=== PATIENT | male | born 1955 | race American Indian/Alaskan Native ===

== ENCOUNTER 2018-12-04 09:31 | Outpatient (CLI) | payer OTHER ==
--- NOTE | 2018-12-04 14:18 | Mammography Report ---
BILATERAL DIGITAL DIAGNOSTIC MAMMOGRAM with CAD and BILATERAL BREAST ULTRASOUND: 12/04/18 CLINICAL: 63-year-old male with a breast lump or mass identified on recent CT at [facility]. COMPARISON:08/29/15 FINDINGS: The breasts are mostly fatty.Moderate bilateral subareolar fibroglandular densities, left greater than right with a pattern that is stable since the previous exam. No mass, architectural distortion or suspicious calcifications. Ultrasound of both breasts (including all four quadrants and the retroareolar area) was performed and demonstrated moderate bilateral subareolar fibroglandular structures, greater on the left than the right. No mass or suspicious shadowing. Ultrasound of bilateral axillae demonstrated several bilateral axillary lymph nodes with central fat and benign morphology. No suspicious lymph nodes. IMPRESSION: No mammographic evidence of malignancy.Bilateral benign gynecomastia, worse on the left than the right. Bilateral benign axillary lymph nodes. No mass. BI-RADS CATEGORY: 2 -- Benign RECOMMENDATION: Clinical follow-up. COMMENT: Patient follow-up letters are generated by our [employer] application.
== END 2018-12-04 09:32 | disposition home or self-care (01) ==
LOC: MAMMO 09:31
DX: D36.0 Benign neoplasm of lymph nodes (principal); N62 Hypertrophy of breast
CPT/HCPCS: 77066

== ENCOUNTER 2020-09-07 12:46 | Inpatient (IN) | payer OTHER ==
[2020-09-07] MEDS ORDERED: MINERAL OIL/PETROLATUM, WHITE OPHTH OINT 3.5 GM OU PRN (13:08)
[2020-09-07] MEDS ORDERED: LIP THERAPY VASELINE TP PRN (13:08)
--- NOTE | 2020-09-07 13:11 | Emergency Department Report ---
<KARIN MEADE - Last Filed: 09/07/20 17:06> ED General Adult HPI - General Chief complaint: Cardiac Arrest/CPR Stated complaint: PASSED OUT Time Seen by Provider: 09/07/20 13:03 - Related Data Allergies Allergy/AdvReac Type Severity Reaction Status Date / Time Unable to Assess Allergy Verified 09/07/20 13:43 ED Medical Decision Making - Lab Data Result diagrams: 09/07/20 14:00 09/07/20 14:00 - Radiology Data Ordering Physician: JAZMÍN GASTELUM MD Date of Service: 09/07/20 Procedure(s): CT head/brain wo con Accession Number(s): [id number] cc: JAZMÍN GASTELUM MD CT head/brain wo con INDICATION: Altered Mental Status. TECHNIQUE: Routine CT head without contrast. All CT scans at this location are performed using CT dose reduction for ALARA by means of automated exposure control. COMPARISON: None. FINDINGS: BRAIN / INTRACRANIAL CONTENTS: No acute hemorrhage, mass effect, midline shift, or hydrocephalus. No appreciable acute large territorial or lacunar infarct. No chronic infarct or focal atrophy. Normal brain volume and ventricular/sulcal size for age. ORBITS: No significant abnormality of visualized orbits. SINUSES / MASTOIDS: No significant abnormality of visualized sinuses and mastoid air cells. ADDITIONAL FINDINGS: None. IMPRESSION: 1. No acute intracranial abnormality. Signer Name: Federico Valderrama MD Signed: 09/07/2020 4:40 PM Workstation Name: [id number] Patient was too large to fit in the CT scanner for CTA of the chest therefore a VQ scan was ordered. ED Disposition Clinical Impression: Cardiac arrest, Respiratory acidosis, Suspected 2019 novel coronavirus infection, Morbid obesity, Transaminitis Disposition: DC-09 OP ADMIT IP TO THIS HOSP Is pt being admited?: Yes Does the pt Need Aspirin: No Condition: Critical Time of Disposition: 17:07 <JAZMÍN GASTELUM - Last Filed: 09/08/20 11:16> ED General Adult HPI - General PUI?: Yes Source: EMS (Verbal report received from emergency medical services. EMS documentation not available at time of chart dictation ), RN notes reviewed Mode of arrival: Stretcher Limitations: Altered Mental Status, Physical Limitation - History of Present Illness Initial comments: The patient was evaluated in the emergency department for symptoms described in the history of present illness. He/she was evaluated in the context of the global COVID-19 pandemic, which necessitated consideration that the patient might be at risk for infection with the virus that causes COVID-19. Institutional protocols and algorithms that pertain to the evaluation of patients at risk for COVID-19 are in a state of rapid change based on information released by regulatory bodies including the CDC and federal and state organizations. These policies and algorithms were followed during the patient's care in the emergency department. Please note that these policies, procedures and recommendations changed on a rapid basis. During the entire history and physical examination, I had on complete personal protective equipment. The patient is a 65-year-old gentleman. He is not known to myself previously. He is brought to the hospital by emergency medical services as an out of hospital cardiac arrest. EMS reports that the patient was waiting to get Covid testing, and appeared to pass out. Apparently, CPR was started, uncertain if by fire department, BLS, or from family members. EMS also reports the patient was defibrillated at least x1, for uncertain rhythm. EMS reports to myself that the patient initially was in PEA. EMS unable to intubate patient, and thus placed a Dayron airway. They initiated high-quality CPR in the field, standard ACLS interventions, and were able to obtain return of spontaneous circulation. Upon arrival to this ER, patient receiving [id number] ventilation through a Dayron airway. He has sinus tachycardia and equal pulses. He has a GCS of 3. Emergently intubated by myself using maximum barrier precautions, using a glide scope, please see procedure note. At this time, patient still in a coma with a GCS of 3. He had nonspecific myoclonic jerking activity. He is not accompanied by friends or family at this time for additional information or collateral information. At this point time, no additional history is available. EMS verbally reports to myself that there was concern for possible Covid -: This afternoon Radiation: other Quality: other Consistency: other Improves with: other Worsens with: other Associated Symptoms: other Treatments Prior to Arrival: other ED Review of Systems ROS: Stated complaint: PASSED OUT Other details as noted in HPI Comment: Unobtainable due to pts medical conditions ED Physical Exam - General Limitations: Altered Mental Status General appearance: obtunded, obese - Head Head exam: Present: atraumatic, normocephalic - Eye Eye exam: Present: normal appearance, other (Pupils dilated and do not react to light) - ENT ENT exam: Present: normal exam, normal orophraynx, mucous membranes moist, normal external ear exam, other (Secretions noted in oropharynx) - Neck Neck exam: Present: normal inspection. Absent: tenderness, meningismus - Respiratory Respiratory exam: Present: respiratory distress, rhonchi - Cardiovascular Cardiovascular Exam: Present: regular rate, normal rhythm, normal heart sounds. Absent: bradycardia, tachycardia, irregular rhythm, systolic murmur, diastolic murmur, rubs, gallop - GI/Abdominal GI/Abdominal exam: Present: soft. Absent: distended, tenderness, guarding, rebound, rigid, pulsatile mass - Rectal Rectal exam: Present: normal inspection - exam: Present: normal inspection External exam: Present: normal external exam - Extremities Exam Extremities exam: Present: normal inspection, pedal edema, other (Puncture melton noted in the left lower extremity, consistent with EMS attempt at IO line placement) - Back Exam Back exam: Present: normal inspection. Absent: tenderness, CVA tenderness (R), CVA tenderness (L), paraspinal tenderness, vertebral tenderness - Neurological Exam Neurological exam: Present: altered, other (Nonverbal, intubated, GCS of 3) - Skin Skin exam: Present: warm, dry, intact, normal color. Absent: rash ED Course Vital Signs 09/07/20 09/07/20 09/07/20 13:00 13:10 13:30 Temperature Pulse Rate 82 94 H 88 Respiratory Rate Blood Pressure 132/68 Blood Pressure 197/91 199/87 [Left] O2 Sat by Pulse 92 99 95 Oximetry 09/07/20 09/07/20 09/07/20 14:00 14:30 14:37 Temperature Pulse Rate 75 76 74 Respiratory 28 H Rate Blood Pressure Blood Pressure 210/91 190/87 [Left] O2 Sat by Pulse 97 94 97 Oximetry 09/07/20 09/07/20 09/07/20 14:45 15:00 15:15 Temperature Pulse Rate 69 69 66 Respiratory 28 H 28 H 28 H Rate Blood Pressure 187/79 Blood Pressure 187/79 [Left] O2 Sat by Pulse 97 97 96 Oximetry 09/07/20 09/07/20 09/07/20 15:30 15:45 16:00 Temperature Pulse Rate 64 62 61 Respiratory 28 H 28 H 28 H Rate Blood Pressure 184/77 184/77 188/79 Blood Pressure 184/78 186/73 [Left] O2 Sat by Pulse 96 97 96 Oximetry 09/07/20 09/07/20 09/07/20 16:37 16:45 17:01 Temperature Pulse Rate 75 72 65 Respiratory 30 H 28 H 28 H Rate Blood Pressure 188/79 188/79 207/87 Blood Pressure [Left] O2 Sat by Pulse 99 99 99 Oximetry 09/07/20 09/07/20 09/07/20 17:15 17:31 17:45 Temperature Pulse Rate 60 70 89 Respiratory 28 H 28 H 32 H Rate Blood Pressure 188/79 194/46 194/46 Blood Pressure [Left] O2 Sat by Pulse 99 94 86 Oximetry 09/07/20 09/07/20 09/07/20 18:01 18:15 18:31 Temperature Pulse Rate 96 H 108 H 82 Respiratory 33 H 33 H 31 H Rate Blood Pressure 220/88 225/78 226/80 Blood Pressure [Left] O2 Sat by Pulse 90 88 96 Oximetry 09/07/20 09/07/20 09/07/20 18:32 18:45 19:00 Temperature Pulse Rate 92 H 110 H Respiratory 35 H 35 H Rate Blood Pressure 226/80 157/73 Blood Pressure [Left] O2 Sat by Pulse 92 Oximetry 09/07/20 09/07/20 09/07/20 19:30 19:31 20:00 Temperature Pulse Rate 120 H 114 H 117 H Respiratory 27 H 25 H Rate Blood Pressure 162/52 130/51 Blood Pressure [Left] O2 Sat by Pulse 94 94 Oximetry 09/07/20 09/07/20 09/07/20 20:31 21:01 21:30 Temperature Pulse Rate 120 H 119 H 119 H Respiratory 29 H 28 H 30 H Rate Blood Pressure 141/48 134/47 156/56 Blood Pressure [Left] O2 Sat by Pulse 93 97 97 Oximetry 09/07/20 09/07/20 09/07/20 22:01 22:30 23:01 Temperature Pulse Rate 116 H 111 H 109 H Respiratory 20 31 H 28 H Rate Blood Pressure 130/41 118/37 133/51 Blood Pressure [Left] O2 Sat by Pulse 93 91 94 Oximetry 09/07/20 09/07/20 09/07/20 23:30 23:41 23:57 Temperature Pulse Rate 102 H 113 H 71 Respiratory 27 H 23 Rate Blood Pressure 138/45 140/123 140/123 Blood Pressure [Left] O2 Sat by Pulse 99 93 92 Oximetry 09/08/20 09/08/20 09/08/20 00:30 00:45 01:00 Temperature 103.8 F H Pulse Rate 63 58 L Respiratory 15 27 H Rate Blood Pressure 80/34 84/36 Blood Pressure [Left] O2 Sat by Pulse 99 95 Oximetry 09/08/20 09/08/20 09/08/20 01:15 01:31 01:45 Temperature Pulse Rate 54 L 54 L 54 L Respiratory 11 L 12 12 Rate Blood Pressure 75/33 82/38 84/37 Blood Pressure [Left] O2 Sat by Pulse 97 99 100 Oximetry 09/08/20 09/08/20 09/08/20 02:01 02:15 02:31 Temperature 101.3 F H Pulse Rate 53 L 56 L 56 L Respiratory 12 16 16 Rate Blood Pressure 80/35 95/38 Blood Pressure 92/38 [Left] O2 Sat by Pulse 100 99 100 Oximetry 09/08/20 09/08/20 09/08/20 02:45 03:00 03:31 Temperature Pulse Rate 66 62 58 L Respiratory 15 12 11 L Rate Blood Pressure 95/38 85/34 100/46 Blood Pressure [Left] O2 Sat by Pulse 100 100 100 Oximetry 09/08/20 09/08/20 09/08/20 03:45 04:00 04:15 Temperature Pulse Rate 59 L 73 70 Respiratory 15 24 16 Rate Blood Pressure 100/46 104/43 104/43 Blood Pressure [Left] O2 Sat by Pulse 99 96 98 Oximetry 09/08/20 09/08/20 09/08/20 04:25 04:30 04:45 Temperature Pulse Rate 73 69 61 Respiratory 19 25 H Rate Blood Pressure 104/44 117/46 117/46 Blood Pressure [Left] O2 Sat by Pulse 98 100 100 Oximetry 09/08/20 09/08/20 09/08/20 05:00 05:15 05:30 Temperature 104.8 F H Pulse Rate 60 62 68 Respiratory 14 13 30 H Rate Blood Pressure 98/41 120/51 Blood Pressure 106/42 [Left] O2 Sat by Pulse 100 100 100 Oximetry 09/08/20 09/08/20 05:45 06:00 Temperature Pulse Rate 68 67 Respiratory 30 H 30 H Rate Blood Pressure 121/52 129/59 Blood Pressure [Left] O2 Sat by Pulse 100 100 Oximetry - Reevaluation(s) Reevaluation #1: 09/07/20 14:58 Differential diagnosis, including but not limited to: Acute coronary syndrome, pulmonary embolism, intracranial hemorrhage, hypercarbic arrest, hypoxemic arres t, multifactorial cardiac arrest Assessment and plan: 65-year-old gentleman, morbidly obese, status post out of hospital cardiac arrest, nontraumatic, with return of spontaneous circulation, GCS of 3 at this time. This hospital does not have a postarrest hypothermia protocol at this time. We will obtain appropriate laboratory studies, and obtain emergent CT scan of the brain, CT angiogram chest to exclude bleed, dissection, pulmonary embolism. Patient will ventilated on lung protective strategy, initial arterial blood gas demonstrated uncompensated respiratory acidosis. Initial lactic acid reviewed and appreciated, likely secondary to cardiac arrest. Patient does not require vasopressor support at this time, in fact he is rather hypertensive. Contacted critical care physician on-call, Dr. Carrillo, discussed current patient history and physical, he agrees with placement into the intensive care unit. He requests that patient not be maintained on sedative drips. Unfortunately, one of our respiratory therapists sustained an accidental needlestick injury, while caring for this patient. Therefore, we contacted the patient's , who provided verbal consent over the phone for emergent testing for HIV, and hepatitis. We are waiting for remainder of laboratory studies, CT scan of the brain, and CT scan of the chest at this time. He will likely require admission to our ICU, i f no condition is identified that would require transfer. Elevated troponin is likely a type II troponin leak, likely secondary to cardiac arrest, and CPR. Given concern for Covid, patient will be given Decadron empirically. He will be maintained on isolation precautions, and a courtesy consultation will be placed to infectious disease. Reassess after initial data points. 09/07/20 15:03 171 lbs [place] Body Weight Equivalent to 78 kg Actual body weight is 103% (1.0x) ideal body weight We will therefore use 78 kg to guide fluid resuscitative therapy 09/07/20 15:06 Transaminitis reviewed and appreciated. Uncertain if shock liver, secondary to Covid pathology, or both. Mild renal insufficiency appreciated, however, GFR greater than 40. Should be okay for CT angiogram. Reevaluation #2: 09/07/20 15:35 Inflammatory markers elevated, suggestive of Covid. CT scan brain, chest pending. Discussed patient's case with hospital physician, Dr. Khai Wilkins, We discussed the patient's history, physical, pertinent laboratory studies. He requests call back once CT scans have resulted. Care will be transferred to the oncoming physician, Dr. Nicci Meade, to follow-up on the aforementioned CT scans, and if no pathology identified that would require transfer for higher level of care, patient to be admitted to our intensive care unit. - Intubation Time Out Performed: No (Emergency situation) Laryngoscope: fiberoptic video scope Size: 3 Assist Device Used: fiberoptic device ET Tube Size: 7.5 Tube Secured Depth (cm): 23 Tube Secured Location: teeth Tube Placement Confirmation: visualized tube passing t, equal breath sounds bilat, no breath sounds over epi, confirmation by capnometr Patient Tolerated Procedure: well Intubation Complications: none ED Medical Decision Making - Lab Data Result diagrams: 09/07/20 14:00 09/07/20 14:00 Vital Signs 09/07/20 09/07/20 09/07/20 13:00 13:10 13:30 Pulse Rate 82 94 H 88 Blood Pressure 132/68 Blood Pressure 197/91 199/87 [Left] O2 Sat by Pulse 92 99 95 Oximetry 09/07/20 09/07/20 14:00 14:30 Pulse Rate 75 76 Blood Pressure Blood Pressure 210/91 190/87 [Left] O2 Sat by Pulse 97 94 Oximetry Lab Results 09/07/20 09/07/20 09/07/20 Range/Units 13:08 14:00 14:00 WBC 15.7 H (4.5-11.0) K/mm3 RBC 3.71 (3.65-5.03) M/mm3 Hgb 10.2 L (11.8-15.2) gm/dl Hct 32.5 L (35.5-45.6) % MCV 88 (84-94) fl MCH 28 (28-32) pg MCHC 31 L (32-34) % RDW 17.5 H (13.2-15.2) % Plt Count 301 (140-440) K/mm3 Add Manual Diff Complete Total Counted 100 Seg Neuts % (Manual) 72.0 H (40.0-70.0) % Lymphocytes % (Manual) 17.0 (13.4-35.0) % Monocytes % (Manual) 8.0 H (0.0-7.3) % Eosinophils % (Manual) 2.0 (0.0-4.3) % Metamyelocytes % 1.0 % Nucleated RBC % Not Reportable Seg Neutrophils # Man 11.3 H (1.8-7.7) K/mm3 Band Neutrophils # 0.0 K/mm3 Lymphocytes # (Manual) 2.7 (1.2-5.4) K/mm3 Abs React Lymphs (Man) 0.0 K/mm3 Monocytes # (Manual) 1.3 H (0.0-0.8) K/mm3 Eosinophils # (Manual) 0.3 (0.0-0.4) K/mm3 Basophils # (Manual) 0.0 (0.0-0.1) K/mm3 Metamyelocytes # 0.2 K/mm3 Myelocytes # 0.0 K/mm3 Promyelocytes # 0.0 K/mm3 Blast Cells # 0.0 K/mm3 WBC Morphology Not Reportable Hypersegmented Neuts Not Reportable Hyposegmented Neuts Not Reportable Hypogranular Neuts Not Reportable Smudge Cells Not Reportable Toxic Granulation Not Reportable Toxic Vacuolation Not Reportable Dohle Bodies Not Reportable Pelger-Huet Anomaly Not Reportable Justus Rods Not Reportable Platelet Estimate Consistent w auto Clumped Platelets Not Reportable Plt Clumps, EDTA Not Reportable Large Platelets Few Giant Platelets Rare Platelet Satelliting Not Reportable Plt Morphology Comment Not Reportable RBC Morphology Not Reportable Dimorphic RBCs Not Reportable Polychromasia Not Reportable Hypochromasia Not Reportable Poikilocytosis Not Reportable Anisocytosis 1+ Microcytosis Not Reportable Macrocytosis Not Reportable Spherocytes Not Reportable Pappenheimer Bodies Not Reportable Sickle Cells Not Reportable Target Cells Not Reportable Tear Drop Cells Not Reportable Ovalocytes Not Reportable Helmet Cells Not Reportable Batres-Ryegate Bodies Not Reportable [place] Rings Not Reportable [place] Cells Not Reportable Bite Cells Not Reportable Crenated Cell Not Reportable Elliptocytes Not Reportable Acanthocytes (Spur) Not Reportable Rouleaux Not Reportable Hemoglobin C Crystals Not Reportable Schistocytes Not Reportable Malaria parasites Not Reportable [place] Bodies Not Reportable Hem Pathologist Commnt No PT 13.7 (12.2-14.9) Sec. INR 1.06 (0.87-1.13) APTT 33.8 (24.2-36.6) Sec. D-Dimer 8315.85 H (0-234) ng/mlDDU ABG pH (7.320-7.450) POC ABG pCO2 (32.0-48.0) mmHg POC ABG pO2 (83-108) mmHg POC ABG HCO3 POC ABG Base Excess ABG Hemoglobin (12.0-17.5) ABG Oxyhemoglobin (94-98) ABG Methemoglobin (0.0-1.5) ABG Sodium (136.0-145.0) mmol/L ABG Potassium (3.40-4.50) mmol/L ABG Chloride (98-107) mmol/L ABG Glucose (65-95) mg/dL Carboxyhemoglobin (0.5-1.5) FiO2 Estimated GFR ml/min BUN/Creatinine Ratio % Glucose (75-100) mg/dL Lactic Acid (0.7-2.0) mmol/L Lactate Dehydrogenase (91-180) units/L Total Creatine Kinase (55-170) units/L Troponin T (0.00-0.029) ng/mL C-Reactive Protein (0.00-1.30) mg/dL Albumin/Globulin Ratio % TSH (0.270-4.200) mlU/mL Arterial Blood Glucose (65-95) mg/dL Arterial Blood Ionized Calcium (4.6-5.3) mg/dL Urine Color Straw (Yellow) Urine Turbidity Slightly-cloudy (Clear) Urine pH 8.0 H (5.0-7.0) Ur Specific Boaz 1.006 (1.003-1.030) Urine Protein 100 mg/dl (Negative) mg/dL Urine Glucose (UA) Neg (Negative) mg/dL Urine Ketones Neg (Negative) mg/dL Urine Blood Neg (Negative) Urine Nitrite Neg (Negative) Urine Bilirubin Neg (Negative) Urine Urobilinogen < 2.0 (<2.0) mg/dL Ur Leukocyte Esterase Neg (Negative) Urine WBC (Auto) 4.0 (0.0-6.0) /HPF Urine RBC (Auto) 18.0 (0.0-6.0) /HPF U Epithel Cells (Auto) 1.0 (0-13.0) /HPF Urine Mucus Few /HPF Urine Sperm 3+ (REGISTER CLERK) /HPF Salicylates (2.8-20.0) mg/dL Acetaminophen (10.0-30.0) ug/mL Plasma/Serum Alcohol (0-0.07) % Blood Type 09/07/20 09/07/20 09/07/20 Range/Units 14:00 14:00 14:00 WBC (4.5-11.0) K/mm3 RBC (3.65-5.03) M/mm3 Hgb (11.8-15.2) gm/dl Hct (35.5-45.6) % MCV (84-94) fl MCH (28-32) pg MCHC (32-34) % RDW (13.2-15.2) % Plt Count (140-440) K/mm3 Add Manual Diff Total Counted Seg Neuts % (Manual) (40.0-70.0) % Lymphocytes % (Manual) (13.4-35.0) % Monocytes % (Manual) (0.0-7.3) % Eosinophils % (Manual) (0.0-4.3) % Metamyelocytes % % Nucleated RBC % Seg Neutrophils # Man (1.8-7.7) K/mm3 Band Neutrophils # K/mm3 Lymphocytes # (Manual) (1.2-5.4) K/mm3 Abs React Lymphs (Man) K/mm3 Monocytes # (Manual) (0.0-0.8) K/mm3 Eosinophils # (Manual) (0.0-0.4) K/mm3 Basophils # (Manual) (0.0-0.1) K/mm3 Metamyelocytes # K/mm3 Myelocytes # K/mm3 Promyelocytes # K/mm3 Blast Cells # K/mm3 WBC Morphology Hypersegmented Neuts Hyposegmented Neuts Hypogranular Neuts Smudge Cells Toxic Granulation Toxic Vacuolation Dohle Bodies Pelger-Huet Anomaly Justus Rods Platelet Estimate Clumped Platelets Plt Clumps, EDTA Large Platelets Giant Platelets Platelet Satelliting Plt Morphology Comment RBC Morphology Dimorphic RBCs Polychromasia Hypochromasia Poikilocytosis Anisocytosis Microcytosis Macrocytosis Spherocytes Pappenheimer Bodies Sickle Cells Target Cells Tear Drop Cells Ovalocytes Helmet Cells Batres-Ryegate Bodies [place] Rings Manjit Cells Bite Cells Crenated Cell Elliptocytes Acanthocytes (Spur) Rouleaux Hemoglobin C Crystals Schistocytes Malaria parasites Tommie Bodies Hem Pathologist Commnt PT (12.2-14.9) Sec. INR (0.87-1.13) APTT (24.2-36.6) Sec. D-Dimer (0-234) ng/mlDDU ABG pH (7.320-7.450) POC ABG pCO2 (32.0-48.0) mmHg POC ABG pO2 (83-108) mmHg POC ABG HCO3 POC ABG Base Excess ABG Hemoglobin (12.0-17.5) ABG Oxyhemoglobin (94-98) ABG Methemoglobin (0.0-1.5) ABG Sodium (136.0-145.0) mmol/L ABG Potassium (3.40-4.50) mmol/L ABG Chloride (98-107) mmol/L ABG Glucose (65-95) mg/dL Carboxyhemoglobin (0.5-1.5) FiO2 Estimated GFR ml/min BUN/Creatinine Ratio % Glucose 98 (75-100) mg/dL Lactic Acid 4.30 H* (0.7-2.0) mmol/L Lactate Dehydrogenase 882 H (91-180) units/L Total Creatine Kinase 477 H (55-170) units/L Troponin T 0.076 H (0.00-0.029) ng/mL C-Reactive Protein 1.10 (0.00-1.30) mg/dL Albumin/Globulin Ratio % TSH 2.290 (0.270-4.200) mlU/mL Arterial Blood Glucose (65-95) mg/dL Arterial Blood Ionized Calcium (4.6-5.3) mg/dL Urine Color (Yellow) Urine Turbidity (Clear) Urine pH (5.0-7.0) Ur Specific Boaz (1.003-1.030) Urine Protein (Negative) mg/dL Urine Glucose (UA) (Negative) mg/dL Urine Ketones (Negative) mg/dL Urine Blood (Negative) Urine Nitrite (Negative) Urine Bilirubin (Negative) Urine Urobilinogen (<2.0) mg/dL Ur Leukocyte Esterase (Negative) Urine WBC (Auto) (0.0-6.0) /HPF Urine RBC (Auto) (0.0-6.0) /HPF U Epithel Cells (Auto) (0-13.0) /HPF Urine Mucus /HPF Urine Sperm (REGISTER CLERK) /HPF Salicylates (2.8-20.0) mg/dL Acetaminophen (10.0-30.0) ug/mL Plasma/Serum Alcohol (0-0.07) % Blood Type 09/07/20 09/07/20 09/07/20 Range/Units 14:00 14:00 14:00 WBC (4.5-11.0) K/mm3 RBC (3.65-5.03) M/mm3 Hgb (11.8-15.2) gm/dl Hct (35.5-45.6) % MCV (84-94) fl MCH (28-32) pg MCHC (32-34) % RDW (13.2-15.2) % Plt Count (140-440) K/mm3 Add Manual Diff Total Counted Seg Neuts % (Manual) (40.0-70.0) % Lymphocytes % (Manual) (13.4-35.0) % Monocytes % (Manual) (0.0-7.3) % Eosinophils % (Manual) (0.0-4.3) % Metamyelocytes % % Nucleated RBC % Seg Neutrophils # Man (1.8-7.7) K/mm3 Band Neutrophils # K/mm3 Lymphocytes # (Manual) (1.2-5.4) K/mm3 Abs React Lymphs (Man) K/mm3 Monocytes # (Manual) (0.0-0.8) K/mm3 Eosinophils # (Manual) (0.0-0.4) K/mm3 Basophils # (Manual) (0.0-0.1) K/mm3 Metamyelocytes # K/mm3 Myelocytes # K/mm3 Promyelocytes # K/mm3 Blast Cells # K/mm3 WBC Morphology Hypersegmented Neuts Hyposegmented Neuts Hypogranular Neuts Smudge Cells Toxic Granulation Toxic Vacuolation Dohle Bodies Pelger-Huet Anomaly Justus Rods Platelet Estimate Clumped Platelets Plt Clumps, EDTA Large Platelets Giant Platelets Platelet Satelliting Plt Morphology Comment RBC Morphology Dimorphic RBCs Polychromasia Hypochromasia Poikilocytosis Anisocytosis Microcytosis Macrocytosis Spherocytes Pappenheimer Bodies Sickle Cells Target Cells Tear Drop Cells Ovalocytes Helmet Cells Batres-Ryegate Bodies [place] Rings [place] Cells Bite Cells Crenated Cell Elliptocytes Acanthocytes (Spur) Rouleaux Hemoglobin C Crystals Schistocytes Malaria parasites Tommie Bodies Hem Pathologist Commnt PT (12.2-14.9) Sec. INR (0.87-1.13) APTT (24.2-36.6) Sec. D-Dimer (0-234) ng/mlDDU ABG pH (7.320-7.450) POC ABG pCO2 (32.0-48.0) mmHg POC ABG pO2 (83-108) mmHg POC ABG HCO3 POC ABG Base Excess ABG Hemoglobin (12.0-17.5) ABG Oxyhemoglobin (94-98) ABG Methemoglobin (0.0-1.5) ABG Sodium (136.0-145.0) mmol/L ABG Potassium (3.40-4.50) mmol/L ABG Chloride (98-107) mmol/L ABG Glucose (65-95) mg/dL Carboxyhemoglobin (0.5-1.5) FiO2 Estimated GFR ml/min BUN/Creatinine Ratio % Glucose (75-100) mg/dL Lactic Acid (0.7-2.0) mmol/L Lactate Dehydrogenase (91-180) units/L Total Creatine Kinase (55-170) units/L Troponin T (0.00-0.029) ng/mL C-Reactive Protein (0.00-1.30) mg/dL Albumin/Globulin Ratio % TSH (0.270-4.200) mlU/mL Arterial Blood Glucose (65-95) mg/dL Arterial Blood Ionized Calcium (4.6-5.3) mg/dL Urine Color (Yellow) Urine Turbidity (Clear) Urine pH (5.0-7.0) Ur Specific [place] (1.003-1.030) Urine Protein (Negative) mg/dL Urine Glucose (UA) (Negative) mg/dL Urine Ketones (Negative) mg/dL Urine Blood (Negative) Urine Nitrite (Negative) Urine Bilirubin (Negative) Urine Urobilinogen (<2.0) mg/dL Ur Leukocyte Esterase (Negative) Urine WBC (Auto) (0.0-6.0) /HPF Urine RBC (Auto) (0.0-6.0) /HPF U Epithel Cells (Auto) (0-13.0) /HPF Urine Mucus /HPF Urine Sperm (REGISTER CLERK) /HPF Salicylates < 0.3 L (2.8-20.0) mg/dL Acetaminophen 5.0 L (10.0-30.0) ug/mL Plasma/Serum Alcohol < 0.01 (0-0.07) % Blood Type 09/07/20 09/07/20 09/07/20 Range/Units 14:00 14:00 14:26 WBC (4.5-11.0) K/mm3 RBC (3.65-5.03) M/mm3 Hgb (11.8-15.2) gm/dl Hct (35.5-45.6) % MCV (84-94) fl MCH (28-32) pg MCHC (32-34) % RDW (13.2-15.2) % Plt Count (140-440) K/mm3 Add Manual Diff Total Counted Seg Neuts % (Manual) (40.0-70.0) % Lymphocytes % (Manual) (13.4-35.0) % Monocytes % (Manual) (0.0-7.3) % Eosinophils % (Manual) (0.0-4.3) % Metamyelocytes % % Nucleated RBC % Seg Neutrophils # Man (1.8-7.7) K/mm3 Band Neutrophils # K/mm3 Lymphocytes # (Manual) (1.2-5.4) K/mm3 Abs React Lymphs (Man) K/mm3 Monocytes # (Manual) (0.0-0.8) K/mm3 Eosinophils # (Manual) (0.0-0.4) K/mm3 Basophils # (Manual) (0.0-0.1) K/mm3 Metamyelocytes # K/mm3 Myelocytes # K/mm3 Promyelocytes # K/mm3 Blast Cells # K/mm3 WBC Morphology Hypersegmented Neuts Hyposegmented Neuts Hypogranular Neuts Smudge Cells Toxic Granulation Toxic Vacuolation Dohle Bodies Pelger-Huet Anomaly Justus Rods Platelet Estimate Clumped Platelets Plt Clumps, EDTA Large Platelets Giant Platelets Platelet Satelliting Plt Morphology Comment RBC Morphology Dimorphic RBCs Polychromasia Hypochromasia Poikilocytosis Anisocytosis Microcytosis Macrocytosis Spherocytes Pappenheimer Bodies Sickle Cells Target Cells Tear Drop Cells Ovalocytes Helmet Cells Batres-Ryegate Bodies [place] Rings [place] Cells Bite Cells Crenated Cell Elliptocytes Acanthocytes (Spur) Rouleaux Hemoglobin C Crystals Schistocytes Malaria parasites Tommie Bodies Hem Pathologist Commnt PT (12.2-14.9) Sec. INR (0.87-1.13) APTT (24.2-36.6) Sec. D-Dimer (0-234) ng/mlDDU ABG pH 7.037 L (7.320-7.450) POC ABG pCO2 92.4 H (32.0-48.0) mmHg POC ABG pO2 130.8 H (83-108) mmHg POC ABG HCO3 24.3 POC ABG Base Excess -7.7 ABG Hemoglobin 11.3 L (12.0-17.5) ABG Oxyhemoglobin 96.6 (94-98) ABG Methemoglobin 0.1 (0.0-1.5) ABG Sodium 141.6 (136.0-145.0) mmol/L ABG Potassium 4.3 (3.40-4.50) mmol/L ABG Chloride 107.0 (98-107) mmol/L ABG Glucose 95 (65-95) mg/dL Carboxyhemoglobin 0.7 (0.5-1.5) FiO2 100 Estimated GFR 46 ml/min BUN/Creatinine Ratio 11 % Glucose (75-100) mg/dL Lactic Acid (0.7-2.0) mmol/L Lactate Dehydrogenase (91-180) units/L Total Creatine Kinase (55-170) units/L Troponin T (0.00-0.029) ng/mL C-Reactive Protein (0.00-1.30) mg/dL Albumin/Globulin Ratio 1.0 % TSH (0.270-4.200) mlU/mL Arterial Blood Glucose 95 (65-95) mg/dL Arterial Blood Ionized Calcium 5.1 (4.6-5.3) mg/dL Urine Color (Yellow) Urine Turbidity (Clear) Urine pH (5.0-7.0) Ur Specific Boaz (1.003-1.030) Urine Protein (Negative) mg/dL Urine Glucose (UA) (Negative) mg/dL Urine Ketones (Negative) mg/dL Urine Blood (Negative) Urine Nitrite (Negative) Urine Bilirubin (Negative) Urine Urobilinogen (<2.0) mg/dL Ur Leukocyte Esterase (Negative) Urine WBC (Auto) (0.0-6.0) /HPF Urine RBC (Auto) (0.0-6.0) /HPF U Epithel Cells (Auto) (0-13.0) /HPF Urine Mucus /HPF Urine Sperm (REGISTER CLERK) /HPF Salicylates (2.8-20.0) mg/dL Acetaminophen (10.0-30.0) ug/mL Plasma/Serum Alcohol (0-0.07) % Blood Type O POSITIVE Lab Results 09/07/20 09/07/20 09/07/20 Range/Units 13:08 14:00 14:00 WBC 15.7 H (4.5-11.0) K/mm3 RBC 3.71 (3.65-5.03) M/mm3 Hgb 10.2 L (11.8-15.2) gm/dl Hct 32.5 L (35.5-45.6) % MCV 88 (84-94) fl MCH 28 (28-32) pg MCHC 31 L (32-34) % RDW 17.5 H (13.2-15.2) % Plt Count 301 (140-440) K/mm3 Add Manual Diff Complete Total Counted 100 Seg Neuts % (Manual) 72.0 H (40.0-70.0) % Lymphocytes % (Manual) 17.0 (13.4-35.0) % Monocytes % (Manual) 8.0 H (0.0-7.3) % Eosinophils % (Manual) 2.0 (0.0-4.3) % Metamyelocytes % 1.0 % Nucleated RBC % Not Reportable Seg Neutrophils # Man 11.3 H (1.8-7.7) K/mm3 Band Neutrophils # 0.0 K/mm3 Lymphocytes # (Manual) 2.7 (1.2-5.4) K/mm3 Abs React Lymphs (Man) 0.0 K/mm3 Monocytes # (Manual) 1.3 H (0.0-0.8) K/mm3 Eosinophils # (Manual) 0.3 (0.0-0.4) K/mm3 Basophils # (Manual) 0.0 (0.0-0.1) K/mm3 Metamyelocytes # 0.2 K/mm3 Myelocytes # 0.0 K/mm3 Promyelocytes # 0.0 K/mm3 Blast Cells # 0.0 K/mm3 WBC Morphology Not Reportable Hypersegmented Neuts Not Reportable Hyposegmented Neuts Not Reportable Hypogranular Neuts Not Reportable Smudge Cells Not Reportable Toxic Granulation Not Reportable Toxic Vacuolation Not Reportable Dohle Bodies Not Reportable Pelger-Huet Anomaly Not Reportable Justus Rods Not Reportable Platelet Estimate Consistent w auto Clumped Platelets Not Reportable Plt Clumps, EDTA Not Reportable Large Platelets Few Giant Platelets Rare Platelet Satelliting Not Reportable Plt Morphology Comment Not Reportable RBC Morphology Not Reportable Dimorphic RBCs Not Reportable Polychromasia Not Reportable Hypochromasia Not Reportable Poikilocytosis Not Reportable Anisocytosis 1+ Microcytosis Not Reportable Macrocytosis Not Reportable Spherocytes Not Reportable Pappenheimer Bodies Not Reportable Sickle Cells Not Reportable Target Cells Not Reportable Tear Drop Cells Not Reportable Ovalocytes Not Reportable Helmet Cells Not Reportable Batres-Ryegate Bodies Not Reportable [place] Rings Not Reportable Manjit Cells Not Reportable Bite Cells Not Reportable Crenated Cell Not Reportable Elliptocytes Not Reportable Acanthocytes (Spur) Not Reportable Rouleaux Not Reportable Hemoglobin C Crystals Not Reportable Schistocytes Not Reportable Malaria parasites Not Reportable [place]mie Bodies Not Reportable Hem Pathologist Commnt No PT 13.7 (12.2-14.9) Sec. INR 1.06 (0.87-1.13) APTT 33.8 (24.2-36.6) Sec. D-Dimer 8315.85 H (0-234) ng/mlDDU ABG pH (7.320-7.450) POC ABG pCO2 (32.0-48.0) mmHg POC ABG pO2 (83-108) mmHg POC ABG HCO3 POC ABG Base Excess ABG Hemoglobin (12.0-17.5) ABG Oxyhemoglobin (94-98) ABG Methemoglobin (0.0-1.5) ABG Sodium (136.0-145.0) mmol/L ABG Potassium (3.40-4.50) mmol/L ABG Chloride (98-107) mmol/L ABG Glucose (65-95) mg/dL Carboxyhemoglobin (0.5-1.5) FiO2 Sodium (137-145) mmol/L Potassium (3.6-5.0) mmol/L Chloride (98-107) mmol/L Carbon Dioxide (22-30) mmol/L Anion Gap mmol/L BUN (9-20) mg/dL Creatinine (0.8-1.3) mg/dL Estimated GFR ml/min BUN/Creatinine Ratio % Glucose (75-100) mg/dL Lactic Acid (0.7-2.0) mmol/L Calcium (8.4-10.2) mg/dL Total Bilirubin (0.1-1.2) mg/dL AST (5-40) units/L ALT (7-56) units/L Alkaline Phosphatase (35-129) units/L Lactate Dehydrogenase (91-180) units/L Total Creatine Kinase (55-170) units/L Troponin T (0.00-0.029) ng/mL C-Reactive Protein (0.00-1.30) mg/dL Total Protein (6.3-8.2) g/dL Albumin (3.9-5) g/dL Albumin/Globulin Ratio % TSH (0.270-4.200) mlU/mL Arterial Blood Glucose (65-95) mg/dL Arterial Blood Ionized Calcium (4.6-5.3) mg/dL Urine Color Straw (Yellow) Urine Turbidity Slightly-cloudy (Clear) Urine pH 8.0 H (5.0-7.0) Ur Specific Boaz 1.006 (1.003-1.030) Urine Protein 100 mg/dl (Negative) mg/dL Urine Glucose (UA) Neg (Negative) mg/dL Urine Ketones Neg (Negative) mg/dL Urine Blood Neg (Negative) Urine Nitrite Neg (Negative) Urine Bilirubin Neg (Negative) Urine Urobilinogen < 2.0 (<2.0) mg/dL Ur Leukocyte Esterase Neg (Negative) Urine WBC (Auto) 4.0 (0.0-6.0) /HPF Urine RBC (Auto) 18.0 (0.0-6.0) /HPF U Epithel Cells (Auto) 1.0 (0-13.0) /HPF Urine Mucus Few /HPF Urine Sperm 3+ (REGISTER CLERK) /HPF Salicylates (2.8-20.0) mg/dL Acetaminophen (10.0-30.0) ug/mL Plasma/Serum Alcohol (0-0.07) % Blood Type Antibody Screen 09/07/20 09/07/20 09/07/20 Range/Units 14:00 14:00 14:00 WBC (4.5-11.0) K/mm3 RBC (3.65-5.03) M/mm3 Hgb (11.8-15.2) gm/dl Hct (35.5-45.6) % MCV (84-94) fl MCH (28-32) pg MCHC (32-34) % RDW (13.2-15.2) % Plt Count (140-440) K/mm3 Add Manual Diff Total Counted Seg Neuts % (Manual) (40.0-70.0) % Lymphocytes % (Manual) (13.4-35.0) % Monocytes % (Manual) (0.0-7.3) % Eosinophils % (Manual) (0.0-4.3) % Metamyelocytes % % Nucleated RBC % Seg Neutrophils # Man (1.8-7.7) K/mm3 Band Neutrophils # K/mm3 Lymphocytes # (Manual) (1.2-5.4) K/mm3 Abs React Lymphs (Man) K/mm3 Monocytes # (Manual) (0.0-0.8) K/mm3 Eosinophils # (Manual) (0.0-0.4) K/mm3 Basophils # (Manual) (0.0-0.1) K/mm3 Metamyelocytes # K/mm3 Myelocytes # K/mm3 Promyelocytes # K/mm3 Blast Cells # K/mm3 WBC Morphology Hypersegmented Neuts Hyposegmented Neuts Hypogranular Neuts Smudge Cells Toxic Granulation Toxic Vacuolation Dohle Bodies Pelger-Huet Anomaly Justus Rods Platelet Estimate Clumped Platelets Plt Clumps, EDTA Large Platelets Giant Platelets Platelet Satelliting Plt Morphology Comment RBC Morphology Dimorphic RBCs Polychromasia Hypochromasia Poikilocytosis Anisocytosis Microcytosis Macrocytosis Spherocytes Pappenheimer Bodies Sickle Cells Target Cells Tear Drop Cells Ovalocytes Helmet Cells Batres-Ryegate Bodies [place] Rings Manjit Cells Bite Cells Crenated Cell Elliptocytes Acanthocytes (Spur) Rouleaux Hemoglobin C Crystals Schistocytes Malaria parasites Tommie Bodies Hem Pathologist Commnt PT (12.2-14.9) Sec. INR (0.87-1.13) APTT (24.2-36.6) Sec. D-Dimer (0-234) ng/mlDDU ABG pH (7.320-7.450) POC ABG pCO2 (32.0-48.0) mmHg POC ABG pO2 (83-108) mmHg POC ABG HCO3 POC ABG Base Excess ABG Hemoglobin (12.0-17.5) ABG Oxyhemoglobin (94-98) ABG Methemoglobin (0.0-1.5) ABG Sodium (136.0-145.0) mmol/L ABG Potassium (3.40-4.50) mmol/L ABG Chloride (98-107) mmol/L ABG Glucose (65-95) mg/dL Carboxyhemoglobin (0.5-1.5) FiO2 Sodium (137-145) mmol/L Potassium (3.6-5.0) mmol/L Chloride (98-107) mmol/L Carbon Dioxide (22-30) mmol/L Anion Gap mmol/L BUN (9-20) mg/dL Creatinine (0.8-1.3) mg/dL Estimated GFR ml/min BUN/Creatinine Ratio % Glucose 98 (75-100) mg/dL Lactic Acid 4.30 H* (0.7-2.0) mmol/L Calcium (8.4-10.2) mg/dL Total Bilirubin (0.1-1.2) mg/dL AST (5-40) units/L ALT (7-56) units/L Alkaline Phosphatase (35-129) units/L Lactate Dehydrogenase 882 H (91-180) units/L Total Creatine Kinase 477 H (55-170) units/L Troponin T 0.076 H (0.00-0.029) ng/mL C-Reactive Protein 1.10 (0.00-1.30) mg/dL Total Protein (6.3-8.2) g/dL Albumin (3.9-5) g/dL Albumin/Globulin Ratio % TSH 2.290 (0.270-4.200) mlU/mL Arterial Blood Glucose (65-95) mg/dL Arterial Blood Ionized Calcium (4.6-5.3) mg/dL Urine Color (Yellow) Urine Turbidity (Clear) Urine pH (5.0-7.0) Ur Specific Boaz (1.003-1.030) Urine Protein (Negative) mg/dL Urine Glucose (UA) (Negative) mg/dL Urine Ketones (Negative) mg/dL Urine Blood (Negative) Urine Nitrite (Negative) Urine Bilirubin (Negative) Urine Urobilinogen (<2.0) mg/dL Ur Leukocyte Esterase (Negative) Urine WBC (Auto) (0.0-6.0) /HPF Urine RBC (Auto) (0.0-6.0) /HPF U Epithel Cells (Auto) (0-13.0) /HPF Urine Mucus /HPF Urine Sperm (REGISTER CLERK) /HPF Salicylates (2.8-20.0) mg/dL Acetaminophen (10.0-30.0) ug/mL Plasma/Serum Alcohol (0-0.07) % Blood Type Antibody Screen 09/07/20 09/07/20 09/07/20 Range/Units 14:00 14:00 14:00 WBC (4.5-11.0) K/mm3 RBC (3.65-5.03) M/mm3 Hgb (11.8-15.2) gm/dl Hct (35.5-45.6) % MCV (84-94) fl MCH (28-32) pg MCHC (32-34) % RDW (13.2-15.2) % Plt Count (140-440) K/mm3 Add Manual Diff Total Counted Seg Neuts % (Manual) (40.0-70.0) % Lymphocytes % (Manual) (13.4-35.0) % Monocytes % (Manual) (0.0-7.3) % Eosinophils % (Manual) (0.0-4.3) % Metamyelocytes % % Nucleated RBC % Seg Neutrophils # Man (1.8-7.7) K/mm3 Band Neutrophils # K/mm3 Lymphocytes # (Manual) (1.2-5.4) K/mm3 Abs React Lymphs (Man) K/mm3 Monocytes # (Manual) (0.0-0.8) K/mm3 Eosinophils # (Manual) (0.0-0.4) K/mm3 Basophils # (Manual) (0.0-0.1) K/mm3 Metamyelocytes # K/mm3 Myelocytes # K/mm3 Promyelocytes # K/mm3 Blast Cells # K/mm3 WBC Morphology Hypersegmented Neuts Hyposegmented Neuts Hypogranular Neuts Smudge Cells Toxic Granulation Toxic Vacuolation Dohle Bodies Pelger-Huet Anomaly Justus Rods Platelet Estimate Clumped Platelets Plt Clumps, EDTA Large Platelets Giant Platelets Platelet Satelliting Plt Morphology Comment RBC Morphology Dimorphic RBCs Polychromasia Hypochromasia Poikilocytosis Anisocytosis Microcytosis Macrocytosis Spherocytes Pappenheimer Bodies Sickle Cells Target Cells Tear Drop Cells Ovalocytes Helmet Cells Batres-Ryegate Bodies [place] Rings [place] Cells Bite Cells Crenated Cell Elliptocytes Acanthocytes (Spur) Rouleaux Hemoglobin C Crystals Schistocytes Malaria parasites Tommie Bodies Hem Pathologist Commnt PT (12.2-14.9) Sec. INR (0.87-1.13) APTT (24.2-36.6) Sec. D-Dimer (0-234) ng/mlDDU ABG pH (7.320-7.450) POC ABG pCO2 (32.0-48.0) mmHg POC ABG pO2 (83-108) mmHg POC ABG HCO3 POC ABG Base Excess ABG Hemoglobin (12.0-17.5) ABG Oxyhemoglobin (94-98) ABG Methemoglobin (0.0-1.5) ABG Sodium (136.0-145.0) mmol/L ABG Potassium (3.40-4.50) mmol/L ABG Chloride (98-107) mmol/L ABG Glucose (65-95) mg/dL Carboxyhemoglobin (0.5-1.5) FiO2 Sodium (137-145) mmol/L Potassium (3.6-5.0) mmol/L Chloride (98-107) mmol/L Carbon Dioxide (22-30) mmol/L Anion Gap mmol/L BUN (9-20) mg/dL Creatinine (0.8-1.3) mg/dL Estimated GFR ml/min BUN/Creatinine Ratio % Glucose (75-100) mg/dL Lactic Acid (0.7-2.0) mmol/L Calcium (8.4-10.2) mg/dL Total Bilirubin (0.1-1.2) mg/dL AST (5-40) units/L ALT (7-56) units/L Alkaline Phosphatase (35-129) units/L Lactate Dehydrogenase (91-180) units/L Total Creatine Kinase (55-170) units/L Troponin T (0.00-0.029) ng/mL C-Reactive Protein (0.00-1.30) mg/dL Total Protein (6.3-8.2) g/dL Albumin (3.9-5) g/dL Albumin/Globulin Ratio % TSH (0.270-4.200) mlU/mL Arterial Blood Glucose (65-95) mg/dL Arterial Blood Ionized Calcium (4.6-5.3) mg/dL Urine Color (Yellow) Urine Turbidity (Clear) Urine pH (5.0-7.0) Ur Specific Boaz (1.003-1.030) Urine Protein (Negative) mg/dL Urine Glucose (UA) (Negative) mg/dL Urine Ketones (Negative) mg/dL Urine Blood (Negative) Urine Nitrite (Negative) Urine Bilirubin (Negative) Urine Urobilinogen (<2.0) mg/dL Ur Leukocyte Esterase (Negative) Urine WBC (Auto) (0.0-6.0) /HPF Urine RBC (Auto) (0.0-6.0) /HPF U Epithel Cells (Auto) (0-13.0) /HPF Urine Mucus /HPF Urine Sperm (REGISTER CLERK) /HPF Salicylates < 0.3 L (2.8-20.0) mg/dL Acetaminophen 5.0 L (10.0-30.0) ug/mL Plasma/Serum Alcohol < 0.01 (0-0.07) % Blood Type Antibody Screen 09/07/20 09/07/20 09/07/20 Range/Units 14:00 14:00 14:26 WBC (4.5-11.0) K/mm3 RBC (3.65-5.03) M/mm3 Hgb (11.8-15.2) gm/dl Hct (35.5-45.6) % MCV (84-94) fl MCH (28-32) pg MCHC (32-34) % RDW (13.2-15.2) % Plt Count (140-440) K/mm3 Add Manual Diff Total Counted Seg Neuts % (Manual) (40.0-70.0) % Lymphocytes % (Manual) (13.4-35.0) % Monocytes % (Manual) (0.0-7.3) % Eosinophils % (Manual) (0.0-4.3) % Metamyelocytes % % Nucleated RBC % Seg Neutrophils # Man (1.8-7.7) K/mm3 Band Neutrophils # K/mm3 Lymphocytes # (Manual) (1.2-5.4) K/mm3 Abs React Lymphs (Man) K/mm3 Monocytes # (Manual) (0.0-0.8) K/mm3 Eosinophils # (Manual) (0.0-0.4) K/mm3 Basophils # (Manual) (0.0-0.1) K/mm3 Metamyelocytes # K/mm3 Myelocytes # K/mm3 Promyelocytes # K/mm3 Blast Cells # K/mm3 WBC Morphology Hypersegmented Neuts Hyposegmented Neuts Hypogranular Neuts Smudge Cells Toxic Granulation Toxic Vacuolation Dohle Bodies Pelger-Huet Anomaly Justus Rods Platelet Estimate Clumped Platelets Plt Clumps, EDTA Large Platelets Giant Platelets Platelet Satelliting Plt Morphology Comment RBC Morphology Dimorphic RBCs Polychromasia Hypochromasia Poikilocytosis Anisocytosis Microcytosis Macrocytosis Spherocytes Pappenheimer Bodies Sickle Cells Target Cells Tear Drop Cells Ovalocytes Helmet Cells Batres-Ryegate Bodies [place] Rings Manjit Cells Bite Cells Crenated Cell Elliptocytes Acanthocytes (Spur) Rouleaux Hemoglobin C Crystals Schistocytes Malaria parasites Tommie Bodies Hem Pathologist Commnt PT (12.2-14.9) Sec. INR (0.87-1.13) APTT (24.2-36.6) Sec. D-Dimer (0-234) ng/mlDDU ABG pH 7.037 L (7.320-7.450) POC ABG pCO2 92.4 H (32.0-48.0) mmHg POC ABG pO2 130.8 H (83-108) mmHg POC ABG HCO3 24.3 POC ABG Base Excess -7.7 ABG Hemoglobin 11.3 L (12.0-17.5) ABG Oxyhemoglobin 96.6 (94-98) ABG Methemoglobin 0.1 (0.0-1.5) ABG Sodium 141.6 (136.0-145.0) mmol/L ABG Potassium 4.3 (3.40-4.50) mmol/L ABG Chloride 107.0 (98-107) mmol/L ABG Glucose 95 (65-95) mg/dL Carboxyhemoglobin 0.7 (0.5-1.5) FiO2 100 Sodium 142 (137-145) mmol/L Potassium 4.5 (3.6-5.0) mmol/L Chloride 105.7 (98-107) mmol/L Carbon Dioxide 24 (22-30) mmol/L Anion Gap 17 mmol/L BUN 20 (9-20) mg/dL Creatinine 1.8 H (0.8-1.3) mg/dL Estimated GFR 46 ml/min BUN/Creatinine Ratio 11 % Glucose 98 (75-100) mg/dL Lactic Acid (0.7-2.0) mmol/L Calcium 9.1 (8.4-10.2) mg/dL Total Bilirubin 0.50 (0.1-1.2) mg/dL AST 310 H (5-40) units/L ALT 339 H (7-56) units/L Alkaline Phosphatase 93 (35-129) units/L Lactate Dehydrogenase (91-180) units/L Total Creatine Kinase (55-170) units/L Troponin T (0.00-0.029) ng/mL C-Reactive Protein (0.00-1.30) mg/dL Total Protein 7.3 (6.3-8.2) g/dL Albumin 3.6 L (3.9-5) g/dL Albumin/Globulin Ratio 1.0 % TSH (0.270-4.200) mlU/mL Arterial Blood Glucose 95 (65-95) mg/dL Arterial Blood Ionized Calcium 5.1 (4.6-5.3) mg/dL Urine Color (Yellow) Urine Turbidity (Clear) Urine pH (5.0-7.0) Ur Specific Boaz (1.003-1.030) Urine Protein (Negative) mg/dL Urine Glucose (UA) (Negative) mg/dL Urine Ketones (Negative) mg/dL Urine Blood (Negative) Urine Nitrite (Negative) Urine Bilirubin (Negative) Urine Urobilinogen (<2.0) mg/dL Ur Leukocyte Esterase (Negative) Urine WBC (Auto) (0.0-6.0) /HPF Urine RBC (Auto) (0.0-6.0) /HPF U Epithel Cells (Auto) (0-13.0) /HPF Urine Mucus /HPF Urine Sperm (REGISTER CLERK) /HPF Salicylates (2.8-20.0) mg/dL Acetaminophen (10.0-30.0) ug/mL Plasma/Serum Alcohol (0-0.07) % Blood Type O POSITIVE Antibody Screen Negative - EKG Data -: EKG Interpreted by [facility] EKG shows normal: sinus rhythm Rate: normal - EKG Data When compared to previous EKG there are: previous EKG unavailable 09/07/20 15:01 Sinus rhythm, 90 bpm, left axis deviation, left anterior fascicular block, QTC prolonged. Abnormal EKG. Not a STEMI. - Radiology Data Radiology results: pending, report reviewed, image reviewed XR chest 1V ap INDICATION / CLINICAL INFORMATION: Altered Mental Status. COMPARISON: None available. FINDINGS: SUPPORT DEVICES: Endotracheal tube terminates appropriately at the level of the clavicular heads. Enteric tube courses beneath the diaphragm. Side-port is beneath the GE junction.. HEART / MEDIASTINUM: Mild cardiomegaly. LUNGS / PLEURA: Bilateral airspace disease. No pneumothorax. ADDITIONAL FINDINGS: No significant additional findings. IMPRESSION: 1. Bilateral airspace disease which could be related to alveolar edema or infection. Signer Name: Johnny Malone MD Signed: 09/07/2020 1:21 PM Workstation Name: [id number] Critical Care Time: Yes Critical care time in (mins) excluding proc time.: 45 Critical care attestation.: If time is entered above; I have spent that time in minutes in the direct care of this critically ill patient, excluding procedure time. ED Disposition Is pt being admited?: Yes Does the pt Need Aspirin: No
[2020-09-07] MEDS ORDERED: dexAMETHasone 4 MG/ML VIAL IV ONE (13:22)
[2020-09-07] MEDS ORDERED: levETIRAcetam 1000 MG/NS 0.75% 1,000 MG/100 ML BAG IV ONE ×2 (13:33→13:49)
[2020-09-07 13:46] LABS: Bilirubin,Urine NEG (Negative); Blood,Urine NEG (Negative); Color,Urine Straw (Yellow); Mucus,Urine FEW /HPF; Sperm,Urine 3+ /HPF (NP); Urobilinogen,Urine < 2.0 mg/dL (<2.0)
[2020-09-07] MEDS: fentaNYL DRIP Premix 2,000 MCG/100 ML BAG IV SCH ×2 (13:55→20:47)
[2020-09-07 14:25] LABS: Hematocrit 32.5 % (35.5-45.6); Hemoglobin 10.2 gm/dl (11.8-15.2); Mean Corpuscular HGB Conc 31 % (32-34); Mean Corpuscular Volume 88 fl (84-94); Platelet Count 301 K/mm3 (140-440); Red Blood Count 3.71 M/mm3 (3.65-5.03); Red Cell Distribution Width 17.5 % (13.2-15.2)
[2020-09-07 14:35] LABS: INR 1.06 (0.87-1.13)
[2020-09-07 14:36] LABS: Partial Thromboplastin Time 33.8 Sec. (24.2-36.6)
[2020-09-07 14:48] LABS: C-Reactive Protein 1.1 mg/dL (0.00-1.30)
[2020-09-07 14:55] LABS: Total Cells Counted 100
[2020-09-07 14:56] LABS: Anisocytosis 1+; Giant Platelets Rare; Large Platelets Few; Platelet Estimate Consistent w Auto
[2020-09-07 15:01] LABS: Albumin 3.6 g/dL (3.9-5); Calcium 9.1 mg/dL (8.4-10.2)
[2020-09-07] MEDS ORDERED: cefTRIAXone/NS 2 GM/100 ML 2 GM/100 ML BAG IV ONE (15:04)
[2020-09-07] MEDS ORDERED: SODIUM CHLORIDE 0.9% 100 ML IVPB IV STA (15:04)
[2020-09-07] MEDS ORDERED: SODIUM CHLORIDE 0.9% 1000 ML 1,000 ML ONE (15:10)
[2020-09-07] MEDS ORDERED: AZITHROMYCIN/NS 500 MG/250 ML 500 MG/250 ML BAG IV ONE (15:34)
[2020-09-07] MEDS: fentaNYL 100 MCG/2 ML INJ IV PRN ×2 (16:20→19:26)
--- NOTE | 2020-09-07 16:44 | Cat Scan Report ---
CT head/brain wo con INDICATION: Altered Mental Status. TECHNIQUE: Routine CT head without contrast. All CT scans at this location are performed using CT dos e reduction for ALARA by means of automated exposure control. COMPARISON: None. FINDINGS: BRAIN / INTRACRANIAL CONTENTS: No acute hemorrhage, mass effect, midline shift, or hydrocephalus. No appreciable acute large territorial or lacunar infarct. No chronic infarct or focal atrophy. Normal b rain volume and ventricular/sulcal size for age. ORBITS: No significant abnormality of visualized orbits. SINUSES / MASTOIDS: No significant abnormality of visualized sinuses and mastoid air cells. ADDITIONAL FINDINGS: None. IMPRESSION: 1. No acute intracranial abnormality. Signer Name: Federico Valderrama MD Signed: 09/07/2020 4:40 PM Workstation Name: [id number]
[2020-09-07] MEDS ORDERED: MORPHINE 2 MG/1 ML INJ IV PRN (17:55)
[2020-09-07] MEDS ORDERED: SODIUM CHLORIDE 0.9% 1000 ML 1,000 ML IV SCH (18:00)
[2020-09-07] MEDS ORDERED: LORazepam 2 MG/ML VIAL IV ONE ×2 (18:06→19:09)
--- NOTE | 2020-09-07 18:07 | History and Physical Report ---
History of Present Illness Date of examination: 09/07/20 Date of admission: 09/07/20 17:07 Chief complaint: Cardio-pulmonary Arrest History of present illness: 65-year-old male brought into the emergency room today by EMS for cardiopulmonary arrest. Patient was said to be awaiting a Covid test when he was said to have passed out. CPR was started and also patient was defibrillated once. CPR was continued on the field by EMS and patient had a spontaneous return of circulation. Upon arrival in the emergency room patient had been receiving bag valve mask ventilation through a Dayron airway. He was tachycardic and was subsequently intubated in the emergency room. Most of the history was obtained from the ER staff as patient is already intubated. Work-up in the emergency room today chest x-ray reveals:Bilateral airspace disease which could be related to alveolar edema or infection. CT scan of the head was unremarkable. Patient could not had a CT angiogram because of his size. Patient is being admitted for cardiopulmonary arrest and also possible Covid pneumonia. Past History Past Medical History: other (Unobtainable) Past Surgical History: Other (Unobtainable) Social history: other (Unobtainable) Family history: other (Unobtainable) Medications and Allergies Allergies Allergy/AdvReac Type Severity Reaction Status Date / Time Unable to Assess Allergy Verified 09/07/20 13:43 Active Meds: Active Medications Dexamethasone (Dexamethasone 4 Mg/Ml Vial) 6 mg IV Q24HR [facility] Fentanyl (Fentanyl 100 Mcg/2 Ml Inj) 50 mcg IV Q10MIN PRN PRN Reason: ANALGESIA Hydrophilic Ointment (Lip Therapy Vaseline) 1 applic TP Q2HR PRN PRN Reason: Dry Lips Fentanyl Citrate (Fentanyl Drip Premix) 2,000 mcg in 100 mls @ 8.825 mls/hr IV TITR [facility]; Protocol Last Admin: 09/07/20 13:55 Dose: 1 mcg/kg/hr, 8.825 mls/hr Documented by: Sodium Chloride (Nacl 0.9% 1000 Ml) 1,000 mls @ 75 mls/hr IV DIRECT [facility] Ceftriaxone Sodium (Rocephin/Ns 2 Gm/100 Ml) 2 gm in 100 mls @ 200 mls/hr IV Q24H [facility]; Protocol Azithromycin (Zithromax/Ns) 500 mg in 250 mls @ 250 mls/hr IV Q24H [facility]; Protocol Morphine Sulfate (Morphine 2 Mg/1 Ml Inj) 2 mg IV Q4H PRN PRN Reason: Pain, Moderate (4-6) Multi-Ingred Cream/Lotion/Oil/Oint (Mineral Oil/Petrolatum, White Ophth Oint 3.5 Gm) 1 applic OU Q4HR PRN PRN Reason: Dry Eye(s) Ondansetron HCl (Ondansetron 4 Mg/2 Ml Inj) 4 mg IV Q8H PRN PRN Reason: Nausea And Vomiting Sodium Chloride (Sodium Chloride 0.9% 10 Ml Flush Syringe) 10 ml IV BID [facility] Sodium Chloride (Sodium Chloride 0.9% 10 Ml Flush Syringe) 10 ml IV PRN PRN PRN Reason: LINE FLUSH Review of Systems ROS unobtainable: due to endotracheal tube Exam - Constitutional Vitals: Temp Pulse Resp BP Pulse Ox 65 186/73 97 09/07/20 16:00 09/07/20 16:00 09/07/20 16:00 General appearance: Present: obese, other (Intubated and Sedated) - EENT Eyes: Present: PERRL, EOM intact. Absent: scleral icterus ENT: hearing intact, clear oral mucosa, dentition normal - Neck Neck: Present: supple, normal ROM - Respiratory Respiratory effort: normal Respiratory: bilateral: diminished - Cardiovascular Rhythm: regular Heart Sounds: Present: S1 & S2. Absent: gallop, systolic murmur, diastolic murmur, rub, click - Extremities Extremities: no ischemia, pulses intact, pulses symmetrical, No edema, normal temperature, normal color, Full ROM Peripheral Pulses: within normal limits - Abdominal General gastrointestinal: Present: soft, non-tender, non-distended, normal bowel sounds. Absent: mass - Integumentary Integumentary: Present: clear, warm, dry. Absent: rash - Musculoskeletal Musculoskeletal: strength equal bilaterally - Psychiatric Psychiatric: cooperative - Neurologic Neurologic: no focal deficits, other (Intubated and Sedated.) HEART Score - HEART Score Troponin: Troponin T 0.076 ng/mL (0.00-0.029) H 09/07/20 14:00 Results - Labs CBC & Chem 7: 09/07/20 14:00 09/07/20 14:00 Labs: Abnormal lab results 09/07/20 09/07/2009/07/21 Range/Units 13:08 14:00 14:00 WBC 15.7 H (4.5-11.0) K/mm3 Hgb 10.2 L (11.8-15.2) gm/dl Hct 32.5 L (35.5-45.6) % MCHC 31 L (32-34) % RDW 17.5 H (13.2-15.2) % Seg Neuts % (Manual) 72.0 H (40.0-70.0) % Monocytes % (Manual) 8.0 H (0.0-7.3) % Seg Neutrophils # Man 11.3 H (1.8-7.7) K/mm3 Monocytes # (Manual) 1.3 H (0.0-0.8) K/mm3 D-Dimer 8315.85 H (0-234) ng/mlDDU ABG pH (7.320-7.450) POC ABG pCO2 (32.0-48.0) mmHg POC ABG pO2 (83-108) mmHg ABG Hemoglobin (12.0-17.5) Creatinine (0.8-1.3) mg/dL Lactic Acid (0.7-2.0) mmol/L Ferritin (30.0-300.0) ng/mL AST (5-40) units/L ALT (7-56) units/L Lactate Dehydrogenase (91-180) units/L Total Creatine Kinase (55-170) units/L Troponin T (0.00-0.029) ng/mL Albumin (3.9-5) g/dL Urine pH 8.0 H (5.0-7.0) Salicylates (2.8-20.0) mg/dL Acetaminophen (10.0-30.0) ug/mL 09/07/20 09/07/20 09/07/20 Range/Units 14:00 14:00 14:00 WBC (4.5-11.0) K/mm3 Hgb (11.8-15.2) gm/dl Hct (35.5-45.6) % MCHC (32-34) % RDW (13.2-15.2) % Seg Neuts % (Manual) (40.0-70.0) % Monocytes % (Manual) (0.0-7.3) % Seg Neutrophils # Man (1.8-7.7) K/mm3 Monocytes # (Manual) (0.0-0.8) K/mm3 D-Dimer (0-234) ng/mlDDU ABG pH (7.320-7.450) POC ABG pCO2 (32.0-48.0) mmHg POC ABG pO2 (83-108) mmHg ABG Hemoglobin (12.0-17.5) Creatinine (0.8-1.3) mg/dL Lactic Acid 4.30 H* (0.7-2.0) mmol/L Ferritin > 2000.0 H (30.0-300.0) ng/mL AST (5-40) units/L ALT (7-56) units/L Lactate Dehydrogenase 882 H (91-180) units/L Total Creatine Kinase 477 H (55-170) units/L Troponin T 0.076 H (0.00-0.029) ng/mL Albumin (3.9-5) g/dL Urine pH (5.0-7.0) Salicylates (2.8-20.0) mg/dL Acetaminophen (10.0-30.0) ug/mL 09/07/20 09/07/20 09/07/20 Range/Units 14:00 14:00 14:00 WBC (4.5-11.0) K/mm3 Hgb (11.8-15.2) gm/dl Hct (35.5-45.6) % MCHC (32-34) % RDW (13.2-15.2) % Seg Neuts % (Manual) (40.0-70.0) % Monocytes % (Manual) (0.0-7.3) % Seg Neutrophils # Man (1.8-7.7) K/mm3 Monocytes # (Manual) (0.0-0.8) K/mm3 D-Dimer (0-234) ng/mlDDU ABG pH (7.320-7.450) POC ABG pCO2 (32.0-48.0) mmHg POC ABG pO2 (83-108) mmHg ABG Hemoglobin (12.0-17.5) Creatinine 1.8 H (0.8-1.3) mg/dL Lactic Acid (0.7-2.0) mmol/L Ferritin (30.0-300.0) ng/mL AST 310 H (5-40) units/L ALT 339 H (7-56) units/L Lactate Dehydrogenase (91-180) units/L Total Creatine Kinase (55-170) units/L Troponin T (0.00-0.029) ng/mL Albumin 3.6 L (3.9-5) g/dL Urine pH (5.0-7.0) Salicylates < 0.3 L (2.8-20.0) mg/dL Acetaminophen 5.0 L (10.0-30.0) ug/mL 09/07/20 Range/Units 14:26 WBC (4.5-11.0) K/mm3 Hgb (11.8-15.2) gm/dl Hct (35.5-45.6) % MCHC (32-34) % RDW (13.2-15.2) % Seg Neuts % (Manual) (40.0-70.0) % Monocytes % (Manual) (0.0-7.3) % Seg Neutrophils # Man (1.8-7.7) K/mm3 Monocytes # (Manual) (0.0-0.8) K/mm3 D-Dimer (0-234) ng/mlDDU ABG pH 7.037 L (7.320-7.450) POC ABG pCO2 92.4 H (32.0-48.0) mmHg POC ABG pO2 130.8 H (83-108) mmHg ABG Hemoglobin 11.3 L (12.0-17.5) Creatinine (0.8-1.3) mg/dL Lactic Acid (0.7-2.0) mmol/L Ferritin (30.0-300.0) ng/mL AST (5-40) units/L ALT (7-56) units/L Lactate Dehydrogenase (91-180) units/L Total Creatine Kinase (55-170) units/L Troponin T (0.00-0.029) ng/mL Albumin (3.9-5) g/dL Urine pH (5.0-7.0) Salicylates (2.8-20.0) mg/dL Acetaminophen (10.0-30.0) ug/mL Assessment and Plan - Patient Problems (1) Cardiac arrest Current Visit: Yes Status: Acute Plan to address problem: Patient currently intubated and sedated. Admitted into the intensive care unit. [employer] has been consulted for evaluation. (2) Respiratory acidosis Current Visit: Yes Status: Acute Plan to address problem: Secondary to the underlying pneumonia. Will monitor ABG. (3) Suspected 2019 novel coronavirus infection Current Visit: Yes Status: Acute Plan to address problem: Patient placed on isolation precautions. He has been started on empiric IV antibiotics. Consult placed to infectious disease for evaluation. We will await COVID-19 testing. (4) Transaminitis Current Visit: Yes Status: Acute Plan to address problem: Possibly secondary to COVID-19 pneumonia. We will monitor LFTs. We will also check hepatitis profile. We also place consult to gastroenterology for evaluation. (5) Morbid obesity Current Visit: Yes Status: Acute Plan to address problem: We will get dietary consult. (6) DVT prophylaxis Current Visit: Yes Status: Acute Plan to address problem: Patient placed on subcutaneous Lovenox. (7) Full code status Current Visit: Yes Status: Acute Plan to address problem: Patient is a full code. We will attempt to get further information from family. Critical care time spent is greater than 60 minutes.
[2020-09-07] MEDS ORDERED: hydrALAZINE 20 MG/1 ML INJ IV ONE (18:23)
[2020-09-07 19:43] LABS: Hepatitis B Surface Antigen Non-Reactive (Negative); Hepatitis C Virus Antibody Non-Reactive (NonReactive)
[2020-09-08] MEDS ORDERED: LORazepam 2 MG/ML VIAL ONE (00:09)
[2020-09-08] MEDS: LORazepam 2 MG/ML VIAL IV PRN ×3 (00:17→18:05)
[2020-09-08] MEDS ORDERED: SODIUM CHLORIDE 0.9% 1000 ML 1,000 ML IV ONE (00:33)
[2020-09-08] MEDS: fentaNYL DRIP Premix 2,000 MCG/100 ML BAG IV SCH (00:36)
[2020-09-08] MEDS ORDERED: SODIUM CHLORIDE 0.9% 1000 ML 1,000 ML IV SCH (00:45)
[2020-09-08] MEDS ORDERED: ACETAMINOPHEN 650 MG RECT SUPP PR PRN (01:03)
[2020-09-08] MEDS: NORepinephrine/NS 4 MG-250 ML 4 MG/250 ML BAG IV SCH ×4 (01:28→11:45)
--- NOTE | 2020-09-08 01:56 | XRay Report ---
CHEST 1 VIEW 09/08/2020 1:05 AM INDICATION / CLINICAL INFORMATION: follow up respiratory failure. COMPARISON: 09/07/2020 FINDINGS: SUPPORT DEVICES: Unchanged. HEART / MEDIASTINUM: Unchanged LUNGS / PLEURA: There are low lung volumes bilaterally. There is elevation of the right hemidiaphragm . Pulmonary opacities persist. No pneumothorax. ADDITIONAL FINDINGS: No significant additional findings. IMPRESSION: 1. There are low lung volumes bilaterally. Bilateral pulmonary opacities appear unchanged. Signer Name: Yunior Watkins MD Signed: 09/08/2020 1:52 AM Workstation Name: [id number]
[2020-09-08] MEDS ORDERED: NORepinephrine/NS 4 MG-250 ML 4 MG/250 ML BAG IV SCH (02:00)
--- NOTE | 2020-09-08 04:02 | Procedure Note ---
Date of procedure: 09/08/20 Pre-op diagnosis: Hypotension, cardiac arrest Post-op diagnosis: same Procedure: Patient is a 65-year-old male that is admitted to the hospitalist service and in the ICU. Patient is hypotensive and on Levophed and will need a central line. The hospitalist service is asked that I place a central line. Procedure note: Central Venous Line Placement: Indication: Hemodynamic monitoring/Intravenous access A time-out was completed verifying correct patient, procedure, site, positioning. The patient was placed in a dependent position appropriate for central line placement based on the vein to be cannulated. The patients right groin was prepped and draped in sterile fashion. An ultrasound was used in a sterile fashion to identify vasculature. A triple lumen catheter was introduced into the the rt common femoral vein using the Seldinger technique and under ultrasound guidance. The catheter was threaded smoothly over the guide wire and appropriate blood return was obtained. Each lumen of the catheter was evacuated of air and flushed with sterile saline. The catheter was then sutured in place to the skin and a sterile dressing applied. Perfusion to the extremity distal to the point of catheter insertion was checked and found to be adequate. Estimated Blood Loss: minimal The patient tolerated the procedure well and there were no complications. Care will be transferred back to the primary team. Estimated blood loss: minimal Pathology: none Condition: critical Disposition: ICU
[2020-09-08] MEDS: LORazepam 100 MG in SODIUM CHLORIDE 0.9% 50 ML, EMPTY BAG 0 ML IV SCH (04:38)
[2020-09-08] MEDS ORDERED: IBUPROFEN 400 MG TAB PO PRN (05:10)
[2020-09-08] MEDS ORDERED: VASOPRESSIN 20 UNIT in SODIUM CHLORIDE 0.9% 100 ML IV SCH (06:00)
--- NOTE | 2020-09-08 06:15 | XRay Report ---
ABDOMEN 1 VIEW 09/08/2020 5:07 AM INDICATION / CLINICAL INFORMATION: OG tube placement. COMPARISON: None available. FINDINGS: TUBES / LINES: Nasogastric tube tip is in the stomach. BOWEL GAS PATTERN: No significant abnormality. FREE AIR / EXTRALUMINAL GAS: None. ADDITIONAL FINDINGS: No significant additional findings. IMPRESSION: 1. Esophagogastric tube in expected position. Signer Name: Yunior Watkins MD Signed: 09/08/2020 6:11 AM Workstation Name: [email or web address]
[2020-09-08] MEDS ORDERED: HEPARIN 10,000 UNIT/1 ML VIAL ONE (10:00)
[2020-09-08] MEDS ORDERED: SODIUM CHLORIDE 0.9% P/F 10 ML VIAL ONE (10:00)
[2020-09-08] MEDS: dexAMETHasone 4 MG/ML VIAL IV SCH (10:28)
[2020-09-08 11:23] LABS: Hemoglobin 10.1 gm/dl (11.8-15.2); Mean Corpuscular HGB Conc 32 % (32-34); Mean Corpuscular Volume 87 fl (84-94); Platelet Count 178 K/mm3 (140-440); Red Blood Count 3.67 M/mm3 (3.65-5.03); Red Cell Distribution Width 18.2 % (13.2-15.2)
[2020-09-08 11:40] LABS: Calcium 7.7 mg/dL (8.4-10.2)
--- NOTE | 2020-09-08 11:43 | Consultation ---
History of Present Illness Consult date: 09/08/20 Requesting physician: DEE DELGADO Reason for consult: other (Acute respiratory failure, Cardiac Arrest) History of present illness: 65 y/o male brought in yesterday by EMS with Belly. Intubated in the ED secondary to GCS of 3. At somepoint last night was started on ativan drip for what was thought to be seizures but likely myoclonic jerking. Patient is sedated on ativan and on isolation for possible COVID 19. Unable to obtain any further history. He is also on levophed at 16. Past History Past Medical History: other (Unobtainable) Past Surgical History: Other (Unobtainable) Social history: other (Unobtainable) Family history: other (Unobtainable) Medications and Allergies Allergies Allergy/AdvReac Type Severity Reaction Status Date / Time Unable to Assess Allergy Verified 09/07/20 13:43 Active Meds: Active Medications Acetaminophen (Acetaminophen 650 Mg Rect Supp) 650 mg KS Q6H PRN PRN Reason: Pain, Mild (1-3) Last Admin: 09/08/20 01:07 Dose: 650 mg Documented by: Dexamethasone (Dexamethasone 4 Mg/Ml Vial) 6 mg IV Q24HR T[facility]OR Last Admin: 09/08/20 10:28 Dose: 6 mg Documented by: Fentanyl (Fentanyl 100 Mcg/2 Ml Inj) 50 mcg IV Q10MIN PRN PRN Reason: ANALGESIA Last Admin: 09/07/20 19:26 Dose: 50 mcg Documented by: Hydrophilic Ointment (Lip Therapy Vaseline) 1 applic TP Q2HR PRN PRN Reason: Dry Lips Ceftriaxone Sodium (Rocephin/Ns 2 Gm/100 Ml) 2 gm in 100 mls @ 200 mls/hr IV Q24H [facility]; Protocol Azithromycin (Zithromax/Ns) 500 mg in 250 mls @ 250 mls/hr IV Q24H [facility]; Protocol Sodium Chloride (Nacl 0.9% 1000 Ml) 1,000 mls @ 110 mls/hr IV DIRECT T[facility]OR Last Admin: 09/08/20 06:25 Dose: 110 mls/hr Documented by: Norepinephrine (Levophed Drip 4 Mg/Ns 250 Ml) 4 mg in 250 mls @ 7.5 mls/hr IV TITR T[facility]OR; Protocol Last Titration: 09/08/20 08:30 Dose: 28 mcg/min, 105 mls/hr Documented by: Lorazepam 100 mg/ Sodium Chloride/ Miscellaneous Information 100 mls @ 1 mls/hr IV TITR TAYLOR; Protocol Last Titration: 09/08/20 10:29 Dose: 1 mg/hr, 1 mls/hr Documented by: Vasopressin 20 unit/ Sodium (Chloride) 101 mls @ 9.09 mls/hr IV TITR TAYLOR; Protocol Last Titration: 09/08/20 08:43 Dose: 0 units/min, 0 mls/hr Documented by: Ibuprofen (Ibuprofen 400 Mg Tab) 400 mg PO Q6H PRN PRN Reason: Pain, Mild (1-3) Lorazepam (Lorazepam 2 Mg/Ml Vial) 2 mg IV Q4H PRN PRN Reason: Seizures Last Admin: 09/08/20 05:21 Dose: 2 mg Documented by: Lorazepam (Lorazepam 2 Mg/Ml Vial) 2 mg IV Q10MIN PRN PRN Reason: Agitation Morphine Sulfate (Morphine 2 Mg/1 Ml Inj) 2 mg IV Q4H PRN PRN Reason: Pain, Moderate (4-6) Multi-Ingred Cream/Lotion/Oil/Oint (Mineral Oil/Petrolatum, White Ophth Oint 3.5 Gm) 1 applic OU Q4HR PRN PRN Reason: Dry Eye(s) Ondansetron HCl (Ondansetron 4 Mg/2 Ml Inj) 4 mg IV Q8H PRN PRN Reason: Nausea And Vomiting Sodium Chloride (Sodium Chloride 0.9% 10 Ml Flush Syringe) 10 ml IV BID [facility] Last Admin: 09/08/20 10:30 Dose: 10 ml Documented by: Sodium Chloride (Sodium Chloride 0.9% 10 Ml Flush Syringe) 10 ml IV PRN PRN PRN Reason: LINE FLUSH Review of Systems ROS unobtainable: due to endotracheal tube, due to mental status Physical Examination Vital signs: Vital Signs Pulse BP Pulse Ox 82 197/91 92 09/07/20 13:00 09/07/20 13:00 09/07/20 13:00 General appearance: comatose, other (morbidly obese) Eyes: non-icteric ENT: other (orally intubated and sedated) Neck: supple Effort: normal Ascultation: Bilateral: diminished breath sounds Percussion: Bilateral: not dull Cardiovascular: other (bradycardic) Gastrointestinal: soft Results - Laboratory Findings CBC and BMP: 09/08/20 Unknown 09/08/20 04:00 ABG ABG pH 7.088 (7.320-7.450) L 09/08/20 05:25 POC ABG pCO2 69.1 mmHg (32.0-48.0) H 09/08/20 05:25 POC ABG pO2 35.2 mmHg (83-108) L 09/08/20 05:25 POC ABG HCO3 20.4 09/08/20 05:25 PT/INR, D-dimer PT 13.7 Sec. (12.2-14.9) 09/07/20 14:00 INR 1.06 (0.87-1.13) 09/07/20 14:00 D-Dimer 8315.85 ng/mlDDU (0-234) H 09/07/20 14:00 Abnormal lab findings: Abnormal Labs 09/07/20 09/07/20 09/07/20 13:08 14:00 14:00 WBC 15.7 H Hgb 10.2 L Hct 32.5 L MCHC 31 L RDW 17.5 H Seg Neuts % (Manual) 72.0 H Monocytes % (Manual) 8.0 H Seg Neutrophils # Man 11.3 H Monocytes # (Manual) 1.3 H D-Dimer 8315.85 H ABG pH POC ABG pCO2 POC ABG pO2 ABG Hemoglobin ABG Oxyhemoglobin ABG Potassium ABG Chloride Carboxyhemoglobin Creatinine Lactic Acid Ferritin AST ALT Lactate Dehydrogenase Total Creatine Kinase Troponin T Albumin Arterial Blood Ionized Calcium Urine pH 8.0 H Salicylates Acetaminophen 09/07/20 09/07/20 09/07/20 14:00 14:00 14:00 WBC Hgb Hct MCHC RDW Seg Neuts % (Manual) Monocytes % (Manual) Seg Neutrophils # Man Monocytes # (Manual) D-Dimer ABG pH POC ABG pCO2 POC ABG pO2 ABG Hemoglobin ABG Oxyhemoglobin ABG Potassium ABG Chloride Carboxyhemoglobin Creatinine Lactic Acid 4.30 H* Ferritin > 2000.0 H AST ALT Lactate Dehydrogenase 882 H Total Creatine Kinase 477 H Troponin T 0.076 H Albumin Arterial Blood Ionized Calcium Urine pH Salicylates Acetaminophen 09/07/20 09/07/20 09/07/20 14:00 14:00 14:00 WBC Hgb Hct MCHC RDW Seg Neuts % (Manual) Monocytes % (Manual) Seg Neutrophils # Man Monocytes # (Manual) D-Dimer ABG pH POC ABG pCO2 POC ABG pO2 ABG Hemoglobin ABG Oxyhemoglobin ABG Potassium ABG Chloride Carboxyhemoglobin Creatinine 1.8 H Lactic Acid Ferritin AST 310 H ALT 339 H Lactate Dehydrogenase Total Creatine Kinase Troponin T Albumin 3.6 L Arterial Blood Ionized Calcium Urine pH Salicylates < 0.3 L Acetaminophen 5.0 L 09/07/20 09/08/20 09/08/20 14:26 04:17 05:25 WBC Hgb Hct MCHC RDW Seg Neuts % (Manual) Monocytes % (Manual) Seg Neutrophils # Man Monocytes # (Manual) D-Dimer ABG pH 7.037 L 7.095 L 7.088 L POC ABG pCO2 92.4 H 68.0 H 69.1 H POC ABG pO2 130.8 H 43.5 L 35.2 L ABG Hemoglobin 11.3 L 10.6 L 10.9 L ABG Oxyhemoglobin 70.8 L 57.1 L ABG Potassium 7.0 H 7.0 H ABG Chloride 108.0 H 108.0 H Carboxyhemoglobin 0.3 L 0.4 L Creatinine Lactic Acid Ferritin AST ALT Lactate Dehydrogenase Total Creatine Kinase Troponin T Albumin Arterial Blood Ionized Calcium 4.5 L 4.4 L Urine pH Salicylates Acetaminophen 09/08/20 Unknown WBC 18.4 H Hgb 10.1 L Hct 32.0 L MCHC RDW 18.2 H Seg Neuts % (Manual) Monocytes % (Manual) Seg Neutrophils # Man Monocytes # (Manual) D-Dimer ABG pH POC ABG pCO2 POC ABG pO2 ABG Hemoglobin ABG Oxyhemoglobin ABG Potassium ABG Chloride Carboxyhemoglobin Creatinine Lactic Acid Ferritin AST ALT Lactate Dehydrogenase Total Creatine Kinase Troponin T Albumin Arterial Blood Ionized Calcium Urine pH Salicylates Acetaminophen - Diagnostic Findings Chest x-ray: image reviewed Assessment and Plan 65 y/o male with out of hospital cardiac arrest now sedated on ativan for possible seizures. 1. Stop sedation 2. EEG 3. Needs neuro consult. 4. Art line placement 5. Stat repeat of labs, if renal function is truly that bad, will need renal consult. 6. Follow up COVID testing 7. Likely needs echo 8. Will place on bicarb drip. CCT 31 minutes.
[2020-09-08 11:44] LABS: Albumin 3.5 g/dL (3.9-5); Bilirubin,Direct 0.5 mg/dL (0-0.2)
[2020-09-08 11:45] LABS: INR 1.83 (0.87-1.13)
[2020-09-08] MEDS ORDERED: SODIUM BICARB 8.4% 50 MEQ/50 ML SYRINGE IV ONE (11:56)
[2020-09-08 12:16] LABS: Anisocytosis 1+; Band Neutrophils # (Manual) 1.7 K/mm3; Platelet Estimate Consistent w Auto; Total Cells Counted 100
[2020-09-08] MEDS: SODIUM BICARBONATE 150 MEQ in DEXTROSE 5% IN WATER 1,000 ML IV SCH (12:33)
--- NOTE | 2020-09-08 13:06 | Consultation ---
History of Present Illness - Reason for Consult Consult date: 09/08/20 arrest, resp failure, r/o COVID Requesting physician: JAZMÍN GASTELUM - History of Present Illness 65 years old male with unknown medical history, morbidly obese, brought to the ED by EMS on 09/07/2020 secondary to passing out. It seems like patient was waiting for his COVID-19 test result. There are no details about his recent medical history. Patient is currently intubated unable to provide any history. Apparently, patient received CPR and then defibrillated by EMS. Patient was unable to be intubated in the field, placed in a [place] airway. On arrival to the ED, temperature 103.8, HR 94, O2 92, BP 187/91. Initial WBC 15.7. Hemoglobin 10.2. Platelets 301. Lactate 4.3. Creatinine 1. 8. D-dimer 8315. Ferritin> 2000. LDH 882. AST 310, ALT 339. Urinalysis negative. Rapid HIV test negative. Viral hepatitis panel negative. At the ED patient was comatose with GCS of 3, noted myoclonic jerking. Patient was intubated in the ED. Chest x- ray shows bilateral airspace disease. CT of the head was unremarkable. Review of Systems: Unable to obtain, patient intubated Past History Past Medical History: other (Unobtainable) Past Surgical History: Other (Unobtainable) Social history: other (Unobtainable) Family history: other (Unobtainable) Medications and Allergies Allergies Allergy/AdvReac Type Severity Reaction Status Date / Time Unable to Assess Allergy Verified 09/07/20 13:43 Active Meds: Active Medications Acetaminophen (Acetaminophen 650 Mg Rect Supp) 650 mg [place] Q6H PRN PRN Reason: Pain, Mild (1-3) Last Admin: 09/08/20 01:07 Dose: 650 mg Documented by: Dexamethasone (Dexamethasone 4 Mg/Ml Vial) 6 mg IV Q24HR TAYLOR Last Admin: 09/08/20 10:28 Dose: 6 mg Documented by: Fentanyl (Fentanyl 100 Mcg/2 Ml Inj) 50 mcg IV Q10MIN PRN PRN Reason: ANALGESIA Last Admin: 09/07/20 19:26 Dose: 50 mcg Documented by: Hydrophilic Ointment (Lip Therapy Vaseline) 1 applic TP Q2HR PRN PRN Reason: Dry Lips Ceftriaxone Sodium (Rocephin/Ns 2 Gm/100 Ml) 2 gm in 100 mls @ 200 mls/hr IV Q24H TAYLOR; Protocol Azithromycin (Zithromax/Ns) 500 mg in 250 mls @ 250 mls/hr IV Q24H TAYLOR; Protocol Sodium Chloride (Nacl 0.9% 1000 Ml) 1,000 mls @ 110 mls/hr IV DIRECT TAYLOR Last Admin: 09/08/20 06:25 Dose: 110 mls/hr Documented by: Norepinephrine (Levophed Drip 4 Mg/Ns 250 Ml) 4 mg in 250 mls @ 7.5 mls/hr IV TITR TAYLOR; Protocol Last Titration: 09/08/20 08:30 Dose: 28 mcg/min, 105 mls/hr Documented by: Lorazepam 100 mg/ Sodium Chloride/ Miscellaneous Information 100 mls @ 1 mls/hr IV TITR TAYLOR; Protocol Last Titration: 09/08/20 12:10 Dose: 0 mg/hr, 0 mls/hr Documented by: Vasopressin 20 unit/ Sodium (Chloride) 101 mls @ 9.09 mls/hr IV TITR TAYLOR; Prot ocol Last Titration: 09/08/20 08:43 Dose: 0 units/min, 0 mls/hr Documented by: Sodium Bicarbonate 150 meq/ (Dextrose) 1,150 mls @ 75 mls/hr IV DIRECT TAYLOR Last Admin: 09/08/20 12:33 Dose: 75 mls/hr Documented by: Ibuprofen (Ibuprofen 400 Mg Tab) 400 mg PO Q6H PRN PRN Reason: Pain, Mild (1-3) Lorazepam (Lorazepam 2 Mg/Ml Vial) 2 mg IV Q4H PRN PRN Reason: Seizures Last Admin: 09/08/20 05:21 Dose: 2 mg Documented by: Lorazepam (Lorazepam 2 Mg/Ml Vial) 2 mg IV Q10MIN PRN PRN Reason: Agitation Morphine Sulfate (Morphine 2 Mg/1 Ml Inj) 2 mg IV Q4H PRN PRN Reason: Pain, Moderate (4-6) Multi-Ingred Cream/Lotion/Oil/Oint (Mineral Oil/Petrolatum, White Ophth Oint 3.5 Gm) 1 applic OU Q4HR PRN PRN Reason: Dry Eye(s) Ondansetron HCl (Ondansetron 4 Mg/2 Ml Inj) 4 mg IV Q8H PRN PRN Reason: Nausea And Vomiting Sodium Chloride (Sodium Chloride 0.9% 10 Ml Flush Syringe) 10 ml IV BID TAYLOR Last Admin: 09/08/20 10:30 Dose: 10 ml Documented by: Sodium Chloride (Sodium Chloride 0.9% 10 Ml Flush Syringe) 10 ml IV PRN PRN PRN Reason: LINE FLUSH Physical Examination - Physical Exam Narrative exam: General appearance: Unresponsive, intubated Eyes: anicteric sclerae, moist conjunctivae; no lid-lag; pupils with poor response HENT: Normocephalic, Atraumatic; normal external ears, nares open, oropharynx limited endotracheal tube in place Neck: supple, tracheal midline, no JVD Lungs: Diminished breath sound bilaterally CV: Tachycardic Abdomen: Soft obese Extremities: no edema, no cyanosis Skin: No rash. Psych: Unresponsive Neuro: Unresponsive Mae in place Right femoral TLC in place - Constitutional Vitals: Vital Signs Temp Pulse Resp BP Pulse Ox 99.2 F 56 L 30 H 137/51 100 09/08/20 12:00 09/08/20 13:00 09/08/20 13:00 09/08/20 13:00 09/08/20 13:00 Temperature -Last 24 Hours Temperature 99.2 F Temperature 99.8 F Temperature 104.8 F Temperature 101.3 F Temperature 103.8 F Results - Labs CBC & Chem 7: 09/08/20 Unknown 09/08/20 12:02 Labs: Abnormal lab results 09/07/20 09/07/20 09/07/20 Range/Units 13:08 14:00 14:00 WBC 15.7 H (4.5-11.0) K/mm3 Hgb 10.2 L (11.8-15.2) gm/dl Hct 32.5 L (35.5-45.6) % MCHC 31 L (32-34) % RDW 17.5 H (13.2-15.2) % Seg Neuts % (Manual) 72.0 H (40.0-70.0) % Lymphocytes % (Manual) (13.4-35.0) % Monocytes % (Manual) 8.0 H (0.0-7.3) % Nucleated RBC % (0.0-0.9) % Seg Neutrophils # Man 11.3 H (1.8-7.7) K/mm3 Lymphocytes # (Manual) (1.2-5.4) K/mm3 Monocytes # (Manual) 1.3 H (0.0-0.8) K/mm3 PT (12.2-14.9) Sec. INR (0.87-1.13) D-Dimer 8315.85 H (0-234) ng/mlDDU ABG pH (7.320-7.450) POC ABG pCO2 (32.0-48.0) mmHg POC ABG pO2 (83-108) mmHg ABG Hemoglobin (12.0-17.5) ABG Oxyhemoglobin (94-98) ABG Potassium (3.40-4.50) mmol/L ABG Chloride (98-107) mmol/L Carboxyhemoglobin (0.5-1.5) Potassium (3.6-5.0) mmol/L Carbon Dioxide (22-30) mmol/L BUN (9-20) mg/dL Creatinine (0.8-1.3) mg/dL Lactic Acid (0.7-2.0) mmol/L Calcium (8.4-10.2) mg/dL Phosphorus (2.5-4.5) mg/dL Ferritin (30.0-300.0) ng/mL Direct Bilirubin (0-0.2) mg/dL AST (5-40) units/L ALT (7-56) units/L Lactate Dehydrogenase (91-180) units/L Total Creatine Kinase (55-170) units/L Troponin T (0.00-0.029) ng/mL Albumin (3.9-5) g/dL Arterial Blood Ionized Calcium (4.6-5.3) mg/dL Urine pH 8.0 H (5.0-7.0) Salicylates (2.8-20.0) mg/dL Acetaminophen (10.0-30.0) ug/mL 09/07/20 09/07/20 09/07/20 Range/Units 14:00 14:00 14:00 WBC (4.5-11.0) K/mm3 Hgb (11.8-15.2) gm/dl Hct (35.5-45.6) % MCHC (32-34) % RDW (13.2-15.2) % Seg Neuts % (Manual) (40.0-70.0) % Lymphocytes % (Manual) (13.4-35.0) % Monocytes % (Manual) (0.0-7.3) % Nucleated RBC % (0.0-0.9) % Seg Neutrophils # Man (1.8-7.7) K/mm3 Lymphocytes # (Manual) (1.2-5.4) K/mm3 Monocytes # (Manual) (0.0-0.8) K/mm3 PT (12.2-14.9) Sec. INR (0.87-1.13) D-Dimer (0-234) ng/mlDDU ABG pH (7.320-7.450) POC ABG pCO2 (32.0-48.0) mmHg POC ABG pO2 (83-108) mmHg ABG Hemoglobin (12.0-17.5) ABG Oxyhemoglobin (94-98) ABG Potassium (3.40-4.50) mmol/L ABG Chloride (98-107) mmol/L Carboxyhemoglobin (0.5-1.5) Potassium (3.6-5.0) mmol/L Carbon Dioxide (22-30) mmol/L BUN (9-20) mg/dL Creatinine (0.8-1.3) mg/dL Lactic Acid 4.30 H* (0.7-2.0) mmol/L Calcium (8.4-10.2) mg/dL Phosphorus (2.5-4.5) mg/dL Ferritin > 2000.0 H (30.0-300.0) ng/mL Direct Bilirubin (0-0.2) mg/dL AST (5-40) units/L ALT (7-56) units/L Lactate Dehydrogenase 882 H (91-180) units/L Total Creatine Kinase 477 H (55-170) units/L Troponin T 0.076 H (0.00-0.029) ng/mL Albumin (3.9-5) g/dL Arterial Blood Ionized Calcium (4.6-5.3) mg/dL Urine pH (5.0-7.0) Salicylates (2.8-20.0) mg/dL Acetaminophen (10.0-30.0) ug/mL 09/07/20 09/07/20 09/07/20 Range/Units 14:00 14:00 14:00 WBC (4.5-11.0) K/mm3 Hgb (11.8-15.2) gm/dl Hct (35.5-45.6) % MCHC (32-34) % RDW (13.2-15.2) % Seg Neuts % (Manual) (40.0-70.0) % Lymphocytes % (Manual) (13.4-35.0) % Monocytes % (Manual) (0.0-7.3) % Nucleated RBC % (0.0-0.9) % Seg Neutrophils # Man (1.8-7.7) K/mm3 Lymphocytes # (Manual) (1.2-5.4) K/mm3 Monocytes # (Manual) (0.0-0.8) K/mm3 PT (12.2-14.9) Sec. INR (0.87-1.13) D-Dimer (0-234) ng/mlDDU ABG pH (7.320-7.450) POC ABG pCO2 (32.0-48.0) mmHg POC ABG pO2 (83-108) mmHg ABG Hemoglobin (12.0-17.5) ABG Oxyhemoglobin (94-98) ABG Potassium (3.40-4.50) mmol/L ABG Chloride (98-107) mmol/L Carboxyhemoglobin (0.5-1.5) Potassium (3.6-5.0) mmol/L Carbon Dioxide (22-30) mmol/L BUN (9-20) mg/dL Creatinine 1.8 H (0.8-1.3) mg/dL Lactic Acid (0.7-2.0) mmol/L Calcium (8.4-10.2) mg/dL Phosphorus (2.5-4.5) mg/dL Ferritin (30.0-300.0) ng/mL Direct Bilirubin (0-0.2) mg/dL AST 310 H (5-40) units/L ALT 339 H (7-56) units/L Lactate Dehydrogenase (91-180) units/L Total Creatine Kinase (55-170) units/L Troponin T (0.00-0.029) ng/mL Albumin 3.6 L (3.9-5) g/dL Arterial Blood Ionized Calcium (4.6-5.3) mg/dL Urine pH (5.0-7.0) Salicylates < 0.3 L (2.8-20.0) mg/dL Acetaminophen 5.0 L (10.0-30.0) ug/mL 09/07/20 09/08/20 09/08/20 Range/Units 14:26 04:00 04:17 WBC (4.5-11.0) K/mm3 Hgb (11.8-15.2) gm/dl Hct (35.5-45.6) % MCHC (32-34) % RDW (13.2-15.2) % Seg Neuts % (Manual) (40.0-70.0) % Lymphocytes % (Manual) (13.4-35.0) % Monocytes % (Manual) (0.0-7.3) % Nucleated RBC % (0.0-0.9) % Seg Neutrophils # Man (1.8-7.7) K/mm3 Lymphocytes # (Manual) (1.2-5.4) K/mm3 Monocytes # (Manual) (0.0-0.8) K/mm3 PT (12.2-14.9) Sec. INR (0.87-1.13) D-Dimer (0-234) ng/mlDDU ABG pH 7.037 L 7.095 L (7.320-7.450) POC ABG pCO2 92.4 H 68.0 H (32.0-48.0) mmHg POC ABG pO2 130.8 H 43.5 L (83-108) mmHg ABG Hemoglobin 11.3 L 10.6 L (12.0-17.5) ABG Oxyhemoglobin 70.8 L (94-98) ABG Potassium 7.0 H (3.40-4.50) mmol/L ABG Chloride 108.0 H (98-107) mmol/L Carboxyhemoglobin 0.3 L (0.5-1.5) Potassium 8.4 H* D (3.6-5.0) mmol/L Carbon Dioxide 17 L D (22-30) mmol/L BUN 38 H (9-20) mg/dL Creatinine 3.9 H D (0.8-1.3) mg/dL Lactic Acid (0.7-2.0) mmol/L Calcium 7.7 L D (8.4-10.2) mg/dL Phosphorus (2.5-4.5) mg/dL Ferritin (30.0-300.0) ng/mL Direct Bilirubin (0-0.2) mg/dL AST (5-40) units/L ALT (7-56) units/L Lactate Dehydrogenase (91-180) units/L Total Creatine Kinase (55-170) units/L Troponin T (0.00-0.029) ng/mL Albumin (3.9-5) g/dL Arterial Blood Ionized Calcium 4.5 L (4.6-5.3) mg/dL Urine pH (5.0-7.0) Salicylates (2.8-20.0) mg/dL Acetaminophen (10.0-30.0) ug/mL 09/08/20 09/08/20 09/08/20 Range/Units 05:00 05:25 12:02 WBC (4.5-11.0) K/mm3 Hgb (11.8-15.2) gm/dl Hct (35.5-45.6) % MCHC (32-34) % RDW (13.2-15.2) % Seg Neuts % (Manual) (40.0-70.0) % Lymphocytes % (Manual) (13.4-35.0) % Monocytes % (Manual) (0.0-7.3) % Nucleated RBC % (0.0-0.9) % Seg Neutrophils # Man (1.8-7.7) K/mm3 Lymphocytes # (Manual) (1.2-5.4) K/mm3 Monocytes # (Manual) (0.0-0.8) K/mm3 PT (12.2-14.9) Sec. INR (0.87-1.13) D-Dimer (0-234) ng/mlDDU ABG pH 7.088 L (7.320-7.450) POC ABG pCO2 69.1 H (32.0-48.0) mmHg POC ABG pO2 35.2 L (83-108) mmHg ABG Hemoglobin 10.9 L (12.0-17.5) ABG Oxyhemoglobin 57.1 L (94-98) ABG Potassium 7.0 H (3.40-4.50) mmol/L ABG Chloride 108.0 H (98-107) mmol/L Carboxyhemoglobin 0.4 L (0.5-1.5) Potassium 8.1 H* (3.6-5.0) mmol/L Carbon Dioxide 17 L (22-30) mmol/L BUN 38 H (9-20) mg/dL Creatinine 3.7 H (0.8-1.3) mg/dL Lactic Acid (0.7-2.0) mmol/L Calcium 8.0 L (8.4-10.2) mg/dL Phosphorus 8.00 H (2.5-4.5) mg/dL Ferritin (30.0-300.0) ng/mL Direct Bilirubin 0.5 H (0-0.2) mg/dL AST 3696 H (5-40) units/L ALT 3331 H (7-56) units/L Lactate Dehydrogenase (91-180) units/L Total Creatine Kinase (55-170) units/L Troponin T (0.00-0.029) ng/mL Albumin 3.5 L (3.9-5) g/dL Arterial Blood Ionized Calcium 4.4 L (4.6-5.3) mg/dL Urine pH (5.0-7.0) Salicylates (2.8-20.0) mg/dL Acetaminophen (10.0-30.0) ug/mL 09/08/20 09/08/20 Range/Units Unknown Unknown WBC 18.4 H (4.5-11.0) K/mm3 Hgb 10.1 L (11.8-15.2) gm/dl Hct 32.0 L (35.5-45.6) % MCHC (32-34) % RDW 18.2 H (13.2-15.2) % Seg Neuts % (Manual) 81.0 H (40.0-70.0) % Lymphocytes % (Manual) 2.0 L (13.4-35.0) % Monocytes % (Manual) (0.0-7.3) % Nucleated RBC % 1.0 H (0.0-0.9) % Seg Neutrophils # Man 14.9 H (1.8-7.7) K/mm3 Lymphocytes # (Manual) 0.4 L (1.2-5.4) K/mm3 Monocytes # (Manual) 1.1 H (0.0-0.8) K/mm3 PT 21.2 H (12.2-14.9) Sec. INR 1.83 H (0.87-1.13) D-Dimer (0-234) ng/mlDDU ABG pH (7.320-7.450) POC ABG pCO2 (32.0-48.0) mmHg POC ABG pO2 (83-108) mmHg ABG Hemoglobin (12.0-17.5) ABG Oxyhemoglobin (94-98) ABG Potassium (3.40-4.50) mmol/L ABG Chloride (98-107) mmol/L Carboxyhemoglobin (0.5-1.5) Potassium (3.6-5.0) mmol/L Carbon Dioxide (22-30) mmol/L BUN (9-20) mg/dL Creatinine (0.8-1.3) mg/dL Lactic Acid (0.7-2.0) mmol/L Calcium (8.4-10.2) mg/dL Phosphorus (2.5-4.5) mg/dL Ferritin (30.0-300.0) ng/mL Direct Bilirubin (0-0.2) mg/dL AST (5-40) units/L ALT (7-56) units/L Lactate Dehydrogenase (91-180) units/L Total Creatine Kinase (55-170) units/L Troponin T (0.00-0.029) ng/mL Albumin (3.9-5) g/dL Arterial Blood Ionized Calcium (4.6-5.3) mg/dL Urine pH (5.0-7.0) Salicylates (2.8-20.0) mg/dL Acetaminophen (10.0-30.0) ug/mL Assessment and Plan Cultures: Blood culture 09/07/2020 pending SARS CoV2 PCR pending Assessment: 65 years old male with unknown medical history, morbidly obese, brought to the ED by EMS on 09/07/2020 secondary to passing out, found in out of hospital cardiac arrest status post resuscitation unable intubated on the field: #[id number] cardiac arrest/shock: Septic? Initial temperature 100.8, WBC 15.7, noted elevated lactate of 4.3, RYAN and transaminitis; etiology unclear, suspect COVID-19 infection. Urinalysis negative. Blood cultures pending. HIV rapid test negative. #Bilateral pneumonia: Suspect critical COVID-19 infection. Inflammatory markers elevated. D-dimer 8315. #Acute kidney failure: Creatinine worsening. Likely secondary to cardiac arrest/COVID-19 infection #Transaminitis: Likely secondary to COVID-19 infection/cardiac arrest. Viral hepatitis panel negative. #Encephalopathy: Initial GCS 3, noted myoclonic jerking.? Anoxic brain injury. CT of the head unremarkable. Recommendations: -Evaluation for PE and DVT -Continue dexamethasone 6 mg IV/PO daily for 10 days -Follow-up SARS-CoV-2 PCR -No indication for remdesivir at this time given renal failure, may consider if positive for SARS-CoV-2 PCR and CrCl>30 -Monitor inflammatory markers - ferritin, Ddimer, CRP, LDH -Monitor liver function test on Remdesivir -Continue anticoagulation per System Protocol -Prone positioning as possible -Obtain SARS CoV-2 IgG to determine length of infection -Continue ceftriaxone and azithromycin for now, procalcitonin is low however patient with septic shock -Follow-up blood cultures -Neuro consult Guarded prognosis Dr Stock rounding this weekend All laboratory, cultures and imaging were reviewed. Will follow Alison Briceno MD Infectious Diseases Clinical Transplant Coordinator [facility] ([facility]) M [phone] O [phone]
[2020-09-08] MEDS ORDERED: INSULIN REGULAR, HUMAN 100 UNITS/1 ML IV ONE (13:07)
[2020-09-08] MEDS ORDERED: SODIUM POLYSTYRENE 15 GM/60 ML ORAL LIQD PO ONE (13:08)
[2020-09-08] MEDS ORDERED: DEXTROSE 50% IN WATER (25GM) 50 ML SYRINGE IV ONE (13:08)
[2020-09-08] MEDS ORDERED: SODIUM CHLORIDE 0.9% 100 ML IV PRN (13:36)
--- NOTE | 2020-09-08 13:43 | Event Note ---
Date: 09/08/[address] Carrillo re: RYAN and severe hyperkalemia following cardiac arrest. Patient currently intubated - FiO1 100, PEEP 8, Rate 30, TV 475. Levophed infusing. Contacted at [phone]. Clinical update provided. She was advised of life threatening hyperkalemia and need for hemodialysis. Also advised patient that given cardiac arrest w/ seizure activity, overall prognosis is poor. voiced understanding and wishes to proceed with dialysis. Medical mgmt of hyperK ordered by critical care. Discussed case with Dr. Camara. HD orders entered and discussed with HD RN.
--- NOTE | 2020-09-08 13:52 | XRay Report ---
XR chest 1V ap INDICATION / CLINICAL INFORMATION: Altered Mental Status. COMPARISON: None available. FINDINGS: SUPPORT DEVICES: Endotracheal tube terminates appropriately at the level of the clavicular heads. En teric tube courses beneath the diaphragm. Side-port is beneath the GE junction.. HEART / MEDIASTINUM: Mild cardiomegaly. LUNGS / PLEURA: Bilateral airspace disease. No pneumothorax. ADDITIONAL FINDINGS: No significant additional findings. IMPRESSION: 1. Bilateral airspace disease which could be related to alveolar edema or infection. Signer Name: Johnny Malone MD Signed: 09/07/2020 2:21 PM Workstation Name: [employer]
--- NOTE | 2020-09-08 14:53 | Progress Note ---
Assessment and Plan Critical care statement The high probability OF a clinically significant sudden or life-threatening deterioration of the cardiorespiratory system and endocrine system required my full and direct attention, intervention and postoperative management. The aggregate critical care time was 40 minutes. The time is in addition to time spent performing reported procedures but includes the followin: Data review and interpretation 2: Patient assessment and monitoring of vital signs 3: Documentation 4:: Medication orders and management Assessment and Plan - Patient Problems --Cardiac arrest Current Visit: Yes Status: Acute Plan to address problem: Patient currently intubated and sedated. Admitted into the intensive care unit. 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 Will monitor ABG. --Hyperkalemia Treat High K Emergent HD per Nephrology --Suspected 2019 novel coronavirus infection Current Visit: Yes Status: Acute Plan to address problem: Patient is positive for coronavirus PCR We will defer to ID --Transaminitis Current Visit: Yes Status: Acute Plan to address problem: Possibly secondary to COVID-19 pneumonia. We will monitor LFTs. Also possible ischemic injury Transaminases are very high Patient not a candidate for liver transplantation --Morbid obesity Current Visit: Yes Status: Acute Plan to address problem: We will get dietary consult. --DVT prophylaxis Current Visit: Yes Status: Acute Plan to address problem: Patient placed on subcutaneous Lovenox. --Full code status Current Visit: Yes Status: Acute Plan to address problem: Patient is a full code. We will attempt to get further information from family. Critical care time spent is40 minutes Subjective Date of service: 09/08/20 Principal diagnosis: S/p cardiac arrest, Covid pneumonia, respiratory failure Interval history: 65-year-old male brought into the emergency room today by EMS for cardiopulmonary arrest. Patient was said to be awaiting a Covid test when he was said to have passed out. CPR was started and also patient was defibrillated once. CPR was continued on the field by EMS and patient had a spontaneous return of circulation. Upon arrival in the emergency room patient had been receiving bag valve mask ventilation through a Dayron airway. He was tachycardic and was subsequently intubated in the emergency room. Most of the history was obtained from the ER staff as patient is already intubated. Work-up in the emergency room today chest x-ray reveals:Bilateral airspace disease which could be related to alveolar edema or infection. CT scan of the head was unremarkable. Patient could not had a CT angiogram because of his size. Patient is being admitted for cardiopulmonary arrest and also possible Covid pneumonia. Day #2 Patient intubated Patient has high transaminitis status. S/p cardiac arrest ACLS and return of spontaneous circulation Hypoxic brain injury in the differential Covid pneumonia Objective - Exam Narrative Exam: Patient is intubated - Constitutional Vitals: Vital Signs - 12hr 09/08/20 09/08/20 09/08/20 03:00 03:31 03:45 Temperature Pulse Rate 62 58 L 59 L Respiratory 12 11 L 15 Rate Blood Pressure 85/34 100/46 100/46 Blood Pressure [Left] O2 Sat by Pulse 100 100 99 Oximetry 09/08/20 09/08/20 09/08/20 04:00 04:15 04:25 Temperature Pulse Rate 73 70 73 Respiratory 24 16 Rate Blood Pressure 104/43 104/43 104/44 Blood Pressure [Left] O2 Sat by Pulse 96 98 98 Oximetry 09/08/20 09/08/20 09/08/20 04:30 04:45 05:00 Temperature 104.8 F H Pulse Rate 69 61 60 Respiratory 19 25 H 14 Rate Blood Pressure 117/46 117/46 98/41 Blood Pressure [Left] O2 Sat by Pulse 100 100 100 Oximetry 09/08/20 09/08/20 09/08/20 05:15 05:30 05:45 Temperature Pulse Rate 62 68 68 Respiratory 13 30 H 30 H Rate Blood Pressure 120/51 121/52 Blood Pressure 106/42 [Left] O2 Sat by Pulse 100 100 100 Oximetry 09/08/20 09/08/20 09/08/20 06:00 06:38 06:41 Temperature Pulse Rate 67 66 66 Respiratory 30 H 30 H 30 H Rate Blood Pressure 129/59 123/47 Blood Pressure [Left] O2 Sat by Pulse 100 100 100 Oximetry 09/08/20 09/08/20 09/08/20 06:51 07:00 07:11 Temperature Pulse Rate 51 L 54 L 53 L Respiratory 30 H 30 H 30 H Rate Blood Pressure 81/33 109/45 109/45 Blood Pressure [Left] O2 Sat by Pulse 100 100 100 Oximetry 09/08/20 09/08/20 09/08/20 07:21 07:30 07:41 Temperature Pulse Rate 54 L 49 L 61 Respiratory 30 H 30 H 30 H Rate Blood Pressure 115/49 81/37 81/37 Blood Pressure [Left] O2 Sat by Pulse 100 100 100 Oximetry 09/08/20 09/08/20 09/08/20 07:51 08:00 08:11 Temperature 99.8 F H Pulse Rate 55 L 57 L 58 L Respiratory 30 H 30 H 30 H Rate Blood Pressure 125/48 126/51 126/51 Blood Pressure [Left] O2 Sat by Pulse 100 100 100 Oximetry 09/08/20 09/08/20 09/08/20 08:20 08:30 08:41 Temperature Pulse Rate 59 L 60 60 Respiratory 30 H 30 H 30 H Rate Blood Pressure 133/50 135/50 133/50 Blood Pressure [Left] O2 Sat by Pulse 100 100 100 Oximetry 09/08/20 09/08/20 09/08/20 08:51 09:00 09:11 Temperature Pulse Rate 60 59 L 59 L Respiratory 30 H 30 H 30 H Rate Blood Pressure 135/52 133/47 133/47 Blood Pressure [Left] O2 Sat by Pulse 100 100 100 Oximetry 09/08/20 09/08/20 09/08/20 09:21 09:30 09:41 Temperature Pulse Rate 59 L 59 L 60 Respiratory 30 H 30 H 30 H Rate Blood Pressure 136/51 140/52 140/52 Blood Pressure [Left] O2 Sat by Pulse 100 100 100 Oximetry 09/08/20 09/08/20 09/08/20 09:51 10:01 10:11 Temperature Pulse Rate 55 L 51 L 59 L Respiratory 30 H 30 H 30 H Rate Blood Pressure 145/51 92/34 92/34 Blood Pressure [Left] O2 Sat by Pulse 100 100 100 Oximetry 09/08/20 09/08/20 09/08/20 10:21 10:30 10:41 Temperature Pulse Rate 61 59 L 60 Respiratory 30 H 30 H 30 H Rate Blood Pressure 155/52 146/56 146/56 Blood Pressure [Left] O2 Sat by Pulse 100 100 100 Oximetry 09/08/20 09/08/20 09/08/20 10:51 11:00 11:11 Temperature Pulse Rate 61 59 L 59 L Respiratory 30 H 30 H 30 H Rate Blood Pressure 156/69 145/53 145/53 Blood Pressure [Left] O2 Sat by Pulse 100 100 100 Oximetry 09/08/20 09/08/20 09/08/20 11:21 11:31 11:41 Temperature Pulse Rate 59 L 59 L 59 L Respiratory 30 H 30 H 30 H Rate Blood Pressure 148/54 150/52 150/52 Blood Pressure [Left] O2 Sat by Pulse 100 100 100 Oximetry 09/08/20 09/08/20 09/08/20 11:51 12:00 12:11 Temperature 99.2 F Pulse Rate 60 58 L 60 Respiratory 30 H 30 H 30 H Rate Blood Pressure 159/59 150/55 150/55 Blood Pressure [Left] O2 Sat by Pulse 100 100 100 Oximetry 09/08/20 09/08/20 09/08/20 12:18 12:21 12:30 Temperature Pulse Rate 58 L 58 L 57 L Respiratory 30 H 30 H Rate Blood Pressure 143/52 143/52 144/53 Blood Pressure [Left] O2 Sat by Pulse 100 100 100 Oximetry 09/08/20 09/08/20 09/08/20 12:41 12:51 13:00 Temperature Pulse Rate 56 L 55 L 56 L Respiratory 30 H 30 H 30 H Rate Blood Pressure 144/53 129/48 137/51 Blood Pressure [Left] O2 Sat by Pulse 100 100 100 Oximetry General appearance: Present: mild distress, well-nourished - EENT Eyes: PERRL, EOM intact ENT: hearing intact, clear oral mucosa Ears: bilateral: normal - Neck Neck: supple, normal ROM - Respiratory Respiratory effort: normal Respiratory: bilateral: CTA - Breasts Breasts: normal - Cardiovascular Heart rate: 78 Rhythm: regular Heart Sounds: Present: S1 & S2. Absent: gallop, rub Extremities: pulses intact, No edema, normal color, Full ROM - Gastrointestinal General gastrointestinal: Present: soft, non-tender, non-distended, normal bowel sounds - Genitourinary Male genitourinary: normal - Integumentary Integumentary: clear, warm, dry - Musculoskeletal Musculoskeletal: generalized weakness - Neurologic Neurologic: other (Patient is intubated and sedated) - Psychiatric Psychiatric: other (Patient intubated and sedated) - Allied health notes Allied health notes reviewed: nursing, case management - Labs CBC & Chem 7: 09/10/20 04:05 09/10/20 04:00 Labs: Abnormal lab results 01/09/07/20 09/07/20 Range/Units 14:00 14:00 14:00 WBC (4.5-11.0) K/mm3 Hgb (11.8-15.2) gm/dl Hct (35.5-45.6) % RDW (13.2-15.2) % Seg Neuts % (Manual) 72.0 H (40.0-70.0) % Lymphocytes % (Manual) (13.4-35.0) % Monocytes % (Manual) 8.0 H (0.0-7.3) % Nucleated RBC % (0.0-0.9) % Seg Neutrophils # Man 11.3 H (1.8-7.7) K/mm3 Lymphocytes # (Manual) (1.2-5.4) K/mm3 Monocytes # (Manual) 1.3 H (0.0-0.8) K/mm3 PT (12.2-14.9) Sec. INR (0.87-1.13) D-Dimer 8315.85 H (0-234) ng/mlDDU ABG pH (7.320-7.450) POC ABG pCO2 (32.0-48.0) mmHg POC ABG pO2 (83-108) mmHg ABG Hemoglobin (12.0-17.5) ABG Oxyhemoglobin (94-98) ABG Potassium (3.40-4.50) mmol/L ABG Chloride (98-107) mmol/L Carboxyhemoglobin (0.5-1.5) Potassium (3.6-5.0) mmol/L Carbon Dioxide (22-30) mmol/L BUN (9-20) mg/dL Creatinine (0.8-1.3) mg/dL Calcium (8.4-10.2) mg/dL Phosphorus (2.5-4.5) mg/dL Ferritin (30.0-300.0) ng/mL Direct Bilirubin (0-0.2) mg/dL AST (5-40) units/L ALT (7-56) units/L Lactate Dehydrogenase 882 H (91-180) units/L Total Creatine Kinase 477 H (55-170) units/L Albumin (3.9-5) g/dL Arterial Blood Ionized Calcium (4.6-5.3) mg/dL Coronavirus (PCR) (Negative) 09/07/20 09/07/20 09/08/20 Range/Units 14:00 14:00 04:00 WBC (4.5-11.0) K/mm3 Hgb (11.8-15.2) gm/dl Hct (35.5-45.6) % RDW (13.2-15.2) % Seg Neuts % (Manual) (40.0-70.0) % Lymphocytes % (Manual) (13.4-35.0) % Monocytes % (Manual) (0.0-7.3) % Nucleated RBC % (0.0-0.9) % Seg Neutrophils # Man (1.8-7.7) K/mm3 Lymphocytes # (Manual) (1.2-5.4) K/mm3 Monocytes # (Manual) (0.0-0.8) K/mm3 PT (12.2-14.9) Sec. INR (0.87-1.13) D-Dimer (0-234) ng/mlDDU ABG pH (7.320-7.450) POC ABG pCO2 (32.0-48.0) mmHg POC ABG pO2 (83-108) mmHg ABG Hemoglobin (12.0-17.5) ABG Oxyhemoglobin (94-98) ABG Potassium (3.40-4.50) mmol/L ABG Chloride (98-107) mmol/L Carboxyhemoglobin (0.5-1.5) Potassium 8.4 H* D (3.6-5.0) mmol/L Carbon Dioxide 17 L D (22-30) mmol/L BUN 38 H (9-20) mg/dL Creatinine 1.8 H 3.9 H D (0.8-1.3) mg/dL Calcium 7.7 L D (8.4-10.2) mg/dL Phosphorus (2.5-4.5) mg/dL Ferritin > 2000.0 H (30.0-300.0) ng/mL Direct Bilirubin (0-0.2) mg/dL AST 310 H (5-40) units/L ALT 339 H (7-56) units/L Lactate Dehydrogenase (91-180) units/L Total Creatine Kinase (55-170) units/L Albumin 3.6 L (3.9-5) g/dL Arterial Blood Ionized Calcium (4.6-5.3) mg/dL Coronavirus (PCR) (Negative) 09/08/20 09/08/20 09/08/20 Range/Units 04:17 05:00 05:25 WBC (4.5-11.0) K/mm3 Hgb (11.8-15.2) gm/dl Hct (35.5-45.6) % RDW (13.2-15.2) % Seg Neuts % (Manual) (40.0-70.0) % Lymphocytes % (Manual) (13.4-35.0) % Monocytes % (Manual) (0.0-7.3) % Nucleated RBC % (0.0-0.9) % Seg Neutrophils # Man (1.8-7.7) K/mm3 Lymphocytes # (Manual) (1.2-5.4) K/mm3 Monocytes # (Manual) (0.0-0.8) K/mm3 PT (12.2-14.9) Sec. INR (0.87-1.13) D-Dimer (0-234) ng/mlDDU ABG pH 7.095 L 7.088 L (7.320-7.450) POC ABG pCO2 68.0 H 69.1 H (32.0-48.0) mmHg POC ABG pO2 43.5 L 35.2 L (83-108) mmHg ABG Hemoglobin 10.6 L 10.9 L (12.0-17.5) ABG Oxyhemoglobin 70.8 L 57.1 L (94-98) ABG Potassium 7.0 H 7.0 H (3.40-4.50) mmol/L ABG Chloride 108.0 H 108.0 H (98-107) mmol/L Carboxyhemoglobin 0.3 L 0.4 L (0.5-1.5) Potassium (3.6-5.0) mmol/L Carbon Dioxide (22-30) mmol/L BUN (9-20) mg/dL Creatinine (0.8-1.3) mg/dL Calcium (8.4-10.2) mg/dL Phosphorus (2.5-4.5) mg/dL Ferritin (30.0-300.0) ng/mL Direct Bilirubin 0.5 H (0-0.2) mg/dL AST 3696 H (5-40) units/L ALT 3331 H (7-56) units/L Lactate Dehydrogenase (91-180) units/L Total Creatine Kinase (55-170) units/L Albumin 3.5 L (3.9-5) g/dL Arterial Blood Ionized Calcium 4.5 L 4.4 L (4.6-5.3) mg/dL Coronavirus (PCR) (Negative) 09/08/20 09/08/20 09/08/20 Range/Units 12:02 Unknown Unknown WBC 18.4 H (4.5-11.0) K/mm3 Hgb 10.1 L (11.8-15.2) gm/dl Hct 32.0 L (35.5-45.6) % RDW 18.2 H (13.2-15.2) % Seg Neuts % (Manual) 81.0 H (40.0-70.0) % Lymphocytes % (Manual) 2.0 L (13.4-35.0) % Monocytes % (Manual) (0.0-7.3) % Nucleated RBC % 1.0 H (0.0-0.9) % Seg Neutrophils # Man 14.9 H (1.8-7.7) K/mm3 Lymphocytes # (Manual) 0.4 L (1.2-5.4) K/mm3 Monocytes # (Manual) 1.1 H (0.0-0.8) K/mm3 PT (12.2-14.9) Sec. INR (0.87-1.13) D-Dimer (0-234) ng/mlDDU ABG pH (7.320-7.450) POC ABG pCO2 (32.0-48.0) mmHg POC ABG pO2 (83-108) mmHg ABG Hemoglobin (12.0-17.5) ABG Oxyhemoglobin (94-98) ABG Potassium (3.40-4.50) mmol/L ABG Chloride (98-107) mmol/L Carboxyhemoglobin (0.5-1.5) Potassium 8.1 H* (3.6-5.0) mmol/L Carbon Dioxide 17 L (22-30) mmol/L BUN 38 H (9-20) mg/dL Creatinine 3.7 H (0.8-1.3) mg/dL Calcium 8.0 L (8.4-10.2) mg/dL Phosphorus 8.00 H (2.5-4.5) mg/dL Ferritin (30.0-300.0) ng/mL Direct Bilirubin (0-0.2) mg/dL AST (5-40) units/L ALT (7-56) units/L Lactate Dehydrogenase (91-180) units/L Total Creatine Kinase (55-170) units/L Albumin (3.9-5) g/dL Arterial Blood Ionized Calcium (4.6-5.3) mg/dL Coronavirus (PCR) Positive A (Negative) 09/08/20 Range/Units Unknown WBC (4.5-11.0) K/mm3 Hgb (11.8-15.2) gm/dl Hct (35.5-45.6) % RDW (13.2-15.2) % Seg Neuts % (Manual) (40.0-70.0) % Lymphocytes % (Manual) (13.4-35.0) % Monocytes % (Manual) (0.0-7.3) % Nucleated RBC % (0.0-0.9) % Seg Neutrophils # Man (1.8-7.7) K/mm3 Lymphocytes # (Manual) (1.2-5.4) K/mm3 Monocytes # (Manual) (0.0-0.8) K/mm3 PT 21.2 H (12.2-14.9) Sec. INR 1.83 H (0.87-1.13) D-Dimer (0-234) ng/mlDDU ABG pH (7.320-7.450) POC ABG pCO2 (32.0-48.0) mmHg POC ABG pO2 (83-108) mmHg ABG Hemoglobin (12.0-17.5) ABG Oxyhemoglobin (94-98) ABG Potassium (3.40-4.50) mmol/L ABG Chloride (98-107) mmol/L Carboxyhemoglobin (0.5-1.5) Potassium (3.6-5.0) mmol/L Carbon Dioxide (22-30) mmol/L BUN (9-20) mg/dL Creatinine (0.8-1.3) mg/dL Calcium (8.4-10.2) mg/dL Phosphorus (2.5-4.5) mg/dL Ferritin (30.0-300.0) ng/mL Direct Bilirubin (0-0.2) mg/dL AST (5-40) units/L ALT (7-56) units/L Lactate Dehydrogenase (91-180) units/L Total Creatine Kinase (55-170) units/L Albumin (3.9-5) g/dL Arterial Blood Ionized Calcium (4.6-5.3) mg/dL Coronavirus (PCR) (Negative) HEART Score - HEART Score Troponin: Troponin T 0.076 ng/mL (0.00-0.029) H 09/07/20 14:00
--- NOTE | 2020-09-08 16:02 | Consultation ---
History of Present Illness - Reason for Consult Consult date: 09/08/20 Vas-Cath Insertion Requesting physician: FEI MURRAY - History of Present Illness The patient is a 65-year-old male with presumed COVID-19 infection who was brought into the emergency department after a PEA arrest while awaiting testing for coronavirus at an outside facility. He was admitted to the intensive care unit and since his admission he has required pressure support and has developed multisystem organ failure including renal failure with hyperkalemia and a potassium of 8.4. He is in need of Vas-Cath insertion for emergent dialysis to treat his hyperkalemia. We were consulted for Vas-Cath placement. Past History Past Medical History: other (Unobtainable) Past Surgical History: Other (Unobtainable) Social history: other (Unobtainable) Family history: other (Unobtainable) Medications and Allergies Allergies Allergy/AdvReac Type Severity Reaction Status Date / Time Unable to Assess Allergy Verified 09/07/20 13:43 Active Meds: Active Medications Acetaminophen (Acetaminophen 650 Mg Rect Supp) 650 mg ID Q6H PRN PRN Reason: Pain, Mild (1-3) Last Admin: 09/08/20 01:07 Dose: 650 mg Documented by: Dexamethasone (Dexamethasone 4 Mg/Ml Vial) 6 mg IV Q24HR TAYLOR Last Admin: 09/08/20 10:28 Dose: 6 mg Documented by: Fentanyl (Fentanyl 100 Mcg/2 Ml Inj) 50 mcg IV Q10MIN PRN PRN Reason: ANALGESIA Last Admin: 09/07/20 19:26 Dose: 50 mcg Documented by: Hydrophilic Ointment (Lip Therapy Vaseline) 1 applic TP Q2HR PRN PRN Reason: Dry Lips Ceftriaxone Sodium (Rocephin/Ns 2 Gm/100 Ml) 2 gm in 100 mls @ 200 mls/hr IV Q24H TAYLOR; Protocol Azithromycin (Zithromax/Ns) 500 mg in 250 mls @ 250 mls/hr IV Q24H TAYLOR; Protocol Sodium Chloride (Nacl 0.9% 1000 Ml) 1,000 mls @ 110 mls/hr IV DIRECT TAYLOR Last Admin: 09/08/20 06:25 Dose: 110 mls/hr Documented by: Norepinephrine (Levophed Drip 4 Mg/Ns 250 Ml) 4 mg in 250 mls @ 7.5 mls/hr IV TITR TAYLOR; Protocol Last Admin: 09/08/20 11:45 Dose: 2 mcg/min, 7.5 mls/hr Documented by: Lorazepam 100 mg/ Sodium Chloride/ Miscellaneous Information 100 mls @ 1 mls/hr IV TITR TAYLOR; Protocol Last Titration: 09/08/20 12:10 Dose: 0 mg/hr, 0 mls/hr Documented by: Vasopressin 20 unit/ Sodium (Chloride) 101 mls @ 9.09 mls/hr IV TITR TAYLOR; Protocol Last Titration: 09/08/20 08:43 Dose: 0 units/min, 0 mls/hr Documented by: Sodium Bicarbonate 150 meq/ (Dextrose) 1,150 mls @ 75 mls/hr IV DIRECT TAYLOR Last Admin: 09/08/20 12:33 Dose: 75 mls/hr Documented by: Sodium Chloride (Nacl 0.9%) 100 mls @ 999 mls/hr IV JAYJAY PRN PRN Reason: Hypotension Ibuprofen (Ibuprofen 400 Mg Tab) 400 mg PO Q6H PRN PRN Reason: Pain, Mild (1-3) Lorazepam (Lorazepam 2 Mg/Ml Vial) 2 mg IV Q4H PRN PRN Reason: Seizures Last Admin: 09/08/20 05:21 Dose: 2 mg Documented by: Lorazepam (Lorazepam 2 Mg/Ml Vial) 2 mg IV Q10MIN PRN PRN Reason: Agitation Morphine Sulfate (Morphine 2 Mg/1 Ml Inj) 2 mg IV Q4H PRN PRN Reason: Pain, Moderate (4-6) Multi-Ingred Cream/Lotion/Oil/Oint (Mineral Oil/Petrolatum, White Ophth Oint 3.5 Gm) 1 applic OU Q4HR PRN PRN Reason: Dry Eye(s) Ondansetron HCl (Ondansetron 4 Mg/2 Ml Inj) 4 mg IV Q8H PRN PRN Reason: Nausea And Vomiting Sodium Chloride (Sodium Chloride 0.9% 10 Ml Flush Syringe) 10 ml IV BID TAYLOR Last Admin: 09/08/20 10:30 Dose: 10 ml Documented by: Sodium Chloride (Sodium Chloride 0.9% 10 Ml Flush Syringe) 10 ml IV PRN PRN PRN Reason: LINE FLUSH Review of Systems ROS unobtainable: due to endotracheal tube Exam - Constitutional Vitals: Temp Pulse Resp BP Pulse Ox 99.2 F 57 L 30 H 166/73 100 09/08/20 12:00 09/08/20 15:51 09/08/20 15:51 09/08/20 15:51 09/08/20 15:51 General appearance: Present: other (Intubated and sedated) - Respiratory Respiratory effort: other (Respirator dependent) - Cardiovascular Rhythm: regular - Extremities Extremities: abnormal (Dermatosclerosis of bilateral lower extremities) Extremity abnormal: edema (Bilateral lower extremity) - Abdominal General gastrointestinal: Present: soft, other (Protuberant) Male genitourinary: Present: normal - Rectal Rectal Exam: deferred Results - Labs CBC & Chem 7: 09/08/20 Unknown 09/08/20 12:02 Labs: Abnormal lab results 09/08/20 09/08/20 09/08/20 Range/Units 04:00 04:17 05:00 WBC (4.5-11.0) K/mm3 Hgb (11.8-15.2) gm/dl Hct (35.5-45.6) % RDW (13.2-15.2) % Seg Neuts % (Manual) (40.0-70.0) % Lymphocytes % (Manual) (13.4-35.0) % Nucleated RBC % (0.0-0.9) % Seg Neutrophils # Man (1.8-7.7) K/mm3 Lymphocytes # (Manual) (1.2-5.4) K/mm3 Monocytes # (Manual) (0.0-0.8) K/mm3 PT (12.2-14.9) Sec. INR (0.87-1.13) ABG pH 7.095 L (7.320-7.450) POC ABG pCO2 68.0 H (32.0-48.0) mmHg POC ABG pO2 43.5 L (83-108) mmHg ABG Hemoglobin 10.6 L (12.0-17.5) ABG Oxyhemoglobin 70.8 L (94-98) ABG Potassium 7.0 H (3.40-4.50) mmol/L ABG Chloride 108.0 H (98-107) mmol/L Carboxyhemoglobin 0.3 L (0.5-1.5) Potassium 8.4 H* D (3.6-5.0) mmol/L Carbon Dioxide 17 L D (22-30) mmol/L BUN 38 H (9-20) mg/dL Creatinine 3.9 H D (0.8-1.3) mg/dL Calcium 7.7 L D (8.4-10.2) mg/dL Phosphorus (2.5-4.5) mg/dL Direct Bilirubin 0.5 H (0-0.2) mg/dL AST 3696 H (5-40) units/L ALT 3331 H (7-56) units/L Albumin 3.5 L (3.9-5) g/dL Arterial Blood Ionized Calcium 4.5 L (4.6-5.3) mg/dL Coronavirus (PCR) (Negative) 09/08/20 09/08/20 09/08/20 Range/Units 05:25 12:02 Unknown WBC (4.5-11.0) K/mm3 Hgb (11.8-15.2) gm/dl Hct (35.5-45.6) % RDW (13.2-15.2) % Seg Neuts % (Manual) (40.0-70.0) % Lymphocytes % (Manual) (13.4-35.0) % Nucleated RBC % (0.0-0.9) % Seg Neutrophils # Man (1.8-7.7) K/mm3 Lymphocytes # (Manual) (1.2-5.4) K/mm3 Monocytes # (Manual) (0.0-0.8) K/mm3 PT (12.2-14.9) Sec. INR (0.87-1.13) ABG pH 7.088 L (7.320-7.450) POC ABG pCO2 69.1 H (32.0-48.0) mmHg POC ABG pO2 35.2 L (83-108) mmHg ABG Hemoglobin 10.9 L (12.0-17.5) ABG Oxyhemoglobin 57.1 L (94-98) ABG Potassium 7.0 H (3.40-4.50) mmol/L ABG Chloride 108.0 H (98-107) mmol/L Carboxyhemoglobin 0.4 L (0.5-1.5) Potassium 8.1 H* (3.6-5.0) mmol/L Carbon Dioxide 17 L (22-30) mmol/L BUN 38 H (9-20) mg/dL Creatinine 3.7 H (0.8-1.3) mg/dL Calcium 8.0 L (8.4-10.2) mg/dL Phosphorus 8.00 H (2.5-4.5) mg/dL Direct Bilirubin (0-0.2) mg/dL AST (5-40) units/L ALT (7-56) units/L Albumin (3.9-5) g/dL Arterial Blood Ionized Calcium 4.4 L (4.6-5.3) mg/dL Coronavirus (PCR) Positive A (Negative) 09/08/20 09/08/20 Range/Units Unknown Unknown WBC 18.4 H (4.5-11.0) K/mm3 Hgb 10.1 L (11.8-15.2) gm/dl Hct 32.0 L (35.5-45.6) % RDW 18.2 H (13.2-15.2) % Seg Neuts % (Manual) 81.0 H (40.0-70.0) % Lymphocytes % (Manual) 2.0 L (13.4-35.0) % Nucleated RBC % 1.0 H (0.0-0.9) % Seg Neutrophils # Man 14.9 H (1.8-7.7) K/mm3 Lymphocytes # (Manual) 0.4 L (1.2-5.4) K/mm3 Monocytes # (Manual) 1.1 H (0.0-0.8) K/mm3 PT 21.2 H (12.2-14.9) Sec. INR 1.83 H (0.87-1.13) ABG pH (7.320-7.450) POC ABG pCO2 (32.0-48.0) mmHg POC ABG pO2 (83-108) mmHg ABG Hemoglobin (12.0-17.5) ABG Oxyhemoglobin (94-98) ABG Potassium (3.40-4.50) mmol/L ABG Chloride (98-107) mmol/L Carboxyhemoglobin (0.5-1.5) Potassium (3.6-5.0) mmol/L Carbon Dioxide (22-30) mmol/L BUN (9-20) mg/dL Creatinine (0.8-1.3) mg/dL Calcium (8.4-10.2) mg/dL Phosphorus (2.5-4.5) mg/dL Direct Bilirubin (0-0.2) mg/dL AST (5-40) units/L ALT (7-56) units/L Albumin (3.9-5) g/dL Arterial Blood Ionized Calcium (4.6-5.3) mg/dL Coronavirus (PCR) (Negative) Assessment and Plan The patient is a 65-year-old male with multisystem organ failure including renal insufficiency with hyperkalemia and need of emergent hemodialysis. He requires a Vas-Cath for dialysis access. His was given the risk, benefits, and alternative procedures and consented to the procedure.
[2020-09-08] MEDS: cefTRIAXone/NS 2 GM/100 ML 2 GM/100 ML BAG IV SCH (16:03)
--- NOTE | 2020-09-08 16:13 | Operative Report ---
Operative Report Operative Report: Date of Procedure: 09/08/2020 Pre-operative Diagnosis: Acute Renal Insufficiency with Hyperkalemia Post-operative Diagnosis: Same Procedure(s): 1. Ultrasound-Guided Access Left Common Femoral Vein 2. Placement of 30 Cm Tri-Alysis Vas-Cath Surgeon: Robert Camara M.D. Front End Software Developer: Marcos Anesthesia: 2% Lidocaine EBL: Minimal Counts: Correct Complications: None Condition: Critical Findings: All ports aspirated and flushed easily. Specimen: None Indication: The patient is a 65-year-old male with COVID-19 infection and multisystem organ failure who has acute renal failure with hyperkalemia and a potassium of 8.4. He is in need of emergent hemodialysis and requires a Vas-Cath for dialysis access. The patient is currently intubated so his was given the risk, benefits, and alternative procedures and consented to the procedure. Description of Procedure: The procedure was performed at the patient's bedside in the intensive care unit. Ultrasound was used to identify the patient's left femoral vein and confirm patency. Once patency was confirmed the overlying skin and soft tissue was anesthetized with lidocaine. An 11 blade was used to make a small stab incision and then an 18-gauge access needle was used with ultrasound guidance into the left common femoral vein. A 0.035 J-wire was advanced to the vein and after removing the needle the tract was serially dilated. A 30 cm Tri-Alysis Vas-Cath was then inserted by Seldinger technique. The wire was removed and all ports were then aspirated and flushed with saline. The ports were then primed with the appropriate amount heparin. The catheter was secured in position with 3-0 silk suture in interrupted fashion and then dressed with a sterile dressing. The patient tolerated the procedure well. All sponge, needle, and instrument counts were correct. The patient remained in the intensive care unit in critical but stable condition.
[2020-09-08 16:28] LABS: Creatinine,Urine 182.4 mg/dL (0.1-20.0)
[2020-09-08] MEDS: AZITHROMYCIN/NS 500 MG/250 ML 500 MG/250 ML BAG IV SCH (18:03)
--- NOTE | 2020-09-08 19:13 | Consultation ---
History of Present Illness - Reason for Consult Consult date: 09/08/20 Abnormal LFTs Requesting physician: AGNES WILLIS - History of Present Illness 65 yo BM, on whom I am consulted for evaluation of abnormal LFTs. Pt was awaiting COVID testing and had a Cardiopulmonary arrest requiring resuscitation. He in currently intubated, and is COVID positive. History obtained from chart. Pt had transaminases in the 300s on initial check, and now upto ~ 3000. He is in acute renal failure as well. Meds reviewed. Past History Past Medical History: other (Unobtainable) Past Surgical History: Other (Unobtainable) Social history: other (Unobtainable) Family history: other (Unobtainable) Medications and Allergies Allergies Allergy/AdvReac Type Severity Reaction Status Date / Time Unable to Assess Allergy Verified 09/07/20 13:43 Active Meds: Active Medications Acetaminophen (Acetaminophen 650 Mg Rect Supp) 650 mg UT Q6H PRN PRN Reason: Pain, Mild (1-3) Last Admin: 09/08/20 01:07 Dose: 650 mg Documented by: Dexamethasone (Dexamethasone 4 Mg/Ml Vial) 6 mg IV Q24HR TAYLOR Last Admin: 09/08/20 10:28 Dose: 6 mg Documented by: Fentanyl (Fentanyl 100 Mcg/2 Ml Inj) 50 mcg IV Q10MIN PRN PRN Reason: ANALGESIA Last Admin: 09/07/20 19:26 Dose: 50 mcg Documented by: Hydrophilic Ointment (Lip Therapy Vaseline) 1 applic TP Q2HR PRN PRN Reason: Dry Lips Ceftriaxone Sodium (Rocephin/Ns 2 Gm/100 Ml) 2 gm in 100 mls @ 200 mls/hr IV Q24H TAYLOR; Protocol Last Admin: 09/08/20 16:03 Dose: 200 mls/hr Documented by: Azithromycin (Zithromax/Ns) 500 mg in 250 mls @ 250 mls/hr IV Q24H TAYLOR; Protocol Last Admin: 09/08/20 18:03 Dose: 250 mls/hr Documented by: Sodium Chloride (Nacl 0.9% 1000 Ml) 1,000 mls @ 110 mls/hr IV DIRECT TAYLOR Last Admin: 09/08/20 06:25 Dose: 110 mls/hr Documented by: Norepinephrine (Levophed Drip 4 Mg/Ns 250 Ml) 4 mg in 250 mls @ 7.5 mls/hr IV TITR TAYLOR; Protocol Last Titration: 09/08/20 12:00 Dose: 0 mcg/min, 0 mls/hr Documented by: Lorazepam 100 mg/ Sodium Chloride/ Miscellaneous Information 100 mls @ 1 mls/hr IV TITR TAYLOR; Protocol Last Titration: 09/08/20 18:04 Dose: 1 mg/hr, 1 mls/hr Documented by: Vasopressin 20 unit/ Sodium (Chloride) 101 mls @ 9.09 mls/hr IV TITR TAYLOR; Protocol Last Titration: 09/08/20 08:43 Dose: 0 units/min, 0 mls/hr Documented by: Sodium Bicarbonate 150 meq/ (Dextrose) 1,150 mls @ 75 mls/hr IV DIRECT TAYLOR Last Admin: 09/08/20 12:33 Dose: 75 mls/hr Documented by: Sodium Chloride (Nacl 0.9%) 100 mls @ 999 mls/hr IV JAYJAY PRN PRN Reason: Hypotension Ibuprofen (Ibuprofen 400 Mg Tab) 400 mg PO Q6H PRN PRN Reason: Pain, Mild (1-3) Lorazepam (Lorazepam 2 Mg/Ml Vial) 2 mg IV Q4H PRN PRN Reason: Seizures Last Admin: 09/08/20 18:05 Dose: 2 mg Documented by: Lorazepam (Lorazepam 2 Mg/Ml Vial) 2 mg IV Q10MIN PRN PRN Reason: Agitation Morphine Sulfate (Morphine 2 Mg/1 Ml Inj) 2 mg IV Q4H PRN PRN Reason: Pain, Moderate (4-6) Multi-Ingred Cream/Lotion/Oil/Oint (Mineral Oil/Petrolatum, White Ophth Oint 3.5 Gm) 1 applic OU Q4HR PRN PRN Reason: Dry Eye(s) Ondansetron HCl (Ondansetron 4 Mg/2 Ml Inj) 4 mg IV Q8H PRN PRN Reason: Nausea And Vomiting Sodium Chloride (Sodium Chloride 0.9% 10 Ml Flush Syringe) 10 ml IV BID TAYLOR Last Admin: 09/08/20 10:30 Dose: 10 ml Documented by: Sodium Chloride (Sodium Chloride 0.9% 10 Ml Flush Syringe) 10 ml IV PRN PRN PRN Reason: LINE FLUSH Exam - Physical Exam Narrative exam: Pt not seen due to pt being COVID positive, and evaluation adequate with chart review and seeing pt through window. - Constitutional Vitals: Temp Pulse Resp BP Pulse Ox 98.8 F 71 20 177/78 100 09/08/20 17:20 09/08/20 18:45 09/08/20 18:30 09/08/20 18:45 09/08/20 18:30 General appearance: Present: other (Intubated) Results - Labs CBC & Chem 7: 09/08/20 Unknown 09/08/20 12:02 Labs: Abnormal lab results 09/08/20 09/08/20 09/08/20 Range/Units 04:00 04:17 05:00 WBC (4.5-11.0) K/mm3 Hgb (11.8-15.2) gm/dl Hct (35.5-45.6) % RDW (13.2-15.2) % Seg Neuts % (Manual) (40.0-70.0) % Lymphocytes % (Manual) (13.4-35.0) % Nucleated RBC % (0.0-0.9) % Seg Neutrophils # Man (1.8-7.7) K/mm3 Lymphocytes # (Manual) (1.2-5.4) K/mm3 Monocytes # (Manual) (0.0-0.8) K/mm3 PT (12.2-14.9) Sec. INR (0.87-1.13) ABG pH 7.095 L (7.320-7.450) POC ABG pCO2 68.0 H (32.0-48.0) mmHg POC ABG pO2 43.5 L (83-108) mmHg ABG Hemoglobin 10.6 L (12.0-17.5) ABG Oxyhemoglobin 70.8 L (94-98) ABG Potassium 7.0 H (3.40-4.50) mmol/L ABG Chloride 108.0 H (98-107) mmol/L Carboxyhemoglobin 0.3 L (0.5-1.5) Potassium 8.4 H* D (3.6-5.0) mmol/L Carbon Dioxide 17 L D (22-30) mmol/L BUN 38 H (9-20) mg/dL Creatinine 3.9 H D (0.8-1.3) mg/dL POC Glucose (70-105) mg/dL Calcium 7.7 L D (8.4-10.2) mg/dL Phosphorus (2.5-4.5) mg/dL Direct Bilirubin 0.5 H (0-0.2) mg/dL AST 3696 H (5-40) units/L ALT 3331 H (7-56) units/L Albumin 3.5 L (3.9-5) g/dL Arterial Blood Ionized Calcium 4.5 L (4.6-5.3) mg/dL Urine Creatinine (0.1-20.0) mg/dL Coronavirus (PCR) (Negative) 09/08/20 09/08/20 09/08/20 Range/Units 05:25 12:02 16:31 WBC (4.5-11.0) K/mm3 Hgb (11.8-15.2) gm/dl Hct (35.5-45.6) % RDW (13.2-15.2) % Seg Neuts % (Manual) (40.0-70.0) % Lymphocytes % (Manual) (13.4-35.0) % Nucleated RBC % (0.0-0.9) % Seg Neutrophils # Man (1.8-7.7) K/mm3 Lymphocytes # (Manual) (1.2-5.4) K/mm3 Monocytes # (Manual) (0.0-0.8) K/mm3 PT (12.2-14.9) Sec. INR (0.87-1.13) ABG pH 7.088 L (7.320-7.450) POC ABG pCO2 69.1 H (32.0-48.0) mmHg POC ABG pO2 35.2 L (83-108) mmHg ABG Hemoglobin 10.9 L (12.0-17.5) ABG Oxyhemoglobin 57.1 L (94-98) ABG Potassium 7.0 H (3.40-4.50) mmol/L ABG Chloride 108.0 H (98-107) mmol/L Carboxyhemoglobin 0.4 L (0.5-1.5) Potassium 8.1 H* (3.6-5.0) mmol/L Carbon Dioxide 17 L (22-30) mmol/L BUN 38 H (9-20) mg/dL Creatinine 3.7 H (0.8-1.3) mg/dL POC Glucose 158 H (70-105) mg/dL Calcium 8.0 L (8.4-10.2) mg/dL Phosphorus 8.00 H (2.5-4.5) mg/dL Direct Bilirubin (0-0.2) mg/dL AST (5-40) units/L ALT (7-56) units/L Albumin (3.9-5) g/dL Arterial Blood Ionized Calcium 4.4 L (4.6-5.3) mg/dL Urine Creatinine (0.1-20.0) mg/dL Coronavirus (PCR) (Negative) 09/08/20 09/08/20 09/08/20 Range/Units Unknown Unknown Unknown WBC 18.4 H (4.5-11.0) K/mm3 Hgb 10.1 L (11.8-15.2) gm/dl Hct 32.0 L (35.5-45.6) % RDW 18.2 H (13.2-15.2) % Seg Neuts % (Manual) 81.0 H (40.0-70.0) % Lymphocytes % (Manual) 2.0 L (13.4-35.0) % Nucleated RBC % 1.0 H (0.0-0.9) % Seg Neutrophils # Man 14.9 H (1.8-7.7) K/mm3 Lymphocytes # (Manual) 0.4 L (1.2-5.4) K/mm3 Monocytes # (Manual) 1.1 H (0.0-0.8) K/mm3 PT 21.2 H (12.2-14.9) Sec. INR 1.83 H (0.87-1.13) ABG pH (7.320-7.450) POC ABG pCO2 (32.0-48.0) mmHg POC ABG pO2 (83-108) mmHg ABG Hemoglobin (12.0-17.5) ABG Oxyhemoglobin (94-98) ABG Potassium (3.40-4.50) mmol/L ABG Chloride (98-107) mmol/L Carboxyhemoglobin (0.5-1.5) Potassium (3.6-5.0) mmol/L Carbon Dioxide (22-30) mmol/L BUN (9-20) mg/dL Creatinine (0.8-1.3) mg/dL POC Glucose (70-105) mg/dL Calcium (8.4-10.2) mg/dL Phosphorus (2.5-4.5) mg/dL Direct Bilirubin (0-0.2) mg/dL AST (5-40) units/L ALT (7-56) units/L Albumin (3.9-5) g/dL Arterial Blood Ionized Calcium (4.6-5.3) mg/dL Urine Creatinine (0.1-20.0) mg/dL Coronavirus (PCR) Positive A (Negative) 09/08/20 Range/Units Unknown WBC (4.5-11.0) K/mm3 Hgb (11.8-15.2) gm/dl Hct (35.5-45.6) % RDW (13.2-15.2) % Seg Neuts % (Manual) (40.0-70.0) % Lymphocytes % (Manual) (13.4-35.0) % Nucleated RBC % (0.0-0.9) % Seg Neutrophils # Man (1.8-7.7) K/mm3 Lymphocytes # (Manual) (1.2-5.4) K/mm3 Monocytes # (Manual) (0.0-0.8) K/mm3 PT (12.2-14.9) Sec. INR (0.87-1.13) ABG pH (7.320-7.450) POC ABG pCO2 (32.0-48.0) mmHg POC ABG pO2 (83-108) mmHg ABG Hemoglobin (12.0-17.5) ABG Oxyhemoglobin (94-98) ABG Potassium (3.40-4.50) mmol/L ABG Chloride (98-107) mmol/L Carboxyhemoglobin (0.5-1.5) Potassium (3.6-5.0) mmol/L Carbon Dioxide (22-30) mmol/L BUN (9-20) mg/dL Creatinine (0.8-1.3) mg/dL POC Glucose (70-105) mg/dL Calcium (8.4-10.2) mg/dL Phosphorus (2.5-4.5) mg/dL Direct Bilirubin (0-0.2) mg/dL AST (5-40) units/L ALT (7-56) units/L Albumin (3.9-5) g/dL Arterial Blood Ionized Calcium (4.6-5.3) mg/dL Urine Creatinine 182.4 H (0.1-20.0) mg/dL Coronavirus (PCR) (Negative) Assessment and Plan 1. Abnormal transaminases - most c/w shock liver or ischemic hepatopathy. Hepatitis serologies negative. INR up at 1.8, and can check for synthetic function by giving vit K, but will hold off unless keeps going up, since COVID positive, to help with relative anticoagulation. - monitor LFTs - if INR keeps going up, give vit K and check for response - when medically stable, can get further history, and check liver U/S 2. COVID positive - per Hospitalist
--- NOTE | 2020-09-09 02:29 | XRay Report ---
CHEST 1 VIEW 2:05 AM INDICATION / CLINICAL INFORMATION: Follow-up respiratory failure. COMPARISON: Yesterday. FINDINGS: SUPPORT DEVICES: The positions of the endotracheal and nasogastric tubes have not changed. HEART / MEDIASTINUM: Unchanged. LUNGS / PLEURA: Parenchymal opacity in the left retrocardiac region is stable. There is new parenchym al opacity in the right lower lung. No pneumothorax. ADDITIONAL FINDINGS: Surgical clips in the lower neck bilaterally. IMPRESSION: Increasing parenchymal disease in the right lower lung. Signer Name: Florentin Iqbal MD Signed: 09/09/2020 2:25 AM Workstation Name: [id number]
[2020-09-09] MEDS: SODIUM BICARBONATE 150 MEQ in DEXTROSE 5% IN WATER 1,000 ML IV SCH ×2 (03:56→20:18)
[2020-09-09 05:37] LABS: Basophils % (Auto) 0.2 % (0.0-1.8); Eosinophils % (Auto) 0.2 % (0.0-4.3); Hematocrit 26.8 % (35.5-45.6); Hemoglobin 8.6 gm/dl (11.8-15.2); Lymphocytes % (Auto) 6.3 % (13.4-35.0); Mean Corpuscular HGB Conc 32 % (32-34); Mean Corpuscular Volume 86 fl (84-94); Monocytes # (Auto) 1.4 K/mm3 (0.0-0.8); Monocytes % (Auto) 8.8 % (0.0-7.3); Platelet Count 140 K/mm3 (140-440); Red Blood Count 3.12 M/mm3 (3.65-5.03); Red Cell Distribution Width 18.2 % (13.2-15.2)
[2020-09-09 05:53] LABS: Calcium 7.4 mg/dL (8.4-10.2)
[2020-09-09] MEDS ORDERED: SODIUM CHLORIDE 0.9% 500 ML 500 ML IV ONE (09:21)
[2020-09-09] MEDS ORDERED: PHYTONADIONE(ADULT ONLY) 10 MG in SODIUM CHLORIDE 0.9% 50 ML IV ONE (09:21)
--- NOTE | 2020-09-09 09:27 | Progress Note ---
Assessment and Plan 65 y/o male with out of hospital cardiac arrest now sedated on ativan for possible seizures. 09/09/20: EEG ordered on yesterday but not done. If done not read. Continue diprovan for now until EEG can be done or interpreted. State Coags but given his oozing from his vascath, will give Vitamin K and FFP. Patient is covid positive so agree with steroids. Not a candidate for remdesivir. Need to check for antibodies, may be a candidate for convalescent plasma. HD per renal. Given improvement in pH will stop bicarb drip. Feed patient. 1. Stop sedation 2. EEG 3. Needs neuro consult. 4. Art line placement 5. Stat repeat of labs, if renal function is truly that bad, will need renal consult. 6. Follow up COVID testing 7. Likely needs echo 8. Will place on bicarb drip. CCT 31 minutes. Subjective Date of service: 09/09/20 Interval history: HD on yesterday. Acidosis is better. LFT's worse, but still feel from ischemia. Ordered stat coags for this am. Down to 70% FiO2. Per dayshift nursing, off ativan patient was having intermittent seizure activity and not myoclonic jerking. Started diprovan and now at 20 which i am told is the amount needed to abort these episodes. Patient is also COVID positive. Objective Vital Signs - 12hr 09/08/20 09/08/20 09/08/20 21:30 21:40 21:50 Temperature Pulse Rate 65 64 64 Pulse Rate [ From Monitor] Respiratory 30 H 30 H 30 H Rate Blood Pressure 111/48 110/49 112/50 O2 Sat by Pulse 99 99 99 Oximetry 09/08/20 09/08/20 09/08/20 22:00 22:10 22:20 Temperature Pulse Rate 63 63 63 Pulse Rate [ From Monitor] Respiratory 30 H 30 H 30 H Rate Blood Pressure 114/49 116/50 116/49 O2 Sat by Pulse 99 99 99 Oximetry 09/08/20 09/08/20 09/08/20 22:30 22:41 22:51 Temperature Pulse Rate 63 62 63 Pulse Rate [ From Monitor] Respiratory 30 H 30 H 30 H Rate Blood Pressure 120/53 117/53 118/53 O2 Sat by Pulse 99 100 100 Oximetry 09/08/20 09/08/2021 23:00 23:11 23:21 Temperature Pulse Rate 63 63 64 Pulse Rate [ From Monitor] Respiratory 30 H 30 H 30 H Rate Blood Pressure 117/52 117/52 120/51 O2 Sat by Pulse 100 100 100 Oximetry 09/08/20 09/08/20 09/08/20 23:30 23:38 23:41 Temperature 98.8 F Pulse Rate 64 64 Pulse Rate [ From Monitor] Respiratory 30 H 30 H Rate Blood Pressure 120/53 120/53 O2 Sat by Pulse 100 100 Oximetry 09/08/20 09/09/20 09/09/20 23:51 00:00 00:05 Temperature Pulse Rate 64 64 64 Pulse Rate [ 62 From Monitor] Respiratory 30 H 30 H 30 H Rate Blood Pressure 121/52 118/52 118/52 O2 Sat by Pulse 100 99 100 Oximetry 09/09/20 09/09/20 09/09/20 00:11 00:16 00:21 Temperature Pulse Rate 62 63 64 Pulse Rate [ From Monitor] Respiratory 30 H 30 H Rate Blood Pressure 118/52 116/49 116/49 O2 Sat by Pulse 100 100 100 Oximetry 09/09/20 09/09/20 09/09/20 00:30 00:41 00:51 Temperature Pulse Rate 64 64 63 Pulse Rate [ From Monitor] Respiratory 30 H 30 H 30 H Rate Blood Pressure 119/50 119/50 119/50 O2 Sat by Pulse 99 100 100 Oximetry 09/09/20 09/09/20 09/09/20 01:00 01:11 01:21 Temperature Pulse Rate 64 64 64 Pulse Rate [ From Monitor] Respiratory 30 H 30 H 30 H Rate Blood Pressure 118/50 118/50 118/52 O2 Sat by Pulse 99 100 100 Oximetry 09/09/20 09/09/20 09/09/20 01:30 01:41 01:51 Temperature Pulse Rate 64 62 64 Pulse Rate [ From Monitor] Respiratory 30 H 30 H 30 H Rate Blood Pressure 119/50 119/50 126/56 O2 Sat by Pulse 99 100 100 Oximetry 09/09/20 09/09/20 09/09/20 02:00 02:11 02:20 Temperature Pulse Rate 65 71 74 Pulse Rate [ From Monitor] Respiratory 26 H 26 H 20 Rate Blood Pressure 126/59 126/58 136/44 O2 Sat by Pulse 99 98 97 Oximetry 09/09/20 09/09/20 09/09/20 02:30 02:41 02:50 Temperature Pulse Rate 72 66 64 Pulse Rate [ From Monitor] Respiratory 21 19 30 H Rate Blood Pressure 138/40 131/51 107/46 O2 Sat by Pulse 97 100 100 Oximetry 09/09/20 09/09/20 09/09/20 03:00 03:10 03:20 Temperature Pulse Rate 63 62 62 Pulse Rate [ From Monitor] Respiratory 30 H 30 H 29 H Rate Blood Pressure 109/47 111/47 109/49 O2 Sat by Pulse 100 100 100 Oximetry 09/09/20 09/09/20 09/09/20 03:30 03:34 03:40 Temperature 98.9 F Pulse Rate 62 61 Pulse Rate [ From Monitor] Respiratory 30 H 30 H Rate Blood Pressure 111/48 111/50 O2 Sat by Pulse 100 100 Oximetry 09/09/20 09/09/20 09/09/20 03:50 04:00 04:10 Temperature Pulse Rate 62 62 62 Pulse Rate [ 62 From Monitor] Respiratory 30 H 27 H 30 H Rate Blood Pressure 112/50 109/50 108/51 O2 Sat by Pulse 99 98 98 Oximetry 09/09/20 09/09/20 09/09/20 04:20 04:30 04:40 Temperature Pulse Rate 61 61 61 Pulse Rate [ From Monitor] Respiratory 23 20 22 Rate Blood Pressure 110/50 108/50 112/50 O2 Sat by Pulse 99 98 99 Oximetry 09/09/20 09/09/20 09/09/20 04:41 04:50 05:00 Temperature Pulse Rate 61 61 60 Pulse Rate [ From Monitor] Respiratory 20 19 Rate Blood Pressure 112/50 111/50 111/50 O2 Sat by Pulse 100 98 99 Oximetry 09/09/20 09/09/20 09/09/20 05:10 05:20 05:30 Temperature Pulse Rate 60 61 60 Pulse Rate [ From Monitor] Respiratory 21 30 H 27 H Rate Blood Pressure 111/51 111/51 111/51 O2 Sat by Pulse 100 99 100 Oximetry 09/09/20 09/09/20 09/09/20 05:40 05:50 06:00 Temperature Pulse Rate 60 60 61 Pulse Rate [ From Monitor] Respiratory 22 17 26 H Rate Blood Pressure 111/51 118/53 115/55 O2 Sat by Pulse 100 100 100 Oximetry 09/09/20 09/09/20 09/09/20 06:10 06:20 06:30 Temperature Pulse Rate 60 60 61 Pulse Rate [ From Monitor] Respiratory 29 H 23 26 H Rate Blood Pressure 112/50 113/49 115/48 O2 Sat by Pulse 100 99 99 Oximetry 09/09/20 09/09/20 09/09/20 06:40 06:50 07:00 Temperature Pulse Rate 61 60 60 Pulse Rate [ From Monitor] Respiratory 30 H 20 24 Rate Blood Pressure 116/53 113/52 114/53 O2 Sat by Pulse 99 99 100 Oximetry 09/09/20 09/09/20 09/09/20 07:10 07:20 07:30 Temperature Pulse Rate 60 60 60 Pulse Rate [ From Monitor] Respiratory 30 H 26 H 30 H Rate Blood Pressure 114/52 115/52 114/53 O2 Sat by Pulse 99 99 99 Oximetry 09/09/20 09/09/20 09/09/20 07:40 07:50 08:00 Temperature 98.9 F Pulse Rate 60 60 Pulse Rate [ From Monitor] Respiratory 30 H 27 H Rate Blood Pressure 114/51 115/51 O2 Sat by Pulse 99 99 Oximetry 09/09/20 09/09/20 09/09/20 08:08 08:10 08:25 Temperature Pulse Rate 60 60 60 Pulse Rate [ From Monitor] Respiratory 22 30 H Rate Blood Pressure 115/52 114/52 O2 Sat by Pulse 100 99 99 Oximetry Constitutional: comatose, other (morbidly obese) Eyes: non-icteric ENT: other (orally intubated and sedated) Neck: supple Effort: normal Ascultation: Bilateral: diminished breath sounds Percussion: Bilateral: not dull Cardiovascular: other (bradycardic) Gastrointestinal: soft CBC and BMP: 09/09/20 04:20 09/09/20 04:20 ABG, PT/INR, D-dimer: ABG ABG pH 7.449 (7.320-7.450) 09/09/20 03:14 POC ABG pCO2 39.1 mmHg (32.0-48.0) 09/09/20 03:14 POC ABG pO2 148.5 mmHg (83-108) H 09/09/20 03:14 POC ABG HCO3 26.5 09/09/20 03:14 PT/INR, D-dimer PT 21.2 Sec. (12.2-14.9) H 09/08/20 Unknown INR 1.83 (0.87-1.13) H 09/08/20 Unknown D-Dimer 8315.85 ng/mlDDU (0-234) H 09/07/20 14:00 Abnormal lab findings: Abnormal Labs 09/07/20 09/07/20 09/07/20 13:08 14:00 14:00 WBC 15.7 H RBC Hgb 10.2 L Hct 32.5 L MCHC 31 L RDW 17.5 H Lymph % (Auto) [place] % (Auto) Lymph # (Auto) [place] # (Auto) Seg Neutrophils % Seg Neuts % (Manual) 72.0 H Lymphocytes % (Manual) Monocytes % (Manual) 8.0 H Nucleated RBC % Seg Neutrophils # Seg Neutrophils # Man 11.3 H Lymphocytes # (Manual) Monocytes # (Manual) 1.3 H PT INR D-Dimer 8315.85 H ABG pH POC ABG pCO2 POC ABG pO2 ABG Hemoglobin ABG Oxyhemoglobin ABG Sodium ABG Potassium ABG Chloride ABG Glucose Carboxyhemoglobin Potassium Carbon Dioxide BUN Creatinine Glucose POC Glucose Lactic Acid Calcium Phosphorus Ferritin Direct Bilirubin AST ALT Lactate Dehydrogenase Total Creatine Kinase Troponin T Total Protein Albumin Arterial Blood Glucose Arterial Blood Ionized Calcium Urine pH 8.0 H Urine Creatinine Salicylates Acetaminophen Coronavirus (PCR) 09/07/20 09/07/20 09/07/20 14:00 14:00 14:00 WBC RBC Hgb Hct MCHC RDW Lymph % (Auto) [place] % (Auto) Lymph # (Auto) [place] # (Auto) Seg Neutrophils % Seg Neuts % (Manual) Lymphocytes % (Manual) Monocytes % (Manual) Nucleated RBC % Seg Neutrophils # Seg Neutrophils # Man Lymphocytes # (Manual) Monocytes # (Manual) PT INR D-Dimer ABG pH POC ABG pCO2 POC ABG pO2 ABG Hemoglobin ABG Oxyhemoglobin ABG Sodium ABG Potassium ABG Chloride ABG Glucose Carboxyhemoglobin Potassium Carbon Dioxide BUN Creatinine Glucose POC Glucose Lactic Acid 4.30 H* Calcium Phosphorus Ferritin > 2000.0 H Direct Bilirubin AST ALT Lactate Dehydrogenase 882 H Total Creatine Kinase 477 H Troponin T 0.076 H Total Protein Albumin Arterial Blood Glucose Arterial Blood Ionized Calcium Urine pH Urine Creatinine Salicylates Acetaminophen Coronavirus (PCR) 09/07/20 09/07/2009/07/21 14:00 14:00 14:00 WBC RBC Hgb Hct MCHC RDW Lymph % (Auto) [place] % (Auto) Lymph # (Auto) [place] # (Auto) Seg Neutrophils % Seg Neuts % (Manual) Lymphocytes % (Manual) Monocytes % (Manual) Nucleated RBC % Seg Neutrophils # Seg Neutrophils # Man Lymphocytes # (Manual) Monocytes # (Manual) PT INR D-Dimer ABG pH POC ABG pCO2 POC ABG pO2 ABG Hemoglobin ABG Oxyhemoglobin ABG Sodium ABG Potassium ABG Chloride ABG Glucose Carboxyhemoglobin Potassium Carbon Dioxide BUN Creatinine 1.8 H Glucose POC Glucose Lactic Acid Calcium Phosphorus Ferritin Direct Bilirubin AST 310 H ALT 339 H Lactate Dehydrogenase Total Creatine Kinase Troponin T Total Protein Albumin 3.6 L Arterial Blood Glucose Arterial Blood Ionized Calcium Urine pH Urine Creatinine Salicylates < 0.3 L Acetaminophen 5.0 L Coronavirus (PCR) 09/07/20 09/08/20 09/08/20 14:26 04:00 04:17 WBC RBC Hgb Hct MCHC RDW Lymph % (Auto) [place] % (Auto) Lymph # (Auto) [place] # (Auto) Seg Neutrophils % Seg Neuts % (Manual) Lymphocytes % (Manual) Monocytes % (Manual) Nucleated RBC % Seg Neutrophils # Seg Neutrophils # Man Lymphocytes # (Manual) Monocytes # (Manual) PT INR D-Dimer ABG pH 7.037 L 7.095 L POC ABG pCO2 92.4 H 68.0 H POC ABG pO2 130.8 H 43.5 L ABG Hemoglobin 11.3 L 10.6 L ABG Oxyhemoglobin 70.8 L ABG Sodium ABG Potassium 7.0 H ABG Chloride 108.0 H ABG Glucose Carboxyhemoglobin 0.3 L Potassium 8.4 H* D Carbon Dioxide 17 L D BUN 38 H Creatinine 3.9 H D Glucose POC Glucose Lactic Acid Calcium 7.7 L D Phosphorus Ferritin Direct Bilirubin AST ALT Lactate Dehydrogenase Total Creatine Kinase Troponin T Total Protein Albumin Arterial Blood Glucose Arterial Blood Ionized Calcium 4.5 L Urine pH Urine Creatinine Salicylates Acetaminophen Coronavirus (PCR) 09/08/20 09/08/20 09/08/20 05:00 05:25 12:02 WBC RBC Hgb Hct MCHC RDW Lymph % (Auto) [place] % (Auto) Lymph # (Auto) [place] # (Auto) Seg Neutrophils % Seg Neuts % (Manual) Lymphocytes % (Manual) Monocytes % (Manual) Nucleated RBC % Seg Neutrophils # Seg Neutrophils # Man Lymphocytes # (Manual) Monocytes # (Manual) PT INR D-Dimer ABG pH 7.088 L POC ABG pCO2 69.1 H POC ABG pO2 35.2 L ABG Hemoglobin 10.9 L ABG Oxyhemoglobin 57.1 L ABG Sodium ABG Potassium 7.0 H ABG Chloride 108.0 H ABG Glucose Carboxyhemoglobin 0.4 L Potassium 8.1 H* Carbon Dioxide 17 L BUN 38 H Creatinine 3.7 H Glucose POC Glucose Lactic Acid Calcium 8.0 L Phosphorus 8.00 H Ferritin Direct Bilirubin 0.5 H AST 3696 H ALT 3331 H Lactate Dehydrogenase Total Creatine Kinase Troponin T Total Protein Albumin 3.5 L Arterial Blood Glucose Arterial Blood Ionized Calcium 4.4 L Urine pH Urine Creatinine Salicylates Acetaminophen Coronavirus (PCR) 09/08/20 09/08/20 09/08/20 16:31 22:36 Unknown WBC RBC Hgb Hct MCHC RDW Lymph % (Auto) [place] % (Auto) Lymph # (Auto) [place] # (Auto) Seg Neutrophils % Seg Neuts % (Manual) Lymphocytes % (Manual) Monocytes % (Manual) Nucleated RBC % Seg Neutrophils # Seg Neutrophils # Man Lymphocytes # (Manual) Monocytes # (Manual) PT INR D-Dimer ABG pH POC ABG pCO2 POC ABG pO2 ABG Hemoglobin ABG Oxyhemoglobin ABG Sodium ABG Potassium ABG Chloride ABG Glucose Carboxyhemoglobin Potassium 5.3 H D Carbon Dioxide BUN Creatinine Glucose POC Glucose 158 H Lactic Acid Calcium Phosphorus Ferritin Direct Bilirubin AST ALT Lactate Dehydrogenase Total Creatine Kinase Troponin T Total Protein Albumin Arterial Blood Glucose Arterial Blood Ionized Calcium Urine pH Urine Creatinine Salicylates Acetaminophen Coronavirus (PCR) Positive A 09/08/20 09/08/20 09/08/20 Unknown Unknown Unknown WBC 18.4 H RBC Hgb 10.1 L Hct 32.0 L MCHC RDW 18.2 H Lymph % (Auto) [place] % (Auto) Lymph # (Auto) [place] # (Auto) Seg Neutrophils % Seg Neuts % (Manual) 81.0 H Lymphocytes % (Manual) 2.0 L Monocytes % (Manual) Nucleated RBC % 1.0 H Seg Neutrophils # Seg Neutrophils # Man 14.9 H Lymphocytes # (Manual) 0.4 L Monocytes # (Manual) 1.1 H PT 21.2 H INR 1.83 H D-Dimer ABG pH POC ABG pCO2 POC ABG pO2 ABG Hemoglobin ABG Oxyhemoglobin ABG Sodium ABG Potassium ABG Chloride ABG Glucose Carboxyhemoglobin Potassium Carbon Dioxide BUN Creatinine Glucose POC Glucose Lactic Acid Calcium Phosphorus Ferritin Direct Bilirubin AST ALT Lactate Dehydrogenase Total Creatine Kinase Troponin T Total Protein Albumin Arterial Blood Glucose Arterial Blood Ionized Calcium Urine pH Urine Creatinine 182.4 H Salicylates Acetaminophen Coronavirus (PCR) 09/09/20 09/09/20 09/09/20 03:14 04:20 04:20 WBC 16.3 H RBC 3.12 L Hgb 8.6 L Hct 26.8 L MCHC RDW 18.2 H Lymph % (Auto) 6.3 L [place] % (Auto) 8.8 H Lymph # (Auto) 1.0 L [place] # (Auto) 1.4 H Seg Neutrophils % 84.5 H Seg Neuts % (Manual) Lymphocytes % (Manual) Monocytes % (Manual) Nucleated RBC % Seg Neutrophils # 13.7 H Seg Neutrophils # Man Lymphocytes # (Manual) Monocytes # (Manual) PT INR D-Dimer ABG pH POC ABG pCO2 POC ABG pO2 148.5 H ABG Hemoglobin 9.4 L ABG Oxyhemoglobin 98.8 H ABG Sodium 134.8 L ABG Potassium 5.0 H ABG Chloride ABG Glucose 222 H Carboxyhemoglobin 0.1 L Potassium 5.2 H Carbon Dioxide BUN 47 H Creatinine 4.3 H Glucose 211 H POC Glucose Lactic Acid Calcium 7.4 L Phosphorus Ferritin Direct Bilirubin AST 04496 H ALT 6206 H Lactate Dehydrogenase Total Creatine Kinase Troponin T Total Protein 5.6 L Albumin 3.0 L Arterial Blood Glucose 222 H Arterial Blood Ionized Calcium 3.8 L Urine pH Urine Creatinine Salicylates Acetaminophen Coronavirus (PCR)
[2020-09-09] MEDS ORDERED: SIMPLE SYRUP 15 ML FEEDTUBE PRN (09:40)
[2020-09-09] MEDS ORDERED: FAMOTIDINE 20 MG/2 ML INJ IV SCH (10:00)
[2020-09-09] MEDS: dexAMETHasone 4 MG/ML VIAL IV SCH (10:09)
[2020-09-09] MEDS: LORazepam 2 MG/ML VIAL IV PRN ×3 (10:43→22:46)
--- NOTE | 2020-09-09 11:11 | Gastroenterology Progress Note ---
Assessment and Plan - Patient Problems (1) COVID-19 Current Visit: Yes Status: Acute (2) Transaminitis Current Visit: Yes Status: Acute Plan to address problem: - Serologies negative so far, and likely acute ischemic injury; he is COVID positive, and unclear if he was taking excess tylenol at home, but outside the window for Acetadote at present. - Will get RUQ US, and agree with monitoring INR serially to assess hepatic function. - OK to begin OG feeds, as nutrition may aid in liver recovery; will add MVI as well. - Will d/c tylenol PRN order; if needed for fevers, low-dose ibuprofen is acceptable. - With active COVID, not a candidate for liver transplant evaluation even if severe decompensation, eliezer with severe pulmonary compromise. Subjective Date of service: 09/09/20 Principal diagnosis: Abnormal LFTs Interval history: The patient remains on the Vent, on pressors, s/p HD. Oozing from catheter sites noted. Objective - Constitutional Vitals: Temp Pulse Resp BP Pulse Ox 98.9 F 60 30 H 114/52 99 09/09/20 08:00 09/09/20 08:25 09/09/20 08:10 09/09/20 08:25 09/09/20 08:25 General appearance: no acute distress - EENT ENT: other (ET/OG tubes) - Neck Neck: supple, normal ROM - Respiratory Respiratory effort: normal Respiratory: bilateral: CTA (Vent) - Cardiovascular Heart Rate: 110 Rhythm: regular Heart Sounds: Present: S1 & S2 - Gastrointestinal General gastrointestinal: Present: soft, non-tender, non-distended - Labs CBC & Chem 7: 09/09/20 04:20 09/09/20 04:20 Labs: Laboratory Results - last 24 hr 09/08/20 09/08/20 09/08/20 04:00 05:00 12:02 WBC RBC Hgb Hct MCV MCH MCHC RDW Plt Count Lymph % (Auto) Maries % (Auto) Eos % (Auto) Baso % (Auto) Lymph # (Auto) Maries # (Auto) Eos # (Auto) Baso # (Auto) Add Manual Diff Total Counted Seg Neutrophils % Seg Neuts % (Manual) Band Neutrophils % Lymphocytes % (Manual) Monocytes % (Manual) Metamyelocytes % Nucleated RBC % Seg Neutrophils # Seg Neutrophils # Man Band Neutrophils # Lymphocytes # (Manual) Abs React Lymphs (Man) Monocytes # (Manual) Eosinophils # (Manual) Basophils # (Manual) Metamyelocytes # Myelocytes # Promyelocytes # Blast Cells # WBC Morphology Hypersegmented Neuts Hyposegmented Neuts Hypogranular Neuts Smudge Cells Toxic Granulation Toxic Vacuolation Dohle Bodies Pelger-Huet Anomaly Justus Rods Platelet Estimate Clumped Platelets Plt Clumps, EDTA Large Platelets Giant Platelets Platelet Satelliting Plt Morphology Comment RBC Morphology Dimorphic RBCs Polychromasia Hypochromasia Poikilocytosis Anisocytosis Microcytosis Macrocytosis Spherocytes Pappenheimer Bodies Sickle Cells Target Cells Tear Drop Cells Ovalocytes Helmet Cells Batres[place] Bodies [place] Rings [place] Cells Bite Cells Crenated Cell Elliptocytes Acanthocytes (Spur) Rouleaux Hemoglobin C Crystals Schistocytes Malaria parasites Tommie Bodies Hem Pathologist Commnt PT INR ABG pH POC ABG pCO2 POC ABG pO2 POC ABG HCO3 POC ABG Base Excess ABG Hemoglobin ABG Oxyhemoglobin ABG Methemoglobin ABG Sodium ABG Potassium ABG Chloride ABG Glucose Carboxyhemoglobin FiO2 Sodium 141 142 Potassium 8.4 H* D 8.1 H* Chloride 105.0 106.3 Carbon Dioxide 17 L D 17 L Anion Gap 27 27 BUN 38 H 38 H Creatinine 3.9 H D 3.7 H Estimated GFR 19 20 BUN/Creatinine Ratio 10 10 Glucose 86 92 POC Glucose Calcium 7.7 L D 8.0 L Phosphorus 8.00 H Magnesium 1.80 Total Bilirubin 1.00 Direct Bilirubin 0.5 H Indirect Bilirubin 0.5 AST 3696 H ALT 3331 H Alkaline Phosphatase 91 Total Protein 6.5 Albumin 3.5 L Albumin/Globulin Ratio 1.2 Arterial Blood Glucose Arterial Blood Ionized Calcium Urine Creatinine Urine Sodium Coronavirus (PCR) 09/08/20 09/08/20 09/08/20 12:18 16:31 22:36 WBC RBC Hgb Hct MCV MCH MCHC RDW Plt Count Lymph % (Auto) [place] % (Auto) Eos % (Auto) Baso % (Auto) Lymph # (Auto) [place]ies # (Auto) Eos # (Auto) Baso # (Auto) Add Manual Diff Total Counted Seg Neutrophils % Seg Neuts % (Manual) Band Neutrophils % Lymphocytes % (Manual) Monocytes % (Manual) Metamyelocytes % Nucleated RBC % Seg Neutrophils # Seg Neutrophils # Man Band Neutrophils # Lymphocytes # (Manual) Abs React Lymphs (Man) Monocytes # (Manual) Eosinophils # (Manual) Basophils # (Manual) Metamyelocytes # Myelocytes # Promyelocytes # Blast Cells # WBC Morphology Hypersegmented Neuts Hyposegmented Neuts Hypogranular Neuts Smudge Cells Toxic Granulation Toxic Vacuolation Dohle Bodies Pelger-Huet Anomaly Justus Rods Platelet Estimate Clumped Platelets Plt Clumps, EDTA Large Platelets Giant Platelets Platelet Satelliting Plt Morphology Comment RBC Morphology Dimorphic RBCs Polychromasia Hypochromasia Poikilocytosis Anisocytosis Microcytosis Macrocytosis Spherocytes Pappenheimer Bodies Sickle Cells Target Cells Tear Drop Cells Ovalocytes Helmet Cells Batres-[place] Bodies [place] Rings Manjit Cells Bite Cells Crenated Cell Elliptocytes Acanthocytes (Spur) Rouleaux Hemoglobin C Crystals Schistocytes Malaria parasites [place] Bodies Hem Pathologist Commnt PT INR ABG pH POC ABG pCO2 POC ABG pO2 POC ABG HCO3 POC ABG Base Excess ABG Hemoglobin ABG Oxyhemoglobin ABG Methemoglobin ABG Sodium ABG Potassium ABG Chloride ABG Glucose Carboxyhemoglobin FiO2 Sodium Potassium 5.3 H D Chloride Carbon Dioxide Anion Gap BUN Creatinine Estimated GFR BUN/Creatinine Ratio Glucose POC Glucose 92 158 H Calcium Phosphorus Magnesium Total Bilirubin Direct Bilirubin Indirect Bilirubin AST ALT Alkaline Phosphatase Total Protein Albumin Albumin/Globulin Ratio Arterial Blood Glucose Arterial Blood Ionized Calcium Urine Creatinine Urine Sodium Coronavirus (PCR) 09/08/20 09/08/20 09/08/20 Unknown Unknown Unknown WBC 18.4 H RBC 3.67 Hgb 10.1 L Hct 32.0 L MCV 87 MCH 28 MCHC 32 RDW 18.2 H Plt Count 178 Lymph % (Auto) Maries % (Auto) Eos % (Auto) Baso % (Auto) Lymph # (Auto) Maries # (Auto) Eos # (Auto) Baso # (Auto) Add Manual Diff Complete Total Counted 100 Seg Neutrophils % Seg Neuts % (Manual) 81.0 H Band Neutrophils % 9.0 Lymphocytes % (Manual) 2.0 L Monocytes % (Manual) 6.0 Metamyelocytes % 2.0 Nucleated RBC % 1.0 H Seg Neutrophils # Seg Neutrophils # Man 14.9 H Band Neutrophils # 1.7 Lymphocytes # (Manual) 0.4 L Abs React Lymphs (Man) 0.0 Monocytes # (Manual) 1.1 H Eosinophils # (Manual) 0.0 Basophils # (Manual) 0.0 Metamyelocytes # 0.4 Myelocytes # 0.0 Promyelocytes # 0.0 Blast Cells # 0.0 WBC Morphology Not Reportable Hypersegmented Neuts Not Reportable Hyposegmented Neuts Not Reportable Hypogranular Neuts Not Reportable Smudge Cells Not Reportable Toxic Granulation Not Reportable Toxic Vacuolation Not Reportable Dohle Bodies Not Reportable Pelger-Huet Anomaly Not Reportable Justus Rods Not Reportable Platelet Estimate Consistent w auto Clumped Platelets Not Reportable Plt Clumps, EDTA Not Reportable Large Platelets Not Reportable Giant Platelets Not Reportable Platelet Satelliting Not Reportable Plt Morphology Comment Not Reportable RBC Morphology Not Reportable Dimorphic RBCs Not Reportable Polychromasia Not Reportable Hypochromasia Not Reportable Poikilocytosis Not Reportable Anisocytosis 1+ Microcytosis Not Reportable Macrocytosis Not Reportable Spherocytes Not Reportable Pappenheimer Bodies Not Reportable Sickle Cells Not Reportable Target Cells Not Reportable Tear Drop Cells Not Reportable Ovalocytes Not Reportable Helmet Cells Not Reportable Batres-[place] Bodies Not Reportable [place] Rings Not Reportable Manjit Cells Not Reportable Bite Cells Not Reportable Crenated Cell Not Reportable Elliptocytes Not Reportable Acanthocytes (Spur) Not Reportable Rouleaux Not Reportable Hemoglobin C Crystals Not Reportable Schistocytes Not Reportable Malaria parasites Not Reportable [place] Bodies Not Reportable Hem Pathologist Commnt No PT 21.2 H INR 1.83 H ABG pH POC ABG pCO2 POC ABG pO2 POC ABG HCO3 POC ABG Base Excess ABG Hemoglobin ABG Oxyhemoglobin ABG Methemoglobin ABG Sodium ABG Potassium ABG Chloride ABG Glucose Carboxyhemoglobin FiO2 Sodium Potassium Chloride Carbon Dioxide Anion Gap BUN Creatinine Estimated GFR BUN/Creatinine Ratio Glucose POC Glucose Calcium Phosphorus Magnesium Total Bilirubin Direct Bilirubin Indirect Bilirubin AST ALT Alkaline Phosphatase Total Protein Albumin Albumin/Globulin Ratio Arterial Blood Glucose Arterial Blood Ionized Calcium Urine Creatinine Urine Sodium Coronavirus (PCR) Positive A 09/08/20 09/09/20 09/09/20 Unknown 03:14 04:20 WBC 16.3 H RBC 3.12 L Hgb 8.6 L Hct 26.8 L MCV 86 MCH 28 MCHC 32 RDW 18.2 H Plt Count 140 Lymph % (Auto) 6.3 L Maries % (Auto) 8.8 H Eos % (Auto) 0.2 Baso % (Auto) 0.2 Lymph # (Auto) 1.0 L Maries # (Auto) 1.4 H Eos # (Auto) 0.0 Baso # (Auto) 0.0 Add Manual Diff Total Counted Seg Neutrophils % 84.5 H Seg Neuts % (Manual) Band Neutrophils % Lymphocytes % (Manual) Monocytes % (Manual) Metamyelocytes % Nucleated RBC % Seg Neutrophils # 13.7 H Seg Neutrophils # Man Band Neutrophils # Lymphocytes # (Manual) Abs React Lymphs (Man) Monocytes # (Manual) Eosinophils # (Manual) Basophils # (Manual) Metamyelocytes # Myelocytes # Promyelocytes # Blast Cells # WBC Morphology Hypersegmented Neuts Hyposegmented Neuts Hypogranular Neuts Smudge Cells Toxic Granulation Toxic Vacuolation Dohle Bodies Pelger-Huet Anomaly Justus Rods Platelet Estimate Clumped Platelets Plt Clumps, EDTA Large Platelets Giant Platelets Platelet Satelliting Plt Morphology Comment RBC Morphology Dimorphic RBCs Polychromasia Hypochromasia Poikilocytosis Anisocytosis Microcytosis Macrocytosis Spherocytes Pappenheimer Bodies Sickle Cells Target Cells Tear Drop Cells Ovalocytes Helmet Cells Batres[place] Bodies [place] Rings Manjit Cells Bite Cells Crenated Cell Elliptocytes Acanthocytes (Spur) Rouleaux Hemoglobin C Crystals Schistocytes Malaria parasites [place]mie Bodies Hem Pathologist Commnt PT INR ABG pH 7.449 POC ABG pCO2 39.1 POC ABG pO2 148.5 H POC ABG HCO3 26.5 POC ABG Base Excess 2.4 ABG Hemoglobin 9.4 L ABG Oxyhemoglobin 98.8 H ABG Methemoglobin 0.3 ABG Sodium 134.8 L ABG Potassium 5.0 H ABG Chloride 102.0 ABG Glucose 222 H Carboxyhemoglobin 0.1 L FiO2 100 Sodium Potassium Chloride Carbon Dioxide Anion Gap BUN Creatinine Estimated GFR BUN/Creatinine Ratio Glucose POC Glucose Calcium Phosphorus Magnesium Total Bilirubin Direct Bilirubin Indirect Bilirubin AST ALT Alkaline Phosphatase Total Protein Albumin Albumin/Globulin Ratio Arterial Blood Glucose 222 H Arterial Blood Ionized Calcium 3.8 L Urine Creatinine 182.4 H Urine Sodium 40 Coronavirus (PCR) 09/09/20 04:20 WBC RBC Hgb Hct MCV MCH MCHC RDW Plt Count Lymph % (Auto) Maries % (Auto) Eos % (Auto) Baso % (Auto) Lymph # (Auto) Maries # (Auto) Eos # (Auto) Baso # (Auto) Add Manual Diff Total Counted Seg Neutrophils % Seg Neuts % (Manual) Band Neutrophils % Lymphocytes % (Manual) Monocytes % (Manual) Metamyelocytes % Nucleated RBC % Seg Neutrophils # Seg Neutrophils # Man Band Neutrophils # Lymphocytes # (Manual) Abs React Lymphs (Man) Monocytes # (Manual) Eosinophils # (Manual) Basophils # (Manual) Metamyelocytes # Myelocytes # Promyelocytes # Blast Cells # WBC Morphology Hypersegmented Neuts Hyposegmented Neuts Hypogranular Neuts Smudge Cells Toxic Granulation Toxic Vacuolation Dohle Bodies Pelger-Huet Anomaly Justus Rods Platelet Estimate Clumped Platelets Plt Clumps, EDTA Large Platelets Giant Platelets Platelet Satelliting Plt Morphology Comment RBC Morphology Dimorphic RBCs Polychromasia Hypochromasia Poikilocytosis Anisocytosis Microcytosis Macrocytosis Spherocytes Pappenheimer Bodies Sickle Cells Target Cells Tear Drop Cells Ovalocytes Helmet Cells Batres-[place] Bodies [place] Rings Manjit Cells Bite Cells Crenated Cell Elliptocytes Acanthocytes (Spur) Rouleaux Hemoglobin C Crystals Schistocytes Malaria parasites [place] Bodies Hem Pathologist Commnt PT INR ABG pH POC ABG pCO2 POC ABG pO2 POC ABG HCO3 POC ABG Base Excess ABG Hemoglobin ABG Oxyhemoglobin ABG Methemoglobin ABG Sodium ABG Potassium ABG Chloride ABG Glucose Carboxyhemoglobin FiO2 Sodium 138 Potassium 5.2 H Chloride 99.3 Carbon Dioxide 24 D Anion Gap 20 BUN 47 H Creatinine 4.3 H Estimated GFR 17 BUN/Creatinine Ratio 11 Glucose 211 H POC Glucose Calcium 7.4 L Phosphorus Magnesium Total Bilirubin 0.90 Direct Bilirubin Indirect Bilirubin AST 30836 H ALT 6206 H Alkaline Phosphatase 86 Total Protein 5.6 L Albumin 3.0 L Albumin/Globulin Ratio 1.2 Arterial Blood Glucose Arterial Blood Ionized Calcium Urine Creatinine Urine Sodium Coronavirus (PCR)
[2020-09-09 11:29] LABS: INR 1.9 (0.87-1.13); Partial Thromboplastin Time 32.4 Sec. (24.2-36.6)
[2020-09-09] MEDS ORDERED: DESMOPRESSIN ACETATE 20 MCG in SODIUM CHLORIDE 0.9% 50 ML IV ONE (11:38)
[2020-09-09] MEDS: MULTIVITAMINS 5 ML ORAL LIQUID PO SCH (12:15)
--- NOTE | 2020-09-09 12:34 | Progress Note ---
Assessment and Plan Cultures: Blood culture 09/07/2020 no growth SARS CoV2 PCR positive 09/07/2020 urine culture: No growth HIV, hepatitis panel: Negative Assessment: 65 years old male with unknown medical history, morbidly obese, brought to the ED by EMS on 09/07/2020 secondary to passing out, found in out of hospital cardiac arrest status post resuscitation, intubated in the field: #[id number] cardiac arrest/shock #Bilateral pneumonia secondary to COVID-19 infection. Inflammatory markers elevated. D-dimer was 8315. #Acute hypoxic respiratory failure: on the vent. #Acute renal failure: Creatinine worsening. Likely secondary to cardiac arrest/COVID-19 infection #Shock liver, transaminitis: Viral hepatitis panel negative. #Acute Encephalopathy: Initial GCS 3, noted myoclonic jerking.? Anoxic brain injury. CT of the head unremarkable. Recs: -Not a candidate for remdesivir due to hepatic and renal failure -Continue steroids for COVID-19 -Continue empiric azithromycin, ceftriaxone -Guarded prognosis Marisol Stock MD, FACP [facility], [place], [facility] O: [phone] F: [phone] Subjective Date of service: 09/09/20 Principal diagnosis: Abnormal LFTs Interval history: No fever. Remains on the vent. COVID-19 PCR: Positive Objective - Exam Narrative Exam: Physical Exam (reviewed in chart to minimize risk of transmission) Constitutional: deferred Head, Ears, Nose: deferred Eyes: deferred Neck: deferred Oral: deferred Cardiovascular: deferred Respiratory: deferred GI: deferred Musculoskeletal: deferred Skin: deferred Hem/Lymphatic: deferred Psych: deferred Neurological: deferred - Constitutional Vitals: Vital Signs Temp Pulse Resp BP Pulse Ox 98.9 F 57 L 14 129/60 100 09/09/20 08:00 09/09/20 11:50 09/09/20 11:50 09/09/20 11:50 09/09/20 11:50 Temperature -Last 24 Hours Temperature 98.9 F Temperature 98.9 F Temperature 98.8 F Temperature 99.8 F Temperature 99 F Temperature 98.8 F Temperature 99 F - Labs CBC & Chem 7: 09/09/20 04:20 09/09/20 04:20 Labs: Abnormal lab results 09/08/20 09/08/20 09/08/20 Range/Units 12:02 16:31 22:36 WBC (4.5-11.0) K/mm3 RBC (3.65-5.03) M/mm3 Hgb (11.8-15.2) gm/dl Hct (35.5-45.6) % RDW (13.2-15.2) % Lymph % (Auto) (13.4-35.0) % [place] % (Auto) (0.0-7.3) % Lymph # (Auto) (1.2-5.4) K/mm3 [place] # (Auto) (0.0-0.8) K/mm3 Seg Neutrophils % (40.0-70.0) % Seg Neutrophils # (1.8-7.7) K/mm3 PT (12.2-14.9) Sec. INR (0.87-1.13) POC ABG pO2 (83-108) mmHg ABG Hemoglobin (12.0-17.5) ABG Oxyhemoglobin (94-98) ABG Sodium (136.0-145.0) mmol/L ABG Potassium (3.40-4.50) mmol/L ABG Glucose (65-95) mg/dL Carboxyhemoglobin (0.5-1.5) Potassium 8.1 H* 5.3 H D (3.6-5.0) mmol/L Carbon Dioxide 17 L (22-30) mmol/L BUN 38 H (9-20) mg/dL Creatinine 3.7 H (0.8-1.3) mg/dL Glucose (75-100) mg/dL POC Glucose 158 H (70-105) mg/dL Calcium 8.0 L (8.4-10.2) mg/dL Phosphorus 8.00 H (2.5-4.5) mg/dL AST (5-40) units/L ALT (7-56) units/L Total Protein (6.3-8.2) g/dL Albumin (3.9-5) g/dL Arterial Blood Glucose (65-95) mg/dL Arterial Blood Ionized Calcium (4.6-5.3) mg/dL Urine Creatinine (0.1-20.0) mg/dL Coronavirus (PCR) (Negative) 09/08/20 09/08/20 09/09/20 Range/Units Unknown Unknown 03:14 WBC (4.5-11.0) K/mm3 RBC (3.65-5.03) M/mm3 Hgb (11.8-15.2) gm/dl Hct (35.5-45.6) % RDW (13.2-15.2) % Lymph % (Auto) (13.4-35.0) % [place] % (Auto) (0.0-7.3) % Lymph # (Auto) (1.2-5.4) K/mm3 [place] # (Auto) (0.0-0.8) K/mm3 Seg Neutrophils % (40.0-70.0) % Seg Neutrophils # (1.8-7.7) K/mm3 PT (12.2-14.9) Sec. INR (0.87-1.13) POC ABG pO2 148.5 H (83-108) mmHg ABG Hemoglobin 9.4 L (12.0-17.5) ABG Oxyhemoglobin 98.8 H (94-98) ABG Sodium 134.8 L (136.0-145.0) mmol/L ABG Potassium 5.0 H (3.40-4.50) mmol/L ABG Glucose 222 H (65-95) mg/dL Carboxyhemoglobin 0.1 L (0.5-1.5) Potassium (3.6-5.0) mmol/L Carbon Dioxide (22-30) mmol/L BUN (9-20) mg/dL Creatinine (0.8-1.3) mg/dL Glucose (75-100) mg/dL POC Glucose (70-105) mg/dL Calcium (8.4-10.2) mg/dL Phosphorus (2.5-4.5) mg/dL AST (5-40) units/L ALT (7-56) units/L Total Protein (6.3-8.2) g/dL Albumin (3.9-5) g/dL Arterial Blood Glucose 222 H (65-95) mg/dL Arterial Blood Ionized Calcium 3.8 L (4.6-5.3) mg/dL Urine Creatinine 182.4 H (0.1-20.0) mg/dL Coronavirus (PCR) Positive A (Negative) 09/09/20 09/09/20 09/09/20 Range/Units 04:20 04:20 10:00 WBC 16.3 H (4.5-11.0) K/mm3 RBC 3.12 L (3.65-5.03) M/mm3 Hgb 8.6 L (11.8-15.2) gm/dl Hct 26.8 L (35.5-45.6) % RDW 18.2 H (13.2-15.2) % Lymph % (Auto) 6.3 L (13.4-35.0) % [place] % (Auto) 8.8 H (0.0-7.3) % Lymph # (Auto) 1.0 L (1.2-5.4) K/mm3 [place] # (Auto) 1.4 H (0.0-0.8) K/mm3 Seg Neutrophils % 84.5 H (40.0-70.0) % Seg Neutrophils # 13.7 H (1.8-7.7) K/mm3 PT 21.7 H (12.2-14.9) Sec. INR 1.90 H (0.87-1.13) POC ABG pO2 (83-108) mmHg ABG Hemoglobin (12.0-17.5) ABG Oxyhemoglobin (94-98) ABG Sodium (136.0-145.0) mmol/L ABG Potassium (3.40-4.50) mmol/L ABG Glucose (65-95) mg/dL Carboxyhemoglobin (0.5-1.5) Potassium 5.2 H (3.6-5.0) mmol/L Carbon Dioxide (22-30) mmol/L BUN 47 H (9-20) mg/dL Creatinine 4.3 H (0.8-1.3) mg/dL Glucose 211 H (75-100) mg/dL POC Glucose (70-105) mg/dL Calcium 7.4 L (8.4-10.2) mg/dL Phosphorus (2.5-4.5) mg/dL AST 91534 H (5-40) units/L ALT 6206 H (7-56) units/L Total Protein 5.6 L (6.3-8.2) g/dL Albumin 3.0 L (3.9-5) g/dL Arterial Blood Glucose (65-95) mg/dL Arterial Blood Ionized Calcium (4.6-5.3) mg/dL Urine Creatinine (0.1-20.0) mg/dL Coronavirus (PCR) (Negative) - Imaging and cardiology Chest x-ray: report reviewed, image reviewed (b/l infiltrates. ET tube +)
--- NOTE | 2020-09-09 12:52 | Consultation ---
History of Present Illness - Reason for Consult Consult date: 09/09/20 acute renal failure, hyperkalemia - History of Present Illness History obtained from records 65-year-old male brought into the emergency room today by EMS for cardiopulmonary arrest. Patient was said to be awaiting a Covid test when he passed out. CPR was started and also patient was defibrillated once. CPR was continued on the field by EMS and patient had a spontaneous return of circulation. Upon arrival in the emergency room patient had been receiving bag valve mask ventilation through a Dayron airway. He was tachycardic and was subsequently intubated in the emergency room. Most of the history was obtained from the ER staff as patient is already intubated. Work-up in the emergency room today chest x-ray reveals:Bilateral airspace disease which could be related to alveolar edema or infection. CT scan of the head was unremarkable. Patient could not had a CT angiogram because of his size. Patient is being admitted for cardiopulmonary arrest and also possible Covid pneumonia. Past History Past Medical History: other (Unobtainable) Past Surgical History: Other (Unobtainable) Social history: other (Unobtainable) Family history: other (Unobtainable) Medications and Allergies Allergies Allergy/AdvReac Type Severity Reaction Status Date / Time Unable to Assess Allergy Verified 09/07/20 13:43 Active Meds: Active Medications Lipase/Protease/Amylase (Lipase 10,500/Protease 25,000/Amylase 43,750 (Units) Dr Geovany) 1 each FEEDTUBE PRN PRN PRN Reason: For Clogged Feeding Tube Dexamethasone (Dexamethasone 4 Mg/Ml Vial) 6 mg IV Q24HR [facility] Stop: 09/16/20 10:01 Last Admin: 09/09/20 10:09 Dose: 6 mg Documented by: Fentanyl (Fentanyl 100 Mcg/2 Ml Inj) 50 mcg IV Q10MIN PRN PRN Reason: ANALGESIA Last Admin: 09/07/20 19:26 Dose: 50 mcg Documented by: Hydrophilic Ointment (Lip Therapy Vaseline) 1 applic TP Q2HR PRN PRN Reason: Dry Lips Ceftriaxone Sodium (Rocephin/Ns 2 Gm/100 Ml) 2 gm in 100 mls @ 200 mls/hr IV Q24H [facility]AYL[facility]; Protocol Last Infusion: 09/08/20 19:47 Dose: Infused Documented by: Azithromycin (Zithromax/Ns) 500 mg in 250 mls @ 250 mls/hr IV Q24H [facility]; Protocol Last Infusion: 09/08/20 19:47 Dose: Infused Documented by: Sodium Chloride (Nacl 0.9% 1000 Ml) 1,000 mls @ 110 mls/hr IV DIRECT TAYLOR Last Infusion: 09/08/20 19:46 Dose: Infused Documented by: Norepinephrine (Levophed Drip 4 Mg/Ns 250 Ml) 4 mg in 250 mls @ 7.5 mls/hr IV TITR TAYLOR; Protocol Last Titration: 09/08/20 12:00 Dose: 0 mcg/min, 0 mls/hr Documented by: Lorazepam 100 mg/ Sodium Chloride/ Miscellaneous Information 100 mls @ 1 mls/hr IV TITR TAYLOR; Protocol Last Titration: 09/09/20 04:19 Dose: 1 mg/hr, 1 mls/hr Documented by: Vasopressin 20 unit/ Sodium (Chloride) 101 mls @ 9.09 mls/hr IV TITR TAYLOR; Protocol Last Titration: 09/08/20 08:43 Dose: 0 units/min, 0 mls/hr Documented by: Sodium Bicarbonate 150 meq/ (Dextrose) 1,150 mls @ 75 mls/hr IV DIRECT T[facility]LOR Last Admin: 09/09/20 03:56 Dose: 75 mls/hr Documented by: Sodium Chloride (Nacl 0.9%) 100 mls @ 999 mls/hr IV JAYJAY PRN PRN Reason: Hypotension Propofol (Diprivan 10 Mg/Ml) 1,000 mg in 100 mls @ 4.995 mls/hr IV TITR TAYLOR; Pr otocol Last Admin: 09/09/20 10:39 Dose: 20 mcg/kg/min, 19.98 mls/hr Documented by: Ibuprofen (Ibuprofen 400 Mg Tab) 400 mg PO Q6H PRN PRN Reason: Pain, Mild (1-3) Lorazepam (Lorazepam 2 Mg/Ml Vial) 2 mg IV Q4H PRN PRN Reason: Seizures Last Admin: 09/09/20 10:43 Dose: 2 mg Documented by: Lorazepam (Lorazepam 2 Mg/Ml Vial) 2 mg IV Q10MIN PRN PRN Reason: Agitation Morphine Sulfate (Morphine 2 Mg/1 Ml Inj) 2 mg IV Q4H PRN PRN Reason: Pain, Moderate (4-6) Multi-Ingred Cream/Lotion/Oil/Oint (Mineral Oil/Petrolatum, White Ophth Oint 3.5 Gm) 1 applic OU Q4HR PRN PRN Reason: Dry Eye(s) Multivitamins (Multivitamins 5 Ml Oral Liquid) 5 ml PO QDAY [facility] Ondansetron HCl (Ondansetron 4 Mg/2 Ml Inj) 4 mg IV Q8H PRN PRN Reason: Nausea And Vomiting Pantoprazole Sodium (Pantoprazole 40 Mg Inj) 40 mg IV BID [facility]OR Simple Syrup (Simple Syrup 15 Ml) 15 ml FEEDTUBE PRN PRN PRN Reason: Hypoglycemia Simple Syrup (Simple Syrup 15 Ml) 30 ml FEEDTUBE PRN PRN PRN Reason: Hypoglycemia Sodium Bicarbonate (Sodium Bicarbonate 325 Mg Tab) 325 mg FEEDTUBE PRN PRN PRN Reason: For Clogged Feeding Tube Sodium Chloride (Sodium Chloride 0.9% 10 Ml Flush Syringe) 10 ml IV BID [facility] Last Admin: 09/09/20 10:09 Dose: 10 ml Documented by: Sodium Chloride (Sodium Chloride 0.9% 10 Ml Flush Syringe) 10 ml IV PRN PRN PRN Reason: LINE FLUSH Review of Systems ROS unobtainable: due to endotracheal tube Exam - Vital Signs Vital signs: Vital Signs Pulse BP Pulse Ox 82 197/91 92 09/07/20 13:00 09/07/20 13:00 09/07/20 13:00 - General Appearance General appearance: well-developed, well-nourished, intubated EENT: ATNC, other (ETT in place) Respiratory: Other (Bilateral rhonchi) Heart: regular, S1S2 Gastrointestinal: Present: normal, obese. Absent: tenderness, distended Integumentary: warm and dry Musculoskeletal: Present: other (no edema) Psychiatric: cooperative Results - Lab Results 09/10/20 04:05 09/10/20 04:00 Most recent lab results ABG pH 7.449 (7.320-7.450) 09/09/20 03:14 Calcium 7.4 mg/dL (8.4-10.2) L 09/09/20 04:20 Phosphorus 8.00 mg/dL (2.5-4.5) H 09/08/20 12:02 Magnesium 1.80 mg/dL (1.7-2.3) 09/08/20 12:02 Urine Creatinine 182.4 mg/dL (0.1-20.0) H 09/08/20 Unknown Urine Sodium 40 mmol/L 09/08/20 Unknown Assessment and Plan Impression: * Nonoliguric RYAN secondary to ATN * Severe hyperkalemia * COVID 19 PNA * s/p OOH cardiac arrest * Acute hypoxic respiratory failure * Seizure activity * Anemia Plan: * Patient is s/p emergent HD yesterday for hyperkalemia. K has improved but is mildly elevated today. Will plan for hemomdialysis today - no fluid removal as UOP has increased * Vent management per CCM * Steroids per primary team/ID * Dose medications for renal function * Avoid potential nephrotoxins
[2020-09-09] MEDS ORDERED: SODIUM CHLORIDE 0.9% 100 ML IV PRN (13:36)
--- NOTE | 2020-09-09 14:25 | Event Note ---
Date: 09/09/20 Late entry: 65 year old male with multi organ system failure with acute renal failure with left CFV trialysis placement. Contacted due to bleeding from left CFV trialysis line. Asked to have sandbag placed at the site, but no sandbag was available per nursing/data warehouse specialist. Patient is coagulopathic, likely cause of bleeding. Ordered DDAVP. Despite pressure being held by nursing staff for prolonged period and subsequent dressing application with some compression applied, bleeding persisted. Came to bedside and evaluated the area. After removing the bandages and cleaning the area, I used ultrasound and confirmed catheter was venous and evaluated central PICC lumen and venous bleeding was verified. The venotomy was slightly enlarged and there was bleeding directly from the tissue along the skin edge at the venotomy site. After cleaning the area with chlorprep, I used a 3-0 silk to apply two simple interrupted sutures and closed the skin edge. After this was performed, there was no further bleeding. I waited 5 minutes, and there was no further bleeding. The area was prepped and cleaned in a sterile fashion and new sterile dressing was applied. I then applied a sandbag and asked the nurse to remove in 10 minutes to ensure hemostasis, as much as possible.
[2020-09-09] MEDS: cefTRIAXone/NS 2 GM/100 ML 2 GM/100 ML BAG IV SCH (15:59)
[2020-09-09] MEDS: AZITHROMYCIN/NS 500 MG/250 ML 500 MG/250 ML BAG IV SCH (18:03)
[2020-09-09] MEDS: PANTOPRAZOLE 40 MG INJ IV SCH (21:01)
--- NOTE | 2020-09-09 21:46 | Progress Note ---
Assessment and Plan Critical care statement The high probability OF a clinically significant sudden or life-threatening deterioration of the cardiorespiratory system and endocrine system required my full and direct attention, intervention and postoperative management. The aggregate critical care time was 35 minutes. The time is in addition to time spent performing reported procedures but includes the followin: Data review and interpretation 2: Patient assessment and monitoring of vital signs 3: Documentation 4:: Medication orders and management Assessment and Plan - Patient Problems --Cardiac arrest Current Visit: Yes Status: Acute Plan to address problem: Patient currently intubated and sedated. Admitted into the intensive care unit. Brushing Operator has been consulted for evaluation. --Respiratory acidosis Current Visit: Yes Status: Acute Plan to address problem: Secondary to the underlying pneumonia. Will monitor ABG. --Hyperkalemia Improved Emergent hemodialysis was done --Suspected 2019 novel coronavirus infection Current Visit: Yes Status: Acute Plan to address problem: Patient placed on isolation precautions. He has been started on empiric IV antibiotics. Consult placed to infectious disease for evaluation. We will await COVID-19 testing. --Transaminitis Current Visit: Yes Status: Acute Plan to address problem: Possibly secondary to COVID-19 pneumonia. We will monitor LFTs. We will also check hepatitis profile. We also place consult to gastroenterology for evaluation. --Morbid obesity Current Visit: Yes Status: Acute Plan to address problem: We will get dietary consult. --DVT prophylaxis Current Visit: Yes Status: Acute Plan to address problem: Patient placed on subcutaneous Lovenox. --Full code status Current Visit: Yes Status: Acute Plan to address problem: Patient is a full code. We will attempt to get further information from family. Critical care time spent is40 minutes Subjective Date of service: 09/09/20 Principal diagnosis: S/p cardiac arrest, ischemic liver injury, transaminitis, Covid pneumonia Interval history: 65-year-old male brought into the emergency room today by EMS for cardiopulmonary arrest. Patient was said to be awaiting a Covid test when he was said to have passed out. CPR was started and also patient was defibrillated once. CPR was continued on the field by EMS and patient had a spontaneous return of circulation. Upon arrival in the emergency room patient had been receiving bag valve mask ventilation through a Dayron airway. He was tachycardic and was subsequently intubated in the emergency room. Most of the history was obtained from the ER staff as patient is already intubated. Work-up in the emergency room today chest x-ray reveals:Bilateral airspace disease which could be related to alveolar edema or infection. CT scan of the head was unremarkable. Patient could not had a CT angiogram because of his size. Patient is being admitted for cardiopulmonary arrest and also possible Covid pneumonia. Day #2 Patient intubated Patient has high transaminitis status. S/p cardiac arrest ACLS and return of spontaneous circulation Hypoxic brain injury in the differential Covid pneumonia Day #3 Patient intubated Unresponsive S/p cardiac arrest Transaminitis-severe Covid pneumonia Objective - Exam Narrative Exam: Patient is intubated - Constitutional Vitals: Vital Signs - 12hr 09/09/20 09/09/20 09/09/20 09:50 10:00 10:10 Temperature Pulse Rate 59 L 58 L 58 L Pulse Rate [ From Monitor] Respiratory 24 30 H 29 H Rate Blood Pressure 116/54 119/51 115/51 O2 Sat by Pulse 99 99 99 Oximetry O2 Sat by Pulse Oximetry [ Bilateral Throughout] 09/09/20 09/09/20 09/09/20 10:20 10:30 10:41 Temperature Pulse Rate 58 L 59 L 62 Pulse Rate [ From Monitor] Respiratory 30 H 30 H 20 Rate Blood Pressure 119/55 119/56 123/54 O2 Sat by Pulse 100 100 99 Oximetry O2 Sat by Pulse Oximetry [ Bilateral Throughout] 09/09/20 09/09/20 09/09/20 10:50 11:00 11:10 Temperature Pulse Rate 59 L 60 61 Pulse Rate [ From Monitor] Respiratory 26 H 27 H 29 H Rate Blood Pressure 123/56 121/54 117/54 O2 Sat by Pulse 99 97 95 Oximetry O2 Sat by Pulse Oximetry [ Bilateral Throughout] 09/09/20 09/09/20 09/09/20 11:20 11:30 11:40 Temperature Pulse Rate 60 58 L 57 L Pulse Rate [ From Monitor] Respiratory 13 26 H 25 H Rate Blood Pressure 130/60 129/62 127/60 O2 Sat by Pulse 99 100 100 Oximetry O2 Sat by Pulse Oximetry [ Bilateral Throughout] 09/09/20 09/09/20 09/09/20 11:50 12:00 12:10 Temperature 98.8 F Pulse Rate 57 L 57 L 58 L Pulse Rate [ 59 L From Monitor] Respiratory 14 19 13 Rate Blood Pressure 129/60 127/60 130/61 O2 Sat by Pulse 100 100 100 Oximetry O2 Sat by Pulse Oximetry [ Bilateral Throughout] 09/09/20 09/09/20 09/09/20 12:20 12:30 12:40 Temperature Pulse Rate 57 L 56 L 56 L Pulse Rate [ From Monitor] Respiratory 8 L 11 L 10 L Rate Blood Pressure 131/63 130/62 126/63 O2 Sat by Pulse 99 100 100 Oximetry O2 Sat by Pulse Oximetry [ Bilateral Throughout] 09/09/20 09/09/20 09/09/20 12:50 12:52 13:00 Temperature Pulse Rate 56 L 56 L 56 L Pulse Rate [ From Monitor] Respiratory 7 L 8 L Rate Blood Pressure 130/63 130/64 130/64 O2 Sat by Pulse 100 100 100 Oximetry O2 Sat by Pulse Oximetry [ Bilateral Throughout] 09/09/20 09/09/20 09/09/20 13:10 13:20 13:30 Temperature Pulse Rate 58 L 57 L 58 L Pulse Rate [ From Monitor] Respiratory 14 19 26 H Rate Blood Pressure 134/65 123/59 122/56 O2 Sat by Pulse 100 100 100 Oximetry O2 Sat by Pulse Oximetry [ Bilateral Throughout] 09/09/20 09/09/20 09/09/20 13:40 13:50 14:00 Temperature Pulse Rate 58 L 58 L 57 L Pulse Rate [ From Monitor] Respiratory 30 H 30 H 30 H Rate Blood Pressure 122/55 122/56 126/57 O2 Sat by Pulse 100 100 100 Oximetry O2 Sat by Pulse Oximetry [ Bilateral Throughout] 09/09/20 09/09/20 09/09/20 14:10 14:13 14:20 Temperature 98.5 F Pulse Rate 57 L 57 L Pulse Rate [ From Monitor] Respiratory 30 H 30 H Rate Blood Pressure 128/57 128/58 O2 Sat by Pulse 100 100 Oximetry O2 Sat by Pulse Oximetry [ Bilateral Throughout] 09/09/20 09/09/20 09/09/20 14:30 14:40 14:50 Temperature Pulse Rate 58 L 58 L 58 L Pulse Rate [ From Monitor] Respiratory 30 H 30 H 30 H Rate Blood Pressure 123/61 132/63 136/63 O2 Sat by Pulse 100 100 100 Oximetry O2 Sat by Pulse Oximetry [ Bilateral Throughout] 09/09/20 09/09/20 09/09/20 15:00 15:10 15:17 Temperature 98.1 F Pulse Rate 58 L 58 L Pulse Rate [ From Monitor] Respiratory 30 H 30 H Rate Blood Pressure 136/61 136/61 O2 Sat by Pulse 100 100 Oximetry O2 Sat by Pulse Oximetry [ Bilateral Throughout] 09/09/20 09/09/20 09/09/20 15:20 15:30 15:40 Temperature 98.8 F Pulse Rate 58 L 57 L 58 L Pulse Rate [ From Monitor] Respiratory 30 H 30 H 26 H Rate Blood Pressure 138/63 137/63 146/69 O2 Sat by Pulse 100 100 100 Oximetry O2 Sat by Pulse 100 Oximetry [ Bilateral Throughout] 09/09/20 09/09/20 09/09/20 15:45 15:50 16:00 Temperature 98.6 F Pulse Rate 61 66 59 L Pulse Rate [ 60 From Monitor] Respiratory 18 28 H Rate Blood Pressure 137/63 133/64 146/66 O2 Sat by Pulse 100 100 Oximetry O2 Sat by Pulse Oximetry [ Bilateral Throughout] 09/09/20 09/09/20 09/09/20 16:01 16:11 16:15 Temperature Pulse Rate 61 67 59 L Pulse Rate [ From Monitor] Respiratory 30 H 30 H Rate Blood Pressure 146/66 146/66 146/66 O2 Sat by Pulse 100 100 Oximetry O2 Sat by Pulse Oximetry [ Bilateral Throughout] 09/09/20 09/09/20 09/09/20 16:18 16:21 16:30 Temperature Pulse Rate 81 59 L 60 Pulse Rate [ From Monitor] Respiratory 30 H 30 H Rate Blood Pressure 149/66 149/66 146/70 O2 Sat by Pulse 100 100 100 Oximetry O2 Sat by Pulse Oximetry [ Bilateral Throughout] 09/09/20 09/09/20 09/09/20 16:41 16:45 16:51 Temperature Pulse Rate 59 L 59 L 60 Pulse Rate [ From Monitor] Respiratory 30 H 30 H Rate Blood Pressure 133/64 144/67 144/67 O2 Sat by Pulse 100 100 Oximetry O2 Sat by Pulse Oximetry [ Bilateral Throughout] 09/09/20 09/09/20 09/09/20 17:00 17:11 17:15 Temperature Pulse Rate 59 L 61 60 Pulse Rate [ From Monitor] Respiratory 30 H 30 H Rate Blood Pressure 141/64 141/64 143/69 O2 Sat by Pulse 100 100 Oximetry O2 Sat by Pulse Oximetry [ Bilateral Throughout] 09/09/20 09/09/20 09/09/20 17:21 17:30 17:41 Temperature Pulse Rate 60 60 60 Pulse Rate [ From Monitor] Respiratory 30 H 30 H 30 H Rate Blood Pressure 143/69 142/68 142/68 O2 Sat by Pulse 100 100 100 Oximetry O2 Sat by Pulse Oximetry [ Bilateral Throughout] 09/09/20 09/09/20 09/09/20 17:45 17:51 18:00 Temperature Pulse Rate 61 63 59 L Pulse Rate [ From Monitor] Respiratory 30 H 30 H Rate Blood Pressure 140/71 140/71 147/67 O2 Sat by Pulse 100 100 Oximetry O2 Sat by Pulse Oximetry [ Bilateral Throughout] 09/09/20 09/09/20 09/09/20 18:11 18:15 18:21 Temperature Pulse Rate 60 60 61 Pulse Rate [ From Monitor] Respiratory 30 H 15 Rate Blood Pressure 147/67 144/70 144/70 O2 Sat by Pulse 100 100 Oximetry O2 Sat by Pulse Oximetry [ Bilateral Throughout] 09/09/20 09/09/20 09/09/20 18:30 18:41 18:51 Temperature 98.9 F Pulse Rate 63 62 65 Pulse Rate [ From Monitor] Respiratory 18 16 19 Rate Blood Pressure 148/68 148/68 145/66 O2 Sat by Pulse 100 100 100 Oximetry O2 Sat by Pulse 100 Oximetry [ Bilateral Throughout] 09/09/20 09/09/20 09/09/20 19:00 19:11 19:21 Temperature Pulse Rate 63 62 63 Pulse Rate [ From Monitor] Respiratory 15 17 14 Rate Blood Pressure 150/71 150/71 146/67 O2 Sat by Pulse 100 100 100 Oximetry O2 Sat by Pulse Oximetry [ Bilateral Throughout] 09/09/20 09/09/20 09/09/20 19:26 19:30 19:41 Temperature Pulse Rate 61 62 62 Pulse Rate [ From Monitor] Respiratory 13 20 Rate Blood Pressure 146/67 152/67 146/67 O2 Sat by Pulse 100 100 100 Oximetry O2 Sat by Pulse Oximetry [ Bilateral Throughout] 09/09/20 09/09/20 09/09/20 19:51 20:00 20:11 Temperature 98.8 F Pulse Rate 62 67 64 Pulse Rate [ 60 From Monitor] Respiratory 13 13 30 H Rate Blood Pressure 148/69 134/65 152/67 O2 Sat by Pulse 100 100 100 Oximetry O2 Sat by Pulse Oximetry [ Bilateral Throughout] 09/09/20 09/09/20 09/09/20 20:21 20:30 20:41 Temperature Pulse Rate 63 63 63 Pulse Rate [ From Monitor] Respiratory 21 26 H 26 H Rate Blood Pressure 146/67 152/69 152/69 O2 Sat by Pulse 100 100 100 Oximetry O2 Sat by Pulse Oximetry [ Bilateral Throughout] 09/09/20 09/09/20 20:51 21:00 Temperature Pulse Rate 62 63 Pulse Rate [ From Monitor] Respiratory 24 30 H Rate Blood Pressure 153/68 149/69 O2 Sat by Pulse 100 100 Oximetry O2 Sat by Pulse Oximetry [ Bilateral Throughout] General appearance: Present: no acute distress, well-nourished - EENT Eyes: PERRL, EOM intact ENT: hearing intact, clear oral mucosa Ears: bilateral: normal - Neck Neck: supple, normal ROM - Respiratory Respiratory effort: normal Respiratory: bilateral: CTA - Breasts Breasts: normal - Cardiovascular Heart rate: 88 Rhythm: regular Heart Sounds: Present: S1 & S2. Absent: gallop, rub Extremities: pulses intact, No edema, normal color, Full ROM - Gastrointestinal General gastrointestinal: Present: soft, non-tender, non-distended, normal bowel sounds - Genitourinary Male genitourinary: normal - Integumentary Integumentary: clear, warm, dry - Neurologic Neurologic: moves all extremities, other (Patient intubated and sedated) - Psychiatric Psychiatric: other (Patient intubated and sedated) - Labs CBC & Chem 7: 09/10/20 04:05 09/10/20 04:00 Labs: Abnormal lab results 09/08/20 09/09/20 09/09/20 Range/Units 22:36 03:14 04:20 WBC 16.3 H (4.5-11.0) K/mm3 RBC 3.12 L (3.65-5.03) M/mm3 Hgb 8.6 L (11.8-15.2) gm/dl Hct 26.8 L (35.5-45.6) % RDW 18.2 H (13.2-15.2) % Lymph % (Auto) 6.3 L (13.4-35.0) % Ponce % (Auto) 8.8 H (0.0-7.3) % Lymph # (Auto) 1.0 L (1.2-5.4) K/mm3 Ponce # (Auto) 1.4 H (0.0-0.8) K/mm3 Seg Neutrophils % 84.5 H (40.0-70.0) % Seg Neutrophils # 13.7 H (1.8-7.7) K/mm3 PT (12.2-14.9) Sec. INR (0.87-1.13) POC ABG pO2 148.5 H (83-108) mmHg ABG Hemoglobin 9.4 L (12.0-17.5) ABG Oxyhemoglobin 98.8 H (94-98) ABG Sodium 134.8 L (136.0-145.0) mmol/L ABG Potassium 5.0 H (3.40-4.50) mmol/L ABG Glucose 222 H (65-95) mg/dL Carboxyhemoglobin 0.1 L (0.5-1.5) Potassium 5.3 H D (3.6-5.0) mmol/L BUN (9-20) mg/dL Creatinine (0.8-1.3) mg/dL Glucose (75-100) mg/dL POC Glucose (70-105) mg/dL Calcium (8.4-10.2) mg/dL AST (5-40) units/L ALT (7-56) units/L Total Protein (6.3-8.2) g/dL Albumin (3.9-5) g/dL Arterial Blood Glucose 222 H (65-95) mg/dL Arterial Blood Ionized Calcium 3.8 L (4.6-5.3) mg/dL 09/09/20 09/09/20 09/09/20 Range/Units 04:20 10:00 12:23 WBC (4.5-11.0) K/mm3 RBC (3.65-5.03) M/mm3 Hgb (11.8-15.2) gm/dl Hct (35.5-45.6) % RDW (13.2-15.2) % Lymph % (Auto) (13.4-35.0) % Ponce % (Auto) (0.0-7.3) % Lymph # (Auto) (1.2-5.4) K/mm3 Ponce # (Auto) (0.0-0.8) K/mm3 Seg Neutrophils % (40.0-70.0) % Seg Neutrophils # (1.8-7.7) K/mm3 PT 21.7 H (12.2-14.9) Sec. INR 1.90 H (0.87-1.13) POC ABG pO2 (83-108) mmHg ABG Hemoglobin (12.0-17.5) ABG Oxyhemoglobin (94-98) ABG Sodium (136.0-145.0) mmol/L ABG Potassium (3.40-4.50) mmol/L ABG Glucose (65-95) mg/dL Carboxyhemoglobin (0.5-1.5) Potassium 5.2 H (3.6-5.0) mmol/L BUN 47 H (9-20) mg/dL Creatinine 4.3 H (0.8-1.3) mg/dL Glucose 211 H (75-100) mg/dL POC Glucose 216 H (70-105) mg/dL Calcium 7.4 L (8.4-10.2) mg/dL AST 24788 H (5-40) units/L ALT 6206 H (7-56) units/L Total Protein 5.6 L (6.3-8.2) g/dL Albumin 3.0 L (3.9-5) g/dL Arterial Blood Glucose (65-95) mg/dL Arterial Blood Ionized Calcium (4.6-5.3) mg/dL HEART Score - HEART Score Troponin: Troponin T 0.076 ng/mL (0.00-0.029) H 09/07/20 14:00
[2020-09-10] MEDS: LORazepam 100 MG in SODIUM CHLORIDE 0.9% 50 ML, EMPTY BAG 0 ML IV SCH ×2 (00:51→19:52)
--- NOTE | 2020-09-10 03:02 | XRay Report ---
CHEST 1 VIEW 2:34 AM INDICATION / CLINICAL INFORMATION: Follow-up respiratory failure. COMPARISON: Yesterday. FINDINGS: SUPPORT DEVICES: The positions of the endotracheal and nasogastric tubes have not changed. HEART / MEDIASTINUM: Unchanged. LUNGS / PLEURA: Parenchymal disease in both lower lung zones is unchanged to mildly improved. No pneu mothorax. ADDITIONAL FINDINGS: Surgical changes involving the neck. IMPRESSION: Parenchymal opacities in both lower lung zones are unchanged to mildly improved. Signer Name: Florentin Iqbal MD Signed: 09/10/2020 2:58 AM Workstation Name: [id number]
[2020-09-10] MEDS: LORazepam 2 MG/ML VIAL IV PRN ×4 (03:06→16:04)
[2020-09-10 04:27] LABS: Hematocrit 25.8 % (35.5-45.6); Hemoglobin 8.6 gm/dl (11.8-15.2); Mean Corpuscular HGB Conc 33 % (32-34); Mean Corpuscular Volume 84 fl (84-94); Platelet Count 142 K/mm3 (140-440); Red Blood Count 3.06 M/mm3 (3.65-5.03)
[2020-09-10 04:37] LABS: INR 1.54 (0.87-1.13)
[2020-09-10 04:51] LABS: Albumin 3.3 g/dL (3.9-5); Calcium 7.7 mg/dL (8.4-10.2)
[2020-09-10 07:02] LABS: Total Cells Counted 100
[2020-09-10 07:03] LABS: Anisocytosis 1+; Hypochromasia Few; Ovalocytes Few; Platelet Estimate Consistent w Auto; Schistocytes Few
[2020-09-10] MEDS: MULTIVITAMINS 5 ML ORAL LIQUID PO SCH (09:02)
[2020-09-10] MEDS: dexAMETHasone 4 MG/ML VIAL IV SCH (09:02)
[2020-09-10] MEDS: PANTOPRAZOLE 40 MG INJ IV SCH ×2 (09:02→21:42)
[2020-09-10] MEDS ORDERED: levETIRAcetam 1,000 MG in DEXTROSE 5% IN WATER 100 ML IV ONE (10:00)
--- NOTE | 2020-09-10 10:15 | Progress Note ---
Assessment and Plan 65 y/o male with out of hospital cardiac arrest now sedated on ativan for possible seizures. 09/10/20: Loaded with keppra and will start on Keppra BID. Needs EEG on therapy as well as OFF. If patient is in status, needs transfer to a location with continuous EEG capabilities. FiO2 has been weaned back down and is now at 60%, sats in the high 90's. HD per renal. Coags improving. Overall prognosis is guarded to poor. Spoke with on phone yesterday. Consult neurology tomorrow as not available on the weekend. Suggest checking for antibodies as he may be a candidate for convalsescent plasma. Per the , he was diagnosed with COVID on and spent 6 days inpatient at the [facility]. Remains positive now with multisystem organ failure. Explained to that outcome may not be good but need more time to assess. 09/09/20: EEG ordered on yesterday but not done. If done not read. Continue diprovan for now until EEG can be done or interpreted. State Coags but given his oozing from his vascath, will give Vitamin K and FFP. Patient is covid positive so agree with steroids. Not a candidate for remdesivir. Need to check for antibodies, may be a candidate for convalescent plasma. HD per renal. Given improvement in pH will stop bicarb drip. Feed patient. 1. Stop sedation 2. EEG 3. Needs neuro consult. 4. Art line placement 5. Stat repeat of labs, if renal function is truly that bad, will need renal consult. 6. Follow up COVID testing 7. Likely needs echo 8. Will place on bicarb drip. CCT 31 minutes. Subjective Date of service: 09/10/20 Principal diagnosis: Abnormal LFTs Interval history: In an attempt to wean ativan, patient started having seizure like activity last night. This am while on Diprovan and ativan, had further seizure like activity, see nurses notes for description. Loaded with Keppra and started BID keppra therapy. EEG has not been done yet. AST improving, ALT has not peaked yet. ABG on 70% was good but had some desats with seizures so bumped up to 100%. No neurology coverage on weekend available. Objective Vital Signs - 12hr 09/09/20 09/09/20 09/09/20 22:11 22:21 22:30 Temperature Pulse Rate 64 64 63 Pulse Rate [ From Monitor] Respiratory 29 H 22 26 H Rate Blood Pressure 187/86 187/86 190/89 O2 Sat by Pulse 100 100 100 Oximetry 09/09/20 09/09/20 09/09/20 22:40 22:51 23:01 Temperature Pulse Rate 64 63 63 Pulse Rate [ From Monitor] Respiratory 30 H 29 H 30 H Rate Blood Pressure 167/71 167/71 163/72 O2 Sat by Pulse 100 100 100 Oximetry 09/09/20 09/09/20 09/09/20 23:03 23:11 23:21 Temperature Pulse Rate 63 63 64 Pulse Rate [ From Monitor] Respiratory 29 H 23 26 H Rate Blood Pressure 163/72 163/72 163/72 O2 Sat by Pulse 100 100 100 Oximetry 09/09/20 09/09/20 09/09/20 23:31 23:35 23:41 Temperature 98.9 F Pulse Rate 64 63 Pulse Rate [ From Monitor] Respiratory 22 19 Rate Blood Pressure 163/72 163/72 O2 Sat by Pulse 100 100 Oximetry 09/09/20 09/10/20 09/10/20 23:51 00:00 00:11 Temperature Pulse Rate 62 64 64 Pulse Rate [ 60 From Monitor] Respiratory 15 23 21 Rate Blood Pressure 163/72 166/72 171/75 O2 Sat by Pulse 100 100 100 Oximetry 09/10/20 09/10/20 09/10/20 00:21 00:31 00:41 Temperature Pulse Rate 65 62 62 Pulse Rate [ From Monitor] Respiratory 27 H 30 H 21 Rate Blood Pressure 171/75 171/68 171/68 O2 Sat by Pulse 100 100 100 Oximetry 09/10/20 09/10/20 09/10/20 00:51 01:01 01:11 Temperature Pulse Rate 66 63 59 L Pulse Rate [ From Monitor] Respiratory 30 H 23 30 H Rate Blood Pressure 173/72 172/73 172/73 O2 Sat by Pulse 100 100 100 Oximetry 09/10/20 09/10/20 09/10/20 01:21 01:31 01:41 Temperature Pulse Rate 62 59 L 59 L Pulse Rate [ From Monitor] Respiratory 26 H 29 H 30 H Rate Blood Pressure 175/73 167/71 167/71 O2 Sat by Pulse 100 100 100 Oximetry 09/10/20 09/10/20 09/10/20 01:51 02:01 02:11 Temperature Pulse Rate 64 64 63 Pulse Rate [ From Monitor] Respiratory 26 H 14 17 Rate Blood Pressure 166/69 158/69 158/69 O2 Sat by Pulse 100 100 100 Oximetry 09/10/20 09/10/20 09/10/20 02:21 02:31 02:41 Temperature Pulse Rate 64 64 76 Pulse Rate [ From Monitor] Respiratory 12 25 H 24 Rate Blood Pressure 166/69 155/68 155/68 O2 Sat by Pulse 100 100 100 Oximetry 09/10/20 09/10/20 09/10/20 02:51 03:00 03:01 Temperature Pulse Rate 74 74 73 Pulse Rate [ From Monitor] Respiratory 17 17 Rate Blood Pressure 157/68 157/68 172/75 O2 Sat by Pulse 97 99 100 Oximetry 09/10/20 09/10/20 09/10/20 03:11 03:21 03:29 Temperature 99 F Pulse Rate 69 67 Pulse Rate [ From Monitor] Respiratory 16 30 H Rate Blood Pressure 172/75 161/69 O2 Sat by Pulse 100 100 Oximetry 09/10/20 09/10/20 09/10/20 03:31 03:41 03:51 Temperature Pulse Rate 66 64 63 Pulse Rate [ From Monitor] Respiratory 22 30 H 30 H Rate Blood Pressure 160/71 163/74 166/75 O2 Sat by Pulse 100 100 100 Oximetry 09/10/20 09/10/20 09/10/20 04:00 04:01 04:11 Temperature Pulse Rate 64 63 63 Pulse Rate [ 60 From Monitor] Respiratory 28 H 30 H 30 H Rate Blood Pressure 165/72 158/71 O2 Sat by Pulse 100 100 100 Oximetry 09/10/20 09/10/20 09/10/20 04:21 04:31 04:41 Temperature Pulse Rate 63 60 62 Pulse Rate [ From Monitor] Respiratory 30 H 30 H 30 H Rate Blood Pressure 162/71 163/70 153/68 O2 Sat by Pulse 100 100 100 Oximetry 09/10/20 09/10/20 09/10/20 04:51 05:01 05:10 Temperature Pulse Rate 63 63 64 Pulse Rate [ From Monitor] Respiratory 30 H 26 H 20 Rate Blood Pressure 157/68 153/66 157/67 O2 Sat by Pulse 100 100 100 Oximetry 09/10/20 09/10/20 09/10/20 05:21 05:31 05:40 Temperature Pulse Rate 64 64 64 Pulse Rate [ From Monitor] Respiratory 26 H 18 30 H Rate Blood Pressure 155/69 161/69 167/74 O2 Sat by Pulse 100 100 100 Oximetry 09/10/20 09/10/20 09/10/20 05:51 06:00 07:55 Temperature Pulse Rate 63 62 67 Pulse Rate [ From Monitor] Respiratory 30 H 30 H Rate Blood Pressure 172/74 176/78 168/75 O2 Sat by Pulse 100 100 100 Oximetry Constitutional: comatose, other (morbidly obese) Eyes: non-icteric ENT: other (orally intubated and sedated) Neck: supple Effort: normal Ascultation: Bilateral: diminished breath sounds Percussion: Bilateral: not dull Cardiovascular: other (bradycardic) Gastrointestinal: soft CBC and BMP: 09/10/20 04:05 09/10/20 04:00 ABG, PT/INR, D-dimer: ABG ABG pH 7.464 (7.320-7.450) H 09/10/20 04:35 POC ABG pCO2 38.3 mmHg (32.0-48.0) 09/10/20 04:35 POC ABG pO2 104.6 mmHg (83-108) 09/10/20 04:35 POC ABG HCO3 26.9 09/10/20 04:35 PT/INR, D-dimer PT 18.4 Sec. (12.2-14.9) H 09/10/20 04:05 INR 1.54 (0.87-1.13) H 09/10/20 04:05 D-Dimer 8315.85 ng/mlDDU (0-234) H 09/07/20 14:00 Abnormal lab findings: Abnormal Labs 09/07/20 09/07/20 09/07/20 13:08 14:00 14:00 WBC 15.7 H RBC Hgb 10.2 L Hct 32.5 L MCHC 31 L RDW 17.5 H Lymph % (Auto) [place] % (Auto) Lymph # (Auto) [place] # (Auto) Seg Neutrophils % Seg Neuts % (Manual) 72.0 H Lymphocytes % (Manual) Monocytes % (Manual) 8.0 H Nucleated RBC % Seg Neutrophils # Seg Neutrophils # Man 11.3 H Lymphocytes # (Manual) Monocytes # (Manual) 1.3 H PT INR D-Dimer 8315.85 H ABG pH POC ABG pCO2 POC ABG pO2 ABG Hemoglobin ABG Oxyhemoglobin ABG Sodium ABG Potassium ABG Chloride ABG Glucose Carboxyhemoglobin Sodium Potassium Chloride Carbon Dioxide BUN Creatinine Glucose POC Glucose Lactic Acid Calcium Phosphorus Ferritin Total Bilirubin Direct Bilirubin AST ALT Lactate Dehydrogenase Total Creatine Kinase Troponin T Total Protein Albumin Arterial Blood Glucose Arterial Blood Ionized Calcium Urine pH 8.0 H Urine Creatinine Salicylates Acetaminophen Coronavirus (PCR) 09/07/20 09/07/20 09/07/20 14:00 14:00 14:00 WBC RBC Hgb Hct MCHC RDW Lymph % (Auto) [place] % (Auto) Lymph # (Auto) [place] # (Auto) Seg Neutrophils % Seg Neuts % (Manual) Lymphocytes % (Manual) Monocytes % (Manual) Nucleated RBC % Seg Neutrophils # Seg Neutrophils # Man Lymphocytes # (Manual) Monocytes # (Manual) PT INR D-Dimer ABG pH POC ABG pCO2 POC ABG pO2 ABG Hemoglobin ABG Oxyhemoglobin ABG Sodium ABG Potassium ABG Chloride ABG Glucose Carboxyhemoglobin Sodium Potassium Chloride Carbon Dioxide BUN Creatinine Glucose POC Glucose Lactic Acid 4.30 H* Calcium Phosphorus Ferritin > 2000.0 H Total Bilirubin Direct Bilirubin AST ALT Lactate Dehydrogenase 882 H Total Creatine Kinase 477 H Troponin T 0.076 H Total Protein Albumin Arterial Blood Glucose Arterial Blood Ionized Calcium Urine pH Urine Creatinine Salicylates Acetaminophen Coronavirus (PCR) 09/07/20 09/07/20 09/07/20 14:00 14:00 14:00 WBC RBC Hgb Hct MCHC RDW Lymph % (Auto) [place] % (Auto) Lymph # (Auto) [place] # (Auto) Seg Neutrophils % Seg Neuts % (Manual) Lymphocytes % (Manual) Monocytes % (Manual) Nucleated RBC % Seg Neutrophils # Seg Neutrophils # Man Lymphocytes # (Manual) Monocytes # (Manual) PT INR D-Dimer ABG pH POC ABG pCO2 POC ABG pO2 ABG Hemoglobin ABG Oxyhemoglobin ABG Sodium ABG Potassium ABG Chloride ABG Glucose Carboxyhemoglobin Sodium Potassium Chloride Carbon Dioxide BUN Creatinine 1.8 H Glucose POC Glucose Lactic Acid Calcium Phosphorus Ferritin Total Bilirubin Direct Bilirubin AST 310 H ALT 339 H Lactate Dehydrogenase Total Creatine Kinase Troponin T Total Protein Albumin 3.6 L Arterial Blood Glucose Arterial Blood Ionized Calcium Urine pH Urine Creatinine Salicylates < 0.3 L Acetaminophen 5.0 L Coronavirus (PCR) 09/07/20 09/08/20 09/08/20 14:26 04:00 04:17 WBC RBC Hgb Hct MCHC RDW Lymph % (Auto) [place] % (Auto) Lymph # (Auto) [place] # (Auto) Seg Neutrophils % Seg Neuts % (Manual) Lymphocytes % (Manual) Monocytes % (Manual) Nucleated RBC % Seg Neutrophils # Seg Neutrophils # Man Lymphocytes # (Manual) Monocytes # (Manual) PT INR D-Dimer ABG pH 7.037 L 7.095 L POC ABG pCO2 92.4 H 68.0 H POC ABG pO2 130.8 H 43.5 L ABG Hemoglobin 11.3 L 10.6 L ABG Oxyhemoglobin 70.8 L ABG Sodium ABG Potassium 7.0 H ABG Chloride 108.0 H ABG Glucose Carboxyhemoglobin 0.3 L Sodium Potassium 8.4 H* D Chloride Carbon Dioxide 17 L D BUN 38 H Creatinine 3.9 H D Glucose POC Glucose Lactic Acid Calcium 7.7 L D Phosphorus Ferritin Total Bilirubin Direct Bilirubin AST ALT Lactate Dehydrogenase Total Creatine Kinase Troponin T Total Protein Albumin Arterial Blood Glucose Arterial Blood Ionized Calcium 4.5 L Urine pH Urine Creatinine Salicylates Acetaminophen Coronavirus (PCR) 09/08/20 09/08/20 09/08/20 05:00 05:25 12:02 WBC RBC Hgb Hct MCHC RDW Lymph % (Auto) [place] % (Auto) Lymph # (Auto) [place] # (Auto) Seg Neutrophils % Seg Neuts % (Manual) Lymphocytes % (Manual) Monocytes % (Manual) Nucleated RBC % Seg Neutrophils # Seg Neutrophils # Man Lymphocytes # (Manual) Monocytes # (Manual) PT INR D-Dimer ABG pH 7.088 L POC ABG pCO2 69.1 H POC ABG pO2 35.2 L ABG Hemoglobin 10.9 L ABG Oxyhemoglobin 57.1 L ABG Sodium ABG Potassium 7.0 H ABG Chloride 108.0 H ABG Glucose Carboxyhemoglobin 0.4 L Sodium Potassium 8.1 H* Chloride Carbon Dioxide 17 L BUN 38 H Creatinine 3.7 H Glucose POC Glucose Lactic Acid Calcium 8.0 L Phosphorus 8.00 H Ferritin Total Bilirubin Direct Bilirubin 0.5 H AST 3696 H ALT 3331 H Lactate Dehydrogenase Total Creatine Kinase Troponin T Total Protein Albumin 3.5 L Arterial Blood Glucose Arterial Blood Ionized Calcium 4.4 L Urine pH Urine Creatinine Salicylates Acetaminophen Coronavirus (PCR) 09/08/20 09/08/20 09/08/20 16:31 22:36 Unknown WBC RBC Hgb Hct MCHC RDW Lymph % (Auto) [place] % (Auto) Lymph # (Auto) [place] # (Auto) Seg Neutrophils % Seg Neuts % (Manual) Lymphocytes % (Manual) Monocytes % (Manual) Nucleated RBC % Seg Neutrophils # Seg Neutrophils # Man Lymphocytes # (Manual) Monocytes # (Manual) PT INR D-Dimer ABG pH POC ABG pCO2 POC ABG pO2 ABG Hemoglobin ABG Oxyhemoglobin ABG Sodium ABG Potassium ABG Chloride ABG Glucose Carboxyhemoglobin Sodium Potassium 5.3 H D Chloride Carbon Dioxide BUN Creatinine Glucose POC Glucose 158 H Lactic Acid Calcium Phosphorus Ferritin Total Bilirubin Direct Bilirubin AST ALT Lactate Dehydrogenase Total Creatine Kinase Troponin T Total Protein Albumin Arterial Blood Glucose Arterial Blood Ionized Calcium Urine pH Urine Creatinine Salicylates Acetaminophen Coronavirus (PCR) Positive A 09/08/20 09/08/20 09/08/20 Unknown Unknown Unknown WBC 18.4 H RBC Hgb 10.1 L Hct 32.0 L MCHC RDW 18.2 H Lymph % (Auto) [place] % (Auto) Lymph # (Auto) [place] # (Auto) Seg Neutrophils % Seg Neuts % (Manual) 81.0 H Lymphocytes % (Manual) 2.0 L Monocytes % (Manual) Nucleated RBC % 1.0 H Seg Neutrophils # Seg Neutrophils # Man 14.9 H Lymphocytes # (Manual) 0.4 L Monocytes # (Manual) 1.1 H PT 21.2 H INR 1.83 H D-Dimer ABG pH POC ABG pCO2 POC ABG pO2 ABG Hemoglobin ABG Oxyhemoglobin ABG Sodium ABG Potassium ABG Chloride ABG Glucose Carboxyhemoglobin Sodium Potassium Chloride Carbon Dioxide BUN Creatinine Glucose POC Glucose Lactic Acid Calcium Phosphorus Ferritin Total Bilirubin Direct Bilirubin AST ALT Lactate Dehydrogenase Total Creatine Kinase Troponin T Total Protein Albumin Arterial Blood Glucose Arterial Blood Ionized Calcium Urine pH Urine Creatinine 182.4 H Salicylates Acetaminophen Coronavirus (PCR) 09/09/20 09/09/20 09/09/20 03:14 04:20 04:20 WBC 16.3 H RBC 3.12 L Hgb 8.6 L Hct 26.8 L MCHC RDW 18.2 H Lymph % (Auto) 6.3 L [place] % (Auto) 8.8 H Lymph # (Auto) 1.0 L [place] # (Auto) 1.4 H Seg Neutrophils % 84.5 H Seg Neuts % (Manual) Lymphocytes % (Manual) Monocytes % (Manual) Nucleated RBC % Seg Neutrophils # 13.7 H Seg Neutrophils # Man Lymphocytes # (Manual) Monocytes # (Manual) PT INR D-Dimer ABG pH POC ABG pCO2 POC ABG pO2 148.5 H ABG Hemoglobin 9.4 L ABG Oxyhemoglobin 98.8 H ABG Sodium 134.8 L ABG Potassium 5.0 H ABG Chloride ABG Glucose 222 H Carboxyhemoglobin 0.1 L Sodium Potassium 5.2 H Chloride Carbon Dioxide BUN 47 H Creatinine 4.3 H Glucose 211 H POC Glucose Lactic Acid Calcium 7.4 L Phosphorus Ferritin Total Bilirubin [place] 53461 H ALT 6206 H Lactate Dehydrogenase Total Creatine Kinase Troponin T Total Protein 5.6 L Albumin 3.0 L Arterial Blood Glucose 222 H Arterial Blood Ionized Calcium 3.8 L Urine pH Urine Creatinine Salicylates Acetaminophen Coronavirus (PCR) 09/09/20 09/09/20 09/09/20 10:00 12:23 18:22 WBC RBC Hgb Hct MCHC RDW Lymph % (Auto) [place] % (Auto) Lymph # (Auto) [place] # (Auto) Seg Neutrophils % Seg Neuts % (Manual) Lymphocytes % (Manual) Monocytes % (Manual) Nucleated RBC % Seg Neutrophils # Seg Neutrophils # Man Lymphocytes # (Manual) Monocytes # (Manual) PT 21.7 H INR 1.90 H D-Dimer ABG pH POC ABG pCO2 POC ABG pO2 ABG Hemoglobin ABG Oxyhemoglobin ABG Sodium ABG Potassium ABG Chloride ABG Glucose Carboxyhemoglobin Sodium Potassium Chloride Carbon Dioxide BUN Creatinine Glucose POC Glucose 216 H 211 H Lactic Acid Calcium Phosphorus Ferritin Total Bilirubin Direct Bilirubin AST ALT Lactate Dehydrogenase Total Creatine Kinase Troponin T Total Protein Albumin Arterial Blood Glucose Arterial Blood Ionized Calcium Urine pH Urine Creatinine Salicylates Acetaminophen Coronavirus (PCR) 09/10/20 09/10/20 09/10/20 04:00 04:05 04:05 WBC 15.0 H RBC 3.06 L Hgb 8.6 L Hct 25.8 L MCHC RDW 18.0 H Lymph % (Auto) [place] % (Auto) Lymph # (Auto) [place] # (Auto) Seg Neutrophils % Seg Neuts % (Manual) 86.0 H Lymphocytes % (Manual) 6.0 L Monocytes % (Manual) 8.0 H Nucleated RBC % Seg Neutrophils # Seg Neutrophils # Man 12.9 H Lymphocytes # (Manual) 0.9 L Monocytes # (Manual) 1.2 H PT 18.4 H INR 1.54 H D-Dimer ABG pH POC ABG pCO2 POC ABG pO2 ABG Hemoglobin ABG Oxyhemoglobin ABG Sodium ABG Potassium ABG Chloride ABG Glucose Carboxyhemoglobin Sodium 134 L Potassium Chloride 93.7 L Carbon Dioxide BUN 46 H Creatinine 3.6 H Glucose 275 H POC Glucose Lactic Acid Calcium 7.7 L Phosphorus Ferritin Total Bilirubin 1.30 H Direct Bilirubin AST 5899 H ALT 6440 H Lactate Dehydrogenase Total Creatine Kinase Troponin T Total Protein 5.9 L Albumin 3.3 L Arterial Blood Glucose Arterial Blood Ionized Calcium Urine pH Urine Creatinine Salicylates Acetaminophen Coronavirus (PCR) 09/10/20 04:35 WBC RBC Hgb Hct MCHC RDW Lymph % (Auto) [place] % (Auto) Lymph # (Auto) [place] # (Auto) Seg Neutrophils % Seg Neuts % (Manual) Lymphocytes % (Manual) Monocytes % (Manual) Nucleated RBC % Seg Neutrophils # Seg Neutrophils # Man Lymphocytes # (Manual) Monocytes # (Manual) PT INR D-Dimer ABG pH 7.464 H POC ABG pCO2 POC ABG pO2 ABG Hemoglobin 9.9 L ABG Oxyhemoglobin ABG Sodium 131.6 L ABG Potassium ABG Chloride 97.0 L ABG Glucose 281 H Carboxyhemoglobin 0.1 L Sodium Potassium Chloride Carbon Dioxide BUN Creatinine Glucose POC Glucose Lactic Acid Calcium Phosphorus Ferritin Total Bilirubin Direct Bilirubin AST ALT Lactate Dehydrogenase Total Creatine Kinase Troponin T Total Protein Albumin Arterial Blood Glucose 281 H Arterial Blood Ionized Calcium 3.9 L Urine pH Urine Creatinine Salicylates Acetaminophen Coronavirus (PCR)
[2020-09-10] MEDS: levETIRAcetam 500 MG in DEXTROSE 5% IN WATER 100 ML IV SCH ×2 (11:34→22:11)
--- NOTE | 2020-09-10 12:49 | Event Note ---
Date: 09/10/20 Called to update her on persistent seizures, repeat CT planned and loaded with Keppra in addition to continuation of Ativan and Diprovan.
--- NOTE | 2020-09-10 14:08 | Progress Note ---
Assessment and Plan Impression: * Nonoliguric RYAN secondary to ATN * Severe hyperkalemia - resolved * COVID 19 PNA * s/p OOH cardiac arrest * Acute hypoxic respiratory failure * Seizure activity * Anemia Plan: * Patient is s/p emergent HD on Friday (hyperK) and Friday * No acute indication for hemodialysis at this time - UOP good and lytes are stable * Will reassess need for hemodialysis tomorrrow * Note plan for repeat CT. EEG pending * Vent management per CCM * Steroids per primary team/ID * Dose medications for renal function * Avoid potential nephrotoxins * Prognosis is poor * Contacted via phone and provided update Subjective Date of service: 09/10/20 Principal diagnosis: Abnormal LFTs Interval history: Patient w/ seizure activity Objective - Vital Signs Vital signs: Vital Signs - 12hr 09/10/20 09/10/20 09/10/20 02:11 02:21 02:31 Temperature Pulse Rate 63 64 64 Pulse Rate [ From Monitor] Respiratory 17 12 25 H Rate Blood Pressure 158/69 166/69 155/68 O2 Sat by Pulse 100 100 100 Oximetry 09/10/20 09/10/20 09/10/20 02:41 02:51 03:00 Temperature Pulse Rate 76 74 74 Pulse Rate [ From Monitor] Respiratory 24 17 Rate Blood Pressure 155/68 157/68 157/68 O2 Sat by Pulse 100 97 99 Oximetry 09/10/20 09/10/20 09/10/20 03:01 03:11 03:21 Temperature Pulse Rate 73 69 67 Pulse Rate [ From Monitor] Respiratory 17 16 30 H Rate Blood Pressure 172/75 172/75 161/69 O2 Sat by Pulse 100 100 100 Oximetry 09/10/20 09/10/20 09/10/20 03:29 03:31 03:41 Temperature 99 F Pulse Rate 66 64 Pulse Rate [ From Monitor] Respiratory 22 30 H Rate Blood Pressure 160/71 163/74 O2 Sat by Pulse 100 100 Oximetry 09/10/20 09/10/20 09/10/20 03:51 04:00 04:01 Temperature Pulse Rate 63 64 63 Pulse Rate [ 60 From Monitor] Respiratory 30 H 28 H 30 H Rate Blood Pressure 166/75 165/72 O2 Sat by Pulse 100 100 100 Oximetry 09/10/20 09/10/20 09/10/20 04:11 04:21 04:31 Temperature Pulse Rate 63 63 60 Pulse Rate [ From Monitor] Respiratory 30 H 30 H 30 H Rate Blood Pressure 158/71 162/71 163/70 O2 Sat by Pulse 100 100 100 Oximetry 09/10/20 09/10/20 09/10/20 04:41 04:51 05:01 Temperature Pulse Rate 62 63 63 Pulse Rate [ From Monitor] Respiratory 30 H 30 H 26 H Rate Blood Pressure 153/68 157/68 153/66 O2 Sat by Pulse 100 100 100 Oximetry 09/10/20 09/10/20 09/10/20 05:10 05:21 05:31 Temperature Pulse Rate 64 64 64 Pulse Rate [ From Monitor] Respiratory 20 26 H 18 Rate Blood Pressure 157/67 155/69 161/69 O2 Sat by Pulse 100 100 100 Oximetry 09/10/20 09/10/20 09/10/20 05:40 05:51 06:00 Temperature Pulse Rate 64 63 62 Pulse Rate [ From Monitor] Respiratory 30 H 30 H 30 H Rate Blood Pressure 167/74 172/74 176/78 O2 Sat by Pulse 100 100 100 Oximetry 09/10/20 09/10/20 09/10/20 06:11 06:21 06:31 Temperature Pulse Rate 63 61 62 Pulse Rate [ From Monitor] Respiratory 30 H 30 H 30 H Rate Blood Pressure 176/78 179/75 167/74 O2 Sat by Pulse 100 100 100 Oximetry 09/10/20 09/10/20 09/10/20 06:41 06:51 07:01 Temperature Pulse Rate 64 65 64 Pulse Rate [ From Monitor] Respiratory 30 H 28 H 30 H Rate Blood Pressure 167/74 169/74 164/68 O2 Sat by Pulse 100 100 100 Oximetry 09/10/20 09/10/20 09/10/20 07:11 07:21 07:30 Temperature Pulse Rate 66 66 67 Pulse Rate [ From Monitor] Respiratory 30 H 29 H 30 H Rate Blood Pressure 164/68 156/73 172/77 O2 Sat by Pulse 100 100 100 Oximetry 09/10/20 09/10/20 09/10/20 07:41 07:51 07:55 Temperature Pulse Rate 68 67 67 Pulse Rate [ From Monitor] Respiratory 22 17 Rate Blood Pressure 172/77 165/73 168/75 O2 Sat by Pulse 100 100 100 Oximetry 09/10/20 09/10/20 09/10/20 08:00 08:11 08:21 Temperature Pulse Rate 66 69 88 Pulse Rate [ 60 From Monitor] Respiratory 29 H 23 29 H Rate Blood Pressure 168/75 168/75 145/56 O2 Sat by Pulse 100 100 90 Oximetry 09/10/20 09/10/20 09/10/20 08:31 08:41 08:51 Temperature Pulse Rate 87 80 79 Pulse Rate [ From Monitor] Respiratory 16 28 H 23 Rate Blood Pressure 189/80 189/80 159/69 O2 Sat by Pulse 99 95 96 Oximetry 09/10/20 09/10/20 09/10/20 09:00 09:11 09:21 Temperature Pulse Rate 78 77 76 Pulse Rate [ From Monitor] Respiratory 18 20 17 Rate Blood Pressure 159/64 159/64 158/66 O2 Sat by Pulse 96 96 97 Oximetry 09/10/20 09/10/20 09/10/20 09:30 09:41 09:51 Temperature Pulse Rate 77 76 77 Pulse Rate [ From Monitor] Respiratory 30 H 17 20 Rate Blood Pressure 155/67 155/67 153/63 O2 Sat by Pulse 97 97 98 Oximetry 09/10/20 09/10/20 09/10/20 10:00 10:11 10:21 Temperature Pulse Rate 76 74 73 Pulse Rate [ From Monitor] Respiratory 30 H 18 22 Rate Blood Pressure 160/70 160/70 163/66 O2 Sat by Pulse 98 97 97 Oximetry 09/10/20 09/10/20 09/10/20 10:30 10:41 10:51 Temperature Pulse Rate 72 72 72 Pulse Rate [ From Monitor] Respiratory 29 H 30 H 31 H Rate Blood Pressure 163/71 163/71 165/71 O2 Sat by Pulse 97 97 98 Oximetry 09/10/20 09/10/20 09/10/20 11:01 11:11 11:21 Temperature Pulse Rate 74 74 73 Pulse Rate [ From Monitor] Respiratory 26 H 30 H 30 H Rate Blood Pressure 163/78 163/78 171/73 O2 Sat by Pulse 97 100 99 Oximetry 09/10/20 09/10/20 09/10/20 11:31 11:41 11:51 Temperature Pulse Rate 72 73 73 Pulse Rate [ From Monitor] Respiratory 29 H 30 H 30 H Rate Blood Pressure 156/66 156/66 159/66 O2 Sat by Pulse 97 97 97 Oximetry 09/10/20 09/10/20 09/10/20 12:00 12:11 12:21 Temperature Pulse Rate 72 71 72 Pulse Rate [ 71 From Monitor] Respiratory 30 H 30 H 30 H Rate Blood Pressure 155/65 155/65 155/65 O2 Sat by Pulse 95 96 96 Oximetry 09/10/20 09/10/20 09/10/20 12:30 12:41 12:51 Temperature Pulse Rate 71 71 70 Pulse Rate [ From Monitor] Respiratory 30 H 30 H 30 H Rate Blood Pressure 151/64 151/64 158/65 O2 Sat by Pulse 92 95 95 Oximetry 09/10/20 13:01 Temperature Pulse Rate 71 Pulse Rate [ From Monitor] Respiratory 30 H Rate Blood Pressure 154/63 O2 Sat by Pulse 92 Oximetry - General Appearance General appearance: intubated EENT: ATNC, other (ETT in place) Respiratory: Present: Other (DEFERRED) Cardiology: other (DEFERRED) Gastrointestinal: other (DEFERRED) Neurologic: other (patient w/ active seizure at time of visit) Musculoskeletal: other (DEFERRED) - Lab 09/10/20 04:05 09/10/20 04:00 Most recent lab results ABG pH 7.464 (7.320-7.450) H 09/10/20 04:35 Calcium 7.7 mg/dL (8.4-10.2) L 09/10/20 04:00 Phosphorus 8.00 mg/dL (2.5-4.5) H 09/08/20 12:02 Magnesium 1.80 mg/dL (1.7-2.3) 09/08/20 12:02 Urine Creatinine 182.4 mg/dL (0.1-20.0) H 09/08/20 Unknown Urine Sodium 40 mmol/L 09/08/20 Unknown Medications & Allergies - Medications Allergies/Adverse Reactions: Allergies Unable to Assess Allergy (Verified 09/07/20 13:43) intubated Active Medications: Generic Name Dose Route Start Last Admin Trade Name Freq PRN Reason Stop Dose Admin Lipase/Protease/Amylase 1 each 09/09/20 09:40 Lipase 10,500/Protease 25,000/Amylase 43,750 (Units) Dr Armenta FEEDTUBE PRN PRN For Clogged Feeding Tube Dexamethasone 6 mg 09/08/20 10:00 09/10/20 09:02 Dexamethasone 4 Mg/Ml Vial IV 09/16/20 10:01 6 mg Q24HR TAYLOR Administration Fentanyl 50 mcg 09/07/20 13:08 09/07/20 19:26 Fentanyl 100 Mcg/2 Ml Inj IV 50 mcg Q10MIN PRN Administration ANALGESIA Hydrophilic Ointment 1 applic 09/07/20 13:08 Lip Therapy Vaseline TP Q2HR PRN Dry Lips Ceftriaxone Sodium 2 gm in 100 mls @ 200 mls/hr 09/08/20 16:00 09/09/20 20:15 Rocephin/Ns 2 Gm/100 Ml IV Infused Q24H TAYLOR Infusion Protocol Azithromycin 500 mg in 250 mls @ 250 mls/hr 09/08/20 18:00 09/09/20 20:16 Zithromax/Ns IV Infused Q24H TAYLOR Infusion Protocol Sodium Chloride 1,000 mls @ 110 mls/hr 09/08/20 00:45 09/08/20 19:46 Nacl 0.9% 1000 Ml IV Infused DIRECT TAYLOR Infusion Norepinephrine 4 mg in 250 mls @ 7.5 mls/hr 09/08/20 01:30 09/08/20 12:00 Levophed Drip 4 Mg/Ns 250 Ml IV 0 mcg/min TITR TAYLOR 0 mls/hr Titration Protocol 2 MCG/MIN Lorazepam 100 mg/ Sodium 100 mls @ 1 mls/hr 09/08/20 04:00 09/10/20 08:32 Chloride/ Miscellaneous IV 4 mg/hr Information TITR TAYLOR 4 mls/hr Titration Protocol 1 MG/HR Vasopressin 20 unit/ Sodium 101 mls @ 9.09 mls/hr 09/08/20 06:00 09/08/20 08:43 Chloride IV 0 units/min TITR TAYLOR 0 mls/hr Titration Protocol 0.03 UNITS/MIN Sodium Bicarbonate 150 meq/ 1,150 mls @ 75 mls/hr 09/08/20 12:00 09/09/20 20:18 Dextrose IV 75 mls/hr DIRECT TAYLOR Administration Sodium Chloride 100 mls @ 999 mls/hr 09/08/20 13:36 Nacl 0.9% IV JAYJAY PRN Hypotension Propofol 1,000 mg in 100 mls @ 4.995 mls/hr 09/08/20 20:00 09/10/20 13:32 Diprivan 10 Mg/Ml IV 45 mcg/kg/min TITR TAYLOR 44.955 mls/hr Administration Protocol 5 MCG/KG/MIN Sodium Chloride 100 mls @ 999 mls/hr 09/09/20 13:36 Nacl 0.9% IV JAYJAY PRN Hypotension Levetiracetam 500 mg/ Dextrose 105 mls @ 400 mls/hr 09/10/20 10:00 09/10/20 11:34 IV 400 mls/hr BID TAYLOR Administration Ibuprofen 400 mg 09/08/20 05:10 Ibuprofen 400 Mg Tab PO Q6H PRN Pain, Mild (1-3) Lorazepam 2 mg 09/08/20 00:14 09/10/20 11:10 Lorazepam 2 Mg/Ml Vial IV 2 mg Q4H PRN Administration Seizures Lorazepam 2 mg 09/08/20 03:55 09/10/20 03:06 Lorazepam 2 Mg/Ml Vial IV 2 mg Q10MIN PRN Administration Agitation Morphine Sulfate 2 mg 09/07/20 17:55 Morphine 2 Mg/1 Ml Inj IV Q4H PRN Pain, Moderate (4-6) Multi-Ingred Cream/Lotion/Oil/Oint 1 applic 09/07/20 13:08 Mineral Oil/Petrolatum, White Ophth Oint 3.5 Gm OU Q4HR PRN Dry Eye(s) Multivitamins 5 ml 09/09/20 12:00 09/10/20 09:02 Multivitamins 5 Ml Oral Liquid PO 5 ml QDAY TAYLOR Administration Ondansetron HCl 4 mg 09/07/20 17:55 Ondansetron 4 Mg/2 Ml Inj IV Q8H PRN Nausea And Vomiting Pantoprazole Sodium 40 mg 09/09/20 22:00 09/10/20 09:02 Pantoprazole 40 Mg Inj IV 40 mg BID TAYLOR Administration Simple Syrup 15 ml 09/09/20 09:40 Simple Syrup 15 Ml FEEDTUBE PRN PRN Hypoglycemia Simple Syrup 30 ml 09/09/20 09:40 Simple Syrup 15 Ml FEEDTUBE PRN PRN Hypoglycemia Sodium Bicarbonate 325 mg 09/09/20 09:40 Sodium Bicarbonate 325 Mg Tab FEEDTUBE PRN PRN For Clogged Feeding Tube Sodium Chloride 10 ml 09/07/20 22:00 09/10/20 10:08 Sodium Chloride 0.9% 10 Ml Flush Syringe IV 10 ml BID TAYLOR Administration Sodium Chloride 10 ml 09/07/20 17:55 Sodium Chloride 0.9% 10 Ml Flush Syringe IV PRN PRN LINE FLUSH
[2020-09-10] MEDS: SODIUM BICARBONATE 150 MEQ in DEXTROSE 5% IN WATER 1,000 ML IV SCH (14:22)
[2020-09-10] MEDS: cefTRIAXone/NS 2 GM/100 ML 2 GM/100 ML BAG IV SCH (15:19)
--- NOTE | 2020-09-10 16:01 | Gastroenterology Progress Note ---
Assessment and Plan - Patient Problems (1) COVID-19 Current Visit: Yes Status: Acute (2) Transaminitis Current Visit: Yes Status: Acute Plan to address problem: - Serologies negative so far, and likely acute ischemic injury; he is COVID positive, and unclear if he was taking excess tylenol at home, but outside the window for Acetadote at present. - Will get RUQ US, and agree with monitoring INR serially to assess hepatic function (stable at present). - OK to continue OG feeds, as nutrition may aid in liver recovery; will add MVI as well. - Will d/c tylenol PRN order; if needed for fevers, low-dose ibuprofen is acceptable. - With active COVID, not a candidate for liver transplant evaluation even if severe decompensation, eliezer with severe pulmonary compromise, as well as unclear mental status/possible seizures. Subjective Date of service: 09/10/20 Principal diagnosis: Abnormal LFTs Interval history: The patient has had seizure activity, and remains intubated. He did have bleedi ng from the VasCath, but corrected after suture, and no gross bleeding from coagulopathy noted. Tolerating tube feeds without melena. Objective - Constitutional Vitals: Temp Pulse Resp BP Pulse Ox 99 F 131 H 30 H 157/65 96 09/10/20 03:29 09/10/20 15:55 09/10/20 13:01 09/10/20 15:55 09/10/20 15:55 General appearance: no acute distress - Respiratory Respiratory effort: normal Respiratory: bilateral: CTA (Vent) - Cardiovascular Rhythm: regular Heart Sounds: Present: S1 & S2 - Gastrointestinal General gastrointestinal: Present: soft, non-tender, non-distended - Labs CBC & Chem 7: 09/10/20 04:05 09/10/20 04:00 Labs: Laboratory Results - last 24 hr 09/09/20 09/09/20 09/10/20 12:23 18:22 04:00 WBC RBC Hgb Hct MCV MCH MCHC RDW Plt Count Add Manual Diff Total Counted Seg Neuts % (Manual) Lymphocytes % (Manual) Monocytes % (Manual) Nucleated RBC % Seg Neutrophils # Man Band Neutrophils # Lymphocytes # (Manual) Abs React Lymphs (Man) Monocytes # (Manual) Eosinophils # (Manual) Basophils # (Manual) Metamyelocytes # Myelocytes # Promyelocytes # Blast Cells # WBC Morphology Hypersegmented Neuts Hyposegmented Neuts Hypogranular Neuts Smudge Cells Toxic Granulation Toxic Vacuolation Dohle Bodies Pelger-Huet Anomaly Justus Rods Platelet Estimate Clumped Platelets Plt Clumps, EDTA Large Platelets Giant Platelets Platelet Satelliting Plt Morphology Comment RBC Morphology Dimorphic RBCs Polychromasia Hypochromasia Poikilocytosis Anisocytosis Microcytosis Macrocytosis Spherocytes Pappenheimer Bodies Sickle Cells Target Cells Tear Drop Cells Ovalocytes Helmet Cells [place] Bodies [place] Rings [place] Cells Bite Cells Crenated Cell Elliptocytes Acanthocytes (Spur) Rouleaux Hemoglobin C Crystals Schistocytes Malaria parasites [place]mie Bodies Hem Pathologist Commnt PT INR ABG pH POC ABG pCO2 POC ABG pO2 POC ABG HCO3 POC ABG Base Excess ABG Hemoglobin ABG Oxyhemoglobin ABG Methemoglobin ABG Sodium ABG Potassium ABG Chloride ABG Glucose Carboxyhemoglobin FiO2 Sodium 134 L Potassium 4.3 Chloride 93.7 L Carbon Dioxide 27 Anion Gap 18 BUN 46 H Creatinine 3.6 H Estimated GFR 21 BUN/Creatinine Ratio 13 Glucose 275 H POC Glucose 216 H 211 H Calcium 7.7 L Total Bilirubin 1.30 H AST 5899 H ALT 6440 H Alkaline Phosphatase 104 Total Protein 5.9 L Albumin 3.3 L Albumin/Globulin Ratio 1.3 Arterial Blood Glucose Arterial Blood Ionized Calcium 09/10/20 09/10/20 09/10/20 04:05 04:05 04:35 WBC 15.0 H RBC 3.06 L Hgb 8.6 L Hct 25.8 L MCV 84 MCH 28 MCHC 33 RDW 18.0 H Plt Count 142 Add Manual Diff Complete Total Counted 100 Seg Neuts % (Manual) 86.0 H Lymphocytes % (Manual) 6.0 L Monocytes % (Manual) 8.0 H Nucleated RBC % Not Reportable Seg Neutrophils # Man 12.9 H Band Neutrophils # 0.0 Lymphocytes # (Manual) 0.9 L Abs React Lymphs (Man) 0.0 Monocytes # (Manual) 1.2 H Eosinophils # (Manual) 0.0 Basophils # (Manual) 0.0 Metamyelocytes # 0.0 Myelocytes # 0.0 Promyelocytes # 0.0 Blast Cells # 0.0 WBC Morphology Not Reportable Hypersegmented Neuts Not Reportable Hyposegmented Neuts Not Reportable Hypogranular Neuts Not Reportable Smudge Cells Not Reportable Toxic Granulation Not Reportable Toxic Vacuolation Not Reportable Dohle Bodies Not Reportable Pelger-Huet Anomaly Not Reportable Justus Rods Not Reportable Platelet Estimate Consistent w auto Clumped Platelets Not Reportable Plt Clumps, EDTA Not Reportable Large Platelets Not Reportable Giant Platelets Not Reportable Platelet Satelliting Not Reportable Plt Morphology Comment Not Reportable RBC Morphology Not Reportable Dimorphic RBCs Not Reportable Polychromasia Not Reportable Hypochromasia Few Poikilocytosis Not Reportable Anisocytosis 1+ Microcytosis Not Reportable Macrocytosis Not Reportable Spherocytes Not Reportable Pappenheimer Bodies Not Reportable Sickle Cells Not Reportable Target Cells Not Reportable Tear Drop Cells Not Reportable Ovalocytes Few Helmet Cells Not Reportable Batres[place] Bodies Not Reportable [place] Rings Not Reportable Manjit Cells Not Reportable Bite Cells Not Reportable Crenated Cell Not Reportable Elliptocytes Not Reportable Acanthocytes (Spur) Not Reportable Rouleaux Not Reportable Hemoglobin C Crystals Not Reportable Schistocytes Few Malaria parasites Not Reportable [place] Bodies Not Reportable Hem Pathologist Commnt No PT 18.4 H INR 1.54 H ABG pH 7.464 H POC ABG pCO2 38.3 POC ABG pO2 104.6 POC ABG HCO3 26.9 POC ABG Base Excess 3.0 ABG Hemoglobin 9.9 L ABG Oxyhemoglobin 97.4 ABG Methemoglobin 0.3 ABG Sodium 131.6 L ABG Potassium 4.1 ABG Chloride 97.0 L ABG Glucose 281 H Carboxyhemoglobin 0.1 L FiO2 70.0 Sodium Potassium Chloride Carbon Dioxide Anion Gap BUN Creatinine Estimated GFR BUN/Creatinine Ratio Glucose POC Glucose Calcium Total Bilirubin AST ALT Alkaline Phosphatase Total Protein Albumin Albumin/Globulin Ratio Arterial Blood Glucose 281 H Arterial Blood Ionized Calcium 3.9 L 09/10/20 12:06 WBC RBC Hgb Hct MCV MCH MCHC RDW Plt Count Add Manual Diff Total Counted Seg Neuts % (Manual) Lymphocytes % (Manual) Monocytes % (Manual) Nucleated RBC % Seg Neutrophils # Man Band Neutrophils # Lymphocytes # (Manual) Abs React Lymphs (Man) Monocytes # (Manual) Eosinophils # (Manual) Basophils # (Manual) Metamyelocytes # Myelocytes # Promyelocytes # Blast Cells # WBC Morphology Hypersegmented Neuts Hyposegmented Neuts Hypogranular Neuts Smudge Cells Toxic Granulation Toxic Vacuolation Dohle Bodies Pelger-Huet Anomaly Justus Rods Platelet Estimate Clumped Platelets Plt Clumps, EDTA Large Platelets Giant Platelets Platelet Satelliting Plt Morphology Comment RBC Morphology Dimorphic RBCs Polychromasia Hypochromasia Poikilocytosis Anisocytosis Microcytosis Macrocytosis Spherocytes Pappenheimer Bodies Sickle Cells Target Cells Tear Drop Cells Ovalocytes Helmet Cells [place] Bodies [place] Rings [place] Cells Bite Cells Crenated Cell Elliptocytes Acanthocytes (Spur) Rouleaux Hemoglobin C Crystals Schistocytes Malaria parasites [place] Bodies Hem Pathologist Commnt PT INR ABG pH POC ABG pCO2 POC ABG pO2 POC ABG HCO3 POC ABG Base Excess ABG Hemoglobin ABG Oxyhemoglobin ABG Methemoglobin ABG Sodium ABG Potassium ABG Chloride ABG Glucose Carboxyhemoglobin FiO2 Sodium Potassium Chloride Carbon Dioxide Anion Gap BUN Creatinine Estimated GFR BUN/Creatinine Ratio Glucose POC Glucose 298 H Calcium Total Bilirubin AST ALT Alkaline Phosphatase Total Protein Albumin Albumin/Globulin Ratio Arterial Blood Glucose Arterial Blood Ionized Calcium
[2020-09-10] MEDS: AZITHROMYCIN/NS 500 MG/250 ML 500 MG/250 ML BAG IV SCH (17:49)
--- NOTE | 2020-09-10 19:59 | Progress Note ---
Assessment and Plan Critical care statement The high probability OF a clinically significant sudden or life-threatening deterioration of the cardiorespiratory system and endocrine system required my full and direct attention, intervention and postoperative management. The aggregate critical care time was 40 minutes. The time is in addition to time spent performing reported procedures but includes the followin: Data review and interpretation 2: Patient assessment and monitoring of vital signs 3: Documentation 4:: Medication orders and management Assessment and Plan - Patient Problems --Cardiac arrest Current Visit: Yes Status: Acute Plan to address problem: Patient currently intubated and sedated. Admitted into the intensive care unit. Senior Fire Protection Engineer has been consulted for evaluation. Acute kidney injury Secondary to ATN-patient getting emergent hemodialysis because of the creatinine and high potassium --Respiratory acidosis Current Visit: Yes Status: Acute Plan to address problem: Secondary to the underlying pneumonia. Will monitor ABG. Patient intubated and weaning in progress --Hyperkalemia Treat High K Emergent HD per Nephrology Hyperkalemia resolved --Coronavirus infection Current Visit: Yes Status: Acute Plan to address problem: Patient placed on isolation precautions. He has been started on empiric IV antibiotics. Patient on IV Decadron No remdesivir because of the kidney injury and the liver injury --Transaminitis Current Visit: Yes Status: Acute Plan to address problem: Possibly secondary to ischemic liver injury Also possible the Covid infection is caused the transaminitis No Tylenol as needed Low-dose ibuprofen if necessary for temperature more than 100 --Morbid obesity Current Visit: Yes Status: Acute Plan to address problem: Patient has poor prognosis --DVT prophylaxis Current Visit: Yes Status: Acute Plan to address problem: Patient placed on subcutaneous Lovenox. --Full code status Current Visit: Yes Status: Acute Plan to address problem: Patient is a full code. We will attempt to get further information from family. Critical care time spent is40 minutes Subjective Date of service: 09/10/20 Principal diagnosis: Abnormal LFTs Interval history: 65-year-old male brought into the emergency room today by EMS for car diopulmonary arrest. Patient was said to be awaiting a Covid test when he was said to have passed out. CPR was started and also patient was defibrillated once. CPR was continued on the field by EMS and patient had a spontaneous return of circulation. Upon arrival in the emergency room patient had been receiving bag valve mask ventilation through a Dayron airway. He was tachycardic and was subsequently intubated in the emergency room. Most of the history was obtained from the ER staff as patient is already intubated. Work-up in the emergency room today chest x-ray reveals:Bilateral airspace disease which could be related to alveolar edema or infection. CT scan of the head was unremarkable. Patient could not had a CT angiogram because of his size. Patient is being admitted for cardiopulmonary arrest and also possible Covid pneumonia. Day #2 Patient intubated Patient has high transaminitis status. S/p cardiac arrest ACLS and return of spontaneous circulation Hypoxic brain injury in the differential Covid pneumonia Day #3 Patient intubated Unresponsive S/p cardiac arrest Transaminitis-severe Covid pneumonia Day #4 Patient having seizures Patient is intubated Severe transaminitis Covid pneumonia Possible hypoxic brain injury ATN Objective - Exam Narrative Exam: Patient is intubated - Constitutional Vitals: Vital Signs - 12hr 09/10/20 09/10/20 09/10/20 08:00 08:11 08:21 Temperature Pulse Rate 74 69 88 Pulse Rate [ 60 From Monitor] Respiratory 29 H 23 29 H Rate Blood Pressure 168/75 168/75 145/56 O2 Sat by Pulse 100 100 90 Oximetry 09/10/20 09/10/20 09/10/20 08:31 08:41 08:51 Temperature Pulse Rate 87 80 79 Pulse Rate [ From Monitor] Respiratory 16 28 H 23 Rate Blood Pressure 189/80 189/80 159/69 O2 Sat by Pulse 99 95 96 Oximetry 09/10/20 09/10/20 09/10/20 09:00 09:11 09:21 Temperature Pulse Rate 78 77 76 Pulse Rate [ From Monitor] Respiratory 18 20 17 Rate Blood Pressure 159/64 159/64 158/66 O2 Sat by Pulse 96 96 97 Oximetry 09/10/20 09/10/20 09/10/20 09:30 09:41 09:51 Temperature Pulse Rate 77 76 77 Pulse Rate [ From Monitor] Respiratory 30 H 17 20 Rate Blood Pressure 155/67 155/67 153/63 O2 Sat by Pulse 97 97 98 Oximetry 09/10/20 09/10/20 09/10/20 10:00 10:11 10:21 Temperature Pulse Rate 76 74 73 Pulse Rate [ From Monitor] Respiratory 30 H 18 22 Rate Blood Pressure 160/70 160/70 163/66 O2 Sat by Pulse 98 97 97 Oximetry 09/10/20 09/10/20 09/10/20 10:30 10:41 10:51 Temperature Pulse Rate 72 72 72 Pulse Rate [ From Monitor] Respiratory 29 H 30 H 31 H Rate Blood Pressure 163/71 163/71 165/71 O2 Sat by Pulse 97 97 98 Oximetry 09/10/20 09/10/20 09/10/20 11:01 11:11 11:21 Temperature Pulse Rate 74 74 73 Pulse Rate [ From Monitor] Respiratory 26 H 30 H 30 H Rate Blood Pressure 163/78 163/78 171/73 O2 Sat by Pulse 97 100 99 Oximetry 09/10/20 09/10/20 09/10/20 11:31 11:41 11:51 Temperature Pulse Rate 72 73 73 Pulse Rate [ From Monitor] Respiratory 29 H 30 H 30 H Rate Blood Pressure 156/66 156/66 159/66 O2 Sat by Pulse 97 97 97 Oximetry 09/10/20 09/10/20 09/10/20 12:00 12:11 12:21 Temperature 99.1 F Pulse Rate 72 71 72 Pulse Rate [ 71 From Monitor] Respiratory 30 H 30 H 30 H Rate Blood Pressure 155/65 155/65 155/65 O2 Sat by Pulse 95 96 96 Oximetry 09/10/20 09/10/20 09/10/20 12:30 12:41 12:51 Temperature Pulse Rate 71 71 70 Pulse Rate [ From Monitor] Respiratory 30 H 30 H 30 H Rate Blood Pressure 151/64 151/64 158/65 O2 Sat by Pulse 92 95 95 Oximetry 09/10/20 09/10/20 09/10/20 13:01 13:11 13:20 Temperature Pulse Rate 71 71 73 Pulse Rate [ From Monitor] Respiratory 30 H 30 H 30 H Rate Blood Pressure 154/63 154/63 154/65 O2 Sat by Pulse 92 95 95 Oximetry 09/10/20 09/10/20 09/10/20 13:30 13:40 13:51 Temperature Pulse Rate 73 71 71 Pulse Rate [ From Monitor] Respiratory 30 H 30 H 30 H Rate Blood Pressure 154/65 167/69 O2 Sat by Pulse 99 96 97 Oximetry 09/10/20 09/10/20 09/10/20 14:00 14:11 14:21 Temperature Pulse Rate 71 70 69 Pulse Rate [ From Monitor] Respiratory 30 H 30 H 30 H Rate Blood Pressure 159/65 159/65 153/64 O2 Sat by Pulse 95 96 97 Oximetry 09/10/20 09/10/20 09/10/20 14:30 14:41 14:51 Temperature Pulse Rate 69 69 69 Pulse Rate [ From Monitor] Respiratory 30 H 30 H 30 H Rate Blood Pressure 159/66 159/66 153/65 O2 Sat by Pulse 96 96 97 Oximetry 09/10/20 09/10/20 09/10/20 15:01 15:11 15:21 Temperature Pulse Rate 67 71 69 Pulse Rate [ From Monitor] Respiratory 30 H 30 H 30 H Rate Blood Pressure 155/63 155/63 153/62 O2 Sat by Pulse 96 97 98 Oximetry 09/10/20 09/10/20 09/10/20 15:31 15:41 15:51 Temperature Pulse Rate 70 73 103 H Pulse Rate [ From Monitor] Respiratory 30 H 30 H 21 Rate Blood Pressure 153/62 153/62 157/65 O2 Sat by Pulse 93 96 97 Oximetry 09/10/20 09/10/20 09/10/20 15:55 16:00 16:01 Temperature 99.0 F Pulse Rate 131 H 66 129 H Pulse Rate [ 66 From Monitor] Respiratory 28 H 25 H Rate Blood Pressure 157/65 168/64 O2 Sat by Pulse 96 98 100 Oximetry 09/10/20 09/10/20 09/10/20 16:11 16:21 16:30 Temperature Pulse Rate 77 78 75 Pulse Rate [ From Monitor] Respiratory 30 H 30 H 30 H Rate Blood Pressure 168/64 145/58 144/61 O2 Sat by Pulse 97 97 94 Oximetry 09/10/20 09/10/20 09/10/20 16:41 16:51 17:01 Temperature Pulse Rate 71 69 71 Pulse Rate [ From Monitor] Respiratory 30 H 30 H 30 H Rate Blood Pressure 144/61 145/57 141/55 O2 Sat by Pulse 98 98 95 Oximetry 09/10/20 09/10/20 09/10/20 17:11 17:21 17:30 Temperature Pulse Rate 70 70 68 Pulse Rate [ From Monitor] Respiratory 30 H 30 H 30 H Rate Blood Pressure 141/55 140/56 141/54 O2 Sat by Pulse 98 98 96 Oximetry 09/10/20 09/10/20 09/10/20 17:41 17:51 18:01 Temperature Pulse Rate 70 70 72 Pulse Rate [ From Monitor] Respiratory 30 H 30 H 30 H Rate Blood Pressure 141/54 140/54 148/60 O2 Sat by Pulse 98 98 96 Oximetry 09/10/20 09/10/20 09/10/20 18:11 18:21 18:31 Temperature Pulse Rate 70 71 69 Pulse Rate [ From Monitor] Respiratory Rate Blood Pressure 148/60 138/59 135/57 O2 Sat by Pulse 96 97 96 Oximetry 09/10/20 09/10/20 09/10/20 18:41 18:51 19:00 Temperature Pulse Rate 69 67 66 Pulse Rate [ From Monitor] Respiratory Rate Blood Pressure 135/57 130/59 129/56 O2 Sat by Pulse 98 98 98 Oximetry 09/10/20 09/10/20 19:11 19:31 Temperature 101.9 F H Pulse Rate 66 Pulse Rate [ From Monitor] Respiratory Rate Blood Pressure 129/56 O2 Sat by Pulse 98 Oximetry General appearance: Present: no acute distress, well-nourished - EENT Eyes: PERRL, EOM intact ENT: hearing intact, clear oral mucosa Ears: bilateral: normal - Neck Neck: supple, normal ROM - Respiratory Respiratory effort: normal Respiratory: bilateral: CTA - Breasts Breasts: normal - Cardiovascular Heart rate: 78 Rhythm: regular Heart Sounds: Present: S1 & S2. Absent: gallop, rub Extremities: pulses intact, No edema, normal color, Full ROM - Gastrointestinal General gastrointestinal: Present: soft, non-tender, non-distended, normal bowel sounds - Genitourinary Male genitourinary: normal - Integumentary Integumentary: clear, warm, dry - Musculoskeletal Musculoskeletal: 1, strength equal bilaterally - Neurologic Neurologic: moves all extremities, other (Patient sedated and intubated) - Psychiatric Psychiatric: other (Patient sedated and intubated) - Allied health notes Allied health notes reviewed: nursing, case management - Labs CBC & Chem 7: 09/10/20 04:05 09/10/20 04:00 Labs: Abnormal lab results 09/09/20 09/10/20 09/10/20 Range/Units 18:22 04:00 04:05 WBC (4.5-11.0) K/mm3 RBC (3.65-5.03) M/mm3 Hgb (11.8-15.2) gm/dl Hct (35.5-45.6) % RDW (13.2-15.2) % Seg Neuts % (Manual) (40.0-70.0) % Lymphocytes % (Manual) (13.4-35.0) % Monocytes % (Manual) (0.0-7.3) % Seg Neutrophils # Man (1.8-7.7) K/mm3 Lymphocytes # (Manual) (1.2-5.4) K/mm3 Monocytes # (Manual) (0.0-0.8) K/mm3 PT 18.4 H (12.2-14.9) Sec. INR 1.54 H (0.87-1.13) ABG pH (7.320-7.450) ABG Hemoglobin (12.0-17.5) ABG Sodium (136.0-145.0) mmol/L ABG Chloride (98-107) mmol/L ABG Glucose (65-95) mg/dL Carboxyhemoglobin (0.5-1.5) Sodium 134 L (137-145) mmol/L Chloride 93.7 L (98-107) mmol/L BUN 46 H (9-20) mg/dL Creatinine 3.6 H (0.8-1.3) mg/dL Glucose 275 H (75-100) mg/dL POC Glucose 211 H (70-105) mg/dL Calcium 7.7 L (8.4-10.2) mg/dL Total Bilirubin 1.30 H (0.1-1.2) mg/dL AST 5899 H (5-40) units/L ALT 6440 H (7-56) units/L Total Protein 5.9 L (6.3-8.2) g/dL Albumin 3.3 L (3.9-5) g/dL Arterial Blood Glucose (65-95) mg/dL Arterial Blood Ionized Calcium (4.6-5.3) mg/dL 09/10/20 09/10/20 09/10/20 Range/Units 04:05 04:35 12:06 WBC 15.0 H (4.5-11.0) K/mm3 RBC 3.06 L (3.65-5.03) M/mm3 Hgb 8.6 L (11.8-15.2) gm/dl Hct 25.8 L (35.5-45.6) % RDW 18.0 H (13.2-15.2) % Seg Neuts % (Manual) 86.0 H (40.0-70.0) % Lymphocytes % (Manual) 6.0 L (13.4-35.0) % Monocytes % (Manual) 8.0 H (0.0-7.3) % Seg Neutrophils # Man 12.9 H (1.8-7.7) K/mm3 Lymphocytes # (Manual) 0.9 L (1.2-5.4) K/mm3 Monocytes # (Manual) 1.2 H (0.0-0.8) K/mm3 PT (12.2-14.9) Sec. INR (0.87-1.13) ABG pH 7.464 H (7.320-7.450) ABG Hemoglobin 9.9 L (12.0-17.5) ABG Sodium 131.6 L (136.0-145.0) mmol/L ABG Chloride 97.0 L (98-107) mmol/L ABG Glucose 281 H (65-95) mg/dL Carboxyhemoglobin 0.1 L (0.5-1.5) Sodium (137-145) mmol/L Chloride (98-107) mmol/L BUN (9-20) mg/dL Creatinine (0.8-1.3) mg/dL Glucose (75-100) mg/dL POC Glucose 298 H (70-105) mg/dL Calcium (8.4-10.2) mg/dL Total Bilirubin (0.1-1.2) mg/dL AST (5-40) units/L ALT (7-56) units/L Total Protein (6.3-8.2) g/dL Albumin (3.9-5) g/dL Arterial Blood Glucose 281 H (65-95) mg/dL Arterial Blood Ionized Calcium 3.9 L (4.6-5.3) mg/dL 09/10/20 Range/Units 17:42 WBC (4.5-11.0) K/mm3 RBC (3.65-5.03) M/mm3 Hgb (11.8-15.2) gm/dl Hct (35.5-45.6) % RDW (13.2-15.2) % Seg Neuts % (Manual) (40.0-70.0) % Lymphocytes % (Manual) (13.4-35.0) % Monocytes % (Manual) (0.0-7.3) % Seg Neutrophils # Man (1.8-7.7) K/mm3 Lymphocytes # (Manual) (1.2-5.4) K/mm3 Monocytes # (Manual) (0.0-0.8) K/mm3 PT (12.2-14.9) Sec. INR (0.87-1.13) ABG pH (7.320-7.450) ABG Hemoglobin (12.0-17.5) ABG Sodium (136.0-145.0) mmol/L ABG Chloride (98-107) mmol/L ABG Glucose (65-95) mg/dL Carboxyhemoglobin (0.5-1.5) Sodium (137-145) mmol/L Chloride (98-107) mmol/L BUN (9-20) mg/dL Creatinine (0.8-1.3) mg/dL Glucose (75-100) mg/dL POC Glucose 340 H (70-105) mg/dL Calcium (8.4-10.2) mg/dL Total Bilirubin (0.1-1.2) mg/dL AST (5-40) units/L ALT (7-56) units/L Total Protein (6.3-8.2) g/dL Albumin (3.9-5) g/dL Arterial Blood Glucose (65-95) mg/dL Arterial Blood Ionized Calcium (4.6-5.3) mg/dL HEART Score - HEART Score Troponin: Troponin T 0.076 ng/mL (0.00-0.029) H 09/07/20 14:00
[2020-09-10] MEDS: ACETAMINOPHEN 325 MG/10.15 ML ORAL LIQD UNIT DOSE PO PRN (21:42)
--- NOTE | 2020-09-11 03:11 | XRay Report ---
CHEST 1 VIEW 2:41 AM INDICATION / CLINICAL INFORMATION: Follow-up respiratory failure. COMPARISON: Yesterday. FINDINGS: SUPPORT DEVICES: The positions of the endotracheal and nasogastric tubes have not changed. HEART / MEDIASTINUM: Unchanged. LUNGS / PLEURA: Parenchymal disease in the left retrocardiac region has improved. Pleuroparenchymal d isease in the right mid to lower hemithorax appears mildly increased. No pneumothorax. ADDITIONAL FINDINGS: No significant additional findings. IMPRESSION: 1. Improving left retrocardiac parenchymal disease. 2. Pleuroparenchymal opacity in the right mid to lower hemithorax appears mildly increased. Signer Name: Florentin Iqbal MD Signed: 09/11/2020 3:06 AM Workstation Name: [id number]
[2020-09-11] MEDS: LORazepam 2 MG/ML VIAL IV PRN (04:13)
[2020-09-11] MEDS ORDERED: INSULIN LISPRO 100 UNIT/ML SUB-Q ONE (05:31)
[2020-09-11 05:52] LABS: INR 1.39 (0.87-1.13)
[2020-09-11 06:23] LABS: ABG Base Excess 5.4 mmol/L (-2.0-3.0); ABG HCO3 28.1 mmol/L (20.0-26.0); ABG Methemoglobin 0.4 % (0.0-1.5); ABG Oxygen Saturation 98.4 % (95.0-99.0); ABG PCO2 33.4 mm Hg; ABG PH 7.543 pH Units (7.350-7.450); ABG PO2 112.1 mm Hg (80.0-90.0)
--- NOTE | 2020-09-11 09:46 | Progress Note ---
Assessment and Plan 65 y/o male with out of hospital cardiac arrest now sedated on ativan for possible seizures. 09/11/20: Will increase Keppra to 1500 BID given patient size. Continue Diprovan drip. Getting EEG today. HD per renal. Needs neurology consult however if patient is in status, needs to be transferred to an institution that can provide continuous EEG monitoring. Overll prognosis is very guarded to poor. Have not spoken to yet today. 09/10/20: Loaded with keppra and will start on Keppra BID. Needs EEG on therapy as well as OFF. If patient is in status, needs transfer to a location with continuous EEG capabilities. FiO2 has been weaned back down and is now at 60%, sats in the high 90's. HD per renal. Coags improving. Overall prognosis is guarded to poor. Spoke with on phone yesterday. Consult neurology tomorrow as not available on the weekend. Suggest checking for antibodies as he may be a candidate for convalsescent plasma. Per the , he was diagnosed with COVID on and spent 6 days inpatient at the [facility]. Remains positive now with multisystem organ failure. Explained to that outcome may not be good but need more time to assess. 09/09/20: EEG ordered on yesterday but not done. If done not read. Continue diprovan for now until EEG can be done or interpreted. State Coags but given his oozing from his vascath, will give Vitamin K and FFP. Patient is covid positive so agree with steroids. Not a candidate for remdesivir. Need to check for antibodies, may be a candidate for convalescent plasma. HD per renal. Given improvement in pH will stop bicarb drip. Feed patient. 1. Stop sedation 2. EEG 3. Needs neuro consult. 4. Art line placement 5. Stat repeat of labs, if renal function is truly that bad, will need renal consult. 6. Follow up COVID testing 7. Likely needs echo 8. Will place on bicarb drip. CCT 31 minutes. Subjective Date of service: 09/11/20 Principal diagnosis: Abnormal LFTs Interval history: Patient continues to seize off propofol. Pulm status stable to improving. Objective Vital Signs - 12hr 09/10/20 09/10/20 09/10/20 21:51 22:01 22:11 Temperature Pulse Rate 67 67 64 Pulse Rate [ From Monitor] Respiratory Rate Blood Pressure 141/59 138/56 138/56 O2 Sat by Pulse 97 96 97 Oximetry 09/10/20 09/10/20 09/10/20 22:21 22:31 22:41 Temperature Pulse Rate 64 65 61 Pulse Rate [ From Monitor] Respiratory Rate Blood Pressure 139/55 136/55 139/55 O2 Sat by Pulse 97 97 97 Oximetry 09/10/20 09/10/20 09/10/20 22:51 23:01 23:05 Temperature Pulse Rate 62 60 65 Pulse Rate [ From Monitor] Respiratory Rate Blood Pressure 138/54 137/57 136/55 O2 Sat by Pulse 97 97 97 Oximetry 09/10/20 09/10/20 09/10/20 23:11 23:21 23:25 Temperature 101.2 F H Pulse Rate 60 66 Pulse Rate [ From Monitor] Respiratory Rate Blood Pressure 136/55 137/57 O2 Sat by Pulse 97 97 Oximetry 09/10/20 09/10/20 09/10/20 23:31 23:41 23:51 Temperature Pulse Rate 61 62 60 Pulse Rate [ From Monitor] Respiratory Rate Blood Pressure 123/58 123/58 141/59 O2 Sat by Pulse 96 97 97 Oximetry 09/11/20 09/11/20 09/11/20 00:00 00:01 00:05 Temperature Pulse Rate 62 62 65 Pulse Rate [ 62 From Monitor] Respiratory 32 H Rate Blood Pressure 136/52 136/52 O2 Sat by Pulse 98 96 97 Oximetry 09/11/20 09/11/20 09/11/20 00:11 00:21 00:30 Temperature Pulse Rate 63 63 61 Pulse Rate [ From Monitor] Respiratory Rate Blood Pressure 136/52 132/54 135/59 O2 Sat by Pulse 97 97 97 Oximetry 09/11/20 09/11/20 09/11/20 00:41 00:51 01:01 Temperature Pulse Rate 60 60 63 Pulse Rate [ From Monitor] Respiratory Rate Blood Pressure 135/59 135/55 135/54 O2 Sat by Pulse 97 97 96 Oximetry 09/11/20 09/11/20 09/11/20 01:11 01:21 01:31 Temperature Pulse Rate 58 L 60 61 Pulse Rate [ From Monitor] Respiratory Rate Blood Pressure 135/54 134/54 134/54 O2 Sat by Pulse 97 97 95 Oximetry 09/11/20 09/11/20 09/11/20 01:41 01:51 02:01 Temperature Pulse Rate 62 58 L 58 L Pulse Rate [ From Monitor] Respiratory Rate Blood Pressure 134/54 136/52 131/58 O2 Sat by Pulse 96 96 96 Oximetry 09/11/20 09/11/20 09/11/20 02:11 02:21 02:31 Temperature Pulse Rate 60 60 60 Pulse Rate [ From Monitor] Respiratory Rate Blood Pressure 131/58 137/55 135/58 O2 Sat by Pulse 97 97 95 Oximetry 09/11/20 09/11/20 09/11/20 02:41 02:51 03:01 Temperature Pulse Rate 64 64 61 Pulse Rate [ From Monitor] Respiratory Rate Blood Pressure 135/58 138/52 137/56 O2 Sat by Pulse 97 97 96 Oximetry 09/11/20 09/11/20 09/11/20 03:07 03:11 03:21 Temperature 99.8 F H Pulse Rate 59 L 61 Pulse Rate [ From Monitor] Respiratory Rate Blood Pressure 137/56 133/58 O2 Sat by Pulse 97 97 Oximetry 09/11/20 09/11/20 09/11/20 03:31 03:32 03:41 Temperature Pulse Rate 59 L 58 L 60 Pulse Rate [ From Monitor] Respiratory Rate Blood Pressure 138/56 133/58 138/56 O2 Sat by Pulse 95 97 97 Oximetry 09/11/20 09/11/20 09/11/20 03:51 04:00 04:01 Temperature Pulse Rate 61 60 60 Pulse Rate [ 60 From Monitor] Respiratory 345 H Rate Blood Pressure 135/54 138/57 O2 Sat by Pulse 96 98 96 Oximetry 09/11/20 09/11/20 09/11/20 04:11 04:21 04:31 Temperature Pulse Rate 62 59 L 57 L Pulse Rate [ From Monitor] Respiratory Rate Blood Pressure 138/57 137/54 136/50 O2 Sat by Pulse 97 97 96 Oximetry 09/11/20 09/11/20 09/11/20 04:41 04:51 05:01 Temperature Pulse Rate 58 L 61 Pulse Rate [ From Monitor] Respiratory Rate Blood Pressure 136/50 135/55 116/46 O2 Sat by Pulse 97 96 97 Oximetry 09/11/20 09/11/20 09/11/20 05:11 05:21 05:31 Temperature Pulse Rate 61 65 65 Pulse Rate [ From Monitor] Respiratory 29 H 30 H 30 H Rate Blood Pressure 116/46 109/52 108/57 O2 Sat by Pulse 97 97 97 Oximetry 09/11/20 09/11/20 09/11/20 05:41 05:51 06:01 Temperature Pulse Rate 59 L 63 61 Pulse Rate [ From Monitor] Respiratory 30 H 30 H 30 H Rate Blood Pressure 108/57 111/63 111/63 O2 Sat by Pulse 97 97 97 Oximetry 09/11/20 09/11/20 09/11/20 06:11 06:21 06:31 Temperature Pulse Rate 60 66 71 Pulse Rate [ From Monitor] Respiratory 30 H 30 H 30 H Rate Blood Pressure 145/57 142/51 123/53 O2 Sat by Pulse 97 97 96 Oximetry 09/11/20 09/11/20 09/11/20 06:41 06:51 07:01 Temperature Pulse Rate 62 62 99 H Pulse Rate [ From Monitor] Respiratory 30 H 30 H 23 Rate Blood Pressure 123/53 133/62 133/62 O2 Sat by Pulse 97 97 97 Oximetry 09/11/20 09/11/20 09/11/20 07:11 07:21 07:30 Temperature Pulse Rate 63 61 60 Pulse Rate [ From Monitor] Respiratory 30 H 30 H 30 H Rate Blood Pressure 117/47 130/55 130/55 O2 Sat by Pulse 98 98 98 Oximetry 09/11/20 09/11/20 09/11/20 07:41 07:51 08:00 Temperature 98.9 F Pulse Rate 59 L 63 63 Pulse Rate [ From Monitor] Respiratory 30 H 30 H Rate Blood Pressure 128/49 128/49 O2 Sat by Pulse 98 98 Oximetry 09/11/20 09/11/20 09/11/20 08:01 08:02 08:11 Temperature Pulse Rate 63 58 L 61 Pulse Rate [ From Monitor] Respiratory 30 H 30 H Rate Blood Pressure 133/50 133/50 133/50 O2 Sat by Pulse 97 98 98 Oximetry 09/11/20 09/11/20 09/11/20 08:21 08:31 08:41 Temperature Pulse Rate 59 L 58 L 61 Pulse Rate [ From Monitor] Respiratory 30 H 30 H 30 H Rate Blood Pressure 122/45 123/48 123/48 O2 Sat by Pulse 98 98 98 Oximetry Constitutional: comatose, other (morbidly obese) Eyes: non-icteric ENT: other (orally intubated and sedated) Neck: supple Effort: normal Ascultation: Bilateral: diminished breath sounds Percussion: Bilateral: not dull Cardiovascular: other (bradycardic) Gastrointestinal: soft CBC and BMP: 09/10/20 04:05 09/10/20 04:00 ABG, PT/INR, D-dimer: ABG ABG pH 7.543 pH Units (7.350-7.450) H 09/11/20 05:40 POC ABG pCO2 38.3 mmHg (32.0-48.0) 09/10/20 04:35 ABG pCO2 33.4 mm Hg 09/11/20 05:40 POC ABG pO2 104.6 mmHg (83-108) 09/10/20 04:35 ABG pO2 112.1 mm Hg (80.0-90.0) H 09/11/20 05:40 POC ABG HCO3 26.9 09/10/20 04:35 ABG O2 Saturation 98.4 % (95.0-99.0) 09/11/20 05:40 PT/INR, D-dimer PT 16.9 Sec. (12.2-14.9) H 09/11/20 04:44 INR 1.39 (0.87-1.13) H 09/11/20 04:44 D-Dimer 8315.85 ng/mlDDU (0-234) H 09/07/20 14:00 Abnormal lab findings: Abnormal Labs 09/07/20 09/07/20 09/07/20 13:08 14:00 14:00 WBC 15.7 H RBC Hgb 10.2 L Hct 32.5 L MCHC 31 L RDW 17.5 H Lymph % (Auto) [place] % (Auto) Lymph # (Auto) [place] # (Auto) Seg Neutrophils % Seg Neuts % (Manual) 72.0 H Lymphocytes % (Manual) Monocytes % (Manual) 8.0 H Nucleated RBC % Seg Neutrophils # Seg Neutrophils # Man 11.3 H Lymphocytes # (Manual) Monocytes # (Manual) 1.3 H PT INR D-Dimer 8315.85 H ABG pH POC ABG pCO2 POC ABG pO2 ABG pO2 ABG HCO3 ABG Base Excess ABG Hemoglobin ABG Oxyhemoglobin ABG Sodium ABG Potassium ABG Chloride ABG Glucose Carboxyhemoglobin Sodium Potassium Chloride Carbon Dioxide BUN Creatinine Glucose POC Glucose Lactic Acid Calcium Phosphorus Ferritin Total Bilirubin Direct Bilirubin AST ALT Lactate Dehydrogenase Total Creatine Kinase Troponin T Total Protein Albumin Arterial Blood Glucose Arterial Blood Ionized Calcium Urine pH 8.0 H Urine Creatinine Salicylates Acetaminophen Coronavirus (PCR) 09/07/20 09/07/20 09/07/20 14:00 14:00 14:00 WBC RBC Hgb Hct MCHC RDW Lymph % (Auto) [place] % (Auto) Lymph # (Auto) [place] # (Auto) Seg Neutrophils % Seg Neuts % (Manual) Lymphocytes % (Manual) Monocytes % (Manual) Nucleated RBC % Seg Neutrophils # Seg Neutrophils # Man Lymphocytes # (Manual) Monocytes # (Manual) PT INR D-Dimer ABG pH POC ABG pCO2 POC ABG pO2 ABG pO2 ABG HCO3 ABG Base Excess ABG Hemoglobin ABG Oxyhemoglobin ABG Sodium ABG Potassium ABG Chloride ABG Glucose Carboxyhemoglobin Sodium Potassium Chloride Carbon Dioxide BUN Creatinine Glucose POC Glucose Lactic Acid 4.30 H* Calcium Phosphorus Ferritin > 2000.0 H Total Bilirubin Direct Bilirubin AST ALT Lactate Dehydrogenase 882 H Total Creatine Kinase 477 H Troponin T 0.076 H Total Protein Albumin Arterial Blood Glucose Arterial Blood Ionized Calcium Urine pH Urine Creatinine Salicylates Acetaminophen Coronavirus (PCR) 09/07/20 09/07/20 09/07/20 14:00 14:00 14:00 WBC RBC Hgb Hct MCHC RDW Lymph % (Auto) [place] % (Auto) Lymph # (Auto) [place] # (Auto) Seg Neutrophils % Seg Neuts % (Manual) Lymphocytes % (Manual) Monocytes % (Manual) Nucleated RBC % Seg Neutrophils # Seg Neutrophils # Man Lymphocytes # (Manual) Monocytes # (Manual) PT INR D-Dimer ABG pH POC ABG pCO2 POC ABG pO2 ABG pO2 ABG HCO3 ABG Base Excess ABG Hemoglobin ABG Oxyhemoglobin ABG Sodium ABG Potassium ABG Chloride ABG Glucose Carboxyhemoglobin Sodium Potassium Chloride Carbon Dioxide BUN Creatinine 1.8 H Glucose POC Glucose Lactic Acid Calcium Phosphorus Ferritin Total Bilirubin Direct Bilirubin AST 310 H ALT 339 H Lactate Dehydrogenase Total Creatine Kinase Troponin T Total Protein Albumin 3.6 L Arterial Blood Glucose Arterial Blood Ionized Calcium Urine pH Urine Creatinine Salicylates < 0.3 L Acetaminophen 5.0 L Coronavirus (PCR) 09/07/20 09/08/20 09/08/20 14:26 04:00 04:17 WBC RBC Hgb Hct MCHC RDW Lymph % (Auto) [place] % (Auto) Lymph # (Auto) [place] # (Auto) Seg Neutrophils % Seg Neuts % (Manual) Lymphocytes % (Manual) Monocytes % (Manual) Nucleated RBC % Seg Neutrophils # Seg Neutrophils # Man Lymphocytes # (Manual) Monocytes # (Manual) PT INR D-Dimer ABG pH 7.037 L 7.095 L POC ABG pCO2 92.4 H 68.0 H POC ABG pO2 130.8 H 43.5 L ABG pO2 ABG HCO3 ABG Base Excess ABG Hemoglobin 11.3 L 10.6 L ABG Oxyhemoglobin 70.8 L ABG Sodium ABG Potassium 7.0 H ABG Chloride 108.0 H ABG Glucose Carboxyhemoglobin 0.3 L Sodium Potassium 8.4 H* D Chloride Carbon Dioxide 17 L D BUN 38 H Creatinine 3.9 H D Glucose POC Glucose Lactic Acid Calcium 7.7 L D Phosphorus Ferritin Total Bilirubin Direct Bilirubin AST ALT Lactate Dehydrogenase Total Creatine Kinase Troponin T Total Protein Albumin Arterial Blood Glucose Arterial Blood Ionized Calcium 4.5 L Urine pH Urine Creatinine Salicylates Acetaminophen Coronavirus (PCR) 09/08/20 09/08/20 09/08/20 05:00 05:25 12:02 WBC RBC Hgb Hct MCHC RDW Lymph % (Auto) [place] % (Auto) Lymph # (Auto) [place] # (Auto) Seg Neutrophils % Seg Neuts % (Manual) Lymphocytes % (Manual) Monocytes % (Manual) Nucleated RBC % Seg Neutrophils # Seg Neutrophils # Man Lymphocytes # (Manual) Monocytes # (Manual) PT INR D-Dimer ABG pH 7.088 L POC ABG pCO2 69.1 H POC ABG pO2 35.2 L ABG pO2 ABG HCO3 ABG Base Excess ABG Hemoglobin 10.9 L ABG Oxyhemoglobin 57.1 L ABG Sodium ABG Potassium 7.0 H ABG Chloride 108.0 H ABG Glucose Carboxyhemoglobin 0.4 L Sodium Potassium 8.1 H* Chloride Carbon Dioxide 17 L BUN 38 H Creatinine 3.7 H Glucose POC Glucose Lactic Acid Calcium 8.0 L Phosphorus 8.00 H Ferritin Total Bilirubin Direct Bilirubin 0.5 H AST 3696 H ALT 3331 H Lactate Dehydrogenase Total Creatine Kinase Troponin T Total Protein Albumin 3.5 L Arterial Blood Glucose Arterial Blood Ionized Calcium 4.4 L Urine pH Urine Creatinine Salicylates Acetaminophen Coronavirus (PCR) 09/08/20 09/08/20 09/08/20 16:31 22:36 Unknown WBC RBC Hgb Hct MCHC RDW Lymph % (Auto) [place] % (Auto) Lymph # (Auto) [place] # (Auto) Seg Neutrophils % Seg Neuts % (Manual) Lymphocytes % (Manual) Monocytes % (Manual) Nucleated RBC % Seg Neutrophils # Seg Neutrophils # Man Lymphocytes # (Manual) Monocytes # (Manual) PT INR D-Dimer ABG pH POC ABG pCO2 POC ABG pO2 ABG pO2 ABG HCO3 ABG Base Excess ABG Hemoglobin ABG Oxyhemoglobin ABG Sodium ABG Potassium ABG Chloride ABG Glucose Carboxyhemoglobin Sodium Potassium 5.3 H D Chloride Carbon Dioxide BUN Creatinine Glucose POC Glucose 158 H Lactic Acid Calcium Phosphorus Ferritin Total Bilirubin Direct Bilirubin AST ALT Lactate Dehydrogenase Total Creatine Kinase Troponin T Total Protein Albumin Arterial Blood Glucose Arterial Blood Ionized Calcium Urine pH Urine Creatinine Salicylates Acetaminophen Coronavirus (PCR) Positive A 09/08/20 09/08/20 09/08/20 Unknown Unknown Unknown WBC 18.4 H RBC Hgb 10.1 L Hct 32.0 L MCHC RDW 18.2 H Lymph % (Auto) [place] % (Auto) Lymph # (Auto) [place] # (Auto) Seg Neutrophils % Seg Neuts % (Manual) 81.0 H Lymphocytes % (Manual) 2.0 L Monocytes % (Manual) Nucleated RBC % 1.0 H Seg Neutrophils # Seg Neutrophils # Man 14.9 H Lymphocytes # (Manual) 0.4 L Monocytes # (Manual) 1.1 H PT 21.2 H INR 1.83 H D-Dimer ABG pH POC ABG pCO2 POC ABG pO2 ABG pO2 ABG HCO3 ABG Base Excess ABG Hemoglobin ABG Oxyhemoglobin ABG Sodium ABG Potassium ABG Chloride ABG Glucose Carboxyhemoglobin Sodium Potassium Chloride Carbon Dioxide BUN Creatinine Glucose POC Glucose Lactic Acid Calcium Phosphorus Ferritin Total Bilirubin Direct Bilirubin AST ALT Lactate Dehydrogenase Total Creatine Kinase Troponin T Total Protein Albumin Arterial Blood Glucose Arterial Blood Ionized Calcium Urine pH Urine Creatinine 182.4 H Salicylates Acetaminophen Coronavirus (PCR) 09/09/20 09/09/20 09/09/20 03:14 04:20 04:20 WBC 16.3 H RBC 3.12 L Hgb 8.6 L Hct 26.8 L MCHC RDW 18.2 H Lymph % (Auto) 6.3 L [place] % (Auto) 8.8 H Lymph # (Auto) 1.0 L [place] # (Auto) 1.4 H Seg Neutrophils % 84.5 H Seg Neuts % (Manual) Lymphocytes % (Manual) Monocytes % (Manual) Nucleated RBC % Seg Neutrophils # 13.7 H Seg Neutrophils # Man Lymphocytes # (Manual) Monocytes # (Manual) PT INR D-Dimer ABG pH POC ABG pCO2 POC ABG pO2 148.5 H ABG pO2 ABG HCO3 ABG Base Excess ABG Hemoglobin 9.4 L ABG Oxyhemoglobin 98.8 H ABG Sodium 134.8 L ABG Potassium 5.0 H ABG Chloride ABG Glucose 222 H Carboxyhemoglobin 0.1 L Sodium Potassium 5.2 H Chloride Carbon Dioxide BUN 47 H Creatinine 4.3 H Glucose 211 H POC Glucose Lactic Acid Calcium 7.4 L Phosphorus Ferritin Total Bilirubin Direct Bilirubin AST 16277 H ALT 6206 H Lactate Dehydrogenase Total Creatine Kinase Troponin T Total Protein 5.6 L Albumin 3.0 L Arterial Blood Glucose 222 H Arterial Blood Ionized Calcium 3.8 L Urine pH Urine Creatinine Salicylates Acetaminophen Coronavirus (PCR) 09/09/20 09/09/20 09/09/20 10:00 12:23 18:22 WBC RBC Hgb Hct MCHC RDW Lymph % (Auto) [place] % (Auto) Lymph # (Auto) [place] # (Auto) Seg Neutrophils % Seg Neuts % (Manual) Lymphocytes % (Manual) Monocytes % (Manual) Nucleated RBC % Seg Neutrophils # Seg Neutrophils # Man Lymphocytes # (Manual) Monocytes # (Manual) PT 21.7 H INR 1.90 H D-Dimer ABG pH POC ABG pCO2 POC ABG pO2 ABG pO2 ABG HCO3 ABG Base Excess ABG Hemoglobin ABG Oxyhemoglobin ABG Sodium ABG Potassium ABG Chloride ABG Glucose Carboxyhemoglobin Sodium Potassium Chloride Carbon Dioxide BUN Creatinine Glucose POC Glucose 216 H 211 H Lactic Acid Calcium Phosphorus Ferritin Total Bilirubin Direct Bilirubin AST ALT Lactate Dehydrogenase Total Creatine Kinase Troponin T Total Protein Albumin Arterial Blood Glucose Arterial Blood Ionized Calcium Urine pH Urine Creatinine Salicylates Acetaminophen Coronavirus (PCR) 09/10/20 09/10/20 09/10/20 04:00 04:05 04:05 WBC 15.0 H RBC 3.06 L Hgb 8.6 L Hct 25.8 L MCHC RDW 18.0 H Lymph % (Auto) [place] % (Auto) Lymph # (Auto) [place] # (Auto) Seg Neutrophils % Seg Neuts % (Manual) 86.0 H Lymphocytes % (Manual) 6.0 L Monocytes % (Manual) 8.0 H Nucleated RBC % Seg Neutrophils # Seg Neutrophils # Man 12.9 H Lymphocytes # (Manual) 0.9 L Monocytes # (Manual) 1.2 H PT 18.4 H INR 1.54 H D-Dimer ABG pH POC ABG pCO2 POC ABG pO2 ABG pO2 ABG HCO3 ABG Base Excess ABG Hemoglobin ABG Oxyhemoglobin ABG Sodium ABG Potassium ABG Chloride ABG Glucose Carboxyhemoglobin Sodium 134 L Potassium Chloride 93.7 L Carbon Dioxide BUN 46 H Creatinine 3.6 H Glucose 275 H POC Glucose Lactic Acid Calcium 7.7 L Phosphorus Ferritin Total Bilirubin 1.30 H Direct Bilirubin AST 5899 H ALT 6440 H Lactate Dehydrogenase Total Creatine Kinase Troponin T Total Protein 5.9 L Albumin 3.3 L Arterial Blood Glucose Arterial Blood Ionized Calcium Urine pH Urine Creatinine Salicylates Acetaminophen Coronavirus (PCR) 09/10/20 09/10/20 09/10/20 04:35 12:06 17:42 WBC RBC Hgb Hct MCHC RDW Lymph % (Auto) [place] % (Auto) Lymph # (Auto) [place] # (Auto) Seg Neutrophils % Seg Neuts % (Manual) Lymphocytes % (Manual) Monocytes % (Manual) Nucleated RBC % Seg Neutrophils # Seg Neutrophils # Man Lymphocytes # (Manual) Monocytes # (Manual) PT INR D-Dimer ABG pH 7.464 H POC ABG pCO2 POC ABG pO2 ABG pO2 ABG HCO3 ABG Base Excess ABG Hemoglobin 9.9 L ABG Oxyhemoglobin ABG Sodium 131.6 L ABG Potassium ABG Chloride 97.0 L ABG Glucose 281 H Carboxyhemoglobin 0.1 L Sodium Potassium Chloride Carbon Dioxide BUN Creatinine Glucose POC Glucose 298 H 340 H Lactic Acid Calcium Phosphorus Ferritin Total Bilirubin Direct Bilirubin AST ALT Lactate Dehydrogenase Total Creatine Kinase Troponin T Total Protein Albumin Arterial Blood Glucose 281 H Arterial Blood Ionized Calcium 3.9 L Urine pH Urine Creatinine Salicylates Acetaminophen Coronavirus (PCR) 09/10/20 09/11/20 09/11/20 23:07 04:44 05:40 WBC RBC Hgb Hct MCHC RDW Lymph % (Auto) [place] % (Auto) Lymph # (Auto) [place] # (Auto) Seg Neutrophils % Seg Neuts % (Manual) Lymphocytes % (Manual) Monocytes % (Manual) Nucleated RBC % Seg Neutrophils # Seg Neutrophils # Man Lymphocytes # (Manual) Monocytes # (Manual) PT 16.9 H INR 1.39 H D-Dimer ABG pH 7.543 H POC ABG pCO2 POC ABG pO2 ABG pO2 112.1 H ABG HCO3 28.1 H ABG Base Excess 5.4 H ABG Hemoglobin 8.4 L ABG Oxyhemoglobin ABG Sodium ABG Potassium ABG Chloride ABG Glucose Carboxyhemoglobin Sodium Potassium Chloride Carbon Dioxide BUN Creatinine Glucose POC Glucose 367 H Lactic Acid Calcium Phosphorus Ferritin Total Bilirubin Direct Bilirubin AST ALT Lactate Dehydrogenase Total Creatine Kinase Troponin T Total Protein Albumin Arterial Blood Glucose Arterial Blood Ionized Calcium Urine pH Urine Creatinine Salicylates Acetaminophen Coronavirus (PCR)
[2020-09-11] MEDS: dexAMETHasone 4 MG/ML VIAL IV SCH (09:54)
[2020-09-11] MEDS: MULTIVITAMINS 5 ML ORAL LIQUID PO SCH (09:54)
[2020-09-11] MEDS: INSULIN LISPRO 100 UNIT/ML SUB-Q SCH ×3 (09:55→18:04)
[2020-09-11] MEDS ORDERED: INSULIN GLARGINE 100 UNITS/ML SUB-Q SCH (10:00)
[2020-09-11] MEDS: levETIRAcetam 1,500 MG in DEXTROSE 5% IN WATER 100 ML IV SCH ×2 (11:10→21:30)
--- NOTE | 2020-09-11 11:19 | Progress Note ---
Assessment and Plan Cultures: Blood culture 09/07/2020 no growth SARS CoV2 PCR positive 09/07/2020 urine culture: No growth HIV, hepatitis panel: Negative Assessment: 65 years old male with unknown medical history, morbidly obese, brought to the ED by EMS on 09/07/2020 secondary to passing out, found in out of hospital cardiac arrest status post resuscitation, intubated in the field: #[id number] cardiac arrest/shock #Bilateral pneumonia secondary to COVID-19 infection. Inflammatory markers elevated. D-dimer was 8315. apparently, patient was recently hospitalized at the [facility] for COVID-19 prior to admission here. Not a candidate for remdesivir due to hepatic and renal failure #Acute hypoxic respiratory failure: on the vent. #Acute renal failure: Creatinine elevated. Likely secondary to cardiac arrest/COVID-19 infection #Shock liver, transaminitis: Viral hepatitis panel negative. #Acute Encephalopathy: Initial GCS 3, noted myoclonic jerking.? Anoxic brain injury. CT of the head unremarkable. Recs: -complete course of empiric azithromycin, ceftriaxone. Although fevers are probably due to seizures. Cultures are negative thus far -Guarded prognosis Marisol Stock MD, FACP [facility] ([facility] O: [phone] F: [phone] Subjective Date of service: 09/11/20 Principal diagnosis: Abnormal LFTs Interval history: Having fevers. Also having seizures. Remains on the vent. Objective - Exam Narrative Exam: Physical Exam (reviewed in chart to minimize risk of transmission) Constitutional: deferred Head, Ears, Nose: deferred Eyes: deferred Neck: deferred Oral: deferred Cardiovascular: deferred Respiratory: deferred GI: deferred Musculoskeletal: deferred Skin: deferred Hem/Lymphatic: deferred Psych: deferred Neurological: deferred - Constitutional Vitals: Vital Signs Temp Pulse Resp BP Pulse Ox 98.9 F 61 30 H 123/48 98 09/11/20 08:00 09/11/20 08:41 09/11/20 08:41 09/11/20 08:41 09/11/20 08:41 Temperature -Last 24 Hours Temperature 98.9 F Temperature 99.8 F Temperature 101.2 F Temperature 101.9 F Temperature 101.9 F Temperature 99.0 F Temperature 99.1 F - Labs CBC & Chem 7: 01/31/21 04:05 09/10/20 04:00 Labs: Abnormal lab results 09/10/20 09/10/20 09/10/20 Range/Units 12:06 17:42 23:07 PT (12.2-14.9) Sec. INR (0.87-1.13) ABG pH (7.350-7.450) pH Units ABG pO2 (80.0-90.0) mm Hg ABG HCO3 (20.0-26.0) mmol/L ABG Base Excess (-2.0-3.0) mmol/L ABG Hemoglobin (14.0-18.0) gm/dl POC Glucose 298 H 340 H 367 H (70-105) mg/dL 09/11/20 09/11/20 Range/Units 04:44 05:40 PT 16.9 H (12.2-14.9) Sec. INR 1.39 H (0.87-1.13) ABG pH 7.543 H (7.350-7.450) pH Units ABG pO2 112.1 H (80.0-90.0) mm Hg ABG HCO3 28.1 H (20.0-26.0) mmol/L ABG Base Excess 5.4 H (-2.0-3.0) mmol/L ABG Hemoglobin 8.4 L (14.0-18.0) gm/dl POC Glucose (70-105) mg/dL
--- NOTE | 2020-09-11 11:27 | Gastroenterology Progress Note ---
Assessment and Plan - Patient Problems (1) COVID-19 Current Visit: Yes Status: Acute (2) Transaminitis Current Visit: Yes Status: Acute Plan to address problem: - Serologies negative, and likely acute ischemic injury; he is COVID positive, and unclear if he was taking excess tylenol at home, but outside the window for Acetadote at present. - Will get RUQ US (pending), but improvement in INR indicates past crisis point. - OK to continue OG feeds, as nutrition may aid in liver recovery; will add MVI as well. - Will d/c tylenol PRN order; if needed for fevers, low-dose ibuprofen is acceptable. - With active COVID, not a candidate for liver transplant evaluation even if severe decompensation, eliezer with severe pulmonary compromise, as well as unclear mental status/possible seizures. - Will sign off for now; please call if needed. Subjective Date of service: 09/11/20 Principal diagnosis: Abnormal LFTs Interval history: The patient remains stable on the ventilator; no acute decompensation overnight. Objective - Constitutional Vitals: Temp Pulse Resp BP Pulse Ox 98.9 F 61 30 H 123/48 98 09/11/20 08:00 09/11/20 08:41 09/11/20 08:41 09/11/20 08:41 09/11/20 08:41 General appearance: no acute distress - Respiratory Respiratory effort: normal Respiratory: bilateral: CTA (Vent) - Cardiovascular Rhythm: regular Heart Sounds: Present: S1 & S2 - Gastrointestinal General gastrointestinal: Present: soft, non-tender, non-distended - Labs CBC & Chem 7: 09/10/20 04:05 09/10/20 04:00 Labs: Laboratory Results - last 24 hr 09/10/20 09/10/20 09/10/20 12:06 17:42 23:07 PT INR ABG pH ABG pCO2 ABG pO2 ABG HCO3 ABG O2 Saturation ABG O2 Content ABG Base Excess ABG Hemoglobin ABG Carboxyhemoglobin ABG Methemoglobin Oxyhemoglobin FiO2 POC Glucose 298 H 340 H 367 H 09/11/20 09/11/20 09/11/20 04:44 05:17 05:40 PT 16.9 H INR 1.39 H ABG pH 7.543 H ABG pCO2 33.4 ABG pO2 112.1 H ABG HCO3 28.1 H ABG O2 Saturation 98.4 ABG O2 Content 11.6 ABG Base Excess 5.4 H ABG Hemoglobin 8.4 L ABG Carboxyhemoglobin 1.2 ABG Methemoglobin 0.4 Oxyhemoglobin 96.8 FiO2 50 POC Glucose 416 H
[2020-09-11] MEDS: LANSOPRAZOLE 30 MG SOLUTAB FEEDTUBE SCH ×2 (11:55→21:29)
--- NOTE | 2020-09-11 14:41 | Cat Scan Report ---
CT head/brain wo con INDICATION: Continued seizures, altered mental state. TECHNIQUE: Routine CT head without contrast. All CT scans at this location are performed using CT dos e reduction for ALARA by means of automated exposure control. COMPARISON: [id number] FINDINGS: BRAIN / INTRACRANIAL CONTENTS: There is global loss of marte-white differentiation with decreased sulc ation suggesting cerebral edema. There is no hydrocephalus or adverse mass effect. There is no hemorr irina. ORBITS: No significant abnormality of visualized orbits. SINUSES / MASTOIDS: Mild mucosal thickening in the paranasal sinuses likely due to intubation. ADDITIONAL FINDINGS: None. IMPRESSION: 1. Findings suggesting diffuse cerebral edema without hemorrhage or adverse mass effect. Signer Name: Federico Valderrama MD Signed: 09/11/2020 2:37 PM Workstation Name: [id number]
[2020-09-11] MEDS: cefTRIAXone/NS 2 GM/100 ML 2 GM/100 ML BAG IV SCH (17:00)
[2020-09-11] MEDS: AZITHROMYCIN/NS 500 MG/250 ML 500 MG/250 ML BAG IV SCH (17:55)
--- NOTE | 2020-09-11 19:11 | Progress Note ---
Assessment and Plan Impression: * Nonoliguric RYAN secondary to ATN * Severe hyperkalemia - resolved * COVID 19 PNA * s/p OOH cardiac arrest * Acute hypoxic respiratory failure * Seizure activity * Anemia Plan: * Patient is s/p emergent HD on Friday (hyperK) and Friday * Large urine output noted * Labs ordered today, not yet collected * Please check labs daily * Strict I/O * No acute indication for hemodialysis at this time - UOP good * Will reassess need for hemodialysis tomorrrow * Vent management per CCM * Steroids per primary team/ID * Dose medications for renal function * Avoid potential nephrotoxins * Prognosis is guarded Subjective Date of service: 09/11/20 Principal diagnosis: Abnormal LFTs Interval history: Remains intubated Patient was seen for his renal issues Nursing, interdisciplinary and consult notes were reviewed Vitals, input and output, medications and labs were reviewed Objective - Exam Narrative Exam: Deferred for PPE conservation and to prevent spread of infection - Vital Signs Vital signs: Vital Signs - 12hr 09/11/20 09/11/20 09/11/20 07:11 07:21 07:30 Temperature Pulse Rate 63 61 60 Respiratory 30 H 30 H 30 H Rate Blood Pressure 117/47 130/55 130/55 O2 Sat by Pulse 98 98 98 Oximetry 09/11/20 09/11/20 09/11/20 07:41 07:51 08:00 Temperature 98.9 F Pulse Rate 59 L 63 63 Respiratory 30 H 30 H Rate Blood Pressure 128/49 128/49 O2 Sat by Pulse 98 98 Oximetry 09/11/20 09/11/20 09/11/20 08:01 08:02 08:11 Temperature Pulse Rate 63 58 L 61 Respiratory 30 H 30 H Rate Blood Pressure 133/50 133/50 133/50 O2 Sat by Pulse 97 98 98 Oximetry 09/11/20 09/11/20 09/11/20 08:21 08:31 08:41 Temperature Pulse Rate 59 L 58 L 61 Respiratory 30 H 30 H 30 H Rate Blood Pressure 122/45 123/48 123/48 O2 Sat by Pulse 98 98 98 Oximetry 09/11/20 09/11/20 09/11/20 08:51 09:01 09:11 Temperature Pulse Rate 57 L 63 60 Respiratory 30 H 30 H 30 H Rate Blood Pressure 123/52 132/47 132/47 O2 Sat by Pulse 98 97 98 Oximetry 09/11/20 09/11/20 09/11/20 09:21 09:31 09:41 Temperature Pulse Rate 57 L 59 L 75 Respiratory 30 H 27 H 22 Rate Blood Pressure 127/48 109/43 109/43 O2 Sat by Pulse 97 95 98 Oximetry 09/11/20 09/11/20 09/11/20 09:51 10:01 10:11 Temperature Pulse Rate 64 60 59 L Respiratory 30 H 30 H 30 H Rate Blood Pressure 102/57 101/50 101/50 O2 Sat by Pulse 99 98 98 Oximetry 09/11/20 09/11/20 09/11/20 10:21 10:31 10:41 Temperature Pulse Rate 58 L 58 L 59 L Respiratory 30 H 30 H 30 H Rate Blood Pressure 111/48 123/54 123/54 O2 Sat by Pulse 98 97 98 Oximetry 09/11/20 09/11/20 09/11/20 10:51 11:01 11:11 Temperature Pulse Rate 56 L 58 L 55 L Respiratory 30 H 30 H 30 H Rate Blood Pressure 133/52 131/55 131/55 O2 Sat by Pulse 98 96 97 Oximetry 09/11/20 09/11/20 09/11/20 11:21 11:26 11:31 Temperature Pulse Rate 58 L 56 L 56 L Respiratory 30 H 30 H Rate Blood Pressure 134/53 134/53 135/55 O2 Sat by Pulse 97 97 95 Oximetry 09/11/20 09/11/20 09/11/20 11:41 11:51 12:00 Temperature 98.6 F Pulse Rate 55 L 57 L 56 L Respiratory 30 H 30 H Rate Blood Pressure 135/55 144/57 O2 Sat by Pulse 96 96 Oximetry 09/11/20 09/11/20 09/11/20 12:01 12:11 12:21 Temperature Pulse Rate 55 L 55 L 55 L Respiratory 30 H 30 H 23 Rate Blood Pressure 137/58 137/58 135/59 O2 Sat by Pulse 96 97 97 Oximetry 09/11/20 09/11/20 09/11/20 12:31 12:41 12:51 Temperature Pulse Rate 54 L 54 L 55 L Respiratory 18 20 23 Rate Blood Pressure 135/57 135/57 134/50 O2 Sat by Pulse 96 96 96 Oximetry 09/11/20 09/11/20 09/11/20 13:01 13:11 13:21 Temperature Pulse Rate 54 L 54 L 53 L Respiratory 20 30 H 30 H Rate Blood Pressure 133/57 133/57 131/56 O2 Sat by Pulse 95 96 95 Oximetry 09/11/20 09/11/20 09/11/20 13:31 13:41 13:51 Temperature Pulse Rate 55 L 54 L 54 L Respiratory 23 20 27 H Rate Blood Pressure 133/57 133/57 133/55 O2 Sat by Pulse 95 95 96 Oximetry 09/11/20 09/11/20 09/11/20 14:01 14:41 14:51 Temperature Pulse Rate 54 L 61 57 L Respiratory 30 H 30 H 30 H Rate Blood Pressure 134/57 107/65 O2 Sat by Pulse 96 99 98 Oximetry 09/11/20 09/11/20 09/11/20 15:01 15:11 15:21 Temperature Pulse Rate 57 L 57 L 53 L Respiratory 30 H 30 H 30 H Rate Blood Pressure 134/57 121/50 109/48 O2 Sat by Pulse 98 99 99 Oximetry 09/11/20 09/11/20 09/11/20 15:30 15:41 15:51 Temperature Pulse Rate 54 L 56 L 66 Respiratory 30 H 15 18 Rate Blood Pressure 131/53 131/53 117/48 O2 Sat by Pulse 98 97 99 Oximetry 09/11/20 09/11/20 09/11/20 15:53 16:00 16:01 Temperature 98.9 F Pulse Rate 62 62 62 Respiratory 19 Rate Blood Pressure 117/48 122/48 O2 Sat by Pulse 99 100 98 Oximetry 09/11/20 09/11/20 09/11/20 16:11 16:21 16:31 Temperature Pulse Rate 56 L 60 56 L Respiratory 30 H 30 H 30 H Rate Blood Pressure 122/48 129/51 113/47 O2 Sat by Pulse 100 99 98 Oximetry 09/11/20 09/11/20 09/11/20 16:41 16:51 17:01 Temperature Pulse Rate 57 L 55 L 52 L Respiratory 30 H 30 H 30 H Rate Blood Pressure 129/51 123/46 117/43 O2 Sat by Pulse 99 99 98 Oximetry 09/11/20 09/11/20 09/11/20 17:11 17:21 17:30 Temperature Pulse Rate 54 L 53 L 54 L Respiratory 30 H 30 H 30 H Rate Blood Pressure 113/47 122/49 123/53 O2 Sat by Pulse 98 98 97 Oximetry 09/11/20 09/11/20 09/11/20 17:41 17:51 18:01 Temperature Pulse Rate 57 L 70 52 L Respiratory 30 H 30 H 30 H Rate Blood Pressure 123/53 123/50 128/48 O2 Sat by Pulse 98 98 98 Oximetry - Lab 09/10/20 04:05 09/10/20 04:00 Most recent lab results ABG pH 7.543 pH Units (7.350-7.450) H 09/11/20 05:40 ABG pCO2 33.4 mm Hg 09/11/20 05:40 ABG pO2 112.1 mm Hg (80.0-90.0) H 09/11/20 05:40 ABG HCO3 28.1 mmol/L (20.0-26.0) H 09/11/20 05:40 ABG O2 Saturation 98.4 % (95.0-99.0) 09/11/20 05:40 Calcium 7.7 mg/dL (8.4-10.2) L 09/10/20 04:00 Phosphorus 8.00 mg/dL (2.5-4.5) H 09/08/20 12:02 Magnesium 1.80 mg/dL (1.7-2.3) 09/08/20 12:02 Urine Creatinine 182.4 mg/dL (0.1-20.0) H 09/08/20 Unknown Urine Sodium 40 mmol/L 09/08/20 Unknown Medications & Allergies - Medications Allergies/Adverse Reactions: Allergies Unable to Assess Allergy (Verified 09/07/20 13:43) intubated Home Medications: Home Medications Medication Instructions Recorded Confirmed Last Taken Type Lantus VIAL 54 units SQ HS 09/11/20 09/11/20 Unknown History Active Medications: Generic Name Dose Route Start Last Admin Trade Name Freq PRN Reason Stop Dose Admin Acetaminophen 400 mg 09/10/20 20:50 09/10/20 21:42 Acetaminophen 325 Mg/10.15 Ml Oral Liqd Unit Dose PO 400 mg Q4HR PRN Administration Non Cardiac Pain or Temp>100.5 Lipase/Protease/Amylase 1 each 09/09/20 09:40 Lipase 10,500/Protease 25,000/Amylase 43,750 (Units) Dr Armenta FEEDTUBE PRN PRN For Clogged Feeding Tube Fentanyl 50 mcg 09/07/20 13:08 09/07/20 19:26 Fentanyl 100 Mcg/2 Ml Inj IV 50 mcg Q10MIN PRN Administration ANALGESIA Hydrophilic Ointment 1 applic 09/07/20 13:08 Lip Therapy Vaseline TP Q2HR PRN Dry Lips Ceftriaxone Sodium 2 gm in 100 mls @ 200 mls/hr 09/08/20 16:00 09/11/20 17:00 Rocephin/Ns 2 Gm/100 Ml IV 09/12/20 16:29 200 mls/hr Q24H TAYLOR Administration Protocol Azithromycin 500 mg in 250 mls @ 250 mls/hr 09/08/20 18:00 09/11/20 17:55 Zithromax/Ns IV 09/12/20 18:59 250 mls/hr Q24H TAYLOR Administration Protocol Norepinephrine 4 mg in 250 mls @ 7.5 mls/hr 09/08/20 01:30 09/08/20 12:00 Levophed Drip 4 Mg/Ns 250 Ml IV 0 mcg/min TITR TAYLOR 0 mls/hr Titration Protocol 2 MCG/MIN Lorazepam 100 mg/ Sodium 100 mls @ 1 mls/hr 09/08/20 04:00 09/11/20 01:17 Chloride/ Miscellaneous IV 3 mg/hr Information TITR TAYLOR 3 mls/hr Titration Protocol 1 MG/HR Vasopressin 20 unit/ Sodium 101 mls @ 9.09 mls/hr 09/08/20 06:00 09/08/20 08:43 Chloride IV 0 units/min TITR TAYLOR 0 mls/hr Titration Protocol 0.03 UNITS/MIN Propofol 1,000 mg in 100 mls @ 4.995 mls/hr 09/08/20 20:00 09/11/20 16:05 Diprivan 10 Mg/Ml IV 30 mcg/kg/min TITR TAYLOR 29.97 mls/hr Administration Protocol 5 MCG/KG/MIN Sodium Chloride 100 mls @ 999 mls/hr 09/09/20 13:36 Nacl 0.9% IV JAYJAY PRN Hypotension Levetiracetam 1,500 mg/ 115 mls @ 400 mls/hr 09/11/20 10:00 09/11/20 11:10 Dextrose IV 400 mls/hr BID TAYLOR Administration Insulin Glargine 10 units 09/11/20 10:00 09/11/20 10:30 Insulin Glargine 100 Units/Ml SUB-Q 10 units DAILY TAYLOR Administration Insulin Human Lispro 0 unit 09/11/20 06:00 09/11/20 18:04 Insulin Lispro 100 Unit/Ml SUB-Q 10 unit Q6HR TAYLOR Administration Protocol Lansoprazole 30 mg 09/11/20 11:00 09/11/20 11:55 Lansoprazole 30 Mg Solutab FEEDTUBE 30 mg BID TAYLOR Administration Lorazepam 2 mg 09/08/20 00:14 09/10/20 16:04 Lorazepam 2 Mg/Ml Vial IV 2 mg Q4H PRN Administration Seizures Lorazepam 2 mg 09/08/20 03:55 09/11/20 04:13 Lorazepam 2 Mg/Ml Vial IV 2 mg Q10MIN PRN Administration Agitation Multi-Ingred Cream/Lotion/Oil/Oint 1 applic 09/07/20 13:08 Mineral Oil/Petrolatum, White Ophth Oint 3.5 Gm OU Q4HR PRN Dry Eye(s) Multivitamins 5 ml 09/09/20 12:00 09/11/20 09:54 Multivitamins 5 Ml Oral Liquid PO 5 ml QDAY TAYLOR Administration Ondansetron HCl 4 mg 09/07/20 17:55 Ondansetron 4 Mg/2 Ml Inj IV Q8H PRN Nausea And Vomiting Simple Syrup 15 ml 09/09/20 09:40 Simple Syrup 15 Ml FEEDTUBE PRN PRN Hypoglycemia Simple Syrup 30 ml 09/09/20 09:40 Simple Syrup 15 Ml FEEDTUBE PRN PRN Hypoglycemia Sodium Bicarbonate 325 mg 09/09/20 09:40 Sodium Bicarbonate 325 Mg Tab FEEDTUBE PRN PRN For Clogged Feeding Tube Sodium Chloride 10 ml 09/07/20 22:00 09/11/20 09:55 Sodium Chloride 0.9% 10 Ml Flush Syringe IV 10 ml BID TAYLOR Administration Sodium Chloride 10 ml 09/07/20 17:55 Sodium Chloride 0.9% 10 Ml Flush Syringe IV PRN PRN LINE FLUSH
--- NOTE | 2020-09-11 22:39 | Progress Note ---
Assessment and Plan Critical care statement The high probability OF a clinically significant sudden or life-threatening deterioration of the cardiorespiratory system and endocrine system required my full and direct attention, intervention and postoperative management. The aggregate critical care time was 35 minutes. The time is in addition to time spent performing reported procedures but includes the followin: Data review and interpretation 2: Patient assessment and monitoring of vital signs 3: Documentation 4:: Medication orders and management Assessment and Plan - Patient Problems --Cardiac arrest Current Visit: Yes Status: Acute Plan to address problem: Patient currently intubated and sedated. Admitted into the intensive care unit. Utility Assembler has been consulted for evaluation. Acute kidney injury Secondary to ATN-patient getting emergent hemodialysis because of the creatinine and high potassium Hemodialysis as per nephrology Seizure disorder EEG requested Keppra increased to 1500 mg twice daily --Respiratory acidosis Current Visit: Yes Status: Acute Plan to address problem: Secondary to the underlying pneumonia. Will monitor ABG. Patient intubated and weaning in progress --Hyperkalemia Treat High K Emergent HD per Nephrology Hyperkalemia resolved --Coronavirus infection Current Visit: Yes Status: Acute Plan to address problem: Patient placed on isolation precautions. He has been started on empiric IV antibiotics. Patient on IV Decadron No remdesivir because of the kidney injury and the liver injury --Transaminitis Current Visit: Yes Status: Acute Plan to address problem: Possibly secondary to ischemic liver injury Also possible the Covid infection is caused the transaminitis No Tylenol as needed Low-dose ibuprofen if necessary for temperature more than 100 Today CMP is pending. --Morbid obesity Current Visit: Yes Status: Acute Plan to address problem: Patient has poor prognosis --DVT prophylaxis Current Visit: Yes Status: Acute Plan to address problem: Patient placed on subcutaneous Lovenox. --Full code status Current Visit: Yes Status: Acute Plan to address problem: Patient is a full code. We will attempt to get further information from family. Critical care time spent is 35 minutes Subjective Date of service: 09/11/20 Principal diagnosis: Abnormal LFTs, s/p cardiac arrest, acute kidney injury with ATN Interval history: 65-year-old male brought into the emergency room today by EMS for ca rdiopulmonary arrest. Patient was said to be awaiting a Covid test when he was said to have passed out. CPR was started and also patient was defibrillated once. CPR was continued on the field by EMS and patient had a spontaneous return of circulation. Upon arrival in the emergency room patient had been receiving bag valve mask ventilation through a Dayron airway. He was tachycardic and was subsequently intubated in the emergency room. Most of the history was obtained from the ER staff as patient is already intubated. Work-up in the emergency room today chest x-ray reveals:Bilateral airspace disease which could be related to alveolar edema or infection. CT scan of the head was unremarkable. Patient could not had a CT angiogram because of his size. Patient is being admitted for cardiopulmonary arrest and also possible Covid pneumonia. Day #2 Patient intubated Patient has high transaminitis status. S/p cardiac arrest ACLS and return of spontaneous circulation Hypoxic brain injury in the differential Covid pneumonia Day #3 Patient intubated Unresponsive S/p cardiac arrest Transaminitis-severe Covid pneumonia Day #4 Patient having seizures Patient is intubated Severe transaminitis Covid pneumonia Possible hypoxic brain injury ATN Day #5-09/11/2020 Patient intubated Seizure activity is better EEG requested Weaning in progress Objective - Exam Narrative Exam: Patient is intubated - Constitutional Vitals: Vital Signs - 12hr 09/11/20 09/11/20 09/11/20 10:41 10:51 11:01 Temperature Pulse Rate 59 L 56 L 58 L Pulse Rate [ From Monitor] Respiratory 30 H 30 H 30 H Rate Blood Pressure 123/54 133/52 131/55 O2 Sat by Pulse 98 98 96 Oximetry 09/11/20 09/11/20 09/11/20 11:11 11:21 11:26 Temperature Pulse Rate 55 L 58 L 56 L Pulse Rate [ From Monitor] Respiratory 30 H 30 H Rate Blood Pressure 131/55 134/53 134/53 O2 Sat by Pulse 97 97 97 Oximetry 09/11/20 09/11/20 09/11/20 11:31 11:41 11:51 Temperature Pulse Rate 56 L 55 L 57 L Pulse Rate [ From Monitor] Respiratory 30 H 30 H 30 H Rate Blood Pressure 135/55 135/55 144/57 O2 Sat by Pulse 95 96 96 Oximetry 09/11/20 09/11/20 09/11/20 12:00 12:01 12:11 Temperature 98.6 F Pulse Rate 56 L 55 L 55 L Pulse Rate [ From Monitor] Respiratory 30 H 30 H Rate Blood Pressure 137/58 137/58 O2 Sat by Pulse 96 97 Oximetry 09/11/20 09/11/20 09/11/20 12:21 12:31 12:41 Temperature Pulse Rate 55 L 54 L 54 L Pulse Rate [ From Monitor] Respiratory 23 18 20 Rate Blood Pressure 135/59 135/57 135/57 O2 Sat by Pulse 97 96 96 Oximetry 09/11/20 09/11/20 09/11/20 12:51 13:01 13:11 Temperature Pulse Rate 55 L 54 L 54 L Pulse Rate [ From Monitor] Respiratory 23 20 30 H Rate Blood Pressure 134/50 133/57 133/57 O2 Sat by Pulse 96 95 96 Oximetry 09/11/20 09/11/20 09/11/20 13:21 13:31 13:41 Temperature Pulse Rate 53 L 55 L 54 L Pulse Rate [ From Monitor] Respiratory 30 H 23 20 Rate Blood Pressure 131/56 133/57 133/57 O2 Sat by Pulse 95 95 95 Oximetry 09/11/20 09/11/20 09/11/20 13:51 14:01 14:41 Temperature Pulse Rate 54 L 54 L 61 Pulse Rate [ From Monitor] Respiratory 27 H 30 H 30 H Rate Blood Pressure 133/55 134/57 O2 Sat by Pulse 96 96 99 Oximetry 09/11/20 09/11/20 09/11/20 14:51 15:01 15:11 Temperature Pulse Rate 57 L 57 L 57 L Pulse Rate [ From Monitor] Respiratory 30 H 30 H 30 H Rate Blood Pressure 107/65 134/57 121/50 O2 Sat by Pulse 98 98 99 Oximetry 09/11/20 09/11/20 09/11/20 15:21 15:30 15:41 Temperature Pulse Rate 53 L 54 L 56 L Pulse Rate [ From Monitor] Respiratory 30 H 30 H 15 Rate Blood Pressure 109/48 131/53 131/53 O2 Sat by Pulse 99 98 97 Oximetry 09/11/20 09/11/20 09/11/20 15:51 15:53 16:00 Temperature 98.9 F Pulse Rate 66 62 62 Pulse Rate [ From Monitor] Respiratory 18 Rate Blood Pressure 117/48 117/48 O2 Sat by Pulse 99 99 100 Oximetry 09/11/20 09/11/20 09/11/20 16:01 16:11 16:21 Temperature Pulse Rate 62 56 L 60 Pulse Rate [ From Monitor] Respiratory 19 30 H 30 H Rate Blood Pressure 122/48 122/48 129/51 O2 Sat by Pulse 98 100 99 Oximetry 09/11/20 09/11/20 09/11/20 16:31 16:41 16:51 Temperature Pulse Rate 56 L 57 L 55 L Pulse Rate [ From Monitor] Respiratory 30 H 30 H 30 H Rate Blood Pressure 113/47 129/51 123/46 O2 Sat by Pulse 98 99 99 Oximetry 09/11/20 09/11/20 09/11/20 17:01 17:11 17:21 Temperature Pulse Rate 52 L 54 L 53 L Pulse Rate [ From Monitor] Respiratory 30 H 30 H 30 H Rate Blood Pressure 117/43 113/47 122/49 O2 Sat by Pulse 98 98 98 Oximetry 09/11/20 09/11/20 09/11/20 17:30 17:41 17:51 Temperature Pulse Rate 54 L 57 L 70 Pulse Rate [ From Monitor] Respiratory 30 H 30 H 30 H Rate Blood Pressure 123/53 123/53 123/50 O2 Sat by Pulse 97 98 98 Oximetry 09/11/20 09/11/20 09/11/20 18:01 19:00 19:11 Temperature Pulse Rate 52 L 52 L 50 L Pulse Rate [ From Monitor] Respiratory 30 H 30 H 26 H Rate Blood Pressure 128/48 125/52 125/52 O2 Sat by Pulse 98 98 98 Oximetry 09/11/20 09/11/20 09/11/20 19:21 19:31 19:41 Temperature Pulse Rate 54 L 52 L 52 L Pulse Rate [ From Monitor] Respiratory 30 H 30 H 30 H Rate Blood Pressure 120/47 123/50 123/50 O2 Sat by Pulse 98 98 98 Oximetry 09/11/20 09/11/20 09/11/20 19:51 19:55 20:00 Temperature 97.7 F Pulse Rate 54 L 55 L 54 L Pulse Rate [ 51 L From Monitor] Respiratory 30 H 30 H Rate Blood Pressure 119/46 119/46 O2 Sat by Pulse 98 98 100 Oximetry 09/11/20 09/11/20 20:01 20:11 Temperature Pulse Rate 53 L 51 L Pulse Rate [ From Monitor] Respiratory 30 H 30 H Rate Blood Pressure 118/48 118/48 O2 Sat by Pulse 99 99 Oximetry General appearance: Present: mild distress, well-nourished - EENT Eyes: PERRL, EOM intact ENT: hearing intact, clear oral mucosa Ears: bilateral: normal - Neck Neck: supple, normal ROM - Respiratory Respiratory effort: normal Respiratory: bilateral: CTA - Breasts Breasts: normal - Cardiovascular Heart rate: 98 Rhythm: regular Heart Sounds: Present: S1 & S2. Absent: gallop, rub Extremities: pulses intact, No edema, normal color, Full ROM - Gastrointestinal General gastrointestinal: Present: soft, non-tender, non-distended, normal bowel sounds - Genitourinary Male genitourinary: normal - Integumentary Integumentary: clear, warm, dry - Musculoskeletal Musculoskeletal: strength equal bilaterally, generalized weakness - Neurologic Neurologic: moves all extremities - Psychiatric Psychiatric: memory intact, appropriate mood/affect, intact judgment & insight - Allied health notes Allied health notes reviewed: nursing, case management - Labs CBC & Chem 7: 09/10/20 04:05 09/10/20 04:00 Labs: Abnormal lab results 09/10/20 09/11/20 09/11/20 Range/Units 23:07 04:44 05:17 PT 16.9 H (12.2-14.9) Sec. INR 1.39 H (0.87-1.13) ABG pH (7.350-7.450) pH Units ABG pO2 (80.0-90.0) mm Hg ABG HCO3 (20.0-26.0) mmol/L ABG Base Excess (-2.0-3.0) mmol/L ABG Hemoglobin (14.0-18.0) gm/dl POC Glucose 367 H 416 H (70-105) mg/dL 09/11/20 09/11/20 09/11/20 Range/Units 05:40 12:01 17:50 PT (12.2-14.9) Sec. INR (0.87-1.13) ABG pH 7.543 H (7.350-7.450) pH Units ABG pO2 112.1 H (80.0-90.0) mm Hg ABG HCO3 28.1 H (20.0-26.0) mmol/L ABG Base Excess 5.4 H (-2.0-3.0) mmol/L ABG Hemoglobin 8.4 L (14.0-18.0) gm/dl POC Glucose 418 H 404 H (70-105) mg/dL HEART Score - HEART Score Troponin: Troponin T 0.076 ng/mL (0.00-0.029) H 09/07/20 14:00
[2020-09-11 23:39] LABS: Albumin 3.1 g/dL (3.9-5); Calcium 8.4 mg/dL (8.4-10.2)
[2020-09-12] MEDS ORDERED: INSULIN LISPRO 100 UNIT/ML SUB-Q ONE (00:44)
[2020-09-12] MEDS: INSULIN LISPRO 100 UNIT/ML SUB-Q SCH ×6 (00:58→18:08)
[2020-09-12] MEDS: LORazepam 100 MG in SODIUM CHLORIDE 0.9% 50 ML, EMPTY BAG 0 ML IV SCH (00:59)
[2020-09-12] MEDS ORDERED: INSULIN LISPRO 100 UNIT/ML SUB-Q SCH (02:00)
--- NOTE | 2020-09-12 03:09 | XRay Report ---
CHEST 1 VIEW 2:26 AM INDICATION / CLINICAL INFORMATION: Follow-up respiratory failure. COMPARISON: Yesterday. FINDINGS: SUPPORT DEVICES: The positions of the endotracheal and nasogastric tubes have not changed. HEART / MEDIASTINUM: Unchanged. LUNGS / PLEURA: Pleuroparenchymal opacity in the right mid to lower hemithorax may be slightly improv ed. Mild left retrocardiac opacity is stable. No pneumothorax. ADDITIONAL FINDINGS: No significant additional findings. IMPRESSION: Improving pleuroparenchymal disease in the right lower hemithorax. Signer Name: Florentin Iqbal MD Signed: 09/12/2020 3:04 AM Workstation Name: [id number]
[2020-09-12 05:20] LABS: Hematocrit 27.6 % (35.5-45.6); Hemoglobin 9.3 gm/dl (11.8-15.2); Mean Corpuscular HGB Conc 34 % (32-34); Mean Corpuscular Volume 84 fl (84-94); Platelet Count 180 K/mm3 (140-440); Red Cell Distribution Width 17.5 % (13.2-15.2)
[2020-09-12 05:31] LABS: INR 1.31 (0.87-1.13)
[2020-09-12 05:37] LABS: Calcium 8.7 mg/dL (8.4-10.2)
[2020-09-12 06:26] LABS: Total Cells Counted 100
[2020-09-12 06:27] LABS: Anisocytosis Few; Hypochromasia Few
[2020-09-12 06:28] LABS: Platelet Estimate Consistent w Auto; Schistocytes Few; Tear Drop Cells Few
--- NOTE | 2020-09-12 09:37 | Progress Note ---
Assessment and Plan 65 y/o male with out of hospital cardiac arrest now sedated on ativan for possible seizures. 09/12/20: Long discussion with this am. Given recent head CT results, prognosis for full functional recovery is very POOR and neurology agrees. They will see in consult today. I have spoken to about AND and she is going to discuss with the family. The neurologist has stated they will reach out to the today. I am going to attempt to wean the ativan off and then start to wean the diprovan as long as no seizure activity is seen. Patient is now bradycardic, likely secondary to neuro state. I hope that he is not about to he rniate. Patient is also like in Neurogenic DI given large urine out put volume. Very very poor prognosis. Continue supportive measures. 09/11/20: Will increase Keppra to 1500 BID given patient size. Continue Diprovan drip. Getting EEG today. HD per renal. Needs neurology consult however if patient is in status, needs to be transferred to an institution that can provide continuous EEG monitoring. Overll prognosis is very guarded to poor. Have not spoken to yet today. 09/10/20: Loaded with keppra and will start on Keppra BID. Needs EEG on therapy as well as OFF. If patient is in status, needs transfer to a location with continuous EEG capabilities. FiO2 has been weaned back down and is now at 60%, sats in the high 90's. HD per renal. Coags improving. Overall prognosis is guarded to poor. Spoke with on phone yesterday. Consult neurology tomorrow as not available on the weekend. Suggest checking for antibodies as he may be a candidate for convalsescent plasma. Per the , he was diagnosed with COVID on and spent 6 days inpatient at the [facility]. Remains positive now with multisystem organ failure. Explained to that outcome may not be good but need more time to assess. 09/09/20: EEG ordered on yesterday but not done. If done not read. Continue diprovan for now until EEG can be done or interpreted. State Coags but given his oozing from his vascath, will give Vitamin K and FFP. Patient is covid positive so agree with steroids. Not a candidate for remdesivir. Need to check for antibodies, may be a candidate for convalescent plasma. HD per renal. Given improvement in pH will stop bicarb drip. Feed patient. 1. Stop sedation 2. EEG 3. Needs neuro consult. 4. Art line placement 5. Stat repeat of labs, if renal function is truly that bad, will need renal consult. 6. Follow up COVID testing 7. Likely needs echo 8. Will place on bicarb drip. CCT 31 minutes. Subjective Date of service: 09/12/20 Principal diagnosis: Abnormal LFTs, s/p cardiac arrest, acute kidney injury with ATN Interval history: Head CT back showing diffuse cerebral edema. Although not mentioned by Radiology this is likely consistent with anoxic brain injury. Having large outputs of urine now. Sedated on Diprovan and Ativan for seizure therapy along with Keppra 1500 BID. Objective Vital Signs - 12hr 09/11/20 09/11/20 09/11/20 21:41 21:51 22:01 Temperature Pulse Rate 51 L 51 L 50 L Pulse Rate [ From Monitor] Respiratory 30 H 30 H 30 H Rate Blood Pressure 118/46 116/46 119/46 O2 Sat by Pulse 99 99 99 Oximetry 09/11/20 09/11/20 09/11/20 22:11 22:21 22:30 Temperature Pulse Rate 51 L 50 L 51 L Pulse Rate [ From Monitor] Respiratory 30 H 30 H 29 H Rate Blood Pressure 119/46 120/50 119/54 O2 Sat by Pulse 98 98 98 Oximetry 09/11/20 09/11/20 09/11/20 22:41 22:51 23:01 Temperature Pulse Rate 50 L 50 L 50 L Pulse Rate [ From Monitor] Respiratory 30 H 30 H 30 H Rate Blood Pressure 119/54 121/55 121/48 O2 Sat by Pulse 98 98 99 Oximetry 09/11/20 09/11/20 09/11/20 23:11 23:13 23:21 Temperature Pulse Rate 50 L 50 L 50 L Pulse Rate [ From Monitor] Respiratory 30 H 30 H 30 H Rate Blood Pressure 121/48 121/48 117/52 O2 Sat by Pulse 99 98 99 Oximetry 09/11/20 09/11/20 09/11/20 23:31 23:41 23:51 Temperature Pulse Rate 51 L 49 L 52 L Pulse Rate [ From Monitor] Respiratory 30 H 30 H 30 H Rate Blood Pressure 119/49 119/49 119/50 O2 Sat by Pulse 99 98 98 Oximetry 09/11/20 09/12/20 09/12/20 23:58 00:00 00:01 Temperature 97.8 F Pulse Rate 53 L 48 L Pulse Rate [ 51 L From Monitor] Respiratory 30 H 30 H Rate Blood Pressure 124/45 O2 Sat by Pulse 100 99 Oximetry 09/12/20 09/12/20 09/12/20 00:11 00:21 00:30 Temperature Pulse Rate 49 L 49 L 49 L Pulse Rate [ From Monitor] Respiratory 30 H 30 H 30 H Rate Blood Pressure 124/45 117/52 119/53 O2 Sat by Pulse 98 98 99 Oximetry 09/12/20 09/12/20 09/12/20 00:41 00:51 01:00 Temperature Pulse Rate 49 L 48 L 50 L Pulse Rate [ From Monitor] Respiratory 30 H 30 H 30 H Rate Blood Pressure 119/53 120/53 118/53 O2 Sat by Pulse 98 98 99 Oximetry 09/12/20 09/12/20 09/12/20 01:11 01:21 01:30 Temperature Pulse Rate 49 L 50 L 49 L Pulse Rate [ From Monitor] Respiratory 30 H 30 H 30 H Rate Blood Pressure 118/53 121/50 122/54 O2 Sat by Pulse 98 98 99 Oximetry 09/12/20 09/12/20 09/12/20 01:41 01:51 02:01 Temperature Pulse Rate 48 L 49 L 49 L Pulse Rate [ From Monitor] Respiratory 30 H 30 H 30 H Rate Blood Pressure 122/54 122/54 122/51 O2 Sat by Pulse 98 98 99 Oximetry 09/12/20 09/12/20 09/12/20 02:11 02:21 02:30 Temperature Pulse Rate 49 L 49 L 52 L Pulse Rate [ From Monitor] Respiratory 30 H 30 H 23 Rate Blood Pressure 122/51 122/49 122/48 O2 Sat by Pulse 98 98 97 Oximetry 09/12/20 09/12/20 09/12/20 02:40 02:51 03:01 Temperature Pulse Rate 49 L 48 L 49 L Pulse Rate [ From Monitor] Respiratory 30 H 30 H 30 H Rate Blood Pressure 120/43 121/49 O2 Sat by Pulse 98 98 99 Oximetry 09/12/20 09/12/20 09/12/20 03:11 03:21 03:31 Temperature Pulse Rate 48 L 48 L 48 L Pulse Rate [ From Monitor] Respiratory 30 H 30 H 30 H Rate Blood Pressure 121/49 117/49 117/51 O2 Sat by Pulse 98 98 99 Oximetry 09/12/20 09/12/20 09/12/20 03:36 03:39 03:41 Temperature 98.4 F Pulse Rate 51 L 49 L Pulse Rate [ From Monitor] Respiratory 30 H Rate Blood Pressure 117/51 117/51 O2 Sat by Pulse 98 98 Oximetry 09/12/20 09/12/20 09/12/20 03:51 04:00 04:01 Temperature Pulse Rate 50 L 48 L 47 L Pulse Rate [ 51 L From Monitor] Respiratory 30 H 30 H 30 H Rate Blood Pressure 124/54 121/51 O2 Sat by Pulse 98 100 99 Oximetry 09/12/20 09/12/20 09/12/20 04:11 04:21 04:31 Temperature Pulse Rate 49 L 49 L 51 L Pulse Rate [ From Monitor] Respiratory 30 H 29 H 30 H Rate Blood Pressure 121/51 120/50 112/51 O2 Sat by Pulse 98 99 99 Oximetry 09/12/20 09/12/20 09/12/20 04:41 04:51 05:01 Temperature Pulse Rate 50 L 49 L 49 L Pulse Rate [ From Monitor] Respiratory 30 H 30 H 30 H Rate Blood Pressure 112/51 122/52 118/51 O2 Sat by Pulse 99 99 100 Oximetry 09/12/20 09/12/20 09/12/20 05:11 05:21 05:31 Temperature Pulse Rate 49 L 49 L 48 L Pulse Rate [ From Monitor] Respiratory 30 H 30 H 30 H Rate Blood Pressure 118/51 117/54 120/55 O2 Sat by Pulse 99 99 99 Oximetry 09/12/20 09/12/20 09/12/20 05:41 05:51 06:01 Temperature Pulse Rate 48 L 47 L 48 L Pulse Rate [ From Monitor] Respiratory 30 H 30 H 30 H Rate Blood Pressure 120/55 120/55 111/50 O2 Sat by Pulse 99 100 100 Oximetry 09/12/20 09/12/20 09/12/20 06:11 06:21 06:31 Temperature Pulse Rate 48 L 48 L 49 L Pulse Rate [ From Monitor] Respiratory 30 H 30 H 30 H Rate Blood Pressure 111/50 111/50 107/48 O2 Sat by Pulse 99 99 99 Oximetry 09/12/20 09/12/20 09/12/20 06:41 06:51 07:01 Temperature Pulse Rate 51 L 50 L 53 L Pulse Rate [ From Monitor] Respiratory 30 H 19 26 H Rate Blood Pressure 107/48 107/48 109/42 O2 Sat by Pulse 98 99 99 Oximetry 09/12/20 09/12/20 09/12/20 07:11 07:21 07:31 Temperature Pulse Rate 54 L 53 L 61 Pulse Rate [ From Monitor] Respiratory 25 H 18 27 H Rate Blood Pressure 109/42 109/42 118/49 O2 Sat by Pulse 99 99 100 Oximetry 09/12/20 09/12/20 09/12/20 07:41 07:51 08:00 Temperature Pulse Rate 53 L 51 L 62 Pulse Rate [ From Monitor] Respiratory 30 H 22 26 H Rate Blood Pressure 118/49 118/49 115/46 O2 Sat by Pulse 100 99 99 Oximetry 09/12/20 09/12/20 09/12/20 08:11 08:21 08:31 Temperature Pulse Rate 53 L 52 L 51 L Pulse Rate [ From Monitor] Respiratory 30 H 30 H 30 H Rate Blood Pressure 115/46 115/46 115/46 O2 Sat by Pulse 100 99 100 Oximetry 09/12/20 09/12/20 09/12/20 08:39 08:41 08:51 Temperature Pulse Rate 54 L 50 L 47 L Pulse Rate [ From Monitor] Respiratory 30 H 29 H Rate Blood Pressure 115/46 115/46 O2 Sat by Pulse 100 99 99 Oximetry 09/12/20 09/12/20 09:01 09:11 Temperature Pulse Rate 46 L 49 L Pulse Rate [ From Monitor] Respiratory 30 H 30 H Rate Blood Pressure 115/46 115/46 O2 Sat by Pulse 99 99 Oximetry Constitutional: comatose, other (morbidly obese) Eyes: non-icteric ENT: other (orally intubated and sedated) Neck: supple Effort: normal Ascultation: Bilateral: diminished breath sounds Percussion: Bilateral: not dull Cardiovascular: other (bradycardic) Gastrointestinal: soft CBC and BMP: 09/12/20 04:00 09/12/20 Unknown ABG, PT/INR, D-dimer: ABG ABG pH 7.558 (7.320-7.450) H 09/12/20 03:18 POC ABG pCO2 35.7 mmHg (32.0-48.0) 09/12/20 03:18 ABG pCO2 33.4 mm Hg 09/11/20 05:40 POC ABG pO2 74.7 mmHg (83-108) L 09/12/20 03:18 ABG pO2 112.1 mm Hg (80.0-90.0) H 09/11/20 05:40 POC ABG HCO3 31.1 09/12/20 03:18 ABG O2 Saturation 98.4 % (95.0-99.0) 09/11/20 05:40 PT/INR, D-dimer PT 16.1 Sec. (12.2-14.9) H 09/12/20 04:00 INR 1.31 (0.87-1.13) H 09/12/20 04:00 D-Dimer 8315.85 ng/mlDDU (0-234) H 09/07/20 14:00 Abnormal lab findings: Abnormal Labs 09/07/20 09/07/20 09/07/20 13:08 14:00 14:00 WBC 15.7 H RBC Hgb 10.2 L Hct 32.5 L MCHC 31 L RDW 17.5 H Lymph % (Auto) Stanley % (Auto) Lymph # (Auto) Stanley # (Auto) Seg Neutrophils % Seg Neuts % (Manual) 72.0 H Lymphocytes % (Manual) Monocytes % (Manual) 8.0 H Nucleated RBC % Seg Neutrophils # Seg Neutrophils # Man 11.3 H Lymphocytes # (Manual) Monocytes # (Manual) 1.3 H PT INR D-Dimer 8315.85 H ABG pH POC ABG pCO2 POC ABG pO2 ABG pO2 ABG HCO3 ABG Base Excess ABG Hemoglobin ABG Oxyhemoglobin ABG Sodium ABG Potassium ABG Chloride ABG Glucose Carboxyhemoglobin Sodium Potassium Chloride Carbon Dioxide BUN Creatinine Glucose POC Glucose Lactic Acid Calcium Phosphorus Ferritin Total Bilirubin Direct Bilirubin AST ALT Lactate Dehydrogenase Total Creatine Kinase Troponin T Total Protein Albumin Triglycerides Arterial Blood Glucose Arterial Blood Ionized Calcium Urine pH 8.0 H Urine Creatinine Salicylates Acetaminophen Coronavirus (PCR) 09/07/20 09/07/20 09/07/20 14:00 14:00 14:00 WBC RBC Hgb Hct MCHC RDW Lymph % (Auto) Stanley % (Auto) Lymph # (Auto) Stanley # (Auto) Seg Neutrophils % Seg Neuts % (Manual) Lymphocytes % (Manual) Monocytes % (Manual) Nucleated RBC % Seg Neutrophils # Seg Neutrophils # Man Lymphocytes # (Manual) Monocytes # (Manual) PT INR D-Dimer ABG pH POC ABG pCO2 POC ABG pO2 ABG pO2 ABG HCO3 ABG Base Excess ABG Hemoglobin ABG Oxyhemoglobin ABG Sodium ABG Potassium ABG Chloride ABG Glucose Carboxyhemoglobin Sodium Potassium Chloride Carbon Dioxide BUN Creatinine Glucose POC Glucose Lactic Acid 4.30 H* Calcium Phosphorus Ferritin > 2000.0 H Total Bilirubin Direct Bilirubin AST ALT Lactate Dehydrogenase 882 H Total Creatine Kinase 477 H Troponin T 0.076 H Total Protein Albumin Triglycerides Arterial Blood Glucose Arterial Blood Ionized Calcium Urine pH Urine Creatinine Salicylates Acetaminophen Coronavirus (PCR) 09/07/20 09/07/20 09/07/20 14:00 14:00 14:00 WBC RBC Hgb Hct MCHC RDW Lymph % (Auto) Stanley % (Auto) Lymph # (Auto) Stanley # (Auto) Seg Neutrophils % Seg Neuts % (Manual) Lymphocytes % (Manual) Monocytes % (Manual) Nucleated RBC % Seg Neutrophils # Seg Neutrophils # Man Lymphocytes # (Manual) Monocytes # (Manual) PT INR D-Dimer ABG pH POC ABG pCO2 POC ABG pO2 ABG pO2 ABG HCO3 ABG Base Excess ABG Hemoglobin ABG Oxyhemoglobin ABG Sodium ABG Potassium ABG Chloride ABG Glucose Carboxyhemoglobin Sodium Potassium Chloride Carbon Dioxide BUN Creatinine 1.8 H Glucose POC Glucose Lactic Acid Calcium Phosphorus Ferritin Total Bilirubin Direct Bilirubin AST 310 H ALT 339 H Lactate Dehydrogenase Total Creatine Kinase Troponin T Total Protein Albumin 3.6 L Triglycerides Arterial Blood Glucose Arterial Blood Ionized Calcium Urine pH Urine Creatinine Salicylates < 0.3 L Acetaminophen 5.0 L Coronavirus (PCR) 09/07/20 09/08/20 09/08/20 14:26 04:00 04:17 WBC RBC Hgb Hct MCHC RDW Lymph % (Auto) Stanley % (Auto) Lymph # (Auto) Stanley # (Auto) Seg Neutrophils % Seg Neuts % (Manual) Lymphocytes % (Manual) Monocytes % (Manual) Nucleated RBC % Seg Neutrophils # Seg Neutrophils # Man Lymphocytes # (Manual) Monocytes # (Manual) PT INR D-Dimer ABG pH 7.037 L 7.095 L POC ABG pCO2 92.4 H 68.0 H POC ABG pO2 130.8 H 43.5 L ABG pO2 ABG HCO3 ABG Base Excess ABG Hemoglobin 11.3 L 10.6 L ABG Oxyhemoglobin 70.8 L ABG Sodium ABG Potassium 7.0 H ABG Chloride 108.0 H ABG Glucose Carboxyhemoglobin 0.3 L Sodium Potassium 8.4 H* D Chloride Carbon Dioxide 17 L D BUN 38 H Creatinine 3.9 H D Glucose POC Glucose Lactic Acid Calcium 7.7 L D Phosphorus Ferritin Total Bilirubin Direct Bilirubin AST ALT Lactate Dehydrogenase Total Creatine Kinase Troponin T Total Protein Albumin Triglycerides Arterial Blood Glucose Arterial Blood Ionized Calcium 4.5 L Urine pH Urine Creatinine Salicylates Acetaminophen Coronavirus (PCR) 09/08/20 09/08/20 09/08/20 05:00 05:25 12:02 WBC RBC Hgb Hct MCHC RDW Lymph % (Auto) Stanley % (Auto) Lymph # (Auto) Stanley # (Auto) Seg Neutrophils % Seg Neuts % (Manual) Lymphocytes % (Manual) Monocytes % (Manual) Nucleated RBC % Seg Neutrophils # Seg Neutrophils # Man Lymphocytes # (Manual) Monocytes # (Manual) PT INR D-Dimer ABG pH 7.088 L POC ABG pCO2 69.1 H POC ABG pO2 35.2 L ABG pO2 ABG HCO3 ABG Base Excess ABG Hemoglobin 10.9 L ABG Oxyhemoglobin 57.1 L ABG Sodium ABG Potassium 7.0 H ABG Chloride 108.0 H ABG Glucose Carboxyhemoglobin 0.4 L Sodium Potassium 8.1 H* Chloride Carbon Dioxide 17 L BUN 38 H Creatinine 3.7 H Glucose POC Glucose Lactic Acid Calcium 8.0 L Phosphorus 8.00 H Ferritin Total Bilirubin Direct Bilirubin 0.5 H AST 3696 H ALT 3331 H Lactate Dehydrogenase Total Creatine Kinase Troponin T Total Protein Albumin 3.5 L Triglycerides Arterial Blood Glucose Arterial Blood Ionized Calcium 4.4 L Urine pH Urine Creatinine Salicylates Acetaminophen Coronavirus (PCR) 09/08/20 09/08/20 09/08/20 16:31 22:36 Unknown WBC RBC Hgb Hct MCHC RDW Lymph % (Auto) Stanley % (Auto) Lymph # (Auto) Stanley # (Auto) Seg Neutrophils % Seg Neuts % (Manual) Lymphocytes % (Manual) Monocytes % (Manual) Nucleated RBC % Seg Neutrophils # Seg Neutrophils # Man Lymphocytes # (Manual) Monocytes # (Manual) PT INR D-Dimer ABG pH POC ABG pCO2 POC ABG pO2 ABG pO2 ABG HCO3 ABG Base Excess ABG Hemoglobin ABG Oxyhemoglobin ABG Sodium ABG Potassium ABG Chloride ABG Glucose Carboxyhemoglobin Sodium Potassium 5.3 H D Chloride Carbon Dioxide BUN Creatinine Glucose POC Glucose 158 H Lactic Acid Calcium Phosphorus Ferritin Total Bilirubin Direct Bilirubin AST ALT Lactate Dehydrogenase Total Creatine Kinase Troponin T Total Protein Albumin Triglycerides Arterial Blood Glucose Arterial Blood Ionized Calcium Urine pH Urine Creatinine Salicylates Acetaminophen Coronavirus (PCR) Positive A 09/08/20 09/08/20 09/08/20 Unknown Unknown Unknown WBC 18.4 H RBC Hgb 10.1 L Hct 32.0 L MCHC RDW 18.2 H Lymph % (Auto) Stanley % (Auto) Lymph # (Auto) Stanley # (Auto) Seg Neutrophils % Seg Neuts % (Manual) 81.0 H Lymphocytes % (Manual) 2.0 L Monocytes % (Manual) Nucleated RBC % 1.0 H Seg Neutrophils # Seg Neutrophils # Man 14.9 H Lymphocytes # (Manual) 0.4 L Monocytes # (Manual) 1.1 H PT 21.2 H INR 1.83 H D-Dimer ABG pH POC ABG pCO2 POC ABG pO2 ABG pO2 ABG HCO3 ABG Base Excess ABG Hemoglobin ABG Oxyhemoglobin ABG Sodium ABG Potassium ABG Chloride ABG Glucose Carboxyhemoglobin Sodium Potassium Chloride Carbon Dioxide BUN Creatinine Glucose POC Glucose Lactic Acid Calcium Phosphorus Ferritin Total Bilirubin Direct Bilirubin AST ALT Lactate Dehydrogenase Total Creatine Kinase Troponin T Total Protein Albumin Triglycerides Arterial Blood Glucose Arterial Blood Ionized Calcium Urine pH Urine Creatinine 182.4 H Salicylates Acetaminophen Coronavirus (PCR) 09/09/20 09/09/20 09/09/20 03:14 04:20 04:20 WBC 16.3 H RBC 3.12 L Hgb 8.6 L Hct 26.8 L MCHC RDW 18.2 H Lymph % (Auto) 6.3 L Stanley % (Auto) 8.8 H Lymph # (Auto) 1.0 L Stanley # (Auto) 1.4 H Seg Neutrophils % 84.5 H Seg Neuts % (Manual) Lymphocytes % (Manual) Monocytes % (Manual) Nucleated RBC % Seg Neutrophils # 13.7 H Seg Neutrophils # Man Lymphocytes # (Manual) Monocytes # (Manual) PT INR D-Dimer ABG pH POC ABG pCO2 POC ABG pO2 148.5 H ABG pO2 ABG HCO3 ABG Base Excess ABG Hemoglobin 9.4 L ABG Oxyhemoglobin 98.8 H ABG Sodium 134.8 L ABG Potassium 5.0 H ABG Chloride ABG Glucose 222 H Carboxyhemoglobin 0.1 L Sodium Potassium 5.2 H Chloride Carbon Dioxide BUN 47 H Creatinine 4.3 H Glucose 211 H POC Glucose Lactic Acid Calcium 7.4 L Phosphorus Ferritin Total Bilirubin Direct Bilirubin AST 13333 H ALT 6206 H Lactate Dehydrogenase Total Creatine Kinase Troponin T Total Protein 5.6 L Albumin 3.0 L Triglycerides Arterial Blood Glucose 222 H Arterial Blood Ionized Calcium 3.8 L Urine pH Urine Creatinine Salicylates Acetaminophen Coronavirus (PCR) 09/09/20 09/09/20 09/09/20 10:00 12:23 18:22 WBC RBC Hgb Hct MCHC RDW Lymph % (Auto) Stanley % (Auto) Lymph # (Auto) Stanley # (Auto) Seg Neutrophils % Seg Neuts % (Manual) Lymphocytes % (Manual) Monocytes % (Manual) Nucleated RBC % Seg Neutrophils # Seg Neutrophils # Man Lymphocytes # (Manual) Monocytes # (Manual) PT 21.7 H INR 1.90 H D-Dimer ABG pH POC ABG pCO2 POC ABG pO2 ABG pO2 ABG HCO3 ABG Base Excess ABG Hemoglobin ABG Oxyhemoglobin ABG Sodium ABG Potassium ABG Chloride ABG Glucose Carboxyhemoglobin Sodium Potassium Chloride Carbon Dioxide BUN Creatinine Glucose POC Glucose 216 H 211 H Lactic Acid Calcium Phosphorus Ferritin Total Bilirubin Direct Bilirubin AST ALT Lactate Dehydrogenase Total Creatine Kinase Troponin T Total Protein Albumin Triglycerides Arterial Blood Glucose Arterial Blood Ionized Calcium Urine pH Urine Creatinine Salicylates Acetaminophen Coronavirus (PCR) 09/10/20 09/10/20 09/10/20 04:00 04:05 04:05 WBC 15.0 H RBC 3.06 L Hgb 8.6 L Hct 25.8 L MCHC RDW 18.0 H Lymph % (Auto) Stanley % (Auto) Lymph # (Auto) Stanley # (Auto) Seg Neutrophils % Seg Neuts % (Manual) 86.0 H Lymphocytes % (Manual) 6.0 L Monocytes % (Manual) 8.0 H Nucleated RBC % Seg Neutrophils # Seg Neutrophils # Man 12.9 H Lymphocytes # (Manual) 0.9 L Monocytes # (Manual) 1.2 H PT 18.4 H INR 1.54 H D-Dimer ABG pH POC ABG pCO2 POC ABG pO2 ABG pO2 ABG HCO3 ABG Base Excess ABG Hemoglobin ABG Oxyhemoglobin ABG Sodium ABG Potassium ABG Chloride ABG Glucose Carboxyhemoglobin Sodium 134 L Potassium Chloride 93.7 L Carbon Dioxide BUN 46 H Creatinine 3.6 H Glucose 275 H POC Glucose Lactic Acid Calcium 7.7 L Phosphorus Ferritin Total Bilirubin 1.30 H Direct Bilirubin AST 5899 H ALT 6440 H Lactate Dehydrogenase Total Creatine Kinase Troponin T Total Protein 5.9 L Albumin 3.3 L Triglycerides Arterial Blood Glucose Arterial Blood Ionized Calcium Urine pH Urine Creatinine Salicylates Acetaminophen Coronavirus (PCR) 09/10/20 09/10/20 09/10/20 04:35 12:06 17:42 WBC RBC Hgb Hct MCHC RDW Lymph % (Auto) Stanley % (Auto) Lymph # (Auto) Stanley # (Auto) Seg Neutrophils % Seg Neuts % (Manual) Lymphocytes % (Manual) Monocytes % (Manual) Nucleated RBC % Seg Neutrophils # Seg Neutrophils # Man Lymphocytes # (Manual) Monocytes # (Manual) PT INR D-Dimer ABG pH 7.464 H POC ABG pCO2 POC ABG pO2 ABG pO2 ABG HCO3 ABG Base Excess ABG Hemoglobin 9.9 L ABG Oxyhemoglobin ABG Sodium 131.6 L ABG Potassium ABG Chloride 97.0 L ABG Glucose 281 H Carboxyhemoglobin 0.1 L Sodium Potassium Chloride Carbon Dioxide BUN Creatinine Glucose POC Glucose 298 H 340 H Lactic Acid Calcium Phosphorus Ferritin Total Bilirubin Direct Bilirubin AST ALT Lactate Dehydrogenase Total Creatine Kinase Troponin T Total Protein Albumin Triglycerides Arterial Blood Glucose 281 H Arterial Blood Ionized Calcium 3.9 L Urine pH Urine Creatinine Salicylates Acetaminophen Coronavirus (PCR) 09/10/20 09/11/20 09/11/20 23:07 04:44 05:17 WBC RBC Hgb Hct MCHC RDW Lymph % (Auto) Stanley % (Auto) Lymph # (Auto) Stanley # (Auto) Seg Neutrophils % Seg Neuts % (Manual) Lymphocytes % (Manual) Monocytes % (Manual) Nucleated RBC % Seg Neutrophils # Seg Neutrophils # Man Lymphocytes # (Manual) Monocytes # (Manual) PT 16.9 H INR 1.39 H D-Dimer ABG pH POC ABG pCO2 POC ABG pO2 ABG pO2 ABG HCO3 ABG Base Excess ABG Hemoglobin ABG Oxyhemoglobin ABG Sodium ABG Potassium ABG Chloride ABG Glucose Carboxyhemoglobin Sodium Potassium Chloride Carbon Dioxide BUN Creatinine Glucose POC Glucose 367 H 416 H Lactic Acid Calcium Phosphorus Ferritin Total Bilirubin Direct Bilirubin AST ALT Lactate Dehydrogenase Total Creatine Kinase Troponin T Total Protein Albumin Triglycerides Arterial Blood Glucose Arterial Blood Ionized Calcium Urine pH Urine Creatinine Salicylates Acetaminophen Coronavirus (PCR) 09/11/20 09/11/20 09/11/20 05:40 12:01 17:50 WBC RBC Hgb Hct MCHC RDW Lymph % (Auto) Stanley % (Auto) Lymph # (Auto) Stanley # (Auto) Seg Neutrophils % Seg Neuts % (Manual) Lymphocytes % (Manual) Monocytes % (Manual) Nucleated RBC % Seg Neutrophils # Seg Neutrophils # Man Lymphocytes # (Manual) Monocytes # (Manual) PT INR D-Dimer ABG pH 7.543 H POC ABG pCO2 POC ABG pO2 ABG pO2 112.1 H ABG HCO3 28.1 H ABG Base Excess 5.4 H ABG Hemoglobin 8.4 L ABG Oxyhemoglobin ABG Sodium ABG Potassium ABG Chloride ABG Glucose Carboxyhemoglobin Sodium Potassium Chloride Carbon Dioxide BUN Creatinine Glucose POC Glucose 418 H 404 H Lactic Acid Calcium Phosphorus Ferritin Total Bilirubin Direct Bilirubin AST ALT Lactate Dehydrogenase Total Creatine Kinase Troponin T Total Protein Albumin Triglycerides Arterial Blood Glucose Arterial Blood Ionized Calcium Urine pH Urine Creatinine Salicylates Acetaminophen Coronavirus (PCR) 09/11/20 09/12/20 09/12/20 23:10 03:18 04:00 WBC RBC Hgb Hct MCHC RDW Lymph % (Auto) Stanley % (Auto) Lymph # (Auto) Stanley # (Auto) Seg Neutrophils % Seg Neuts % (Manual) Lymphocytes % (Manual) Monocytes % (Manual) Nucleated RBC % Seg Neutrophils # Seg Neutrophils # Man Lymphocytes # (Manual) Monocytes # (Manual) PT 16.1 H INR 1.31 H D-Dimer ABG pH 7.558 H POC ABG pCO2 POC ABG pO2 74.7 L ABG pO2 ABG HCO3 ABG Base Excess ABG Hemoglobin 9.7 L ABG Oxyhemoglobin ABG Sodium 132.4 L ABG Potassium ABG Chloride 95.0 L ABG Glucose 437 H Carboxyhemoglobin Sodium 135 L Potassium Chloride 92.3 L Carbon Dioxide BUN 62 H Creatinine 3.7 H Glucose 406 H POC Glucose Lactic Acid Calcium Phosphorus Ferritin Total Bilirubin Direct Bilirubin AST 687 H ALT 3701 H Lactate Dehydrogenase Total Creatine Kinase Troponin T Total Protein 5.8 L Albumin 3.1 L Triglycerides Arterial Blood Glucose 437 H Arterial Blood Ionized Calcium 4.3 L Urine pH Urine Creatinine Salicylates Acetaminophen Coronavirus (PCR) 09/12/20 09/12/20 09/12/20 04:00 Unknown Unknown WBC 13.7 H RBC 3.30 L Hgb 9.3 L Hct 27.6 L MCHC RDW 17.5 H Lymph % (Auto) Stanley % (Auto) Lymph # (Auto) Stanley # (Auto) Seg Neutrophils % Seg Neuts % (Manual) 76.0 H Lymphocytes % (Manual) 11.0 L Monocytes % (Manual) 13.0 H Nucleated RBC % Seg Neutrophils # Seg Neutrophils # Man 10.4 H Lymphocytes # (Manual) Monocytes # (Manual) 1.8 H PT INR D-Dimer ABG pH POC ABG pCO2 POC ABG pO2 ABG pO2 ABG HCO3 ABG Base Excess ABG Hemoglobin ABG Oxyhemoglobin ABG Sodium ABG Potassium ABG Chloride ABG Glucose Carboxyhemoglobin Sodium 135 L Potassium Chloride 92.2 L Carbon Dioxide BUN 65 H Creatinine 3.5 H Glucose 418 H POC Glucose Lactic Acid Calcium Phosphorus Ferritin Total Bilirubin Direct Bilirubin AST 553 H ALT 3453 H Lactate Dehydrogenase Total Creatine Kinase Troponin T Total Protein 5.9 L Albumin 3.0 L Triglycerides 220 H Arterial Blood Glucose Arterial Blood Ionized Calcium Urine pH Urine Creatinine Salicylates Acetaminophen Coronavirus (PCR)
[2020-09-12] MEDS: levETIRAcetam 1,500 MG in DEXTROSE 5% IN WATER 100 ML IV SCH ×2 (09:46→22:15)
[2020-09-12] MEDS: MULTIVITAMINS 5 ML ORAL LIQUID PO SCH (09:47)
[2020-09-12] MEDS: LANSOPRAZOLE 30 MG SOLUTAB FEEDTUBE SCH ×2 (09:47→22:12)
[2020-09-12] MEDS ORDERED: INSULIN GLARGINE 100 UNITS/ML SUB-Q SCH (10:00)
[2020-09-12] MEDS: PANTOPRAZOLE 40 MG INJ IV SCH (11:51)
--- NOTE | 2020-09-12 15:11 | Progress Note ---
Assessment and Plan Cultures: Blood culture 09/07/2020 no growth SARS CoV2 PCR positive 09/07/2020 urine culture: No growth HIV, hepatitis panel: Negative Assessment: 65 years old male with unknown medical history, morbidly obese, brought to the ED by EMS on 09/07/2020 secondary to passing out, found in out of hospital cardiac arrest status post resuscitation, intubated in the field: #[id number] cardiac arrest/shock #Bilateral pneumonia secondary to COVID-19 infection. Inflammatory markers elevated. D-dimer was 8315. apparently, patient was recently hospitalized at the [place] for COVID-19 prior to admission here. Not a candidate for remdesivir due to hepatic and renal failure #Acute hypoxic respiratory failure: on the vent. #Acute renal failure: Creatinine elevated. Likely secondary to cardiac arrest/COVID-19 infection #Shock liver, transaminitis: Viral hepatitis panel negative. #Acute Encephalopathy: Initial GCS 3, noted myoclonic jerking.? Anoxic brain injury. CT of the head unremarkable. Recs: -continue off abx. Fevers are probably due to seizures/central fever. Cultures are negative thus far -Guarded prognosis Marisol Stock MD, FACP [facility] O: [phone] F: [phone] Subjective Date of service: 09/12/20 Principal diagnosis: Abnormal LFTs, s/p cardiac arrest, acute kidney injury with ATN Interval history: Afebrile. Remains on the vent. LFTs are downtrending. Objective - Exam Narrative Exam: Physical Exam (reviewed in chart to minimize risk of transmission) Constitutional: deferred Head, Ears, Nose: deferred Eyes: deferred Neck: deferred Oral: deferred Cardiovascular: deferred Respiratory: deferred GI: deferred Musculoskeletal: deferred Skin: deferred Hem/Lymphatic: deferred Psych: deferred Neurological: deferred - Constitutional Vitals: Vital Signs Temp Pulse Resp BP Pulse Ox 97.5 F L 55 L 30 H 122/46 100 09/12/20 08:00 09/12/20 15:01 09/12/20 15:01 09/12/20 15:01 09/12/20 15:01 Temperature -Last 24 Hours Temperature 97.5 F Temperature 98.4 F Temperature 97.8 F Temperature 97.7 F Temperature 98.9 F - Labs CBC & Chem 7: 09/12/20 04:00 09/12/20 Unknown Labs: Abnormal lab results 09/11/20 09/11/20 09/11/20 Range/Units 17:50 23:10 23:43 WBC (4.5-11.0) K/mm3 RBC (3.65-5.03) M/mm3 Hgb (11.8-15.2) gm/dl Hct (35.5-45.6) % RDW (13.2-15.2) % Seg Neuts % (Manual) (40.0-70.0) % Lymphocytes % (Manual) (13.4-35.0) % Monocytes % (Manual) (0.0-7.3) % Seg Neutrophils # Man (1.8-7.7) K/mm3 Monocytes # (Manual) (0.0-0.8) K/mm3 PT (12.2-14.9) Sec. INR (0.87-1.13) ABG pH (7.320-7.450) POC ABG pO2 (83-108) mmHg ABG Hemoglobin (12.0-17.5) ABG Sodium (136.0-145.0) mmol/L ABG Chloride (98-107) mmol/L ABG Glucose (65-95) mg/dL Sodium 135 L (137-145) mmol/L Chloride 92.3 L (98-107) mmol/L BUN 62 H (9-20) mg/dL Creatinine 3.7 H (0.8-1.3) mg/dL Glucose 406 H (75-100) mg/dL POC Glucose 404 H 372 H (70-105) mg/dL AST 687 H (5-40) units/L ALT 3701 H (7-56) units/L Total Protein 5.8 L (6.3-8.2) g/dL Albumin 3.1 L (3.9-5) g/dL Triglycerides (2-149) mg/dL Arterial Blood Glucose (65-95) mg/dL Arterial Blood Ionized Calcium (4.6-5.3) mg/dL 09/12/20 09/12/20 09/12/20 Range/Units 03:15 03:18 04:00 WBC (4.5-11.0) K/mm3 RBC (3.65-5.03) M/mm3 Hgb (11.8-15.2) gm/dl Hct (35.5-45.6) % RDW (13.2-15.2) % Seg Neuts % (Manual) (40.0-70.0) % Lymphocytes % (Manual) (13.4-35.0) % Monocytes % (Manual) (0.0-7.3) % Seg Neutrophils # Man (1.8-7.7) K/mm3 Monocytes # (Manual) (0.0-0.8) K/mm3 PT 16.1 H (12.2-14.9) Sec. INR 1.31 H (0.87-1.13) ABG pH 7.558 H (7.320-7.450) POC ABG pO2 74.7 L (83-108) mmHg ABG Hemoglobin 9.7 L (12.0-17.5) ABG Sodium 132.4 L (136.0-145.0) mmol/L ABG Chloride 95.0 L (98-107) mmol/L ABG Glucose 437 H (65-95) mg/dL Sodium (137-145) mmol/L Chloride (98-107) mmol/L BUN (9-20) mg/dL Creatinine (0.8-1.3) mg/dL Glucose (75-100) mg/dL POC Glucose 359 H (70-105) mg/dL AST (5-40) units/L ALT (7-56) units/L Total Protein (6.3-8.2) g/dL Albumin (3.9-5) g/dL Triglycerides (2-149) mg/dL Arterial Blood Glucose 437 H (65-95) mg/dL Arterial Blood Ionized Calcium 4.3 L (4.6-5.3) mg/dL 09/12/20 09/12/20 09/12/20 Range/Units 04:00 04:21 05:20 WBC 13.7 H (4.5-11.0) K/mm3 RBC 3.30 L (3.65-5.03) M/mm3 Hgb 9.3 L (11.8-15.2) gm/dl Hct 27.6 L (35.5-45.6) % RDW 17.5 H (13.2-15.2) % Seg Neuts % (Manual) 76.0 H (40.0-70.0) % Lymphocytes % (Manual) 11.0 L (13.4-35.0) % Monocytes % (Manual) 13.0 H (0.0-7.3) % Seg Neutrophils # Man 10.4 H (1.8-7.7) K/mm3 Monocytes # (Manual) 1.8 H (0.0-0.8) K/mm3 PT (12.2-14.9) Sec. INR (0.87-1.13) ABG pH (7.320-7.450) POC ABG pO2 (83-108) mmHg ABG Hemoglobin (12.0-17.5) ABG Sodium (136.0-145.0) mmol/L ABG Chloride (98-107) mmol/L ABG Glucose (65-95) mg/dL Sodium (137-145) mmol/L Chloride (98-107) mmol/L BUN (9-20) mg/dL Creatinine (0.8-1.3) mg/dL Glucose (75-100) mg/dL POC Glucose 417 H 397 H (70-105) mg/dL AST (5-40) units/L ALT (7-56) units/L Total Protein (6.3-8.2) g/dL Albumin (3.9-5) g/dL Triglycerides (2-149) mg/dL Arterial Blood Glucose (65-95) mg/dL Arterial Blood Ionized Calcium (4.6-5.3) mg/dL 09/12/20 09/12/20 09/12/20 Range/Units 06:37 11:56 Unknown WBC (4.5-11.0) K/mm3 RBC (3.65-5.03) M/mm3 Hgb (11.8-15.2) gm/dl Hct (35.5-45.6) % RDW (13.2-15.2) % Seg Neuts % (Manual) (40.0-70.0) % Lymphocytes % (Manual) (13.4-35.0) % Monocytes % (Manual) (0.0-7.3) % Seg Neutrophils # Man (1.8-7.7) K/mm3 Monocytes # (Manual) (0.0-0.8) K/mm3 PT (12.2-14.9) Sec. INR (0.87-1.13) ABG pH (7.320-7.450) POC ABG pO2 (83-108) mmHg ABG Hemoglobin (12.0-17.5) ABG Sodium (136.0-145.0) mmol/L ABG Chloride (98-107) mmol/L ABG Glucose (65-95) mg/dL Sodium (137-145) mmol/L Chloride (98-107) mmol/L BUN (9-20) mg/dL Creatinine (0.8-1.3) mg/dL Glucose (75-100) mg/dL POC Glucose 370 H 341 H (70-105) mg/dL AST (5-40) units/L ALT (7-56) units/L Total Protein (6.3-8.2) g/dL Albumin (3.9-5) g/dL Triglycerides 220 H (2-149) mg/dL Arterial Blood Glucose (65-95) mg/dL Arterial Blood Ionized Calcium (4.6-5.3) mg/dL 09/12/20 Range/Units Unknown WBC (4.5-11.0) K/mm3 RBC (3.65-5.03) M/mm3 Hgb (11.8-15.2) gm/dl Hct (35.5-45.6) % RDW (13.2-15.2) % Seg Neuts % (Manual) (40.0-70.0) % Lymphocytes % (Manual) (13.4-35.0) % Monocytes % (Manual) (0.0-7.3) % Seg Neutrophils # Man (1.8-7.7) K/mm3 Monocytes # (Manual) (0.0-0.8) K/mm3 PT (12.2-14.9) Sec. INR (0.87-1.13) ABG pH (7.320-7.450) POC ABG pO2 (83-108) mmHg ABG Hemoglobin (12.0-17.5) ABG Sodium (136.0-145.0) mmol/L ABG Chloride (98-107) mmol/L ABG Glucose (65-95) mg/dL Sodium 135 L (137-145) mmol/L Chloride 92.2 L (98-107) mmol/L BUN 65 H (9-20) mg/dL Creatinine 3.5 H (0.8-1.3) mg/dL Glucose 418 H (75-100) mg/dL POC Glucose (70-105) mg/dL AST 553 H (5-40) units/L ALT 3453 H (7-56) units/L Total Protein 5.9 L (6.3-8.2) g/dL Albumin 3.0 L (3.9-5) g/dL Triglycerides (2-149) mg/dL Arterial Blood Glucose (65-95) mg/dL Arterial Blood Ionized Calcium (4.6-5.3) mg/dL
--- NOTE | 2020-09-12 17:52 | Consultation ---
History of Present Illness Consult date: 09/12/20 Chief complaint: Evaluation of Coma Consult was for evaluation of neurological evaluation following cardiac arrest. History of present illness: I have reviewed the History From Existing HPI and Nurse . Past History Past Medical History: other (Unobtainable) Past Surgical History: Other (Unobtainable) Social history: other (Unobtainable) Family history: other (Unobtainable) Medications and Allergies Allergies Allergy/AdvReac Type Severity Reaction Status Date / Time Unable to Assess Allergy Verified 09/07/20 13:43 Home Medications Medication Instructions Recorded Confirmed Last Taken Type Albuterol Sulfate 60 mcg IH PRN 09/11/20 09/11/20 Unknown History Cholecalciferol (Vitamin D3) 25 tab PO DAILY 09/11/20 09/11/20 Unknown History Cozaar 25 tab PO DAILY 09/11/20 09/11/20 Unknown History HumaLOG 14 unit SQ AC 09/11/20 09/11/20 Unknown History Hydralazine HCl 50 tab PO TID 09/11/20 09/11/20 Unknown History Isosorbide Dinitrate 30 mg PO DAILY 09/11/20 09/11/20 Unknown History Lantus VIAL 54 units SQ HS 09/11/20 09/11/20 Unknown History Lasix 20 tab PO DAILY 09/11/20 09/11/20 Unknown History Nifedipine 30 tab PO DAILY 09/11/20 09/11/20 Unknown History Active Meds: Active Medications Acetaminophen (Acetaminophen 325 Mg/10.15 Ml Oral Liqd Unit Dose) 400 mg PO Q4HR PRN PRN Reason: Non Cardiac Pain or Temp>100.5 Last Admin: 09/10/20 21:42 Dose: 400 mg Documented by: Lipase/Protease/Amylase (Lipase 10,500/Protease 25,000/Amylase 43,750 (Units) Dr Armenta) 1 each FEEDTUBE PRN PRN PRN Reason: For Clogged Feeding Tube Fentanyl (Fentanyl 100 Mcg/2 Ml Inj) 50 mcg IV Q10MIN PRN PRN Reason: ANALGESIA Last Admin: 09/07/20 19:26 Dose: 50 mcg Documented by: Hydrophilic Ointment (Lip Therapy Vaseline) 1 applic TP Q2HR PRN PRN Reason: Dry Lips Azithromycin (Zithromax/Ns) 500 mg in 250 mls @ 250 mls/hr IV Q24H TAYLOR; Protocol Stop: 09/12/20 18:59 Last Admin: 09/11/20 17:55 Dose: 250 mls/hr Documented by: Norepinephrine (Levophed Drip 4 Mg/Ns 250 Ml) 4 mg in 250 mls @ 7.5 mls/hr IV TITR TAYLOR; Protocol Last Titration: 09/08/20 12:00 Dose: 0 mcg/min, 0 mls/hr Documented by: Lorazepam 100 mg/ Sodium Chloride/ Miscellaneous Information 100 mls @ 1 mls/hr IV TITR TAYLOR; Protocol Last Titration: 09/12/20 17:22 Dose: 0 mg/hr, 0 mls/hr Documented by: Vasopressin 20 unit/ Sodium (Chloride) 101 mls @ 9.09 mls/hr IV TITR TAYLOR; Protocol Last Titration: 09/08/20 08:43 Dose: 0 units/min, 0 mls/hr Documented by: Propofol (Diprivan 10 Mg/Ml) 1,000 mg in 100 mls @ 4.995 mls/hr IV TITR TAYLOR; Protocol Last Admin: 09/12/20 13:50 Dose: 20 mcg/kg/min, 19.98 mls/hr Documented by: Sodium Chloride (Nacl 0.9%) 100 mls @ 999 mls/hr IV JAYJAY PRN PRN Reason: Hypotension Levetiracetam 1,500 mg/ (Dextrose) 115 mls @ 400 mls/hr IV BID TAYLOR Last Admin: 09/12/20 09:46 Dose: 400 mls/hr Documented by: Ceftriaxone Sodium (Rocephin/Ns 2 Gm/100 Ml) 2 gm in 100 mls @ 200 mls/hr IV ONCE TAYLOR; Protocol Stop: 09/12/20 19:30 Insulin Glargine (Insulin Glargine 100 Units/Ml) 20 units SUB-Q DAILY TAY[facility]OR Last Admin: 09/12/20 09:47 Dose: 20 units Documented by: Insulin Human Lispro (Insulin Lispro 100 Unit/Ml) 0 unit SUB-Q Q6HR TAYLOR; Protocol Last Admin: 09/12/20 13:05 Dose: 8 unit Documented by: Lansoprazole (Lansoprazole 30 Mg Solutab) 30 mg FEEDTUBE BID TAYLOR Last Admin: 09/12/20 09:47 Dose: 30 mg Documented by: Lorazepam (Lorazepam 2 Mg/Ml Vial) 2 mg IV Q4H PRN PRN Reason: Seizures Last Admin: 09/10/20 16:04 Dose: 2 mg Documented by: Lorazepam (Lorazepam 2 Mg/Ml Vial) 2 mg IV Q10MIN PRN PRN Reason: Agitation Last Admin: 09/11/20 04:13 Dose: 2 mg Documented by: Multi-Ingred Cream/Lotion/Oil/Oint (Mineral Oil/Petrolatum, White Ophth Oint 3.5 Gm) 1 applic OU Q4HR PRN PRN Reason: Dry Eye(s) Multivitamins (Multivitamins 5 Ml Oral Liquid) 5 ml PO QDAY [facility] Last Admin: 09/12/20 09:47 Dose: 5 ml Documented by: Ondansetron HCl (Ondansetron 4 Mg/2 Ml Inj) 4 mg IV Q8H PRN PRN Reason: Nausea And Vomiting Simple Syrup (Simple Syrup 15 Ml) 15 ml FEEDTUBE PRN PRN PRN Reason: Hypoglycemia Simple Syrup (Simple Syrup 15 Ml) 30 ml FEEDTUBE PRN PRN PRN Reason: Hypoglycemia Sodium Bicarbonate (Sodium Bicarbonate 325 Mg Tab) 325 mg FEEDTUBE PRN PRN PRN Reason: For Clogged Feeding Tube Sodium Chloride (Sodium Chloride 0.9% 10 Ml Flush Syringe) 10 ml IV BID [facility] Last Admin: 09/12/20 09:47 Dose: 10 ml Documented by: Sodium Chloride (Sodium Chloride 0.9% 10 Ml Flush Syringe) 10 ml IV PRN PRN PRN Reason: LINE FLUSH Physical Examination - Vital Signs Vital Signs: Vital Signs Pulse BP Pulse Ox 82 197/91 92 09/07/20 13:00 09/07/20 13:00 09/07/20 13:00 - Physical Exam Narrative exam: The patient was not examined due to COVID issues, there is no Gag present , no movements per nursing staff . Results - Laboratory Findings CBC and BMP: 09/12/20 04:00 09/12/20 Unknown Abnormal Lab Findings: Abnormal Labs 09/07/20 09/07/20 09/07/20 13:08 14:00 14:00 WBC 15.7 H RBC Hgb 10.2 L Hct 32.5 L MCHC 31 L RDW 17.5 H Lymph % (Auto) [place] % (Auto) Lymph # (Auto) [place] # (Auto) Seg Neutrophils % Seg Neuts % (Manual) 72.0 H Lymphocytes % (Manual) Monocytes % (Manual) 8.0 H Nucleated RBC % Seg Neutrophils # Seg Neutrophils # Man 11.3 H Lymphocytes # (Manual) Monocytes # (Manual) 1.3 H PT INR D-Dimer 8315.85 H ABG pH POC ABG pCO2 POC ABG pO2 ABG pO2 ABG HCO3 ABG Base Excess ABG Hemoglobin ABG Oxyhemoglobin ABG Sodium ABG Potassium ABG Chloride ABG Glucose Carboxyhemoglobin Sodium Potassium Chloride Carbon Dioxide BUN Creatinine Glucose POC Glucose Lactic Acid Calcium Phosphorus Ferritin Total Bilirubin Direct Bilirubin AST ALT Lactate Dehydrogenase Total Creatine Kinase Troponin T Total Protein Albumin Triglycerides Arterial Blood Glucose Arterial Blood Ionized Calcium Urine pH 8.0 H Urine Creatinine Salicylates Acetaminophen Coronavirus (PCR) 09/07/20 09/07/20 09/07/20 14:00 14:00 14:00 WBC RBC Hgb Hct MCHC RDW Lymph % (Auto) [place] % (Auto) Lymph # (Auto) [place] # (Auto) Seg Neutrophils % Seg Neuts % (Manual) Lymphocytes % (Manual) Monocytes % (Manual) Nucleated RBC % Seg Neutrophils # Seg Neutrophils # Man Lymphocytes # (Manual) Monocytes # (Manual) PT INR D-Dimer ABG pH POC ABG pCO2 POC ABG pO2 ABG pO2 ABG HCO3 ABG Base Excess ABG Hemoglobin ABG Oxyhemoglobin ABG Sodium ABG Potassium ABG Chloride ABG Glucose Carboxyhemoglobin Sodium Potassium Chloride Carbon Dioxide BUN Creatinine Glucose POC Glucose Lactic Acid 4.30 H* Calcium Phosphorus Ferritin > 2000.0 H Total Bilirubin Direct Bilirubin AST ALT Lactate Dehydrogenase 882 H Total Creatine Kinase 477 H Troponin T 0.076 H Total Protein Albumin Triglycerides Arterial Blood Glucose Arterial Blood Ionized Calcium Urine pH Urine Creatinine Salicylates Acetaminophen Coronavirus (PCR) 09/07/20 09/07/20 09/07/20 14:00 14:00 14:00 WBC RBC Hgb Hct MCHC RDW Lymph % (Auto) [place] % (Auto) Lymph # (Auto) [place] # (Auto) Seg Neutrophils % Seg Neuts % (Manual) Lymphocytes % (Manual) Monocytes % (Manual) Nucleated RBC % Seg Neutrophils # Seg Neutrophils # Man Lymphocytes # (Manual) Monocytes # (Manual) PT INR D-Dimer ABG pH POC ABG pCO2 POC ABG pO2 ABG pO2 ABG HCO3 ABG Base Excess ABG Hemoglobin ABG Oxyhemoglobin ABG Sodium ABG Potassium ABG Chloride ABG Glucose Carboxyhemoglobin Sodium Potassium Chloride Carbon Dioxide BUN Creatinine 1.8 H Glucose POC Glucose Lactic Acid Calcium Phosphorus Ferritin Total Bilirubin Direct Bilirubin AST 310 H ALT 339 H Lactate Dehydrogenase Total Creatine Kinase Troponin T Total Protein Albumin 3.6 L Triglycerides Arterial Blood Glucose Arterial Blood Ionized Calcium Urine pH Urine Creatinine Salicylates < 0.3 L Acetaminophen 5.0 L Coronavirus (PCR) 09/07/20 09/08/20 09/08/20 14:26 04:00 04:17 WBC RBC Hgb Hct MCHC RDW Lymph % (Auto) [place] % (Auto) Lymph # (Auto) [place] # (Auto) Seg Neutrophils % Seg Neuts % (Manual) Lymphocytes % (Manual) Monocytes % (Manual) Nucleated RBC % Seg Neutrophils # Seg Neutrophils # Man Lymphocytes # (Manual) Monocytes # (Manual) PT INR D-Dimer ABG pH 7.037 L 7.095 L POC ABG pCO2 92.4 H 68.0 H POC ABG pO2 130.8 H 43.5 L ABG pO2 ABG HCO3 ABG Base Excess ABG Hemoglobin 11.3 L 10.6 L ABG Oxyhemoglobin 70.8 L ABG Sodium ABG Potassium 7.0 H ABG Chloride 108.0 H ABG Glucose Carboxyhemoglobin 0.3 L Sodium Potassium 8.4 H* D Chloride Carbon Dioxide 17 L D BUN 38 H Creatinine 3.9 H D Glucose POC Glucose Lactic Acid Calcium 7.7 L D Phosphorus Ferritin Total Bilirubin Direct Bilirubin AST ALT Lactate Dehydrogenase Total Creatine Kinase Troponin T Total Protein Albumin Triglycerides Arterial Blood Glucose Arterial Blood Ionized Calcium 4.5 L Urine pH Urine Creatinine Salicylates Acetaminophen Coronavirus (PCR) 09/08/20 09/08/20 09/08/20 05:00 05:25 12:02 WBC RBC Hgb Hct MCHC RDW Lymph % (Auto) [place] % (Auto) Lymph # (Auto) [place] # (Auto) Seg Neutrophils % Seg Neuts % (Manual) Lymphocytes % (Manual) Monocytes % (Manual) Nucleated RBC % Seg Neutrophils # Seg Neutrophils # Man Lymphocytes # (Manual) Monocytes # (Manual) PT INR D-Dimer ABG pH 7.088 L POC ABG pCO2 69.1 H POC ABG pO2 35.2 L ABG pO2 ABG HCO3 ABG Base Excess ABG Hemoglobin 10.9 L ABG Oxyhemoglobin 57.1 L ABG Sodium ABG Potassium 7.0 H ABG Chloride 108.0 H ABG Glucose Carboxyhemoglobin 0.4 L Sodium Potassium 8.1 H* Chloride Carbon Dioxide 17 L BUN 38 H Creatinine 3.7 H Glucose POC Glucose Lactic Acid Calcium 8.0 L Phosphorus 8.00 H Ferritin Total Bilirubin Direct Bilirubin 0.5 H AST 3696 H ALT 3331 H Lactate Dehydrogenase Total Creatine Kinase Troponin T Total Protein Albumin 3.5 L Triglycerides Arterial Blood Glucose Arterial Blood Ionized Calcium 4.4 L Urine pH Urine Creatinine Salicylates Acetaminophen Coronavirus (PCR) 09/08/20 09/08/20 09/08/20 16:31 22:36 Unknown WBC RBC Hgb Hct MCHC RDW Lymph % (Auto) [place] % (Auto) Lymph # (Auto) [place] # (Auto) Seg Neutrophils % Seg Neuts % (Manual) Lymphocytes % (Manual) Monocytes % (Manual) Nucleated RBC % Seg Neutrophils # Seg Neutrophils # Man Lymphocytes # (Manual) Monocytes # (Manual) PT INR D-Dimer ABG pH POC ABG pCO2 POC ABG pO2 ABG pO2 ABG HCO3 ABG Base Excess ABG Hemoglobin ABG Oxyhemoglobin ABG Sodium ABG Potassium ABG Chloride ABG Glucose Carboxyhemoglobin Sodium Potassium 5.3 H D Chloride Carbon Dioxide BUN Creatinine Glucose POC Glucose 158 H Lactic Acid Calcium Phosphorus Ferritin Total Bilirubin Direct Bilirubin AST ALT Lactate Dehydrogenase Total Creatine Kinase Troponin T Total Protein Albumin Triglycerides Arterial Blood Glucose Arterial Blood Ionized Calcium Urine pH Urine Creatinine Salicylates Acetaminophen Coronavirus (PCR) Positive A 09/08/20 09/08/20 09/08/20 Unknown Unknown Unknown WBC 18.4 H RBC Hgb 10.1 L Hct 32.0 L MCHC RDW 18.2 H Lymph % (Auto) [place] % (Auto) Lymph # (Auto) [place] # (Auto) Seg Neutrophils % Seg Neuts % (Manual) 81.0 H Lymphocytes % (Manual) 2.0 L Monocytes % (Manual) Nucleated RBC % 1.0 H Seg Neutrophils # Seg Neutrophils # Man 14.9 H Lymphocytes # (Manual) 0.4 L Monocytes # (Manual) 1.1 H PT 21.2 H INR 1.83 H D-Dimer ABG pH POC ABG pCO2 POC ABG pO2 ABG pO2 ABG HCO3 ABG Base Excess ABG Hemoglobin ABG Oxyhemoglobin ABG Sodium ABG Potassium ABG Chloride ABG Glucose Carboxyhemoglobin Sodium Potassium Chloride Carbon Dioxide BUN Creatinine Glucose POC Glucose Lactic Acid Calcium Phosphorus Ferritin Total Bilirubin Direct Bilirubin AST ALT Lactate Dehydrogenase Total Creatine Kinase Troponin T Total Protein Albumin Triglycerides Arterial Blood Glucose Arterial Blood Ionized Calcium Urine pH Urine Creatinine 182.4 H Salicylates Acetaminophen Coronavirus (PCR) 09/09/20 09/09/20 09/09/20 03:14 04:20 04:20 WBC 16.3 H RBC 3.12 L Hgb 8.6 L Hct 26.8 L MCHC RDW 18.2 H Lymph % (Auto) 6.3 L [place] % (Auto) 8.8 H Lymph # (Auto) 1.0 L [place] # (Auto) 1.4 H Seg Neutrophils % 84.5 H Seg Neuts % (Manual) Lymphocytes % (Manual) Monocytes % (Manual) Nucleated RBC % Seg Neutrophils # 13.7 H Seg Neutrophils # Man Lymphocytes # (Manual) Monocytes # (Manual) PT INR D-Dimer ABG pH POC ABG pCO2 POC ABG pO2 148.5 H ABG pO2 ABG HCO3 ABG Base Excess ABG Hemoglobin 9.4 L ABG Oxyhemoglobin 98.8 H ABG Sodium 134.8 L ABG Potassium 5.0 H ABG Chloride ABG Glucose 222 H Carboxyhemoglobin 0.1 L Sodium Potassium 5.2 H Chloride Carbon Dioxide BUN 47 H Creatinine 4.3 H Glucose 211 H POC Glucose Lactic Acid Calcium 7.4 L Phosphorus Ferritin Total Bilirubin [place] AST 78889 H ALT 6206 H Lactate Dehydrogenase Total Creatine Kinase Troponin T Total Protein 5.6 L Albumin 3.0 L Triglycerides Arterial Blood Glucose 222 H Arterial Blood Ionized Calcium 3.8 L Urine pH Urine Creatinine Salicylates Acetaminophen Coronavirus (PCR) 09/09/20 09/09/20 09/09/20 10:00 12:23 18:22 WBC RBC Hgb Hct MCHC RDW Lymph % (Auto) [place] % (Auto) Lymph # (Auto) [place] # (Auto) Seg Neutrophils % Seg Neuts % (Manual) Lymphocytes % (Manual) Monocytes % (Manual) Nucleated RBC % Seg Neutrophils # Seg Neutrophils # Man Lymphocytes # (Manual) Monocytes # (Manual) PT 21.7 H INR 1.90 H D-Dimer ABG pH POC ABG pCO2 POC ABG pO2 ABG pO2 ABG HCO3 ABG Base Excess ABG Hemoglobin ABG Oxyhemoglobin ABG Sodium ABG Potassium ABG Chloride ABG Glucose Carboxyhemoglobin Sodium Potassium Chloride Carbon Dioxide BUN Creatinine Glucose POC Glucose 216 H 211 H Lactic Acid Calcium Phosphorus Ferritin Total Bilirubin Direct Bilirubin AST ALT Lactate Dehydrogenase Total Creatine Kinase Troponin T Total Protein Albumin Triglycerides Arterial Blood Glucose Arterial Blood Ionized Calcium Urine pH Urine Creatinine Salicylates Acetaminophen Coronavirus (PCR) 09/10/20 09/10/20 09/10/20 04:00 04:05 04:05 WBC 15.0 H RBC 3.06 L Hgb 8.6 L Hct 25.8 L MCHC RDW 18.0 H Lymph % (Auto) [place] % (Auto) Lymph # (Auto) [place] # (Auto) Seg Neutrophils % Seg Neuts % (Manual) 86.0 H Lymphocytes % (Manual) 6.0 L Monocytes % (Manual) 8.0 H Nucleated RBC % Seg Neutrophils # Seg Neutrophils # Man 12.9 H Lymphocytes # (Manual) 0.9 L Monocytes # (Manual) 1.2 H PT 18.4 H INR 1.54 H D-Dimer ABG pH POC ABG pCO2 POC ABG pO2 ABG pO2 ABG HCO3 ABG Base Excess ABG Hemoglobin ABG Oxyhemoglobin ABG Sodium ABG Potassium ABG Chloride ABG Glucose Carboxyhemoglobin Sodium 134 L Potassium Chloride 93.7 L Carbon Dioxide BUN 46 H Creatinine 3.6 H Glucose 275 H POC Glucose Lactic Acid Calcium 7.7 L Phosphorus Ferritin Total Bilirubin 1.30 H Direct Bilirubin AST 5899 H ALT 6440 H Lactate Dehydrogenase Total Creatine Kinase Troponin T Total Protein 5.9 L Albumin 3.3 L Triglycerides Arterial Blood Glucose Arterial Blood Ionized Calcium Urine pH Urine Creatinine Salicylates Acetaminophen Coronavirus (PCR) 09/10/20 09/10/20 09/10/20 04:35 12:06 17:42 WBC RBC Hgb Hct MCHC RDW Lymph % (Auto) [place] % (Auto) Lymph # (Auto) [place] # (Auto) Seg Neutrophils % Seg Neuts % (Manual) Lymphocytes % (Manual) Monocytes % (Manual) Nucleated RBC % Seg Neutrophils # Seg Neutrophils # Man Lymphocytes # (Manual) Monocytes # (Manual) PT INR D-Dimer ABG pH 7.464 H POC ABG pCO2 POC ABG pO2 ABG pO2 ABG HCO3 ABG Base Excess ABG Hemoglobin 9.9 L ABG Oxyhemoglobin ABG Sodium 131.6 L ABG Potassium ABG Chloride 97.0 L ABG Glucose 281 H Carboxyhemoglobin 0.1 L Sodium Potassium Chloride Carbon Dioxide BUN Creatinine Glucose POC Glucose 298 H 340 H Lactic Acid Calcium Phosphorus Ferritin Total Bilirubin Direct Bilirubin AST ALT Lactate Dehydrogenase Total Creatine Kinase Troponin T Total Protein Albumin Triglycerides Arterial Blood Glucose 281 H Arterial Blood Ionized Calcium 3.9 L Urine pH Urine Creatinine Salicylates Acetaminophen Coronavirus (PCR) 09/10/20 09/11/20 09/11/20 23:07 04:44 05:17 WBC RBC Hgb Hct MCHC RDW Lymph % (Auto) [place] % (Auto) Lymph # (Auto) [place] # (Auto) Seg Neutrophils % Seg Neuts % (Manual) Lymphocytes % (Manual) Monocytes % (Manual) Nucleated RBC % Seg Neutrophils # Seg Neutrophils # Man Lymphocytes # (Manual) Monocytes # (Manual) PT 16.9 H INR 1.39 H D-Dimer ABG pH POC ABG pCO2 POC ABG pO2 ABG pO2 ABG HCO3 ABG Base Excess ABG Hemoglobin ABG Oxyhemoglobin ABG Sodium ABG Potassium ABG Chloride ABG Glucose Carboxyhemoglobin Sodium Potassium Chloride Carbon Dioxide BUN Creatinine Glucose POC Glucose 367 H 416 H Lactic Acid Calcium Phosphorus Ferritin Total Bilirubin Direct Bilirubin AST ALT Lactate Dehydrogenase Total Creatine Kinase Troponin T Total Protein Albumin Triglycerides Arterial Blood Glucose Arterial Blood Ionized Calcium Urine pH Urine Creatinine Salicylates Acetaminophen Coronavirus (PCR) 09/11/20 09/11/20 09/11/20 05:40 12:01 17:50 WBC RBC Hgb Hct MCHC RDW Lymph % (Auto) [place] % (Auto) Lymph # (Auto) [place] # (Auto) Seg Neutrophils % Seg Neuts % (Manual) Lymphocytes % (Manual) Monocytes % (Manual) Nucleated RBC % Seg Neutrophils # Seg Neutrophils # Man Lymphocytes # (Manual) Monocytes # (Manual) PT INR D-Dimer ABG pH 7.543 H POC ABG pCO2 POC ABG pO2 ABG pO2 112.1 H ABG HCO3 28.1 H ABG Base Excess 5.4 H ABG Hemoglobin 8.4 L ABG Oxyhemoglobin ABG Sodium ABG Potassium ABG Chloride ABG Glucose Carboxyhemoglobin Sodium Potassium Chloride Carbon Dioxide BUN Creatinine Glucose POC Glucose 418 H 404 H Lactic Acid Calcium Phosphorus Ferritin Total Bilirubin Direct Bilirubin AST ALT Lactate Dehydrogenase Total Creatine Kinase Troponin T Total Protein Albumin Triglycerides Arterial Blood Glucose Arterial Blood Ionized Calcium Urine pH Urine Creatinine Salicylates Acetaminophen Coronavirus (PCR) 09/11/20 09/11/20 09/12/20 23:10 23:43 03:15 WBC RBC Hgb Hct MCHC RDW Lymph % (Auto) [place] % (Auto) Lymph # (Auto) [place] # (Auto) Seg Neutrophils % Seg Neuts % (Manual) Lymphocytes % (Manual) Monocytes % (Manual) Nucleated RBC % Seg Neutrophils # Seg Neutrophils # Man Lymphocytes # (Manual) Monocytes # (Manual) PT INR D-Dimer ABG pH POC ABG pCO2 POC ABG pO2 ABG pO2 ABG HCO3 ABG Base Excess ABG Hemoglobin ABG Oxyhemoglobin ABG Sodium ABG Potassium ABG Chloride ABG Glucose Carboxyhemoglobin Sodium 135 L Potassium Chloride 92.3 L Carbon Dioxide BUN 62 H Creatinine 3.7 H Glucose 406 H POC Glucose 372 H 359 H Lactic Acid Calcium Phosphorus Ferritin Total Bilirubin Direct Bilirubin AST 687 H ALT 3701 H Lactate Dehydrogenase Total Creatine Kinase Troponin T Total Protein 5.8 L Albumin 3.1 L Triglycerides Arterial Blood Glucose Arterial Blood Ionized Calcium Urine pH Urine Creatinine Salicylates Acetaminophen Coronavirus (PCR) 09/12/20 09/12/20 09/12/20 03:18 04:00 04:00 WBC 13.7 H RBC 3.30 L Hgb 9.3 L Hct 27.6 L MCHC RDW 17.5 H Lymph % (Auto) [place] % (Auto) Lymph # (Auto) [place] # (Auto) Seg Neutrophils % Seg Neuts % (Manual) 76.0 H Lymphocytes % (Manual) 11.0 L Monocytes % (Manual) 13.0 H Nucleated RBC % Seg Neutrophils # Seg Neutrophils # Man 10.4 H Lymphocytes # (Manual) Monocytes # (Manual) 1.8 H PT 16.1 H INR 1.31 H D-Dimer ABG pH 7.558 H POC ABG pCO2 POC ABG pO2 74.7 L ABG pO2 ABG HCO3 ABG Base Excess ABG Hemoglobin 9.7 L ABG Oxyhemoglobin ABG Sodium 132.4 L ABG Potassium ABG Chloride 95.0 L ABG Glucose 437 H Carboxyhemoglobin Sodium Potassium Chloride Carbon Dioxide BUN Creatinine Glucose POC Glucose Lactic Acid Calcium Phosphorus Ferritin Total Bilirubin Direct Bilirubin AST ALT Lactate Dehydrogenase Total Creatine Kinase Troponin T Total Protein Albumin Triglycerides Arterial Blood Glucose 437 H Arterial Blood Ionized Calcium 4.3 L Urine pH Urine Creatinine Salicylates Acetaminophen Coronavirus (PCR) 09/12/20 09/12/20 09/12/20 04:21 05:20 06:37 WBC RBC Hgb Hct MCHC RDW Lymph % (Auto) [place] % (Auto) Lymph # (Auto) [place] # (Auto) Seg Neutrophils % Seg Neuts % (Manual) Lymphocytes % (Manual) Monocytes % (Manual) Nucleated RBC % Seg Neutrophils # Seg Neutrophils # Man Lymphocytes # (Manual) Monocytes # (Manual) PT INR D-Dimer ABG pH POC ABG pCO2 POC ABG pO2 ABG pO2 ABG HCO3 ABG Base Excess ABG Hemoglobin ABG Oxyhemoglobin ABG Sodium ABG Potassium ABG Chloride ABG Glucose Carboxyhemoglobin Sodium Potassium Chloride Carbon Dioxide BUN Creatinine Glucose POC Glucose 417 H 397 H 370 H Lactic Acid Calcium Phosphorus Ferritin Total Bilirubin Direct Bilirubin AST ALT Lactate Dehydrogenase Total Creatine Kinase Troponin T Total Protein Albumin Triglycerides Arterial Blood Glucose Arterial Blood Ionized Calcium Urine pH Urine Creatinine Salicylates Acetaminophen Coronavirus (PCR) 09/12/20 09/12/20 09/12/20 11:56 17:14 Unknown WBC RBC Hgb Hct MCHC RDW Lymph % (Auto) [place] % (Auto) Lymph # (Auto) [place] # (Auto) Seg Neutrophils % Seg Neuts % (Manual) Lymphocytes % (Manual) Monocytes % (Manual) Nucleated RBC % Seg Neutrophils # Seg Neutrophils # Man Lymphocytes # (Manual) Monocytes # (Manual) PT INR D-Dimer ABG pH POC ABG pCO2 POC ABG pO2 ABG pO2 ABG HCO3 ABG Base Excess ABG Hemoglobin ABG Oxyhemoglobin ABG Sodium ABG Potassium ABG Chloride ABG Glucose Carboxyhemoglobin Sodium Potassium Chloride Carbon Dioxide BUN Creatinine Glucose POC Glucose 341 H 325 H Lactic Acid Calcium Phosphorus Ferritin Total Bilirubin Direct Bilirubin AST ALT Lactate Dehydrogenase Total Creatine Kinase Troponin T Total Protein Albumin Triglycerides 220 H Arterial Blood Glucose Arterial Blood Ionized Calcium Urine pH Urine Creatinine Salicylates Acetaminophen Coronavirus (PCR) 09/12/20 Unknown WBC RBC Hgb Hct MCHC RDW Lymph % (Auto) [place] % (Auto) Lymph # (Auto) [place] # (Auto) Seg Neutrophils % Seg Neuts % (Manual) Lymphocytes % (Manual) Monocytes % (Manual) Nucleated RBC % Seg Neutrophils # Seg Neutrophils # Man Lymphocytes # (Manual) Monocytes # (Manual) PT INR D-Dimer ABG pH POC ABG pCO2 POC ABG pO2 ABG pO2 ABG HCO3 ABG Base Excess ABG Hemoglobin ABG Oxyhemoglobin ABG Sodium ABG Potassium ABG Chloride ABG Glucose Carboxyhemoglobin Sodium 135 L Potassium Chloride 92.2 L Carbon Dioxide BUN 65 H Creatinine 3.5 H Glucose 418 H POC Glucose Lactic Acid Calcium Phosphorus Ferritin Total Bilirubin Direct Bilirubin AST 553 H ALT 3453 H Lactate Dehydrogenase Total Creatine Kinase Troponin T Total Protein 5.9 L Albumin 3.0 L Triglycerides Arterial Blood Glucose Arterial Blood Ionized Calcium Urine pH Urine Creatinine Salicylates Acetaminophen Coronavirus (PCR) Assessment and Plan 1. The patient is currently comatose - Day 5. 2. CT Brain - abnormal ( ? Swelling ) . 3. EEG reviewed - low voltage delta activity . With no significant improvement in the last 5 days Neurologically , CT Brain abnormal and EEG abnormal , the neurological prognosis is very guarded . Chances of Meaning ful [id number] recovery less likely . I will discuss the issue and findings with family . Dr. Manrique
[2020-09-12] MEDS ORDERED: cefTRIAXone/NS 2 GM/100 ML 2 GM/100 ML BAG IV SCH (18:00)
[2020-09-12] MEDS: cefTRIAXone/NS 2 GM/100 ML 2 GM/100 ML BAG IV SCH (18:08)
[2020-09-12] MEDS: AZITHROMYCIN/NS 500 MG/250 ML 500 MG/250 ML BAG IV SCH (18:09)
--- NOTE | 2020-09-12 19:02 | Progress Note ---
Assessment and Plan Impression: * Nonoliguric RYAN secondary to ATN * Severe hyperkalemia - resolved * COVID 19 PNA * s/p OOH cardiac arrest * Acute hypoxic respiratory failure * Seizure activity * Anemia Plan: * Patient is s/p emergent HD on Friday (hyperK) and Friday * UOP 3.2L * Labs ordered yesterday, not yet collected * Please check labs daily * Strict I/O * No acute indication for hemodialysis at this time - UOP good * Will reassess need for hemodialysis daily * Keep MAP > 65 * Vent management per CCM * Steroids per primary team/ID * Dose medications for renal function * Avoid potential nephrotoxins * Prognosis is guarded Subjective Date of service: 09/12/20 Principal diagnosis: Abnormal LFTs, s/p cardiac arrest, acute kidney injury with ATN Interval history: UOP 3.2 L Patient followed for his renal issues Nursing, interdisciplinary and consult notes were reviewed Vitals, input and output, medications and labs were reviewed Objective - Exam Narrative Exam: Deferred for PPE conservation and to prevent spread of infection - Vital Signs Vital signs: Vital Signs - 12hr 09/12/20 09/12/20 09/12/20 07:11 07:21 07:31 Temperature Pulse Rate 54 L 53 L 61 Respiratory 25 H 18 27 H Rate Blood Pressure 109/42 109/42 118/49 O2 Sat by Pulse 99 99 100 Oximetry 09/12/20 09/12/20 09/12/20 07:41 07:51 08:00 Temperature 97.5 F L Pulse Rate 53 L 51 L 52 L Respiratory 30 H 22 26 H Rate Blood Pressure 118/49 118/49 115/46 O2 Sat by Pulse 100 99 99 Oximetry 09/12/20 09/12/20 09/12/20 08:11 08:21 08:31 Temperature Pulse Rate 53 L 52 L 51 L Respiratory 30 H 30 H 30 H Rate Blood Pressure 115/46 115/46 115/46 O2 Sat by Pulse 100 99 100 Oximetry 09/12/20 09/12/20 09/12/20 08:39 08:41 08:51 Temperature Pulse Rate 54 L 50 L 47 L Respiratory 30 H 29 H Rate Blood Pressure 115/46 115/46 O2 Sat by Pulse 100 99 99 Oximetry 09/12/20 09/12/20 09/12/20 09:01 09:11 09:21 Temperature Pulse Rate 46 L 49 L 50 L Respiratory 30 H 30 H 30 H Rate Blood Pressure 115/46 115/46 115/46 O2 Sat by Pulse 99 99 98 Oximetry 09/12/20 09/12/20 09/12/20 09:31 09:41 09:51 Temperature Pulse Rate 50 L 50 L 50 L Respiratory 30 H 30 H 29 H Rate Blood Pressure 115/46 115/46 115/46 O2 Sat by Pulse 99 98 99 Oximetry 09/12/20 09/12/20 09/12/20 10:00 10:11 10:21 Temperature Pulse Rate 50 L 53 L 49 L Respiratory 30 H 30 H 30 H Rate Blood Pressure 175/74 135/56 135/56 O2 Sat by Pulse 99 99 100 Oximetry 09/12/20 09/12/20 09/12/20 10:31 10:41 10:51 Temperature Pulse Rate 50 L 50 L 49 L Respiratory 30 H 30 H 30 H Rate Blood Pressure 139/57 139/57 139/57 O2 Sat by Pulse 99 99 99 Oximetry 09/12/20 09/12/20 09/12/20 11:01 11:11 11:21 Temperature Pulse Rate 50 L 49 L 49 L Respiratory 30 H 30 H 30 H Rate Blood Pressure 136/57 136/57 136/57 O2 Sat by Pulse 99 99 99 Oximetry 09/12/20 09/12/20 09/12/20 11:31 11:41 11:51 Temperature Pulse Rate 49 L 52 L 51 L Respiratory 30 H 30 H 30 H Rate Blood Pressure 135/59 135/59 135/59 O2 Sat by Pulse 99 99 100 Oximetry 09/12/20 09/12/20 09/12/20 12:00 12:01 12:11 Temperature 98.3 F Pulse Rate 53 L 53 L 50 L Respiratory 30 H 26 H Rate Blood Pressure 137/55 137/55 O2 Sat by Pulse 100 99 Oximetry 09/12/20 09/12/20 09/12/20 12:13 12:21 12:31 Temperature Pulse Rate 50 L 51 L 50 L Respiratory 29 H 22 Rate Blood Pressure 137/55 137/55 127/53 O2 Sat by Pulse 98 98 99 Oximetry 09/12/20 09/12/20 09/12/20 12:41 12:51 13:01 Temperature Pulse Rate 50 L 52 L 51 L Respiratory 30 H 30 H 30 H Rate Blood Pressure 127/53 127/53 130/51 O2 Sat by Pulse 98 98 99 Oximetry 09/12/20 09/12/20 09/12/20 13:11 13:21 13:30 Temperature Pulse Rate 49 L 55 L 56 L Respiratory 30 H 30 H 30 H Rate Blood Pressure 130/51 130/51 130/51 O2 Sat by Pulse 98 98 97 Oximetry 09/12/20 09/12/20 09/12/20 13:41 13:51 14:01 Temperature Pulse Rate 58 L 59 L 58 L Respiratory 23 19 30 H Rate Blood Pressure 124/52 124/52 127/59 O2 Sat by Pulse 97 98 99 Oximetry 09/12/20 09/12/20 09/12/20 14:11 14:21 14:30 Temperature Pulse Rate 60 54 L 55 L Respiratory 30 H 30 H 30 H Rate Blood Pressure 130/51 130/51 130/51 O2 Sat by Pulse 99 99 99 Oximetry 09/12/20 09/12/20 09/12/20 14:41 14:51 15:01 Temperature Pulse Rate 54 L 53 L 55 L Respiratory 27 H 23 30 H Rate Blood Pressure 127/59 127/59 122/46 O2 Sat by Pulse 99 99 100 Oximetry 09/12/20 09/12/20 09/12/20 15:11 15:21 15:31 Temperature Pulse Rate 50 L 55 L 52 L Respiratory 30 H 30 H 30 H Rate Blood Pressure 121/52 121/52 120/50 O2 Sat by Pulse 99 99 100 Oximetry 09/12/20 09/12/20 09/12/20 15:41 15:51 16:00 Temperature 97.4 F L Pulse Rate 52 L 55 L 51 L Respiratory 28 H 30 H Rate Blood Pressure 120/50 120/50 O2 Sat by Pulse 99 99 Oximetry 09/12/20 09/12/20 09/12/20 16:01 16:11 16:21 Temperature Pulse Rate 52 L 52 L 57 L Respiratory 30 H 30 H 30 H Rate Blood Pressure 118/51 118/51 118/51 O2 Sat by Pulse 100 99 99 Oximetry 09/12/20 09/12/20 09/12/20 16:31 16:41 16:51 Temperature Pulse Rate 53 L 55 L 54 L Respiratory 30 H 30 H 30 H Rate Blood Pressure 126/53 126/53 126/53 O2 Sat by Pulse 100 99 99 Oximetry 09/12/20 09/12/20 09/12/20 17:01 17:03 17:11 Temperature Pulse Rate 55 L 55 L 57 L Respiratory 30 H 23 Rate Blood Pressure 135/67 135/67 135/67 O2 Sat by Pulse 100 98 98 Oximetry 09/12/20 09/12/20 09/12/20 17:21 17:31 17:41 Temperature Pulse Rate 55 L 59 L 67 Respiratory 30 H 20 22 Rate Blood Pressure 135/67 121/54 121/54 O2 Sat by Pulse 98 99 96 Oximetry 09/12/20 09/12/20 09/12/20 17:51 18:01 18:11 Temperature Pulse Rate 66 78 69 Respiratory 16 24 28 H Rate Blood Pressure 121/54 121/54 126/71 O2 Sat by Pulse 97 96 98 Oximetry 09/12/20 09/12/20 18:21 18:31 Temperature Pulse Rate 64 62 Respiratory 30 H 30 H Rate Blood Pressure 121/54 121/55 O2 Sat by Pulse 97 100 Oximetry - Lab 09/12/20 04:00 09/12/20 Unknown Most recent lab results ABG pH 7.558 (7.320-7.450) H 09/12/20 03:18 ABG pCO2 33.4 mm Hg 09/11/20 05:40 ABG pO2 112.1 mm Hg (80.0-90.0) H 09/11/20 05:40 ABG HCO3 28.1 mmol/L (20.0-26.0) H 09/11/20 05:40 ABG O2 Saturation 98.4 % (95.0-99.0) 09/11/20 05:40 Calcium 8.7 mg/dL (8.4-10.2) 09/12/20 Unknown Phosphorus 8.00 mg/dL (2.5-4.5) H 09/08/20 12:02 Magnesium 1.80 mg/dL (1.7-2.3) 09/08/20 12:02 Urine Creatinine 182.4 mg/dL (0.1-20.0) H 09/08/20 Unknown Urine Sodium 40 mmol/L 09/08/20 Unknown Medications & Allergies - Medications Allergies/Adverse Reactions: Allergies Unable to Assess Allergy (Verified 09/07/20 13:43) intubated Home Medications: Home Medications Medication Instructions Recorded Confirmed Last Taken Type Albuterol Sulfate 60 mcg IH PRN 09/11/20 09/11/20 Unknown History Cholecalciferol (Vitamin D3) 25 tab PO DAILY 09/11/20 09/11/20 Unknown History Cozaar 25 tab PO DAILY 09/11/20 09/11/20 Unknown History HumaLOG 14 unit SQ AC 09/11/20 09/11/20 Unknown History Hydralazine HCl 50 tab PO TID 09/11/20 09/11/20 Unknown History Isosorbide Dinitrate 30 mg PO DAILY 09/11/20 09/11/20 Unknown History Lantus VIAL 54 units SQ HS 09/11/20 09/11/20 Unknown History Lasix 20 tab PO DAILY 09/11/20 09/11/20 Unknown History Nifedipine 30 tab PO DAILY 09/11/20 09/11/20 Unknown History Active Medications: Generic Name Dose Route Start Last Admin Trade Name Freq PRN Reason Stop Dose Admin Acetaminophen 400 mg 09/10/20 20:50 09/10/20 21:42 Acetaminophen 325 Mg/10.15 Ml Oral Liqd Unit Dose PO 400 mg Q4HR PRN Administration Non Cardiac Pain or Temp>100.5 Lipase/Protease/Amylase 1 each 09/09/20 09:40 Lipase 10,500/Protease 25,000/Amylase 43,750 (Units) Dr Cap FEEDTUBE PRN PRN For Clogged Feeding Tube Fentanyl 50 mcg 09/07/20 13:08 09/07/20 19:26 Fentanyl 100 Mcg/2 Ml Inj IV 50 mcg Q10MIN PRN Administration ANALGESIA Hydrophilic Ointment 1 applic 09/07/20 13:08 Lip Therapy Vaseline TP Q2HR PRN Dry Lips Norepinephrine 4 mg in 250 mls @ 7.5 mls/hr 09/08/20 01:30 09/08/20 12:00 Levophed Drip 4 Mg/Ns 250 Ml IV 0 mcg/min TITR TAYLOR 0 mls/hr Titration Protocol 2 MCG/MIN Lorazepam 100 mg/ Sodium 100 mls @ 1 mls/hr 09/08/20 04:00 09/12/20 17:22 Chloride/ Miscellaneous IV 0 mg/hr Information TITR TAYLOR 0 mls/hr Titration Protocol 1 MG/HR Vasopressin 20 unit/ Sodium 101 mls @ 9.09 mls/hr 09/08/20 06:00 09/08/20 08:43 Chloride IV 0 units/min TITR TAYLOR 0 mls/hr Titration Protocol 0.03 UNITS/MIN Propofol 1,000 mg in 100 mls @ 4.995 mls/hr 09/08/20 20:00 09/12/20 18:09 Diprivan 10 Mg/Ml IV 20 mcg/kg/min TITR TAYLOR 19.98 mls/hr Administration Protocol 5 MCG/KG/MIN Sodium Chloride 100 mls @ 999 mls/hr 09/09/20 13:36 Nacl 0.9% IV JAYJAY PRN Hypotension Levetiracetam 1,500 mg/ 115 mls @ 400 mls/hr 09/11/20 10:00 09/12/20 09:46 Dextrose IV 400 mls/hr BID TAYLOR Administration Ceftriaxone Sodium 2 gm in 100 mls @ 200 mls/hr 09/12/20 18:00 Rocephin/Ns 2 Gm/100 Ml IV 09/12/20 19:30 ONCE TAYLOR Protocol Insulin Glargine 20 units 09/12/20 22:00 Insulin Glargine 100 Units/Ml SUB-Q BID TAYLOR Insulin Human Lispro 0 unit 09/12/20 12:00 09/12/20 18:08 Insulin Lispro 100 Unit/Ml SUB-Q 8 unit Q6HR TAYLOR Administration Protocol Lansoprazole 30 mg 09/11/20 11:00 09/12/20 09:47 Lansoprazole 30 Mg Solutab FEEDTUBE 30 mg BID TAYLOR Administration Lorazepam 2 mg 09/08/20 00:14 09/10/20 16:04 Lorazepam 2 Mg/Ml Vial IV 2 mg Q4H PRN Administration Seizures Lorazepam 2 mg 09/08/20 03:55 09/11/20 04:13 Lorazepam 2 Mg/Ml Vial IV 2 mg Q10MIN PRN Administration Agitation Multi-Ingred Cream/Lotion/Oil/Oint 1 applic 09/07/20 13:08 Mineral Oil/Petrolatum, White Ophth Oint 3.5 Gm OU Q4HR PRN Dry Eye(s) Multivitamins 5 ml 09/09/20 12:00 09/12/20 09:47 Multivitamins 5 Ml Oral Liquid PO 5 ml QDAY TAYLOR Administration Ondansetron HCl 4 mg 09/07/20 17:55 Ondansetron 4 Mg/2 Ml Inj IV Q8H PRN Nausea And Vomiting Simple Syrup 15 ml 09/09/20 09:40 Simple Syrup 15 Ml FEEDTUBE PRN PRN Hypoglycemia Simple Syrup 30 ml 09/09/20 09:40 Simple Syrup 15 Ml FEEDTUBE PRN PRN Hypoglycemia Sodium Bicarbonate 325 mg 09/09/20 09:40 Sodium Bicarbonate 325 Mg Tab FEEDTUBE PRN PRN For Clogged Feeding Tube Sodium Chloride 10 ml 09/07/20 22:00 09/12/20 09:47 Sodium Chloride 0.9% 10 Ml Flush Syringe IV 10 ml BID TAYLOR Administration Sodium Chloride 10 ml 09/07/20 17:55 Sodium Chloride 0.9% 10 Ml Flush Syringe IV PRN PRN LINE FLUSH
[2020-09-12] MEDS: INSULIN GLARGINE 100 UNITS/ML SUB-Q SCH (22:14)
[2020-09-13] MEDS: INSULIN LISPRO 100 UNIT/ML SUB-Q SCH ×5 (00:15→23:45)
--- NOTE | 2020-09-13 02:55 | XRay Report ---
CHEST 1 VIEW 2:15 AM INDICATION / CLINICAL INFORMATION: Follow-up respiratory failure. COMPARISON: Yesterday. FINDINGS: SUPPORT DEVICES: The positions of the endotracheal and nasogastric tubes have not changed. HEART / MEDIASTINUM: Unchanged. LUNGS / PLEURA: Pleuroparenchymal opacity in the right mid to lower hemithorax and left retrocardiac opacity are similar to the prior study. No new abnormality is seen. No pneumothorax. ADDITIONAL FINDINGS: No significant additional findings. IMPRESSION: No significant change since yesterday. Signer Name: Florentin Iqbal MD Signed: 09/13/2020 2:51 AM Workstation Name: [id number]
--- NOTE | 2020-09-13 08:42 | Progress Note ---
Assessment and Plan Critical care statement The high probability OF a clinically significant sudden or life-threatening deterioration of the cardiorespiratory system and endocrine system required my full and direct attention, intervention and postoperative management. The aggregate critical care time was 35 minutes. The time is in addition to time spent performing reported procedures but includes the followin: Data review and interpretation 2: Patient assessment and monitoring of vital signs 3: Documentation 4:: Medication orders and management Assessment and Plan - Patient Problems --Cardiac arrest Current Visit: Yes Status: Acute Plan to address problem: Patient currently intubated and sedated. Admitted into the intensive care unit. Co Founder has been consulted for evaluation. Acute kidney injury Secondary to ATN-patient getting emergent hemodialysis because of the creatinine and high potassium Hemodialysis as per nephrology Seizure disorder EEG requested Keppra increased to 1500 mg twice daily --Respiratory acidosis Current Visit: Yes Status: Acute Plan to address problem: Secondary to the underlying pneumonia. Will monitor ABG. Patient intubated and weaning in progress --Hyperkalemia Treat High K Emergent HD per Nephrology Hyperkalemia resolved --Coronavirus infection Current Visit: Yes Status: Acute Plan to address problem: Patient placed on isolation precautions. He has been started on empiric IV antibiotics. Patient on IV Decadron No remdesivir because of the kidney injury and the liver injury --Transaminitis Current Visit: Yes Status: Acute Plan to address problem: Possibly secondary to ischemic liver injury Also possible the Covid infection is caused the transaminitis No Tylenol as needed Low-dose ibuprofen if necessary for temperature more than 100 Today CMP is pending. --Morbid obesity Current Visit: Yes Status: Acute Plan to address problem: Patient has poor prognosis --DVT prophylaxis Current Visit: Yes Status: Acute Plan to address problem: Patient placed on subcutaneous Lovenox. --Full code status Current Visit: Yes Status: Acute Plan to address problem: Patient is a full code. Critical care time spent is 35 minutes Subjective Date of service: 09/12/20 Principal diagnosis: Abnormal LFTs, s/p cardiac arrest, acute kidney injury with ATN Interval history: 65-year-old male brought into the emergency room today by EMS for cardiopulmonary arrest. Patient was said to be awaiting a Covid test when he was said to have passed out. CPR was started and also patient was defibrillated once. CPR was continued on the field by EMS and patient had a spontaneous return of circulation. Upon arrival in the emergency room patient had been receiving bag valve mask ventilation through a Dayron airway. He was tachycardic and was subsequently intubated in the emergency room. Most of the history was obtained from the ER staff as patient is already intubated. Work-up in the emergency room today chest x-ray reveals:Bilateral airspace disease which could be related to alveolar edema or infection. CT scan of the head was unremarkable. Patient could not had a CT angiogram because of his size. Patient is being admitted for cardiopulmonary arrest and also possible Covid pneumonia. Day #2 Patient intubated Patient has high transaminitis status. S/p cardiac arrest ACLS and return of spontaneous circulation Hypoxic brain injury in the differential Covid pneumonia Day #3 Patient intubated Unresponsive S/p cardiac arrest Transaminitis-severe Covid pneumonia Day #4 Patient having seizures Patient is intubated Severe transaminitis Covid pneumonia Possible hypoxic brain injury ATN Day #5-09/11/2020 Patient intubated Seizure activity is better EEG requested Weaning in progress Day #6 09/12/2020 Neurology consult requested Less seizures Objective - Exam Narrative Exam: Patient is intubated - Constitutional Vitals: Vital Signs - 12hr 09/12/20 09/12/20 09/12/20 20:51 21:01 21:11 Temperature Pulse Rate 55 L 59 L 57 L Respiratory 30 H 30 H 30 H Rate Blood Pressure 116/50 119/54 119/54 O2 Sat by Pulse 98 Oximetry 09/12/20 09/12/20 09/12/20 21:21 21:31 21:41 Temperature Pulse Rate 59 L 59 L 56 L Respiratory 30 H 30 H 30 H Rate Blood Pressure 119/54 119/53 119/53 O2 Sat by Pulse Oximetry 09/12/20 09/12/20 09/12/20 21:51 22:01 22:11 Temperature Pulse Rate 60 57 L 55 L Respiratory 30 H 30 H 30 H Rate Blood Pressure 119/53 119/51 119/51 O2 Sat by Pulse Oximetry 09/12/20 09/12/20 09/12/20 22:15 22:21 22:31 Temperature Pulse Rate 54 L 59 L 60 Respiratory 31 H 30 H Rate Blood Pressure 119/51 122/58 O2 Sat by Pulse Oximetry 09/12/20 09/12/20 09/12/20 22:41 22:51 23:01 Temperature Pulse Rate 57 L 56 L 56 L Respiratory 30 H 30 H 30 H Rate Blood Pressure 122/58 122/58 128/54 O2 Sat by Pulse 91 Oximetry 09/12/20 09/12/20 09/12/20 23:11 23:12 23:21 Temperature Pulse Rate 61 54 L 55 L Respiratory 30 H 30 H Rate Blood Pressure 128/54 128/54 128/54 O2 Sat by Pulse 85 99 97 Oximetry 09/12/20 09/12/20 09/12/20 23:31 23:41 23:51 Temperature Pulse Rate 57 L 57 L 58 L Respiratory 30 H 30 H 30 H Rate Blood Pressure 126/55 126/55 126/55 O2 Sat by Pulse 96 98 98 Oximetry 09/13/20 09/13/20 09/13/20 00:00 00:01 00:11 Temperature 98.6 F Pulse Rate 57 L 59 L Respiratory 30 H 30 H Rate Blood Pressure 121/58 121/58 O2 Sat by Pulse 96 98 Oximetry 09/13/20 09/13/20 09/13/20 00:15 00:21 00:31 Temperature 98.9 F Pulse Rate 57 L 58 L 59 L Respiratory 30 H 30 H 30 H Rate Blood Pressure 121/58 121/58 125/59 O2 Sat by Pulse 96 98 96 Oximetry 09/13/20 09/13/20 09/13/20 00:41 00:51 01:01 Temperature Pulse Rate 58 L 58 L 58 L Respiratory 30 H 30 H 30 H Rate Blood Pressure 125/59 125/59 116/56 O2 Sat by Pulse 98 98 95 Oximetry 09/13/20 09/13/20 09/13/20 01:11 01:21 01:31 Temperature Pulse Rate 58 L 56 L 61 Respiratory 30 H 30 H 30 H Rate Blood Pressure 116/56 116/56 126/53 O2 Sat by Pulse 98 98 96 Oximetry 09/13/20 09/13/20 09/13/20 01:41 01:51 02:01 Temperature Pulse Rate 58 L 64 66 Respiratory 30 H 30 H 30 H Rate Blood Pressure 126/53 126/53 119/48 O2 Sat by Pulse 98 98 96 Oximetry 09/13/20 09/13/20 09/13/20 02:11 02:15 02:21 Temperature Pulse Rate 60 60 Respiratory 30 H 30 H 30 H Rate Blood Pressure 119/48 119/48 O2 Sat by Pulse 98 96 98 Oximetry 09/13/20 09/13/20 09/13/20 02:31 02:41 02:51 Temperature Pulse Rate 60 59 L 58 L Respiratory 30 H 30 H 30 H Rate Blood Pressure 124/47 124/47 124/47 O2 Sat by Pulse 96 98 98 Oximetry 09/13/20 09/13/20 09/13/20 03:01 03:11 03:21 Temperature Pulse Rate 58 L 57 L 57 L Respiratory 30 H 30 H 30 H Rate Blood Pressure 110/49 110/49 110/49 O2 Sat by Pulse 97 98 98 Oximetry 09/13/20 09/13/20 09/13/20 03:30 03:41 03:51 Temperature Pulse Rate 59 L 56 L 56 L Respiratory 30 H 30 H 30 H Rate Blood Pressure 117/55 117/55 117/55 O2 Sat by Pulse 96 98 98 Oximetry 09/13/20 09/13/20 09/13/20 04:00 04:01 04:11 Temperature 98.8 F Pulse Rate 55 L 55 L Respiratory 30 H 30 H Rate Blood Pressure 116/53 116/53 O2 Sat by Pulse 96 98 Oximetry 09/13/20 09/13/20 09/13/20 04:21 04:30 04:40 Temperature Pulse Rate 55 L 64 58 L Respiratory 30 H 14 30 H Rate Blood Pressure 116/53 116/53 120/50 O2 Sat by Pulse 97 95 96 Oximetry 09/13/20 09/13/20 09/13/20 04:44 04:50 05:01 Temperature Pulse Rate 59 L 59 L 58 L Respiratory 30 H 30 H Rate Blood Pressure 120/50 120/50 115/49 O2 Sat by Pulse 96 96 95 Oximetry 09/13/20 09/13/20 09/13/20 05:11 05:15 05:21 Temperature Pulse Rate 58 L 59 L 65 Respiratory 30 H 30 H 30 H Rate Blood Pressure 120/50 120/50 O2 Sat by Pulse 97 96 96 Oximetry 09/13/20 09/13/20 09/13/20 05:31 05:41 05:51 Temperature Pulse Rate 60 57 L 59 L Respiratory 30 H 30 H 30 H Rate Blood Pressure 126/55 126/55 126/55 O2 Sat by Pulse 94 97 97 Oximetry 02/10/2909/13/20 09/13/20 06:01 06:11 06:21 Temperature Pulse Rate 58 L 58 L 57 L Respiratory 30 H 30 H 30 H Rate Blood Pressure 127/52 127/52 127/52 O2 Sat by Pulse 95 97 97 Oximetry 09/13/20 09/13/20 09/13/20 06:31 06:41 06:51 Temperature Pulse Rate 59 L 57 L 57 L Respiratory 30 H 30 H 30 H Rate Blood Pressure 121/53 121/53 121/53 O2 Sat by Pulse 95 98 97 Oximetry 09/13/20 09/13/20 09/13/20 07:00 07:11 07:21 Temperature Pulse Rate 57 L 57 L 56 L Respiratory 30 H 30 H 30 H Rate Blood Pressure 123/60 123/60 123/60 O2 Sat by Pulse 95 98 98 Oximetry 09/13/20 09/13/20 09/13/20 07:31 07:41 07:51 Temperature Pulse Rate 58 L 56 L 56 L Respiratory 30 H 30 H 30 H Rate Blood Pressure 125/57 125/57 125/57 O2 Sat by Pulse 95 98 98 Oximetry 09/13/20 09/13/20 09/13/20 08:00 08:01 08:11 Temperature Pulse Rate 58 L 56 L 56 L Respiratory 30 H 30 H Rate Blood Pressure 125/57 117/55 117/55 O2 Sat by Pulse 95 96 98 Oximetry General appearance: Present: no acute distress, well-nourished - EENT Eyes: PERRL, EOM intact ENT: hearing intact, clear oral mucosa Ears: bilateral: normal - Neck Neck: supple, normal ROM - Respiratory Respiratory effort: normal Respiratory: bilateral: CTA - Breasts Breasts: normal - Cardiovascular Heart rate: 88 Rhythm: regular Heart Sounds: Present: S1 & S2. Absent: gallop, rub Extremities: pulses intact, No edema, normal color, Full ROM - Gastrointestinal General gastrointestinal: Present: soft, non-tender, non-distended, normal bowel sounds - Genitourinary Male genitourinary: normal - Integumentary Integumentary: clear, warm, dry - Musculoskeletal Musculoskeletal: strength equal bilaterally, generalized weakness - Psychiatric Psychiatric: other - Labs CBC & Chem 7: 09/12/20 04:00 09/13/20 10:50 Labs: Abnormal lab results 09/11/20 09/12/20 09/12/20 Range/Units 23:43 03:15 04:21 ABG pH (7.320-7.450) POC ABG pO2 (83-108) mmHg ABG Hemoglobin (12.0-17.5) ABG Oxyhemoglobin (94-98) ABG Sodium (136.0-145.0) mmol/L ABG Glucose (65-95) mg/dL Carboxyhemoglobin (0.5-1.5) POC Glucose 372 H 359 H 417 H (70-105) mg/dL Arterial Blood Glucose (65-95) mg/dL 09/12/20 09/12/20 09/12/20 Range/Units 05:20 06:37 11:56 ABG pH (7.320-7.450) POC ABG pO2 (83-108) mmHg ABG Hemoglobin (12.0-17.5) ABG Oxyhemoglobin (94-98) ABG Sodium (136.0-145.0) mmol/L ABG Glucose (65-95) mg/dL Carboxyhemoglobin (0.5-1.5) POC Glucose 397 H 370 H 341 H (70-105) mg/dL Arterial Blood Glucose (65-95) mg/dL 09/12/20 09/12/20 09/12/20 Range/Units 17:14 21:52 23:39 ABG pH (7.320-7.450) POC ABG pO2 (83-108) mmHg ABG Hemoglobin (12.0-17.5) ABG Oxyhemoglobin (94-98) ABG Sodium (136.0-145.0) mmol/L ABG Glucose (65-95) mg/dL Carboxyhemoglobin (0.5-1.5) POC Glucose 325 H 285 H 338 H (70-105) mg/dL Arterial Blood Glucose (65-95) mg/dL 09/13/20 09/13/20 Range/Units 04:47 05:24 ABG pH 7.571 H (7.320-7.450) POC ABG pO2 69.0 L (83-108) mmHg ABG Hemoglobin 10.1 L (12.0-17.5) ABG Oxyhemoglobin 93.2 L (94-98) ABG Sodium 134.0 L (136.0-145.0) mmol/L ABG Glucose 365 H (65-95) mg/dL Carboxyhemoglobin 0.4 L (0.5-1.5) POC Glucose 329 H (70-105) mg/dL Arterial Blood Glucose 365 H (65-95) mg/dL HEART Score - HEART Score Troponin: Troponin T 0.076 ng/mL (0.00-0.029) H 09/07/20 14:00
[2020-09-13] MEDS: INSULIN GLARGINE 100 UNITS/ML SUB-Q SCH ×2 (09:16→22:00)
[2020-09-13] MEDS: LANSOPRAZOLE 30 MG SOLUTAB FEEDTUBE SCH ×2 (09:18→22:00)
[2020-09-13] MEDS: MULTIVITAMINS 5 ML ORAL LIQUID PO SCH (09:18)
[2020-09-13] MEDS: levETIRAcetam 1,500 MG in DEXTROSE 5% IN WATER 100 ML IV SCH ×2 (09:18→22:13)
[2020-09-13 11:33] LABS: Calcium 8.7 mg/dL (8.4-10.2)
--- NOTE | 2020-09-13 11:48 | Progress Note ---
Assessment and Plan 65 y/o male with out of hospital cardiac arrest now sedated on ativan for possible seizures. 09/13/20: Per current neuro available, the neurologist from yesterday will call today. EEG is nonspecific but given CT of head findings consistent with anoxic encephalopathy, brain injury. As stated in neuro note, overall prognosis is very poor. Will continue to wean down diprovan to see if patient's seizures have been controlled with current Keppra dosing. Will call once she has spoken to neuro to get her thoughts on the next steps. (trach and peg, vs hospice as well as code status). Very very poor prognosis. 09/12/20: Long discussion with this am. Given recent head CT results, prognosis for full functional recovery is very POOR and neurology agrees. They will see in consult today. I have spoken to about AND and she is going to discuss with the family. The neurologist has stated they will reach out to the today. I am going to attempt to wean the ativan off and then start to wean the diprovan as long as no seizure activity is seen. Patient is now bradycardic, likely secondary to neuro state. I hope that he is not about to herniate. Patient is also like in Neurogenic DI given large urine out put volume. Very very poor prognosis. Continue supportive measures. 09/11/20: Will increase Keppra to 1500 BID given patient size. Continue Diprovan drip. Getting EEG today. HD per renal. Needs neurology consult however if patient is in status, needs to be transferred to an institution that can provide continuous EEG monitoring. Overll prognosis is very guarded to poor. Have not spoken to yet today. 09/10/20: Loaded with keppra and will start on Keppra BID. Needs EEG on therapy as well as OFF. If patient is in status, needs transfer to a location with continuous EEG capabilities. FiO2 has been weaned back down and is now at 60%, sats in the high 90's. HD per renal. Coags improving. Overall prognosis is guarded to poor. Spoke with on phone yesterday. Consult neurology tomorrow as not available on the weekend. Suggest checking for antibodies as he may be a candidate for convalsescent plasma. Per the , he was diagnosed with COVID on and spent 6 days inpatient at the [facility]. Remains positive now with multisystem organ failure. Explained to that outcome may not be good but need more time to assess. 09/09/20: EEG ordered on yesterday but not done. If done not read. Continue diprovan for now until EEG can be done or interpreted. State Coags but given his oozing from his vascath, will give Vitamin K and FFP. Patient is covid positive so agree with steroids. Not a candidate for remdesivir. Need to check for antibodies, may be a candidate for convalescent plasma. HD per renal. Given improvement in pH will stop bicarb drip. Feed patient. 1. Stop sedation 2. EEG 3. Needs neuro consult. 4. Art line placement 5. Stat repeat of labs, if renal function is truly that bad, will need renal consult. 6. Follow up COVID testing 7. Likely needs echo 8. Will place on bicarb drip. CCT 31 minutes. Subjective Date of service: 09/13/20 Principal diagnosis: Abnormal LFTs, s/p cardiac arrest, acute kidney injury with ATN Interval history: No acute events. Reviewed neurology note. Mentally unchanged. Still on sedation for seizure prophylaxis. Ativan has been weaned off and diprovan at 20. No visible seizure activity seen on exam. Objective Vital Signs - 12hr 09/12/20 09/13/20 09/13/20 23:51 00:00 00:01 Temperature 98.6 F Pulse Rate 58 L 57 L Respiratory 30 H 30 H Rate Blood Pressure 126/55 121/58 O2 Sat by Pulse 98 96 Oximetry 09/13/20 09/13/20 09/13/20 00:11 00:15 00:21 Temperature 98.9 F Pulse Rate 59 L 57 L 58 L Respiratory 30 H 30 H 30 H Rate Blood Pressure 121/58 121/58 121/58 O2 Sat by Pulse 98 96 98 Oximetry 09/13/20 09/13/20 09/13/20 00:31 00:41 00:51 Temperature Pulse Rate 59 L 58 L 58 L Respiratory 30 H 30 H 30 H Rate Blood Pressure 125/59 125/59 125/59 O2 Sat by Pulse 96 98 98 Oximetry 09/13/20 09/13/20 09/13/20 01:01 01:11 01:21 Temperature Pulse Rate 58 L 58 L 56 L Respiratory 30 H 30 H 30 H Rate Blood Pressure 116/56 116/56 116/56 O2 Sat by Pulse 95 98 98 Oximetry 09/13/20 09/13/20 09/13/20 01:31 01:41 01:51 Temperature Pulse Rate 61 58 L 64 Respiratory 30 H 30 H 30 H Rate Blood Pressure 126/53 126/53 126/53 O2 Sat by Pulse 96 98 98 Oximetry 09/13/20 09/13/20 09/13/20 02:01 02:11 02:15 Temperature Pulse Rate 66 60 Respiratory 30 H 30 H 30 H Rate Blood Pressure 119/48 119/48 O2 Sat by Pulse 96 98 96 Oximetry 09/13/20 09/13/20 09/13/20 02:21 02:31 02:41 Temperature Pulse Rate 60 60 59 L Respiratory 30 H 30 H 30 H Rate Blood Pressure 119/48 124/47 124/47 O2 Sat by Pulse 98 96 98 Oximetry 09/13/20 09/13/20 09/13/20 02:51 03:01 03:11 Temperature Pulse Rate 58 L 58 L 57 L Respiratory 30 H 30 H 30 H Rate Blood Pressure 124/47 110/49 110/49 O2 Sat by Pulse 98 97 98 Oximetry 09/13/20 09/13/20 09/13/20 03:21 03:30 03:41 Temperature Pulse Rate 57 L 59 L 56 L Respiratory 30 H 30 H 30 H Rate Blood Pressure 110/49 117/55 117/55 O2 Sat by Pulse 98 96 98 Oximetry 09/13/20 09/13/20 09/13/20 03:51 04:00 04:01 Temperature 98.8 F Pulse Rate 56 L 55 L Respiratory 30 H 30 H Rate Blood Pressure 117/55 116/53 O2 Sat by Pulse 98 96 Oximetry 09/13/20 09/13/20 09/13/20 04:11 04:21 04:30 Temperature Pulse Rate 55 L 55 L 64 Respiratory 30 H 30 H 14 Rate Blood Pressure 116/53 116/53 116/53 O2 Sat by Pulse 98 97 95 Oximetry 09/13/20 09/13/20 09/13/20 04:40 04:44 04:50 Temperature Pulse Rate 58 L 59 L 59 L Respiratory 30 H 30 H Rate Blood Pressure 120/50 120/50 120/50 O2 Sat by Pulse 96 96 96 Oximetry 09/13/20 09/13/20 09/13/20 05:01 05:11 05:15 Temperature Pulse Rate 58 L 58 L 59 L Respiratory 30 H 30 H 30 H Rate Blood Pressure 115/49 120/50 O2 Sat by Pulse 95 97 96 Oximetry 09/13/20 09/13/20 09/13/20 05:21 05:31 05:41 Temperature Pulse Rate 65 60 57 L Respiratory 30 H 30 H 30 H Rate Blood Pressure 120/50 126/55 126/55 O2 Sat by Pulse 96 94 97 Oximetry 09/13/20 09/13/20 09/13/20 05:51 06:01 06:11 Temperature Pulse Rate 59 L 58 L 58 L Respiratory 30 H 30 H 30 H Rate Blood Pressure 126/55 127/52 127/52 O2 Sat by Pulse 97 95 97 Oximetry 09/13/20 09/13/20 09/13/20 06:21 06:31 06:41 Temperature Pulse Rate 57 L 59 L 57 L Respiratory 30 H 30 H 30 H Rate Blood Pressure 127/52 121/53 121/53 O2 Sat by Pulse 97 95 98 Oximetry 09/13/20 09/13/20 09/13/20 06:51 07:00 07:11 Temperature Pulse Rate 57 L 57 L 57 L Respiratory 30 H 30 H 30 H Rate Blood Pressure 121/53 123/60 123/60 O2 Sat by Pulse 97 95 98 Oximetry 09/13/20 09/13/20 09/13/20 07:21 07:31 07:41 Temperature Pulse Rate 56 L 58 L 56 L Respiratory 30 H 30 H 30 H Rate Blood Pressure 123/60 125/57 125/57 O2 Sat by Pulse 98 95 98 Oximetry 09/13/20 09/13/20 09/13/20 07:51 08:00 08:01 Temperature 98.9 F Pulse Rate 56 L 58 L 56 L Respiratory 30 H 30 H Rate Blood Pressure 125/57 125/57 117/55 O2 Sat by Pulse 98 95 96 Oximetry 09/13/20 09/13/20 09/13/20 08:11 08:21 08:30 Temperature Pulse Rate 56 L 58 L 62 Respiratory 30 H 27 H 30 H Rate Blood Pressure 117/55 117/55 128/59 O2 Sat by Pulse 98 97 93 Oximetry 09/13/20 09/13/20 09/13/20 08:41 08:51 09:00 Temperature Pulse Rate 62 73 70 Respiratory 30 H 21 27 H Rate Blood Pressure 128/59 128/59 128/59 O2 Sat by Pulse 96 92 92 Oximetry 09/13/20 09/13/20 09/13/20 09:11 09:21 09:31 Temperature Pulse Rate 75 71 68 Respiratory 29 H 30 H 30 H Rate Blood Pressure 138/57 113/59 O2 Sat by Pulse 96 97 96 Oximetry 09/13/20 09/13/20 09:41 11:07 Temperature Pulse Rate 63 63 Respiratory 30 H Rate Blood Pressure 113/59 113/59 O2 Sat by Pulse 98 98 Oximetry Constitutional: comatose, other (morbidly obese) Eyes: non-icteric ENT: other (orally intubated and sedated) Neck: supple Effort: normal Ascultation: Bilateral: diminished breath sounds Percussion: Bilateral: not dull Cardiovascular: other (bradycardic) Gastrointestinal: soft CBC and BMP: 09/12/20 04:00 09/13/20 10:50 ABG, PT/INR, D-dimer: ABG ABG pH 7.571 (7.320-7.450) H 09/13/20 04:47 POC ABG pCO2 34.4 mmHg (32.0-48.0) 09/13/20 04:47 ABG pCO2 33.4 mm Hg 09/11/20 05:40 POC ABG pO2 69.0 mmHg (83-108) L 09/13/20 04:47 ABG pO2 112.1 mm Hg (80.0-90.0) H 09/11/20 05:40 POC ABG HCO3 30.9 09/13/20 04:47 ABG O2 Saturation 98.4 % (95.0-99.0) 09/11/20 05:40 PT/INR, D-dimer PT 16.1 Sec. (12.2-14.9) H 09/12/20 04:00 INR 1.31 (0.87-1.13) H 09/12/20 04:00 D-Dimer 8315.85 ng/mlDDU (0-234) H 09/07/20 14:00 Abnormal lab findings: Abnormal Labs 09/07/20 09/07/20 09/07/20 13:08 14:00 14:00 WBC 15.7 H RBC Hgb 10.2 L Hct 32.5 L MCHC 31 L RDW 17.5 H Lymph % (Auto) [place] % (Auto) Lymph # (Auto) [place] # (Auto) Seg Neutrophils % Seg Neuts % (Manual) 72.0 H Lymphocytes % (Manual) Monocytes % (Manual) 8.0 H Nucleated RBC % Seg Neutrophils # Seg Neutrophils # Man 11.3 H Lymphocytes # (Manual) Monocytes # (Manual) 1.3 H PT INR D-Dimer 8315.85 H ABG pH POC ABG pCO2 POC ABG pO2 ABG pO2 ABG HCO3 ABG Base Excess ABG Hemoglobin ABG Oxyhemoglobin ABG Sodium ABG Potassium ABG Chloride ABG Glucose Carboxyhemoglobin Sodium Potassium Chloride Carbon Dioxide BUN Creatinine Glucose POC Glucose Lactic Acid Calcium Phosphorus Ferritin Total Bilirubin Direct Bilirubin AST ALT Lactate Dehydrogenase Total Creatine Kinase Troponin T Total Protein Albumin Triglycerides Arterial Blood Glucose Arterial Blood Ionized Calcium Urine pH 8.0 H Urine Creatinine Salicylates Acetaminophen Coronavirus (PCR) 09/07/20 09/07/20 09/07/20 14:00 14:00 14:00 WBC RBC Hgb Hct MCHC RDW Lymph % (Auto) [place] % (Auto) Lymph # (Auto) [place] # (Auto) Seg Neutrophils % Seg Neuts % (Manual) Lymphocytes % (Manual) Monocytes % (Manual) Nucleated RBC % Seg Neutrophils # Seg Neutrophils # Man Lymphocytes # (Manual) Monocytes # (Manual) PT INR D-Dimer ABG pH POC ABG pCO2 POC ABG pO2 ABG pO2 ABG HCO3 ABG Base Excess ABG Hemoglobin ABG Oxyhemoglobin ABG Sodium ABG Potassium ABG Chloride ABG Glucose Carboxyhemoglobin Sodium Potassium Chloride Carbon Dioxide BUN Creatinine Glucose POC Glucose Lactic Acid 4.30 H* Calcium Phosphorus Ferritin > 2000.0 H Total Bilirubin Direct Bilirubin AST ALT Lactate Dehydrogenase 882 H Total Creatine Kinase 477 H Troponin T 0.076 H Total Protein Albumin Triglycerides Arterial Blood Glucose Arterial Blood Ionized Calcium Urine pH Urine Creatinine Salicylates Acetaminophen Coronavirus (PCR) 09/07/20 09/07/20 09/07/20 14:00 14:00 14:00 WBC RBC Hgb Hct MCHC RDW Lymph % (Auto) [place] % (Auto) Lymph # (Auto) [place] # (Auto) Seg Neutrophils % Seg Neuts % (Manual) Lymphocytes % (Manual) Monocytes % (Manual) Nucleated RBC % Seg Neutrophils # Seg Neutrophils # Man Lymphocytes # (Manual) Monocytes # (Manual) PT INR D-Dimer ABG pH POC ABG pCO2 POC ABG pO2 ABG pO2 ABG HCO3 ABG Base Excess ABG Hemoglobin ABG Oxyhemoglobin ABG Sodium ABG Potassium ABG Chloride ABG Glucose Carboxyhemoglobin Sodium Potassium Chloride Carbon Dioxide BUN Creatinine 1.8 H Glucose POC Glucose Lactic Acid Calcium Phosphorus Ferritin Total Bilirubin Direct Bilirubin AST 310 H ALT 339 H Lactate Dehydrogenase Total Creatine Kinase Troponin T Total Protein Albumin 3.6 L Triglycerides Arterial Blood Glucose Arterial Blood Ionized Calcium Urine pH Urine Creatinine Salicylates < 0.3 L Acetaminophen 5.0 L Coronavirus (PCR) 09/07/20 09/08/20 09/08/20 14:26 04:00 04:17 WBC RBC Hgb Hct MCHC RDW Lymph % (Auto) [place] % (Auto) Lymph # (Auto) [place] # (Auto) Seg Neutrophils % Seg Neuts % (Manual) Lymphocytes % (Manual) Monocytes % (Manual) Nucleated RBC % Seg Neutrophils # Seg Neutrophils # Man Lymphocytes # (Manual) Monocytes # (Manual) PT INR D-Dimer ABG pH 7.037 L 7.095 L POC ABG pCO2 92.4 H 68.0 H POC ABG pO2 130.8 H 43.5 L ABG pO2 ABG HCO3 ABG Base Excess ABG Hemoglobin 11.3 L 10.6 L ABG Oxyhemoglobin 70.8 L ABG Sodium ABG Potassium 7.0 H ABG Chloride 108.0 H ABG Glucose Carboxyhemoglobin 0.3 L Sodium Potassium 8.4 H* D Chloride Carbon Dioxide 17 L D BUN 38 H Creatinine 3.9 H D Glucose POC Glucose Lactic Acid Calcium 7.7 L D Phosphorus Ferritin Total Bilirubin Direct Bilirubin AST ALT Lactate Dehydrogenase Total Creatine Kinase Troponin T Total Protein Albumin Triglycerides Arterial Blood Glucose Arterial Blood Ionized Calcium 4.5 L Urine pH Urine Creatinine Salicylates Acetaminophen Coronavirus (PCR) 09/08/20 09/08/20 09/08/20 05:00 05:25 12:02 WBC RBC Hgb Hct MCHC RDW Lymph % (Auto) [place] % (Auto) Lymph # (Auto) [place] # (Auto) Seg Neutrophils % Seg Neuts % (Manual) Lymphocytes % (Manual) Monocytes % (Manual) Nucleated RBC % Seg Neutrophils # Seg Neutrophils # Man Lymphocytes # (Manual) Monocytes # (Manual) PT INR D-Dimer ABG pH 7.088 L POC ABG pCO2 69.1 H POC ABG pO2 35.2 L ABG pO2 ABG HCO3 ABG Base Excess ABG Hemoglobin 10.9 L ABG Oxyhemoglobin 57.1 L ABG Sodium ABG Potassium 7.0 H ABG Chloride 108.0 H ABG Glucose Carboxyhemoglobin 0.4 L Sodium Potassium 8.1 H* Chloride Carbon Dioxide 17 L BUN 38 H Creatinine 3.7 H Glucose POC Glucose Lactic Acid Calcium 8.0 L Phosphorus 8.00 H Ferritin Total Bilirubin Direct Bilirubin 0.5 H AST 3696 H ALT 3331 H Lactate Dehydrogenase Total Creatine Kinase Troponin T Total Protein Albumin 3.5 L Triglycerides Arterial Blood Glucose Arterial Blood Ionized Calcium 4.4 L Urine pH Urine Creatinine Salicylates Acetaminophen Coronavirus (PCR) 09/08/20 09/08/20 09/08/20 16:31 22:36 Unknown WBC RBC Hgb Hct MCHC RDW Lymph % (Auto) [place] % (Auto) Lymph # (Auto) [place] # (Auto) Seg Neutrophils % Seg Neuts % (Manual) Lymphocytes % (Manual) Monocytes % (Manual) Nucleated RBC % Seg Neutrophils # Seg Neutrophils # Man Lymphocytes # (Manual) Monocytes # (Manual) PT INR D-Dimer ABG pH POC ABG pCO2 POC ABG pO2 ABG pO2 ABG HCO3 ABG Base Excess ABG Hemoglobin ABG Oxyhemoglobin ABG Sodium ABG Potassium ABG Chloride ABG Glucose Carboxyhemoglobin Sodium Potassium 5.3 H D Chloride Carbon Dioxide BUN Creatinine Glucose POC Glucose 158 H Lactic Acid Calcium Phosphorus Ferritin Total Bilirubin Direct Bilirubin AST ALT Lactate Dehydrogenase Total Creatine Kinase Troponin T Total Protein Albumin Triglycerides Arterial Blood Glucose Arterial Blood Ionized Calcium Urine pH Urine Creatinine Salicylates Acetaminophen Coronavirus (PCR) Positive A 09/08/20 09/08/20 09/08/20 Unknown Unknown Unknown WBC 18.4 H RBC Hgb 10.1 L Hct 32.0 L MCHC RDW 18.2 H Lymph % (Auto) [place] % (Auto) Lymph # (Auto) [place] # (Auto) Seg Neutrophils % Seg Neuts % (Manual) 81.0 H Lymphocytes % (Manual) 2.0 L Monocytes % (Manual) Nucleated RBC % 1.0 H Seg Neutrophils # Seg Neutrophils # Man 14.9 H Lymphocytes # (Manual) 0.4 L Monocytes # (Manual) 1.1 H PT 21.2 H INR 1.83 H D-Dimer ABG pH POC ABG pCO2 POC ABG pO2 ABG pO2 ABG HCO3 ABG Base Excess ABG Hemoglobin ABG Oxyhemoglobin ABG Sodium ABG Potassium ABG Chloride ABG Glucose Carboxyhemoglobin Sodium Potassium Chloride Carbon Dioxide BUN Creatinine Glucose POC Glucose Lactic Acid Calcium Phosphorus Ferritin Total Bilirubin Direct Bilirubin AST ALT Lactate Dehydrogenase Total Creatine Kinase Troponin T Total Protein Albumin Triglycerides Arterial Blood Glucose Arterial Blood Ionized Calcium Urine pH Urine Creatinine 182.4 H Salicylates Acetaminophen Coronavirus (PCR) 09/09/20 09/09/20 09/09/20 03:14 04:20 04:20 WBC 16.3 H RBC 3.12 L Hgb 8.6 L Hct 26.8 L MCHC RDW 18.2 H Lymph % (Auto) 6.3 L [place] % (Auto) 8.8 H Lymph # (Auto) 1.0 L [place] # (Auto) 1.4 H Seg Neutrophils % 84.5 H Seg Neuts % (Manual) Lymphocytes % (Manual) Monocytes % (Manual) Nucleated RBC % Seg Neutrophils # 13.7 H Seg Neutrophils # Man Lymphocytes # (Manual) Monocytes # (Manual) PT INR D-Dimer ABG pH POC ABG pCO2 POC ABG pO2 148.5 H ABG pO2 ABG HCO3 ABG Base Excess ABG Hemoglobin 9.4 L ABG Oxyhemoglobin 98.8 H ABG Sodium 134.8 L ABG Potassium 5.0 H ABG Chloride ABG Glucose 222 H Carboxyhemoglobin 0.1 L Sodium Potassium 5.2 H Chloride Carbon Dioxide BUN 47 H Creatinine 4.3 H Glucose 211 H POC Glucose Lactic Acid Calcium 7.4 L Phosphorus Ferritin Total Bilirubin [place] 26439 H ALT 6206 H Lactate Dehydrogenase Total Creatine Kinase Troponin T Total Protein 5.6 L Albumin 3.0 L Triglycerides Arterial Blood Glucose 222 H Arterial Blood Ionized Calcium 3.8 L Urine pH Urine Creatinine Salicylates Acetaminophen Coronavirus (PCR) 09/09/20 09/09/20 09/09/20 10:00 12:23 18:22 WBC RBC Hgb Hct MCHC RDW Lymph % (Auto) [place] % (Auto) Lymph # (Auto) [place] # (Auto) Seg Neutrophils % Seg Neuts % (Manual) Lymphocytes % (Manual) Monocytes % (Manual) Nucleated RBC % Seg Neutrophils # Seg Neutrophils # Man Lymphocytes # (Manual) Monocytes # (Manual) PT 21.7 H INR 1.90 H D-Dimer ABG pH POC ABG pCO2 POC ABG pO2 ABG pO2 ABG HCO3 ABG Base Excess ABG Hemoglobin ABG Oxyhemoglobin ABG Sodium ABG Potassium ABG Chloride ABG Glucose Carboxyhemoglobin Sodium Potassium Chloride Carbon Dioxide BUN Creatinine Glucose POC Glucose 216 H 211 H Lactic Acid Calcium Phosphorus Ferritin Total Bilirubin Direct Bilirubin AST ALT Lactate Dehydrogenase Total Creatine Kinase Troponin T Total Protein Albumin Triglycerides Arterial Blood Glucose Arterial Blood Ionized Calcium Urine pH Urine Creatinine Salicylates Acetaminophen Coronavirus (PCR) 09/10/20 09/10/20 09/10/20 04:00 04:05 04:05 WBC 15.0 H RBC 3.06 L Hgb 8.6 L Hct 25.8 L MCHC RDW 18.0 H Lymph % (Auto) [place] % (Auto) Lymph # (Auto) [place] # (Auto) Seg Neutrophils % Seg Neuts % (Manual) 86.0 H Lymphocytes % (Manual) 6.0 L Monocytes % (Manual) 8.0 H Nucleated RBC % Seg Neutrophils # Seg Neutrophils # Man 12.9 H Lymphocytes # (Manual) 0.9 L Monocytes # (Manual) 1.2 H PT 18.4 H INR 1.54 H D-Dimer ABG pH POC ABG pCO2 POC ABG pO2 ABG pO2 ABG HCO3 ABG Base Excess ABG Hemoglobin ABG Oxyhemoglobin ABG Sodium ABG Potassium ABG Chloride ABG Glucose Carboxyhemoglobin Sodium 134 L Potassium Chloride 93.7 L Carbon Dioxide BUN 46 H Creatinine 3.6 H Glucose 275 H POC Glucose Lactic Acid Calcium 7.7 L Phosphorus Ferritin Total Bilirubin 1.30 H Direct Bilirubin AST 5899 H ALT 6440 H Lactate Dehydrogenase Total Creatine Kinase Troponin T Total Protein 5.9 L Albumin 3.3 L Triglycerides Arterial Blood Glucose Arterial Blood Ionized Calcium Urine pH Urine Creatinine Salicylates Acetaminophen Coronavirus (PCR) 09/10/20 09/10/20 09/10/20 04:35 12:06 17:42 WBC RBC Hgb Hct MCHC RDW Lymph % (Auto) [place] % (Auto) Lymph # (Auto) [place] # (Auto) Seg Neutrophils % Seg Neuts % (Manual) Lymphocytes % (Manual) Monocytes % (Manual) Nucleated RBC % Seg Neutrophils # Seg Neutrophils # Man Lymphocytes # (Manual) Monocytes # (Manual) PT INR D-Dimer ABG pH 7.464 H POC ABG pCO2 POC ABG pO2 ABG pO2 ABG HCO3 ABG Base Excess ABG Hemoglobin 9.9 L ABG Oxyhemoglobin ABG Sodium 131.6 L ABG Potassium ABG Chloride 97.0 L ABG Glucose 281 H Carboxyhemoglobin 0.1 L Sodium Potassium Chloride Carbon Dioxide BUN Creatinine Glucose POC Glucose 298 H 340 H Lactic Acid Calcium Phosphorus Ferritin Total Bilirubin Direct Bilirubin AST ALT Lactate Dehydrogenase Total Creatine Kinase Troponin T Total Protein Albumin Triglycerides Arterial Blood Glucose 281 H Arterial Blood Ionized Calcium 3.9 L Urine pH Urine Creatinine Salicylates Acetaminophen Coronavirus (PCR) 09/10/20 09/11/20 09/11/20 23:07 04:44 05:17 WBC RBC Hgb Hct MCHC RDW Lymph % (Auto) [place] % (Auto) Lymph # (Auto) [place] # (Auto) Seg Neutrophils % Seg Neuts % (Manual) Lymphocytes % (Manual) Monocytes % (Manual) Nucleated RBC % Seg Neutrophils # Seg Neutrophils # Man Lymphocytes # (Manual) Monocytes # (Manual) PT 16.9 H INR 1.39 H D-Dimer ABG pH POC ABG pCO2 POC ABG pO2 ABG pO2 ABG HCO3 ABG Base Excess ABG Hemoglobin ABG Oxyhemoglobin ABG Sodium ABG Potassium ABG Chloride ABG Glucose Carboxyhemoglobin Sodium Potassium Chloride Carbon Dioxide BUN Creatinine Glucose POC Glucose 367 H 416 H Lactic Acid Calcium Phosphorus Ferritin Total Bilirubin Direct Bilirubin AST ALT Lactate Dehydrogenase Total Creatine Kinase Troponin T Total Protein Albumin Triglycerides Arterial Blood Glucose Arterial Blood Ionized Calcium Urine pH Urine Creatinine Salicylates Acetaminophen Coronavirus (PCR) 09/11/20 09/11/20 09/11/20 05:40 12:01 17:50 WBC RBC Hgb Hct MCHC RDW Lymph % (Auto) [place] % (Auto) Lymph # (Auto) [place] # (Auto) Seg Neutrophils % Seg Neuts % (Manual) Lymphocytes % (Manual) Monocytes % (Manual) Nucleated RBC % Seg Neutrophils # Seg Neutrophils # Man Lymphocytes # (Manual) Monocytes # (Manual) PT INR D-Dimer ABG pH 7.543 H POC ABG pCO2 POC ABG pO2 ABG pO2 112.1 H ABG HCO3 28.1 H ABG Base Excess 5.4 H ABG Hemoglobin 8.4 L ABG Oxyhemoglobin ABG Sodium ABG Potassium ABG Chloride ABG Glucose Carboxyhemoglobin Sodium Potassium Chloride Carbon Dioxide BUN Creatinine Glucose POC Glucose 418 H 404 H Lactic Acid Calcium Phosphorus Ferritin Total Bilirubin Direct Bilirubin AST ALT Lactate Dehydrogenase Total Creatine Kinase Troponin T Total Protein Albumin Triglycerides Arterial Blood Glucose Arterial Blood Ionized Calcium Urine pH Urine Creatinine Salicylates Acetaminophen Coronavirus (PCR) 09/11/20 09/11/20 09/12/20 23:10 23:43 03:15 WBC RBC Hgb Hct MCHC RDW Lymph % (Auto) [place] % (Auto) Lymph # (Auto) [place] # (Auto) Seg Neutrophils % Seg Neuts % (Manual) Lymphocytes % (Manual) Monocytes % (Manual) Nucleated RBC % Seg Neutrophils # Seg Neutrophils # Man Lymphocytes # (Manual) Monocytes # (Manual) PT INR D-Dimer ABG pH POC ABG pCO2 POC ABG pO2 ABG pO2 ABG HCO3 ABG Base Excess ABG Hemoglobin ABG Oxyhemoglobin ABG Sodium ABG Potassium ABG Chloride ABG Glucose Carboxyhemoglobin Sodium 135 L Potassium Chloride 92.3 L Carbon Dioxide BUN 62 H Creatinine 3.7 H Glucose 406 H POC Glucose 372 H 359 H Lactic Acid Calcium Phosphorus Ferritin Total Bilirubin Direct Bilirubin AST 687 H ALT 3701 H Lactate Dehydrogenase Total Creatine Kinase Troponin T Total Protein 5.8 L Albumin 3.1 L Triglycerides Arterial Blood Glucose Arterial Blood Ionized Calcium Urine pH Urine Creatinine Salicylates Acetaminophen Coronavirus (PCR) 09/12/20 09/12/20 09/12/20 03:18 04:00 04:00 WBC 13.7 H RBC 3.30 L Hgb 9.3 L Hct 27.6 L MCHC RDW 17.5 H Lymph % (Auto) [place] % (Auto) Lymph # (Auto) [place] # (Auto) Seg Neutrophils % Seg Neuts % (Manual) 76.0 H Lymphocytes % (Manual) 11.0 L Monocytes % (Manual) 13.0 H Nucleated RBC % Seg Neutrophils # Seg Neutrophils # Man 10.4 H Lymphocytes # (Manual) Monocytes # (Manual) 1.8 H PT 16.1 H INR 1.31 H D-Dimer ABG pH 7.558 H POC ABG pCO2 POC ABG pO2 74.7 L ABG pO2 ABG HCO3 ABG Base Excess ABG Hemoglobin 9.7 L ABG Oxyhemoglobin ABG Sodium 132.4 L ABG Potassium ABG Chloride 95.0 L ABG Glucose 437 H Carboxyhemoglobin Sodium Potassium Chloride Carbon Dioxide BUN Creatinine Glucose POC Glucose Lactic Acid Calcium Phosphorus Ferritin Total Bilirubin Direct Bilirubin AST ALT Lactate Dehydrogenase Total Creatine Kinase Troponin T Total Protein Albumin Triglycerides Arterial Blood Glucose 437 H Arterial Blood Ionized Calcium 4.3 L Urine pH Urine Creatinine Salicylates Acetaminophen Coronavirus (PCR) 09/12/20 09/12/20 09/12/20 04:21 05:20 06:37 WBC RBC Hgb Hct MCHC RDW Lymph % (Auto) [place] % (Auto) Lymph # (Auto) [place] # (Auto) Seg Neutrophils % Seg Neuts % (Manual) Lymphocytes % (Manual) Monocytes % (Manual) Nucleated RBC % Seg Neutrophils # Seg Neutrophils # Man Lymphocytes # (Manual) Monocytes # (Manual) PT INR D-Dimer ABG pH POC ABG pCO2 POC ABG pO2 ABG pO2 ABG HCO3 ABG Base Excess ABG Hemoglobin ABG Oxyhemoglobin ABG Sodium ABG Potassium ABG Chloride ABG Glucose Carboxyhemoglobin Sodium Potassium Chloride Carbon Dioxide BUN Creatinine Glucose POC Glucose 417 H 397 H 370 H Lactic Acid Calcium Phosphorus Ferritin Total Bilirubin Direct Bilirubin AST ALT Lactate Dehydrogenase Total Creatine Kinase Troponin T Total Protein Albumin Triglycerides Arterial Blood Glucose Arterial Blood Ionized Calcium Urine pH Urine Creatinine Salicylates Acetaminophen Coronavirus (PCR) 09/12/20 09/12/20 09/12/20 11:56 17:14 21:52 WBC RBC Hgb Hct MCHC RDW Lymph % (Auto) [place] % (Auto) Lymph # (Auto) [place] # (Auto) Seg Neutrophils % Seg Neuts % (Manual) Lymphocytes % (Manual) Monocytes % (Manual) Nucleated RBC % Seg Neutrophils # Seg Neutrophils # Man Lymphocytes # (Manual) Monocytes # (Manual) PT INR D-Dimer ABG pH POC ABG pCO2 POC ABG pO2 ABG pO2 ABG HCO3 ABG Base Excess ABG Hemoglobin ABG Oxyhemoglobin ABG Sodium ABG Potassium ABG Chloride ABG Glucose Carboxyhemoglobin Sodium Potassium Chloride Carbon Dioxide BUN Creatinine Glucose POC Glucose 341 H 325 H 285 H Lactic Acid Calcium Phosphorus Ferritin Total Bilirubin Direct Bilirubin AST ALT Lactate Dehydrogenase Total Creatine Kinase Troponin T Total Protein Albumin Triglycerides Arterial Blood Glucose Arterial Blood Ionized Calcium Urine pH Urine Creatinine Salicylates Acetaminophen Coronavirus (PCR) 09/12/20 09/12/20 09/12/20 23:39 Unknown Unknown WBC RBC Hgb Hct MCHC RDW Lymph % (Auto) [place] % (Auto) Lymph # (Auto) [place] # (Auto) Seg Neutrophils % Seg Neuts % (Manual) Lymphocytes % (Manual) Monocytes % (Manual) Nucleated RBC % Seg Neutrophils # Seg Neutrophils # Man Lymphocytes # (Manual) Monocytes # (Manual) PT INR D-Dimer ABG pH POC ABG pCO2 POC ABG pO2 ABG pO2 ABG HCO3 ABG Base Excess ABG Hemoglobin ABG Oxyhemoglobin ABG Sodium ABG Potassium ABG Chloride ABG Glucose Carboxyhemoglobin Sodium 135 L Potassium Chloride 92.2 L Carbon Dioxide BUN 65 H Creatinine 3.5 H Glucose 418 H POC Glucose 338 H Lactic Acid Calcium Phosphorus Ferritin Total Bilirubin Direct Bilirubin AST 553 H ALT 3453 H Lactate Dehydrogenase Total Creatine Kinase Troponin T Total Protein 5.9 L Albumin 3.0 L Triglycerides 220 H Arterial Blood Glucose Arterial Blood Ionized Calcium Urine pH Urine Creatinine Salicylates Acetaminophen Coronavirus (PCR) 09/13/20 09/13/20 09/13/20 04:47 05:24 10:50 WBC RBC Hgb Hct MCHC RDW Lymph % (Auto) [place] % (Auto) Lymph # (Auto) [place] # (Auto) Seg Neutrophils % Seg Neuts % (Manual) Lymphocytes % (Manual) Monocytes % (Manual) Nucleated RBC % Seg Neutrophils # Seg Neutrophils # Man Lymphocytes # (Manual) Monocytes # (Manual) PT INR D-Dimer ABG pH 7.571 H POC ABG pCO2 POC ABG pO2 69.0 L ABG pO2 ABG HCO3 ABG Base Excess ABG Hemoglobin 10.1 L ABG Oxyhemoglobin 93.2 L ABG Sodium 134.0 L ABG Potassium ABG Chloride ABG Glucose 365 H Carboxyhemoglobin 0.4 L Sodium Potassium Chloride 96.6 L Carbon Dioxide 32 H BUN 76 H Creatinine 3.1 H Glucose 395 H POC Glucose 329 H Lactic Acid Calcium Phosphorus Ferritin Total Bilirubin Direct Bilirubin AST ALT Lactate Dehydrogenase Total Creatine Kinase Troponin T Total Protein Albumin Triglycerides Arterial Blood Glucose 365 H Arterial Blood Ionized Calcium Urine pH Urine Creatinine Salicylates Acetaminophen Coronavirus (PCR)
--- NOTE | 2020-09-13 11:53 | Progress Note ---
Subjective Principal diagnosis: Abnormal LFTs, s/p cardiac arrest, acute kidney injury with ATN Interval history: Spoke with about the Progress of Neurological Issues, have explained based upon the data the chances of Meaninful Neurological Recovery is Guarded. She Understands the same . Dr. Manrique Objective - Vital Sign Vital Signs - 12hr 09/12/20 09/13/20 09/13/20 23:51 00:00 00:01 Temperature 98.6 F Pulse Rate 58 L 57 L Respiratory 30 H 30 H Rate Blood Pressure 126/55 121/58 O2 Sat by Pulse 98 96 Oximetry 09/13/20 09/13/20 09/13/20 00:11 00:15 00:21 Temperature 98.9 F Pulse Rate 59 L 57 L 58 L Respiratory 30 H 30 H 30 H Rate Blood Pressure 121/58 121/58 121/58 O2 Sat by Pulse 98 96 98 Oximetry 09/13/20 09/13/20 09/13/20 00:31 00:41 00:51 Temperature Pulse Rate 59 L 58 L 58 L Respiratory 30 H 30 H 30 H Rate Blood Pressure 125/59 125/59 125/59 O2 Sat by Pulse 96 98 98 Oximetry 09/13/20 09/13/20 09/13/20 01:01 01:11 01:21 Temperature Pulse Rate 58 L 58 L 56 L Respiratory 30 H 30 H 30 H Rate Blood Pressure 116/56 116/56 116/56 O2 Sat by Pulse 95 98 98 Oximetry 09/13/20 09/13/20 09/13/20 01:31 01:41 01:51 Temperature Pulse Rate 61 58 L 64 Respiratory 30 H 30 H 30 H Rate Blood Pressure 126/53 126/53 126/53 O2 Sat by Pulse 96 98 98 Oximetry 09/13/20 09/13/20 09/13/20 02:01 02:11 02:15 Temperature Pulse Rate 66 60 Respiratory 30 H 30 H 30 H Rate Blood Pressure 119/48 119/48 O2 Sat by Pulse 96 98 96 Oximetry 09/13/20 09/13/20 09/13/20 02:21 02:31 02:41 Temperature Pulse Rate 60 60 59 L Respiratory 30 H 30 H 30 H Rate Blood Pressure 119/48 124/47 124/47 O2 Sat by Pulse 98 96 98 Oximetry 09/13/20 09/13/20 09/13/20 02:51 03:01 03:11 Temperature Pulse Rate 58 L 58 L 57 L Respiratory 30 H 30 H 30 H Rate Blood Pressure 124/47 110/49 110/49 O2 Sat by Pulse 98 97 98 Oximetry 09/13/20 09/13/20 09/13/20 03:21 03:30 03:41 Temperature Pulse Rate 57 L 59 L 56 L Respiratory 30 H 30 H 30 H Rate Blood Pressure 110/49 117/55 117/55 O2 Sat by Pulse 98 96 98 Oximetry 09/13/20 09/13/20 09/13/20 03:51 04:00 04:01 Temperature 98.8 F Pulse Rate 56 L 55 L Respiratory 30 H 30 H Rate Blood Pressure 117/55 116/53 O2 Sat by Pulse 98 96 Oximetry 09/13/20 09/13/20 09/13/20 04:11 04:21 04:30 Temperature Pulse Rate 55 L 55 L 64 Respiratory 30 H 30 H 14 Rate Blood Pressure 116/53 116/53 116/53 O2 Sat by Pulse 98 97 95 Oximetry 09/13/20 09/13/20 09/13/20 04:40 04:44 04:50 Temperature Pulse Rate 58 L 59 L 59 L Respiratory 30 H 30 H Rate Blood Pressure 120/50 120/50 120/50 O2 Sat by Pulse 96 96 96 Oximetry 09/13/20 09/13/20 09/13/20 05:01 05:11 05:15 Temperature Pulse Rate 58 L 58 L 59 L Respiratory 30 H 30 H 30 H Rate Blood Pressure 115/49 120/50 O2 Sat by Pulse 95 97 96 Oximetry 09/13/20 09/13/20 09/13/20 05:21 05:31 05:41 Temperature Pulse Rate 65 60 57 L Respiratory 30 H 30 H 30 H Rate Blood Pressure 120/50 126/55 126/55 O2 Sat by Pulse 96 94 97 Oximetry 09/13/20 09/13/20 09/13/20 05:51 06:01 06:11 Temperature Pulse Rate 59 L 58 L 58 L Respiratory 30 H 30 H 30 H Rate Blood Pressure 126/55 127/52 127/52 O2 Sat by Pulse 97 95 97 Oximetry 09/13/20 09/13/20 09/13/20 06:21 06:31 06:41 Temperature Pulse Rate 57 L 59 L 57 L Respiratory 30 H 30 H 30 H Rate Blood Pressure 127/52 121/53 121/53 O2 Sat by Pulse 97 95 98 Oximetry 09/13/20 09/13/20 09/13/20 06:51 07:00 07:11 Temperature Pulse Rate 57 L 57 L 57 L Respiratory 30 H 30 H 30 H Rate Blood Pressure 121/53 123/60 123/60 O2 Sat by Pulse 97 95 98 Oximetry 09/13/20 09/13/20 09/13/20 07:21 07:31 07:41 Temperature Pulse Rate 56 L 58 L 56 L Respiratory 30 H 30 H 30 H Rate Blood Pressure 123/60 125/57 125/57 O2 Sat by Pulse 98 95 98 Oximetry 09/13/20 09/13/20 09/13/20 07:51 08:00 08:01 Temperature 98.9 F Pulse Rate 56 L 58 L 56 L Respiratory 30 H 30 H Rate Blood Pressure 125/57 125/57 117/55 O2 Sat by Pulse 98 95 96 Oximetry 09/13/20 09/13/20 09/13/20 08:11 08:21 08:30 Temperature Pulse Rate 56 L 58 L 62 Respiratory 30 H 27 H 30 H Rate Blood Pressure 117/55 117/55 128/59 O2 Sat by Pulse 98 97 93 Oximetry 09/13/20 09/13/20 09/13/20 08:41 08:51 09:00 Temperature Pulse Rate 62 73 70 Respiratory 30 H 21 27 H Rate Blood Pressure 128/59 128/59 128/59 O2 Sat by Pulse 96 92 92 Oximetry 09/13/20 09/13/20 09/13/20 09:11 09:21 09:31 Temperature Pulse Rate 75 71 68 Respiratory 29 H 30 H 30 H Rate Blood Pressure 138/57 113/59 O2 Sat by Pulse 96 97 96 Oximetry 09/13/20 09/13/20 09:41 11:07 Temperature Pulse Rate 63 63 Respiratory 30 H Rate Blood Pressure 113/59 113/59 O2 Sat by Pulse 98 98 Oximetry - Laboratory Findings CBC and BMP: 09/12/20 04:00 09/13/20 10:50 Abnormal Lab Findings: Abnormal Labs 09/07/20 09/07/20 09/07/20 13:08 14:00 14:00 WBC 15.7 H RBC Hgb 10.2 L Hct 32.5 L MCHC 31 L RDW 17.5 H Lymph % (Auto) [place] % (Auto) Lymph # (Auto) [place] # (Auto) Seg Neutrophils % Seg Neuts % (Manual) 72.0 H Lymphocytes % (Manual) Monocytes % (Manual) 8.0 H Nucleated RBC % Seg Neutrophils # Seg Neutrophils # Man 11.3 H Lymphocytes # (Manual) Monocytes # (Manual) 1.3 H PT INR D-Dimer 8315.85 H ABG pH POC ABG pCO2 POC ABG pO2 ABG pO2 ABG HCO3 ABG Base Excess ABG Hemoglobin ABG Oxyhemoglobin ABG Sodium ABG Potassium ABG Chloride ABG Glucose Carboxyhemoglobin Sodium Potassium Chloride Carbon Dioxide BUN Creatinine Glucose POC Glucose Lactic Acid Calcium Phosphorus Ferritin Total Bilirubin Direct Bilirubin AST ALT Lactate Dehydrogenase Total Creatine Kinase Troponin T Total Protein Albumin Triglycerides Arterial Blood Glucose Arterial Blood Ionized Calcium Urine pH 8.0 H Urine Creatinine Salicylates Acetaminophen Coronavirus (PCR) 09/07/20 09/07/20 09/07/20 14:00 14:00 14:00 WBC RBC Hgb Hct MCHC RDW Lymph % (Auto) [place] % (Auto) Lymph # (Auto) [place] # (Auto) Seg Neutrophils % Seg Neuts % (Manual) Lymphocytes % (Manual) Monocytes % (Manual) Nucleated RBC % Seg Neutrophils # Seg Neutrophils # Man Lymphocytes # (Manual) Monocytes # (Manual) PT INR D-Dimer ABG pH POC ABG pCO2 POC ABG pO2 ABG pO2 ABG HCO3 ABG Base Excess ABG Hemoglobin ABG Oxyhemoglobin ABG Sodium ABG Potassium ABG Chloride ABG Glucose Carboxyhemoglobin Sodium Potassium Chloride Carbon Dioxide BUN Creatinine Glucose POC Glucose Lactic Acid 4.30 H* Calcium Phosphorus Ferritin > 2000.0 H Total Bilirubin Direct Bilirubin AST ALT Lactate Dehydrogenase 882 H Total Creatine Kinase 477 H Troponin T 0.076 H Total Protein Albumin Triglycerides Arterial Blood Glucose Arterial Blood Ionized Calcium Urine pH Urine Creatinine Salicylates Acetaminophen Coronavirus (PCR) 09/07/20 09/07/20 09/07/20 14:00 14:00 14:00 WBC RBC Hgb Hct MCHC RDW Lymph % (Auto) [place] % (Auto) Lymph # (Auto) [place] # (Auto) Seg Neutrophils % Seg Neuts % (Manual) Lymphocytes % (Manual) Monocytes % (Manual) Nucleated RBC % Seg Neutrophils # Seg Neutrophils # Man Lymphocytes # (Manual) Monocytes # (Manual) PT INR D-Dimer ABG pH POC ABG pCO2 POC ABG pO2 ABG pO2 ABG HCO3 ABG Base Excess ABG Hemoglobin ABG Oxyhemoglobin ABG Sodium ABG Potassium ABG Chloride ABG Glucose Carboxyhemoglobin Sodium Potassium Chloride Carbon Dioxide BUN Creatinine 1.8 H Glucose POC Glucose Lactic Acid Calcium Phosphorus Ferritin Total Bilirubin Direct Bilirubin AST 310 H ALT 339 H Lactate Dehydrogenase Total Creatine Kinase Troponin T Total Protein Albumin 3.6 L Triglycerides Arterial Blood Glucose Arterial Blood Ionized Calcium Urine pH Urine Creatinine Salicylates < 0.3 L Acetaminophen 5.0 L Coronavirus (PCR) 09/07/20 09/08/20 09/08/20 14:26 04:00 04:17 WBC RBC Hgb Hct MCHC RDW Lymph % (Auto) [place] % (Auto) Lymph # (Auto) [place] # (Auto) Seg Neutrophils % Seg Neuts % (Manual) Lymphocytes % (Manual) Monocytes % (Manual) Nucleated RBC % Seg Neutrophils # Seg Neutrophils # Man Lymphocytes # (Manual) Monocytes # (Manual) PT INR D-Dimer ABG pH 7.037 L 7.095 L POC ABG pCO2 92.4 H 68.0 H POC ABG pO2 130.8 H 43.5 L ABG pO2 ABG HCO3 ABG Base Excess ABG Hemoglobin 11.3 L 10.6 L ABG Oxyhemoglobin 70.8 L ABG Sodium ABG Potassium 7.0 H ABG Chloride 108.0 H ABG Glucose Carboxyhemoglobin 0.3 L Sodium Potassium 8.4 H* D Chloride Carbon Dioxide 17 L D BUN 38 H Creatinine 3.9 H D Glucose POC Glucose Lactic Acid Calcium 7.7 L D Phosphorus Ferritin Total Bilirubin Direct Bilirubin AST ALT Lactate Dehydrogenase Total Creatine Kinase Troponin T Total Protein Albumin Triglycerides Arterial Blood Glucose Arterial Blood Ionized Calcium 4.5 L Urine pH Urine Creatinine Salicylates Acetaminophen Coronavirus (PCR) 09/08/20 09/08/20 09/08/20 05:00 05:25 12:02 WBC RBC Hgb Hct MCHC RDW Lymph % (Auto) [place] % (Auto) Lymph # (Auto) [place] # (Auto) Seg Neutrophils % Seg Neuts % (Manual) Lymphocytes % (Manual) Monocytes % (Manual) Nucleated RBC % Seg Neutrophils # Seg Neutrophils # Man Lymphocytes # (Manual) Monocytes # (Manual) PT INR D-Dimer ABG pH 7.088 L POC ABG pCO2 69.1 H POC ABG pO2 35.2 L ABG pO2 ABG HCO3 ABG Base Excess ABG Hemoglobin 10.9 L ABG Oxyhemoglobin 57.1 L ABG Sodium ABG Potassium 7.0 H ABG Chloride 108.0 H ABG Glucose Carboxyhemoglobin 0.4 L Sodium Potassium 8.1 H* Chloride Carbon Dioxide 17 L BUN 38 H Creatinine 3.7 H Glucose POC Glucose Lactic Acid Calcium 8.0 L Phosphorus 8.00 H Ferritin Total Bilirubin Direct Bilirubin 0.5 H AST 3696 H ALT 3331 H Lactate Dehydrogenase Total Creatine Kinase Troponin T Total Protein Albumin 3.5 L Triglycerides Arterial Blood Glucose Arterial Blood Ionized Calcium 4.4 L Urine pH Urine Creatinine Salicylates Acetaminophen Coronavirus (PCR) 09/08/20 09/08/20 09/08/20 16:31 22:36 Unknown WBC RBC Hgb Hct MCHC RDW Lymph % (Auto) [place] % (Auto) Lymph # (Auto) [place] # (Auto) Seg Neutrophils % Seg Neuts % (Manual) Lymphocytes % (Manual) Monocytes % (Manual) Nucleated RBC % Seg Neutrophils # Seg Neutrophils # Man Lymphocytes # (Manual) Monocytes # (Manual) PT INR D-Dimer ABG pH POC ABG pCO2 POC ABG pO2 ABG pO2 ABG HCO3 ABG Base Excess ABG Hemoglobin ABG Oxyhemoglobin ABG Sodium ABG Potassium ABG Chloride ABG Glucose Carboxyhemoglobin Sodium Potassium 5.3 H D Chloride Carbon Dioxide BUN Creatinine Glucose POC Glucose 158 H Lactic Acid Calcium Phosphorus Ferritin Total Bilirubin Direct Bilirubin AST ALT Lactate Dehydrogenase Total Creatine Kinase Troponin T Total Protein Albumin Triglycerides Arterial Blood Glucose Arterial Blood Ionized Calcium Urine pH Urine Creatinine Salicylates Acetaminophen Coronavirus (PCR) Positive A 09/08/20 09/08/20 09/08/20 Unknown Unknown Unknown WBC 18.4 H RBC Hgb 10.1 L Hct 32.0 L MCHC RDW 18.2 H Lymph % (Auto) [place] % (Auto) Lymph # (Auto) [place] # (Auto) Seg Neutrophils % Seg Neuts % (Manual) 81.0 H Lymphocytes % (Manual) 2.0 L Monocytes % (Manual) Nucleated RBC % 1.0 H Seg Neutrophils # Seg Neutrophils # Man 14.9 H Lymphocytes # (Manual) 0.4 L Monocytes # (Manual) 1.1 H PT 21.2 H INR 1.83 H D-Dimer ABG pH POC ABG pCO2 POC ABG pO2 ABG pO2 ABG HCO3 ABG Base Excess ABG Hemoglobin ABG Oxyhemoglobin ABG Sodium ABG Potassium ABG Chloride ABG Glucose Carboxyhemoglobin Sodium Potassium Chloride Carbon Dioxide BUN Creatinine Glucose POC Glucose Lactic Acid Calcium Phosphorus Ferritin Total Bilirubin Direct Bilirubin AST ALT Lactate Dehydrogenase Total Creatine Kinase Troponin T Total Protein Albumin Triglycerides Arterial Blood Glucose Arterial Blood Ionized Calcium Urine pH Urine Creatinine 182.4 H Salicylates Acetaminophen Coronavirus (PCR) 09/09/20 09/09/20 09/09/20 03:14 04:20 04:20 WBC 16.3 H RBC 3.12 L Hgb 8.6 L Hct 26.8 L MCHC RDW 18.2 H Lymph % (Auto) 6.3 L [place] % (Auto) 8.8 H Lymph # (Auto) 1.0 L [place] # (Auto) 1.4 H Seg Neutrophils % 84.5 H Seg Neuts % (Manual) Lymphocytes % (Manual) Monocytes % (Manual) Nucleated RBC % Seg Neutrophils # 13.7 H Seg Neutrophils # Man Lymphocytes # (Manual) Monocytes # (Manual) PT INR D-Dimer ABG pH POC ABG pCO2 POC ABG pO2 148.5 H ABG pO2 ABG HCO3 ABG Base Excess ABG Hemoglobin 9.4 L ABG Oxyhemoglobin 98.8 H ABG Sodium 134.8 L ABG Potassium 5.0 H ABG Chloride ABG Glucose 222 H Carboxyhemoglobin 0.1 L Sodium Potassium 5.2 H Chloride Carbon Dioxide BUN 47 H Creatinine 4.3 H Glucose 211 H POC Glucose Lactic Acid Calcium 7.4 L Phosphorus Ferritin Total Bilirubin Direct Bilirubin AST 01268 H ALT 6206 H Lactate Dehydrogenase Total Creatine Kinase Troponin T Total Protein 5.6 L Albumin 3.0 L Triglycerides Arterial Blood Glucose 222 H Arterial Blood Ionized Calcium 3.8 L Urine pH Urine Creatinine Salicylates Acetaminophen Coronavirus (PCR) 09/09/20 09/09/20 09/09/20 10:00 12:23 18:22 WBC RBC Hgb Hct MCHC RDW Lymph % (Auto) [place] % (Auto) Lymph # (Auto) [place] # (Auto) Seg Neutrophils % Seg Neuts % (Manual) Lymphocytes % (Manual) Monocytes % (Manual) Nucleated RBC % Seg Neutrophils # Seg Neutrophils # Man Lymphocytes # (Manual) Monocytes # (Manual) PT 21.7 H INR 1.90 H D-Dimer ABG pH POC ABG pCO2 POC ABG pO2 ABG pO2 ABG HCO3 ABG Base Excess ABG Hemoglobin ABG Oxyhemoglobin ABG Sodium ABG Potassium ABG Chloride ABG Glucose Carboxyhemoglobin Sodium Potassium Chloride Carbon Dioxide BUN Creatinine Glucose POC Glucose 216 H 211 H Lactic Acid Calcium Phosphorus Ferritin Total Bilirubin Direct Bilirubin AST ALT Lactate Dehydrogenase Total Creatine Kinase Troponin T Total Protein Albumin Triglycerides Arterial Blood Glucose Arterial Blood Ionized Calcium Urine pH Urine Creatinine Salicylates Acetaminophen Coronavirus (PCR) 09/10/20 09/10/20 09/10/20 04:00 04:05 04:05 WBC 15.0 H RBC 3.06 L Hgb 8.6 L Hct 25.8 L MCHC RDW 18.0 H Lymph % (Auto) [place] % (Auto) Lymph # (Auto) [place] # (Auto) Seg Neutrophils % Seg Neuts % (Manual) 86.0 H Lymphocytes % (Manual) 6.0 L Monocytes % (Manual) 8.0 H Nucleated RBC % Seg Neutrophils # Seg Neutrophils # Man 12.9 H Lymphocytes # (Manual) 0.9 L Monocytes # (Manual) 1.2 H PT 18.4 H INR 1.54 H D-Dimer ABG pH POC ABG pCO2 POC ABG pO2 ABG pO2 ABG HCO3 ABG Base Excess ABG Hemoglobin ABG Oxyhemoglobin ABG Sodium ABG Potassium ABG Chloride ABG Glucose Carboxyhemoglobin Sodium 134 L Potassium Chloride 93.7 L Carbon Dioxide BUN 46 H Creatinine 3.6 H Glucose 275 H POC Glucose Lactic Acid Calcium 7.7 L Phosphorus Ferritin Total Bilirubin 1.30 H Direct Bilirubin AST 5899 H ALT 6440 H Lactate Dehydrogenase Total Creatine Kinase Troponin T Total Protein 5.9 L Albumin 3.3 L Triglycerides Arterial Blood Glucose Arterial Blood Ionized Calcium Urine pH Urine Creatinine Salicylates Acetaminophen Coronavirus (PCR) 09/10/20 09/10/20 09/10/20 04:35 12:06 17:42 WBC RBC Hgb Hct MCHC RDW Lymph % (Auto) [place] % (Auto) Lymph # (Auto) [place] # (Auto) Seg Neutrophils % Seg Neuts % (Manual) Lymphocytes % (Manual) Monocytes % (Manual) Nucleated RBC % Seg Neutrophils # Seg Neutrophils # Man Lymphocytes # (Manual) Monocytes # (Manual) PT INR D-Dimer ABG pH 7.464 H POC ABG pCO2 POC ABG pO2 ABG pO2 ABG HCO3 ABG Base Excess ABG Hemoglobin 9.9 L ABG Oxyhemoglobin ABG Sodium 131.6 L ABG Potassium ABG Chloride 97.0 L ABG Glucose 281 H Carboxyhemoglobin 0.1 L Sodium Potassium Chloride Carbon Dioxide BUN Creatinine Glucose POC Glucose 298 H 340 H Lactic Acid Calcium Phosphorus Ferritin Total Bilirubin Direct Bilirubin AST ALT Lactate Dehydrogenase Total Creatine Kinase Troponin T Total Protein Albumin Triglycerides Arterial Blood Glucose 281 H Arterial Blood Ionized Calcium 3.9 L Urine pH Urine Creatinine Salicylates Acetaminophen Coronavirus (PCR) 09/10/20 09/11/20 09/11/20 23:07 04:44 05:17 WBC RBC Hgb Hct MCHC RDW Lymph % (Auto) [place] % (Auto) Lymph # (Auto) [place] # (Auto) Seg Neutrophils % Seg Neuts % (Manual) Lymphocytes % (Manual) Monocytes % (Manual) Nucleated RBC % Seg Neutrophils # Seg Neutrophils # Man Lymphocytes # (Manual) Monocytes # (Manual) PT 16.9 H INR 1.39 H D-Dimer ABG pH POC ABG pCO2 POC ABG pO2 ABG pO2 ABG HCO3 ABG Base Excess ABG Hemoglobin ABG Oxyhemoglobin ABG Sodium ABG Potassium ABG Chloride ABG Glucose Carboxyhemoglobin Sodium Potassium Chloride Carbon Dioxide BUN Creatinine Glucose POC Glucose 367 H 416 H Lactic Acid Calcium Phosphorus Ferritin Total Bilirubin Direct Bilirubin AST ALT Lactate Dehydrogenase Total Creatine Kinase Troponin T Total Protein Albumin Triglycerides Arterial Blood Glucose Arterial Blood Ionized Calcium Urine pH Urine Creatinine Salicylates Acetaminophen Coronavirus (PCR) 09/11/20 09/11/20 09/11/20 05:40 12:01 17:50 WBC RBC Hgb Hct MCHC RDW Lymph % (Auto) [place] % (Auto) Lymph # (Auto) [place] # (Auto) Seg Neutrophils % Seg Neuts % (Manual) Lymphocytes % (Manual) Monocytes % (Manual) Nucleated RBC % Seg Neutrophils # Seg Neutrophils # Man Lymphocytes # (Manual) Monocytes # (Manual) PT INR D-Dimer ABG pH 7.543 H POC ABG pCO2 POC ABG pO2 ABG pO2 112.1 H ABG HCO3 28.1 H ABG Base Excess 5.4 H ABG Hemoglobin 8.4 L ABG Oxyhemoglobin ABG Sodium ABG Potassium ABG Chloride ABG Glucose Carboxyhemoglobin Sodium Potassium Chloride Carbon Dioxide BUN Creatinine Glucose POC Glucose 418 H 404 H Lactic Acid Calcium Phosphorus Ferritin Total Bilirubin Direct Bilirubin AST ALT Lactate Dehydrogenase Total Creatine Kinase Troponin T Total Protein Albumin Triglycerides Arterial Blood Glucose Arterial Blood Ionized Calcium Urine pH Urine Creatinine Salicylates Acetaminophen Coronavirus (PCR) 09/11/20 09/11/20 09/12/20 23:10 23:43 03:15 WBC RBC Hgb Hct MCHC RDW Lymph % (Auto) [place] % (Auto) Lymph # (Auto) [place] # (Auto) Seg Neutrophils % Seg Neuts % (Manual) Lymphocytes % (Manual) Monocytes % (Manual) Nucleated RBC % Seg Neutrophils # Seg Neutrophils # Man Lymphocytes # (Manual) Monocytes # (Manual) PT INR D-Dimer ABG pH POC ABG pCO2 POC ABG pO2 ABG pO2 ABG HCO3 ABG Base Excess ABG Hemoglobin ABG Oxyhemoglobin ABG Sodium ABG Potassium ABG Chloride ABG Glucose Carboxyhemoglobin Sodium 135 L Potassium Chloride 92.3 L Carbon Dioxide BUN 62 H Creatinine 3.7 H Glucose 406 H POC Glucose 372 H 359 H Lactic Acid Calcium Phosphorus Ferritin Total Bilirubin Direct Bilirubin AST 687 H ALT 3701 H Lactate Dehydrogenase Total Creatine Kinase Troponin T Total Protein 5.8 L Albumin 3.1 L Triglycerides Arterial Blood Glucose Arterial Blood Ionized Calcium Urine pH Urine Creatinine Salicylates Acetaminophen Coronavirus (PCR) 09/12/20 09/12/20 09/12/20 03:18 04:00 04:00 WBC 13.7 H RBC 3.30 L Hgb 9.3 L Hct 27.6 L MCHC RDW 17.5 H Lymph % (Auto) [place] % (Auto) Lymph # (Auto) [place] # (Auto) Seg Neutrophils % Seg Neuts % (Manual) 76.0 H Lymphocytes % (Manual) 11.0 L Monocytes % (Manual) 13.0 H Nucleated RBC % Seg Neutrophils # Seg Neutrophils # Man 10.4 H Lymphocytes # (Manual) Monocytes # (Manual) 1.8 H PT 16.1 H INR 1.31 H D-Dimer ABG pH 7.558 H POC ABG pCO2 POC ABG pO2 74.7 L ABG pO2 ABG HCO3 ABG Base Excess ABG Hemoglobin 9.7 L ABG Oxyhemoglobin ABG Sodium 132.4 L ABG Potassium ABG Chloride 95.0 L ABG Glucose 437 H Carboxyhemoglobin Sodium Potassium Chloride Carbon Dioxide BUN Creatinine Glucose POC Glucose Lactic Acid Calcium Phosphorus Ferritin Total Bilirubin Direct Bilirubin AST ALT Lactate Dehydrogenase Total Creatine Kinase Troponin T Total Protein Albumin Triglycerides Arterial Blood Glucose 437 H Arterial Blood Ionized Calcium 4.3 L Urine pH Urine Creatinine Salicylates Acetaminophen Coronavirus (PCR) 09/12/20 09/12/20 09/12/20 04:21 05:20 06:37 WBC RBC Hgb Hct MCHC RDW Lymph % (Auto) [place] % (Auto) Lymph # (Auto) [place] # (Auto) Seg Neutrophils % Seg Neuts % (Manual) Lymphocytes % (Manual) Monocytes % (Manual) Nucleated RBC % Seg Neutrophils # Seg Neutrophils # Man Lymphocytes # (Manual) Monocytes # (Manual) PT INR D-Dimer ABG pH POC ABG pCO2 POC ABG pO2 ABG pO2 ABG HCO3 ABG Base Excess ABG Hemoglobin ABG Oxyhemoglobin ABG Sodium ABG Potassium ABG Chloride ABG Glucose Carboxyhemoglobin Sodium Potassium Chloride Carbon Dioxide BUN Creatinine Glucose POC Glucose 417 H 397 H 370 H Lactic Acid Calcium Phosphorus Ferritin Total Bilirubin Direct Bilirubin AST ALT Lactate Dehydrogenase Total Creatine Kinase Troponin T Total Protein Albumin Triglycerides Arterial Blood Glucose Arterial Blood Ionized Calcium Urine pH Urine Creatinine Salicylates Acetaminophen Coronavirus (PCR) 09/12/20 09/12/20 09/12/20 11:56 17:14 21:52 WBC RBC Hgb Hct MCHC RDW Lymph % (Auto) [place] % (Auto) Lymph # (Auto) [place] # (Auto) Seg Neutrophils % Seg Neuts % (Manual) Lymphocytes % (Manual) Monocytes % (Manual) Nucleated RBC % Seg Neutrophils # Seg Neutrophils # Man Lymphocytes # (Manual) Monocytes # (Manual) PT INR D-Dimer ABG pH POC ABG pCO2 POC ABG pO2 ABG pO2 ABG HCO3 ABG Base Excess ABG Hemoglobin ABG Oxyhemoglobin ABG Sodium ABG Potassium ABG Chloride ABG Glucose Carboxyhemoglobin Sodium Potassium Chloride Carbon Dioxide BUN Creatinine Glucose POC Glucose 341 H 325 H 285 H Lactic Acid Calcium Phosphorus Ferritin Total Bilirubin Direct Bilirubin AST ALT Lactate Dehydrogenase Total Creatine Kinase Troponin T Total Protein Albumin Triglycerides Arterial Blood Glucose Arterial Blood Ionized Calcium Urine pH Urine Creatinine Salicylates Acetaminophen Coronavirus (PCR) 09/12/20 09/12/20 09/12/20 23:39 Unknown Unknown WBC RBC Hgb Hct MCHC RDW Lymph % (Auto) [place] % (Auto) Lymph # (Auto) [place] # (Auto) Seg Neutrophils % Seg Neuts % (Manual) Lymphocytes % (Manual) Monocytes % (Manual) Nucleated RBC % Seg Neutrophils # Seg Neutrophils # Man Lymphocytes # (Manual) Monocytes # (Manual) PT INR D-Dimer ABG pH POC ABG pCO2 POC ABG pO2 ABG pO2 ABG HCO3 ABG Base Excess ABG Hemoglobin ABG Oxyhemoglobin ABG Sodium ABG Potassium ABG Chloride ABG Glucose Carboxyhemoglobin Sodium 135 L Potassium Chloride 92.2 L Carbon Dioxide BUN 65 H Creatinine 3.5 H Glucose 418 H POC Glucose 338 H Lactic Acid Calcium Phosphorus Ferritin Total Bilirubin Direct Bilirubin AST 553 H ALT 3453 H Lactate Dehydrogenase Total Creatine Kinase Troponin T Total Protein 5.9 L Albumin 3.0 L Triglycerides 220 H Arterial Blood Glucose Arterial Blood Ionized Calcium Urine pH Urine Creatinine Salicylates Acetaminophen Coronavirus (PCR) 09/13/20 09/13/20 09/13/20 04:47 05:24 10:50 WBC RBC Hgb Hct MCHC RDW Lymph % (Auto) [place] % (Auto) Lymph # (Auto) [place] # (Auto) Seg Neutrophils % Seg Neuts % (Manual) Lymphocytes % (Manual) Monocytes % (Manual) Nucleated RBC % Seg Neutrophils # Seg Neutrophils # Man Lymphocytes # (Manual) Monocytes # (Manual) PT INR D-Dimer ABG pH 7.571 H POC ABG pCO2 POC ABG pO2 69.0 L ABG pO2 ABG HCO3 ABG Base Excess ABG Hemoglobin 10.1 L ABG Oxyhemoglobin 93.2 L ABG Sodium 134.0 L ABG Potassium ABG Chloride ABG Glucose 365 H Carboxyhemoglobin 0.4 L Sodium Potassium Chloride 96.6 L Carbon Dioxide 32 H BUN 76 H Creatinine 3.1 H Glucose 395 H POC Glucose 329 H Lactic Acid Calcium Phosphorus Ferritin Total Bilirubin Direct Bilirubin AST ALT Lactate Dehydrogenase Total Creatine Kinase Troponin T Total Protein Albumin Triglycerides Arterial Blood Glucose 365 H Arterial Blood Ionized Calcium Urine pH Urine Creatinine Salicylates Acetaminophen Coronavirus (PCR) 09/13/20 11:39 WBC RBC Hgb Hct MCHC RDW Lymph % (Auto) [place] % (Auto) Lymph # (Auto) [place] # (Auto) Seg Neutrophils % Seg Neuts % (Manual) Lymphocytes % (Manual) Monocytes % (Manual) Nucleated RBC % Seg Neutrophils # Seg Neutrophils # Man Lymphocytes # (Manual) Monocytes # (Manual) PT INR D-Dimer ABG pH POC ABG pCO2 POC ABG pO2 ABG pO2 ABG HCO3 ABG Base Excess ABG Hemoglobin ABG Oxyhemoglobin ABG Sodium ABG Potassium ABG Chloride ABG Glucose Carboxyhemoglobin Sodium Potassium Chloride Carbon Dioxide BUN Creatinine Glucose POC Glucose 344 H Lactic Acid Calcium Phosphorus Ferritin Total Bilirubin Direct Bilirubin AST ALT Lactate Dehydrogenase Total Creatine Kinase Troponin T Total Protein Albumin Triglycerides Arterial Blood Glucose Arterial Blood Ionized Calcium Urine pH Urine Creatinine Salicylates Acetaminophen Coronavirus (PCR)
[2020-09-13] MEDS: SENNOSIDES/DOCUSATE SODIUM 8.6/50 MG TAB PO SCH ×2 (13:19→22:00)
--- NOTE | 2020-09-13 14:48 | Progress Note ---
Assessment and Plan Cultures: Blood culture 09/07/2020 no growth SARS CoV2 PCR positive 09/07/2020 urine culture: No growth HIV, hepatitis panel: Negative Assessment: 65 years old male with unknown medical history, morbidly obese, brought to the ED by EMS on 09/07/2020 secondary to passing out, found in out of hospital cardiac arrest status post resuscitation, intubated in the field: #[id number] cardiac arrest/shock #Bilateral pneumonia secondary to COVID-19 infection. Inflammatory markers elevated. D-dimer was 8315. apparently, patient was recently hospitalized at the [place] for COVID-19 prior to admission here. Not a candidate for remdesivir due to hepatic and renal failure #Acute hypoxic respiratory failure: on the vent. #Acute renal failure: Creatinine elevated. Likely secondary to cardiac arrest/COVID-19 infection #Shock liver, transaminitis: Viral hepatitis panel negative. #Acute Encephalopathy: Initial GCS 3, noted myoclonic jerking.? Anoxic brain injury. Appreciate neurology evaluation. Recs: -continue off abx -Poor prognosis Marisol Stock MD, FACP [facility] ([facility] O: [phone] F: [phone] Subjective Date of service: 09/13/20 Principal diagnosis: Abnormal LFTs, s/p cardiac arrest, acute kidney injury with ATN Interval history: Afebrile. Remains on the vent. Unresponsive. Objective - Exam Narrative Exam: Physical Exam (reviewed in chart to minimize risk of transmission) Constitutional: deferred Head, Ears, Nose: deferred Eyes: deferred Neck: deferred Oral: deferred Cardiovascular: deferred Respiratory: deferred GI: deferred Musculoskeletal: deferred Skin: deferred Hem/Lymphatic: deferred Psych: deferred Neurological: deferred - Constitutional Vitals: Vital Signs Temp Pulse Resp BP Pulse Ox 97.8 F 64 30 H 112/47 96 09/13/20 10:00 09/13/20 13:01 09/13/20 13:01 09/13/20 13:01 09/13/20 13:01 Temperature -Last 24 Hours Temperature 97.8 F Temperature 98.9 F Temperature 98.8 F Temperature 98.9 F Temperature 98.6 F Temperature 98.9 F Temperature 97.4 F - Labs CBC & Chem 7: 09/12/20 04:00 09/13/20 10:50 Labs: Abnormal lab results 09/12/20 09/12/20 09/12/20 Range/Units 17:14 21:52 23:39 ABG pH (7.320-7.450) POC ABG pO2 (83-108) mmHg ABG Hemoglobin (12.0-17.5) ABG Oxyhemoglobin (94-98) ABG Sodium (136.0-145.0) mmol/L ABG Glucose (65-95) mg/dL Carboxyhemoglobin (0.5-1.5) Chloride (98-107) mmol/L Carbon Dioxide (22-30) mmol/L BUN (9-20) mg/dL Creatinine (0.8-1.3) mg/dL Glucose (75-100) mg/dL POC Glucose 325 H 285 H 338 H (70-105) mg/dL Arterial Blood Glucose (65-95) mg/dL 09/13/20 09/13/20 09/13/20 Range/Units 04:47 05:24 10:50 ABG pH 7.571 H (7.320-7.450) POC ABG pO2 69.0 L (83-108) mmHg ABG Hemoglobin 10.1 L (12.0-17.5) ABG Oxyhemoglobin 93.2 L (94-98) ABG Sodium 134.0 L (136.0-145.0) mmol/L ABG Glucose 365 H (65-95) mg/dL Carboxyhemoglobin 0.4 L (0.5-1.5) Chloride 96.6 L (98-107) mmol/L Carbon Dioxide 32 H (22-30) mmol/L BUN 76 H (9-20) mg/dL Creatinine 3.1 H (0.8-1.3) mg/dL Glucose 395 H (75-100) mg/dL POC Glucose 329 H (70-105) mg/dL Arterial Blood Glucose 365 H (65-95) mg/dL 09/13/20 Range/Units 11:39 ABG pH (7.320-7.450) POC ABG pO2 (83-108) mmHg ABG Hemoglobin (12.0-17.5) ABG Oxyhemoglobin (94-98) ABG Sodium (136.0-145.0) mmol/L ABG Glucose (65-95) mg/dL Carboxyhemoglobin (0.5-1.5) Chloride (98-107) mmol/L Carbon Dioxide (22-30) mmol/L BUN (9-20) mg/dL Creatinine (0.8-1.3) mg/dL Glucose (75-100) mg/dL POC Glucose 344 H (70-105) mg/dL Arterial Blood Glucose (65-95) mg/dL
--- NOTE | 2020-09-13 18:52 | Progress Note ---
Assessment and Plan Impression: * Nonoliguric RYAN secondary to ATN * Severe hyperkalemia - resolved * COVID 19 PNA * s/p OOH cardiac arrest * Acute hypoxic respiratory failure * Seizure activity * Anemia Plan: * Patient is s/p emergent HD on Friday (hyperK) and Friday * UOP 3.2L * Please check labs daily * Strict I/O * No acute indication for hemodialysis at this time - reasonable UOP with down trending Cr * Will reassess need for hemodialysis daily * Keep MAP > 65 * Vent management per CCM * Steroids per primary team/ID * Dose medications for renal function * Avoid potential nephrotoxins * Prognosis is guarded Subjective Date of service: 09/13/20 Principal diagnosis: Abnormal LFTs, s/p cardiac arrest, acute kidney injury with ATN Interval history: UOP 1.6 L Remains intubated Patient followed for his renal issues Nursing, interdisciplinary and consult notes were reviewed Vitals, input and output, medications and labs were reviewed Objective - Exam Narrative Exam: Deferred for PPE conservation and to prevent spread of infection - Vital Signs Vital signs: Vital Signs - 12hr 09/13/20 09/13/20 09/13/20 07:00 07:11 07:21 Temperature Pulse Rate 57 L 57 L 56 L Respiratory 30 H 30 H 30 H Rate Blood Pressure 123/60 123/60 123/60 O2 Sat by Pulse 95 98 98 Oximetry 09/13/20 09/13/20 09/13/20 07:31 07:41 07:51 Temperature Pulse Rate 58 L 56 L 56 L Respiratory 30 H 30 H 30 H Rate Blood Pressure 125/57 125/57 125/57 O2 Sat by Pulse 95 98 98 Oximetry 09/13/20 09/13/20 09/13/20 08:00 08:01 08:11 Temperature 98.9 F Pulse Rate 58 L 56 L 56 L Respiratory 30 H 30 H Rate Blood Pressure 125/57 117/55 117/55 O2 Sat by Pulse 95 96 98 Oximetry 09/13/20 09/13/20 09/13/20 08:21 08:30 08:41 Temperature Pulse Rate 58 L 62 62 Respiratory 27 H 30 H 30 H Rate Blood Pressure 117/55 128/59 128/59 O2 Sat by Pulse 97 93 96 Oximetry 09/13/20 09/13/20 09/13/20 08:51 09:00 09:11 Temperature Pulse Rate 73 70 75 Respiratory 21 27 H 29 H Rate Blood Pressure 128/59 128/59 O2 Sat by Pulse 92 92 96 Oximetry 09/13/20 09/13/20 09/13/20 09:21 09:31 09:41 Temperature Pulse Rate 71 68 63 Respiratory 30 H 30 H 30 H Rate Blood Pressure 138/57 113/59 113/59 O2 Sat by Pulse 97 96 98 Oximetry 09/13/20 09/13/20 09/13/20 09:51 10:00 10:01 Temperature 97.8 F Pulse Rate 62 63 Respiratory 30 H 30 H Rate Blood Pressure 113/59 104/49 O2 Sat by Pulse 99 98 Oximetry 09/13/20 09/13/20 09/13/20 10:11 10:21 10:31 Temperature Pulse Rate 59 L 58 L 57 L Respiratory 30 H 30 H 30 H Rate Blood Pressure 104/49 104/49 108/52 O2 Sat by Pulse 99 98 96 Oximetry 09/13/20 09/13/20 09/13/20 10:41 10:51 11:01 Temperature Pulse Rate 56 L 56 L 58 L Respiratory 30 H 30 H 30 H Rate Blood Pressure 108/52 108/52 107/52 O2 Sat by Pulse 98 98 96 Oximetry 09/13/20 09/13/20 09/13/20 11:07 11:11 11:21 Temperature Pulse Rate 63 57 L 57 L Respiratory 30 H 30 H Rate Blood Pressure 113/59 107/52 107/52 O2 Sat by Pulse 98 98 98 Oximetry 09/13/20 09/13/20 09/13/20 11:30 11:41 11:51 Temperature Pulse Rate 60 56 L 56 L Respiratory 30 H 30 H 30 H Rate Blood Pressure 110/53 110/53 110/53 O2 Sat by Pulse 95 98 98 Oximetry 09/13/20 09/13/20 09/13/20 12:00 12:01 12:11 Temperature Pulse Rate 55 L 55 L 54 L Respiratory 30 H 30 H Rate Blood Pressure 115/52 115/52 O2 Sat by Pulse 95 98 Oximetry 09/13/20 09/13/20 09/13/20 12:21 12:31 12:41 Temperature Pulse Rate 56 L 55 L 56 L Respiratory 30 H 30 H 30 H Rate Blood Pressure 115/52 114/55 114/55 O2 Sat by Pulse 97 94 97 Oximetry 09/13/20 09/13/20 09/13/20 12:51 13:01 13:11 Temperature Pulse Rate 60 64 64 Respiratory 30 H 30 H 19 Rate Blood Pressure 114/55 112/47 112/47 O2 Sat by Pulse 97 96 95 Oximetry 09/13/20 09/13/20 09/13/20 13:21 13:30 13:41 Temperature Pulse Rate 67 66 64 Respiratory 31 H 29 H 29 H Rate Blood Pressure 112/47 106/54 106/54 O2 Sat by Pulse 96 91 98 Oximetry 09/13/20 09/13/20 09/13/20 13:51 14:01 14:11 Temperature Pulse Rate 63 63 62 Respiratory 30 H 30 H 30 H Rate Blood Pressure 106/54 110/52 110/52 O2 Sat by Pulse 97 96 98 Oximetry 09/13/20 09/13/20 09/13/20 14:21 14:30 14:41 Temperature Pulse Rate 63 60 61 Respiratory 30 H 30 H 30 H Rate Blood Pressure 110/52 112/56 112/56 O2 Sat by Pulse 98 95 98 Oximetry 09/13/20 09/13/20 09/13/20 14:51 15:00 15:11 Temperature Pulse Rate 61 60 61 Respiratory 30 H 30 H 30 H Rate Blood Pressure 112/56 114/57 114/57 O2 Sat by Pulse 98 95 98 Oximetry 09/13/20 09/13/20 09/13/20 15:21 15:30 15:41 Temperature Pulse Rate 61 66 63 Respiratory 30 H 30 H 30 H Rate Blood Pressure 114/57 106/51 106/51 O2 Sat by Pulse 98 95 98 Oximetry 09/13/20 09/13/20 09/13/20 15:51 16:00 16:10 Temperature 98.4 F Pulse Rate 64 63 64 Respiratory 30 H 30 H Rate Blood Pressure 106/51 113/54 112/47 O2 Sat by Pulse 97 95 96 Oximetry 09/13/20 09/13/20 09/13/20 16:11 16:21 16:30 Temperature Pulse Rate 65 66 64 Respiratory 30 H 28 H 30 H Rate Blood Pressure 113/54 113/54 111/53 O2 Sat by Pulse 97 98 95 Oximetry 09/13/20 09/13/20 09/13/20 16:41 16:51 17:00 Temperature Pulse Rate 65 66 66 Respiratory 30 H 18 29 H Rate Blood Pressure 111/53 111/53 102/49 O2 Sat by Pulse 98 96 94 Oximetry 09/13/20 09/13/20 09/13/20 17:11 17:21 17:31 Temperature Pulse Rate 65 65 67 Respiratory 30 H 30 H 30 H Rate Blood Pressure 102/49 102/49 92/44 O2 Sat by Pulse 98 99 95 Oximetry 09/13/20 09/13/20 09/13/20 17:41 17:51 18:01 Temperature Pulse Rate 68 65 65 Respiratory 15 27 H 30 H Rate Blood Pressure 92/44 92/44 116/55 O2 Sat by Pulse 98 98 94 Oximetry 09/13/20 18:11 Temperature Pulse Rate 67 Respiratory 0 L Rate Blood Pressure 116/55 O2 Sat by Pulse 97 Oximetry - Lab 09/12/20 04:00 09/13/20 10:50 Most recent lab results ABG pH 7.571 (7.320-7.450) H 09/13/20 04:47 ABG pCO2 33.4 mm Hg 09/11/20 05:40 ABG pO2 112.1 mm Hg (80.0-90.0) H 09/11/20 05:40 ABG HCO3 28.1 mmol/L (20.0-26.0) H 09/11/20 05:40 ABG O2 Saturation 98.4 % (95.0-99.0) 09/11/20 05:40 Calcium 8.7 mg/dL (8.4-10.2) 09/13/20 10:50 Phosphorus 8.00 mg/dL (2.5-4.5) H 09/08/20 12:02 Magnesium 1.80 mg/dL (1.7-2.3) 09/08/20 12:02 Urine Creatinine 182.4 mg/dL (0.1-20.0) H 09/08/20 Unknown Urine Sodium 40 mmol/L 09/08/20 Unknown Medications & Allergies - Medications Allergies/Adverse Reactions: Allergies Unable to Assess Allergy (Verified 09/07/20 13:43) intubated Home Medications: Home Medications Medication Instructions Recorded Confirmed Last Taken Type Albuterol Sulfate 60 mcg IH PRN 09/11/20 09/11/20 Unknown History Cholecalciferol (Vitamin D3) 25 tab PO DAILY 09/11/20 09/11/20 Unknown History Cozaar 25 tab PO DAILY 09/11/20 09/11/20 Unknown History HumaLOG 14 unit SQ AC 09/11/20 09/11/20 Unknown History Hydralazine HCl 50 tab PO TID 09/11/20 09/11/20 Unknown History Isosorbide Dinitrate 30 mg PO DAILY 09/11/20 09/11/20 Unknown History Lantus VIAL 54 units SQ HS 09/11/20 09/11/20 Unknown History Lasix 20 tab PO DAILY 09/11/20 09/11/20 Unknown History Nifedipine 30 tab PO DAILY 09/11/20 09/11/20 Unknown History Active Medications: Generic Name Dose Route Start Last Admin Trade Name Freq PRN Reason Stop Dose Admin Acetaminophen 400 mg 09/10/20 20:50 09/10/20 21:42 Acetaminophen 325 Mg/10.15 Ml Oral Liqd Unit Dose PO 400 mg Q4HR PRN Administration Non Cardiac Pain or Temp>100.5 Lipase/Protease/Amylase 1 each 09/09/20 09:40 Lipase 10,500/Protease 25,000/Amylase 43,750 (Units) Dr Cap FEEDTUBE PRN PRN For Clogged Feeding Tube Fentanyl 50 mcg 09/07/20 13:08 09/07/20 19:26 Fentanyl 100 Mcg/2 Ml Inj IV 50 mcg Q10MIN PRN Administration ANALGESIA Hydrophilic Ointment 1 applic 09/07/20 13:08 Lip Therapy Vaseline TP Q2HR PRN Dry Lips Norepinephrine 4 mg in 250 mls @ 7.5 mls/hr 09/08/20 01:30 09/08/20 12:00 Levophed Drip 4 Mg/Ns 250 Ml IV 0 mcg/min TITR TAYLOR 0 mls/hr Titration Protocol 2 MCG/MIN Lorazepam 100 mg/ Sodium 100 mls @ 1 mls/hr 09/08/20 04:00 09/12/20 17:22 Chloride/ Miscellaneous IV 0 mg/hr Information TITR TAYLOR 0 mls/hr Titration Protocol 1 MG/HR Propofol 1,000 mg in 100 mls @ 4.995 mls/hr 09/08/20 20:00 09/13/20 18:00 Diprivan 10 Mg/Ml IV 20 mcg/kg/min TITR TAYLOR 19.98 mls/hr Titration Protocol 5 MCG/KG/MIN Sodium Chloride 100 mls @ 999 mls/hr 09/09/20 13:36 Nacl 0.9% IV JAYJAY PRN Hypotension Levetiracetam 1,500 mg/ 115 mls @ 400 mls/hr 09/11/20 10:00 09/13/20 09:18 Dextrose IV 400 mls/hr BID TAYLOR Administration Insulin Glargine 20 units 09/12/20 22:00 09/13/20 09:16 Insulin Glargine 100 Units/Ml SUB-Q 20 units BID TAYLOR Administration Insulin Human Lispro 0 unit 09/12/20 12:00 09/13/20 18:11 Insulin Lispro 100 Unit/Ml SUB-Q 6 unit Q6HR TAYLOR Administration Protocol Lansoprazole 30 mg 09/11/20 11:00 09/13/20 09:18 Lansoprazole 30 Mg Solutab FEEDTUBE 30 mg BID TAYLOR Administration Lorazepam 2 mg 09/08/20 00:14 09/10/20 16:04 Lorazepam 2 Mg/Ml Vial IV 2 mg Q4H PRN Administration Seizures Lorazepam 2 mg 09/08/20 03:55 09/11/20 04:13 Lorazepam 2 Mg/Ml Vial IV 2 mg Q10MIN PRN Administration Agitation Multi-Ingred Cream/Lotion/Oil/Oint 1 applic 09/07/20 13:08 Mineral Oil/Petrolatum, White Ophth Oint 3.5 Gm OU Q4HR PRN Dry Eye(s) Multivitamins 5 ml 09/09/20 12:00 09/13/20 09:18 Multivitamins 5 Ml Oral Liquid PO 5 ml QDAY TAYLOR Administration Ondansetron HCl 4 mg 09/07/20 17:55 Ondansetron 4 Mg/2 Ml Inj IV Q8H PRN Nausea And Vomiting Senna/Docusate Sodium 2 tab 09/13/20 11:00 09/13/20 13:19 Sennosides/Docusate Sodium 8.6/50 Mg Tab PO 2 tab BID TAYLOR Administration Simple Syrup 15 ml 09/09/20 09:40 Simple Syrup 15 Ml FEEDTUBE PRN PRN Hypoglycemia Simple Syrup 30 ml 09/09/20 09:40 Simple Syrup 15 Ml FEEDTUBE PRN PRN Hypoglycemia Sodium Bicarbonate 325 mg 09/09/20 09:40 Sodium Bicarbonate 325 Mg Tab FEEDTUBE PRN PRN For Clogged Feeding Tube Sodium Chloride 10 ml 09/07/20 22:00 09/13/20 09:19 Sodium Chloride 0.9% 10 Ml Flush Syringe IV 10 ml BID TAYLOR Administration Sodium Chloride 10 ml 09/07/20 17:55 Sodium Chloride 0.9% 10 Ml Flush Syringe IV PRN PRN LINE FLUSH
[2020-09-13] MEDS: LORazepam 2 MG/ML VIAL IV PRN (23:09)
[2020-09-14] MEDS: LORazepam 2 MG/ML VIAL IV PRN ×4 (03:04→13:36)
[2020-09-14] MEDS: INSULIN LISPRO 100 UNIT/ML SUB-Q SCH ×5 (05:53→23:34)
--- NOTE | 2020-09-14 07:26 | Progress Note ---
Assessment and Plan Critical care statement The high probability OF a clinically significant sudden or life-threatening deterioration of the cardiorespiratory system and endocrine system required my full and direct attention, intervention and postoperative management. The aggregate critical care time was 35 minutes. The time is in addition to time spent performing reported procedures but includes the followin: Data review and interpretation 2: Patient assessment and monitoring of vital signs 3: Documentation 4:: Medication orders and management Assessment and Plan - Patient Problems --Cardiac arrest Current Visit: Yes Status: Acute Plan to address problem: Patient currently intubated and sedated. Admitted into the intensive care unit. Uke Driver has been consulted for evaluation. Acute kidney injury Secondary to ATN-patient getting emergent hemodialysis because of the creatinine and high potassium Hemodialysis as per nephrology Seizure disorder EEG requested Keppra increased to 1500 mg twice daily --Respiratory acidosis Current Visit: Yes Status: Acute Plan to address problem: Secondary to the underlying pneumonia. Will monitor ABG. Patient intubated and weaning in progress --Hyperkalemia Treat High K Emergent HD per Nephrology Hyperkalemia resolved --Coronavirus infection Current Visit: Yes Status: Acute Plan to address problem: Patient placed on isolation precautions. He has been started on empiric IV antibiotics. Patient on IV Decadron No remdesivir because of the kidney injury and the liver injury --Transaminitis Current Visit: Yes Status: Acute Plan to address problem: Possibly secondary to ischemic liver injury Also possible the Covid infection is caused the transaminitis No Tylenol as needed Low-dose ibuprofen if necessary for temperature more than 100 Today CMP is pending. --Morbid obesity Current Visit: Yes Status: Acute Plan to address problem: Patient has poor prognosis --DVT prophylaxis Current Visit: Yes Status: Acute Plan to address problem: Patient placed on subcutaneous Lovenox. --Full code status Current Visit: Yes Status: Acute Plan to address problem: Patient is a full code. Critical care time spent is 35 minutes Subjective Date of service: 09/13/20 Principal diagnosis: Abnormal LFTs, s/p cardiac arrest, acute kidney injury with ATN Interval history: 65-year-old male brought into the emergency room today by EMS for cardiopulmonary arrest. Patient was said to be awaiting a Covid test when he was said to have passed out. CPR was started and also patient was defibrillated once. CPR was continued on the field by EMS and patient had a spontaneous return of circulation. Upon arrival in the emergency room patient had been receiving bag valve mask ventilation through a Dayron airway. He was tachycardic and was subsequently intubated in the emergency room. Most of the history was obtained from the ER staff as patient is already intubated. Work-up in the emergency room today chest x-ray reveals:Bilateral airspace disease which could be related to alveolar edema or infection. CT scan of the head was unremarkable. Patient could not had a CT angiogram because of his size. Patient is being admitted for cardiopulmonary arrest and also possible Covid pneumonia. Day #2 Patient intubated Patient has high transaminitis status. S/p cardiac arrest ACLS and return of spontaneous circulation Hypoxic brain injury in the differential Covid pneumonia Day #3 Patient intubated Unresponsive S/p cardiac arrest Transaminitis-severe Covid pneumonia Day #4 Patient having seizures Patient is intubated Severe transaminitis Covid pneumonia Possible hypoxic brain injury ATN Day #5-09/11/2020 Patient intubated Seizure activity is better EEG requested Weaning in progress Day #6 09/12/2020 Neurology consult requested Less seizures Day #7 09/13/2020 Same condition Weaning in progress Possible anoxic brain injury Objective - Exam Narrative Exam: Patient is intubated - Constitutional Vitals: Vital Signs - 12hr 09/13/20 09/13/20 09/13/20 19:30 19:41 19:51 Temperature Pulse Rate 62 62 63 Pulse Rate [ Apical] Respiratory 22 6 L 30 H Rate Blood Pressure 112/49 112/49 112/49 O2 Sat by Pulse 94 98 98 Oximetry 09/13/20 09/13/20 09/13/20 20:00 20:01 20:11 Temperature 98.9 F Pulse Rate 64 66 63 Pulse Rate [ 64 Apical] Respiratory 20 17 30 H Rate Blood Pressure 101/48 101/48 O2 Sat by Pulse 91 97 Oximetry 09/13/20 09/13/20 09/13/20 20:21 20:30 20:41 Temperature Pulse Rate 64 65 67 Pulse Rate [ Apical] Respiratory 11 L 14 30 H Rate Blood Pressure 101/48 105/47 101/48 O2 Sat by Pulse 97 95 96 Oximetry 09/13/20 09/13/20 09/13/20 20:50 20:51 21:00 Temperature Pulse Rate 65 66 65 Pulse Rate [ Apical] Respiratory 16 27 H Rate Blood Pressure 105/47 101/48 99/46 O2 Sat by Pulse 96 96 94 Oximetry 09/13/20 09/13/20 09/13/20 21:11 21:21 21:30 Temperature Pulse Rate 65 67 68 Pulse Rate [ Apical] Respiratory 14 17 23 Rate Blood Pressure 99/46 99/46 96/44 O2 Sat by Pulse 96 95 94 Oximetry 09/13/20 09/13/20 09/13/20 21:41 21:51 22:00 Temperature Pulse Rate 68 67 68 Pulse Rate [ Apical] Respiratory 11 L 20 21 Rate Blood Pressure 96/44 96/44 96/45 O2 Sat by Pulse 94 95 93 Oximetry 09/13/20 09/13/20 09/13/20 22:11 22:21 22:30 Temperature Pulse Rate 68 66 70 Pulse Rate [ Apical] Respiratory 29 H 20 19 Rate Blood Pressure 96/45 96/45 102/46 O2 Sat by Pulse 95 96 94 Oximetry 09/13/20 09/13/20 09/13/20 22:41 22:51 23:00 Temperature Pulse Rate 70 70 71 Pulse Rate [ Apical] Respiratory 22 26 H 19 Rate Blood Pressure 102/46 102/46 104/48 O2 Sat by Pulse 96 96 93 Oximetry 09/13/20 09/13/20 09/13/20 23:03 23:11 23:18 Temperature Pulse Rate 70 71 71 Pulse Rate [ Apical] Respiratory 22 10 L Rate Blood Pressure 104/48 104/48 104/48 O2 Sat by Pulse 97 95 95 Oximetry 09/13/20 09/13/20 09/13/20 23:21 23:30 23:41 Temperature Pulse Rate 71 70 70 Pulse Rate [ Apical] Respiratory 20 24 27 H Rate Blood Pressure 104/48 97/44 97/44 O2 Sat by Pulse 96 95 97 Oximetry 09/13/20 09/14/20 09/14/20 23:51 00:00 00:11 Temperature 99.4 F Pulse Rate 70 71 70 Pulse Rate [ 73 Apical] Respiratory 25 H 23 23 Rate Blood Pressure 97/44 90/48 90/48 O2 Sat by Pulse 97 96 97 Oximetry 09/14/20 09/14/20 09/14/20 00:21 00:30 00:41 Temperature Pulse Rate 70 72 72 Pulse Rate [ Apical] Respiratory 27 H 31 H 30 H Rate Blood Pressure 90/48 88/52 98/44 O2 Sat by Pulse 97 95 97 Oximetry 09/14/20 09/14/20 09/14/20 00:51 01:00 01:11 Temperature Pulse Rate 71 72 74 Pulse Rate [ Apical] Respiratory 31 H 26 H 30 H Rate Blood Pressure 98/44 104/54 104/54 O2 Sat by Pulse 97 95 97 Oximetry 09/14/20 09/14/20 09/14/20 01:21 01:30 01:41 Temperature Pulse Rate 73 74 74 Pulse Rate [ Apical] Respiratory 28 H 29 H 28 H Rate Blood Pressure 104/54 107/52 107/52 O2 Sat by Pulse 97 95 97 Oximetry 09/14/20 09/14/20 09/14/20 01:51 02:00 02:11 Temperature Pulse Rate 74 73 74 Pulse Rate [ Apical] Respiratory 20 30 H 24 Rate Blood Pressure 107/52 111/48 111/48 O2 Sat by Pulse 97 95 97 Oximetry 09/14/20 09/14/20 09/14/20 02:21 02:31 02:41 Temperature Pulse Rate 74 75 75 Pulse Rate [ Apical] Respiratory 23 31 H 25 H Rate Blood Pressure 111/48 96/45 96/45 O2 Sat by Pulse 97 95 97 Oximetry 09/14/20 09/14/20 09/14/20 02:51 03:01 03:11 Temperature Pulse Rate 76 77 78 Pulse Rate [ Apical] Respiratory 30 H 27 H 23 Rate Blood Pressure 96/45 96/45 108/46 O2 Sat by Pulse 97 95 96 Oximetry 09/14/20 09/14/20 09/14/20 03:21 03:30 03:41 Temperature Pulse Rate 77 78 80 Pulse Rate [ Apical] Respiratory 30 H 31 H 20 Rate Blood Pressure 108/46 100/48 100/48 O2 Sat by Pulse 96 95 95 Oximetry 09/14/20 09/14/20 09/14/20 03:51 04:00 04:01 Temperature 100.6 F H Pulse Rate 93 H 80 97 H Pulse Rate [ 79 Apical] Respiratory 31 H 30 H 32 H Rate Blood Pressure 100/48 129/63 O2 Sat by Pulse 94 94 Oximetry 09/14/20 09/14/20 09/14/20 04:11 04:21 04:31 Temperature Pulse Rate 87 87 86 Pulse Rate [ Apical] Respiratory 30 H 30 H 30 H Rate Blood Pressure 129/63 129/63 116/49 O2 Sat by Pulse 95 95 95 Oximetry 09/14/20 09/14/20 09/14/20 04:41 04:51 05:00 Temperature Pulse Rate 84 84 84 Pulse Rate [ Apical] Respiratory 30 H 30 H 30 H Rate Blood Pressure 116/49 116/49 103/50 O2 Sat by Pulse 96 96 97 Oximetry 09/14/20 09/14/20 09/14/20 05:11 05:21 05:30 Temperature Pulse Rate 83 84 81 Pulse Rate [ Apical] Respiratory 30 H 30 H 30 H Rate Blood Pressure 103/50 103/50 111/54 O2 Sat by Pulse 96 96 95 Oximetry 09/14/20 09/14/20 09/14/20 05:41 05:51 06:00 Temperature Pulse Rate 79 80 Pulse Rate [ Apical] Respiratory 31 H 30 H Rate Blood Pressure 111/54 111/54 111/54 O2 Sat by Pulse 96 95 93 Oximetry 09/14/20 06:11 Temperature Pulse Rate 81 Pulse Rate [ Apical] Respiratory 26 H Rate Blood Pressure 105/54 O2 Sat by Pulse 94 Oximetry General appearance: Present: no acute distress, well-nourished - EENT Ears: bilateral: normal - Neck Neck: supple - Respiratory Respiratory effort: other (On ventilator) Respiratory: bilateral: rales (Scattered rhonchi) - Cardiovascular Heart rate: 88 Rhythm: regular - Gastrointestinal General gastrointestinal: Present: deferred - Genitourinary Male genitourinary: normal - Integumentary Integumentary: clear, warm, dry - Musculoskeletal Musculoskeletal: generalized weakness - Neurologic Neurologic: other (Patient intubated and sedated) - Psychiatric Psychiatric: other - Allied health notes Allied health notes reviewed: nursing (Patient intubated and sedated), case management - Labs CBC & Chem 7: 09/12/20 04:00 09/13/20 10:50 Labs: Abnormal lab results 09/13/20 09/13/20 09/13/20 Range/Units 10:50 11:39 17:48 POC ABG pO2 (83-108) mmHg ABG Hemoglobin (12.0-17.5) ABG Sodium (136.0-145.0) mmol/L ABG Glucose (65-95) mg/dL Chloride 96.6 L (98-107) mmol/L Carbon Dioxide 32 H (22-30) mmol/L BUN 76 H (9-20) mg/dL Creatinine 3.1 H (0.8-1.3) mg/dL Glucose 395 H (75-100) mg/dL POC Glucose 344 H 286 H (70-105) mg/dL Arterial Blood Glucose (65-95) mg/dL 09/13/20 09/14/20 09/14/20 Range/Units 23:35 03:54 05:34 POC ABG pO2 71.1 L (83-108) mmHg ABG Hemoglobin 10.3 L (12.0-17.5) ABG Sodium 135.2 L (136.0-145.0) mmol/L ABG Glucose 281 H (65-95) mg/dL Chloride (98-107) mmol/L Carbon Dioxide (22-30) mmol/L BUN (9-20) mg/dL Creatinine (0.8-1.3) mg/dL Glucose (75-100) mg/dL POC Glucose 223 H 252 H (70-105) mg/dL Arterial Blood Glucose 281 H (65-95) mg/dL HEART Score - HEART Score Troponin: Troponin T 0.076 ng/mL (0.00-0.029) H 09/07/20 14:00
[2020-09-14] MEDS: ACETAMINOPHEN 325 MG/10.15 ML ORAL LIQD UNIT DOSE PO PRN ×2 (08:12→23:38)
[2020-09-14] MEDS: NORepinephrine/NS 4 MG-250 ML 4 MG/250 ML BAG IV SCH (08:13)
--- NOTE | 2020-09-14 08:29 | Progress Note ---
Assessment and Plan - Patient Problems --Cardiac arrest Current Visit: Yes Status: Acute Plan to address problem: Patient currently intubated and sedated. Admitted into the intensive care unit. Eeo Officer has been consulted for evaluation. Acute kidney injury Secondary to ATN-patient getting emergent hemodialysis because of the creatinine and high potassium Hemodialysis as per nephrology Lower extremity edema ascites. Seizure disorder EEG requested Keppra increased to 1500 mg twice daily Patient loaded with valproic acid today Diprovan weaning off and attempts for possible extubation However prognosis remains extremely poor. --Respiratory acidosis Current Visit: Yes Status: Acute Plan to address problem: Secondary to the underlying pneumonia. Will monitor ABG. Patient intubated and weaning in progress Prognosis remains extremely poor secondary to COVID-19 pneumonia and severe sepsis. --Hyperkalemia Treat High K Emergent HD per Nephrology Hyperkalemia resolved --Coronavirus infection Current Visit: Yes Status: Acute Plan to address problem: Patient placed on isolation precautions. He has been started on empiric IV antibiotics. Patient on IV Decadron No remdesivir because of the kidney injury and the liver injury Family aware of diagnosis aware of poor prognosis. --Transaminitis Current Visit: Yes Status: Acute Plan to address problem: Possibly secondary to ischemic liver injury Also possible the Covid infection is caused the transaminitis No Tylenol as needed Low-dose ibuprofen if necessary for temperature more than 100 Today CMP is pending. --Morbid obesity Current Visit: Yes Status: Acute Plan to address problem: Patient has poor prognosis --DVT prophylaxis Current Visit: Yes Status: Acute Plan to address problem: Patient placed on subcutaneous Lovenox. Diabetes remains suboptimally controlled. Will increase long-acting insulin. --Full code status Current Visit: Yes Status: Acute Plan to address problem: Patient is a full code. The high probability of a clinically significant, sudden or life threatening deterioration of the [x] system(s) required my full and direct attention, intervention and personal management. The aggregate critical care time was [33] minutes. This time is in addition to time spent performing reported procedures but includes the following: [x] Data Review and interpretation [x Patient assessment and monitoring of vital signs []x Documentation [x] Medication orders and management Subjective Date of service: 09/14/20 Principal diagnosis: Abnormal LFTs, s/p cardiac arrest, acute kidney injury with ATN Interval history: 65-year-old male brought into the emergency room today by EMS for cardiopulmonary arrest. Patient was said to be awaiting a Covid test when he was said to have passed out. CPR was started and also patient was defibrillated once. CPR was continued on the field by EMS and patient had a spontaneous return of circulation. Upon arrival in the emergency room patient had been receiving bag valve mask ventilation through a Dayron airway. He was tachycardic and was subsequently intubated in the emergency room. Most of the history was obtained from the ER staff as patient is already intubated. Work-up in the emergency room today chest x-ray reveals:Bilateral airspace disease which could be related to alveolar edema or infection. CT scan of the head was unremarkable. Patient could not had a CT angiogram because of his size. Patient is being admitted for cardiopulmonary arrest and also possible Covid pneumonia. Day #2 Patient intubated Patient has high transaminitis status. S/p cardiac arrest ACLS and return of spontaneous circulation Hypoxic brain injury in the differential Covid pneumonia Day #3 Patient intubated Unresponsive S/p cardiac arrest Transaminitis-severe Covid pneumonia Day #4 Patient having seizures Patient is intubated Severe transaminitis Covid pneumonia Possible hypoxic brain injury ATN Day #5-09/11/2020 Patient intubated Seizure activity is better EEG requested Weaning in progress Day #6 09/12/2020 Neurology consult requested Less seizures Day #7 09/13/2020 Same condition Weaning in progress Possible anoxic brain injury Day #8 Patient remains intubated sedated no seizure activity Suspect hypoxic brain injury Objective - Constitutional Vitals: Vital Signs - 12hr 09/13/20 09/13/20 09/13/20 20:30 20:41 20:50 Temperature Pulse Rate 65 67 65 Pulse Rate [ Apical] Respiratory 14 30 H Rate Blood Pressure 105/47 101/48 105/47 O2 Sat by Pulse 95 96 96 Oximetry 09/13/20 09/13/20 09/13/20 20:51 21:00 21:11 Temperature Pulse Rate 66 65 65 Pulse Rate [ Apical] Respiratory 16 27 H 14 Rate Blood Pressure 101/48 99/46 99/46 O2 Sat by Pulse 96 94 96 Oximetry 09/13/20 09/13/20 09/13/20 21:21 21:30 21:41 Temperature Pulse Rate 67 68 68 Pulse Rate [ Apical] Respiratory 17 23 11 L Rate Blood Pressure 99/46 96/44 96/44 O2 Sat by Pulse 95 94 94 Oximetry 09/13/20 09/13/20 09/13/20 21:51 22:00 22:11 Temperature Pulse Rate 67 68 68 Pulse Rate [ Apical] Respiratory 20 21 29 H Rate Blood Pressure 96/44 96/45 96/45 O2 Sat by Pulse 95 93 95 Oximetry 09/13/20 09/13/20 09/13/20 22:21 22:30 22:41 Temperature Pulse Rate 66 70 70 Pulse Rate [ Apical] Respiratory 20 19 22 Rate Blood Pressure 96/45 102/46 102/46 O2 Sat by Pulse 96 94 96 Oximetry 09/13/20 09/13/20 09/13/20 22:51 23:00 23:03 Temperature Pulse Rate 70 71 70 Pulse Rate [ Apical] Respiratory 26 H 19 22 Rate Blood Pressure 102/46 104/48 104/48 O2 Sat by Pulse 96 93 97 Oximetry 09/13/20 09/13/20 09/13/20 23:11 23:18 23:21 Temperature Pulse Rate 71 71 71 Pulse Rate [ Apical] Respiratory 10 L 20 Rate Blood Pressure 104/48 104/48 104/48 O2 Sat by Pulse 95 95 96 Oximetry 09/13/20 09/13/20 09/13/20 23:30 23:41 23:51 Temperature Pulse Rate 70 70 70 Pulse Rate [ Apical] Respiratory 24 27 H 25 H Rate Blood Pressure 97/44 97/44 97/44 O2 Sat by Pulse 95 97 97 Oximetry 09/14/20 09/14/20 09/14/20 00:00 00:11 00:21 Temperature 99.4 F Pulse Rate 71 70 70 Pulse Rate [ 73 Apical] Respiratory 23 23 27 H Rate Blood Pressure 90/48 90/48 90/48 O2 Sat by Pulse 96 97 97 Oximetry 09/14/20 09/14/20 09/14/20 00:30 00:41 00:51 Temperature Pulse Rate 72 72 71 Pulse Rate [ Apical] Respiratory 31 H 30 H 31 H Rate Blood Pressure 88/52 98/44 98/44 O2 Sat by Pulse 95 97 97 Oximetry 09/14/20 09/14/20 09/14/20 01:00 01:11 01:21 Temperature Pulse Rate 72 74 73 Pulse Rate [ Apical] Respiratory 26 H 30 H 28 H Rate Blood Pressure 104/54 104/54 104/54 O2 Sat by Pulse 95 97 97 Oximetry 09/14/20 09/14/20 09/14/20 01:30 01:41 01:51 Temperature Pulse Rate 74 74 74 Pulse Rate [ Apical] Respiratory 29 H 28 H 20 Rate Blood Pressure 107/52 107/52 107/52 O2 Sat by Pulse 95 97 97 Oximetry 09/14/20 09/14/20 09/14/20 02:00 02:11 02:21 Temperature Pulse Rate 73 74 74 Pulse Rate [ Apical] Respiratory 30 H 24 23 Rate Blood Pressure 111/48 111/48 111/48 O2 Sat by Pulse 95 97 97 Oximetry 09/14/20 09/14/20 09/14/20 02:31 02:41 02:51 Temperature Pulse Rate 75 75 76 Pulse Rate [ Apical] Respiratory 31 H 25 H 30 H Rate Blood Pressure 96/45 96/45 96/45 O2 Sat by Pulse 95 97 97 Oximetry 09/14/20 09/14/20 09/14/20 03:01 03:11 03:21 Temperature Pulse Rate 77 78 77 Pulse Rate [ Apical] Respiratory 27 H 23 30 H Rate Blood Pressure 96/45 108/46 108/46 O2 Sat by Pulse 95 96 96 Oximetry 09/14/20 09/14/20 09/14/20 03:30 03:41 03:51 Temperature Pulse Rate 78 80 93 H Pulse Rate [ Apical] Respiratory 31 H 20 31 H Rate Blood Pressure 100/48 100/48 100/48 O2 Sat by Pulse 95 95 94 Oximetry 09/14/20 09/14/20 09/14/20 04:00 04:01 04:11 Temperature 100.6 F H Pulse Rate 80 97 H 87 Pulse Rate [ 79 Apical] Respiratory 30 H 32 H 30 H Rate Blood Pressure 129/63 129/63 O2 Sat by Pulse 94 95 Oximetry 09/14/20 09/14/20 09/14/20 04:21 04:31 04:41 Temperature Pulse Rate 87 86 84 Pulse Rate [ Apical] Respiratory 30 H 30 H 30 H Rate Blood Pressure 129/63 116/49 116/49 O2 Sat by Pulse 95 95 96 Oximetry 09/14/20 09/14/20 09/14/20 04:51 05:00 05:11 Temperature Pulse Rate 84 84 83 Pulse Rate [ Apical] Respiratory 30 H 30 H 30 H Rate Blood Pressure 116/49 103/50 103/50 O2 Sat by Pulse 96 97 96 Oximetry 09/14/20 09/14/20 09/14/20 05:21 05:30 05:41 Temperature Pulse Rate 84 81 79 Pulse Rate [ Apical] Respiratory 30 H 30 H 31 H Rate Blood Pressure 103/50 111/54 111/54 O2 Sat by Pulse 96 95 96 Oximetry 09/14/20 09/14/20 09/14/20 05:51 06:00 06:11 Temperature Pulse Rate 80 81 Pulse Rate [ Apical] Respiratory 30 H 26 H Rate Blood Pressure 111/54 111/54 105/54 O2 Sat by Pulse 95 93 94 Oximetry General appearance: Present: other (Intubated sedated) - Respiratory Respiratory: bilateral: diminished Extremity abnormal: edema, other (Lymphedema) - Labs CBC & Chem 7: 09/12/20 04:00 09/14/20 10:27 Labs: Abnormal lab results 09/13/20 09/13/20 09/13/20 Range/Units 10:50 11:39 17:48 POC ABG pO2 (83-108) mmHg ABG Hemoglobin (12.0-17.5) ABG Sodium (136.0-145.0) mmol/L ABG Glucose (65-95) mg/dL Chloride 96.6 L (98-107) mmol/L Carbon Dioxide 32 H (22-30) mmol/L BUN 76 H (9-20) mg/dL Creatinine 3.1 H (0.8-1.3) mg/dL Glucose 395 H (75-100) mg/dL POC Glucose 344 H 286 H (70-105) mg/dL Arterial Blood Glucose (65-95) mg/dL 09/13/20 09/14/20 09/14/20 Range/Units 23:35 03:54 05:34 POC ABG pO2 71.1 L (83-108) mmHg ABG Hemoglobin 10.3 L (12.0-17.5) ABG Sodium 135.2 L (136.0-145.0) mmol/L ABG Glucose 281 H (65-95) mg/dL Chloride (98-107) mmol/L Carbon Dioxide (22-30) mmol/L BUN (9-20) mg/dL Creatinine (0.8-1.3) mg/dL Glucose (75-100) mg/dL POC Glucose 223 H 252 H (70-105) mg/dL Arterial Blood Glucose 281 H (65-95) mg/dL - Imaging and cardiology Chest x-ray: report reviewed, image reviewed CT Scan - head: report reviewed US - abdomen: report reviewed HEART Score - HEART Score Troponin: Troponin T 0.076 ng/mL (0.00-0.029) H 09/07/20 14:00
[2020-09-14] MEDS: levETIRAcetam 1,500 MG in DEXTROSE 5% IN WATER 100 ML IV SCH ×2 (09:16→21:49)
[2020-09-14] MEDS: SENNOSIDES/DOCUSATE SODIUM 8.6/50 MG TAB PO SCH ×2 (09:17→21:50)
[2020-09-14] MEDS: MULTIVITAMINS 5 ML ORAL LIQUID PO SCH (09:17)
[2020-09-14] MEDS: LANSOPRAZOLE 30 MG SOLUTAB FEEDTUBE SCH ×2 (09:17→21:50)
[2020-09-14] MEDS ORDERED: VALPROATE SODIUM 1,500 MG in SODIUM CHLORIDE 0.9% 100 ML IV ONE (10:00)
[2020-09-14] MEDS ORDERED: INSULIN GLARGINE 100 UNITS/ML SUB-Q SCH (10:00)
[2020-09-14 11:05] LABS: Albumin 2.9 g/dL (3.9-5); Calcium 8.5 mg/dL (8.4-10.2)
--- NOTE | 2020-09-14 11:07 | Progress Note ---
Assessment and Plan 65 y/o male with out of hospital cardiac arrest now sedated on ativan for possible seizures. 09/14/20: Will load with valproic acid and then start to wean Diprovan. Spoke with today, very tearful on the phone. Explained to that Neurosurgery would come and gustabo walker but not a candidate for the other therapies she asked about since his edema is related to anoxic injury. Very very poor prognosis. 09/13/20: Per current neuro available, the neurologist from yesterday will call today. EEG is nonspecific but given CT of head findings consistent with anoxic encephalopathy, brain injury. As stated in neuro note, overall prognosis is very poor. Will continue to wean down diprovan to see if patient's seizures have been controlled with current Keppra dosing. Will call once she has spoken to neuro to get her thoughts on the next steps. (trach and peg, vs hospice as well as code status). Very very poor prognosis. 09/12/20: Long discussion with this am. Given recent head CT results, prognosis for full functional recovery is very POOR and neurology agrees. They will see in consult today. I have spoken to about AND and she is going to discuss with the family. The neurologist has stated they will reach out to the today. I am going to attempt to wean the ativan off and then start to wean the diprovan as long as no seizure activity is seen. Patient is now bradycardic, likely secondary to neuro state. I hope that he is not about to herniate. Patient is also like in Neurogenic DI given large urine out put volume. Very very poor prognosis. Continue supportive measures. 09/11/20: Will increase Keppra to 1500 BID given patient size. Continue Diprovan drip. Getting EEG today. HD per renal. Needs neurology consult however if patient is in status, needs to be transferred to an institution that can provide continuous EEG monitoring. Overll prognosis is very guarded to poor. Have not spoken to yet today. 09/10/20: Loaded with keppra and will start on Keppra BID. Needs EEG on therapy as well as OFF. If patient is in status, needs transfer to a location with continuous EEG capabilities. FiO2 has been weaned back down and is now at 60%, sats in the high 90's. HD per renal. Coags improving. Overall prognosis is guarded to poor. Spoke with on phone yesterday. Consult neurology tomorrow as not available on the weekend. Suggest checking for antibodies as he may be a candidate for convalsescent plasma. Per the , he was diagnosed with COVID on and spent 6 days inpatient at the [facility]. Remains positive now with multisystem organ failure. Explained to that outcome may not be good but need more time to assess. 09/09/20: EEG ordered on yesterday but not done. If done not read. Continue diprovan for now until EEG can be done or interpreted. State Coags but given his oozing from his vascath, will give Vitamin K and FFP. Patient is covid positive so agree with steroids. Not a candidate for remdesivir. Need to check for antibodies, may be a candidate for convalescent plasma. HD per renal. Given improvement in pH will stop bicarb drip. Feed patient. 1. Stop sedation 2. EEG 3. Needs neuro consult. 4. Art line placement 5. Stat repeat of labs, if renal function is truly that bad, will need renal consult. 6. Follow up COVID testing 7. Likely needs echo 8. Will place on bicarb drip. CCT 31 minutes. Subjective Date of service: 09/14/20 Principal diagnosis: Abnormal LFTs, s/p cardiac arrest, acute kidney injury with ATN Interval history: Neurology spoke with family giving poor prognosis. Family now is asking about mannitol therapy and hypertonic saline and possible hao holes. I have reached out to our pharmacy innovation assistant neurosurgeon who has agreed to come and evaluate the patient. Objective Vital Signs - 12hr 09/13/20 09/13/20 09/13/20 23:00 23:03 23:11 Temperature Pulse Rate 71 70 71 Pulse Rate [ Apical] Respiratory 19 22 10 L Rate Blood Pressure 104/48 104/48 104/48 O2 Sat by Pulse 93 97 95 Oximetry 09/13/20 09/13/20 09/13/20 23:18 23:21 23:30 Temperature Pulse Rate 71 71 70 Pulse Rate [ Apical] Respiratory 20 24 Rate Blood Pressure 104/48 104/48 97/44 O2 Sat by Pulse 95 96 95 Oximetry 09/13/20 09/13/20 09/14/20 23:41 23:51 00:00 Temperature 99.4 F Pulse Rate 70 70 71 Pulse Rate [ 73 Apical] Respiratory 27 H 25 H 23 Rate Blood Pressure 97/44 97/44 90/48 O2 Sat by Pulse 97 97 96 Oximetry 09/14/20 09/14/20 09/14/20 00:11 00:21 00:30 Temperature Pulse Rate 70 70 72 Pulse Rate [ Apical] Respiratory 23 27 H 31 H Rate Blood Pressure 90/48 90/48 88/52 O2 Sat by Pulse 97 97 95 Oximetry 09/14/20 09/14/20 09/14/20 00:41 00:51 01:00 Temperature Pulse Rate 72 71 72 Pulse Rate [ Apical] Respiratory 30 H 31 H 26 H Rate Blood Pressure 98/44 98/44 104/54 O2 Sat by Pulse 97 97 95 Oximetry 09/14/20 09/14/20 09/14/20 01:11 01:21 01:30 Temperature Pulse Rate 74 73 74 Pulse Rate [ Apical] Respiratory 30 H 28 H 29 H Rate Blood Pressure 104/54 104/54 107/52 O2 Sat by Pulse 97 97 95 Oximetry 09/14/20 09/14/20 09/14/20 01:41 01:51 02:00 Temperature Pulse Rate 74 74 73 Pulse Rate [ Apical] Respiratory 28 H 20 30 H Rate Blood Pressure 107/52 107/52 111/48 O2 Sat by Pulse 97 97 95 Oximetry 09/14/20 09/14/20 09/14/20 02:11 02:21 02:31 Temperature Pulse Rate 74 74 75 Pulse Rate [ Apical] Respiratory 24 23 31 H Rate Blood Pressure 111/48 111/48 96/45 O2 Sat by Pulse 97 97 95 Oximetry 09/14/20 09/14/20 09/14/20 02:41 02:51 03:01 Temperature Pulse Rate 75 76 77 Pulse Rate [ Apical] Respiratory 25 H 30 H 27 H Rate Blood Pressure 96/45 96/45 96/45 O2 Sat by Pulse 97 97 95 Oximetry 09/14/20 09/14/20 09/14/20 03:11 03:21 03:30 Temperature Pulse Rate 78 77 78 Pulse Rate [ Apical] Respiratory 23 30 H 31 H Rate Blood Pressure 108/46 108/46 100/48 O2 Sat by Pulse 96 96 95 Oximetry 09/14/20 09/14/20 09/14/20 03:41 03:51 04:00 Temperature 100.6 F H Pulse Rate 80 93 H 80 Pulse Rate [ 79 Apical] Respiratory 20 31 H 30 H Rate Blood Pressure 100/48 100/48 O2 Sat by Pulse 95 94 Oximetry 09/14/20 09/14/20 09/14/20 04:01 04:11 04:21 Temperature Pulse Rate 97 H 87 87 Pulse Rate [ Apical] Respiratory 32 H 30 H 30 H Rate Blood Pressure 129/63 129/63 129/63 O2 Sat by Pulse 94 95 95 Oximetry 09/14/20 09/14/20 09/14/20 04:31 04:41 04:51 Temperature Pulse Rate 86 84 84 Pulse Rate [ Apical] Respiratory 30 H 30 H 30 H Rate Blood Pressure 116/49 116/49 116/49 O2 Sat by Pulse 95 96 96 Oximetry 09/14/20 09/14/20 09/14/20 05:00 05:11 05:21 Temperature Pulse Rate 84 83 84 Pulse Rate [ Apical] Respiratory 30 H 30 H 30 H Rate Blood Pressure 103/50 103/50 103/50 O2 Sat by Pulse 97 96 96 Oximetry 09/14/20 09/14/20 09/14/20 05:30 05:41 05:51 Temperature Pulse Rate 81 79 80 Pulse Rate [ Apical] Respiratory 30 H 31 H 30 H Rate Blood Pressure 111/54 111/54 111/54 O2 Sat by Pulse 95 96 95 Oximetry 09/14/20 09/14/20 09/14/20 06:00 06:11 06:21 Temperature Pulse Rate 81 81 Pulse Rate [ Apical] Respiratory 26 H 33 H Rate Blood Pressure 111/54 105/54 105/54 O2 Sat by Pulse 93 94 93 Oximetry 09/14/20 09/14/20 09/14/20 06:30 06:41 06:51 Temperature Pulse Rate 81 79 81 Pulse Rate [ Apical] Respiratory 27 H 29 H 27 H Rate Blood Pressure 97/48 97/48 97/48 O2 Sat by Pulse 94 96 95 Oximetry 09/14/20 09/14/20 09/14/20 07:00 07:11 07:21 Temperature Pulse Rate 80 78 77 Pulse Rate [ Apical] Respiratory 14 13 8 L Rate Blood Pressure 107/46 107/46 107/46 O2 Sat by Pulse 94 96 96 Oximetry 09/14/20 09/14/20 09/14/20 07:30 07:41 07:51 Temperature Pulse Rate 77 78 79 Pulse Rate [ Apical] Respiratory 26 H 16 24 Rate Blood Pressure 105/50 105/50 105/50 O2 Sat by Pulse 94 96 96 Oximetry 09/14/20 09/14/20 09/14/20 08:00 08:11 08:15 Temperature 102.9 F H Pulse Rate 77 80 73 Pulse Rate [ 77 Apical] Respiratory 31 H 27 H Rate Blood Pressure 107/45 107/45 123/54 O2 Sat by Pulse 97 96 97 Oximetry 09/14/20 09/14/20 09/14/20 08:21 08:30 08:41 Temperature Pulse Rate 77 74 73 Pulse Rate [ Apical] Respiratory 20 30 H 25 H Rate Blood Pressure 107/45 101/50 101/50 O2 Sat by Pulse 96 96 97 Oximetry 09/14/20 09/14/20 09/14/20 08:51 09:00 09:11 Temperature Pulse Rate 72 72 72 Pulse Rate [ Apical] Respiratory 29 H 30 H 19 Rate Blood Pressure 123/54 130/52 130/52 O2 Sat by Pulse 97 95 96 Oximetry 09/14/20 09/14/20 09/14/20 09:21 09:30 09:41 Temperature Pulse Rate 71 75 Pulse Rate [ Apical] Respiratory 30 H 29 H Rate Blood Pressure 112/51 124/54 124/54 O2 Sat by Pulse 97 94 97 Oximetry 09/14/20 09/14/20 09/14/20 09:51 10:00 10:11 Temperature Pulse Rate 73 72 71 Pulse Rate [ Apical] Respiratory 31 H 30 H 30 H Rate Blood Pressure 124/53 121/54 121/54 O2 Sat by Pulse 97 96 97 Oximetry Constitutional: comatose, other (morbidly obese) Eyes: non-icteric ENT: other (orally intubated and sedated) Neck: supple Effort: normal Ascultation: Bilateral: diminished breath sounds Percussion: Bilateral: not dull Cardiovascular: other (bradycardic) Gastrointestinal: soft CBC and BMP: 09/12/20 04:00 09/14/20 10:27 ABG, PT/INR, D-dimer: ABG ABG pH 7.442 (7.320-7.450) 09/14/20 03:54 POC ABG pCO2 42.3 mmHg (32.0-48.0) 09/14/20 03:54 ABG pCO2 33.4 mm Hg 09/11/20 05:40 POC ABG pO2 71.1 mmHg (83-108) L 09/14/20 03:54 ABG pO2 112.1 mm Hg (80.0-90.0) H 09/11/20 05:40 POC ABG HCO3 28.2 09/14/20 03:54 ABG O2 Saturation 98.4 % (95.0-99.0) 09/11/20 05:40 PT/INR, D-dimer PT 16.1 Sec. (12.2-14.9) H 09/12/20 04:00 INR 1.31 (0.87-1.13) H 09/12/20 04:00 D-Dimer 8315.85 ng/mlDDU (0-234) H 09/07/20 14:00 Abnormal lab findings: Abnormal Labs 09/07/20 09/07/20 09/07/20 13:08 14:00 14:00 WBC 15.7 H RBC Hgb 10.2 L Hct 32.5 L MCHC 31 L RDW 17.5 H Lymph % (Auto) [place] % (Auto) Lymph # (Auto) [place] # (Auto) Seg Neutrophils % Seg Neuts % (Manual) 72.0 H Lymphocytes % (Manual) Monocytes % (Manual) 8.0 H Nucleated RBC % Seg Neutrophils # Seg Neutrophils # Man 11.3 H Lymphocytes # (Manual) Monocytes # (Manual) 1.3 H PT INR D-Dimer 8315.85 H ABG pH POC ABG pCO2 POC ABG pO2 ABG pO2 ABG HCO3 ABG Base Excess ABG Hemoglobin ABG Oxyhemoglobin ABG Sodium ABG Potassium ABG Chloride ABG Glucose Carboxyhemoglobin Sodium Potassium Chloride Carbon Dioxide BUN Creatinine Glucose POC Glucose Lactic Acid Calcium Phosphorus Ferritin Total Bilirubin Direct Bilirubin AST ALT Lactate Dehydrogenase Total Creatine Kinase Troponin T Total Protein Albumin Triglycerides Arterial Blood Glucose Arterial Blood Ionized Calcium Urine pH 8.0 H Urine Creatinine Salicylates Acetaminophen Coronavirus (PCR) 09/07/20 09/07/20 09/07/20 14:00 14:00 14:00 WBC RBC Hgb Hct MCHC RDW Lymph % (Auto) [place] % (Auto) Lymph # (Auto) [place] # (Auto) Seg Neutrophils % Seg Neuts % (Manual) Lymphocytes % (Manual) Monocytes % (Manual) Nucleated RBC % Seg Neutrophils # Seg Neutrophils # Man Lymphocytes # (Manual) Monocytes # (Manual) PT INR D-Dimer ABG pH POC ABG pCO2 POC ABG pO2 ABG pO2 ABG HCO3 ABG Base Excess ABG Hemoglobin ABG Oxyhemoglobin ABG Sodium ABG Potassium ABG Chloride ABG Glucose Carboxyhemoglobin Sodium Potassium Chloride Carbon Dioxide BUN Creatinine Glucose POC Glucose Lactic Acid 4.30 H* Calcium Phosphorus Ferritin > 2000.0 H Total Bilirubin Direct Bilirubin AST ALT Lactate Dehydrogenase 882 H Total Creatine Kinase 477 H Troponin T 0.076 H Total Protein Albumin Triglycerides Arterial Blood Glucose Arterial Blood Ionized Calcium Urine pH Urine Creatinine Salicylates Acetaminophen Coronavirus (PCR) 09/07/20 09/07/20 09/07/20 14:00 14:00 14:00 WBC RBC Hgb Hct MCHC RDW Lymph % (Auto) [place] % (Auto) Lymph # (Auto) [place] # (Auto) Seg Neutrophils % Seg Neuts % (Manual) Lymphocytes % (Manual) Monocytes % (Manual) Nucleated RBC % Seg Neutrophils # Seg Neutrophils # Man Lymphocytes # (Manual) Monocytes # (Manual) PT INR D-Dimer ABG pH POC ABG pCO2 POC ABG pO2 ABG pO2 ABG HCO3 ABG Base Excess ABG Hemoglobin ABG Oxyhemoglobin ABG Sodium ABG Potassium ABG Chloride ABG Glucose Carboxyhemoglobin Sodium Potassium Chloride Carbon Dioxide BUN Creatinine 1.8 H Glucose POC Glucose Lactic Acid Calcium Phosphorus Ferritin Total Bilirubin Direct Bilirubin AST 310 H ALT 339 H Lactate Dehydrogenase Total Creatine Kinase Troponin T Total Protein Albumin 3.6 L Triglycerides Arterial Blood Glucose Arterial Blood Ionized Calcium Urine pH Urine Creatinine Salicylates < 0.3 L Acetaminophen 5.0 L Coronavirus (PCR) 09/07/20 09/08/20 09/08/20 14:26 04:00 04:17 WBC RBC Hgb Hct MCHC RDW Lymph % (Auto) [place] % (Auto) Lymph # (Auto) [place] # (Auto) Seg Neutrophils % Seg Neuts % (Manual) Lymphocytes % (Manual) Monocytes % (Manual) Nucleated RBC % Seg Neutrophils # Seg Neutrophils # Man Lymphocytes # (Manual) Monocytes # (Manual) PT INR D-Dimer ABG pH 7.037 L 7.095 L POC ABG pCO2 92.4 H 68.0 H POC ABG pO2 130.8 H 43.5 L ABG pO2 ABG HCO3 ABG Base Excess ABG Hemoglobin 11.3 L 10.6 L ABG Oxyhemoglobin 70.8 L ABG Sodium ABG Potassium 7.0 H ABG Chloride 108.0 H ABG Glucose Carboxyhemoglobin 0.3 L Sodium Potassium 8.4 H* D Chloride Carbon Dioxide 17 L D BUN 38 H Creatinine 3.9 H D Glucose POC Glucose Lactic Acid Calcium 7.7 L D Phosphorus Ferritin Total Bilirubin Direct Bilirubin AST ALT Lactate Dehydrogenase Total Creatine Kinase Troponin T Total Protein Albumin Triglycerides Arterial Blood Glucose Arterial Blood Ionized Calcium 4.5 L Urine pH Urine Creatinine Salicylates Acetaminophen Coronavirus (PCR) 09/08/20 09/08/20 09/08/20 05:00 05:25 12:02 WBC RBC Hgb Hct MCHC RDW Lymph % (Auto) [place] % (Auto) Lymph # (Auto) [place] # (Auto) Seg Neutrophils % Seg Neuts % (Manual) Lymphocytes % (Manual) Monocytes % (Manual) Nucleated RBC % Seg Neutrophils # Seg Neutrophils # Man Lymphocytes # (Manual) Monocytes # (Manual) PT INR D-Dimer ABG pH 7.088 L POC ABG pCO2 69.1 H POC ABG pO2 35.2 L ABG pO2 ABG HCO3 ABG Base Excess ABG Hemoglobin 10.9 L ABG Oxyhemoglobin 57.1 L ABG Sodium ABG Potassium 7.0 H ABG Chloride 108.0 H ABG Glucose Carboxyhemoglobin 0.4 L Sodium Potassium 8.1 H* Chloride Carbon Dioxide 17 L BUN 38 H Creatinine 3.7 H Glucose POC Glucose Lactic Acid Calcium 8.0 L Phosphorus 8.00 H Ferritin Total Bilirubin Direct Bilirubin 0.5 H AST 3696 H ALT 3331 H Lactate Dehydrogenase Total Creatine Kinase Troponin T Total Protein Albumin 3.5 L Triglycerides Arterial Blood Glucose Arterial Blood Ionized Calcium 4.4 L Urine pH Urine Creatinine Salicylates Acetaminophen Coronavirus (PCR) 09/08/20 09/08/20 09/08/20 16:31 22:36 Unknown WBC RBC Hgb Hct MCHC RDW Lymph % (Auto) [place] % (Auto) Lymph # (Auto) [place] # (Auto) Seg Neutrophils % Seg Neuts % (Manual) Lymphocytes % (Manual) Monocytes % (Manual) Nucleated RBC % Seg Neutrophils # Seg Neutrophils # Man Lymphocytes # (Manual) Monocytes # (Manual) PT INR D-Dimer ABG pH POC ABG pCO2 POC ABG pO2 ABG pO2 ABG HCO3 ABG Base Excess ABG Hemoglobin ABG Oxyhemoglobin ABG Sodium ABG Potassium ABG Chloride ABG Glucose Carboxyhemoglobin Sodium Potassium 5.3 H D Chloride Carbon Dioxide BUN Creatinine Glucose POC Glucose 158 H Lactic Acid Calcium Phosphorus Ferritin Total Bilirubin Direct Bilirubin AST ALT Lactate Dehydrogenase Total Creatine Kinase Troponin T Total Protein Albumin Triglycerides Arterial Blood Glucose Arterial Blood Ionized Calcium Urine pH Urine Creatinine Salicylates Acetaminophen Coronavirus (PCR) Positive A 09/08/20 09/08/20 09/08/20 Unknown Unknown Unknown WBC 18.4 H RBC Hgb 10.1 L Hct 32.0 L MCHC RDW 18.2 H Lymph % (Auto) [place] % (Auto) Lymph # (Auto) [place] # (Auto) Seg Neutrophils % Seg Neuts % (Manual) 81.0 H Lymphocytes % (Manual) 2.0 L Monocytes % (Manual) Nucleated RBC % 1.0 H Seg Neutrophils # Seg Neutrophils # Man 14.9 H Lymphocytes # (Manual) 0.4 L Monocytes # (Manual) 1.1 H PT 21.2 H INR 1.83 H D-Dimer ABG pH POC ABG pCO2 POC ABG pO2 ABG pO2 ABG HCO3 ABG Base Excess ABG Hemoglobin ABG Oxyhemoglobin ABG Sodium ABG Potassium ABG Chloride ABG Glucose Carboxyhemoglobin Sodium Potassium Chloride Carbon Dioxide BUN Creatinine Glucose POC Glucose Lactic Acid Calcium Phosphorus Ferritin Total Bilirubin Direct Bilirubin AST ALT Lactate Dehydrogenase Total Creatine Kinase Troponin T Total Protein Albumin Triglycerides Arterial Blood Glucose Arterial Blood Ionized Calcium Urine pH Urine Creatinine 182.4 H Salicylates Acetaminophen Coronavirus (PCR) 09/09/20 09/09/20 09/09/20 03:14 04:20 04:20 WBC 16.3 H RBC 3.12 L Hgb 8.6 L Hct 26.8 L MCHC RDW 18.2 H Lymph % (Auto) 6.3 L [place] % (Auto) 8.8 H Lymph # (Auto) 1.0 L [place] # (Auto) 1.4 H Seg Neutrophils % 84.5 H Seg Neuts % (Manual) Lymphocytes % (Manual) Monocytes % (Manual) Nucleated RBC % Seg Neutrophils # 13.7 H Seg Neutrophils # Man Lymphocytes # (Manual) Monocytes # (Manual) PT INR D-Dimer ABG pH POC ABG pCO2 POC ABG pO2 148.5 H ABG pO2 ABG HCO3 ABG Base Excess ABG Hemoglobin 9.4 L ABG Oxyhemoglobin 98.8 H ABG Sodium 134.8 L ABG Potassium 5.0 H ABG Chloride ABG Glucose 222 H Carboxyhemoglobin 0.1 L Sodium Potassium 5.2 H Chloride Carbon Dioxide BUN 47 H Creatinine 4.3 H Glucose 211 H POC Glucose Lactic Acid Calcium 7.4 L Phosphorus Ferritin Total Bilirubin [place] 81330 H ALT 6206 H Lactate Dehydrogenase Total Creatine Kinase Troponin T Total Protein 5.6 L Albumin 3.0 L Triglycerides Arterial Blood Glucose 222 H Arterial Blood Ionized Calcium 3.8 L Urine pH Urine Creatinine Salicylates Acetaminophen Coronavirus (PCR) 09/09/20 09/09/20 09/09/20 10:00 12:23 18:22 WBC RBC Hgb Hct MCHC RDW Lymph % (Auto) [place] % (Auto) Lymph # (Auto) [place] # (Auto) Seg Neutrophils % Seg Neuts % (Manual) Lymphocytes % (Manual) Monocytes % (Manual) Nucleated RBC % Seg Neutrophils # Seg Neutrophils # Man Lymphocytes # (Manual) Monocytes # (Manual) PT 21.7 H INR 1.90 H D-Dimer ABG pH POC ABG pCO2 POC ABG pO2 ABG pO2 ABG HCO3 ABG Base Excess ABG Hemoglobin ABG Oxyhemoglobin ABG Sodium ABG Potassium ABG Chloride ABG Glucose Carboxyhemoglobin Sodium Potassium Chloride Carbon Dioxide BUN Creatinine Glucose POC Glucose 216 H 211 H Lactic Acid Calcium Phosphorus Ferritin Total Bilirubin Direct Bilirubin AST ALT Lactate Dehydrogenase Total Creatine Kinase Troponin T Total Protein Albumin Triglycerides Arterial Blood Glucose Arterial Blood Ionized Calcium Urine pH Urine Creatinine Salicylates Acetaminophen Coronavirus (PCR) 09/10/20 09/10/20 09/10/20 04:00 04:05 04:05 WBC 15.0 H RBC 3.06 L Hgb 8.6 L Hct 25.8 L MCHC RDW 18.0 H Lymph % (Auto) [place] % (Auto) Lymph # (Auto) [place] # (Auto) Seg Neutrophils % Seg Neuts % (Manual) 86.0 H Lymphocytes % (Manual) 6.0 L Monocytes % (Manual) 8.0 H Nucleated RBC % Seg Neutrophils # Seg Neutrophils # Man 12.9 H Lymphocytes # (Manual) 0.9 L Monocytes # (Manual) 1.2 H PT 18.4 H INR 1.54 H D-Dimer ABG pH POC ABG pCO2 POC ABG pO2 ABG pO2 ABG HCO3 ABG Base Excess ABG Hemoglobin ABG Oxyhemoglobin ABG Sodium ABG Potassium ABG Chloride ABG Glucose Carboxyhemoglobin Sodium 134 L Potassium Chloride 93.7 L Carbon Dioxide BUN 46 H Creatinine 3.6 H Glucose 275 H POC Glucose Lactic Acid Calcium 7.7 L Phosphorus Ferritin Total Bilirubin 1.30 H Direct Bilirubin AST 5899 H ALT 6440 H Lactate Dehydrogenase Total Creatine Kinase Troponin T Total Protein 5.9 L Albumin 3.3 L Triglycerides Arterial Blood Glucose Arterial Blood Ionized Calcium Urine pH Urine Creatinine Salicylates Acetaminophen Coronavirus (PCR) 09/10/20 09/10/20 09/10/20 04:35 12:06 17:42 WBC RBC Hgb Hct MCHC RDW Lymph % (Auto) [place] % (Auto) Lymph # (Auto) [place] # (Auto) Seg Neutrophils % Seg Neuts % (Manual) Lymphocytes % (Manual) Monocytes % (Manual) Nucleated RBC % Seg Neutrophils # Seg Neutrophils # Man Lymphocytes # (Manual) Monocytes # (Manual) PT INR D-Dimer ABG pH 7.464 H POC ABG pCO2 POC ABG pO2 ABG pO2 ABG HCO3 ABG Base Excess ABG Hemoglobin 9.9 L ABG Oxyhemoglobin ABG Sodium 131.6 L ABG Potassium ABG Chloride 97.0 L ABG Glucose 281 H Carboxyhemoglobin 0.1 L Sodium Potassium Chloride Carbon Dioxide BUN Creatinine Glucose POC Glucose 298 H 340 H Lactic Acid Calcium Phosphorus Ferritin Total Bilirubin Direct Bilirubin AST ALT Lactate Dehydrogenase Total Creatine Kinase Troponin T Total Protein Albumin Triglycerides Arterial Blood Glucose 281 H Arterial Blood Ionized Calcium 3.9 L Urine pH Urine Creatinine Salicylates Acetaminophen Coronavirus (PCR) 09/10/20 09/11/20 09/11/20 23:07 04:44 05:17 WBC RBC Hgb Hct MCHC RDW Lymph % (Auto) [place] % (Auto) Lymph # (Auto) [place] # (Auto) Seg Neutrophils % Seg Neuts % (Manual) Lymphocytes % (Manual) Monocytes % (Manual) Nucleated RBC % Seg Neutrophils # Seg Neutrophils # Man Lymphocytes # (Manual) Monocytes # (Manual) PT 16.9 H INR 1.39 H D-Dimer ABG pH POC ABG pCO2 POC ABG pO2 ABG pO2 ABG HCO3 ABG Base Excess ABG Hemoglobin ABG Oxyhemoglobin ABG Sodium ABG Potassium ABG Chloride ABG Glucose Carboxyhemoglobin Sodium Potassium Chloride Carbon Dioxide BUN Creatinine Glucose POC Glucose 367 H 416 H Lactic Acid Calcium Phosphorus Ferritin Total Bilirubin Direct Bilirubin AST ALT Lactate Dehydrogenase Total Creatine Kinase Troponin T Total Protein Albumin Triglycerides Arterial Blood Glucose Arterial Blood Ionized Calcium Urine pH Urine Creatinine Salicylates Acetaminophen Coronavirus (PCR) 09/11/20 09/11/20 09/11/20 05:40 12:01 17:50 WBC RBC Hgb Hct MCHC RDW Lymph % (Auto) [place] % (Auto) Lymph # (Auto) [place] # (Auto) Seg Neutrophils % Seg Neuts % (Manual) Lymphocytes % (Manual) Monocytes % (Manual) Nucleated RBC % Seg Neutrophils # Seg Neutrophils # Man Lymphocytes # (Manual) Monocytes # (Manual) PT INR D-Dimer ABG pH 7.543 H POC ABG pCO2 POC ABG pO2 ABG pO2 112.1 H ABG HCO3 28.1 H ABG Base Excess 5.4 H ABG Hemoglobin 8.4 L ABG Oxyhemoglobin ABG Sodium ABG Potassium ABG Chloride ABG Glucose Carboxyhemoglobin Sodium Potassium Chloride Carbon Dioxide BUN Creatinine Glucose POC Glucose 418 H 404 H Lactic Acid Calcium Phosphorus Ferritin Total Bilirubin Direct Bilirubin AST ALT Lactate Dehydrogenase Total Creatine Kinase Troponin T Total Protein Albumin Triglycerides Arterial Blood Glucose Arterial Blood Ionized Calcium Urine pH Urine Creatinine Salicylates Acetaminophen Coronavirus (PCR) 09/11/20 09/11/20 09/12/20 23:10 23:43 03:15 WBC RBC Hgb Hct MCHC RDW Lymph % (Auto) [place] % (Auto) Lymph # (Auto) [place] # (Auto) Seg Neutrophils % Seg Neuts % (Manual) Lymphocytes % (Manual) Monocytes % (Manual) Nucleated RBC % Seg Neutrophils # Seg Neutrophils # Man Lymphocytes # (Manual) Monocytes # (Manual) PT INR D-Dimer ABG pH POC ABG pCO2 POC ABG pO2 ABG pO2 ABG HCO3 ABG Base Excess ABG Hemoglobin ABG Oxyhemoglobin ABG Sodium ABG Potassium ABG Chloride ABG Glucose Carboxyhemoglobin Sodium 135 L Potassium Chloride 92.3 L Carbon Dioxide BUN 62 H Creatinine 3.7 H Glucose 406 H POC Glucose 372 H 359 H Lactic Acid Calcium Phosphorus Ferritin Total Bilirubin Direct Bilirubin AST 687 H ALT 3701 H Lactate Dehydrogenase Total Creatine Kinase Troponin T Total Protein 5.8 L Albumin 3.1 L Triglycerides Arterial Blood Glucose Arterial Blood Ionized Calcium Urine pH Urine Creatinine Salicylates Acetaminophen Coronavirus (PCR) 09/12/20 09/12/20 09/12/20 03:18 04:00 04:00 WBC 13.7 H RBC 3.30 L Hgb 9.3 L Hct 27.6 L MCHC RDW 17.5 H Lymph % (Auto) [place] % (Auto) Lymph # (Auto) [place] # (Auto) Seg Neutrophils % Seg Neuts % (Manual) 76.0 H Lymphocytes % (Manual) 11.0 L Monocytes % (Manual) 13.0 H Nucleated RBC % Seg Neutrophils # Seg Neutrophils # Man 10.4 H Lymphocytes # (Manual) Monocytes # (Manual) 1.8 H PT 16.1 H INR 1.31 H D-Dimer ABG pH 7.558 H POC ABG pCO2 POC ABG pO2 74.7 L ABG pO2 ABG HCO3 ABG Base Excess ABG Hemoglobin 9.7 L ABG Oxyhemoglobin ABG Sodium 132.4 L ABG Potassium ABG Chloride 95.0 L ABG Glucose 437 H Carboxyhemoglobin Sodium Potassium Chloride Carbon Dioxide BUN Creatinine Glucose POC Glucose Lactic Acid Calcium Phosphorus Ferritin Total Bilirubin Direct Bilirubin AST ALT Lactate Dehydrogenase Total Creatine Kinase Troponin T Total Protein Albumin Triglycerides Arterial Blood Glucose 437 H Arterial Blood Ionized Calcium 4.3 L Urine pH Urine Creatinine Salicylates Acetaminophen Coronavirus (PCR) 09/12/20 09/12/20 09/12/20 04:21 05:20 06:37 WBC RBC Hgb Hct MCHC RDW Lymph % (Auto) [place] % (Auto) Lymph # (Auto) [place] # (Auto) Seg Neutrophils % Seg Neuts % (Manual) Lymphocytes % (Manual) Monocytes % (Manual) Nucleated RBC % Seg Neutrophils # Seg Neutrophils # Man Lymphocytes # (Manual) Monocytes # (Manual) PT INR D-Dimer ABG pH POC ABG pCO2 POC ABG pO2 ABG pO2 ABG HCO3 ABG Base Excess ABG Hemoglobin ABG Oxyhemoglobin ABG Sodium ABG Potassium ABG Chloride ABG Glucose Carboxyhemoglobin Sodium Potassium Chloride Carbon Dioxide BUN Creatinine Glucose POC Glucose 417 H 397 H 370 H Lactic Acid Calcium Phosphorus Ferritin Total Bilirubin Direct Bilirubin AST ALT Lactate Dehydrogenase Total Creatine Kinase Troponin T Total Protein Albumin Triglycerides Arterial Blood Glucose Arterial Blood Ionized Calcium Urine pH Urine Creatinine Salicylates Acetaminophen Coronavirus (PCR) 09/12/20 09/12/20 09/12/20 11:56 17:14 21:52 WBC RBC Hgb Hct MCHC RDW Lymph % (Auto) [place] % (Auto) Lymph # (Auto) [place] # (Auto) Seg Neutrophils % Seg Neuts % (Manual) Lymphocytes % (Manual) Monocytes % (Manual) Nucleated RBC % Seg Neutrophils # Seg Neutrophils # Man Lymphocytes # (Manual) Monocytes # (Manual) PT INR D-Dimer ABG pH POC ABG pCO2 POC ABG pO2 ABG pO2 ABG HCO3 ABG Base Excess ABG Hemoglobin ABG Oxyhemoglobin ABG Sodium ABG Potassium ABG Chloride ABG Glucose Carboxyhemoglobin Sodium Potassium Chloride Carbon Dioxide BUN Creatinine Glucose POC Glucose 341 H 325 H 285 H Lactic Acid Calcium Phosphorus Ferritin Total Bilirubin Direct Bilirubin AST ALT Lactate Dehydrogenase Total Creatine Kinase Troponin T Total Protein Albumin Triglycerides Arterial Blood Glucose Arterial Blood Ionized Calcium Urine pH Urine Creatinine Salicylates Acetaminophen Coronavirus (PCR) 09/12/20 09/12/20 09/12/20 23:39 Unknown Unknown WBC RBC Hgb Hct MCHC RDW Lymph % (Auto) [place] % (Auto) Lymph # (Auto) [place] # (Auto) Seg Neutrophils % Seg Neuts % (Manual) Lymphocytes % (Manual) Monocytes % (Manual) Nucleated RBC % Seg Neutrophils # Seg Neutrophils # Man Lymphocytes # (Manual) Monocytes # (Manual) PT INR D-Dimer ABG pH POC ABG pCO2 POC ABG pO2 ABG pO2 ABG HCO3 ABG Base Excess ABG Hemoglobin ABG Oxyhemoglobin ABG Sodium ABG Potassium ABG Chloride ABG Glucose Carboxyhemoglobin Sodium 135 L Potassium Chloride 92.2 L Carbon Dioxide BUN 65 H Creatinine 3.5 H Glucose 418 H POC Glucose 338 H Lactic Acid Calcium Phosphorus Ferritin Total Bilirubin Direct Bilirubin AST 553 H ALT 3453 H Lactate Dehydrogenase Total Creatine Kinase Troponin T Total Protein 5.9 L Albumin 3.0 L Triglycerides 220 H Arterial Blood Glucose Arterial Blood Ionized Calcium Urine pH Urine Creatinine Salicylates Acetaminophen Coronavirus (PCR) 09/13/20 09/13/20 09/13/20 04:47 05:24 10:50 WBC RBC Hgb Hct MCHC RDW Lymph % (Auto) [place] % (Auto) Lymph # (Auto) [place] # (Auto) Seg Neutrophils % Seg Neuts % (Manual) Lymphocytes % (Manual) Monocytes % (Manual) Nucleated RBC % Seg Neutrophils # Seg Neutrophils # Man Lymphocytes # (Manual) Monocytes # (Manual) PT INR D-Dimer ABG pH 7.571 H POC ABG pCO2 POC ABG pO2 69.0 L ABG pO2 ABG HCO3 ABG Base Excess ABG Hemoglobin 10.1 L ABG Oxyhemoglobin 93.2 L ABG Sodium 134.0 L ABG Potassium ABG Chloride ABG Glucose 365 H Carboxyhemoglobin 0.4 L Sodium Potassium Chloride 96.6 L Carbon Dioxide 32 H BUN 76 H Creatinine 3.1 H Glucose 395 H POC Glucose 329 H Lactic Acid Calcium Phosphorus Ferritin Total Bilirubin Direct Bilirubin AST ALT Lactate Dehydrogenase Total Creatine Kinase Troponin T Total Protein Albumin Triglycerides Arterial Blood Glucose 365 H Arterial Blood Ionized Calcium Urine pH Urine Creatinine Salicylates Acetaminophen Coronavirus (PCR) 09/13/20 09/13/20 09/13/20 11:39 17:48 23:35 WBC RBC Hgb Hct MCHC RDW Lymph % (Auto) [place] % (Auto) Lymph # (Auto) [place] # (Auto) Seg Neutrophils % Seg Neuts % (Manual) Lymphocytes % (Manual) Monocytes % (Manual) Nucleated RBC % Seg Neutrophils # Seg Neutrophils # Man Lymphocytes # (Manual) Monocytes # (Manual) PT INR D-Dimer ABG pH POC ABG pCO2 POC ABG pO2 ABG pO2 ABG HCO3 ABG Base Excess ABG Hemoglobin ABG Oxyhemoglobin ABG Sodium ABG Potassium ABG Chloride ABG Glucose Carboxyhemoglobin Sodium Potassium Chloride Carbon Dioxide BUN Creatinine Glucose POC Glucose 344 H 286 H 223 H Lactic Acid Calcium Phosphorus Ferritin Total Bilirubin Direct Bilirubin AST ALT Lactate Dehydrogenase Total Creatine Kinase Troponin T Total Protein Albumin Triglycerides Arterial Blood Glucose Arterial Blood Ionized Calcium Urine pH Urine Creatinine Salicylates Acetaminophen Coronavirus (PCR) 09/14/20 09/14/20 03:54 05:34 WBC RBC Hgb Hct MCHC RDW Lymph % (Auto) [place] % (Auto) Lymph # (Auto) [place] # (Auto) Seg Neutrophils % Seg Neuts % (Manual) Lymphocytes % (Manual) Monocytes % (Manual) Nucleated RBC % Seg Neutrophils # Seg Neutrophils # Man Lymphocytes # (Manual) Monocytes # (Manual) PT INR D-Dimer ABG pH POC ABG pCO2 POC ABG pO2 71.1 L ABG pO2 ABG HCO3 ABG Base Excess ABG Hemoglobin 10.3 L ABG Oxyhemoglobin ABG Sodium 135.2 L ABG Potassium ABG Chloride ABG Glucose 281 H Carboxyhemoglobin Sodium Potassium Chloride Carbon Dioxide BUN Creatinine Glucose POC Glucose 252 H Lactic Acid Calcium Phosphorus Ferritin Total Bilirubin Direct Bilirubin AST ALT Lactate Dehydrogenase Total Creatine Kinase Troponin T Total Protein Albumin Triglycerides Arterial Blood Glucose 281 H Arterial Blood Ionized Calcium Urine pH Urine Creatinine Salicylates Acetaminophen Coronavirus (PCR)
--- NOTE | 2020-09-14 12:32 | Progress Note ---
Assessment and Plan Cultures: Blood culture 09/07/2020 no growth SARS CoV2 PCR positive 09/07/2020 urine culture: No growth HIV, hepatitis panel: Negative Assessment: 65 years old male with unknown medical history, morbidly obese, brought to the ED by EMS on 09/07/2020 secondary to passing out, found in out of hospital cardiac arrest status post resuscitation, intubated in the field: #[id number] cardiac arrest/shock #Bilateral pneumonia secondary to COVID-19 infection. Inflammatory markers elevated. D-dimer was 8315. apparently, patient was recently hospitalized at the [facility] for COVID-19 prior to admission here. Not a candidate for remdesivir due to hepatic and renal failure #Acute hypoxic respiratory failure: on the vent. #Acute renal failure: Creatinine elevated. Likely secondary to cardiac arrest/COVID-19 infection #Shock liver, transaminitis: Viral hepatitis panel negative. #Acute Encephalopathy: Initial GCS 3, noted myoclonic jerking.? Anoxic brain injury. Appreciate neurology evaluation. Recs: -continue off abx. Fevers likely central in etiology -Poor prognosis Marisol Stock MD, FACP [facility] O: [phone] F: [phone] Subjective Date of service: 09/14/20 Principal diagnosis: Abnormal LFTs, s/p cardiac arrest, acute kidney injury with ATN Interval history: Fever again. Remains on the vent. Unresponsive. Objective - Exam Narrative Exam: Physical Exam (reviewed in chart to minimize risk of transmission) Constitutional: deferred Head, Ears, Nose: deferred Eyes: deferred Neck: deferred Oral: deferred Cardiovascular: deferred Respiratory: deferred GI: deferred Musculoskeletal: deferred Skin: deferred Hem/Lymphatic: deferred Psych: deferred Neurological: deferred - Constitutional Vitals: Vital Signs Temp Pulse Resp BP Pulse Ox 102.9 F H 71 30 H 121/54 97 09/14/20 08:00 09/14/20 10:11 09/14/20 10:11 09/14/20 10:11 09/14/20 10:11 Temperature -Last 24 Hours Temperature 102.9 F Temperature 100.6 F Temperature 99.4 F Temperature 98.9 F Temperature 98.4 F - Labs CBC & Chem 7: 09/12/20 04:00 09/14/20 10:27 Labs: Abnormal lab results 09/13/20 09/13/20 09/14/20 Range/Units 17:48 23:35 03:54 POC ABG pO2 71.1 L (83-108) mmHg ABG Hemoglobin 10.3 L (12.0-17.5) ABG Sodium 135.2 L (136.0-145.0) mmol/L ABG Glucose 281 H (65-95) mg/dL Chloride (98-107) mmol/L BUN (9-20) mg/dL Creatinine (0.8-1.3) mg/dL Glucose (75-100) mg/dL POC Glucose 286 H 223 H (70-105) mg/dL AST (5-40) units/L ALT (7-56) units/L Total Protein (6.3-8.2) g/dL Albumin (3.9-5) g/dL Arterial Blood Glucose 281 H (65-95) mg/dL 09/14/20 09/14/20 Range/Units 05:34 10:27 POC ABG pO2 (83-108) mmHg ABG Hemoglobin (12.0-17.5) ABG Sodium (136.0-145.0) mmol/L ABG Glucose (65-95) mg/dL Chloride 96.6 L (98-107) mmol/L BUN 100 H (9-20) mg/dL Creatinine 3.9 H (0.8-1.3) mg/dL Glucose 286 H (75-100) mg/dL POC Glucose 252 H (70-105) mg/dL AST 145 H (5-40) units/L ALT 1400 H (7-56) units/L Total Protein 5.6 L (6.3-8.2) g/dL Albumin 2.9 L (3.9-5) g/dL Arterial Blood Glucose (65-95) mg/dL
[2020-09-14] MEDS ORDERED: SODIUM CHLORIDE 0.9% 100 ML IV PRN (19:16)
--- NOTE | 2020-09-14 19:20 | Progress Note ---
Assessment and Plan Impression: * Nonoliguric RYAN secondary to ATN * Severe hyperkalemia - resolved * COVID 19 PNA * s/p OOH cardiac arrest * Acute hypoxic respiratory failure * Seizure activity * Anemia Plan: * Patient is s/p emergent HD on Friday (hyperK) and Friday * Plan for HD tomorrow * Please check labs daily * Strict I/O * Keep MAP > 65 * Vent management per CCM * Steroids per primary team/ID * Dose medications for renal function * Avoid potential nephrotoxins * Prognosis is guarded Subjective Date of service: 09/14/20 Principal diagnosis: Abnormal LFTs, s/p cardiac arrest, acute kidney injury with ATN Interval history: Mental status unchanged Remains intubated Patient followed for his renal issues Nursing, interdisciplinary and consult notes were reviewed Vitals, input and output, medications and labs were reviewed Objective - Exam Narrative Exam: Deferred for PPE conservation and to prevent spread of infection - Vital Signs Vital signs: Vital Signs - 12hr 09/14/20 09/14/20 09/14/20 07:21 07:30 07:41 Temperature Pulse Rate 77 77 78 Pulse Rate [ Apical] Respiratory 8 L 26 H 16 Rate Blood Pressure 107/46 105/50 105/50 O2 Sat by Pulse 96 94 96 Oximetry 09/14/20 09/14/20 09/14/20 07:51 08:00 08:11 Temperature 102.9 F H Pulse Rate 79 77 80 Pulse Rate [ 77 Apical] Respiratory 24 31 H 27 H Rate Blood Pressure 105/50 107/45 107/45 O2 Sat by Pulse 96 97 96 Oximetry 09/14/20 09/14/20 09/14/20 08:15 08:21 08:30 Temperature Pulse Rate 73 77 74 Pulse Rate [ Apical] Respiratory 20 30 H Rate Blood Pressure 123/54 107/45 101/50 O2 Sat by Pulse 97 96 96 Oximetry 09/14/20 09/14/20 09/14/20 08:41 08:51 09:00 Temperature Pulse Rate 73 72 72 Pulse Rate [ Apical] Respiratory 25 H 29 H 30 H Rate Blood Pressure 101/50 123/54 130/52 O2 Sat by Pulse 97 97 95 Oximetry 09/14/20 09/14/20 09/14/20 09:11 09:21 09:30 Temperature Pulse Rate 72 71 Pulse Rate [ Apical] Respiratory 19 30 H Rate Blood Pressure 130/52 112/51 124/54 O2 Sat by Pulse 96 97 94 Oximetry 09/14/20 09/14/20 09/14/20 09:41 09:51 10:00 Temperature Pulse Rate 75 73 72 Pulse Rate [ Apical] Respiratory 29 H 31 H 30 H Rate Blood Pressure 124/54 124/53 121/54 O2 Sat by Pulse 97 97 96 Oximetry 09/14/20 09/14/20 09/14/20 10:11 10:21 10:30 Temperature Pulse Rate 71 70 69 Pulse Rate [ Apical] Respiratory 30 H 30 H 21 Rate Blood Pressure 121/54 120/51 118/50 O2 Sat by Pulse 97 98 96 Oximetry 09/14/20 09/14/20 09/14/20 10:41 10:51 11:00 Temperature Pulse Rate 69 69 69 Pulse Rate [ Apical] Respiratory 21 21 27 H Rate Blood Pressure 118/50 121/53 126/52 O2 Sat by Pulse 98 98 97 Oximetry 09/14/20 09/14/20 09/14/20 11:11 11:21 11:30 Temperature Pulse Rate 69 69 70 Pulse Rate [ Apical] Respiratory 19 18 27 H Rate Blood Pressure 126/52 124/54 125/54 O2 Sat by Pulse 99 98 97 Oximetry 09/14/20 09/14/20 09/14/20 11:41 11:51 12:00 Temperature 102 F H Pulse Rate 70 70 72 Pulse Rate [ 75 Apical] Respiratory 18 22 31 H Rate Blood Pressure 125/54 125/56 127/48 O2 Sat by Pulse 99 100 98 Oximetry 09/14/20 09/14/20 09/14/20 12:01 12:10 12:20 Temperature Pulse Rate 71 79 81 Pulse Rate [ Apical] Respiratory 31 H 29 H 25 H Rate Blood Pressure 125/56 116/80 O2 Sat by Pulse 98 95 95 Oximetry 09/14/20 09/14/20 09/14/20 12:31 12:41 12:51 Temperature Pulse Rate 85 83 84 Pulse Rate [ Apical] Respiratory 29 H 25 H 23 Rate Blood Pressure 116/80 142/54 O2 Sat by Pulse 95 96 96 Oximetry 09/14/20 09/14/20 09/14/20 13:01 13:11 13:21 Temperature Pulse Rate 83 81 75 Pulse Rate [ Apical] Respiratory 30 H 30 H 10 L Rate Blood Pressure 149/55 149/55 123/52 O2 Sat by Pulse 96 97 98 Oximetry 09/14/20 09/14/20 09/14/20 13:30 13:41 13:51 Temperature Pulse Rate 74 72 72 Pulse Rate [ Apical] Respiratory 7 L 30 H 32 H Rate Blood Pressure 112/51 112/51 110/44 O2 Sat by Pulse 98 97 97 Oximetry 09/14/20 09/14/20 09/14/20 14:00 14:11 14:21 Temperature Pulse Rate 71 72 72 Pulse Rate [ Apical] Respiratory 30 H 30 H 30 H Rate Blood Pressure 122/46 122/46 119/47 O2 Sat by Pulse 95 97 97 Oximetry 09/14/20 09/14/20 09/14/20 14:30 14:41 14:51 Temperature Pulse Rate 71 72 71 Pulse Rate [ Apical] Respiratory 31 H 29 H 31 H Rate Blood Pressure 123/48 123/48 124/49 O2 Sat by Pulse 95 97 98 Oximetry 09/14/20 09/14/20 09/14/20 15:00 15:11 15:21 Temperature Pulse Rate 70 71 71 Pulse Rate [ Apical] Respiratory 30 H 32 H 31 H Rate Blood Pressure 131/49 131/49 129/52 O2 Sat by Pulse 95 98 98 Oximetry 09/14/20 09/14/20 09/14/20 15:31 15:41 15:51 Temperature Pulse Rate 72 72 72 Pulse Rate [ Apical] Respiratory 31 H 30 H 31 H Rate Blood Pressure 127/48 127/48 134/51 O2 Sat by Pulse 96 98 98 Oximetry 09/14/20 09/14/20 09/14/20 16:00 16:01 16:11 Temperature 101.5 F H Pulse Rate 71 73 Pulse Rate [ Apical] Respiratory 30 H 32 H Rate Blood Pressure 134/51 134/51 O2 Sat by Pulse 95 97 Oximetry 09/14/20 09/14/20 09/14/20 16:21 16:30 16:41 Temperature Pulse Rate 71 71 73 Pulse Rate [ Apical] Respiratory 31 H 30 H 27 H Rate Blood Pressure 131/55 132/52 132/52 O2 Sat by Pulse 98 95 98 Oximetry 09/14/20 09/14/20 09/14/20 16:51 17:01 17:05 Temperature Pulse Rate 70 71 73 Pulse Rate [ Apical] Respiratory 30 H 31 H Rate Blood Pressure 143/53 136/53 135/56 O2 Sat by Pulse 98 95 97 Oximetry 09/14/20 09/14/20 09/14/20 17:11 17:21 17:31 Temperature Pulse Rate 71 72 71 Pulse Rate [ Apical] Respiratory 32 H 28 H 31 H Rate Blood Pressure 136/53 135/56 135/52 O2 Sat by Pulse 98 98 95 Oximetry 09/14/20 09/14/20 09/14/20 17:41 17:51 18:01 Temperature Pulse Rate 71 70 71 Pulse Rate [ Apical] Respiratory 31 H 31 H 30 H Rate Blood Pressure 135/52 136/51 139/58 O2 Sat by Pulse 98 98 95 Oximetry 09/14/20 09/14/20 09/14/20 18:11 18:21 18:31 Temperature Pulse Rate 70 70 71 Pulse Rate [ Apical] Respiratory 30 H 30 H 31 H Rate Blood Pressure 139/58 138/61 139/57 O2 Sat by Pulse 99 99 95 Oximetry - Lab 09/12/20 04:00 09/14/20 10:27 Most recent lab results ABG pH 7.442 (7.320-7.450) 09/14/20 03:54 ABG pCO2 33.4 mm Hg 09/11/20 05:40 ABG pO2 112.1 mm Hg (80.0-90.0) H 09/11/20 05:40 ABG HCO3 28.1 mmol/L (20.0-26.0) H 09/11/20 05:40 ABG O2 Saturation 98.4 % (95.0-99.0) 09/11/20 05:40 Calcium 8.5 mg/dL (8.4-10.2) 09/14/20 10:27 Phosphorus 8.00 mg/dL (2.5-4.5) H 09/08/20 12:02 Magnesium 1.80 mg/dL (1.7-2.3) 09/08/20 12:02 Urine Creatinine 182.4 mg/dL (0.1-20.0) H 09/08/20 Unknown Urine Sodium 40 mmol/L 09/08/20 Unknown Medications & Allergies - Medications Allergies/Adverse Reactions: Allergies Unable to Assess Allergy (Verified 09/07/20 13:43) intubated Home Medications: Home Medications Medication Instructions Recorded Confirmed Last Taken Type Albuterol Sulfate 60 mcg IH PRN 09/11/20 09/11/20 Unknown History Cholecalciferol (Vitamin D3) 25 tab PO DAILY 09/11/20 09/11/20 Unknown History Cozaar 25 tab PO DAILY 09/11/20 09/11/20 Unknown History HumaLOG 14 unit SQ AC 09/11/20 09/11/20 Unknown History Hydralazine HCl 50 tab PO TID 09/11/20 09/11/20 Unknown History Isosorbide Dinitrate 30 mg PO DAILY 09/11/20 09/11/20 Unknown History Lantus VIAL 54 units SQ HS 09/11/20 09/11/20 Unknown History Lasix 20 tab PO DAILY 09/11/20 09/11/20 Unknown History Nifedipine 30 tab PO DAILY 09/11/20 09/11/20 Unknown History Active Medications: Generic Name Dose Route Start Last Admin Trade Name Freq PRN Reason Stop Dose Admin Acetaminophen 400 mg 09/10/20 20:50 09/14/20 08:12 Acetaminophen 325 Mg/10.15 Ml Oral Liqd Unit Dose PO 400 mg Q4HR PRN Administration Non Cardiac Pain or Temp>100.5 Lipase/Protease/Amylase 1 each 09/09/20 09:40 Lipase 10,500/Protease 25,000/Amylase 43,750 (Units) Dr Cap FEEDTUBE PRN PRN For Clogged Feeding Tube Hydrophilic Ointment 1 applic 09/07/20 13:08 Lip Therapy Vaseline TP Q2HR PRN Dry Lips Norepinephrine 4 mg in 250 mls @ 7.5 mls/hr 09/08/20 01:30 09/14/20 08:13 Levophed Drip 4 Mg/Ns 250 Ml IV 2 mcg/min TITR TAYLOR 7.5 mls/hr Administration Protocol 2 MCG/MIN Lorazepam 100 mg/ Sodium 100 mls @ 1 mls/hr 09/08/20 04:00 09/12/20 17:22 Chloride/ Miscellaneous IV 0 mg/hr Information TITR TAYLOR 0 mls/hr Titration Protocol 1 MG/HR Propofol 1,000 mg in 100 mls @ 4.995 mls/hr 09/08/20 20:00 09/14/20 17:01 Diprivan 10 Mg/Ml IV 25 mcg/kg/min TITR TAYLOR 24.975 mls/hr Administration Protocol 5 MCG/KG/MIN Sodium Chloride 100 mls @ 999 mls/hr 09/09/20 13:36 Nacl 0.9% IV JAYJAY PRN Hypotension Levetiracetam 1,500 mg/ 115 mls @ 400 mls/hr 09/11/20 10:00 09/14/20 09:16 Dextrose IV 400 mls/hr BID TAYLOR Administration Valproate Sodium 1,000 mg/ 110 mls @ 100 mls/hr 09/14/20 22:00 Sodium Chloride IV Q12HR TAYLOR Sodium Chloride 100 mls @ 999 mls/hr 09/14/20 19:16 Nacl 0.9% IV JAYJAY PRN Hypotension Insulin Glargine 30 units 09/14/20 22:00 Insulin Glargine 100 Units/Ml SUB-Q BID TAYLOR Insulin Human Lispro 0 unit 09/12/20 12:00 09/14/20 17:57 Insulin Lispro 100 Unit/Ml SUB-Q 4 unit Q6HR TAYLOR Administration Protocol Lansoprazole 30 mg 09/11/20 11:00 09/14/20 09:17 Lansoprazole 30 Mg Solutab FEEDTUBE 30 mg BID TAYLOR Administration Lorazepam 2 mg 09/08/20 00:14 09/14/20 13:36 Lorazepam 2 Mg/Ml Vial IV 2 mg Q4H PRN Administration Seizures Multi-Ingred Cream/Lotion/Oil/Oint 1 applic 09/07/20 13:08 Mineral Oil/Petrolatum, White Ophth Oint 3.5 Gm OU Q4HR PRN Dry Eye(s) Multivitamins 5 ml 09/09/20 12:00 09/14/20 09:17 Multivitamins 5 Ml Oral Liquid PO 5 ml QDAY TAYLOR Administration Ondansetron HCl 4 mg 09/07/20 17:55 Ondansetron 4 Mg/2 Ml Inj IV Q8H PRN Nausea And Vomiting Senna/Docusate Sodium 2 tab 09/13/20 11:00 09/14/20 09:17 Sennosides/Docusate Sodium 8.6/50 Mg Tab PO 2 tab BID TAYLOR Administration Simple Syrup 15 ml 09/09/20 09:40 Simple Syrup 15 Ml FEEDTUBE PRN PRN Hypoglycemia Simple Syrup 30 ml 09/09/20 09:40 Simple Syrup 15 Ml FEEDTUBE PRN PRN Hypoglycemia Sodium Bicarbonate 325 mg 09/09/20 09:40 Sodium Bicarbonate 325 Mg Tab FEEDTUBE PRN PRN For Clogged Feeding Tube Sodium Chloride 10 ml 09/07/20 22:00 09/14/20 09:18 Sodium Chloride 0.9% 10 Ml Flush Syringe IV 10 ml BID TAYLOR Administration Sodium Chloride 10 ml 09/07/20 17:55 Sodium Chloride 0.9% 10 Ml Flush Syringe IV PRN PRN LINE FLUSH
--- NOTE | 2020-09-14 21:23 | Consultation ---
History of Present Illness Consult date: 09/14/20 Requesting physician: ANDRES SWIFT Reason for Consult: Anoxic brain injury Chief complaint: altered mental status History of present illness: Dajuan Navarrete is a 65 y/o Male that was brought to [facility] ER after a cardiopulmonary arrest. He reportedly became unresponsive while awaiting the results of a COVID test. He was immediately intubated upon arrival to the ER. He was found to have acute renal failure. He was transferred the ICU for further evaluation. Since his admission, he has remained in critical condition and unconscious. CT 2/3 revealed diffuse cerebral edema consistent with anoxic injury. He was seen and evaluated by the Neurology service. EEG was notable for low voltage delta activity. NSGY was consulted for further evaluation. Past History Past Medical History: other (Unobtainable) Past Surgical History: Other (Unobtainable) Social history: other (Unobtainable) Family history: other (Unobtainable) Medications and Allergies Allergies Allergy/AdvReac Type Severity Reaction Status Date / Time Unable to Assess Allergy Verified 09/07/20 13:43 Home Medications Medication Instructions Recorded Confirmed Last Taken Type Albuterol Sulfate 60 mcg IH PRN 09/11/20 09/11/20 Unknown History Cholecalciferol (Vitamin D3) 25 tab PO DAILY 09/11/20 09/11/20 Unknown History Cozaar 25 tab PO DAILY 09/11/20 09/11/20 Unknown History HumaLOG 14 unit SQ AC 09/11/20 09/11/20 Unknown History Hydralazine HCl 50 tab PO TID 09/11/20 09/11/20 Unknown History Isosorbide Dinitrate 30 mg PO DAILY 09/11/20 09/11/20 Unknown History Lantus VIAL 54 units SQ HS 09/11/20 09/11/20 Unknown History Lasix 20 tab PO DAILY 09/11/20 09/11/20 Unknown History Nifedipine 30 tab PO DAILY 09/11/20 09/11/20 Unknown History Active Meds: Active Medications Acetaminophen (Acetaminophen 325 Mg/10.15 Ml Oral Liqd Unit Dose) 400 mg PO Q4HR PRN PRN Reason: Non Cardiac Pain or Temp>100.5 Last Admin: 09/14/20 08:12 Dose: 400 mg Documented by: Lipase/Protease/Amylase (Lipase 10,500/Protease 25,000/Amylase 43,750 (Units) Dr Cap) 1 each FEEDTUBE PRN PRN PRN Reason: For Clogged Feeding Tube Hydrophilic Ointment (Lip Therapy Vaseline) 1 applic TP Q2HR PRN PRN Reason: Dry Lips Norepinephrine (Levophed Drip 4 Mg/Ns 250 Ml) 4 mg in 250 mls @ 7.5 mls/hr IV TITR TAYLOR; Protocol Last Admin: 09/14/20 08:13 Dose: 2 mcg/min, 7.5 mls/hr Documented by: Lorazepam 100 mg/ Sodium Chloride/ Miscellaneous Information 100 mls @ 1 mls/hr IV TITR TAYLOR; Protocol Last Titration: 09/12/20 17:22 Dose: 0 mg/hr, 0 mls/hr Documented by: Propofol (Diprivan 10 Mg/Ml) 1,000 mg in 100 mls @ 4.995 mls/hr IV TITR TAYLOR; Protocol Last Titration: 09/14/20 20:08 Dose: 10 mcg/kg/min, 9.99 mls/hr Documented by: Sodium Chloride (Nacl 0.9%) 100 mls @ 999 mls/hr IV JAYJAY PRN PRN Reason: Hypotension Levetiracetam 1,500 mg/ (Dextrose) 115 mls @ 400 mls/hr IV BID TAYLOR Last Admin: 09/14/20 09:16 Dose: 400 mls/hr Documented by: Valproate Sodium 1,000 mg/ (Sodium Chloride) 110 mls @ 100 mls/hr IV Q12HR T[facility] Insulin Glargine (Insulin Glargine 100 Units/Ml) 30 units SUB-Q BID TAYLOR Insulin Human Lispro (Insulin Lispro 100 Unit/Ml) 0 unit SUB-Q Q6HR TAYLOR; Pro tocol Last Admin: 09/14/20 17:57 Dose: 4 unit Documented by: Lansoprazole (Lansoprazole 30 Mg Solutab) 30 mg FEEDTUBE BID TAYLOR Last Admin: 09/14/20 09:17 Dose: 30 mg Documented by: Lorazepam (Lorazepam 2 Mg/Ml Vial) 2 mg IV Q4H PRN PRN Reason: Seizures Last Admin: 09/14/20 13:36 Dose: 2 mg Documented by: Multi-Ingred Cream/Lotion/Oil/Oint (Mineral Oil/Petrolatum, White Ophth Oint 3.5 Gm) 1 applic OU Q4HR PRN PRN Reason: Dry Eye(s) Multivitamins (Multivitamins 5 Ml Oral Liquid) 5 ml PO QDAY [facility] Last Admin: 09/14/20 09:17 Dose: 5 ml Documented by: Ondansetron HCl (Ondansetron 4 Mg/2 Ml Inj) 4 mg IV Q8H PRN PRN Reason: Nausea And Vomiting Senna/Docusate Sodium (Sennosides/Docusate Sodium 8.6/50 Mg Tab) 2 tab PO BID [facility] Last Admin: 09/14/20 09:17 Dose: 2 tab Documented by: Simple Syrup (Simple Syrup 15 Ml) 15 ml FEEDTUBE PRN PRN PRN Reason: Hypoglycemia Simple Syrup (Simple Syrup 15 Ml) 30 ml FEEDTUBE PRN PRN PRN Reason: Hypoglycemia Sodium Bicarbonate (Sodium Bicarbonate 325 Mg Tab) 325 mg FEEDTUBE PRN PRN PRN Reason: For Clogged Feeding Tube Sodium Chloride (Sodium Chloride 0.9% 10 Ml Flush Syringe) 10 ml IV BID [facility] Last Admin: 09/14/20 09:18 Dose: 10 ml Documented by: Sodium Chloride (Sodium Chloride 0.9% 10 Ml Flush Syringe) 10 ml IV PRN PRN PRN Reason: LINE FLUSH Review of Systems All systems: negative (What is indicated in HPI) Physical Examination - Vital Signs Vital Signs: Vital Signs Pulse BP Pulse Ox 82 197/91 92 09/07/20 13:00 09/07/20 13:00 09/07/20 13:00 - Physical Exam Narrative exam: seen and examined at the bedside intubated sedated on propofol 25 mcg no eye opening pupils 4 mm, non-reactive corneals (-) b/l sluggish cough no extremity response to deep central or peripheral stimuli Results - Laboratory Findings CBC and BMP: 09/12/20 04:00 09/14/20 10:27 Abnormal Lab Findings: Abnormal Labs 09/07/20 09/07/20 09/07/20 13:08 14:00 14:00 WBC 15.7 H RBC Hgb 10.2 L Hct 32.5 L MCHC 31 L RDW 17.5 H Lymph % (Auto) [place] % (Auto) Lymph # (Auto) [place] # (Auto) Seg Neutrophils % Seg Neuts % (Manual) 72.0 H Lymphocytes % (Manual) Monocytes % (Manual) 8.0 H Nucleated RBC % Seg Neutrophils # Seg Neutrophils # Man 11.3 H Lymphocytes # (Manual) Monocytes # (Manual) 1.3 H PT INR D-Dimer 8315.85 H ABG pH POC ABG pCO2 POC ABG pO2 ABG pO2 ABG HCO3 ABG Base Excess ABG Hemoglobin ABG Oxyhemoglobin ABG Sodium ABG Potassium ABG Chloride ABG Glucose Carboxyhemoglobin Sodium Potassium Chloride Carbon Dioxide BUN Creatinine Glucose POC Glucose Lactic Acid Calcium Phosphorus Ferritin Total Bilirubin Direct Bilirubin AST ALT Lactate Dehydrogenase Total Creatine Kinase Troponin T Total Protein Albumin Triglycerides Arterial Blood Glucose Arterial Blood Ionized Calcium Urine pH 8.0 H Urine Creatinine Salicylates Acetaminophen Coronavirus (PCR) 09/07/20 09/07/20 09/07/20 14:00 14:00 14:00 WBC RBC Hgb Hct MCHC RDW Lymph % (Auto) [place] % (Auto) Lymph # (Auto) [place] # (Auto) Seg Neutrophils % Seg Neuts % (Manual) Lymphocytes % (Manual) Monocytes % (Manual) Nucleated RBC % Seg Neutrophils # Seg Neutrophils # Man Lymphocytes # (Manual) Monocytes # (Manual) PT INR D-Dimer ABG pH POC ABG pCO2 POC ABG pO2 ABG pO2 ABG HCO3 ABG Base Excess ABG Hemoglobin ABG Oxyhemoglobin ABG Sodium ABG Potassium ABG Chloride ABG Glucose Carboxyhemoglobin Sodium Potassium Chloride Carbon Dioxide BUN Creatinine Glucose POC Glucose Lactic Acid 4.30 H* Calcium Phosphorus Ferritin > 2000.0 H Total Bilirubin Direct Bilirubin AST ALT Lactate Dehydrogenase 882 H Total Creatine Kinase 477 H Troponin T 0.076 H Total Protein Albumin Triglycerides Arterial Blood Glucose Arterial Blood Ionized Calcium Urine pH Urine Creatinine Salicylates Acetaminophen Coronavirus (PCR) 09/07/20 09/07/20 09/07/20 14:00 14:00 14:00 WBC RBC Hgb Hct MCHC RDW Lymph % (Auto) [place] % (Auto) Lymph # (Auto) [place] # (Auto) Seg Neutrophils % Seg Neuts % (Manual) Lymphocytes % (Manual) Monocytes % (Manual) Nucleated RBC % Seg Neutrophils # Seg Neutrophils # Man Lymphocytes # (Manual) Monocytes # (Manual) PT INR D-Dimer ABG pH POC ABG pCO2 POC ABG pO2 ABG pO2 ABG HCO3 ABG Base Excess ABG Hemoglobin ABG Oxyhemoglobin ABG Sodium ABG Potassium ABG Chloride ABG Glucose Carboxyhemoglobin Sodium Potassium Chloride Carbon Dioxide BUN Creatinine 1.8 H Glucose POC Glucose Lactic Acid Calcium Phosphorus Ferritin Total Bilirubin Direct Bilirubin AST 310 H ALT 339 H Lactate Dehydrogenase Total Creatine Kinase Troponin T Total Protein Albumin 3.6 L Triglycerides Arterial Blood Glucose Arterial Blood Ionized Calcium Urine pH Urine Creatinine Salicylates < 0.3 L Acetaminophen 5.0 L Coronavirus (PCR) 09/07/20 09/08/20 09/08/20 14:26 04:00 04:17 WBC RBC Hgb Hct MCHC RDW Lymph % (Auto) [place] % (Auto) Lymph # (Auto) [place] # (Auto) Seg Neutrophils % Seg Neuts % (Manual) Lymphocytes % (Manual) Monocytes % (Manual) Nucleated RBC % Seg Neutrophils # Seg Neutrophils # Man Lymphocytes # (Manual) Monocytes # (Manual) PT INR D-Dimer ABG pH 7.037 L 7.095 L POC ABG pCO2 92.4 H 68.0 H POC ABG pO2 130.8 H 43.5 L ABG pO2 ABG HCO3 ABG Base Excess ABG Hemoglobin 11.3 L 10.6 L ABG Oxyhemoglobin 70.8 L ABG Sodium ABG Potassium 7.0 H ABG Chloride 108.0 H ABG Glucose Carboxyhemoglobin 0.3 L Sodium Potassium 8.4 H* D Chloride Carbon Dioxide 17 L D BUN 38 H Creatinine 3.9 H D Glucose POC Glucose Lactic Acid Calcium 7.7 L D Phosphorus Ferritin Total Bilirubin Direct Bilirubin AST ALT Lactate Dehydrogenase Total Creatine Kinase Troponin T Total Protein Albumin Triglycerides Arterial Blood Glucose Arterial Blood Ionized Calcium 4.5 L Urine pH Urine Creatinine Salicylates Acetaminophen Coronavirus (PCR) 09/08/20 09/08/20 09/08/20 05:00 05:25 12:02 WBC RBC Hgb Hct MCHC RDW Lymph % (Auto) [place] % (Auto) Lymph # (Auto) [place] # (Auto) Seg Neutrophils % Seg Neuts % (Manual) Lymphocytes % (Manual) Monocytes % (Manual) Nucleated RBC % Seg Neutrophils # Seg Neutrophils # Man Lymphocytes # (Manual) Monocytes # (Manual) PT INR D-Dimer ABG pH 7.088 L POC ABG pCO2 69.1 H POC ABG pO2 35.2 L ABG pO2 ABG HCO3 ABG Base Excess ABG Hemoglobin 10.9 L ABG Oxyhemoglobin 57.1 L ABG Sodium ABG Potassium 7.0 H ABG Chloride 108.0 H ABG Glucose Carboxyhemoglobin 0.4 L Sodium Potassium 8.1 H* Chloride Carbon Dioxide 17 L BUN 38 H Creatinine 3.7 H Glucose POC Glucose Lactic Acid Calcium 8.0 L Phosphorus 8.00 H Ferritin Total Bilirubin Direct Bilirubin 0.5 H AST 3696 H ALT 3331 H Lactate Dehydrogenase Total Creatine Kinase Troponin T Total Protein Albumin 3.5 L Triglycerides Arterial Blood Glucose Arterial Blood Ionized Calcium 4.4 L Urine pH Urine Creatinine Salicylates Acetaminophen Coronavirus (PCR) 09/08/20 09/08/20 09/08/20 16:31 22:36 Unknown WBC RBC Hgb Hct MCHC RDW Lymph % (Auto) [place] % (Auto) Lymph # (Auto) [place] # (Auto) Seg Neutrophils % Seg Neuts % (Manual) Lymphocytes % (Manual) Monocytes % (Manual) Nucleated RBC % Seg Neutrophils # Seg Neutrophils # Man Lymphocytes # (Manual) Monocytes # (Manual) PT INR D-Dimer ABG pH POC ABG pCO2 POC ABG pO2 ABG pO2 ABG HCO3 ABG Base Excess ABG Hemoglobin ABG Oxyhemoglobin ABG Sodium ABG Potassium ABG Chloride ABG Glucose Carboxyhemoglobin Sodium Potassium 5.3 H D Chloride Carbon Dioxide BUN Creatinine Glucose POC Glucose 158 H Lactic Acid Calcium Phosphorus Ferritin Total Bilirubin Direct Bilirubin AST ALT Lactate Dehydrogenase Total Creatine Kinase Troponin T Total Protein Albumin Triglycerides Arterial Blood Glucose Arterial Blood Ionized Calcium Urine pH Urine Creatinine Salicylates Acetaminophen Coronavirus (PCR) Positive A 09/08/20 09/08/20 09/08/20 Unknown Unknown Unknown WBC 18.4 H RBC Hgb 10.1 L Hct 32.0 L MCHC RDW 18.2 H Lymph % (Auto) [place] % (Auto) Lymph # (Auto) [place] # (Auto) Seg Neutrophils % Seg Neuts % (Manual) 81.0 H Lymphocytes % (Manual) 2.0 L Monocytes % (Manual) Nucleated RBC % 1.0 H Seg Neutrophils # Seg Neutrophils # Man 14.9 H Lymphocytes # (Manual) 0.4 L Monocytes # (Manual) 1.1 H PT 21.2 H INR 1.83 H D-Dimer ABG pH POC ABG pCO2 POC ABG pO2 ABG pO2 ABG HCO3 ABG Base Excess ABG Hemoglobin ABG Oxyhemoglobin ABG Sodium ABG Potassium ABG Chloride ABG Glucose Carboxyhemoglobin Sodium Potassium Chloride Carbon Dioxide BUN Creatinine Glucose POC Glucose Lactic Acid Calcium Phosphorus Ferritin Total Bilirubin Direct Bilirubin AST ALT Lactate Dehydrogenase Total Creatine Kinase Troponin T Total Protein Albumin Triglycerides Arterial Blood Glucose Arterial Blood Ionized Calcium Urine pH Urine Creatinine 182.4 H Salicylates Acetaminophen Coronavirus (PCR) 09/09/20 09/09/20 09/09/20 03:14 04:20 04:20 WBC 16.3 H RBC 3.12 L Hgb 8.6 L Hct 26.8 L MCHC RDW 18.2 H Lymph % (Auto) 6.[address] [place] % (Auto) 8.8 H Lymph # (Auto) 1.[address] [place] # (Auto) 1.4 H Seg Neutrophils % 84.5 H Seg Neuts % (Manual) Lymphocytes % (Manual) Monocytes % (Manual) Nucleated RBC % Seg Neutrophils # 13.7 H Seg Neutrophils # Man Lymphocytes # (Manual) Monocytes # (Manual) PT INR D-Dimer ABG pH POC ABG pCO2 POC ABG pO2 148.5 H ABG pO2 ABG HCO3 ABG Base Excess ABG Hemoglobin 9.4 L ABG Oxyhemoglobin 98.8 H ABG Sodium 134.8 L ABG Potassium 5.0 H ABG Chloride ABG Glucose 222 H Carboxyhemoglobin 0.1 L Sodium Potassium 5.2 H Chloride Carbon Dioxide BUN 47 H Creatinine 4.3 H Glucose 211 H POC Glucose Lactic Acid Calcium 7.4 L Phosphorus Ferritin Total Bilirubin [place] 86804 H ALT 6206 H Lactate Dehydrogenase Total Creatine Kinase Troponin T Total Protein 5.6 L Albumin 3.0 L Triglycerides Arterial Blood Glucose 222 H Arterial Blood Ionized Calcium 3.8 L Urine pH Urine Creatinine Salicylates Acetaminophen Coronavirus (PCR) 09/09/20 09/09/20 09/09/20 10:00 12:23 18:22 WBC RBC Hgb Hct MCHC RDW Lymph % (Auto) [place] % (Auto) Lymph # (Auto) [place] # (Auto) Seg Neutrophils % Seg Neuts % (Manual) Lymphocytes % (Manual) Monocytes % (Manual) Nucleated RBC % Seg Neutrophils # Seg Neutrophils # Man Lymphocytes # (Manual) Monocytes # (Manual) PT 21.7 H INR 1.90 H D-Dimer ABG pH POC ABG pCO2 POC ABG pO2 ABG pO2 ABG HCO3 ABG Base Excess ABG Hemoglobin ABG Oxyhemoglobin ABG Sodium ABG Potassium ABG Chloride ABG Glucose Carboxyhemoglobin Sodium Potassium Chloride Carbon Dioxide BUN Creatinine Glucose POC Glucose 216 H 211 H Lactic Acid Calcium Phosphorus Ferritin Total Bilirubin Direct Bilirubin AST ALT Lactate Dehydrogenase Total Creatine Kinase Troponin T Total Protein Albumin Triglycerides Arterial Blood Glucose Arterial Blood Ionized Calcium Urine pH Urine Creatinine Salicylates Acetaminophen Coronavirus (PCR) 09/10/20 09/10/20 09/10/20 04:00 04:05 04:05 WBC 15.0 H RBC 3.06 L Hgb 8.6 L Hct 25.8 L MCHC RDW 18.0 H Lymph % (Auto) [place] % (Auto) Lymph # (Auto) [place] # (Auto) Seg Neutrophils % Seg Neuts % (Manual) 86.0 H Lymphocytes % (Manual) 6.0 L Monocytes % (Manual) 8.0 H Nucleated RBC % Seg Neutrophils # Seg Neutrophils # Man 12.9 H Lymphocytes # (Manual) 0.9 L Monocytes # (Manual) 1.2 H PT 18.4 H INR 1.54 H D-Dimer ABG pH POC ABG pCO2 POC ABG pO2 ABG pO2 ABG HCO3 ABG Base Excess ABG Hemoglobin ABG Oxyhemoglobin ABG Sodium ABG Potassium ABG Chloride ABG Glucose Carboxyhemoglobin Sodium 134 L Potassium Chloride 93.7 L Carbon Dioxide BUN 46 H Creatinine 3.6 H Glucose 275 H POC Glucose Lactic Acid Calcium 7.7 L Phosphorus Ferritin Total Bilirubin 1.30 H Direct Bilirubin AST 5899 H ALT 6440 H Lactate Dehydrogenase Total Creatine Kinase Troponin T Total Protein 5.9 L Albumin 3.3 L Triglycerides Arterial Blood Glucose Arterial Blood Ionized Calcium Urine pH Urine Creatinine Salicylates Acetaminophen Coronavirus (PCR) 09/10/20 09/10/20 09/10/20 04:35 12:06 17:42 WBC RBC Hgb Hct MCHC RDW Lymph % (Auto) [place] % (Auto) Lymph # (Auto) [place] # (Auto) Seg Neutrophils % Seg Neuts % (Manual) Lymphocytes % (Manual) Monocytes % (Manual) Nucleated RBC % Seg Neutrophils # Seg Neutrophils # Man Lymphocytes # (Manual) Monocytes # (Manual) PT INR D-Dimer ABG pH 7.464 H POC ABG pCO2 POC ABG pO2 ABG pO2 ABG HCO3 ABG Base Excess ABG Hemoglobin 9.9 L ABG Oxyhemoglobin ABG Sodium 131.6 L ABG Potassium ABG Chloride 97.0 L ABG Glucose 281 H Carboxyhemoglobin 0.1 L Sodium Potassium Chloride Carbon Dioxide BUN Creatinine Glucose POC Glucose 298 H 340 H Lactic Acid Calcium Phosphorus Ferritin Total Bilirubin Direct Bilirubin AST ALT Lactate Dehydrogenase Total Creatine Kinase Troponin T Total Protein Albumin Triglycerides Arterial Blood Glucose 281 H Arterial Blood Ionized Calcium 3.9 L Urine pH Urine Creatinine Salicylates Acetaminophen Coronavirus (PCR) 09/10/20 09/11/20 09/11/20 23:07 04:44 05:17 WBC RBC Hgb Hct MCHC RDW Lymph % (Auto) [place] % (Auto) Lymph # (Auto) [place] # (Auto) Seg Neutrophils % Seg Neuts % (Manual) Lymphocytes % (Manual) Monocytes % (Manual) Nucleated RBC % Seg Neutrophils # Seg Neutrophils # Man Lymphocytes # (Manual) Monocytes # (Manual) PT 16.9 H INR 1.39 H D-Dimer ABG pH POC ABG pCO2 POC ABG pO2 ABG pO2 ABG HCO3 ABG Base Excess ABG Hemoglobin ABG Oxyhemoglobin ABG Sodium ABG Potassium ABG Chloride ABG Glucose Carboxyhemoglobin Sodium Potassium Chloride Carbon Dioxide BUN Creatinine Glucose POC Glucose 367 H 416 H Lactic Acid Calcium Phosphorus Ferritin Total Bilirubin Direct Bilirubin AST ALT Lactate Dehydrogenase Total Creatine Kinase Troponin T Total Protein Albumin Triglycerides Arterial Blood Glucose Arterial Blood Ionized Calcium Urine pH Urine Creatinine Salicylates Acetaminophen Coronavirus (PCR) 09/11/20 09/11/20 09/11/20 05:40 12:01 17:50 WBC RBC Hgb Hct MCHC RDW Lymph % (Auto) [place] % (Auto) Lymph # (Auto) [place] # (Auto) Seg Neutrophils % Seg Neuts % (Manual) Lymphocytes % (Manual) Monocytes % (Manual) Nucleated RBC % Seg Neutrophils # Seg Neutrophils # Man Lymphocytes # (Manual) Monocytes # (Manual) PT INR D-Dimer ABG pH 7.543 H POC ABG pCO2 POC ABG pO2 ABG pO2 112.1 H ABG HCO3 28.1 H ABG Base Excess 5.4 H ABG Hemoglobin 8.4 L ABG Oxyhemoglobin ABG Sodium ABG Potassium ABG Chloride ABG Glucose Carboxyhemoglobin Sodium Potassium Chloride Carbon Dioxide BUN Creatinine Glucose POC Glucose 418 H 404 H Lactic Acid Calcium Phosphorus Ferritin Total Bilirubin Direct Bilirubin AST ALT Lactate Dehydrogenase Total Creatine Kinase Troponin T Total Protein Albumin Triglycerides Arterial Blood Glucose Arterial Blood Ionized Calcium Urine pH Urine Creatinine Salicylates Acetaminophen Coronavirus (PCR) 09/11/20 09/11/20 09/12/20 23:10 23:43 03:15 WBC RBC Hgb Hct MCHC RDW Lymph % (Auto) [place] % (Auto) Lymph # (Auto) [place] # (Auto) Seg Neutrophils % Seg Neuts % (Manual) Lymphocytes % (Manual) Monocytes % (Manual) Nucleated RBC % Seg Neutrophils # Seg Neutrophils # Man Lymphocytes # (Manual) Monocytes # (Manual) PT INR D-Dimer ABG pH POC ABG pCO2 POC ABG pO2 ABG pO2 ABG HCO3 ABG Base Excess ABG Hemoglobin ABG Oxyhemoglobin ABG Sodium ABG Potassium ABG Chloride ABG Glucose Carboxyhemoglobin Sodium 135 L Potassium Chloride 92.3 L Carbon Dioxide BUN 62 H Creatinine 3.7 H Glucose 406 H POC Glucose 372 H 359 H Lactic Acid Calcium Phosphorus Ferritin Total Bilirubin Direct Bilirubin AST 687 H ALT 3701 H Lactate Dehydrogenase Total Creatine Kinase Troponin T Total Protein 5.8 L Albumin 3.1 L Triglycerides Arterial Blood Glucose Arterial Blood Ionized Calcium Urine pH Urine Creatinine Salicylates Acetaminophen Coronavirus (PCR) 09/12/20 09/12/20 09/12/20 03:18 04:00 04:00 WBC 13.7 H RBC 3.30 L Hgb 9.3 L Hct 27.6 L MCHC RDW 17.5 H Lymph % (Auto) [place] % (Auto) Lymph # (Auto) [place] # (Auto) Seg Neutrophils % Seg Neuts % (Manual) 76.0 H Lymphocytes % (Manual) 11.0 L Monocytes % (Manual) 13.0 H Nucleated RBC % Seg Neutrophils # Seg Neutrophils # Man 10.4 H Lymphocytes # (Manual) Monocytes # (Manual) 1.8 H PT 16.1 H INR 1.31 H D-Dimer ABG pH 7.558 H POC ABG pCO2 POC ABG pO2 74.7 L ABG pO2 ABG HCO3 ABG Base Excess ABG Hemoglobin 9.7 L ABG Oxyhemoglobin ABG Sodium 132.4 L ABG Potassium ABG Chloride 95.0 L ABG Glucose 437 H Carboxyhemoglobin Sodium Potassium Chloride Carbon Dioxide BUN Creatinine Glucose POC Glucose Lactic Acid Calcium Phosphorus Ferritin Total Bilirubin Direct Bilirubin AST ALT Lactate Dehydrogenase Total Creatine Kinase Troponin T Total Protein Albumin Triglycerides Arterial Blood Glucose 437 H Arterial Blood Ionized Calcium 4.3 L Urine pH Urine Creatinine Salicylates Acetaminophen Coronavirus (PCR) 0209/12/20 09/12/20 04:21 05:20 06:37 WBC RBC Hgb Hct MCHC RDW Lymph % (Auto) [place] % (Auto) Lymph # (Auto) [place] # (Auto) Seg Neutrophils % Seg Neuts % (Manual) Lymphocytes % (Manual) Monocytes % (Manual) Nucleated RBC % Seg Neutrophils # Seg Neutrophils # Man Lymphocytes # (Manual) Monocytes # (Manual) PT INR D-Dimer ABG pH POC ABG pCO2 POC ABG pO2 ABG pO2 ABG HCO3 ABG Base Excess ABG Hemoglobin ABG Oxyhemoglobin ABG Sodium ABG Potassium ABG Chloride ABG Glucose Carboxyhemoglobin Sodium Potassium Chloride Carbon Dioxide BUN Creatinine Glucose POC Glucose 417 H 397 H 370 H Lactic Acid Calcium Phosphorus Ferritin Total Bilirubin Direct Bilirubin AST ALT Lactate Dehydrogenase Total Creatine Kinase Troponin T Total Protein Albumin Triglycerides Arterial Blood Glucose Arterial Blood Ionized Calcium Urine pH Urine Creatinine Salicylates Acetaminophen Coronavirus (PCR) 09/12/20 09/12/20 09/12/20 11:56 17:14 21:52 WBC RBC Hgb Hct MCHC RDW Lymph % (Auto) [place] % (Auto) Lymph # (Auto) [place] # (Auto) Seg Neutrophils % Seg Neuts % (Manual) Lymphocytes % (Manual) Monocytes % (Manual) Nucleated RBC % Seg Neutrophils # Seg Neutrophils # Man Lymphocytes # (Manual) Monocytes # (Manual) PT INR D-Dimer ABG pH POC ABG pCO2 POC ABG pO2 ABG pO2 ABG HCO3 ABG Base Excess ABG Hemoglobin ABG Oxyhemoglobin ABG Sodium ABG Potassium ABG Chloride ABG Glucose Carboxyhemoglobin Sodium Potassium Chloride Carbon Dioxide BUN Creatinine Glucose POC Glucose 341 H 325 H 285 H Lactic Acid Calcium Phosphorus Ferritin Total Bilirubin Direct Bilirubin AST ALT Lactate Dehydrogenase Total Creatine Kinase Troponin T Total Protein Albumin Triglycerides Arterial Blood Glucose Arterial Blood Ionized Calcium Urine pH Urine Creatinine Salicylates Acetaminophen Coronavirus (PCR) 09/12/20 09/12/20 09/12/20 23:39 Unknown Unknown WBC RBC Hgb Hct MCHC RDW Lymph % (Auto) [place] % (Auto) Lymph # (Auto) [place] # (Auto) Seg Neutrophils % Seg Neuts % (Manual) Lymphocytes % (Manual) Monocytes % (Manual) Nucleated RBC % Seg Neutrophils # Seg Neutrophils # Man Lymphocytes # (Manual) Monocytes # (Manual) PT INR D-Dimer ABG pH POC ABG pCO2 POC ABG pO2 ABG pO2 ABG HCO3 ABG Base Excess ABG Hemoglobin ABG Oxyhemoglobin ABG Sodium ABG Potassium ABG Chloride ABG Glucose Carboxyhemoglobin Sodium 135 L Potassium Chloride 92.2 L Carbon Dioxide BUN 65 H Creatinine 3.5 H Glucose 418 H POC Glucose 338 H Lactic Acid Calcium Phosphorus Ferritin Total Bilirubin Direct Bilirubin AST 553 H ALT 3453 H Lactate Dehydrogenase Total Creatine Kinase Troponin T Total Protein 5.9 L Albumin 3.0 L Triglycerides 220 H Arterial Blood Glucose Arterial Blood Ionized Calcium Urine pH Urine Creatinine Salicylates Acetaminophen Coronavirus (PCR) 09/13/20 09/13/20 09/13/20 04:47 05:24 10:50 WBC RBC Hgb Hct MCHC RDW Lymph % (Auto) [place] % (Auto) Lymph # (Auto) [place] # (Auto) Seg Neutrophils % Seg Neuts % (Manual) Lymphocytes % (Manual) Monocytes % (Manual) Nucleated RBC % Seg Neutrophils # Seg Neutrophils # Man Lymphocytes # (Manual) Monocytes # (Manual) PT INR D-Dimer ABG pH 7.571 H POC ABG pCO2 POC ABG pO2 69.0 L ABG pO2 ABG HCO3 ABG Base Excess ABG Hemoglobin 10.1 L ABG Oxyhemoglobin 93.2 L ABG Sodium 134.0 L ABG Potassium ABG Chloride ABG Glucose 365 H Carboxyhemoglobin 0.4 L Sodium Potassium Chloride 96.6 L Carbon Dioxide 32 H BUN 76 H Creatinine 3.1 H Glucose 395 H POC Glucose 329 H Lactic Acid Calcium Phosphorus Ferritin Total Bilirubin Direct Bilirubin AST ALT Lactate Dehydrogenase Total Creatine Kinase Troponin T Total Protein Albumin Triglycerides Arterial Blood Glucose 365 H Arterial Blood Ionized Calcium Urine pH Urine Creatinine Salicylates Acetaminophen Coronavirus (PCR) 09/13/20 09/13/20 09/13/20 11:39 17:48 23:35 WBC RBC Hgb Hct MCHC RDW Lymph % (Auto) [place] % (Auto) Lymph # (Auto) [place] # (Auto) Seg Neutrophils % Seg Neuts % (Manual) Lymphocytes % (Manual) Monocytes % (Manual) Nucleated RBC % Seg Neutrophils # Seg Neutrophils # Man Lymphocytes # (Manual) Monocytes # (Manual) PT INR D-Dimer ABG pH POC ABG pCO2 POC ABG pO2 ABG pO2 ABG HCO3 ABG Base Excess ABG Hemoglobin ABG Oxyhemoglobin ABG Sodium ABG Potassium ABG Chloride ABG Glucose Carboxyhemoglobin Sodium Potassium Chloride Carbon Dioxide BUN Creatinine Glucose POC Glucose 344 H 286 H 223 H Lactic Acid Calcium Phosphorus Ferritin Total Bilirubin Direct Bilirubin AST ALT Lactate Dehydrogenase Total Creatine Kinase Troponin T Total Protein Albumin Triglycerides Arterial Blood Glucose Arterial Blood Ionized Calcium Urine pH Urine Creatinine Salicylates Acetaminophen Coronavirus (PCR) 09/14/20 09/14/20 09/14/20 03:54 05:34 10:27 WBC RBC Hgb Hct MCHC RDW Lymph % (Auto) [place] % (Auto) Lymph # (Auto) [place] # (Auto) Seg Neutrophils % Seg Neuts % (Manual) Lymphocytes % (Manual) Monocytes % (Manual) Nucleated RBC % Seg Neutrophils # Seg Neutrophils # Man Lymphocytes # (Manual) Monocytes # (Manual) PT INR D-Dimer ABG pH POC ABG pCO2 POC ABG pO2 71.1 L ABG pO2 ABG HCO3 ABG Base Excess ABG Hemoglobin 10.3 L ABG Oxyhemoglobin ABG Sodium 135.2 L ABG Potassium ABG Chloride ABG Glucose 281 H Carboxyhemoglobin Sodium Potassium Chloride 96.6 L Carbon Dioxide BUN 100 H Creatinine 3.9 H Glucose 286 H POC Glucose 252 H Lactic Acid Calcium Phosphorus Ferritin Total Bilirubin Direct Bilirubin AST 145 H ALT 1400 H Lactate Dehydrogenase Total Creatine Kinase Troponin T Total Protein 5.6 L Albumin 2.9 L Triglycerides Arterial Blood Glucose 281 H Arterial Blood Ionized Calcium Urine pH Urine Creatinine Salicylates Acetaminophen Coronavirus (PCR) 09/14/20 09/14/20 11:38 17:52 WBC RBC Hgb Hct MCHC RDW Lymph % (Auto) [place] % (Auto) Lymph # (Auto) [place] # (Auto) Seg Neutrophils % Seg Neuts % (Manual) Lymphocytes % (Manual) Monocytes % (Manual) Nucleated RBC % Seg Neutrophils # Seg Neutrophils # Man Lymphocytes # (Manual) Monocytes # (Manual) PT INR D-Dimer ABG pH POC ABG pCO2 POC ABG pO2 ABG pO2 ABG HCO3 ABG Base Excess ABG Hemoglobin ABG Oxyhemoglobin ABG Sodium ABG Potassium ABG Chloride ABG Glucose Carboxyhemoglobin Sodium Potassium Chloride Carbon Dioxide BUN Creatinine Glucose POC Glucose 247 H 247 H Lactic Acid Calcium Phosphorus Ferritin Total Bilirubin Direct Bilirubin AST ALT Lactate Dehydrogenase Total Creatine Kinase Troponin T Total Protein Albumin Triglycerides Arterial Blood Glucose Arterial Blood Ionized Calcium Urine pH Urine Creatinine Salicylates Acetaminophen Coronavirus (PCR) Assessment and Plan Landon Graff is a 65 y/o Male w/ anoxic brain injury -please obtain MRI brain without contrast for formal prognostic evaluation -patient's prognosis is poor with consideration of his neurologic exam and lack of improvement over the past week -will cont to follow -please notify if questions
[2020-09-14] MEDS: VALPROATE SODIUM 1,000 MG in SODIUM CHLORIDE 0.9% 100 ML IV SCH (21:49)
[2020-09-14] MEDS: INSULIN GLARGINE 100 UNITS/ML SUB-Q SCH (22:02)
[2020-09-15] MEDS: INSULIN LISPRO 100 UNIT/ML SUB-Q SCH ×3 (05:48→18:05)
[2020-09-15] MEDS: MULTIVITAMINS 5 ML ORAL LIQUID PO SCH (10:10)
[2020-09-15] MEDS: VALPROATE SODIUM 1,000 MG in SODIUM CHLORIDE 0.9% 100 ML IV SCH ×2 (10:10→21:22)
[2020-09-15] MEDS: levETIRAcetam 1,500 MG in DEXTROSE 5% IN WATER 100 ML IV SCH ×2 (10:10→21:22)
[2020-09-15] MEDS: SENNOSIDES/DOCUSATE SODIUM 8.6/50 MG TAB PO SCH ×2 (10:10→21:22)
[2020-09-15] MEDS: LANSOPRAZOLE 30 MG SOLUTAB FEEDTUBE SCH ×2 (10:10→21:22)
[2020-09-15] MEDS: INSULIN GLARGINE 100 UNITS/ML SUB-Q SCH ×2 (10:11→21:45)
--- NOTE | 2020-09-15 10:18 | Progress Note ---
Assessment and Plan 65 y/o male with out of hospital cardiac arrest now sedated on ativan for possible seizures. 09/15/20: Order MRI brain without contrast. Per surgery this will help to add more in regards to prognosis. Continue Valproic Acid and Keppra for seizure therapy. HD going now per renal. Overall prognosis remains guarded to poor. Please reach out to over the weekend to update her as I am not rounding this weekend, ,my partner will be covering. 09/14/20: Will load with valproic acid and then start to wean Diprovan. Spoke with today, very tearful on the phone. Explained to that Neurosurgery would come and gustabo walker but not a candidate for the other therapies she asked about since his edema is related to anoxic injury. Very very poor prognosis. 09/13/20: Per current neuro available, the neurologist from yesterday will call today. EEG is nonspecific but given CT of head findings consistent with anoxic encephalopathy, brain injury. As stated in neuro note, overall prognosis is very poor. Will continue to wean down diprovan to see if patient's seizures have been controlled with current Keppra dosing. Will call once she has spoken to neuro to get her thoughts on the next steps. (trach and peg, vs hospice as well as code status). Very very poor prognosis. 09/12/20: Long discussion with this am. Given recent head CT results, prognosis for full functional recovery is very POOR and neurology agrees. They will see in consult today. I have spoken to about AND and she is going to discuss with the family. The neurologist has stated they will reach out to the today. I am going to attempt to wean the ativan off and then start to wean the diprovan as long as no seizure activity is seen. Patient is now bradycardic, likely secondary to neuro state. I hope that he is not about to herniate. Patient is also like in Neurogenic DI given large urine out put volume. Very very poor prognosis. Continue supportive measures. 09/11/20: Will increase Keppra to 1500 BID given patient size. Continue Diprovan drip. Getting EEG today. HD per renal. Needs neurology consult however if patient is in status, needs to be transferred to an institution that can provide continuous EEG monitoring. Overll prognosis is very guarded to poor. Have not spoken to yet today. 09/10/20: Loaded with keppra and will start on Keppra BID. Needs EEG on therapy as well as OFF. If patient is in status, needs transfer to a location with continuous EEG capabilities. FiO2 has been weaned back down and is now at 60%, sats in the high 90's. HD per renal. Coags improving. Overall prognosis is guarded to poor. Spoke with on phone yesterday. Consult neurology tomorrow as not available on the weekend. Suggest checking for antibodies as he may be a candidate for convalsescent plasma. Per the , he was diagnosed with COVID on and spent 6 days inpatient at the [facility]. Remains positive now with multisystem organ failure. Explained to that outcome may not be good but need more time to assess. 09/09/20: EEG ordered on yesterday but not done. If done not read. Continue diprovan for now until EEG can be done or interpreted. State Coags but given his oozing from his vascath, will give Vitamin K and FFP. Patient is covid positive so agree with steroids. Not a candidate for remdesivir. Need to check for antibodies, may be a candidate for convalescent plasma. HD per renal. Given improvement in pH will stop bicarb drip. Feed patient. 1. Stop sedation 2. EEG 3. Needs neuro consult. 4. Art line placement 5. Stat repeat of labs, if renal function is truly that bad, will need renal consult. 6. Follow up COVID testing 7. Likely needs echo 8. Will place on bicarb drip. CCT 31 minutes. Subjective Date of service: 09/15/20 Principal diagnosis: Abnormal LFTs, s/p cardiac arrest, acute kidney injury with ATN Interval history: Neurosurgery saw last night. Appreciate input. Not a candidate for bur holes or mannitol presumptively based on their evaluation. Off all sedation now, and remains unresponsive, but no seizure activity. Objective Vital Signs - 12hr 09/14/20 09/14/20 09/14/20 22:21 22:31 22:41 Temperature Pulse Rate 75 74 73 Pulse Rate [ Apical] Pulse Rate [ From Monitor] Respiratory 30 H 30 H 30 H Rate Blood Pressure 150/61 151/64 151/64 O2 Sat by Pulse 97 95 98 Oximetry O2 Sat by Pulse Oximetry [ Bilateral Throughout] 09/14/20 09/14/20 09/14/20 22:51 23:01 23:10 Temperature Pulse Rate 74 74 73 Pulse Rate [ Apical] Pulse Rate [ From Monitor] Respiratory 28 H 27 H Rate Blood Pressure 144/60 151/60 151/60 O2 Sat by Pulse 98 96 97 Oximetry O2 Sat by Pulse Oximetry [ Bilateral Throughout] 09/14/20 09/14/20 09/14/20 23:11 23:21 23:31 Temperature Pulse Rate 73 71 71 Pulse Rate [ Apical] Pulse Rate [ From Monitor] Respiratory 28 H 31 H 30 H Rate Blood Pressure 151/60 138/59 141/58 O2 Sat by Pulse 97 97 95 Oximetry O2 Sat by Pulse Oximetry [ Bilateral Throughout] 09/14/20 09/14/20 09/14/20 23:33 23:41 23:51 Temperature 101.3 F H Pulse Rate 70 70 Pulse Rate [ Apical] Pulse Rate [ From Monitor] Respiratory 30 H 31 H Rate Blood Pressure 141/58 139/59 O2 Sat by Pulse 98 98 Oximetry O2 Sat by Pulse Oximetry [ Bilateral Throughout] 09/15/20 09/15/20 09/15/20 00:00 00:01 00:11 Temperature Pulse Rate 71 70 69 Pulse Rate [ 71 Apical] Pulse Rate [ From Monitor] Respiratory 31 H 28 H 31 H Rate Blood Pressure 149/56 149/56 O2 Sat by Pulse 98 95 97 Oximetry O2 Sat by Pulse Oximetry [ Bilateral Throughout] 09/15/20 09/15/20 09/15/20 00:21 00:31 00:41 Temperature Pulse Rate 74 71 69 Pulse Rate [ Apical] Pulse Rate [ From Monitor] Respiratory 30 H 30 H 31 H Rate Blood Pressure 153/59 146/58 146/58 O2 Sat by Pulse 97 95 98 Oximetry O2 Sat by Pulse Oximetry [ Bilateral Throughout] 09/15/20 09/15/20 09/15/20 00:51 01:01 01:11 Temperature Pulse Rate 71 73 70 Pulse Rate [ Apical] Pulse Rate [ From Monitor] Respiratory 30 H 28 H 28 H Rate Blood Pressure 149/58 143/55 143/55 O2 Sat by Pulse 98 96 97 Oximetry O2 Sat by Pulse Oximetry [ Bilateral Throughout] 09/15/20 09/15/20 09/15/20 01:21 01:31 01:41 Temperature Pulse Rate 70 69 69 Pulse Rate [ Apical] Pulse Rate [ From Monitor] Respiratory 30 H 31 H 32 H Rate Blood Pressure 141/55 141/59 141/59 O2 Sat by Pulse 98 96 98 Oximetry O2 Sat by Pulse Oximetry [ Bilateral Throughout] 09/15/20 09/15/20 09/15/20 01:51 02:01 02:11 Temperature Pulse Rate 71 70 68 Pulse Rate [ Apical] Pulse Rate [ From Monitor] Respiratory 31 H 28 H 28 H Rate Blood Pressure 139/56 146/59 146/59 O2 Sat by Pulse 98 95 97 Oximetry O2 Sat by Pulse Oximetry [ Bilateral Throughout] 09/15/20 09/15/20 09/15/20 02:21 02:31 02:41 Temperature Pulse Rate 69 70 69 Pulse Rate [ Apical] Pulse Rate [ From Monitor] Respiratory 28 H 28 H 30 H Rate Blood Pressure 146/58 142/57 142/57 O2 Sat by Pulse 98 95 98 Oximetry O2 Sat by Pulse Oximetry [ Bilateral Throughout] 09/15/20 09/15/20 09/15/20 02:51 03:01 03:11 Temperature Pulse Rate 70 70 70 Pulse Rate [ Apical] Pulse Rate [ From Monitor] Respiratory 28 H 30 H 28 H Rate Blood Pressure 158/58 136/60 136/60 O2 Sat by Pulse 98 95 98 Oximetry O2 Sat by Pulse Oximetry [ Bilateral Throughout] 09/15/20 09/15/20 09/15/20 03:13 03:21 03:31 Temperature 100 F H Pulse Rate 70 70 Pulse Rate [ Apical] Pulse Rate [ From Monitor] Respiratory 30 H 28 H Rate Blood Pressure 147/58 149/58 O2 Sat by Pulse 98 95 Oximetry O2 Sat by Pulse Oximetry [ Bilateral Throughout] 09/15/20 09/15/20 09/15/20 03:35 03:41 03:51 Temperature Pulse Rate 70 69 72 Pulse Rate [ Apical] Pulse Rate [ From Monitor] Respiratory 30 H 33 H Rate Blood Pressure 149/58 149/58 155/60 O2 Sat by Pulse 98 98 97 Oximetry O2 Sat by Pulse Oximetry [ Bilateral Throughout] 09/15/20 09/15/20 09/15/20 04:00 04:11 04:21 Temperature Pulse Rate 71 71 71 Pulse Rate [ 70 Apical] Pulse Rate [ From Monitor] Respiratory 28 H 28 H 30 H Rate Blood Pressure 155/60 148/60 150/59 O2 Sat by Pulse 96 98 98 Oximetry O2 Sat by Pulse Oximetry [ Bilateral Throughout] 09/15/20 09/15/20 09/15/20 04:31 04:41 04:51 Temperature Pulse Rate 69 70 69 Pulse Rate [ Apical] Pulse Rate [ From Monitor] Respiratory 28 H 30 H 31 H Rate Blood Pressure 136/56 136/56 150/62 O2 Sat by Pulse 96 98 98 Oximetry O2 Sat by Pulse Oximetry [ Bilateral Throughout] 09/15/20 09/15/20 09/15/20 05:01 05:11 05:21 Temperature Pulse Rate 69 72 75 Pulse Rate [ Apical] Pulse Rate [ From Monitor] Respiratory 28 H 30 H 21 Rate Blood Pressure 139/55 139/55 171/79 O2 Sat by Pulse 96 98 97 Oximetry O2 Sat by Pulse Oximetry [ Bilateral Throughout] 09/15/20 09/15/20 09/15/20 05:31 05:41 05:51 Temperature Pulse Rate 87 73 70 Pulse Rate [ Apical] Pulse Rate [ From Monitor] Respiratory 20 15 Rate Blood Pressure 152/66 152/66 146/67 O2 Sat by Pulse 96 99 99 Oximetry O2 Sat by Pulse Oximetry [ Bilateral Throughout] 09/15/20 09/15/20 09/15/20 06:00 06:11 06:21 Temperature Pulse Rate 71 72 69 Pulse Rate [ Apical] Pulse Rate [ From Monitor] Respiratory 20 15 15 Rate Blood Pressure 141/61 141/61 138/61 O2 Sat by Pulse 97 100 99 Oximetry O2 Sat by Pulse Oximetry [ Bilateral Throughout] 09/15/20 09/15/20 09/15/20 06:31 06:41 06:51 Temperature Pulse Rate 67 67 66 Pulse Rate [ Apical] Pulse Rate [ From Monitor] Respiratory 14 20 26 H Rate Blood Pressure 140/58 140/58 139/62 O2 Sat by Pulse 97 100 99 Oximetry O2 Sat by Pulse Oximetry [ Bilateral Throughout] 09/15/20 09/15/20 09/15/20 07:00 07:11 07:21 Temperature Pulse Rate 66 65 66 Pulse Rate [ Apical] Pulse Rate [ From Monitor] Respiratory 14 24 17 Rate Blood Pressure 141/62 141/62 140/61 O2 Sat by Pulse 99 99 99 Oximetry O2 Sat by Pulse Oximetry [ Bilateral Throughout] 09/15/20 09/15/20 09/15/20 07:30 07:31 07:41 Temperature Pulse Rate 67 67 67 Pulse Rate [ Apical] Pulse Rate [ From Monitor] Respiratory 16 24 Rate Blood Pressure 150/67 150/67 O2 Sat by Pulse 98 100 Oximetry O2 Sat by Pulse Oximetry [ Bilateral Throughout] 09/15/20 09/15/20 09/15/20 07:51 08:00 08:01 Temperature 99.8 F H Pulse Rate 67 66 Pulse Rate [ Apical] Pulse Rate [ 66 From Monitor] Respiratory 20 21 18 Rate Blood Pressure 147/61 141/61 O2 Sat by Pulse 99 100 98 Oximetry O2 Sat by Pulse Oximetry [ Bilateral Throughout] 09/15/20 09/15/20 09/15/20 08:11 08:15 08:19 Temperature Pulse Rate 67 65 66 Pulse Rate [ Apical] Pulse Rate [ From Monitor] Respiratory 22 Rate Blood Pressure 141/61 141/81 143/60 O2 Sat by Pulse 99 99 Oximetry O2 Sat by Pulse Oximetry [ Bilateral Throughout] 09/15/20 09/15/20 09/15/20 08:21 08:30 08:31 Temperature Pulse Rate 66 64 67 Pulse Rate [ Apical] Pulse Rate [ From Monitor] Respiratory 19 19 Rate Blood Pressure 143/60 151/68 151/65 O2 Sat by Pulse 99 98 Oximetry O2 Sat by Pulse Oximetry [ Bilateral Throughout] 09/15/20 09/15/20 09/15/20 08:41 08:43 08:45 Temperature 99.8 F H Pulse Rate 64 65 65 Pulse Rate [ Apical] Pulse Rate [ From Monitor] Respiratory 20 24 Rate Blood Pressure 151/65 141/61 145/65 O2 Sat by Pulse 100 Oximetry O2 Sat by Pulse 100 Oximetry [ Bilateral Throughout] 09/15/20 09/15/20 09/15/20 08:51 09:00 09:01 Temperature Pulse Rate 65 65 65 Pulse Rate [ Apical] Pulse Rate [ From Monitor] Respiratory 17 13 Rate Blood Pressure 143/65 149/65 149/65 O2 Sat by Pulse 100 99 Oximetry O2 Sat by Pulse Oximetry [ Bilateral Throughout] 09/15/20 09/15/20 09/15/20 09:11 09:15 09:21 Temperature Pulse Rate 65 66 65 Pulse Rate [ Apical] Pulse Rate [ From Monitor] Respiratory 21 21 Rate Blood Pressure 149/65 148/66 145/66 O2 Sat by Pulse 100 100 Oximetry O2 Sat by Pulse Oximetry [ Bilateral Throughout] 09/15/20 09/15/20 09/15/20 09:30 09:31 09:41 Temperature Pulse Rate 66 66 65 Pulse Rate [ Apical] Pulse Rate [ From Monitor] Respiratory 15 16 Rate Blood Pressure 140/66 141/66 141/66 O2 Sat by Pulse 98 100 Oximetry O2 Sat by Pulse Oximetry [ Bilateral Throughout] 09/15/20 09/15/20 09/15/20 09:45 09:51 10:00 Temperature Pulse Rate 65 65 66 Pulse Rate [ Apical] Pulse Rate [ From Monitor] Respiratory 16 18 Rate Blood Pressure 138/62 138/63 139/64 O2 Sat by Pulse 100 98 Oximetry O2 Sat by Pulse Oximetry [ Bilateral Throughout] Constitutional: comatose, other (morbidly obese) Eyes: non-icteric ENT: other (orally intubated and sedated) Neck: supple Effort: normal Ascultation: Bilateral: diminished breath sounds Percussion: Bilateral: not dull Cardiovascular: other (bradycardic) Gastrointestinal: soft CBC and BMP: 09/12/20 04:00 09/14/20 10:27 ABG, PT/INR, D-dimer: ABG ABG pH 7.442 (7.320-7.450) 09/14/20 03:54 POC ABG pCO2 42.3 mmHg (32.0-48.0) 09/14/20 03:54 ABG pCO2 33.4 mm Hg 09/11/20 05:40 POC ABG pO2 71.1 mmHg (83-108) L 09/14/20 03:54 ABG pO2 112.1 mm Hg (80.0-90.0) H 09/11/20 05:40 POC ABG HCO3 28.2 09/14/20 03:54 ABG O2 Saturation 98.4 % (95.0-99.0) 09/11/20 05:40 PT/INR, D-dimer PT 16.1 Sec. (12.2-14.9) H 09/12/20 04:00 INR 1.31 (0.87-1.13) H 09/12/20 04:00 D-Dimer 8315.85 ng/mlDDU (0-234) H 09/07/20 14:00 Abnormal lab findings: Abnormal Labs 09/07/20 09/07/20 09/07/20 13:08 14:00 14:00 WBC 15.7 H RBC Hgb 10.2 L Hct 32.5 L MCHC 31 L RDW 17.5 H Lymph % (Auto) [place] % (Auto) Lymph # (Auto) [place] # (Auto) Seg Neutrophils % Seg Neuts % (Manual) 72.0 H Lymphocytes % (Manual) Monocytes % (Manual) 8.0 H Nucleated RBC % Seg Neutrophils # Seg Neutrophils # Man 11.3 H Lymphocytes # (Manual) Monocytes # (Manual) 1.3 H PT INR D-Dimer 8315.85 H ABG pH POC ABG pCO2 POC ABG pO2 ABG pO2 ABG HCO3 ABG Base Excess ABG Hemoglobin ABG Oxyhemoglobin ABG Sodium ABG Potassium ABG Chloride ABG Glucose Carboxyhemoglobin Sodium Potassium Chloride Carbon Dioxide BUN Creatinine Glucose POC Glucose Lactic Acid Calcium Phosphorus Ferritin Total Bilirubin Direct Bilirubin AST ALT Lactate Dehydrogenase Total Creatine Kinase Troponin T Total Protein Albumin Triglycerides Arterial Blood Glucose Arterial Blood Ionized Calcium Urine pH 8.0 H Urine Creatinine Salicylates Acetaminophen Coronavirus (PCR) 09/07/20 09/07/20 09/07/20 14:00 14:00 14:00 WBC RBC Hgb Hct MCHC RDW Lymph % (Auto) [place] % (Auto) Lymph # (Auto) [place] # (Auto) Seg Neutrophils % Seg Neuts % (Manual) Lymphocytes % (Manual) Monocytes % (Manual) Nucleated RBC % Seg Neutrophils # Seg Neutrophils # Man Lymphocytes # (Manual) Monocytes # (Manual) PT INR D-Dimer ABG pH POC ABG pCO2 POC ABG pO2 ABG pO2 ABG HCO3 ABG Base Excess ABG Hemoglobin ABG Oxyhemoglobin ABG Sodium ABG Potassium ABG Chloride ABG Glucose Carboxyhemoglobin Sodium Potassium Chloride Carbon Dioxide BUN Creatinine Glucose POC Glucose Lactic Acid 4.30 H* Calcium Phosphorus Ferritin > 2000.0 H Total Bilirubin Direct Bilirubin AST ALT Lactate Dehydrogenase 882 H Total Creatine Kinase 477 H Troponin T 0.076 H Total Protein Albumin Triglycerides Arterial Blood Glucose Arterial Blood Ionized Calcium Urine pH Urine Creatinine Salicylates Acetaminophen Coronavirus (PCR) 09/07/20 09/07/20 09/07/20 14:00 14:00 14:00 WBC RBC Hgb Hct MCHC RDW Lymph % (Auto) [place] % (Auto) Lymph # (Auto) [place] # (Auto) Seg Neutrophils % Seg Neuts % (Manual) Lymphocytes % (Manual) Monocytes % (Manual) Nucleated RBC % Seg Neutrophils # Seg Neutrophils # Man Lymphocytes # (Manual) Monocytes # (Manual) PT INR D-Dimer ABG pH POC ABG pCO2 POC ABG pO2 ABG pO2 ABG HCO3 ABG Base Excess ABG Hemoglobin ABG Oxyhemoglobin ABG Sodium ABG Potassium ABG Chloride ABG Glucose Carboxyhemoglobin Sodium Potassium Chloride Carbon Dioxide BUN Creatinine 1.8 H Glucose POC Glucose Lactic Acid Calcium Phosphorus Ferritin Total Bilirubin Direct Bilirubin AST 310 H ALT 339 H Lactate Dehydrogenase Total Creatine Kinase Troponin T Total Protein Albumin 3.6 L Triglycerides Arterial Blood Glucose Arterial Blood Ionized Calcium Urine pH Urine Creatinine Salicylates < 0.3 L Acetaminophen 5.0 L Coronavirus (PCR) 09/07/20 09/08/20 09/08/20 14:26 04:00 04:17 WBC RBC Hgb Hct MCHC RDW Lymph % (Auto) [place] % (Auto) Lymph # (Auto) [place] # (Auto) Seg Neutrophils % Seg Neuts % (Manual) Lymphocytes % (Manual) Monocytes % (Manual) Nucleated RBC % Seg Neutrophils # Seg Neutrophils # Man Lymphocytes # (Manual) Monocytes # (Manual) PT INR D-Dimer ABG pH 7.037 L 7.095 L POC ABG pCO2 92.4 H 68.0 H POC ABG pO2 130.8 H 43.5 L ABG pO2 ABG HCO3 ABG Base Excess ABG Hemoglobin 11.3 L 10.6 L ABG Oxyhemoglobin 70.8 L ABG Sodium ABG Potassium 7.0 H ABG Chloride 108.0 H ABG Glucose Carboxyhemoglobin 0.3 L Sodium Potassium 8.4 H* D Chloride Carbon Dioxide 17 L D BUN 38 H Creatinine 3.9 H D Glucose POC Glucose Lactic Acid Calcium 7.7 L D Phosphorus Ferritin Total Bilirubin Direct Bilirubin AST ALT Lactate Dehydrogenase Total Creatine Kinase Troponin T Total Protein Albumin Triglycerides Arterial Blood Glucose Arterial Blood Ionized Calcium 4.5 L Urine pH Urine Creatinine Salicylates Acetaminophen Coronavirus (PCR) 09/08/20 09/08/20 09/08/20 05:00 05:25 12:02 WBC RBC Hgb Hct MCHC RDW Lymph % (Auto) [place] % (Auto) Lymph # (Auto) [place] # (Auto) Seg Neutrophils % Seg Neuts % (Manual) Lymphocytes % (Manual) Monocytes % (Manual) Nucleated RBC % Seg Neutrophils # Seg Neutrophils # Man Lymphocytes # (Manual) Monocytes # (Manual) PT INR D-Dimer ABG pH 7.088 L POC ABG pCO2 69.1 H POC ABG pO2 35.2 L ABG pO2 ABG HCO3 ABG Base Excess ABG Hemoglobin 10.9 L ABG Oxyhemoglobin 57.1 L ABG Sodium ABG Potassium 7.0 H ABG Chloride 108.0 H ABG Glucose Carboxyhemoglobin 0.4 L Sodium Potassium 8.1 H* Chloride Carbon Dioxide 17 L BUN 38 H Creatinine 3.7 H Glucose POC Glucose Lactic Acid Calcium 8.0 L Phosphorus 8.00 H Ferritin Total Bilirubin Direct Bilirubin 0.5 H AST 3696 H ALT 3331 H Lactate Dehydrogenase Total Creatine Kinase Troponin T Total Protein Albumin 3.5 L Triglycerides Arterial Blood Glucose Arterial Blood Ionized Calcium 4.4 L Urine pH Urine Creatinine Salicylates Acetaminophen Coronavirus (PCR) 09/08/20 09/08/20 09/08/20 16:31 22:36 Unknown WBC RBC Hgb Hct MCHC RDW Lymph % (Auto) [place] % (Auto) Lymph # (Auto) [place] # (Auto) Seg Neutrophils % Seg Neuts % (Manual) Lymphocytes % (Manual) Monocytes % (Manual) Nucleated RBC % Seg Neutrophils # Seg Neutrophils # Man Lymphocytes # (Manual) Monocytes # (Manual) PT INR D-Dimer ABG pH POC ABG pCO2 POC ABG pO2 ABG pO2 ABG HCO3 ABG Base Excess ABG Hemoglobin ABG Oxyhemoglobin ABG Sodium ABG Potassium ABG Chloride ABG Glucose Carboxyhemoglobin Sodium Potassium 5.3 H D Chloride Carbon Dioxide BUN Creatinine Glucose POC Glucose 158 H Lactic Acid Calcium Phosphorus Ferritin Total Bilirubin Direct Bilirubin AST ALT Lactate Dehydrogenase Total Creatine Kinase Troponin T Total Protein Albumin Triglycerides Arterial Blood Glucose Arterial Blood Ionized Calcium Urine pH Urine Creatinine Salicylates Acetaminophen Coronavirus (PCR) Positive A 09/08/20 09/08/20 09/08/20 Unknown Unknown Unknown WBC 18.4 H RBC Hgb 10.1 L Hct 32.0 L MCHC RDW 18.2 H Lymph % (Auto) [place] % (Auto) Lymph # (Auto) [place] # (Auto) Seg Neutrophils % Seg Neuts % (Manual) 81.0 H Lymphocytes % (Manual) 2.0 L Monocytes % (Manual) Nucleated RBC % 1.0 H Seg Neutrophils # Seg Neutrophils # Man 14.9 H Lymphocytes # (Manual) 0.4 L Monocytes # (Manual) 1.1 H PT 21.2 H INR 1.83 H D-Dimer ABG pH POC ABG pCO2 POC ABG pO2 ABG pO2 ABG HCO3 ABG Base Excess ABG Hemoglobin ABG Oxyhemoglobin ABG Sodium ABG Potassium ABG Chloride ABG Glucose Carboxyhemoglobin Sodium Potassium Chloride Carbon Dioxide BUN Creatinine Glucose POC Glucose Lactic Acid Calcium Phosphorus Ferritin Total Bilirubin Direct Bilirubin AST ALT Lactate Dehydrogenase Total Creatine Kinase Troponin T Total Protein Albumin Triglycerides Arterial Blood Glucose Arterial Blood Ionized Calcium Urine pH Urine Creatinine 182.4 H Salicylates Acetaminophen Coronavirus (PCR) 09/09/20 09/09/20 09/09/20 03:14 04:20 04:20 WBC 16.3 H RBC 3.12 L Hgb 8.6 L Hct 26.8 L MCHC RDW 18.2 H Lymph % (Auto) 6.3 L [place] % (Auto) 8.8 H Lymph # (Auto) 1.0 L [place] # (Auto) 1.4 H Seg Neutrophils % 84.5 H Seg Neuts % (Manual) Lymphocytes % (Manual) Monocytes % (Manual) Nucleated RBC % Seg Neutrophils # 13.7 H Seg Neutrophils # Man Lymphocytes # (Manual) Monocytes # (Manual) PT INR D-Dimer ABG pH POC ABG pCO2 POC ABG pO2 148.5 H ABG pO2 ABG HCO3 ABG Base Excess ABG Hemoglobin 9.4 L ABG Oxyhemoglobin 98.8 H ABG Sodium 134.8 L ABG Potassium 5.0 H ABG Chloride ABG Glucose 222 H Carboxyhemoglobin 0.1 L Sodium Potassium 5.2 H Chloride Carbon Dioxide BUN 47 H Creatinine 4.3 H Glucose 211 H POC Glucose Lactic Acid Calcium 7.4 L Phosphorus Ferritin Total Bilirubin [place] 51246 H ALT 6206 H Lactate Dehydrogenase Total Creatine Kinase Troponin T Total Protein 5.6 L Albumin 3.0 L Triglycerides Arterial Blood Glucose 222 H Arterial Blood Ionized Calcium 3.8 L Urine pH Urine Creatinine Salicylates Acetaminophen Coronavirus (PCR) 09/09/20 09/09/20 09/09/20 10:00 12:23 18:22 WBC RBC Hgb Hct MCHC RDW Lymph % (Auto) [place] % (Auto) Lymph # (Auto) [place] # (Auto) Seg Neutrophils % Seg Neuts % (Manual) Lymphocytes % (Manual) Monocytes % (Manual) Nucleated RBC % Seg Neutrophils # Seg Neutrophils # Man Lymphocytes # (Manual) Monocytes # (Manual) PT 21.7 H INR 1.90 H D-Dimer ABG pH POC ABG pCO2 POC ABG pO2 ABG pO2 ABG HCO3 ABG Base Excess ABG Hemoglobin ABG Oxyhemoglobin ABG Sodium ABG Potassium ABG Chloride ABG Glucose Carboxyhemoglobin Sodium Potassium Chloride Carbon Dioxide BUN Creatinine Glucose POC Glucose 216 H 211 H Lactic Acid Calcium Phosphorus Ferritin Total Bilirubin Direct Bilirubin AST ALT Lactate Dehydrogenase Total Creatine Kinase Troponin T Total Protein Albumin Triglycerides Arterial Blood Glucose Arterial Blood Ionized Calcium Urine pH Urine Creatinine Salicylates Acetaminophen Coronavirus (PCR) 09/10/20 09/10/20 09/10/20 04:00 04:05 04:05 WBC 15.0 H RBC 3.06 L Hgb 8.6 L Hct 25.8 L MCHC RDW 18.0 H Lymph % (Auto) [place] % (Auto) Lymph # (Auto) [place] # (Auto) Seg Neutrophils % Seg Neuts % (Manual) 86.0 H Lymphocytes % (Manual) 6.0 L Monocytes % (Manual) 8.0 H Nucleated RBC % Seg Neutrophils # Seg Neutrophils # Man 12.9 H Lymphocytes # (Manual) 0.9 L Monocytes # (Manual) 1.2 H PT 18.4 H INR 1.54 H D-Dimer ABG pH POC ABG pCO2 POC ABG pO2 ABG pO2 ABG HCO3 ABG Base Excess ABG Hemoglobin ABG Oxyhemoglobin ABG Sodium ABG Potassium ABG Chloride ABG Glucose Carboxyhemoglobin Sodium 134 L Potassium Chloride 93.7 L Carbon Dioxide BUN 46 H Creatinine 3.6 H Glucose 275 H POC Glucose Lactic Acid Calcium 7.7 L Phosphorus Ferritin Total Bilirubin 1.30 H Direct Bilirubin AST 5899 H ALT 6440 H Lactate Dehydrogenase Total Creatine Kinase Troponin T Total Protein 5.9 L Albumin 3.3 L Triglycerides Arterial Blood Glucose Arterial Blood Ionized Calcium Urine pH Urine Creatinine Salicylates Acetaminophen Coronavirus (PCR) 09/10/20 09/10/20 09/10/20 04:35 12:06 17:42 WBC RBC Hgb Hct MCHC RDW Lymph % (Auto) [place] % (Auto) Lymph # (Auto) [place] # (Auto) Seg Neutrophils % Seg Neuts % (Manual) Lymphocytes % (Manual) Monocytes % (Manual) Nucleated RBC % Seg Neutrophils # Seg Neutrophils # Man Lymphocytes # (Manual) Monocytes # (Manual) PT INR D-Dimer ABG pH 7.464 H POC ABG pCO2 POC ABG pO2 ABG pO2 ABG HCO3 ABG Base Excess ABG Hemoglobin 9.9 L ABG Oxyhemoglobin ABG Sodium 131.6 L ABG Potassium ABG Chloride 97.0 L ABG Glucose 281 H Carboxyhemoglobin 0.1 L Sodium Potassium Chloride Carbon Dioxide BUN Creatinine Glucose POC Glucose 298 H 340 H Lactic Acid Calcium Phosphorus Ferritin Total Bilirubin Direct Bilirubin AST ALT Lactate Dehydrogenase Total Creatine Kinase Troponin T Total Protein Albumin Triglycerides Arterial Blood Glucose 281 H Arterial Blood Ionized Calcium 3.9 L Urine pH Urine Creatinine Salicylates Acetaminophen Coronavirus (PCR) 09/10/20 09/11/20 09/11/20 23:07 04:44 05:17 WBC RBC Hgb Hct MCHC RDW Lymph % (Auto) [place] % (Auto) Lymph # (Auto) [place] # (Auto) Seg Neutrophils % Seg Neuts % (Manual) Lymphocytes % (Manual) Monocytes % (Manual) Nucleated RBC % Seg Neutrophils # Seg Neutrophils # Man Lymphocytes # (Manual) Monocytes # (Manual) PT 16.9 H INR 1.39 H D-Dimer ABG pH POC ABG pCO2 POC ABG pO2 ABG pO2 ABG HCO3 ABG Base Excess ABG Hemoglobin ABG Oxyhemoglobin ABG Sodium ABG Potassium ABG Chloride ABG Glucose Carboxyhemoglobin Sodium Potassium Chloride Carbon Dioxide BUN Creatinine Glucose POC Glucose 367 H 416 H Lactic Acid Calcium Phosphorus Ferritin Total Bilirubin Direct Bilirubin AST ALT Lactate Dehydrogenase Total Creatine Kinase Troponin T Total Protein Albumin Triglycerides Arterial Blood Glucose Arterial Blood Ionized Calcium Urine pH Urine Creatinine Salicylates Acetaminophen Coronavirus (PCR) 09/11/20 09/11/20 09/11/20 05:40 12:01 17:50 WBC RBC Hgb Hct MCHC RDW Lymph % (Auto) [place] % (Auto) Lymph # (Auto) [place] # (Auto) Seg Neutrophils % Seg Neuts % (Manual) Lymphocytes % (Manual) Monocytes % (Manual) Nucleated RBC % Seg Neutrophils # Seg Neutrophils # Man Lymphocytes # (Manual) Monocytes # (Manual) PT INR D-Dimer ABG pH 7.543 H POC ABG pCO2 POC ABG pO2 ABG pO2 112.1 H ABG HCO3 28.1 H ABG Base Excess 5.4 H ABG Hemoglobin 8.4 L ABG Oxyhemoglobin ABG Sodium ABG Potassium ABG Chloride ABG Glucose Carboxyhemoglobin Sodium Potassium Chloride Carbon Dioxide BUN Creatinine Glucose POC Glucose 418 H 404 H Lactic Acid Calcium Phosphorus Ferritin Total Bilirubin Direct Bilirubin AST ALT Lactate Dehydrogenase Total Creatine Kinase Troponin T Total Protein Albumin Triglycerides Arterial Blood Glucose Arterial Blood Ionized Calcium Urine pH Urine Creatinine Salicylates Acetaminophen Coronavirus (PCR) 09/11/20 09/11/20 09/12/20 23:10 23:43 03:15 WBC RBC Hgb Hct MCHC RDW Lymph % (Auto) [place] % (Auto) Lymph # (Auto) [place] # (Auto) Seg Neutrophils % Seg Neuts % (Manual) Lymphocytes % (Manual) Monocytes % (Manual) Nucleated RBC % Seg Neutrophils # Seg Neutrophils # Man Lymphocytes # (Manual) Monocytes # (Manual) PT INR D-Dimer ABG pH POC ABG pCO2 POC ABG pO2 ABG pO2 ABG HCO3 ABG Base Excess ABG Hemoglobin ABG Oxyhemoglobin ABG Sodium ABG Potassium ABG Chloride ABG Glucose Carboxyhemoglobin Sodium 135 L Potassium Chloride 92.3 L Carbon Dioxide BUN 62 H Creatinine 3.7 H Glucose 406 H POC Glucose 372 H 359 H Lactic Acid Calcium Phosphorus Ferritin Total Bilirubin Direct Bilirubin AST 687 H ALT 3701 H Lactate Dehydrogenase Total Creatine Kinase Troponin T Total Protein 5.8 L Albumin 3.1 L Triglycerides Arterial Blood Glucose Arterial Blood Ionized Calcium Urine pH Urine Creatinine Salicylates Acetaminophen Coronavirus (PCR) 09/12/20 09/12/20 09/12/20 03:18 04:00 04:00 WBC 13.7 H RBC 3.30 L Hgb 9.3 L Hct 27.6 L MCHC RDW 17.5 H Lymph % (Auto) [place] % (Auto) Lymph # (Auto) [place] # (Auto) Seg Neutrophils % Seg Neuts % (Manual) 76.0 H Lymphocytes % (Manual) 11.0 L Monocytes % (Manual) 13.0 H Nucleated RBC % Seg Neutrophils # Seg Neutrophils # Man 10.4 H Lymphocytes # (Manual) Monocytes # (Manual) 1.8 H PT 16.1 H INR 1.31 H D-Dimer ABG pH 7.558 H POC ABG pCO2 POC ABG pO2 74.7 L ABG pO2 ABG HCO3 ABG Base Excess ABG Hemoglobin 9.7 L ABG Oxyhemoglobin ABG Sodium 132.4 L ABG Potassium ABG Chloride 95.0 L ABG Glucose 437 H Carboxyhemoglobin Sodium Potassium Chloride Carbon Dioxide BUN Creatinine Glucose POC Glucose Lactic Acid Calcium Phosphorus Ferritin Total Bilirubin Direct Bilirubin AST ALT Lactate Dehydrogenase Total Creatine Kinase Troponin T Total Protein Albumin Triglycerides Arterial Blood Glucose 437 H Arterial Blood Ionized Calcium 4.3 L Urine pH Urine Creatinine Salicylates Acetaminophen Coronavirus (PCR) 09/12/20 09/12/20 09/12/20 04:21 05:20 06:37 WBC RBC Hgb Hct MCHC RDW Lymph % (Auto) [place] % (Auto) Lymph # (Auto) [place] # (Auto) Seg Neutrophils % Seg Neuts % (Manual) Lymphocytes % (Manual) Monocytes % (Manual) Nucleated RBC % Seg Neutrophils # Seg Neutrophils # Man Lymphocytes # (Manual) Monocytes # (Manual) PT INR D-Dimer ABG pH POC ABG pCO2 POC ABG pO2 ABG pO2 ABG HCO3 ABG Base Excess ABG Hemoglobin ABG Oxyhemoglobin ABG Sodium ABG Potassium ABG Chloride ABG Glucose Carboxyhemoglobin Sodium Potassium Chloride Carbon Dioxide BUN Creatinine Glucose POC Glucose 417 H 397 H 370 H Lactic Acid Calcium Phosphorus Ferritin Total Bilirubin Direct Bilirubin AST ALT Lactate Dehydrogenase Total Creatine Kinase Troponin T Total Protein Albumin Triglycerides Arterial Blood Glucose Arterial Blood Ionized Calcium Urine pH Urine Creatinine Salicylates Acetaminophen Coronavirus (PCR) 09/12/20 09/12/20 09/12/20 11:56 17:14 21:52 WBC RBC Hgb Hct MCHC RDW Lymph % (Auto) [place] % (Auto) Lymph # (Auto) [place] # (Auto) Seg Neutrophils % Seg Neuts % (Manual) Lymphocytes % (Manual) Monocytes % (Manual) Nucleated RBC % Seg Neutrophils # Seg Neutrophils # Man Lymphocytes # (Manual) Monocytes # (Manual) PT INR D-Dimer ABG pH POC ABG pCO2 POC ABG pO2 ABG pO2 ABG HCO3 ABG Base Excess ABG Hemoglobin ABG Oxyhemoglobin ABG Sodium ABG Potassium ABG Chloride ABG Glucose Carboxyhemoglobin Sodium Potassium Chloride Carbon Dioxide BUN Creatinine Glucose POC Glucose 341 H 325 H 285 H Lactic Acid Calcium Phosphorus Ferritin Total Bilirubin Direct Bilirubin AST ALT Lactate Dehydrogenase Total Creatine Kinase Troponin T Total Protein Albumin Triglycerides Arterial Blood Glucose Arterial Blood Ionized Calcium Urine pH Urine Creatinine Salicylates Acetaminophen Coronavirus (PCR) 09/12/20 09/12/20 09/12/20 23:39 Unknown Unknown WBC RBC Hgb Hct MCHC RDW Lymph % (Auto) [place] % (Auto) Lymph # (Auto) [place] # (Auto) Seg Neutrophils % Seg Neuts % (Manual) Lymphocytes % (Manual) Monocytes % (Manual) Nucleated RBC % Seg Neutrophils # Seg Neutrophils # Man Lymphocytes # (Manual) Monocytes # (Manual) PT INR D-Dimer ABG pH POC ABG pCO2 POC ABG pO2 ABG pO2 ABG HCO3 ABG Base Excess ABG Hemoglobin ABG Oxyhemoglobin ABG Sodium ABG Potassium ABG Chloride ABG Glucose Carboxyhemoglobin Sodium 135 L Potassium Chloride 92.2 L Carbon Dioxide BUN 65 H Creatinine 3.5 H Glucose 418 H POC Glucose 338 H Lactic Acid Calcium Phosphorus Ferritin Total Bilirubin Direct Bilirubin AST 553 H ALT 3453 H Lactate Dehydrogenase Total Creatine Kinase Troponin T Total Protein 5.9 L Albumin 3.0 L Triglycerides 220 H Arterial Blood Glucose Arterial Blood Ionized Calcium Urine pH Urine Creatinine Salicylates Acetaminophen Coronavirus (PCR) 09/13/20 09/13/20 09/13/20 04:47 05:24 10:50 WBC RBC Hgb Hct MCHC RDW Lymph % (Auto) [place] % (Auto) Lymph # (Auto) [place] # (Auto) Seg Neutrophils % Seg Neuts % (Manual) Lymphocytes % (Manual) Monocytes % (Manual) Nucleated RBC % Seg Neutrophils # Seg Neutrophils # Man Lymphocytes # (Manual) Monocytes # (Manual) PT INR D-Dimer ABG pH 7.571 H POC ABG pCO2 POC ABG pO2 69.0 L ABG pO2 ABG HCO3 ABG Base Excess ABG Hemoglobin 10.1 L ABG Oxyhemoglobin 93.2 L ABG Sodium 134.0 L ABG Potassium ABG Chloride ABG Glucose 365 H Carboxyhemoglobin 0.4 L Sodium Potassium Chloride 96.6 L Carbon Dioxide 32 H BUN 76 H Creatinine 3.1 H Glucose 395 H POC Glucose 329 H Lactic Acid Calcium Phosphorus Ferritin Total Bilirubin Direct Bilirubin AST ALT Lactate Dehydrogenase Total Creatine Kinase Troponin T Total Protein Albumin Triglycerides Arterial Blood Glucose 365 H Arterial Blood Ionized Calcium Urine pH Urine Creatinine Salicylates Acetaminophen Coronavirus (PCR) 09/13/20 09/13/20 09/13/20 11:39 17:48 23:35 WBC RBC Hgb Hct MCHC RDW Lymph % (Auto) [place] % (Auto) Lymph # (Auto) [place] # (Auto) Seg Neutrophils % Seg Neuts % (Manual) Lymphocytes % (Manual) Monocytes % (Manual) Nucleated RBC % Seg Neutrophils # Seg Neutrophils # Man Lymphocytes # (Manual) Monocytes # (Manual) PT INR D-Dimer ABG pH POC ABG pCO2 POC ABG pO2 ABG pO2 ABG HCO3 ABG Base Excess ABG Hemoglobin ABG Oxyhemoglobin ABG Sodium ABG Potassium ABG Chloride ABG Glucose Carboxyhemoglobin Sodium Potassium Chloride Carbon Dioxide BUN Creatinine Glucose POC Glucose 344 H 286 H 223 H Lactic Acid Calcium Phosphorus Ferritin Total Bilirubin Direct Bilirubin AST ALT Lactate Dehydrogenase Total Creatine Kinase Troponin T Total Protein Albumin Triglycerides Arterial Blood Glucose Arterial Blood Ionized Calcium Urine pH Urine Creatinine Salicylates Acetaminophen Coronavirus (PCR) 09/14/20 09/14/20 09/14/20 03:54 05:34 10:27 WBC RBC Hgb Hct MCHC RDW Lymph % (Auto) [place] % (Auto) Lymph # (Auto) [place] # (Auto) Seg Neutrophils % Seg Neuts % (Manual) Lymphocytes % (Manual) Monocytes % (Manual) Nucleated RBC % Seg Neutrophils # Seg Neutrophils # Man Lymphocytes # (Manual) Monocytes # (Manual) PT INR D-Dimer ABG pH POC ABG pCO2 POC ABG pO2 71.1 L ABG pO2 ABG HCO3 ABG Base Excess ABG Hemoglobin 10.3 L ABG Oxyhemoglobin ABG Sodium 135.2 L ABG Potassium ABG Chloride ABG Glucose 281 H Carboxyhemoglobin Sodium Potassium Chloride 96.6 L Carbon Dioxide BUN 100 H Creatinine 3.9 H Glucose 286 H POC Glucose 252 H Lactic Acid Calcium Phosphorus Ferritin Total Bilirubin Direct Bilirubin AST 145 H ALT 1400 H Lactate Dehydrogenase Total Creatine Kinase Troponin T Total Protein 5.6 L Albumin 2.9 L Triglycerides Arterial Blood Glucose 281 H Arterial Blood Ionized Calcium Urine pH Urine Creatinine Salicylates Acetaminophen Coronavirus (PCR) 09/14/20 09/14/20 09/14/20 11:38 17:52 23:07 WBC RBC Hgb Hct MCHC RDW Lymph % (Auto) [place] % (Auto) Lymph # (Auto) [place] # (Auto) Seg Neutrophils % Seg Neuts % (Manual) Lymphocytes % (Manual) Monocytes % (Manual) Nucleated RBC % Seg Neutrophils # Seg Neutrophils # Man Lymphocytes # (Manual) Monocytes # (Manual) PT INR D-Dimer ABG pH POC ABG pCO2 POC ABG pO2 ABG pO2 ABG HCO3 ABG Base Excess ABG Hemoglobin ABG Oxyhemoglobin ABG Sodium ABG Potassium ABG Chloride ABG Glucose Carboxyhemoglobin Sodium Potassium Chloride Carbon Dioxide BUN Creatinine Glucose POC Glucose 247 H 247 H 256 H Lactic Acid Calcium Phosphorus Ferritin Total Bilirubin Direct Bilirubin AST ALT Lactate Dehydrogenase Total Creatine Kinase Troponin T Total Protein Albumin Triglycerides Arterial Blood Glucose Arterial Blood Ionized Calcium Urine pH Urine Creatinine Salicylates Acetaminophen Coronavirus (PCR) 09/15/20 04:54 WBC RBC Hgb Hct MCHC RDW Lymph % (Auto) [place] % (Auto) Lymph # (Auto) [place] # (Auto) Seg Neutrophils % Seg Neuts % (Manual) Lymphocytes % (Manual) Monocytes % (Manual) Nucleated RBC % Seg Neutrophils # Seg Neutrophils # Man Lymphocytes # (Manual) Monocytes # (Manual) PT INR D-Dimer ABG pH POC ABG pCO2 POC ABG pO2 ABG pO2 ABG HCO3 ABG Base Excess ABG Hemoglobin ABG Oxyhemoglobin ABG Sodium ABG Potassium ABG Chloride ABG Glucose Carboxyhemoglobin Sodium Potassium Chloride Carbon Dioxide BUN Creatinine Glucose POC Glucose 271 H Lactic Acid Calcium Phosphorus Ferritin Total Bilirubin Direct Bilirubin AST ALT Lactate Dehydrogenase Total Creatine Kinase Troponin T Total Protein Albumin Triglycerides Arterial Blood Glucose Arterial Blood Ionized Calcium Urine pH Urine Creatinine Salicylates Acetaminophen Coronavirus (PCR)
--- NOTE | 2020-09-15 11:02 | Progress Note ---
Assessment and Plan Assessment and plan: S/p cardiopulmonary arrest Acute hypoxic respiratory failure Acute kidney injury Seizure disorder Hyperkalemia COVID-19 pneumonia Sepsis Transaminitis Morbid obesity. 09/15/2020. MRI brain for further evaluation. Continue AEDs of valproic acid and Keppra. Continue hemodialysis per nephrology recommendations. Overall prognosis remains guarded and poor. History Interval history: 65 y/o male with out of hospital cardiac arrest now sedated on ativan for possible seizures. Hospitalist Physical - Constitutional Vitals: Temp Pulse Resp BP Pulse Ox 99.8 F H 64 18 131/66 98 09/15/20 08:43 09/15/20 10:30 09/15/20 10:00 09/15/20 10:30 09/15/20 10:00 General appearance: Present: other (Intubated sedated) - EENT Eyes: Present: PERRL, EOM intact ENT: hearing intact, clear oral mucosa, dentition normal - Neck Neck: Present: supple, normal ROM - Respiratory Respiratory effort: normal Respiratory: bilateral: CTA - Cardiovascular Rhythm: regular Heart Sounds: Present: S1 & S2. Absent: gallop, rub - Extremities Extremities: no ischemia, No edema, Full ROM - Abdominal General gastrointestinal: soft, non-tender, non-distended, normal bowel sounds - Integumentary Integumentary: Present: clear, warm, dry - Neurologic Neurologic: CNII-XII intact, moves all extremities HEART Score - HEART Score Troponin: Troponin T 0.076 ng/mL (0.00-0.029) H 09/07/20 14:00 Results - Labs CBC & Chem 7: 09/12/20 04:00 09/14/20 10:27 Labs: Laboratory Last Values WBC 13.7 K/mm3 (4.5-11.0) H 09/12/20 04:00 RBC 3.30 M/mm3 (3.65-5.03) L 09/12/20 04:00 Hgb 9.3 gm/dl (11.8-15.2) L 09/12/20 04:00 Hct 27.6 % (35.5-45.6) L 09/12/20 04:00 MCV 84 fl (84-94) 09/12/20 04:00 MCH 28 pg (28-32) 09/12/20 04:00 MCHC 34 % (32-34) 09/12/20 04:00 RDW 17.5 % (13.2-15.2) H 09/12/20 04:00 Plt Count 180 K/mm3 (140-440) 09/12/20 04:00 Lymph % (Auto) 6.3 % (13.4-35.0) L 09/09/20 04:20 [place] % (Auto) 8.8 % (0.0-7.3) H 09/09/20 04:20 Eos % (Auto) 0.2 % (0.0-4.3) 09/09/20 04:20 Baso % (Auto) 0.2 % (0.0-1.8) 09/09/20 04:20 Lymph # (Auto) 1.0 K/mm3 (1.2-5.4) L 09/09/20 04:20 [place] # (Auto) 1.4 K/mm3 (0.0-0.8) H 09/09/20 04:20 Eos # (Auto) 0.0 K/mm3 (0.0-0.4) 09/09/20 04:20 Baso # (Auto) 0.0 K/mm3 (0.0-0.1) 09/09/20 04:20 Add Manual Diff Complete 09/12/20 04:00 Total Counted 100 09/12/20 04:00 Seg Neutrophils % 84.5 % (40.0-70.0) H 09/09/20 04:20 Seg Neuts % (Manual) 76.0 % (40.0-70.0) H 09/12/20 04:00 Band Neutrophils % 9.0 % 09/08/20 Unknown Lymphocytes % (Manual) 11.0 % (13.4-35.0) L 09/12/20 04:00 Monocytes % (Manual) 13.0 % (0.0-7.3) H 09/12/20 04:00 Eosinophils % (Manual) 2.0 % (0.0-4.3) 09/07/20 14:00 Metamyelocytes % 2.0 % 09/08/20 Unknown Nucleated RBC % Not Reportable 09/12/20 04:00 Seg Neutrophils # 13.7 K/mm3 (1.8-7.7) H 09/09/20 04:20 Seg Neutrophils # Man 10.4 K/mm3 (1.8-7.7) H 09/12/20 04:00 Band Neutrophils # 0.0 K/mm3 09/12/20 04:00 Lymphocytes # (Manual) 1.5 K/mm3 (1.2-5.4) 09/12/20 04:00 Abs React Lymphs (Man) 0.0 K/mm3 09/12/20 04:00 Monocytes # (Manual) 1.8 K/mm3 (0.0-0.8) H 09/12/20 04:00 Eosinophils # (Manual) 0.0 K/mm3 (0.0-0.4) 09/12/20 04:00 Basophils # (Manual) 0.0 K/mm3 (0.0-0.1) 09/12/20 04:00 Metamyelocytes # 0.0 K/mm3 09/12/20 04:00 Myelocytes # 0.0 K/mm3 09/12/20 04:00 Promyelocytes # 0.0 K/mm3 09/12/20 04:00 Blast Cells # 0.0 K/mm3 09/12/20 04:00 WBC Morphology Not Reportable 09/12/20 04:00 Hypersegmented Neuts Not Reportable 09/12/20 04:00 Hyposegmented Neuts Not Reportable 09/12/20 04:00 Hypogranular Neuts Not Reportable 09/12/20 04:00 Smudge Cells Not Reportable 09/12/20 04:00 Toxic Granulation Not Reportable 09/12/20 04:00 Toxic Vacuolation Not Reportable 09/12/20 04:00 Dohle Bodies Not Reportable 09/12/20 04:00 Pelger-Huet Anomaly Not Reportable 09/12/20 04:00 Justus Rods Not Reportable 09/12/20 04:00 Platelet Estimate Consistent w auto 09/12/20 04:00 Clumped Platelets Not Reportable 09/12/20 04:00 Plt Clumps, EDTA Not Reportable 09/12/20 04:00 Large Platelets Not Reportable 09/12/20 04:00 Giant Platelets Not Reportable 09/12/20 04:00 Platelet Satelliting Not Reportable 09/12/20 04:00 Plt Morphology Comment Not Reportable 09/12/20 04:00 RBC Morphology Not Reportable 09/12/20 04:00 Dimorphic RBCs Not Reportable 09/12/20 04:00 Polychromasia Not Reportable 09/12/20 04:00 Hypochromasia Few 09/12/20 04:00 Poikilocytosis Not Reportable 09/12/20 04:00 Anisocytosis Few 09/12/20 04:00 Microcytosis Few 09/12/20 04:00 Macrocytosis Not Reportable 09/12/20 04:00 Spherocytes Not Reportable 09/12/20 04:00 Pappenheimer Bodies Not Reportable 09/12/20 04:00 Sickle Cells Not Reportable 09/12/20 04:00 Target Cells Not Reportable 09/12/20 04:00 Tear Drop Cells Few 09/12/20 04:00 Ovalocytes Not Reportable 09/12/20 04:00 Helmet Cells Not Reportable 09/12/20 04:00 Batres-Dilley Bodies Not Reportable 09/12/20 04:00 [place] Rings Not Reportable 09/12/20 04:00 Manjit Cells Not Reportable 09/12/20 04:00 Bite Cells Not Reportable 09/12/20 04:00 Crenated Cell Not Reportable 09/12/20 04:00 Elliptocytes Not Reportable 09/12/20 04:00 Acanthocytes (Spur) Not Reportable 09/12/20 04:00 Rouleaux Not Reportable 09/12/20 04:00 Hemoglobin C Crystals Not Reportable 09/12/20 04:00 Schistocytes Few 09/12/20 04:00 Malaria parasites Not Reportable 09/12/20 04:00 Tommie Bodies Not Reportable 09/12/20 04:00 Hem Pathologist Commnt No 09/12/20 04:00 PT 16.1 Sec. (12.2-14.9) H 09/12/20 04:00 INR 1.31 (0.87-1.13) H 09/12/20 04:00 APTT 32.4 Sec. (24.2-36.6) 09/09/20 10:00 D-Dimer 8315.85 ng/mlDDU (0-234) H 09/07/20 14:00 ABG pH 7.442 (7.320-7.450) 09/14/20 03:54 POC ABG pCO2 42.3 mmHg (32.0-48.0) 09/14/20 03:54 ABG pCO2 33.4 mm Hg 09/11/20 05:40 POC ABG pO2 71.1 mmHg (83-108) L 09/14/20 03:54 ABG pO2 112.1 mm Hg (80.0-90.0) H 09/11/20 05:40 POC ABG HCO3 28.2 09/14/20 03:54 ABG HCO3 28.1 mmol/L (20.0-26.0) H 09/11/20 05:40 ABG O2 Saturation 98.4 % (95.0-99.0) 09/11/20 05:40 ABG O2 Content 11.6 (0.0-44) 09/11/20 05:40 POC ABG Base Excess 3.7 09/14/20 03:54 ABG Base Excess 5.4 mmol/L (-2.0-3.0) H 09/11/20 05:40 ABG Hemoglobin 10.3 (12.0-17.5) L 09/14/20 03:54 ABG Oxyhemoglobin 93.2 (94-98) L 09/13/20 04:47 ABG Carboxyhemoglobin 1.2 % (0.0-5.0) 09/11/20 05:40 ABG Methemoglobin 0.3 (0.0-1.5) 09/13/20 04:47 ABG Sodium 135.2 mmol/L (136.0-145.0) L 09/14/20 03:54 ABG Potassium 3.8 mmol/L (3.40-4.50) 09/14/20 03:54 ABG Chloride 98.0 mmol/L (98-107) 09/14/20 03:54 ABG Glucose 281 mg/dL (65-95) H 09/14/20 03:54 Oxyhemoglobin 96.8 % (95.0-99.0) 09/11/20 05:40 Carboxyhemoglobin 0.4 (0.5-1.5) L 09/13/20 04:47 FiO2 30 09/14/20 03:54 Sodium 137 mmol/L (137-145) 09/14/20 10:27 Potassium 3.9 mmol/L (3.6-5.0) 09/14/20 10:27 Chloride 96.6 mmol/L (98-107) L 09/14/20 10:27 Carbon Dioxide 30 mmol/L (22-30) 09/14/20 10:27 Anion Gap 14 mmol/L 09/14/20 10:27 BUN 100 mg/dL (9-20) H 09/14/20 10:27 Creatinine 3.9 mg/dL (0.8-1.3) H 09/14/20 10:27 Estimated GFR 19 ml/min 09/14/20 10:27 BUN/Creatinine Ratio 26 % 09/14/20 10:27 Glucose 286 mg/dL (75-100) H 09/14/20 10:27 POC Glucose 271 mg/dL (70-105) H 09/15/20 04:54 Lactic Acid 4.30 mmol/L (0.7-2.0) H* 09/07/20 14:00 Calcium 8.5 mg/dL (8.4-10.2) 09/14/20 10:27 Phosphorus 8.00 mg/dL (2.5-4.5) H 09/08/20 12:02 Magnesium 1.80 mg/dL (1.7-2.3) 09/08/20 12:02 Ferritin > 2000.0 ng/mL (30.0-300.0) H 09/07/20 14:00 Total Bilirubin 0.80 mg/dL (0.1-1.2) 09/14/20 10:27 Direct Bilirubin 0.5 mg/dL (0-0.2) H 09/08/20 05:00 Indirect Bilirubin 0.5 mg/dL 09/08/20 05:00 AST 145 units/L (5-40) H 09/14/20 10:27 ALT 1400 units/L (7-56) H 09/14/20 10:27 Alkaline Phosphatase 101 units/L (35-129) 09/14/20 10:27 Ammonia 50.0 umol/L (25-60) 09/07/20 14:00 Lactate Dehydrogenase 882 units/L (91-180) H 09/07/20 14:00 Total Creatine Kinase 477 units/L (55-170) H 09/07/20 14:00 Troponin T 0.076 ng/mL (0.00-0.029) H 09/07/20 14:00 C-Reactive Protein 1.10 mg/dL (0.00-1.30) 09/07/20 14:00 Total Protein 5.6 g/dL (6.3-8.2) L 09/14/20 10:27 Albumin 2.9 g/dL (3.9-5) L 09/14/20 10:27 Albumin/Globulin Ratio 1.1 % 09/14/20 10:27 Triglycerides 220 mg/dL (2-149) H 09/12/20 Unknown Procalcitonin 0.09 ng/mL (<0.15) 09/07/20 14:00 TSH 2.290 mlU/mL (0.270-4.200) 09/07/20 14:00 Arterial Blood Glucose 281 mg/dL (65-95) H 09/14/20 03:54 Arterial Blood Ionized Calcium 4.6 mg/dL (4.6-5.3) 09/14/20 03:54 Urine Color Straw (Yellow) 09/07/20 13:08 Urine Turbidity Slightly-cloudy (Clear) 09/07/20 13:08 Urine pH 8.0 (5.0-7.0) H 09/07/20 13:08 Ur Specific [place] 1.006 (1.003-1.030) 09/07/20 13:08 Urine Protein 100 mg/dl mg/dL (Negative) 09/07/20 13:08 Urine Glucose (UA) Neg mg/dL (Negative) 09/07/20 13:08 Urine Ketones Neg mg/dL (Negative) 09/07/20 13:08 Urine Blood Neg (Negative) 09/07/20 13:08 Urine Nitrite Neg (Negative) 09/07/20 13:08 Urine Bilirubin Neg (Negative) 09/07/20 13:08 Urine Urobilinogen < 2.0 mg/dL (<2.0) 09/07/20 13:08 Ur Leukocyte Esterase Neg (Negative) 09/07/20 13:08 Urine WBC (Auto) 4.0 /HPF (0.0-6.0) 09/07/20 13:08 Urine RBC (Auto) 18.0 /HPF (0.0-6.0) 09/07/20 13:08 U Epithel Cells (Auto) 1.0 /HPF (0-13.0) 09/07/20 13:08 Urine Mucus Few /HPF 09/07/20 13:08 Urine Sperm 3+ /HPF ([employer]) 09/07/20 13:08 Urine Creatinine 182.4 mg/dL (0.1-20.0) H 09/08/20 Unknown Urine Sodium 40 mmol/L 09/08/20 Unknown Salicylates < 0.3 mg/dL (2.8-20.0) L 09/07/20 14:00 Acetaminophen 5.0 ug/mL (10.0-30.0) L 09/07/20 14:00 Plasma/Serum Alcohol < 0.01 % (0-0.07) 09/07/20 14:00 Coronavirus (PCR) Positive (Negative) A 09/08/20 Unknown Hepatitis A IgM Ab Non-reactive (NonReactive) 09/07/20 14:00 Hep Bs Antigen Non-reactive (Negative) 09/07/20 14:00 Hep B Core IgM Ab Non-reactive (NonReactive) 09/07/20 14:00 Hepatitis C Antibody Non-reactive (NonReactive) 09/07/20 14:00 HIV 1&2 Antibody Rapid Non react (Non React) 09/07/20 14:34 HIV P24 Antigen Non react (Non React) 09/07/20 14:34 Blood Type O POSITIVE 09/09/20 10:00 Antibody Screen Negative 09/07/20 14:00 Mae/IV: Voiding Method Indwelling Catheter IV Catheter Type [Right Triple Lumen Cath Femoral] IV Catheter Type [Left Peripheral IV Antecubital] IV Catheter Type [Left Hand] Peripheral IV IV Catheter Type [Right Peripheral IV Antecubital] Active Medications - Current Medications Current Medications: Generic Name Dose Route Start Last Admin Trade Name Freq PRN Reason Stop Dose Admin Acetaminophen 400 mg 09/10/20 20:50 09/14/20 23:38 Acetaminophen 325 Mg/10.15 Ml Oral Liqd Unit Dose PO 400 mg Q4HR PRN Administration Non Cardiac Pain or Temp>100.5 Lipase/Protease/Amylase 1 each 09/09/20 09:40 Lipase 10,500/Protease 25,000/Amylase 43,750 (Units) Dr Armenta FEEDTUBE PRN PRN For Clogged Feeding Tube Hydrophilic Ointment 1 applic 09/07/20 13:08 Lip Therapy Vaseline TP Q2HR PRN Dry Lips Norepinephrine 4 mg in 250 mls @ 7.5 mls/hr 09/08/20 01:30 09/14/20 23:38 Levophed Drip 4 Mg/Ns 250 Ml IV 0 mcg/min TITR TAYLOR 0 mls/hr Titration Protocol 2 MCG/MIN Lorazepam 100 mg/ Sodium 100 mls @ 1 mls/hr 09/08/20 04:00 09/12/20 17:22 Chloride/ Miscellaneous IV 0 mg/hr Information TITR TAYLOR 0 mls/hr Titration Protocol 1 MG/HR Propofol 1,000 mg in 100 mls @ 4.995 mls/hr 09/08/20 20:00 09/14/20 21:51 Diprivan 10 Mg/Ml IV 5 mcg/kg/min TITR TAYLOR 4.995 mls/hr Administration Protocol 5 MCG/KG/MIN Sodium Chloride 100 mls @ 999 mls/hr 09/09/20 13:36 Nacl 0.9% IV JAYJAY PRN Hypotension Levetiracetam 1,500 mg/ 115 mls @ 400 mls/hr 09/11/20 10:00 09/15/20 10:10 Dextrose IV 400 mls/hr BID TAYLOR Administration Valproate Sodium 1,000 mg/ 110 mls @ 100 mls/hr 09/14/20 22:00 09/15/20 10:10 Sodium Chloride IV 100 mls/hr Q12HR TAYLOR Administration Insulin Glargine 30 units 09/14/20 22:00 09/15/20 10:11 Insulin Glargine 100 Units/Ml SUB-Q 30 units BID TAYLOR Administration Insulin Human Lispro 0 unit 09/12/20 12:00 09/15/20 05:48 Insulin Lispro 100 Unit/Ml SUB-Q 6 unit Q6HR TAYLOR Administration Protocol Lansoprazole 30 mg 09/11/20 11:00 09/15/20 10:10 Lansoprazole 30 Mg Solutab FEEDTUBE 30 mg BID TAYLOR Administration Lorazepam 2 mg 09/08/20 00:14 09/14/20 13:36 Lorazepam 2 Mg/Ml Vial IV 2 mg Q4H PRN Administration Seizures Multi-Ingred Cream/Lotion/Oil/Oint 1 applic 09/07/20 13:08 Mineral Oil/Petrolatum, White Ophth Oint 3.5 Gm OU Q4HR PRN Dry Eye(s) Multivitamins 5 ml 09/09/20 12:00 09/15/20 10:10 Multivitamins 5 Ml Oral Liquid PO 5 ml QDAY TAYLOR Administration Ondansetron HCl 4 mg 09/07/20 17:55 Ondansetron 4 Mg/2 Ml Inj IV Q8H PRN Nausea And Vomiting Senna/Docusate Sodium 2 tab 09/13/20 11:00 09/15/20 10:10 Sennosides/Docusate Sodium 8.6/50 Mg Tab PO 2 tab BID TAYLOR Administration Simple Syrup 15 ml 09/09/20 09:40 Simple Syrup 15 Ml FEEDTUBE PRN PRN Hypoglycemia Simple Syrup 30 ml 09/09/20 09:40 Simple Syrup 15 Ml FEEDTUBE PRN PRN Hypoglycemia Sodium Bicarbonate 325 mg 09/09/20 09:40 Sodium Bicarbonate 325 Mg Tab FEEDTUBE PRN PRN For Clogged Feeding Tube Sodium Chloride 10 ml 09/07/20 22:00 09/15/20 10:10 Sodium Chloride 0.9% 10 Ml Flush Syringe IV 10 ml BID TAYLOR Administration Sodium Chloride 10 ml 09/07/20 17:55 Sodium Chloride 0.9% 10 Ml Flush Syringe IV PRN PRN LINE FLUSH Nutrition/Malnutrition Assess - Dietary Evaluation Nutrition/Malnutrition Findings: Nutrition Notes Start: 09/08/20 12:01 Freq: Status: Active Protocol: Document 09/15/20 10:36 EN (Rec: 09/15/20 10:43 EN [id number]) Co-Sign 09/15/20 10:36 Nutrition Notes Initial or Follow up Reassessment Current Diagnosis Acute Kidney Injury Other Pertinent Diagnosis acute renal failure, cardiac arrest, possible seizures, COVID(+), AMS Current Diet Nepro 1.8 at 45 ml/hr Labs/Tests POC BG 271 Pertinent Medications Lantus Humalog Height 6 ft Weight 166.5 kg Lorida Body Weight (kg) 80.90 BMI 49.8 Weight Status Morbidly Obese Subjective/Other Information F/u for TF tolerance and BM. Pt has not yet had a BM. Per RN, TF infusing at goal and tolerated well Percent of energy/protein needs met: 100%/43% Burn Absent Trauma Absent GI Symptoms Constipation Current % PO Negligible Minimum of two criteria No physical signs of malnutrition #1 Nutrition Diagnosis Inadequate oral intake Diagnosis Progress(for reassessment Continues documentation) Is patient on ventilator? Yes Is Patient Ambulatory and/or Out of Bed No [facility] 2995.752 Kcal/Kg value to use for calculation 12 Approximate Energy Requirements Using 1998 kcal/Kg Calculation Used for Recommendations Kcal/kg Additional Notes PRO needs: >202g (> 2.5g/kg IBW 80.9kg) Fluid needs: 1 mL/kcal or per MD Nutrition Intervention Change Diet Order: TF Nutrition Support: Nepro 1.8 at 45 mL/hr Flush 200 mL q4h Kcal 1,944 Protein (gm) 87 Fluid (mL) 785 Goal #1 Meet at least 100% of energy needs and meet protein needs as best as possible Anticipated Discharge Needs: Unable to determine Follow-Up By: 09/19/20 Additional Comments F/u for TF tolerance and BM
--- NOTE | 2020-09-15 11:52 | Event Note ---
Date: 09/15/20 Patient unable to get MRI secondary to morbid obesity and being over table limit. Will defer to neurosurgery if they feel CT is warranted.
--- NOTE | 2020-09-15 13:27 | Progress Note ---
Assessment and Plan Cultures: Blood culture 09/07/2020 no growth SARS CoV2 PCR positive 09/07/2020 urine culture: No growth HIV, hepatitis panel: Negative Assessment: 65 years old male with unknown medical history, morbidly obese, brought to the ED by EMS on 09/07/2020 secondary to passing out, found in out of hospital cardiac arrest status post resuscitation, intubated in the field: #[id number] cardiac arrest/shock #Bilateral pneumonia secondary to COVID-19 infection. Inflammatory markers elevated. D-dimer was 8315. apparently, patient was recently hospitalized at the [facility] for COVID-19 prior to admission here. Was not a candidate for remdesivir due to hepatic and renal failure #Acute hypoxic respiratory failure: on the vent, minimal settings. #Acute renal failure: Creatinine elevated. Likely secondary to cardiac arrest/COVID-19 infection #Shock liver, transaminitis: Viral hepatitis panel negative. #Acute Encephalopathy: Initial GCS 3, noted myoclonic jerking.? Anoxic brain injury. Appreciate neurology evaluation. Recs: -continue off abx. Fevers likely central in etiology / ?due to seizures -Poor prognosis Marisol Stock MD, FACP [facility] ([facility] O: [phone] F: [phone] Subjective Date of service: 09/15/20 Principal diagnosis: Abnormal LFTs, s/p cardiac arrest, acute kidney injury with ATN Interval history: Persistent fever. Remains on the vent but minimal vent settings. Unresponsive. Objective - Exam Narrative Exam: Physical Exam (reviewed in chart to minimize risk of transmission) Constitutional: deferred Head, Ears, Nose: deferred Eyes: deferred Neck: deferred Oral: deferred Cardiovascular: deferred Respiratory: deferred GI: deferred Musculoskeletal: deferred Skin: deferred Hem/Lymphatic: deferred Psych: deferred Neurological: deferred - Constitutional Vitals: Vital Signs Temp Pulse Resp BP Pulse Ox 99.2 F 68 30 H 123/57 99 09/15/20 12:09 09/15/20 13:00 09/15/20 13:00 09/15/20 13:00 09/15/20 13:00 Temperature -Last 24 Hours Temperature 99.2 F Temperature 98.2 F Temperature 99.8 F Temperature 99.8 F Temperature 100 F Temperature 101.3 F Temperature 101.1 F Temperature 101.5 F - Labs CBC & Chem 7: 09/12/20 04:00 09/14/20 10:27 Labs: Abnormal lab results 09/14/20 09/14/20 09/14/20 Range/Units 11:38 17:52 23:07 POC Glucose 247 H 247 H 256 H (70-105) mg/dL 09/15/20 09/15/20 Range/Units 04:54 11:24 POC Glucose 271 H 228 H (70-105) mg/dL
--- NOTE | 2020-09-15 14:01 | XRay Report ---
ABDOMEN 1 VIEW(S) INDICATION / CLINICAL INFORMATION: NGT placement verification. COMPARISON: None available. FINDINGS: TUBES / LINES: The nasogastric tube terminates in the mid to distal stomach. BOWEL GAS PATTERN: No significant abnormality. FREE AIR / EXTRALUMINAL GAS: None seen. ADDITIONAL FINDINGS: No significant additional findings. IMPRESSION: No significant abnormality. Adequate nasogastric tube placement. Signer Name: Korey Arnett Jr, MD Signed: 09/15/2020 1:56 PM Workstation Name: [id number]
[2020-09-15 19:47] LABS: Calcium 8.4 mg/dL (8.4-10.2)
[2020-09-15 20:01] LABS: Hemoglobin 8.8 gm/dl (11.8-15.2); Mean Corpuscular Volume 85 fl (84-94); Red Blood Count 3.16 M/mm3 (3.65-5.03)
[2020-09-15 20:02] LABS: Mean Corpuscular HGB Conc 33 % (32-34); Platelet Count 159 K/mm3 (140-440); Red Cell Distribution Width 19.7 % (13.2-15.2)
[2020-09-15 20:47] LABS: Total Cells Counted 100
[2020-09-15 20:48] LABS: Anisocytosis Few; Hypochromasia Few; Schistocytes Few; Tear Drop Cells Few
--- NOTE | 2020-09-15 20:59 | Progress Note ---
Assessment and Plan Impression: * Nonoliguric RYAN secondary to ATN * Severe hyperkalemia - resolved * COVID 19 PNA * s/p OOH cardiac arrest * Acute hypoxic respiratory failure * Seizure activity * Anemia Plan: * Patient is s/p emergent HD on Friday (hyperK) and Friday * Plan for HD today * Please check labs daily * Strict I/O * Keep MAP > 65 * Vent management per CCM * Steroids per primary team/ID * Dose medications for renal function * Avoid potential nephrotoxins * Prognosis is guarded Subjective Date of service: 09/15/20 Principal diagnosis: Abnormal LFTs, s/p cardiac arrest, acute kidney injury with ATN Interval history: Remains intubated Good UOP Patient followed for his renal issues Nursing, interdisciplinary and consult notes were reviewed Vitals, input and output, medications and labs were reviewed Objective - Exam Narrative Exam: Deferred for PPE conservation and to prevent spread of infection - Vital Signs Vital signs: Vital Signs - 12hr 09/15/20 09/15/20 09/15/20 09:00 09:01 09:11 Temperature Pulse Rate 65 65 65 Pulse Rate [ From Monitor] Respiratory 13 21 Rate Blood Pressure 149/65 149/65 149/65 O2 Sat by Pulse 99 100 Oximetry 09/15/20 09/15/20 09/15/20 09:15 09:21 09:30 Temperature Pulse Rate 66 65 66 Pulse Rate [ From Monitor] Respiratory 21 Rate Blood Pressure 148/66 145/66 140/66 O2 Sat by Pulse 100 Oximetry 09/15/20 09/15/20 09/15/20 09:31 09:41 09:45 Temperature Pulse Rate 66 65 65 Pulse Rate [ From Monitor] Respiratory 15 16 Rate Blood Pressure 141/66 141/66 138/62 O2 Sat by Pulse 98 100 Oximetry 09/15/20 09/15/20 09/15/20 09:51 10:00 10:11 Temperature Pulse Rate 65 66 65 Pulse Rate [ From Monitor] Respiratory 16 18 17 Rate Blood Pressure 138/63 139/64 139/64 O2 Sat by Pulse 100 98 100 Oximetry 09/15/20 09/15/20 09/15/20 10:15 10:21 10:30 Temperature Pulse Rate 65 65 64 Pulse Rate [ From Monitor] Respiratory 16 Rate Blood Pressure 140/63 140/63 131/66 O2 Sat by Pulse 100 Oximetry 09/15/20 09/15/20 09/15/20 10:31 10:41 10:45 Temperature Pulse Rate 64 64 64 Pulse Rate [ From Monitor] Respiratory 16 27 H Rate Blood Pressure 131/66 131/66 142/66 O2 Sat by Pulse 98 100 Oximetry 09/15/20 09/15/20 09/15/20 10:51 11:00 11:11 Temperature Pulse Rate 64 63 64 Pulse Rate [ From Monitor] Respiratory 25 H 31 H 28 H Rate Blood Pressure 142/66 131/61 131/61 O2 Sat by Pulse 100 99 100 Oximetry 09/15/20 09/15/20 09/15/20 11:15 11:21 11:30 Temperature Pulse Rate 64 64 63 Pulse Rate [ From Monitor] Respiratory 31 H 30 H Rate Blood Pressure 130/63 130/63 128/63 O2 Sat by Pulse 100 98 Oximetry 09/15/20 09/15/20 09/15/20 11:32 11:35 11:41 Temperature Pulse Rate 63 63 64 Pulse Rate [ From Monitor] Respiratory 30 H Rate Blood Pressure 128/63 128/63 O2 Sat by Pulse 100 100 Oximetry 09/15/20 09/15/20 09/15/20 11:45 11:51 12:00 Temperature 98.2 F Pulse Rate 66 65 Pulse Rate [ 64 From Monitor] Respiratory 27 H 30 H Rate Blood Pressure 142/52 142/62 O2 Sat by Pulse 100 98 Oximetry 09/15/20 09/15/20 09/15/20 12:01 12:09 12:11 Temperature 99.2 F Pulse Rate 64 65 66 Pulse Rate [ From Monitor] Respiratory 32 H 30 H 25 H Rate Blood Pressure 135/59 135/59 135/59 O2 Sat by Pulse 97 100 Oximetry 09/15/20 09/15/20 09/15/20 12:21 12:31 12:41 Temperature Pulse Rate 72 69 69 Pulse Rate [ From Monitor] Respiratory 22 30 H 14 Rate Blood Pressure 148/66 137/59 137/59 O2 Sat by Pulse 98 98 98 Oximetry 09/15/20 09/15/20 09/15/20 12:50 13:00 13:11 Temperature Pulse Rate 70 68 67 Pulse Rate [ From Monitor] Respiratory 30 H 30 H 30 H Rate Blood Pressure 143/60 123/57 143/60 O2 Sat by Pulse 100 99 99 Oximetry 09/15/20 09/15/2021 13:21 13:31 13:41 Temperature Pulse Rate 66 71 67 Pulse Rate [ From Monitor] Respiratory 30 H 30 H 6 L Rate Blood Pressure 116/59 146/76 146/76 O2 Sat by Pulse 99 99 98 Oximetry 09/15/20 09/15/20 09/15/20 13:51 14:00 14:11 Temperature Pulse Rate 66 66 65 Pulse Rate [ From Monitor] Respiratory 0 L 0 L 0 L Rate Blood Pressure 124/60 129/59 129/59 O2 Sat by Pulse 98 97 99 Oximetry 09/15/20 09/15/20 09/15/20 14:21 14:31 14:41 Temperature Pulse Rate 65 66 70 Pulse Rate [ From Monitor] Respiratory 0 L 30 H 29 H Rate Blood Pressure 150/65 129/61 129/61 O2 Sat by Pulse 99 98 96 Oximetry 09/15/20 09/15/20 09/15/20 14:51 15:01 15:11 Temperature Pulse Rate 66 65 65 Pulse Rate [ From Monitor] Respiratory 31 H 30 H 30 H Rate Blood Pressure 137/66 133/61 133/61 O2 Sat by Pulse 99 97 98 Oximetry 09/15/20 09/15/20 09/15/20 15:21 15:30 15:41 Temperature Pulse Rate 65 64 64 Pulse Rate [ From Monitor] Respiratory 30 H 30 H 30 H Rate Blood Pressure 127/58 127/60 127/60 O2 Sat by Pulse 98 97 97 Oximetry 09/15/20 09/15/20 09/15/20 15:51 16:00 16:11 Temperature 99 F Pulse Rate 63 63 67 Pulse Rate [ From Monitor] Respiratory 30 H 30 H 25 H Rate Blood Pressure 123/57 122/60 122/60 O2 Sat by Pulse 97 97 97 Oximetry 09/15/20 09/15/20 09/15/20 16:21 16:23 16:30 Temperature Pulse Rate 64 64 64 Pulse Rate [ 64 From Monitor] Respiratory 31 H 30 H 31 H Rate Blood Pressure 123/63 136/63 O2 Sat by Pulse 98 98 97 Oximetry 09/15/20 09/15/20 09/15/20 16:38 16:41 16:51 Temperature Pulse Rate 66 64 64 Pulse Rate [ From Monitor] Respiratory 30 H 30 H Rate Blood Pressure 136/63 136/63 145/65 O2 Sat by Pulse 98 99 99 Oximetry 09/15/20 09/15/20 09/15/20 17:01 17:11 17:21 Temperature Pulse Rate 65 65 66 Pulse Rate [ From Monitor] Respiratory 30 H 30 H 30 H Rate Blood Pressure 131/63 131/63 140/64 O2 Sat by Pulse 98 98 99 Oximetry 09/15/20 09/15/20 09/15/20 17:31 17:41 17:51 Temperature Pulse Rate 65 65 65 Pulse Rate [ From Monitor] Respiratory 30 H 30 H 30 H Rate Blood Pressure 129/58 140/64 122/58 O2 Sat by Pulse 98 99 100 Oximetry 09/15/20 09/15/20 09/15/20 18:00 18:11 18:21 Temperature Pulse Rate 64 64 63 Pulse Rate [ From Monitor] Respiratory 30 H 24 30 H Rate Blood Pressure 124/58 124/58 122/57 O2 Sat by Pulse 99 99 99 Oximetry 09/15/20 09/15/20 09/15/20 18:30 18:41 18:51 Temperature Pulse Rate 62 64 63 Pulse Rate [ From Monitor] Respiratory 30 H 30 H 32 H Rate Blood Pressure 123/60 123/60 128/63 O2 Sat by Pulse 98 99 99 Oximetry 09/15/20 09/15/20 09/15/20 19:00 19:11 19:21 Temperature Pulse Rate 62 63 64 Pulse Rate [ From Monitor] Respiratory 30 H 30 H 30 H Rate Blood Pressure 128/61 128/61 129/59 O2 Sat by Pulse 97 98 98 Oximetry 09/15/20 09/15/20 09/15/20 19:30 19:35 19:49 Temperature 99 F Pulse Rate 63 64 Pulse Rate [ From Monitor] Respiratory 30 H Rate Blood Pressure 130/59 130/59 O2 Sat by Pulse 97 98 Oximetry - Lab 09/15/20 19:20 09/15/20 19:20 Most recent lab results ABG pH 7.442 (7.320-7.450) 09/14/20 03:54 ABG pCO2 33.4 mm Hg 09/11/20 05:40 ABG pO2 112.1 mm Hg (80.0-90.0) H 09/11/20 05:40 ABG HCO3 28.1 mmol/L (20.0-26.0) H 09/11/20 05:40 ABG O2 Saturation 98.4 % (95.0-99.0) 09/11/20 05:40 Calcium 8.4 mg/dL (8.4-10.2) 09/15/20 19:20 Phosphorus 8.00 mg/dL (2.5-4.5) H 09/08/20 12:02 Magnesium 1.80 mg/dL (1.7-2.3) 09/08/20 12:02 Urine Creatinine 182.4 mg/dL (0.1-20.0) H 09/08/20 Unknown Urine Sodium 40 mmol/L 09/08/20 Unknown Medications & Allergies - Medications Allergies/Adverse Reactions: Allergies Unable to Assess Allergy (Verified 09/07/20 13:43) intubated Home Medications: Home Medications Medication Instructions Recorded Confirmed Last Taken Type Albuterol Sulfate 60 mcg IH PRN 09/11/20 09/11/20 Unknown History Cholecalciferol (Vitamin D3) 25 tab PO DAILY 09/11/20 09/11/20 Unknown History Cozaar 25 tab PO DAILY 09/11/20 09/11/20 Unknown History HumaLOG 14 unit SQ AC 09/11/20 09/11/20 Unknown History Hydralazine HCl 50 tab PO TID 09/11/20 09/11/20 Unknown History Isosorbide Dinitrate 30 mg PO DAILY 09/11/20 09/11/20 Unknown History Lantus VIAL 54 units SQ HS 09/11/20 09/11/20 Unknown History Lasix 20 tab PO DAILY 09/11/20 09/11/20 Unknown History Nifedipine 30 tab PO DAILY 09/11/20 09/11/20 Unknown History Active Medications: Generic Name Dose Route Start Last Admin Trade Name Freq PRN Reason Stop Dose Admin Acetaminophen 400 mg 09/10/20 20:50 09/14/20 23:38 Acetaminophen 325 Mg/10.15 Ml Oral Liqd Unit Dose PO 400 mg Q4HR PRN Administration Non Cardiac Pain or Temp>100.5 Lipase/Protease/Amylase 1 each 09/09/20 09:40 Lipase 10,500/Protease 25,000/Amylase 43,750 (Units) Dr Armenta FEEDTUBE PRN PRN For Clogged Feeding Tube Hydrophilic Ointment 1 applic 09/07/20 13:08 Lip Therapy Vaseline TP Q2HR PRN Dry Lips Norepinephrine 4 mg in 250 mls @ 7.5 mls/hr 09/08/20 01:30 09/14/20 23:38 Levophed Drip 4 Mg/Ns 250 Ml IV 0 mcg/min TITR TAYLOR 0 mls/hr Titration Protocol 2 MCG/MIN Lorazepam 100 mg/ Sodium 100 mls @ 1 mls/hr 09/08/20 04:00 09/12/20 17:22 Chloride/ Miscellaneous IV 0 mg/hr Information TITR TAYLOR 0 mls/hr Titration Protocol 1 MG/HR Propofol 1,000 mg in 100 mls @ 4.995 mls/hr 09/08/20 20:00 09/15/20 07:00 Diprivan 10 Mg/Ml IV 0 mcg/kg/min TITR TAYLOR 0 mls/hr Titration Protocol 5 MCG/KG/MIN Sodium Chloride 100 mls @ 999 mls/hr 09/09/20 13:36 Nacl 0.9% IV JAYJAY PRN Hypotension Levetiracetam 1,500 mg/ 115 mls @ 400 mls/hr 09/11/20 10:00 09/15/20 10:10 Dextrose IV 400 mls/hr BID TAYLOR Administration Valproate Sodium 1,000 mg/ 110 mls @ 100 mls/hr 09/14/20 22:00 09/15/20 10:10 Sodium Chloride IV 100 mls/hr Q12HR TAYLOR Administration Insulin Glargine 30 units 09/14/20 22:00 09/15/20 10:11 Insulin Glargine 100 Units/Ml SUB-Q 30 units BID TAYLOR Administration Insulin Human Lispro 0 unit 09/12/20 12:00 09/15/20 18:05 Insulin Lispro 100 Unit/Ml SUB-Q 6 unit Q6HR TAYLOR Administration Protocol Lansoprazole 30 mg 09/11/20 11:00 09/15/20 10:10 Lansoprazole 30 Mg Solutab FEEDTUBE 30 mg BID TAYLOR Administration Lorazepam 2 mg 09/08/20 00:14 09/14/20 13:36 Lorazepam 2 Mg/Ml Vial IV 2 mg Q4H PRN Administration Seizures Multi-Ingred Cream/Lotion/Oil/Oint 1 applic 09/07/20 13:08 Mineral Oil/Petrolatum, White Ophth Oint 3.5 Gm OU Q4HR PRN Dry Eye(s) Multivitamins 5 ml 09/09/20 12:00 09/15/20 10:10 Multivitamins 5 Ml Oral Liquid PO 5 ml QDAY TAYLOR Administration Ondansetron HCl 4 mg 09/07/20 17:55 Ondansetron 4 Mg/2 Ml Inj IV Q8H PRN Nausea And Vomiting Senna/Docusate Sodium 2 tab 09/13/20 11:00 09/15/20 10:10 Sennosides/Docusate Sodium 8.6/50 Mg Tab PO 2 tab BID TAYLOR Administration Simple Syrup 15 ml 09/09/20 09:40 Simple Syrup 15 Ml FEEDTUBE PRN PRN Hypoglycemia Simple Syrup 30 ml 09/09/20 09:40 Simple Syrup 15 Ml FEEDTUBE PRN PRN Hypoglycemia Sodium Bicarbonate 325 mg 09/09/20 09:40 Sodium Bicarbonate 325 Mg Tab FEEDTUBE PRN PRN For Clogged Feeding Tube Sodium Chloride 10 ml 09/07/20 22:00 09/15/20 10:10 Sodium Chloride 0.9% 10 Ml Flush Syringe IV 10 ml BID TAYLOR Administration Sodium Chloride 10 ml 09/07/20 17:55 Sodium Chloride 0.9% 10 Ml Flush Syringe IV PRN PRN LINE FLUSH
[2020-09-16] MEDS: INSULIN LISPRO 100 UNIT/ML SUB-Q SCH ×4 (00:55→17:47)
--- NOTE | 2020-09-16 09:21 | XRay Report ---
CHEST 1 VIEW INDICATION / CLINICAL INFORMATION: Post ET Tube Replacement. Respiratory distress. FINDINGS: SUPPORT DEVICES: The endotracheal tube projects about 4 cm above the katiana. HEART / MEDIASTINUM: No significant abnormality. LUNGS / PLEURA: Faint ill-defined bibasilar airspace opacities persist. No pneumothorax. Signer Name: Jelani Beltran MD Signed: 09/16/2020 9:16 AM Workstation Name: [id number]
[2020-09-16] MEDS: VALPROATE SODIUM 1,000 MG in SODIUM CHLORIDE 0.9% 100 ML IV SCH ×2 (09:55→21:49)
[2020-09-16] MEDS: INSULIN GLARGINE 100 UNITS/ML SUB-Q SCH ×2 (09:55→21:42)
[2020-09-16] MEDS: levETIRAcetam 1,500 MG in DEXTROSE 5% IN WATER 100 ML IV SCH ×2 (09:55→21:49)
[2020-09-16] MEDS: SENNOSIDES/DOCUSATE SODIUM 8.6/50 MG TAB PO SCH ×2 (09:56→21:51)
[2020-09-16] MEDS: LANSOPRAZOLE 30 MG SOLUTAB FEEDTUBE SCH ×2 (09:56→21:43)
[2020-09-16] MEDS: MULTIVITAMINS 5 ML ORAL LIQUID PO SCH (09:56)
--- NOTE | 2020-09-16 10:54 | Progress Note ---
Assessment and Plan Assessment and plan: S/p cardiopulmonary arrest Toxic metabolic encephalopathy +/-anoxic injury Acute hypoxic respiratory failure Acute kidney injury Seizure disorder Hyperkalemia COVID-19 pneumonia Sepsis Transaminitis Morbid obesity. 09/15/2020. MRI brain for further evaluation. Continue AEDs of valproic acid and Keppra. Continue hemodialysis per nephrology recommendations. Overall prognosis remains guarded and poor. 09/16/2020. ID recommends continue to monitor patient off of antibiotics. Fever most likely of central etiology. Patient with questionable seizures versus myoclonus from anoxic brain injury. Patient unable to undergo MRI due to body habitus. Continue AEDs per neurology recommendations. Inflammatory markers elevated. Patient was recently hospitalized for COVID-19 pneumonia at the [place] prior to being hospitalized here. Patient not a candidate for remdesivir due to hepatic and renal failure. Viral hepatitis panel negative. Overall prognosis extremely poor. The high probability of a clinically significant, sudden or life threatening deterioration of the [cardiac, respiratory and neurological] system(s) required my full and direct attention, intervention and personal management. The aggregate critical care time was [32] minutes. This time is in addition to time spent performing reported procedures but includes the following: [x] Data Review and interpretation [x] Patient assessment and monitoring of vital signs [x] Documentation [x] Medication orders and management History Interval history: 65 y/o male with out of hospital cardiac arrest now sedated on ativan for possible seizures. Hospitalist Physical - Constitutional Vitals: Temp Pulse Resp BP Pulse Ox 98.1 F 65 14 147/70 99 09/16/20 07:00 09/16/20 09:51 09/16/20 09:51 09/16/20 09:51 09/16/20 09:51 General appearance: Present: other (Intubated sedated) - EENT Eyes: Present: PERRL, EOM intact ENT: hearing intact, clear oral mucosa, dentition normal - Neck Neck: Present: supple, normal ROM - Respiratory Respiratory effort: normal Respiratory: bilateral: CTA - Cardiovascular Rhythm: regular Heart Sounds: Present: S1 & S2. Absent: gallop, rub - Extremities Extremities: no ischemia, No edema, Full ROM - Abdominal General gastrointestinal: soft, non-tender, non-distended, normal bowel sounds - Integumentary Integumentary: Present: clear, warm, dry - Neurologic Neurologic: CNII-XII intact, moves all extremities HEART Score - HEART Score Troponin: Troponin T 0.076 ng/mL (0.00-0.029) H 09/07/20 14:00 Results - Labs CBC & Chem 7: 09/15/20 19:20 09/15/20 19:20 Labs: Laboratory Last Values WBC 27.3 K/mm3 (4.5-11.0) H 09/15/20 19:20 RBC 3.16 M/mm3 (3.65-5.03) L 09/15/20 19:20 Hgb 8.8 gm/dl (11.8-15.2) L 09/15/20 19:20 Hct 27.0 % (35.5-45.6) L 09/15/20 19:20 MCV 85 fl (84-94) 09/15/20 19:20 MCH 28 pg (28-32) 09/15/20 19:20 MCHC 33 % (32-34) 09/15/20 19:20 RDW 19.7 % (13.2-15.2) H 09/15/20 19:20 Plt Count 159 K/mm3 (140-440) 09/15/20 19:20 Lymph % (Auto) 6.3 % (13.4-35.0) L 09/09/20 04:20 [place] % (Auto) 8.8 % (0.0-7.3) H 09/09/20 04:20 Eos % (Auto) 0.2 % (0.0-4.3) 09/09/20 04:20 Baso % (Auto) 0.2 % (0.0-1.8) 09/09/20 04:20 Lymph # (Auto) 1.0 K/mm3 (1.2-5.4) L 09/09/20 04:20 [place] # (Auto) 1.4 K/mm3 (0.0-0.8) H 09/09/20 04:20 Eos # (Auto) 0.0 K/mm3 (0.0-0.4) 09/09/20 04:20 Baso # (Auto) 0.0 K/mm3 (0.0-0.1) 09/09/20 04:20 Add Manual Diff Complete 09/15/20 19:20 Total Counted 100 09/15/20 19:20 Seg Neutrophils % 84.5 % (40.0-70.0) H 09/09/20 04:20 Seg Neuts % (Manual) 81.0 % (40.0-70.0) H 09/15/20 19:20 Band Neutrophils % 9.0 % 09/08/20 Unknown Lymphocytes % (Manual) 9.0 % (13.4-35.0) L 09/15/20 19:20 Monocytes % (Manual) 10.0 % (0.0-7.3) H 09/15/20 19:20 Eosinophils % (Manual) 2.0 % (0.0-4.3) 09/07/20 14:00 Metamyelocytes % 2.0 % 09/08/20 Unknown Nucleated RBC % Not Reportable 09/15/20 19:20 Seg Neutrophils # 13.7 K/mm3 (1.8-7.7) H 09/09/20 04:20 Seg Neutrophils # Man 22.1 K/mm3 (1.8-7.7) H 09/15/20 19:20 Band Neutrophils # 0.0 K/mm3 09/15/20 19:20 Lymphocytes # (Manual) 2.5 K/mm3 (1.2-5.4) 09/15/20 19:20 Abs React Lymphs (Man) 0.0 K/mm3 09/15/20 19:20 Monocytes # (Manual) 2.7 K/mm3 (0.0-0.8) H 09/15/20 19:20 Eosinophils # (Manual) 0.0 K/mm3 (0.0-0.4) 09/15/20 19:20 Basophils # (Manual) 0.0 K/mm3 (0.0-0.1) 09/15/20 19:20 Metamyelocytes # 0.0 K/mm3 09/15/20 19:20 Myelocytes # 0.0 K/mm3 09/15/20 19:20 Promyelocytes # 0.0 K/mm3 09/15/20 19:20 Blast Cells # 0.0 K/mm3 09/15/20 19:20 WBC Morphology Not Reportable 09/15/20 19:20 Hypersegmented Neuts Not Reportable 09/15/20 19:20 Hyposegmented Neuts Not Reportable 09/15/20 19:20 Hypogranular Neuts Not Reportable 09/15/20 19:20 Smudge Cells Not Reportable 09/15/20 19:20 Toxic Granulation Not Reportable 09/15/20 19:20 Toxic Vacuolation Not Reportable 09/15/20 19:20 Dohle Bodies Not Reportable 09/15/20 19:20 Pelger-Huet Anomaly Not Reportable 09/15/20 19:20 Justus Rods Not Reportable 09/15/20 19:20 Platelet Estimate Not Reportable 09/15/20 19:20 Clumped Platelets Not Reportable 09/15/20 19:20 Plt Clumps, EDTA Not Reportable 09/15/20 19:20 Large Platelets Not Reportable 09/15/20 19:20 Giant Platelets Not Reportable 09/15/20 19:20 Platelet Satelliting Not Reportable 09/15/20 19:20 Plt Morphology Comment Not Reportable 09/15/20 19:20 RBC Morphology Not Reportable 09/15/20 19:20 Dimorphic RBCs Not Reportable 09/15/20 19:20 Polychromasia Not Reportable 09/15/20 19:20 Hypochromasia Few 09/15/20 19:20 Poikilocytosis Not Reportable 09/15/20 19:20 Anisocytosis Few 09/15/20 19:20 Microcytosis Few 09/15/20 19:20 Macrocytosis Not Reportable 09/15/20 19:20 Spherocytes Not Reportable 09/15/20 19:20 Pappenheimer Bodies Not Reportable 09/15/20 19:20 Sickle Cells Not Reportable 09/15/20 19:20 Target Cells Not Reportable 09/15/20 19:20 Tear Drop Cells Few 09/15/20 19:20 Ovalocytes Not Reportable 09/15/20 19:20 Helmet Cells Not Reportable 09/15/20 19:20 Batres-Kersey Bodies Not Reportable 09/15/20 19:20 [place] Rings Not Reportable 09/15/20 19:20 Manjit Cells Not Reportable 09/15/20 19:20 Bite Cells Not Reportable 09/15/20 19:20 Crenated Cell Not Reportable 09/15/20 19:20 Elliptocytes Not Reportable 09/15/20 19:20 Acanthocytes (Spur) Not Reportable 09/15/20 19:20 Rouleaux Not Reportable 09/15/20 19:20 Hemoglobin C Crystals Not Reportable 09/15/20 19:20 Schistocytes Few 09/15/20 19:20 Malaria parasites Not Reportable 09/15/20 19:20 [place] Bodies Not Reportable 09/15/20 19:20 Hem Pathologist Commnt No 09/15/20 19:20 PT 16.1 Sec. (12.2-14.9) H 09/12/20 04:00 INR 1.31 (0.87-1.13) H 09/12/20 04:00 APTT 32.4 Sec. (24.2-36.6) 09/09/20 10:00 D-Dimer 8315.85 ng/mlDDU (0-234) H 09/07/20 14:00 ABG pH 7.442 (7.320-7.450) 09/14/20 03:54 POC ABG pCO2 42.3 mmHg (32.0-48.0) 09/14/20 03:54 ABG pCO2 33.4 mm Hg 09/11/20 05:40 POC ABG pO2 71.1 mmHg (83-108) L 09/14/20 03:54 ABG pO2 112.1 mm Hg (80.0-90.0) H 09/11/20 05:40 POC ABG HCO3 28.2 09/14/20 03:54 ABG HCO3 28.1 mmol/L (20.0-26.0) H 09/11/20 05:40 ABG O2 Saturation 98.4 % (95.0-99.0) 09/11/20 05:40 ABG O2 Content 11.6 (0.0-44) 09/11/20 05:40 POC ABG Base Excess 3.7 09/14/20 03:54 ABG Base Excess 5.4 mmol/L (-2.0-3.0) H 09/11/20 05:40 ABG Hemoglobin 10.3 (12.0-17.5) L 09/14/20 03:54 ABG Oxyhemoglobin 93.2 (94-98) L 09/13/20 04:47 ABG Carboxyhemoglobin 1.2 % (0.0-5.0) 09/11/20 05:40 ABG Methemoglobin 0.3 (0.0-1.5) 09/13/20 04:47 ABG Sodium 135.2 mmol/L (136.0-145.0) L 09/14/20 03:54 ABG Potassium 3.8 mmol/L (3.40-4.50) 09/14/20 03:54 ABG Chloride 98.0 mmol/L (98-107) 09/14/20 03:54 ABG Glucose 281 mg/dL (65-95) H 09/14/20 03:54 Oxyhemoglobin 96.8 % (95.0-99.0) 09/11/20 05:40 Carboxyhemoglobin 0.4 (0.5-1.5) L 09/13/20 04:47 FiO2 30 09/14/20 03:54 Sodium 139 mmol/L (137-145) 09/15/20 19:20 Potassium 4.0 mmol/L (3.6-5.0) 09/15/20 19:20 Chloride 100.3 mmol/L (98-107) 09/15/20 19:20 Carbon Dioxide 28 mmol/L (22-30) 09/15/20 19:20 Anion Gap 15 mmol/L 09/15/20 19:20 BUN 68 mg/dL (9-20) H 09/15/20 19:20 Creatinine 2.8 mg/dL (0.8-1.3) H 09/15/20 19:20 Estimated GFR 28 ml/min 09/15/20 19:20 BUN/Creatinine Ratio 24 % 09/15/20 19:20 Glucose 288 mg/dL (75-100) H 09/15/20 19:20 POC Glucose 275 mg/dL (70-105) H 09/16/20 05:27 Lactic Acid 4.30 mmol/L (0.7-2.0) H* 09/07/20 14:00 Calcium 8.4 mg/dL (8.4-10.2) 09/15/20 19:20 Phosphorus 8.00 mg/dL (2.5-4.5) H 09/08/20 12:02 Magnesium 1.80 mg/dL (1.7-2.3) 09/08/20 12:02 Ferritin > 2000.0 ng/mL (30.0-300.0) H 09/07/20 14:00 Total Bilirubin 0.80 mg/dL (0.1-1.2) 09/14/20 10:27 Direct Bilirubin 0.5 mg/dL (0-0.2) H 09/08/20 05:00 Indirect Bilirubin 0.5 mg/dL 09/08/20 05:00 AST 145 units/L (5-40) H 09/14/20 10:27 ALT 1400 units/L (7-56) H 09/14/20 10:27 Alkaline Phosphatase 101 units/L (35-129) 09/14/20 10:27 Ammonia 50.0 umol/L (25-60) 09/07/20 14:00 Lactate Dehydrogenase 882 units/L (91-180) H 09/07/20 14:00 Total Creatine Kinase 477 units/L (55-170) H 09/07/20 14:00 Troponin T 0.076 ng/mL (0.00-0.029) H 09/07/20 14:00 C-Reactive Protein 1.10 mg/dL (0.00-1.30) 09/07/20 14:00 Total Protein 5.6 g/dL (6.3-8.2) L 09/14/20 10:27 Albumin 2.9 g/dL (3.9-5) L 09/14/20 10:27 Albumin/Globulin Ratio 1.1 % 09/14/20 10:27 Triglycerides 220 mg/dL (2-149) H 09/12/20 Unknown Procalcitonin 0.09 ng/mL (<0.15) 09/07/20 14:00 TSH 2.290 mlU/mL (0.270-4.200) 09/07/20 14:00 Arterial Blood Glucose 281 mg/dL (65-95) H 09/14/20 03:54 Arterial Blood Ionized Calcium 4.6 mg/dL (4.6-5.3) 09/14/20 03:54 Urine Color Straw (Yellow) 09/07/20 13:08 Urine Turbidity Slightly-cloudy (Clear) 09/07/20 13:08 Urine pH 8.0 (5.0-7.0) H 09/07/20 13:08 Ur Specific [place] 1.006 (1.003-1.030) 09/07/20 13:08 Urine Protein 100 mg/dl mg/dL (Negative) 09/07/20 13:08 Urine Glucose (UA) Neg mg/dL (Negative) 09/07/20 13:08 Urine Ketones Neg mg/dL (Negative) 09/07/20 13:08 Urine Blood Neg (Negative) 09/07/20 13:08 Urine Nitrite Neg (Negative) 09/07/20 13:08 Urine Bilirubin Neg (Negative) 09/07/20 13:08 Urine Urobilinogen < 2.0 mg/dL (<2.0) 09/07/20 13:08 Ur Leukocyte Esterase Neg (Negative) 09/07/20 13:08 Urine WBC (Auto) 4.0 /HPF (0.0-6.0) 09/07/20 13:08 Urine RBC (Auto) 18.0 /HPF (0.0-6.0) 09/07/20 13:08 U Epithel Cells (Auto) 1.0 /HPF (0-13.0) 09/07/20 13:08 Urine Mucus Few /HPF 09/07/20 13:08 Urine Sperm 3+ /HPF (VIDEO SYSTEM REPAIRER) 09/07/20 13:08 Urine Creatinine 182.4 mg/dL (0.1-20.0) H 09/08/20 Unknown Urine Sodium 40 mmol/L 09/08/20 Unknown Salicylates < 0.3 mg/dL (2.8-20.0) L 09/07/20 14:00 Acetaminophen 5.0 ug/mL (10.0-30.0) L 09/07/20 14:00 Plasma/Serum Alcohol < 0.01 % (0-0.07) 09/07/20 14:00 Coronavirus (PCR) Positive (Negative) A 09/08/20 Unknown Hepatitis A IgM Ab Non-reactive (NonReactive) 09/07/20 14:00 Hep Bs Antigen Non-reactive (Negative) 09/07/20 14:00 Hep B Core IgM Ab Non-reactive (NonReactive) 09/07/20 14:00 Hepatitis C Antibody Non-reactive (NonReactive) 09/07/20 14:00 HIV 1&2 Antibody Rapid Non react (Non React) 09/07/20 14:34 HIV P24 Antigen Non react (Non React) 09/07/20 14:34 Blood Type O POSITIVE 09/09/20 10:00 Antibody Screen Negative 09/07/20 14:00 Mae/IV: Voiding Method Indwelling Catheter IV Catheter Type [Right Triple Lumen Cath Femoral] IV Catheter Type [Left Peripheral IV Antecubital] IV Catheter Type [Left Hand] Peripheral IV IV Catheter Type [Right Peripheral IV Antecubital] Active Medications - Current Medications Current Medications: Generic Name Dose Route Start Last Admin Trade Name Freq PRN Reason Stop Dose Admin Acetaminophen 400 mg 09/10/20 20:50 09/14/20 23:38 Acetaminophen 325 Mg/10.15 Ml Oral Liqd Unit Dose PO 400 mg Q4HR PRN Administration Non Cardiac Pain or Temp>100.5 Lipase/Protease/Amylase 1 each 09/09/20 09:40 Lipase 10,500/Protease 25,000/Amylase 43,750 (Units) Dr Cap FEEDTUBE PRN PRN For Clogged Feeding Tube Hydrophilic Ointment 1 applic 09/07/20 13:08 Lip Therapy Vaseline TP Q2HR PRN Dry Lips Norepinephrine 4 mg in 250 mls @ 7.5 mls/hr 09/08/20 01:30 09/14/20 23:38 Levophed Drip 4 Mg/Ns 250 Ml IV 0 mcg/min TITR TAYLOR 0 mls/hr Titration Protocol 2 MCG/MIN Lorazepam 100 mg/ Sodium 100 mls @ 1 mls/hr 09/08/20 04:00 09/12/20 17:22 Chloride/ Miscellaneous IV 0 mg/hr Information TITR TAYLOR 0 mls/hr Titration Protocol 1 MG/HR Propofol 1,000 mg in 100 mls @ 4.995 mls/hr 09/08/20 20:00 09/15/20 07:00 Diprivan 10 Mg/Ml IV 0 mcg/kg/min TITR TAYLOR 0 mls/hr Titration Protocol 5 MCG/KG/MIN Sodium Chloride 100 mls @ 999 mls/hr 09/09/20 13:36 Nacl 0.9% IV JAYJAY PRN Hypotension Levetiracetam 1,500 mg/ 115 mls @ 400 mls/hr 09/11/20 10:00 09/16/20 09:55 Dextrose IV 400 mls/hr BID TAYLOR Administration Valproate Sodium 1,000 mg/ 110 mls @ 100 mls/hr 09/14/20 22:00 09/16/20 09:55 Sodium Chloride IV 100 mls/hr Q12HR TAYLOR Administration Insulin Glargine 30 units 09/14/20 22:00 09/16/20 09:55 Insulin Glargine 100 Units/Ml SUB-Q 30 units BID TAYLOR Administration Insulin Human Lispro 0 unit 09/12/20 12:00 09/16/20 06:24 Insulin Lispro 100 Unit/Ml SUB-Q 6 unit Q6HR TAYLOR Administration Protocol Lansoprazole 30 mg 09/11/20 11:00 09/16/20 09:56 Lansoprazole 30 Mg Solutab FEEDTUBE 30 mg BID TAYLOR Administration Lorazepam 2 mg 09/08/20 00:14 09/14/20 13:36 Lorazepam 2 Mg/Ml Vial IV 2 mg Q4H PRN Administration Seizures Multi-Ingred Cream/Lotion/Oil/Oint 1 applic 09/07/20 13:08 Mineral Oil/Petrolatum, White Ophth Oint 3.5 Gm OU Q4HR PRN Dry Eye(s) Multivitamins 5 ml 09/09/20 12:00 09/16/20 09:56 Multivitamins 5 Ml Oral Liquid PO 5 ml QDAY TAYLOR Administration Ondansetron HCl 4 mg 09/07/20 17:55 Ondansetron 4 Mg/2 Ml Inj IV Q8H PRN Nausea And Vomiting Senna/Docusate Sodium 2 tab 09/13/20 11:00 09/16/20 09:56 Sennosides/Docusate Sodium 8.6/50 Mg Tab PO 2 tab BID TAYLOR Administration Simple Syrup 15 ml 09/09/20 09:40 Simple Syrup 15 Ml FEEDTUBE PRN PRN Hypoglycemia Simple Syrup 30 ml 09/09/20 09:40 Simple Syrup 15 Ml FEEDTUBE PRN PRN Hypoglycemia Sodium Bicarbonate 325 mg 09/09/20 09:40 Sodium Bicarbonate 325 Mg Tab FEEDTUBE PRN PRN For Clogged Feeding Tube Sodium Chloride 10 ml 09/07/20 22:00 09/16/20 09:56 Sodium Chloride 0.9% 10 Ml Flush Syringe IV 10 ml BID TAYLOR Administration Sodium Chloride 10 ml 09/07/20 17:55 Sodium Chloride 0.9% 10 Ml Flush Syringe IV PRN PRN LINE FLUSH Nutrition/Malnutrition Assess - Dietary Evaluation Nutrition/Malnutrition Findings: Nutrition Notes Start: 09/08/20 12:01 Freq: Status: Active Protocol: Document 09/15/20 10:36 EN (Rec: 09/15/20 10:43 EN [email or web address]) Co-Sign 09/15/20 10:36 MK Nutrition Notes Initial or Follow up Reassessment Current Diagnosis Acute Kidney Injury Other Pertinent Diagnosis acute renal failure, cardiac arrest, possible seizures, COVID(+), AMS Current Diet Nepro 1.8 at 45 ml/hr Labs/Tests POC BG 271 Pertinent Medications Lantus Humalog Height 6 ft Weight 166.5 kg [place] Body Weight (kg) 80.90 BMI 49.8 Weight Status Morbidly Obese Subjective/Other Information F/u for TF tolerance and BM. Pt has not yet had a BM. Per RN, TF infusing at goal and tolerated well Percent of energy/protein needs met: 100%/43% Burn Absent Trauma Absent GI Symptoms Constipation Current % PO Negligible Minimum of two criteria No physical signs of malnutrition #1 Nutrition Diagnosis Inadequate oral intake Diagnosis Progress(for reassessment Continues documentation) Is patient on ventilator? Yes Is Patient Ambulatory and/or Out of Bed No REE-([place]-St. Jeor-confined to bed) 2995.752 Kcal/Kg value to use for calculation 12 Approximate Energy Requirements Using 1998 kcal/Kg Calculation Used for Recommendations Kcal/kg Additional Notes PRO needs: >202g (> 2.5g/kg IBW 80.9kg) Fluid needs: 1 mL/kcal or per MD Nutrition Intervention Change Diet Order: TF Nutrition Support: Nepro 1.8 at 45 mL/hr Flush 200 mL q4h Kcal 1,944 Protein (gm) 87 Fluid (mL) 785 Goal #1 Meet at least 100% of energy needs and meet protein needs as best as possible Anticipated Discharge Needs: Unable to determine Follow-Up By: 09/19/20 Additional Comments F/u for TF tolerance and BM
[2020-09-16 11:21] LABS: Calcium 8.8 mg/dL (8.4-10.2)
--- NOTE | 2020-09-16 12:03 | Cat Scan Report ---
CT head/brain wo con INDICATION: Eval of edema seen previously. TECHNIQUE: Head CT without contrast. All CT scans at this location are performed using CT dose reduction for ALA RA by means of automated exposure control. COMPARISON: Head CT on 09/11/2020 FINDINGS: There has been mild improvement in the findings of diffuse cerebral edema since prior study. There is slightly increased sulcation and some return of marte-white differentiation in both the cerebral martine ex and basal ganglia. The ventricular size is also mildly improved. There is no hemorrhage, midline s hift, or herniation. Fluid layering in the paranasal sinuses and nasopharynx is likely due to intubation. IMPRESSION: 1. Mildly improved cerebral edema compared with 09/11/2020. Signer Name: Federico Valderrama MD Signed: 09/16/2020 11:58 AM Workstation Name: [id number]
--- NOTE | 2020-09-16 14:00 | Progress Note ---
Assessment and Plan 65 y/o male with out of hospital cardiac arrest now sedated on ativan for possible seizures. 09/16/2020: Patient remains unresponsive. Unable to have MRI because of his size. Remain on mechanical ventilator current FiO2 30%. Currently on Keppra for seizures. Increasing WBC count was noted. Etiology not clear. No evidence of fever. Worry about sepsis. Will repeat CBC and lactic acid level tomorrow. Also will check chest x-ray. Total critical care time 31-minute 09/15/20: Order MRI brain without contrast. Per surgery this will help to add more in regards to prognosis. Continue Valproic Acid and Keppra for seizure therapy. HD going now per renal. Overall prognosis remains guarded to poor. Please reach out to over the weekend to update her as I am not rounding this weekend, ,my partner will be covering. 09/14/20: Will load with valproic acid and then start to wean Diprovan. Spoke with today, very tearful on the phone. Explained to that Neurosurgery would come and gustabo walker but not a candidate for the other therapies she asked about since his edema is related to anoxic injury. Very very poor prognosis. 09/13/20: Per current neuro available, the neurologist from yesterday will call today. 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 As stated in neuro note, overall prognosis is very poor. Will continue to wean down diprovan to see if patient's seizures have been controlled with current Keppra dosing. Will call once she has spoken to neuro to get her thoughts on the next steps. (trach and peg, vs hospice as well as code status). Very very poor prognosis. 09/12/20: Long discussion with this am. Given recent head CT results, prognosis for full functional recovery is very POOR and neurology agrees. They will see in consult today. I have spoken to about AND and she is going to discuss with the family. The neurologist has stated they will reach out to the today. I am going to attempt to wean the ativan off and then start to wean the diprovan as long as no seizure activity is seen. Patient is now bradycardic, likely secondary to neuro state. I hope that he is not about to herniate. Patient is also like in Neurogenic DI given large urine out put volume. Very very poor prognosis. Continue supportive measures. 09/11/20: Will increase Keppra to 1500 BID given patient size. Continue Diprovan drip. Getting EEG today. HD per renal. Needs neurology consult however if patient is in status, needs to be transferred to an institution that can provide continuous EEG monitoring. Overll prognosis is very guarded to poor. Have not spoken to yet today. 09/10/20: Loaded with keppra and will start on Keppra BID. Needs EEG on therapy as well as OFF. If patient is in status, needs transfer to a location with continuous EEG capabilities. FiO2 has been weaned back down and is now at 60%, sats in the high 90's. HD per renal. Coags improving. Overall prognosis is guarded to poor. Spoke with on phone yesterday. Consult neurology bernardo rrow as not available on the weekend. Suggest checking for antibodies as he may be a candidate for convalsescent plasma. Per the , he was diagnosed with COVID on and spent 6 days inpatient at the [place]. Remains positive now with multisystem organ failure. Explained to that outcome may not be good but need more time to assess. 09/09/20: EEG ordered on yesterday but not done. If done not read. Continue diprovan for now until EEG can be done or interpreted. State Coags but given his oozing from his vascath, will give Vitamin K and FFP. Patient is covid positive so agree with steroids. Not a candidate for remdesivir. Need to check for antibodies, may be a candidate for convalescent plasma. HD per renal. Given improvement in pH will stop bicarb drip. Feed patient. CCT 31 minutes. Subjective Date of service: 09/15/20 Subjective Date of service: 09/16/20 Principal diagnosis: Abnormal LFTs, s/p cardiac arrest, acute kidney injury with ATN Interval history: No change. Patient remains unresponsive on mechanical ventilator. With FiO2 at 30%. Objective Vital Signs - 12hr 09/16/20 09/16/20 09/16/20 02:00 02:11 02:21 Temperature Pulse Rate 66 66 65 Pulse Rate [ From Monitor] Respiratory 30 H 30 H 30 H Rate Blood Pressure 135/65 135/65 133/64 O2 Sat by Pulse 99 100 100 Oximetry 09/16/20 09/16/20 09/16/20 02:30 02:41 02:51 Temperature Pulse Rate 64 65 64 Pulse Rate [ From Monitor] Respiratory 30 H 30 H 30 H Rate Blood Pressure 128/66 128/66 140/66 O2 Sat by Pulse 99 100 100 Oximetry 09/16/20 09/16/20 09/16/20 03:00 03:11 03:20 Temperature 98.7 F Pulse Rate 64 64 Pulse Rate [ From Monitor] Respiratory 30 H 30 H Rate Blood Pressure 142/65 142/65 O2 Sat by Pulse 99 100 Oximetry 09/16/20 09/16/20 09/16/20 03:21 03:31 03:41 Temperature Pulse Rate 63 64 63 Pulse Rate [ From Monitor] Respiratory 30 H 30 H 30 H Rate Blood Pressure 138/68 139/68 139/68 O2 Sat by Pulse 99 99 100 Oximetry 09/16/20 09/16/20 09/16/20 03:51 04:00 04:11 Temperature Pulse Rate 64 63 64 Pulse Rate [ 63 From Monitor] Respiratory 31 H 30 H 30 H Rate Blood Pressure 138/67 148/67 148/67 O2 Sat by Pulse 99 99 100 Oximetry 09/16/20 09/16/20 09/16/20 04:21 04:31 04:36 Temperature Pulse Rate 66 67 66 Pulse Rate [ From Monitor] Respiratory 30 H 27 H Rate Blood Pressure 149/63 165/70 165/75 O2 Sat by Pulse 100 99 100 Oximetry 09/16/20 09/16/20 09/16/20 04:41 04:51 05:01 Temperature Pulse Rate 67 68 Pulse Rate [ From Monitor] Respiratory 27 H 30 H Rate Blood Pressure 165/70 156/74 155/65 O2 Sat by Pulse 100 100 98 Oximetry 09/16/20 09/16/20 09/16/20 05:11 05:21 05:31 Temperature Pulse Rate 75 69 68 Pulse Rate [ From Monitor] Respiratory 30 H 8 L 0 L Rate Blood Pressure 155/65 161/67 143/66 O2 Sat by Pulse 100 99 99 Oximetry 09/16/20 09/16/20 09/16/20 05:41 05:51 06:00 Temperature Pulse Rate 67 66 66 Pulse Rate [ From Monitor] Respiratory 0 L 0 L 7 L Rate Blood Pressure 143/66 135/65 132/66 O2 Sat by Pulse 100 100 100 Oximetry 09/16/20 09/16/20 09/16/20 06:11 06:21 06:31 Temperature Pulse Rate 65 64 65 Pulse Rate [ From Monitor] Respiratory 0 L 0 L 7 L Rate Blood Pressure 132/66 134/64 129/62 O2 Sat by Pulse 100 100 100 Oximetry 09/16/20 09/16/20 09/16/20 06:41 06:51 07:00 Temperature 98.1 F Pulse Rate 64 64 Pulse Rate [ From Monitor] Respiratory 14 7 L Rate Blood Pressure 129/62 136/62 O2 Sat by Pulse 100 100 Oximetry 09/16/20 09/16/20 09/16/20 07:01 07:11 07:21 Temperature Pulse Rate 64 64 64 Pulse Rate [ From Monitor] Respiratory 11 L 0 L 9 L Rate Blood Pressure 135/60 135/60 133/63 O2 Sat by Pulse 99 100 99 Oximetry 09/16/20 09/16/20 09/16/20 07:31 07:41 07:51 Temperature Pulse Rate 65 67 69 Pulse Rate [ From Monitor] Respiratory 30 H 30 H 30 H Rate Blood Pressure 133/59 133/59 135/60 O2 Sat by Pulse 100 99 100 Oximetry 09/16/20 09/16/20 09/16/20 07:56 08:01 08:06 Temperature Pulse Rate 67 67 72 Pulse Rate [ 72 From Monitor] Respiratory 30 H 26 H Rate Blood Pressure 135/60 133/60 O2 Sat by Pulse 100 100 100 Oximetry 09/16/20 09/16/20 09/16/20 08:11 08:21 08:31 Temperature Pulse Rate 88 74 76 Pulse Rate [ From Monitor] Respiratory 25 H 16 20 Rate Blood Pressure 133/60 158/62 171/72 O2 Sat by Pulse 100 100 100 Oximetry 09/16/20 09/16/20 09/16/20 08:41 08:51 09:01 Temperature Pulse Rate 70 69 68 Pulse Rate [ From Monitor] Respiratory 25 H 23 21 Rate Blood Pressure 133/60 137/68 140/64 O2 Sat by Pulse 98 98 98 Oximetry 09/16/20 09/16/20 09/16/20 09:11 09:21 09:30 Temperature Pulse Rate 66 68 65 Pulse Rate [ From Monitor] Respiratory 20 16 16 Rate Blood Pressure 140/64 137/70 140/68 O2 Sat by Pulse 98 99 99 Oximetry 09/16/20 09/16/20 09/16/20 09:41 09:51 10:01 Temperature Pulse Rate 65 65 63 Pulse Rate [ From Monitor] Respiratory 16 14 15 Rate Blood Pressure 140/68 147/70 152/70 O2 Sat by Pulse 99 99 100 Oximetry 09/16/20 09/16/20 09/16/20 10:11 10:21 10:53 Temperature Pulse Rate 66 65 Pulse Rate [ From Monitor] Respiratory 16 14 Rate Blood Pressure 152/70 162/70 169/79 O2 Sat by Pulse 98 99 98 Oximetry 09/16/20 09/16/20 09/16/20 11:01 11:11 11:18 Temperature Pulse Rate 66 66 66 Pulse Rate [ From Monitor] Respiratory 16 20 Rate Blood Pressure 149/73 149/73 157/72 O2 Sat by Pulse 98 98 98 Oximetry 09/16/20 09/16/20 09/16/20 11:21 11:31 11:41 Temperature Pulse Rate 72 68 66 Pulse Rate [ From Monitor] Respiratory 14 13 15 Rate Blood Pressure 157/72 167/69 167/69 O2 Sat by Pulse 99 99 99 Oximetry 09/16/20 09/16/20 09/16/20 11:51 12:00 12:01 Temperature 98.2 F Pulse Rate 66 66 Pulse Rate [ 66 From Monitor] Respiratory 14 30 H 25 H Rate Blood Pressure 158/73 161/70 O2 Sat by Pulse 98 98 98 Oximetry 09/16/20 09/16/20 09/16/20 12:11 12:19 12:21 Temperature 98.2 F Pulse Rate 64 65 Pulse Rate [ From Monitor] Respiratory 17 18 Rate Blood Pressure 158/73 155/74 O2 Sat by Pulse 98 98 Oximetry 09/16/20 09/16/20 09/16/20 12:31 12:41 12:51 Temperature Pulse Rate 65 65 65 Pulse Rate [ From Monitor] Respiratory 30 H 30 H 28 H Rate Blood Pressure 160/69 160/69 160/69 O2 Sat by Pulse 98 98 98 Oximetry 09/16/20 09/16/20 13:01 13:11 Temperature Pulse Rate 66 65 Pulse Rate [ From Monitor] Respiratory 21 30 H Rate Blood Pressure 162/68 162/68 O2 Sat by Pulse 98 98 Oximetry Constitutional: comatose, other (morbidly obese) Eyes: non-icteric ENT: other (orally intubated and sedated) Neck: supple Effort: normal Ascultation: Bilateral: diminished breath sounds Percussion: Bilateral: not dull Cardiovascular: other (bradycardic) Gastrointestinal: soft CBC and BMP: 09/15/20 19:20 09/16/20 09:40 ABG, PT/INR, D-dimer: ABG ABG pH 7.442 (7.320-7.450) 09/14/20 03:54 POC ABG pCO2 42.3 mmHg (32.0-48.0) 09/14/20 03:54 ABG pCO2 33.4 mm Hg 09/11/20 05:40 POC ABG pO2 71.1 mmHg (83-108) L 09/14/20 03:54 ABG pO2 112.1 mm Hg (80.0-90.0) H 09/11/20 05:40 POC ABG HCO3 28.2 09/14/20 03:54 ABG O2 Saturation 98.4 % (95.0-99.0) 09/11/20 05:40 PT/INR, D-dimer PT 16.1 Sec. (12.2-14.9) H 09/12/20 04:00 INR 1.31 (0.87-1.13) H 09/12/20 04:00 D-Dimer 8315.85 ng/mlDDU (0-234) H 09/07/20 14:00 Abnormal lab findings: Abnormal Labs 09/07/20 09/07/20 09/07/20 13:08 14:00 14:00 WBC 15.7 H RBC Hgb 10.2 L Hct 32.5 L MCHC 31 L RDW 17.5 H Lymph % (Auto) Mcdowell % (Auto) Lymph # (Auto) Mcdowell # (Auto) Seg Neutrophils % Seg Neuts % (Manual) 72.0 H Lymphocytes % (Manual) Monocytes % (Manual) 8.0 H Nucleated RBC % Seg Neutrophils # Seg Neutrophils # Man 11.3 H Lymphocytes # (Manual) Monocytes # (Manual) 1.3 H PT INR D-Dimer 8315.85 H ABG pH POC ABG pCO2 POC ABG pO2 ABG pO2 ABG HCO3 ABG Base Excess ABG Hemoglobin ABG Oxyhemoglobin ABG Sodium ABG Potassium ABG Chloride ABG Glucose Carboxyhemoglobin Sodium Potassium Chloride Carbon Dioxide BUN Creatinine Glucose POC Glucose Lactic Acid Calcium Phosphorus Ferritin Total Bilirubin Direct Bilirubin AST ALT Lactate Dehydrogenase Total Creatine Kinase Troponin T Total Protein Albumin Triglycerides Arterial Blood Glucose Arterial Blood Ionized Calcium Urine pH 8.0 H Urine Creatinine Salicylates Acetaminophen Coronavirus (PCR) 09/07/20 09/07/20 09/07/20 14:00 14:00 14:00 WBC RBC Hgb Hct MCHC RDW Lymph % (Auto) Mcdowell % (Auto) Lymph # (Auto) Mcdowell # (Auto) Seg Neutrophils % Seg Neuts % (Manual) Lymphocytes % (Manual) Monocytes % (Manual) Nucleated RBC % Seg Neutrophils # Seg Neutrophils # Man Lymphocytes # (Manual) Monocytes # (Manual) PT INR D-Dimer ABG pH POC ABG pCO2 POC ABG pO2 ABG pO2 ABG HCO3 ABG Base Excess ABG Hemoglobin ABG Oxyhemoglobin ABG Sodium ABG Potassium ABG Chloride ABG Glucose Carboxyhemoglobin Sodium Potassium Chloride Carbon Dioxide BUN Creatinine Glucose POC Glucose Lactic Acid 4.30 H* Calcium Phosphorus Ferritin > 2000.0 H Total Bilirubin Direct Bilirubin AST ALT Lactate Dehydrogenase 882 H Total Creatine Kinase 477 H Troponin T 0.076 H Total Protein Albumin Triglycerides Arterial Blood Glucose Arterial Blood Ionized Calcium Urine pH Urine Creatinine Salicylates Acetaminophen Coronavirus (PCR) 09/07/20 09/07/20 09/07/20 14:00 14:00 14:00 WBC RBC Hgb Hct MCHC RDW Lymph % (Auto) Mcd[place] % (Auto) Lymph # (Auto) Mcd[place] # (Auto) Seg Neutrophils % Seg Neuts % (Manual) Lymphocytes % (Manual) Monocytes % (Manual) Nucleated RBC % Seg Neutrophils # Seg Neutrophils # Man Lymphocytes # (Manual) Monocytes # (Manual) PT INR D-Dimer ABG pH POC ABG pCO2 POC ABG pO2 ABG pO2 ABG HCO3 ABG Base Excess ABG Hemoglobin ABG Oxyhemoglobin ABG Sodium ABG Potassium ABG Chloride ABG Glucose Carboxyhemoglobin Sodium Potassium Chloride Carbon Dioxide BUN Creatinine 1.8 H Glucose POC Glucose Lactic Acid Calcium Phosphorus Ferritin Total Bilirubin Direct Bilirubin AST 310 H ALT 339 H Lactate Dehydrogenase Total Creatine Kinase Troponin T Total Protein Albumin 3.6 L Triglycerides Arterial Blood Glucose Arterial Blood Ionized Calcium Urine pH Urine Creatinine Salicylates < 0.3 L Acetaminophen 5.0 L Coronavirus (PCR) 01/28/21 01/29/21 01/29/21 14:26 04:00 04:17 WBC RBC Hgb Hct MCHC RDW Lymph % (Auto) Mcdowell % (Auto) Lymph # (Auto) Mcdowell # (Auto) Seg Neutrophils % Seg Neuts % (Manual) Lymphocytes % (Manual) Monocytes % (Manual) Nucleated RBC % Seg Neutrophils # Seg Neutrophils # Man Lymphocytes # (Manual) Monocytes # (Manual) PT INR D-Dimer ABG pH 7.037 L 7.095 L POC ABG pCO2 92.4 H 68.0 H POC ABG pO2 130.8 H 43.5 L ABG pO2 ABG HCO3 ABG Base Excess ABG Hemoglobin 11.3 L 10.6 L ABG Oxyhemoglobin 70.8 L ABG Sodium ABG Potassium 7.0 H ABG Chloride 108.0 H ABG Glucose Carboxyhemoglobin 0.3 L Sodium Potassium 8.4 H* D Chloride Carbon Dioxide 17 L D BUN 38 H Creatinine 3.9 H D Glucose POC Glucose Lactic Acid Calcium 7.7 L D Phosphorus Ferritin Total Bilirubin Direct Bilirubin AST ALT Lactate Dehydrogenase Total Creatine Kinase Troponin T Total Protein Albumin Triglycerides Arterial Blood Glucose Arterial Blood Ionized Calcium 4.5 L Urine pH Urine Creatinine Salicylates Acetaminophen Coronavirus (PCR) 09/08/20 09/08/20 09/08/20 05:00 05:25 12:02 WBC RBC Hgb Hct MCHC RDW Lymph % (Auto) Mcdowell % (Auto) Lymph # (Auto) Mcdowell # (Auto) Seg Neutrophils % Seg Neuts % (Manual) Lymphocytes % (Manual) Monocytes % (Manual) Nucleated RBC % Seg Neutrophils # Seg Neutrophils # Man Lymphocytes # (Manual) Monocytes # (Manual) PT INR D-Dimer ABG pH 7.088 L POC ABG pCO2 69.1 H POC ABG pO2 35.2 L ABG pO2 ABG HCO3 ABG Base Excess ABG Hemoglobin 10.9 L ABG Oxyhemoglobin 57.1 L ABG Sodium ABG Potassium 7.0 H ABG Chloride 108.0 H ABG Glucose Carboxyhemoglobin 0.4 L Sodium Potassium 8.1 H* Chloride Carbon Dioxide 17 L BUN 38 H Creatinine 3.7 H Glucose POC Glucose Lactic Acid Calcium 8.0 L Phosphorus 8.00 H Ferritin Total Bilirubin Direct Bilirubin 0.5 H AST 3696 H ALT 3331 H Lactate Dehydrogenase Total Creatine Kinase Troponin T Total Protein Albumin 3.5 L Triglycerides Arterial Blood Glucose Arterial Blood Ionized Calcium 4.4 L Urine pH Urine Creatinine Salicylates Acetaminophen Coronavirus (PCR) 09/08/20 09/08/20 09/08/20 16:31 22:36 Unknown WBC RBC Hgb Hct MCHC RDW Lymph % (Auto) Mcdowell % (Auto) Lymph # (Auto) Mcd[place] # (Auto) Seg Neutrophils % Seg Neuts % (Manual) Lymphocytes % (Manual) Monocytes % (Manual) Nucleated RBC % Seg Neutrophils # Seg Neutrophils # Man Lymphocytes # (Manual) Monocytes # (Manual) PT INR D-Dimer ABG pH POC ABG pCO2 POC ABG pO2 ABG pO2 ABG HCO3 ABG Base Excess ABG Hemoglobin ABG Oxyhemoglobin ABG Sodium ABG Potassium ABG Chloride ABG Glucose Carboxyhemoglobin Sodium Potassium 5.3 H D Chloride Carbon Dioxide BUN Creatinine Glucose POC Glucose 158 H Lactic Acid Calcium Phosphorus Ferritin Total Bilirubin Direct Bilirubin AST ALT Lactate Dehydrogenase Total Creatine Kinase Troponin T Total Protein Albumin Triglycerides Arterial Blood Glucose Arterial Blood Ionized Calcium Urine pH Urine Creatinine Salicylates Acetaminophen Coronavirus (PCR) Positive A 09/08/20 09/08/20 09/08/20 Unknown Unknown Unknown WBC 18.4 H RBC Hgb 10.1 L Hct 32.0 L MCHC RDW 18.2 H Lymph % (Auto) Mcd[place] % (Auto) Lymph # (Auto) [place]cd[place] # (Auto) Seg Neutrophils % Seg Neuts % (Manual) 81.0 H Lymphocytes % (Manual) 2.0 L Monocytes % (Manual) Nucleated RBC % 1.0 H Seg Neutrophils # Seg Neutrophils # Man 14.9 H Lymphocytes # (Manual) 0.4 L Monocytes # (Manual) 1.1 H PT 21.2 H INR 1.83 H D-Dimer ABG pH POC ABG pCO2 POC ABG pO2 ABG pO2 ABG HCO3 ABG Base Excess ABG Hemoglobin ABG Oxyhemoglobin ABG Sodium ABG Potassium ABG Chloride ABG Glucose Carboxyhemoglobin Sodium Potassium Chloride Carbon Dioxide BUN Creatinine Glucose POC Glucose Lactic Acid Calcium Phosphorus Ferritin Total Bilirubin Direct Bilirubin AST ALT Lactate Dehydrogenase Total Creatine Kinase Troponin T Total Protein Albumin Triglycerides Arterial Blood Glucose Arterial Blood Ionized Calcium Urine pH Urine Creatinine 182.4 H Salicylates Acetaminophen Coronavirus (PCR) 09/09/20 09/09/20 09/09/20 03:14 04:20 04:20 WBC 16.3 H RBC 3.12 L Hgb 8.6 L Hct 26.8 L MCHC RDW 18.2 H Lymph % (Auto) 6.3 L Mcdowell % (Auto) 8.8 H Lymph # (Auto) 1.0 L Mcdowell # (Auto) 1.4 H Seg Neutrophils % 84.5 H Seg Neuts % (Manual) Lymphocytes % (Manual) Monocytes % (Manual) Nucleated RBC % Seg Neutrophils # 13.7 H Seg Neutrophils # Man Lymphocytes # (Manual) Monocytes # (Manual) PT INR D-Dimer ABG pH POC ABG pCO2 POC ABG pO2 148.5 H ABG pO2 ABG HCO3 ABG Base Excess ABG Hemoglobin 9.4 L ABG Oxyhemoglobin 98.8 H ABG Sodium 134.8 L ABG Potassium 5.0 H ABG Chloride ABG Glucose 222 H Carboxyhemoglobin 0.1 L Sodium Potassium 5.2 H Chloride Carbon Dioxide BUN 47 H Creatinine 4.3 H Glucose 211 H POC Glucose Lactic Acid Calcium 7.4 L Phosphorus Ferritin Total Bilirubin [place] 44066 H ALT 6206 H Lactate Dehydrogenase Total Creatine Kinase Troponin T Total Protein 5.6 L Albumin 3.0 L Triglycerides Arterial Blood Glucose 222 H Arterial Blood Ionized Calcium 3.8 L Urine pH Urine Creatinine Salicylates Acetaminophen Coronavirus (PCR) 09/09/20 09/09/20 09/09/20 10:00 12:23 18:22 WBC RBC Hgb Hct MCHC RDW Lymph % (Auto) Mcdowell % (Auto) Lymph # (Auto) Mcdowell # (Auto) Seg Neutrophils % Seg Neuts % (Manual) Lymphocytes % (Manual) Monocytes % (Manual) Nucleated RBC % Seg Neutrophils # Seg Neutrophils # Man Lymphocytes # (Manual) Monocytes # (Manual) PT 21.7 H INR 1.90 H D-Dimer ABG pH POC ABG pCO2 POC ABG pO2 ABG pO2 ABG HCO3 ABG Base Excess ABG Hemoglobin ABG Oxyhemoglobin ABG Sodium ABG Potassium ABG Chloride ABG Glucose Carboxyhemoglobin Sodium Potassium Chloride Carbon Dioxide BUN Creatinine Glucose POC Glucose 216 H 211 H Lactic Acid Calcium Phosphorus Ferritin Total Bilirubin Direct Bilirubin AST ALT Lactate Dehydrogenase Total Creatine Kinase Troponin T Total Protein Albumin Triglycerides Arterial Blood Glucose Arterial Blood Ionized Calcium Urine pH Urine Creatinine Salicylates Acetaminophen Coronavirus (PCR) 09/10/20 09/10/20 09/10/20 04:00 04:05 04:05 WBC 15.0 H RBC 3.06 L Hgb 8.6 L Hct 25.8 L MCHC RDW 18.0 H Lymph % (Auto) Mcd[place] % (Auto) Lymph # (Auto) [place]cd[place] # (Auto) Seg Neutrophils % Seg Neuts % (Manual) 86.0 H Lymphocytes % (Manual) 6.0 L Monocytes % (Manual) 8.0 H Nucleated RBC % Seg Neutrophils # Seg Neutrophils # Man 12.9 H Lymphocytes # (Manual) 0.9 L Monocytes # (Manual) 1.2 H PT 18.4 H INR 1.54 H D-Dimer ABG pH POC ABG pCO2 POC ABG pO2 ABG pO2 ABG HCO3 ABG Base Excess ABG Hemoglobin ABG Oxyhemoglobin ABG Sodium ABG Potassium ABG Chloride ABG Glucose Carboxyhemoglobin Sodium 134 L Potassium Chloride 93.7 L Carbon Dioxide BUN 46 H Creatinine 3.6 H Glucose 275 H POC Glucose Lactic Acid Calcium 7.7 L Phosphorus Ferritin Total Bilirubin 1.30 H Direct Bilirubin AST 5899 H ALT 6440 H Lactate Dehydrogenase Total Creatine Kinase Troponin T Total Protein 5.9 L Albumin 3.3 L Triglycerides Arterial Blood Glucose Arterial Blood Ionized Calcium Urine pH Urine Creatinine Salicylates Acetaminophen Coronavirus (PCR) 09/10/20 09/10/20 09/10/20 04:35 12:06 17:42 WBC RBC Hgb Hct MCHC RDW Lymph % (Auto) Mcd[place] % (Auto) Lymph # (Auto) [place]cd[place] # (Auto) Seg Neutrophils % Seg Neuts % (Manual) Lymphocytes % (Manual) Monocytes % (Manual) Nucleated RBC % Seg Neutrophils # Seg Neutrophils # Man Lymphocytes # (Manual) Monocytes # (Manual) PT INR D-Dimer ABG pH 7.464 H POC ABG pCO2 POC ABG pO2 ABG pO2 ABG HCO3 ABG Base Excess ABG Hemoglobin 9.9 L ABG Oxyhemoglobin ABG Sodium 131.6 L ABG Potassium ABG Chloride 97.0 L ABG Glucose 281 H Carboxyhemoglobin 0.1 L Sodium Potassium Chloride Carbon Dioxide BUN Creatinine Glucose POC Glucose 298 H 340 H Lactic Acid Calcium Phosphorus Ferritin Total Bilirubin Direct Bilirubin AST ALT Lactate Dehydrogenase Total Creatine Kinase Troponin T Total Protein Albumin Triglycerides Arterial Blood Glucose 281 H Arterial Blood Ionized Calcium 3.9 L Urine pH Urine Creatinine Salicylates Acetaminophen Coronavirus (PCR) 09/10/20 09/11/20 09/11/20 23:07 04:44 05:17 WBC RBC Hgb Hct MCHC RDW Lymph % (Auto) [place]cd[place] % (Auto) Lymph # (Auto) [place]cd[place] # (Auto) Seg Neutrophils % Seg Neuts % (Manual) Lymphocytes % (Manual) Monocytes % (Manual) Nucleated RBC % Seg Neutrophils # Seg Neutrophils # Man Lymphocytes # (Manual) Monocytes # (Manual) PT 16.9 H INR 1.39 H D-Dimer ABG pH POC ABG pCO2 POC ABG pO2 ABG pO2 ABG HCO3 ABG Base Excess ABG Hemoglobin ABG Oxyhemoglobin ABG Sodium ABG Potassium ABG Chloride ABG Glucose Carboxyhemoglobin Sodium Potassium Chloride Carbon Dioxide BUN Creatinine Glucose POC Glucose 367 H 416 H Lactic Acid Calcium Phosphorus Ferritin Total Bilirubin Direct Bilirubin AST ALT Lactate Dehydrogenase Total Creatine Kinase Troponin T Total Protein Albumin Triglycerides Arterial Blood Glucose Arterial Blood Ionized Calcium Urine pH Urine Creatinine Salicylates Acetaminophen Coronavirus (PCR) 09/11/20 09/11/20 09/11/20 05:40 12:01 17:50 WBC RBC Hgb Hct MCHC RDW Lymph % (Auto) [place]cd[place] % (Auto) Lymph # (Auto) [place]cd[place] # (Auto) Seg Neutrophils % Seg Neuts % (Manual) Lymphocytes % (Manual) Monocytes % (Manual) Nucleated RBC % Seg Neutrophils # Seg Neutrophils # Man Lymphocytes # (Manual) Monocytes # (Manual) PT INR D-Dimer ABG pH 7.543 H POC ABG pCO2 POC ABG pO2 ABG pO2 112.1 H ABG HCO3 28.1 H ABG Base Excess 5.4 H ABG Hemoglobin 8.4 L ABG Oxyhemoglobin ABG Sodium ABG Potassium ABG Chloride ABG Glucose Carboxyhemoglobin Sodium Potassium Chloride Carbon Dioxide BUN Creatinine Glucose POC Glucose 418 H 404 H Lactic Acid Calcium Phosphorus Ferritin Total Bilirubin Direct Bilirubin AST ALT Lactate Dehydrogenase Total Creatine Kinase Troponin T Total Protein Albumin Triglycerides Arterial Blood Glucose Arterial Blood Ionized Calcium Urine pH Urine Creatinine Salicylates Acetaminophen Coronavirus (PCR) 09/11/20 09/11/20 09/12/20 23:10 23:43 03:15 WBC RBC Hgb Hct MCHC RDW Lymph % (Auto) Mcd[place] % (Auto) Lymph # (Auto) [place]cd[place] # (Auto) Seg Neutrophils % Seg Neuts % (Manual) Lymphocytes % (Manual) Monocytes % (Manual) Nucleated RBC % Seg Neutrophils # Seg Neutrophils # Man Lymphocytes # (Manual) Monocytes # (Manual) PT INR D-Dimer ABG pH POC ABG pCO2 POC ABG pO2 ABG pO2 ABG HCO3 ABG Base Excess ABG Hemoglobin ABG Oxyhemoglobin ABG Sodium ABG Potassium ABG Chloride ABG Glucose Carboxyhemoglobin Sodium 135 L Potassium Chloride 92.3 L Carbon Dioxide BUN 62 H Creatinine 3.7 H Glucose 406 H POC Glucose 372 H 359 H Lactic Acid Calcium Phosphorus Ferritin Total Bilirubin Direct Bilirubin AST 687 H ALT 3701 H Lactate Dehydrogenase Total Creatine Kinase Troponin T Total Protein 5.8 L Albumin 3.1 L Triglycerides Arterial Blood Glucose Arterial Blood Ionized Calcium Urine pH Urine Creatinine Salicylates Acetaminophen Coronavirus (PCR) 09/12/20 09/12/20 09/12/20 03:18 04:00 04:00 WBC 13.7 H RBC 3.30 L Hgb 9.3 L Hct 27.6 L MCHC RDW 17.5 H Lymph % (Auto) [place]cd[place] % (Auto) Lymph # (Auto) [place]cd[place] # (Auto) Seg Neutrophils % Seg Neuts % (Manual) 76.0 H Lymphocytes % (Manual) 11.0 L Monocytes % (Manual) 13.0 H Nucleated RBC % Seg Neutrophils # Seg Neutrophils # Man 10.4 H Lymphocytes # (Manual) Monocytes # (Manual) 1.8 H PT 16.1 H INR 1.31 H D-Dimer ABG pH 7.558 H POC ABG pCO2 POC ABG pO2 74.7 L ABG pO2 ABG HCO3 ABG Base Excess ABG Hemoglobin 9.7 L ABG Oxyhemoglobin ABG Sodium 132.4 L ABG Potassium ABG Chloride 95.0 L ABG Glucose 437 H Carboxyhemoglobin Sodium Potassium Chloride Carbon Dioxide BUN Creatinine Glucose POC Glucose Lactic Acid Calcium Phosphorus Ferritin Total Bilirubin Direct Bilirubin AST ALT Lactate Dehydrogenase Total Creatine Kinase Troponin T Total Protein Albumin Triglycerides Arterial Blood Glucose 437 H Arterial Blood Ionized Calcium 4.3 L Urine pH Urine Creatinine Salicylates Acetaminophen Coronavirus (PCR) 09/12/20 09/12/20 09/12/20 04:21 05:20 06:37 WBC RBC Hgb Hct MCHC RDW Lymph % (Auto) Mcdowell % (Auto) Lymph # (Auto) Mcdowell # (Auto) Seg Neutrophils % Seg Neuts % (Manual) Lymphocytes % (Manual) Monocytes % (Manual) Nucleated RBC % Seg Neutrophils # Seg Neutrophils # Man Lymphocytes # (Manual) Monocytes # (Manual) PT INR D-Dimer ABG pH POC ABG pCO2 POC ABG pO2 ABG pO2 ABG HCO3 ABG Base Excess ABG Hemoglobin ABG Oxyhemoglobin ABG Sodium ABG Potassium ABG Chloride ABG Glucose Carboxyhemoglobin Sodium Potassium Chloride Carbon Dioxide BUN Creatinine Glucose POC Glucose 417 H 397 H 370 H Lactic Acid Calcium Phosphorus Ferritin Total Bilirubin Direct Bilirubin AST ALT Lactate Dehydrogenase Total Creatine Kinase Troponin T Total Protein Albumin Triglycerides Arterial Blood Glucose Arterial Blood Ionized Calcium Urine pH Urine Creatinine Salicylates Acetaminophen Coronavirus (PCR) 09/12/20 09/12/20 09/12/20 11:56 17:14 21:52 WBC RBC Hgb Hct MCHC RDW Lymph % (Auto) Mcdowell % (Auto) Lymph # (Auto) Mcdowell # (Auto) Seg Neutrophils % Seg Neuts % (Manual) Lymphocytes % (Manual) Monocytes % (Manual) Nucleated RBC % Seg Neutrophils # Seg Neutrophils # Man Lymphocytes # (Manual) Monocytes # (Manual) PT INR D-Dimer ABG pH POC ABG pCO2 POC ABG pO2 ABG pO2 ABG HCO3 ABG Base Excess ABG Hemoglobin ABG Oxyhemoglobin ABG Sodium ABG Potassium ABG Chloride ABG Glucose Carboxyhemoglobin Sodium Potassium Chloride Carbon Dioxide BUN Creatinine Glucose POC Glucose 341 H 325 H 285 H Lactic Acid Calcium Phosphorus Ferritin Total Bilirubin Direct Bilirubin AST ALT Lactate Dehydrogenase Total Creatine Kinase Troponin T Total Protein Albumin Triglycerides Arterial Blood Glucose Arterial Blood Ionized Calcium Urine pH Urine Creatinine Salicylates Acetaminophen Coronavirus (PCR) 09/12/20 09/12/20 09/12/20 23:39 Unknown Unknown WBC RBC Hgb Hct MCHC RDW Lymph % (Auto) Mcdowell % (Auto) Lymph # (Auto) Mcdowell # (Auto) Seg Neutrophils % Seg Neuts % (Manual) Lymphocytes % (Manual) Monocytes % (Manual) Nucleated RBC % Seg Neutrophils # Seg Neutrophils # Man Lymphocytes # (Manual) Monocytes # (Manual) PT INR D-Dimer ABG pH POC ABG pCO2 POC ABG pO2 ABG pO2 ABG HCO3 ABG Base Excess ABG Hemoglobin ABG Oxyhemoglobin ABG Sodium ABG Potassium ABG Chloride ABG Glucose Carboxyhemoglobin Sodium 135 L Potassium Chloride 92.2 L Carbon Dioxide BUN 65 H Creatinine 3.5 H Glucose 418 H POC Glucose 338 H Lactic Acid Calcium Phosphorus Ferritin Total Bilirubin Direct Bilirubin AST 553 H ALT 3453 H Lactate Dehydrogenase Total Creatine Kinase Troponin T Total Protein 5.9 L Albumin 3.0 L Triglycerides 220 H Arterial Blood Glucose Arterial Blood Ionized Calcium Urine pH Urine Creatinine Salicylates Acetaminophen Coronavirus (PCR) 09/13/20 09/13/20 09/13/20 04:47 05:24 10:50 WBC RBC Hgb Hct MCHC RDW Lymph % (Auto) Mcdowell % (Auto) Lymph # (Auto) Mcdowell # (Auto) Seg Neutrophils % Seg Neuts % (Manual) Lymphocytes % (Manual) Monocytes % (Manual) Nucleated RBC % Seg Neutrophils # Seg Neutrophils # Man Lymphocytes # (Manual) Monocytes # (Manual) PT INR D-Dimer ABG pH 7.571 H POC ABG pCO2 POC ABG pO2 69.0 L ABG pO2 ABG HCO3 ABG Base Excess ABG Hemoglobin 10.1 L ABG Oxyhemoglobin 93.2 L ABG Sodium 134.0 L ABG Potassium ABG Chloride ABG Glucose 365 H Carboxyhemoglobin 0.4 L Sodium Potassium Chloride 96.6 L Carbon Dioxide 32 H BUN 76 H Creatinine 3.1 H Glucose 395 H POC Glucose 329 H Lactic Acid Calcium Phosphorus Ferritin Total Bilirubin Direct Bilirubin AST ALT Lactate Dehydrogenase Total Creatine Kinase Troponin T Total Protein Albumin Triglycerides Arterial Blood Glucose 365 H Arterial Blood Ionized Calcium Urine pH Urine Creatinine Salicylates Acetaminophen Coronavirus (PCR) 09/13/20 09/13/20 09/13/20 11:39 17:48 23:35 WBC RBC Hgb Hct MCHC RDW Lymph % (Auto) Mcdowell % (Auto) Lymph # (Auto) Mcdowell # (Auto) Seg Neutrophils % Seg Neuts % (Manual) Lymphocytes % (Manual) Monocytes % (Manual) Nucleated RBC % Seg Neutrophils # Seg Neutrophils # Man Lymphocytes # (Manual) Monocytes # (Manual) PT INR D-Dimer ABG pH POC ABG pCO2 POC ABG pO2 ABG pO2 ABG HCO3 ABG Base Excess ABG Hemoglobin ABG Oxyhemoglobin ABG Sodium ABG Potassium ABG Chloride ABG Glucose Carboxyhemoglobin Sodium Potassium Chloride Carbon Dioxide BUN Creatinine Glucose POC Glucose 344 H 286 H 223 H Lactic Acid Calcium Phosphorus Ferritin Total Bilirubin Direct Bilirubin AST ALT Lactate Dehydrogenase Total Creatine Kinase Troponin T Total Protein Albumin Triglycerides Arterial Blood Glucose Arterial Blood Ionized Calcium Urine pH Urine Creatinine Salicylates Acetaminophen Coronavirus (PCR) 09/14/20 09/14/20 09/14/20 03:54 05:34 10:27 WBC RBC Hgb Hct MCHC RDW Lymph % (Auto) Mcdowell % (Auto) Lymph # (Auto) Mcdowell # (Auto) Seg Neutrophils % Seg Neuts % (Manual) Lymphocytes % (Manual) Monocytes % (Manual) Nucleated RBC % Seg Neutrophils # Seg Neutrophils # Man Lymphocytes # (Manual) Monocytes # (Manual) PT INR D-Dimer ABG pH POC ABG pCO2 POC ABG pO2 71.1 L ABG pO2 ABG HCO3 ABG Base Excess ABG Hemoglobin 10.3 L ABG Oxyhemoglobin ABG Sodium 135.2 L ABG Potassium ABG Chloride ABG Glucose 281 H Carboxyhemoglobin Sodium Potassium Chloride 96.6 L Carbon Dioxide BUN 100 H Creatinine 3.9 H Glucose 286 H POC Glucose 252 H Lactic Acid Calcium Phosphorus Ferritin Total Bilirubin Direct Bilirubin AST 145 H ALT 1400 H Lactate Dehydrogenase Total Creatine Kinase Troponin T Total Protein 5.6 L Albumin 2.9 L Triglycerides Arterial Blood Glucose 281 H Arterial Blood Ionized Calcium Urine pH Urine Creatinine Salicylates Acetaminophen Coronavirus (PCR) 09/14/20 09/14/20 09/14/20 11:38 17:52 23:07 WBC RBC Hgb Hct MCHC RDW Lymph % (Auto) Mcdowell % (Auto) Lymph # (Auto) Mcdowell # (Auto) Seg Neutrophils % Seg Neuts % (Manual) Lymphocytes % (Manual) Monocytes % (Manual) Nucleated RBC % Seg Neutrophils # Seg Neutrophils # Man Lymphocytes # (Manual) Monocytes # (Manual) PT INR D-Dimer ABG pH POC ABG pCO2 POC ABG pO2 ABG pO2 ABG HCO3 ABG Base Excess ABG Hemoglobin ABG Oxyhemoglobin ABG Sodium ABG Potassium ABG Chloride ABG Glucose Carboxyhemoglobin Sodium Potassium Chloride Carbon Dioxide BUN Creatinine Glucose POC Glucose 247 H 247 H 256 H Lactic Acid Calcium Phosphorus Ferritin Total Bilirubin Direct Bilirubin AST ALT Lactate Dehydrogenase Total Creatine Kinase Troponin T Total Protein Albumin Triglycerides Arterial Blood Glucose Arterial Blood Ionized Calcium Urine pH Urine Creatinine Salicylates Acetaminophen Coronavirus (PCR) 09/15/20 09/15/20 09/15/20 04:54 11:24 17:48 WBC RBC Hgb Hct MCHC RDW Lymph % (Auto) Mcdowell % (Auto) Lymph # (Auto) Mcdowell # (Auto) Seg Neutrophils % Seg Neuts % (Manual) Lymphocytes % (Manual) Monocytes % (Manual) Nucleated RBC % Seg Neutrophils # Seg Neutrophils # Man Lymphocytes # (Manual) Monocytes # (Manual) PT INR D-Dimer ABG pH POC ABG pCO2 POC ABG pO2 ABG pO2 ABG HCO3 ABG Base Excess ABG Hemoglobin ABG Oxyhemoglobin ABG Sodium ABG Potassium ABG Chloride ABG Glucose Carboxyhemoglobin Sodium Potassium Chloride Carbon Dioxide BUN Creatinine Glucose POC Glucose 271 H 228 H 254 H Lactic Acid Calcium Phosphorus Ferritin Total Bilirubin Direct Bilirubin AST ALT Lactate Dehydrogenase Total Creatine Kinase Troponin T Total Protein Albumin Triglycerides Arterial Blood Glucose Arterial Blood Ionized Calcium Urine pH Urine Creatinine Salicylates Acetaminophen Coronavirus (PCR) 09/15/20 09/15/20 09/15/20 19:20 19:20 23:13 WBC 27.3 H RBC 3.16 L Hgb 8.8 L Hct 27.0 L MCHC RDW 19.7 H Lymph % (Auto) Mcdowell % (Auto) Lymph # (Auto) Mcdowell # (Auto) Seg Neutrophils % Seg Neuts % (Manual) 81.0 H Lymphocytes % (Manual) 9.0 L Monocytes % (Manual) 10.0 H Nucleated RBC % Seg Neutrophils # Seg Neutrophils # Man 22.1 H Lymphocytes # (Manual) Monocytes # (Manual) 2.7 H PT INR D-Dimer ABG pH POC ABG pCO2 POC ABG pO2 ABG pO2 ABG HCO3 ABG Base Excess ABG Hemoglobin ABG Oxyhemoglobin ABG Sodium ABG Potassium ABG Chloride ABG Glucose Carboxyhemoglobin Sodium Potassium Chloride Carbon Dioxide BUN 68 H Creatinine 2.8 H Glucose 288 H POC Glucose 259 H Lactic Acid Calcium Phosphorus Ferritin Total Bilirubin Direct Bilirubin AST ALT Lactate Dehydrogenase Total Creatine Kinase Troponin T Total Protein Albumin Triglycerides Arterial Blood Glucose Arterial Blood Ionized Calcium Urine pH Urine Creatinine Salicylates Acetaminophen Coronavirus (PCR) 09/16/20 09/16/20 05:27 09:40 WBC RBC Hgb Hct MCHC RDW Lymph % (Auto) Mcdowell % (Auto) Lymph # (Auto) Mcdowell # (Auto) Seg Neutrophils % Seg Neuts % (Manual) Lymphocytes % (Manual) Monocytes % (Manual) Nucleated RBC % Seg Neutrophils # Seg Neutrophils # Man Lymphocytes # (Manual) Monocytes # (Manual) PT INR D-Dimer ABG pH POC ABG pCO2 POC ABG pO2 ABG pO2 ABG HCO3 ABG Base Excess ABG Hemoglobin ABG Oxyhemoglobin ABG Sodium ABG Potassium ABG Chloride ABG Glucose Carboxyhemoglobin Sodium Potassium Chloride Carbon Dioxide 31 H BUN 77 H Creatinine 2.9 H Glucose 250 H POC Glucose 275 H Lactic Acid Calcium Phosphorus Ferritin Total Bilirubin Direct Bilirubin AST ALT Lactate Dehydrogenase Total Creatine Kinase Troponin T Total Protein Albumin Triglycerides Arterial Blood Glucose Arterial Blood Ionized Calcium Urine pH Urine Creatinine Salicylates Acetaminophen Coronavirus (PCR)
--- NOTE | 2020-09-16 20:11 | Progress Note ---
Assessment and Plan Impression: * Nonoliguric RYAN secondary to ATN * Severe hyperkalemia - resolved * COVID 19 PNA * s/p OOH cardiac arrest * Acute hypoxic respiratory failure * Seizure activity * Anemia Plan: * Patient is s/p emergent HD on Friday (hyperK) and Friday - 09/08 * S/p HD yesterday, hold today * Please check labs daily * Strict I/O * Keep MAP > 65 * Vent management per CCM * Steroids per primary team/ID * Dose medications for renal function * Avoid potential nephrotoxins * Prognosis is guarded Subjective Date of service: 09/16/20 Principal diagnosis: Abnormal LFTs, s/p cardiac arrest, acute kidney injury with ATN Interval history: Remains intubated Tolerated dialysis without complications yesterday Patient followed for his renal issues Nursing, interdisciplinary and consult notes were reviewed Vitals, input and output, medications and labs were reviewed Objective - Exam Narrative Exam: Deferred for PPE conservation and to prevent spread of infection - Vital Signs Vital signs: Vital Signs - 12hr 09/16/20 09/16/20 09/16/20 08:11 08:21 08:31 Temperature Pulse Rate 88 74 76 Pulse Rate [ From Monitor] Respiratory 25 H 16 20 Rate Blood Pressure 133/60 158/62 171/72 O2 Sat by Pulse 100 100 100 Oximetry 09/16/20 09/16/20 09/16/20 08:41 08:51 09:01 Temperature Pulse Rate 70 69 68 Pulse Rate [ From Monitor] Respiratory 25 H 23 21 Rate Blood Pressure 133/60 137/68 140/64 O2 Sat by Pulse 98 98 98 Oximetry 09/16/20 09/16/20 09/16/20 09:11 09:21 09:30 Temperature Pulse Rate 66 68 65 Pulse Rate [ From Monitor] Respiratory 20 16 16 Rate Blood Pressure 140/64 137/70 140/68 O2 Sat by Pulse 98 99 99 Oximetry 09/16/20 09/16/20 09/16/20 09:41 09:51 10:01 Temperature Pulse Rate 65 65 63 Pulse Rate [ From Monitor] Respiratory 16 14 15 Rate Blood Pressure 140/68 147/70 152/70 O2 Sat by Pulse 99 99 100 Oximetry 09/16/20 09/16/20 09/16/20 10:11 10:21 10:53 Temperature Pulse Rate 66 65 Pulse Rate [ From Monitor] Respiratory 16 14 Rate Blood Pressure 152/70 162/70 169/79 O2 Sat by Pulse 98 99 98 Oximetry 09/16/20 09/16/20 09/16/20 11:01 11:11 11:18 Temperature Pulse Rate 66 66 66 Pulse Rate [ From Monitor] Respiratory 16 20 Rate Blood Pressure 149/73 149/73 157/72 O2 Sat by Pulse 98 98 98 Oximetry 09/16/20 09/16/20 09/16/20 11:21 11:31 11:41 Temperature Pulse Rate 72 68 66 Pulse Rate [ From Monitor] Respiratory 14 13 15 Rate Blood Pressure 157/72 167/69 167/69 O2 Sat by Pulse 99 99 99 Oximetry 09/16/20 09/16/20 09/16/20 11:51 12:00 12:01 Temperature 98.2 F Pulse Rate 66 66 66 Pulse Rate [ 66 From Monitor] Respiratory 14 30 H 25 H Rate Blood Pressure 158/73 161/70 O2 Sat by Pulse 98 98 98 Oximetry 09/16/20 09/16/20 09/16/20 12:11 12:19 12:21 Temperature 98.2 F Pulse Rate 64 65 Pulse Rate [ From Monitor] Respiratory 17 18 Rate Blood Pressure 158/73 155/74 O2 Sat by Pulse 98 98 Oximetry 09/16/20 09/16/20 09/16/20 12:31 12:41 12:51 Temperature Pulse Rate 65 65 65 Pulse Rate [ From Monitor] Respiratory 30 H 30 H 28 H Rate Blood Pressure 160/69 160/69 160/69 O2 Sat by Pulse 98 98 98 Oximetry 09/16/20 09/16/20 09/16/20 13:01 13:11 13:21 Temperature Pulse Rate 66 65 66 Pulse Rate [ From Monitor] Respiratory 21 30 H 30 H Rate Blood Pressure 162/68 162/68 147/74 O2 Sat by Pulse 98 98 99 Oximetry 09/16/20 09/16/20 09/16/20 13:31 13:41 13:51 Temperature Pulse Rate 65 64 65 Pulse Rate [ From Monitor] Respiratory 22 16 22 Rate Blood Pressure 153/71 162/68 148/70 O2 Sat by Pulse 99 99 99 Oximetry 09/16/20 09/16/20 09/16/20 14:01 14:11 14:21 Temperature Pulse Rate 64 63 64 Pulse Rate [ From Monitor] Respiratory 21 22 24 Rate Blood Pressure 151/70 151/70 140/65 O2 Sat by Pulse 98 98 97 Oximetry 09/16/20 09/16/20 09/16/20 14:31 14:41 14:50 Temperature Pulse Rate 64 63 63 Pulse Rate [ From Monitor] Respiratory 21 22 26 H Rate Blood Pressure 150/68 150/68 147/67 O2 Sat by Pulse 99 98 99 Oximetry 09/16/20 09/16/20 09/16/20 15:00 15:10 15:20 Temperature Pulse Rate 64 63 64 Pulse Rate [ From Monitor] Respiratory 21 27 H 19 Rate Blood Pressure 147/67 147/66 O2 Sat by Pulse 98 98 98 Oximetry 09/16/20 09/16/20 09/16/20 15:30 15:40 15:50 Temperature Pulse Rate 64 63 66 Pulse Rate [ From Monitor] Respiratory 16 19 19 Rate Blood Pressure 147/66 151/67 143/68 O2 Sat by Pulse 99 99 99 Oximetry 09/16/20 09/16/20 09/16/20 16:00 16:01 16:10 Temperature 98.5 F Pulse Rate 66 62 62 Pulse Rate [ 66 From Monitor] Respiratory 25 H 16 Rate Blood Pressure 143/68 147/66 147/66 O2 Sat by Pulse 99 99 100 Oximetry 09/16/20 09/16/20 09/16/20 16:20 16:30 16:40 Temperature Pulse Rate 68 67 66 Pulse Rate [ From Monitor] Respiratory 27 H 27 H 30 H Rate Blood Pressure 169/78 169/78 142/68 O2 Sat by Pulse 99 99 99 Oximetry 09/16/20 09/16/20 09/16/20 16:50 17:00 17:10 Temperature Pulse Rate 65 65 71 Pulse Rate [ From Monitor] Respiratory 30 H 30 H 16 Rate Blood Pressure 139/61 139/61 138/66 O2 Sat by Pulse 99 99 100 Oximetry 09/16/20 09/16/20 09/16/20 17:20 17:30 17:40 Temperature Pulse Rate 73 70 67 Pulse Rate [ From Monitor] Respiratory 31 H 23 26 H Rate Blood Pressure 149/111 149/111 138/61 O2 Sat by Pulse 97 98 99 Oximetry 09/16/20 09/16/20 09/16/20 17:50 18:00 18:10 Temperature Pulse Rate 66 65 81 Pulse Rate [ From Monitor] Respiratory 24 19 20 Rate Blood Pressure 137/66 137/66 137/68 O2 Sat by Pulse 99 99 100 Oximetry 09/16/20 09/16/20 09/16/20 18:20 18:30 18:40 Temperature Pulse Rate 66 65 65 Pulse Rate [ From Monitor] Respiratory 19 16 13 Rate Blood Pressure 151/70 151/70 132/66 O2 Sat by Pulse 99 99 99 Oximetry 09/16/20 09/16/20 09/16/20 18:50 19:00 19:10 Temperature Pulse Rate 65 64 64 Pulse Rate [ From Monitor] Respiratory 14 13 14 Rate Blood Pressure 127/63 127/63 130/62 O2 Sat by Pulse 99 100 100 Oximetry 09/16/20 09/16/20 09/16/20 19:20 19:30 19:40 Temperature Pulse Rate 64 64 63 Pulse Rate [ From Monitor] Respiratory 15 14 14 Rate Blood Pressure 127/51 127/51 124/53 O2 Sat by Pulse 100 100 100 Oximetry 09/16/20 09/16/20 19:50 20:00 Temperature 98.3 F Pulse Rate 63 63 Pulse Rate [ From Monitor] Respiratory 14 14 Rate Blood Pressure 138/61 138/61 O2 Sat by Pulse 100 100 Oximetry - Lab 09/15/20 19:20 09/16/20 09:40 Most recent lab results ABG pH 7.442 (7.320-7.450) 09/14/20 03:54 ABG pCO2 33.4 mm Hg 09/11/20 05:40 ABG pO2 112.1 mm Hg (80.0-90.0) H 09/11/20 05:40 ABG HCO3 28.1 mmol/L (20.0-26.0) H 09/11/20 05:40 ABG O2 Saturation 98.4 % (95.0-99.0) 09/11/20 05:40 Calcium 8.8 mg/dL (8.4-10.2) 09/16/20 09:40 Phosphorus 8.00 mg/dL (2.5-4.5) H 09/08/20 12:02 Magnesium 1.80 mg/dL (1.7-2.3) 09/08/20 12:02 Urine Creatinine 182.4 mg/dL (0.1-20.0) H 09/08/20 Unknown Urine Sodium 40 mmol/L 09/08/20 Unknown Medications & Allergies - Medications Allergies/Adverse Reactions: Allergies Unable to Assess Allergy (Verified 09/07/20 13:43) intubated Home Medications: Home Medications Medication Instructions Recorded Confirmed Last Taken Type Albuterol Sulfate 60 mcg IH PRN 09/11/20 09/11/20 Unknown History Cholecalciferol (Vitamin D3) 25 tab PO DAILY 09/11/20 09/11/20 Unknown History Cozaar 25 tab PO DAILY 09/11/20 09/11/20 Unknown History HumaLOG 14 unit SQ AC 09/11/20 09/11/20 Unknown History Hydralazine HCl 50 tab PO TID 09/11/20 09/11/20 Unknown History Isosorbide Dinitrate 30 mg PO DAILY 09/11/20 09/11/20 Unknown History Lantus VIAL 54 units SQ HS 09/11/20 09/11/20 Unknown History Lasix 20 tab PO DAILY 09/11/20 09/11/20 Unknown History Nifedipine 30 tab PO DAILY 09/11/20 09/11/20 Unknown History Active Medications: Generic Name Dose Route Start Last Admin Trade Name Freq PRN Reason Stop Dose Admin Acetaminophen 400 mg 09/10/20 20:50 09/14/20 23:38 Acetaminophen 325 Mg/10.15 Ml Oral Liqd Unit Dose PO 400 mg Q4HR PRN Administration Non Cardiac Pain or Temp>100.5 Lipase/Protease/Amylase 1 each 09/09/20 09:40 Lipase 10,500/Protease 25,000/Amylase 43,750 (Units) Dr Cap FEEDTUBE PRN PRN For Clogged Feeding Tube Hydrophilic Ointment 1 applic 09/07/20 13:08 Lip Therapy Vaseline TP Q2HR PRN Dry Lips Norepinephrine 4 mg in 250 mls @ 7.5 mls/hr 09/08/20 01:30 09/14/20 23:38 Levophed Drip 4 Mg/Ns 250 Ml IV 0 mcg/min TITR TAYLOR 0 mls/hr Titration Protocol 2 MCG/MIN Lorazepam 100 mg/ Sodium 100 mls @ 1 mls/hr 09/08/20 04:00 09/12/20 17:22 Chloride/ Miscellaneous IV 0 mg/hr Information TITR TAYLOR 0 mls/hr Titration Protocol 1 MG/HR Propofol 1,000 mg in 100 mls @ 4.995 mls/hr 09/08/20 20:00 02/05/21 07:00 Diprivan 10 Mg/Ml IV 0 mcg/kg/min TITR TAYLOR 0 mls/hr Titration Protocol 5 MCG/KG/MIN Sodium Chloride 100 mls @ 999 mls/hr 09/09/20 13:36 Nacl 0.9% IV JAYJAY PRN Hypotension Levetiracetam 1,500 mg/ 115 mls @ 400 mls/hr 09/11/20 10:00 09/16/20 09:55 Dextrose IV 400 mls/hr BID TAYLOR Administration Valproate Sodium 1,000 mg/ 110 mls @ 100 mls/hr 09/14/20 22:00 09/16/20 09:55 Sodium Chloride IV 100 mls/hr Q12HR TAYOLR Administration Insulin Glargine 30 units 09/14/20 22:00 09/16/20 09:55 Insulin Glargine 100 Units/Ml SUB-Q 30 units BID TAYLOR Administration Insulin Human Lispro 0 unit 09/12/20 12:00 09/16/20 17:47 Insulin Lispro 100 Unit/Ml SUB-Q 3 unit Q6HR TAYLOR Administration Protocol Lansoprazole 30 mg 09/11/20 11:00 09/16/20 09:56 Lansoprazole 30 Mg Solutab FEEDTUBE 30 mg BID TAYLOR Administration Lorazepam 2 mg 09/08/20 00:14 09/14/20 13:36 Lorazepam 2 Mg/Ml Vial IV 2 mg Q4H PRN Administration Seizures Multi-Ingred Cream/Lotion/Oil/Oint 1 applic 09/07/20 13:08 Mineral Oil/Petrolatum, White Ophth Oint 3.5 Gm OU Q4HR PRN Dry Eye(s) Multivitamins 5 ml 09/09/20 12:00 09/16/20 09:56 Multivitamins 5 Ml Oral Liquid PO 5 ml QDAY TAYLOR Administration Ondansetron HCl 4 mg 09/07/20 17:55 Ondansetron 4 Mg/2 Ml Inj IV Q8H PRN Nausea And Vomiting Senna/Docusate Sodium 2 tab 09/13/20 11:00 09/16/20 09:56 Sennosides/Docusate Sodium 8.6/50 Mg Tab PO 2 tab BID TAYLOR Administration Simple Syrup 15 ml 09/09/20 09:40 Simple Syrup 15 Ml FEEDTUBE PRN PRN Hypoglycemia Simple Syrup 30 ml 09/09/20 09:40 Simple Syrup 15 Ml FEEDTUBE PRN PRN Hypoglycemia Sodium Bicarbonate 325 mg 09/09/20 09:40 Sodium Bicarbonate 325 Mg Tab FEEDTUBE PRN PRN For Clogged Feeding Tube Sodium Chloride 10 ml 09/07/20 22:00 09/16/20 09:56 Sodium Chloride 0.9% 10 Ml Flush Syringe IV 10 ml BID TAYLOR Administration Sodium Chloride 10 ml 09/07/20 17:55 Sodium Chloride 0.9% 10 Ml Flush Syringe IV PRN PRN LINE FLUSH
[2020-09-17] MEDS: INSULIN LISPRO 100 UNIT/ML SUB-Q SCH ×4 (00:05→18:16)
--- NOTE | 2020-09-17 03:22 | XRay Report ---
CHEST 1 VIEW 09/17/2020 2:14 AM INDICATION / CLINICAL INFORMATION: Resp failure. COMPARISON: 09/16/20 FINDINGS: SUPPORT DEVICES: Stable, satisfactory device positioning. HEART / MEDIASTINUM: Stable. LUNGS / PLEURA: Mild bibasilar densities are unchanged. No pneumothorax. ADDITIONAL FINDINGS: No significant additional findings. IMPRESSION: 1. No significant change. Signer Name: Marcella Parnell MD Signed: 09/17/2020 3:18 AM Workstation Name: [id number]
[2020-09-17 05:23] LABS: Basophils # (Auto) 0.1 K/mm3 (0.0-0.1); Basophils % (Auto) 0.3 % (0.0-1.8); Eosinophils # (Auto) 0.1 K/mm3 (0.0-0.4); Eosinophils % (Auto) 0.4 % (0.0-4.3); Hematocrit 26.3 % (35.5-45.6); Hemoglobin 8.6 gm/dl (11.8-15.2); Lymphocytes # (Auto) 1.7 K/mm3 (1.2-5.4); Lymphocytes % (Auto) 8.7 % (13.4-35.0); Mean Corpuscular HGB Conc 33 % (32-34); Mean Corpuscular Volume 87 fl (84-94); Monocytes # (Auto) 2.7 K/mm3 (0.0-0.8); Monocytes % (Auto) 13.7 % (0.0-7.3); Platelet Count 169 K/mm3 (140-440); Red Blood Count 3.03 M/mm3 (3.65-5.03); Red Cell Distribution Width 19.4 % (13.2-15.2)
[2020-09-17 05:43] LABS: Albumin 2.8 g/dL (3.9-5); Calcium 9.2 mg/dL (8.4-10.2)
--- NOTE | 2020-09-17 10:07 | Progress Note ---
Assessment and Plan Assessment and plan: S/p cardiopulmonary arrest Toxic metabolic encephalopathy +/-anoxic injury Acute hypoxic respiratory failure Acute kidney injury Seizure disorder Hyperkalemia COVID-19 pneumonia Sepsis Transaminitis Morbid obesity. 09/15/2020. MRI brain for further evaluation. Continue AEDs of valproic acid and Keppra. Continue hemodialysis per nephrology recommendations. Overall prognosis remains guarded and poor. 09/16/2020. ID recommends continue to monitor patient off of antibiotics. Fever most likely of central etiology. Patient with questionable seizures versus myoclonus from anoxic brain injury. Patient unable to undergo MRI due to body habitus. Continue AEDs per neurology recommendations. Inflammatory markers elevated. Patient was recently hospitalized for COVID-19 pneumonia at the [facility] prior to being hospitalized here. Patient not a candidate for remdesivir due to hepatic and renal failure. Viral hepatitis panel negative. Overall prognosis extremely poor. 09/17/2020. Fevers have resolved over the past 48 hours. Continue to monitor off antibiotics per ID recommendations. Patient with questionable seizures versus myoclonus from anoxic brain injury. Patient unable to undergo MRI due to body habitus. EEG is nonspecific but given CT of head findings consistent with anoxic encephalopathy, brain injury. Continue AEDs per neurology recommendations. Inflammatory markers elevated. Patient was recently hospitalized for COVID-19 pneumonia at the [facility] to being hospitalized here. Patient not a candidate for remdesivir due to hepatic and renal failure. Viral hepatitis panel negative. Patient is s/p emergent HD on Friday (hyperK) and Friday - 09/08. Patient also S/p HD 09/15. Continue hemodialysis per nephrology recommendations. Patient currently on AC/PRVC mode ventilation with rate of 30, tidal volume 475, FiO2 30% and PEEP of 6. As stated in neuro note, overall prognosis is very poor. The high probability of a clinically significant, sudden or life threatening deterioration of the [cardiac, respiratory and neurological] system(s) required my full and direct attention, intervention and personal management. The aggregate critical care time was [34] minutes. This time is in addition to time spent performing reported procedures but includes the following: [x] Data Review and interpretation [x] Patient assessment and monitoring of vital signs [x] Documentation [x] Medication orders and management History Interval history: 65 y/o male with out of hospital cardiac arrest now sedated on ativan for p ossible seizures. Hospitalist Physical - Constitutional Vitals: Temp Pulse Resp BP Pulse Ox 98.4 F 64 18 131/62 99 09/17/20 08:00 09/17/20 09:00 09/17/20 09:00 09/17/20 09:00 09/17/20 09:00 General appearance: Present: other (Intubated sedated) - EENT Eyes: Present: PERRL, EOM intact ENT: hearing intact, clear oral mucosa, dentition normal - Neck Neck: Present: supple, normal ROM - Respiratory Respiratory effort: normal Respiratory: bilateral: CTA - Cardiovascular Rhythm: regular Heart Sounds: Present: S1 & S2. Absent: gallop, rub - Extremities Extremities: no ischemia, No edema, Full ROM - Abdominal General gastrointestinal: soft, non-tender, non-distended, normal bowel sounds - Integumentary Integumentary: Present: clear, warm, dry - Neurologic Neurologic: CNII-XII intact, moves all extremities HEART Score - HEART Score Troponin: Troponin T 0.076 ng/mL (0.00-0.029) H 09/07/20 14:00 Results - Labs CBC & Chem 7: 09/17/20 04:00 09/17/20 04:00 Labs: Laboratory Last Values WBC 19.5 K/mm3 (4.5-11.0) H 09/17/20 04:00 RBC 3.03 M/mm3 (3.65-5.03) L 09/17/20 04:00 Hgb 8.6 gm/dl (11.8-15.2) L 09/17/20 04:00 Hct 26.3 % (35.5-45.6) L 09/17/20 04:00 MCV 87 fl (84-94) 09/17/20 04:00 MCH 28 pg (28-32) 09/17/20 04:00 MCHC 33 % (32-34) 09/17/20 04:00 RDW 19.4 % (13.2-15.2) H 09/17/20 04:00 Plt Count 169 K/mm3 (140-440) 09/17/20 04:00 Lymph % (Auto) 8.7 % (13.4-35.0) L 09/17/20 04:00 Power % (Auto) 13.7 % (0.0-7.3) H 09/17/20 04:00 Eos % (Auto) 0.4 % (0.0-4.3) 09/17/20 04:00 Baso % (Auto) 0.3 % (0.0-1.8) 09/17/20 04:00 Lymph # (Auto) 1.7 K/mm3 (1.2-5.4) 09/17/20 04:00 Power # (Auto) 2.7 K/mm3 (0.0-0.8) H 09/17/20 04:00 Eos # (Auto) 0.1 K/mm3 (0.0-0.4) 09/17/20 04:00 Baso # (Auto) 0.1 K/mm3 (0.0-0.1) 09/17/20 04:00 Add Manual Diff Complete 09/15/20 19:20 Total Counted 100 09/15/20 19:20 Seg Neutrophils % 76.9 % (40.0-70.0) H 09/17/20 04:00 Seg Neuts % (Manual) 81.0 % (40.0-70.0) H 09/15/20 19:20 Band Neutrophils % 9.0 % 09/08/20 Unknown Lymphocytes % (Manual) 9.0 % (13.4-35.0) L 09/15/20 19:20 Monocytes % (Manual) 10.0 % (0.0-7.3) H 09/15/20 19:20 Eosinophils % (Manual) 2.0 % (0.0-4.3) 09/07/20 14:00 Metamyelocytes % 2.0 % 09/08/20 Unknown Nucleated RBC % Not Reportable 09/15/20 19:20 Seg Neutrophils # 15.0 K/mm3 (1.8-7.7) H 09/17/20 04:00 Seg Neutrophils # Man 22.1 K/mm3 (1.8-7.7) H 09/15/20 19:20 Band Neutrophils # 0.0 K/mm3 09/15/20 19:20 Lymphocytes # (Manual) 2.5 K/mm3 (1.2-5.4) 09/15/20 19:20 Abs React Lymphs (Man) 0.0 K/mm3 09/15/20 19:20 Monocytes # (Manual) 2.7 K/mm3 (0.0-0.8) H 09/15/20 19:20 Eosinophils # (Manual) 0.0 K/mm3 (0.0-0.4) 09/15/20 19:20 Basophils # (Manual) 0.0 K/mm3 (0.0-0.1) 09/15/20 19:20 Metamyelocytes # 0.0 K/mm3 09/15/20 19:20 Myelocytes # 0.0 K/mm3 09/15/20 19:20 Promyelocytes # 0.0 K/mm3 09/15/20 19:20 Blast Cells # 0.0 K/mm3 09/15/20 19:20 WBC Morphology Not Reportable 09/15/20 19:20 Hypersegmented Neuts Not Reportable 09/15/20 19:20 Hyposegmented Neuts Not Reportable 09/15/20 19:20 Hypogranular Neuts Not Reportable 09/15/20 19:20 Smudge Cells Not Reportable 09/15/20 19:20 Toxic Granulation Not Reportable 09/15/20 19:20 Toxic Vacuolation Not Reportable 09/15/20 19:20 Dohle Bodies Not Reportable 09/15/20 19:20 Pelger-Huet Anomaly Not Reportable 09/15/20 19:20 Justus Rods Not Reportable 09/15/20 19:20 Platelet Estimate Not Reportable 09/15/20 19:20 Clumped Platelets Not Reportable 09/15/20 19:20 Plt Clumps, EDTA Not Reportable 09/15/20 19:20 Large Platelets Not Reportable 09/15/20 19:20 Giant Platelets Not Reportable 09/15/20 19:20 Platelet Satelliting Not Reportable 09/15/20 19:20 Plt Morphology Comment Not Reportable 09/15/20 19:20 RBC Morphology Not Reportable 09/15/20 19:20 Dimorphic RBCs Not Reportable 09/15/20 19:20 Polychromasia Not Reportable 09/15/20 19:20 Hypochromasia Few 09/15/20 19:20 Poikilocytosis Not Reportable 09/15/20 19:20 Anisocytosis Few 09/15/20 19:20 Microcytosis Few 09/15/20 19:20 Macrocytosis Not Reportable 09/15/20 19:20 Spherocytes Not Reportable 09/15/20 19:20 Pappenheimer Bodies Not Reportable 09/15/20 19:20 Sickle Cells Not Reportable 09/15/20 19:20 Target Cells Not Reportable 09/15/20 19:20 Tear Drop Cells Few 09/15/20 19:20 Ovalocytes Not Reportable 09/15/20 19:20 Helmet Cells Not Reportable 09/15/20 19:20 [place] Bodies Not Reportable 09/15/20 19:20 [place] Rings Not Reportable 09/15/20 19:20 [place] Cells Not Reportable 09/15/20 19:20 Bite Cells Not Reportable 09/15/20 19:20 Crenated Cell Not Reportable 09/15/20 19:20 Elliptocytes Not Reportable 09/15/20 19:20 Acanthocytes (Spur) Not Reportable 09/15/20 19:20 Rouleaux Not Reportable 09/15/20 19:20 Hemoglobin C Crystals Not Reportable 09/15/20 19:20 Schistocytes Few 09/15/20 19:20 Malaria parasites Not Reportable 09/15/20 19:20 [place] Bodies Not Reportable 09/15/20 19:20 Hem Pathologist Commnt No 09/15/20 19:20 PT 16.1 Sec. (12.2-14.9) H 09/12/20 04:00 INR 1.31 (0.87-1.13) H 09/12/20 04:00 APTT 32.4 Sec. (24.2-36.6) 09/09/20 10:00 D-Dimer 8315.85 ng/mlDDU (0-234) H 09/07/20 14:00 ABG pH 7.442 (7.320-7.450) 09/14/20 03:54 POC ABG pCO2 42.3 mmHg (32.0-48.0) 09/14/20 03:54 ABG pCO2 33.4 mm Hg 09/11/20 05:40 POC ABG pO2 71.1 mmHg (83-108) L 09/14/20 03:54 ABG pO2 112.1 mm Hg (80.0-90.0) H 09/11/20 05:40 POC ABG HCO3 28.2 09/14/20 03:54 ABG HCO3 28.1 mmol/L (20.0-26.0) H 09/11/20 05:40 ABG O2 Saturation 98.4 % (95.0-99.0) 09/11/20 05:40 ABG O2 Content 11.6 (0.0-44) 09/11/20 05:40 POC ABG Base Excess 3.7 09/14/20 03:54 ABG Base Excess 5.4 mmol/L (-2.0-3.0) H 09/11/20 05:40 ABG Hemoglobin 10.3 (12.0-17.5) L 09/14/20 03:54 ABG Oxyhemoglobin 93.2 (94-98) L 09/13/20 04:47 ABG Carboxyhemoglobin 1.2 % (0.0-5.0) 09/11/20 05:40 ABG Methemoglobin 0.3 (0.0-1.5) 09/13/20 04:47 ABG Sodium 135.2 mmol/L (136.0-145.0) L 09/14/20 03:54 ABG Potassium 3.8 mmol/L (3.40-4.50) 09/14/20 03:54 ABG Chloride 98.0 mmol/L (98-107) 09/14/20 03:54 ABG Glucose 281 mg/dL (65-95) H 09/14/20 03:54 Oxyhemoglobin 96.8 % (95.0-99.0) 09/11/20 05:40 Carboxyhemoglobin 0.4 (0.5-1.5) L 09/13/20 04:47 FiO2 30 09/14/20 03:54 Sodium 146 mmol/L (137-145) H 09/17/20 04:00 Potassium 3.1 mmol/L (3.6-5.0) L 09/17/20 04:00 Chloride 103.4 mmol/L (98-107) 09/17/20 04:00 Carbon Dioxide 28 mmol/L (22-30) 09/17/20 04:00 Anion Gap 18 mmol/L 09/17/20 04:00 BUN 79 mg/dL (9-20) H 09/17/20 04:00 Creatinine 2.6 mg/dL (0.8-1.3) H 09/17/20 04:00 Estimated GFR 30 ml/min 09/17/20 04:00 BUN/Creatinine Ratio 30 % 09/17/20 04:00 Glucose 122 mg/dL (75-100) H 09/17/20 04:00 POC Glucose 116 mg/dL (70-105) H 09/17/20 05:09 Lactic Acid 2.10 mmol/L (0.7-2.0) H* 09/17/20 00:01 Calcium 9.2 mg/dL (8.4-10.2) 09/17/20 04:00 Phosphorus 8.00 mg/dL (2.5-4.5) H 09/08/20 12:02 Magnesium 1.80 mg/dL (1.7-2.3) 09/08/20 12:02 Ferritin > 2000.0 ng/mL (30.0-300.0) H 09/07/20 14:00 Total Bilirubin 0.90 mg/dL (0.1-1.2) 09/17/20 04:00 Direct Bilirubin 0.5 mg/dL (0-0.2) H 09/08/20 05:00 Indirect Bilirubin 0.5 mg/dL 09/08/20 05:00 AST 64 units/L (5-40) H 09/17/20 04:00 ALT 516 units/L (7-56) H 09/17/20 04:00 Alkaline Phosphatase 87 units/L (35-129) 09/17/20 04:00 Ammonia 50.0 umol/L (25-60) 09/07/20 14:00 Lactate Dehydrogenase 882 units/L (91-180) H 09/07/20 14:00 Total Creatine Kinase 477 units/L (55-170) H 09/07/20 14:00 Troponin T 0.076 ng/mL (0.00-0.029) H 09/07/20 14:00 C-Reactive Protein 1.10 mg/dL (0.00-1.30) 09/07/20 14:00 Total Protein 5.7 g/dL (6.3-8.2) L 09/17/20 04:00 Albumin 2.8 g/dL (3.9-5) L 09/17/20 04:00 Albumin/Globulin Ratio 1.0 % 09/17/20 04:00 Triglycerides 220 mg/dL (2-149) H 09/12/20 Unknown Procalcitonin 0.09 ng/mL (<0.15) 09/07/20 14:00 TSH 2.290 mlU/mL (0.270-4.200) 09/07/20 14:00 Arterial Blood Glucose 281 mg/dL (65-95) H 09/14/20 03:54 Arterial Blood Ionized Calcium 4.6 mg/dL (4.6-5.3) 09/14/20 03:54 Urine Color Straw (Yellow) 09/07/20 13:08 Urine Turbidity Slightly-cloudy (Clear) 09/07/20 13:08 Urine pH 8.0 (5.0-7.0) H 09/07/20 13:08 Ur Specific [place] 1.006 (1.003-1.030) 09/07/20 13:08 Urine Protein 100 mg/dl mg/dL (Negative) 09/07/20 13:08 Urine Glucose (UA) Neg mg/dL (Negative) 09/07/20 13:08 Urine Ketones Neg mg/dL (Negative) 09/07/20 13:08 Urine Blood Neg (Negative) 09/07/20 13:08 Urine Nitrite Neg (Negative) 09/07/20 13:08 Urine Bilirubin Neg (Negative) 09/07/20 13:08 Urine Urobilinogen < 2.0 mg/dL (<2.0) 09/07/20 13:08 Ur Leukocyte Esterase Neg (Negative) 09/07/20 13:08 Urine WBC (Auto) 4.0 /HPF (0.0-6.0) 09/07/20 13:08 Urine RBC (Auto) 18.0 /HPF (0.0-6.0) 09/07/20 13:08 U Epithel Cells (Auto) 1.0 /HPF (0-13.0) 09/07/20 13:08 Urine Mucus Few /HPF 09/07/20 13:08 Urine Sperm 3+ /HPF (INSULATION ESTIMATOR) 09/07/20 13:08 Urine Creatinine 182.4 mg/dL (0.1-20.0) H 09/08/20 Unknown Urine Sodium 40 mmol/L 09/08/20 Unknown Salicylates < 0.3 mg/dL (2.8-20.0) L 09/07/20 14:00 Acetaminophen 5.0 ug/mL (10.0-30.0) L 09/07/20 14:00 Plasma/Serum Alcohol < 0.01 % (0-0.07) 09/07/20 14:00 Coronavirus (PCR) Positive (Negative) A 09/08/20 Unknown Hepatitis A IgM Ab Non-reactive (NonReactive) 09/07/20 14:00 Hep Bs Antigen Non-reactive (Negative) 09/07/20 14:00 Hep B Core IgM Ab Non-reactive (NonReactive) 09/07/20 14:00 Hepatitis C Antibody Non-reactive (NonReactive) 09/07/20 14:00 HIV 1&2 Antibody Rapid Non react (Non React) 09/07/20 14:34 HIV P24 Antigen Non react (Non React) 09/07/20 14:34 Blood Type O POSITIVE 09/09/20 10:00 Antibody Screen Negative 09/07/20 14:00 Mae/IV: Voiding Method Indwelling Catheter IV Catheter Type [Right Triple Lumen Cath Femoral] IV Catheter Type [Left Peripheral IV Antecubital] IV Catheter Type [Left Hand] Peripheral IV IV Catheter Type [Right Peripheral IV Antecubital] Active Medications - Current Medications Current Medications: Generic Name Dose Route Start Last Admin Trade Name Freq PRN Reason Stop Dose Admin Acetaminophen 400 mg 09/10/20 20:50 09/14/20 23:38 Acetaminophen 325 Mg/10.15 Ml Oral Liqd Unit Dose PO 400 mg Q4HR PRN Administration Non Cardiac Pain or Temp>100.5 Lipase/Protease/Amylase 1 each 09/09/20 09:40 Lipase 10,500/Protease 25,000/Amylase 43,750 (Units) Dr Cap FEEDTUBE PRN PRN For Clogged Feeding Tube Hydrophilic Ointment 1 applic 09/07/20 13:08 Lip Therapy Vaseline TP Q2HR PRN Dry Lips Norepinephrine 4 mg in 250 mls @ 7.5 mls/hr 09/08/20 01:30 09/14/20 23:38 Levophed Drip 4 Mg/Ns 250 Ml IV 0 mcg/min TITR TAYLOR 0 mls/hr Titration Protocol 2 MCG/MIN Lorazepam 100 mg/ Sodium 100 mls @ 1 mls/hr 09/08/20 04:00 09/12/20 17:22 Chloride/ Miscellaneous IV 0 mg/hr Information TITR TAYLOR 0 mls/hr Titration Protocol 1 MG/HR Propofol 1,000 mg in 100 mls @ 4.995 mls/hr 09/08/20 20:00 09/15/20 07:00 Diprivan 10 Mg/Ml IV 0 mcg/kg/min TITR TAYLOR 0 mls/hr Titration Protocol 5 MCG/KG/MIN Sodium Chloride 100 mls @ 999 mls/hr 09/09/20 13:36 Nacl 0.9% IV JAYJAY PRN Hypotension Levetiracetam 1,500 mg/ 115 mls @ 400 mls/hr 09/11/20 10:00 09/16/20 21:49 Dextrose IV 400 mls/hr BID TAYLOR Administration Valproate Sodium 1,000 mg/ 110 mls @ 100 mls/hr 09/14/20 22:00 09/16/20 21:49 Sodium Chloride IV 100 mls/hr Q12HR TAYLOR Administration Insulin Glargine 30 units 09/14/20 22:00 09/16/20 21:42 Insulin Glargine 100 Units/Ml SUB-Q 30 units BID TAYLOR Administration Insulin Human Lispro 0 unit 09/12/20 12:00 09/17/20 05:50 Insulin Lispro 100 Unit/Ml SUB-Q Not Given Q6HR [facility] Protocol Lansoprazole 30 mg 09/11/20 11:00 09/16/20 21:43 Lansoprazole 30 Mg Solutab FEEDTUBE 30 mg BID TAYLOR Administration Lorazepam 2 mg 09/08/20 00:14 09/14/20 13:36 Lorazepam 2 Mg/Ml Vial IV 2 mg Q4H PRN Administration Seizures Multi-Ingred Cream/Lotion/Oil/Oint 1 applic 09/07/20 13:08 Mineral Oil/Petrolatum, White Ophth Oint 3.5 Gm OU Q4HR PRN Dry Eye(s) Multivitamins 5 ml 09/09/20 12:00 09/16/20 09:56 Multivitamins 5 Ml Oral Liquid PO 5 ml QDAY TAYLOR Administration Ondansetron HCl 4 mg 09/07/20 17:55 Ondansetron 4 Mg/2 Ml Inj IV Q8H PRN Nausea And Vomiting Senna/Docusate Sodium 2 tab 09/13/20 11:00 09/16/20 21:51 Sennosides/Docusate Sodium 8.6/50 Mg Tab PO Not Given BID TAYLOR Simple Syrup 15 ml 09/09/20 09:40 Simple Syrup 15 Ml FEEDTUBE PRN PRN Hypoglycemia Simple Syrup 30 ml 09/09/20 09:40 Simple Syrup 15 Ml FEEDTUBE PRN PRN Hypoglycemia Sodium Bicarbonate 325 mg 09/09/20 09:40 Sodium Bicarbonate 325 Mg Tab FEEDTUBE PRN PRN For Clogged Feeding Tube Sodium Chloride 10 ml 09/07/20 22:00 09/17/20 00:21 Sodium Chloride 0.9% 10 Ml Flush Syringe IV Not Given BID TAYLOR Sodium Chloride 10 ml 09/07/20 17:55 Sodium Chloride 0.9% 10 Ml Flush Syringe IV PRN PRN LINE FLUSH Nutrition/Malnutrition Assess - Dietary Evaluation Nutrition/Malnutrition Findings: Nutrition Notes Start: 09/08/20 12:01 Freq: Status: Active Protocol: Document 09/15/20 10:36 EN (Rec: 09/15/20 10:43 EN [id number]) Co-Sign 09/15/20 10:36 Nutrition Notes Initial or Follow up Reassessment Current Diagnosis Acute Kidney Injury Other Pertinent Diagnosis acute renal failure, cardiac arrest, possible seizures, COVID(+), AMS Current Diet Nepro 1.8 at 45 ml/hr Labs/Tests POC BG 271 Pertinent Medications Lantus Humalog Height 6 ft Weight 166.5 kg [place] Body Weight (kg) 80.90 BMI 49.8 Weight Status Morbidly Obese Subjective/Other Information F/u for TF tolerance and BM. Pt has not yet had a BM. Per RN, TF infusing at goal and tolerated well Percent of energy/protein needs met: 100%/43% Burn Absent Trauma Absent GI Symptoms Constipation Current % PO Negligible Minimum of two criteria No physical signs of malnutrition #1 Nutrition Diagnosis Inadequate oral intake Diagnosis Progress(for reassessment Continues documentation) Is patient on ventilator? Yes Is Patient Ambulatory and/or Out of Bed No REE-([facility]-confined to bed) 2995.752 Kcal/Kg value to use for calculation 12 Approximate Energy Requirements Using 1998 kcal/Kg Calculation Used for Recommendations Kcal/kg Additional Notes PRO needs: >202g (> 2.5g/kg IBW 80.9kg) Fluid needs: 1 mL/kcal or per MD Nutrition Intervention Change Diet Order: TF Nutrition Support: Nepro 1.8 at 45 mL/hr Flush 200 mL q4h Kcal 1,944 Protein (gm) 87 Fluid (mL) 785 Goal #1 Meet at least 100% of energy needs and meet protein needs as best as possible Anticipated Discharge Needs: Unable to determine Follow-Up By: 09/19/20 Additional Comments F/u for TF tolerance and BM
--- NOTE | 2020-09-17 10:14 | Progress Note ---
Assessment and Plan Cultures: Blood culture 09/07/2020 no growth SARS CoV2 PCR positive 09/07/2020 urine culture: No growth HIV, hepatitis panel: Negative Assessment: 65 years old male with unknown medical history, morbidly obese, brought to the ED by EMS on 09/07/2020 secondary to passing out, found in out of hospital cardiac arrest status post resuscitation, intubated in the field: #[id number] cardiac arrest/shock #Bilateral pneumonia secondary to COVID-19 infection. Inflammatory markers elevated. D-dimer was 8315. apparently, patient was recently hospitalized [facility] for COVID-19 prior to admission here. Was not a candidate for remdesivir due to hepatic and renal failure #Acute hypoxic respiratory failure: on the vent, minimal settings. #Acute renal failure: Creatinine elevated. Likely secondary to cardiac arrest/COVID-19 infection #Shock liver, transaminitis: Viral hepatitis panel negative. #Acute Encephalopathy: Initial GCS 3, noted myoclonic jerking.? Anoxic brain injury. Appreciate neurology evaluation. Recs: -Monitor off antibiotics Poor prognosis Alison Briceno MD Infectious Diseases [employer] [facility] M [phone] O [phone] Subjective Date of service: 09/17/20 Principal diagnosis: Abnormal LFTs, s/p cardiac arrest, acute kidney injury with ATN Interval history: Patient remains intubated, FiO2 30, PEEP of 6, no fever for 3 days. No acute events overnight per nursing staff. Objective - Exam Narrative Exam: Physical exam deferred to minimize COVID-19 transmission during pandemic. - Constitutional Vitals: Vital Signs Temp Pulse Resp BP Pulse Ox 98.4 F 61 30 H 134/63 100 09/17/20 08:00 09/17/20 10:00 09/17/20 10:00 09/17/20 10:00 09/17/20 10:00 Temperature -Last 24 Hours Temperature 98.4 F Temperature 98.4 F Temperature 98.9 F Temperature 98.8 F Temperature 98.3 F Temperature 98.5 F Temperature 98.2 F Temperature 98.2 F - Labs CBC & Chem 7: 09/17/20 04:00 09/17/20 04:00 Labs: Abnormal lab results 09/16/20 09/16/20 09/16/20 Range/Units 09:40 11:48 17:40 WBC (4.5-11.0) K/mm3 RBC (3.65-5.03) M/mm3 Hgb (11.8-15.2) gm/dl Hct (35.5-45.6) % RDW (13.2-15.2) % Lymph % (Auto) (13.4-35.0) % [place] % (Auto) (0.0-7.3) % [place] # (Auto) (0.0-0.8) K/mm3 Seg Neutrophils % (40.0-70.0) % Seg Neutrophils # (1.8-7.7) K/mm3 Sodium (137-145) mmol/L Potassium (3.6-5.0) mmol/L Carbon Dioxide 31 H (22-30) mmol/L BUN 77 H (9-20) mg/dL Creatinine 2.9 H (0.8-1.3) mg/dL Glucose 250 H (75-100) mg/dL POC Glucose 234 H 172 H (70-105) mg/dL Lactic Acid (0.7-2.0) mmol/L AST (5-40) units/L ALT (7-56) units/L Total Protein (6.3-8.2) g/dL Albumin (3.9-5) g/dL 09/16/20 09/17/20 09/17/20 Range/Units 23:23 00:01 04:00 WBC (4.5-11.0) K/mm3 RBC (3.65-5.03) M/mm3 Hgb (11.8-15.2) gm/dl Hct (35.5-45.6) % RDW (13.2-15.2) % Lymph % (Auto) (13.4-35.0) % [place] % (Auto) (0.0-7.3) % [place] # (Auto) (0.0-0.8) K/mm3 Seg Neutrophils % (40.0-70.0) % Seg Neutrophils # (1.8-7.7) K/mm3 Sodium 146 H (137-145) mmol/L Potassium 3.1 L (3.6-5.0) mmol/L Carbon Dioxide (22-30) mmol/L BUN 79 H (9-20) mg/dL Creatinine 2.6 H (0.8-1.3) mg/dL Glucose 122 H (75-100) mg/dL POC Glucose 161 H (70-105) mg/dL Lactic Acid 2.10 H* (0.7-2.0) mmol/L AST 64 H (5-40) units/L ALT 516 H (7-56) units/L Total Protein 5.7 L (6.3-8.2) g/dL Albumin 2.8 L (3.9-5) g/dL 09/17/20 09/17/20 Range/Units 04:00 05:09 WBC 19.5 H (4.5-11.0) K/mm3 RBC 3.03 L (3.65-5.03) M/mm3 Hgb 8.6 L (11.8-15.2) gm/dl Hct 26.3 L (35.5-45.6) % RDW 19.4 H (13.2-15.2) % Lymph % (Auto) 8.7 L (13.4-35.0) % [place] % (Auto) 13.7 H (0.0-7.3) % [place] # (Auto) 2.7 H (0.0-0.8) K/mm3 Seg Neutrophils % 76.9 H (40.0-70.0) % Seg Neutrophils # 15.0 H (1.8-7.7) K/mm3 Sodium (137-145) mmol/L Potassium (3.6-5.0) mmol/L Carbon Dioxide (22-30) mmol/L BUN (9-20) mg/dL Creatinine (0.8-1.3) mg/dL Glucose (75-100) mg/dL POC Glucose 116 H (70-105) mg/dL Lactic Acid (0.7-2.0) mmol/L AST (5-40) units/L ALT (7-56) units/L Total Protein (6.3-8.2) g/dL Albumin (3.9-5) g/dL
[2020-09-17] MEDS: VALPROATE SODIUM 1,000 MG in SODIUM CHLORIDE 0.9% 100 ML IV SCH ×2 (10:25→21:51)
[2020-09-17] MEDS: SENNOSIDES/DOCUSATE SODIUM 8.6/50 MG TAB PO SCH ×2 (10:25→21:51)
[2020-09-17] MEDS: LANSOPRAZOLE 30 MG SOLUTAB FEEDTUBE SCH ×2 (10:25→21:51)
[2020-09-17] MEDS: levETIRAcetam 1,500 MG in DEXTROSE 5% IN WATER 100 ML IV SCH ×2 (10:25→21:51)
[2020-09-17] MEDS: INSULIN GLARGINE 100 UNITS/ML SUB-Q SCH ×3 (10:25→21:52)
[2020-09-17] MEDS: MULTIVITAMINS 5 ML ORAL LIQUID PO SCH (10:28)
--- NOTE | 2020-09-17 11:58 | Progress Note ---
Assessment and Plan 65 y/o male with out of hospital cardiac arrest now sedated on ativan for possible seizures. 09/17/2020: Patient remains unresponsive on mechanical ventilator currently on FiO2 of 30%. Afebrile no change in his condition. WBC count has declined. Lactic acid levels are slightly elevated. Patient chest x-ray is unremarkable. Will check procalcitonin to see if patient has infection. Currently off antibiotics. Total critical care time 31-minute 09/16/2020: Patient remains unresponsive. Unable to have MRI because of his size. Remain on mechanical ventilator current FiO2 30%. Currently on Keppra for rebel valentin. Increasing WBC count was noted. Etiology not clear. No evidence of fever. Worry about sepsis. Will repeat CBC and lactic acid level tomorrow. Also will check chest x-ray. Total critical care time 31-minute 09/15/20: Order MRI brain without contrast. Per surgery this will help to add m ore in regards to prognosis. Continue Valproic Acid and Keppra for seizure therapy. HD going now per renal. Overall prognosis remains guarded to poor. Please reach out to over the weekend to update her as I am not rounding this weekend, ,my partner will be covering. 09/14/20: Will load with valproic acid and then start to wean Diprovan. Spoke with today, very tearful on the phone. Explained to that Neurosurgery would come and gustabo walker but not a candidate for the other therapies she asked about since his edema is related to anoxic injury. Very very poor prognosis. 09/13/20: Per current neuro available, the neurologist from yesterday will call today. EEG is nonspecific but given CT of head findings consistent with anoxic encephalopathy, brain injury. As stated in neuro note, overall prognosis is very poor. Will continue to wean down diprovan to see if patient's seizures have been controlled with current Keppra dosing. Will call once she has spoken to neuro to get her thoughts on the next steps. (trach and peg, vs hospice as well as code status). Very very poor prognosis. 09/12/20: Long discussion with this am. Given recent head CT results, prognosis for full functional recovery is very POOR and neurology agrees. They will see in consult today. I have spoken to about AND and she is going to discuss with the family. The neurologist has stated they will reach out to the today. I am going to attempt to wean the ativan off and then start to wean the diprovan as long as no seizure activity is seen. Patient is now turner ycardic, likely secondary to neuro state. I hope that he is not about to herniate. Patient is also like in Neurogenic DI given large urine out put volume. Very very poor prognosis. Continue supportive measures. 09/11/20: Will increase Keppra to 1500 BID given patient size. Continue Diprovan drip. Getting EEG today. HD per renal. Needs neurology consult however if patient is in status, needs to be transferred to an institution that can provide continuous EEG monitoring. Overll prognosis is very guarded to poor. Have not spoken to yet today. 09/10/20: Loaded with keppra and will start on Keppra BID. Needs EEG on therapy as well as OFF. If patient is in status, needs transfer to a location with continuous EEG capabilities. FiO2 has been weaned back down and is now at 60%, sats in the high 90's. HD per renal. Coags improving. Overall prognosis is guarded to poor. Spoke with on phone yesterday. Consult neurology tomorrow as not available on the weekend. Suggest checking for antibodies as he may be a candidate for convalsescent plasma. Per the , he was diagnosed with COVID on and spent 6 days inpatient at the [facility]. Remains positive now with multisystem organ failure. Explained to that outcome may not be good but need more time to assess. 09/09/20: EEG ordered on yesterday but not done. If done not read. Continue diprovan for now until EEG can be done or interpreted. State Coags but given his oozing from his vascath, will give Vitamin K and FFP. Patient is covid positive so agree with steroids. Not a candidate for remdesivir. Need to check for antibodies, may be a candidate for convalescent plasma. HD per renal. Given improvement in pH will stop bicarb drip. Feed patient. CCT 31 minutes. Subjective Date of service: 09/15/20 Subjective Date of service: 09/17/20 Principal diagnosis: Abnormal LFTs, s/p cardiac arrest, acute kidney injury with ATN Interval history: No change. Patient remains unresponsive on mechanical ventilator. With FiO2 at 30%. WBC count has declined. Patient afebrile lactic acid levels are elevated. Objective Vital Signs - 12hr 09/17/20 09/17/20 09/17/20 00:00 01:00 02:00 Temperature 98.8 F Pulse Rate 62 62 62 Respiratory 16 23 25 H Rate Blood Pressure 129/65 120/63 122/64 O2 Sat by Pulse 100 100 100 Oximetry 09/17/20 09/17/20 09/17/20 03:00 04:00 04:06 Temperature 98.9 F Pulse Rate 63 61 61 Respiratory 24 31 H Rate Blood Pressure 107/68 126/64 131/65 O2 Sat by Pulse 100 100 100 Oximetry 09/17/20 09/17/20 09/17/20 05:00 06:00 07:00 Temperature 98.4 F Pulse Rate 62 66 64 Respiratory 31 H 26 H 11 L Rate Blood Pressure 133/65 137/67 130/63 O2 Sat by Pulse 100 100 100 Oximetry 09/17/20 09/17/20 09/17/20 07:45 08:00 09:00 Temperature 98.4 F Pulse Rate 64 65 64 Respiratory 28 H 18 Rate Blood Pressure 135/64 135/64 131/62 O2 Sat by Pulse 100 100 99 Oximetry 09/17/20 09/17/20 09/17/20 10:00 11:00 11:34 Temperature Pulse Rate 61 65 59 L Respiratory 30 H 6 L Rate Blood Pressure 134/63 162/71 126/61 O2 Sat by Pulse 100 100 100 Oximetry 09/17/20 11:43 Temperature 98.2 F Pulse Rate Respiratory Rate Blood Pressure O2 Sat by Pulse Oximetry Constitutional: comatose, other (morbidly obese) Eyes: non-icteric ENT: other (orally intubated and sedated) Neck: supple Effort: normal Ascultation: Bilateral: diminished breath sounds Percussion: Bilateral: not dull Cardiovascular: other (bradycardic) Gastrointestinal: soft CBC and BMP: 09/17/20 04:00 09/17/20 04:00 ABG, PT/INR, D-dimer: ABG ABG pH 7.442 (7.320-7.450) 09/14/20 03:54 POC ABG pCO2 42.3 mmHg (32.0-48.0) 09/14/20 03:54 ABG pCO2 33.4 mm Hg 09/11/20 05:40 POC ABG pO2 71.1 mmHg (83-108) L 09/14/20 03:54 ABG pO2 112.1 mm Hg (80.0-90.0) H 09/11/20 05:40 POC ABG HCO3 28.2 09/14/20 03:54 ABG O2 Saturation 98.4 % (95.0-99.0) 09/11/20 05:40 PT/INR, D-dimer PT 16.1 Sec. (12.2-14.9) H 09/12/20 04:00 INR 1.31 (0.87-1.13) H 09/12/20 04:00 D-Dimer 8315.85 ng/mlDDU (0-234) H 09/07/20 14:00 Abnormal lab findings: Abnormal Labs 09/07/20 09/07/20 09/07/20 13:08 14:00 14:00 WBC 15.7 H RBC Hgb 10.2 L Hct 32.5 L MCHC 31 L RDW 17.5 H Lymph % (Auto) Sanders % (Auto) Lymph # (Auto) Sanders # (Auto) Seg Neutrophils % Seg Neuts % (Manual) 72.0 H Lymphocytes % (Manual) Monocytes % (Manual) 8.0 H Nucleated RBC % Seg Neutrophils # Seg Neutrophils # Man 11.3 H Lymphocytes # (Manual) Monocytes # (Manual) 1.3 H PT INR D-Dimer 8315.85 H ABG pH POC ABG pCO2 POC ABG pO2 ABG pO2 ABG HCO3 ABG Base Excess ABG Hemoglobin ABG Oxyhemoglobin ABG Sodium ABG Potassium ABG Chloride ABG Glucose Carboxyhemoglobin Sodium Potassium Chloride Carbon Dioxide BUN Creatinine Glucose POC Glucose Lactic Acid Calcium Phosphorus Ferritin Total Bilirubin Direct Bilirubin AST ALT Lactate Dehydrogenase Total Creatine Kinase Troponin T Total Protein Albumin Triglycerides Arterial Blood Glucose Arterial Blood Ionized Calcium Urine pH 8.0 H Urine Creatinine Salicylates Acetaminophen Coronavirus (PCR) 09/07/20 09/07/20 09/07/20 14:00 14:00 14:00 WBC RBC Hgb Hct MCHC RDW Lymph % (Auto) Sanders % (Auto) Lymph # (Auto) Sanders # (Auto) Seg Neutrophils % Seg Neuts % (Manual) Lymphocytes % (Manual) Monocytes % (Manual) Nucleated RBC % Seg Neutrophils # Seg Neutrophils # Man Lymphocytes # (Manual) Monocytes # (Manual) PT INR D-Dimer ABG pH POC ABG pCO2 POC ABG pO2 ABG pO2 ABG HCO3 ABG Base Excess ABG Hemoglobin ABG Oxyhemoglobin ABG Sodium ABG Potassium ABG Chloride ABG Glucose Carboxyhemoglobin Sodium Potassium Chloride Carbon Dioxide BUN Creatinine Glucose POC Glucose Lactic Acid 4.30 H* Calcium Phosphorus Ferritin > 2000.0 H Total Bilirubin Direct Bilirubin AST ALT Lactate Dehydrogenase 882 H Total Creatine Kinase 477 H Troponin T 0.076 H Total Protein Albumin Triglycerides Arterial Blood Glucose Arterial Blood Ionized Calcium Urine pH Urine Creatinine Salicylates Acetaminophen Coronavirus (PCR) 09/07/20 09/07/20 09/07/20 14:00 14:00 14:00 WBC RBC Hgb Hct MCHC RDW Lymph % (Auto) Sanders % (Auto) Lymph # (Auto) Sanders # (Auto) Seg Neutrophils % Seg Neuts % (Manual) Lymphocytes % (Manual) Monocytes % (Manual) Nucleated RBC % Seg Neutrophils # Seg Neutrophils # Man Lymphocytes # (Manual) Monocytes # (Manual) PT INR D-Dimer ABG pH POC ABG pCO2 POC ABG pO2 ABG pO2 ABG HCO3 ABG Base Excess ABG Hemoglobin ABG Oxyhemoglobin ABG Sodium ABG Potassium ABG Chloride ABG Glucose Carboxyhemoglobin Sodium Potassium Chloride Carbon Dioxide BUN Creatinine 1.8 H Glucose POC Glucose Lactic Acid Calcium Phosphorus Ferritin Total Bilirubin Direct Bilirubin AST 310 H ALT 339 H Lactate Dehydrogenase Total Creatine Kinase Troponin T Total Protein Albumin 3.6 L Triglycerides Arterial Blood Glucose Arterial Blood Ionized Calcium Urine pH Urine Creatinine Salicylates < 0.3 L Acetaminophen 5.0 L Coronavirus (PCR) 09/07/20 09/08/20 09/08/20 14:26 04:00 04:17 WBC RBC Hgb Hct MCHC RDW Lymph % (Auto) Sanders % (Auto) Lymph # (Auto) Sanders # (Auto) Seg Neutrophils % Seg Neuts % (Manual) Lymphocytes % (Manual) Monocytes % (Manual) Nucleated RBC % Seg Neutrophils # Seg Neutrophils # Man Lymphocytes # (Manual) Monocytes # (Manual) PT INR D-Dimer ABG pH 7.037 L 7.095 L POC ABG pCO2 92.4 H 68.0 H POC ABG pO2 130.8 H 43.5 L ABG pO2 ABG HCO3 ABG Base Excess ABG Hemoglobin 11.3 L 10.6 L ABG Oxyhemoglobin 70.8 L ABG Sodium ABG Potassium 7.0 H ABG Chloride 108.0 H ABG Glucose Carboxyhemoglobin 0.3 L Sodium Potassium 8.4 H* D Chloride Carbon Dioxide 17 L D BUN 38 H Creatinine 3.9 H D Glucose POC Glucose Lactic Acid Calcium 7.7 L D Phosphorus Ferritin Total Bilirubin Direct Bilirubin AST ALT Lactate Dehydrogenase Total Creatine Kinase Troponin T Total Protein Albumin Triglycerides Arterial Blood Glucose Arterial Blood Ionized Calcium 4.5 L Urine pH Urine Creatinine Salicylates Acetaminophen Coronavirus (PCR) 09/08/20 09/08/20 09/08/20 05:00 05:25 12:02 WBC RBC Hgb Hct MCHC RDW Lymph % (Auto) Sanders % (Auto) Lymph # (Auto) Sanders # (Auto) Seg Neutrophils % Seg Neuts % (Manual) Lymphocytes % (Manual) Monocytes % (Manual) Nucleated RBC % Seg Neutrophils # Seg Neutrophils # Man Lymphocytes # (Manual) Monocytes # (Manual) PT INR D-Dimer ABG pH 7.088 L POC ABG pCO2 69.1 H POC ABG pO2 35.2 L ABG pO2 ABG HCO3 ABG Base Excess ABG Hemoglobin 10.9 L ABG Oxyhemoglobin 57.1 L ABG Sodium ABG Potassium 7.0 H ABG Chloride 108.0 H ABG Glucose Carboxyhemoglobin 0.4 L Sodium Potassium 8.1 H* Chloride Carbon Dioxide 17 L BUN 38 H Creatinine 3.7 H Glucose POC Glucose Lactic Acid Calcium 8.0 L Phosphorus 8.00 H Ferritin Total Bilirubin Direct Bilirubin 0.5 H AST 3696 H ALT 3331 H Lactate Dehydrogenase Total Creatine Kinase Troponin T Total Protein Albumin 3.5 L Triglycerides Arterial Blood Glucose Arterial Blood Ionized Calcium 4.4 L Urine pH Urine Creatinine Salicylates Acetaminophen Coronavirus (PCR) 09/08/20 09/08/20 09/08/20 16:31 22:36 Unknown WBC RBC Hgb Hct MCHC RDW Lymph % (Auto) Sanders % (Auto) Lymph # (Auto) Sanders # (Auto) Seg Neutrophils % Seg Neuts % (Manual) Lymphocytes % (Manual) Monocytes % (Manual) Nucleated RBC % Seg Neutrophils # Seg Neutrophils # Man Lymphocytes # (Manual) Monocytes # (Manual) PT INR D-Dimer ABG pH POC ABG pCO2 POC ABG pO2 ABG pO2 ABG HCO3 ABG Base Excess ABG Hemoglobin ABG Oxyhemoglobin ABG Sodium ABG Potassium ABG Chloride ABG Glucose Carboxyhemoglobin Sodium Potassium 5.3 H D Chloride Carbon Dioxide BUN Creatinine Glucose POC Glucose 158 H Lactic Acid Calcium Phosphorus Ferritin Total Bilirubin Direct Bilirubin AST ALT Lactate Dehydrogenase Total Creatine Kinase Troponin T Total Protein Albumin Triglycerides Arterial Blood Glucose Arterial Blood Ionized Calcium Urine pH Urine Creatinine Salicylates Acetaminophen Coronavirus (PCR) Positive A 09/08/20 09/08/20 09/08/20 Unknown Unknown Unknown WBC 18.4 H RBC Hgb 10.1 L Hct 32.0 L MCHC RDW 18.2 H Lymph % (Auto) Sanders % (Auto) Lymph # (Auto) Sanders # (Auto) Seg Neutrophils % Seg Neuts % (Manual) 81.0 H Lymphocytes % (Manual) 2.0 L Monocytes % (Manual) Nucleated RBC % 1.0 H Seg Neutrophils # Seg Neutrophils # Man 14.9 H Lymphocytes # (Manual) 0.4 L Monocytes # (Manual) 1.1 H PT 21.2 H INR 1.83 H D-Dimer ABG pH POC ABG pCO2 POC ABG pO2 ABG pO2 ABG HCO3 ABG Base Excess ABG Hemoglobin ABG Oxyhemoglobin ABG Sodium ABG Potassium ABG Chloride ABG Glucose Carboxyhemoglobin Sodium Potassium Chloride Carbon Dioxide BUN Creatinine Glucose POC Glucose Lactic Acid Calcium Phosphorus Ferritin Total Bilirubin Direct Bilirubin AST ALT Lactate Dehydrogenase Total Creatine Kinase Troponin T Total Protein Albumin Triglycerides Arterial Blood Glucose Arterial Blood Ionized Calcium Urine pH Urine Creatinine 182.4 H Salicylates Acetaminophen Coronavirus (PCR) 09/09/20 09/09/20 09/09/20 03:14 04:20 04:20 WBC 16.3 H RBC 3.12 L Hgb 8.6 L Hct 26.8 L MCHC RDW 18.2 H Lymph % (Auto) 6.3 L Sanders % (Auto) 8.8 H Lymph # (Auto) 1.0 L Sanders # (Auto) 1.4 H Seg Neutrophils % 84.5 H Seg Neuts % (Manual) Lymphocytes % (Manual) Monocytes % (Manual) Nucleated RBC % Seg Neutrophils # 13.7 H Seg Neutrophils # Man Lymphocytes # (Manual) Monocytes # (Manual) PT INR D-Dimer ABG pH POC ABG pCO2 POC ABG pO2 148.5 H ABG pO2 ABG HCO3 ABG Base Excess ABG Hemoglobin 9.4 L ABG Oxyhemoglobin 98.8 H ABG Sodium 134.8 L ABG Potassium 5.0 H ABG Chloride ABG Glucose 222 H Carboxyhemoglobin 0.1 L Sodium Potassium 5.2 H Chloride Carbon Dioxide BUN 47 H Creatinine 4.3 H Glucose 211 H POC Glucose Lactic Acid Calcium 7.4 L Phosphorus Ferritin Total Bilirubin Direct Bil[place] AST 94299 H ALT 6206 H Lactate Dehydrogenase Total Creatine Kinase Troponin T Total Protein 5.6 L Albumin 3.0 L Triglycerides Arterial Blood Glucose 222 H Arterial Blood Ionized Calcium 3.8 L Urine pH Urine Creatinine Salicylates Acetaminophen Coronavirus (PCR) 09/09/20 09/09/20 09/09/20 10:00 12:23 18:22 WBC RBC Hgb Hct MCHC RDW Lymph % (Auto) Sanders % (Auto) Lymph # (Auto) Sanders # (Auto) Seg Neutrophils % Seg Neuts % (Manual) Lymphocytes % (Manual) Monocytes % (Manual) Nucleated RBC % Seg Neutrophils # Seg Neutrophils # Man Lymphocytes # (Manual) Monocytes # (Manual) PT 21.7 H INR 1.90 H D-Dimer ABG pH POC ABG pCO2 POC ABG pO2 ABG pO2 ABG HCO3 ABG Base Excess ABG Hemoglobin ABG Oxyhemoglobin ABG Sodium ABG Potassium ABG Chloride ABG Glucose Carboxyhemoglobin Sodium Potassium Chloride Carbon Dioxide BUN Creatinine Glucose POC Glucose 216 H 211 H Lactic Acid Calcium Phosphorus Ferritin Total Bilirubin Direct Bilirubin AST ALT Lactate Dehydrogenase Total Creatine Kinase Troponin T Total Protein Albumin Triglycerides Arterial Blood Glucose Arterial Blood Ionized Calcium Urine pH Urine Creatinine Salicylates Acetaminophen Coronavirus (PCR) 09/10/20 09/10/20 09/10/20 04:00 04:05 04:05 WBC 15.0 H RBC 3.06 L Hgb 8.6 L Hct 25.8 L MCHC RDW 18.0 H Lymph % (Auto) Sanders % (Auto) Lymph # (Auto) Sanders # (Auto) Seg Neutrophils % Seg Neuts % (Manual) 86.0 H Lymphocytes % (Manual) 6.0 L Monocytes % (Manual) 8.0 H Nucleated RBC % Seg Neutrophils # Seg Neutrophils # Man 12.9 H Lymphocytes # (Manual) 0.9 L Monocytes # (Manual) 1.2 H PT 18.4 H INR 1.54 H D-Dimer ABG pH POC ABG pCO2 POC ABG pO2 ABG pO2 ABG HCO3 ABG Base Excess ABG Hemoglobin ABG Oxyhemoglobin ABG Sodium ABG Potassium ABG Chloride ABG Glucose Carboxyhemoglobin Sodium 134 L Potassium Chloride 93.7 L Carbon Dioxide BUN 46 H Creatinine 3.6 H Glucose 275 H POC Glucose Lactic Acid Calcium 7.7 L Phosphorus Ferritin Total Bilirubin 1.30 H Direct Bilirubin AST 5899 H ALT 6440 H Lactate Dehydrogenase Total Creatine Kinase Troponin T Total Protein 5.9 L Albumin 3.3 L Triglycerides Arterial Blood Glucose Arterial Blood Ionized Calcium Urine pH Urine Creatinine Salicylates Acetaminophen Coronavirus (PCR) 09/10/20 09/10/20 09/10/20 04:35 12:06 17:42 WBC RBC Hgb Hct MCHC RDW Lymph % (Auto) Sanders % (Auto) Lymph # (Auto) Sanders # (Auto) Seg Neutrophils % Seg Neuts % (Manual) Lymphocytes % (Manual) Monocytes % (Manual) Nucleated RBC % Seg Neutrophils # Seg Neutrophils # Man Lymphocytes # (Manual) Monocytes # (Manual) PT INR D-Dimer ABG pH 7.464 H POC ABG pCO2 POC ABG pO2 ABG pO2 ABG HCO3 ABG Base Excess ABG Hemoglobin 9.9 L ABG Oxyhemoglobin ABG Sodium 131.6 L ABG Potassium ABG Chloride 97.0 L ABG Glucose 281 H Carboxyhemoglobin 0.1 L Sodium Potassium Chloride Carbon Dioxide BUN Creatinine Glucose POC Glucose 298 H 340 H Lactic Acid Calcium Phosphorus Ferritin Total Bilirubin Direct Bilirubin AST ALT Lactate Dehydrogenase Total Creatine Kinase Troponin T Total Protein Albumin Triglycerides Arterial Blood Glucose 281 H Arterial Blood Ionized Calcium 3.9 L Urine pH Urine Creatinine Salicylates Acetaminophen Coronavirus (PCR) 09/10/20 09/11/20 09/11/20 23:07 04:44 05:17 WBC RBC Hgb Hct MCHC RDW Lymph % (Auto) Sanders % (Auto) Lymph # (Auto) Sanders # (Auto) Seg Neutrophils % Seg Neuts % (Manual) Lymphocytes % (Manual) Monocytes % (Manual) Nucleated RBC % Seg Neutrophils # Seg Neutrophils # Man Lymphocytes # (Manual) Monocytes # (Manual) PT 16.9 H INR 1.39 H D-Dimer ABG pH POC ABG pCO2 POC ABG pO2 ABG pO2 ABG HCO3 ABG Base Excess ABG Hemoglobin ABG Oxyhemoglobin ABG Sodium ABG Potassium ABG Chloride ABG Glucose Carboxyhemoglobin Sodium Potassium Chloride Carbon Dioxide BUN Creatinine Glucose POC Glucose 367 H 416 H Lactic Acid Calcium Phosphorus Ferritin Total Bilirubin Direct Bilirubin AST ALT Lactate Dehydrogenase Total Creatine Kinase Troponin T Total Protein Albumin Triglycerides Arterial Blood Glucose Arterial Blood Ionized Calcium Urine pH Urine Creatinine Salicylates Acetaminophen Coronavirus (PCR) 09/11/20 09/11/20 09/11/20 05:40 12:01 17:50 WBC RBC Hgb Hct MCHC RDW Lymph % (Auto) Sanders % (Auto) Lymph # (Auto) Sanders # (Auto) Seg Neutrophils % Seg Neuts % (Manual) Lymphocytes % (Manual) Monocytes % (Manual) Nucleated RBC % Seg Neutrophils # Seg Neutrophils # Man Lymphocytes # (Manual) Monocytes # (Manual) PT INR D-Dimer ABG pH 7.543 H POC ABG pCO2 POC ABG pO2 ABG pO2 112.1 H ABG HCO3 28.1 H ABG Base Excess 5.4 H ABG Hemoglobin 8.4 L ABG Oxyhemoglobin ABG Sodium ABG Potassium ABG Chloride ABG Glucose Carboxyhemoglobin Sodium Potassium Chloride Carbon Dioxide BUN Creatinine Glucose POC Glucose 418 H 404 H Lactic Acid Calcium Phosphorus Ferritin Total Bilirubin Direct Bilirubin AST ALT Lactate Dehydrogenase Total Creatine Kinase Troponin T Total Protein Albumin Triglycerides Arterial Blood Glucose Arterial Blood Ionized Calcium Urine pH Urine Creatinine Salicylates Acetaminophen Coronavirus (PCR) 09/11/20 09/11/20 09/12/20 23:10 23:43 03:15 WBC RBC Hgb Hct MCHC RDW Lymph % (Auto) Sanders % (Auto) Lymph # (Auto) Sanders # (Auto) Seg Neutrophils % Seg Neuts % (Manual) Lymphocytes % (Manual) Monocytes % (Manual) Nucleated RBC % Seg Neutrophils # Seg Neutrophils # Man Lymphocytes # (Manual) Monocytes # (Manual) PT INR D-Dimer ABG pH POC ABG pCO2 POC ABG pO2 ABG pO2 ABG HCO3 ABG Base Excess ABG Hemoglobin ABG Oxyhemoglobin ABG Sodium ABG Potassium ABG Chloride ABG Glucose Carboxyhemoglobin Sodium 135 L Potassium Chloride 92.3 L Carbon Dioxide BUN 62 H Creatinine 3.7 H Glucose 406 H POC Glucose 372 H 359 H Lactic Acid Calcium Phosphorus Ferritin Total Bilirubin Direct Bilirubin AST 687 H ALT 3701 H Lactate Dehydrogenase Total Creatine Kinase Troponin T Total Protein 5.8 L Albumin 3.1 L Triglycerides Arterial Blood Glucose Arterial Blood Ionized Calcium Urine pH Urine Creatinine Salicylates Acetaminophen Coronavirus (PCR) 09/12/20 09/12/2009/12/21 03:18 04:00 04:00 WBC 13.7 H RBC 3.30 L Hgb 9.3 L Hct 27.6 L MCHC RDW 17.5 H Lymph % (Auto) Sanders % (Auto) Lymph # (Auto) Sanders # (Auto) Seg Neutrophils % Seg Neuts % (Manual) 76.0 H Lymphocytes % (Manual) 11.0 L Monocytes % (Manual) 13.0 H Nucleated RBC % Seg Neutrophils # Seg Neutrophils # Man 10.4 H Lymphocytes # (Manual) Monocytes # (Manual) 1.8 H PT 16.1 H INR 1.31 H D-Dimer ABG pH 7.558 H POC ABG pCO2 POC ABG pO2 74.7 L ABG pO2 ABG HCO3 ABG Base Excess ABG Hemoglobin 9.7 L ABG Oxyhemoglobin ABG Sodium 132.4 L ABG Potassium ABG Chloride 95.0 L ABG Glucose 437 H Carboxyhemoglobin Sodium Potassium Chloride Carbon Dioxide BUN Creatinine Glucose POC Glucose Lactic Acid Calcium Phosphorus Ferritin Total Bilirubin Direct Bilirubin AST ALT Lactate Dehydrogenase Total Creatine Kinase Troponin T Total Protein Albumin Triglycerides Arterial Blood Glucose 437 H Arterial Blood Ionized Calcium 4.3 L Urine pH Urine Creatinine Salicylates Acetaminophen Coronavirus (PCR) 09/12/20 09/12/20 09/12/20 04:21 05:20 06:37 WBC RBC Hgb Hct MCHC RDW Lymph % (Auto) Sanders % (Auto) Lymph # (Auto) Sanders # (Auto) Seg Neutrophils % Seg Neuts % (Manual) Lymphocytes % (Manual) Monocytes % (Manual) Nucleated RBC % Seg Neutrophils # Seg Neutrophils # Man Lymphocytes # (Manual) Monocytes # (Manual) PT INR D-Dimer ABG pH POC ABG pCO2 POC ABG pO2 ABG pO2 ABG HCO3 ABG Base Excess ABG Hemoglobin ABG Oxyhemoglobin ABG Sodium ABG Potassium ABG Chloride ABG Glucose Carboxyhemoglobin Sodium Potassium Chloride Carbon Dioxide BUN Creatinine Glucose POC Glucose 417 H 397 H 370 H Lactic Acid Calcium Phosphorus Ferritin Total Bilirubin Direct Bilirubin AST ALT Lactate Dehydrogenase Total Creatine Kinase Troponin T Total Protein Albumin Triglycerides Arterial Blood Glucose Arterial Blood Ionized Calcium Urine pH Urine Creatinine Salicylates Acetaminophen Coronavirus (PCR) 09/12/20 09/12/20 09/12/20 11:56 17:14 21:52 WBC RBC Hgb Hct MCHC RDW Lymph % (Auto) Sanders % (Auto) Lymph # (Auto) Sanders # (Auto) Seg Neutrophils % Seg Neuts % (Manual) Lymphocytes % (Manual) Monocytes % (Manual) Nucleated RBC % Seg Neutrophils # Seg Neutrophils # Man Lymphocytes # (Manual) Monocytes # (Manual) PT INR D-Dimer ABG pH POC ABG pCO2 POC ABG pO2 ABG pO2 ABG HCO3 ABG Base Excess ABG Hemoglobin ABG Oxyhemoglobin ABG Sodium ABG Potassium ABG Chloride ABG Glucose Carboxyhemoglobin Sodium Potassium Chloride Carbon Dioxide BUN Creatinine Glucose POC Glucose 341 H 325 H 285 H Lactic Acid Calcium Phosphorus Ferritin Total Bilirubin Direct Bilirubin AST ALT Lactate Dehydrogenase Total Creatine Kinase Troponin T Total Protein Albumin Triglycerides Arterial Blood Glucose Arterial Blood Ionized Calcium Urine pH Urine Creatinine Salicylates Acetaminophen Coronavirus (PCR) 09/12/20 09/12/20 09/12/20 23:39 Unknown Unknown WBC RBC Hgb Hct MCHC RDW Lymph % (Auto) Sanders % (Auto) Lymph # (Auto) Sanders # (Auto) Seg Neutrophils % Seg Neuts % (Manual) Lymphocytes % (Manual) Monocytes % (Manual) Nucleated RBC % Seg Neutrophils # Seg Neutrophils # Man Lymphocytes # (Manual) Monocytes # (Manual) PT INR D-Dimer ABG pH POC ABG pCO2 POC ABG pO2 ABG pO2 ABG HCO3 ABG Base Excess ABG Hemoglobin ABG Oxyhemoglobin ABG Sodium ABG Potassium ABG Chloride ABG Glucose Carboxyhemoglobin Sodium 135 L Potassium Chloride 92.2 L Carbon Dioxide BUN 65 H Creatinine 3.5 H Glucose 418 H POC Glucose 338 H Lactic Acid Calcium Phosphorus Ferritin Total Bilirubin Direct Bilirubin AST 553 H ALT 3453 H Lactate Dehydrogenase Total Creatine Kinase Troponin T Total Protein 5.9 L Albumin 3.0 L Triglycerides 220 H Arterial Blood Glucose Arterial Blood Ionized Calcium Urine pH Urine Creatinine Salicylates Acetaminophen Coronavirus (PCR) 09/13/20 09/13/20 09/13/20 04:47 05:24 10:50 WBC RBC Hgb Hct MCHC RDW Lymph % (Auto) Sanders % (Auto) Lymph # (Auto) Sanders # (Auto) Seg Neutrophils % Seg Neuts % (Manual) Lymphocytes % (Manual) Monocytes % (Manual) Nucleated RBC % Seg Neutrophils # Seg Neutrophils # Man Lymphocytes # (Manual) Monocytes # (Manual) PT INR D-Dimer ABG pH 7.571 H POC ABG pCO2 POC ABG pO2 69.0 L ABG pO2 ABG HCO3 ABG Base Excess ABG Hemoglobin 10.1 L ABG Oxyhemoglobin 93.2 L ABG Sodium 134.0 L ABG Potassium ABG Chloride ABG Glucose 365 H Carboxyhemoglobin 0.4 L Sodium Potassium Chloride 96.6 L Carbon Dioxide 32 H BUN 76 H Creatinine 3.1 H Glucose 395 H POC Glucose 329 H Lactic Acid Calcium Phosphorus Ferritin Total Bilirubin Direct Bilirubin AST ALT Lactate Dehydrogenase Total Creatine Kinase Troponin T Total Protein Albumin Triglycerides Arterial Blood Glucose 365 H Arterial Blood Ionized Calcium Urine pH Urine Creatinine Salicylates Acetaminophen Coronavirus (PCR) 09/13/20 09/13/20 09/13/20 11:39 17:48 23:35 WBC RBC Hgb Hct MCHC RDW Lymph % (Auto) Sanders % (Auto) Lymph # (Auto) Sanders # (Auto) Seg Neutrophils % Seg Neuts % (Manual) Lymphocytes % (Manual) Monocytes % (Manual) Nucleated RBC % Seg Neutrophils # Seg Neutrophils # Man Lymphocytes # (Manual) Monocytes # (Manual) PT INR D-Dimer ABG pH POC ABG pCO2 POC ABG pO2 ABG pO2 ABG HCO3 ABG Base Excess ABG Hemoglobin ABG Oxyhemoglobin ABG Sodium ABG Potassium ABG Chloride ABG Glucose Carboxyhemoglobin Sodium Potassium Chloride Carbon Dioxide BUN Creatinine Glucose POC Glucose 344 H 286 H 223 H Lactic Acid Calcium Phosphorus Ferritin Total Bilirubin Direct Bilirubin AST ALT Lactate Dehydrogenase Total Creatine Kinase Troponin T Total Protein Albumin Triglycerides Arterial Blood Glucose Arterial Blood Ionized Calcium Urine pH Urine Creatinine Salicylates Acetaminophen Coronavirus (PCR) 09/14/20 09/14/20 09/14/20 03:54 05:34 10:27 WBC RBC Hgb Hct MCHC RDW Lymph % (Auto) Sanders % (Auto) Lymph # (Auto) Sanders # (Auto) Seg Neutrophils % Seg Neuts % (Manual) Lymphocytes % (Manual) Monocytes % (Manual) Nucleated RBC % Seg Neutrophils # Seg Neutrophils # Man Lymphocytes # (Manual) Monocytes # (Manual) PT INR D-Dimer ABG pH POC ABG pCO2 POC ABG pO2 71.1 L ABG pO2 ABG HCO3 ABG Base Excess ABG Hemoglobin 10.3 L ABG Oxyhemoglobin ABG Sodium 135.2 L ABG Potassium ABG Chloride ABG Glucose 281 H Carboxyhemoglobin Sodium Potassium Chloride 96.6 L Carbon Dioxide BUN 100 H Creatinine 3.9 H Glucose 286 H POC Glucose 252 H Lactic Acid Calcium Phosphorus Ferritin Total Bilirubin Direct Bilirubin AST 145 H ALT 1400 H Lactate Dehydrogenase Total Creatine Kinase Troponin T Total Protein 5.6 L Albumin 2.9 L Triglycerides Arterial Blood Glucose 281 H Arterial Blood Ionized Calcium Urine pH Urine Creatinine Salicylates Acetaminophen Coronavirus (PCR) 09/14/20 09/14/20 09/14/20 11:38 17:52 23:07 WBC RBC Hgb Hct MCHC RDW Lymph % (Auto) Sanders % (Auto) Lymph # (Auto) Sanders # (Auto) Seg Neutrophils % Seg Neuts % (Manual) Lymphocytes % (Manual) Monocytes % (Manual) Nucleated RBC % Seg Neutrophils # Seg Neutrophils # Man Lymphocytes # (Manual) Monocytes # (Manual) PT INR D-Dimer ABG pH POC ABG pCO2 POC ABG pO2 ABG pO2 ABG HCO3 ABG Base Excess ABG Hemoglobin ABG Oxyhemoglobin ABG Sodium ABG Potassium ABG Chloride ABG Glucose Carboxyhemoglobin Sodium Potassium Chloride Carbon Dioxide BUN Creatinine Glucose POC Glucose 247 H 247 H 256 H Lactic Acid Calcium Phosphorus Ferritin Total Bilirubin Direct Bilirubin AST ALT Lactate Dehydrogenase Total Creatine Kinase Troponin T Total Protein Albumin Triglycerides Arterial Blood Glucose Arterial Blood Ionized Calcium Urine pH Urine Creatinine Salicylates Acetaminophen Coronavirus (PCR) 09/15/20 09/15/20 09/15/20 04:54 11:24 17:48 WBC RBC Hgb Hct MCHC RDW Lymph % (Auto) Sanders % (Auto) Lymph # (Auto) Sanders # (Auto) Seg Neutrophils % Seg Neuts % (Manual) Lymphocytes % (Manual) Monocytes % (Manual) Nucleated RBC % Seg Neutrophils # Seg Neutrophils # Man Lymphocytes # (Manual) Monocytes # (Manual) PT INR D-Dimer ABG pH POC ABG pCO2 POC ABG pO2 ABG pO2 ABG HCO3 ABG Base Excess ABG Hemoglobin ABG Oxyhemoglobin ABG Sodium ABG Potassium ABG Chloride ABG Glucose Carboxyhemoglobin Sodium Potassium Chloride Carbon Dioxide BUN Creatinine Glucose POC Glucose 271 H 228 H 254 H Lactic Acid Calcium Phosphorus Ferritin Total Bilirubin Direct Bilirubin AST ALT Lactate Dehydrogenase Total Creatine Kinase Troponin T Total Protein Albumin Triglycerides Arterial Blood Glucose Arterial Blood Ionized Calcium Urine pH Urine Creatinine Salicylates Acetaminophen Coronavirus (PCR) 09/15/20 09/15/20 09/15/20 19:20 19:20 23:13 WBC 27.3 H RBC 3.16 L Hgb 8.8 L Hct 27.0 L MCHC RDW 19.7 H Lymph % (Auto) Sanders % (Auto) Lymph # (Auto) Sanders # (Auto) Seg Neutrophils % Seg Neuts % (Manual) 81.0 H Lymphocytes % (Manual) 9.0 L Monocytes % (Manual) 10.0 H Nucleated RBC % Seg Neutrophils # Seg Neutrophils # Man 22.1 H Lymphocytes # (Manual) Monocytes # (Manual) 2.7 H PT INR D-Dimer ABG pH POC ABG pCO2 POC ABG pO2 ABG pO2 ABG HCO3 ABG Base Excess ABG Hemoglobin ABG Oxyhemoglobin ABG Sodium ABG Potassium ABG Chloride ABG Glucose Carboxyhemoglobin Sodium Potassium Chloride Carbon Dioxide BUN 68 H Creatinine 2.8 H Glucose 288 H POC Glucose 259 H Lactic Acid Calcium Phosphorus Ferritin Total Bilirubin Direct Bilirubin AST ALT Lactate Dehydrogenase Total Creatine Kinase Troponin T Total Protein Albumin Triglycerides Arterial Blood Glucose Arterial Blood Ionized Calcium Urine pH Urine Creatinine Salicylates Acetaminophen Coronavirus (PCR) 09/16/20 09/16/20 09/16/20 05:27 09:40 11:48 WBC RBC Hgb Hct MCHC RDW Lymph % (Auto) Sanders % (Auto) Lymph # (Auto) Sanders # (Auto) Seg Neutrophils % Seg Neuts % (Manual) Lymphocytes % (Manual) Monocytes % (Manual) Nucleated RBC % Seg Neutrophils # Seg Neutrophils # Man Lymphocytes # (Manual) Monocytes # (Manual) PT INR D-Dimer ABG pH POC ABG pCO2 POC ABG pO2 ABG pO2 ABG HCO3 ABG Base Excess ABG Hemoglobin ABG Oxyhemoglobin ABG Sodium ABG Potassium ABG Chloride ABG Glucose Carboxyhemoglobin Sodium Potassium Chloride Carbon Dioxide 31 H BUN 77 H Creatinine 2.9 H Glucose 250 H POC Glucose 275 H 234 H Lactic Acid Calcium Phosphorus Ferritin Total Bilirubin Direct Bilirubin AST ALT Lactate Dehydrogenase Total Creatine Kinase Troponin T Total Protein Albumin Triglycerides Arterial Blood Glucose Arterial Blood Ionized Calcium Urine pH Urine Creatinine Salicylates Acetaminophen Coronavirus (PCR) 09/16/20 09/16/20 09/17/20 17:40 23:23 00:01 WBC RBC Hgb Hct MCHC RDW Lymph % (Auto) Sanders % (Auto) Lymph # (Auto) Sanders # (Auto) Seg Neutrophils % Seg Neuts % (Manual) Lymphocytes % (Manual) Monocytes % (Manual) Nucleated RBC % Seg Neutrophils # Seg Neutrophils # Man Lymphocytes # (Manual) Monocytes # (Manual) PT INR D-Dimer ABG pH POC ABG pCO2 POC ABG pO2 ABG pO2 ABG HCO3 ABG Base Excess ABG Hemoglobin ABG Oxyhemoglobin ABG Sodium ABG Potassium ABG Chloride ABG Glucose Carboxyhemoglobin Sodium Potassium Chloride Carbon Dioxide BUN Creatinine Glucose POC Glucose 172 H 161 H Lactic Acid 2.10 H* Calcium Phosphorus Ferritin Total Bilirubin Direct Bilirubin AST ALT Lactate Dehydrogenase Total Creatine Kinase Troponin T Total Protein Albumin Triglycerides Arterial Blood Glucose Arterial Blood Ionized Calcium Urine pH Urine Creatinine Salicylates Acetaminophen Coronavirus (PCR) 09/17/20 09/17/20 09/17/20 04:00 04:00 05:09 WBC 19.5 H RBC 3.03 L Hgb 8.6 L Hct 26.3 L MCHC RDW 19.4 H Lymph % (Auto) 8.7 L Sanders % (Auto) 13.7 H Lymph # (Auto) Sanders # (Auto) 2.7 H Seg Neutrophils % 76.9 H Seg Neuts % (Manual) Lymphocytes % (Manual) Monocytes % (Manual) Nucleated RBC % Seg Neutrophils # 15.0 H Seg Neutrophils # Man Lymphocytes # (Manual) Monocytes # (Manual) PT INR D-Dimer ABG pH POC ABG pCO2 POC ABG pO2 ABG pO2 ABG HCO3 ABG Base Excess ABG Hemoglobin ABG Oxyhemoglobin ABG Sodium ABG Potassium ABG Chloride ABG Glucose Carboxyhemoglobin Sodium 146 H Potassium 3.1 L Chloride Carbon Dioxide BUN 79 H Creatinine 2.6 H Glucose 122 H POC Glucose 116 H Lactic Acid Calcium Phosphorus Ferritin Total Bilirubin Direct Bilirubin AST 64 H ALT 516 H Lactate Dehydrogenase Total Creatine Kinase Troponin T Total Protein 5.7 L Albumin 2.8 L Triglycerides Arterial Blood Glucose Arterial Blood Ionized Calcium Urine pH Urine Creatinine Salicylates Acetaminophen Coronavirus (PCR)
[2020-09-17] MEDS ORDERED: POTASSIUM CHLORIDE 20 MEQ PACKET FEEDTUBE ONE (15:30)
[2020-09-17] MEDS: SIMPLE SYRUP 15 ML FEEDTUBE PRN (17:43)
--- NOTE | 2020-09-17 22:17 | Progress Note ---
Assessment and Plan Impression: * Nonoliguric RYAN secondary to ATN * Severe hyperkalemia - resolved * COVID 19 PNA * s/p OOH cardiac arrest * Acute hypoxic respiratory failure * Seizure activity * Anemia Plan: * Patient is s/p emergent HD - 09/08 * Continue MWF * Check labs daily * Strict I/O * Monitor for renal recovery * Keep MAP > 65 * Vent management per CCM * Steroids per primary team/ID * Dose medications for renal function * Avoid potential nephrotoxins * Prognosis is guarded Subjective Date of service: 09/17/20 Principal diagnosis: Abnormal LFTs, s/p cardiac arrest, acute kidney injury with ATN Interval history: Remains intubated Tolerated dialysis without complications yesterday Patient followed for his renal issues Nursing, interdisciplinary and consult notes were reviewed Vitals, input and output, medications and labs were reviewed Objective - Exam Narrative Exam: Deferred for PPE conservation and to prevent spread of infection - Vital Signs Vital signs: Vital Signs - 12hr 09/17/20 09/17/20 09/17/20 11:00 11:34 11:43 Temperature 98.2 F Pulse Rate 65 59 L Respiratory 6 L Rate Blood Pressure 162/71 126/61 O2 Sat by Pulse 100 100 Oximetry 09/17/20 09/17/20 09/17/20 12:00 13:00 14:00 Temperature Pulse Rate 67 63 62 Respiratory 11 L 16 13 Rate Blood Pressure 129/61 127/64 124/65 O2 Sat by Pulse 100 99 100 Oximetry 09/17/20 09/17/20 09/17/20 15:00 15:06 16:00 Temperature 98.5 F Pulse Rate 62 61 64 Respiratory 16 7 L Rate Blood Pressure 122/60 124/61 109/56 O2 Sat by Pulse 100 100 100 Oximetry 09/17/20 09/17/20 09/17/20 17:00 18:00 19:00 Temperature Pulse Rate 59 L 61 68 Respiratory 11 L 30 H 25 H Rate Blood Pressure 126/64 131/66 133/63 O2 Sat by Pulse 100 99 100 Oximetry 09/17/20 09/17/20 19:53 20:00 Temperature 98.8 F Pulse Rate 62 62 Respiratory 13 Rate Blood Pressure 118/64 118/64 O2 Sat by Pulse 100 100 Oximetry - Lab 09/17/20 04:00 09/17/20 04:00 Most recent lab results ABG pH 7.442 (7.320-7.450) 09/14/20 03:54 ABG pCO2 33.4 mm Hg 09/11/20 05:40 ABG pO2 112.1 mm Hg (80.0-90.0) H 09/11/20 05:40 ABG HCO3 28.1 mmol/L (20.0-26.0) H 09/11/20 05:40 ABG O2 Saturation 98.4 % (95.0-99.0) 09/11/20 05:40 Calcium 9.2 mg/dL (8.4-10.2) 09/17/20 04:00 Phosphorus 8.00 mg/dL (2.5-4.5) H 09/08/20 12:02 Magnesium 1.80 mg/dL (1.7-2.3) 09/08/20 12:02 Urine Creatinine 182.4 mg/dL (0.1-20.0) H 09/08/20 Unknown Urine Sodium 40 mmol/L 09/08/20 Unknown Medications & Allergies - Medications Allergies/Adverse Reactions: Allergies Unable to Assess Allergy (Verified 09/07/20 13:43) intubated Home Medications: Home Medications Medication Instructions Recorded Confirmed Last Taken Type Albuterol Sulfate 60 mcg IH PRN 09/11/20 09/11/20 Unknown History Cholecalciferol (Vitamin D3) 25 tab PO DAILY 09/11/20 09/11/20 Unknown History Cozaar 25 tab PO DAILY 09/11/20 09/11/20 Unknown History HumaLOG 14 unit SQ AC 09/11/20 09/11/20 Unknown History Hydralazine HCl 50 tab PO TID 09/11/20 09/11/20 Unknown History Isosorbide Dinitrate 30 mg PO DAILY 09/11/20 09/11/20 Unknown History Lantus VIAL 54 units SQ HS 09/11/20 09/11/20 Unknown History Lasix 20 tab PO DAILY 09/11/20 09/11/20 Unknown History Nifedipine 30 tab PO DAILY 09/11/20 09/11/20 Unknown History Active Medications: Generic Name Dose Route Start Last Admin Trade Name Freq PRN Reason Stop Dose Admin Acetaminophen 400 mg 09/10/20 20:50 09/14/20 23:38 Acetaminophen 325 Mg/10.15 Ml Oral Liqd Unit Dose PO 400 mg Q4HR PRN Administration Non Cardiac Pain or Temp>100.5 Lipase/Protease/Amylase 1 each 09/09/20 09:40 Lipase 10,500/Protease 25,000/Amylase 43,750 (Units) Dr Cap FEEDTUBE PRN PRN For Clogged Feeding Tube Hydrophilic Ointment 1 applic 09/07/20 13:08 Lip Therapy Vaseline TP Q2HR PRN Dry Lips Norepinephrine 4 mg in 250 mls @ 7.5 mls/hr 09/08/20 01:30 09/14/20 23:38 Levophed Drip 4 Mg/Ns 250 Ml IV 0 mcg/min TITR TAYLOR 0 mls/hr Titration Protocol 2 MCG/MIN Lorazepam 100 mg/ Sodium 100 mls @ 1 mls/hr 09/08/20 04:00 09/12/20 17:22 Chloride/ Miscellaneous IV 0 mg/hr Information TITR TAYLOR 0 mls/hr Titration Protocol 1 MG/HR Propofol 1,000 mg in 100 mls @ 4.995 mls/hr 09/08/20 20:00 09/15/20 07:00 Diprivan 10 Mg/Ml IV 0 mcg/kg/min TITR TAYLOR 0 mls/hr Titration Protocol 5 MCG/KG/MIN Sodium Chloride 100 mls @ 999 mls/hr 09/09/20 13:36 Nacl 0.9% IV JAYJAY PRN Hypotension Levetiracetam 1,500 mg/ 115 mls @ 400 mls/hr 09/11/20 10:00 09/17/20 21:51 Dextrose IV 400 mls/hr BID TAYLOR Administration Valproate Sodium 1,000 mg/ 110 mls @ 100 mls/hr 09/14/20 22:00 09/17/20 21:51 Sodium Chloride IV 100 mls/hr Q12HR TAYLOR Administration Insulin Glargine 30 units 09/14/20 22:00 09/17/20 21:52 Insulin Glargine 100 Units/Ml SUB-Q Not Given BID TAYLOR Insulin Human Lispro 0 unit 09/12/20 12:00 09/17/20 18:16 Insulin Lispro 100 Unit/Ml SUB-Q Not Given Q6HR TAYLOR Protocol Lansoprazole 30 mg 09/11/20 11:00 09/17/20 21:51 Lansoprazole 30 Mg Solutab FEEDTUBE 30 mg BID TAYLOR Administration Lorazepam 2 mg 09/08/20 00:14 09/14/20 13:36 Lorazepam 2 Mg/Ml Vial IV 2 mg Q4H PRN Administration Seizures Multi-Ingred Cream/Lotion/Oil/Oint 1 applic 09/07/20 13:08 Mineral Oil/Petrolatum, White Ophth Oint 3.5 Gm OU Q4HR PRN Dry Eye(s) Multivitamins 5 ml 09/09/20 12:00 09/17/20 10:28 Multivitamins 5 Ml Oral Liquid PO 5 ml QDAY TAYLOR Administration Ondansetron HCl 4 mg 09/07/20 17:55 Ondansetron 4 Mg/2 Ml Inj IV Q8H PRN Nausea And Vomiting Senna/Docusate Sodium 2 tab 09/13/20 11:00 09/17/20 21:51 Sennosides/Docusate Sodium 8.6/50 Mg Tab PO 2 tab BID TAYLOR Administration Simple Syrup 15 ml 09/09/20 09:40 09/17/20 17:43 Simple Syrup 15 Ml FEEDTUBE 15 ml PRN PRN Administration Hypoglycemia Simple Syrup 30 ml 09/09/20 09:40 Simple Syrup 15 Ml FEEDTUBE PRN PRN Hypoglycemia Sodium Bicarbonate 325 mg 09/09/20 09:40 Sodium Bicarbonate 325 Mg Tab FEEDTUBE PRN PRN For Clogged Feeding Tube Sodium Chloride 10 ml 09/07/20 22:00 09/17/20 21:55 Sodium Chloride 0.9% 10 Ml Flush Syringe IV 10 ml BID TAYLOR Administration Sodium Chloride 10 ml 09/07/20 17:55 Sodium Chloride 0.9% 10 Ml Flush Syringe IV PRN PRN LINE FLUSH
[2020-09-18 05:48] LABS: Hematocrit 27.2 % (35.5-45.6); Mean Corpuscular HGB Conc 33 % (32-34); Mean Corpuscular Volume 86 fl (84-94); Platelet Count 188 K/mm3 (140-440); Red Blood Count 3.18 M/mm3 (3.65-5.03); Red Cell Distribution Width 18.8 % (13.2-15.2)
[2020-09-18 06:08] LABS: Calcium 9.2 mg/dL (8.4-10.2)
[2020-09-18] MEDS: INSULIN LISPRO 100 UNIT/ML SUB-Q SCH ×4 (06:16→18:00)
[2020-09-18] MEDS: ONDANSETRON 4 MG/2 ML INJ IV PRN (06:17)
--- NOTE | 2020-09-18 09:47 | Progress Note ---
Assessment and Plan Assessment and plan: S/p cardiopulmonary arrest Toxic metabolic encephalopathy +/-anoxic injury Acute hypoxic respiratory failure Acute kidney injury Seizure disorder Hyperkalemia COVID-19 pneumonia Sepsis Transaminitis Morbid obesity. 09/15/2020. MRI brain for further evaluation. Continue AEDs of valproic acid and Keppra. Continue hemodialysis per nephrology recommendations. Overall prognosis remains guarded and poor. 09/16/2020. ID recommends continue to monitor patient off of antibiotics. Fever most likely of central etiology. Patient with questionable seizures versus myoclonus from anoxic brain injury. Patient unable to undergo MRI due to body habitus. Continue AEDs per neurology recommendations. Inflammatory markers elevated. Patient was recently hospitalized for COVID[place] pneumonia [place]. Patient not a candidate for remdesivir due to hepatic and renal failure. Viral hepatitis panel negative. Overall prognosis extremely poor. 09/17/2020. Fevers have resolved over the past 48 hours. Continue to monitor off antibiotics per ID recommendations. Patient with questionable seizures versus myoclonus from anoxic brain injury. Patient unable to undergo MRI due to body habitus. EEG is nonspecific but given CT of head findings consistent with anoxic encephalopathy, brain injury. Continue AEDs per neurology recommendations. Inflammatory markers elevated. Patient was recently hospitalized for COVID-19 pneumonia [place] the [place] to being [place]. Patient not a candidate for remdesivir due to hepatic and renal failure. Viral hepatitis panel negative. Patient is s/p emergent HD on Friday (hyperK) and Friday - 09/08. Patient also S/p HD 09/15. Continue hemodialysis per nephrology recommendations. Patient currently on AC/PRVC mode ventilation with rate of 30, tidal volume 475, FiO2 30% and PEEP of 6. As stated in neuro note, overall prognosis is very poor. 09/18/2020. Fevers have resolved over the past 72 hours. Continue to monitor off antibiotics per ID recommendations. Leukocytosis persistent for the past 4 days. Patient with questionable seizures/myoclonus from anoxic brain injury. Patient unable to undergo MRI due to body habitus. EEG is nonspecific but given CT of head findings consistent with anoxic encephalopathy, brain injury. Continue AEDs per neurology recommendations. Inflammatory markers elevated. Patient was recently hospitalized for COVID-19 pneumonia [place]. Patient not a candidate for remdesivir due to hepatic and renal failure. Viral hepatitis panel negative. Patient currently on AC/PRVC mode ventilation with rate of 30, tidal volume 475, FiO2 30% and PEEP of 6. Overall prognosis remains guarded/poor. The high probability of a clinically significant, sudden or life threatening deterioration of the [cardiac, respiratory and neurological] system(s) required my full and direct attention, intervention and personal management. The aggregate critical care time was [32] minutes. This time is in addition to time spent performing reported procedures but includes the following: [x] Data Review and interpretation [x] Patient assessment and monitoring of vital signs [x] Documentation [x] Medication orders and management History Interval history: 65 y/o male with out of hospital cardiac arrest, acute hypoxic respiratory failure and COVID-19 infection. Hospitalist Physical - Constitutional Vitals: Temp Pulse Resp BP Pulse Ox 98.5 F 63 31 H 140/78 100 09/18/20 08:00 09/18/20 09:00 09/18/20 09:00 09/18/20 09:00 09/18/20 09:00 General appearance: Present: other (Intubated sedated) - EENT Eyes: Present: PERRL, EOM intact ENT: hearing intact, clear oral mucosa, dentition normal - Neck Neck: Present: supple, normal ROM - Respiratory Respiratory effort: normal Respiratory: bilateral: diminished, rhonchi - Cardiovascular Rhythm: regular Heart Sounds: Present: S1 & S2. Absent: gallop, rub - Extremities Extremities: no ischemia, No edema, Full ROM - Abdominal General gastrointestinal: soft, non-tender, non-distended, normal bowel sounds - Integumentary Integumentary: Present: clear, warm, dry - Neurologic Neurologic: CNII-XII intact, moves all extremities HEART Score - HEART Score Troponin: Troponin T 0.076 ng/mL (0.00-0.029) H 09/07/20 14:00 Results - Labs CBC & Chem 7: 09/18/20 05:30 09/18/20 05:30 Labs: Laboratory Last Values WBC 18.2 K/mm3 (4.5-11.0) H 09/18/20 05:30 RBC 3.18 M/mm3 (3.65-5.03) L 09/18/20 05:30 Hgb 9.0 gm/dl (11.8-15.2) L 09/18/20 05:30 Hct 27.2 % (35.5-45.6) L 09/18/20 05:30 MCV 86 fl (84-94) 09/18/20 05:30 MCH 28 pg (28-32) 09/18/20 05:30 MCHC 33 % (32-34) 09/18/20 05:30 RDW 18.8 % (13.2-15.2) H 09/18/20 05:30 Plt Count 188 K/mm3 (140-440) 09/18/20 05:30 Lymph % (Auto) 8.7 % (13.4-35.0) L 09/17/20 04:00 [place] % (Auto) 13.7 % (0.0-7.3) H 09/17/20 04:00 Eos % (Auto) 0.4 % (0.0-4.3) 09/17/20 04:00 Baso % (Auto) 0.3 % (0.0-1.8) 09/17/20 04:00 Lymph # (Auto) 1.7 K/mm3 (1.2-5.4) 09/17/20 04:00 [place] # (Auto) 2.7 K/mm3 (0.0-0.8) H 09/17/20 04:00 Eos # (Auto) 0.1 K/mm3 (0.0-0.4) 09/17/20 04:00 Baso # (Auto) 0.1 K/mm3 (0.0-0.1) 09/17/20 04:00 Add Manual Diff Complete 09/15/20 19:20 Total Counted 100 09/15/20 19:20 Seg Neutrophils % 76.9 % (40.0-70.0) H 09/17/20 04:00 Seg Neuts % (Manual) 81.0 % (40.0-70.0) H 09/15/20 19:20 Band Neutrophils % 9.0 % 09/08/20 Unknown Lymphocytes % (Manual) 9.0 % (13.4-35.0) L 09/15/20 19:20 Monocytes % (Manual) 10.0 % (0.0-7.3) H 09/15/20 19:20 Eosinophils % (Manual) 2.0 % (0.0-4.3) 09/07/20 14:00 Metamyelocytes % 2.0 % 09/08/20 Unknown Nucleated RBC % Not Reportable 09/15/20 19:20 Seg Neutrophils # 15.0 K/mm3 (1.8-7.7) H 09/17/20 04:00 Seg Neutrophils # Man 22.1 K/mm3 (1.8-7.7) H 09/15/20 19:20 Band Neutrophils # 0.0 K/mm3 09/15/20 19:20 Lymphocytes # (Manual) 2.5 K/mm3 (1.2-5.4) 09/15/20 19:20 Abs React Lymphs (Man) 0.0 K/mm3 09/15/20 19:20 Monocytes # (Manual) 2.7 K/mm3 (0.0-0.8) H 09/15/20 19:20 Eosinophils # (Manual) 0.0 K/mm3 (0.0-0.4) 09/15/20 19:20 Basophils # (Manual) 0.0 K/mm3 (0.0-0.1) 09/15/20 19:20 Metamyelocytes # 0.0 K/mm3 09/15/20 19:20 Myelocytes # 0.0 K/mm3 09/15/20 19:20 Promyelocytes # 0.0 K/mm3 09/15/20 19:20 Blast Cells # 0.0 K/mm3 09/15/20 19:20 WBC Morphology Not Reportable 09/15/20 19:20 Hypersegmented Neuts Not Reportable 09/15/20 19:20 Hyposegmented Neuts Not Reportable 09/15/20 19:20 Hypogranular Neuts Not Reportable 09/15/20 19:20 Smudge Cells Not Reportable 09/15/20 19:20 Toxic Granulation Not Reportable 09/15/20 19:20 Toxic Vacuolation Not Reportable 09/15/20 19:20 Dohle Bodies Not Reportable 09/15/20 19:20 Pelger-Huet Anomaly Not Reportable 09/15/20 19:20 Justus Rods Not Reportable 09/15/20 19:20 Platelet Estimate Not Reportable 09/15/20 19:20 Clumped Platelets Not Reportable 09/15/20 19:20 Plt Clumps, EDTA Not Reportable 09/15/20 19:20 Large Platelets Not Reportable 09/15/20 19:20 Giant Platelets Not Reportable 09/15/20 19:20 Platelet Satelliting Not Reportable 09/15/20 19:20 Plt Morphology Comment Not Reportable 09/15/20 19:20 RBC Morphology Not Reportable 09/15/20 19:20 Dimorphic RBCs Not Reportable 09/15/20 19:20 Polychromasia Not Reportable 09/15/20 19:20 Hypochromasia Few 09/15/20 19:20 Poikilocytosis Not Reportable 09/15/20 19:20 Anisocytosis Few 09/15/20 19:20 Microcytosis Few 09/15/20 19:20 Macrocytosis Not Reportable 09/15/20 19:20 Spherocytes Not Reportable 09/15/20 19:20 Pappenheimer Bodies Not Reportable 09/15/20 19:20 Sickle Cells Not Reportable 09/15/20 19:20 Target Cells Not Reportable 09/15/20 19:20 Tear Drop Cells Few 09/15/20 19:20 Ovalocytes Not Reportable 09/15/20 19:20 Helmet Cells Not Reportable 09/15/20 19:20 [place] Bodies Not Reportable 09/15/20 19:20 [place] Rings Not Reportable 09/15/20 19:20 Manjit Cells Not Reportable 09/15/20 19:20 Bite Cells Not Reportable 09/15/20 19:20 Crenated Cell Not Reportable 09/15/20 19:20 Elliptocytes Not Reportable 09/15/20 19:20 Acanthocytes (Spur) Not Reportable 09/15/20 19:20 Rouleaux Not Reportable 09/15/20 19:20 Hemoglobin C Crystals Not Reportable 09/15/20 19:20 Schistocytes Few 09/15/20 19:20 Malaria parasites Not Reportable 09/15/20 19:20 [place] Bodies Not Reportable 09/15/20 19:20 Hem Pathologist Commnt No 09/15/20 19:20 PT 16.1 Sec. (12.2-14.9) H 09/12/20 04:00 INR 1.31 (0.87-1.13) H 09/12/20 04:00 APTT 32.4 Sec. (24.2-36.6) 09/09/20 10:00 D-Dimer 8315.85 ng/mlDDU (0-234) H 09/07/20 14:00 ABG pH 7.442 (7.320-7.450) 09/14/20 03:54 POC ABG pCO2 42.3 mmHg (32.0-48.0) 09/14/20 03:54 ABG pCO2 33.4 mm Hg 09/11/20 05:40 POC ABG pO2 71.1 mmHg (83-108) L 09/14/20 03:54 ABG pO2 112.1 mm Hg (80.0-90.0) H 09/11/20 05:40 POC ABG HCO3 28.2 09/14/20 03:54 ABG HCO3 28.1 mmol/L (20.0-26.0) H 09/11/20 05:40 ABG O2 Saturation 98.4 % (95.0-99.0) 09/11/20 05:40 ABG O2 Content 11.6 (0.0-44) 09/11/20 05:40 POC ABG Base Excess 3.7 09/14/20 03:54 ABG Base Excess 5.4 mmol/L (-2.0-3.0) H 09/11/20 05:40 ABG Hemoglobin 10.3 (12.0-17.5) L 09/14/20 03:54 ABG Oxyhemoglobin 93.2 (94-98) L 09/13/20 04:47 ABG Carboxyhemoglobin 1.2 % (0.0-5.0) 09/11/20 05:40 ABG Methemoglobin 0.3 (0.0-1.5) 09/13/20 04:47 ABG Sodium 135.2 mmol/L (136.0-145.0) L 09/14/20 03:54 ABG Potassium 3.8 mmol/L (3.40-4.50) 09/14/20 03:54 ABG Chloride 98.0 mmol/L (98-107) 09/14/20 03:54 ABG Glucose 281 mg/dL (65-95) H 09/14/20 03:54 Oxyhemoglobin 96.8 % (95.0-99.0) 09/11/20 05:40 Carboxyhemoglobin 0.4 (0.5-1.5) L 09/13/20 04:47 FiO2 30 09/14/20 03:54 Sodium 143 mmol/L (137-145) 09/18/20 05:30 Potassium 3.1 mmol/L (3.6-5.0) L 09/18/20 05:30 Chloride 105.7 mmol/L (98-107) 09/18/20 05:30 Carbon Dioxide 29 mmol/L (22-30) 09/18/20 05:30 Anion Gap 11 mmol/L 09/18/20 05:30 BUN 73 mg/dL (9-20) H 09/18/20 05:30 Creatinine 2.6 mg/dL (0.8-1.3) H 09/18/20 05:30 Estimated GFR 30 ml/min 09/18/20 05:30 BUN/Creatinine Ratio 28 % 09/18/20 05:30 Glucose 154 mg/dL (75-100) H 09/18/20 05:30 POC Glucose 126 mg/dL (70-105) H 09/18/20 05:16 Lactic Acid 2.90 mmol/L (0.7-2.0) H* 09/17/20 13:52 Calcium 9.2 mg/dL (8.4-10.2) 09/18/20 05:30 Phosphorus 8.00 mg/dL (2.5-4.5) H 09/08/20 12:02 Magnesium 1.80 mg/dL (1.7-2.3) 09/08/20 12:02 Ferritin > 2000.0 ng/mL (30.0-300.0) H 09/07/20 14:00 Total Bilirubin 0.90 mg/dL (0.1-1.2) 09/17/20 04:00 Direct Bilirubin 0.5 mg/dL (0-0.2) H 09/08/20 05:00 Indirect Bilirubin 0.5 mg/dL 09/08/20 05:00 AST 64 units/L (5-40) H 09/17/20 04:00 ALT 516 units/L (7-56) H 09/17/20 04:00 Alkaline Phosphatase 87 units/L (35-129) 09/17/20 04:00 Ammonia 50.0 umol/L (25-60) 09/07/20 14:00 Lactate Dehydrogenase 882 units/L (91-180) H 09/07/20 14:00 Total Creatine Kinase 477 units/L (55-170) H 09/07/20 14:00 Troponin T 0.076 ng/mL (0.00-0.029) H 09/07/20 14:00 C-Reactive Protein 1.10 mg/dL (0.00-1.30) 09/07/20 14:00 Total Protein 5.7 g/dL (6.3-8.2) L 09/17/20 04:00 Albumin 2.8 g/dL (3.9-5) L 09/17/20 04:00 Albumin/Globulin Ratio 1.0 % 09/17/20 04:00 Triglycerides 220 mg/dL (2-149) H 09/12/20 Unknown Procalcitonin 1.52 ng/mL (<0.15) 09/17/20 13:02 TSH 2.290 mlU/mL (0.270-4.200) 09/07/20 14:00 Arterial Blood Glucose 281 mg/dL (65-95) H 09/14/20 03:54 Arterial Blood Ionized Calcium 4.6 mg/dL (4.6-5.3) 09/14/20 03:54 Urine Color Straw (Yellow) 09/07/20 13:08 Urine Turbidity Slightly-cloudy (Clear) 09/07/20 13:08 Urine pH 8.0 (5.0-7.0) H 09/07/20 13:08 Ur Specific [place] 1.006 (1.003-1.030) 09/07/20 13:08 Urine Protein 100 mg/dl mg/dL (Negative) 09/07/20 13:08 Urine Glucose (UA) Neg mg/dL (Negative) 09/07/20 13:08 Urine Ketones Neg mg/dL (Negative) 09/07/20 13:08 Urine Blood Neg (Negative) 09/07/20 13:08 Urine Nitrite Neg (Negative) 09/07/20 13:08 Urine Bilirubin Neg (Negative) 09/07/20 13:08 Urine Urobilinogen < 2.0 mg/dL (<2.0) 09/07/20 13:08 Ur Leukocyte Esterase Neg (Negative) 09/07/20 13:08 Urine WBC (Auto) 4.0 /HPF (0.0-6.0) 09/07/20 13:08 Urine RBC (Auto) 18.0 /HPF (0.0-6.0) 09/07/20 13:08 U Epithel Cells (Auto) 1.0 /HPF (0-13.0) 09/07/20 13:08 Urine Mucus Few /HPF 09/07/20 13:08 Urine Sperm 3+ /HPF (MAP MOUNTER) 09/07/20 13:08 Urine Creatinine 182.4 mg/dL (0.1-20.0) H 09/08/20 Unknown Urine Sodium 40 mmol/L 09/08/20 Unknown Salicylates < 0.3 mg/dL (2.8-20.0) L 09/07/20 14:00 Acetaminophen 5.0 ug/mL (10.0-30.0) L 09/07/20 14:00 Plasma/Serum Alcohol < 0.01 % (0-0.07) 09/07/20 14:00 Coronavirus (PCR) Positive (Negative) A 09/08/20 Unknown Hepatitis A IgM Ab Non-reactive (NonReactive) 09/07/20 14:00 Hep Bs Antigen Non-reactive (Negative) 09/07/20 14:00 Hep B Core IgM Ab Non-reactive (NonReactive) 09/07/20 14:00 Hepatitis C Antibody Non-reactive (NonReactive) 09/07/20 14:00 HIV 1&2 Antibody Rapid Non react (Non React) 09/07/20 14:34 HIV P24 Antigen Non react (Non React) 09/07/20 14:34 Blood Type O POSITIVE 09/09/20 10:00 Antibody Screen Negative 09/07/20 14:00 Mae/IV: Voiding Method Indwelling Catheter IV Catheter Type [Right Triple Lumen Cath Femoral] IV Catheter Type [Left Peripheral IV Antecubital] IV Catheter Type [Left Hand] Peripheral IV IV Catheter Type [Right Peripheral IV Antecubital] Active Medications - Current Medications Current Medications: Generic Name Dose Route Start Last Admin Trade Name Freq PRN Reason Stop Dose Admin Acetaminophen 400 mg 09/10/20 20:50 09/14/20 23:38 Acetaminophen 325 Mg/10.15 Ml Oral Liqd Unit Dose PO 400 mg Q4HR PRN Administration Non Cardiac Pain or Temp>100.5 Lipase/Protease/Amylase 1 each 09/09/20 09:40 Lipase 10,500/Protease 25,000/Amylase 43,750 (Units) Dr Armenta FEEDTUBE PRN PRN For Clogged Feeding Tube Hydrophilic Ointment 1 applic 09/07/20 13:08 Lip Therapy Vaseline TP Q2HR PRN Dry Lips Propofol 1,000 mg in 100 mls @ 4.995 mls/hr 09/08/20 20:00 09/15/20 07:00 Diprivan 10 Mg/Ml IV 0 mcg/kg/min TITR TAYLOR 0 mls/hr Titration Protocol 5 MCG/KG/MIN Sodium Chloride 100 mls @ 999 mls/hr 09/09/20 13:36 Nacl 0.9% IV JAYJAY PRN Hypotension Levetiracetam 1,500 mg/ 115 mls @ 400 mls/hr 09/11/20 10:00 09/17/20 22:10 Dextrose IV Infused BID TAYLOR Infusion Valproate Sodium 1,000 mg/ 110 mls @ 100 mls/hr 09/14/20 22:00 09/17/20 23:00 Sodium Chloride IV Infused Q12HR TAYLOR Infusion Insulin Glargine 30 units 09/14/20 22:00 09/17/20 21:52 Insulin Glargine 100 Units/Ml SUB-Q Not Given BID TAYLOR Insulin Human Lispro 0 unit 09/12/20 12:00 09/18/20 06:16 Insulin Lispro 100 Unit/Ml SUB-Q Not Given Q6HR [facility] Protocol Lansoprazole 30 mg 09/11/20 11:00 09/17/20 21:51 Lansoprazole 30 Mg Solutab FEEDTUBE 30 mg BID TAYLOR Administration Lorazepam 2 mg 09/08/20 00:14 09/14/20 13:36 Lorazepam 2 Mg/Ml Vial IV 2 mg Q4H PRN Administration Seizures Multi-Ingred Cream/Lotion/Oil/Oint 1 applic 09/07/20 13:08 Mineral Oil/Petrolatum, White Ophth Oint 3.5 Gm OU Q4HR PRN Dry Eye(s) Multivitamins 5 ml 09/09/20 12:00 09/17/20 10:28 Multivitamins 5 Ml Oral Liquid PO 5 ml QDAY TAYLOR Administration Ondansetron HCl 4 mg 09/07/20 17:55 09/18/20 06:17 Ondansetron 4 Mg/2 Ml Inj IV 4 mg Q8H PRN Administration Nausea And Vomiting Senna/Docusate Sodium 2 tab 09/13/20 11:00 09/17/20 21:51 Sennosides/Docusate Sodium 8.6/50 Mg Tab PO 2 tab BID TAYLOR Administration Simple Syrup 15 ml 09/09/20 09:40 09/17/20 17:43 Simple Syrup 15 Ml FEEDTUBE 15 ml PRN PRN Administration Hypoglycemia Simple Syrup 30 ml 09/09/20 09:40 Simple Syrup 15 Ml FEEDTUBE PRN PRN Hypoglycemia Sodium Bicarbonate 325 mg 09/09/20 09:40 Sodium Bicarbonate 325 Mg Tab FEEDTUBE PRN PRN For Clogged Feeding Tube Sodium Chloride 10 ml 09/07/20 22:00 09/17/20 21:55 Sodium Chloride 0.9% 10 Ml Flush Syringe IV 10 ml BID TAYLOR Administration Sodium Chloride 10 ml 09/07/20 17:55 Sodium Chloride 0.9% 10 Ml Flush Syringe IV PRN PRN LINE FLUSH Nutrition/Malnutrition Assess - Dietary Evaluation Nutrition/Malnutrition Findings: Nutrition Notes Start: 09/08/20 12:01 Freq: Status: Active Protocol: Document 09/15/20 10:36 EN (Rec: 09/15/20 10:43 EN [id number]) Co-Sign 09/15/20 10:36 Nutrition Notes Initial or Follow up Reassessment Current Diagnosis Acute Kidney Injury Other Pertinent Diagnosis acute renal failure, cardiac arrest, possible seizures, COVID(+), AMS Current Diet Nepro 1.8 at 45 ml/hr Labs/Tests POC BG 271 Pertinent Medications Lantus Humalog Height 6 ft Weight 166.5 kg [place] Body Weight (kg) 80.90 BMI 49.8 Weight Status Morbidly Obese Subjective/Other Information F/u for TF tolerance and BM. Pt has not yet had a BM. Per RN, TF infusing at goal and tolerated well Percent of energy/protein needs met: 100%/43% Burn Absent Trauma Absent GI Symptoms Constipation Current % PO Negligible Minimum of two criteria No physical signs of malnutrition #1 Nutrition Diagnosis Inadequate oral intake Diagnosis Progress(for reassessment Continues documentation) Is patient on ventilator? Yes Is Patient Ambulatory and/or Out of Bed No REE-([place]-St. Jeor-confined to bed) 2995.752 Kcal/Kg value to use for calculation 12 Approximate Energy Requirements Using 1998 kcal/Kg Calculation Used for Recommendations Kcal/kg Additional Notes PRO needs: >202g (> 2.5g/kg IBW 80.9kg) Fluid needs: 1 mL/kcal or per MD Nutrition Intervention Change Diet Order: TF Nutrition Support: Nepro 1.8 at 45 mL/hr Flush 200 mL q4h Kcal 1,944 Protein (gm) 87 Fluid (mL) 785 Goal #1 Meet at least 100% of energy needs and meet protein needs as best as possible Anticipated Discharge Needs: Unable to determine Follow-Up By: 09/19/20 Additional Comments F/u for TF tolerance and BM
[2020-09-18] MEDS: levETIRAcetam 1,500 MG in DEXTROSE 5% IN WATER 100 ML IV SCH ×2 (10:10→21:20)
[2020-09-18] MEDS: VALPROATE SODIUM 1,000 MG in SODIUM CHLORIDE 0.9% 100 ML IV SCH ×2 (10:10→21:20)
[2020-09-18] MEDS: SENNOSIDES/DOCUSATE SODIUM 8.6/50 MG TAB PO SCH ×2 (10:11→21:21)
[2020-09-18] MEDS: MULTIVITAMINS 5 ML ORAL LIQUID PO SCH (10:11)
[2020-09-18] MEDS: LANSOPRAZOLE 30 MG SOLUTAB FEEDTUBE SCH ×2 (10:11→21:20)
--- NOTE | 2020-09-18 10:11 | Progress Note ---
Assessment and Plan Impression: * Nonoliguric RYAN secondary to ATN * Severe hyperkalemia - resolved * COVID 19 PNA * s/p OOH cardiac arrest * Acute hypoxic respiratory failure * Seizure activity * Anemia Plan: * Patient is s/p emergent HD - 09/08 * Continue MWF * Check labs daily * Strict I/O * Monitor for renal recovery * Keep MAP > 65 * Vent management per CCM * Steroids per primary team/ID * Dose medications for renal function * Avoid potential nephrotoxins * Prognosis is guarded Subjective Date of service: 09/18/20 Principal diagnosis: Abnormal LFTs, s/p cardiac arrest, acute kidney injury with ATN Interval history: resting in bed today Objective - Exam Narrative Exam: Deferred for PPE conservation and to prevent spread of infection - Vital Signs Vital signs: Vital Signs - 12hr 09/17/20 09/17/20 09/18/20 22:44 23:00 00:00 Temperature 98.7 F Pulse Rate 61 60 61 Respiratory 15 20 23 Rate Blood Pressure 97/64 97/64 143/82 O2 Sat by Pulse 100 100 100 Oximetry 09/18/20 09/18/20 09/18/20 01:00 02:00 03:00 Temperature Pulse Rate 60 62 63 Respiratory 24 19 17 Rate Blood Pressure 136/82 100/64 114/75 O2 Sat by Pulse 100 100 100 Oximetry 09/18/20 09/18/20 09/18/20 04:00 05:00 06:00 Temperature 98.1 F Pulse Rate 64 65 69 Respiratory 30 H 30 H 30 H Rate Blood Pressure 125/82 140/82 134/86 O2 Sat by Pulse 100 100 100 Oximetry 09/18/20 09/18/20 09/18/20 07:00 08:00 09:00 Temperature 98.5 F Pulse Rate 65 60 63 Respiratory 30 H 30 H 31 H Rate Blood Pressure 133/73 142/68 140/78 O2 Sat by Pulse 100 100 100 Oximetry - Lab 09/18/20 05:30 09/18/20 05:30 Most recent lab results ABG pH 7.442 (7.320-7.450) 09/14/20 03:54 ABG pCO2 33.4 mm Hg 09/11/20 05:40 ABG pO2 112.1 mm Hg (80.0-90.0) H 09/11/20 05:40 ABG HCO3 28.1 mmol/L (20.0-26.0) H 09/11/20 05:40 ABG O2 Saturation 98.4 % (95.0-99.0) 09/11/20 05:40 Calcium 9.2 mg/dL (8.4-10.2) 09/18/20 05:30 Phosphorus 8.00 mg/dL (2.5-4.5) H 09/08/20 12:02 Magnesium 1.80 mg/dL (1.7-2.3) 09/08/20 12:02 Urine Creatinine 182.4 mg/dL (0.1-20.0) H 09/08/20 Unknown Urine Sodium 40 mmol/L 09/08/20 Unknown Medications & Allergies - Medications Allergies/Adverse Reactions: Allergies Unable to Assess Allergy (Verified 09/07/20 13:43) intubated Home Medications: Home Medications Medication Instructions Recorded Confirmed Last Taken Type Albuterol Sulfate 60 mcg IH PRN 09/11/20 09/11/20 Unknown History Cholecalciferol (Vitamin D3) 25 tab PO DAILY 09/11/20 09/11/20 Unknown History Cozaar 25 tab PO DAILY 09/11/20 09/11/20 Unknown History HumaLOG 14 unit SQ AC 09/11/20 09/11/20 Unknown History Hydralazine HCl 50 tab PO TID 09/11/20 09/11/20 Unknown History Isosorbide Dinitrate 30 mg PO DAILY 09/11/20 09/11/20 Unknown History Lantus VIAL 54 units SQ HS 09/11/20 09/11/20 Unknown History Lasix 20 tab PO DAILY 09/11/20 09/11/20 Unknown History Nifedipine 30 tab PO DAILY 09/11/20 09/11/20 Unknown History Active Medications: Generic Name Dose Route Start Last Admin Trade Name Freq PRN Reason Stop Dose Admin Acetaminophen 400 mg 09/10/20 20:50 09/14/20 23:38 Acetaminophen 325 Mg/10.15 Ml Oral Liqd Unit Dose PO 400 mg Q4HR PRN Administration Non Cardiac Pain or Temp>100.5 Lipase/Protease/Amylase 1 each 09/09/20 09:40 Lipase 10,500/Protease 25,000/Amylase 43,750 (Units) Dr Armenta FEEDTUBE PRN PRN For Clogged Feeding Tube Hydrophilic Ointment 1 applic 09/07/20 13:08 Lip Therapy Vaseline TP Q2HR PRN Dry Lips Propofol 1,000 mg in 100 mls @ 4.995 mls/hr 09/08/20 20:00 09/15/20 07:00 Diprivan 10 Mg/Ml IV 0 mcg/kg/min TITR TAYLOR 0 mls/hr Titration Protocol 5 MCG/KG/MIN Sodium Chloride 100 mls @ 999 mls/hr 09/09/20 13:36 Nacl 0.9% IV JAYJAY PRN Hypotension Levetiracetam 1,500 mg/ 115 mls @ 400 mls/hr 09/11/20 10:00 09/17/20 22:10 Dextrose IV Infused BID TAYLOR Infusion Valproate Sodium 1,000 mg/ 110 mls @ 100 mls/hr 09/14/20 22:00 09/17/20 23:00 Sodium Chloride IV Infused Q12HR TAYLOR Infusion Insulin Glargine 30 units 09/14/20 22:00 09/17/20 21:52 Insulin Glargine 100 Units/Ml SUB-Q Not Given BID [facility] Insulin Human Lispro 0 unit 09/12/20 12:00 09/18/20 06:16 Insulin Lispro 100 Unit/Ml SUB-Q Not Given Q6HR [facility] Protocol Lansoprazole 30 mg 09/11/20 11:00 09/17/20 21:51 Lansoprazole 30 Mg Solutab FEEDTUBE 30 mg BID TAYLOR Administration Lorazepam 2 mg 09/08/20 00:14 09/14/20 13:36 Lorazepam 2 Mg/Ml Vial IV 2 mg Q4H PRN Administration Seizures Multi-Ingred Cream/Lotion/Oil/Oint 1 applic 09/07/20 13:08 Mineral Oil/Petrolatum, White Ophth Oint 3.5 Gm OU Q4HR PRN Dry Eye(s) Multivitamins 5 ml 09/09/20 12:00 09/17/20 10:28 Multivitamins 5 Ml Oral Liquid PO 5 ml QDAY TAYLOR Administration Ondansetron HCl 4 mg 09/07/20 17:55 09/18/20 06:17 Ondansetron 4 Mg/2 Ml Inj IV 4 mg Q8H PRN Administration Nausea And Vomiting Senna/Docusate Sodium 2 tab 09/13/20 11:00 09/17/20 21:51 Sennosides/Docusate Sodium 8.6/50 Mg Tab PO 2 tab BID TAYLOR Administration Simple Syrup 15 ml 09/09/20 09:40 09/17/20 17:43 Simple Syrup 15 Ml FEEDTUBE 15 ml PRN PRN Administration Hypoglycemia Simple Syrup 30 ml 09/09/20 09:40 Simple Syrup 15 Ml FEEDTUBE PRN PRN Hypoglycemia Sodium Bicarbonate 325 mg 09/09/20 09:40 Sodium Bicarbonate 325 Mg Tab FEEDTUBE PRN PRN For Clogged Feeding Tube Sodium Chloride 10 ml 09/07/20 22:00 09/17/20 21:55 Sodium Chloride 0.9% 10 Ml Flush Syringe IV 10 ml BID TAYLOR Administration Sodium Chloride 10 ml 09/07/20 17:55 Sodium Chloride 0.9% 10 Ml Flush Syringe IV PRN PRN LINE FLUSH
[2020-09-18] MEDS: INSULIN GLARGINE 100 UNITS/ML SUB-Q SCH (10:12)
--- NOTE | 2020-09-18 11:35 | Progress Note ---
Assessment and Plan 65 y/o male with out of hospital cardiac arrest now sedated on ativan for possible seizures. 09/18/20: Unable to fit in MRI. Repeat CT showed improvement in edema but no clinical response is seen with this. Will continue Antiepileptic therapy. If wishes to proceed, will need trach and peg. Not sure if he would be candidate for PEG given his size but will ask surgery. Will need repeat COVID test prior to surgery. 09/15/20: Order MRI brain without contrast. Per surgery this will help to add more in regards to prognosis. Continue Valproic Acid and Keppra for seizure therapy. HD going now per renal. Overall prognosis remains guarded to poor. Please reach out to over the weekend to update her as I am not rounding t his weekend, ,my partner will be covering. 09/14/20: Will load with valproic acid and then start to wean Diprovan. Spoke with today, very tearful on the phone. Explained to that Neurosurgery would come and eval tonight but not a candidate for the other therapies she asked about since his edema is related to anoxic injury. Very very poor prognosis. 09/13/20: Per current neuro available, the neurologist from yesterday will call today. EEG is nonspecific but given CT of head findings consistent with anoxic encephalopathy, brain injury. As stated in neuro note, overall prognosis is very poor. Will continue to wean down diprovan to see if patient's seizures have been controlled with current Keppra dosing. Will call once she has spoken to neuro to get her thoughts on the next steps. (trach and peg, vs hospice as well as code status). Very very poor prognosis. 09/12/20: Long discussion with this am. Given recent head CT results, prognosis for full functional recovery is very POOR and neurology agrees. They will see in consult today. I have spoken to about AND and she is going to discuss with the family. The neurologist has stated they will reach out to the today. I am going to attempt to wean the ativan off and then start to wean the diprovan as long as no seizure activity is seen. Patient is now bradycardic, likely secondary to neuro state. I hope that he is not about to herniate. Patient is also like in Neurogenic DI given large urine out put volume. Very very poor prognosis. Continue supportive measures. 09/11/20: Will increase Keppra to 1500 BID given patient size. Continue Diprovan drip. Getting EEG today. HD per renal. Needs neurology consult however if patient is in status, needs to be transferred to an institution that can provide continuous EEG monitoring. Overll prognosis is very guarded to poor. Have not spoken to yet today. 09/10/20: Loaded with keppra and will start on Keppra BID. Needs EEG on therapy as well as OFF. If patient is in status, needs transfer to a location with continuous EEG capabilities. FiO2 has been weaned back down and is now at 60%, sats in the high 90's. HD per renal. Coags improving. Overall prognosis is guarded to poor. Spoke with on phone yesterday. Consult neurology tomorrow as not available on the weekend. Suggest checking for antibodies as he may be a candidate for convalsescent plasma. Per the , he was diagnosed with COVID on and spent 6 days inpatient at the [place]. Remains positive now with multisystem organ failure. Explained to that outcome may not be good but need more time to assess. 09/09/20: EEG ordered on yesterday but not done. If done not read. Continue diprovan for now until EEG can be done or interpreted. State Coags but given his oozing from his vascath, will give Vitamin K and FFP. Patient is covid positive so agree with steroids. Not a candidate for remdesivir. Need to check for antibodies, may be a candidate for convalescent plasma. HD per renal. Given improvement in pH will stop bicarb drip. Feed patient. 1. Stop sedation 2. EEG 3. Needs neuro consult. 4. Art line placement 5. Stat repeat of labs, if renal function is truly that bad, will need renal consult. 6. Follow up COVID testing 7. Likely needs echo 8. Will place on bicarb drip. CCT 31 minutes. Subjective Date of service: 09/18/20 Principal diagnosis: Abnormal LFTs, s/p cardiac arrest, acute kidney injury with ATN Interval history: No acute events. Neurosurgery saw the patient on . Head CT showed improved edema. Still not responsive. Seizures have stopped. Off diprovan. Not sure if has been updated this weekend. Objective Vital Signs - 12hr 09/18/20 09/18/20 09/18/20 00:00 01:00 02:00 Temperature 98.7 F Pulse Rate 61 60 62 Respiratory 23 24 19 Rate Blood Pressure 143/82 136/82 100/64 O2 Sat by Pulse 100 100 100 Oximetry 09/18/20 09/18/20 09/18/20 03:00 04:00 05:00 Temperature 98.1 F Pulse Rate 63 64 65 Respiratory 17 30 H 30 H Rate Blood Pressure 114/75 125/82 140/82 O2 Sat by Pulse 100 100 100 Oximetry 09/18/20 09/18/20 09/18/20 06:00 07:00 08:00 Temperature 98.5 F Pulse Rate 69 65 60 Respiratory 30 H 30 H 30 H Rate Blood Pressure 134/86 133/73 142/68 O2 Sat by Pulse 100 100 100 Oximetry 09/18/20 09:00 Temperature Pulse Rate 63 Respiratory 31 H Rate Blood Pressure 140/78 O2 Sat by Pulse 100 Oximetry Constitutional: comatose, other (morbidly obese) Eyes: non-icteric ENT: other (orally intubated and sedated) Neck: supple Effort: normal Ascultation: Bilateral: diminished breath sounds Percussion: Bilateral: not dull Cardiovascular: other (bradycardic) Gastrointestinal: soft CBC and BMP: 09/18/20 05:30 09/18/20 05:30 ABG, PT/INR, D-dimer: ABG ABG pH 7.442 (7.320-7.450) 09/14/20 03:54 POC ABG pCO2 42.3 mmHg (32.0-48.0) 09/14/20 03:54 ABG pCO2 33.4 mm Hg 09/11/20 05:40 POC ABG pO2 71.1 mmHg (83-108) L 09/14/20 03:54 ABG pO2 112.1 mm Hg (80.0-90.0) H 09/11/20 05:40 POC ABG HCO3 28.2 09/14/20 03:54 ABG O2 Saturation 98.4 % (95.0-99.0) 09/11/20 05:40 PT/INR, D-dimer PT 16.1 Sec. (12.2-14.9) H 09/12/20 04:00 INR 1.31 (0.87-1.13) H 09/12/20 04:00 D-Dimer 8315.85 ng/mlDDU (0-234) H 09/07/20 14:00 Abnormal lab findings: Abnormal Labs 09/07/20 09/07/20 09/07/20 13:08 14:00 14:00 WBC 15.7 H RBC Hgb 10.2 L Hct 32.5 L MCHC 31 L RDW 17.5 H Lymph % (Auto) [place] % (Auto) Lymph # (Auto) [place] # (Auto) Seg Neutrophils % Seg Neuts % (Manual) 72.0 H Lymphocytes % (Manual) Monocytes % (Manual) 8.0 H Nucleated RBC % Seg Neutrophils # Seg Neutrophils # Man 11.3 H Lymphocytes # (Manual) Monocytes # (Manual) 1.3 H PT INR D-Dimer 8315.85 H ABG pH POC ABG pCO2 POC ABG pO2 ABG pO2 ABG HCO3 ABG Base Excess ABG Hemoglobin ABG Oxyhemoglobin ABG Sodium ABG Potassium ABG Chloride ABG Glucose Carboxyhemoglobin Sodium Potassium Chloride Carbon Dioxide BUN Creatinine Glucose POC Glucose Lactic Acid Calcium Phosphorus Ferritin Total Bilirubin Direct Bilirubin AST ALT Lactate Dehydrogenase Total Creatine Kinase Troponin T Total Protein Albumin Triglycerides Arterial Blood Glucose Arterial Blood Ionized Calcium Urine pH 8.0 H Urine Creatinine Salicylates Acetaminophen Coronavirus (PCR) 09/07/20 09/07/20 09/07/20 14:00 14:00 14:00 WBC RBC Hgb Hct MCHC RDW Lymph % (Auto) [place] % (Auto) Lymph # (Auto) [place] # (Auto) Seg Neutrophils % Seg Neuts % (Manual) Lymphocytes % (Manual) Monocytes % (Manual) Nucleated RBC % Seg Neutrophils # Seg Neutrophils # Man Lymphocytes # (Manual) Monocytes # (Manual) PT INR D-Dimer ABG pH POC ABG pCO2 POC ABG pO2 ABG pO2 ABG HCO3 ABG Base Excess ABG Hemoglobin ABG Oxyhemoglobin ABG Sodium ABG Potassium ABG Chloride ABG Glucose Carboxyhemoglobin Sodium Potassium Chloride Carbon Dioxide BUN Creatinine Glucose POC Glucose Lactic Acid 4.30 H* Calcium Phosphorus Ferritin > 2000.0 H Total Bilirubin Direct Bilirubin AST ALT Lactate Dehydrogenase 882 H Total Creatine Kinase 477 H Troponin T 0.076 H Total Protein Albumin Triglycerides Arterial Blood Glucose Arterial Blood Ionized Calcium Urine pH Urine Creatinine Salicylates Acetaminophen Coronavirus (PCR) 09/07/20 09/07/20 09/07/20 14:00 14:00 14:00 WBC RBC Hgb Hct MCHC RDW Lymph % (Auto) [place] % (Auto) Lymph # (Auto) [place] # (Auto) Seg Neutrophils % Seg Neuts % (Manual) Lymphocytes % (Manual) Monocytes % (Manual) Nucleated RBC % Seg Neutrophils # Seg Neutrophils # Man Lymphocytes # (Manual) Monocytes # (Manual) PT INR D-Dimer ABG pH POC ABG pCO2 POC ABG pO2 ABG pO2 ABG HCO3 ABG Base Excess ABG Hemoglobin ABG Oxyhemoglobin ABG Sodium ABG Potassium ABG Chloride ABG Glucose Carboxyhemoglobin Sodium Potassium Chloride Carbon Dioxide BUN Creatinine 1.8 H Glucose POC Glucose Lactic Acid Calcium Phosphorus Ferritin Total Bilirubin Direct Bilirubin AST 310 H ALT 339 H Lactate Dehydrogenase Total Creatine Kinase Troponin T Total Protein Albumin 3.6 L Triglycerides Arterial Blood Glucose Arterial Blood Ionized Calcium Urine pH Urine Creatinine Salicylates < 0.3 L Acetaminophen 5.0 L Coronavirus (PCR) 09/07/20 09/08/20 09/08/20 14:26 04:00 04:17 WBC RBC Hgb Hct MCHC RDW Lymph % (Auto) [place] % (Auto) Lymph # (Auto) [place] # (Auto) Seg Neutrophils % Seg Neuts % (Manual) Lymphocytes % (Manual) Monocytes % (Manual) Nucleated RBC % Seg Neutrophils # Seg Neutrophils # Man Lymphocytes # (Manual) Monocytes # (Manual) PT INR D-Dimer ABG pH 7.037 L 7.095 L POC ABG pCO2 92.4 H 68.0 H POC ABG pO2 130.8 H 43.5 L ABG pO2 ABG HCO3 ABG Base Excess ABG Hemoglobin 11.3 L 10.6 L ABG Oxyhemoglobin 70.8 L ABG Sodium ABG Potassium 7.0 H ABG Chloride 108.0 H ABG Glucose Carboxyhemoglobin 0.3 L Sodium Potassium 8.4 H* D Chloride Carbon Dioxide 17 L D BUN 38 H Creatinine 3.9 H D Glucose POC Glucose Lactic Acid Calcium 7.7 L D Phosphorus Ferritin Total Bilirubin Direct Bilirubin AST ALT Lactate Dehydrogenase Total Creatine Kinase Troponin T Total Protein Albumin Triglycerides Arterial Blood Glucose Arterial Blood Ionized Calcium 4.5 L Urine pH Urine Creatinine Salicylates Acetaminophen Coronavirus (PCR) 01/29/21 01/29/21 01/29/21 05:00 05:25 12:02 WBC RBC Hgb Hct MCHC RDW Lymph % (Auto) [place] % (Auto) Lymph # (Auto) [place] # (Auto) Seg Neutrophils % Seg Neuts % (Manual) Lymphocytes % (Manual) Monocytes % (Manual) Nucleated RBC % Seg Neutrophils # Seg Neutrophils # Man Lymphocytes # (Manual) Monocytes # (Manual) PT INR D-Dimer ABG pH 7.088 L POC ABG pCO2 69.1 H POC ABG pO2 35.2 L ABG pO2 ABG HCO3 ABG Base Excess ABG Hemoglobin 10.9 L ABG Oxyhemoglobin 57.1 L ABG Sodium ABG Potassium 7.0 H ABG Chloride 108.0 H ABG Glucose Carboxyhemoglobin 0.4 L Sodium Potassium 8.1 H* Chloride Carbon Dioxide 17 L BUN 38 H Creatinine 3.7 H Glucose POC Glucose Lactic Acid Calcium 8.0 L Phosphorus 8.00 H Ferritin Total Bilirubin Direct Bilirubin 0.5 H AST 3696 H ALT 3331 H Lactate Dehydrogenase Total Creatine Kinase Troponin T Total Protein Albumin 3.5 L Triglycerides Arterial Blood Glucose Arterial Blood Ionized Calcium 4.4 L Urine pH Urine Creatinine Salicylates Acetaminophen Coronavirus (PCR) 09/08/20 09/08/20 09/08/20 16:31 22:36 Unknown WBC RBC Hgb Hct MCHC RDW Lymph % (Auto) [place] % (Auto) Lymph # (Auto) [place] # (Auto) Seg Neutrophils % Seg Neuts % (Manual) Lymphocytes % (Manual) Monocytes % (Manual) Nucleated RBC % Seg Neutrophils # Seg Neutrophils # Man Lymphocytes # (Manual) Monocytes # (Manual) PT INR D-Dimer ABG pH POC ABG pCO2 POC ABG pO2 ABG pO2 ABG HCO3 ABG Base Excess ABG Hemoglobin ABG Oxyhemoglobin ABG Sodium ABG Potassium ABG Chloride ABG Glucose Carboxyhemoglobin Sodium Potassium 5.3 H D Chloride Carbon Dioxide BUN Creatinine Glucose POC Glucose 158 H Lactic Acid Calcium Phosphorus Ferritin Total Bilirubin Direct Bilirubin AST ALT Lactate Dehydrogenase Total Creatine Kinase Troponin T Total Protein Albumin Triglycerides Arterial Blood Glucose Arterial Blood Ionized Calcium Urine pH Urine Creatinine Salicylates Acetaminophen Coronavirus (PCR) Positive A 09/08/20 09/08/20 09/08/20 Unknown Unknown Unknown WBC 18.4 H RBC Hgb 10.1 L Hct 32.0 L MCHC RDW 18.2 H Lymph % (Auto) [place] % (Auto) Lymph # (Auto) [place] # (Auto) Seg Neutrophils % Seg Neuts % (Manual) 81.0 H Lymphocytes % (Manual) 2.0 L Monocytes % (Manual) Nucleated RBC % 1.0 H Seg Neutrophils # Seg Neutrophils # Man 14.9 H Lymphocytes # (Manual) 0.4 L Monocytes # (Manual) 1.1 H PT 21.2 H INR 1.83 H D-Dimer ABG pH POC ABG pCO2 POC ABG pO2 ABG pO2 ABG HCO3 ABG Base Excess ABG Hemoglobin ABG Oxyhemoglobin ABG Sodium ABG Potassium ABG Chloride ABG Glucose Carboxyhemoglobin Sodium Potassium Chloride Carbon Dioxide BUN Creatinine Glucose POC Glucose Lactic Acid Calcium Phosphorus Ferritin Total Bilirubin Direct Bilirubin AST ALT Lactate Dehydrogenase Total Creatine Kinase Troponin T Total Protein Albumin Triglycerides Arterial Blood Glucose Arterial Blood Ionized Calcium Urine pH Urine Creatinine 182.4 H Salicylates Acetaminophen Coronavirus (PCR) 09/09/20 09/09/20 09/09/20 03:14 04:20 04:20 WBC 16.3 H RBC 3.12 L Hgb 8.6 L Hct 26.8 L MCHC RDW 18.2 H Lymph % (Auto) 6.3 L [place] % (Auto) 8.8 H Lymph # (Auto) 1.0 L [place] # (Auto) 1.4 H Seg Neutrophils % 84.5 H Seg Neuts % (Manual) Lymphocytes % (Manual) Monocytes % (Manual) Nucleated RBC % Seg Neutrophils # 13.7 H Seg Neutrophils # Man Lymphocytes # (Manual) Monocytes # (Manual) PT INR D-Dimer ABG pH POC ABG pCO2 POC ABG pO2 148.5 H ABG pO2 ABG HCO3 ABG Base Excess ABG Hemoglobin 9.4 L ABG Oxyhemoglobin 98.8 H ABG Sodium 134.8 L ABG Potassium 5.0 H ABG Chloride ABG Glucose 222 H Carboxyhemoglobin 0.1 L Sodium Potassium 5.2 H Chloride Carbon Dioxide BUN 47 H Creatinine 4.3 H Glucose 211 H POC Glucose Lactic Acid Calcium 7.4 L Phosphorus Ferritin Total Bilirubin Direct Bilirubin AST 03749 H ALT 6206 H Lactate Dehydrogenase Total Creatine Kinase Troponin T Total Protein 5.6 L Albumin 3.0 L Triglycerides Arterial Blood Glucose 222 H Arterial Blood Ionized Calcium 3.8 L Urine pH Urine Creatinine Salicylates Acetaminophen Coronavirus (PCR) 09/09/20 09/09/20 09/09/20 10:00 12:23 18:22 WBC RBC Hgb Hct MCHC RDW Lymph % (Auto) [place] % (Auto) Lymph # (Auto) [place] # (Auto) Seg Neutrophils % Seg Neuts % (Manual) Lymphocytes % (Manual) Monocytes % (Manual) Nucleated RBC % Seg Neutrophils # Seg Neutrophils # Man Lymphocytes # (Manual) Monocytes # (Manual) PT 21.7 H INR 1.90 H D-Dimer ABG pH POC ABG pCO2 POC ABG pO2 ABG pO2 ABG HCO3 ABG Base Excess ABG Hemoglobin ABG Oxyhemoglobin ABG Sodium ABG Potassium ABG Chloride ABG Glucose Carboxyhemoglobin Sodium Potassium Chloride Carbon Dioxide BUN Creatinine Glucose POC Glucose 216 H 211 H Lactic Acid Calcium Phosphorus Ferritin Total Bilirubin Direct Bilirubin AST ALT Lactate Dehydrogenase Total Creatine Kinase Troponin T Total Protein Albumin Triglycerides Arterial Blood Glucose Arterial Blood Ionized Calcium Urine pH Urine Creatinine Salicylates Acetaminophen Coronavirus (PCR) 09/10/20 09/10/20 09/10/20 04:00 04:05 04:05 WBC 15.0 H RBC 3.06 L Hgb 8.6 L Hct 25.8 L MCHC RDW 18.0 H Lymph % (Auto) [place] % (Auto) Lymph # (Auto) [place] # (Auto) Seg Neutrophils % Seg Neuts % (Manual) 86.0 H Lymphocytes % (Manual) 6.0 L Monocytes % (Manual) 8.0 H Nucleated RBC % Seg Neutrophils # Seg Neutrophils # Man 12.9 H Lymphocytes # (Manual) 0.9 L Monocytes # (Manual) 1.2 H PT 18.4 H INR 1.54 H D-Dimer ABG pH POC ABG pCO2 POC ABG pO2 ABG pO2 ABG HCO3 ABG Base Excess ABG Hemoglobin ABG Oxyhemoglobin ABG Sodium ABG Potassium ABG Chloride ABG Glucose Carboxyhemoglobin Sodium 134 L Potassium Chloride 93.7 L Carbon Dioxide BUN 46 H Creatinine 3.6 H Glucose 275 H POC Glucose Lactic Acid Calcium 7.7 L Phosphorus Ferritin Total Bilirubin 1.30 H Direct Bilirubin AST 5899 H ALT 6440 H Lactate Dehydrogenase Total Creatine Kinase Troponin T Total Protein 5.9 L Albumin 3.3 L Triglycerides Arterial Blood Glucose Arterial Blood Ionized Calcium Urine pH Urine Creatinine Salicylates Acetaminophen Coronavirus (PCR) 09/10/20 09/10/20 09/10/20 04:35 12:06 17:42 WBC RBC Hgb Hct MCHC RDW Lymph % (Auto) [place] % (Auto) Lymph # (Auto) [place] # (Auto) Seg Neutrophils % Seg Neuts % (Manual) Lymphocytes % (Manual) Monocytes % (Manual) Nucleated RBC % Seg Neutrophils # Seg Neutrophils # Man Lymphocytes # (Manual) Monocytes # (Manual) PT INR D-Dimer ABG pH 7.464 H POC ABG pCO2 POC ABG pO2 ABG pO2 ABG HCO3 ABG Base Excess ABG Hemoglobin 9.9 L ABG Oxyhemoglobin ABG Sodium 131.6 L ABG Potassium ABG Chloride 97.0 L ABG Glucose 281 H Carboxyhemoglobin 0.1 L Sodium Potassium Chloride Carbon Dioxide BUN Creatinine Glucose POC Glucose 298 H 340 H Lactic Acid Calcium Phosphorus Ferritin Total Bilirubin Direct Bilirubin AST ALT Lactate Dehydrogenase Total Creatine Kinase Troponin T Total Protein Albumin Triglycerides Arterial Blood Glucose 281 H Arterial Blood Ionized Calcium 3.9 L Urine pH Urine Creatinine Salicylates Acetaminophen Coronavirus (PCR) 09/10/20 09/11/20 09/11/20 23:07 04:44 05:17 WBC RBC Hgb Hct MCHC RDW Lymph % (Auto) [place] % (Auto) Lymph # (Auto) [place] # (Auto) Seg Neutrophils % Seg Neuts % (Manual) Lymphocytes % (Manual) Monocytes % (Manual) Nucleated RBC % Seg Neutrophils # Seg Neutrophils # Man Lymphocytes # (Manual) Monocytes # (Manual) PT 16.9 H INR 1.39 H D-Dimer ABG pH POC ABG pCO2 POC ABG pO2 ABG pO2 ABG HCO3 ABG Base Excess ABG Hemoglobin ABG Oxyhemoglobin ABG Sodium ABG Potassium ABG Chloride ABG Glucose Carboxyhemoglobin Sodium Potassium Chloride Carbon Dioxide BUN Creatinine Glucose POC Glucose 367 H 416 H Lactic Acid Calcium Phosphorus Ferritin Total Bilirubin Direct Bilirubin AST ALT Lactate Dehydrogenase Total Creatine Kinase Troponin T Total Protein Albumin Triglycerides Arterial Blood Glucose Arterial Blood Ionized Calcium Urine pH Urine Creatinine Salicylates Acetaminophen Coronavirus (PCR) 09/11/20 09/11/20 09/11/20 05:40 12:01 17:50 WBC RBC Hgb Hct MCHC RDW Lymph % (Auto) [place] % (Auto) Lymph # (Auto) [place] # (Auto) Seg Neutrophils % Seg Neuts % (Manual) Lymphocytes % (Manual) Monocytes % (Manual) Nucleated RBC % Seg Neutrophils # Seg Neutrophils # Man Lymphocytes # (Manual) Monocytes # (Manual) PT INR D-Dimer ABG pH 7.543 H POC ABG pCO2 POC ABG pO2 ABG pO2 112.1 H ABG HCO3 28.1 H ABG Base Excess 5.4 H ABG Hemoglobin 8.4 L ABG Oxyhemoglobin ABG Sodium ABG Potassium ABG Chloride ABG Glucose Carboxyhemoglobin Sodium Potassium Chloride Carbon Dioxide BUN Creatinine Glucose POC Glucose 418 H 404 H Lactic Acid Calcium Phosphorus Ferritin Total Bilirubin Direct Bilirubin AST ALT Lactate Dehydrogenase Total Creatine Kinase Troponin T Total Protein Albumin Triglycerides Arterial Blood Glucose Arterial Blood Ionized Calcium Urine pH Urine Creatinine Salicylates Acetaminophen Coronavirus (PCR) 09/11/20 09/11/20 09/12/20 23:10 23:43 03:15 WBC RBC Hgb Hct MCHC RDW Lymph % (Auto) [place] % (Auto) Lymph # (Auto) [place] # (Auto) Seg Neutrophils % Seg Neuts % (Manual) Lymphocytes % (Manual) Monocytes % (Manual) Nucleated RBC % Seg Neutrophils # Seg Neutrophils # Man Lymphocytes # (Manual) Monocytes # (Manual) PT INR D-Dimer ABG pH POC ABG pCO2 POC ABG pO2 ABG pO2 ABG HCO3 ABG Base Excess ABG Hemoglobin ABG Oxyhemoglobin ABG Sodium ABG Potassium ABG Chloride ABG Glucose Carboxyhemoglobin Sodium 135 L Potassium Chloride 92.3 L Carbon Dioxide BUN 62 H Creatinine 3.7 H Glucose 406 H POC Glucose 372 H 359 H Lactic Acid Calcium Phosphorus Ferritin Total Bilirubin Direct Bilirubin AST 687 H ALT 3701 H Lactate Dehydrogenase Total Creatine Kinase Troponin T Total Protein 5.8 L Albumin 3.1 L Triglycerides Arterial Blood Glucose Arterial Blood Ionized Calcium Urine pH Urine Creatinine Salicylates Acetaminophen Coronavirus (PCR) 09/12/20 09/12/20 09/12/20 03:18 04:00 04:00 WBC 13.7 H RBC 3.30 L Hgb 9.3 L Hct 27.6 L MCHC RDW 17.5 H Lymph % (Auto) [place] % (Auto) Lymph # (Auto) [place] # (Auto) Seg Neutrophils % Seg Neuts % (Manual) 76.0 H Lymphocytes % (Manual) 11.0 L Monocytes % (Manual) 13.0 H Nucleated RBC % Seg Neutrophils # Seg Neutrophils # Man 10.4 H Lymphocytes # (Manual) Monocytes # (Manual) 1.8 H PT 16.1 H INR 1.31 H D-Dimer ABG pH 7.558 H POC ABG pCO2 POC ABG pO2 74.7 L ABG pO2 ABG HCO3 ABG Base Excess ABG Hemoglobin 9.7 L ABG Oxyhemoglobin ABG Sodium 132.4 L ABG Potassium ABG Chloride 95.0 L ABG Glucose 437 H Carboxyhemoglobin Sodium Potassium Chloride Carbon Dioxide BUN Creatinine Glucose POC Glucose Lactic Acid Calcium Phosphorus Ferritin Total Bilirubin Direct Bilirubin AST ALT Lactate Dehydrogenase Total Creatine Kinase Troponin T Total Protein Albumin Triglycerides Arterial Blood Glucose 437 H Arterial Blood Ionized Calcium 4.3 L Urine pH Urine Creatinine Salicylates Acetaminophen Coronavirus (PCR) 09/12/20 09/12/20 09/12/20 04:21 05:20 06:37 WBC RBC Hgb Hct MCHC RDW Lymph % (Auto) [place] % (Auto) Lymph # (Auto) [place] # (Auto) Seg Neutrophils % Seg Neuts % (Manual) Lymphocytes % (Manual) Monocytes % (Manual) Nucleated RBC % Seg Neutrophils # Seg Neutrophils # Man Lymphocytes # (Manual) Monocytes # (Manual) PT INR D-Dimer ABG pH POC ABG pCO2 POC ABG pO2 ABG pO2 ABG HCO3 ABG Base Excess ABG Hemoglobin ABG Oxyhemoglobin ABG Sodium ABG Potassium ABG Chloride ABG Glucose Carboxyhemoglobin Sodium Potassium Chloride Carbon Dioxide BUN Creatinine Glucose POC Glucose 417 H 397 H 370 H Lactic Acid Calcium Phosphorus Ferritin Total Bilirubin Direct Bilirubin AST ALT Lactate Dehydrogenase Total Creatine Kinase Troponin T Total Protein Albumin Triglycerides Arterial Blood Glucose Arterial Blood Ionized Calcium Urine pH Urine Creatinine Salicylates Acetaminophen Coronavirus (PCR) 09/12/20 09/12/20 09/12/20 11:56 17:14 21:52 WBC RBC Hgb Hct MCHC RDW Lymph % (Auto) [place] % (Auto) Lymph # (Auto) [place] # (Auto) Seg Neutrophils % Seg Neuts % (Manual) Lymphocytes % (Manual) Monocytes % (Manual) Nucleated RBC % Seg Neutrophils # Seg Neutrophils # Man Lymphocytes # (Manual) Monocytes # (Manual) PT INR D-Dimer ABG pH POC ABG pCO2 POC ABG pO2 ABG pO2 ABG HCO3 ABG Base Excess ABG Hemoglobin ABG Oxyhemoglobin ABG Sodium ABG Potassium ABG Chloride ABG Glucose Carboxyhemoglobin Sodium Potassium Chloride Carbon Dioxide BUN Creatinine Glucose POC Glucose 341 H 325 H 285 H Lactic Acid Calcium Phosphorus Ferritin Total Bilirubin Direct Bilirubin AST ALT Lactate Dehydrogenase Total Creatine Kinase Troponin T Total Protein Albumin Triglycerides Arterial Blood Glucose Arterial Blood Ionized Calcium Urine pH Urine Creatinine Salicylates Acetaminophen Coronavirus (PCR) 09/12/20 09/12/20 09/12/20 23:39 Unknown Unknown WBC RBC Hgb Hct MCHC RDW Lymph % (Auto) [place] % (Auto) Lymph # (Auto) [place] # (Auto) Seg Neutrophils % Seg Neuts % (Manual) Lymphocytes % (Manual) Monocytes % (Manual) Nucleated RBC % Seg Neutrophils # Seg Neutrophils # Man Lymphocytes # (Manual) Monocytes # (Manual) PT INR D-Dimer ABG pH POC ABG pCO2 POC ABG pO2 ABG pO2 ABG HCO3 ABG Base Excess ABG Hemoglobin ABG Oxyhemoglobin ABG Sodium ABG Potassium ABG Chloride ABG Glucose Carboxyhemoglobin Sodium 135 L Potassium Chloride 92.2 L Carbon Dioxide BUN 65 H Creatinine 3.5 H Glucose 418 H POC Glucose 338 H Lactic Acid Calcium Phosphorus Ferritin Total Bilirubin Direct Bilirubin AST 553 H ALT 3453 H Lactate Dehydrogenase Total Creatine Kinase Troponin T Total Protein 5.9 L Albumin 3.0 L Triglycerides 220 H Arterial Blood Glucose Arterial Blood Ionized Calcium Urine pH Urine Creatinine Salicylates Acetaminophen Coronavirus (PCR) 09/13/20 09/13/20 09/13/20 04:47 05:24 10:50 WBC RBC Hgb Hct MCHC RDW Lymph % (Auto) [place] % (Auto) Lymph # (Auto) [place] # (Auto) Seg Neutrophils % Seg Neuts % (Manual) Lymphocytes % (Manual) Monocytes % (Manual) Nucleated RBC % Seg Neutrophils # Seg Neutrophils # Man Lymphocytes # (Manual) Monocytes # (Manual) PT INR D-Dimer ABG pH 7.571 H POC ABG pCO2 POC ABG pO2 69.0 L ABG pO2 ABG HCO3 ABG Base Excess ABG Hemoglobin 10.1 L ABG Oxyhemoglobin 93.2 L ABG Sodium 134.0 L ABG Potassium ABG Chloride ABG Glucose 365 H Carboxyhemoglobin 0.4 L Sodium Potassium Chloride 96.6 L Carbon Dioxide 32 H BUN 76 H Creatinine 3.1 H Glucose 395 H POC Glucose 329 H Lactic Acid Calcium Phosphorus Ferritin Total Bilirubin Direct Bilirubin AST ALT Lactate Dehydrogenase Total Creatine Kinase Troponin T Total Protein Albumin Triglycerides Arterial Blood Glucose 365 H Arterial Blood Ionized Calcium Urine pH Urine Creatinine Salicylates Acetaminophen Coronavirus (PCR) 09/13/20 09/13/20 09/13/20 11:39 17:48 23:35 WBC RBC Hgb Hct MCHC RDW Lymph % (Auto) [place] % (Auto) Lymph # (Auto) [place] # (Auto) Seg Neutrophils % Seg Neuts % (Manual) Lymphocytes % (Manual) Monocytes % (Manual) Nucleated RBC % Seg Neutrophils # Seg Neutrophils # Man Lymphocytes # (Manual) Monocytes # (Manual) PT INR D-Dimer ABG pH POC ABG pCO2 POC ABG pO2 ABG pO2 ABG HCO3 ABG Base Excess ABG Hemoglobin ABG Oxyhemoglobin ABG Sodium ABG Potassium ABG Chloride ABG Glucose Carboxyhemoglobin Sodium Potassium Chloride Carbon Dioxide BUN Creatinine Glucose POC Glucose 344 H 286 H 223 H Lactic Acid Calcium Phosphorus Ferritin Total Bilirubin Direct Bilirubin AST ALT Lactate Dehydrogenase Total Creatine Kinase Troponin T Total Protein Albumin Triglycerides Arterial Blood Glucose Arterial Blood Ionized Calcium Urine pH Urine Creatinine Salicylates Acetaminophen Coronavirus (PCR) 09/14/20 09/14/20 09/14/20 03:54 05:34 10:27 WBC RBC Hgb Hct MCHC RDW Lymph % (Auto) [place] % (Auto) Lymph # (Auto) [place] # (Auto) Seg Neutrophils % Seg Neuts % (Manual) Lymphocytes % (Manual) Monocytes % (Manual) Nucleated RBC % Seg Neutrophils # Seg Neutrophils # Man Lymphocytes # (Manual) Monocytes # (Manual) PT INR D-Dimer ABG pH POC ABG pCO2 POC ABG pO2 71.1 L ABG pO2 ABG HCO3 ABG Base Excess ABG Hemoglobin 10.3 L ABG Oxyhemoglobin ABG Sodium 135.2 L ABG Potassium ABG Chloride ABG Glucose 281 H Carboxyhemoglobin Sodium Potassium Chloride 96.6 L Carbon Dioxide BUN 100 H Creatinine 3.9 H Glucose 286 H POC Glucose 252 H Lactic Acid Calcium Phosphorus Ferritin Total Bilirubin Direct Bilirubin AST 145 H ALT 1400 H Lactate Dehydrogenase Total Creatine Kinase Troponin T Total Protein 5.6 L Albumin 2.9 L Triglycerides Arterial Blood Glucose 281 H Arterial Blood Ionized Calcium Urine pH Urine Creatinine Salicylates Acetaminophen Coronavirus (PCR) 09/14/20 09/14/20 09/14/20 11:38 17:52 23:07 WBC RBC Hgb Hct MCHC RDW Lymph % (Auto) [place] % (Auto) Lymph # (Auto) [place] # (Auto) Seg Neutrophils % Seg Neuts % (Manual) Lymphocytes % (Manual) Monocytes % (Manual) Nucleated RBC % Seg Neutrophils # Seg Neutrophils # Man Lymphocytes # (Manual) Monocytes # (Manual) PT INR D-Dimer ABG pH POC ABG pCO2 POC ABG pO2 ABG pO2 ABG HCO3 ABG Base Excess ABG Hemoglobin ABG Oxyhemoglobin ABG Sodium ABG Potassium ABG Chloride ABG Glucose Carboxyhemoglobin Sodium Potassium Chloride Carbon Dioxide BUN Creatinine Glucose POC Glucose 247 H 247 H 256 H Lactic Acid Calcium Phosphorus Ferritin Total Bilirubin Direct Bilirubin AST ALT Lactate Dehydrogenase Total Creatine Kinase Troponin T Total Protein Albumin Triglycerides Arterial Blood Glucose Arterial Blood Ionized Calcium Urine pH Urine Creatinine Salicylates Acetaminophen Coronavirus (PCR) 09/15/20 09/15/20 09/15/20 04:54 11:24 17:48 WBC RBC Hgb Hct MCHC RDW Lymph % (Auto) [place] % (Auto) Lymph # (Auto) [place] # (Auto) Seg Neutrophils % Seg Neuts % (Manual) Lymphocytes % (Manual) Monocytes % (Manual) Nucleated RBC % Seg Neutrophils # Seg Neutrophils # Man Lymphocytes # (Manual) Monocytes # (Manual) PT INR D-Dimer ABG pH POC ABG pCO2 POC ABG pO2 ABG pO2 ABG HCO3 ABG Base Excess ABG Hemoglobin ABG Oxyhemoglobin ABG Sodium ABG Potassium ABG Chloride ABG Glucose Carboxyhemoglobin Sodium Potassium Chloride Carbon Dioxide BUN Creatinine Glucose POC Glucose 271 H 228 H 254 H Lactic Acid Calcium Phosphorus Ferritin Total Bilirubin Direct Bilirubin AST ALT Lactate Dehydrogenase Total Creatine Kinase Troponin T Total Protein Albumin Triglycerides Arterial Blood Glucose Arterial Blood Ionized Calcium Urine pH Urine Creatinine Salicylates Acetaminophen Coronavirus (PCR) 09/15/20 09/15/20 09/15/20 19:20 19:20 23:13 WBC 27.3 H RBC 3.16 L Hgb 8.8 L Hct 27.0 L MCHC RDW 19.7 H Lymph % (Auto) [place] % (Auto) Lymph # (Auto) [place] # (Auto) Seg Neutrophils % Seg Neuts % (Manual) 81.0 H Lymphocytes % (Manual) 9.0 L Monocytes % (Manual) 10.0 H Nucleated RBC % Seg Neutrophils # Seg Neutrophils # Man 22.1 H Lymphocytes # (Manual) Monocytes # (Manual) 2.7 H PT INR D-Dimer ABG pH POC ABG pCO2 POC ABG pO2 ABG pO2 ABG HCO3 ABG Base Excess ABG Hemoglobin ABG Oxyhemoglobin ABG Sodium ABG Potassium ABG Chloride ABG Glucose Carboxyhemoglobin Sodium Potassium Chloride Carbon Dioxide BUN 68 H Creatinine 2.8 H Glucose 288 H POC Glucose 259 H Lactic Acid Calcium Phosphorus Ferritin Total Bilirubin Direct Bilirubin AST ALT Lactate Dehydrogenase Total Creatine Kinase Troponin T Total Protein Albumin Triglycerides Arterial Blood Glucose Arterial Blood Ionized Calcium Urine pH Urine Creatinine Salicylates Acetaminophen Coronavirus (PCR) 09/16/20 09/16/20 09/16/20 05:27 09:40 11:48 WBC RBC Hgb Hct MCHC RDW Lymph % (Auto) [place] % (Auto) Lymph # (Auto) [place] # (Auto) Seg Neutrophils % Seg Neuts % (Manual) Lymphocytes % (Manual) Monocytes % (Manual) Nucleated RBC % Seg Neutrophils # Seg Neutrophils # Man Lymphocytes # (Manual) Monocytes # (Manual) PT INR D-Dimer ABG pH POC ABG pCO2 POC ABG pO2 ABG pO2 ABG HCO3 ABG Base Excess ABG Hemoglobin ABG Oxyhemoglobin ABG Sodium ABG Potassium ABG Chloride ABG Glucose Carboxyhemoglobin Sodium Potassium Chloride Carbon Dioxide 31 H BUN 77 H Creatinine 2.9 H Glucose 250 H POC Glucose 275 H 234 H Lactic Acid Calcium Phosphorus Ferritin Total Bilirubin Direct Bilirubin AST ALT Lactate Dehydrogenase Total Creatine Kinase Troponin T Total Protein Albumin Triglycerides Arterial Blood Glucose Arterial Blood Ionized Calcium Urine pH Urine Creatinine Salicylates Acetaminophen Coronavirus (PCR) 09/16/20 09/16/20 09/17/20 17:40 23:23 00:01 WBC RBC Hgb Hct MCHC RDW Lymph % (Auto) [place] % (Auto) Lymph # (Auto) [place] # (Auto) Seg Neutrophils % Seg Neuts % (Manual) Lymphocytes % (Manual) Monocytes % (Manual) Nucleated RBC % Seg Neutrophils # Seg Neutrophils # Man Lymphocytes # (Manual) Monocytes # (Manual) PT INR D-Dimer ABG pH POC ABG pCO2 POC ABG pO2 ABG pO2 ABG HCO3 ABG Base Excess ABG Hemoglobin ABG Oxyhemoglobin ABG Sodium ABG Potassium ABG Chloride ABG Glucose Carboxyhemoglobin Sodium Potassium Chloride Carbon Dioxide BUN Creatinine Glucose POC Glucose 172 H 161 H Lactic Acid 2.10 H* Calcium Phosphorus Ferritin Total Bilirubin Direct Bilirubin AST ALT Lactate Dehydrogenase Total Creatine Kinase Troponin T Total Protein Albumin Triglycerides Arterial Blood Glucose Arterial Blood Ionized Calcium Urine pH Urine Creatinine Salicylates Acetaminophen Coronavirus (PCR) 09/17/20 09/17/20 09/17/20 04:00 04:00 05:09 WBC 19.5 H RBC 3.03 L Hgb 8.6 L Hct 26.3 L MCHC RDW 19.4 H Lymph % (Auto) 8.7 L [place] % (Auto) 13.7 H Lymph # (Auto) [place] # (Auto) 2.7 H Seg Neutrophils % 76.9 H Seg Neuts % (Manual) Lymphocytes % (Manual) Monocytes % (Manual) Nucleated RBC % Seg Neutrophils # 15.0 H Seg Neutrophils # Man Lymphocytes # (Manual) Monocytes # (Manual) PT INR D-Dimer ABG pH POC ABG pCO2 POC ABG pO2 ABG pO2 ABG HCO3 ABG Base Excess ABG Hemoglobin ABG Oxyhemoglobin ABG Sodium ABG Potassium ABG Chloride ABG Glucose Carboxyhemoglobin Sodium 146 H Potassium 3.1 L Chloride Carbon Dioxide BUN 79 H Creatinine 2.6 H Glucose 122 H POC Glucose 116 H Lactic Acid Calcium Phosphorus Ferritin Total Bilirubin Direct Bilirubin AST 64 H ALT 516 H Lactate Dehydrogenase Total Creatine Kinase Troponin T Total Protein 5.7 L Albumin 2.8 L Triglycerides Arterial Blood Glucose Arterial Blood Ionized Calcium Urine pH Urine Creatinine Salicylates Acetaminophen Coronavirus (PCR) 09/17/20 09/17/20 09/18/20 13:52 17:38 05:16 WBC RBC Hgb Hct MCHC RDW Lymph % (Auto) [place] % (Auto) Lymph # (Auto) [place] # (Auto) Seg Neutrophils % Seg Neuts % (Manual) Lymphocytes % (Manual) Monocytes % (Manual) Nucleated RBC % Seg Neutrophils # Seg Neutrophils # Man Lymphocytes # (Manual) Monocytes # (Manual) PT INR D-Dimer ABG pH POC ABG pCO2 POC ABG pO2 ABG pO2 ABG HCO3 ABG Base Excess ABG Hemoglobin ABG Oxyhemoglobin ABG Sodium ABG Potassium ABG Chloride ABG Glucose Carboxyhemoglobin Sodium Potassium Chloride Carbon Dioxide BUN Creatinine Glucose POC Glucose 68 L 126 H Lactic Acid 2.90 H* Calcium Phosphorus Ferritin Total Bilirubin Direct Bilirubin AST ALT Lactate Dehydrogenase Total Creatine Kinase Troponin T Total Protein Albumin Triglycerides Arterial Blood Glucose Arterial Blood Ionized Calcium Urine pH Urine Creatinine Salicylates Acetaminophen Coronavirus (PCR) 09/18/20 09/18/20 05:30 05:30 WBC 18.2 H RBC 3.18 L Hgb 9.0 L Hct 27.2 L MCHC RDW 18.8 H Lymph % (Auto) [place] % (Auto) Lymph # (Auto) [place] # (Auto) Seg Neutrophils % Seg Neuts % (Manual) Lymphocytes % (Manual) Monocytes % (Manual) Nucleated RBC % Seg Neutrophils # Seg Neutrophils # Man Lymphocytes # (Manual) Monocytes # (Manual) PT INR D-Dimer ABG pH POC ABG pCO2 POC ABG pO2 ABG pO2 ABG HCO3 ABG Base Excess ABG Hemoglobin ABG Oxyhemoglobin ABG Sodium ABG Potassium ABG Chloride ABG Glucose Carboxyhemoglobin Sodium Potassium 3.1 L Chloride Carbon Dioxide BUN 73 H Creatinine 2.6 H Glucose 154 H POC Glucose Lactic Acid Calcium Phosphorus Ferritin Total Bilirubin Direct Bilirubin AST ALT Lactate Dehydrogenase Total Creatine Kinase Troponin T Total Protein Albumin Triglycerides Arterial Blood Glucose Arterial Blood Ionized Calcium Urine pH Urine Creatinine Salicylates Acetaminophen Coronavirus (PCR)
--- NOTE | 2020-09-18 12:17 | Progress Note ---
Assessment and Plan Cultures: Blood culture 09/07/2020 no growth SARS CoV2 PCR positive 09/07/2020 urine culture: No growth HIV, hepatitis panel: Negative Assessment: 65 years old male with unknown medical history, morbidly obese, brought to the ED by EMS on 09/07/2020 secondary to passing out, found in out of hospital cardiac arrest status post resuscitation, intubated in the field: #[id number] cardiac arrest/shock #Bilateral pneumonia secondary to COVID-19 infection. Inflammatory markers elevated. D-dimer was 8315. apparently, patient was recently hospitalized at the [facility] for COVID-19 prior to admission here. Was not a candidate for remdesivir due to hepatic and renal failure. #Acute hypoxic respiratory failure: on the vent, minimal settings. #Acute renal failure: Creatinine elevated. Likely secondary to cardiac arrest/COVID-19 infection #Shock liver, transaminitis: Viral hepatitis panel negative. #Acute Encephalopathy: Initial GCS 3, noted myoclonic jerking.? Anoxic brain injury. Appreciate neurology evaluation. Recs: -continue off abx -Poor prognosis Marisol Stock MD, FACP [facility], [place], [facility] O: [phone] F: [phone] Subjective Date of service: 09/18/20 Principal diagnosis: Abnormal LFTs, s/p cardiac arrest, acute kidney injury with ATN Interval history: No fever. Remains on the vent. Unresponsive. Objective - Exam Narrative Exam: Physical Exam (reviewed in chart to minimize risk of transmission) Constitutional: deferred Head, Ears, Nose: deferred Eyes: deferred Neck: deferred Oral: deferred Cardiovascular: deferred Respiratory: deferred GI: deferred Musculoskeletal: deferred Skin: deferred Hem/Lymphatic: deferred Psych: deferred Neurological: deferred - Constitutional Vitals: Vital Signs Temp Pulse Resp BP Pulse Ox 98.5 F 63 30 H 140/78 100 09/18/20 08:00 09/18/20 11:31 09/18/20 11:31 09/18/20 09:00 09/18/20 11:31 Temperature -Last 24 Hours Temperature 98.5 F Temperature 98.1 F Temperature 98.7 F Temperature 98.8 F Temperature 98.5 F - Labs CBC & Chem 7: 09/18/20 05:30 09/18/20 05:30 Labs: Abnormal lab results 09/17/20 09/17/20 09/18/20 Range/Units 13:52 17:38 05:16 WBC (4.5-11.0) K/mm3 RBC (3.65-5.03) M/mm3 Hgb (11.8-15.2) gm/dl Hct (35.5-45.6) % RDW (13.2-15.2) % Potassium (3.6-5.0) mmol/L BUN (9-20) mg/dL Creatinine (0.8-1.3) mg/dL Glucose (75-100) mg/dL POC Glucose 68 L 126 H (70-105) mg/dL Lactic Acid 2.90 H* (0.7-2.0) mmol/L 09/18/20 09/18/20 Range/Units 05:30 05:30 WBC 18.2 H (4.5-11.0) K/mm3 RBC 3.18 L (3.65-5.03) M/mm3 Hgb 9.0 L (11.8-15.2) gm/dl Hct 27.2 L (35.5-45.6) % RDW 18.8 H (13.2-15.2) % Potassium 3.1 L (3.6-5.0) mmol/L BUN 73 H (9-20) mg/dL Creatinine 2.6 H (0.8-1.3) mg/dL Glucose 154 H (75-100) mg/dL POC Glucose (70-105) mg/dL Lactic Acid (0.7-2.0) mmol/L
--- NOTE | 2020-09-18 13:47 | XRay Report ---
ABDOMEN 1 VIEW(S) INDICATION / CLINICAL INFORMATION: vomiting, /obstruction. COMPARISON: 09/15/2020 FINDINGS: TUBES / LINES: Nasogastric tube is unchanged terminating in the distal stomach. A left femoral dual-l umen catheter terminates in the IVC at the level of L3. BOWEL GAS PATTERN: No significant abnormality. FREE AIR / EXTRALUMINAL GAS: None seen. ADDITIONAL FINDINGS: No significant additional findings. IMPRESSION: No significant abnormality. Signer Name: Korey Arnett Jr, MD Signed: 09/18/2020 1:42 PM Workstation Name: [id number]
[2020-09-19] MEDS: INSULIN LISPRO 100 UNIT/ML SUB-Q SCH ×2 (00:28→05:26)
[2020-09-19] MEDS: ONDANSETRON 4 MG/2 ML INJ IV PRN (04:00)
[2020-09-19 05:59] LABS: Hematocrit 28.1 % (35.5-45.6); Hemoglobin 9.2 gm/dl (11.8-15.2); Mean Corpuscular HGB Conc 33 % (32-34); Mean Corpuscular Volume 85 fl (84-94); Platelet Count 211 K/mm3 (140-440); Red Cell Distribution Width 18.2 % (13.2-15.2)
[2020-09-19 06:15] LABS: Calcium 8.9 mg/dL (8.4-10.2)
[2020-09-19 07:57] LABS: Anisocytosis 1+; Band Neutrophils # (Manual) 0.2 K/mm3; Platelet Estimate Consistent w Auto; Total Cells Counted 100
--- NOTE | 2020-09-19 09:12 | Progress Note ---
Assessment and Plan Assessment and plan: S/p cardiopulmonary arrest Toxic metabolic encephalopathy +/-anoxic injury Acute hypoxic respiratory failure Acute kidney injury Seizure disorder Hyperkalemia COVID-19 pneumonia Sepsis Transaminitis Morbid obesity. 09/15/2020. MRI brain for further evaluation. Continue AEDs of valproic acid and Keppra. Continue hemodialysis per nephrology recommendations. Overall prognosis remains guarded and poor. 09/16/2020. ID recommends continue to monitor patient off of antibiotics. Fever most likely of central etiology. Patient with questionable seizures versus myoclonus from anoxic brain injury. Patient unable to undergo MRI due to body habitus. Continue AEDs per neurology recommendations. Inflammatory markers elevated. Patient was recently hospitalized for COVID-19 pneumonia at the [place] prior to being hospitalized here. Patient not a candidate for remdesivir due to hepatic and renal failure. Viral hepatitis panel negative. Overall prognosis extremely poor. 09/17/2020. Fevers have resolved over the past 48 hours. Continue to monitor off antibiotics per ID recommendations. Patient with questionable seizures versus myoclonus from anoxic brain injury. Patient unable to undergo MRI due to body habitus. EEG is nonspecific but given CT of head findings consistent with anoxic encephalopathy, brain injury. Continue AEDs per neurology recommendations. Inflammatory markers elevated. Patient was recently hospitalized for COVID-19 pneumonia at the [place] prior to being hospitalized here. Patient not a candidate for remdesivir due to hepatic and renal failure. Viral hepatitis panel negative. Patient is s/p emergent HD on Friday (hyperK) and Friday - 09/08. Patient also S/p HD 09/15. Continue hemodialysis per nephrology recommendations. Patient currently on AC/PRVC mode ventilation with rate of 30, tidal volume 475, FiO2 30% and PEEP of 6. As stated in neuro note, overall prognosis is very poor. 09/18/2020. Fevers have resolved over the past 72 hours. Continue to monitor off antibiotics per ID recommendations. Leukocytosis persistent for the past 4 days. Patient with questionable seizures/myoclonus from anoxic brain injury. Patient unable to undergo MRI due to body habitus. EEG is nonspecific but given CT of head findings consistent with anoxic encephalopathy, brain injury. Continue AEDs per neurology recommendations. Inflammatory markers elevated. Patient was recently hospitalized for COVID-19 pneumonia at the [place] prior to being hospitalized here. Patient not a candidate for remdesivir due to hepatic and renal failure. Viral hepatitis panel negative. Patient currently on AC/PRVC mode ventilation with rate of 30, tidal volume 475, FiO2 30% and PEEP of 6. Overall prognosis remains guarded/poor. 07/19/2021 Fevers have resolved over the past 4 days. Continue to monitor off antibiotics per ID recommendations. Leukocytosis persistent for the past 4 days. Patient with questionable seizures/myoclonus from anoxic brain injury. Patient unable to undergo MRI due to body habitus. EEG is nonspecific but given CT of head findings consistent with anoxic encephalopathy, brain injury. Continue AEDs per neurology recommendations. Inflammatory markers elevated. Patient was recently hospitalized for COVID-19 pneumonia at the [place] prior to being hospitalized here. Patient not a candidate for remdesivir due to hepatic and renal failure. Viral hepatitis panel negative. Patient currently on AC/PRVC mode ventilation with rate of 30, tidal volume 475, FiO2 30% and PEEP of 6. Overall prognosis remains guarded/poor. The high probability of a clinically significant, sudden or life threatening deterioration of the [cardiac, respiratory and neurological] system(s) required my full and direct attention, intervention and personal management. The aggregate critical care time was [32] minutes. This time is in addition to time spent performing reported procedures but includes the following: [x] Data Review and interpretation [x] Patient assessment and monitoring of vital signs [x] Documentation [x] Medication orders and management History Interval history: Patient was intubated and sedated Hospitalist Physical - Physical exam Narrative exam: On mechanical ventilation. The patient appeared well nourished and normally developed. Vital signs as documented. Head exam is unremarkable. No scleral icterus . Neck is without jugular venous distension, thyromegaly, or carotid bruits. Lungs are clear to auscultation. Cardiac exam reveals regular rate and Rhythm. Abdominal exam reveals normal bowel sounds, nontender, no organomegaly. Extremities are nonedematous and both femoral and pedal pulses are normal. REHAB THERAPIST: Patient is intubated. - Constitutional Vitals: Temp Pulse Resp BP Pulse Ox 97.9 F 64 30 H 153/72 100 09/19/20 07:00 09/19/20 08:40 09/19/20 08:00 09/19/20 08:40 09/19/20 08:40 General appearance: Present: other (Intubated sedated) HEART Score - HEART Score Troponin: Troponin T 0.076 ng/mL (0.00-0.029) H 09/07/20 14:00 Results - Labs CBC & Chem 7: 09/19/20 05:13 09/19/20 05:13 Labs: Laboratory Last Values WBC 22.8 K/mm3 (4.5-11.0) H 09/19/20 05:13 RBC 3.30 M/mm3 (3.65-5.03) L 09/19/20 05:13 Hgb 9.2 gm/dl (11.8-15.2) L 09/19/20 05:13 Hct 28.1 % (35.5-45.6) L 09/19/20 05:13 MCV 85 fl (84-94) 09/19/20 05:13 MCH 28 pg (28-32) 09/19/20 05:13 MCHC 33 % (32-34) 09/19/20 05:13 RDW 18.2 % (13.2-15.2) H 09/19/20 05:13 Plt Count 211 K/mm3 (140-440) 09/19/20 05:13 Lymph % (Auto) 8.7 % (13.4-35.0) L 09/17/20 04:00 [place] % (Auto) 13.7 % (0.0-7.3) H 09/17/20 04:00 Eos % (Auto) 0.4 % (0.0-4.3) 09/17/20 04:00 Baso % (Auto) 0.3 % (0.0-1.8) 09/17/20 04:00 Lymph # (Auto) 1.7 K/mm3 (1.2-5.4) 09/17/20 04:00 [place] # (Auto) 2.7 K/mm3 (0.0-0.8) H 09/17/20 04:00 Eos # (Auto) 0.1 K/mm3 (0.0-0.4) 09/17/20 04:00 Baso # (Auto) 0.1 K/mm3 (0.0-0.1) 09/17/20 04:00 Add Manual Diff Complete 09/19/20 05:13 Total Counted 100 09/19/20 05:13 Seg Neutrophils % 76.9 % (40.0-70.0) H 09/17/20 04:00 Seg Neuts % (Manual) 87.0 % (40.0-70.0) H 09/19/20 05:13 Band Neutrophils % 1.0 % 09/19/20 05:13 Lymphocytes % (Manual) 5.0 % (13.4-35.0) L 09/19/20 05:13 Monocytes % (Manual) 7.0 % (0.0-7.3) 09/19/20 05:13 Eosinophils % (Manual) 2.0 % (0.0-4.3) 09/07/20 14:00 Metamyelocytes % 2.0 % 09/08/20 Unknown Nucleated RBC % Not Reportable 09/19/20 05:13 Seg Neutrophils # 15.0 K/mm3 (1.8-7.7) H 09/17/20 04:00 Seg Neutrophils # Man 19.8 K/mm3 (1.8-7.7) H 09/19/20 05:13 Band Neutrophils # 0.2 K/mm3 09/19/20 05:13 Lymphocytes # (Manual) 1.1 K/mm3 (1.2-5.4) L 09/19/20 05:13 Abs React Lymphs (Man) 0.0 K/mm3 09/19/20 05:13 Monocytes # (Manual) 1.6 K/mm3 (0.0-0.8) H 09/19/20 05:13 Eosinophils # (Manual) 0.0 K/mm3 (0.0-0.4) 09/19/20 05:13 Basophils # (Manual) 0.0 K/mm3 (0.0-0.1) 09/19/20 05:13 Metamyelocytes # 0.0 K/mm3 09/19/20 05:13 Myelocytes # 0.0 K/mm3 09/19/20 05:13 Promyelocytes # 0.0 K/mm3 09/19/20 05:13 Blast Cells # 0.0 K/mm3 09/19/20 05:13 WBC Morphology Not Reportable 09/19/20 05:13 Hypersegmented Neuts Not Reportable 09/19/20 05:13 Hyposegmented Neuts Not Reportable 09/19/20 05:13 Hypogranular Neuts Not Reportable 09/19/20 05:13 Smudge Cells Not Reportable 09/19/20 05:13 Toxic Granulation Not Reportable 09/19/20 05:13 Toxic Vacuolation Not Reportable 09/19/20 05:13 Dohle Bodies Not Reportable 09/19/20 05:13 Pelger-Huet Anomaly Not Reportable 09/19/20 05:13 Justus Rods Not Reportable 09/19/20 05:13 Platelet Estimate Consistent w auto 09/19/20 05:13 Clumped Platelets Not Reportable 09/19/20 05:13 Plt Clumps, EDTA Not Reportable 09/19/20 05:13 Large Platelets Not Reportable 09/19/20 05:13 Giant Platelets Not Reportable 09/19/20 05:13 Platelet Satelliting Not Reportable 09/19/20 05:13 Plt Morphology Comment Not Reportable 09/19/20 05:13 RBC Morphology Not Reportable 09/19/20 05:13 Dimorphic RBCs Not Reportable 09/19/20 05:13 Polychromasia Not Reportable 09/19/20 05:13 Hypochromasia Not Reportable 09/19/20 05:13 Poikilocytosis Not Reportable 09/19/20 05:13 Anisocytosis 1+ 09/19/20 05:13 Microcytosis Not Reportable 09/19/20 05:13 Macrocytosis Not Reportable 09/19/20 05:13 Spherocytes Not Reportable 09/19/20 05:13 Pappenheimer Bodies Not Reportable 09/19/20 05:13 Sickle Cells Not Reportable 09/19/20 05:13 Target Cells Not Reportable 09/19/20 05:13 Tear Drop Cells Not Reportable 09/19/20 05:13 Ovalocytes Not Reportable 09/19/20 05:13 Helmet Cells Not Reportable 09/19/20 05:13 [place] Bodies Not Reportable 09/19/20 05:13 Saline Rings Not Reportable 09/19/20 05:13 Manjit Cells Not Reportable 09/19/20 05:13 Bite Cells Not Reportable 09/19/20 05:13 Crenated Cell Not Reportable 09/19/20 05:13 Elliptocytes Not Reportable 09/19/20 05:13 Acanthocytes (Spur) Not Reportable 09/19/20 05:13 Rouleaux Not Reportable 09/19/20 05:13 Hemoglobin C Crystals Not Reportable 09/19/20 05:13 Schistocytes Not Reportable 09/19/20 05:13 Malaria parasites Not Reportable 09/19/20 05:13 [place] Bodies Not Reportable 09/19/20 05:13 Hem Pathologist Commnt No 09/19/20 05:13 PT 16.1 Sec. (12.2-14.9) H 09/12/20 04:00 INR 1.31 (0.87-1.13) H 09/12/20 04:00 APTT 32.4 Sec. (24.2-36.6) 09/09/20 10:00 D-Dimer 8315.85 ng/mlDDU (0-234) H 09/07/20 14:00 ABG pH 7.442 (7.320-7.450) 09/14/20 03:54 POC ABG pCO2 42.3 mmHg (32.0-48.0) 09/14/20 03:54 ABG pCO2 33.4 mm Hg 09/11/20 05:40 POC ABG pO2 71.1 mmHg (83-108) L 09/14/20 03:54 ABG pO2 112.1 mm Hg (80.0-90.0) H 09/11/20 05:40 POC ABG HCO3 28.2 09/14/20 03:54 ABG HCO3 28.1 mmol/L (20.0-26.0) H 09/11/20 05:40 ABG O2 Saturation 98.4 % (95.0-99.0) 09/11/20 05:40 ABG O2 Content 11.6 (0.0-44) 09/11/20 05:40 POC ABG Base Excess 3.7 09/14/20 03:54 ABG Base Excess 5.4 mmol/L (-2.0-3.0) H 09/11/20 05:40 ABG Hemoglobin 10.3 (12.0-17.5) L 09/14/20 03:54 ABG Oxyhemoglobin 93.2 (94-98) L 09/13/20 04:47 ABG Carboxyhemoglobin 1.2 % (0.0-5.0) 09/11/20 05:40 ABG Methemoglobin 0.3 (0.0-1.5) 09/13/20 04:47 ABG Sodium 135.2 mmol/L (136.0-145.0) L 09/14/20 03:54 ABG Potassium 3.8 mmol/L (3.40-4.50) 09/14/20 03:54 ABG Chloride 98.0 mmol/L (98-107) 09/14/20 03:54 ABG Glucose 281 mg/dL (65-95) H 09/14/20 03:54 Oxyhemoglobin 96.8 % (95.0-99.0) 09/11/20 05:40 Carboxyhemoglobin 0.4 (0.5-1.5) L 09/13/20 04:47 FiO2 30 09/14/20 03:54 Sodium 144 mmol/L (137-145) 09/19/20 05:13 Potassium 3.8 mmol/L (3.6-5.0) D 09/19/20 05:13 Chloride 105.6 mmol/L (98-107) 09/19/20 05:13 Carbon Dioxide 27 mmol/L (22-30) 09/19/20 05:13 Anion Gap 15 mmol/L 09/19/20 05:13 BUN 55 mg/dL (9-20) H 09/19/20 05:13 Creatinine 2.3 mg/dL (0.8-1.3) H 09/19/20 05:13 Estimated GFR 35 ml/min 09/19/20 05:13 BUN/Creatinine Ratio 24 % 09/19/20 05:13 Glucose 196 mg/dL (75-100) H 09/19/20 05:13 POC Glucose 168 mg/dL (70-105) H 09/19/20 05:25 Lactic Acid 2.90 mmol/L (0.7-2.0) H* 09/17/20 13:52 Calcium 8.9 mg/dL (8.4-10.2) 09/19/20 05:13 Phosphorus 8.00 mg/dL (2.5-4.5) H 09/08/20 12:02 Magnesium 1.80 mg/dL (1.7-2.3) 09/08/20 12:02 Ferritin > 2000.0 ng/mL (30.0-300.0) H 09/07/20 14:00 Total Bilirubin 0.90 mg/dL (0.1-1.2) 09/17/20 04:00 Direct Bilirubin 0.5 mg/dL (0-0.2) H 09/08/20 05:00 Indirect Bilirubin 0.5 mg/dL 09/08/20 05:00 AST 64 units/L (5-40) H 09/17/20 04:00 ALT 516 units/L (7-56) H 09/17/20 04:00 Alkaline Phosphatase 87 units/L (35-129) 09/17/20 04:00 Ammonia 50.0 umol/L (25-60) 09/07/20 14:00 Lactate Dehydrogenase 882 units/L (91-180) H 09/07/20 14:00 Total Creatine Kinase 477 units/L (55-170) H 09/07/20 14:00 Troponin T 0.076 ng/mL (0.00-0.029) H 09/07/20 14:00 C-Reactive Protein 1.10 mg/dL (0.00-1.30) 09/07/20 14:00 Total Protein 5.7 g/dL (6.3-8.2) L 09/17/20 04:00 Albumin 2.8 g/dL (3.9-5) L 09/17/20 04:00 Albumin/Globulin Ratio 1.0 % 09/17/20 04:00 Triglycerides 220 mg/dL (2-149) H 09/12/20 Unknown Procalcitonin 1.52 ng/mL (<0.15) 09/17/20 13:02 TSH 2.290 mlU/mL (0.270-4.200) 09/07/20 14:00 Arterial Blood Glucose 281 mg/dL (65-95) H 09/14/20 03:54 Arterial Blood Ionized Calcium 4.6 mg/dL (4.6-5.3) 09/14/20 03:54 Urine Color Straw (Yellow) 09/07/20 13:08 Urine Turbidity Slightly-cloudy (Clear) 09/07/20 13:08 Urine pH 8.0 (5.0-7.0) H 09/07/20 13:08 Ur Specific [place] 1.006 (1.003-1.030) 09/07/20 13:08 Urine Protein 100 mg/dl mg/dL (Negative) 09/07/20 13:08 Urine Glucose (UA) Neg mg/dL (Negative) 09/07/20 13:08 Urine Ketones Neg mg/dL (Negative) 09/07/20 13:08 Urine Blood Neg (Negative) 09/07/20 13:08 Urine Nitrite Neg (Negative) 09/07/20 13:08 Urine Bilirubin Neg (Negative) 09/07/20 13:08 Urine Urobilinogen < 2.0 mg/dL (<2.0) 09/07/20 13:08 Ur Leukocyte Esterase Neg (Negative) 09/07/20 13:08 Urine WBC (Auto) 4.0 /HPF (0.0-6.0) 09/07/20 13:08 Urine RBC (Auto) 18.0 /HPF (0.0-6.0) 09/07/20 13:08 U Epithel Cells (Auto) 1.0 /HPF (0-13.0) 09/07/20 13:08 Urine Mucus Few /HPF 09/07/20 13:08 Urine Sperm 3+ /HPF ([employer] INST[employer]ER) 09/07/20 13:08 Urine Creatinine 182.4 mg/dL (0.1-20.0) H 09/08/20 Unknown Urine Sodium 40 mmol/L 09/08/20 Unknown Salicylates < 0.3 mg/dL (2.8-20.0) L 09/07/20 14:00 Acetaminophen 5.0 ug/mL (10.0-30.0) L 09/07/20 14:00 Plasma/Serum Alcohol < 0.01 % (0-0.07) 09/07/20 14:00 Coronavirus (PCR) Positive (Negative) A 09/08/20 Unknown Hepatitis A IgM Ab Non-reactive (NonReactive) 09/07/20 14:00 Hep Bs Antigen Non-reactive (Negative) 09/07/20 14:00 Hep B Core IgM Ab Non-reactive (NonReactive) 09/07/20 14:00 Hepatitis C Antibody Non-reactive (NonReactive) 09/07/20 14:00 HIV 1&2 Antibody Rapid Non react (Non React) 09/07/20 14:34 HIV P24 Antigen Non react (Non React) 09/07/20 14:34 Blood Type O POSITIVE 09/09/20 10:00 Antibody Screen Negative 09/07/20 14:00 Mae/IV: Voiding Method Indwelling Catheter IV Catheter Type [Right Triple Lumen Cath Femoral] IV Catheter Type [Left Peripheral IV Antecubital] IV Catheter Type [Left Hand] Peripheral IV IV Catheter Type [Right Peripheral IV Antecubital] Active Medications - Current Medications Current Medications: Generic Name Dose Route Start Last Admin Trade Name Freq PRN Reason Stop Dose Admin Acetaminophen 400 mg 09/10/20 20:50 09/14/20 23:38 Acetaminophen 325 Mg/10.15 Ml Oral Liqd Unit Dose PO 400 mg Q4HR PRN Administration Non Cardiac Pain or Temp>100.5 Lipase/Protease/Amylase 1 each 09/09/20 09:40 Lipase 10,500/Protease 25,000/Amylase 43,750 (Units) Dr Armenta FEEDTUBE PRN PRN For Clogged Feeding Tube Hydrophilic Ointment 1 applic 09/07/20 13:08 Lip Therapy Vaseline TP Q2HR PRN Dry Lips Propofol 1,000 mg in 100 mls @ 4.995 mls/hr 09/08/20 20:00 09/15/20 07:00 Diprivan 10 Mg/Ml IV 0 mcg/kg/min TITR TAYLOR 0 mls/hr Titration Protocol 5 MCG/KG/MIN Sodium Chloride 100 mls @ 999 mls/hr 09/09/20 13:36 Nacl 0.9% IV JAYJAY PRN Hypotension Levetiracetam 1,500 mg/ 115 mls @ 400 mls/hr 09/11/20 10:00 09/18/20 21:40 Dextrose IV Infused BID TAYLOR Infusion Valproate Sodium 1,000 mg/ 110 mls @ 100 mls/hr 09/14/20 22:00 09/18/20 22:30 Sodium Chloride IV Infused Q12HR TAYLOR Infusion Insulin Human Lispro 0 unit 09/12/20 12:00 09/19/20 05:26 Insulin Lispro 100 Unit/Ml SUB-Q 3 unit Q6HR TAYLOR Administration Protocol Lansoprazole 30 mg 09/11/20 11:00 09/18/20 21:20 Lansoprazole 30 Mg Solutab FEEDTUBE 30 mg BID TAYLOR Administration Lorazepam 2 mg 09/08/20 00:14 09/14/20 13:36 Lorazepam 2 Mg/Ml Vial IV 2 mg Q4H PRN Administration Seizures Multi-Ingred Cream/Lotion/Oil/Oint 1 applic 09/07/20 13:08 Mineral Oil/Petrolatum, White Ophth Oint 3.5 Gm OU Q4HR PRN Dry Eye(s) Multivitamins 5 ml 09/09/20 12:00 09/18/20 10:11 Multivitamins 5 Ml Oral Liquid PO 5 ml QDAY TAYLOR Administration Ondansetron HCl 4 mg 09/07/20 17:55 09/19/20 04:00 Ondansetron 4 Mg/2 Ml Inj IV 4 mg Q8H PRN Administration Nausea And Vomiting Senna/Docusate Sodium 2 tab 09/13/20 11:00 09/18/20 21:21 Sennosides/Docusate Sodium 8.6/50 Mg Tab PO 2 tab BID TAYLOR Administration Simple Syrup 15 ml 09/09/20 09:40 09/17/20 17:43 Simple Syrup 15 Ml FEEDTUBE 15 ml PRN PRN Administration Hypoglycemia Simple Syrup 30 ml 09/09/20 09:40 Simple Syrup 15 Ml FEEDTUBE PRN PRN Hypoglycemia Sodium Bicarbonate 325 mg 09/09/20 09:40 Sodium Bicarbonate 325 Mg Tab FEEDTUBE PRN PRN For Clogged Feeding Tube Sodium Chloride 10 ml 09/07/20 22:00 09/18/20 21:21 Sodium Chloride 0.9% 10 Ml Flush Syringe IV 10 ml BID TAYLOR Administration Sodium Chloride 10 ml 09/07/20 17:55 Sodium Chloride 0.9% 10 Ml Flush Syringe IV PRN PRN LINE FLUSH Nutrition/Malnutrition Assess - Dietary Evaluation Nutrition/Malnutrition Findings: Nutrition Notes Start: 09/08/20 12:01 Freq: Status: Active Protocol: Document 09/15/20 10:36 EN (Rec: 09/15/20 10:43 EN [id number]) Co-Sign 09/15/20 10:36 MK Nutrition Notes Initial or Follow up Reassessment Current Diagnosis Acute Kidney Injury Other Pertinent Diagnosis acute renal failure, cardiac arrest, possible seizures, COVID(+), AMS Current Diet Nepro 1.8 at 45 ml/hr Labs/Tests POC BG 271 Pertinent Medications Lantus Humalog Height 6 ft Weight 166.5 kg [place] Body Weight (kg) 80.90 BMI 49.8 Weight Status Morbidly Obese Subjective/Other Information F/u for TF tolerance and BM. Pt has not yet had a BM. Per RN, TF infusing at goal and tolerated well Percent of energy/protein needs met: 100%/43% Burn Absent Trauma Absent GI Symptoms Constipation Current % PO Negligible Minimum of two criteria No physical signs of malnutrition #1 Nutrition Diagnosis Inadequate oral intake Diagnosis Progress(for reassessment Continues documentation) Is patient on ventilator? Yes Is Patient Ambulatory and/or Out of Bed No REE-(Schleicher-St. Jeor-confined to bed) 2995.752 Kcal/Kg value to use for calculation 12 Approximate Energy Requirements Using 1998 kcal/Kg Calculation Used for Recommendations Kcal/kg Additional Notes PRO needs: >202g (> 2.5g/kg IBW 80.9kg) Fluid needs: 1 mL/kcal or per MD Nutrition Intervention Change Diet Order: TF Nutrition Support: Nepro 1.8 at 45 mL/hr Flush 200 mL q4h Kcal 1,944 Protein (gm) 87 Fluid (mL) 785 Goal #1 Meet at least 100% of energy needs and meet protein needs as best as possible Anticipated Discharge Needs: Unable to determine Follow-Up By: 09/19/20 Additional Comments F/u for TF tolerance and BM
--- NOTE | 2020-09-19 09:27 | Progress Note ---
Assessment and Plan Impression: * Nonoliguric RYAN secondary to ATN * Severe hyperkalemia - resolved * COVID 19 PNA * s/p OOH cardiac arrest * Acute hypoxic respiratory failure * Seizure activity * Anemia Plan: * Patient is s/p emergent HD - 09/08 * Continue MWF * Check labs daily * Strict I/O * Monitor for renal recovery * Keep MAP > 65 * Vent management per CCM * Steroids per primary team/ID * Dose medications for renal function * Avoid potential nephrotoxins * Prognosis is guarded Subjective Date of service: 09/19/20 Principal diagnosis: Abnormal LFTs, s/p cardiac arrest, acute kidney injury with ATN Interval history: resting in bed today Objective - Exam Narrative Exam: Deferred for PPE conservation and to prevent spread of infection - Vital Signs Vital signs: Vital Signs - 12hr 09/18/20 09/18/20 09/18/20 22:00 23:00 23:30 Temperature 98.0 F Pulse Rate 57 L 57 L 63 Pulse Rate [ From Monitor] Respiratory 30 H 30 H 31 H Rate Blood Pressure 158/73 166/80 180/96 O2 Sat by Pulse 100 100 Oximetry O2 Sat by Pulse 100 Oximetry [ Bilateral Throughout] 09/18/20 09/18/20 09/19/20 23:40 23:50 00:00 Temperature 98 F Pulse Rate 64 64 Pulse Rate [ 66 From Monitor] Respiratory 30 H Rate Blood Pressure 182/93 157/88 O2 Sat by Pulse 100 Oximetry O2 Sat by Pulse Oximetry [ Bilateral Throughout] 09/19/20 09/19/20 09/19/20 00:15 00:30 00:45 Temperature Pulse Rate 66 68 71 Pulse Rate [ From Monitor] Respiratory Rate Blood Pressure 149/90 154/85 143/82 O2 Sat by Pulse Oximetry O2 Sat by Pulse Oximetry [ Bilateral Throughout] 09/19/20 09/19/20 09/19/20 01:00 01:12 01:15 Temperature Pulse Rate 72 74 75 Pulse Rate [ From Monitor] Respiratory 30 H Rate Blood Pressure 145/77 145/79 131/76 O2 Sat by Pulse 100 100 Oximetry O2 Sat by Pulse Oximetry [ Bilateral Throughout] 09/19/20 09/19/20 09/19/20 01:30 01:45 02:00 Temperature 98.0 F Pulse Rate 75 75 76 Pulse Rate [ From Monitor] Respiratory 30 H Rate Blood Pressure 129/83 122/83 142/82 O2 Sat by Pulse 100 Oximetry O2 Sat by Pulse 100 Oximetry [ Bilateral Throughout] 09/19/20 09/19/20 09/19/20 03:00 03:12 04:00 Temperature 98.3 F Pulse Rate 72 70 Pulse Rate [ 70 From Monitor] Respiratory 30 H 28 H Rate Blood Pressure 140/67 158/93 O2 Sat by Pulse 100 100 Oximetry O2 Sat by Pulse Oximetry [ Bilateral Throughout] 09/19/20 09/19/20 09/19/20 04:52 05:00 06:00 Temperature Pulse Rate 67 67 70 Pulse Rate [ From Monitor] Respiratory 30 H 14 Rate Blood Pressure 144/73 158/83 157/79 O2 Sat by Pulse 100 100 100 Oximetry O2 Sat by Pulse Oximetry [ Bilateral Throughout] 09/19/20 09/19/20 09/19/20 07:00 08:00 08:40 Temperature 97.9 F Pulse Rate 67 65 64 Pulse Rate [ 66 From Monitor] Respiratory 8 L 31 H Rate Blood Pressure 153/68 155/86 153/72 O2 Sat by Pulse 100 97 100 Oximetry O2 Sat by Pulse Oximetry [ Bilateral Throughout] - Lab 09/19/20 05:13 09/19/20 05:13 Most recent lab results ABG pH 7.442 (7.320-7.450) 09/14/20 03:54 ABG pCO2 33.4 mm Hg 09/11/20 05:40 ABG pO2 112.1 mm Hg (80.0-90.0) H 09/11/20 05:40 ABG HCO3 28.1 mmol/L (20.0-26.0) H 09/11/20 05:40 ABG O2 Saturation 98.4 % (95.0-99.0) 09/11/20 05:40 Calcium 8.9 mg/dL (8.4-10.2) 09/19/20 05:13 Phosphorus 8.00 mg/dL (2.5-4.5) H 09/08/20 12:02 Magnesium 1.80 mg/dL (1.7-2.3) 09/08/20 12:02 Urine Creatinine 182.4 mg/dL (0.1-20.0) H 09/08/20 Unknown Urine Sodium 40 mmol/L 09/08/20 Unknown Medications & Allergies - Medications Allergies/Adverse Reactions: Allergies Unable to Assess Allergy (Verified 09/07/20 13:43) intubated Home Medications: Home Medications Medication Instructions Recorded Confirmed Last Taken Type Albuterol Sulfate 60 mcg IH PRN 09/11/20 09/11/20 Unknown History Cholecalciferol (Vitamin D3) 25 tab PO DAILY 09/11/20 09/11/20 Unknown History Cozaar 25 tab PO DAILY 09/11/20 09/11/20 Unknown History HumaLOG 14 unit SQ AC 09/11/20 09/11/20 Unknown History Hydralazine HCl 50 tab PO TID 09/11/20 09/11/20 Unknown History Isosorbide Dinitrate 30 mg PO DAILY 09/11/20 09/11/20 Unknown History Lantus VIAL 54 units SQ HS 09/11/20 09/11/20 Unknown History Lasix 20 tab PO DAILY 09/11/20 09/11/20 Unknown History Nifedipine 30 tab PO DAILY 09/11/20 09/11/20 Unknown History Active Medications: Generic Name Dose Route Start Last Admin Trade Name Freq PRN Reason Stop Dose Admin Acetaminophen 400 mg 09/10/20 20:50 09/14/20 23:38 Acetaminophen 325 Mg/10.15 Ml Oral Liqd Unit Dose PO 400 mg Q4HR PRN Administration Non Cardiac Pain or Temp>100.5 Lipase/Protease/Amylase 1 each 09/09/20 09:40 Lipase 10,500/Protease 25,000/Amylase 43,750 (Units) Dr Armenta FEEDTUBE PRN PRN For Clogged Feeding Tube Hydrophilic Ointment 1 applic 09/07/20 13:08 Lip Therapy Vaseline TP Q2HR PRN Dry Lips Propofol 1,000 mg in 100 mls @ 4.995 mls/hr 09/08/20 20:00 09/15/20 07:00 Diprivan 10 Mg/Ml IV 0 mcg/kg/min TITR TAYLOR 0 mls/hr Titration Protocol 5 MCG/KG/MIN Sodium Chloride 100 mls @ 999 mls/hr 09/09/20 13:36 Nacl 0.9% IV JAYJAY PRN Hypotension Levetiracetam 1,500 mg/ 115 mls @ 400 mls/hr 09/11/20 10:00 09/18/20 21:40 Dextrose IV Infused BID TAYLOR Infusion Valproate Sodium 1,000 mg/ 110 mls @ 100 mls/hr 09/14/20 22:00 09/18/20 22:30 Sodium Chloride IV Infused Q12HR TAYLOR Infusion Insulin Human Lispro 0 unit 09/12/20 12:00 09/19/20 05:26 Insulin Lispro 100 Unit/Ml SUB-Q 3 unit Q6HR TAYLOR Administration Protocol Lansoprazole 30 mg 09/11/20 11:00 09/18/20 21:20 Lansoprazole 30 Mg Solutab FEEDTUBE 30 mg BID TAYLOR Administration Lorazepam 2 mg 09/08/20 00:14 09/14/20 13:36 Lorazepam 2 Mg/Ml Vial IV 2 mg Q4H PRN Administration Seizures Multi-Ingred Cream/Lotion/Oil/Oint 1 applic 09/07/20 13:08 Mineral Oil/Petrolatum, White Ophth Oint 3.5 Gm OU Q4HR PRN Dry Eye(s) Multivitamins 5 ml 09/09/20 12:00 09/18/20 10:11 Multivitamins 5 Ml Oral Liquid PO 5 ml QDAY TAYOLR Administration Ondansetron HCl 4 mg 09/07/20 17:55 09/19/20 04:00 Ondansetron 4 Mg/2 Ml Inj IV 4 mg Q8H PRN Administration Nausea And Vomiting Senna/Docusate Sodium 2 tab 09/13/20 11:00 09/18/20 21:21 Sennosides/Docusate Sodium 8.6/50 Mg Tab PO 2 tab BID TAYLOR Administration Simple Syrup 15 ml 09/09/20 09:40 09/17/20 17:43 Simple Syrup 15 Ml FEEDTUBE 15 ml PRN PRN Administration Hypoglycemia Simple Syrup 30 ml 09/09/20 09:40 Simple Syrup 15 Ml FEEDTUBE PRN PRN Hypoglycemia Sodium Bicarbonate 325 mg 09/09/20 09:40 Sodium Bicarbonate 325 Mg Tab FEEDTUBE PRN PRN For Clogged Feeding Tube Sodium Chloride 10 ml 09/07/20 22:00 09/18/20 21:21 Sodium Chloride 0.9% 10 Ml Flush Syringe IV 10 ml BID TAYLOR Administration Sodium Chloride 10 ml 09/07/20 17:55 Sodium Chloride 0.9% 10 Ml Flush Syringe IV PRN PRN LINE FLUSH
--- NOTE | 2020-09-19 10:05 | Progress Note ---
Assessment and Plan 65 y/o male with out of hospital cardiac arrest now sedated on ativan for possible seizures. 09/19/20: Ordered repeat COVID as surgery will not do trach and peg until negative status. Continue supportive measures. Prognosis is very very poor but family wishes to proceed with fdc care. 09/18/20: Unable to fit in MRI. Repeat CT showed improvement in edema but no clinical response is seen with this. Will continue Antiepileptic therapy. If wishes to proceed, will need trach and peg. Not sure if he would be candidate for PEG given his size but will ask surgery. Will need repeat COVID test prior to surgery. 09/15/20: Order MRI brain without contrast. Per surgery this will help to add more in regards to prognosis. Continue Valproic Acid and Keppra for seizure therapy. HD going now per renal. Overall prognosis remains guarded to poor. Please reach out to over the weekend to update her as I am not rounding this weekend, ,my partner will be covering. 09/14/20: Will load with valproic acid and then start to wean Diprovan. Spoke with today, very tearful on the phone. Explained to that Neurosurgery would come and eval denise but not a candidate for the other therapies she asked about since his edema is related to anoxic injury. Very very poor prognosis. 09/13/20: Per current neuro available, the neurologist from yesterday will call today. EEG is nonspecific but given CT of head findings consistent with anoxic encephalopathy, brain injury. As stated in neuro note, overall prognosis is very poor. Will continue to wean down diprovan to see if patient's seizures have been controlled with current Keppra dosing. Will call once she has spoken to neuro to get her thoughts on the next steps. (trach and peg, vs hospice as well as code status). Very very poor prognosis. 09/12/20: Long discussion with this am. Given recent head CT results, prognosis for full functional recovery is very POOR and neurology agrees. They will see in consult today. I have spoken to about AND and she is going to discuss with the family. The neurologist has stated they will reach out to the today. I am going to attempt to wean the ativan off and then start to wean the diprovan as long as no seizure activity is seen. Patient is now bradycardic, likely secondary to neuro state. I hope that he is not about to herniate. Patient is also like in Neurogenic DI given large urine out put volume. Very very poor prognosis. Continue supportive measures. 09/11/20: Will increase Keppra to 1500 BID given patient size. Continue Diprovan drip. Getting EEG today. HD per renal. Needs neurology consult however if patient is in status, needs to be transferred to an institution that can provide continuous EEG monitoring. Overll prognosis is very guarded to poor. Have not spoken to yet today. 09/10/20: Loaded with keppra and will start on Keppra BID. Needs EEG on therapy as well as OFF. If patient is in status, needs transfer to a location with continuous EEG capabilities. FiO2 has been weaned back down and is now at 60%, sats in the high 90's. HD per renal. Coags improving. Overall prognosis is guarded to poor. Spoke with on phone yesterday. Consult neurology tomorrow as not available on the weekend. Suggest checking for antibodies as he may be a candidate for convalsescent plasma. Per the , he was diagnosed with COVID on and spent 6 days inpatient at the [facility]. Remains positive now with multisystem organ failure. Explained to that outcome may not be good but need more time to assess. 09/09/20: EEG ordered on yesterday but not done. If done not read. Continue diprovan for now until EEG can be done or interpreted. State Coags but given his oozing from his vascath, will give Vitamin K and FFP. Patient is covid positive so agree with steroids. Not a candidate for remdesivir. Need to check for antibodies, may be a candidate for convalescent plasma. HD per renal. Given improvement in pH will stop bicarb drip. Feed patient. 1. Stop sedation 2. EEG 3. Needs neuro consult. 4. Art line placement 5. Stat repeat of labs, if renal function is truly that bad, will need renal consult. 6. Follow up COVID testing 7. Likely needs echo 8. Will place on bicarb drip. CCT 31 minutes. Subjective Date of service: 09/19/20 Principal diagnosis: Abnormal LFTs, s/p cardiac arrest, acute kidney injury with ATN Interval history: Currently on PSV, stable pulm status and tolerating. Unresponsive. Off all sedation. Neurosurgery told me they spoke with on yesterday but no note done. Clinically unchanged. Objective Vital Signs - 12hr 09/18/20 09/18/20 09/18/20 23:00 23:30 23:40 Temperature 98.0 F Pulse Rate 57 L 63 64 Pulse Rate [ From Monitor] Respiratory 30 H 31 H Rate Blood Pressure 166/80 180/96 182/93 O2 Sat by Pulse 100 Oximetry O2 Sat by Pulse 100 Oximetry [ Bilateral Throughout] 09/18/20 09/19/20 09/19/20 23:50 00:00 00:15 Temperature 98 F Pulse Rate 64 66 Pulse Rate [ 66 From Monitor] Respiratory 30 H Rate Blood Pressure 157/88 149/90 O2 Sat by Pulse 100 Oximetry O2 Sat by Pulse Oximetry [ Bilateral Throughout] 09/19/20 09/19/20 09/19/20 00:30 00:45 01:00 Temperature Pulse Rate 68 71 72 Pulse Rate [ From Monitor] Respiratory 30 H Rate Blood Pressure 154/85 143/82 145/77 O2 Sat by Pulse 100 Oximetry O2 Sat by Pulse Oximetry [ Bilateral Throughout] 09/19/20 09/19/20 09/19/20 01:12 01:15 01:30 Temperature Pulse Rate 74 75 75 Pulse Rate [ From Monitor] Respiratory Rate Blood Pressure 145/79 131/76 129/83 O2 Sat by Pulse 100 Oximetry O2 Sat by Pulse Oximetry [ Bilateral Throughout] 09/19/20 09/19/20 09/19/20 01:45 02:00 03:00 Temperature 98.0 F Pulse Rate 75 76 72 Pulse Rate [ From Monitor] Respiratory 30 H 30 H Rate Blood Pressure 122/83 142/82 140/67 O2 Sat by Pulse 100 100 Oximetry O2 Sat by Pulse 100 Oximetry [ Bilateral Throughout] 09/19/20 09/19/20 09/19/20 03:12 04:00 04:52 Temperature 98.3 F Pulse Rate 70 67 Pulse Rate [ 70 From Monitor] Respiratory 28 H Rate Blood Pressure 158/93 144/73 O2 Sat by Pulse 100 100 Oximetry O2 Sat by Pulse Oximetry [ Bilateral Throughout] 09/19/20 09/19/20 09/19/20 05:00 06:00 07:00 Temperature 97.9 F Pulse Rate 67 70 67 Pulse Rate [ From Monitor] Respiratory 30 H 14 8 L Rate Blood Pressure 158/83 157/79 153/68 O2 Sat by Pulse 100 100 100 Oximetry O2 Sat by Pulse Oximetry [ Bilateral Throughout] 09/19/20 09/19/20 08:00 08:40 Temperature Pulse Rate 65 64 Pulse Rate [ 66 From Monitor] Respiratory 31 H Rate Blood Pressure 155/86 153/72 O2 Sat by Pulse 97 100 Oximetry O2 Sat by Pulse Oximetry [ Bilateral Throughout] Constitutional: comatose, other (morbidly obese) Eyes: non-icteric ENT: other (orally intubated and sedated) Neck: supple Effort: normal Ascultation: Bilateral: diminished breath sounds Percussion: Bilateral: not dull Cardiovascular: other (bradycardic) Gastrointestinal: soft CBC and BMP: 09/19/20 05:13 09/19/20 05:13 ABG, PT/INR, D-dimer: ABG ABG pH 7.442 (7.320-7.450) 09/14/20 03:54 POC ABG pCO2 42.3 mmHg (32.0-48.0) 09/14/20 03:54 ABG pCO2 33.4 mm Hg 09/11/20 05:40 POC ABG pO2 71.1 mmHg (83-108) L 09/14/20 03:54 ABG pO2 112.1 mm Hg (80.0-90.0) H 09/11/20 05:40 POC ABG HCO3 28.2 09/14/20 03:54 ABG O2 Saturation 98.4 % (95.0-99.0) 09/11/20 05:40 PT/INR, D-dimer PT 16.1 Sec. (12.2-14.9) H 09/12/20 04:00 INR 1.31 (0.87-1.13) H 09/12/20 04:00 D-Dimer 8315.85 ng/mlDDU (0-234) H 09/07/20 14:00 Abnormal lab findings: Abnormal Labs 09/07/20 09/07/20 09/07/20 13:08 14:00 14:00 WBC 15.7 H RBC Hgb 10.2 L Hct 32.5 L MCHC 31 L RDW 17.5 H Lymph % (Auto) Mora % (Auto) Lymph # (Auto) Mora # (Auto) Seg Neutrophils % Seg Neuts % (Manual) 72.0 H Lymphocytes % (Manual) Monocytes % (Manual) 8.0 H Nucleated RBC % Seg Neutrophils # Seg Neutrophils # Man 11.3 H Lymphocytes # (Manual) Monocytes # (Manual) 1.3 H PT INR D-Dimer 8315.85 H ABG pH POC ABG pCO2 POC ABG pO2 ABG pO2 ABG HCO3 ABG Base Excess ABG Hemoglobin ABG Oxyhemoglobin ABG Sodium ABG Potassium ABG Chloride ABG Glucose Carboxyhemoglobin Sodium Potassium Chloride Carbon Dioxide BUN Creatinine Glucose POC Glucose Lactic Acid Calcium Phosphorus Ferritin Total Bilirubin Direct Bilirubin AST ALT Lactate Dehydrogenase Total Creatine Kinase Troponin T Total Protein Albumin Triglycerides Arterial Blood Glucose Arterial Blood Ionized Calcium Urine pH 8.0 H Urine Creatinine Salicylates Acetaminophen Coronavirus (PCR) 09/07/20 09/07/20 09/07/20 14:00 14:00 14:00 WBC RBC Hgb Hct MCHC RDW Lymph % (Auto) Mora % (Auto) Lymph # (Auto) Mora # (Auto) Seg Neutrophils % Seg Neuts % (Manual) Lymphocytes % (Manual) Monocytes % (Manual) Nucleated RBC % Seg Neutrophils # Seg Neutrophils # Man Lymphocytes # (Manual) Monocytes # (Manual) PT INR D-Dimer ABG pH POC ABG pCO2 POC ABG pO2 ABG pO2 ABG HCO3 ABG Base Excess ABG Hemoglobin ABG Oxyhemoglobin ABG Sodium ABG Potassium ABG Chloride ABG Glucose Carboxyhemoglobin Sodium Potassium Chloride Carbon Dioxide BUN Creatinine Glucose POC Glucose Lactic Acid 4.30 H* Calcium Phosphorus Ferritin > 2000.0 H Total Bilirubin Direct Bilirubin AST ALT Lactate Dehydrogenase 882 H Total Creatine Kinase 477 H Troponin T 0.076 H Total Protein Albumin Triglycerides Arterial Blood Glucose Arterial Blood Ionized Calcium Urine pH Urine Creatinine Salicylates Acetaminophen Coronavirus (PCR) 09/07/20 09/07/20 09/07/20 14:00 14:00 14:00 WBC RBC Hgb Hct MCHC RDW Lymph % (Auto) Mora % (Auto) Lymph # (Auto) Mora # (Auto) Seg Neutrophils % Seg Neuts % (Manual) Lymphocytes % (Manual) Monocytes % (Manual) Nucleated RBC % Seg Neutrophils # Seg Neutrophils # Man Lymphocytes # (Manual) Monocytes # (Manual) PT INR D-Dimer ABG pH POC ABG pCO2 POC ABG pO2 ABG pO2 ABG HCO3 ABG Base Excess ABG Hemoglobin ABG Oxyhemoglobin ABG Sodium ABG Potassium ABG Chloride ABG Glucose Carboxyhemoglobin Sodium Potassium Chloride Carbon Dioxide BUN Creatinine 1.8 H Glucose POC Glucose Lactic Acid Calcium Phosphorus Ferritin Total Bilirubin Direct Bilirubin AST 310 H ALT 339 H Lactate Dehydrogenase Total Creatine Kinase Troponin T Total Protein Albumin 3.6 L Triglycerides Arterial Blood Glucose Arterial Blood Ionized Calcium Urine pH Urine Creatinine Salicylates < 0.3 L Acetaminophen 5.0 L Coronavirus (PCR) 09/07/20 09/08/20 09/08/20 14:26 04:00 04:17 WBC RBC Hgb Hct MCHC RDW Lymph % (Auto) Mora % (Auto) Lymph # (Auto) Mora # (Auto) Seg Neutrophils % Seg Neuts % (Manual) Lymphocytes % (Manual) Monocytes % (Manual) Nucleated RBC % Seg Neutrophils # Seg Neutrophils # Man Lymphocytes # (Manual) Monocytes # (Manual) PT INR D-Dimer ABG pH 7.037 L 7.095 L POC ABG pCO2 92.4 H 68.0 H POC ABG pO2 130.8 H 43.5 L ABG pO2 ABG HCO3 ABG Base Excess ABG Hemoglobin 11.3 L 10.6 L ABG Oxyhemoglobin 70.8 L ABG Sodium ABG Potassium 7.0 H ABG Chloride 108.0 H ABG Glucose Carboxyhemoglobin 0.3 L Sodium Potassium 8.4 H* D Chloride Carbon Dioxide 17 L D BUN 38 H Creatinine 3.9 H D Glucose POC Glucose Lactic Acid Calcium 7.7 L D Phosphorus Ferritin Total Bilirubin Direct Bilirubin AST ALT Lactate Dehydrogenase Total Creatine Kinase Troponin T Total Protein Albumin Triglycerides Arterial Blood Glucose Arterial Blood Ionized Calcium 4.5 L Urine pH Urine Creatinine Salicylates Acetaminophen Coronavirus (PCR) 09/08/20 09/08/20 09/08/20 05:00 05:25 12:02 WBC RBC Hgb Hct MCHC RDW Lymph % (Auto) Mora % (Auto) Lymph # (Auto) Mora # (Auto) Seg Neutrophils % Seg Neuts % (Manual) Lymphocytes % (Manual) Monocytes % (Manual) Nucleated RBC % Seg Neutrophils # Seg Neutrophils # Man Lymphocytes # (Manual) Monocytes # (Manual) PT INR D-Dimer ABG pH 7.088 L POC ABG pCO2 69.1 H POC ABG pO2 35.2 L ABG pO2 ABG HCO3 ABG Base Excess ABG Hemoglobin 10.9 L ABG Oxyhemoglobin 57.1 L ABG Sodium ABG Potassium 7.0 H ABG Chloride 108.0 H ABG Glucose Carboxyhemoglobin 0.4 L Sodium Potassium 8.1 H* Chloride Carbon Dioxide 17 L BUN 38 H Creatinine 3.7 H Glucose POC Glucose Lactic Acid Calcium 8.0 L Phosphorus 8.00 H Ferritin Total Bilirubin Direct Bilirubin 0.5 H AST 3696 H ALT 3331 H Lactate Dehydrogenase Total Creatine Kinase Troponin T Total Protein Albumin 3.5 L Triglycerides Arterial Blood Glucose Arterial Blood Ionized Calcium 4.4 L Urine pH Urine Creatinine Salicylates Acetaminophen Coronavirus (PCR) 09/08/20 09/08/20 09/08/20 16:31 22:36 Unknown WBC RBC Hgb Hct MCHC RDW Lymph % (Auto) Mora % (Auto) Lymph # (Auto) Mora # (Auto) Seg Neutrophils % Seg Neuts % (Manual) Lymphocytes % (Manual) Monocytes % (Manual) Nucleated RBC % Seg Neutrophils # Seg Neutrophils # Man Lymphocytes # (Manual) Monocytes # (Manual) PT INR D-Dimer ABG pH POC ABG pCO2 POC ABG pO2 ABG pO2 ABG HCO3 ABG Base Excess ABG Hemoglobin ABG Oxyhemoglobin ABG Sodium ABG Potassium ABG Chloride ABG Glucose Carboxyhemoglobin Sodium Potassium 5.3 H D Chloride Carbon Dioxide BUN Creatinine Glucose POC Glucose 158 H Lactic Acid Calcium Phosphorus Ferritin Total Bilirubin Direct Bilirubin AST ALT Lactate Dehydrogenase Total Creatine Kinase Troponin T Total Protein Albumin Triglycerides Arterial Blood Glucose Arterial Blood Ionized Calcium Urine pH Urine Creatinine Salicylates Acetaminophen Coronavirus (PCR) Positive A 09/08/20 09/08/20 09/08/20 Unknown Unknown Unknown WBC 18.4 H RBC Hgb 10.1 L Hct 32.0 L MCHC RDW 18.2 H Lymph % (Auto) Mora % (Auto) Lymph # (Auto) Mora # (Auto) Seg Neutrophils % Seg Neuts % (Manual) 81.0 H Lymphocytes % (Manual) 2.0 L Monocytes % (Manual) Nucleated RBC % 1.0 H Seg Neutrophils # Seg Neutrophils # Man 14.9 H Lymphocytes # (Manual) 0.4 L Monocytes # (Manual) 1.1 H PT 21.2 H INR 1.83 H D-Dimer ABG pH POC ABG pCO2 POC ABG pO2 ABG pO2 ABG HCO3 ABG Base Excess ABG Hemoglobin ABG Oxyhemoglobin ABG Sodium ABG Potassium ABG Chloride ABG Glucose Carboxyhemoglobin Sodium Potassium Chloride Carbon Dioxide BUN Creatinine Glucose POC Glucose Lactic Acid Calcium Phosphorus Ferritin Total Bilirubin Direct Bilirubin AST ALT Lactate Dehydrogenase Total Creatine Kinase Troponin T Total Protein Albumin Triglycerides Arterial Blood Glucose Arterial Blood Ionized Calcium Urine pH Urine Creatinine 182.4 H Salicylates Acetaminophen Coronavirus (PCR) 09/09/20 09/09/20 09/09/20 03:14 04:20 04:20 WBC 16.3 H RBC 3.12 L Hgb 8.6 L Hct 26.8 L MCHC RDW 18.2 H Lymph % (Auto) 6.3 L Mora % (Auto) 8.8 H Lymph # (Auto) 1.0 L Mora # (Auto) 1.4 H Seg Neutrophils % 84.5 H Seg Neuts % (Manual) Lymphocytes % (Manual) Monocytes % (Manual) Nucleated RBC % Seg Neutrophils # 13.7 H Seg Neutrophils # Man Lymphocytes # (Manual) Monocytes # (Manual) PT INR D-Dimer ABG pH POC ABG pCO2 POC ABG pO2 148.5 H ABG pO2 ABG HCO3 ABG Base Excess ABG Hemoglobin 9.4 L ABG Oxyhemoglobin 98.8 H ABG Sodium 134.8 L ABG Potassium 5.0 H ABG Chloride ABG Glucose 222 H Carboxyhemoglobin 0.1 L Sodium Potassium 5.2 H Chloride Carbon Dioxide BUN 47 H Creatinine 4.3 H Glucose 211 H POC Glucose Lactic Acid Calcium 7.4 L Phosphorus Ferritin Total Bilirubin Direct Bilirubin AST 47655 H ALT 6206 H Lactate Dehydrogenase Total Creatine Kinase Troponin T Total Protein 5.6 L Albumin 3.0 L Triglycerides Arterial Blood Glucose 222 H Arterial Blood Ionized Calcium 3.8 L Urine pH Urine Creatinine Salicylates Acetaminophen Coronavirus (PCR) 09/09/20 09/09/20 09/09/20 10:00 12:23 18:22 WBC RBC Hgb Hct MCHC RDW Lymph % (Auto) Mora % (Auto) Lymph # (Auto) Mora # (Auto) Seg Neutrophils % Seg Neuts % (Manual) Lymphocytes % (Manual) Monocytes % (Manual) Nucleated RBC % Seg Neutrophils # Seg Neutrophils # Man Lymphocytes # (Manual) Monocytes # (Manual) PT 21.7 H INR 1.90 H D-Dimer ABG pH POC ABG pCO2 POC ABG pO2 ABG pO2 ABG HCO3 ABG Base Excess ABG Hemoglobin ABG Oxyhemoglobin ABG Sodium ABG Potassium ABG Chloride ABG Glucose Carboxyhemoglobin Sodium Potassium Chloride Carbon Dioxide BUN Creatinine Glucose POC Glucose 216 H 211 H Lactic Acid Calcium Phosphorus Ferritin Total Bilirubin Direct Bilirubin AST ALT Lactate Dehydrogenase Total Creatine Kinase Troponin T Total Protein Albumin Triglycerides Arterial Blood Glucose Arterial Blood Ionized Calcium Urine pH Urine Creatinine Salicylates Acetaminophen Coronavirus (PCR) 09/10/20 09/10/20 09/10/20 04:00 04:05 04:05 WBC 15.0 H RBC 3.06 L Hgb 8.6 L Hct 25.8 L MCHC RDW 18.0 H Lymph % (Auto) Mora % (Auto) Lymph # (Auto) Mora # (Auto) Seg Neutrophils % Seg Neuts % (Manual) 86.0 H Lymphocytes % (Manual) 6.0 L Monocytes % (Manual) 8.0 H Nucleated RBC % Seg Neutrophils # Seg Neutrophils # Man 12.9 H Lymphocytes # (Manual) 0.9 L Monocytes # (Manual) 1.2 H PT 18.4 H INR 1.54 H D-Dimer ABG pH POC ABG pCO2 POC ABG pO2 ABG pO2 ABG HCO3 ABG Base Excess ABG Hemoglobin ABG Oxyhemoglobin ABG Sodium ABG Potassium ABG Chloride ABG Glucose Carboxyhemoglobin Sodium 134 L Potassium Chloride 93.7 L Carbon Dioxide BUN 46 H Creatinine 3.6 H Glucose 275 H POC Glucose Lactic Acid Calcium 7.7 L Phosphorus Ferritin Total Bilirubin 1.30 H Direct Bilirubin AST 5899 H ALT 6440 H Lactate Dehydrogenase Total Creatine Kinase Troponin T Total Protein 5.9 L Albumin 3.3 L Triglycerides Arterial Blood Glucose Arterial Blood Ionized Calcium Urine pH Urine Creatinine Salicylates Acetaminophen Coronavirus (PCR) 09/10/20 09/10/20 09/10/20 04:35 12:06 17:42 WBC RBC Hgb Hct MCHC RDW Lymph % (Auto) Mora % (Auto) Lymph # (Auto) Mora # (Auto) Seg Neutrophils % Seg Neuts % (Manual) Lymphocytes % (Manual) Monocytes % (Manual) Nucleated RBC % Seg Neutrophils # Seg Neutrophils # Man Lymphocytes # (Manual) Monocytes # (Manual) PT INR D-Dimer ABG pH 7.464 H POC ABG pCO2 POC ABG pO2 ABG pO2 ABG HCO3 ABG Base Excess ABG Hemoglobin 9.9 L ABG Oxyhemoglobin ABG Sodium 131.6 L ABG Potassium ABG Chloride 97.0 L ABG Glucose 281 H Carboxyhemoglobin 0.1 L Sodium Potassium Chloride Carbon Dioxide BUN Creatinine Glucose POC Glucose 298 H 340 H Lactic Acid Calcium Phosphorus Ferritin Total Bilirubin Direct Bilirubin AST ALT Lactate Dehydrogenase Total Creatine Kinase Troponin T Total Protein Albumin Triglycerides Arterial Blood Glucose 281 H Arterial Blood Ionized Calcium 3.9 L Urine pH Urine Creatinine Salicylates Acetaminophen Coronavirus (PCR) 09/10/20 09/11/20 09/11/20 23:07 04:44 05:17 WBC RBC Hgb Hct MCHC RDW Lymph % (Auto) Mora % (Auto) Lymph # (Auto) Mora # (Auto) Seg Neutrophils % Seg Neuts % (Manual) Lymphocytes % (Manual) Monocytes % (Manual) Nucleated RBC % Seg Neutrophils # Seg Neutrophils # Man Lymphocytes # (Manual) Monocytes # (Manual) PT 16.9 H INR 1.39 H D-Dimer ABG pH POC ABG pCO2 POC ABG pO2 ABG pO2 ABG HCO3 ABG Base Excess ABG Hemoglobin ABG Oxyhemoglobin ABG Sodium ABG Potassium ABG Chloride ABG Glucose Carboxyhemoglobin Sodium Potassium Chloride Carbon Dioxide BUN Creatinine Glucose POC Glucose 367 H 416 H Lactic Acid Calcium Phosphorus Ferritin Total Bilirubin Direct Bilirubin AST ALT Lactate Dehydrogenase Total Creatine Kinase Troponin T Total Protein Albumin Triglycerides Arterial Blood Glucose Arterial Blood Ionized Calcium Urine pH Urine Creatinine Salicylates Acetaminophen Coronavirus (PCR) 09/11/20 09/11/20 09/11/20 05:40 12:01 17:50 WBC RBC Hgb Hct MCHC RDW Lymph % (Auto) Mora % (Auto) Lymph # (Auto) Mora # (Auto) Seg Neutrophils % Seg Neuts % (Manual) Lymphocytes % (Manual) Monocytes % (Manual) Nucleated RBC % Seg Neutrophils # Seg Neutrophils # Man Lymphocytes # (Manual) Monocytes # (Manual) PT INR D-Dimer ABG pH 7.543 H POC ABG pCO2 POC ABG pO2 ABG pO2 112.1 H ABG HCO3 28.1 H ABG Base Excess 5.4 H ABG Hemoglobin 8.4 L ABG Oxyhemoglobin ABG Sodium ABG Potassium ABG Chloride ABG Glucose Carboxyhemoglobin Sodium Potassium Chloride Carbon Dioxide BUN Creatinine Glucose POC Glucose 418 H 404 H Lactic Acid Calcium Phosphorus Ferritin Total Bilirubin Direct Bilirubin AST ALT Lactate Dehydrogenase Total Creatine Kinase Troponin T Total Protein Albumin Triglycerides Arterial Blood Glucose Arterial Blood Ionized Calcium Urine pH Urine Creatinine Salicylates Acetaminophen Coronavirus (PCR) 09/11/20 09/11/20 09/12/20 23:10 23:43 03:15 WBC RBC Hgb Hct MCHC RDW Lymph % (Auto) Mora % (Auto) Lymph # (Auto) Mora # (Auto) Seg Neutrophils % Seg Neuts % (Manual) Lymphocytes % (Manual) Monocytes % (Manual) Nucleated RBC % Seg Neutrophils # Seg Neutrophils # Man Lymphocytes # (Manual) Monocytes # (Manual) PT INR D-Dimer ABG pH POC ABG pCO2 POC ABG pO2 ABG pO2 ABG HCO3 ABG Base Excess ABG Hemoglobin ABG Oxyhemoglobin ABG Sodium ABG Potassium ABG Chloride ABG Glucose Carboxyhemoglobin Sodium 135 L Potassium Chloride 92.3 L Carbon Dioxide BUN 62 H Creatinine 3.7 H Glucose 406 H POC Glucose 372 H 359 H Lactic Acid Calcium Phosphorus Ferritin Total Bilirubin Direct Bilirubin AST 687 H ALT 3701 H Lactate Dehydrogenase Total Creatine Kinase Troponin T Total Protein 5.8 L Albumin 3.1 L Triglycerides Arterial Blood Glucose Arterial Blood Ionized Calcium Urine pH Urine Creatinine Salicylates Acetaminophen Coronavirus (PCR) 09/12/20 09/12/20 09/12/20 03:18 04:00 04:00 WBC 13.7 H RBC 3.30 L Hgb 9.3 L Hct 27.6 L MCHC RDW 17.5 H Lymph % (Auto) Mora % (Auto) Lymph # (Auto) Mora # (Auto) Seg Neutrophils % Seg Neuts % (Manual) 76.0 H Lymphocytes % (Manual) 11.0 L Monocytes % (Manual) 13.0 H Nucleated RBC % Seg Neutrophils # Seg Neutrophils # Man 10.4 H Lymphocytes # (Manual) Monocytes # (Manual) 1.8 H PT 16.1 H INR 1.31 H D-Dimer ABG pH 7.558 H POC ABG pCO2 POC ABG pO2 74.7 L ABG pO2 ABG HCO3 ABG Base Excess ABG Hemoglobin 9.7 L ABG Oxyhemoglobin ABG Sodium 132.4 L ABG Potassium ABG Chloride 95.0 L ABG Glucose 437 H Carboxyhemoglobin Sodium Potassium Chloride Carbon Dioxide BUN Creatinine Glucose POC Glucose Lactic Acid Calcium Phosphorus Ferritin Total Bilirubin Direct Bilirubin AST ALT Lactate Dehydrogenase Total Creatine Kinase Troponin T Total Protein Albumin Triglycerides Arterial Blood Glucose 437 H Arterial Blood Ionized Calcium 4.3 L Urine pH Urine Creatinine Salicylates Acetaminophen Coronavirus (PCR) 09/12/20 09/12/20 09/12/20 04:21 05:20 06:37 WBC RBC Hgb Hct MCHC RDW Lymph % (Auto) Mora % (Auto) Lymph # (Auto) Mora # (Auto) Seg Neutrophils % Seg Neuts % (Manual) Lymphocytes % (Manual) Monocytes % (Manual) Nucleated RBC % Seg Neutrophils # Seg Neutrophils # Man Lymphocytes # (Manual) Monocytes # (Manual) PT INR D-Dimer ABG pH POC ABG pCO2 POC ABG pO2 ABG pO2 ABG HCO3 ABG Base Excess ABG Hemoglobin ABG Oxyhemoglobin ABG Sodium ABG Potassium ABG Chloride ABG Glucose Carboxyhemoglobin Sodium Potassium Chloride Carbon Dioxide BUN Creatinine Glucose POC Glucose 417 H 397 H 370 H Lactic Acid Calcium Phosphorus Ferritin Total Bilirubin Direct Bilirubin AST ALT Lactate Dehydrogenase Total Creatine Kinase Troponin T Total Protein Albumin Triglycerides Arterial Blood Glucose Arterial Blood Ionized Calcium Urine pH Urine Creatinine Salicylates Acetaminophen Coronavirus (PCR) 09/12/20 09/12/20 09/12/20 11:56 17:14 21:52 WBC RBC Hgb Hct MCHC RDW Lymph % (Auto) Mora % (Auto) Lymph # (Auto) Mora # (Auto) Seg Neutrophils % Seg Neuts % (Manual) Lymphocytes % (Manual) Monocytes % (Manual) Nucleated RBC % Seg Neutrophils # Seg Neutrophils # Man Lymphocytes # (Manual) Monocytes # (Manual) PT INR D-Dimer ABG pH POC ABG pCO2 POC ABG pO2 ABG pO2 ABG HCO3 ABG Base Excess ABG Hemoglobin ABG Oxyhemoglobin ABG Sodium ABG Potassium ABG Chloride ABG Glucose Carboxyhemoglobin Sodium Potassium Chloride Carbon Dioxide BUN Creatinine Glucose POC Glucose 341 H 325 H 285 H Lactic Acid Calcium Phosphorus Ferritin Total Bilirubin Direct Bilirubin AST ALT Lactate Dehydrogenase Total Creatine Kinase Troponin T Total Protein Albumin Triglycerides Arterial Blood Glucose Arterial Blood Ionized Calcium Urine pH Urine Creatinine Salicylates Acetaminophen Coronavirus (PCR) 09/12/20 09/12/20 09/12/20 23:39 Unknown Unknown WBC RBC Hgb Hct MCHC RDW Lymph % (Auto) Mora % (Auto) Lymph # (Auto) Mora # (Auto) Seg Neutrophils % Seg Neuts % (Manual) Lymphocytes % (Manual) Monocytes % (Manual) Nucleated RBC % Seg Neutrophils # Seg Neutrophils # Man Lymphocytes # (Manual) Monocytes # (Manual) PT INR D-Dimer ABG pH POC ABG pCO2 POC ABG pO2 ABG pO2 ABG HCO3 ABG Base Excess ABG Hemoglobin ABG Oxyhemoglobin ABG Sodium ABG Potassium ABG Chloride ABG Glucose Carboxyhemoglobin Sodium 135 L Potassium Chloride 92.2 L Carbon Dioxide BUN 65 H Creatinine 3.5 H Glucose 418 H POC Glucose 338 H Lactic Acid Calcium Phosphorus Ferritin Total Bilirubin Direct Bilirubin AST 553 H ALT 3453 H Lactate Dehydrogenase Total Creatine Kinase Troponin T Total Protein 5.9 L Albumin 3.0 L Triglycerides 220 H Arterial Blood Glucose Arterial Blood Ionized Calcium Urine pH Urine Creatinine Salicylates Acetaminophen Coronavirus (PCR) 09/13/20 09/13/20 09/13/20 04:47 05:24 10:50 WBC RBC Hgb Hct MCHC RDW Lymph % (Auto) Mora % (Auto) Lymph # (Auto) Mora # (Auto) Seg Neutrophils % Seg Neuts % (Manual) Lymphocytes % (Manual) Monocytes % (Manual) Nucleated RBC % Seg Neutrophils # Seg Neutrophils # Man Lymphocytes # (Manual) Monocytes # (Manual) PT INR D-Dimer ABG pH 7.571 H POC ABG pCO2 POC ABG pO2 69.0 L ABG pO2 ABG HCO3 ABG Base Excess ABG Hemoglobin 10.1 L ABG Oxyhemoglobin 93.2 L ABG Sodium 134.0 L ABG Potassium ABG Chloride ABG Glucose 365 H Carboxyhemoglobin 0.4 L Sodium Potassium Chloride 96.6 L Carbon Dioxide 32 H BUN 76 H Creatinine 3.1 H Glucose 395 H POC Glucose 329 H Lactic Acid Calcium Phosphorus Ferritin Total Bilirubin Direct Bilirubin AST ALT Lactate Dehydrogenase Total Creatine Kinase Troponin T Total Protein Albumin Triglycerides Arterial Blood Glucose 365 H Arterial Blood Ionized Calcium Urine pH Urine Creatinine Salicylates Acetaminophen Coronavirus (PCR) 09/13/20 09/13/20 09/13/20 11:39 17:48 23:35 WBC RBC Hgb Hct MCHC RDW Lymph % (Auto) Mora % (Auto) Lymph # (Auto) Mora # (Auto) Seg Neutrophils % Seg Neuts % (Manual) Lymphocytes % (Manual) Monocytes % (Manual) Nucleated RBC % Seg Neutrophils # Seg Neutrophils # Man Lymphocytes # (Manual) Monocytes # (Manual) PT INR D-Dimer ABG pH POC ABG pCO2 POC ABG pO2 ABG pO2 ABG HCO3 ABG Base Excess ABG Hemoglobin ABG Oxyhemoglobin ABG Sodium ABG Potassium ABG Chloride ABG Glucose Carboxyhemoglobin Sodium Potassium Chloride Carbon Dioxide BUN Creatinine Glucose POC Glucose 344 H 286 H 223 H Lactic Acid Calcium Phosphorus Ferritin Total Bilirubin Direct Bilirubin AST ALT Lactate Dehydrogenase Total Creatine Kinase Troponin T Total Protein Albumin Triglycerides Arterial Blood Glucose Arterial Blood Ionized Calcium Urine pH Urine Creatinine Salicylates Acetaminophen Coronavirus (PCR) 09/14/20 09/14/20 09/14/20 03:54 05:34 10:27 WBC RBC Hgb Hct MCHC RDW Lymph % (Auto) Mora % (Auto) Lymph # (Auto) Mora # (Auto) Seg Neutrophils % Seg Neuts % (Manual) Lymphocytes % (Manual) Monocytes % (Manual) Nucleated RBC % Seg Neutrophils # Seg Neutrophils # Man Lymphocytes # (Manual) Monocytes # (Manual) PT INR D-Dimer ABG pH POC ABG pCO2 POC ABG pO2 71.1 L ABG pO2 ABG HCO3 ABG Base Excess ABG Hemoglobin 10.3 L ABG Oxyhemoglobin ABG Sodium 135.2 L ABG Potassium ABG Chloride ABG Glucose 281 H Carboxyhemoglobin Sodium Potassium Chloride 96.6 L Carbon Dioxide BUN 100 H Creatinine 3.9 H Glucose 286 H POC Glucose 252 H Lactic Acid Calcium Phosphorus Ferritin Total Bilirubin Direct Bilirubin AST 145 H ALT 1400 H Lactate Dehydrogenase Total Creatine Kinase Troponin T Total Protein 5.6 L Albumin 2.9 L Triglycerides Arterial Blood Glucose 281 H Arterial Blood Ionized Calcium Urine pH Urine Creatinine Salicylates Acetaminophen Coronavirus (PCR) 09/14/20 09/14/20 09/14/20 11:38 17:52 23:07 WBC RBC Hgb Hct MCHC RDW Lymph % (Auto) Mora % (Auto) Lymph # (Auto) Mora # (Auto) Seg Neutrophils % Seg Neuts % (Manual) Lymphocytes % (Manual) Monocytes % (Manual) Nucleated RBC % Seg Neutrophils # Seg Neutrophils # Man Lymphocytes # (Manual) Monocytes # (Manual) PT INR D-Dimer ABG pH POC ABG pCO2 POC ABG pO2 ABG pO2 ABG HCO3 ABG Base Excess ABG Hemoglobin ABG Oxyhemoglobin ABG Sodium ABG Potassium ABG Chloride ABG Glucose Carboxyhemoglobin Sodium Potassium Chloride Carbon Dioxide BUN Creatinine Glucose POC Glucose 247 H 247 H 256 H Lactic Acid Calcium Phosphorus Ferritin Total Bilirubin Direct Bilirubin AST ALT Lactate Dehydrogenase Total Creatine Kinase Troponin T Total Protein Albumin Triglycerides Arterial Blood Glucose Arterial Blood Ionized Calcium Urine pH Urine Creatinine Salicylates Acetaminophen Coronavirus (PCR) 09/15/20 09/15/20 09/15/20 04:54 11:24 17:48 WBC RBC Hgb Hct MCHC RDW Lymph % (Auto) Mora % (Auto) Lymph # (Auto) Mora # (Auto) Seg Neutrophils % Seg Neuts % (Manual) Lymphocytes % (Manual) Monocytes % (Manual) Nucleated RBC % Seg Neutrophils # Seg Neutrophils # Man Lymphocytes # (Manual) Monocytes # (Manual) PT INR D-Dimer ABG pH POC ABG pCO2 POC ABG pO2 ABG pO2 ABG HCO3 ABG Base Excess ABG Hemoglobin ABG Oxyhemoglobin ABG Sodium ABG Potassium ABG Chloride ABG Glucose Carboxyhemoglobin Sodium Potassium Chloride Carbon Dioxide BUN Creatinine Glucose POC Glucose 271 H 228 H 254 H Lactic Acid Calcium Phosphorus Ferritin Total Bilirubin Direct Bilirubin AST ALT Lactate Dehydrogenase Total Creatine Kinase Troponin T Total Protein Albumin Triglycerides Arterial Blood Glucose Arterial Blood Ionized Calcium Urine pH Urine Creatinine Salicylates Acetaminophen Coronavirus (PCR) 09/15/20 09/15/20 09/15/20 19:20 19:20 23:13 WBC 27.3 H RBC 3.16 L Hgb 8.8 L Hct 27.0 L MCHC RDW 19.7 H Lymph % (Auto) Mora % (Auto) Lymph # (Auto) Mora # (Auto) Seg Neutrophils % Seg Neuts % (Manual) 81.0 H Lymphocytes % (Manual) 9.0 L Monocytes % (Manual) 10.0 H Nucleated RBC % Seg Neutrophils # Seg Neutrophils # Man 22.1 H Lymphocytes # (Manual) Monocytes # (Manual) 2.7 H PT INR D-Dimer ABG pH POC ABG pCO2 POC ABG pO2 ABG pO2 ABG HCO3 ABG Base Excess ABG Hemoglobin ABG Oxyhemoglobin ABG Sodium ABG Potassium ABG Chloride ABG Glucose Carboxyhemoglobin Sodium Potassium Chloride Carbon Dioxide BUN 68 H Creatinine 2.8 H Glucose 288 H POC Glucose 259 H Lactic Acid Calcium Phosphorus Ferritin Total Bilirubin Direct Bilirubin AST ALT Lactate Dehydrogenase Total Creatine Kinase Troponin T Total Protein Albumin Triglycerides Arterial Blood Glucose Arterial Blood Ionized Calcium Urine pH Urine Creatinine Salicylates Acetaminophen Coronavirus (PCR) 09/16/20 09/16/20 09/16/20 05:27 09:40 11:48 WBC RBC Hgb Hct MCHC RDW Lymph % (Auto) Mora % (Auto) Lymph # (Auto) Mora # (Auto) Seg Neutrophils % Seg Neuts % (Manual) Lymphocytes % (Manual) Monocytes % (Manual) Nucleated RBC % Seg Neutrophils # Seg Neutrophils # Man Lymphocytes # (Manual) Monocytes # (Manual) PT INR D-Dimer ABG pH POC ABG pCO2 POC ABG pO2 ABG pO2 ABG HCO3 ABG Base Excess ABG Hemoglobin ABG Oxyhemoglobin ABG Sodium ABG Potassium ABG Chloride ABG Glucose Carboxyhemoglobin Sodium Potassium Chloride Carbon Dioxide 31 H BUN 77 H Creatinine 2.9 H Glucose 250 H POC Glucose 275 H 234 H Lactic Acid Calcium Phosphorus Ferritin Total Bilirubin Direct Bilirubin AST ALT Lactate Dehydrogenase Total Creatine Kinase Troponin T Total Protein Albumin Triglycerides Arterial Blood Glucose Arterial Blood Ionized Calcium Urine pH Urine Creatinine Salicylates Acetaminophen Coronavirus (PCR) 09/16/20 09/16/20 09/17/20 17:40 23:23 00:01 WBC RBC Hgb Hct MCHC RDW Lymph % (Auto) Mora % (Auto) Lymph # (Auto) Mora # (Auto) Seg Neutrophils % Seg Neuts % (Manual) Lymphocytes % (Manual) Monocytes % (Manual) Nucleated RBC % Seg Neutrophils # Seg Neutrophils # Man Lymphocytes # (Manual) Monocytes # (Manual) PT INR D-Dimer ABG pH POC ABG pCO2 POC ABG pO2 ABG pO2 ABG HCO3 ABG Base Excess ABG Hemoglobin ABG Oxyhemoglobin ABG Sodium ABG Potassium ABG Chloride ABG Glucose Carboxyhemoglobin Sodium Potassium Chloride Carbon Dioxide BUN Creatinine Glucose POC Glucose 172 H 161 H Lactic Acid 2.10 H* Calcium Phosphorus Ferritin Total Bilirubin Direct Bilirubin AST ALT Lactate Dehydrogenase Total Creatine Kinase Troponin T Total Protein Albumin Triglycerides Arterial Blood Glucose Arterial Blood Ionized Calcium Urine pH Urine Creatinine Salicylates Acetaminophen Coronavirus (PCR) 09/17/20 09/17/20 09/17/20 04:00 04:00 05:09 WBC 19.5 H RBC 3.03 L Hgb 8.6 L Hct 26.3 L MCHC RDW 19.4 H Lymph % (Auto) 8.7 L Mora % (Auto) 13.7 H Lymph # (Auto) Mora # (Auto) 2.7 H Seg Neutrophils % 76.9 H Seg Neuts % (Manual) Lymphocytes % (Manual) Monocytes % (Manual) Nucleated RBC % Seg Neutrophils # 15.0 H Seg Neutrophils # Man Lymphocytes # (Manual) Monocytes # (Manual) PT INR D-Dimer ABG pH POC ABG pCO2 POC ABG pO2 ABG pO2 ABG HCO3 ABG Base Excess ABG Hemoglobin ABG Oxyhemoglobin ABG Sodium ABG Potassium ABG Chloride ABG Glucose Carboxyhemoglobin Sodium 146 H Potassium 3.1 L Chloride Carbon Dioxide BUN 79 H Creatinine 2.6 H Glucose 122 H POC Glucose 116 H Lactic Acid Calcium Phosphorus Ferritin Total Bilirubin Direct Bilirubin AST 64 H ALT 516 H Lactate Dehydrogenase Total Creatine Kinase Troponin T Total Protein 5.7 L Albumin 2.8 L Triglycerides Arterial Blood Glucose Arterial Blood Ionized Calcium Urine pH Urine Creatinine Salicylates Acetaminophen Coronavirus (PCR) 09/17/20 09/17/20 09/18/20 13:52 17:38 05:16 WBC RBC Hgb Hct MCHC RDW Lymph % (Auto) Mora % (Auto) Lymph # (Auto) Mora # (Auto) Seg Neutrophils % Seg Neuts % (Manual) Lymphocytes % (Manual) Monocytes % (Manual) Nucleated RBC % Seg Neutrophils # Seg Neutrophils # Man Lymphocytes # (Manual) Monocytes # (Manual) PT INR D-Dimer ABG pH POC ABG pCO2 POC ABG pO2 ABG pO2 ABG HCO3 ABG Base Excess ABG Hemoglobin ABG Oxyhemoglobin ABG Sodium ABG Potassium ABG Chloride ABG Glucose Carboxyhemoglobin Sodium Potassium Chloride Carbon Dioxide BUN Creatinine Glucose POC Glucose 68 L 126 H Lactic Acid 2.90 H* Calcium Phosphorus Ferritin Total Bilirubin Direct Bilirubin AST ALT Lactate Dehydrogenase Total Creatine Kinase Troponin T Total Protein Albumin Triglycerides Arterial Blood Glucose Arterial Blood Ionized Calcium Urine pH Urine Creatinine Salicylates Acetaminophen Coronavirus (PCR) 09/18/20 09/18/20 09/18/20 05:30 05:30 11:42 WBC 18.2 H RBC 3.18 L Hgb 9.0 L Hct 27.2 L MCHC RDW 18.8 H Lymph % (Auto) Mora % (Auto) Lymph # (Auto) Mora # (Auto) Seg Neutrophils % Seg Neuts % (Manual) Lymphocytes % (Manual) Monocytes % (Manual) Nucleated RBC % Seg Neutrophils # Seg Neutrophils # Man Lymphocytes # (Manual) Monocytes # (Manual) PT INR D-Dimer ABG pH POC ABG pCO2 POC ABG pO2 ABG pO2 ABG HCO3 ABG Base Excess ABG Hemoglobin ABG Oxyhemoglobin ABG Sodium ABG Potassium ABG Chloride ABG Glucose Carboxyhemoglobin Sodium Potassium 3.1 L Chloride Carbon Dioxide BUN 73 H Creatinine 2.6 H Glucose 154 H POC Glucose 140 H Lactic Acid Calcium Phosphorus Ferritin Total Bilirubin Direct Bilirubin AST ALT Lactate Dehydrogenase Total Creatine Kinase Troponin T Total Protein Albumin Triglycerides Arterial Blood Glucose Arterial Blood Ionized Calcium Urine pH Urine Creatinine Salicylates Acetaminophen Coronavirus (PCR) 09/18/20 09/18/20 09/19/20 18:15 23:37 05:13 WBC 22.8 H RBC 3.30 L Hgb 9.2 L Hct 28.1 L MCHC RDW 18.2 H Lymph % (Auto) Mora % (Auto) Lymph # (Auto) Mora # (Auto) Seg Neutrophils % Seg Neuts % (Manual) 87.0 H Lymphocytes % (Manual) 5.0 L Monocytes % (Manual) Nucleated RBC % Seg Neutrophils # Seg Neutrophils # Man 19.8 H Lymphocytes # (Manual) 1.1 L Monocytes # (Manual) 1.6 H PT INR D-Dimer ABG pH POC ABG pCO2 POC ABG pO2 ABG pO2 ABG HCO3 ABG Base Excess ABG Hemoglobin ABG Oxyhemoglobin ABG Sodium ABG Potassium ABG Chloride ABG Glucose Carboxyhemoglobin Sodium Potassium Chloride Carbon Dioxide BUN Creatinine Glucose POC Glucose 149 H 153 H Lactic Acid Calcium Phosphorus Ferritin Total Bilirubin Direct Bilirubin AST ALT Lactate Dehydrogenase Total Creatine Kinase Troponin T Total Protein Albumin Triglycerides Arterial Blood Glucose Arterial Blood Ionized Calcium Urine pH Urine Creatinine Salicylates Acetaminophen Coronavirus (PCR) 09/19/20 09/19/20 05:13 05:25 WBC RBC Hgb Hct MCHC RDW Lymph % (Auto) Mora % (Auto) Lymph # (Auto) Mora # (Auto) Seg Neutrophils % Seg Neuts % (Manual) Lymphocytes % (Manual) Monocytes % (Manual) Nucleated RBC % Seg Neutrophils # Seg Neutrophils # Man Lymphocytes # (Manual) Monocytes # (Manual) PT INR D-Dimer ABG pH POC ABG pCO2 POC ABG pO2 ABG pO2 ABG HCO3 ABG Base Excess ABG Hemoglobin ABG Oxyhemoglobin ABG Sodium ABG Potassium ABG Chloride ABG Glucose Carboxyhemoglobin Sodium Potassium Chloride Carbon Dioxide BUN 55 H Creatinine 2.3 H Glucose 196 H POC Glucose 168 H Lactic Acid Calcium Phosphorus Ferritin Total Bilirubin Direct Bilirubin AST ALT Lactate Dehydrogenase Total Creatine Kinase Troponin T Total Protein Albumin Triglycerides Arterial Blood Glucose Arterial Blood Ionized Calcium Urine pH Urine Creatinine Salicylates Acetaminophen Coronavirus (PCR)
[2020-09-19] MEDS: levETIRAcetam 1,500 MG in DEXTROSE 5% IN WATER 100 ML IV SCH ×2 (10:49→22:04)
[2020-09-19] MEDS: VALPROATE SODIUM 1,000 MG in SODIUM CHLORIDE 0.9% 100 ML IV SCH ×2 (11:02→22:03)
[2020-09-19] MEDS: SENNOSIDES/DOCUSATE SODIUM 8.6/50 MG TAB PO SCH ×2 (11:03→22:04)
[2020-09-19] MEDS: LANSOPRAZOLE 30 MG SOLUTAB FEEDTUBE SCH ×2 (11:03→22:04)
[2020-09-19] MEDS: MULTIVITAMINS 5 ML ORAL LIQUID PO SCH (11:03)
--- NOTE | 2020-09-19 13:08 | Progress Note ---
Assessment and Plan Cultures: Blood culture 09/07/2020 no growth SARS CoV2 PCR positive 09/07/2020 urine culture: No growth HIV, hepatitis panel: Negative Assessment: 65 years old male with unknown medical history, morbidly obese, brought to the ED by EMS on 09/07/2020 secondary to passing out, found in out of hospital cardiac arrest status post resuscitation, intubated in the field: #[id number] cardiac arrest/shock #Bilateral pneumonia secondary to COVID-19 infection. Inflammatory markers elevated. D-dimer was 8315. apparently, patient was recently hospitalized at the [facility] for COVID-19 prior to admission here. Was not a candidate for remdesivir due to hepatic and renal failure. #Acute hypoxic respiratory failure: on the vent, minimal settings. #Acute renal failure: Creatinine elevated. Likely secondary to cardiac arrest/COVID-19 infection #Shock liver, transaminitis: Viral hepatitis panel negative. #Acute Encephalopathy: Initial GCS 3, noted myoclonic jerking.? Anoxic brain injury. Appreciate neurology evaluation. Recs: -continue off abx -Poor prognosis Will sign off. Please reconsult if needed. Marisol Stock MD, FACP [facility] ([facility] O: [phone] F: [phone] Subjective Date of service: 09/19/20 Principal diagnosis: Abnormal LFTs, s/p cardiac arrest, acute kidney injury with ATN Interval history: No fever. Remains on the vent. Unresponsive. Objective - Exam Narrative Exam: Physical Exam (reviewed in chart to minimize risk of transmission) Constitutional: deferred Head, Ears, Nose: deferred Eyes: deferred Neck: deferred Oral: deferred Cardiovascular: deferred Respiratory: deferred GI: deferred Musculoskeletal: deferred Skin: deferred Hem/Lymphatic: deferred Psych: deferred Neurological: deferred - Constitutional Vitals: Vital Signs Temp Pulse Resp BP Pulse Ox 97.8 F 65 28 H 130/71 100 09/19/20 12:14 09/19/20 12:43 09/19/20 12:43 09/19/20 12:43 09/19/20 12:43 Temperature -Last 24 Hours Temperature 97.8 F Temperature 97.9 F Temperature 98.3 F Temperature 98.0 F Temperature 98 F Temperature 98.0 F Temperature 97.7 F Temperature 98.2 F - Labs CBC & Chem 7: 09/19/20 05:13 09/19/20 05:13 Labs: Abnormal lab results 09/18/20 09/18/20 09/18/20 Range/Units 11:42 18:15 23:37 WBC (4.5-11.0) K/mm3 RBC (3.65-5.03) M/mm3 Hgb (11.8-15.2) gm/dl Hct (35.5-45.6) % RDW (13.2-15.2) % Seg Neuts % (Manual) (40.0-70.0) % Lymphocytes % (Manual) (13.4-35.0) % Seg Neutrophils # Man (1.8-7.7) K/mm3 Lymphocytes # (Manual) (1.2-5.4) K/mm3 Monocytes # (Manual) (0.0-0.8) K/mm3 BUN (9-20) mg/dL Creatinine (0.8-1.3) mg/dL Glucose (75-100) mg/dL POC Glucose 140 H 149 H 153 H (70-105) mg/dL 09/19/20 09/19/20 09/19/20 Range/Units 05:13 05:13 05:25 WBC 22.8 H (4.5-11.0) K/mm3 RBC 3.30 L (3.65-5.03) M/mm3 Hgb 9.2 L (11.8-15.2) gm/dl Hct 28.1 L (35.5-45.6) % RDW 18.2 H (13.2-15.2) % Seg Neuts % (Manual) 87.0 H (40.0-70.0) % Lymphocytes % (Manual) 5.0 L (13.4-35.0) % Seg Neutrophils # Man 19.8 H (1.8-7.7) K/mm3 Lymphocytes # (Manual) 1.1 L (1.2-5.4) K/mm3 Monocytes # (Manual) 1.6 H (0.0-0.8) K/mm3 BUN 55 H (9-20) mg/dL Creatinine 2.3 H (0.8-1.3) mg/dL Glucose 196 H (75-100) mg/dL POC Glucose 168 H (70-105) mg/dL 09/19/20 Range/Units 11:56 WBC (4.5-11.0) K/mm3 RBC (3.65-5.03) M/mm3 Hgb (11.8-15.2) gm/dl Hct (35.5-45.6) % RDW (13.2-15.2) % Seg Neuts % (Manual) (40.0-70.0) % Lymphocytes % (Manual) (13.4-35.0) % Seg Neutrophils # Man (1.8-7.7) K/mm3 Lymphocytes # (Manual) (1.2-5.4) K/mm3 Monocytes # (Manual) (0.0-0.8) K/mm3 BUN (9-20) mg/dL Creatinine (0.8-1.3) mg/dL Glucose (75-100) mg/dL POC Glucose 137 H (70-105) mg/dL
[2020-09-20] MEDS: INSULIN LISPRO 100 UNIT/ML SUB-Q SCH ×4 (00:30→19:29)
[2020-09-20 06:41] LABS: Basophils # (Auto) 0.1 K/mm3 (0.0-0.1); Basophils % (Auto) 0.4 % (0.0-1.8); Eosinophils # (Auto) 0.3 K/mm3 (0.0-0.4); Eosinophils % (Auto) 1.4 % (0.0-4.3); Hematocrit 26.4 % (35.5-45.6); Hemoglobin 8.5 gm/dl (11.8-15.2); Lymphocytes # (Auto) 1.9 K/mm3 (1.2-5.4); Lymphocytes % (Auto) 9.6 % (13.4-35.0); Mean Corpuscular HGB Conc 32 % (32-34); Mean Corpuscular Volume 86 fl (84-94); Monocytes # (Auto) 1.9 K/mm3 (0.0-0.8); Monocytes % (Auto) 9.6 % (0.0-7.3); Platelet Count 204 K/mm3 (140-440); Red Blood Count 3.07 M/mm3 (3.65-5.03); Red Cell Distribution Width 18.6 % (13.2-15.2)
[2020-09-20 06:49] LABS: Calcium 8.8 mg/dL (8.4-10.2)
--- NOTE | 2020-09-20 08:29 | Progress Note ---
Assessment and Plan 65 y/o male with out of hospital cardiac arrest now sedated on ativan for possible seizures. 09/20/20: Placed consult to surgery now that COVID is negative. However, patient is morbidly obese and his surgery will likely be a complicated one especially with peg placement. Await surgery eval and recs. HD per renal. Continue daily PSV trials, mental status precludes extubation traditionally but maybe able to wean off vent with stable airway such as trach. [facility] at this time based on CM notes. Prognosis is very poor, but after speaking with neurology and neurosurgery, patient wishes to continue aggressive measures. 09/19/20: Ordered repeat COVID as surgery will not do trach and peg until negative status. Continue supportive measures. Prognosis is very very poor but family wishes to proceed with retirement care. 09/18/20: Unable to fit in MRI. Repeat CT showed improvement in edema but no clinical response is seen with this. Will continue Antiepileptic therapy. If wishes to proceed, will need trach and peg. Not sure if he would be candidate for PEG given his size but will ask surgery. Will need repeat COVID test prior to surgery. 09/15/20: Order MRI brain without contrast. Per surgery this will help to add more in regards to prognosis. Continue Valproic Acid and Keppra for seizure therapy. HD going now per renal. Overall prognosis remains guarded to poor. Please reach out to over the weekend to update her as I am not rounding this weekend, ,my partner will be covering. 09/14/20: Will load with valproic acid and then start to wean Diprovan. Spoke with today, very tearful on the phone. Explained to that Neurosurgery would come and eval tonight but not a candidate for the other therapies she asked about since his edema is related to anoxic injury. Very very poor prognosis. 09/13/20: Per current neuro available, the neurologist from yesterday will call today. EEG is nonspecific but given CT of head findings consistent with anoxic encephalopathy, brain injury. As stated in neuro note, overall prognosis is very poor. Will continue to wean down diprovan to see if patient's seizures have been controlled with current Keppra dosing. Will call once she has spoken to neuro to get her thoughts on the next steps. (trach and peg, vs hospice as well as code status). Very very poor prognosis. 09/12/20: Long discussion with this am. Given recent head CT results, prognosis for full functional recovery is very POOR and neurology agrees. They will see in consult today. I have spoken to about AND and she is going to discuss with the family. The neurologist has stated they will reach out to the today. I am going to attempt to wean the ativan off and then start to wean the diprovan as long as no seizure activity is seen. Patient is now bradycardic, likely secondary to neuro state. I hope that he is not about to herniate. Patient is also like in Neurogenic DI given large urine out put volume. Very very poor prognosis. Continue supportive measures. 09/11/20: Will increase Keppra to 1500 BID given patient size. Continue Diprovan drip. Getting EEG today. HD per renal. Needs neurology consult however if patient is in status, needs to be transferred to an institution that can provide continuous EEG monitoring. Overll prognosis is very guarded to poor. Have not spoken to yet today. 09/10/20: Loaded with keppra and will start on Keppra BID. Needs EEG on therapy as well as OFF. If patient is in status, needs transfer to a location with continuous EEG capabilities. FiO2 has been weaned back down and is now at 60%, sats in the high 90's. HD per renal. Coags improving. Overall prognosis is guarded to poor. Spoke with on phone yesterday. Consult neurology [facility]ley duarte as not available on the weekend. Suggest checking for antibodies as he may be a candidate for convalsescent plasma. Per the , he was diagnosed with COVID on and spent 6 days inpatient at the [facility]. Remains positive now with multisystem organ failure. Explained to that outcome may not be good but need more time to assess. 09/09/20: EEG ordered on yesterday but not done. If done not read. Continue diprovan for now until EEG can be done or interpreted. State Coags but given his oozing from his vascath, will give Vitamin K and FFP. Patient is covid positive so agree with steroids. Not a candidate for remdesivir. Need to check for antibodies, may be a candidate for convalescent plasma. HD per renal. Given improvement in pH will stop bicarb drip. Feed patient. 1. Stop sedation 2. EEG 3. Needs neuro consult. 4. Art line placement 5. Stat repeat of labs, if renal function is truly that bad, will need renal consult. 6. Follow up COVID testing 7. Likely needs echo 8. Will place on bicarb drip. CCT 31 minutes. Subjective Date of service: 09/20/20 Principal diagnosis: Abnormal LFTs, s/p cardiac arrest, acute kidney injury with ATN Interval history: COVID test came back negative on yesterday. Likely will get HD today. Mental state is unchanged. Tolerated PSV yesterday and has since been placed back on this am. Remainder is negative. Objective Vital Signs - 12hr 09/19/20 09/19/20 09/19/20 20:38 20:42 21:00 Temperature Pulse Rate 61 62 61 Pulse Rate [ From Monitor] Respiratory 15 15 Rate Blood Pressure 144/68 144/68 129/68 O2 Sat by Pulse 100 100 100 Oximetry 09/19/20 09/19/20 09/19/20 22:00 23:00 23:41 Temperature Pulse Rate 58 L 59 L 61 Pulse Rate [ From Monitor] Respiratory 15 12 Rate Blood Pressure 137/74 146/77 154/76 O2 Sat by Pulse 100 100 100 Oximetry 09/20/20 09/20/20 09/20/20 00:00 01:00 02:00 Temperature 98.7 F Pulse Rate 59 L 61 60 Pulse Rate [ 64 From Monitor] Respiratory 12 6 L 30 H Rate Blood Pressure 162/74 145/69 151/76 O2 Sat by Pulse 100 100 100 Oximetry 09/20/20 09/20/20 09/20/20 03:00 04:00 04:20 Temperature 98.8 F Pulse Rate 65 65 63 Pulse Rate [ 64 From Monitor] Respiratory 21 30 H Rate Blood Pressure 160/79 144/73 144/73 O2 Sat by Pulse 100 100 100 Oximetry 09/20/20 09/20/20 09/20/20 05:00 06:00 07:00 Temperature Pulse Rate 61 64 64 Pulse Rate [ From Monitor] Respiratory 30 H 30 H 30 H Rate Blood Pressure 140/71 152/68 148/77 O2 Sat by Pulse 100 100 100 Oximetry Constitutional: comatose, other (morbidly obese) Eyes: non-icteric ENT: other (orally intubated and sedated) Neck: supple Effort: normal Ascultation: Bilateral: diminished breath sounds Percussion: Bilateral: not dull Cardiovascular: other (bradycardic) Gastrointestinal: soft CBC and BMP: 09/20/20 05:36 09/20/20 05:36 ABG, PT/INR, D-dimer: ABG ABG pH 7.442 (7.320-7.450) 09/14/20 03:54 POC ABG pCO2 42.3 mmHg (32.0-48.0) 09/14/20 03:54 ABG pCO2 33.4 mm Hg 09/11/20 05:40 POC ABG pO2 71.1 mmHg (83-108) L 09/14/20 03:54 ABG pO2 112.1 mm Hg (80.0-90.0) H 09/11/20 05:40 POC ABG HCO3 28.2 09/14/20 03:54 ABG O2 Saturation 98.4 % (95.0-99.0) 09/11/20 05:40 PT/INR, D-dimer PT 16.1 Sec. (12.2-14.9) H 09/12/20 04:00 INR 1.31 (0.87-1.13) H 09/12/20 04:00 D-Dimer 8315.85 ng/mlDDU (0-234) H 09/07/20 14:00 Abnormal lab findings: Abnormal Labs 09/07/20 09/07/20 09/07/20 13:08 14:00 14:00 WBC 15.7 H RBC Hgb 10.2 L Hct 32.5 L MCHC 31 L RDW 17.5 H Lymph % (Auto) Eddy % (Auto) Lymph # (Auto) Eddy # (Auto) Seg Neutrophils % Seg Neuts % (Manual) 72.0 H Lymphocytes % (Manual) Monocytes % (Manual) 8.0 H Nucleated RBC % Seg Neutrophils # Seg Neutrophils # Man 11.3 H Lymphocytes # (Manual) Monocytes # (Manual) 1.3 H PT INR D-Dimer 8315.85 H ABG pH POC ABG pCO2 POC ABG pO2 ABG pO2 ABG HCO3 ABG Base Excess ABG Hemoglobin ABG Oxyhemoglobin ABG Sodium ABG Potassium ABG Chloride ABG Glucose Carboxyhemoglobin Sodium Potassium Chloride Carbon Dioxide BUN Creatinine Glucose POC Glucose Lactic Acid Calcium Phosphorus Ferritin Total Bilirubin Direct Bilirubin AST ALT Lactate Dehydrogenase Total Creatine Kinase Troponin T Total Protein Albumin Triglycerides Arterial Blood Glucose Arterial Blood Ionized Calcium Urine pH 8.0 H Urine Creatinine Salicylates Acetaminophen Coronavirus (PCR) 09/07/20 09/07/20 09/07/20 14:00 14:00 14:00 WBC RBC Hgb Hct MCHC RDW Lymph % (Auto) Eddy % (Auto) Lymph # (Auto) Eddy # (Auto) Seg Neutrophils % Seg Neuts % (Manual) Lymphocytes % (Manual) Monocytes % (Manual) Nucleated RBC % Seg Neutrophils # Seg Neutrophils # Man Lymphocytes # (Manual) Monocytes # (Manual) PT INR D-Dimer ABG pH POC ABG pCO2 POC ABG pO2 ABG pO2 ABG HCO3 ABG Base Excess ABG Hemoglobin ABG Oxyhemoglobin ABG Sodium ABG Potassium ABG Chloride ABG Glucose Carboxyhemoglobin Sodium Potassium Chloride Carbon Dioxide BUN Creatinine Glucose POC Glucose Lactic Acid 4.30 H* Calcium Phosphorus Ferritin > 2000.0 H Total Bilirubin Direct Bilirubin AST ALT Lactate Dehydrogenase 882 H Total Creatine Kinase 477 H Troponin T 0.076 H Total Protein Albumin Triglycerides Arterial Blood Glucose Arterial Blood Ionized Calcium Urine pH Urine Creatinine Salicylates Acetaminophen Coronavirus (PCR) 09/07/20 09/07/20 09/07/20 14:00 14:00 14:00 WBC RBC Hgb Hct MCHC RDW Lymph % (Auto) Eddy % (Auto) Lymph # (Auto) Eddy # (Auto) Seg Neutrophils % Seg Neuts % (Manual) Lymphocytes % (Manual) Monocytes % (Manual) Nucleated RBC % Seg Neutrophils # Seg Neutrophils # Man Lymphocytes # (Manual) Monocytes # (Manual) PT INR D-Dimer ABG pH POC ABG pCO2 POC ABG pO2 ABG pO2 ABG HCO3 ABG Base Excess ABG Hemoglobin ABG Oxyhemoglobin ABG Sodium ABG Potassium ABG Chloride ABG Glucose Carboxyhemoglobin Sodium Potassium Chloride Carbon Dioxide BUN Creatinine 1.8 H Glucose POC Glucose Lactic Acid Calcium Phosphorus Ferritin Total Bilirubin Direct Bilirubin AST 310 H ALT 339 H Lactate Dehydrogenase Total Creatine Kinase Troponin T Total Protein Albumin 3.6 L Triglycerides Arterial Blood Glucose Arterial Blood Ionized Calcium Urine pH Urine Creatinine Salicylates < 0.3 L Acetaminophen 5.0 L Coronavirus (PCR) 09/07/20 09/08/20 09/08/20 14:26 04:00 04:17 WBC RBC Hgb Hct MCHC RDW Lymph % (Auto) Eddy % (Auto) Lymph # (Auto) Eddy # (Auto) Seg Neutrophils % Seg Neuts % (Manual) Lymphocytes % (Manual) Monocytes % (Manual) Nucleated RBC % Seg Neutrophils # Seg Neutrophils # Man Lymphocytes # (Manual) Monocytes # (Manual) PT INR D-Dimer ABG pH 7.037 L 7.095 L POC ABG pCO2 92.4 H 68.0 H POC ABG pO2 130.8 H 43.5 L ABG pO2 ABG HCO3 ABG Base Excess ABG Hemoglobin 11.3 L 10.6 L ABG Oxyhemoglobin 70.8 L ABG Sodium ABG Potassium 7.0 H ABG Chloride 108.0 H ABG Glucose Carboxyhemoglobin 0.3 L Sodium Potassium 8.4 H* D Chloride Carbon Dioxide 17 L D BUN 38 H Creatinine 3.9 H D Glucose POC Glucose Lactic Acid Calcium 7.7 L D Phosphorus Ferritin Total Bilirubin Direct Bilirubin AST ALT Lactate Dehydrogenase Total Creatine Kinase Troponin T Total Protein Albumin Triglycerides Arterial Blood Glucose Arterial Blood Ionized Calcium 4.5 L Urine pH Urine Creatinine Salicylates Acetaminophen Coronavirus (PCR) 09/08/20 09/08/20 09/08/20 05:00 05:25 12:02 WBC RBC Hgb Hct MCHC RDW Lymph % (Auto) Eddy % (Auto) Lymph # (Auto) Eddy # (Auto) Seg Neutrophils % Seg Neuts % (Manual) Lymphocytes % (Manual) Monocytes % (Manual) Nucleated RBC % Seg Neutrophils # Seg Neutrophils # Man Lymphocytes # (Manual) Monocytes # (Manual) PT INR D-Dimer ABG pH 7.088 L POC ABG pCO2 69.1 H POC ABG pO2 35.2 L ABG pO2 ABG HCO3 ABG Base Excess ABG Hemoglobin 10.9 L ABG Oxyhemoglobin 57.1 L ABG Sodium ABG Potassium 7.0 H ABG Chloride 108.0 H ABG Glucose Carboxyhemoglobin 0.4 L Sodium Potassium 8.1 H* Chloride Carbon Dioxide 17 L BUN 38 H Creatinine 3.7 H Glucose POC Glucose Lactic Acid Calcium 8.0 L Phosphorus 8.00 H Ferritin Total Bilirubin Direct Bilirubin 0.5 H AST 3696 H ALT 3331 H Lactate Dehydrogenase Total Creatine Kinase Troponin T Total Protein Albumin 3.5 L Triglycerides Arterial Blood Glucose Arterial Blood Ionized Calcium 4.4 L Urine pH Urine Creatinine Salicylates Acetaminophen Coronavirus (PCR) 09/08/20 09/08/20 09/08/20 16:31 22:36 Unknown WBC RBC Hgb Hct MCHC RDW Lymph % (Auto) Eddy % (Auto) Lymph # (Auto) Eddy # (Auto) Seg Neutrophils % Seg Neuts % (Manual) Lymphocytes % (Manual) Monocytes % (Manual) Nucleated RBC % Seg Neutrophils # Seg Neutrophils # Man Lymphocytes # (Manual) Monocytes # (Manual) PT INR D-Dimer ABG pH POC ABG pCO2 POC ABG pO2 ABG pO2 ABG HCO3 ABG Base Excess ABG Hemoglobin ABG Oxyhemoglobin ABG Sodium ABG Potassium ABG Chloride ABG Glucose Carboxyhemoglobin Sodium Potassium 5.3 H D Chloride Carbon Dioxide BUN Creatinine Glucose POC Glucose 158 H Lactic Acid Calcium Phosphorus Ferritin Total Bilirubin Direct Bilirubin AST ALT Lactate Dehydrogenase Total Creatine Kinase Troponin T Total Protein Albumin Triglycerides Arterial Blood Glucose Arterial Blood Ionized Calcium Urine pH Urine Creatinine Salicylates Acetaminophen Coronavirus (PCR) Positive A 09/08/20 09/08/20 09/08/20 Unknown Unknown Unknown WBC 18.4 H RBC Hgb 10.1 L Hct 32.0 L MCHC RDW 18.2 H Lymph % (Auto) Eddy % (Auto) Lymph # (Auto) Eddy # (Auto) Seg Neutrophils % Seg Neuts % (Manual) 81.0 H Lymphocytes % (Manual) 2.0 L Monocytes % (Manual) Nucleated RBC % 1.0 H Seg Neutrophils # Seg Neutrophils # Man 14.9 H Lymphocytes # (Manual) 0.4 L Monocytes # (Manual) 1.1 H PT 21.2 H INR 1.83 H D-Dimer ABG pH POC ABG pCO2 POC ABG pO2 ABG pO2 ABG HCO3 ABG Base Excess ABG Hemoglobin ABG Oxyhemoglobin ABG Sodium ABG Potassium ABG Chloride ABG Glucose Carboxyhemoglobin Sodium Potassium Chloride Carbon Dioxide BUN Creatinine Glucose POC Glucose Lactic Acid Calcium Phosphorus Ferritin Total Bilirubin Direct Bilirubin AST ALT Lactate Dehydrogenase Total Creatine Kinase Troponin T Total Protein Albumin Triglycerides Arterial Blood Glucose Arterial Blood Ionized Calcium Urine pH Urine Creatinine 182.4 H Salicylates Acetaminophen Coronavirus (PCR) 09/09/20 09/09/20 09/09/20 03:14 04:20 04:20 WBC 16.3 H RBC 3.12 L Hgb 8.6 L Hct 26.8 L MCHC RDW 18.2 H Lymph % (Auto) 6.3 L Eddy % (Auto) 8.8 H Lymph # (Auto) 1.0 L Eddy # (Auto) 1.4 H Seg Neutrophils % 84.5 H Seg Neuts % (Manual) Lymphocytes % (Manual) Monocytes % (Manual) Nucleated RBC % Seg Neutrophils # 13.7 H Seg Neutrophils # Man Lymphocytes # (Manual) Monocytes # (Manual) PT INR D-Dimer ABG pH POC ABG pCO2 POC ABG pO2 148.5 H ABG pO2 ABG HCO3 ABG Base Excess ABG Hemoglobin 9.4 L ABG Oxyhemoglobin 98.8 H ABG Sodium 134.8 L ABG Potassium 5.0 H ABG Chloride ABG Glucose 222 H Carboxyhemoglobin 0.1 L Sodium Potassium 5.2 H Chloride Carbon Dioxide BUN 47 H Creatinine 4.3 H Glucose 211 H POC Glucose Lactic Acid Calcium 7.4 L Phosphorus Ferritin Total Bilirubin [place] 51382 H ALT 6206 H Lactate Dehydrogenase Total Creatine Kinase Troponin T Total Protein 5.6 L Albumin 3.0 L Triglycerides Arterial Blood Glucose 222 H Arterial Blood Ionized Calcium 3.8 L Urine pH Urine Creatinine Salicylates Acetaminophen Coronavirus (PCR) 09/09/20 09/09/20 09/09/20 10:00 12:23 18:22 WBC RBC Hgb Hct MCHC RDW Lymph % (Auto) Eddy % (Auto) Lymph # (Auto) Eddy # (Auto) Seg Neutrophils % Seg Neuts % (Manual) Lymphocytes % (Manual) Monocytes % (Manual) Nucleated RBC % Seg Neutrophils # Seg Neutrophils # Man Lymphocytes # (Manual) Monocytes # (Manual) PT 21.7 H INR 1.90 H D-Dimer ABG pH POC ABG pCO2 POC ABG pO2 ABG pO2 ABG HCO3 ABG Base Excess ABG Hemoglobin ABG Oxyhemoglobin ABG Sodium ABG Potassium ABG Chloride ABG Glucose Carboxyhemoglobin Sodium Potassium Chloride Carbon Dioxide BUN Creatinine Glucose POC Glucose 216 H 211 H Lactic Acid Calcium Phosphorus Ferritin Total Bilirubin Direct Bilirubin AST ALT Lactate Dehydrogenase Total Creatine Kinase Troponin T Total Protein Albumin Triglycerides Arterial Blood Glucose Arterial Blood Ionized Calcium Urine pH Urine Creatinine Salicylates Acetaminophen Coronavirus (PCR) 09/10/20 09/10/20 09/10/20 04:00 04:05 04:05 WBC 15.0 H RBC 3.06 L Hgb 8.6 L Hct 25.8 L MCHC RDW 18.0 H Lymph % (Auto) Eddy % (Auto) Lymph # (Auto) Eddy # (Auto) Seg Neutrophils % Seg Neuts % (Manual) 86.0 H Lymphocytes % (Manual) 6.0 L Monocytes % (Manual) 8.0 H Nucleated RBC % Seg Neutrophils # Seg Neutrophils # Man 12.9 H Lymphocytes # (Manual) 0.9 L Monocytes # (Manual) 1.2 H PT 18.4 H INR 1.54 H D-Dimer ABG pH POC ABG pCO2 POC ABG pO2 ABG pO2 ABG HCO3 ABG Base Excess ABG Hemoglobin ABG Oxyhemoglobin ABG Sodium ABG Potassium ABG Chloride ABG Glucose Carboxyhemoglobin Sodium 134 L Potassium Chloride 93.7 L Carbon Dioxide BUN 46 H Creatinine 3.6 H Glucose 275 H POC Glucose Lactic Acid Calcium 7.7 L Phosphorus Ferritin Total Bilirubin 1.30 H Direct Bilirubin AST 5899 H ALT 6440 H Lactate Dehydrogenase Total Creatine Kinase Troponin T Total Protein 5.9 L Albumin 3.3 L Triglycerides Arterial Blood Glucose Arterial Blood Ionized Calcium Urine pH Urine Creatinine Salicylates Acetaminophen Coronavirus (PCR) 09/10/20 09/10/20 09/10/20 04:35 12:06 17:42 WBC RBC Hgb Hct MCHC RDW Lymph % (Auto) Eddy % (Auto) Lymph # (Auto) Eddy # (Auto) Seg Neutrophils % Seg Neuts % (Manual) Lymphocytes % (Manual) Monocytes % (Manual) Nucleated RBC % Seg Neutrophils # Seg Neutrophils # Man Lymphocytes # (Manual) Monocytes # (Manual) PT INR D-Dimer ABG pH 7.464 H POC ABG pCO2 POC ABG pO2 ABG pO2 ABG HCO3 ABG Base Excess ABG Hemoglobin 9.9 L ABG Oxyhemoglobin ABG Sodium 131.6 L ABG Potassium ABG Chloride 97.0 L ABG Glucose 281 H Carboxyhemoglobin 0.1 L Sodium Potassium Chloride Carbon Dioxide BUN Creatinine Glucose POC Glucose 298 H 340 H Lactic Acid Calcium Phosphorus Ferritin Total Bilirubin Direct Bilirubin AST ALT Lactate Dehydrogenase Total Creatine Kinase Troponin T Total Protein Albumin Triglycerides Arterial Blood Glucose 281 H Arterial Blood Ionized Calcium 3.9 L Urine pH Urine Creatinine Salicylates Acetaminophen Coronavirus (PCR) 09/10/20 09/11/20 09/11/20 23:07 04:44 05:17 WBC RBC Hgb Hct MCHC RDW Lymph % (Auto) Eddy % (Auto) Lymph # (Auto) Eddy # (Auto) Seg Neutrophils % Seg Neuts % (Manual) Lymphocytes % (Manual) Monocytes % (Manual) Nucleated RBC % Seg Neutrophils # Seg Neutrophils # Man Lymphocytes # (Manual) Monocytes # (Manual) PT 16.9 H INR 1.39 H D-Dimer ABG pH POC ABG pCO2 POC ABG pO2 ABG pO2 ABG HCO3 ABG Base Excess ABG Hemoglobin ABG Oxyhemoglobin ABG Sodium ABG Potassium ABG Chloride ABG Glucose Carboxyhemoglobin Sodium Potassium Chloride Carbon Dioxide BUN Creatinine Glucose POC Glucose 367 H 416 H Lactic Acid Calcium Phosphorus Ferritin Total Bilirubin Direct Bilirubin AST ALT Lactate Dehydrogenase Total Creatine Kinase Troponin T Total Protein Albumin Triglycerides Arterial Blood Glucose Arterial Blood Ionized Calcium Urine pH Urine Creatinine Salicylates Acetaminophen Coronavirus (PCR) 09/11/20 09/11/20 09/11/20 05:40 12:01 17:50 WBC RBC Hgb Hct MCHC RDW Lymph % (Auto) Eddy % (Auto) Lymph # (Auto) Eddy # (Auto) Seg Neutrophils % Seg Neuts % (Manual) Lymphocytes % (Manual) Monocytes % (Manual) Nucleated RBC % Seg Neutrophils # Seg Neutrophils # Man Lymphocytes # (Manual) Monocytes # (Manual) PT INR D-Dimer ABG pH 7.543 H POC ABG pCO2 POC ABG pO2 ABG pO2 112.1 H ABG HCO3 28.1 H ABG Base Excess 5.4 H ABG Hemoglobin 8.4 L ABG Oxyhemoglobin ABG Sodium ABG Potassium ABG Chloride ABG Glucose Carboxyhemoglobin Sodium Potassium Chloride Carbon Dioxide BUN Creatinine Glucose POC Glucose 418 H 404 H Lactic Acid Calcium Phosphorus Ferritin Total Bilirubin Direct Bilirubin AST ALT Lactate Dehydrogenase Total Creatine Kinase Troponin T Total Protein Albumin Triglycerides Arterial Blood Glucose Arterial Blood Ionized Calcium Urine pH Urine Creatinine Salicylates Acetaminophen Coronavirus (PCR) 09/11/20 09/11/20 09/12/20 23:10 23:43 03:15 WBC RBC Hgb Hct MCHC RDW Lymph % (Auto) Eddy % (Auto) Lymph # (Auto) Eddy # (Auto) Seg Neutrophils % Seg Neuts % (Manual) Lymphocytes % (Manual) Monocytes % (Manual) Nucleated RBC % Seg Neutrophils # Seg Neutrophils # Man Lymphocytes # (Manual) Monocytes # (Manual) PT INR D-Dimer ABG pH POC ABG pCO2 POC ABG pO2 ABG pO2 ABG HCO3 ABG Base Excess ABG Hemoglobin ABG Oxyhemoglobin ABG Sodium ABG Potassium ABG Chloride ABG Glucose Carboxyhemoglobin Sodium 135 L Potassium Chloride 92.3 L Carbon Dioxide BUN 62 H Creatinine 3.7 H Glucose 406 H POC Glucose 372 H 359 H Lactic Acid Calcium Phosphorus Ferritin Total Bilirubin Direct Bilirubin AST 687 H ALT 3701 H Lactate Dehydrogenase Total Creatine Kinase Troponin T Total Protein 5.8 L Albumin 3.1 L Triglycerides Arterial Blood Glucose Arterial Blood Ionized Calcium Urine pH Urine Creatinine Salicylates Acetaminophen Coronavirus (PCR) 09/12/20 09/12/20 09/12/20 03:18 04:00 04:00 WBC 13.7 H RBC 3.30 L Hgb 9.3 L Hct 27.6 L MCHC RDW 17.5 H Lymph % (Auto) Eddy % (Auto) Lymph # (Auto) Eddy # (Auto) Seg Neutrophils % Seg Neuts % (Manual) 76.0 H Lymphocytes % (Manual) 11.0 L Monocytes % (Manual) 13.0 H Nucleated RBC % Seg Neutrophils # Seg Neutrophils # Man 10.4 H Lymphocytes # (Manual) Monocytes # (Manual) 1.8 H PT 16.1 H INR 1.31 H D-Dimer ABG pH 7.558 H POC ABG pCO2 POC ABG pO2 74.7 L ABG pO2 ABG HCO3 ABG Base Excess ABG Hemoglobin 9.7 L ABG Oxyhemoglobin ABG Sodium 132.4 L ABG Potassium ABG Chloride 95.0 L ABG Glucose 437 H Carboxyhemoglobin Sodium Potassium Chloride Carbon Dioxide BUN Creatinine Glucose POC Glucose Lactic Acid Calcium Phosphorus Ferritin Total Bilirubin Direct Bilirubin AST ALT Lactate Dehydrogenase Total Creatine Kinase Troponin T Total Protein Albumin Triglycerides Arterial Blood Glucose 437 H Arterial Blood Ionized Calcium 4.3 L Urine pH Urine Creatinine Salicylates Acetaminophen Coronavirus (PCR) 09/12/20 09/12/20 09/12/20 04:21 05:20 06:37 WBC RBC Hgb Hct MCHC RDW Lymph % (Auto) Eddy % (Auto) Lymph # (Auto) Eddy # (Auto) Seg Neutrophils % Seg Neuts % (Manual) Lymphocytes % (Manual) Monocytes % (Manual) Nucleated RBC % Seg Neutrophils # Seg Neutrophils # Man Lymphocytes # (Manual) Monocytes # (Manual) PT INR D-Dimer ABG pH POC ABG pCO2 POC ABG pO2 ABG pO2 ABG HCO3 ABG Base Excess ABG Hemoglobin ABG Oxyhemoglobin ABG Sodium ABG Potassium ABG Chloride ABG Glucose Carboxyhemoglobin Sodium Potassium Chloride Carbon Dioxide BUN Creatinine Glucose POC Glucose 417 H 397 H 370 H Lactic Acid Calcium Phosphorus Ferritin Total Bilirubin Direct Bilirubin AST ALT Lactate Dehydrogenase Total Creatine Kinase Troponin T Total Protein Albumin Triglycerides Arterial Blood Glucose Arterial Blood Ionized Calcium Urine pH Urine Creatinine Salicylates Acetaminophen Coronavirus (PCR) 09/12/20 09/12/20 09/12/20 11:56 17:14 21:52 WBC RBC Hgb Hct MCHC RDW Lymph % (Auto) Eddy % (Auto) Lymph # (Auto) Eddy # (Auto) Seg Neutrophils % Seg Neuts % (Manual) Lymphocytes % (Manual) Monocytes % (Manual) Nucleated RBC % Seg Neutrophils # Seg Neutrophils # Man Lymphocytes # (Manual) Monocytes # (Manual) PT INR D-Dimer ABG pH POC ABG pCO2 POC ABG pO2 ABG pO2 ABG HCO3 ABG Base Excess ABG Hemoglobin ABG Oxyhemoglobin ABG Sodium ABG Potassium ABG Chloride ABG Glucose Carboxyhemoglobin Sodium Potassium Chloride Carbon Dioxide BUN Creatinine Glucose POC Glucose 341 H 325 H 285 H Lactic Acid Calcium Phosphorus Ferritin Total Bilirubin Direct Bilirubin AST ALT Lactate Dehydrogenase Total Creatine Kinase Troponin T Total Protein Albumin Triglycerides Arterial Blood Glucose Arterial Blood Ionized Calcium Urine pH Urine Creatinine Salicylates Acetaminophen Coronavirus (PCR) 09/12/20 09/12/20 09/12/20 23:39 Unknown Unknown WBC RBC Hgb Hct MCHC RDW Lymph % (Auto) Eddy % (Auto) Lymph # (Auto) Eddy # (Auto) Seg Neutrophils % Seg Neuts % (Manual) Lymphocytes % (Manual) Monocytes % (Manual) Nucleated RBC % Seg Neutrophils # Seg Neutrophils # Man Lymphocytes # (Manual) Monocytes # (Manual) PT INR D-Dimer ABG pH POC ABG pCO2 POC ABG pO2 ABG pO2 ABG HCO3 ABG Base Excess ABG Hemoglobin ABG Oxyhemoglobin ABG Sodium ABG Potassium ABG Chloride ABG Glucose Carboxyhemoglobin Sodium 135 L Potassium Chloride 92.2 L Carbon Dioxide BUN 65 H Creatinine 3.5 H Glucose 418 H POC Glucose 338 H Lactic Acid Calcium Phosphorus Ferritin Total Bilirubin Direct Bilirubin AST 553 H ALT 3453 H Lactate Dehydrogenase Total Creatine Kinase Troponin T Total Protein 5.9 L Albumin 3.0 L Triglycerides 220 H Arterial Blood Glucose Arterial Blood Ionized Calcium Urine pH Urine Creatinine Salicylates Acetaminophen Coronavirus (PCR) 09/13/20 09/13/20 09/13/20 04:47 05:24 10:50 WBC RBC Hgb Hct MCHC RDW Lymph % (Auto) Eddy % (Auto) Lymph # (Auto) Eddy # (Auto) Seg Neutrophils % Seg Neuts % (Manual) Lymphocytes % (Manual) Monocytes % (Manual) Nucleated RBC % Seg Neutrophils # Seg Neutrophils # Man Lymphocytes # (Manual) Monocytes # (Manual) PT INR D-Dimer ABG pH 7.571 H POC ABG pCO2 POC ABG pO2 69.0 L ABG pO2 ABG HCO3 ABG Base Excess ABG Hemoglobin 10.1 L ABG Oxyhemoglobin 93.2 L ABG Sodium 134.0 L ABG Potassium ABG Chloride ABG Glucose 365 H Carboxyhemoglobin 0.4 L Sodium Potassium Chloride 96.6 L Carbon Dioxide 32 H BUN 76 H Creatinine 3.1 H Glucose 395 H POC Glucose 329 H Lactic Acid Calcium Phosphorus Ferritin Total Bilirubin Direct Bilirubin AST ALT Lactate Dehydrogenase Total Creatine Kinase Troponin T Total Protein Albumin Triglycerides Arterial Blood Glucose 365 H Arterial Blood Ionized Calcium Urine pH Urine Creatinine Salicylates Acetaminophen Coronavirus (PCR) 09/13/20 09/13/20 09/13/20 11:39 17:48 23:35 WBC RBC Hgb Hct MCHC RDW Lymph % (Auto) Eddy % (Auto) Lymph # (Auto) Eddy # (Auto) Seg Neutrophils % Seg Neuts % (Manual) Lymphocytes % (Manual) Monocytes % (Manual) Nucleated RBC % Seg Neutrophils # Seg Neutrophils # Man Lymphocytes # (Manual) Monocytes # (Manual) PT INR D-Dimer ABG pH POC ABG pCO2 POC ABG pO2 ABG pO2 ABG HCO3 ABG Base Excess ABG Hemoglobin ABG Oxyhemoglobin ABG Sodium ABG Potassium ABG Chloride ABG Glucose Carboxyhemoglobin Sodium Potassium Chloride Carbon Dioxide BUN Creatinine Glucose POC Glucose 344 H 286 H 223 H Lactic Acid Calcium Phosphorus Ferritin Total Bilirubin Direct Bilirubin AST ALT Lactate Dehydrogenase Total Creatine Kinase Troponin T Total Protein Albumin Triglycerides Arterial Blood Glucose Arterial Blood Ionized Calcium Urine pH Urine Creatinine Salicylates Acetaminophen Coronavirus (PCR) 09/14/20 09/14/20 09/14/20 03:54 05:34 10:27 WBC RBC Hgb Hct MCHC RDW Lymph % (Auto) Eddy % (Auto) Lymph # (Auto) Eddy # (Auto) Seg Neutrophils % Seg Neuts % (Manual) Lymphocytes % (Manual) Monocytes % (Manual) Nucleated RBC % Seg Neutrophils # Seg Neutrophils # Man Lymphocytes # (Manual) Monocytes # (Manual) PT INR D-Dimer ABG pH POC ABG pCO2 POC ABG pO2 71.1 L ABG pO2 ABG HCO3 ABG Base Excess ABG Hemoglobin 10.3 L ABG Oxyhemoglobin ABG Sodium 135.2 L ABG Potassium ABG Chloride ABG Glucose 281 H Carboxyhemoglobin Sodium Potassium Chloride 96.6 L Carbon Dioxide BUN 100 H Creatinine 3.9 H Glucose 286 H POC Glucose 252 H Lactic Acid Calcium Phosphorus Ferritin Total Bilirubin Direct Bilirubin AST 145 H ALT 1400 H Lactate Dehydrogenase Total Creatine Kinase Troponin T Total Protein 5.6 L Albumin 2.9 L Triglycerides Arterial Blood Glucose 281 H Arterial Blood Ionized Calcium Urine pH Urine Creatinine Salicylates Acetaminophen Coronavirus (PCR) 09/14/20 09/14/20 09/14/20 11:38 17:52 23:07 WBC RBC Hgb Hct MCHC RDW Lymph % (Auto) Eddy % (Auto) Lymph # (Auto) Eddy # (Auto) Seg Neutrophils % Seg Neuts % (Manual) Lymphocytes % (Manual) Monocytes % (Manual) Nucleated RBC % Seg Neutrophils # Seg Neutrophils # Man Lymphocytes # (Manual) Monocytes # (Manual) PT INR D-Dimer ABG pH POC ABG pCO2 POC ABG pO2 ABG pO2 ABG HCO3 ABG Base Excess ABG Hemoglobin ABG Oxyhemoglobin ABG Sodium ABG Potassium ABG Chloride ABG Glucose Carboxyhemoglobin Sodium Potassium Chloride Carbon Dioxide BUN Creatinine Glucose POC Glucose 247 H 247 H 256 H Lactic Acid Calcium Phosphorus Ferritin Total Bilirubin Direct Bilirubin AST ALT Lactate Dehydrogenase Total Creatine Kinase Troponin T Total Protein Albumin Triglycerides Arterial Blood Glucose Arterial Blood Ionized Calcium Urine pH Urine Creatinine Salicylates Acetaminophen Coronavirus (PCR) 09/15/20 09/15/20 09/15/20 04:54 11:24 17:48 WBC RBC Hgb Hct MCHC RDW Lymph % (Auto) Eddy % (Auto) Lymph # (Auto) Eddy # (Auto) Seg Neutrophils % Seg Neuts % (Manual) Lymphocytes % (Manual) Monocytes % (Manual) Nucleated RBC % Seg Neutrophils # Seg Neutrophils # Man Lymphocytes # (Manual) Monocytes # (Manual) PT INR D-Dimer ABG pH POC ABG pCO2 POC ABG pO2 ABG pO2 ABG HCO3 ABG Base Excess ABG Hemoglobin ABG Oxyhemoglobin ABG Sodium ABG Potassium ABG Chloride ABG Glucose Carboxyhemoglobin Sodium Potassium Chloride Carbon Dioxide BUN Creatinine Glucose POC Glucose 271 H 228 H 254 H Lactic Acid Calcium Phosphorus Ferritin Total Bilirubin Direct Bilirubin AST ALT Lactate Dehydrogenase Total Creatine Kinase Troponin T Total Protein Albumin Triglycerides Arterial Blood Glucose Arterial Blood Ionized Calcium Urine pH Urine Creatinine Salicylates Acetaminophen Coronavirus (PCR) 09/15/20 09/15/20 09/15/20 19:20 19:20 23:13 WBC 27.3 H RBC 3.16 L Hgb 8.8 L Hct 27.0 L MCHC RDW 19.7 H Lymph % (Auto) Eddy % (Auto) Lymph # (Auto) Eddy # (Auto) Seg Neutrophils % Seg Neuts % (Manual) 81.0 H Lymphocytes % (Manual) 9.0 L Monocytes % (Manual) 10.0 H Nucleated RBC % Seg Neutrophils # Seg Neutrophils # Man 22.1 H Lymphocytes # (Manual) Monocytes # (Manual) 2.7 H PT INR D-Dimer ABG pH POC ABG pCO2 POC ABG pO2 ABG pO2 ABG HCO3 ABG Base Excess ABG Hemoglobin ABG Oxyhemoglobin ABG Sodium ABG Potassium ABG Chloride ABG Glucose Carboxyhemoglobin Sodium Potassium Chloride Carbon Dioxide BUN 68 H Creatinine 2.8 H Glucose 288 H POC Glucose 259 H Lactic Acid Calcium Phosphorus Ferritin Total Bilirubin Direct Bilirubin AST ALT Lactate Dehydrogenase Total Creatine Kinase Troponin T Total Protein Albumin Triglycerides Arterial Blood Glucose Arterial Blood Ionized Calcium Urine pH Urine Creatinine Salicylates Acetaminophen Coronavirus (PCR) 09/16/20 09/16/20 09/16/20 05:27 09:40 11:48 WBC RBC Hgb Hct MCHC RDW Lymph % (Auto) Eddy % (Auto) Lymph # (Auto) Eddy # (Auto) Seg Neutrophils % Seg Neuts % (Manual) Lymphocytes % (Manual) Monocytes % (Manual) Nucleated RBC % Seg Neutrophils # Seg Neutrophils # Man Lymphocytes # (Manual) Monocytes # (Manual) PT INR D-Dimer ABG pH POC ABG pCO2 POC ABG pO2 ABG pO2 ABG HCO3 ABG Base Excess ABG Hemoglobin ABG Oxyhemoglobin ABG Sodium ABG Potassium ABG Chloride ABG Glucose Carboxyhemoglobin Sodium Potassium Chloride Carbon Dioxide 31 H BUN 77 H Creatinine 2.9 H Glucose 250 H POC Glucose 275 H 234 H Lactic Acid Calcium Phosphorus Ferritin Total Bilirubin Direct Bilirubin AST ALT Lactate Dehydrogenase Total Creatine Kinase Troponin T Total Protein Albumin Triglycerides Arterial Blood Glucose Arterial Blood Ionized Calcium Urine pH Urine Creatinine Salicylates Acetaminophen Coronavirus (PCR) 09/16/20 09/16/20 09/17/20 17:40 23:23 00:01 WBC RBC Hgb Hct MCHC RDW Lymph % (Auto) Eddy % (Auto) Lymph # (Auto) Eddy # (Auto) Seg Neutrophils % Seg Neuts % (Manual) Lymphocytes % (Manual) Monocytes % (Manual) Nucleated RBC % Seg Neutrophils # Seg Neutrophils # Man Lymphocytes # (Manual) Monocytes # (Manual) PT INR D-Dimer ABG pH POC ABG pCO2 POC ABG pO2 ABG pO2 ABG HCO3 ABG Base Excess ABG Hemoglobin ABG Oxyhemoglobin ABG Sodium ABG Potassium ABG Chloride ABG Glucose Carboxyhemoglobin Sodium Potassium Chloride Carbon Dioxide BUN Creatinine Glucose POC Glucose 172 H 161 H Lactic Acid 2.10 H* Calcium Phosphorus Ferritin Total Bilirubin Direct Bilirubin AST ALT Lactate Dehydrogenase Total Creatine Kinase Troponin T Total Protein Albumin Triglycerides Arterial Blood Glucose Arterial Blood Ionized Calcium Urine pH Urine Creatinine Salicylates Acetaminophen Coronavirus (PCR) 09/17/20 09/17/20 09/17/20 04:00 04:00 05:09 WBC 19.5 H RBC 3.03 L Hgb 8.6 L Hct 26.3 L MCHC RDW 19.4 H Lymph % (Auto) 8.7 L Eddy % (Auto) 13.7 H Lymph # (Auto) Eddy # (Auto) 2.7 H Seg Neutrophils % 76.9 H Seg Neuts % (Manual) Lymphocytes % (Manual) Monocytes % (Manual) Nucleated RBC % Seg Neutrophils # 15.0 H Seg Neutrophils # Man Lymphocytes # (Manual) Monocytes # (Manual) PT INR D-Dimer ABG pH POC ABG pCO2 POC ABG pO2 ABG pO2 ABG HCO3 ABG Base Excess ABG Hemoglobin ABG Oxyhemoglobin ABG Sodium ABG Potassium ABG Chloride ABG Glucose Carboxyhemoglobin Sodium 146 H Potassium 3.1 L Chloride Carbon Dioxide BUN 79 H Creatinine 2.6 H Glucose 122 H POC Glucose 116 H Lactic Acid Calcium Phosphorus Ferritin Total Bilirubin Direct Bilirubin AST 64 H ALT 516 H Lactate Dehydrogenase Total Creatine Kinase Troponin T Total Protein 5.7 L Albumin 2.8 L Triglycerides Arterial Blood Glucose Arterial Blood Ionized Calcium Urine pH Urine Creatinine Salicylates Acetaminophen Coronavirus (PCR) 09/17/20 09/17/20 09/18/20 13:52 17:38 05:16 WBC RBC Hgb Hct MCHC RDW Lymph % (Auto) Eddy % (Auto) Lymph # (Auto) Eddy # (Auto) Seg Neutrophils % Seg Neuts % (Manual) Lymphocytes % (Manual) Monocytes % (Manual) Nucleated RBC % Seg Neutrophils # Seg Neutrophils # Man Lymphocytes # (Manual) Monocytes # (Manual) PT INR D-Dimer ABG pH POC ABG pCO2 POC ABG pO2 ABG pO2 ABG HCO3 ABG Base Excess ABG Hemoglobin ABG Oxyhemoglobin ABG Sodium ABG Potassium ABG Chloride ABG Glucose Carboxyhemoglobin Sodium Potassium Chloride Carbon Dioxide BUN Creatinine Glucose POC Glucose 68 L 126 H Lactic Acid 2.90 H* Calcium Phosphorus Ferritin Total Bilirubin Direct Bilirubin AST ALT Lactate Dehydrogenase Total Creatine Kinase Troponin T Total Protein Albumin Triglycerides Arterial Blood Glucose Arterial Blood Ionized Calcium Urine pH Urine Creatinine Salicylates Acetaminophen Coronavirus (PCR) 09/18/20 09/18/20 09/18/20 05:30 05:30 11:42 WBC 18.2 H RBC 3.18 L Hgb 9.0 L Hct 27.2 L MCHC RDW 18.8 H Lymph % (Auto) Eddy % (Auto) Lymph # (Auto) Eddy # (Auto) Seg Neutrophils % Seg Neuts % (Manual) Lymphocytes % (Manual) Monocytes % (Manual) Nucleated RBC % Seg Neutrophils # Seg Neutrophils # Man Lymphocytes # (Manual) Monocytes # (Manual) PT INR D-Dimer ABG pH POC ABG pCO2 POC ABG pO2 ABG pO2 ABG HCO3 ABG Base Excess ABG Hemoglobin ABG Oxyhemoglobin ABG Sodium ABG Potassium ABG Chloride ABG Glucose Carboxyhemoglobin Sodium Potassium 3.1 L Chloride Carbon Dioxide BUN 73 H Creatinine 2.6 H Glucose 154 H POC Glucose 140 H Lactic Acid Calcium Phosphorus Ferritin Total Bilirubin Direct Bilirubin AST ALT Lactate Dehydrogenase Total Creatine Kinase Troponin T Total Protein Albumin Triglycerides Arterial Blood Glucose Arterial Blood Ionized Calcium Urine pH Urine Creatinine Salicylates Acetaminophen Coronavirus (PCR) 09/18/20 09/18/20 09/19/20 18:15 23:37 05:13 WBC 22.8 H RBC 3.30 L Hgb 9.2 L Hct 28.1 L MCHC RDW 18.2 H Lymph % (Auto) Eddy % (Auto) Lymph # (Auto) Eddy # (Auto) Seg Neutrophils % Seg Neuts % (Manual) 87.0 H Lymphocytes % (Manual) 5.0 L Monocytes % (Manual) Nucleated RBC % Seg Neutrophils # Seg Neutrophils # Man 19.8 H Lymphocytes # (Manual) 1.1 L Monocytes # (Manual) 1.6 H PT INR D-Dimer ABG pH POC ABG pCO2 POC ABG pO2 ABG pO2 ABG HCO3 ABG Base Excess ABG Hemoglobin ABG Oxyhemoglobin ABG Sodium ABG Potassium ABG Chloride ABG Glucose Carboxyhemoglobin Sodium Potassium Chloride Carbon Dioxide BUN Creatinine Glucose POC Glucose 149 H 153 H Lactic Acid Calcium Phosphorus Ferritin Total Bilirubin Direct Bilirubin AST ALT Lactate Dehydrogenase Total Creatine Kinase Troponin T Total Protein Albumin Triglycerides Arterial Blood Glucose Arterial Blood Ionized Calcium Urine pH Urine Creatinine Salicylates Acetaminophen Coronavirus (PCR) 09/19/20 09/19/20 09/19/20 05:13 05:25 11:56 WBC RBC Hgb Hct MCHC RDW Lymph % (Auto) Eddy % (Auto) Lymph # (Auto) Eddy # (Auto) Seg Neutrophils % Seg Neuts % (Manual) Lymphocytes % (Manual) Monocytes % (Manual) Nucleated RBC % Seg Neutrophils # Seg Neutrophils # Man Lymphocytes # (Manual) Monocytes # (Manual) PT INR D-Dimer ABG pH POC ABG pCO2 POC ABG pO2 ABG pO2 ABG HCO3 ABG Base Excess ABG Hemoglobin ABG Oxyhemoglobin ABG Sodium ABG Potassium ABG Chloride ABG Glucose Carboxyhemoglobin Sodium Potassium Chloride Carbon Dioxide BUN 55 H Creatinine 2.3 H Glucose 196 H POC Glucose 168 H 137 H Lactic Acid Calcium Phosphorus Ferritin Total Bilirubin Direct Bilirubin AST ALT Lactate Dehydrogenase Total Creatine Kinase Troponin T Total Protein Albumin Triglycerides Arterial Blood Glucose Arterial Blood Ionized Calcium Urine pH Urine Creatinine Salicylates Acetaminophen Coronavirus (PCR) 09/19/20 09/19/20 09/20/20 17:43 23:43 05:36 WBC 20.1 H RBC 3.07 L Hgb 8.5 L Hct 26.4 L MCHC RDW 18.6 H Lymph % (Auto) 9.6 L Eddy % (Auto) 9.6 H Lymph # (Auto) Eddy # (Auto) 1.9 H Seg Neutrophils % 79.0 H Seg Neuts % (Manual) Lymphocytes % (Manual) Monocytes % (Manual) Nucleated RBC % Seg Neutrophils # 15.9 H Seg Neutrophils # Man Lymphocytes # (Manual) Monocytes # (Manual) PT INR D-Dimer ABG pH POC ABG pCO2 POC ABG pO2 ABG pO2 ABG HCO3 ABG Base Excess ABG Hemoglobin ABG Oxyhemoglobin ABG Sodium ABG Potassium ABG Chloride ABG Glucose Carboxyhemoglobin Sodium Potassium Chloride Carbon Dioxide BUN Creatinine Glucose POC Glucose 114 H 136 H Lactic Acid Calcium Phosphorus Ferritin Total Bilirubin Direct Bilirubin AST ALT Lactate Dehydrogenase Total Creatine Kinase Troponin T Total Protein Albumin Triglycerides Arterial Blood Glucose Arterial Blood Ionized Calcium Urine pH Urine Creatinine Salicylates Acetaminophen Coronavirus (PCR) 09/20/20 05:36 WBC RBC Hgb Hct MCHC RDW Lymph % (Auto) Eddy % (Auto) Lymph # (Auto) Eddy # (Auto) Seg Neutrophils % Seg Neuts % (Manual) Lymphocytes % (Manual) Monocytes % (Manual) Nucleated RBC % Seg Neutrophils # Seg Neutrophils # Man Lymphocytes # (Manual) Monocytes # (Manual) PT INR D-Dimer ABG pH POC ABG pCO2 POC ABG pO2 ABG pO2 ABG HCO3 ABG Base Excess ABG Hemoglobin ABG Oxyhemoglobin ABG Sodium ABG Potassium ABG Chloride ABG Glucose Carboxyhemoglobin Sodium Potassium 3.3 L Chloride Carbon Dioxide BUN 76 H Creatinine 3.6 H D Glucose 213 H POC Glucose Lactic Acid Calcium Phosphorus Ferritin Total Bilirubin Direct Bilirubin AST ALT Lactate Dehydrogenase Total Creatine Kinase Troponin T Total Protein Albumin Triglycerides Arterial Blood Glucose Arterial Blood Ionized Calcium Urine pH Urine Creatinine Salicylates Acetaminophen Coronavirus (PCR)
--- NOTE | 2020-09-20 09:07 | Progress Note ---
Assessment and Plan Impression: * Nonoliguric RYAN secondary to ATN * Severe hyperkalemia - resolved * COVID 19 PNA * s/p OOH cardiac arrest * Acute hypoxic respiratory failure * Seizure activity * Anemia Plan: * Patient is s/p emergent HD - 09/08 * Continue MWF * Check labs daily * Strict I/O * Monitor for renal recovery * Keep MAP > 65 * Vent management per CCM * Steroids per primary team/ID * Dose medications for renal function * Avoid potential nephrotoxins * Prognosis is guarded Subjective Date of service: 09/20/20 Principal diagnosis: Abnormal LFTs, s/p cardiac arrest, acute kidney injury with ATN Interval history: resting in bed today Objective - Exam Narrative Exam: Deferred for PPE conservation and to prevent spread of infection - Vital Signs Vital signs: Vital Signs - 12hr 09/19/20 09/19/20 09/19/20 22:00 23:00 23:41 Temperature Pulse Rate 58 L 59 L 61 Pulse Rate [ From Monitor] Respiratory 15 12 Rate Blood Pressure 137/74 146/77 154/76 O2 Sat by Pulse 100 100 100 Oximetry 09/20/20 09/20/20 09/20/20 00:00 01:00 02:00 Temperature 98.7 F Pulse Rate 59 L 61 60 Pulse Rate [ 64 From Monitor] Respiratory 12 6 L 30 H Rate Blood Pressure 162/74 145/69 151/76 O2 Sat by Pulse 100 100 100 Oximetry 09/20/20 09/20/20 09/20/20 03:00 04:00 04:20 Temperature 98.8 F Pulse Rate 65 65 63 Pulse Rate [ 64 From Monitor] Respiratory 21 30 H Rate Blood Pressure 160/79 144/73 144/73 O2 Sat by Pulse 100 100 100 Oximetry 09/20/20 09/20/20 09/20/20 05:00 06:00 07:00 Temperature Pulse Rate 61 64 64 Pulse Rate [ From Monitor] Respiratory 30 H 30 H 30 H Rate Blood Pressure 140/71 152/68 148/77 O2 Sat by Pulse 100 100 100 Oximetry 09/20/20 08:00 Temperature 98.6 F Pulse Rate Pulse Rate [ From Monitor] Respiratory Rate Blood Pressure O2 Sat by Pulse Oximetry - Lab 09/20/20 05:36 09/20/20 05:36 Most recent lab results ABG pH 7.442 (7.320-7.450) 09/14/20 03:54 ABG pCO2 33.4 mm Hg 09/11/20 05:40 ABG pO2 112.1 mm Hg (80.0-90.0) H 09/11/20 05:40 ABG HCO3 28.1 mmol/L (20.0-26.0) H 09/11/20 05:40 ABG O2 Saturation 98.4 % (95.0-99.0) 09/11/20 05:40 Calcium 8.8 mg/dL (8.4-10.2) 09/20/20 05:36 Phosphorus 8.00 mg/dL (2.5-4.5) H 09/08/20 12:02 Magnesium 1.80 mg/dL (1.7-2.3) 09/08/20 12:02 Urine Creatinine 182.4 mg/dL (0.1-20.0) H 09/08/20 Unknown Urine Sodium 40 mmol/L 09/08/20 Unknown Medications & Allergies - Medications Allergies/Adverse Reactions: Allergies Unable to Assess Allergy (Verified 09/07/20 13:43) intubated Home Medications: Home Medications Medication Instructions Recorded Confirmed Last Taken Type Albuterol Sulfate 60 mcg IH PRN 09/11/20 09/11/20 Unknown History Cholecalciferol (Vitamin D3) 25 tab PO DAILY 09/11/20 09/11/20 Unknown History Cozaar 25 tab PO DAILY 09/11/20 09/11/20 Unknown History HumaLOG 14 unit SQ AC 09/11/20 09/11/20 Unknown History Hydralazine HCl 50 tab PO TID 09/11/20 09/11/20 Unknown History Isosorbide Dinitrate 30 mg PO DAILY 09/11/20 09/11/20 Unknown History Lantus VIAL 54 units SQ HS 09/11/20 09/11/20 Unknown History Lasix 20 tab PO DAILY 09/11/20 09/11/20 Unknown History Nifedipine 30 tab PO DAILY 09/11/20 09/11/20 Unknown History Active Medications: Generic Name Dose Route Start Last Admin Trade Name Freq PRN Reason Stop Dose Admin Acetaminophen 400 mg 09/10/20 20:50 09/14/20 23:38 Acetaminophen 325 Mg/10.15 Ml Oral Liqd Unit Dose PO 400 mg Q4HR PRN Administration Non Cardiac Pain or Temp>100.5 Lipase/Protease/Amylase 1 each 09/09/20 09:40 Lipase 10,500/Protease 25,000/Amylase 43,750 (Units) Dr Armenta FEEDTUBE PRN PRN For Clogged Feeding Tube Hydrophilic Ointment 1 applic 09/07/20 13:08 Lip Therapy Vaseline TP Q2HR PRN Dry Lips Propofol 1,000 mg in 100 mls @ 4.995 mls/hr 09/08/20 20:00 09/15/20 07:00 Diprivan 10 Mg/Ml IV 0 mcg/kg/min TITR TAYLOR 0 mls/hr Titration Protocol 5 MCG/KG/MIN Sodium Chloride 100 mls @ 999 mls/hr 09/09/20 13:36 Nacl 0.9% IV JAYJAY PRN Hypotension Levetiracetam 1,500 mg/ 115 mls @ 400 mls/hr 09/11/20 10:00 09/19/20 22:04 Dextrose IV 400 mls/hr BID TAYLOR Administration Valproate Sodium 1,000 mg/ 110 mls @ 100 mls/hr 09/14/20 22:00 09/19/20 22:03 Sodium Chloride IV 100 mls/hr Q12HR TAYLOR Administration Insulin Human Lispro 0 unit 09/12/20 12:00 09/20/20 05:23 Insulin Lispro 100 Unit/Ml SUB-Q 3 unit Q6HR TAYLOR Administration Protocol Lansoprazole 30 mg 09/11/20 11:00 09/19/20 22:04 Lansoprazole 30 Mg Solutab FEEDTUBE 30 mg BID TAYLOR Administration Lorazepam 2 mg 09/08/20 00:14 09/14/20 13:36 Lorazepam 2 Mg/Ml Vial IV 2 mg Q4H PRN Administration Seizures Multi-Ingred Cream/Lotion/Oil/Oint 1 applic 09/07/20 13:08 Mineral Oil/Petrolatum, White Ophth Oint 3.5 Gm OU Q4HR PRN Dry Eye(s) Multivitamins 5 ml 09/09/20 12:00 09/19/20 11:03 Multivitamins 5 Ml Oral Liquid PO 5 ml QDAY TAYLOR Administration Ondansetron HCl 4 mg 09/07/20 17:55 09/19/20 04:00 Ondansetron 4 Mg/2 Ml Inj IV 4 mg Q8H PRN Administration Nausea And Vomiting Senna/Docusate Sodium 2 tab 09/13/20 11:00 09/19/20 22:04 Sennosides/Docusate Sodium 8.6/50 Mg Tab PO 2 tab BID TAYLOR Administration Simple Syrup 15 ml 09/09/20 09:40 09/17/20 17:43 Simple Syrup 15 Ml FEEDTUBE 15 ml PRN PRN Administration Hypoglycemia Simple Syrup 30 ml 09/09/20 09:40 Simple Syrup 15 Ml FEEDTUBE PRN PRN Hypoglycemia Sodium Bicarbonate 325 mg 09/09/20 09:40 Sodium Bicarbonate 325 Mg Tab FEEDTUBE PRN PRN For Clogged Feeding Tube Sodium Chloride 10 ml 09/07/20 22:00 09/19/20 22:06 Sodium Chloride 0.9% 10 Ml Flush Syringe IV 10 ml BID TAYLOR Administration Sodium Chloride 10 ml 09/07/20 17:55 Sodium Chloride 0.9% 10 Ml Flush Syringe IV PRN PRN LINE FLUSH
--- NOTE | 2020-09-20 09:08 | Progress Note ---
Assessment and Plan Assessment and plan: S/p cardiopulmonary arrest Toxic metabolic encephalopathy +/-anoxic injury Acute hypoxic respiratory failure Acute kidney injury Seizure disorder Hyperkalemia COVID-19 pneumonia Sepsis Transaminitis Morbid obesity. 09/15/2020. MRI brain for further evaluation. Continue AEDs of valproic acid and Keppra. Continue hemodialysis per nephrology recommendations. Overall prognosis remains guarded and poor. 09/16/2020. ID recommends continue to monitor patient off of antibiotics. Fever most likely of central etiology. Patient with questionable seizures versus myoclonus from anoxic brain injury. Patient unable to undergo MRI due to body habitus. Continue AEDs per neurology recommendations. Inflammatory markers elevated. Patient was recently hospitalized for COVID-19 pneumonia [place] the [facility] to being [facility] [place]. Patient not a candidate for remdesivir due to hepatic and renal failure. Viral hepatitis panel negative. Overall prognosis extremely poor. 09/17/2020. Fevers have resolved over the past 48 hours. Continue to monitor off antibiotics per ID recommendations. Patient with questionable seizures versus myoclonus from anoxic brain injury. Patient unable to undergo MRI due to body habitus. EEG is nonspecific but given CT of head findings consistent with anoxic encephalopathy, brain injury. Continue AEDs per neurology recommendations. Inflammatory markers elevated. Patient was recently hospitalized for COVID-19 pneumonia at the [facility] to being hospitalized [place]. Patient not a candidate for remdesivir due to hepatic and renal failure. Viral hepatitis panel negative. Patient is s/p emergent HD on Friday (hyperK) and Friday - 09/08. Patient also S/p HD 09/15. Continue hemodialysis per nephrology recommendations. Patient currently on AC/PRVC mode ventilation with rate of 30, tidal volume 475, FiO2 30% and PEEP of 6. As stated in neuro note, overall prognosis is very poor. 09/18/2020. Fevers have resolved over the past 72 hours. Continue to monitor off antibiotics per ID recommendations. Leukocytosis persistent for the past 4 days. Patient with questionable seizures/myoclonus from anoxic brain injury. Patient unable to undergo MRI due to body habitus. EEG is nonspecific but given CT of head findings consistent with anoxic encephalopathy, brain injury. Continue AEDs per neurology recommendations. Inflammatory markers elevated. Patient was recently hospitalized for COVID-19 pneumonia at the [facility] [place]. Patient not a candidate for remdesivir due to hepatic and renal failure. Viral hepatitis panel negative. Patient currently on AC/PRVC mode ventilation with rate of 30, tidal volume 475, FiO2 30% and PEEP of 6. Overall prognosis remains guarded/poor. 07/19/2021 Fevers have resolved over the past 4 days. Continue to monitor off antibiotics per ID recommendations. Leukocytosis persistent for the past 4 days. Patient with questionable seizures/myoclonus from anoxic brain injury. Patient unable to undergo MRI due to body habitus. EEG is nonspecific but given CT of head findings consistent with anoxic encephalopathy, brain injury. Continue AEDs per neurology recommendations. Inflammatory markers elevated. Patient was recently hospitalized for COVID-19 pneumonia at the [facility] [place]. Patient not a candidate for remdesivir due to hepatic and renal failure. Viral hepatitis panel negative. Patient currently on AC/PRVC mode ventilation with rate of 30, tidal volume 475, FiO2 30% and PEEP of 6. Overall prognosis remains guarded/poor. 09/20/2020 -Surgery consulted for PEG and trach, will continue to follow. The high probability of a clinically significant, sudden or life threatening deterioration of the [cardiac, respiratory and neurological] system(s) required my full and direct attention, intervention and personal management. The aggregate critical care time was [32] minutes. This time is in addition to time spent performing reported procedures but includes the following: [x] Data Review and interpretation [x] Patient assessment and monitoring of vital signs [x] Documentation [x] Medication orders and management History Interval history: Patient was intubated and sedated Patient is on mechanical ventilator Hospitalist Physical - Physical exam Narrative exam: On mechanical ventilation. The patient appeared well nourished and normally developed. Vital signs as documented. Head exam is unremarkable. No scleral icterus . Neck is without jugular venous distension, thyromegaly, or carotid bruits. Lungs are clear to auscultation. Cardiac exam reveals regular rate and Rhythm. Abdominal exam reveals normal bowel sounds, nontender, no organomegaly. Extremities are nonedematous and both femoral and pedal pulses are normal. LEASE ANALYST: Patient is intubated. - Constitutional Vitals: Temp Pulse Resp BP Pulse Ox 98.6 F 64 30 H 148/77 100 09/20/20 08:00 09/20/20 07:00 09/20/20 07:00 09/20/20 07:00 09/20/20 07:00 General appearance: Present: other (Intubated sedated) HEART Score - HEART Score Troponin: Troponin T 0.076 ng/mL (0.00-0.029) H 09/07/20 14:00 Results - Labs CBC & Chem 7: 09/20/20 05:36 09/20/20 05:36 Labs: Laboratory Last Values WBC 20.1 K/mm3 (4.5-11.0) H 09/20/20 05:36 RBC 3.07 M/mm3 (3.65-5.03) L 09/20/20 05:36 Hgb 8.5 gm/dl (11.8-15.2) L 09/20/20 05:36 Hct 26.4 % (35.5-45.6) L 09/20/20 05:36 MCV 86 fl (84-94) 09/20/20 05:36 MCH 28 pg (28-32) 09/20/20 05:36 MCHC 32 % (32-34) 09/20/20 05:36 RDW 18.6 % (13.2-15.2) H 09/20/20 05:36 Plt Count 204 K/mm3 (140-440) 09/20/20 05:36 Lymph % (Auto) 9.6 % (13.4-35.0) L 09/20/20 05:36 O'Brien % (Auto) 9.6 % (0.0-7.3) H 09/20/20 05:36 Eos % (Auto) 1.4 % (0.0-4.3) 09/20/20 05:36 Baso % (Auto) 0.4 % (0.0-1.8) 09/20/20 05:36 Lymph # (Auto) 1.9 K/mm3 (1.2-5.4) 09/20/20 05:36 O'Brien # (Auto) 1.9 K/mm3 (0.0-0.8) H 09/20/20 05:36 Eos # (Auto) 0.3 K/mm3 (0.0-0.4) 09/20/20 05:36 Baso # (Auto) 0.1 K/mm3 (0.0-0.1) 09/20/20 05:36 Add Manual Diff Complete 09/19/20 05:13 Total Counted 100 09/19/20 05:13 Seg Neutrophils % 79.0 % (40.0-70.0) H 09/20/20 05:36 Seg Neuts % (Manual) 87.0 % (40.0-70.0) H 09/19/20 05:13 Band Neutrophils % 1.0 % 09/19/20 05:13 Lymphocytes % (Manual) 5.0 % (13.4-35.0) L 09/19/20 05:13 Monocytes % (Manual) 7.0 % (0.0-7.3) 09/19/20 05:13 Eosinophils % (Manual) 2.0 % (0.0-4.3) 09/07/20 14:00 Metamyelocytes % 2.0 % 09/08/20 Unknown Nucleated RBC % Not Reportable 09/19/20 05:13 Seg Neutrophils # 15.9 K/mm3 (1.8-7.7) H 09/20/20 05:36 Seg Neutrophils # Man 19.8 K/mm3 (1.8-7.7) H 09/19/20 05:13 Band Neutrophils # 0.2 K/mm3 09/19/20 05:13 Lymphocytes # (Manual) 1.1 K/mm3 (1.2-5.4) L 09/19/20 05:13 Abs React Lymphs (Man) 0.0 K/mm3 09/19/20 05:13 Monocytes # (Manual) 1.6 K/mm3 (0.0-0.8) H 09/19/20 05:13 Eosinophils # (Manual) 0.0 K/mm3 (0.0-0.4) 09/19/20 05:13 Basophils # (Manual) 0.0 K/mm3 (0.0-0.1) 09/19/20 05:13 Metamyelocytes # 0.0 K/mm3 09/19/20 05:13 Myelocytes # 0.0 K/mm3 09/19/20 05:13 Promyelocytes # 0.0 K/mm3 09/19/20 05:13 Blast Cells # 0.0 K/mm3 09/19/20 05:13 WBC Morphology Not Reportable 09/19/20 05:13 Hypersegmented Neuts Not Reportable 09/19/20 05:13 Hyposegmented Neuts Not Reportable 09/19/20 05:13 Hypogranular Neuts Not Reportable 09/19/20 05:13 Smudge Cells Not Reportable 09/19/20 05:13 Toxic Granulation Not Reportable 09/19/20 05:13 Toxic Vacuolation Not Reportable 09/19/20 05:13 Dohle Bodies Not Reportable 09/19/20 05:13 Pelger-Huet Anomaly Not Reportable 09/19/20 05:13 Justus Rods Not Reportable 09/19/20 05:13 Platelet Estimate Consistent w auto 09/19/20 05:13 Clumped Platelets Not Reportable 09/19/20 05:13 Plt Clumps, EDTA Not Reportable 09/19/20 05:13 Large Platelets Not Reportable 09/19/20 05:13 Giant Platelets Not Reportable 09/19/20 05:13 Platelet Satelliting Not Reportable 09/19/20 05:13 Plt Morphology Comment Not Reportable 09/19/20 05:13 RBC Morphology Not Reportable 09/19/20 05:13 Dimorphic RBCs Not Reportable 09/19/20 05:13 Polychromasia Not Reportable 09/19/20 05:13 Hypochromasia Not Reportable 09/19/20 05:13 Poikilocytosis Not Reportable 09/19/20 05:13 Anisocytosis 1+ 09/19/20 05:13 Microcytosis Not Reportable 09/19/20 05:13 Macrocytosis Not Reportable 09/19/20 05:13 Spherocytes Not Reportable 09/19/20 05:13 Pappenheimer Bodies Not Reportable 09/19/20 05:13 Sickle Cells Not Reportable 09/19/20 05:13 Target Cells Not Reportable 09/19/20 05:13 Tear Drop Cells Not Reportable 09/19/20 05:13 Ovalocytes Not Reportable 09/19/20 05:13 Helmet Cells Not Reportable 09/19/20 05:13 [place] Bodies Not Reportable 09/19/20 05:13 [place] Rings Not Reportable 09/19/20 05:13 Manjit Cells Not Reportable 09/19/20 05:13 Bite Cells Not Reportable 09/19/20 05:13 Crenated Cell Not Reportable 09/19/20 05:13 Elliptocytes Not Reportable 09/19/20 05:13 Acanthocytes (Spur) Not Reportable 09/19/20 05:13 Rouleaux Not Reportable 09/19/20 05:13 Hemoglobin C Crystals Not Reportable 09/19/20 05:13 Schistocytes Not Reportable 09/19/20 05:13 Malaria parasites Not Reportable 09/19/20 05:13 [place] Bodies Not Reportable 09/19/20 05:13 Hem Pathologist Commnt No 09/19/20 05:13 PT 16.1 Sec. (12.2-14.9) H 09/12/20 04:00 INR 1.31 (0.87-1.13) H 09/12/20 04:00 APTT 32.4 Sec. (24.2-36.6) 09/09/20 10:00 D-Dimer 8315.85 ng/mlDDU (0-234) H 09/07/20 14:00 ABG pH 7.442 (7.320-7.450) 09/14/20 03:54 POC ABG pCO2 42.3 mmHg (32.0-48.0) 09/14/20 03:54 ABG pCO2 33.4 mm Hg 09/11/20 05:40 POC ABG pO2 71.1 mmHg (83-108) L 09/14/20 03:54 ABG pO2 112.1 mm Hg (80.0-90.0) H 09/11/20 05:40 POC ABG HCO3 28.2 09/14/20 03:54 ABG HCO3 28.1 mmol/L (20.0-26.0) H 09/11/20 05:40 ABG O2 Saturation 98.4 % (95.0-99.0) 09/11/20 05:40 ABG O2 Content 11.6 (0.0-44) 09/11/20 05:40 POC ABG Base Excess 3.7 09/14/20 03:54 ABG Base Excess 5.4 mmol/L (-2.0-3.0) H 09/11/20 05:40 ABG Hemoglobin 10.3 (12.0-17.5) L 09/14/20 03:54 ABG Oxyhemoglobin 93.2 (94-98) L 09/13/20 04:47 ABG Carboxyhemoglobin 1.2 % (0.0-5.0) 09/11/20 05:40 ABG Methemoglobin 0.3 (0.0-1.5) 09/13/20 04:47 ABG Sodium 135.2 mmol/L (136.0-145.0) L 09/14/20 03:54 ABG Potassium 3.8 mmol/L (3.40-4.50) 09/14/20 03:54 ABG Chloride 98.0 mmol/L (98-107) 09/14/20 03:54 ABG Glucose 281 mg/dL (65-95) H 09/14/20 03:54 Oxyhemoglobin 96.8 % (95.0-99.0) 09/11/20 05:40 Carboxyhemoglobin 0.4 (0.5-1.5) L 09/13/20 04:47 FiO2 30 09/14/20 03:54 Sodium 145 mmol/L (137-145) 09/20/20 05:36 Potassium 3.3 mmol/L (3.6-5.0) L 09/20/20 05:36 Chloride 106.1 mmol/L (98-107) 09/20/20 05:36 Carbon Dioxide 27 mmol/L (22-30) 09/20/20 05:36 Anion Gap 15 mmol/L 09/20/20 05:36 BUN 76 mg/dL (9-20) H 09/20/20 05:36 Creatinine 3.6 mg/dL (0.8-1.3) H D 09/20/20 05:36 Estimated GFR 21 ml/min 09/20/20 05:36 BUN/Creatinine Ratio 21 % 09/20/20 05:36 Glucose 213 mg/dL (75-100) H 09/20/20 05:36 POC Glucose 136 mg/dL (70-105) H 09/19/20 23:43 Lactic Acid 2.90 mmol/L (0.7-2.0) H* 09/17/20 13:52 Calcium 8.8 mg/dL (8.4-10.2) 09/20/20 05:36 Phosphorus 8.00 mg/dL (2.5-4.5) H 09/08/20 12:02 Magnesium 1.80 mg/dL (1.7-2.3) 09/08/20 12:02 Ferritin > 2000.0 ng/mL (30.0-300.0) H 09/07/20 14:00 Total Bilirubin 0.90 mg/dL (0.1-1.2) 09/17/20 04:00 Direct Bilirubin 0.5 mg/dL (0-0.2) H 09/08/20 05:00 Indirect Bilirubin 0.5 mg/dL 09/08/20 05:00 AST 64 units/L (5-40) H 09/17/20 04:00 ALT 516 units/L (7-56) H 09/17/20 04:00 Alkaline Phosphatase 87 units/L (35-129) 09/17/20 04:00 Ammonia 50.0 umol/L (25-60) 09/07/20 14:00 Lactate Dehydrogenase 882 units/L (91-180) H 09/07/20 14:00 Total Creatine Kinase 477 units/L (55-170) H 09/07/20 14:00 Troponin T 0.076 ng/mL (0.00-0.029) H 09/07/20 14:00 C-Reactive Protein 1.10 mg/dL (0.00-1.30) 09/07/20 14:00 Total Protein 5.7 g/dL (6.3-8.2) L 09/17/20 04:00 Albumin 2.8 g/dL (3.9-5) L 09/17/20 04:00 Albumin/Globulin Ratio 1.0 % 09/17/20 04:00 Triglycerides 220 mg/dL (2-149) H 09/12/20 Unknown Procalcitonin 1.52 ng/mL (<0.15) 09/17/20 13:02 TSH 2.290 mlU/mL (0.270-4.200) 09/07/20 14:00 Arterial Blood Glucose 281 mg/dL (65-95) H 09/14/20 03:54 Arterial Blood Ionized Calcium 4.6 mg/dL (4.6-5.3) 09/14/20 03:54 Urine Color Straw (Yellow) 09/07/20 13:08 Urine Turbidity Slightly-cloudy (Clear) 09/07/20 13:08 Urine pH 8.0 (5.0-7.0) H 09/07/20 13:08 Ur Specific [place] 1.006 (1.003-1.030) 09/07/20 13:08 Urine Protein 100 mg/dl mg/dL (Negative) 09/07/20 13:08 Urine Glucose (UA) Neg mg/dL (Negative) 09/07/20 13:08 Urine Ketones Neg mg/dL (Negative) 09/07/20 13:08 Urine Blood Neg (Negative) 09/07/20 13:08 Urine Nitrite Neg (Negative) 09/07/20 13:08 Urine Bilirubin Neg (Negative) 09/07/20 13:08 Urine Urobilinogen < 2.0 mg/dL (<2.0) 09/07/20 13:08 Ur Leukocyte Esterase Neg (Negative) 09/07/20 13:08 Urine WBC (Auto) 4.0 /HPF (0.0-6.0) 09/07/20 13:08 Urine RBC (Auto) 18.0 /HPF (0.0-6.0) 09/07/20 13:08 U Epithel Cells (Auto) 1.0 /HPF (0-13.0) 09/07/20 13:08 Urine Mucus Few /HPF 09/07/20 13:08 Urine Sperm 3+ /HPF (MILL CRANE OPERATOR) 09/07/20 13:08 Urine Creatinine 182.4 mg/dL (0.1-20.0) H 09/08/20 Unknown Urine Sodium 40 mmol/L 09/08/20 Unknown Salicylates < 0.3 mg/dL (2.8-20.0) L 09/07/20 14:00 Acetaminophen 5.0 ug/mL (10.0-30.0) L 09/07/20 14:00 Plasma/Serum Alcohol < 0.01 % (0-0.07) 09/07/20 14:00 Coronavirus (PCR) Negative (Negative) 09/19/20 Unknown Hepatitis A IgM Ab Non-reactive (NonReactive) 09/07/20 14:00 Hep Bs Antigen Non-reactive (Negative) 09/07/20 14:00 Hep B Core IgM Ab Non-reactive (NonReactive) 09/07/20 14:00 Hepatitis C Antibody Non-reactive (NonReactive) 09/07/20 14:00 HIV 1&2 Antibody Rapid Non react (Non React) 09/07/20 14:34 HIV P24 Antigen Non react (Non React) 09/07/20 14:34 Blood Type O POSITIVE 09/09/20 10:00 Antibody Screen Negative 09/07/20 14:00 Mae/IV: Voiding Method Indwelling Catheter IV Catheter Type [Right Triple Lumen Cath Femoral] IV Catheter Type [Left Peripheral IV Antecubital] IV Catheter Type [Left Hand] Peripheral IV IV Catheter Type [Right Peripheral IV Antecubital] Active Medications - Current Medications Current Medications: Generic Name Dose Route Start Last Admin Trade Name Freq PRN Reason Stop Dose Admin Acetaminophen 400 mg 09/10/20 20:50 09/14/20 23:38 Acetaminophen 325 Mg/10.15 Ml Oral Liqd Unit Dose PO 400 mg Q4HR PRN Administration Non Cardiac Pain or Temp>100.5 Lipase/Protease/Amylase 1 each 09/09/20 09:40 Lipase 10,500/Protease 25,000/Amylase 43,750 (Units) Dr Armenta FEEDTUBE PRN PRN For Clogged Feeding Tube Hydrophilic Ointment 1 applic 09/07/20 13:08 Lip Therapy Vaseline TP Q2HR PRN Dry Lips Propofol 1,000 mg in 100 mls @ 4.995 mls/hr 09/08/20 20:00 09/15/20 07:00 Diprivan 10 Mg/Ml IV 0 mcg/kg/min TITR TAYLOR 0 mls/hr Titration Protocol 5 MCG/KG/MIN Sodium Chloride 100 mls @ 999 mls/hr 09/09/20 13:36 Nacl 0.9% IV JAYJAY PRN Hypotension Levetiracetam 1,500 mg/ 115 mls @ 400 mls/hr 09/11/20 10:00 09/19/20 22:04 Dextrose IV 400 mls/hr BID TAYLOR Administration Valproate Sodium 1,000 mg/ 110 mls @ 100 mls/hr 09/14/20 22:00 09/19/20 22:03 Sodium Chloride IV 100 mls/hr Q12HR TAYLOR Administration Insulin Human Lispro 0 unit 09/12/20 12:00 09/20/20 05:23 Insulin Lispro 100 Unit/Ml SUB-Q 3 unit Q6HR TAYLOR Administration Protocol Lansoprazole 30 mg 09/11/20 11:00 09/19/20 22:04 Lansoprazole 30 Mg Solutab FEEDTUBE 30 mg BID TAYLOR Administration Lorazepam 2 mg 09/08/20 00:14 09/14/20 13:36 Lorazepam 2 Mg/Ml Vial IV 2 mg Q4H PRN Administration Seizures Multi-Ingred Cream/Lotion/Oil/Oint 1 applic 09/07/20 13:08 Mineral Oil/Petrolatum, White Ophth Oint 3.5 Gm OU Q4HR PRN Dry Eye(s) Multivitamins 5 ml 09/09/20 12:00 09/19/20 11:03 Multivitamins 5 Ml Oral Liquid PO 5 ml QDAY TAYLOR Administration Ondansetron HCl 4 mg 09/07/20 17:55 09/19/20 04:00 Ondansetron 4 Mg/2 Ml Inj IV 4 mg Q8H PRN Administration Nausea And Vomiting Senna/Docusate Sodium 2 tab 09/13/20 11:00 09/19/20 22:04 Sennosides/Docusate Sodium 8.6/50 Mg Tab PO 2 tab BID TAYLOR Administration Simple Syrup 15 ml 09/09/20 09:40 09/17/20 17:43 Simple Syrup 15 Ml FEEDTUBE 15 ml PRN PRN Administration Hypoglycemia Simple Syrup 30 ml 09/09/20 09:40 Simple Syrup 15 Ml FEEDTUBE PRN PRN Hypoglycemia Sodium Bicarbonate 325 mg 09/09/20 09:40 Sodium Bicarbonate 325 Mg Tab FEEDTUBE PRN PRN For Clogged Feeding Tube Sodium Chloride 10 ml 09/07/20 22:00 09/19/20 22:06 Sodium Chloride 0.9% 10 Ml Flush Syringe IV 10 ml BID TAYLOR Administration Sodium Chloride 10 ml 09/07/20 17:55 Sodium Chloride 0.9% 10 Ml Flush Syringe IV PRN PRN LINE FLUSH Nutrition/Malnutrition Assess - Dietary Evaluation Nutrition/Malnutrition Findings: Nutrition Notes Start: 09/08/20 12:01 Freq: Status: Active Protocol: Document 09/19/20 11:05 MAYURI (Rec: 09/19/20 11:16 MAYURI [id number]) Co-Sign 09/19/20 11:05 CRISTIANA Nutrition Notes Initial or Follow up Reassessment Current Diagnosis Acute Kidney Injury Other Pertinent Diagnosis acute renal failure on HD, cardiac arrest, possible seizures, COVID(+), AMS Current Diet Nepro 1.8 at 45 ml/hr Labs/Tests BUN 55 Cr 2.3 BG 196 Pertinent Medications Humalog 3 units MVI Height 6 ft Weight 166.5 kg [place] Body Weight (kg) 80.90 BMI 49.8 Weight Status Morbidly Obese Subjective/Other Information F/u TF tolerance and BM. Per chart, pt has had 1 BM last 3 days. Pt had vomitting episode of 400 ml yesterday. Today, observed TF hanging. Burn Absent Trauma Absent GI Symptoms Vomiting Current % PO Negligible Minimum of two criteria No physical signs of malnutrition #1 Nutrition Diagnosis Inadequate oral intake Diagnosis Progress(for reassessment Continues documentation) Is patient on ventilator? Yes Is Patient Ambulatory and/or Out of Bed No REE-([facility]-confined to bed) 2995.752 Kcal/Kg value to use for calculation 12 Approximate Energy Requirements Using 1998 kcal/Kg Calculation Used for Recommendations Kcal/kg Additional Notes PRO needs: >202g (> 2.5g/kg IBW 80.9kg) Fluid needs: 1 mL/kcal or per MD Nutrition Intervention Change Diet Order: Continue TF Nutrition Support: Nepro 1.8 at 45 mL/hr Flush 200 mL q4h Kcal 1,944 Protein (gm) 87 Fluid (mL) 785 % RDI: 100% Goal #1 Meet at least 65% energy and protein needs (due to morbid obesity guidelines) Anticipated Discharge Needs: Unable to determine Follow-Up By: 09/21/20 Additional Comments F/u for TF tolerance
[2020-09-20] MEDS: FAMOTIDINE 20 MG/2 ML INJ IV SCH (10:50)
[2020-09-20] MEDS: VALPROATE SODIUM 1,000 MG in SODIUM CHLORIDE 0.9% 100 ML IV SCH ×2 (10:50→21:13)
[2020-09-20] MEDS: levETIRAcetam 1,500 MG in DEXTROSE 5% IN WATER 100 ML IV SCH ×2 (10:50→21:10)
[2020-09-20] MEDS: MULTIVITAMINS 5 ML ORAL LIQUID PO SCH (10:51)
[2020-09-20] MEDS ORDERED: SENNOSIDES/DOCUSATE SODIUM 8.6/50 MG TAB PO PRN (11:00)
--- NOTE | 2020-09-20 13:12 | Consultation ---
History of Present Illness Consult date: 09/20/20 Chief complaint: vent - History of present illness History of present illness: 65-year-old male who was brought to the emergency room on 09/07/2020 for cardiopulmonary arrest. Patient is currently intubated and unresponsive and all history is obtained from chart. Patient passed out and CPR was started in the field. Patient was defibrillated once. Patient did have return of spontaneous circulation. Patient was intubated in the emergency room. Patient was found to be Covid positive and treated appropriately for Covid pneumonia. He has been seen by neurology and neurosurgery and prognosis deemed very poor. Patient unab le to be safely extubated. Surgery is consulted for tracheostomy and PEG tube. Past History Past Medical History: other (Unobtainable) Past Surgical History: Other (Unobtainable) Social history: other (Unobtainable) Family history: other (Unobtainable) Medications and Allergies Allergies Allergy/AdvReac Type Severity Reaction Status Date / Time Unable to Assess Allergy Verified 09/07/20 13:43 Home Medications Medication Instructions Recorded Confirmed Last Taken Type Albuterol Sulfate 60 mcg IH PRN 09/11/20 09/11/20 Unknown History Cholecalciferol (Vitamin D3) 25 tab PO DAILY 09/11/20 09/11/20 Unknown History Cozaar 25 tab PO DAILY 09/11/20 09/11/20 Unknown History HumaLOG 14 unit SQ AC 09/11/20 09/11/20 Unknown History Hydralazine HCl 50 tab PO TID 09/11/20 09/11/20 Unknown History Isosorbide Dinitrate 30 mg PO DAILY 09/11/20 09/11/20 Unknown History Lantus VIAL 54 units SQ HS 09/11/20 09/11/20 Unknown History Lasix 20 tab PO DAILY 09/11/20 09/11/20 Unknown History Nifedipine 30 tab PO DAILY 09/11/20 09/11/20 Unknown History Active Meds: Active Medications Acetaminophen (Acetaminophen 325 Mg/10.15 Ml Oral Liqd Unit Dose) 400 mg PO Q4HR PRN PRN Reason: Non Cardiac Pain or Temp>100.5 Last Admin: 09/14/20 23:38 Dose: 400 mg Documented by: Lipase/Protease/Amylase (Lipase 10,500/Protease 25,000/Amylase 43,750 (Units) Dr Armenta) 1 each FEEDTUBE PRN PRN PRN Reason: For Clogged Feeding Tube Famotidine (Famotidine 20 Mg/2 Ml Inj) 20 mg IV DAILY COUNTS INCLUDE 234 BEDS AT THE [facility] Last Admin: 09/20/20 10:50 Dose: 20 mg Documented by: Hydrophilic Ointment (Lip Therapy Vaseline) 1 applic TP Q2HR PRN PRN Reason: Dry Lips Propofol (Diprivan 10 Mg/Ml) 1,000 mg in 100 mls @ 4.995 mls/hr IV TITR COUNTS INCLUDE 234 BEDS AT THE [facility]; Protocol Last Titration: 09/15/20 07:00 Dose: 0 mcg/kg/min, 0 mls/hr Documented by: Sodium Chloride (Nacl 0.9%) 100 mls @ 999 mls/hr IV JAYJAY PRN PRN Reason: Hypotension Levetiracetam 1,500 mg/ (Dextrose) 115 mls @ 400 mls/hr IV BID COUNTS INCLUDE 234 BEDS AT THE [facility] Last Admin: 09/20/20 10:50 Dose: 400 mls/hr Documented by: Valproate Sodium 1,000 mg/ (Sodium Chloride) 110 mls @ 100 mls/hr IV Q12HR COUNTS INCLUDE 234 BEDS AT THE [facility] Last Admin: 09/20/20 10:50 Dose: 100 mls/hr Documented by: Insulin Human Lispro (Insulin Lispro 100 Unit/Ml) 0 unit SUB-Q Q6HR COUNTS INCLUDE 234 BEDS AT THE [facility]; Protocol Last Admin: 09/20/20 05:23 Dose: 3 unit Documented by: Lansoprazole (Lansoprazole 30 Mg Solutab) 30 mg FEEDTUBE BID COUNTS INCLUDE 234 BEDS AT THE [facility] Last Admin: 09/19/20 22:04 Dose: 30 mg Documented by: Lorazepam (Lorazepam 2 Mg/Ml Vial) 2 mg IV Q4H PRN PRN Reason: Seizures Last Admin: 09/14/20 13:36 Dose: 2 mg Documented by: Multi-Ingred Cream/Lotion/Oil/Oint (Mineral Oil/Petrolatum, White Ophth Oint 3.5 Gm) 1 applic OU Q4HR PRN PRN Reason: Dry Eye(s) Last Admin: 09/20/20 10:50 Dose: 1 applic Documented by: Multivitamins (Multivitamins 5 Ml Oral Liquid) 5 ml PO QDAY COUNTS INCLUDE 234 BEDS AT THE [facility] Last Admin: 09/20/20 10:51 Dose: Not Given Documented by: Ondansetron HCl (Ondansetron 4 Mg/2 Ml Inj) 4 mg IV Q8H PRN PRN Reason: Nausea And Vomiting Last Admin: 09/19/20 04:00 Dose: 4 mg Documented by: Senna/Docusate Sodium (Sennosides/Docusate Sodium 8.6/50 Mg Tab) 2 tab PO BID PRN PRN Reason: Laxative Effect Simple Syrup (Simple Syrup 15 Ml) 15 ml FEEDTUBE PRN PRN PRN Reason: Hypoglycemia Last Admin: 09/17/20 17:43 Dose: 15 ml Documented by: Simple Syrup (Simple Syrup 15 Ml) 30 ml FEEDTUBE PRN PRN PRN Reason: Hypoglycemia Sodium Bicarbonate (Sodium Bicarbonate 325 Mg Tab) 325 mg FEEDTUBE PRN PRN PRN Reason: For Clogged Feeding Tube Sodium Chloride (Sodium Chloride 0.9% 10 Ml Flush Syringe) 10 ml IV BID TAYLOR Last Admin: 09/20/20 10:51 Dose: 10 ml Documented by: Sodium Chloride (Sodium Chloride 0.9% 10 Ml Flush Syringe) 10 ml IV PRN PRN PRN Reason: LINE FLUSH Review of Systems ROS unobtainable: due to endotracheal tube, due to mental status Exam Vital Signs Pulse BP Pulse Ox 82 197/91 92 09/07/20 13:00 09/07/20 13:00 09/07/20 13:00 Narrative exam: Gen.: Intubated. Unresponsive. No response to any stimulus. ENT: Trachea midline. No lymphadenopathy. No corneal reflex. CV: S1, S2 present Respiratory: No audible wheezes. On vent Abdomen: Soft, obese, nondistended, nontender. No rebound, rigidity, guarding Extremities: +edema Results - Labs 09/20/20 05:36 09/20/20 05:36 Abnormal lab results 09/19/20 09/19/20 09/20/20 Range/Units 17:43 23:43 05:02 WBC (4.5-11.0) K/mm3 RBC (3.65-5.03) M/mm3 Hgb (11.8-15.2) gm/dl Hct (35.5-45.6) % RDW (13.2-15.2) % Lymph % (Auto) (13.4-35.0) % [place] % (Auto) (0.0-7.3) % [place] # (Auto) (0.0-0.8) K/mm3 Seg Neutrophils % (40.0-70.0) % Seg Neutrophils # (1.8-7.7) K/mm3 Potassium (3.6-5.0) mmol/L BUN (9-20) mg/dL Creatinine (0.8-1.3) mg/dL Glucose (75-100) mg/dL POC Glucose 114 H 136 H 163 H (70-105) mg/dL 09/20/20 09/20/20 Range/Units 05:36 05:36 WBC 20.1 H (4.5-11.0) K/mm3 RBC 3.07 L (3.65-5.03) M/mm3 Hgb 8.5 L (11.8-15.2) gm/dl Hct 26.4 L (35.5-45.6) % RDW 18.6 H (13.2-15.2) % Lymph % (Auto) 9.6 L (13.4-35.0) % [place] % (Auto) 9.6 H (0.0-7.3) % [place] # (Auto) 1.9 H (0.0-0.8) K/mm3 Seg Neutrophils % 79.0 H (40.0-70.0) % Seg Neutrophils # 15.9 H (1.8-7.7) K/mm3 Potassium 3.3 L (3.6-5.0) mmol/L BUN 76 H (9-20) mg/dL Creatinine 3.6 H D (0.8-1.3) mg/dL Glucose 213 H (75-100) mg/dL POC Glucose (70-105) mg/dL Diabetes panel 09/20/20 Range/Units 05:36 Sodium 145 (137-145) mmol/L Potassium 3.3 L (3.6-5.0) mmol/L Chloride 106.1 (98-107) mmol/L Carbon Dioxide 27 (22-30) mmol/L BUN 76 H (9-20) mg/dL Creatinine 3.6 H D (0.8-1.3) mg/dL Glucose 213 H (75-100) mg/dL Calcium 8.8 (8.4-10.2) mg/dL Calcium panel 09/20/20 Range/Units 05:36 Calcium 8.8 (8.4-10.2) mg/dL Pituitary panel 09/20/20 Range/Units 05:36 Sodium 145 (137-145) mmol/L Potassium 3.3 L (3.6-5.0) mmol/L Chloride 106.1 (98-107) mmol/L Carbon Dioxide 27 (22-30) mmol/L BUN 76 H (9-20) mg/dL Creatinine 3.6 H D (0.8-1.3) mg/dL Glucose 213 H (75-100) mg/dL Calcium 8.8 (8.4-10.2) mg/dL Adrenal panel 09/20/20 Range/Units 05:36 Sodium 145 (137-145) mmol/L Potassium 3.3 L (3.6-5.0) mmol/L Chloride 106.1 (98-107) mmol/L Carbon Dioxide 27 (22-30) mmol/L BUN 76 H (9-20) mg/dL Creatinine 3.6 H D (0.8-1.3) mg/dL Glucose 213 H (75-100) mg/dL Calcium 8.8 (8.4-10.2) mg/dL - Imaging Chest x-ray: report reviewed, image reviewed Abdominal x-ray: report reviewed, image reviewed Assessment and Plan 65 yo M with 1. VDRF 2. anoxic brain injury 3. morbid obesity 4. s/p cardiopulmonary arrest 5. COVID PNA - now COVID neg Plan: 1. Vent management per ICU 2. Tube feeds at goal, hold tube feeds after midnight tonight 3. Repeat a.m. labs 4. Patient is an acceptable candidate for tracheostomy and PEG tube placement. I discussed the procedure indications along with risks, benefits and alternatives with the patient's spouse over the telephone. I explained to her that the tracheostomy and PEG tube procedures are the next steps for aggressive management but will not change overall prognosis. Reiterated that prognosis for meaningful neurological recovery is poor. She understands and does want to proceed with trach/peg. Consent obtained. 5. Patient added to the OR for tomorrow 09/21/2020 at 7:[address] Carrillo Thank you for this consultation. Please call with any questions or concerns. Evaluation and treatment of this patient was during the time of the national and state emergency arising from COVID19 coronavirus pandemic. Treatment and procedures performed meet the current and available best practice and guidelines for patient during the COVID pandemic.
[2020-09-21] MEDS: INSULIN LISPRO 100 UNIT/ML SUB-Q SCH ×4 (00:26→19:04)
[2020-09-21 05:50] LABS: Basophils % (Auto) 0.1 % (0.0-1.8); Eosinophils # (Auto) 0.3 K/mm3 (0.0-0.4); Eosinophils % (Auto) 1.8 % (0.0-4.3); Hematocrit 25.8 % (35.5-45.6); Hemoglobin 8.3 gm/dl (11.8-15.2); Lymphocytes # (Auto) 1.9 K/mm3 (1.2-5.4); Lymphocytes % (Auto) 11.1 % (13.4-35.0); Mean Corpuscular HGB Conc 32 % (32-34); Mean Corpuscular Volume 87 fl (84-94); Monocytes # (Auto) 1.9 K/mm3 (0.0-0.8); Monocytes % (Auto) 11.1 % (0.0-7.3); Platelet Count 212 K/mm3 (140-440); Red Blood Count 2.95 M/mm3 (3.65-5.03); Red Cell Distribution Width 19.3 % (13.2-15.2)
[2020-09-21 05:57] LABS: Calcium 9.4 mg/dL (8.4-10.2)
--- NOTE | 2020-09-21 08:19 | Progress Note ---
Assessment and Plan Assessment and plan: S/p cardiopulmonary arrest Toxic metabolic encephalopathy +/-anoxic injury Acute hypoxic respiratory failure Acute kidney injury Seizure disorder Hyperkalemia COVID-19 pneumonia Sepsis Transaminitis Morbid obesity. 09/15/2020. MRI brain for further evaluation. Continue AEDs of valproic acid and Keppra. Continue hemodialysis per nephrology recommendations. Overall prognosis remains guarded and poor. 09/16/2020. ID recommends continue to monitor patient off of antibiotics. Fever most likely of central etiology. Patient with questionable seizures versus myoclonus from anoxic brain injury. Patient unable to undergo MRI due to body habitus. Continue AEDs per neurology recommendations. Inflammatory markers elevated. Patient was recently hospitalized for COVID-19 pneumonia at the [place] prior to being hospitalized here. Patient not a candidate for remdesivir due to hepatic and renal failure. Viral hepatitis panel negative. Overall prognosis extremely poor. 09/17/2020. Fevers have resolved over the past 48 hours. Continue to monitor off antibiotics per ID recommendations. Patient with questionable seizures versus myoclonus from anoxic brain injury. Patient unable to undergo MRI due to body habitus. EEG is nonspecific but given CT of head findings consistent with anoxic encephalopathy, brain injury. Continue AEDs per neurology recommendations. Inflammatory markers elevated. Patient was recently hospitalized for COVID-19 pneumonia at the [place] prior to being hospitalized here. Patient not a candidate for remdesivir due to hepatic and renal failure. Viral hepatitis panel negative. Patient is s/p emergent HD on Friday (hyperK) and Friday - 09/08. Patient also S/p HD 09/15. Continue hemodialysis per nephrology recommendations. Patient currently on AC/PRVC mode ventilation with rate of 30, tidal volume 475, FiO2 30% and PEEP of 6. As stated in neuro note, overall prognosis is very poor. 09/18/2020. Fevers have resolved over the past 72 hours. Continue to monitor off antibiotics per ID recommendations. Leukocytosis persistent for the past 4 days. Patient with questionable seizures/myoclonus from anoxic brain injury. Patient unable to undergo MRI due to body habitus. EEG is nonspecific but given CT of head findings consistent with anoxic encephalopathy, brain injury. Continue AEDs per neurology recommendations. Inflammatory markers elevated. Patient was recently hospitalized for COVID-19 pneumonia at the [place] being [place]. Patient not a candidate for remdesivir due to hepatic and renal failure. Viral hepatitis panel negative. Patient currently on AC/PRVC mode ventilation with rate of 30, tidal volume 475, FiO2 30% and PEEP of 6. Overall prognosis remains guarded/poor. 07/19/2021 Fevers have resolved over the past 4 days. Continue to monitor off antibiotics per ID recommendations. Leukocytosis persistent for the past 4 days. Patient with questionable seizures/myoclonus from anoxic brain injury. Patient unable to undergo MRI due to body habitus. EEG is nonspecific but given CT of head findings consistent with anoxic encephalopathy, brain injury. Continue AEDs per neurology recommendations. Inflammatory markers elevated. Patient was recently hospitalized for COVID-19 pneumonia at the [place] prior to being hospitalized [place]. Patient not a candidate for remdesivir due to hepatic and renal failure. Viral hepatitis panel negative. Patient currently on AC/PRVC mode ventilation with rate of 30, tidal volume 475, FiO2 30% and PEEP of 6. Overall prognosis remains guarded/poor. 09/20/2020 -Surgery consulted for PEG and trach, will continue to follow. 09/21/2020; patient will have PEG and trach by Dr. haeys today. Prognosis is poor. Continue with current management. 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 The high probability of a clinically significant, sudden or life threatening det erioration of the [cardiac, respiratory and neurological] system(s) required my full and direct attention, intervention and personal management. The aggregate critical care time was [32] minutes. This time is in addition to time spent performing reported procedures but includes the following: [x] Data Review and interpretation [x] Patient assessment and monitoring of vital signs [x] Documentation [x] Medication orders and management History Interval history: Patient was intubated and sedated Patient is on mechanical ventilator Patient is going to have PEG and trach by Dr. Hayes today Hospitalist Physical - Physical exam Narrative exam: On mechanical ventilation. The patient appeared well nourished and normally developed. Vital signs as documented. Head exam is unremarkable. No scleral icterus . Neck is without jugular venous distension, thyromegaly, or carotid bruits. Lungs are clear to auscultation. Cardiac exam reveals regular rate and Rhythm. Abdominal exam reveals normal bowel sounds, nontender, no organomegaly. Extremities are nonedematous and both femoral and pedal pulses are normal. 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 - Constitutional Vitals: Temp Pulse Resp BP Pulse Ox 98.1 F 58 L 17 155/68 100 09/21/20 07:00 09/21/20 07:34 09/21/20 06:00 09/21/20 07:34 09/21/20 07:34 General appearance: Present: other (Intubated sedated) HEART Score - HEART Score Troponin: Troponin T 0.076 ng/mL (0.00-0.029) H 09/07/20 14:00 Results - Labs CBC & Chem 7: 09/21/20 05:00 09/21/20 05:00 Labs: Laboratory Last Values WBC 17.4 K/mm3 (4.5-11.0) H 09/21/20 05:00 RBC 2.95 M/mm3 (3.65-5.03) L 09/21/20 05:00 Hgb 8.3 gm/dl (11.8-15.2) L 09/21/20 05:00 Hct 25.8 % (35.5-45.6) L 09/21/20 05:00 MCV 87 fl (84-94) 09/21/20 05:00 MCH 28 pg (28-32) 09/21/20 05:00 MCHC 32 % (32-34) 09/21/20 05:00 RDW 19.3 % (13.2-15.2) H 09/21/20 05:00 Plt Count 212 K/mm3 (140-440) 09/21/20 05:00 Lymph % (Auto) 11.1 % (13.4-35.0) L 09/21/20 05:00 [place] % (Auto) 11.1 % (0.0-7.3) H 09/21/20 05:00 Eos % (Auto) 1.8 % (0.0-4.3) 09/21/20 05:00 Baso % (Auto) 0.1 % (0.0-1.8) 09/21/20 05:00 Lymph # (Auto) 1.9 K/mm3 (1.2-5.4) 09/21/20 05:00 [place] # (Auto) 1.9 K/mm3 (0.0-0.8) H 09/21/20 05:00 Eos # (Auto) 0.3 K/mm3 (0.0-0.4) 09/21/20 05:00 Baso # (Auto) 0.0 K/mm3 (0.0-0.1) 09/21/20 05:00 Add Manual Diff Complete 09/19/20 05:13 Total Counted 100 09/19/20 05:13 Seg Neutrophils % 75.9 % (40.0-70.0) H 09/21/20 05:00 Seg Neuts % (Manual) 87.0 % (40.0-70.0) H 09/19/20 05:13 Band Neutrophils % 1.0 % 09/19/20 05:13 Lymphocytes % (Manual) 5.0 % (13.4-35.0) L 09/19/20 05:13 Monocytes % (Manual) 7.0 % (0.0-7.3) 09/19/20 05:13 Eosinophils % (Manual) 2.0 % (0.0-4.3) 09/07/20 14:00 Metamyelocytes % 2.0 % 09/08/20 Unknown Nucleated RBC % Not Reportable 09/19/20 05:13 Seg Neutrophils # 13.2 K/mm3 (1.8-7.7) H 09/21/20 05:00 Seg Neutrophils # Man 19.8 K/mm3 (1.8-7.7) H 09/19/20 05:13 Band Neutrophils # 0.2 K/mm3 09/19/20 05:13 Lymphocytes # (Manual) 1.1 K/mm3 (1.2-5.4) L 09/19/20 05:13 Abs React Lymphs (Man) 0.0 K/mm3 09/19/20 05:13 Monocytes # (Manual) 1.6 K/mm3 (0.0-0.8) H 09/19/20 05:13 Eosinophils # (Manual) 0.0 K/mm3 (0.0-0.4) 09/19/20 05:13 Basophils # (Manual) 0.0 K/mm3 (0.0-0.1) 09/19/20 05:13 Metamyelocytes # 0.0 K/mm3 09/19/20 05:13 Myelocytes # 0.0 K/mm3 09/19/20 05:13 Promyelocytes # 0.0 K/mm3 09/19/20 05:13 Blast Cells # 0.0 K/mm3 09/19/20 05:13 WBC Morphology Not Reportable 09/19/20 05:13 Hypersegmented Neuts Not Reportable 09/19/20 05:13 Hyposegmented Neuts Not Reportable 09/19/20 05:13 Hypogranular Neuts Not Reportable 09/19/20 05:13 Smudge Cells Not Reportable 09/19/20 05:13 Toxic Granulation Not Reportable 09/19/20 05:13 Toxic Vacuolation Not Reportable 09/19/20 05:13 Dohle Bodies Not Reportable 09/19/20 05:13 Pelger-Huet Anomaly Not Reportable 09/19/20 05:13 Justus Rods Not Reportable 09/19/20 05:13 Platelet Estimate Consistent w auto 09/19/20 05:13 Clumped Platelets Not Reportable 09/19/20 05:13 Plt Clumps, EDTA Not Reportable 09/19/20 05:13 Large Platelets Not Reportable 09/19/20 05:13 Giant Platelets Not Reportable 09/19/20 05:13 Platelet Satelliting Not Reportable 09/19/20 05:13 Plt Morphology Comment Not Reportable 09/19/20 05:13 RBC Morphology Not Reportable 09/19/20 05:13 Dimorphic RBCs Not Reportable 09/19/20 05:13 Polychromasia Not Reportable 09/19/20 05:13 Hypochromasia Not Reportable 09/19/20 05:13 Poikilocytosis Not Reportable 09/19/20 05:13 Anisocytosis 1+ 09/19/20 05:13 Microcytosis Not Reportable 09/19/20 05:13 Macrocytosis Not Reportable 09/19/20 05:13 Spherocytes Not Reportable 09/19/20 05:13 Pappenheimer Bodies Not Reportable 09/19/20 05:13 Sickle Cells Not Reportable 09/19/20 05:13 Target Cells Not Reportable 09/19/20 05:13 Tear Drop Cells Not Reportable 09/19/20 05:13 Ovalocytes Not Reportable 09/19/20 05:13 Helmet Cells Not Reportable 09/19/20 05:13 Batres-Paisley Bodies Not Reportable 09/19/20 05:13 [place] Rings Not Reportable 09/19/20 05:13 Manjit Cells Not Reportable 09/19/20 05:13 Bite Cells Not Reportable 09/19/20 05:13 Crenated Cell Not Reportable 09/19/20 05:13 Elliptocytes Not Reportable 09/19/20 05:13 Acanthocytes (Spur) Not Reportable 09/19/20 05:13 Rouleaux Not Reportable 09/19/20 05:13 Hemoglobin C Crystals Not Reportable 09/19/20 05:13 Schistocytes Not Reportable 09/19/20 05:13 Malaria parasites Not Reportable 09/19/20 05:13 Tommie Bodies Not Reportable 09/19/20 05:13 Hem Pathologist Commnt No 09/19/20 05:13 PT 16.1 Sec. (12.2-14.9) H 09/12/20 04:00 INR 1.31 (0.87-1.13) H 09/12/20 04:00 APTT 32.4 Sec. (24.2-36.6) 09/09/20 10:00 D-Dimer 8315.85 ng/mlDDU (0-234) H 09/07/20 14:00 ABG pH 7.442 (7.320-7.450) 09/14/20 03:54 POC ABG pCO2 42.3 mmHg (32.0-48.0) 09/14/20 03:54 ABG pCO2 33.4 mm Hg 09/11/20 05:40 POC ABG pO2 71.1 mmHg (83-108) L 09/14/20 03:54 ABG pO2 112.1 mm Hg (80.0-90.0) H 09/11/20 05:40 POC ABG HCO3 28.2 09/14/20 03:54 ABG HCO3 28.1 mmol/L (20.0-26.0) H 09/11/20 05:40 ABG O2 Saturation 98.4 % (95.0-99.0) 09/11/20 05:40 ABG O2 Content 11.6 (0.0-44) 09/11/20 05:40 POC ABG Base Excess 3.7 09/14/20 03:54 ABG Base Excess 5.4 mmol/L (-2.0-3.0) H 09/11/20 05:40 ABG Hemoglobin 10.3 (12.0-17.5) L 09/14/20 03:54 ABG Oxyhemoglobin 93.2 (94-98) L 09/13/20 04:47 ABG Carboxyhemoglobin 1.2 % (0.0-5.0) 09/11/20 05:40 ABG Methemoglobin 0.3 (0.0-1.5) 09/13/20 04:47 ABG Sodium 135.2 mmol/L (136.0-145.0) L 09/14/20 03:54 ABG Potassium 3.8 mmol/L (3.40-4.50) 09/14/20 03:54 ABG Chloride 98.0 mmol/L (98-107) 09/14/20 03:54 ABG Glucose 281 mg/dL (65-95) H 09/14/20 03:54 Oxyhemoglobin 96.8 % (95.0-99.0) 09/11/20 05:40 Carboxyhemoglobin 0.4 (0.5-1.5) L 09/13/20 04:47 FiO2 30 09/14/20 03:54 Sodium 143 mmol/L (137-145) 09/21/20 05:00 Potassium 3.9 mmol/L (3.6-5.0) 09/21/20 05:00 Chloride 104.8 mmol/L (98-107) 09/21/20 05:00 Carbon Dioxide 23 mmol/L (22-30) 09/21/20 05:00 Anion Gap 19 mmol/L 09/21/20 05:00 BUN 60 mg/dL (9-20) H 09/21/20 05:00 Creatinine 3.5 mg/dL (0.8-1.3) H 09/21/20 05:00 Estimated GFR 21 ml/min 09/21/20 05:00 BUN/Creatinine Ratio 17 % 09/21/20 05:00 Glucose 185 mg/dL (75-100) H 09/21/20 05:00 POC Glucose 139 mg/dL (70-105) H 09/21/20 05:24 Lactic Acid 2.90 mmol/L (0.7-2.0) H* 09/17/20 13:52 Calcium 9.4 mg/dL (8.4-10.2) 09/21/20 05:00 Phosphorus 8.00 mg/dL (2.5-4.5) H 09/08/20 12:02 Magnesium 1.80 mg/dL (1.7-2.3) 09/08/20 12:02 Ferritin > 2000.0 ng/mL (30.0-300.0) H 09/07/20 14:00 Total Bilirubin 0.90 mg/dL (0.1-1.2) 09/17/20 04:00 Direct Bilirubin 0.5 mg/dL (0-0.2) H 09/08/20 05:00 Indirect Bilirubin 0.5 mg/dL 09/08/20 05:00 AST 64 units/L (5-40) H 09/17/20 04:00 ALT 516 units/L (7-56) H 09/17/20 04:00 Alkaline Phosphatase 87 units/L (35-129) 09/17/20 04:00 Ammonia 50.0 umol/L (25-60) 09/07/20 14:00 Lactate Dehydrogenase 882 units/L (91-180) H 09/07/20 14:00 Total Creatine Kinase 477 units/L (55-170) H 09/07/20 14:00 Troponin T 0.076 ng/mL (0.00-0.029) H 09/07/20 14:00 C-Reactive Protein 1.10 mg/dL (0.00-1.30) 09/07/20 14:00 Total Protein 5.7 g/dL (6.3-8.2) L 09/17/20 04:00 Albumin 2.8 g/dL (3.9-5) L 09/17/20 04:00 Albumin/Globulin Ratio 1.0 % 09/17/20 04:00 Triglycerides 220 mg/dL (2-149) H 09/12/20 Unknown Procalcitonin 1.52 ng/mL (<0.15) 09/17/20 13:02 TSH 2.290 mlU/mL (0.270-4.200) 09/07/20 14:00 Arterial Blood Glucose 281 mg/dL (65-95) H 09/14/20 03:54 Arterial Blood Ionized Calcium 4.6 mg/dL (4.6-5.3) 09/14/20 03:54 Urine Color Straw (Yellow) 09/07/20 13:08 Urine Turbidity Slightly-cloudy (Clear) 09/07/20 13:08 Urine pH 8.0 (5.0-7.0) H 09/07/20 13:08 Ur Specific [place] 1.006 (1.003-1.030) 09/07/20 13:08 Urine Protein 100 mg/dl mg/dL (Negative) 09/07/20 13:08 Urine Glucose (UA) Neg mg/dL (Negative) 09/07/20 13:08 Urine Ketones Neg mg/dL (Negative) 09/07/20 13:08 Urine Blood Neg (Negative) 09/07/20 13:08 Urine Nitrite Neg (Negative) 09/07/20 13:08 Urine Bilirubin Neg (Negative) 09/07/20 13:08 Urine Urobilinogen < 2.0 mg/dL (<2.0) 09/07/20 13:08 Ur Leukocyte Esterase Neg (Negative) 09/07/20 13:08 Urine WBC (Auto) 4.0 /HPF (0.0-6.0) 09/07/20 13:08 Urine RBC (Auto) 18.0 /HPF (0.0-6.0) 09/07/20 13:08 U Epithel Cells (Auto) 1.0 /HPF (0-13.0) 09/07/20 13:08 Urine Mucus Few /HPF 09/07/20 13:08 Urine Sperm 3+ /HPF (UTILITY BILL COLLECTOR) 09/07/20 13:08 Urine Creatinine 182.4 mg/dL (0.1-20.0) H 09/08/20 Unknown Urine Sodium 40 mmol/L 09/08/20 Unknown Salicylates < 0.3 mg/dL (2.8-20.0) L 09/07/20 14:00 Acetaminophen 5.0 ug/mL (10.0-30.0) L 09/07/20 14:00 Plasma/Serum Alcohol < 0.01 % (0-0.07) 09/07/20 14:00 Coronavirus (PCR) Negative (Negative) 09/19/20 Unknown Hepatitis A IgM Ab Non-reactive (NonReactive) 09/07/20 14:00 Hep Bs Antigen Non-reactive (Negative) 09/07/20 14:00 Hep B Core IgM Ab Non-reactive (NonReactive) 09/07/20 14:00 Hepatitis C Antibody Non-reactive (NonReactive) 09/07/20 14:00 HIV 1&2 Antibody Rapid Non react (Non React) 09/07/20 14:34 HIV P24 Antigen Non react (Non React) 09/07/20 14:34 Blood Type O POSITIVE 09/09/20 10:00 Antibody Screen Negative 09/07/20 14:00 Mae/IV: Voiding Method Indwelling Catheter IV Catheter Type [Right Triple Lumen Cath Femoral] IV Catheter Type [Left Peripheral IV Antecubital] IV Catheter Type [Left Hand] Peripheral IV IV Catheter Type [Right Peripheral IV Antecubital] Active Medications - Current Medications Current Medications: Generic Name Dose Route Start Last Admin Trade Name Freq PRN Reason Stop Dose Admin Acetaminophen 400 mg 09/10/20 20:50 09/14/20 23:38 Acetaminophen 325 Mg/10.15 Ml Oral Liqd Unit Dose PO 400 mg Q4HR PRN Administration Non Cardiac Pain or Temp>100.5 Lipase/Protease/Amylase 1 each 09/09/20 09:40 Lipase 10,500/Protease 25,000/Amylase 43,750 (Units) Dr Armenta FEEDTUBE PRN PRN For Clogged Feeding Tube Famotidine 20 mg 09/20/20 11:00 09/20/20 10:50 Famotidine 20 Mg/2 Ml Inj IV 20 mg DAILY TAYLOR Administration Hydrophilic Ointment 1 applic 09/07/20 13:08 Lip Therapy Vaseline TP Q2HR PRN Dry Lips Propofol 1,000 mg in 100 mls @ 4.995 mls/hr 09/08/20 20:00 09/15/20 07:00 Diprivan 10 Mg/Ml IV 0 mcg/kg/min TITR TAYLOR 0 mls/hr Titration Protocol 5 MCG/KG/MIN Sodium Chloride 100 mls @ 999 mls/hr 09/09/20 13:36 Nacl 0.9% IV JAYJAY PRN Hypotension Levetiracetam 1,500 mg/ 115 mls @ 400 mls/hr 09/11/20 10:00 09/20/20 21:10 Dextrose IV 400 mls/hr BID TAYLOR Administration Valproate Sodium 1,000 mg/ 110 mls @ 100 mls/hr 09/14/20 22:00 09/20/20 21:13 Sodium Chloride IV 100 mls/hr Q12HR TAYLOR Administration Insulin Human Lispro 0 unit 09/12/20 12:00 09/21/20 06:18 Insulin Lispro 100 Unit/Ml SUB-Q Not Given Q6HR [facility] Protocol Lansoprazole 30 mg 09/11/20 11:00 09/19/20 22:04 Lansoprazole 30 Mg Solutab FEEDTUBE 30 mg BID TAYLOR Administration Lorazepam 2 mg 09/08/20 00:14 09/14/20 13:36 Lorazepam 2 Mg/Ml Vial IV 2 mg Q4H PRN Administration Seizures Multi-Ingred Cream/Lotion/Oil/Oint 1 applic 09/07/20 13:08 09/20/20 10:50 Mineral Oil/Petrolatum, White Ophth Oint 3.5 Gm OU 1 applic Q4HR PRN Administration Dry Eye(s) Multivitamins 5 ml 09/09/20 12:00 09/20/20 10:51 Multivitamins 5 Ml Oral Liquid PO Not Given QDAY [facility] Ondansetron HCl 4 mg 09/07/20 17:55 09/19/20 04:00 Ondansetron 4 Mg/2 Ml Inj IV 4 mg Q8H PRN Administration Nausea And Vomiting Senna/Docusate Sodium 2 tab 09/20/20 11:00 Sennosides/Docusate Sodium 8.6/50 Mg Tab PO BID PRN Laxative Effect Simple Syrup 15 ml 09/09/20 09:40 09/17/20 17:43 Simple Syrup 15 Ml FEEDTUBE 15 ml PRN PRN Administration Hypoglycemia Simple Syrup 30 ml 09/09/20 09:40 Simple Syrup 15 Ml FEEDTUBE PRN PRN Hypoglycemia Sodium Bicarbonate 325 mg 09/09/20 09:40 Sodium Bicarbonate 325 Mg Tab FEEDTUBE PRN PRN For Clogged Feeding Tube Sodium Chloride 10 ml 09/07/20 22:00 09/20/20 21:16 Sodium Chloride 0.9% 10 Ml Flush Syringe IV 10 ml BID TAYLOR Administration Sodium Chloride 10 ml 09/07/20 17:55 Sodium Chloride 0.9% 10 Ml Flush Syringe IV PRN PRN LINE FLUSH Nutrition/Malnutrition Assess - Dietary Evaluation Nutrition/Malnutrition Findings: Nutrition Notes Start: 09/08/20 12:01 Freq: Status: Active Protocol: Document 09/19/20 11:05 MAYURI (Rec: 09/19/20 11:16 MAYURI [id number]) Co-Sign 09/19/20 11:05 MK Nutrition Notes Initial or Follow up Reassessment Current Diagnosis Acute Kidney Injury Other Pertinent Diagnosis acute renal failure on HD, cardiac arrest, possible seizures, COVID(+), AMS Current Diet Nepro 1.8 at 45 ml/hr Labs/Tests BUN 55 Cr 2.3 BG 196 Pertinent Medications Humalog 3 units MVI Height 6 ft Weight 166.5 kg [place] Body Weight (kg) 80.90 BMI 49.8 Weight Status Morbidly Obese Subjective/Other Information F/u TF tolerance and BM. Per chart, pt has had 1 BM last 3 days. Pt had vomitting episode of 400 ml yesterday. Today, observed TF hanging. Burn Absent Trauma Absent GI Symptoms Vomiting Current % PO Negligible Minimum of two criteria No physical signs of malnutrition #1 Nutrition Diagnosis Inadequate oral intake Diagnosis Progress(for reassessment Continues documentation) Is patient on ventilator? Yes Is Patient Ambulatory and/or Out of Bed No REE-([facility]-confined to bed) 2995.752 Kcal/Kg value to use for calculation 12 Approximate Energy Requirements Using 1998 kcal/Kg Calculation Used for Recommendations Kcal/kg Additional Notes PRO needs: >202g (> 2.5g/kg IBW 80.9kg) Fluid needs: 1 mL/kcal or per MD Nutrition Intervention Change Diet Order: Continue TF Nutrition Support: Nepro 1.8 at 45 mL/hr Flush 200 mL q4h Kcal 1,944 Protein (gm) 87 Fluid (mL) 785 % RDI: 100% Goal #1 Meet at least 65% energy and protein needs (due to morbid obesity guidelines) Anticipated Discharge Needs: Unable to determine Follow-Up By: 09/21/20 Additional Comments F/u for TF tolerance
--- NOTE | 2020-09-21 10:03 | Progress Note ---
Assessment and Plan Impression: * Nonoliguric RYAN secondary to ATN * Severe hyperkalemia - resolved * COVID 19 PNA * s/p OOH cardiac arrest * Acute hypoxic respiratory failure * Seizure activity * Anemia Plan: * Patient is s/p emergent HD - 09/08 * Continue MWF * Check labs daily * Strict I/O * Monitor for renal recovery * Keep MAP > 65 * Vent management per CCM * Steroids per primary team/ID * Dose medications for renal function * Avoid potential nephrotoxins * Prognosis is guarded Subjective Date of service: 09/21/20 Principal diagnosis: Abnormal LFTs, s/p cardiac arrest, acute kidney injury with ATN Interval history: resting in bed today Objective - Exam Narrative Exam: Deferred for PPE conservation and to prevent spread of infection - Vital Signs Vital signs: Vital Signs - 12hr 09/20/20 09/21/20 09/21/20 23:00 00:00 00:04 Temperature 98.4 F Pulse Rate 63 61 60 Respiratory 30 H 20 22 Rate Blood Pressure 135/69 143/66 143/66 O2 Sat by Pulse 100 100 99 Oximetry 09/21/20 09/21/20 09/21/20 00:22 00:25 01:00 Temperature Pulse Rate 60 61 62 Respiratory 25 H Rate Blood Pressure 143/69 134/68 O2 Sat by Pulse 99 100 Oximetry 09/21/20 09/21/20 09/21/20 02:00 03:00 03:45 Temperature 97.9 F Pulse Rate 60 60 Respiratory 21 30 H Rate Blood Pressure 155/67 143/70 O2 Sat by Pulse 99 100 Oximetry 09/21/20 09/21/20 09/21/20 04:00 04:17 04:40 Temperature Pulse Rate 61 61 60 Respiratory 13 15 Rate Blood Pressure 144/64 149/69 145/68 O2 Sat by Pulse 99 100 100 Oximetry 09/21/20 09/21/20 09/21/20 04:50 05:00 05:10 Temperature Pulse Rate 59 L 60 59 L Respiratory 13 19 18 Rate Blood Pressure 149/69 135/66 135/66 O2 Sat by Pulse 100 100 100 Oximetry 09/21/20 09/21/20 09/21/20 05:20 05:31 06:00 Temperature Pulse Rate 60 59 L Respiratory 18 18 17 Rate Blood Pressure 130/61 164/72 O2 Sat by Pulse 100 100 100 Oximetry 09/21/20 09/21/20 07:00 07:34 Temperature 98.1 F Pulse Rate 58 L Respiratory Rate Blood Pressure 155/68 O2 Sat by Pulse 100 Oximetry - Lab 09/21/20 05:00 09/21/20 05:00 Most recent lab results ABG pH 7.442 (7.320-7.450) 09/14/20 03:54 ABG pCO2 33.4 mm Hg 09/11/20 05:40 ABG pO2 112.1 mm Hg (80.0-90.0) H 09/11/20 05:40 ABG HCO3 28.1 mmol/L (20.0-26.0) H 09/11/20 05:40 ABG O2 Saturation 98.4 % (95.0-99.0) 09/11/20 05:40 Calcium 9.4 mg/dL (8.4-10.2) 09/21/20 05:00 Phosphorus 8.00 mg/dL (2.5-4.5) H 09/08/20 12:02 Magnesium 1.80 mg/dL (1.7-2.3) 09/08/20 12:02 Urine Creatinine 182.4 mg/dL (0.1-20.0) H 09/08/20 Unknown Urine Sodium 40 mmol/L 09/08/20 Unknown Medications & Allergies - Medications Allergies/Adverse Reactions: Allergies Unable to Assess Allergy (Verified 09/07/20 13:43) intubated Home Medications: Home Medications Medication Instructions Recorded Confirmed Last Taken Type Albuterol Sulfate 60 mcg IH PRN 09/11/20 09/11/20 Unknown History Cholecalciferol (Vitamin D3) 25 tab PO DAILY 09/11/20 09/11/20 Unknown History Cozaar 25 tab PO DAILY 09/11/20 09/11/20 Unknown History HumaLOG 14 unit SQ AC 09/11/20 09/11/20 Unknown History Hydralazine HCl 50 tab PO TID 09/11/20 09/11/20 Unknown History Isosorbide Dinitrate 30 mg PO DAILY 09/11/20 09/11/20 Unknown History Lantus VIAL 54 units SQ HS 09/11/20 09/11/20 Unknown History Lasix 20 tab PO DAILY 09/11/20 09/11/20 Unknown History Nifedipine 30 tab PO DAILY 09/11/20 09/11/20 Unknown History Active Medications: Generic Name Dose Route Start Last Admin Trade Name Freq PRN Reason Stop Dose Admin Acetaminophen 400 mg 09/10/20 20:50 09/14/20 23:38 Acetaminophen 325 Mg/10.15 Ml Oral Liqd Unit Dose PO 400 mg Q4HR PRN Administration Non Cardiac Pain or Temp>100.5 Lipase/Protease/Amylase 1 each 09/09/20 09:40 Lipase 10,500/Protease 25,000/Amylase 43,750 (Units) Dr Armenta FEEDTUBE PRN PRN For Clogged Feeding Tube Famotidine 20 mg 09/20/20 11:00 09/20/20 10:50 Famotidine 20 Mg/2 Ml Inj IV 20 mg DAILY TAYLOR Administration Hydrophilic Ointment 1 applic 09/07/20 13:08 Lip Therapy Vaseline TP Q2HR PRN Dry Lips Propofol 1,000 mg in 100 mls @ 4.995 mls/hr 09/08/20 20:00 09/15/20 07:00 Diprivan 10 Mg/Ml IV 0 mcg/kg/min TITR TAYLOR 0 mls/hr Titration Protocol 5 MCG/KG/MIN Sodium Chloride 100 mls @ 999 mls/hr 09/09/20 13:36 Nacl 0.9% IV JAYJAY PRN Hypotension Levetiracetam 1,500 mg/ 115 mls @ 400 mls/hr 09/11/20 10:00 09/20/20 21:10 Dextrose IV 400 mls/hr BID TAYLOR Administration Valproate Sodium 1,000 mg/ 110 mls @ 100 mls/hr 09/14/20 22:00 09/20/20 21:13 Sodium Chloride IV 100 mls/hr Q12HR TAYLOR Administration Insulin Human Lispro 0 unit 09/12/20 12:00 09/21/20 06:18 Insulin Lispro 100 Unit/Ml SUB-Q Not Given Q6HR TAYLOR Protocol Lansoprazole 30 mg 09/11/20 11:00 09/19/20 22:04 Lansoprazole 30 Mg Solutab FEEDTUBE 30 mg BID TAYLOR Administration Lorazepam 2 mg 09/08/20 00:14 09/14/20 13:36 Lorazepam 2 Mg/Ml Vial IV 2 mg Q4H PRN Administration Seizures Multi-Ingred Cream/Lotion/Oil/Oint 1 applic 09/07/20 13:08 09/20/20 10:50 Mineral Oil/Petrolatum, White Ophth Oint 3.5 Gm OU 1 applic Q4HR PRN Administration Dry Eye(s) Multivitamins 5 ml 09/09/20 12:00 09/20/20 10:51 Multivitamins 5 Ml Oral Liquid PO Not Given QDAY TAYLOR Ondansetron HCl 4 mg 09/07/20 17:55 09/19/20 04:00 Ondansetron 4 Mg/2 Ml Inj IV 4 mg Q8H PRN Administration Nausea And Vomiting Senna/Docusate Sodium 2 tab 09/20/20 11:00 Sennosides/Docusate Sodium 8.6/50 Mg Tab PO BID PRN Laxative Effect Simple Syrup 15 ml 09/09/20 09:40 09/17/20 17:43 Simple Syrup 15 Ml FEEDTUBE 15 ml PRN PRN Administration Hypoglycemia Simple Syrup 30 ml 09/09/20 09:40 Simple Syrup 15 Ml FEEDTUBE PRN PRN Hypoglycemia Sodium Bicarbonate 325 mg 09/09/20 09:40 Sodium Bicarbonate 325 Mg Tab FEEDTUBE PRN PRN For Clogged Feeding Tube Sodium Chloride 10 ml 09/07/20 22:00 09/20/20 21:16 Sodium Chloride 0.9% 10 Ml Flush Syringe IV 10 ml BID TAYLOR Administration Sodium Chloride 10 ml 09/07/20 17:55 Sodium Chloride 0.9% 10 Ml Flush Syringe IV PRN PRN LINE FLUSH
[2020-09-21] MEDS: VALPROATE SODIUM 1,000 MG in SODIUM CHLORIDE 0.9% 100 ML IV SCH ×2 (10:34→21:03)
[2020-09-21] MEDS: FAMOTIDINE 20 MG/2 ML INJ IV SCH (10:34)
[2020-09-21] MEDS: levETIRAcetam 1,500 MG in DEXTROSE 5% IN WATER 100 ML IV SCH ×2 (10:35→21:03)
[2020-09-21] MEDS: MULTIVITAMINS 5 ML ORAL LIQUID PO SCH (10:43)
--- NOTE | 2020-09-21 11:08 | Progress Note ---
Assessment and Plan 65 y/o male with out of hospital cardiac arrest now sedated on ativan for possible seizures. 09/21/20: Trach and peg today. Continue with vent weaning. Hopeful we can wean him off the vent once trached. Only place [facility] will cover is SNF. Prognosis remains very poor for recovery of functional state. 09/20/20: Placed consult to surgery now that COVID is negative. However, patient is morbidly obese and his surgery will likely be a complicated one especially with peg placement. Await surgery eval and recs. HD per renal. Continue daily PSV trials, mental status precludes extubation traditionally but maybe able to wean off vent with stable airway such as trach. [facility] has denied transfer and placement requests at this time based on CM notes. Prognosis is very poor, but after speaking with neurology and neurosurgery, patient wishes to continue aggressive measures. 09/19/20: Ordered repeat COVID as surgery will not do trach and peg until negative status. Continue supportive measures. Prognosis is very very poor but family wishes to proceed with terminal gauger care. 09/18/20: Unable to fit in MRI. Repeat CT showed improvement in edema but no clinical response is seen with this. Will continue Antiepileptic therapy. If wishes to proceed, will need trach and peg. Not sure if he would be candidate for PEG given his size but will ask surgery. Will need repeat COVID test prior to surgery. 09/15/20: Order MRI brain without contrast. Per surgery this will help to add more in regards to prognosis. Continue Valproic Acid and Keppra for seizure therapy. HD going now per renal. Overall prognosis remains guarded to poor. Please reach out to over the weekend to update her as I am not rounding this weekend, ,my partner will be covering. 09/14/20: Will load with valproic acid and then start to wean Diprovan. Spoke with today, very tearful on the phone. Explained to that Neurosurgery would come and eval tonjose but not a candidate for the other therapies she asked about since his edema is related to anoxic injury. Very very poor prognosis. 09/13/20: Per current neuro available, the neurologist from yesterday will call today. EEG is nonspecific but given CT of head findings consistent with anoxic encephalopathy, brain injury. As stated in neuro note, overall prognosis is very poor. Will continue to wean down diprovan to see if patient's seizures have been controlled with current Keppra dosing. Will call once she has spoken to neuro to get her thoughts on the next steps. (trach and peg, vs hospice as well as code status). Very very poor prognosis. 09/12/20: Long discussion with this am. Given recent head CT results, prognosis for full functional recovery is very POOR and neurology agrees. They will see in consult today. I have spoken to about AND and she is going to discuss with the family. The neurologist has stated they will reach out to the today. I am going to attempt to wean the ativan off and then start to wean the diprovan as long as no seizure activity is seen. Patient is now bradycardic, likely secondary to neuro state. I hope that he is not about to herniate. Patient is also like in Neurogenic DI given large urine out put volume. Very very poor prognosis. Continue supportive measures. 09/11/20: Will increase Keppra to 1500 BID given patient size. Continue Diprovan drip. Getting EEG today. HD per renal. Needs neurology consult however if patient is in status, needs to be transferred to an institution that can provide continuous EEG monitoring. Overll prognosis is very guarded to poor. Have not spoken to yet today. 09/10/20: Loaded with keppra and will start on Keppra BID. Needs EEG on therapy as well as OFF. If patient is in status, needs transfer to a location with continuous EEG capabilities. FiO2 has been weaned back down and is now at 60%, sats in the high 90's. HD per renal. Coags improving. Overall prognosis is guarded to poor. Spoke with on phone yesterday. Consult neurology tomorrow as not available on the weekend. Suggest checking for antibodies as he may be a candidate for convalsescent plasma. Per the , he was diagnosed with COVID on and spent 6 days inpatient at the [facility]. Remains positive now with multisystem organ failure. Explained to that outcome may not be good but need more time to assess. 09/09/20: EEG ordered on yesterday but not done. If done not read. Continue diprovan for now until EEG can be done or interpreted. State Coags but given his oozing from his vascath, will give Vitamin K and FFP. Patient is covid positive so agree with steroids. Not a candidate for remdesivir. Need to check for antibodies, may be a candidate for convalescent plasma. HD per renal. Given improvement in pH will stop bicarb drip. Feed patient. 1. Stop sedation 2. EEG 3. Needs neuro consult. 4. Art line placement 5. Stat repeat of labs, if renal function is truly that bad, will need renal consult. 6. Follow up COVID testing 7. Likely needs echo 8. Will place on bicarb drip. CCT 31 minutes. Subjective Date of service: 09/21/20 Principal diagnosis: Abnormal LFTs, s/p cardiac arrest, acute kidney injury with ATN Interval history: Patient on schedule for trach and peg today. No acute events overnight. Had HD on yesterday. Afebrile. NO seizures. Still unresponsive. Objective Vital Signs - 12hr 09/21/20 09/21/20 09/21/20 00:00 00:04 00:22 Temperature 98.4 F Pulse Rate 61 60 60 Respiratory 20 22 Rate Blood Pressure 143/66 143/66 143/69 O2 Sat by Pulse 100 99 99 Oximetry 09/21/20 09/21/20 09/21/20 00:25 01:00 02:00 Temperature Pulse Rate 61 62 60 Respiratory 25 H 21 Rate Blood Pressure 134/68 155/67 O2 Sat by Pulse 100 99 Oximetry 09/21/20 09/21/20 09/21/20 03:00 03:45 04:00 Temperature 97.9 F Pulse Rate 60 61 Respiratory 30 H 13 Rate Blood Pressure 143/70 144/64 O2 Sat by Pulse 100 99 Oximetry 09/21/20 09/21/20 09/21/20 04:17 04:40 04:50 Temperature Pulse Rate 61 60 59 L Respiratory 15 13 Rate Blood Pressure 149/69 145/68 149/69 O2 Sat by Pulse 100 100 100 Oximetry 09/21/20 09/21/20 09/21/20 05:00 05:10 05:20 Temperature Pulse Rate 60 59 L 60 Respiratory 19 18 18 Rate Blood Pressure 135/66 135/66 130/61 O2 Sat by Pulse 100 100 100 Oximetry 09/21/20 09/21/20 09/21/20 05:31 06:00 07:00 Temperature 98.1 F Pulse Rate 59 L Respiratory 18 17 Rate Blood Pressure 164/72 O2 Sat by Pulse 100 100 Oximetry 09/21/20 07:34 Temperature Pulse Rate 58 L Respiratory Rate Blood Pressure 155/68 O2 Sat by Pulse 100 Oximetry Constitutional: comatose, other (morbidly obese) Eyes: non-icteric ENT: other (orally intubated and sedated) Neck: supple Effort: normal Ascultation: Bilateral: diminished breath sounds Percussion: Bilateral: not dull Cardiovascular: other (bradycardic) Gastrointestinal: soft CBC and BMP: 09/21/20 05:00 09/21/20 05:00 ABG, PT/INR, D-dimer: ABG ABG pH 7.442 (7.320-7.450) 09/14/20 03:54 POC ABG pCO2 42.3 mmHg (32.0-48.0) 09/14/20 03:54 ABG pCO2 33.4 mm Hg 09/11/20 05:40 POC ABG pO2 71.1 mmHg (83-108) L 09/14/20 03:54 ABG pO2 112.1 mm Hg (80.0-90.0) H 09/11/20 05:40 POC ABG HCO3 28.2 09/14/20 03:54 ABG O2 Saturation 98.4 % (95.0-99.0) 09/11/20 05:40 PT/INR, D-dimer PT 16.1 Sec. (12.2-14.9) H 09/12/20 04:00 INR 1.31 (0.87-1.13) H 09/12/20 04:00 D-Dimer 8315.85 ng/mlDDU (0-234) H 09/07/20 14:00 Abnormal lab findings: Abnormal Labs 09/07/20 09/07/20 09/07/20 13:08 14:00 14:00 WBC 15.7 H RBC Hgb 10.2 L Hct 32.5 L MCHC 31 L RDW 17.5 H Lymph % (Auto) [place] % (Auto) Lymph # (Auto) [place] # (Auto) Seg Neutrophils % Seg Neuts % (Manual) 72.0 H Lymphocytes % (Manual) Monocytes % (Manual) 8.0 H Nucleated RBC % Seg Neutrophils # Seg Neutrophils # Man 11.3 H Lymphocytes # (Manual) Monocytes # (Manual) 1.3 H PT INR D-Dimer 8315.85 H ABG pH POC ABG pCO2 POC ABG pO2 ABG pO2 ABG HCO3 ABG Base Excess ABG Hemoglobin ABG Oxyhemoglobin ABG Sodium ABG Potassium ABG Chloride ABG Glucose Carboxyhemoglobin Sodium Potassium Chloride Carbon Dioxide BUN Creatinine Glucose POC Glucose Lactic Acid Calcium Phosphorus Ferritin Total Bilirubin Direct Bilirubin AST ALT Lactate Dehydrogenase Total Creatine Kinase Troponin T Total Protein Albumin Triglycerides Arterial Blood Glucose Arterial Blood Ionized Calcium Urine pH 8.0 H Urine Creatinine Salicylates Acetaminophen Coronavirus (PCR) 09/07/20 09/07/20 09/07/20 14:00 14:00 14:00 WBC RBC Hgb Hct MCHC RDW Lymph % (Auto) [place] % (Auto) Lymph # (Auto) [place] # (Auto) Seg Neutrophils % Seg Neuts % (Manual) Lymphocytes % (Manual) Monocytes % (Manual) Nucleated RBC % Seg Neutrophils # Seg Neutrophils # Man Lymphocytes # (Manual) Monocytes # (Manual) PT INR D-Dimer ABG pH POC ABG pCO2 POC ABG pO2 ABG pO2 ABG HCO3 ABG Base Excess ABG Hemoglobin ABG Oxyhemoglobin ABG Sodium ABG Potassium ABG Chloride ABG Glucose Carboxyhemoglobin Sodium Potassium Chloride Carbon Dioxide BUN Creatinine Glucose POC Glucose Lactic Acid 4.30 H* Calcium Phosphorus Ferritin > 2000.0 H Total Bilirubin Direct Bilirubin AST ALT Lactate Dehydrogenase 882 H Total Creatine Kinase 477 H Troponin T 0.076 H Total Protein Albumin Triglycerides Arterial Blood Glucose Arterial Blood Ionized Calcium Urine pH Urine Creatinine Salicylates Acetaminophen Coronavirus (PCR) 09/07/20 09/07/20 09/07/20 14:00 14:00 14:00 WBC RBC Hgb Hct MCHC RDW Lymph % (Auto) [place] % (Auto) Lymph # (Auto) [place] # (Auto) Seg Neutrophils % Seg Neuts % (Manual) Lymphocytes % (Manual) Monocytes % (Manual) Nucleated RBC % Seg Neutrophils # Seg Neutrophils # Man Lymphocytes # (Manual) Monocytes # (Manual) PT INR D-Dimer ABG pH POC ABG pCO2 POC ABG pO2 ABG pO2 ABG HCO3 ABG Base Excess ABG Hemoglobin ABG Oxyhemoglobin ABG Sodium ABG Potassium ABG Chloride ABG Glucose Carboxyhemoglobin Sodium Potassium Chloride Carbon Dioxide BUN Creatinine 1.8 H Glucose POC Glucose Lactic Acid Calcium Phosphorus Ferritin Total Bilirubin Direct Bilirubin AST 310 H ALT 339 H Lactate Dehydrogenase Total Creatine Kinase Troponin T Total Protein Albumin 3.6 L Triglycerides Arterial Blood Glucose Arterial Blood Ionized Calcium Urine pH Urine Creatinine Salicylates < 0.3 L Acetaminophen 5.0 L Coronavirus (PCR) 09/07/20 09/08/20 09/08/20 14:26 04:00 04:17 WBC RBC Hgb Hct MCHC RDW Lymph % (Auto) [place] % (Auto) Lymph # (Auto) [place] # (Auto) Seg Neutrophils % Seg Neuts % (Manual) Lymphocytes % (Manual) Monocytes % (Manual) Nucleated RBC % Seg Neutrophils # Seg Neutrophils # Man Lymphocytes # (Manual) Monocytes # (Manual) PT INR D-Dimer ABG pH 7.037 L 7.095 L POC ABG pCO2 92.4 H 68.0 H POC ABG pO2 130.8 H 43.5 L ABG pO2 ABG HCO3 ABG Base Excess ABG Hemoglobin 11.3 L 10.6 L ABG Oxyhemoglobin 70.8 L ABG Sodium ABG Potassium 7.0 H ABG Chloride 108.0 H ABG Glucose Carboxyhemoglobin 0.3 L Sodium Potassium 8.4 H* D Chloride Carbon Dioxide 17 L D BUN 38 H Creatinine 3.9 H D Glucose POC Glucose Lactic Acid Calcium 7.7 L D Phosphorus Ferritin Total Bilirubin Direct Bilirubin AST ALT Lactate Dehydrogenase Total Creatine Kinase Troponin T Total Protein Albumin Triglycerides Arterial Blood Glucose Arterial Blood Ionized Calcium 4.5 L Urine pH Urine Creatinine Salicylates Acetaminophen Coronavirus (PCR) 09/08/20 09/08/20 09/08/20 05:00 05:25 12:02 WBC RBC Hgb Hct MCHC RDW Lymph % (Auto) [place] % (Auto) Lymph # (Auto) [place] # (Auto) Seg Neutrophils % Seg Neuts % (Manual) Lymphocytes % (Manual) Monocytes % (Manual) Nucleated RBC % Seg Neutrophils # Seg Neutrophils # Man Lymphocytes # (Manual) Monocytes # (Manual) PT INR D-Dimer ABG pH 7.088 L POC ABG pCO2 69.1 H POC ABG pO2 35.2 L ABG pO2 ABG HCO3 ABG Base Excess ABG Hemoglobin 10.9 L ABG Oxyhemoglobin 57.1 L ABG Sodium ABG Potassium 7.0 H ABG Chloride 108.0 H ABG Glucose Carboxyhemoglobin 0.4 L Sodium Potassium 8.1 H* Chloride Carbon Dioxide 17 L BUN 38 H Creatinine 3.7 H Glucose POC Glucose Lactic Acid Calcium 8.0 L Phosphorus 8.00 H Ferritin Total Bilirubin Direct Bilirubin 0.5 H AST 3696 H ALT 3331 H Lactate Dehydrogenase Total Creatine Kinase Troponin T Total Protein Albumin 3.5 L Triglycerides Arterial Blood Glucose Arterial Blood Ionized Calcium 4.4 L Urine pH Urine Creatinine Salicylates Acetaminophen Coronavirus (PCR) 09/08/20 09/08/20 09/08/20 16:31 22:36 Unknown WBC RBC Hgb Hct MCHC RDW Lymph % (Auto) [place] % (Auto) Lymph # (Auto) [place] # (Auto) Seg Neutrophils % Seg Neuts % (Manual) Lymphocytes % (Manual) Monocytes % (Manual) Nucleated RBC % Seg Neutrophils # Seg Neutrophils # Man Lymphocytes # (Manual) Monocytes # (Manual) PT INR D-Dimer ABG pH POC ABG pCO2 POC ABG pO2 ABG pO2 ABG HCO3 ABG Base Excess ABG Hemoglobin ABG Oxyhemoglobin ABG Sodium ABG Potassium ABG Chloride ABG Glucose Carboxyhemoglobin Sodium Potassium 5.3 H D Chloride Carbon Dioxide BUN Creatinine Glucose POC Glucose 158 H Lactic Acid Calcium Phosphorus Ferritin Total Bilirubin Direct Bilirubin AST ALT Lactate Dehydrogenase Total Creatine Kinase Troponin T Total Protein Albumin Triglycerides Arterial Blood Glucose Arterial Blood Ionized Calcium Urine pH Urine Creatinine Salicylates Acetaminophen Coronavirus (PCR) Positive A 09/08/20 09/08/20 09/08/20 Unknown Unknown Unknown WBC 18.4 H RBC Hgb 10.1 L Hct 32.0 L MCHC RDW 18.2 H Lymph % (Auto) [place] % (Auto) Lymph # (Auto) [place] # (Auto) Seg Neutrophils % Seg Neuts % (Manual) 81.0 H Lymphocytes % (Manual) 2.0 L Monocytes % (Manual) Nucleated RBC % 1.0 H Seg Neutrophils # Seg Neutrophils # Man 14.9 H Lymphocytes # (Manual) 0.4 L Monocytes # (Manual) 1.1 H PT 21.2 H INR 1.83 H D-Dimer ABG pH POC ABG pCO2 POC ABG pO2 ABG pO2 ABG HCO3 ABG Base Excess ABG Hemoglobin ABG Oxyhemoglobin ABG Sodium ABG Potassium ABG Chloride ABG Glucose Carboxyhemoglobin Sodium Potassium Chloride Carbon Dioxide BUN Creatinine Glucose POC Glucose Lactic Acid Calcium Phosphorus Ferritin Total Bilirubin Direct Bilirubin AST ALT Lactate Dehydrogenase Total Creatine Kinase Troponin T Total Protein Albumin Triglycerides Arterial Blood Glucose Arterial Blood Ionized Calcium Urine pH Urine Creatinine 182.4 H Salicylates Acetaminophen Coronavirus (PCR) 09/09/20 09/09/20 09/09/20 03:14 04:20 04:20 WBC 16.3 H RBC 3.12 L Hgb 8.6 L Hct 26.8 L MCHC RDW 18.2 H Lymph % (Auto) 6.3 L [place] % (Auto) 8.8 H Lymph # (Auto) 1.0 L [place] # (Auto) 1.4 H Seg Neutrophils % 84.5 H Seg Neuts % (Manual) Lymphocytes % (Manual) Monocytes % (Manual) Nucleated RBC % Seg Neutrophils # 13.7 H Seg Neutrophils # Man Lymphocytes # (Manual) Monocytes # (Manual) PT INR D-Dimer ABG pH POC ABG pCO2 POC ABG pO2 148.5 H ABG pO2 ABG HCO3 ABG Base Excess ABG Hemoglobin 9.4 L ABG Oxyhemoglobin 98.8 H ABG Sodium 134.8 L ABG Potassium 5.0 H ABG Chloride ABG Glucose 222 H Carboxyhemoglobin 0.1 L Sodium Potassium 5.2 H Chloride Carbon Dioxide BUN 47 H Creatinine 4.3 H Glucose 211 H POC Glucose Lactic Acid Calcium 7.4 L Phosphorus Ferritin Total Bilirubin Direct Bilirubin AST 01855 H ALT 6206 H Lactate Dehydrogenase Total Creatine Kinase Troponin T Total Protein 5.6 L Albumin 3.0 L Triglycerides Arterial Blood Glucose 222 H Arterial Blood Ionized Calcium 3.8 L Urine pH Urine Creatinine Salicylates Acetaminophen Coronavirus (PCR) 09/09/20 09/09/20 09/09/20 10:00 12:23 18:22 WBC RBC Hgb Hct MCHC RDW Lymph % (Auto) [place] % (Auto) Lymph # (Auto) [place] # (Auto) Seg Neutrophils % Seg Neuts % (Manual) Lymphocytes % (Manual) Monocytes % (Manual) Nucleated RBC % Seg Neutrophils # Seg Neutrophils # Man Lymphocytes # (Manual) Monocytes # (Manual) PT 21.7 H INR 1.90 H D-Dimer ABG pH POC ABG pCO2 POC ABG pO2 ABG pO2 ABG HCO3 ABG Base Excess ABG Hemoglobin ABG Oxyhemoglobin ABG Sodium ABG Potassium ABG Chloride ABG Glucose Carboxyhemoglobin Sodium Potassium Chloride Carbon Dioxide BUN Creatinine Glucose POC Glucose 216 H 211 H Lactic Acid Calcium Phosphorus Ferritin Total Bilirubin Direct Bilirubin AST ALT Lactate Dehydrogenase Total Creatine Kinase Troponin T Total Protein Albumin Triglycerides Arterial Blood Glucose Arterial Blood Ionized Calcium Urine pH Urine Creatinine Salicylates Acetaminophen Coronavirus (PCR) 09/10/20 09/10/20 09/10/20 04:00 04:05 04:05 WBC 15.0 H RBC 3.06 L Hgb 8.6 L Hct 25.8 L MCHC RDW 18.0 H Lymph % (Auto) [place] % (Auto) Lymph # (Auto) [place] # (Auto) Seg Neutrophils % Seg Neuts % (Manual) 86.0 H Lymphocytes % (Manual) 6.0 L Monocytes % (Manual) 8.0 H Nucleated RBC % Seg Neutrophils # Seg Neutrophils # Man 12.9 H Lymphocytes # (Manual) 0.9 L Monocytes # (Manual) 1.2 H PT 18.4 H INR 1.54 H D-Dimer ABG pH POC ABG pCO2 POC ABG pO2 ABG pO2 ABG HCO3 ABG Base Excess ABG Hemoglobin ABG Oxyhemoglobin ABG Sodium ABG Potassium ABG Chloride ABG Glucose Carboxyhemoglobin Sodium 134 L Potassium Chloride 93.7 L Carbon Dioxide BUN 46 H Creatinine 3.6 H Glucose 275 H POC Glucose Lactic Acid Calcium 7.7 L Phosphorus Ferritin Total Bilirubin 1.30 H Direct Bilirubin AST 5899 H ALT 6440 H Lactate Dehydrogenase Total Creatine Kinase Troponin T Total Protein 5.9 L Albumin 3.3 L Triglycerides Arterial Blood Glucose Arterial Blood Ionized Calcium Urine pH Urine Creatinine Salicylates Acetaminophen Coronavirus (PCR) 09/10/20 09/10/20 09/10/20 04:35 12:06 17:42 WBC RBC Hgb Hct MCHC RDW Lymph % (Auto) [place] % (Auto) Lymph # (Auto) [place] # (Auto) Seg Neutrophils % Seg Neuts % (Manual) Lymphocytes % (Manual) Monocytes % (Manual) Nucleated RBC % Seg Neutrophils # Seg Neutrophils # Man Lymphocytes # (Manual) Monocytes # (Manual) PT INR D-Dimer ABG pH 7.464 H POC ABG pCO2 POC ABG pO2 ABG pO2 ABG HCO3 ABG Base Excess ABG Hemoglobin 9.9 L ABG Oxyhemoglobin ABG Sodium 131.6 L ABG Potassium ABG Chloride 97.0 L ABG Glucose 281 H Carboxyhemoglobin 0.1 L Sodium Potassium Chloride Carbon Dioxide BUN Creatinine Glucose POC Glucose 298 H 340 H Lactic Acid Calcium Phosphorus Ferritin Total Bilirubin Direct Bilirubin AST ALT Lactate Dehydrogenase Total Creatine Kinase Troponin T Total Protein Albumin Triglycerides Arterial Blood Glucose 281 H Arterial Blood Ionized Calcium 3.9 L Urine pH Urine Creatinine Salicylates Acetaminophen Coronavirus (PCR) 09/10/20 09/11/20 09/11/20 23:07 04:44 05:17 WBC RBC Hgb Hct MCHC RDW Lymph % (Auto) [place] % (Auto) Lymph # (Auto) [place] # (Auto) Seg Neutrophils % Seg Neuts % (Manual) Lymphocytes % (Manual) Monocytes % (Manual) Nucleated RBC % Seg Neutrophils # Seg Neutrophils # Man Lymphocytes # (Manual) Monocytes # (Manual) PT 16.9 H INR 1.39 H D-Dimer ABG pH POC ABG pCO2 POC ABG pO2 ABG pO2 ABG HCO3 ABG Base Excess ABG Hemoglobin ABG Oxyhemoglobin ABG Sodium ABG Potassium ABG Chloride ABG Glucose Carboxyhemoglobin Sodium Potassium Chloride Carbon Dioxide BUN Creatinine Glucose POC Glucose 367 H 416 H Lactic Acid Calcium Phosphorus Ferritin Total Bilirubin Direct Bilirubin AST ALT Lactate Dehydrogenase Total Creatine Kinase Troponin T Total Protein Albumin Triglycerides Arterial Blood Glucose Arterial Blood Ionized Calcium Urine pH Urine Creatinine Salicylates Acetaminophen Coronavirus (PCR) 09/11/20 09/11/20 09/11/20 05:40 12:01 17:50 WBC RBC Hgb Hct MCHC RDW Lymph % (Auto) [place] % (Auto) Lymph # (Auto) [place] # (Auto) Seg Neutrophils % Seg Neuts % (Manual) Lymphocytes % (Manual) Monocytes % (Manual) Nucleated RBC % Seg Neutrophils # Seg Neutrophils # Man Lymphocytes # (Manual) Monocytes # (Manual) PT INR D-Dimer ABG pH 7.543 H POC ABG pCO2 POC ABG pO2 ABG pO2 112.1 H ABG HCO3 28.1 H ABG Base Excess 5.4 H ABG Hemoglobin 8.4 L ABG Oxyhemoglobin ABG Sodium ABG Potassium ABG Chloride ABG Glucose Carboxyhemoglobin Sodium Potassium Chloride Carbon Dioxide BUN Creatinine Glucose POC Glucose 418 H 404 H Lactic Acid Calcium Phosphorus Ferritin Total Bilirubin Direct Bilirubin AST ALT Lactate Dehydrogenase Total Creatine Kinase Troponin T Total Protein Albumin Triglycerides Arterial Blood Glucose Arterial Blood Ionized Calcium Urine pH Urine Creatinine Salicylates Acetaminophen Coronavirus (PCR) 09/11/20 09/11/20 09/12/20 23:10 23:43 03:15 WBC RBC Hgb Hct MCHC RDW Lymph % (Auto) [place] % (Auto) Lymph # (Auto) [place] # (Auto) Seg Neutrophils % Seg Neuts % (Manual) Lymphocytes % (Manual) Monocytes % (Manual) Nucleated RBC % Seg Neutrophils # Seg Neutrophils # Man Lymphocytes # (Manual) Monocytes # (Manual) PT INR D-Dimer ABG pH POC ABG pCO2 POC ABG pO2 ABG pO2 ABG HCO3 ABG Base Excess ABG Hemoglobin ABG Oxyhemoglobin ABG Sodium ABG Potassium ABG Chloride ABG Glucose Carboxyhemoglobin Sodium 135 L Potassium Chloride 92.3 L Carbon Dioxide BUN 62 H Creatinine 3.7 H Glucose 406 H POC Glucose 372 H 359 H Lactic Acid Calcium Phosphorus Ferritin Total Bilirubin Direct Bilirubin AST 687 H ALT 3701 H Lactate Dehydrogenase Total Creatine Kinase Troponin T Total Protein 5.8 L Albumin 3.1 L Triglycerides Arterial Blood Glucose Arterial Blood Ionized Calcium Urine pH Urine Creatinine Salicylates Acetaminophen Coronavirus (PCR) 09/12/20 09/12/20 09/12/20 03:18 04:00 04:00 WBC 13.7 H RBC 3.30 L Hgb 9.3 L Hct 27.6 L MCHC RDW 17.5 H Lymph % (Auto) [place] % (Auto) Lymph # (Auto) [place] # (Auto) Seg Neutrophils % Seg Neuts % (Manual) 76.0 H Lymphocytes % (Manual) 11.0 L Monocytes % (Manual) 13.0 H Nucleated RBC % Seg Neutrophils # Seg Neutrophils # Man 10.4 H Lymphocytes # (Manual) Monocytes # (Manual) 1.8 H PT 16.1 H INR 1.31 H D-Dimer ABG pH 7.558 H POC ABG pCO2 POC ABG pO2 74.7 L ABG pO2 ABG HCO3 ABG Base Excess ABG Hemoglobin 9.7 L ABG Oxyhemoglobin ABG Sodium 132.4 L ABG Potassium ABG Chloride 95.0 L ABG Glucose 437 H Carboxyhemoglobin Sodium Potassium Chloride Carbon Dioxide BUN Creatinine Glucose POC Glucose Lactic Acid Calcium Phosphorus Ferritin Total Bilirubin Direct Bilirubin AST ALT Lactate Dehydrogenase Total Creatine Kinase Troponin T Total Protein Albumin Triglycerides Arterial Blood Glucose 437 H Arterial Blood Ionized Calcium 4.3 L Urine pH Urine Creatinine Salicylates Acetaminophen Coronavirus (PCR) 09/12/20 09/12/20 09/12/20 04:21 05:20 06:37 WBC RBC Hgb Hct MCHC RDW Lymph % (Auto) [place] % (Auto) Lymph # (Auto) [place] # (Auto) Seg Neutrophils % Seg Neuts % (Manual) Lymphocytes % (Manual) Monocytes % (Manual) Nucleated RBC % Seg Neutrophils # Seg Neutrophils # Man Lymphocytes # (Manual) Monocytes # (Manual) PT INR D-Dimer ABG pH POC ABG pCO2 POC ABG pO2 ABG pO2 ABG HCO3 ABG Base Excess ABG Hemoglobin ABG Oxyhemoglobin ABG Sodium ABG Potassium ABG Chloride ABG Glucose Carboxyhemoglobin Sodium Potassium Chloride Carbon Dioxide BUN Creatinine Glucose POC Glucose 417 H 397 H 370 H Lactic Acid Calcium Phosphorus Ferritin Total Bilirubin Direct Bilirubin AST ALT Lactate Dehydrogenase Total Creatine Kinase Troponin T Total Protein Albumin Triglycerides Arterial Blood Glucose Arterial Blood Ionized Calcium Urine pH Urine Creatinine Salicylates Acetaminophen Coronavirus (PCR) 09/12/20 09/12/20 09/12/20 11:56 17:14 21:52 WBC RBC Hgb Hct MCHC RDW Lymph % (Auto) [place] % (Auto) Lymph # (Auto) [place] # (Auto) Seg Neutrophils % Seg Neuts % (Manual) Lymphocytes % (Manual) Monocytes % (Manual) Nucleated RBC % Seg Neutrophils # Seg Neutrophils # Man Lymphocytes # (Manual) Monocytes # (Manual) PT INR D-Dimer ABG pH POC ABG pCO2 POC ABG pO2 ABG pO2 ABG HCO3 ABG Base Excess ABG Hemoglobin ABG Oxyhemoglobin ABG Sodium ABG Potassium ABG Chloride ABG Glucose Carboxyhemoglobin Sodium Potassium Chloride Carbon Dioxide BUN Creatinine Glucose POC Glucose 341 H 325 H 285 H Lactic Acid Calcium Phosphorus Ferritin Total Bilirubin Direct Bilirubin AST ALT Lactate Dehydrogenase Total Creatine Kinase Troponin T Total Protein Albumin Triglycerides Arterial Blood Glucose Arterial Blood Ionized Calcium Urine pH Urine Creatinine Salicylates Acetaminophen Coronavirus (PCR) 09/12/20 09/12/20 09/12/20 23:39 Unknown Unknown WBC RBC Hgb Hct MCHC RDW Lymph % (Auto) [place] % (Auto) Lymph # (Auto) [place] # (Auto) Seg Neutrophils % Seg Neuts % (Manual) Lymphocytes % (Manual) Monocytes % (Manual) Nucleated RBC % Seg Neutrophils # Seg Neutrophils # Man Lymphocytes # (Manual) Monocytes # (Manual) PT INR D-Dimer ABG pH POC ABG pCO2 POC ABG pO2 ABG pO2 ABG HCO3 ABG Base Excess ABG Hemoglobin ABG Oxyhemoglobin ABG Sodium ABG Potassium ABG Chloride ABG Glucose Carboxyhemoglobin Sodium 135 L Potassium Chloride 92.2 L Carbon Dioxide BUN 65 H Creatinine 3.5 H Glucose 418 H POC Glucose 338 H Lactic Acid Calcium Phosphorus Ferritin Total Bilirubin Direct Bilirubin AST 553 H ALT 3453 H Lactate Dehydrogenase Total Creatine Kinase Troponin T Total Protein 5.9 L Albumin 3.0 L Triglycerides 220 H Arterial Blood Glucose Arterial Blood Ionized Calcium Urine pH Urine Creatinine Salicylates Acetaminophen Coronavirus (PCR) 09/13/20 09/13/20 09/13/20 04:47 05:24 10:50 WBC RBC Hgb Hct MCHC RDW Lymph % (Auto) [place] % (Auto) Lymph # (Auto) [place] # (Auto) Seg Neutrophils % Seg Neuts % (Manual) Lymphocytes % (Manual) Monocytes % (Manual) Nucleated RBC % Seg Neutrophils # Seg Neutrophils # Man Lymphocytes # (Manual) Monocytes # (Manual) PT INR D-Dimer ABG pH 7.571 H POC ABG pCO2 POC ABG pO2 69.0 L ABG pO2 ABG HCO3 ABG Base Excess ABG Hemoglobin 10.1 L ABG Oxyhemoglobin 93.2 L ABG Sodium 134.0 L ABG Potassium ABG Chloride ABG Glucose 365 H Carboxyhemoglobin 0.4 L Sodium Potassium Chloride 96.6 L Carbon Dioxide 32 H BUN 76 H Creatinine 3.1 H Glucose 395 H POC Glucose 329 H Lactic Acid Calcium Phosphorus Ferritin Total Bilirubin Direct Bilirubin AST ALT Lactate Dehydrogenase Total Creatine Kinase Troponin T Total Protein Albumin Triglycerides Arterial Blood Glucose 365 H Arterial Blood Ionized Calcium Urine pH Urine Creatinine Salicylates Acetaminophen Coronavirus (PCR) 09/13/20 09/13/20 09/13/20 11:39 17:48 23:35 WBC RBC Hgb Hct MCHC RDW Lymph % (Auto) [place] % (Auto) Lymph # (Auto) [place] # (Auto) Seg Neutrophils % Seg Neuts % (Manual) Lymphocytes % (Manual) Monocytes % (Manual) Nucleated RBC % Seg Neutrophils # Seg Neutrophils # Man Lymphocytes # (Manual) Monocytes # (Manual) PT INR D-Dimer ABG pH POC ABG pCO2 POC ABG pO2 ABG pO2 ABG HCO3 ABG Base Excess ABG Hemoglobin ABG Oxyhemoglobin ABG Sodium ABG Potassium ABG Chloride ABG Glucose Carboxyhemoglobin Sodium Potassium Chloride Carbon Dioxide BUN Creatinine Glucose POC Glucose 344 H 286 H 223 H Lactic Acid Calcium Phosphorus Ferritin Total Bilirubin Direct Bilirubin AST ALT Lactate Dehydrogenase Total Creatine Kinase Troponin T Total Protein Albumin Triglycerides Arterial Blood Glucose Arterial Blood Ionized Calcium Urine pH Urine Creatinine Salicylates Acetaminophen Coronavirus (PCR) 09/14/20 09/14/20 09/14/20 03:54 05:34 10:27 WBC RBC Hgb Hct MCHC RDW Lymph % (Auto) [place] % (Auto) Lymph # (Auto) [place] # (Auto) Seg Neutrophils % Seg Neuts % (Manual) Lymphocytes % (Manual) Monocytes % (Manual) Nucleated RBC % Seg Neutrophils # Seg Neutrophils # Man Lymphocytes # (Manual) Monocytes # (Manual) PT INR D-Dimer ABG pH POC ABG pCO2 POC ABG pO2 71.1 L ABG pO2 ABG HCO3 ABG Base Excess ABG Hemoglobin 10.3 L ABG Oxyhemoglobin ABG Sodium 135.2 L ABG Potassium ABG Chloride ABG Glucose 281 H Carboxyhemoglobin Sodium Potassium Chloride 96.6 L Carbon Dioxide BUN 100 H Creatinine 3.9 H Glucose 286 H POC Glucose 252 H Lactic Acid Calcium Phosphorus Ferritin Total Bilirubin Direct Bilirubin AST 145 H ALT 1400 H Lactate Dehydrogenase Total Creatine Kinase Troponin T Total Protein 5.6 L Albumin 2.9 L Triglycerides Arterial Blood Glucose 281 H Arterial Blood Ionized Calcium Urine pH Urine Creatinine Salicylates Acetaminophen Coronavirus (PCR) 09/14/20 09/14/20 09/14/20 11:38 17:52 23:07 WBC RBC Hgb Hct MCHC RDW Lymph % (Auto) [place] % (Auto) Lymph # (Auto) [place] # (Auto) Seg Neutrophils % Seg Neuts % (Manual) Lymphocytes % (Manual) Monocytes % (Manual) Nucleated RBC % Seg Neutrophils # Seg Neutrophils # Man Lymphocytes # (Manual) Monocytes # (Manual) PT INR D-Dimer ABG pH POC ABG pCO2 POC ABG pO2 ABG pO2 ABG HCO3 ABG Base Excess ABG Hemoglobin ABG Oxyhemoglobin ABG Sodium ABG Potassium ABG Chloride ABG Glucose Carboxyhemoglobin Sodium Potassium Chloride Carbon Dioxide BUN Creatinine Glucose POC Glucose 247 H 247 H 256 H Lactic Acid Calcium Phosphorus Ferritin Total Bilirubin Direct Bilirubin AST ALT Lactate Dehydrogenase Total Creatine Kinase Troponin T Total Protein Albumin Triglycerides Arterial Blood Glucose Arterial Blood Ionized Calcium Urine pH Urine Creatinine Salicylates Acetaminophen Coronavirus (PCR) 09/15/20 09/15/20 09/15/20 04:54 11:24 17:48 WBC RBC Hgb Hct MCHC RDW Lymph % (Auto) [place] % (Auto) Lymph # (Auto) [place] # (Auto) Seg Neutrophils % Seg Neuts % (Manual) Lymphocytes % (Manual) Monocytes % (Manual) Nucleated RBC % Seg Neutrophils # Seg Neutrophils # Man Lymphocytes # (Manual) Monocytes # (Manual) PT INR D-Dimer ABG pH POC ABG pCO2 POC ABG pO2 ABG pO2 ABG HCO3 ABG Base Excess ABG Hemoglobin ABG Oxyhemoglobin ABG Sodium ABG Potassium ABG Chloride ABG Glucose Carboxyhemoglobin Sodium Potassium Chloride Carbon Dioxide BUN Creatinine Glucose POC Glucose 271 H 228 H 254 H Lactic Acid Calcium Phosphorus Ferritin Total Bilirubin Direct Bilirubin AST ALT Lactate Dehydrogenase Total Creatine Kinase Troponin T Total Protein Albumin Triglycerides Arterial Blood Glucose Arterial Blood Ionized Calcium Urine pH Urine Creatinine Salicylates Acetaminophen Coronavirus (PCR) 09/15/20 09/15/20 09/15/20 19:20 19:20 23:13 WBC 27.3 H RBC 3.16 L Hgb 8.8 L Hct 27.0 L MCHC RDW 19.7 H Lymph % (Auto) [place] % (Auto) Lymph # (Auto) [place] # (Auto) Seg Neutrophils % Seg Neuts % (Manual) 81.0 H Lymphocytes % (Manual) 9.0 L Monocytes % (Manual) 10.0 H Nucleated RBC % Seg Neutrophils # Seg Neutrophils # Man 22.1 H Lymphocytes # (Manual) Monocytes # (Manual) 2.7 H PT INR D-Dimer ABG pH POC ABG pCO2 POC ABG pO2 ABG pO2 ABG HCO3 ABG Base Excess ABG Hemoglobin ABG Oxyhemoglobin ABG Sodium ABG Potassium ABG Chloride ABG Glucose Carboxyhemoglobin Sodium Potassium Chloride Carbon Dioxide BUN 68 H Creatinine 2.8 H Glucose 288 H POC Glucose 259 H Lactic Acid Calcium Phosphorus Ferritin Total Bilirubin Direct Bilirubin AST ALT Lactate Dehydrogenase Total Creatine Kinase Troponin T Total Protein Albumin Triglycerides Arterial Blood Glucose Arterial Blood Ionized Calcium Urine pH Urine Creatinine Salicylates Acetaminophen Coronavirus (PCR) 09/16/20 09/16/20 09/16/20 05:27 09:40 11:48 WBC RBC Hgb Hct MCHC RDW Lymph % (Auto) [place] % (Auto) Lymph # (Auto) [place] # (Auto) Seg Neutrophils % Seg Neuts % (Manual) Lymphocytes % (Manual) Monocytes % (Manual) Nucleated RBC % Seg Neutrophils # Seg Neutrophils # Man Lymphocytes # (Manual) Monocytes # (Manual) PT INR D-Dimer ABG pH POC ABG pCO2 POC ABG pO2 ABG pO2 ABG HCO3 ABG Base Excess ABG Hemoglobin ABG Oxyhemoglobin ABG Sodium ABG Potassium ABG Chloride ABG Glucose Carboxyhemoglobin Sodium Potassium Chloride Carbon Dioxide 31 H BUN 77 H Creatinine 2.9 H Glucose 250 H POC Glucose 275 H 234 H Lactic Acid Calcium Phosphorus Ferritin Total Bilirubin Direct Bilirubin AST ALT Lactate Dehydrogenase Total Creatine Kinase Troponin T Total Protein Albumin Triglycerides Arterial Blood Glucose Arterial Blood Ionized Calcium Urine pH Urine Creatinine Salicylates Acetaminophen Coronavirus (PCR) 09/16/20 09/16/20 09/17/20 17:40 23:23 00:01 WBC RBC Hgb Hct MCHC RDW Lymph % (Auto) [place] % (Auto) Lymph # (Auto) [place] # (Auto) Seg Neutrophils % Seg Neuts % (Manual) Lymphocytes % (Manual) Monocytes % (Manual) Nucleated RBC % Seg Neutrophils # Seg Neutrophils # Man Lymphocytes # (Manual) Monocytes # (Manual) PT INR D-Dimer ABG pH POC ABG pCO2 POC ABG pO2 ABG pO2 ABG HCO3 ABG Base Excess ABG Hemoglobin ABG Oxyhemoglobin ABG Sodium ABG Potassium ABG Chloride ABG Glucose Carboxyhemoglobin Sodium Potassium Chloride Carbon Dioxide BUN Creatinine Glucose POC Glucose 172 H 161 H Lactic Acid 2.10 H* Calcium Phosphorus Ferritin Total Bilirubin Direct Bilirubin AST ALT Lactate Dehydrogenase Total Creatine Kinase Troponin T Total Protein Albumin Triglycerides Arterial Blood Glucose Arterial Blood Ionized Calcium Urine pH Urine Creatinine Salicylates Acetaminophen Coronavirus (PCR) 09/17/20 09/17/20 09/17/20 04:00 04:00 05:09 WBC 19.5 H RBC 3.03 L Hgb 8.6 L Hct 26.3 L MCHC RDW 19.4 H Lymph % (Auto) 8.7 L [place] % (Auto) 13.7 H Lymph # (Auto) [place] # (Auto) 2.7 H Seg Neutrophils % 76.9 H Seg Neuts % (Manual) Lymphocytes % (Manual) Monocytes % (Manual) Nucleated RBC % Seg Neutrophils # 15.0 H Seg Neutrophils # Man Lymphocytes # (Manual) Monocytes # (Manual) PT INR D-Dimer ABG pH POC ABG pCO2 POC ABG pO2 ABG pO2 ABG HCO3 ABG Base Excess ABG Hemoglobin ABG Oxyhemoglobin ABG Sodium ABG Potassium ABG Chloride ABG Glucose Carboxyhemoglobin Sodium 146 H Potassium 3.1 L Chloride Carbon Dioxide BUN 79 H Creatinine 2.6 H Glucose 122 H POC Glucose 116 H Lactic Acid Calcium Phosphorus Ferritin Total Bilirubin Direct Bilirubin AST 64 H ALT 516 H Lactate Dehydrogenase Total Creatine Kinase Troponin T Total Protein 5.7 L Albumin 2.8 L Triglycerides Arterial Blood Glucose Arterial Blood Ionized Calcium Urine pH Urine Creatinine Salicylates Acetaminophen Coronavirus (PCR) 09/17/20 09/17/20 09/18/20 13:52 17:38 05:16 WBC RBC Hgb Hct MCHC RDW Lymph % (Auto) [place] % (Auto) Lymph # (Auto) [place] # (Auto) Seg Neutrophils % Seg Neuts % (Manual) Lymphocytes % (Manual) Monocytes % (Manual) Nucleated RBC % Seg Neutrophils # Seg Neutrophils # Man Lymphocytes # (Manual) Monocytes # (Manual) PT INR D-Dimer ABG pH POC ABG pCO2 POC ABG pO2 ABG pO2 ABG HCO3 ABG Base Excess ABG Hemoglobin ABG Oxyhemoglobin ABG Sodium ABG Potassium ABG Chloride ABG Glucose Carboxyhemoglobin Sodium Potassium Chloride Carbon Dioxide BUN Creatinine Glucose POC Glucose 68 L 126 H Lactic Acid 2.90 H* Calcium Phosphorus Ferritin Total Bilirubin Direct Bilirubin AST ALT Lactate Dehydrogenase Total Creatine Kinase Troponin T Total Protein Albumin Triglycerides Arterial Blood Glucose Arterial Blood Ionized Calcium Urine pH Urine Creatinine Salicylates Acetaminophen Coronavirus (PCR) 09/18/20 09/18/20 09/18/20 05:30 05:30 11:42 WBC 18.2 H RBC 3.18 L Hgb 9.0 L Hct 27.2 L MCHC RDW 18.8 H Lymph % (Auto) [place] % (Auto) Lymph # (Auto) [place] # (Auto) Seg Neutrophils % Seg Neuts % (Manual) Lymphocytes % (Manual) Monocytes % (Manual) Nucleated RBC % Seg Neutrophils # Seg Neutrophils # Man Lymphocytes # (Manual) Monocytes # (Manual) PT INR D-Dimer ABG pH POC ABG pCO2 POC ABG pO2 ABG pO2 ABG HCO3 ABG Base Excess ABG Hemoglobin ABG Oxyhemoglobin ABG Sodium ABG Potassium ABG Chloride ABG Glucose Carboxyhemoglobin Sodium Potassium 3.1 L Chloride Carbon Dioxide BUN 73 H Creatinine 2.6 H Glucose 154 H POC Glucose 140 H Lactic Acid Calcium Phosphorus Ferritin Total Bilirubin Direct Bilirubin AST ALT Lactate Dehydrogenase Total Creatine Kinase Troponin T Total Protein Albumin Triglycerides Arterial Blood Glucose Arterial Blood Ionized Calcium Urine pH Urine Creatinine Salicylates Acetaminophen Coronavirus (PCR) 09/18/20 09/18/20 09/19/20 18:15 23:37 05:13 WBC 22.8 H RBC 3.30 L Hgb 9.2 L Hct 28.1 L MCHC RDW 18.2 H Lymph % (Auto) [place] % (Auto) Lymph # (Auto) [place] # (Auto) Seg Neutrophils % Seg Neuts % (Manual) 87.0 H Lymphocytes % (Manual) 5.0 L Monocytes % (Manual) Nucleated RBC % Seg Neutrophils # Seg Neutrophils # Man 19.8 H Lymphocytes # (Manual) 1.1 L Monocytes # (Manual) 1.6 H PT INR D-Dimer ABG pH POC ABG pCO2 POC ABG pO2 ABG pO2 ABG HCO3 ABG Base Excess ABG Hemoglobin ABG Oxyhemoglobin ABG Sodium ABG Potassium ABG Chloride ABG Glucose Carboxyhemoglobin Sodium Potassium Chloride Carbon Dioxide BUN Creatinine Glucose POC Glucose 149 H 153 H Lactic Acid Calcium Phosphorus Ferritin Total Bilirubin Direct Bilirubin AST ALT Lactate Dehydrogenase Total Creatine Kinase Troponin T Total Protein Albumin Triglycerides Arterial Blood Glucose Arterial Blood Ionized Calcium Urine pH Urine Creatinine Salicylates Acetaminophen Coronavirus (PCR) 09/19/20 09/19/20 09/19/20 05:13 05:25 11:56 WBC RBC Hgb Hct MCHC RDW Lymph % (Auto) [place] % (Auto) Lymph # (Auto) [place] # (Auto) Seg Neutrophils % Seg Neuts % (Manual) Lymphocytes % (Manual) Monocytes % (Manual) Nucleated RBC % Seg Neutrophils # Seg Neutrophils # Man Lymphocytes # (Manual) Monocytes # (Manual) PT INR D-Dimer ABG pH POC ABG pCO2 POC ABG pO2 ABG pO2 ABG HCO3 ABG Base Excess ABG Hemoglobin ABG Oxyhemoglobin ABG Sodium ABG Potassium ABG Chloride ABG Glucose Carboxyhemoglobin Sodium Potassium Chloride Carbon Dioxide BUN 55 H Creatinine 2.3 H Glucose 196 H POC Glucose 168 H 137 H Lactic Acid Calcium Phosphorus Ferritin Total Bilirubin Direct Bilirubin AST ALT Lactate Dehydrogenase Total Creatine Kinase Troponin T Total Protein Albumin Triglycerides Arterial Blood Glucose Arterial Blood Ionized Calcium Urine pH Urine Creatinine Salicylates Acetaminophen Coronavirus (PCR) 09/19/20 09/19/20 09/20/20 17:43 23:43 05:02 WBC RBC Hgb Hct MCHC RDW Lymph % (Auto) [place] % (Auto) Lymph # (Auto) [place] # (Auto) Seg Neutrophils % Seg Neuts % (Manual) Lymphocytes % (Manual) Monocytes % (Manual) Nucleated RBC % Seg Neutrophils # Seg Neutrophils # Man Lymphocytes # (Manual) Monocytes # (Manual) PT INR D-Dimer ABG pH POC ABG pCO2 POC ABG pO2 ABG pO2 ABG HCO3 ABG Base Excess ABG Hemoglobin ABG Oxyhemoglobin ABG Sodium ABG Potassium ABG Chloride ABG Glucose Carboxyhemoglobin Sodium Potassium Chloride Carbon Dioxide BUN Creatinine Glucose POC Glucose 114 H 136 H 163 H Lactic Acid Calcium Phosphorus Ferritin Total Bilirubin Direct Bilirubin AST ALT Lactate Dehydrogenase Total Creatine Kinase Troponin T Total Protein Albumin Triglycerides Arterial Blood Glucose Arterial Blood Ionized Calcium Urine pH Urine Creatinine Salicylates Acetaminophen Coronavirus (PCR) 09/20/20 09/20/20 09/20/20 05:36 05:36 11:10 WBC 20.1 H RBC 3.07 L Hgb 8.5 L Hct 26.4 L MCHC RDW 18.6 H Lymph % (Auto) 9.6 L [place] % (Auto) 9.6 H Lymph # (Auto) [place] # (Auto) 1.9 H Seg Neutrophils % 79.0 H Seg Neuts % (Manual) Lymphocytes % (Manual) Monocytes % (Manual) Nucleated RBC % Seg Neutrophils # 15.9 H Seg Neutrophils # Man Lymphocytes # (Manual) Monocytes # (Manual) PT INR D-Dimer ABG pH POC ABG pCO2 POC ABG pO2 ABG pO2 ABG HCO3 ABG Base Excess ABG Hemoglobin ABG Oxyhemoglobin ABG Sodium ABG Potassium ABG Chloride ABG Glucose Carboxyhemoglobin Sodium Potassium 3.3 L Chloride Carbon Dioxide BUN 76 H Creatinine 3.6 H D Glucose 213 H POC Glucose 167 H Lactic Acid Calcium Phosphorus Ferritin Total Bilirubin Direct Bilirubin AST ALT Lactate Dehydrogenase Total Creatine Kinase Troponin T Total Protein Albumin Triglycerides Arterial Blood Glucose Arterial Blood Ionized Calcium Urine pH Urine Creatinine Salicylates Acetaminophen Coronavirus (PCR) 09/20/20 09/20/20 09/20/20 14:02 17:24 23:30 WBC RBC Hgb Hct MCHC RDW Lymph % (Auto) [place] % (Auto) Lymph # (Auto) [place] # (Auto) Seg Neutrophils % Seg Neuts % (Manual) Lymphocytes % (Manual) Monocytes % (Manual) Nucleated RBC % Seg Neutrophils # Seg Neutrophils # Man Lymphocytes # (Manual) Monocytes # (Manual) PT INR D-Dimer ABG pH POC ABG pCO2 POC ABG pO2 ABG pO2 ABG HCO3 ABG Base Excess ABG Hemoglobin ABG Oxyhemoglobin ABG Sodium ABG Potassium ABG Chloride ABG Glucose Carboxyhemoglobin Sodium Potassium Chloride Carbon Dioxide BUN Creatinine Glucose POC Glucose 164 H 146 H 147 H Lactic Acid Calcium Phosphorus Ferritin Total Bilirubin Direct Bilirubin AST ALT Lactate Dehydrogenase Total Creatine Kinase Troponin T Total Protein Albumin Triglycerides Arterial Blood Glucose Arterial Blood Ionized Calcium Urine pH Urine Creatinine Salicylates Acetaminophen Coronavirus (PCR) 09/21/20 09/21/20 09/21/20 05:00 05:00 05:24 WBC 17.4 H RBC 2.95 L Hgb 8.3 L Hct 25.8 L MCHC RDW 19.3 H Lymph % (Auto) 11.1 L [place] % (Auto) 11.1 H Lymph # (Auto) [place] # (Auto) 1.9 H Seg Neutrophils % 75.9 H Seg Neuts % (Manual) Lymphocytes % (Manual) Monocytes % (Manual) Nucleated RBC % Seg Neutrophils # 13.2 H Seg Neutrophils # Man Lymphocytes # (Manual) Monocytes # (Manual) PT INR D-Dimer ABG pH POC ABG pCO2 POC ABG pO2 ABG pO2 ABG HCO3 ABG Base Excess ABG Hemoglobin ABG Oxyhemoglobin ABG Sodium ABG Potassium ABG Chloride ABG Glucose Carboxyhemoglobin Sodium Potassium Chloride Carbon Dioxide BUN 60 H Creatinine 3.5 H Glucose 185 H POC Glucose 139 H Lactic Acid Calcium Phosphorus Ferritin Total Bilirubin Direct Bilirubin AST ALT Lactate Dehydrogenase Total Creatine Kinase Troponin T Total Protein Albumin Triglycerides Arterial Blood Glucose Arterial Blood Ionized Calcium Urine pH Urine Creatinine Salicylates Acetaminophen Coronavirus (PCR)
[2020-09-21] MEDS ORDERED: ROCURONIUM 50 MG/5 ML INJ IV ONE (13:54)
[2020-09-21] MEDS ORDERED: MINERAL OIL/PETROLATUM, WHITE OPHTH OINT 3.5 GM ONE (15:30)
--- NOTE | 2020-09-21 15:46 | Post Operative Note ---
Pre-op diagnosis: vent dependence Post-op diagnosis: same Findings: Good placement of tracheostomy under flex bronchoscopy Good placement of PEG with bumper at 2cm at the skin Procedure: Percutaneous tracheostomy, fiberoptic bronchoscopy, PEG tube placement Anesthesia: LIBRADO, local Surgeon: JUANITA FONTAINE Triage Technician: MAIKOL MORTON Estimated blood loss: minimal Pathology: none Condition: stable Disposition: ICU
--- NOTE | 2020-09-21 15:56 | Anesthesia Day of Surgery ---
Anesthesia Day of Surgery - Day of Surgery Patient Examined: Yes Patient H&P Reviewed: Yes Patient is NPO: Yes
--- NOTE | 2020-09-21 16:00 | Anesthesia Consultation ---
Anesthesia Consult and Med Hx Date of service: 09/21/20 - Airway Intubation Access Assessment: Good (Already intubated) - Pre-Operative Health Status ASA Pre-Surgery Classification: ASA4 Proposed Anesthetic Plan: General - Pulmonary Hx Respiratory Symptoms: Yes (Hypoxic respiratory failure.COVID Negative) - Cardiovascular System Hx Hypertension: Yes Hx Heart Attack/AMI: Yes (OOH cardiac arrest) - Central Nervous System Hx Seizures: Yes (anoxic encephalopathy, brain injury) - Endocrine Hx Renal Disease: Yes (Nonoliguric RYAN secondary to ATN) Hx Liver Disease: Yes - Other Systems Hx Obesity: Yes - Additional Comments Anesthesia Medical History Comments: Late entry; was done preoperatively. Consent obtained from . POOR prognosis
--- NOTE | 2020-09-21 16:01 | Post Anesthesia Evaluation ---
- Post Anesthesia Evaluation Patient Participated: No Airway Patent: Yes Stable Respiratory Function: Yes Nausea/Vomiting: No Temp > 96.8F: Yes Pain Manageable: Yes Adequeate Hydration: Yes Anesthesia Complications: No Block Receding Appropriately: Not Applicable Patient on Ventilator: Yes
--- NOTE | 2020-09-21 16:16 | XRay Report ---
CHEST 1 VIEW INDICATION: s/p trach. COMPARISON: 09/17/2020 FINDINGS: Support devices: The endotracheal tube and nasogastric tube have been removed. A tracheostomy placed which appears in good position at the level of the clavicles. Heart: Within normal limits. Lungs/Pleura: No acute air space or interstitial disease. No pneumothorax or pneumomediastinum identi fied. Additional findings: None. IMPRESSION: No acute findings. Signer Name: Korey Arnett Jr, MD Signed: 09/21/2020 4:11 PM Workstation Name: [id number]
--- NOTE | 2020-09-21 17:13 | Operative Report ---
Operative Report Operative Report: Date: 09/21/20 15:45 Initialization Date: 09/21/20 15:45 Pre-op diagnosis: vent dependence Post-op diagnosis: same Findings: Good placement of tracheostomy under flex bronchoscopy Good placement of PEG with bumper at 2cm at the skin Procedure: Percutaneous tracheostomy, fiberoptic bronchoscopy, PEG tube placement Anesthesia: LIBRADO, local Surgeon: JUANITA FONTAINE Teacher Education Director: MAIKOL MORTON Estimated blood loss: minimal Pathology: none Condition: stable Disposition: ICU HPI and indication: Patient is a 65-year-old malewho was brought to the emergency room on 09/07/2020 for cardiopulmonary arrest. Patient was found to be Covid positive and treated appropriately for Covid pneumonia. His most recent Covid test was negative. Patient unable to be safely extubated and therefore tracheostomy was recommended. The indications for tracheostomy and PEG tube placement were discussed with the patient spouse/NOK. All risk, benefits, alternatives were discussed and questions answered. Consent obtained to proceed. Procedure in detail: The patient was identified in the ICU and brought down to the operating room and positioned in supine position in the hospital bed. Consent was verified on the chart timeout was performed. The neck was prepped and draped in usual sterile fashion. Anesthesia was administered. A shoulder roll was placed, with the patient's neck mildly hyperextended. Anesthesia provider performed fiberoptic bronchoscopy throughout the entire procedure. The fiberoptic bronchoscope was inserted through the endotracheal tube via the adapter and the trachea examined. The trachea was unremarkable and the ET tube was approximately 3 cm from katiana at 24 cm at the lip. 1% lidocaine was infiltrated into the skin and subcutaneous tissue approximately 2 fingerbreadths above the katiana. A 2 cm incision was made in a horizontal fashion using a 15 blade. Using a hemostat the soft tissues were bluntly dissected until the trachea was encountered. The ET tube was then pulled back slowly to 16 cm. Using the introducer needle, the trachea was entered under direct visualization. The wire was passed down the trachea towards the katiana. Introducer needle was then removed. The trachea was then serially dilated, after which a 8 [place] tracheostomy tube was inserted. The balloon was visualized via fiberoptic bronchoscopy. The balloon was inflated, patient placed back on ventilator. There was end-tidal CO2 detected and tidal volumes assessed which were satisfactory. The bronchoscope was then placed through the tracheostomy and showed good positioning of the tracheostomy approximately 4cm above the katiana and no bleeding or mucus. A drain sponge was placed between the skin and tracheostomy. The tracheostomy was secured to the patient's neck using a tracheostomy strap. We then proceeded to perform the PEG tube. The entry level assistant manager surgeon performed endoscopy. A mouthguard was placed through which a flexible endoscope was passed through the mouth and into the esophagus. The NG tube was visualized along the way. The endoscope was advanced through the esophagus and into the stomach. The stomach was unremarkable. The stomach was insufflated and transillumination performed. A clear area of transillumination was visualized in the mid upper abdomen and marked. The skin was then prepped and draped in usual sterile fashion. Local anesthetic was infiltrated into the skin at the intended incision site. A small incision was made in the skin using an 11 blade. An introducer needle/breakaway sheath was inserted directly through this incision into the stomach under direct endoscopic visualization. The needle was removed. The wire was passed and grasped with a snare by the entry level assistant manager and the wire pulled along with the endoscope through the mouth. The PEG tube was assembled onto the wire and pulled back through the mouth and down into the stomach. The outer bumper was at 2 cm at the skin. The PEG tube was cut to siz e and assembled in the usual fashion. A drain sponge was applied between the skin and the PEG tube and the tube secured with tape. The endoscope was then reinserted into the mouth by the entry level assistant manager surgeon and advanced into the stomach. The PEG tube inner bumper was seen to lay flush against the gastric mucosa without tension. There is no bleeding. The stomach was then desufflated and the endoscope withdrawn. The patient tolerated the procedures well. All sharps were disposed of appropriately. The patient was taken back to the ICU in stable condition.
[2020-09-22] MEDS: INSULIN LISPRO 100 UNIT/ML SUB-Q SCH ×6 (06:12→19:11)
--- NOTE | 2020-09-22 08:43 | Progress Note ---
Assessment and Plan Assessment and plan: S/p cardiopulmonary arrest Toxic metabolic encephalopathy +/-anoxic injury Acute hypoxic respiratory failure Acute kidney injury Seizure disorder Hyperkalemia COVID-19 pneumonia Sepsis Transaminitis Morbid obesity. 09/15/2020. MRI brain for further evaluation. Continue AEDs of valproic acid and Keppra. Continue hemodialysis per nephrology recommendations. Overall prognosis remains guarded and poor. 09/16/2020. ID recommends continue to monitor patient off of antibiotics. Fever most likely of central etiology. Patient with questionable seizures versus myoclonus from anoxic brain injury. Patient unable to undergo MRI due to body habitus. Continue AEDs per neurology recommendations. Inflammatory markers elevated. Patient was recently hospitalized for COVID-19 pneumonia at the [place] prior to being hospitalized here. Patient not a candidate for remdesivir due to hepatic and renal failure. Viral hepatitis panel negative. Overall prognosis extremely poor. 09/17/2020. Fevers have resolved over the past 48 hours. Continue to monitor off antibiotics per ID recommendations. Patient with questionable seizures versus myoclonus from anoxic brain injury. Patient unable to undergo MRI due to body habitus. EEG is nonspecific but given CT of head findings consistent with anoxic encephalopathy, brain injury. Continue AEDs per neurology recommendations. Inflammatory markers elevated. Patient was recently hospitalized for COVID-19 pneumonia at the [place] prior to being hospitalized here. Patient not a candidate for remdesivir due to hepatic and renal failure. Viral hepatitis panel negative. Patient is s/p emergent HD on Friday (hyperK) and Friday - 09/08. Patient also S/p HD 09/15. Continue hemodialysis per nephrology recommendations. Patient currently on AC/PRVC mode ventilation with rate of 30, tidal volume 475, FiO2 30% and PEEP of 6. As stated in neuro note, overall prognosis is very poor. 09/18/2020. Fevers have resolved over the past 72 hours. Continue to monitor off antibiotics per ID recommendations. Leukocytosis persistent for the past 4 days. Patient with questionable seizures/myoclonus from anoxic brain injury. Patient unable to undergo MRI due to body habitus. EEG is nonspecific but given CT of head findings consistent with anoxic encephalopathy, brain injury. Continue AEDs per neurology recommendations. Inflammatory markers elevated. Patient was recently hospitalized for COVID-19 pneumonia at the [place] prior to being hospitalized here. Patient not a candidate for remdesivir due to hepatic and renal failure. Viral hepatitis panel negative. Patient currently on AC/PRVC mode ventilation with rate of 30, tidal volume 475, FiO2 30% and PEEP of 6. Overall prognosis remains guarded/poor. 07/19/2021 Fevers have resolved over the past 4 days. Continue to monitor off antibiotics per ID recommendations. Leukocytosis persistent for the past 4 days. Patient with questionable seizures/myoclonus from anoxic brain injury. Patient unable to undergo MRI due to body habitus. EEG is nonspecific but given CT of head findings consistent with anoxic encephalopathy, brain injury. Continue AEDs per neurology recommendations. Inflammatory markers elevated. Patient was recently hospitalized for COVID-19 pneumonia at the [place] prior to being hospitalized here. Patient not a candidate for remdesivir due to hepatic and renal failure. Viral hepatitis panel negative. Patient currently on AC/PRVC mode ventilation with rate of 30, tidal volume 475, FiO2 30% and PEEP of 6. Overall prognosis remains guarded/poor. 09/20/2020 -Surgery consulted for PEG and trach, will continue to follow. 09/21/2020; patient will have PEG and trach by Dr. hayes today. Prognosis is poor. Continue with current management. Nursing Unit Clerk is following for vent management. 09/22/2020; patient had PEG and trach yesterday. The high probability of a clinically significant, sudden or life threatening deterioration of the [cardiac, respiratory and neurological] system(s) required my full and direct attention, intervention and personal management. The [facility] critical care time was [32] minutes. This time is in addition to time spent performing reported procedures but includes the following: [x] Data Review and interpretation [x] Patient assessment and monitoring of vital signs [x] Documentation [x] Medication orders and management History Interval history: Patient was intubated and sedated Patient is on mechanical ventilator Patient has PEG and trach Hospitalist Physical - Physical exam Narrative exam: On mechanical ventilation. Patient has PEG and a trach The patient appeared well nourished and normally developed. Vital signs as documented. Head exam is unremarkable. No scleral icterus . Neck is without jugular venous distension, thyromegaly, or carotid bruits. Lungs are clear to auscultation. Cardiac exam reveals regular rate and Rhythm. Abdominal exam reveals normal bowel sounds, nontender, no organomegaly. Extremities are nonedematous and both femoral and pedal pulses are normal. 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 - Constitutional Vitals: Temp Pulse Resp BP Pulse Ox 98.5 F 57 L 22 155/78 100 09/22/20 07:00 09/22/20 08:11 09/22/20 08:00 09/22/20 08:11 09/22/20 08:24 General appearance: Present: other (Intubated sedated) HEART Score - HEART Score Troponin: Troponin T 0.076 ng/mL (0.00-0.029) H 09/07/20 14:00 Results - Labs CBC & Chem 7: 09/21/20 05:00 09/21/20 05:00 Labs: Laboratory Last Values WBC 17.4 K/mm3 (4.5-11.0) H 09/21/20 05:00 RBC 2.95 M/mm3 (3.65-5.03) L 09/21/20 05:00 Hgb 8.3 gm/dl (11.8-15.2) L 09/21/20 05:00 Hct 25.8 % (35.5-45.6) L 09/21/20 05:00 MCV 87 fl (84-94) 09/21/20 05:00 MCH 28 pg (28-32) 09/21/20 05:00 MCHC 32 % (32-34) 09/21/20 05:00 RDW 19.3 % (13.2-15.2) H 09/21/20 05:00 Plt Count 212 K/mm3 (140-440) 09/21/20 05:00 Lymph % (Auto) 11.1 % (13.4-35.0) L 09/21/20 05:00 Steele % (Auto) 11.1 % (0.0-7.3) H 09/21/20 05:00 Eos % (Auto) 1.8 % (0.0-4.3) 09/21/20 05:00 Baso % (Auto) 0.1 % (0.0-1.8) 09/21/20 05:00 Lymph # (Auto) 1.9 K/mm3 (1.2-5.4) 09/21/20 05:00 Steele # (Auto) 1.9 K/mm3 (0.0-0.8) H 09/21/20 05:00 Eos # (Auto) 0.3 K/mm3 (0.0-0.4) 09/21/20 05:00 Baso # (Auto) 0.0 K/mm3 (0.0-0.1) 09/21/20 05:00 Add Manual Diff Complete 09/19/20 05:13 Total Counted 100 09/19/20 05:13 Seg Neutrophils % 75.9 % (40.0-70.0) H 09/21/20 05:00 Seg Neuts % (Manual) 87.0 % (40.0-70.0) H 09/19/20 05:13 Band Neutrophils % 1.0 % 09/19/20 05:13 Lymphocytes % (Manual) 5.0 % (13.4-35.0) L 09/19/20 05:13 Monocytes % (Manual) 7.0 % (0.0-7.3) 09/19/20 05:13 Eosinophils % (Manual) 2.0 % (0.0-4.3) 09/07/20 14:00 Metamyelocytes % 2.0 % 09/08/20 Unknown Nucleated RBC % Not Reportable 09/19/20 05:13 Seg Neutrophils # 13.2 K/mm3 (1.8-7.7) H 09/21/20 05:00 Seg Neutrophils # Man 19.8 K/mm3 (1.8-7.7) H 09/19/20 05:13 Band Neutrophils # 0.2 K/mm3 09/19/20 05:13 Lymphocytes # (Manual) 1.1 K/mm3 (1.2-5.4) L 09/19/20 05:13 Abs React Lymphs (Man) 0.0 K/mm3 09/19/20 05:13 Monocytes # (Manual) 1.6 K/mm3 (0.0-0.8) H 09/19/20 05:13 Eosinophils # (Manual) 0.0 K/mm3 (0.0-0.4) 09/19/20 05:13 Basophils # (Manual) 0.0 K/mm3 (0.0-0.1) 09/19/20 05:13 Metamyelocytes # 0.0 K/mm3 09/19/20 05:13 Myelocytes # 0.0 K/mm3 09/19/20 05:13 Promyelocytes # 0.0 K/mm3 09/19/20 05:13 Blast Cells # 0.0 K/mm3 09/19/20 05:13 WBC Morphology Not Reportable 09/19/20 05:13 Hypersegmented Neuts Not Reportable 09/19/20 05:13 Hyposegmented Neuts Not Reportable 09/19/20 05:13 Hypogranular Neuts Not Reportable 09/19/20 05:13 Smudge Cells Not Reportable 09/19/20 05:13 Toxic Granulation Not Reportable 09/19/20 05:13 Toxic Vacuolation Not Reportable 09/19/20 05:13 Dohle Bodies Not Reportable 09/19/20 05:13 Pelger-Huet Anomaly Not Reportable 09/19/20 05:13 Justus Rods Not Reportable 09/19/20 05:13 Platelet Estimate Consistent w auto 09/19/20 05:13 Clumped Platelets Not Reportable 09/19/20 05:13 Plt Clumps, EDTA Not Reportable 09/19/20 05:13 Large Platelets Not Reportable 09/19/20 05:13 Giant Platelets Not Reportable 09/19/20 05:13 Platelet Satelliting Not Reportable 09/19/20 05:13 Plt Morphology Comment Not Reportable 09/19/20 05:13 RBC Morphology Not Reportable 09/19/20 05:13 Dimorphic RBCs Not Reportable 09/19/20 05:13 Polychromasia Not Reportable 09/19/20 05:13 Hypochromasia Not Reportable 09/19/20 05:13 Poikilocytosis Not Reportable 09/19/20 05:13 Anisocytosis 1+ 09/19/20 05:13 Microcytosis Not Reportable 09/19/20 05:13 Macrocytosis Not Reportable 09/19/20 05:13 Spherocytes Not Reportable 09/19/20 05:13 Pappenheimer Bodies Not Reportable 09/19/20 05:13 Sickle Cells Not Reportable 09/19/20 05:13 Target Cells Not Reportable 09/19/20 05:13 Tear Drop Cells Not Reportable 09/19/20 05:13 Ovalocytes Not Reportable 09/19/20 05:13 Helmet Cells Not Reportable 09/19/20 05:13 [place] Bodies Not Reportable 09/19/20 05:13 [place] Rings Not Reportable 09/19/20 05:13 [place] Cells Not Reportable 09/19/20 05:13 Bite Cells Not Reportable 09/19/20 05:13 Crenated Cell Not Reportable 09/19/20 05:13 Elliptocytes Not Reportable 09/19/20 05:13 Acanthocytes (Spur) Not Reportable 09/19/20 05:13 Rouleaux Not Reportable 09/19/20 05:13 Hemoglobin C Crystals Not Reportable 09/19/20 05:13 Schistocytes Not Reportable 09/19/20 05:13 Malaria parasites Not Reportable 09/19/20 05:13 [place] Bodies Not Reportable 09/19/20 05:13 Hem Pathologist Commnt No 09/19/20 05:13 PT 16.1 Sec. (12.2-14.9) H 09/12/20 04:00 INR 1.31 (0.87-1.13) H 09/12/20 04:00 APTT 32.4 Sec. (24.2-36.6) 09/09/20 10:00 D-Dimer 8315.85 ng/mlDDU (0-234) H 09/07/20 14:00 ABG pH 7.442 (7.320-7.450) 09/14/20 03:54 POC ABG pCO2 42.3 mmHg (32.0-48.0) 09/14/20 03:54 ABG pCO2 33.4 mm Hg 09/11/20 05:40 POC ABG pO2 71.1 mmHg (83-108) L 09/14/20 03:54 ABG pO2 112.1 mm Hg (80.0-90.0) H 09/11/20 05:40 POC ABG HCO3 28.2 09/14/20 03:54 ABG HCO3 28.1 mmol/L (20.0-26.0) H 09/11/20 05:40 ABG O2 Saturation 98.4 % (95.0-99.0) 09/11/20 05:40 ABG O2 Content 11.6 (0.0-44) 09/11/20 05:40 POC ABG Base Excess 3.7 09/14/20 03:54 ABG Base Excess 5.4 mmol/L (-2.0-3.0) H 09/11/20 05:40 ABG Hemoglobin 10.3 (12.0-17.5) L 09/14/20 03:54 ABG Oxyhemoglobin 93.2 (94-98) L 09/13/20 04:47 ABG Carboxyhemoglobin 1.2 % (0.0-5.0) 09/11/20 05:40 ABG Methemoglobin 0.3 (0.0-1.5) 09/13/20 04:47 ABG Sodium 135.2 mmol/L (136.0-145.0) L 09/14/20 03:54 ABG Potassium 3.8 mmol/L (3.40-4.50) 09/14/20 03:54 ABG Chloride 98.0 mmol/L (98-107) 09/14/20 03:54 ABG Glucose 281 mg/dL (65-95) H 09/14/20 03:54 Oxyhemoglobin 96.8 % (95.0-99.0) 09/11/20 05:40 Carboxyhemoglobin 0.4 (0.5-1.5) L 09/13/20 04:47 FiO2 30 09/14/20 03:54 Sodium 143 mmol/L (137-145) 09/21/20 05:00 Potassium 3.9 mmol/L (3.6-5.0) 09/21/20 05:00 Chloride 104.8 mmol/L (98-107) 09/21/20 05:00 Carbon Dioxide 23 mmol/L (22-30) 09/21/20 05:00 Anion Gap 19 mmol/L 09/21/20 05:00 BUN 60 mg/dL (9-20) H 09/21/20 05:00 Creatinine 3.5 mg/dL (0.8-1.3) H 09/21/20 05:00 Estimated GFR 21 ml/min 09/21/20 05:00 BUN/Creatinine Ratio 17 % 09/21/20 05:00 Glucose 185 mg/dL (75-100) H 09/21/20 05:00 POC Glucose 162 mg/dL (70-105) H 09/21/20 23:32 Lactic Acid 2.90 mmol/L (0.7-2.0) H* 09/17/20 13:52 Calcium 9.4 mg/dL (8.4-10.2) 09/21/20 05:00 Phosphorus 8.00 mg/dL (2.5-4.5) H 09/08/20 12:02 Magnesium 1.80 mg/dL (1.7-2.3) 09/08/20 12:02 Ferritin > 2000.0 ng/mL (30.0-300.0) H 09/07/20 14:00 Total Bilirubin 0.90 mg/dL (0.1-1.2) 09/17/20 04:00 Direct Bilirubin 0.5 mg/dL (0-0.2) H 09/08/20 05:00 Indirect Bilirubin 0.5 mg/dL 09/08/20 05:00 AST 64 units/L (5-40) H 09/17/20 04:00 ALT 516 units/L (7-56) H 09/17/20 04:00 Alkaline Phosphatase 87 units/L (35-129) 09/17/20 04:00 Ammonia 50.0 umol/L (25-60) 09/07/20 14:00 Lactate Dehydrogenase 882 units/L (91-180) H 09/07/20 14:00 Total Creatine Kinase 477 units/L (55-170) H 09/07/20 14:00 Troponin T 0.076 ng/mL (0.00-0.029) H 09/07/20 14:00 C-Reactive Protein 1.10 mg/dL (0.00-1.30) 09/07/20 14:00 Total Protein 5.7 g/dL (6.3-8.2) L 09/17/20 04:00 Albumin 2.8 g/dL (3.9-5) L 09/17/20 04:00 Albumin/Globulin Ratio 1.0 % 09/17/20 04:00 Triglycerides 220 mg/dL (2-149) H 09/12/20 Unknown Procalcitonin 1.52 ng/mL (<0.15) 09/17/20 13:02 TSH 2.290 mlU/mL (0.270-4.200) 09/07/20 14:00 Arterial Blood Glucose 281 mg/dL (65-95) H 09/14/20 03:54 Arterial Blood Ionized Calcium 4.6 mg/dL (4.6-5.3) 09/14/20 03:54 Urine Color Straw (Yellow) 09/07/20 13:08 Urine Turbidity Slightly-cloudy (Clear) 09/07/20 13:08 Urine pH 8.0 (5.0-7.0) H 09/07/20 13:08 Ur Specific [place] 1.006 (1.003-1.030) 09/07/20 13:08 Urine Protein 100 mg/dl mg/dL (Negative) 09/07/20 13:08 Urine Glucose (UA) Neg mg/dL (Negative) 09/07/20 13:08 Urine Ketones Neg mg/dL (Negative) 09/07/20 13:08 Urine Blood Neg (Negative) 09/07/20 13:08 Urine Nitrite Neg (Negative) 09/07/20 13:08 Urine Bilirubin Neg (Negative) 09/07/20 13:08 Urine Urobilinogen < 2.0 mg/dL (<2.0) 09/07/20 13:08 Ur Leukocyte Esterase Neg (Negative) 09/07/20 13:08 Urine WBC (Auto) 4.0 /HPF (0.0-6.0) 09/07/20 13:08 Urine RBC (Auto) 18.0 /HPF (0.0-6.0) 09/07/20 13:08 U Epithel Cells (Auto) 1.0 /HPF (0-13.0) 09/07/20 13:08 Urine Mucus Few /HPF 09/07/20 13:08 Urine Sperm 3+ /HPF (GOVERNMENT SERVICES PROFESSIONAL) 09/07/20 13:08 Urine Creatinine 182.4 mg/dL (0.1-20.0) H 09/08/20 Unknown Urine Sodium 40 mmol/L 09/08/20 Unknown Salicylates < 0.3 mg/dL (2.8-20.0) L 09/07/20 14:00 Acetaminophen 5.0 ug/mL (10.0-30.0) L 09/07/20 14:00 Plasma/Serum Alcohol < 0.01 % (0-0.07) 09/07/20 14:00 Coronavirus (PCR) Negative (Negative) 09/19/20 Unknown Hepatitis A IgM Ab Non-reactive (NonReactive) 09/07/20 14:00 Hep Bs Antigen Non-reactive (Negative) 09/07/20 14:00 Hep B Core IgM Ab Non-reactive (NonReactive) 09/07/20 14:00 Hepatitis C Antibody Non-reactive (NonReactive) 09/07/20 14:00 HIV 1&2 Antibody Rapid Non react (Non React) 09/07/20 14:34 HIV P24 Antigen Non react (Non React) 09/07/20 14:34 Blood Type O POSITIVE 09/09/20 10:00 Antibody Screen Negative 09/07/20 14:00 Mae/IV: Voiding Method Indwelling Catheter IV Catheter Type [Right Triple Lumen Cath Femoral] IV Catheter Type [Left Peripheral IV Antecubital] IV Catheter Type [Left Hand] Peripheral IV IV Catheter Type [Right Peripheral IV Antecubital] Active Medications - Current Medications Current Medications: Generic Name Dose Route Start Last Admin Trade Name Freq PRN Reason Stop Dose Admin Acetaminophen 400 mg 09/10/20 20:50 09/14/20 23:38 Acetaminophen 325 Mg/10.15 Ml Oral Liqd Unit Dose PO 400 mg Q4HR PRN Administration Non Cardiac Pain or Temp>100.5 Lipase/Protease/Amylase 1 each 09/09/20 09:40 Lipase 10,500/Protease 25,000/Amylase 43,750 (Units) Dr Armenta FEEDTUBE PRN PRN For Clogged Feeding Tube Famotidine 20 mg 09/20/20 11:00 09/21/20 10:34 Famotidine 20 Mg/2 Ml Inj IV 20 mg DAILY TAYLOR Administration Hydrophilic Ointment 1 applic 09/07/20 13:08 Lip Therapy Vaseline TP Q2HR PRN Dry Lips Sodium Chloride 100 mls @ 999 mls/hr 09/09/20 13:36 Nacl 0.9% IV JAYJAY PRN Hypotension Levetiracetam 1,500 mg/ 115 mls @ 400 mls/hr 09/11/20 10:00 09/21/20 21:03 Dextrose IV 400 mls/hr BID TAYLOR Administration Valproate Sodium 1,000 mg/ 110 mls @ 100 mls/hr 09/14/20 22:00 09/21/20 21:03 Sodium Chloride IV 100 mls/hr Q12HR TAYLOR Administration Insulin Human Lispro 0 unit 09/12/20 12:00 09/22/20 06:13 Insulin Lispro 100 Unit/Ml SUB-Q 3 unit Q6HR TAYLOR Administration Protocol Lansoprazole 30 mg 09/11/20 11:00 09/19/20 22:04 Lansoprazole 30 Mg Solutab FEEDTUBE 30 mg BID TAYLOR Administration Lorazepam 2 mg 09/08/20 00:14 09/14/20 13:36 Lorazepam 2 Mg/Ml Vial IV 2 mg Q4H PRN Administration Seizures Multi-Ingred Cream/Lotion/Oil/Oint 1 applic 09/07/20 13:08 09/20/20 10:50 Mineral Oil/Petrolatum, White Ophth Oint 3.5 Gm OU 1 applic Q4HR PRN Administration Dry Eye(s) Multivitamins 5 ml 09/09/20 12:00 09/21/20 10:43 Multivitamins 5 Ml Oral Liquid PO Not Given QDAY TAYLOR Ondansetron HCl 4 mg 09/07/20 17:55 09/19/20 04:00 Ondansetron 4 Mg/2 Ml Inj IV 4 mg Q8H PRN Administration Nausea And Vomiting Senna/Docusate Sodium 2 tab 09/20/20 11:00 Sennosides/Docusate Sodium 8.6/50 Mg Tab PO BID PRN Laxative Effect Simple Syrup 15 ml 09/09/20 09:40 09/17/20 17:43 Simple Syrup 15 Ml FEEDTUBE 15 ml PRN PRN Administration Hypoglycemia Simple Syrup 30 ml 09/09/20 09:40 Simple Syrup 15 Ml FEEDTUBE PRN PRN Hypoglycemia Sodium Bicarbonate 325 mg 09/09/20 09:40 Sodium Bicarbonate 325 Mg Tab FEEDTUBE PRN PRN For Clogged Feeding Tube Sodium Chloride 10 ml 09/07/20 22:00 09/21/20 22:00 Sodium Chloride 0.9% 10 Ml Flush Syringe IV 10 ml BID TAYLOR Administration Sodium Chloride 10 ml 09/07/20 17:55 Sodium Chloride 0.9% 10 Ml Flush Syringe IV PRN PRN LINE FLUSH Nutrition/Malnutrition Assess - Dietary Evaluation Nutrition/Malnutrition Findings: Nutrition Notes Start: 09/08/20 12:01 Freq: Status: Active Protocol: Document 09/21/20 12:29 AT (Rec: 09/21/20 12:50 AT [email or web address]) Co-Sign 09/21/20 12:29 NHALL Nutrition Notes Initial or Follow up Reassessment Current Diagnosis Acute Kidney Injury, Respiratory Failure Other Pertinent Diagnosis on HD, cardiac arrest, COVID ( +), metabolic encephalopathy, pneu Current Diet Nepro 1.8 at 45 mL/hr Labs/Tests BUN 60 Cr 3.5 BG 185 Pertinent Medications Reviewed Height 6 ft Weight 166.5 kg [place] Body Weight (kg) 80.90 BMI 49.8 Weight Status Morbidly Obese Subjective/Other Information F/U for TF tolerance. Per MD , pt had emesis for 3 consecutive days. Pt has been evaluated for trach and PEG and will receive them today. Pt remains on vent with plans to wean. Percent of energy/protein needs met: 0%/0% Burn Absent Trauma Absent GI Symptoms Vomiting Current % PO Negligible Minimum of two criteria No physical signs of malnutrition #1 Nutrition Diagnosis Inadequate oral intake Diagnosis Progress(for reassessment Continues documentation) Is patient on ventilator? Yes Is Patient Ambulatory and/or Out of Bed No REE-([place]-confined to bed) 2995.752 Kcal/Kg value to use for calculation 12 Approximate Energy Requirements Using 1998 kcal/Kg Calculation Used for Recommendations Kcal/kg Additional Notes PRO needs: >149g (>1.2g/kg AdBW 124kg) Fluid Needs: 6285-8635 mL or per MD Nutrition Intervention Change Diet Order: Continue TF Nutrition Support: Nepro 1.8 at 45 mL/hr Flush 200 mL q4h Kcal 1,944 Protein (gm) 87 Fluid (mL) 785 Goal #1 Meet nutrient needs as best as possible with TF Anticipated Discharge Needs: TF via PEG Follow-Up By: 09/22/20 Additional Comments F/U for PEG placement, TF restart
[2020-09-22] MEDS: levETIRAcetam 1,500 MG in DEXTROSE 5% IN WATER 100 ML IV SCH ×2 (09:35→21:15)
[2020-09-22] MEDS: FAMOTIDINE 20 MG/2 ML INJ IV SCH (09:35)
[2020-09-22] MEDS: VALPROATE SODIUM 1,000 MG in SODIUM CHLORIDE 0.9% 100 ML IV SCH ×2 (09:35→21:15)
[2020-09-22] MEDS: MULTIVITAMINS 5 ML ORAL LIQUID PO SCH (09:35)
--- NOTE | 2020-09-22 10:17 | Progress Note ---
Assessment and Plan 65 y/o male with out of hospital cardiac arrest now sedated on ativan for possible seizures. 09/22/20: PSV trial today as tolerated and every day from this day forward. NO sedation. Continue antiepileptic therapy. HD per renal. Still having issues with feeds. Will contact to see if he has any food allergies. Prognosis still remains very poor. WIll start some promotility agents as well. 09/21/20: Trach and peg today. Continue with vent weaning. Hopeful we can wean him off the vent once trached. [facility] Prognosis remains very poor for recovery of functional state. 09/20/20: Placed consult to surgery now that COVID is negative. However, patient is morbidly obese and his surgery will likely be a complicated one especially with peg placement. Await surgery eval and recs. HD per renal. Continue daily PSV trials, mental status precludes extubation traditionally but maybe able to wean off vent with stable airway such as trach. [facility] has denied transfer and placement requests at this time based on CM notes. Prognosis is very poor, but after speaking with neurology and neurosurgery, patient wishes to continue aggressive measures. 09/19/20: Ordered repeat COVID as surgery will not do trach and peg until negative status. Continue supportive measures. 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 09/18/20: Unable to fit in MRI. Repeat CT showed improvement in edema but no clinical response is seen with this. Will continue Antiepileptic therapy. If wishes to proceed, will need trach and peg. Not sure if he would be candidate for PEG given his size but will ask surgery. Will need repeat COVID test prior to surgery. 09/15/20: Order MRI brain without contrast. Per surgery this will help to add more in regards to prognosis. Continue Valproic Acid and Keppra for seizure therapy. HD going now per renal. Overall prognosis remains guarded to poor. Please reach out to over the weekend to update her as I am not rounding this weekend, ,my partner will be covering. 09/14/20: Will load with valproic acid and then start to wean Diprovan. Spoke with today, very tearful on the phone. Explained to that Neurosurgery would come and eval tonight but not a candidate for the other therapies she asked about since his edema is related to anoxic injury. Very very poor prognosis. 09/13/20: Per current neuro available, the neurologist from yesterday will call today. EEG is nonspecific but given CT of head findings consistent with anoxic encephalopathy, brain injury. As stated in neuro note, overall prognosis is very poor. Will continue to wean down diprovan to see if patient's seizures have been controlled with current Keppra dosing. Will call once she has spoken to neuro to get her thoughts on the next steps. (trach and peg, vs hospice as well as code status). Very very poor prognosis. 09/12/20: Long discussion with this am. Given recent head CT results, prognosis for full functional recovery is very POOR and neurology agrees. They will see in consult today. I have spoken to about AND and she is going to discuss with the family. The neurologist has stated they will reach out to the today. I am going to attempt to wean the ativan off and then start to wean the diprovan as long as no seizure activity is seen. Patient is now bradycardic, likely secondary to neuro state. I hope that he is not about to herniate. Patient is also like in Neurogenic DI given large urine out put volume. Very very poor prognosis. Continue supportive measures. 09/11/20: Will increase Keppra to 1500 BID given patient size. Continue Diprovan drip. Getting EEG today. HD per renal. Needs neurology consult however if patient is in status, needs to be transferred to an institution that can provide continuous EEG monitoring. Overll prognosis is very guarded to poor. Have not spoken to yet today. 09/10/20: Loaded with keppra and will start on Keppra BID. Needs EEG on therapy as well as OFF. If patient is in status, needs transfer to a location with continuous EEG capabilities. FiO2 has been weaned back down and is now at 60%, sats in the high 90's. HD per renal. Coags improving. Overall prognosis is guarded to poor. Spoke with on phone yesterday. Consult neurology tomorrow as not available on the weekend. Suggest checking for antibodies as he may be a candidate for convalsescent plasma. Per the , he was diagnosed with COVID on and spent 6 days inpatient at the [place]. Remains positive now with multisystem organ failure. Explained to that outcome may not be good but need more time to assess. 09/09/20: EEG ordered on yesterday but not done. If done not read. Continue diprovan for now until EEG can be done or interpreted. State Coags but given his oozing from his vascath, will give Vitamin K and FFP. Patient is covid positive so agree with steroids. Not a candidate for remdesivir. Need to check for antibodies, may be a candidate for convalescent plasma. HD per renal. Given improvement in pH will stop bicarb drip. Feed patient. 1. Stop sedation 2. EEG 3. Needs neuro consult. 4. Art line placement 5. Stat repeat of labs, if renal function is truly that bad, will need renal consult. 6. Follow up COVID testing 7. Likely needs echo 8. Will place on bicarb drip. CCT 31 minutes. Subjective Date of service: 09/22/20 Principal diagnosis: Abnormal LFTs, s/p cardiac arrest, acute kidney injury with ATN Interval history: Tolerated Trach and Peg on yesterday. No acute events. HD scheduled for today. Remainder is negative. No seizures. No fever. Objective Vital Signs - 12hr 09/21/20 09/21/20 09/21/20 23:00 23:02 23:03 Temperature Pulse Rate 57 L 58 L 58 L Pulse Rate [ Apical] Pulse Rate [ From Monitor] Respiratory 28 H 26 H Rate Blood Pressure 167/81 167/81 167/81 O2 Sat by Pulse 100 100 100 Oximetry O2 Sat by Pulse Oximetry [ Assessment] 09/21/20 09/22/20 09/22/20 23:50 00:00 01:00 Temperature 98.1 F Pulse Rate 59 L 59 L Pulse Rate [ 58 L Apical] Pulse Rate [ 58 L From Monitor] Respiratory 28 H 25 H Rate Blood Pressure 171/84 167/77 O2 Sat by Pulse 100 100 Oximetry O2 Sat by Pulse Oximetry [ Assessment] 09/22/20 09/22/20 09/22/20 01:10 01:20 01:30 Temperature Pulse Rate 59 L 58 L 58 L Pulse Rate [ Apical] Pulse Rate [ From Monitor] Respiratory 28 H 28 H 25 H Rate Blood Pressure 178/78 159/81 170/77 O2 Sat by Pulse 100 100 100 Oximetry O2 Sat by Pulse Oximetry [ Assessment] 09/22/20 09/22/20 09/22/20 01:40 01:50 02:00 Temperature Pulse Rate 58 L 57 L 60 Pulse Rate [ Apical] Pulse Rate [ From Monitor] Respiratory 19 25 H 11 L Rate Blood Pressure 163/75 161/79 169/87 O2 Sat by Pulse 100 100 100 Oximetry O2 Sat by Pulse Oximetry [ Assessment] 09/22/20 09/22/20 09/22/20 02:10 02:20 02:30 Temperature Pulse Rate 58 L 58 L 57 L Pulse Rate [ Apical] Pulse Rate [ From Monitor] Respiratory 26 H 22 22 Rate Blood Pressure 169/76 170/79 172/81 O2 Sat by Pulse 100 100 100 Oximetry O2 Sat by Pulse Oximetry [ Assessment] 09/22/20 09/22/20 09/22/20 02:40 02:50 03:00 Temperature Pulse Rate 58 L 57 L 58 L Pulse Rate [ Apical] Pulse Rate [ From Monitor] Respiratory 21 20 23 Rate Blood Pressure 167/83 175/81 171/81 O2 Sat by Pulse 100 100 100 Oximetry O2 Sat by Pulse Oximetry [ Assessment] 09/22/20 09/22/20 09/22/20 03:10 03:20 03:25 Temperature 98.2 F Pulse Rate 58 L 58 L Pulse Rate [ Apical] Pulse Rate [ From Monitor] Respiratory 26 H 30 H Rate Blood Pressure 168/87 182/81 O2 Sat by Pulse 100 100 Oximetry O2 Sat by Pulse Oximetry [ Assessment] 09/22/20 09/22/20 09/22/20 03:30 03:45 04:00 Temperature Pulse Rate 58 L 59 L 57 L Pulse Rate [ 58 L Apical] Pulse Rate [ 58 L From Monitor] Respiratory 19 28 H Rate Blood Pressure 177/84 168/87 173/76 O2 Sat by Pulse 100 100 100 Oximetry O2 Sat by Pulse Oximetry [ Assessment] 09/22/20 09/22/20 09/22/20 05:00 06:00 07:00 Temperature 98.5 F Pulse Rate 60 63 65 Pulse Rate [ Apical] Pulse Rate [ From Monitor] Respiratory 31 H 30 H 30 H Rate Blood Pressure 169/81 170/84 184/85 O2 Sat by Pulse 100 100 100 Oximetry O2 Sat by Pulse Oximetry [ Assessment] 09/22/20 09/22/20 09/22/20 08:00 08:11 08:24 Temperature Pulse Rate 59 L 57 L Pulse Rate [ 58 L Apical] Pulse Rate [ 57 L From Monitor] Respiratory 26 H Rate Blood Pressure 160/84 155/78 O2 Sat by Pulse 100 100 Oximetry O2 Sat by Pulse 100 Oximetry [ Assessment] 09/22/20 09/22/20 09:00 09:30 Temperature Pulse Rate 60 62 Pulse Rate [ Apical] Pulse Rate [ From Monitor] Respiratory 30 H 16 Rate Blood Pressure 162/74 163/64 O2 Sat by Pulse 100 100 Oximetry O2 Sat by Pulse Oximetry [ Assessment] Constitutional: comatose, other (morbidly obese) Eyes: non-icteric ENT: other (orally intubated and sedated) Neck: supple Effort: normal Ascultation: Bilateral: diminished breath sounds Percussion: Bilateral: not dull Cardiovascular: other (bradycardic) Gastrointestinal: soft CBC and BMP: 09/21/20 05:00 09/21/20 05:00 ABG, PT/INR, D-dimer: ABG ABG pH 7.442 (7.320-7.450) 09/14/20 03:54 POC ABG pCO2 42.3 mmHg (32.0-48.0) 09/14/20 03:54 ABG pCO2 33.4 mm Hg 09/11/20 05:40 POC ABG pO2 71.1 mmHg (83-108) L 09/14/20 03:54 ABG pO2 112.1 mm Hg (80.0-90.0) H 09/11/20 05:40 POC ABG HCO3 28.2 09/14/20 03:54 ABG O2 Saturation 98.4 % (95.0-99.0) 09/11/20 05:40 PT/INR, D-dimer PT 16.1 Sec. (12.2-14.9) H 09/12/20 04:00 INR 1.31 (0.87-1.13) H 09/12/20 04:00 D-Dimer 8315.85 ng/mlDDU (0-234) H 09/07/20 14:00 Abnormal lab findings: Abnormal Labs 09/07/20 09/07/20 09/07/20 13:08 14:00 14:00 WBC 15.7 H RBC Hgb 10.2 L Hct 32.5 L MCHC 31 L RDW 17.5 H Lymph % (Auto) [place] % (Auto) Lymph # (Auto) [place] # (Auto) Seg Neutrophils % Seg Neuts % (Manual) 72.0 H Lymphocytes % (Manual) Monocytes % (Manual) 8.0 H Nucleated RBC % Seg Neutrophils # Seg Neutrophils # Man 11.3 H Lymphocytes # (Manual) Monocytes # (Manual) 1.3 H PT INR D-Dimer 8315.85 H ABG pH POC ABG pCO2 POC ABG pO2 ABG pO2 ABG HCO3 ABG Base Excess ABG Hemoglobin ABG Oxyhemoglobin ABG Sodium ABG Potassium ABG Chloride ABG Glucose Carboxyhemoglobin Sodium Potassium Chloride Carbon Dioxide BUN Creatinine Glucose POC Glucose Lactic Acid Calcium Phosphorus Ferritin Total Bilirubin Direct Bilirubin AST ALT Lactate Dehydrogenase Total Creatine Kinase Troponin T Total Protein Albumin Triglycerides Arterial Blood Glucose Arterial Blood Ionized Calcium Urine pH 8.0 H Urine Creatinine Salicylates Acetaminophen Coronavirus (PCR) 09/07/20 09/07/20 09/07/20 14:00 14:00 14:00 WBC RBC Hgb Hct MCHC RDW Lymph % (Auto) [place] % (Auto) Lymph # (Auto) [place] # (Auto) Seg Neutrophils % Seg Neuts % (Manual) Lymphocytes % (Manual) Monocytes % (Manual) Nucleated RBC % Seg Neutrophils # Seg Neutrophils # Man Lymphocytes # (Manual) Monocytes # (Manual) PT INR D-Dimer ABG pH POC ABG pCO2 POC ABG pO2 ABG pO2 ABG HCO3 ABG Base Excess ABG Hemoglobin ABG Oxyhemoglobin ABG Sodium ABG Potassium ABG Chloride ABG Glucose Carboxyhemoglobin Sodium Potassium Chloride Carbon Dioxide BUN Creatinine Glucose POC Glucose Lactic Acid 4.30 H* Calcium Phosphorus Ferritin > 2000.0 H Total Bilirubin Direct Bilirubin AST ALT Lactate Dehydrogenase 882 H Total Creatine Kinase 477 H Troponin T 0.076 H Total Protein Albumin Triglycerides Arterial Blood Glucose Arterial Blood Ionized Calcium Urine pH Urine Creatinine Salicylates Acetaminophen Coronavirus (PCR) 09/07/20 09/07/20 09/07/20 14:00 14:00 14:00 WBC RBC Hgb Hct MCHC RDW Lymph % (Auto) [place] % (Auto) Lymph # (Auto) [place] # (Auto) Seg Neutrophils % Seg Neuts % (Manual) Lymphocytes % (Manual) Monocytes % (Manual) Nucleated RBC % Seg Neutrophils # Seg Neutrophils # Man Lymphocytes # (Manual) Monocytes # (Manual) PT INR D-Dimer ABG pH POC ABG pCO2 POC ABG pO2 ABG pO2 ABG HCO3 ABG Base Excess ABG Hemoglobin ABG Oxyhemoglobin ABG Sodium ABG Potassium ABG Chloride ABG Glucose Carboxyhemoglobin Sodium Potassium Chloride Carbon Dioxide BUN Creatinine 1.8 H Glucose POC Glucose Lactic Acid Calcium Phosphorus Ferritin Total Bilirubin Direct Bilirubin AST 310 H ALT 339 H Lactate Dehydrogenase Total Creatine Kinase Troponin T Total Protein Albumin 3.6 L Triglycerides Arterial Blood Glucose Arterial Blood Ionized Calcium Urine pH Urine Creatinine Salicylates < 0.3 L Acetaminophen 5.0 L Coronavirus (PCR) 09/07/20 09/08/20 09/08/20 14:26 04:00 04:17 WBC RBC Hgb Hct MCHC RDW Lymph % (Auto) [place] % (Auto) Lymph # (Auto) [place] # (Auto) Seg Neutrophils % Seg Neuts % (Manual) Lymphocytes % (Manual) Monocytes % (Manual) Nucleated RBC % Seg Neutrophils # Seg Neutrophils # Man Lymphocytes # (Manual) Monocytes # (Manual) PT INR D-Dimer ABG pH 7.037 L 7.095 L POC ABG pCO2 92.4 H 68.0 H POC ABG pO2 130.8 H 43.5 L ABG pO2 ABG HCO3 ABG Base Excess ABG Hemoglobin 11.3 L 10.6 L ABG Oxyhemoglobin 70.8 L ABG Sodium ABG Potassium 7.0 H ABG Chloride 108.0 H ABG Glucose Carboxyhemoglobin 0.3 L Sodium Potassium 8.4 H* D Chloride Carbon Dioxide 17 L D BUN 38 H Creatinine 3.9 H D Glucose POC Glucose Lactic Acid Calcium 7.7 L D Phosphorus Ferritin Total Bilirubin Direct Bilirubin AST ALT Lactate Dehydrogenase Total Creatine Kinase Troponin T Total Protein Albumin Triglycerides Arterial Blood Glucose Arterial Blood Ionized Calcium 4.5 L Urine pH Urine Creatinine Salicylates Acetaminophen Coronavirus (PCR) 09/08/20 09/08/20 09/08/20 05:00 05:25 12:02 WBC RBC Hgb Hct MCHC RDW Lymph % (Auto) [place] % (Auto) Lymph # (Auto) [place] # (Auto) Seg Neutrophils % Seg Neuts % (Manual) Lymphocytes % (Manual) Monocytes % (Manual) Nucleated RBC % Seg Neutrophils # Seg Neutrophils # Man Lymphocytes # (Manual) Monocytes # (Manual) PT INR D-Dimer ABG pH 7.088 L POC ABG pCO2 69.1 H POC ABG pO2 35.2 L ABG pO2 ABG HCO3 ABG Base Excess ABG Hemoglobin 10.9 L ABG Oxyhemoglobin 57.1 L ABG Sodium ABG Potassium 7.0 H ABG Chloride 108.0 H ABG Glucose Carboxyhemoglobin 0.4 L Sodium Potassium 8.1 H* Chloride Carbon Dioxide 17 L BUN 38 H Creatinine 3.7 H Glucose POC Glucose Lactic Acid Calcium 8.0 L Phosphorus 8.00 H Ferritin Total Bilirubin Direct Bilirubin 0.5 H AST 3696 H ALT 3331 H Lactate Dehydrogenase Total Creatine Kinase Troponin T Total Protein Albumin 3.5 L Triglycerides Arterial Blood Glucose Arterial Blood Ionized Calcium 4.4 L Urine pH Urine Creatinine Salicylates Acetaminophen Coronavirus (PCR) 09/08/20 09/08/20 09/08/20 16:31 22:36 Unknown WBC RBC Hgb Hct MCHC RDW Lymph % (Auto) [place] % (Auto) Lymph # (Auto) [place] # (Auto) Seg Neutrophils % Seg Neuts % (Manual) Lymphocytes % (Manual) Monocytes % (Manual) Nucleated RBC % Seg Neutrophils # Seg Neutrophils # Man Lymphocytes # (Manual) Monocytes # (Manual) PT INR D-Dimer ABG pH POC ABG pCO2 POC ABG pO2 ABG pO2 ABG HCO3 ABG Base Excess ABG Hemoglobin ABG Oxyhemoglobin ABG Sodium ABG Potassium ABG Chloride ABG Glucose Carboxyhemoglobin Sodium Potassium 5.3 H D Chloride Carbon Dioxide BUN Creatinine Glucose POC Glucose 158 H Lactic Acid Calcium Phosphorus Ferritin Total Bilirubin Direct Bilirubin AST ALT Lactate Dehydrogenase Total Creatine Kinase Troponin T Total Protein Albumin Triglycerides Arterial Blood Glucose Arterial Blood Ionized Calcium Urine pH Urine Creatinine Salicylates Acetaminophen Coronavirus (PCR) Positive A 09/08/20 09/08/20 09/08/20 Unknown Unknown Unknown WBC 18.4 H RBC Hgb 10.1 L Hct 32.0 L MCHC RDW 18.2 H Lymph % (Auto) [place] % (Auto) Lymph # (Auto) [place] # (Auto) Seg Neutrophils % Seg Neuts % (Manual) 81.0 H Lymphocytes % (Manual) 2.0 L Monocytes % (Manual) Nucleated RBC % 1.0 H Seg Neutrophils # Seg Neutrophils # Man 14.9 H Lymphocytes # (Manual) 0.4 L Monocytes # (Manual) 1.1 H PT 21.2 H INR 1.83 H D-Dimer ABG pH POC ABG pCO2 POC ABG pO2 ABG pO2 ABG HCO3 ABG Base Excess ABG Hemoglobin ABG Oxyhemoglobin ABG Sodium ABG Potassium ABG Chloride ABG Glucose Carboxyhemoglobin Sodium Potassium Chloride Carbon Dioxide BUN Creatinine Glucose POC Glucose Lactic Acid Calcium Phosphorus Ferritin Total Bilirubin Direct Bilirubin AST ALT Lactate Dehydrogenase Total Creatine Kinase Troponin T Total Protein Albumin Triglycerides Arterial Blood Glucose Arterial Blood Ionized Calcium Urine pH Urine Creatinine 182.4 H Salicylates Acetaminophen Coronavirus (PCR) 09/09/20 09/09/20 09/09/20 03:14 04:20 04:20 WBC 16.3 H RBC 3.12 L Hgb 8.6 L Hct 26.8 L MCHC RDW 18.2 H Lymph % (Auto) 6.3 L [place] % (Auto) 8.8 H Lymph # (Auto) 1.0 L [place] # (Auto) 1.4 H Seg Neutrophils % 84.5 H Seg Neuts % (Manual) Lymphocytes % (Manual) Monocytes % (Manual) Nucleated RBC % Seg Neutrophils # 13.7 H Seg Neutrophils # Man Lymphocytes # (Manual) Monocytes # (Manual) PT INR D-Dimer ABG pH POC ABG pCO2 POC ABG pO2 148.5 H ABG pO2 ABG HCO3 ABG Base Excess ABG Hemoglobin 9.4 L ABG Oxyhemoglobin 98.8 H ABG Sodium 134.8 L ABG Potassium 5.0 H ABG Chloride ABG Glucose 222 H Carboxyhemoglobin 0.1 L Sodium Potassium 5.2 H Chloride Carbon Dioxide BUN 47 H Creatinine 4.3 H Glucose 211 H POC Glucose Lactic Acid Calcium 7.4 L Phosphorus Ferritin Total Bilirubin Direct Bilirubin AST 04445 H ALT 6206 H Lactate Dehydrogenase Total Creatine Kinase Troponin T Total Protein 5.6 L Albumin 3.0 L Triglycerides Arterial Blood Glucose 222 H Arterial Blood Ionized Calcium 3.8 L Urine pH Urine Creatinine Salicylates Acetaminophen Coronavirus (PCR) 09/09/20 09/09/20 09/09/20 10:00 12:23 18:22 WBC RBC Hgb Hct MCHC RDW Lymph % (Auto) [place] % (Auto) Lymph # (Auto) [place] # (Auto) Seg Neutrophils % Seg Neuts % (Manual) Lymphocytes % (Manual) Monocytes % (Manual) Nucleated RBC % Seg Neutrophils # Seg Neutrophils # Man Lymphocytes # (Manual) Monocytes # (Manual) PT 21.7 H INR 1.90 H D-Dimer ABG pH POC ABG pCO2 POC ABG pO2 ABG pO2 ABG HCO3 ABG Base Excess ABG Hemoglobin ABG Oxyhemoglobin ABG Sodium ABG Potassium ABG Chloride ABG Glucose Carboxyhemoglobin Sodium Potassium Chloride Carbon Dioxide BUN Creatinine Glucose POC Glucose 216 H 211 H Lactic Acid Calcium Phosphorus Ferritin Total Bilirubin Direct Bilirubin AST ALT Lactate Dehydrogenase Total Creatine Kinase Troponin T Total Protein Albumin Triglycerides Arterial Blood Glucose Arterial Blood Ionized Calcium Urine pH Urine Creatinine Salicylates Acetaminophen Coronavirus (PCR) 09/10/20 09/10/20 09/10/20 04:00 04:05 04:05 WBC 15.0 H RBC 3.06 L Hgb 8.6 L Hct 25.8 L MCHC RDW 18.0 H Lymph % (Auto) [place] % (Auto) Lymph # (Auto) [place] # (Auto) Seg Neutrophils % Seg Neuts % (Manual) 86.0 H Lymphocytes % (Manual) 6.0 L Monocytes % (Manual) 8.0 H Nucleated RBC % Seg Neutrophils # Seg Neutrophils # Man 12.9 H Lymphocytes # (Manual) 0.9 L Monocytes # (Manual) 1.2 H PT 18.4 H INR 1.54 H D-Dimer ABG pH POC ABG pCO2 POC ABG pO2 ABG pO2 ABG HCO3 ABG Base Excess ABG Hemoglobin ABG Oxyhemoglobin ABG Sodium ABG Potassium ABG Chloride ABG Glucose Carboxyhemoglobin Sodium 134 L Potassium Chloride 93.7 L Carbon Dioxide BUN 46 H Creatinine 3.6 H Glucose 275 H POC Glucose Lactic Acid Calcium 7.7 L Phosphorus Ferritin Total Bilirubin 1.30 H Direct Bilirubin AST 5899 H ALT 6440 H Lactate Dehydrogenase Total Creatine Kinase Troponin T Total Protein 5.9 L Albumin 3.3 L Triglycerides Arterial Blood Glucose Arterial Blood Ionized Calcium Urine pH Urine Creatinine Salicylates Acetaminophen Coronavirus (PCR) 09/10/20 09/10/20 09/10/20 04:35 12:06 17:42 WBC RBC Hgb Hct MCHC RDW Lymph % (Auto) [place] % (Auto) Lymph # (Auto) [place] # (Auto) Seg Neutrophils % Seg Neuts % (Manual) Lymphocytes % (Manual) Monocytes % (Manual) Nucleated RBC % Seg Neutrophils # Seg Neutrophils # Man Lymphocytes # (Manual) Monocytes # (Manual) PT INR D-Dimer ABG pH 7.464 H POC ABG pCO2 POC ABG pO2 ABG pO2 ABG HCO3 ABG Base Excess ABG Hemoglobin 9.9 L ABG Oxyhemoglobin ABG Sodium 131.6 L ABG Potassium ABG Chloride 97.0 L ABG Glucose 281 H Carboxyhemoglobin 0.1 L Sodium Potassium Chloride Carbon Dioxide BUN Creatinine Glucose POC Glucose 298 H 340 H Lactic Acid Calcium Phosphorus Ferritin Total Bilirubin Direct Bilirubin AST ALT Lactate Dehydrogenase Total Creatine Kinase Troponin T Total Protein Albumin Triglycerides Arterial Blood Glucose 281 H Arterial Blood Ionized Calcium 3.9 L Urine pH Urine Creatinine Salicylates Acetaminophen Coronavirus (PCR) 09/10/20 09/11/20 09/11/20 23:07 04:44 05:17 WBC RBC Hgb Hct MCHC RDW Lymph % (Auto) [place] % (Auto) Lymph # (Auto) [place] # (Auto) Seg Neutrophils % Seg Neuts % (Manual) Lymphocytes % (Manual) Monocytes % (Manual) Nucleated RBC % Seg Neutrophils # Seg Neutrophils # Man Lymphocytes # (Manual) Monocytes # (Manual) PT 16.9 H INR 1.39 H D-Dimer ABG pH POC ABG pCO2 POC ABG pO2 ABG pO2 ABG HCO3 ABG Base Excess ABG Hemoglobin ABG Oxyhemoglobin ABG Sodium ABG Potassium ABG Chloride ABG Glucose Carboxyhemoglobin Sodium Potassium Chloride Carbon Dioxide BUN Creatinine Glucose POC Glucose 367 H 416 H Lactic Acid Calcium Phosphorus Ferritin Total Bilirubin Direct Bilirubin AST ALT Lactate Dehydrogenase Total Creatine Kinase Troponin T Total Protein Albumin Triglycerides Arterial Blood Glucose Arterial Blood Ionized Calcium Urine pH Urine Creatinine Salicylates Acetaminophen Coronavirus (PCR) 09/11/20 09/11/20 09/11/20 05:40 12:01 17:50 WBC RBC Hgb Hct MCHC RDW Lymph % (Auto) [place] % (Auto) Lymph # (Auto) [place] # (Auto) Seg Neutrophils % Seg Neuts % (Manual) Lymphocytes % (Manual) Monocytes % (Manual) Nucleated RBC % Seg Neutrophils # Seg Neutrophils # Man Lymphocytes # (Manual) Monocytes # (Manual) PT INR D-Dimer ABG pH 7.543 H POC ABG pCO2 POC ABG pO2 ABG pO2 112.1 H ABG HCO3 28.1 H ABG Base Excess 5.4 H ABG Hemoglobin 8.4 L ABG Oxyhemoglobin ABG Sodium ABG Potassium ABG Chloride ABG Glucose Carboxyhemoglobin Sodium Potassium Chloride Carbon Dioxide BUN Creatinine Glucose POC Glucose 418 H 404 H Lactic Acid Calcium Phosphorus Ferritin Total Bilirubin Direct Bilirubin AST ALT Lactate Dehydrogenase Total Creatine Kinase Troponin T Total Protein Albumin Triglycerides Arterial Blood Glucose Arterial Blood Ionized Calcium Urine pH Urine Creatinine Salicylates Acetaminophen Coronavirus (PCR) 09/11/20 09/11/20 09/12/20 23:10 23:43 03:15 WBC RBC Hgb Hct MCHC RDW Lymph % (Auto) [place] % (Auto) Lymph # (Auto) [place] # (Auto) Seg Neutrophils % Seg Neuts % (Manual) Lymphocytes % (Manual) Monocytes % (Manual) Nucleated RBC % Seg Neutrophils # Seg Neutrophils # Man Lymphocytes # (Manual) Monocytes # (Manual) PT INR D-Dimer ABG pH POC ABG pCO2 POC ABG pO2 ABG pO2 ABG HCO3 ABG Base Excess ABG Hemoglobin ABG Oxyhemoglobin ABG Sodium ABG Potassium ABG Chloride ABG Glucose Carboxyhemoglobin Sodium 135 L Potassium Chloride 92.3 L Carbon Dioxide BUN 62 H Creatinine 3.7 H Glucose 406 H POC Glucose 372 H 359 H Lactic Acid Calcium Phosphorus Ferritin Total Bilirubin Direct Bilirubin AST 687 H ALT 3701 H Lactate Dehydrogenase Total Creatine Kinase Troponin T Total Protein 5.8 L Albumin 3.1 L Triglycerides Arterial Blood Glucose Arterial Blood Ionized Calcium Urine pH Urine Creatinine Salicylates Acetaminophen Coronavirus (PCR) 09/12/20 09/12/20 09/12/20 03:18 04:00 04:00 WBC 13.7 H RBC 3.30 L Hgb 9.3 L Hct 27.6 L MCHC RDW 17.5 H Lymph % (Auto) [place] % (Auto) Lymph # (Auto) [place] # (Auto) Seg Neutrophils % Seg Neuts % (Manual) 76.0 H Lymphocytes % (Manual) 11.0 L Monocytes % (Manual) 13.0 H Nucleated RBC % Seg Neutrophils # Seg Neutrophils # Man 10.4 H Lymphocytes # (Manual) Monocytes # (Manual) 1.8 H PT 16.1 H INR 1.31 H D-Dimer ABG pH 7.558 H POC ABG pCO2 POC ABG pO2 74.7 L ABG pO2 ABG HCO3 ABG Base Excess ABG Hemoglobin 9.7 L ABG Oxyhemoglobin ABG Sodium 132.4 L ABG Potassium ABG Chloride 95.0 L ABG Glucose 437 H Carboxyhemoglobin Sodium Potassium Chloride Carbon Dioxide BUN Creatinine Glucose POC Glucose Lactic Acid Calcium Phosphorus Ferritin Total Bilirubin Direct Bilirubin AST ALT Lactate Dehydrogenase Total Creatine Kinase Troponin T Total Protein Albumin Triglycerides Arterial Blood Glucose 437 H Arterial Blood Ionized Calcium 4.3 L Urine pH Urine Creatinine Salicylates Acetaminophen Coronavirus (PCR) 09/12/20 09/12/20 09/12/20 04:21 05:20 06:37 WBC RBC Hgb Hct MCHC RDW Lymph % (Auto) [place] % (Auto) Lymph # (Auto) [place] # (Auto) Seg Neutrophils % Seg Neuts % (Manual) Lymphocytes % (Manual) Monocytes % (Manual) Nucleated RBC % Seg Neutrophils # Seg Neutrophils # Man Lymphocytes # (Manual) Monocytes # (Manual) PT INR D-Dimer ABG pH POC ABG pCO2 POC ABG pO2 ABG pO2 ABG HCO3 ABG Base Excess ABG Hemoglobin ABG Oxyhemoglobin ABG Sodium ABG Potassium ABG Chloride ABG Glucose Carboxyhemoglobin Sodium Potassium Chloride Carbon Dioxide BUN Creatinine Glucose POC Glucose 417 H 397 H 370 H Lactic Acid Calcium Phosphorus Ferritin Total Bilirubin Direct Bilirubin AST ALT Lactate Dehydrogenase Total Creatine Kinase Troponin T Total Protein Albumin Triglycerides Arterial Blood Glucose Arterial Blood Ionized Calcium Urine pH Urine Creatinine Salicylates Acetaminophen Coronavirus (PCR) 09/12/20 09/12/20 09/12/20 11:56 17:14 21:52 WBC RBC Hgb Hct MCHC RDW Lymph % (Auto) [place] % (Auto) Lymph # (Auto) [place] # (Auto) Seg Neutrophils % Seg Neuts % (Manual) Lymphocytes % (Manual) Monocytes % (Manual) Nucleated RBC % Seg Neutrophils # Seg Neutrophils # Man Lymphocytes # (Manual) Monocytes # (Manual) PT INR D-Dimer ABG pH POC ABG pCO2 POC ABG pO2 ABG pO2 ABG HCO3 ABG Base Excess ABG Hemoglobin ABG Oxyhemoglobin ABG Sodium ABG Potassium ABG Chloride ABG Glucose Carboxyhemoglobin Sodium Potassium Chloride Carbon Dioxide BUN Creatinine Glucose POC Glucose 341 H 325 H 285 H Lactic Acid Calcium Phosphorus Ferritin Total Bilirubin Direct Bilirubin AST ALT Lactate Dehydrogenase Total Creatine Kinase Troponin T Total Protein Albumin Triglycerides Arterial Blood Glucose Arterial Blood Ionized Calcium Urine pH Urine Creatinine Salicylates Acetaminophen Coronavirus (PCR) 09/12/20 09/12/20 09/12/20 23:39 Unknown Unknown WBC RBC Hgb Hct MCHC RDW Lymph % (Auto) [place] % (Auto) Lymph # (Auto) [place] # (Auto) Seg Neutrophils % Seg Neuts % (Manual) Lymphocytes % (Manual) Monocytes % (Manual) Nucleated RBC % Seg Neutrophils # Seg Neutrophils # Man Lymphocytes # (Manual) Monocytes # (Manual) PT INR D-Dimer ABG pH POC ABG pCO2 POC ABG pO2 ABG pO2 ABG HCO3 ABG Base Excess ABG Hemoglobin ABG Oxyhemoglobin ABG Sodium ABG Potassium ABG Chloride ABG Glucose Carboxyhemoglobin Sodium 135 L Potassium Chloride 92.2 L Carbon Dioxide BUN 65 H Creatinine 3.5 H Glucose 418 H POC Glucose 338 H Lactic Acid Calcium Phosphorus Ferritin Total Bilirubin Direct Bilirubin AST 553 H ALT 3453 H Lactate Dehydrogenase Total Creatine Kinase Troponin T Total Protein 5.9 L Albumin 3.0 L Triglycerides 220 H Arterial Blood Glucose Arterial Blood Ionized Calcium Urine pH Urine Creatinine Salicylates Acetaminophen Coronavirus (PCR) 09/13/20 09/13/20 09/13/20 04:47 05:24 10:50 WBC RBC Hgb Hct MCHC RDW Lymph % (Auto) [place] % (Auto) Lymph # (Auto) [place] # (Auto) Seg Neutrophils % Seg Neuts % (Manual) Lymphocytes % (Manual) Monocytes % (Manual) Nucleated RBC % Seg Neutrophils # Seg Neutrophils # Man Lymphocytes # (Manual) Monocytes # (Manual) PT INR D-Dimer ABG pH 7.571 H POC ABG pCO2 POC ABG pO2 69.0 L ABG pO2 ABG HCO3 ABG Base Excess ABG Hemoglobin 10.1 L ABG Oxyhemoglobin 93.2 L ABG Sodium 134.0 L ABG Potassium ABG Chloride ABG Glucose 365 H Carboxyhemoglobin 0.4 L Sodium Potassium Chloride 96.6 L Carbon Dioxide 32 H BUN 76 H Creatinine 3.1 H Glucose 395 H POC Glucose 329 H Lactic Acid Calcium Phosphorus Ferritin Total Bilirubin Direct Bilirubin AST ALT Lactate Dehydrogenase Total Creatine Kinase Troponin T Total Protein Albumin Triglycerides Arterial Blood Glucose 365 H Arterial Blood Ionized Calcium Urine pH Urine Creatinine Salicylates Acetaminophen Coronavirus (PCR) 09/13/20 09/13/20 09/13/20 11:39 17:48 23:35 WBC RBC Hgb Hct MCHC RDW Lymph % (Auto) [place] % (Auto) Lymph # (Auto) [place] # (Auto) Seg Neutrophils % Seg Neuts % (Manual) Lymphocytes % (Manual) Monocytes % (Manual) Nucleated RBC % Seg Neutrophils # Seg Neutrophils # Man Lymphocytes # (Manual) Monocytes # (Manual) PT INR D-Dimer ABG pH POC ABG pCO2 POC ABG pO2 ABG pO2 ABG HCO3 ABG Base Excess ABG Hemoglobin ABG Oxyhemoglobin ABG Sodium ABG Potassium ABG Chloride ABG Glucose Carboxyhemoglobin Sodium Potassium Chloride Carbon Dioxide BUN Creatinine Glucose POC Glucose 344 H 286 H 223 H Lactic Acid Calcium Phosphorus Ferritin Total Bilirubin Direct Bilirubin AST ALT Lactate Dehydrogenase Total Creatine Kinase Troponin T Total Protein Albumin Triglycerides Arterial Blood Glucose Arterial Blood Ionized Calcium Urine pH Urine Creatinine Salicylates Acetaminophen Coronavirus (PCR) 09/14/20 09/14/20 09/14/20 03:54 05:34 10:27 WBC RBC Hgb Hct MCHC RDW Lymph % (Auto) [place] % (Auto) Lymph # (Auto) [place] # (Auto) Seg Neutrophils % Seg Neuts % (Manual) Lymphocytes % (Manual) Monocytes % (Manual) Nucleated RBC % Seg Neutrophils # Seg Neutrophils # Man Lymphocytes # (Manual) Monocytes # (Manual) PT INR D-Dimer ABG pH POC ABG pCO2 POC ABG pO2 71.1 L ABG pO2 ABG HCO3 ABG Base Excess ABG Hemoglobin 10.3 L ABG Oxyhemoglobin ABG Sodium 135.2 L ABG Potassium ABG Chloride ABG Glucose 281 H Carboxyhemoglobin Sodium Potassium Chloride 96.6 L Carbon Dioxide BUN 100 H Creatinine 3.9 H Glucose 286 H POC Glucose 252 H Lactic Acid Calcium Phosphorus Ferritin Total Bilirubin Direct Bilirubin AST 145 H ALT 1400 H Lactate Dehydrogenase Total Creatine Kinase Troponin T Total Protein 5.6 L Albumin 2.9 L Triglycerides Arterial Blood Glucose 281 H Arterial Blood Ionized Calcium Urine pH Urine Creatinine Salicylates Acetaminophen Coronavirus (PCR) 09/14/20 09/14/20 09/14/20 11:38 17:52 23:07 WBC RBC Hgb Hct MCHC RDW Lymph % (Auto) [place] % (Auto) Lymph # (Auto) [place] # (Auto) Seg Neutrophils % Seg Neuts % (Manual) Lymphocytes % (Manual) Monocytes % (Manual) Nucleated RBC % Seg Neutrophils # Seg Neutrophils # Man Lymphocytes # (Manual) Monocytes # (Manual) PT INR D-Dimer ABG pH POC ABG pCO2 POC ABG pO2 ABG pO2 ABG HCO3 ABG Base Excess ABG Hemoglobin ABG Oxyhemoglobin ABG Sodium ABG Potassium ABG Chloride ABG Glucose Carboxyhemoglobin Sodium Potassium Chloride Carbon Dioxide BUN Creatinine Glucose POC Glucose 247 H 247 H 256 H Lactic Acid Calcium Phosphorus Ferritin Total Bilirubin Direct Bilirubin AST ALT Lactate Dehydrogenase Total Creatine Kinase Troponin T Total Protein Albumin Triglycerides Arterial Blood Glucose Arterial Blood Ionized Calcium Urine pH Urine Creatinine Salicylates Acetaminophen Coronavirus (PCR) 09/15/20 09/15/20 09/15/20 04:54 11:24 17:48 WBC RBC Hgb Hct MCHC RDW Lymph % (Auto) [place] % (Auto) Lymph # (Auto) [place] # (Auto) Seg Neutrophils % Seg Neuts % (Manual) Lymphocytes % (Manual) Monocytes % (Manual) Nucleated RBC % Seg Neutrophils # Seg Neutrophils # Man Lymphocytes # (Manual) Monocytes # (Manual) PT INR D-Dimer ABG pH POC ABG pCO2 POC ABG pO2 ABG pO2 ABG HCO3 ABG Base Excess ABG Hemoglobin ABG Oxyhemoglobin ABG Sodium ABG Potassium ABG Chloride ABG Glucose Carboxyhemoglobin Sodium Potassium Chloride Carbon Dioxide BUN Creatinine Glucose POC Glucose 271 H 228 H 254 H Lactic Acid Calcium Phosphorus Ferritin Total Bilirubin Direct Bilirubin AST ALT Lactate Dehydrogenase Total Creatine Kinase Troponin T Total Protein Albumin Triglycerides Arterial Blood Glucose Arterial Blood Ionized Calcium Urine pH Urine Creatinine Salicylates Acetaminophen Coronavirus (PCR) 09/15/20 09/15/20 09/15/20 19:20 19:20 23:13 WBC 27.3 H RBC 3.16 L Hgb 8.8 L Hct 27.0 L MCHC RDW 19.7 H Lymph % (Auto) [place] % (Auto) Lymph # (Auto) [place] # (Auto) Seg Neutrophils % Seg Neuts % (Manual) 81.0 H Lymphocytes % (Manual) 9.0 L Monocytes % (Manual) 10.0 H Nucleated RBC % Seg Neutrophils # Seg Neutrophils # Man 22.1 H Lymphocytes # (Manual) Monocytes # (Manual) 2.7 H PT INR D-Dimer ABG pH POC ABG pCO2 POC ABG pO2 ABG pO2 ABG HCO3 ABG Base Excess ABG Hemoglobin ABG Oxyhemoglobin ABG Sodium ABG Potassium ABG Chloride ABG Glucose Carboxyhemoglobin Sodium Potassium Chloride Carbon Dioxide BUN 68 H Creatinine 2.8 H Glucose 288 H POC Glucose 259 H Lactic Acid Calcium Phosphorus Ferritin Total Bilirubin Direct Bilirubin AST ALT Lactate Dehydrogenase Total Creatine Kinase Troponin T Total Protein Albumin Triglycerides Arterial Blood Glucose Arterial Blood Ionized Calcium Urine pH Urine Creatinine Salicylates Acetaminophen Coronavirus (PCR) 09/16/20 09/16/20 09/16/20 05:27 09:40 11:48 WBC RBC Hgb Hct MCHC RDW Lymph % (Auto) [place] % (Auto) Lymph # (Auto) [place] # (Auto) Seg Neutrophils % Seg Neuts % (Manual) Lymphocytes % (Manual) Monocytes % (Manual) Nucleated RBC % Seg Neutrophils # Seg Neutrophils # Man Lymphocytes # (Manual) Monocytes # (Manual) PT INR D-Dimer ABG pH POC ABG pCO2 POC ABG pO2 ABG pO2 ABG HCO3 ABG Base Excess ABG Hemoglobin ABG Oxyhemoglobin ABG Sodium ABG Potassium ABG Chloride ABG Glucose Carboxyhemoglobin Sodium Potassium Chloride Carbon Dioxide 31 H BUN 77 H Creatinine 2.9 H Glucose 250 H POC Glucose 275 H 234 H Lactic Acid Calcium Phosphorus Ferritin Total Bilirubin Direct Bilirubin AST ALT Lactate Dehydrogenase Total Creatine Kinase Troponin T Total Protein Albumin Triglycerides Arterial Blood Glucose Arterial Blood Ionized Calcium Urine pH Urine Creatinine Salicylates Acetaminophen Coronavirus (PCR) 09/16/20 09/16/20 09/17/20 17:40 23:23 00:01 WBC RBC Hgb Hct MCHC RDW Lymph % (Auto) [place] % (Auto) Lymph # (Auto) [place] # (Auto) Seg Neutrophils % Seg Neuts % (Manual) Lymphocytes % (Manual) Monocytes % (Manual) Nucleated RBC % Seg Neutrophils # Seg Neutrophils # Man Lymphocytes # (Manual) Monocytes # (Manual) PT INR D-Dimer ABG pH POC ABG pCO2 POC ABG pO2 ABG pO2 ABG HCO3 ABG Base Excess ABG Hemoglobin ABG Oxyhemoglobin ABG Sodium ABG Potassium ABG Chloride ABG Glucose Carboxyhemoglobin Sodium Potassium Chloride Carbon Dioxide BUN Creatinine Glucose POC Glucose 172 H 161 H Lactic Acid 2.10 H* Calcium Phosphorus Ferritin Total Bilirubin Direct Bilirubin AST ALT Lactate Dehydrogenase Total Creatine Kinase Troponin T Total Protein Albumin Triglycerides Arterial Blood Glucose Arterial Blood Ionized Calcium Urine pH Urine Creatinine Salicylates Acetaminophen Coronavirus (PCR) 09/17/20 09/17/20 09/17/20 04:00 04:00 05:09 WBC 19.5 H RBC 3.03 L Hgb 8.6 L Hct 26.3 L MCHC RDW 19.4 H Lymph % (Auto) 8.7 L [place] % (Auto) 13.7 H Lymph # (Auto) [place] # (Auto) 2.7 H Seg Neutrophils % 76.9 H Seg Neuts % (Manual) Lymphocytes % (Manual) Monocytes % (Manual) Nucleated RBC % Seg Neutrophils # 15.0 H Seg Neutrophils # Man Lymphocytes # (Manual) Monocytes # (Manual) PT INR D-Dimer ABG pH POC ABG pCO2 POC ABG pO2 ABG pO2 ABG HCO3 ABG Base Excess ABG Hemoglobin ABG Oxyhemoglobin ABG Sodium ABG Potassium ABG Chloride ABG Glucose Carboxyhemoglobin Sodium 146 H Potassium 3.1 L Chloride Carbon Dioxide BUN 79 H Creatinine 2.6 H Glucose 122 H POC Glucose 116 H Lactic Acid Calcium Phosphorus Ferritin Total Bilirubin Direct Bilirubin AST 64 H ALT 516 H Lactate Dehydrogenase Total Creatine Kinase Troponin T Total Protein 5.7 L Albumin 2.8 L Triglycerides Arterial Blood Glucose Arterial Blood Ionized Calcium Urine pH Urine Creatinine Salicylates Acetaminophen Coronavirus (PCR) 09/17/20 09/17/20 09/18/20 13:52 17:38 05:16 WBC RBC Hgb Hct MCHC RDW Lymph % (Auto) [place] % (Auto) Lymph # (Auto) [place] # (Auto) Seg Neutrophils % Seg Neuts % (Manual) Lymphocytes % (Manual) Monocytes % (Manual) Nucleated RBC % Seg Neutrophils # Seg Neutrophils # Man Lymphocytes # (Manual) Monocytes # (Manual) PT INR D-Dimer ABG pH POC ABG pCO2 POC ABG pO2 ABG pO2 ABG HCO3 ABG Base Excess ABG Hemoglobin ABG Oxyhemoglobin ABG Sodium ABG Potassium ABG Chloride ABG Glucose Carboxyhemoglobin Sodium Potassium Chloride Carbon Dioxide BUN Creatinine Glucose POC Glucose 68 L 126 H Lactic Acid 2.90 H* Calcium Phosphorus Ferritin Total Bilirubin Direct Bilirubin AST ALT Lactate Dehydrogenase Total Creatine Kinase Troponin T Total Protein Albumin Triglycerides Arterial Blood Glucose Arterial Blood Ionized Calcium Urine pH Urine Creatinine Salicylates Acetaminophen Coronavirus (PCR) 09/18/20 09/18/20 09/18/20 05:30 05:30 11:42 WBC 18.2 H RBC 3.18 L Hgb 9.0 L Hct 27.2 L MCHC RDW 18.8 H Lymph % (Auto) [place] % (Auto) Lymph # (Auto) [place] # (Auto) Seg Neutrophils % Seg Neuts % (Manual) Lymphocytes % (Manual) Monocytes % (Manual) Nucleated RBC % Seg Neutrophils # Seg Neutrophils # Man Lymphocytes # (Manual) Monocytes # (Manual) PT INR D-Dimer ABG pH POC ABG pCO2 POC ABG pO2 ABG pO2 ABG HCO3 ABG Base Excess ABG Hemoglobin ABG Oxyhemoglobin ABG Sodium ABG Potassium ABG Chloride ABG Glucose Carboxyhemoglobin Sodium Potassium 3.1 L Chloride Carbon Dioxide BUN 73 H Creatinine 2.6 H Glucose 154 H POC Glucose 140 H Lactic Acid Calcium Phosphorus Ferritin Total Bilirubin Direct Bilirubin AST ALT Lactate Dehydrogenase Total Creatine Kinase Troponin T Total Protein Albumin Triglycerides Arterial Blood Glucose Arterial Blood Ionized Calcium Urine pH Urine Creatinine Salicylates Acetaminophen Coronavirus (PCR) 09/18/20 09/18/20 09/19/20 18:15 23:37 05:13 WBC 22.8 H RBC 3.30 L Hgb 9.2 L Hct 28.1 L MCHC RDW 18.2 H Lymph % (Auto) [place] % (Auto) Lymph # (Auto) [place] # (Auto) Seg Neutrophils % Seg Neuts % (Manual) 87.0 H Lymphocytes % (Manual) 5.0 L Monocytes % (Manual) Nucleated RBC % Seg Neutrophils # Seg Neutrophils # Man 19.8 H Lymphocytes # (Manual) 1.1 L Monocytes # (Manual) 1.6 H PT INR D-Dimer ABG pH POC ABG pCO2 POC ABG pO2 ABG pO2 ABG HCO3 ABG Base Excess ABG Hemoglobin ABG Oxyhemoglobin ABG Sodium ABG Potassium ABG Chloride ABG Glucose Carboxyhemoglobin Sodium Potassium Chloride Carbon Dioxide BUN Creatinine Glucose POC Glucose 149 H 153 H Lactic Acid Calcium Phosphorus Ferritin Total Bilirubin Direct Bilirubin AST ALT Lactate Dehydrogenase Total Creatine Kinase Troponin T Total Protein Albumin Triglycerides Arterial Blood Glucose Arterial Blood Ionized Calcium Urine pH Urine Creatinine Salicylates Acetaminophen Coronavirus (PCR) 09/19/20 09/19/20 09/19/20 05:13 05:25 11:56 WBC RBC Hgb Hct MCHC RDW Lymph % (Auto) [place] % (Auto) Lymph # (Auto) [place] # (Auto) Seg Neutrophils % Seg Neuts % (Manual) Lymphocytes % (Manual) Monocytes % (Manual) Nucleated RBC % Seg Neutrophils # Seg Neutrophils # Man Lymphocytes # (Manual) Monocytes # (Manual) PT INR D-Dimer ABG pH POC ABG pCO2 POC ABG pO2 ABG pO2 ABG HCO3 ABG Base Excess ABG Hemoglobin ABG Oxyhemoglobin ABG Sodium ABG Potassium ABG Chloride ABG Glucose Carboxyhemoglobin Sodium Potassium Chloride Carbon Dioxide BUN 55 H Creatinine 2.3 H Glucose 196 H POC Glucose 168 H 137 H Lactic Acid Calcium Phosphorus Ferritin Total Bilirubin Direct Bilirubin AST ALT Lactate Dehydrogenase Total Creatine Kinase Troponin T Total Protein Albumin Triglycerides Arterial Blood Glucose Arterial Blood Ionized Calcium Urine pH Urine Creatinine Salicylates Acetaminophen Coronavirus (PCR) 09/19/20 09/19/20 09/20/20 17:43 23:43 05:02 WBC RBC Hgb Hct MCHC RDW Lymph % (Auto) [place] % (Auto) Lymph # (Auto) [place] # (Auto) Seg Neutrophils % Seg Neuts % (Manual) Lymphocytes % (Manual) Monocytes % (Manual) Nucleated RBC % Seg Neutrophils # Seg Neutrophils # Man Lymphocytes # (Manual) Monocytes # (Manual) PT INR D-Dimer ABG pH POC ABG pCO2 POC ABG pO2 ABG pO2 ABG HCO3 ABG Base Excess ABG Hemoglobin ABG Oxyhemoglobin ABG Sodium ABG Potassium ABG Chloride ABG Glucose Carboxyhemoglobin Sodium Potassium Chloride Carbon Dioxide BUN Creatinine Glucose POC Glucose 114 H 136 H 163 H Lactic Acid Calcium Phosphorus Ferritin Total Bilirubin Direct Bilirubin AST ALT Lactate Dehydrogenase Total Creatine Kinase Troponin T Total Protein Albumin Triglycerides Arterial Blood Glucose Arterial Blood Ionized Calcium Urine pH Urine Creatinine Salicylates Acetaminophen Coronavirus (PCR) 09/20/20 09/20/20 09/20/20 05:36 05:36 11:10 WBC 20.1 H RBC 3.07 L Hgb 8.5 L Hct 26.4 L MCHC RDW 18.6 H Lymph % (Auto) 9.6 L [place] % (Auto) 9.6 H Lymph # (Auto) [place] # (Auto) 1.9 H Seg Neutrophils % 79.0 H Seg Neuts % (Manual) Lymphocytes % (Manual) Monocytes % (Manual) Nucleated RBC % Seg Neutrophils # 15.9 H Seg Neutrophils # Man Lymphocytes # (Manual) Monocytes # (Manual) PT INR D-Dimer ABG pH POC ABG pCO2 POC ABG pO2 ABG pO2 ABG HCO3 ABG Base Excess ABG Hemoglobin ABG Oxyhemoglobin ABG Sodium ABG Potassium ABG Chloride ABG Glucose Carboxyhemoglobin Sodium Potassium 3.3 L Chloride Carbon Dioxide BUN 76 H Creatinine 3.6 H D Glucose 213 H POC Glucose 167 H Lactic Acid Calcium Phosphorus Ferritin Total Bilirubin Direct Bilirubin AST ALT Lactate Dehydrogenase Total Creatine Kinase Troponin T Total Protein Albumin Triglycerides Arterial Blood Glucose Arterial Blood Ionized Calcium Urine pH Urine Creatinine Salicylates Acetaminophen Coronavirus (PCR) 09/20/20 09/20/20 09/20/20 14:02 17:24 23:30 WBC RBC Hgb Hct MCHC RDW Lymph % (Auto) [place] % (Auto) Lymph # (Auto) [place] # (Auto) Seg Neutrophils % Seg Neuts % (Manual) Lymphocytes % (Manual) Monocytes % (Manual) Nucleated RBC % Seg Neutrophils # Seg Neutrophils # Man Lymphocytes # (Manual) Monocytes # (Manual) PT INR D-Dimer ABG pH POC ABG pCO2 POC ABG pO2 ABG pO2 ABG HCO3 ABG Base Excess ABG Hemoglobin ABG Oxyhemoglobin ABG Sodium ABG Potassium ABG Chloride ABG Glucose Carboxyhemoglobin Sodium Potassium Chloride Carbon Dioxide BUN Creatinine Glucose POC Glucose 164 H 146 H 147 H Lactic Acid Calcium Phosphorus Ferritin Total Bilirubin Direct Bilirubin AST ALT Lactate Dehydrogenase Total Creatine Kinase Troponin T Total Protein Albumin Triglycerides Arterial Blood Glucose Arterial Blood Ionized Calcium Urine pH Urine Creatinine Salicylates Acetaminophen Coronavirus (PCR) 09/21/20 09/21/20 09/21/20 05:00 05:00 05:24 WBC 17.4 H RBC 2.95 L Hgb 8.3 L Hct 25.8 L MCHC RDW 19.3 H Lymph % (Auto) 11.1 L [place] % (Auto) 11.1 H Lymph # (Auto) [place] # (Auto) 1.9 H Seg Neutrophils % 75.9 H Seg Neuts % (Manual) Lymphocytes % (Manual) Monocytes % (Manual) Nucleated RBC % Seg Neutrophils # 13.2 H Seg Neutrophils # Man Lymphocytes # (Manual) Monocytes # (Manual) PT INR D-Dimer ABG pH POC ABG pCO2 POC ABG pO2 ABG pO2 ABG HCO3 ABG Base Excess ABG Hemoglobin ABG Oxyhemoglobin ABG Sodium ABG Potassium ABG Chloride ABG Glucose Carboxyhemoglobin Sodium Potassium Chloride Carbon Dioxide BUN 60 H Creatinine 3.5 H Glucose 185 H POC Glucose 139 H Lactic Acid Calcium Phosphorus Ferritin Total Bilirubin Direct Bilirubin AST ALT Lactate Dehydrogenase Total Creatine Kinase Troponin T Total Protein Albumin Triglycerides Arterial Blood Glucose Arterial Blood Ionized Calcium Urine pH Urine Creatinine Salicylates Acetaminophen Coronavirus (PCR) 09/21/20 09/21/20 09/21/20 11:59 17:59 23:32 WBC RBC Hgb Hct MCHC RDW Lymph % (Auto) [place] % (Auto) Lymph # (Auto) [place] # (Auto) Seg Neutrophils % Seg Neuts % (Manual) Lymphocytes % (Manual) Monocytes % (Manual) Nucleated RBC % Seg Neutrophils # Seg Neutrophils # Man Lymphocytes # (Manual) Monocytes # (Manual) PT INR D-Dimer ABG pH POC ABG pCO2 POC ABG pO2 ABG pO2 ABG HCO3 ABG Base Excess ABG Hemoglobin ABG Oxyhemoglobin ABG Sodium ABG Potassium ABG Chloride ABG Glucose Carboxyhemoglobin Sodium Potassium Chloride Carbon Dioxide BUN Creatinine Glucose POC Glucose 183 H 141 H 162 H Lactic Acid Calcium Phosphorus Ferritin Total Bilirubin Direct Bilirubin AST ALT Lactate Dehydrogenase Total Creatine Kinase Troponin T Total Protein Albumin Triglycerides Arterial Blood Glucose Arterial Blood Ionized Calcium Urine pH Urine Creatinine Salicylates Acetaminophen Coronavirus (PCR) 09/22/20 05:32 WBC RBC Hgb Hct MCHC RDW Lymph % (Auto) [place] % (Auto) Lymph # (Auto) [place] # (Auto) Seg Neutrophils % Seg Neuts % (Manual) Lymphocytes % (Manual) Monocytes % (Manual) Nucleated RBC % Seg Neutrophils # Seg Neutrophils # Man Lymphocytes # (Manual) Monocytes # (Manual) PT INR D-Dimer ABG pH POC ABG pCO2 POC ABG pO2 ABG pO2 ABG HCO3 ABG Base Excess ABG Hemoglobin ABG Oxyhemoglobin ABG Sodium ABG Potassium ABG Chloride ABG Glucose Carboxyhemoglobin Sodium Potassium Chloride Carbon Dioxide BUN Creatinine Glucose POC Glucose 172 H Lactic Acid Calcium Phosphorus Ferritin Total Bilirubin Direct Bilirubin AST ALT Lactate Dehydrogenase Total Creatine Kinase Troponin T Total Protein Albumin Triglycerides Arterial Blood Glucose Arterial Blood Ionized Calcium Urine pH Urine Creatinine Salicylates Acetaminophen Coronavirus (PCR)
--- NOTE | 2020-09-22 11:57 | Progress Note ---
Assessment and Plan Impression: * Nonoliguric RYAN secondary to ATN * Severe hyperkalemia - resolved * COVID 19 PNA * s/p OOH cardiac arrest * Acute hypoxic respiratory failure * Seizure activity * Anemia Plan: * Patient is s/p emergent HD - 09/08 * Continue MWF * Check labs daily * Strict I/O * Monitor for renal recovery * Keep MAP > 65 * Vent management per CCM * Steroids per primary team/ID * Dose medications for renal function * Avoid potential nephrotoxins * Prognosis is guarded Subjective Date of service: 09/22/20 Principal diagnosis: Abnormal LFTs, s/p cardiac arrest, acute kidney injury with ATN Interval history: resting in bed today Objective - Exam Narrative Exam: Deferred for PPE conservation and to prevent spread of infection - Vital Signs Vital signs: Vital Signs - 12hr 09/22/20 09/22/20 09/22/20 00:00 01:00 01:10 Temperature Pulse Rate 59 L 59 L 59 L Pulse Rate [ 58 L Apical] Pulse Rate [ 58 L From Monitor] Respiratory 28 H 25 H 28 H Rate Blood Pressure 171/84 167/77 178/78 O2 Sat by Pulse 100 100 100 Oximetry O2 Sat by Pulse Oximetry [ Assessment] 09/22/20 09/22/20 09/22/20 01:20 01:30 01:40 Temperature Pulse Rate 58 L 58 L 58 L Pulse Rate [ Apical] Pulse Rate [ From Monitor] Respiratory 28 H 25 H 19 Rate Blood Pressure 159/81 170/77 163/75 O2 Sat by Pulse 100 100 100 Oximetry O2 Sat by Pulse Oximetry [ Assessment] 09/22/20 09/22/20 09/22/20 01:50 02:00 02:10 Temperature Pulse Rate 57 L 60 58 L Pulse Rate [ Apical] Pulse Rate [ From Monitor] Respiratory 25 H 11 L 26 H Rate Blood Pressure 161/79 169/87 169/76 O2 Sat by Pulse 100 100 100 Oximetry O2 Sat by Pulse Oximetry [ Assessment] 09/22/20 09/22/20 09/22/20 02:20 02:30 02:40 Temperature Pulse Rate 58 L 57 L 58 L Pulse Rate [ Apical] Pulse Rate [ From Monitor] Respiratory 22 21 Rate Blood Pressure 170/79 172/81 167/83 O2 Sat by Pulse 100 100 100 Oximetry O2 Sat by Pulse Oximetry [ Assessment] 02/07/3109/22/20 09/22/20 02:50 03:00 03:10 Temperature Pulse Rate 57 L 58 L 58 L Pulse Rate [ Apical] Pulse Rate [ From Monitor] Respiratory 20 23 26 H Rate Blood Pressure 175/81 171/81 168/87 O2 Sat by Pulse 100 100 100 Oximetry O2 Sat by Pulse Oximetry [ Assessment] 09/22/20 09/22/20 09/22/20 03:20 03:25 03:30 Temperature 98.2 F Pulse Rate 58 L 58 L Pulse Rate [ Apical] Pulse Rate [ From Monitor] Respiratory 30 H 19 Rate Blood Pressure 182/81 177/84 O2 Sat by Pulse 100 100 Oximetry O2 Sat by Pulse Oximetry [ Assessment] 09/22/20 09/22/20 09/22/20 03:45 04:00 05:00 Temperature Pulse Rate 59 L 57 L 60 Pulse Rate [ 58 L Apical] Pulse Rate [ 58 L From Monitor] Respiratory 28 H 31 H Rate Blood Pressure 168/87 173/76 169/81 O2 Sat by Pulse 100 100 100 Oximetry O2 Sat by Pulse Oximetry [ Assessment] 09/22/20 09/22/20 09/22/20 06:00 07:00 08:00 Temperature 98.5 F Pulse Rate 63 65 59 L Pulse Rate [ 58 L Apical] Pulse Rate [ 57 L From Monitor] Respiratory 30 H 30 H 26 H Rate Blood Pressure 170/84 184/85 160/84 O2 Sat by Pulse 100 100 100 Oximetry O2 Sat by Pulse Oximetry [ Assessment] 09/22/20 09/22/20 09/22/20 08:11 08:24 09:00 Temperature Pulse Rate 57 L 60 Pulse Rate [ Apical] Pulse Rate [ From Monitor] Respiratory 30 H Rate Blood Pressure 155/78 162/74 O2 Sat by Pulse 100 100 Oximetry O2 Sat by Pulse 100 Oximetry [ Assessment] 09/22/20 09/22/20 09/22/20 09:30 10:00 11:00 Temperature Pulse Rate 62 65 68 Pulse Rate [ Apical] Pulse Rate [ From Monitor] Respiratory 16 15 25 H Rate Blood Pressure 163/64 181/83 153/83 O2 Sat by Pulse 100 100 100 Oximetry O2 Sat by Pulse Oximetry [ Assessment] - Lab 09/21/20 05:00 09/21/20 05:00 Most recent lab results ABG pH 7.442 (7.320-7.450) 09/14/20 03:54 ABG pCO2 33.4 mm Hg 09/11/20 05:40 ABG pO2 112.1 mm Hg (80.0-90.0) H 09/11/20 05:40 ABG HCO3 28.1 mmol/L (20.0-26.0) H 09/11/20 05:40 ABG O2 Saturation 98.4 % (95.0-99.0) 09/11/20 05:40 Calcium 9.4 mg/dL (8.4-10.2) 09/21/20 05:00 Phosphorus 8.00 mg/dL (2.5-4.5) H 09/08/20 12:02 Magnesium 1.80 mg/dL (1.7-2.3) 09/08/20 12:02 Urine Creatinine 182.4 mg/dL (0.1-20.0) H 09/08/20 Unknown Urine Sodium 40 mmol/L 09/08/20 Unknown Medications & Allergies - Medications Allergies/Adverse Reactions: Allergies No Known Allergies Allergy (Verified 09/21/20 21:00) Verified with , no known drug allergies. Home Medications: Home Medications Medication Instructions Recorded Confirmed Last Taken Type Albuterol Sulfate 60 mcg IH PRN 09/11/20 09/11/20 Unknown History Cholecalciferol (Vitamin D3) 25 tab PO DAILY 09/11/20 09/11/20 Unknown History Cozaar 25 tab PO DAILY 09/11/20 09/11/20 Unknown History HumaLOG 14 unit SQ AC 09/11/20 09/11/20 Unknown History Hydralazine HCl 50 tab PO TID 09/11/20 09/11/20 Unknown History Isosorbide Dinitrate 30 mg PO DAILY 09/11/20 09/11/20 Unknown History Lantus VIAL 54 units SQ HS 09/11/20 09/11/20 Unknown History Lasix 20 tab PO DAILY 09/11/20 09/11/20 Unknown History Nifedipine 30 tab PO DAILY 09/11/20 09/11/20 Unknown History Active Medications: Generic Name Dose Route Start Last Admin Trade Name Freq PRN Reason Stop Dose Admin Acetaminophen 400 mg 09/10/20 20:50 09/14/20 23:38 Acetaminophen 325 Mg/10.15 Ml Oral Liqd Unit Dose PO 400 mg Q4HR PRN Administration Non Cardiac Pain or Temp>100.5 Lipase/Protease/Amylase 1 each 09/09/20 09:40 Lipase 10,500/Protease 25,000/Amylase 43,750 (Units) Dr Armenta FEEDTUBE PRN PRN For Clogged Feeding Tube Famotidine 20 mg 09/20/20 11:00 09/22/20 09:35 Famotidine 20 Mg/2 Ml Inj IV 20 mg DAILY TAYLOR Administration Hydrophilic Ointment 1 applic 09/07/20 13:08 Lip Therapy Vaseline TP Q2HR PRN Dry Lips Sodium Chloride 100 mls @ 999 mls/hr 09/09/20 13:36 Nacl 0.9% IV JAYJAY PRN Hypotension Levetiracetam 1,500 mg/ 115 mls @ 400 mls/hr 09/11/20 10:00 09/22/20 09:35 Dextrose IV 400 mls/hr BID TAYLOR Administration Valproate Sodium 1,000 mg/ 110 mls @ 100 mls/hr 09/14/20 22:00 09/22/20 09:35 Sodium Chloride IV 100 mls/hr Q12HR TAYLOR Administration Insulin Human Lispro 0 unit 09/12/20 12:00 09/22/20 06:13 Insulin Lispro 100 Unit/Ml SUB-Q 3 unit Q6HR TAYLOR Administration Protocol Lansoprazole 30 mg 09/11/20 11:00 09/19/20 22:04 Lansoprazole 30 Mg Solutab FEEDTUBE 30 mg BID TAYLOR Administration Lorazepam 2 mg 09/08/20 00:14 09/14/20 13:36 Lorazepam 2 Mg/Ml Vial IV 2 mg Q4H PRN Administration Seizures Metoclopramide HCl 5 mg 09/22/20 12:00 Metoclopramide 10 Mg/2 Ml Inj IV Q6HR TAYLOR Multi-Ingred Cream/Lotion/Oil/Oint 1 applic 09/07/20 13:08 09/20/20 10:50 Mineral Oil/Petrolatum, White Ophth Oint 3.5 Gm OU 1 applic Q4HR PRN Administration Dry Eye(s) Multivitamins 5 ml 09/09/20 12:00 09/22/20 09:35 Multivitamins 5 Ml Oral Liquid PO 5 ml QDAY TAYLOR Administration Ondansetron HCl 4 mg 09/07/20 17:55 09/19/20 04:00 Ondansetron 4 Mg/2 Ml Inj IV 4 mg Q8H PRN Administration Nausea And Vomiting Senna/Docusate Sodium 2 tab 09/20/20 11:00 Sennosides/Docusate Sodium 8.6/50 Mg Tab PO BID PRN Laxative Effect Simple Syrup 15 ml 09/09/20 09:40 09/17/20 17:43 Simple Syrup 15 Ml FEEDTUBE 15 ml PRN PRN Administration Hypoglycemia Simple Syrup 30 ml 09/09/20 09:40 Simple Syrup 15 Ml FEEDTUBE PRN PRN Hypoglycemia Sodium Bicarbonate 325 mg 09/09/20 09:40 Sodium Bicarbonate 325 Mg Tab FEEDTUBE PRN PRN For Clogged Feeding Tube Sodium Chloride 10 ml 09/07/20 22:00 09/22/20 09:03 Sodium Chloride 0.9% 10 Ml Flush Syringe IV 10 ml BID TAYLOR Administration Sodium Chloride 10 ml 09/07/20 17:55 Sodium Chloride 0.9% 10 Ml Flush Syringe IV PRN PRN LINE FLUSH
[2020-09-22] MEDS: METOCLOPRAMIDE 10 MG/2 ML INJ IV SCH ×2 (12:49→18:14)
--- NOTE | 2020-09-22 15:51 | Progress Note ---
Assessment and Plan 65-year-old male status post percutaneous tracheostomy, fiberoptic bronchoscopy, PEG tube placement, postop day 1 Plan: 1. vent management per ICU team 2. Trach care per protocol 3. adv tube feeds to goal as per orders 4. will s/o Thank you. Please call with any questions or concerns. Subjective Date of service: 09/22/20 Narrative: Pt seen and examined. NO overnight events. Tube feeds being advanced slowly. Objective Vital Signs - 12hr 09/22/20 09/22/20 09/22/20 04:00 05:00 06:00 Temperature Pulse Rate 57 L 60 63 Pulse Rate [ 58 L Apical] Pulse Rate [ 58 L From Monitor] Respiratory 28 H 31 H 30 H Rate Blood Pressure 173/76 169/81 170/84 O2 Sat by Pulse 100 100 100 Oximetry O2 Sat by Pulse Oximetry [ Assessment] O2 Sat by Pulse Oximetry [ Bilateral Throughout] 09/22/20 09/22/20 09/22/20 07:00 08:00 08:11 Temperature 98.5 F Pulse Rate 65 59 L 57 L Pulse Rate [ 58 L Apical] Pulse Rate [ 57 L From Monitor] Respiratory 30 H 26 H Rate Blood Pressure 184/85 160/84 155/78 O2 Sat by Pulse 100 100 100 Oximetry O2 Sat by Pulse Oximetry [ Assessment] O2 Sat by Pulse Oximetry [ Bilateral Throughout] 09/22/20 09/22/20 09/22/20 08:24 09:00 09:30 Temperature Pulse Rate 60 62 Pulse Rate [ Apical] Pulse Rate [ From Monitor] Respiratory 30 H 16 Rate Blood Pressure 162/74 163/64 O2 Sat by Pulse 100 100 Oximetry O2 Sat by Pulse 100 Oximetry [ Assessment] O2 Sat by Pulse Oximetry [ Bilateral Throughout] 09/22/20 09/22/20 09/22/20 10:00 10:15 10:30 Temperature Pulse Rate 66 66 66 Pulse Rate [ Apical] Pulse Rate [ From Monitor] Respiratory 15 Rate Blood Pressure 181/87 174/81 167/66 O2 Sat by Pulse 100 Oximetry O2 Sat by Pulse Oximetry [ Assessment] O2 Sat by Pulse Oximetry [ Bilateral Throughout] 09/22/20 09/22/20 09/22/20 10:45 11:00 11:15 Temperature Pulse Rate 66 67 67 Pulse Rate [ Apical] Pulse Rate [ From Monitor] Respiratory 25 H Rate Blood Pressure 161/77 146/77 153/83 O2 Sat by Pulse 100 Oximetry O2 Sat by Pulse Oximetry [ Assessment] O2 Sat by Pulse Oximetry [ Bilateral Throughout] 09/22/20 09/22/20 09/22/20 11:30 11:45 12:00 Temperature 98.2 F Pulse Rate 66 65 65 Pulse Rate [ 58 L Apical] Pulse Rate [ 57 L From Monitor] Respiratory 24 Rate Blood Pressure 141/76 136/74 135/75 O2 Sat by Pulse 100 Oximetry O2 Sat by Pulse Oximetry [ Assessment] O2 Sat by Pulse Oximetry [ Bilateral Throughout] 09/22/20 09/22/20 09/22/20 12:04 12:15 12:30 Temperature Pulse Rate 66 67 66 Pulse Rate [ Apical] Pulse Rate [ From Monitor] Respiratory 27 H Rate Blood Pressure 131/73 131/73 136/74 O2 Sat by Pulse 100 Oximetry O2 Sat by Pulse Oximetry [ Assessment] O2 Sat by Pulse Oximetry [ Bilateral Throughout] 09/22/20 09/22/20 09/22/20 12:45 12:59 13:00 Temperature 98.7 F Pulse Rate 66 69 67 Pulse Rate [ Apical] Pulse Rate [ From Monitor] Respiratory 22 27 H Rate Blood Pressure 138/76 133/77 142/78 O2 Sat by Pulse 100 Oximetry O2 Sat by Pulse Oximetry [ Assessment] O2 Sat by Pulse 100 Oximetry [ Bilateral Throughout] 09/22/20 09/22/20 09/22/20 13:15 13:30 13:35 Temperature 98.2 F Pulse Rate 67 67 67 Pulse Rate [ Apical] Pulse Rate [ From Monitor] Respiratory 26 H Rate Blood Pressure 142/78 138/76 137/74 O2 Sat by Pulse Oximetry O2 Sat by Pulse Oximetry [ Assessment] O2 Sat by Pulse Oximetry [ Bilateral Throughout] 09/22/20 09/22/20 14:00 15:00 Temperature Pulse Rate 67 68 Pulse Rate [ Apical] Pulse Rate [ From Monitor] Respiratory 27 H 27 H Rate Blood Pressure 141/68 124/68 O2 Sat by Pulse 100 100 Oximetry O2 Sat by Pulse Oximetry [ Assessment] O2 Sat by Pulse Oximetry [ Bilateral Throughout] - General physical appearance Narrative Exam: Gen.: Intubated, unresponsive ENT: Trachea midline. Trach in place without hematoma, bleeding. Site c/d/i. CV: S1, S2 present Respiratory: No audible wheezes Abdomen: Soft, nondistended, nontender. PEG tube in place with bumper at 2cm w ithout tension. No rebound, rigidity, guarding - Labs 09/21/20 05:00 09/21/20 05:00
[2020-09-23] MEDS: METOCLOPRAMIDE 10 MG/2 ML INJ IV SCH ×4 (01:06→18:36)
[2020-09-23] MEDS: INSULIN LISPRO 100 UNIT/ML SUB-Q SCH ×4 (01:07→18:35)
[2020-09-23 06:43] LABS: Calcium 8.8 mg/dL (8.4-10.2)
--- NOTE | 2020-09-23 08:50 | Progress Note ---
Assessment and Plan 65 y/o male with out of hospital cardiac arrest now sedated on ativan for possible seizures. 09/23/20: Daily PSV trials multiple times a day if needed. Antiepileptic therapy. Resume tube feeds today. 09/22/20: PSV trial today as tolerated and every day from this day forward. NO sedation. Continue antiepileptic therapy. HD per renal. Still having issues with feeds. Will contact to see if he has any food allergies. Prognosis still remains very poor. WIll start some promotility agents as well. 09/21/20: Trach and peg today. Continue with vent weaning. Hopeful we can wean him off the vent once trached. Only place [facility] will cover is SNF. Prognosis remains very poor for recovery of functional state. 09/20/20: Placed consult to surgery now that COVID is negative. However, patient is morbidly obese and his surgery will likely be a complicated one especially with peg placement. Await surgery eval and recs. HD per renal. Continue daily PSV trials, mental status precludes extubation traditionally but maybe able to wean off vent with stable airway such as trach. [facility] has denied transfer and placement requests at this time based on CM notes. Prognosis is very poor, but after speaking with neurology and neurosurgery, patient wishes to continue aggressive measures. 09/19/20: Ordered repeat COVID as surgery will not do trach and peg until negative status. Continue supportive measures. Prognosis is very very poor but family wishes to proceed with jail care. 09/18/20: Unable to fit in MRI. Repeat CT showed improvement in edema but no clinical response is seen with this. Will continue Antiepileptic therapy. If wishes to proceed, will need trach and peg. Not sure if he would be candidate for PEG given his size but will ask surgery. Will need repeat COVID test prior to surgery. 09/15/20: Order MRI brain without contrast. Per surgery this will help to add more in regards to prognosis. Continue Valproic Acid and Keppra for seizure therapy. HD going now per renal. Overall prognosis remains guarded to poor. Please reach out to over the weekend to update her as I am not rounding this weekend, ,my partner will be covering. 09/14/20: Will load with valproic acid and then start to wean Diprovan. Spoke with today, very tearful on the phone. Explained to that Neurosurgery would come and gustabo walker but not a candidate for the other therapies she asked about since his edema is related to anoxic injury. Very very poor prognosis. 09/13/20: Per current neuro available, the neurologist from yesterday will call today. EEG is nonspecific but given CT of head findings consistent with anoxic encephalopathy, brain injury. As stated in neuro note, overall prognosis is very poor. Will continue to wean down diprovan to see if patient's seizures have been controlled with current Keppra dosing. Will call once she has spoken to neuro to get her thoughts on the next steps. (trach and peg, vs hospice as well as code status). Very very poor prognosis. 09/12/20: Long discussion with this am. Given recent head CT results, prognosis for full functional recovery is very POOR and neurology agrees. They will see in consult today. I have spoken to about AND and she is going to discuss with the family. The neurologist has stated they will reach out to the today. I am going to attempt to wean the ativan off and then start to wean the diprovan as long as no seizure activity is seen. Patient is now bradycardic, likely secondary to neuro state. I hope that he is not about to herniate. Patient is also like in Neurogenic DI given large urine out put volume. Very very poor prognosis. Continue supportive measures. 09/11/20: Will increase Keppra to 1500 BID given patient size. Continue Diprovan drip. Getting EEG today. HD per renal. Needs neurology consult however if patient is in status, needs to be transferred to an institution that can provide continuous EEG monitoring. Overll prognosis is very guarded to poor. Have not spoken to yet today. 09/10/20: Loaded with keppra and will start on Keppra BID. Needs EEG on therapy as well as OFF. If patient is in status, needs transfer to a location with cont inuous EEG capabilities. FiO2 has been weaned back down and is now at 60%, sats in the high 90's. HD per renal. Coags improving. Overall prognosis is guarded to poor. Spoke with on phone yesterday. Consult neurology tomorrow as not available on the weekend. Suggest checking for antibodies as he may be a candidate for convalsescent plasma. Per the , he was diagnosed with COVID on [place] and spent 6 days inpatient at the [facility]. Remains positive now with multisystem organ failure. Explained to that outcome may not be good but need more time to assess. 09/09/20: EEG ordered on yesterday but not done. If done not read. Continue diprovan for now until EEG can be done or interpreted. State Coags but given his oozing from his vascath, will give Vitamin K and FFP. Patient is covid positive so agree with steroids. Not a candidate for remdesivir. Need to check for antibodies, may be a candidate for convalescent plasma. HD per renal. Given improvement in pH will stop bicarb drip. Feed patient. 1. Stop sedation 2. EEG 3. Needs neuro consult. 4. Art line placement 5. Stat repeat of labs, if renal function is truly that bad, will need renal consult. 6. Follow up COVID testing 7. Likely needs echo 8. Will place on bicarb drip. CCT 31 minutes. Subjective Date of service: 09/23/20 Principal diagnosis: Abnormal LFTs, s/p cardiac arrest, acute kidney injury with ATN Interval history: No acute events. Still on full support. Patient did 07/16 yesterday for about 4 hours. Objective Vital Signs - 12hr 09/22/20 09/22/20 09/22/20 20:45 21:00 21:15 Temperature Pulse Rate 59 L 60 60 Pulse Rate [ Apical] Respiratory 29 H 29 H 29 H Rate Blood Pressure 149/67 152/67 152/66 O2 Sat by Pulse 100 100 100 Oximetry O2 Sat by Pulse Oximetry [ Assessment] 09/22/20 09/22/20 09/22/20 21:30 21:45 22:00 Temperature Pulse Rate 60 61 60 Pulse Rate [ Apical] Respiratory 29 H 24 29 H Rate Blood Pressure 164/70 169/76 163/69 O2 Sat by Pulse 100 100 99 Oximetry O2 Sat by Pulse Oximetry [ Assessment] 09/22/20 09/22/20 09/22/20 22:10 22:15 22:30 Temperature Pulse Rate 59 L 60 62 Pulse Rate [ Apical] Respiratory 30 H 29 H 30 H Rate Blood Pressure 163/69 156/65 163/64 O2 Sat by Pulse 99 100 98 Oximetry O2 Sat by Pulse Oximetry [ Assessment] 09/22/20 09/22/20 09/22/20 22:45 23:00 23:15 Temperature Pulse Rate 61 59 L 60 Pulse Rate [ Apical] Respiratory 25 H 30 H 30 H Rate Blood Pressure 153/66 144/67 149/63 O2 Sat by Pulse 100 100 100 Oximetry O2 Sat by Pulse 97 Oximetry [ Assessment] 09/22/20 09/22/20 09/22/20 23:30 23:45 23:51 Temperature 98.7 F Pulse Rate 59 L 63 Pulse Rate [ Apical] Respiratory 30 H 30 H Rate Blood Pressure 162/72 161/68 O2 Sat by Pulse 100 100 Oximetry O2 Sat by Pulse Oximetry [ Assessment] 09/23/20 09/23/20 09/23/20 00:00 00:15 00:30 Temperature Pulse Rate 61 60 60 Pulse Rate [ 58 L Apical] Respiratory 29 H 30 H 28 H Rate Blood Pressure 156/71 159/71 159/70 O2 Sat by Pulse 100 100 100 Oximetry O2 Sat by Pulse Oximetry [ Assessment] 09/23/20 09/23/20 09/23/20 00:45 01:00 01:15 Temperature Pulse Rate 60 59 L 60 Pulse Rate [ Apical] Respiratory 28 H 30 H 28 H Rate Blood Pressure 152/69 152/69 152/68 O2 Sat by Pulse 100 100 100 Oximetry O2 Sat by Pulse Oximetry [ Assessment] 09/23/20 09/23/20 09/23/20 01:30 01:45 02:00 Temperature Pulse Rate 60 61 61 Pulse Rate [ Apical] Respiratory 21 30 H 31 H Rate Blood Pressure 156/66 162/70 157/68 O2 Sat by Pulse 100 100 100 Oximetry O2 Sat by Pulse Oximetry [ Assessment] 09/23/20 09/23/20 09/23/20 02:15 02:30 02:45 Temperature Pulse Rate 61 60 61 Pulse Rate [ Apical] Respiratory 30 H 32 H 30 H Rate Blood Pressure 162/72 158/74 158/73 O2 Sat by Pulse 100 100 100 Oximetry O2 Sat by Pulse Oximetry [ Assessment] 09/23/20 09/23/20 09/23/20 03:00 03:15 03:17 Temperature 99.4 F Pulse Rate 60 60 Pulse Rate [ Apical] Respiratory 31 H 30 H Rate Blood Pressure 160/71 169/68 O2 Sat by Pulse 100 99 Oximetry O2 Sat by Pulse Oximetry [ Assessment] 09/23/20 09/23/20 09/23/20 03:30 03:45 03:47 Temperature Pulse Rate 59 L 60 59 L Pulse Rate [ Apical] Respiratory 30 H 30 H Rate Blood Pressure 148/67 163/68 O2 Sat by Pulse 100 100 Oximetry O2 Sat by Pulse Oximetry [ Assessment] 09/23/20 09/23/20 09/23/20 04:00 04:15 04:30 Temperature Pulse Rate 59 L 63 61 Pulse Rate [ Apical] Respiratory 30 H 28 H 28 H Rate Blood Pressure 167/65 152/75 171/71 O2 Sat by Pulse 100 100 100 Oximetry O2 Sat by Pulse Oximetry [ Assessment] 09/23/20 09/23/20 09/23/20 04:45 05:00 05:15 Temperature Pulse Rate 60 60 60 Pulse Rate [ Apical] Respiratory 28 H 30 H 25 H Rate Blood Pressure 163/68 156/64 148/66 O2 Sat by Pulse 100 100 100 Oximetry O2 Sat by Pulse Oximetry [ Assessment] 09/23/20 09/23/20 09/23/20 05:30 05:45 06:00 Temperature Pulse Rate 60 62 70 Pulse Rate [ Apical] Respiratory 29 H 29 H 25 H Rate Blood Pressure 154/66 167/75 167/75 O2 Sat by Pulse 100 100 Oximetry O2 Sat by Pulse Oximetry [ Assessment] 09/23/20 09/23/20 09/23/20 06:15 06:30 06:45 Temperature Pulse Rate 66 63 62 Pulse Rate [ Apical] Respiratory 30 H 29 H 25 H Rate Blood Pressure 146/73 141/73 152/77 O2 Sat by Pulse 100 100 100 Oximetry O2 Sat by Pulse Oximetry [ Assessment] 09/23/20 07:00 Temperature Pulse Rate 62 Pulse Rate [ Apical] Respiratory 30 H Rate Blood Pressure 150/75 O2 Sat by Pulse 100 Oximetry O2 Sat by Pulse Oximetry [ Assessment] Constitutional: comatose, other (morbidly obese) Eyes: non-icteric ENT: other (orally intubated and sedated) Neck: supple Effort: normal Ascultation: Bilateral: diminished breath sounds Percussion: Bilateral: not dull Cardiovascular: other (bradycardic) Gastrointestinal: soft CBC and BMP: 09/21/20 05:00 09/23/20 06:05 ABG, PT/INR, D-dimer: ABG ABG pH 7.442 (7.320-7.450) 02/04/21 03:54 POC ABG pCO2 42.3 mmHg (32.0-48.0) 09/14/20 03:54 ABG pCO2 33.4 mm Hg 09/11/20 05:40 POC ABG pO2 71.1 mmHg (83-108) L 09/14/20 03:54 ABG pO2 112.1 mm Hg (80.0-90.0) H 09/11/20 05:40 POC ABG HCO3 28.2 09/14/20 03:54 ABG O2 Saturation 98.4 % (95.0-99.0) 09/11/20 05:40 PT/INR, D-dimer PT 16.1 Sec. (12.2-14.9) H 09/12/20 04:00 INR 1.31 (0.87-1.13) H 09/12/20 04:00 D-Dimer 8315.85 ng/mlDDU (0-234) H 09/07/20 14:00 Abnormal lab findings: Abnormal Labs 09/07/20 09/07/20 09/07/20 13:08 14:00 14:00 WBC 15.7 H RBC Hgb 10.2 L Hct 32.5 L MCHC 31 L RDW 17.5 H Lymph % (Auto) [place] % (Auto) Lymph # (Auto) [place] # (Auto) Seg Neutrophils % Seg Neuts % (Manual) 72.0 H Lymphocytes % (Manual) Monocytes % (Manual) 8.0 H Nucleated RBC % Seg Neutrophils # Seg Neutrophils # Man 11.3 H Lymphocytes # (Manual) Monocytes # (Manual) 1.3 H PT INR D-Dimer 8315.85 H ABG pH POC ABG pCO2 POC ABG pO2 ABG pO2 ABG HCO3 ABG Base Excess ABG Hemoglobin ABG Oxyhemoglobin ABG Sodium ABG Potassium ABG Chloride ABG Glucose Carboxyhemoglobin Sodium Potassium Chloride Carbon Dioxide BUN Creatinine Glucose POC Glucose Lactic Acid Calcium Phosphorus Ferritin Total Bilirubin Direct Bilirubin AST ALT Lactate Dehydrogenase Total Creatine Kinase Troponin T Total Protein Albumin Triglycerides Arterial Blood Glucose Arterial Blood Ionized Calcium Urine pH 8.0 H Urine Creatinine Salicylates Acetaminophen Coronavirus (PCR) 09/07/20 09/07/20 09/07/20 14:00 14:00 14:00 WBC RBC Hgb Hct MCHC RDW Lymph % (Auto) [place] % (Auto) Lymph # (Auto) [place] # (Auto) Seg Neutrophils % Seg Neuts % (Manual) Lymphocytes % (Manual) Monocytes % (Manual) Nucleated RBC % Seg Neutrophils # Seg Neutrophils # Man Lymphocytes # (Manual) Monocytes # (Manual) PT INR D-Dimer ABG pH POC ABG pCO2 POC ABG pO2 ABG pO2 ABG HCO3 ABG Base Excess ABG Hemoglobin ABG Oxyhemoglobin ABG Sodium ABG Potassium ABG Chloride ABG Glucose Carboxyhemoglobin Sodium Potassium Chloride Carbon Dioxide BUN Creatinine Glucose POC Glucose Lactic Acid 4.30 H* Calcium Phosphorus Ferritin > 2000.0 H Total Bilirubin Direct Bilirubin AST ALT Lactate Dehydrogenase 882 H Total Creatine Kinase 477 H Troponin T 0.076 H Total Protein Albumin Triglycerides Arterial Blood Glucose Arterial Blood Ionized Calcium Urine pH Urine Creatinine Salicylates Acetaminophen Coronavirus (PCR) 09/07/20 09/07/20 09/07/20 14:00 14:00 14:00 WBC RBC Hgb Hct MCHC RDW Lymph % (Auto) [place] % (Auto) Lymph # (Auto) [place] # (Auto) Seg Neutrophils % Seg Neuts % (Manual) Lymphocytes % (Manual) Monocytes % (Manual) Nucleated RBC % Seg Neutrophils # Seg Neutrophils # Man Lymphocytes # (Manual) Monocytes # (Manual) PT INR D-Dimer ABG pH POC ABG pCO2 POC ABG pO2 ABG pO2 ABG HCO3 ABG Base Excess ABG Hemoglobin ABG Oxyhemoglobin ABG Sodium ABG Potassium ABG Chloride ABG Glucose Carboxyhemoglobin Sodium Potassium Chloride Carbon Dioxide BUN Creatinine 1.8 H Glucose POC Glucose Lactic Acid Calcium Phosphorus Ferritin Total Bilirubin Direct Bilirubin AST 310 H ALT 339 H Lactate Dehydrogenase Total Creatine Kinase Troponin T Total Protein Albumin 3.6 L Triglycerides Arterial Blood Glucose Arterial Blood Ionized Calcium Urine pH Urine Creatinine Salicylates < 0.3 L Acetaminophen 5.0 L Coronavirus (PCR) 09/07/20 09/08/20 09/08/20 14:26 04:00 04:17 WBC RBC Hgb Hct MCHC RDW Lymph % (Auto) [place] % (Auto) Lymph # (Auto) [place] # (Auto) Seg Neutrophils % Seg Neuts % (Manual) Lymphocytes % (Manual) Monocytes % (Manual) Nucleated RBC % Seg Neutrophils # Seg Neutrophils # Man Lymphocytes # (Manual) Monocytes # (Manual) PT INR D-Dimer ABG pH 7.037 L 7.095 L POC ABG pCO2 92.4 H 68.0 H POC ABG pO2 130.8 H 43.5 L ABG pO2 ABG HCO3 ABG Base Excess ABG Hemoglobin 11.3 L 10.6 L ABG Oxyhemoglobin 70.8 L ABG Sodium ABG Potassium 7.0 H ABG Chloride 108.0 H ABG Glucose Carboxyhemoglobin 0.3 L Sodium Potassium 8.4 H* D Chloride Carbon Dioxide 17 L D BUN 38 H Creatinine 3.9 H D Glucose POC Glucose Lactic Acid Calcium 7.7 L D Phosphorus Ferritin Total Bilirubin Direct Bilirubin AST ALT Lactate Dehydrogenase Total Creatine Kinase Troponin T Total Protein Albumin Triglycerides Arterial Blood Glucose Arterial Blood Ionized Calcium 4.5 L Urine pH Urine Creatinine Salicylates Acetaminophen Coronavirus (PCR) 09/08/20 09/08/20 09/08/20 05:00 05:25 12:02 WBC RBC Hgb Hct MCHC RDW Lymph % (Auto) [place] % (Auto) Lymph # (Auto) [place] # (Auto) Seg Neutrophils % Seg Neuts % (Manual) Lymphocytes % (Manual) Monocytes % (Manual) Nucleated RBC % Seg Neutrophils # Seg Neutrophils # Man Lymphocytes # (Manual) Monocytes # (Manual) PT INR D-Dimer ABG pH 7.088 L POC ABG pCO2 69.1 H POC ABG pO2 35.2 L ABG pO2 ABG HCO3 ABG Base Excess ABG Hemoglobin 10.9 L ABG Oxyhemoglobin 57.1 L ABG Sodium ABG Potassium 7.0 H ABG Chloride 108.0 H ABG Glucose Carboxyhemoglobin 0.4 L Sodium Potassium 8.1 H* Chloride Carbon Dioxide 17 L BUN 38 H Creatinine 3.7 H Glucose POC Glucose Lactic Acid Calcium 8.0 L Phosphorus 8.00 H Ferritin Total Bilirubin Direct Bilirubin 0.5 H AST 3696 H ALT 3331 H Lactate Dehydrogenase Total Creatine Kinase Troponin T Total Protein Albumin 3.5 L Triglycerides Arterial Blood Glucose Arterial Blood Ionized Calcium 4.4 L Urine pH Urine Creatinine Salicylates Acetaminophen Coronavirus (PCR) 09/08/20 09/08/20 09/08/20 16:31 22:36 Unknown WBC RBC Hgb Hct MCHC RDW Lymph % (Auto) [place] % (Auto) Lymph # (Auto) [place] # (Auto) Seg Neutrophils % Seg Neuts % (Manual) Lymphocytes % (Manual) Monocytes % (Manual) Nucleated RBC % Seg Neutrophils # Seg Neutrophils # Man Lymphocytes # (Manual) Monocytes # (Manual) PT INR D-Dimer ABG pH POC ABG pCO2 POC ABG pO2 ABG pO2 ABG HCO3 ABG Base Excess ABG Hemoglobin ABG Oxyhemoglobin ABG Sodium ABG Potassium ABG Chloride ABG Glucose Carboxyhemoglobin Sodium Potassium 5.3 H D Chloride Carbon Dioxide BUN Creatinine Glucose POC Glucose 158 H Lactic Acid Calcium Phosphorus Ferritin Total Bilirubin Direct Bilirubin AST ALT Lactate Dehydrogenase Total Creatine Kinase Troponin T Total Protein Albumin Triglycerides Arterial Blood Glucose Arterial Blood Ionized Calcium Urine pH Urine Creatinine Salicylates Acetaminophen Coronavirus (PCR) Positive A 09/08/20 09/08/20 09/08/20 Unknown Unknown Unknown WBC 18.4 H RBC Hgb 10.1 L Hct 32.0 L MCHC RDW 18.2 H Lymph % (Auto) [place] % (Auto) Lymph # (Auto) [place] # (Auto) Seg Neutrophils % Seg Neuts % (Manual) 81.0 H Lymphocytes % (Manual) 2.0 L Monocytes % (Manual) Nucleated RBC % 1.0 H Seg Neutrophils # Seg Neutrophils # Man 14.9 H Lymphocytes # (Manual) 0.4 L Monocytes # (Manual) 1.1 H PT 21.2 H INR 1.83 H D-Dimer ABG pH POC ABG pCO2 POC ABG pO2 ABG pO2 ABG HCO3 ABG Base Excess ABG Hemoglobin ABG Oxyhemoglobin ABG Sodium ABG Potassium ABG Chloride ABG Glucose Carboxyhemoglobin Sodium Potassium Chloride Carbon Dioxide BUN Creatinine Glucose POC Glucose Lactic Acid Calcium Phosphorus Ferritin Total Bilirubin Direct Bilirubin AST ALT Lactate Dehydrogenase Total Creatine Kinase Troponin T Total Protein Albumin Triglycerides Arterial Blood Glucose Arterial Blood Ionized Calcium Urine pH Urine Creatinine 182.4 H Salicylates Acetaminophen Coronavirus (PCR) 09/09/20 09/09/20 09/09/20 03:14 04:20 04:20 WBC 16.3 H RBC 3.12 L Hgb 8.6 L Hct 26.8 L MCHC RDW 18.2 H Lymph % (Auto) 6.3 L [place] % (Auto) 8.8 H Lymph # (Auto) 1.0 L [place] # (Auto) 1.4 H Seg Neutrophils % 84.5 H Seg Neuts % (Manual) Lymphocytes % (Manual) Monocytes % (Manual) Nucleated RBC % Seg Neutrophils # 13.7 H Seg Neutrophils # Man Lymphocytes # (Manual) Monocytes # (Manual) PT INR D-Dimer ABG pH POC ABG pCO2 POC ABG pO2 148.5 H ABG pO2 ABG HCO3 ABG Base Excess ABG Hemoglobin 9.4 L ABG Oxyhemoglobin 98.8 H ABG Sodium 134.8 L ABG Potassium 5.0 H ABG Chloride ABG Glucose 222 H Carboxyhemoglobin 0.1 L Sodium Potassium 5.2 H Chloride Carbon Dioxide BUN 47 H Creatinine 4.3 H Glucose 211 H POC Glucose Lactic Acid Calcium 7.4 L Phosphorus Ferritin Total Bilirubin Direct Bilirubin AST 05663 H ALT 6206 H Lactate Dehydrogenase Total Creatine Kinase Troponin T Total Protein 5.6 L Albumin 3.0 L Triglycerides Arterial Blood Glucose 222 H Arterial Blood Ionized Calcium 3.8 L Urine pH Urine Creatinine Salicylates Acetaminophen Coronavirus (PCR) 09/09/20 09/09/20 09/09/20 10:00 12:23 18:22 WBC RBC Hgb Hct MCHC RDW Lymph % (Auto) [place] % (Auto) Lymph # (Auto) [place] # (Auto) Seg Neutrophils % Seg Neuts % (Manual) Lymphocytes % (Manual) Monocytes % (Manual) Nucleated RBC % Seg Neutrophils # Seg Neutrophils # Man Lymphocytes # (Manual) Monocytes # (Manual) PT 21.7 H INR 1.90 H D-Dimer ABG pH POC ABG pCO2 POC ABG pO2 ABG pO2 ABG HCO3 ABG Base Excess ABG Hemoglobin ABG Oxyhemoglobin ABG Sodium ABG Potassium ABG Chloride ABG Glucose Carboxyhemoglobin Sodium Potassium Chloride Carbon Dioxide BUN Creatinine Glucose POC Glucose 216 H 211 H Lactic Acid Calcium Phosphorus Ferritin Total Bilirubin Direct Bilirubin AST ALT Lactate Dehydrogenase Total Creatine Kinase Troponin T Total Protein Albumin Triglycerides Arterial Blood Glucose Arterial Blood Ionized Calcium Urine pH Urine Creatinine Salicylates Acetaminophen Coronavirus (PCR) 09/10/20 09/10/20 09/10/20 04:00 04:05 04:05 WBC 15.0 H RBC 3.06 L Hgb 8.6 L Hct 25.8 L MCHC RDW 18.0 H Lymph % (Auto) [place] % (Auto) Lymph # (Auto) [place] # (Auto) Seg Neutrophils % Seg Neuts % (Manual) 86.0 H Lymphocytes % (Manual) 6.0 L Monocytes % (Manual) 8.0 H Nucleated RBC % Seg Neutrophils # Seg Neutrophils # Man 12.9 H Lymphocytes # (Manual) 0.9 L Monocytes # (Manual) 1.2 H PT 18.4 H INR 1.54 H D-Dimer ABG pH POC ABG pCO2 POC ABG pO2 ABG pO2 ABG HCO3 ABG Base Excess ABG Hemoglobin ABG Oxyhemoglobin ABG Sodium ABG Potassium ABG Chloride ABG Glucose Carboxyhemoglobin Sodium 134 L Potassium Chloride 93.7 L Carbon Dioxide BUN 46 H Creatinine 3.6 H Glucose 275 H POC Glucose Lactic Acid Calcium 7.7 L Phosphorus Ferritin Total Bilirubin 1.30 H Direct Bilirubin AST 5899 H ALT 6440 H Lactate Dehydrogenase Total Creatine Kinase Troponin T Total Protein 5.9 L Albumin 3.3 L Triglycerides Arterial Blood Glucose Arterial Blood Ionized Calcium Urine pH Urine Creatinine Salicylates Acetaminophen Coronavirus (PCR) 09/10/20 09/10/20 09/10/20 04:35 12:06 17:42 WBC RBC Hgb Hct MCHC RDW Lymph % (Auto) [place] % (Auto) Lymph # (Auto) [place] # (Auto) Seg Neutrophils % Seg Neuts % (Manual) Lymphocytes % (Manual) Monocytes % (Manual) Nucleated RBC % Seg Neutrophils # Seg Neutrophils # Man Lymphocytes # (Manual) Monocytes # (Manual) PT INR D-Dimer ABG pH 7.464 H POC ABG pCO2 POC ABG pO2 ABG pO2 ABG HCO3 ABG Base Excess ABG Hemoglobin 9.9 L ABG Oxyhemoglobin ABG Sodium 131.6 L ABG Potassium ABG Chloride 97.0 L ABG Glucose 281 H Carboxyhemoglobin 0.1 L Sodium Potassium Chloride Carbon Dioxide BUN Creatinine Glucose POC Glucose 298 H 340 H Lactic Acid Calcium Phosphorus Ferritin Total Bilirubin Direct Bilirubin AST ALT Lactate Dehydrogenase Total Creatine Kinase Troponin T Total Protein Albumin Triglycerides Arterial Blood Glucose 281 H Arterial Blood Ionized Calcium 3.9 L Urine pH Urine Creatinine Salicylates Acetaminophen Coronavirus (PCR) 09/10/20 09/11/20 09/11/20 23:07 04:44 05:17 WBC RBC Hgb Hct MCHC RDW Lymph % (Auto) [place] % (Auto) Lymph # (Auto) [place] # (Auto) Seg Neutrophils % Seg Neuts % (Manual) Lymphocytes % (Manual) Monocytes % (Manual) Nucleated RBC % Seg Neutrophils # Seg Neutrophils # Man Lymphocytes # (Manual) Monocytes # (Manual) PT 16.9 H INR 1.39 H D-Dimer ABG pH POC ABG pCO2 POC ABG pO2 ABG pO2 ABG HCO3 ABG Base Excess ABG Hemoglobin ABG Oxyhemoglobin ABG Sodium ABG Potassium ABG Chloride ABG Glucose Carboxyhemoglobin Sodium Potassium Chloride Carbon Dioxide BUN Creatinine Glucose POC Glucose 367 H 416 H Lactic Acid Calcium Phosphorus Ferritin Total Bilirubin Direct Bilirubin AST ALT Lactate Dehydrogenase Total Creatine Kinase Troponin T Total Protein Albumin Triglycerides Arterial Blood Glucose Arterial Blood Ionized Calcium Urine pH Urine Creatinine Salicylates Acetaminophen Coronavirus (PCR) 09/11/20 09/11/20 09/11/20 05:40 12:01 17:50 WBC RBC Hgb Hct MCHC RDW Lymph % (Auto) [place] % (Auto) Lymph # (Auto) [place] # (Auto) Seg Neutrophils % Seg Neuts % (Manual) Lymphocytes % (Manual) Monocytes % (Manual) Nucleated RBC % Seg Neutrophils # Seg Neutrophils # Man Lymphocytes # (Manual) Monocytes # (Manual) PT INR D-Dimer ABG pH 7.543 H POC ABG pCO2 POC ABG pO2 ABG pO2 112.1 H ABG HCO3 28.1 H ABG Base Excess 5.4 H ABG Hemoglobin 8.4 L ABG Oxyhemoglobin ABG Sodium ABG Potassium ABG Chloride ABG Glucose Carboxyhemoglobin Sodium Potassium Chloride Carbon Dioxide BUN Creatinine Glucose POC Glucose 418 H 404 H Lactic Acid Calcium Phosphorus Ferritin Total Bilirubin Direct Bilirubin AST ALT Lactate Dehydrogenase Total Creatine Kinase Troponin T Total Protein Albumin Triglycerides Arterial Blood Glucose Arterial Blood Ionized Calcium Urine pH Urine Creatinine Salicylates Acetaminophen Coronavirus (PCR) 09/11/20 09/11/20 09/12/20 23:10 23:43 03:15 WBC RBC Hgb Hct MCHC RDW Lymph % (Auto) [place] % (Auto) Lymph # (Auto) [place] # (Auto) Seg Neutrophils % Seg Neuts % (Manual) Lymphocytes % (Manual) Monocytes % (Manual) Nucleated RBC % Seg Neutrophils # Seg Neutrophils # Man Lymphocytes # (Manual) Monocytes # (Manual) PT INR D-Dimer ABG pH POC ABG pCO2 POC ABG pO2 ABG pO2 ABG HCO3 ABG Base Excess ABG Hemoglobin ABG Oxyhemoglobin ABG Sodium ABG Potassium ABG Chloride ABG Glucose Carboxyhemoglobin Sodium 135 L Potassium Chloride 92.3 L Carbon Dioxide BUN 62 H Creatinine 3.7 H Glucose 406 H POC Glucose 372 H 359 H Lactic Acid Calcium Phosphorus Ferritin Total Bilirubin Direct Bilirubin AST 687 H ALT 3701 H Lactate Dehydrogenase Total Creatine Kinase Troponin T Total Protein 5.8 L Albumin 3.1 L Triglycerides Arterial Blood Glucose Arterial Blood Ionized Calcium Urine pH Urine Creatinine Salicylates Acetaminophen Coronavirus (PCR) 09/12/20 09/12/20 09/12/20 03:18 04:00 04:00 WBC 13.7 H RBC 3.30 L Hgb 9.3 L Hct 27.6 L MCHC RDW 17.5 H Lymph % (Auto) [place] % (Auto) Lymph # (Auto) [place] # (Auto) Seg Neutrophils % Seg Neuts % (Manual) 76.0 H Lymphocytes % (Manual) 11.0 L Monocytes % (Manual) 13.0 H Nucleated RBC % Seg Neutrophils # Seg Neutrophils # Man 10.4 H Lymphocytes # (Manual) Monocytes # (Manual) 1.8 H PT 16.1 H INR 1.31 H D-Dimer ABG pH 7.558 H POC ABG pCO2 POC ABG pO2 74.7 L ABG pO2 ABG HCO3 ABG Base Excess ABG Hemoglobin 9.7 L ABG Oxyhemoglobin ABG Sodium 132.4 L ABG Potassium ABG Chloride 95.0 L ABG Glucose 437 H Carboxyhemoglobin Sodium Potassium Chloride Carbon Dioxide BUN Creatinine Glucose POC Glucose Lactic Acid Calcium Phosphorus Ferritin Total Bilirubin Direct Bilirubin AST ALT Lactate Dehydrogenase Total Creatine Kinase Troponin T Total Protein Albumin Triglycerides Arterial Blood Glucose 437 H Arterial Blood Ionized Calcium 4.3 L Urine pH Urine Creatinine Salicylates Acetaminophen Coronavirus (PCR) 09/12/20 09/12/20 09/12/20 04:21 05:20 06:37 WBC RBC Hgb Hct MCHC RDW Lymph % (Auto) [place] % (Auto) Lymph # (Auto) [place] # (Auto) Seg Neutrophils % Seg Neuts % (Manual) Lymphocytes % (Manual) Monocytes % (Manual) Nucleated RBC % Seg Neutrophils # Seg Neutrophils # Man Lymphocytes # (Manual) Monocytes # (Manual) PT INR D-Dimer ABG pH POC ABG pCO2 POC ABG pO2 ABG pO2 ABG HCO3 ABG Base Excess ABG Hemoglobin ABG Oxyhemoglobin ABG Sodium ABG Potassium ABG Chloride ABG Glucose Carboxyhemoglobin Sodium Potassium Chloride Carbon Dioxide BUN Creatinine Glucose POC Glucose 417 H 397 H 370 H Lactic Acid Calcium Phosphorus Ferritin Total Bilirubin Direct Bilirubin AST ALT Lactate Dehydrogenase Total Creatine Kinase Troponin T Total Protein Albumin Triglycerides Arterial Blood Glucose Arterial Blood Ionized Calcium Urine pH Urine Creatinine Salicylates Acetaminophen Coronavirus (PCR) 09/12/20 09/12/20 09/12/20 11:56 17:14 21:52 WBC RBC Hgb Hct MCHC RDW Lymph % (Auto) [place] % (Auto) Lymph # (Auto) [place] # (Auto) Seg Neutrophils % Seg Neuts % (Manual) Lymphocytes % (Manual) Monocytes % (Manual) Nucleated RBC % Seg Neutrophils # Seg Neutrophils # Man Lymphocytes # (Manual) Monocytes # (Manual) PT INR D-Dimer ABG pH POC ABG pCO2 POC ABG pO2 ABG pO2 ABG HCO3 ABG Base Excess ABG Hemoglobin ABG Oxyhemoglobin ABG Sodium ABG Potassium ABG Chloride ABG Glucose Carboxyhemoglobin Sodium Potassium Chloride Carbon Dioxide BUN Creatinine Glucose POC Glucose 341 H 325 H 285 H Lactic Acid Calcium Phosphorus Ferritin Total Bilirubin Direct Bilirubin AST ALT Lactate Dehydrogenase Total Creatine Kinase Troponin T Total Protein Albumin Triglycerides Arterial Blood Glucose Arterial Blood Ionized Calcium Urine pH Urine Creatinine Salicylates Acetaminophen Coronavirus (PCR) 09/12/20 09/12/20 09/12/20 23:39 Unknown Unknown WBC RBC Hgb Hct MCHC RDW Lymph % (Auto) [place] % (Auto) Lymph # (Auto) [place] # (Auto) Seg Neutrophils % Seg Neuts % (Manual) Lymphocytes % (Manual) Monocytes % (Manual) Nucleated RBC % Seg Neutrophils # Seg Neutrophils # Man Lymphocytes # (Manual) Monocytes # (Manual) PT INR D-Dimer ABG pH POC ABG pCO2 POC ABG pO2 ABG pO2 ABG HCO3 ABG Base Excess ABG Hemoglobin ABG Oxyhemoglobin ABG Sodium ABG Potassium ABG Chloride ABG Glucose Carboxyhemoglobin Sodium 135 L Potassium Chloride 92.2 L Carbon Dioxide BUN 65 H Creatinine 3.5 H Glucose 418 H POC Glucose 338 H Lactic Acid Calcium Phosphorus Ferritin Total Bilirubin Direct Bilirubin AST 553 H ALT 3453 H Lactate Dehydrogenase Total Creatine Kinase Troponin T Total Protein 5.9 L Albumin 3.0 L Triglycerides 220 H Arterial Blood Glucose Arterial Blood Ionized Calcium Urine pH Urine Creatinine Salicylates Acetaminophen Coronavirus (PCR) 09/13/20 09/13/20 09/13/20 04:47 05:24 10:50 WBC RBC Hgb Hct MCHC RDW Lymph % (Auto) [place] % (Auto) Lymph # (Auto) [place] # (Auto) Seg Neutrophils % Seg Neuts % (Manual) Lymphocytes % (Manual) Monocytes % (Manual) Nucleated RBC % Seg Neutrophils # Seg Neutrophils # Man Lymphocytes # (Manual) Monocytes # (Manual) PT INR D-Dimer ABG pH 7.571 H POC ABG pCO2 POC ABG pO2 69.0 L ABG pO2 ABG HCO3 ABG Base Excess ABG Hemoglobin 10.1 L ABG Oxyhemoglobin 93.2 L ABG Sodium 134.0 L ABG Potassium ABG Chloride ABG Glucose 365 H Carboxyhemoglobin 0.4 L Sodium Potassium Chloride 96.6 L Carbon Dioxide 32 H BUN 76 H Creatinine 3.1 H Glucose 395 H POC Glucose 329 H Lactic Acid Calcium Phosphorus Ferritin Total Bilirubin Direct Bilirubin AST ALT Lactate Dehydrogenase Total Creatine Kinase Troponin T Total Protein Albumin Triglycerides Arterial Blood Glucose 365 H Arterial Blood Ionized Calcium Urine pH Urine Creatinine Salicylates Acetaminophen Coronavirus (PCR) 09/13/20 09/13/20 09/13/20 11:39 17:48 23:35 WBC RBC Hgb Hct MCHC RDW Lymph % (Auto) [place] % (Auto) Lymph # (Auto) [place] # (Auto) Seg Neutrophils % Seg Neuts % (Manual) Lymphocytes % (Manual) Monocytes % (Manual) Nucleated RBC % Seg Neutrophils # Seg Neutrophils # Man Lymphocytes # (Manual) Monocytes # (Manual) PT INR D-Dimer ABG pH POC ABG pCO2 POC ABG pO2 ABG pO2 ABG HCO3 ABG Base Excess ABG Hemoglobin ABG Oxyhemoglobin ABG Sodium ABG Potassium ABG Chloride ABG Glucose Carboxyhemoglobin Sodium Potassium Chloride Carbon Dioxide BUN Creatinine Glucose POC Glucose 344 H 286 H 223 H Lactic Acid Calcium Phosphorus Ferritin Total Bilirubin Direct Bilirubin AST ALT Lactate Dehydrogenase Total Creatine Kinase Troponin T Total Protein Albumin Triglycerides Arterial Blood Glucose Arterial Blood Ionized Calcium Urine pH Urine Creatinine Salicylates Acetaminophen Coronavirus (PCR) 09/14/20 09/14/20 09/14/20 03:54 05:34 10:27 WBC RBC Hgb Hct MCHC RDW Lymph % (Auto) [place] % (Auto) Lymph # (Auto) [place] # (Auto) Seg Neutrophils % Seg Neuts % (Manual) Lymphocytes % (Manual) Monocytes % (Manual) Nucleated RBC % Seg Neutrophils # Seg Neutrophils # Man Lymphocytes # (Manual) Monocytes # (Manual) PT INR D-Dimer ABG pH POC ABG pCO2 POC ABG pO2 71.1 L ABG pO2 ABG HCO3 ABG Base Excess ABG Hemoglobin 10.3 L ABG Oxyhemoglobin ABG Sodium 135.2 L ABG Potassium ABG Chloride ABG Glucose 281 H Carboxyhemoglobin Sodium Potassium Chloride 96.6 L Carbon Dioxide BUN 100 H Creatinine 3.9 H Glucose 286 H POC Glucose 252 H Lactic Acid Calcium Phosphorus Ferritin Total Bilirubin Direct Bilirubin AST 145 H ALT 1400 H Lactate Dehydrogenase Total Creatine Kinase Troponin T Total Protein 5.6 L Albumin 2.9 L Triglycerides Arterial Blood Glucose 281 H Arterial Blood Ionized Calcium Urine pH Urine Creatinine Salicylates Acetaminophen Coronavirus (PCR) 09/14/20 09/14/20 09/14/20 11:38 17:52 23:07 WBC RBC Hgb Hct MCHC RDW Lymph % (Auto) [place] % (Auto) Lymph # (Auto) [place] # (Auto) Seg Neutrophils % Seg Neuts % (Manual) Lymphocytes % (Manual) Monocytes % (Manual) Nucleated RBC % Seg Neutrophils # Seg Neutrophils # Man Lymphocytes # (Manual) Monocytes # (Manual) PT INR D-Dimer ABG pH POC ABG pCO2 POC ABG pO2 ABG pO2 ABG HCO3 ABG Base Excess ABG Hemoglobin ABG Oxyhemoglobin ABG Sodium ABG Potassium ABG Chloride ABG Glucose Carboxyhemoglobin Sodium Potassium Chloride Carbon Dioxide BUN Creatinine Glucose POC Glucose 247 H 247 H 256 H Lactic Acid Calcium Phosphorus Ferritin Total Bilirubin Direct Bilirubin AST ALT Lactate Dehydrogenase Total Creatine Kinase Troponin T Total Protein Albumin Triglycerides Arterial Blood Glucose Arterial Blood Ionized Calcium Urine pH Urine Creatinine Salicylates Acetaminophen Coronavirus (PCR) 09/15/20 09/15/20 09/15/20 04:54 11:24 17:48 WBC RBC Hgb Hct MCHC RDW Lymph % (Auto) [place] % (Auto) Lymph # (Auto) [place] # (Auto) Seg Neutrophils % Seg Neuts % (Manual) Lymphocytes % (Manual) Monocytes % (Manual) Nucleated RBC % Seg Neutrophils # Seg Neutrophils # Man Lymphocytes # (Manual) Monocytes # (Manual) PT INR D-Dimer ABG pH POC ABG pCO2 POC ABG pO2 ABG pO2 ABG HCO3 ABG Base Excess ABG Hemoglobin ABG Oxyhemoglobin ABG Sodium ABG Potassium ABG Chloride ABG Glucose Carboxyhemoglobin Sodium Potassium Chloride Carbon Dioxide BUN Creatinine Glucose POC Glucose 271 H 228 H 254 H Lactic Acid Calcium Phosphorus Ferritin Total Bilirubin Direct Bilirubin AST ALT Lactate Dehydrogenase Total Creatine Kinase Troponin T Total Protein Albumin Triglycerides Arterial Blood Glucose Arterial Blood Ionized Calcium Urine pH Urine Creatinine Salicylates Acetaminophen Coronavirus (PCR) 09/15/20 09/15/20 09/15/20 19:20 19:20 23:13 WBC 27.3 H RBC 3.16 L Hgb 8.8 L Hct 27.0 L MCHC RDW 19.7 H Lymph % (Auto) [place] % (Auto) Lymph # (Auto) [place] # (Auto) Seg Neutrophils % Seg Neuts % (Manual) 81.0 H Lymphocytes % (Manual) 9.0 L Monocytes % (Manual) 10.0 H Nucleated RBC % Seg Neutrophils # Seg Neutrophils # Man 22.1 H Lymphocytes # (Manual) Monocytes # (Manual) 2.7 H PT INR D-Dimer ABG pH POC ABG pCO2 POC ABG pO2 ABG pO2 ABG HCO3 ABG Base Excess ABG Hemoglobin ABG Oxyhemoglobin ABG Sodium ABG Potassium ABG Chloride ABG Glucose Carboxyhemoglobin Sodium Potassium Chloride Carbon Dioxide BUN 68 H Creatinine 2.8 H Glucose 288 H POC Glucose 259 H Lactic Acid Calcium Phosphorus Ferritin Total Bilirubin Direct Bilirubin AST ALT Lactate Dehydrogenase Total Creatine Kinase Troponin T Total Protein Albumin Triglycerides Arterial Blood Glucose Arterial Blood Ionized Calcium Urine pH Urine Creatinine Salicylates Acetaminophen Coronavirus (PCR) 09/16/20 09/16/20 09/16/20 05:27 09:40 11:48 WBC RBC Hgb Hct MCHC RDW Lymph % (Auto) [place] % (Auto) Lymph # (Auto) [place] # (Auto) Seg Neutrophils % Seg Neuts % (Manual) Lymphocytes % (Manual) Monocytes % (Manual) Nucleated RBC % Seg Neutrophils # Seg Neutrophils # Man Lymphocytes # (Manual) Monocytes # (Manual) PT INR D-Dimer ABG pH POC ABG pCO2 POC ABG pO2 ABG pO2 ABG HCO3 ABG Base Excess ABG Hemoglobin ABG Oxyhemoglobin ABG Sodium ABG Potassium ABG Chloride ABG Glucose Carboxyhemoglobin Sodium Potassium Chloride Carbon Dioxide 31 H BUN 77 H Creatinine 2.9 H Glucose 250 H POC Glucose 275 H 234 H Lactic Acid Calcium Phosphorus Ferritin Total Bilirubin Direct Bilirubin AST ALT Lactate Dehydrogenase Total Creatine Kinase Troponin T Total Protein Albumin Triglycerides Arterial Blood Glucose Arterial Blood Ionized Calcium Urine pH Urine Creatinine Salicylates Acetaminophen Coronavirus (PCR) 09/16/20 09/16/20 09/17/20 17:40 23:23 00:01 WBC RBC Hgb Hct MCHC RDW Lymph % (Auto) [place] % (Auto) Lymph # (Auto) [place] # (Auto) Seg Neutrophils % Seg Neuts % (Manual) Lymphocytes % (Manual) Monocytes % (Manual) Nucleated RBC % Seg Neutrophils # Seg Neutrophils # Man Lymphocytes # (Manual) Monocytes # (Manual) PT INR D-Dimer ABG pH POC ABG pCO2 POC ABG pO2 ABG pO2 ABG HCO3 ABG Base Excess ABG Hemoglobin ABG Oxyhemoglobin ABG Sodium ABG Potassium ABG Chloride ABG Glucose Carboxyhemoglobin Sodium Potassium Chloride Carbon Dioxide BUN Creatinine Glucose POC Glucose 172 H 161 H Lactic Acid 2.10 H* Calcium Phosphorus Ferritin Total Bilirubin Direct Bilirubin AST ALT Lactate Dehydrogenase Total Creatine Kinase Troponin T Total Protein Albumin Triglycerides Arterial Blood Glucose Arterial Blood Ionized Calcium Urine pH Urine Creatinine Salicylates Acetaminophen Coronavirus (PCR) 09/17/20 09/17/20 09/17/20 04:00 04:00 05:09 WBC 19.5 H RBC 3.03 L Hgb 8.6 L Hct 26.3 L MCHC RDW 19.4 H Lymph % (Auto) 8.7 L [place] % (Auto) 13.7 H Lymph # (Auto) [place] # (Auto) 2.7 H Seg Neutrophils % 76.9 H Seg Neuts % (Manual) Lymphocytes % (Manual) Monocytes % (Manual) Nucleated RBC % Seg Neutrophils # 15.0 H Seg Neutrophils # Man Lymphocytes # (Manual) Monocytes # (Manual) PT INR D-Dimer ABG pH POC ABG pCO2 POC ABG pO2 ABG pO2 ABG HCO3 ABG Base Excess ABG Hemoglobin ABG Oxyhemoglobin ABG Sodium ABG Potassium ABG Chloride ABG Glucose Carboxyhemoglobin Sodium 146 H Potassium 3.1 L Chloride Carbon Dioxide BUN 79 H Creatinine 2.6 H Glucose 122 H POC Glucose 116 H Lactic Acid Calcium Phosphorus Ferritin Total Bilirubin Direct Bilirubin AST 64 H ALT 516 H Lactate Dehydrogenase Total Creatine Kinase Troponin T Total Protein 5.7 L Albumin 2.8 L Triglycerides Arterial Blood Glucose Arterial Blood Ionized Calcium Urine pH Urine Creatinine Salicylates Acetaminophen Coronavirus (PCR) 09/17/20 09/17/20 09/18/20 13:52 17:38 05:16 WBC RBC Hgb Hct MCHC RDW Lymph % (Auto) [place] % (Auto) Lymph # (Auto) [place] # (Auto) Seg Neutrophils % Seg Neuts % (Manual) Lymphocytes % (Manual) Monocytes % (Manual) Nucleated RBC % Seg Neutrophils # Seg Neutrophils # Man Lymphocytes # (Manual) Monocytes # (Manual) PT INR D-Dimer ABG pH POC ABG pCO2 POC ABG pO2 ABG pO2 ABG HCO3 ABG Base Excess ABG Hemoglobin ABG Oxyhemoglobin ABG Sodium ABG Potassium ABG Chloride ABG Glucose Carboxyhemoglobin Sodium Potassium Chloride Carbon Dioxide BUN Creatinine Glucose POC Glucose 68 L 126 H Lactic Acid 2.90 H* Calcium Phosphorus Ferritin Total Bilirubin Direct Bilirubin AST ALT Lactate Dehydrogenase Total Creatine Kinase Troponin T Total Protein Albumin Triglycerides Arterial Blood Glucose Arterial Blood Ionized Calcium Urine pH Urine Creatinine Salicylates Acetaminophen Coronavirus (PCR) 09/18/20 09/18/20 09/18/20 05:30 05:30 11:42 WBC 18.2 H RBC 3.18 L Hgb 9.0 L Hct 27.2 L MCHC RDW 18.8 H Lymph % (Auto) [place] % (Auto) Lymph # (Auto) [place] # (Auto) Seg Neutrophils % Seg Neuts % (Manual) Lymphocytes % (Manual) Monocytes % (Manual) Nucleated RBC % Seg Neutrophils # Seg Neutrophils # Man Lymphocytes # (Manual) Monocytes # (Manual) PT INR D-Dimer ABG pH POC ABG pCO2 POC ABG pO2 ABG pO2 ABG HCO3 ABG Base Excess ABG Hemoglobin ABG Oxyhemoglobin ABG Sodium ABG Potassium ABG Chloride ABG Glucose Carboxyhemoglobin Sodium Potassium 3.1 L Chloride Carbon Dioxide BUN 73 H Creatinine 2.6 H Glucose 154 H POC Glucose 140 H Lactic Acid Calcium Phosphorus Ferritin Total Bilirubin Direct Bilirubin AST ALT Lactate Dehydrogenase Total Creatine Kinase Troponin T Total Protein Albumin Triglycerides Arterial Blood Glucose Arterial Blood Ionized Calcium Urine pH Urine Creatinine Salicylates Acetaminophen Coronavirus (PCR) 09/18/20 09/18/20 09/19/20 18:15 23:37 05:13 WBC 22.8 H RBC 3.30 L Hgb 9.2 L Hct 28.1 L MCHC RDW 18.2 H Lymph % (Auto) [place] % (Auto) Lymph # (Auto) [place] # (Auto) Seg Neutrophils % Seg Neuts % (Manual) 87.0 H Lymphocytes % (Manual) 5.0 L Monocytes % (Manual) Nucleated RBC % Seg Neutrophils # Seg Neutrophils # Man 19.8 H Lymphocytes # (Manual) 1.1 L Monocytes # (Manual) 1.6 H PT INR D-Dimer ABG pH POC ABG pCO2 POC ABG pO2 ABG pO2 ABG HCO3 ABG Base Excess ABG Hemoglobin ABG Oxyhemoglobin ABG Sodium ABG Potassium ABG Chloride ABG Glucose Carboxyhemoglobin Sodium Potassium Chloride Carbon Dioxide BUN Creatinine Glucose POC Glucose 149 H 153 H Lactic Acid Calcium Phosphorus Ferritin Total Bilirubin Direct Bilirubin AST ALT Lactate Dehydrogenase Total Creatine Kinase Troponin T Total Protein Albumin Triglycerides Arterial Blood Glucose Arterial Blood Ionized Calcium Urine pH Urine Creatinine Salicylates Acetaminophen Coronavirus (PCR) 09/19/20 09/19/20 09/19/20 05:13 05:25 11:56 WBC RBC Hgb Hct MCHC RDW Lymph % (Auto) [place] % (Auto) Lymph # (Auto) [place] # (Auto) Seg Neutrophils % Seg Neuts % (Manual) Lymphocytes % (Manual) Monocytes % (Manual) Nucleated RBC % Seg Neutrophils # Seg Neutrophils # Man Lymphocytes # (Manual) Monocytes # (Manual) PT INR D-Dimer ABG pH POC ABG pCO2 POC ABG pO2 ABG pO2 ABG HCO3 ABG Base Excess ABG Hemoglobin ABG Oxyhemoglobin ABG Sodium ABG Potassium ABG Chloride ABG Glucose Carboxyhemoglobin Sodium Potassium Chloride Carbon Dioxide BUN 55 H Creatinine 2.3 H Glucose 196 H POC Glucose 168 H 137 H Lactic Acid Calcium Phosphorus Ferritin Total Bilirubin Direct Bilirubin AST ALT Lactate Dehydrogenase Total Creatine Kinase Troponin T Total Protein Albumin Triglycerides Arterial Blood Glucose Arterial Blood Ionized Calcium Urine pH Urine Creatinine Salicylates Acetaminophen Coronavirus (PCR) 09/19/20 09/19/20 09/20/20 17:43 23:43 05:02 WBC RBC Hgb Hct MCHC RDW Lymph % (Auto) [place] % (Auto) Lymph # (Auto) [place] # (Auto) Seg Neutrophils % Seg Neuts % (Manual) Lymphocytes % (Manual) Monocytes % (Manual) Nucleated RBC % Seg Neutrophils # Seg Neutrophils # Man Lymphocytes # (Manual) Monocytes # (Manual) PT INR D-Dimer ABG pH POC ABG pCO2 POC ABG pO2 ABG pO2 ABG HCO3 ABG Base Excess ABG Hemoglobin ABG Oxyhemoglobin ABG Sodium ABG Potassium ABG Chloride ABG Glucose Carboxyhemoglobin Sodium Potassium Chloride Carbon Dioxide BUN Creatinine Glucose POC Glucose 114 H 136 H 163 H Lactic Acid Calcium Phosphorus Ferritin Total Bilirubin Direct Bilirubin AST ALT Lactate Dehydrogenase Total Creatine Kinase Troponin T Total Protein Albumin Triglycerides Arterial Blood Glucose Arterial Blood Ionized Calcium Urine pH Urine Creatinine Salicylates Acetaminophen Coronavirus (PCR) 0209/20/20 09/20/20 05:36 05:36 11:10 WBC 20.1 H RBC 3.07 L Hgb 8.5 L Hct 26.4 L MCHC RDW 18.6 H Lymph % (Auto) 9.6 L [place] % (Auto) 9.6 H Lymph # (Auto) [place] # (Auto) 1.9 H Seg Neutrophils % 79.0 H Seg Neuts % (Manual) Lymphocytes % (Manual) Monocytes % (Manual) Nucleated RBC % Seg Neutrophils # 15.9 H Seg Neutrophils # Man Lymphocytes # (Manual) Monocytes # (Manual) PT INR D-Dimer ABG pH POC ABG pCO2 POC ABG pO2 ABG pO2 ABG HCO3 ABG Base Excess ABG Hemoglobin ABG Oxyhemoglobin ABG Sodium ABG Potassium ABG Chloride ABG Glucose Carboxyhemoglobin Sodium Potassium 3.3 L Chloride Carbon Dioxide BUN 76 H Creatinine 3.6 H D Glucose 213 H POC Glucose 167 H Lactic Acid Calcium Phosphorus Ferritin Total Bilirubin Direct Bilirubin AST ALT Lactate Dehydrogenase Total Creatine Kinase Troponin T Total Protein Albumin Triglycerides Arterial Blood Glucose Arterial Blood Ionized Calcium Urine pH Urine Creatinine Salicylates Acetaminophen Coronavirus (PCR) 09/20/20 09/20/20 09/20/20 14:02 17:24 23:30 WBC RBC Hgb Hct MCHC RDW Lymph % (Auto) [place] % (Auto) Lymph # (Auto) [place] # (Auto) Seg Neutrophils % Seg Neuts % (Manual) Lymphocytes % (Manual) Monocytes % (Manual) Nucleated RBC % Seg Neutrophils # Seg Neutrophils # Man Lymphocytes # (Manual) Monocytes # (Manual) PT INR D-Dimer ABG pH POC ABG pCO2 POC ABG pO2 ABG pO2 ABG HCO3 ABG Base Excess ABG Hemoglobin ABG Oxyhemoglobin ABG Sodium ABG Potassium ABG Chloride ABG Glucose Carboxyhemoglobin Sodium Potassium Chloride Carbon Dioxide BUN Creatinine Glucose POC Glucose 164 H 146 H 147 H Lactic Acid Calcium Phosphorus Ferritin Total Bilirubin Direct Bilirubin AST ALT Lactate Dehydrogenase Total Creatine Kinase Troponin T Total Protein Albumin Triglycerides Arterial Blood Glucose Arterial Blood Ionized Calcium Urine pH Urine Creatinine Salicylates Acetaminophen Coronavirus (PCR) 09/21/20 09/21/20 09/21/20 05:00 05:00 05:24 WBC 17.4 H RBC 2.95 L Hgb 8.3 L Hct 25.8 L MCHC RDW 19.3 H Lymph % (Auto) 11.1 L [place] % (Auto) 11.1 H Lymph # (Auto) [place] # (Auto) 1.9 H Seg Neutrophils % 75.9 H Seg Neuts % (Manual) Lymphocytes % (Manual) Monocytes % (Manual) Nucleated RBC % Seg Neutrophils # 13.2 H Seg Neutrophils # Man Lymphocytes # (Manual) Monocytes # (Manual) PT INR D-Dimer ABG pH POC ABG pCO2 POC ABG pO2 ABG pO2 ABG HCO3 ABG Base Excess ABG Hemoglobin ABG Oxyhemoglobin ABG Sodium ABG Potassium ABG Chloride ABG Glucose Carboxyhemoglobin Sodium Potassium Chloride Carbon Dioxide BUN 60 H Creatinine 3.5 H Glucose 185 H POC Glucose 139 H Lactic Acid Calcium Phosphorus Ferritin Total Bilirubin Direct Bilirubin AST ALT Lactate Dehydrogenase Total Creatine Kinase Troponin T Total Protein Albumin Triglycerides Arterial Blood Glucose Arterial Blood Ionized Calcium Urine pH Urine Creatinine Salicylates Acetaminophen Coronavirus (PCR) 09/21/20 09/21/20 09/21/20 11:59 17:59 23:32 WBC RBC Hgb Hct MCHC RDW Lymph % (Auto) [place] % (Auto) Lymph # (Auto) [place] # (Auto) Seg Neutrophils % Seg Neuts % (Manual) Lymphocytes % (Manual) Monocytes % (Manual) Nucleated RBC % Seg Neutrophils # Seg Neutrophils # Man Lymphocytes # (Manual) Monocytes # (Manual) PT INR D-Dimer ABG pH POC ABG pCO2 POC ABG pO2 ABG pO2 ABG HCO3 ABG Base Excess ABG Hemoglobin ABG Oxyhemoglobin ABG Sodium ABG Potassium ABG Chloride ABG Glucose Carboxyhemoglobin Sodium Potassium Chloride Carbon Dioxide BUN Creatinine Glucose POC Glucose 183 H 141 H 162 H Lactic Acid Calcium Phosphorus Ferritin Total Bilirubin Direct Bilirubin AST ALT Lactate Dehydrogenase Total Creatine Kinase Troponin T Total Protein Albumin Triglycerides Arterial Blood Glucose Arterial Blood Ionized Calcium Urine pH Urine Creatinine Salicylates Acetaminophen Coronavirus (PCR) 09/22/20 09/22/20 09/22/20 05:32 12:07 17:53 WBC RBC Hgb Hct MCHC RDW Lymph % (Auto) [place] % (Auto) Lymph # (Auto) [place] # (Auto) Seg Neutrophils % Seg Neuts % (Manual) Lymphocytes % (Manual) Monocytes % (Manual) Nucleated RBC % Seg Neutrophils # Seg Neutrophils # Man Lymphocytes # (Manual) Monocytes # (Manual) PT INR D-Dimer ABG pH POC ABG pCO2 POC ABG pO2 ABG pO2 ABG HCO3 ABG Base Excess ABG Hemoglobin ABG Oxyhemoglobin ABG Sodium ABG Potassium ABG Chloride ABG Glucose Carboxyhemoglobin Sodium Potassium Chloride Carbon Dioxide BUN Creatinine Glucose POC Glucose 172 H 169 H 178 H Lactic Acid Calcium Phosphorus Ferritin Total Bilirubin Direct Bilirubin AST ALT Lactate Dehydrogenase Total Creatine Kinase Troponin T Total Protein Albumin Triglycerides Arterial Blood Glucose Arterial Blood Ionized Calcium Urine pH Urine Creatinine Salicylates Acetaminophen Coronavirus (PCR) 09/22/20 09/23/20 23:34 06:05 WBC RBC Hgb Hct MCHC RDW Lymph % (Auto) [place] % (Auto) Lymph # (Auto) [place] # (Auto) Seg Neutrophils % Seg Neuts % (Manual) Lymphocytes % (Manual) Monocytes % (Manual) Nucleated RBC % Seg Neutrophils # Seg Neutrophils # Man Lymphocytes # (Manual) Monocytes # (Manual) PT INR D-Dimer ABG pH POC ABG pCO2 POC ABG pO2 ABG pO2 ABG HCO3 ABG Base Excess ABG Hemoglobin ABG Oxyhemoglobin ABG Sodium ABG Potassium ABG Chloride ABG Glucose Carboxyhemoglobin Sodium 147 H Potassium Chloride 109.2 H Carbon Dioxide 21 L BUN 54 H Creatinine 4.2 H Glucose 193 H POC Glucose 151 H Lactic Acid Calcium Phosphorus Ferritin Total Bilirubin Direct Bilirubin AST ALT Lactate Dehydrogenase Total Creatine Kinase Troponin T Total Protein Albumin Triglycerides Arterial Blood Glucose Arterial Blood Ionized Calcium Urine pH Urine Creatinine Salicylates Acetaminophen Coronavirus (PCR)
--- NOTE | 2020-09-23 08:58 | Progress Note ---
Assessment and Plan Assessment and plan: S/p cardiopulmonary arrest Toxic metabolic encephalopathy +/-anoxic injury Acute hypoxic respiratory failure Acute kidney injury Seizure disorder Hyperkalemia COVID-19 pneumonia Sepsis Transaminitis Morbid obesity. 09/15/2020. MRI brain for further evaluation. Continue AEDs of valproic acid and Keppra. Continue hemodialysis per nephrology recommendations. Overall prognosis remains guarded and poor. 09/16/2020. ID recommends continue to monitor patient off of antibiotics. Fever most likely of central etiology. Patient with questionable seizures versus myoclonus from anoxic brain injury. Patient unable to undergo MRI due to body habitus. Continue AEDs per neurology recommendations. Inflammatory markers elevated. Patient was recently hospitalized for COVID-[place] pneumonia [place] [facility] [place] being hospitalized [place]. Patient not a candidate for remdesivir due to hepatic and renal failure. Viral hepatitis panel negative. Overall prognosis extremely poor. 09/17/2020. Fevers have resolved over the past 48 hours. Continue to monitor off antibiotics per ID recommendations. Patient with questionable seizures versus myoclonus from anoxic brain injury. Patient unable to undergo MRI due to body habitus. EEG is nonspecific but given CT of head findings consistent with anoxic encephalopathy, brain injury. Continue AEDs per neurology recommendations. Inflammatory markers elevated. Patient was recently hospitalized for COVID-19 pneumonia [facility] being hospitalized [facility]. Patient not a candidate for remdesivir due to hepatic and renal failure. Viral hepatitis panel negative. Patient is s/p emergent HD on Friday (hyperK) and Friday - 09/08. Patient also S/p HD 09/15. Continue hemodialysis per nephrology recommendations. Patient currently on AC/PRVC mode ventilation with rate of 30, tidal volume 475, FiO2 30% and PEEP of 6. As stated in neuro note, overall prognosis is very poor. 09/18/2020. Fevers have resolved over the past 72 hours. Continue to monitor off antibiotics per ID recommendations. Leukocytosis persistent for the past 4 days. Patient with questionable seizures/myoclonus from anoxic brain injury. Patient unable to undergo MRI due to body habitus. EEG is nonspecific but given CT of head findings consistent with anoxic encephalopathy, brain injury. Continue AEDs per neurology recommendations. Inflammatory markers elevated. Patient was recently hospitalized for COVID-[facility] pneumonia [facility]. Patient not a candidate for remdesivir due to hepatic and renal failure. Viral hepatitis panel negative. Patient currently on AC/PRVC mode ventilation with rate of 30, tidal volume 475, FiO2 30% and PEEP of 6. Overall prognosis remains guarded/poor. 07/19/2021 Fevers have resolved over the past 4 days. Continue to monitor off antibiotics per ID recommendations. Leukocytosis persistent for the past 4 days. Patient with questionable seizures/myoclonus from anoxic brain injury. Patient unable to undergo MRI due to body habitus. EEG is nonspecific but given CT of head findings consistent with anoxic encephalopathy, brain injury. Continue AEDs per neurology recommendations. Inflammatory markers elevated. Patient was recently hospitalized for COVID-19 pneumonia [place] [facility]. Patient not a candidate for remdesivir due to hepatic and renal failure. Viral hepatitis panel negative. Patient currently on AC/PRVC mode ventilation with rate of 30, tidal volume 475, FiO2 30% and PEEP of 6. Overall prognosis remains guarded/poor. 09/20/2020 -Surgery consulted for PEG and trach, will continue to follow. 09/21/2020; patient will have PEG and trach by Dr. hayes today. Prognosis is poor. Continue with current management. 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 09/22/2020; patient had PEG and trach yesterday. 09/23/2020; continue PEG tube feeding. The high probability of a clinically significant, sudden or life threatening deterioration of the [cardiac, respiratory and neurological] system(s) required my full and direct attention, intervention and personal management. The aggregate critical care time was [32] minutes. This time is in addition to time spent performing reported procedures but includes the following: [x] Data Review and interpretation [x] Patient assessment and monitoring of vital signs [x] Documentation [x] Medication orders and management History Interval history: Patient was intubated and sedated Patient is on mechanical ventilator Patient has PEG and trach Hospitalist Physical - Physical exam Narrative exam: On mechanical ventilation. Patient has PEG and a trach The patient appeared well nourished and normally developed. Vital signs as documented. Head exam is unremarkable. No scleral icterus . Neck is without jugular venous distension, thyromegaly, or carotid bruits. Lungs are clear to auscultation. Cardiac exam reveals regular rate and Rhythm. Abdominal exam reveals normal bowel sounds, nontender, no organomegaly. Extremities are nonedematous and both femoral and pedal pulses are normal. 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: On mechanical ventilation through the trach - Constitutional Vitals: Temp Pulse Resp BP Pulse Ox 99.4 F 62 30 H 150/75 100 09/23/20 03:17 09/23/20 07:00 09/23/20 07:00 09/23/20 07:00 09/23/20 07:00 General appearance: Present: other (Intubated sedated) HEART Score - HEART Score Troponin: Troponin T 0.076 ng/mL (0.00-0.029) H 09/07/20 14:00 Results - Labs CBC & Chem 7: 09/21/20 05:00 09/23/20 06:05 Labs: Laboratory Last Values WBC 17.4 K/mm3 (4.5-11.0) H 09/21/20 05:00 RBC 2.95 M/mm3 (3.65-5.03) L 09/21/20 05:00 Hgb 8.3 gm/dl (11.8-15.2) L 09/21/20 05:00 Hct 25.8 % (35.5-45.6) L 09/21/20 05:00 MCV 87 fl (84-94) 09/21/20 05:00 MCH 28 pg (28-32) 09/21/20 05:00 MCHC 32 % (32-34) 09/21/20 05:00 RDW 19.3 % (13.2-15.2) H 09/21/20 05:00 Plt Count 212 K/mm3 (140-440) 09/21/20 05:00 Lymph % (Auto) 11.1 % (13.4-35.0) L 09/21/20 05:00 [place] % (Auto) 11.1 % (0.0-7.3) H 09/21/20 05:00 Eos % (Auto) 1.8 % (0.0-4.3) 09/21/20 05:00 Baso % (Auto) 0.1 % (0.0-1.8) 09/21/20 05:00 Lymph # (Auto) 1.9 K/mm3 (1.2-5.4) 09/21/20 05:00 [place] # (Auto) 1.9 K/mm3 (0.0-0.8) H 09/21/20 05:00 Eos # (Auto) 0.3 K/mm3 (0.0-0.4) 09/21/20 05:00 Baso # (Auto) 0.0 K/mm3 (0.0-0.1) 09/21/20 05:00 Add Manual Diff Complete 09/19/20 05:13 Total Counted 100 09/19/20 05:13 Seg Neutrophils % 75.9 % (40.0-70.0) H 09/21/20 05:00 Seg Neuts % (Manual) 87.0 % (40.0-70.0) H 09/19/20 05:13 Band Neutrophils % 1.0 % 09/19/20 05:13 Lymphocytes % (Manual) 5.0 % (13.4-35.0) L 09/19/20 05:13 Monocytes % (Manual) 7.0 % (0.0-7.3) 09/19/20 05:13 Eosinophils % (Manual) 2.0 % (0.0-4.3) 09/07/20 14:00 Metamyelocytes % 2.0 % 09/08/20 Unknown Nucleated RBC % Not Reportable 09/19/20 05:13 Seg Neutrophils # 13.2 K/mm3 (1.8-7.7) H 09/21/20 05:00 Seg Neutrophils # Man 19.8 K/mm3 (1.8-7.7) H 09/19/20 05:13 Band Neutrophils # 0.2 K/mm3 09/19/20 05:13 Lymphocytes # (Manual) 1.1 K/mm3 (1.2-5.4) L 09/19/20 05:13 Abs React Lymphs (Man) 0.0 K/mm3 09/19/20 05:13 Monocytes # (Manual) 1.6 K/mm3 (0.0-0.8) H 09/19/20 05:13 Eosinophils # (Manual) 0.0 K/mm3 (0.0-0.4) 09/19/20 05:13 Basophils # (Manual) 0.0 K/mm3 (0.0-0.1) 09/19/20 05:13 Metamyelocytes # 0.0 K/mm3 09/19/20 05:13 Myelocytes # 0.0 K/mm3 09/19/20 05:13 Promyelocytes # 0.0 K/mm3 09/19/20 05:13 Blast Cells # 0.0 K/mm3 09/19/20 05:13 WBC Morphology Not Reportable 09/19/20 05:13 Hypersegmented Neuts Not Reportable 09/19/20 05:13 Hyposegmented Neuts Not Reportable 09/19/20 05:13 Hypogranular Neuts Not Reportable 09/19/20 05:13 Smudge Cells Not Reportable 09/19/20 05:13 Toxic Granulation Not Reportable 09/19/20 05:13 Toxic Vacuolation Not Reportable 09/19/20 05:13 Dohle Bodies Not Reportable 09/19/20 05:13 Pelger-Huet Anomaly Not Reportable 09/19/20 05:13 Justus Rods Not Reportable 09/19/20 05:13 Platelet Estimate Consistent w auto 09/19/20 05:13 Clumped Platelets Not Reportable 09/19/20 05:13 Plt Clumps, EDTA Not Reportable 09/19/20 05:13 Large Platelets Not Reportable 09/19/20 05:13 Giant Platelets Not Reportable 09/19/20 05:13 Platelet Satelliting Not Reportable 09/19/20 05:13 Plt Morphology Comment Not Reportable 09/19/20 05:13 RBC Morphology Not Reportable 09/19/20 05:13 Dimorphic RBCs Not Reportable 09/19/20 05:13 Polychromasia Not Reportable 09/19/20 05:13 Hypochromasia Not Reportable 09/19/20 05:13 Poikilocytosis Not Reportable 09/19/20 05:13 Anisocytosis 1+ 09/19/20 05:13 Microcytosis Not Reportable 09/19/20 05:13 Macrocytosis Not Reportable 09/19/20 05:13 Spherocytes Not Reportable 09/19/20 05:13 Pappenheimer Bodies Not Reportable 09/19/20 05:13 Sickle Cells Not Reportable 09/19/20 05:13 Target Cells Not Reportable 09/19/20 05:13 Tear Drop Cells Not Reportable 09/19/20 05:13 Ovalocytes Not Reportable 09/19/20 05:13 Helmet Cells Not Reportable 09/19/20 05:13 Batres-Mullin Bodies Not Reportable 09/19/20 05:13 [place] Rings Not Reportable 09/19/20 05:13 Manjit Cells Not Reportable 09/19/20 05:13 Bite Cells Not Reportable 09/19/20 05:13 Crenated Cell Not Reportable 09/19/20 05:13 Elliptocytes Not Reportable 09/19/20 05:13 Acanthocytes (Spur) Not Reportable 09/19/20 05:13 Rouleaux Not Reportable 09/19/20 05:13 Hemoglobin C Crystals Not Reportable 09/19/20 05:13 Schistocytes Not Reportable 09/19/20 05:13 Malaria parasites Not Reportable 09/19/20 05:13 [place] Bodies Not Reportable 09/19/20 05:13 Hem Pathologist Commnt No 09/19/20 05:13 PT 16.1 Sec. (12.2-14.9) H 09/12/20 04:00 INR 1.31 (0.87-1.13) H 09/12/20 04:00 APTT 32.4 Sec. (24.2-36.6) 09/09/20 10:00 D-Dimer 8315.85 ng/mlDDU (0-234) H 09/07/20 14:00 ABG pH 7.442 (7.320-7.450) 09/14/20 03:54 POC ABG pCO2 42.3 mmHg (32.0-48.0) 09/14/20 03:54 ABG pCO2 33.4 mm Hg 09/11/20 05:40 POC ABG pO2 71.1 mmHg (83-108) L 09/14/20 03:54 ABG pO2 112.1 mm Hg (80.0-90.0) H 09/11/20 05:40 POC ABG HCO3 28.2 09/14/20 03:54 ABG HCO3 28.1 mmol/L (20.0-26.0) H 09/11/20 05:40 ABG O2 Saturation 98.4 % (95.0-99.0) 09/11/20 05:40 ABG O2 Content 11.6 (0.0-44) 09/11/20 05:40 POC ABG Base Excess 3.7 09/14/20 03:54 ABG Base Excess 5.4 mmol/L (-2.0-3.0) H 09/11/20 05:40 ABG Hemoglobin 10.3 (12.0-17.5) L 09/14/20 03:54 ABG Oxyhemoglobin 93.2 (94-98) L 09/13/20 04:47 ABG Carboxyhemoglobin 1.2 % (0.0-5.0) 09/11/20 05:40 ABG Methemoglobin 0.3 (0.0-1.5) 09/13/20 04:47 ABG Sodium 135.2 mmol/L (136.0-145.0) L 09/14/20 03:54 ABG Potassium 3.8 mmol/L (3.40-4.50) 09/14/20 03:54 ABG Chloride 98.0 mmol/L (98-107) 09/14/20 03:54 ABG Glucose 281 mg/dL (65-95) H 09/14/20 03:54 Oxyhemoglobin 96.8 % (95.0-99.0) 09/11/20 05:40 Carboxyhemoglobin 0.4 (0.5-1.5) L 09/13/20 04:47 FiO2 30 09/14/20 03:54 Sodium 147 mmol/L (137-145) H 09/23/20 06:05 Potassium 4.5 mmol/L (3.6-5.0) 09/23/20 06:05 Chloride 109.2 mmol/L (98-107) H 09/23/20 06:05 Carbon Dioxide 21 mmol/L (22-30) L 09/23/20 06:05 Anion Gap 21 mmol/L 09/23/20 06:05 BUN 54 mg/dL (9-20) H 09/23/20 06:05 Creatinine 4.2 mg/dL (0.8-1.3) H 09/23/20 06:05 Estimated GFR 17 ml/min 09/23/20 06:05 BUN/Creatinine Ratio 13 % 09/23/20 06:05 Glucose 193 mg/dL (75-100) H 09/23/20 06:05 POC Glucose 151 mg/dL (70-105) H 09/22/20 23:34 Lactic Acid 2.90 mmol/L (0.7-2.0) H* 09/17/20 13:52 Calcium 8.8 mg/dL (8.4-10.2) 09/23/20 06:05 Phosphorus 8.00 mg/dL (2.5-4.5) H 09/08/20 12:02 Magnesium 1.80 mg/dL (1.7-2.3) 09/08/20 12:02 Ferritin > 2000.0 ng/mL (30.0-300.0) H 09/07/20 14:00 Total Bilirubin 0.90 mg/dL (0.1-1.2) 09/17/20 04:00 Direct Bilirubin 0.5 mg/dL (0-0.2) H 09/08/20 05:00 Indirect Bilirubin 0.5 mg/dL 09/08/20 05:00 AST 64 units/L (5-40) H 09/17/20 04:00 ALT 516 units/L (7-56) H 09/17/20 04:00 Alkaline Phosphatase 87 units/L (35-129) 09/17/20 04:00 Ammonia 50.0 umol/L (25-60) 09/07/20 14:00 Lactate Dehydrogenase 882 units/L (91-180) H 09/07/20 14:00 Total Creatine Kinase 477 units/L (55-170) H 09/07/20 14:00 Troponin T 0.076 ng/mL (0.00-0.029) H 09/07/20 14:00 C-Reactive Protein 1.10 mg/dL (0.00-1.30) 09/07/20 14:00 Total Protein 5.7 g/dL (6.3-8.2) L 09/17/20 04:00 Albumin 2.8 g/dL (3.9-5) L 09/17/20 04:00 Albumin/Globulin Ratio 1.0 % 09/17/20 04:00 Triglycerides 220 mg/dL (2-149) H 09/12/20 Unknown Procalcitonin 1.52 ng/mL (<0.15) 09/17/20 13:02 TSH 2.290 mlU/mL (0.270-4.200) 09/07/20 14:00 Arterial Blood Glucose 281 mg/dL (65-95) H 09/14/20 03:54 Arterial Blood Ionized Calcium 4.6 mg/dL (4.6-5.3) 09/14/20 03:54 Urine Color Straw (Yellow) 09/07/20 13:08 Urine Turbidity Slightly-cloudy (Clear) 09/07/20 13:08 Urine pH 8.0 (5.0-7.0) H 09/07/20 13:08 Ur Specific [place] 1.006 (1.003-1.030) 09/07/20 13:08 Urine Protein 100 mg/dl mg/dL (Negative) 09/07/20 13:08 Urine Glucose (UA) Neg mg/dL (Negative) 09/07/20 13:08 Urine Ketones Neg mg/dL (Negative) 09/07/20 13:08 Urine Blood Neg (Negative) 09/07/20 13:08 Urine Nitrite Neg (Negative) 09/07/20 13:08 Urine Bilirubin Neg (Negative) 09/07/20 13:08 Urine Urobilinogen < 2.0 mg/dL (<2.0) 09/07/20 13:08 Ur Leukocyte Esterase Neg (Negative) 09/07/20 13:08 Urine WBC (Auto) 4.0 /HPF (0.0-6.0) 09/07/20 13:08 Urine RBC (Auto) 18.0 /HPF (0.0-6.0) 09/07/20 13:08 U Epithel Cells (Auto) 1.0 /HPF (0-13.0) 09/07/20 13:08 Urine Mucus Few /HPF 09/07/20 13:08 Urine Sperm 3+ /HPF (ACTIVITIES ATTENDANT) 09/07/20 13:08 Urine Creatinine 182.4 mg/dL (0.1-20.0) H 09/08/20 Unknown Urine Sodium 40 mmol/L 09/08/20 Unknown Salicylates < 0.3 mg/dL (2.8-20.0) L 09/07/20 14:00 Acetaminophen 5.0 ug/mL (10.0-30.0) L 09/07/20 14:00 Plasma/Serum Alcohol < 0.01 % (0-0.07) 09/07/20 14:00 Coronavirus (PCR) Negative (Negative) 09/19/20 Unknown Hepatitis A IgM Ab Non-reactive (NonReactive) 09/07/20 14:00 Hep Bs Antigen Non-reactive (Negative) 09/07/20 14:00 Hep B Core IgM Ab Non-reactive (NonReactive) 09/07/20 14:00 Hepatitis C Antibody Non-reactive (NonReactive) 09/07/20 14:00 HIV 1&2 Antibody Rapid Non react (Non React) 09/07/20 14:34 HIV P24 Antigen Non react (Non React) 09/07/20 14:34 Blood Type O POSITIVE 09/09/20 10:00 Antibody Screen Negative 09/07/20 14:00 Mae/IV: Voiding Method Indwelling Catheter IV Catheter Type [Right Triple Lumen Cath Femoral] IV Catheter Type [Left Peripheral IV Antecubital] IV Catheter Type [Left Hand] Peripheral IV IV Catheter Type [Right Peripheral IV Antecubital] Active Medications - Current Medications Current Medications: Generic Name Dose Route Start Last Admin Trade Name Freq PRN Reason Stop Dose Admin Acetaminophen 400 mg 09/10/20 20:50 09/14/20 23:38 Acetaminophen 325 Mg/10.15 Ml Oral Liqd Unit Dose PO 400 mg Q4HR PRN Administration Non Cardiac Pain or Temp>100.5 Lipase/Protease/Amylase 1 each 09/09/20 09:40 Lipase 10,500/Protease 25,000/Amylase 43,750 (Units) Dr Armenta FEEDTUBE PRN PRN For Clogged Feeding Tube Famotidine 20 mg 09/20/20 11:00 09/22/20 09:35 Famotidine 20 Mg/2 Ml Inj IV 20 mg DAILY TAYLOR Administration Hydrophilic Ointment 1 applic 09/07/20 13:08 Lip Therapy Vaseline TP Q2HR PRN Dry Lips Sodium Chloride 100 mls @ 999 mls/hr 09/09/20 13:36 Nacl 0.9% IV JAYJAY PRN Hypotension Levetiracetam 1,500 mg/ 115 mls @ 400 mls/hr 09/11/20 10:00 09/22/20 21:15 Dextrose IV 400 mls/hr BID TAYLOR Administration Valproate Sodium 1,000 mg/ 110 mls @ 100 mls/hr 09/14/20 22:00 09/22/20 21:15 Sodium Chloride IV 100 mls/hr Q12HR TAYLOR Administration Insulin Human Lispro 0 unit 09/12/20 12:00 09/23/20 06:07 Insulin Lispro 100 Unit/Ml SUB-Q Not Given Q6HR [facility] Protocol Lansoprazole 30 mg 09/11/20 11:00 09/19/20 22:04 Lansoprazole 30 Mg Solutab FEEDTUBE 30 mg BID TAYLOR Administration Lorazepam 2 mg 09/08/20 00:14 09/14/20 13:36 Lorazepam 2 Mg/Ml Vial IV 2 mg Q4H PRN Administration Seizures Metoclopramide HCl 5 mg 09/22/20 12:00 09/23/20 06:07 Metoclopramide 10 Mg/2 Ml Inj IV 5 mg Q6HR TAYLOR Administration Multi-Ingred Cream/Lotion/Oil/Oint 1 applic 09/07/20 13:08 09/20/20 10:50 Mineral Oil/Petrolatum, White Ophth Oint 3.5 Gm OU 1 applic Q4HR PRN Administration Dry Eye(s) Multivitamins 5 ml 09/09/20 12:00 09/22/20 09:35 Multivitamins 5 Ml Oral Liquid PO 5 ml QDAY TAYLOR Administration Ondansetron HCl 4 mg 09/07/20 17:55 09/19/20 04:00 Ondansetron 4 Mg/2 Ml Inj IV 4 mg Q8H PRN Administration Nausea And Vomiting Senna/Docusate Sodium 2 tab 09/20/20 11:00 Sennosides/Docusate Sodium 8.6/50 Mg Tab PO BID PRN Laxative Effect Simple Syrup 15 ml 09/09/20 09:40 09/17/20 17:43 Simple Syrup 15 Ml FEEDTUBE 15 ml PRN PRN Administration Hypoglycemia Simple Syrup 30 ml 09/09/20 09:40 Simple Syrup 15 Ml FEEDTUBE PRN PRN Hypoglycemia Sodium Bicarbonate 325 mg 09/09/20 09:40 Sodium Bicarbonate 325 Mg Tab FEEDTUBE PRN PRN For Clogged Feeding Tube Sodium Chloride 10 ml 09/07/20 22:00 09/22/20 21:15 Sodium Chloride 0.9% 10 Ml Flush Syringe IV 10 ml BID TAYLOR Administration Sodium Chloride 10 ml 09/07/20 17:55 Sodium Chloride 0.9% 10 Ml Flush Syringe IV PRN PRN LINE FLUSH Nutrition/Malnutrition Assess - Dietary Evaluation Nutrition/Malnutrition Findings: Nutrition Notes Start: 09/08/20 12:01 Freq: Status: Active Protocol: Document 09/22/20 10:47 AT (Rec: 09/22/20 11:09 AT [email or web address]) Co-Sign 09/22/20 10:47 MK Nutrition Notes Initial or Follow up Reassessment Current Diagnosis Acute Kidney Injury, Respiratory Failure Other Pertinent Diagnosis on HD, cardiac arrest, COVID ( +), metabolic encephalopathy, pneu Current Diet Nepro 1.8 at 45 mL/hr (goal rate) Labs/Tests Reviewed Pertinent Medications MVI Humalog Height 6 ft Weight 166.5 kg [place] Body Weight (kg) 80.90 BMI 49.8 Weight Status Morbidly Obese Subjective/Other Information Follow up for PEG placement and TF restart. Pt is s/p PEG placement. Pt remains on vent. Per chart, pt had residuals of 75mL when TF was restarted at 20 mL/hr. Per MD, pt will start bowel regimen and hold feedings for 24 hr. Per MD, pt 's reports NKFA. Awaiting updated weight. Percent of energy/protein needs met: 43%/26% Burn Absent Trauma Absent GI Symptoms Vomiting Current % PO Negligible Minimum of two criteria No physical signs of malnutrition #1 Nutrition Diagnosis Inadequate oral intake Diagnosis Progress(for reassessment Continues documentation) Is patient on ventilator? Yes Is Patient Ambulatory and/or Out of Bed No REE-([facility]-confined to bed) 2995.752 Kcal/Kg value to use for calculation 12 Approximate Energy Requirements Using 1998 kcal/Kg Calculation Used for Recommendations Kcal/kg Additional Notes PRO needs: >149g (>1.2g/kg AdBW 124kg) Fluid needs: 2468-2586 mL or per Nutrition Intervention Change Diet Order: Continue TF Nutrition Support: Nepro 1.8 at 45 mL/hr Flush 200 mL q4h Kcal 1,944 Protein (gm) 87 Fluid (mL) 785 Goal #1 Meet nutrient needs as best as possible with TF Anticipated Discharge Needs: TF Follow-Up By: 09/25/20 Additional Comments F/U for TF restart and weight
--- NOTE | 2020-09-23 09:08 | Progress Note ---
Assessment and Plan Impression: * Nonoliguric RYAN secondary to ATN * Severe hyperkalemia - resolved * COVID 19 PNA * s/p OOH cardiac arrest * Acute hypoxic respiratory failure * Seizure activity * Anemia Plan: * Patient is s/p emergent HD - 09/08 * Continue MWF * Check labs daily * Strict I/O * Monitor for renal recovery * Keep MAP > 65 * Vent management per CCM * Steroids per primary team/ID * Dose medications for renal function * Avoid potential nephrotoxins * Prognosis is guarded Subjective Date of service: 09/23/20 Principal diagnosis: Abnormal LFTs, s/p cardiac arrest, acute kidney injury with ATN Interval history: resting in bed today Objective - Exam Narrative Exam: Deferred for PPE conservation and to prevent spread of infection - Vital Signs Vital signs: Vital Signs - 12hr 09/22/20 09/22/20 09/22/20 21:15 21:30 21:45 Temperature Pulse Rate 60 60 61 Pulse Rate [ Apical] Respiratory 29 H 29 H 24 Rate Blood Pressure 152/66 164/70 169/76 O2 Sat by Pulse 100 100 100 Oximetry O2 Sat by Pulse Oximetry [ Assessment] 09/22/20 09/22/20 09/22/20 22:00 22:10 22:15 Temperature Pulse Rate 60 59 L 60 Pulse Rate [ Apical] Respiratory 29 H 30 H 29 H Rate Blood Pressure 163/69 163/69 156/65 O2 Sat by Pulse 99 99 100 Oximetry O2 Sat by Pulse Oximetry [ Assessment] 09/22/20 09/22/20 09/22/20 22:30 22:45 23:00 Temperature Pulse Rate 62 61 59 L Pulse Rate [ Apical] Respiratory 30 H 25 H 30 H Rate Blood Pressure 163/64 153/66 144/67 O2 Sat by Pulse 98 100 100 Oximetry O2 Sat by Pulse 97 Oximetry [ Assessment] 09/22/20 09/22/20 09/22/20 23:15 23:30 23:45 Temperature Pulse Rate 60 59 L 63 Pulse Rate [ Apical] Respiratory 30 H 30 H 30 H Rate Blood Pressure 149/63 162/72 161/68 O2 Sat by Pulse 100 100 100 Oximetry O2 Sat by Pulse Oximetry [ Assessment] 09/22/20 09/23/20 09/23/20 23:51 00:00 00:15 Temperature 98.7 F Pulse Rate 61 60 Pulse Rate [ 58 L Apical] Respiratory 29 H 30 H Rate Blood Pressure 156/71 159/71 O2 Sat by Pulse 100 100 Oximetry O2 Sat by Pulse Oximetry [ Assessment] 09/23/20 09/23/20 09/23/20 00:30 00:45 01:00 Temperature Pulse Rate 60 60 59 L Pulse Rate [ Apical] Respiratory 28 H 28 H 30 H Rate Blood Pressure 159/70 152/69 152/69 O2 Sat by Pulse 100 100 100 Oximetry O2 Sat by Pulse Oximetry [ Assessment] 09/23/20 09/23/20 09/23/20 01:15 01:30 01:45 Temperature Pulse Rate 60 60 61 Pulse Rate [ Apical] Respiratory 28 H 21 30 H Rate Blood Pressure 152/68 156/66 162/70 O2 Sat by Pulse 100 100 100 Oximetry O2 Sat by Pulse Oximetry [ Assessment] 09/23/20 09/23/20 09/23/20 02:00 02:15 02:30 Temperature Pulse Rate 61 61 60 Pulse Rate [ Apical] Respiratory 31 H 30 H 32 H Rate Blood Pressure 157/68 162/72 158/74 O2 Sat by Pulse 100 100 100 Oximetry O2 Sat by Pulse Oximetry [ Assessment] 09/23/20 09/23/20 09/23/20 02:45 03:00 03:15 Temperature Pulse Rate 61 60 60 Pulse Rate [ Apical] Respiratory 30 H 31 H 30 H Rate Blood Pressure 158/73 160/71 169/68 O2 Sat by Pulse 100 100 99 Oximetry O2 Sat by Pulse Oximetry [ Assessment] 09/23/20 09/23/20 09/23/20 03:17 03:30 03:45 Temperature 99.4 F Pulse Rate 59 L 60 Pulse Rate [ Apical] Respiratory 30 H 30 H Rate Blood Pressure 148/67 163/68 O2 Sat by Pulse 100 100 Oximetry O2 Sat by Pulse Oximetry [ Assessment] 09/23/20 09/23/20 09/23/20 03:47 04:00 04:15 Temperature Pulse Rate 59 L 59 L 63 Pulse Rate [ Apical] Respiratory 30 H 28 H Rate Blood Pressure 167/65 152/75 O2 Sat by Pulse 100 100 Oximetry O2 Sat by Pulse Oximetry [ Assessment] 09/23/20 09/23/20 09/23/20 04:30 04:45 05:00 Temperature Pulse Rate 61 60 60 Pulse Rate [ Apical] Respiratory 28 H 28 H 30 H Rate Blood Pressure 171/71 163/68 156/64 O2 Sat by Pulse 100 100 100 Oximetry O2 Sat by Pulse Oximetry [ Assessment] 09/23/20 09/23/20 09/23/20 05:15 05:30 05:45 Temperature Pulse Rate 60 60 62 Pulse Rate [ Apical] Respiratory 25 H 29 H 29 H Rate Blood Pressure 148/66 154/66 167/75 O2 Sat by Pulse 100 100 100 Oximetry O2 Sat by Pulse Oximetry [ Assessment] 09/23/20 09/23/20 09/23/20 06:00 06:15 06:30 Temperature Pulse Rate 70 66 63 Pulse Rate [ Apical] Respiratory 25 H 30 H 29 H Rate Blood Pressure 167/75 146/73 141/73 O2 Sat by Pulse 100 100 Oximetry O2 Sat by Pulse Oximetry [ Assessment] 09/23/20 09/23/20 09/23/20 06:45 07:00 07:15 Temperature Pulse Rate 62 62 63 Pulse Rate [ Apical] Respiratory 25 H 30 H 25 H Rate Blood Pressure 152/77 150/75 146/75 O2 Sat by Pulse 100 100 100 Oximetry O2 Sat by Pulse Oximetry [ Assessment] 09/23/20 09/23/20 09/23/20 07:30 07:45 08:00 Temperature Pulse Rate 62 62 62 Pulse Rate [ Apical] Respiratory 30 H 31 H 27 H Rate Blood Pressure 151/72 153/77 171/83 O2 Sat by Pulse 100 100 100 Oximetry O2 Sat by Pulse Oximetry [ Assessment] 09/23/20 09/23/20 09/23/20 08:15 08:30 08:45 Temperature Pulse Rate 62 61 62 Pulse Rate [ Apical] Respiratory 25 H 27 H 31 H Rate Blood Pressure 160/84 162/79 150/81 O2 Sat by Pulse 100 100 100 Oximetry O2 Sat by Pulse Oximetry [ Assessment] 09/23/20 09:00 Temperature Pulse Rate 62 Pulse Rate [ Apical] Respiratory 25 H Rate Blood Pressure 147/81 O2 Sat by Pulse 100 Oximetry O2 Sat by Pulse Oximetry [ Assessment] - Lab 09/21/20 05:00 09/23/20 06:05 Most recent lab results ABG pH 7.442 (7.320-7.450) 09/14/20 03:54 ABG pCO2 33.4 mm Hg 09/11/20 05:40 ABG pO2 112.1 mm Hg (80.0-90.0) H 09/11/20 05:40 ABG HCO3 28.1 mmol/L (20.0-26.0) H 09/11/20 05:40 ABG O2 Saturation 98.4 % (95.0-99.0) 09/11/20 05:40 Calcium 8.8 mg/dL (8.4-10.2) 09/23/20 06:05 Phosphorus 8.00 mg/dL (2.5-4.5) H 09/08/20 12:02 Magnesium 1.80 mg/dL (1.7-2.3) 09/08/20 12:02 Urine Creatinine 182.4 mg/dL (0.1-20.0) H 09/08/20 Unknown Urine Sodium 40 mmol/L 09/08/20 Unknown Medications & Allergies - Medications Allergies/Adverse Reactions: Allergies No Known Allergies Allergy (Verified 09/21/20 21:00) Verified with , no known drug allergies. Home Medications: Home Medications Medication Instructions Recorded Confirmed Last Taken Type Albuterol Sulfate 60 mcg IH PRN 09/11/20 09/11/20 Unknown History Cholecalciferol (Vitamin D3) 25 tab PO DAILY 09/11/20 09/11/20 Unknown History Cozaar 25 tab PO DAILY 09/11/20 09/11/20 Unknown History HumaLOG 14 unit SQ AC 09/11/20 09/11/20 Unknown History Hydralazine HCl 50 tab PO TID 09/11/20 09/11/20 Unknown History Isosorbide Dinitrate 30 mg PO DAILY 09/11/20 09/11/20 Unknown History Lantus VIAL 54 units SQ HS 09/11/20 09/11/20 Unknown History Lasix 20 tab PO DAILY 09/11/20 09/11/20 Unknown History Nifedipine 30 tab PO DAILY 09/11/20 09/11/20 Unknown History Active Medications: Generic Name Dose Route Start Last Admin Trade Name Freq PRN Reason Stop Dose Admin Acetaminophen 400 mg 09/10/20 20:50 09/14/20 23:38 Acetaminophen 325 Mg/10.15 Ml Oral Liqd Unit Dose PO 400 mg Q4HR PRN Administration Non Cardiac Pain or Temp>100.5 Lipase/Protease/Amylase 1 each 09/09/20 09:40 Lipase 10,500/Protease 25,000/Amylase 43,750 (Units) Dr Armenta FEEDTUBE PRN PRN For Clogged Feeding Tube Famotidine 20 mg 09/20/20 11:00 09/22/20 09:35 Famotidine 20 Mg/2 Ml Inj IV 20 mg DAILY TAYLOR Administration Hydralazine HCl 50 mg 09/23/20 14:00 Hydralazine 25 Mg Tab PO Q8HR TAYLOR Hydrophilic Ointment 1 applic 09/07/20 13:08 Lip Therapy Vaseline TP Q2HR PRN Dry Lips Sodium Chloride 100 mls @ 999 mls/hr 09/09/20 13:36 Nacl 0.9% IV JAYJAY PRN Hypotension Levetiracetam 1,500 mg/ 115 mls @ 400 mls/hr 09/11/20 10:00 09/22/20 21:15 Dextrose IV 400 mls/hr BID TAYLOR Administration Valproate Sodium 1,000 mg/ 110 mls @ 100 mls/hr 09/14/20 22:00 09/22/20 21:15 Sodium Chloride IV 100 mls/hr Q12HR TAYLOR Administration Insulin Human Lispro 0 unit 09/12/20 12:00 09/23/20 06:07 Insulin Lispro 100 Unit/Ml SUB-Q Not Given Q6HR TAYLOR Protocol Lansoprazole 30 mg 09/11/20 11:00 09/19/20 22:04 Lansoprazole 30 Mg Solutab FEEDTUBE 30 mg BID TAYLOR Administration Lorazepam 2 mg 09/08/20 00:14 09/14/20 13:36 Lorazepam 2 Mg/Ml Vial IV 2 mg Q4H PRN Administration Seizures Metoclopramide HCl 5 mg 09/22/20 12:00 09/23/20 06:07 Metoclopramide 10 Mg/2 Ml Inj IV 5 mg Q6HR TAYLOR Administration Multi-Ingred Cream/Lotion/Oil/Oint 1 applic 09/07/20 13:08 09/20/20 10:50 Mineral Oil/Petrolatum, White Ophth Oint 3.5 Gm OU 1 applic Q4HR PRN Administration Dry Eye(s) Multivitamins 5 ml 09/09/20 12:00 09/22/20 09:35 Multivitamins 5 Ml Oral Liquid PO 5 ml QDAY TAYLOR Administration Ondansetron HCl 4 mg 09/07/20 17:55 09/19/20 04:00 Ondansetron 4 Mg/2 Ml Inj IV 4 mg Q8H PRN Administration Nausea And Vomiting Senna/Docusate Sodium 2 tab 09/20/20 11:00 Sennosides/Docusate Sodium 8.6/50 Mg Tab PO BID PRN Laxative Effect Simple Syrup 15 ml 09/09/20 09:40 09/17/20 17:43 Simple Syrup 15 Ml FEEDTUBE 15 ml PRN PRN Administration Hypoglycemia Simple Syrup 30 ml 09/09/20 09:40 Simple Syrup 15 Ml FEEDTUBE PRN PRN Hypoglycemia Sodium Bicarbonate 325 mg 09/09/20 09:40 Sodium Bicarbonate 325 Mg Tab FEEDTUBE PRN PRN For Clogged Feeding Tube Sodium Chloride 10 ml 09/07/20 22:00 09/22/20 21:15 Sodium Chloride 0.9% 10 Ml Flush Syringe IV 10 ml BID TAYLOR Administration Sodium Chloride 10 ml 09/07/20 17:55 Sodium Chloride 0.9% 10 Ml Flush Syringe IV PRN PRN LINE FLUSH
[2020-09-23] MEDS: MULTIVITAMINS 5 ML ORAL LIQUID PO SCH (09:30)
[2020-09-23] MEDS: FAMOTIDINE 20 MG/2 ML INJ IV SCH (09:30)
[2020-09-23] MEDS: levETIRAcetam 1,500 MG in DEXTROSE 5% IN WATER 100 ML IV SCH ×2 (09:31→21:29)
[2020-09-23] MEDS: VALPROATE SODIUM 1,000 MG in SODIUM CHLORIDE 0.9% 100 ML IV SCH ×2 (09:31→21:29)
[2020-09-23] MEDS: hydrALAZINE 25 MG TAB PO SCH ×2 (14:16→21:29)
[2020-09-24] MEDS: METOCLOPRAMIDE 10 MG/2 ML INJ IV SCH ×4 (00:18→17:44)
[2020-09-24] MEDS: INSULIN LISPRO 100 UNIT/ML SUB-Q SCH ×4 (00:27→17:32)
[2020-09-24] MEDS: hydrALAZINE 25 MG TAB PO SCH ×3 (05:43→21:59)
[2020-09-24 06:42] LABS: Calcium 9.4 mg/dL (8.4-10.2)
[2020-09-24] MEDS: FAMOTIDINE 20 MG/2 ML INJ IV SCH (09:04)
[2020-09-24] MEDS: MULTIVITAMINS 5 ML ORAL LIQUID PO SCH (09:04)
[2020-09-24] MEDS: VALPROATE SODIUM 1,000 MG in SODIUM CHLORIDE 0.9% 100 ML IV SCH ×2 (09:05→21:59)
[2020-09-24] MEDS: levETIRAcetam 1,500 MG in DEXTROSE 5% IN WATER 100 ML IV SCH ×2 (09:05→21:59)
--- NOTE | 2020-09-24 09:23 | Progress Note ---
Assessment and Plan Assessment and plan: S/p cardiopulmonary arrest Toxic metabolic encephalopathy +/-anoxic injury Acute hypoxic respiratory failure Acute kidney injury Seizure disorder Hyperkalemia COVID-19 pneumonia Sepsis Transaminitis Morbid obesity. 09/15/2020. MRI brain for further evaluation. Continue AEDs of valproic acid and Keppra. Continue hemodialysis per nephrology recommendations. Overall prognosis remains guarded and poor. 09/16/2020. ID recommends continue to monitor patient off of antibiotics. Fever most likely of central etiology. Patient with questionable seizures versus myoclonus from anoxic brain injury. Patient unable to undergo MRI due to body habitus. Continue AEDs per neurology recommendations. Inflammatory markers elevated. Patient was recently hospitalized for COVID-19 pneumonia [facility] being [facility]. Patient not a candidate for remdesivir due to hepatic and renal failure. Viral hepatitis panel negative. Overall prognosis extremely poor. 09/17/2020. Fevers have resolved over the past 48 hours. Continue to monitor off antibiotics per ID recommendations. Patient with questionable seizures versus myoclonus from anoxic brain injury. Patient unable to undergo MRI due to body habitus. EEG is nonspecific but given CT of head findings consistent with anoxic encephalopathy, brain injury. Continue AEDs per neurology recommendations. Inflammatory markers elevated. Patient was recently hospitalized for COVID-19 pneumonia at [facility] being [facility]. Patient not a candidate for remdesivir due to hepatic and renal failure. Viral hepatitis panel negative. Patient is s/p emergent HD on Friday (hyperK) and Friday - 09/08. Patient also S/p HD 09/15. Continue hemodialysis per nephrology recommendations. Patient currently on AC/PRVC mode ventilation with rate of 30, tidal volume 475, FiO2 30% and PEEP of 6. As stated in neuro note, overall prognosis is very poor. 09/18/2020. Fevers have resolved over the past 72 hours. Continue to monitor off antibiotics per ID recommendations. Leukocytosis persistent for the past 4 days. Patient with questionable seizures/myoclonus from anoxic brain injury. Patient unable to undergo MRI due to body habitus. EEG is nonspecific but given CT of head findings consistent with anoxic encephalopathy, brain injury. Continue AEDs per neurology recommendations. Inflammatory markers elevated. Patient was recently hospitalized for COVID-19 pneumonia [facility]. Patient not a candidate for remdesivir due to hepatic and renal failure. Viral hepatitis panel negative. Patient currently on AC/PRVC mode ventilation with rate of 30, tidal volume 475, FiO2 30% and PEEP of 6. Overall prognosis remains guarded/poor. 07/19/2021 Fevers have resolved over the past 4 days. Continue to monitor off antibiotics per ID recommendations. Leukocytosis persistent for the past 4 days. Patient with questionable seizures/myoclonus from anoxic brain injury. Patient unable to undergo MRI due to body habitus. EEG is nonspecific but given CT of head findings consistent with anoxic encephalopathy, brain injury. Continue AEDs per neurology recommendations. Inflammatory markers elevated. Patient was recently hospitalized for COVID-19 pneumonia [facility]. Patient not a candidate for remdesivir due to hepatic and renal failure. Viral hepatitis panel negative. Patient currently on AC/PRVC mode ventilation with rate of 30, tidal volume 475, FiO2 30% and PEEP of 6. Overall prognosis remains guarded/poor. 09/20/2020 -Surgery consulted for PEG and trach, will continue to follow. 09/21/2020; patient will have PEG and trach by Dr. hayes today. Prognosis is poor. Continue with current management. Police Investigator is following for vent management. 09/22/2020; patient had PEG and trach yesterday. 09/23/2020; continue PEG Tube Feeding. 07/24/2021; continue PEG tube feeding, patient is on Keppra, lorazepam and phenytoin per neurology recommendation. Patient is on hemodialysis and nephrology is following. Management of mechanical ventilation for CCM. The high probability of a clinically significant, sudden or life threatening deterioration of the [cardiac, respiratory and neurological] system(s) required my full and direct attention, intervention and personal management. The aggregate critical care time was [32] minutes. This time is in addition to time spent performing reported procedures but includes the following: [x] Data Review and interpretation [x] Patient assessment and monitoring of vital signs [x] Documentation [x] Medication orders and management History Interval history: Patient is on mechanical ventilation through PEG, wean as tolerated Patient is noncommunicative Hospitalist Physical - Physical exam Narrative exam: On mechanical ventilation. Patient has PEG and a trach The patient appeared well nourished and normally developed. Vital signs as documented. Head exam is unremarkable. No scleral icterus . Neck is without jugular venous distension, thyromegaly, or carotid bruits. Lungs are clear to auscultation. Cardiac exam reveals regular rate and Rhythm. Abdominal exam reveals normal bowel sounds, nontender, no organomegaly. Extremities are nonedematous and both femoral and pedal pulses are normal. 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 - Constitutional Vitals: Temp Pulse Resp BP Pulse Ox 97.9 F 60 12 129/66 100 09/24/20 08:00 09/24/20 08:30 09/24/20 06:16 09/24/20 08:30 09/24/20 08:30 General appearance: Present: other (Intubated sedated) HEART Score - HEART Score Troponin: Troponin T 0.076 ng/mL (0.00-0.029) H 09/07/20 14:00 Results - Labs CBC & Chem 7: 09/21/20 05:00 09/24/20 05:44 Labs: Laboratory Last Values WBC 17.4 K/mm3 (4.5-11.0) H 09/21/20 05:00 RBC 2.95 M/mm3 (3.65-5.03) L 09/21/20 05:00 Hgb 8.3 gm/dl (11.8-15.2) L 09/21/20 05:00 Hct 25.8 % (35.5-45.6) L 09/21/20 05:00 MCV 87 fl (84-94) 09/21/20 05:00 MCH 28 pg (28-32) 09/21/20 05:00 MCHC 32 % (32-34) 09/21/20 05:00 RDW 19.3 % (13.2-15.2) H 09/21/20 05:00 Plt Count 212 K/mm3 (140-440) 09/21/20 05:00 Lymph % (Auto) 11.1 % (13.4-35.0) L 09/21/20 05:00 [place] % (Auto) 11.1 % (0.0-7.3) H 09/21/20 05:00 Eos % (Auto) 1.8 % (0.0-4.3) 09/21/20 05:00 Baso % (Auto) 0.1 % (0.0-1.8) 09/21/20 05:00 Lymph # (Auto) 1.9 K/mm3 (1.2-5.4) 09/21/20 05:00 [place] # (Auto) 1.9 K/mm3 (0.0-0.8) H 09/21/20 05:00 Eos # (Auto) 0.3 K/mm3 (0.0-0.4) 09/21/20 05:00 Baso # (Auto) 0.0 K/mm3 (0.0-0.1) 09/21/20 05:00 Add Manual Diff Complete 09/19/20 05:13 Total Counted 100 09/19/20 05:13 Seg Neutrophils % 75.9 % (40.0-70.0) H 09/21/20 05:00 Seg Neuts % (Manual) 87.0 % (40.0-70.0) H 09/19/20 05:13 Band Neutrophils % 1.0 % 09/19/20 05:13 Lymphocytes % (Manual) 5.0 % (13.4-35.0) L 09/19/20 05:13 Monocytes % (Manual) 7.0 % (0.0-7.3) 09/19/20 05:13 Eosinophils % (Manual) 2.0 % (0.0-4.3) 09/07/20 14:00 Metamyelocytes % 2.0 % 09/08/20 Unknown Nucleated RBC % Not Reportable 09/19/20 05:13 Seg Neutrophils # 13.2 K/mm3 (1.8-7.7) H 09/21/20 05:00 Seg Neutrophils # Man 19.8 K/mm3 (1.8-7.7) H 09/19/20 05:13 Band Neutrophils # 0.2 K/mm3 09/19/20 05:13 Lymphocytes # (Manual) 1.1 K/mm3 (1.2-5.4) L 09/19/20 05:13 Abs React Lymphs (Man) 0.0 K/mm3 09/19/20 05:13 Monocytes # (Manual) 1.6 K/mm3 (0.0-0.8) H 09/19/20 05:13 Eosinophils # (Manual) 0.0 K/mm3 (0.0-0.4) 09/19/20 05:13 Basophils # (Manual) 0.0 K/mm3 (0.0-0.1) 09/19/20 05:13 Metamyelocytes # 0.0 K/mm3 09/19/20 05:13 Myelocytes # 0.0 K/mm3 09/19/20 05:13 Promyelocytes # 0.0 K/mm3 09/19/20 05:13 Blast Cells # 0.0 K/mm3 09/19/20 05:13 WBC Morphology Not Reportable 09/19/20 05:13 Hypersegmented Neuts Not Reportable 09/19/20 05:13 Hyposegmented Neuts Not Reportable 09/19/20 05:13 Hypogranular Neuts Not Reportable 09/19/20 05:13 Smudge Cells Not Reportable 09/19/20 05:13 Toxic Granulation Not Reportable 09/19/20 05:13 Toxic Vacuolation Not Reportable 09/19/20 05:13 Dohle Bodies Not Reportable 09/19/20 05:13 Pelger-Huet Anomaly Not Reportable 09/19/20 05:13 [place] Rods Not Reportable 09/19/20 05:13 Platelet Estimate Consistent w auto 09/19/20 05:13 Clumped Platelets Not Reportable 09/19/20 05:13 Plt Clumps, EDTA Not Reportable 09/19/20 05:13 Large Platelets Not Reportable 09/19/20 05:13 Giant Platelets Not Reportable 09/19/20 05:13 Platelet Satelliting Not Reportable 09/19/20 05:13 Plt Morphology Comment Not Reportable 09/19/20 05:13 RBC Morphology Not Reportable 09/19/20 05:13 Dimorphic RBCs Not Reportable 09/19/20 05:13 Polychromasia Not Reportable 09/19/20 05:13 Hypochromasia Not Reportable 09/19/20 05:13 Poikilocytosis Not Reportable 09/19/20 05:13 Anisocytosis 1+ 09/19/20 05:13 Microcytosis Not Reportable 09/19/20 05:13 Macrocytosis Not Reportable 09/19/20 05:13 Spherocytes Not Reportable 09/19/20 05:13 Pappenheimer Bodies Not Reportable 09/19/20 05:13 Sickle Cells Not Reportable 09/19/20 05:13 Target Cells Not Reportable 09/19/20 05:13 Tear Drop Cells Not Reportable 09/19/20 05:13 Ovalocytes Not Reportable 09/19/20 05:13 Helmet Cells Not Reportable 09/19/20 05:13 [place] Bodies Not Reportable 09/19/20 05:13 [place] Rings Not Reportable 09/19/20 05:13 [place] Cells Not Reportable 09/19/20 05:13 Bite Cells Not Reportable 09/19/20 05:13 Crenated Cell Not Reportable 09/19/20 05:13 Elliptocytes Not Reportable 09/19/20 05:13 Acanthocytes (Spur) Not Reportable 09/19/20 05:13 Rouleaux Not Reportable 09/19/20 05:13 Hemoglobin C Crystals Not Reportable 09/19/20 05:13 Schistocytes Not Reportable 09/19/20 05:13 Malaria parasites Not Reportable 09/19/20 05:13 [place] Bodies Not Reportable 09/19/20 05:13 Hem Pathologist Commnt No 09/19/20 05:13 PT 16.1 Sec. (12.2-14.9) H 09/12/20 04:00 INR 1.31 (0.87-1.13) H 09/12/20 04:00 APTT 32.4 Sec. (24.2-36.6) 09/09/20 10:00 D-Dimer 8315.85 ng/mlDDU (0-234) H 09/07/20 14:00 ABG pH 7.442 (7.320-7.450) 09/14/20 03:54 POC ABG pCO2 42.3 mmHg (32.0-48.0) 09/14/20 03:54 ABG pCO2 33.4 mm Hg 09/11/20 05:40 POC ABG pO2 71.1 mmHg (83-108) L 09/14/20 03:54 ABG pO2 112.1 mm Hg (80.0-90.0) H 09/11/20 05:40 POC ABG HCO3 28.2 09/14/20 03:54 ABG HCO3 28.1 mmol/L (20.0-26.0) H 09/11/20 05:40 ABG O2 Saturation 98.4 % (95.0-99.0) 09/11/20 05:40 ABG O2 Content 11.6 (0.0-44) 09/11/20 05:40 POC ABG Base Excess 3.7 09/14/20 03:54 ABG Base Excess 5.4 mmol/L (-2.0-3.0) H 09/11/20 05:40 ABG Hemoglobin 10.3 (12.0-17.5) L 09/14/20 03:54 ABG Oxyhemoglobin 93.2 (94-98) L 09/13/20 04:47 ABG Carboxyhemoglobin 1.2 % (0.0-5.0) 09/11/20 05:40 ABG Methemoglobin 0.3 (0.0-1.5) 09/13/20 04:47 ABG Sodium 135.2 mmol/L (136.0-145.0) L 09/14/20 03:54 ABG Potassium 3.8 mmol/L (3.40-4.50) 09/14/20 03:54 ABG Chloride 98.0 mmol/L (98-107) 09/14/20 03:54 ABG Glucose 281 mg/dL (65-95) H 09/14/20 03:54 Oxyhemoglobin 96.8 % (95.0-99.0) 09/11/20 05:40 Carboxyhemoglobin 0.4 (0.5-1.5) L 09/13/20 04:47 FiO2 30 09/14/20 03:54 Sodium 148 mmol/L (137-145) H 09/24/20 05:44 Potassium 3.8 mmol/L (3.6-5.0) 09/24/20 05:44 Chloride 109.2 mmol/L (98-107) H 09/24/20 05:44 Carbon Dioxide 22 mmol/L (22-30) 09/24/20 05:44 Anion Gap 21 mmol/L 09/24/20 05:44 BUN 61 mg/dL (9-20) H 09/24/20 05:44 Creatinine 4.9 mg/dL (0.8-1.3) H 09/24/20 05:44 Estimated GFR 15 ml/min 09/24/20 05:44 BUN/Creatinine Ratio 12 % 09/24/20 05:44 Glucose 176 mg/dL (75-100) H 09/24/20 05:44 POC Glucose 150 mg/dL (70-105) H 09/24/20 05:22 Lactic Acid 2.90 mmol/L (0.7-2.0) H* 09/17/20 13:52 Calcium 9.4 mg/dL (8.4-10.2) 09/24/20 05:44 Phosphorus 8.00 mg/dL (2.5-4.5) H 09/08/20 12:02 Magnesium 1.80 mg/dL (1.7-2.3) 09/08/20 12:02 Ferritin > 2000.0 ng/mL (30.0-300.0) H 09/07/20 14:00 Total Bilirubin 0.90 mg/dL (0.1-1.2) 09/17/20 04:00 Direct Bilirubin 0.5 mg/dL (0-0.2) H 09/08/20 05:00 Indirect Bilirubin 0.5 mg/dL 09/08/20 05:00 AST 64 units/L (5-40) H 09/17/20 04:00 ALT 516 units/L (7-56) H 09/17/20 04:00 Alkaline Phosphatase 87 units/L (35-129) 09/17/20 04:00 Ammonia 50.0 umol/L (25-60) 09/07/20 14:00 Lactate Dehydrogenase 882 units/L (91-180) H 09/07/20 14:00 Total Creatine Kinase 477 units/L (55-170) H 09/07/20 14:00 Troponin T 0.076 ng/mL (0.00-0.029) H 09/07/20 14:00 C-Reactive Protein 1.10 mg/dL (0.00-1.30) 09/07/20 14:00 Total Protein 5.7 g/dL (6.3-8.2) L 09/17/20 04:00 Albumin 2.8 g/dL (3.9-5) L 09/17/20 04:00 Albumin/Globulin Ratio 1.0 % 09/17/20 04:00 Triglycerides 220 mg/dL (2-149) H 09/12/20 Unknown Procalcitonin 1.52 ng/mL (<0.15) 09/17/20 13:02 TSH 2.290 mlU/mL (0.270-4.200) 09/07/20 14:00 Arterial Blood Glucose 281 mg/dL (65-95) H 09/14/20 03:54 Arterial Blood Ionized Calcium 4.6 mg/dL (4.6-5.3) 09/14/20 03:54 Urine Color Straw (Yellow) 09/07/20 13:08 Urine Turbidity Slightly-cloudy (Clear) 09/07/20 13:08 Urine pH 8.0 (5.0-7.0) H 09/07/20 13:08 Ur Specific [place] 1.006 (1.003-1.030) 09/07/20 13:08 Urine Protein 100 mg/dl mg/dL (Negative) 09/07/20 13:08 Urine Glucose (UA) Neg mg/dL (Negative) 09/07/20 13:08 Urine Ketones Neg mg/dL (Negative) 09/07/20 13:08 Urine Blood Neg (Negative) 09/07/20 13:08 Urine Nitrite Neg (Negative) 09/07/20 13:08 Urine Bilirubin Neg (Negative) 09/07/20 13:08 Urine Urobilinogen < 2.0 mg/dL (<2.0) 09/07/20 13:08 Ur Leukocyte Esterase Neg (Negative) 09/07/20 13:08 Urine WBC (Auto) 4.0 /HPF (0.0-6.0) 09/07/20 13:08 Urine RBC (Auto) 18.0 /HPF (0.0-6.0) 09/07/20 13:08 U Epithel Cells (Auto) 1.0 /HPF (0-13.0) 09/07/20 13:08 Urine Mucus Few /HPF 09/07/20 13:08 Urine Sperm 3+ /HPF (PHARMACOMETRICIAN) 09/07/20 13:08 Urine Creatinine 182.4 mg/dL (0.1-20.0) H 09/08/20 Unknown Urine Sodium 40 mmol/L 09/08/20 Unknown Salicylates < 0.3 mg/dL (2.8-20.0) L 09/07/20 14:00 Acetaminophen 5.0 ug/mL (10.0-30.0) L 09/07/20 14:00 Plasma/Serum Alcohol < 0.01 % (0-0.07) 09/07/20 14:00 Coronavirus (PCR) Negative (Negative) 09/19/20 Unknown Hepatitis A IgM Ab Non-reactive (NonReactive) 09/07/20 14:00 Hep Bs Antigen Non-reactive (Negative) 09/07/20 14:00 Hep B Core IgM Ab Non-reactive (NonReactive) 09/07/20 14:00 Hepatitis C Antibody Non-reactive (NonReactive) 09/07/20 14:00 HIV 1&2 Antibody Rapid Non react (Non React) 09/07/20 14:34 HIV P24 Antigen Non react (Non React) 09/07/20 14:34 Blood Type O POSITIVE 09/09/20 10:00 Antibody Screen Negative 09/07/20 14:00 Mae/IV: Voiding Method Indwelling Catheter IV Catheter Type [Right Triple Lumen Cath Femoral] IV Catheter Type [Left Peripheral IV Antecubital] IV Catheter Type [Left Hand] Peripheral IV IV Catheter Type [Right Peripheral IV Antecubital] Active Medications - Current Medications Current Medications: Generic Name Dose Route Start Last Admin Trade Name Freq PRN Reason Stop Dose Admin Acetaminophen 400 mg 09/10/20 20:50 09/14/20 23:38 Acetaminophen 325 Mg/10.15 Ml Oral Liqd Unit Dose PO 400 mg Q4HR PRN Administration Non Cardiac Pain or Temp>100.5 Lipase/Protease/Amylase 1 each 09/09/20 09:40 Lipase 10,500/Protease 25,000/Amylase 43,750 (Units) Dr Armenta FEEDTUBE PRN PRN For Clogged Feeding Tube Famotidine 20 mg 09/20/20 11:00 09/24/20 09:04 Famotidine 20 Mg/2 Ml Inj IV 20 mg DAILY TAYLOR Administration Hydralazine HCl 50 mg 09/23/20 14:00 09/24/20 05:43 Hydralazine 25 Mg Tab PO 50 mg Q8HR TAYLOR Administration Hydrophilic Ointment 1 applic 09/07/20 13:08 Lip Therapy Vaseline TP Q2HR PRN Dry Lips Sodium Chloride 100 mls @ 999 mls/hr 09/09/20 13:36 Nacl 0.9% IV JAYJAY PRN Hypotension Levetiracetam 1,500 mg/ 115 mls @ 400 mls/hr 09/11/20 10:00 09/24/20 09:05 Dextrose IV 400 mls/hr BID TAYLOR Administration Valproate Sodium 1,000 mg/ 110 mls @ 100 mls/hr 09/14/20 22:00 09/24/20 09:05 Sodium Chloride IV 100 mls/hr Q12HR TAYLOR Administration Insulin Human Lispro 0 unit 09/12/20 12:00 09/24/20 05:44 Insulin Lispro 100 Unit/Ml SUB-Q 3 unit Q6HR TAYLOR Administration Protocol Lansoprazole 30 mg 09/11/20 11:00 09/19/20 22:04 Lansoprazole 30 Mg Solutab FEEDTUBE 30 mg BID TAYLOR Administration Lorazepam 2 mg 09/08/20 00:14 09/14/20 13:36 Lorazepam 2 Mg/Ml Vial IV 2 mg Q4H PRN Administration Seizures Metoclopramide HCl 5 mg 09/22/20 12:00 09/24/20 05:43 Metoclopramide 10 Mg/2 Ml Inj IV 5 mg Q6HR TAYLOR Administration Multi-Ingred Cream/Lotion/Oil/Oint 1 applic 09/07/20 13:08 09/20/20 10:50 Mineral Oil/Petrolatum, White Ophth Oint 3.5 Gm OU 1 applic Q4HR PRN Administration Dry Eye(s) Multivitamins 5 ml 09/09/20 12:00 09/24/20 09:04 Multivitamins 5 Ml Oral Liquid PO 5 ml QDAY TAYLOR Administration Ondansetron HCl 4 mg 09/07/20 17:55 09/19/20 04:00 Ondansetron 4 Mg/2 Ml Inj IV 4 mg Q8H PRN Administration Nausea And Vomiting Senna/Docusate Sodium 2 tab 09/20/20 11:00 Sennosides/Docusate Sodium 8.6/50 Mg Tab PO BID PRN Laxative Effect Simple Syrup 15 ml 09/09/20 09:40 09/17/20 17:43 Simple Syrup 15 Ml FEEDTUBE 15 ml PRN PRN Administration Hypoglycemia Simple Syrup 30 ml 09/09/20 09:40 Simple Syrup 15 Ml FEEDTUBE PRN PRN Hypoglycemia Sodium Bicarbonate 325 mg 09/09/20 09:40 Sodium Bicarbonate 325 Mg Tab FEEDTUBE PRN PRN For Clogged Feeding Tube Sodium Chloride 10 ml 09/07/20 22:00 09/24/20 09:06 Sodium Chloride 0.9% 10 Ml Flush Syringe IV 10 ml BID TAYLOR Administration Sodium Chloride 10 ml 09/07/20 17:55 Sodium Chloride 0.9% 10 Ml Flush Syringe IV PRN PRN LINE FLUSH Nutrition/Malnutrition Assess - Dietary Evaluation Nutrition/Malnutrition Findings: Nutrition Notes Start: 09/08/20 12: 01 Freq: Status: Active Protocol: Document 09/22/20 10:47 AT (Rec: 09/22/20 11:09 AT [email or web address]) Co-Sign 09/22/20 10:47 MK Nutrition Notes Initial or Follow up Reassessment Current Diagnosis Acute Kidney Injury, Respiratory Failure Other Pertinent Diagnosis on HD, cardiac arrest, COVID ( +), metabolic encephalopathy, pneu Current Diet Nepro 1.8 at 45 mL/hr (goal rate) Labs/Tests Reviewed Pertinent Medications MVI Humalog Height 6 ft Weight 166.5 kg [place] Body Weight (kg) 80.90 BMI 49.8 Weight Status Morbidly Obese Subjective/Other Information Follow up for PEG placement and TF restart. Pt is s/p PEG placement. Pt remains on vent. Per chart, pt had residuals of 75mL when TF was restarted at 20 mL/hr. Per MD, pt will start bowel regimen and hold feedings for 24 hr. Per MD, pt 's reports NKFA. Awaiting updated weight. Percent of energy/protein needs met: 43%/26% Burn Absent Trauma Absent GI Symptoms Vomiting Current % PO Negligible Minimum of two criteria No physical signs of malnutrition #1 Nutrition Diagnosis Inadequate oral intake Diagnosis Progress(for reassessment Continues documentation) Is patient on ventilator? Yes Is Patient Ambulatory and/or Out of Bed No REE-([facility]-confined to bed) 2995.752 Kcal/Kg value to use for calculation 12 Approximate Energy Requirements Using 1998 kcal/Kg Calculation Used for Recommendations Kcal/kg Additional Notes PRO needs: >149g (>1.2g/kg AdBW 124kg) Fluid needs: 6700-8018 mL or per MD Nutrition Intervention Change Diet Order: Continue TF Nutrition Support: Nepro 1.8 at 45 mL/hr Flush 200 mL q4h Kcal 1,944 Protein (gm) 87 Fluid (mL) 785 Goal #1 Meet nutrient needs as best as possible with TF Anticipated Discharge Needs: TF Follow-Up By: 09/25/20 Additional Comments F/U for TF restart and weight
--- NOTE | 2020-09-24 09:57 | Progress Note ---
Assessment and Plan Impression: * Nonoliguric RYAN secondary to ATN * Severe hyperkalemia - resolved * COVID 19 PNA * s/p OOH cardiac arrest * Acute hypoxic respiratory failure * Seizure activity * Anemia Plan: * Patient is s/p emergent HD - 09/08 * Continue MWF * Check labs daily * Strict I/O * Monitor for renal recovery * Keep MAP > 65 * Vent management per CCM * Steroids per primary team/ID * Dose medications for renal function * Avoid potential nephrotoxins * Prognosis is guarded Subjective Date of service: 09/24/20 Principal diagnosis: Abnormal LFTs, s/p cardiac arrest, acute kidney injury with ATN Interval history: resting in bed today Objective - Exam Narrative Exam: Deferred for PPE conservation and to prevent spread of infection - Vital Signs Vital signs: Vital Signs - 12hr 09/23/20 09/23/20 09/23/20 22:00 22:15 22:30 Temperature Pulse Rate 54 L 54 L 54 L Respiratory 30 H 30 H 30 H Rate Blood Pressure 158/67 161/69 146/68 O2 Sat by Pulse 100 100 100 Oximetry O2 Sat by Pulse 98 Oximetry [ Assessment] 09/23/20 09/23/20 09/23/20 22:45 23:00 23:15 Temperature Pulse Rate 55 L 54 L 54 L Respiratory 30 H 30 H 30 H Rate Blood Pressure 171/67 154/63 163/66 O2 Sat by Pulse 100 100 100 Oximetry O2 Sat by Pulse Oximetry [ Assessment] 09/23/20 09/23/20 09/23/20 23:30 23:34 23:45 Temperature 98.2 F Pulse Rate 54 L 54 L Respiratory 30 H 30 H Rate Blood Pressure 144/61 146/67 O2 Sat by Pulse 100 100 Oximetry O2 Sat by Pulse Oximetry [ Assessment] 09/24/20 09/24/20 09/24/20 00:00 00:02 00:15 Temperature Pulse Rate 55 L 55 L 54 L Respiratory 30 H 30 H 30 H Rate Blood Pressure 148/73 148/73 148/65 O2 Sat by Pulse 100 100 100 Oximetry O2 Sat by Pulse Oximetry [ Assessment] 09/24/20 09/24/20 09/24/20 00:30 00:45 01:00 Temperature Pulse Rate 55 L 55 L 60 Respiratory 30 H 30 H 30 H Rate Blood Pressure 149/61 147/67 166/68 O2 Sat by Pulse 100 100 100 Oximetry O2 Sat by Pulse Oximetry [ Assessment] 09/24/20 09/24/20 09/24/20 01:15 01:30 01:45 Temperature Pulse Rate 58 L 57 L 56 L Respiratory 30 H 30 H 30 H Rate Blood Pressure 155/74 150/65 165/69 O2 Sat by Pulse 100 100 100 Oximetry O2 Sat by Pulse Oximetry [ Assessment] 09/24/20 09/24/20 09/24/20 02:00 02:15 02:30 Temperature Pulse Rate 58 L 55 L 73 Respiratory 30 H 30 H 20 Rate Blood Pressure 146/69 147/66 147/66 O2 Sat by Pulse 100 100 100 Oximetry O2 Sat by Pulse Oximetry [ Assessment] 09/24/20 09/24/20 09/24/20 02:45 03:00 03:15 Temperature 97.8 F Pulse Rate 55 L 55 L 54 L Respiratory 30 H 30 H 30 H Rate Blood Pressure 153/65 151/69 164/74 O2 Sat by Pulse 100 100 100 Oximetry O2 Sat by Pulse Oximetry [ Assessment] 09/24/20 09/24/20 09/24/20 03:30 03:45 04:00 Temperature Pulse Rate 53 L 54 L 53 L Respiratory 30 H 30 H 30 H Rate Blood Pressure 145/71 163/74 145/70 O2 Sat by Pulse 100 100 100 Oximetry O2 Sat by Pulse Oximetry [ Assessment] 09/24/20 09/24/20 09/24/20 04:15 04:30 04:45 Temperature Pulse Rate 54 L 53 L 54 L Respiratory 30 H 30 H 30 H Rate Blood Pressure 154/70 160/70 137/68 O2 Sat by Pulse 100 100 100 Oximetry O2 Sat by Pulse Oximetry [ Assessment] 09/24/20 09/24/20 09/24/20 05:00 05:15 05:30 Temperature Pulse Rate 54 L 54 L 54 L Respiratory 30 H 30 H 30 H Rate Blood Pressure 137/68 157/73 151/69 O2 Sat by Pulse 100 100 100 Oximetry O2 Sat by Pulse Oximetry [ Assessment] 09/24/20 09/24/20 09/24/20 05:43 05:45 06:00 Temperature Pulse Rate 55 L 54 L 56 L Respiratory 30 H 30 H Rate Blood Pressure 151/69 152/75 156/72 O2 Sat by Pulse 100 100 Oximetry O2 Sat by Pulse Oximetry [ Assessment] 09/24/20 09/24/20 09/24/20 06:16 08:00 08:30 Temperature 97.9 F Pulse Rate 68 60 Respiratory 12 Rate Blood Pressure 169/70 129/66 O2 Sat by Pulse 100 100 Oximetry O2 Sat by Pulse 100 Oximetry [ Assessment] 09/24/20 09:10 Temperature Pulse Rate 64 Respiratory 21 Rate Blood Pressure 163/75 O2 Sat by Pulse 100 Oximetry O2 Sat by Pulse Oximetry [ Assessment] - Lab 09/21/20 05:00 09/24/20 05:44 Most recent lab results ABG pH 7.442 (7.320-7.450) 09/14/20 03:54 ABG pCO2 33.4 mm Hg 09/11/20 05:40 ABG pO2 112.1 mm Hg (80.0-90.0) H 09/11/20 05:40 ABG HCO3 28.1 mmol/L (20.0-26.0) H 09/11/20 05:40 ABG O2 Saturation 98.4 % (95.0-99.0) 09/11/20 05:40 Calcium 9.4 mg/dL (8.4-10.2) 09/24/20 05:44 Phosphorus 8.00 mg/dL (2.5-4.5) H 09/08/20 12:02 Magnesium 1.80 mg/dL (1.7-2.3) 09/08/20 12:02 Urine Creatinine 182.4 mg/dL (0.1-20.0) H 09/08/20 Unknown Urine Sodium 40 mmol/L 09/08/20 Unknown Medications & Allergies - Medications Allergies/Adverse Reactions: Allergies No Known Allergies Allergy (Verified 09/21/20 21:00) Verified with , no known drug allergies. Home Medications: Home Medications Medication Instructions Recorded Confirmed Last Taken Type Albuterol Sulfate 60 mcg IH PRN 09/11/20 09/11/20 Unknown History Cholecalciferol (Vitamin D3) 25 tab PO DAILY 09/11/20 09/11/20 Unknown History Cozaar 25 tab PO DAILY 09/11/20 09/11/20 Unknown History HumaLOG 14 unit SQ AC 09/11/20 09/11/20 Unknown History Hydralazine HCl 50 tab PO TID 09/11/20 09/11/20 Unknown History Isosorbide Dinitrate 30 mg PO DAILY 09/11/20 09/11/20 Unknown History Lantus VIAL 54 units SQ HS 09/11/20 09/11/20 Unknown History Lasix 20 tab PO DAILY 09/11/20 09/11/20 Unknown History Nifedipine 30 tab PO DAILY 09/11/20 09/11/20 Unknown History Active Medications: Generic Name Dose Route Start Last Admin Trade Name Freq PRN Reason Stop Dose Admin Acetaminophen 400 mg 09/10/20 20:50 09/14/20 23:38 Acetaminophen 325 Mg/10.15 Ml Oral Liqd Unit Dose PO 400 mg Q4HR PRN Administration Non Cardiac Pain or Temp>100.5 Lipase/Protease/Amylase 1 each 09/09/20 09:40 Lipase 10,500/Protease 25,000/Amylase 43,750 (Units) Dr Armenta FEEDTUBE PRN PRN For Clogged Feeding Tube Famotidine 20 mg 09/20/20 11:00 09/24/20 09:04 Famotidine 20 Mg/2 Ml Inj IV 20 mg DAILY TAYLOR Administration Hydralazine HCl 50 mg 09/23/20 14:00 09/24/20 05:43 Hydralazine 25 Mg Tab PO 50 mg Q8HR TAYLOR Administration Hydrophilic Ointment 1 applic 09/07/20 13:08 Lip Therapy Vaseline TP Q2HR PRN Dry Lips Sodium Chloride 100 mls @ 999 mls/hr 09/09/20 13:36 Nacl 0.9% IV JAYJAY PRN Hypotension Levetiracetam 1,500 mg/ 115 mls @ 400 mls/hr 09/11/20 10:00 09/24/20 09:05 Dextrose IV 400 mls/hr BID TAYLOR Administration Valproate Sodium 1,000 mg/ 110 mls @ 100 mls/hr 09/14/20 22:00 09/24/20 09:05 Sodium Chloride IV 100 mls/hr Q12HR TAYLOR Administration Insulin Human Lispro 0 unit 09/12/20 12:00 09/24/20 05:44 Insulin Lispro 100 Unit/Ml SUB-Q 3 unit Q6HR TAYLOR Administration Protocol Lansoprazole 30 mg 09/11/20 11:00 09/19/20 22:04 Lansoprazole 30 Mg Solutab FEEDTUBE 30 mg BID TAYLOR Administration Lorazepam 2 mg 09/08/20 00:14 09/14/20 13:36 Lorazepam 2 Mg/Ml Vial IV 2 mg Q4H PRN Administration Seizures Metoclopramide HCl 5 mg 09/22/20 12:00 09/24/20 05:43 Metoclopramide 10 Mg/2 Ml Inj IV 5 mg Q6HR TAYLOR Administration Multi-Ingred Cream/Lotion/Oil/Oint 1 applic 09/07/20 13:08 09/20/20 10:50 Mineral Oil/Petrolatum, White Ophth Oint 3.5 Gm OU 1 applic Q4HR PRN Administration Dry Eye(s) Multivitamins 5 ml 09/09/20 12:00 09/24/20 09:04 Multivitamins 5 Ml Oral Liquid PO 5 ml QDAY TAYLOR Administration Ondansetron HCl 4 mg 09/07/20 17:55 09/19/20 04:00 Ondansetron 4 Mg/2 Ml Inj IV 4 mg Q8H PRN Administration Nausea And Vomiting Senna/Docusate Sodium 2 tab 09/20/20 11:00 Sennosides/Docusate Sodium 8.6/50 Mg Tab PO BID PRN Laxative Effect Simple Syrup 15 ml 09/09/20 09:40 09/17/20 17:43 Simple Syrup 15 Ml FEEDTUBE 15 ml PRN PRN Administration Hypoglycemia Simple Syrup 30 ml 09/09/20 09:40 Simple Syrup 15 Ml FEEDTUBE PRN PRN Hypoglycemia Sodium Bicarbonate 325 mg 09/09/20 09:40 Sodium Bicarbonate 325 Mg Tab FEEDTUBE PRN PRN For Clogged Feeding Tube Sodium Chloride 10 ml 09/07/20 22:00 09/24/20 09:06 Sodium Chloride 0.9% 10 Ml Flush Syringe IV 10 ml BID TAYLOR Administration Sodium Chloride 10 ml 09/07/20 17:55 Sodium Chloride 0.9% 10 Ml Flush Syringe IV PRN PRN LINE FLUSH
--- NOTE | 2020-09-24 11:04 | Progress Note ---
Assessment and Plan 65 y/o male with out of hospital cardiac arrest now sedated on ativan for possible seizures. 09/24/20: Continue Daily PSV, maybe ready for 24 hour trial. Antiepleptic therapy. Hold feeds today, suggest GI consult. Will discuss with Dietary on round tomorrow. 09/23/20: Daily PSV trials multiple times a day if needed. Antiepileptic t herapy. Resume tube feeds today. 09/22/20: PSV trial today as tolerated and every day from this day forward. NO sedation. Continue antiepileptic therapy. HD per renal. Still having issues with feeds. Will contact to see if he has any food allergies. Prognosis still remains very poor. WIll start some promotility agents as well. 09/21/20: Trach and peg today. Continue with vent weaning. Hopeful we can wean him off the vent once trached. [facility] Prognosis remains very poor for recovery of functional state. 09/20/20: Placed consult to surgery now that COVID is negative. However, patient is morbidly obese and his surgery will likely be a complicated one especially with peg placement. Await surgery eval and recs. HD per renal. Continue daily PSV trials, mental status precludes extubation traditionally but maybe able to wean off vent with stable airway such as trach. [facility] has denied transfer and placement requests at this time based on CM notes. Prognosis is very poor, but after speaking with neurology and neurosurgery, patient wishes to continue aggressive measures. 09/19/20: Ordered repeat COVID as surgery will not do trach and peg until negative status. Continue supportive measures. Prognosis is very very poor but family wishes to proceed with intermediate designer care. 09/18/20: Unable to fit in MRI. Repeat CT showed improvement in edema but no clinical response is seen with this. Will continue Antiepileptic therapy. If wishes to proceed, will need trach and peg. Not sure if he would be candidate for PEG given his size but will ask surgery. Will need repeat COVID test prior to surgery. 09/15/20: Order MRI brain without contrast. Per surgery this will help to add more in regards to prognosis. Continue Valproic Acid and Keppra for seizure therapy. HD going now per renal. Overall prognosis remains guarded to poor. Please reach out to over the weekend to update her as I am not rounding this weekend, ,my partner will be covering. 2/4/21: Will load with valproic acid and then start to wean Diprovan. Spoke wi th today, very tearful on the phone. Explained to that Neurosurgery would come and gustabo walker but not a candidate for the other therapies she asked about since his edema is related to anoxic injury. Very very poor prognosis. 09/13/20: Per current neuro available, the neurologist from yesterday will call today. EEG is nonspecific but given CT of head findings consistent with a noxic encephalopathy, brain injury. As stated in neuro note, overall prognosis is very poor. Will continue to wean down diprovan to see if patient's seizures have been controlled with current Keppra dosing. Will call once she has spoken to neuro to get her thoughts on the next steps. (trach and peg, vs hospice as well as code status). Very very poor prognosis. 09/12/20: Long discussion with this am. Given recent head CT results, prognosis for full functional recovery is very POOR and neurology agrees. They will see in consult today. I have spoken to about AND and she is going to discuss with the family. The neurologist has stated they will reach out to the today. I am going to attempt to wean the ativan off and then start to wean the diprovan as long as no seizure activity is seen. Patient is now bradycardic, likely secondary to neuro state. I hope that he is not about to herniate. Patient is also like in Neurogenic DI given large urine out put volume. Very very poor prognosis. Continue supportive measures. 09/11/20: Will increase Keppra to 1500 BID given patient size. Continue Diprovan drip. Getting EEG today. HD per renal. Needs neurology consult however if patient is in status, needs to be transferred to an institution that can provide continuous EEG monitoring. Overll prognosis is very guarded to poor. Have not spoken to yet today. 09/10/20: Loaded with keppra and will start on Keppra BID. Needs EEG on therapy as well as OFF. If patient is in status, needs transfer to a location with continuous EEG capabilities. FiO2 has been weaned back down and is now at 60%, sats in the high 90's. HD per renal. Coags improving. Overall prognosis is guarded to poor. Spoke with on phone yesterday. Consult neurology ancelmo andi as not available on the weekend. Suggest checking for antibodies as he may be a candidate for convalsescent plasma. Per the , he was diagnosed with COVID on and spent 6 days inpatient at the [facility]. Remains positive now with multisystem organ failure. Explained to that outcome may not be good but need more time to assess. 09/09/20: EEG ordered on yesterday but not done. If done not read. Continue diprovan for now until EEG can be done or interpreted. State Coags but given his oozing from his vascath, will give Vitamin K and FFP. Patient is covid positive so agree with steroids. Not a candidate for remdesivir. Need to check for antibodies, may be a candidate for convalescent plasma. HD per renal. Given improvement in pH will stop bicarb drip. Feed patient. 1. Stop sedation 2. EEG 3. Needs neuro consult. 4. Art line placement 5. Stat repeat of labs, if renal function is truly that bad, will need renal consult. 6. Follow up COVID testing 7. Likely needs echo 8. Will place on bicarb drip. CCT 31 minutes. Subjective Date of service: 09/24/20 Principal diagnosis: Abnormal LFTs, s/p cardiac arrest, acute kidney injury with ATN Interval history: Tolerated PSV all day yesterday. Back on 07/16 now. No issues. No seizures. Did not tolerated tube feeds. Even with reglan. Objective Vital Signs - 12hr 09/23/20 09/23/20 09/23/20 23:00 23:15 23:30 Temperature Pulse Rate 54 L 54 L 54 L Pulse Rate [ From Monitor] Respiratory 30 H 30 H 30 H Rate Blood Pressure 154/63 163/66 144/61 O2 Sat by Pulse 100 100 100 Oximetry O2 Sat by Pulse Oximetry [ Assessment] 09/23/20 09/23/20 09/24/20 23:34 23:45 00:00 Temperature 98.2 F Pulse Rate 54 L 55 L Pulse Rate [ From Monitor] Respiratory 30 H 30 H Rate Blood Pressure 146/67 148/73 O2 Sat by Pulse 100 100 Oximetry O2 Sat by Pulse Oximetry [ Assessment] 09/24/20 09/24/20 09/24/20 00:02 00:15 00:30 Temperature Pulse Rate 55 L 54 L 55 L Pulse Rate [ From Monitor] Respiratory 30 H 30 H 30 H Rate Blood Pressure 148/73 148/65 149/61 O2 Sat by Pulse 100 100 100 Oximetry O2 Sat by Pulse Oximetry [ Assessment] 09/24/20 09/24/20 09/24/20 00:45 01:00 01:15 Temperature Pulse Rate 55 L 60 58 L Pulse Rate [ From Monitor] Respiratory 30 H 30 H 30 H Rate Blood Pressure 147/67 166/68 155/74 O2 Sat by Pulse 100 100 100 Oximetry O2 Sat by Pulse Oximetry [ Assessment] 09/24/20 09/24/20 09/24/20 01:30 01:45 02:00 Temperature Pulse Rate 57 L 56 L 58 L Pulse Rate [ From Monitor] Respiratory 30 H 30 H 30 H Rate Blood Pressure 150/65 165/69 146/69 O2 Sat by Pulse 100 100 100 Oximetry O2 Sat by Pulse Oximetry [ Assessment] 09/24/20 09/24/20 09/24/20 02:15 02:30 02:45 Temperature Pulse Rate 55 L 73 55 L Pulse Rate [ From Monitor] Respiratory 30 H 20 30 H Rate Blood Pressure 147/66 147/66 153/65 O2 Sat by Pulse 100 100 100 Oximetry O2 Sat by Pulse Oximetry [ Assessment] 09/24/20 09/24/20 09/24/20 03:00 03:15 03:30 Temperature 97.8 F Pulse Rate 55 L 54 L 53 L Pulse Rate [ From Monitor] Respiratory 30 H 30 H 30 H Rate Blood Pressure 151/69 164/74 145/71 O2 Sat by Pulse 100 100 100 Oximetry O2 Sat by Pulse Oximetry [ Assessment] 09/24/20 09/24/20 09/24/20 03:45 04:00 04:15 Temperature Pulse Rate 54 L 53 L 54 L Pulse Rate [ From Monitor] Respiratory 30 H 30 H 30 H Rate Blood Pressure 163/74 145/70 154/70 O2 Sat by Pulse 100 100 100 Oximetry O2 Sat by Pulse Oximetry [ Assessment] 09/24/20 09/24/20 09/24/20 04:30 04:45 05:00 Temperature Pulse Rate 53 L 54 L 54 L Pulse Rate [ From Monitor] Respiratory 30 H 30 H 30 H Rate Blood Pressure 160/70 137/68 137/68 O2 Sat by Pulse 100 100 100 Oximetry O2 Sat by Pulse Oximetry [ Assessment] 09/24/20 09/24/20 09/24/20 05:15 05:30 05:43 Temperature Pulse Rate 54 L 54 L 55 L Pulse Rate [ From Monitor] Respiratory 30 H 30 H Rate Blood Pressure 157/73 151/69 151/69 O2 Sat by Pulse 100 100 Oximetry O2 Sat by Pulse Oximetry [ Assessment] 09/24/20 09/24/20 09/24/20 05:45 06:00 06:16 Temperature Pulse Rate 54 L 56 L 68 Pulse Rate [ From Monitor] Respiratory 30 H 30 H 12 Rate Blood Pressure 152/75 156/72 169/70 O2 Sat by Pulse 100 100 100 Oximetry O2 Sat by Pulse Oximetry [ Assessment] 09/24/20 09/24/20 09/24/20 06:30 06:45 07:00 Temperature Pulse Rate 64 62 62 Pulse Rate [ From Monitor] Respiratory 30 H 30 H 30 H Rate Blood Pressure 123/62 144/71 133/68 O2 Sat by Pulse 100 100 Oximetry O2 Sat by Pulse Oximetry [ Assessment] 09/24/20 09/24/20 09/24/20 07:15 07:30 07:45 Temperature Pulse Rate 60 59 L 59 L Pulse Rate [ From Monitor] Respiratory 30 H 30 H 30 H Rate Blood Pressure 147/68 142/66 147/68 O2 Sat by Pulse 100 100 100 Oximetry O2 Sat by Pulse Oximetry [ Assessment] 09/24/20 09/24/20 09/24/20 08:00 08:15 08:30 Temperature 97.9 F Pulse Rate 59 L 69 59 L Pulse Rate [ 59 L From Monitor] Respiratory 30 H 29 H 22 Rate Blood Pressure 154/67 164/78 135/69 O2 Sat by Pulse 100 100 100 Oximetry O2 Sat by Pulse 100 Oximetry [ Assessment] 09/24/20 09/24/20 09/24/20 08:45 09:00 09:10 Temperature Pulse Rate 60 61 64 Pulse Rate [ From Monitor] Respiratory 29 H 13 21 Rate Blood Pressure 131/71 129/66 163/75 O2 Sat by Pulse 100 100 100 Oximetry O2 Sat by Pulse Oximetry [ Assessment] 09/24/20 09/24/20 09/24/20 09:16 09:30 09:45 Temperature Pulse Rate 61 63 64 Pulse Rate [ From Monitor] Respiratory 20 25 H 23 Rate Blood Pressure 162/67 163/75 165/71 O2 Sat by Pulse 99 100 100 Oximetry O2 Sat by Pulse Oximetry [ Assessment] Constitutional: comatose, other (morbidly obese) Eyes: non-icteric ENT: other (orally intubated and sedated) Neck: supple Effort: normal Ascultation: Bilateral: diminished breath sounds Percussion: Bilateral: not dull Cardiovascular: other (bradycardic) Gastrointestinal: soft CBC and BMP: 09/21/20 05:00 09/24/20 05:44 ABG, PT/INR, D-dimer: ABG ABG pH 7.442 (7.320-7.450) 09/14/20 03:54 POC ABG pCO2 42.3 mmHg (32.0-48.0) 09/14/20 03:54 ABG pCO2 33.4 mm Hg 09/11/20 05:40 POC ABG pO2 71.1 mmHg (83-108) L 09/14/20 03:54 ABG pO2 112.1 mm Hg (80.0-90.0) H 09/11/20 05:40 POC ABG HCO3 28.2 09/14/20 03:54 ABG O2 Saturation 98.4 % (95.0-99.0) 09/11/20 05:40 PT/INR, D-dimer PT 16.1 Sec. (12.2-14.9) H 09/12/20 04:00 INR 1.31 (0.87-1.13) H 09/12/20 04:00 D-Dimer 8315.85 ng/mlDDU (0-234) H 09/07/20 14:00 Abnormal lab findings: Abnormal Labs 09/07/20 09/07/20 09/07/20 13:08 14:00 14:00 WBC 15.7 H RBC Hgb 10.2 L Hct 32.5 L MCHC 31 L RDW 17.5 H Lymph % (Auto) [place] % (Auto) Lymph # (Auto) [place] # (Auto) Seg Neutrophils % Seg Neuts % (Manual) 72.0 H Lymphocytes % (Manual) Monocytes % (Manual) 8.0 H Nucleated RBC % Seg Neutrophils # Seg Neutrophils # Man 11.3 H Lymphocytes # (Manual) Monocytes # (Manual) 1.3 H PT INR D-Dimer 8315.85 H ABG pH POC ABG pCO2 POC ABG pO2 ABG pO2 ABG HCO3 ABG Base Excess ABG Hemoglobin ABG Oxyhemoglobin ABG Sodium ABG Potassium ABG Chloride ABG Glucose Carboxyhemoglobin Sodium Potassium Chloride Carbon Dioxide BUN Creatinine Glucose POC Glucose Lactic Acid Calcium Phosphorus Ferritin Total Bilirubin Direct Bilirubin AST ALT Lactate Dehydrogenase Total Creatine Kinase Troponin T Total Protein Albumin Triglycerides Arterial Blood Glucose Arterial Blood Ionized Calcium Urine pH 8.0 H Urine Creatinine Salicylates Acetaminophen Coronavirus (PCR) 09/07/20 09/07/20 09/07/20 14:00 14:00 14:00 WBC RBC Hgb Hct MCHC RDW Lymph % (Auto) [place] % (Auto) Lymph # (Auto) [place] # (Auto) Seg Neutrophils % Seg Neuts % (Manual) Lymphocytes % (Manual) Monocytes % (Manual) Nucleated RBC % Seg Neutrophils # Seg Neutrophils # Man Lymphocytes # (Manual) Monocytes # (Manual) PT INR D-Dimer ABG pH POC ABG pCO2 POC ABG pO2 ABG pO2 ABG HCO3 ABG Base Excess ABG Hemoglobin ABG Oxyhemoglobin ABG Sodium ABG Potassium ABG Chloride ABG Glucose Carboxyhemoglobin Sodium Potassium Chloride Carbon Dioxide BUN Creatinine Glucose POC Glucose Lactic Acid 4.30 H* Calcium Phosphorus Ferritin > 2000.0 H Total Bilirubin Direct Bilirubin AST ALT Lactate Dehydrogenase 882 H Total Creatine Kinase 477 H Troponin T 0.076 H Total Protein Albumin Triglycerides Arterial Blood Glucose Arterial Blood Ionized Calcium Urine pH Urine Creatinine Salicylates Acetaminophen Coronavirus (PCR) 09/07/20 09/07/20 09/07/20 14:00 14:00 14:00 WBC RBC Hgb Hct MCHC RDW Lymph % (Auto) [place] % (Auto) Lymph # (Auto) [place] # (Auto) Seg Neutrophils % Seg Neuts % (Manual) Lymphocytes % (Manual) Monocytes % (Manual) Nucleated RBC % Seg Neutrophils # Seg Neutrophils # Man Lymphocytes # (Manual) Monocytes # (Manual) PT INR D-Dimer ABG pH POC ABG pCO2 POC ABG pO2 ABG pO2 ABG HCO3 ABG Base Excess ABG Hemoglobin ABG Oxyhemoglobin ABG Sodium ABG Potassium ABG Chloride ABG Glucose Carboxyhemoglobin Sodium Potassium Chloride Carbon Dioxide BUN Creatinine 1.8 H Glucose POC Glucose Lactic Acid Calcium Phosphorus Ferritin Total Bilirubin Direct Bilirubin AST 310 H ALT 339 H Lactate Dehydrogenase Total Creatine Kinase Troponin T Total Protein Albumin 3.6 L Triglycerides Arterial Blood Glucose Arterial Blood Ionized Calcium Urine pH Urine Creatinine Salicylates < 0.3 L Acetaminophen 5.0 L Coronavirus (PCR) 09/07/20 09/08/20 09/08/20 14:26 04:00 04:17 WBC RBC Hgb Hct MCHC RDW Lymph % (Auto) [place] % (Auto) Lymph # (Auto) [place] # (Auto) Seg Neutrophils % Seg Neuts % (Manual) Lymphocytes % (Manual) Monocytes % (Manual) Nucleated RBC % Seg Neutrophils # Seg Neutrophils # Man Lymphocytes # (Manual) Monocytes # (Manual) PT INR D-Dimer ABG pH 7.037 L 7.095 L POC ABG pCO2 92.4 H 68.0 H POC ABG pO2 130.8 H 43.5 L ABG pO2 ABG HCO3 ABG Base Excess ABG Hemoglobin 11.3 L 10.6 L ABG Oxyhemoglobin 70.8 L ABG Sodium ABG Potassium 7.0 H ABG Chloride 108.0 H ABG Glucose Carboxyhemoglobin 0.3 L Sodium Potassium 8.4 H* D Chloride Carbon Dioxide 17 L D BUN 38 H Creatinine 3.9 H D Glucose POC Glucose Lactic Acid Calcium 7.7 L D Phosphorus Ferritin Total Bilirubin Direct Bilirubin AST ALT Lactate Dehydrogenase Total Creatine Kinase Troponin T Total Protein Albumin Triglycerides Arterial Blood Glucose Arterial Blood Ionized Calcium 4.5 L Urine pH Urine Creatinine Salicylates Acetaminophen Coronavirus (PCR) 09/08/20 09/08/20 09/08/20 05:00 05:25 12:02 WBC RBC Hgb Hct MCHC RDW Lymph % (Auto) [place] % (Auto) Lymph # (Auto) [place] # (Auto) Seg Neutrophils % Seg Neuts % (Manual) Lymphocytes % (Manual) Monocytes % (Manual) Nucleated RBC % Seg Neutrophils # Seg Neutrophils # Man Lymphocytes # (Manual) Monocytes # (Manual) PT INR D-Dimer ABG pH 7.088 L POC ABG pCO2 69.1 H POC ABG pO2 35.2 L ABG pO2 ABG HCO3 ABG Base Excess ABG Hemoglobin 10.9 L ABG Oxyhemoglobin 57.1 L ABG Sodium ABG Potassium 7.0 H ABG Chloride 108.0 H ABG Glucose Carboxyhemoglobin 0.4 L Sodium Potassium 8.1 H* Chloride Carbon Dioxide 17 L BUN 38 H Creatinine 3.7 H Glucose POC Glucose Lactic Acid Calcium 8.0 L Phosphorus 8.00 H Ferritin Total Bilirubin Direct Bilirubin 0.5 H AST 3696 H ALT 3331 H Lactate Dehydrogenase Total Creatine Kinase Troponin T Total Protein Albumin 3.5 L Triglycerides Arterial Blood Glucose Arterial Blood Ionized Calcium 4.4 L Urine pH Urine Creatinine Salicylates Acetaminophen Coronavirus (PCR) 09/08/20 09/08/20 09/08/20 16:31 22:36 Unknown WBC RBC Hgb Hct MCHC RDW Lymph % (Auto) [place] % (Auto) Lymph # (Auto) [place] # (Auto) Seg Neutrophils % Seg Neuts % (Manual) Lymphocytes % (Manual) Monocytes % (Manual) Nucleated RBC % Seg Neutrophils # Seg Neutrophils # Man Lymphocytes # (Manual) Monocytes # (Manual) PT INR D-Dimer ABG pH POC ABG pCO2 POC ABG pO2 ABG pO2 ABG HCO3 ABG Base Excess ABG Hemoglobin ABG Oxyhemoglobin ABG Sodium ABG Potassium ABG Chloride ABG Glucose Carboxyhemoglobin Sodium Potassium 5.3 H D Chloride Carbon Dioxide BUN Creatinine Glucose POC Glucose 158 H Lactic Acid Calcium Phosphorus Ferritin Total Bilirubin Direct Bilirubin AST ALT Lactate Dehydrogenase Total Creatine Kinase Troponin T Total Protein Albumin Triglycerides Arterial Blood Glucose Arterial Blood Ionized Calcium Urine pH Urine Creatinine Salicylates Acetaminophen Coronavirus (PCR) Positive A 09/08/20 09/08/20 09/08/20 Unknown Unknown Unknown WBC 18.4 H RBC Hgb 10.1 L Hct 32.0 L MCHC RDW 18.2 H Lymph % (Auto) [place] % (Auto) Lymph # (Auto) [place] # (Auto) Seg Neutrophils % Seg Neuts % (Manual) 81.0 H Lymphocytes % (Manual) 2.0 L Monocytes % (Manual) Nucleated RBC % 1.0 H Seg Neutrophils # Seg Neutrophils # Man 14.9 H Lymphocytes # (Manual) 0.4 L Monocytes # (Manual) 1.1 H PT 21.2 H INR 1.83 H D-Dimer ABG pH POC ABG pCO2 POC ABG pO2 ABG pO2 ABG HCO3 ABG Base Excess ABG Hemoglobin ABG Oxyhemoglobin ABG Sodium ABG Potassium ABG Chloride ABG Glucose Carboxyhemoglobin Sodium Potassium Chloride Carbon Dioxide BUN Creatinine Glucose POC Glucose Lactic Acid Calcium Phosphorus Ferritin Total Bilirubin Direct Bilirubin AST ALT Lactate Dehydrogenase Total Creatine Kinase Troponin T Total Protein Albumin Triglycerides Arterial Blood Glucose Arterial Blood Ionized Calcium Urine pH Urine Creatinine 182.4 H Salicylates Acetaminophen Coronavirus (PCR) 09/09/20 09/09/20 09/09/20 03:14 04:20 04:20 WBC 16.3 H RBC 3.12 L Hgb 8.6 L Hct 26.8 L MCHC RDW 18.2 H Lymph % (Auto) 6.3 L [place] % (Auto) 8.8 H Lymph # (Auto) 1.0 L [place] # (Auto) 1.4 H Seg Neutrophils % 84.5 H Seg Neuts % (Manual) Lymphocytes % (Manual) Monocytes % (Manual) Nucleated RBC % Seg Neutrophils # 13.7 H Seg Neutrophils # Man Lymphocytes # (Manual) Monocytes # (Manual) PT INR D-Dimer ABG pH POC ABG pCO2 POC ABG pO2 148.5 H ABG pO2 ABG HCO3 ABG Base Excess ABG Hemoglobin 9.4 L ABG Oxyhemoglobin 98.8 H ABG Sodium 134.8 L ABG Potassium 5.0 H ABG Chloride ABG Glucose 222 H Carboxyhemoglobin 0.1 L Sodium Potassium 5.2 H Chloride Carbon Dioxide BUN 47 H Creatinine 4.3 H Glucose 211 H POC Glucose Lactic Acid Calcium 7.4 L Phosphorus Ferritin Total Bilirubin Direct [place] 87924 H ALT 6206 H Lactate Dehydrogenase Total Creatine Kinase Troponin T Total Protein 5.6 L Albumin 3.0 L Triglycerides Arterial Blood Glucose 222 H Arterial Blood Ionized Calcium 3.8 L Urine pH Urine Creatinine Salicylates Acetaminophen Coronavirus (PCR) 09/09/20 09/09/20 09/09/20 10:00 12:23 18:22 WBC RBC Hgb Hct MCHC RDW Lymph % (Auto) [place] % (Auto) Lymph # (Auto) [place] # (Auto) Seg Neutrophils % Seg Neuts % (Manual) Lymphocytes % (Manual) Monocytes % (Manual) Nucleated RBC % Seg Neutrophils # Seg Neutrophils # Man Lymphocytes # (Manual) Monocytes # (Manual) PT 21.7 H INR 1.90 H D-Dimer ABG pH POC ABG pCO2 POC ABG pO2 ABG pO2 ABG HCO3 ABG Base Excess ABG Hemoglobin ABG Oxyhemoglobin ABG Sodium ABG Potassium ABG Chloride ABG Glucose Carboxyhemoglobin Sodium Potassium Chloride Carbon Dioxide BUN Creatinine Glucose POC Glucose 216 H 211 H Lactic Acid Calcium Phosphorus Ferritin Total Bilirubin Direct Bilirubin AST ALT Lactate Dehydrogenase Total Creatine Kinase Troponin T Total Protein Albumin Triglycerides Arterial Blood Glucose Arterial Blood Ionized Calcium Urine pH Urine Creatinine Salicylates Acetaminophen Coronavirus (PCR) 09/10/20 09/10/20 09/10/20 04:00 04:05 04:05 WBC 15.0 H RBC 3.06 L Hgb 8.6 L Hct 25.8 L MCHC RDW 18.0 H Lymph % (Auto) [place] % (Auto) Lymph # (Auto) [place] # (Auto) Seg Neutrophils % Seg Neuts % (Manual) 86.0 H Lymphocytes % (Manual) 6.0 L Monocytes % (Manual) 8.0 H Nucleated RBC % Seg Neutrophils # Seg Neutrophils # Man 12.9 H Lymphocytes # (Manual) 0.9 L Monocytes # (Manual) 1.2 H PT 18.4 H INR 1.54 H D-Dimer ABG pH POC ABG pCO2 POC ABG pO2 ABG pO2 ABG HCO3 ABG Base Excess ABG Hemoglobin ABG Oxyhemoglobin ABG Sodium ABG Potassium ABG Chloride ABG Glucose Carboxyhemoglobin Sodium 134 L Potassium Chloride 93.7 L Carbon Dioxide BUN 46 H Creatinine 3.6 H Glucose 275 H POC Glucose Lactic Acid Calcium 7.7 L Phosphorus Ferritin Total Bilirubin 1.30 H Direct Bilirubin AST 5899 H ALT 6440 H Lactate Dehydrogenase Total Creatine Kinase Troponin T Total Protein 5.9 L Albumin 3.3 L Triglycerides Arterial Blood Glucose Arterial Blood Ionized Calcium Urine pH Urine Creatinine Salicylates Acetaminophen Coronavirus (PCR) 09/10/20 09/10/20 09/10/20 04:35 12:06 17:42 WBC RBC Hgb Hct MCHC RDW Lymph % (Auto) [place] % (Auto) Lymph # (Auto) [place] # (Auto) Seg Neutrophils % Seg Neuts % (Manual) Lymphocytes % (Manual) Monocytes % (Manual) Nucleated RBC % Seg Neutrophils # Seg Neutrophils # Man Lymphocytes # (Manual) Monocytes # (Manual) PT INR D-Dimer ABG pH 7.464 H POC ABG pCO2 POC ABG pO2 ABG pO2 ABG HCO3 ABG Base Excess ABG Hemoglobin 9.9 L ABG Oxyhemoglobin ABG Sodium 131.6 L ABG Potassium ABG Chloride 97.0 L ABG Glucose 281 H Carboxyhemoglobin 0.1 L Sodium Potassium Chloride Carbon Dioxide BUN Creatinine Glucose POC Glucose 298 H 340 H Lactic Acid Calcium Phosphorus Ferritin Total Bilirubin Direct Bilirubin AST ALT Lactate Dehydrogenase Total Creatine Kinase Troponin T Total Protein Albumin Triglycerides Arterial Blood Glucose 281 H Arterial Blood Ionized Calcium 3.9 L Urine pH Urine Creatinine Salicylates Acetaminophen Coronavirus (PCR) 09/10/20 09/11/20 09/11/20 23:07 04:44 05:17 WBC RBC Hgb Hct MCHC RDW Lymph % (Auto) [place] % (Auto) Lymph # (Auto) [place] # (Auto) Seg Neutrophils % Seg Neuts % (Manual) Lymphocytes % (Manual) Monocytes % (Manual) Nucleated RBC % Seg Neutrophils # Seg Neutrophils # Man Lymphocytes # (Manual) Monocytes # (Manual) PT 16.9 H INR 1.39 H D-Dimer ABG pH POC ABG pCO2 POC ABG pO2 ABG pO2 ABG HCO3 ABG Base Excess ABG Hemoglobin ABG Oxyhemoglobin ABG Sodium ABG Potassium ABG Chloride ABG Glucose Carboxyhemoglobin Sodium Potassium Chloride Carbon Dioxide BUN Creatinine Glucose POC Glucose 367 H 416 H Lactic Acid Calcium Phosphorus Ferritin Total Bilirubin Direct Bilirubin AST ALT Lactate Dehydrogenase Total Creatine Kinase Troponin T Total Protein Albumin Triglycerides Arterial Blood Glucose Arterial Blood Ionized Calcium Urine pH Urine Creatinine Salicylates Acetaminophen Coronavirus (PCR) 09/11/20 09/11/20 09/11/20 05:40 12:01 17:50 WBC RBC Hgb Hct MCHC RDW Lymph % (Auto) [place] % (Auto) Lymph # (Auto) [place] # (Auto) Seg Neutrophils % Seg Neuts % (Manual) Lymphocytes % (Manual) Monocytes % (Manual) Nucleated RBC % Seg Neutrophils # Seg Neutrophils # Man Lymphocytes # (Manual) Monocytes # (Manual) PT INR D-Dimer ABG pH 7.543 H POC ABG pCO2 POC ABG pO2 ABG pO2 112.1 H ABG HCO3 28.1 H ABG Base Excess 5.4 H ABG Hemoglobin 8.4 L ABG Oxyhemoglobin ABG Sodium ABG Potassium ABG Chloride ABG Glucose Carboxyhemoglobin Sodium Potassium Chloride Carbon Dioxide BUN Creatinine Glucose POC Glucose 418 H 404 H Lactic Acid Calcium Phosphorus Ferritin Total Bilirubin Direct Bilirubin AST ALT Lactate Dehydrogenase Total Creatine Kinase Troponin T Total Protein Albumin Triglycerides Arterial Blood Glucose Arterial Blood Ionized Calcium Urine pH Urine Creatinine Salicylates Acetaminophen Coronavirus (PCR) 09/11/20 09/11/20 09/12/20 23:10 23:43 03:15 WBC RBC Hgb Hct MCHC RDW Lymph % (Auto) [place] % (Auto) Lymph # (Auto) [place] # (Auto) Seg Neutrophils % Seg Neuts % (Manual) Lymphocytes % (Manual) Monocytes % (Manual) Nucleated RBC % Seg Neutrophils # Seg Neutrophils # Man Lymphocytes # (Manual) Monocytes # (Manual) PT INR D-Dimer ABG pH POC ABG pCO2 POC ABG pO2 ABG pO2 ABG HCO3 ABG Base Excess ABG Hemoglobin ABG Oxyhemoglobin ABG Sodium ABG Potassium ABG Chloride ABG Glucose Carboxyhemoglobin Sodium 135 L Potassium Chloride 92.3 L Carbon Dioxide BUN 62 H Creatinine 3.7 H Glucose 406 H POC Glucose 372 H 359 H Lactic Acid Calcium Phosphorus Ferritin Total Bilirubin Direct Bilirubin AST 687 H ALT 3701 H Lactate Dehydrogenase Total Creatine Kinase Troponin T Total Protein 5.8 L Albumin 3.1 L Triglycerides Arterial Blood Glucose Arterial Blood Ionized Calcium Urine pH Urine Creatinine Salicylates Acetaminophen Coronavirus (PCR) 09/12/20 09/12/20 09/12/20 03:18 04:00 04:00 WBC 13.7 H RBC 3.30 L Hgb 9.3 L Hct 27.6 L MCHC RDW 17.5 H Lymph % (Auto) [place] % (Auto) Lymph # (Auto) [place] # (Auto) Seg Neutrophils % Seg Neuts % (Manual) 76.0 H Lymphocytes % (Manual) 11.0 L Monocytes % (Manual) 13.0 H Nucleated RBC % Seg Neutrophils # Seg Neutrophils # Man 10.4 H Lymphocytes # (Manual) Monocytes # (Manual) 1.8 H PT 16.1 H INR 1.31 H D-Dimer ABG pH 7.558 H POC ABG pCO2 POC ABG pO2 74.7 L ABG pO2 ABG HCO3 ABG Base Excess ABG Hemoglobin 9.7 L ABG Oxyhemoglobin ABG Sodium 132.4 L ABG Potassium ABG Chloride 95.0 L ABG Glucose 437 H Carboxyhemoglobin Sodium Potassium Chloride Carbon Dioxide BUN Creatinine Glucose POC Glucose Lactic Acid Calcium Phosphorus Ferritin Total Bilirubin Direct Bilirubin AST ALT Lactate Dehydrogenase Total Creatine Kinase Troponin T Total Protein Albumin Triglycerides Arterial Blood Glucose 437 H Arterial Blood Ionized Calcium 4.3 L Urine pH Urine Creatinine Salicylates Acetaminophen Coronavirus (PCR) 09/12/20 09/12/20 09/12/20 04:21 05:20 06:37 WBC RBC Hgb Hct MCHC RDW Lymph % (Auto) [place] % (Auto) Lymph # (Auto) [place] # (Auto) Seg Neutrophils % Seg Neuts % (Manual) Lymphocytes % (Manual) Monocytes % (Manual) Nucleated RBC % Seg Neutrophils # Seg Neutrophils # Man Lymphocytes # (Manual) Monocytes # (Manual) PT INR D-Dimer ABG pH POC ABG pCO2 POC ABG pO2 ABG pO2 ABG HCO3 ABG Base Excess ABG Hemoglobin ABG Oxyhemoglobin ABG Sodium ABG Potassium ABG Chloride ABG Glucose Carboxyhemoglobin Sodium Potassium Chloride Carbon Dioxide BUN Creatinine Glucose POC Glucose 417 H 397 H 370 H Lactic Acid Calcium Phosphorus Ferritin Total Bilirubin Direct Bilirubin AST ALT Lactate Dehydrogenase Total Creatine Kinase Troponin T Total Protein Albumin Triglycerides Arterial Blood Glucose Arterial Blood Ionized Calcium Urine pH Urine Creatinine Salicylates Acetaminophen Coronavirus (PCR) 09/12/20 09/12/20 09/12/20 11:56 17:14 21:52 WBC RBC Hgb Hct MCHC RDW Lymph % (Auto) [place] % (Auto) Lymph # (Auto) [place] # (Auto) Seg Neutrophils % Seg Neuts % (Manual) Lymphocytes % (Manual) Monocytes % (Manual) Nucleated RBC % Seg Neutrophils # Seg Neutrophils # Man Lymphocytes # (Manual) Monocytes # (Manual) PT INR D-Dimer ABG pH POC ABG pCO2 POC ABG pO2 ABG pO2 ABG HCO3 ABG Base Excess ABG Hemoglobin ABG Oxyhemoglobin ABG Sodium ABG Potassium ABG Chloride ABG Glucose Carboxyhemoglobin Sodium Potassium Chloride Carbon Dioxide BUN Creatinine Glucose POC Glucose 341 H 325 H 285 H Lactic Acid Calcium Phosphorus Ferritin Total Bilirubin Direct Bilirubin AST ALT Lactate Dehydrogenase Total Creatine Kinase Troponin T Total Protein Albumin Triglycerides Arterial Blood Glucose Arterial Blood Ionized Calcium Urine pH Urine Creatinine Salicylates Acetaminophen Coronavirus (PCR) 09/12/20 09/12/20 09/12/20 23:39 Unknown Unknown WBC RBC Hgb Hct MCHC RDW Lymph % (Auto) [place] % (Auto) Lymph # (Auto) [place] # (Auto) Seg Neutrophils % Seg Neuts % (Manual) Lymphocytes % (Manual) Monocytes % (Manual) Nucleated RBC % Seg Neutrophils # Seg Neutrophils # Man Lymphocytes # (Manual) Monocytes # (Manual) PT INR D-Dimer ABG pH POC ABG pCO2 POC ABG pO2 ABG pO2 ABG HCO3 ABG Base Excess ABG Hemoglobin ABG Oxyhemoglobin ABG Sodium ABG Potassium ABG Chloride ABG Glucose Carboxyhemoglobin Sodium 135 L Potassium Chloride 92.2 L Carbon Dioxide BUN 65 H Creatinine 3.5 H Glucose 418 H POC Glucose 338 H Lactic Acid Calcium Phosphorus Ferritin Total Bilirubin Direct Bilirubin AST 553 H ALT 3453 H Lactate Dehydrogenase Total Creatine Kinase Troponin T Total Protein 5.9 L Albumin 3.0 L Triglycerides 220 H Arterial Blood Glucose Arterial Blood Ionized Calcium Urine pH Urine Creatinine Salicylates Acetaminophen Coronavirus (PCR) 09/13/20 09/13/20 09/13/20 04:47 05:24 10:50 WBC RBC Hgb Hct MCHC RDW Lymph % (Auto) [place] % (Auto) Lymph # (Auto) [place] # (Auto) Seg Neutrophils % Seg Neuts % (Manual) Lymphocytes % (Manual) Monocytes % (Manual) Nucleated RBC % Seg Neutrophils # Seg Neutrophils # Man Lymphocytes # (Manual) Monocytes # (Manual) PT INR D-Dimer ABG pH 7.571 H POC ABG pCO2 POC ABG pO2 69.0 L ABG pO2 ABG HCO3 ABG Base Excess ABG Hemoglobin 10.1 L ABG Oxyhemoglobin 93.2 L ABG Sodium 134.0 L ABG Potassium ABG Chloride ABG Glucose 365 H Carboxyhemoglobin 0.4 L Sodium Potassium Chloride 96.6 L Carbon Dioxide 32 H BUN 76 H Creatinine 3.1 H Glucose 395 H POC Glucose 329 H Lactic Acid Calcium Phosphorus Ferritin Total Bilirubin Direct Bilirubin AST ALT Lactate Dehydrogenase Total Creatine Kinase Troponin T Total Protein Albumin Triglycerides Arterial Blood Glucose 365 H Arterial Blood Ionized Calcium Urine pH Urine Creatinine Salicylates Acetaminophen Coronavirus (PCR) 09/13/20 09/13/20 09/13/20 11:39 17:48 23:35 WBC RBC Hgb Hct MCHC RDW Lymph % (Auto) [place] % (Auto) Lymph # (Auto) [place] # (Auto) Seg Neutrophils % Seg Neuts % (Manual) Lymphocytes % (Manual) Monocytes % (Manual) Nucleated RBC % Seg Neutrophils # Seg Neutrophils # Man Lymphocytes # (Manual) Monocytes # (Manual) PT INR D-Dimer ABG pH POC ABG pCO2 POC ABG pO2 ABG pO2 ABG HCO3 ABG Base Excess ABG Hemoglobin ABG Oxyhemoglobin ABG Sodium ABG Potassium ABG Chloride ABG Glucose Carboxyhemoglobin Sodium Potassium Chloride Carbon Dioxide BUN Creatinine Glucose POC Glucose 344 H 286 H 223 H Lactic Acid Calcium Phosphorus Ferritin Total Bilirubin Direct Bilirubin AST ALT Lactate Dehydrogenase Total Creatine Kinase Troponin T Total Protein Albumin Triglycerides Arterial Blood Glucose Arterial Blood Ionized Calcium Urine pH Urine Creatinine Salicylates Acetaminophen Coronavirus (PCR) 09/14/20 09/14/20 09/14/20 03:54 05:34 10:27 WBC RBC Hgb Hct MCHC RDW Lymph % (Auto) [place] % (Auto) Lymph # (Auto) [place] # (Auto) Seg Neutrophils % Seg Neuts % (Manual) Lymphocytes % (Manual) Monocytes % (Manual) Nucleated RBC % Seg Neutrophils # Seg Neutrophils # Man Lymphocytes # (Manual) Monocytes # (Manual) PT INR D-Dimer ABG pH POC ABG pCO2 POC ABG pO2 71.1 L ABG pO2 ABG HCO3 ABG Base Excess ABG Hemoglobin 10.3 L ABG Oxyhemoglobin ABG Sodium 135.2 L ABG Potassium ABG Chloride ABG Glucose 281 H Carboxyhemoglobin Sodium Potassium Chloride 96.6 L Carbon Dioxide BUN 100 H Creatinine 3.9 H Glucose 286 H POC Glucose 252 H Lactic Acid Calcium Phosphorus Ferritin Total Bilirubin Direct Bilirubin AST 145 H ALT 1400 H Lactate Dehydrogenase Total Creatine Kinase Troponin T Total Protein 5.6 L Albumin 2.9 L Triglycerides Arterial Blood Glucose 281 H Arterial Blood Ionized Calcium Urine pH Urine Creatinine Salicylates Acetaminophen Coronavirus (PCR) 09/14/20 09/14/20 09/14/20 11:38 17:52 23:07 WBC RBC Hgb Hct MCHC RDW Lymph % (Auto) [place] % (Auto) Lymph # (Auto) [place] # (Auto) Seg Neutrophils % Seg Neuts % (Manual) Lymphocytes % (Manual) Monocytes % (Manual) Nucleated RBC % Seg Neutrophils # Seg Neutrophils # Man Lymphocytes # (Manual) Monocytes # (Manual) PT INR D-Dimer ABG pH POC ABG pCO2 POC ABG pO2 ABG pO2 ABG HCO3 ABG Base Excess ABG Hemoglobin ABG Oxyhemoglobin ABG Sodium ABG Potassium ABG Chloride ABG Glucose Carboxyhemoglobin Sodium Potassium Chloride Carbon Dioxide BUN Creatinine Glucose POC Glucose 247 H 247 H 256 H Lactic Acid Calcium Phosphorus Ferritin Total Bilirubin Direct Bilirubin AST ALT Lactate Dehydrogenase Total Creatine Kinase Troponin T Total Protein Albumin Triglycerides Arterial Blood Glucose Arterial Blood Ionized Calcium Urine pH Urine Creatinine Salicylates Acetaminophen Coronavirus (PCR) 09/15/20 09/15/20 09/15/20 04:54 11:24 17:48 WBC RBC Hgb Hct MCHC RDW Lymph % (Auto) [place] % (Auto) Lymph # (Auto) [place] # (Auto) Seg Neutrophils % Seg Neuts % (Manual) Lymphocytes % (Manual) Monocytes % (Manual) Nucleated RBC % Seg Neutrophils # Seg Neutrophils # Man Lymphocytes # (Manual) Monocytes # (Manual) PT INR D-Dimer ABG pH POC ABG pCO2 POC ABG pO2 ABG pO2 ABG HCO3 ABG Base Excess ABG Hemoglobin ABG Oxyhemoglobin ABG Sodium ABG Potassium ABG Chloride ABG Glucose Carboxyhemoglobin Sodium Potassium Chloride Carbon Dioxide BUN Creatinine Glucose POC Glucose 271 H 228 H 254 H Lactic Acid Calcium Phosphorus Ferritin Total Bilirubin Direct Bilirubin AST ALT Lactate Dehydrogenase Total Creatine Kinase Troponin T Total Protein Albumin Triglycerides Arterial Blood Glucose Arterial Blood Ionized Calcium Urine pH Urine Creatinine Salicylates Acetaminophen Coronavirus (PCR) 09/15/20 09/15/20 09/15/20 19:20 19:20 23:13 WBC 27.3 H RBC 3.16 L Hgb 8.8 L Hct 27.0 L MCHC RDW 19.7 H Lymph % (Auto) [place] % (Auto) Lymph # (Auto) [place] # (Auto) Seg Neutrophils % Seg Neuts % (Manual) 81.0 H Lymphocytes % (Manual) 9.0 L Monocytes % (Manual) 10.0 H Nucleated RBC % Seg Neutrophils # Seg Neutrophils # Man 22.1 H Lymphocytes # (Manual) Monocytes # (Manual) 2.7 H PT INR D-Dimer ABG pH POC ABG pCO2 POC ABG pO2 ABG pO2 ABG HCO3 ABG Base Excess ABG Hemoglobin ABG Oxyhemoglobin ABG Sodium ABG Potassium ABG Chloride ABG Glucose Carboxyhemoglobin Sodium Potassium Chloride Carbon Dioxide BUN 68 H Creatinine 2.8 H Glucose 288 H POC Glucose 259 H Lactic Acid Calcium Phosphorus Ferritin Total Bilirubin Direct Bilirubin AST ALT Lactate Dehydrogenase Total Creatine Kinase Troponin T Total Protein Albumin Triglycerides Arterial Blood Glucose Arterial Blood Ionized Calcium Urine pH Urine Creatinine Salicylates Acetaminophen Coronavirus (PCR) 09/16/20 09/16/20 09/16/20 05:27 09:40 11:48 WBC RBC Hgb Hct MCHC RDW Lymph % (Auto) [place] % (Auto) Lymph # (Auto) [place] # (Auto) Seg Neutrophils % Seg Neuts % (Manual) Lymphocytes % (Manual) Monocytes % (Manual) Nucleated RBC % Seg Neutrophils # Seg Neutrophils # Man Lymphocytes # (Manual) Monocytes # (Manual) PT INR D-Dimer ABG pH POC ABG pCO2 POC ABG pO2 ABG pO2 ABG HCO3 ABG Base Excess ABG Hemoglobin ABG Oxyhemoglobin ABG Sodium ABG Potassium ABG Chloride ABG Glucose Carboxyhemoglobin Sodium Potassium Chloride Carbon Dioxide 31 H BUN 77 H Creatinine 2.9 H Glucose 250 H POC Glucose 275 H 234 H Lactic Acid Calcium Phosphorus Ferritin Total Bilirubin Direct Bilirubin AST ALT Lactate Dehydrogenase Total Creatine Kinase Troponin T Total Protein Albumin Triglycerides Arterial Blood Glucose Arterial Blood Ionized Calcium Urine pH Urine Creatinine Salicylates Acetaminophen Coronavirus (PCR) 09/16/20 09/16/20 09/17/20 17:40 23:23 00:01 WBC RBC Hgb Hct MCHC RDW Lymph % (Auto) [place] % (Auto) Lymph # (Auto) [place] # (Auto) Seg Neutrophils % Seg Neuts % (Manual) Lymphocytes % (Manual) Monocytes % (Manual) Nucleated RBC % Seg Neutrophils # Seg Neutrophils # Man Lymphocytes # (Manual) Monocytes # (Manual) PT INR D-Dimer ABG pH POC ABG pCO2 POC ABG pO2 ABG pO2 ABG HCO3 ABG Base Excess ABG Hemoglobin ABG Oxyhemoglobin ABG Sodium ABG Potassium ABG Chloride ABG Glucose Carboxyhemoglobin Sodium Potassium Chloride Carbon Dioxide BUN Creatinine Glucose POC Glucose 172 H 161 H Lactic Acid 2.10 H* Calcium Phosphorus Ferritin Total Bilirubin Direct Bilirubin AST ALT Lactate Dehydrogenase Total Creatine Kinase Troponin T Total Protein Albumin Triglycerides Arterial Blood Glucose Arterial Blood Ionized Calcium Urine pH Urine Creatinine Salicylates Acetaminophen Coronavirus (PCR) 09/17/20 09/17/20 09/17/20 04:00 04:00 05:09 WBC 19.5 H RBC 3.03 L Hgb 8.6 L Hct 26.3 L MCHC RDW 19.4 H Lymph % (Auto) 8.7 L [place] % (Auto) 13.7 H Lymph # (Auto) [place] # (Auto) 2.7 H Seg Neutrophils % 76.9 H Seg Neuts % (Manual) Lymphocytes % (Manual) Monocytes % (Manual) Nucleated RBC % Seg Neutrophils # 15.0 H Seg Neutrophils # Man Lymphocytes # (Manual) Monocytes # (Manual) PT INR D-Dimer ABG pH POC ABG pCO2 POC ABG pO2 ABG pO2 ABG HCO3 ABG Base Excess ABG Hemoglobin ABG Oxyhemoglobin ABG Sodium ABG Potassium ABG Chloride ABG Glucose Carboxyhemoglobin Sodium 146 H Potassium 3.1 L Chloride Carbon Dioxide BUN 79 H Creatinine 2.6 H Glucose 122 H POC Glucose 116 H Lactic Acid Calcium Phosphorus Ferritin Total Bilirubin Direct Bilirubin AST 64 H ALT 516 H Lactate Dehydrogenase Total Creatine Kinase Troponin T Total Protein 5.7 L Albumin 2.8 L Triglycerides Arterial Blood Glucose Arterial Blood Ionized Calcium Urine pH Urine Creatinine Salicylates Acetaminophen Coronavirus (PCR) 09/17/20 09/17/20 09/18/20 13:52 17:38 05:16 WBC RBC Hgb Hct MCHC RDW Lymph % (Auto) [place] % (Auto) Lymph # (Auto) [place] # (Auto) Seg Neutrophils % Seg Neuts % (Manual) Lymphocytes % (Manual) Monocytes % (Manual) Nucleated RBC % Seg Neutrophils # Seg Neutrophils # Man Lymphocytes # (Manual) Monocytes # (Manual) PT INR D-Dimer ABG pH POC ABG pCO2 POC ABG pO2 ABG pO2 ABG HCO3 ABG Base Excess ABG Hemoglobin ABG Oxyhemoglobin ABG Sodium ABG Potassium ABG Chloride ABG Glucose Carboxyhemoglobin Sodium Potassium Chloride Carbon Dioxide BUN Creatinine Glucose POC Glucose 68 L 126 H Lactic Acid 2.90 H* Calcium Phosphorus Ferritin Total Bilirubin Direct Bilirubin AST ALT Lactate Dehydrogenase Total Creatine Kinase Troponin T Total Protein Albumin Triglycerides Arterial Blood Glucose Arterial Blood Ionized Calcium Urine pH Urine Creatinine Salicylates Acetaminophen Coronavirus (PCR) 09/18/20 09/18/20 09/18/20 05:30 05:30 11:42 WBC 18.2 H RBC 3.18 L Hgb 9.0 L Hct 27.2 L MCHC RDW 18.8 H Lymph % (Auto) [place] % (Auto) Lymph # (Auto) [place] # (Auto) Seg Neutrophils % Seg Neuts % (Manual) Lymphocytes % (Manual) Monocytes % (Manual) Nucleated RBC % Seg Neutrophils # Seg Neutrophils # Man Lymphocytes # (Manual) Monocytes # (Manual) PT INR D-Dimer ABG pH POC ABG pCO2 POC ABG pO2 ABG pO2 ABG HCO3 ABG Base Excess ABG Hemoglobin ABG Oxyhemoglobin ABG Sodium ABG Potassium ABG Chloride ABG Glucose Carboxyhemoglobin Sodium Potassium 3.1 L Chloride Carbon Dioxide BUN 73 H Creatinine 2.6 H Glucose 154 H POC Glucose 140 H Lactic Acid Calcium Phosphorus Ferritin Total Bilirubin Direct Bilirubin AST ALT Lactate Dehydrogenase Total Creatine Kinase Troponin T Total Protein Albumin Triglycerides Arterial Blood Glucose Arterial Blood Ionized Calcium Urine pH Urine Creatinine Salicylates Acetaminophen Coronavirus (PCR) 09/18/20 09/18/20 09/19/20 18:15 23:37 05:13 WBC 22.8 H RBC 3.30 L Hgb 9.2 L Hct 28.1 L MCHC RDW 18.2 H Lymph % (Auto) [place] % (Auto) Lymph # (Auto) [place] # (Auto) Seg Neutrophils % Seg Neuts % (Manual) 87.0 H Lymphocytes % (Manual) 5.0 L Monocytes % (Manual) Nucleated RBC % Seg Neutrophils # Seg Neutrophils # Man 19.8 H Lymphocytes # (Manual) 1.1 L Monocytes # (Manual) 1.6 H PT INR D-Dimer ABG pH POC ABG pCO2 POC ABG pO2 ABG pO2 ABG HCO3 ABG Base Excess ABG Hemoglobin ABG Oxyhemoglobin ABG Sodium ABG Potassium ABG Chloride ABG Glucose Carboxyhemoglobin Sodium Potassium Chloride Carbon Dioxide BUN Creatinine Glucose POC Glucose 149 H 153 H Lactic Acid Calcium Phosphorus Ferritin Total Bilirubin Direct Bilirubin AST ALT Lactate Dehydrogenase Total Creatine Kinase Troponin T Total Protein Albumin Triglycerides Arterial Blood Glucose Arterial Blood Ionized Calcium Urine pH Urine Creatinine Salicylates Acetaminophen Coronavirus (PCR) 09/19/20 09/19/20 09/19/20 05:13 05:25 11:56 WBC RBC Hgb Hct MCHC RDW Lymph % (Auto) [place] % (Auto) Lymph # (Auto) [place] # (Auto) Seg Neutrophils % Seg Neuts % (Manual) Lymphocytes % (Manual) Monocytes % (Manual) Nucleated RBC % Seg Neutrophils # Seg Neutrophils # Man Lymphocytes # (Manual) Monocytes # (Manual) PT INR D-Dimer ABG pH POC ABG pCO2 POC ABG pO2 ABG pO2 ABG HCO3 ABG Base Excess ABG Hemoglobin ABG Oxyhemoglobin ABG Sodium ABG Potassium ABG Chloride ABG Glucose Carboxyhemoglobin Sodium Potassium Chloride Carbon Dioxide BUN 55 H Creatinine 2.3 H Glucose 196 H POC Glucose 168 H 137 H Lactic Acid Calcium Phosphorus Ferritin Total Bilirubin Direct Bilirubin AST ALT Lactate Dehydrogenase Total Creatine Kinase Troponin T Total Protein Albumin Triglycerides Arterial Blood Glucose Arterial Blood Ionized Calcium Urine pH Urine Creatinine Salicylates Acetaminophen Coronavirus (PCR) 09/19/20 09/19/20 09/20/20 17:43 23:43 05:02 WBC RBC Hgb Hct MCHC RDW Lymph % (Auto) [place] % (Auto) Lymph # (Auto) [place] # (Auto) Seg Neutrophils % Seg Neuts % (Manual) Lymphocytes % (Manual) Monocytes % (Manual) Nucleated RBC % Seg Neutrophils # Seg Neutrophils # Man Lymphocytes # (Manual) Monocytes # (Manual) PT INR D-Dimer ABG pH POC ABG pCO2 POC ABG pO2 ABG pO2 ABG HCO3 ABG Base Excess ABG Hemoglobin ABG Oxyhemoglobin ABG Sodium ABG Potassium ABG Chloride ABG Glucose Carboxyhemoglobin Sodium Potassium Chloride Carbon Dioxide BUN Creatinine Glucose POC Glucose 114 H 136 H 163 H Lactic Acid Calcium Phosphorus Ferritin Total Bilirubin Direct Bilirubin AST ALT Lactate Dehydrogenase Total Creatine Kinase Troponin T Total Protein Albumin Triglycerides Arterial Blood Glucose Arterial Blood Ionized Calcium Urine pH Urine Creatinine Salicylates Acetaminophen Coronavirus (PCR) 09/20/20 09/20/20 09/20/20 05:36 05:36 11:10 WBC 20.1 H RBC 3.07 L Hgb 8.5 L Hct 26.4 L MCHC RDW 18.6 H Lymph % (Auto) 9.6 L [place] % (Auto) 9.6 H Lymph # (Auto) [place] # (Auto) 1.9 H Seg Neutrophils % 79.0 H Seg Neuts % (Manual) Lymphocytes % (Manual) Monocytes % (Manual) Nucleated RBC % Seg Neutrophils # 15.9 H Seg Neutrophils # Man Lymphocytes # (Manual) Monocytes # (Manual) PT INR D-Dimer ABG pH POC ABG pCO2 POC ABG pO2 ABG pO2 ABG HCO3 ABG Base Excess ABG Hemoglobin ABG Oxyhemoglobin ABG Sodium ABG Potassium ABG Chloride ABG Glucose Carboxyhemoglobin Sodium Potassium 3.3 L Chloride Carbon Dioxide BUN 76 H Creatinine 3.6 H D Glucose 213 H POC Glucose 167 H Lactic Acid Calcium Phosphorus Ferritin Total Bilirubin Direct Bilirubin AST ALT Lactate Dehydrogenase Total Creatine Kinase Troponin T Total Protein Albumin Triglycerides Arterial Blood Glucose Arterial Blood Ionized Calcium Urine pH Urine Creatinine Salicylates Acetaminophen Coronavirus (PCR) 09/20/20 09/20/20 09/20/20 14:02 17:24 23:30 WBC RBC Hgb Hct MCHC RDW Lymph % (Auto) [place] % (Auto) Lymph # (Auto) [place] # (Auto) Seg Neutrophils % Seg Neuts % (Manual) Lymphocytes % (Manual) Monocytes % (Manual) Nucleated RBC % Seg Neutrophils # Seg Neutrophils # Man Lymphocytes # (Manual) Monocytes # (Manual) PT INR D-Dimer ABG pH POC ABG pCO2 POC ABG pO2 ABG pO2 ABG HCO3 ABG Base Excess ABG Hemoglobin ABG Oxyhemoglobin ABG Sodium ABG Potassium ABG Chloride ABG Glucose Carboxyhemoglobin Sodium Potassium Chloride Carbon Dioxide BUN Creatinine Glucose POC Glucose 164 H 146 H 147 H Lactic Acid Calcium Phosphorus Ferritin Total Bilirubin Direct Bilirubin AST ALT Lactate Dehydrogenase Total Creatine Kinase Troponin T Total Protein Albumin Triglycerides Arterial Blood Glucose Arterial Blood Ionized Calcium Urine pH Urine Creatinine Salicylates Acetaminophen Coronavirus (PCR) 09/21/20 09/21/20 09/21/20 05:00 05:00 05:24 WBC 17.4 H RBC 2.95 L Hgb 8.3 L Hct 25.8 L MCHC RDW 19.3 H Lymph % (Auto) 11.1 L [place] % (Auto) 11.1 H Lymph # (Auto) [place] # (Auto) 1.9 H Seg Neutrophils % 75.9 H Seg Neuts % (Manual) Lymphocytes % (Manual) Monocytes % (Manual) Nucleated RBC % Seg Neutrophils # 13.2 H Seg Neutrophils # Man Lymphocytes # (Manual) Monocytes # (Manual) PT INR D-Dimer ABG pH POC ABG pCO2 POC ABG pO2 ABG pO2 ABG HCO3 ABG Base Excess ABG Hemoglobin ABG Oxyhemoglobin ABG Sodium ABG Potassium ABG Chloride ABG Glucose Carboxyhemoglobin Sodium Potassium Chloride Carbon Dioxide BUN 60 H Creatinine 3.5 H Glucose 185 H POC Glucose 139 H Lactic Acid Calcium Phosphorus Ferritin Total Bilirubin Direct Bilirubin AST ALT Lactate Dehydrogenase Total Creatine Kinase Troponin T Total Protein Albumin Triglycerides Arterial Blood Glucose Arterial Blood Ionized Calcium Urine pH Urine Creatinine Salicylates Acetaminophen Coronavirus (PCR) 09/21/20 09/21/20 09/21/20 11:59 17:59 23:32 WBC RBC Hgb Hct MCHC RDW Lymph % (Auto) [place] % (Auto) Lymph # (Auto) [place] # (Auto) Seg Neutrophils % Seg Neuts % (Manual) Lymphocytes % (Manual) Monocytes % (Manual) Nucleated RBC % Seg Neutrophils # Seg Neutrophils # Man Lymphocytes # (Manual) Monocytes # (Manual) PT INR D-Dimer ABG pH POC ABG pCO2 POC ABG pO2 ABG pO2 ABG HCO3 ABG Base Excess ABG Hemoglobin ABG Oxyhemoglobin ABG Sodium ABG Potassium ABG Chloride ABG Glucose Carboxyhemoglobin Sodium Potassium Chloride Carbon Dioxide BUN Creatinine Glucose POC Glucose 183 H 141 H 162 H Lactic Acid Calcium Phosphorus Ferritin Total Bilirubin Direct Bilirubin AST ALT Lactate Dehydrogenase Total Creatine Kinase Troponin T Total Protein Albumin Triglycerides Arterial Blood Glucose Arterial Blood Ionized Calcium Urine pH Urine Creatinine Salicylates Acetaminophen Coronavirus (PCR) 09/22/20 09/22/20 09/22/20 05:32 12:07 17:53 WBC RBC Hgb Hct MCHC RDW Lymph % (Auto) [place] % (Auto) Lymph # (Auto) [place] # (Auto) Seg Neutrophils % Seg Neuts % (Manual) Lymphocytes % (Manual) Monocytes % (Manual) Nucleated RBC % Seg Neutrophils # Seg Neutrophils # Man Lymphocytes # (Manual) Monocytes # (Manual) PT INR D-Dimer ABG pH POC ABG pCO2 POC ABG pO2 ABG pO2 ABG HCO3 ABG Base Excess ABG Hemoglobin ABG Oxyhemoglobin ABG Sodium ABG Potassium ABG Chloride ABG Glucose Carboxyhemoglobin Sodium Potassium Chloride Carbon Dioxide BUN Creatinine Glucose POC Glucose 172 H 169 H 178 H Lactic Acid Calcium Phosphorus Ferritin Total Bilirubin Direct Bilirubin AST ALT Lactate Dehydrogenase Total Creatine Kinase Troponin T Total Protein Albumin Triglycerides Arterial Blood Glucose Arterial Blood Ionized Calcium Urine pH Urine Creatinine Salicylates Acetaminophen Coronavirus (PCR) 09/22/20 09/23/20 09/23/20 23:34 05:21 06:05 WBC RBC Hgb Hct MCHC RDW Lymph % (Auto) [place] % (Auto) Lymph # (Auto) [place] # (Auto) Seg Neutrophils % Seg Neuts % (Manual) Lymphocytes % (Manual) Monocytes % (Manual) Nucleated RBC % Seg Neutrophils # Seg Neutrophils # Man Lymphocytes # (Manual) Monocytes # (Manual) PT INR D-Dimer ABG pH POC ABG pCO2 POC ABG pO2 ABG pO2 ABG HCO3 ABG Base Excess ABG Hemoglobin ABG Oxyhemoglobin ABG Sodium ABG Potassium ABG Chloride ABG Glucose Carboxyhemoglobin Sodium 147 H Potassium Chloride 109.2 H Carbon Dioxide 21 L BUN 54 H Creatinine 4.2 H Glucose 193 H POC Glucose 151 H 168 H Lactic Acid Calcium Phosphorus Ferritin Total Bilirubin Direct Bilirubin AST ALT Lactate Dehydrogenase Total Creatine Kinase Troponin T Total Protein Albumin Triglycerides Arterial Blood Glucose Arterial Blood Ionized Calcium Urine pH Urine Creatinine Salicylates Acetaminophen Coronavirus (PCR) 09/23/20 09/23/20 09/23/20 12:30 17:52 23:16 WBC RBC Hgb Hct MCHC RDW Lymph % (Auto) [place] % (Auto) Lymph # (Auto) [place] # (Auto) Seg Neutrophils % Seg Neuts % (Manual) Lymphocytes % (Manual) Monocytes % (Manual) Nucleated RBC % Seg Neutrophils # Seg Neutrophils # Man Lymphocytes # (Manual) Monocytes # (Manual) PT INR D-Dimer ABG pH POC ABG pCO2 POC ABG pO2 ABG pO2 ABG HCO3 ABG Base Excess ABG Hemoglobin ABG Oxyhemoglobin ABG Sodium ABG Potassium ABG Chloride ABG Glucose Carboxyhemoglobin Sodium Potassium Chloride Carbon Dioxide BUN Creatinine Glucose POC Glucose 170 H 164 H 160 H Lactic Acid Calcium Phosphorus Ferritin Total Bilirubin Direct Bilirubin AST ALT Lactate Dehydrogenase Total Creatine Kinase Troponin T Total Protein Albumin Triglycerides Arterial Blood Glucose Arterial Blood Ionized Calcium Urine pH Urine Creatinine Salicylates Acetaminophen Coronavirus (PCR) 09/24/20 09/24/20 05:22 05:44 WBC RBC Hgb Hct MCHC RDW Lymph % (Auto) [place] % (Auto) Lymph # (Auto) [place] # (Auto) Seg Neutrophils % Seg Neuts % (Manual) Lymphocytes % (Manual) Monocytes % (Manual) Nucleated RBC % Seg Neutrophils # Seg Neutrophils # Man Lymphocytes # (Manual) Monocytes # (Manual) PT INR D-Dimer ABG pH POC ABG pCO2 POC ABG pO2 ABG pO2 ABG HCO3 ABG Base Excess ABG Hemoglobin ABG Oxyhemoglobin ABG Sodium ABG Potassium ABG Chloride ABG Glucose Carboxyhemoglobin Sodium 148 H Potassium Chloride 109.2 H Carbon Dioxide BUN 61 H Creatinine 4.9 H Glucose 176 H POC Glucose 150 H Lactic Acid Calcium Phosphorus Ferritin Total Bilirubin Direct Bilirubin AST ALT Lactate Dehydrogenase Total Creatine Kinase Troponin T Total Protein Albumin Triglycerides Arterial Blood Glucose Arterial Blood Ionized Calcium Urine pH Urine Creatinine Salicylates Acetaminophen Coronavirus (PCR)
[2020-09-25] MEDS: INSULIN LISPRO 100 UNIT/ML SUB-Q SCH ×4 (00:22→17:21)
[2020-09-25] MEDS: METOCLOPRAMIDE 10 MG/2 ML INJ IV SCH ×4 (00:22→17:20)
[2020-09-25] MEDS: hydrALAZINE 25 MG TAB PO SCH ×3 (05:24→21:13)
[2020-09-25 06:06] LABS: Albumin 2.6 g/dL (3.9-5); Calcium 9.4 mg/dL (8.4-10.2)
--- NOTE | 2020-09-25 09:21 | Progress Note ---
Assessment and Plan Impression: * Nonoliguric RYAN secondary to ATN * Severe hyperkalemia - resolved * COVID 19 PNA * s/p OOH cardiac arrest * Acute hypoxic respiratory failure * Seizure activity * Anemia * Hypernatremia Plan: * Patient is s/p emergent HD - 09/08 * Continue MWF for now, due today, creatinine continues to uptrend off HD indicating minimal renal recovery * Does remain non-oliguric, 700cc urine output over past 24 hours * Check labs daily * Strict I/O * Will continue to monitor for renal recovery * Keep MAP > 65 * Vent management per CCM * Steroids per primary team/ID * Dose medications for renal function * Avoid potential nephrotoxins * Prognosis is guarded Subjective Date of service: 09/25/20 Principal diagnosis: Abnormal LFTs, s/p cardiac arrest, acute kidney injury with ATN Interval history: On CPAP via trach, FiO2 30%, no acute issues noted Reviewed chart extensively including primary and specialist team notes Objective - Exam Narrative Exam: Direct examination deferred to avoid PPE overuse in COVID-19 pandemic. Seen through ICU window, ventilated on trach. - Vital Signs Vital signs: Vital Signs - 12hr 09/24/20 09/24/20 09/24/20 21:30 21:45 21:59 Temperature Pulse Rate 56 L 56 L 57 L Pulse Rate [ From Monitor] Respiratory 30 H 30 H Rate Blood Pressure 160/81 150/74 150/74 O2 Sat by Pulse 100 100 Oximetry O2 Sat by Pulse Oximetry [ Assessment] 09/24/20 09/24/20 09/24/20 22:00 22:15 22:30 Temperature Pulse Rate 56 L 59 L 56 L Pulse Rate [ From Monitor] Respiratory 30 H 30 H 30 H Rate Blood Pressure 162/77 158/72 159/70 O2 Sat by Pulse 100 100 100 Oximetry O2 Sat by Pulse Oximetry [ Assessment] 09/24/20 09/24/20 09/24/20 22:45 23:00 23:15 Temperature Pulse Rate 57 L 56 L 58 L Pulse Rate [ From Monitor] Respiratory 30 H 30 H 30 H Rate Blood Pressure 157/72 153/70 154/67 O2 Sat by Pulse 100 100 100 Oximetry O2 Sat by Pulse Oximetry [ Assessment] 09/24/20 09/24/20 09/24/20 23:20 23:30 23:45 Temperature Pulse Rate 56 L 57 L 57 L Pulse Rate [ From Monitor] Respiratory 30 H 30 H 30 H Rate Blood Pressure 154/67 157/67 150/66 O2 Sat by Pulse 100 100 100 Oximetry O2 Sat by Pulse Oximetry [ Assessment] 09/24/20 09/25/20 09/25/20 23:53 00:00 00:15 Temperature 97.8 F Pulse Rate 56 L 56 L Pulse Rate [ 56 L From Monitor] Respiratory 30 H 30 H Rate Blood Pressure 142/67 149/68 O2 Sat by Pulse 100 100 Oximetry O2 Sat by Pulse Oximetry [ Assessment] 09/25/20 09/25/20 09/25/20 00:30 00:45 01:00 Temperature Pulse Rate 57 L 56 L 56 L Pulse Rate [ From Monitor] Respiratory 30 H 30 H 30 H Rate Blood Pressure 145/66 145/67 145/64 O2 Sat by Pulse 100 100 100 Oximetry O2 Sat by Pulse Oximetry [ Assessment] 09/25/20 09/25/20 09/25/20 01:15 01:30 01:45 Temperature Pulse Rate 56 L 55 L 55 L Pulse Rate [ From Monitor] Respiratory 30 H 30 H 30 H Rate Blood Pressure 144/67 141/66 145/67 O2 Sat by Pulse 100 100 100 Oximetry O2 Sat by Pulse Oximetry [ Assessment] 09/25/20 09/25/20 09/25/20 02:00 02:15 02:30 Temperature Pulse Rate 54 L 57 L 60 Pulse Rate [ From Monitor] Respiratory 30 H 30 H 30 H Rate Blood Pressure 138/66 154/69 159/79 O2 Sat by Pulse 100 100 100 Oximetry O2 Sat by Pulse Oximetry [ Assessment] 09/25/20 09/25/20 09/25/20 02:46 03:00 03:16 Temperature Pulse Rate 63 63 63 Pulse Rate [ From Monitor] Respiratory 30 H 26 H 30 H Rate Blood Pressure 159/79 135/66 135/66 O2 Sat by Pulse 100 100 Oximetry O2 Sat by Pulse Oximetry [ Assessment] 09/25/20 09/25/20 09/25/20 03:28 03:30 03:46 Temperature 97.4 F L Pulse Rate 61 57 L Pulse Rate [ From Monitor] Respiratory 30 H 30 H Rate Blood Pressure 133/65 159/79 O2 Sat by Pulse 100 100 Oximetry O2 Sat by Pulse Oximetry [ Assessment] 09/25/20 09/25/20 09/25/20 04:00 04:16 04:30 Temperature Pulse Rate 55 L 56 L 54 L Pulse Rate [ 56 L From Monitor] Respiratory 30 H 30 H 30 H Rate Blood Pressure 131/65 131/65 130/66 O2 Sat by Pulse 100 100 100 Oximetry O2 Sat by Pulse Oximetry [ Assessment] 09/25/20 09/25/20 09/25/20 04:46 05:00 05:16 Temperature Pulse Rate 56 L 54 L 54 L Pulse Rate [ From Monitor] Respiratory 30 H 30 H 30 H Rate Blood Pressure 130/66 131/69 131/69 O2 Sat by Pulse 100 100 100 Oximetry O2 Sat by Pulse Oximetry [ Assessment] 09/25/20 09/25/20 09/25/20 05:24 05:30 05:43 Temperature Pulse Rate 56 L 55 L 56 L Pulse Rate [ From Monitor] Respiratory 25 H Rate Blood Pressure 131/69 136/73 136/73 O2 Sat by Pulse 100 100 Oximetry O2 Sat by Pulse Oximetry [ Assessment] 09/25/20 09/25/20 09/25/20 05:46 06:00 06:16 Temperature Pulse Rate 55 L 58 L 58 L Pulse Rate [ From Monitor] Respiratory 30 H 30 H 30 H Rate Blood Pressure 136/73 121/68 121/68 O2 Sat by Pulse 100 100 100 Oximetry O2 Sat by Pulse Oximetry [ Assessment] 09/25/20 09/25/20 09/25/20 06:30 06:46 07:00 Temperature Pulse Rate 56 L 57 L 57 L Pulse Rate [ From Monitor] Respiratory 30 H 30 H 30 H Rate Blood Pressure 118/67 118/67 119/67 O2 Sat by Pulse 100 100 100 Oximetry O2 Sat by Pulse Oximetry [ Assessment] 09/25/20 09/25/20 09/25/20 07:16 07:30 07:44 Temperature Pulse Rate 56 L 57 L 57 L Pulse Rate [ From Monitor] Respiratory 30 H 30 H Rate Blood Pressure 119/67 128/69 128/69 O2 Sat by Pulse 100 100 100 Oximetry O2 Sat by Pulse 100 Oximetry [ Assessment] 09/25/20 09/25/20 09/25/20 07:46 08:00 08:16 Temperature 98.2 F Pulse Rate 56 L 63 61 Pulse Rate [ From Monitor] Respiratory 0 L 8 L 0 L Rate Blood Pressure 128/69 139/74 139/74 O2 Sat by Pulse 100 100 Oximetry O2 Sat by Pulse Oximetry [ Assessment] 09/25/20 09/25/20 09/25/20 08:30 08:46 09:00 Temperature Pulse Rate 62 63 61 Pulse Rate [ From Monitor] Respiratory 0 L 0 L 27 H Rate Blood Pressure 143/78 143/78 144/76 O2 Sat by Pulse 100 100 100 Oximetry O2 Sat by Pulse Oximetry [ Assessment] - Lab 09/21/20 05:00 09/25/20 05:18 Most recent lab results ABG pH 7.442 (7.320-7.450) 09/14/20 03:54 ABG pCO2 33.4 mm Hg 09/11/20 05:40 ABG pO2 112.1 mm Hg (80.0-90.0) H 09/11/20 05:40 ABG HCO3 28.1 mmol/L (20.0-26.0) H 09/11/20 05:40 ABG O2 Saturation 98.4 % (95.0-99.0) 09/11/20 05:40 Calcium 9.4 mg/dL (8.4-10.2) 09/25/20 05:18 Phosphorus 8.00 mg/dL (2.5-4.5) H 09/08/20 12:02 Magnesium 1.80 mg/dL (1.7-2.3) 09/08/20 12:02 Urine Creatinine 182.4 mg/dL (0.1-20.0) H 09/08/20 Unknown Urine Sodium 40 mmol/L 09/08/20 Unknown Medications & Allergies - Medications Allergies/Adverse Reactions: Allergies No Known Allergies Allergy (Verified 09/21/20 21:00) Verified with , no known drug allergies. Home Medications: Home Medications Medication Instructions Recorded Confirmed Last Taken Type Albuterol Sulfate 60 mcg IH PRN 09/11/20 09/11/20 Unknown History Cholecalciferol (Vitamin D3) 25 tab PO DAILY 09/11/20 09/11/20 Unknown History Cozaar 25 tab PO DAILY 09/11/20 09/11/20 Unknown History HumaLOG 14 unit SQ AC 09/11/20 09/11/20 Unknown History Hydralazine HCl 50 tab PO TID 09/11/20 09/11/20 Unknown History Isosorbide Dinitrate 30 mg PO DAILY 09/11/20 09/11/20 Unknown History Lantus VIAL 54 units SQ HS 09/11/20 09/11/20 Unknown History Lasix 20 tab PO DAILY 09/11/20 09/11/20 Unknown History Nifedipine 30 tab PO DAILY 09/11/20 09/11/20 Unknown History Active Medications: Generic Name Dose Route Start Last Admin Trade Name Freq PRN Reason Stop Dose Admin Acetaminophen 400 mg 09/10/20 20:50 09/14/20 23:38 Acetaminophen 325 Mg/10.15 Ml Oral Liqd Unit Dose PO 400 mg Q4HR PRN Administration Non Cardiac Pain or Temp>100.5 Lipase/Protease/Amylase 1 each 09/09/20 09:40 Lipase 10,500/Protease 25,000/Amylase 43,750 (Units) Dr Armenta FEEDTUBE PRN PRN For Clogged Feeding Tube Famotidine 20 mg 09/20/20 11:00 09/24/20 09:04 Famotidine 20 Mg/2 Ml Inj IV 20 mg DAILY TAYLOR Administration Hydralazine HCl 50 mg 09/23/20 14:00 09/25/20 05:24 Hydralazine 25 Mg Tab PO 50 mg Q8HR TAYLOR Administration Hydrophilic Ointment 1 applic 09/07/20 13:08 Lip Therapy Vaseline TP Q2HR PRN Dry Lips Sodium Chloride 100 mls @ 999 mls/hr 09/09/20 13:36 Nacl 0.9% IV JAYJAY PRN Hypotension Levetiracetam 1,500 mg/ 115 mls @ 400 mls/hr 09/11/20 10:00 09/24/20 21:59 Dextrose IV 400 mls/hr BID TAYLOR Administration Valproate Sodium 1,000 mg/ 110 mls @ 100 mls/hr 09/14/20 22:00 09/24/20 21:59 Sodium Chloride IV 100 mls/hr Q12HR TAYLOR Administration Insulin Human Lispro 0 unit 09/12/20 12:00 09/25/20 06:12 Insulin Lispro 100 Unit/Ml SUB-Q Not Given Q6HR TAYLOR Protocol Lansoprazole 30 mg 09/11/20 11:00 09/19/20 22:04 Lansoprazole 30 Mg Solutab FEEDTUBE 30 mg BID TAYLOR Administration Lorazepam 2 mg 09/08/20 00:14 09/14/20 13:36 Lorazepam 2 Mg/Ml Vial IV 2 mg Q4H PRN Administration Seizures Metoclopramide HCl 5 mg 09/22/20 12:00 09/25/20 05:24 Metoclopramide 10 Mg/2 Ml Inj IV 5 mg Q6HR TAYLOR Administration Multi-Ingred Cream/Lotion/Oil/Oint 1 applic 09/07/20 13:08 09/20/20 10:50 Mineral Oil/Petrolatum, White Ophth Oint 3.5 Gm OU 1 applic Q4HR PRN Administration Dry Eye(s) Multivitamins 5 ml 09/09/20 12:00 09/24/20 09:04 Multivitamins 5 Ml Oral Liquid PO 5 ml QDAY TAYLOR Administration Ondansetron HCl 4 mg 09/07/20 17:55 09/19/20 04:00 Ondansetron 4 Mg/2 Ml Inj IV 4 mg Q8H PRN Administration Nausea And Vomiting Senna/Docusate Sodium 2 tab 09/20/20 11:00 Sennosides/Docusate Sodium 8.6/50 Mg Tab PO BID PRN Laxative Effect Simple Syrup 15 ml 09/09/20 09:40 09/17/20 17:43 Simple Syrup 15 Ml FEEDTUBE 15 ml PRN PRN Administration Hypoglycemia Simple Syrup 30 ml 09/09/20 09:40 Simple Syrup 15 Ml FEEDTUBE PRN PRN Hypoglycemia Sodium Bicarbonate 325 mg 09/09/20 09:40 Sodium Bicarbonate 325 Mg Tab FEEDTUBE PRN PRN For Clogged Feeding Tube Sodium Chloride 10 ml 09/07/20 22:00 09/24/20 22:00 Sodium Chloride 0.9% 10 Ml Flush Syringe IV 10 ml BID TAYLOR Administration Sodium Chloride 10 ml 09/07/20 17:55 Sodium Chloride 0.9% 10 Ml Flush Syringe IV PRN PRN LINE FLUSH
--- NOTE | 2020-09-25 09:22 | Progress Note ---
Assessment and Plan Assessment and plan: S/p cardiopulmonary arrest Toxic metabolic encephalopathy +/-anoxic injury Acute hypoxic respiratory failure Acute kidney injury Seizure disorder Hyperkalemia COVID-19 pneumonia Sepsis Transaminitis Morbid obesity. 09/15/2020. MRI brain for further evaluation. Continue AEDs of valproic acid and Keppra. Continue hemodialysis per nephrology recommendations. Overall prognosis remains guarded and poor. 09/16/2020. ID recommends continue to monitor patient off of antibiotics. Fever most likely of central etiology. Patient with questionable seizures versus myoclonus from anoxic brain injury. Patient unable to undergo MRI due to body habitus. Continue AEDs per neurology recommendations. Inflammatory markers elevated. Patient was recently hospitalized for COVID-19 pneumonia at the [facility] prior to being hospitalized here. Patient not a candidate for remdesivir due to hepatic and renal failure. Viral hepatitis panel negative. Overall prognosis extremely poor. 09/17/2020. Fevers have resolved over the past 48 hours. Continue to monitor off antibiotics per ID recommendations. Patient with questionable seizures versus myoclonus from anoxic brain injury. Patient unable to undergo MRI due to body habitus. EEG is nonspecific but given CT of head findings consistent with anoxic encephalopathy, brain injury. Continue AEDs per neurology recommendations. Inflammatory markers elevated. Patient was recently hospitalized for COVID-19 pneumonia at the [facility] prior to being hospitalized here. Patient not a candidate for remdesivir due to hepatic and renal failure. Viral hepatitis panel negative. Patient is s/p emergent HD on Friday (hyperK) and Friday - 09/08. Patient also S/p HD 09/15. Continue hemodialysis per nephrology recommendations. Patient currently on AC/PRVC mode ventilation with rate of 30, tidal volume 475, FiO2 30% and PEEP of 6. As stated in neuro note, overall prognosis is very poor. 09/18/2020. Fevers have resolved over the past 72 hours. Continue to monitor off antibiotics per ID recommendations. Leukocytosis persistent for the past 4 days. Patient with questionable seizures/myoclonus from anoxic brain injury. Patient unable to undergo MRI due to body habitus. EEG is nonspecific but given CT of head findings consistent with anoxic encephalopathy, brain injury. Continue AEDs per neurology recommendations. Inflammatory markers elevated. Patient was recently hospitalized for COVID-19 pneumonia at the [facility] prior to being hospitalized here. Patient not a candidate for remdesivir due to hepatic and renal failure. Viral hepatitis panel negative. Patient currently on AC/PRVC mode ventilation with rate of 30, tidal volume 475, FiO2 30% and PEEP of 6. Overall prognosis remains guarded/poor. 09/19/2020 Fevers have resolved over the past 4 days. Continue to monitor off antibiotics per ID recommendations. Leukocytosis persistent for the past 4 days. Patient with questionable seizures/myoclonus from anoxic brain injury. Patient unable to undergo MRI due to body habitus. EEG is nonspecific but given CT of head findings consistent with anoxic encephalopathy, brain injury. Continue AEDs per neurology recommendations. Inflammatory markers elevated. Patient was recently hospitalized for COVID-19 pneumonia at the [facility] prior to being hospitalized here. Patient not a candidate for remdesivir due to hepatic and renal failure. Viral hepatitis panel negative. Patient currently on AC/PRVC mode ventilation with rate of 30, tidal volume 475, FiO2 30% and PEEP of 6. Overall prognosis remains guarded/poor. 09/20/2020 -Surgery consulted for PEG and trach, will continue to follow. 09/21/2020; patient will have PEG and trach by Dr. hayes today. Prognosis is poor. Continue with current management. Specialist Field Engineer is following for vent management. 09/22/2020; patient had PEG and trach yesterday. 09/23/2020; continue PEG Tube Feeding. 09/24/2020; continue PEG tube feeding, patient is on Keppra, lorazepam and phenytoin per neurology recommendation. Patient is on hemodialysis and nephrology is following. Management of mechanical ventilation for CCM. 09/25/2020. Continue PEG tube feeding, patient is on Keppra, lorazepam and phenytoin per neurology recommendation. Patient is on hemodialysis and nephrology is following. Management of mechanical ventilation for CCM. Continue PSV/CPAP 07/16. Continue tracheostomy care, secretion control and airway management. The high probability of a clinically significant, sudden or life threatening deterioration of the [cardiac, respiratory and neurological] system(s) required my full and direct attention, intervention and personal management. The aggregate critical care time was [32] minutes. This time is in addition to time spent performing reported procedures but includes the following: [x] Data Review and interpretation [x] Patient assessment and monitoring of vital signs [x] Documentation [x] Medication orders and management History Interval history: 65 y/o male with out of hospital cardiac arrest, acute hypoxic respiratory failure and COVID-19 infection. Hospitalist Physical - Constitutional Vitals: Temp Pulse Resp BP Pulse Ox 98.2 F 61 27 H 144/76 100 09/25/20 08:00 09/25/20 09:00 09/25/20 09:00 09/25/20 09:00 09/25/20 09:00 General appearance: Present: other (On mechanical ventilation) - EENT Eyes: Present: PERRL, EOM intact ENT: hearing intact, clear oral mucosa, dentition normal - Neck Neck: Present: supple, normal ROM - Respiratory Respiratory effort: normal Respiratory: bilateral: CTA - Cardiovascular Rhythm: regular Heart Sounds: Present: S1 & S2. Absent: gallop, rub - Extremities Extremities: no ischemia, No edema, Full ROM - Abdominal General gastrointestinal: soft, non-tender, non-distended, normal bowel sounds - Integumentary Integumentary: Present: clear, warm, dry - Neurologic Neurologic: CNII-XII intact, moves all extremities HEART Score - HEART Score Troponin: Troponin T 0.076 ng/mL (0.00-0.029) H 09/07/20 14:00 Results - Labs CBC & Chem 7: 09/21/20 05:00 09/25/20 05:18 Labs: Laboratory Last Values WBC 17.4 K/mm3 (4.5-11.0) H 09/21/20 05:00 RBC 2.95 M/mm3 (3.65-5.03) L 09/21/20 05:00 Hgb 8.3 gm/dl (11.8-15.2) L 09/21/20 05:00 Hct 25.8 % (35.5-45.6) L 09/21/20 05:00 MCV 87 fl (84-94) 09/21/20 05:00 MCH 28 pg (28-32) 09/21/20 05:00 MCHC 32 % (32-34) 09/21/20 05:00 RDW 19.3 % (13.2-15.2) H 09/21/20 05:00 Plt Count 212 K/mm3 (140-440) 09/21/20 05:00 Lymph % (Auto) 11.1 % (13.4-35.0) L 09/21/20 05:00 [place] % (Auto) 11.1 % (0.0-7.3) H 09/21/20 05:00 Eos % (Auto) 1.8 % (0.0-4.3) 09/21/20 05:00 Baso % (Auto) 0.1 % (0.0-1.8) 09/21/20 05:00 Lymph # (Auto) 1.9 K/mm3 (1.2-5.4) 09/21/20 05:00 [place] # (Auto) 1.9 K/mm3 (0.0-0.8) H 09/21/20 05:00 Eos # (Auto) 0.3 K/mm3 (0.0-0.4) 09/21/20 05:00 Baso # (Auto) 0.0 K/mm3 (0.0-0.1) 09/21/20 05:00 Add Manual Diff Complete 09/19/20 05:13 Total Counted 100 09/19/20 05:13 Seg Neutrophils % 75.9 % (40.0-70.0) H 09/21/20 05:00 Seg Neuts % (Manual) 87.0 % (40.0-70.0) H 09/19/20 05:13 Band Neutrophils % 1.0 % 09/19/20 05:13 Lymphocytes % (Manual) 5.0 % (13.4-35.0) L 09/19/20 05:13 Monocytes % (Manual) 7.0 % (0.0-7.3) 09/19/20 05:13 Eosinophils % (Manual) 2.0 % (0.0-4.3) 09/07/20 14:00 Metamyelocytes % 2.0 % 09/08/20 Unknown Nucleated RBC % Not Reportable 09/19/20 05:13 Seg Neutrophils # 13.2 K/mm3 (1.8-7.7) H 09/21/20 05:00 Seg Neutrophils # Man 19.8 K/mm3 (1.8-7.7) H 09/19/20 05:13 Band Neutrophils # 0.2 K/mm3 09/19/20 05:13 Lymphocytes # (Manual) 1.1 K/mm3 (1.2-5.4) L 09/19/20 05:13 Abs React Lymphs (Man) 0.0 K/mm3 09/19/20 05:13 Monocytes # (Manual) 1.6 K/mm3 (0.0-0.8) H 09/19/20 05:13 Eosinophils # (Manual) 0.0 K/mm3 (0.0-0.4) 09/19/20 05:13 Basophils # (Manual) 0.0 K/mm3 (0.0-0.1) 09/19/20 05:13 Metamyelocytes # 0.0 K/mm3 09/19/20 05:13 Myelocytes # 0.0 K/mm3 09/19/20 05:13 Promyelocytes # 0.0 K/mm3 09/19/20 05:13 Blast Cells # 0.0 K/mm3 09/19/20 05:13 WBC Morphology Not Reportable 09/19/20 05:13 Hypersegmented Neuts Not Reportable 09/19/20 05:13 Hyposegmented Neuts Not Reportable 09/19/20 05:13 Hypogranular Neuts Not Reportable 09/19/20 05:13 Smudge Cells Not Reportable 09/19/20 05:13 Toxic Granulation Not Reportable 09/19/20 05:13 Toxic Vacuolation Not Reportable 09/19/20 05:13 Dohle Bodies Not Reportable 09/19/20 05:13 Pelger-Huet Anomaly Not Reportable 09/19/20 05:13 Justus Rods Not Reportable 09/19/20 05:13 Platelet Estimate Consistent w auto 09/19/20 05:13 Clumped Platelets Not Reportable 09/19/20 05:13 Plt Clumps, EDTA Not Reportable 09/19/20 05:13 Large Platelets Not Reportable 09/19/20 05:13 Giant Platelets Not Reportable 09/19/20 05:13 Platelet Satelliting Not Reportable 09/19/20 05:13 Plt Morphology Comment Not Reportable 09/19/20 05:13 RBC Morphology Not Reportable 09/19/20 05:13 Dimorphic RBCs Not Reportable 09/19/20 05:13 Polychromasia Not Reportable 09/19/20 05:13 Hypochromasia Not Reportable 09/19/20 05:13 Poikilocytosis Not Reportable 09/19/20 05:13 Anisocytosis 1+ 09/19/20 05:13 Microcytosis Not Reportable 09/19/20 05:13 Macrocytosis Not Reportable 09/19/20 05:13 Spherocytes Not Reportable 09/19/20 05:13 Pappenheimer Bodies Not Reportable 09/19/20 05:13 Sickle Cells Not Reportable 09/19/20 05:13 Target Cells Not Reportable 09/19/20 05:13 Tear Drop Cells Not Reportable 09/19/20 05:13 Ovalocytes Not Reportable 09/19/20 05:13 Helmet Cells Not Reportable 09/19/20 05:13 [place] Bodies Not Reportable 09/19/20 05:13 [place] Rings Not Reportable 09/19/20 05:13 [place] Cells Not Reportable 09/19/20 05:13 Bite Cells Not Reportable 09/19/20 05:13 Crenated Cell Not Reportable 09/19/20 05:13 Elliptocytes Not Reportable 09/19/20 05:13 Acanthocytes (Spur) Not Reportable 09/19/20 05:13 Rouleaux Not Reportable 09/19/20 05:13 Hemoglobin C Crystals Not Reportable 09/19/20 05:13 Schistocytes Not Reportable 09/19/20 05:13 Malaria parasites Not Reportable 09/19/20 05:13 [place] Bodies Not Reportable 09/19/20 05:13 Hem Pathologist Commnt No 09/19/20 05:13 PT 16.1 Sec. (12.2-14.9) H 09/12/20 04:00 INR 1.31 (0.87-1.13) H 09/12/20 04:00 APTT 32.4 Sec. (24.2-36.6) 09/09/20 10:00 D-Dimer 8315.85 ng/mlDDU (0-234) H 09/07/20 14:00 ABG pH 7.442 (7.320-7.450) 09/14/20 03:54 POC ABG pCO2 42.3 mmHg (32.0-48.0) 09/14/20 03:54 ABG pCO2 33.4 mm Hg 09/11/20 05:40 POC ABG pO2 71.1 mmHg (83-108) L 09/14/20 03:54 ABG pO2 112.1 mm Hg (80.0-90.0) H 09/11/20 05:40 POC ABG HCO3 28.2 09/14/20 03:54 ABG HCO3 28.1 mmol/L (20.0-26.0) H 09/11/20 05:40 ABG O2 Saturation 98.4 % (95.0-99.0) 09/11/20 05:40 ABG O2 Content 11.6 (0.0-44) 09/11/20 05:40 POC ABG Base Excess 3.7 09/14/20 03:54 ABG Base Excess 5.4 mmol/L (-2.0-3.0) H 09/11/20 05:40 ABG Hemoglobin 10.3 (12.0-17.5) L 09/14/20 03:54 ABG Oxyhemoglobin 93.2 (94-98) L 09/13/20 04:47 ABG Carboxyhemoglobin 1.2 % (0.0-5.0) 09/11/20 05:40 ABG Methemoglobin 0.3 (0.0-1.5) 09/13/20 04:47 ABG Sodium 135.2 mmol/L (136.0-145.0) L 09/14/20 03:54 ABG Potassium 3.8 mmol/L (3.40-4.50) 09/14/20 03:54 ABG Chloride 98.0 mmol/L (98-107) 09/14/20 03:54 ABG Glucose 281 mg/dL (65-95) H 09/14/20 03:54 Oxyhemoglobin 96.8 % (95.0-99.0) 09/11/20 05:40 Carboxyhemoglobin 0.4 (0.5-1.5) L 09/13/20 04:47 FiO2 30 09/14/20 03:54 Sodium 149 mmol/L (137-145) H 09/25/20 05:18 Potassium 3.3 mmol/L (3.6-5.0) L 09/25/20 05:18 Chloride 109.6 mmol/L (98-107) H 09/25/20 05:18 Carbon Dioxide 22 mmol/L (22-30) 09/25/20 05:18 Anion Gap 21 mmol/L 09/25/20 05:18 BUN 70 mg/dL (9-20) H 09/25/20 05:18 Creatinine 5.6 mg/dL (0.8-1.3) H 09/25/20 05:18 Estimated GFR 12 ml/min 09/25/20 05:18 BUN/Creatinine Ratio 13 % 09/25/20 05:18 Glucose 196 mg/dL (75-100) H 09/25/20 05:18 POC Glucose 153 mg/dL (70-105) H 09/24/20 17:28 Lactic Acid 2.90 mmol/L (0.7-2.0) H* 09/17/20 13:52 Calcium 9.4 mg/dL (8.4-10.2) 09/25/20 05:18 Phosphorus 8.00 mg/dL (2.5-4.5) H 09/08/20 12:02 Magnesium 1.80 mg/dL (1.7-2.3) 09/08/20 12:02 Ferritin > 2000.0 ng/mL (30.0-300.0) H 09/07/20 14:00 Total Bilirubin 0.50 mg/dL (0.1-1.2) 09/25/20 05:18 Direct Bilirubin 0.5 mg/dL (0-0.2) H 09/08/20 05:00 Indirect Bilirubin 0.5 mg/dL 09/08/20 05:00 AST 55 units/L (5-40) H 09/25/20 05:18 ALT 74 units/L (7-56) H 09/25/20 05:18 Alkaline Phosphatase 81 units/L (35-129) 09/25/20 05:18 Ammonia 50.0 umol/L (25-60) 09/07/20 14:00 Lactate Dehydrogenase 882 units/L (91-180) H 09/07/20 14:00 Total Creatine Kinase 477 units/L (55-170) H 09/07/20 14:00 Troponin T 0.076 ng/mL (0.00-0.029) H 09/07/20 14:00 C-Reactive Protein 1.10 mg/dL (0.00-1.30) 09/07/20 14:00 Total Protein 7.0 g/dL (6.3-8.2) 09/25/20 05:18 Albumin 2.6 g/dL (3.9-5) L 09/25/20 05:18 Albumin/Globulin Ratio 0.6 % 09/25/20 05:18 Triglycerides 220 mg/dL (2-149) H 09/12/20 Unknown Procalcitonin 1.52 ng/mL (<0.15) 09/17/20 13:02 TSH 2.290 mlU/mL (0.270-4.200) 09/07/20 14:00 Arterial Blood Glucose 281 mg/dL (65-95) H 09/14/20 03:54 Arterial Blood Ionized Calcium 4.6 mg/dL (4.6-5.3) 09/14/20 03:54 Urine Color Straw (Yellow) 09/07/20 13:08 Urine Turbidity Slightly-cloudy (Clear) 09/07/20 13:08 Urine pH 8.0 (5.0-7.0) H 09/07/20 13:08 Ur Specific [place] 1.006 (1.003-1.030) 09/07/20 13:08 Urine Protein 100 mg/dl mg/dL (Negative) 09/07/20 13:08 Urine Glucose (UA) Neg mg/dL (Negative) 09/07/20 13:08 Urine Ketones Neg mg/dL (Negative) 09/07/20 13:08 Urine Blood Neg (Negative) 09/07/20 13:08 Urine Nitrite Neg (Negative) 09/07/20 13:08 Urine Bilirubin Neg (Negative) 09/07/20 13:08 Urine Urobilinogen < 2.0 mg/dL (<2.0) 09/07/20 13:08 Ur Leukocyte Esterase Neg (Negative) 09/07/20 13:08 Urine WBC (Auto) 4.0 /HPF (0.0-6.0) 09/07/20 13:08 Urine RBC (Auto) 18.0 /HPF (0.0-6.0) 09/07/20 13:08 U Epithel Cells (Auto) 1.0 /HPF (0-13.0) 09/07/20 13:08 Urine Mucus Few /HPF 09/07/20 13:08 Urine Sperm 3+ /HPF (ADMINISTRATIVE SECRETARY) 09/07/20 13:08 Urine Creatinine 182.4 mg/dL (0.1-20.0) H 09/08/20 Unknown Urine Sodium 40 mmol/L 09/08/20 Unknown Salicylates < 0.3 mg/dL (2.8-20.0) L 09/07/20 14:00 Acetaminophen 5.0 ug/mL (10.0-30.0) L 09/07/20 14:00 Plasma/Serum Alcohol < 0.01 % (0-0.07) 09/07/20 14:00 Coronavirus (PCR) Negative (Negative) 09/19/20 Unknown Hepatitis A IgM Ab Non-reactive (NonReactive) 09/07/20 14:00 Hep Bs Antigen Non-reactive (Negative) 09/07/20 14:00 Hep B Core IgM Ab Non-reactive (NonReactive) 09/07/20 14:00 Hepatitis C Antibody Non-reactive (NonReactive) 09/07/20 14:00 HIV 1&2 Antibody Rapid Non react (Non React) 09/07/20 14:34 HIV P24 Antigen Non react (Non React) 09/07/20 14:34 Blood Type O POSITIVE 09/09/20 10:00 Antibody Screen Negative 09/07/20 14:00 Mae/IV: Voiding Method Indwelling Catheter IV Catheter Type [Right Triple Lumen Cath Femoral] IV Catheter Type [Left Peripheral IV Antecubital] IV Catheter Type [Left Hand] Peripheral IV IV Catheter Type [Right Peripheral IV Antecubital] Active Medications - Current Medications Current Medications: Generic Name Dose Route Start Last Admin Trade Name Freq PRN Reason Stop Dose Admin Acetaminophen 400 mg 09/10/20 20:50 09/14/20 23:38 Acetaminophen 325 Mg/10.15 Ml Oral Liqd Unit Dose PO 400 mg Q4HR PRN Administration Non Cardiac Pain or Temp>100.5 Lipase/Protease/Amylase 1 each 09/09/20 09:40 Lipase 10,500/Protease 25,000/Amylase 43,750 (Units) Dr Armenta FEEDTUBE PRN PRN For Clogged Feeding Tube Famotidine 20 mg 09/20/20 11:00 09/24/20 09:04 Famotidine 20 Mg/2 Ml Inj IV 20 mg DAILY TAYLOR Administration Hydralazine HCl 50 mg 09/23/20 14:00 09/25/20 05:24 Hydralazine 25 Mg Tab PO 50 mg Q8HR TAYLOR Administration Hydrophilic Ointment 1 applic 09/07/20 13:08 Lip Therapy Vaseline TP Q2HR PRN Dry Lips Sodium Chloride 100 mls @ 999 mls/hr 09/09/20 13:36 Nacl 0.9% IV JAYJAY PRN Hypotension Levetiracetam 1,500 mg/ 115 mls @ 400 mls/hr 09/11/20 10:00 09/24/20 21:59 Dextrose IV 400 mls/hr BID TAYLOR Administration Valproate Sodium 1,000 mg/ 110 mls @ 100 mls/hr 09/14/20 22:00 09/24/20 21:59 Sodium Chloride IV 100 mls/hr Q12HR TAYLRO Administration Insulin Human Lispro 0 unit 09/12/20 12:00 09/25/20 06:12 Insulin Lispro 100 Unit/Ml SUB-Q Not Given Q6HR [facility] Protocol Lansoprazole 30 mg 09/11/20 11:00 09/19/20 22:04 Lansoprazole 30 Mg Solutab FEEDTUBE 30 mg BID TAYLOR Administration Lorazepam 2 mg 09/08/20 00:14 09/14/20 13:36 Lorazepam 2 Mg/Ml Vial IV 2 mg Q4H PRN Administration Seizures Metoclopramide HCl 5 mg 09/22/20 12:00 09/25/20 05:24 Metoclopramide 10 Mg/2 Ml Inj IV 5 mg Q6HR TAYLOR Administration Multi-Ingred Cream/Lotion/Oil/Oint 1 applic 09/07/20 13:08 09/20/20 10:50 Mineral Oil/Petrolatum, White Ophth Oint 3.5 Gm OU 1 applic Q4HR PRN Administration Dry Eye(s) Multivitamins 5 ml 09/09/20 12:00 09/24/20 09:04 Multivitamins 5 Ml Oral Liquid PO 5 ml QDAY TAYLOR Administration Ondansetron HCl 4 mg 09/07/20 17:55 09/19/20 04:00 Ondansetron 4 Mg/2 Ml Inj IV 4 mg Q8H PRN Administration Nausea And Vomiting Senna/Docusate Sodium 2 tab 09/20/20 11:00 Sennosides/Docusate Sodium 8.6/50 Mg Tab PO BID PRN Laxative Effect Simple Syrup 15 ml 09/09/20 09:40 09/17/20 17:43 Simple Syrup 15 Ml FEEDTUBE 15 ml PRN PRN Administration Hypoglycemia Simple Syrup 30 ml 09/09/20 09:40 Simple Syrup 15 Ml FEEDTUBE PRN PRN Hypoglycemia Sodium Bicarbonate 325 mg 09/09/20 09:40 Sodium Bicarbonate 325 Mg Tab FEEDTUBE PRN PRN For Clogged Feeding Tube Sodium Chloride 10 ml 09/07/20 22:00 09/24/20 22:00 Sodium Chloride 0.9% 10 Ml Flush Syringe IV 10 ml BID TAYLOR Administration Sodium Chloride 10 ml 09/07/20 17:55 Sodium Chloride 0.9% 10 Ml Flush Syringe IV PRN PRN LINE FLUSH Nutrition/Malnutrition Assess - Dietary Evaluation Nutrition/Malnutrition Findings: Nutrition Notes Start: 09/08/20 12:01 Freq: Status: Active Protocol: Document 09/22/20 10:47 AT (Rec: 09/22/20 11:09 AT [email or web address]) Co-Sign 09/22/20 10:47 Nutrition Notes Initial or Follow up Reassessment Current Diagnosis Acute Kidney Injury, Respiratory Failure Other Pertinent Diagnosis on HD, cardiac arrest, COVID ( +), metabolic encephalopathy, pneu Current Diet Nepro 1.8 at 45 mL/hr (goal rate) Labs/Tests Reviewed Pertinent Medications MVI Humalog Height 6 ft Weight 166.5 kg [place] Body Weight (kg) 80.90 BMI 49.8 Weight Status Morbidly Obese Subjective/Other Information Follow up for PEG placement and TF restart. Pt is s/p PEG placement. Pt remains on vent. Per chart, pt had residuals of 75mL when TF was restarted at 20 mL/hr. Per MD, pt will start bowel regimen and hold feedings for 24 hr. Per MD, pt 's reports NKFA. Awaiting updated weight. Percent of energy/protein needs met: 43%/26% Burn Absent Trauma Absent GI Symptoms Vomiting Current % PO Negligible Minimum of two criteria No physical signs of malnutrition #1 Nutrition Diagnosis Inadequate oral intake Diagnosis Progress(for reassessment Continues documentation) Is patient on ventilator? Yes Is Patient Ambulatory and/or Out of Bed No REE-([place]-confined to bed) 2995.752 Kcal/Kg value to use for calculation 12 Approximate Energy Requirements Using 1998 kcal/Kg Calculation Used for Recommendations Kcal/kg Additional Notes PRO needs: >149g (>1.2g/kg AdBW 124kg) Fluid needs: 4211-6458 mL or per MD Nutrition Intervention Change Diet Order: Continue TF Nutrition Support: Nepro 1.8 at 45 mL/hr Flush 200 mL q4h Kcal 1,944 Protein (gm) 87 Fluid (mL) 785 Goal #1 Meet nutrient needs as best as possible with TF Anticipated Discharge Needs: TF Follow-Up By: 09/25/20 Additional Comments F/U for TF restart and weight
[2020-09-25] MEDS: levETIRAcetam 1,500 MG in DEXTROSE 5% IN WATER 100 ML IV SCH ×2 (10:11→21:13)
[2020-09-25] MEDS: VALPROATE SODIUM 1,000 MG in SODIUM CHLORIDE 0.9% 100 ML IV SCH ×2 (10:11→21:13)
[2020-09-25] MEDS: MULTIVITAMINS 5 ML ORAL LIQUID PO SCH (10:12)
[2020-09-25] MEDS: FAMOTIDINE 20 MG/2 ML INJ IV SCH (10:13)
--- NOTE | 2020-09-25 11:16 | XRay Report ---
ABDOMEN 1 VIEW 09/25/2020 10:07 AM INDICATION / CLINICAL INFORMATION: High residuals, not tolerating feeds. COMPARISON: 09/18/2020 FINDINGS: TUBES / LINES: There is a stable left groin central venous line with the tip projecting at expected l ocation of the inferior vena cava. There is a tube which projects over the right upper quadrant which may be a drain catheter. This may be external to the patient. Previously noted nasogastric tube is n o longer seen. BOWEL GAS PATTERN: There is a paucity of gas. The bowel gas pattern appears unchanged. FREE AIR / EXTRALUMINAL GAS: None. ADDITIONAL FINDINGS: No significant additional findings. IMPRESSION: 1. Nasogastric tube has been removed. There is an indeterminate tube which projects over the right up per quadrant which was not present previously. 2. No other significant change. Signer Name: Yunior Watkins MD Signed: 09/25/2020 11:12 AM Workstation Name: [id number]
--- NOTE | 2020-09-25 12:51 | Progress Note ---
Assessment and Plan 65 y/o male with out of hospital cardiac arrest now sedated on ativan for possible seizures. : PSV for the next 24 hours if tolerates. Restart feeds today at 10. Continue reglan. If tomorrow, same issues. Will change feeds, obtain GI consult. Continue antiepileptic therapy. 09/24/20: Continue Daily PSV, maybe ready for 24 hour trial. Antiepleptic therapy. Hold feeds today, suggest GI consult. Will discuss with Dietary on round tomorrow. 09/23/20: Daily PSV trials multiple times a day if needed. Antiepileptic ther apy. Resume tube feeds today. 09/22/20: PSV trial today as tolerated and every day from this day forward. NO sedation. Continue antiepileptic therapy. HD per renal. Still having issues with feeds. Will contact to see if he has any food allergies. Prognosis still remains very poor. WIll start some promotility agents as well. 09/21/20: Trach and peg today. Continue with vent weaning. Hopeful we can wean him off the vent once trached. Only place NH will cover is SNF. Prognosis remains very poor for recovery of functional state. 09/20/20: Placed consult to surgery now that COVID is negative. However, patient is morbidly obese and his surgery will likely be a complicated one especially with peg placement. Await surgery eval and recs. HD per renal. Continue daily PSV trials, mental status precludes extubation traditionally but maybe able to wean off vent with stable airway such as trach. NH has denied transfer and placement requests at this time based on CM notes. Prognosis is very poor, but after speaking with neurology and neurosurgery, patient wishes to continue aggressive measures. 09/19/20: Ordered repeat COVID as surgery will not do trach and peg until negative status. Continue supportive measures. 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 09/18/20: Unable to fit in MRI. Repeat CT showed improvement in edema but no clinical response is seen with this. Will continue Antiepileptic therapy. If wishes to proceed, will need trach and peg. Not sure if he would be candidate for PEG given his size but will ask surgery. Will need repeat COVID test prior to surgery. 09/15/20: Order MRI brain without contrast. Per surgery this will help to add more in regards to prognosis. Continue Valproic Acid and Keppra for seizure therapy. HD going now per renal. Overall prognosis remains guarded to poor. Please reach out to over the weekend to update her as I am not rounding this weekend, ,my partner will be covering. 09/14/20: Will load with valproic acid and then start to wean Diprovan. Spoke with today, very tearful on the phone. Explained to that Neurosurgery would come and eval denise but not a candidate for the other therapies she asked about since his edema is related to anoxic injury. Very very poor prognosis. 09/13/20: Per current neuro available, the neurologist from yesterday will call today. EEG is nonspecific but given CT of head findings consistent with anoxic encephalopathy, brain injury. As stated in neuro note, overall prognosis is very poor. Will continue to wean down diprovan to see if patient's seizures have been controlled with current Keppra dosing. Will call once she has spoken to neuro to get her thoughts on the next steps. (trach and peg, vs hospice as well as code status). Very very poor prognosis. 09/12/20: Long discussion with this am. Given recent head CT results, prognosis for full functional recovery is very POOR and neurology agrees. They will see in consult today. I have spoken to about AND and she is going to discuss with the family. The neurologist has stated they will reach out to the today. I am going to attempt to wean the ativan off and then start to wean the diprovan as long as no seizure activity is seen. Patient is now bradycardic, likely secondary to neuro state. I hope that he is not about to herniate. Patient is also like in Neurogenic DI given large urine out put volume. Very very poor prognosis. Continue supportive measures. 09/11/20: Will increase Keppra to 1500 BID given patient size. Continue Diprovan drip. Getting EEG today. HD per renal. Needs neurology consult however if patient is in status, needs to be transferred to an institution that can provide continuous EEG monitoring. Overll prognosis is very guarded to poor. Have not spoken to yet today. 09/10/20: Loaded with keppra and will start on Keppra BID. Needs EEG on therapy as well as OFF. If patient is in status, needs transfer to a location with continuous EEG capabilities. FiO2 has been weaned back down and is now at 60%, sats in the high 90's. HD per renal. Coags improving. Overall prognosis is guarded to poor. Spoke with on phone yesterday. Consult neurology tomorr ow as not available on the weekend. Suggest checking for antibodies as he may be a candidate for convalsescent plasma. Per the , he was diagnosed with COVID on and spent 6 days inpatient at the NH. Remains positive now with multisystem organ failure. Explained to that outcome may not be good but need more time to assess. 09/09/20: EEG ordered on yesterday but not done. If done not read. Continue diprovan for now until EEG can be done or interpreted. State Coags but given his oozing from his vascath, will give Vitamin K and FFP. Patient is covid positive so agree with steroids. Not a candidate for remdesivir. Need to check for antibodies, may be a candidate for convalescent plasma. HD per renal. Given improvement in pH will stop bicarb drip. Feed patient. 1. Stop sedation 2. EEG 3. Needs neuro consult. 4. Art line placement 5. Stat repeat of labs, if renal function is truly that bad, will need renal consult. 6. Follow up COVID testing 7. Likely needs echo 8. Will place on bicarb drip. CCT 31 minutes. Subjective Date of service: 09/25/20 Principal diagnosis: Abnormal LFTs, s/p cardiac arrest, acute kidney injury with ATN Interval history: Held tube feeds the last 24 hours. Checked KUB and read is weird but no mention of obstruction or obstructive pattern. Tolerating PSV as he did all day yesterday as well. Objective Vital Signs - 12hr 09/25/20 09/25/20 09/25/20 01:00 01:15 01:30 Temperature Pulse Rate 56 L 56 L 55 L Pulse Rate [ From Monitor] Respiratory 30 H 30 H 30 H Rate Blood Pressure 145/64 144/67 141/66 O2 Sat by Pulse 100 100 100 Oximetry O2 Sat by Pulse Oximetry [ Assessment] 09/25/20 09/25/20 09/25/20 01:45 02:00 02:15 Temperature Pulse Rate 55 L 54 L 57 L Pulse Rate [ From Monitor] Respiratory 30 H 30 H 30 H Rate Blood Pressure 145/67 138/66 154/69 O2 Sat by Pulse 100 100 100 Oximetry O2 Sat by Pulse Oximetry [ Assessment] 09/25/20 09/25/20 09/25/20 02:30 02:46 03:00 Temperature Pulse Rate 60 63 63 Pulse Rate [ From Monitor] Respiratory 30 H 30 H 26 H Rate Blood Pressure 159/79 159/79 135/66 O2 Sat by Pulse 100 100 Oximetry O2 Sat by Pulse Oximetry [ Assessment] 09/25/20 09/25/20 09/25/20 03:16 03:28 03:30 Temperature 97.4 F L Pulse Rate 63 61 Pulse Rate [ From Monitor] Respiratory 30 H 30 H Rate Blood Pressure 135/66 133/65 O2 Sat by Pulse 100 100 Oximetry O2 Sat by Pulse Oximetry [ Assessment] 09/25/20 09/25/20 09/25/20 03:46 04:00 04:16 Temperature Pulse Rate 57 L 55 L 56 L Pulse Rate [ 56 L From Monitor] Respiratory 30 H 30 H 30 H Rate Blood Pressure 159/79 131/65 131/65 O2 Sat by Pulse 100 100 100 Oximetry O2 Sat by Pulse Oximetry [ Assessment] 09/25/20 09/25/20 09/25/20 04:30 04:46 05:00 Temperature Pulse Rate 54 L 56 L 54 L Pulse Rate [ From Monitor] Respiratory 30 H 30 H 30 H Rate Blood Pressure 130/66 130/66 131/69 O2 Sat by Pulse 100 100 100 Oximetry O2 Sat by Pulse Oximetry [ Assessment] 09/25/20 09/25/20 09/25/20 05:16 05:24 05:30 Temperature Pulse Rate 54 L 56 L 55 L Pulse Rate [ From Monitor] Respiratory 30 H 25 H Rate Blood Pressure 131/69 131/69 136/73 O2 Sat by Pulse 100 100 Oximetry O2 Sat by Pulse Oximetry [ Assessment] 09/25/20 09/25/20 09/25/20 05:43 05:46 06:00 Temperature Pulse Rate 56 L 55 L 58 L Pulse Rate [ From Monitor] Respiratory 30 H 30 H Rate Blood Pressure 136/73 136/73 121/68 O2 Sat by Pulse 100 100 100 Oximetry O2 Sat by Pulse Oximetry [ Assessment] 09/25/20 09/25/20 09/25/20 06:16 06:30 06:46 Temperature Pulse Rate 58 L 56 L 57 L Pulse Rate [ From Monitor] Respiratory 30 H 30 H 30 H Rate Blood Pressure 121/68 118/67 118/67 O2 Sat by Pulse 100 100 100 Oximetry O2 Sat by Pulse Oximetry [ Assessment] 09/25/20 09/25/20 09/25/20 07:00 07:16 07:30 Temperature Pulse Rate 57 L 56 L 57 L Pulse Rate [ From Monitor] Respiratory 30 H 30 H 30 H Rate Blood Pressure 119/67 119/67 128/69 O2 Sat by Pulse 100 100 100 Oximetry O2 Sat by Pulse Oximetry [ Assessment] 09/25/20 09/25/20 09/25/20 07:44 07:46 08:00 Temperature 98.2 F Pulse Rate 57 L 56 L 63 Pulse Rate [ From Monitor] Respiratory 0 L 8 L Rate Blood Pressure 128/69 128/69 139/74 O2 Sat by Pulse 100 100 Oximetry O2 Sat by Pulse 100 Oximetry [ Assessment] 09/25/20 09/25/20 09/25/20 08:16 08:30 08:46 Temperature Pulse Rate 61 62 63 Pulse Rate [ From Monitor] Respiratory 0 L 0 L 0 L Rate Blood Pressure 139/74 143/78 143/78 O2 Sat by Pulse 100 100 100 Oximetry O2 Sat by Pulse Oximetry [ Assessment] 09/25/20 09/25/20 09/25/20 09:00 09:16 09:30 Temperature Pulse Rate 61 62 61 Pulse Rate [ From Monitor] Respiratory 27 H 17 0 L Rate Blood Pressure 144/76 144/76 145/75 O2 Sat by Pulse 100 100 100 Oximetry O2 Sat by Pulse Oximetry [ Assessment] 09/25/20 09/25/20 09/25/20 09:46 10:00 10:16 Temperature Pulse Rate 62 60 62 Pulse Rate [ From Monitor] Respiratory 0 L 24 12 Rate Blood Pressure 135/73 135/73 O2 Sat by Pulse 100 100 100 Oximetry O2 Sat by Pulse Oximetry [ Assessment] 09/25/20 09/25/20 09/25/20 10:30 10:46 11:00 Temperature Pulse Rate 60 58 L 59 L Pulse Rate [ From Monitor] Respiratory 30 H 30 H 30 H Rate Blood Pressure 137/67 137/67 142/65 O2 Sat by Pulse 100 Oximetry O2 Sat by Pulse Oximetry [ Assessment] 09/25/20 09/25/20 09/25/20 11:16 11:30 11:46 Temperature Pulse Rate 57 L 58 L 57 L Pulse Rate [ From Monitor] Respiratory 30 H 30 H 30 H Rate Blood Pressure 142/65 141/71 141/71 O2 Sat by Pulse 100 100 100 Oximetry O2 Sat by Pulse Oximetry [ Assessment] 09/25/20 12:00 Temperature 97.9 F Pulse Rate Pulse Rate [ From Monitor] Respiratory Rate Blood Pressure O2 Sat by Pulse Oximetry O2 Sat by Pulse Oximetry [ Assessment] Constitutional: comatose, other (morbidly obese) Eyes: non-icteric ENT: other (orally intubated and sedated) Neck: supple Effort: normal Ascultation: Bilateral: diminished breath sounds Percussion: Bilateral: not dull Cardiovascular: other (bradycardic) Gastrointestinal: soft CBC and BMP: 09/21/20 05:00 09/25/20 05:18 ABG, PT/INR, D-dimer: ABG ABG pH 7.442 (7.320-7.450) 09/14/20 03:54 POC ABG pCO2 42.3 mmHg (32.0-48.0) 09/14/20 03:54 ABG pCO2 33.4 mm Hg 09/11/20 05:40 POC ABG pO2 71.1 mmHg (83-108) L 09/14/20 03:54 ABG pO2 112.1 mm Hg (80.0-90.0) H 09/11/20 05:40 POC ABG HCO3 28.2 09/14/20 03:54 ABG O2 Saturation 98.4 % (95.0-99.0) 09/11/20 05:40 PT/INR, D-dimer PT 16.1 Sec. (12.2-14.9) H 09/12/20 04:00 INR 1.31 (0.87-1.13) H 09/12/20 04:00 D-Dimer 8315.85 ng/mlDDU (0-234) H 09/07/20 14:00 Abnormal lab findings: Abnormal Labs 09/07/20 09/07/20 09/07/20 13:08 14:00 14:00 WBC 15.7 H RBC Hgb 10.2 L Hct 32.5 L MCHC 31 L RDW 17.5 H Lymph % (Auto) [place] % (Auto) Lymph # (Auto) [place] # (Auto) Seg Neutrophils % Seg Neuts % (Manual) 72.0 H Lymphocytes % (Manual) Monocytes % (Manual) 8.0 H Nucleated RBC % Seg Neutrophils # Seg Neutrophils # Man 11.3 H Lymphocytes # (Manual) Monocytes # (Manual) 1.3 H PT INR D-Dimer 8315.85 H ABG pH POC ABG pCO2 POC ABG pO2 ABG pO2 ABG HCO3 ABG Base Excess ABG Hemoglobin ABG Oxyhemoglobin ABG Sodium ABG Potassium ABG Chloride ABG Glucose Carboxyhemoglobin Sodium Potassium Chloride Carbon Dioxide BUN Creatinine Glucose POC Glucose Lactic Acid Calcium Phosphorus Ferritin Total Bilirubin Direct Bilirubin AST ALT Lactate Dehydrogenase Total Creatine Kinase Troponin T Total Protein Albumin Triglycerides Arterial Blood Glucose Arterial Blood Ionized Calcium Urine pH 8.0 H Urine Creatinine Salicylates Acetaminophen Coronavirus (PCR) 09/07/20 09/07/20 09/07/20 14:00 14:00 14:00 WBC RBC Hgb Hct MCHC RDW Lymph % (Auto) [place] % (Auto) Lymph # (Auto) [place] # (Auto) Seg Neutrophils % Seg Neuts % (Manual) Lymphocytes % (Manual) Monocytes % (Manual) Nucleated RBC % Seg Neutrophils # Seg Neutrophils # Man Lymphocytes # (Manual) Monocytes # (Manual) PT INR D-Dimer ABG pH POC ABG pCO2 POC ABG pO2 ABG pO2 ABG HCO3 ABG Base Excess ABG Hemoglobin ABG Oxyhemoglobin ABG Sodium ABG Potassium ABG Chloride ABG Glucose Carboxyhemoglobin Sodium Potassium Chloride Carbon Dioxide BUN Creatinine Glucose POC Glucose Lactic Acid 4.30 H* Calcium Phosphorus Ferritin > 2000.0 H Total Bilirubin Direct Bilirubin AST ALT Lactate Dehydrogenase 882 H Total Creatine Kinase 477 H Troponin T 0.076 H Total Protein Albumin Triglycerides Arterial Blood Glucose Arterial Blood Ionized Calcium Urine pH Urine Creatinine Salicylates Acetaminophen Coronavirus (PCR) 09/07/20 09/07/20 09/07/20 14:00 14:00 14:00 WBC RBC Hgb Hct MCHC RDW Lymph % (Auto) [place] % (Auto) Lymph # (Auto) [place] # (Auto) Seg Neutrophils % Seg Neuts % (Manual) Lymphocytes % (Manual) Monocytes % (Manual) Nucleated RBC % Seg Neutrophils # Seg Neutrophils # Man Lymphocytes # (Manual) Monocytes # (Manual) PT INR D-Dimer ABG pH POC ABG pCO2 POC ABG pO2 ABG pO2 ABG HCO3 ABG Base Excess ABG Hemoglobin ABG Oxyhemoglobin ABG Sodium ABG Potassium ABG Chloride ABG Glucose Carboxyhemoglobin Sodium Potassium Chloride Carbon Dioxide BUN Creatinine 1.8 H Glucose POC Glucose Lactic Acid Calcium Phosphorus Ferritin Total Bilirubin Direct Bilirubin AST 310 H ALT 339 H Lactate Dehydrogenase Total Creatine Kinase Troponin T Total Protein Albumin 3.6 L Triglycerides Arterial Blood Glucose Arterial Blood Ionized Calcium Urine pH Urine Creatinine Salicylates < 0.3 L Acetaminophen 5.0 L Coronavirus (PCR) 09/07/20 09/08/20 09/08/20 14:26 04:00 04:17 WBC RBC Hgb Hct MCHC RDW Lymph % (Auto) [place] % (Auto) Lymph # (Auto) [place] # (Auto) Seg Neutrophils % Seg Neuts % (Manual) Lymphocytes % (Manual) Monocytes % (Manual) Nucleated RBC % Seg Neutrophils # Seg Neutrophils # Man Lymphocytes # (Manual) Monocytes # (Manual) PT INR D-Dimer ABG pH 7.037 L 7.095 L POC ABG pCO2 92.4 H 68.0 H POC ABG pO2 130.8 H 43.5 L ABG pO2 ABG HCO3 ABG Base Excess ABG Hemoglobin 11.3 L 10.6 L ABG Oxyhemoglobin 70.8 L ABG Sodium ABG Potassium 7.0 H ABG Chloride 108.0 H ABG Glucose Carboxyhemoglobin 0.3 L Sodium Potassium 8.4 H* D Chloride Carbon Dioxide 17 L D BUN 38 H Creatinine 3.9 H D Glucose POC Glucose Lactic Acid Calcium 7.7 L D Phosphorus Ferritin Total Bilirubin Direct Bilirubin AST ALT Lactate Dehydrogenase Total Creatine Kinase Troponin T Total Protein Albumin Triglycerides Arterial Blood Glucose Arterial Blood Ionized Calcium 4.5 L Urine pH Urine Creatinine Salicylates Acetaminophen Coronavirus (PCR) 09/08/20 09/08/20 09/08/20 05:00 05:25 12:02 WBC RBC Hgb Hct MCHC RDW Lymph % (Auto) [place] % (Auto) Lymph # (Auto) [place] # (Auto) Seg Neutrophils % Seg Neuts % (Manual) Lymphocytes % (Manual) Monocytes % (Manual) Nucleated RBC % Seg Neutrophils # Seg Neutrophils # Man Lymphocytes # (Manual) Monocytes # (Manual) PT INR D-Dimer ABG pH 7.088 L POC ABG pCO2 69.1 H POC ABG pO2 35.2 L ABG pO2 ABG HCO3 ABG Base Excess ABG Hemoglobin 10.9 L ABG Oxyhemoglobin 57.1 L ABG Sodium ABG Potassium 7.0 H ABG Chloride 108.0 H ABG Glucose Carboxyhemoglobin 0.4 L Sodium Potassium 8.1 H* Chloride Carbon Dioxide 17 L BUN 38 H Creatinine 3.7 H Glucose POC Glucose Lactic Acid Calcium 8.0 L Phosphorus 8.00 H Ferritin Total Bilirubin Direct Bilirubin 0.5 H AST 3696 H ALT 3331 H Lactate Dehydrogenase Total Creatine Kinase Troponin T Total Protein Albumin 3.5 L Triglycerides Arterial Blood Glucose Arterial Blood Ionized Calcium 4.4 L Urine pH Urine Creatinine Salicylates Acetaminophen Coronavirus (PCR) 09/08/20 09/08/20 09/08/20 16:31 22:36 Unknown WBC RBC Hgb Hct MCHC RDW Lymph % (Auto) [place] % (Auto) Lymph # (Auto) [place] # (Auto) Seg Neutrophils % Seg Neuts % (Manual) Lymphocytes % (Manual) Monocytes % (Manual) Nucleated RBC % Seg Neutrophils # Seg Neutrophils # Man Lymphocytes # (Manual) Monocytes # (Manual) PT INR D-Dimer ABG pH POC ABG pCO2 POC ABG pO2 ABG pO2 ABG HCO3 ABG Base Excess ABG Hemoglobin ABG Oxyhemoglobin ABG Sodium ABG Potassium ABG Chloride ABG Glucose Carboxyhemoglobin Sodium Potassium 5.3 H D Chloride Carbon Dioxide BUN Creatinine Glucose POC Glucose 158 H Lactic Acid Calcium Phosphorus Ferritin Total Bilirubin Direct Bilirubin AST ALT Lactate Dehydrogenase Total Creatine Kinase Troponin T Total Protein Albumin Triglycerides Arterial Blood Glucose Arterial Blood Ionized Calcium Urine pH Urine Creatinine Salicylates Acetaminophen Coronavirus (PCR) Positive A 09/08/20 09/08/20 09/08/20 Unknown Unknown Unknown WBC 18.4 H RBC Hgb 10.1 L Hct 32.0 L MCHC RDW 18.2 H Lymph % (Auto) [place] % (Auto) Lymph # (Auto) [place] # (Auto) Seg Neutrophils % Seg Neuts % (Manual) 81.0 H Lymphocytes % (Manual) 2.0 L Monocytes % (Manual) Nucleated RBC % 1.0 H Seg Neutrophils # Seg Neutrophils # Man 14.9 H Lymphocytes # (Manual) 0.4 L Monocytes # (Manual) 1.1 H PT 21.2 H INR 1.83 H D-Dimer ABG pH POC ABG pCO2 POC ABG pO2 ABG pO2 ABG HCO3 ABG Base Excess ABG Hemoglobin ABG Oxyhemoglobin ABG Sodium ABG Potassium ABG Chloride ABG Glucose Carboxyhemoglobin Sodium Potassium Chloride Carbon Dioxide BUN Creatinine Glucose POC Glucose Lactic Acid Calcium Phosphorus Ferritin Total Bilirubin Direct Bilirubin AST ALT Lactate Dehydrogenase Total Creatine Kinase Troponin T Total Protein Albumin Triglycerides Arterial Blood Glucose Arterial Blood Ionized Calcium Urine pH Urine Creatinine 182.4 H Salicylates Acetaminophen Coronavirus (PCR) 09/09/20 09/09/20 09/09/20 03:14 04:20 04:20 WBC 16.3 H RBC 3.12 L Hgb 8.6 L Hct 26.8 L MCHC RDW 18.2 H Lymph % (Auto) 6.3 L [place] % (Auto) 8.8 H Lymph # (Auto) 1.0 L [place] # (Auto) 1.4 H Seg Neutrophils % 84.5 H Seg Neuts % (Manual) Lymphocytes % (Manual) Monocytes % (Manual) Nucleated RBC % Seg Neutrophils # 13.7 H Seg Neutrophils # Man Lymphocytes # (Manual) Monocytes # (Manual) PT INR D-Dimer ABG pH POC ABG pCO2 POC ABG pO2 148.5 H ABG pO2 ABG HCO3 ABG Base Excess ABG Hemoglobin 9.4 L ABG Oxyhemoglobin 98.8 H ABG Sodium 134.8 L ABG Potassium 5.0 H ABG Chloride ABG Glucose 222 H Carboxyhemoglobin 0.1 L Sodium Potassium 5.2 H Chloride Carbon Dioxide BUN 47 H Creatinine 4.3 H Glucose 211 H POC Glucose Lactic Acid Calcium 7.4 L Phosphorus Ferritin Total Bilirubin [place] 07842 H ALT 6206 H Lactate Dehydrogenase Total Creatine Kinase Troponin T Total Protein 5.6 L Albumin 3.0 L Triglycerides Arterial Blood Glucose 222 H Arterial Blood Ionized Calcium 3.8 L Urine pH Urine Creatinine Salicylates Acetaminophen Coronavirus (PCR) 09/09/20 09/09/20 09/09/20 10:00 12:23 18:22 WBC RBC Hgb Hct MCHC RDW Lymph % (Auto) [place] % (Auto) Lymph # (Auto) [place] # (Auto) Seg Neutrophils % Seg Neuts % (Manual) Lymphocytes % (Manual) Monocytes % (Manual) Nucleated RBC % Seg Neutrophils # Seg Neutrophils # Man Lymphocytes # (Manual) Monocytes # (Manual) PT 21.7 H INR 1.90 H D-Dimer ABG pH POC ABG pCO2 POC ABG pO2 ABG pO2 ABG HCO3 ABG Base Excess ABG Hemoglobin ABG Oxyhemoglobin ABG Sodium ABG Potassium ABG Chloride ABG Glucose Carboxyhemoglobin Sodium Potassium Chloride Carbon Dioxide BUN Creatinine Glucose POC Glucose 216 H 211 H Lactic Acid Calcium Phosphorus Ferritin Total Bilirubin Direct Bilirubin AST ALT Lactate Dehydrogenase Total Creatine Kinase Troponin T Total Protein Albumin Triglycerides Arterial Blood Glucose Arterial Blood Ionized Calcium Urine pH Urine Creatinine Salicylates Acetaminophen Coronavirus (PCR) 09/10/20 09/10/20 09/10/20 04:00 04:05 04:05 WBC 15.0 H RBC 3.06 L Hgb 8.6 L Hct 25.8 L MCHC RDW 18.0 H Lymph % (Auto) [place] % (Auto) Lymph # (Auto) [place] # (Auto) Seg Neutrophils % Seg Neuts % (Manual) 86.0 H Lymphocytes % (Manual) 6.0 L Monocytes % (Manual) 8.0 H Nucleated RBC % Seg Neutrophils # Seg Neutrophils # Man 12.9 H Lymphocytes # (Manual) 0.9 L Monocytes # (Manual) 1.2 H PT 18.4 H INR 1.54 H D-Dimer ABG pH POC ABG pCO2 POC ABG pO2 ABG pO2 ABG HCO3 ABG Base Excess ABG Hemoglobin ABG Oxyhemoglobin ABG Sodium ABG Potassium ABG Chloride ABG Glucose Carboxyhemoglobin Sodium 134 L Potassium Chloride 93.7 L Carbon Dioxide BUN 46 H Creatinine 3.6 H Glucose 275 H POC Glucose Lactic Acid Calcium 7.7 L Phosphorus Ferritin Total Bilirubin 1.30 H Direct Bilirubin AST 5899 H ALT 6440 H Lactate Dehydrogenase Total Creatine Kinase Troponin T Total Protein 5.9 L Albumin 3.3 L Triglycerides Arterial Blood Glucose Arterial Blood Ionized Calcium Urine pH Urine Creatinine Salicylates Acetaminophen Coronavirus (PCR) 09/10/20 09/10/20 09/10/20 04:35 12:06 17:42 WBC RBC Hgb Hct MCHC RDW Lymph % (Auto) [place] % (Auto) Lymph # (Auto) [place] # (Auto) Seg Neutrophils % Seg Neuts % (Manual) Lymphocytes % (Manual) Monocytes % (Manual) Nucleated RBC % Seg Neutrophils # Seg Neutrophils # Man Lymphocytes # (Manual) Monocytes # (Manual) PT INR D-Dimer ABG pH 7.464 H POC ABG pCO2 POC ABG pO2 ABG pO2 ABG HCO3 ABG Base Excess ABG Hemoglobin 9.9 L ABG Oxyhemoglobin ABG Sodium 131.6 L ABG Potassium ABG Chloride 97.0 L ABG Glucose 281 H Carboxyhemoglobin 0.1 L Sodium Potassium Chloride Carbon Dioxide BUN Creatinine Glucose POC Glucose 298 H 340 H Lactic Acid Calcium Phosphorus Ferritin Total Bilirubin Direct Bilirubin AST ALT Lactate Dehydrogenase Total Creatine Kinase Troponin T Total Protein Albumin Triglycerides Arterial Blood Glucose 281 H Arterial Blood Ionized Calcium 3.9 L Urine pH Urine Creatinine Salicylates Acetaminophen Coronavirus (PCR) 09/10/20 09/11/20 09/11/20 23:07 04:44 05:17 WBC RBC Hgb Hct MCHC RDW Lymph % (Auto) [place] % (Auto) Lymph # (Auto) [place] # (Auto) Seg Neutrophils % Seg Neuts % (Manual) Lymphocytes % (Manual) Monocytes % (Manual) Nucleated RBC % Seg Neutrophils # Seg Neutrophils # Man Lymphocytes # (Manual) Monocytes # (Manual) PT 16.9 H INR 1.39 H D-Dimer ABG pH POC ABG pCO2 POC ABG pO2 ABG pO2 ABG HCO3 ABG Base Excess ABG Hemoglobin ABG Oxyhemoglobin ABG Sodium ABG Potassium ABG Chloride ABG Glucose Carboxyhemoglobin Sodium Potassium Chloride Carbon Dioxide BUN Creatinine Glucose POC Glucose 367 H 416 H Lactic Acid Calcium Phosphorus Ferritin Total Bilirubin Direct Bilirubin AST ALT Lactate Dehydrogenase Total Creatine Kinase Troponin T Total Protein Albumin Triglycerides Arterial Blood Glucose Arterial Blood Ionized Calcium Urine pH Urine Creatinine Salicylates Acetaminophen Coronavirus (PCR) 09/11/20 09/11/20 09/11/20 05:40 12:01 17:50 WBC RBC Hgb Hct MCHC RDW Lymph % (Auto) [place] % (Auto) Lymph # (Auto) [place] # (Auto) Seg Neutrophils % Seg Neuts % (Manual) Lymphocytes % (Manual) Monocytes % (Manual) Nucleated RBC % Seg Neutrophils # Seg Neutrophils # Man Lymphocytes # (Manual) Monocytes # (Manual) PT INR D-Dimer ABG pH 7.543 H POC ABG pCO2 POC ABG pO2 ABG pO2 112.1 H ABG HCO3 28.1 H ABG Base Excess 5.4 H ABG Hemoglobin 8.4 L ABG Oxyhemoglobin ABG Sodium ABG Potassium ABG Chloride ABG Glucose Carboxyhemoglobin Sodium Potassium Chloride Carbon Dioxide BUN Creatinine Glucose POC Glucose 418 H 404 H Lactic Acid Calcium Phosphorus Ferritin Total Bilirubin Direct Bilirubin AST ALT Lactate Dehydrogenase Total Creatine Kinase Troponin T Total Protein Albumin Triglycerides Arterial Blood Glucose Arterial Blood Ionized Calcium Urine pH Urine Creatinine Salicylates Acetaminophen Coronavirus (PCR) 09/11/20 09/11/20 09/12/20 23:10 23:43 03:15 WBC RBC Hgb Hct MCHC RDW Lymph % (Auto) [place] % (Auto) Lymph # (Auto) [place] # (Auto) Seg Neutrophils % Seg Neuts % (Manual) Lymphocytes % (Manual) Monocytes % (Manual) Nucleated RBC % Seg Neutrophils # Seg Neutrophils # Man Lymphocytes # (Manual) Monocytes # (Manual) PT INR D-Dimer ABG pH POC ABG pCO2 POC ABG pO2 ABG pO2 ABG HCO3 ABG Base Excess ABG Hemoglobin ABG Oxyhemoglobin ABG Sodium ABG Potassium ABG Chloride ABG Glucose Carboxyhemoglobin Sodium 135 L Potassium Chloride 92.3 L Carbon Dioxide BUN 62 H Creatinine 3.7 H Glucose 406 H POC Glucose 372 H 359 H Lactic Acid Calcium Phosphorus Ferritin Total Bilirubin Direct Bilirubin AST 687 H ALT 3701 H Lactate Dehydrogenase Total Creatine Kinase Troponin T Total Protein 5.8 L Albumin 3.1 L Triglycerides Arterial Blood Glucose Arterial Blood Ionized Calcium Urine pH Urine Creatinine Salicylates Acetaminophen Coronavirus (PCR) 09/12/20 09/12/20 09/12/20 03:18 04:00 04:00 WBC 13.7 H RBC 3.30 L Hgb 9.3 L Hct 27.6 L MCHC RDW 17.5 H Lymph % (Auto) [place] % (Auto) Lymph # (Auto) [place] # (Auto) Seg Neutrophils % Seg Neuts % (Manual) 76.0 H Lymphocytes % (Manual) 11.0 L Monocytes % (Manual) 13.0 H Nucleated RBC % Seg Neutrophils # Seg Neutrophils # Man 10.4 H Lymphocytes # (Manual) Monocytes # (Manual) 1.8 H PT 16.1 H INR 1.31 H D-Dimer ABG pH 7.558 H POC ABG pCO2 POC ABG pO2 74.7 L ABG pO2 ABG HCO3 ABG Base Excess ABG Hemoglobin 9.7 L ABG Oxyhemoglobin ABG Sodium 132.4 L ABG Potassium ABG Chloride 95.0 L ABG Glucose 437 H Carboxyhemoglobin Sodium Potassium Chloride Carbon Dioxide BUN Creatinine Glucose POC Glucose Lactic Acid Calcium Phosphorus Ferritin Total Bilirubin Direct Bilirubin AST ALT Lactate Dehydrogenase Total Creatine Kinase Troponin T Total Protein Albumin Triglycerides Arterial Blood Glucose 437 H Arterial Blood Ionized Calcium 4.3 L Urine pH Urine Creatinine Salicylates Acetaminophen Coronavirus (PCR) 09/12/20 09/12/20 09/12/20 04:21 05:20 06:37 WBC RBC Hgb Hct MCHC RDW Lymph % (Auto) [place] % (Auto) Lymph # (Auto) [place] # (Auto) Seg Neutrophils % Seg Neuts % (Manual) Lymphocytes % (Manual) Monocytes % (Manual) Nucleated RBC % Seg Neutrophils # Seg Neutrophils # Man Lymphocytes # (Manual) Monocytes # (Manual) PT INR D-Dimer ABG pH POC ABG pCO2 POC ABG pO2 ABG pO2 ABG HCO3 ABG Base Excess ABG Hemoglobin ABG Oxyhemoglobin ABG Sodium ABG Potassium ABG Chloride ABG Glucose Carboxyhemoglobin Sodium Potassium Chloride Carbon Dioxide BUN Creatinine Glucose POC Glucose 417 H 397 H 370 H Lactic Acid Calcium Phosphorus Ferritin Total Bilirubin Direct Bilirubin AST ALT Lactate Dehydrogenase Total Creatine Kinase Troponin T Total Protein Albumin Triglycerides Arterial Blood Glucose Arterial Blood Ionized Calcium Urine pH Urine Creatinine Salicylates Acetaminophen Coronavirus (PCR) 09/12/20 09/12/20 09/12/20 11:56 17:14 21:52 WBC RBC Hgb Hct MCHC RDW Lymph % (Auto) [place] % (Auto) Lymph # (Auto) [place] # (Auto) Seg Neutrophils % Seg Neuts % (Manual) Lymphocytes % (Manual) Monocytes % (Manual) Nucleated RBC % Seg Neutrophils # Seg Neutrophils # Man Lymphocytes # (Manual) Monocytes # (Manual) PT INR D-Dimer ABG pH POC ABG pCO2 POC ABG pO2 ABG pO2 ABG HCO3 ABG Base Excess ABG Hemoglobin ABG Oxyhemoglobin ABG Sodium ABG Potassium ABG Chloride ABG Glucose Carboxyhemoglobin Sodium Potassium Chloride Carbon Dioxide BUN Creatinine Glucose POC Glucose 341 H 325 H 285 H Lactic Acid Calcium Phosphorus Ferritin Total Bilirubin Direct Bilirubin AST ALT Lactate Dehydrogenase Total Creatine Kinase Troponin T Total Protein Albumin Triglycerides Arterial Blood Glucose Arterial Blood Ionized Calcium Urine pH Urine Creatinine Salicylates Acetaminophen Coronavirus (PCR) 09/12/20 09/12/20 09/12/20 23:39 Unknown Unknown WBC RBC Hgb Hct MCHC RDW Lymph % (Auto) [place] % (Auto) Lymph # (Auto) [place] # (Auto) Seg Neutrophils % Seg Neuts % (Manual) Lymphocytes % (Manual) Monocytes % (Manual) Nucleated RBC % Seg Neutrophils # Seg Neutrophils # Man Lymphocytes # (Manual) Monocytes # (Manual) PT INR D-Dimer ABG pH POC ABG pCO2 POC ABG pO2 ABG pO2 ABG HCO3 ABG Base Excess ABG Hemoglobin ABG Oxyhemoglobin ABG Sodium ABG Potassium ABG Chloride ABG Glucose Carboxyhemoglobin Sodium 135 L Potassium Chloride 92.2 L Carbon Dioxide BUN 65 H Creatinine 3.5 H Glucose 418 H POC Glucose 338 H Lactic Acid Calcium Phosphorus Ferritin Total Bilirubin Direct Bilirubin AST 553 H ALT 3453 H Lactate Dehydrogenase Total Creatine Kinase Troponin T Total Protein 5.9 L Albumin 3.0 L Triglycerides 220 H Arterial Blood Glucose Arterial Blood Ionized Calcium Urine pH Urine Creatinine Salicylates Acetaminophen Coronavirus (PCR) 09/13/20 09/13/20 09/13/20 04:47 05:24 10:50 WBC RBC Hgb Hct MCHC RDW Lymph % (Auto) [place] % (Auto) Lymph # (Auto) [place] # (Auto) Seg Neutrophils % Seg Neuts % (Manual) Lymphocytes % (Manual) Monocytes % (Manual) Nucleated RBC % Seg Neutrophils # Seg Neutrophils # Man Lymphocytes # (Manual) Monocytes # (Manual) PT INR D-Dimer ABG pH 7.571 H POC ABG pCO2 POC ABG pO2 69.0 L ABG pO2 ABG HCO3 ABG Base Excess ABG Hemoglobin 10.1 L ABG Oxyhemoglobin 93.2 L ABG Sodium 134.0 L ABG Potassium ABG Chloride ABG Glucose 365 H Carboxyhemoglobin 0.4 L Sodium Potassium Chloride 96.6 L Carbon Dioxide 32 H BUN 76 H Creatinine 3.1 H Glucose 395 H POC Glucose 329 H Lactic Acid Calcium Phosphorus Ferritin Total Bilirubin Direct Bilirubin AST ALT Lactate Dehydrogenase Total Creatine Kinase Troponin T Total Protein Albumin Triglycerides Arterial Blood Glucose 365 H Arterial Blood Ionized Calcium Urine pH Urine Creatinine Salicylates Acetaminophen Coronavirus (PCR) 09/13/20 09/13/20 09/13/20 11:39 17:48 23:35 WBC RBC Hgb Hct MCHC RDW Lymph % (Auto) [place] % (Auto) Lymph # (Auto) [place] # (Auto) Seg Neutrophils % Seg Neuts % (Manual) Lymphocytes % (Manual) Monocytes % (Manual) Nucleated RBC % Seg Neutrophils # Seg Neutrophils # Man Lymphocytes # (Manual) Monocytes # (Manual) PT INR D-Dimer ABG pH POC ABG pCO2 POC ABG pO2 ABG pO2 ABG HCO3 ABG Base Excess ABG Hemoglobin ABG Oxyhemoglobin ABG Sodium ABG Potassium ABG Chloride ABG Glucose Carboxyhemoglobin Sodium Potassium Chloride Carbon Dioxide BUN Creatinine Glucose POC Glucose 344 H 286 H 223 H Lactic Acid Calcium Phosphorus Ferritin Total Bilirubin Direct Bilirubin AST ALT Lactate Dehydrogenase Total Creatine Kinase Troponin T Total Protein Albumin Triglycerides Arterial Blood Glucose Arterial Blood Ionized Calcium Urine pH Urine Creatinine Salicylates Acetaminophen Coronavirus (PCR) 09/14/20 09/14/20 09/14/20 03:54 05:34 10:27 WBC RBC Hgb Hct MCHC RDW Lymph % (Auto) [place] % (Auto) Lymph # (Auto) [place] # (Auto) Seg Neutrophils % Seg Neuts % (Manual) Lymphocytes % (Manual) Monocytes % (Manual) Nucleated RBC % Seg Neutrophils # Seg Neutrophils # Man Lymphocytes # (Manual) Monocytes # (Manual) PT INR D-Dimer ABG pH POC ABG pCO2 POC ABG pO2 71.1 L ABG pO2 ABG HCO3 ABG Base Excess ABG Hemoglobin 10.3 L ABG Oxyhemoglobin ABG Sodium 135.2 L ABG Potassium ABG Chloride ABG Glucose 281 H Carboxyhemoglobin Sodium Potassium Chloride 96.6 L Carbon Dioxide BUN 100 H Creatinine 3.9 H Glucose 286 H POC Glucose 252 H Lactic Acid Calcium Phosphorus Ferritin Total Bilirubin Direct Bilirubin AST 145 H ALT 1400 H Lactate Dehydrogenase Total Creatine Kinase Troponin T Total Protein 5.6 L Albumin 2.9 L Triglycerides Arterial Blood Glucose 281 H Arterial Blood Ionized Calcium Urine pH Urine Creatinine Salicylates Acetaminophen Coronavirus (PCR) 09/14/20 09/14/20 09/14/20 11:38 17:52 23:07 WBC RBC Hgb Hct MCHC RDW Lymph % (Auto) [place] % (Auto) Lymph # (Auto) [place] # (Auto) Seg Neutrophils % Seg Neuts % (Manual) Lymphocytes % (Manual) Monocytes % (Manual) Nucleated RBC % Seg Neutrophils # Seg Neutrophils # Man Lymphocytes # (Manual) Monocytes # (Manual) PT INR D-Dimer ABG pH POC ABG pCO2 POC ABG pO2 ABG pO2 ABG HCO3 ABG Base Excess ABG Hemoglobin ABG Oxyhemoglobin ABG Sodium ABG Potassium ABG Chloride ABG Glucose Carboxyhemoglobin Sodium Potassium Chloride Carbon Dioxide BUN Creatinine Glucose POC Glucose 247 H 247 H 256 H Lactic Acid Calcium Phosphorus Ferritin Total Bilirubin Direct Bilirubin AST ALT Lactate Dehydrogenase Total Creatine Kinase Troponin T Total Protein Albumin Triglycerides Arterial Blood Glucose Arterial Blood Ionized Calcium Urine pH Urine Creatinine Salicylates Acetaminophen Coronavirus (PCR) 09/15/20 09/15/20 09/15/20 04:54 11:24 17:48 WBC RBC Hgb Hct MCHC RDW Lymph % (Auto) [place] % (Auto) Lymph # (Auto) [place] # (Auto) Seg Neutrophils % Seg Neuts % (Manual) Lymphocytes % (Manual) Monocytes % (Manual) Nucleated RBC % Seg Neutrophils # Seg Neutrophils # Man Lymphocytes # (Manual) Monocytes # (Manual) PT INR D-Dimer ABG pH POC ABG pCO2 POC ABG pO2 ABG pO2 ABG HCO3 ABG Base Excess ABG Hemoglobin ABG Oxyhemoglobin ABG Sodium ABG Potassium ABG Chloride ABG Glucose Carboxyhemoglobin Sodium Potassium Chloride Carbon Dioxide BUN Creatinine Glucose POC Glucose 271 H 228 H 254 H Lactic Acid Calcium Phosphorus Ferritin Total Bilirubin Direct Bilirubin AST ALT Lactate Dehydrogenase Total Creatine Kinase Troponin T Total Protein Albumin Triglycerides Arterial Blood Glucose Arterial Blood Ionized Calcium Urine pH Urine Creatinine Salicylates Acetaminophen Coronavirus (PCR) 09/15/20 09/15/20 09/15/20 19:20 19:20 23:13 WBC 27.3 H RBC 3.16 L Hgb 8.8 L Hct 27.0 L MCHC RDW 19.7 H Lymph % (Auto) [place] % (Auto) Lymph # (Auto) [place] # (Auto) Seg Neutrophils % Seg Neuts % (Manual) 81.0 H Lymphocytes % (Manual) 9.0 L Monocytes % (Manual) 10.0 H Nucleated RBC % Seg Neutrophils # Seg Neutrophils # Man 22.1 H Lymphocytes # (Manual) Monocytes # (Manual) 2.7 H PT INR D-Dimer ABG pH POC ABG pCO2 POC ABG pO2 ABG pO2 ABG HCO3 ABG Base Excess ABG Hemoglobin ABG Oxyhemoglobin ABG Sodium ABG Potassium ABG Chloride ABG Glucose Carboxyhemoglobin Sodium Potassium Chloride Carbon Dioxide BUN 68 H Creatinine 2.8 H Glucose 288 H POC Glucose 259 H Lactic Acid Calcium Phosphorus Ferritin Total Bilirubin Direct Bilirubin AST ALT Lactate Dehydrogenase Total Creatine Kinase Troponin T Total Protein Albumin Triglycerides Arterial Blood Glucose Arterial Blood Ionized Calcium Urine pH Urine Creatinine Salicylates Acetaminophen Coronavirus (PCR) 09/16/20 09/16/20 09/16/20 05:27 09:40 11:48 WBC RBC Hgb Hct MCHC RDW Lymph % (Auto) [place] % (Auto) Lymph # (Auto) [place] # (Auto) Seg Neutrophils % Seg Neuts % (Manual) Lymphocytes % (Manual) Monocytes % (Manual) Nucleated RBC % Seg Neutrophils # Seg Neutrophils # Man Lymphocytes # (Manual) Monocytes # (Manual) PT INR D-Dimer ABG pH POC ABG pCO2 POC ABG pO2 ABG pO2 ABG HCO3 ABG Base Excess ABG Hemoglobin ABG Oxyhemoglobin ABG Sodium ABG Potassium ABG Chloride ABG Glucose Carboxyhemoglobin Sodium Potassium Chloride Carbon Dioxide 31 H BUN 77 H Creatinine 2.9 H Glucose 250 H POC Glucose 275 H 234 H Lactic Acid Calcium Phosphorus Ferritin Total Bilirubin Direct Bilirubin AST ALT Lactate Dehydrogenase Total Creatine Kinase Troponin T Total Protein Albumin Triglycerides Arterial Blood Glucose Arterial Blood Ionized Calcium Urine pH Urine Creatinine Salicylates Acetaminophen Coronavirus (PCR) 09/16/20 09/16/20 09/17/20 17:40 23:23 00:01 WBC RBC Hgb Hct MCHC RDW Lymph % (Auto) [place] % (Auto) Lymph # (Auto) [place] # (Auto) Seg Neutrophils % Seg Neuts % (Manual) Lymphocytes % (Manual) Monocytes % (Manual) Nucleated RBC % Seg Neutrophils # Seg Neutrophils # Man Lymphocytes # (Manual) Monocytes # (Manual) PT INR D-Dimer ABG pH POC ABG pCO2 POC ABG pO2 ABG pO2 ABG HCO3 ABG Base Excess ABG Hemoglobin ABG Oxyhemoglobin ABG Sodium ABG Potassium ABG Chloride ABG Glucose Carboxyhemoglobin Sodium Potassium Chloride Carbon Dioxide BUN Creatinine Glucose POC Glucose 172 H 161 H Lactic Acid 2.10 H* Calcium Phosphorus Ferritin Total Bilirubin Direct Bilirubin AST ALT Lactate Dehydrogenase Total Creatine Kinase Troponin T Total Protein Albumin Triglycerides Arterial Blood Glucose Arterial Blood Ionized Calcium Urine pH Urine Creatinine Salicylates Acetaminophen Coronavirus (PCR) 09/17/20 09/17/20 09/17/20 04:00 04:00 05:09 WBC 19.5 H RBC 3.03 L Hgb 8.6 L Hct 26.3 L MCHC RDW 19.4 H Lymph % (Auto) 8.7 L [place] % (Auto) 13.7 H Lymph # (Auto) [place] # (Auto) 2.7 H Seg Neutrophils % 76.9 H Seg Neuts % (Manual) Lymphocytes % (Manual) Monocytes % (Manual) Nucleated RBC % Seg Neutrophils # 15.0 H Seg Neutrophils # Man Lymphocytes # (Manual) Monocytes # (Manual) PT INR D-Dimer ABG pH POC ABG pCO2 POC ABG pO2 ABG pO2 ABG HCO3 ABG Base Excess ABG Hemoglobin ABG Oxyhemoglobin ABG Sodium ABG Potassium ABG Chloride ABG Glucose Carboxyhemoglobin Sodium 146 H Potassium 3.1 L Chloride Carbon Dioxide BUN 79 H Creatinine 2.6 H Glucose 122 H POC Glucose 116 H Lactic Acid Calcium Phosphorus Ferritin Total Bilirubin Direct Bilirubin AST 64 H ALT 516 H Lactate Dehydrogenase Total Creatine Kinase Troponin T Total Protein 5.7 L Albumin 2.8 L Triglycerides Arterial Blood Glucose Arterial Blood Ionized Calcium Urine pH Urine Creatinine Salicylates Acetaminophen Coronavirus (PCR) 09/17/20 09/17/20 09/18/20 13:52 17:38 05:16 WBC RBC Hgb Hct MCHC RDW Lymph % (Auto) [place] % (Auto) Lymph # (Auto) [place] # (Auto) Seg Neutrophils % Seg Neuts % (Manual) Lymphocytes % (Manual) Monocytes % (Manual) Nucleated RBC % Seg Neutrophils # Seg Neutrophils # Man Lymphocytes # (Manual) Monocytes # (Manual) PT INR D-Dimer ABG pH POC ABG pCO2 POC ABG pO2 ABG pO2 ABG HCO3 ABG Base Excess ABG Hemoglobin ABG Oxyhemoglobin ABG Sodium ABG Potassium ABG Chloride ABG Glucose Carboxyhemoglobin Sodium Potassium Chloride Carbon Dioxide BUN Creatinine Glucose POC Glucose 68 L 126 H Lactic Acid 2.90 H* Calcium Phosphorus Ferritin Total Bilirubin Direct Bilirubin AST ALT Lactate Dehydrogenase Total Creatine Kinase Troponin T Total Protein Albumin Triglycerides Arterial Blood Glucose Arterial Blood Ionized Calcium Urine pH Urine Creatinine Salicylates Acetaminophen Coronavirus (PCR) 09/18/20 09/18/20 09/18/20 05:30 05:30 11:42 WBC 18.2 H RBC 3.18 L Hgb 9.0 L Hct 27.2 L MCHC RDW 18.8 H Lymph % (Auto) [place] % (Auto) Lymph # (Auto) [place] # (Auto) Seg Neutrophils % Seg Neuts % (Manual) Lymphocytes % (Manual) Monocytes % (Manual) Nucleated RBC % Seg Neutrophils # Seg Neutrophils # Man Lymphocytes # (Manual) Monocytes # (Manual) PT INR D-Dimer ABG pH POC ABG pCO2 POC ABG pO2 ABG pO2 ABG HCO3 ABG Base Excess ABG Hemoglobin ABG Oxyhemoglobin ABG Sodium ABG Potassium ABG Chloride ABG Glucose Carboxyhemoglobin Sodium Potassium 3.1 L Chloride Carbon Dioxide BUN 73 H Creatinine 2.6 H Glucose 154 H POC Glucose 140 H Lactic Acid Calcium Phosphorus Ferritin Total Bilirubin Direct Bilirubin AST ALT Lactate Dehydrogenase Total Creatine Kinase Troponin T Total Protein Albumin Triglycerides Arterial Blood Glucose Arterial Blood Ionized Calcium Urine pH Urine Creatinine Salicylates Acetaminophen Coronavirus (PCR) 09/18/20 09/18/20 09/19/20 18:15 23:37 05:13 WBC 22.8 H RBC 3.30 L Hgb 9.2 L Hct 28.1 L MCHC RDW 18.2 H Lymph % (Auto) [place] % (Auto) Lymph # (Auto) [place] # (Auto) Seg Neutrophils % Seg Neuts % (Manual) 87.0 H Lymphocytes % (Manual) 5.0 L Monocytes % (Manual) Nucleated RBC % Seg Neutrophils # Seg Neutrophils # Man 19.8 H Lymphocytes # (Manual) 1.1 L Monocytes # (Manual) 1.6 H PT INR D-Dimer ABG pH POC ABG pCO2 POC ABG pO2 ABG pO2 ABG HCO3 ABG Base Excess ABG Hemoglobin ABG Oxyhemoglobin ABG Sodium ABG Potassium ABG Chloride ABG Glucose Carboxyhemoglobin Sodium Potassium Chloride Carbon Dioxide BUN Creatinine Glucose POC Glucose 149 H 153 H Lactic Acid Calcium Phosphorus Ferritin Total Bilirubin Direct Bilirubin AST ALT Lactate Dehydrogenase Total Creatine Kinase Troponin T Total Protein Albumin Triglycerides Arterial Blood Glucose Arterial Blood Ionized Calcium Urine pH Urine Creatinine Salicylates Acetaminophen Coronavirus (PCR) 09/19/20 09/19/20 09/19/20 05:13 05:25 11:56 WBC RBC Hgb Hct MCHC RDW Lymph % (Auto) [place] % (Auto) Lymph # (Auto) [place] # (Auto) Seg Neutrophils % Seg Neuts % (Manual) Lymphocytes % (Manual) Monocytes % (Manual) Nucleated RBC % Seg Neutrophils # Seg Neutrophils # Man Lymphocytes # (Manual) Monocytes # (Manual) PT INR D-Dimer ABG pH POC ABG pCO2 POC ABG pO2 ABG pO2 ABG HCO3 ABG Base Excess ABG Hemoglobin ABG Oxyhemoglobin ABG Sodium ABG Potassium ABG Chloride ABG Glucose Carboxyhemoglobin Sodium Potassium Chloride Carbon Dioxide BUN 55 H Creatinine 2.3 H Glucose 196 H POC Glucose 168 H 137 H Lactic Acid Calcium Phosphorus Ferritin Total Bilirubin Direct Bilirubin AST ALT Lactate Dehydrogenase Total Creatine Kinase Troponin T Total Protein Albumin Triglycerides Arterial Blood Glucose Arterial Blood Ionized Calcium Urine pH Urine Creatinine Salicylates Acetaminophen Coronavirus (PCR) 09/19/20 09/19/20 09/20/20 17:43 23:43 05:02 WBC RBC Hgb Hct MCHC RDW Lymph % (Auto) [place] % (Auto) Lymph # (Auto) [place] # (Auto) Seg Neutrophils % Seg Neuts % (Manual) Lymphocytes % (Manual) Monocytes % (Manual) Nucleated RBC % Seg Neutrophils # Seg Neutrophils # Man Lymphocytes # (Manual) Monocytes # (Manual) PT INR D-Dimer ABG pH POC ABG pCO2 POC ABG pO2 ABG pO2 ABG HCO3 ABG Base Excess ABG Hemoglobin ABG Oxyhemoglobin ABG Sodium ABG Potassium ABG Chloride ABG Glucose Carboxyhemoglobin Sodium Potassium Chloride Carbon Dioxide BUN Creatinine Glucose POC Glucose 114 H 136 H 163 H Lactic Acid Calcium Phosphorus Ferritin Total Bilirubin Direct Bilirubin AST ALT Lactate Dehydrogenase Total Creatine Kinase Troponin T Total Protein Albumin Triglycerides Arterial Blood Glucose Arterial Blood Ionized Calcium Urine pH Urine Creatinine Salicylates Acetaminophen Coronavirus (PCR) 09/20/20 09/20/20 09/20/20 05:36 05:36 11:10 WBC 20.1 H RBC 3.07 L Hgb 8.5 L Hct 26.4 L MCHC RDW 18.6 H Lymph % (Auto) 9.6 L [place] % (Auto) 9.6 H Lymph # (Auto) [place] # (Auto) 1.9 H Seg Neutrophils % 79.0 H Seg Neuts % (Manual) Lymphocytes % (Manual) Monocytes % (Manual) Nucleated RBC % Seg Neutrophils # 15.9 H Seg Neutrophils # Man Lymphocytes # (Manual) Monocytes # (Manual) PT INR D-Dimer ABG pH POC ABG pCO2 POC ABG pO2 ABG pO2 ABG HCO3 ABG Base Excess ABG Hemoglobin ABG Oxyhemoglobin ABG Sodium ABG Potassium ABG Chloride ABG Glucose Carboxyhemoglobin Sodium Potassium 3.3 L Chloride Carbon Dioxide BUN 76 H Creatinine 3.6 H D Glucose 213 H POC Glucose 167 H Lactic Acid Calcium Phosphorus Ferritin Total Bilirubin Direct Bilirubin AST ALT Lactate Dehydrogenase Total Creatine Kinase Troponin T Total Protein Albumin Triglycerides Arterial Blood Glucose Arterial Blood Ionized Calcium Urine pH Urine Creatinine Salicylates Acetaminophen Coronavirus (PCR) 09/20/20 09/20/20 09/20/20 14:02 17:24 23:30 WBC RBC Hgb Hct MCHC RDW Lymph % (Auto) [place] % (Auto) Lymph # (Auto) [place] # (Auto) Seg Neutrophils % Seg Neuts % (Manual) Lymphocytes % (Manual) Monocytes % (Manual) Nucleated RBC % Seg Neutrophils # Seg Neutrophils # Man Lymphocytes # (Manual) Monocytes # (Manual) PT INR D-Dimer ABG pH POC ABG pCO2 POC ABG pO2 ABG pO2 ABG HCO3 ABG Base Excess ABG Hemoglobin ABG Oxyhemoglobin ABG Sodium ABG Potassium ABG Chloride ABG Glucose Carboxyhemoglobin Sodium Potassium Chloride Carbon Dioxide BUN Creatinine Glucose POC Glucose 164 H 146 H 147 H Lactic Acid Calcium Phosphorus Ferritin Total Bilirubin Direct Bilirubin AST ALT Lactate Dehydrogenase Total Creatine Kinase Troponin T Total Protein Albumin Triglycerides Arterial Blood Glucose Arterial Blood Ionized Calcium Urine pH Urine Creatinine Salicylates Acetaminophen Coronavirus (PCR) 09/21/20 09/21/20 09/21/20 05:00 05:00 05:24 WBC 17.4 H RBC 2.95 L Hgb 8.3 L Hct 25.8 L MCHC RDW 19.3 H Lymph % (Auto) 11.1 L [place] % (Auto) 11.1 H Lymph # (Auto) [place] # (Auto) 1.9 H Seg Neutrophils % 75.9 H Seg Neuts % (Manual) Lymphocytes % (Manual) Monocytes % (Manual) Nucleated RBC % Seg Neutrophils # 13.2 H Seg Neutrophils # Man Lymphocytes # (Manual) Monocytes # (Manual) PT INR D-Dimer ABG pH POC ABG pCO2 POC ABG pO2 ABG pO2 ABG HCO3 ABG Base Excess ABG Hemoglobin ABG Oxyhemoglobin ABG Sodium ABG Potassium ABG Chloride ABG Glucose Carboxyhemoglobin Sodium Potassium Chloride Carbon Dioxide BUN 60 H Creatinine 3.5 H Glucose 185 H POC Glucose 139 H Lactic Acid Calcium Phosphorus Ferritin Total Bilirubin Direct Bilirubin AST ALT Lactate Dehydrogenase Total Creatine Kinase Troponin T Total Protein Albumin Triglycerides Arterial Blood Glucose Arterial Blood Ionized Calcium Urine pH Urine Creatinine Salicylates Acetaminophen Coronavirus (PCR) 09/21/20 09/21/20 09/21/20 11:59 17:59 23:32 WBC RBC Hgb Hct MCHC RDW Lymph % (Auto) [place] % (Auto) Lymph # (Auto) [place] # (Auto) Seg Neutrophils % Seg Neuts % (Manual) Lymphocytes % (Manual) Monocytes % (Manual) Nucleated RBC % Seg Neutrophils # Seg Neutrophils # Man Lymphocytes # (Manual) Monocytes # (Manual) PT INR D-Dimer ABG pH POC ABG pCO2 POC ABG pO2 ABG pO2 ABG HCO3 ABG Base Excess ABG Hemoglobin ABG Oxyhemoglobin ABG Sodium ABG Potassium ABG Chloride ABG Glucose Carboxyhemoglobin Sodium Potassium Chloride Carbon Dioxide BUN Creatinine Glucose POC Glucose 183 H 141 H 162 H Lactic Acid Calcium Phosphorus Ferritin Total Bilirubin Direct Bilirubin AST ALT Lactate Dehydrogenase Total Creatine Kinase Troponin T Total Protein Albumin Triglycerides Arterial Blood Glucose Arterial Blood Ionized Calcium Urine pH Urine Creatinine Salicylates Acetaminophen Coronavirus (PCR) 09/22/20 09/22/20 09/22/20 05:32 12:07 17:53 WBC RBC Hgb Hct MCHC RDW Lymph % (Auto) [place] % (Auto) Lymph # (Auto) [place] # (Auto) Seg Neutrophils % Seg Neuts % (Manual) Lymphocytes % (Manual) Monocytes % (Manual) Nucleated RBC % Seg Neutrophils # Seg Neutrophils # Man Lymphocytes # (Manual) Monocytes # (Manual) PT INR D-Dimer ABG pH POC ABG pCO2 POC ABG pO2 ABG pO2 ABG HCO3 ABG Base Excess ABG Hemoglobin ABG Oxyhemoglobin ABG Sodium ABG Potassium ABG Chloride ABG Glucose Carboxyhemoglobin Sodium Potassium Chloride Carbon Dioxide BUN Creatinine Glucose POC Glucose 172 H 169 H 178 H Lactic Acid Calcium Phosphorus Ferritin Total Bilirubin Direct Bilirubin AST ALT Lactate Dehydrogenase Total Creatine Kinase Troponin T Total Protein Albumin Triglycerides Arterial Blood Glucose Arterial Blood Ionized Calcium Urine pH Urine Creatinine Salicylates Acetaminophen Coronavirus (PCR) 09/22/20 09/23/20 09/23/20 23:34 05:21 06:05 WBC RBC Hgb Hct MCHC RDW Lymph % (Auto) [place] % (Auto) Lymph # (Auto) [place] # (Auto) Seg Neutrophils % Seg Neuts % (Manual) Lymphocytes % (Manual) Monocytes % (Manual) Nucleated RBC % Seg Neutrophils # Seg Neutrophils # Man Lymphocytes # (Manual) Monocytes # (Manual) PT INR D-Dimer ABG pH POC ABG pCO2 POC ABG pO2 ABG pO2 ABG HCO3 ABG Base Excess ABG Hemoglobin ABG Oxyhemoglobin ABG Sodium ABG Potassium ABG Chloride ABG Glucose Carboxyhemoglobin Sodium 147 H Potassium Chloride 109.2 H Carbon Dioxide 21 L BUN 54 H Creatinine 4.2 H Glucose 193 H POC Glucose 151 H 168 H Lactic Acid Calcium Phosphorus Ferritin Total Bilirubin Direct Bilirubin AST ALT Lactate Dehydrogenase Total Creatine Kinase Troponin T Total Protein Albumin Triglycerides Arterial Blood Glucose Arterial Blood Ionized Calcium Urine pH Urine Creatinine Salicylates Acetaminophen Coronavirus (PCR) 09/23/20 09/23/20 09/23/20 12:30 17:52 23:16 WBC RBC Hgb Hct MCHC RDW Lymph % (Auto) [place] % (Auto) Lymph # (Auto) [place] # (Auto) Seg Neutrophils % Seg Neuts % (Manual) Lymphocytes % (Manual) Monocytes % (Manual) Nucleated RBC % Seg Neutrophils # Seg Neutrophils # Man Lymphocytes # (Manual) Monocytes # (Manual) PT INR D-Dimer ABG pH POC ABG pCO2 POC ABG pO2 ABG pO2 ABG HCO3 ABG Base Excess ABG Hemoglobin ABG Oxyhemoglobin ABG Sodium ABG Potassium ABG Chloride ABG Glucose Carboxyhemoglobin Sodium Potassium Chloride Carbon Dioxide BUN Creatinine Glucose POC Glucose 170 H 164 H 160 H Lactic Acid Calcium Phosphorus Ferritin Total Bilirubin Direct Bilirubin AST ALT Lactate Dehydrogenase Total Creatine Kinase Troponin T Total Protein Albumin Triglycerides Arterial Blood Glucose Arterial Blood Ionized Calcium Urine pH Urine Creatinine Salicylates Acetaminophen Coronavirus (PCR) 09/24/20 09/24/20 09/24/20 05:22 05:44 12:32 WBC RBC Hgb Hct MCHC RDW Lymph % (Auto) [place] % (Auto) Lymph # (Auto) [place] # (Auto) Seg Neutrophils % Seg Neuts % (Manual) Lymphocytes % (Manual) Monocytes % (Manual) Nucleated RBC % Seg Neutrophils # Seg Neutrophils # Man Lymphocytes # (Manual) Monocytes # (Manual) PT INR D-Dimer ABG pH POC ABG pCO2 POC ABG pO2 ABG pO2 ABG HCO3 ABG Base Excess ABG Hemoglobin ABG Oxyhemoglobin ABG Sodium ABG Potassium ABG Chloride ABG Glucose Carboxyhemoglobin Sodium 148 H Potassium Chloride 109.2 H Carbon Dioxide BUN 61 H Creatinine 4.9 H Glucose 176 H POC Glucose 150 H 165 H Lactic Acid Calcium Phosphorus Ferritin Total Bilirubin Direct Bilirubin AST ALT Lactate Dehydrogenase Total Creatine Kinase Troponin T Total Protein Albumin Triglycerides Arterial Blood Glucose Arterial Blood Ionized Calcium Urine pH Urine Creatinine Salicylates Acetaminophen Coronavirus (PCR) 09/24/20 09/24/20 09/25/20 17:28 23:18 05:18 WBC RBC Hgb Hct MCHC RDW Lymph % (Auto) [place] % (Auto) Lymph # (Auto) [place] # (Auto) Seg Neutrophils % Seg Neuts % (Manual) Lymphocytes % (Manual) Monocytes % (Manual) Nucleated RBC % Seg Neutrophils # Seg Neutrophils # Man Lymphocytes # (Manual) Monocytes # (Manual) PT INR D-Dimer ABG pH POC ABG pCO2 POC ABG pO2 ABG pO2 ABG HCO3 ABG Base Excess ABG Hemoglobin ABG Oxyhemoglobin ABG Sodium ABG Potassium ABG Chloride ABG Glucose Carboxyhemoglobin Sodium 149 H Potassium 3.3 L Chloride 109.6 H Carbon Dioxide BUN 70 H Creatinine 5.6 H Glucose 196 H POC Glucose 153 H 177 H Lactic Acid Calcium Phosphorus Ferritin Total Bilirubin Direct Bilirubin AST 55 H ALT 74 H Lactate Dehydrogenase Total Creatine Kinase Troponin T Total Protein Albumin 2.6 L Triglycerides Arterial Blood Glucose Arterial Blood Ionized Calcium Urine pH Urine Creatinine Salicylates Acetaminophen Coronavirus (PCR) 09/25/20 09/25/20 05:18 11:47 WBC RBC Hgb Hct MCHC RDW Lymph % (Auto) [place] % (Auto) Lymph # (Auto) [place] # (Auto) Seg Neutrophils % Seg Neuts % (Manual) Lymphocytes % (Manual) Monocytes % (Manual) Nucleated RBC % Seg Neutrophils # Seg Neutrophils # Man Lymphocytes # (Manual) Monocytes # (Manual) PT INR D-Dimer ABG pH POC ABG pCO2 POC ABG pO2 ABG pO2 ABG HCO3 ABG Base Excess ABG Hemoglobin ABG Oxyhemoglobin ABG Sodium ABG Potassium ABG Chloride ABG Glucose Carboxyhemoglobin Sodium Potassium Chloride Carbon Dioxide BUN Creatinine Glucose POC Glucose 159 H 169 H Lactic Acid Calcium Phosphorus Ferritin Total Bilirubin Direct Bilirubin AST ALT Lactate Dehydrogenase Total Creatine Kinase Troponin T Total Protein Albumin Triglycerides Arterial Blood Glucose Arterial Blood Ionized Calcium Urine pH Urine Creatinine Salicylates Acetaminophen Coronavirus (PCR)
[2020-09-26] MEDS: INSULIN LISPRO 100 UNIT/ML SUB-Q SCH ×4 (00:15→19:16)
[2020-09-26] MEDS: METOCLOPRAMIDE 10 MG/2 ML INJ IV SCH ×4 (00:16→19:17)
[2020-09-26 05:34] LABS: Basophils % (Auto) 0.2 % (0.0-1.8); Eosinophils # (Auto) 0.1 K/mm3 (0.0-0.4); Eosinophils % (Auto) 1.5 % (0.0-4.3); Hematocrit 25.8 % (35.5-45.6); Hemoglobin 8.5 gm/dl (11.8-15.2); Lymphocytes # (Auto) 1.5 K/mm3 (1.2-5.4); Mean Corpuscular HGB Conc 33 % (32-34); Mean Corpuscular Volume 88 fl (84-94); Monocytes # (Auto) 1.1 K/mm3 (0.0-0.8); Monocytes % (Auto) 11.3 % (0.0-7.3); Platelet Count 211 K/mm3 (140-440); Red Blood Count 2.93 M/mm3 (3.65-5.03); Red Cell Distribution Width 18.5 % (13.2-15.2)
[2020-09-26] MEDS: hydrALAZINE 25 MG TAB PO SCH ×3 (05:37→21:28)
[2020-09-26 05:38] LABS: Calcium 8.9 mg/dL (8.4-10.2)
[2020-09-26] MEDS: MULTIVITAMINS 5 ML ORAL LIQUID PO SCH (09:48)
[2020-09-26] MEDS: FAMOTIDINE 20 MG/2 ML INJ IV SCH (09:48)
[2020-09-26] MEDS: levETIRAcetam 1,500 MG in DEXTROSE 5% IN WATER 100 ML IV SCH ×2 (09:48→21:28)
[2020-09-26] MEDS: VALPROATE SODIUM 1,000 MG in SODIUM CHLORIDE 0.9% 100 ML IV SCH ×2 (09:49→21:28)
--- NOTE | 2020-09-26 10:35 | Progress Note ---
Assessment and Plan Assessment and plan: S/p cardiopulmonary arrest Toxic metabolic encephalopathy +/-anoxic injury Acute hypoxic respiratory failure Acute kidney injury Seizure disorder Hyperkalemia COVID-19 pneumonia Sepsis Transaminitis Morbid obesity. 09/15/2020. MRI brain for further evaluation. Continue AEDs of valproic acid and Keppra. Continue hemodialysis per nephrology recommendations. Overall prognosis remains guarded and poor. 09/16/2020. ID recommends continue to monitor patient off of antibiotics. Fever most likely of central etiology. Patient with questionable seizures versus myoclonus from anoxic brain injury. Patient unable to undergo MRI due to body habitus. Continue AEDs per neurology recommendations. Inflammatory markers elevated. Patient was recently hospitalized for COVID-19 pneumonia at the [place] prior to being hospitalized [place]. Patient not a candidate for remdesivir due to hepatic and renal failure. Viral hepatitis panel negative. Overall prognosis extremely poor. 09/17/2020. Fevers have resolved over the past 48 hours. Continue to monitor off antibiotics per ID recommendations. Patient with questionable seizures versus myoclonus from anoxic brain injury. Patient unable to undergo MRI due to body habitus. EEG is nonspecific but given CT of head findings consistent with anoxic encephalopathy, brain injury. Continue AEDs per neurology recommendations. Inflammatory markers elevated. Patient was recently hospitalized for COVID-19 pneumonia at the [place] prior to being hospitalized here. Patient not a candidate for remdesivir due to hepatic and renal failure. Viral hepatitis panel negative. Patient is s/p emergent HD on Friday (hyperK) and Friday - 09/08. Patient also S/p HD 09/15. Continue hemodialysis per nephrology recommendations. Patient currently on AC/PRVC mode ventilation with rate of 30, tidal volume 475, FiO2 30% and PEEP of 6. As stated in neuro note, overall prognosis is very poor. 09/18/2020. Fevers have resolved over the past 72 hours. Continue to monitor off antibiotics per ID recommendations. Leukocytosis persistent for the past 4 days. Patient with questionable seizures/myoclonus from anoxic brain injury. Patient unable to undergo MRI due to body habitus. EEG is nonspecific but given CT of head findings consistent with anoxic encephalopathy, brain injury. Continue AEDs per neurology recommendations. Inflammatory markers elevated. Patient was recently hospitalized for COVID-19 pneumonia at the [place] to being hospitalized [place]. Patient not a candidate for remdesivir due to hepatic and renal failure. Viral hepatitis panel negative. Patient currently on AC/PRVC mode ventilation with rate of 30, tidal volume 475, FiO2 30% and PEEP of 6. Overall prognosis remains guarded/poor. 09/19/2020 Fevers have resolved over the past 4 days. Continue to monitor off antibiotics per ID recommendations. Leukocytosis persistent for the past 4 days. Patient with questionable seizures/myoclonus from anoxic brain injury. Patient unable to undergo MRI due to body habitus. EEG is nonspecific but given CT of head findings consistent with anoxic encephalopathy, brain injury. Continue AEDs per neurology recommendations. Inflammatory markers elevated. Patient was recently hospitalized for COVID-19 pneumonia at the [place] to being hospitalized [place]. Patient not a candidate for remdesivir due to hepatic and renal failure. Viral hepatitis panel negative. Patient currently on AC/PRVC mode ventilation with rate of 30, tidal volume 475, FiO2 30% and PEEP of 6. Overall prognosis remains guarded/poor. 09/20/2020 -Surgery consulted for PEG and trach, will continue to follow. 09/21/2020; patient will have PEG and trach by Dr. hayes today. Prognosis is poor. Continue with current management. Clarifier Operator Helper is following for vent management. 09/22/2020; patient had PEG and trach yesterday. 09/23/2020; continue PEG Tube Feeding. 09/24/2020; continue PEG tube feeding, patient is on Keppra, lorazepam and phenytoin per neurology recommendation. Patient is on hemodialysis and nephrology is following. Management of mechanical ventilation for CCM. 09/25/2020. Continue PEG tube feeding, patient is on Keppra, lorazepam and phenytoin per neurology recommendation. Patient is on hemodialysis and nephrology is following. Management of mechanical ventilation for CCM. Continue PSV/CPAP 07/16. Continue tracheostomy care, secretion control and airway management. 09/26/2020. Patient has tolerated PSV for approximately 48 hours. I discussed with pulmonary possibility of T-piece today. Continue tracheostomy care, sec retion control and airway management. If patient tolerates T-piece trials, patient will be transferred to the floor. Continue AEDs of Keppra and phenytoin as well as Ativan as needed per neurology recommendations. Continue hemodialysis per nephrology. Continue TF with aspiration precautions. The high probability of a clinically significant, sudden or life threatening deterioration of the [cardiac, respiratory and neurological] system(s) required my full and direct attention, intervention and personal management. The aggregate critical care time was [32] minutes. This time is in addition to time spent performing reported procedures but includes the following: [x] Data Review and interpretation [x] Patient assessment and monitoring of vital signs [x] Documentation [x] Medication orders and management History Interval history: 65 y/o male with out of hospital cardiac arrest, acute hypoxic respiratory failure and COVID-19 infection. Hospitalist Physical - Constitutional Vitals: Temp Pulse Resp BP Pulse Ox 97.4 F L 55 L 22 137/75 100 09/26/20 07:00 09/26/20 09:15 09/26/20 09:15 09/26/20 09:15 09/26/20 09:15 General appearance: Present: other (On mechanical ventilation) - EENT Eyes: Present: PERRL, EOM intact ENT: hearing intact, clear oral mucosa, dentition normal - Neck Neck: Present: supple, normal ROM - Respiratory Respiratory effort: normal Respiratory: bilateral: CTA - Cardiovascular Rhythm: regular Heart Sounds: Present: S1 & S2. Absent: gallop, rub - Extremities Extremities: no ischemia, No edema, Full ROM - Abdominal General gastrointestinal: soft, non-tender, non-distended, normal bowel sounds - Integumentary Integumentary: Present: clear, warm, dry - Neurologic Neurologic: CNII-XII intact, moves all extremities HEART Score - HEART Score Troponin: Troponin T 0.076 ng/mL (0.00-0.029) H 09/07/20 14:00 Results - Labs CBC & Chem 7: 09/26/20 04:00 09/26/20 05:00 Labs: Laboratory Last Values WBC 9.9 K/mm3 (4.5-11.0) 09/26/20 04:00 RBC 2.93 M/mm3 (3.65-5.03) L 09/26/20 04:00 Hgb 8.5 gm/dl (11.8-15.2) L 09/26/20 04:00 Hct 25.8 % (35.5-45.6) L 09/26/20 04:00 MCV 88 fl (84-94) 09/26/20 04:00 MCH 29 pg (28-32) 09/26/20 04:00 MCHC 33 % (32-34) 09/26/20 04:00 RDW 18.5 % (13.2-15.2) H 09/26/20 04:00 Plt Count 211 K/mm3 (140-440) 09/26/20 04:00 Lymph % (Auto) 15.0 % (13.4-35.0) 09/26/20 04:00 [place] % (Auto) 11.3 % (0.0-7.3) H 09/26/20 04:00 Eos % (Auto) 1.5 % (0.0-4.3) 09/26/20 04:00 Baso % (Auto) 0.2 % (0.0-1.8) 09/26/20 04:00 Lymph # (Auto) 1.5 K/mm3 (1.2-5.4) 09/26/20 04:00 [place] # (Auto) 1.1 K/mm3 (0.0-0.8) H 09/26/20 04:00 Eos # (Auto) 0.1 K/mm3 (0.0-0.4) 09/26/20 04:00 Baso # (Auto) 0.0 K/mm3 (0.0-0.1) 09/26/20 04:00 Add Manual Diff Complete 09/19/20 05:13 Total Counted 100 09/19/20 05:13 Seg Neutrophils % 72.0 % (40.0-70.0) H 09/26/20 04:00 Seg Neuts % (Manual) 87.0 % (40.0-70.0) H 09/19/20 05:13 Band Neutrophils % 1.0 % 09/19/20 05:13 Lymphocytes % (Manual) 5.0 % (13.4-35.0) L 09/19/20 05:13 Monocytes % (Manual) 7.0 % (0.0-7.3) 09/19/20 05:13 Eosinophils % (Manual) 2.0 % (0.0-4.3) 09/07/20 14:00 Metamyelocytes % 2.0 % 09/08/20 Unknown Nucleated RBC % Not Reportable 09/19/20 05:13 Seg Neutrophils # 7.1 K/mm3 (1.8-7.7) 09/26/20 04:00 Seg Neutrophils # Man 19.8 K/mm3 (1.8-7.7) H 09/19/20 05:13 Band Neutrophils # 0.2 K/mm3 09/19/20 05:13 Lymphocytes # (Manual) 1.1 K/mm3 (1.2-5.4) L 09/19/20 05:13 Abs React Lymphs (Man) 0.0 K/mm3 09/19/20 05:13 Monocytes # (Manual) 1.6 K/mm3 (0.0-0.8) H 09/19/20 05:13 Eosinophils # (Manual) 0.0 K/mm3 (0.0-0.4) 09/19/20 05:13 Basophils # (Manual) 0.0 K/mm3 (0.0-0.1) 09/19/20 05:13 Metamyelocytes # 0.0 K/mm3 09/19/20 05:13 Myelocytes # 0.0 K/mm3 09/19/20 05:13 Promyelocytes # 0.0 K/mm3 09/19/20 05:13 Blast Cells # 0.0 K/mm3 09/19/20 05:13 WBC Morphology Not Reportable 09/19/20 05:13 Hypersegmented Neuts Not Reportable 09/19/20 05:13 Hyposegmented Neuts Not Reportable 09/19/20 05:13 Hypogranular Neuts Not Reportable 09/19/20 05:13 Smudge Cells Not Reportable 09/19/20 05:13 Toxic Granulation Not Reportable 09/19/20 05:13 Toxic Vacuolation Not Reportable 09/19/20 05:13 Dohle Bodies Not Reportable 09/19/20 05:13 Pelger-Huet Anomaly Not Reportable 09/19/20 05:13 Justus Rods Not Reportable 09/19/20 05:13 Platelet Estimate Consistent w auto 09/19/20 05:13 Clumped Platelets Not Reportable 09/19/20 05:13 Plt Clumps, EDTA Not Reportable 09/19/20 05:13 Large Platelets Not Reportable 09/19/20 05:13 Giant Platelets Not Reportable 09/19/20 05:13 Platelet Satelliting Not Reportable 09/19/20 05:13 Plt Morphology Comment Not Reportable 09/19/20 05:13 RBC Morphology Not Reportable 09/19/20 05:13 Dimorphic RBCs Not Reportable 09/19/20 05:13 Polychromasia Not Reportable 09/19/20 05:13 Hypochromasia Not Reportable 09/19/20 05:13 Poikilocytosis Not Reportable 09/19/20 05:13 Anisocytosis 1+ 09/19/20 05:13 Microcytosis Not Reportable 09/19/20 05:13 Macrocytosis Not Reportable 09/19/20 05:13 Spherocytes Not Reportable 09/19/20 05:13 Pappenheimer Bodies Not Reportable 09/19/20 05:13 Sickle Cells Not Reportable 09/19/20 05:13 Target Cells Not Reportable 09/19/20 05:13 Tear Drop Cells Not Reportable 09/19/20 05:13 Ovalocytes Not Reportable 09/19/20 05:13 Helmet Cells Not Reportable 09/19/20 05:13 [place] Bodies Not Reportable 09/19/20 05:13 [place] Rings Not Reportable 09/19/20 05:13 [place] Cells Not Reportable 09/19/20 05:13 Bite Cells Not Reportable 09/19/20 05:13 Crenated Cell Not Reportable 09/19/20 05:13 Elliptocytes Not Reportable 09/19/20 05:13 Acanthocytes (Spur) Not Reportable 09/19/20 05:13 Rouleaux Not Reportable 09/19/20 05:13 Hemoglobin C Crystals Not Reportable 09/19/20 05:13 Schistocytes Not Reportable 09/19/20 05:13 Malaria parasites Not Reportable 09/19/20 05:13 [place] Bodies Not Reportable 09/19/20 05:13 Hem Pathologist Commnt No 09/19/20 05:13 PT 16.1 Sec. (12.2-14.9) H 09/12/20 04:00 INR 1.31 (0.87-1.13) H 09/12/20 04:00 APTT 32.4 Sec. (24.2-36.6) 09/09/20 10:00 D-Dimer 8315.85 ng/mlDDU (0-234) H 09/07/20 14:00 ABG pH 7.442 (7.320-7.450) 09/14/20 03:54 POC ABG pCO2 42.3 mmHg (32.0-48.0) 09/14/20 03:54 ABG pCO2 33.4 mm Hg 09/11/20 05:40 POC ABG pO2 71.1 mmHg (83-108) L 09/14/20 03:54 ABG pO2 112.1 mm Hg (80.0-90.0) H 09/11/20 05:40 POC ABG HCO3 28.2 09/14/20 03:54 ABG HCO3 28.1 mmol/L (20.0-26.0) H 09/11/20 05:40 ABG O2 Saturation 98.4 % (95.0-99.0) 09/11/20 05:40 ABG O2 Content 11.6 (0.0-44) 09/11/20 05:40 POC ABG Base Excess 3.7 09/14/20 03:54 ABG Base Excess 5.4 mmol/L (-2.0-3.0) H 09/11/20 05:40 ABG Hemoglobin 10.3 (12.0-17.5) L 09/14/20 03:54 ABG Oxyhemoglobin 93.2 (94-98) L 09/13/20 04:47 ABG Carboxyhemoglobin 1.2 % (0.0-5.0) 09/11/20 05:40 ABG Methemoglobin 0.3 (0.0-1.5) 09/13/20 04:47 ABG Sodium 135.2 mmol/L (136.0-145.0) L 09/14/20 03:54 ABG Potassium 3.8 mmol/L (3.40-4.50) 09/14/20 03:54 ABG Chloride 98.0 mmol/L (98-107) 09/14/20 03:54 ABG Glucose 281 mg/dL (65-95) H 09/14/20 03:54 Oxyhemoglobin 96.8 % (95.0-99.0) 09/11/20 05:40 Carboxyhemoglobin 0.4 (0.5-1.5) L 09/13/20 04:47 FiO2 30 09/14/20 03:54 Sodium 143 mmol/L (137-145) 09/26/20 05:00 Potassium 3.4 mmol/L (3.6-5.0) L 09/26/20 05:00 Chloride 105.0 mmol/L (98-107) 09/26/20 05:00 Carbon Dioxide 26 mmol/L (22-30) 09/26/20 05:00 Anion Gap 15 mmol/L 09/26/20 05:00 BUN 49 mg/dL (9-20) H 09/26/20 05:00 Creatinine 4.4 mg/dL (0.8-1.3) H 09/26/20 05:00 Estimated GFR 16 ml/min 09/26/20 05:00 BUN/Creatinine Ratio 11 % 09/26/20 05:00 Glucose 179 mg/dL (75-100) H 09/26/20 05:00 POC Glucose 155 mg/dL (70-105) H 09/26/20 05:18 Lactic Acid 2.90 mmol/L (0.7-2.0) H* 09/17/20 13:52 Calcium 8.9 mg/dL (8.4-10.2) 09/26/20 05:00 Phosphorus 8.00 mg/dL (2.5-4.5) H 09/08/20 12:02 Magnesium 1.80 mg/dL (1.7-2.3) 09/08/20 12:02 Ferritin > 2000.0 ng/mL (30.0-300.0) H 09/07/20 14:00 Total Bilirubin 0.50 mg/dL (0.1-1.2) 09/25/20 05:18 Direct Bilirubin 0.5 mg/dL (0-0.2) H 09/08/20 05:00 Indirect Bilirubin 0.5 mg/dL 09/08/20 05:00 AST 55 units/L (5-40) H 09/25/20 05:18 ALT 74 units/L (7-56) H 09/25/20 05:18 Alkaline Phosphatase 81 units/L (35-129) 09/25/20 05:18 Ammonia 50.0 umol/L (25-60) 09/07/20 14:00 Lactate Dehydrogenase 882 units/L (91-180) H 09/07/20 14:00 Total Creatine Kinase 477 units/L (55-170) H 09/07/20 14:00 Troponin T 0.076 ng/mL (0.00-0.029) H 09/07/20 14:00 C-Reactive Protein 1.10 mg/dL (0.00-1.30) 09/07/20 14:00 Total Protein 7.0 g/dL (6.3-8.2) 09/25/20 05:18 Albumin 2.6 g/dL (3.9-5) L 09/25/20 05:18 Albumin/Globulin Ratio 0.6 % 09/25/20 05:18 Triglycerides 220 mg/dL (2-149) H 09/12/20 Unknown Procalcitonin 1.52 ng/mL (<0.15) 09/17/20 13:02 TSH 2.290 mlU/mL (0.270-4.200) 09/07/20 14:00 Arterial Blood Glucose 281 mg/dL (65-95) H 09/14/20 03:54 Arterial Blood Ionized Calcium 4.6 mg/dL (4.6-5.3) 09/14/20 03:54 Urine Color Straw (Yellow) 09/07/20 13:08 Urine Turbidity Slightly-cloudy (Clear) 09/07/20 13:08 Urine pH 8.0 (5.0-7.0) H 09/07/20 13:08 Ur Specific [place] 1.006 (1.003-1.030) 09/07/20 13:08 Urine Protein 100 mg/dl mg/dL (Negative) 09/07/20 13:08 Urine Glucose (UA) Neg mg/dL (Negative) 09/07/20 13:08 Urine Ketones Neg mg/dL (Negative) 09/07/20 13:08 Urine Blood Neg (Negative) 09/07/20 13:08 Urine Nitrite Neg (Negative) 09/07/20 13:08 Urine Bilirubin Neg (Negative) 09/07/20 13:08 Urine Urobilinogen < 2.0 mg/dL (<2.0) 09/07/20 13:08 Ur Leukocyte Esterase Neg (Negative) 09/07/20 13:08 Urine WBC (Auto) 4.0 /HPF (0.0-6.0) 09/07/20 13:08 Urine RBC (Auto) 18.0 /HPF (0.0-6.0) 09/07/20 13:08 U Epithel Cells (Auto) 1.0 /HPF (0-13.0) 09/07/20 13:08 Urine Mucus Few /HPF 09/07/20 13:08 Urine Sperm 3+ /HPF (TAFFY CANDY MAKER) 09/07/20 13:08 Urine Creatinine 182.4 mg/dL (0.1-20.0) H 09/08/20 Unknown Urine Sodium 40 mmol/L 09/08/20 Unknown Salicylates < 0.3 mg/dL (2.8-20.0) L 09/07/20 14:00 Acetaminophen 5.0 ug/mL (10.0-30.0) L 09/07/20 14:00 Plasma/Serum Alcohol < 0.01 % (0-0.07) 09/07/20 14:00 Coronavirus (PCR) Negative (Negative) 09/19/20 Unknown Hepatitis A IgM Ab Non-reactive (NonReactive) 09/07/20 14:00 Hep Bs Antigen Non-reactive (Negative) 09/07/20 14:00 Hep B Core IgM Ab Non-reactive (NonReactive) 09/07/20 14:00 Hepatitis C Antibody Non-reactive (NonReactive) 09/07/20 14:00 HIV 1&2 Antibody Rapid Non react (Non React) 09/07/20 14:34 HIV P24 Antigen Non react (Non React) 09/07/20 14:34 Blood Type O POSITIVE 09/09/20 10:00 Antibody Screen Negative 09/07/20 14:00 Mae/IV: Voiding Method Indwelling Catheter IV Catheter Type [Right Triple Lumen Cath Femoral] IV Catheter Type [Left Peripheral IV Antecubital] IV Catheter Type [Left Hand] Peripheral IV IV Catheter Type [Right Peripheral IV Antecubital] Active Medications - Current Medications Current Medications: Generic Name Dose Route Start Last Admin Trade Name Freq PRN Reason Stop Dose Admin Acetaminophen 400 mg 09/10/20 20:50 09/14/20 23:38 Acetaminophen 325 Mg/10.15 Ml Oral Liqd Unit Dose PO 400 mg Q4HR PRN Administration Non Cardiac Pain or Temp>100.5 Lipase/Protease/Amylase 1 each 09/09/20 09:40 Lipase 10,500/Protease 25,000/Amylase 43,750 (Units) Dr Cap FEEDTUBE PRN PRN For Clogged Feeding Tube Famotidine 20 mg 09/20/20 11:00 09/26/20 09:48 Famotidine 20 Mg/2 Ml Inj IV 20 mg DAILY TAYLOR Administration Hydralazine HCl 50 mg 09/23/20 14:00 09/26/20 05:37 Hydralazine 25 Mg Tab PO 50 mg Q8HR TAYLOR Administration Hydrophilic Ointment 1 applic 09/07/20 13:08 Lip Therapy Vaseline TP Q2HR PRN Dry Lips Sodium Chloride 100 mls @ 999 mls/hr 09/09/20 13:36 Nacl 0.9% IV JAYJAY PRN Hypotension Levetiracetam 1,500 mg/ 115 mls @ 400 mls/hr 09/11/20 10:00 09/26/20 09:48 Dextrose IV 400 mls/hr BID TAYLOR Administration Valproate Sodium 1,000 mg/ 110 mls @ 100 mls/hr 09/14/20 22:00 09/26/20 09:49 Sodium Chloride IV 100 mls/hr Q12HR TAYLOR Administration Insulin Human Lispro 0 unit 09/12/20 12:00 09/26/20 05:37 Insulin Lispro 100 Unit/Ml SUB-Q 3 unit Q6HR TAYLOR Administration Protocol Lansoprazole 30 mg 09/11/20 11:00 09/19/20 22:04 Lansoprazole 30 Mg Solutab FEEDTUBE 30 mg BID TAYLOR Administration Lorazepam 2 mg 09/08/20 00:14 09/14/20 13:36 Lorazepam 2 Mg/Ml Vial IV 2 mg Q4H PRN Administration Seizures Metoclopramide HCl 5 mg 09/22/20 12:00 09/26/20 05:37 Metoclopramide 10 Mg/2 Ml Inj IV 5 mg Q6HR TAYLOR Administration Multi-Ingred Cream/Lotion/Oil/Oint 1 applic 09/07/20 13:08 09/20/20 10:50 Mineral Oil/Petrolatum, White Ophth Oint 3.5 Gm OU 1 applic Q4HR PRN Administration Dry Eye(s) Multivitamins 5 ml 09/09/20 12:00 09/26/20 09:48 Multivitamins 5 Ml Oral Liquid PO 5 ml QDAY TAYLOR Administration Ondansetron HCl 4 mg 09/07/20 17:55 09/19/20 04:00 Ondansetron 4 Mg/2 Ml Inj IV 4 mg Q8H PRN Administration Nausea And Vomiting Senna/Docusate Sodium 2 tab 09/20/20 11:00 Sennosides/Docusate Sodium 8.6/50 Mg Tab PO BID PRN Laxative Effect Simple Syrup 15 ml 09/09/20 09:40 09/17/20 17:43 Simple Syrup 15 Ml FEEDTUBE 15 ml PRN PRN Administration Hypoglycemia Simple Syrup 30 ml 09/09/20 09:40 Simple Syrup 15 Ml FEEDTUBE PRN PRN Hypoglycemia Sodium Bicarbonate 325 mg 09/09/20 09:40 Sodium Bicarbonate 325 Mg Tab FEEDTUBE PRN PRN For Clogged Feeding Tube Sodium Chloride 10 ml 09/07/20 22:00 09/26/20 09:50 Sodium Chloride 0.9% 10 Ml Flush Syringe IV 10 ml BID TAYLOR Administration Sodium Chloride 10 ml 09/07/20 17:55 Sodium Chloride 0.9% 10 Ml Flush Syringe IV PRN PRN LINE FLUSH Nutrition/Malnutrition Assess - Dietary Evaluation Nutrition/Malnutrition Findings: Nutrition Notes Start: 09/08/20 12:01 Freq: Status: Active Protocol: Document 09/25/20 12:32 CW (Rec: 09/25/20 12:53 CW [id number]) Nutrition Notes Initial or Follow up Reassessment Current Diagnosis Acute Kidney Injury, Respiratory Failure Other Pertinent Diagnosis on HD, cardiac arrest, COVID ( +), metabolic encephalopathy, pneu Current Diet Nepro 1.8 at 45 mL/hr (goal rate) Labs/Tests Na 149 K 3.3 BUN 70 Cr 5.6 BG 196 Pertinent Medications Humalog Levetiracetam in Dextrose at 115 ml/h Reglan Height 6 ft Weight 150.6 kg [place] Body Weight (kg) 80.90 BMI 45.0 Weight change and time frame -11% x 3 days. Likely related to HD MWF Weight Status Morbidly Obese Subjective/Other Information F/U for TF restart and weights . Weight chaenge likely related to HD. TF held previous day d/t high residuals and vomiting. Awaiting KUB. Will attempt Nepro per MD x1 24 hours following KUB then possible switch to better tolerated TF regimen. Percent of energy/protein needs met: 20%/13% Burn Absent Trauma Absent GI Symptoms Vomiting Current % PO Negligible Minimum of two criteria No physical signs of malnutrition #1 Nutrition Diagnosis Inadequate oral intake Diagnosis Progress(for reassessment Continues documentation) Is patient on ventilator? Yes Is Patient Ambulatory and/or Out of Bed No [facility] 2805.132 Kcal/Kg value to use for calculation 14 Approximate Energy Requirements Using 2108 kcal/Kg Calculation Used for Recommendations Kcal/kg Additional Notes PRO needs: >149g (>1.2g/kg AdBW 124kg) Fluid needs: 8214-7366 mL or per MD Nutrition Intervention Change Diet Order: Change TF regimen to Osmolite 1.5 at 60ml/h with a free water flush of 250 ml q4h for hypernatremia if continues not to tolerate Nepro. If hypernatermia resolved free water flush of 175 q4h Nutrition Support: Nepro 1.8 at 45 mL/hr Flush 200 mL q4h Kcal 1,944 Protein (gm) 87 Fluid (mL) 785 Goal #1 TF tolerance an advancement towards goal rate Goal #2 Meet at least 80% of kcal and protein needs via TF regimen Anticipated Discharge Needs: TF Follow-Up By: 09/27/20 Additional Comments F/U for TF restart, TF toleration
--- NOTE | 2020-09-26 11:12 | Progress Note ---
Assessment and Plan 65 y/o male with out of hospital cardiac arrest now sedated on ativan for possible seizures. 09/26/20: Will do T-piece today. If tolerates the next 24 hours will move out of ICU. : PSV for the next 24 hours if tolerates. Restart feeds today at 10. Continue reglan. If tomorrow, same issues. Will change feeds, obtain GI con sult. Continue antiepileptic therapy. 09/24/20: Continue Daily PSV, maybe ready for 24 hour trial. Antiepleptic therapy. Hold feeds today, suggest GI consult. Will discuss with Dietary on round tomorrow. 09/23/20: Daily PSV trials multiple times a day if needed. Antiepileptic therapy. Resume tube feeds today. 09/22/20: PSV trial today as tolerated and every day from this day forward. NO sedation. Continue antiepileptic therapy. HD per renal. Still having issues with feeds. Will contact to see if he has any food allergies. Prognosis still remains very poor. WIll start some promotility agents as well. 09/21/20: Trach and peg today. Continue with vent weaning. Hopeful we can wean him off the vent once trached. Only place [facility] will cover is SNF. Prognosis remains very poor for recovery of functional state. 09/20/20: Placed consult to surgery now that COVID is negative. However, patient is morbidly obese and his surgery will likely be a complicated one especially with peg placement. Await surgery eval and recs. HD per renal. Continue daily PSV trials, mental status precludes extubation traditionally but maybe able to wean off vent with stable airway such as trach. [facility] has denied transfer and placement requests at this time based on CM notes. Prognosis is very poor, but after speaking with neurology and neurosurgery, patient wishes to continue aggressive measures. 09/19/20: Ordered repeat COVID as surgery will not do trach and peg until negative status. Continue supportive measures. Prognosis is very very poor but family wishes to proceed with [facility] long term care care. 09/18/20: Unable to fit in MRI. Repeat CT showed improvement in edema but no clinical response is seen with this. Will continue Antiepileptic therapy. If wishes to proceed, will need trach and peg. Not sure if he would be candidate for PEG given his size but will ask surgery. Will need repeat COVID test prior to surgery. 09/15/20: Order MRI brain without contrast. Per surgery this will help to add more in regards to prognosis. Continue Valproic Acid and Keppra for seizure therapy. HD going now per renal. Overall prognosis remains guarded to poor. Please reach out to over the weekend to update her as I am not rounding this weekend, ,my partner will be covering. 09/14/20: Will load with valproic acid and then start to wean Diprovan. Spoke with today, very tearful on the phone. Explained to that Neurosurgery would come and [place] but not a candidate for the other therapies she asked about since his edema is related to anoxic injury. Very very poor prognosis. 09/13/20: Per current neuro available, the neurologist from yesterday will call today. EEG is nonspecific but given CT of head findings consistent with anoxic encephalopathy, brain injury. As stated in neuro note, overall prognosis is very poor. Will continue to wean down diprovan to see if patient's seizures have been controlled with current Keppra dosing. Will call once she has spoken to neuro to get her thoughts on the next steps. (trach and peg, vs ho spice as well as code status). Very very poor prognosis. 09/12/20: Long discussion with this am. Given recent head CT results, prognosis for full functional recovery is very POOR and neurology agrees. They will see in consult today. I have spoken to about AND and she is going to discuss with the family. The neurologist has stated they will reach out to the today. I am going to attempt to wean the ativan off and then start to wean the diprovan as long as no seizure activity is seen. Patient is now bradycardic, likely secondary to neuro state. I hope that he is not about to herniate. Patient is also like in Neurogenic DI given large urine out put volume. Very very poor prognosis. Continue supportive measures. 09/11/20: Will increase Keppra to 1500 BID given patient size. Continue Diprovan drip. Getting EEG today. HD per renal. Needs neurology consult however if patient is in status, needs to be transferred to an institution that can provide continuous EEG monitoring. Overll prognosis is very guarded to poor. Have not spoken to yet today. 09/10/20: Loaded with keppra and will start on Keppra BID. Needs EEG on therapy as well as OFF. If patient is in status, needs transfer to a location with continuous EEG capabilities. FiO2 has been weaned back down and is now at 60%, sats in the high 90's. HD per renal. Coags improving. Overall prognosis is guarded to poor. Spoke with on phone yesterday. Consult neurology tomorrow as not available on the weekend. Suggest checking for antibodies as he may be a candidate for convalsescent plasma. Per the , he was diagnosed with COVID on and spent 6 days inpatient at the [facility]. Remains positive now with multisystem organ failure. Explained to that outcome may not be good but need more time to assess. 09/09/20: EEG ordered on yesterday but not done. If done not read. Continue diprovan for now until EEG can be done or interpreted. State Coags but given his oozing from his vascath, will give Vitamin K and FFP. Patient is covid positive so agree with steroids. Not a candidate for remdesivir. Need to check for antibodies, may be a candidate for convalescent plasma. HD per renal. Given improvement in pH will stop bicarb drip. Feed patient. 1. Stop sedation 2. EEG 3. Needs neuro consult. 4. Art line placement 5. Stat repeat of labs, if renal function is truly that bad, will need renal consult. 6. Follow up COVID testing 7. Likely needs echo 8. Will place on bicarb drip. CCT 31 minutes. Subjective Date of service: 09/26/20 Principal diagnosis: Abnormal LFTs, s/p cardiac arrest, acute kidney injury with ATN Interval history: No acute events. Tolerated PSV all night. Will attempt T-piece/trach collar today. Objective Vital Signs - 12hr 09/25/20 09/25/20 09/25/20 23:00 23:15 23:30 Temperature 97.4 F L Pulse Rate 56 L 56 L Pulse Rate [ From Monitor] Respiratory 18 18 Rate Blood Pressure 132/64 136/68 O2 Sat by Pulse 100 100 Oximetry O2 Sat by Pulse Oximetry [ Assessment] 09/25/20 09/25/20 09/25/20 23:31 23:45 23:48 Temperature Pulse Rate 56 L 57 L 56 L Pulse Rate [ From Monitor] Respiratory 14 17 Rate Blood Pressure 132/66 131/67 131/67 O2 Sat by Pulse 100 100 100 Oximetry O2 Sat by Pulse Oximetry [ Assessment] 09/26/20 09/26/20 09/26/20 00:00 00:15 00:30 Temperature Pulse Rate 56 L 56 L 57 L Pulse Rate [ 58 L From Monitor] Respiratory 20 18 18 Rate Blood Pressure 133/68 130/63 131/66 O2 Sat by Pulse 100 100 100 Oximetry O2 Sat by Pulse Oximetry [ Assessment] 09/26/20 09/26/20 09/26/20 00:45 01:01 01:15 Temperature Pulse Rate 58 L 57 L 58 L Pulse Rate [ From Monitor] Respiratory 16 20 19 Rate Blood Pressure 140/71 134/65 139/66 O2 Sat by Pulse 100 100 100 Oximetry O2 Sat by Pulse Oximetry [ Assessment] 09/26/20 09/26/20 09/26/20 01:30 01:45 02:01 Temperature Pulse Rate 57 L 57 L 58 L Pulse Rate [ From Monitor] Respiratory 18 17 18 Rate Blood Pressure 139/64 141/69 132/68 O2 Sat by Pulse 100 100 100 Oximetry O2 Sat by Pulse Oximetry [ Assessment] 09/26/20 09/26/20 09/26/20 02:15 02:30 02:45 Temperature Pulse Rate 59 L 57 L 58 L Pulse Rate [ From Monitor] Respiratory 20 19 20 Rate Blood Pressure 133/69 139/68 144/68 O2 Sat by Pulse 100 100 100 Oximetry O2 Sat by Pulse Oximetry [ Assessment] 09/26/20 09/26/20 09/26/20 03:01 03:05 03:15 Temperature 98.4 F Pulse Rate 63 60 Pulse Rate [ From Monitor] Respiratory 24 23 Rate Blood Pressure 144/68 119/63 O2 Sat by Pulse 98 100 Oximetry O2 Sat by Pulse Oximetry [ Assessment] 09/26/20 09/26/20 09/26/20 03:31 03:45 03:54 Temperature Pulse Rate 56 L 55 L 54 L Pulse Rate [ From Monitor] Respiratory 22 23 Rate Blood Pressure 123/66 132/68 132/68 O2 Sat by Pulse 100 100 100 Oximetry O2 Sat by Pulse Oximetry [ Assessment] 09/26/20 09/26/20 09/26/20 04:00 04:01 04:15 Temperature Pulse Rate 56 L 55 L 55 L Pulse Rate [ 56 L From Monitor] Respiratory 19 26 H 19 Rate Blood Pressure 138/63 134/72 O2 Sat by Pulse 100 99 100 Oximetry O2 Sat by Pulse Oximetry [ Assessment] 09/26/20 09/26/20 09/26/20 04:30 04:45 05:01 Temperature Pulse Rate 53 L 54 L 52 L Pulse Rate [ From Monitor] Respiratory 19 17 21 Rate Blood Pressure 136/68 146/71 133/70 O2 Sat by Pulse 100 100 100 Oximetry O2 Sat by Pulse Oximetry [ Assessment] 09/26/20 09/26/20 09/26/20 05:15 05:30 05:37 Temperature Pulse Rate 54 L 52 L 53 L Pulse Rate [ From Monitor] Respiratory 13 15 Rate Blood Pressure 131/63 131/70 131/70 O2 Sat by Pulse 100 100 Oximetry O2 Sat by Pulse Oximetry [ Assessment] 09/26/20 09/26/20 09/26/20 05:45 06:00 06:15 Temperature Pulse Rate 55 L 55 L 58 L Pulse Rate [ From Monitor] Respiratory 16 20 19 Rate Blood Pressure 132/67 137/67 136/64 O2 Sat by Pulse 100 100 100 Oximetry O2 Sat by Pulse Oximetry [ Assessment] 09/26/20 09/26/20 09/26/20 06:30 06:45 07:00 Temperature 97.4 F L Pulse Rate 58 L 57 L 57 L Pulse Rate [ From Monitor] Respiratory 17 15 16 Rate Blood Pressure 129/65 124/63 128/63 O2 Sat by Pulse 100 100 100 Oximetry O2 Sat by Pulse Oximetry [ Assessment] 09/26/20 09/26/20 09/26/20 07:15 07:31 07:45 Temperature Pulse Rate 59 L 57 L 58 L Pulse Rate [ From Monitor] Respiratory 18 23 22 Rate Blood Pressure 137/65 138/72 135/71 O2 Sat by Pulse 100 100 100 Oximetry O2 Sat by Pulse Oximetry [ Assessment] 09/26/20 09/26/20 09/26/20 07:48 07:54 08:00 Temperature Pulse Rate 59 L 58 L Pulse Rate [ From Monitor] Respiratory 23 Rate Blood Pressure 135/71 136/76 O2 Sat by Pulse 100 100 Oximetry O2 Sat by Pulse 100 Oximetry [ Assessment] 09/26/20 09/26/20 09/26/20 08:15 08:31 08:45 Temperature Pulse Rate 57 L 57 L 55 L Pulse Rate [ From Monitor] Respiratory 15 15 16 Rate Blood Pressure 136/73 137/74 141/74 O2 Sat by Pulse 100 100 100 Oximetry O2 Sat by Pulse Oximetry [ Assessment] 09/26/20 09/26/20 09/26/20 09:00 09:15 09:30 Temperature Pulse Rate 54 L 55 L 54 L Pulse Rate [ From Monitor] Respiratory 16 22 14 Rate Blood Pressure 147/74 137/75 145/78 O2 Sat by Pulse 100 100 100 Oximetry O2 Sat by Pulse Oximetry [ Assessment] 09/26/20 09/26/20 09/26/20 09:45 10:01 10:15 Temperature Pulse Rate 55 L 52 L 54 L Pulse Rate [ From Monitor] Respiratory 22 13 22 Rate Blood Pressure 146/74 142/72 144/71 O2 Sat by Pulse 100 100 100 Oximetry O2 Sat by Pulse Oximetry [ Assessment] 09/26/20 10:31 Temperature Pulse Rate 53 L Pulse Rate [ From Monitor] Respiratory 25 H Rate Blood Pressure 156/68 O2 Sat by Pulse 100 Oximetry O2 Sat by Pulse Oximetry [ Assessment] Constitutional: comatose, other (morbidly obese) Eyes: non-icteric ENT: other (orally intubated and sedated) Neck: supple Effort: normal Ascultation: Bilateral: diminished breath sounds Percussion: Bilateral: not dull Cardiovascular: other (bradycardic) Gastrointestinal: soft CBC and BMP: 09/26/20 04:00 09/26/20 05:00 ABG, PT/INR, D-dimer: ABG ABG pH 7.442 (7.320-7.450) 09/14/20 03:54 POC ABG pCO2 42.3 mmHg (32.0-48.0) 09/14/20 03:54 ABG pCO2 33.4 mm Hg 09/11/20 05:40 POC ABG pO2 71.1 mmHg (83-108) L 09/14/20 03:54 ABG pO2 112.1 mm Hg (80.0-90.0) H 09/11/20 05:40 POC ABG HCO3 28.2 09/14/20 03:54 ABG O2 Saturation 98.4 % (95.0-99.0) 09/11/20 05:40 PT/INR, D-dimer PT 16.1 Sec. (12.2-14.9) H 09/12/20 04:00 INR 1.31 (0.87-1.13) H 09/12/20 04:00 D-Dimer 8315.85 ng/mlDDU (0-234) H 09/07/20 14:00 Abnormal lab findings: Abnormal Labs 09/07/20 09/07/20 09/07/20 13:08 14:00 14:00 WBC 15.7 H RBC Hgb 10.2 L Hct 32.5 L MCHC 31 L RDW 17.5 H Lymph % (Auto) Charles % (Auto) Lymph # (Auto) Charles # (Auto) Seg Neutrophils % Seg Neuts % (Manual) 72.0 H Lymphocytes % (Manual) Monocytes % (Manual) 8.0 H Nucleated RBC % Seg Neutrophils # Seg Neutrophils # Man 11.3 H Lymphocytes # (Manual) Monocytes # (Manual) 1.3 H PT INR D-Dimer 8315.85 H ABG pH POC ABG pCO2 POC ABG pO2 ABG pO2 ABG HCO3 ABG Base Excess ABG Hemoglobin ABG Oxyhemoglobin ABG Sodium ABG Potassium ABG Chloride ABG Glucose Carboxyhemoglobin Sodium Potassium Chloride Carbon Dioxide BUN Creatinine Glucose POC Glucose Lactic Acid Calcium Phosphorus Ferritin Total Bilirubin Direct Bilirubin AST ALT Lactate Dehydrogenase Total Creatine Kinase Troponin T Total Protein Albumin Triglycerides Arterial Blood Glucose Arterial Blood Ionized Calcium Urine pH 8.0 H Urine Creatinine Salicylates Acetaminophen Coronavirus (PCR) 09/07/20 09/07/20 09/07/20 14:00 14:00 14:00 WBC RBC Hgb Hct MCHC RDW Lymph % (Auto) Charles % (Auto) Lymph # (Auto) Charles # (Auto) Seg Neutrophils % Seg Neuts % (Manual) Lymphocytes % (Manual) Monocytes % (Manual) Nucleated RBC % Seg Neutrophils # Seg Neutrophils # Man Lymphocytes # (Manual) Monocytes # (Manual) PT INR D-Dimer ABG pH POC ABG pCO2 POC ABG pO2 ABG pO2 ABG HCO3 ABG Base Excess ABG Hemoglobin ABG Oxyhemoglobin ABG Sodium ABG Potassium ABG Chloride ABG Glucose Carboxyhemoglobin Sodium Potassium Chloride Carbon Dioxide BUN Creatinine Glucose POC Glucose Lactic Acid 4.30 H* Calcium Phosphorus Ferritin > 2000.0 H Total Bilirubin Direct Bilirubin AST ALT Lactate Dehydrogenase 882 H Total Creatine Kinase 477 H Troponin T 0.076 H Total Protein Albumin Triglycerides Arterial Blood Glucose Arterial Blood Ionized Calcium Urine pH Urine Creatinine Salicylates Acetaminophen Coronavirus (PCR) 09/07/20 09/07/20 09/07/20 14:00 14:00 14:00 WBC RBC Hgb Hct MCHC RDW Lymph % (Auto) Charles % (Auto) Lymph # (Auto) Charles # (Auto) Seg Neutrophils % Seg Neuts % (Manual) Lymphocytes % (Manual) Monocytes % (Manual) Nucleated RBC % Seg Neutrophils # Seg Neutrophils # Man Lymphocytes # (Manual) Monocytes # (Manual) PT INR D-Dimer ABG pH POC ABG pCO2 POC ABG pO2 ABG pO2 ABG HCO3 ABG Base Excess ABG Hemoglobin ABG Oxyhemoglobin ABG Sodium ABG Potassium ABG Chloride ABG Glucose Carboxyhemoglobin Sodium Potassium Chloride Carbon Dioxide BUN Creatinine 1.8 H Glucose POC Glucose Lactic Acid Calcium Phosphorus Ferritin Total Bilirubin Direct Bilirubin AST 310 H ALT 339 H Lactate Dehydrogenase Total Creatine Kinase Troponin T Total Protein Albumin 3.6 L Triglycerides Arterial Blood Glucose Arterial Blood Ionized Calcium Urine pH Urine Creatinine Salicylates < 0.3 L Acetaminophen 5.0 L Coronavirus (PCR) 09/07/20 09/08/20 09/08/20 14:26 04:00 04:17 WBC RBC Hgb Hct MCHC RDW Lymph % (Auto) Charles % (Auto) Lymph # (Auto) Charles # (Auto) Seg Neutrophils % Seg Neuts % (Manual) Lymphocytes % (Manual) Monocytes % (Manual) Nucleated RBC % Seg Neutrophils # Seg Neutrophils # Man Lymphocytes # (Manual) Monocytes # (Manual) PT INR D-Dimer ABG pH 7.037 L 7.095 L POC ABG pCO2 92.4 H 68.0 H POC ABG pO2 130.8 H 43.5 L ABG pO2 ABG HCO3 ABG Base Excess ABG Hemoglobin 11.3 L 10.6 L ABG Oxyhemoglobin 70.8 L ABG Sodium ABG Potassium 7.0 H ABG Chloride 108.0 H ABG Glucose Carboxyhemoglobin 0.3 L Sodium Potassium 8.4 H* D Chloride Carbon Dioxide 17 L D BUN 38 H Creatinine 3.9 H D Glucose POC Glucose Lactic Acid Calcium 7.7 L D Phosphorus Ferritin Total Bilirubin Direct Bilirubin AST ALT Lactate Dehydrogenase Total Creatine Kinase Troponin T Total Protein Albumin Triglycerides Arterial Blood Glucose Arterial Blood Ionized Calcium 4.5 L Urine pH Urine Creatinine Salicylates Acetaminophen Coronavirus (PCR) 09/08/20 09/08/20 09/08/20 05:00 05:25 12:02 WBC RBC Hgb Hct MCHC RDW Lymph % (Auto) Charles % (Auto) Lymph # (Auto) Charles # (Auto) Seg Neutrophils % Seg Neuts % (Manual) Lymphocytes % (Manual) Monocytes % (Manual) Nucleated RBC % Seg Neutrophils # Seg Neutrophils # Man Lymphocytes # (Manual) Monocytes # (Manual) PT INR D-Dimer ABG pH 7.088 L POC ABG pCO2 69.1 H POC ABG pO2 35.2 L ABG pO2 ABG HCO3 ABG Base Excess ABG Hemoglobin 10.9 L ABG Oxyhemoglobin 57.1 L ABG Sodium ABG Potassium 7.0 H ABG Chloride 108.0 H ABG Glucose Carboxyhemoglobin 0.4 L Sodium Potassium 8.1 H* Chloride Carbon Dioxide 17 L BUN 38 H Creatinine 3.7 H Glucose POC Glucose Lactic Acid Calcium 8.0 L Phosphorus 8.00 H Ferritin Total Bilirubin Direct Bilirubin 0.5 H AST 3696 H ALT 3331 H Lactate Dehydrogenase Total Creatine Kinase Troponin T Total Protein Albumin 3.5 L Triglycerides Arterial Blood Glucose Arterial Blood Ionized Calcium 4.4 L Urine pH Urine Creatinine Salicylates Acetaminophen Coronavirus (PCR) 09/08/20 09/08/20 09/08/20 16:31 22:36 Unknown WBC RBC Hgb Hct MCHC RDW Lymph % (Auto) Charles % (Auto) Lymph # (Auto) Charles # (Auto) Seg Neutrophils % Seg Neuts % (Manual) Lymphocytes % (Manual) Monocytes % (Manual) Nucleated RBC % Seg Neutrophils # Seg Neutrophils # Man Lymphocytes # (Manual) Monocytes # (Manual) PT INR D-Dimer ABG pH POC ABG pCO2 POC ABG pO2 ABG pO2 ABG HCO3 ABG Base Excess ABG Hemoglobin ABG Oxyhemoglobin ABG Sodium ABG Potassium ABG Chloride ABG Glucose Carboxyhemoglobin Sodium Potassium 5.3 H D Chloride Carbon Dioxide BUN Creatinine Glucose POC Glucose 158 H Lactic Acid Calcium Phosphorus Ferritin Total Bilirubin Direct Bilirubin AST ALT Lactate Dehydrogenase Total Creatine Kinase Troponin T Total Protein Albumin Triglycerides Arterial Blood Glucose Arterial Blood Ionized Calcium Urine pH Urine Creatinine Salicylates Acetaminophen Coronavirus (PCR) Positive A 09/08/20 09/08/20 09/08/20 Unknown Unknown Unknown WBC 18.4 H RBC Hgb 10.1 L Hct 32.0 L MCHC RDW 18.2 H Lymph % (Auto) Charles % (Auto) Lymph # (Auto) Charles # (Auto) Seg Neutrophils % Seg Neuts % (Manual) 81.0 H Lymphocytes % (Manual) 2.0 L Monocytes % (Manual) Nucleated RBC % 1.0 H Seg Neutrophils # Seg Neutrophils # Man 14.9 H Lymphocytes # (Manual) 0.4 L Monocytes # (Manual) 1.1 H PT 21.2 H INR 1.83 H D-Dimer ABG pH POC ABG pCO2 POC ABG pO2 ABG pO2 ABG HCO3 ABG Base Excess ABG Hemoglobin ABG Oxyhemoglobin ABG Sodium ABG Potassium ABG Chloride ABG Glucose Carboxyhemoglobin Sodium Potassium Chloride Carbon Dioxide BUN Creatinine Glucose POC Glucose Lactic Acid Calcium Phosphorus Ferritin Total Bilirubin Direct Bilirubin AST ALT Lactate Dehydrogenase Total Creatine Kinase Troponin T Total Protein Albumin Triglycerides Arterial Blood Glucose Arterial Blood Ionized Calcium Urine pH Urine Creatinine 182.4 H Salicylates Acetaminophen Coronavirus (PCR) 09/09/20 09/09/20 09/09/20 03:14 04:20 04:20 WBC 16.3 H RBC 3.12 L Hgb 8.6 L Hct 26.8 L MCHC RDW 18.2 H Lymph % (Auto) 6.3 L Charles % (Auto) 8.8 H Lymph # (Auto) 1.0 L Charles # (Auto) 1.4 H Seg Neutrophils % 84.5 H Seg Neuts % (Manual) Lymphocytes % (Manual) Monocytes % (Manual) Nucleated RBC % Seg Neutrophils # 13.7 H Seg Neutrophils # Man Lymphocytes # (Manual) Monocytes # (Manual) PT INR D-Dimer ABG pH POC ABG pCO2 POC ABG pO2 148.5 H ABG pO2 ABG HCO3 ABG Base Excess ABG Hemoglobin 9.4 L ABG Oxyhemoglobin 98.8 H ABG Sodium 134.8 L ABG Potassium 5.0 H ABG Chloride ABG Glucose 222 H Carboxyhemoglobin 0.1 L Sodium Potassium 5.2 H Chloride Carbon Dioxide BUN 47 H Creatinine 4.3 H Glucose 211 H POC Glucose Lactic Acid Calcium 7.4 L Phosphorus Ferritin Total Bilirubin [place] 15169 H ALT 6206 H Lactate Dehydrogenase Total Creatine Kinase Troponin T Total Protein 5.6 L Albumin 3.0 L Triglycerides Arterial Blood Glucose 222 H Arterial Blood Ionized Calcium 3.8 L Urine pH Urine Creatinine Salicylates Acetaminophen Coronavirus (PCR) 09/09/20 09/09/20 09/09/20 10:00 12:23 18:22 WBC RBC Hgb Hct MCHC RDW Lymph % (Auto) Charles % (Auto) Lymph # (Auto) Charles # (Auto) Seg Neutrophils % Seg Neuts % (Manual) Lymphocytes % (Manual) Monocytes % (Manual) Nucleated RBC % Seg Neutrophils # Seg Neutrophils # Man Lymphocytes # (Manual) Monocytes # (Manual) PT 21.7 H INR 1.90 H D-Dimer ABG pH POC ABG pCO2 POC ABG pO2 ABG pO2 ABG HCO3 ABG Base Excess ABG Hemoglobin ABG Oxyhemoglobin ABG Sodium ABG Potassium ABG Chloride ABG Glucose Carboxyhemoglobin Sodium Potassium Chloride Carbon Dioxide BUN Creatinine Glucose POC Glucose 216 H 211 H Lactic Acid Calcium Phosphorus Ferritin Total Bilirubin Direct Bilirubin AST ALT Lactate Dehydrogenase Total Creatine Kinase Troponin T Total Protein Albumin Triglycerides Arterial Blood Glucose Arterial Blood Ionized Calcium Urine pH Urine Creatinine Salicylates Acetaminophen Coronavirus (PCR) 09/10/20 09/10/20 09/10/20 04:00 04:05 04:05 WBC 15.0 H RBC 3.06 L Hgb 8.6 L Hct 25.8 L MCHC RDW 18.0 H Lymph % (Auto) Charles % (Auto) Lymph # (Auto) Charles # (Auto) Seg Neutrophils % Seg Neuts % (Manual) 86.0 H Lymphocytes % (Manual) 6.0 L Monocytes % (Manual) 8.0 H Nucleated RBC % Seg Neutrophils # Seg Neutrophils # Man 12.9 H Lymphocytes # (Manual) 0.9 L Monocytes # (Manual) 1.2 H PT 18.4 H INR 1.54 H D-Dimer ABG pH POC ABG pCO2 POC ABG pO2 ABG pO2 ABG HCO3 ABG Base Excess ABG Hemoglobin ABG Oxyhemoglobin ABG Sodium ABG Potassium ABG Chloride ABG Glucose Carboxyhemoglobin Sodium 134 L Potassium Chloride 93.7 L Carbon Dioxide BUN 46 H Creatinine 3.6 H Glucose 275 H POC Glucose Lactic Acid Calcium 7.7 L Phosphorus Ferritin Total Bilirubin 1.30 H Direct Bilirubin AST 5899 H ALT 6440 H Lactate Dehydrogenase Total Creatine Kinase Troponin T Total Protein 5.9 L Albumin 3.3 L Triglycerides Arterial Blood Glucose Arterial Blood Ionized Calcium Urine pH Urine Creatinine Salicylates Acetaminophen Coronavirus (PCR) 09/10/20 09/10/20 09/10/20 04:35 12:06 17:42 WBC RBC Hgb Hct MCHC RDW Lymph % (Auto) Charles % (Auto) Lymph # (Auto) Charles # (Auto) Seg Neutrophils % Seg Neuts % (Manual) Lymphocytes % (Manual) Monocytes % (Manual) Nucleated RBC % Seg Neutrophils # Seg Neutrophils # Man Lymphocytes # (Manual) Monocytes # (Manual) PT INR D-Dimer ABG pH 7.464 H POC ABG pCO2 POC ABG pO2 ABG pO2 ABG HCO3 ABG Base Excess ABG Hemoglobin 9.9 L ABG Oxyhemoglobin ABG Sodium 131.6 L ABG Potassium ABG Chloride 97.0 L ABG Glucose 281 H Carboxyhemoglobin 0.1 L Sodium Potassium Chloride Carbon Dioxide BUN Creatinine Glucose POC Glucose 298 H 340 H Lactic Acid Calcium Phosphorus Ferritin Total Bilirubin Direct Bilirubin AST ALT Lactate Dehydrogenase Total Creatine Kinase Troponin T Total Protein Albumin Triglycerides Arterial Blood Glucose 281 H Arterial Blood Ionized Calcium 3.9 L Urine pH Urine Creatinine Salicylates Acetaminophen Coronavirus (PCR) 09/10/20 09/11/20 09/11/20 23:07 04:44 05:17 WBC RBC Hgb Hct MCHC RDW Lymph % (Auto) Charles % (Auto) Lymph # (Auto) Charles # (Auto) Seg Neutrophils % Seg Neuts % (Manual) Lymphocytes % (Manual) Monocytes % (Manual) Nucleated RBC % Seg Neutrophils # Seg Neutrophils # Man Lymphocytes # (Manual) Monocytes # (Manual) PT 16.9 H INR 1.39 H D-Dimer ABG pH POC ABG pCO2 POC ABG pO2 ABG pO2 ABG HCO3 ABG Base Excess ABG Hemoglobin ABG Oxyhemoglobin ABG Sodium ABG Potassium ABG Chloride ABG Glucose Carboxyhemoglobin Sodium Potassium Chloride Carbon Dioxide BUN Creatinine Glucose POC Glucose 367 H 416 H Lactic Acid Calcium Phosphorus Ferritin Total Bilirubin Direct Bilirubin AST ALT Lactate Dehydrogenase Total Creatine Kinase Troponin T Total Protein Albumin Triglycerides Arterial Blood Glucose Arterial Blood Ionized Calcium Urine pH Urine Creatinine Salicylates Acetaminophen Coronavirus (PCR) 09/11/20 09/11/20 09/11/20 05:40 12:01 17:50 WBC RBC Hgb Hct MCHC RDW Lymph % (Auto) Charles % (Auto) Lymph # (Auto) Charles # (Auto) Seg Neutrophils % Seg Neuts % (Manual) Lymphocytes % (Manual) Monocytes % (Manual) Nucleated RBC % Seg Neutrophils # Seg Neutrophils # Man Lymphocytes # (Manual) Monocytes # (Manual) PT INR D-Dimer ABG pH 7.543 H POC ABG pCO2 POC ABG pO2 ABG pO2 112.1 H ABG HCO3 28.1 H ABG Base Excess 5.4 H ABG Hemoglobin 8.4 L ABG Oxyhemoglobin ABG Sodium ABG Potassium ABG Chloride ABG Glucose Carboxyhemoglobin Sodium Potassium Chloride Carbon Dioxide BUN Creatinine Glucose POC Glucose 418 H 404 H Lactic Acid Calcium Phosphorus Ferritin Total Bilirubin Direct Bilirubin AST ALT Lactate Dehydrogenase Total Creatine Kinase Troponin T Total Protein Albumin Triglycerides Arterial Blood Glucose Arterial Blood Ionized Calcium Urine pH Urine Creatinine Salicylates Acetaminophen Coronavirus (PCR) 09/11/20 09/11/20 09/12/20 23:10 23:43 03:15 WBC RBC Hgb Hct MCHC RDW Lymph % (Auto) Charles % (Auto) Lymph # (Auto) Charles # (Auto) Seg Neutrophils % Seg Neuts % (Manual) Lymphocytes % (Manual) Monocytes % (Manual) Nucleated RBC % Seg Neutrophils # Seg Neutrophils # Man Lymphocytes # (Manual) Monocytes # (Manual) PT INR D-Dimer ABG pH POC ABG pCO2 POC ABG pO2 ABG pO2 ABG HCO3 ABG Base Excess ABG Hemoglobin ABG Oxyhemoglobin ABG Sodium ABG Potassium ABG Chloride ABG Glucose Carboxyhemoglobin Sodium 135 L Potassium Chloride 92.3 L Carbon Dioxide BUN 62 H Creatinine 3.7 H Glucose 406 H POC Glucose 372 H 359 H Lactic Acid Calcium Phosphorus Ferritin Total Bilirubin Direct Bilirubin AST 687 H ALT 3701 H Lactate Dehydrogenase Total Creatine Kinase Troponin T Total Protein 5.8 L Albumin 3.1 L Triglycerides Arterial Blood Glucose Arterial Blood Ionized Calcium Urine pH Urine Creatinine Salicylates Acetaminophen Coronavirus (PCR) 09/12/20 09/12/20 09/12/20 03:18 04:00 04:00 WBC 13.7 H RBC 3.30 L Hgb 9.3 L Hct 27.6 L MCHC RDW 17.5 H Lymph % (Auto) Charles % (Auto) Lymph # (Auto) [place] # (Auto) Seg Neutrophils % Seg Neuts % (Manual) 76.0 H Lymphocytes % (Manual) 11.0 L Monocytes % (Manual) 13.0 H Nucleated RBC % Seg Neutrophils # Seg Neutrophils # Man 10.4 H Lymphocytes # (Manual) Monocytes # (Manual) 1.8 H PT 16.1 H INR 1.31 H D-Dimer ABG pH 7.558 H POC ABG pCO2 POC ABG pO2 74.7 L ABG pO2 ABG HCO3 ABG Base Excess ABG Hemoglobin 9.7 L ABG Oxyhemoglobin ABG Sodium 132.4 L ABG Potassium ABG Chloride 95.0 L ABG Glucose 437 H Carboxyhemoglobin Sodium Potassium Chloride Carbon Dioxide BUN Creatinine Glucose POC Glucose Lactic Acid Calcium Phosphorus Ferritin Total Bilirubin Direct Bilirubin AST ALT Lactate Dehydrogenase Total Creatine Kinase Troponin T Total Protein Albumin Triglycerides Arterial Blood Glucose 437 H Arterial Blood Ionized Calcium 4.3 L Urine pH Urine Creatinine Salicylates Acetaminophen Coronavirus (PCR) 09/12/20 09/12/20 09/12/20 04:21 05:20 06:37 WBC RBC Hgb Hct MCHC RDW Lymph % (Auto) Charles % (Auto) Lymph # (Auto) [place] # (Auto) Seg Neutrophils % Seg Neuts % (Manual) Lymphocytes % (Manual) Monocytes % (Manual) Nucleated RBC % Seg Neutrophils # Seg Neutrophils # Man Lymphocytes # (Manual) Monocytes # (Manual) PT INR D-Dimer ABG pH POC ABG pCO2 POC ABG pO2 ABG pO2 ABG HCO3 ABG Base Excess ABG Hemoglobin ABG Oxyhemoglobin ABG Sodium ABG Potassium ABG Chloride ABG Glucose Carboxyhemoglobin Sodium Potassium Chloride Carbon Dioxide BUN Creatinine Glucose POC Glucose 417 H 397 H 370 H Lactic Acid Calcium Phosphorus Ferritin Total Bilirubin Direct Bilirubin AST ALT Lactate Dehydrogenase Total Creatine Kinase Troponin T Total Protein Albumin Triglycerides Arterial Blood Glucose Arterial Blood Ionized Calcium Urine pH Urine Creatinine Salicylates Acetaminophen Coronavirus (PCR) 09/12/20 09/12/20 09/12/20 11:56 17:14 21:52 WBC RBC Hgb Hct MCHC RDW Lymph % (Auto) [place] % (Auto) Lymph # (Auto) [place] # (Auto) Seg Neutrophils % Seg Neuts % (Manual) Lymphocytes % (Manual) Monocytes % (Manual) Nucleated RBC % Seg Neutrophils # Seg Neutrophils # Man Lymphocytes # (Manual) Monocytes # (Manual) PT INR D-Dimer ABG pH POC ABG pCO2 POC ABG pO2 ABG pO2 ABG HCO3 ABG Base Excess ABG Hemoglobin ABG Oxyhemoglobin ABG Sodium ABG Potassium ABG Chloride ABG Glucose Carboxyhemoglobin Sodium Potassium Chloride Carbon Dioxide BUN Creatinine Glucose POC Glucose 341 H 325 H 285 H Lactic Acid Calcium Phosphorus Ferritin Total Bilirubin Direct Bilirubin AST ALT Lactate Dehydrogenase Total Creatine Kinase Troponin T Total Protein Albumin Triglycerides Arterial Blood Glucose Arterial Blood Ionized Calcium Urine pH Urine Creatinine Salicylates Acetaminophen Coronavirus (PCR) 09/12/20 09/12/20 09/12/20 23:39 Unknown Unknown WBC RBC Hgb Hct MCHC RDW Lymph % (Auto) [place] % (Auto) Lymph # (Auto) [place] # (Auto) Seg Neutrophils % Seg Neuts % (Manual) Lymphocytes % (Manual) Monocytes % (Manual) Nucleated RBC % Seg Neutrophils # Seg Neutrophils # Man Lymphocytes # (Manual) Monocytes # (Manual) PT INR D-Dimer ABG pH POC ABG pCO2 POC ABG pO2 ABG pO2 ABG HCO3 ABG Base Excess ABG Hemoglobin ABG Oxyhemoglobin ABG Sodium ABG Potassium ABG Chloride ABG Glucose Carboxyhemoglobin Sodium 135 L Potassium Chloride 92.2 L Carbon Dioxide BUN 65 H Creatinine 3.5 H Glucose 418 H POC Glucose 338 H Lactic Acid Calcium Phosphorus Ferritin Total Bilirubin Direct Bilirubin AST 553 H ALT 3453 H Lactate Dehydrogenase Total Creatine Kinase Troponin T Total Protein 5.9 L Albumin 3.0 L Triglycerides 220 H Arterial Blood Glucose Arterial Blood Ionized Calcium Urine pH Urine Creatinine Salicylates Acetaminophen Coronavirus (PCR) 09/13/20 09/13/20 09/13/20 04:47 05:24 10:50 WBC RBC Hgb Hct MCHC RDW Lymph % (Auto) [place] % (Auto) Lymph # (Auto) [place] # (Auto) Seg Neutrophils % Seg Neuts % (Manual) Lymphocytes % (Manual) Monocytes % (Manual) Nucleated RBC % Seg Neutrophils # Seg Neutrophils # Man Lymphocytes # (Manual) Monocytes # (Manual) PT INR D-Dimer ABG pH 7.571 H POC ABG pCO2 POC ABG pO2 69.0 L ABG pO2 ABG HCO3 ABG Base Excess ABG Hemoglobin 10.1 L ABG Oxyhemoglobin 93.2 L ABG Sodium 134.0 L ABG Potassium ABG Chloride ABG Glucose 365 H Carboxyhemoglobin 0.4 L Sodium Potassium Chloride 96.6 L Carbon Dioxide 32 H BUN 76 H Creatinine 3.1 H Glucose 395 H POC Glucose 329 H Lactic Acid Calcium Phosphorus Ferritin Total Bilirubin Direct Bilirubin AST ALT Lactate Dehydrogenase Total Creatine Kinase Troponin T Total Protein Albumin Triglycerides Arterial Blood Glucose 365 H Arterial Blood Ionized Calcium Urine pH Urine Creatinine Salicylates Acetaminophen Coronavirus (PCR) 09/13/20 09/13/20 09/13/20 11:39 17:48 23:35 WBC RBC Hgb Hct MCHC RDW Lymph % (Auto) [place] % (Auto) Lymph # (Auto) [place] # (Auto) Seg Neutrophils % Seg Neuts % (Manual) Lymphocytes % (Manual) Monocytes % (Manual) Nucleated RBC % Seg Neutrophils # Seg Neutrophils # Man Lymphocytes # (Manual) Monocytes # (Manual) PT INR D-Dimer ABG pH POC ABG pCO2 POC ABG pO2 ABG pO2 ABG HCO3 ABG Base Excess ABG Hemoglobin ABG Oxyhemoglobin ABG Sodium ABG Potassium ABG Chloride ABG Glucose Carboxyhemoglobin Sodium Potassium Chloride Carbon Dioxide BUN Creatinine Glucose POC Glucose 344 H 286 H 223 H Lactic Acid Calcium Phosphorus Ferritin Total Bilirubin Direct Bilirubin AST ALT Lactate Dehydrogenase Total Creatine Kinase Troponin T Total Protein Albumin Triglycerides Arterial Blood Glucose Arterial Blood Ionized Calcium Urine pH Urine Creatinine Salicylates Acetaminophen Coronavirus (PCR) 09/14/20 09/14/20 09/14/20 03:54 05:34 10:27 WBC RBC Hgb Hct MCHC RDW Lymph % (Auto) [place] % (Auto) Lymph # (Auto) [place] # (Auto) Seg Neutrophils % Seg Neuts % (Manual) Lymphocytes % (Manual) Monocytes % (Manual) Nucleated RBC % Seg Neutrophils # Seg Neutrophils # Man Lymphocytes # (Manual) Monocytes # (Manual) PT INR D-Dimer ABG pH POC ABG pCO2 POC ABG pO2 71.1 L ABG pO2 ABG HCO3 ABG Base Excess ABG Hemoglobin 10.3 L ABG Oxyhemoglobin ABG Sodium 135.2 L ABG Potassium ABG Chloride ABG Glucose 281 H Carboxyhemoglobin Sodium Potassium Chloride 96.6 L Carbon Dioxide BUN 100 H Creatinine 3.9 H Glucose 286 H POC Glucose 252 H Lactic Acid Calcium Phosphorus Ferritin Total Bilirubin Direct Bilirubin AST 145 H ALT 1400 H Lactate Dehydrogenase Total Creatine Kinase Troponin T Total Protein 5.6 L Albumin 2.9 L Triglycerides Arterial Blood Glucose 281 H Arterial Blood Ionized Calcium Urine pH Urine Creatinine Salicylates Acetaminophen Coronavirus (PCR) 09/14/20 09/14/20 09/14/20 11:38 17:52 23:07 WBC RBC Hgb Hct MCHC RDW Lymph % (Auto) [place] % (Auto) Lymph # (Auto) [place] # (Auto) Seg Neutrophils % Seg Neuts % (Manual) Lymphocytes % (Manual) Monocytes % (Manual) Nucleated RBC % Seg Neutrophils # Seg Neutrophils # Man Lymphocytes # (Manual) Monocytes # (Manual) PT INR D-Dimer ABG pH POC ABG pCO2 POC ABG pO2 ABG pO2 ABG HCO3 ABG Base Excess ABG Hemoglobin ABG Oxyhemoglobin ABG Sodium ABG Potassium ABG Chloride ABG Glucose Carboxyhemoglobin Sodium Potassium Chloride Carbon Dioxide BUN Creatinine Glucose POC Glucose 247 H 247 H 256 H Lactic Acid Calcium Phosphorus Ferritin Total Bilirubin Direct Bilirubin AST ALT Lactate Dehydrogenase Total Creatine Kinase Troponin T Total Protein Albumin Triglycerides Arterial Blood Glucose Arterial Blood Ionized Calcium Urine pH Urine Creatinine Salicylates Acetaminophen Coronavirus (PCR) 09/15/20 09/15/20 09/15/20 04:54 11:24 17:48 WBC RBC Hgb Hct MCHC RDW Lymph % (Auto) [place] % (Auto) Lymph # (Auto) [place] # (Auto) Seg Neutrophils % Seg Neuts % (Manual) Lymphocytes % (Manual) Monocytes % (Manual) Nucleated RBC % Seg Neutrophils # Seg Neutrophils # Man Lymphocytes # (Manual) Monocytes # (Manual) PT INR D-Dimer ABG pH POC ABG pCO2 POC ABG pO2 ABG pO2 ABG HCO3 ABG Base Excess ABG Hemoglobin ABG Oxyhemoglobin ABG Sodium ABG Potassium ABG Chloride ABG Glucose Carboxyhemoglobin Sodium Potassium Chloride Carbon Dioxide BUN Creatinine Glucose POC Glucose 271 H 228 H 254 H Lactic Acid Calcium Phosphorus Ferritin Total Bilirubin Direct Bilirubin AST ALT Lactate Dehydrogenase Total Creatine Kinase Troponin T Total Protein Albumin Triglycerides Arterial Blood Glucose Arterial Blood Ionized Calcium Urine pH Urine Creatinine Salicylates Acetaminophen Coronavirus (PCR) 09/15/20 09/15/20 09/15/20 19:20 19:20 23:13 WBC 27.3 H RBC 3.16 L Hgb 8.8 L Hct 27.0 L MCHC RDW 19.7 H Lymph % (Auto) [place] % (Auto) Lymph # (Auto) [place] # (Auto) Seg Neutrophils % Seg Neuts % (Manual) 81.0 H Lymphocytes % (Manual) 9.0 L Monocytes % (Manual) 10.0 H Nucleated RBC % Seg Neutrophils # Seg Neutrophils # Man 22.1 H Lymphocytes # (Manual) Monocytes # (Manual) 2.7 H PT INR D-Dimer ABG pH POC ABG pCO2 POC ABG pO2 ABG pO2 ABG HCO3 ABG Base Excess ABG Hemoglobin ABG Oxyhemoglobin ABG Sodium ABG Potassium ABG Chloride ABG Glucose Carboxyhemoglobin Sodium Potassium Chloride Carbon Dioxide BUN 68 H Creatinine 2.8 H Glucose 288 H POC Glucose 259 H Lactic Acid Calcium Phosphorus Ferritin Total Bilirubin Direct Bilirubin AST ALT Lactate Dehydrogenase Total Creatine Kinase Troponin T Total Protein Albumin Triglycerides Arterial Blood Glucose Arterial Blood Ionized Calcium Urine pH Urine Creatinine Salicylates Acetaminophen Coronavirus (PCR) 09/16/20 09/16/20 09/16/20 05:27 09:40 11:48 WBC RBC Hgb Hct MCHC RDW Lymph % (Auto) [place] % (Auto) Lymph # (Auto) [place] # (Auto) Seg Neutrophils % Seg Neuts % (Manual) Lymphocytes % (Manual) Monocytes % (Manual) Nucleated RBC % Seg Neutrophils # Seg Neutrophils # Man Lymphocytes # (Manual) Monocytes # (Manual) PT INR D-Dimer ABG pH POC ABG pCO2 POC ABG pO2 ABG pO2 ABG HCO3 ABG Base Excess ABG Hemoglobin ABG Oxyhemoglobin ABG Sodium ABG Potassium ABG Chloride ABG Glucose Carboxyhemoglobin Sodium Potassium Chloride Carbon Dioxide 31 H BUN 77 H Creatinine 2.9 H Glucose 250 H POC Glucose 275 H 234 H Lactic Acid Calcium Phosphorus Ferritin Total Bilirubin Direct Bilirubin AST ALT Lactate Dehydrogenase Total Creatine Kinase Troponin T Total Protein Albumin Triglycerides Arterial Blood Glucose Arterial Blood Ionized Calcium Urine pH Urine Creatinine Salicylates Acetaminophen Coronavirus (PCR) 09/16/20 09/16/20 09/17/20 17:40 23:23 00:01 WBC RBC Hgb Hct MCHC RDW Lymph % (Auto) [place] % (Auto) Lymph # (Auto) [place] # (Auto) Seg Neutrophils % Seg Neuts % (Manual) Lymphocytes % (Manual) Monocytes % (Manual) Nucleated RBC % Seg Neutrophils # Seg Neutrophils # Man Lymphocytes # (Manual) Monocytes # (Manual) PT INR D-Dimer ABG pH POC ABG pCO2 POC ABG pO2 ABG pO2 ABG HCO3 ABG Base Excess ABG Hemoglobin ABG Oxyhemoglobin ABG Sodium ABG Potassium ABG Chloride ABG Glucose Carboxyhemoglobin Sodium Potassium Chloride Carbon Dioxide BUN Creatinine Glucose POC Glucose 172 H 161 H Lactic Acid 2.10 H* Calcium Phosphorus Ferritin Total Bilirubin Direct Bilirubin AST ALT Lactate Dehydrogenase Total Creatine Kinase Troponin T Total Protein Albumin Triglycerides Arterial Blood Glucose Arterial Blood Ionized Calcium Urine pH Urine Creatinine Salicylates Acetaminophen Coronavirus (PCR) 09/17/20 09/17/20 09/17/20 04:00 04:00 05:09 WBC 19.5 H RBC 3.03 L Hgb 8.6 L Hct 26.3 L MCHC RDW 19.4 H Lymph % (Auto) 8.7 L [place] % (Auto) 13.7 H Lymph # (Auto) [place] # (Auto) 2.7 H Seg Neutrophils % 76.9 H Seg Neuts % (Manual) Lymphocytes % (Manual) Monocytes % (Manual) Nucleated RBC % Seg Neutrophils # 15.0 H Seg Neutrophils # Man Lymphocytes # (Manual) Monocytes # (Manual) PT INR D-Dimer ABG pH POC ABG pCO2 POC ABG pO2 ABG pO2 ABG HCO3 ABG Base Excess ABG Hemoglobin ABG Oxyhemoglobin ABG Sodium ABG Potassium ABG Chloride ABG Glucose Carboxyhemoglobin Sodium 146 H Potassium 3.1 L Chloride Carbon Dioxide BUN 79 H Creatinine 2.6 H Glucose 122 H POC Glucose 116 H Lactic Acid Calcium Phosphorus Ferritin Total Bilirubin Direct Bilirubin AST 64 H ALT 516 H Lactate Dehydrogenase Total Creatine Kinase Troponin T Total Protein 5.7 L Albumin 2.8 L Triglycerides Arterial Blood Glucose Arterial Blood Ionized Calcium Urine pH Urine Creatinine Salicylates Acetaminophen Coronavirus (PCR) 09/17/20 09/17/20 09/18/20 13:52 17:38 05:16 WBC RBC Hgb Hct MCHC RDW Lymph % (Auto) [place] % (Auto) Lymph # (Auto) [place] # (Auto) Seg Neutrophils % Seg Neuts % (Manual) Lymphocytes % (Manual) Monocytes % (Manual) Nucleated RBC % Seg Neutrophils # Seg Neutrophils # Man Lymphocytes # (Manual) Monocytes # (Manual) PT INR D-Dimer ABG pH POC ABG pCO2 POC ABG pO2 ABG pO2 ABG HCO3 ABG Base Excess ABG Hemoglobin ABG Oxyhemoglobin ABG Sodium ABG Potassium ABG Chloride ABG Glucose Carboxyhemoglobin Sodium Potassium Chloride Carbon Dioxide BUN Creatinine Glucose POC Glucose 68 L 126 H Lactic Acid 2.90 H* Calcium Phosphorus Ferritin Total Bilirubin Direct Bilirubin AST ALT Lactate Dehydrogenase Total Creatine Kinase Troponin T Total Protein Albumin Triglycerides Arterial Blood Glucose Arterial Blood Ionized Calcium Urine pH Urine Creatinine Salicylates Acetaminophen Coronavirus (PCR) 09/18/20 09/18/20 09/18/20 05:30 05:30 11:42 WBC 18.2 H RBC 3.18 L Hgb 9.0 L Hct 27.2 L MCHC RDW 18.8 H Lymph % (Auto) [place] % (Auto) Lymph # (Auto) [place] # (Auto) Seg Neutrophils % Seg Neuts % (Manual) Lymphocytes % (Manual) Monocytes % (Manual) Nucleated RBC % Seg Neutrophils # Seg Neutrophils # Man Lymphocytes # (Manual) Monocytes # (Manual) PT INR D-Dimer ABG pH POC ABG pCO2 POC ABG pO2 ABG pO2 ABG HCO3 ABG Base Excess ABG Hemoglobin ABG Oxyhemoglobin ABG Sodium ABG Potassium ABG Chloride ABG Glucose Carboxyhemoglobin Sodium Potassium 3.1 L Chloride Carbon Dioxide BUN 73 H Creatinine 2.6 H Glucose 154 H POC Glucose 140 H Lactic Acid Calcium Phosphorus Ferritin Total Bilirubin Direct Bilirubin AST ALT Lactate Dehydrogenase Total Creatine Kinase Troponin T Total Protein Albumin Triglycerides Arterial Blood Glucose Arterial Blood Ionized Calcium Urine pH Urine Creatinine Salicylates Acetaminophen Coronavirus (PCR) 09/18/20 09/18/20 09/19/20 18:15 23:37 05:13 WBC 22.8 H RBC 3.30 L Hgb 9.2 L Hct 28.1 L MCHC RDW 18.2 H Lymph % (Auto) [place] % (Auto) Lymph # (Auto) [place] # (Auto) Seg Neutrophils % Seg Neuts % (Manual) 87.0 H Lymphocytes % (Manual) 5.0 L Monocytes % (Manual) Nucleated RBC % Seg Neutrophils # Seg Neutrophils # Man 19.8 H Lymphocytes # (Manual) 1.1 L Monocytes # (Manual) 1.6 H PT INR D-Dimer ABG pH POC ABG pCO2 POC ABG pO2 ABG pO2 ABG HCO3 ABG Base Excess ABG Hemoglobin ABG Oxyhemoglobin ABG Sodium ABG Potassium ABG Chloride ABG Glucose Carboxyhemoglobin Sodium Potassium Chloride Carbon Dioxide BUN Creatinine Glucose POC Glucose 149 H 153 H Lactic Acid Calcium Phosphorus Ferritin Total Bilirubin Direct Bilirubin AST ALT Lactate Dehydrogenase Total Creatine Kinase Troponin T Total Protein Albumin Triglycerides Arterial Blood Glucose Arterial Blood Ionized Calcium Urine pH Urine Creatinine Salicylates Acetaminophen Coronavirus (PCR) 09/19/20 09/19/20 09/19/20 05:13 05:25 11:56 WBC RBC Hgb Hct MCHC RDW Lymph % (Auto) [place] % (Auto) Lymph # (Auto) [place] # (Auto) Seg Neutrophils % Seg Neuts % (Manual) Lymphocytes % (Manual) Monocytes % (Manual) Nucleated RBC % Seg Neutrophils # Seg Neutrophils # Man Lymphocytes # (Manual) Monocytes # (Manual) PT INR D-Dimer ABG pH POC ABG pCO2 POC ABG pO2 ABG pO2 ABG HCO3 ABG Base Excess ABG Hemoglobin ABG Oxyhemoglobin ABG Sodium ABG Potassium ABG Chloride ABG Glucose Carboxyhemoglobin Sodium Potassium Chloride Carbon Dioxide BUN 55 H Creatinine 2.3 H Glucose 196 H POC Glucose 168 H 137 H Lactic Acid Calcium Phosphorus Ferritin Total Bilirubin Direct Bilirubin AST ALT Lactate Dehydrogenase Total Creatine Kinase Troponin T Total Protein Albumin Triglycerides Arterial Blood Glucose Arterial Blood Ionized Calcium Urine pH Urine Creatinine Salicylates Acetaminophen Coronavirus (PCR) 09/19/20 09/19/20 09/20/20 17:43 23:43 05:02 WBC RBC Hgb Hct MCHC RDW Lymph % (Auto) [place] % (Auto) Lymph # (Auto) [place] # (Auto) Seg Neutrophils % Seg Neuts % (Manual) Lymphocytes % (Manual) Monocytes % (Manual) Nucleated RBC % Seg Neutrophils # Seg Neutrophils # Man Lymphocytes # (Manual) Monocytes # (Manual) PT INR D-Dimer ABG pH POC ABG pCO2 POC ABG pO2 ABG pO2 ABG HCO3 ABG Base Excess ABG Hemoglobin ABG Oxyhemoglobin ABG Sodium ABG Potassium ABG Chloride ABG Glucose Carboxyhemoglobin Sodium Potassium Chloride Carbon Dioxide BUN Creatinine Glucose POC Glucose 114 H 136 H 163 H Lactic Acid Calcium Phosphorus Ferritin Total Bilirubin Direct Bilirubin AST ALT Lactate Dehydrogenase Total Creatine Kinase Troponin T Total Protein Albumin Triglycerides Arterial Blood Glucose Arterial Blood Ionized Calcium Urine pH Urine Creatinine Salicylates Acetaminophen Coronavirus (PCR) 09/20/20 09/20/20 09/20/20 05:36 05:36 11:10 WBC 20.1 H RBC 3.07 L Hgb 8.5 L Hct 26.4 L MCHC RDW 18.6 H Lymph % (Auto) 9.6 L [place] % (Auto) 9.6 H Lymph # (Auto) [place] # (Auto) 1.9 H Seg Neutrophils % 79.0 H Seg Neuts % (Manual) Lymphocytes % (Manual) Monocytes % (Manual) Nucleated RBC % Seg Neutrophils # 15.9 H Seg Neutrophils # Man Lymphocytes # (Manual) Monocytes # (Manual) PT INR D-Dimer ABG pH POC ABG pCO2 POC ABG pO2 ABG pO2 ABG HCO3 ABG Base Excess ABG Hemoglobin ABG Oxyhemoglobin ABG Sodium ABG Potassium ABG Chloride ABG Glucose Carboxyhemoglobin Sodium Potassium 3.3 L Chloride Carbon Dioxide BUN 76 H Creatinine 3.6 H D Glucose 213 H POC Glucose 167 H Lactic Acid Calcium Phosphorus Ferritin Total Bilirubin Direct Bilirubin AST ALT Lactate Dehydrogenase Total Creatine Kinase Troponin T Total Protein Albumin Triglycerides Arterial Blood Glucose Arterial Blood Ionized Calcium Urine pH Urine Creatinine Salicylates Acetaminophen Coronavirus (PCR) 09/20/20 09/20/20 09/20/20 14:02 17:24 23:30 WBC RBC Hgb Hct MCHC RDW Lymph % (Auto) [place] % (Auto) Lymph # (Auto) [place] # (Auto) Seg Neutrophils % Seg Neuts % (Manual) Lymphocytes % (Manual) Monocytes % (Manual) Nucleated RBC % Seg Neutrophils # Seg Neutrophils # Man Lymphocytes # (Manual) Monocytes # (Manual) PT INR D-Dimer ABG pH POC ABG pCO2 POC ABG pO2 ABG pO2 ABG HCO3 ABG Base Excess ABG Hemoglobin ABG Oxyhemoglobin ABG Sodium ABG Potassium ABG Chloride ABG Glucose Carboxyhemoglobin Sodium Potassium Chloride Carbon Dioxide BUN Creatinine Glucose POC Glucose 164 H 146 H 147 H Lactic Acid Calcium Phosphorus Ferritin Total Bilirubin Direct Bilirubin AST ALT Lactate Dehydrogenase Total Creatine Kinase Troponin T Total Protein Albumin Triglycerides Arterial Blood Glucose Arterial Blood Ionized Calcium Urine pH Urine Creatinine Salicylates Acetaminophen Coronavirus (PCR) 09/21/20 09/21/20 09/21/20 05:00 05:00 05:24 WBC 17.4 H RBC 2.95 L Hgb 8.3 L Hct 25.8 L MCHC RDW 19.3 H Lymph % (Auto) 11.1 L [place] % (Auto) 11.1 H Lymph # (Auto) [place] # (Auto) 1.9 H Seg Neutrophils % 75.9 H Seg Neuts % (Manual) Lymphocytes % (Manual) Monocytes % (Manual) Nucleated RBC % Seg Neutrophils # 13.2 H Seg Neutrophils # Man Lymphocytes # (Manual) Monocytes # (Manual) PT INR D-Dimer ABG pH POC ABG pCO2 POC ABG pO2 ABG pO2 ABG HCO3 ABG Base Excess ABG Hemoglobin ABG Oxyhemoglobin ABG Sodium ABG Potassium ABG Chloride ABG Glucose Carboxyhemoglobin Sodium Potassium Chloride Carbon Dioxide BUN 60 H Creatinine 3.5 H Glucose 185 H POC Glucose 139 H Lactic Acid Calcium Phosphorus Ferritin Total Bilirubin Direct Bilirubin AST ALT Lactate Dehydrogenase Total Creatine Kinase Troponin T Total Protein Albumin Triglycerides Arterial Blood Glucose Arterial Blood Ionized Calcium Urine pH Urine Creatinine Salicylates Acetaminophen Coronavirus (PCR) 09/21/20 09/21/20 09/21/20 11:59 17:59 23:32 WBC RBC Hgb Hct MCHC RDW Lymph % (Auto) [place] % (Auto) Lymph # (Auto) [place] # (Auto) Seg Neutrophils % Seg Neuts % (Manual) Lymphocytes % (Manual) Monocytes % (Manual) Nucleated RBC % Seg Neutrophils # Seg Neutrophils # Man Lymphocytes # (Manual) Monocytes # (Manual) PT INR D-Dimer ABG pH POC ABG pCO2 POC ABG pO2 ABG pO2 ABG HCO3 ABG Base Excess ABG Hemoglobin ABG Oxyhemoglobin ABG Sodium ABG Potassium ABG Chloride ABG Glucose Carboxyhemoglobin Sodium Potassium Chloride Carbon Dioxide BUN Creatinine Glucose POC Glucose 183 H 141 H 162 H Lactic Acid Calcium Phosphorus Ferritin Total Bilirubin Direct Bilirubin AST ALT Lactate Dehydrogenase Total Creatine Kinase Troponin T Total Protein Albumin Triglycerides Arterial Blood Glucose Arterial Blood Ionized Calcium Urine pH Urine Creatinine Salicylates Acetaminophen Coronavirus (PCR) 09/22/20 09/22/20 09/22/20 05:32 12:07 17:53 WBC RBC Hgb Hct MCHC RDW Lymph % (Auto) [place] % (Auto) Lymph # (Auto) [place] # (Auto) Seg Neutrophils % Seg Neuts % (Manual) Lymphocytes % (Manual) Monocytes % (Manual) Nucleated RBC % Seg Neutrophils # Seg Neutrophils # Man Lymphocytes # (Manual) Monocytes # (Manual) PT INR D-Dimer ABG pH POC ABG pCO2 POC ABG pO2 ABG pO2 ABG HCO3 ABG Base Excess ABG Hemoglobin ABG Oxyhemoglobin ABG Sodium ABG Potassium ABG Chloride ABG Glucose Carboxyhemoglobin Sodium Potassium Chloride Carbon Dioxide BUN Creatinine Glucose POC Glucose 172 H 169 H 178 H Lactic Acid Calcium Phosphorus Ferritin Total Bilirubin Direct Bilirubin AST ALT Lactate Dehydrogenase Total Creatine Kinase Troponin T Total Protein Albumin Triglycerides Arterial Blood Glucose Arterial Blood Ionized Calcium Urine pH Urine Creatinine Salicylates Acetaminophen Coronavirus (PCR) 09/22/20 09/23/20 09/23/20 23:34 05:21 06:05 WBC RBC Hgb Hct MCHC RDW Lymph % (Auto) [place] % (Auto) Lymph # (Auto) [place] # (Auto) Seg Neutrophils % Seg Neuts % (Manual) Lymphocytes % (Manual) Monocytes % (Manual) Nucleated RBC % Seg Neutrophils # Seg Neutrophils # Man Lymphocytes # (Manual) Monocytes # (Manual) PT INR D-Dimer ABG pH POC ABG pCO2 POC ABG pO2 ABG pO2 ABG HCO3 ABG Base Excess ABG Hemoglobin ABG Oxyhemoglobin ABG Sodium ABG Potassium ABG Chloride ABG Glucose Carboxyhemoglobin Sodium 147 H Potassium Chloride 109.2 H Carbon Dioxide 21 L BUN 54 H Creatinine 4.2 H Glucose 193 H POC Glucose 151 H 168 H Lactic Acid Calcium Phosphorus Ferritin Total Bilirubin Direct Bilirubin AST ALT Lactate Dehydrogenase Total Creatine Kinase Troponin T Total Protein Albumin Triglycerides Arterial Blood Glucose Arterial Blood Ionized Calcium Urine pH Urine Creatinine Salicylates Acetaminophen Coronavirus (PCR) 09/23/20 09/23/20 09/23/20 12:30 17:52 23:16 WBC RBC Hgb Hct MCHC RDW Lymph % (Auto) [place] % (Auto) Lymph # (Auto) [place] # (Auto) Seg Neutrophils % Seg Neuts % (Manual) Lymphocytes % (Manual) Monocytes % (Manual) Nucleated RBC % Seg Neutrophils # Seg Neutrophils # Man Lymphocytes # (Manual) Monocytes # (Manual) PT INR D-Dimer ABG pH POC ABG pCO2 POC ABG pO2 ABG pO2 ABG HCO3 ABG Base Excess ABG Hemoglobin ABG Oxyhemoglobin ABG Sodium ABG Potassium ABG Chloride ABG Glucose Carboxyhemoglobin Sodium Potassium Chloride Carbon Dioxide BUN Creatinine Glucose POC Glucose 170 H 164 H 160 H Lactic Acid Calcium Phosphorus Ferritin Total Bilirubin Direct Bilirubin AST ALT Lactate Dehydrogenase Total Creatine Kinase Troponin T Total Protein Albumin Triglycerides Arterial Blood Glucose Arterial Blood Ionized Calcium Urine pH Urine Creatinine Salicylates Acetaminophen Coronavirus (PCR) 09/24/20 09/24/20 09/24/20 05:22 05:44 12:32 WBC RBC Hgb Hct MCHC RDW Lymph % (Auto) Charles % (Auto) Lymph # (Auto) Charles # (Auto) Seg Neutrophils % Seg Neuts % (Manual) Lymphocytes % (Manual) Monocytes % (Manual) Nucleated RBC % Seg Neutrophils # Seg Neutrophils # Man Lymphocytes # (Manual) Monocytes # (Manual) PT INR D-Dimer ABG pH POC ABG pCO2 POC ABG pO2 ABG pO2 ABG HCO3 ABG Base Excess ABG Hemoglobin ABG Oxyhemoglobin ABG Sodium ABG Potassium ABG Chloride ABG Glucose Carboxyhemoglobin Sodium 148 H Potassium Chloride 109.2 H Carbon Dioxide BUN 61 H Creatinine 4.9 H Glucose 176 H POC Glucose 150 H 165 H Lactic Acid Calcium Phosphorus Ferritin Total Bilirubin Direct Bilirubin AST ALT Lactate Dehydrogenase Total Creatine Kinase Troponin T Total Protein Albumin Triglycerides Arterial Blood Glucose Arterial Blood Ionized Calcium Urine pH Urine Creatinine Salicylates Acetaminophen Coronavirus (PCR) 09/24/20 09/24/20 09/25/20 17:28 23:18 05:18 WBC RBC Hgb Hct MCHC RDW Lymph % (Auto) Charles % (Auto) Lymph # (Auto) Charles # (Auto) Seg Neutrophils % Seg Neuts % (Manual) Lymphocytes % (Manual) Monocytes % (Manual) Nucleated RBC % Seg Neutrophils # Seg Neutrophils # Man Lymphocytes # (Manual) Monocytes # (Manual) PT INR D-Dimer ABG pH POC ABG pCO2 POC ABG pO2 ABG pO2 ABG HCO3 ABG Base Excess ABG Hemoglobin ABG Oxyhemoglobin ABG Sodium ABG Potassium ABG Chloride ABG Glucose Carboxyhemoglobin Sodium 149 H Potassium 3.3 L Chloride 109.6 H Carbon Dioxide BUN 70 H Creatinine 5.6 H Glucose 196 H POC Glucose 153 H 177 H Lactic Acid Calcium Phosphorus Ferritin Total Bilirubin Direct Bilirubin AST 55 H ALT 74 H Lactate Dehydrogenase Total Creatine Kinase Troponin T Total Protein Albumin 2.6 L Triglycerides Arterial Blood Glucose Arterial Blood Ionized Calcium Urine pH Urine Creatinine Salicylates Acetaminophen Coronavirus (PCR) 09/25/20 09/25/20 09/25/20 05:18 11:47 17:04 WBC RBC Hgb Hct MCHC RDW Lymph % (Auto) Charles % (Auto) Lymph # (Auto) Charles # (Auto) Seg Neutrophils % Seg Neuts % (Manual) Lymphocytes % (Manual) Monocytes % (Manual) Nucleated RBC % Seg Neutrophils # Seg Neutrophils # Man Lymphocytes # (Manual) Monocytes # (Manual) PT INR D-Dimer ABG pH POC ABG pCO2 POC ABG pO2 ABG pO2 ABG HCO3 ABG Base Excess ABG Hemoglobin ABG Oxyhemoglobin ABG Sodium ABG Potassium ABG Chloride ABG Glucose Carboxyhemoglobin Sodium Potassium Chloride Carbon Dioxide BUN Creatinine Glucose POC Glucose 159 H 169 H 142 H Lactic Acid Calcium Phosphorus Ferritin Total Bilirubin Direct Bilirubin AST ALT Lactate Dehydrogenase Total Creatine Kinase Troponin T Total Protein Albumin Triglycerides Arterial Blood Glucose Arterial Blood Ionized Calcium Urine pH Urine Creatinine Salicylates Acetaminophen Coronavirus (PCR) 09/25/20 09/26/20 09/26/20 23:20 04:00 05:00 WBC RBC 2.93 L Hgb 8.5 L Hct 25.8 L MCHC RDW 18.5 H Lymph % (Auto) Charles % (Auto) 11.3 H Lymph # (Auto) Charles # (Auto) 1.1 H Seg Neutrophils % 72.0 H Seg Neuts % (Manual) Lymphocytes % (Manual) Monocytes % (Manual) Nucleated RBC % Seg Neutrophils # Seg Neutrophils # Man Lymphocytes # (Manual) Monocytes # (Manual) PT INR D-Dimer ABG pH POC ABG pCO2 POC ABG pO2 ABG pO2 ABG HCO3 ABG Base Excess ABG Hemoglobin ABG Oxyhemoglobin ABG Sodium ABG Potassium ABG Chloride ABG Glucose Carboxyhemoglobin Sodium Potassium 3.4 L Chloride Carbon Dioxide BUN 49 H Creatinine 4.4 H Glucose 179 H POC Glucose 138 H Lactic Acid Calcium Phosphorus Ferritin Total Bilirubin Direct Bilirubin AST ALT Lactate Dehydrogenase Total Creatine Kinase Troponin T Total Protein Albumin Triglycerides Arterial Blood Glucose Arterial Blood Ionized Calcium Urine pH Urine Creatinine Salicylates Acetaminophen Coronavirus (PCR) 09/26/20 05:18 WBC RBC Hgb Hct MCHC RDW Lymph % (Auto) Charles % (Auto) Lymph # (Auto) Charles # (Auto) Seg Neutrophils % Seg Neuts % (Manual) Lymphocytes % (Manual) Monocytes % (Manual) Nucleated RBC % Seg Neutrophils # Seg Neutrophils # Man Lymphocytes # (Manual) Monocytes # (Manual) PT INR D-Dimer ABG pH POC ABG pCO2 POC ABG pO2 ABG pO2 ABG HCO3 ABG Base Excess ABG Hemoglobin ABG Oxyhemoglobin ABG Sodium ABG Potassium ABG Chloride ABG Glucose Carboxyhemoglobin Sodium Potassium Chloride Carbon Dioxide BUN Creatinine Glucose POC Glucose 155 H Lactic Acid Calcium Phosphorus Ferritin Total Bilirubin Direct Bilirubin AST ALT Lactate Dehydrogenase Total Creatine Kinase Troponin T Total Protein Albumin Triglycerides Arterial Blood Glucose Arterial Blood Ionized Calcium Urine pH Urine Creatinine Salicylates Acetaminophen Coronavirus (PCR)
--- NOTE | 2020-09-26 13:00 | Event Note ---
Date: 09/26/20 Called to update her on Current breathing state. Also let her know that CM was starting the process of looking for facilities to accept him in the event he is weaned from the ventilator.
--- NOTE | 2020-09-26 17:26 | Progress Note ---
Assessment and Plan Impression: * Nonoliguric RYAN secondary to ATN * Severe hyperkalemia - resolved * COVID 19 PNA * s/p OOH cardiac arrest * Acute hypoxic respiratory failure * Seizure activity * Anemia * Hypernatremia Plan: * Patient is s/p emergent HD - 09/08 * Continue MWF for now, due tomorrow creatinine continues to uptrend off HD indicating minimal renal recovery and need for ongoing HD * Does remain non-oliguric however, 500cc urine output over past 24 hours * Check labs daily * Strict I/O * Will continue to monitor for renal recovery * Keep MAP > 65 * Vent management per CCM * Steroids per primary team/ID * Dose medications for renal function * Avoid potential nephrotoxins * Prognosis is guarded Subjective Date of service: 09/26/20 Principal diagnosis: Abnormal LFTs, s/p cardiac arrest, acute kidney injury with ATN Interval history: On CPAP via T-piece, FiO2 30%, no acute issues noted Reviewed chart extensively including primary and specialist team notes Objective - Exam Narrative Exam: Direct examination deferred to avoid PPE overuse in COVID-19 pandemic. Seen through ICU window, ventilated on trach. - Vital Signs Vital signs: Vital Signs - 12hr 09/26/20 09/26/20 09/26/20 05:30 05:37 05:45 Temperature Pulse Rate 52 L 53 L 55 L Pulse Rate [ From Monitor] Respiratory 15 16 Rate Blood Pressure 131/70 131/70 132/67 O2 Sat by Pulse 100 100 Oximetry O2 Sat by Pulse Oximetry [ Assessment] 09/26/20 09/26/20 09/26/20 06:00 06:15 06:30 Temperature Pulse Rate 55 L 58 L 58 L Pulse Rate [ From Monitor] Respiratory 20 19 17 Rate Blood Pressure 137/67 136/64 129/65 O2 Sat by Pulse 100 100 100 Oximetry O2 Sat by Pulse Oximetry [ Assessment] 09/26/20 09/26/20 09/26/20 06:45 07:00 07:15 Temperature 97.4 F L Pulse Rate 57 L 57 L 59 L Pulse Rate [ From Monitor] Respiratory 15 16 18 Rate Blood Pressure 124/63 128/63 137/65 O2 Sat by Pulse 100 100 100 Oximetry O2 Sat by Pulse Oximetry [ Assessment] 09/26/20 09/26/20 09/26/20 07:31 07:45 07:48 Temperature Pulse Rate 57 L 58 L 59 L Pulse Rate [ From Monitor] Respiratory 23 22 Rate Blood Pressure 138/72 135/71 135/71 O2 Sat by Pulse 100 100 100 Oximetry O2 Sat by Pulse Oximetry [ Assessment] 09/26/20 09/26/20 09/26/20 07:54 08:00 08:15 Temperature Pulse Rate 58 L 57 L Pulse Rate [ From Monitor] Respiratory 23 15 Rate Blood Pressure 136/76 136/73 O2 Sat by Pulse 100 100 Oximetry O2 Sat by Pulse 100 Oximetry [ Assessment] 09/26/20 09/26/20 09/26/20 08:31 08:45 09:00 Temperature Pulse Rate 57 L 55 L 54 L Pulse Rate [ From Monitor] Respiratory 15 16 16 Rate Blood Pressure 137/74 141/74 147/74 O2 Sat by Pulse 100 100 100 Oximetry O2 Sat by Pulse Oximetry [ Assessment] 09/26/20 09/26/20 09/26/20 09:15 09:30 09:45 Temperature Pulse Rate 55 L 54 L 55 L Pulse Rate [ From Monitor] Respiratory 22 14 22 Rate Blood Pressure 137/75 145/78 146/74 O2 Sat by Pulse 100 100 100 Oximetry O2 Sat by Pulse Oximetry [ Assessment] 09/26/20 09/26/20 09/26/20 10:01 10:15 10:31 Temperature Pulse Rate 52 L 54 L 53 L Pulse Rate [ From Monitor] Respiratory 13 22 25 H Rate Blood Pressure 142/72 144/71 156/68 O2 Sat by Pulse 100 100 100 Oximetry O2 Sat by Pulse Oximetry [ Assessment] 09/26/20 09/26/20 09/26/20 10:45 10:48 11:00 Temperature Pulse Rate 53 L 54 L Pulse Rate [ From Monitor] Respiratory 33 H 32 H Rate Blood Pressure 149/68 144/67 O2 Sat by Pulse 99 100 98 Oximetry O2 Sat by Pulse Oximetry [ Assessment] 09/26/20 09/26/20 09/26/20 11:15 11:25 11:31 Temperature Pulse Rate 53 L 52 L Pulse Rate [ From Monitor] Respiratory 32 H 30 H Rate Blood Pressure 143/69 149/70 O2 Sat by Pulse 99 98 Oximetry O2 Sat by Pulse 99 Oximetry [ Assessment] 09/26/20 09/26/20 09/26/20 11:45 12:00 12:15 Temperature 98.5 F Pulse Rate 52 L 52 L 53 L Pulse Rate [ From Monitor] Respiratory 33 H 29 H 31 H Rate Blood Pressure 142/71 149/73 153/68 O2 Sat by Pulse 98 98 100 Oximetry O2 Sat by Pulse Oximetry [ Assessment] 09/26/20 09/26/20 09/26/20 12:30 12:45 13:01 Temperature Pulse Rate 53 L 54 L 54 L Pulse Rate [ From Monitor] Respiratory 27 H 23 33 H Rate Blood Pressure 146/65 139/91 128/66 O2 Sat by Pulse 100 100 99 Oximetry O2 Sat by Pulse Oximetry [ Assessment] 09/26/20 09/26/20 09/26/20 13:15 13:30 13:45 Temperature Pulse Rate 53 L 57 L 54 L Pulse Rate [ From Monitor] Respiratory 25 H 32 H 30 H Rate Blood Pressure 133/66 127/63 138/58 O2 Sat by Pulse 99 99 Oximetry O2 Sat by Pulse Oximetry [ Assessment] 09/26/20 09/26/20 09/26/20 14:01 14:15 14:30 Temperature Pulse Rate 54 L 54 L 54 L Pulse Rate [ From Monitor] Respiratory 31 H 32 H 34 H Rate Blood Pressure 133/68 129/68 129/67 O2 Sat by Pulse 100 100 100 Oximetry O2 Sat by Pulse Oximetry [ Assessment] 09/26/20 09/26/20 09/26/20 14:45 15:00 15:04 Temperature Pulse Rate 55 L 54 L Pulse Rate [ From Monitor] Respiratory 28 H 33 H Rate Blood Pressure 137/67 132/68 O2 Sat by Pulse 100 100 100 Oximetry O2 Sat by Pulse Oximetry [ Assessment] 09/26/20 09/26/20 09/26/20 15:05 15:15 15:31 Temperature Pulse Rate 54 L 56 L Pulse Rate [ From Monitor] Respiratory 32 H 32 H Rate Blood Pressure 132/65 130/63 O2 Sat by Pulse 100 99 99 Oximetry O2 Sat by Pulse Oximetry [ Assessment] 09/26/20 09/26/20 09/26/20 15:45 16:00 16:15 Temperature 98.3 F Pulse Rate 54 L 54 L 54 L Pulse Rate [ 56 L From Monitor] Respiratory 31 H 28 H 30 H Rate Blood Pressure 137/69 133/69 132/69 O2 Sat by Pulse 100 100 100 Oximetry O2 Sat by Pulse Oximetry [ Assessment] - Lab 09/26/20 04:00 09/26/20 05:00 Most recent lab results ABG pH 7.442 (7.320-7.450) 09/14/20 03:54 ABG pCO2 33.4 mm Hg 09/11/20 05:40 ABG pO2 112.1 mm Hg (80.0-90.0) H 09/11/20 05:40 ABG HCO3 28.1 mmol/L (20.0-26.0) H 09/11/20 05:40 ABG O2 Saturation 98.4 % (95.0-99.0) 09/11/20 05:40 Calcium 8.9 mg/dL (8.4-10.2) 09/26/20 05:00 Phosphorus 8.00 mg/dL (2.5-4.5) H 09/08/20 12:02 Magnesium 1.80 mg/dL (1.7-2.3) 09/08/20 12:02 Urine Creatinine 182.4 mg/dL (0.1-20.0) H 09/08/20 Unknown Urine Sodium 40 mmol/L 09/08/20 Unknown Medications & Allergies - Medications Allergies/Adverse Reactions: Allergies No Known Allergies Allergy (Verified 09/21/20 21:00) Verified with , no known drug allergies. Home Medications: Home Medications Medication Instructions Recorded Confirmed Last Taken Type Albuterol Sulfate 60 mcg IH PRN 09/11/20 09/11/20 Unknown History Cholecalciferol (Vitamin D3) 25 tab PO DAILY 09/11/20 09/11/20 Unknown History Cozaar 25 tab PO DAILY 09/11/20 09/11/20 Unknown History HumaLOG 14 unit SQ AC 09/11/20 09/11/20 Unknown History Hydralazine HCl 50 tab PO TID 09/11/20 09/11/20 Unknown History Isosorbide Dinitrate 30 mg PO DAILY 09/11/20 09/11/20 Unknown History Lantus VIAL 54 units SQ HS 09/11/20 09/11/20 Unknown History Lasix 20 tab PO DAILY 09/11/20 09/11/20 Unknown History Nifedipine 30 tab PO DAILY 09/11/20 09/11/20 Unknown History Active Medications: Generic Name Dose Route Start Last Admin Trade Name Freq PRN Reason Stop Dose Admin Acetaminophen 400 mg 09/10/20 20:50 09/14/20 23:38 Acetaminophen 325 Mg/10.15 Ml Oral Liqd Unit Dose PO 400 mg Q4HR PRN Administration Non Cardiac Pain or Temp>100.5 Lipase/Protease/Amylase 1 each 09/09/20 09:40 Lipase 10,500/Protease 25,000/Amylase 43,750 (Units) Dr Armenta FEEDTUBE PRN PRN For Clogged Feeding Tube Famotidine 20 mg 09/20/20 11:00 09/26/20 09:48 Famotidine 20 Mg/2 Ml Inj IV 20 mg DAILY TAYLOR Administration Hydralazine HCl 50 mg 09/23/20 14:00 09/26/20 14:01 Hydralazine 25 Mg Tab PO 50 mg Q8HR TAYLOR Administration Hydrophilic Ointment 1 applic 09/07/20 13:08 Lip Therapy Vaseline TP Q2HR PRN Dry Lips Sodium Chloride 100 mls @ 999 mls/hr 09/09/20 13:36 Nacl 0.9% IV JAYJAY PRN Hypotension Levetiracetam 1,500 mg/ 115 mls @ 400 mls/hr 09/11/20 10:00 09/26/20 09:48 Dextrose IV 400 mls/hr BID TAYLOR Administration Valproate Sodium 1,000 mg/ 110 mls @ 100 mls/hr 09/14/20 22:00 09/26/20 09:49 Sodium Chloride IV 100 mls/hr Q12HR TAYLOR Administration Insulin Human Lispro 0 unit 09/12/20 12:00 09/26/20 12:38 Insulin Lispro 100 Unit/Ml SUB-Q 3 unit Q6HR TAYLOR Administration Protocol Lansoprazole 30 mg 09/11/20 11:00 09/19/20 22:04 Lansoprazole 30 Mg Solutab FEEDTUBE 30 mg BID TAYLOR Administration Lorazepam 2 mg 09/08/20 00:14 09/14/20 13:36 Lorazepam 2 Mg/Ml Vial IV 2 mg Q4H PRN Administration Seizures Metoclopramide HCl 5 mg 09/22/20 12:00 09/26/20 12:37 Metoclopramide 10 Mg/2 Ml Inj IV 5 mg Q6HR TAYLOR Administration Multi-Ingred Cream/Lotion/Oil/Oint 1 applic 09/07/20 13:08 09/20/20 10:50 Mineral Oil/Petrolatum, White Ophth Oint 3.5 Gm OU 1 applic Q4HR PRN Administration Dry Eye(s) Multivitamins 5 ml 09/09/20 12:00 09/26/20 09:48 Multivitamins 5 Ml Oral Liquid PO 5 ml QDAY TAYLOR Administration Ondansetron HCl 4 mg 09/07/20 17:55 09/19/20 04:00 Ondansetron 4 Mg/2 Ml Inj IV 4 mg Q8H PRN Administration Nausea And Vomiting Senna/Docusate Sodium 2 tab 09/20/20 11:00 Sennosides/Docusate Sodium 8.6/50 Mg Tab PO BID PRN Laxative Effect Simple Syrup 15 ml 09/09/20 09:40 09/17/20 17:43 Simple Syrup 15 Ml FEEDTUBE 15 ml PRN PRN Administration Hypoglycemia Simple Syrup 30 ml 09/09/20 09:40 Simple Syrup 15 Ml FEEDTUBE PRN PRN Hypoglycemia Sodium Bicarbonate 325 mg 09/09/20 09:40 Sodium Bicarbonate 325 Mg Tab FEEDTUBE PRN PRN For Clogged Feeding Tube Sodium Chloride 10 ml 09/07/20 22:00 09/26/20 09:50 Sodium Chloride 0.9% 10 Ml Flush Syringe IV 10 ml BID TAYLOR Administration Sodium Chloride 10 ml 09/07/20 17:55 Sodium Chloride 0.9% 10 Ml Flush Syringe IV PRN PRN LINE FLUSH
[2020-09-27] MEDS: INSULIN LISPRO 100 UNIT/ML SUB-Q SCH ×5 (00:38→23:43)
[2020-09-27] MEDS: METOCLOPRAMIDE 10 MG/2 ML INJ IV SCH ×2 (01:40→06:11)
[2020-09-27 05:17] LABS: Basophils % (Auto) 0.3 % (0.0-1.8); Eosinophils # (Auto) 0.2 K/mm3 (0.0-0.4); Hematocrit 28.6 % (35.5-45.6); Hemoglobin 9.3 gm/dl (11.8-15.2); Lymphocytes # (Auto) 1.7 K/mm3 (1.2-5.4); Lymphocytes % (Auto) 19.7 % (13.4-35.0); Mean Corpuscular HGB Conc 32 % (32-34); Mean Corpuscular Volume 88 fl (84-94); Monocytes % (Auto) 11.6 % (0.0-7.3); Platelet Count 208 K/mm3 (140-440); Red Blood Count 3.24 M/mm3 (3.65-5.03); Red Cell Distribution Width 18.2 % (13.2-15.2)
[2020-09-27 05:29] LABS: Calcium 9.1 mg/dL (8.4-10.2)
[2020-09-27] MEDS: hydrALAZINE 25 MG TAB PO SCH ×3 (06:12→21:13)
[2020-09-27] MEDS: VALPROATE SODIUM 1,000 MG in SODIUM CHLORIDE 0.9% 100 ML IV SCH ×2 (09:33→21:14)
[2020-09-27] MEDS: MULTIVITAMINS 5 ML ORAL LIQUID PO SCH (09:33)
[2020-09-27] MEDS: levETIRAcetam 1,500 MG in DEXTROSE 5% IN WATER 100 ML IV SCH ×2 (09:33→21:13)
[2020-09-27] MEDS ORDERED: LANSOPRAZOLE 30 MG SOLUTAB FEEDTUBE ONE (09:35)
[2020-09-27] MEDS: LANSOPRAZOLE 30 MG SOLUTAB FEEDTUBE SCH ×2 (09:37→21:13)
--- NOTE | 2020-09-27 10:26 | Progress Note ---
Assessment and Plan Assessment and plan: S/p cardiopulmonary arrest Toxic metabolic encephalopathy +/-anoxic injury Acute hypoxic respiratory failure Acute kidney injury Seizure disorder Hyperkalemia COVID-19 pneumonia Sepsis Transaminitis Morbid obesity. 09/15/2020. MRI brain for further evaluation. Continue AEDs of valproic acid and Keppra. Continue hemodialysis per nephrology recommendations. Overall prognosis remains guarded and poor. 09/16/2020. ID recommends continue to monitor patient off of antibiotics. Fever most likely of central etiology. Patient with questionable seizures versus myoclonus from anoxic brain injury. Patient unable to undergo MRI due to body habitus. Continue AEDs per neurology recommendations. Inflammatory markers elevated. Patient was recently hospitalized for COVID-19 pneumonia at [facility] prior to being hospitalized here. Patient not a candidate for remdesivir due to hepatic and renal failure. Viral hepatitis panel negative. Overall prognosis extremely poor. 09/17/2020. Fevers have resolved over the past 48 hours. Continue to monitor off antibiotics per ID recommendations. Patient with questionable seizures versus myoclonus from anoxic brain injury. Patient unable to undergo MRI due to body habitus. EEG is nonspecific but given CT of head findings consistent with anoxic encephalopathy, brain injury. Continue AEDs per neurology recommendations. Inflammatory markers elevated. Patient was recently hospitalized for COVID-19 pneumonia at the [facility] prior to being hospitalized here. Patient not a candidate for remdesivir due to hepatic and renal failure. Viral hepatitis panel negative. Patient is s/p emergent HD on Friday (hyperK) and Friday - 09/08. Patient also S/p HD 09/15. Continue hemodialysis per nephrology recommendations. Patient currently on AC/PRVC mode ventilation with rate of 30, tidal volume 475, FiO2 30% and PEEP of 6. As stated in neuro note, overall prognosis is very poor. 09/18/2020. Fevers have resolved over the past 72 hours. Continue to monitor off antibiotics per ID recommendations. Leukocytosis persistent for the past 4 days. Patient with questionable seizures/myoclonus from anoxic brain injury. Patient unable to undergo MRI due to body habitus. EEG is nonspecific but given CT of head findings consistent with anoxic encephalopathy, brain injury. Continue AEDs per neurology recommendations. Inflammatory markers elevated. Patient was recently hospitalized for COVID-19 pneumonia at the [facility] prior to being hospitalized here. Patient not a candidate for remdesivir due to hepatic and renal failure. Viral hepatitis panel negative. Patient currently on AC/PRVC mode ventilation with rate of 30, tidal volume 475, FiO2 30% and PEEP of 6. Overall prognosis remains guarded/poor. 09/19/2020 Fevers have resolved over the past 4 days. Continue to monitor off antibiotics per ID recommendations. Leukocytosis persistent for the past 4 days. Patient with questionable seizures/myoclonus from anoxic brain injury. Patient unable to undergo MRI due to body habitus. EEG is nonspecific but given CT of head findings consistent with anoxic encephalopathy, brain injury. Continue AEDs per neurology recommendations. Inflammatory markers elevated. Patient was recently hospitalized for COVID-19 pneumonia at the [facility] prior to being hospitalized here. Patient not a candidate for remdesivir due to hepatic and renal failure. Viral hepatitis panel negative. Patient currently on AC/PRVC mode ventilation with rate of 30, tidal volume 475, FiO2 30% and PEEP of 6. Overall prognosis remains guarded/poor. 09/20/2020 -Surgery consulted for PEG and trach, will continue to follow. 09/21/2020; patient will have PEG and trach by Dr. hayes today. Prognosis is poor. Continue with current management. Founding Partner is following for vent management. 09/22/2020; patient had PEG and trach yesterday. 09/23/2020; continue PEG Tube Feeding. 09/24/2020; continue PEG tube feeding, patient is on Keppra, lorazepam and phenytoin per neurology recommendation. Patient is on hemodialysis and nephrology is following. Management of mechanical ventilation for CCM. 09/25/2020. Continue PEG tube feeding, patient is on Keppra, lorazepam and phenytoin per neurology recommendation. Patient is on hemodialysis and nephrology is following. Management of mechanical ventilation for CCM. Continue PSV/CPAP 12/6. Continue tracheostomy care, secretion control and airway management. 09/26/2020. Patient has tolerated PSV for approximately 48 hours. I discussed with pulmonary possibility of T-piece today. Continue tracheostomy care, sec retion control and airway management. If patient tolerates T-piece trials, patient will be transferred to the floor. Continue AEDs of Keppra and phenytoin as well as Ativan as needed per neurology recommendations. Continue hemodialysis per nephrology. Continue TF with aspiration precautions. 09/27/2020. Patient continues to tolerate PSV 12/6 at 30% FiO2. T-piece trials per pulmonary. ontinue tracheostomy care, secretion control and airway management. Continue AEDs of Keppra and phenytoin as well as Ativan as needed per neurology recommendations. Continue hemodialysis per nephrology. Continue TF with aspiration precautions. The high probability of a clinically significant, sudden or life threatening deterioration of the [cardiac, respiratory and neurological] system(s) required my full and direct attention, intervention and personal management. The aggregate critical care time was [31] minutes. This time is in addition to time spent performing reported procedures but includes the following: [x] Data Review and interpretation [x] Patient assessment and monitoring of vital signs [x] Documentation [x] Medication orders and management History Interval history: 65 y/o male with out of hospital cardiac arrest, acute hypoxic respiratory failure and COVID-19 infection. Hospitalist Physical - Constitutional Vitals: Temp Pulse Resp BP Pulse Ox 98.3 F 57 L 27 H 143/71 100 09/27/20 09:53 09/27/20 10:15 09/27/20 10:01 09/27/20 10:15 09/27/20 10:01 General appearance: Present: other (On mechanical ventilation) - EENT Eyes: Present: PERRL, EOM intact ENT: hearing intact, clear oral mucosa, dentition normal - Neck Neck: Present: supple, normal ROM - Respiratory Respiratory effort: normal Respiratory: bilateral: CTA - Cardiovascular Rhythm: regular Heart Sounds: Present: S1 & S2. Absent: gallop, rub - Extremities Extremities: no ischemia, No edema, Full ROM - Abdominal General gastrointestinal: soft, non-tender, non-distended, normal bowel sounds - Integumentary Integumentary: Present: clear, warm, dry - Neurologic Neurologic: CNII-XII intact, moves all extremities HEART Score - HEART Score Troponin: Troponin T 0.076 ng/mL (0.00-0.029) H 09/07/20 14:00 Results - Labs CBC & Chem 7: 09/27/20 04:47 09/27/20 04:47 Labs: Laboratory Last Values WBC 8.5 K/mm3 (4.5-11.0) 09/27/20 04:47 RBC 3.24 M/mm3 (3.65-5.03) L 09/27/20 04:47 Hgb 9.3 gm/dl (11.8-15.2) L 09/27/20 04:47 Hct 28.6 % (35.5-45.6) L 09/27/20 04:47 MCV 88 fl (84-94) 09/27/20 04:47 MCH 29 pg (28-32) 09/27/20 04:47 MCHC 32 % (32-34) 09/27/20 04:47 RDW 18.2 % (13.2-15.2) H 09/27/20 04:47 Plt Count 208 K/mm3 (140-440) 09/27/20 04:47 Lymph % (Auto) 19.7 % (13.4-35.0) 09/27/20 04:47 Drew % (Auto) 11.6 % (0.0-7.3) H 09/27/20 04:47 Eos % (Auto) 2.0 % (0.0-4.3) 09/27/20 04:47 Baso % (Auto) 0.3 % (0.0-1.8) 09/27/20 04:47 Lymph # (Auto) 1.7 K/mm3 (1.2-5.4) 09/27/20 04:47 Drew # (Auto) 1.0 K/mm3 (0.0-0.8) H 09/27/20 04:47 Eos # (Auto) 0.2 K/mm3 (0.0-0.4) 09/27/20 04:47 Baso # (Auto) 0.0 K/mm3 (0.0-0.1) 09/27/20 04:47 Add Manual Diff Complete 09/19/20 05:13 Total Counted 100 09/19/20 05:13 Seg Neutrophils % 66.4 % (40.0-70.0) 09/27/20 04:47 Seg Neuts % (Manual) 87.0 % (40.0-70.0) H 09/19/20 05:13 Band Neutrophils % 1.0 % 09/19/20 05:13 Lymphocytes % (Manual) 5.0 % (13.4-35.0) L 09/19/20 05:13 Monocytes % (Manual) 7.0 % (0.0-7.3) 09/19/20 05:13 Eosinophils % (Manual) 2.0 % (0.0-4.3) 09/07/20 14:00 Metamyelocytes % 2.0 % 09/08/20 Unknown Nucleated RBC % Not Reportable 09/19/20 05:13 Seg Neutrophils # 5.6 K/mm3 (1.8-7.7) 09/27/20 04:47 Seg Neutrophils # Man 19.8 K/mm3 (1.8-7.7) H 09/19/20 05:13 Band Neutrophils # 0.2 K/mm3 09/19/20 05:13 Lymphocytes # (Manual) 1.1 K/mm3 (1.2-5.4) L 09/19/20 05:13 Abs React Lymphs (Man) 0.0 K/mm3 09/19/20 05:13 Monocytes # (Manual) 1.6 K/mm3 (0.0-0.8) H 09/19/20 05:13 Eosinophils # (Manual) 0.0 K/mm3 (0.0-0.4) 09/19/20 05:13 Basophils # (Manual) 0.0 K/mm3 (0.0-0.1) 09/19/20 05:13 Metamyelocytes # 0.0 K/mm3 09/19/20 05:13 Myelocytes # 0.0 K/mm3 09/19/20 05:13 Promyelocytes # 0.0 K/mm3 09/19/20 05:13 Blast Cells # 0.0 K/mm3 09/19/20 05:13 WBC Morphology Not Reportable 09/19/20 05:13 Hypersegmented Neuts Not Reportable 09/19/20 05:13 Hyposegmented Neuts Not Reportable 09/19/20 05:13 Hypogranular Neuts Not Reportable 09/19/20 05:13 Smudge Cells Not Reportable 09/19/20 05:13 Toxic Granulation Not Reportable 09/19/20 05:13 Toxic Vacuolation Not Reportable 09/19/20 05:13 Dohle Bodies Not Reportable 09/19/20 05:13 Pelger-Huet Anomaly Not Reportable 09/19/20 05:13 Justus Rods Not Reportable 09/19/20 05:13 Platelet Estimate Consistent w auto 09/19/20 05:13 Clumped Platelets Not Reportable 09/19/20 05:13 Plt Clumps, EDTA Not Reportable 09/19/20 05:13 Large Platelets Not Reportable 09/19/20 05:13 Giant Platelets Not Reportable 09/19/20 05:13 Platelet Satelliting Not Reportable 09/19/20 05:13 Plt Morphology Comment Not Reportable 09/19/20 05:13 RBC Morphology Not Reportable 09/19/20 05:13 Dimorphic RBCs Not Reportable 09/19/20 05:13 Polychromasia Not Reportable 09/19/20 05:13 Hypochromasia Not Reportable 09/19/20 05:13 Poikilocytosis Not Reportable 09/19/20 05:13 Anisocytosis 1+ 09/19/20 05:13 Microcytosis Not Reportable 09/19/20 05:13 Macrocytosis Not Reportable 09/19/20 05:13 Spherocytes Not Reportable 09/19/20 05:13 Pappenheimer Bodies Not Reportable 09/19/20 05:13 Sickle Cells Not Reportable 09/19/20 05:13 Target Cells Not Reportable 09/19/20 05:13 Tear Drop Cells Not Reportable 09/19/20 05:13 Ovalocytes Not Reportable 09/19/20 05:13 Helmet Cells Not Reportable 09/19/20 05:13 Batres-Comfrey Bodies Not Reportable 09/19/20 05:13 [place] Rings Not Reportable 09/19/20 05:13 Manjit Cells Not Reportable 09/19/20 05:13 Bite Cells Not Reportable 09/19/20 05:13 Crenated Cell Not Reportable 09/19/20 05:13 Elliptocytes Not Reportable 09/19/20 05:13 Acanthocytes (Spur) Not Reportable 09/19/20 05:13 Rouleaux Not Reportable 09/19/20 05:13 Hemoglobin C Crystals Not Reportable 09/19/20 05:13 Schistocytes Not Reportable 09/19/20 05:13 Malaria parasites Not Reportable 09/19/20 05:13 Tommie Bodies Not Reportable 09/19/20 05:13 Hem Pathologist Commnt No 09/19/20 05:13 PT 16.1 Sec. (12.2-14.9) H 09/12/20 04:00 INR 1.31 (0.87-1.13) H 09/12/20 04:00 APTT 32.4 Sec. (24.2-36.6) 09/09/20 10:00 D-Dimer 8315.85 ng/mlDDU (0-234) H 09/07/20 14:00 ABG pH 7.442 (7.320-7.450) 09/14/20 03:54 POC ABG pCO2 42.3 mmHg (32.0-48.0) 09/14/20 03:54 ABG pCO2 33.4 mm Hg 09/11/20 05:40 POC ABG pO2 71.1 mmHg (83-108) L 09/14/20 03:54 ABG pO2 112.1 mm Hg (80.0-90.0) H 09/11/20 05:40 POC ABG HCO3 28.2 09/14/20 03:54 ABG HCO3 28.1 mmol/L (20.0-26.0) H 09/11/20 05:40 ABG O2 Saturation 98.4 % (95.0-99.0) 09/11/20 05:40 ABG O2 Content 11.6 (0.0-44) 09/11/20 05:40 POC ABG Base Excess 3.7 09/14/20 03:54 ABG Base Excess 5.4 mmol/L (-2.0-3.0) H 09/11/20 05:40 ABG Hemoglobin 10.3 (12.0-17.5) L 09/14/20 03:54 ABG Oxyhemoglobin 93.2 (94-98) L 09/13/20 04:47 ABG Carboxyhemoglobin 1.2 % (0.0-5.0) 09/11/20 05:40 ABG Methemoglobin 0.3 (0.0-1.5) 09/13/20 04:47 ABG Sodium 135.2 mmol/L (136.0-145.0) L 09/14/20 03:54 ABG Potassium 3.8 mmol/L (3.40-4.50) 09/14/20 03:54 ABG Chloride 98.0 mmol/L (98-107) 09/14/20 03:54 ABG Glucose 281 mg/dL (65-95) H 09/14/20 03:54 Oxyhemoglobin 96.8 % (95.0-99.0) 09/11/20 05:40 Carboxyhemoglobin 0.4 (0.5-1.5) L 09/13/20 04:47 FiO2 30 09/14/20 03:54 Sodium 142 mmol/L (137-145) 09/27/20 04:47 Potassium 3.6 mmol/L (3.6-5.0) 09/27/20 04:47 Chloride 103.5 mmol/L (98-107) 09/27/20 04:47 Carbon Dioxide 27 mmol/L (22-30) 09/27/20 04:47 Anion Gap 15 mmol/L 09/27/20 04:47 BUN 54 mg/dL (9-20) H 09/27/20 04:47 Creatinine 4.7 mg/dL (0.8-1.3) H 09/27/20 04:47 Estimated GFR 15 ml/min 09/27/20 04:47 BUN/Creatinine Ratio 11 % 09/27/20 04:47 Glucose 218 mg/dL (75-100) H 09/27/20 04:47 POC Glucose 197 mg/dL (70-105) H 09/27/20 05:14 Lactic Acid 2.90 mmol/L (0.7-2.0) H* 09/17/20 13:52 Calcium 9.1 mg/dL (8.4-10.2) 09/27/20 04:47 Phosphorus 8.00 mg/dL (2.5-4.5) H 09/08/20 12:02 Magnesium 1.80 mg/dL (1.7-2.3) 09/08/20 12:02 Ferritin > 2000.0 ng/mL (30.0-300.0) H 09/07/20 14:00 Total Bilirubin 0.50 mg/dL (0.1-1.2) 09/25/20 05:18 Direct Bilirubin 0.5 mg/dL (0-0.2) H 09/08/20 05:00 Indirect Bilirubin 0.5 mg/dL 09/08/20 05:00 AST 55 units/L (5-40) H 09/25/20 05:18 ALT 74 units/L (7-56) H 09/25/20 05:18 Alkaline Phosphatase 81 units/L (35-129) 09/25/20 05:18 Ammonia 50.0 umol/L (25-60) 09/07/20 14:00 Lactate Dehydrogenase 882 units/L (91-180) H 09/07/20 14:00 Total Creatine Kinase 477 units/L (55-170) H 09/07/20 14:00 Troponin T 0.076 ng/mL (0.00-0.029) H 09/07/20 14:00 C-Reactive Protein 1.10 mg/dL (0.00-1.30) 09/07/20 14:00 Total Protein 7.0 g/dL (6.3-8.2) 09/25/20 05:18 Albumin 2.6 g/dL (3.9-5) L 09/25/20 05:18 Albumin/Globulin Ratio 0.6 % 09/25/20 05:18 Triglycerides 220 mg/dL (2-149) H 09/12/20 Unknown Procalcitonin 1.52 ng/mL (<0.15) 09/17/20 13:02 TSH 2.290 mlU/mL (0.270-4.200) 09/07/20 14:00 Arterial Blood Glucose 281 mg/dL (65-95) H 09/14/20 03:54 Arterial Blood Ionized Calcium 4.6 mg/dL (4.6-5.3) 09/14/20 03:54 Urine Color Straw (Yellow) 09/07/20 13:08 Urine Turbidity Slightly-cloudy (Clear) 09/07/20 13:08 Urine pH 8.0 (5.0-7.0) H 09/07/20 13:08 Ur Specific [place] 1.006 (1.003-1.030) 09/07/20 13:08 Urine Protein 100 mg/dl mg/dL (Negative) 09/07/20 13:08 Urine Glucose (UA) Neg mg/dL (Negative) 09/07/20 13:08 Urine Ketones Neg mg/dL (Negative) 09/07/20 13:08 Urine Blood Neg (Negative) 09/07/20 13:08 Urine Nitrite Neg (Negative) 09/07/20 13:08 Urine Bilirubin Neg (Negative) 09/07/20 13:08 Urine Urobilinogen < 2.0 mg/dL (<2.0) 09/07/20 13:08 Ur Leukocyte Esterase Neg (Negative) 09/07/20 13:08 Urine WBC (Auto) 4.0 /HPF (0.0-6.0) 09/07/20 13:08 Urine RBC (Auto) 18.0 /HPF (0.0-6.0) 09/07/20 13:08 U Epithel Cells (Auto) 1.0 /HPF (0-13.0) 09/07/20 13:08 Urine Mucus Few /HPF 09/07/20 13:08 Urine Sperm 3+ /HPF (FOREX TRADER) 09/07/20 13:08 Urine Creatinine 182.4 mg/dL (0.1-20.0) H 09/08/20 Unknown Urine Sodium 40 mmol/L 09/08/20 Unknown Salicylates < 0.3 mg/dL (2.8-20.0) L 09/07/20 14:00 Acetaminophen 5.0 ug/mL (10.0-30.0) L 09/07/20 14:00 Plasma/Serum Alcohol < 0.01 % (0-0.07) 09/07/20 14:00 Coronavirus (PCR) Negative (Negative) 09/19/20 Unknown Hepatitis A IgM Ab Non-reactive (NonReactive) 09/07/20 14:00 Hep Bs Antigen Non-reactive (Negative) 09/07/20 14:00 Hep B Core IgM Ab Non-reactive (NonReactive) 09/07/20 14:00 Hepatitis C Antibody Non-reactive (NonReactive) 09/07/20 14:00 HIV 1&2 Antibody Rapid Non react (Non React) 09/07/20 14:34 HIV P24 Antigen Non react (Non React) 09/07/20 14:34 Blood Type O POSITIVE 09/09/20 10:00 Antibody Screen Negative 09/07/20 14:00 Mae/IV: Voiding Method Condom Catheter IV Catheter Type [Right Triple Lumen Cath Femoral] IV Catheter Type [Left Peripheral IV Antecubital] IV Catheter Type [Left Hand] Peripheral IV IV Catheter Type [Right Peripheral IV Antecubital] Active Medications - Current Medications Current Medications: Generic Name Dose Route Start Last Admin Trade Name Freq PRN Reason Stop Dose Admin Acetaminophen 400 mg 09/10/20 20:50 09/14/20 23:38 Acetaminophen 325 Mg/10.15 Ml Oral Liqd Unit Dose PO 400 mg Q4HR PRN Administration Non Cardiac Pain or Temp>100.5 Lipase/Protease/Amylase 1 each 09/09/20 09:40 Lipase 10,500/Protease 25,000/Amylase 43,750 (Units) Dr Armenta FEEDTUBE PRN PRN For Clogged Feeding Tube Hydralazine HCl 50 mg 09/23/20 14:00 09/27/20 06:12 Hydralazine 25 Mg Tab PO Not Given Q8HR TAYLOR Hydrophilic Ointment 1 applic 09/07/20 13:08 Lip Therapy Vaseline TP Q2HR PRN Dry Lips Sodium Chloride 100 mls @ 999 mls/hr 09/09/20 13:36 Nacl 0.9% IV JAYJAY PRN Hypotension Levetiracetam 1,500 mg/ 115 mls @ 400 mls/hr 09/11/20 10:00 09/27/20 09:33 Dextrose IV 09/27/20 23:59 400 mls/hr BID TAYLOR Administration Valproate Sodium 1,000 mg/ 110 mls @ 100 mls/hr 09/14/20 22:00 09/27/20 09:33 Sodium Chloride IV 09/27/20 23:59 100 mls/hr Q12HR TAYLOR Administration Insulin Human Lispro 0 unit 09/12/20 12:00 09/27/20 06:11 Insulin Lispro 100 Unit/Ml SUB-Q 3 unit Q6HR TAYLOR Administration Protocol Lansoprazole 30 mg 09/11/20 11:00 09/27/20 09:37 Lansoprazole 30 Mg Solutab FEEDTUBE 30 mg BID TAYLOR Administration Levetiracetam 1,500 mg 09/28/20 10:00 Levetiracetam 500 Mg/5 Ml Oral Liqd PO BID TAYLOR Lorazepam 2 mg 09/08/20 00:14 09/14/20 13:36 Lorazepam 2 Mg/Ml Vial IV 2 mg Q4H PRN Administration Seizures Metoclopramide HCl 5 mg 09/22/20 12:00 09/27/20 06:11 Metoclopramide 10 Mg/2 Ml Inj IV 5 mg Q6HR TAYLOR Administration Multi-Ingred Cream/Lotion/Oil/Oint 1 applic 09/07/20 13:08 09/20/20 10:50 Mineral Oil/Petrolatum, White Ophth Oint 3.5 Gm OU 1 applic Q4HR PRN Administration Dry Eye(s) Multivitamins 5 ml 09/09/20 12:00 09/27/20 09:33 Multivitamins 5 Ml Oral Liquid PO 5 ml QDAY TAYLOR Administration Ondansetron HCl 4 mg 09/07/20 17:55 09/19/20 04:00 Ondansetron 4 Mg/2 Ml Inj IV 4 mg Q8H PRN Administration Nausea And Vomiting Senna/Docusate Sodium 2 tab 09/20/20 11:00 Sennosides/Docusate Sodium 8.6/50 Mg Tab PO BID PRN Laxative Effect Simple Syrup 15 ml 09/09/20 09:40 09/17/20 17:43 Simple Syrup 15 Ml FEEDTUBE 15 ml PRN PRN Administration Hypoglycemia Simple Syrup 30 ml 09/09/20 09:40 Simple Syrup 15 Ml FEEDTUBE PRN PRN Hypoglycemia Sodium Bicarbonate 325 mg 09/09/20 09:40 Sodium Bicarbonate 325 Mg Tab FEEDTUBE PRN PRN For Clogged Feeding Tube Sodium Chloride 10 ml 09/07/20 22:00 09/27/20 09:38 Sodium Chloride 0.9% 10 Ml Flush Syringe IV 10 ml BID TAYLOR Administration Sodium Chloride 10 ml 09/07/20 17:55 Sodium Chloride 0.9% 10 Ml Flush Syringe IV PRN PRN LINE FLUSH Valproic Acid 1,000 mg 09/28/20 10:00 Valproic Acid 250 Mg/5 Ml Oral Liqd FEEDTUBE BID [facility] Nutrition/Malnutrition Assess - Dietary Evaluation Nutrition/Malnutrition Findings: Nutrition Notes Start: 09/08/20 12:01 Freq: Status: Active Protocol: Document 09/25/20 12:32 CW (Rec: 09/25/20 12:53 CW [id number]) Nutrition Notes Initial or Follow up Reassessment Current Diagnosis Acute Kidney Injury, Respiratory Failure Other Pertinent Diagnosis on HD, cardiac arrest, COVID ( +), metabolic encephalopathy, pneu Current Diet Nepro 1.8 at 45 mL/hr (goal rate) Labs/Tests Na 149 K 3.3 BUN 70 Cr 5.6 BG 196 Pertinent Medications Humalog Levetiracetam in Dextrose at 115 ml/h Reglan Height 6 ft Weight 150.6 kg [place] Body Weight (kg) 80.90 BMI 45.0 Weight change and time frame -11% x 3 days. Likely related to HD MWF Weight Status Morbidly Obese Subjective/Other Information F/U for TF restart and weights . Weight chaenge likely related to HD. TF held previous day d/t high residuals and vomiting. Awaiting KUB. Will attempt Nepro per MD x1 24 hours following KUB then possible switch to better tolerated TF regimen. Percent of energy/protein needs met: 20%/13% Burn Absent Trauma Absent GI Symptoms Vomiting Current % PO Negligible Minimum of two criteria No physical signs of malnutrition #1 Nutrition Diagnosis Inadequate oral intake Diagnosis Progress(for reassessment Continues documentation) Is patient on ventilator? Yes Is Patient Ambulatory and/or Out of Bed No REE-([facility]-confined to bed) 2805.132 Kcal/Kg value to use for calculation 14 Approximate Energy Requirements Using 2108 kcal/Kg Calculation Used for Recommendations Kcal/kg Additional Notes PRO needs: >149g (>1.2g/kg AdBW 124kg) Fluid needs: 2811-6893 mL or per MD Nutrition Intervention Change Diet Order: Change TF regimen to Osmolite 1.5 at 60ml/h with a free water flush of 250 ml q4h for hypernatremia if continues not to tolerate Nepro. If hypernatermia resolved free water flush of 175 q4h Nutrition Support: Nepro 1.8 at 45 mL/hr Flush 200 mL q4h Kcal 1,944 Protein (gm) 87 Fluid (mL) 785 Goal #1 TF tolerance an advancement towards goal rate Goal #2 Meet at least 80% of kcal and protein needs via TF regimen Anticipated Discharge Needs: TF Follow-Up By: 09/27/20 Additional Comments F/U for TF restart, TF toleration
--- NOTE | 2020-09-27 11:22 | Progress Note ---
Assessment and Plan 65 y/o male with out of hospital cardiac arrest now sedated on ativan for possible seizures. 09/27/20: T-piece trial again today. Will attempt to go 24 hours. Still needs HD per renal. This will be a barrier to discharge. CM knows and will discuss with administration. 09/26/20: Will do T-piece today. If tolerates the next 24 hours will move out of ICU. : PSV for the next 24 hours if tolerates. Restart feeds today at 10. Continue reglan. If tomorrow, same issues. Will change feeds, obtain GI consult. Continue antiepileptic therapy. 09/24/20: Continue Daily PSV, maybe ready for 24 hour trial. Antiepleptic thera py. Hold feeds today, suggest GI consult. Will discuss with Dietary on round tomorrow. 09/23/20: Daily PSV trials multiple times a day if needed. Antiepileptic therapy. Resume tube feeds today. 09/22/20: PSV trial today as tolerated and every day from this day forward. NO sedation. Continue antiepileptic therapy. HD per renal. Still having issues with feeds. Will contact to see if he has any food allergies. Prognosis still remains very poor. WIll start some promotility agents as well. 09/21/20: Trach and peg today. Continue with vent weaning. Hopeful we can wean him off the vent once trached. Only place [facility] will cover is SNF. Prognosis remains very poor for recovery of functional state. 09/20/20: Placed consult to surgery now that COVID is negative. However, rahul ent is morbidly obese and his surgery will likely be a complicated one especially with peg placement. Await surgery eval and recs. HD per renal. Continue daily PSV trials, mental status precludes extubation traditionally but maybe able to wean off vent with stable airway such as trach. [facility] has denied transfer and placement requests at this time based on CM notes. Prognosis is very poor, but after speaking with neurology and neurosurgery, patient wishes to continue aggressive measures. 09/19/20: Ordered repeat COVID as surgery will not do trach and peg until negative status. Continue supportive measures. Prognosis is very very poor but family wishes to proceed with emt intermediate care. 09/18/20: Unable to fit in MRI. Repeat CT showed improvement in edema but no clinical response is seen with this. Will continue Antiepileptic therapy. If wishes to proceed, will need trach and peg. Not sure if he would be candidate for PEG given his size but will ask surgery. Will need repeat COVID test prior to surgery. 09/15/20: Order MRI brain without contrast. Per surgery this will help to add more in regards to prognosis. Continue Valproic Acid and Keppra for seizure therapy. HD going now per renal. Overall prognosis remains guarded to poor. Please reach out to over the weekend to update her as I am not rounding this weekend, ,my partner will be covering. 09/14/20: Will load with valproic acid and then start to wean Diprovan. Spoke with today, very tearful on the phone. Explained to that Neurosurgery would come and gustabo walker but not a candidate for the other therapies she asked about since his edema is related to anoxic injury. Very very poor prognos is. 09/13/20: Per current neuro available, the neurologist from yesterday will call today. EEG is nonspecific but given CT of head findings consistent with anoxic encephalopathy, brain injury. As stated in neuro note, overall prognosis is very poor. Will continue to wean down diprovan to see if patient's seizures have been controlled with current Keppra dosing. Will call once she has spoken to neuro to get her thoughts on the next steps. (trach and peg, vs hospice as well as code status). Very very poor prognosis. 09/12/20: Long discussion with this am. Given recent head CT results, prognosis for full functional recovery is very POOR and neurology agrees. They will see in consult today. I have spoken to about AND and she is going to discuss with the family. The neurologist has stated they will reach out to the today. I am going to attempt to wean the ativan off and then start to wean the diprovan as long as no seizure activity is seen. Patient is now bradycardic, likely secondary to neuro state. I hope that he is not about to herniate. Patient is also like in Neurogenic DI given large urine out put volume. Very very poor prognosis. Continue supportive measures. 09/11/20: Will increase Keppra to 1500 BID given patient size. Continue Diprovan drip. Getting EEG today. HD per renal. Needs neurology consult however if patient is in status, needs to be transferred to an institution that can provide continuous EEG monitoring. Overll prognosis is very guarded to poor. Have not spoken to yet today. 09/10/20: Loaded with keppra and will start on Keppra BID. Needs EEG on therapy as well as OFF. If patient is in status, needs transfer to a location with continuous EEG capabilities. FiO2 has been weaned back down and is now at 60%, sats in the high 90's. HD per renal. Coags improving. Overall prognosis is guarded to poor. Spoke with on phone yesterday. Consult neurology tomorrow as not available on the weekend. Suggest checking for antibodies as he may be a candidate for convalsescent plasma. Per the , he was diagnosed with COVID on and spent 6 days inpatient at the [facility]. Remains posi tive now with multisystem organ failure. Explained to that outcome may not be good but need more time to assess. 09/09/20: EEG ordered on yesterday but not done. If done not read. Continue di provan for now until EEG can be done or interpreted. State Coags but given his oozing from his vascath, will give Vitamin K and FFP. Patient is covid positive so agree with steroids. Not a candidate for remdesivir. Need to check for antibodies, may be a candidate for convalescent plasma. HD per renal. Given improvement in pH will stop bicarb drip. Feed patient. 1. Stop sedation 2. EEG 3. Needs neuro consult. 4. Art line placement 5. Stat repeat of labs, if renal function is truly that bad, will need renal consult. 6. Follow up COVID testing 7. Likely needs echo 8. Will place on bicarb drip. CCT 31 minutes. Subjective Date of service: 09/27/20 Principal diagnosis: Abnormal LFTs, s/p cardiac arrest, acute kidney injury with ATN Interval history: No acute events. Tolerating tube feeds. Placed back on PSV last evening secondary to tachypnea. Back on T-piece now. Also getting HD Objective Vital Signs - 12hr 09/26/20 09/26/20 09/27/20 23:31 23:45 00:00 Temperature 96.9 F L Pulse Rate 55 L 56 L 57 L Pulse Rate [ 56 L From Monitor] Respiratory 24 26 H 24 Rate Blood Pressure 95/43 95/43 99/44 O2 Sat by Pulse 100 100 100 Oximetry O2 Sat by Pulse Oximetry [ Assessment] O2 Sat by Pulse Oximetry [ Bilateral Throughout] 09/27/20 09/27/20 09/27/20 00:15 00:28 00:31 Temperature Pulse Rate 57 L 56 L 57 L Pulse Rate [ From Monitor] Respiratory 19 24 Rate Blood Pressure 99/44 99/44 102/45 O2 Sat by Pulse 100 100 100 Oximetry O2 Sat by Pulse 100 Oximetry [ Assessment] O2 Sat by Pulse Oximetry [ Bilateral Throughout] 09/27/20 09/27/20 09/27/20 00:45 01:01 01:15 Temperature Pulse Rate 58 L 57 L 57 L Pulse Rate [ From Monitor] Respiratory 20 20 16 Rate Blood Pressure 102/45 93/42 93/42 O2 Sat by Pulse 100 100 100 Oximetry O2 Sat by Pulse Oximetry [ Assessment] O2 Sat by Pulse Oximetry [ Bilateral Throughout] 09/27/20 09/27/20 09/27/20 01:30 01:45 02:00 Temperature Pulse Rate 58 L 58 L 61 Pulse Rate [ From Monitor] Respiratory 18 25 H 22 Rate Blood Pressure 103/43 103/43 103/43 O2 Sat by Pulse 100 100 100 Oximetry O2 Sat by Pulse Oximetry [ Assessment] O2 Sat by Pulse Oximetry [ Bilateral Throughout] 09/27/20 09/27/20 09/27/20 02:15 02:30 02:45 Temperature Pulse Rate 58 L 58 L 57 L Pulse Rate [ From Monitor] Respiratory 24 18 19 Rate Blood Pressure 88/45 98/45 98/45 O2 Sat by Pulse 100 100 100 Oximetry O2 Sat by Pulse Oximetry [ Assessment] O2 Sat by Pulse Oximetry [ Bilateral Throughout] 09/27/20 09/27/20 09/27/20 03:00 03:15 03:25 Temperature 97.3 F L Pulse Rate 58 L 59 L Pulse Rate [ From Monitor] Respiratory 16 24 Rate Blood Pressure 95/49 95/49 O2 Sat by Pulse 100 100 Oximetry O2 Sat by Pulse Oximetry [ Assessment] O2 Sat by Pulse Oximetry [ Bilateral Throughout] 09/27/20 09/27/20 09/27/20 03:30 03:45 04:00 Temperature Pulse Rate 63 59 L 57 L Pulse Rate [ 58 L From Monitor] Respiratory 27 H 16 24 Rate Blood Pressure 97/54 97/54 97/54 O2 Sat by Pulse 100 100 100 Oximetry O2 Sat by Pulse Oximetry [ Assessment] O2 Sat by Pulse Oximetry [ Bilateral Throughout] 09/27/20 09/27/20 09/27/20 04:15 04:31 04:45 Temperature Pulse Rate 59 L 62 58 L Pulse Rate [ From Monitor] Respiratory 21 19 21 Rate Blood Pressure 99/48 124/67 O2 Sat by Pulse 100 100 Oximetry O2 Sat by Pulse Oximetry [ Assessment] O2 Sat by Pulse Oximetry [ Bilateral Throughout] 09/27/20 09/27/20 09/27/20 05:00 05:13 05:15 Temperature Pulse Rate 57 L 56 L 56 L Pulse Rate [ From Monitor] Respiratory 24 23 Rate Blood Pressure 132/70 132/70 132/70 O2 Sat by Pulse 100 100 100 Oximetry O2 Sat by Pulse Oximetry [ Assessment] O2 Sat by Pulse Oximetry [ Bilateral Throughout] 09/27/20 09/27/20 09/27/20 05:31 05:45 06:00 Temperature Pulse Rate 57 L 58 L 57 L Pulse Rate [ From Monitor] Respiratory 24 21 17 Rate Blood Pressure 137/70 137/70 135/68 O2 Sat by Pulse 100 100 100 Oximetry O2 Sat by Pulse Oximetry [ Assessment] O2 Sat by Pulse Oximetry [ Bilateral Throughout] 09/27/20 09/27/20 09/27/20 06:15 06:30 06:45 Temperature Pulse Rate 57 L 58 L 59 L Pulse Rate [ From Monitor] Respiratory 18 16 16 Rate Blood Pressure 135/68 138/72 138/72 O2 Sat by Pulse 100 100 100 Oximetry O2 Sat by Pulse Oximetry [ Assessment] O2 Sat by Pulse Oximetry [ Bilateral Throughout] 09/27/20 09/27/20 09/27/20 07:00 07:15 07:30 Temperature 98.2 F Pulse Rate 57 L 58 L 58 L Pulse Rate [ From Monitor] Respiratory 18 23 20 Rate Blood Pressure 137/70 137/70 130/73 O2 Sat by Pulse 100 100 100 Oximetry O2 Sat by Pulse Oximetry [ Assessment] O2 Sat by Pulse Oximetry [ Bilateral Throughout] 09/27/20 09/27/20 09/27/20 07:45 08:00 08:15 Temperature Pulse Rate 58 L 59 L 59 L Pulse Rate [ 58 L From Monitor] Respiratory 21 22 21 Rate Blood Pressure 130/73 131/64 131/64 O2 Sat by Pulse 100 100 100 Oximetry O2 Sat by Pulse Oximetry [ Assessment] O2 Sat by Pulse Oximetry [ Bilateral Throughout] 09/27/20 09/27/20 09/27/20 08:30 08:44 08:45 Temperature Pulse Rate 61 57 L 59 L Pulse Rate [ From Monitor] Respiratory 12 20 Rate Blood Pressure 128/69 135/68 128/69 O2 Sat by Pulse 100 100 100 Oximetry O2 Sat by Pulse Oximetry [ Assessment] O2 Sat by Pulse Oximetry [ Bilateral Throughout] 09/27/20 09/27/20 09/27/20 08:46 09:00 09:15 Temperature Pulse Rate 57 L 57 L Pulse Rate [ From Monitor] Respiratory 16 18 Rate Blood Pressure 142/69 142/69 O2 Sat by Pulse 100 100 Oximetry O2 Sat by Pulse 98 Oximetry [ Assessment] O2 Sat by Pulse Oximetry [ Bilateral Throughout] 09/27/20 09/27/20 09/27/20 09:31 09:45 09:53 Temperature 98.3 F Pulse Rate 57 L 56 L 56 L Pulse Rate [ From Monitor] Respiratory 23 31 H 35 H Rate Blood Pressure 126/64 126/64 144/69 O2 Sat by Pulse 100 100 Oximetry O2 Sat by Pulse Oximetry [ Assessment] O2 Sat by Pulse 100 Oximetry [ Bilateral Throughout] 09/27/20 09/27/20 09/27/20 09:57 10:01 10:15 Temperature Pulse Rate 56 L 54 L 57 L Pulse Rate [ From Monitor] Respiratory 27 H 33 H Rate Blood Pressure 142/71 145/70 143/71 O2 Sat by Pulse 100 100 Oximetry O2 Sat by Pulse Oximetry [ Assessment] O2 Sat by Pulse Oximetry [ Bilateral Throughout] 09/27/20 09/27/20 09/27/20 10:30 10:45 10:55 Temperature Pulse Rate 57 L 59 L Pulse Rate [ From Monitor] Respiratory 31 H 32 H Rate Blood Pressure 139/73 130/71 O2 Sat by Pulse 100 100 100 Oximetry O2 Sat by Pulse Oximetry [ Assessment] O2 Sat by Pulse Oximetry [ Bilateral Throughout] 09/27/20 11:00 Temperature Pulse Rate 60 Pulse Rate [ From Monitor] Respiratory 29 H Rate Blood Pressure 133/65 O2 Sat by Pulse 100 Oximetry O2 Sat by Pulse Oximetry [ Assessment] O2 Sat by Pulse Oximetry [ Bilateral Throughout] Constitutional: comatose, other (morbidly obese) Eyes: non-icteric ENT: other (orally intubated and sedated) Neck: supple Effort: normal Ascultation: Bilateral: diminished breath sounds Percussion: Bilateral: not dull Cardiovascular: other (bradycardic) Gastrointestinal: soft CBC and BMP: 09/27/20 04:47 09/27/20 04:47 ABG, PT/INR, D-dimer: ABG ABG pH 7.442 (7.320-7.450) 09/14/20 03:54 POC ABG pCO2 42.3 mmHg (32.0-48.0) 09/14/20 03:54 ABG pCO2 33.4 mm Hg 09/11/20 05:40 POC ABG pO2 71.1 mmHg (83-108) L 09/14/20 03:54 ABG pO2 112.1 mm Hg (80.0-90.0) H 09/11/20 05:40 POC ABG HCO3 28.2 09/14/20 03:54 ABG O2 Saturation 98.4 % (95.0-99.0) 09/11/20 05:40 PT/INR, D-dimer PT 16.1 Sec. (12.2-14.9) H 09/12/20 04:00 INR 1.31 (0.87-1.13) H 09/12/20 04:00 D-Dimer 8315.85 ng/mlDDU (0-234) H 09/07/20 14:00 Abnormal lab findings: Abnormal Labs 09/07/20 09/07/20 09/07/20 13:08 14:00 14:00 WBC 15.7 H RBC Hgb 10.2 L Hct 32.5 L MCHC 31 L RDW 17.5 H Lymph % (Auto) Mora % (Auto) Lymph # (Auto) Mora # (Auto) Seg Neutrophils % Seg Neuts % (Manual) 72.0 H Lymphocytes % (Manual) Monocytes % (Manual) 8.0 H Nucleated RBC % Seg Neutrophils # Seg Neutrophils # Man 11.3 H Lymphocytes # (Manual) Monocytes # (Manual) 1.3 H PT INR D-Dimer 8315.85 H ABG pH POC ABG pCO2 POC ABG pO2 ABG pO2 ABG HCO3 ABG Base Excess ABG Hemoglobin ABG Oxyhemoglobin ABG Sodium ABG Potassium ABG Chloride ABG Glucose Carboxyhemoglobin Sodium Potassium Chloride Carbon Dioxide BUN Creatinine Glucose POC Glucose Lactic Acid Calcium Phosphorus Ferritin Total Bilirubin Direct Bilirubin AST ALT Lactate Dehydrogenase Total Creatine Kinase Troponin T Total Protein Albumin Triglycerides Arterial Blood Glucose Arterial Blood Ionized Calcium Urine pH 8.0 H Urine Creatinine Salicylates Acetaminophen Coronavirus (PCR) 09/07/20 09/07/20 09/07/20 14:00 14:00 14:00 WBC RBC Hgb Hct MCHC RDW Lymph % (Auto) Mora % (Auto) Lymph # (Auto) Mora # (Auto) Seg Neutrophils % Seg Neuts % (Manual) Lymphocytes % (Manual) Monocytes % (Manual) Nucleated RBC % Seg Neutrophils # Seg Neutrophils # Man Lymphocytes # (Manual) Monocytes # (Manual) PT INR D-Dimer ABG pH POC ABG pCO2 POC ABG pO2 ABG pO2 ABG HCO3 ABG Base Excess ABG Hemoglobin ABG Oxyhemoglobin ABG Sodium ABG Potassium ABG Chloride ABG Glucose Carboxyhemoglobin Sodium Potassium Chloride Carbon Dioxide BUN Creatinine Glucose POC Glucose Lactic Acid 4.30 H* Calcium Phosphorus Ferritin > 2000.0 H Total Bilirubin Direct Bilirubin AST ALT Lactate Dehydrogenase 882 H Total Creatine Kinase 477 H Troponin T 0.076 H Total Protein Albumin Triglycerides Arterial Blood Glucose Arterial Blood Ionized Calcium Urine pH Urine Creatinine Salicylates Acetaminophen Coronavirus (PCR) 09/07/20 09/07/20 09/07/20 14:00 14:00 14:00 WBC RBC Hgb Hct MCHC RDW Lymph % (Auto) Mora % (Auto) Lymph # (Auto) Mora # (Auto) Seg Neutrophils % Seg Neuts % (Manual) Lymphocytes % (Manual) Monocytes % (Manual) Nucleated RBC % Seg Neutrophils # Seg Neutrophils # Man Lymphocytes # (Manual) Monocytes # (Manual) PT INR D-Dimer ABG pH POC ABG pCO2 POC ABG pO2 ABG pO2 ABG HCO3 ABG Base Excess ABG Hemoglobin ABG Oxyhemoglobin ABG Sodium ABG Potassium ABG Chloride ABG Glucose Carboxyhemoglobin Sodium Potassium Chloride Carbon Dioxide BUN Creatinine 1.8 H Glucose POC Glucose Lactic Acid Calcium Phosphorus Ferritin Total Bilirubin Direct Bilirubin AST 310 H ALT 339 H Lactate Dehydrogenase Total Creatine Kinase Troponin T Total Protein Albumin 3.6 L Triglycerides Arterial Blood Glucose Arterial Blood Ionized Calcium Urine pH Urine Creatinine Salicylates < 0.3 L Acetaminophen 5.0 L Coronavirus (PCR) 09/07/20 09/08/20 09/08/20 14:26 04:00 04:17 WBC RBC Hgb Hct MCHC RDW Lymph % (Auto) Mora % (Auto) Lymph # (Auto) Mora # (Auto) Seg Neutrophils % Seg Neuts % (Manual) Lymphocytes % (Manual) Monocytes % (Manual) Nucleated RBC % Seg Neutrophils # Seg Neutrophils # Man Lymphocytes # (Manual) Monocytes # (Manual) PT INR D-Dimer ABG pH 7.037 L 7.095 L POC ABG pCO2 92.4 H 68.0 H POC ABG pO2 130.8 H 43.5 L ABG pO2 ABG HCO3 ABG Base Excess ABG Hemoglobin 11.3 L 10.6 L ABG Oxyhemoglobin 70.8 L ABG Sodium ABG Potassium 7.0 H ABG Chloride 108.0 H ABG Glucose Carboxyhemoglobin 0.3 L Sodium Potassium 8.4 H* D Chloride Carbon Dioxide 17 L D BUN 38 H Creatinine 3.9 H D Glucose POC Glucose Lactic Acid Calcium 7.7 L D Phosphorus Ferritin Total Bilirubin Direct Bilirubin AST ALT Lactate Dehydrogenase Total Creatine Kinase Troponin T Total Protein Albumin Triglycerides Arterial Blood Glucose Arterial Blood Ionized Calcium 4.5 L Urine pH Urine Creatinine Salicylates Acetaminophen Coronavirus (PCR) 09/08/20 09/08/20 09/08/20 05:00 05:25 12:02 WBC RBC Hgb Hct MCHC RDW Lymph % (Auto) Mora % (Auto) Lymph # (Auto) Mora # (Auto) Seg Neutrophils % Seg Neuts % (Manual) Lymphocytes % (Manual) Monocytes % (Manual) Nucleated RBC % Seg Neutrophils # Seg Neutrophils # Man Lymphocytes # (Manual) Monocytes # (Manual) PT INR D-Dimer ABG pH 7.088 L POC ABG pCO2 69.1 H POC ABG pO2 35.2 L ABG pO2 ABG HCO3 ABG Base Excess ABG Hemoglobin 10.9 L ABG Oxyhemoglobin 57.1 L ABG Sodium ABG Potassium 7.0 H ABG Chloride 108.0 H ABG Glucose Carboxyhemoglobin 0.4 L Sodium Potassium 8.1 H* Chloride Carbon Dioxide 17 L BUN 38 H Creatinine 3.7 H Glucose POC Glucose Lactic Acid Calcium 8.0 L Phosphorus 8.00 H Ferritin Total Bilirubin Direct Bilirubin 0.5 H AST 3696 H ALT 3331 H Lactate Dehydrogenase Total Creatine Kinase Troponin T Total Protein Albumin 3.5 L Triglycerides Arterial Blood Glucose Arterial Blood Ionized Calcium 4.4 L Urine pH Urine Creatinine Salicylates Acetaminophen Coronavirus (PCR) 09/08/20 09/08/20 09/08/20 16:31 22:36 Unknown WBC RBC Hgb Hct MCHC RDW Lymph % (Auto) Mora % (Auto) Lymph # (Auto) Mora # (Auto) Seg Neutrophils % Seg Neuts % (Manual) Lymphocytes % (Manual) Monocytes % (Manual) Nucleated RBC % Seg Neutrophils # Seg Neutrophils # Man Lymphocytes # (Manual) Monocytes # (Manual) PT INR D-Dimer ABG pH POC ABG pCO2 POC ABG pO2 ABG pO2 ABG HCO3 ABG Base Excess ABG Hemoglobin ABG Oxyhemoglobin ABG Sodium ABG Potassium ABG Chloride ABG Glucose Carboxyhemoglobin Sodium Potassium 5.3 H D Chloride Carbon Dioxide BUN Creatinine Glucose POC Glucose 158 H Lactic Acid Calcium Phosphorus Ferritin Total Bilirubin Direct Bilirubin AST ALT Lactate Dehydrogenase Total Creatine Kinase Troponin T Total Protein Albumin Triglycerides Arterial Blood Glucose Arterial Blood Ionized Calcium Urine pH Urine Creatinine Salicylates Acetaminophen Coronavirus (PCR) Positive A 09/08/20 09/08/20 09/08/20 Unknown Unknown Unknown WBC 18.4 H RBC Hgb 10.1 L Hct 32.0 L MCHC RDW 18.2 H Lymph % (Auto) Mora % (Auto) Lymph # (Auto) Mora # (Auto) Seg Neutrophils % Seg Neuts % (Manual) 81.0 H Lymphocytes % (Manual) 2.0 L Monocytes % (Manual) Nucleated RBC % 1.0 H Seg Neutrophils # Seg Neutrophils # Man 14.9 H Lymphocytes # (Manual) 0.4 L Monocytes # (Manual) 1.1 H PT 21.2 H INR 1.83 H D-Dimer ABG pH POC ABG pCO2 POC ABG pO2 ABG pO2 ABG HCO3 ABG Base Excess ABG Hemoglobin ABG Oxyhemoglobin ABG Sodium ABG Potassium ABG Chloride ABG Glucose Carboxyhemoglobin Sodium Potassium Chloride Carbon Dioxide BUN Creatinine Glucose POC Glucose Lactic Acid Calcium Phosphorus Ferritin Total Bilirubin Direct Bilirubin AST ALT Lactate Dehydrogenase Total Creatine Kinase Troponin T Total Protein Albumin Triglycerides Arterial Blood Glucose Arterial Blood Ionized Calcium Urine pH Urine Creatinine 182.4 H Salicylates Acetaminophen Coronavirus (PCR) 09/09/20 09/09/20 09/09/20 03:14 04:20 04:20 WBC 16.3 H RBC 3.12 L Hgb 8.6 L Hct 26.8 L MCHC RDW 18.2 H Lymph % (Auto) 6.3 L Mora % (Auto) 8.8 H Lymph # (Auto) 1.0 L Mora # (Auto) 1.4 H Seg Neutrophils % 84.5 H Seg Neuts % (Manual) Lymphocytes % (Manual) Monocytes % (Manual) Nucleated RBC % Seg Neutrophils # 13.7 H Seg Neutrophils # Man Lymphocytes # (Manual) Monocytes # (Manual) PT INR D-Dimer ABG pH POC ABG pCO2 POC ABG pO2 148.5 H ABG pO2 ABG HCO3 ABG Base Excess ABG Hemoglobin 9.4 L ABG Oxyhemoglobin 98.8 H ABG Sodium 134.8 L ABG Potassium 5.0 H ABG Chloride ABG Glucose 222 H Carboxyhemoglobin 0.1 L Sodium Potassium 5.2 H Chloride Carbon Dioxide BUN 47 H Creatinine 4.3 H Glucose 211 H POC Glucose Lactic Acid Calcium 7.4 L Phosphorus Ferritin Total Bilirubin Direct Bil[place] AST 84995 H ALT 6206 H Lactate Dehydrogenase Total Creatine Kinase Troponin T Total Protein 5.6 L Albumin 3.0 L Triglycerides Arterial Blood Glucose 222 H Arterial Blood Ionized Calcium 3.8 L Urine pH Urine Creatinine Salicylates Acetaminophen Coronavirus (PCR) 09/09/20 09/09/20 09/09/20 10:00 12:23 18:22 WBC RBC Hgb Hct MCHC RDW Lymph % (Auto) Mora % (Auto) Lymph # (Auto) Mora # (Auto) Seg Neutrophils % Seg Neuts % (Manual) Lymphocytes % (Manual) Monocytes % (Manual) Nucleated RBC % Seg Neutrophils # Seg Neutrophils # Man Lymphocytes # (Manual) Monocytes # (Manual) PT 21.7 H INR 1.90 H D-Dimer ABG pH POC ABG pCO2 POC ABG pO2 ABG pO2 ABG HCO3 ABG Base Excess ABG Hemoglobin ABG Oxyhemoglobin ABG Sodium ABG Potassium ABG Chloride ABG Glucose Carboxyhemoglobin Sodium Potassium Chloride Carbon Dioxide BUN Creatinine Glucose POC Glucose 216 H 211 H Lactic Acid Calcium Phosphorus Ferritin Total Bilirubin Direct Bilirubin AST ALT Lactate Dehydrogenase Total Creatine Kinase Troponin T Total Protein Albumin Triglycerides Arterial Blood Glucose Arterial Blood Ionized Calcium Urine pH Urine Creatinine Salicylates Acetaminophen Coronavirus (PCR) 09/10/20 09/10/20 09/10/20 04:00 04:05 04:05 WBC 15.0 H RBC 3.06 L Hgb 8.6 L Hct 25.8 L MCHC RDW 18.0 H Lymph % (Auto) Mora % (Auto) Lymph # (Auto) Mora # (Auto) Seg Neutrophils % Seg Neuts % (Manual) 86.0 H Lymphocytes % (Manual) 6.0 L Monocytes % (Manual) 8.0 H Nucleated RBC % Seg Neutrophils # Seg Neutrophils # Man 12.9 H Lymphocytes # (Manual) 0.9 L Monocytes # (Manual) 1.2 H PT 18.4 H INR 1.54 H D-Dimer ABG pH POC ABG pCO2 POC ABG pO2 ABG pO2 ABG HCO3 ABG Base Excess ABG Hemoglobin ABG Oxyhemoglobin ABG Sodium ABG Potassium ABG Chloride ABG Glucose Carboxyhemoglobin Sodium 134 L Potassium Chloride 93.7 L Carbon Dioxide BUN 46 H Creatinine 3.6 H Glucose 275 H POC Glucose Lactic Acid Calcium 7.7 L Phosphorus Ferritin Total Bilirubin 1.30 H Direct Bilirubin AST 5899 H ALT 6440 H Lactate Dehydrogenase Total Creatine Kinase Troponin T Total Protein 5.9 L Albumin 3.3 L Triglycerides Arterial Blood Glucose Arterial Blood Ionized Calcium Urine pH Urine Creatinine Salicylates Acetaminophen Coronavirus (PCR) 09/10/20 09/10/20 09/10/20 04:35 12:06 17:42 WBC RBC Hgb Hct MCHC RDW Lymph % (Auto) Mora % (Auto) Lymph # (Auto) Mora # (Auto) Seg Neutrophils % Seg Neuts % (Manual) Lymphocytes % (Manual) Monocytes % (Manual) Nucleated RBC % Seg Neutrophils # Seg Neutrophils # Man Lymphocytes # (Manual) Monocytes # (Manual) PT INR D-Dimer ABG pH 7.464 H POC ABG pCO2 POC ABG pO2 ABG pO2 ABG HCO3 ABG Base Excess ABG Hemoglobin 9.9 L ABG Oxyhemoglobin ABG Sodium 131.6 L ABG Potassium ABG Chloride 97.0 L ABG Glucose 281 H Carboxyhemoglobin 0.1 L Sodium Potassium Chloride Carbon Dioxide BUN Creatinine Glucose POC Glucose 298 H 340 H Lactic Acid Calcium Phosphorus Ferritin Total Bilirubin Direct Bilirubin AST ALT Lactate Dehydrogenase Total Creatine Kinase Troponin T Total Protein Albumin Triglycerides Arterial Blood Glucose 281 H Arterial Blood Ionized Calcium 3.9 L Urine pH Urine Creatinine Salicylates Acetaminophen Coronavirus (PCR) 09/10/20 09/11/20 09/11/20 23:07 04:44 05:17 WBC RBC Hgb Hct MCHC RDW Lymph % (Auto) Mora % (Auto) Lymph # (Auto) Mora # (Auto) Seg Neutrophils % Seg Neuts % (Manual) Lymphocytes % (Manual) Monocytes % (Manual) Nucleated RBC % Seg Neutrophils # Seg Neutrophils # Man Lymphocytes # (Manual) Monocytes # (Manual) PT 16.9 H INR 1.39 H D-Dimer ABG pH POC ABG pCO2 POC ABG pO2 ABG pO2 ABG HCO3 ABG Base Excess ABG Hemoglobin ABG Oxyhemoglobin ABG Sodium ABG Potassium ABG Chloride ABG Glucose Carboxyhemoglobin Sodium Potassium Chloride Carbon Dioxide BUN Creatinine Glucose POC Glucose 367 H 416 H Lactic Acid Calcium Phosphorus Ferritin Total Bilirubin Direct Bilirubin AST ALT Lactate Dehydrogenase Total Creatine Kinase Troponin T Total Protein Albumin Triglycerides Arterial Blood Glucose Arterial Blood Ionized Calcium Urine pH Urine Creatinine Salicylates Acetaminophen Coronavirus (PCR) 09/11/20 09/11/20 09/11/20 05:40 12:01 17:50 WBC RBC Hgb Hct MCHC RDW Lymph % (Auto) Mora % (Auto) Lymph # (Auto) Mora # (Auto) Seg Neutrophils % Seg Neuts % (Manual) Lymphocytes % (Manual) Monocytes % (Manual) Nucleated RBC % Seg Neutrophils # Seg Neutrophils # Man Lymphocytes # (Manual) Monocytes # (Manual) PT INR D-Dimer ABG pH 7.543 H POC ABG pCO2 POC ABG pO2 ABG pO2 112.1 H ABG HCO3 28.1 H ABG Base Excess 5.4 H ABG Hemoglobin 8.4 L ABG Oxyhemoglobin ABG Sodium ABG Potassium ABG Chloride ABG Glucose Carboxyhemoglobin Sodium Potassium Chloride Carbon Dioxide BUN Creatinine Glucose POC Glucose 418 H 404 H Lactic Acid Calcium Phosphorus Ferritin Total Bilirubin Direct Bilirubin AST ALT Lactate Dehydrogenase Total Creatine Kinase Troponin T Total Protein Albumin Triglycerides Arterial Blood Glucose Arterial Blood Ionized Calcium Urine pH Urine Creatinine Salicylates Acetaminophen Coronavirus (PCR) 09/11/20 09/11/20 09/12/20 23:10 23:43 03:15 WBC RBC Hgb Hct MCHC RDW Lymph % (Auto) Mora % (Auto) Lymph # (Auto) Mora # (Auto) Seg Neutrophils % Seg Neuts % (Manual) Lymphocytes % (Manual) Monocytes % (Manual) Nucleated RBC % Seg Neutrophils # Seg Neutrophils # Man Lymphocytes # (Manual) Monocytes # (Manual) PT INR D-Dimer ABG pH POC ABG pCO2 POC ABG pO2 ABG pO2 ABG HCO3 ABG Base Excess ABG Hemoglobin ABG Oxyhemoglobin ABG Sodium ABG Potassium ABG Chloride ABG Glucose Carboxyhemoglobin Sodium 135 L Potassium Chloride 92.3 L Carbon Dioxide BUN 62 H Creatinine 3.7 H Glucose 406 H POC Glucose 372 H 359 H Lactic Acid Calcium Phosphorus Ferritin Total Bilirubin Direct Bilirubin AST 687 H ALT 3701 H Lactate Dehydrogenase Total Creatine Kinase Troponin T Total Protein 5.8 L Albumin 3.1 L Triglycerides Arterial Blood Glucose Arterial Blood Ionized Calcium Urine pH Urine Creatinine Salicylates Acetaminophen Coronavirus (PCR) 09/12/20 09/12/20 09/12/20 03:18 04:00 04:00 WBC 13.7 H RBC 3.30 L Hgb 9.3 L Hct 27.6 L MCHC RDW 17.5 H Lymph % (Auto) Mora % (Auto) Lymph # (Auto) Mora # (Auto) Seg Neutrophils % Seg Neuts % (Manual) 76.0 H Lymphocytes % (Manual) 11.0 L Monocytes % (Manual) 13.0 H Nucleated RBC % Seg Neutrophils # Seg Neutrophils # Man 10.4 H Lymphocytes # (Manual) Monocytes # (Manual) 1.8 H PT 16.1 H INR 1.31 H D-Dimer ABG pH 7.558 H POC ABG pCO2 POC ABG pO2 74.7 L ABG pO2 ABG HCO3 ABG Base Excess ABG Hemoglobin 9.7 L ABG Oxyhemoglobin ABG Sodium 132.4 L ABG Potassium ABG Chloride 95.0 L ABG Glucose 437 H Carboxyhemoglobin Sodium Potassium Chloride Carbon Dioxide BUN Creatinine Glucose POC Glucose Lactic Acid Calcium Phosphorus Ferritin Total Bilirubin Direct Bilirubin AST ALT Lactate Dehydrogenase Total Creatine Kinase Troponin T Total Protein Albumin Triglycerides Arterial Blood Glucose 437 H Arterial Blood Ionized Calcium 4.3 L Urine pH Urine Creatinine Salicylates Acetaminophen Coronavirus (PCR) 09/12/20 09/12/20 09/12/20 04:21 05:20 06:37 WBC RBC Hgb Hct MCHC RDW Lymph % (Auto) [place]a % (Auto) Lymph # (Auto) Mora # (Auto) Seg Neutrophils % Seg Neuts % (Manual) Lymphocytes % (Manual) Monocytes % (Manual) Nucleated RBC % Seg Neutrophils # Seg Neutrophils # Man Lymphocytes # (Manual) Monocytes # (Manual) PT INR D-Dimer ABG pH POC ABG pCO2 POC ABG pO2 ABG pO2 ABG HCO3 ABG Base Excess ABG Hemoglobin ABG Oxyhemoglobin ABG Sodium ABG Potassium ABG Chloride ABG Glucose Carboxyhemoglobin Sodium Potassium Chloride Carbon Dioxide BUN Creatinine Glucose POC Glucose 417 H 397 H 370 H Lactic Acid Calcium Phosphorus Ferritin Total Bilirubin Direct Bilirubin AST ALT Lactate Dehydrogenase Total Creatine Kinase Troponin T Total Protein Albumin Triglycerides Arterial Blood Glucose Arterial Blood Ionized Calcium Urine pH Urine Creatinine Salicylates Acetaminophen Coronavirus (PCR) 09/12/20 09/12/20 09/12/20 11:56 17:14 21:52 WBC RBC Hgb Hct MCHC RDW Lymph % (Auto) [place]a % (Auto) Lymph # (Auto) [place]a # (Auto) Seg Neutrophils % Seg Neuts % (Manual) Lymphocytes % (Manual) Monocytes % (Manual) Nucleated RBC % Seg Neutrophils # Seg Neutrophils # Man Lymphocytes # (Manual) Monocytes # (Manual) PT INR D-Dimer ABG pH POC ABG pCO2 POC ABG pO2 ABG pO2 ABG HCO3 ABG Base Excess ABG Hemoglobin ABG Oxyhemoglobin ABG Sodium ABG Potassium ABG Chloride ABG Glucose Carboxyhemoglobin Sodium Potassium Chloride Carbon Dioxide BUN Creatinine Glucose POC Glucose 341 H 325 H 285 H Lactic Acid Calcium Phosphorus Ferritin Total Bilirubin Direct Bilirubin AST ALT Lactate Dehydrogenase Total Creatine Kinase Troponin T Total Protein Albumin Triglycerides Arterial Blood Glucose Arterial Blood Ionized Calcium Urine pH Urine Creatinine Salicylates Acetaminophen Coronavirus (PCR) 09/12/20 09/12/20 09/12/20 23:39 Unknown Unknown WBC RBC Hgb Hct MCHC RDW Lymph % (Auto) [place]a % (Auto) Lymph # (Auto) [place]a # (Auto) Seg Neutrophils % Seg Neuts % (Manual) Lymphocytes % (Manual) Monocytes % (Manual) Nucleated RBC % Seg Neutrophils # Seg Neutrophils # Man Lymphocytes # (Manual) Monocytes # (Manual) PT INR D-Dimer ABG pH POC ABG pCO2 POC ABG pO2 ABG pO2 ABG HCO3 ABG Base Excess ABG Hemoglobin ABG Oxyhemoglobin ABG Sodium ABG Potassium ABG Chloride ABG Glucose Carboxyhemoglobin Sodium 135 L Potassium Chloride 92.2 L Carbon Dioxide BUN 65 H Creatinine 3.5 H Glucose 418 H POC Glucose 338 H Lactic Acid Calcium Phosphorus Ferritin Total Bilirubin Direct Bilirubin AST 553 H ALT 3453 H Lactate Dehydrogenase Total Creatine Kinase Troponin T Total Protein 5.9 L Albumin 3.0 L Triglycerides 220 H Arterial Blood Glucose Arterial Blood Ionized Calcium Urine pH Urine Creatinine Salicylates Acetaminophen Coronavirus (PCR) 09/13/20 09/13/20 09/13/20 04:47 05:24 10:50 WBC RBC Hgb Hct MCHC RDW Lymph % (Auto) [place] % (Auto) Lymph # (Auto) [place]a # (Auto) Seg Neutrophils % Seg Neuts % (Manual) Lymphocytes % (Manual) Monocytes % (Manual) Nucleated RBC % Seg Neutrophils # Seg Neutrophils # Man Lymphocytes # (Manual) Monocytes # (Manual) PT INR D-Dimer ABG pH 7.571 H POC ABG pCO2 POC ABG pO2 69.0 L ABG pO2 ABG HCO3 ABG Base Excess ABG Hemoglobin 10.1 L ABG Oxyhemoglobin 93.2 L ABG Sodium 134.0 L ABG Potassium ABG Chloride ABG Glucose 365 H Carboxyhemoglobin 0.4 L Sodium Potassium Chloride 96.6 L Carbon Dioxide 32 H BUN 76 H Creatinine 3.1 H Glucose 395 H POC Glucose 329 H Lactic Acid Calcium Phosphorus Ferritin Total Bilirubin Direct Bilirubin AST ALT Lactate Dehydrogenase Total Creatine Kinase Troponin T Total Protein Albumin Triglycerides Arterial Blood Glucose 365 H Arterial Blood Ionized Calcium Urine pH Urine Creatinine Salicylates Acetaminophen Coronavirus (PCR) 09/13/20 09/13/20 09/13/20 11:39 17:48 23:35 WBC RBC Hgb Hct MCHC RDW Lymph % (Auto) [place]a % (Auto) Lymph # (Auto) [place]a # (Auto) Seg Neutrophils % Seg Neuts % (Manual) Lymphocytes % (Manual) Monocytes % (Manual) Nucleated RBC % Seg Neutrophils # Seg Neutrophils # Man Lymphocytes # (Manual) Monocytes # (Manual) PT INR D-Dimer ABG pH POC ABG pCO2 POC ABG pO2 ABG pO2 ABG HCO3 ABG Base Excess ABG Hemoglobin ABG Oxyhemoglobin ABG Sodium ABG Potassium ABG Chloride ABG Glucose Carboxyhemoglobin Sodium Potassium Chloride Carbon Dioxide BUN Creatinine Glucose POC Glucose 344 H 286 H 223 H Lactic Acid Calcium Phosphorus Ferritin Total Bilirubin Direct Bilirubin AST ALT Lactate Dehydrogenase Total Creatine Kinase Troponin T Total Protein Albumin Triglycerides Arterial Blood Glucose Arterial Blood Ionized Calcium Urine pH Urine Creatinine Salicylates Acetaminophen Coronavirus (PCR) 09/14/20 09/14/20 09/14/20 03:54 05:34 10:27 WBC RBC Hgb Hct MCHC RDW Lymph % (Auto) [place] % (Auto) Lymph # (Auto) [place]a # (Auto) Seg Neutrophils % Seg Neuts % (Manual) Lymphocytes % (Manual) Monocytes % (Manual) Nucleated RBC % Seg Neutrophils # Seg Neutrophils # Man Lymphocytes # (Manual) Monocytes # (Manual) PT INR D-Dimer ABG pH POC ABG pCO2 POC ABG pO2 71.1 L ABG pO2 ABG HCO3 ABG Base Excess ABG Hemoglobin 10.3 L ABG Oxyhemoglobin ABG Sodium 135.2 L ABG Potassium ABG Chloride ABG Glucose 281 H Carboxyhemoglobin Sodium Potassium Chloride 96.6 L Carbon Dioxide BUN 100 H Creatinine 3.9 H Glucose 286 H POC Glucose 252 H Lactic Acid Calcium Phosphorus Ferritin Total Bilirubin Direct Bilirubin AST 145 H ALT 1400 H Lactate Dehydrogenase Total Creatine Kinase Troponin T Total Protein 5.6 L Albumin 2.9 L Triglycerides Arterial Blood Glucose 281 H Arterial Blood Ionized Calcium Urine pH Urine Creatinine Salicylates Acetaminophen Coronavirus (PCR) 09/14/20 09/14/20 09/14/20 11:38 17:52 23:07 WBC RBC Hgb Hct MCHC RDW Lymph % (Auto) [place] % (Auto) Lymph # (Auto) [place]a # (Auto) Seg Neutrophils % Seg Neuts % (Manual) Lymphocytes % (Manual) Monocytes % (Manual) Nucleated RBC % Seg Neutrophils # Seg Neutrophils # Man Lymphocytes # (Manual) Monocytes # (Manual) PT INR D-Dimer ABG pH POC ABG pCO2 POC ABG pO2 ABG pO2 ABG HCO3 ABG Base Excess ABG Hemoglobin ABG Oxyhemoglobin ABG Sodium ABG Potassium ABG Chloride ABG Glucose Carboxyhemoglobin Sodium Potassium Chloride Carbon Dioxide BUN Creatinine Glucose POC Glucose 247 H 247 H 256 H Lactic Acid Calcium Phosphorus Ferritin Total Bilirubin Direct Bilirubin AST ALT Lactate Dehydrogenase Total Creatine Kinase Troponin T Total Protein Albumin Triglycerides Arterial Blood Glucose Arterial Blood Ionized Calcium Urine pH Urine Creatinine Salicylates Acetaminophen Coronavirus (PCR) 09/15/20 09/15/20 09/15/20 04:54 11:24 17:48 WBC RBC Hgb Hct MCHC RDW Lymph % (Auto) [place] % (Auto) Lymph # (Auto) [place]a # (Auto) Seg Neutrophils % Seg Neuts % (Manual) Lymphocytes % (Manual) Monocytes % (Manual) Nucleated RBC % Seg Neutrophils # Seg Neutrophils # Man Lymphocytes # (Manual) Monocytes # (Manual) PT INR D-Dimer ABG pH POC ABG pCO2 POC ABG pO2 ABG pO2 ABG HCO3 ABG Base Excess ABG Hemoglobin ABG Oxyhemoglobin ABG Sodium ABG Potassium ABG Chloride ABG Glucose Carboxyhemoglobin Sodium Potassium Chloride Carbon Dioxide BUN Creatinine Glucose POC Glucose 271 H 228 H 254 H Lactic Acid Calcium Phosphorus Ferritin Total Bilirubin Direct Bilirubin AST ALT Lactate Dehydrogenase Total Creatine Kinase Troponin T Total Protein Albumin Triglycerides Arterial Blood Glucose Arterial Blood Ionized Calcium Urine pH Urine Creatinine Salicylates Acetaminophen Coronavirus (PCR) 09/15/20 09/15/20 09/15/20 19:20 19:20 23:13 WBC 27.3 H RBC 3.16 L Hgb 8.8 L Hct 27.0 L MCHC RDW 19.7 H Lymph % (Auto) [place]a % (Auto) Lymph # (Auto) [place]a # (Auto) Seg Neutrophils % Seg Neuts % (Manual) 81.0 H Lymphocytes % (Manual) 9.0 L Monocytes % (Manual) 10.0 H Nucleated RBC % Seg Neutrophils # Seg Neutrophils # Man 22.1 H Lymphocytes # (Manual) Monocytes # (Manual) 2.7 H PT INR D-Dimer ABG pH POC ABG pCO2 POC ABG pO2 ABG pO2 ABG HCO3 ABG Base Excess ABG Hemoglobin ABG Oxyhemoglobin ABG Sodium ABG Potassium ABG Chloride ABG Glucose Carboxyhemoglobin Sodium Potassium Chloride Carbon Dioxide BUN 68 H Creatinine 2.8 H Glucose 288 H POC Glucose 259 H Lactic Acid Calcium Phosphorus Ferritin Total Bilirubin Direct Bilirubin AST ALT Lactate Dehydrogenase Total Creatine Kinase Troponin T Total Protein Albumin Triglycerides Arterial Blood Glucose Arterial Blood Ionized Calcium Urine pH Urine Creatinine Salicylates Acetaminophen Coronavirus (PCR) 09/16/20 09/16/20 09/16/20 05:27 09:40 11:48 WBC RBC Hgb Hct MCHC RDW Lymph % (Auto) [place] % (Auto) Lymph # (Auto) [place]a # (Auto) Seg Neutrophils % Seg Neuts % (Manual) Lymphocytes % (Manual) Monocytes % (Manual) Nucleated RBC % Seg Neutrophils # Seg Neutrophils # Man Lymphocytes # (Manual) Monocytes # (Manual) PT INR D-Dimer ABG pH POC ABG pCO2 POC ABG pO2 ABG pO2 ABG HCO3 ABG Base Excess ABG Hemoglobin ABG Oxyhemoglobin ABG Sodium ABG Potassium ABG Chloride ABG Glucose Carboxyhemoglobin Sodium Potassium Chloride Carbon Dioxide 31 H BUN 77 H Creatinine 2.9 H Glucose 250 H POC Glucose 275 H 234 H Lactic Acid Calcium Phosphorus Ferritin Total Bilirubin Direct Bilirubin AST ALT Lactate Dehydrogenase Total Creatine Kinase Troponin T Total Protein Albumin Triglycerides Arterial Blood Glucose Arterial Blood Ionized Calcium Urine pH Urine Creatinine Salicylates Acetaminophen Coronavirus (PCR) 09/16/20 09/16/20 09/17/20 17:40 23:23 00:01 WBC RBC Hgb Hct MCHC RDW Lymph % (Auto) [place] % (Auto) Lymph # (Auto) [place]a # (Auto) Seg Neutrophils % Seg Neuts % (Manual) Lymphocytes % (Manual) Monocytes % (Manual) Nucleated RBC % Seg Neutrophils # Seg Neutrophils # Man Lymphocytes # (Manual) Monocytes # (Manual) PT INR D-Dimer ABG pH POC ABG pCO2 POC ABG pO2 ABG pO2 ABG HCO3 ABG Base Excess ABG Hemoglobin ABG Oxyhemoglobin ABG Sodium ABG Potassium ABG Chloride ABG Glucose Carboxyhemoglobin Sodium Potassium Chloride Carbon Dioxide BUN Creatinine Glucose POC Glucose 172 H 161 H Lactic Acid 2.10 H* Calcium Phosphorus Ferritin Total Bilirubin Direct Bilirubin AST ALT Lactate Dehydrogenase Total Creatine Kinase Troponin T Total Protein Albumin Triglycerides Arterial Blood Glucose Arterial Blood Ionized Calcium Urine pH Urine Creatinine Salicylates Acetaminophen Coronavirus (PCR) 09/17/20 09/17/20 09/17/20 04:00 04:00 05:09 WBC 19.5 H RBC 3.03 L Hgb 8.6 L Hct 26.3 L MCHC RDW 19.4 H Lymph % (Auto) 8.7 L [place] % (Auto) 13.7 H Lymph # (Auto) [place]a # (Auto) 2.7 H Seg Neutrophils % 76.9 H Seg Neuts % (Manual) Lymphocytes % (Manual) Monocytes % (Manual) Nucleated RBC % Seg Neutrophils # 15.0 H Seg Neutrophils # Man Lymphocytes # (Manual) Monocytes # (Manual) PT INR D-Dimer ABG pH POC ABG pCO2 POC ABG pO2 ABG pO2 ABG HCO3 ABG Base Excess ABG Hemoglobin ABG Oxyhemoglobin ABG Sodium ABG Potassium ABG Chloride ABG Glucose Carboxyhemoglobin Sodium 146 H Potassium 3.1 L Chloride Carbon Dioxide BUN 79 H Creatinine 2.6 H Glucose 122 H POC Glucose 116 H Lactic Acid Calcium Phosphorus Ferritin Total Bilirubin Direct Bilirubin AST 64 H ALT 516 H Lactate Dehydrogenase Total Creatine Kinase Troponin T Total Protein 5.7 L Albumin 2.8 L Triglycerides Arterial Blood Glucose Arterial Blood Ionized Calcium Urine pH Urine Creatinine Salicylates Acetaminophen Coronavirus (PCR) 09/17/20 09/17/20 09/18/20 13:52 17:38 05:16 WBC RBC Hgb Hct MCHC RDW Lymph % (Auto) [place] % (Auto) Lymph # (Auto) [place]a # (Auto) Seg Neutrophils % Seg Neuts % (Manual) Lymphocytes % (Manual) Monocytes % (Manual) Nucleated RBC % Seg Neutrophils # Seg Neutrophils # Man Lymphocytes # (Manual) Monocytes # (Manual) PT INR D-Dimer ABG pH POC ABG pCO2 POC ABG pO2 ABG pO2 ABG HCO3 ABG Base Excess ABG Hemoglobin ABG Oxyhemoglobin ABG Sodium ABG Potassium ABG Chloride ABG Glucose Carboxyhemoglobin Sodium Potassium Chloride Carbon Dioxide BUN Creatinine Glucose POC Glucose 68 L 126 H Lactic Acid 2.90 H* Calcium Phosphorus Ferritin Total Bilirubin Direct Bilirubin AST ALT Lactate Dehydrogenase Total Creatine Kinase Troponin T Total Protein Albumin Triglycerides Arterial Blood Glucose Arterial Blood Ionized Calcium Urine pH Urine Creatinine Salicylates Acetaminophen Coronavirus (PCR) 09/18/20 09/18/20 09/18/20 05:30 05:30 11:42 WBC 18.2 H RBC 3.18 L Hgb 9.0 L Hct 27.2 L MCHC RDW 18.8 H Lymph % (Auto) [place]a % (Auto) Lymph # (Auto) [place]a # (Auto) Seg Neutrophils % Seg Neuts % (Manual) Lymphocytes % (Manual) Monocytes % (Manual) Nucleated RBC % Seg Neutrophils # Seg Neutrophils # Man Lymphocytes # (Manual) Monocytes # (Manual) PT INR D-Dimer ABG pH POC ABG pCO2 POC ABG pO2 ABG pO2 ABG HCO3 ABG Base Excess ABG Hemoglobin ABG Oxyhemoglobin ABG Sodium ABG Potassium ABG Chloride ABG Glucose Carboxyhemoglobin Sodium Potassium 3.1 L Chloride Carbon Dioxide BUN 73 H Creatinine 2.6 H Glucose 154 H POC Glucose 140 H Lactic Acid Calcium Phosphorus Ferritin Total Bilirubin Direct Bilirubin AST ALT Lactate Dehydrogenase Total Creatine Kinase Troponin T Total Protein Albumin Triglycerides Arterial Blood Glucose Arterial Blood Ionized Calcium Urine pH Urine Creatinine Salicylates Acetaminophen Coronavirus (PCR) 09/18/20 09/18/20 09/19/20 18:15 23:37 05:13 WBC 22.8 H RBC 3.30 L Hgb 9.2 L Hct 28.1 L MCHC RDW 18.2 H Lymph % (Auto) [place]a % (Auto) Lymph # (Auto) [place]a # (Auto) Seg Neutrophils % Seg Neuts % (Manual) 87.0 H Lymphocytes % (Manual) 5.0 L Monocytes % (Manual) Nucleated RBC % Seg Neutrophils # Seg Neutrophils # Man 19.8 H Lymphocytes # (Manual) 1.1 L Monocytes # (Manual) 1.6 H PT INR D-Dimer ABG pH POC ABG pCO2 POC ABG pO2 ABG pO2 ABG HCO3 ABG Base Excess ABG Hemoglobin ABG Oxyhemoglobin ABG Sodium ABG Potassium ABG Chloride ABG Glucose Carboxyhemoglobin Sodium Potassium Chloride Carbon Dioxide BUN Creatinine Glucose POC Glucose 149 H 153 H Lactic Acid Calcium Phosphorus Ferritin Total Bilirubin Direct Bilirubin AST ALT Lactate Dehydrogenase Total Creatine Kinase Troponin T Total Protein Albumin Triglycerides Arterial Blood Glucose Arterial Blood Ionized Calcium Urine pH Urine Creatinine Salicylates Acetaminophen Coronavirus (PCR) 09/19/20 09/19/20 09/19/20 05:13 05:25 11:56 WBC RBC Hgb Hct MCHC RDW Lymph % (Auto) [place]a % (Auto) Lymph # (Auto) [place]a # (Auto) Seg Neutrophils % Seg Neuts % (Manual) Lymphocytes % (Manual) Monocytes % (Manual) Nucleated RBC % Seg Neutrophils # Seg Neutrophils # Man Lymphocytes # (Manual) Monocytes # (Manual) PT INR D-Dimer ABG pH POC ABG pCO2 POC ABG pO2 ABG pO2 ABG HCO3 ABG Base Excess ABG Hemoglobin ABG Oxyhemoglobin ABG Sodium ABG Potassium ABG Chloride ABG Glucose Carboxyhemoglobin Sodium Potassium Chloride Carbon Dioxide BUN 55 H Creatinine 2.3 H Glucose 196 H POC Glucose 168 H 137 H Lactic Acid Calcium Phosphorus Ferritin Total Bilirubin Direct Bilirubin AST ALT Lactate Dehydrogenase Total Creatine Kinase Troponin T Total Protein Albumin Triglycerides Arterial Blood Glucose Arterial Blood Ionized Calcium Urine pH Urine Creatinine Salicylates Acetaminophen Coronavirus (PCR) 09/19/20 09/19/20 09/20/20 17:43 23:43 05:02 WBC RBC Hgb Hct MCHC RDW Lymph % (Auto) [place]a % (Auto) Lymph # (Auto) [place]a # (Auto) Seg Neutrophils % Seg Neuts % (Manual) Lymphocytes % (Manual) Monocytes % (Manual) Nucleated RBC % Seg Neutrophils # Seg Neutrophils # Man Lymphocytes # (Manual) Monocytes # (Manual) PT INR D-Dimer ABG pH POC ABG pCO2 POC ABG pO2 ABG pO2 ABG HCO3 ABG Base Excess ABG Hemoglobin ABG Oxyhemoglobin ABG Sodium ABG Potassium ABG Chloride ABG Glucose Carboxyhemoglobin Sodium Potassium Chloride Carbon Dioxide BUN Creatinine Glucose POC Glucose 114 H 136 H 163 H Lactic Acid Calcium Phosphorus Ferritin Total Bilirubin Direct Bilirubin AST ALT Lactate Dehydrogenase Total Creatine Kinase Troponin T Total Protein Albumin Triglycerides Arterial Blood Glucose Arterial Blood Ionized Calcium Urine pH Urine Creatinine Salicylates Acetaminophen Coronavirus (PCR) 09/20/20 09/20/20 09/20/20 05:36 05:36 11:10 WBC 20.1 H RBC 3.07 L Hgb 8.5 L Hct 26.4 L MCHC RDW 18.6 H Lymph % (Auto) 9.6 L [place] % (Auto) 9.6 H Lymph # (Auto) [place]a # (Auto) 1.9 H Seg Neutrophils % 79.0 H Seg Neuts % (Manual) Lymphocytes % (Manual) Monocytes % (Manual) Nucleated RBC % Seg Neutrophils # 15.9 H Seg Neutrophils # Man Lymphocytes # (Manual) Monocytes # (Manual) PT INR D-Dimer ABG pH POC ABG pCO2 POC ABG pO2 ABG pO2 ABG HCO3 ABG Base Excess ABG Hemoglobin ABG Oxyhemoglobin ABG Sodium ABG Potassium ABG Chloride ABG Glucose Carboxyhemoglobin Sodium Potassium 3.3 L Chloride Carbon Dioxide BUN 76 H Creatinine 3.6 H D Glucose 213 H POC Glucose 167 H Lactic Acid Calcium Phosphorus Ferritin Total Bilirubin Direct Bilirubin AST ALT Lactate Dehydrogenase Total Creatine Kinase Troponin T Total Protein Albumin Triglycerides Arterial Blood Glucose Arterial Blood Ionized Calcium Urine pH Urine Creatinine Salicylates Acetaminophen Coronavirus (PCR) 09/20/20 09/20/20 09/20/20 14:02 17:24 23:30 WBC RBC Hgb Hct MCHC RDW Lymph % (Auto) [place]a % (Auto) Lymph # (Auto) Mora # (Auto) Seg Neutrophils % Seg Neuts % (Manual) Lymphocytes % (Manual) Monocytes % (Manual) Nucleated RBC % Seg Neutrophils # Seg Neutrophils # Man Lymphocytes # (Manual) Monocytes # (Manual) PT INR D-Dimer ABG pH POC ABG pCO2 POC ABG pO2 ABG pO2 ABG HCO3 ABG Base Excess ABG Hemoglobin ABG Oxyhemoglobin ABG Sodium ABG Potassium ABG Chloride ABG Glucose Carboxyhemoglobin Sodium Potassium Chloride Carbon Dioxide BUN Creatinine Glucose POC Glucose 164 H 146 H 147 H Lactic Acid Calcium Phosphorus Ferritin Total Bilirubin Direct Bilirubin AST ALT Lactate Dehydrogenase Total Creatine Kinase Troponin T Total Protein Albumin Triglycerides Arterial Blood Glucose Arterial Blood Ionized Calcium Urine pH Urine Creatinine Salicylates Acetaminophen Coronavirus (PCR) 09/21/20 09/21/20 09/21/20 05:00 05:00 05:24 WBC 17.4 H RBC 2.95 L Hgb 8.3 L Hct 25.8 L MCHC RDW 19.3 H Lymph % (Auto) 11.1 L [place] % (Auto) 11.1 H Lymph # (Auto) [place]a # (Auto) 1.9 H Seg Neutrophils % 75.9 H Seg Neuts % (Manual) Lymphocytes % (Manual) Monocytes % (Manual) Nucleated RBC % Seg Neutrophils # 13.2 H Seg Neutrophils # Man Lymphocytes # (Manual) Monocytes # (Manual) PT INR D-Dimer ABG pH POC ABG pCO2 POC ABG pO2 ABG pO2 ABG HCO3 ABG Base Excess ABG Hemoglobin ABG Oxyhemoglobin ABG Sodium ABG Potassium ABG Chloride ABG Glucose Carboxyhemoglobin Sodium Potassium Chloride Carbon Dioxide BUN 60 H Creatinine 3.5 H Glucose 185 H POC Glucose 139 H Lactic Acid Calcium Phosphorus Ferritin Total Bilirubin Direct Bilirubin AST ALT Lactate Dehydrogenase Total Creatine Kinase Troponin T Total Protein Albumin Triglycerides Arterial Blood Glucose Arterial Blood Ionized Calcium Urine pH Urine Creatinine Salicylates Acetaminophen Coronavirus (PCR) 09/21/20 09/21/20 09/21/20 11:59 17:59 23:32 WBC RBC Hgb Hct MCHC RDW Lymph % (Auto) Mora % (Auto) Lymph # (Auto) Mora # (Auto) Seg Neutrophils % Seg Neuts % (Manual) Lymphocytes % (Manual) Monocytes % (Manual) Nucleated RBC % Seg Neutrophils # Seg Neutrophils # Man Lymphocytes # (Manual) Monocytes # (Manual) PT INR D-Dimer ABG pH POC ABG pCO2 POC ABG pO2 ABG pO2 ABG HCO3 ABG Base Excess ABG Hemoglobin ABG Oxyhemoglobin ABG Sodium ABG Potassium ABG Chloride ABG Glucose Carboxyhemoglobin Sodium Potassium Chloride Carbon Dioxide BUN Creatinine Glucose POC Glucose 183 H 141 H 162 H Lactic Acid Calcium Phosphorus Ferritin Total Bilirubin Direct Bilirubin AST ALT Lactate Dehydrogenase Total Creatine Kinase Troponin T Total Protein Albumin Triglycerides Arterial Blood Glucose Arterial Blood Ionized Calcium Urine pH Urine Creatinine Salicylates Acetaminophen Coronavirus (PCR) 02/07/3109/22/20 09/22/20 05:32 12:07 17:53 WBC RBC Hgb Hct MCHC RDW Lymph % (Auto) [place]a % (Auto) Lymph # (Auto) Mora # (Auto) Seg Neutrophils % Seg Neuts % (Manual) Lymphocytes % (Manual) Monocytes % (Manual) Nucleated RBC % Seg Neutrophils # Seg Neutrophils # Man Lymphocytes # (Manual) Monocytes # (Manual) PT INR D-Dimer ABG pH POC ABG pCO2 POC ABG pO2 ABG pO2 ABG HCO3 ABG Base Excess ABG Hemoglobin ABG Oxyhemoglobin ABG Sodium ABG Potassium ABG Chloride ABG Glucose Carboxyhemoglobin Sodium Potassium Chloride Carbon Dioxide BUN Creatinine Glucose POC Glucose 172 H 169 H 178 H Lactic Acid Calcium Phosphorus Ferritin Total Bilirubin Direct Bilirubin AST ALT Lactate Dehydrogenase Total Creatine Kinase Troponin T Total Protein Albumin Triglycerides Arterial Blood Glucose Arterial Blood Ionized Calcium Urine pH Urine Creatinine Salicylates Acetaminophen Coronavirus (PCR) 09/22/20 09/23/20 09/23/20 23:34 05:21 06:05 WBC RBC Hgb Hct MCHC RDW Lymph % (Auto) Mora % (Auto) Lymph # (Auto) Mora # (Auto) Seg Neutrophils % Seg Neuts % (Manual) Lymphocytes % (Manual) Monocytes % (Manual) Nucleated RBC % Seg Neutrophils # Seg Neutrophils # Man Lymphocytes # (Manual) Monocytes # (Manual) PT INR D-Dimer ABG pH POC ABG pCO2 POC ABG pO2 ABG pO2 ABG HCO3 ABG Base Excess ABG Hemoglobin ABG Oxyhemoglobin ABG Sodium ABG Potassium ABG Chloride ABG Glucose Carboxyhemoglobin Sodium 147 H Potassium Chloride 109.2 H Carbon Dioxide 21 L BUN 54 H Creatinine 4.2 H Glucose 193 H POC Glucose 151 H 168 H Lactic Acid Calcium Phosphorus Ferritin Total Bilirubin Direct Bilirubin AST ALT Lactate Dehydrogenase Total Creatine Kinase Troponin T Total Protein Albumin Triglycerides Arterial Blood Glucose Arterial Blood Ionized Calcium Urine pH Urine Creatinine Salicylates Acetaminophen Coronavirus (PCR) 09/23/20 09/23/20 09/23/20 12:30 17:52 23:16 WBC RBC Hgb Hct MCHC RDW Lymph % (Auto) [place]a % (Auto) Lymph # (Auto) Mora # (Auto) Seg Neutrophils % Seg Neuts % (Manual) Lymphocytes % (Manual) Monocytes % (Manual) Nucleated RBC % Seg Neutrophils # Seg Neutrophils # Man Lymphocytes # (Manual) Monocytes # (Manual) PT INR D-Dimer ABG pH POC ABG pCO2 POC ABG pO2 ABG pO2 ABG HCO3 ABG Base Excess ABG Hemoglobin ABG Oxyhemoglobin ABG Sodium ABG Potassium ABG Chloride ABG Glucose Carboxyhemoglobin Sodium Potassium Chloride Carbon Dioxide BUN Creatinine Glucose POC Glucose 170 H 164 H 160 H Lactic Acid Calcium Phosphorus Ferritin Total Bilirubin Direct Bilirubin AST ALT Lactate Dehydrogenase Total Creatine Kinase Troponin T Total Protein Albumin Triglycerides Arterial Blood Glucose Arterial Blood Ionized Calcium Urine pH Urine Creatinine Salicylates Acetaminophen Coronavirus (PCR) 09/24/20 09/24/20 09/24/20 05:22 05:44 12:32 WBC RBC Hgb Hct MCHC RDW Lymph % (Auto) Mora % (Auto) Lymph # (Auto) Mora # (Auto) Seg Neutrophils % Seg Neuts % (Manual) Lymphocytes % (Manual) Monocytes % (Manual) Nucleated RBC % Seg Neutrophils # Seg Neutrophils # Man Lymphocytes # (Manual) Monocytes # (Manual) PT INR D-Dimer ABG pH POC ABG pCO2 POC ABG pO2 ABG pO2 ABG HCO3 ABG Base Excess ABG Hemoglobin ABG Oxyhemoglobin ABG Sodium ABG Potassium ABG Chloride ABG Glucose Carboxyhemoglobin Sodium 148 H Potassium Chloride 109.2 H Carbon Dioxide BUN 61 H Creatinine 4.9 H Glucose 176 H POC Glucose 150 H 165 H Lactic Acid Calcium Phosphorus Ferritin Total Bilirubin Direct Bilirubin AST ALT Lactate Dehydrogenase Total Creatine Kinase Troponin T Total Protein Albumin Triglycerides Arterial Blood Glucose Arterial Blood Ionized Calcium Urine pH Urine Creatinine Salicylates Acetaminophen Coronavirus (PCR) 09/24/20 09/24/20 09/25/20 17:28 23:18 05:18 WBC RBC Hgb Hct MCHC RDW Lymph % (Auto) Mora % (Auto) Lymph # (Auto) Mora # (Auto) Seg Neutrophils % Seg Neuts % (Manual) Lymphocytes % (Manual) Monocytes % (Manual) Nucleated RBC % Seg Neutrophils # Seg Neutrophils # Man Lymphocytes # (Manual) Monocytes # (Manual) PT INR D-Dimer ABG pH POC ABG pCO2 POC ABG pO2 ABG pO2 ABG HCO3 ABG Base Excess ABG Hemoglobin ABG Oxyhemoglobin ABG Sodium ABG Potassium ABG Chloride ABG Glucose Carboxyhemoglobin Sodium 149 H Potassium 3.3 L Chloride 109.6 H Carbon Dioxide BUN 70 H Creatinine 5.6 H Glucose 196 H POC Glucose 153 H 177 H Lactic Acid Calcium Phosphorus Ferritin Total Bilirubin Direct Bilirubin AST 55 H ALT 74 H Lactate Dehydrogenase Total Creatine Kinase Troponin T Total Protein Albumin 2.6 L Triglycerides Arterial Blood Glucose Arterial Blood Ionized Calcium Urine pH Urine Creatinine Salicylates Acetaminophen Coronavirus (PCR) 09/25/20 09/25/20 09/25/20 05:18 11:47 17:04 WBC RBC Hgb Hct MCHC RDW Lymph % (Auto) Mora % (Auto) Lymph # (Auto) Mora # (Auto) Seg Neutrophils % Seg Neuts % (Manual) Lymphocytes % (Manual) Monocytes % (Manual) Nucleated RBC % Seg Neutrophils # Seg Neutrophils # Man Lymphocytes # (Manual) Monocytes # (Manual) PT INR D-Dimer ABG pH POC ABG pCO2 POC ABG pO2 ABG pO2 ABG HCO3 ABG Base Excess ABG Hemoglobin ABG Oxyhemoglobin ABG Sodium ABG Potassium ABG Chloride ABG Glucose Carboxyhemoglobin Sodium Potassium Chloride Carbon Dioxide BUN Creatinine Glucose POC Glucose 159 H 169 H 142 H Lactic Acid Calcium Phosphorus Ferritin Total Bilirubin Direct Bilirubin AST ALT Lactate Dehydrogenase Total Creatine Kinase Troponin T Total Protein Albumin Triglycerides Arterial Blood Glucose Arterial Blood Ionized Calcium Urine pH Urine Creatinine Salicylates Acetaminophen Coronavirus (PCR) 09/25/20 09/26/20 09/26/20 23:20 04:00 05:00 WBC RBC 2.93 L Hgb 8.5 L Hct 25.8 L MCHC RDW 18.5 H Lymph % (Auto) Mora % (Auto) 11.3 H Lymph # (Auto) Mora # (Auto) 1.1 H Seg Neutrophils % 72.0 H Seg Neuts % (Manual) Lymphocytes % (Manual) Monocytes % (Manual) Nucleated RBC % Seg Neutrophils # Seg Neutrophils # Man Lymphocytes # (Manual) Monocytes # (Manual) PT INR D-Dimer ABG pH POC ABG pCO2 POC ABG pO2 ABG pO2 ABG HCO3 ABG Base Excess ABG Hemoglobin ABG Oxyhemoglobin ABG Sodium ABG Potassium ABG Chloride ABG Glucose Carboxyhemoglobin Sodium Potassium 3.4 L Chloride Carbon Dioxide BUN 49 H Creatinine 4.4 H Glucose 179 H POC Glucose 138 H Lactic Acid Calcium Phosphorus Ferritin Total Bilirubin Direct Bilirubin AST ALT Lactate Dehydrogenase Total Creatine Kinase Troponin T Total Protein Albumin Triglycerides Arterial Blood Glucose Arterial Blood Ionized Calcium Urine pH Urine Creatinine Salicylates Acetaminophen Coronavirus (PCR) 09/26/20 09/26/20 09/26/20 05:18 11:59 17:37 WBC RBC Hgb Hct MCHC RDW Lymph % (Auto) Mora % (Auto) Lymph # (Auto) Mora # (Auto) Seg Neutrophils % Seg Neuts % (Manual) Lymphocytes % (Manual) Monocytes % (Manual) Nucleated RBC % Seg Neutrophils # Seg Neutrophils # Man Lymphocytes # (Manual) Monocytes # (Manual) PT INR D-Dimer ABG pH POC ABG pCO2 POC ABG pO2 ABG pO2 ABG HCO3 ABG Base Excess ABG Hemoglobin ABG Oxyhemoglobin ABG Sodium ABG Potassium ABG Chloride ABG Glucose Carboxyhemoglobin Sodium Potassium Chloride Carbon Dioxide BUN Creatinine Glucose POC Glucose 155 H 165 H 132 H Lactic Acid Calcium Phosphorus Ferritin Total Bilirubin Direct Bilirubin AST ALT Lactate Dehydrogenase Total Creatine Kinase Troponin T Total Protein Albumin Triglycerides Arterial Blood Glucose Arterial Blood Ionized Calcium Urine pH Urine Creatinine Salicylates Acetaminophen Coronavirus (PCR) 09/26/20 09/27/20 09/27/20 23:35 04:47 04:47 WBC RBC 3.24 L Hgb 9.3 L Hct 28.6 L MCHC RDW 18.2 H Lymph % (Auto) Mora % (Auto) 11.6 H Lymph # (Auto) Mora # (Auto) 1.0 H Seg Neutrophils % Seg Neuts % (Manual) Lymphocytes % (Manual) Monocytes % (Manual) Nucleated RBC % Seg Neutrophils # Seg Neutrophils # Man Lymphocytes # (Manual) Monocytes # (Manual) PT INR D-Dimer ABG pH POC ABG pCO2 POC ABG pO2 ABG pO2 ABG HCO3 ABG Base Excess ABG Hemoglobin ABG Oxyhemoglobin ABG Sodium ABG Potassium ABG Chloride ABG Glucose Carboxyhemoglobin Sodium Potassium Chloride Carbon Dioxide BUN 54 H Creatinine 4.7 H Glucose 218 H POC Glucose 180 H Lactic Acid Calcium Phosphorus Ferritin Total Bilirubin Direct Bilirubin AST ALT Lactate Dehydrogenase Total Creatine Kinase Troponin T Total Protein Albumin Triglycerides Arterial Blood Glucose Arterial Blood Ionized Calcium Urine pH Urine Creatinine Salicylates Acetaminophen Coronavirus (PCR) 09/27/20 05:14 WBC RBC Hgb Hct MCHC RDW Lymph % (Auto) Mora % (Auto) Lymph # (Auto) Mora # (Auto) Seg Neutrophils % Seg Neuts % (Manual) Lymphocytes % (Manual) Monocytes % (Manual) Nucleated RBC % Seg Neutrophils # Seg Neutrophils # Man Lymphocytes # (Manual) Monocytes # (Manual) PT INR D-Dimer ABG pH POC ABG pCO2 POC ABG pO2 ABG pO2 ABG HCO3 ABG Base Excess ABG Hemoglobin ABG Oxyhemoglobin ABG Sodium ABG Potassium ABG Chloride ABG Glucose Carboxyhemoglobin Sodium Potassium Chloride Carbon Dioxide BUN Creatinine Glucose POC Glucose 197 H Lactic Acid Calcium Phosphorus Ferritin Total Bilirubin Direct Bilirubin AST ALT Lactate Dehydrogenase Total Creatine Kinase Troponin T Total Protein Albumin Triglycerides Arterial Blood Glucose Arterial Blood Ionized Calcium Urine pH Urine Creatinine Salicylates Acetaminophen Coronavirus (PCR)
--- NOTE | 2020-09-27 15:22 | Progress Note ---
Assessment and Plan Impression: * Nonoliguric RYAN secondary to ATN * Severe hyperkalemia - resolved * COVID 19 PNA * s/p OOH cardiac arrest * Acute hypoxic respiratory failure * Seizure activity * Anemia * Hypernatremia Plan: * Patient is s/p emergent HD - 09/08 * Continue MWF for now, due today, creatinine continues to uptrend off HD indicating minimal renal recovery and need for ongoing HD, creatinine 4.4->4.7 off HD * Does remain non-oliguric however, ~500cc urine output over past 24 hours * Check labs daily * Strict I/O * Will continue to monitor for renal recovery * Keep MAP > 65 * Vent management per CCM * Steroids per primary team/ID * Dose medications for renal function * Avoid potential nephrotoxins * Prognosis is guarded Subjective Date of service: 09/27/20 Principal diagnosis: Abnormal LFTs, s/p cardiac arrest, acute kidney injury with ATN Interval history: On CPAP via T-piece, no acute issues noted Reviewed chart extensively including primary and specialist team notes Objective - Exam Narrative Exam: Direct examination deferred to avoid PPE overuse in COVID-19 pandemic. Seen through ICU window, ventilated on trach. - Vital Signs Vital signs: Vital Signs - 12hr 09/27/20 09/27/20 09/27/20 03:25 03:30 03:45 Temperature 97.3 F L Pulse Rate 63 59 L Pulse Rate [ From Monitor] Respiratory 27 H 16 Rate Blood Pressure 97/54 97/54 O2 Sat by Pulse 100 100 Oximetry O2 Sat by Pulse Oximetry [ Assessment] O2 Sat by Pulse Oximetry [ Bilateral Throughout] 09/27/20 09/27/20 09/27/20 04:00 04:15 04:31 Temperature Pulse Rate 57 L 59 L 62 Pulse Rate [ 58 L From Monitor] Respiratory 24 21 19 Rate Blood Pressure 97/54 99/48 O2 Sat by Pulse 100 100 Oximetry O2 Sat by Pulse Oximetry [ Assessment] O2 Sat by Pulse Oximetry [ Bilateral Throughout] 09/27/20 09/27/20 09/27/20 04:45 05:00 05:13 Temperature Pulse Rate 58 L 57 L 56 L Pulse Rate [ From Monitor] Respiratory 21 24 Rate Blood Pressure 124/67 132/70 132/70 O2 Sat by Pulse 100 100 100 Oximetry O2 Sat by Pulse Oximetry [ Assessment] O2 Sat by Pulse Oximetry [ Bilateral Throughout] 09/27/20 09/27/20 09/27/20 05:15 05:31 05:45 Temperature Pulse Rate 56 L 57 L 58 L Pulse Rate [ From Monitor] Respiratory 23 24 21 Rate Blood Pressure 132/70 137/70 137/70 O2 Sat by Pulse 100 100 100 Oximetry O2 Sat by Pulse Oximetry [ Assessment] O2 Sat by Pulse Oximetry [ Bilateral Throughout] 09/27/20 09/27/20 09/27/20 06:00 06:15 06:30 Temperature Pulse Rate 57 L 57 L 58 L Pulse Rate [ From Monitor] Respiratory 17 18 16 Rate Blood Pressure 135/68 135/68 138/72 O2 Sat by Pulse 100 100 100 Oximetry O2 Sat by Pulse Oximetry [ Assessment] O2 Sat by Pulse Oximetry [ Bilateral Throughout] 09/27/20 09/27/20 09/27/20 06:45 07:00 07:15 Temperature 98.2 F Pulse Rate 59 L 57 L 58 L Pulse Rate [ From Monitor] Respiratory 16 18 23 Rate Blood Pressure 138/72 137/70 137/70 O2 Sat by Pulse 100 100 100 Oximetry O2 Sat by Pulse Oximetry [ Assessment] O2 Sat by Pulse Oximetry [ Bilateral Throughout] 09/27/20 09/27/20 09/27/20 07:30 07:45 08:00 Temperature Pulse Rate 58 L 58 L 59 L Pulse Rate [ 58 L From Monitor] Respiratory 20 21 22 Rate Blood Pressure 130/73 130/73 131/64 O2 Sat by Pulse 100 100 100 Oximetry O2 Sat by Pulse Oximetry [ Assessment] O2 Sat by Pulse Oximetry [ Bilateral Throughout] 09/27/20 09/27/20 09/27/20 08:15 08:30 08:44 Temperature Pulse Rate 59 L 61 57 L Pulse Rate [ From Monitor] Respiratory 21 12 Rate Blood Pressure 131/64 128/69 135/68 O2 Sat by Pulse 100 100 100 Oximetry O2 Sat by Pulse Oximetry [ Assessment] O2 Sat by Pulse Oximetry [ Bilateral Throughout] 09/27/20 09/27/20 09/27/20 08:45 08:46 09:00 Temperature Pulse Rate 59 L 57 L Pulse Rate [ From Monitor] Respiratory 20 16 Rate Blood Pressure 128/69 142/69 O2 Sat by Pulse 100 100 Oximetry O2 Sat by Pulse 98 Oximetry [ Assessment] O2 Sat by Pulse Oximetry [ Bilateral Throughout] 09/27/20 09/27/20 09/27/20 09:15 09:31 09:45 Temperature Pulse Rate 57 L 57 L 56 L Pulse Rate [ From Monitor] Respiratory 18 23 31 H Rate Blood Pressure 142/69 126/64 126/64 O2 Sat by Pulse 100 100 100 Oximetry O2 Sat by Pulse Oximetry [ Assessment] O2 Sat by Pulse Oximetry [ Bilateral Throughout] 09/27/20 09/27/20 09/27/20 09:53 09:57 10:01 Temperature 95.3 F L Pulse Rate 56 L 56 L 54 L Pulse Rate [ From Monitor] Respiratory 35 H 27 H Rate Blood Pressure 144/69 142/71 145/70 O2 Sat by Pulse 100 Oximetry O2 Sat by Pulse Oximetry [ Assessment] O2 Sat by Pulse 100 Oximetry [ Bilateral Throughout] 09/27/20 09/27/20 09/27/20 10:15 10:30 10:45 Temperature Pulse Rate 57 L 57 L 59 L Pulse Rate [ From Monitor] Respiratory 33 H 31 H 32 H Rate Blood Pressure 143/71 139/73 130/71 O2 Sat by Pulse 100 100 100 Oximetry O2 Sat by Pulse Oximetry [ Assessment] O2 Sat by Pulse Oximetry [ Bilateral Throughout] 09/27/20 09/27/20 09/27/20 10:55 11:00 11:15 Temperature Pulse Rate 60 60 Pulse Rate [ From Monitor] Respiratory 29 H 33 H Rate Blood Pressure 133/65 119/64 O2 Sat by Pulse 100 100 100 Oximetry O2 Sat by Pulse Oximetry [ Assessment] O2 Sat by Pulse Oximetry [ Bilateral Throughout] 09/27/20 09/27/20 09/27/20 11:30 11:31 11:45 Temperature Pulse Rate 58 L 59 L 59 L Pulse Rate [ From Monitor] Respiratory 22 33 H Rate Blood Pressure 133/61 133/61 132/71 O2 Sat by Pulse 100 100 Oximetry O2 Sat by Pulse Oximetry [ Assessment] O2 Sat by Pulse Oximetry [ Bilateral Throughout] 09/27/20 09/27/20 09/27/20 12:00 12:15 12:30 Temperature Pulse Rate 60 60 62 Pulse Rate [ 59 L From Monitor] Respiratory 33 H 33 H 30 H Rate Blood Pressure 135/71 130/69 125/57 O2 Sat by Pulse 100 100 98 Oximetry O2 Sat by Pulse Oximetry [ Assessment] O2 Sat by Pulse Oximetry [ Bilateral Throughout] 09/27/20 09/27/20 09/27/20 12:45 13:00 13:15 Temperature Pulse Rate 61 64 61 Pulse Rate [ From Monitor] Respiratory 33 H 33 H 38 H Rate Blood Pressure 132/66 138/69 139/69 O2 Sat by Pulse 98 100 100 Oximetry O2 Sat by Pulse Oximetry [ Assessment] O2 Sat by Pulse Oximetry [ Bilateral Throughout] 09/27/20 09/27/20 09/27/20 13:27 13:30 13:32 Temperature Pulse Rate 60 61 61 Pulse Rate [ From Monitor] Respiratory 34 H Rate Blood Pressure 134/59 137/57 137/57 O2 Sat by Pulse 100 Oximetry O2 Sat by Pulse Oximetry [ Assessment] O2 Sat by Pulse Oximetry [ Bilateral Throughout] 09/27/20 13:45 Temperature 95.1 F L Pulse Rate 60 Pulse Rate [ From Monitor] Respiratory 33 H Rate Blood Pressure 137/67 O2 Sat by Pulse 100 Oximetry O2 Sat by Pulse Oximetry [ Assessment] O2 Sat by Pulse 100 Oximetry [ Bilateral Throughout] - Lab 09/27/20 04:47 09/27/20 04:47 Most recent lab results ABG pH 7.442 (7.320-7.450) 09/14/20 03:54 ABG pCO2 33.4 mm Hg 09/11/20 05:40 ABG pO2 112.1 mm Hg (80.0-90.0) H 09/11/20 05:40 ABG HCO3 28.1 mmol/L (20.0-26.0) H 09/11/20 05:40 ABG O2 Saturation 98.4 % (95.0-99.0) 09/11/20 05:40 Calcium 9.1 mg/dL (8.4-10.2) 09/27/20 04:47 Phosphorus 8.00 mg/dL (2.5-4.5) H 09/08/20 12:02 Magnesium 1.80 mg/dL (1.7-2.3) 09/08/20 12:02 Urine Creatinine 182.4 mg/dL (0.1-20.0) H 09/08/20 Unknown Urine Sodium 40 mmol/L 09/08/20 Unknown Medications & Allergies - Medications Allergies/Adverse Reactions: Allergies No Known Allergies Allergy (Verified 09/21/20 21:00) Verified with , no known drug allergies. Home Medications: Home Medications Medication Instructions Recorded Confirmed Last Taken Type Albuterol Sulfate 60 mcg IH PRN 09/11/20 09/11/20 Unknown History Cholecalciferol (Vitamin D3) 25 tab PO DAILY 09/11/20 09/11/20 Unknown History Cozaar 25 tab PO DAILY 09/11/20 09/11/20 Unknown History HumaLOG 14 unit SQ AC 09/11/20 09/11/20 Unknown History Hydralazine HCl 50 tab PO TID 09/11/20 09/11/20 Unknown History Isosorbide Dinitrate 30 mg PO DAILY 09/11/20 09/11/20 Unknown History Lantus VIAL 54 units SQ HS 09/11/20 09/11/20 Unknown History Lasix 20 tab PO DAILY 09/11/20 09/11/20 Unknown History Nifedipine 30 tab PO DAILY 09/11/20 09/11/20 Unknown History Active Medications: Generic Name Dose Route Start Last Admin Trade Name Freq PRN Reason Stop Dose Admin Acetaminophen 400 mg 09/10/20 20:50 09/14/20 23:38 Acetaminophen 325 Mg/10.15 Ml Oral Liqd Unit Dose PO 400 mg Q4HR PRN Administration Non Cardiac Pain or Temp>100.5 Lipase/Protease/Amylase 1 each 09/09/20 09:40 Lipase 10,500/Protease 25,000/Amylase 43,750 (Units) Dr Armenta FEEDTUBE PRN PRN For Clogged Feeding Tube Hydralazine HCl 50 mg 09/23/20 14:00 09/27/20 13:32 Hydralazine 25 Mg Tab PO 50 mg Q8HR TAYOLR Administration Hydrophilic Ointment 1 applic 09/07/20 13:08 Lip Therapy Vaseline TP Q2HR PRN Dry Lips Sodium Chloride 100 mls @ 999 mls/hr 09/09/20 13:36 Nacl 0.9% IV JAYJAY PRN Hypotension Levetiracetam 1,500 mg/ 115 mls @ 400 mls/hr 09/11/20 10:00 09/27/20 09:33 Dextrose IV 09/27/20 23:59 400 mls/hr BID TAYLOR Administration Valproate Sodium 1,000 mg/ 110 mls @ 100 mls/hr 09/14/20 22:00 09/27/20 09:33 Sodium Chloride IV 09/27/20 23:59 100 mls/hr Q12HR TAYLOR Administration Insulin Human Lispro 0 unit 09/12/20 12:00 09/27/20 12:53 Insulin Lispro 100 Unit/Ml SUB-Q 4 unit Q6HR TAYLOR Administration Protocol Lansoprazole 30 mg 09/11/20 11:00 09/27/20 09:37 Lansoprazole 30 Mg Solutab FEEDTUBE 30 mg BID TAYLOR Administration Levetiracetam 1,500 mg 09/28/20 10:00 Levetiracetam 500 Mg/5 Ml Oral Liqd PO BID TAYLOR Lorazepam 2 mg 09/08/20 00:14 09/14/20 13:36 Lorazepam 2 Mg/Ml Vial IV 2 mg Q4H PRN Administration Seizures Multi-Ingred Cream/Lotion/Oil/Oint 1 applic 09/07/20 13:08 09/20/20 10:50 Mineral Oil/Petrolatum, White Ophth Oint 3.5 Gm OU 1 applic Q4HR PRN Administration Dry Eye(s) Multivitamins 5 ml 09/09/20 12:00 09/27/20 09:33 Multivitamins 5 Ml Oral Liquid PO 5 ml QDAY TAYLOR Administration Ondansetron HCl 4 mg 09/07/20 17:55 09/19/20 04:00 Ondansetron 4 Mg/2 Ml Inj IV 4 mg Q8H PRN Administration Nausea And Vomiting Senna/Docusate Sodium 2 tab 09/20/20 11:00 Sennosides/Docusate Sodium 8.6/50 Mg Tab PO BID PRN Laxative Effect Simple Syrup 15 ml 09/09/20 09:40 09/17/20 17:43 Simple Syrup 15 Ml FEEDTUBE 15 ml PRN PRN Administration Hypoglycemia Simple Syrup 30 ml 09/09/20 09:40 Simple Syrup 15 Ml FEEDTUBE PRN PRN Hypoglycemia Sodium Bicarbonate 325 mg 09/09/20 09:40 Sodium Bicarbonate 325 Mg Tab FEEDTUBE PRN PRN For Clogged Feeding Tube Sodium Chloride 10 ml 09/07/20 22:00 09/27/20 09:38 Sodium Chloride 0.9% 10 Ml Flush Syringe IV 10 ml BID TAYLOR Administration Sodium Chloride 10 ml 09/07/20 17:55 Sodium Chloride 0.9% 10 Ml Flush Syringe IV PRN PRN LINE FLUSH Valproic Acid 1,000 mg 09/28/20 10:00 Valproic Acid 250 Mg/5 Ml Oral Liqd FEEDTUBE BID TAYLOR
[2020-09-28] MEDS ORDERED: SODIUM CHLORIDE 0.9% 500 ML 500 ML IV ONE (04:31)
[2020-09-28] MEDS: hydrALAZINE 25 MG TAB PO SCH ×3 (06:27→21:09)
[2020-09-28] MEDS: INSULIN LISPRO 100 UNIT/ML SUB-Q SCH ×3 (06:27→17:45)
[2020-09-28 07:35] LABS: Basophils % (Auto) 0.2 % (0.0-1.8); Eosinophils # (Auto) 0.1 K/mm3 (0.0-0.4); Eosinophils % (Auto) 1.7 % (0.0-4.3); Hematocrit 28.7 % (35.5-45.6); Hemoglobin 9.3 gm/dl (11.8-15.2); Lymphocytes # (Auto) 1.6 K/mm3 (1.2-5.4); Lymphocytes % (Auto) 18.3 % (13.4-35.0); Mean Corpuscular HGB Conc 33 % (32-34); Mean Corpuscular Volume 88 fl (84-94); Monocytes # (Auto) 1.1 K/mm3 (0.0-0.8); Monocytes % (Auto) 12.7 % (0.0-7.3); Platelet Count 164 K/mm3 (140-440); Red Blood Count 3.26 M/mm3 (3.65-5.03); Red Cell Distribution Width 18.5 % (13.2-15.2)
[2020-09-28 07:46] LABS: Calcium 9.1 mg/dL (8.4-10.2)
[2020-09-28] MEDS: MULTIVITAMINS 5 ML ORAL LIQUID PO SCH (09:48)
[2020-09-28] MEDS: levETIRAcetam 500 MG/5 ML ORAL LIQD PO SCH ×2 (09:49→21:09)
[2020-09-28] MEDS: LANSOPRAZOLE 30 MG SOLUTAB FEEDTUBE SCH ×2 (09:49→21:09)
[2020-09-28] MEDS: VALPROIC ACID 250 MG/5 ML ORAL LIQD FEEDTUBE SCH ×2 (09:49→21:09)
--- NOTE | 2020-09-28 10:22 | Progress Note ---
Assessment and Plan Assessment and plan: S/p cardiopulmonary arrest Toxic metabolic encephalopathy +/-anoxic injury Acute hypoxic respiratory failure Acute kidney injury Seizure disorder Hyperkalemia COVID-19 pneumonia Sepsis Transaminitis Morbid obesity. 09/15/2020. MRI brain for further evaluation. Continue AEDs of valproic acid and Keppra. Continue hemodialysis per nephrology recommendations. Overall prognosis remains guarded and poor. 09/16/2020. ID recommends continue to monitor patient off of antibiotics. Fever most likely of central etiology. Patient with questionable seizures versus myoclonus from anoxic brain injury. Patient unable to undergo MRI due to body habitus. Continue AEDs per neurology recommendations. Inflammatory markers elevated. Patient was recently hospitalized for COVID-19 pneumonia [place] [facility] to being hospitalized [place]. Patient not a candidate for remdesivir due to hepatic and renal failure. Viral hepatitis panel negative. Overall prognosis extremely poor. 09/17/2020. Fevers have resolved over the past 48 hours. Continue to monitor off antibiotics per ID recommendations. Patient with questionable seizures versus myoclonus from anoxic brain injury. Patient unable to undergo MRI due to body habitus. EEG is nonspecific but given CT of head findings consistent with anoxic encephalopathy, brain injury. Continue AEDs per neurology recommendations. Inflammatory markers elevated. Patient was recently hospitalized for COVID-19 pneumonia at the [facility] to being hospitalized [facility]. Patient not a candidate for remdesivir due to hepatic and renal failure. Viral hepatitis panel negative. Patient is s/p emergent HD on Friday (hyperK) and Friday - 09/08. Patient also S/p HD 09/15. Continue hemodialysis per nephrology recommendations. Patient currently on AC/PRVC mode ventilation with rate of 30, tidal volume 475, FiO2 30% and PEEP of 6. As stated in neuro note, overall prognosis is very poor. 09/18/2020. Fevers have resolved over the past 72 hours. Continue to monitor off antibiotics per ID recommendations. Leukocytosis persistent for the past 4 days. Patient with questionable seizures/myoclonus from anoxic brain injury. Patient unable to undergo MRI due to body habitus. EEG is nonspecific but given CT of head findings consistent with anoxic encephalopathy, brain injury. Continue AEDs per neurology recommendations. Inflammatory markers elevated. Patient was recently hospitalized for COVID-19 pneumonia at the [facility] being [facility]. Patient not a candidate for remdesivir due to hepatic and renal failure. Viral hepatitis panel negative. Patient currently on AC/PRVC mode ventilation with rate of 30, tidal volume 475, FiO2 30% and PEEP of 6. Overall prognosis remains guarded/poor. 09/19/2020 Fevers have resolved over the past 4 days. Continue to monitor off antibiotics per ID recommendations. Leukocytosis persistent for the past 4 days. Patient with questionable seizures/myoclonus from anoxic brain injury. Patient unable to undergo MRI due to body habitus. EEG is nonspecific but given CT of head findings consistent with anoxic encephalopathy, brain injury. Continue AEDs per neurology recommendations. Inflammatory markers elevated. Patient was recently hospitalized for COVID-19 pneumonia at the [facility] being [facility]. Patient not a candidate for remdesivir due to hepatic and renal failure. Viral hepatitis panel negative. Patient currently on AC/PRVC mode ventilation with rate of 30, tidal volume 475, FiO2 30% and PEEP of 6. Overall prognosis remains guarded/poor. 09/20/2020 -Surgery consulted for PEG and trach, will continue to follow. 09/21/2020; patient will have PEG and trach by Dr. hayes today. Prognosis is poor. Continue with current management. Throat Cutter is following for vent management. 09/22/2020; patient had PEG and trach yesterday. 09/23/2020; continue PEG Tube Feeding. 09/24/2020; continue PEG tube feeding, patient is on Keppra, lorazepam and phenytoin per neurology recommendation. Patient is on hemodialysis and nephrology is following. Management of mechanical ventilation for CCM. 09/25/2020. Continue PEG tube feeding, patient is on Keppra, lorazepam and phenytoin per neurology recommendation. Patient is on hemodialysis and nephrology is following. Management of mechanical ventilation for CCM. Continue PSV/CPAP 12/6. Continue tracheostomy care, secretion control and airway management. 09/26/2020. Patient has tolerated PSV for approximately 48 hours. I discussed with pulmonary possibility of T-piece today. Continue tracheostomy care, sec retion control and airway management. If patient tolerates T-piece trials, patient will be transferred to the floor. Continue AEDs of Keppra and phenytoin as well as Ativan as needed per neurology recommendations. Continue hemodialysis per nephrology. Continue TF with aspiration precautions. 09/27/2020. Patient continues to tolerate PSV 12/6 at 30% FiO2. T-piece trials per pulmonary. Continue tracheostomy care, secretion control and airway management. Continue AEDs of Keppra and phenytoin as well as Ativan as needed per neurology recommendations. Continue hemodialysis per nephrology. Continue TF with aspiration precautions. 09/28/2020. Patient for T-piece trials per pulmonary. Continue hemodialysis per nephrology. Continue tracheostomy care, secretion control and airway managemen t. Continue AEDs of Keppra and phenytoin as well as Ativan as needed per neurology recommendations. Continue TF with aspiration precautions. The high probability of a clinically significant, sudden or life threatening deterioration of the [cardiac, respiratory and neurological] system(s) required my full and direct attention, intervention and personal management. The aggregate critical care time was [31] minutes. This time is in addition to time spent performing reported procedures but includes the following: [x] Data Review and interpretation [x] Patient assessment and monitoring of vital signs [x] Documentation [x] Medication orders and management History Interval history: 65 y/o male with out of hospital cardiac arrest, acute hypoxic respiratory failure and COVID-19 infection. Hospitalist Physical - Constitutional Vitals: Temp Pulse Resp BP Pulse Ox 97.5 F L 62 13 142/66 100 09/28/20 07:00 09/28/20 10:01 09/28/20 10:01 09/28/20 10:01 09/28/20 10:01 General appearance: Present: other (On mechanical ventilation) - EENT Eyes: Present: PERRL, EOM intact ENT: hearing intact, clear oral mucosa, dentition normal - Neck Neck: Present: supple, normal ROM - Respiratory Respiratory effort: normal Respiratory: bilateral: CTA - Cardiovascular Rhythm: regular Heart Sounds: Present: S1 & S2. Absent: gallop, rub - Extremities Extremities: no ischemia, No edema, Full ROM - Abdominal General gastrointestinal: soft, non-tender, non-distended, normal bowel sounds - Integumentary Integumentary: Present: clear, warm, dry - Neurologic Neurologic: CNII-XII intact, moves all extremities HEART Score - HEART Score Troponin: Troponin T 0.076 ng/mL (0.00-0.029) H 09/07/20 14:00 Results - Labs CBC & Chem 7: 09/28/20 07:02 09/28/20 07:02 Labs: Laboratory Last Values WBC 8.7 K/mm3 (4.5-11.0) 09/28/20 07:02 RBC 3.26 M/mm3 (3.65-5.03) L 09/28/20 07:02 Hgb 9.3 gm/dl (11.8-15.2) L 09/28/20 07:02 Hct 28.7 % (35.5-45.6) L 09/28/20 07:02 MCV 88 fl (84-94) 09/28/20 07:02 MCH 29 pg (28-32) 09/28/20 07:02 MCHC 33 % (32-34) 09/28/20 07:02 RDW 18.5 % (13.2-15.2) H 09/28/20 07:02 Plt Count 164 K/mm3 (140-440) 09/28/20 07:02 Lymph % (Auto) 18.3 % (13.4-35.0) 09/28/20 07:02 Carroll % (Auto) 12.7 % (0.0-7.3) H 09/28/20 07:02 Eos % (Auto) 1.7 % (0.0-4.3) 09/28/20 07:02 Baso % (Auto) 0.2 % (0.0-1.8) 09/28/20 07:02 Lymph # (Auto) 1.6 K/mm3 (1.2-5.4) 09/28/20 07:02 Carroll # (Auto) 1.1 K/mm3 (0.0-0.8) H 09/28/20 07:02 Eos # (Auto) 0.1 K/mm3 (0.0-0.4) 09/28/20 07:02 Baso # (Auto) 0.0 K/mm3 (0.0-0.1) 09/28/20 07:02 Add Manual Diff Complete 09/19/20 05:13 Total Counted 100 09/19/20 05:13 Seg Neutrophils % 67.1 % (40.0-70.0) 09/28/20 07:02 Seg Neuts % (Manual) 87.0 % (40.0-70.0) H 09/19/20 05:13 Band Neutrophils % 1.0 % 09/19/20 05:13 Lymphocytes % (Manual) 5.0 % (13.4-35.0) L 09/19/20 05:13 Monocytes % (Manual) 7.0 % (0.0-7.3) 09/19/20 05:13 Eosinophils % (Manual) 2.0 % (0.0-4.3) 09/07/20 14:00 Metamyelocytes % 2.0 % 09/08/20 Unknown Nucleated RBC % Not Reportable 09/19/20 05:13 Seg Neutrophils # 5.9 K/mm3 (1.8-7.7) 09/28/20 07:02 Seg Neutrophils # Man 19.8 K/mm3 (1.8-7.7) H 09/19/20 05:13 Band Neutrophils # 0.2 K/mm3 09/19/20 05:13 Lymphocytes # (Manual) 1.1 K/mm3 (1.2-5.4) L 09/19/20 05:13 Abs React Lymphs (Man) 0.0 K/mm3 09/19/20 05:13 Monocytes # (Manual) 1.6 K/mm3 (0.0-0.8) H 09/19/20 05:13 Eosinophils # (Manual) 0.0 K/mm3 (0.0-0.4) 09/19/20 05:13 Basophils # (Manual) 0.0 K/mm3 (0.0-0.1) 09/19/20 05:13 Metamyelocytes # 0.0 K/mm3 09/19/20 05:13 Myelocytes # 0.0 K/mm3 09/19/20 05:13 Promyelocytes # 0.0 K/mm3 09/19/20 05:13 Blast Cells # 0.0 K/mm3 09/19/20 05:13 WBC Morphology Not Reportable 09/19/20 05:13 Hypersegmented Neuts Not Reportable 09/19/20 05:13 Hyposegmented Neuts Not Reportable 09/19/20 05:13 Hypogranular Neuts Not Reportable 09/19/20 05:13 Smudge Cells Not Reportable 09/19/20 05:13 Toxic Granulation Not Reportable 09/19/20 05:13 Toxic Vacuolation Not Reportable 09/19/20 05:13 Dohle Bodies Not Reportable 09/19/20 05:13 Pelger-Huet Anomaly Not Reportable 09/19/20 05:13 Justus Rods Not Reportable 09/19/20 05:13 Platelet Estimate Consistent w auto 09/19/20 05:13 Clumped Platelets Not Reportable 09/19/20 05:13 Plt Clumps, EDTA Not Reportable 09/19/20 05:13 Large Platelets Not Reportable 09/19/20 05:13 Giant Platelets Not Reportable 09/19/20 05:13 Platelet Satelliting Not Reportable 09/19/20 05:13 Plt Morphology Comment Not Reportable 09/19/20 05:13 RBC Morphology Not Reportable 09/19/20 05:13 Dimorphic RBCs Not Reportable 09/19/20 05:13 Polychromasia Not Reportable 09/19/20 05:13 Hypochromasia Not Reportable 09/19/20 05:13 Poikilocytosis Not Reportable 09/19/20 05:13 Anisocytosis 1+ 09/19/20 05:13 Microcytosis Not Reportable 09/19/20 05:13 Macrocytosis Not Reportable 09/19/20 05:13 Spherocytes Not Reportable 09/19/20 05:13 Pappenheimer Bodies Not Reportable 09/19/20 05:13 Sickle Cells Not Reportable 09/19/20 05:13 Target Cells Not Reportable 09/19/20 05:13 Tear Drop Cells Not Reportable 09/19/20 05:13 Ovalocytes Not Reportable 09/19/20 05:13 Helmet Cells Not Reportable 09/19/20 05:13 Batres-Milo Bodies Not Reportable 09/19/20 05:13 [place] Rings Not Reportable 09/19/20 05:13 Manjit Cells Not Reportable 09/19/20 05:13 Bite Cells Not Reportable 09/19/20 05:13 Crenated Cell Not Reportable 09/19/20 05:13 Elliptocytes Not Reportable 09/19/20 05:13 Acanthocytes (Spur) Not Reportable 09/19/20 05:13 Rouleaux Not Reportable 09/19/20 05:13 Hemoglobin C Crystals Not Reportable 09/19/20 05:13 Schistocytes Not Reportable 09/19/20 05:13 Malaria parasites Not Reportable 09/19/20 05:13 Tommie Bodies Not Reportable 09/19/20 05:13 Hem Pathologist Commnt No 09/19/20 05:13 PT 16.1 Sec. (12.2-14.9) H 09/12/20 04:00 INR 1.31 (0.87-1.13) H 09/12/20 04:00 APTT 32.4 Sec. (24.2-36.6) 09/09/20 10:00 D-Dimer 8315.85 ng/mlDDU (0-234) H 09/07/20 14:00 ABG pH 7.442 (7.320-7.450) 09/14/20 03:54 POC ABG pCO2 42.3 mmHg (32.0-48.0) 09/14/20 03:54 ABG pCO2 33.4 mm Hg 09/11/20 05:40 POC ABG pO2 71.1 mmHg (83-108) L 09/14/20 03:54 ABG pO2 112.1 mm Hg (80.0-90.0) H 09/11/20 05:40 POC ABG HCO3 28.2 09/14/20 03:54 ABG HCO3 28.1 mmol/L (20.0-26.0) H 09/11/20 05:40 ABG O2 Saturation 98.4 % (95.0-99.0) 09/11/20 05:40 ABG O2 Content 11.6 (0.0-44) 09/11/20 05:40 POC ABG Base Excess 3.7 09/14/20 03:54 ABG Base Excess 5.4 mmol/L (-2.0-3.0) H 09/11/20 05:40 ABG Hemoglobin 10.3 (12.0-17.5) L 09/14/20 03:54 ABG Oxyhemoglobin 93.2 (94-98) L 09/13/20 04:47 ABG Carboxyhemoglobin 1.2 % (0.0-5.0) 09/11/20 05:40 ABG Methemoglobin 0.3 (0.0-1.5) 09/13/20 04:47 ABG Sodium 135.2 mmol/L (136.0-145.0) L 09/14/20 03:54 ABG Potassium 3.8 mmol/L (3.40-4.50) 09/14/20 03:54 ABG Chloride 98.0 mmol/L (98-107) 09/14/20 03:54 ABG Glucose 281 mg/dL (65-95) H 09/14/20 03:54 Oxyhemoglobin 96.8 % (95.0-99.0) 09/11/20 05:40 Carboxyhemoglobin 0.4 (0.5-1.5) L 09/13/20 04:47 FiO2 30 09/14/20 03:54 Sodium 140 mmol/L (137-145) 09/28/20 07:02 Potassium 3.8 mmol/L (3.6-5.0) 09/28/20 07:02 Chloride 101.7 mmol/L (98-107) 09/28/20 07:02 Carbon Dioxide 29 mmol/L (22-30) 09/28/20 07:02 Anion Gap 13 mmol/L 09/28/20 07:02 BUN 37 mg/dL (9-20) H 09/28/20 07:02 Creatinine 3.8 mg/dL (0.8-1.3) H 09/28/20 07:02 Estimated GFR 20 ml/min 09/28/20 07:02 BUN/Creatinine Ratio 10 % 09/28/20 07:02 Glucose 270 mg/dL (75-100) H 09/28/20 07:02 POC Glucose 227 mg/dL (70-105) H 09/28/20 05:28 Lactic Acid 2.90 mmol/L (0.7-2.0) H* 09/17/20 13:52 Calcium 9.1 mg/dL (8.4-10.2) 09/28/20 07:02 Phosphorus 8.00 mg/dL (2.5-4.5) H 09/08/20 12:02 Magnesium 1.80 mg/dL (1.7-2.3) 09/08/20 12:02 Ferritin > 2000.0 ng/mL (30.0-300.0) H 09/07/20 14:00 Total Bilirubin 0.50 mg/dL (0.1-1.2) 09/25/20 05:18 Direct Bilirubin 0.5 mg/dL (0-0.2) H 09/08/20 05:00 Indirect Bilirubin 0.5 mg/dL 09/08/20 05:00 AST 55 units/L (5-40) H 09/25/20 05:18 ALT 74 units/L (7-56) H 09/25/20 05:18 Alkaline Phosphatase 81 units/L (35-129) 09/25/20 05:18 Ammonia 50.0 umol/L (25-60) 09/07/20 14:00 Lactate Dehydrogenase 882 units/L (91-180) H 09/07/20 14:00 Total Creatine Kinase 477 units/L (55-170) H 09/07/20 14:00 Troponin T 0.076 ng/mL (0.00-0.029) H 09/07/20 14:00 C-Reactive Protein 1.10 mg/dL (0.00-1.30) 09/07/20 14:00 Total Protein 7.0 g/dL (6.3-8.2) 09/25/20 05:18 Albumin 2.6 g/dL (3.9-5) L 09/25/20 05:18 Albumin/Globulin Ratio 0.6 % 09/25/20 05:18 Triglycerides 220 mg/dL (2-149) H 09/12/20 Unknown Procalcitonin 1.52 ng/mL (<0.15) 09/17/20 13:02 TSH 2.290 mlU/mL (0.270-4.200) 09/07/20 14:00 Arterial Blood Glucose 281 mg/dL (65-95) H 09/14/20 03:54 Arterial Blood Ionized Calcium 4.6 mg/dL (4.6-5.3) 09/14/20 03:54 Urine Color Straw (Yellow) 09/07/20 13:08 Urine Turbidity Slightly-cloudy (Clear) 09/07/20 13:08 Urine pH 8.0 (5.0-7.0) H 09/07/20 13:08 Ur Specific [place] 1.006 (1.003-1.030) 09/07/20 13:08 Urine Protein 100 mg/dl mg/dL (Negative) 09/07/20 13:08 Urine Glucose (UA) Neg mg/dL (Negative) 09/07/20 13:08 Urine Ketones Neg mg/dL (Negative) 09/07/20 13:08 Urine Blood Neg (Negative) 09/07/20 13:08 Urine Nitrite Neg (Negative) 09/07/20 13:08 Urine Bilirubin Neg (Negative) 09/07/20 13:08 Urine Urobilinogen < 2.0 mg/dL (<2.0) 09/07/20 13:08 Ur Leukocyte Esterase Neg (Negative) 09/07/20 13:08 Urine WBC (Auto) 4.0 /HPF (0.0-6.0) 09/07/20 13:08 Urine RBC (Auto) 18.0 /HPF (0.0-6.0) 09/07/20 13:08 U Epithel Cells (Auto) 1.0 /HPF (0-13.0) 09/07/20 13:08 Urine Mucus Few /HPF 09/07/20 13:08 Urine Sperm 3+ /HPF ([employer]IST) 09/07/20 13:08 Urine Creatinine 182.4 mg/dL (0.1-20.0) H 09/08/20 Unknown Urine Sodium 40 mmol/L 09/08/20 Unknown Salicylates < 0.3 mg/dL (2.8-20.0) L 09/07/20 14:00 Acetaminophen 5.0 ug/mL (10.0-30.0) L 09/07/20 14:00 Plasma/Serum Alcohol < 0.01 % (0-0.07) 09/07/20 14:00 Coronavirus (PCR) Negative (Negative) 09/19/20 Unknown Hepatitis A IgM Ab Non-reactive (NonReactive) 09/07/20 14:00 Hep Bs Antigen Non-reactive (Negative) 09/07/20 14:00 Hep B Core IgM Ab Non-reactive (NonReactive) 09/07/20 14:00 Hepatitis C Antibody Non-reactive (NonReactive) 09/07/20 14:00 HIV 1&2 Antibody Rapid Non react (Non React) 09/07/20 14:34 HIV P24 Antigen Non react (Non React) 09/07/20 14:34 Blood Type O POSITIVE 09/09/20 10:00 Antibody Screen Negative 09/07/20 14:00 Mae/IV: Voiding Method Condom Catheter IV Catheter Type [Right Triple Lumen Cath Femoral] IV Catheter Type [Left Peripheral IV Antecubital] IV Catheter Type [Left Hand] Peripheral IV IV Catheter Type [Right Peripheral IV Antecubital] Active Medications - Current Medications Current Medications: Generic Name Dose Route Start Last Admin Trade Name Freq PRN Reason Stop Dose Admin Acetaminophen 400 mg 09/10/20 20:50 09/14/20 23:38 Acetaminophen 325 Mg/10.15 Ml Oral Liqd Unit Dose PO 400 mg Q4HR PRN Administration Non Cardiac Pain or Temp>100.5 Lipase/Protease/Amylase 1 each 09/09/20 09:40 Lipase 10,500/Protease 25,000/Amylase 43,750 (Units) Dr Armenta FEEDTUBE PRN PRN For Clogged Feeding Tube Hydralazine HCl 50 mg 09/23/20 14:00 09/28/20 06:27 Hydralazine 25 Mg Tab PO 50 mg Q8HR TAYLOR Administration Hydrophilic Ointment 1 applic 09/07/20 13:08 Lip Therapy Vaseline TP Q2HR PRN Dry Lips Sodium Chloride 100 mls @ 999 mls/hr 09/09/20 13:36 Nacl 0.9% IV JAYJAY PRN Hypotension Insulin Human Lispro 0 unit 09/12/20 12:00 09/28/20 06:27 Insulin Lispro 100 Unit/Ml SUB-Q 4 unit Q6HR TAYLOR Administration Protocol Lansoprazole 30 mg 09/11/20 11:00 09/28/20 09:49 Lansoprazole 30 Mg Solutab FEEDTUBE 30 mg BID TAYLOR Administration Levetiracetam 1,500 mg 09/28/20 10:00 09/28/20 09:49 Levetiracetam 500 Mg/5 Ml Oral Liqd PO 1,500 mg BID TAYLOR Administration Lorazepam 2 mg 09/08/20 00:14 09/14/20 13:36 Lorazepam 2 Mg/Ml Vial IV 2 mg Q4H PRN Administration Seizures Multi-Ingred Cream/Lotion/Oil/Oint 1 applic 09/07/20 13:08 09/20/20 10:50 Mineral Oil/Petrolatum, White Ophth Oint 3.5 Gm OU 1 applic Q4HR PRN Administration Dry Eye(s) Multivitamins 5 ml 09/09/20 12:00 09/28/20 09:48 Multivitamins 5 Ml Oral Liquid PO 5 ml QDAY TAYLOR Administration Ondansetron HCl 4 mg 09/07/20 17:55 09/19/20 04:00 Ondansetron 4 Mg/2 Ml Inj IV 4 mg Q8H PRN Administration Nausea And Vomiting Senna/Docusate Sodium 2 tab 09/20/20 11:00 Sennosides/Docusate Sodium 8.6/50 Mg Tab PO BID PRN Laxative Effect Simple Syrup 15 ml 09/09/20 09:40 09/17/20 17:43 Simple Syrup 15 Ml FEEDTUBE 15 ml PRN PRN Administration Hypoglycemia Simple Syrup 30 ml 09/09/20 09:40 Simple Syrup 15 Ml FEEDTUBE PRN PRN Hypoglycemia Sodium Bicarbonate 325 mg 09/09/20 09:40 Sodium Bicarbonate 325 Mg Tab FEEDTUBE PRN PRN For Clogged Feeding Tube Sodium Chloride 10 ml 09/07/20 22:00 09/28/20 09:26 Sodium Chloride 0.9% 10 Ml Flush Syringe IV 10 ml BID TAYLOR Administration Sodium Chloride 10 ml 09/07/20 17:55 Sodium Chloride 0.9% 10 Ml Flush Syringe IV PRN PRN LINE FLUSH Valproic Acid 1,000 mg 09/28/20 10:00 09/28/20 09:49 Valproic Acid 250 Mg/5 Ml Oral Liqd FEEDTUBE 1,000 mg BID TAYLOR Administration Nutrition/Malnutrition Assess - Dietary Evaluation Nutrition/Malnutrition Findings: Nutrition Notes Start: 09/08/20 12:01 Freq: Status: Active Protocol: Document 09/27/20 12:14 LP (Rec: 09/27/20 12:36 LP [email or web address]) Nutrition Notes Initial or Follow up Reassessment Current Diagnosis Acute Kidney Injury, Respiratory Failure Other Pertinent Diagnosis on HD, cardiac arrest, COVID ( +), metabolic encephalopathy, pneu Current Diet Nepro 1.8 at 45 mL/hr (goal rate) Labs/Tests BUN 54 Cr 4.7 BG 218 Pertinent Medications Reviewed Height 6 ft Weight 150.6 kg [place] Body Weight (kg) 80.90 BMI 45.0 Weight Status Morbidly Obese Subjective/Other Information Pt now tolerating TF at goal rate. Percent of energy/protein needs met: 99%/43% Burn Absent Trauma Absent Current % PO Negligible Minimum of two criteria No physical signs of malnutrition #2 Nutrition Diagnosis Increased nutrient needs ( specify in comment below) Comments: Protein Etiology ESRD As Evidenced by Signs and Symptoms Pt on HD and not meeting protein needs #1 Nutrition Diagnosis Inadequate oral intake Diagnosis Progress(for reassessment Continues documentation) Is patient on ventilator? Yes Is Patient Ambulatory and/or Out of Bed No REE-(Posey-St. Jeor-confined to bed) 2805.132 Kcal/Kg value to use for calculation 13 Approximate Energy Requirements Using 1958 kcal/Kg Calculation Used for Recommendations Kcal/kg Additional Notes PRO needs: >202g (> 2.5g/kg IBW 80.9kg) Fluid needs are 1000-1500ml Nutrition Intervention Change Diet Order: TF Nutrition Support: Nepro at 45ml/hr Flush 200ml q4h for hypernatremia. 120ml q4h once resolved Kcal 1,944 Protein (gm) 87 Fluid (mL) 785 Goal #1 Meet kcal and protein needs as best as possible via TF Anticipated Discharge Needs: TF Follow-Up By: 09/29/20 Additional Comments Follow for stable TF
--- NOTE | 2020-09-28 10:55 | Progress Note ---
Assessment and Plan 65 y/o male with out of hospital cardiac arrest now sedated on ativan for possible seizures. 09/28/20: T-piece again today. Will place official order to let patient stay on T-piece and to call if changes occur. HD MWF per renal. Poor prognosis for cognitive recovery. 09/27/20: T-piece trial again today. Will attempt to go 24 hours. Still needs HD per renal. This will be a barrier to discharge. CM knows and will discuss with administration. 09/26/20: Will do T-piece today. If tolerates the next 24 hours will move out of ICU. : PSV for the next 24 hours if tolerates. Restart feeds today at 10. Continue reglan. If tomorrow, same issues. Will change feeds, obtain GI consult. Continue antiepileptic therapy. 09/24/20: Continue Daily PSV, maybe ready for 24 hour trial. Antiepleptic therapy. Hold feeds today, suggest GI consult. Will discuss with Dietary on round tomorrow. 09/23/20: Daily PSV trials multiple times a day if needed. Antiepileptic therapy. Resume tube feeds today. 09/22/20: PSV trial today as tolerated and every day from this day forward. NO sedation. Continue antiepileptic therapy. HD per renal. Still having issues with feeds. Will contact to see if he has any food allergies. Prognosis still remains very poor. WIll start some promotility agents as well. 09/21/20: Trach and peg today. Continue with vent weaning. Hopeful we can wean him off the vent once trached. Only place [facility] will cover is SNF. Prognosis remains very poor for recovery of functional state. 09/20/20: Placed consult to surgery now that COVID is negative. However, patient is morbidly obese and his surgery will likely be a complicated one especially with peg placement. Await surgery eval and recs. HD per renal. Continue daily PSV trials, mental status precludes extubation traditionally but maybe able to wean off vent with stable airway such as trach. [facility] at this time based on CM notes. Prognosis is very poor, but after speaking with neurology and neurosurgery, patient wishes to continue aggressive measures. 09/19/20: Ordered repeat COVID as surgery will not do trach and peg until negative status. Continue supportive measures. 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 09/18/20: Unable to fit in MRI. Repeat CT showed improvement in edema but no clinical response is seen with this. Will continue Antiepileptic therapy. If wishes to proceed, will need trach and peg. Not sure if he would be candidate for PEG given his size but will ask surgery. Will need repeat COVID test prior to surgery. 09/15/20: Order MRI brain without contrast. Per surgery this will help to add more in regards to prognosis. Continue Valproic Acid and Keppra for seizure therapy. HD going now per renal. Overall prognosis remains guarded to poor. Please reach out to over the weekend to update her as I am not rounding this weekend, ,my partner will be covering. 09/14/20: Will load with valproic acid and then start to wean Diprovan. Spoke with today, very tearful on the phone. Explained to that Neurosurgery would come and eval tonight but not a candidate for the other therapies she a sked about since his edema is related to anoxic injury. Very very poor prognosis. 09/13/20: Per current neuro available, the neurologist from yesterday will call today. EEG is nonspecific but given CT of head findings consistent with anoxic encephalopathy, brain injury. As stated in neuro note, overall prognosis is very poor. Will continue to wean down diprovan to see if patient's seizures have been controlled with current Keppra dosing. Will call once she has spoken to neuro to get her thoughts on the next steps. (trach and peg, vs hospice as well as code status). Very very poor prognosis. 09/12/20: Long discussion with this am. Given recent head CT results, prognosis for full functional recovery is very POOR and neurology agrees. They will see in consult today. I have spoken to about AND and she is going to discuss with the family. The neurologist has stated they will reach out to the today. I am going to attempt to wean the ativan off and then start to wean the diprovan as long as no seizure activity is seen. Patient is now bradycardic, likely secondary to neuro state. I hope that he is not about to herniate. Patient is also like in Neurogenic DI given large urine out put volume. Very very poor prognosis. Continue supportive measures. 09/11/20: Will increase Keppra to 1500 BID given patient size. Continue Diprovan drip. Getting EEG today. HD per renal. Needs neurology consult however if patient is in status, needs to be transferred to an institution that can provide continuous EEG monitoring. Overll prognosis is very guarded to poor. Have not spoken to yet today. 09/10/20: Loaded with keppra and will start on Keppra BID. Needs EEG on therapy as well as OFF. If patient is in status, needs transfer to a location with continuous EEG capabilities. FiO2 has been weaned back down and is now at 60%, sats in the high 90's. HD per renal. Coags improving. Overall prognosis is guarded to poor. Spoke with on phone yesterday. Consult neurology tomorrow as not available on the weekend. Suggest checking for antibodies as he may be a candidate for convalsescent plasma. Per the , he was diagnosed with COVID on and spent 6 days inpatient at the [facility]. Remains positive now with multisystem organ failure. Explained to that outcome may not be good but need more time to assess. 09/09/20: EEG ordered on yesterday but not done. If done not read. Continue diprovan for now until EEG can be done or interpreted. State Coags but given his oozing from his vascath, will give Vitamin K and FFP. Patient is covid positive so agree with steroids. Not a candidate for remdesivir. Need to check for antibodies, may be a candidate for convalescent plasma. HD per renal. Given improvement in pH will stop bicarb drip. Feed patient. 1. Stop sedation 2. EEG 3. Needs neuro consult. 4. Art line placement 5. Stat repeat of labs, if renal function is truly that bad, will need renal consult. 6. Follow up COVID testing 7. Likely needs echo 8. Will place on bicarb drip. CCT 31 minutes. Subjective Date of service: 09/28/20 Principal diagnosis: Abnormal LFTs, s/p cardiac arrest, acute kidney injury with ATN Interval history: Remains unresponsive. Placed back on PSV last night. Now back on T-piece this am. Did T-piece for the entire day shift. Objective Vital Signs - 12hr 09/27/20 09/27/20 09/27/20 23:00 23:07 23:15 Temperature Pulse Rate 61 61 61 Pulse Rate [ From Monitor] Respiratory 31 H 29 H 29 H Rate Blood Pressure 121/64 121/64 125/60 O2 Sat by Pulse 100 100 100 Oximetry O2 Sat by Pulse Oximetry [ Assessment] 09/27/20 09/27/20 09/27/20 23:23 23:30 23:45 Temperature Pulse Rate 61 60 61 Pulse Rate [ From Monitor] Respiratory 28 H 31 H Rate Blood Pressure 125/60 124/67 123/61 O2 Sat by Pulse 100 100 100 Oximetry O2 Sat by Pulse Oximetry [ Assessment] 09/27/20 09/27/20 09/28/20 23:49 23:54 00:00 Temperature 98.0 F 243 F H Pulse Rate 59 L Pulse Rate [ From Monitor] Respiratory Rate Blood Pressure O2 Sat by Pulse Oximetry O2 Sat by Pulse Oximetry [ Assessment] 09/28/20 09/28/20 09/28/20 00:01 00:15 00:30 Temperature Pulse Rate 61 61 61 Pulse Rate [ From Monitor] Respiratory 29 H 28 H 29 H Rate Blood Pressure 120/60 123/65 121/61 O2 Sat by Pulse 100 100 100 Oximetry O2 Sat by Pulse Oximetry [ Assessment] 09/28/20 09/28/20 09/28/20 00:45 01:00 01:15 Temperature Pulse Rate 61 61 61 Pulse Rate [ From Monitor] Respiratory 30 H 30 H 29 H Rate Blood Pressure 119/66 113/65 118/59 O2 Sat by Pulse 100 100 100 Oximetry O2 Sat by Pulse Oximetry [ Assessment] 09/28/20 09/28/20 09/28/20 01:30 01:45 02:00 Temperature Pulse Rate 62 63 61 Pulse Rate [ From Monitor] Respiratory 28 H 29 H 28 H Rate Blood Pressure 116/59 112/60 123/61 O2 Sat by Pulse 100 100 100 Oximetry O2 Sat by Pulse Oximetry [ Assessment] 09/28/20 09/28/20 09/28/20 02:15 02:31 02:45 Temperature Pulse Rate 62 62 63 Pulse Rate [ From Monitor] Respiratory 29 H 28 H 28 H Rate Blood Pressure 115/58 122/60 120/62 O2 Sat by Pulse 100 100 100 Oximetry O2 Sat by Pulse Oximetry [ Assessment] 09/28/20 09/28/20 09/28/20 03:00 03:15 03:30 Temperature Pulse Rate 63 62 63 Pulse Rate [ From Monitor] Respiratory 28 H 30 H 28 H Rate Blood Pressure 117/61 120/68 125/60 O2 Sat by Pulse 100 100 100 Oximetry O2 Sat by Pulse Oximetry [ Assessment] 09/28/20 09/28/20 09/28/20 03:43 03:45 04:00 Temperature 97.8 F Pulse Rate 63 64 Pulse Rate [ 63 From Monitor] Respiratory 28 H 28 H Rate Blood Pressure 115/62 122/65 O2 Sat by Pulse 100 100 Oximetry O2 Sat by Pulse Oximetry [ Assessment] 09/28/20 09/28/20 09/28/20 04:15 04:31 04:36 Temperature Pulse Rate 62 66 65 Pulse Rate [ From Monitor] Respiratory 29 H 28 H Rate Blood Pressure 120/65 125/60 125/60 O2 Sat by Pulse 100 100 100 Oximetry O2 Sat by Pulse 100 Oximetry [ Assessment] 09/28/20 09/28/20 09/28/20 04:45 05:00 05:15 Temperature Pulse Rate 66 63 63 Pulse Rate [ From Monitor] Respiratory 23 29 H 28 H Rate Blood Pressure 125/63 125/63 123/67 O2 Sat by Pulse 100 100 100 Oximetry O2 Sat by Pulse Oximetry [ Assessment] 09/28/20 09/28/20 09/28/20 05:31 05:45 06:00 Temperature Pulse Rate 62 62 63 Pulse Rate [ From Monitor] Respiratory 31 H 28 H 29 H Rate Blood Pressure 125/61 123/60 122/61 O2 Sat by Pulse 100 100 100 Oximetry O2 Sat by Pulse Oximetry [ Assessment] 09/28/20 09/28/20 09/28/20 06:15 06:27 06:31 Temperature Pulse Rate 64 63 63 Pulse Rate [ From Monitor] Respiratory 27 H 27 H Rate Blood Pressure 127/61 127/61 119/59 O2 Sat by Pulse 100 100 Oximetry O2 Sat by Pulse Oximetry [ Assessment] 09/28/20 09/28/20 09/28/20 06:45 07:00 07:15 Temperature 97.5 F L Pulse Rate 62 64 63 Pulse Rate [ From Monitor] Respiratory 20 20 28 H Rate Blood Pressure 118/62 119/61 128/69 O2 Sat by Pulse 100 100 100 Oximetry O2 Sat by Pulse Oximetry [ Assessment] 09/28/20 09/28/20 09/28/20 07:30 07:45 07:47 Temperature Pulse Rate 64 62 Pulse Rate [ From Monitor] Respiratory 21 38 H Rate Blood Pressure 136/70 126/65 O2 Sat by Pulse 100 100 Oximetry O2 Sat by Pulse 98 Oximetry [ Assessment] 09/28/20 09/28/20 09/28/20 07:57 07:58 08:00 Temperature Pulse Rate 62 62 Pulse Rate [ 63 From Monitor] Respiratory 27 H 36 H Rate Blood Pressure 137/65 O2 Sat by Pulse 100 100 Oximetry O2 Sat by Pulse Oximetry [ Assessment] 09/28/20 09/28/20 09/28/20 08:15 08:31 08:45 Temperature Pulse Rate 64 61 61 Pulse Rate [ From Monitor] Respiratory 34 H 37 H 38 H Rate Blood Pressure 134/65 136/65 129/64 O2 Sat by Pulse 100 100 100 Oximetry O2 Sat by Pulse Oximetry [ Assessment] 09/28/20 09/28/20 09/28/20 09:00 09:15 09:30 Temperature Pulse Rate 61 62 61 Pulse Rate [ From Monitor] Respiratory 36 H 36 H 35 H Rate Blood Pressure 134/69 136/71 136/66 O2 Sat by Pulse 100 100 100 Oximetry O2 Sat by Pulse Oximetry [ Assessment] 09/28/20 09/28/20 09:45 10:01 Temperature Pulse Rate 61 62 Pulse Rate [ From Monitor] Respiratory 36 H 13 Rate Blood Pressure 132/67 142/66 O2 Sat by Pulse 100 100 Oximetry O2 Sat by Pulse Oximetry [ Assessment] Constitutional: comatose, other (morbidly obese) Eyes: non-icteric ENT: other (orally intubated and sedated) Neck: supple Effort: normal Ascultation: Bilateral: diminished breath sounds Percussion: Bilateral: not dull Cardiovascular: other (bradycardic) Gastrointestinal: soft CBC and BMP: 09/28/20 07:02 09/28/20 07:02 ABG, PT/INR, D-dimer: ABG ABG pH 7.442 (7.320-7.450) 09/14/20 03:54 POC ABG pCO2 42.3 mmHg (32.0-48.0) 09/14/20 03:54 ABG pCO2 33.4 mm Hg 09/11/20 05:40 POC ABG pO2 71.1 mmHg (83-108) L 09/14/20 03:54 ABG pO2 112.1 mm Hg (80.0-90.0) H 09/11/20 05:40 POC ABG HCO3 28.2 09/14/20 03:54 ABG O2 Saturation 98.4 % (95.0-99.0) 09/11/20 05:40 PT/INR, D-dimer PT 16.1 Sec. (12.2-14.9) H 09/12/20 04:00 INR 1.31 (0.87-1.13) H 09/12/20 04:00 D-Dimer 8315.85 ng/mlDDU (0-234) H 09/07/20 14:00 Abnormal lab findings: Abnormal Labs 09/07/20 09/07/20 09/07/20 13:08 14:00 14:00 WBC 15.7 H RBC Hgb 10.2 L Hct 32.5 L MCHC 31 L RDW 17.5 H Lymph % (Auto) [place] % (Auto) Lymph # (Auto) [place] # (Auto) Seg Neutrophils % Seg Neuts % (Manual) 72.0 H Lymphocytes % (Manual) Monocytes % (Manual) 8.0 H Nucleated RBC % Seg Neutrophils # Seg Neutrophils # Man 11.3 H Lymphocytes # (Manual) Monocytes # (Manual) 1.3 H PT INR D-Dimer 8315.85 H ABG pH POC ABG pCO2 POC ABG pO2 ABG pO2 ABG HCO3 ABG Base Excess ABG Hemoglobin ABG Oxyhemoglobin ABG Sodium ABG Potassium ABG Chloride ABG Glucose Carboxyhemoglobin Sodium Potassium Chloride Carbon Dioxide BUN Creatinine Glucose POC Glucose Lactic Acid Calcium Phosphorus Ferritin Total Bilirubin Direct Bilirubin AST ALT Lactate Dehydrogenase Total Creatine Kinase Troponin T Total Protein Albumin Triglycerides Arterial Blood Glucose Arterial Blood Ionized Calcium Urine pH 8.0 H Urine Creatinine Salicylates Acetaminophen Coronavirus (PCR) 09/07/20 09/07/20 09/07/20 14:00 14:00 14:00 WBC RBC Hgb Hct MCHC RDW Lymph % (Auto) [place] % (Auto) Lymph # (Auto) [place] # (Auto) Seg Neutrophils % Seg Neuts % (Manual) Lymphocytes % (Manual) Monocytes % (Manual) Nucleated RBC % Seg Neutrophils # Seg Neutrophils # Man Lymphocytes # (Manual) Monocytes # (Manual) PT INR D-Dimer ABG pH POC ABG pCO2 POC ABG pO2 ABG pO2 ABG HCO3 ABG Base Excess ABG Hemoglobin ABG Oxyhemoglobin ABG Sodium ABG Potassium ABG Chloride ABG Glucose Carboxyhemoglobin Sodium Potassium Chloride Carbon Dioxide BUN Creatinine Glucose POC Glucose Lactic Acid 4.30 H* Calcium Phosphorus Ferritin > 2000.0 H Total Bilirubin Direct Bilirubin AST ALT Lactate Dehydrogenase 882 H Total Creatine Kinase 477 H Troponin T 0.076 H Total Protein Albumin Triglycerides Arterial Blood Glucose Arterial Blood Ionized Calcium Urine pH Urine Creatinine Salicylates Acetaminophen Coronavirus (PCR) 09/07/20 09/07/20 09/07/20 14:00 14:00 14:00 WBC RBC Hgb Hct MCHC RDW Lymph % (Auto) [place] % (Auto) Lymph # (Auto) [place] # (Auto) Seg Neutrophils % Seg Neuts % (Manual) Lymphocytes % (Manual) Monocytes % (Manual) Nucleated RBC % Seg Neutrophils # Seg Neutrophils # Man Lymphocytes # (Manual) Monocytes # (Manual) PT INR D-Dimer ABG pH POC ABG pCO2 POC ABG pO2 ABG pO2 ABG HCO3 ABG Base Excess ABG Hemoglobin ABG Oxyhemoglobin ABG Sodium ABG Potassium ABG Chloride ABG Glucose Carboxyhemoglobin Sodium Potassium Chloride Carbon Dioxide BUN Creatinine 1.8 H Glucose POC Glucose Lactic Acid Calcium Phosphorus Ferritin Total Bilirubin Direct Bilirubin AST 310 H ALT 339 H Lactate Dehydrogenase Total Creatine Kinase Troponin T Total Protein Albumin 3.6 L Triglycerides Arterial Blood Glucose Arterial Blood Ionized Calcium Urine pH Urine Creatinine Salicylates < 0.3 L Acetaminophen 5.0 L Coronavirus (PCR) 09/07/20 09/08/20 09/08/20 14:26 04:00 04:17 WBC RBC Hgb Hct MCHC RDW Lymph % (Auto) [place] % (Auto) Lymph # (Auto) [place] # (Auto) Seg Neutrophils % Seg Neuts % (Manual) Lymphocytes % (Manual) Monocytes % (Manual) Nucleated RBC % Seg Neutrophils # Seg Neutrophils # Man Lymphocytes # (Manual) Monocytes # (Manual) PT INR D-Dimer ABG pH 7.037 L 7.095 L POC ABG pCO2 92.4 H 68.0 H POC ABG pO2 130.8 H 43.5 L ABG pO2 ABG HCO3 ABG Base Excess ABG Hemoglobin 11.3 L 10.6 L ABG Oxyhemoglobin 70.8 L ABG Sodium ABG Potassium 7.0 H ABG Chloride 108.0 H ABG Glucose Carboxyhemoglobin 0.3 L Sodium Potassium 8.4 H* D Chloride Carbon Dioxide 17 L D BUN 38 H Creatinine 3.9 H D Glucose POC Glucose Lactic Acid Calcium 7.7 L D Phosphorus Ferritin Total Bilirubin Direct Bilirubin AST ALT Lactate Dehydrogenase Total Creatine Kinase Troponin T Total Protein Albumin Triglycerides Arterial Blood Glucose Arterial Blood Ionized Calcium 4.5 L Urine pH Urine Creatinine Salicylates Acetaminophen Coronavirus (PCR) 09/08/20 09/08/20 09/08/20 05:00 05:25 12:02 WBC RBC Hgb Hct MCHC RDW Lymph % (Auto) [place] % (Auto) Lymph # (Auto) [place] # (Auto) Seg Neutrophils % Seg Neuts % (Manual) Lymphocytes % (Manual) Monocytes % (Manual) Nucleated RBC % Seg Neutrophils # Seg Neutrophils # Man Lymphocytes # (Manual) Monocytes # (Manual) PT INR D-Dimer ABG pH 7.088 L POC ABG pCO2 69.1 H POC ABG pO2 35.2 L ABG pO2 ABG HCO3 ABG Base Excess ABG Hemoglobin 10.9 L ABG Oxyhemoglobin 57.1 L ABG Sodium ABG Potassium 7.0 H ABG Chloride 108.0 H ABG Glucose Carboxyhemoglobin 0.4 L Sodium Potassium 8.1 H* Chloride Carbon Dioxide 17 L BUN 38 H Creatinine 3.7 H Glucose POC Glucose Lactic Acid Calcium 8.0 L Phosphorus 8.00 H Ferritin Total Bilirubin Direct Bilirubin 0.5 H AST 3696 H ALT 3331 H Lactate Dehydrogenase Total Creatine Kinase Troponin T Total Protein Albumin 3.5 L Triglycerides Arterial Blood Glucose Arterial Blood Ionized Calcium 4.4 L Urine pH Urine Creatinine Salicylates Acetaminophen Coronavirus (PCR) 09/08/20 09/08/20 09/08/20 16:31 22:36 Unknown WBC RBC Hgb Hct MCHC RDW Lymph % (Auto) [place] % (Auto) Lymph # (Auto) [place] # (Auto) Seg Neutrophils % Seg Neuts % (Manual) Lymphocytes % (Manual) Monocytes % (Manual) Nucleated RBC % Seg Neutrophils # Seg Neutrophils # Man Lymphocytes # (Manual) Monocytes # (Manual) PT INR D-Dimer ABG pH POC ABG pCO2 POC ABG pO2 ABG pO2 ABG HCO3 ABG Base Excess ABG Hemoglobin ABG Oxyhemoglobin ABG Sodium ABG Potassium ABG Chloride ABG Glucose Carboxyhemoglobin Sodium Potassium 5.3 H D Chloride Carbon Dioxide BUN Creatinine Glucose POC Glucose 158 H Lactic Acid Calcium Phosphorus Ferritin Total Bilirubin Direct Bilirubin AST ALT Lactate Dehydrogenase Total Creatine Kinase Troponin T Total Protein Albumin Triglycerides Arterial Blood Glucose Arterial Blood Ionized Calcium Urine pH Urine Creatinine Salicylates Acetaminophen Coronavirus (PCR) Positive A 09/08/20 09/08/20 09/08/20 Unknown Unknown Unknown WBC 18.4 H RBC Hgb 10.1 L Hct 32.0 L MCHC RDW 18.2 H Lymph % (Auto) [place] % (Auto) Lymph # (Auto) [place] # (Auto) Seg Neutrophils % Seg Neuts % (Manual) 81.0 H Lymphocytes % (Manual) 2.0 L Monocytes % (Manual) Nucleated RBC % 1.0 H Seg Neutrophils # Seg Neutrophils # Man 14.9 H Lymphocytes # (Manual) 0.4 L Monocytes # (Manual) 1.1 H PT 21.2 H INR 1.83 H D-Dimer ABG pH POC ABG pCO2 POC ABG pO2 ABG pO2 ABG HCO3 ABG Base Excess ABG Hemoglobin ABG Oxyhemoglobin ABG Sodium ABG Potassium ABG Chloride ABG Glucose Carboxyhemoglobin Sodium Potassium Chloride Carbon Dioxide BUN Creatinine Glucose POC Glucose Lactic Acid Calcium Phosphorus Ferritin Total Bilirubin Direct Bilirubin AST ALT Lactate Dehydrogenase Total Creatine Kinase Troponin T Total Protein Albumin Triglycerides Arterial Blood Glucose Arterial Blood Ionized Calcium Urine pH Urine Creatinine 182.4 H Salicylates Acetaminophen Coronavirus (PCR) 09/09/20 09/09/20 09/09/20 03:14 04:20 04:20 WBC 16.3 H RBC 3.12 L Hgb 8.6 L Hct 26.8 L MCHC RDW 18.2 H Lymph % (Auto) 6.3 L [place] % (Auto) 8.8 H Lymph # (Auto) 1.0 L [place] # (Auto) 1.4 H Seg Neutrophils % 84.5 H Seg Neuts % (Manual) Lymphocytes % (Manual) Monocytes % (Manual) Nucleated RBC % Seg Neutrophils # 13.7 H Seg Neutrophils # Man Lymphocytes # (Manual) Monocytes # (Manual) PT INR D-Dimer ABG pH POC ABG pCO2 POC ABG pO2 148.5 H ABG pO2 ABG HCO3 ABG Base Excess ABG Hemoglobin 9.4 L ABG Oxyhemoglobin 98.8 H ABG Sodium 134.8 L ABG Potassium 5.0 H ABG Chloride ABG Glucose 222 H Carboxyhemoglobin 0.1 L Sodium Potassium 5.2 H Chloride Carbon Dioxide BUN 47 H Creatinine 4.3 H Glucose 211 H POC Glucose Lactic Acid Calcium 7.4 L Phosphorus Ferritin Total Bilirubin [place] 68590 H ALT 6206 H Lactate Dehydrogenase Total Creatine Kinase Troponin T Total Protein 5.6 L Albumin 3.0 L Triglycerides Arterial Blood Glucose 222 H Arterial Blood Ionized Calcium 3.8 L Urine pH Urine Creatinine Salicylates Acetaminophen Coronavirus (PCR) 09/09/20 09/09/20 09/09/20 10:00 12:23 18:22 WBC RBC Hgb Hct MCHC RDW Lymph % (Auto) [place] % (Auto) Lymph # (Auto) [place] # (Auto) Seg Neutrophils % Seg Neuts % (Manual) Lymphocytes % (Manual) Monocytes % (Manual) Nucleated RBC % Seg Neutrophils # Seg Neutrophils # Man Lymphocytes # (Manual) Monocytes # (Manual) PT 21.7 H INR 1.90 H D-Dimer ABG pH POC ABG pCO2 POC ABG pO2 ABG pO2 ABG HCO3 ABG Base Excess ABG Hemoglobin ABG Oxyhemoglobin ABG Sodium ABG Potassium ABG Chloride ABG Glucose Carboxyhemoglobin Sodium Potassium Chloride Carbon Dioxide BUN Creatinine Glucose POC Glucose 216 H 211 H Lactic Acid Calcium Phosphorus Ferritin Total Bilirubin Direct Bilirubin AST ALT Lactate Dehydrogenase Total Creatine Kinase Troponin T Total Protein Albumin Triglycerides Arterial Blood Glucose Arterial Blood Ionized Calcium Urine pH Urine Creatinine Salicylates Acetaminophen Coronavirus (PCR) 09/10/20 09/10/20 09/10/20 04:00 04:05 04:05 WBC 15.0 H RBC 3.06 L Hgb 8.6 L Hct 25.8 L MCHC RDW 18.0 H Lymph % (Auto) [place] % (Auto) Lymph # (Auto) [place] # (Auto) Seg Neutrophils % Seg Neuts % (Manual) 86.0 H Lymphocytes % (Manual) 6.0 L Monocytes % (Manual) 8.0 H Nucleated RBC % Seg Neutrophils # Seg Neutrophils # Man 12.9 H Lymphocytes # (Manual) 0.9 L Monocytes # (Manual) 1.2 H PT 18.4 H INR 1.54 H D-Dimer ABG pH POC ABG pCO2 POC ABG pO2 ABG pO2 ABG HCO3 ABG Base Excess ABG Hemoglobin ABG Oxyhemoglobin ABG Sodium ABG Potassium ABG Chloride ABG Glucose Carboxyhemoglobin Sodium 134 L Potassium Chloride 93.7 L Carbon Dioxide BUN 46 H Creatinine 3.6 H Glucose 275 H POC Glucose Lactic Acid Calcium 7.7 L Phosphorus Ferritin Total Bilirubin 1.30 H Direct Bilirubin AST 5899 H ALT 6440 H Lactate Dehydrogenase Total Creatine Kinase Troponin T Total Protein 5.9 L Albumin 3.3 L Triglycerides Arterial Blood Glucose Arterial Blood Ionized Calcium Urine pH Urine Creatinine Salicylates Acetaminophen Coronavirus (PCR) 09/10/20 09/10/20 09/10/20 04:35 12:06 17:42 WBC RBC Hgb Hct MCHC RDW Lymph % (Auto) [place] % (Auto) Lymph # (Auto) [place] # (Auto) Seg Neutrophils % Seg Neuts % (Manual) Lymphocytes % (Manual) Monocytes % (Manual) Nucleated RBC % Seg Neutrophils # Seg Neutrophils # Man Lymphocytes # (Manual) Monocytes # (Manual) PT INR D-Dimer ABG pH 7.464 H POC ABG pCO2 POC ABG pO2 ABG pO2 ABG HCO3 ABG Base Excess ABG Hemoglobin 9.9 L ABG Oxyhemoglobin ABG Sodium 131.6 L ABG Potassium ABG Chloride 97.0 L ABG Glucose 281 H Carboxyhemoglobin 0.1 L Sodium Potassium Chloride Carbon Dioxide BUN Creatinine Glucose POC Glucose 298 H 340 H Lactic Acid Calcium Phosphorus Ferritin Total Bilirubin Direct Bilirubin AST ALT Lactate Dehydrogenase Total Creatine Kinase Troponin T Total Protein Albumin Triglycerides Arterial Blood Glucose 281 H Arterial Blood Ionized Calcium 3.9 L Urine pH Urine Creatinine Salicylates Acetaminophen Coronavirus (PCR) 09/10/20 09/11/20 09/11/20 23:07 04:44 05:17 WBC RBC Hgb Hct MCHC RDW Lymph % (Auto) [place] % (Auto) Lymph # (Auto) [place] # (Auto) Seg Neutrophils % Seg Neuts % (Manual) Lymphocytes % (Manual) Monocytes % (Manual) Nucleated RBC % Seg Neutrophils # Seg Neutrophils # Man Lymphocytes # (Manual) Monocytes # (Manual) PT 16.9 H INR 1.39 H D-Dimer ABG pH POC ABG pCO2 POC ABG pO2 ABG pO2 ABG HCO3 ABG Base Excess ABG Hemoglobin ABG Oxyhemoglobin ABG Sodium ABG Potassium ABG Chloride ABG Glucose Carboxyhemoglobin Sodium Potassium Chloride Carbon Dioxide BUN Creatinine Glucose POC Glucose 367 H 416 H Lactic Acid Calcium Phosphorus Ferritin Total Bilirubin Direct Bilirubin AST ALT Lactate Dehydrogenase Total Creatine Kinase Troponin T Total Protein Albumin Triglycerides Arterial Blood Glucose Arterial Blood Ionized Calcium Urine pH Urine Creatinine Salicylates Acetaminophen Coronavirus (PCR) 09/11/20 09/11/20 09/11/20 05:40 12:01 17:50 WBC RBC Hgb Hct MCHC RDW Lymph % (Auto) [place] % (Auto) Lymph # (Auto) [place] # (Auto) Seg Neutrophils % Seg Neuts % (Manual) Lymphocytes % (Manual) Monocytes % (Manual) Nucleated RBC % Seg Neutrophils # Seg Neutrophils # Man Lymphocytes # (Manual) Monocytes # (Manual) PT INR D-Dimer ABG pH 7.543 H POC ABG pCO2 POC ABG pO2 ABG pO2 112.1 H ABG HCO3 28.1 H ABG Base Excess 5.4 H ABG Hemoglobin 8.4 L ABG Oxyhemoglobin ABG Sodium ABG Potassium ABG Chloride ABG Glucose Carboxyhemoglobin Sodium Potassium Chloride Carbon Dioxide BUN Creatinine Glucose POC Glucose 418 H 404 H Lactic Acid Calcium Phosphorus Ferritin Total Bilirubin Direct Bilirubin AST ALT Lactate Dehydrogenase Total Creatine Kinase Troponin T Total Protein Albumin Triglycerides Arterial Blood Glucose Arterial Blood Ionized Calcium Urine pH Urine Creatinine Salicylates Acetaminophen Coronavirus (PCR) 09/11/20 09/11/20 09/12/20 23:10 23:43 03:15 WBC RBC Hgb Hct MCHC RDW Lymph % (Auto) [place] % (Auto) Lymph # (Auto) [place] # (Auto) Seg Neutrophils % Seg Neuts % (Manual) Lymphocytes % (Manual) Monocytes % (Manual) Nucleated RBC % Seg Neutrophils # Seg Neutrophils # Man Lymphocytes # (Manual) Monocytes # (Manual) PT INR D-Dimer ABG pH POC ABG pCO2 POC ABG pO2 ABG pO2 ABG HCO3 ABG Base Excess ABG Hemoglobin ABG Oxyhemoglobin ABG Sodium ABG Potassium ABG Chloride ABG Glucose Carboxyhemoglobin Sodium 135 L Potassium Chloride 92.3 L Carbon Dioxide BUN 62 H Creatinine 3.7 H Glucose 406 H POC Glucose 372 H 359 H Lactic Acid Calcium Phosphorus Ferritin Total Bilirubin Direct Bilirubin AST 687 H ALT 3701 H Lactate Dehydrogenase Total Creatine Kinase Troponin T Total Protein 5.8 L Albumin 3.1 L Triglycerides Arterial Blood Glucose Arterial Blood Ionized Calcium Urine pH Urine Creatinine Salicylates Acetaminophen Coronavirus (PCR) 09/12/20 09/12/20 09/12/20 03:18 04:00 04:00 WBC 13.7 H RBC 3.30 L Hgb 9.3 L Hct 27.6 L MCHC RDW 17.5 H Lymph % (Auto) [place] % (Auto) Lymph # (Auto) [place] # (Auto) Seg Neutrophils % Seg Neuts % (Manual) 76.0 H Lymphocytes % (Manual) 11.0 L Monocytes % (Manual) 13.0 H Nucleated RBC % Seg Neutrophils # Seg Neutrophils # Man 10.4 H Lymphocytes # (Manual) Monocytes # (Manual) 1.8 H PT 16.1 H INR 1.31 H D-Dimer ABG pH 7.558 H POC ABG pCO2 POC ABG pO2 74.7 L ABG pO2 ABG HCO3 ABG Base Excess ABG Hemoglobin 9.7 L ABG Oxyhemoglobin ABG Sodium 132.4 L ABG Potassium ABG Chloride 95.0 L ABG Glucose 437 H Carboxyhemoglobin Sodium Potassium Chloride Carbon Dioxide BUN Creatinine Glucose POC Glucose Lactic Acid Calcium Phosphorus Ferritin Total Bilirubin Direct Bilirubin AST ALT Lactate Dehydrogenase Total Creatine Kinase Troponin T Total Protein Albumin Triglycerides Arterial Blood Glucose 437 H Arterial Blood Ionized Calcium 4.3 L Urine pH Urine Creatinine Salicylates Acetaminophen Coronavirus (PCR) 09/12/20 09/12/20 09/12/20 04:21 05:20 06:37 WBC RBC Hgb Hct MCHC RDW Lymph % (Auto) [place] % (Auto) Lymph # (Auto) [place] # (Auto) Seg Neutrophils % Seg Neuts % (Manual) Lymphocytes % (Manual) Monocytes % (Manual) Nucleated RBC % Seg Neutrophils # Seg Neutrophils # Man Lymphocytes # (Manual) Monocytes # (Manual) PT INR D-Dimer ABG pH POC ABG pCO2 POC ABG pO2 ABG pO2 ABG HCO3 ABG Base Excess ABG Hemoglobin ABG Oxyhemoglobin ABG Sodium ABG Potassium ABG Chloride ABG Glucose Carboxyhemoglobin Sodium Potassium Chloride Carbon Dioxide BUN Creatinine Glucose POC Glucose 417 H 397 H 370 H Lactic Acid Calcium Phosphorus Ferritin Total Bilirubin Direct Bilirubin AST ALT Lactate Dehydrogenase Total Creatine Kinase Troponin T Total Protein Albumin Triglycerides Arterial Blood Glucose Arterial Blood Ionized Calcium Urine pH Urine Creatinine Salicylates Acetaminophen Coronavirus (PCR) 09/12/20 09/12/20 09/12/20 11:56 17:14 21:52 WBC RBC Hgb Hct MCHC RDW Lymph % (Auto) [place] % (Auto) Lymph # (Auto) [place] # (Auto) Seg Neutrophils % Seg Neuts % (Manual) Lymphocytes % (Manual) Monocytes % (Manual) Nucleated RBC % Seg Neutrophils # Seg Neutrophils # Man Lymphocytes # (Manual) Monocytes # (Manual) PT INR D-Dimer ABG pH POC ABG pCO2 POC ABG pO2 ABG pO2 ABG HCO3 ABG Base Excess ABG Hemoglobin ABG Oxyhemoglobin ABG Sodium ABG Potassium ABG Chloride ABG Glucose Carboxyhemoglobin Sodium Potassium Chloride Carbon Dioxide BUN Creatinine Glucose POC Glucose 341 H 325 H 285 H Lactic Acid Calcium Phosphorus Ferritin Total Bilirubin Direct Bilirubin AST ALT Lactate Dehydrogenase Total Creatine Kinase Troponin T Total Protein Albumin Triglycerides Arterial Blood Glucose Arterial Blood Ionized Calcium Urine pH Urine Creatinine Salicylates Acetaminophen Coronavirus (PCR) 09/12/20 09/12/20 09/12/20 23:39 Unknown Unknown WBC RBC Hgb Hct MCHC RDW Lymph % (Auto) [place] % (Auto) Lymph # (Auto) [place] # (Auto) Seg Neutrophils % Seg Neuts % (Manual) Lymphocytes % (Manual) Monocytes % (Manual) Nucleated RBC % Seg Neutrophils # Seg Neutrophils # Man Lymphocytes # (Manual) Monocytes # (Manual) PT INR D-Dimer ABG pH POC ABG pCO2 POC ABG pO2 ABG pO2 ABG HCO3 ABG Base Excess ABG Hemoglobin ABG Oxyhemoglobin ABG Sodium ABG Potassium ABG Chloride ABG Glucose Carboxyhemoglobin Sodium 135 L Potassium Chloride 92.2 L Carbon Dioxide BUN 65 H Creatinine 3.5 H Glucose 418 H POC Glucose 338 H Lactic Acid Calcium Phosphorus Ferritin Total Bilirubin Direct Bilirubin AST 553 H ALT 3453 H Lactate Dehydrogenase Total Creatine Kinase Troponin T Total Protein 5.9 L Albumin 3.0 L Triglycerides 220 H Arterial Blood Glucose Arterial Blood Ionized Calcium Urine pH Urine Creatinine Salicylates Acetaminophen Coronavirus (PCR) 09/13/20 09/13/20 09/13/20 04:47 05:24 10:50 WBC RBC Hgb Hct MCHC RDW Lymph % (Auto) [place] % (Auto) Lymph # (Auto) [place] # (Auto) Seg Neutrophils % Seg Neuts % (Manual) Lymphocytes % (Manual) Monocytes % (Manual) Nucleated RBC % Seg Neutrophils # Seg Neutrophils # Man Lymphocytes # (Manual) Monocytes # (Manual) PT INR D-Dimer ABG pH 7.571 H POC ABG pCO2 POC ABG pO2 69.0 L ABG pO2 ABG HCO3 ABG Base Excess ABG Hemoglobin 10.1 L ABG Oxyhemoglobin 93.2 L ABG Sodium 134.0 L ABG Potassium ABG Chloride ABG Glucose 365 H Carboxyhemoglobin 0.4 L Sodium Potassium Chloride 96.6 L Carbon Dioxide 32 H BUN 76 H Creatinine 3.1 H Glucose 395 H POC Glucose 329 H Lactic Acid Calcium Phosphorus Ferritin Total Bilirubin Direct Bilirubin AST ALT Lactate Dehydrogenase Total Creatine Kinase Troponin T Total Protein Albumin Triglycerides Arterial Blood Glucose 365 H Arterial Blood Ionized Calcium Urine pH Urine Creatinine Salicylates Acetaminophen Coronavirus (PCR) 09/13/20 09/13/20 09/13/20 11:39 17:48 23:35 WBC RBC Hgb Hct MCHC RDW Lymph % (Auto) [place] % (Auto) Lymph # (Auto) [place] # (Auto) Seg Neutrophils % Seg Neuts % (Manual) Lymphocytes % (Manual) Monocytes % (Manual) Nucleated RBC % Seg Neutrophils # Seg Neutrophils # Man Lymphocytes # (Manual) Monocytes # (Manual) PT INR D-Dimer ABG pH POC ABG pCO2 POC ABG pO2 ABG pO2 ABG HCO3 ABG Base Excess ABG Hemoglobin ABG Oxyhemoglobin ABG Sodium ABG Potassium ABG Chloride ABG Glucose Carboxyhemoglobin Sodium Potassium Chloride Carbon Dioxide BUN Creatinine Glucose POC Glucose 344 H 286 H 223 H Lactic Acid Calcium Phosphorus Ferritin Total Bilirubin Direct Bilirubin AST ALT Lactate Dehydrogenase Total Creatine Kinase Troponin T Total Protein Albumin Triglycerides Arterial Blood Glucose Arterial Blood Ionized Calcium Urine pH Urine Creatinine Salicylates Acetaminophen Coronavirus (PCR) 09/14/20 09/14/20 09/14/20 03:54 05:34 10:27 WBC RBC Hgb Hct MCHC RDW Lymph % (Auto) [place] % (Auto) Lymph # (Auto) [place] # (Auto) Seg Neutrophils % Seg Neuts % (Manual) Lymphocytes % (Manual) Monocytes % (Manual) Nucleated RBC % Seg Neutrophils # Seg Neutrophils # Man Lymphocytes # (Manual) Monocytes # (Manual) PT INR D-Dimer ABG pH POC ABG pCO2 POC ABG pO2 71.1 L ABG pO2 ABG HCO3 ABG Base Excess ABG Hemoglobin 10.3 L ABG Oxyhemoglobin ABG Sodium 135.2 L ABG Potassium ABG Chloride ABG Glucose 281 H Carboxyhemoglobin Sodium Potassium Chloride 96.6 L Carbon Dioxide BUN 100 H Creatinine 3.9 H Glucose 286 H POC Glucose 252 H Lactic Acid Calcium Phosphorus Ferritin Total Bilirubin Direct Bilirubin AST 145 H ALT 1400 H Lactate Dehydrogenase Total Creatine Kinase Troponin T Total Protein 5.6 L Albumin 2.9 L Triglycerides Arterial Blood Glucose 281 H Arterial Blood Ionized Calcium Urine pH Urine Creatinine Salicylates Acetaminophen Coronavirus (PCR) 09/14/20 09/14/20 09/14/20 11:38 17:52 23:07 WBC RBC Hgb Hct MCHC RDW Lymph % (Auto) [place] % (Auto) Lymph # (Auto) [place] # (Auto) Seg Neutrophils % Seg Neuts % (Manual) Lymphocytes % (Manual) Monocytes % (Manual) Nucleated RBC % Seg Neutrophils # Seg Neutrophils # Man Lymphocytes # (Manual) Monocytes # (Manual) PT INR D-Dimer ABG pH POC ABG pCO2 POC ABG pO2 ABG pO2 ABG HCO3 ABG Base Excess ABG Hemoglobin ABG Oxyhemoglobin ABG Sodium ABG Potassium ABG Chloride ABG Glucose Carboxyhemoglobin Sodium Potassium Chloride Carbon Dioxide BUN Creatinine Glucose POC Glucose 247 H 247 H 256 H Lactic Acid Calcium Phosphorus Ferritin Total Bilirubin Direct Bilirubin AST ALT Lactate Dehydrogenase Total Creatine Kinase Troponin T Total Protein Albumin Triglycerides Arterial Blood Glucose Arterial Blood Ionized Calcium Urine pH Urine Creatinine Salicylates Acetaminophen Coronavirus (PCR) 09/15/20 09/15/20 09/15/20 04:54 11:24 17:48 WBC RBC Hgb Hct MCHC RDW Lymph % (Auto) [place] % (Auto) Lymph # (Auto) [place] # (Auto) Seg Neutrophils % Seg Neuts % (Manual) Lymphocytes % (Manual) Monocytes % (Manual) Nucleated RBC % Seg Neutrophils # Seg Neutrophils # Man Lymphocytes # (Manual) Monocytes # (Manual) PT INR D-Dimer ABG pH POC ABG pCO2 POC ABG pO2 ABG pO2 ABG HCO3 ABG Base Excess ABG Hemoglobin ABG Oxyhemoglobin ABG Sodium ABG Potassium ABG Chloride ABG Glucose Carboxyhemoglobin Sodium Potassium Chloride Carbon Dioxide BUN Creatinine Glucose POC Glucose 271 H 228 H 254 H Lactic Acid Calcium Phosphorus Ferritin Total Bilirubin Direct Bilirubin AST ALT Lactate Dehydrogenase Total Creatine Kinase Troponin T Total Protein Albumin Triglycerides Arterial Blood Glucose Arterial Blood Ionized Calcium Urine pH Urine Creatinine Salicylates Acetaminophen Coronavirus (PCR) 09/15/20 09/15/20 09/15/20 19:20 19:20 23:13 WBC 27.3 H RBC 3.16 L Hgb 8.8 L Hct 27.0 L MCHC RDW 19.7 H Lymph % (Auto) [place] % (Auto) Lymph # (Auto) [place] # (Auto) Seg Neutrophils % Seg Neuts % (Manual) 81.0 H Lymphocytes % (Manual) 9.0 L Monocytes % (Manual) 10.0 H Nucleated RBC % Seg Neutrophils # Seg Neutrophils # Man 22.1 H Lymphocytes # (Manual) Monocytes # (Manual) 2.7 H PT INR D-Dimer ABG pH POC ABG pCO2 POC ABG pO2 ABG pO2 ABG HCO3 ABG Base Excess ABG Hemoglobin ABG Oxyhemoglobin ABG Sodium ABG Potassium ABG Chloride ABG Glucose Carboxyhemoglobin Sodium Potassium Chloride Carbon Dioxide BUN 68 H Creatinine 2.8 H Glucose 288 H POC Glucose 259 H Lactic Acid Calcium Phosphorus Ferritin Total Bilirubin Direct Bilirubin AST ALT Lactate Dehydrogenase Total Creatine Kinase Troponin T Total Protein Albumin Triglycerides Arterial Blood Glucose Arterial Blood Ionized Calcium Urine pH Urine Creatinine Salicylates Acetaminophen Coronavirus (PCR) 09/16/20 09/16/20 09/16/20 05:27 09:40 11:48 WBC RBC Hgb Hct MCHC RDW Lymph % (Auto) [place] % (Auto) Lymph # (Auto) [place] # (Auto) Seg Neutrophils % Seg Neuts % (Manual) Lymphocytes % (Manual) Monocytes % (Manual) Nucleated RBC % Seg Neutrophils # Seg Neutrophils # Man Lymphocytes # (Manual) Monocytes # (Manual) PT INR D-Dimer ABG pH POC ABG pCO2 POC ABG pO2 ABG pO2 ABG HCO3 ABG Base Excess ABG Hemoglobin ABG Oxyhemoglobin ABG Sodium ABG Potassium ABG Chloride ABG Glucose Carboxyhemoglobin Sodium Potassium Chloride Carbon Dioxide 31 H BUN 77 H Creatinine 2.9 H Glucose 250 H POC Glucose 275 H 234 H Lactic Acid Calcium Phosphorus Ferritin Total Bilirubin Direct Bilirubin AST ALT Lactate Dehydrogenase Total Creatine Kinase Troponin T Total Protein Albumin Triglycerides Arterial Blood Glucose Arterial Blood Ionized Calcium Urine pH Urine Creatinine Salicylates Acetaminophen Coronavirus (PCR) 09/16/20 09/16/20 09/17/20 17:40 23:23 00:01 WBC RBC Hgb Hct MCHC RDW Lymph % (Auto) [place] % (Auto) Lymph # (Auto) [place] # (Auto) Seg Neutrophils % Seg Neuts % (Manual) Lymphocytes % (Manual) Monocytes % (Manual) Nucleated RBC % Seg Neutrophils # Seg Neutrophils # Man Lymphocytes # (Manual) Monocytes # (Manual) PT INR D-Dimer ABG pH POC ABG pCO2 POC ABG pO2 ABG pO2 ABG HCO3 ABG Base Excess ABG Hemoglobin ABG Oxyhemoglobin ABG Sodium ABG Potassium ABG Chloride ABG Glucose Carboxyhemoglobin Sodium Potassium Chloride Carbon Dioxide BUN Creatinine Glucose POC Glucose 172 H 161 H Lactic Acid 2.10 H* Calcium Phosphorus Ferritin Total Bilirubin Direct Bilirubin AST ALT Lactate Dehydrogenase Total Creatine Kinase Troponin T Total Protein Albumin Triglycerides Arterial Blood Glucose Arterial Blood Ionized Calcium Urine pH Urine Creatinine Salicylates Acetaminophen Coronavirus (PCR) 09/17/20 09/17/20 09/17/20 04:00 04:00 05:09 WBC 19.5 H RBC 3.03 L Hgb 8.6 L Hct 26.3 L MCHC RDW 19.4 H Lymph % (Auto) 8.7 L [place] % (Auto) 13.7 H Lymph # (Auto) [place] # (Auto) 2.7 H Seg Neutrophils % 76.9 H Seg Neuts % (Manual) Lymphocytes % (Manual) Monocytes % (Manual) Nucleated RBC % Seg Neutrophils # 15.0 H Seg Neutrophils # Man Lymphocytes # (Manual) Monocytes # (Manual) PT INR D-Dimer ABG pH POC ABG pCO2 POC ABG pO2 ABG pO2 ABG HCO3 ABG Base Excess ABG Hemoglobin ABG Oxyhemoglobin ABG Sodium ABG Potassium ABG Chloride ABG Glucose Carboxyhemoglobin Sodium 146 H Potassium 3.1 L Chloride Carbon Dioxide BUN 79 H Creatinine 2.6 H Glucose 122 H POC Glucose 116 H Lactic Acid Calcium Phosphorus Ferritin Total Bilirubin Direct Bilirubin AST 64 H ALT 516 H Lactate Dehydrogenase Total Creatine Kinase Troponin T Total Protein 5.7 L Albumin 2.8 L Triglycerides Arterial Blood Glucose Arterial Blood Ionized Calcium Urine pH Urine Creatinine Salicylates Acetaminophen Coronavirus (PCR) 09/17/20 09/17/20 09/18/20 13:52 17:38 05:16 WBC RBC Hgb Hct MCHC RDW Lymph % (Auto) [place] % (Auto) Lymph # (Auto) [place] # (Auto) Seg Neutrophils % Seg Neuts % (Manual) Lymphocytes % (Manual) Monocytes % (Manual) Nucleated RBC % Seg Neutrophils # Seg Neutrophils # Man Lymphocytes # (Manual) Monocytes # (Manual) PT INR D-Dimer ABG pH POC ABG pCO2 POC ABG pO2 ABG pO2 ABG HCO3 ABG Base Excess ABG Hemoglobin ABG Oxyhemoglobin ABG Sodium ABG Potassium ABG Chloride ABG Glucose Carboxyhemoglobin Sodium Potassium Chloride Carbon Dioxide BUN Creatinine Glucose POC Glucose 68 L 126 H Lactic Acid 2.90 H* Calcium Phosphorus Ferritin Total Bilirubin Direct Bilirubin AST ALT Lactate Dehydrogenase Total Creatine Kinase Troponin T Total Protein Albumin Triglycerides Arterial Blood Glucose Arterial Blood Ionized Calcium Urine pH Urine Creatinine Salicylates Acetaminophen Coronavirus (PCR) 09/18/20 09/18/20 09/18/20 05:30 05:30 11:42 WBC 18.2 H RBC 3.18 L Hgb 9.0 L Hct 27.2 L MCHC RDW 18.8 H Lymph % (Auto) [place] % (Auto) Lymph # (Auto) [place] # (Auto) Seg Neutrophils % Seg Neuts % (Manual) Lymphocytes % (Manual) Monocytes % (Manual) Nucleated RBC % Seg Neutrophils # Seg Neutrophils # Man Lymphocytes # (Manual) Monocytes # (Manual) PT INR D-Dimer ABG pH POC ABG pCO2 POC ABG pO2 ABG pO2 ABG HCO3 ABG Base Excess ABG Hemoglobin ABG Oxyhemoglobin ABG Sodium ABG Potassium ABG Chloride ABG Glucose Carboxyhemoglobin Sodium Potassium 3.1 L Chloride Carbon Dioxide BUN 73 H Creatinine 2.6 H Glucose 154 H POC Glucose 140 H Lactic Acid Calcium Phosphorus Ferritin Total Bilirubin Direct Bilirubin AST ALT Lactate Dehydrogenase Total Creatine Kinase Troponin T Total Protein Albumin Triglycerides Arterial Blood Glucose Arterial Blood Ionized Calcium Urine pH Urine Creatinine Salicylates Acetaminophen Coronavirus (PCR) 09/18/20 09/18/20 09/19/20 18:15 23:37 05:13 WBC 22.8 H RBC 3.30 L Hgb 9.2 L Hct 28.1 L MCHC RDW 18.2 H Lymph % (Auto) [place] % (Auto) Lymph # (Auto) [place] # (Auto) Seg Neutrophils % Seg Neuts % (Manual) 87.0 H Lymphocytes % (Manual) 5.0 L Monocytes % (Manual) Nucleated RBC % Seg Neutrophils # Seg Neutrophils # Man 19.8 H Lymphocytes # (Manual) 1.1 L Monocytes # (Manual) 1.6 H PT INR D-Dimer ABG pH POC ABG pCO2 POC ABG pO2 ABG pO2 ABG HCO3 ABG Base Excess ABG Hemoglobin ABG Oxyhemoglobin ABG Sodium ABG Potassium ABG Chloride ABG Glucose Carboxyhemoglobin Sodium Potassium Chloride Carbon Dioxide BUN Creatinine Glucose POC Glucose 149 H 153 H Lactic Acid Calcium Phosphorus Ferritin Total Bilirubin Direct Bilirubin AST ALT Lactate Dehydrogenase Total Creatine Kinase Troponin T Total Protein Albumin Triglycerides Arterial Blood Glucose Arterial Blood Ionized Calcium Urine pH Urine Creatinine Salicylates Acetaminophen Coronavirus (PCR) 09/19/20 09/19/20 09/19/20 05:13 05:25 11:56 WBC RBC Hgb Hct MCHC RDW Lymph % (Auto) [place] % (Auto) Lymph # (Auto) [place] # (Auto) Seg Neutrophils % Seg Neuts % (Manual) Lymphocytes % (Manual) Monocytes % (Manual) Nucleated RBC % Seg Neutrophils # Seg Neutrophils # Man Lymphocytes # (Manual) Monocytes # (Manual) PT INR D-Dimer ABG pH POC ABG pCO2 POC ABG pO2 ABG pO2 ABG HCO3 ABG Base Excess ABG Hemoglobin ABG Oxyhemoglobin ABG Sodium ABG Potassium ABG Chloride ABG Glucose Carboxyhemoglobin Sodium Potassium Chloride Carbon Dioxide BUN 55 H Creatinine 2.3 H Glucose 196 H POC Glucose 168 H 137 H Lactic Acid Calcium Phosphorus Ferritin Total Bilirubin Direct Bilirubin AST ALT Lactate Dehydrogenase Total Creatine Kinase Troponin T Total Protein Albumin Triglycerides Arterial Blood Glucose Arterial Blood Ionized Calcium Urine pH Urine Creatinine Salicylates Acetaminophen Coronavirus (PCR) 09/19/20 09/19/20 09/20/20 17:43 23:43 05:02 WBC RBC Hgb Hct MCHC RDW Lymph % (Auto) [place] % (Auto) Lymph # (Auto) [place] # (Auto) Seg Neutrophils % Seg Neuts % (Manual) Lymphocytes % (Manual) Monocytes % (Manual) Nucleated RBC % Seg Neutrophils # Seg Neutrophils # Man Lymphocytes # (Manual) Monocytes # (Manual) PT INR D-Dimer ABG pH POC ABG pCO2 POC ABG pO2 ABG pO2 ABG HCO3 ABG Base Excess ABG Hemoglobin ABG Oxyhemoglobin ABG Sodium ABG Potassium ABG Chloride ABG Glucose Carboxyhemoglobin Sodium Potassium Chloride Carbon Dioxide BUN Creatinine Glucose POC Glucose 114 H 136 H 163 H Lactic Acid Calcium Phosphorus Ferritin Total Bilirubin Direct Bilirubin AST ALT Lactate Dehydrogenase Total Creatine Kinase Troponin T Total Protein Albumin Triglycerides Arterial Blood Glucose Arterial Blood Ionized Calcium Urine pH Urine Creatinine Salicylates Acetaminophen Coronavirus (PCR) 09/20/20 09/20/20 09/20/20 05:36 05:36 11:10 WBC 20.1 H RBC 3.07 L Hgb 8.5 L Hct 26.4 L MCHC RDW 18.6 H Lymph % (Auto) 9.6 L [place] % (Auto) 9.6 H Lymph # (Auto) [place] # (Auto) 1.9 H Seg Neutrophils % 79.0 H Seg Neuts % (Manual) Lymphocytes % (Manual) Monocytes % (Manual) Nucleated RBC % Seg Neutrophils # 15.9 H Seg Neutrophils # Man Lymphocytes # (Manual) Monocytes # (Manual) PT INR D-Dimer ABG pH POC ABG pCO2 POC ABG pO2 ABG pO2 ABG HCO3 ABG Base Excess ABG Hemoglobin ABG Oxyhemoglobin ABG Sodium ABG Potassium ABG Chloride ABG Glucose Carboxyhemoglobin Sodium Potassium 3.3 L Chloride Carbon Dioxide BUN 76 H Creatinine 3.6 H D Glucose 213 H POC Glucose 167 H Lactic Acid Calcium Phosphorus Ferritin Total Bilirubin Direct Bilirubin AST ALT Lactate Dehydrogenase Total Creatine Kinase Troponin T Total Protein Albumin Triglycerides Arterial Blood Glucose Arterial Blood Ionized Calcium Urine pH Urine Creatinine Salicylates Acetaminophen Coronavirus (PCR) 09/20/20 09/20/20 09/20/20 14:02 17:24 23:30 WBC RBC Hgb Hct MCHC RDW Lymph % (Auto) [place] % (Auto) Lymph # (Auto) [place] # (Auto) Seg Neutrophils % Seg Neuts % (Manual) Lymphocytes % (Manual) Monocytes % (Manual) Nucleated RBC % Seg Neutrophils # Seg Neutrophils # Man Lymphocytes # (Manual) Monocytes # (Manual) PT INR D-Dimer ABG pH POC ABG pCO2 POC ABG pO2 ABG pO2 ABG HCO3 ABG Base Excess ABG Hemoglobin ABG Oxyhemoglobin ABG Sodium ABG Potassium ABG Chloride ABG Glucose Carboxyhemoglobin Sodium Potassium Chloride Carbon Dioxide BUN Creatinine Glucose POC Glucose 164 H 146 H 147 H Lactic Acid Calcium Phosphorus Ferritin Total Bilirubin Direct Bilirubin AST ALT Lactate Dehydrogenase Total Creatine Kinase Troponin T Total Protein Albumin Triglycerides Arterial Blood Glucose Arterial Blood Ionized Calcium Urine pH Urine Creatinine Salicylates Acetaminophen Coronavirus (PCR) 09/21/20 09/21/20 09/21/20 05:00 05:00 05:24 WBC 17.4 H RBC 2.95 L Hgb 8.3 L Hct 25.8 L MCHC RDW 19.3 H Lymph % (Auto) 11.1 L [place] % (Auto) 11.1 H Lymph # (Auto) [place] # (Auto) 1.9 H Seg Neutrophils % 75.9 H Seg Neuts % (Manual) Lymphocytes % (Manual) Monocytes % (Manual) Nucleated RBC % Seg Neutrophils # 13.2 H Seg Neutrophils # Man Lymphocytes # (Manual) Monocytes # (Manual) PT INR D-Dimer ABG pH POC ABG pCO2 POC ABG pO2 ABG pO2 ABG HCO3 ABG Base Excess ABG Hemoglobin ABG Oxyhemoglobin ABG Sodium ABG Potassium ABG Chloride ABG Glucose Carboxyhemoglobin Sodium Potassium Chloride Carbon Dioxide BUN 60 H Creatinine 3.5 H Glucose 185 H POC Glucose 139 H Lactic Acid Calcium Phosphorus Ferritin Total Bilirubin Direct Bilirubin AST ALT Lactate Dehydrogenase Total Creatine Kinase Troponin T Total Protein Albumin Triglycerides Arterial Blood Glucose Arterial Blood Ionized Calcium Urine pH Urine Creatinine Salicylates Acetaminophen Coronavirus (PCR) 09/21/20 09/21/20 09/21/20 11:59 17:59 23:32 WBC RBC Hgb Hct MCHC RDW Lymph % (Auto) [place] % (Auto) Lymph # (Auto) [place] # (Auto) Seg Neutrophils % Seg Neuts % (Manual) Lymphocytes % (Manual) Monocytes % (Manual) Nucleated RBC % Seg Neutrophils # Seg Neutrophils # Man Lymphocytes # (Manual) Monocytes # (Manual) PT INR D-Dimer ABG pH POC ABG pCO2 POC ABG pO2 ABG pO2 ABG HCO3 ABG Base Excess ABG Hemoglobin ABG Oxyhemoglobin ABG Sodium ABG Potassium ABG Chloride ABG Glucose Carboxyhemoglobin Sodium Potassium Chloride Carbon Dioxide BUN Creatinine Glucose POC Glucose 183 H 141 H 162 H Lactic Acid Calcium Phosphorus Ferritin Total Bilirubin Direct Bilirubin AST ALT Lactate Dehydrogenase Total Creatine Kinase Troponin T Total Protein Albumin Triglycerides Arterial Blood Glucose Arterial Blood Ionized Calcium Urine pH Urine Creatinine Salicylates Acetaminophen Coronavirus (PCR) 09/22/20 09/22/20 09/22/20 05:32 12:07 17:53 WBC RBC Hgb Hct MCHC RDW Lymph % (Auto) [place] % (Auto) Lymph # (Auto) [place] # (Auto) Seg Neutrophils % Seg Neuts % (Manual) Lymphocytes % (Manual) Monocytes % (Manual) Nucleated RBC % Seg Neutrophils # Seg Neutrophils # Man Lymphocytes # (Manual) Monocytes # (Manual) PT INR D-Dimer ABG pH POC ABG pCO2 POC ABG pO2 ABG pO2 ABG HCO3 ABG Base Excess ABG Hemoglobin ABG Oxyhemoglobin ABG Sodium ABG Potassium ABG Chloride ABG Glucose Carboxyhemoglobin Sodium Potassium Chloride Carbon Dioxide BUN Creatinine Glucose POC Glucose 172 H 169 H 178 H Lactic Acid Calcium Phosphorus Ferritin Total Bilirubin Direct Bilirubin AST ALT Lactate Dehydrogenase Total Creatine Kinase Troponin T Total Protein Albumin Triglycerides Arterial Blood Glucose Arterial Blood Ionized Calcium Urine pH Urine Creatinine Salicylates Acetaminophen Coronavirus (PCR) 09/22/20 09/23/20 09/23/20 23:34 05:21 06:05 WBC RBC Hgb Hct MCHC RDW Lymph % (Auto) [place] % (Auto) Lymph # (Auto) [place] # (Auto) Seg Neutrophils % Seg Neuts % (Manual) Lymphocytes % (Manual) Monocytes % (Manual) Nucleated RBC % Seg Neutrophils # Seg Neutrophils # Man Lymphocytes # (Manual) Monocytes # (Manual) PT INR D-Dimer ABG pH POC ABG pCO2 POC ABG pO2 ABG pO2 ABG HCO3 ABG Base Excess ABG Hemoglobin ABG Oxyhemoglobin ABG Sodium ABG Potassium ABG Chloride ABG Glucose Carboxyhemoglobin Sodium 147 H Potassium Chloride 109.2 H Carbon Dioxide 21 L BUN 54 H Creatinine 4.2 H Glucose 193 H POC Glucose 151 H 168 H Lactic Acid Calcium Phosphorus Ferritin Total Bilirubin Direct Bilirubin AST ALT Lactate Dehydrogenase Total Creatine Kinase Troponin T Total Protein Albumin Triglycerides Arterial Blood Glucose Arterial Blood Ionized Calcium Urine pH Urine Creatinine Salicylates Acetaminophen Coronavirus (PCR) 09/23/20 09/23/20 09/23/20 12:30 17:52 23:16 WBC RBC Hgb Hct MCHC RDW Lymph % (Auto) [place] % (Auto) Lymph # (Auto) [place] # (Auto) Seg Neutrophils % Seg Neuts % (Manual) Lymphocytes % (Manual) Monocytes % (Manual) Nucleated RBC % Seg Neutrophils # Seg Neutrophils # Man Lymphocytes # (Manual) Monocytes # (Manual) PT INR D-Dimer ABG pH POC ABG pCO2 POC ABG pO2 ABG pO2 ABG HCO3 ABG Base Excess ABG Hemoglobin ABG Oxyhemoglobin ABG Sodium ABG Potassium ABG Chloride ABG Glucose Carboxyhemoglobin Sodium Potassium Chloride Carbon Dioxide BUN Creatinine Glucose POC Glucose 170 H 164 H 160 H Lactic Acid Calcium Phosphorus Ferritin Total Bilirubin Direct Bilirubin AST ALT Lactate Dehydrogenase Total Creatine Kinase Troponin T Total Protein Albumin Triglycerides Arterial Blood Glucose Arterial Blood Ionized Calcium Urine pH Urine Creatinine Salicylates Acetaminophen Coronavirus (PCR) 09/24/20 09/24/20 09/24/20 05:22 05:44 12:32 WBC RBC Hgb Hct MCHC RDW Lymph % (Auto) [place] % (Auto) Lymph # (Auto) [place] # (Auto) Seg Neutrophils % Seg Neuts % (Manual) Lymphocytes % (Manual) Monocytes % (Manual) Nucleated RBC % Seg Neutrophils # Seg Neutrophils # Man Lymphocytes # (Manual) Monocytes # (Manual) PT INR D-Dimer ABG pH POC ABG pCO2 POC ABG pO2 ABG pO2 ABG HCO3 ABG Base Excess ABG Hemoglobin ABG Oxyhemoglobin ABG Sodium ABG Potassium ABG Chloride ABG Glucose Carboxyhemoglobin Sodium 148 H Potassium Chloride 109.2 H Carbon Dioxide BUN 61 H Creatinine 4.9 H Glucose 176 H POC Glucose 150 H 165 H Lactic Acid Calcium Phosphorus Ferritin Total Bilirubin Direct Bilirubin AST ALT Lactate Dehydrogenase Total Creatine Kinase Troponin T Total Protein Albumin Triglycerides Arterial Blood Glucose Arterial Blood Ionized Calcium Urine pH Urine Creatinine Salicylates Acetaminophen Coronavirus (PCR) 09/24/20 09/24/20 09/25/20 17:28 23:18 05:18 WBC RBC Hgb Hct MCHC RDW Lymph % (Auto) [place] % (Auto) Lymph # (Auto) [place] # (Auto) Seg Neutrophils % Seg Neuts % (Manual) Lymphocytes % (Manual) Monocytes % (Manual) Nucleated RBC % Seg Neutrophils # Seg Neutrophils # Man Lymphocytes # (Manual) Monocytes # (Manual) PT INR D-Dimer ABG pH POC ABG pCO2 POC ABG pO2 ABG pO2 ABG HCO3 ABG Base Excess ABG Hemoglobin ABG Oxyhemoglobin ABG Sodium ABG Potassium ABG Chloride ABG Glucose Carboxyhemoglobin Sodium 149 H Potassium 3.3 L Chloride 109.6 H Carbon Dioxide BUN 70 H Creatinine 5.6 H Glucose 196 H POC Glucose 153 H 177 H Lactic Acid Calcium Phosphorus Ferritin Total Bilirubin Direct Bilirubin AST 55 H ALT 74 H Lactate Dehydrogenase Total Creatine Kinase Troponin T Total Protein Albumin 2.6 L Triglycerides Arterial Blood Glucose Arterial Blood Ionized Calcium Urine pH Urine Creatinine Salicylates Acetaminophen Coronavirus (PCR) 09/25/20 09/25/20 09/25/20 05:18 11:47 17:04 WBC RBC Hgb Hct MCHC RDW Lymph % (Auto) [place] % (Auto) Lymph # (Auto) [place] # (Auto) Seg Neutrophils % Seg Neuts % (Manual) Lymphocytes % (Manual) Monocytes % (Manual) Nucleated RBC % Seg Neutrophils # Seg Neutrophils # Man Lymphocytes # (Manual) Monocytes # (Manual) PT INR D-Dimer ABG pH POC ABG pCO2 POC ABG pO2 ABG pO2 ABG HCO3 ABG Base Excess ABG Hemoglobin ABG Oxyhemoglobin ABG Sodium ABG Potassium ABG Chloride ABG Glucose Carboxyhemoglobin Sodium Potassium Chloride Carbon Dioxide BUN Creatinine Glucose POC Glucose 159 H 169 H 142 H Lactic Acid Calcium Phosphorus Ferritin Total Bilirubin Direct Bilirubin AST ALT Lactate Dehydrogenase Total Creatine Kinase Troponin T Total Protein Albumin Triglycerides Arterial Blood Glucose Arterial Blood Ionized Calcium Urine pH Urine Creatinine Salicylates Acetaminophen Coronavirus (PCR) 09/25/20 09/26/20 09/26/20 23:20 04:00 05:00 WBC RBC 2.93 L Hgb 8.5 L Hct 25.8 L MCHC RDW 18.5 H Lymph % (Auto) [place] % (Auto) 11.3 H Lymph # (Auto) [place] # (Auto) 1.1 H Seg Neutrophils % 72.0 H Seg Neuts % (Manual) Lymphocytes % (Manual) Monocytes % (Manual) Nucleated RBC % Seg Neutrophils # Seg Neutrophils # Man Lymphocytes # (Manual) Monocytes # (Manual) PT INR D-Dimer ABG pH POC ABG pCO2 POC ABG pO2 ABG pO2 ABG HCO3 ABG Base Excess ABG Hemoglobin ABG Oxyhemoglobin ABG Sodium ABG Potassium ABG Chloride ABG Glucose Carboxyhemoglobin Sodium Potassium 3.4 L Chloride Carbon Dioxide BUN 49 H Creatinine 4.4 H Glucose 179 H POC Glucose 138 H Lactic Acid Calcium Phosphorus Ferritin Total Bilirubin Direct Bilirubin AST ALT Lactate Dehydrogenase Total Creatine Kinase Troponin T Total Protein Albumin Triglycerides Arterial Blood Glucose Arterial Blood Ionized Calcium Urine pH Urine Creatinine Salicylates Acetaminophen Coronavirus (PCR) 09/26/20 09/26/20 09/26/20 05:18 11:59 17:37 WBC RBC Hgb Hct MCHC RDW Lymph % (Auto) [place] % (Auto) Lymph # (Auto) [place] # (Auto) Seg Neutrophils % Seg Neuts % (Manual) Lymphocytes % (Manual) Monocytes % (Manual) Nucleated RBC % Seg Neutrophils # Seg Neutrophils # Man Lymphocytes # (Manual) Monocytes # (Manual) PT INR D-Dimer ABG pH POC ABG pCO2 POC ABG pO2 ABG pO2 ABG HCO3 ABG Base Excess ABG Hemoglobin ABG Oxyhemoglobin ABG Sodium ABG Potassium ABG Chloride ABG Glucose Carboxyhemoglobin Sodium Potassium Chloride Carbon Dioxide BUN Creatinine Glucose POC Glucose 155 H 165 H 132 H Lactic Acid Calcium Phosphorus Ferritin Total Bilirubin Direct Bilirubin AST ALT Lactate Dehydrogenase Total Creatine Kinase Troponin T Total Protein Albumin Triglycerides Arterial Blood Glucose Arterial Blood Ionized Calcium Urine pH Urine Creatinine Salicylates Acetaminophen Coronavirus (PCR) 09/26/20 09/27/20 09/27/20 23:35 04:47 04:47 WBC RBC 3.24 L Hgb 9.3 L Hct 28.6 L MCHC RDW 18.2 H Lymph % (Auto) [place] % (Auto) 11.6 H Lymph # (Auto) [place] # (Auto) 1.0 H Seg Neutrophils % Seg Neuts % (Manual) Lymphocytes % (Manual) Monocytes % (Manual) Nucleated RBC % Seg Neutrophils # Seg Neutrophils # Man Lymphocytes # (Manual) Monocytes # (Manual) PT INR D-Dimer ABG pH POC ABG pCO2 POC ABG pO2 ABG pO2 ABG HCO3 ABG Base Excess ABG Hemoglobin ABG Oxyhemoglobin ABG Sodium ABG Potassium ABG Chloride ABG Glucose Carboxyhemoglobin Sodium Potassium Chloride Carbon Dioxide BUN 54 H Creatinine 4.7 H Glucose 218 H POC Glucose 180 H Lactic Acid Calcium Phosphorus Ferritin Total Bilirubin Direct Bilirubin AST ALT Lactate Dehydrogenase Total Creatine Kinase Troponin T Total Protein Albumin Triglycerides Arterial Blood Glucose Arterial Blood Ionized Calcium Urine pH Urine Creatinine Salicylates Acetaminophen Coronavirus (PCR) 09/27/20 09/27/20 09/27/20 05:14 11:49 17:48 WBC RBC Hgb Hct MCHC RDW Lymph % (Auto) [place] % (Auto) Lymph # (Auto) [place] # (Auto) Seg Neutrophils % Seg Neuts % (Manual) Lymphocytes % (Manual) Monocytes % (Manual) Nucleated RBC % Seg Neutrophils # Seg Neutrophils # Man Lymphocytes # (Manual) Monocytes # (Manual) PT INR D-Dimer ABG pH POC ABG pCO2 POC ABG pO2 ABG pO2 ABG HCO3 ABG Base Excess ABG Hemoglobin ABG Oxyhemoglobin ABG Sodium ABG Potassium ABG Chloride ABG Glucose Carboxyhemoglobin Sodium Potassium Chloride Carbon Dioxide BUN Creatinine Glucose POC Glucose 197 H 219 H 203 H Lactic Acid Calcium Phosphorus Ferritin Total Bilirubin Direct Bilirubin AST ALT Lactate Dehydrogenase Total Creatine Kinase Troponin T Total Protein Albumin Triglycerides Arterial Blood Glucose Arterial Blood Ionized Calcium Urine pH Urine Creatinine Salicylates Acetaminophen Coronavirus (PCR) 09/27/20 09/28/20 09/28/20 23:26 05:28 07:02 WBC RBC Hgb Hct MCHC RDW Lymph % (Auto) [place] % (Auto) Lymph # (Auto) [place] # (Auto) Seg Neutrophils % Seg Neuts % (Manual) Lymphocytes % (Manual) Monocytes % (Manual) Nucleated RBC % Seg Neutrophils # Seg Neutrophils # Man Lymphocytes # (Manual) Monocytes # (Manual) PT INR D-Dimer ABG pH POC ABG pCO2 POC ABG pO2 ABG pO2 ABG HCO3 ABG Base Excess ABG Hemoglobin ABG Oxyhemoglobin ABG Sodium ABG Potassium ABG Chloride ABG Glucose Carboxyhemoglobin Sodium Potassium Chloride Carbon Dioxide BUN 37 H Creatinine 3.8 H Glucose 270 H POC Glucose 243 H 227 H Lactic Acid Calcium Phosphorus Ferritin Total Bilirubin Direct Bilirubin AST ALT Lactate Dehydrogenase Total Creatine Kinase Troponin T Total Protein Albumin Triglycerides Arterial Blood Glucose Arterial Blood Ionized Calcium Urine pH Urine Creatinine Salicylates Acetaminophen Coronavirus (PCR) 09/28/20 07:02 WBC RBC 3.26 L Hgb 9.3 L Hct 28.7 L MCHC RDW 18.5 H Lymph % (Auto) [place] % (Auto) 12.7 H Lymph # (Auto) [place] # (Auto) 1.1 H Seg Neutrophils % Seg Neuts % (Manual) Lymphocytes % (Manual) Monocytes % (Manual) Nucleated RBC % Seg Neutrophils # Seg Neutrophils # Man Lymphocytes # (Manual) Monocytes # (Manual) PT INR D-Dimer ABG pH POC ABG pCO2 POC ABG pO2 ABG pO2 ABG HCO3 ABG Base Excess ABG Hemoglobin ABG Oxyhemoglobin ABG Sodium ABG Potassium ABG Chloride ABG Glucose Carboxyhemoglobin Sodium Potassium Chloride Carbon Dioxide BUN Creatinine Glucose POC Glucose Lactic Acid Calcium Phosphorus Ferritin Total Bilirubin Direct Bilirubin AST ALT Lactate Dehydrogenase Total Creatine Kinase Troponin T Total Protein Albumin Triglycerides Arterial Blood Glucose Arterial Blood Ionized Calcium Urine pH Urine Creatinine Salicylates Acetaminophen Coronavirus (PCR)
[2020-09-28] MEDS: INSULIN GLARGINE 100 UNITS/ML SUB-Q SCH (12:15)
--- NOTE | 2020-09-28 15:26 | Progress Note ---
Assessment and Plan Impression: * Nonoliguric RYAN secondary to ATN * Severe hyperkalemia - resolved * COVID 19 PNA * s/p OOH cardiac arrest * Acute hypoxic respiratory failure * Seizure activity * Anemia * Hypernatremia Plan: * Patient is s/p emergent HD - 09/08 * Continue MWF for now, due today, creatinine continues to uptrend off HD indicating minimal renal recovery and need for ongoing HD, creatinine 4.4->4.7 off HD, creatinine 4.7->3.8 with HD * Does remain non-oliguric however, ~700cc urine output over past 24 hours * Check labs daily * Strict I/O * Will continue to monitor for renal recovery * Keep MAP > 65 * Vent management per CCM * Steroids per primary team/ID * Dose medications for renal function * Avoid potential nephrotoxins * Prognosis is guarded Subjective Date of service: 09/28/20 Principal diagnosis: Abnormal LFTs, s/p cardiac arrest, acute kidney injury with ATN Interval history: On CPAP via T-piece, no acute issues noted Reviewed chart extensively including primary and specialist team notes Objective - Exam Narrative Exam: Direct examination deferred to avoid PPE overuse in COVID-19 pandemic. Seen through ICU window, ventilated on trach. - Vital Signs Vital signs: Vital Signs - 12hr 09/28/20 09/28/20 09/28/20 03:30 03:43 03:45 Temperature 97.8 F Pulse Rate 63 63 Pulse Rate [ From Monitor] Respiratory 28 H 28 H Rate Blood Pressure 125/60 115/62 O2 Sat by Pulse 100 100 Oximetry O2 Sat by Pulse Oximetry [ Assessment] 09/28/20 09/28/20 09/28/20 04:00 04:15 04:31 Temperature Pulse Rate 64 62 66 Pulse Rate [ 63 From Monitor] Respiratory 28 H 29 H 28 H Rate Blood Pressure 122/65 120/65 125/60 O2 Sat by Pulse 100 100 100 Oximetry O2 Sat by Pulse Oximetry [ Assessment] 09/28/20 09/28/20 09/28/20 04:36 04:45 05:00 Temperature Pulse Rate 65 66 63 Pulse Rate [ From Monitor] Respiratory 23 29 H Rate Blood Pressure 125/60 125/63 125/63 O2 Sat by Pulse 100 100 100 Oximetry O2 Sat by Pulse 100 Oximetry [ Assessment] 09/28/20 09/28/20 09/28/20 05:15 05:31 05:45 Temperature Pulse Rate 63 62 62 Pulse Rate [ From Monitor] Respiratory 28 H 31 H 28 H Rate Blood Pressure 123/67 125/61 123/60 O2 Sat by Pulse 100 100 100 Oximetry O2 Sat by Pulse Oximetry [ Assessment] 09/28/20 09/28/20 09/28/20 06:00 06:15 06:27 Temperature Pulse Rate 63 64 63 Pulse Rate [ From Monitor] Respiratory 29 H 27 H Rate Blood Pressure 122/61 127/61 127/61 O2 Sat by Pulse 100 100 Oximetry O2 Sat by Pulse Oximetry [ Assessment] 09/28/20 09/28/20 09/28/20 06:31 06:45 07:00 Temperature 97.5 F L Pulse Rate 63 62 64 Pulse Rate [ From Monitor] Respiratory 27 H 20 20 Rate Blood Pressure 119/59 118/62 119/61 O2 Sat by Pulse 100 100 100 Oximetry O2 Sat by Pulse Oximetry [ Assessment] 09/28/20 09/28/20 09/28/20 07:15 07:30 07:45 Temperature Pulse Rate 63 64 62 Pulse Rate [ From Monitor] Respiratory 28 H 21 38 H Rate Blood Pressure 128/69 136/70 126/65 O2 Sat by Pulse 100 100 Oximetry O2 Sat by Pulse Oximetry [ Assessment] 09/28/20 09/28/20 09/28/20 07:47 07:57 07:58 Temperature Pulse Rate 62 Pulse Rate [ 63 From Monitor] Respiratory 27 H Rate Blood Pressure O2 Sat by Pulse 100 100 Oximetry O2 Sat by Pulse 98 Oximetry [ Assessment] 09/28/20 09/28/20 09/28/20 08:00 08:15 08:31 Temperature Pulse Rate 62 64 61 Pulse Rate [ From Monitor] Respiratory 36 H 34 H 37 H Rate Blood Pressure 137/65 134/65 136/65 O2 Sat by Pulse 100 100 100 Oximetry O2 Sat by Pulse Oximetry [ Assessment] 09/28/20 09/28/20 09/28/20 08:45 09:00 09:15 Temperature Pulse Rate 61 61 62 Pulse Rate [ From Monitor] Respiratory 38 H 36 H 36 H Rate Blood Pressure 129/64 134/69 136/71 O2 Sat by Pulse 100 100 100 Oximetry O2 Sat by Pulse Oximetry [ Assessment] 09/28/20 09/28/20 09/28/20 09:30 09:45 10:01 Temperature Pulse Rate 61 61 62 Pulse Rate [ From Monitor] Respiratory 35 H 36 H 13 Rate Blood Pressure 136/66 132/67 142/66 O2 Sat by Pulse 100 100 100 Oximetry O2 Sat by Pulse Oximetry [ Assessment] 09/28/20 09/28/20 09/28/20 10:15 10:31 10:45 Temperature Pulse Rate 62 62 60 Pulse Rate [ From Monitor] Respiratory 37 H 38 H 36 H Rate Blood Pressure 148/71 139/69 146/74 O2 Sat by Pulse 100 Oximetry O2 Sat by Pulse Oximetry [ Assessment] 09/28/20 09/28/20 09/28/20 11:01 11:15 11:30 Temperature Pulse Rate 59 L 60 58 L Pulse Rate [ From Monitor] Respiratory 36 H 36 H 35 H Rate Blood Pressure 148/69 141/72 138/72 O2 Sat by Pulse 100 100 100 Oximetry O2 Sat by Pulse Oximetry [ Assessment] 09/28/20 09/28/20 09/28/20 11:45 11:54 11:57 Temperature 97.4 F L Pulse Rate 59 L Pulse Rate [ From Monitor] Respiratory 34 H Rate Blood Pressure 139/66 O2 Sat by Pulse 100 Oximetry O2 Sat by Pulse Oximetry [ Assessment] 09/28/20 09/28/20 09/28/20 12:00 12:15 12:31 Temperature Pulse Rate 59 L 59 L 60 Pulse Rate [ 63 From Monitor] Respiratory 36 H 36 H 35 H Rate Blood Pressure 140/71 141/69 135/68 O2 Sat by Pulse 100 100 100 Oximetry O2 Sat by Pulse Oximetry [ Assessment] 09/28/20 09/28/20 09/28/20 12:45 13:01 13:15 Temperature Pulse Rate 59 L 61 63 Pulse Rate [ From Monitor] Respiratory 36 H 34 H 36 H Rate Blood Pressure 140/68 136/67 136/70 O2 Sat by Pulse 100 100 100 Oximetry O2 Sat by Pulse Oximetry [ Assessment] 09/28/20 09/28/20 09/28/20 13:30 13:45 14:01 Temperature Pulse Rate 60 60 61 Pulse Rate [ From Monitor] Respiratory 33 H 35 H 34 H Rate Blood Pressure 136/70 143/69 134/65 O2 Sat by Pulse 100 100 100 Oximetry O2 Sat by Pulse Oximetry [ Assessment] 09/28/20 14:15 Temperature Pulse Rate 61 Pulse Rate [ From Monitor] Respiratory 33 H Rate Blood Pressure 138/70 O2 Sat by Pulse 100 Oximetry O2 Sat by Pulse Oximetry [ Assessment] - Lab 09/28/20 07:02 09/28/20 07:02 Most recent lab results ABG pH 7.442 (7.320-7.450) 09/14/20 03:54 ABG pCO2 33.4 mm Hg 09/11/20 05:40 ABG pO2 112.1 mm Hg (80.0-90.0) H 09/11/20 05:40 ABG HCO3 28.1 mmol/L (20.0-26.0) H 09/11/20 05:40 ABG O2 Saturation 98.4 % (95.0-99.0) 09/11/20 05:40 Calcium 9.1 mg/dL (8.4-10.2) 09/28/20 07:02 Phosphorus 8.00 mg/dL (2.5-4.5) H 09/08/20 12:02 Magnesium 1.80 mg/dL (1.7-2.3) 09/08/20 12:02 Urine Creatinine 182.4 mg/dL (0.1-20.0) H 09/08/20 Unknown Urine Sodium 40 mmol/L 09/08/20 Unknown Medications & Allergies - Medications Allergies/Adverse Reactions: Allergies No Known Allergies Allergy (Verified 09/21/20 21:00) Verified with , no known drug allergies. Home Medications: Home Medications Medication Instructions Recorded Confirmed Last Taken Type Albuterol Sulfate 60 mcg IH PRN 09/11/20 09/11/20 Unknown History Cholecalciferol (Vitamin D3) 25 tab PO DAILY 09/11/20 09/11/20 Unknown History Cozaar 25 tab PO DAILY 09/11/20 09/11/20 Unknown History HumaLOG 14 unit SQ AC 09/11/20 09/11/20 Unknown History Hydralazine HCl 50 tab PO TID 09/11/20 09/11/20 Unknown History Isosorbide Dinitrate 30 mg PO DAILY 09/11/20 09/11/20 Unknown History Lantus VIAL 54 units SQ HS 09/11/20 09/11/20 Unknown History Lasix 20 tab PO DAILY 09/11/20 09/11/20 Unknown History Nifedipine 30 tab PO DAILY 09/11/20 09/11/20 Unknown History Active Medications: Generic Name Dose Route Start Last Admin Trade Name Freq PRN Reason Stop Dose Admin Acetaminophen 400 mg 09/10/20 20:50 09/14/20 23:38 Acetaminophen 325 Mg/10.15 Ml Oral Liqd Unit Dose PO 400 mg Q4HR PRN Administration Non Cardiac Pain or Temp>100.5 Lipase/Protease/Amylase 1 each 09/09/20 09:40 Lipase 10,500/Protease 25,000/Amylase 43,750 (Units) Dr Geovany BYRNETLAURA PRN PRN For Clogged Feeding Tube Hydralazine HCl 50 mg 09/23/20 14:00 09/28/20 06:27 Hydralazine 25 Mg Tab PO 50 mg Q8HR TAYLOR Administration Hydrophilic Ointment 1 applic 09/07/20 13:08 Lip Therapy Vaseline TP Q2HR PRN Dry Lips Sodium Chloride 100 mls @ 999 mls/hr 09/09/20 13:36 Nacl 0.9% IV JAYJAY PRN Hypotension Insulin Glargine 15 units 09/28/20 11:00 09/28/20 12:15 Insulin Glargine 100 Units/Ml SUB-Q 15 units DAILY TAYLOR Administration Insulin Human Lispro 0 unit 09/12/20 12:00 09/28/20 12:11 Insulin Lispro 100 Unit/Ml SUB-Q 4 unit Q6HR TAYLOR Administration Protocol Lansoprazole 30 mg 09/11/20 11:00 09/28/20 09:49 Lansoprazole 30 Mg Solutab FEEDTUBE 30 mg BID TAYLOR Administration Levetiracetam 1,500 mg 09/28/20 10:00 09/28/20 09:49 Levetiracetam 500 Mg/5 Ml Oral Liqd PO 1,500 mg BID TAYLOR Administration Lorazepam 2 mg 09/08/20 00:14 09/14/20 13:36 Lorazepam 2 Mg/Ml Vial IV 2 mg Q4H PRN Administration Seizures Multi-Ingred Cream/Lotion/Oil/Oint 1 applic 09/07/20 13:08 09/20/20 10:50 Mineral Oil/Petrolatum, White Ophth Oint 3.5 Gm OU 1 applic Q4HR PRN Administration Dry Eye(s) Multivitamins 5 ml 09/09/20 12:00 09/28/20 09:48 Multivitamins 5 Ml Oral Liquid PO 5 ml QDAY TAYLOR Administration Ondansetron HCl 4 mg 09/07/20 17:55 09/19/20 04:00 Ondansetron 4 Mg/2 Ml Inj IV 4 mg Q8H PRN Administration Nausea And Vomiting Senna/Docusate Sodium 2 tab 09/20/20 11:00 Sennosides/Docusate Sodium 8.6/50 Mg Tab PO BID PRN Laxative Effect Simple Syrup 15 ml 09/09/20 09:40 09/17/20 17:43 Simple Syrup 15 Ml FEEDTUBE 15 ml PRN PRN Administration Hypoglycemia Simple Syrup 30 ml 09/09/20 09:40 Simple Syrup 15 Ml FEEDTUBE PRN PRN Hypoglycemia Sodium Bicarbonate 325 mg 09/09/20 09:40 Sodium Bicarbonate 325 Mg Tab FEEDTUBE PRN PRN For Clogged Feeding Tube Sodium Chloride 10 ml 09/07/20 22:00 09/28/20 09:26 Sodium Chloride 0.9% 10 Ml Flush Syringe IV 10 ml BID TAYLOR Administration Sodium Chloride 10 ml 09/07/20 17:55 Sodium Chloride 0.9% 10 Ml Flush Syringe IV PRN PRN LINE FLUSH Valproic Acid 1,000 mg 09/28/20 10:00 09/28/20 09:49 Valproic Acid 250 Mg/5 Ml Oral Liqd FEEDTUBE 1,000 mg BID TAYLOR Administration
[2020-09-29] MEDS: INSULIN LISPRO 100 UNIT/ML SUB-Q SCH ×5 (00:55→23:33)
[2020-09-29 05:43] LABS: Basophils % (Auto) 0.2 % (0.0-1.8); Eosinophils # (Auto) 0.1 K/mm3 (0.0-0.4); Eosinophils % (Auto) 0.7 % (0.0-4.3); Hematocrit 27.7 % (35.5-45.6); Lymphocytes # (Auto) 1.4 K/mm3 (1.2-5.4); Mean Corpuscular HGB Conc 33 % (32-34); Mean Corpuscular Volume 86 fl (84-94); Monocytes # (Auto) 1.5 K/mm3 (0.0-0.8); Monocytes % (Auto) 13.8 % (0.0-7.3); Platelet Count 187 K/mm3 (140-440); Red Blood Count 3.23 M/mm3 (3.65-5.03); Red Cell Distribution Width 18.3 % (13.2-15.2)
[2020-09-29 06:00] LABS: Calcium 9.6 mg/dL (8.4-10.2)
[2020-09-29] MEDS: hydrALAZINE 25 MG TAB PO SCH ×3 (06:18→22:00)
--- NOTE | 2020-09-29 09:27 | Progress Note ---
Assessment and Plan Assessment and plan: S/p cardiopulmonary arrest (out of hospital) Toxic metabolic encephalopathy +/-anoxic injury Acute hypoxic respiratory failure Nonoliguric acute kidney injury secondary to ATN. Patient status post emergent hemodialysis 09/08. Seizure disorder Hyperkalemia Hypernatremia COVID-19 pneumonia Sepsis Transaminitis Morbid obesity. 09/15/2020. MRI brain for further evaluation. Continue AEDs of valproic acid and Keppra. Continue hemodialysis per nephrology recommendations. Overall prognosis remains guarded and poor. 09/16/2020. ID recommends continue to monitor patient off of antibiotics. Fever most likely of central etiology. Patient with questionable seizures versus myoclonus from anoxic brain injury. Patient unable to undergo MRI due to body habitus. Continue AEDs per neurology recommendations. Inflammatory markers elevated. Patient was recently hospitalized for COVID-19 pneumonia [facility] being [facility]. Patient not a candidate for remdesivir due to hepatic and renal failure. Viral hepatitis panel negative. Overall prognosis extremely poor. 09/17/2020. Fevers have resolved over the past 48 hours. Continue to monitor off antibiotics per ID recommendations. Patient with questionable seizures versus myoclonus from anoxic brain injury. Patient unable to undergo MRI due to body habitus. EEG is nonspecific but given CT of head findings consistent with anoxic encephalopathy, brain injury. Continue AEDs per neurology recommendations. Inflammatory markers elevated. Patient was recently hospitalized for COVID-19 pneumonia at the [facility] to being hospitalized [facility]. Patient not a candidate for remdesivir due to hepatic and renal failure. Viral hepatitis panel negative. Patient is s/p emergent HD on Friday (hyperK) and Friday - 09/08. Patient also S/p HD 09/15. Continue hemodialysis per nephrology recommendations. Patient currently on AC/PRVC mode ventilation with rate of 30, tidal volume 475, FiO2 30% and PEEP of 6. As stated in neuro note, overall prognosis is very poor. 09/18/2020. Fevers have resolved over the past 72 hours. Continue to monitor off antibiotics per ID recommendations. Leukocytosis persistent for the past 4 days. Patient with questionable seizures/myoclonus from anoxic brain injury. Patient unable to undergo MRI due to body habitus. EEG is nonspecific but given CT of head findings consistent with anoxic encephalopathy, brain injury. Continue AEDs per neurology recommendations. Inflammatory markers elevated. Patient was recently hospitalized for COVID-19 pneumonia [facility]. Patient not a candidate for remdesivir due to hepatic and renal failure. Viral hepatitis panel negative. Patient currently on AC/PRVC mode ventilation with rate of 30, tidal volume 475, FiO2 30% and PEEP of 6. Overall prognosis remains guarded/poor. 09/19/2020 Fevers have resolved over the past 4 days. Continue to monitor off antibiotics per ID recommendations. Leukocytosis persistent for the past 4 days. Patient with questionable seizures/myoclonus from anoxic brain injury. Patient unable to undergo MRI due to body habitus. EEG is nonspecific but given CT of head findings consistent with anoxic encephalopathy, brain injury. Continue AEDs per neurology recommendations. Inflammatory markers elevated. Patient was recently hospitalized for COVID-19 pneumonia [facility] being [facility]. Patient not a candidate for remdesivir due to hepatic and renal failure. Viral hepatitis panel negative. Patient currently on AC/PRVC mode ventilation with rate of 30, tidal volume 475, FiO2 30% and PEEP of 6. Overall prognosis remains guarded/poor. 09/20/2020 -Surgery consulted for PEG and trach, will continue to follow. 09/21/2020; patient will have PEG and trach by Dr. hayes today. Prognosis is poor. Continue with current management. Supervisor Statement Clerks is following for vent management. 09/22/2020; patient had PEG and trach yesterday. 09/23/2020; continue PEG Tube Feeding. 09/24/2020; continue PEG tube feeding, patient is on Keppra, lorazepam and phenyt oin per neurology recommendation. Patient is on hemodialysis and nephrology is following. Management of mechanical ventilation for CCM. 09/25/2020. Continue PEG tube feeding, patient is on Keppra, lorazepam and phenytoin per neurology recommendation. Patient is on hemodialysis and nephrology is following. Management of mechanical ventilation for CCM. Continue PSV/CPAP 07/16. Continue tracheostomy care, secretion control and airway management. 09/26/2020. Patient has tolerated PSV for approximately 48 hours. I discussed with pulmonary possibility of T-piece today. Continue tracheostomy care, secretion control and airway management. If patient tolerates T-piece trials, patient will be transferred to the floor. Continue AEDs of Keppra and phenytoin as well as Ativan as needed per neurology recommendations. Continue hemodialysis per nephrology. Continue TF with aspiration precautions. 09/27/2020. Patient continues to tolerate PSV 12/6 at 30% FiO2. T-piece trials per pulmonary. Continue tracheostomy care, secretion control and airway management. Continue AEDs of Keppra and phenytoin as well as Ativan as needed per neurology recommendations. Continue hemodialysis per nephrology. Continue TF with aspiration precautions. 09/28/2020. Patient for T-piece trials per pulmonary. Continue hemodialysis per nephrology. Continue tracheostomy care, secretion control and airway management. Continue AEDs of Keppra and phenytoin as well as Ativan as needed per neurology recommendations. Continue TF with aspiration precautions. 09/29/2020, continue T-piece trials per pulmonary. Continue hemodialysis per nephrology. Continue strict I/O's and labs daily. Monitor for renal recovery. The high probability of a clinically significant, sudden or life threatening deterioration of the [cardiac, respiratory and neurological] system(s) required my full and direct attention, intervention and personal management. The aggregate critical care time was [31] minutes. This time is in addition to time spent performing reported procedures but includes the following: [x] Data Review and interpretation [x] Patient assessment and monitoring of vital signs [x] Documentation [x] Medication orders and management History Interval history: 65 y/o male with out of hospital cardiac arrest, acute hypoxic respiratory failure and COVID-19 infection. Hospitalist Physical - Constitutional Vitals: Temp Pulse Resp BP Pulse Ox 98.0 F 77 33 H 111/69 99 09/29/20 08:15 09/29/20 09:15 09/29/20 09:15 09/29/20 09:15 09/29/20 09:15 General appearance: Present: other (On mechanical ventilation) - EENT Eyes: Present: PERRL, EOM intact ENT: hearing intact, clear oral mucosa, dentition normal - Neck Neck: Present: supple, normal ROM - Respiratory Respiratory effort: normal Respiratory: bilateral: CTA - Cardiovascular Rhythm: regular Heart Sounds: Present: S1 & S2. Absent: gallop, rub - Extremities Extremities: no ischemia, No edema, Full ROM - Abdominal General gastrointestinal: soft, non-tender, non-distended, normal bowel sounds - Integumentary Integumentary: Present: clear, warm, dry - Neurologic Neurologic: CNII-XII intact, moves all extremities HEART Score - HEART Score Troponin: Troponin T 0.076 ng/mL (0.00-0.029) H 09/07/20 14:00 Results - Labs CBC & Chem 7: 09/29/20 05:20 09/29/20 05:20 Labs: Laboratory Last Values WBC 10.7 K/mm3 (4.5-11.0) 09/29/20 05:20 RBC 3.23 M/mm3 (3.65-5.03) L 09/29/20 05:20 Hgb 9.0 gm/dl (11.8-15.2) L 09/29/20 05:20 Hct 27.7 % (35.5-45.6) L 09/29/20 05:20 MCV 86 fl (84-94) 09/29/20 05:20 MCH 28 pg (28-32) 09/29/20 05:20 MCHC 33 % (32-34) 09/29/20 05:20 RDW 18.3 % (13.2-15.2) H 09/29/20 05:20 Plt Count 187 K/mm3 (140-440) 09/29/20 05:20 Lymph % (Auto) 13.0 % (13.4-35.0) L 09/29/20 05:20 Falls % (Auto) 13.8 % (0.0-7.3) H 09/29/20 05:20 Eos % (Auto) 0.7 % (0.0-4.3) 09/29/20 05:20 Baso % (Auto) 0.2 % (0.0-1.8) 09/29/20 05:20 Lymph # (Auto) 1.4 K/mm3 (1.2-5.4) 09/29/20 05:20 Falls # (Auto) 1.5 K/mm3 (0.0-0.8) H 09/29/20 05:20 Eos # (Auto) 0.1 K/mm3 (0.0-0.4) 09/29/20 05:20 Baso # (Auto) 0.0 K/mm3 (0.0-0.1) 09/29/20 05:20 Add Manual Diff Complete 09/19/20 05:13 Total Counted 100 09/19/20 05:13 Seg Neutrophils % 72.3 % (40.0-70.0) H 09/29/20 05:20 Seg Neuts % (Manual) 87.0 % (40.0-70.0) H 09/19/20 05:13 Band Neutrophils % 1.0 % 09/19/20 05:13 Lymphocytes % (Manual) 5.0 % (13.4-35.0) L 09/19/20 05:13 Monocytes % (Manual) 7.0 % (0.0-7.3) 09/19/20 05:13 Eosinophils % (Manual) 2.0 % (0.0-4.3) 09/07/20 14:00 Metamyelocytes % 2.0 % 09/08/20 Unknown Nucleated RBC % Not Reportable 09/19/20 05:13 Seg Neutrophils # 7.7 K/mm3 (1.8-7.7) 09/29/20 05:20 Seg Neutrophils # Man 19.8 K/mm3 (1.8-7.7) H 09/19/20 05:13 Band Neutrophils # 0.2 K/mm3 09/19/20 05:13 Lymphocytes # (Manual) 1.1 K/mm3 (1.2-5.4) L 09/19/20 05:13 Abs React Lymphs (Man) 0.0 K/mm3 09/19/20 05:13 Monocytes # (Manual) 1.6 K/mm3 (0.0-0.8) H 09/19/20 05:13 Eosinophils # (Manual) 0.0 K/mm3 (0.0-0.4) 09/19/20 05:13 Basophils # (Manual) 0.0 K/mm3 (0.0-0.1) 09/19/20 05:13 Metamyelocytes # 0.0 K/mm3 09/19/20 05:13 Myelocytes # 0.0 K/mm3 09/19/20 05:13 Promyelocytes # 0.0 K/mm3 09/19/20 05:13 Blast Cells # 0.0 K/mm3 09/19/20 05:13 WBC Morphology Not Reportable 09/19/20 05:13 Hypersegmented Neuts Not Reportable 09/19/20 05:13 Hyposegmented Neuts Not Reportable 09/19/20 05:13 Hypogranular Neuts Not Reportable 09/19/20 05:13 Smudge Cells Not Reportable 09/19/20 05:13 Toxic Granulation Not Reportable 09/19/20 05:13 Toxic Vacuolation Not Reportable 09/19/20 05:13 Dohle Bodies Not Reportable 09/19/20 05:13 Pelger-Huet Anomaly Not Reportable 09/19/20 05:13 Justus Rods Not Reportable 09/19/20 05:13 Platelet Estimate Consistent w auto 09/19/20 05:13 Clumped Platelets Not Reportable 09/19/20 05:13 Plt Clumps, EDTA Not Reportable 09/19/20 05:13 Large Platelets Not Reportable 09/19/20 05:13 Giant Platelets Not Reportable 09/19/20 05:13 Platelet Satelliting Not Reportable 09/19/20 05:13 Plt Morphology Comment Not Reportable 09/19/20 05:13 RBC Morphology Not Reportable 09/19/20 05:13 Dimorphic RBCs Not Reportable 09/19/20 05:13 Polychromasia Not Reportable 09/19/20 05:13 Hypochromasia Not Reportable 09/19/20 05:13 Poikilocytosis Not Reportable 09/19/20 05:13 Anisocytosis 1+ 09/19/20 05:13 Microcytosis Not Reportable 09/19/20 05:13 Macrocytosis Not Reportable 09/19/20 05:13 Spherocytes Not Reportable 09/19/20 05:13 Pappenheimer Bodies Not Reportable 09/19/20 05:13 Sickle Cells Not Reportable 09/19/20 05:13 Target Cells Not Reportable 09/19/20 05:13 Tear Drop Cells Not Reportable 09/19/20 05:13 Ovalocytes Not Reportable 09/19/20 05:13 Helmet Cells Not Reportable 09/19/20 05:13 [place] Bodies Not Reportable 09/19/20 05:13 [place] Rings Not Reportable 09/19/20 05:13 Manjit Cells Not Reportable 09/19/20 05:13 Bite Cells Not Reportable 09/19/20 05:13 Crenated Cell Not Reportable 09/19/20 05:13 Elliptocytes Not Reportable 09/19/20 05:13 Acanthocytes (Spur) Not Reportable 09/19/20 05:13 Rouleaux Not Reportable 09/19/20 05:13 Hemoglobin C Crystals Not Reportable 09/19/20 05:13 Schistocytes Not Reportable 09/19/20 05:13 Malaria parasites Not Reportable 09/19/20 05:13 [place] Bodies Not Reportable 09/19/20 05:13 Hem Pathologist Commnt No 09/19/20 05:13 PT 16.1 Sec. (12.2-14.9) H 09/12/20 04:00 INR 1.31 (0.87-1.13) H 09/12/20 04:00 APTT 32.4 Sec. (24.2-36.6) 09/09/20 10:00 D-Dimer 8315.85 ng/mlDDU (0-234) H 09/07/20 14:00 ABG pH 7.442 (7.320-7.450) 09/14/20 03:54 POC ABG pCO2 42.3 mmHg (32.0-48.0) 09/14/20 03:54 ABG pCO2 33.4 mm Hg 09/11/20 05:40 POC ABG pO2 71.1 mmHg (83-108) L 09/14/20 03:54 ABG pO2 112.1 mm Hg (80.0-90.0) H 09/11/20 05:40 POC ABG HCO3 28.2 09/14/20 03:54 ABG HCO3 28.1 mmol/L (20.0-26.0) H 09/11/20 05:40 ABG O2 Saturation 98.4 % (95.0-99.0) 09/11/20 05:40 ABG O2 Content 11.6 (0.0-44) 09/11/20 05:40 POC ABG Base Excess 3.7 09/14/20 03:54 ABG Base Excess 5.4 mmol/L (-2.0-3.0) H 09/11/20 05:40 ABG Hemoglobin 10.3 (12.0-17.5) L 09/14/20 03:54 ABG Oxyhemoglobin 93.2 (94-98) L 09/13/20 04:47 ABG Carboxyhemoglobin 1.2 % (0.0-5.0) 09/11/20 05:40 ABG Methemoglobin 0.3 (0.0-1.5) 09/13/20 04:47 ABG Sodium 135.2 mmol/L (136.0-145.0) L 09/14/20 03:54 ABG Potassium 3.8 mmol/L (3.40-4.50) 09/14/20 03:54 ABG Chloride 98.0 mmol/L (98-107) 09/14/20 03:54 ABG Glucose 281 mg/dL (65-95) H 09/14/20 03:54 Oxyhemoglobin 96.8 % (95.0-99.0) 09/11/20 05:40 Carboxyhemoglobin 0.4 (0.5-1.5) L 09/13/20 04:47 FiO2 30 09/14/20 03:54 Sodium 137 mmol/L (137-145) 09/29/20 05:20 Potassium 3.8 mmol/L (3.6-5.0) 09/29/20 05:20 Chloride 99.4 mmol/L (98-107) 09/29/20 05:20 Carbon Dioxide 27 mmol/L (22-30) 09/29/20 05:20 Anion Gap 14 mmol/L 09/29/20 05:20 BUN 47 mg/dL (9-20) H 09/29/20 05:20 Creatinine 4.2 mg/dL (0.8-1.3) H 09/29/20 05:20 Estimated GFR 17 ml/min 09/29/20 05:20 BUN/Creatinine Ratio 11 % 09/29/20 05:20 Glucose 289 mg/dL (75-100) H 09/29/20 05:20 POC Glucose 237 mg/dL (70-105) H 09/28/20 17:44 Lactic Acid 2.90 mmol/L (0.7-2.0) H* 09/17/20 13:52 Calcium 9.6 mg/dL (8.4-10.2) 09/29/20 05:20 Phosphorus 8.00 mg/dL (2.5-4.5) H 09/08/20 12:02 Magnesium 1.80 mg/dL (1.7-2.3) 09/08/20 12:02 Ferritin > 2000.0 ng/mL (30.0-300.0) H 09/07/20 14:00 Total Bilirubin 0.50 mg/dL (0.1-1.2) 09/25/20 05:18 Direct Bilirubin 0.5 mg/dL (0-0.2) H 09/08/20 05:00 Indirect Bilirubin 0.5 mg/dL 09/08/20 05:00 AST 55 units/L (5-40) H 09/25/20 05:18 ALT 74 units/L (7-56) H 09/25/20 05:18 Alkaline Phosphatase 81 units/L (35-129) 09/25/20 05:18 Ammonia 50.0 umol/L (25-60) 09/07/20 14:00 Lactate Dehydrogenase 882 units/L (91-180) H 09/07/20 14:00 Total Creatine Kinase 477 units/L (55-170) H 09/07/20 14:00 Troponin T 0.076 ng/mL (0.00-0.029) H 09/07/20 14:00 C-Reactive Protein 1.10 mg/dL (0.00-1.30) 09/07/20 14:00 Total Protein 7.0 g/dL (6.3-8.2) 09/25/20 05:18 Albumin 2.6 g/dL (3.9-5) L 09/25/20 05:18 Albumin/Globulin Ratio 0.6 % 09/25/20 05:18 Triglycerides 220 mg/dL (2-149) H 09/12/20 Unknown Procalcitonin 1.52 ng/mL (<0.15) 09/17/20 13:02 TSH 2.290 mlU/mL (0.270-4.200) 09/07/20 14:00 Arterial Blood Glucose 281 mg/dL (65-95) H 09/14/20 03:54 Arterial Blood Ionized Calcium 4.6 mg/dL (4.6-5.3) 09/14/20 03:54 Urine Color Straw (Yellow) 09/07/20 13:08 Urine Turbidity Slightly-cloudy (Clear) 09/07/20 13:08 Urine pH 8.0 (5.0-7.0) H 09/07/20 13:08 Ur Specific [place] 1.006 (1.003-1.030) 09/07/20 13:08 Urine Protein 100 mg/dl mg/dL (Negative) 09/07/20 13:08 Urine Glucose (UA) Neg mg/dL (Negative) 09/07/20 13:08 Urine Ketones Neg mg/dL (Negative) 09/07/20 13:08 Urine Blood Neg (Negative) 09/07/20 13:08 Urine Nitrite Neg (Negative) 09/07/20 13:08 Urine Bilirubin Neg (Negative) 09/07/20 13:08 Urine Urobilinogen < 2.0 mg/dL (<2.0) 09/07/20 13:08 Ur Leukocyte Esterase Neg (Negative) 09/07/20 13:08 Urine WBC (Auto) 4.0 /HPF (0.0-6.0) 09/07/20 13:08 Urine RBC (Auto) 18.0 /HPF (0.0-6.0) 09/07/20 13:08 U Epithel Cells (Auto) 1.0 /HPF (0-13.0) 09/07/20 13:08 Urine Mucus Few /HPF 09/07/20 13:08 Urine Sperm 3+ /HPF ([employer]) 09/07/20 13:08 Urine Creatinine 182.4 mg/dL (0.1-20.0) H 09/08/20 Unknown Urine Sodium 40 mmol/L 09/08/20 Unknown Salicylates < 0.3 mg/dL (2.8-20.0) L 09/07/20 14:00 Acetaminophen 5.0 ug/mL (10.0-30.0) L 09/07/20 14:00 Plasma/Serum Alcohol < 0.01 % (0-0.07) 09/07/20 14:00 Coronavirus (PCR) Negative (Negative) 09/19/20 Unknown Hepatitis A IgM Ab Non-reactive (NonReactive) 09/07/20 14:00 Hep Bs Antigen Non-reactive (Negative) 09/07/20 14:00 Hep B Core IgM Ab Non-reactive (NonReactive) 09/07/20 14:00 Hepatitis C Antibody Non-reactive (NonReactive) 09/07/20 14:00 HIV 1&2 Antibody Rapid Non react (Non React) 09/07/20 14:34 HIV P24 Antigen Non react (Non React) 09/07/20 14:34 Blood Type O POSITIVE 09/09/20 10:00 Antibody Screen Negative 09/07/20 14:00 Mae/IV: Voiding Method Condom Catheter IV Catheter Type [Right Triple Lumen Cath Femoral] IV Catheter Type [Left Peripheral IV Antecubital] IV Catheter Type [Left Hand] Peripheral IV IV Catheter Type [Right Peripheral IV Antecubital] Active Medications - Current Medications Current Medications: Generic Name Dose Route Start Last Admin Trade Name Freq PRN Reason Stop Dose Admin Acetaminophen 400 mg 09/10/20 20:50 09/14/20 23:38 Acetaminophen 325 Mg/10.15 Ml Oral Liqd Unit Dose PO 400 mg Q4HR PRN Administration Non Cardiac Pain or Temp>100.5 Lipase/Protease/Amylase 1 each 09/09/20 09:40 Lipase 10,500/Protease 25,000/Amylase 43,750 (Units) Dr Armenta FEEDTUBE PRN PRN For Clogged Feeding Tube Hydralazine HCl 50 mg 09/23/20 14:00 09/29/20 06:18 Hydralazine 25 Mg Tab PO Not Given Q8HR TAYLOR Hydrophilic Ointment 1 applic 09/07/20 13:08 Lip Therapy Vaseline TP Q2HR PRN Dry Lips Sodium Chloride 100 mls @ 999 mls/hr 09/09/20 13:36 Nacl 0.9% IV JAYAJY PRN Hypotension Insulin Glargine 15 units 09/28/20 11:00 09/28/20 12:15 Insulin Glargine 100 Units/Ml SUB-Q 15 units DAILY TAYLOR Administration Insulin Human Lispro 0 unit 09/12/20 12:00 09/29/20 06:55 Insulin Lispro 100 Unit/Ml SUB-Q 6 unit Q6HR TAYLOR Administration Protocol Lansoprazole 30 mg 09/11/20 11:00 09/28/20 21:09 Lansoprazole 30 Mg Solutab FEEDTUBE 30 mg BID TAYLOR Administration Levetiracetam 1,500 mg 09/28/20 10:00 09/28/20 21:09 Levetiracetam 500 Mg/5 Ml Oral Liqd PO 1,500 mg BID TAYLOR Administration Lorazepam 2 mg 09/08/20 00:14 09/14/20 13:36 Lorazepam 2 Mg/Ml Vial IV 2 mg Q4H PRN Administration Seizures Multi-Ingred Cream/Lotion/Oil/Oint 1 applic 09/07/20 13:08 09/20/20 10:50 Mineral Oil/Petrolatum, White Ophth Oint 3.5 Gm OU 1 applic Q4HR PRN Administration Dry Eye(s) Multivitamins 5 ml 09/09/20 12:00 09/28/20 09:48 Multivitamins 5 Ml Oral Liquid PO 5 ml QDAY TAYLOR Administration Ondansetron HCl 4 mg 09/07/20 17:55 09/19/20 04:00 Ondansetron 4 Mg/2 Ml Inj IV 4 mg Q8H PRN Administration Nausea And Vomiting Senna/Docusate Sodium 2 tab 09/20/20 11:00 Sennosides/Docusate Sodium 8.6/50 Mg Tab PO BID PRN Laxative Effect Simple Syrup 15 ml 09/09/20 09:40 09/17/20 17:43 Simple Syrup 15 Ml FEEDTUBE 15 ml PRN PRN Administration Hypoglycemia Simple Syrup 30 ml 09/09/20 09:40 Simple Syrup 15 Ml FEEDTUBE PRN PRN Hypoglycemia Sodium Bicarbonate 325 mg 09/09/20 09:40 Sodium Bicarbonate 325 Mg Tab FEEDTUBE PRN PRN For Clogged Feeding Tube Sodium Chloride 10 ml 09/07/20 22:00 09/28/20 09:26 Sodium Chloride 0.9% 10 Ml Flush Syringe IV 10 ml BID TAYLOR Administration Sodium Chloride 10 ml 09/07/20 17:55 Sodium Chloride 0.9% 10 Ml Flush Syringe IV PRN PRN LINE FLUSH Valproic Acid 1,000 mg 09/28/20 10:00 09/28/20 21:09 Valproic Acid 250 Mg/5 Ml Oral Liqd FEEDTUBE 1,000 mg BID TAYLOR Administration Nutrition/Malnutrition Assess - Dietary Evaluation Nutrition/Malnutrition Findings: Nutrition Notes Start: 09/08/20 12:01 Freq: Status: Active Protocol: Document 09/27/20 12:14 LP (Rec: 09/27/20 12:36 LP [email or web address]) Nutrition Notes Initial or Follow up Reassessment Current Diagnosis Acute Kidney Injury, Respiratory Failure Other Pertinent Diagnosis on HD, cardiac arrest, COVID ( +), metabolic encephalopathy, pneu Current Diet Nepro 1.8 at 45 mL/hr (goal rate) Labs/Tests BUN 54 Cr 4.7 BG 218 Pertinent Medications Reviewed Height 6 ft Weight 150.6 kg [place] Body Weight (kg) 80.90 BMI 45.0 Weight Status Morbidly Obese Subjective/Other Information Pt now tolerating TF at goal rate. Percent of energy/protein needs met: 99%/43% Burn Absent Trauma Absent Current % PO Negligible Minimum of two criteria No physical signs of malnutrition #2 Nutrition Diagnosis Increased nutrient needs ( specify in comment below) Comments: Protein Etiology ESRD As Evidenced by Signs and Symptoms Pt on HD and not meeting protein needs #1 Nutrition Diagnosis Inadequate oral intake Diagnosis Progress(for reassessment Continues documentation) Is patient on ventilator? Yes Is Patient Ambulatory and/or Out of Bed No REE-([place]-confined to bed) 2805.132 Kcal/Kg value to use for calculation 13 Approximate Energy Requirements Using 1958 kcal/Kg Calculation Used for Recommendations Kcal/kg Additional Notes PRO needs: >202g (> 2.5g/kg IBW 80.9kg) Fluid needs are 1000-1500ml Nutrition Intervention Change Diet Order: TF Nutrition Support: Nepro at 45ml/hr Flush 200ml q4h for hypernatremia. 120ml q4h once resolved Kcal 1,944 Protein (gm) 87 Fluid (mL) 785 Goal #1 Meet kcal and protein needs as best as possible via TF Anticipated Discharge Needs: TF Follow-Up By: 09/29/20 Additional Comments Follow for stable TF
--- NOTE | 2020-09-29 09:43 | Progress Note ---
Assessment and Plan Impression: * Nonoliguric RYAN secondary to ATN * Severe hyperkalemia - resolved * COVID 19 PNA * s/p OOH cardiac arrest * Acute hypoxic respiratory failure * Seizure activity * Anemia * Hypernatremia Plan: * Patient is s/p emergent HD - 09/08 * Continue MWF for now, due today, creatinine continues to uptrend off HD indicating minimal renal recovery and need for ongoing HD, creatinine 3.8->4.2 off HD * Does remain non-oliguric however, ~400cc urine output over past 24 hours * Check labs daily * Strict I/O * Will continue to monitor for renal recovery * Keep MAP > 65 * Vent management per CCM * Steroids per primary team/ID * Dose medications for renal function * Avoid potential nephrotoxins * Prognosis is guarded Subjective Date of service: 09/29/20 Principal diagnosis: Abnormal LFTs, s/p cardiac arrest, acute kidney injury with ATN Interval history: On CPAP via T-piece, no acute issues noted Reviewed chart extensively including primary and specialist team notes On HD this AM, tolerating Objective - Exam Narrative Exam: Direct examination deferred to avoid PPE overuse in COVID-19 pandemic. Seen through ICU window, ventilated on trach. - Vital Signs Vital signs: Vital Signs - 12hr 09/28/20 09/28/20 09/28/20 21:45 22:00 22:15 Temperature Pulse Rate 67 68 67 Pulse Rate [ From Monitor] Respiratory 54 H 50 H 44 H Rate Blood Pressure 117/60 126/63 130/62 O2 Sat by Pulse 92 94 91 Oximetry O2 Sat by Pulse Oximetry [ Anterior Throughout] O2 Sat by Pulse Oximetry [ Assessment] 09/28/20 09/28/20 09/28/20 22:30 22:45 23:00 Temperature Pulse Rate 66 66 68 Pulse Rate [ From Monitor] Respiratory 51 H 38 H 52 H Rate Blood Pressure 131/65 128/62 129/67 O2 Sat by Pulse 93 94 94 Oximetry O2 Sat by Pulse Oximetry [ Anterior Throughout] O2 Sat by Pulse Oximetry [ Assessment] 09/28/20 09/28/20 09/28/20 23:15 23:31 23:45 Temperature Pulse Rate 67 70 68 Pulse Rate [ From Monitor] Respiratory 47 H 47 H 41 H Rate Blood Pressure 123/60 120/68 131/68 O2 Sat by Pulse 96 99 95 Oximetry O2 Sat by Pulse Oximetry [ Anterior Throughout] O2 Sat by Pulse Oximetry [ Assessment] 09/28/20 09/29/20 09/29/20 23:55 00:00 00:15 Temperature 97.5 F L Pulse Rate 68 69 70 Pulse Rate [ 69 From Monitor] Respiratory 41 H 44 H 51 H Rate Blood Pressure 131/68 126/68 129/70 O2 Sat by Pulse 98 94 97 Oximetry O2 Sat by Pulse Oximetry [ Anterior Throughout] O2 Sat by Pulse 98 Oximetry [ Assessment] 09/29/20 09/29/20 09/29/20 00:30 00:45 01:00 Temperature Pulse Rate 68 70 69 Pulse Rate [ From Monitor] Respiratory 48 H 46 H 50 H Rate Blood Pressure 123/67 126/64 126/64 O2 Sat by Pulse 97 91 89 Oximetry O2 Sat by Pulse Oximetry [ Anterior Throughout] O2 Sat by Pulse Oximetry [ Assessment] 09/29/20 09/29/20 09/29/20 01:07 01:15 01:30 Temperature Pulse Rate 71 71 70 Pulse Rate [ From Monitor] Respiratory 30 H 30 H Rate Blood Pressure 126/64 81/44 83/50 O2 Sat by Pulse 96 97 Oximetry O2 Sat by Pulse Oximetry [ Anterior Throughout] O2 Sat by Pulse Oximetry [ Assessment] 09/29/20 09/29/20 09/29/20 01:45 02:00 02:15 Temperature Pulse Rate 69 69 70 Pulse Rate [ From Monitor] Respiratory 30 H 30 H 30 H Rate Blood Pressure 88/51 91/53 87/53 O2 Sat by Pulse 96 97 98 Oximetry O2 Sat by Pulse Oximetry [ Anterior Throughout] O2 Sat by Pulse Oximetry [ Assessment] 09/29/20 09/29/20 09/29/20 02:30 02:45 03:00 Temperature Pulse Rate 70 69 70 Pulse Rate [ From Monitor] Respiratory 30 H 30 H 30 H Rate Blood Pressure 95/52 96/52 98/54 O2 Sat by Pulse 97 99 100 Oximetry O2 Sat by Pulse Oximetry [ Anterior Throughout] O2 Sat by Pulse Oximetry [ Assessment] 09/29/20 09/29/20 09/29/20 03:15 03:30 03:37 Temperature 97.6 F Pulse Rate 71 71 Pulse Rate [ From Monitor] Respiratory 30 H 30 H Rate Blood Pressure 94/54 90/50 O2 Sat by Pulse 100 100 Oximetry O2 Sat by Pulse Oximetry [ Anterior Throughout] O2 Sat by Pulse Oximetry [ Assessment] 09/29/20 09/29/20 09/29/20 03:45 04:00 04:15 Temperature Pulse Rate 71 70 72 Pulse Rate [ 73 From Monitor] Respiratory 30 H 30 H 30 H Rate Blood Pressure 92/52 98/54 90/52 O2 Sat by Pulse 100 100 100 Oximetry O2 Sat by Pulse Oximetry [ Anterior Throughout] O2 Sat by Pulse Oximetry [ Assessment] 09/29/20 09/29/20 09/29/20 04:30 04:45 05:00 Temperature Pulse Rate 73 72 73 Pulse Rate [ From Monitor] Respiratory 30 H 30 H 30 H Rate Blood Pressure 92/52 90/54 86/51 O2 Sat by Pulse 100 100 Oximetry O2 Sat by Pulse Oximetry [ Anterior Throughout] O2 Sat by Pulse Oximetry [ Assessment] 09/29/20 09/29/20 09/29/20 05:07 05:15 05:30 Temperature Pulse Rate 72 74 73 Pulse Rate [ From Monitor] Respiratory 30 H 30 H Rate Blood Pressure 86/51 88/55 91/53 O2 Sat by Pulse 99 99 98 Oximetry O2 Sat by Pulse Oximetry [ Anterior Throughout] O2 Sat by Pulse Oximetry [ Assessment] 09/29/20 09/29/20 09/29/20 05:45 06:00 06:15 Temperature Pulse Rate 73 81 Pulse Rate [ From Monitor] Respiratory 30 H 30 H Rate Blood Pressure 89/52 95/55 79/45 O2 Sat by Pulse 99 96 98 Oximetry O2 Sat by Pulse Oximetry [ Anterior Throughout] O2 Sat by Pulse Oximetry [ Assessment] 09/29/20 09/29/20 09/29/20 06:30 06:45 07:00 Temperature Pulse Rate Pulse Rate [ From Monitor] Respiratory Rate Blood Pressure 83/49 84/53 93/53 O2 Sat by Pulse 98 99 98 Oximetry O2 Sat by Pulse Oximetry [ Anterior Throughout] O2 Sat by Pulse Oximetry [ Assessment] 09/29/20 09/29/20 09/29/20 07:15 07:30 07:45 Temperature Pulse Rate 76 76 76 Pulse Rate [ From Monitor] Respiratory 30 H 30 H 30 H Rate Blood Pressure 94/56 83/51 92/54 O2 Sat by Pulse 99 100 100 Oximetry O2 Sat by Pulse Oximetry [ Anterior Throughout] O2 Sat by Pulse Oximetry [ Assessment] 09/29/20 09/29/20 09/29/20 08:00 08:15 08:30 Temperature 98.0 F Pulse Rate 76 76 76 Pulse Rate [ From Monitor] Respiratory 30 H 30 H 30 H Rate Blood Pressure 94/54 87/55 93/55 O2 Sat by Pulse 100 100 99 Oximetry O2 Sat by Pulse 100 Oximetry [ Anterior Throughout] O2 Sat by Pulse Oximetry [ Assessment] 09/29/20 09/29/20 09/29/20 08:45 09:00 09:15 Temperature Pulse Rate 75 73 78 Pulse Rate [ From Monitor] Respiratory 30 H 30 H 23 Rate Blood Pressure 95/55 95/57 111/69 O2 Sat by Pulse 99 100 98 Oximetry O2 Sat by Pulse Oximetry [ Anterior Throughout] O2 Sat by Pulse Oximetry [ Assessment] 09/29/20 09:30 Temperature Pulse Rate 79 Pulse Rate [ From Monitor] Respiratory Rate Blood Pressure 105/59 O2 Sat by Pulse Oximetry O2 Sat by Pulse Oximetry [ Anterior Throughout] O2 Sat by Pulse Oximetry [ Assessment] Seen on HD: QB 350ml/min via CVC, BP soft but stable off pressors, no UF - Lab 09/29/20 05:20 09/29/20 05:20 Most recent lab results ABG pH 7.442 (7.320-7.450) 09/14/20 03:54 ABG pCO2 33.4 mm Hg 09/11/20 05:40 ABG pO2 112.1 mm Hg (80.0-90.0) H 09/11/20 05:40 ABG HCO3 28.1 mmol/L (20.0-26.0) H 09/11/20 05:40 ABG O2 Saturation 98.4 % (95.0-99.0) 09/11/20 05:40 Calcium 9.6 mg/dL (8.4-10.2) 09/29/20 05:20 Phosphorus 8.00 mg/dL (2.5-4.5) H 09/08/20 12:02 Magnesium 1.80 mg/dL (1.7-2.3) 09/08/20 12:02 Urine Creatinine 182.4 mg/dL (0.1-20.0) H 09/08/20 Unknown Urine Sodium 40 mmol/L 09/08/20 Unknown Medications & Allergies - Medications Allergies/Adverse Reactions: Allergies No Known Allergies Allergy (Verified 09/21/20 21:00) Verified with , no known drug allergies. Home Medications: Home Medications Medication Instructions Recorded Confirmed Last Taken Type Albuterol Sulfate 60 mcg IH PRN 09/11/20 09/11/20 Unknown History Cholecalciferol (Vitamin D3) 25 tab PO DAILY 09/11/20 09/11/20 Unknown History Cozaar 25 tab PO DAILY 09/11/20 09/11/20 Unknown History HumaLOG 14 unit SQ AC 09/11/20 09/11/20 Unknown History Hydralazine HCl 50 tab PO TID 09/11/20 09/11/20 Unknown History Isosorbide Dinitrate 30 mg PO DAILY 09/11/20 09/11/20 Unknown History Lantus VIAL 54 units SQ HS 09/11/20 09/11/20 Unknown History Lasix 20 tab PO DAILY 09/11/20 09/11/20 Unknown History Nifedipine 30 tab PO DAILY 09/11/20 09/11/20 Unknown History Active Medications: Generic Name Dose Route Start Last Admin Trade Name Freq PRN Reason Stop Dose Admin Acetaminophen 400 mg 09/10/20 20:50 09/14/20 23:38 Acetaminophen 325 Mg/10.15 Ml Oral Liqd Unit Dose PO 400 mg Q4HR PRN Administration Non Cardiac Pain or Temp>100.5 Lipase/Protease/Amylase 1 each 09/09/20 09:40 Lipase 10,500/Protease 25,000/Amylase 43,750 (Units) Dr Armenta FEEDTUBE PRN PRN For Clogged Feeding Tube Hydralazine HCl 50 mg 09/23/20 14:00 09/29/20 06:18 Hydralazine 25 Mg Tab PO Not Given Q8HR TAYLOR Hydrophilic Ointment 1 applic 09/07/20 13:08 Lip Therapy Vaseline TP Q2HR PRN Dry Lips Sodium Chloride 100 mls @ 999 mls/hr 09/09/20 13:36 Nacl 0.9% IV JAYJAY PRN Hypotension Insulin Glargine 15 units 09/28/20 11:00 09/28/20 12:15 Insulin Glargine 100 Units/Ml SUB-Q 15 units DAILY TAYLOR Administration Insulin Human Lispro 0 unit 09/12/20 12:00 09/29/20 06:55 Insulin Lispro 100 Unit/Ml SUB-Q 6 unit Q6HR TAYLOR Administration Protocol Lansoprazole 30 mg 09/11/20 11:00 09/28/20 21:09 Lansoprazole 30 Mg Solutab FEEDTUBE 30 mg BID TAYLOR Administration Levetiracetam 1,500 mg 09/28/20 10:00 09/28/20 21:09 Levetiracetam 500 Mg/5 Ml Oral Liqd PO 1,500 mg BID TAYLOR Administration Lorazepam 2 mg 09/08/20 00:14 09/14/20 13:36 Lorazepam 2 Mg/Ml Vial IV 2 mg Q4H PRN Administration Seizures Multi-Ingred Cream/Lotion/Oil/Oint 1 applic 09/07/20 13:08 09/20/20 10:50 Mineral Oil/Petrolatum, White Ophth Oint 3.5 Gm OU 1 applic Q4HR PRN Administration Dry Eye(s) Multivitamins 5 ml 09/09/20 12:00 09/28/20 09:48 Multivitamins 5 Ml Oral Liquid PO 5 ml QDAY TAYLOR Administration Ondansetron HCl 4 mg 09/07/20 17:55 09/19/20 04:00 Ondansetron 4 Mg/2 Ml Inj IV 4 mg Q8H PRN Administration Nausea And Vomiting Senna/Docusate Sodium 2 tab 09/20/20 11:00 Sennosides/Docusate Sodium 8.6/50 Mg Tab PO BID PRN Laxative Effect Simple Syrup 15 ml 09/09/20 09:40 09/17/20 17:43 Simple Syrup 15 Ml FEEDTUBE 15 ml PRN PRN Administration Hypoglycemia Simple Syrup 30 ml 09/09/20 09:40 Simple Syrup 15 Ml FEEDTUBE PRN PRN Hypoglycemia Sodium Bicarbonate 325 mg 09/09/20 09:40 Sodium Bicarbonate 325 Mg Tab FEEDTUBE PRN PRN For Clogged Feeding Tube Sodium Chloride 10 ml 09/07/20 22:00 09/28/20 09:26 Sodium Chloride 0.9% 10 Ml Flush Syringe IV 10 ml BID TAYLOR Administration Sodium Chloride 10 ml 09/07/20 17:55 Sodium Chloride 0.9% 10 Ml Flush Syringe IV PRN PRN LINE FLUSH Valproic Acid 1,000 mg 09/28/20 10:00 02/18/21 21:09 Valproic Acid 250 Mg/5 Ml Oral Liqd FEEDTUBE 1,000 mg BID TAYLOR Administration
[2020-09-29] MEDS: VALPROIC ACID 250 MG/5 ML ORAL LIQD FEEDTUBE SCH ×2 (10:14→21:50)
[2020-09-29] MEDS: INSULIN GLARGINE 100 UNITS/ML SUB-Q SCH (10:15)
[2020-09-29] MEDS: MULTIVITAMINS 5 ML ORAL LIQUID PO SCH (10:15)
[2020-09-29] MEDS: levETIRAcetam 500 MG/5 ML ORAL LIQD PO SCH ×2 (10:15→21:50)
[2020-09-29] MEDS: LANSOPRAZOLE 30 MG SOLUTAB FEEDTUBE SCH ×2 (10:15→21:51)
--- NOTE | 2020-09-29 11:08 | Progress Note ---
Assessment and Plan 65 y/o male with out of hospital cardiac arrest now sedated on ativan for possible seizures. 09/29/20: Please continue daily T-piece trials as tolerated over the weekend. Goals is to do 24 hours of T-piece. Once done stable for transfer out of the unit. Hold BP meds for now. MOnitor for fever cure or changes clinically other than change in blood pressure. Increased BID lantus to 20. May need more but can reassess tomorrow. My partner is covering this weekend. 09/28/20: T-piece again today. Will place official order to let patient stay on T-piece and to call if changes occur. HD MWF per renal. Poor prognosis for cognitive recovery. 09/27/20: T-piece trial again today. Will attempt to go 24 hours. Still needs HD per renal. This will be a barrier to discharge. CM knows and will discuss with administration. 09/26/20: Will do T-piece today. If tolerates the next 24 hours will move out of ICU. : PSV for the next 24 hours if tolerates. Restart feeds today at 10. Continue reglan. If tomorrow, same issues. Will change feeds, obtain GI consult. Continue antiepileptic therapy. 09/24/20: Continue Daily PSV, maybe ready for 24 hour trial. Antiepleptic therapy. Hold feeds today, suggest GI consult. Will discuss with Dietary on round tomorrow. 09/23/20: Daily PSV trials multiple times a day if needed. Antiepileptic therapy. Resume tube feeds today. 09/22/20: PSV trial today as tolerated and every day from this day forward. NO sedation. Continue antiepileptic therapy. HD per renal. Still having issues with feeds. Will contact to see if he has any food allergies. Prognosis still remains very poor. WIll start some promotility agents as well. 09/21/20: Trach and peg today. Continue with vent weaning. Hopeful we can wean him off the vent once trached. [facility] Prognosis remains very poor for recovery of functional state. 09/20/20: Placed consult to surgery now that COVID is negative. However, patient is morbidly obese and his surgery will likely be a complicated one especially with peg placement. Await surgery eval and recs. HD per renal. Continue daily PSV trials, mental status precludes extubation traditionally but maybe able to wean off vent with stable airway such as trach. [facility] denied transfer and placement requests at this time based on notes. Prognosis is very poor, but after speaking with neurology and neurosurgery, patient wishes to continue aggressive measures. 09/19/20: Ordered repeat COVID as surgery will not do trach and peg until negative status. Continue supportive measures. Prognosis is very very poor but family wishes to proceed with [facility] care. 09/18/20: Unable to fit in MRI. Repeat CT showed improvement in edema but no clinical response is seen with this. Will continue Antiepileptic therapy. If wishes to proceed, will need trach and peg. Not sure if he would be candidate for PEG given his size but will ask surgery. Will need repeat COVID test prior to surgery. 09/15/20: Order MRI brain without contrast. Per surgery this will help to add more in regards to prognosis. Continue Valproic Acid and Keppra for seizure therapy. HD going now per renal. Overall prognosis remains guarded to poor. Please reach out to over the weekend to update her as I am not rounding th is weekend, ,my partner will be covering. 09/14/20: Will load with valproic acid and then start to wean Diprovan. Spoke with today, very tearful on the phone. Explained to that Neurosurgery would come and eval denise but not a candidate for the other therapies she asked about since his edema is related to anoxic injury. Very very poor prognosis. 09/13/20: Per current neuro available, the neurologist from yesterday will call today. EEG is nonspecific but given CT of head findings consistent with anoxic encephalopathy, brain injury. As stated in neuro note, overall prognosis is very poor. Will continue to wean down diprovan to see if patient's seizures have been controlled with current Keppra dosing. Will call once she has spoken to neuro to get her thoughts on the next steps. (trach and peg, vs hospice as well as code status). Very very poor prognosis. 09/12/20: Long discussion with this am. Given recent head CT results, prognosis for full functional recovery is very POOR and neurology agrees. They will see in consult today. I have spoken to about AND and she is going to discuss with the family. The neurologist has stated they will reach out to the today. I am going to attempt to wean the ativan off and then start to wean the diprovan as long as no seizure activity is seen. Patient is now bradycardic, likely secondary to neuro state. I hope that he is not about to herniate. Patient is also like in Neurogenic DI given large urine out put volume. Very very poor prognosis. Continue supportive measures. 09/11/20: Will increase Keppra to 1500 BID given patient size. Continue Diprovan drip. Getting EEG today. HD per renal. Needs neurology consult however if patient is in status, needs to be transferred to an institution that can provide continuous EEG monitoring. Overll prognosis is very guarded to poor. Have not spoken to yet today. 09/10/20: Loaded with keppra and will start on Keppra BID. Needs EEG on therapy as well as OFF. If patient is in status, needs transfer to a location with continuous EEG capabilities. FiO2 has been weaned back down and is now at 60%, sats in the high 90's. HD per renal. Coags improving. Overall prognosis is guarded to poor. Spoke with on phone yesterday. Consult neurology tomorrow as not available on the weekend. Suggest checking for antibodies as h e may be a candidate for convalsescent plasma. Per the , he was diagnosed with COVID on and spent 6 days inpatient at the [facility]. Remains positive now with multisystem organ failure. Explained to that outcome may not be good but need more time to assess. 09/09/20: EEG ordered on yesterday but not done. If done not read. Continue diprovan for now until EEG can be done or interpreted. State Coags but given his oozing from his vascath, will give Vitamin K and FFP. Patient is covid positive so agree with steroids. Not a candidate for remdesivir. Need to check for antibodies, may be a candidate for convalescent plasma. HD per renal. Given improvement in pH will stop bicarb drip. Feed patient. 1. Stop sedation 2. EEG 3. Needs neuro consult. 4. Art line placement 5. Stat repeat of labs, if renal function is truly that bad, will need renal consult. 6. Follow up COVID testing 7. Likely needs echo 8. Will place on bicarb drip. CCT 31 minutes. Subjective Date of service: 09/29/20 Principal diagnosis: Abnormal LFTs, s/p cardiac arrest, acute kidney injury with ATN Interval history: Had hypotension last night that led to desats and tachypnea. Placed back on vent. Tried PSV this am but failed at lower pressures. Currently on HD now. Mental state is unchanged. Continues to tolerate feeds. Objective Vital Signs - 12hr 09/28/20 09/28/20 09/28/20 23:15 23:31 23:45 Temperature Pulse Rate 67 70 68 Pulse Rate [ From Monitor] Respiratory 47 H 47 H 41 H Rate Blood Pressure 123/60 120/68 131/68 O2 Sat by Pulse 96 99 95 Oximetry O2 Sat by Pulse Oximetry [ Anterior Throughout] O2 Sat by Pulse Oximetry [ Assessment] 09/28/20 09/29/20 09/29/20 23:55 00:00 00:15 Temperature 97.5 F L Pulse Rate 68 69 70 Pulse Rate [ 69 From Monitor] Respiratory 41 H 44 H 51 H Rate Blood Pressure 131/68 126/68 129/70 O2 Sat by Pulse 98 94 97 Oximetry O2 Sat by Pulse Oximetry [ Anterior Throughout] O2 Sat by Pulse 98 Oximetry [ Assessment] 09/29/20 09/29/20 09/29/20 00:30 00:45 01:00 Temperature Pulse Rate 68 70 69 Pulse Rate [ From Monitor] Respiratory 48 H 46 H 50 H Rate Blood Pressure 123/67 126/64 126/64 O2 Sat by Pulse 97 91 89 Oximetry O2 Sat by Pulse Oximetry [ Anterior Throughout] O2 Sat by Pulse Oximetry [ Assessment] 09/29/20 09/29/20 09/29/20 01:07 01:15 01:30 Temperature Pulse Rate 71 71 70 Pulse Rate [ From Monitor] Respiratory 30 H 30 H Rate Blood Pressure 126/64 81/44 83/50 O2 Sat by Pulse 96 97 Oximetry O2 Sat by Pulse Oximetry [ Anterior Throughout] O2 Sat by Pulse Oximetry [ Assessment] 09/29/20 09/29/20 09/29/20 01:45 02:00 02:15 Temperature Pulse Rate 69 69 70 Pulse Rate [ From Monitor] Respiratory 30 H 30 H 30 H Rate Blood Pressure 88/51 91/53 87/53 O2 Sat by Pulse 96 97 98 Oximetry O2 Sat by Pulse Oximetry [ Anterior Throughout] O2 Sat by Pulse Oximetry [ Assessment] 09/29/20 09/29/20 09/29/20 02:30 02:45 03:00 Temperature Pulse Rate 70 69 70 Pulse Rate [ From Monitor] Respiratory 30 H 30 H 30 H Rate Blood Pressure 95/52 96/52 98/54 O2 Sat by Pulse 97 99 100 Oximetry O2 Sat by Pulse Oximetry [ Anterior Throughout] O2 Sat by Pulse Oximetry [ Assessment] 09/29/20 09/29/20 09/29/20 03:15 03:30 03:37 Temperature 97.6 F Pulse Rate 71 71 Pulse Rate [ From Monitor] Respiratory 30 H 30 H Rate Blood Pressure 94/54 90/50 O2 Sat by Pulse 100 100 Oximetry O2 Sat by Pulse Oximetry [ Anterior Throughout] O2 Sat by Pulse Oximetry [ Assessment] 09/29/20 09/29/20 09/29/20 03:45 04:00 04:15 Temperature Pulse Rate 71 70 72 Pulse Rate [ 73 From Monitor] Respiratory 30 H 30 H 30 H Rate Blood Pressure 92/52 98/54 90/52 O2 Sat by Pulse 100 100 100 Oximetry O2 Sat by Pulse Oximetry [ Anterior Throughout] O2 Sat by Pulse Oximetry [ Assessment] 09/29/20 09/29/20 09/29/20 04:30 04:45 05:00 Temperature Pulse Rate 73 72 73 Pulse Rate [ From Monitor] Respiratory 30 H 30 H 30 H Rate Blood Pressure 92/52 90/54 86/51 O2 Sat by Pulse 100 100 Oximetry O2 Sat by Pulse Oximetry [ Anterior Throughout] O2 Sat by Pulse Oximetry [ Assessment] 09/29/20 09/29/20 09/29/20 05:07 05:15 05:30 Temperature Pulse Rate 72 74 73 Pulse Rate [ From Monitor] Respiratory 30 H 30 H Rate Blood Pressure 86/51 88/55 91/53 O2 Sat by Pulse 99 99 98 Oximetry O2 Sat by Pulse Oximetry [ Anterior Throughout] O2 Sat by Pulse Oximetry [ Assessment] 09/29/20 09/29/20 09/29/20 05:45 06:00 06:15 Temperature Pulse Rate 73 81 Pulse Rate [ From Monitor] Respiratory 30 H 30 H Rate Blood Pressure 89/52 95/55 79/45 O2 Sat by Pulse 99 96 98 Oximetry O2 Sat by Pulse Oximetry [ Anterior Throughout] O2 Sat by Pulse Oximetry [ Assessment] 09/29/20 09/29/2021 06:30 06:45 07:00 Temperature Pulse Rate Pulse Rate [ From Monitor] Respiratory Rate Blood Pressure 83/49 84/53 93/53 O2 Sat by Pulse 98 99 98 Oximetry O2 Sat by Pulse Oximetry [ Anterior Throughout] O2 Sat by Pulse Oximetry [ Assessment] 09/29/20 09/29/20 09/29/20 07:15 07:30 07:45 Temperature Pulse Rate 76 76 76 Pulse Rate [ From Monitor] Respiratory 30 H 30 H 30 H Rate Blood Pressure 94/56 83/51 92/54 O2 Sat by Pulse 99 100 100 Oximetry O2 Sat by Pulse Oximetry [ Anterior Throughout] O2 Sat by Pulse Oximetry [ Assessment] 09/29/20 09/29/20 09/29/20 08:00 08:15 08:30 Temperature 98.0 F 98.0 F Pulse Rate 76 76 76 Pulse Rate [ From Monitor] Respiratory 30 H 30 H 30 H Rate Blood Pressure 94/54 87/55 93/55 O2 Sat by Pulse 100 100 99 Oximetry O2 Sat by Pulse 100 Oximetry [ Anterior Throughout] O2 Sat by Pulse Oximetry [ Assessment] 09/29/20 09/29/20 09/29/20 08:45 09:00 09:15 Temperature Pulse Rate 75 73 78 Pulse Rate [ From Monitor] Respiratory 30 H 30 H 23 Rate Blood Pressure 95/55 95/57 111/69 O2 Sat by Pulse 99 100 98 Oximetry O2 Sat by Pulse Oximetry [ Anterior Throughout] O2 Sat by Pulse Oximetry [ Assessment] 09/29/20 09/29/20 09/29/20 09:30 09:45 10:00 Temperature Pulse Rate 79 74 85 Pulse Rate [ From Monitor] Respiratory Rate Blood Pressure 105/59 96/58 96/57 O2 Sat by Pulse Oximetry O2 Sat by Pulse Oximetry [ Anterior Throughout] O2 Sat by Pulse Oximetry [ Assessment] 09/29/20 09/29/20 09/29/20 10:15 10:30 10:45 Temperature Pulse Rate 82 83 83 Pulse Rate [ From Monitor] Respiratory Rate Blood Pressure 88/53 94/54 85/55 O2 Sat by Pulse Oximetry O2 Sat by Pulse Oximetry [ Anterior Throughout] O2 Sat by Pulse Oximetry [ Assessment] Constitutional: comatose, other (morbidly obese) Eyes: non-icteric ENT: other (orally intubated and sedated) Neck: supple Effort: normal Ascultation: Bilateral: diminished breath sounds Percussion: Bilateral: not dull Cardiovascular: other (bradycardic) Gastrointestinal: soft CBC and BMP: 09/29/20 05:20 09/29/20 05:20 ABG, PT/INR, D-dimer: ABG ABG pH 7.442 (7.320-7.450) 09/14/20 03:54 POC ABG pCO2 42.3 mmHg (32.0-48.0) 09/14/20 03:54 ABG pCO2 33.4 mm Hg 09/11/20 05:40 POC ABG pO2 71.1 mmHg (83-108) L 09/14/20 03:54 ABG pO2 112.1 mm Hg (80.0-90.0) H 09/11/20 05:40 POC ABG HCO3 28.2 09/14/20 03:54 ABG O2 Saturation 98.4 % (95.0-99.0) 09/11/20 05:40 PT/INR, D-dimer PT 16.1 Sec. (12.2-14.9) H 09/12/20 04:00 INR 1.31 (0.87-1.13) H 09/12/20 04:00 D-Dimer 8315.85 ng/mlDDU (0-234) H 09/07/20 14:00 Abnormal lab findings: Abnormal Labs 09/07/20 09/07/20 09/07/20 13:08 14:00 14:00 WBC 15.7 H RBC Hgb 10.2 L Hct 32.5 L MCHC 31 L RDW 17.5 H Lymph % (Auto) [place] % (Auto) Lymph # (Auto) [place] # (Auto) Seg Neutrophils % Seg Neuts % (Manual) 72.0 H Lymphocytes % (Manual) Monocytes % (Manual) 8.0 H Nucleated RBC % Seg Neutrophils # Seg Neutrophils # Man 11.3 H Lymphocytes # (Manual) Monocytes # (Manual) 1.3 H PT INR D-Dimer 8315.85 H ABG pH POC ABG pCO2 POC ABG pO2 ABG pO2 ABG HCO3 ABG Base Excess ABG Hemoglobin ABG Oxyhemoglobin ABG Sodium ABG Potassium ABG Chloride ABG Glucose Carboxyhemoglobin Sodium Potassium Chloride Carbon Dioxide BUN Creatinine Glucose POC Glucose Lactic Acid Calcium Phosphorus Ferritin Total Bilirubin Direct Bilirubin AST ALT Lactate Dehydrogenase Total Creatine Kinase Troponin T Total Protein Albumin Triglycerides Arterial Blood Glucose Arterial Blood Ionized Calcium Urine pH 8.0 H Urine Creatinine Salicylates Acetaminophen Coronavirus (PCR) 09/07/20 09/07/20 09/07/20 14:00 14:00 14:00 WBC RBC Hgb Hct MCHC RDW Lymph % (Auto) [place] % (Auto) Lymph # (Auto) [place] # (Auto) Seg Neutrophils % Seg Neuts % (Manual) Lymphocytes % (Manual) Monocytes % (Manual) Nucleated RBC % Seg Neutrophils # Seg Neutrophils # Man Lymphocytes # (Manual) Monocytes # (Manual) PT INR D-Dimer ABG pH POC ABG pCO2 POC ABG pO2 ABG pO2 ABG HCO3 ABG Base Excess ABG Hemoglobin ABG Oxyhemoglobin ABG Sodium ABG Potassium ABG Chloride ABG Glucose Carboxyhemoglobin Sodium Potassium Chloride Carbon Dioxide BUN Creatinine Glucose POC Glucose Lactic Acid 4.30 H* Calcium Phosphorus Ferritin > 2000.0 H Total Bilirubin Direct Bilirubin AST ALT Lactate Dehydrogenase 882 H Total Creatine Kinase 477 H Troponin T 0.076 H Total Protein Albumin Triglycerides Arterial Blood Glucose Arterial Blood Ionized Calcium Urine pH Urine Creatinine Salicylates Acetaminophen Coronavirus (PCR) 09/07/20 09/07/20 09/07/20 14:00 14:00 14:00 WBC RBC Hgb Hct MCHC RDW Lymph % (Auto) [place] % (Auto) Lymph # (Auto) [place] # (Auto) Seg Neutrophils % Seg Neuts % (Manual) Lymphocytes % (Manual) Monocytes % (Manual) Nucleated RBC % Seg Neutrophils # Seg Neutrophils # Man Lymphocytes # (Manual) Monocytes # (Manual) PT INR D-Dimer ABG pH POC ABG pCO2 POC ABG pO2 ABG pO2 ABG HCO3 ABG Base Excess ABG Hemoglobin ABG Oxyhemoglobin ABG Sodium ABG Potassium ABG Chloride ABG Glucose Carboxyhemoglobin Sodium Potassium Chloride Carbon Dioxide BUN Creatinine 1.8 H Glucose POC Glucose Lactic Acid Calcium Phosphorus Ferritin Total Bilirubin Direct Bilirubin AST 310 H ALT 339 H Lactate Dehydrogenase Total Creatine Kinase Troponin T Total Protein Albumin 3.6 L Triglycerides Arterial Blood Glucose Arterial Blood Ionized Calcium Urine pH Urine Creatinine Salicylates < 0.3 L Acetaminophen 5.0 L Coronavirus (PCR) 09/07/20 09/08/20 09/08/20 14:26 04:00 04:17 WBC RBC Hgb Hct MCHC RDW Lymph % (Auto) [place] % (Auto) Lymph # (Auto) [place] # (Auto) Seg Neutrophils % Seg Neuts % (Manual) Lymphocytes % (Manual) Monocytes % (Manual) Nucleated RBC % Seg Neutrophils # Seg Neutrophils # Man Lymphocytes # (Manual) Monocytes # (Manual) PT INR D-Dimer ABG pH 7.037 L 7.095 L POC ABG pCO2 92.4 H 68.0 H POC ABG pO2 130.8 H 43.5 L ABG pO2 ABG HCO3 ABG Base Excess ABG Hemoglobin 11.3 L 10.6 L ABG Oxyhemoglobin 70.8 L ABG Sodium ABG Potassium 7.0 H ABG Chloride 108.0 H ABG Glucose Carboxyhemoglobin 0.3 L Sodium Potassium 8.4 H* D Chloride Carbon Dioxide 17 L D BUN 38 H Creatinine 3.9 H D Glucose POC Glucose Lactic Acid Calcium 7.7 L D Phosphorus Ferritin Total Bilirubin Direct Bilirubin AST ALT Lactate Dehydrogenase Total Creatine Kinase Troponin T Total Protein Albumin Triglycerides Arterial Blood Glucose Arterial Blood Ionized Calcium 4.5 L Urine pH Urine Creatinine Salicylates Acetaminophen Coronavirus (PCR) 09/08/20 09/08/20 09/08/20 05:00 05:25 12:02 WBC RBC Hgb Hct MCHC RDW Lymph % (Auto) [place] % (Auto) Lymph # (Auto) [place] # (Auto) Seg Neutrophils % Seg Neuts % (Manual) Lymphocytes % (Manual) Monocytes % (Manual) Nucleated RBC % Seg Neutrophils # Seg Neutrophils # Man Lymphocytes # (Manual) Monocytes # (Manual) PT INR D-Dimer ABG pH 7.088 L POC ABG pCO2 69.1 H POC ABG pO2 35.2 L ABG pO2 ABG HCO3 ABG Base Excess ABG Hemoglobin 10.9 L ABG Oxyhemoglobin 57.1 L ABG Sodium ABG Potassium 7.0 H ABG Chloride 108.0 H ABG Glucose Carboxyhemoglobin 0.4 L Sodium Potassium 8.1 H* Chloride Carbon Dioxide 17 L BUN 38 H Creatinine 3.7 H Glucose POC Glucose Lactic Acid Calcium 8.0 L Phosphorus 8.00 H Ferritin Total Bilirubin Direct Bilirubin 0.5 H AST 3696 H ALT 3331 H Lactate Dehydrogenase Total Creatine Kinase Troponin T Total Protein Albumin 3.5 L Triglycerides Arterial Blood Glucose Arterial Blood Ionized Calcium 4.4 L Urine pH Urine Creatinine Salicylates Acetaminophen Coronavirus (PCR) 09/08/20 09/08/20 09/08/20 16:31 22:36 Unknown WBC RBC Hgb Hct MCHC RDW Lymph % (Auto) [place] % (Auto) Lymph # (Auto) [place] # (Auto) Seg Neutrophils % Seg Neuts % (Manual) Lymphocytes % (Manual) Monocytes % (Manual) Nucleated RBC % Seg Neutrophils # Seg Neutrophils # Man Lymphocytes # (Manual) Monocytes # (Manual) PT INR D-Dimer ABG pH POC ABG pCO2 POC ABG pO2 ABG pO2 ABG HCO3 ABG Base Excess ABG Hemoglobin ABG Oxyhemoglobin ABG Sodium ABG Potassium ABG Chloride ABG Glucose Carboxyhemoglobin Sodium Potassium 5.3 H D Chloride Carbon Dioxide BUN Creatinine Glucose POC Glucose 158 H Lactic Acid Calcium Phosphorus Ferritin Total Bilirubin Direct Bilirubin AST ALT Lactate Dehydrogenase Total Creatine Kinase Troponin T Total Protein Albumin Triglycerides Arterial Blood Glucose Arterial Blood Ionized Calcium Urine pH Urine Creatinine Salicylates Acetaminophen Coronavirus (PCR) Positive A 09/08/20 09/08/20 09/08/20 Unknown Unknown Unknown WBC 18.4 H RBC Hgb 10.1 L Hct 32.0 L MCHC RDW 18.2 H Lymph % (Auto) [place] % (Auto) Lymph # (Auto) [place] # (Auto) Seg Neutrophils % Seg Neuts % (Manual) 81.0 H Lymphocytes % (Manual) 2.0 L Monocytes % (Manual) Nucleated RBC % 1.0 H Seg Neutrophils # Seg Neutrophils # Man 14.9 H Lymphocytes # (Manual) 0.4 L Monocytes # (Manual) 1.1 H PT 21.2 H INR 1.83 H D-Dimer ABG pH POC ABG pCO2 POC ABG pO2 ABG pO2 ABG HCO3 ABG Base Excess ABG Hemoglobin ABG Oxyhemoglobin ABG Sodium ABG Potassium ABG Chloride ABG Glucose Carboxyhemoglobin Sodium Potassium Chloride Carbon Dioxide BUN Creatinine Glucose POC Glucose Lactic Acid Calcium Phosphorus Ferritin Total Bilirubin Direct Bilirubin AST ALT Lactate Dehydrogenase Total Creatine Kinase Troponin T Total Protein Albumin Triglycerides Arterial Blood Glucose Arterial Blood Ionized Calcium Urine pH Urine Creatinine 182.4 H Salicylates Acetaminophen Coronavirus (PCR) 09/09/20 09/09/20 09/09/20 03:14 04:20 04:20 WBC 16.3 H RBC 3.12 L Hgb 8.6 L Hct 26.8 L MCHC RDW 18.2 H Lymph % (Auto) 6.3 L [place] % (Auto) 8.8 H Lymph # (Auto) 1.0 L [place] # (Auto) 1.4 H Seg Neutrophils % 84.5 H Seg Neuts % (Manual) Lymphocytes % (Manual) Monocytes % (Manual) Nucleated RBC % Seg Neutrophils # 13.7 H Seg Neutrophils # Man Lymphocytes # (Manual) Monocytes # (Manual) PT INR D-Dimer ABG pH POC ABG pCO2 POC ABG pO2 148.5 H ABG pO2 ABG HCO3 ABG Base Excess ABG Hemoglobin 9.4 L ABG Oxyhemoglobin 98.8 H ABG Sodium 134.8 L ABG Potassium 5.0 H ABG Chloride ABG Glucose 222 H Carboxyhemoglobin 0.1 L Sodium Potassium 5.2 H Chloride Carbon Dioxide BUN 47 H Creatinine 4.3 H Glucose 211 H POC Glucose Lactic Acid Calcium 7.4 L Phosphorus Ferritin [place] 60612 H ALT 6206 H Lactate Dehydrogenase Total Creatine Kinase Troponin T Total Protein 5.6 L Albumin 3.0 L Triglycerides Arterial Blood Glucose 222 H Arterial Blood Ionized Calcium 3.8 L Urine pH Urine Creatinine Salicylates Acetaminophen Coronavirus (PCR) 09/09/20 09/09/20 09/09/20 10:00 12:23 18:22 WBC RBC Hgb Hct MCHC RDW Lymph % (Auto) [place] % (Auto) Lymph # (Auto) [place] # (Auto) Seg Neutrophils % Seg Neuts % (Manual) Lymphocytes % (Manual) Monocytes % (Manual) Nucleated RBC % Seg Neutrophils # Seg Neutrophils # Man Lymphocytes # (Manual) Monocytes # (Manual) PT 21.7 H INR 1.90 H D-Dimer ABG pH POC ABG pCO2 POC ABG pO2 ABG pO2 ABG HCO3 ABG Base Excess ABG Hemoglobin ABG Oxyhemoglobin ABG Sodium ABG Potassium ABG Chloride ABG Glucose Carboxyhemoglobin Sodium Potassium Chloride Carbon Dioxide BUN Creatinine Glucose POC Glucose 216 H 211 H Lactic Acid Calcium Phosphorus Ferritin Total Bilirubin Direct Bilirubin AST ALT Lactate Dehydrogenase Total Creatine Kinase Troponin T Total Protein Albumin Triglycerides Arterial Blood Glucose Arterial Blood Ionized Calcium Urine pH Urine Creatinine Salicylates Acetaminophen Coronavirus (PCR) 09/10/20 09/10/20 09/10/20 04:00 04:05 04:05 WBC 15.0 H RBC 3.06 L Hgb 8.6 L Hct 25.8 L MCHC RDW 18.0 H Lymph % (Auto) [place] % (Auto) Lymph # (Auto) [place] # (Auto) Seg Neutrophils % Seg Neuts % (Manual) 86.0 H Lymphocytes % (Manual) 6.0 L Monocytes % (Manual) 8.0 H Nucleated RBC % Seg Neutrophils # Seg Neutrophils # Man 12.9 H Lymphocytes # (Manual) 0.9 L Monocytes # (Manual) 1.2 H PT 18.4 H INR 1.54 H D-Dimer ABG pH POC ABG pCO2 POC ABG pO2 ABG pO2 ABG HCO3 ABG Base Excess ABG Hemoglobin ABG Oxyhemoglobin ABG Sodium ABG Potassium ABG Chloride ABG Glucose Carboxyhemoglobin Sodium 134 L Potassium Chloride 93.7 L Carbon Dioxide BUN 46 H Creatinine 3.6 H Glucose 275 H POC Glucose Lactic Acid Calcium 7.7 L Phosphorus Ferritin Total Bilirubin 1.30 H Direct Bilirubin AST 5899 H ALT 6440 H Lactate Dehydrogenase Total Creatine Kinase Troponin T Total Protein 5.9 L Albumin 3.3 L Triglycerides Arterial Blood Glucose Arterial Blood Ionized Calcium Urine pH Urine Creatinine Salicylates Acetaminophen Coronavirus (PCR) 09/10/20 09/10/20 09/10/20 04:35 12:06 17:42 WBC RBC Hgb Hct MCHC RDW Lymph % (Auto) [place] % (Auto) Lymph # (Auto) [place] # (Auto) Seg Neutrophils % Seg Neuts % (Manual) Lymphocytes % (Manual) Monocytes % (Manual) Nucleated RBC % Seg Neutrophils # Seg Neutrophils # Man Lymphocytes # (Manual) Monocytes # (Manual) PT INR D-Dimer ABG pH 7.464 H POC ABG pCO2 POC ABG pO2 ABG pO2 ABG HCO3 ABG Base Excess ABG Hemoglobin 9.9 L ABG Oxyhemoglobin ABG Sodium 131.6 L ABG Potassium ABG Chloride 97.0 L ABG Glucose 281 H Carboxyhemoglobin 0.1 L Sodium Potassium Chloride Carbon Dioxide BUN Creatinine Glucose POC Glucose 298 H 340 H Lactic Acid Calcium Phosphorus Ferritin Total Bilirubin Direct Bilirubin AST ALT Lactate Dehydrogenase Total Creatine Kinase Troponin T Total Protein Albumin Triglycerides Arterial Blood Glucose 281 H Arterial Blood Ionized Calcium 3.9 L Urine pH Urine Creatinine Salicylates Acetaminophen Coronavirus (PCR) 09/10/20 09/11/20 09/11/20 23:07 04:44 05:17 WBC RBC Hgb Hct MCHC RDW Lymph % (Auto) [place] % (Auto) Lymph # (Auto) [place] # (Auto) Seg Neutrophils % Seg Neuts % (Manual) Lymphocytes % (Manual) Monocytes % (Manual) Nucleated RBC % Seg Neutrophils # Seg Neutrophils # Man Lymphocytes # (Manual) Monocytes # (Manual) PT 16.9 H INR 1.39 H D-Dimer ABG pH POC ABG pCO2 POC ABG pO2 ABG pO2 ABG HCO3 ABG Base Excess ABG Hemoglobin ABG Oxyhemoglobin ABG Sodium ABG Potassium ABG Chloride ABG Glucose Carboxyhemoglobin Sodium Potassium Chloride Carbon Dioxide BUN Creatinine Glucose POC Glucose 367 H 416 H Lactic Acid Calcium Phosphorus Ferritin Total Bilirubin Direct Bilirubin AST ALT Lactate Dehydrogenase Total Creatine Kinase Troponin T Total Protein Albumin Triglycerides Arterial Blood Glucose Arterial Blood Ionized Calcium Urine pH Urine Creatinine Salicylates Acetaminophen Coronavirus (PCR) 09/11/20 09/11/20 09/11/20 05:40 12:01 17:50 WBC RBC Hgb Hct MCHC RDW Lymph % (Auto) [place] % (Auto) Lymph # (Auto) [place] # (Auto) Seg Neutrophils % Seg Neuts % (Manual) Lymphocytes % (Manual) Monocytes % (Manual) Nucleated RBC % Seg Neutrophils # Seg Neutrophils # Man Lymphocytes # (Manual) Monocytes # (Manual) PT INR D-Dimer ABG pH 7.543 H POC ABG pCO2 POC ABG pO2 ABG pO2 112.1 H ABG HCO3 28.1 H ABG Base Excess 5.4 H ABG Hemoglobin 8.4 L ABG Oxyhemoglobin ABG Sodium ABG Potassium ABG Chloride ABG Glucose Carboxyhemoglobin Sodium Potassium Chloride Carbon Dioxide BUN Creatinine Glucose POC Glucose 418 H 404 H Lactic Acid Calcium Phosphorus Ferritin Total Bilirubin Direct Bilirubin AST ALT Lactate Dehydrogenase Total Creatine Kinase Troponin T Total Protein Albumin Triglycerides Arterial Blood Glucose Arterial Blood Ionized Calcium Urine pH Urine Creatinine Salicylates Acetaminophen Coronavirus (PCR) 09/11/20 09/11/20 09/12/20 23:10 23:43 03:15 WBC RBC Hgb Hct MCHC RDW Lymph % (Auto) [place] % (Auto) Lymph # (Auto) [place] # (Auto) Seg Neutrophils % Seg Neuts % (Manual) Lymphocytes % (Manual) Monocytes % (Manual) Nucleated RBC % Seg Neutrophils # Seg Neutrophils # Man Lymphocytes # (Manual) Monocytes # (Manual) PT INR D-Dimer ABG pH POC ABG pCO2 POC ABG pO2 ABG pO2 ABG HCO3 ABG Base Excess ABG Hemoglobin ABG Oxyhemoglobin ABG Sodium ABG Potassium ABG Chloride ABG Glucose Carboxyhemoglobin Sodium 135 L Potassium Chloride 92.3 L Carbon Dioxide BUN 62 H Creatinine 3.7 H Glucose 406 H POC Glucose 372 H 359 H Lactic Acid Calcium Phosphorus Ferritin Total Bilirubin Direct Bilirubin AST 687 H ALT 3701 H Lactate Dehydrogenase Total Creatine Kinase Troponin T Total Protein 5.8 L Albumin 3.1 L Triglycerides Arterial Blood Glucose Arterial Blood Ionized Calcium Urine pH Urine Creatinine Salicylates Acetaminophen Coronavirus (PCR) 09/12/20 09/12/20 09/12/20 03:18 04:00 04:00 WBC 13.7 H RBC 3.30 L Hgb 9.3 L Hct 27.6 L MCHC RDW 17.5 H Lymph % (Auto) [place] % (Auto) Lymph # (Auto) [place] # (Auto) Seg Neutrophils % Seg Neuts % (Manual) 76.0 H Lymphocytes % (Manual) 11.0 L Monocytes % (Manual) 13.0 H Nucleated RBC % Seg Neutrophils # Seg Neutrophils # Man 10.4 H Lymphocytes # (Manual) Monocytes # (Manual) 1.8 H PT 16.1 H INR 1.31 H D-Dimer ABG pH 7.558 H POC ABG pCO2 POC ABG pO2 74.7 L ABG pO2 ABG HCO3 ABG Base Excess ABG Hemoglobin 9.7 L ABG Oxyhemoglobin ABG Sodium 132.4 L ABG Potassium ABG Chloride 95.0 L ABG Glucose 437 H Carboxyhemoglobin Sodium Potassium Chloride Carbon Dioxide BUN Creatinine Glucose POC Glucose Lactic Acid Calcium Phosphorus Ferritin Total Bilirubin Direct Bilirubin AST ALT Lactate Dehydrogenase Total Creatine Kinase Troponin T Total Protein Albumin Triglycerides Arterial Blood Glucose 437 H Arterial Blood Ionized Calcium 4.3 L Urine pH Urine Creatinine Salicylates Acetaminophen Coronavirus (PCR) 09/12/20 09/12/20 09/12/20 04:21 05:20 06:37 WBC RBC Hgb Hct MCHC RDW Lymph % (Auto) [place] % (Auto) Lymph # (Auto) [place] # (Auto) Seg Neutrophils % Seg Neuts % (Manual) Lymphocytes % (Manual) Monocytes % (Manual) Nucleated RBC % Seg Neutrophils # Seg Neutrophils # Man Lymphocytes # (Manual) Monocytes # (Manual) PT INR D-Dimer ABG pH POC ABG pCO2 POC ABG pO2 ABG pO2 ABG HCO3 ABG Base Excess ABG Hemoglobin ABG Oxyhemoglobin ABG Sodium ABG Potassium ABG Chloride ABG Glucose Carboxyhemoglobin Sodium Potassium Chloride Carbon Dioxide BUN Creatinine Glucose POC Glucose 417 H 397 H 370 H Lactic Acid Calcium Phosphorus Ferritin Total Bilirubin Direct Bilirubin AST ALT Lactate Dehydrogenase Total Creatine Kinase Troponin T Total Protein Albumin Triglycerides Arterial Blood Glucose Arterial Blood Ionized Calcium Urine pH Urine Creatinine Salicylates Acetaminophen Coronavirus (PCR) 09/12/20 09/12/20 09/12/20 11:56 17:14 21:52 WBC RBC Hgb Hct MCHC RDW Lymph % (Auto) [place] % (Auto) Lymph # (Auto) [place] # (Auto) Seg Neutrophils % Seg Neuts % (Manual) Lymphocytes % (Manual) Monocytes % (Manual) Nucleated RBC % Seg Neutrophils # Seg Neutrophils # Man Lymphocytes # (Manual) Monocytes # (Manual) PT INR D-Dimer ABG pH POC ABG pCO2 POC ABG pO2 ABG pO2 ABG HCO3 ABG Base Excess ABG Hemoglobin ABG Oxyhemoglobin ABG Sodium ABG Potassium ABG Chloride ABG Glucose Carboxyhemoglobin Sodium Potassium Chloride Carbon Dioxide BUN Creatinine Glucose POC Glucose 341 H 325 H 285 H Lactic Acid Calcium Phosphorus Ferritin Total Bilirubin Direct Bilirubin AST ALT Lactate Dehydrogenase Total Creatine Kinase Troponin T Total Protein Albumin Triglycerides Arterial Blood Glucose Arterial Blood Ionized Calcium Urine pH Urine Creatinine Salicylates Acetaminophen Coronavirus (PCR) 09/12/20 09/12/20 09/12/20 23:39 Unknown Unknown WBC RBC Hgb Hct MCHC RDW Lymph % (Auto) [place] % (Auto) Lymph # (Auto) [place] # (Auto) Seg Neutrophils % Seg Neuts % (Manual) Lymphocytes % (Manual) Monocytes % (Manual) Nucleated RBC % Seg Neutrophils # Seg Neutrophils # Man Lymphocytes # (Manual) Monocytes # (Manual) PT INR D-Dimer ABG pH POC ABG pCO2 POC ABG pO2 ABG pO2 ABG HCO3 ABG Base Excess ABG Hemoglobin ABG Oxyhemoglobin ABG Sodium ABG Potassium ABG Chloride ABG Glucose Carboxyhemoglobin Sodium 135 L Potassium Chloride 92.2 L Carbon Dioxide BUN 65 H Creatinine 3.5 H Glucose 418 H POC Glucose 338 H Lactic Acid Calcium Phosphorus Ferritin Total Bilirubin Direct Bilirubin AST 553 H ALT 3453 H Lactate Dehydrogenase Total Creatine Kinase Troponin T Total Protein 5.9 L Albumin 3.0 L Triglycerides 220 H Arterial Blood Glucose Arterial Blood Ionized Calcium Urine pH Urine Creatinine Salicylates Acetaminophen Coronavirus (PCR) 09/13/20 09/13/20 09/13/20 04:47 05:24 10:50 WBC RBC Hgb Hct MCHC RDW Lymph % (Auto) [place] % (Auto) Lymph # (Auto) [place] # (Auto) Seg Neutrophils % Seg Neuts % (Manual) Lymphocytes % (Manual) Monocytes % (Manual) Nucleated RBC % Seg Neutrophils # Seg Neutrophils # Man Lymphocytes # (Manual) Monocytes # (Manual) PT INR D-Dimer ABG pH 7.571 H POC ABG pCO2 POC ABG pO2 69.0 L ABG pO2 ABG HCO3 ABG Base Excess ABG Hemoglobin 10.1 L ABG Oxyhemoglobin 93.2 L ABG Sodium 134.0 L ABG Potassium ABG Chloride ABG Glucose 365 H Carboxyhemoglobin 0.4 L Sodium Potassium Chloride 96.6 L Carbon Dioxide 32 H BUN 76 H Creatinine 3.1 H Glucose 395 H POC Glucose 329 H Lactic Acid Calcium Phosphorus Ferritin Total Bilirubin Direct Bilirubin AST ALT Lactate Dehydrogenase Total Creatine Kinase Troponin T Total Protein Albumin Triglycerides Arterial Blood Glucose 365 H Arterial Blood Ionized Calcium Urine pH Urine Creatinine Salicylates Acetaminophen Coronavirus (PCR) 09/13/20 09/13/20 09/13/20 11:39 17:48 23:35 WBC RBC Hgb Hct MCHC RDW Lymph % (Auto) [place] % (Auto) Lymph # (Auto) [place] # (Auto) Seg Neutrophils % Seg Neuts % (Manual) Lymphocytes % (Manual) Monocytes % (Manual) Nucleated RBC % Seg Neutrophils # Seg Neutrophils # Man Lymphocytes # (Manual) Monocytes # (Manual) PT INR D-Dimer ABG pH POC ABG pCO2 POC ABG pO2 ABG pO2 ABG HCO3 ABG Base Excess ABG Hemoglobin ABG Oxyhemoglobin ABG Sodium ABG Potassium ABG Chloride ABG Glucose Carboxyhemoglobin Sodium Potassium Chloride Carbon Dioxide BUN Creatinine Glucose POC Glucose 344 H 286 H 223 H Lactic Acid Calcium Phosphorus Ferritin Total Bilirubin Direct Bilirubin AST ALT Lactate Dehydrogenase Total Creatine Kinase Troponin T Total Protein Albumin Triglycerides Arterial Blood Glucose Arterial Blood Ionized Calcium Urine pH Urine Creatinine Salicylates Acetaminophen Coronavirus (PCR) 09/14/20 09/14/20 09/14/20 03:54 05:34 10:27 WBC RBC Hgb Hct MCHC RDW Lymph % (Auto) [place] % (Auto) Lymph # (Auto) [place] # (Auto) Seg Neutrophils % Seg Neuts % (Manual) Lymphocytes % (Manual) Monocytes % (Manual) Nucleated RBC % Seg Neutrophils # Seg Neutrophils # Man Lymphocytes # (Manual) Monocytes # (Manual) PT INR D-Dimer ABG pH POC ABG pCO2 POC ABG pO2 71.1 L ABG pO2 ABG HCO3 ABG Base Excess ABG Hemoglobin 10.3 L ABG Oxyhemoglobin ABG Sodium 135.2 L ABG Potassium ABG Chloride ABG Glucose 281 H Carboxyhemoglobin Sodium Potassium Chloride 96.6 L Carbon Dioxide BUN 100 H Creatinine 3.9 H Glucose 286 H POC Glucose 252 H Lactic Acid Calcium Phosphorus Ferritin Total Bilirubin Direct Bilirubin AST 145 H ALT 1400 H Lactate Dehydrogenase Total Creatine Kinase Troponin T Total Protein 5.6 L Albumin 2.9 L Triglycerides Arterial Blood Glucose 281 H Arterial Blood Ionized Calcium Urine pH Urine Creatinine Salicylates Acetaminophen Coronavirus (PCR) 09/14/20 09/14/20 09/14/20 11:38 17:52 23:07 WBC RBC Hgb Hct MCHC RDW Lymph % (Auto) [place] % (Auto) Lymph # (Auto) [place] # (Auto) Seg Neutrophils % Seg Neuts % (Manual) Lymphocytes % (Manual) Monocytes % (Manual) Nucleated RBC % Seg Neutrophils # Seg Neutrophils # Man Lymphocytes # (Manual) Monocytes # (Manual) PT INR D-Dimer ABG pH POC ABG pCO2 POC ABG pO2 ABG pO2 ABG HCO3 ABG Base Excess ABG Hemoglobin ABG Oxyhemoglobin ABG Sodium ABG Potassium ABG Chloride ABG Glucose Carboxyhemoglobin Sodium Potassium Chloride Carbon Dioxide BUN Creatinine Glucose POC Glucose 247 H 247 H 256 H Lactic Acid Calcium Phosphorus Ferritin Total Bilirubin Direct Bilirubin AST ALT Lactate Dehydrogenase Total Creatine Kinase Troponin T Total Protein Albumin Triglycerides Arterial Blood Glucose Arterial Blood Ionized Calcium Urine pH Urine Creatinine Salicylates Acetaminophen Coronavirus (PCR) 09/15/20 09/15/20 09/15/20 04:54 11:24 17:48 WBC RBC Hgb Hct MCHC RDW Lymph % (Auto) [place] % (Auto) Lymph # (Auto) [place] # (Auto) Seg Neutrophils % Seg Neuts % (Manual) Lymphocytes % (Manual) Monocytes % (Manual) Nucleated RBC % Seg Neutrophils # Seg Neutrophils # Man Lymphocytes # (Manual) Monocytes # (Manual) PT INR D-Dimer ABG pH POC ABG pCO2 POC ABG pO2 ABG pO2 ABG HCO3 ABG Base Excess ABG Hemoglobin ABG Oxyhemoglobin ABG Sodium ABG Potassium ABG Chloride ABG Glucose Carboxyhemoglobin Sodium Potassium Chloride Carbon Dioxide BUN Creatinine Glucose POC Glucose 271 H 228 H 254 H Lactic Acid Calcium Phosphorus Ferritin Total Bilirubin Direct Bilirubin AST ALT Lactate Dehydrogenase Total Creatine Kinase Troponin T Total Protein Albumin Triglycerides Arterial Blood Glucose Arterial Blood Ionized Calcium Urine pH Urine Creatinine Salicylates Acetaminophen Coronavirus (PCR) 09/15/20 09/15/20 09/15/20 19:20 19:20 23:13 WBC 27.3 H RBC 3.16 L Hgb 8.8 L Hct 27.0 L MCHC RDW 19.7 H Lymph % (Auto) [place] % (Auto) Lymph # (Auto) [place] # (Auto) Seg Neutrophils % Seg Neuts % (Manual) 81.0 H Lymphocytes % (Manual) 9.0 L Monocytes % (Manual) 10.0 H Nucleated RBC % Seg Neutrophils # Seg Neutrophils # Man 22.1 H Lymphocytes # (Manual) Monocytes # (Manual) 2.7 H PT INR D-Dimer ABG pH POC ABG pCO2 POC ABG pO2 ABG pO2 ABG HCO3 ABG Base Excess ABG Hemoglobin ABG Oxyhemoglobin ABG Sodium ABG Potassium ABG Chloride ABG Glucose Carboxyhemoglobin Sodium Potassium Chloride Carbon Dioxide BUN 68 H Creatinine 2.8 H Glucose 288 H POC Glucose 259 H Lactic Acid Calcium Phosphorus Ferritin Total Bilirubin Direct Bilirubin AST ALT Lactate Dehydrogenase Total Creatine Kinase Troponin T Total Protein Albumin Triglycerides Arterial Blood Glucose Arterial Blood Ionized Calcium Urine pH Urine Creatinine Salicylates Acetaminophen Coronavirus (PCR) 09/16/20 09/16/20 09/16/20 05:27 09:40 11:48 WBC RBC Hgb Hct MCHC RDW Lymph % (Auto) [place] % (Auto) Lymph # (Auto) [place] # (Auto) Seg Neutrophils % Seg Neuts % (Manual) Lymphocytes % (Manual) Monocytes % (Manual) Nucleated RBC % Seg Neutrophils # Seg Neutrophils # Man Lymphocytes # (Manual) Monocytes # (Manual) PT INR D-Dimer ABG pH POC ABG pCO2 POC ABG pO2 ABG pO2 ABG HCO3 ABG Base Excess ABG Hemoglobin ABG Oxyhemoglobin ABG Sodium ABG Potassium ABG Chloride ABG Glucose Carboxyhemoglobin Sodium Potassium Chloride Carbon Dioxide 31 H BUN 77 H Creatinine 2.9 H Glucose 250 H POC Glucose 275 H 234 H Lactic Acid Calcium Phosphorus Ferritin Total Bilirubin Direct Bilirubin AST ALT Lactate Dehydrogenase Total Creatine Kinase Troponin T Total Protein Albumin Triglycerides Arterial Blood Glucose Arterial Blood Ionized Calcium Urine pH Urine Creatinine Salicylates Acetaminophen Coronavirus (PCR) 09/16/20 09/16/20 09/17/20 17:40 23:23 00:01 WBC RBC Hgb Hct MCHC RDW Lymph % (Auto) [place] % (Auto) Lymph # (Auto) [place] # (Auto) Seg Neutrophils % Seg Neuts % (Manual) Lymphocytes % (Manual) Monocytes % (Manual) Nucleated RBC % Seg Neutrophils # Seg Neutrophils # Man Lymphocytes # (Manual) Monocytes # (Manual) PT INR D-Dimer ABG pH POC ABG pCO2 POC ABG pO2 ABG pO2 ABG HCO3 ABG Base Excess ABG Hemoglobin ABG Oxyhemoglobin ABG Sodium ABG Potassium ABG Chloride ABG Glucose Carboxyhemoglobin Sodium Potassium Chloride Carbon Dioxide BUN Creatinine Glucose POC Glucose 172 H 161 H Lactic Acid 2.10 H* Calcium Phosphorus Ferritin Total Bilirubin Direct Bilirubin AST ALT Lactate Dehydrogenase Total Creatine Kinase Troponin T Total Protein Albumin Triglycerides Arterial Blood Glucose Arterial Blood Ionized Calcium Urine pH Urine Creatinine Salicylates Acetaminophen Coronavirus (PCR) 09/17/20 09/17/20 09/17/20 04:00 04:00 05:09 WBC 19.5 H RBC 3.03 L Hgb 8.6 L Hct 26.3 L MCHC RDW 19.4 H Lymph % (Auto) 8.7 L [place] % (Auto) 13.7 H Lymph # (Auto) [place] # (Auto) 2.7 H Seg Neutrophils % 76.9 H Seg Neuts % (Manual) Lymphocytes % (Manual) Monocytes % (Manual) Nucleated RBC % Seg Neutrophils # 15.0 H Seg Neutrophils # Man Lymphocytes # (Manual) Monocytes # (Manual) PT INR D-Dimer ABG pH POC ABG pCO2 POC ABG pO2 ABG pO2 ABG HCO3 ABG Base Excess ABG Hemoglobin ABG Oxyhemoglobin ABG Sodium ABG Potassium ABG Chloride ABG Glucose Carboxyhemoglobin Sodium 146 H Potassium 3.1 L Chloride Carbon Dioxide BUN 79 H Creatinine 2.6 H Glucose 122 H POC Glucose 116 H Lactic Acid Calcium Phosphorus Ferritin Total Bilirubin Direct Bilirubin AST 64 H ALT 516 H Lactate Dehydrogenase Total Creatine Kinase Troponin T Total Protein 5.7 L Albumin 2.8 L Triglycerides Arterial Blood Glucose Arterial Blood Ionized Calcium Urine pH Urine Creatinine Salicylates Acetaminophen Coronavirus (PCR) 09/17/20 09/17/20 09/18/20 13:52 17:38 05:16 WBC RBC Hgb Hct MCHC RDW Lymph % (Auto) [place] % (Auto) Lymph # (Auto) [place] # (Auto) Seg Neutrophils % Seg Neuts % (Manual) Lymphocytes % (Manual) Monocytes % (Manual) Nucleated RBC % Seg Neutrophils # Seg Neutrophils # Man Lymphocytes # (Manual) Monocytes # (Manual) PT INR D-Dimer ABG pH POC ABG pCO2 POC ABG pO2 ABG pO2 ABG HCO3 ABG Base Excess ABG Hemoglobin ABG Oxyhemoglobin ABG Sodium ABG Potassium ABG Chloride ABG Glucose Carboxyhemoglobin Sodium Potassium Chloride Carbon Dioxide BUN Creatinine Glucose POC Glucose 68 L 126 H Lactic Acid 2.90 H* Calcium Phosphorus Ferritin Total Bilirubin Direct Bilirubin AST ALT Lactate Dehydrogenase Total Creatine Kinase Troponin T Total Protein Albumin Triglycerides Arterial Blood Glucose Arterial Blood Ionized Calcium Urine pH Urine Creatinine Salicylates Acetaminophen Coronavirus (PCR) 09/18/20 09/18/20 09/18/20 05:30 05:30 11:42 WBC 18.2 H RBC 3.18 L Hgb 9.0 L Hct 27.2 L MCHC RDW 18.8 H Lymph % (Auto) [place] % (Auto) Lymph # (Auto) [place] # (Auto) Seg Neutrophils % Seg Neuts % (Manual) Lymphocytes % (Manual) Monocytes % (Manual) Nucleated RBC % Seg Neutrophils # Seg Neutrophils # Man Lymphocytes # (Manual) Monocytes # (Manual) PT INR D-Dimer ABG pH POC ABG pCO2 POC ABG pO2 ABG pO2 ABG HCO3 ABG Base Excess ABG Hemoglobin ABG Oxyhemoglobin ABG Sodium ABG Potassium ABG Chloride ABG Glucose Carboxyhemoglobin Sodium Potassium 3.1 L Chloride Carbon Dioxide BUN 73 H Creatinine 2.6 H Glucose 154 H POC Glucose 140 H Lactic Acid Calcium Phosphorus Ferritin Total Bilirubin Direct Bilirubin AST ALT Lactate Dehydrogenase Total Creatine Kinase Troponin T Total Protein Albumin Triglycerides Arterial Blood Glucose Arterial Blood Ionized Calcium Urine pH Urine Creatinine Salicylates Acetaminophen Coronavirus (PCR) 09/18/20 09/18/20 09/19/20 18:15 23:37 05:13 WBC 22.8 H RBC 3.30 L Hgb 9.2 L Hct 28.1 L MCHC RDW 18.2 H Lymph % (Auto) [place] % (Auto) Lymph # (Auto) [place] # (Auto) Seg Neutrophils % Seg Neuts % (Manual) 87.0 H Lymphocytes % (Manual) 5.0 L Monocytes % (Manual) Nucleated RBC % Seg Neutrophils # Seg Neutrophils # Man 19.8 H Lymphocytes # (Manual) 1.1 L Monocytes # (Manual) 1.6 H PT INR D-Dimer ABG pH POC ABG pCO2 POC ABG pO2 ABG pO2 ABG HCO3 ABG Base Excess ABG Hemoglobin ABG Oxyhemoglobin ABG Sodium ABG Potassium ABG Chloride ABG Glucose Carboxyhemoglobin Sodium Potassium Chloride Carbon Dioxide BUN Creatinine Glucose POC Glucose 149 H 153 H Lactic Acid Calcium Phosphorus Ferritin Total Bilirubin Direct Bilirubin AST ALT Lactate Dehydrogenase Total Creatine Kinase Troponin T Total Protein Albumin Triglycerides Arterial Blood Glucose Arterial Blood Ionized Calcium Urine pH Urine Creatinine Salicylates Acetaminophen Coronavirus (PCR) 09/19/20 09/19/20 09/19/20 05:13 05:25 11:56 WBC RBC Hgb Hct MCHC RDW Lymph % (Auto) [place] % (Auto) Lymph # (Auto) [place] # (Auto) Seg Neutrophils % Seg Neuts % (Manual) Lymphocytes % (Manual) Monocytes % (Manual) Nucleated RBC % Seg Neutrophils # Seg Neutrophils # Man Lymphocytes # (Manual) Monocytes # (Manual) PT INR D-Dimer ABG pH POC ABG pCO2 POC ABG pO2 ABG pO2 ABG HCO3 ABG Base Excess ABG Hemoglobin ABG Oxyhemoglobin ABG Sodium ABG Potassium ABG Chloride ABG Glucose Carboxyhemoglobin Sodium Potassium Chloride Carbon Dioxide BUN 55 H Creatinine 2.3 H Glucose 196 H POC Glucose 168 H 137 H Lactic Acid Calcium Phosphorus Ferritin Total Bilirubin Direct Bilirubin AST ALT Lactate Dehydrogenase Total Creatine Kinase Troponin T Total Protein Albumin Triglycerides Arterial Blood Glucose Arterial Blood Ionized Calcium Urine pH Urine Creatinine Salicylates Acetaminophen Coronavirus (PCR) 09/19/20 09/19/20 09/20/20 17:43 23:43 05:02 WBC RBC Hgb Hct MCHC RDW Lymph % (Auto) [place] % (Auto) Lymph # (Auto) [place] # (Auto) Seg Neutrophils % Seg Neuts % (Manual) Lymphocytes % (Manual) Monocytes % (Manual) Nucleated RBC % Seg Neutrophils # Seg Neutrophils # Man Lymphocytes # (Manual) Monocytes # (Manual) PT INR D-Dimer ABG pH POC ABG pCO2 POC ABG pO2 ABG pO2 ABG HCO3 ABG Base Excess ABG Hemoglobin ABG Oxyhemoglobin ABG Sodium ABG Potassium ABG Chloride ABG Glucose Carboxyhemoglobin Sodium Potassium Chloride Carbon Dioxide BUN Creatinine Glucose POC Glucose 114 H 136 H 163 H Lactic Acid Calcium Phosphorus Ferritin Total Bilirubin Direct Bilirubin AST ALT Lactate Dehydrogenase Total Creatine Kinase Troponin T Total Protein Albumin Triglycerides Arterial Blood Glucose Arterial Blood Ionized Calcium Urine pH Urine Creatinine Salicylates Acetaminophen Coronavirus (PCR) 09/20/20 09/20/20 09/20/20 05:36 05:36 11:10 WBC 20.1 H RBC 3.07 L Hgb 8.5 L Hct 26.4 L MCHC RDW 18.6 H Lymph % (Auto) 9.6 L [place] % (Auto) 9.6 H Lymph # (Auto) [place] # (Auto) 1.9 H Seg Neutrophils % 79.0 H Seg Neuts % (Manual) Lymphocytes % (Manual) Monocytes % (Manual) Nucleated RBC % Seg Neutrophils # 15.9 H Seg Neutrophils # Man Lymphocytes # (Manual) Monocytes # (Manual) PT INR D-Dimer ABG pH POC ABG pCO2 POC ABG pO2 ABG pO2 ABG HCO3 ABG Base Excess ABG Hemoglobin ABG Oxyhemoglobin ABG Sodium ABG Potassium ABG Chloride ABG Glucose Carboxyhemoglobin Sodium Potassium 3.3 L Chloride Carbon Dioxide BUN 76 H Creatinine 3.6 H D Glucose 213 H POC Glucose 167 H Lactic Acid Calcium Phosphorus Ferritin Total Bilirubin Direct Bilirubin AST ALT Lactate Dehydrogenase Total Creatine Kinase Troponin T Total Protein Albumin Triglycerides Arterial Blood Glucose Arterial Blood Ionized Calcium Urine pH Urine Creatinine Salicylates Acetaminophen Coronavirus (PCR) 09/20/20 09/20/20 09/20/20 14:02 17:24 23:30 WBC RBC Hgb Hct MCHC RDW Lymph % (Auto) [place] % (Auto) Lymph # (Auto) [place] # (Auto) Seg Neutrophils % Seg Neuts % (Manual) Lymphocytes % (Manual) Monocytes % (Manual) Nucleated RBC % Seg Neutrophils # Seg Neutrophils # Man Lymphocytes # (Manual) Monocytes # (Manual) PT INR D-Dimer ABG pH POC ABG pCO2 POC ABG pO2 ABG pO2 ABG HCO3 ABG Base Excess ABG Hemoglobin ABG Oxyhemoglobin ABG Sodium ABG Potassium ABG Chloride ABG Glucose Carboxyhemoglobin Sodium Potassium Chloride Carbon Dioxide BUN Creatinine Glucose POC Glucose 164 H 146 H 147 H Lactic Acid Calcium Phosphorus Ferritin Total Bilirubin Direct Bilirubin AST ALT Lactate Dehydrogenase Total Creatine Kinase Troponin T Total Protein Albumin Triglycerides Arterial Blood Glucose Arterial Blood Ionized Calcium Urine pH Urine Creatinine Salicylates Acetaminophen Coronavirus (PCR) 09/21/20 09/21/20 09/21/20 05:00 05:00 05:24 WBC 17.4 H RBC 2.95 L Hgb 8.3 L Hct 25.8 L MCHC RDW 19.3 H Lymph % (Auto) 11.1 L [place] % (Auto) 11.1 H Lymph # (Auto) [place] # (Auto) 1.9 H Seg Neutrophils % 75.9 H Seg Neuts % (Manual) Lymphocytes % (Manual) Monocytes % (Manual) Nucleated RBC % Seg Neutrophils # 13.2 H Seg Neutrophils # Man Lymphocytes # (Manual) Monocytes # (Manual) PT INR D-Dimer ABG pH POC ABG pCO2 POC ABG pO2 ABG pO2 ABG HCO3 ABG Base Excess ABG Hemoglobin ABG Oxyhemoglobin ABG Sodium ABG Potassium ABG Chloride ABG Glucose Carboxyhemoglobin Sodium Potassium Chloride Carbon Dioxide BUN 60 H Creatinine 3.5 H Glucose 185 H POC Glucose 139 H Lactic Acid Calcium Phosphorus Ferritin Total Bilirubin Direct Bilirubin AST ALT Lactate Dehydrogenase Total Creatine Kinase Troponin T Total Protein Albumin Triglycerides Arterial Blood Glucose Arterial Blood Ionized Calcium Urine pH Urine Creatinine Salicylates Acetaminophen Coronavirus (PCR) 09/21/20 09/21/20 09/21/20 11:59 17:59 23:32 WBC RBC Hgb Hct MCHC RDW Lymph % (Auto) [place] % (Auto) Lymph # (Auto) [place] # (Auto) Seg Neutrophils % Seg Neuts % (Manual) Lymphocytes % (Manual) Monocytes % (Manual) Nucleated RBC % Seg Neutrophils # Seg Neutrophils # Man Lymphocytes # (Manual) Monocytes # (Manual) PT INR D-Dimer ABG pH POC ABG pCO2 POC ABG pO2 ABG pO2 ABG HCO3 ABG Base Excess ABG Hemoglobin ABG Oxyhemoglobin ABG Sodium ABG Potassium ABG Chloride ABG Glucose Carboxyhemoglobin Sodium Potassium Chloride Carbon Dioxide BUN Creatinine Glucose POC Glucose 183 H 141 H 162 H Lactic Acid Calcium Phosphorus Ferritin Total Bilirubin Direct Bilirubin AST ALT Lactate Dehydrogenase Total Creatine Kinase Troponin T Total Protein Albumin Triglycerides Arterial Blood Glucose Arterial Blood Ionized Calcium Urine pH Urine Creatinine Salicylates Acetaminophen Coronavirus (PCR) 09/22/20 09/22/20 09/22/20 05:32 12:07 17:53 WBC RBC Hgb Hct MCHC RDW Lymph % (Auto) [place] % (Auto) Lymph # (Auto) [place] # (Auto) Seg Neutrophils % Seg Neuts % (Manual) Lymphocytes % (Manual) Monocytes % (Manual) Nucleated RBC % Seg Neutrophils # Seg Neutrophils # Man Lymphocytes # (Manual) Monocytes # (Manual) PT INR D-Dimer ABG pH POC ABG pCO2 POC ABG pO2 ABG pO2 ABG HCO3 ABG Base Excess ABG Hemoglobin ABG Oxyhemoglobin ABG Sodium ABG Potassium ABG Chloride ABG Glucose Carboxyhemoglobin Sodium Potassium Chloride Carbon Dioxide BUN Creatinine Glucose POC Glucose 172 H 169 H 178 H Lactic Acid Calcium Phosphorus Ferritin Total Bilirubin Direct Bilirubin AST ALT Lactate Dehydrogenase Total Creatine Kinase Troponin T Total Protein Albumin Triglycerides Arterial Blood Glucose Arterial Blood Ionized Calcium Urine pH Urine Creatinine Salicylates Acetaminophen Coronavirus (PCR) 09/22/20 09/23/20 09/23/20 23:34 05:21 06:05 WBC RBC Hgb Hct MCHC RDW Lymph % (Auto) [place] % (Auto) Lymph # (Auto) [place] # (Auto) Seg Neutrophils % Seg Neuts % (Manual) Lymphocytes % (Manual) Monocytes % (Manual) Nucleated RBC % Seg Neutrophils # Seg Neutrophils # Man Lymphocytes # (Manual) Monocytes # (Manual) PT INR D-Dimer ABG pH POC ABG pCO2 POC ABG pO2 ABG pO2 ABG HCO3 ABG Base Excess ABG Hemoglobin ABG Oxyhemoglobin ABG Sodium ABG Potassium ABG Chloride ABG Glucose Carboxyhemoglobin Sodium 147 H Potassium Chloride 109.2 H Carbon Dioxide 21 L BUN 54 H Creatinine 4.2 H Glucose 193 H POC Glucose 151 H 168 H Lactic Acid Calcium Phosphorus Ferritin Total Bilirubin Direct Bilirubin AST ALT Lactate Dehydrogenase Total Creatine Kinase Troponin T Total Protein Albumin Triglycerides Arterial Blood Glucose Arterial Blood Ionized Calcium Urine pH Urine Creatinine Salicylates Acetaminophen Coronavirus (PCR) 09/23/20 09/23/20 09/23/20 12:30 17:52 23:16 WBC RBC Hgb Hct MCHC RDW Lymph % (Auto) [place] % (Auto) Lymph # (Auto) [place] # (Auto) Seg Neutrophils % Seg Neuts % (Manual) Lymphocytes % (Manual) Monocytes % (Manual) Nucleated RBC % Seg Neutrophils # Seg Neutrophils # Man Lymphocytes # (Manual) Monocytes # (Manual) PT INR D-Dimer ABG pH POC ABG pCO2 POC ABG pO2 ABG pO2 ABG HCO3 ABG Base Excess ABG Hemoglobin ABG Oxyhemoglobin ABG Sodium ABG Potassium ABG Chloride ABG Glucose Carboxyhemoglobin Sodium Potassium Chloride Carbon Dioxide BUN Creatinine Glucose POC Glucose 170 H 164 H 160 H Lactic Acid Calcium Phosphorus Ferritin Total Bilirubin Direct Bilirubin AST ALT Lactate Dehydrogenase Total Creatine Kinase Troponin T Total Protein Albumin Triglycerides Arterial Blood Glucose Arterial Blood Ionized Calcium Urine pH Urine Creatinine Salicylates Acetaminophen Coronavirus (PCR) 09/24/20 09/24/20 09/24/20 05:22 05:44 12:32 WBC RBC Hgb Hct MCHC RDW Lymph % (Auto) [place] % (Auto) Lymph # (Auto) [place] # (Auto) Seg Neutrophils % Seg Neuts % (Manual) Lymphocytes % (Manual) Monocytes % (Manual) Nucleated RBC % Seg Neutrophils # Seg Neutrophils # Man Lymphocytes # (Manual) Monocytes # (Manual) PT INR D-Dimer ABG pH POC ABG pCO2 POC ABG pO2 ABG pO2 ABG HCO3 ABG Base Excess ABG Hemoglobin ABG Oxyhemoglobin ABG Sodium ABG Potassium ABG Chloride ABG Glucose Carboxyhemoglobin Sodium 148 H Potassium Chloride 109.2 H Carbon Dioxide BUN 61 H Creatinine 4.9 H Glucose 176 H POC Glucose 150 H 165 H Lactic Acid Calcium Phosphorus Ferritin Total Bilirubin Direct Bilirubin AST ALT Lactate Dehydrogenase Total Creatine Kinase Troponin T Total Protein Albumin Triglycerides Arterial Blood Glucose Arterial Blood Ionized Calcium Urine pH Urine Creatinine Salicylates Acetaminophen Coronavirus (PCR) 09/24/20 09/24/20 09/25/20 17:28 23:18 05:18 WBC RBC Hgb Hct MCHC RDW Lymph % (Auto) [place] % (Auto) Lymph # (Auto) [place] # (Auto) Seg Neutrophils % Seg Neuts % (Manual) Lymphocytes % (Manual) Monocytes % (Manual) Nucleated RBC % Seg Neutrophils # Seg Neutrophils # Man Lymphocytes # (Manual) Monocytes # (Manual) PT INR D-Dimer ABG pH POC ABG pCO2 POC ABG pO2 ABG pO2 ABG HCO3 ABG Base Excess ABG Hemoglobin ABG Oxyhemoglobin ABG Sodium ABG Potassium ABG Chloride ABG Glucose Carboxyhemoglobin Sodium 149 H Potassium 3.3 L Chloride 109.6 H Carbon Dioxide BUN 70 H Creatinine 5.6 H Glucose 196 H POC Glucose 153 H 177 H Lactic Acid Calcium Phosphorus Ferritin Total Bilirubin Direct Bilirubin AST 55 H ALT 74 H Lactate Dehydrogenase Total Creatine Kinase Troponin T Total Protein Albumin 2.6 L Triglycerides Arterial Blood Glucose Arterial Blood Ionized Calcium Urine pH Urine Creatinine Salicylates Acetaminophen Coronavirus (PCR) 09/25/20 09/25/20 09/25/20 05:18 11:47 17:04 WBC RBC Hgb Hct MCHC RDW Lymph % (Auto) [place] % (Auto) Lymph # (Auto) [place] # (Auto) Seg Neutrophils % Seg Neuts % (Manual) Lymphocytes % (Manual) Monocytes % (Manual) Nucleated RBC % Seg Neutrophils # Seg Neutrophils # Man Lymphocytes # (Manual) Monocytes # (Manual) PT INR D-Dimer ABG pH POC ABG pCO2 POC ABG pO2 ABG pO2 ABG HCO3 ABG Base Excess ABG Hemoglobin ABG Oxyhemoglobin ABG Sodium ABG Potassium ABG Chloride ABG Glucose Carboxyhemoglobin Sodium Potassium Chloride Carbon Dioxide BUN Creatinine Glucose POC Glucose 159 H 169 H 142 H Lactic Acid Calcium Phosphorus Ferritin Total Bilirubin Direct Bilirubin AST ALT Lactate Dehydrogenase Total Creatine Kinase Troponin T Total Protein Albumin Triglycerides Arterial Blood Glucose Arterial Blood Ionized Calcium Urine pH Urine Creatinine Salicylates Acetaminophen Coronavirus (PCR) 09/25/20 09/26/20 09/26/20 23:20 04:00 05:00 WBC RBC 2.93 L Hgb 8.5 L Hct 25.8 L MCHC RDW 18.5 H Lymph % (Auto) [place] % (Auto) 11.3 H Lymph # (Auto) [place] # (Auto) 1.1 H Seg Neutrophils % 72.0 H Seg Neuts % (Manual) Lymphocytes % (Manual) Monocytes % (Manual) Nucleated RBC % Seg Neutrophils # Seg Neutrophils # Man Lymphocytes # (Manual) Monocytes # (Manual) PT INR D-Dimer ABG pH POC ABG pCO2 POC ABG pO2 ABG pO2 ABG HCO3 ABG Base Excess ABG Hemoglobin ABG Oxyhemoglobin ABG Sodium ABG Potassium ABG Chloride ABG Glucose Carboxyhemoglobin Sodium Potassium 3.4 L Chloride Carbon Dioxide BUN 49 H Creatinine 4.4 H Glucose 179 H POC Glucose 138 H Lactic Acid Calcium Phosphorus Ferritin Total Bilirubin Direct Bilirubin AST ALT Lactate Dehydrogenase Total Creatine Kinase Troponin T Total Protein Albumin Triglycerides Arterial Blood Glucose Arterial Blood Ionized Calcium Urine pH Urine Creatinine Salicylates Acetaminophen Coronavirus (PCR) 09/26/20 09/26/20 09/26/20 05:18 11:59 17:37 WBC RBC Hgb Hct MCHC RDW Lymph % (Auto) [place] % (Auto) Lymph # (Auto) [place] # (Auto) Seg Neutrophils % Seg Neuts % (Manual) Lymphocytes % (Manual) Monocytes % (Manual) Nucleated RBC % Seg Neutrophils # Seg Neutrophils # Man Lymphocytes # (Manual) Monocytes # (Manual) PT INR D-Dimer ABG pH POC ABG pCO2 POC ABG pO2 ABG pO2 ABG HCO3 ABG Base Excess ABG Hemoglobin ABG Oxyhemoglobin ABG Sodium ABG Potassium ABG Chloride ABG Glucose Carboxyhemoglobin Sodium Potassium Chloride Carbon Dioxide BUN Creatinine Glucose POC Glucose 155 H 165 H 132 H Lactic Acid Calcium Phosphorus Ferritin Total Bilirubin Direct Bilirubin AST ALT Lactate Dehydrogenase Total Creatine Kinase Troponin T Total Protein Albumin Triglycerides Arterial Blood Glucose Arterial Blood Ionized Calcium Urine pH Urine Creatinine Salicylates Acetaminophen Coronavirus (PCR) 09/26/20 09/27/20 09/27/20 23:35 04:47 04:47 WBC RBC 3.24 L Hgb 9.3 L Hct 28.6 L MCHC RDW 18.2 H Lymph % (Auto) [place] % (Auto) 11.6 H Lymph # (Auto) [place] # (Auto) 1.0 H Seg Neutrophils % Seg Neuts % (Manual) Lymphocytes % (Manual) Monocytes % (Manual) Nucleated RBC % Seg Neutrophils # Seg Neutrophils # Man Lymphocytes # (Manual) Monocytes # (Manual) PT INR D-Dimer ABG pH POC ABG pCO2 POC ABG pO2 ABG pO2 ABG HCO3 ABG Base Excess ABG Hemoglobin ABG Oxyhemoglobin ABG Sodium ABG Potassium ABG Chloride ABG Glucose Carboxyhemoglobin Sodium Potassium Chloride Carbon Dioxide BUN 54 H Creatinine 4.7 H Glucose 218 H POC Glucose 180 H Lactic Acid Calcium Phosphorus Ferritin Total Bilirubin Direct Bilirubin AST ALT Lactate Dehydrogenase Total Creatine Kinase Troponin T Total Protein Albumin Triglycerides Arterial Blood Glucose Arterial Blood Ionized Calcium Urine pH Urine Creatinine Salicylates Acetaminophen Coronavirus (PCR) 09/27/20 09/27/20 09/27/20 05:14 11:49 17:48 WBC RBC Hgb Hct MCHC RDW Lymph % (Auto) [place] % (Auto) Lymph # (Auto) [place] # (Auto) Seg Neutrophils % Seg Neuts % (Manual) Lymphocytes % (Manual) Monocytes % (Manual) Nucleated RBC % Seg Neutrophils # Seg Neutrophils # Man Lymphocytes # (Manual) Monocytes # (Manual) PT INR D-Dimer ABG pH POC ABG pCO2 POC ABG pO2 ABG pO2 ABG HCO3 ABG Base Excess ABG Hemoglobin ABG Oxyhemoglobin ABG Sodium ABG Potassium ABG Chloride ABG Glucose Carboxyhemoglobin Sodium Potassium Chloride Carbon Dioxide BUN Creatinine Glucose POC Glucose 197 H 219 H 203 H Lactic Acid Calcium Phosphorus Ferritin Total Bilirubin Direct Bilirubin AST ALT Lactate Dehydrogenase Total Creatine Kinase Troponin T Total Protein Albumin Triglycerides Arterial Blood Glucose Arterial Blood Ionized Calcium Urine pH Urine Creatinine Salicylates Acetaminophen Coronavirus (PCR) 09/27/20 09/28/20 09/28/20 23:26 05:28 07:02 WBC RBC Hgb Hct MCHC RDW Lymph % (Auto) [place] % (Auto) Lymph # (Auto) [place] # (Auto) Seg Neutrophils % Seg Neuts % (Manual) Lymphocytes % (Manual) Monocytes % (Manual) Nucleated RBC % Seg Neutrophils # Seg Neutrophils # Man Lymphocytes # (Manual) Monocytes # (Manual) PT INR D-Dimer ABG pH POC ABG pCO2 POC ABG pO2 ABG pO2 ABG HCO3 ABG Base Excess ABG Hemoglobin ABG Oxyhemoglobin ABG Sodium ABG Potassium ABG Chloride ABG Glucose Carboxyhemoglobin Sodium Potassium Chloride Carbon Dioxide BUN 37 H Creatinine 3.8 H Glucose 270 H POC Glucose 243 H 227 H Lactic Acid Calcium Phosphorus Ferritin Total Bilirubin Direct Bilirubin AST ALT Lactate Dehydrogenase Total Creatine Kinase Troponin T Total Protein Albumin Triglycerides Arterial Blood Glucose Arterial Blood Ionized Calcium Urine pH Urine Creatinine Salicylates Acetaminophen Coronavirus (PCR) 09/28/20 09/28/20 09/28/20 07:02 11:35 17:44 WBC RBC 3.26 L Hgb 9.3 L Hct 28.7 L MCHC RDW 18.5 H Lymph % (Auto) [place] % (Auto) 12.7 H Lymph # (Auto) [place] # (Auto) 1.1 H Seg Neutrophils % Seg Neuts % (Manual) Lymphocytes % (Manual) Monocytes % (Manual) Nucleated RBC % Seg Neutrophils # Seg Neutrophils # Man Lymphocytes # (Manual) Monocytes # (Manual) PT INR D-Dimer ABG pH POC ABG pCO2 POC ABG pO2 ABG pO2 ABG HCO3 ABG Base Excess ABG Hemoglobin ABG Oxyhemoglobin ABG Sodium ABG Potassium ABG Chloride ABG Glucose Carboxyhemoglobin Sodium Potassium Chloride Carbon Dioxide BUN Creatinine Glucose POC Glucose 230 H 237 H Lactic Acid Calcium Phosphorus Ferritin Total Bilirubin Direct Bilirubin AST ALT Lactate Dehydrogenase Total Creatine Kinase Troponin T Total Protein Albumin Triglycerides Arterial Blood Glucose Arterial Blood Ionized Calcium Urine pH Urine Creatinine Salicylates Acetaminophen Coronavirus (PCR) 09/28/20 09/29/20 09/29/20 23:52 05:11 05:20 WBC RBC Hgb Hct MCHC RDW Lymph % (Auto) [place] % (Auto) Lymph # (Auto) [place] # (Auto) Seg Neutrophils % Seg Neuts % (Manual) Lymphocytes % (Manual) Monocytes % (Manual) Nucleated RBC % Seg Neutrophils # Seg Neutrophils # Man Lymphocytes # (Manual) Monocytes # (Manual) PT INR D-Dimer ABG pH POC ABG pCO2 POC ABG pO2 ABG pO2 ABG HCO3 ABG Base Excess ABG Hemoglobin ABG Oxyhemoglobin ABG Sodium ABG Potassium ABG Chloride ABG Glucose Carboxyhemoglobin Sodium Potassium Chloride Carbon Dioxide BUN 47 H Creatinine 4.2 H Glucose 289 H POC Glucose 261 H 254 H Lactic Acid Calcium Phosphorus Ferritin Total Bilirubin Direct Bilirubin AST ALT Lactate Dehydrogenase Total Creatine Kinase Troponin T Total Protein Albumin Triglycerides Arterial Blood Glucose Arterial Blood Ionized Calcium Urine pH Urine Creatinine Salicylates Acetaminophen Coronavirus (PCR) 09/29/20 05:20 WBC RBC 3.23 L Hgb 9.0 L Hct 27.7 L MCHC RDW 18.3 H Lymph % (Auto) 13.0 L [place] % (Auto) 13.8 H Lymph # (Auto) [place] # (Auto) 1.5 H Seg Neutrophils % 72.3 H Seg Neuts % (Manual) Lymphocytes % (Manual) Monocytes % (Manual) Nucleated RBC % Seg Neutrophils # Seg Neutrophils # Man Lymphocytes # (Manual) Monocytes # (Manual) PT INR D-Dimer ABG pH POC ABG pCO2 POC ABG pO2 ABG pO2 ABG HCO3 ABG Base Excess ABG Hemoglobin ABG Oxyhemoglobin ABG Sodium ABG Potassium ABG Chloride ABG Glucose Carboxyhemoglobin Sodium Potassium Chloride Carbon Dioxide BUN Creatinine Glucose POC Glucose Lactic Acid Calcium Phosphorus Ferritin Total Bilirubin Direct Bilirubin AST ALT Lactate Dehydrogenase Total Creatine Kinase Troponin T Total Protein Albumin Triglycerides Arterial Blood Glucose Arterial Blood Ionized Calcium Urine pH Urine Creatinine Salicylates Acetaminophen Coronavirus (PCR)
[2020-09-29] MEDS ORDERED: INSULIN GLARGINE 100 UNITS/ML SUB-Q SCH (12:00)
[2020-09-30] MEDS: INSULIN LISPRO 100 UNIT/ML SUB-Q SCH ×4 (05:31→23:56)
[2020-09-30] MEDS: hydrALAZINE 25 MG TAB PO SCH ×3 (05:34→21:39)
[2020-09-30 07:04] LABS: Hematocrit 27.4 % (35.5-45.6); Mean Corpuscular HGB Conc 33 % (32-34); Mean Corpuscular Volume 87 fl (84-94); Platelet Count 155 K/mm3 (140-440); Red Blood Count 3.14 M/mm3 (3.65-5.03); Red Cell Distribution Width 18.5 % (13.2-15.2)
[2020-09-30] MEDS: levETIRAcetam 500 MG/5 ML ORAL LIQD PO SCH ×2 (10:08→21:37)
[2020-09-30] MEDS: VALPROIC ACID 250 MG/5 ML ORAL LIQD FEEDTUBE SCH ×2 (10:09→21:37)
[2020-09-30] MEDS: LANSOPRAZOLE 30 MG SOLUTAB FEEDTUBE SCH ×2 (10:09→21:39)
[2020-09-30] MEDS: INSULIN GLARGINE 100 UNITS/ML SUB-Q SCH (10:09)
[2020-09-30] MEDS: MULTIVITAMINS 5 ML ORAL LIQUID PO SCH (10:14)
--- NOTE | 2020-09-30 10:17 | Progress Note ---
Assessment and Plan Assessment and plan: S/p cardiopulmonary arrest (out of hospital) Toxic metabolic encephalopathy +/-anoxic injury Acute hypoxic respiratory failure Nonoliguric acute kidney injury secondary to ATN. Patient status post emergent hemodialysis 09/08. Seizure disorder Hyperkalemia Hypernatremia COVID-19 pneumonia Sepsis Transaminitis Morbid obesity. 09/15/2020. MRI brain for further evaluation. Continue AEDs of valproic acid and Keppra. Continue hemodialysis per nephrology recommendations. Overall prognosis remains guarded and poor. 09/16/2020. ID recommends continue to monitor patient off of antibiotics. Fever most likely of central etiology. Patient with questionable seizures versus myoclonus from anoxic brain injury. Patient unable to undergo MRI due to body habitus. Continue AEDs per neurology recommendations. Inflammatory markers elevated. Patient was recently hospitalized for COVID-19 pneumonia at the [place] prior to being hospitalized here. Patient not a candidate for remdesivir due to hepatic and renal failure. Viral hepatitis panel negative. Overall prognosis extremely poor. 09/17/2020. Fevers have resolved over the past 48 hours. Continue to monitor off antibiotics per ID recommendations. Patient with questionable seizures versus myoclonus from anoxic brain injury. Patient unable to undergo MRI due to body habitus. EEG is nonspecific but given CT of head findings consistent with anoxic encephalopathy, brain injury. Continue AEDs per neurology recommendations. Inflammatory markers elevated. Patient was recently hospitalized for COVID-19 pneumonia at the [place] prior to being hospitalized here. Patient not a candidate for remdesivir due to hepatic and renal failure. Viral hepatitis panel negative. Patient is s/p emergent HD on Friday (hyperK) and Friday - 09/08. Patient also S/p HD 09/15. Continue hemodialysis per nephrology recommendations. Patient currently on AC/PRVC mode ventilation with rate of 30, tidal volume 475, FiO2 30% and PEEP of 6. As stated in neuro note, overall prognosis is very poor. 09/18/2020. Fevers have resolved over the past 72 hours. Continue to monitor off antibiotics per ID recommendations. Leukocytosis persistent for the past 4 days. Patient with questionable seizures/myoclonus from anoxic brain injury. Patient unable to undergo MRI due to body habitus. EEG is nonspecific but given CT of head findings consistent with anoxic encephalopathy, brain injury. Continue AEDs per neurology recommendations. Inflammatory markers elevated. Patient was recently hospitalized for COVID-19 pneumonia at the [facility] prior to being hospitalized here. Patient not a candidate for remdesivir due to hepatic and renal failure. Viral hepatitis panel negative. Patient currently on AC/PRVC mode ventilation with rate of 30, tidal volume 475, FiO2 30% and PEEP of 6. Overall prognosis remains guarded/poor. 09/19/2020 Fevers have resolved over the past 4 days. Continue to monitor off antibiotics per ID recommendations. Leukocytosis persistent for the past 4 days. Patient with questionable seizures/myoclonus from anoxic brain injury. Patient unable to undergo MRI due to body habitus. EEG is nonspecific but given CT of head findings consistent with anoxic encephalopathy, brain injury. Continue AEDs per neurology recommendations. Inflammatory markers elevated. Patient was recently hospitalized for COVID-19 pneumonia at the [place] prior to being hospitalized here. Patient not a candidate for remdesivir due to hepatic and renal failure. Viral hepatitis panel negative. Patient currently on AC/PRVC mode ventilation with rate of 30, tidal volume 475, FiO2 30% and PEEP of 6. Overall prognosis remains guarded/poor. 09/20/2020 -Surgery consulted for PEG and trach, will continue to follow. 09/21/2020; patient will have PEG and trach by Dr. hayes today. Prognosis is poor. Continue with current management. Format Proofreader is following for vent management. 09/22/2020; patient had PEG and trach yesterday. 09/23/2020; continue PEG Tube Feeding. 09/24/2020; continue PEG tube feeding, patient is on Keppra, lorazepam and phenyt oin per neurology recommendation. Patient is on hemodialysis and nephrology is following. Management of mechanical ventilation for CCM. 09/25/2020. Continue PEG tube feeding, patient is on Keppra, lorazepam and phenytoin per neurology recommendation. Patient is on hemodialysis and nephrology is following. Management of mechanical ventilation for CCM. Continue PSV/CPAP 07/16. Continue tracheostomy care, secretion control and airway management. 09/26/2020. Patient has tolerated PSV for approximately 48 hours. I discussed with pulmonary possibility of T-piece today. Continue tracheostomy care, secretion control and airway management. If patient tolerates T-piece trials, patient will be transferred to the floor. Continue AEDs of Keppra and phenytoin as well as Ativan as needed per neurology recommendations. Continue hemodialysis per nephrology. Continue TF with aspiration precautions. 09/27/2020. Patient continues to tolerate PSV 12/6 at 30% FiO2. T-piece trials per pulmonary. Continue tracheostomy care, secretion control and airway management. Continue AEDs of Keppra and phenytoin as well as Ativan as needed per neurology recommendations. Continue hemodialysis per nephrology. Continue TF with aspiration precautions. 09/28/2020. Patient for T-piece trials per pulmonary. Continue hemodialysis per nephrology. Continue tracheostomy care, secretion control and airway management. Continue AEDs of Keppra and phenytoin as well as Ativan as needed per neurology recommendations. Continue TF with aspiration precautions. 09/29/2020, continue T-piece trials per pulmonary. Continue hemodialysis per nephrology. Continue strict I/O's and labs daily. Monitor for renal recovery. 09/30/2020. Continue T-piece trials per pulmonary recommendations. Continue tracheostomy care, secretion control and airway management. Continue hemodialysis per nephrology. Tight glycemic control. Continue TF with aspiration precautions. The high probability of a clinically significant, sudden or life threatening deterioration of the [cardiac, respiratory and neurological] system(s) required my full and direct attention, intervention and personal management. The aggregate critical care time was [31] minutes. This time is in addition to time spent performing reported procedures but includes the following: [x] Data Review and interpretation [x] Patient assessment and monitoring of vital signs [x] Documentation [x] Medication orders and management History Interval history: 65 y/o male with out of hospital cardiac arrest, acute hypoxic respiratory failure and COVID-19 infection. Hospitalist Physical - Constitutional Vitals: Temp Pulse Resp BP Pulse Ox 98.2 F 76 36 H 111/54 99 09/30/20 07:00 09/30/20 10:00 09/30/20 10:00 09/30/20 10:00 09/30/20 10:00 General appearance: Present: other (On mechanical ventilation) - EENT Eyes: Present: PERRL, EOM intact ENT: hearing intact, clear oral mucosa, dentition normal - Neck Neck: Present: supple, normal ROM - Respiratory Respiratory effort: normal Respiratory: bilateral: CTA - Cardiovascular Rhythm: regular Heart Sounds: Present: S1 & S2. Absent: gallop, rub - Extremities Extremities: no ischemia, No edema, Full ROM - Abdominal General gastrointestinal: soft, non-tender, non-distended, normal bowel sounds - Integumentary Integumentary: Present: clear, warm, dry - Neurologic Neurologic: CNII-XII intact, moves all extremities HEART Score - HEART Score Troponin: Troponin T 0.076 ng/mL (0.00-0.029) H 09/07/20 14:00 Results - Labs CBC & Chem 7: 09/30/20 06:57 09/29/20 05:20 Labs: Laboratory Last Values WBC 8.8 K/mm3 (4.5-11.0) 09/30/20 06:57 RBC 3.14 M/mm3 (3.65-5.03) L 09/30/20 06:57 Hgb 9.0 gm/dl (11.8-15.2) L 09/30/20 06:57 Hct 27.4 % (35.5-45.6) L 09/30/20 06:57 MCV 87 fl (84-94) 09/30/20 06:57 MCH 29 pg (28-32) 09/30/20 06:57 MCHC 33 % (32-34) 09/30/20 06:57 RDW 18.5 % (13.2-15.2) H 09/30/20 06:57 Plt Count 155 K/mm3 (140-440) 09/30/20 06:57 Lymph % (Auto) 13.0 % (13.4-35.0) L 09/29/20 05:20 [place] % (Auto) Structural Ironworker 09/30/20 06:57 Eos % (Auto) 0.7 % (0.0-4.3) 09/29/20 05:20 Baso % (Auto) 0.2 % (0.0-1.8) 09/29/20 05:20 Lymph # (Auto) 1.4 K/mm3 (1.2-5.4) 09/29/20 05:20 [place] # (Auto) 1.5 K/mm3 (0.0-0.8) H 09/29/20 05:20 Eos # (Auto) 0.1 K/mm3 (0.0-0.4) 09/29/20 05:20 Baso # (Auto) 0.0 K/mm3 (0.0-0.1) 09/29/20 05:20 Add Manual Diff Complete 09/19/20 05:13 Total Counted 100 09/19/20 05:13 Seg Neutrophils % 72.3 % (40.0-70.0) H 09/29/20 05:20 Seg Neuts % (Manual) 87.0 % (40.0-70.0) H 09/19/20 05:13 Band Neutrophils % 1.0 % 09/19/20 05:13 Lymphocytes % (Manual) 5.0 % (13.4-35.0) L 09/19/20 05:13 Monocytes % (Manual) 7.0 % (0.0-7.3) 09/19/20 05:13 Eosinophils % (Manual) 2.0 % (0.0-4.3) 09/07/20 14:00 Metamyelocytes % 2.0 % 09/08/20 Unknown Nucleated RBC % Not Reportable 09/19/20 05:13 Seg Neutrophils # 7.7 K/mm3 (1.8-7.7) 09/29/20 05:20 Seg Neutrophils # Man 19.8 K/mm3 (1.8-7.7) H 09/19/20 05:13 Band Neutrophils # 0.2 K/mm3 09/19/20 05:13 Lymphocytes # (Manual) 1.1 K/mm3 (1.2-5.4) L 09/19/20 05:13 Abs React Lymphs (Man) 0.0 K/mm3 09/19/20 05:13 Monocytes # (Manual) 1.6 K/mm3 (0.0-0.8) H 09/19/20 05:13 Eosinophils # (Manual) 0.0 K/mm3 (0.0-0.4) 09/19/20 05:13 Basophils # (Manual) 0.0 K/mm3 (0.0-0.1) 09/19/20 05:13 Metamyelocytes # 0.0 K/mm3 09/19/20 05:13 Myelocytes # 0.0 K/mm3 09/19/20 05:13 Promyelocytes # 0.0 K/mm3 09/19/20 05:13 Blast Cells # 0.0 K/mm3 09/19/20 05:13 WBC Morphology Not Reportable 09/19/20 05:13 Hypersegmented Neuts Not Reportable 09/19/20 05:13 Hyposegmented Neuts Not Reportable 09/19/20 05:13 Hypogranular Neuts Not Reportable 09/19/20 05:13 Smudge Cells Not Reportable 09/19/20 05:13 Toxic Granulation Not Reportable 09/19/20 05:13 Toxic Vacuolation Not Reportable 09/19/20 05:13 Dohle Bodies Not Reportable 09/19/20 05:13 Pelger-Huet Anomaly Not Reportable 09/19/20 05:13 Justus Rods Not Reportable 09/19/20 05:13 Platelet Estimate Consistent w auto 09/19/20 05:13 Clumped Platelets Not Reportable 09/19/20 05:13 Plt Clumps, EDTA Not Reportable 09/19/20 05:13 Large Platelets Not Reportable 09/19/20 05:13 Giant Platelets Not Reportable 09/19/20 05:13 Platelet Satelliting Not Reportable 09/19/20 05:13 Plt Morphology Comment Not Reportable 09/19/20 05:13 RBC Morphology Not Reportable 09/19/20 05:13 Dimorphic RBCs Not Reportable 09/19/20 05:13 Polychromasia Not Reportable 09/19/20 05:13 Hypochromasia Not Reportable 09/19/20 05:13 Poikilocytosis Not Reportable 09/19/20 05:13 Anisocytosis 1+ 09/19/20 05:13 Microcytosis Not Reportable 09/19/20 05:13 Macrocytosis Not Reportable 09/19/20 05:13 Spherocytes Not Reportable 09/19/20 05:13 Pappenheimer Bodies Not Reportable 09/19/20 05:13 Sickle Cells Not Reportable 09/19/20 05:13 Target Cells Not Reportable 09/19/20 05:13 Tear Drop Cells Not Reportable 09/19/20 05:13 Ovalocytes Not Reportable 09/19/20 05:13 Helmet Cells Not Reportable 09/19/20 05:13 [place] Bodies Not Reportable 09/19/20 05:13 [place] Rings Not Reportable 09/19/20 05:13 Manjit Cells Not Reportable 09/19/20 05:13 Bite Cells Not Reportable 09/19/20 05:13 Crenated Cell Not Reportable 09/19/20 05:13 Elliptocytes Not Reportable 09/19/20 05:13 Acanthocytes (Spur) Not Reportable 09/19/20 05:13 Rouleaux Not Reportable 09/19/20 05:13 Hemoglobin C Crystals Not Reportable 09/19/20 05:13 Schistocytes Not Reportable 09/19/20 05:13 Malaria parasites Not Reportable 09/19/20 05:13 [place] Bodies Not Reportable 09/19/20 05:13 Hem Pathologist Commnt No 09/19/20 05:13 PT 16.1 Sec. (12.2-14.9) H 09/12/20 04:00 INR 1.31 (0.87-1.13) H 09/12/20 04:00 APTT 32.4 Sec. (24.2-36.6) 09/09/20 10:00 D-Dimer 8315.85 ng/mlDDU (0-234) H 09/07/20 14:00 ABG pH 7.442 (7.320-7.450) 09/14/20 03:54 POC ABG pCO2 42.3 mmHg (32.0-48.0) 09/14/20 03:54 ABG pCO2 33.4 mm Hg 09/11/20 05:40 POC ABG pO2 71.1 mmHg (83-108) L 09/14/20 03:54 ABG pO2 112.1 mm Hg (80.0-90.0) H 09/11/20 05:40 POC ABG HCO3 28.2 09/14/20 03:54 ABG HCO3 28.1 mmol/L (20.0-26.0) H 09/11/20 05:40 ABG O2 Saturation 98.4 % (95.0-99.0) 09/11/20 05:40 ABG O2 Content 11.6 (0.0-44) 09/11/20 05:40 POC ABG Base Excess 3.7 09/14/20 03:54 ABG Base Excess 5.4 mmol/L (-2.0-3.0) H 09/11/20 05:40 ABG Hemoglobin 10.3 (12.0-17.5) L 09/14/20 03:54 ABG Oxyhemoglobin 93.2 (94-98) L 09/13/20 04:47 ABG Carboxyhemoglobin 1.2 % (0.0-5.0) 09/11/20 05:40 ABG Methemoglobin 0.3 (0.0-1.5) 09/13/20 04:47 ABG Sodium 135.2 mmol/L (136.0-145.0) L 09/14/20 03:54 ABG Potassium 3.8 mmol/L (3.40-4.50) 09/14/20 03:54 ABG Chloride 98.0 mmol/L (98-107) 09/14/20 03:54 ABG Glucose 281 mg/dL (65-95) H 09/14/20 03:54 Oxyhemoglobin 96.8 % (95.0-99.0) 09/11/20 05:40 Carboxyhemoglobin 0.4 (0.5-1.5) L 09/13/20 04:47 FiO2 30 09/14/20 03:54 Sodium 137 mmol/L (137-145) 09/29/20 05:20 Potassium 3.8 mmol/L (3.6-5.0) 09/29/20 05:20 Chloride 99.4 mmol/L (98-107) 09/29/20 05:20 Carbon Dioxide 27 mmol/L (22-30) 09/29/20 05:20 Anion Gap 14 mmol/L 09/29/20 05:20 BUN 47 mg/dL (9-20) H 09/29/20 05:20 Creatinine 4.2 mg/dL (0.8-1.3) H 09/29/20 05:20 Estimated GFR 17 ml/min 09/29/20 05:20 BUN/Creatinine Ratio 11 % 09/29/20 05:20 Glucose 289 mg/dL (75-100) H 09/29/20 05:20 POC Glucose 283 mg/dL (70-105) H 09/30/20 05:15 Lactic Acid 2.90 mmol/L (0.7-2.0) H* 09/17/20 13:52 Calcium 9.6 mg/dL (8.4-10.2) 09/29/20 05:20 Phosphorus 8.00 mg/dL (2.5-4.5) H 09/08/20 12:02 Magnesium 1.80 mg/dL (1.7-2.3) 09/08/20 12:02 Ferritin > 2000.0 ng/mL (30.0-300.0) H 09/07/20 14:00 Total Bilirubin 0.50 mg/dL (0.1-1.2) 09/25/20 05:18 Direct Bilirubin 0.5 mg/dL (0-0.2) H 09/08/20 05:00 Indirect Bilirubin 0.5 mg/dL 09/08/20 05:00 AST 55 units/L (5-40) H 09/25/20 05:18 ALT 74 units/L (7-56) H 09/25/20 05:18 Alkaline Phosphatase 81 units/L (35-129) 09/25/20 05:18 Ammonia 50.0 umol/L (25-60) 09/07/20 14:00 Lactate Dehydrogenase 882 units/L (91-180) H 09/07/20 14:00 Total Creatine Kinase 477 units/L (55-170) H 09/07/20 14:00 Troponin T 0.076 ng/mL (0.00-0.029) H 09/07/20 14:00 C-Reactive Protein 1.10 mg/dL (0.00-1.30) 09/07/20 14:00 Total Protein 7.0 g/dL (6.3-8.2) 09/25/20 05:18 Albumin 2.6 g/dL (3.9-5) L 09/25/20 05:18 Albumin/Globulin Ratio 0.6 % 09/25/20 05:18 Triglycerides 220 mg/dL (2-149) H 09/12/20 Unknown Procalcitonin 1.52 ng/mL (<0.15) 09/17/20 13:02 TSH 2.290 mlU/mL (0.270-4.200) 09/07/20 14:00 Arterial Blood Glucose 281 mg/dL (65-95) H 09/14/20 03:54 Arterial Blood Ionized Calcium 4.6 mg/dL (4.6-5.3) 09/14/20 03:54 Urine Color Straw (Yellow) 09/07/20 13:08 Urine Turbidity Slightly-cloudy (Clear) 09/07/20 13:08 Urine pH 8.0 (5.0-7.0) H 09/07/20 13:08 Ur Specific [place] 1.006 (1.003-1.030) 09/07/20 13:08 Urine Protein 100 mg/dl mg/dL (Negative) 09/07/20 13:08 Urine Glucose (UA) Neg mg/dL (Negative) 09/07/20 13:08 Urine Ketones Neg mg/dL (Negative) 09/07/20 13:08 Urine Blood Neg (Negative) 09/07/20 13:08 Urine Nitrite Neg (Negative) 09/07/20 13:08 Urine Bilirubin Neg (Negative) 09/07/20 13:08 Urine Urobilinogen < 2.0 mg/dL (<2.0) 09/07/20 13:08 Ur Leukocyte Esterase Neg (Negative) 09/07/20 13:08 Urine WBC (Auto) 4.0 /HPF (0.0-6.0) 09/07/20 13:08 Urine RBC (Auto) 18.0 /HPF (0.0-6.0) 09/07/20 13:08 U Epithel Cells (Auto) 1.0 /HPF (0-13.0) 09/07/20 13:08 Urine Mucus Few /HPF 09/07/20 13:08 Urine Sperm 3+ /HPF (PHYSIATRIST) 09/07/20 13:08 Urine Creatinine 182.4 mg/dL (0.1-20.0) H 09/08/20 Unknown Urine Sodium 40 mmol/L 09/08/20 Unknown Salicylates < 0.3 mg/dL (2.8-20.0) L 09/07/20 14:00 Acetaminophen 5.0 ug/mL (10.0-30.0) L 09/07/20 14:00 Plasma/Serum Alcohol < 0.01 % (0-0.07) 09/07/20 14:00 Coronavirus (PCR) Negative (Negative) 09/19/20 Unknown Hepatitis A IgM Ab Non-reactive (NonReactive) 09/07/20 14:00 Hep Bs Antigen Non-reactive (Negative) 09/07/20 14:00 Hep B Core IgM Ab Non-reactive (NonReactive) 09/07/20 14:00 Hepatitis C Antibody Non-reactive (NonReactive) 09/07/20 14:00 HIV 1&2 Antibody Rapid Non react (Non React) 09/07/20 14:34 HIV P24 Antigen Non react (Non React) 09/07/20 14:34 Blood Type O POSITIVE 09/09/20 10:00 Antibody Screen Negative 09/07/20 14:00 Mae/IV: Voiding Method Condom Catheter IV Catheter Type [Right Triple Lumen Cath Femoral] IV Catheter Type [Left Peripheral IV Antecubital] IV Catheter Type [Left Hand] Peripheral IV IV Catheter Type [Right Peripheral IV Antecubital] Active Medications - Current Medications Current Medications: Generic Name Dose Route Start Last Admin Trade Name Freq PRN Reason Stop Dose Admin Acetaminophen 400 mg 09/10/20 20:50 09/14/20 23:38 Acetaminophen 325 Mg/10.15 Ml Oral Liqd Unit Dose PO 400 mg Q4HR PRN Administration Non Cardiac Pain or Temp>100.5 Lipase/Protease/Amylase 1 each 09/09/20 09:40 Lipase 10,500/Protease 25,000/Amylase 43,750 (Units) Dr Armenta FEEDTUBE PRN PRN For Clogged Feeding Tube Hydralazine HCl 50 mg 09/23/20 14:00 09/30/20 05:34 Hydralazine 25 Mg Tab PO Not Given Q8HR TAYLOR Hydrophilic Ointment 1 applic 09/07/20 13:08 Lip Therapy Vaseline TP Q2HR PRN Dry Lips Sodium Chloride 100 mls @ 999 mls/hr 09/09/20 13:36 Nacl 0.9% IV JAYJAY PRN Hypotension Insulin Glargine 20 units 09/30/20 10:00 09/30/20 10:09 Insulin Glargine 100 Units/Ml SUB-Q 20 units DAILY TAYLOR Administration Insulin Human Lispro 0 unit 09/12/20 12:00 09/30/20 05:31 Insulin Lispro 100 Unit/Ml SUB-Q 6 unit Q6HR TAYLOR Administration Protocol Lansoprazole 30 mg 09/11/20 11:00 09/30/20 10:09 Lansoprazole 30 Mg Solutab FEEDTUBE 30 mg BID TAYLOR Administration Levetiracetam 1,500 mg 09/28/20 10:00 09/30/20 10:08 Levetiracetam 500 Mg/5 Ml Oral Liqd PO 1,500 mg BID TAYLOR Administration Lorazepam 2 mg 09/08/20 00:14 09/14/20 13:36 Lorazepam 2 Mg/Ml Vial IV 2 mg Q4H PRN Administration Seizures Multi-Ingred Cream/Lotion/Oil/Oint 1 applic 09/07/20 13:08 09/20/20 10:50 Mineral Oil/Petrolatum, White Ophth Oint 3.5 Gm OU 1 applic Q4HR PRN Administration Dry Eye(s) Multivitamins 5 ml 09/09/20 12:00 09/29/20 10:15 Multivitamins 5 Ml Oral Liquid PO 5 ml QDAY TAYLOR Administration Ondansetron HCl 4 mg 09/07/20 17:55 09/19/20 04:00 Ondansetron 4 Mg/2 Ml Inj IV 4 mg Q8H PRN Administration Nausea And Vomiting Senna/Docusate Sodium 2 tab 09/20/20 11:00 Sennosides/Docusate Sodium 8.6/50 Mg Tab PO BID PRN Laxative Effect Simple Syrup 15 ml 09/09/20 09:40 09/17/20 17:43 Simple Syrup 15 Ml FEEDTUBE 15 ml PRN PRN Administration Hypoglycemia Simple Syrup 30 ml 09/09/20 09:40 Simple Syrup 15 Ml FEEDTUBE PRN PRN Hypoglycemia Sodium Bicarbonate 325 mg 09/09/20 09:40 Sodium Bicarbonate 325 Mg Tab FEEDTUBE PRN PRN For Clogged Feeding Tube Sodium Chloride 10 ml 09/07/20 22:00 09/30/20 10:10 Sodium Chloride 0.9% 10 Ml Flush Syringe IV 10 ml BID TAYLOR Administration Sodium Chloride 10 ml 09/07/20 17:55 Sodium Chloride 0.9% 10 Ml Flush Syringe IV PRN PRN LINE FLUSH Valproic Acid 1,000 mg 09/28/20 10:00 09/30/20 10:09 Valproic Acid 250 Mg/5 Ml Oral Liqd FEEDTUBE 1,000 mg BID TAYLOR Administration Nutrition/Malnutrition Assess - Dietary Evaluation Nutrition/Malnutrition Findings: Nutrition Notes Start: 09/08/20 12:01 Freq: Status: Active Protocol: Document 09/29/20 11:00 AL (Rec: 09/29/20 11:49 AL [id number]) Co-Sign 09/29/20 11:00 LP Nutrition Notes Initial or Follow up Reassessment Current Diagnosis Acute Kidney Injury, Respiratory Failure Other Pertinent Diagnosis on HD, cardiac arrest, COVID ( +), metabolic encephalopathy, pneu Current Diet Nepro 1.8 at 45 mL/hr (goal rate) Labs/Tests BUN 47 Cr 4.2 BG 289 Pertinent Medications Humalog Lantus Height 6 ft Weight 145.18 kg [place] Body Weight (kg) 80.90 BMI 43.4 Weight change and time frame wt change of 5.2 kg noted (3.6 %). Weight Status Morbidly Obese Subjective/Other Information Pt is tolerating TF at goal rate (45 ml/hr). Percent of energy/protein needs met: 99%/43% Burn Absent Trauma Absent GI Symptoms None Current % PO Negligible Minimum of two criteria No physical signs of malnutrition #2 Nutrition Diagnosis Increased nutrient needs ( specify in comment below) Diagnosis Progress(for reassessment Continues documentation) #1 Nutrition Diagnosis Inadequate oral intake Diagnosis Progress(for reassessment Continues documentation) Is patient on ventilator? Yes Is Patient Ambulatory and/or Out of Bed No REE-([facility]-confined to bed) 2740.164 Kcal/Kg value to use for calculation 13 Approximate Energy Requirements Using 1887 kcal/Kg Calculation Used for Recommendations Kcal/kg Additional Notes PRO needs: >202g (> 2.5g/kg IBW 80.9kg) Fluid needs are 1000-1500ml Nutrition Intervention Change Diet Order: TF Nutrition Support: Nepro at 45ml/hr Flush 200ml q4h for hypernatremia. 120ml q4h once resolved Kcal 1,944 Protein (gm) 87 Fluid (mL) 785 Goal #1 Meet kcal and protein needs as best as possible via TF Anticipated Discharge Needs: TF Follow-Up By: 10/03/20 Additional Comments Follow for stable TF
--- NOTE | 2020-09-30 13:20 | Progress Note ---
Assessment and Plan - Patient Problems (1) Chronic respiratory failure Current Visit: Yes Status: Acute (2) COVID-19 Current Visit: Yes Status: Acute (3) Cardiac arrest Current Visit: Yes Status: Acute (4) Morbid obesity Current Visit: Yes Status: Acute (5) Transaminitis Current Visit: Yes Status: Acute Subjective Principal diagnosis: Abnormal LFTs, s/p cardiac arrest, acute kidney injury with ATN Interval history: on tpiece tolerating it well Objective Vital Signs - 12hr 09/30/20 09/30/20 09/30/20 01:30 01:45 02:00 Temperature Pulse Rate 75 73 79 Pulse Rate [ From Monitor] Respiratory 30 H 18 25 H Rate Blood Pressure 94/52 94/49 111/55 O2 Sat by Pulse 100 100 100 Oximetry O2 Sat by Pulse Oximetry [ Assessment] 09/30/20 09/30/20 09/30/20 02:14 02:15 02:30 Temperature Pulse Rate 77 76 Pulse Rate [ From Monitor] Respiratory 32 H 32 H Rate Blood Pressure 94/49 100/53 O2 Sat by Pulse 100 100 Oximetry O2 Sat by Pulse 100 Oximetry [ Assessment] 09/30/20 09/30/20 09/30/20 02:45 03:00 03:15 Temperature Pulse Rate 75 74 74 Pulse Rate [ From Monitor] Respiratory 30 H 30 H 29 H Rate Blood Pressure 113/54 112/54 108/57 O2 Sat by Pulse 100 100 100 Oximetry O2 Sat by Pulse Oximetry [ Assessment] 09/30/20 09/30/20 09/30/20 03:21 03:30 03:45 Temperature 97.7 F Pulse Rate 74 75 Pulse Rate [ From Monitor] Respiratory 30 H 29 H Rate Blood Pressure 121/53 107/53 O2 Sat by Pulse 100 100 Oximetry O2 Sat by Pulse Oximetry [ Assessment] 09/30/20 09/30/20 09/30/20 04:00 04:15 04:21 Temperature Pulse Rate 76 76 76 Pulse Rate [ 76 From Monitor] Respiratory 29 H 31 H 31 H Rate Blood Pressure 110/53 102/53 100/53 O2 Sat by Pulse 100 100 98 Oximetry O2 Sat by Pulse Oximetry [ Assessment] 09/30/20 09/30/20 09/30/20 04:30 04:45 05:00 Temperature Pulse Rate 76 76 75 Pulse Rate [ From Monitor] Respiratory 31 H 31 H 31 H Rate Blood Pressure 108/52 106/50 112/52 O2 Sat by Pulse 97 96 96 Oximetry O2 Sat by Pulse Oximetry [ Assessment] 09/30/20 09/30/20 09/30/20 05:15 05:30 05:34 Temperature Pulse Rate 75 78 Pulse Rate [ From Monitor] Respiratory 31 H 32 H Rate Blood Pressure 110/58 109/54 109/54 O2 Sat by Pulse 97 97 Oximetry O2 Sat by Pulse Oximetry [ Assessment] 09/30/20 09/30/20 09/30/20 05:45 06:00 06:15 Temperature Pulse Rate 77 79 76 Pulse Rate [ From Monitor] Respiratory 31 H 33 H 30 H Rate Blood Pressure 106/54 106/59 113/53 O2 Sat by Pulse 99 100 100 Oximetry O2 Sat by Pulse Oximetry [ Assessment] 09/30/20 09/30/20 09/30/20 06:30 06:45 07:00 Temperature 98.2 F Pulse Rate 76 76 76 Pulse Rate [ From Monitor] Respiratory 31 H 30 H 30 H Rate Blood Pressure 110/54 108/57 112/56 O2 Sat by Pulse 100 100 100 Oximetry O2 Sat by Pulse Oximetry [ Assessment] 09/30/20 09/30/20 09/30/20 07:15 07:30 07:45 Temperature Pulse Rate 75 77 76 Pulse Rate [ From Monitor] Respiratory 30 H 31 H 30 H Rate Blood Pressure 110/59 113/56 109/54 O2 Sat by Pulse 100 99 99 Oximetry O2 Sat by Pulse Oximetry [ Assessment] 09/30/20 09/30/20 09/30/20 08:00 08:15 08:30 Temperature Pulse Rate 75 75 79 Pulse Rate [ 76 From Monitor] Respiratory 30 H 30 H 28 H Rate Blood Pressure 115/55 110/53 102/55 O2 Sat by Pulse 99 99 97 Oximetry O2 Sat by Pulse Oximetry [ Assessment] 09/30/20 09/30/20 09/30/20 08:44 08:45 09:00 Temperature Pulse Rate 77 76 Pulse Rate [ From Monitor] Respiratory 39 H 38 H Rate Blood Pressure 115/56 116/56 O2 Sat by Pulse 99 98 99 Oximetry O2 Sat by Pulse 99 Oximetry [ Assessment] 09/30/20 09/30/20 09/30/20 09:15 09:30 09:45 Temperature Pulse Rate 76 76 75 Pulse Rate [ From Monitor] Respiratory 38 H 36 H 38 H Rate Blood Pressure 114/55 118/55 120/55 O2 Sat by Pulse 99 98 98 Oximetry O2 Sat by Pulse Oximetry [ Assessment] 09/30/20 09/30/20 09/30/20 10:00 10:15 10:30 Temperature Pulse Rate 76 74 74 Pulse Rate [ From Monitor] Respiratory 36 H 36 H 35 H Rate Blood Pressure 111/54 120/56 124/61 O2 Sat by Pulse 99 99 98 Oximetry O2 Sat by Pulse Oximetry [ Assessment] 09/30/20 09/30/20 09/30/20 10:45 11:00 11:15 Temperature Pulse Rate 74 73 72 Pulse Rate [ From Monitor] Respiratory 35 H 34 H 35 H Rate Blood Pressure 121/54 121/54 116/56 O2 Sat by Pulse 99 99 99 Oximetry O2 Sat by Pulse Oximetry [ Assessment] 09/30/20 09/30/20 09/30/20 11:30 11:45 12:00 Temperature 99.3 F Pulse Rate 73 72 73 Pulse Rate [ 72 From Monitor] Respiratory 36 H 35 H 30 H Rate Blood Pressure 111/55 109/54 114/54 O2 Sat by Pulse 99 99 99 Oximetry O2 Sat by Pulse Oximetry [ Assessment] 09/30/20 09/30/20 09/30/20 12:15 12:30 12:45 Temperature Pulse Rate 73 73 73 Pulse Rate [ From Monitor] Respiratory 34 H 35 H 36 H Rate Blood Pressure 109/53 118/57 111/52 O2 Sat by Pulse 99 99 99 Oximetry O2 Sat by Pulse Oximetry [ Assessment] 09/30/20 13:00 Temperature Pulse Rate 73 Pulse Rate [ From Monitor] Respiratory 35 H Rate Blood Pressure 110/53 O2 Sat by Pulse 99 Oximetry O2 Sat by Pulse Oximetry [ Assessment] Constitutional: comatose, other (morbidly obese t piece sp trach) Eyes: non-icteric ENT: other (orally intubated and sedated) Neck: supple Effort: normal Ascultation: Bilateral: diminished breath sounds Percussion: Bilateral: not dull Cardiovascular: other (bradycardic) Gastrointestinal: soft CBC and BMP: 09/30/20 06:57 09/29/20 05:20 ABG, PT/INR, D-dimer: ABG ABG pH 7.442 (7.320-7.450) 09/14/20 03:54 POC ABG pCO2 42.3 mmHg (32.0-48.0) 09/14/20 03:54 ABG pCO2 33.4 mm Hg 09/11/20 05:40 POC ABG pO2 71.1 mmHg (83-108) L 09/14/20 03:54 ABG pO2 112.1 mm Hg (80.0-90.0) H 09/11/20 05:40 POC ABG HCO3 28.2 09/14/20 03:54 ABG O2 Saturation 98.4 % (95.0-99.0) 09/11/20 05:40 PT/INR, D-dimer PT 16.1 Sec. (12.2-14.9) H 09/12/20 04:00 INR 1.31 (0.87-1.13) H 09/12/20 04:00 D-Dimer 8315.85 ng/mlDDU (0-234) H 09/07/20 14:00 Abnormal lab findings: Abnormal Labs 09/07/20 09/07/20 09/07/20 13:08 14:00 14:00 WBC 15.7 H RBC Hgb 10.2 L Hct 32.5 L MCHC 31 L RDW 17.5 H Lymph % (Auto) [place] % (Auto) Lymph # (Auto) [place] # (Auto) Seg Neutrophils % Seg Neuts % (Manual) 72.0 H Lymphocytes % (Manual) Monocytes % (Manual) 8.0 H Nucleated RBC % Seg Neutrophils # Seg Neutrophils # Man 11.3 H Lymphocytes # (Manual) Monocytes # (Manual) 1.3 H PT INR D-Dimer 8315.85 H ABG pH POC ABG pCO2 POC ABG pO2 ABG pO2 ABG HCO3 ABG Base Excess ABG Hemoglobin ABG Oxyhemoglobin ABG Sodium ABG Potassium ABG Chloride ABG Glucose Carboxyhemoglobin Sodium Potassium Chloride Carbon Dioxide BUN Creatinine Glucose POC Glucose Lactic Acid Calcium Phosphorus Ferritin Total Bilirubin Direct Bilirubin AST ALT Lactate Dehydrogenase Total Creatine Kinase Troponin T Total Protein Albumin Triglycerides Arterial Blood Glucose Arterial Blood Ionized Calcium Urine pH 8.0 H Urine Creatinine Salicylates Acetaminophen Coronavirus (PCR) 09/07/20 09/07/20 09/07/20 14:00 14:00 14:00 WBC RBC Hgb Hct MCHC RDW Lymph % (Auto) [place] % (Auto) Lymph # (Auto) [place] # (Auto) Seg Neutrophils % Seg Neuts % (Manual) Lymphocytes % (Manual) Monocytes % (Manual) Nucleated RBC % Seg Neutrophils # Seg Neutrophils # Man Lymphocytes # (Manual) Monocytes # (Manual) PT INR D-Dimer ABG pH POC ABG pCO2 POC ABG pO2 ABG pO2 ABG HCO3 ABG Base Excess ABG Hemoglobin ABG Oxyhemoglobin ABG Sodium ABG Potassium ABG Chloride ABG Glucose Carboxyhemoglobin Sodium Potassium Chloride Carbon Dioxide BUN Creatinine Glucose POC Glucose Lactic Acid 4.30 H* Calcium Phosphorus Ferritin > 2000.0 H Total Bilirubin Direct Bilirubin AST ALT Lactate Dehydrogenase 882 H Total Creatine Kinase 477 H Troponin T 0.076 H Total Protein Albumin Triglycerides Arterial Blood Glucose Arterial Blood Ionized Calcium Urine pH Urine Creatinine Salicylates Acetaminophen Coronavirus (PCR) 09/07/20 09/07/20 09/07/20 14:00 14:00 14:00 WBC RBC Hgb Hct MCHC RDW Lymph % (Auto) [place] % (Auto) Lymph # (Auto) [place] # (Auto) Seg Neutrophils % Seg Neuts % (Manual) Lymphocytes % (Manual) Monocytes % (Manual) Nucleated RBC % Seg Neutrophils # Seg Neutrophils # Man Lymphocytes # (Manual) Monocytes # (Manual) PT INR D-Dimer ABG pH POC ABG pCO2 POC ABG pO2 ABG pO2 ABG HCO3 ABG Base Excess ABG Hemoglobin ABG Oxyhemoglobin ABG Sodium ABG Potassium ABG Chloride ABG Glucose Carboxyhemoglobin Sodium Potassium Chloride Carbon Dioxide BUN Creatinine 1.8 H Glucose POC Glucose Lactic Acid Calcium Phosphorus Ferritin Total Bilirubin Direct Bilirubin AST 310 H ALT 339 H Lactate Dehydrogenase Total Creatine Kinase Troponin T Total Protein Albumin 3.6 L Triglycerides Arterial Blood Glucose Arterial Blood Ionized Calcium Urine pH Urine Creatinine Salicylates < 0.3 L Acetaminophen 5.0 L Coronavirus (PCR) 09/07/20 09/08/20 09/08/20 14:26 04:00 04:17 WBC RBC Hgb Hct MCHC RDW Lymph % (Auto) [place] % (Auto) Lymph # (Auto) [place] # (Auto) Seg Neutrophils % Seg Neuts % (Manual) Lymphocytes % (Manual) Monocytes % (Manual) Nucleated RBC % Seg Neutrophils # Seg Neutrophils # Man Lymphocytes # (Manual) Monocytes # (Manual) PT INR D-Dimer ABG pH 7.037 L 7.095 L POC ABG pCO2 92.4 H 68.0 H POC ABG pO2 130.8 H 43.5 L ABG pO2 ABG HCO3 ABG Base Excess ABG Hemoglobin 11.3 L 10.6 L ABG Oxyhemoglobin 70.8 L ABG Sodium ABG Potassium 7.0 H ABG Chloride 108.0 H ABG Glucose Carboxyhemoglobin 0.3 L Sodium Potassium 8.4 H* D Chloride Carbon Dioxide 17 L D BUN 38 H Creatinine 3.9 H D Glucose POC Glucose Lactic Acid Calcium 7.7 L D Phosphorus Ferritin Total Bilirubin Direct Bilirubin AST ALT Lactate Dehydrogenase Total Creatine Kinase Troponin T Total Protein Albumin Triglycerides Arterial Blood Glucose Arterial Blood Ionized Calcium 4.5 L Urine pH Urine Creatinine Salicylates Acetaminophen Coronavirus (PCR) 09/08/20 09/08/20 09/08/20 05:00 05:25 12:02 WBC RBC Hgb Hct MCHC RDW Lymph % (Auto) [place] % (Auto) Lymph # (Auto) [place] # (Auto) Seg Neutrophils % Seg Neuts % (Manual) Lymphocytes % (Manual) Monocytes % (Manual) Nucleated RBC % Seg Neutrophils # Seg Neutrophils # Man Lymphocytes # (Manual) Monocytes # (Manual) PT INR D-Dimer ABG pH 7.088 L POC ABG pCO2 69.1 H POC ABG pO2 35.2 L ABG pO2 ABG HCO3 ABG Base Excess ABG Hemoglobin 10.9 L ABG Oxyhemoglobin 57.1 L ABG Sodium ABG Potassium 7.0 H ABG Chloride 108.0 H ABG Glucose Carboxyhemoglobin 0.4 L Sodium Potassium 8.1 H* Chloride Carbon Dioxide 17 L BUN 38 H Creatinine 3.7 H Glucose POC Glucose Lactic Acid Calcium 8.0 L Phosphorus 8.00 H Ferritin Total Bilirubin Direct Bilirubin 0.5 H AST 3696 H ALT 3331 H Lactate Dehydrogenase Total Creatine Kinase Troponin T Total Protein Albumin 3.5 L Triglycerides Arterial Blood Glucose Arterial Blood Ionized Calcium 4.4 L Urine pH Urine Creatinine Salicylates Acetaminophen Coronavirus (PCR) 09/08/20 09/08/20 09/08/20 16:31 22:36 Unknown WBC RBC Hgb Hct MCHC RDW Lymph % (Auto) [place] % (Auto) Lymph # (Auto) [place] # (Auto) Seg Neutrophils % Seg Neuts % (Manual) Lymphocytes % (Manual) Monocytes % (Manual) Nucleated RBC % Seg Neutrophils # Seg Neutrophils # Man Lymphocytes # (Manual) Monocytes # (Manual) PT INR D-Dimer ABG pH POC ABG pCO2 POC ABG pO2 ABG pO2 ABG HCO3 ABG Base Excess ABG Hemoglobin ABG Oxyhemoglobin ABG Sodium ABG Potassium ABG Chloride ABG Glucose Carboxyhemoglobin Sodium Potassium 5.3 H D Chloride Carbon Dioxide BUN Creatinine Glucose POC Glucose 158 H Lactic Acid Calcium Phosphorus Ferritin Total Bilirubin Direct Bilirubin AST ALT Lactate Dehydrogenase Total Creatine Kinase Troponin T Total Protein Albumin Triglycerides Arterial Blood Glucose Arterial Blood Ionized Calcium Urine pH Urine Creatinine Salicylates Acetaminophen Coronavirus (PCR) Positive A 09/08/20 09/08/20 09/08/20 Unknown Unknown Unknown WBC 18.4 H RBC Hgb 10.1 L Hct 32.0 L MCHC RDW 18.2 H Lymph % (Auto) [place] % (Auto) Lymph # (Auto) [place] # (Auto) Seg Neutrophils % Seg Neuts % (Manual) 81.0 H Lymphocytes % (Manual) 2.0 L Monocytes % (Manual) Nucleated RBC % 1.0 H Seg Neutrophils # Seg Neutrophils # Man 14.9 H Lymphocytes # (Manual) 0.4 L Monocytes # (Manual) 1.1 H PT 21.2 H INR 1.83 H D-Dimer ABG pH POC ABG pCO2 POC ABG pO2 ABG pO2 ABG HCO3 ABG Base Excess ABG Hemoglobin ABG Oxyhemoglobin ABG Sodium ABG Potassium ABG Chloride ABG Glucose Carboxyhemoglobin Sodium Potassium Chloride Carbon Dioxide BUN Creatinine Glucose POC Glucose Lactic Acid Calcium Phosphorus Ferritin Total Bilirubin Direct Bilirubin AST ALT Lactate Dehydrogenase Total Creatine Kinase Troponin T Total Protein Albumin Triglycerides Arterial Blood Glucose Arterial Blood Ionized Calcium Urine pH Urine Creatinine 182.4 H Salicylates Acetaminophen Coronavirus (PCR) 09/09/20 09/09/20 09/09/20 03:14 04:20 04:20 WBC 16.3 H RBC 3.12 L Hgb 8.6 L Hct 26.8 L MCHC RDW 18.2 H Lymph % (Auto) 6.3 L [place] % (Auto) 8.8 H Lymph # (Auto) 1.0 L [place] # (Auto) 1.4 H Seg Neutrophils % 84.5 H Seg Neuts % (Manual) Lymphocytes % (Manual) Monocytes % (Manual) Nucleated RBC % Seg Neutrophils # 13.7 H Seg Neutrophils # Man Lymphocytes # (Manual) Monocytes # (Manual) PT INR D-Dimer ABG pH POC ABG pCO2 POC ABG pO2 148.5 H ABG pO2 ABG HCO3 ABG Base Excess ABG Hemoglobin 9.4 L ABG Oxyhemoglobin 98.8 H ABG Sodium 134.8 L ABG Potassium 5.0 H ABG Chloride ABG Glucose 222 H Carboxyhemoglobin 0.1 L Sodium Potassium 5.2 H Chloride Carbon Dioxide BUN 47 H Creatinine 4.3 H Glucose 211 H POC Glucose Lactic Acid Calcium 7.4 L Phosphorus Ferritin Total Bil[place] 45422 H ALT 6206 H Lactate Dehydrogenase Total Creatine Kinase Troponin T Total Protein 5.6 L Albumin 3.0 L Triglycerides Arterial Blood Glucose 222 H Arterial Blood Ionized Calcium 3.8 L Urine pH Urine Creatinine Salicylates Acetaminophen Coronavirus (PCR) 09/09/20 09/09/20 09/09/20 10:00 12:23 18:22 WBC RBC Hgb Hct MCHC RDW Lymph % (Auto) [place] % (Auto) Lymph # (Auto) [place] # (Auto) Seg Neutrophils % Seg Neuts % (Manual) Lymphocytes % (Manual) Monocytes % (Manual) Nucleated RBC % Seg Neutrophils # Seg Neutrophils # Man Lymphocytes # (Manual) Monocytes # (Manual) PT 21.7 H INR 1.90 H D-Dimer ABG pH POC ABG pCO2 POC ABG pO2 ABG pO2 ABG HCO3 ABG Base Excess ABG Hemoglobin ABG Oxyhemoglobin ABG Sodium ABG Potassium ABG Chloride ABG Glucose Carboxyhemoglobin Sodium Potassium Chloride Carbon Dioxide BUN Creatinine Glucose POC Glucose 216 H 211 H Lactic Acid Calcium Phosphorus Ferritin Total Bilirubin Direct Bilirubin AST ALT Lactate Dehydrogenase Total Creatine Kinase Troponin T Total Protein Albumin Triglycerides Arterial Blood Glucose Arterial Blood Ionized Calcium Urine pH Urine Creatinine Salicylates Acetaminophen Coronavirus (PCR) 09/10/20 09/10/20 09/10/20 04:00 04:05 04:05 WBC 15.0 H RBC 3.06 L Hgb 8.6 L Hct 25.8 L MCHC RDW 18.0 H Lymph % (Auto) [place] % (Auto) Lymph # (Auto) [place] # (Auto) Seg Neutrophils % Seg Neuts % (Manual) 86.0 H Lymphocytes % (Manual) 6.0 L Monocytes % (Manual) 8.0 H Nucleated RBC % Seg Neutrophils # Seg Neutrophils # Man 12.9 H Lymphocytes # (Manual) 0.9 L Monocytes # (Manual) 1.2 H PT 18.4 H INR 1.54 H D-Dimer ABG pH POC ABG pCO2 POC ABG pO2 ABG pO2 ABG HCO3 ABG Base Excess ABG Hemoglobin ABG Oxyhemoglobin ABG Sodium ABG Potassium ABG Chloride ABG Glucose Carboxyhemoglobin Sodium 134 L Potassium Chloride 93.7 L Carbon Dioxide BUN 46 H Creatinine 3.6 H Glucose 275 H POC Glucose Lactic Acid Calcium 7.7 L Phosphorus Ferritin Total Bilirubin 1.30 H Direct Bilirubin AST 5899 H ALT 6440 H Lactate Dehydrogenase Total Creatine Kinase Troponin T Total Protein 5.9 L Albumin 3.3 L Triglycerides Arterial Blood Glucose Arterial Blood Ionized Calcium Urine pH Urine Creatinine Salicylates Acetaminophen Coronavirus (PCR) 09/10/20 09/10/20 09/10/20 04:35 12:06 17:42 WBC RBC Hgb Hct MCHC RDW Lymph % (Auto) [place] % (Auto) Lymph # (Auto) [place] # (Auto) Seg Neutrophils % Seg Neuts % (Manual) Lymphocytes % (Manual) Monocytes % (Manual) Nucleated RBC % Seg Neutrophils # Seg Neutrophils # Man Lymphocytes # (Manual) Monocytes # (Manual) PT INR D-Dimer ABG pH 7.464 H POC ABG pCO2 POC ABG pO2 ABG pO2 ABG HCO3 ABG Base Excess ABG Hemoglobin 9.9 L ABG Oxyhemoglobin ABG Sodium 131.6 L ABG Potassium ABG Chloride 97.0 L ABG Glucose 281 H Carboxyhemoglobin 0.1 L Sodium Potassium Chloride Carbon Dioxide BUN Creatinine Glucose POC Glucose 298 H 340 H Lactic Acid Calcium Phosphorus Ferritin Total Bilirubin Direct Bilirubin AST ALT Lactate Dehydrogenase Total Creatine Kinase Troponin T Total Protein Albumin Triglycerides Arterial Blood Glucose 281 H Arterial Blood Ionized Calcium 3.9 L Urine pH Urine Creatinine Salicylates Acetaminophen Coronavirus (PCR) 09/10/20 09/11/20 09/11/20 23:07 04:44 05:17 WBC RBC Hgb Hct MCHC RDW Lymph % (Auto) [place] % (Auto) Lymph # (Auto) [place] # (Auto) Seg Neutrophils % Seg Neuts % (Manual) Lymphocytes % (Manual) Monocytes % (Manual) Nucleated RBC % Seg Neutrophils # Seg Neutrophils # Man Lymphocytes # (Manual) Monocytes # (Manual) PT 16.9 H INR 1.39 H D-Dimer ABG pH POC ABG pCO2 POC ABG pO2 ABG pO2 ABG HCO3 ABG Base Excess ABG Hemoglobin ABG Oxyhemoglobin ABG Sodium ABG Potassium ABG Chloride ABG Glucose Carboxyhemoglobin Sodium Potassium Chloride Carbon Dioxide BUN Creatinine Glucose POC Glucose 367 H 416 H Lactic Acid Calcium Phosphorus Ferritin Total Bilirubin Direct Bilirubin AST ALT Lactate Dehydrogenase Total Creatine Kinase Troponin T Total Protein Albumin Triglycerides Arterial Blood Glucose Arterial Blood Ionized Calcium Urine pH Urine Creatinine Salicylates Acetaminophen Coronavirus (PCR) 09/11/20 09/11/20 09/11/20 05:40 12:01 17:50 WBC RBC Hgb Hct MCHC RDW Lymph % (Auto) [place] % (Auto) Lymph # (Auto) [place] # (Auto) Seg Neutrophils % Seg Neuts % (Manual) Lymphocytes % (Manual) Monocytes % (Manual) Nucleated RBC % Seg Neutrophils # Seg Neutrophils # Man Lymphocytes # (Manual) Monocytes # (Manual) PT INR D-Dimer ABG pH 7.543 H POC ABG pCO2 POC ABG pO2 ABG pO2 112.1 H ABG HCO3 28.1 H ABG Base Excess 5.4 H ABG Hemoglobin 8.4 L ABG Oxyhemoglobin ABG Sodium ABG Potassium ABG Chloride ABG Glucose Carboxyhemoglobin Sodium Potassium Chloride Carbon Dioxide BUN Creatinine Glucose POC Glucose 418 H 404 H Lactic Acid Calcium Phosphorus Ferritin Total Bilirubin Direct Bilirubin AST ALT Lactate Dehydrogenase Total Creatine Kinase Troponin T Total Protein Albumin Triglycerides Arterial Blood Glucose Arterial Blood Ionized Calcium Urine pH Urine Creatinine Salicylates Acetaminophen Coronavirus (PCR) 09/11/20 09/11/20 09/12/20 23:10 23:43 03:15 WBC RBC Hgb Hct MCHC RDW Lymph % (Auto) [place] % (Auto) Lymph # (Auto) [place] # (Auto) Seg Neutrophils % Seg Neuts % (Manual) Lymphocytes % (Manual) Monocytes % (Manual) Nucleated RBC % Seg Neutrophils # Seg Neutrophils # Man Lymphocytes # (Manual) Monocytes # (Manual) PT INR D-Dimer ABG pH POC ABG pCO2 POC ABG pO2 ABG pO2 ABG HCO3 ABG Base Excess ABG Hemoglobin ABG Oxyhemoglobin ABG Sodium ABG Potassium ABG Chloride ABG Glucose Carboxyhemoglobin Sodium 135 L Potassium Chloride 92.3 L Carbon Dioxide BUN 62 H Creatinine 3.7 H Glucose 406 H POC Glucose 372 H 359 H Lactic Acid Calcium Phosphorus Ferritin Total Bilirubin Direct Bilirubin AST 687 H ALT 3701 H Lactate Dehydrogenase Total Creatine Kinase Troponin T Total Protein 5.8 L Albumin 3.1 L Triglycerides Arterial Blood Glucose Arterial Blood Ionized Calcium Urine pH Urine Creatinine Salicylates Acetaminophen Coronavirus (PCR) 09/12/20 09/12/20 09/12/20 03:18 04:00 04:00 WBC 13.7 H RBC 3.30 L Hgb 9.3 L Hct 27.6 L MCHC RDW 17.5 H Lymph % (Auto) [place] % (Auto) Lymph # (Auto) [place] # (Auto) Seg Neutrophils % Seg Neuts % (Manual) 76.0 H Lymphocytes % (Manual) 11.0 L Monocytes % (Manual) 13.0 H Nucleated RBC % Seg Neutrophils # Seg Neutrophils # Man 10.4 H Lymphocytes # (Manual) Monocytes # (Manual) 1.8 H PT 16.1 H INR 1.31 H D-Dimer ABG pH 7.558 H POC ABG pCO2 POC ABG pO2 74.7 L ABG pO2 ABG HCO3 ABG Base Excess ABG Hemoglobin 9.7 L ABG Oxyhemoglobin ABG Sodium 132.4 L ABG Potassium ABG Chloride 95.0 L ABG Glucose 437 H Carboxyhemoglobin Sodium Potassium Chloride Carbon Dioxide BUN Creatinine Glucose POC Glucose Lactic Acid Calcium Phosphorus Ferritin Total Bilirubin Direct Bilirubin AST ALT Lactate Dehydrogenase Total Creatine Kinase Troponin T Total Protein Albumin Triglycerides Arterial Blood Glucose 437 H Arterial Blood Ionized Calcium 4.3 L Urine pH Urine Creatinine Salicylates Acetaminophen Coronavirus (PCR) 09/12/20 09/12/20 09/12/20 04:21 05:20 06:37 WBC RBC Hgb Hct MCHC RDW Lymph % (Auto) [place] % (Auto) Lymph # (Auto) [place] # (Auto) Seg Neutrophils % Seg Neuts % (Manual) Lymphocytes % (Manual) Monocytes % (Manual) Nucleated RBC % Seg Neutrophils # Seg Neutrophils # Man Lymphocytes # (Manual) Monocytes # (Manual) PT INR D-Dimer ABG pH POC ABG pCO2 POC ABG pO2 ABG pO2 ABG HCO3 ABG Base Excess ABG Hemoglobin ABG Oxyhemoglobin ABG Sodium ABG Potassium ABG Chloride ABG Glucose Carboxyhemoglobin Sodium Potassium Chloride Carbon Dioxide BUN Creatinine Glucose POC Glucose 417 H 397 H 370 H Lactic Acid Calcium Phosphorus Ferritin Total Bilirubin Direct Bilirubin AST ALT Lactate Dehydrogenase Total Creatine Kinase Troponin T Total Protein Albumin Triglycerides Arterial Blood Glucose Arterial Blood Ionized Calcium Urine pH Urine Creatinine Salicylates Acetaminophen Coronavirus (PCR) 09/12/20 09/12/20 09/12/20 11:56 17:14 21:52 WBC RBC Hgb Hct MCHC RDW Lymph % (Auto) [place] % (Auto) Lymph # (Auto) [place] # (Auto) Seg Neutrophils % Seg Neuts % (Manual) Lymphocytes % (Manual) Monocytes % (Manual) Nucleated RBC % Seg Neutrophils # Seg Neutrophils # Man Lymphocytes # (Manual) Monocytes # (Manual) PT INR D-Dimer ABG pH POC ABG pCO2 POC ABG pO2 ABG pO2 ABG HCO3 ABG Base Excess ABG Hemoglobin ABG Oxyhemoglobin ABG Sodium ABG Potassium ABG Chloride ABG Glucose Carboxyhemoglobin Sodium Potassium Chloride Carbon Dioxide BUN Creatinine Glucose POC Glucose 341 H 325 H 285 H Lactic Acid Calcium Phosphorus Ferritin Total Bilirubin Direct Bilirubin AST ALT Lactate Dehydrogenase Total Creatine Kinase Troponin T Total Protein Albumin Triglycerides Arterial Blood Glucose Arterial Blood Ionized Calcium Urine pH Urine Creatinine Salicylates Acetaminophen Coronavirus (PCR) 09/12/20 09/12/20 09/12/20 23:39 Unknown Unknown WBC RBC Hgb Hct MCHC RDW Lymph % (Auto) [place] % (Auto) Lymph # (Auto) [place] # (Auto) Seg Neutrophils % Seg Neuts % (Manual) Lymphocytes % (Manual) Monocytes % (Manual) Nucleated RBC % Seg Neutrophils # Seg Neutrophils # Man Lymphocytes # (Manual) Monocytes # (Manual) PT INR D-Dimer ABG pH POC ABG pCO2 POC ABG pO2 ABG pO2 ABG HCO3 ABG Base Excess ABG Hemoglobin ABG Oxyhemoglobin ABG Sodium ABG Potassium ABG Chloride ABG Glucose Carboxyhemoglobin Sodium 135 L Potassium Chloride 92.2 L Carbon Dioxide BUN 65 H Creatinine 3.5 H Glucose 418 H POC Glucose 338 H Lactic Acid Calcium Phosphorus Ferritin Total Bilirubin Direct Bilirubin AST 553 H ALT 3453 H Lactate Dehydrogenase Total Creatine Kinase Troponin T Total Protein 5.9 L Albumin 3.0 L Triglycerides 220 H Arterial Blood Glucose Arterial Blood Ionized Calcium Urine pH Urine Creatinine Salicylates Acetaminophen Coronavirus (PCR) 09/13/20 09/13/20 09/13/20 04:47 05:24 10:50 WBC RBC Hgb Hct MCHC RDW Lymph % (Auto) [place] % (Auto) Lymph # (Auto) [place] # (Auto) Seg Neutrophils % Seg Neuts % (Manual) Lymphocytes % (Manual) Monocytes % (Manual) Nucleated RBC % Seg Neutrophils # Seg Neutrophils # Man Lymphocytes # (Manual) Monocytes # (Manual) PT INR D-Dimer ABG pH 7.571 H POC ABG pCO2 POC ABG pO2 69.0 L ABG pO2 ABG HCO3 ABG Base Excess ABG Hemoglobin 10.1 L ABG Oxyhemoglobin 93.2 L ABG Sodium 134.0 L ABG Potassium ABG Chloride ABG Glucose 365 H Carboxyhemoglobin 0.4 L Sodium Potassium Chloride 96.6 L Carbon Dioxide 32 H BUN 76 H Creatinine 3.1 H Glucose 395 H POC Glucose 329 H Lactic Acid Calcium Phosphorus Ferritin Total Bilirubin Direct Bilirubin AST ALT Lactate Dehydrogenase Total Creatine Kinase Troponin T Total Protein Albumin Triglycerides Arterial Blood Glucose 365 H Arterial Blood Ionized Calcium Urine pH Urine Creatinine Salicylates Acetaminophen Coronavirus (PCR) 09/13/20 09/13/20 09/13/20 11:39 17:48 23:35 WBC RBC Hgb Hct MCHC RDW Lymph % (Auto) [place] % (Auto) Lymph # (Auto) [place] # (Auto) Seg Neutrophils % Seg Neuts % (Manual) Lymphocytes % (Manual) Monocytes % (Manual) Nucleated RBC % Seg Neutrophils # Seg Neutrophils # Man Lymphocytes # (Manual) Monocytes # (Manual) PT INR D-Dimer ABG pH POC ABG pCO2 POC ABG pO2 ABG pO2 ABG HCO3 ABG Base Excess ABG Hemoglobin ABG Oxyhemoglobin ABG Sodium ABG Potassium ABG Chloride ABG Glucose Carboxyhemoglobin Sodium Potassium Chloride Carbon Dioxide BUN Creatinine Glucose POC Glucose 344 H 286 H 223 H Lactic Acid Calcium Phosphorus Ferritin Total Bilirubin Direct Bilirubin AST ALT Lactate Dehydrogenase Total Creatine Kinase Troponin T Total Protein Albumin Triglycerides Arterial Blood Glucose Arterial Blood Ionized Calcium Urine pH Urine Creatinine Salicylates Acetaminophen Coronavirus (PCR) 09/14/20 09/14/20 09/14/20 03:54 05:34 10:27 WBC RBC Hgb Hct MCHC RDW Lymph % (Auto) [place] % (Auto) Lymph # (Auto) [place] # (Auto) Seg Neutrophils % Seg Neuts % (Manual) Lymphocytes % (Manual) Monocytes % (Manual) Nucleated RBC % Seg Neutrophils # Seg Neutrophils # Man Lymphocytes # (Manual) Monocytes # (Manual) PT INR D-Dimer ABG pH POC ABG pCO2 POC ABG pO2 71.1 L ABG pO2 ABG HCO3 ABG Base Excess ABG Hemoglobin 10.3 L ABG Oxyhemoglobin ABG Sodium 135.2 L ABG Potassium ABG Chloride ABG Glucose 281 H Carboxyhemoglobin Sodium Potassium Chloride 96.6 L Carbon Dioxide BUN 100 H Creatinine 3.9 H Glucose 286 H POC Glucose 252 H Lactic Acid Calcium Phosphorus Ferritin Total Bilirubin Direct Bilirubin AST 145 H ALT 1400 H Lactate Dehydrogenase Total Creatine Kinase Troponin T Total Protein 5.6 L Albumin 2.9 L Triglycerides Arterial Blood Glucose 281 H Arterial Blood Ionized Calcium Urine pH Urine Creatinine Salicylates Acetaminophen Coronavirus (PCR) 09/14/20 09/14/20 09/14/20 11:38 17:52 23:07 WBC RBC Hgb Hct MCHC RDW Lymph % (Auto) [place] % (Auto) Lymph # (Auto) [place] # (Auto) Seg Neutrophils % Seg Neuts % (Manual) Lymphocytes % (Manual) Monocytes % (Manual) Nucleated RBC % Seg Neutrophils # Seg Neutrophils # Man Lymphocytes # (Manual) Monocytes # (Manual) PT INR D-Dimer ABG pH POC ABG pCO2 POC ABG pO2 ABG pO2 ABG HCO3 ABG Base Excess ABG Hemoglobin ABG Oxyhemoglobin ABG Sodium ABG Potassium ABG Chloride ABG Glucose Carboxyhemoglobin Sodium Potassium Chloride Carbon Dioxide BUN Creatinine Glucose POC Glucose 247 H 247 H 256 H Lactic Acid Calcium Phosphorus Ferritin Total Bilirubin Direct Bilirubin AST ALT Lactate Dehydrogenase Total Creatine Kinase Troponin T Total Protein Albumin Triglycerides Arterial Blood Glucose Arterial Blood Ionized Calcium Urine pH Urine Creatinine Salicylates Acetaminophen Coronavirus (PCR) 09/15/20 09/15/20 09/15/20 04:54 11:24 17:48 WBC RBC Hgb Hct MCHC RDW Lymph % (Auto) [place] % (Auto) Lymph # (Auto) [place] # (Auto) Seg Neutrophils % Seg Neuts % (Manual) Lymphocytes % (Manual) Monocytes % (Manual) Nucleated RBC % Seg Neutrophils # Seg Neutrophils # Man Lymphocytes # (Manual) Monocytes # (Manual) PT INR D-Dimer ABG pH POC ABG pCO2 POC ABG pO2 ABG pO2 ABG HCO3 ABG Base Excess ABG Hemoglobin ABG Oxyhemoglobin ABG Sodium ABG Potassium ABG Chloride ABG Glucose Carboxyhemoglobin Sodium Potassium Chloride Carbon Dioxide BUN Creatinine Glucose POC Glucose 271 H 228 H 254 H Lactic Acid Calcium Phosphorus Ferritin Total Bilirubin Direct Bilirubin AST ALT Lactate Dehydrogenase Total Creatine Kinase Troponin T Total Protein Albumin Triglycerides Arterial Blood Glucose Arterial Blood Ionized Calcium Urine pH Urine Creatinine Salicylates Acetaminophen Coronavirus (PCR) 09/15/20 09/15/20 09/15/20 19:20 19:20 23:13 WBC 27.3 H RBC 3.16 L Hgb 8.8 L Hct 27.0 L MCHC RDW 19.7 H Lymph % (Auto) [place] % (Auto) Lymph # (Auto) [place] # (Auto) Seg Neutrophils % Seg Neuts % (Manual) 81.0 H Lymphocytes % (Manual) 9.0 L Monocytes % (Manual) 10.0 H Nucleated RBC % Seg Neutrophils # Seg Neutrophils # Man 22.1 H Lymphocytes # (Manual) Monocytes # (Manual) 2.7 H PT INR D-Dimer ABG pH POC ABG pCO2 POC ABG pO2 ABG pO2 ABG HCO3 ABG Base Excess ABG Hemoglobin ABG Oxyhemoglobin ABG Sodium ABG Potassium ABG Chloride ABG Glucose Carboxyhemoglobin Sodium Potassium Chloride Carbon Dioxide BUN 68 H Creatinine 2.8 H Glucose 288 H POC Glucose 259 H Lactic Acid Calcium Phosphorus Ferritin Total Bilirubin Direct Bilirubin AST ALT Lactate Dehydrogenase Total Creatine Kinase Troponin T Total Protein Albumin Triglycerides Arterial Blood Glucose Arterial Blood Ionized Calcium Urine pH Urine Creatinine Salicylates Acetaminophen Coronavirus (PCR) 09/16/20 09/16/20 09/16/20 05:27 09:40 11:48 WBC RBC Hgb Hct MCHC RDW Lymph % (Auto) [place] % (Auto) Lymph # (Auto) [place] # (Auto) Seg Neutrophils % Seg Neuts % (Manual) Lymphocytes % (Manual) Monocytes % (Manual) Nucleated RBC % Seg Neutrophils # Seg Neutrophils # Man Lymphocytes # (Manual) Monocytes # (Manual) PT INR D-Dimer ABG pH POC ABG pCO2 POC ABG pO2 ABG pO2 ABG HCO3 ABG Base Excess ABG Hemoglobin ABG Oxyhemoglobin ABG Sodium ABG Potassium ABG Chloride ABG Glucose Carboxyhemoglobin Sodium Potassium Chloride Carbon Dioxide 31 H BUN 77 H Creatinine 2.9 H Glucose 250 H POC Glucose 275 H 234 H Lactic Acid Calcium Phosphorus Ferritin Total Bilirubin Direct Bilirubin AST ALT Lactate Dehydrogenase Total Creatine Kinase Troponin T Total Protein Albumin Triglycerides Arterial Blood Glucose Arterial Blood Ionized Calcium Urine pH Urine Creatinine Salicylates Acetaminophen Coronavirus (PCR) 09/16/20 09/16/20 09/17/20 17:40 23:23 00:01 WBC RBC Hgb Hct MCHC RDW Lymph % (Auto) [place] % (Auto) Lymph # (Auto) [place] # (Auto) Seg Neutrophils % Seg Neuts % (Manual) Lymphocytes % (Manual) Monocytes % (Manual) Nucleated RBC % Seg Neutrophils # Seg Neutrophils # Man Lymphocytes # (Manual) Monocytes # (Manual) PT INR D-Dimer ABG pH POC ABG pCO2 POC ABG pO2 ABG pO2 ABG HCO3 ABG Base Excess ABG Hemoglobin ABG Oxyhemoglobin ABG Sodium ABG Potassium ABG Chloride ABG Glucose Carboxyhemoglobin Sodium Potassium Chloride Carbon Dioxide BUN Creatinine Glucose POC Glucose 172 H 161 H Lactic Acid 2.10 H* Calcium Phosphorus Ferritin Total Bilirubin Direct Bilirubin AST ALT Lactate Dehydrogenase Total Creatine Kinase Troponin T Total Protein Albumin Triglycerides Arterial Blood Glucose Arterial Blood Ionized Calcium Urine pH Urine Creatinine Salicylates Acetaminophen Coronavirus (PCR) 09/17/20 09/17/20 09/17/20 04:00 04:00 05:09 WBC 19.5 H RBC 3.03 L Hgb 8.6 L Hct 26.3 L MCHC RDW 19.4 H Lymph % (Auto) 8.7 L [place] % (Auto) 13.7 H Lymph # (Auto) [place] # (Auto) 2.7 H Seg Neutrophils % 76.9 H Seg Neuts % (Manual) Lymphocytes % (Manual) Monocytes % (Manual) Nucleated RBC % Seg Neutrophils # 15.0 H Seg Neutrophils # Man Lymphocytes # (Manual) Monocytes # (Manual) PT INR D-Dimer ABG pH POC ABG pCO2 POC ABG pO2 ABG pO2 ABG HCO3 ABG Base Excess ABG Hemoglobin ABG Oxyhemoglobin ABG Sodium ABG Potassium ABG Chloride ABG Glucose Carboxyhemoglobin Sodium 146 H Potassium 3.1 L Chloride Carbon Dioxide BUN 79 H Creatinine 2.6 H Glucose 122 H POC Glucose 116 H Lactic Acid Calcium Phosphorus Ferritin Total Bilirubin Direct Bilirubin AST 64 H ALT 516 H Lactate Dehydrogenase Total Creatine Kinase Troponin T Total Protein 5.7 L Albumin 2.8 L Triglycerides Arterial Blood Glucose Arterial Blood Ionized Calcium Urine pH Urine Creatinine Salicylates Acetaminophen Coronavirus (PCR) 09/17/20 09/17/20 09/18/20 13:52 17:38 05:16 WBC RBC Hgb Hct MCHC RDW Lymph % (Auto) [place] % (Auto) Lymph # (Auto) [place] # (Auto) Seg Neutrophils % Seg Neuts % (Manual) Lymphocytes % (Manual) Monocytes % (Manual) Nucleated RBC % Seg Neutrophils # Seg Neutrophils # Man Lymphocytes # (Manual) Monocytes # (Manual) PT INR D-Dimer ABG pH POC ABG pCO2 POC ABG pO2 ABG pO2 ABG HCO3 ABG Base Excess ABG Hemoglobin ABG Oxyhemoglobin ABG Sodium ABG Potassium ABG Chloride ABG Glucose Carboxyhemoglobin Sodium Potassium Chloride Carbon Dioxide BUN Creatinine Glucose POC Glucose 68 L 126 H Lactic Acid 2.90 H* Calcium Phosphorus Ferritin Total Bilirubin Direct Bilirubin AST ALT Lactate Dehydrogenase Total Creatine Kinase Troponin T Total Protein Albumin Triglycerides Arterial Blood Glucose Arterial Blood Ionized Calcium Urine pH Urine Creatinine Salicylates Acetaminophen Coronavirus (PCR) 09/18/20 09/18/20 09/18/20 05:30 05:30 11:42 WBC 18.2 H RBC 3.18 L Hgb 9.0 L Hct 27.2 L MCHC RDW 18.8 H Lymph % (Auto) [place] % (Auto) Lymph # (Auto) [place] # (Auto) Seg Neutrophils % Seg Neuts % (Manual) Lymphocytes % (Manual) Monocytes % (Manual) Nucleated RBC % Seg Neutrophils # Seg Neutrophils # Man Lymphocytes # (Manual) Monocytes # (Manual) PT INR D-Dimer ABG pH POC ABG pCO2 POC ABG pO2 ABG pO2 ABG HCO3 ABG Base Excess ABG Hemoglobin ABG Oxyhemoglobin ABG Sodium ABG Potassium ABG Chloride ABG Glucose Carboxyhemoglobin Sodium Potassium 3.1 L Chloride Carbon Dioxide BUN 73 H Creatinine 2.6 H Glucose 154 H POC Glucose 140 H Lactic Acid Calcium Phosphorus Ferritin Total Bilirubin Direct Bilirubin AST ALT Lactate Dehydrogenase Total Creatine Kinase Troponin T Total Protein Albumin Triglycerides Arterial Blood Glucose Arterial Blood Ionized Calcium Urine pH Urine Creatinine Salicylates Acetaminophen Coronavirus (PCR) 09/18/20 09/18/20 09/19/20 18:15 23:37 05:13 WBC 22.8 H RBC 3.30 L Hgb 9.2 L Hct 28.1 L MCHC RDW 18.2 H Lymph % (Auto) [place] % (Auto) Lymph # (Auto) [place] # (Auto) Seg Neutrophils % Seg Neuts % (Manual) 87.0 H Lymphocytes % (Manual) 5.0 L Monocytes % (Manual) Nucleated RBC % Seg Neutrophils # Seg Neutrophils # Man 19.8 H Lymphocytes # (Manual) 1.1 L Monocytes # (Manual) 1.6 H PT INR D-Dimer ABG pH POC ABG pCO2 POC ABG pO2 ABG pO2 ABG HCO3 ABG Base Excess ABG Hemoglobin ABG Oxyhemoglobin ABG Sodium ABG Potassium ABG Chloride ABG Glucose Carboxyhemoglobin Sodium Potassium Chloride Carbon Dioxide BUN Creatinine Glucose POC Glucose 149 H 153 H Lactic Acid Calcium Phosphorus Ferritin Total Bilirubin Direct Bilirubin AST ALT Lactate Dehydrogenase Total Creatine Kinase Troponin T Total Protein Albumin Triglycerides Arterial Blood Glucose Arterial Blood Ionized Calcium Urine pH Urine Creatinine Salicylates Acetaminophen Coronavirus (PCR) 09/19/20 09/19/20 09/19/20 05:13 05:25 11:56 WBC RBC Hgb Hct MCHC RDW Lymph % (Auto) [place] % (Auto) Lymph # (Auto) [place] # (Auto) Seg Neutrophils % Seg Neuts % (Manual) Lymphocytes % (Manual) Monocytes % (Manual) Nucleated RBC % Seg Neutrophils # Seg Neutrophils # Man Lymphocytes # (Manual) Monocytes # (Manual) PT INR D-Dimer ABG pH POC ABG pCO2 POC ABG pO2 ABG pO2 ABG HCO3 ABG Base Excess ABG Hemoglobin ABG Oxyhemoglobin ABG Sodium ABG Potassium ABG Chloride ABG Glucose Carboxyhemoglobin Sodium Potassium Chloride Carbon Dioxide BUN 55 H Creatinine 2.3 H Glucose 196 H POC Glucose 168 H 137 H Lactic Acid Calcium Phosphorus Ferritin Total Bilirubin Direct Bilirubin AST ALT Lactate Dehydrogenase Total Creatine Kinase Troponin T Total Protein Albumin Triglycerides Arterial Blood Glucose Arterial Blood Ionized Calcium Urine pH Urine Creatinine Salicylates Acetaminophen Coronavirus (PCR) 09/19/20 09/19/20 09/20/20 17:43 23:43 05:02 WBC RBC Hgb Hct MCHC RDW Lymph % (Auto) [place] % (Auto) Lymph # (Auto) [place] # (Auto) Seg Neutrophils % Seg Neuts % (Manual) Lymphocytes % (Manual) Monocytes % (Manual) Nucleated RBC % Seg Neutrophils # Seg Neutrophils # Man Lymphocytes # (Manual) Monocytes # (Manual) PT INR D-Dimer ABG pH POC ABG pCO2 POC ABG pO2 ABG pO2 ABG HCO3 ABG Base Excess ABG Hemoglobin ABG Oxyhemoglobin ABG Sodium ABG Potassium ABG Chloride ABG Glucose Carboxyhemoglobin Sodium Potassium Chloride Carbon Dioxide BUN Creatinine Glucose POC Glucose 114 H 136 H 163 H Lactic Acid Calcium Phosphorus Ferritin Total Bilirubin Direct Bilirubin AST ALT Lactate Dehydrogenase Total Creatine Kinase Troponin T Total Protein Albumin Triglycerides Arterial Blood Glucose Arterial Blood Ionized Calcium Urine pH Urine Creatinine Salicylates Acetaminophen Coronavirus (PCR) 09/20/20 09/20/20 09/20/20 05:36 05:36 11:10 WBC 20.1 H RBC 3.07 L Hgb 8.5 L Hct 26.4 L MCHC RDW 18.6 H Lymph % (Auto) 9.6 L [place] % (Auto) 9.6 H Lymph # (Auto) [place] # (Auto) 1.9 H Seg Neutrophils % 79.0 H Seg Neuts % (Manual) Lymphocytes % (Manual) Monocytes % (Manual) Nucleated RBC % Seg Neutrophils # 15.9 H Seg Neutrophils # Man Lymphocytes # (Manual) Monocytes # (Manual) PT INR D-Dimer ABG pH POC ABG pCO2 POC ABG pO2 ABG pO2 ABG HCO3 ABG Base Excess ABG Hemoglobin ABG Oxyhemoglobin ABG Sodium ABG Potassium ABG Chloride ABG Glucose Carboxyhemoglobin Sodium Potassium 3.3 L Chloride Carbon Dioxide BUN 76 H Creatinine 3.6 H D Glucose 213 H POC Glucose 167 H Lactic Acid Calcium Phosphorus Ferritin Total Bilirubin Direct Bilirubin AST ALT Lactate Dehydrogenase Total Creatine Kinase Troponin T Total Protein Albumin Triglycerides Arterial Blood Glucose Arterial Blood Ionized Calcium Urine pH Urine Creatinine Salicylates Acetaminophen Coronavirus (PCR) 09/20/20 09/20/20 09/20/20 14:02 17:24 23:30 WBC RBC Hgb Hct MCHC RDW Lymph % (Auto) [place] % (Auto) Lymph # (Auto) [place] # (Auto) Seg Neutrophils % Seg Neuts % (Manual) Lymphocytes % (Manual) Monocytes % (Manual) Nucleated RBC % Seg Neutrophils # Seg Neutrophils # Man Lymphocytes # (Manual) Monocytes # (Manual) PT INR D-Dimer ABG pH POC ABG pCO2 POC ABG pO2 ABG pO2 ABG HCO3 ABG Base Excess ABG Hemoglobin ABG Oxyhemoglobin ABG Sodium ABG Potassium ABG Chloride ABG Glucose Carboxyhemoglobin Sodium Potassium Chloride Carbon Dioxide BUN Creatinine Glucose POC Glucose 164 H 146 H 147 H Lactic Acid Calcium Phosphorus Ferritin Total Bilirubin Direct Bilirubin AST ALT Lactate Dehydrogenase Total Creatine Kinase Troponin T Total Protein Albumin Triglycerides Arterial Blood Glucose Arterial Blood Ionized Calcium Urine pH Urine Creatinine Salicylates Acetaminophen Coronavirus (PCR) 09/21/20 09/21/20 09/21/20 05:00 05:00 05:24 WBC 17.4 H RBC 2.95 L Hgb 8.3 L Hct 25.8 L MCHC RDW 19.3 H Lymph % (Auto) 11.1 L [place] % (Auto) 11.1 H Lymph # (Auto) [place] # (Auto) 1.9 H Seg Neutrophils % 75.9 H Seg Neuts % (Manual) Lymphocytes % (Manual) Monocytes % (Manual) Nucleated RBC % Seg Neutrophils # 13.2 H Seg Neutrophils # Man Lymphocytes # (Manual) Monocytes # (Manual) PT INR D-Dimer ABG pH POC ABG pCO2 POC ABG pO2 ABG pO2 ABG HCO3 ABG Base Excess ABG Hemoglobin ABG Oxyhemoglobin ABG Sodium ABG Potassium ABG Chloride ABG Glucose Carboxyhemoglobin Sodium Potassium Chloride Carbon Dioxide BUN 60 H Creatinine 3.5 H Glucose 185 H POC Glucose 139 H Lactic Acid Calcium Phosphorus Ferritin Total Bilirubin Direct Bilirubin AST ALT Lactate Dehydrogenase Total Creatine Kinase Troponin T Total Protein Albumin Triglycerides Arterial Blood Glucose Arterial Blood Ionized Calcium Urine pH Urine Creatinine Salicylates Acetaminophen Coronavirus (PCR) 09/21/20 09/21/20 09/21/20 11:59 17:59 23:32 WBC RBC Hgb Hct MCHC RDW Lymph % (Auto) [place] % (Auto) Lymph # (Auto) [place] # (Auto) Seg Neutrophils % Seg Neuts % (Manual) Lymphocytes % (Manual) Monocytes % (Manual) Nucleated RBC % Seg Neutrophils # Seg Neutrophils # Man Lymphocytes # (Manual) Monocytes # (Manual) PT INR D-Dimer ABG pH POC ABG pCO2 POC ABG pO2 ABG pO2 ABG HCO3 ABG Base Excess ABG Hemoglobin ABG Oxyhemoglobin ABG Sodium ABG Potassium ABG Chloride ABG Glucose Carboxyhemoglobin Sodium Potassium Chloride Carbon Dioxide BUN Creatinine Glucose POC Glucose 183 H 141 H 162 H Lactic Acid Calcium Phosphorus Ferritin Total Bilirubin Direct Bilirubin AST ALT Lactate Dehydrogenase Total Creatine Kinase Troponin T Total Protein Albumin Triglycerides Arterial Blood Glucose Arterial Blood Ionized Calcium Urine pH Urine Creatinine Salicylates Acetaminophen Coronavirus (PCR) 09/22/20 09/22/20 09/22/20 05:32 12:07 17:53 WBC RBC Hgb Hct MCHC RDW Lymph % (Auto) [place] % (Auto) Lymph # (Auto) [place] # (Auto) Seg Neutrophils % Seg Neuts % (Manual) Lymphocytes % (Manual) Monocytes % (Manual) Nucleated RBC % Seg Neutrophils # Seg Neutrophils # Man Lymphocytes # (Manual) Monocytes # (Manual) PT INR D-Dimer ABG pH POC ABG pCO2 POC ABG pO2 ABG pO2 ABG HCO3 ABG Base Excess ABG Hemoglobin ABG Oxyhemoglobin ABG Sodium ABG Potassium ABG Chloride ABG Glucose Carboxyhemoglobin Sodium Potassium Chloride Carbon Dioxide BUN Creatinine Glucose POC Glucose 172 H 169 H 178 H Lactic Acid Calcium Phosphorus Ferritin Total Bilirubin Direct Bilirubin AST ALT Lactate Dehydrogenase Total Creatine Kinase Troponin T Total Protein Albumin Triglycerides Arterial Blood Glucose Arterial Blood Ionized Calcium Urine pH Urine Creatinine Salicylates Acetaminophen Coronavirus (PCR) 09/22/20 09/23/20 09/23/20 23:34 05:21 06:05 WBC RBC Hgb Hct MCHC RDW Lymph % (Auto) [place] % (Auto) Lymph # (Auto) [place] # (Auto) Seg Neutrophils % Seg Neuts % (Manual) Lymphocytes % (Manual) Monocytes % (Manual) Nucleated RBC % Seg Neutrophils # Seg Neutrophils # Man Lymphocytes # (Manual) Monocytes # (Manual) PT INR D-Dimer ABG pH POC ABG pCO2 POC ABG pO2 ABG pO2 ABG HCO3 ABG Base Excess ABG Hemoglobin ABG Oxyhemoglobin ABG Sodium ABG Potassium ABG Chloride ABG Glucose Carboxyhemoglobin Sodium 147 H Potassium Chloride 109.2 H Carbon Dioxide 21 L BUN 54 H Creatinine 4.2 H Glucose 193 H POC Glucose 151 H 168 H Lactic Acid Calcium Phosphorus Ferritin Total Bilirubin Direct Bilirubin AST ALT Lactate Dehydrogenase Total Creatine Kinase Troponin T Total Protein Albumin Triglycerides Arterial Blood Glucose Arterial Blood Ionized Calcium Urine pH Urine Creatinine Salicylates Acetaminophen Coronavirus (PCR) 09/23/20 09/23/20 09/23/20 12:30 17:52 23:16 WBC RBC Hgb Hct MCHC RDW Lymph % (Auto) [place] % (Auto) Lymph # (Auto) [place] # (Auto) Seg Neutrophils % Seg Neuts % (Manual) Lymphocytes % (Manual) Monocytes % (Manual) Nucleated RBC % Seg Neutrophils # Seg Neutrophils # Man Lymphocytes # (Manual) Monocytes # (Manual) PT INR D-Dimer ABG pH POC ABG pCO2 POC ABG pO2 ABG pO2 ABG HCO3 ABG Base Excess ABG Hemoglobin ABG Oxyhemoglobin ABG Sodium ABG Potassium ABG Chloride ABG Glucose Carboxyhemoglobin Sodium Potassium Chloride Carbon Dioxide BUN Creatinine Glucose POC Glucose 170 H 164 H 160 H Lactic Acid Calcium Phosphorus Ferritin Total Bilirubin Direct Bilirubin AST ALT Lactate Dehydrogenase Total Creatine Kinase Troponin T Total Protein Albumin Triglycerides Arterial Blood Glucose Arterial Blood Ionized Calcium Urine pH Urine Creatinine Salicylates Acetaminophen Coronavirus (PCR) 09/24/20 09/24/20 09/24/20 05:22 05:44 12:32 WBC RBC Hgb Hct MCHC RDW Lymph % (Auto) [place] % (Auto) Lymph # (Auto) [place] # (Auto) Seg Neutrophils % Seg Neuts % (Manual) Lymphocytes % (Manual) Monocytes % (Manual) Nucleated RBC % Seg Neutrophils # Seg Neutrophils # Man Lymphocytes # (Manual) Monocytes # (Manual) PT INR D-Dimer ABG pH POC ABG pCO2 POC ABG pO2 ABG pO2 ABG HCO3 ABG Base Excess ABG Hemoglobin ABG Oxyhemoglobin ABG Sodium ABG Potassium ABG Chloride ABG Glucose Carboxyhemoglobin Sodium 148 H Potassium Chloride 109.2 H Carbon Dioxide BUN 61 H Creatinine 4.9 H Glucose 176 H POC Glucose 150 H 165 H Lactic Acid Calcium Phosphorus Ferritin Total Bilirubin Direct Bilirubin AST ALT Lactate Dehydrogenase Total Creatine Kinase Troponin T Total Protein Albumin Triglycerides Arterial Blood Glucose Arterial Blood Ionized Calcium Urine pH Urine Creatinine Salicylates Acetaminophen Coronavirus (PCR) 09/24/20 09/24/20 09/25/20 17:28 23:18 05:18 WBC RBC Hgb Hct MCHC RDW Lymph % (Auto) [place] % (Auto) Lymph # (Auto) [place] # (Auto) Seg Neutrophils % Seg Neuts % (Manual) Lymphocytes % (Manual) Monocytes % (Manual) Nucleated RBC % Seg Neutrophils # Seg Neutrophils # Man Lymphocytes # (Manual) Monocytes # (Manual) PT INR D-Dimer ABG pH POC ABG pCO2 POC ABG pO2 ABG pO2 ABG HCO3 ABG Base Excess ABG Hemoglobin ABG Oxyhemoglobin ABG Sodium ABG Potassium ABG Chloride ABG Glucose Carboxyhemoglobin Sodium 149 H Potassium 3.3 L Chloride 109.6 H Carbon Dioxide BUN 70 H Creatinine 5.6 H Glucose 196 H POC Glucose 153 H 177 H Lactic Acid Calcium Phosphorus Ferritin Total Bilirubin Direct Bilirubin AST 55 H ALT 74 H Lactate Dehydrogenase Total Creatine Kinase Troponin T Total Protein Albumin 2.6 L Triglycerides Arterial Blood Glucose Arterial Blood Ionized Calcium Urine pH Urine Creatinine Salicylates Acetaminophen Coronavirus (PCR) 09/25/20 09/25/20 09/25/20 05:18 11:47 17:04 WBC RBC Hgb Hct MCHC RDW Lymph % (Auto) [place] % (Auto) Lymph # (Auto) [place] # (Auto) Seg Neutrophils % Seg Neuts % (Manual) Lymphocytes % (Manual) Monocytes % (Manual) Nucleated RBC % Seg Neutrophils # Seg Neutrophils # Man Lymphocytes # (Manual) Monocytes # (Manual) PT INR D-Dimer ABG pH POC ABG pCO2 POC ABG pO2 ABG pO2 ABG HCO3 ABG Base Excess ABG Hemoglobin ABG Oxyhemoglobin ABG Sodium ABG Potassium ABG Chloride ABG Glucose Carboxyhemoglobin Sodium Potassium Chloride Carbon Dioxide BUN Creatinine Glucose POC Glucose 159 H 169 H 142 H Lactic Acid Calcium Phosphorus Ferritin Total Bilirubin Direct Bilirubin AST ALT Lactate Dehydrogenase Total Creatine Kinase Troponin T Total Protein Albumin Triglycerides Arterial Blood Glucose Arterial Blood Ionized Calcium Urine pH Urine Creatinine Salicylates Acetaminophen Coronavirus (PCR) 09/25/20 09/26/20 09/26/20 23:20 04:00 05:00 WBC RBC 2.93 L Hgb 8.5 L Hct 25.8 L MCHC RDW 18.5 H Lymph % (Auto) [place] % (Auto) 11.3 H Lymph # (Auto) [place] # (Auto) 1.1 H Seg Neutrophils % 72.0 H Seg Neuts % (Manual) Lymphocytes % (Manual) Monocytes % (Manual) Nucleated RBC % Seg Neutrophils # Seg Neutrophils # Man Lymphocytes # (Manual) Monocytes # (Manual) PT INR D-Dimer ABG pH POC ABG pCO2 POC ABG pO2 ABG pO2 ABG HCO3 ABG Base Excess ABG Hemoglobin ABG Oxyhemoglobin ABG Sodium ABG Potassium ABG Chloride ABG Glucose Carboxyhemoglobin Sodium Potassium 3.4 L Chloride Carbon Dioxide BUN 49 H Creatinine 4.4 H Glucose 179 H POC Glucose 138 H Lactic Acid Calcium Phosphorus Ferritin Total Bilirubin Direct Bilirubin AST ALT Lactate Dehydrogenase Total Creatine Kinase Troponin T Total Protein Albumin Triglycerides Arterial Blood Glucose Arterial Blood Ionized Calcium Urine pH Urine Creatinine Salicylates Acetaminophen Coronavirus (PCR) 09/26/20 09/26/20 09/26/20 05:18 11:59 17:37 WBC RBC Hgb Hct MCHC RDW Lymph % (Auto) [place] % (Auto) Lymph # (Auto) [place] # (Auto) Seg Neutrophils % Seg Neuts % (Manual) Lymphocytes % (Manual) Monocytes % (Manual) Nucleated RBC % Seg Neutrophils # Seg Neutrophils # Man Lymphocytes # (Manual) Monocytes # (Manual) PT INR D-Dimer ABG pH POC ABG pCO2 POC ABG pO2 ABG pO2 ABG HCO3 ABG Base Excess ABG Hemoglobin ABG Oxyhemoglobin ABG Sodium ABG Potassium ABG Chloride ABG Glucose Carboxyhemoglobin Sodium Potassium Chloride Carbon Dioxide BUN Creatinine Glucose POC Glucose 155 H 165 H 132 H Lactic Acid Calcium Phosphorus Ferritin Total Bilirubin Direct Bilirubin AST ALT Lactate Dehydrogenase Total Creatine Kinase Troponin T Total Protein Albumin Triglycerides Arterial Blood Glucose Arterial Blood Ionized Calcium Urine pH Urine Creatinine Salicylates Acetaminophen Coronavirus (PCR) 09/26/20 09/27/20 09/27/20 23:35 04:47 04:47 WBC RBC 3.24 L Hgb 9.3 L Hct 28.6 L MCHC RDW 18.2 H Lymph % (Auto) [place] % (Auto) 11.6 H Lymph # (Auto) [place] # (Auto) 1.0 H Seg Neutrophils % Seg Neuts % (Manual) Lymphocytes % (Manual) Monocytes % (Manual) Nucleated RBC % Seg Neutrophils # Seg Neutrophils # Man Lymphocytes # (Manual) Monocytes # (Manual) PT INR D-Dimer ABG pH POC ABG pCO2 POC ABG pO2 ABG pO2 ABG HCO3 ABG Base Excess ABG Hemoglobin ABG Oxyhemoglobin ABG Sodium ABG Potassium ABG Chloride ABG Glucose Carboxyhemoglobin Sodium Potassium Chloride Carbon Dioxide BUN 54 H Creatinine 4.7 H Glucose 218 H POC Glucose 180 H Lactic Acid Calcium Phosphorus Ferritin Total Bilirubin Direct Bilirubin AST ALT Lactate Dehydrogenase Total Creatine Kinase Troponin T Total Protein Albumin Triglycerides Arterial Blood Glucose Arterial Blood Ionized Calcium Urine pH Urine Creatinine Salicylates Acetaminophen Coronavirus (PCR) 09/27/20 09/27/20 09/27/20 05:14 11:49 17:48 WBC RBC Hgb Hct MCHC RDW Lymph % (Auto) [place] % (Auto) Lymph # (Auto) [place] # (Auto) Seg Neutrophils % Seg Neuts % (Manual) Lymphocytes % (Manual) Monocytes % (Manual) Nucleated RBC % Seg Neutrophils # Seg Neutrophils # Man Lymphocytes # (Manual) Monocytes # (Manual) PT INR D-Dimer ABG pH POC ABG pCO2 POC ABG pO2 ABG pO2 ABG HCO3 ABG Base Excess ABG Hemoglobin ABG Oxyhemoglobin ABG Sodium ABG Potassium ABG Chloride ABG Glucose Carboxyhemoglobin Sodium Potassium Chloride Carbon Dioxide BUN Creatinine Glucose POC Glucose 197 H 219 H 203 H Lactic Acid Calcium Phosphorus Ferritin Total Bilirubin Direct Bilirubin AST ALT Lactate Dehydrogenase Total Creatine Kinase Troponin T Total Protein Albumin Triglycerides Arterial Blood Glucose Arterial Blood Ionized Calcium Urine pH Urine Creatinine Salicylates Acetaminophen Coronavirus (PCR) 09/27/20 09/28/20 09/28/20 23:26 05:28 07:02 WBC RBC Hgb Hct MCHC RDW Lymph % (Auto) [place] % (Auto) Lymph # (Auto) [place] # (Auto) Seg Neutrophils % Seg Neuts % (Manual) Lymphocytes % (Manual) Monocytes % (Manual) Nucleated RBC % Seg Neutrophils # Seg Neutrophils # Man Lymphocytes # (Manual) Monocytes # (Manual) PT INR D-Dimer ABG pH POC ABG pCO2 POC ABG pO2 ABG pO2 ABG HCO3 ABG Base Excess ABG Hemoglobin ABG Oxyhemoglobin ABG Sodium ABG Potassium ABG Chloride ABG Glucose Carboxyhemoglobin Sodium Potassium Chloride Carbon Dioxide BUN 37 H Creatinine 3.8 H Glucose 270 H POC Glucose 243 H 227 H Lactic Acid Calcium Phosphorus Ferritin Total Bilirubin Direct Bilirubin AST ALT Lactate Dehydrogenase Total Creatine Kinase Troponin T Total Protein Albumin Triglycerides Arterial Blood Glucose Arterial Blood Ionized Calcium Urine pH Urine Creatinine Salicylates Acetaminophen Coronavirus (PCR) 09/28/20 09/28/20 09/28/20 07:02 11:35 17:44 WBC RBC 3.26 L Hgb 9.3 L Hct 28.7 L MCHC RDW 18.5 H Lymph % (Auto) [place] % (Auto) 12.7 H Lymph # (Auto) [place] # (Auto) 1.1 H Seg Neutrophils % Seg Neuts % (Manual) Lymphocytes % (Manual) Monocytes % (Manual) Nucleated RBC % Seg Neutrophils # Seg Neutrophils # Man Lymphocytes # (Manual) Monocytes # (Manual) PT INR D-Dimer ABG pH POC ABG pCO2 POC ABG pO2 ABG pO2 ABG HCO3 ABG Base Excess ABG Hemoglobin ABG Oxyhemoglobin ABG Sodium ABG Potassium ABG Chloride ABG Glucose Carboxyhemoglobin Sodium Potassium Chloride Carbon Dioxide BUN Creatinine Glucose POC Glucose 230 H 237 H Lactic Acid Calcium Phosphorus Ferritin Total Bilirubin Direct Bilirubin AST ALT Lactate Dehydrogenase Total Creatine Kinase Troponin T Total Protein Albumin Triglycerides Arterial Blood Glucose Arterial Blood Ionized Calcium Urine pH Urine Creatinine Salicylates Acetaminophen Coronavirus (PCR) 09/28/20 09/29/20 09/29/20 23:52 05:11 05:20 WBC RBC Hgb Hct MCHC RDW Lymph % (Auto) [place] % (Auto) Lymph # (Auto) [place] # (Auto) Seg Neutrophils % Seg Neuts % (Manual) Lymphocytes % (Manual) Monocytes % (Manual) Nucleated RBC % Seg Neutrophils # Seg Neutrophils # Man Lymphocytes # (Manual) Monocytes # (Manual) PT INR D-Dimer ABG pH POC ABG pCO2 POC ABG pO2 ABG pO2 ABG HCO3 ABG Base Excess ABG Hemoglobin ABG Oxyhemoglobin ABG Sodium ABG Potassium ABG Chloride ABG Glucose Carboxyhemoglobin Sodium Potassium Chloride Carbon Dioxide BUN 47 H Creatinine 4.2 H Glucose 289 H POC Glucose 261 H 254 H Lactic Acid Calcium Phosphorus Ferritin Total Bilirubin Direct Bilirubin AST ALT Lactate Dehydrogenase Total Creatine Kinase Troponin T Total Protein Albumin Triglycerides Arterial Blood Glucose Arterial Blood Ionized Calcium Urine pH Urine Creatinine Salicylates Acetaminophen Coronavirus (PCR) 09/29/20 09/29/20 09/29/20 05:20 11:55 17:13 WBC RBC 3.23 L Hgb 9.0 L Hct 27.7 L MCHC RDW 18.3 H Lymph % (Auto) 13.0 L [place] % (Auto) 13.8 H Lymph # (Auto) [place] # (Auto) 1.5 H Seg Neutrophils % 72.3 H Seg Neuts % (Manual) Lymphocytes % (Manual) Monocytes % (Manual) Nucleated RBC % Seg Neutrophils # Seg Neutrophils # Man Lymphocytes # (Manual) Monocytes # (Manual) PT INR D-Dimer ABG pH POC ABG pCO2 POC ABG pO2 ABG pO2 ABG HCO3 ABG Base Excess ABG Hemoglobin ABG Oxyhemoglobin ABG Sodium ABG Potassium ABG Chloride ABG Glucose Carboxyhemoglobin Sodium Potassium Chloride Carbon Dioxide BUN Creatinine Glucose POC Glucose 263 H 279 H Lactic Acid Calcium Phosphorus Ferritin Total Bilirubin Direct Bilirubin AST ALT Lactate Dehydrogenase Total Creatine Kinase Troponin T Total Protein Albumin Triglycerides Arterial Blood Glucose Arterial Blood Ionized Calcium Urine pH Urine Creatinine Salicylates Acetaminophen Coronavirus (PCR) 09/29/20 09/30/20 09/30/20 23:25 05:15 06:57 WBC RBC 3.14 L Hgb 9.0 L Hct 27.4 L MCHC RDW 18.5 H Lymph % (Auto) [place] % (Auto) Lymph # (Auto) [place] # (Auto) Seg Neutrophils % Seg Neuts % (Manual) Lymphocytes % (Manual) Monocytes % (Manual) Nucleated RBC % Seg Neutrophils # Seg Neutrophils # Man Lymphocytes # (Manual) Monocytes # (Manual) PT INR D-Dimer ABG pH POC ABG pCO2 POC ABG pO2 ABG pO2 ABG HCO3 ABG Base Excess ABG Hemoglobin ABG Oxyhemoglobin ABG Sodium ABG Potassium ABG Chloride ABG Glucose Carboxyhemoglobin Sodium Potassium Chloride Carbon Dioxide BUN Creatinine Glucose POC Glucose 284 H 283 H Lactic Acid Calcium Phosphorus Ferritin Total Bilirubin Direct Bilirubin AST ALT Lactate Dehydrogenase Total Creatine Kinase Troponin T Total Protein Albumin Triglycerides Arterial Blood Glucose Arterial Blood Ionized Calcium Urine pH Urine Creatinine Salicylates Acetaminophen Coronavirus (PCR)
--- NOTE | 2020-09-30 14:42 | Progress Note ---
Assessment and Plan Impression: * Nonoliguric RYAN secondary to ATN * Severe hyperkalemia - resolved * COVID 19 PNA * s/p OOH cardiac arrest * Acute hypoxic respiratory failure * Seizure activity * Anemia * Hypernatremia Plan: * Patient is s/p emergent HD - 09/08 * Continue MWF for now, due 10/02 as needed, creatinine continues to uptrend off HD indicating minimal renal recovery and need for ongoing HD, creatinine 3.8- >4.2 off HD 09/29, no labs for review today post HD * Does remain non-oliguric however, ~350cc urine output over past 24 hours, does appear to be downtrending * Check labs daily * Strict I/O * Will continue to monitor for renal recovery * Keep MAP > 65 * Vent management per CCM * Steroids per primary team/ID * Dose medications for renal function * Avoid potential nephrotoxins * Prognosis is guarded Subjective Date of service: 09/30/20 Principal diagnosis: Abnormal LFTs, s/p cardiac arrest, acute kidney injury with ATN Interval history: On PRVC, FiO2 30%, via T-piece, no acute issues noted Reviewed chart extensively including primary and specialist team notes Had HD yesterday, no issues Objective - Exam Narrative Exam: Direct examination deferred to avoid PPE overuse in COVID-19 pandemic. Seen through ICU window, ventilated on trach. - Vital Signs Vital signs: Vital Signs - 12hr 09/30/20 09/30/20 09/30/20 02:45 03:00 03:15 Temperature Pulse Rate 75 74 74 Pulse Rate [ From Monitor] Respiratory 30 H 30 H 29 H Rate Blood Pressure 113/54 112/54 108/57 O2 Sat by Pulse 100 100 100 Oximetry O2 Sat by Pulse Oximetry [ Assessment] 09/30/20 09/30/20 09/30/20 03:21 03:30 03:45 Temperature 97.7 F Pulse Rate 74 75 Pulse Rate [ From Monitor] Respiratory 30 H 29 H Rate Blood Pressure 121/53 107/53 O2 Sat by Pulse 100 100 Oximetry O2 Sat by Pulse Oximetry [ Assessment] 09/30/20 09/30/20 09/30/20 04:00 04:15 04:21 Temperature Pulse Rate 76 76 76 Pulse Rate [ 76 From Monitor] Respiratory 29 H 31 H 31 H Rate Blood Pressure 110/53 102/53 100/53 O2 Sat by Pulse 100 100 98 Oximetry O2 Sat by Pulse Oximetry [ Assessment] 09/30/20 09/30/20 09/30/20 04:30 04:45 05:00 Temperature Pulse Rate 76 76 75 Pulse Rate [ From Monitor] Respiratory 31 H 31 H 31 H Rate Blood Pressure 108/52 106/50 112/52 O2 Sat by Pulse 97 96 96 Oximetry O2 Sat by Pulse Oximetry [ Assessment] 09/30/20 09/30/20 09/30/20 05:15 05:30 05:34 Temperature Pulse Rate 75 78 Pulse Rate [ From Monitor] Respiratory 31 H 32 H Rate Blood Pressure 110/58 109/54 109/54 O2 Sat by Pulse 97 97 Oximetry O2 Sat by Pulse Oximetry [ Assessment] 09/30/20 09/30/20 09/30/20 05:45 06:00 06:15 Temperature Pulse Rate 77 79 76 Pulse Rate [ From Monitor] Respiratory 31 H 33 H 30 H Rate Blood Pressure 106/54 106/59 113/53 O2 Sat by Pulse 99 100 100 Oximetry O2 Sat by Pulse Oximetry [ Assessment] 09/30/20 09/30/20 09/30/20 06:30 06:45 07:00 Temperature 98.2 F Pulse Rate 76 76 76 Pulse Rate [ From Monitor] Respiratory 31 H 30 H 30 H Rate Blood Pressure 110/54 108/57 112/56 O2 Sat by Pulse 100 100 100 Oximetry O2 Sat by Pulse Oximetry [ Assessment] 09/30/20 09/30/20 09/30/20 07:15 07:30 07:45 Temperature Pulse Rate 75 77 76 Pulse Rate [ From Monitor] Respiratory 30 H 31 H 30 H Rate Blood Pressure 110/59 113/56 109/54 O2 Sat by Pulse 100 99 99 Oximetry O2 Sat by Pulse Oximetry [ Assessment] 09/30/20 09/30/20 09/30/20 08:00 08:15 08:30 Temperature Pulse Rate 75 75 79 Pulse Rate [ 76 From Monitor] Respiratory 30 H 30 H 28 H Rate Blood Pressure 115/55 110/53 102/55 O2 Sat by Pulse 99 99 97 Oximetry O2 Sat by Pulse Oximetry [ Assessment] 09/30/20 09/30/20 09/30/20 08:44 08:45 09:00 Temperature Pulse Rate 77 76 Pulse Rate [ From Monitor] Respiratory 39 H 38 H Rate Blood Pressure 115/56 116/56 O2 Sat by Pulse 99 98 99 Oximetry O2 Sat by Pulse 99 Oximetry [ Assessment] 09/30/20 09/30/20 09/30/20 09:15 09:30 09:45 Temperature Pulse Rate 76 76 75 Pulse Rate [ From Monitor] Respiratory 38 H 36 H 38 H Rate Blood Pressure 114/55 118/55 120/55 O2 Sat by Pulse 99 98 98 Oximetry O2 Sat by Pulse Oximetry [ Assessment] 09/30/20 09/30/20 09/30/20 10:00 10:15 10:30 Temperature Pulse Rate 76 74 74 Pulse Rate [ From Monitor] Respiratory 36 H 36 H 35 H Rate Blood Pressure 111/54 120/56 124/61 O2 Sat by Pulse 99 99 98 Oximetry O2 Sat by Pulse Oximetry [ Assessment] 09/30/20 09/30/20 09/30/20 10:45 11:00 11:15 Temperature Pulse Rate 74 73 72 Pulse Rate [ From Monitor] Respiratory 35 H 34 H 35 H Rate Blood Pressure 121/54 121/54 116/56 O2 Sat by Pulse 99 99 99 Oximetry O2 Sat by Pulse Oximetry [ Assessment] 09/30/20 09/30/20 09/30/20 11:30 11:45 12:00 Temperature 99.3 F Pulse Rate 73 72 73 Pulse Rate [ 72 From Monitor] Respiratory 36 H 35 H 30 H Rate Blood Pressure 111/55 109/54 114/54 O2 Sat by Pulse 99 99 99 Oximetry O2 Sat by Pulse Oximetry [ Assessment] 09/30/20 09/30/20 09/30/20 12:15 12:30 12:45 Temperature Pulse Rate 73 73 73 Pulse Rate [ From Monitor] Respiratory 34 H 35 H 36 H Rate Blood Pressure 109/53 118/57 111/52 O2 Sat by Pulse 99 99 99 Oximetry O2 Sat by Pulse Oximetry [ Assessment] 09/30/20 09/30/20 09/30/20 13:00 13:15 13:30 Temperature Pulse Rate 73 72 72 Pulse Rate [ From Monitor] Respiratory 35 H 35 H 36 H Rate Blood Pressure 110/53 116/55 113/53 O2 Sat by Pulse 99 99 100 Oximetry O2 Sat by Pulse Oximetry [ Assessment] 09/30/20 09/30/20 09/30/20 13:33 13:45 14:00 Temperature Pulse Rate 71 72 71 Pulse Rate [ From Monitor] Respiratory 35 H 36 H Rate Blood Pressure 113/53 112/51 114/57 O2 Sat by Pulse 99 99 Oximetry O2 Sat by Pulse Oximetry [ Assessment] 09/30/20 09/30/20 14:15 14:30 Temperature Pulse Rate 71 70 Pulse Rate [ From Monitor] Respiratory 36 H 34 H Rate Blood Pressure 111/52 110/53 O2 Sat by Pulse 100 99 Oximetry O2 Sat by Pulse Oximetry [ Assessment] - Lab 09/30/20 06:57 09/29/20 05:20 Most recent lab results ABG pH 7.442 (7.320-7.450) 09/14/20 03:54 ABG pCO2 33.4 mm Hg 09/11/20 05:40 ABG pO2 112.1 mm Hg (80.0-90.0) H 09/11/20 05:40 ABG HCO3 28.1 mmol/L (20.0-26.0) H 09/11/20 05:40 ABG O2 Saturation 98.4 % (95.0-99.0) 09/11/20 05:40 Calcium 9.6 mg/dL (8.4-10.2) 09/29/20 05:20 Phosphorus 8.00 mg/dL (2.5-4.5) H 09/08/20 12:02 Magnesium 1.80 mg/dL (1.7-2.3) 09/08/20 12:02 Urine Creatinine 182.4 mg/dL (0.1-20.0) H 09/08/20 Unknown Urine Sodium 40 mmol/L 09/08/20 Unknown Medications & Allergies - Medications Allergies/Adverse Reactions: Allergies No Known Allergies Allergy (Verified 09/21/20 21:00) Verified with , no known drug allergies. Home Medications: Home Medications Medication Instructions Recorded Confirmed Last Taken Type Albuterol Sulfate 60 mcg IH PRN 09/11/20 09/11/20 Unknown History Cholecalciferol (Vitamin D3) 25 tab PO DAILY 09/11/20 09/11/20 Unknown History Cozaar 25 tab PO DAILY 09/11/20 09/11/20 Unknown History HumaLOG 14 unit SQ AC 09/11/20 09/11/20 Unknown History Hydralazine HCl 50 tab PO TID 09/11/20 09/11/20 Unknown History Isosorbide Dinitrate 30 mg PO DAILY 09/11/20 09/11/20 Unknown History Lantus VIAL 54 units SQ HS 09/11/20 09/11/20 Unknown History Lasix 20 tab PO DAILY 09/11/20 09/11/20 Unknown History Nifedipine 30 tab PO DAILY 09/11/20 09/11/20 Unknown History Active Medications: Generic Name Dose Route Start Last Admin Trade Name Freq PRN Reason Stop Dose Admin Acetaminophen 400 mg 09/10/20 20:50 09/14/20 23:38 Acetaminophen 325 Mg/10.15 Ml Oral Liqd Unit Dose PO 400 mg Q4HR PRN Administration Non Cardiac Pain or Temp>100.5 Lipase/Protease/Amylase 1 each 09/09/20 09:40 Lipase 10,500/Protease 25,000/Amylase 43,750 (Units) Dr Armenta FEEDTUBE PRN PRN For Clogged Feeding Tube Hydralazine HCl 50 mg 09/23/20 14:00 09/30/20 13:33 Hydralazine 25 Mg Tab PO Not Given Q8HR TAYLOR Hydrophilic Ointment 1 applic 09/07/20 13:08 Lip Therapy Vaseline TP Q2HR PRN Dry Lips Sodium Chloride 100 mls @ 999 mls/hr 09/09/20 13:36 Nacl 0.9% IV JAYJAY PRN Hypotension Insulin Glargine 20 units 09/30/20 10:00 09/30/20 10:09 Insulin Glargine 100 Units/Ml SUB-Q 20 units DAILY TAYLOR Administration Insulin Human Lispro 0 unit 09/12/20 12:00 09/30/20 12:32 Insulin Lispro 100 Unit/Ml SUB-Q 6 unit Q6HR TAYLOR Administration Protocol Lansoprazole 30 mg 09/11/20 11:00 09/30/20 10:09 Lansoprazole 30 Mg Solutab FEEDTUBE 30 mg BID TAYLOR Administration Levetiracetam 1,500 mg 09/28/20 10:00 09/30/20 10:08 Levetiracetam 500 Mg/5 Ml Oral Liqd PO 1,500 mg BID TAYLOR Administration Lorazepam 2 mg 09/08/20 00:14 09/14/20 13:36 Lorazepam 2 Mg/Ml Vial IV 2 mg Q4H PRN Administration Seizures Multi-Ingred Cream/Lotion/Oil/Oint 1 applic 09/07/20 13:08 09/20/20 10:50 Mineral Oil/Petrolatum, White Ophth Oint 3.5 Gm OU 1 applic Q4HR PRN Administration Dry Eye(s) Multivitamins 5 ml 09/09/20 12:00 09/30/20 10:14 Multivitamins 5 Ml Oral Liquid PO 5 ml QDAY TAYLOR Administration Ondansetron HCl 4 mg 09/07/20 17:55 09/19/20 04:00 Ondansetron 4 Mg/2 Ml Inj IV 4 mg Q8H PRN Administration Nausea And Vomiting Senna/Docusate Sodium 2 tab 09/20/20 11:00 Sennosides/Docusate Sodium 8.6/50 Mg Tab PO BID PRN Laxative Effect Simple Syrup 15 ml 09/09/20 09:40 09/17/20 17:43 Simple Syrup 15 Ml FEEDTUBE 15 ml PRN PRN Administration Hypoglycemia Simple Syrup 30 ml 09/09/20 09:40 Simple Syrup 15 Ml FEEDTUBE PRN PRN Hypoglycemia Sodium Bicarbonate 325 mg 09/09/20 09:40 Sodium Bicarbonate 325 Mg Tab FEEDTUBE PRN PRN For Clogged Feeding Tube Sodium Chloride 10 ml 09/07/20 22:00 09/30/20 10:10 Sodium Chloride 0.9% 10 Ml Flush Syringe IV 10 ml BID TAYLOR Administration Sodium Chloride 10 ml 09/07/20 17:55 Sodium Chloride 0.9% 10 Ml Flush Syringe IV PRN PRN LINE FLUSH Valproic Acid 1,000 mg 09/28/20 10:00 09/30/20 10:09 Valproic Acid 250 Mg/5 Ml Oral Liqd FEEDTUBE 1,000 mg BID TAYLOR Administration
[2020-09-30 16:41] LABS: Band Neutrophils # (Manual) 0.7 K/mm3; Total Cells Counted 100
[2020-09-30 16:43] LABS: Ovalocytes Rare; Platelet Estimate Consistent w Auto
[2020-10-01 05:06] LABS: Hematocrit 24.9 % (35.5-45.6); Hemoglobin 8.2 gm/dl (11.8-15.2); Mean Corpuscular HGB Conc 33 % (32-34); Mean Corpuscular Volume 87 fl (84-94); Platelet Count 185 K/mm3 (140-440); Red Blood Count 2.87 M/mm3 (3.65-5.03); Red Cell Distribution Width 18.2 % (13.2-15.2)
[2020-10-01 05:11] LABS: Basophils % (Auto) 0.3 % (0.0-1.8); Eosinophils # (Auto) 0.1 K/mm3 (0.0-0.4); Eosinophils % (Auto) 1.4 % (0.0-4.3); Lymphocytes # (Auto) 1.9 K/mm3 (1.2-5.4); Monocytes # (Auto) 1.2 K/mm3 (0.0-0.8)
[2020-10-01] MEDS: hydrALAZINE 25 MG TAB PO SCH ×3 (05:28→21:42)
[2020-10-01] MEDS: INSULIN LISPRO 100 UNIT/ML SUB-Q SCH ×4 (05:34→23:56)
[2020-10-01] MEDS: VALPROIC ACID 250 MG/5 ML ORAL LIQD FEEDTUBE SCH ×2 (09:22→21:41)
[2020-10-01] MEDS: LANSOPRAZOLE 30 MG SOLUTAB FEEDTUBE SCH ×2 (09:23→21:41)
[2020-10-01] MEDS: MULTIVITAMINS 5 ML ORAL LIQUID PO SCH (09:23)
[2020-10-01] MEDS: levETIRAcetam 500 MG/5 ML ORAL LIQD PO SCH ×2 (09:23→21:41)
[2020-10-01] MEDS: INSULIN GLARGINE 100 UNITS/ML SUB-Q SCH (09:33)
--- NOTE | 2020-10-01 09:55 | Progress Note ---
Assessment and Plan Assessment and plan: S/p cardiopulmonary arrest (out of hospital) Toxic metabolic encephalopathy +/-anoxic injury Acute hypoxic respiratory failure Nonoliguric acute kidney injury secondary to ATN. Patient status post emergent hemodialysis 09/08. Seizure disorder Hyperkalemia Hypernatremia COVID-19 pneumonia Sepsis Transaminitis Morbid obesity. 09/15/2020. MRI brain for further evaluation. Continue AEDs of valproic acid and Keppra. Continue hemodialysis per nephrology recommendations. Overall prognosis remains guarded and poor. 09/16/2020. ID recommends continue to monitor patient off of antibiotics. Fever most likely of central etiology. Patient with questionable seizures versus myoclonus from anoxic brain injury. Patient unable to undergo MRI due to body habitus. Continue AEDs per neurology recommendations. Inflammatory markers elevated. Patient was recently [facility] for [place]. Patient not a candidate for remdesivir due to hepatic and renal failure. Viral hepatitis panel negative. Overall prognosis extremely poor. 09/17/2020. Fevers have resolved over the past 48 hours. Continue to monitor off antibiotics per ID recommendations. Patient with questionable seizures versus myoclonus from anoxic brain injury. Patient unable to undergo MRI due to body habitus. EEG is nonspecific but given CT of head findings consistent with anoxic encephalopathy, brain injury. Continue AEDs per neurology recommendations. Inflammatory markers elevated. Patient was recently hospitalized for [place] [facility] [place] [facility] [place] [facility] [place]. Patient not a candidate for remdesivir due to hepatic and renal failure. Viral hepatitis panel negative. Patient is s/p emergent HD on Friday (hyperK) and Friday - 09/08. Patient also S/p HD 09/15. Continue hemodialysis per nephrology recommendations. Patient currently on AC/PRVC mode ventilation with rate of 30, tidal volume 475, FiO2 30% and PEEP of 6. As stated in neuro note, overall prognosis is very poor. 09/18/2020. Fevers have resolved over the past 72 hours. Continue to monitor off antibiotics per ID recommendations. Leukocytosis persistent for the past 4 days. Patient with questionable seizures/myoclonus from anoxic brain injury. Patient unable to undergo MRI due to body habitus. EEG is nonspecific but given CT of head findings consistent with anoxic encephalopathy, brain injury. Continue AEDs per neurology recommendations. Inflammatory markers elevated. Patient was recently [facility] for [place] [place] [facility] [place] [facility] [place] [facility] [place]. Patient not a candidate for remdesivir due to hepatic and renal failure. Viral hepatitis panel negative. Patient currently on AC/PRVC mode ventilation with rate of 30, tidal volume 475, FiO2 30% and PEEP of 6. Overall prognosis remains guarded/poor. 09/19/2020 Fevers have resolved over the past 4 days. Continue to monitor off antibiotics per ID recommendations. Leukocytosis persistent for the past 4 days. Patient with questionable seizures/myoclonus from anoxic brain injury. Patient unable to undergo MRI due to body habitus. EEG is nonspecific but given CT of head findings consistent with anoxic encephalopathy, brain injury. Continue AEDs per neurology recommendations. Inflammatory markers elevated. Patient was recently [facility] [place] [facility] [place] [facility] [place] [facility] [place]. Patient not a candidate for remdesivir due to hepatic and renal failure. Viral hepatitis panel negative. Patient currently on AC/PRVC mode ventilation with rate of 30, tidal volume 475, FiO2 30% and PEEP of 6. Overall prognosis remains guarded/poor. 09/20/2020 -Surgery consulted for PEG and trach, will continue to follow. 09/21/2020; patient will have PEG and trach by Dr. hayes today. Prognosis is poor. Continue with current management. Price Clerk is following for vent management. 09/22/2020; patient had PEG and trach yesterday. 09/23/2020; continue PEG Tube Feeding. 09/24/2020; continue PEG tube feeding, patient is on Keppra, lorazepam and phenyt oin per neurology recommendation. Patient is on hemodialysis and nephrology is following. Management of mechanical ventilation for CCM. 09/25/2020. Continue PEG tube feeding, patient is on Keppra, lorazepam and phenytoin per neurology recommendation. Patient is on hemodialysis and nephrology is following. Management of mechanical ventilation for CCM. Continue PSV/CPAP 07/16. Continue tracheostomy care, secretion control and airway management. 09/26/2020. Patient has tolerated PSV for approximately 48 hours. I discussed with pulmonary possibility of T-piece today. Continue tracheostomy care, secretion control and airway management. If patient tolerates T-piece trials, patient will be transferred to the floor. Continue AEDs of Keppra and phenytoin as well as Ativan as needed per neurology recommendations. Continue hemodialysis per nephrology. Continue TF with aspiration precautions. 09/27/2020. Patient continues to tolerate PSV 12/6 at 30% FiO2. T-piece trials per pulmonary. Continue tracheostomy care, secretion control and airway management. Continue AEDs of Keppra and phenytoin as well as Ativan as needed per neurology recommendations. Continue hemodialysis per nephrology. Continue TF with aspiration precautions. 09/28/2020. Patient for T-piece trials per pulmonary. Continue hemodialysis per nephrology. Continue tracheostomy care, secretion control and airway management. Continue AEDs of Keppra and phenytoin as well as Ativan as needed per neurology recommendations. Continue TF with aspiration precautions. 09/29/2020, continue T-piece trials per pulmonary. Continue hemodialysis per nephrology. Continue strict I/O's and labs daily. Monitor for renal recovery. 09/30/2020. Continue T-piece trials per pulmonary recommendations. Continue tracheostomy care, secretion control and airway management. Continue hemodialysis per nephrology. Tight glycemic control. Continue TF with aspiration precautions. 10/01/2020. Patient with T-piece trials and tolerating. Wean to trach collar per pulmonary. Continue tracheostomy care, secretion control and airway management. Continue hemodialysis per nephrology. Tight glycemic control. Continue TF with aspiration precautions. Case management consultation for placement The high probability of a clinically significant, sudden or life threatening deterioration of the [cardiac, respiratory and neurological] system(s) required my full and direct attention, intervention and personal management. The [facility] critical care time was [31] minutes. This time is in addition to time spent performing reported procedures but includes the following: [x] Data Review and interpretation [x] Patient assessment and monitoring of vital signs [x] Documentation [x] Medication orders and management History Interval history: 65 y/o male with out of hospital cardiac arrest, acute hypoxic respiratory failure and COVID-19 infection. Hospitalist Physical - Constitutional Vitals: Temp Pulse Resp BP Pulse Ox 98.0 F 75 42 H 121/49 99 10/01/20 07:16 10/01/20 09:00 10/01/20 09:00 10/01/20 09:00 10/01/20 09:00 General appearance: Present: other (On mechanical ventilation) - EENT Eyes: Present: PERRL, EOM intact ENT: hearing intact, clear oral mucosa, dentition normal - Neck Neck: Present: supple, normal ROM - Respiratory Respiratory effort: normal Respiratory: bilateral: CTA - Cardiovascular Rhythm: regular Heart Sounds: Present: S1 & S2. Absent: gallop, rub - Extremities Extremities: no ischemia, No edema, Full ROM - Abdominal General gastrointestinal: soft, non-tender, non-distended, normal bowel sounds - Integumentary Integumentary: Present: clear, warm, dry - Neurologic Neurologic: CNII-XII intact, moves all extremities HEART Score - HEART Score Troponin: Troponin T 0.076 ng/mL (0.00-0.029) H 09/07/20 14:00 Results - Labs CBC & Chem 7: 10/01/20 04:33 09/29/20 05:20 Labs: Laboratory Last Values WBC 7.2 K/mm3 (4.5-11.0) 10/01/20 04:33 RBC 2.87 M/mm3 (3.65-5.03) L 10/01/20 04:33 Hgb 8.2 gm/dl (11.8-15.2) L 10/01/20 04:33 Hct 24.9 % (35.5-45.6) L 10/01/20 04:33 MCV 87 fl (84-94) 10/01/20 04:33 MCH 29 pg (28-32) 10/01/20 04:33 MCHC 33 % (32-34) 10/01/20 04:33 RDW 18.2 % (13.2-15.2) H 10/01/20 04:33 Plt Count 185 K/mm3 (140-440) 10/01/20 04:33 Lymph % (Auto) 27.0 % (13.4-35.0) 10/01/20 04:33 [place] % (Auto) Field Project Manager 10/01/20 04:33 Eos % (Auto) 1.4 % (0.0-4.3) 10/01/20 04:33 Baso % (Auto) 0.3 % (0.0-1.8) 10/01/20 04:33 Lymph # (Auto) 1.9 K/mm3 (1.2-5.4) 10/01/20 04:33 [place] # (Auto) 1.2 K/mm3 (0.0-0.8) H 10/01/20 04:33 Eos # (Auto) 0.1 K/mm3 (0.0-0.4) 10/01/20 04:33 Baso # (Auto) 0.0 K/mm3 (0.0-0.1) 10/01/20 04:33 Add Manual Diff Complete 09/30/20 06:57 Total Counted 100 09/30/20 06:57 Seg Neutrophils % 54.7 % (40.0-70.0) 10/01/20 04:33 Seg Neuts % (Manual) 55.0 % (40.0-70.0) 09/30/20 06:57 Band Neutrophils % 8.0 % 09/30/20 06:57 Lymphocytes % (Manual) 23.0 % (13.4-35.0) 09/30/20 06:57 Monocytes % (Manual) 13.0 % (0.0-7.3) H 09/30/20 06:57 Eosinophils % (Manual) 2.0 % (0.0-4.3) 09/07/20 14:00 Basophils % (Manual) 1.0 % (0.0-1.8) 09/30/20 06:57 Metamyelocytes % 2.0 % 09/08/20 Unknown Nucleated RBC % Not Reportable 09/30/20 06:57 Seg Neutrophils # 3.9 K/mm3 (1.8-7.7) 10/01/20 04:33 Seg Neutrophils # Man 4.8 K/mm3 (1.8-7.7) 09/30/20 06:57 Band Neutrophils # 0.7 K/mm3 09/30/20 06:57 Lymphocytes # (Manual) 2.0 K/mm3 (1.2-5.4) 09/30/20 06:57 Abs React Lymphs (Man) 0.0 K/mm3 09/30/20 06:57 Monocytes # (Manual) 1.1 K/mm3 (0.0-0.8) H 09/30/20 06:57 Eosinophils # (Manual) 0.0 K/mm3 (0.0-0.4) 09/30/20 06:57 Basophils # (Manual) 0.1 K/mm3 (0.0-0.1) 09/30/20 06:57 Metamyelocytes # 0.0 K/mm3 09/30/20 06:57 Myelocytes # 0.0 K/mm3 09/30/20 06:57 Promyelocytes # 0.0 K/mm3 09/30/20 06:57 Blast Cells # 0.0 K/mm3 09/30/20 06:57 WBC Morphology Not Reportable 09/30/20 06:57 Hypersegmented Neuts Not Reportable 09/30/20 06:57 Hyposegmented Neuts Not Reportable 09/30/20 06:57 Hypogranular Neuts Not Reportable 09/30/20 06:57 Smudge Cells Not Reportable 09/30/20 06:57 Toxic Granulation Not Reportable 09/30/20 06:57 Toxic Vacuolation Not Reportable 09/30/20 06:57 Dohle Bodies Not Reportable 09/30/20 06:57 Pelger-Huet Anomaly Not Reportable 09/30/20 06:57 Justus Rods Not Reportable 09/30/20 06:57 Platelet Estimate Consistent w auto 09/30/20 06:57 Clumped Platelets Not Reportable 09/30/20 06:57 Plt Clumps, EDTA Not Reportable 09/30/20 06:57 Large Platelets Not Reportable 09/30/20 06:57 Giant Platelets Not Reportable 09/30/20 06:57 Platelet Satelliting Not Reportable 09/30/20 06:57 Plt Morphology Comment Not Reportable 09/30/20 06:57 RBC Morphology Not Reportable 09/30/20 06:57 Dimorphic RBCs Not Reportable 09/30/20 06:57 Polychromasia Not Reportable 09/30/20 06:57 Hypochromasia Not Reportable 09/30/20 06:57 Poikilocytosis Not Reportable 09/30/20 06:57 Anisocytosis Not Reportable 09/30/20 06:57 Microcytosis Not Reportable 09/30/20 06:57 Macrocytosis Not Reportable 09/30/20 06:57 Spherocytes Not Reportable 09/30/20 06:57 Pappenheimer Bodies Not Reportable 09/30/20 06:57 Sickle Cells Not Reportable 09/30/20 06:57 Target Cells Not Reportable 09/30/20 06:57 Tear Drop Cells Not Reportable 09/30/20 06:57 Ovalocytes Rare 09/30/20 06:57 Helmet Cells Not Reportable 09/30/20 06:57 [place] Bodies Not Reportable 09/30/20 06:57 Tornillo Rings Not Reportable 09/30/20 06:57 Manjit Cells Not Reportable 09/30/20 06:57 Bite Cells Not Reportable 09/30/20 06:57 Crenated Cell Not Reportable 09/30/20 06:57 Elliptocytes Not Reportable 09/30/20 06:57 Acanthocytes (Spur) Not Reportable 09/30/20 06:57 Rouleaux Not Reportable 09/30/20 06:57 Hemoglobin C Crystals Not Reportable 09/30/20 06:57 Schistocytes Not Reportable 09/30/20 06:57 Malaria parasites Not Reportable 09/30/20 06:57 Tommie Bodies Not Reportable 09/30/20 06:57 Hem Pathologist Commnt No 09/30/20 06:57 PT 16.1 Sec. (12.2-14.9) H 09/12/20 04:00 INR 1.31 (0.87-1.13) H 09/12/20 04:00 APTT 32.4 Sec. (24.2-36.6) 09/09/20 10:00 D-Dimer 8315.85 ng/mlDDU (0-234) H 09/07/20 14:00 ABG pH 7.442 (7.320-7.450) 09/14/20 03:54 POC ABG pCO2 42.3 mmHg (32.0-48.0) 09/14/20 03:54 ABG pCO2 33.4 mm Hg 09/11/20 05:40 POC ABG pO2 71.1 mmHg (83-108) L 09/14/20 03:54 ABG pO2 112.1 mm Hg (80.0-90.0) H 09/11/20 05:40 POC ABG HCO3 28.2 09/14/20 03:54 ABG HCO3 28.1 mmol/L (20.0-26.0) H 09/11/20 05:40 ABG O2 Saturation 98.4 % (95.0-99.0) 09/11/20 05:40 ABG O2 Content 11.6 (0.0-44) 09/11/20 05:40 POC ABG Base Excess 3.7 09/14/20 03:54 ABG Base Excess 5.4 mmol/L (-2.0-3.0) H 09/11/20 05:40 ABG Hemoglobin 10.3 (12.0-17.5) L 09/14/20 03:54 ABG Oxyhemoglobin 93.2 (94-98) L 09/13/20 04:47 ABG Carboxyhemoglobin 1.2 % (0.0-5.0) 09/11/20 05:40 ABG Methemoglobin 0.3 (0.0-1.5) 09/13/20 04:47 ABG Sodium 135.2 mmol/L (136.0-145.0) L 09/14/20 03:54 ABG Potassium 3.8 mmol/L (3.40-4.50) 09/14/20 03:54 ABG Chloride 98.0 mmol/L (98-107) 09/14/20 03:54 ABG Glucose 281 mg/dL (65-95) H 09/14/20 03:54 Oxyhemoglobin 96.8 % (95.0-99.0) 09/11/20 05:40 Carboxyhemoglobin 0.4 (0.5-1.5) L 09/13/20 04:47 FiO2 30 09/14/20 03:54 Sodium 137 mmol/L (137-145) 09/29/20 05:20 Potassium 3.8 mmol/L (3.6-5.0) 09/29/20 05:20 Chloride 99.4 mmol/L (98-107) 09/29/20 05:20 Carbon Dioxide 27 mmol/L (22-30) 09/29/20 05:20 Anion Gap 14 mmol/L 09/29/20 05:20 BUN 47 mg/dL (9-20) H 09/29/20 05:20 Creatinine 4.2 mg/dL (0.8-1.3) H 09/29/20 05:20 Estimated GFR 17 ml/min 09/29/20 05:20 BUN/Creatinine Ratio 11 % 09/29/20 05:20 Glucose 289 mg/dL (75-100) H 09/29/20 05:20 POC Glucose 219 mg/dL (70-105) H 10/01/20 05:30 Lactic Acid 2.90 mmol/L (0.7-2.0) H* 09/17/20 13:52 Calcium 9.6 mg/dL (8.4-10.2) 09/29/20 05:20 Phosphorus 8.00 mg/dL (2.5-4.5) H 09/08/20 12:02 Magnesium 1.80 mg/dL (1.7-2.3) 09/08/20 12:02 Ferritin > 2000.0 ng/mL (30.0-300.0) H 09/07/20 14:00 Total Bilirubin 0.50 mg/dL (0.1-1.2) 09/25/20 05:18 Direct Bilirubin 0.5 mg/dL (0-0.2) H 09/08/20 05:00 Indirect Bilirubin 0.5 mg/dL 09/08/20 05:00 AST 55 units/L (5-40) H 09/25/20 05:18 ALT 74 units/L (7-56) H 09/25/20 05:18 Alkaline Phosphatase 81 units/L (35-129) 09/25/20 05:18 Ammonia 50.0 umol/L (25-60) 09/07/20 14:00 Lactate Dehydrogenase 882 units/L (91-180) H 09/07/20 14:00 Total Creatine Kinase 477 units/L (55-170) H 09/07/20 14:00 Troponin T 0.076 ng/mL (0.00-0.029) H 09/07/20 14:00 C-Reactive Protein 1.10 mg/dL (0.00-1.30) 09/07/20 14:00 Total Protein 7.0 g/dL (6.3-8.2) 09/25/20 05:18 Albumin 2.6 g/dL (3.9-5) L 09/25/20 05:18 Albumin/Globulin Ratio 0.6 % 09/25/20 05:18 Triglycerides 220 mg/dL (2-149) H 09/12/20 Unknown Procalcitonin 1.52 ng/mL (<0.15) 09/17/20 13:02 TSH 2.290 mlU/mL (0.270-4.200) 09/07/20 14:00 Arterial Blood Glucose 281 mg/dL (65-95) H 09/14/20 03:54 Arterial Blood Ionized Calcium 4.6 mg/dL (4.6-5.3) 09/14/20 03:54 Urine Color Straw (Yellow) 09/07/20 13:08 Urine Turbidity Slightly-cloudy (Clear) 09/07/20 13:08 Urine pH 8.0 (5.0-7.0) H 09/07/20 13:08 Ur Specific [place] 1.006 (1.003-1.030) 09/07/20 13:08 Urine Protein 100 mg/dl mg/dL (Negative) 09/07/20 13:08 Urine Glucose (UA) Neg mg/dL (Negative) 09/07/20 13:08 Urine Ketones Neg mg/dL (Negative) 09/07/20 13:08 Urine Blood Neg (Negative) 09/07/20 13:08 Urine Nitrite Neg (Negative) 09/07/20 13:08 Urine Bilirubin Neg (Negative) 09/07/20 13:08 Urine Urobilinogen < 2.0 mg/dL (<2.0) 09/07/20 13:08 Ur Leukocyte Esterase Neg (Negative) 09/07/20 13:08 Urine WBC (Auto) 4.0 /HPF (0.0-6.0) 09/07/20 13:08 Urine RBC (Auto) 18.0 /HPF (0.0-6.0) 09/07/20 13:08 U Epithel Cells (Auto) 1.0 /HPF (0-13.0) 09/07/20 13:08 Urine Mucus Few /HPF 09/07/20 13:08 Urine Sperm 3+ /HPF (AIRCRAFT ENGINE DISMANTLER) 09/07/20 13:08 Urine Creatinine 182.4 mg/dL (0.1-20.0) H 09/08/20 Unknown Urine Sodium 40 mmol/L 09/08/20 Unknown Salicylates < 0.3 mg/dL (2.8-20.0) L 09/07/20 14:00 Acetaminophen 5.0 ug/mL (10.0-30.0) L 09/07/20 14:00 Plasma/Serum Alcohol < 0.01 % (0-0.07) 09/07/20 14:00 Coronavirus (PCR) Negative (Negative) 09/19/20 Unknown Hepatitis A IgM Ab Non-reactive (NonReactive) 09/07/20 14:00 Hep Bs Antigen Non-reactive (Negative) 09/07/20 14:00 Hep B Core IgM Ab Non-reactive (NonReactive) 09/07/20 14:00 Hepatitis C Antibody Non-reactive (NonReactive) 09/07/20 14:00 HIV 1&2 Antibody Rapid Non react (Non React) 09/07/20 14:34 HIV P24 Antigen Non react (Non React) 09/07/20 14:34 Blood Type O POSITIVE 09/09/20 10:00 Antibody Screen Negative 09/07/20 14:00 Mae/IV: Voiding Method Condom Catheter IV Catheter Type [Right Triple Lumen Cath Femoral] IV Catheter Type [Left Peripheral IV Antecubital] IV Catheter Type [Left Hand] Peripheral IV IV Catheter Type [Right Peripheral IV Antecubital] Active Medications - Current Medications Current Medications: Generic Name Dose Route Start Last Admin Trade Name Freq PRN Reason Stop Dose Admin Acetaminophen 400 mg 09/10/20 20:50 09/14/20 23:38 Acetaminophen 325 Mg/10.15 Ml Oral Liqd Unit Dose PO 400 mg Q4HR PRN Administration Non Cardiac Pain or Temp>100.5 Lipase/Protease/Amylase 1 each 09/09/20 09:40 Lipase 10,500/Protease 25,000/Amylase 43,750 (Units) Dr Armenta FEEDTUBE PRN PRN For Clogged Feeding Tube Hydralazine HCl 50 mg 09/23/20 14:00 10/01/20 05:28 Hydralazine 25 Mg Tab PO Not Given Q8HR TAYLOR Hydrophilic Ointment 1 applic 09/07/20 13:08 Lip Therapy Vaseline TP Q2HR PRN Dry Lips Sodium Chloride 100 mls @ 999 mls/hr 09/09/20 13:36 Nacl 0.9% IV JAYJAY PRN Hypotension Insulin Glargine 20 units 09/30/20 10:00 10/01/20 09:33 Insulin Glargine 100 Units/Ml SUB-Q 20 units DAILY TAYLOR Administration Insulin Human Lispro 0 unit 09/12/20 12:00 10/01/20 05:34 Insulin Lispro 100 Unit/Ml SUB-Q 4 unit Q6HR TAYLOR Administration Protocol Lansoprazole 30 mg 09/11/20 11:00 10/01/20 09:23 Lansoprazole 30 Mg Solutab FEEDTUBE 30 mg BID TAYLOR Administration Levetiracetam 1,500 mg 09/28/20 10:00 10/01/20 09:23 Levetiracetam 500 Mg/5 Ml Oral Liqd PO 1,500 mg BID TAYLOR Administration Lorazepam 2 mg 09/08/20 00:14 09/14/20 13:36 Lorazepam 2 Mg/Ml Vial IV 2 mg Q4H PRN Administration Seizures Multi-Ingred Cream/Lotion/Oil/Oint 1 applic 09/07/20 13:08 09/20/20 10:50 Mineral Oil/Petrolatum, White Ophth Oint 3.5 Gm OU 1 applic Q4HR PRN Administration Dry Eye(s) Multivitamins 5 ml 09/09/20 12:00 10/01/20 09:23 Multivitamins 5 Ml Oral Liquid PO 5 ml QDAY TAYLOR Administration Ondansetron HCl 4 mg 09/07/20 17:55 09/19/20 04:00 Ondansetron 4 Mg/2 Ml Inj IV 4 mg Q8H PRN Administration Nausea And Vomiting Senna/Docusate Sodium 2 tab 09/20/20 11:00 Sennosides/Docusate Sodium 8.6/50 Mg Tab PO BID PRN Laxative Effect Simple Syrup 15 ml 09/09/20 09:40 09/17/20 17:43 Simple Syrup 15 Ml FEEDTUBE 15 ml PRN PRN Administration Hypoglycemia Simple Syrup 30 ml 09/09/20 09:40 Simple Syrup 15 Ml FEEDTUBE PRN PRN Hypoglycemia Sodium Bicarbonate 325 mg 09/09/20 09:40 Sodium Bicarbonate 325 Mg Tab FEEDTUBE PRN PRN For Clogged Feeding Tube Sodium Chloride 10 ml 09/07/20 22:00 10/01/20 09:34 Sodium Chloride 0.9% 10 Ml Flush Syringe IV 10 ml BID TAYLOR Administration Sodium Chloride 10 ml 09/07/20 17:55 Sodium Chloride 0.9% 10 Ml Flush Syringe IV PRN PRN LINE FLUSH Valproic Acid 1,000 mg 09/28/20 10:00 10/01/20 09:22 Valproic Acid 250 Mg/5 Ml Oral Liqd FEEDTUBE 1,000 mg BID TAYLOR Administration Nutrition/Malnutrition Assess - Dietary Evaluation Nutrition/Malnutrition Findings: Nutrition Notes Start: 09/08/20 12:01 Freq: Status: Active Protocol: Document 09/29/20 11:00 AL (Rec: 09/29/20 11:49 AL [id number]) Co-Sign 09/29/20 11:00 LP Nutrition Notes Initial or Follow up Reassessment Current Diagnosis Acute Kidney Injury, Respiratory Failure Other Pertinent Diagnosis on HD, cardiac arrest, COVID ( +), metabolic encephalopathy, pneu Current Diet Nepro 1.8 at 45 mL/hr (goal rate) Labs/Tests BUN 47 Cr 4.2 BG 289 Pertinent Medications Humalog Lantus Height 6 ft Weight 145.18 kg [place] Body Weight (kg) 80.90 BMI 43.4 Weight change and time frame wt change of 5.2 kg noted (3.6 %). Weight Status Morbidly Obese Subjective/Other Information Pt is tolerating TF at goal rate (45 ml/hr). Percent of energy/protein needs met: 99%/43% Burn Absent Trauma Absent GI Symptoms None Current % PO Negligible Minimum of two criteria No physical signs of malnutrition #2 Nutrition Diagnosis Increased nutrient needs ( specify in comment below) Diagnosis Progress(for reassessment Continues documentation) #1 Nutrition Diagnosis Inadequate oral intake Diagnosis Progress(for reassessment Continues documentation) Is patient on ventilator? Yes Is Patient Ambulatory and/or Out of Bed No REE-([place]-confined to bed) 2740.164 Kcal/Kg value to use for calculation 13 Approximate Energy Requirements Using 1887 kcal/Kg Calculation Used for Recommendations Kcal/kg Additional Notes PRO needs: >202g (> 2.5g/kg IBW 80.9kg) Fluid needs are 1000-1500ml Nutrition Intervention Change Diet Order: TF Nutrition Support: Nepro at 45ml/hr Flush 200ml q4h for hypernatremia. 120ml q4h once resolved Kcal 1,944 Protein (gm) 87 Fluid (mL) 785 Goal #1 Meet kcal and protein needs as best as possible via TF Anticipated Discharge Needs: TF Follow-Up By: 10/03/20 Additional Comments Follow for stable TF
--- NOTE | 2020-10-01 13:07 | Progress Note ---
Assessment and Plan Impression: * Nonoliguric RYAN secondary to ATN * Severe hyperkalemia - resolved * COVID 19 PNA * s/p OOH cardiac arrest * Acute hypoxic respiratory failure * Seizure activity * Anemia * Hypernatremia Plan: * Patient is s/p emergent HD - 09/08 * Continue MWF for now, due 10/02 as needed, creatinine continues to uptrend off HD indicating minimal renal recovery and need for ongoing HD, creatinine 3.8- >4.2 off HD 09/29, no labs for review today, will check labs in AM * Does remain non-oliguric however, ~600cc urine output over past 24 hours * Check labs daily * Strict I/O * Will continue to monitor for renal recovery * Keep MAP > 65 * Vent management per CCM * Steroids per primary team/ID * Dose medications for renal function * Avoid potential nephrotoxins * Prognosis is guarded Subjective Date of service: 10/01/20 Principal diagnosis: Abnormal LFTs, s/p cardiac arrest, acute kidney injury with ATN Interval history: On PRVC, FiO2 30%, via T-piece, no acute issues noted Reviewed chart extensively including primary and specialist team notes Had HD yesterday, no issues Objective - Exam Narrative Exam: Direct examination deferred to avoid PPE overuse in COVID-19 pandemic. Seen through ICU window, ventilated on trach. - Vital Signs Vital signs: Vital Signs - 12hr 10/01/20 10/01/20 10/01/20 01:15 01:30 01:45 Temperature Pulse Rate 73 73 73 Pulse Rate [ From Monitor] Respiratory 36 H 37 H 34 H Rate Blood Pressure 115/48 116/48 109/49 O2 Sat by Pulse 100 100 100 Oximetry O2 Sat by Pulse Oximetry [ Assessment] 10/01/20 10/01/20 10/01/20 02:00 02:15 02:30 Temperature Pulse Rate 73 74 73 Pulse Rate [ From Monitor] Respiratory 35 H 34 H 32 H Rate Blood Pressure 115/50 109/46 117/48 O2 Sat by Pulse 100 100 100 Oximetry O2 Sat by Pulse Oximetry [ Assessment] 10/01/20 10/01/20 10/01/20 02:45 03:00 03:15 Temperature Pulse Rate 77 76 77 Pulse Rate [ From Monitor] Respiratory 32 H 33 H 30 H Rate Blood Pressure 115/47 112/52 117/52 O2 Sat by Pulse 100 100 100 Oximetry O2 Sat by Pulse Oximetry [ Assessment] 10/01/20 10/01/20 10/01/20 03:30 03:45 04:00 Temperature 98.4 F Pulse Rate 77 75 74 Pulse Rate [ 74 From Monitor] Respiratory 32 H 33 H 40 H Rate Blood Pressure 111/48 121/49 119/50 O2 Sat by Pulse 100 100 98 Oximetry O2 Sat by Pulse Oximetry [ Assessment] 10/01/20 10/01/20 10/01/20 04:15 04:31 04:45 Temperature Pulse Rate 75 80 77 Pulse Rate [ From Monitor] Respiratory 36 H 35 H 43 H Rate Blood Pressure 134/57 119/45 119/51 O2 Sat by Pulse 100 98 Oximetry O2 Sat by Pulse Oximetry [ Assessment] 10/01/20 10/01/20 10/01/20 04:47 05:00 05:15 Temperature Pulse Rate 74 73 Pulse Rate [ From Monitor] Respiratory 40 H 42 H Rate Blood Pressure 125/50 115/47 O2 Sat by Pulse 98 98 Oximetry O2 Sat by Pulse 100 Oximetry [ Assessment] 10/01/20 10/01/20 10/01/20 05:28 05:30 05:45 Temperature Pulse Rate 74 73 74 Pulse Rate [ From Monitor] Respiratory 40 H 39 H Rate Blood Pressure 115/47 128/55 121/53 O2 Sat by Pulse 98 99 Oximetry O2 Sat by Pulse Oximetry [ Assessment] 10/01/20 10/01/20 10/01/20 06:00 06:15 06:30 Temperature Pulse Rate 72 76 75 Pulse Rate [ From Monitor] Respiratory 39 H 46 H 43 H Rate Blood Pressure 129/52 125/52 114/51 O2 Sat by Pulse 99 99 99 Oximetry O2 Sat by Pulse Oximetry [ Assessment] 10/01/20 10/01/20 10/01/20 06:45 07:00 07:04 Temperature Pulse Rate 72 73 Pulse Rate [ From Monitor] Respiratory 40 H 40 H Rate Blood Pressure 123/51 124/49 O2 Sat by Pulse 100 100 100 Oximetry O2 Sat by Pulse Oximetry [ Assessment] 10/01/20 10/01/20 10/01/20 07:15 07:16 07:30 Temperature 98.0 F Pulse Rate 72 74 Pulse Rate [ From Monitor] Respiratory 40 H 39 H Rate Blood Pressure 127/50 117/51 O2 Sat by Pulse 100 100 Oximetry O2 Sat by Pulse Oximetry [ Assessment] 10/01/20 10/01/20 10/01/20 07:45 08:00 08:15 Temperature Pulse Rate 73 74 73 Pulse Rate [ 74 From Monitor] Respiratory 41 H 40 H 40 H Rate Blood Pressure 123/49 128/48 122/49 O2 Sat by Pulse 100 100 100 Oximetry O2 Sat by Pulse 100 Oximetry [ Assessment] 10/01/20 10/01/20 10/01/20 08:30 08:45 09:00 Temperature Pulse Rate 75 74 75 Pulse Rate [ From Monitor] Respiratory 40 H 39 H 42 H Rate Blood Pressure 126/50 125/50 121/49 O2 Sat by Pulse 99 99 99 Oximetry O2 Sat by Pulse Oximetry [ Assessment] 10/01/20 10/01/20 10/01/20 09:15 09:30 09:45 Temperature Pulse Rate 73 73 74 Pulse Rate [ From Monitor] Respiratory 40 H 41 H 44 H Rate Blood Pressure 117/47 128/55 130/53 O2 Sat by Pulse 99 99 99 Oximetry O2 Sat by Pulse Oximetry [ Assessment] 10/01/20 10/01/20 10/01/20 10:01 10:15 10:30 Temperature Pulse Rate 74 78 76 Pulse Rate [ From Monitor] Respiratory 43 H 43 H 46 H Rate Blood Pressure 130/56 139/52 127/50 O2 Sat by Pulse 100 100 98 Oximetry O2 Sat by Pulse Oximetry [ Assessment] 10/01/20 10/01/20 10/01/20 10:45 11:00 11:15 Temperature Pulse Rate 74 73 73 Pulse Rate [ From Monitor] Respiratory 45 H 44 H 42 H Rate Blood Pressure 126/50 131/51 127/50 O2 Sat by Pulse 97 97 98 Oximetry O2 Sat by Pulse Oximetry [ Assessment] 10/01/20 10/01/20 10/01/20 11:30 11:45 12:00 Temperature Pulse Rate 72 73 75 Pulse Rate [ 73 From Monitor] Respiratory 42 H 39 H 39 H Rate Blood Pressure 123/54 127/53 129/51 O2 Sat by Pulse 98 99 99 Oximetry O2 Sat by Pulse Oximetry [ Assessment] 10/01/20 12:29 Temperature 98.9 F Pulse Rate Pulse Rate [ From Monitor] Respiratory Rate Blood Pressure O2 Sat by Pulse Oximetry O2 Sat by Pulse Oximetry [ Assessment] - Lab 10/01/20 04:33 09/29/20 05:20 Most recent lab results ABG pH 7.433 (7.320-7.450) 10/01/20 04:49 ABG pCO2 33.4 mm Hg 09/11/20 05:40 ABG pO2 112.1 mm Hg (80.0-90.0) H 09/11/20 05:40 ABG HCO3 28.1 mmol/L (20.0-26.0) H 09/11/20 05:40 ABG O2 Saturation 98.4 % (95.0-99.0) 09/11/20 05:40 Calcium 9.6 mg/dL (8.4-10.2) 09/29/20 05:20 Phosphorus 8.00 mg/dL (2.5-4.5) H 09/08/20 12:02 Magnesium 1.80 mg/dL (1.7-2.3) 09/08/20 12:02 Urine Creatinine 182.4 mg/dL (0.1-20.0) H 09/08/20 Unknown Urine Sodium 40 mmol/L 09/08/20 Unknown Medications & Allergies - Medications Allergies/Adverse Reactions: Allergies No Known Allergies Allergy (Verified 09/21/20 21:00) Verified with , no known drug allergies. Home Medications: Home Medications Medication Instructions Recorded Confirmed Last Taken Type Albuterol Sulfate 60 mcg IH PRN 09/11/20 09/11/20 Unknown History Cholecalciferol (Vitamin D3) 25 tab PO DAILY 09/11/20 09/11/20 Unknown History Cozaar 25 tab PO DAILY 09/11/20 09/11/20 Unknown History HumaLOG 14 unit SQ AC 09/11/20 09/11/20 Unknown History Hydralazine HCl 50 tab PO TID 09/11/20 09/11/20 Unknown History Isosorbide Dinitrate 30 mg PO DAILY 09/11/20 09/11/20 Unknown History Lantus VIAL 54 units SQ HS 09/11/20 09/11/20 Unknown History Lasix 20 tab PO DAILY 09/11/20 09/11/20 Unknown History Nifedipine 30 tab PO DAILY 09/11/20 09/11/20 Unknown History Active Medications: Generic Name Dose Route Start Last Admin Trade Name Freq PRN Reason Stop Dose Admin Acetaminophen 400 mg 09/10/20 20:50 09/14/20 23:38 Acetaminophen 325 Mg/10.15 Ml Oral Liqd Unit Dose PO 400 mg Q4HR PRN Administration Non Cardiac Pain or Temp>100.5 Lipase/Protease/Amylase 1 each 09/09/20 09:40 Lipase 10,500/Protease 25,000/Amylase 43,750 (Units) Dr Armenta FEEDTUBE PRN PRN For Clogged Feeding Tube Hydralazine HCl 50 mg 09/23/20 14:00 10/01/20 05:28 Hydralazine 25 Mg Tab PO Not Given Q8HR TAYLOR Hydrophilic Ointment 1 applic 09/07/20 13:08 Lip Therapy Vaseline TP Q2HR PRN Dry Lips Sodium Chloride 100 mls @ 999 mls/hr 09/09/20 13:36 Nacl 0.9% IV JAYJAY PRN Hypotension Insulin Glargine 20 units 09/30/20 10:00 10/01/20 09:33 Insulin Glargine 100 Units/Ml SUB-Q 20 units DAILY TAYLOR Administration Insulin Human Lispro 0 unit 09/12/20 12:00 10/01/20 05:34 Insulin Lispro 100 Unit/Ml SUB-Q 4 unit Q6HR TAYLOR Administration Protocol Lansoprazole 30 mg 09/11/20 11:00 10/01/20 09:23 Lansoprazole 30 Mg Solutab FEEDTUBE 30 mg BID TAYLOR Administration Levetiracetam 1,500 mg 09/28/20 10:00 10/01/20 09:23 Levetiracetam 500 Mg/5 Ml Oral Liqd PO 1,500 mg BID TAYLOR Administration Lorazepam 2 mg 09/08/20 00:14 09/14/20 13:36 Lorazepam 2 Mg/Ml Vial IV 2 mg Q4H PRN Administration Seizures Multi-Ingred Cream/Lotion/Oil/Oint 1 applic 09/07/20 13:08 09/20/20 10:50 Mineral Oil/Petrolatum, White Ophth Oint 3.5 Gm OU 1 applic Q4HR PRN Administration Dry Eye(s) Multivitamins 5 ml 09/09/20 12:00 10/01/20 09:23 Multivitamins 5 Ml Oral Liquid PO 5 ml QDAY TAYLOR Administration Ondansetron HCl 4 mg 09/07/20 17:55 09/19/20 04:00 Ondansetron 4 Mg/2 Ml Inj IV 4 mg Q8H PRN Administration Nausea And Vomiting Senna/Docusate Sodium 2 tab 09/20/20 11:00 Sennosides/Docusate Sodium 8.6/50 Mg Tab PO BID PRN Laxative Effect Simple Syrup 15 ml 09/09/20 09:40 09/17/20 17:43 Simple Syrup 15 Ml FEEDTUBE 15 ml PRN PRN Administration Hypoglycemia Simple Syrup 30 ml 09/09/20 09:40 Simple Syrup 15 Ml FEEDTUBE PRN PRN Hypoglycemia Sodium Bicarbonate 325 mg 09/09/20 09:40 Sodium Bicarbonate 325 Mg Tab FEEDTUBE PRN PRN For Clogged Feeding Tube Sodium Chloride 10 ml 09/07/20 22:00 10/01/20 09:34 Sodium Chloride 0.9% 10 Ml Flush Syringe IV 10 ml BID TAYLOR Administration Sodium Chloride 10 ml 09/07/20 17:55 Sodium Chloride 0.9% 10 Ml Flush Syringe IV PRN PRN LINE FLUSH Valproic Acid 1,000 mg 09/28/20 10:00 10/01/20 09:22 Valproic Acid 250 Mg/5 Ml Oral Liqd FEEDTUBE 1,000 mg BID TAYLOR Administration
--- NOTE | 2020-10-01 13:18 | Progress Note ---
Assessment and Plan - Patient Problems (1) Chronic respiratory failure Current Visit: Yes Status: Acute (2) COVID-19 Current Visit: Yes Status: Acute (3) Cardiac arrest Current Visit: Yes Status: Acute (4) Morbid obesity Current Visit: Yes Status: Acute (5) Transaminitis Current Visit: Yes Status: Acute Subjective Principal diagnosis: Abnormal LFTs, s/p cardiac arrest, acute kidney injury with ATN Interval history: on tpiece Objective Vital Signs - 12hr 10/01/20 10/01/20 10/01/20 01:30 01:45 02:00 Temperature Pulse Rate 73 73 73 Pulse Rate [ From Monitor] Respiratory 37 H 34 H 35 H Rate Blood Pressure 116/48 109/49 115/50 O2 Sat by Pulse 100 100 100 Oximetry O2 Sat by Pulse Oximetry [ Assessment] 10/01/20 10/01/20 10/01/20 02:15 02:30 02:45 Temperature Pulse Rate 74 73 77 Pulse Rate [ From Monitor] Respiratory 34 H 32 H 32 H Rate Blood Pressure 109/46 117/48 115/47 O2 Sat by Pulse 100 100 100 Oximetry O2 Sat by Pulse Oximetry [ Assessment] 10/01/20 10/01/20 10/01/20 03:00 03:15 03:30 Temperature Pulse Rate 76 77 77 Pulse Rate [ From Monitor] Respiratory 33 H 30 H 32 H Rate Blood Pressure 112/52 117/52 111/48 O2 Sat by Pulse 100 100 100 Oximetry O2 Sat by Pulse Oximetry [ Assessment] 10/01/20 10/01/20 10/01/20 03:45 04:00 04:15 Temperature 98.4 F Pulse Rate 75 74 75 Pulse Rate [ 74 From Monitor] Respiratory 33 H 40 H 36 H Rate Blood Pressure 121/49 119/50 134/57 O2 Sat by Pulse 100 98 100 Oximetry O2 Sat by Pulse Oximetry [ Assessment] 10/01/20 10/01/20 10/01/20 04:31 04:45 04:47 Temperature Pulse Rate 80 77 Pulse Rate [ From Monitor] Respiratory 35 H 43 H Rate Blood Pressure 119/45 119/51 O2 Sat by Pulse 98 Oximetry O2 Sat by Pulse 100 Oximetry [ Assessment] 10/01/20 10/01/20 10/01/20 05:00 05:15 05:28 Temperature Pulse Rate 74 73 74 Pulse Rate [ From Monitor] Respiratory 40 H 42 H Rate Blood Pressure 125/50 115/47 115/47 O2 Sat by Pulse 98 98 Oximetry O2 Sat by Pulse Oximetry [ Assessment] 10/01/20 10/01/20 10/01/20 05:30 05:45 06:00 Temperature Pulse Rate 73 74 72 Pulse Rate [ From Monitor] Respiratory 40 H 39 H 39 H Rate Blood Pressure 128/55 121/53 129/52 O2 Sat by Pulse 98 99 99 Oximetry O2 Sat by Pulse Oximetry [ Assessment] 10/01/20 10/01/20 10/01/20 06:15 06:30 06:45 Temperature Pulse Rate 76 75 72 Pulse Rate [ From Monitor] Respiratory 46 H 43 H 40 H Rate Blood Pressure 125/52 114/51 123/51 O2 Sat by Pulse 99 99 100 Oximetry O2 Sat by Pulse Oximetry [ Assessment] 10/01/20 10/01/20 10/01/20 07:00 07:04 07:15 Temperature Pulse Rate 73 72 Pulse Rate [ From Monitor] Respiratory 40 H 40 H Rate Blood Pressure 124/49 127/50 O2 Sat by Pulse 100 100 100 Oximetry O2 Sat by Pulse Oximetry [ Assessment] 10/01/20 10/01/20 10/01/20 07:16 07:30 07:45 Temperature 98.0 F Pulse Rate 74 73 Pulse Rate [ From Monitor] Respiratory 39 H 41 H Rate Blood Pressure 117/51 123/49 O2 Sat by Pulse 100 100 Oximetry O2 Sat by Pulse Oximetry [ Assessment] 10/01/20 10/01/20 10/01/20 08:00 08:15 08:30 Temperature Pulse Rate 74 73 75 Pulse Rate [ 74 From Monitor] Respiratory 40 H 40 H 40 H Rate Blood Pressure 128/48 122/49 126/50 O2 Sat by Pulse 100 100 99 Oximetry O2 Sat by Pulse 100 Oximetry [ Assessment] 10/01/20 10/01/20 10/01/20 08:45 09:00 09:15 Temperature Pulse Rate 74 75 73 Pulse Rate [ From Monitor] Respiratory 39 H 42 H 40 H Rate Blood Pressure 125/50 121/49 117/47 O2 Sat by Pulse 99 99 99 Oximetry O2 Sat by Pulse Oximetry [ Assessment] 10/01/20 10/01/20 10/01/20 09:30 09:45 10:01 Temperature Pulse Rate 73 74 74 Pulse Rate [ From Monitor] Respiratory 41 H 44 H 43 H Rate Blood Pressure 128/55 130/53 130/56 O2 Sat by Pulse 99 99 100 Oximetry O2 Sat by Pulse Oximetry [ Assessment] 10/01/20 10/01/20 10/01/20 10:15 10:30 10:45 Temperature Pulse Rate 78 76 74 Pulse Rate [ From Monitor] Respiratory 43 H 46 H 45 H Rate Blood Pressure 139/52 127/50 126/50 O2 Sat by Pulse 100 98 97 Oximetry O2 Sat by Pulse Oximetry [ Assessment] 10/01/20 10/01/20 10/01/20 11:00 11:15 11:30 Temperature Pulse Rate 73 73 72 Pulse Rate [ From Monitor] Respiratory 44 H 42 H 42 H Rate Blood Pressure 131/51 127/50 123/54 O2 Sat by Pulse 97 98 98 Oximetry O2 Sat by Pulse Oximetry [ Assessment] 10/01/20 10/01/20 10/01/20 11:45 12:00 12:29 Temperature 98.9 F Pulse Rate 73 75 Pulse Rate [ 73 From Monitor] Respiratory 39 H 39 H Rate Blood Pressure 127/53 129/51 O2 Sat by Pulse 99 99 Oximetry O2 Sat by Pulse Oximetry [ Assessment] Constitutional: comatose, other (morbidly obese t piece sp trach) Eyes: non-icteric ENT: other (tpiece) Neck: supple Effort: normal Ascultation: Bilateral: diminished breath sounds Percussion: Bilateral: not dull Cardiovascular: other (bradycardic) Gastrointestinal: soft Neurologic: other CBC and BMP: 10/01/20 04:33 09/29/20 05:20 ABG, PT/INR, D-dimer: ABG ABG pH 7.433 (7.320-7.450) 10/01/20 04:49 POC ABG pCO2 40.8 mmHg (32.0-48.0) 10/01/20 04:49 ABG pCO2 33.4 mm Hg 09/11/20 05:40 POC ABG pO2 88.4 mmHg (83-108) 10/01/20 04:49 ABG pO2 112.1 mm Hg (80.0-90.0) H 09/11/20 05:40 POC ABG HCO3 26.7 10/01/20 04:49 ABG O2 Saturation 98.4 % (95.0-99.0) 09/11/20 05:40 PT/INR, D-dimer PT 16.1 Sec. (12.2-14.9) H 09/12/20 04:00 INR 1.31 (0.87-1.13) H 09/12/20 04:00 D-Dimer 8315.85 ng/mlDDU (0-234) H 09/07/20 14:00 Abnormal lab findings: Abnormal Labs 09/07/20 09/07/20 09/07/20 13:08 14:00 14:00 WBC 15.7 H RBC Hgb 10.2 L Hct 32.5 L MCHC 31 L RDW 17.5 H Lymph % (Auto) [place] % (Auto) Lymph # (Auto) [place] # (Auto) Seg Neutrophils % Seg Neuts % (Manual) 72.0 H Lymphocytes % (Manual) Monocytes % (Manual) 8.0 H Nucleated RBC % Seg Neutrophils # Seg Neutrophils # Man 11.3 H Lymphocytes # (Manual) Monocytes # (Manual) 1.3 H PT INR D-Dimer 8315.85 H ABG pH POC ABG pCO2 POC ABG pO2 ABG pO2 ABG HCO3 ABG Base Excess ABG Hemoglobin ABG Oxyhemoglobin ABG Sodium ABG Potassium ABG Chloride ABG Glucose Carboxyhemoglobin Sodium Potassium Chloride Carbon Dioxide BUN Creatinine Glucose POC Glucose Lactic Acid Calcium Phosphorus Ferritin Total Bilirubin Direct Bilirubin AST ALT Lactate Dehydrogenase Total Creatine Kinase Troponin T Total Protein Albumin Triglycerides Arterial Blood Glucose Arterial Blood Ionized Calcium Urine pH 8.0 H Urine Creatinine Salicylates Acetaminophen Coronavirus (PCR) 09/07/20 09/07/20 09/07/20 14:00 14:00 14:00 WBC RBC Hgb Hct MCHC RDW Lymph % (Auto) [place] % (Auto) Lymph # (Auto) [place] # (Auto) Seg Neutrophils % Seg Neuts % (Manual) Lymphocytes % (Manual) Monocytes % (Manual) Nucleated RBC % Seg Neutrophils # Seg Neutrophils # Man Lymphocytes # (Manual) Monocytes # (Manual) PT INR D-Dimer ABG pH POC ABG pCO2 POC ABG pO2 ABG pO2 ABG HCO3 ABG Base Excess ABG Hemoglobin ABG Oxyhemoglobin ABG Sodium ABG Potassium ABG Chloride ABG Glucose Carboxyhemoglobin Sodium Potassium Chloride Carbon Dioxide BUN Creatinine Glucose POC Glucose Lactic Acid 4.30 H* Calcium Phosphorus Ferritin > 2000.0 H Total Bilirubin Direct Bilirubin AST ALT Lactate Dehydrogenase 882 H Total Creatine Kinase 477 H Troponin T 0.076 H Total Protein Albumin Triglycerides Arterial Blood Glucose Arterial Blood Ionized Calcium Urine pH Urine Creatinine Salicylates Acetaminophen Coronavirus (PCR) 09/07/20 09/07/20 09/07/20 14:00 14:00 14:00 WBC RBC Hgb Hct MCHC RDW Lymph % (Auto) [place] % (Auto) Lymph # (Auto) [place] # (Auto) Seg Neutrophils % Seg Neuts % (Manual) Lymphocytes % (Manual) Monocytes % (Manual) Nucleated RBC % Seg Neutrophils # Seg Neutrophils # Man Lymphocytes # (Manual) Monocytes # (Manual) PT INR D-Dimer ABG pH POC ABG pCO2 POC ABG pO2 ABG pO2 ABG HCO3 ABG Base Excess ABG Hemoglobin ABG Oxyhemoglobin ABG Sodium ABG Potassium ABG Chloride ABG Glucose Carboxyhemoglobin Sodium Potassium Chloride Carbon Dioxide BUN Creatinine 1.8 H Glucose POC Glucose Lactic Acid Calcium Phosphorus Ferritin Total Bilirubin Direct Bilirubin AST 310 H ALT 339 H Lactate Dehydrogenase Total Creatine Kinase Troponin T Total Protein Albumin 3.6 L Triglycerides Arterial Blood Glucose Arterial Blood Ionized Calcium Urine pH Urine Creatinine Salicylates < 0.3 L Acetaminophen 5.0 L Coronavirus (PCR) 09/07/20 09/08/20 09/08/20 14:26 04:00 04:17 WBC RBC Hgb Hct MCHC RDW Lymph % (Auto) [place] % (Auto) Lymph # (Auto) [place] # (Auto) Seg Neutrophils % Seg Neuts % (Manual) Lymphocytes % (Manual) Monocytes % (Manual) Nucleated RBC % Seg Neutrophils # Seg Neutrophils # Man Lymphocytes # (Manual) Monocytes # (Manual) PT INR D-Dimer ABG pH 7.037 L 7.095 L POC ABG pCO2 92.4 H 68.0 H POC ABG pO2 130.8 H 43.5 L ABG pO2 ABG HCO3 ABG Base Excess ABG Hemoglobin 11.3 L 10.6 L ABG Oxyhemoglobin 70.8 L ABG Sodium ABG Potassium 7.0 H ABG Chloride 108.0 H ABG Glucose Carboxyhemoglobin 0.3 L Sodium Potassium 8.4 H* D Chloride Carbon Dioxide 17 L D BUN 38 H Creatinine 3.9 H D Glucose POC Glucose Lactic Acid Calcium 7.7 L D Phosphorus Ferritin Total Bilirubin Direct Bilirubin AST ALT Lactate Dehydrogenase Total Creatine Kinase Troponin T Total Protein Albumin Triglycerides Arterial Blood Glucose Arterial Blood Ionized Calcium 4.5 L Urine pH Urine Creatinine Salicylates Acetaminophen Coronavirus (PCR) 09/08/20 09/08/20 09/08/20 05:00 05:25 12:02 WBC RBC Hgb Hct MCHC RDW Lymph % (Auto) [place] % (Auto) Lymph # (Auto) [place] # (Auto) Seg Neutrophils % Seg Neuts % (Manual) Lymphocytes % (Manual) Monocytes % (Manual) Nucleated RBC % Seg Neutrophils # Seg Neutrophils # Man Lymphocytes # (Manual) Monocytes # (Manual) PT INR D-Dimer ABG pH 7.088 L POC ABG pCO2 69.1 H POC ABG pO2 35.2 L ABG pO2 ABG HCO3 ABG Base Excess ABG Hemoglobin 10.9 L ABG Oxyhemoglobin 57.1 L ABG Sodium ABG Potassium 7.0 H ABG Chloride 108.0 H ABG Glucose Carboxyhemoglobin 0.4 L Sodium Potassium 8.1 H* Chloride Carbon Dioxide 17 L BUN 38 H Creatinine 3.7 H Glucose POC Glucose Lactic Acid Calcium 8.0 L Phosphorus 8.00 H Ferritin Total Bilirubin Direct Bilirubin 0.5 H AST 3696 H ALT 3331 H Lactate Dehydrogenase Total Creatine Kinase Troponin T Total Protein Albumin 3.5 L Triglycerides Arterial Blood Glucose Arterial Blood Ionized Calcium 4.4 L Urine pH Urine Creatinine Salicylates Acetaminophen Coronavirus (PCR) 09/08/20 09/08/20 09/08/20 16:31 22:36 Unknown WBC RBC Hgb Hct MCHC RDW Lymph % (Auto) [place] % (Auto) Lymph # (Auto) [place] # (Auto) Seg Neutrophils % Seg Neuts % (Manual) Lymphocytes % (Manual) Monocytes % (Manual) Nucleated RBC % Seg Neutrophils # Seg Neutrophils # Man Lymphocytes # (Manual) Monocytes # (Manual) PT INR D-Dimer ABG pH POC ABG pCO2 POC ABG pO2 ABG pO2 ABG HCO3 ABG Base Excess ABG Hemoglobin ABG Oxyhemoglobin ABG Sodium ABG Potassium ABG Chloride ABG Glucose Carboxyhemoglobin Sodium Potassium 5.3 H D Chloride Carbon Dioxide BUN Creatinine Glucose POC Glucose 158 H Lactic Acid Calcium Phosphorus Ferritin Total Bilirubin Direct Bilirubin AST ALT Lactate Dehydrogenase Total Creatine Kinase Troponin T Total Protein Albumin Triglycerides Arterial Blood Glucose Arterial Blood Ionized Calcium Urine pH Urine Creatinine Salicylates Acetaminophen Coronavirus (PCR) Positive A 01/09/08/20 09/08/20 Unknown Unknown Unknown WBC 18.4 H RBC Hgb 10.1 L Hct 32.0 L MCHC RDW 18.2 H Lymph % (Auto) [place] % (Auto) Lymph # (Auto) [place] # (Auto) Seg Neutrophils % Seg Neuts % (Manual) 81.0 H Lymphocytes % (Manual) 2.0 L Monocytes % (Manual) Nucleated RBC % 1.0 H Seg Neutrophils # Seg Neutrophils # Man 14.9 H Lymphocytes # (Manual) 0.4 L Monocytes # (Manual) 1.1 H PT 21.2 H INR 1.83 H D-Dimer ABG pH POC ABG pCO2 POC ABG pO2 ABG pO2 ABG HCO3 ABG Base Excess ABG Hemoglobin ABG Oxyhemoglobin ABG Sodium ABG Potassium ABG Chloride ABG Glucose Carboxyhemoglobin Sodium Potassium Chloride Carbon Dioxide BUN Creatinine Glucose POC Glucose Lactic Acid Calcium Phosphorus Ferritin Total Bilirubin Direct Bilirubin AST ALT Lactate Dehydrogenase Total Creatine Kinase Troponin T Total Protein Albumin Triglycerides Arterial Blood Glucose Arterial Blood Ionized Calcium Urine pH Urine Creatinine 182.4 H Salicylates Acetaminophen Coronavirus (PCR) 09/09/20 09/09/20 09/09/20 03:14 04:20 04:20 WBC 16.3 H RBC 3.12 L Hgb 8.6 L Hct 26.8 L MCHC RDW 18.2 H Lymph % (Auto) 6.3 L [place] % (Auto) 8.8 H Lymph # (Auto) 1.0 L [place] # (Auto) 1.4 H Seg Neutrophils % 84.5 H Seg Neuts % (Manual) Lymphocytes % (Manual) Monocytes % (Manual) Nucleated RBC % Seg Neutrophils # 13.7 H Seg Neutrophils # Man Lymphocytes # (Manual) Monocytes # (Manual) PT INR D-Dimer ABG pH POC ABG pCO2 POC ABG pO2 148.5 H ABG pO2 ABG HCO3 ABG Base Excess ABG Hemoglobin 9.4 L ABG Oxyhemoglobin 98.8 H ABG Sodium 134.8 L ABG Potassium 5.0 H ABG Chloride ABG Glucose 222 H Carboxyhemoglobin 0.1 L Sodium Potassium 5.2 H Chloride Carbon Dioxide BUN 47 H Creatinine 4.3 H Glucose 211 H POC Glucose Lactic Acid Calcium 7.4 L Phosphorus Ferritin Total Bilirubin Direct Bilirubin AST 16994 H ALT 6206 H Lactate Dehydrogenase Total Creatine Kinase Troponin T Total Protein 5.6 L Albumin 3.0 L Triglycerides Arterial Blood Glucose 222 H Arterial Blood Ionized Calcium 3.8 L Urine pH Urine Creatinine Salicylates Acetaminophen Coronavirus (PCR) 09/09/20 09/09/20 09/09/20 10:00 12:23 18:22 WBC RBC Hgb Hct MCHC RDW Lymph % (Auto) [place] % (Auto) Lymph # (Auto) [place] # (Auto) Seg Neutrophils % Seg Neuts % (Manual) Lymphocytes % (Manual) Monocytes % (Manual) Nucleated RBC % Seg Neutrophils # Seg Neutrophils # Man Lymphocytes # (Manual) Monocytes # (Manual) PT 21.7 H INR 1.90 H D-Dimer ABG pH POC ABG pCO2 POC ABG pO2 ABG pO2 ABG HCO3 ABG Base Excess ABG Hemoglobin ABG Oxyhemoglobin ABG Sodium ABG Potassium ABG Chloride ABG Glucose Carboxyhemoglobin Sodium Potassium Chloride Carbon Dioxide BUN Creatinine Glucose POC Glucose 216 H 211 H Lactic Acid Calcium Phosphorus Ferritin Total Bilirubin Direct Bilirubin AST ALT Lactate Dehydrogenase Total Creatine Kinase Troponin T Total Protein Albumin Triglycerides Arterial Blood Glucose Arterial Blood Ionized Calcium Urine pH Urine Creatinine Salicylates Acetaminophen Coronavirus (PCR) 09/10/20 09/10/20 09/10/20 04:00 04:05 04:05 WBC 15.0 H RBC 3.06 L Hgb 8.6 L Hct 25.8 L MCHC RDW 18.0 H Lymph % (Auto) [place] % (Auto) Lymph # (Auto) [place] # (Auto) Seg Neutrophils % Seg Neuts % (Manual) 86.0 H Lymphocytes % (Manual) 6.0 L Monocytes % (Manual) 8.0 H Nucleated RBC % Seg Neutrophils # Seg Neutrophils # Man 12.9 H Lymphocytes # (Manual) 0.9 L Monocytes # (Manual) 1.2 H PT 18.4 H INR 1.54 H D-Dimer ABG pH POC ABG pCO2 POC ABG pO2 ABG pO2 ABG HCO3 ABG Base Excess ABG Hemoglobin ABG Oxyhemoglobin ABG Sodium ABG Potassium ABG Chloride ABG Glucose Carboxyhemoglobin Sodium 134 L Potassium Chloride 93.7 L Carbon Dioxide BUN 46 H Creatinine 3.6 H Glucose 275 H POC Glucose Lactic Acid Calcium 7.7 L Phosphorus Ferritin Total Bilirubin 1.30 H Direct Bilirubin AST 5899 H ALT 6440 H Lactate Dehydrogenase Total Creatine Kinase Troponin T Total Protein 5.9 L Albumin 3.3 L Triglycerides Arterial Blood Glucose Arterial Blood Ionized Calcium Urine pH Urine Creatinine Salicylates Acetaminophen Coronavirus (PCR) 09/10/20 09/10/20 09/10/20 04:35 12:06 17:42 WBC RBC Hgb Hct MCHC RDW Lymph % (Auto) [place] % (Auto) Lymph # (Auto) [place] # (Auto) Seg Neutrophils % Seg Neuts % (Manual) Lymphocytes % (Manual) Monocytes % (Manual) Nucleated RBC % Seg Neutrophils # Seg Neutrophils # Man Lymphocytes # (Manual) Monocytes # (Manual) PT INR D-Dimer ABG pH 7.464 H POC ABG pCO2 POC ABG pO2 ABG pO2 ABG HCO3 ABG Base Excess ABG Hemoglobin 9.9 L ABG Oxyhemoglobin ABG Sodium 131.6 L ABG Potassium ABG Chloride 97.0 L ABG Glucose 281 H Carboxyhemoglobin 0.1 L Sodium Potassium Chloride Carbon Dioxide BUN Creatinine Glucose POC Glucose 298 H 340 H Lactic Acid Calcium Phosphorus Ferritin Total Bilirubin Direct Bilirubin AST ALT Lactate Dehydrogenase Total Creatine Kinase Troponin T Total Protein Albumin Triglycerides Arterial Blood Glucose 281 H Arterial Blood Ionized Calcium 3.9 L Urine pH Urine Creatinine Salicylates Acetaminophen Coronavirus (PCR) 09/10/20 09/11/20 09/11/20 23:07 04:44 05:17 WBC RBC Hgb Hct MCHC RDW Lymph % (Auto) [place] % (Auto) Lymph # (Auto) [place] # (Auto) Seg Neutrophils % Seg Neuts % (Manual) Lymphocytes % (Manual) Monocytes % (Manual) Nucleated RBC % Seg Neutrophils # Seg Neutrophils # Man Lymphocytes # (Manual) Monocytes # (Manual) PT 16.9 H INR 1.39 H D-Dimer ABG pH POC ABG pCO2 POC ABG pO2 ABG pO2 ABG HCO3 ABG Base Excess ABG Hemoglobin ABG Oxyhemoglobin ABG Sodium ABG Potassium ABG Chloride ABG Glucose Carboxyhemoglobin Sodium Potassium Chloride Carbon Dioxide BUN Creatinine Glucose POC Glucose 367 H 416 H Lactic Acid Calcium Phosphorus Ferritin Total Bilirubin Direct Bilirubin AST ALT Lactate Dehydrogenase Total Creatine Kinase Troponin T Total Protein Albumin Triglycerides Arterial Blood Glucose Arterial Blood Ionized Calcium Urine pH Urine Creatinine Salicylates Acetaminophen Coronavirus (PCR) 09/11/20 09/11/20 09/11/20 05:40 12:01 17:50 WBC RBC Hgb Hct MCHC RDW Lymph % (Auto) [place] % (Auto) Lymph # (Auto) [place] # (Auto) Seg Neutrophils % Seg Neuts % (Manual) Lymphocytes % (Manual) Monocytes % (Manual) Nucleated RBC % Seg Neutrophils # Seg Neutrophils # Man Lymphocytes # (Manual) Monocytes # (Manual) PT INR D-Dimer ABG pH 7.543 H POC ABG pCO2 POC ABG pO2 ABG pO2 112.1 H ABG HCO3 28.1 H ABG Base Excess 5.4 H ABG Hemoglobin 8.4 L ABG Oxyhemoglobin ABG Sodium ABG Potassium ABG Chloride ABG Glucose Carboxyhemoglobin Sodium Potassium Chloride Carbon Dioxide BUN Creatinine Glucose POC Glucose 418 H 404 H Lactic Acid Calcium Phosphorus Ferritin Total Bilirubin Direct Bilirubin AST ALT Lactate Dehydrogenase Total Creatine Kinase Troponin T Total Protein Albumin Triglycerides Arterial Blood Glucose Arterial Blood Ionized Calcium Urine pH Urine Creatinine Salicylates Acetaminophen Coronavirus (PCR) 09/11/20 09/11/20 09/12/20 23:10 23:43 03:15 WBC RBC Hgb Hct MCHC RDW Lymph % (Auto) [place] % (Auto) Lymph # (Auto) [place] # (Auto) Seg Neutrophils % Seg Neuts % (Manual) Lymphocytes % (Manual) Monocytes % (Manual) Nucleated RBC % Seg Neutrophils # Seg Neutrophils # Man Lymphocytes # (Manual) Monocytes # (Manual) PT INR D-Dimer ABG pH POC ABG pCO2 POC ABG pO2 ABG pO2 ABG HCO3 ABG Base Excess ABG Hemoglobin ABG Oxyhemoglobin ABG Sodium ABG Potassium ABG Chloride ABG Glucose Carboxyhemoglobin Sodium 135 L Potassium Chloride 92.3 L Carbon Dioxide BUN 62 H Creatinine 3.7 H Glucose 406 H POC Glucose 372 H 359 H Lactic Acid Calcium Phosphorus Ferritin Total Bilirubin Direct Bilirubin AST 687 H ALT 3701 H Lactate Dehydrogenase Total Creatine Kinase Troponin T Total Protein 5.8 L Albumin 3.1 L Triglycerides Arterial Blood Glucose Arterial Blood Ionized Calcium Urine pH Urine Creatinine Salicylates Acetaminophen Coronavirus (PCR) 09/12/20 09/12/20 09/12/20 03:18 04:00 04:00 WBC 13.7 H RBC 3.30 L Hgb 9.3 L Hct 27.6 L MCHC RDW 17.5 H Lymph % (Auto) [place] % (Auto) Lymph # (Auto) [place] # (Auto) Seg Neutrophils % Seg Neuts % (Manual) 76.0 H Lymphocytes % (Manual) 11.0 L Monocytes % (Manual) 13.0 H Nucleated RBC % Seg Neutrophils # Seg Neutrophils # Man 10.4 H Lymphocytes # (Manual) Monocytes # (Manual) 1.8 H PT 16.1 H INR 1.31 H D-Dimer ABG pH 7.558 H POC ABG pCO2 POC ABG pO2 74.7 L ABG pO2 ABG HCO3 ABG Base Excess ABG Hemoglobin 9.7 L ABG Oxyhemoglobin ABG Sodium 132.4 L ABG Potassium ABG Chloride 95.0 L ABG Glucose 437 H Carboxyhemoglobin Sodium Potassium Chloride Carbon Dioxide BUN Creatinine Glucose POC Glucose Lactic Acid Calcium Phosphorus Ferritin Total Bilirubin Direct Bilirubin AST ALT Lactate Dehydrogenase Total Creatine Kinase Troponin T Total Protein Albumin Triglycerides Arterial Blood Glucose 437 H Arterial Blood Ionized Calcium 4.3 L Urine pH Urine Creatinine Salicylates Acetaminophen Coronavirus (PCR) 09/12/20 09/12/20 09/12/20 04:21 05:20 06:37 WBC RBC Hgb Hct MCHC RDW Lymph % (Auto) [place] % (Auto) Lymph # (Auto) [place] # (Auto) Seg Neutrophils % Seg Neuts % (Manual) Lymphocytes % (Manual) Monocytes % (Manual) Nucleated RBC % Seg Neutrophils # Seg Neutrophils # Man Lymphocytes # (Manual) Monocytes # (Manual) PT INR D-Dimer ABG pH POC ABG pCO2 POC ABG pO2 ABG pO2 ABG HCO3 ABG Base Excess ABG Hemoglobin ABG Oxyhemoglobin ABG Sodium ABG Potassium ABG Chloride ABG Glucose Carboxyhemoglobin Sodium Potassium Chloride Carbon Dioxide BUN Creatinine Glucose POC Glucose 417 H 397 H 370 H Lactic Acid Calcium Phosphorus Ferritin Total Bilirubin Direct Bilirubin AST ALT Lactate Dehydrogenase Total Creatine Kinase Troponin T Total Protein Albumin Triglycerides Arterial Blood Glucose Arterial Blood Ionized Calcium Urine pH Urine Creatinine Salicylates Acetaminophen Coronavirus (PCR) 09/12/20 09/12/20 09/12/20 11:56 17:14 21:52 WBC RBC Hgb Hct MCHC RDW Lymph % (Auto) [place] % (Auto) Lymph # (Auto) [place] # (Auto) Seg Neutrophils % Seg Neuts % (Manual) Lymphocytes % (Manual) Monocytes % (Manual) Nucleated RBC % Seg Neutrophils # Seg Neutrophils # Man Lymphocytes # (Manual) Monocytes # (Manual) PT INR D-Dimer ABG pH POC ABG pCO2 POC ABG pO2 ABG pO2 ABG HCO3 ABG Base Excess ABG Hemoglobin ABG Oxyhemoglobin ABG Sodium ABG Potassium ABG Chloride ABG Glucose Carboxyhemoglobin Sodium Potassium Chloride Carbon Dioxide BUN Creatinine Glucose POC Glucose 341 H 325 H 285 H Lactic Acid Calcium Phosphorus Ferritin Total Bilirubin Direct Bilirubin AST ALT Lactate Dehydrogenase Total Creatine Kinase Troponin T Total Protein Albumin Triglycerides Arterial Blood Glucose Arterial Blood Ionized Calcium Urine pH Urine Creatinine Salicylates Acetaminophen Coronavirus (PCR) 09/12/20 09/12/20 09/12/20 23:39 Unknown Unknown WBC RBC Hgb Hct MCHC RDW Lymph % (Auto) [place] % (Auto) Lymph # (Auto) [place] # (Auto) Seg Neutrophils % Seg Neuts % (Manual) Lymphocytes % (Manual) Monocytes % (Manual) Nucleated RBC % Seg Neutrophils # Seg Neutrophils # Man Lymphocytes # (Manual) Monocytes # (Manual) PT INR D-Dimer ABG pH POC ABG pCO2 POC ABG pO2 ABG pO2 ABG HCO3 ABG Base Excess ABG Hemoglobin ABG Oxyhemoglobin ABG Sodium ABG Potassium ABG Chloride ABG Glucose Carboxyhemoglobin Sodium 135 L Potassium Chloride 92.2 L Carbon Dioxide BUN 65 H Creatinine 3.5 H Glucose 418 H POC Glucose 338 H Lactic Acid Calcium Phosphorus Ferritin Total Bilirubin Direct Bilirubin AST 553 H ALT 3453 H Lactate Dehydrogenase Total Creatine Kinase Troponin T Total Protein 5.9 L Albumin 3.0 L Triglycerides 220 H Arterial Blood Glucose Arterial Blood Ionized Calcium Urine pH Urine Creatinine Salicylates Acetaminophen Coronavirus (PCR) 09/13/20 09/13/20 09/13/20 04:47 05:24 10:50 WBC RBC Hgb Hct MCHC RDW Lymph % (Auto) [place] % (Auto) Lymph # (Auto) [place] # (Auto) Seg Neutrophils % Seg Neuts % (Manual) Lymphocytes % (Manual) Monocytes % (Manual) Nucleated RBC % Seg Neutrophils # Seg Neutrophils # Man Lymphocytes # (Manual) Monocytes # (Manual) PT INR D-Dimer ABG pH 7.571 H POC ABG pCO2 POC ABG pO2 69.0 L ABG pO2 ABG HCO3 ABG Base Excess ABG Hemoglobin 10.1 L ABG Oxyhemoglobin 93.2 L ABG Sodium 134.0 L ABG Potassium ABG Chloride ABG Glucose 365 H Carboxyhemoglobin 0.4 L Sodium Potassium Chloride 96.6 L Carbon Dioxide 32 H BUN 76 H Creatinine 3.1 H Glucose 395 H POC Glucose 329 H Lactic Acid Calcium Phosphorus Ferritin Total Bilirubin Direct Bilirubin AST ALT Lactate Dehydrogenase Total Creatine Kinase Troponin T Total Protein Albumin Triglycerides Arterial Blood Glucose 365 H Arterial Blood Ionized Calcium Urine pH Urine Creatinine Salicylates Acetaminophen Coronavirus (PCR) 09/13/20 09/13/20 09/13/20 11:39 17:48 23:35 WBC RBC Hgb Hct MCHC RDW Lymph % (Auto) [place] % (Auto) Lymph # (Auto) [place] # (Auto) Seg Neutrophils % Seg Neuts % (Manual) Lymphocytes % (Manual) Monocytes % (Manual) Nucleated RBC % Seg Neutrophils # Seg Neutrophils # Man Lymphocytes # (Manual) Monocytes # (Manual) PT INR D-Dimer ABG pH POC ABG pCO2 POC ABG pO2 ABG pO2 ABG HCO3 ABG Base Excess ABG Hemoglobin ABG Oxyhemoglobin ABG Sodium ABG Potassium ABG Chloride ABG Glucose Carboxyhemoglobin Sodium Potassium Chloride Carbon Dioxide BUN Creatinine Glucose POC Glucose 344 H 286 H 223 H Lactic Acid Calcium Phosphorus Ferritin Total Bilirubin Direct Bilirubin AST ALT Lactate Dehydrogenase Total Creatine Kinase Troponin T Total Protein Albumin Triglycerides Arterial Blood Glucose Arterial Blood Ionized Calcium Urine pH Urine Creatinine Salicylates Acetaminophen Coronavirus (PCR) 09/14/20 09/14/20 09/14/20 03:54 05:34 10:27 WBC RBC Hgb Hct MCHC RDW Lymph % (Auto) [place] % (Auto) Lymph # (Auto) [place] # (Auto) Seg Neutrophils % Seg Neuts % (Manual) Lymphocytes % (Manual) Monocytes % (Manual) Nucleated RBC % Seg Neutrophils # Seg Neutrophils # Man Lymphocytes # (Manual) Monocytes # (Manual) PT INR D-Dimer ABG pH POC ABG pCO2 POC ABG pO2 71.1 L ABG pO2 ABG HCO3 ABG Base Excess ABG Hemoglobin 10.3 L ABG Oxyhemoglobin ABG Sodium 135.2 L ABG Potassium ABG Chloride ABG Glucose 281 H Carboxyhemoglobin Sodium Potassium Chloride 96.6 L Carbon Dioxide BUN 100 H Creatinine 3.9 H Glucose 286 H POC Glucose 252 H Lactic Acid Calcium Phosphorus Ferritin Total Bilirubin Direct Bilirubin AST 145 H ALT 1400 H Lactate Dehydrogenase Total Creatine Kinase Troponin T Total Protein 5.6 L Albumin 2.9 L Triglycerides Arterial Blood Glucose 281 H Arterial Blood Ionized Calcium Urine pH Urine Creatinine Salicylates Acetaminophen Coronavirus (PCR) 09/14/20 09/14/20 09/14/20 11:38 17:52 23:07 WBC RBC Hgb Hct MCHC RDW Lymph % (Auto) [place] % (Auto) Lymph # (Auto) [place] # (Auto) Seg Neutrophils % Seg Neuts % (Manual) Lymphocytes % (Manual) Monocytes % (Manual) Nucleated RBC % Seg Neutrophils # Seg Neutrophils # Man Lymphocytes # (Manual) Monocytes # (Manual) PT INR D-Dimer ABG pH POC ABG pCO2 POC ABG pO2 ABG pO2 ABG HCO3 ABG Base Excess ABG Hemoglobin ABG Oxyhemoglobin ABG Sodium ABG Potassium ABG Chloride ABG Glucose Carboxyhemoglobin Sodium Potassium Chloride Carbon Dioxide BUN Creatinine Glucose POC Glucose 247 H 247 H 256 H Lactic Acid Calcium Phosphorus Ferritin Total Bilirubin Direct Bilirubin AST ALT Lactate Dehydrogenase Total Creatine Kinase Troponin T Total Protein Albumin Triglycerides Arterial Blood Glucose Arterial Blood Ionized Calcium Urine pH Urine Creatinine Salicylates Acetaminophen Coronavirus (PCR) 09/15/20 09/15/20 09/15/20 04:54 11:24 17:48 WBC RBC Hgb Hct MCHC RDW Lymph % (Auto) [place] % (Auto) Lymph # (Auto) [place] # (Auto) Seg Neutrophils % Seg Neuts % (Manual) Lymphocytes % (Manual) Monocytes % (Manual) Nucleated RBC % Seg Neutrophils # Seg Neutrophils # Man Lymphocytes # (Manual) Monocytes # (Manual) PT INR D-Dimer ABG pH POC ABG pCO2 POC ABG pO2 ABG pO2 ABG HCO3 ABG Base Excess ABG Hemoglobin ABG Oxyhemoglobin ABG Sodium ABG Potassium ABG Chloride ABG Glucose Carboxyhemoglobin Sodium Potassium Chloride Carbon Dioxide BUN Creatinine Glucose POC Glucose 271 H 228 H 254 H Lactic Acid Calcium Phosphorus Ferritin Total Bilirubin Direct Bilirubin AST ALT Lactate Dehydrogenase Total Creatine Kinase Troponin T Total Protein Albumin Triglycerides Arterial Blood Glucose Arterial Blood Ionized Calcium Urine pH Urine Creatinine Salicylates Acetaminophen Coronavirus (PCR) 09/15/20 09/15/20 09/15/20 19:20 19:20 23:13 WBC 27.3 H RBC 3.16 L Hgb 8.8 L Hct 27.0 L MCHC RDW 19.7 H Lymph % (Auto) [place] % (Auto) Lymph # (Auto) [place] # (Auto) Seg Neutrophils % Seg Neuts % (Manual) 81.0 H Lymphocytes % (Manual) 9.0 L Monocytes % (Manual) 10.0 H Nucleated RBC % Seg Neutrophils # Seg Neutrophils # Man 22.1 H Lymphocytes # (Manual) Monocytes # (Manual) 2.7 H PT INR D-Dimer ABG pH POC ABG pCO2 POC ABG pO2 ABG pO2 ABG HCO3 ABG Base Excess ABG Hemoglobin ABG Oxyhemoglobin ABG Sodium ABG Potassium ABG Chloride ABG Glucose Carboxyhemoglobin Sodium Potassium Chloride Carbon Dioxide BUN 68 H Creatinine 2.8 H Glucose 288 H POC Glucose 259 H Lactic Acid Calcium Phosphorus Ferritin Total Bilirubin Direct Bilirubin AST ALT Lactate Dehydrogenase Total Creatine Kinase Troponin T Total Protein Albumin Triglycerides Arterial Blood Glucose Arterial Blood Ionized Calcium Urine pH Urine Creatinine Salicylates Acetaminophen Coronavirus (PCR) 09/16/20 09/16/20 09/16/20 05:27 09:40 11:48 WBC RBC Hgb Hct MCHC RDW Lymph % (Auto) [place] % (Auto) Lymph # (Auto) [place] # (Auto) Seg Neutrophils % Seg Neuts % (Manual) Lymphocytes % (Manual) Monocytes % (Manual) Nucleated RBC % Seg Neutrophils # Seg Neutrophils # Man Lymphocytes # (Manual) Monocytes # (Manual) PT INR D-Dimer ABG pH POC ABG pCO2 POC ABG pO2 ABG pO2 ABG HCO3 ABG Base Excess ABG Hemoglobin ABG Oxyhemoglobin ABG Sodium ABG Potassium ABG Chloride ABG Glucose Carboxyhemoglobin Sodium Potassium Chloride Carbon Dioxide 31 H BUN 77 H Creatinine 2.9 H Glucose 250 H POC Glucose 275 H 234 H Lactic Acid Calcium Phosphorus Ferritin Total Bilirubin Direct Bilirubin AST ALT Lactate Dehydrogenase Total Creatine Kinase Troponin T Total Protein Albumin Triglycerides Arterial Blood Glucose Arterial Blood Ionized Calcium Urine pH Urine Creatinine Salicylates Acetaminophen Coronavirus (PCR) 09/16/20 09/16/20 09/17/20 17:40 23:23 00:01 WBC RBC Hgb Hct MCHC RDW Lymph % (Auto) [place] % (Auto) Lymph # (Auto) [place] # (Auto) Seg Neutrophils % Seg Neuts % (Manual) Lymphocytes % (Manual) Monocytes % (Manual) Nucleated RBC % Seg Neutrophils # Seg Neutrophils # Man Lymphocytes # (Manual) Monocytes # (Manual) PT INR D-Dimer ABG pH POC ABG pCO2 POC ABG pO2 ABG pO2 ABG HCO3 ABG Base Excess ABG Hemoglobin ABG Oxyhemoglobin ABG Sodium ABG Potassium ABG Chloride ABG Glucose Carboxyhemoglobin Sodium Potassium Chloride Carbon Dioxide BUN Creatinine Glucose POC Glucose 172 H 161 H Lactic Acid 2.10 H* Calcium Phosphorus Ferritin Total Bilirubin Direct Bilirubin AST ALT Lactate Dehydrogenase Total Creatine Kinase Troponin T Total Protein Albumin Triglycerides Arterial Blood Glucose Arterial Blood Ionized Calcium Urine pH Urine Creatinine Salicylates Acetaminophen Coronavirus (PCR) 09/17/20 09/17/20 09/17/20 04:00 04:00 05:09 WBC 19.5 H RBC 3.03 L Hgb 8.6 L Hct 26.3 L MCHC RDW 19.4 H Lymph % (Auto) 8.7 L [place] % (Auto) 13.7 H Lymph # (Auto) [place] # (Auto) 2.7 H Seg Neutrophils % 76.9 H Seg Neuts % (Manual) Lymphocytes % (Manual) Monocytes % (Manual) Nucleated RBC % Seg Neutrophils # 15.0 H Seg Neutrophils # Man Lymphocytes # (Manual) Monocytes # (Manual) PT INR D-Dimer ABG pH POC ABG pCO2 POC ABG pO2 ABG pO2 ABG HCO3 ABG Base Excess ABG Hemoglobin ABG Oxyhemoglobin ABG Sodium ABG Potassium ABG Chloride ABG Glucose Carboxyhemoglobin Sodium 146 H Potassium 3.1 L Chloride Carbon Dioxide BUN 79 H Creatinine 2.6 H Glucose 122 H POC Glucose 116 H Lactic Acid Calcium Phosphorus Ferritin Total Bilirubin Direct Bilirubin AST 64 H ALT 516 H Lactate Dehydrogenase Total Creatine Kinase Troponin T Total Protein 5.7 L Albumin 2.8 L Triglycerides Arterial Blood Glucose Arterial Blood Ionized Calcium Urine pH Urine Creatinine Salicylates Acetaminophen Coronavirus (PCR) 09/17/20 09/17/20 09/18/20 13:52 17:38 05:16 WBC RBC Hgb Hct MCHC RDW Lymph % (Auto) [place] % (Auto) Lymph # (Auto) [place] # (Auto) Seg Neutrophils % Seg Neuts % (Manual) Lymphocytes % (Manual) Monocytes % (Manual) Nucleated RBC % Seg Neutrophils # Seg Neutrophils # Man Lymphocytes # (Manual) Monocytes # (Manual) PT INR D-Dimer ABG pH POC ABG pCO2 POC ABG pO2 ABG pO2 ABG HCO3 ABG Base Excess ABG Hemoglobin ABG Oxyhemoglobin ABG Sodium ABG Potassium ABG Chloride ABG Glucose Carboxyhemoglobin Sodium Potassium Chloride Carbon Dioxide BUN Creatinine Glucose POC Glucose 68 L 126 H Lactic Acid 2.90 H* Calcium Phosphorus Ferritin Total Bilirubin Direct Bilirubin AST ALT Lactate Dehydrogenase Total Creatine Kinase Troponin T Total Protein Albumin Triglycerides Arterial Blood Glucose Arterial Blood Ionized Calcium Urine pH Urine Creatinine Salicylates Acetaminophen Coronavirus (PCR) 09/18/20 09/18/20 09/18/20 05:30 05:30 11:42 WBC 18.2 H RBC 3.18 L Hgb 9.0 L Hct 27.2 L MCHC RDW 18.8 H Lymph % (Auto) [place] % (Auto) Lymph # (Auto) [place] # (Auto) Seg Neutrophils % Seg Neuts % (Manual) Lymphocytes % (Manual) Monocytes % (Manual) Nucleated RBC % Seg Neutrophils # Seg Neutrophils # Man Lymphocytes # (Manual) Monocytes # (Manual) PT INR D-Dimer ABG pH POC ABG pCO2 POC ABG pO2 ABG pO2 ABG HCO3 ABG Base Excess ABG Hemoglobin ABG Oxyhemoglobin ABG Sodium ABG Potassium ABG Chloride ABG Glucose Carboxyhemoglobin Sodium Potassium 3.1 L Chloride Carbon Dioxide BUN 73 H Creatinine 2.6 H Glucose 154 H POC Glucose 140 H Lactic Acid Calcium Phosphorus Ferritin Total Bilirubin Direct Bilirubin AST ALT Lactate Dehydrogenase Total Creatine Kinase Troponin T Total Protein Albumin Triglycerides Arterial Blood Glucose Arterial Blood Ionized Calcium Urine pH Urine Creatinine Salicylates Acetaminophen Coronavirus (PCR) 09/18/20 09/18/20 09/19/20 18:15 23:37 05:13 WBC 22.8 H RBC 3.30 L Hgb 9.2 L Hct 28.1 L MCHC RDW 18.2 H Lymph % (Auto) [place] % (Auto) Lymph # (Auto) [place] # (Auto) Seg Neutrophils % Seg Neuts % (Manual) 87.0 H Lymphocytes % (Manual) 5.0 L Monocytes % (Manual) Nucleated RBC % Seg Neutrophils # Seg Neutrophils # Man 19.8 H Lymphocytes # (Manual) 1.1 L Monocytes # (Manual) 1.6 H PT INR D-Dimer ABG pH POC ABG pCO2 POC ABG pO2 ABG pO2 ABG HCO3 ABG Base Excess ABG Hemoglobin ABG Oxyhemoglobin ABG Sodium ABG Potassium ABG Chloride ABG Glucose Carboxyhemoglobin Sodium Potassium Chloride Carbon Dioxide BUN Creatinine Glucose POC Glucose 149 H 153 H Lactic Acid Calcium Phosphorus Ferritin Total Bilirubin Direct Bilirubin AST ALT Lactate Dehydrogenase Total Creatine Kinase Troponin T Total Protein Albumin Triglycerides Arterial Blood Glucose Arterial Blood Ionized Calcium Urine pH Urine Creatinine Salicylates Acetaminophen Coronavirus (PCR) 09/19/20 09/19/20 09/19/20 05:13 05:25 11:56 WBC RBC Hgb Hct MCHC RDW Lymph % (Auto) [place] % (Auto) Lymph # (Auto) [place] # (Auto) Seg Neutrophils % Seg Neuts % (Manual) Lymphocytes % (Manual) Monocytes % (Manual) Nucleated RBC % Seg Neutrophils # Seg Neutrophils # Man Lymphocytes # (Manual) Monocytes # (Manual) PT INR D-Dimer ABG pH POC ABG pCO2 POC ABG pO2 ABG pO2 ABG HCO3 ABG Base Excess ABG Hemoglobin ABG Oxyhemoglobin ABG Sodium ABG Potassium ABG Chloride ABG Glucose Carboxyhemoglobin Sodium Potassium Chloride Carbon Dioxide BUN 55 H Creatinine 2.3 H Glucose 196 H POC Glucose 168 H 137 H Lactic Acid Calcium Phosphorus Ferritin Total Bilirubin Direct Bilirubin AST ALT Lactate Dehydrogenase Total Creatine Kinase Troponin T Total Protein Albumin Triglycerides Arterial Blood Glucose Arterial Blood Ionized Calcium Urine pH Urine Creatinine Salicylates Acetaminophen Coronavirus (PCR) 09/19/20 09/19/20 09/20/20 17:43 23:43 05:02 WBC RBC Hgb Hct MCHC RDW Lymph % (Auto) [place] % (Auto) Lymph # (Auto) [place] # (Auto) Seg Neutrophils % Seg Neuts % (Manual) Lymphocytes % (Manual) Monocytes % (Manual) Nucleated RBC % Seg Neutrophils # Seg Neutrophils # Man Lymphocytes # (Manual) Monocytes # (Manual) PT INR D-Dimer ABG pH POC ABG pCO2 POC ABG pO2 ABG pO2 ABG HCO3 ABG Base Excess ABG Hemoglobin ABG Oxyhemoglobin ABG Sodium ABG Potassium ABG Chloride ABG Glucose Carboxyhemoglobin Sodium Potassium Chloride Carbon Dioxide BUN Creatinine Glucose POC Glucose 114 H 136 H 163 H Lactic Acid Calcium Phosphorus Ferritin Total Bilirubin Direct Bilirubin AST ALT Lactate Dehydrogenase Total Creatine Kinase Troponin T Total Protein Albumin Triglycerides Arterial Blood Glucose Arterial Blood Ionized Calcium Urine pH Urine Creatinine Salicylates Acetaminophen Coronavirus (PCR) 09/20/20 09/20/20 09/20/20 05:36 05:36 11:10 WBC 20.1 H RBC 3.07 L Hgb 8.5 L Hct 26.4 L MCHC RDW 18.6 H Lymph % (Auto) 9.6 L [place] % (Auto) 9.6 H Lymph # (Auto) [place] # (Auto) 1.9 H Seg Neutrophils % 79.0 H Seg Neuts % (Manual) Lymphocytes % (Manual) Monocytes % (Manual) Nucleated RBC % Seg Neutrophils # 15.9 H Seg Neutrophils # Man Lymphocytes # (Manual) Monocytes # (Manual) PT INR D-Dimer ABG pH POC ABG pCO2 POC ABG pO2 ABG pO2 ABG HCO3 ABG Base Excess ABG Hemoglobin ABG Oxyhemoglobin ABG Sodium ABG Potassium ABG Chloride ABG Glucose Carboxyhemoglobin Sodium Potassium 3.3 L Chloride Carbon Dioxide BUN 76 H Creatinine 3.6 H D Glucose 213 H POC Glucose 167 H Lactic Acid Calcium Phosphorus Ferritin Total Bilirubin Direct Bilirubin AST ALT Lactate Dehydrogenase Total Creatine Kinase Troponin T Total Protein Albumin Triglycerides Arterial Blood Glucose Arterial Blood Ionized Calcium Urine pH Urine Creatinine Salicylates Acetaminophen Coronavirus (PCR) 09/20/20 09/20/20 09/20/20 14:02 17:24 23:30 WBC RBC Hgb Hct MCHC RDW Lymph % (Auto) [place] % (Auto) Lymph # (Auto) [place] # (Auto) Seg Neutrophils % Seg Neuts % (Manual) Lymphocytes % (Manual) Monocytes % (Manual) Nucleated RBC % Seg Neutrophils # Seg Neutrophils # Man Lymphocytes # (Manual) Monocytes # (Manual) PT INR D-Dimer ABG pH POC ABG pCO2 POC ABG pO2 ABG pO2 ABG HCO3 ABG Base Excess ABG Hemoglobin ABG Oxyhemoglobin ABG Sodium ABG Potassium ABG Chloride ABG Glucose Carboxyhemoglobin Sodium Potassium Chloride Carbon Dioxide BUN Creatinine Glucose POC Glucose 164 H 146 H 147 H Lactic Acid Calcium Phosphorus Ferritin Total Bilirubin Direct Bilirubin AST ALT Lactate Dehydrogenase Total Creatine Kinase Troponin T Total Protein Albumin Triglycerides Arterial Blood Glucose Arterial Blood Ionized Calcium Urine pH Urine Creatinine Salicylates Acetaminophen Coronavirus (PCR) 09/21/20 09/21/20 09/21/20 05:00 05:00 05:24 WBC 17.4 H RBC 2.95 L Hgb 8.3 L Hct 25.8 L MCHC RDW 19.3 H Lymph % (Auto) 11.1 L [place] % (Auto) 11.1 H Lymph # (Auto) [place] # (Auto) 1.9 H Seg Neutrophils % 75.9 H Seg Neuts % (Manual) Lymphocytes % (Manual) Monocytes % (Manual) Nucleated RBC % Seg Neutrophils # 13.2 H Seg Neutrophils # Man Lymphocytes # (Manual) Monocytes # (Manual) PT INR D-Dimer ABG pH POC ABG pCO2 POC ABG pO2 ABG pO2 ABG HCO3 ABG Base Excess ABG Hemoglobin ABG Oxyhemoglobin ABG Sodium ABG Potassium ABG Chloride ABG Glucose Carboxyhemoglobin Sodium Potassium Chloride Carbon Dioxide BUN 60 H Creatinine 3.5 H Glucose 185 H POC Glucose 139 H Lactic Acid Calcium Phosphorus Ferritin Total Bilirubin Direct Bilirubin AST ALT Lactate Dehydrogenase Total Creatine Kinase Troponin T Total Protein Albumin Triglycerides Arterial Blood Glucose Arterial Blood Ionized Calcium Urine pH Urine Creatinine Salicylates Acetaminophen Coronavirus (PCR) 09/21/20 09/21/20 09/21/20 11:59 17:59 23:32 WBC RBC Hgb Hct MCHC RDW Lymph % (Auto) [place] % (Auto) Lymph # (Auto) [place] # (Auto) Seg Neutrophils % Seg Neuts % (Manual) Lymphocytes % (Manual) Monocytes % (Manual) Nucleated RBC % Seg Neutrophils # Seg Neutrophils # Man Lymphocytes # (Manual) Monocytes # (Manual) PT INR D-Dimer ABG pH POC ABG pCO2 POC ABG pO2 ABG pO2 ABG HCO3 ABG Base Excess ABG Hemoglobin ABG Oxyhemoglobin ABG Sodium ABG Potassium ABG Chloride ABG Glucose Carboxyhemoglobin Sodium Potassium Chloride Carbon Dioxide BUN Creatinine Glucose POC Glucose 183 H 141 H 162 H Lactic Acid Calcium Phosphorus Ferritin Total Bilirubin Direct Bilirubin AST ALT Lactate Dehydrogenase Total Creatine Kinase Troponin T Total Protein Albumin Triglycerides Arterial Blood Glucose Arterial Blood Ionized Calcium Urine pH Urine Creatinine Salicylates Acetaminophen Coronavirus (PCR) 09/22/20 09/22/20 09/22/20 05:32 12:07 17:53 WBC RBC Hgb Hct MCHC RDW Lymph % (Auto) [place] % (Auto) Lymph # (Auto) [place] # (Auto) Seg Neutrophils % Seg Neuts % (Manual) Lymphocytes % (Manual) Monocytes % (Manual) Nucleated RBC % Seg Neutrophils # Seg Neutrophils # Man Lymphocytes # (Manual) Monocytes # (Manual) PT INR D-Dimer ABG pH POC ABG pCO2 POC ABG pO2 ABG pO2 ABG HCO3 ABG Base Excess ABG Hemoglobin ABG Oxyhemoglobin ABG Sodium ABG Potassium ABG Chloride ABG Glucose Carboxyhemoglobin Sodium Potassium Chloride Carbon Dioxide BUN Creatinine Glucose POC Glucose 172 H 169 H 178 H Lactic Acid Calcium Phosphorus Ferritin Total Bilirubin Direct Bilirubin AST ALT Lactate Dehydrogenase Total Creatine Kinase Troponin T Total Protein Albumin Triglycerides Arterial Blood Glucose Arterial Blood Ionized Calcium Urine pH Urine Creatinine Salicylates Acetaminophen Coronavirus (PCR) 09/22/20 09/23/20 09/23/20 23:34 05:21 06:05 WBC RBC Hgb Hct MCHC RDW Lymph % (Auto) [place] % (Auto) Lymph # (Auto) [place] # (Auto) Seg Neutrophils % Seg Neuts % (Manual) Lymphocytes % (Manual) Monocytes % (Manual) Nucleated RBC % Seg Neutrophils # Seg Neutrophils # Man Lymphocytes # (Manual) Monocytes # (Manual) PT INR D-Dimer ABG pH POC ABG pCO2 POC ABG pO2 ABG pO2 ABG HCO3 ABG Base Excess ABG Hemoglobin ABG Oxyhemoglobin ABG Sodium ABG Potassium ABG Chloride ABG Glucose Carboxyhemoglobin Sodium 147 H Potassium Chloride 109.2 H Carbon Dioxide 21 L BUN 54 H Creatinine 4.2 H Glucose 193 H POC Glucose 151 H 168 H Lactic Acid Calcium Phosphorus Ferritin Total Bilirubin Direct Bilirubin AST ALT Lactate Dehydrogenase Total Creatine Kinase Troponin T Total Protein Albumin Triglycerides Arterial Blood Glucose Arterial Blood Ionized Calcium Urine pH Urine Creatinine Salicylates Acetaminophen Coronavirus (PCR) 09/23/20 09/23/20 09/23/20 12:30 17:52 23:16 WBC RBC Hgb Hct MCHC RDW Lymph % (Auto) [place] % (Auto) Lymph # (Auto) [place] # (Auto) Seg Neutrophils % Seg Neuts % (Manual) Lymphocytes % (Manual) Monocytes % (Manual) Nucleated RBC % Seg Neutrophils # Seg Neutrophils # Man Lymphocytes # (Manual) Monocytes # (Manual) PT INR D-Dimer ABG pH POC ABG pCO2 POC ABG pO2 ABG pO2 ABG HCO3 ABG Base Excess ABG Hemoglobin ABG Oxyhemoglobin ABG Sodium ABG Potassium ABG Chloride ABG Glucose Carboxyhemoglobin Sodium Potassium Chloride Carbon Dioxide BUN Creatinine Glucose POC Glucose 170 H 164 H 160 H Lactic Acid Calcium Phosphorus Ferritin Total Bilirubin Direct Bilirubin AST ALT Lactate Dehydrogenase Total Creatine Kinase Troponin T Total Protein Albumin Triglycerides Arterial Blood Glucose Arterial Blood Ionized Calcium Urine pH Urine Creatinine Salicylates Acetaminophen Coronavirus (PCR) 09/24/20 09/24/20 09/24/20 05:22 05:44 12:32 WBC RBC Hgb Hct MCHC RDW Lymph % (Auto) [place] % (Auto) Lymph # (Auto) [place] # (Auto) Seg Neutrophils % Seg Neuts % (Manual) Lymphocytes % (Manual) Monocytes % (Manual) Nucleated RBC % Seg Neutrophils # Seg Neutrophils # Man Lymphocytes # (Manual) Monocytes # (Manual) PT INR D-Dimer ABG pH POC ABG pCO2 POC ABG pO2 ABG pO2 ABG HCO3 ABG Base Excess ABG Hemoglobin ABG Oxyhemoglobin ABG Sodium ABG Potassium ABG Chloride ABG Glucose Carboxyhemoglobin Sodium 148 H Potassium Chloride 109.2 H Carbon Dioxide BUN 61 H Creatinine 4.9 H Glucose 176 H POC Glucose 150 H 165 H Lactic Acid Calcium Phosphorus Ferritin Total Bilirubin Direct Bilirubin AST ALT Lactate Dehydrogenase Total Creatine Kinase Troponin T Total Protein Albumin Triglycerides Arterial Blood Glucose Arterial Blood Ionized Calcium Urine pH Urine Creatinine Salicylates Acetaminophen Coronavirus (PCR) 09/24/20 09/24/20 09/25/20 17:28 23:18 05:18 WBC RBC Hgb Hct MCHC RDW Lymph % (Auto) [place] % (Auto) Lymph # (Auto) [place] # (Auto) Seg Neutrophils % Seg Neuts % (Manual) Lymphocytes % (Manual) Monocytes % (Manual) Nucleated RBC % Seg Neutrophils # Seg Neutrophils # Man Lymphocytes # (Manual) Monocytes # (Manual) PT INR D-Dimer ABG pH POC ABG pCO2 POC ABG pO2 ABG pO2 ABG HCO3 ABG Base Excess ABG Hemoglobin ABG Oxyhemoglobin ABG Sodium ABG Potassium ABG Chloride ABG Glucose Carboxyhemoglobin Sodium 149 H Potassium 3.3 L Chloride 109.6 H Carbon Dioxide BUN 70 H Creatinine 5.6 H Glucose 196 H POC Glucose 153 H 177 H Lactic Acid Calcium Phosphorus Ferritin Total Bilirubin Direct Bilirubin AST 55 H ALT 74 H Lactate Dehydrogenase Total Creatine Kinase Troponin T Total Protein Albumin 2.6 L Triglycerides Arterial Blood Glucose Arterial Blood Ionized Calcium Urine pH Urine Creatinine Salicylates Acetaminophen Coronavirus (PCR) 09/25/20 09/25/20 09/25/20 05:18 11:47 17:04 WBC RBC Hgb Hct MCHC RDW Lymph % (Auto) [place] % (Auto) Lymph # (Auto) [place] # (Auto) Seg Neutrophils % Seg Neuts % (Manual) Lymphocytes % (Manual) Monocytes % (Manual) Nucleated RBC % Seg Neutrophils # Seg Neutrophils # Man Lymphocytes # (Manual) Monocytes # (Manual) PT INR D-Dimer ABG pH POC ABG pCO2 POC ABG pO2 ABG pO2 ABG HCO3 ABG Base Excess ABG Hemoglobin ABG Oxyhemoglobin ABG Sodium ABG Potassium ABG Chloride ABG Glucose Carboxyhemoglobin Sodium Potassium Chloride Carbon Dioxide BUN Creatinine Glucose POC Glucose 159 H 169 H 142 H Lactic Acid Calcium Phosphorus Ferritin Total Bilirubin Direct Bilirubin AST ALT Lactate Dehydrogenase Total Creatine Kinase Troponin T Total Protein Albumin Triglycerides Arterial Blood Glucose Arterial Blood Ionized Calcium Urine pH Urine Creatinine Salicylates Acetaminophen Coronavirus (PCR) 09/25/20 09/26/20 09/26/20 23:20 04:00 05:00 WBC RBC 2.93 L Hgb 8.5 L Hct 25.8 L MCHC RDW 18.5 H Lymph % (Auto) [place] % (Auto) 11.3 H Lymph # (Auto) [place] # (Auto) 1.1 H Seg Neutrophils % 72.0 H Seg Neuts % (Manual) Lymphocytes % (Manual) Monocytes % (Manual) Nucleated RBC % Seg Neutrophils # Seg Neutrophils # Man Lymphocytes # (Manual) Monocytes # (Manual) PT INR D-Dimer ABG pH POC ABG pCO2 POC ABG pO2 ABG pO2 ABG HCO3 ABG Base Excess ABG Hemoglobin ABG Oxyhemoglobin ABG Sodium ABG Potassium ABG Chloride ABG Glucose Carboxyhemoglobin Sodium Potassium 3.4 L Chloride Carbon Dioxide BUN 49 H Creatinine 4.4 H Glucose 179 H POC Glucose 138 H Lactic Acid Calcium Phosphorus Ferritin Total Bilirubin Direct Bilirubin AST ALT Lactate Dehydrogenase Total Creatine Kinase Troponin T Total Protein Albumin Triglycerides Arterial Blood Glucose Arterial Blood Ionized Calcium Urine pH Urine Creatinine Salicylates Acetaminophen Coronavirus (PCR) 09/26/20 09/26/20 09/26/20 05:18 11:59 17:37 WBC RBC Hgb Hct MCHC RDW Lymph % (Auto) [place] % (Auto) Lymph # (Auto) [place] # (Auto) Seg Neutrophils % Seg Neuts % (Manual) Lymphocytes % (Manual) Monocytes % (Manual) Nucleated RBC % Seg Neutrophils # Seg Neutrophils # Man Lymphocytes # (Manual) Monocytes # (Manual) PT INR D-Dimer ABG pH POC ABG pCO2 POC ABG pO2 ABG pO2 ABG HCO3 ABG Base Excess ABG Hemoglobin ABG Oxyhemoglobin ABG Sodium ABG Potassium ABG Chloride ABG Glucose Carboxyhemoglobin Sodium Potassium Chloride Carbon Dioxide BUN Creatinine Glucose POC Glucose 155 H 165 H 132 H Lactic Acid Calcium Phosphorus Ferritin Total Bilirubin Direct Bilirubin AST ALT Lactate Dehydrogenase Total Creatine Kinase Troponin T Total Protein Albumin Triglycerides Arterial Blood Glucose Arterial Blood Ionized Calcium Urine pH Urine Creatinine Salicylates Acetaminophen Coronavirus (PCR) 09/26/20 09/27/20 09/27/20 23:35 04:47 04:47 WBC RBC 3.24 L Hgb 9.3 L Hct 28.6 L MCHC RDW 18.2 H Lymph % (Auto) [place] % (Auto) 11.6 H Lymph # (Auto) [place] # (Auto) 1.0 H Seg Neutrophils % Seg Neuts % (Manual) Lymphocytes % (Manual) Monocytes % (Manual) Nucleated RBC % Seg Neutrophils # Seg Neutrophils # Man Lymphocytes # (Manual) Monocytes # (Manual) PT INR D-Dimer ABG pH POC ABG pCO2 POC ABG pO2 ABG pO2 ABG HCO3 ABG Base Excess ABG Hemoglobin ABG Oxyhemoglobin ABG Sodium ABG Potassium ABG Chloride ABG Glucose Carboxyhemoglobin Sodium Potassium Chloride Carbon Dioxide BUN 54 H Creatinine 4.7 H Glucose 218 H POC Glucose 180 H Lactic Acid Calcium Phosphorus Ferritin Total Bilirubin Direct Bilirubin AST ALT Lactate Dehydrogenase Total Creatine Kinase Troponin T Total Protein Albumin Triglycerides Arterial Blood Glucose Arterial Blood Ionized Calcium Urine pH Urine Creatinine Salicylates Acetaminophen Coronavirus (PCR) 09/27/20 09/27/20 09/27/20 05:14 11:49 17:48 WBC RBC Hgb Hct MCHC RDW Lymph % (Auto) [place] % (Auto) Lymph # (Auto) [place] # (Auto) Seg Neutrophils % Seg Neuts % (Manual) Lymphocytes % (Manual) Monocytes % (Manual) Nucleated RBC % Seg Neutrophils # Seg Neutrophils # Man Lymphocytes # (Manual) Monocytes # (Manual) PT INR D-Dimer ABG pH POC ABG pCO2 POC ABG pO2 ABG pO2 ABG HCO3 ABG Base Excess ABG Hemoglobin ABG Oxyhemoglobin ABG Sodium ABG Potassium ABG Chloride ABG Glucose Carboxyhemoglobin Sodium Potassium Chloride Carbon Dioxide BUN Creatinine Glucose POC Glucose 197 H 219 H 203 H Lactic Acid Calcium Phosphorus Ferritin Total Bilirubin Direct Bilirubin AST ALT Lactate Dehydrogenase Total Creatine Kinase Troponin T Total Protein Albumin Triglycerides Arterial Blood Glucose Arterial Blood Ionized Calcium Urine pH Urine Creatinine Salicylates Acetaminophen Coronavirus (PCR) 09/27/20 09/28/20 09/28/20 23:26 05:28 07:02 WBC RBC Hgb Hct MCHC RDW Lymph % (Auto) [place] % (Auto) Lymph # (Auto) [place] # (Auto) Seg Neutrophils % Seg Neuts % (Manual) Lymphocytes % (Manual) Monocytes % (Manual) Nucleated RBC % Seg Neutrophils # Seg Neutrophils # Man Lymphocytes # (Manual) Monocytes # (Manual) PT INR D-Dimer ABG pH POC ABG pCO2 POC ABG pO2 ABG pO2 ABG HCO3 ABG Base Excess ABG Hemoglobin ABG Oxyhemoglobin ABG Sodium ABG Potassium ABG Chloride ABG Glucose Carboxyhemoglobin Sodium Potassium Chloride Carbon Dioxide BUN 37 H Creatinine 3.8 H Glucose 270 H POC Glucose 243 H 227 H Lactic Acid Calcium Phosphorus Ferritin Total Bilirubin Direct Bilirubin AST ALT Lactate Dehydrogenase Total Creatine Kinase Troponin T Total Protein Albumin Triglycerides Arterial Blood Glucose Arterial Blood Ionized Calcium Urine pH Urine Creatinine Salicylates Acetaminophen Coronavirus (PCR) 09/28/20 09/28/20 09/28/20 07:02 11:35 17:44 WBC RBC 3.26 L Hgb 9.3 L Hct 28.7 L MCHC RDW 18.5 H Lymph % (Auto) [place] % (Auto) 12.7 H Lymph # (Auto) [place] # (Auto) 1.1 H Seg Neutrophils % Seg Neuts % (Manual) Lymphocytes % (Manual) Monocytes % (Manual) Nucleated RBC % Seg Neutrophils # Seg Neutrophils # Man Lymphocytes # (Manual) Monocytes # (Manual) PT INR D-Dimer ABG pH POC ABG pCO2 POC ABG pO2 ABG pO2 ABG HCO3 ABG Base Excess ABG Hemoglobin ABG Oxyhemoglobin ABG Sodium ABG Potassium ABG Chloride ABG Glucose Carboxyhemoglobin Sodium Potassium Chloride Carbon Dioxide BUN Creatinine Glucose POC Glucose 230 H 237 H Lactic Acid Calcium Phosphorus Ferritin Total Bilirubin Direct Bilirubin AST ALT Lactate Dehydrogenase Total Creatine Kinase Troponin T Total Protein Albumin Triglycerides Arterial Blood Glucose Arterial Blood Ionized Calcium Urine pH Urine Creatinine Salicylates Acetaminophen Coronavirus (PCR) 09/28/20 09/29/20 09/29/20 23:52 05:11 05:20 WBC RBC Hgb Hct MCHC RDW Lymph % (Auto) [place] % (Auto) Lymph # (Auto) [place] # (Auto) Seg Neutrophils % Seg Neuts % (Manual) Lymphocytes % (Manual) Monocytes % (Manual) Nucleated RBC % Seg Neutrophils # Seg Neutrophils # Man Lymphocytes # (Manual) Monocytes # (Manual) PT INR D-Dimer ABG pH POC ABG pCO2 POC ABG pO2 ABG pO2 ABG HCO3 ABG Base Excess ABG Hemoglobin ABG Oxyhemoglobin ABG Sodium ABG Potassium ABG Chloride ABG Glucose Carboxyhemoglobin Sodium Potassium Chloride Carbon Dioxide BUN 47 H Creatinine 4.2 H Glucose 289 H POC Glucose 261 H 254 H Lactic Acid Calcium Phosphorus Ferritin Total Bilirubin Direct Bilirubin AST ALT Lactate Dehydrogenase Total Creatine Kinase Troponin T Total Protein Albumin Triglycerides Arterial Blood Glucose Arterial Blood Ionized Calcium Urine pH Urine Creatinine Salicylates Acetaminophen Coronavirus (PCR) 09/29/20 09/29/20 09/29/20 05:20 11:55 17:13 WBC RBC 3.23 L Hgb 9.0 L Hct 27.7 L MCHC RDW 18.3 H Lymph % (Auto) 13.0 L [place] % (Auto) 13.8 H Lymph # (Auto) [place] # (Auto) 1.5 H Seg Neutrophils % 72.3 H Seg Neuts % (Manual) Lymphocytes % (Manual) Monocytes % (Manual) Nucleated RBC % Seg Neutrophils # Seg Neutrophils # Man Lymphocytes # (Manual) Monocytes # (Manual) PT INR D-Dimer ABG pH POC ABG pCO2 POC ABG pO2 ABG pO2 ABG HCO3 ABG Base Excess ABG Hemoglobin ABG Oxyhemoglobin ABG Sodium ABG Potassium ABG Chloride ABG Glucose Carboxyhemoglobin Sodium Potassium Chloride Carbon Dioxide BUN Creatinine Glucose POC Glucose 263 H 279 H Lactic Acid Calcium Phosphorus Ferritin Total Bilirubin Direct Bilirubin AST ALT Lactate Dehydrogenase Total Creatine Kinase Troponin T Total Protein Albumin Triglycerides Arterial Blood Glucose Arterial Blood Ionized Calcium Urine pH Urine Creatinine Salicylates Acetaminophen Coronavirus (PCR) 09/29/20 09/30/20 09/30/20 23:25 05:15 06:57 WBC RBC 3.14 L Hgb 9.0 L Hct 27.4 L MCHC RDW 18.5 H Lymph % (Auto) [place] % (Auto) Lymph # (Auto) [place] # (Auto) Seg Neutrophils % Seg Neuts % (Manual) Lymphocytes % (Manual) Monocytes % (Manual) 13.0 H Nucleated RBC % Seg Neutrophils # Seg Neutrophils # Man Lymphocytes # (Manual) Monocytes # (Manual) 1.1 H PT INR D-Dimer ABG pH POC ABG pCO2 POC ABG pO2 ABG pO2 ABG HCO3 ABG Base Excess ABG Hemoglobin ABG Oxyhemoglobin ABG Sodium ABG Potassium ABG Chloride ABG Glucose Carboxyhemoglobin Sodium Potassium Chloride Carbon Dioxide BUN Creatinine Glucose POC Glucose 284 H 283 H Lactic Acid Calcium Phosphorus Ferritin Total Bilirubin Direct Bilirubin AST ALT Lactate Dehydrogenase Total Creatine Kinase Troponin T Total Protein Albumin Triglycerides Arterial Blood Glucose Arterial Blood Ionized Calcium Urine pH Urine Creatinine Salicylates Acetaminophen Coronavirus (PCR) 09/30/20 09/30/20 09/30/20 11:54 17:28 23:34 WBC RBC Hgb Hct MCHC RDW Lymph % (Auto) [place] % (Auto) Lymph # (Auto) [place] # (Auto) Seg Neutrophils % Seg Neuts % (Manual) Lymphocytes % (Manual) Monocytes % (Manual) Nucleated RBC % Seg Neutrophils # Seg Neutrophils # Man Lymphocytes # (Manual) Monocytes # (Manual) PT INR D-Dimer ABG pH POC ABG pCO2 POC ABG pO2 ABG pO2 ABG HCO3 ABG Base Excess ABG Hemoglobin ABG Oxyhemoglobin ABG Sodium ABG Potassium ABG Chloride ABG Glucose Carboxyhemoglobin Sodium Potassium Chloride Carbon Dioxide BUN Creatinine Glucose POC Glucose 288 H 262 H 258 H Lactic Acid Calcium Phosphorus Ferritin Total Bilirubin Direct Bilirubin AST ALT Lactate Dehydrogenase Total Creatine Kinase Troponin T Total Protein Albumin Triglycerides Arterial Blood Glucose Arterial Blood Ionized Calcium Urine pH Urine Creatinine Salicylates Acetaminophen Coronavirus (PCR) 10/01/20 10/01/20 10/01/20 04:33 04:49 05:30 WBC RBC 2.87 L Hgb 8.2 L Hct 24.9 L MCHC RDW 18.2 H Lymph % (Auto) [place] % (Auto) Lymph # (Auto) [place] # (Auto) 1.2 H Seg Neutrophils % Seg Neuts % (Manual) Lymphocytes % (Manual) Monocytes % (Manual) Nucleated RBC % Seg Neutrophils # Seg Neutrophils # Man Lymphocytes # (Manual) Monocytes # (Manual) PT INR D-Dimer ABG pH POC ABG pCO2 POC ABG pO2 ABG pO2 ABG HCO3 ABG Base Excess ABG Hemoglobin 10.0 L ABG Oxyhemoglobin ABG Sodium ABG Potassium ABG Chloride ABG Glucose 270 H Carboxyhemoglobin Sodium Potassium Chloride Carbon Dioxide BUN Creatinine Glucose POC Glucose 219 H Lactic Acid Calcium Phosphorus Ferritin Total Bilirubin Direct Bilirubin AST ALT Lactate Dehydrogenase Total Creatine Kinase Troponin T Total Protein Albumin Triglycerides Arterial Blood Glucose 270 H Arterial Blood Ionized Calcium Urine pH Urine Creatinine Salicylates Acetaminophen Coronavirus (PCR) 10/01/20 12:10 WBC RBC Hgb Hct MCHC RDW Lymph % (Auto) [place] % (Auto) Lymph # (Auto) [place] # (Auto) Seg Neutrophils % Seg Neuts % (Manual) Lymphocytes % (Manual) Monocytes % (Manual) Nucleated RBC % Seg Neutrophils # Seg Neutrophils # Man Lymphocytes # (Manual) Monocytes # (Manual) PT INR D-Dimer ABG pH POC ABG pCO2 POC ABG pO2 ABG pO2 ABG HCO3 ABG Base Excess ABG Hemoglobin ABG Oxyhemoglobin ABG Sodium ABG Potassium ABG Chloride ABG Glucose Carboxyhemoglobin Sodium Potassium Chloride Carbon Dioxide BUN Creatinine Glucose POC Glucose 266 H Lactic Acid Calcium Phosphorus Ferritin Total Bilirubin Direct Bilirubin AST ALT Lactate Dehydrogenase Total Creatine Kinase Troponin T Total Protein Albumin Triglycerides Arterial Blood Glucose Arterial Blood Ionized Calcium Urine pH Urine Creatinine Salicylates Acetaminophen Coronavirus (PCR)
[2020-10-02 01:29] LABS: Calcium 10.1 mg/dL (8.4-10.2)
[2020-10-02] MEDS: hydrALAZINE 25 MG TAB PO SCH ×3 (06:20→23:50)
[2020-10-02] MEDS: INSULIN LISPRO 100 UNIT/ML SUB-Q SCH ×3 (06:20→18:15)
--- NOTE | 2020-10-02 08:46 | Progress Note ---
Assessment and Plan Impression: * Nonoliguric RYAN secondary to ATN * Severe hyperkalemia - resolved * COVID 19 PNA * s/p OOH cardiac arrest * Acute hypoxic respiratory failure * Seizure activity * Anemia * Hypernatremia Plan: * Patient is nonoliguric, however, SCr trends upward in between dialysis sessions. Continue MWF for now. Will continue to monitor for renal recovery * Strict I/O * Keep MAP > 65 * Vent management per CCM * Steroids per primary team/ID * Dose medications for renal function * Avoid potential nephrotoxins * Prognosis is guarded Subjective Date of service: 10/02/20 Principal diagnosis: Abnormal LFTs, s/p cardiac arrest, acute kidney injury with ATN Interval history: Chart, vitals, labs reviewed. Objective - Vital Signs Vital signs: Vital Signs - 12hr 10/01/20 10/01/20 10/01/20 20:45 21:00 21:15 Temperature Pulse Rate 72 73 72 Pulse Rate [ From Monitor] Respiratory 42 H 40 H 39 H Rate Blood Pressure 123/49 121/48 118/52 O2 Sat by Pulse 100 99 Oximetry O2 Sat by Pulse Oximetry [ Assessment] 10/01/20 10/01/20 10/01/20 21:30 21:42 21:45 Temperature Pulse Rate 73 72 74 Pulse Rate [ From Monitor] Respiratory 39 H 37 H Rate Blood Pressure 119/49 119/49 118/50 O2 Sat by Pulse 99 100 Oximetry O2 Sat by Pulse Oximetry [ Assessment] 10/01/20 10/01/20 10/01/20 22:00 22:15 22:30 Temperature Pulse Rate 72 73 73 Pulse Rate [ From Monitor] Respiratory 37 H 36 H 37 H Rate Blood Pressure 124/50 121/49 126/49 O2 Sat by Pulse 100 98 98 Oximetry O2 Sat by Pulse Oximetry [ Assessment] 10/01/20 10/01/20 10/01/20 22:45 23:01 23:15 Temperature Pulse Rate 72 73 72 Pulse Rate [ From Monitor] Respiratory 36 H 36 H 36 H Rate Blood Pressure 120/49 120/49 122/48 O2 Sat by Pulse 100 100 99 Oximetry O2 Sat by Pulse Oximetry [ Assessment] 10/01/20 10/01/20 10/01/20 23:18 23:19 23:30 Temperature Pulse Rate 73 Pulse Rate [ From Monitor] Respiratory 37 H Rate Blood Pressure 127/49 O2 Sat by Pulse 100 100 Oximetry O2 Sat by Pulse 100 Oximetry [ Assessment] 10/01/20 10/02/20 10/02/20 23:45 00:00 00:03 Temperature 98.7 F Pulse Rate 73 73 74 Pulse Rate [ 74 From Monitor] Respiratory 37 H 39 H 41 H Rate Blood Pressure 116/48 117/49 117/49 O2 Sat by Pulse 100 99 100 Oximetry O2 Sat by Pulse Oximetry [ Assessment] 10/02/20 10/02/20 10/02/20 00:15 00:30 00:45 Temperature Pulse Rate 74 75 75 Pulse Rate [ From Monitor] Respiratory 40 H 37 H 35 H Rate Blood Pressure 121/49 118/46 119/49 O2 Sat by Pulse 98 98 100 Oximetry O2 Sat by Pulse Oximetry [ Assessment] 10/02/20 10/02/20 10/02/20 01:01 01:15 01:31 Temperature Pulse Rate 76 76 76 Pulse Rate [ From Monitor] Respiratory 38 H 39 H 39 H Rate Blood Pressure 127/48 128/46 121/45 O2 Sat by Pulse 99 99 99 Oximetry O2 Sat by Pulse Oximetry [ Assessment] 10/02/20 10/02/20 10/02/20 01:45 02:00 02:15 Temperature Pulse Rate 75 74 74 Pulse Rate [ From Monitor] Respiratory 37 H 25 H 37 H Rate Blood Pressure 117/47 126/47 121/52 O2 Sat by Pulse 100 100 100 Oximetry O2 Sat by Pulse Oximetry [ Assessment] 10/02/20 10/02/20 10/02/20 02:31 02:45 03:00 Temperature Pulse Rate 77 79 79 Pulse Rate [ From Monitor] Respiratory 31 H 39 H 42 H Rate Blood Pressure 124/49 126/48 121/48 O2 Sat by Pulse 95 100 99 Oximetry O2 Sat by Pulse Oximetry [ Assessment] 10/02/20 10/02/20 10/02/20 03:15 03:30 03:45 Temperature Pulse Rate 77 78 77 Pulse Rate [ From Monitor] Respiratory 39 H 39 H 42 H Rate Blood Pressure 121/48 137/62 129/61 O2 Sat by Pulse 100 100 Oximetry O2 Sat by Pulse Oximetry [ Assessment] 10/02/20 10/02/20 10/02/20 04:00 04:01 04:15 Temperature 99.0 F Pulse Rate 77 76 84 Pulse Rate [ 85 From Monitor] Respiratory 49 H 38 H 28 H Rate Blood Pressure 123/53 149/76 O2 Sat by Pulse 100 100 99 Oximetry O2 Sat by Pulse Oximetry [ Assessment] 10/02/20 10/02/20 10/02/20 04:30 04:45 05:00 Temperature Pulse Rate 83 85 85 Pulse Rate [ From Monitor] Respiratory 48 H 53 H 48 H Rate Blood Pressure 149/76 105/52 105/46 O2 Sat by Pulse 98 100 100 Oximetry O2 Sat by Pulse Oximetry [ Assessment] 10/02/20 10/02/20 10/02/20 05:15 05:30 05:45 Temperature Pulse Rate 85 85 84 Pulse Rate [ From Monitor] Respiratory 45 H 45 H 42 H Rate Blood Pressure 106/47 112/55 107/52 O2 Sat by Pulse 99 98 99 Oximetry O2 Sat by Pulse Oximetry [ Assessment] 10/02/20 10/02/20 10/02/20 06:00 06:15 06:20 Temperature Pulse Rate 85 88 88 Pulse Rate [ From Monitor] Respiratory 45 H 50 H Rate Blood Pressure 108/52 108/50 108/50 O2 Sat by Pulse 99 93 Oximetry O2 Sat by Pulse Oximetry [ Assessment] 10/02/20 10/02/20 10/02/20 06:31 06:45 07:00 Temperature Pulse Rate 88 87 89 Pulse Rate [ From Monitor] Respiratory 46 H 43 H 44 H Rate Blood Pressure 112/51 110/59 106/49 O2 Sat by Pulse 96 100 96 Oximetry O2 Sat by Pulse Oximetry [ Assessment] 10/02/20 10/02/20 10/02/20 07:15 07:23 07:30 Temperature 98.2 F Pulse Rate 90 91 H Pulse Rate [ From Monitor] Respiratory 44 H 45 H Rate Blood Pressure 110/55 103/56 O2 Sat by Pulse 97 97 Oximetry O2 Sat by Pulse Oximetry [ Assessment] 10/02/20 10/02/20 10/02/20 07:45 08:00 08:15 Temperature Pulse Rate 90 91 H 90 Pulse Rate [ 91 H From Monitor] Respiratory 40 H 35 H 44 H Rate Blood Pressure 105/43 107/51 110/52 O2 Sat by Pulse 97 98 98 Oximetry O2 Sat by Pulse Oximetry [ Assessment] - General Appearance General appearance: well-developed EENT: ATNC Neck: other (trach) Respiratory: Present: Clear to Ascultation Cardiology: regular, S1S2 Gastrointestinal: no tenderness, no distended Integumentary: warm and dry Musculoskeletal: other (no edema) - Lab 10/01/20 04:33 10/02/20 00:58 Most recent lab results ABG pH 7.433 (7.320-7.450) 10/01/20 04:49 ABG pCO2 33.4 mm Hg 09/11/20 05:40 ABG pO2 112.1 mm Hg (80.0-90.0) H 09/11/20 05:40 ABG HCO3 28.1 mmol/L (20.0-26.0) H 09/11/20 05:40 ABG O2 Saturation 98.4 % (95.0-99.0) 09/11/20 05:40 Calcium 10.1 mg/dL (8.4-10.2) 10/02/20 00:58 Phosphorus 8.00 mg/dL (2.5-4.5) H 09/08/20 12:02 Magnesium 1.80 mg/dL (1.7-2.3) 09/08/20 12:02 Urine Creatinine 182.4 mg/dL (0.1-20.0) H 09/08/20 Unknown Urine Sodium 40 mmol/L 09/08/20 Unknown Medications & Allergies - Medications Allergies/Adverse Reactions: Allergies No Known Allergies Allergy (Verified 09/21/20 21:00) Verified with , no known drug allergies. Home Medications: Home Medications Medication Instructions Recorded Confirmed Last Taken Type Albuterol Sulfate 60 mcg IH PRN 09/11/20 09/11/20 Unknown History Cholecalciferol (Vitamin D3) 25 tab PO DAILY 09/11/20 09/11/20 Unknown History Cozaar 25 tab PO DAILY 09/11/20 09/11/20 Unknown History HumaLOG 14 unit SQ AC 09/11/20 09/11/20 Unknown History Hydralazine HCl 50 tab PO TID 09/11/20 09/11/20 Unknown History Isosorbide Dinitrate 30 mg PO DAILY 09/11/20 09/11/20 Unknown History Lantus VIAL 54 units SQ HS 09/11/20 09/11/20 Unknown History Lasix 20 tab PO DAILY 09/11/20 09/11/20 Unknown History Nifedipine 30 tab PO DAILY 09/11/20 09/11/20 Unknown History Active Medications: Generic Name Dose Route Start Last Admin Trade Name Freq PRN Reason Stop Dose Admin Acetaminophen 650 mg 10/02/20 09:00 Acetaminophen 325 Mg/10.15 Ml Oral Liqd Unit Dose PO Q4HR PRN Non Cardiac Pain or Temp>100.5 Lipase/Protease/Amylase 1 each 09/09/20 09:40 Lipase 10,500/Protease 25,000/Amylase 43,750 (Units) Dr Armenta FEEDTUBE PRN PRN For Clogged Feeding Tube Hydralazine HCl 50 mg 09/23/20 14:00 10/02/20 06:20 Hydralazine 25 Mg Tab PO Not Given Q8HR TAYLOR Hydrophilic Ointment 1 applic 09/07/20 13:08 Lip Therapy Vaseline TP Q2HR PRN Dry Lips Sodium Chloride 100 mls @ 999 mls/hr 09/09/20 13:36 Nacl 0.9% IV JAYJAY PRN Hypotension Insulin Glargine 20 units 09/30/20 10:00 10/01/20 09:33 Insulin Glargine 100 Units/Ml SUB-Q 20 units DAILY TAYLOR Administration Insulin Human Lispro 0 unit 09/12/20 12:00 10/02/20 06:20 Insulin Lispro 100 Unit/Ml SUB-Q 6 unit Q6HR TAYLOR Administration Protocol Lansoprazole 30 mg 09/11/20 11:00 10/01/20 21:41 Lansoprazole 30 Mg Solutab FEEDTUBE 30 mg BID TAYLOR Administration Levetiracetam 1,500 mg 09/28/20 10:00 10/01/20 21:41 Levetiracetam 500 Mg/5 Ml Oral Liqd PO 1,500 mg BID TAYLOR Administration Lorazepam 2 mg 09/08/20 00:14 09/14/20 13:36 Lorazepam 2 Mg/Ml Vial IV 2 mg Q4H PRN Administration Seizures Multi-Ingred Cream/Lotion/Oil/Oint 1 applic 09/07/20 13:08 09/20/20 10:50 Mineral Oil/Petrolatum, White Ophth Oint 3.5 Gm OU 1 applic Q4HR PRN Administration Dry Eye(s) Multivitamins 5 ml 09/09/20 12:00 10/01/20 09:23 Multivitamins 5 Ml Oral Liquid PO 5 ml QDAY TAYLOR Administration Ondansetron HCl 4 mg 09/07/20 17:55 09/19/20 04:00 Ondansetron 4 Mg/2 Ml Inj IV 4 mg Q8H PRN Administration Nausea And Vomiting Senna/Docusate Sodium 2 tab 09/20/20 11:00 Sennosides/Docusate Sodium 8.6/50 Mg Tab PO BID PRN Laxative Effect Simple Syrup 15 ml 09/09/20 09:40 09/17/20 17:43 Simple Syrup 15 Ml FEEDTUBE 15 ml PRN PRN Administration Hypoglycemia Simple Syrup 30 ml 09/09/20 09:40 Simple Syrup 15 Ml FEEDTUBE PRN PRN Hypoglycemia Sodium Bicarbonate 325 mg 09/09/20 09:40 Sodium Bicarbonate 325 Mg Tab FEEDTUBE PRN PRN For Clogged Feeding Tube Sodium Chloride 10 ml 09/07/20 22:00 10/01/20 21:42 Sodium Chloride 0.9% 10 Ml Flush Syringe IV 10 ml BID TAYLOR Administration Sodium Chloride 10 ml 09/07/20 17:55 Sodium Chloride 0.9% 10 Ml Flush Syringe IV PRN PRN LINE FLUSH Valproic Acid 1,000 mg 09/28/20 10:00 10/01/20 21:41 Valproic Acid 250 Mg/5 Ml Oral Liqd FEEDTUBE 1,000 mg BID TAYLOR Administration
[2020-10-02] MEDS: VALPROIC ACID 250 MG/5 ML ORAL LIQD FEEDTUBE SCH (09:28)
[2020-10-02] MEDS: levETIRAcetam 500 MG/5 ML ORAL LIQD PO SCH (09:28)
[2020-10-02] MEDS: MULTIVITAMINS 5 ML ORAL LIQUID PO SCH (09:29)
[2020-10-02] MEDS: LANSOPRAZOLE 30 MG SOLUTAB FEEDTUBE SCH (09:29)
[2020-10-02] MEDS: INSULIN GLARGINE 100 UNITS/ML SUB-Q SCH (09:31)
--- NOTE | 2020-10-02 10:17 | Progress Note ---
Assessment and Plan Assessment and plan: S/p cardiopulmonary arrest (out of hospital) Toxic metabolic encephalopathy +/-anoxic injury Acute hypoxic respiratory failure Nonoliguric acute kidney injury secondary to ATN. Patient status post emergent hemodialysis 09/08. Seizure disorder Hyperkalemia Hypernatremia COVID-19 pneumonia Sepsis Transaminitis Morbid obesity. 09/15/2020. MRI brain for further evaluation. Continue AEDs of valproic acid and Keppra. Continue hemodialysis per nephrology recommendations. Overall prognosis remains guarded and poor. 09/16/2020. ID recommends continue to monitor patient off of antibiotics. Fever most likely of central etiology. Patient with questionable seizures versus myoclonus from anoxic brain injury. Patient unable to undergo MRI due to body habitus. Continue AEDs per neurology recommendations. Inflammatory markers elevated. Patient was recently hospitalized for COVID[facility] pneumonia [facility]. Patient not a candidate for remdesivir due to hepatic and renal failure. Viral hepatitis panel negative. Overall prognosis extremely poor. 09/17/2020. Fevers have resolved over the past 48 hours. Continue to monitor off antibiotics per ID recommendations. Patient with questionable seizures versus myoclonus from anoxic brain injury. Patient unable to undergo MRI due to body habitus. EEG is nonspecific but given CT of head findings consistent with anoxic encephalopathy, brain injury. Continue AEDs per neurology recommendations. Inflammatory markers elevated. Patient was recently hospitalized for COVID-19 pneumonia [facility]. Patient not a candidate for remdesivir due to hepatic and renal failure. Viral hepatitis panel negative. Patient is s/p emergent HD on Friday (hyperK) and Friday - 09/08. Patient also S/p HD 09/15. Continue hemodialysis per nephrology recommendations. Patient currently on AC/PRVC mode ventilation with rate of 30, tidal volume 475, FiO2 30% and PEEP of 6. As stated in neuro note, overall prognosis is very poor. 09/18/2020. Fevers have resolved over the past 72 hours. Continue to monitor off antibiotics per ID recommendations. Leukocytosis persistent for the past 4 days. Patient with questionable seizures/myoclonus from anoxic brain injury. Patient unable to undergo MRI due to body habitus. EEG is nonspecific but given CT of head findings consistent with anoxic encephalopathy, brain injury. Continue AEDs per neurology recommendations. Inflammatory markers elevated. Patient was recently hospitalized for [facility] pneumonia [facility]. Patient not a candidate for remdesivir due to hepatic and renal failure. Viral hepatitis panel negative. Patient currently on AC/PRVC mode ventilation with rate of 30, tidal volume 475, FiO2 30% and PEEP of 6. Overall prognosis remains guarded/poor. 09/19/2020 Fevers have resolved over the past 4 days. Continue to monitor off antibiotics per ID recommendations. Leukocytosis persistent for the past 4 days. Patient with questionable seizures/myoclonus from anoxic brain injury. Patient unable to undergo MRI due to body habitus. EEG is nonspecific but given CT of head findings consistent with anoxic encephalopathy, brain injury. Continue AEDs per neurology recommendations. Inflammatory markers elevated. Patient was recently hospitalized for [facility] pneumonia [facility]. Patient not a candidate for remdesivir due to hepatic and renal failure. Viral hepatitis panel negative. Patient currently on AC/PRVC mode ventilation with rate of 30, tidal volume 475, FiO2 30% and PEEP of 6. Overall prognosis remains guarded/poor. 09/20/2020 -Surgery consulted for PEG and trach, will continue to follow. 09/21/2020; patient will have PEG and trach by Dr. hayes today. Prognosis is poor. Continue with current management. Conveyor Loader is following for vent management. 09/22/2020; patient had PEG and trach yesterday. 09/23/2020; continue PEG Tube Feeding. 09/24/2020; continue PEG tube feeding, patient is on Keppra, lorazepam and phenyt oin per neurology recommendation. Patient is on hemodialysis and nephrology is following. Management of mechanical ventilation for CCM. 09/25/2020. Continue PEG tube feeding, patient is on Keppra, lorazepam and phenytoin per neurology recommendation. Patient is on hemodialysis and nephrology is following. Management of mechanical ventilation for CCM. Continue PSV/CPAP 07/16. Continue tracheostomy care, secretion control and airway management. 09/26/2020. Patient has tolerated PSV for approximately 48 hours. I discussed with pulmonary possibility of T-piece today. Continue tracheostomy care, secretion control and airway management. If patient tolerates T-piece trials, patient will be transferred to the floor. Continue AEDs of Keppra and phenytoin as well as Ativan as needed per neurology recommendations. Continue hemodialysis per nephrology. Continue TF with aspiration precautions. 09/27/2020. Patient continues to tolerate PSV 12/6 at 30% FiO2. T-piece trials per pulmonary. Continue tracheostomy care, secretion control and airway management. Continue AEDs of Keppra and phenytoin as well as Ativan as needed per neurology recommendations. Continue hemodialysis per nephrology. Continue TF with aspiration precautions. 09/28/2020. Patient for T-piece trials per pulmonary. Continue hemodialysis per nephrology. Continue tracheostomy care, secretion control and airway management. Continue AEDs of Keppra and phenytoin as well as Ativan as needed per neurology recommendations. Continue TF with aspiration precautions. 09/29/2020, continue T-piece trials per pulmonary. Continue hemodialysis per nephrology. Continue strict I/O's and labs daily. Monitor for renal recovery. 09/30/2020. Continue T-piece trials per pulmonary recommendations. Continue tracheostomy care, secretion control and airway management. Continue hemodialysis per nephrology. Tight glycemic control. Continue TF with aspiration precautions. 10/01/2020. Patient with T-piece trials and tolerating. Wean to trach collar per pulmonary. Continue tracheostomy care, secretion control and airway management. Continue hemodialysis per nephrology. Tight glycemic control. Continue TF with aspiration precautions. Case management consultation for placement 10/02/20. Continue T-piece trials per pulmonary recommendations. Continue tracheostomy care, secretion control and airway management. Continue hemodialysis per nephrology. Tight glycemic control. Continue TF with aspiration precautions. The high probability of a clinically significant, sudden or life threatening deterioration of the [cardiac, respiratory and neurological] system(s) required my full and direct attention, intervention and personal management. The aggregate critical care time was [31] minutes. This time is in addition to time spent performing reported procedures but includes the following: [x] Data Review and interpretation [x] Patient assessment and monitoring of vital signs [x] Documentation [x] Medication orders and management History Interval history: 65 y/o male with out of hospital cardiac arrest, acute hypoxic respiratory failure and COVID-19 infection. Hospitalist Physical - Constitutional Vitals: Temp Pulse Resp BP Pulse Ox 98.2 F 94 H 57 H 117/60 94 10/02/20 07:23 10/02/20 10:00 10/02/20 10:00 10/02/20 10:00 10/02/20 10:00 General appearance: Present: other (On mechanical ventilation) - EENT Eyes: Present: PERRL, EOM intact ENT: hearing intact, clear oral mucosa, dentition normal - Neck Neck: Present: supple, normal ROM - Respiratory Respiratory effort: normal Respiratory: bilateral: CTA - Cardiovascular Rhythm: regular Heart Sounds: Present: S1 & S2. Absent: gallop, rub - Extremities Extremities: no ischemia, No edema, Full ROM - Abdominal General gastrointestinal: soft, non-tender, non-distended, normal bowel sounds - Integumentary Integumentary: Present: clear, warm, dry - Neurologic Neurologic: CNII-XII intact, moves all extremities HEART Score - HEART Score Troponin: Troponin T 0.076 ng/mL (0.00-0.029) H 09/07/20 14:00 Results - Labs CBC & Chem 7: 10/01/20 04:33 10/02/20 00:58 Labs: Laboratory Last Values WBC 7.2 K/mm3 (4.5-11.0) 10/01/20 04:33 RBC 2.87 M/mm3 (3.65-5.03) L 10/01/20 04:33 Hgb 8.2 gm/dl (11.8-15.2) L 10/01/20 04:33 Hct 24.9 % (35.5-45.6) L 10/01/20 04:33 MCV 87 fl (84-94) 10/01/20 04:33 MCH 29 pg (28-32) 10/01/20 04:33 MCHC 33 % (32-34) 10/01/20 04:33 RDW 18.2 % (13.2-15.2) H 10/01/20 04:33 Plt Count 185 K/mm3 (140-440) 10/01/20 04:33 Lymph % (Auto) 27.0 % (13.4-35.0) 10/01/20 04:33 Atkinson % (Auto) Chief Airline Radio Operator 10/01/20 04:33 Eos % (Auto) 1.4 % (0.0-4.3) 10/01/20 04:33 Baso % (Auto) 0.3 % (0.0-1.8) 10/01/20 04:33 Lymph # (Auto) 1.9 K/mm3 (1.2-5.4) 10/01/20 04:33 Atkinson # (Auto) 1.2 K/mm3 (0.0-0.8) H 10/01/20 04:33 Eos # (Auto) 0.1 K/mm3 (0.0-0.4) 10/01/20 04:33 Baso # (Auto) 0.0 K/mm3 (0.0-0.1) 10/01/20 04:33 Add Manual Diff Complete 09/30/20 06:57 Total Counted 100 09/30/20 06:57 Seg Neutrophils % 54.7 % (40.0-70.0) 10/01/20 04:33 Seg Neuts % (Manual) 55.0 % (40.0-70.0) 09/30/20 06:57 Band Neutrophils % 8.0 % 09/30/20 06:57 Lymphocytes % (Manual) 23.0 % (13.4-35.0) 09/30/20 06:57 Monocytes % (Manual) 13.0 % (0.0-7.3) H 09/30/20 06:57 Eosinophils % (Manual) 2.0 % (0.0-4.3) 09/07/20 14:00 Basophils % (Manual) 1.0 % (0.0-1.8) 09/30/20 06:57 Metamyelocytes % 2.0 % 09/08/20 Unknown Nucleated RBC % Not Reportable 09/30/20 06:57 Seg Neutrophils # 3.9 K/mm3 (1.8-7.7) 10/01/20 04:33 Seg Neutrophils # Man 4.8 K/mm3 (1.8-7.7) 09/30/20 06:57 Band Neutrophils # 0.7 K/mm3 09/30/20 06:57 Lymphocytes # (Manual) 2.0 K/mm3 (1.2-5.4) 09/30/20 06:57 Abs React Lymphs (Man) 0.0 K/mm3 09/30/20 06:57 Monocytes # (Manual) 1.1 K/mm3 (0.0-0.8) H 09/30/20 06:57 Eosinophils # (Manual) 0.0 K/mm3 (0.0-0.4) 09/30/20 06:57 Basophils # (Manual) 0.1 K/mm3 (0.0-0.1) 09/30/20 06:57 Metamyelocytes # 0.0 K/mm3 09/30/20 06:57 Myelocytes # 0.0 K/mm3 09/30/20 06:57 Promyelocytes # 0.0 K/mm3 09/30/20 06:57 Blast Cells # 0.0 K/mm3 09/30/20 06:57 WBC Morphology Not Reportable 09/30/20 06:57 Hypersegmented Neuts Not Reportable 09/30/20 06:57 Hyposegmented Neuts Not Reportable 09/30/20 06:57 Hypogranular Neuts Not Reportable 09/30/20 06:57 Smudge Cells Not Reportable 09/30/20 06:57 Toxic Granulation Not Reportable 09/30/20 06:57 Toxic Vacuolation Not Reportable 09/30/20 06:57 Dohle Bodies Not Reportable 09/30/20 06:57 Pelger-Huet Anomaly Not Reportable 09/30/20 06:57 Justus Rods Not Reportable 09/30/20 06:57 Platelet Estimate Consistent w auto 09/30/20 06:57 Clumped Platelets Not Reportable 09/30/20 06:57 Plt Clumps, EDTA Not Reportable 09/30/20 06:57 Large Platelets Not Reportable 09/30/20 06:57 Giant Platelets Not Reportable 09/30/20 06:57 Platelet Satelliting Not Reportable 09/30/20 06:57 Plt Morphology Comment Not Reportable 09/30/20 06:57 RBC Morphology Not Reportable 09/30/20 06:57 Dimorphic RBCs Not Reportable 09/30/20 06:57 Polychromasia Not Reportable 09/30/20 06:57 Hypochromasia Not Reportable 09/30/20 06:57 Poikilocytosis Not Reportable 09/30/20 06:57 Anisocytosis Not Reportable 09/30/20 06:57 Microcytosis Not Reportable 09/30/20 06:57 Macrocytosis Not Reportable 09/30/20 06:57 Spherocytes Not Reportable 09/30/20 06:57 Pappenheimer Bodies Not Reportable 09/30/20 06:57 Sickle Cells Not Reportable 09/30/20 06:57 Target Cells Not Reportable 09/30/20 06:57 Tear Drop Cells Not Reportable 09/30/20 06:57 Ovalocytes Rare 09/30/20 06:57 Helmet Cells Not Reportable 09/30/20 06:57 [place] Bodies Not Reportable 09/30/20 06:57 Blanding Rings Not Reportable 09/30/20 06:57 [place] Cells Not Reportable 09/30/20 06:57 Bite Cells Not Reportable 09/30/20 06:57 Crenated Cell Not Reportable 09/30/20 06:57 Elliptocytes Not Reportable 09/30/20 06:57 Acanthocytes (Spur) Not Reportable 09/30/20 06:57 Rouleaux Not Reportable 09/30/20 06:57 Hemoglobin C Crystals Not Reportable 09/30/20 06:57 Schistocytes Not Reportable 09/30/20 06:57 Malaria parasites Not Reportable 09/30/20 06:57 [place] Bodies Not Reportable 09/30/20 06:57 Hem Pathologist Commnt No 09/30/20 06:57 PT 16.1 Sec. (12.2-14.9) H 09/12/20 04:00 INR 1.31 (0.87-1.13) H 09/12/20 04:00 APTT 32.4 Sec. (24.2-36.6) 09/09/20 10:00 D-Dimer 8315.85 ng/mlDDU (0-234) H 09/07/20 14:00 ABG pH 7.433 (7.320-7.450) 10/01/20 04:49 POC ABG pCO2 40.8 mmHg (32.0-48.0) 10/01/20 04:49 ABG pCO2 33.4 mm Hg 09/11/20 05:40 POC ABG pO2 88.4 mmHg (83-108) 10/01/20 04:49 ABG pO2 112.1 mm Hg (80.0-90.0) H 09/11/20 05:40 POC ABG HCO3 26.7 10/01/20 04:49 ABG HCO3 28.1 mmol/L (20.0-26.0) H 09/11/20 05:40 ABG O2 Saturation 98.4 % (95.0-99.0) 09/11/20 05:40 ABG O2 Content 11.6 (0.0-44) 09/11/20 05:40 POC ABG Base Excess 2.2 10/01/20 04:49 ABG Base Excess 5.4 mmol/L (-2.0-3.0) H 09/11/20 05:40 ABG Hemoglobin 10.0 (12.0-17.5) L 10/01/20 04:49 ABG Oxyhemoglobin 93.2 (94-98) L 09/13/20 04:47 ABG Carboxyhemoglobin 1.2 % (0.0-5.0) 09/11/20 05:40 ABG Methemoglobin 0.3 (0.0-1.5) 09/13/20 04:47 ABG Sodium 137.2 mmol/L (136.0-145.0) 10/01/20 04:49 ABG Potassium 3.8 mmol/L (3.40-4.50) 10/01/20 04:49 ABG Chloride 104.0 mmol/L (98-107) 10/01/20 04:49 ABG Glucose 270 mg/dL (65-95) H 10/01/20 04:49 Oxyhemoglobin 96.8 % (95.0-99.0) 09/11/20 05:40 Carboxyhemoglobin 0.4 (0.5-1.5) L 09/13/20 04:47 FiO2 35.0 10/01/20 04:49 Sodium 141 mmol/L (137-145) 10/02/20 00:58 Potassium 4.2 mmol/L (3.6-5.0) 10/02/20 00:58 Chloride 103.3 mmol/L (98-107) 10/02/20 00:58 Carbon Dioxide 27 mmol/L (22-30) 10/02/20 00:58 Anion Gap 15 mmol/L 10/02/20 00:58 BUN 58 mg/dL (9-20) H 10/02/20 00:58 Creatinine 5.0 mg/dL (0.8-1.3) H 10/02/20 00:58 Estimated GFR 14 ml/min 10/02/20 00:58 BUN/Creatinine Ratio 12 % 10/02/20 00:58 Glucose 324 mg/dL (75-100) H 10/02/20 00:58 POC Glucose 262 mg/dL (70-105) H 10/01/20 23:36 Lactic Acid 2.90 mmol/L (0.7-2.0) H* 09/17/20 13:52 Calcium 10.1 mg/dL (8.4-10.2) 10/02/20 00:58 Phosphorus 8.00 mg/dL (2.5-4.5) H 09/08/20 12:02 Magnesium 1.80 mg/dL (1.7-2.3) 09/08/20 12:02 Ferritin > 2000.0 ng/mL (30.0-300.0) H 09/07/20 14:00 Total Bilirubin 0.50 mg/dL (0.1-1.2) 09/25/20 05:18 Direct Bilirubin 0.5 mg/dL (0-0.2) H 09/08/20 05:00 Indirect Bilirubin 0.5 mg/dL 09/08/20 05:00 AST 55 units/L (5-40) H 09/25/20 05:18 ALT 74 units/L (7-56) H 09/25/20 05:18 Alkaline Phosphatase 81 units/L (35-129) 09/25/20 05:18 Ammonia 50.0 umol/L (25-60) 09/07/20 14:00 Lactate Dehydrogenase 882 units/L (91-180) H 09/07/20 14:00 Total Creatine Kinase 477 units/L (55-170) H 09/07/20 14:00 Troponin T 0.076 ng/mL (0.00-0.029) H 09/07/20 14:00 C-Reactive Protein 1.10 mg/dL (0.00-1.30) 09/07/20 14:00 Total Protein 7.0 g/dL (6.3-8.2) 09/25/20 05:18 Albumin 2.6 g/dL (3.9-5) L 09/25/20 05:18 Albumin/Globulin Ratio 0.6 % 09/25/20 05:18 Triglycerides 220 mg/dL (2-149) H 09/12/20 Unknown Procalcitonin 1.52 ng/mL (<0.15) 09/17/20 13:02 TSH 2.290 mlU/mL (0.270-4.200) 09/07/20 14:00 Arterial Blood Glucose 270 mg/dL (65-95) H 10/01/20 04:49 Arterial Blood Ionized Calcium 5.2 mg/dL (4.6-5.3) 10/01/20 04:49 Urine Color Straw (Yellow) 09/07/20 13:08 Urine Turbidity Slightly-cloudy (Clear) 09/07/20 13:08 Urine pH 8.0 (5.0-7.0) H 09/07/20 13:08 Ur Specific [place] 1.006 (1.003-1.030) 09/07/20 13:08 Urine Protein 100 mg/dl mg/dL (Negative) 09/07/20 13:08 Urine Glucose (UA) Neg mg/dL (Negative) 09/07/20 13:08 Urine Ketones Neg mg/dL (Negative) 09/07/20 13:08 Urine Blood Neg (Negative) 09/07/20 13:08 Urine Nitrite Neg (Negative) 09/07/20 13:08 Urine Bilirubin Neg (Negative) 09/07/20 13:08 Urine Urobilinogen < 2.0 mg/dL (<2.0) 09/07/20 13:08 Ur Leukocyte Esterase Neg (Negative) 09/07/20 13:08 Urine WBC (Auto) 4.0 /HPF (0.0-6.0) 09/07/20 13:08 Urine RBC (Auto) 18.0 /HPF (0.0-6.0) 09/07/20 13:08 U Epithel Cells (Auto) 1.0 /HPF (0-13.0) 09/07/20 13:08 Urine Mucus Few /HPF 09/07/20 13:08 Urine Sperm 3+ /HPF (AIR LIFT OPERATOR) 09/07/20 13:08 Urine Creatinine 182.4 mg/dL (0.1-20.0) H 09/08/20 Unknown Urine Sodium 40 mmol/L 09/08/20 Unknown Salicylates < 0.3 mg/dL (2.8-20.0) L 09/07/20 14:00 Acetaminophen 5.0 ug/mL (10.0-30.0) L 09/07/20 14:00 Plasma/Serum Alcohol < 0.01 % (0-0.07) 09/07/20 14:00 Coronavirus (PCR) Negative (Negative) 09/19/20 Unknown Hepatitis A IgM Ab Non-reactive (NonReactive) 09/07/20 14:00 Hep Bs Antigen Non-reactive (Negative) 09/07/20 14:00 Hep B Core IgM Ab Non-reactive (NonReactive) 09/07/20 14:00 Hepatitis C Antibody Non-reactive (NonReactive) 09/07/20 14:00 HIV 1&2 Antibody Rapid Non react (Non React) 09/07/20 14:34 HIV P24 Antigen Non react (Non React) 09/07/20 14:34 Blood Type O POSITIVE 09/09/20 10:00 Antibody Screen Negative 09/07/20 14:00 Mae/IV: Voiding Method Condom Catheter IV Catheter Type [Right Triple Lumen Cath Femoral] IV Catheter Type [Left Peripheral IV Antecubital] IV Catheter Type [Left Hand] Peripheral IV IV Catheter Type [Right Peripheral IV Antecubital] Active Medications - Current Medications Current Medications: Generic Name Dose Route Start Last Admin Trade Name Freq PRN Reason Stop Dose Admin Acetaminophen 650 mg 10/02/20 09:00 Acetaminophen 325 Mg/10.15 Ml Oral Liqd Unit Dose PO Q4HR PRN Non Cardiac Pain or Temp>100.5 Lipase/Protease/Amylase 1 each 09/09/20 09:40 Lipase 10,500/Protease 25,000/Amylase 43,750 (Units) Dr Armenta FEEDTUBE PRN PRN For Clogged Feeding Tube Hydralazine HCl 50 mg 09/23/20 14:00 10/02/20 06:20 Hydralazine 25 Mg Tab PO Not Given Q8HR TAYLOR Hydrophilic Ointment 1 applic 09/07/20 13:08 Lip Therapy Vaseline TP Q2HR PRN Dry Lips Sodium Chloride 100 mls @ 999 mls/hr 09/09/20 13:36 Nacl 0.9% IV JAYJAY PRN Hypotension Insulin Glargine 25 units 10/03/20 10:00 Insulin Glargine 100 Units/Ml SUB-Q DAILY TAYLOR Insulin Human Lispro 0 unit 09/12/20 12:00 10/02/20 06:20 Insulin Lispro 100 Unit/Ml SUB-Q 6 unit Q6HR TAYLOR Administration Protocol Lansoprazole 30 mg 09/11/20 11:00 10/02/20 09:29 Lansoprazole 30 Mg Solutab FEEDTUBE 30 mg BID TAYLOR Administration Levetiracetam 1,500 mg 09/28/20 10:00 10/02/20 09:28 Levetiracetam 500 Mg/5 Ml Oral Liqd PO 1,500 mg BID TAYLOR Administration Multi-Ingred Cream/Lotion/Oil/Oint 1 applic 09/07/20 13:08 09/20/20 10:50 Mineral Oil/Petrolatum, White Ophth Oint 3.5 Gm OU 1 applic Q4HR PRN Administration Dry Eye(s) Multivitamins 5 ml 09/09/20 12:00 10/02/20 09:29 Multivitamins 5 Ml Oral Liquid PO 5 ml QDAY TAYLOR Administration Ondansetron HCl 4 mg 09/07/20 17:55 09/19/20 04:00 Ondansetron 4 Mg/2 Ml Inj IV 4 mg Q8H PRN Administration Nausea And Vomiting Senna/Docusate Sodium 2 tab 09/20/20 11:00 Sennosides/Docusate Sodium 8.6/50 Mg Tab PO BID PRN Laxative Effect Simple Syrup 15 ml 09/09/20 09:40 09/17/20 17:43 Simple Syrup 15 Ml FEEDTUBE 15 ml PRN PRN Administration Hypoglycemia Simple Syrup 30 ml 09/09/20 09:40 Simple Syrup 15 Ml FEEDTUBE PRN PRN Hypoglycemia Sodium Bicarbonate 325 mg 09/09/20 09:40 Sodium Bicarbonate 325 Mg Tab FEEDTUBE PRN PRN For Clogged Feeding Tube Sodium Chloride 10 ml 09/07/20 22:00 10/02/20 09:29 Sodium Chloride 0.9% 10 Ml Flush Syringe IV 10 ml BID TAYLOR Administration Sodium Chloride 10 ml 09/07/20 17:55 Sodium Chloride 0.9% 10 Ml Flush Syringe IV PRN PRN LINE FLUSH Valproic Acid 1,000 mg 09/28/20 10:00 10/02/20 09:28 Valproic Acid 250 Mg/5 Ml Oral Liqd FEEDTUBE 1,000 mg BID TAYLOR Administration Nutrition/Malnutrition Assess - Dietary Evaluation Nutrition/Malnutrition Findings: Nutrition Notes Start: 09/08/20 12:01 Freq: Status: Active Protocol: Document 09/29/20 11:00 AL (Rec: 09/29/20 11:49 AL [id number]) Co-Sign 09/29/20 11:00 LP Nutrition Notes Initial or Follow up Reassessment Current Diagnosis Acute Kidney Injury, Respiratory Failure Other Pertinent Diagnosis on HD, cardiac arrest, COVID ( +), metabolic encephalopathy, pneu Current Diet Nepro 1.8 at 45 mL/hr (goal rate) Labs/Tests BUN 47 Cr 4.2 BG 289 Pertinent Medications Humalog Lantus Height 6 ft Weight 145.18 kg Justice Body Weight (kg) 80.90 BMI 43.4 Weight change and time frame wt change of 5.2 kg noted (3.6 %). Weight Status Morbidly Obese Subjective/Other Information Pt is tolerating TF at goal rate (45 ml/hr). Percent of energy/protein needs met: 99%/43% Burn Absent Trauma Absent GI Symptoms None Current % PO Negligible Minimum of two criteria No physical signs of malnutrition #2 Nutrition Diagnosis Increased nutrient needs ( specify in comment below) Diagnosis Progress(for reassessment Continues documentation) #1 Nutrition Diagnosis Inadequate oral intake Diagnosis Progress(for reassessment Continues documentation) Is patient on ventilator? Yes Is Patient Ambulatory and/or Out of Bed No REE-([facility]-confined to bed) 2740.164 Kcal/Kg value to use for calculation 13 Approximate Energy Requirements Using 1887 kcal/Kg Calculation Used for Recommendations Kcal/kg Additional Notes PRO needs: >202g (> 2.5g/kg IBW 80.9kg) Fluid needs are 1000-1500ml Nutrition Intervention Change Diet Order: TF Nutrition Support: Nepro at 45ml/hr Flush 200ml q4h for hypernatremia. 120ml q4h once resolved Kcal 1,944 Protein (gm) 87 Fluid (mL) 785 Goal #1 Meet kcal and protein needs as best as possible via TF Anticipated Discharge Needs: TF Follow-Up By: 10/03/20 Additional Comments Follow for stable TF
--- NOTE | 2020-10-02 13:02 | Progress Note ---
Assessment and Plan 65 y/o male with out of hospital cardiac arrest now sedated on ativan for possible seizures. 10/02/20: Will transfer out to floor. CM working on placement. 09/29/20: Please continue daily T-piece trials as tolerated over the weekend. Goals is to do 24 hours of T-piece. Once done stable for transfer out of the unit. Hold BP meds for now. MOnitor for fever cure or changes clinically other than change in blood pressure. Increased BID lantus to 20. May need more but can reassess tomorrow. My partner is covering this weekend. 09/28/20: T-piece again today. Will place official order to let patient stay on T-piece and to call if changes occur. HD MWF per renal. Poor prognosis for cognitive recovery. 09/27/20: T-piece trial again today. Will attempt to go 24 hours. Still needs HD per renal. This will be a barrier to discharge. CM knows and will discuss with administration. 09/26/20: Will do T-piece today. If tolerates the next 24 hours will move out of ICU. : PSV for the next 24 hours if tolerates. Restart feeds today at 10. Continue reglan. If tomorrow, same issues. Will change feeds, obtain GI c onsult. Continue antiepileptic therapy. 09/24/20: Continue Daily PSV, maybe ready for 24 hour trial. Antiepleptic therapy. Hold feeds today, suggest GI consult. Will discuss with Dietary on round tomorrow. 09/23/20: Daily PSV trials multiple times a day if needed. Antiepileptic therapy. Resume tube feeds today. 09/22/20: PSV trial today as tolerated and every day from this day forward. NO sedation. Continue antiepileptic therapy. HD per renal. Still having issues with feeds. Will contact to see if he has any food allergies. Prognosis still remains very poor. WIll start some promotility agents as well. 09/21/20: Trach and peg today. Continue with vent weaning. Hopeful we can wean him off the vent once trached. [facility] Prognosis remains very poor for recovery of functional state. 09/20/20: Placed consult to surgery now that COVID is negative. However, patient is morbidly obese and his surgery will likely be a complicated one especially with peg placement. Await surgery eval and recs. HD per renal. Continue daily PSV trials, mental status precludes extubation traditionally but maybe able to wean off vent with stable airway such as trach. [facility] denied transfer and placement requests at this time based on CM notes. Prognosis is very poor, but after speaking with neurology and neurosurgery, patient wishes to continue aggressive measures. 09/19/20: Ordered repeat COVID as surgery will not do trach and peg until negative status. Continue supportive measures. Prognosis is very very poor but family wishes to proceed with nursing home care. 09/18/20: Unable to fit in MRI. Repeat CT showed improvement in edema but no clinical response is seen with this. Will continue Antiepileptic therapy. If wishes to proceed, will need trach and peg. Not sure if he would be candidate for PEG given his size but will ask surgery. Will need repeat COVID test prior to surgery. 09/15/20: Order MRI brain without contrast. Per surgery this will help to add more in regards to prognosis. Continue Valproic Acid and Keppra for seizure therapy. HD going now per renal. Overall prognosis remains guarded to poor. Please reach out to over the weekend to update her as I am not rounding this weekend, ,my partner will be covering. 09/14/20: Will load with valproic acid and then start to wean Diprovan. Spoke with today, very tearful on the phone. Explained to that Neurosurgery would come and eval tonight but not a candidate for the other therapies she asked about since his edema is related to anoxic injury. Very very poor prognosis. 09/13/20: Per current neuro available, the neurologist from yesterday will call today. EEG is nonspecific but given CT of head findings consistent with anoxic encephalopathy, brain injury. As stated in neuro note, overall prognosis is very poor. Will continue to wean down diprovan to see if patient's seizures have been controlled with current Keppra dosing. Will call once she has spoken to neuro to get her thoughts on the next steps. (trach and peg, vs hospice as well as code status). Very very poor prognosis. 09/12/20: Long discussion with this am. Given recent head CT results, prognosis for full functional recovery is very POOR and neurology agrees. They will see in consult today. I have spoken to about AND and she is going to discuss with the family. The neurologist has stated they will reach out to the today. I am going to attempt to wean the ativan off and then start to wean the diprovan as long as no seizure activity is seen. Patient is now bradycardic, likely secondary to neuro state. I hope that he is not about to herniate. Patient is also like in Neurogenic DI given large urine out put volume. Very very poor prognosis. Continue supportive measures. 09/11/20: Will increase Keppra to 1500 BID given patient size. Continue Diprovan drip. Getting EEG today. HD per renal. Needs neurology consult however if patient is in status, needs to be transferred to an institution that can provide continuous EEG monitoring. Overll prognosis is very guarded to poor. Have not spoken to yet today. 09/10/20: Loaded with keppra and will start on Keppra BID. Needs EEG on therapy as well as OFF. If patient is in status, needs transfer to a location with continuous EEG capabilities. FiO2 has been weaned back down and is now at 60%, sats in the high 90's. HD per renal. Coags improving. Overall prognosis is guarded to poor. Spoke with on phone yesterday. Consult neurology tomorrow as not available on the weekend. Suggest checking for antibodies as he may be a candidate for convalsescent plasma. Per the , he was diagnosed with COVID on and spent 6 days inpatient at the [facility]. Remains positive now with multisystem organ failure. Explained to that outcome may not be good but need more time to assess. 09/09/20: EEG ordered on yesterday but not done. If done not read. Continue diprovan for now until EEG can be done or interpreted. State Coags but given hi s oozing from his vascath, will give Vitamin K and FFP. Patient is covid positive so agree with steroids. Not a candidate for remdesivir. Need to check for antibodies, may be a candidate for convalescent plasma. HD per renal. Given improvement in pH will stop bicarb drip. Feed patient. 1. Stop sedation 2. EEG 3. Needs neuro consult. 4. Art line placement 5. Stat repeat of labs, if renal function is truly that bad, will need renal consult. 6. Follow up COVID testing 7. Likely needs echo 8. Will place on bicarb drip. CCT 31 minutes. Subjective Date of service: 10/02/20 Principal diagnosis: Abnormal LFTs, s/p cardiac arrest, acute kidney injury with ATN Interval history: Tolerated T-piece 24 hours stable. Objective Vital Signs - 12hr 10/02/20 10/02/20 10/02/20 01:01 01:15 01:31 Temperature Pulse Rate 76 76 76 Pulse Rate [ From Monitor] Respiratory 38 H 39 H 39 H Rate Blood Pressure 127/48 128/46 121/45 O2 Sat by Pulse 99 99 99 Oximetry 10/02/20 10/02/20 10/02/20 01:45 02:00 02:15 Temperature Pulse Rate 75 74 74 Pulse Rate [ From Monitor] Respiratory 37 H 25 H 37 H Rate Blood Pressure 117/47 126/47 121/52 O2 Sat by Pulse 100 100 100 Oximetry 10/02/20 10/02/20 10/02/20 02:31 02:45 03:00 Temperature Pulse Rate 77 79 79 Pulse Rate [ From Monitor] Respiratory 31 H 39 H 42 H Rate Blood Pressure 124/49 126/48 121/48 O2 Sat by Pulse 95 100 99 Oximetry 10/02/20 10/02/20 10/02/20 03:15 03:30 03:45 Temperature Pulse Rate 77 78 77 Pulse Rate [ From Monitor] Respiratory 39 H 39 H 42 H Rate Blood Pressure 121/48 137/62 129/61 O2 Sat by Pulse 100 100 Oximetry 10/02/20 10/02/20 10/02/20 04:00 04:01 04:15 Temperature 99.0 F Pulse Rate 77 76 84 Pulse Rate [ 85 From Monitor] Respiratory 49 H 38 H 28 H Rate Blood Pressure 123/53 149/76 O2 Sat by Pulse 100 100 99 Oximetry 10/02/20 10/02/20 10/02/20 04:30 04:45 05:00 Temperature Pulse Rate 83 85 85 Pulse Rate [ From Monitor] Respiratory 48 H 53 H 48 H Rate Blood Pressure 149/76 105/52 105/46 O2 Sat by Pulse 98 100 100 Oximetry 10/02/20 10/02/20 10/02/20 05:15 05:30 05:45 Temperature Pulse Rate 85 85 84 Pulse Rate [ From Monitor] Respiratory 45 H 45 H 42 H Rate Blood Pressure 106/47 112/55 107/52 O2 Sat by Pulse 99 98 99 Oximetry 10/02/20 10/02/20 10/02/20 06:00 06:15 06:20 Temperature Pulse Rate 85 88 88 Pulse Rate [ From Monitor] Respiratory 45 H 50 H Rate Blood Pressure 108/52 108/50 108/50 O2 Sat by Pulse 99 93 Oximetry 10/02/20 10/02/20 10/02/20 06:31 06:45 07:00 Temperature Pulse Rate 88 87 89 Pulse Rate [ From Monitor] Respiratory 46 H 43 H 44 H Rate Blood Pressure 112/51 110/59 106/49 O2 Sat by Pulse 96 100 96 Oximetry 10/02/20 10/02/20 10/02/20 07:15 07:23 07:30 Temperature 98.2 F Pulse Rate 90 91 H Pulse Rate [ From Monitor] Respiratory 44 H 45 H Rate Blood Pressure 110/55 103/56 O2 Sat by Pulse 97 97 Oximetry 10/02/20 10/02/20 10/02/20 07:45 08:00 08:15 Temperature Pulse Rate 90 91 H 90 Pulse Rate [ 91 H From Monitor] Respiratory 40 H 35 H 44 H Rate Blood Pressure 105/43 107/51 110/52 O2 Sat by Pulse 97 98 98 Oximetry 10/02/20 10/02/20 10/02/20 08:30 08:45 09:00 Temperature Pulse Rate 91 H 90 91 H Pulse Rate [ From Monitor] Respiratory 45 H 44 H 44 H Rate Blood Pressure 111/50 106/55 99/53 O2 Sat by Pulse 98 99 99 Oximetry 10/02/20 10/02/20 10/02/20 09:15 09:30 09:45 Temperature Pulse Rate 92 H 93 H 92 H Pulse Rate [ From Monitor] Respiratory 46 H 38 H 46 H Rate Blood Pressure 103/51 122/62 114/58 O2 Sat by Pulse 99 96 97 Oximetry 10/02/20 10:00 Temperature Pulse Rate 94 H Pulse Rate [ From Monitor] Respiratory 57 H Rate Blood Pressure 117/60 O2 Sat by Pulse 94 Oximetry Constitutional: comatose, other (morbidly obese t piece sp trach) Eyes: non-icteric ENT: other (tpiece) Neck: supple Effort: normal Ascultation: Bilateral: diminished breath sounds Percussion: Bilateral: not dull Cardiovascular: other (bradycardic) Gastrointestinal: soft Neurologic: other CBC and BMP: 10/01/20 04:33 10/02/20 00:58 ABG, PT/INR, D-dimer: ABG ABG pH 7.433 (7.320-7.450) 10/01/20 04:49 POC ABG pCO2 40.8 mmHg (32.0-48.0) 10/01/20 04:49 ABG pCO2 33.4 mm Hg 09/11/20 05:40 POC ABG pO2 88.4 mmHg (83-108) 10/01/20 04:49 ABG pO2 112.1 mm Hg (80.0-90.0) H 09/11/20 05:40 POC ABG HCO3 26.7 10/01/20 04:49 ABG O2 Saturation 98.4 % (95.0-99.0) 09/11/20 05:40 PT/INR, D-dimer PT 16.1 Sec. (12.2-14.9) H 09/12/20 04:00 INR 1.31 (0.87-1.13) H 09/12/20 04:00 D-Dimer 8315.85 ng/mlDDU (0-234) H 09/07/20 14:00 Abnormal lab findings: Abnormal Labs 09/07/20 09/07/20 09/07/20 13:08 14:00 14:00 WBC 15.7 H RBC Hgb 10.2 L Hct 32.5 L MCHC 31 L RDW 17.5 H Lymph % (Auto) Chambers % (Auto) Lymph # (Auto) Chambers # (Auto) Seg Neutrophils % Seg Neuts % (Manual) 72.0 H Lymphocytes % (Manual) Monocytes % (Manual) 8.0 H Nucleated RBC % Seg Neutrophils # Seg Neutrophils # Man 11.3 H Lymphocytes # (Manual) Monocytes # (Manual) 1.3 H PT INR D-Dimer 8315.85 H ABG pH POC ABG pCO2 POC ABG pO2 ABG pO2 ABG HCO3 ABG Base Excess ABG Hemoglobin ABG Oxyhemoglobin ABG Sodium ABG Potassium ABG Chloride ABG Glucose Carboxyhemoglobin Sodium Potassium Chloride Carbon Dioxide BUN Creatinine Glucose POC Glucose Lactic Acid Calcium Phosphorus Ferritin Total Bilirubin Direct Bilirubin AST ALT Lactate Dehydrogenase Total Creatine Kinase Troponin T Total Protein Albumin Triglycerides Arterial Blood Glucose Arterial Blood Ionized Calcium Urine pH 8.0 H Urine Creatinine Salicylates Acetaminophen Coronavirus (PCR) 09/07/20 09/07/20 09/07/20 14:00 14:00 14:00 WBC RBC Hgb Hct MCHC RDW Lymph % (Auto) Chambers % (Auto) Lymph # (Auto) Chambers # (Auto) Seg Neutrophils % Seg Neuts % (Manual) Lymphocytes % (Manual) Monocytes % (Manual) Nucleated RBC % Seg Neutrophils # Seg Neutrophils # Man Lymphocytes # (Manual) Monocytes # (Manual) PT INR D-Dimer ABG pH POC ABG pCO2 POC ABG pO2 ABG pO2 ABG HCO3 ABG Base Excess ABG Hemoglobin ABG Oxyhemoglobin ABG Sodium ABG Potassium ABG Chloride ABG Glucose Carboxyhemoglobin Sodium Potassium Chloride Carbon Dioxide BUN Creatinine Glucose POC Glucose Lactic Acid 4.30 H* Calcium Phosphorus Ferritin > 2000.0 H Total Bilirubin Direct Bilirubin AST ALT Lactate Dehydrogenase 882 H Total Creatine Kinase 477 H Troponin T 0.076 H Total Protein Albumin Triglycerides Arterial Blood Glucose Arterial Blood Ionized Calcium Urine pH Urine Creatinine Salicylates Acetaminophen Coronavirus (PCR) 09/07/20 09/07/20 09/07/20 14:00 14:00 14:00 WBC RBC Hgb Hct MCHC RDW Lymph % (Auto) Chambers % (Auto) Lymph # (Auto) Chambers # (Auto) Seg Neutrophils % Seg Neuts % (Manual) Lymphocytes % (Manual) Monocytes % (Manual) Nucleated RBC % Seg Neutrophils # Seg Neutrophils # Man Lymphocytes # (Manual) Monocytes # (Manual) PT INR D-Dimer ABG pH POC ABG pCO2 POC ABG pO2 ABG pO2 ABG HCO3 ABG Base Excess ABG Hemoglobin ABG Oxyhemoglobin ABG Sodium ABG Potassium ABG Chloride ABG Glucose Carboxyhemoglobin Sodium Potassium Chloride Carbon Dioxide BUN Creatinine 1.8 H Glucose POC Glucose Lactic Acid Calcium Phosphorus Ferritin Total Bilirubin Direct Bilirubin AST 310 H ALT 339 H Lactate Dehydrogenase Total Creatine Kinase Troponin T Total Protein Albumin 3.6 L Triglycerides Arterial Blood Glucose Arterial Blood Ionized Calcium Urine pH Urine Creatinine Salicylates < 0.3 L Acetaminophen 5.0 L Coronavirus (PCR) 09/07/20 09/08/20 09/08/20 14:26 04:00 04:17 WBC RBC Hgb Hct MCHC RDW Lymph % (Auto) Chambers % (Auto) Lymph # (Auto) Chambers # (Auto) Seg Neutrophils % Seg Neuts % (Manual) Lymphocytes % (Manual) Monocytes % (Manual) Nucleated RBC % Seg Neutrophils # Seg Neutrophils # Man Lymphocytes # (Manual) Monocytes # (Manual) PT INR D-Dimer ABG pH 7.037 L 7.095 L POC ABG pCO2 92.4 H 68.0 H POC ABG pO2 130.8 H 43.5 L ABG pO2 ABG HCO3 ABG Base Excess ABG Hemoglobin 11.3 L 10.6 L ABG Oxyhemoglobin 70.8 L ABG Sodium ABG Potassium 7.0 H ABG Chloride 108.0 H ABG Glucose Carboxyhemoglobin 0.3 L Sodium Potassium 8.4 H* D Chloride Carbon Dioxide 17 L D BUN 38 H Creatinine 3.9 H D Glucose POC Glucose Lactic Acid Calcium 7.7 L D Phosphorus Ferritin Total Bilirubin Direct Bilirubin AST ALT Lactate Dehydrogenase Total Creatine Kinase Troponin T Total Protein Albumin Triglycerides Arterial Blood Glucose Arterial Blood Ionized Calcium 4.5 L Urine pH Urine Creatinine Salicylates Acetaminophen Coronavirus (PCR) 09/08/20 09/08/20 09/08/20 05:00 05:25 12:02 WBC RBC Hgb Hct MCHC RDW Lymph % (Auto) Chambers % (Auto) Lymph # (Auto) Chambers # (Auto) Seg Neutrophils % Seg Neuts % (Manual) Lymphocytes % (Manual) Monocytes % (Manual) Nucleated RBC % Seg Neutrophils # Seg Neutrophils # Man Lymphocytes # (Manual) Monocytes # (Manual) PT INR D-Dimer ABG pH 7.088 L POC ABG pCO2 69.1 H POC ABG pO2 35.2 L ABG pO2 ABG HCO3 ABG Base Excess ABG Hemoglobin 10.9 L ABG Oxyhemoglobin 57.1 L ABG Sodium ABG Potassium 7.0 H ABG Chloride 108.0 H ABG Glucose Carboxyhemoglobin 0.4 L Sodium Potassium 8.1 H* Chloride Carbon Dioxide 17 L BUN 38 H Creatinine 3.7 H Glucose POC Glucose Lactic Acid Calcium 8.0 L Phosphorus 8.00 H Ferritin Total Bilirubin Direct Bilirubin 0.5 H AST 3696 H ALT 3331 H Lactate Dehydrogenase Total Creatine Kinase Troponin T Total Protein Albumin 3.5 L Triglycerides Arterial Blood Glucose Arterial Blood Ionized Calcium 4.4 L Urine pH Urine Creatinine Salicylates Acetaminophen Coronavirus (PCR) 09/08/20 09/08/20 09/08/20 16:31 22:36 Unknown WBC RBC Hgb Hct MCHC RDW Lymph % (Auto) Chambers % (Auto) Lymph # (Auto) Chambers # (Auto) Seg Neutrophils % Seg Neuts % (Manual) Lymphocytes % (Manual) Monocytes % (Manual) Nucleated RBC % Seg Neutrophils # Seg Neutrophils # Man Lymphocytes # (Manual) Monocytes # (Manual) PT INR D-Dimer ABG pH POC ABG pCO2 POC ABG pO2 ABG pO2 ABG HCO3 ABG Base Excess ABG Hemoglobin ABG Oxyhemoglobin ABG Sodium ABG Potassium ABG Chloride ABG Glucose Carboxyhemoglobin Sodium Potassium 5.3 H D Chloride Carbon Dioxide BUN Creatinine Glucose POC Glucose 158 H Lactic Acid Calcium Phosphorus Ferritin Total Bilirubin Direct Bilirubin AST ALT Lactate Dehydrogenase Total Creatine Kinase Troponin T Total Protein Albumin Triglycerides Arterial Blood Glucose Arterial Blood Ionized Calcium Urine pH Urine Creatinine Salicylates Acetaminophen Coronavirus (PCR) Positive A 09/08/20 09/08/20 09/08/20 Unknown Unknown Unknown WBC 18.4 H RBC Hgb 10.1 L Hct 32.0 L MCHC RDW 18.2 H Lymph % (Auto) Chambers % (Auto) Lymph # (Auto) Chambers # (Auto) Seg Neutrophils % Seg Neuts % (Manual) 81.0 H Lymphocytes % (Manual) 2.0 L Monocytes % (Manual) Nucleated RBC % 1.0 H Seg Neutrophils # Seg Neutrophils # Man 14.9 H Lymphocytes # (Manual) 0.4 L Monocytes # (Manual) 1.1 H PT 21.2 H INR 1.83 H D-Dimer ABG pH POC ABG pCO2 POC ABG pO2 ABG pO2 ABG HCO3 ABG Base Excess ABG Hemoglobin ABG Oxyhemoglobin ABG Sodium ABG Potassium ABG Chloride ABG Glucose Carboxyhemoglobin Sodium Potassium Chloride Carbon Dioxide BUN Creatinine Glucose POC Glucose Lactic Acid Calcium Phosphorus Ferritin Total Bilirubin Direct Bilirubin AST ALT Lactate Dehydrogenase Total Creatine Kinase Troponin T Total Protein Albumin Triglycerides Arterial Blood Glucose Arterial Blood Ionized Calcium Urine pH Urine Creatinine 182.4 H Salicylates Acetaminophen Coronavirus (PCR) 09/09/20 09/09/20 09/09/20 03:14 04:20 04:20 WBC 16.3 H RBC 3.12 L Hgb 8.6 L Hct 26.8 L MCHC RDW 18.2 H Lymph % (Auto) 6.3 L Chambers % (Auto) 8.8 H Lymph # (Auto) 1.0 L Chambers # (Auto) 1.4 H Seg Neutrophils % 84.5 H Seg Neuts % (Manual) Lymphocytes % (Manual) Monocytes % (Manual) Nucleated RBC % Seg Neutrophils # 13.7 H Seg Neutrophils # Man Lymphocytes # (Manual) Monocytes # (Manual) PT INR D-Dimer ABG pH POC ABG pCO2 POC ABG pO2 148.5 H ABG pO2 ABG HCO3 ABG Base Excess ABG Hemoglobin 9.4 L ABG Oxyhemoglobin 98.8 H ABG Sodium 134.8 L ABG Potassium 5.0 H ABG Chloride ABG Glucose 222 H Carboxyhemoglobin 0.1 L Sodium Potassium 5.2 H Chloride Carbon Dioxide BUN 47 H Creatinine 4.3 H Glucose 211 H POC Glucose Lactic Acid Calcium 7.4 L Phosphorus Ferritin Total Bilirubin [place] 32835 H ALT 6206 H Lactate Dehydrogenase Total Creatine Kinase Troponin T Total Protein 5.6 L Albumin 3.0 L Triglycerides Arterial Blood Glucose 222 H Arterial Blood Ionized Calcium 3.8 L Urine pH Urine Creatinine Salicylates Acetaminophen Coronavirus (PCR) 09/09/20 09/09/20 09/09/20 10:00 12:23 18:22 WBC RBC Hgb Hct MCHC RDW Lymph % (Auto) Chambers % (Auto) Lymph # (Auto) Chambers # (Auto) Seg Neutrophils % Seg Neuts % (Manual) Lymphocytes % (Manual) Monocytes % (Manual) Nucleated RBC % Seg Neutrophils # Seg Neutrophils # Man Lymphocytes # (Manual) Monocytes # (Manual) PT 21.7 H INR 1.90 H D-Dimer ABG pH POC ABG pCO2 POC ABG pO2 ABG pO2 ABG HCO3 ABG Base Excess ABG Hemoglobin ABG Oxyhemoglobin ABG Sodium ABG Potassium ABG Chloride ABG Glucose Carboxyhemoglobin Sodium Potassium Chloride Carbon Dioxide BUN Creatinine Glucose POC Glucose 216 H 211 H Lactic Acid Calcium Phosphorus Ferritin Total Bilirubin Direct Bilirubin AST ALT Lactate Dehydrogenase Total Creatine Kinase Troponin T Total Protein Albumin Triglycerides Arterial Blood Glucose Arterial Blood Ionized Calcium Urine pH Urine Creatinine Salicylates Acetaminophen Coronavirus (PCR) 09/10/20 09/10/20 09/10/20 04:00 04:05 04:05 WBC 15.0 H RBC 3.06 L Hgb 8.6 L Hct 25.8 L MCHC RDW 18.0 H Lymph % (Auto) Chambers % (Auto) Lymph # (Auto) Chambers # (Auto) Seg Neutrophils % Seg Neuts % (Manual) 86.0 H Lymphocytes % (Manual) 6.0 L Monocytes % (Manual) 8.0 H Nucleated RBC % Seg Neutrophils # Seg Neutrophils # Man 12.9 H Lymphocytes # (Manual) 0.9 L Monocytes # (Manual) 1.2 H PT 18.4 H INR 1.54 H D-Dimer ABG pH POC ABG pCO2 POC ABG pO2 ABG pO2 ABG HCO3 ABG Base Excess ABG Hemoglobin ABG Oxyhemoglobin ABG Sodium ABG Potassium ABG Chloride ABG Glucose Carboxyhemoglobin Sodium 134 L Potassium Chloride 93.7 L Carbon Dioxide BUN 46 H Creatinine 3.6 H Glucose 275 H POC Glucose Lactic Acid Calcium 7.7 L Phosphorus Ferritin Total Bilirubin 1.30 H Direct Bilirubin AST 5899 H ALT 6440 H Lactate Dehydrogenase Total Creatine Kinase Troponin T Total Protein 5.9 L Albumin 3.3 L Triglycerides Arterial Blood Glucose Arterial Blood Ionized Calcium Urine pH Urine Creatinine Salicylates Acetaminophen Coronavirus (PCR) 09/10/20 09/10/20 09/10/20 04:35 12:06 17:42 WBC RBC Hgb Hct MCHC RDW Lymph % (Auto) Chambers % (Auto) Lymph # (Auto) Chambers # (Auto) Seg Neutrophils % Seg Neuts % (Manual) Lymphocytes % (Manual) Monocytes % (Manual) Nucleated RBC % Seg Neutrophils # Seg Neutrophils # Man Lymphocytes # (Manual) Monocytes # (Manual) PT INR D-Dimer ABG pH 7.464 H POC ABG pCO2 POC ABG pO2 ABG pO2 ABG HCO3 ABG Base Excess ABG Hemoglobin 9.9 L ABG Oxyhemoglobin ABG Sodium 131.6 L ABG Potassium ABG Chloride 97.0 L ABG Glucose 281 H Carboxyhemoglobin 0.1 L Sodium Potassium Chloride Carbon Dioxide BUN Creatinine Glucose POC Glucose 298 H 340 H Lactic Acid Calcium Phosphorus Ferritin Total Bilirubin Direct Bilirubin AST ALT Lactate Dehydrogenase Total Creatine Kinase Troponin T Total Protein Albumin Triglycerides Arterial Blood Glucose 281 H Arterial Blood Ionized Calcium 3.9 L Urine pH Urine Creatinine Salicylates Acetaminophen Coronavirus (PCR) 09/10/20 09/11/20 09/11/20 23:07 04:44 05:17 WBC RBC Hgb Hct MCHC RDW Lymph % (Auto) Chambers % (Auto) Lymph # (Auto) Chambers # (Auto) Seg Neutrophils % Seg Neuts % (Manual) Lymphocytes % (Manual) Monocytes % (Manual) Nucleated RBC % Seg Neutrophils # Seg Neutrophils # Man Lymphocytes # (Manual) Monocytes # (Manual) PT 16.9 H INR 1.39 H D-Dimer ABG pH POC ABG pCO2 POC ABG pO2 ABG pO2 ABG HCO3 ABG Base Excess ABG Hemoglobin ABG Oxyhemoglobin ABG Sodium ABG Potassium ABG Chloride ABG Glucose Carboxyhemoglobin Sodium Potassium Chloride Carbon Dioxide BUN Creatinine Glucose POC Glucose 367 H 416 H Lactic Acid Calcium Phosphorus Ferritin Total Bilirubin Direct Bilirubin AST ALT Lactate Dehydrogenase Total Creatine Kinase Troponin T Total Protein Albumin Triglycerides Arterial Blood Glucose Arterial Blood Ionized Calcium Urine pH Urine Creatinine Salicylates Acetaminophen Coronavirus (PCR) 09/11/20 09/11/20 09/11/20 05:40 12:01 17:50 WBC RBC Hgb Hct MCHC RDW Lymph % (Auto) Chambers % (Auto) Lymph # (Auto) Chambers # (Auto) Seg Neutrophils % Seg Neuts % (Manual) Lymphocytes % (Manual) Monocytes % (Manual) Nucleated RBC % Seg Neutrophils # Seg Neutrophils # Man Lymphocytes # (Manual) Monocytes # (Manual) PT INR D-Dimer ABG pH 7.543 H POC ABG pCO2 POC ABG pO2 ABG pO2 112.1 H ABG HCO3 28.1 H ABG Base Excess 5.4 H ABG Hemoglobin 8.4 L ABG Oxyhemoglobin ABG Sodium ABG Potassium ABG Chloride ABG Glucose Carboxyhemoglobin Sodium Potassium Chloride Carbon Dioxide BUN Creatinine Glucose POC Glucose 418 H 404 H Lactic Acid Calcium Phosphorus Ferritin Total Bilirubin Direct Bilirubin AST ALT Lactate Dehydrogenase Total Creatine Kinase Troponin T Total Protein Albumin Triglycerides Arterial Blood Glucose Arterial Blood Ionized Calcium Urine pH Urine Creatinine Salicylates Acetaminophen Coronavirus (PCR) 09/11/20 09/11/20 09/12/20 23:10 23:43 03:15 WBC RBC Hgb Hct MCHC RDW Lymph % (Auto) Chambers % (Auto) Lymph # (Auto) Chambers # (Auto) Seg Neutrophils % Seg Neuts % (Manual) Lymphocytes % (Manual) Monocytes % (Manual) Nucleated RBC % Seg Neutrophils # Seg Neutrophils # Man Lymphocytes # (Manual) Monocytes # (Manual) PT INR D-Dimer ABG pH POC ABG pCO2 POC ABG pO2 ABG pO2 ABG HCO3 ABG Base Excess ABG Hemoglobin ABG Oxyhemoglobin ABG Sodium ABG Potassium ABG Chloride ABG Glucose Carboxyhemoglobin Sodium 135 L Potassium Chloride 92.3 L Carbon Dioxide BUN 62 H Creatinine 3.7 H Glucose 406 H POC Glucose 372 H 359 H Lactic Acid Calcium Phosphorus Ferritin Total Bilirubin Direct Bilirubin AST 687 H ALT 3701 H Lactate Dehydrogenase Total Creatine Kinase Troponin T Total Protein 5.8 L Albumin 3.1 L Triglycerides Arterial Blood Glucose Arterial Blood Ionized Calcium Urine pH Urine Creatinine Salicylates Acetaminophen Coronavirus (PCR) 09/12/20 09/12/20 09/12/20 03:18 04:00 04:00 WBC 13.7 H RBC 3.30 L Hgb 9.3 L Hct 27.6 L MCHC RDW 17.5 H Lymph % (Auto) Chambers % (Auto) Lymph # (Auto) Chambers # (Auto) Seg Neutrophils % Seg Neuts % (Manual) 76.0 H Lymphocytes % (Manual) 11.0 L Monocytes % (Manual) 13.0 H Nucleated RBC % Seg Neutrophils # Seg Neutrophils # Man 10.4 H Lymphocytes # (Manual) Monocytes # (Manual) 1.8 H PT 16.1 H INR 1.31 H D-Dimer ABG pH 7.558 H POC ABG pCO2 POC ABG pO2 74.7 L ABG pO2 ABG HCO3 ABG Base Excess ABG Hemoglobin 9.7 L ABG Oxyhemoglobin ABG Sodium 132.4 L ABG Potassium ABG Chloride 95.0 L ABG Glucose 437 H Carboxyhemoglobin Sodium Potassium Chloride Carbon Dioxide BUN Creatinine Glucose POC Glucose Lactic Acid Calcium Phosphorus Ferritin Total Bilirubin Direct Bilirubin AST ALT Lactate Dehydrogenase Total Creatine Kinase Troponin T Total Protein Albumin Triglycerides Arterial Blood Glucose 437 H Arterial Blood Ionized Calcium 4.3 L Urine pH Urine Creatinine Salicylates Acetaminophen Coronavirus (PCR) 09/12/20 09/12/20 09/12/20 04:21 05:20 06:37 WBC RBC Hgb Hct MCHC RDW Lymph % (Auto) Chambers % (Auto) Lymph # (Auto) Chambers # (Auto) Seg Neutrophils % Seg Neuts % (Manual) Lymphocytes % (Manual) Monocytes % (Manual) Nucleated RBC % Seg Neutrophils # Seg Neutrophils # Man Lymphocytes # (Manual) Monocytes # (Manual) PT INR D-Dimer ABG pH POC ABG pCO2 POC ABG pO2 ABG pO2 ABG HCO3 ABG Base Excess ABG Hemoglobin ABG Oxyhemoglobin ABG Sodium ABG Potassium ABG Chloride ABG Glucose Carboxyhemoglobin Sodium Potassium Chloride Carbon Dioxide BUN Creatinine Glucose POC Glucose 417 H 397 H 370 H Lactic Acid Calcium Phosphorus Ferritin Total Bilirubin Direct Bilirubin AST ALT Lactate Dehydrogenase Total Creatine Kinase Troponin T Total Protein Albumin Triglycerides Arterial Blood Glucose Arterial Blood Ionized Calcium Urine pH Urine Creatinine Salicylates Acetaminophen Coronavirus (PCR) 09/12/20 09/12/20 09/12/20 11:56 17:14 21:52 WBC RBC Hgb Hct MCHC RDW Lymph % (Auto) Chambers % (Auto) Lymph # (Auto) Chambers # (Auto) Seg Neutrophils % Seg Neuts % (Manual) Lymphocytes % (Manual) Monocytes % (Manual) Nucleated RBC % Seg Neutrophils # Seg Neutrophils # Man Lymphocytes # (Manual) Monocytes # (Manual) PT INR D-Dimer ABG pH POC ABG pCO2 POC ABG pO2 ABG pO2 ABG HCO3 ABG Base Excess ABG Hemoglobin ABG Oxyhemoglobin ABG Sodium ABG Potassium ABG Chloride ABG Glucose Carboxyhemoglobin Sodium Potassium Chloride Carbon Dioxide BUN Creatinine Glucose POC Glucose 341 H 325 H 285 H Lactic Acid Calcium Phosphorus Ferritin Total Bilirubin Direct Bilirubin AST ALT Lactate Dehydrogenase Total Creatine Kinase Troponin T Total Protein Albumin Triglycerides Arterial Blood Glucose Arterial Blood Ionized Calcium Urine pH Urine Creatinine Salicylates Acetaminophen Coronavirus (PCR) 09/12/20 09/12/20 09/12/20 23:39 Unknown Unknown WBC RBC Hgb Hct MCHC RDW Lymph % (Auto) Chambers % (Auto) Lymph # (Auto) Chambers # (Auto) Seg Neutrophils % Seg Neuts % (Manual) Lymphocytes % (Manual) Monocytes % (Manual) Nucleated RBC % Seg Neutrophils # Seg Neutrophils # Man Lymphocytes # (Manual) Monocytes # (Manual) PT INR D-Dimer ABG pH POC ABG pCO2 POC ABG pO2 ABG pO2 ABG HCO3 ABG Base Excess ABG Hemoglobin ABG Oxyhemoglobin ABG Sodium ABG Potassium ABG Chloride ABG Glucose Carboxyhemoglobin Sodium 135 L Potassium Chloride 92.2 L Carbon Dioxide BUN 65 H Creatinine 3.5 H Glucose 418 H POC Glucose 338 H Lactic Acid Calcium Phosphorus Ferritin Total Bilirubin Direct Bilirubin AST 553 H ALT 3453 H Lactate Dehydrogenase Total Creatine Kinase Troponin T Total Protein 5.9 L Albumin 3.0 L Triglycerides 220 H Arterial Blood Glucose Arterial Blood Ionized Calcium Urine pH Urine Creatinine Salicylates Acetaminophen Coronavirus (PCR) 09/13/20 09/13/20 09/13/20 04:47 05:24 10:50 WBC RBC Hgb Hct MCHC RDW Lymph % (Auto) Chambers % (Auto) Lymph # (Auto) Chambers # (Auto) Seg Neutrophils % Seg Neuts % (Manual) Lymphocytes % (Manual) Monocytes % (Manual) Nucleated RBC % Seg Neutrophils # Seg Neutrophils # Man Lymphocytes # (Manual) Monocytes # (Manual) PT INR D-Dimer ABG pH 7.571 H POC ABG pCO2 POC ABG pO2 69.0 L ABG pO2 ABG HCO3 ABG Base Excess ABG Hemoglobin 10.1 L ABG Oxyhemoglobin 93.2 L ABG Sodium 134.0 L ABG Potassium ABG Chloride ABG Glucose 365 H Carboxyhemoglobin 0.4 L Sodium Potassium Chloride 96.6 L Carbon Dioxide 32 H BUN 76 H Creatinine 3.1 H Glucose 395 H POC Glucose 329 H Lactic Acid Calcium Phosphorus Ferritin Total Bilirubin Direct Bilirubin AST ALT Lactate Dehydrogenase Total Creatine Kinase Troponin T Total Protein Albumin Triglycerides Arterial Blood Glucose 365 H Arterial Blood Ionized Calcium Urine pH Urine Creatinine Salicylates Acetaminophen Coronavirus (PCR) 09/13/20 09/13/20 09/13/20 11:39 17:48 23:35 WBC RBC Hgb Hct MCHC RDW Lymph % (Auto) Chambers % (Auto) Lymph # (Auto) Chambers # (Auto) Seg Neutrophils % Seg Neuts % (Manual) Lymphocytes % (Manual) Monocytes % (Manual) Nucleated RBC % Seg Neutrophils # Seg Neutrophils # Man Lymphocytes # (Manual) Monocytes # (Manual) PT INR D-Dimer ABG pH POC ABG pCO2 POC ABG pO2 ABG pO2 ABG HCO3 ABG Base Excess ABG Hemoglobin ABG Oxyhemoglobin ABG Sodium ABG Potassium ABG Chloride ABG Glucose Carboxyhemoglobin Sodium Potassium Chloride Carbon Dioxide BUN Creatinine Glucose POC Glucose 344 H 286 H 223 H Lactic Acid Calcium Phosphorus Ferritin Total Bilirubin Direct Bilirubin AST ALT Lactate Dehydrogenase Total Creatine Kinase Troponin T Total Protein Albumin Triglycerides Arterial Blood Glucose Arterial Blood Ionized Calcium Urine pH Urine Creatinine Salicylates Acetaminophen Coronavirus (PCR) 09/14/20 09/14/20 09/14/20 03:54 05:34 10:27 WBC RBC Hgb Hct MCHC RDW Lymph % (Auto) Chambers % (Auto) Lymph # (Auto) Chambers # (Auto) Seg Neutrophils % Seg Neuts % (Manual) Lymphocytes % (Manual) Monocytes % (Manual) Nucleated RBC % Seg Neutrophils # Seg Neutrophils # Man Lymphocytes # (Manual) Monocytes # (Manual) PT INR D-Dimer ABG pH POC ABG pCO2 POC ABG pO2 71.1 L ABG pO2 ABG HCO3 ABG Base Excess ABG Hemoglobin 10.3 L ABG Oxyhemoglobin ABG Sodium 135.2 L ABG Potassium ABG Chloride ABG Glucose 281 H Carboxyhemoglobin Sodium Potassium Chloride 96.6 L Carbon Dioxide BUN 100 H Creatinine 3.9 H Glucose 286 H POC Glucose 252 H Lactic Acid Calcium Phosphorus Ferritin Total Bilirubin Direct Bilirubin AST 145 H ALT 1400 H Lactate Dehydrogenase Total Creatine Kinase Troponin T Total Protein 5.6 L Albumin 2.9 L Triglycerides Arterial Blood Glucose 281 H Arterial Blood Ionized Calcium Urine pH Urine Creatinine Salicylates Acetaminophen Coronavirus (PCR) 09/14/20 09/14/20 09/14/20 11:38 17:52 23:07 WBC RBC Hgb Hct MCHC RDW Lymph % (Auto) Chambers % (Auto) Lymph # (Auto) Chambers # (Auto) Seg Neutrophils % Seg Neuts % (Manual) Lymphocytes % (Manual) Monocytes % (Manual) Nucleated RBC % Seg Neutrophils # Seg Neutrophils # Man Lymphocytes # (Manual) Monocytes # (Manual) PT INR D-Dimer ABG pH POC ABG pCO2 POC ABG pO2 ABG pO2 ABG HCO3 ABG Base Excess ABG Hemoglobin ABG Oxyhemoglobin ABG Sodium ABG Potassium ABG Chloride ABG Glucose Carboxyhemoglobin Sodium Potassium Chloride Carbon Dioxide BUN Creatinine Glucose POC Glucose 247 H 247 H 256 H Lactic Acid Calcium Phosphorus Ferritin Total Bilirubin Direct Bilirubin AST ALT Lactate Dehydrogenase Total Creatine Kinase Troponin T Total Protein Albumin Triglycerides Arterial Blood Glucose Arterial Blood Ionized Calcium Urine pH Urine Creatinine Salicylates Acetaminophen Coronavirus (PCR) 09/15/20 09/15/20 09/15/20 04:54 11:24 17:48 WBC RBC Hgb Hct MCHC RDW Lymph % (Auto) Chambers % (Auto) Lymph # (Auto) Chambers # (Auto) Seg Neutrophils % Seg Neuts % (Manual) Lymphocytes % (Manual) Monocytes % (Manual) Nucleated RBC % Seg Neutrophils # Seg Neutrophils # Man Lymphocytes # (Manual) Monocytes # (Manual) PT INR D-Dimer ABG pH POC ABG pCO2 POC ABG pO2 ABG pO2 ABG HCO3 ABG Base Excess ABG Hemoglobin ABG Oxyhemoglobin ABG Sodium ABG Potassium ABG Chloride ABG Glucose Carboxyhemoglobin Sodium Potassium Chloride Carbon Dioxide BUN Creatinine Glucose POC Glucose 271 H 228 H 254 H Lactic Acid Calcium Phosphorus Ferritin Total Bilirubin Direct Bilirubin AST ALT Lactate Dehydrogenase Total Creatine Kinase Troponin T Total Protein Albumin Triglycerides Arterial Blood Glucose Arterial Blood Ionized Calcium Urine pH Urine Creatinine Salicylates Acetaminophen Coronavirus (PCR) 09/15/20 09/15/20 09/15/20 19:20 19:20 23:13 WBC 27.3 H RBC 3.16 L Hgb 8.8 L Hct 27.0 L MCHC RDW 19.7 H Lymph % (Auto) Chambers % (Auto) Lymph # (Auto) Chambers # (Auto) Seg Neutrophils % Seg Neuts % (Manual) 81.0 H Lymphocytes % (Manual) 9.0 L Monocytes % (Manual) 10.0 H Nucleated RBC % Seg Neutrophils # Seg Neutrophils # Man 22.1 H Lymphocytes # (Manual) Monocytes # (Manual) 2.7 H PT INR D-Dimer ABG pH POC ABG pCO2 POC ABG pO2 ABG pO2 ABG HCO3 ABG Base Excess ABG Hemoglobin ABG Oxyhemoglobin ABG Sodium ABG Potassium ABG Chloride ABG Glucose Carboxyhemoglobin Sodium Potassium Chloride Carbon Dioxide BUN 68 H Creatinine 2.8 H Glucose 288 H POC Glucose 259 H Lactic Acid Calcium Phosphorus Ferritin Total Bilirubin Direct Bilirubin AST ALT Lactate Dehydrogenase Total Creatine Kinase Troponin T Total Protein Albumin Triglycerides Arterial Blood Glucose Arterial Blood Ionized Calcium Urine pH Urine Creatinine Salicylates Acetaminophen Coronavirus (PCR) 09/16/20 09/16/20 09/16/20 05:27 09:40 11:48 WBC RBC Hgb Hct MCHC RDW Lymph % (Auto) Chambers % (Auto) Lymph # (Auto) Chambers # (Auto) Seg Neutrophils % Seg Neuts % (Manual) Lymphocytes % (Manual) Monocytes % (Manual) Nucleated RBC % Seg Neutrophils # Seg Neutrophils # Man Lymphocytes # (Manual) Monocytes # (Manual) PT INR D-Dimer ABG pH POC ABG pCO2 POC ABG pO2 ABG pO2 ABG HCO3 ABG Base Excess ABG Hemoglobin ABG Oxyhemoglobin ABG Sodium ABG Potassium ABG Chloride ABG Glucose Carboxyhemoglobin Sodium Potassium Chloride Carbon Dioxide 31 H BUN 77 H Creatinine 2.9 H Glucose 250 H POC Glucose 275 H 234 H Lactic Acid Calcium Phosphorus Ferritin Total Bilirubin Direct Bilirubin AST ALT Lactate Dehydrogenase Total Creatine Kinase Troponin T Total Protein Albumin Triglycerides Arterial Blood Glucose Arterial Blood Ionized Calcium Urine pH Urine Creatinine Salicylates Acetaminophen Coronavirus (PCR) 09/16/20 09/16/20 09/17/20 17:40 23:23 00:01 WBC RBC Hgb Hct MCHC RDW Lymph % (Auto) Chambers % (Auto) Lymph # (Auto) Chambers # (Auto) Seg Neutrophils % Seg Neuts % (Manual) Lymphocytes % (Manual) Monocytes % (Manual) Nucleated RBC % Seg Neutrophils # Seg Neutrophils # Man Lymphocytes # (Manual) Monocytes # (Manual) PT INR D-Dimer ABG pH POC ABG pCO2 POC ABG pO2 ABG pO2 ABG HCO3 ABG Base Excess ABG Hemoglobin ABG Oxyhemoglobin ABG Sodium ABG Potassium ABG Chloride ABG Glucose Carboxyhemoglobin Sodium Potassium Chloride Carbon Dioxide BUN Creatinine Glucose POC Glucose 172 H 161 H Lactic Acid 2.10 H* Calcium Phosphorus Ferritin Total Bilirubin Direct Bilirubin AST ALT Lactate Dehydrogenase Total Creatine Kinase Troponin T Total Protein Albumin Triglycerides Arterial Blood Glucose Arterial Blood Ionized Calcium Urine pH Urine Creatinine Salicylates Acetaminophen Coronavirus (PCR) 09/17/20 09/17/20 09/17/20 04:00 04:00 05:09 WBC 19.5 H RBC 3.03 L Hgb 8.6 L Hct 26.3 L MCHC RDW 19.4 H Lymph % (Auto) 8.7 L Chambers % (Auto) 13.7 H Lymph # (Auto) Chambers # (Auto) 2.7 H Seg Neutrophils % 76.9 H Seg Neuts % (Manual) Lymphocytes % (Manual) Monocytes % (Manual) Nucleated RBC % Seg Neutrophils # 15.0 H Seg Neutrophils # Man Lymphocytes # (Manual) Monocytes # (Manual) PT INR D-Dimer ABG pH POC ABG pCO2 POC ABG pO2 ABG pO2 ABG HCO3 ABG Base Excess ABG Hemoglobin ABG Oxyhemoglobin ABG Sodium ABG Potassium ABG Chloride ABG Glucose Carboxyhemoglobin Sodium 146 H Potassium 3.1 L Chloride Carbon Dioxide BUN 79 H Creatinine 2.6 H Glucose 122 H POC Glucose 116 H Lactic Acid Calcium Phosphorus Ferritin Total Bilirubin Direct Bilirubin AST 64 H ALT 516 H Lactate Dehydrogenase Total Creatine Kinase Troponin T Total Protein 5.7 L Albumin 2.8 L Triglycerides Arterial Blood Glucose Arterial Blood Ionized Calcium Urine pH Urine Creatinine Salicylates Acetaminophen Coronavirus (PCR) 09/17/20 09/17/20 09/18/20 13:52 17:38 05:16 WBC RBC Hgb Hct MCHC RDW Lymph % (Auto) Chambers % (Auto) Lymph # (Auto) Chambers # (Auto) Seg Neutrophils % Seg Neuts % (Manual) Lymphocytes % (Manual) Monocytes % (Manual) Nucleated RBC % Seg Neutrophils # Seg Neutrophils # Man Lymphocytes # (Manual) Monocytes # (Manual) PT INR D-Dimer ABG pH POC ABG pCO2 POC ABG pO2 ABG pO2 ABG HCO3 ABG Base Excess ABG Hemoglobin ABG Oxyhemoglobin ABG Sodium ABG Potassium ABG Chloride ABG Glucose Carboxyhemoglobin Sodium Potassium Chloride Carbon Dioxide BUN Creatinine Glucose POC Glucose 68 L 126 H Lactic Acid 2.90 H* Calcium Phosphorus Ferritin Total Bilirubin Direct Bilirubin AST ALT Lactate Dehydrogenase Total Creatine Kinase Troponin T Total Protein Albumin Triglycerides Arterial Blood Glucose Arterial Blood Ionized Calcium Urine pH Urine Creatinine Salicylates Acetaminophen Coronavirus (PCR) 09/18/20 09/18/20 09/18/20 05:30 05:30 11:42 WBC 18.2 H RBC 3.18 L Hgb 9.0 L Hct 27.2 L MCHC RDW 18.8 H Lymph % (Auto) Chambers % (Auto) Lymph # (Auto) Chambers # (Auto) Seg Neutrophils % Seg Neuts % (Manual) Lymphocytes % (Manual) Monocytes % (Manual) Nucleated RBC % Seg Neutrophils # Seg Neutrophils # Man Lymphocytes # (Manual) Monocytes # (Manual) PT INR D-Dimer ABG pH POC ABG pCO2 POC ABG pO2 ABG pO2 ABG HCO3 ABG Base Excess ABG Hemoglobin ABG Oxyhemoglobin ABG Sodium ABG Potassium ABG Chloride ABG Glucose Carboxyhemoglobin Sodium Potassium 3.1 L Chloride Carbon Dioxide BUN 73 H Creatinine 2.6 H Glucose 154 H POC Glucose 140 H Lactic Acid Calcium Phosphorus Ferritin Total Bilirubin Direct Bilirubin AST ALT Lactate Dehydrogenase Total Creatine Kinase Troponin T Total Protein Albumin Triglycerides Arterial Blood Glucose Arterial Blood Ionized Calcium Urine pH Urine Creatinine Salicylates Acetaminophen Coronavirus (PCR) 09/18/20 09/18/20 09/19/20 18:15 23:37 05:13 WBC 22.8 H RBC 3.30 L Hgb 9.2 L Hct 28.1 L MCHC RDW 18.2 H Lymph % (Auto) Chambers % (Auto) Lymph # (Auto) Chambers # (Auto) Seg Neutrophils % Seg Neuts % (Manual) 87.0 H Lymphocytes % (Manual) 5.0 L Monocytes % (Manual) Nucleated RBC % Seg Neutrophils # Seg Neutrophils # Man 19.8 H Lymphocytes # (Manual) 1.1 L Monocytes # (Manual) 1.6 H PT INR D-Dimer ABG pH POC ABG pCO2 POC ABG pO2 ABG pO2 ABG HCO3 ABG Base Excess ABG Hemoglobin ABG Oxyhemoglobin ABG Sodium ABG Potassium ABG Chloride ABG Glucose Carboxyhemoglobin Sodium Potassium Chloride Carbon Dioxide BUN Creatinine Glucose POC Glucose 149 H 153 H Lactic Acid Calcium Phosphorus Ferritin Total Bilirubin Direct Bilirubin AST ALT Lactate Dehydrogenase Total Creatine Kinase Troponin T Total Protein Albumin Triglycerides Arterial Blood Glucose Arterial Blood Ionized Calcium Urine pH Urine Creatinine Salicylates Acetaminophen Coronavirus (PCR) 09/19/20 09/19/20 09/19/20 05:13 05:25 11:56 WBC RBC Hgb Hct MCHC RDW Lymph % (Auto) Chambers % (Auto) Lymph # (Auto) Chambers # (Auto) Seg Neutrophils % Seg Neuts % (Manual) Lymphocytes % (Manual) Monocytes % (Manual) Nucleated RBC % Seg Neutrophils # Seg Neutrophils # Man Lymphocytes # (Manual) Monocytes # (Manual) PT INR D-Dimer ABG pH POC ABG pCO2 POC ABG pO2 ABG pO2 ABG HCO3 ABG Base Excess ABG Hemoglobin ABG Oxyhemoglobin ABG Sodium ABG Potassium ABG Chloride ABG Glucose Carboxyhemoglobin Sodium Potassium Chloride Carbon Dioxide BUN 55 H Creatinine 2.3 H Glucose 196 H POC Glucose 168 H 137 H Lactic Acid Calcium Phosphorus Ferritin Total Bilirubin Direct Bilirubin AST ALT Lactate Dehydrogenase Total Creatine Kinase Troponin T Total Protein Albumin Triglycerides Arterial Blood Glucose Arterial Blood Ionized Calcium Urine pH Urine Creatinine Salicylates Acetaminophen Coronavirus (PCR) 09/19/20 09/19/20 09/20/20 17:43 23:43 05:02 WBC RBC Hgb Hct MCHC RDW Lymph % (Auto) Chambers % (Auto) Lymph # (Auto) Chambers # (Auto) Seg Neutrophils % Seg Neuts % (Manual) Lymphocytes % (Manual) Monocytes % (Manual) Nucleated RBC % Seg Neutrophils # Seg Neutrophils # Man Lymphocytes # (Manual) Monocytes # (Manual) PT INR D-Dimer ABG pH POC ABG pCO2 POC ABG pO2 ABG pO2 ABG HCO3 ABG Base Excess ABG Hemoglobin ABG Oxyhemoglobin ABG Sodium ABG Potassium ABG Chloride ABG Glucose Carboxyhemoglobin Sodium Potassium Chloride Carbon Dioxide BUN Creatinine Glucose POC Glucose 114 H 136 H 163 H Lactic Acid Calcium Phosphorus Ferritin Total Bilirubin Direct Bilirubin AST ALT Lactate Dehydrogenase Total Creatine Kinase Troponin T Total Protein Albumin Triglycerides Arterial Blood Glucose Arterial Blood Ionized Calcium Urine pH Urine Creatinine Salicylates Acetaminophen Coronavirus (PCR) 09/20/20 09/20/20 09/20/20 05:36 05:36 11:10 WBC 20.1 H RBC 3.07 L Hgb 8.5 L Hct 26.4 L MCHC RDW 18.6 H Lymph % (Auto) 9.6 L Chambers % (Auto) 9.6 H Lymph # (Auto) Chambers # (Auto) 1.9 H Seg Neutrophils % 79.0 H Seg Neuts % (Manual) Lymphocytes % (Manual) Monocytes % (Manual) Nucleated RBC % Seg Neutrophils # 15.9 H Seg Neutrophils # Man Lymphocytes # (Manual) Monocytes # (Manual) PT INR D-Dimer ABG pH POC ABG pCO2 POC ABG pO2 ABG pO2 ABG HCO3 ABG Base Excess ABG Hemoglobin ABG Oxyhemoglobin ABG Sodium ABG Potassium ABG Chloride ABG Glucose Carboxyhemoglobin Sodium Potassium 3.3 L Chloride Carbon Dioxide BUN 76 H Creatinine 3.6 H D Glucose 213 H POC Glucose 167 H Lactic Acid Calcium Phosphorus Ferritin Total Bilirubin Direct Bilirubin AST ALT Lactate Dehydrogenase Total Creatine Kinase Troponin T Total Protein Albumin Triglycerides Arterial Blood Glucose Arterial Blood Ionized Calcium Urine pH Urine Creatinine Salicylates Acetaminophen Coronavirus (PCR) 09/20/20 09/20/20 09/20/20 14:02 17:24 23:30 WBC RBC Hgb Hct MCHC RDW Lymph % (Auto) Chambers % (Auto) Lymph # (Auto) Chambers # (Auto) Seg Neutrophils % Seg Neuts % (Manual) Lymphocytes % (Manual) Monocytes % (Manual) Nucleated RBC % Seg Neutrophils # Seg Neutrophils # Man Lymphocytes # (Manual) Monocytes # (Manual) PT INR D-Dimer ABG pH POC ABG pCO2 POC ABG pO2 ABG pO2 ABG HCO3 ABG Base Excess ABG Hemoglobin ABG Oxyhemoglobin ABG Sodium ABG Potassium ABG Chloride ABG Glucose Carboxyhemoglobin Sodium Potassium Chloride Carbon Dioxide BUN Creatinine Glucose POC Glucose 164 H 146 H 147 H Lactic Acid Calcium Phosphorus Ferritin Total Bilirubin Direct Bilirubin AST ALT Lactate Dehydrogenase Total Creatine Kinase Troponin T Total Protein Albumin Triglycerides Arterial Blood Glucose Arterial Blood Ionized Calcium Urine pH Urine Creatinine Salicylates Acetaminophen Coronavirus (PCR) 09/21/20 09/21/20 09/21/20 05:00 05:00 05:24 WBC 17.4 H RBC 2.95 L Hgb 8.3 L Hct 25.8 L MCHC RDW 19.3 H Lymph % (Auto) 11.1 L Chambers % (Auto) 11.1 H Lymph # (Auto) Chambers # (Auto) 1.9 H Seg Neutrophils % 75.9 H Seg Neuts % (Manual) Lymphocytes % (Manual) Monocytes % (Manual) Nucleated RBC % Seg Neutrophils # 13.2 H Seg Neutrophils # Man Lymphocytes # (Manual) Monocytes # (Manual) PT INR D-Dimer ABG pH POC ABG pCO2 POC ABG pO2 ABG pO2 ABG HCO3 ABG Base Excess ABG Hemoglobin ABG Oxyhemoglobin ABG Sodium ABG Potassium ABG Chloride ABG Glucose Carboxyhemoglobin Sodium Potassium Chloride Carbon Dioxide BUN 60 H Creatinine 3.5 H Glucose 185 H POC Glucose 139 H Lactic Acid Calcium Phosphorus Ferritin Total Bilirubin Direct Bilirubin AST ALT Lactate Dehydrogenase Total Creatine Kinase Troponin T Total Protein Albumin Triglycerides Arterial Blood Glucose Arterial Blood Ionized Calcium Urine pH Urine Creatinine Salicylates Acetaminophen Coronavirus (PCR) 09/21/20 09/21/20 09/21/20 11:59 17:59 23:32 WBC RBC Hgb Hct MCHC RDW Lymph % (Auto) Chambers % (Auto) Lymph # (Auto) Chambers # (Auto) Seg Neutrophils % Seg Neuts % (Manual) Lymphocytes % (Manual) Monocytes % (Manual) Nucleated RBC % Seg Neutrophils # Seg Neutrophils # Man Lymphocytes # (Manual) Monocytes # (Manual) PT INR D-Dimer ABG pH POC ABG pCO2 POC ABG pO2 ABG pO2 ABG HCO3 ABG Base Excess ABG Hemoglobin ABG Oxyhemoglobin ABG Sodium ABG Potassium ABG Chloride ABG Glucose Carboxyhemoglobin Sodium Potassium Chloride Carbon Dioxide BUN Creatinine Glucose POC Glucose 183 H 141 H 162 H Lactic Acid Calcium Phosphorus Ferritin Total Bilirubin Direct Bilirubin AST ALT Lactate Dehydrogenase Total Creatine Kinase Troponin T Total Protein Albumin Triglycerides Arterial Blood Glucose Arterial Blood Ionized Calcium Urine pH Urine Creatinine Salicylates Acetaminophen Coronavirus (PCR) 09/22/20 09/22/20 09/22/20 05:32 12:07 17:53 WBC RBC Hgb Hct MCHC RDW Lymph % (Auto) Chambers % (Auto) Lymph # (Auto) Chambers # (Auto) Seg Neutrophils % Seg Neuts % (Manual) Lymphocytes % (Manual) Monocytes % (Manual) Nucleated RBC % Seg Neutrophils # Seg Neutrophils # Man Lymphocytes # (Manual) Monocytes # (Manual) PT INR D-Dimer ABG pH POC ABG pCO2 POC ABG pO2 ABG pO2 ABG HCO3 ABG Base Excess ABG Hemoglobin ABG Oxyhemoglobin ABG Sodium ABG Potassium ABG Chloride ABG Glucose Carboxyhemoglobin Sodium Potassium Chloride Carbon Dioxide BUN Creatinine Glucose POC Glucose 172 H 169 H 178 H Lactic Acid Calcium Phosphorus Ferritin Total Bilirubin Direct Bilirubin AST ALT Lactate Dehydrogenase Total Creatine Kinase Troponin T Total Protein Albumin Triglycerides Arterial Blood Glucose Arterial Blood Ionized Calcium Urine pH Urine Creatinine Salicylates Acetaminophen Coronavirus (PCR) 09/22/20 09/23/20 09/23/20 23:34 05:21 06:05 WBC RBC Hgb Hct MCHC RDW Lymph % (Auto) Chambers % (Auto) Lymph # (Auto) Chambers # (Auto) Seg Neutrophils % Seg Neuts % (Manual) Lymphocytes % (Manual) Monocytes % (Manual) Nucleated RBC % Seg Neutrophils # Seg Neutrophils # Man Lymphocytes # (Manual) Monocytes # (Manual) PT INR D-Dimer ABG pH POC ABG pCO2 POC ABG pO2 ABG pO2 ABG HCO3 ABG Base Excess ABG Hemoglobin ABG Oxyhemoglobin ABG Sodium ABG Potassium ABG Chloride ABG Glucose Carboxyhemoglobin Sodium 147 H Potassium Chloride 109.2 H Carbon Dioxide 21 L BUN 54 H Creatinine 4.2 H Glucose 193 H POC Glucose 151 H 168 H Lactic Acid Calcium Phosphorus Ferritin Total Bilirubin Direct Bilirubin AST ALT Lactate Dehydrogenase Total Creatine Kinase Troponin T Total Protein Albumin Triglycerides Arterial Blood Glucose Arterial Blood Ionized Calcium Urine pH Urine Creatinine Salicylates Acetaminophen Coronavirus (PCR) 09/23/20 09/23/20 09/23/20 12:30 17:52 23:16 WBC RBC Hgb Hct MCHC RDW Lymph % (Auto) Chambers % (Auto) Lymph # (Auto) Chambers # (Auto) Seg Neutrophils % Seg Neuts % (Manual) Lymphocytes % (Manual) Monocytes % (Manual) Nucleated RBC % Seg Neutrophils # Seg Neutrophils # Man Lymphocytes # (Manual) Monocytes # (Manual) PT INR D-Dimer ABG pH POC ABG pCO2 POC ABG pO2 ABG pO2 ABG HCO3 ABG Base Excess ABG Hemoglobin ABG Oxyhemoglobin ABG Sodium ABG Potassium ABG Chloride ABG Glucose Carboxyhemoglobin Sodium Potassium Chloride Carbon Dioxide BUN Creatinine Glucose POC Glucose 170 H 164 H 160 H Lactic Acid Calcium Phosphorus Ferritin Total Bilirubin Direct Bilirubin AST ALT Lactate Dehydrogenase Total Creatine Kinase Troponin T Total Protein Albumin Triglycerides Arterial Blood Glucose Arterial Blood Ionized Calcium Urine pH Urine Creatinine Salicylates Acetaminophen Coronavirus (PCR) 09/24/20 09/24/20 09/24/20 05:22 05:44 12:32 WBC RBC Hgb Hct MCHC RDW Lymph % (Auto) Chambers % (Auto) Lymph # (Auto) Chambers # (Auto) Seg Neutrophils % Seg Neuts % (Manual) Lymphocytes % (Manual) Monocytes % (Manual) Nucleated RBC % Seg Neutrophils # Seg Neutrophils # Man Lymphocytes # (Manual) Monocytes # (Manual) PT INR D-Dimer ABG pH POC ABG pCO2 POC ABG pO2 ABG pO2 ABG HCO3 ABG Base Excess ABG Hemoglobin ABG Oxyhemoglobin ABG Sodium ABG Potassium ABG Chloride ABG Glucose Carboxyhemoglobin Sodium 148 H Potassium Chloride 109.2 H Carbon Dioxide BUN 61 H Creatinine 4.9 H Glucose 176 H POC Glucose 150 H 165 H Lactic Acid Calcium Phosphorus Ferritin Total Bilirubin Direct Bilirubin AST ALT Lactate Dehydrogenase Total Creatine Kinase Troponin T Total Protein Albumin Triglycerides Arterial Blood Glucose Arterial Blood Ionized Calcium Urine pH Urine Creatinine Salicylates Acetaminophen Coronavirus (PCR) 09/24/20 09/24/20 09/25/20 17:28 23:18 05:18 WBC RBC Hgb Hct MCHC RDW Lymph % (Auto) Chambers % (Auto) Lymph # (Auto) Chambers # (Auto) Seg Neutrophils % Seg Neuts % (Manual) Lymphocytes % (Manual) Monocytes % (Manual) Nucleated RBC % Seg Neutrophils # Seg Neutrophils # Man Lymphocytes # (Manual) Monocytes # (Manual) PT INR D-Dimer ABG pH POC ABG pCO2 POC ABG pO2 ABG pO2 ABG HCO3 ABG Base Excess ABG Hemoglobin ABG Oxyhemoglobin ABG Sodium ABG Potassium ABG Chloride ABG Glucose Carboxyhemoglobin Sodium 149 H Potassium 3.3 L Chloride 109.6 H Carbon Dioxide BUN 70 H Creatinine 5.6 H Glucose 196 H POC Glucose 153 H 177 H Lactic Acid Calcium Phosphorus Ferritin Total Bilirubin Direct Bilirubin AST 55 H ALT 74 H Lactate Dehydrogenase Total Creatine Kinase Troponin T Total Protein Albumin 2.6 L Triglycerides Arterial Blood Glucose Arterial Blood Ionized Calcium Urine pH Urine Creatinine Salicylates Acetaminophen Coronavirus (PCR) 09/25/20 09/25/20 09/25/20 05:18 11:47 17:04 WBC RBC Hgb Hct MCHC RDW Lymph % (Auto) Chambers % (Auto) Lymph # (Auto) Chambers # (Auto) Seg Neutrophils % Seg Neuts % (Manual) Lymphocytes % (Manual) Monocytes % (Manual) Nucleated RBC % Seg Neutrophils # Seg Neutrophils # Man Lymphocytes # (Manual) Monocytes # (Manual) PT INR D-Dimer ABG pH POC ABG pCO2 POC ABG pO2 ABG pO2 ABG HCO3 ABG Base Excess ABG Hemoglobin ABG Oxyhemoglobin ABG Sodium ABG Potassium ABG Chloride ABG Glucose Carboxyhemoglobin Sodium Potassium Chloride Carbon Dioxide BUN Creatinine Glucose POC Glucose 159 H 169 H 142 H Lactic Acid Calcium Phosphorus Ferritin Total Bilirubin Direct Bilirubin AST ALT Lactate Dehydrogenase Total Creatine Kinase Troponin T Total Protein Albumin Triglycerides Arterial Blood Glucose Arterial Blood Ionized Calcium Urine pH Urine Creatinine Salicylates Acetaminophen Coronavirus (PCR) 09/25/20 09/26/20 09/26/20 23:20 04:00 05:00 WBC RBC 2.93 L Hgb 8.5 L Hct 25.8 L MCHC RDW 18.5 H Lymph % (Auto) Chambers % (Auto) 11.3 H Lymph # (Auto) Chambers # (Auto) 1.1 H Seg Neutrophils % 72.0 H Seg Neuts % (Manual) Lymphocytes % (Manual) Monocytes % (Manual) Nucleated RBC % Seg Neutrophils # Seg Neutrophils # Man Lymphocytes # (Manual) Monocytes # (Manual) PT INR D-Dimer ABG pH POC ABG pCO2 POC ABG pO2 ABG pO2 ABG HCO3 ABG Base Excess ABG Hemoglobin ABG Oxyhemoglobin ABG Sodium ABG Potassium ABG Chloride ABG Glucose Carboxyhemoglobin Sodium Potassium 3.4 L Chloride Carbon Dioxide BUN 49 H Creatinine 4.4 H Glucose 179 H POC Glucose 138 H Lactic Acid Calcium Phosphorus Ferritin Total Bilirubin Direct Bilirubin AST ALT Lactate Dehydrogenase Total Creatine Kinase Troponin T Total Protein Albumin Triglycerides Arterial Blood Glucose Arterial Blood Ionized Calcium Urine pH Urine Creatinine Salicylates Acetaminophen Coronavirus (PCR) 09/26/20 09/26/20 09/26/20 05:18 11:59 17:37 WBC RBC Hgb Hct MCHC RDW Lymph % (Auto) Chambers % (Auto) Lymph # (Auto) Chambers # (Auto) Seg Neutrophils % Seg Neuts % (Manual) Lymphocytes % (Manual) Monocytes % (Manual) Nucleated RBC % Seg Neutrophils # Seg Neutrophils # Man Lymphocytes # (Manual) Monocytes # (Manual) PT INR D-Dimer ABG pH POC ABG pCO2 POC ABG pO2 ABG pO2 ABG HCO3 ABG Base Excess ABG Hemoglobin ABG Oxyhemoglobin ABG Sodium ABG Potassium ABG Chloride ABG Glucose Carboxyhemoglobin Sodium Potassium Chloride Carbon Dioxide BUN Creatinine Glucose POC Glucose 155 H 165 H 132 H Lactic Acid Calcium Phosphorus Ferritin Total Bilirubin Direct Bilirubin AST ALT Lactate Dehydrogenase Total Creatine Kinase Troponin T Total Protein Albumin Triglycerides Arterial Blood Glucose Arterial Blood Ionized Calcium Urine pH Urine Creatinine Salicylates Acetaminophen Coronavirus (PCR) 09/26/20 09/27/20 09/27/20 23:35 04:47 04:47 WBC RBC 3.24 L Hgb 9.3 L Hct 28.6 L MCHC RDW 18.2 H Lymph % (Auto) Chambers % (Auto) 11.6 H Lymph # (Auto) Chambers # (Auto) 1.0 H Seg Neutrophils % Seg Neuts % (Manual) Lymphocytes % (Manual) Monocytes % (Manual) Nucleated RBC % Seg Neutrophils # Seg Neutrophils # Man Lymphocytes # (Manual) Monocytes # (Manual) PT INR D-Dimer ABG pH POC ABG pCO2 POC ABG pO2 ABG pO2 ABG HCO3 ABG Base Excess ABG Hemoglobin ABG Oxyhemoglobin ABG Sodium ABG Potassium ABG Chloride ABG Glucose Carboxyhemoglobin Sodium Potassium Chloride Carbon Dioxide BUN 54 H Creatinine 4.7 H Glucose 218 H POC Glucose 180 H Lactic Acid Calcium Phosphorus Ferritin Total Bilirubin Direct Bilirubin AST ALT Lactate Dehydrogenase Total Creatine Kinase Troponin T Total Protein Albumin Triglycerides Arterial Blood Glucose Arterial Blood Ionized Calcium Urine pH Urine Creatinine Salicylates Acetaminophen Coronavirus (PCR) 09/27/20 09/27/20 09/27/20 05:14 11:49 17:48 WBC RBC Hgb Hct MCHC RDW Lymph % (Auto) Chambers % (Auto) Lymph # (Auto) Chambers # (Auto) Seg Neutrophils % Seg Neuts % (Manual) Lymphocytes % (Manual) Monocytes % (Manual) Nucleated RBC % Seg Neutrophils # Seg Neutrophils # Man Lymphocytes # (Manual) Monocytes # (Manual) PT INR D-Dimer ABG pH POC ABG pCO2 POC ABG pO2 ABG pO2 ABG HCO3 ABG Base Excess ABG Hemoglobin ABG Oxyhemoglobin ABG Sodium ABG Potassium ABG Chloride ABG Glucose Carboxyhemoglobin Sodium Potassium Chloride Carbon Dioxide BUN Creatinine Glucose POC Glucose 197 H 219 H 203 H Lactic Acid Calcium Phosphorus Ferritin Total Bilirubin Direct Bilirubin AST ALT Lactate Dehydrogenase Total Creatine Kinase Troponin T Total Protein Albumin Triglycerides Arterial Blood Glucose Arterial Blood Ionized Calcium Urine pH Urine Creatinine Salicylates Acetaminophen Coronavirus (PCR) 09/27/20 09/28/20 09/28/20 23:26 05:28 07:02 WBC RBC Hgb Hct MCHC RDW Lymph % (Auto) Chambers % (Auto) Lymph # (Auto) Chambers # (Auto) Seg Neutrophils % Seg Neuts % (Manual) Lymphocytes % (Manual) Monocytes % (Manual) Nucleated RBC % Seg Neutrophils # Seg Neutrophils # Man Lymphocytes # (Manual) Monocytes # (Manual) PT INR D-Dimer ABG pH POC ABG pCO2 POC ABG pO2 ABG pO2 ABG HCO3 ABG Base Excess ABG Hemoglobin ABG Oxyhemoglobin ABG Sodium ABG Potassium ABG Chloride ABG Glucose Carboxyhemoglobin Sodium Potassium Chloride Carbon Dioxide BUN 37 H Creatinine 3.8 H Glucose 270 H POC Glucose 243 H 227 H Lactic Acid Calcium Phosphorus Ferritin Total Bilirubin Direct Bilirubin AST ALT Lactate Dehydrogenase Total Creatine Kinase Troponin T Total Protein Albumin Triglycerides Arterial Blood Glucose Arterial Blood Ionized Calcium Urine pH Urine Creatinine Salicylates Acetaminophen Coronavirus (PCR) 09/28/20 09/28/20 09/28/20 07:02 11:35 17:44 WBC RBC 3.26 L Hgb 9.3 L Hct 28.7 L MCHC RDW 18.5 H Lymph % (Auto) Chambers % (Auto) 12.7 H Lymph # (Auto) Chambers # (Auto) 1.1 H Seg Neutrophils % Seg Neuts % (Manual) Lymphocytes % (Manual) Monocytes % (Manual) Nucleated RBC % Seg Neutrophils # Seg Neutrophils # Man Lymphocytes # (Manual) Monocytes # (Manual) PT INR D-Dimer ABG pH POC ABG pCO2 POC ABG pO2 ABG pO2 ABG HCO3 ABG Base Excess ABG Hemoglobin ABG Oxyhemoglobin ABG Sodium ABG Potassium ABG Chloride ABG Glucose Carboxyhemoglobin Sodium Potassium Chloride Carbon Dioxide BUN Creatinine Glucose POC Glucose 230 H 237 H Lactic Acid Calcium Phosphorus Ferritin Total Bilirubin Direct Bilirubin AST ALT Lactate Dehydrogenase Total Creatine Kinase Troponin T Total Protein Albumin Triglycerides Arterial Blood Glucose Arterial Blood Ionized Calcium Urine pH Urine Creatinine Salicylates Acetaminophen Coronavirus (PCR) 09/28/20 09/29/20 09/29/20 23:52 05:11 05:20 WBC RBC Hgb Hct MCHC RDW Lymph % (Auto) Chambers % (Auto) Lymph # (Auto) Chambers # (Auto) Seg Neutrophils % Seg Neuts % (Manual) Lymphocytes % (Manual) Monocytes % (Manual) Nucleated RBC % Seg Neutrophils # Seg Neutrophils # Man Lymphocytes # (Manual) Monocytes # (Manual) PT INR D-Dimer ABG pH POC ABG pCO2 POC ABG pO2 ABG pO2 ABG HCO3 ABG Base Excess ABG Hemoglobin ABG Oxyhemoglobin ABG Sodium ABG Potassium ABG Chloride ABG Glucose Carboxyhemoglobin Sodium Potassium Chloride Carbon Dioxide BUN 47 H Creatinine 4.2 H Glucose 289 H POC Glucose 261 H 254 H Lactic Acid Calcium Phosphorus Ferritin Total Bilirubin Direct Bilirubin AST ALT Lactate Dehydrogenase Total Creatine Kinase Troponin T Total Protein Albumin Triglycerides Arterial Blood Glucose Arterial Blood Ionized Calcium Urine pH Urine Creatinine Salicylates Acetaminophen Coronavirus (PCR) 09/29/20 09/29/20 09/29/20 05:20 11:55 17:13 WBC RBC 3.23 L Hgb 9.0 L Hct 27.7 L MCHC RDW 18.3 H Lymph % (Auto) 13.0 L Chambers % (Auto) 13.8 H Lymph # (Auto) Chambers # (Auto) 1.5 H Seg Neutrophils % 72.3 H Seg Neuts % (Manual) Lymphocytes % (Manual) Monocytes % (Manual) Nucleated RBC % Seg Neutrophils # Seg Neutrophils # Man Lymphocytes # (Manual) Monocytes # (Manual) PT INR D-Dimer ABG pH POC ABG pCO2 POC ABG pO2 ABG pO2 ABG HCO3 ABG Base Excess ABG Hemoglobin ABG Oxyhemoglobin ABG Sodium ABG Potassium ABG Chloride ABG Glucose Carboxyhemoglobin Sodium Potassium Chloride Carbon Dioxide BUN Creatinine Glucose POC Glucose 263 H 279 H Lactic Acid Calcium Phosphorus Ferritin Total Bilirubin Direct Bilirubin AST ALT Lactate Dehydrogenase Total Creatine Kinase Troponin T Total Protein Albumin Triglycerides Arterial Blood Glucose Arterial Blood Ionized Calcium Urine pH Urine Creatinine Salicylates Acetaminophen Coronavirus (PCR) 09/29/20 09/30/20 09/30/20 23:25 05:15 06:57 WBC RBC 3.14 L Hgb 9.0 L Hct 27.4 L MCHC RDW 18.5 H Lymph % (Auto) Chambers % (Auto) Lymph # (Auto) Chambers # (Auto) Seg Neutrophils % Seg Neuts % (Manual) Lymphocytes % (Manual) Monocytes % (Manual) 13.0 H Nucleated RBC % Seg Neutrophils # Seg Neutrophils # Man Lymphocytes # (Manual) Monocytes # (Manual) 1.1 H PT INR D-Dimer ABG pH POC ABG pCO2 POC ABG pO2 ABG pO2 ABG HCO3 ABG Base Excess ABG Hemoglobin ABG Oxyhemoglobin ABG Sodium ABG Potassium ABG Chloride ABG Glucose Carboxyhemoglobin Sodium Potassium Chloride Carbon Dioxide BUN Creatinine Glucose POC Glucose 284 H 283 H Lactic Acid Calcium Phosphorus Ferritin Total Bilirubin Direct Bilirubin AST ALT Lactate Dehydrogenase Total Creatine Kinase Troponin T Total Protein Albumin Triglycerides Arterial Blood Glucose Arterial Blood Ionized Calcium Urine pH Urine Creatinine Salicylates Acetaminophen Coronavirus (PCR) 09/30/20 09/30/20 09/30/20 11:54 17:28 23:34 WBC RBC Hgb Hct MCHC RDW Lymph % (Auto) Chambers % (Auto) Lymph # (Auto) Chambers # (Auto) Seg Neutrophils % Seg Neuts % (Manual) Lymphocytes % (Manual) Monocytes % (Manual) Nucleated RBC % Seg Neutrophils # Seg Neutrophils # Man Lymphocytes # (Manual) Monocytes # (Manual) PT INR D-Dimer ABG pH POC ABG pCO2 POC ABG pO2 ABG pO2 ABG HCO3 ABG Base Excess ABG Hemoglobin ABG Oxyhemoglobin ABG Sodium ABG Potassium ABG Chloride ABG Glucose Carboxyhemoglobin Sodium Potassium Chloride Carbon Dioxide BUN Creatinine Glucose POC Glucose 288 H 262 H 258 H Lactic Acid Calcium Phosphorus Ferritin Total Bilirubin Direct Bilirubin AST ALT Lactate Dehydrogenase Total Creatine Kinase Troponin T Total Protein Albumin Triglycerides Arterial Blood Glucose Arterial Blood Ionized Calcium Urine pH Urine Creatinine Salicylates Acetaminophen Coronavirus (PCR) 10/01/20 10/01/20 10/01/20 04:33 04:49 05:30 WBC RBC 2.87 L Hgb 8.2 L Hct 24.9 L MCHC RDW 18.2 H Lymph % (Auto) Chambers % (Auto) Lymph # (Auto) Chambers # (Auto) 1.2 H Seg Neutrophils % Seg Neuts % (Manual) Lymphocytes % (Manual) Monocytes % (Manual) Nucleated RBC % Seg Neutrophils # Seg Neutrophils # Man Lymphocytes # (Manual) Monocytes # (Manual) PT INR D-Dimer ABG pH POC ABG pCO2 POC ABG pO2 ABG pO2 ABG HCO3 ABG Base Excess ABG Hemoglobin 10.0 L ABG Oxyhemoglobin ABG Sodium ABG Potassium ABG Chloride ABG Glucose 270 H Carboxyhemoglobin Sodium Potassium Chloride Carbon Dioxide BUN Creatinine Glucose POC Glucose 219 H Lactic Acid Calcium Phosphorus Ferritin Total Bilirubin Direct Bilirubin AST ALT Lactate Dehydrogenase Total Creatine Kinase Troponin T Total Protein Albumin Triglycerides Arterial Blood Glucose 270 H Arterial Blood Ionized Calcium Urine pH Urine Creatinine Salicylates Acetaminophen Coronavirus (PCR) 10/01/20 10/01/20 10/01/20 12:10 16:32 23:36 WBC RBC Hgb Hct MCHC RDW Lymph % (Auto) Chambers % (Auto) Lymph # (Auto) Chambers # (Auto) Seg Neutrophils % Seg Neuts % (Manual) Lymphocytes % (Manual) Monocytes % (Manual) Nucleated RBC % Seg Neutrophils # Seg Neutrophils # Man Lymphocytes # (Manual) Monocytes # (Manual) PT INR D-Dimer ABG pH POC ABG pCO2 POC ABG pO2 ABG pO2 ABG HCO3 ABG Base Excess ABG Hemoglobin ABG Oxyhemoglobin ABG Sodium ABG Potassium ABG Chloride ABG Glucose Carboxyhemoglobin Sodium Potassium Chloride Carbon Dioxide BUN Creatinine Glucose POC Glucose 266 H 259 H 262 H Lactic Acid Calcium Phosphorus Ferritin Total Bilirubin Direct Bilirubin AST ALT Lactate Dehydrogenase Total Creatine Kinase Troponin T Total Protein Albumin Triglycerides Arterial Blood Glucose Arterial Blood Ionized Calcium Urine pH Urine Creatinine Salicylates Acetaminophen Coronavirus (PCR) 10/02/20 00:58 WBC RBC Hgb Hct MCHC RDW Lymph % (Auto) Chambers % (Auto) Lymph # (Auto) Chambers # (Auto) Seg Neutrophils % Seg Neuts % (Manual) Lymphocytes % (Manual) Monocytes % (Manual) Nucleated RBC % Seg Neutrophils # Seg Neutrophils # Man Lymphocytes # (Manual) Monocytes # (Manual) PT INR D-Dimer ABG pH POC ABG pCO2 POC ABG pO2 ABG pO2 ABG HCO3 ABG Base Excess ABG Hemoglobin ABG Oxyhemoglobin ABG Sodium ABG Potassium ABG Chloride ABG Glucose Carboxyhemoglobin Sodium Potassium Chloride Carbon Dioxide BUN 58 H Creatinine 5.0 H Glucose 324 H POC Glucose Lactic Acid Calcium Phosphorus Ferritin Total Bilirubin Direct Bilirubin AST ALT Lactate Dehydrogenase Total Creatine Kinase Troponin T Total Protein Albumin Triglycerides Arterial Blood Glucose Arterial Blood Ionized Calcium Urine pH Urine Creatinine Salicylates Acetaminophen Coronavirus (PCR)
[2020-10-03] MEDS: VALPROIC ACID 250 MG/5 ML ORAL LIQD FEEDTUBE SCH ×3 (00:31→22:39)
[2020-10-03] MEDS: levETIRAcetam 500 MG/5 ML ORAL LIQD PO SCH ×3 (00:31→22:37)
[2020-10-03] MEDS: LANSOPRAZOLE 30 MG SOLUTAB FEEDTUBE SCH ×3 (00:31→22:37)
[2020-10-03] MEDS: INSULIN LISPRO 100 UNIT/ML SUB-Q SCH ×4 (01:00→17:02)
[2020-10-03] MEDS: hydrALAZINE 25 MG TAB PO SCH ×3 (06:07→22:37)
--- NOTE | 2020-10-03 09:12 | Progress Note ---
Assessment and Plan Impression: * Nonoliguric RYAN secondary to ATN * Severe hyperkalemia - resolved * COVID 19 PNA * s/p OOH cardiac arrest * Acute hypoxic respiratory failure * Seizure activity * Anemia * Hypernatremia Plan: * Patient is s/p HD yesterday. Continue MWF for now. Will continue to monitor for renal recovery * Strict I/O * Keep MAP > 65 * Dose medications for renal function * Avoid potential nephrotoxins * Prognosis is guarded Subjective Date of service: 10/03/20 Principal diagnosis: Abnormal LFTs, s/p cardiac arrest, acute kidney injury with ATN Interval history: Patient transferred out of ICU. No acute events overnight. Objective - Vital Signs Vital signs: Vital Signs - 12hr 10/02/20 10/02/20 10/02/20 22:00 22:56 23:00 Temperature Pulse Rate 78 Pulse Rate [ 78 From Monitor] Respiratory 42 H Rate Blood Pressure [Left] Blood Pressure [Right] O2 Sat by Pulse 100 100 Oximetry O2 Sat by Pulse Oximetry [ Assessment] 10/02/20 10/03/20 10/03/20 23:57 04:54 05:00 Temperature 97.7 F 99.5 F Pulse Rate 80 80 Pulse Rate [ From Monitor] Respiratory 42 H 40 H Rate Blood Pressure 88/40 [Left] Blood Pressure 134/62 [Right] O2 Sat by Pulse 98 98 Oximetry O2 Sat by Pulse 100 Oximetry [ Assessment] 10/03/20 06:07 Temperature Pulse Rate 80 Pulse Rate [ From Monitor] Respiratory Rate Blood Pressure [Left] Blood Pressure [Right] O2 Sat by Pulse Oximetry O2 Sat by Pulse Oximetry [ Assessment] - General Appearance General appearance: well-developed EENT: ATNC Neck: other (trach) Respiratory: Present: Clear to Ascultation Cardiology: regular, S1S2 Gastrointestinal: no tenderness, no distended Integumentary: warm and dry Neurologic: other (non responsive) Musculoskeletal: other (no edema) - Lab 10/01/20 04:33 10/03/20 12:21 Most recent lab results ABG pH 7.468 (7.320-7.450) H 10/02/20 10:16 ABG pCO2 33.4 mm Hg 09/11/20 05:40 ABG pO2 112.1 mm Hg (80.0-90.0) H 09/11/20 05:40 ABG HCO3 28.1 mmol/L (20.0-26.0) H 09/11/20 05:40 ABG O2 Saturation 98.4 % (95.0-99.0) 09/11/20 05:40 Calcium 10.1 mg/dL (8.4-10.2) 10/02/20 00:58 Phosphorus 8.00 mg/dL (2.5-4.5) H 09/08/20 12:02 Magnesium 1.80 mg/dL (1.7-2.3) 09/08/20 12:02 Urine Creatinine 182.4 mg/dL (0.1-20.0) H 09/08/20 Unknown Urine Sodium 40 mmol/L 09/08/20 Unknown Medications & Allergies - Medications Allergies/Adverse Reactions: Allergies No Known Allergies Allergy (Verified 09/21/20 21:00) Verified with , no known drug allergies. Home Medications: Home Medications Medication Instructions Recorded Confirmed Last Taken Type Albuterol Sulfate 60 mcg IH PRN 09/11/20 09/11/20 Unknown History Cholecalciferol (Vitamin D3) 25 tab PO DAILY 09/11/20 09/11/20 Unknown History Cozaar 25 tab PO DAILY 09/11/20 09/11/20 Unknown History HumaLOG 14 unit SQ AC 09/11/20 09/11/20 Unknown History Hydralazine HCl 50 tab PO TID 09/11/20 09/11/20 Unknown History Isosorbide Dinitrate 30 mg PO DAILY 09/11/20 09/11/20 Unknown History Lantus VIAL 54 units SQ HS 09/11/20 09/11/20 Unknown History Lasix 20 tab PO DAILY 09/11/20 09/11/20 Unknown History Nifedipine 30 tab PO DAILY 09/11/20 09/11/20 Unknown History Active Medications: Generic Name Dose Route Start Last Admin Trade Name Freq PRN Reason Stop Dose Admin Acetaminophen 650 mg 10/02/20 09:00 Acetaminophen 325 Mg/10.15 Ml Oral Liqd Unit Dose PO Q4HR PRN Non Cardiac Pain or Temp>100.5 Lipase/Protease/Amylase 1 each 09/09/20 09:40 Lipase 10,500/Protease 25,000/Amylase 43,750 (Units) Dr Armenta FEEDTUBE PRN PRN For Clogged Feeding Tube Hydralazine HCl 50 mg 09/23/20 14:00 10/03/20 06:07 Hydralazine 25 Mg Tab PO Not Given Q8HR [facility] Sodium Chloride 100 mls @ 999 mls/hr 09/09/20 13:36 Nacl 0.9% IV JAYJAY PRN Hypotension Insulin Glargine 25 units 10/03/20 10:00 Insulin Glargine 100 Units/Ml SUB-Q DAILY [facility] Insulin Human Lispro 0 unit 09/12/20 12:00 10/03/20 06:07 Insulin Lispro 100 Unit/Ml SUB-Q Not Given Q6HR [facility] Protocol Lansoprazole 30 mg 09/11/20 11:00 10/03/20 00:31 Lansoprazole 30 Mg Solutab FEEDTUBE 30 mg BID TAYLOR Administration Levetiracetam 1,500 mg 09/28/20 10:00 10/03/20 00:31 Levetiracetam 500 Mg/5 Ml Oral Liqd PO 1,500 mg BID TAYLOR Administration Multivitamins 5 ml 09/09/20 12:00 10/02/20 09:29 Multivitamins 5 Ml Oral Liquid PO 5 ml QDAY TAYLOR Administration Ondansetron HCl 4 mg 09/07/20 17:55 09/19/20 04:00 Ondansetron 4 Mg/2 Ml Inj IV 4 mg Q8H PRN Administration Nausea And Vomiting Senna/Docusate Sodium 2 tab 09/20/20 11:00 Sennosides/Docusate Sodium 8.6/50 Mg Tab PO BID PRN Laxative Effect Simple Syrup 15 ml 09/09/20 09:40 09/17/20 17:43 Simple Syrup 15 Ml FEEDTUBE 15 ml PRN PRN Administration Hypoglycemia Simple Syrup 30 ml 09/09/20 09:40 Simple Syrup 15 Ml FEEDTUBE PRN PRN Hypoglycemia Sodium Bicarbonate 325 mg 09/09/20 09:40 Sodium Bicarbonate 325 Mg Tab FEEDTUBE PRN PRN For Clogged Feeding Tube Sodium Chloride 10 ml 09/07/20 22:00 10/03/20 00:31 Sodium Chloride 0.9% 10 Ml Flush Syringe IV 10 ml BID TAYLOR Administration Sodium Chloride 10 ml 09/07/20 17:55 Sodium Chloride 0.9% 10 Ml Flush Syringe IV PRN PRN LINE FLUSH Valproic Acid 1,000 mg 09/28/20 10:00 10/03/20 00:31 Valproic Acid 250 Mg/5 Ml Oral Liqd FEEDTUBE 1,000 mg BID TAYLOR Administration
[2020-10-03] MEDS: ACETAMINOPHEN 325 MG/10.15 ML ORAL LIQD UNIT DOSE PO PRN ×2 (09:15→22:38)
[2020-10-03] MEDS: INSULIN GLARGINE 100 UNITS/ML SUB-Q SCH (09:18)
[2020-10-03] MEDS: MULTIVITAMINS 5 ML ORAL LIQUID PO SCH (10:05)
--- NOTE | 2020-10-03 11:37 | Progress Note ---
Assessment and Plan 65 y/o male with out of hospital cardiac arrest now sedated on ativan for possible seizures. 10/03/20: Continue trach care. Stable pulm status. Will see PRN. 10/02/20: Will transfer out to floor. CM working on placement. 09/29/20: Please continue daily T-piece trials as tolerated over the weekend. Goals is to do 24 hours of T-piece. Once done stable for transfer out of the unit. Hold BP meds for now. MOnitor for fever cure or changes clinically other than change in blood pressure. Increased BID lantus to 20. May need more but can reassess tomorrow. My partner is covering this weekend. 09/28/20: T-piece again today. Will place official order to let patient stay on T-piece and to call if changes occur. HD MWF per renal. Poor prognosis for cognitive recovery. 09/27/20: T-piece trial again today. Will attempt to go 24 hours. Still needs HD per renal. This will be a barrier to discharge. CM knows and will discuss with administration. 09/26/20: Will do T-piece today. If tolerates the next 24 hours will move out of ICU. : PSV for the next 24 hours if tolerates. Restart feeds today at 10. Continue reglan. If tomorrow, same issues. Will change feeds, obtain GI consult. Continue antiepileptic therapy. 09/24/20: Continue Daily PSV, maybe ready for 24 hour trial. Antiepleptic therapy. Hold feeds today, suggest GI consult. Will discuss with Dietary on round tomorrow. 09/23/20: Daily PSV trials multiple times a day if needed. Antiepileptic therapy. Resume tube feeds today. 09/22/20: PSV trial today as tolerated and every day from this day forward. NO sedation. Continue antiepileptic therapy. HD per renal. Still having issues with feeds. Will contact to see if he has any food allergies. Prognosis still remains very poor. WIll start some promotility agents as well. 09/21/20: Trach and peg today. Continue with vent weaning. Hopeful we can wean him off the vent once trached. [facility] Prognosis remains very poor for recovery of functional state. 09/20/20: Placed consult to surgery now that COVID is negative. However, patient is morbidly obese and his surgery will likely be a complicated one especially with peg placement. Await surgery eval and recs. HD per renal. Continue daily PSV trials, mental status precludes extubation traditionally but maybe able to wean off vent with stable airway such as trach. [facility] and [facility] requests at this time based on CM notes. Prognosis is very poor, but after speaking with neurology and neurosurgery, patient wishes to continue aggressive measures. 09/19/20: Ordered repeat COVID as surgery will not do trach and peg until negative status. Continue supportive measures. Prognosis is very very poor but family wishes to proceed with adjunct faculty for medical terminology care. 09/18/20: Unable to fit in MRI. Repeat CT showed improvement in edema but no clinical response is seen with this. Will continue Antiepileptic therapy. If wishes to proceed, will need trach and peg. Not sure if he would be candidate for PEG given his size but will ask surgery. Will need repeat COVID test prior to surgery. 09/15/20: Order MRI brain without contrast. Per surgery this will help to add mo re in regards to prognosis. Continue Valproic Acid and Keppra for seizure therapy. HD going now per renal. Overall prognosis remains guarded to poor. Please reach out to over the weekend to update her as I am not rounding this weekend, ,my partner will be covering. 09/14/20: Will load with valproic acid and then start to wean Diprovan. Spoke with today, very tearful on the phone. Explained to that Neurosurgery would come and eval tonight but not a candidate for the other therapies she asked about since his edema is related to anoxic injury. Very very poor prognosis. 09/13/20: Per current neuro available, the neurologist from yesterday will call today. EEG is nonspecific but given CT of head findings consistent with anoxic encephalopathy, brain injury. As stated in neuro note, overall prognosis is very poor. Will continue to wean down diprovan to see if patient's seizures have been controlled with current Keppra dosing. Will call once she has spoken to neuro to get her thoughts on the next steps. (trach and peg, vs hospice as well as code status). Very very poor prognosis. 09/12/20: Long discussion with this am. Given recent head CT results, prognosis for full functional recovery is very POOR and neurology agrees. They will see in consult today. I have spoken to about AND and she is going to discuss with the family. The neurologist has stated they will reach out to the today. I am going to attempt to wean the ativan off and then start to wean the diprovan as long as no seizure activity is seen. Patient is now mahnaz cardic, likely secondary to neuro state. I hope that he is not about to herniate. Patient is also like in Neurogenic DI given large urine out put volume. Very very poor prognosis. Continue supportive measures. 09/11/20: Will increase Keppra to 1500 BID given patient size. Continue Diprovan drip. Getting EEG today. HD per renal. Needs neurology consult however if patient is in status, needs to be transferred to an institution that can provide continuous EEG monitoring. Overll prognosis is very guarded to poor. Have not spoken to yet today. 09/10/20: Loaded with keppra and will start on Keppra BID. Needs EEG on therapy as well as OFF. If patient is in status, needs transfer to a location with continuous EEG capabilities. FiO2 has been weaned back down and is now at 60%, sats in the high 90's. HD per renal. Coags improving. Overall prognosis is guarded to poor. Spoke with on phone yesterday. Consult neurology tomorrow as not available on the weekend. Suggest checking for antibodies as he may be a candidate for convalsescent plasma. Per the , he was diagnosed with COVID on and [facility] Remains positive now with multisystem organ failure. Explained to that outcome may not be good but need more time to assess. 09/09/20: EEG ordered on yesterday but not done. If done not read. Continue diprovan for now until EEG can be done or interpreted. State Coags but given his oozing from his vascath, will give Vitamin K and FFP. Patient is covid positive so agree with steroids. Not a candidate for remdesivir. Need to check for antibodies, may be a candidate for convalescent plasma. HD per renal. Given improvement in pH will stop bicarb drip. Feed patient. 1. Stop sedation 2. EEG 3. Needs neuro consult. 4. Art line placement 5. Stat repeat of labs, if renal function is truly that bad, will need renal consult. 6. Follow up COVID testing 7. Likely needs echo 8. Will place on bicarb drip. CCT 31 minutes. Subjective Date of service: 10/03/20 Principal diagnosis: Abnormal LFTs, s/p cardiac arrest, acute kidney injury with ATN Interval history: No acute events. Successful transfer out of the unit. Sats stable. Objective Vital Signs - 12hr 10/02/20 10/03/20 10/03/20 23:57 04:54 05:00 Temperature 97.7 F 99.5 F Pulse Rate 80 80 Pulse Rate [ Left Dorsalis Pedis] Pulse Rate [ Right Dorsalis Pedis] Respiratory 42 H 40 H Rate Blood Pressure 88/40 [Left] Blood Pressure 134/62 [Right] O2 Sat by Pulse 98 98 Oximetry O2 Sat by Pulse 100 Oximetry [ Assessment] 10/03/20 10/03/20 10/03/20 06:07 10:00 10:25 Temperature Pulse Rate 80 Pulse Rate [ 80 Left Dorsalis Pedis] Pulse Rate [ 80 Right Dorsalis Pedis] Respiratory 26 H Rate Blood Pressure [Left] Blood Pressure [Right] O2 Sat by Pulse 99 98 Oximetry O2 Sat by Pulse Oximetry [ Assessment] Constitutional: comatose, other (morbidly obese t piece sp trach) Eyes: non-icteric ENT: other (tpiece) Neck: supple Effort: normal Ascultation: Bilateral: diminished breath sounds Percussion: Bilateral: not dull Cardiovascular: other (bradycardic) Gastrointestinal: soft Neurologic: other CBC and BMP: 10/01/20 04:33 10/02/20 00:58 ABG, PT/INR, D-dimer: ABG ABG pH 7.468 (7.320-7.450) H 10/02/20 10:16 POC ABG pCO2 37.1 mmHg (32.0-48.0) 10/02/20 10:16 ABG pCO2 33.4 mm Hg 09/11/20 05:40 POC ABG pO2 72.9 mmHg (83-108) L 10/02/20 10:16 ABG pO2 112.1 mm Hg (80.0-90.0) H 09/11/20 05:40 POC ABG HCO3 26.3 10/02/20 10:16 ABG O2 Saturation 98.4 % (95.0-99.0) 09/11/20 05:40 PT/INR, D-dimer PT 16.1 Sec. (12.2-14.9) H 09/12/20 04:00 INR 1.31 (0.87-1.13) H 09/12/20 04:00 D-Dimer 8315.85 ng/mlDDU (0-234) H 09/07/20 14:00 Abnormal lab findings: Abnormal Labs 09/07/20 09/07/20 09/07/20 13:08 14:00 14:00 WBC 15.7 H RBC Hgb 10.2 L Hct 32.5 L MCHC 31 L RDW 17.5 H Lymph % (Auto) Harper % (Auto) Lymph # (Auto) Harper # (Auto) Seg Neutrophils % Seg Neuts % (Manual) 72.0 H Lymphocytes % (Manual) Monocytes % (Manual) 8.0 H Nucleated RBC % Seg Neutrophils # Seg Neutrophils # Man 11.3 H Lymphocytes # (Manual) Monocytes # (Manual) 1.3 H PT INR D-Dimer 8315.85 H ABG pH POC ABG pCO2 POC ABG pO2 ABG pO2 ABG HCO3 ABG Base Excess ABG Hemoglobin ABG Oxyhemoglobin ABG Sodium ABG Potassium ABG Chloride ABG Glucose Carboxyhemoglobin Sodium Potassium Chloride Carbon Dioxide BUN Creatinine Glucose POC Glucose Lactic Acid Calcium Phosphorus Ferritin Total Bilirubin Direct Bilirubin AST ALT Lactate Dehydrogenase Total Creatine Kinase Troponin T Total Protein Albumin Triglycerides Arterial Blood Glucose Arterial Blood Ionized Calcium Urine pH 8.0 H Urine Creatinine Salicylates Acetaminophen Coronavirus (PCR) 09/07/20 09/07/20 09/07/20 14:00 14:00 14:00 WBC RBC Hgb Hct MCHC RDW Lymph % (Auto) Harper % (Auto) Lymph # (Auto) Harper # (Auto) Seg Neutrophils % Seg Neuts % (Manual) Lymphocytes % (Manual) Monocytes % (Manual) Nucleated RBC % Seg Neutrophils # Seg Neutrophils # Man Lymphocytes # (Manual) Monocytes # (Manual) PT INR D-Dimer ABG pH POC ABG pCO2 POC ABG pO2 ABG pO2 ABG HCO3 ABG Base Excess ABG Hemoglobin ABG Oxyhemoglobin ABG Sodium ABG Potassium ABG Chloride ABG Glucose Carboxyhemoglobin Sodium Potassium Chloride Carbon Dioxide BUN Creatinine Glucose POC Glucose Lactic Acid 4.30 H* Calcium Phosphorus Ferritin > 2000.0 H Total Bilirubin Direct Bilirubin AST ALT Lactate Dehydrogenase 882 H Total Creatine Kinase 477 H Troponin T 0.076 H Total Protein Albumin Triglycerides Arterial Blood Glucose Arterial Blood Ionized Calcium Urine pH Urine Creatinine Salicylates Acetaminophen Coronavirus (PCR) 09/07/20 09/07/20 09/07/20 14:00 14:00 14:00 WBC RBC Hgb Hct MCHC RDW Lymph % (Auto) Harper % (Auto) Lymph # (Auto) Harper # (Auto) Seg Neutrophils % Seg Neuts % (Manual) Lymphocytes % (Manual) Monocytes % (Manual) Nucleated RBC % Seg Neutrophils # Seg Neutrophils # Man Lymphocytes # (Manual) Monocytes # (Manual) PT INR D-Dimer ABG pH POC ABG pCO2 POC ABG pO2 ABG pO2 ABG HCO3 ABG Base Excess ABG Hemoglobin ABG Oxyhemoglobin ABG Sodium ABG Potassium ABG Chloride ABG Glucose Carboxyhemoglobin Sodium Potassium Chloride Carbon Dioxide BUN Creatinine 1.8 H Glucose POC Glucose Lactic Acid Calcium Phosphorus Ferritin Total Bilirubin Direct Bilirubin AST 310 H ALT 339 H Lactate Dehydrogenase Total Creatine Kinase Troponin T Total Protein Albumin 3.6 L Triglycerides Arterial Blood Glucose Arterial Blood Ionized Calcium Urine pH Urine Creatinine Salicylates < 0.3 L Acetaminophen 5.0 L Coronavirus (PCR) 09/07/20 09/08/20 09/08/20 14:26 04:00 04:17 WBC RBC Hgb Hct MCHC RDW Lymph % (Auto) Harper % (Auto) Lymph # (Auto) Harper # (Auto) Seg Neutrophils % Seg Neuts % (Manual) Lymphocytes % (Manual) Monocytes % (Manual) Nucleated RBC % Seg Neutrophils # Seg Neutrophils # Man Lymphocytes # (Manual) Monocytes # (Manual) PT INR D-Dimer ABG pH 7.037 L 7.095 L POC ABG pCO2 92.4 H 68.0 H POC ABG pO2 130.8 H 43.5 L ABG pO2 ABG HCO3 ABG Base Excess ABG Hemoglobin 11.3 L 10.6 L ABG Oxyhemoglobin 70.8 L ABG Sodium ABG Potassium 7.0 H ABG Chloride 108.0 H ABG Glucose Carboxyhemoglobin 0.3 L Sodium Potassium 8.4 H* D Chloride Carbon Dioxide 17 L D BUN 38 H Creatinine 3.9 H D Glucose POC Glucose Lactic Acid Calcium 7.7 L D Phosphorus Ferritin Total Bilirubin Direct Bilirubin AST ALT Lactate Dehydrogenase Total Creatine Kinase Troponin T Total Protein Albumin Triglycerides Arterial Blood Glucose Arterial Blood Ionized Calcium 4.5 L Urine pH Urine Creatinine Salicylates Acetaminophen Coronavirus (PCR) 09/08/20 09/08/20 09/08/20 05:00 05:25 12:02 WBC RBC Hgb Hct MCHC RDW Lymph % (Auto) Harper % (Auto) Lymph # (Auto) Harper # (Auto) Seg Neutrophils % Seg Neuts % (Manual) Lymphocytes % (Manual) Monocytes % (Manual) Nucleated RBC % Seg Neutrophils # Seg Neutrophils # Man Lymphocytes # (Manual) Monocytes # (Manual) PT INR D-Dimer ABG pH 7.088 L POC ABG pCO2 69.1 H POC ABG pO2 35.2 L ABG pO2 ABG HCO3 ABG Base Excess ABG Hemoglobin 10.9 L ABG Oxyhemoglobin 57.1 L ABG Sodium ABG Potassium 7.0 H ABG Chloride 108.0 H ABG Glucose Carboxyhemoglobin 0.4 L Sodium Potassium 8.1 H* Chloride Carbon Dioxide 17 L BUN 38 H Creatinine 3.7 H Glucose POC Glucose Lactic Acid Calcium 8.0 L Phosphorus 8.00 H Ferritin Total Bilirubin Direct Bilirubin 0.5 H AST 3696 H ALT 3331 H Lactate Dehydrogenase Total Creatine Kinase Troponin T Total Protein Albumin 3.5 L Triglycerides Arterial Blood Glucose Arterial Blood Ionized Calcium 4.4 L Urine pH Urine Creatinine Salicylates Acetaminophen Coronavirus (PCR) 09/08/20 09/08/20 09/08/20 16:31 22:36 Unknown WBC RBC Hgb Hct MCHC RDW Lymph % (Auto) Harper % (Auto) Lymph # (Auto) Harper # (Auto) Seg Neutrophils % Seg Neuts % (Manual) Lymphocytes % (Manual) Monocytes % (Manual) Nucleated RBC % Seg Neutrophils # Seg Neutrophils # Man Lymphocytes # (Manual) Monocytes # (Manual) PT INR D-Dimer ABG pH POC ABG pCO2 POC ABG pO2 ABG pO2 ABG HCO3 ABG Base Excess ABG Hemoglobin ABG Oxyhemoglobin ABG Sodium ABG Potassium ABG Chloride ABG Glucose Carboxyhemoglobin Sodium Potassium 5.3 H D Chloride Carbon Dioxide BUN Creatinine Glucose POC Glucose 158 H Lactic Acid Calcium Phosphorus Ferritin Total Bilirubin Direct Bilirubin AST ALT Lactate Dehydrogenase Total Creatine Kinase Troponin T Total Protein Albumin Triglycerides Arterial Blood Glucose Arterial Blood Ionized Calcium Urine pH Urine Creatinine Salicylates Acetaminophen Coronavirus (PCR) Positive A 09/08/20 09/08/20 09/08/20 Unknown Unknown Unknown WBC 18.4 H RBC Hgb 10.1 L Hct 32.0 L MCHC RDW 18.2 H Lymph % (Auto) Harper % (Auto) Lymph # (Auto) Harper # (Auto) Seg Neutrophils % Seg Neuts % (Manual) 81.0 H Lymphocytes % (Manual) 2.0 L Monocytes % (Manual) Nucleated RBC % 1.0 H Seg Neutrophils # Seg Neutrophils # Man 14.9 H Lymphocytes # (Manual) 0.4 L Monocytes # (Manual) 1.1 H PT 21.2 H INR 1.83 H D-Dimer ABG pH POC ABG pCO2 POC ABG pO2 ABG pO2 ABG HCO3 ABG Base Excess ABG Hemoglobin ABG Oxyhemoglobin ABG Sodium ABG Potassium ABG Chloride ABG Glucose Carboxyhemoglobin Sodium Potassium Chloride Carbon Dioxide BUN Creatinine Glucose POC Glucose Lactic Acid Calcium Phosphorus Ferritin Total Bilirubin Direct Bilirubin AST ALT Lactate Dehydrogenase Total Creatine Kinase Troponin T Total Protein Albumin Triglycerides Arterial Blood Glucose Arterial Blood Ionized Calcium Urine pH Urine Creatinine 182.4 H Salicylates Acetaminophen Coronavirus (PCR) 09/09/20 09/09/20 09/09/20 03:14 04:20 04:20 WBC 16.3 H RBC 3.12 L Hgb 8.6 L Hct 26.8 L MCHC RDW 18.2 H Lymph % (Auto) 6.3 L Harper % (Auto) 8.8 H Lymph # (Auto) 1.0 L Harper # (Auto) 1.4 H Seg Neutrophils % 84.5 H Seg Neuts % (Manual) Lymphocytes % (Manual) Monocytes % (Manual) Nucleated RBC % Seg Neutrophils # 13.7 H Seg Neutrophils # Man Lymphocytes # (Manual) Monocytes # (Manual) PT INR D-Dimer ABG pH POC ABG pCO2 POC ABG pO2 148.5 H ABG pO2 ABG HCO3 ABG Base Excess ABG Hemoglobin 9.4 L ABG Oxyhemoglobin 98.8 H ABG Sodium 134.8 L ABG Potassium 5.0 H ABG Chloride ABG Glucose 222 H Carboxyhemoglobin 0.1 L Sodium Potassium 5.2 H Chloride Carbon Dioxide BUN 47 H Creatinine 4.3 H Glucose 211 H POC Glucose Lactic Acid Calcium 7.4 L Phosphorus Ferritin Total Bilirubin [place] 52406 H ALT 6206 H Lactate Dehydrogenase Total Creatine Kinase Troponin T Total Protein 5.6 L Albumin 3.0 L Triglycerides Arterial Blood Glucose 222 H Arterial Blood Ionized Calcium 3.8 L Urine pH Urine Creatinine Salicylates Acetaminophen Coronavirus (PCR) 09/09/20 09/09/20 09/09/20 10:00 12:23 18:22 WBC RBC Hgb Hct MCHC RDW Lymph % (Auto) Harper % (Auto) Lymph # (Auto) Harper # (Auto) Seg Neutrophils % Seg Neuts % (Manual) Lymphocytes % (Manual) Monocytes % (Manual) Nucleated RBC % Seg Neutrophils # Seg Neutrophils # Man Lymphocytes # (Manual) Monocytes # (Manual) PT 21.7 H INR 1.90 H D-Dimer ABG pH POC ABG pCO2 POC ABG pO2 ABG pO2 ABG HCO3 ABG Base Excess ABG Hemoglobin ABG Oxyhemoglobin ABG Sodium ABG Potassium ABG Chloride ABG Glucose Carboxyhemoglobin Sodium Potassium Chloride Carbon Dioxide BUN Creatinine Glucose POC Glucose 216 H 211 H Lactic Acid Calcium Phosphorus Ferritin Total Bilirubin Direct Bilirubin AST ALT Lactate Dehydrogenase Total Creatine Kinase Troponin T Total Protein Albumin Triglycerides Arterial Blood Glucose Arterial Blood Ionized Calcium Urine pH Urine Creatinine Salicylates Acetaminophen Coronavirus (PCR) 09/10/20 09/10/20 09/10/20 04:00 04:05 04:05 WBC 15.0 H RBC 3.06 L Hgb 8.6 L Hct 25.8 L MCHC RDW 18.0 H Lymph % (Auto) Harper % (Auto) Lymph # (Auto) Harper # (Auto) Seg Neutrophils % Seg Neuts % (Manual) 86.0 H Lymphocytes % (Manual) 6.0 L Monocytes % (Manual) 8.0 H Nucleated RBC % Seg Neutrophils # Seg Neutrophils # Man 12.9 H Lymphocytes # (Manual) 0.9 L Monocytes # (Manual) 1.2 H PT 18.4 H INR 1.54 H D-Dimer ABG pH POC ABG pCO2 POC ABG pO2 ABG pO2 ABG HCO3 ABG Base Excess ABG Hemoglobin ABG Oxyhemoglobin ABG Sodium ABG Potassium ABG Chloride ABG Glucose Carboxyhemoglobin Sodium 134 L Potassium Chloride 93.7 L Carbon Dioxide BUN 46 H Creatinine 3.6 H Glucose 275 H POC Glucose Lactic Acid Calcium 7.7 L Phosphorus Ferritin Total Bilirubin 1.30 H Direct Bilirubin AST 5899 H ALT 6440 H Lactate Dehydrogenase Total Creatine Kinase Troponin T Total Protein 5.9 L Albumin 3.3 L Triglycerides Arterial Blood Glucose Arterial Blood Ionized Calcium Urine pH Urine Creatinine Salicylates Acetaminophen Coronavirus (PCR) 09/10/20 09/10/20 09/10/20 04:35 12:06 17:42 WBC RBC Hgb Hct MCHC RDW Lymph % (Auto) Harper % (Auto) Lymph # (Auto) Harper # (Auto) Seg Neutrophils % Seg Neuts % (Manual) Lymphocytes % (Manual) Monocytes % (Manual) Nucleated RBC % Seg Neutrophils # Seg Neutrophils # Man Lymphocytes # (Manual) Monocytes # (Manual) PT INR D-Dimer ABG pH 7.464 H POC ABG pCO2 POC ABG pO2 ABG pO2 ABG HCO3 ABG Base Excess ABG Hemoglobin 9.9 L ABG Oxyhemoglobin ABG Sodium 131.6 L ABG Potassium ABG Chloride 97.0 L ABG Glucose 281 H Carboxyhemoglobin 0.1 L Sodium Potassium Chloride Carbon Dioxide BUN Creatinine Glucose POC Glucose 298 H 340 H Lactic Acid Calcium Phosphorus Ferritin Total Bilirubin Direct Bilirubin AST ALT Lactate Dehydrogenase Total Creatine Kinase Troponin T Total Protein Albumin Triglycerides Arterial Blood Glucose 281 H Arterial Blood Ionized Calcium 3.9 L Urine pH Urine Creatinine Salicylates Acetaminophen Coronavirus (PCR) 09/10/20 09/11/20 09/11/20 23:07 04:44 05:17 WBC RBC Hgb Hct MCHC RDW Lymph % (Auto) Harper % (Auto) Lymph # (Auto) Harper # (Auto) Seg Neutrophils % Seg Neuts % (Manual) Lymphocytes % (Manual) Monocytes % (Manual) Nucleated RBC % Seg Neutrophils # Seg Neutrophils # Man Lymphocytes # (Manual) Monocytes # (Manual) PT 16.9 H INR 1.39 H D-Dimer ABG pH POC ABG pCO2 POC ABG pO2 ABG pO2 ABG HCO3 ABG Base Excess ABG Hemoglobin ABG Oxyhemoglobin ABG Sodium ABG Potassium ABG Chloride ABG Glucose Carboxyhemoglobin Sodium Potassium Chloride Carbon Dioxide BUN Creatinine Glucose POC Glucose 367 H 416 H Lactic Acid Calcium Phosphorus Ferritin Total Bilirubin Direct Bilirubin AST ALT Lactate Dehydrogenase Total Creatine Kinase Troponin T Total Protein Albumin Triglycerides Arterial Blood Glucose Arterial Blood Ionized Calcium Urine pH Urine Creatinine Salicylates Acetaminophen Coronavirus (PCR) 09/11/20 09/11/20 09/11/20 05:40 12:01 17:50 WBC RBC Hgb Hct MCHC RDW Lymph % (Auto) Harper % (Auto) Lymph # (Auto) Harper # (Auto) Seg Neutrophils % Seg Neuts % (Manual) Lymphocytes % (Manual) Monocytes % (Manual) Nucleated RBC % Seg Neutrophils # Seg Neutrophils # Man Lymphocytes # (Manual) Monocytes # (Manual) PT INR D-Dimer ABG pH 7.543 H POC ABG pCO2 POC ABG pO2 ABG pO2 112.1 H ABG HCO3 28.1 H ABG Base Excess 5.4 H ABG Hemoglobin 8.4 L ABG Oxyhemoglobin ABG Sodium ABG Potassium ABG Chloride ABG Glucose Carboxyhemoglobin Sodium Potassium Chloride Carbon Dioxide BUN Creatinine Glucose POC Glucose 418 H 404 H Lactic Acid Calcium Phosphorus Ferritin Total Bilirubin Direct Bilirubin AST ALT Lactate Dehydrogenase Total Creatine Kinase Troponin T Total Protein Albumin Triglycerides Arterial Blood Glucose Arterial Blood Ionized Calcium Urine pH Urine Creatinine Salicylates Acetaminophen Coronavirus (PCR) 09/11/20 09/11/20 09/12/20 23:10 23:43 03:15 WBC RBC Hgb Hct MCHC RDW Lymph % (Auto) Harper % (Auto) Lymph # (Auto) Harper # (Auto) Seg Neutrophils % Seg Neuts % (Manual) Lymphocytes % (Manual) Monocytes % (Manual) Nucleated RBC % Seg Neutrophils # Seg Neutrophils # Man Lymphocytes # (Manual) Monocytes # (Manual) PT INR D-Dimer ABG pH POC ABG pCO2 POC ABG pO2 ABG pO2 ABG HCO3 ABG Base Excess ABG Hemoglobin ABG Oxyhemoglobin ABG Sodium ABG Potassium ABG Chloride ABG Glucose Carboxyhemoglobin Sodium 135 L Potassium Chloride 92.3 L Carbon Dioxide BUN 62 H Creatinine 3.7 H Glucose 406 H POC Glucose 372 H 359 H Lactic Acid Calcium Phosphorus Ferritin Total Bilirubin Direct Bilirubin AST 687 H ALT 3701 H Lactate Dehydrogenase Total Creatine Kinase Troponin T Total Protein 5.8 L Albumin 3.1 L Triglycerides Arterial Blood Glucose Arterial Blood Ionized Calcium Urine pH Urine Creatinine Salicylates Acetaminophen Coronavirus (PCR) 09/12/20 09/12/20 09/12/20 03:18 04:00 04:00 WBC 13.7 H RBC 3.30 L Hgb 9.3 L Hct 27.6 L MCHC RDW 17.5 H Lymph % (Auto) Harper % (Auto) Lymph # (Auto) Harper # (Auto) Seg Neutrophils % Seg Neuts % (Manual) 76.0 H Lymphocytes % (Manual) 11.0 L Monocytes % (Manual) 13.0 H Nucleated RBC % Seg Neutrophils # Seg Neutrophils # Man 10.4 H Lymphocytes # (Manual) Monocytes # (Manual) 1.8 H PT 16.1 H INR 1.31 H D-Dimer ABG pH 7.558 H POC ABG pCO2 POC ABG pO2 74.7 L ABG pO2 ABG HCO3 ABG Base Excess ABG Hemoglobin 9.7 L ABG Oxyhemoglobin ABG Sodium 132.4 L ABG Potassium ABG Chloride 95.0 L ABG Glucose 437 H Carboxyhemoglobin Sodium Potassium Chloride Carbon Dioxide BUN Creatinine Glucose POC Glucose Lactic Acid Calcium Phosphorus Ferritin Total Bilirubin Direct Bilirubin AST ALT Lactate Dehydrogenase Total Creatine Kinase Troponin T Total Protein Albumin Triglycerides Arterial Blood Glucose 437 H Arterial Blood Ionized Calcium 4.3 L Urine pH Urine Creatinine Salicylates Acetaminophen Coronavirus (PCR) 09/12/20 09/12/20 09/12/20 04:21 05:20 06:37 WBC RBC Hgb Hct MCHC RDW Lymph % (Auto) Harper % (Auto) Lymph # (Auto) Harper # (Auto) Seg Neutrophils % Seg Neuts % (Manual) Lymphocytes % (Manual) Monocytes % (Manual) Nucleated RBC % Seg Neutrophils # Seg Neutrophils # Man Lymphocytes # (Manual) Monocytes # (Manual) PT INR D-Dimer ABG pH POC ABG pCO2 POC ABG pO2 ABG pO2 ABG HCO3 ABG Base Excess ABG Hemoglobin ABG Oxyhemoglobin ABG Sodium ABG Potassium ABG Chloride ABG Glucose Carboxyhemoglobin Sodium Potassium Chloride Carbon Dioxide BUN Creatinine Glucose POC Glucose 417 H 397 H 370 H Lactic Acid Calcium Phosphorus Ferritin Total Bilirubin Direct Bilirubin AST ALT Lactate Dehydrogenase Total Creatine Kinase Troponin T Total Protein Albumin Triglycerides Arterial Blood Glucose Arterial Blood Ionized Calcium Urine pH Urine Creatinine Salicylates Acetaminophen Coronavirus (PCR) 09/12/20 09/12/20 09/12/20 11:56 17:14 21:52 WBC RBC Hgb Hct MCHC RDW Lymph % (Auto) Harper % (Auto) Lymph # (Auto) Harper # (Auto) Seg Neutrophils % Seg Neuts % (Manual) Lymphocytes % (Manual) Monocytes % (Manual) Nucleated RBC % Seg Neutrophils # Seg Neutrophils # Man Lymphocytes # (Manual) Monocytes # (Manual) PT INR D-Dimer ABG pH POC ABG pCO2 POC ABG pO2 ABG pO2 ABG HCO3 ABG Base Excess ABG Hemoglobin ABG Oxyhemoglobin ABG Sodium ABG Potassium ABG Chloride ABG Glucose Carboxyhemoglobin Sodium Potassium Chloride Carbon Dioxide BUN Creatinine Glucose POC Glucose 341 H 325 H 285 H Lactic Acid Calcium Phosphorus Ferritin Total Bilirubin Direct Bilirubin AST ALT Lactate Dehydrogenase Total Creatine Kinase Troponin T Total Protein Albumin Triglycerides Arterial Blood Glucose Arterial Blood Ionized Calcium Urine pH Urine Creatinine Salicylates Acetaminophen Coronavirus (PCR) 09/12/20 09/12/20 09/12/20 23:39 Unknown Unknown WBC RBC Hgb Hct MCHC RDW Lymph % (Auto) Harper % (Auto) Lymph # (Auto) Harper # (Auto) Seg Neutrophils % Seg Neuts % (Manual) Lymphocytes % (Manual) Monocytes % (Manual) Nucleated RBC % Seg Neutrophils # Seg Neutrophils # Man Lymphocytes # (Manual) Monocytes # (Manual) PT INR D-Dimer ABG pH POC ABG pCO2 POC ABG pO2 ABG pO2 ABG HCO3 ABG Base Excess ABG Hemoglobin ABG Oxyhemoglobin ABG Sodium ABG Potassium ABG Chloride ABG Glucose Carboxyhemoglobin Sodium 135 L Potassium Chloride 92.2 L Carbon Dioxide BUN 65 H Creatinine 3.5 H Glucose 418 H POC Glucose 338 H Lactic Acid Calcium Phosphorus Ferritin Total Bilirubin Direct Bilirubin AST 553 H ALT 3453 H Lactate Dehydrogenase Total Creatine Kinase Troponin T Total Protein 5.9 L Albumin 3.0 L Triglycerides 220 H Arterial Blood Glucose Arterial Blood Ionized Calcium Urine pH Urine Creatinine Salicylates Acetaminophen Coronavirus (PCR) 09/13/20 09/13/20 09/13/20 04:47 05:24 10:50 WBC RBC Hgb Hct MCHC RDW Lymph % (Auto) Harper % (Auto) Lymph # (Auto) Harper # (Auto) Seg Neutrophils % Seg Neuts % (Manual) Lymphocytes % (Manual) Monocytes % (Manual) Nucleated RBC % Seg Neutrophils # Seg Neutrophils # Man Lymphocytes # (Manual) Monocytes # (Manual) PT INR D-Dimer ABG pH 7.571 H POC ABG pCO2 POC ABG pO2 69.0 L ABG pO2 ABG HCO3 ABG Base Excess ABG Hemoglobin 10.1 L ABG Oxyhemoglobin 93.2 L ABG Sodium 134.0 L ABG Potassium ABG Chloride ABG Glucose 365 H Carboxyhemoglobin 0.4 L Sodium Potassium Chloride 96.6 L Carbon Dioxide 32 H BUN 76 H Creatinine 3.1 H Glucose 395 H POC Glucose 329 H Lactic Acid Calcium Phosphorus Ferritin Total Bilirubin Direct Bilirubin AST ALT Lactate Dehydrogenase Total Creatine Kinase Troponin T Total Protein Albumin Triglycerides Arterial Blood Glucose 365 H Arterial Blood Ionized Calcium Urine pH Urine Creatinine Salicylates Acetaminophen Coronavirus (PCR) 09/13/20 09/13/20 09/13/20 11:39 17:48 23:35 WBC RBC Hgb Hct MCHC RDW Lymph % (Auto) Harper % (Auto) Lymph # (Auto) Harper # (Auto) Seg Neutrophils % Seg Neuts % (Manual) Lymphocytes % (Manual) Monocytes % (Manual) Nucleated RBC % Seg Neutrophils # Seg Neutrophils # Man Lymphocytes # (Manual) Monocytes # (Manual) PT INR D-Dimer ABG pH POC ABG pCO2 POC ABG pO2 ABG pO2 ABG HCO3 ABG Base Excess ABG Hemoglobin ABG Oxyhemoglobin ABG Sodium ABG Potassium ABG Chloride ABG Glucose Carboxyhemoglobin Sodium Potassium Chloride Carbon Dioxide BUN Creatinine Glucose POC Glucose 344 H 286 H 223 H Lactic Acid Calcium Phosphorus Ferritin Total Bilirubin Direct Bilirubin AST ALT Lactate Dehydrogenase Total Creatine Kinase Troponin T Total Protein Albumin Triglycerides Arterial Blood Glucose Arterial Blood Ionized Calcium Urine pH Urine Creatinine Salicylates Acetaminophen Coronavirus (PCR) 09/14/20 09/14/20 09/14/20 03:54 05:34 10:27 WBC RBC Hgb Hct MCHC RDW Lymph % (Auto) Harper % (Auto) Lymph # (Auto) Harper # (Auto) Seg Neutrophils % Seg Neuts % (Manual) Lymphocytes % (Manual) Monocytes % (Manual) Nucleated RBC % Seg Neutrophils # Seg Neutrophils # Man Lymphocytes # (Manual) Monocytes # (Manual) PT INR D-Dimer ABG pH POC ABG pCO2 POC ABG pO2 71.1 L ABG pO2 ABG HCO3 ABG Base Excess ABG Hemoglobin 10.3 L ABG Oxyhemoglobin ABG Sodium 135.2 L ABG Potassium ABG Chloride ABG Glucose 281 H Carboxyhemoglobin Sodium Potassium Chloride 96.6 L Carbon Dioxide BUN 100 H Creatinine 3.9 H Glucose 286 H POC Glucose 252 H Lactic Acid Calcium Phosphorus Ferritin Total Bilirubin Direct Bilirubin AST 145 H ALT 1400 H Lactate Dehydrogenase Total Creatine Kinase Troponin T Total Protein 5.6 L Albumin 2.9 L Triglycerides Arterial Blood Glucose 281 H Arterial Blood Ionized Calcium Urine pH Urine Creatinine Salicylates Acetaminophen Coronavirus (PCR) 09/14/20 09/14/20 09/14/20 11:38 17:52 23:07 WBC RBC Hgb Hct MCHC RDW Lymph % (Auto) Harper % (Auto) Lymph # (Auto) Harper # (Auto) Seg Neutrophils % Seg Neuts % (Manual) Lymphocytes % (Manual) Monocytes % (Manual) Nucleated RBC % Seg Neutrophils # Seg Neutrophils # Man Lymphocytes # (Manual) Monocytes # (Manual) PT INR D-Dimer ABG pH POC ABG pCO2 POC ABG pO2 ABG pO2 ABG HCO3 ABG Base Excess ABG Hemoglobin ABG Oxyhemoglobin ABG Sodium ABG Potassium ABG Chloride ABG Glucose Carboxyhemoglobin Sodium Potassium Chloride Carbon Dioxide BUN Creatinine Glucose POC Glucose 247 H 247 H 256 H Lactic Acid Calcium Phosphorus Ferritin Total Bilirubin Direct Bilirubin AST ALT Lactate Dehydrogenase Total Creatine Kinase Troponin T Total Protein Albumin Triglycerides Arterial Blood Glucose Arterial Blood Ionized Calcium Urine pH Urine Creatinine Salicylates Acetaminophen Coronavirus (PCR) 09/15/20 09/15/20 09/15/20 04:54 11:24 17:48 WBC RBC Hgb Hct MCHC RDW Lymph % (Auto) Harper % (Auto) Lymph # (Auto) Harper # (Auto) Seg Neutrophils % Seg Neuts % (Manual) Lymphocytes % (Manual) Monocytes % (Manual) Nucleated RBC % Seg Neutrophils # Seg Neutrophils # Man Lymphocytes # (Manual) Monocytes # (Manual) PT INR D-Dimer ABG pH POC ABG pCO2 POC ABG pO2 ABG pO2 ABG HCO3 ABG Base Excess ABG Hemoglobin ABG Oxyhemoglobin ABG Sodium ABG Potassium ABG Chloride ABG Glucose Carboxyhemoglobin Sodium Potassium Chloride Carbon Dioxide BUN Creatinine Glucose POC Glucose 271 H 228 H 254 H Lactic Acid Calcium Phosphorus Ferritin Total Bilirubin Direct Bilirubin AST ALT Lactate Dehydrogenase Total Creatine Kinase Troponin T Total Protein Albumin Triglycerides Arterial Blood Glucose Arterial Blood Ionized Calcium Urine pH Urine Creatinine Salicylates Acetaminophen Coronavirus (PCR) 09/15/20 09/15/20 09/15/20 19:20 19:20 23:13 WBC 27.3 H RBC 3.16 L Hgb 8.8 L Hct 27.0 L MCHC RDW 19.7 H Lymph % (Auto) Harper % (Auto) Lymph # (Auto) Harper # (Auto) Seg Neutrophils % Seg Neuts % (Manual) 81.0 H Lymphocytes % (Manual) 9.0 L Monocytes % (Manual) 10.0 H Nucleated RBC % Seg Neutrophils # Seg Neutrophils # Man 22.1 H Lymphocytes # (Manual) Monocytes # (Manual) 2.7 H PT INR D-Dimer ABG pH POC ABG pCO2 POC ABG pO2 ABG pO2 ABG HCO3 ABG Base Excess ABG Hemoglobin ABG Oxyhemoglobin ABG Sodium ABG Potassium ABG Chloride ABG Glucose Carboxyhemoglobin Sodium Potassium Chloride Carbon Dioxide BUN 68 H Creatinine 2.8 H Glucose 288 H POC Glucose 259 H Lactic Acid Calcium Phosphorus Ferritin Total Bilirubin Direct Bilirubin AST ALT Lactate Dehydrogenase Total Creatine Kinase Troponin T Total Protein Albumin Triglycerides Arterial Blood Glucose Arterial Blood Ionized Calcium Urine pH Urine Creatinine Salicylates Acetaminophen Coronavirus (PCR) 09/16/20 09/16/20 09/16/20 05:27 09:40 11:48 WBC RBC Hgb Hct MCHC RDW Lymph % (Auto) Harper % (Auto) Lymph # (Auto) Harper # (Auto) Seg Neutrophils % Seg Neuts % (Manual) Lymphocytes % (Manual) Monocytes % (Manual) Nucleated RBC % Seg Neutrophils # Seg Neutrophils # Man Lymphocytes # (Manual) Monocytes # (Manual) PT INR D-Dimer ABG pH POC ABG pCO2 POC ABG pO2 ABG pO2 ABG HCO3 ABG Base Excess ABG Hemoglobin ABG Oxyhemoglobin ABG Sodium ABG Potassium ABG Chloride ABG Glucose Carboxyhemoglobin Sodium Potassium Chloride Carbon Dioxide 31 H BUN 77 H Creatinine 2.9 H Glucose 250 H POC Glucose 275 H 234 H Lactic Acid Calcium Phosphorus Ferritin Total Bilirubin Direct Bilirubin AST ALT Lactate Dehydrogenase Total Creatine Kinase Troponin T Total Protein Albumin Triglycerides Arterial Blood Glucose Arterial Blood Ionized Calcium Urine pH Urine Creatinine Salicylates Acetaminophen Coronavirus (PCR) 09/16/20 09/16/20 09/17/20 17:40 23:23 00:01 WBC RBC Hgb Hct MCHC RDW Lymph % (Auto) Harper % (Auto) Lymph # (Auto) Harper # (Auto) Seg Neutrophils % Seg Neuts % (Manual) Lymphocytes % (Manual) Monocytes % (Manual) Nucleated RBC % Seg Neutrophils # Seg Neutrophils # Man Lymphocytes # (Manual) Monocytes # (Manual) PT INR D-Dimer ABG pH POC ABG pCO2 POC ABG pO2 ABG pO2 ABG HCO3 ABG Base Excess ABG Hemoglobin ABG Oxyhemoglobin ABG Sodium ABG Potassium ABG Chloride ABG Glucose Carboxyhemoglobin Sodium Potassium Chloride Carbon Dioxide BUN Creatinine Glucose POC Glucose 172 H 161 H Lactic Acid 2.10 H* Calcium Phosphorus Ferritin Total Bilirubin Direct Bilirubin AST ALT Lactate Dehydrogenase Total Creatine Kinase Troponin T Total Protein Albumin Triglycerides Arterial Blood Glucose Arterial Blood Ionized Calcium Urine pH Urine Creatinine Salicylates Acetaminophen Coronavirus (PCR) 09/17/20 09/17/20 09/17/20 04:00 04:00 05:09 WBC 19.5 H RBC 3.03 L Hgb 8.6 L Hct 26.3 L MCHC RDW 19.4 H Lymph % (Auto) 8.7 L Harper % (Auto) 13.7 H Lymph # (Auto) Harper # (Auto) 2.7 H Seg Neutrophils % 76.9 H Seg Neuts % (Manual) Lymphocytes % (Manual) Monocytes % (Manual) Nucleated RBC % Seg Neutrophils # 15.0 H Seg Neutrophils # Man Lymphocytes # (Manual) Monocytes # (Manual) PT INR D-Dimer ABG pH POC ABG pCO2 POC ABG pO2 ABG pO2 ABG HCO3 ABG Base Excess ABG Hemoglobin ABG Oxyhemoglobin ABG Sodium ABG Potassium ABG Chloride ABG Glucose Carboxyhemoglobin Sodium 146 H Potassium 3.1 L Chloride Carbon Dioxide BUN 79 H Creatinine 2.6 H Glucose 122 H POC Glucose 116 H Lactic Acid Calcium Phosphorus Ferritin Total Bilirubin Direct Bilirubin AST 64 H ALT 516 H Lactate Dehydrogenase Total Creatine Kinase Troponin T Total Protein 5.7 L Albumin 2.8 L Triglycerides Arterial Blood Glucose Arterial Blood Ionized Calcium Urine pH Urine Creatinine Salicylates Acetaminophen Coronavirus (PCR) 09/17/20 09/17/20 09/18/20 13:52 17:38 05:16 WBC RBC Hgb Hct MCHC RDW Lymph % (Auto) Harper % (Auto) Lymph # (Auto) Harper # (Auto) Seg Neutrophils % Seg Neuts % (Manual) Lymphocytes % (Manual) Monocytes % (Manual) Nucleated RBC % Seg Neutrophils # Seg Neutrophils # Man Lymphocytes # (Manual) Monocytes # (Manual) PT INR D-Dimer ABG pH POC ABG pCO2 POC ABG pO2 ABG pO2 ABG HCO3 ABG Base Excess ABG Hemoglobin ABG Oxyhemoglobin ABG Sodium ABG Potassium ABG Chloride ABG Glucose Carboxyhemoglobin Sodium Potassium Chloride Carbon Dioxide BUN Creatinine Glucose POC Glucose 68 L 126 H Lactic Acid 2.90 H* Calcium Phosphorus Ferritin Total Bilirubin Direct Bilirubin AST ALT Lactate Dehydrogenase Total Creatine Kinase Troponin T Total Protein Albumin Triglycerides Arterial Blood Glucose Arterial Blood Ionized Calcium Urine pH Urine Creatinine Salicylates Acetaminophen Coronavirus (PCR) 09/18/20 09/18/20 09/18/20 05:30 05:30 11:42 WBC 18.2 H RBC 3.18 L Hgb 9.0 L Hct 27.2 L MCHC RDW 18.8 H Lymph % (Auto) Harper % (Auto) Lymph # (Auto) Harper # (Auto) Seg Neutrophils % Seg Neuts % (Manual) Lymphocytes % (Manual) Monocytes % (Manual) Nucleated RBC % Seg Neutrophils # Seg Neutrophils # Man Lymphocytes # (Manual) Monocytes # (Manual) PT INR D-Dimer ABG pH POC ABG pCO2 POC ABG pO2 ABG pO2 ABG HCO3 ABG Base Excess ABG Hemoglobin ABG Oxyhemoglobin ABG Sodium ABG Potassium ABG Chloride ABG Glucose Carboxyhemoglobin Sodium Potassium 3.1 L Chloride Carbon Dioxide BUN 73 H Creatinine 2.6 H Glucose 154 H POC Glucose 140 H Lactic Acid Calcium Phosphorus Ferritin Total Bilirubin Direct Bilirubin AST ALT Lactate Dehydrogenase Total Creatine Kinase Troponin T Total Protein Albumin Triglycerides Arterial Blood Glucose Arterial Blood Ionized Calcium Urine pH Urine Creatinine Salicylates Acetaminophen Coronavirus (PCR) 09/18/20 09/18/20 09/19/20 18:15 23:37 05:13 WBC 22.8 H RBC 3.30 L Hgb 9.2 L Hct 28.1 L MCHC RDW 18.2 H Lymph % (Auto) Harper % (Auto) Lymph # (Auto) Harper # (Auto) Seg Neutrophils % Seg Neuts % (Manual) 87.0 H Lymphocytes % (Manual) 5.0 L Monocytes % (Manual) Nucleated RBC % Seg Neutrophils # Seg Neutrophils # Man 19.8 H Lymphocytes # (Manual) 1.1 L Monocytes # (Manual) 1.6 H PT INR D-Dimer ABG pH POC ABG pCO2 POC ABG pO2 ABG pO2 ABG HCO3 ABG Base Excess ABG Hemoglobin ABG Oxyhemoglobin ABG Sodium ABG Potassium ABG Chloride ABG Glucose Carboxyhemoglobin Sodium Potassium Chloride Carbon Dioxide BUN Creatinine Glucose POC Glucose 149 H 153 H Lactic Acid Calcium Phosphorus Ferritin Total Bilirubin Direct Bilirubin AST ALT Lactate Dehydrogenase Total Creatine Kinase Troponin T Total Protein Albumin Triglycerides Arterial Blood Glucose Arterial Blood Ionized Calcium Urine pH Urine Creatinine Salicylates Acetaminophen Coronavirus (PCR) 09/19/20 09/19/20 09/19/20 05:13 05:25 11:56 WBC RBC Hgb Hct MCHC RDW Lymph % (Auto) Harper % (Auto) Lymph # (Auto) Harper # (Auto) Seg Neutrophils % Seg Neuts % (Manual) Lymphocytes % (Manual) Monocytes % (Manual) Nucleated RBC % Seg Neutrophils # Seg Neutrophils # Man Lymphocytes # (Manual) Monocytes # (Manual) PT INR D-Dimer ABG pH POC ABG pCO2 POC ABG pO2 ABG pO2 ABG HCO3 ABG Base Excess ABG Hemoglobin ABG Oxyhemoglobin ABG Sodium ABG Potassium ABG Chloride ABG Glucose Carboxyhemoglobin Sodium Potassium Chloride Carbon Dioxide BUN 55 H Creatinine 2.3 H Glucose 196 H POC Glucose 168 H 137 H Lactic Acid Calcium Phosphorus Ferritin Total Bilirubin Direct Bilirubin AST ALT Lactate Dehydrogenase Total Creatine Kinase Troponin T Total Protein Albumin Triglycerides Arterial Blood Glucose Arterial Blood Ionized Calcium Urine pH Urine Creatinine Salicylates Acetaminophen Coronavirus (PCR) 09/19/20 09/19/20 09/20/20 17:43 23:43 05:02 WBC RBC Hgb Hct MCHC RDW Lymph % (Auto) Harper % (Auto) Lymph # (Auto) Harper # (Auto) Seg Neutrophils % Seg Neuts % (Manual) Lymphocytes % (Manual) Monocytes % (Manual) Nucleated RBC % Seg Neutrophils # Seg Neutrophils # Man Lymphocytes # (Manual) Monocytes # (Manual) PT INR D-Dimer ABG pH POC ABG pCO2 POC ABG pO2 ABG pO2 ABG HCO3 ABG Base Excess ABG Hemoglobin ABG Oxyhemoglobin ABG Sodium ABG Potassium ABG Chloride ABG Glucose Carboxyhemoglobin Sodium Potassium Chloride Carbon Dioxide BUN Creatinine Glucose POC Glucose 114 H 136 H 163 H Lactic Acid Calcium Phosphorus Ferritin Total Bilirubin Direct Bilirubin AST ALT Lactate Dehydrogenase Total Creatine Kinase Troponin T Total Protein Albumin Triglycerides Arterial Blood Glucose Arterial Blood Ionized Calcium Urine pH Urine Creatinine Salicylates Acetaminophen Coronavirus (PCR) 09/20/20 09/20/20 09/20/20 05:36 05:36 11:10 WBC 20.1 H RBC 3.07 L Hgb 8.5 L Hct 26.4 L MCHC RDW 18.6 H Lymph % (Auto) 9.6 L Harper % (Auto) 9.6 H Lymph # (Auto) Harper # (Auto) 1.9 H Seg Neutrophils % 79.0 H Seg Neuts % (Manual) Lymphocytes % (Manual) Monocytes % (Manual) Nucleated RBC % Seg Neutrophils # 15.9 H Seg Neutrophils # Man Lymphocytes # (Manual) Monocytes # (Manual) PT INR D-Dimer ABG pH POC ABG pCO2 POC ABG pO2 ABG pO2 ABG HCO3 ABG Base Excess ABG Hemoglobin ABG Oxyhemoglobin ABG Sodium ABG Potassium ABG Chloride ABG Glucose Carboxyhemoglobin Sodium Potassium 3.3 L Chloride Carbon Dioxide BUN 76 H Creatinine 3.6 H D Glucose 213 H POC Glucose 167 H Lactic Acid Calcium Phosphorus Ferritin Total Bilirubin Direct Bilirubin AST ALT Lactate Dehydrogenase Total Creatine Kinase Troponin T Total Protein Albumin Triglycerides Arterial Blood Glucose Arterial Blood Ionized Calcium Urine pH Urine Creatinine Salicylates Acetaminophen Coronavirus (PCR) 09/20/20 09/20/20 09/20/20 14:02 17:24 23:30 WBC RBC Hgb Hct MCHC RDW Lymph % (Auto) Harper % (Auto) Lymph # (Auto) Harper # (Auto) Seg Neutrophils % Seg Neuts % (Manual) Lymphocytes % (Manual) Monocytes % (Manual) Nucleated RBC % Seg Neutrophils # Seg Neutrophils # Man Lymphocytes # (Manual) Monocytes # (Manual) PT INR D-Dimer ABG pH POC ABG pCO2 POC ABG pO2 ABG pO2 ABG HCO3 ABG Base Excess ABG Hemoglobin ABG Oxyhemoglobin ABG Sodium ABG Potassium ABG Chloride ABG Glucose Carboxyhemoglobin Sodium Potassium Chloride Carbon Dioxide BUN Creatinine Glucose POC Glucose 164 H 146 H 147 H Lactic Acid Calcium Phosphorus Ferritin Total Bilirubin Direct Bilirubin AST ALT Lactate Dehydrogenase Total Creatine Kinase Troponin T Total Protein Albumin Triglycerides Arterial Blood Glucose Arterial Blood Ionized Calcium Urine pH Urine Creatinine Salicylates Acetaminophen Coronavirus (PCR) 09/21/20 09/21/20 09/21/20 05:00 05:00 05:24 WBC 17.4 H RBC 2.95 L Hgb 8.3 L Hct 25.8 L MCHC RDW 19.3 H Lymph % (Auto) 11.1 L Harper % (Auto) 11.1 H Lymph # (Auto) Harper # (Auto) 1.9 H Seg Neutrophils % 75.9 H Seg Neuts % (Manual) Lymphocytes % (Manual) Monocytes % (Manual) Nucleated RBC % Seg Neutrophils # 13.2 H Seg Neutrophils # Man Lymphocytes # (Manual) Monocytes # (Manual) PT INR D-Dimer ABG pH POC ABG pCO2 POC ABG pO2 ABG pO2 ABG HCO3 ABG Base Excess ABG Hemoglobin ABG Oxyhemoglobin ABG Sodium ABG Potassium ABG Chloride ABG Glucose Carboxyhemoglobin Sodium Potassium Chloride Carbon Dioxide BUN 60 H Creatinine 3.5 H Glucose 185 H POC Glucose 139 H Lactic Acid Calcium Phosphorus Ferritin Total Bilirubin Direct Bilirubin AST ALT Lactate Dehydrogenase Total Creatine Kinase Troponin T Total Protein Albumin Triglycerides Arterial Blood Glucose Arterial Blood Ionized Calcium Urine pH Urine Creatinine Salicylates Acetaminophen Coronavirus (PCR) 09/21/20 09/21/20 09/21/20 11:59 17:59 23:32 WBC RBC Hgb Hct MCHC RDW Lymph % (Auto) Harper % (Auto) Lymph # (Auto) Harper # (Auto) Seg Neutrophils % Seg Neuts % (Manual) Lymphocytes % (Manual) Monocytes % (Manual) Nucleated RBC % Seg Neutrophils # Seg Neutrophils # Man Lymphocytes # (Manual) Monocytes # (Manual) PT INR D-Dimer ABG pH POC ABG pCO2 POC ABG pO2 ABG pO2 ABG HCO3 ABG Base Excess ABG Hemoglobin ABG Oxyhemoglobin ABG Sodium ABG Potassium ABG Chloride ABG Glucose Carboxyhemoglobin Sodium Potassium Chloride Carbon Dioxide BUN Creatinine Glucose POC Glucose 183 H 141 H 162 H Lactic Acid Calcium Phosphorus Ferritin Total Bilirubin Direct Bilirubin AST ALT Lactate Dehydrogenase Total Creatine Kinase Troponin T Total Protein Albumin Triglycerides Arterial Blood Glucose Arterial Blood Ionized Calcium Urine pH Urine Creatinine Salicylates Acetaminophen Coronavirus (PCR) 09/22/20 09/22/20 09/22/20 05:32 12:07 17:53 WBC RBC Hgb Hct MCHC RDW Lymph % (Auto) Harper % (Auto) Lymph # (Auto) Harper # (Auto) Seg Neutrophils % Seg Neuts % (Manual) Lymphocytes % (Manual) Monocytes % (Manual) Nucleated RBC % Seg Neutrophils # Seg Neutrophils # Man Lymphocytes # (Manual) Monocytes # (Manual) PT INR D-Dimer ABG pH POC ABG pCO2 POC ABG pO2 ABG pO2 ABG HCO3 ABG Base Excess ABG Hemoglobin ABG Oxyhemoglobin ABG Sodium ABG Potassium ABG Chloride ABG Glucose Carboxyhemoglobin Sodium Potassium Chloride Carbon Dioxide BUN Creatinine Glucose POC Glucose 172 H 169 H 178 H Lactic Acid Calcium Phosphorus Ferritin Total Bilirubin Direct Bilirubin AST ALT Lactate Dehydrogenase Total Creatine Kinase Troponin T Total Protein Albumin Triglycerides Arterial Blood Glucose Arterial Blood Ionized Calcium Urine pH Urine Creatinine Salicylates Acetaminophen Coronavirus (PCR) 09/22/20 09/23/20 09/23/20 23:34 05:21 06:05 WBC RBC Hgb Hct MCHC RDW Lymph % (Auto) Harper % (Auto) Lymph # (Auto) Harper # (Auto) Seg Neutrophils % Seg Neuts % (Manual) Lymphocytes % (Manual) Monocytes % (Manual) Nucleated RBC % Seg Neutrophils # Seg Neutrophils # Man Lymphocytes # (Manual) Monocytes # (Manual) PT INR D-Dimer ABG pH POC ABG pCO2 POC ABG pO2 ABG pO2 ABG HCO3 ABG Base Excess ABG Hemoglobin ABG Oxyhemoglobin ABG Sodium ABG Potassium ABG Chloride ABG Glucose Carboxyhemoglobin Sodium 147 H Potassium Chloride 109.2 H Carbon Dioxide 21 L BUN 54 H Creatinine 4.2 H Glucose 193 H POC Glucose 151 H 168 H Lactic Acid Calcium Phosphorus Ferritin Total Bilirubin Direct Bilirubin AST ALT Lactate Dehydrogenase Total Creatine Kinase Troponin T Total Protein Albumin Triglycerides Arterial Blood Glucose Arterial Blood Ionized Calcium Urine pH Urine Creatinine Salicylates Acetaminophen Coronavirus (PCR) 09/23/20 09/23/20 09/23/20 12:30 17:52 23:16 WBC RBC Hgb Hct MCHC RDW Lymph % (Auto) Harper % (Auto) Lymph # (Auto) Harper # (Auto) Seg Neutrophils % Seg Neuts % (Manual) Lymphocytes % (Manual) Monocytes % (Manual) Nucleated RBC % Seg Neutrophils # Seg Neutrophils # Man Lymphocytes # (Manual) Monocytes # (Manual) PT INR D-Dimer ABG pH POC ABG pCO2 POC ABG pO2 ABG pO2 ABG HCO3 ABG Base Excess ABG Hemoglobin ABG Oxyhemoglobin ABG Sodium ABG Potassium ABG Chloride ABG Glucose Carboxyhemoglobin Sodium Potassium Chloride Carbon Dioxide BUN Creatinine Glucose POC Glucose 170 H 164 H 160 H Lactic Acid Calcium Phosphorus Ferritin Total Bilirubin Direct Bilirubin AST ALT Lactate Dehydrogenase Total Creatine Kinase Troponin T Total Protein Albumin Triglycerides Arterial Blood Glucose Arterial Blood Ionized Calcium Urine pH Urine Creatinine Salicylates Acetaminophen Coronavirus (PCR) 09/24/20 09/24/20 09/24/20 05:22 05:44 12:32 WBC RBC Hgb Hct MCHC RDW Lymph % (Auto) Harper % (Auto) Lymph # (Auto) Harper # (Auto) Seg Neutrophils % Seg Neuts % (Manual) Lymphocytes % (Manual) Monocytes % (Manual) Nucleated RBC % Seg Neutrophils # Seg Neutrophils # Man Lymphocytes # (Manual) Monocytes # (Manual) PT INR D-Dimer ABG pH POC ABG pCO2 POC ABG pO2 ABG pO2 ABG HCO3 ABG Base Excess ABG Hemoglobin ABG Oxyhemoglobin ABG Sodium ABG Potassium ABG Chloride ABG Glucose Carboxyhemoglobin Sodium 148 H Potassium Chloride 109.2 H Carbon Dioxide BUN 61 H Creatinine 4.9 H Glucose 176 H POC Glucose 150 H 165 H Lactic Acid Calcium Phosphorus Ferritin Total Bilirubin Direct Bilirubin AST ALT Lactate Dehydrogenase Total Creatine Kinase Troponin T Total Protein Albumin Triglycerides Arterial Blood Glucose Arterial Blood Ionized Calcium Urine pH Urine Creatinine Salicylates Acetaminophen Coronavirus (PCR) 09/24/20 09/24/20 09/25/20 17:28 23:18 05:18 WBC RBC Hgb Hct MCHC RDW Lymph % (Auto) Harper % (Auto) Lymph # (Auto) Harper # (Auto) Seg Neutrophils % Seg Neuts % (Manual) Lymphocytes % (Manual) Monocytes % (Manual) Nucleated RBC % Seg Neutrophils # Seg Neutrophils # Man Lymphocytes # (Manual) Monocytes # (Manual) PT INR D-Dimer ABG pH POC ABG pCO2 POC ABG pO2 ABG pO2 ABG HCO3 ABG Base Excess ABG Hemoglobin ABG Oxyhemoglobin ABG Sodium ABG Potassium ABG Chloride ABG Glucose Carboxyhemoglobin Sodium 149 H Potassium 3.3 L Chloride 109.6 H Carbon Dioxide BUN 70 H Creatinine 5.6 H Glucose 196 H POC Glucose 153 H 177 H Lactic Acid Calcium Phosphorus Ferritin Total Bilirubin Direct Bilirubin AST 55 H ALT 74 H Lactate Dehydrogenase Total Creatine Kinase Troponin T Total Protein Albumin 2.6 L Triglycerides Arterial Blood Glucose Arterial Blood Ionized Calcium Urine pH Urine Creatinine Salicylates Acetaminophen Coronavirus (PCR) 09/25/20 09/25/20 09/25/20 05:18 11:47 17:04 WBC RBC Hgb Hct MCHC RDW Lymph % (Auto) Harper % (Auto) Lymph # (Auto) Harper # (Auto) Seg Neutrophils % Seg Neuts % (Manual) Lymphocytes % (Manual) Monocytes % (Manual) Nucleated RBC % Seg Neutrophils # Seg Neutrophils # Man Lymphocytes # (Manual) Monocytes # (Manual) PT INR D-Dimer ABG pH POC ABG pCO2 POC ABG pO2 ABG pO2 ABG HCO3 ABG Base Excess ABG Hemoglobin ABG Oxyhemoglobin ABG Sodium ABG Potassium ABG Chloride ABG Glucose Carboxyhemoglobin Sodium Potassium Chloride Carbon Dioxide BUN Creatinine Glucose POC Glucose 159 H 169 H 142 H Lactic Acid Calcium Phosphorus Ferritin Total Bilirubin Direct Bilirubin AST ALT Lactate Dehydrogenase Total Creatine Kinase Troponin T Total Protein Albumin Triglycerides Arterial Blood Glucose Arterial Blood Ionized Calcium Urine pH Urine Creatinine Salicylates Acetaminophen Coronavirus (PCR) 09/25/20 09/26/20 09/26/20 23:20 04:00 05:00 WBC RBC 2.93 L Hgb 8.5 L Hct 25.8 L MCHC RDW 18.5 H Lymph % (Auto) Harper % (Auto) 11.3 H Lymph # (Auto) Harper # (Auto) 1.1 H Seg Neutrophils % 72.0 H Seg Neuts % (Manual) Lymphocytes % (Manual) Monocytes % (Manual) Nucleated RBC % Seg Neutrophils # Seg Neutrophils # Man Lymphocytes # (Manual) Monocytes # (Manual) PT INR D-Dimer ABG pH POC ABG pCO2 POC ABG pO2 ABG pO2 ABG HCO3 ABG Base Excess ABG Hemoglobin ABG Oxyhemoglobin ABG Sodium ABG Potassium ABG Chloride ABG Glucose Carboxyhemoglobin Sodium Potassium 3.4 L Chloride Carbon Dioxide BUN 49 H Creatinine 4.4 H Glucose 179 H POC Glucose 138 H Lactic Acid Calcium Phosphorus Ferritin Total Bilirubin Direct Bilirubin AST ALT Lactate Dehydrogenase Total Creatine Kinase Troponin T Total Protein Albumin Triglycerides Arterial Blood Glucose Arterial Blood Ionized Calcium Urine pH Urine Creatinine Salicylates Acetaminophen Coronavirus (PCR) 09/26/20 09/26/20 09/26/20 05:18 11:59 17:37 WBC RBC Hgb Hct MCHC RDW Lymph % (Auto) Harper % (Auto) Lymph # (Auto) Harper # (Auto) Seg Neutrophils % Seg Neuts % (Manual) Lymphocytes % (Manual) Monocytes % (Manual) Nucleated RBC % Seg Neutrophils # Seg Neutrophils # Man Lymphocytes # (Manual) Monocytes # (Manual) PT INR D-Dimer ABG pH POC ABG pCO2 POC ABG pO2 ABG pO2 ABG HCO3 ABG Base Excess ABG Hemoglobin ABG Oxyhemoglobin ABG Sodium ABG Potassium ABG Chloride ABG Glucose Carboxyhemoglobin Sodium Potassium Chloride Carbon Dioxide BUN Creatinine Glucose POC Glucose 155 H 165 H 132 H Lactic Acid Calcium Phosphorus Ferritin Total Bilirubin Direct Bilirubin AST ALT Lactate Dehydrogenase Total Creatine Kinase Troponin T Total Protein Albumin Triglycerides Arterial Blood Glucose Arterial Blood Ionized Calcium Urine pH Urine Creatinine Salicylates Acetaminophen Coronavirus (PCR) 09/26/20 09/27/20 09/27/20 23:35 04:47 04:47 WBC RBC 3.24 L Hgb 9.3 L Hct 28.6 L MCHC RDW 18.2 H Lymph % (Auto) Harper % (Auto) 11.6 H Lymph # (Auto) Harper # (Auto) 1.0 H Seg Neutrophils % Seg Neuts % (Manual) Lymphocytes % (Manual) Monocytes % (Manual) Nucleated RBC % Seg Neutrophils # Seg Neutrophils # Man Lymphocytes # (Manual) Monocytes # (Manual) PT INR D-Dimer ABG pH POC ABG pCO2 POC ABG pO2 ABG pO2 ABG HCO3 ABG Base Excess ABG Hemoglobin ABG Oxyhemoglobin ABG Sodium ABG Potassium ABG Chloride ABG Glucose Carboxyhemoglobin Sodium Potassium Chloride Carbon Dioxide BUN 54 H Creatinine 4.7 H Glucose 218 H POC Glucose 180 H Lactic Acid Calcium Phosphorus Ferritin Total Bilirubin Direct Bilirubin AST ALT Lactate Dehydrogenase Total Creatine Kinase Troponin T Total Protein Albumin Triglycerides Arterial Blood Glucose Arterial Blood Ionized Calcium Urine pH Urine Creatinine Salicylates Acetaminophen Coronavirus (PCR) 09/27/20 09/27/20 09/27/20 05:14 11:49 17:48 WBC RBC Hgb Hct MCHC RDW Lymph % (Auto) Harper % (Auto) Lymph # (Auto) Harper # (Auto) Seg Neutrophils % Seg Neuts % (Manual) Lymphocytes % (Manual) Monocytes % (Manual) Nucleated RBC % Seg Neutrophils # Seg Neutrophils # Man Lymphocytes # (Manual) Monocytes # (Manual) PT INR D-Dimer ABG pH POC ABG pCO2 POC ABG pO2 ABG pO2 ABG HCO3 ABG Base Excess ABG Hemoglobin ABG Oxyhemoglobin ABG Sodium ABG Potassium ABG Chloride ABG Glucose Carboxyhemoglobin Sodium Potassium Chloride Carbon Dioxide BUN Creatinine Glucose POC Glucose 197 H 219 H 203 H Lactic Acid Calcium Phosphorus Ferritin Total Bilirubin Direct Bilirubin AST ALT Lactate Dehydrogenase Total Creatine Kinase Troponin T Total Protein Albumin Triglycerides Arterial Blood Glucose Arterial Blood Ionized Calcium Urine pH Urine Creatinine Salicylates Acetaminophen Coronavirus (PCR) 09/27/20 09/28/20 09/28/20 23:26 05:28 07:02 WBC RBC Hgb Hct MCHC RDW Lymph % (Auto) Harper % (Auto) Lymph # (Auto) Harper # (Auto) Seg Neutrophils % Seg Neuts % (Manual) Lymphocytes % (Manual) Monocytes % (Manual) Nucleated RBC % Seg Neutrophils # Seg Neutrophils # Man Lymphocytes # (Manual) Monocytes # (Manual) PT INR D-Dimer ABG pH POC ABG pCO2 POC ABG pO2 ABG pO2 ABG HCO3 ABG Base Excess ABG Hemoglobin ABG Oxyhemoglobin ABG Sodium ABG Potassium ABG Chloride ABG Glucose Carboxyhemoglobin Sodium Potassium Chloride Carbon Dioxide BUN 37 H Creatinine 3.8 H Glucose 270 H POC Glucose 243 H 227 H Lactic Acid Calcium Phosphorus Ferritin Total Bilirubin Direct Bilirubin AST ALT Lactate Dehydrogenase Total Creatine Kinase Troponin T Total Protein Albumin Triglycerides Arterial Blood Glucose Arterial Blood Ionized Calcium Urine pH Urine Creatinine Salicylates Acetaminophen Coronavirus (PCR) 09/28/20 09/28/20 09/28/20 07:02 11:35 17:44 WBC RBC 3.26 L Hgb 9.3 L Hct 28.7 L MCHC RDW 18.5 H Lymph % (Auto) Harper % (Auto) 12.7 H Lymph # (Auto) Harper # (Auto) 1.1 H Seg Neutrophils % Seg Neuts % (Manual) Lymphocytes % (Manual) Monocytes % (Manual) Nucleated RBC % Seg Neutrophils # Seg Neutrophils # Man Lymphocytes # (Manual) Monocytes # (Manual) PT INR D-Dimer ABG pH POC ABG pCO2 POC ABG pO2 ABG pO2 ABG HCO3 ABG Base Excess ABG Hemoglobin ABG Oxyhemoglobin ABG Sodium ABG Potassium ABG Chloride ABG Glucose Carboxyhemoglobin Sodium Potassium Chloride Carbon Dioxide BUN Creatinine Glucose POC Glucose 230 H 237 H Lactic Acid Calcium Phosphorus Ferritin Total Bilirubin Direct Bilirubin AST ALT Lactate Dehydrogenase Total Creatine Kinase Troponin T Total Protein Albumin Triglycerides Arterial Blood Glucose Arterial Blood Ionized Calcium Urine pH Urine Creatinine Salicylates Acetaminophen Coronavirus (PCR) 09/28/20 09/29/20 09/29/20 23:52 05:11 05:20 WBC RBC Hgb Hct MCHC RDW Lymph % (Auto) Harper % (Auto) Lymph # (Auto) Harper # (Auto) Seg Neutrophils % Seg Neuts % (Manual) Lymphocytes % (Manual) Monocytes % (Manual) Nucleated RBC % Seg Neutrophils # Seg Neutrophils # Man Lymphocytes # (Manual) Monocytes # (Manual) PT INR D-Dimer ABG pH POC ABG pCO2 POC ABG pO2 ABG pO2 ABG HCO3 ABG Base Excess ABG Hemoglobin ABG Oxyhemoglobin ABG Sodium ABG Potassium ABG Chloride ABG Glucose Carboxyhemoglobin Sodium Potassium Chloride Carbon Dioxide BUN 47 H Creatinine 4.2 H Glucose 289 H POC Glucose 261 H 254 H Lactic Acid Calcium Phosphorus Ferritin Total Bilirubin Direct Bilirubin AST ALT Lactate Dehydrogenase Total Creatine Kinase Troponin T Total Protein Albumin Triglycerides Arterial Blood Glucose Arterial Blood Ionized Calcium Urine pH Urine Creatinine Salicylates Acetaminophen Coronavirus (PCR) 09/29/20 09/29/20 09/29/20 05:20 11:55 17:13 WBC RBC 3.23 L Hgb 9.0 L Hct 27.7 L MCHC RDW 18.3 H Lymph % (Auto) 13.0 L Harper % (Auto) 13.8 H Lymph # (Auto) Harper # (Auto) 1.5 H Seg Neutrophils % 72.3 H Seg Neuts % (Manual) Lymphocytes % (Manual) Monocytes % (Manual) Nucleated RBC % Seg Neutrophils # Seg Neutrophils # Man Lymphocytes # (Manual) Monocytes # (Manual) PT INR D-Dimer ABG pH POC ABG pCO2 POC ABG pO2 ABG pO2 ABG HCO3 ABG Base Excess ABG Hemoglobin ABG Oxyhemoglobin ABG Sodium ABG Potassium ABG Chloride ABG Glucose Carboxyhemoglobin Sodium Potassium Chloride Carbon Dioxide BUN Creatinine Glucose POC Glucose 263 H 279 H Lactic Acid Calcium Phosphorus Ferritin Total Bilirubin Direct Bilirubin AST ALT Lactate Dehydrogenase Total Creatine Kinase Troponin T Total Protein Albumin Triglycerides Arterial Blood Glucose Arterial Blood Ionized Calcium Urine pH Urine Creatinine Salicylates Acetaminophen Coronavirus (PCR) 09/29/20 09/30/20 09/30/20 23:25 05:15 06:57 WBC RBC 3.14 L Hgb 9.0 L Hct 27.4 L MCHC RDW 18.5 H Lymph % (Auto) Harper % (Auto) Lymph # (Auto) Harper # (Auto) Seg Neutrophils % Seg Neuts % (Manual) Lymphocytes % (Manual) Monocytes % (Manual) 13.0 H Nucleated RBC % Seg Neutrophils # Seg Neutrophils # Man Lymphocytes # (Manual) Monocytes # (Manual) 1.1 H PT INR D-Dimer ABG pH POC ABG pCO2 POC ABG pO2 ABG pO2 ABG HCO3 ABG Base Excess ABG Hemoglobin ABG Oxyhemoglobin ABG Sodium ABG Potassium ABG Chloride ABG Glucose Carboxyhemoglobin Sodium Potassium Chloride Carbon Dioxide BUN Creatinine Glucose POC Glucose 284 H 283 H Lactic Acid Calcium Phosphorus Ferritin Total Bilirubin Direct Bilirubin AST ALT Lactate Dehydrogenase Total Creatine Kinase Troponin T Total Protein Albumin Triglycerides Arterial Blood Glucose Arterial Blood Ionized Calcium Urine pH Urine Creatinine Salicylates Acetaminophen Coronavirus (PCR) 09/30/20 09/30/20 09/30/20 11:54 17:28 23:34 WBC RBC Hgb Hct MCHC RDW Lymph % (Auto) Harper % (Auto) Lymph # (Auto) Harper # (Auto) Seg Neutrophils % Seg Neuts % (Manual) Lymphocytes % (Manual) Monocytes % (Manual) Nucleated RBC % Seg Neutrophils # Seg Neutrophils # Man Lymphocytes # (Manual) Monocytes # (Manual) PT INR D-Dimer ABG pH POC ABG pCO2 POC ABG pO2 ABG pO2 ABG HCO3 ABG Base Excess ABG Hemoglobin ABG Oxyhemoglobin ABG Sodium ABG Potassium ABG Chloride ABG Glucose Carboxyhemoglobin Sodium Potassium Chloride Carbon Dioxide BUN Creatinine Glucose POC Glucose 288 H 262 H 258 H Lactic Acid Calcium Phosphorus Ferritin Total Bilirubin Direct Bilirubin AST ALT Lactate Dehydrogenase Total Creatine Kinase Troponin T Total Protein Albumin Triglycerides Arterial Blood Glucose Arterial Blood Ionized Calcium Urine pH Urine Creatinine Salicylates Acetaminophen Coronavirus (PCR) 10/01/20 10/01/20 10/01/20 04:33 04:49 05:30 WBC RBC 2.87 L Hgb 8.2 L Hct 24.9 L MCHC RDW 18.2 H Lymph % (Auto) Harper % (Auto) Lymph # (Auto) Harper # (Auto) 1.2 H Seg Neutrophils % Seg Neuts % (Manual) Lymphocytes % (Manual) Monocytes % (Manual) Nucleated RBC % Seg Neutrophils # Seg Neutrophils # Man Lymphocytes # (Manual) Monocytes # (Manual) PT INR D-Dimer ABG pH POC ABG pCO2 POC ABG pO2 ABG pO2 ABG HCO3 ABG Base Excess ABG Hemoglobin 10.0 L ABG Oxyhemoglobin ABG Sodium ABG Potassium ABG Chloride ABG Glucose 270 H Carboxyhemoglobin Sodium Potassium Chloride Carbon Dioxide BUN Creatinine Glucose POC Glucose 219 H Lactic Acid Calcium Phosphorus Ferritin Total Bilirubin Direct Bilirubin AST ALT Lactate Dehydrogenase Total Creatine Kinase Troponin T Total Protein Albumin Triglycerides Arterial Blood Glucose 270 H Arterial Blood Ionized Calcium Urine pH Urine Creatinine Salicylates Acetaminophen Coronavirus (PCR) 10/01/20 10/01/20 10/01/20 12:10 16:32 23:36 WBC RBC Hgb Hct MCHC RDW Lymph % (Auto) Harper % (Auto) Lymph # (Auto) Harper # (Auto) Seg Neutrophils % Seg Neuts % (Manual) Lymphocytes % (Manual) Monocytes % (Manual) Nucleated RBC % Seg Neutrophils # Seg Neutrophils # Man Lymphocytes # (Manual) Monocytes # (Manual) PT INR D-Dimer ABG pH POC ABG pCO2 POC ABG pO2 ABG pO2 ABG HCO3 ABG Base Excess ABG Hemoglobin ABG Oxyhemoglobin ABG Sodium ABG Potassium ABG Chloride ABG Glucose Carboxyhemoglobin Sodium Potassium Chloride Carbon Dioxide BUN Creatinine Glucose POC Glucose 266 H 259 H 262 H Lactic Acid Calcium Phosphorus Ferritin Total Bilirubin Direct Bilirubin AST ALT Lactate Dehydrogenase Total Creatine Kinase Troponin T Total Protein Albumin Triglycerides Arterial Blood Glucose Arterial Blood Ionized Calcium Urine pH Urine Creatinine Salicylates Acetaminophen Coronavirus (PCR) 10/02/20 10/02/20 10/02/20 00:58 05:29 10:16 WBC RBC Hgb Hct MCHC RDW Lymph % (Auto) Harper % (Auto) Lymph # (Auto) Harper # (Auto) Seg Neutrophils % Seg Neuts % (Manual) Lymphocytes % (Manual) Monocytes % (Manual) Nucleated RBC % Seg Neutrophils # Seg Neutrophils # Man Lymphocytes # (Manual) Monocytes # (Manual) PT INR D-Dimer ABG pH 7.468 H POC ABG pCO2 POC ABG pO2 72.9 L ABG pO2 ABG HCO3 ABG Base Excess ABG Hemoglobin 10.1 L ABG Oxyhemoglobin 93.1 L ABG Sodium ABG Potassium ABG Chloride 108.0 H ABG Glucose 289 H Carboxyhemoglobin Sodium Potassium Chloride Carbon Dioxide BUN 58 H Creatinine 5.0 H Glucose 324 H POC Glucose 260 H Lactic Acid Calcium Phosphorus Ferritin Total Bilirubin Direct Bilirubin AST ALT Lactate Dehydrogenase Total Creatine Kinase Troponin T Total Protein Albumin Triglycerides Arterial Blood Glucose 289 H Arterial Blood Ionized Calcium Urine pH Urine Creatinine Salicylates Acetaminophen Coronavirus (PCR) 10/02/20 10/02/20 10/03/20 11:29 17:55 00:11 WBC RBC Hgb Hct MCHC RDW Lymph % (Auto) Harper % (Auto) Lymph # (Auto) Harper # (Auto) Seg Neutrophils % Seg Neuts % (Manual) Lymphocytes % (Manual) Monocytes % (Manual) Nucleated RBC % Seg Neutrophils # Seg Neutrophils # Man Lymphocytes # (Manual) Monocytes # (Manual) PT INR D-Dimer ABG pH POC ABG pCO2 POC ABG pO2 ABG pO2 ABG HCO3 ABG Base Excess ABG Hemoglobin ABG Oxyhemoglobin ABG Sodium ABG Potassium ABG Chloride ABG Glucose Carboxyhemoglobin Sodium Potassium Chloride Carbon Dioxide BUN Creatinine Glucose POC Glucose 268 H 210 H 172 H Lactic Acid Calcium Phosphorus Ferritin Total Bilirubin Direct Bilirubin AST ALT Lactate Dehydrogenase Total Creatine Kinase Troponin T Total Protein Albumin Triglycerides Arterial Blood Glucose Arterial Blood Ionized Calcium Urine pH Urine Creatinine Salicylates Acetaminophen Coronavirus (PCR)
--- NOTE | 2020-10-03 13:12 | Progress Note ---
Assessment and Plan Assessment and plan: S/p cardiopulmonary arrest (out of hospital) Toxic metabolic encephalopathy +/-anoxic injury Acute hypoxic respiratory failure Nonoliguric acute kidney injury secondary to ATN. Patient status post emergent hemodialysis 09/08. Seizure disorder Hyperkalemia Hypernatremia COVID-19 pneumonia Sepsis Transaminitis Morbid obesity. 09/15/2020. MRI brain for further evaluation. Continue AEDs of valproic acid and Keppra. Continue hemodialysis per nephrology recommendations. Overall prognosis remains guarded and poor. 09/16/2020. ID recommends continue to monitor patient off of antibiotics. Fever most likely of central etiology. Patient with questionable seizures versus myoclonus from anoxic brain injury. Patient unable to undergo MRI due to body habitus. Continue AEDs per neurology recommendations. Inflammatory markers elevated. Patient was recently hospitalized for COVID-19 pneumonia at the [place] prior to being hospitalized here. Patient not a candidate for remdesivir due to hepatic and renal failure. Viral hepatitis panel negative. Overall prognosis extremely poor. 09/17/2020. Fevers have resolved over the past 48 hours. Continue to monitor off antibiotics per ID recommendations. Patient with questionable seizures versus myoclonus from anoxic brain injury. Patient unable to undergo MRI due to body habitus. EEG is nonspecific but given CT of head findings consistent with anoxic encephalopathy, brain injury. Continue AEDs per neurology recommendations. Inflammatory markers elevated. Patient was recently hospitalized for COVID-19 pneumonia at the [place] prior to being hospitalized here. Patient not a candidate for remdesivir due to hepatic and renal failure. Viral hepatitis panel negative. Patient is s/p emergent HD on Friday (hyperK) and Friday - 09/08. Patient also S/p HD 09/15. Continue hemodialysis per nephrology recommendations. Patient currently on AC/PRVC mode ventilation with rate of 30, tidal volume 475, FiO2 30% and PEEP of 6. As stated in neuro note, overall prognosis is very poor. 09/18/2020. Fevers have resolved over the past 72 hours. Continue to monitor off antibiotics per ID recommendations. Leukocytosis persistent for the past 4 days. Patient with questionable seizures/myoclonus from anoxic brain injury. Patient unable to undergo MRI due to body habitus. EEG is nonspecific but given CT of head findings consistent with anoxic encephalopathy, brain injury. Continue AEDs per neurology recommendations. Inflammatory markers elevated. Patient was recently hospitalized for COVID-19 pneumonia at the [place]. Patient not a candidate for remdesivir due to hepatic and renal failure. Viral hepatitis panel negative. Patient currently on AC/PRVC mode ventilation with rate of 30, tidal volume 475, FiO2 30% and PEEP of 6. Overall prognosis remains guarded/poor. 09/19/2020 Fevers have resolved over the past 4 days. Continue to monitor off antibiotics per ID recommendations. Leukocytosis persistent for the past 4 days. Patient with questionable seizures/myoclonus from anoxic brain injury. Patient unable to undergo MRI due to body habitus. EEG is nonspecific but given CT of head findings consistent with anoxic encephalopathy, brain injury. Continue AEDs per neurology recommendations. Inflammatory markers elevated. Patient was recently hospitalized for COVID-19 pneumonia at the [place] being [place]. Patient not a candidate for remdesivir due to hepatic and renal failure. Viral hepatitis panel negative. Patient currently on AC/PRVC mode ventilation with rate of 30, tidal volume 475, FiO2 30% and PEEP of 6. Overall prognosis remains guarded/poor. 09/20/2020 -Surgery consulted for PEG and trach, will continue to follow. 09/21/2020; patient will have PEG and trach by Dr. hayes today. Prognosis is poor. Continue with current management. [employer] Decorator is following for vent management. 09/22/2020; patient had PEG and trach yesterday. 09/23/2020; continue PEG Tube Feeding. 09/24/2020; continue PEG tube feeding, patient is on Keppra, lorazepam and pheny toin per neurology recommendation. Patient is on hemodialysis and nephrology is following. Management of mechanical ventilation for CCM. 09/25/2020. Continue PEG tube feeding, patient is on Keppra, lorazepam and phenytoin per neurology recommendation. Patient is on hemodialysis and nephrology is following. Management of mechanical ventilation for CCM. Continue PSV/CPAP 07/16. Continue tracheostomy care, secretion control and airway management. 09/26/2020. Patient has tolerated PSV for approximately 48 hours. I discussed with pulmonary possibility of T-piece today. Continue tracheostomy care, secretion control and airway management. If patient tolerates T-piece trials, patient will be transferred to the floor. Continue AEDs of Keppra and phenytoin as well as Ativan as needed per neurology recommendations. Continue hemodialysis per nephrology. Continue TF with aspiration precautions. 09/27/2020. Patient continues to tolerate PSV 12/6 at 30% FiO2. T-piece trials per pulmonary. Continue tracheostomy care, secretion control and airway management. Continue AEDs of Keppra and phenytoin as well as Ativan as needed per neurology recommendations. Continue hemodialysis per nephrology. Continue TF with aspiration precautions. 09/28/2020. Patient for T-piece trials per pulmonary. Continue hemodialysis per nephrology. Continue tracheostomy care, secretion control and airway management. Continue AEDs of Keppra and phenytoin as well as Ativan as needed per neurology recommendations. Continue TF with aspiration precautions. 09/29/2020, continue T-piece trials per pulmonary. Continue hemodialysis per nephrology. Continue strict I/O's and labs daily. Monitor for renal recovery. 09/30/2020. Continue T-piece trials per pulmonary recommendations. Continue tracheostomy care, secretion control and airway management. Continue hemodialysis per nephrology. Tight glycemic control. Continue TF with aspiration precautions. 10/01/2020. Patient with T-piece trials and tolerating. Wean to trach collar per pulmonary. Continue tracheostomy care, secretion control and airway management. Continue hemodialysis per nephrology. Tight glycemic control. Continue TF with aspiration precautions. Case management consultation for placement 10/02/20. Continue T-piece trials per pulmonary recommendations. Continue tracheostomy care, secretion control and airway management. Continue hemodialysis per nephrology. Tight glycemic control. Continue TF with aspiration precautions. 10/03/2020. Continue T-piece trials per pulmonology. Continue tracheostomy care, secretion control and airway management. Continue modalities per nephrology. Discharge planning underway. Needs placement to SNF versus hospice. The high probability of a clinically significant, sudden or life threatening deterioration of the [cardiac, respiratory and neurological] system(s) required my full and direct attention, intervention and personal management. The aggregate critical care time was [31] minutes. This time is in addition to time spent performing reported procedures but includes the following: [x] Data Review and interpretation [x] Patient assessment and monitoring of vital signs [x] Documentation [x] Medication orders and management History Interval history: 65 y/o male with out of hospital cardiac arrest, acute hypoxic respiratory failure and COVID-19 infection. Hospitalist Physical - Constitutional Vitals: Temp Pulse Resp BP Pulse Ox 99.5 F 80 26 H 134/62 98 10/03/20 04:54 10/03/20 10:00 10/03/20 10:00 10/03/20 04:54 10/03/20 10:25 General appearance: Present: other (On mechanical ventilation) HEART Score - HEART Score Troponin: Troponin T 0.076 ng/mL (0.00-0.029) H 09/07/20 14:00 Results - Labs CBC & Chem 7: 10/01/20 04:33 10/02/20 00:58 Labs: Laboratory Last Values WBC 7.2 K/mm3 (4.5-11.0) 10/01/20 04:33 RBC 2.87 M/mm3 (3.65-5.03) L 10/01/20 04:33 Hgb 8.2 gm/dl (11.8-15.2) L 10/01/20 04:33 Hct 24.9 % (35.5-45.6) L 10/01/20 04:33 MCV 87 fl (84-94) 10/01/20 04:33 MCH 29 pg (28-32) 10/01/20 04:33 MCHC 33 % (32-34) 10/01/20 04:33 RDW 18.2 % (13.2-15.2) H 10/01/20 04:33 Plt Count 185 K/mm3 (140-440) 10/01/20 04:33 Lymph % (Auto) 27.0 % (13.4-35.0) 10/01/20 04:33 [place] % (Auto) Assisted Living Nursing Director 10/01/20 04:33 Eos % (Auto) 1.4 % (0.0-4.3) 10/01/20 04:33 Baso % (Auto) 0.3 % (0.0-1.8) 10/01/20 04:33 Lymph # (Auto) 1.9 K/mm3 (1.2-5.4) 10/01/20 04:33 [place] # (Auto) 1.2 K/mm3 (0.0-0.8) H 10/01/20 04:33 Eos # (Auto) 0.1 K/mm3 (0.0-0.4) 10/01/20 04:33 Baso # (Auto) 0.0 K/mm3 (0.0-0.1) 10/01/20 04:33 Add Manual Diff Complete 09/30/20 06:57 Total Counted 100 09/30/20 06:57 Seg Neutrophils % 54.7 % (40.0-70.0) 10/01/20 04:33 Seg Neuts % (Manual) 55.0 % (40.0-70.0) 09/30/20 06:57 Band Neutrophils % 8.0 % 09/30/20 06:57 Lymphocytes % (Manual) 23.0 % (13.4-35.0) 09/30/20 06:57 Monocytes % (Manual) 13.0 % (0.0-7.3) H 09/30/20 06:57 Eosinophils % (Manual) 2.0 % (0.0-4.3) 09/07/20 14:00 Basophils % (Manual) 1.0 % (0.0-1.8) 09/30/20 06:57 Metamyelocytes % 2.0 % 09/08/20 Unknown Nucleated RBC % Not Reportable 09/30/20 06:57 Seg Neutrophils # 3.9 K/mm3 (1.8-7.7) 10/01/20 04:33 Seg Neutrophils # Man 4.8 K/mm3 (1.8-7.7) 09/30/20 06:57 Band Neutrophils # 0.7 K/mm3 09/30/20 06:57 Lymphocytes # (Manual) 2.0 K/mm3 (1.2-5.4) 09/30/20 06:57 Abs React Lymphs (Man) 0.0 K/mm3 09/30/20 06:57 Monocytes # (Manual) 1.1 K/mm3 (0.0-0.8) H 09/30/20 06:57 Eosinophils # (Manual) 0.0 K/mm3 (0.0-0.4) 09/30/20 06:57 Basophils # (Manual) 0.1 K/mm3 (0.0-0.1) 09/30/20 06:57 Metamyelocytes # 0.0 K/mm3 09/30/20 06:57 Myelocytes # 0.0 K/mm3 09/30/20 06:57 Promyelocytes # 0.0 K/mm3 09/30/20 06:57 Blast Cells # 0.0 K/mm3 09/30/20 06:57 WBC Morphology Not Reportable 09/30/20 06:57 Hypersegmented Neuts Not Reportable 09/30/20 06:57 Hyposegmented Neuts Not Reportable 09/30/20 06:57 Hypogranular Neuts Not Reportable 09/30/20 06:57 Smudge Cells Not Reportable 09/30/20 06:57 Toxic Granulation Not Reportable 09/30/20 06:57 Toxic Vacuolation Not Reportable 09/30/20 06:57 Dohle Bodies Not Reportable 09/30/20 06:57 Pelger-Huet Anomaly Not Reportable 09/30/20 06:57 Justus Rods Not Reportable 09/30/20 06:57 Platelet Estimate Consistent w auto 09/30/20 06:57 Clumped Platelets Not Reportable 09/30/20 06:57 Plt Clumps, EDTA Not Reportable 09/30/20 06:57 Large Platelets Not Reportable 09/30/20 06:57 Giant Platelets Not Reportable 09/30/20 06:57 Platelet Satelliting Not Reportable 09/30/20 06:57 Plt Morphology Comment Not Reportable 09/30/20 06:57 RBC Morphology Not Reportable 09/30/20 06:57 Dimorphic RBCs Not Reportable 09/30/20 06:57 Polychromasia Not Reportable 09/30/20 06:57 Hypochromasia Not Reportable 09/30/20 06:57 Poikilocytosis Not Reportable 09/30/20 06:57 Anisocytosis Not Reportable 09/30/20 06:57 Microcytosis Not Reportable 09/30/20 06:57 Macrocytosis Not Reportable 09/30/20 06:57 Spherocytes Not Reportable 09/30/20 06:57 Pappenheimer Bodies Not Reportable 09/30/20 06:57 Sickle Cells Not Reportable 09/30/20 06:57 Target Cells Not Reportable 09/30/20 06:57 Tear Drop Cells Not Reportable 09/30/20 06:57 Ovalocytes Rare 09/30/20 06:57 Helmet Cells Not Reportable 09/30/20 06:57 [place] Bodies Not Reportable 09/30/20 06:57 N[place]mith Rings Not Reportable 09/30/20 06:57 Manjit Cells Not Reportable 09/30/20 06:57 Bite Cells Not Reportable 09/30/20 06:57 Crenated Cell Not Reportable 09/30/20 06:57 Elliptocytes Not Reportable 09/30/20 06:57 Acanthocytes (Spur) Not Reportable 09/30/20 06:57 Rouleaux Not Reportable 09/30/20 06:57 Hemoglobin C Crystals Not Reportable 09/30/20 06:57 Schistocytes Not Reportable 09/30/20 06:57 Malaria parasites Not Reportable 09/30/20 06:57 Tommie Bodies Not Reportable 09/30/20 06:57 Hem Pathologist Commnt No 09/30/20 06:57 PT 16.1 Sec. (12.2-14.9) H 09/12/20 04:00 INR 1.31 (0.87-1.13) H 09/12/20 04:00 APTT 32.4 Sec. (24.2-36.6) 09/09/20 10:00 D-Dimer 8315.85 ng/mlDDU (0-234) H 09/07/20 14:00 ABG pH 7.468 (7.320-7.450) H 10/02/20 10:16 POC ABG pCO2 37.1 mmHg (32.0-48.0) 10/02/20 10:16 ABG pCO2 33.4 mm Hg 09/11/20 05:40 POC ABG pO2 72.9 mmHg (83-108) L 10/02/20 10:16 ABG pO2 112.1 mm Hg (80.0-90.0) H 09/11/20 05:40 POC ABG HCO3 26.3 10/02/20 10:16 ABG HCO3 28.1 mmol/L (20.0-26.0) H 09/11/20 05:40 ABG O2 Saturation 98.4 % (95.0-99.0) 09/11/20 05:40 ABG O2 Content 11.6 (0.0-44) 09/11/20 05:40 POC ABG Base Excess 2.6 10/02/20 10:16 ABG Base Excess 5.4 mmol/L (-2.0-3.0) H 09/11/20 05:40 ABG Hemoglobin 10.1 (12.0-17.5) L 10/02/20 10:16 ABG Oxyhemoglobin 93.1 (94-98) L 10/02/20 10:16 ABG Carboxyhemoglobin 1.2 % (0.0-5.0) 09/11/20 05:40 ABG Methemoglobin 0.3 (0.0-1.5) 10/02/20 10:16 ABG Sodium 138.5 mmol/L (136.0-145.0) 10/02/20 10:16 ABG Potassium 3.9 mmol/L (3.40-4.50) 10/02/20 10:16 ABG Chloride 108.0 mmol/L (98-107) H 10/02/20 10:16 ABG Glucose 289 mg/dL (65-95) H 10/02/20 10:16 Oxyhemoglobin 96.8 % (95.0-99.0) 09/11/20 05:40 Carboxyhemoglobin 0.8 (0.5-1.5) 10/02/20 10:16 FiO2 35 10/02/20 10:16 Sodium 141 mmol/L (137-145) 10/02/20 00:58 Potassium 4.2 mmol/L (3.6-5.0) 10/02/20 00:58 Chloride 103.3 mmol/L (98-107) 10/02/20 00:58 Carbon Dioxide 27 mmol/L (22-30) 10/02/20 00:58 Anion Gap 15 mmol/L 10/02/20 00:58 BUN 58 mg/dL (9-20) H 10/02/20 00:58 Creatinine 5.0 mg/dL (0.8-1.3) H 10/02/20 00:58 Estimated GFR 14 ml/min 10/02/20 00:58 BUN/Creatinine Ratio 12 % 10/02/20 00:58 Glucose 324 mg/dL (75-100) H 10/02/20 00:58 POC Glucose 172 mg/dL (70-105) H 10/03/20 00:11 Lactic Acid 2.90 mmol/L (0.7-2.0) H* 09/17/20 13:52 Calcium 10.1 mg/dL (8.4-10.2) 10/02/20 00:58 Phosphorus 8.00 mg/dL (2.5-4.5) H 09/08/20 12:02 Magnesium 1.80 mg/dL (1.7-2.3) 09/08/20 12:02 Ferritin > 2000.0 ng/mL (30.0-300.0) H 09/07/20 14:00 Total Bilirubin 0.50 mg/dL (0.1-1.2) 09/25/20 05:18 Direct Bilirubin 0.5 mg/dL (0-0.2) H 09/08/20 05:00 Indirect Bilirubin 0.5 mg/dL 09/08/20 05:00 AST 55 units/L (5-40) H 09/25/20 05:18 ALT 74 units/L (7-56) H 09/25/20 05:18 Alkaline Phosphatase 81 units/L (35-129) 09/25/20 05:18 Ammonia 50.0 umol/L (25-60) 09/07/20 14:00 Lactate Dehydrogenase 882 units/L (91-180) H 09/07/20 14:00 Total Creatine Kinase 477 units/L (55-170) H 09/07/20 14:00 Troponin T 0.076 ng/mL (0.00-0.029) H 09/07/20 14:00 C-Reactive Protein 1.10 mg/dL (0.00-1.30) 09/07/20 14:00 Total Protein 7.0 g/dL (6.3-8.2) 09/25/20 05:18 Albumin 2.6 g/dL (3.9-5) L 09/25/20 05:18 Albumin/Globulin Ratio 0.6 % 09/25/20 05:18 Triglycerides 220 mg/dL (2-149) H 09/12/20 Unknown Procalcitonin 1.52 ng/mL (<0.15) 09/17/20 13:02 TSH 2.290 mlU/mL (0.270-4.200) 09/07/20 14:00 Arterial Blood Glucose 289 mg/dL (65-95) H 10/02/20 10:16 Arterial Blood Ionized Calcium 5.2 mg/dL (4.6-5.3) 10/02/20 10:16 Urine Color Straw (Yellow) 09/07/20 13:08 Urine Turbidity Slightly-cloudy (Clear) 09/07/20 13:08 Urine pH 8.0 (5.0-7.0) H 09/07/20 13:08 Ur Specific [place] 1.006 (1.003-1.030) 09/07/20 13:08 Urine Protein 100 mg/dl mg/dL (Negative) 09/07/20 13:08 Urine Glucose (UA) Neg mg/dL (Negative) 09/07/20 13:08 Urine Ketones Neg mg/dL (Negative) 09/07/20 13:08 Urine Blood Neg (Negative) 09/07/20 13:08 Urine Nitrite Neg (Negative) 09/07/20 13:08 Urine Bilirubin Neg (Negative) 09/07/20 13:08 Urine Urobilinogen < 2.0 mg/dL (<2.0) 09/07/20 13:08 Ur Leukocyte Esterase Neg (Negative) 09/07/20 13:08 Urine WBC (Auto) 4.0 /HPF (0.0-6.0) 09/07/20 13:08 Urine RBC (Auto) 18.0 /HPF (0.0-6.0) 09/07/20 13:08 U Epithel Cells (Auto) 1.0 /HPF (0-13.0) 09/07/20 13:08 Urine Mucus Few /HPF 09/07/20 13:08 Urine Sperm 3+ /HPF (CATEGORY DEVELOPMENT MANAGER) 09/07/20 13:08 Urine Creatinine 182.4 mg/dL (0.1-20.0) H 09/08/20 Unknown Urine Sodium 40 mmol/L 09/08/20 Unknown Salicylates < 0.3 mg/dL (2.8-20.0) L 09/07/20 14:00 Acetaminophen 5.0 ug/mL (10.0-30.0) L 09/07/20 14:00 Plasma/Serum Alcohol < 0.01 % (0-0.07) 09/07/20 14:00 Coronavirus (PCR) Negative (Negative) 09/19/20 Unknown Hepatitis A IgM Ab Non-reactive (NonReactive) 09/07/20 14:00 Hep Bs Antigen Non-reactive (Negative) 09/07/20 14:00 Hep B Core IgM Ab Non-reactive (NonReactive) 09/07/20 14:00 Hepatitis C Antibody Non-reactive (NonReactive) 09/07/20 14:00 HIV 1&2 Antibody Rapid Non react (Non React) 09/07/20 14:34 HIV P24 Antigen Non react (Non React) 09/07/20 14:34 Blood Type O POSITIVE 09/09/20 10:00 Antibody Screen Negative 09/07/20 14:00 Mae/IV: Voiding Method Condom Catheter IV Catheter Type [Right Triple Lumen Cath Femoral] IV Catheter Type [Left Peripheral IV Antecubital] IV Catheter Type [Left Hand] Peripheral IV IV Catheter Type [Right Peripheral IV Antecubital] Active Medications - Current Medications Current Medications: Generic Name Dose Route Start Last Admin Trade Name Freq PRN Reason Stop Dose Admin Acetaminophen 650 mg 10/02/20 09:00 10/03/20 09:15 Acetaminophen 325 Mg/10.15 Ml Oral Liqd Unit Dose PO 650 mg Q4HR PRN Administration Non Cardiac Pain or Temp>100.5 Lipase/Protease/Amylase 1 each 09/09/20 09:40 Lipase 10,500/Protease 25,000/Amylase 43,750 (Units) Dr Armenta FEEDTUBE PRN PRN For Clogged Feeding Tube Hydralazine HCl 50 mg 09/23/20 14:00 10/03/20 06:07 Hydralazine 25 Mg Tab PO Not Given Q8HR TAYLOR Sodium Chloride 100 mls @ 999 mls/hr 09/09/20 13:36 Nacl 0.9% IV JAYJAY PRN Hypotension Insulin Glargine 25 units 10/03/20 10:00 10/03/20 09:18 Insulin Glargine 100 Units/Ml SUB-Q 25 units DAILY TAYLOR Administration Insulin Human Lispro 0 unit 09/12/20 12:00 10/03/20 12:52 Insulin Lispro 100 Unit/Ml SUB-Q 8 unit Q6HR TAYLOR Administration Protocol Lansoprazole 30 mg 09/11/20 11:00 10/03/20 09:17 Lansoprazole 30 Mg Solutab FEEDTUBE 30 mg BID TAYLOR Administration Levetiracetam 1,500 mg 09/28/20 10:00 10/03/20 09:15 Levetiracetam 500 Mg/5 Ml Oral Liqd PO 1,500 mg BID TAYLOR Administration Multivitamins 5 ml 09/09/20 12:00 10/03/20 10:05 Multivitamins 5 Ml Oral Liquid PO 5 ml QDAY TAYLOR Administration Ondansetron HCl 4 mg 09/07/20 17:55 09/19/20 04:00 Ondansetron 4 Mg/2 Ml Inj IV 4 mg Q8H PRN Administration Nausea And Vomiting Senna/Docusate Sodium 2 tab 09/20/20 11:00 Sennosides/Docusate Sodium 8.6/50 Mg Tab PO BID PRN Laxative Effect Simple Syrup 15 ml 09/09/20 09:40 09/17/20 17:43 Simple Syrup 15 Ml FEEDTUBE 15 ml PRN PRN Administration Hypoglycemia Simple Syrup 30 ml 09/09/20 09:40 Simple Syrup 15 Ml FEEDTUBE PRN PRN Hypoglycemia Sodium Bicarbonate 325 mg 09/09/20 09:40 Sodium Bicarbonate 325 Mg Tab FEEDTUBE PRN PRN For Clogged Feeding Tube Sodium Chloride 10 ml 09/07/20 22:00 10/03/20 09:18 Sodium Chloride 0.9% 10 Ml Flush Syringe IV 10 ml BID TAYLOR Administration Sodium Chloride 10 ml 09/07/20 17:55 Sodium Chloride 0.9% 10 Ml Flush Syringe IV PRN PRN LINE FLUSH Valproic Acid 1,000 mg 09/28/20 10:00 10/03/20 10:04 Valproic Acid 250 Mg/5 Ml Oral Liqd FEEDTUBE 1,000 mg BID TAYLOR Administration Nutrition/Malnutrition Assess - Dietary Evaluation Nutrition/Malnutrition Findings: Nutrition Notes Start: 09/08/20 12:01 Freq: Status: Active Protocol: Document 10/03/20 09:29 CW (Rec: 10/03/20 09:46 CW [id number]) Nutrition Notes Initial or Follow up Reassessment Current Diagnosis Acute Kidney Injury, Respiratory Failure Other Pertinent Diagnosis on HD, cardiac arrest, COVID ( +), metabolic encephalopathy, pneu Current Diet Nepro 1.8 at 45 mL/hr (goal rate) Labs/Tests BUN 50 Cr 5 BG 324 Pertinent Medications Lantus 35 uNITS Height 6 ft Weight 145.18 kg [place] Body Weight (kg) 80.90 BMI 43.4 Weight change and time frame Weight stable at this time Weight Status Morbidly Obese Subjective/Other Information F/U for TF tolerance. Pt is tolerating TF at goal rate (45 ml/hr).Last BM on 09/27. Will inquire for rx intervention. Pt no longer hypernatremic, however will not adjust TF to decreased flush at this time d /t constipation Percent of energy/protein needs met: 99%/43% Burn Absent Trauma Absent GI Symptoms None Current % PO Negligible Minimum of two criteria No physical signs of malnutrition #2 Nutrition Diagnosis Increased nutrient needs ( specify in comment below) As Evidenced by Signs and Symptoms PT no longer in critical care; Protein needs back down to >1 .2 kcal/kgAdjBW Diagnosis Progress(for reassessment Improved documentation) #1 Nutrition Diagnosis Inadequate oral intake Diagnosis Progress(for reassessment Continues documentation) Is patient on ventilator? No Is Patient Ambulatory and/or Out of Bed No REE-([place] or-confined to bed) 2740.164 Kcal/Kg value to use for calculation 13 Approximate Energy Requirements Using 1887 kcal/Kg Calculation Used for Recommendations Kcal/kg Additional Notes PRO needs: >136g (>1.2g/kg AdjBW 113.04kg) Fluid needs are 1000-1500ml Nutrition Intervention Change Diet Order: TF Nutrition Support: Nepro at 45ml/hr Flush 200ml q4h for hypernatremia. 120ml q4h once resolved Kcal 1,944 Protein (gm) 87 Fluid (mL) 785 Goal #1 Meet kcal and protein needs as best as possible via TF Anticipated Discharge Needs: TF Follow-Up By: 10/06/20 Additional Comments F/U for stable TF
[2020-10-03 13:18] LABS: Calcium 8.9 mg/dL (8.4-10.2)
[2020-10-04 02:30] LABS: Calcium 9.7 mg/dL (8.4-10.2)
[2020-10-04] MEDS: ACETAMINOPHEN 325 MG/10.15 ML ORAL LIQD UNIT DOSE PO PRN (05:10)
[2020-10-04] MEDS: hydrALAZINE 25 MG TAB PO SCH ×3 (05:55→22:25)
[2020-10-04] MEDS: INSULIN LISPRO 100 UNIT/ML SUB-Q SCH ×4 (06:43→18:15)
--- NOTE | 2020-10-04 09:37 | Progress Note ---
Assessment and Plan Impression: * Nonoliguric RYAN secondary to ATN * Severe hyperkalemia - resolved * COVID 19 PNA * s/p OOH cardiac arrest * Acute hypoxic respiratory failure * Seizure activity * Anemia * Hypernatremia Plan: * HD today. Continue MWF for now. * Continue to monitor for renal recovery * Patient w/ fever - has a left femoral vascath. Will remove after HD today. * Blood cx pending * Abx per primary team * Strict I/O * Keep MAP > 65 * Dose medications for renal function * Avoid potential nephrotoxins * Prognosis is guarded Subjective Date of service: 10/04/20 Principal diagnosis: Abnormal LFTs, s/p cardiac arrest, acute kidney injury with ATN Interval history: Patient febrile overnight Objective - Vital Signs Vital signs: Vital Signs - 12hr 10/03/20 10/03/20 10/03/20 22:00 22:37 23:46 Temperature 100.9 F H Pulse Rate 91 H 82 85 Pulse Rate [ 83 Left Radial] Pulse Rate [ 83 Right Radial] Respiratory 26 H 40 H Rate Blood Pressure 118/62 121/60 Blood Pressure [Left] O2 Sat by Pulse 98 96 Oximetry O2 Sat by Pulse Oximetry [ Assessment] 10/04/20 10/04/20 10/04/20 03:07 03:08 04:15 Temperature 101.1 F H Pulse Rate 87 Pulse Rate [ Left Radial] Pulse Rate [ Right Radial] Respiratory 36 H Rate Blood Pressure 123/61 Blood Pressure [Left] O2 Sat by Pulse 97 97 Oximetry O2 Sat by Pulse 96 Oximetry [ Assessment] 10/04/20 10/04/20 10/04/20 05:09 05:55 07:49 Temperature 101.1 F H Pulse Rate 87 91 H 92 H Pulse Rate [ Left Radial] Pulse Rate [ Right Radial] Respiratory 36 H Rate Blood Pressure 123/87 132/69 Blood Pressure 123/81 [Left] O2 Sat by Pulse 97 98 Oximetry O2 Sat by Pulse Oximetry [ Assessment] 10/04/20 10/04/20 08:00 08:11 Temperature Pulse Rate Pulse Rate [ Left Radial] Pulse Rate [ Right Radial] Respiratory Rate Blood Pressure Blood Pressure [Left] O2 Sat by Pulse 99 Oximetry O2 Sat by Pulse 98 Oximetry [ Assessment] - General Appearance General appearance: well-developed EENT: ATNC Respiratory: Present: Clear to Ascultation Cardiology: regular, S1S2 Gastrointestinal: normoactive bowel sounds, no distended Musculoskeletal: other (no edema) Psychiatric: other (nonreponsive) - Lab 10/01/20 04:33 10/04/20 01:31 Most recent lab results ABG pH 7.468 (7.320-7.450) H 10/02/20 10:16 ABG pCO2 33.4 mm Hg 09/11/20 05:40 ABG pO2 112.1 mm Hg (80.0-90.0) H 09/11/20 05:40 ABG HCO3 28.1 mmol/L (20.0-26.0) H 09/11/20 05:40 ABG O2 Saturation 98.4 % (95.0-99.0) 09/11/20 05:40 Calcium 9.7 mg/dL (8.4-10.2) 10/04/20 01:31 Phosphorus 8.00 mg/dL (2.5-4.5) H 09/08/20 12:02 Magnesium 1.80 mg/dL (1.7-2.3) 09/08/20 12:02 Urine Creatinine 182.4 mg/dL (0.1-20.0) H 09/08/20 Unknown Urine Sodium 40 mmol/L 09/08/20 Unknown Medications & Allergies - Medications Allergies/Adverse Reactions: Allergies No Known Allergies Allergy (Verified 09/21/20 21:00) Verified with , no known drug allergies. Home Medications: Home Medications Medication Instructions Recorded Confirmed Last Taken Type Albuterol Sulfate 60 mcg IH PRN 09/11/20 09/11/20 Unknown History Cholecalciferol (Vitamin D3) 25 tab PO DAILY 09/11/20 09/11/20 Unknown History Cozaar 25 tab PO DAILY 09/11/20 09/11/20 Unknown History HumaLOG 14 unit SQ AC 09/11/20 09/11/20 Unknown History Hydralazine HCl 50 tab PO TID 09/11/20 09/11/20 Unknown History Isosorbide Dinitrate 30 mg PO DAILY 09/11/20 09/11/20 Unknown History Lantus VIAL 54 units SQ HS 09/11/20 09/11/20 Unknown History Lasix 20 tab PO DAILY 09/11/20 09/11/20 Unknown History Nifedipine 30 tab PO DAILY 09/11/20 09/11/20 Unknown History Active Medications: Generic Name Dose Route Start Last Admin Trade Name Freq PRN Reason Stop Dose Admin Acetaminophen 650 mg 10/02/20 09:00 10/04/20 05:10 Acetaminophen 325 Mg/10.15 Ml Oral Liqd Unit Dose PO 650 mg Q4HR PRN Administration Non Cardiac Pain or Temp>100.5 Lipase/Protease/Amylase 1 each 09/09/20 09:40 Lipase 10,500/Protease 25,000/Amylase 43,750 (Units) Dr Geovany AVALOS PRN PRN For Clogged Feeding Tube Hydralazine HCl 50 mg 09/23/20 14:00 10/04/20 05:55 Hydralazine 25 Mg Tab PO 50 mg Q8HR TAYLOR Administration Sodium Chloride 100 mls @ 999 mls/hr 09/09/20 13:36 Nacl 0.9% IV JAYJAY PRN Hypotension Insulin Glargine 25 units 10/03/20 10:00 10/03/20 09:18 Insulin Glargine 100 Units/Ml SUB-Q 25 units DAILY TAYLOR Administration Insulin Human Lispro 0 unit 09/12/20 12:00 10/04/20 06:43 Insulin Lispro 100 Unit/Ml SUB-Q 4 unit Q6HR TAYLOR Administration Protocol Lansoprazole 30 mg 09/11/20 11:00 10/03/20 22:37 Lansoprazole 30 Mg Solutab FEEDTUBE 30 mg BID TAYLOR Administration Levetiracetam 1,500 mg 09/28/20 10:00 10/03/20 22:37 Levetiracetam 500 Mg/5 Ml Oral Liqd PO 1,500 mg BID TAYLOR Administration Multivitamins 5 ml 09/09/20 12:00 10/03/20 10:05 Multivitamins 5 Ml Oral Liquid PO 5 ml QDAY TAYLOR Administration Ondansetron HCl 4 mg 09/07/20 17:55 09/19/20 04:00 Ondansetron 4 Mg/2 Ml Inj IV 4 mg Q8H PRN Administration Nausea And Vomiting Senna/Docusate Sodium 2 tab 09/20/20 11:00 Sennosides/Docusate Sodium 8.6/50 Mg Tab PO BID PRN Laxative Effect Simple Syrup 15 ml 09/09/20 09:40 09/17/20 17:43 Simple Syrup 15 Ml FEEDTUBE 15 ml PRN PRN Administration Hypoglycemia Simple Syrup 30 ml 09/09/20 09:40 Simple Syrup 15 Ml FEEDTUBE PRN PRN Hypoglycemia Sodium Bicarbonate 325 mg 09/09/20 09:40 Sodium Bicarbonate 325 Mg Tab FEEDTUBE PRN PRN For Clogged Feeding Tube Sodium Chloride 10 ml 09/07/20 22:00 10/03/20 22:25 Sodium Chloride 0.9% 10 Ml Flush Syringe IV 10 ml BID TAYLOR Administration Sodium Chloride 10 ml 09/07/20 17:55 Sodium Chloride 0.9% 10 Ml Flush Syringe IV PRN PRN LINE FLUSH Valproic Acid 1,000 mg 09/28/20 10:00 10/03/20 22:39 Valproic Acid 250 Mg/5 Ml Oral Liqd FEEDTUBE 1,000 mg BID TAYLOR Administration
--- NOTE | 2020-10-04 09:42 | XRay Report ---
CHEST - 1 VIEW INDICATION: fever COMPARISON: 09/21/2020 FINDINGS: SUPPORT DEVICES: Stable support device positioning. HEART: Stable cardiomediastinal silhouette. LUNGS/PLEURA: Mild central vascular congestion and persistent elevation of the right hemidiaphragm w ith underlying compressive atelectasis. ADDITIONAL FINDINGS: None. IMPRESSION: Pulmonary findings as above. Signer Name: Kervin Graff MD Signed: 10/04/2020 9:37 AM Workstation Name: [id number]
[2020-10-04] MEDS: levETIRAcetam 500 MG/5 ML ORAL LIQD PO SCH ×2 (10:49→22:25)
[2020-10-04] MEDS: MULTIVITAMINS 5 ML ORAL LIQUID PO SCH (10:49)
[2020-10-04] MEDS: VALPROIC ACID 250 MG/5 ML ORAL LIQD FEEDTUBE SCH ×2 (10:51→22:25)
[2020-10-04] MEDS: LANSOPRAZOLE 30 MG SOLUTAB FEEDTUBE SCH ×2 (11:00→22:25)
[2020-10-04 11:05] LABS: Hemoglobin 7.8 gm/dl (11.8-15.2); Mean Corpuscular HGB Conc 34 % (32-34); Mean Corpuscular Volume 87 fl (84-94); Platelet Count 171 K/mm3 (140-440); Red Blood Count 2.65 M/mm3 (3.65-5.03); Red Cell Distribution Width 18.2 % (13.2-15.2)
--- NOTE | 2020-10-04 11:44 | Progress Note ---
Assessment and Plan Assessment and plan: S/p cardiopulmonary arrest (out of hospital) Now poorly responsive with brain damage/anoxic brain injury #Toxic metabolic encephalopathy +/-anoxic injury Persists Now has trach and PEG #Acute hypoxic respiratory failure Continue oxygen supplementation #Nonoliguric acute kidney injury secondary to ATN. Patient status post emergent hemodialysis 09/08. Continue hemodialysis as scheduled #Seizure disorder Keppra 1500 twice daily Depakote 1000 mg twice daily #COVID-19 pneumonia Status post COVID-19 treatment #Fever Remains febrile Repeat blood cultures ordered Chest x-ray, urinalysis #Diabetes mellitus Glargine 25 units daily Lispro sliding scale #Hypertension Hydralazine 3 times daily DVT prophylaxis Full code Disposition-family trying to consider hospice. Patient will need [facility] approval prior to this as per clinical case manager. 09/15/2020. MRI brain for further evaluation. Continue AEDs of valproic acid and Keppra. Continue hemodialysis per nephrology recommendations. Overall prognosis remains guarded and poor. 09/16/2020. ID recommends continue to monitor patient off of antibiotics. Fever most likely of central etiology. Patient with questionable seizures versus myoclonus from anoxic brain injury. Patient unable to undergo MRI due to body habitus. Continue AEDs per neurology recommendations. Inflammatory markers elevated. Patient was recently hospitalized for COVID-19 pneumonia at [facility] to being hospitalized [place]. Patient not a candidate for remdesivir due to hepatic and renal failure. Viral hepatitis panel negative. Overall prognosis extremely poor. 09/17/2020. Fevers have resolved over the past 48 hours. Continue to monitor off antibiotics per ID recommendations. Patient with questionable seizures versus myoclonus from anoxic brain injury. Patient unable to undergo MRI due to body habitus. EEG is nonspecific but given CT of head findings consistent with anoxic encephalopathy, brain injury. Continue AEDs per neurology recommendations. Inflammatory markers elevated. Patient was recently hospitalized for COVID-19 pneumonia at the [facility] prior to being hospitalized [facility]. Patient not a candidate for remdesivir due to hepatic and renal failure. Viral hepatitis panel negative. Patient is s/p emergent HD on Friday (hyperK) and Friday - 09/08. Patient also S/p HD 09/15. Continue hemodialysis per nephrology recommendations. Patient currently on AC/PRVC mode ventilation with rate of 30, tidal volume 475, FiO2 30% and PEEP of 6. As stated in neuro note, overall prognosis is very poor. 09/18/2020. Fevers have resolved over the past 72 hours. Continue to monitor off antibiotics per ID recommendations. Leukocytosis persistent for the past 4 days. Patient with questionable seizures/myoclonus from anoxic brain injury. Patient unable to undergo MRI due to body habitus. EEG is nonspecific but given CT of head findings consistent with anoxic encephalopathy, brain injury. Continue AEDs per neurology recommendations. Inflammatory markers elevated. Patient was recently hospitalized for COVID-19 pneumonia at the [facility] to being [facility] [place]. Patient not a candidate for remdesivir due to hepatic and renal failure. Viral hepatitis panel negative. Patient currently on AC/PRVC mode ventilation with rate of 30, tidal volume 475, FiO2 30% and PEEP of 6. Overall prognosis remains guarded/poor. 09/19/2020 Fevers have resolved over the past 4 days. Continue to monitor off antibiotics per ID recommendations. Leukocytosis persistent for the past 4 days. Patient with questionable seizures/myoclonus from anoxic brain injury. Patient unable to undergo MRI due to body habitus. EEG is nonspecific but given CT of head fin dings consistent with anoxic encephalopathy, brain injury. Continue AEDs per neurology recommendations. Inflammatory markers elevated. Patient was recently hospitalized for COVID-19 pneumonia at the [facility] to being [facility] [place]. Patient not a candidate for remdesivir due to hepatic and renal failure. Viral hepatitis panel negative. Patient currently on AC/PRVC mode ventilation with ra te of 30, tidal volume 475, FiO2 30% and PEEP of 6. Overall prognosis remains guarded/poor. 09/20/2020 -Surgery consulted for PEG and trach, will continue to follow. 09/21/2020; patient will have PEG and trach by Dr. hayes today. Prognosis is poor. Continue with current management. Loss Control Representative is following for vent management. 09/22/2020; patient had PEG and trach yesterday. 09/23/2020; continue PEG Tube Feeding. 09/24/2020; continue PEG tube feeding, patient is on Keppra, lorazepam and p henytoin per neurology recommendation. Patient is on hemodialysis and nephrology is following. Management of mechanical ventilation for CCM. 09/25/2020. Continue PEG tube feeding, patient is on Keppra, lorazepam and phenytoin per neurology recommendation. Patient is on hemodialysis and nephrology is following. Management of mechanical ventilation for CCM. Continue PSV/CPAP /. Continue tracheostomy care, secretion control and airway management. 09/26/2020. Patient has tolerated PSV for approximately 48 hours. I discussed with pulmonary possibility of T-piece today. Continue tracheostomy care, secretion control and airway management. If patient tolerates T-piece trials, patient will be transferred to the floor. Continue AEDs of Keppra and phenytoin as well as Ativan as needed per neurology recommendations. Continue hemodialysis per nephrology. Continue TF with aspiration precautions. 09/27/2020. Patient continues to tolerate PSV /6 at 30% FiO2. T-piece trials per pulmonary. Continue tracheostomy care, secretion control and airway management. Continue AEDs of Keppra and phenytoin as well as Ativan as needed per neurology recommendations. Continue hemodialysis per nephrology. Continue TF with aspiration precautions. 09/28/2020. Patient for T-piece trials per pulmonary. Continue hemodialysis per nephrology. Continue tracheostomy care, secretion control and airway management. Continue AEDs of Keppra and phenytoin as well as Ativan as needed per neurology recommendations. Continue TF with aspiration precautions. 09/29/2020, continue T-piece trials per pulmonary. Continue hemodialysis per nephrology. Continue strict I/O's and labs daily. Monitor for renal recovery. 09/30/2020. Continue T-piece trials per pulmonary recommendations. Continue tracheostomy care, secretion control and airway management. Continue hemodialysis per nephrology. Tight glycemic control. Continue TF with aspiration precautions. 10/01/2020. Patient with T-piece trials and tolerating. Wean to trach collar per pulmonary. Continue tracheostomy care, secretion control and airway management. Continue hemodialysis per nephrology. Tight glycemic control. Continue TF with aspiration precautions. Case management consultation for placement 10/02/20. Continue T-piece trials per pulmonary recommendations. Continue tracheostomy care, secretion control and airway management. Continue hemodialysis per nephrology. Tight glycemic control. Continue TF with aspiration precautions. 10/03/2020. Continue T-piece trials per pulmonology. Continue tracheostomy care, secretion control and airway management. Continue modalities per nephrology. Discharge planning underway. Needs placement to SNF versus hospice. 10/04/2020. Patient remained febrile with temperature 101 F. Ordered blood culture, chest x-ray, urinalysis. Plan to start antibiotics after blood cult ures been obtained. Patient remains hemodynamically stable. Plan to discharge to SNF versus inpatient hospice on the way. The high probability of a clinically significant, sudden or life threatening deterioration of the [cardiac, respiratory and neurological] system(s) required my full and direct attention, intervention and personal management. The aggregate critical care time was [31] minutes. This time is in addition to time spent performing reported procedures but includes the following: [x] Data Review and interpretation [x] Patient assessment and monitoring of vital signs [x] Documentation [x] Medication orders and management History Interval history: 65 y/o male with out of hospital cardiac arrest, acute hypoxic respiratory fail ure and COVID-19 infection. Hospitalist Physical - Physical exam Narrative exam: VITAL SIGNS: Reviewed. GENERAL: Not responsive HEAD: No signs of head trauma. EYES: Closed MOUTH: Oropharynx is normal. NECK: No adenopathy, no JVD. CHEST: Diminished breath sounds with crackles bilaterally CARDIAC: normal S1 and S2, without murmurs, gallops, or rubs. ABDOMEN: Soft, non tender and non distended. No rebound or guarding, and no masses palpated. Bowel Sounds normal. MUSCULOSKELETAL: Bilateral leg edema NEUROLOGIC EXAM: Not responsive SKIN: No obvious lesions - Constitutional Vitals: Temp Pulse Resp BP Pulse Ox 101.1 F H 92 H 36 H 132/69 98 10/04/20 05:09 10/04/20 10:00 10/04/20 05:09 10/04/20 07:49 10/04/20 08:11 General appearance: Present: other (On mechanical ventilation) HEART Score - HEART Score Troponin: Troponin T 0.076 ng/mL (0.00-0.029) H 09/07/20 14:00 Results - Labs CBC & Chem 7: 10/04/20 10:32 10/04/20 01:31 Labs: Laboratory Last Values WBC 8.8 K/mm3 (4.5-11.0) 10/04/20 10:32 RBC 2.65 M/mm3 (3.65-5.03) L 10/04/20 10:32 Hgb 7.8 gm/dl (11.8-15.2) L 10/04/20 10:32 Hct 23.0 % (35.5-45.6) L 10/04/20 10:32 MCV 87 fl (84-94) 10/04/20 10:32 MCH 29 pg (28-32) 10/04/20 10:32 MCHC 34 % (32-34) 10/04/20 10:32 RDW 18.2 % (13.2-15.2) H 10/04/20 10:32 Plt Count 171 K/mm3 (140-440) 10/04/20 10:32 Lymph % (Auto) 27.0 % (13.4-35.0) 10/01/20 04:33 Dane % (Auto) Phone Representative 10/04/20 10:32 Eos % (Auto) 1.4 % (0.0-4.3) 10/01/20 04:33 Baso % (Auto) 0.3 % (0.0-1.8) 10/01/20 04:33 Lymph # (Auto) 1.9 K/mm3 (1.2-5.4) 10/01/20 04:33 Dane # (Auto) 1.2 K/mm3 (0.0-0.8) H 10/01/20 04:33 Eos # (Auto) 0.1 K/mm3 (0.0-0.4) 10/01/20 04:33 Baso # (Auto) 0.0 K/mm3 (0.0-0.1) 10/01/20 04:33 Add Manual Diff Complete 09/30/20 06:57 Total Counted 100 09/30/20 06:57 Seg Neutrophils % 54.7 % (40.0-70.0) 10/01/20 04:33 Seg Neuts % (Manual) 55.0 % (40.0-70.0) 09/30/20 06:57 Band Neutrophils % 8.0 % 09/30/20 06:57 Lymphocytes % (Manual) 23.0 % (13.4-35.0) 09/30/20 06:57 Monocytes % (Manual) 13.0 % (0.0-7.3) H 09/30/20 06:57 Eosinophils % (Manual) 2.0 % (0.0-4.3) 09/07/20 14:00 Basophils % (Manual) 1.0 % (0.0-1.8) 09/30/20 06:57 Metamyelocytes % 2.0 % 09/08/20 Unknown Nucleated RBC % Not Reportable 09/30/20 06:57 Seg Neutrophils # 3.9 K/mm3 (1.8-7.7) 10/01/20 04:33 Seg Neutrophils # Man 4.8 K/mm3 (1.8-7.7) 09/30/20 06:57 Band Neutrophils # 0.7 K/mm3 09/30/20 06:57 Lymphocytes # (Manual) 2.0 K/mm3 (1.2-5.4) 09/30/20 06:57 Abs React Lymphs (Man) 0.0 K/mm3 09/30/20 06:57 Monocytes # (Manual) 1.1 K/mm3 (0.0-0.8) H 09/30/20 06:57 Eosinophils # (Manual) 0.0 K/mm3 (0.0-0.4) 09/30/20 06:57 Basophils # (Manual) 0.1 K/mm3 (0.0-0.1) 09/30/20 06:57 Metamyelocytes # 0.0 K/mm3 09/30/20 06:57 Myelocytes # 0.0 K/mm3 09/30/20 06:57 Promyelocytes # 0.0 K/mm3 09/30/20 06:57 Blast Cells # 0.0 K/mm3 09/30/20 06:57 WBC Morphology Not Reportable 09/30/20 06:57 Hypersegmented Neuts Not Reportable 09/30/20 06:57 Hyposegmented Neuts Not Reportable 09/30/20 06:57 Hypogranular Neuts Not Reportable 09/30/20 06:57 Smudge Cells Not Reportable 09/30/20 06:57 Toxic Granulation Not Reportable 09/30/20 06:57 Toxic Vacuolation Not Reportable 09/30/20 06:57 Dohle Bodies Not Reportable 09/30/20 06:57 Pelger-Huet Anomaly Not Reportable 09/30/20 06:57 Justus Rods Not Reportable 09/30/20 06:57 Platelet Estimate Consistent w auto 09/30/20 06:57 Clumped Platelets Not Reportable 09/30/20 06:57 Plt Clumps, EDTA Not Reportable 09/30/20 06:57 Large Platelets Not Reportable 09/30/20 06:57 Giant Platelets Not Reportable 09/30/20 06:57 Platelet Satelliting Not Reportable 09/30/20 06:57 Plt Morphology Comment Not Reportable 09/30/20 06:57 RBC Morphology Not Reportable 09/30/20 06:57 Dimorphic RBCs Not Reportable 09/30/20 06:57 Polychromasia Not Reportable 09/30/20 06:57 Hypochromasia Not Reportable 09/30/20 06:57 Poikilocytosis Not Reportable 09/30/20 06:57 Anisocytosis Not Reportable 09/30/20 06:57 Microcytosis Not Reportable 09/30/20 06:57 Macrocytosis Not Reportable 09/30/20 06:57 Spherocytes Not Reportable 09/30/20 06:57 Pappenheimer Bodies Not Reportable 09/30/20 06:57 Sickle Cells Not Reportable 09/30/20 06:57 Target Cells Not Reportable 09/30/20 06:57 Tear Drop Cells Not Reportable 09/30/20 06:57 Ovalocytes Rare 09/30/20 06:57 Helmet Cells Not Reportable 09/30/20 06:57 [place] Bodies Not Reportable 09/30/20 06:57 [place] Rings Not Reportable 09/30/20 06:57 [place] Cells Not Reportable 09/30/20 06:57 Bite Cells Not Reportable 09/30/20 06:57 Crenated Cell Not Reportable 09/30/20 06:57 Elliptocytes Not Reportable 09/30/20 06:57 Acanthocytes (Spur) Not Reportable 09/30/20 06:57 Rouleaux Not Reportable 09/30/20 06:57 Hemoglobin C Crystals Not Reportable 09/30/20 06:57 Schistocytes Not Reportable 09/30/20 06:57 Malaria parasites Not Reportable 09/30/20 06:57 [place] Bodies Not Reportable 09/30/20 06:57 Hem Pathologist Commnt No 09/30/20 06:57 PT 16.1 Sec. (12.2-14.9) H 09/12/20 04:00 INR 1.31 (0.87-1.13) H 09/12/20 04:00 APTT 32.4 Sec. (24.2-36.6) 09/09/20 10:00 D-Dimer 8315.85 ng/mlDDU (0-234) H 09/07/20 14:00 ABG pH 7.468 (7.320-7.450) H 10/02/20 10:16 POC ABG pCO2 37.1 mmHg (32.0-48.0) 10/02/20 10:16 ABG pCO2 33.4 mm Hg 09/11/20 05:40 POC ABG pO2 72.9 mmHg (83-108) L 10/02/20 10:16 ABG pO2 112.1 mm Hg (80.0-90.0) H 09/11/20 05:40 POC ABG HCO3 26.3 10/02/20 10:16 ABG HCO3 28.1 mmol/L (20.0-26.0) H 09/11/20 05:40 ABG O2 Saturation 98.4 % (95.0-99.0) 09/11/20 05:40 ABG O2 Content 11.6 (0.0-44) 09/11/20 05:40 POC ABG Base Excess 2.6 10/02/20 10:16 ABG Base Excess 5.4 mmol/L (-2.0-3.0) H 09/11/20 05:40 ABG Hemoglobin 10.1 (12.0-17.5) L 10/02/20 10:16 ABG Oxyhemoglobin 93.1 (94-98) L 10/02/20 10:16 ABG Carboxyhemoglobin 1.2 % (0.0-5.0) 09/11/20 05:40 ABG Methemoglobin 0.3 (0.0-1.5) 10/02/20 10:16 ABG Sodium 138.5 mmol/L (136.0-145.0) 10/02/20 10:16 ABG Potassium 3.9 mmol/L (3.40-4.50) 10/02/20 10:16 ABG Chloride 108.0 mmol/L (98-107) H 10/02/20 10:16 ABG Glucose 289 mg/dL (65-95) H 10/02/20 10:16 Oxyhemoglobin 96.8 % (95.0-99.0) 09/11/20 05:40 Carboxyhemoglobin 0.8 (0.5-1.5) 10/02/20 10:16 FiO2 35 10/02/20 10:16 Sodium 136 mmol/L (137-145) L 10/04/20 01:31 Potassium 4.1 mmol/L (3.6-5.0) 10/04/20 01:31 Chloride 99.0 mmol/L (98-107) 10/04/20 01:31 Carbon Dioxide 29 mmol/L (22-30) 10/04/20 01:31 Anion Gap 12 mmol/L 10/04/20 01:31 BUN 53 mg/dL (9-20) H 10/04/20 01:31 Creatinine 4.6 mg/dL (0.8-1.3) H 10/04/20 01:31 Estimated GFR 16 ml/min 10/04/20 01:31 BUN/Creatinine Ratio 12 % 10/04/20 01:31 Glucose 184 mg/dL (75-100) H 10/04/20 01:31 POC Glucose 200 mg/dL (70-105) H 10/04/20 06:31 Lactic Acid 2.90 mmol/L (0.7-2.0) H* 09/17/20 13:52 Calcium 9.7 mg/dL (8.4-10.2) 10/04/20 01:31 Phosphorus 8.00 mg/dL (2.5-4.5) H 09/08/20 12:02 Magnesium 1.80 mg/dL (1.7-2.3) 09/08/20 12:02 Ferritin > 2000.0 ng/mL (30.0-300.0) H 09/07/20 14:00 Total Bilirubin 0.50 mg/dL (0.1-1.2) 09/25/20 05:18 Direct Bilirubin 0.5 mg/dL (0-0.2) H 09/08/20 05:00 Indirect Bilirubin 0.5 mg/dL 09/08/20 05:00 AST 55 units/L (5-40) H 09/25/20 05:18 ALT 74 units/L (7-56) H 09/25/20 05:18 Alkaline Phosphatase 81 units/L (35-129) 09/25/20 05:18 Ammonia 50.0 umol/L (25-60) 09/07/20 14:00 Lactate Dehydrogenase 882 units/L (91-180) H 09/07/20 14:00 Total Creatine Kinase 477 units/L (55-170) H 09/07/20 14:00 Troponin T 0.076 ng/mL (0.00-0.029) H 09/07/20 14:00 C-Reactive Protein 1.10 mg/dL (0.00-1.30) 09/07/20 14:00 Total Protein 7.0 g/dL (6.3-8.2) 09/25/20 05:18 Albumin 2.6 g/dL (3.9-5) L 09/25/20 05:18 Albumin/Globulin Ratio 0.6 % 09/25/20 05:18 Triglycerides 220 mg/dL (2-149) H 09/12/20 Unknown Procalcitonin 1.52 ng/mL (<0.15) 09/17/20 13:02 TSH 2.290 mlU/mL (0.270-4.200) 09/07/20 14:00 Arterial Blood Glucose 289 mg/dL (65-95) H 10/02/20 10:16 Arterial Blood Ionized Calcium 5.2 mg/dL (4.6-5.3) 10/02/20 10:16 Urine Color Straw (Yellow) 09/07/20 13:08 Urine Turbidity Slightly-cloudy (Clear) 09/07/20 13:08 Urine pH 8.0 (5.0-7.0) H 09/07/20 13:08 Ur Specific [place] 1.006 (1.003-1.030) 09/07/20 13:08 Urine Protein 100 mg/dl mg/dL (Negative) 09/07/20 13:08 Urine Glucose (UA) Neg mg/dL (Negative) 09/07/20 13:08 Urine Ketones Neg mg/dL (Negative) 09/07/20 13:08 Urine Blood Neg (Negative) 09/07/20 13:08 Urine Nitrite Neg (Negative) 09/07/20 13:08 Urine Bilirubin Neg (Negative) 09/07/20 13:08 Urine Urobilinogen < 2.0 mg/dL (<2.0) 09/07/20 13:08 Ur Leukocyte Esterase Neg (Negative) 09/07/20 13:08 Urine WBC (Auto) 4.0 /HPF (0.0-6.0) 09/07/20 13:08 Urine RBC (Auto) 18.0 /HPF (0.0-6.0) 09/07/20 13:08 U Epithel Cells (Auto) 1.0 /HPF (0-13.0) 09/07/20 13:08 Urine Mucus Few /HPF 09/07/20 13:08 Urine Sperm 3+ /HPF (VICE PRESIDENT REGULATORY) 09/07/20 13:08 Urine Creatinine 182.4 mg/dL (0.1-20.0) H 09/08/20 Unknown Urine Sodium 40 mmol/L 09/08/20 Unknown Salicylates < 0.3 mg/dL (2.8-20.0) L 09/07/20 14:00 Acetaminophen 5.0 ug/mL (10.0-30.0) L 09/07/20 14:00 Valproic Acid 58.9 ug/mL (50-100) 10/04/20 04:55 Plasma/Serum Alcohol < 0.01 % (0-0.07) 09/07/20 14:00 Coronavirus (PCR) Negative (Negative) 10/03/20 10:01 Hepatitis A IgM Ab Non-reactive (NonReactive) 09/07/20 14:00 Hep Bs Antigen Non-reactive (Negative) 09/07/20 14:00 Hep B Core IgM Ab Non-reactive (NonReactive) 09/07/20 14:00 Hepatitis C Antibody Non-reactive (NonReactive) 09/07/20 14:00 HIV 1&2 Antibody Rapid Non react (Non React) 09/07/20 14:34 HIV P24 Antigen Non react (Non React) 09/07/20 14:34 Blood Type O POSITIVE 09/09/20 10:00 Antibody Screen Negative 09/07/20 14:00 Mae/IV: Voiding Method Condom Catheter IV Catheter Type [Right Triple Lumen Cath Femoral] IV Catheter Type [Left Peripheral IV Antecubital] IV Catheter Type [Left Hand] Peripheral IV IV Catheter Type [Right Peripheral IV Antecubital] Active Medications - Current Medications Current Medications: Generic Name Dose Route Start Last Admin Trade Name Freq PRN Reason Stop Dose Admin Acetaminophen 650 mg 10/02/20 09:00 10/04/20 05:10 Acetaminophen 325 Mg/10.15 Ml Oral Liqd Unit Dose PO 650 mg Q4HR PRN Administration Non Cardiac Pain or Temp>100.5 Lipase/Protease/Amylase 1 each 09/09/20 09:40 Lipase 10,500/Protease 25,000/Amylase 43,750 (Units) Dr Armenta FEEDTUBE PRN PRN For Clogged Feeding Tube Hydralazine HCl 50 mg 09/23/20 14:00 10/04/20 05:55 Hydralazine 25 Mg Tab PO 50 mg Q8HR TAYLOR Administration Sodium Chloride 100 mls @ 999 mls/hr 09/09/20 13:36 Nacl 0.9% IV JAYJAY PRN Hypotension Insulin Glargine 25 units 10/03/20 10:00 10/03/20 09:18 Insulin Glargine 100 Units/Ml SUB-Q 25 units DAILY TAYLOR Administration Insulin Human Lispro 0 unit 09/12/20 12:00 10/04/20 06:43 Insulin Lispro 100 Unit/Ml SUB-Q 4 unit Q6HR TAYLOR Administration Protocol Lansoprazole 30 mg 09/11/20 11:00 10/04/20 11:00 Lansoprazole 30 Mg Solutab FEEDTUBE 30 mg BID TAYLOR Administration Levetiracetam 1,500 mg 09/28/20 10:00 10/04/20 10:49 Levetiracetam 500 Mg/5 Ml Oral Liqd PO 1,500 mg BID TAYLOR Administration Multivitamins 5 ml 09/09/20 12:00 10/04/20 10:49 Multivitamins 5 Ml Oral Liquid PO 5 ml QDAY TAYLOR Administration Ondansetron HCl 4 mg 09/07/20 17:55 09/19/20 04:00 Ondansetron 4 Mg/2 Ml Inj IV 4 mg Q8H PRN Administration Nausea And Vomiting Senna/Docusate Sodium 2 tab 09/20/20 11:00 Sennosides/Docusate Sodium 8.6/50 Mg Tab PO BID PRN Laxative Effect Simple Syrup 15 ml 09/09/20 09:40 09/17/20 17:43 Simple Syrup 15 Ml FEEDTUBE 15 ml PRN PRN Administration Hypoglycemia Simple Syrup 30 ml 09/09/20 09:40 Simple Syrup 15 Ml FEEDTUBE PRN PRN Hypoglycemia Sodium Bicarbonate 325 mg 09/09/20 09:40 Sodium Bicarbonate 325 Mg Tab FEEDTUBE PRN PRN For Clogged Feeding Tube Sodium Chloride 10 ml 09/07/20 22:00 10/04/20 11:00 Sodium Chloride 0.9% 10 Ml Flush Syringe IV 10 ml BID TAYLOR Administration Sodium Chloride 10 ml 09/07/20 17:55 Sodium Chloride 0.9% 10 Ml Flush Syringe IV PRN PRN LINE FLUSH Valproic Acid 1,000 mg 09/28/20 10:00 10/04/20 10:51 Valproic Acid 250 Mg/5 Ml Oral Liqd FEEDTUBE 1,000 mg BID TAYLOR Administration Nutrition/Malnutrition Assess - Dietary Evaluation Nutrition/Malnutrition Findings: Nutrition Notes Start: 09/08/20 12:01 Freq: Status: Active Protocol: Document 10/03/20 09:29 CW (Rec: 10/03/20 09:46 CW [id number]) Nutrition Notes Initial or Follow up Reassessment Current Diagnosis Acute Kidney Injury, Respiratory Failure Other Pertinent Diagnosis on HD, cardiac arrest, COVID ( +), metabolic encephalopathy, pneu Current Diet Nepro 1.8 at 45 mL/hr (goal rate) Labs/Tests BUN 50 Cr 5 BG 324 Pertinent Medications Lantus 35 units Humalog 8 units Height 6 ft Weight 145.18 kg [place] Body Weight (kg) 80.90 BMI 43.4 Weight change and time frame Weight stable at this time Weight Status Morbidly Obese Subjective/Other Information F/U for TF tolerance. Pt is tolerating TF at goal rate (45 ml/hr).Last BM reported on . RN stated large watery BM this morning. Will monitor for more loose stools to determine of TF change is warranted. Other than loose stool x1 pt is tolerating TF. Pt no longer hypernatremic, will decrease water flush down to 120 ml q4h to provide fluid needs. Protein not meeting 75% for kidney protection. Pt may be discharged soon. Order for bolus feed written in notes if needed;otherwise continue continous TF. Percent of energy/protein needs met: 100%/64% Burn Absent Trauma Absent GI Symptoms None Difficulty In Swallowing Food Allergy No Skin Integrity/Comment pressure ulcer to lips Current % PO Negligible Minimum of two criteria No Fluid Accumulation Mild (non-severe) #3 Nutrition Diagnosis Increased nutrient needs ( specify in comment below) Comments: protein Etiology wound healing As Evidenced by Signs and Symptoms pressure ulcer to lips #2 Nutrition Diagnosis Increased nutrient needs ( specify in comment below) As Evidenced by Signs and Symptoms PT no longer in critical care; Protein needs back down to >1 .2 kcal/kgAdjBW Diagnosis Progress(for reassessment Improved documentation) #1 Nutrition Diagnosis Inadequate oral intake Diagnosis Progress(for reassessment Continues documentation) Is patient on ventilator? No Is Patient Ambulatory and/or Out of Bed No REE-([facility]-confined to bed) 2740.164 Kcal/Kg value to use for calculation 13 Approximate Energy Requirements Using 1887 kcal/Kg Calculation Used for Recommendations Kcal/kg Additional Notes PRO needs: >136g (>1.2g/kg AdjBW 113.04kg) Fluid needs are 1000-1500ml Nutrition Intervention Change Diet Order: TF Nutrition Support: Nepro at 45ml/hr 120ml q4h once resolved Kcal 1,944 Protein (gm) 87 Fluid (mL) 785 Goal #1 Meet kcal and protein needs as best as possible via TF Anticipated Discharge Needs: Continuous Nepro TF at 45ml/h Follow-Up By: 10/06/20 Additional Comments F/U for stable TF If needed, bolus feed order to be found in notes.
[2020-10-04 11:53] LABS: Total Cells Counted 100
[2020-10-04 11:54] LABS: Anisocytosis 1+; Platelet Estimate Consistent w Auto
[2020-10-04] MEDS: INSULIN GLARGINE 100 UNITS/ML SUB-Q SCH (12:13)
--- NOTE | 2020-10-04 12:41 | Progress Note ---
Assessment and Plan 65 y/o male with out of hospital cardiac arrest now sedated on ativan for possible seizures. 10/04/20: Increase from 5 to 8 in flow. No documentation as to why. Will continue to monitor. If flow continues to increase, suggest repeat CXR. 10/03/20: Continue trach care. Stable pulm status. Will see PRN. 10/02/20: Will transfer out to floor. CM working on placement. 09/29/20: Please continue daily T-piece trials as tolerated over the weekend. Goals is to do 24 hours of T-piece. Once done stable for transfer out of the unit. Hold BP meds for now. MOnitor for fever cure or changes clinically other than change in blood pressure. Increased BID lantus to 20. May need more but can reassess tomorrow. My partner is covering this weekend. 09/28/20: T-piece again today. Will place official order to let patient stay on T-piece and to call if changes occur. HD MWF per renal. Poor prognosis for cognitive recovery. 09/27/20: T-piece trial again today. Will attempt to go 24 hours. Still needs HD per renal. This will be a barrier to discharge. CM knows and will discuss with administration. 09/26/20: Will do T-piece today. If tolerates the next 24 hours will move out of ICU. : PSV for the next 24 hours if tolerates. Restart feeds today at 10. Continue reglan. If tomorrow, same issues. Will change feeds, obtain GI consult. Continue antiepileptic therapy. 09/24/20: Continue Daily PSV, maybe ready for 24 hour trial. Antiepleptic therapy. Hold feeds today, suggest GI consult. Will discuss with Dietary on round tomorrow. 09/23/20: Daily PSV trials multiple times a day if needed. Antiepileptic therapy. Resume tube feeds today. 09/22/20: PSV trial today as tolerated and every day from this day forward. NO sedation. Continue antiepileptic therapy. HD per renal. Still having issues with feeds. Will contact to see if he has any food allergies. Prognosis still remains very poor. WIll start some promotility agents as well. 09/21/20: Trach and peg today. Continue with vent weaning. Hopeful we can wean him off the vent once trached. [facility] Prognosis remains very poor for recovery of functional state. 09/20/20: Placed consult to surgery now that COVID is negative. However, patient is morbidly obese and his surgery will likely be a complicated one especially with peg placement. Await surgery eval and recs. HD per renal. Continue daily PSV trials, mental status precludes extubation traditionally but maybe able to wean off vent with stable airway such as trach. [facility] has denied transfer and placement requests at this time based on CM notes. Prognosis is very poor, but after speaking with neurology and neurosurgery, patient wishes to continue aggressive measures. 09/19/20: Ordered repeat COVID as surgery will not do trach and peg until negative status. Continue supportive measures. 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 09/18/20: Unable to fit in MRI. Repeat CT showed improvement in edema but no clinical response is seen with this. Will continue Antiepileptic therapy. If wishes to proceed, will need trach and peg. Not sure if he would be candidate for PEG given his size but will ask surgery. Will need repeat COVID test prior to surgery. 09/15/20: Order MRI brain without contrast. Per surgery this will help to add more in regards to prognosis. Continue Valproic Acid and Keppra for seizure therapy. HD going now per renal. Overall prognosis remains guarded to poor. Please reach out to over the weekend to update her as I am not rounding this weekend, ,my partner will be covering. 09/14/20: Will load with valproic acid and then start to wean Diprovan. Spoke with today, very tearful on the phone. Explained to that Neurosurgery would come and eval tonight but not a candidate for the other therapies she asked about since his edema is related to anoxic injury. Very very poor prognosis. 09/13/20: Per current neuro available, the neurologist from yesterday will call today. EEG is nonspecific but given CT of head findings consistent with anoxic encephalopathy, brain injury. As stated in neuro note, overall prognosis is very poor. Will continue to wean down diprovan to see if patient's seizures have been controlled with current Keppra dosing. Will call once she has spoken to neuro to get her thoughts on the next steps. (trach and peg, vs hospice as well as code status). Very very poor prognosis. 09/12/20: Long discussion with this am. Given recent head CT results, prognosis for full functional recovery is very POOR and neurology agrees. They will see in consult today. I have spoken to about AND and she is going to discuss with the family. The neurologist has stated they will reach out to the today. I am going to attempt to wean the ativan off and then start to wean the diprovan as long as no seizure activity is seen. Patient is now bradycardic, likely secondary to neuro state. I hope that he is not about to herniate. Patient is also like in Neurogenic DI given large urine out put vol ume. Very very poor prognosis. Continue supportive measures. 09/11/20: Will increase Keppra to 1500 BID given patient size. Continue Diprovan drip. Getting EEG today. HD per renal. Needs neurology consult however if patient is in status, needs to be transferred to an institution that can provide continuous EEG monitoring. Overll prognosis is very guarded to poor. Have not spoken to yet today. 09/10/20: Loaded with keppra and will start on Keppra BID. Needs EEG on therapy as well as OFF. If patient is in status, needs transfer to a location with continuous EEG capabilities. FiO2 has been weaned back down and is now at 60%, sats in the high 90's. HD per renal. Coags improving. Overall prognosis is guarded to poor. Spoke with on phone yesterday. Consult neurology tomorrow as not available on the weekend. Suggest checking for antibodies as he may be a candidate for convalsescent plasma. Per the , he was diagnosed with COVID on and spent 6 days inpatient [facility] the [facility]. Remains positive now with multisystem organ failure. Explained to that outcome may not be good but need more time to assess. 09/09/20: EEG ordered on yesterday but not done. If done not read. Continue diprovan for now until EEG can be done or interpreted. State Coags but given his oozing from his vascath, will give Vitamin K and FFP. Patient is covid positive so agree with steroids. Not a candidate for remdesivir. Need to check for antibodies, may be a candidate for convalescent plasma. HD per renal. Given improvement in pH will stop bicarb drip. Feed patient. 1. Stop sedation 2. EEG 3. Needs neuro consult. 4. Art line placement 5. Stat repeat of labs, if renal function is truly that bad, will need renal consult. 6. Follow up COVID testing 7. Likely needs echo 8. Will place on bicarb drip. CCT 31 minutes. Subjective Date of service: 10/04/20 Principal diagnosis: Abnormal LFTs, s/p cardiac arrest, acute kidney injury with ATN Interval history: Patient increased from 5 liters to 8 overnight. No documentation as to why in RT notes. Sats still at 99. FiO2 unchanged Objective Vital Signs - 12hr 10/04/20 10/04/20 10/04/20 03:07 03:08 04:15 Temperature 101.1 F H Pulse Rate 87 Respiratory 36 H Rate Blood Pressure 123/61 Blood Pressure [Left] O2 Sat by Pulse 97 97 Oximetry O2 Sat by Pulse 96 Oximetry [ Assessment] 10/04/20 10/04/20 10/04/20 05:09 05:55 07:49 Temperature 101.1 F H Pulse Rate 87 91 H 92 H Respiratory 36 H Rate Blood Pressure 123/87 132/69 Blood Pressure 123/81 [Left] O2 Sat by Pulse 97 98 Oximetry O2 Sat by Pulse Oximetry [ Assessment] 10/04/20 10/04/20 10/04/20 08:00 08:11 10:00 Temperature Pulse Rate 92 H Respiratory Rate Blood Pressure Blood Pressure [Left] O2 Sat by Pulse 99 Oximetry O2 Sat by Pulse 98 Oximetry [ Assessment] 10/04/20 12:15 Temperature 100.1 F H Pulse Rate 86 Respiratory Rate Blood Pressure 113/59 Blood Pressure [Left] O2 Sat by Pulse 91 Oximetry O2 Sat by Pulse Oximetry [ Assessment] Constitutional: comatose, other (morbidly obese t piece sp trach) Eyes: non-icteric ENT: other (tpiece) Neck: supple Effort: normal Ascultation: Bilateral: diminished breath sounds Percussion: Bilateral: not dull Cardiovascular: other (bradycardic) Gastrointestinal: soft Neurologic: other CBC and BMP: 10/04/20 10:32 10/04/20 01:31 ABG, PT/INR, D-dimer: ABG ABG pH 7.468 (7.320-7.450) H 10/02/20 10:16 POC ABG pCO2 37.1 mmHg (32.0-48.0) 10/02/20 10:16 ABG pCO2 33.4 mm Hg 09/11/20 05:40 POC ABG pO2 72.9 mmHg (83-108) L 10/02/20 10:16 ABG pO2 112.1 mm Hg (80.0-90.0) H 09/11/20 05:40 POC ABG HCO3 26.3 10/02/20 10:16 ABG O2 Saturation 98.4 % (95.0-99.0) 09/11/20 05:40 PT/INR, D-dimer PT 16.1 Sec. (12.2-14.9) H 09/12/20 04:00 INR 1.31 (0.87-1.13) H 09/12/20 04:00 D-Dimer 8315.85 ng/mlDDU (0-234) H 09/07/20 14:00 Abnormal lab findings: Abnormal Labs 09/07/20 09/07/20 09/07/20 13:08 14:00 14:00 WBC 15.7 H RBC Hgb 10.2 L Hct 32.5 L MCHC 31 L RDW 17.5 H Lymph % (Auto) [place] % (Auto) Lymph # (Auto) [place] # (Auto) Seg Neutrophils % Seg Neuts % (Manual) 72.0 H Lymphocytes % (Manual) Monocytes % (Manual) 8.0 H Nucleated RBC % Seg Neutrophils # Seg Neutrophils # Man 11.3 H Lymphocytes # (Manual) Monocytes # (Manual) 1.3 H PT INR D-Dimer 8315.85 H ABG pH POC ABG pCO2 POC ABG pO2 ABG pO2 ABG HCO3 ABG Base Excess ABG Hemoglobin ABG Oxyhemoglobin ABG Sodium ABG Potassium ABG Chloride ABG Glucose Carboxyhemoglobin Sodium Potassium Chloride Carbon Dioxide BUN Creatinine Glucose POC Glucose Lactic Acid Calcium Phosphorus Ferritin Total Bilirubin Direct Bilirubin AST ALT Lactate Dehydrogenase Total Creatine Kinase Troponin T Total Protein Albumin Triglycerides Arterial Blood Glucose Arterial Blood Ionized Calcium Urine pH 8.0 H Urine Creatinine Salicylates Acetaminophen Coronavirus (PCR) 09/07/20 09/07/20 09/07/20 14:00 14:00 14:00 WBC RBC Hgb Hct MCHC RDW Lymph % (Auto) [place] % (Auto) Lymph # (Auto) [place] # (Auto) Seg Neutrophils % Seg Neuts % (Manual) Lymphocytes % (Manual) Monocytes % (Manual) Nucleated RBC % Seg Neutrophils # Seg Neutrophils # Man Lymphocytes # (Manual) Monocytes # (Manual) PT INR D-Dimer ABG pH POC ABG pCO2 POC ABG pO2 ABG pO2 ABG HCO3 ABG Base Excess ABG Hemoglobin ABG Oxyhemoglobin ABG Sodium ABG Potassium ABG Chloride ABG Glucose Carboxyhemoglobin Sodium Potassium Chloride Carbon Dioxide BUN Creatinine Glucose POC Glucose Lactic Acid 4.30 H* Calcium Phosphorus Ferritin > 2000.0 H Total Bilirubin Direct Bilirubin AST ALT Lactate Dehydrogenase 882 H Total Creatine Kinase 477 H Troponin T 0.076 H Total Protein Albumin Triglycerides Arterial Blood Glucose Arterial Blood Ionized Calcium Urine pH Urine Creatinine Salicylates Acetaminophen Coronavirus (PCR) 09/07/20 09/07/20 09/07/20 14:00 14:00 14:00 WBC RBC Hgb Hct MCHC RDW Lymph % (Auto) [place] % (Auto) Lymph # (Auto) [place] # (Auto) Seg Neutrophils % Seg Neuts % (Manual) Lymphocytes % (Manual) Monocytes % (Manual) Nucleated RBC % Seg Neutrophils # Seg Neutrophils # Man Lymphocytes # (Manual) Monocytes # (Manual) PT INR D-Dimer ABG pH POC ABG pCO2 POC ABG pO2 ABG pO2 ABG HCO3 ABG Base Excess ABG Hemoglobin ABG Oxyhemoglobin ABG Sodium ABG Potassium ABG Chloride ABG Glucose Carboxyhemoglobin Sodium Potassium Chloride Carbon Dioxide BUN Creatinine 1.8 H Glucose POC Glucose Lactic Acid Calcium Phosphorus Ferritin Total Bilirubin Direct Bilirubin AST 310 H ALT 339 H Lactate Dehydrogenase Total Creatine Kinase Troponin T Total Protein Albumin 3.6 L Triglycerides Arterial Blood Glucose Arterial Blood Ionized Calcium Urine pH Urine Creatinine Salicylates < 0.3 L Acetaminophen 5.0 L Coronavirus (PCR) 09/07/20 09/08/20 09/08/20 14:26 04:00 04:17 WBC RBC Hgb Hct MCHC RDW Lymph % (Auto) [place] % (Auto) Lymph # (Auto) [place] # (Auto) Seg Neutrophils % Seg Neuts % (Manual) Lymphocytes % (Manual) Monocytes % (Manual) Nucleated RBC % Seg Neutrophils # Seg Neutrophils # Man Lymphocytes # (Manual) Monocytes # (Manual) PT INR D-Dimer ABG pH 7.037 L 7.095 L POC ABG pCO2 92.4 H 68.0 H POC ABG pO2 130.8 H 43.5 L ABG pO2 ABG HCO3 ABG Base Excess ABG Hemoglobin 11.3 L 10.6 L ABG Oxyhemoglobin 70.8 L ABG Sodium ABG Potassium 7.0 H ABG Chloride 108.0 H ABG Glucose Carboxyhemoglobin 0.3 L Sodium Potassium 8.4 H* D Chloride Carbon Dioxide 17 L D BUN 38 H Creatinine 3.9 H D Glucose POC Glucose Lactic Acid Calcium 7.7 L D Phosphorus Ferritin Total Bilirubin Direct Bilirubin AST ALT Lactate Dehydrogenase Total Creatine Kinase Troponin T Total Protein Albumin Triglycerides Arterial Blood Glucose Arterial Blood Ionized Calcium 4.5 L Urine pH Urine Creatinine Salicylates Acetaminophen Coronavirus (PCR) 09/08/20 09/08/20 09/08/20 05:00 05:25 12:02 WBC RBC Hgb Hct MCHC RDW Lymph % (Auto) [place] % (Auto) Lymph # (Auto) [place] # (Auto) Seg Neutrophils % Seg Neuts % (Manual) Lymphocytes % (Manual) Monocytes % (Manual) Nucleated RBC % Seg Neutrophils # Seg Neutrophils # Man Lymphocytes # (Manual) Monocytes # (Manual) PT INR D-Dimer ABG pH 7.088 L POC ABG pCO2 69.1 H POC ABG pO2 35.2 L ABG pO2 ABG HCO3 ABG Base Excess ABG Hemoglobin 10.9 L ABG Oxyhemoglobin 57.1 L ABG Sodium ABG Potassium 7.0 H ABG Chloride 108.0 H ABG Glucose Carboxyhemoglobin 0.4 L Sodium Potassium 8.1 H* Chloride Carbon Dioxide 17 L BUN 38 H Creatinine 3.7 H Glucose POC Glucose Lactic Acid Calcium 8.0 L Phosphorus 8.00 H Ferritin Total Bilirubin Direct Bilirubin 0.5 H AST 3696 H ALT 3331 H Lactate Dehydrogenase Total Creatine Kinase Troponin T Total Protein Albumin 3.5 L Triglycerides Arterial Blood Glucose Arterial Blood Ionized Calcium 4.4 L Urine pH Urine Creatinine Salicylates Acetaminophen Coronavirus (PCR) 09/08/20 09/08/20 09/08/20 16:31 22:36 Unknown WBC RBC Hgb Hct MCHC RDW Lymph % (Auto) [place] % (Auto) Lymph # (Auto) [place] # (Auto) Seg Neutrophils % Seg Neuts % (Manual) Lymphocytes % (Manual) Monocytes % (Manual) Nucleated RBC % Seg Neutrophils # Seg Neutrophils # Man Lymphocytes # (Manual) Monocytes # (Manual) PT INR D-Dimer ABG pH POC ABG pCO2 POC ABG pO2 ABG pO2 ABG HCO3 ABG Base Excess ABG Hemoglobin ABG Oxyhemoglobin ABG Sodium ABG Potassium ABG Chloride ABG Glucose Carboxyhemoglobin Sodium Potassium 5.3 H D Chloride Carbon Dioxide BUN Creatinine Glucose POC Glucose 158 H Lactic Acid Calcium Phosphorus Ferritin Total Bilirubin Direct Bilirubin AST ALT Lactate Dehydrogenase Total Creatine Kinase Troponin T Total Protein Albumin Triglycerides Arterial Blood Glucose Arterial Blood Ionized Calcium Urine pH Urine Creatinine Salicylates Acetaminophen Coronavirus (PCR) Positive A 09/08/20 09/08/20 09/08/20 Unknown Unknown Unknown WBC 18.4 H RBC Hgb 10.1 L Hct 32.0 L MCHC RDW 18.2 H Lymph % (Auto) [place] % (Auto) Lymph # (Auto) [place] # (Auto) Seg Neutrophils % Seg Neuts % (Manual) 81.0 H Lymphocytes % (Manual) 2.0 L Monocytes % (Manual) Nucleated RBC % 1.0 H Seg Neutrophils # Seg Neutrophils # Man 14.9 H Lymphocytes # (Manual) 0.4 L Monocytes # (Manual) 1.1 H PT 21.2 H INR 1.83 H D-Dimer ABG pH POC ABG pCO2 POC ABG pO2 ABG pO2 ABG HCO3 ABG Base Excess ABG Hemoglobin ABG Oxyhemoglobin ABG Sodium ABG Potassium ABG Chloride ABG Glucose Carboxyhemoglobin Sodium Potassium Chloride Carbon Dioxide BUN Creatinine Glucose POC Glucose Lactic Acid Calcium Phosphorus Ferritin Total Bilirubin Direct Bilirubin AST ALT Lactate Dehydrogenase Total Creatine Kinase Troponin T Total Protein Albumin Triglycerides Arterial Blood Glucose Arterial Blood Ionized Calcium Urine pH Urine Creatinine 182.4 H Salicylates Acetaminophen Coronavirus (PCR) 09/09/20 09/09/20 09/09/20 03:14 04:20 04:20 WBC 16.3 H RBC 3.12 L Hgb 8.6 L Hct 26.8 L MCHC RDW 18.2 H Lymph % (Auto) 6.3 L [place] % (Auto) 8.8 H Lymph # (Auto) 1.0 L [place] # (Auto) 1.4 H Seg Neutrophils % 84.5 H Seg Neuts % (Manual) Lymphocytes % (Manual) Monocytes % (Manual) Nucleated RBC % Seg Neutrophils # 13.7 H Seg Neutrophils # Man Lymphocytes # (Manual) Monocytes # (Manual) PT INR D-Dimer ABG pH POC ABG pCO2 POC ABG pO2 148.5 H ABG pO2 ABG HCO3 ABG Base Excess ABG Hemoglobin 9.4 L ABG Oxyhemoglobin 98.8 H ABG Sodium 134.8 L ABG Potassium 5.0 H ABG Chloride ABG Glucose 222 H Carboxyhemoglobin 0.1 L Sodium Potassium 5.2 H Chloride Carbon Dioxide BUN 47 H Creatinine 4.3 H Glucose 211 H POC Glucose Lactic Acid Calcium 7.4 L Phosphorus Ferritin Total Bilirubin Direct [place] 55984 H ALT 6206 H Lactate Dehydrogenase Total Creatine Kinase Troponin T Total Protein 5.6 L Albumin 3.0 L Triglycerides Arterial Blood Glucose 222 H Arterial Blood Ionized Calcium 3.8 L Urine pH Urine Creatinine Salicylates Acetaminophen Coronavirus (PCR) 09/09/20 09/09/20 09/09/20 10:00 12:23 18:22 WBC RBC Hgb Hct MCHC RDW Lymph % (Auto) [place] % (Auto) Lymph # (Auto) [place] # (Auto) Seg Neutrophils % Seg Neuts % (Manual) Lymphocytes % (Manual) Monocytes % (Manual) Nucleated RBC % Seg Neutrophils # Seg Neutrophils # Man Lymphocytes # (Manual) Monocytes # (Manual) PT 21.7 H INR 1.90 H D-Dimer ABG pH POC ABG pCO2 POC ABG pO2 ABG pO2 ABG HCO3 ABG Base Excess ABG Hemoglobin ABG Oxyhemoglobin ABG Sodium ABG Potassium ABG Chloride ABG Glucose Carboxyhemoglobin Sodium Potassium Chloride Carbon Dioxide BUN Creatinine Glucose POC Glucose 216 H 211 H Lactic Acid Calcium Phosphorus Ferritin Total Bilirubin Direct Bilirubin AST ALT Lactate Dehydrogenase Total Creatine Kinase Troponin T Total Protein Albumin Triglycerides Arterial Blood Glucose Arterial Blood Ionized Calcium Urine pH Urine Creatinine Salicylates Acetaminophen Coronavirus (PCR) 09/10/20 09/10/20 09/10/20 04:00 04:05 04:05 WBC 15.0 H RBC 3.06 L Hgb 8.6 L Hct 25.8 L MCHC RDW 18.0 H Lymph % (Auto) [place] % (Auto) Lymph # (Auto) [place] # (Auto) Seg Neutrophils % Seg Neuts % (Manual) 86.0 H Lymphocytes % (Manual) 6.0 L Monocytes % (Manual) 8.0 H Nucleated RBC % Seg Neutrophils # Seg Neutrophils # Man 12.9 H Lymphocytes # (Manual) 0.9 L Monocytes # (Manual) 1.2 H PT 18.4 H INR 1.54 H D-Dimer ABG pH POC ABG pCO2 POC ABG pO2 ABG pO2 ABG HCO3 ABG Base Excess ABG Hemoglobin ABG Oxyhemoglobin ABG Sodium ABG Potassium ABG Chloride ABG Glucose Carboxyhemoglobin Sodium 134 L Potassium Chloride 93.7 L Carbon Dioxide BUN 46 H Creatinine 3.6 H Glucose 275 H POC Glucose Lactic Acid Calcium 7.7 L Phosphorus Ferritin Total Bilirubin 1.30 H Direct Bilirubin AST 5899 H ALT 6440 H Lactate Dehydrogenase Total Creatine Kinase Troponin T Total Protein 5.9 L Albumin 3.3 L Triglycerides Arterial Blood Glucose Arterial Blood Ionized Calcium Urine pH Urine Creatinine Salicylates Acetaminophen Coronavirus (PCR) 09/10/20 09/10/20 09/10/20 04:35 12:06 17:42 WBC RBC Hgb Hct MCHC RDW Lymph % (Auto) [place] % (Auto) Lymph # (Auto) [place] # (Auto) Seg Neutrophils % Seg Neuts % (Manual) Lymphocytes % (Manual) Monocytes % (Manual) Nucleated RBC % Seg Neutrophils # Seg Neutrophils # Man Lymphocytes # (Manual) Monocytes # (Manual) PT INR D-Dimer ABG pH 7.464 H POC ABG pCO2 POC ABG pO2 ABG pO2 ABG HCO3 ABG Base Excess ABG Hemoglobin 9.9 L ABG Oxyhemoglobin ABG Sodium 131.6 L ABG Potassium ABG Chloride 97.0 L ABG Glucose 281 H Carboxyhemoglobin 0.1 L Sodium Potassium Chloride Carbon Dioxide BUN Creatinine Glucose POC Glucose 298 H 340 H Lactic Acid Calcium Phosphorus Ferritin Total Bilirubin Direct Bilirubin AST ALT Lactate Dehydrogenase Total Creatine Kinase Troponin T Total Protein Albumin Triglycerides Arterial Blood Glucose 281 H Arterial Blood Ionized Calcium 3.9 L Urine pH Urine Creatinine Salicylates Acetaminophen Coronavirus (PCR) 09/10/20 09/11/20 09/11/20 23:07 04:44 05:17 WBC RBC Hgb Hct MCHC RDW Lymph % (Auto) [place] % (Auto) Lymph # (Auto) [place] # (Auto) Seg Neutrophils % Seg Neuts % (Manual) Lymphocytes % (Manual) Monocytes % (Manual) Nucleated RBC % Seg Neutrophils # Seg Neutrophils # Man Lymphocytes # (Manual) Monocytes # (Manual) PT 16.9 H INR 1.39 H D-Dimer ABG pH POC ABG pCO2 POC ABG pO2 ABG pO2 ABG HCO3 ABG Base Excess ABG Hemoglobin ABG Oxyhemoglobin ABG Sodium ABG Potassium ABG Chloride ABG Glucose Carboxyhemoglobin Sodium Potassium Chloride Carbon Dioxide BUN Creatinine Glucose POC Glucose 367 H 416 H Lactic Acid Calcium Phosphorus Ferritin Total Bilirubin Direct Bilirubin AST ALT Lactate Dehydrogenase Total Creatine Kinase Troponin T Total Protein Albumin Triglycerides Arterial Blood Glucose Arterial Blood Ionized Calcium Urine pH Urine Creatinine Salicylates Acetaminophen Coronavirus (PCR) 09/11/20 09/11/20 09/11/20 05:40 12:01 17:50 WBC RBC Hgb Hct MCHC RDW Lymph % (Auto) [place] % (Auto) Lymph # (Auto) [place] # (Auto) Seg Neutrophils % Seg Neuts % (Manual) Lymphocytes % (Manual) Monocytes % (Manual) Nucleated RBC % Seg Neutrophils # Seg Neutrophils # Man Lymphocytes # (Manual) Monocytes # (Manual) PT INR D-Dimer ABG pH 7.543 H POC ABG pCO2 POC ABG pO2 ABG pO2 112.1 H ABG HCO3 28.1 H ABG Base Excess 5.4 H ABG Hemoglobin 8.4 L ABG Oxyhemoglobin ABG Sodium ABG Potassium ABG Chloride ABG Glucose Carboxyhemoglobin Sodium Potassium Chloride Carbon Dioxide BUN Creatinine Glucose POC Glucose 418 H 404 H Lactic Acid Calcium Phosphorus Ferritin Total Bilirubin Direct Bilirubin AST ALT Lactate Dehydrogenase Total Creatine Kinase Troponin T Total Protein Albumin Triglycerides Arterial Blood Glucose Arterial Blood Ionized Calcium Urine pH Urine Creatinine Salicylates Acetaminophen Coronavirus (PCR) 09/11/20 09/11/20 09/12/20 23:10 23:43 03:15 WBC RBC Hgb Hct MCHC RDW Lymph % (Auto) [place] % (Auto) Lymph # (Auto) [place] # (Auto) Seg Neutrophils % Seg Neuts % (Manual) Lymphocytes % (Manual) Monocytes % (Manual) Nucleated RBC % Seg Neutrophils # Seg Neutrophils # Man Lymphocytes # (Manual) Monocytes # (Manual) PT INR D-Dimer ABG pH POC ABG pCO2 POC ABG pO2 ABG pO2 ABG HCO3 ABG Base Excess ABG Hemoglobin ABG Oxyhemoglobin ABG Sodium ABG Potassium ABG Chloride ABG Glucose Carboxyhemoglobin Sodium 135 L Potassium Chloride 92.3 L Carbon Dioxide BUN 62 H Creatinine 3.7 H Glucose 406 H POC Glucose 372 H 359 H Lactic Acid Calcium Phosphorus Ferritin Total Bilirubin Direct Bilirubin AST 687 H ALT 3701 H Lactate Dehydrogenase Total Creatine Kinase Troponin T Total Protein 5.8 L Albumin 3.1 L Triglycerides Arterial Blood Glucose Arterial Blood Ionized Calcium Urine pH Urine Creatinine Salicylates Acetaminophen Coronavirus (PCR) 09/12/20 09/12/20 09/12/20 03:18 04:00 04:00 WBC 13.7 H RBC 3.30 L Hgb 9.3 L Hct 27.6 L MCHC RDW 17.5 H Lymph % (Auto) [place] % (Auto) Lymph # (Auto) [place] # (Auto) Seg Neutrophils % Seg Neuts % (Manual) 76.0 H Lymphocytes % (Manual) 11.0 L Monocytes % (Manual) 13.0 H Nucleated RBC % Seg Neutrophils # Seg Neutrophils # Man 10.4 H Lymphocytes # (Manual) Monocytes # (Manual) 1.8 H PT 16.1 H INR 1.31 H D-Dimer ABG pH 7.558 H POC ABG pCO2 POC ABG pO2 74.7 L ABG pO2 ABG HCO3 ABG Base Excess ABG Hemoglobin 9.7 L ABG Oxyhemoglobin ABG Sodium 132.4 L ABG Potassium ABG Chloride 95.0 L ABG Glucose 437 H Carboxyhemoglobin Sodium Potassium Chloride Carbon Dioxide BUN Creatinine Glucose POC Glucose Lactic Acid Calcium Phosphorus Ferritin Total Bilirubin Direct Bilirubin AST ALT Lactate Dehydrogenase Total Creatine Kinase Troponin T Total Protein Albumin Triglycerides Arterial Blood Glucose 437 H Arterial Blood Ionized Calcium 4.3 L Urine pH Urine Creatinine Salicylates Acetaminophen Coronavirus (PCR) 09/12/20 09/12/20 09/12/20 04:21 05:20 06:37 WBC RBC Hgb Hct MCHC RDW Lymph % (Auto) [place] % (Auto) Lymph # (Auto) [place] # (Auto) Seg Neutrophils % Seg Neuts % (Manual) Lymphocytes % (Manual) Monocytes % (Manual) Nucleated RBC % Seg Neutrophils # Seg Neutrophils # Man Lymphocytes # (Manual) Monocytes # (Manual) PT INR D-Dimer ABG pH POC ABG pCO2 POC ABG pO2 ABG pO2 ABG HCO3 ABG Base Excess ABG Hemoglobin ABG Oxyhemoglobin ABG Sodium ABG Potassium ABG Chloride ABG Glucose Carboxyhemoglobin Sodium Potassium Chloride Carbon Dioxide BUN Creatinine Glucose POC Glucose 417 H 397 H 370 H Lactic Acid Calcium Phosphorus Ferritin Total Bilirubin Direct Bilirubin AST ALT Lactate Dehydrogenase Total Creatine Kinase Troponin T Total Protein Albumin Triglycerides Arterial Blood Glucose Arterial Blood Ionized Calcium Urine pH Urine Creatinine Salicylates Acetaminophen Coronavirus (PCR) 09/12/20 09/12/20 09/12/20 11:56 17:14 21:52 WBC RBC Hgb Hct MCHC RDW Lymph % (Auto) [place] % (Auto) Lymph # (Auto) [place] # (Auto) Seg Neutrophils % Seg Neuts % (Manual) Lymphocytes % (Manual) Monocytes % (Manual) Nucleated RBC % Seg Neutrophils # Seg Neutrophils # Man Lymphocytes # (Manual) Monocytes # (Manual) PT INR D-Dimer ABG pH POC ABG pCO2 POC ABG pO2 ABG pO2 ABG HCO3 ABG Base Excess ABG Hemoglobin ABG Oxyhemoglobin ABG Sodium ABG Potassium ABG Chloride ABG Glucose Carboxyhemoglobin Sodium Potassium Chloride Carbon Dioxide BUN Creatinine Glucose POC Glucose 341 H 325 H 285 H Lactic Acid Calcium Phosphorus Ferritin Total Bilirubin Direct Bilirubin AST ALT Lactate Dehydrogenase Total Creatine Kinase Troponin T Total Protein Albumin Triglycerides Arterial Blood Glucose Arterial Blood Ionized Calcium Urine pH Urine Creatinine Salicylates Acetaminophen Coronavirus (PCR) 09/12/20 09/12/20 09/12/20 23:39 Unknown Unknown WBC RBC Hgb Hct MCHC RDW Lymph % (Auto) [place] % (Auto) Lymph # (Auto) [place] # (Auto) Seg Neutrophils % Seg Neuts % (Manual) Lymphocytes % (Manual) Monocytes % (Manual) Nucleated RBC % Seg Neutrophils # Seg Neutrophils # Man Lymphocytes # (Manual) Monocytes # (Manual) PT INR D-Dimer ABG pH POC ABG pCO2 POC ABG pO2 ABG pO2 ABG HCO3 ABG Base Excess ABG Hemoglobin ABG Oxyhemoglobin ABG Sodium ABG Potassium ABG Chloride ABG Glucose Carboxyhemoglobin Sodium 135 L Potassium Chloride 92.2 L Carbon Dioxide BUN 65 H Creatinine 3.5 H Glucose 418 H POC Glucose 338 H Lactic Acid Calcium Phosphorus Ferritin Total Bilirubin Direct Bilirubin AST 553 H ALT 3453 H Lactate Dehydrogenase Total Creatine Kinase Troponin T Total Protein 5.9 L Albumin 3.0 L Triglycerides 220 H Arterial Blood Glucose Arterial Blood Ionized Calcium Urine pH Urine Creatinine Salicylates Acetaminophen Coronavirus (PCR) 09/13/20 09/13/20 09/13/20 04:47 05:24 10:50 WBC RBC Hgb Hct MCHC RDW Lymph % (Auto) [place] % (Auto) Lymph # (Auto) [place] # (Auto) Seg Neutrophils % Seg Neuts % (Manual) Lymphocytes % (Manual) Monocytes % (Manual) Nucleated RBC % Seg Neutrophils # Seg Neutrophils # Man Lymphocytes # (Manual) Monocytes # (Manual) PT INR D-Dimer ABG pH 7.571 H POC ABG pCO2 POC ABG pO2 69.0 L ABG pO2 ABG HCO3 ABG Base Excess ABG Hemoglobin 10.1 L ABG Oxyhemoglobin 93.2 L ABG Sodium 134.0 L ABG Potassium ABG Chloride ABG Glucose 365 H Carboxyhemoglobin 0.4 L Sodium Potassium Chloride 96.6 L Carbon Dioxide 32 H BUN 76 H Creatinine 3.1 H Glucose 395 H POC Glucose 329 H Lactic Acid Calcium Phosphorus Ferritin Total Bilirubin Direct Bilirubin AST ALT Lactate Dehydrogenase Total Creatine Kinase Troponin T Total Protein Albumin Triglycerides Arterial Blood Glucose 365 H Arterial Blood Ionized Calcium Urine pH Urine Creatinine Salicylates Acetaminophen Coronavirus (PCR) 09/13/20 09/13/20 09/13/20 11:39 17:48 23:35 WBC RBC Hgb Hct MCHC RDW Lymph % (Auto) [place] % (Auto) Lymph # (Auto) [place] # (Auto) Seg Neutrophils % Seg Neuts % (Manual) Lymphocytes % (Manual) Monocytes % (Manual) Nucleated RBC % Seg Neutrophils # Seg Neutrophils # Man Lymphocytes # (Manual) Monocytes # (Manual) PT INR D-Dimer ABG pH POC ABG pCO2 POC ABG pO2 ABG pO2 ABG HCO3 ABG Base Excess ABG Hemoglobin ABG Oxyhemoglobin ABG Sodium ABG Potassium ABG Chloride ABG Glucose Carboxyhemoglobin Sodium Potassium Chloride Carbon Dioxide BUN Creatinine Glucose POC Glucose 344 H 286 H 223 H Lactic Acid Calcium Phosphorus Ferritin Total Bilirubin Direct Bilirubin AST ALT Lactate Dehydrogenase Total Creatine Kinase Troponin T Total Protein Albumin Triglycerides Arterial Blood Glucose Arterial Blood Ionized Calcium Urine pH Urine Creatinine Salicylates Acetaminophen Coronavirus (PCR) 09/14/20 09/14/20 09/14/20 03:54 05:34 10:27 WBC RBC Hgb Hct MCHC RDW Lymph % (Auto) [place] % (Auto) Lymph # (Auto) [place] # (Auto) Seg Neutrophils % Seg Neuts % (Manual) Lymphocytes % (Manual) Monocytes % (Manual) Nucleated RBC % Seg Neutrophils # Seg Neutrophils # Man Lymphocytes # (Manual) Monocytes # (Manual) PT INR D-Dimer ABG pH POC ABG pCO2 POC ABG pO2 71.1 L ABG pO2 ABG HCO3 ABG Base Excess ABG Hemoglobin 10.3 L ABG Oxyhemoglobin ABG Sodium 135.2 L ABG Potassium ABG Chloride ABG Glucose 281 H Carboxyhemoglobin Sodium Potassium Chloride 96.6 L Carbon Dioxide BUN 100 H Creatinine 3.9 H Glucose 286 H POC Glucose 252 H Lactic Acid Calcium Phosphorus Ferritin Total Bilirubin Direct Bilirubin AST 145 H ALT 1400 H Lactate Dehydrogenase Total Creatine Kinase Troponin T Total Protein 5.6 L Albumin 2.9 L Triglycerides Arterial Blood Glucose 281 H Arterial Blood Ionized Calcium Urine pH Urine Creatinine Salicylates Acetaminophen Coronavirus (PCR) 09/14/20 09/14/20 09/14/20 11:38 17:52 23:07 WBC RBC Hgb Hct MCHC RDW Lymph % (Auto) [place] % (Auto) Lymph # (Auto) [place] # (Auto) Seg Neutrophils % Seg Neuts % (Manual) Lymphocytes % (Manual) Monocytes % (Manual) Nucleated RBC % Seg Neutrophils # Seg Neutrophils # Man Lymphocytes # (Manual) Monocytes # (Manual) PT INR D-Dimer ABG pH POC ABG pCO2 POC ABG pO2 ABG pO2 ABG HCO3 ABG Base Excess ABG Hemoglobin ABG Oxyhemoglobin ABG Sodium ABG Potassium ABG Chloride ABG Glucose Carboxyhemoglobin Sodium Potassium Chloride Carbon Dioxide BUN Creatinine Glucose POC Glucose 247 H 247 H 256 H Lactic Acid Calcium Phosphorus Ferritin Total Bilirubin Direct Bilirubin AST ALT Lactate Dehydrogenase Total Creatine Kinase Troponin T Total Protein Albumin Triglycerides Arterial Blood Glucose Arterial Blood Ionized Calcium Urine pH Urine Creatinine Salicylates Acetaminophen Coronavirus (PCR) 09/15/20 09/15/20 09/15/20 04:54 11:24 17:48 WBC RBC Hgb Hct MCHC RDW Lymph % (Auto) [place] % (Auto) Lymph # (Auto) [place] # (Auto) Seg Neutrophils % Seg Neuts % (Manual) Lymphocytes % (Manual) Monocytes % (Manual) Nucleated RBC % Seg Neutrophils # Seg Neutrophils # Man Lymphocytes # (Manual) Monocytes # (Manual) PT INR D-Dimer ABG pH POC ABG pCO2 POC ABG pO2 ABG pO2 ABG HCO3 ABG Base Excess ABG Hemoglobin ABG Oxyhemoglobin ABG Sodium ABG Potassium ABG Chloride ABG Glucose Carboxyhemoglobin Sodium Potassium Chloride Carbon Dioxide BUN Creatinine Glucose POC Glucose 271 H 228 H 254 H Lactic Acid Calcium Phosphorus Ferritin Total Bilirubin Direct Bilirubin AST ALT Lactate Dehydrogenase Total Creatine Kinase Troponin T Total Protein Albumin Triglycerides Arterial Blood Glucose Arterial Blood Ionized Calcium Urine pH Urine Creatinine Salicylates Acetaminophen Coronavirus (PCR) 09/15/20 09/15/2009/15/21 19:20 19:20 23:13 WBC 27.3 H RBC 3.16 L Hgb 8.8 L Hct 27.0 L MCHC RDW 19.7 H Lymph % (Auto) [place] % (Auto) Lymph # (Auto) [place] # (Auto) Seg Neutrophils % Seg Neuts % (Manual) 81.0 H Lymphocytes % (Manual) 9.0 L Monocytes % (Manual) 10.0 H Nucleated RBC % Seg Neutrophils # Seg Neutrophils # Man 22.1 H Lymphocytes # (Manual) Monocytes # (Manual) 2.7 H PT INR D-Dimer ABG pH POC ABG pCO2 POC ABG pO2 ABG pO2 ABG HCO3 ABG Base Excess ABG Hemoglobin ABG Oxyhemoglobin ABG Sodium ABG Potassium ABG Chloride ABG Glucose Carboxyhemoglobin Sodium Potassium Chloride Carbon Dioxide BUN 68 H Creatinine 2.8 H Glucose 288 H POC Glucose 259 H Lactic Acid Calcium Phosphorus Ferritin Total Bilirubin Direct Bilirubin AST ALT Lactate Dehydrogenase Total Creatine Kinase Troponin T Total Protein Albumin Triglycerides Arterial Blood Glucose Arterial Blood Ionized Calcium Urine pH Urine Creatinine Salicylates Acetaminophen Coronavirus (PCR) 09/16/20 09/16/20 09/16/20 05:27 09:40 11:48 WBC RBC Hgb Hct MCHC RDW Lymph % (Auto) [place] % (Auto) Lymph # (Auto) [place] # (Auto) Seg Neutrophils % Seg Neuts % (Manual) Lymphocytes % (Manual) Monocytes % (Manual) Nucleated RBC % Seg Neutrophils # Seg Neutrophils # Man Lymphocytes # (Manual) Monocytes # (Manual) PT INR D-Dimer ABG pH POC ABG pCO2 POC ABG pO2 ABG pO2 ABG HCO3 ABG Base Excess ABG Hemoglobin ABG Oxyhemoglobin ABG Sodium ABG Potassium ABG Chloride ABG Glucose Carboxyhemoglobin Sodium Potassium Chloride Carbon Dioxide 31 H BUN 77 H Creatinine 2.9 H Glucose 250 H POC Glucose 275 H 234 H Lactic Acid Calcium Phosphorus Ferritin Total Bilirubin Direct Bilirubin AST ALT Lactate Dehydrogenase Total Creatine Kinase Troponin T Total Protein Albumin Triglycerides Arterial Blood Glucose Arterial Blood Ionized Calcium Urine pH Urine Creatinine Salicylates Acetaminophen Coronavirus (PCR) 09/16/20 09/16/20 09/17/20 17:40 23:23 00:01 WBC RBC Hgb Hct MCHC RDW Lymph % (Auto) [place] % (Auto) Lymph # (Auto) [place] # (Auto) Seg Neutrophils % Seg Neuts % (Manual) Lymphocytes % (Manual) Monocytes % (Manual) Nucleated RBC % Seg Neutrophils # Seg Neutrophils # Man Lymphocytes # (Manual) Monocytes # (Manual) PT INR D-Dimer ABG pH POC ABG pCO2 POC ABG pO2 ABG pO2 ABG HCO3 ABG Base Excess ABG Hemoglobin ABG Oxyhemoglobin ABG Sodium ABG Potassium ABG Chloride ABG Glucose Carboxyhemoglobin Sodium Potassium Chloride Carbon Dioxide BUN Creatinine Glucose POC Glucose 172 H 161 H Lactic Acid 2.10 H* Calcium Phosphorus Ferritin Total Bilirubin Direct Bilirubin AST ALT Lactate Dehydrogenase Total Creatine Kinase Troponin T Total Protein Albumin Triglycerides Arterial Blood Glucose Arterial Blood Ionized Calcium Urine pH Urine Creatinine Salicylates Acetaminophen Coronavirus (PCR) 09/17/20 09/17/20 09/17/20 04:00 04:00 05:09 WBC 19.5 H RBC 3.03 L Hgb 8.6 L Hct 26.3 L MCHC RDW 19.4 H Lymph % (Auto) 8.7 L [place] % (Auto) 13.7 H Lymph # (Auto) [place] # (Auto) 2.7 H Seg Neutrophils % 76.9 H Seg Neuts % (Manual) Lymphocytes % (Manual) Monocytes % (Manual) Nucleated RBC % Seg Neutrophils # 15.0 H Seg Neutrophils # Man Lymphocytes # (Manual) Monocytes # (Manual) PT INR D-Dimer ABG pH POC ABG pCO2 POC ABG pO2 ABG pO2 ABG HCO3 ABG Base Excess ABG Hemoglobin ABG Oxyhemoglobin ABG Sodium ABG Potassium ABG Chloride ABG Glucose Carboxyhemoglobin Sodium 146 H Potassium 3.1 L Chloride Carbon Dioxide BUN 79 H Creatinine 2.6 H Glucose 122 H POC Glucose 116 H Lactic Acid Calcium Phosphorus Ferritin Total Bilirubin Direct Bilirubin AST 64 H ALT 516 H Lactate Dehydrogenase Total Creatine Kinase Troponin T Total Protein 5.7 L Albumin 2.8 L Triglycerides Arterial Blood Glucose Arterial Blood Ionized Calcium Urine pH Urine Creatinine Salicylates Acetaminophen Coronavirus (PCR) 09/17/20 09/17/20 09/18/20 13:52 17:38 05:16 WBC RBC Hgb Hct MCHC RDW Lymph % (Auto) [place] % (Auto) Lymph # (Auto) [place] # (Auto) Seg Neutrophils % Seg Neuts % (Manual) Lymphocytes % (Manual) Monocytes % (Manual) Nucleated RBC % Seg Neutrophils # Seg Neutrophils # Man Lymphocytes # (Manual) Monocytes # (Manual) PT INR D-Dimer ABG pH POC ABG pCO2 POC ABG pO2 ABG pO2 ABG HCO3 ABG Base Excess ABG Hemoglobin ABG Oxyhemoglobin ABG Sodium ABG Potassium ABG Chloride ABG Glucose Carboxyhemoglobin Sodium Potassium Chloride Carbon Dioxide BUN Creatinine Glucose POC Glucose 68 L 126 H Lactic Acid 2.90 H* Calcium Phosphorus Ferritin Total Bilirubin Direct Bilirubin AST ALT Lactate Dehydrogenase Total Creatine Kinase Troponin T Total Protein Albumin Triglycerides Arterial Blood Glucose Arterial Blood Ionized Calcium Urine pH Urine Creatinine Salicylates Acetaminophen Coronavirus (PCR) 09/18/20 09/18/20 09/18/20 05:30 05:30 11:42 WBC 18.2 H RBC 3.18 L Hgb 9.0 L Hct 27.2 L MCHC RDW 18.8 H Lymph % (Auto) [place] % (Auto) Lymph # (Auto) [place] # (Auto) Seg Neutrophils % Seg Neuts % (Manual) Lymphocytes % (Manual) Monocytes % (Manual) Nucleated RBC % Seg Neutrophils # Seg Neutrophils # Man Lymphocytes # (Manual) Monocytes # (Manual) PT INR D-Dimer ABG pH POC ABG pCO2 POC ABG pO2 ABG pO2 ABG HCO3 ABG Base Excess ABG Hemoglobin ABG Oxyhemoglobin ABG Sodium ABG Potassium ABG Chloride ABG Glucose Carboxyhemoglobin Sodium Potassium 3.1 L Chloride Carbon Dioxide BUN 73 H Creatinine 2.6 H Glucose 154 H POC Glucose 140 H Lactic Acid Calcium Phosphorus Ferritin Total Bilirubin Direct Bilirubin AST ALT Lactate Dehydrogenase Total Creatine Kinase Troponin T Total Protein Albumin Triglycerides Arterial Blood Glucose Arterial Blood Ionized Calcium Urine pH Urine Creatinine Salicylates Acetaminophen Coronavirus (PCR) 09/18/20 09/18/20 09/19/20 18:15 23:37 05:13 WBC 22.8 H RBC 3.30 L Hgb 9.2 L Hct 28.1 L MCHC RDW 18.2 H Lymph % (Auto) [place] % (Auto) Lymph # (Auto) [place] # (Auto) Seg Neutrophils % Seg Neuts % (Manual) 87.0 H Lymphocytes % (Manual) 5.0 L Monocytes % (Manual) Nucleated RBC % Seg Neutrophils # Seg Neutrophils # Man 19.8 H Lymphocytes # (Manual) 1.1 L Monocytes # (Manual) 1.6 H PT INR D-Dimer ABG pH POC ABG pCO2 POC ABG pO2 ABG pO2 ABG HCO3 ABG Base Excess ABG Hemoglobin ABG Oxyhemoglobin ABG Sodium ABG Potassium ABG Chloride ABG Glucose Carboxyhemoglobin Sodium Potassium Chloride Carbon Dioxide BUN Creatinine Glucose POC Glucose 149 H 153 H Lactic Acid Calcium Phosphorus Ferritin Total Bilirubin Direct Bilirubin AST ALT Lactate Dehydrogenase Total Creatine Kinase Troponin T Total Protein Albumin Triglycerides Arterial Blood Glucose Arterial Blood Ionized Calcium Urine pH Urine Creatinine Salicylates Acetaminophen Coronavirus (PCR) 09/19/20 09/19/20 09/19/20 05:13 05:25 11:56 WBC RBC Hgb Hct MCHC RDW Lymph % (Auto) [place] % (Auto) Lymph # (Auto) [place] # (Auto) Seg Neutrophils % Seg Neuts % (Manual) Lymphocytes % (Manual) Monocytes % (Manual) Nucleated RBC % Seg Neutrophils # Seg Neutrophils # Man Lymphocytes # (Manual) Monocytes # (Manual) PT INR D-Dimer ABG pH POC ABG pCO2 POC ABG pO2 ABG pO2 ABG HCO3 ABG Base Excess ABG Hemoglobin ABG Oxyhemoglobin ABG Sodium ABG Potassium ABG Chloride ABG Glucose Carboxyhemoglobin Sodium Potassium Chloride Carbon Dioxide BUN 55 H Creatinine 2.3 H Glucose 196 H POC Glucose 168 H 137 H Lactic Acid Calcium Phosphorus Ferritin Total Bilirubin Direct Bilirubin AST ALT Lactate Dehydrogenase Total Creatine Kinase Troponin T Total Protein Albumin Triglycerides Arterial Blood Glucose Arterial Blood Ionized Calcium Urine pH Urine Creatinine Salicylates Acetaminophen Coronavirus (PCR) 09/19/20 09/19/20 09/20/20 17:43 23:43 05:02 WBC RBC Hgb Hct MCHC RDW Lymph % (Auto) [place] % (Auto) Lymph # (Auto) [place] # (Auto) Seg Neutrophils % Seg Neuts % (Manual) Lymphocytes % (Manual) Monocytes % (Manual) Nucleated RBC % Seg Neutrophils # Seg Neutrophils # Man Lymphocytes # (Manual) Monocytes # (Manual) PT INR D-Dimer ABG pH POC ABG pCO2 POC ABG pO2 ABG pO2 ABG HCO3 ABG Base Excess ABG Hemoglobin ABG Oxyhemoglobin ABG Sodium ABG Potassium ABG Chloride ABG Glucose Carboxyhemoglobin Sodium Potassium Chloride Carbon Dioxide BUN Creatinine Glucose POC Glucose 114 H 136 H 163 H Lactic Acid Calcium Phosphorus Ferritin Total Bilirubin Direct Bilirubin AST ALT Lactate Dehydrogenase Total Creatine Kinase Troponin T Total Protein Albumin Triglycerides Arterial Blood Glucose Arterial Blood Ionized Calcium Urine pH Urine Creatinine Salicylates Acetaminophen Coronavirus (PCR) 09/20/20 09/20/20 09/20/20 05:36 05:36 11:10 WBC 20.1 H RBC 3.07 L Hgb 8.5 L Hct 26.4 L MCHC RDW 18.6 H Lymph % (Auto) 9.6 L [place] % (Auto) 9.6 H Lymph # (Auto) [place] # (Auto) 1.9 H Seg Neutrophils % 79.0 H Seg Neuts % (Manual) Lymphocytes % (Manual) Monocytes % (Manual) Nucleated RBC % Seg Neutrophils # 15.9 H Seg Neutrophils # Man Lymphocytes # (Manual) Monocytes # (Manual) PT INR D-Dimer ABG pH POC ABG pCO2 POC ABG pO2 ABG pO2 ABG HCO3 ABG Base Excess ABG Hemoglobin ABG Oxyhemoglobin ABG Sodium ABG Potassium ABG Chloride ABG Glucose Carboxyhemoglobin Sodium Potassium 3.3 L Chloride Carbon Dioxide BUN 76 H Creatinine 3.6 H D Glucose 213 H POC Glucose 167 H Lactic Acid Calcium Phosphorus Ferritin Total Bilirubin Direct Bilirubin AST ALT Lactate Dehydrogenase Total Creatine Kinase Troponin T Total Protein Albumin Triglycerides Arterial Blood Glucose Arterial Blood Ionized Calcium Urine pH Urine Creatinine Salicylates Acetaminophen Coronavirus (PCR) 09/20/20 09/20/20 09/20/20 14:02 17:24 23:30 WBC RBC Hgb Hct MCHC RDW Lymph % (Auto) [place] % (Auto) Lymph # (Auto) [place] # (Auto) Seg Neutrophils % Seg Neuts % (Manual) Lymphocytes % (Manual) Monocytes % (Manual) Nucleated RBC % Seg Neutrophils # Seg Neutrophils # Man Lymphocytes # (Manual) Monocytes # (Manual) PT INR D-Dimer ABG pH POC ABG pCO2 POC ABG pO2 ABG pO2 ABG HCO3 ABG Base Excess ABG Hemoglobin ABG Oxyhemoglobin ABG Sodium ABG Potassium ABG Chloride ABG Glucose Carboxyhemoglobin Sodium Potassium Chloride Carbon Dioxide BUN Creatinine Glucose POC Glucose 164 H 146 H 147 H Lactic Acid Calcium Phosphorus Ferritin Total Bilirubin Direct Bilirubin AST ALT Lactate Dehydrogenase Total Creatine Kinase Troponin T Total Protein Albumin Triglycerides Arterial Blood Glucose Arterial Blood Ionized Calcium Urine pH Urine Creatinine Salicylates Acetaminophen Coronavirus (PCR) 09/21/20 09/21/20 09/21/20 05:00 05:00 05:24 WBC 17.4 H RBC 2.95 L Hgb 8.3 L Hct 25.8 L MCHC RDW 19.3 H Lymph % (Auto) 11.1 L [place] % (Auto) 11.1 H Lymph # (Auto) [place] # (Auto) 1.9 H Seg Neutrophils % 75.9 H Seg Neuts % (Manual) Lymphocytes % (Manual) Monocytes % (Manual) Nucleated RBC % Seg Neutrophils # 13.2 H Seg Neutrophils # Man Lymphocytes # (Manual) Monocytes # (Manual) PT INR D-Dimer ABG pH POC ABG pCO2 POC ABG pO2 ABG pO2 ABG HCO3 ABG Base Excess ABG Hemoglobin ABG Oxyhemoglobin ABG Sodium ABG Potassium ABG Chloride ABG Glucose Carboxyhemoglobin Sodium Potassium Chloride Carbon Dioxide BUN 60 H Creatinine 3.5 H Glucose 185 H POC Glucose 139 H Lactic Acid Calcium Phosphorus Ferritin Total Bilirubin Direct Bilirubin AST ALT Lactate Dehydrogenase Total Creatine Kinase Troponin T Total Protein Albumin Triglycerides Arterial Blood Glucose Arterial Blood Ionized Calcium Urine pH Urine Creatinine Salicylates Acetaminophen Coronavirus (PCR) 09/21/20 09/21/20 09/21/20 11:59 17:59 23:32 WBC RBC Hgb Hct MCHC RDW Lymph % (Auto) [place] % (Auto) Lymph # (Auto) [place] # (Auto) Seg Neutrophils % Seg Neuts % (Manual) Lymphocytes % (Manual) Monocytes % (Manual) Nucleated RBC % Seg Neutrophils # Seg Neutrophils # Man Lymphocytes # (Manual) Monocytes # (Manual) PT INR D-Dimer ABG pH POC ABG pCO2 POC ABG pO2 ABG pO2 ABG HCO3 ABG Base Excess ABG Hemoglobin ABG Oxyhemoglobin ABG Sodium ABG Potassium ABG Chloride ABG Glucose Carboxyhemoglobin Sodium Potassium Chloride Carbon Dioxide BUN Creatinine Glucose POC Glucose 183 H 141 H 162 H Lactic Acid Calcium Phosphorus Ferritin Total Bilirubin Direct Bilirubin AST ALT Lactate Dehydrogenase Total Creatine Kinase Troponin T Total Protein Albumin Triglycerides Arterial Blood Glucose Arterial Blood Ionized Calcium Urine pH Urine Creatinine Salicylates Acetaminophen Coronavirus (PCR) 09/22/20 09/22/20 09/22/20 05:32 12:07 17:53 WBC RBC Hgb Hct MCHC RDW Lymph % (Auto) [place] % (Auto) Lymph # (Auto) [place] # (Auto) Seg Neutrophils % Seg Neuts % (Manual) Lymphocytes % (Manual) Monocytes % (Manual) Nucleated RBC % Seg Neutrophils # Seg Neutrophils # Man Lymphocytes # (Manual) Monocytes # (Manual) PT INR D-Dimer ABG pH POC ABG pCO2 POC ABG pO2 ABG pO2 ABG HCO3 ABG Base Excess ABG Hemoglobin ABG Oxyhemoglobin ABG Sodium ABG Potassium ABG Chloride ABG Glucose Carboxyhemoglobin Sodium Potassium Chloride Carbon Dioxide BUN Creatinine Glucose POC Glucose 172 H 169 H 178 H Lactic Acid Calcium Phosphorus Ferritin Total Bilirubin Direct Bilirubin AST ALT Lactate Dehydrogenase Total Creatine Kinase Troponin T Total Protein Albumin Triglycerides Arterial Blood Glucose Arterial Blood Ionized Calcium Urine pH Urine Creatinine Salicylates Acetaminophen Coronavirus (PCR) 09/22/20 09/23/20 09/23/20 23:34 05:21 06:05 WBC RBC Hgb Hct MCHC RDW Lymph % (Auto) [place] % (Auto) Lymph # (Auto) [place] # (Auto) Seg Neutrophils % Seg Neuts % (Manual) Lymphocytes % (Manual) Monocytes % (Manual) Nucleated RBC % Seg Neutrophils # Seg Neutrophils # Man Lymphocytes # (Manual) Monocytes # (Manual) PT INR D-Dimer ABG pH POC ABG pCO2 POC ABG pO2 ABG pO2 ABG HCO3 ABG Base Excess ABG Hemoglobin ABG Oxyhemoglobin ABG Sodium ABG Potassium ABG Chloride ABG Glucose Carboxyhemoglobin Sodium 147 H Potassium Chloride 109.2 H Carbon Dioxide 21 L BUN 54 H Creatinine 4.2 H Glucose 193 H POC Glucose 151 H 168 H Lactic Acid Calcium Phosphorus Ferritin Total Bilirubin Direct Bilirubin AST ALT Lactate Dehydrogenase Total Creatine Kinase Troponin T Total Protein Albumin Triglycerides Arterial Blood Glucose Arterial Blood Ionized Calcium Urine pH Urine Creatinine Salicylates Acetaminophen Coronavirus (PCR) 09/23/20 09/23/20 09/23/20 12:30 17:52 23:16 WBC RBC Hgb Hct MCHC RDW Lymph % (Auto) [place] % (Auto) Lymph # (Auto) [place] # (Auto) Seg Neutrophils % Seg Neuts % (Manual) Lymphocytes % (Manual) Monocytes % (Manual) Nucleated RBC % Seg Neutrophils # Seg Neutrophils # Man Lymphocytes # (Manual) Monocytes # (Manual) PT INR D-Dimer ABG pH POC ABG pCO2 POC ABG pO2 ABG pO2 ABG HCO3 ABG Base Excess ABG Hemoglobin ABG Oxyhemoglobin ABG Sodium ABG Potassium ABG Chloride ABG Glucose Carboxyhemoglobin Sodium Potassium Chloride Carbon Dioxide BUN Creatinine Glucose POC Glucose 170 H 164 H 160 H Lactic Acid Calcium Phosphorus Ferritin Total Bilirubin Direct Bilirubin AST ALT Lactate Dehydrogenase Total Creatine Kinase Troponin T Total Protein Albumin Triglycerides Arterial Blood Glucose Arterial Blood Ionized Calcium Urine pH Urine Creatinine Salicylates Acetaminophen Coronavirus (PCR) 09/24/20 09/24/2009/24/21 05:22 05:44 12:32 WBC RBC Hgb Hct MCHC RDW Lymph % (Auto) [place] % (Auto) Lymph # (Auto) [place] # (Auto) Seg Neutrophils % Seg Neuts % (Manual) Lymphocytes % (Manual) Monocytes % (Manual) Nucleated RBC % Seg Neutrophils # Seg Neutrophils # Man Lymphocytes # (Manual) Monocytes # (Manual) PT INR D-Dimer ABG pH POC ABG pCO2 POC ABG pO2 ABG pO2 ABG HCO3 ABG Base Excess ABG Hemoglobin ABG Oxyhemoglobin ABG Sodium ABG Potassium ABG Chloride ABG Glucose Carboxyhemoglobin Sodium 148 H Potassium Chloride 109.2 H Carbon Dioxide BUN 61 H Creatinine 4.9 H Glucose 176 H POC Glucose 150 H 165 H Lactic Acid Calcium Phosphorus Ferritin Total Bilirubin Direct Bilirubin AST ALT Lactate Dehydrogenase Total Creatine Kinase Troponin T Total Protein Albumin Triglycerides Arterial Blood Glucose Arterial Blood Ionized Calcium Urine pH Urine Creatinine Salicylates Acetaminophen Coronavirus (PCR) 09/24/20 09/24/20 09/25/20 17:28 23:18 05:18 WBC RBC Hgb Hct MCHC RDW Lymph % (Auto) [place] % (Auto) Lymph # (Auto) [place] # (Auto) Seg Neutrophils % Seg Neuts % (Manual) Lymphocytes % (Manual) Monocytes % (Manual) Nucleated RBC % Seg Neutrophils # Seg Neutrophils # Man Lymphocytes # (Manual) Monocytes # (Manual) PT INR D-Dimer ABG pH POC ABG pCO2 POC ABG pO2 ABG pO2 ABG HCO3 ABG Base Excess ABG Hemoglobin ABG Oxyhemoglobin ABG Sodium ABG Potassium ABG Chloride ABG Glucose Carboxyhemoglobin Sodium 149 H Potassium 3.3 L Chloride 109.6 H Carbon Dioxide BUN 70 H Creatinine 5.6 H Glucose 196 H POC Glucose 153 H 177 H Lactic Acid Calcium Phosphorus Ferritin Total Bilirubin Direct Bilirubin AST 55 H ALT 74 H Lactate Dehydrogenase Total Creatine Kinase Troponin T Total Protein Albumin 2.6 L Triglycerides Arterial Blood Glucose Arterial Blood Ionized Calcium Urine pH Urine Creatinine Salicylates Acetaminophen Coronavirus (PCR) 09/25/20 09/25/20 09/25/20 05:18 11:47 17:04 WBC RBC Hgb Hct MCHC RDW Lymph % (Auto) [place] % (Auto) Lymph # (Auto) [place] # (Auto) Seg Neutrophils % Seg Neuts % (Manual) Lymphocytes % (Manual) Monocytes % (Manual) Nucleated RBC % Seg Neutrophils # Seg Neutrophils # Man Lymphocytes # (Manual) Monocytes # (Manual) PT INR D-Dimer ABG pH POC ABG pCO2 POC ABG pO2 ABG pO2 ABG HCO3 ABG Base Excess ABG Hemoglobin ABG Oxyhemoglobin ABG Sodium ABG Potassium ABG Chloride ABG Glucose Carboxyhemoglobin Sodium Potassium Chloride Carbon Dioxide BUN Creatinine Glucose POC Glucose 159 H 169 H 142 H Lactic Acid Calcium Phosphorus Ferritin Total Bilirubin Direct Bilirubin AST ALT Lactate Dehydrogenase Total Creatine Kinase Troponin T Total Protein Albumin Triglycerides Arterial Blood Glucose Arterial Blood Ionized Calcium Urine pH Urine Creatinine Salicylates Acetaminophen Coronavirus (PCR) 09/25/20 09/26/20 09/26/20 23:20 04:00 05:00 WBC RBC 2.93 L Hgb 8.5 L Hct 25.8 L MCHC RDW 18.5 H Lymph % (Auto) [place] % (Auto) 11.3 H Lymph # (Auto) [place] # (Auto) 1.1 H Seg Neutrophils % 72.0 H Seg Neuts % (Manual) Lymphocytes % (Manual) Monocytes % (Manual) Nucleated RBC % Seg Neutrophils # Seg Neutrophils # Man Lymphocytes # (Manual) Monocytes # (Manual) PT INR D-Dimer ABG pH POC ABG pCO2 POC ABG pO2 ABG pO2 ABG HCO3 ABG Base Excess ABG Hemoglobin ABG Oxyhemoglobin ABG Sodium ABG Potassium ABG Chloride ABG Glucose Carboxyhemoglobin Sodium Potassium 3.4 L Chloride Carbon Dioxide BUN 49 H Creatinine 4.4 H Glucose 179 H POC Glucose 138 H Lactic Acid Calcium Phosphorus Ferritin Total Bilirubin Direct Bilirubin AST ALT Lactate Dehydrogenase Total Creatine Kinase Troponin T Total Protein Albumin Triglycerides Arterial Blood Glucose Arterial Blood Ionized Calcium Urine pH Urine Creatinine Salicylates Acetaminophen Coronavirus (PCR) 09/26/20 09/26/20 09/26/20 05:18 11:59 17:37 WBC RBC Hgb Hct MCHC RDW Lymph % (Auto) [place] % (Auto) Lymph # (Auto) [place] # (Auto) Seg Neutrophils % Seg Neuts % (Manual) Lymphocytes % (Manual) Monocytes % (Manual) Nucleated RBC % Seg Neutrophils # Seg Neutrophils # Man Lymphocytes # (Manual) Monocytes # (Manual) PT INR D-Dimer ABG pH POC ABG pCO2 POC ABG pO2 ABG pO2 ABG HCO3 ABG Base Excess ABG Hemoglobin ABG Oxyhemoglobin ABG Sodium ABG Potassium ABG Chloride ABG Glucose Carboxyhemoglobin Sodium Potassium Chloride Carbon Dioxide BUN Creatinine Glucose POC Glucose 155 H 165 H 132 H Lactic Acid Calcium Phosphorus Ferritin Total Bilirubin Direct Bilirubin AST ALT Lactate Dehydrogenase Total Creatine Kinase Troponin T Total Protein Albumin Triglycerides Arterial Blood Glucose Arterial Blood Ionized Calcium Urine pH Urine Creatinine Salicylates Acetaminophen Coronavirus (PCR) 09/26/20 09/27/20 09/27/20 23:35 04:47 04:47 WBC RBC 3.24 L Hgb 9.3 L Hct 28.6 L MCHC RDW 18.2 H Lymph % (Auto) [place] % (Auto) 11.6 H Lymph # (Auto) [place] # (Auto) 1.0 H Seg Neutrophils % Seg Neuts % (Manual) Lymphocytes % (Manual) Monocytes % (Manual) Nucleated RBC % Seg Neutrophils # Seg Neutrophils # Man Lymphocytes # (Manual) Monocytes # (Manual) PT INR D-Dimer ABG pH POC ABG pCO2 POC ABG pO2 ABG pO2 ABG HCO3 ABG Base Excess ABG Hemoglobin ABG Oxyhemoglobin ABG Sodium ABG Potassium ABG Chloride ABG Glucose Carboxyhemoglobin Sodium Potassium Chloride Carbon Dioxide BUN 54 H Creatinine 4.7 H Glucose 218 H POC Glucose 180 H Lactic Acid Calcium Phosphorus Ferritin Total Bilirubin Direct Bilirubin AST ALT Lactate Dehydrogenase Total Creatine Kinase Troponin T Total Protein Albumin Triglycerides Arterial Blood Glucose Arterial Blood Ionized Calcium Urine pH Urine Creatinine Salicylates Acetaminophen Coronavirus (PCR) 09/27/20 09/27/20 09/27/20 05:14 11:49 17:48 WBC RBC Hgb Hct MCHC RDW Lymph % (Auto) [place] % (Auto) Lymph # (Auto) [place] # (Auto) Seg Neutrophils % Seg Neuts % (Manual) Lymphocytes % (Manual) Monocytes % (Manual) Nucleated RBC % Seg Neutrophils # Seg Neutrophils # Man Lymphocytes # (Manual) Monocytes # (Manual) PT INR D-Dimer ABG pH POC ABG pCO2 POC ABG pO2 ABG pO2 ABG HCO3 ABG Base Excess ABG Hemoglobin ABG Oxyhemoglobin ABG Sodium ABG Potassium ABG Chloride ABG Glucose Carboxyhemoglobin Sodium Potassium Chloride Carbon Dioxide BUN Creatinine Glucose POC Glucose 197 H 219 H 203 H Lactic Acid Calcium Phosphorus Ferritin Total Bilirubin Direct Bilirubin AST ALT Lactate Dehydrogenase Total Creatine Kinase Troponin T Total Protein Albumin Triglycerides Arterial Blood Glucose Arterial Blood Ionized Calcium Urine pH Urine Creatinine Salicylates Acetaminophen Coronavirus (PCR) 09/27/20 09/28/2009/28/21 23:26 05:28 07:02 WBC RBC Hgb Hct MCHC RDW Lymph % (Auto) [place] % (Auto) Lymph # (Auto) [place] # (Auto) Seg Neutrophils % Seg Neuts % (Manual) Lymphocytes % (Manual) Monocytes % (Manual) Nucleated RBC % Seg Neutrophils # Seg Neutrophils # Man Lymphocytes # (Manual) Monocytes # (Manual) PT INR D-Dimer ABG pH POC ABG pCO2 POC ABG pO2 ABG pO2 ABG HCO3 ABG Base Excess ABG Hemoglobin ABG Oxyhemoglobin ABG Sodium ABG Potassium ABG Chloride ABG Glucose Carboxyhemoglobin Sodium Potassium Chloride Carbon Dioxide BUN 37 H Creatinine 3.8 H Glucose 270 H POC Glucose 243 H 227 H Lactic Acid Calcium Phosphorus Ferritin Total Bilirubin Direct Bilirubin AST ALT Lactate Dehydrogenase Total Creatine Kinase Troponin T Total Protein Albumin Triglycerides Arterial Blood Glucose Arterial Blood Ionized Calcium Urine pH Urine Creatinine Salicylates Acetaminophen Coronavirus (PCR) 09/28/20 09/28/20 09/28/20 07:02 11:35 17:44 WBC RBC 3.26 L Hgb 9.3 L Hct 28.7 L MCHC RDW 18.5 H Lymph % (Auto) [place] % (Auto) 12.7 H Lymph # (Auto) [place] # (Auto) 1.1 H Seg Neutrophils % Seg Neuts % (Manual) Lymphocytes % (Manual) Monocytes % (Manual) Nucleated RBC % Seg Neutrophils # Seg Neutrophils # Man Lymphocytes # (Manual) Monocytes # (Manual) PT INR D-Dimer ABG pH POC ABG pCO2 POC ABG pO2 ABG pO2 ABG HCO3 ABG Base Excess ABG Hemoglobin ABG Oxyhemoglobin ABG Sodium ABG Potassium ABG Chloride ABG Glucose Carboxyhemoglobin Sodium Potassium Chloride Carbon Dioxide BUN Creatinine Glucose POC Glucose 230 H 237 H Lactic Acid Calcium Phosphorus Ferritin Total Bilirubin Direct Bilirubin AST ALT Lactate Dehydrogenase Total Creatine Kinase Troponin T Total Protein Albumin Triglycerides Arterial Blood Glucose Arterial Blood Ionized Calcium Urine pH Urine Creatinine Salicylates Acetaminophen Coronavirus (PCR) 09/28/20 09/29/20 09/29/20 23:52 05:11 05:20 WBC RBC Hgb Hct MCHC RDW Lymph % (Auto) [place] % (Auto) Lymph # (Auto) [place] # (Auto) Seg Neutrophils % Seg Neuts % (Manual) Lymphocytes % (Manual) Monocytes % (Manual) Nucleated RBC % Seg Neutrophils # Seg Neutrophils # Man Lymphocytes # (Manual) Monocytes # (Manual) PT INR D-Dimer ABG pH POC ABG pCO2 POC ABG pO2 ABG pO2 ABG HCO3 ABG Base Excess ABG Hemoglobin ABG Oxyhemoglobin ABG Sodium ABG Potassium ABG Chloride ABG Glucose Carboxyhemoglobin Sodium Potassium Chloride Carbon Dioxide BUN 47 H Creatinine 4.2 H Glucose 289 H POC Glucose 261 H 254 H Lactic Acid Calcium Phosphorus Ferritin Total Bilirubin Direct Bilirubin AST ALT Lactate Dehydrogenase Total Creatine Kinase Troponin T Total Protein Albumin Triglycerides Arterial Blood Glucose Arterial Blood Ionized Calcium Urine pH Urine Creatinine Salicylates Acetaminophen Coronavirus (PCR) 09/29/20 09/29/20 09/29/20 05:20 11:55 17:13 WBC RBC 3.23 L Hgb 9.0 L Hct 27.7 L MCHC RDW 18.3 H Lymph % (Auto) 13.0 L [place] % (Auto) 13.8 H Lymph # (Auto) [place] # (Auto) 1.5 H Seg Neutrophils % 72.3 H Seg Neuts % (Manual) Lymphocytes % (Manual) Monocytes % (Manual) Nucleated RBC % Seg Neutrophils # Seg Neutrophils # Man Lymphocytes # (Manual) Monocytes # (Manual) PT INR D-Dimer ABG pH POC ABG pCO2 POC ABG pO2 ABG pO2 ABG HCO3 ABG Base Excess ABG Hemoglobin ABG Oxyhemoglobin ABG Sodium ABG Potassium ABG Chloride ABG Glucose Carboxyhemoglobin Sodium Potassium Chloride Carbon Dioxide BUN Creatinine Glucose POC Glucose 263 H 279 H Lactic Acid Calcium Phosphorus Ferritin Total Bilirubin Direct Bilirubin AST ALT Lactate Dehydrogenase Total Creatine Kinase Troponin T Total Protein Albumin Triglycerides Arterial Blood Glucose Arterial Blood Ionized Calcium Urine pH Urine Creatinine Salicylates Acetaminophen Coronavirus (PCR) 09/29/20 09/30/20 09/30/20 23:25 05:15 06:57 WBC RBC 3.14 L Hgb 9.0 L Hct 27.4 L MCHC RDW 18.5 H Lymph % (Auto) [place] % (Auto) Lymph # (Auto) [place] # (Auto) Seg Neutrophils % Seg Neuts % (Manual) Lymphocytes % (Manual) Monocytes % (Manual) 13.0 H Nucleated RBC % Seg Neutrophils # Seg Neutrophils # Man Lymphocytes # (Manual) Monocytes # (Manual) 1.1 H PT INR D-Dimer ABG pH POC ABG pCO2 POC ABG pO2 ABG pO2 ABG HCO3 ABG Base Excess ABG Hemoglobin ABG Oxyhemoglobin ABG Sodium ABG Potassium ABG Chloride ABG Glucose Carboxyhemoglobin Sodium Potassium Chloride Carbon Dioxide BUN Creatinine Glucose POC Glucose 284 H 283 H Lactic Acid Calcium Phosphorus Ferritin Total Bilirubin Direct Bilirubin AST ALT Lactate Dehydrogenase Total Creatine Kinase Troponin T Total Protein Albumin Triglycerides Arterial Blood Glucose Arterial Blood Ionized Calcium Urine pH Urine Creatinine Salicylates Acetaminophen Coronavirus (PCR) 09/30/20 09/30/20 09/30/20 11:54 17:28 23:34 WBC RBC Hgb Hct MCHC RDW Lymph % (Auto) [place] % (Auto) Lymph # (Auto) [place] # (Auto) Seg Neutrophils % Seg Neuts % (Manual) Lymphocytes % (Manual) Monocytes % (Manual) Nucleated RBC % Seg Neutrophils # Seg Neutrophils # Man Lymphocytes # (Manual) Monocytes # (Manual) PT INR D-Dimer ABG pH POC ABG pCO2 POC ABG pO2 ABG pO2 ABG HCO3 ABG Base Excess ABG Hemoglobin ABG Oxyhemoglobin ABG Sodium ABG Potassium ABG Chloride ABG Glucose Carboxyhemoglobin Sodium Potassium Chloride Carbon Dioxide BUN Creatinine Glucose POC Glucose 288 H 262 H 258 H Lactic Acid Calcium Phosphorus Ferritin Total Bilirubin Direct Bilirubin AST ALT Lactate Dehydrogenase Total Creatine Kinase Troponin T Total Protein Albumin Triglycerides Arterial Blood Glucose Arterial Blood Ionized Calcium Urine pH Urine Creatinine Salicylates Acetaminophen Coronavirus (PCR) 10/01/20 10/01/20 10/01/20 04:33 04:49 05:30 WBC RBC 2.87 L Hgb 8.2 L Hct 24.9 L MCHC RDW 18.2 H Lymph % (Auto) [place] % (Auto) Lymph # (Auto) [place] # (Auto) 1.2 H Seg Neutrophils % Seg Neuts % (Manual) Lymphocytes % (Manual) Monocytes % (Manual) Nucleated RBC % Seg Neutrophils # Seg Neutrophils # Man Lymphocytes # (Manual) Monocytes # (Manual) PT INR D-Dimer ABG pH POC ABG pCO2 POC ABG pO2 ABG pO2 ABG HCO3 ABG Base Excess ABG Hemoglobin 10.0 L ABG Oxyhemoglobin ABG Sodium ABG Potassium ABG Chloride ABG Glucose 270 H Carboxyhemoglobin Sodium Potassium Chloride Carbon Dioxide BUN Creatinine Glucose POC Glucose 219 H Lactic Acid Calcium Phosphorus Ferritin Total Bilirubin Direct Bilirubin AST ALT Lactate Dehydrogenase Total Creatine Kinase Troponin T Total Protein Albumin Triglycerides Arterial Blood Glucose 270 H Arterial Blood Ionized Calcium Urine pH Urine Creatinine Salicylates Acetaminophen Coronavirus (PCR) 10/01/20 10/01/20 10/01/20 12:10 16:32 23:36 WBC RBC Hgb Hct MCHC RDW Lymph % (Auto) [place] % (Auto) Lymph # (Auto) [place] # (Auto) Seg Neutrophils % Seg Neuts % (Manual) Lymphocytes % (Manual) Monocytes % (Manual) Nucleated RBC % Seg Neutrophils # Seg Neutrophils # Man Lymphocytes # (Manual) Monocytes # (Manual) PT INR D-Dimer ABG pH POC ABG pCO2 POC ABG pO2 ABG pO2 ABG HCO3 ABG Base Excess ABG Hemoglobin ABG Oxyhemoglobin ABG Sodium ABG Potassium ABG Chloride ABG Glucose Carboxyhemoglobin Sodium Potassium Chloride Carbon Dioxide BUN Creatinine Glucose POC Glucose 266 H 259 H 262 H Lactic Acid Calcium Phosphorus Ferritin Total Bilirubin Direct Bilirubin AST ALT Lactate Dehydrogenase Total Creatine Kinase Troponin T Total Protein Albumin Triglycerides Arterial Blood Glucose Arterial Blood Ionized Calcium Urine pH Urine Creatinine Salicylates Acetaminophen Coronavirus (PCR) 10/02/20 10/02/20 10/02/20 00:58 05:29 10:16 WBC RBC Hgb Hct MCHC RDW Lymph % (Auto) [place] % (Auto) Lymph # (Auto) [place] # (Auto) Seg Neutrophils % Seg Neuts % (Manual) Lymphocytes % (Manual) Monocytes % (Manual) Nucleated RBC % Seg Neutrophils # Seg Neutrophils # Man Lymphocytes # (Manual) Monocytes # (Manual) PT INR D-Dimer ABG pH 7.468 H POC ABG pCO2 POC ABG pO2 72.9 L ABG pO2 ABG HCO3 ABG Base Excess ABG Hemoglobin 10.1 L ABG Oxyhemoglobin 93.1 L ABG Sodium ABG Potassium ABG Chloride 108.0 H ABG Glucose 289 H Carboxyhemoglobin Sodium Potassium Chloride Carbon Dioxide BUN 58 H Creatinine 5.0 H Glucose 324 H POC Glucose 260 H Lactic Acid Calcium Phosphorus Ferritin Total Bilirubin Direct Bilirubin AST ALT Lactate Dehydrogenase Total Creatine Kinase Troponin T Total Protein Albumin Triglycerides Arterial Blood Glucose 289 H Arterial Blood Ionized Calcium Urine pH Urine Creatinine Salicylates Acetaminophen Coronavirus (PCR) 10/02/20 10/02/20 10/03/20 11:29 17:55 00:11 WBC RBC Hgb Hct MCHC RDW Lymph % (Auto) [place] % (Auto) Lymph # (Auto) [place] # (Auto) Seg Neutrophils % Seg Neuts % (Manual) Lymphocytes % (Manual) Monocytes % (Manual) Nucleated RBC % Seg Neutrophils # Seg Neutrophils # Man Lymphocytes # (Manual) Monocytes # (Manual) PT INR D-Dimer ABG pH POC ABG pCO2 POC ABG pO2 ABG pO2 ABG HCO3 ABG Base Excess ABG Hemoglobin ABG Oxyhemoglobin ABG Sodium ABG Potassium ABG Chloride ABG Glucose Carboxyhemoglobin Sodium Potassium Chloride Carbon Dioxide BUN Creatinine Glucose POC Glucose 268 H 210 H 172 H Lactic Acid Calcium Phosphorus Ferritin Total Bilirubin Direct Bilirubin AST ALT Lactate Dehydrogenase Total Creatine Kinase Troponin T Total Protein Albumin Triglycerides Arterial Blood Glucose Arterial Blood Ionized Calcium Urine pH Urine Creatinine Salicylates Acetaminophen Coronavirus (PCR) 10/03/20 10/03/20 10/03/20 06:01 12:13 12:21 WBC RBC Hgb Hct MCHC RDW Lymph % (Auto) [place] % (Auto) Lymph # (Auto) [place] # (Auto) Seg Neutrophils % Seg Neuts % (Manual) Lymphocytes % (Manual) Monocytes % (Manual) Nucleated RBC % Seg Neutrophils # Seg Neutrophils # Man Lymphocytes # (Manual) Monocytes # (Manual) PT INR D-Dimer ABG pH POC ABG pCO2 POC ABG pO2 ABG pO2 ABG HCO3 ABG Base Excess ABG Hemoglobin ABG Oxyhemoglobin ABG Sodium ABG Potassium ABG Chloride ABG Glucose Carboxyhemoglobin Sodium 133 L D Potassium Chloride 97.7 L Carbon Dioxide BUN 47 H Creatinine 3.8 H Glucose 345 H POC Glucose 186 H 305 H Lactic Acid Calcium Phosphorus Ferritin Total Bilirubin Direct Bilirubin AST ALT Lactate Dehydrogenase Total Creatine Kinase Troponin T Total Protein Albumin Triglycerides Arterial Blood Glucose Arterial Blood Ionized Calcium Urine pH Urine Creatinine Salicylates Acetaminophen Coronavirus (PCR) 10/03/20 10/03/20 10/03/20 16:23 16:57 22:52 WBC RBC Hgb Hct MCHC RDW Lymph % (Auto) [place] % (Auto) Lymph # (Auto) [place] # (Auto) Seg Neutrophils % Seg Neuts % (Manual) Lymphocytes % (Manual) Monocytes % (Manual) Nucleated RBC % Seg Neutrophils # Seg Neutrophils # Man Lymphocytes # (Manual) Monocytes # (Manual) PT INR D-Dimer ABG pH POC ABG pCO2 POC ABG pO2 ABG pO2 ABG HCO3 ABG Base Excess ABG Hemoglobin ABG Oxyhemoglobin ABG Sodium ABG Potassium ABG Chloride ABG Glucose Carboxyhemoglobin Sodium Potassium Chloride Carbon Dioxide BUN Creatinine Glucose POC Glucose 248 H 245 H 169 H Lactic Acid Calcium Phosphorus Ferritin Total Bilirubin Direct Bilirubin AST ALT Lactate Dehydrogenase Total Creatine Kinase Troponin T Total Protein Albumin Triglycerides Arterial Blood Glucose Arterial Blood Ionized Calcium Urine pH Urine Creatinine Salicylates Acetaminophen Coronavirus (PCR) 10/04/20 10/04/20 10/04/20 01:31 06:31 10:32 WBC RBC 2.65 L Hgb 7.8 L Hct 23.0 L MCHC RDW 18.2 H Lymph % (Auto) [place] % (Auto) Lymph # (Auto) [place] # (Auto) Seg Neutrophils % Seg Neuts % (Manual) Lymphocytes % (Manual) Monocytes % (Manual) 14.0 H Nucleated RBC % Seg Neutrophils # Seg Neutrophils # Man Lymphocytes # (Manual) Monocytes # (Manual) 1.2 H PT INR D-Dimer ABG pH POC ABG pCO2 POC ABG pO2 ABG pO2 ABG HCO3 ABG Base Excess ABG Hemoglobin ABG Oxyhemoglobin ABG Sodium ABG Potassium ABG Chloride ABG Glucose Carboxyhemoglobin Sodium 136 L Potassium Chloride Carbon Dioxide BUN 53 H Creatinine 4.6 H Glucose 184 H POC Glucose 200 H Lactic Acid Calcium Phosphorus Ferritin Total Bilirubin Direct Bilirubin AST ALT Lactate Dehydrogenase Total Creatine Kinase Troponin T Total Protein Albumin Triglycerides Arterial Blood Glucose Arterial Blood Ionized Calcium Urine pH Urine Creatinine Salicylates Acetaminophen Coronavirus (PCR)
[2020-10-04] MEDS ORDERED: NEOMY 3.5 MG/BACIT 400 UNITS/POLY B 5000 UNITS/GM OINT PACKET TP NR (14:45)
[2020-10-04] MEDS ORDERED: METOPROLOL TARTRATE 5 MG/5 ML INJ IV STA (16:22)
[2020-10-04] MEDS ORDERED: dilTIAZem/D5W 100 MG/100 ML BAG IV ONE (16:23)
[2020-10-04] MEDS ORDERED: SODIUM CHLORIDE 0.9% 500 ML 500 ML ONE (16:26)
[2020-10-04] MEDS ORDERED: dilTIAZem/D5W 100 MG/100 ML BAG IV SCH (16:30)
[2020-10-04] MEDS ORDERED: ADENOSINE 6 MG/2 ML INJ ONE ×2 (16:32)
[2020-10-04] MEDS ORDERED: AMIODARONE 150 MG in DEXTROSE 5% IN WATER 97 ML IV ONE (16:35)
[2020-10-04] MEDS ORDERED: SODIUM CHLORIDE 0.9% 500 ML 500 ML IV ONE ×2 (16:36→16:59)
[2020-10-04] MEDS ORDERED: SODIUM CHLORIDE 0.9% 1000 ML 1,000 ML ONE (16:57)
[2020-10-04] MEDS ORDERED: AMIODARONE 900 MG in DEXTROSE 5% IN WATER 482 ML IV SCH (17:00)
[2020-10-04] MEDS ORDERED: CEFEPIME/NS 1 GM/100 ML 1 GM/100 ML BAG IV SCH (18:00)
[2020-10-04] MEDS: CEFEPIME 0.5 GM in SODIUM CHLORIDE 0.9% 100 ML IV SCH (20:22)
[2020-10-05 01:26] LABS: Calcium 9.2 mg/dL (8.4-10.2)
[2020-10-05] MEDS: INSULIN LISPRO 100 UNIT/ML SUB-Q SCH ×5 (01:48→23:51)
[2020-10-05] MEDS: CEFEPIME 0.5 GM in SODIUM CHLORIDE 0.9% 100 ML IV SCH (06:29)
[2020-10-05] MEDS: hydrALAZINE 25 MG TAB PO SCH ×3 (06:29→23:50)
[2020-10-05] MEDS: LANSOPRAZOLE 30 MG SOLUTAB FEEDTUBE SCH ×2 (09:05→22:47)
[2020-10-05] MEDS: levETIRAcetam 500 MG/5 ML ORAL LIQD PO SCH ×2 (09:05→22:47)
[2020-10-05] MEDS: VALPROIC ACID 250 MG/5 ML ORAL LIQD FEEDTUBE SCH ×2 (09:05→22:46)
[2020-10-05] MEDS: MULTIVITAMINS 5 ML ORAL LIQUID PO SCH (09:05)
[2020-10-05 09:35] LABS: Bacteria,Urine 2+ /HPF (Negative); Bilirubin,Urine NEG (Negative); Blood,Urine SM (Negative); Color,Urine Yellow (Yellow); Hyaline Casts,Urine 1 /LPF; Mucus,Urine FEW /HPF; Urobilinogen,Urine < 2.0 mg/dL (<2.0)
[2020-10-05] MEDS: INSULIN GLARGINE 100 UNITS/ML SUB-Q SCH (09:41)
--- NOTE | 2020-10-05 10:21 | Progress Note ---
Assessment and Plan Impression: * Nonoliguric RYAN secondary to ATN * Severe hyperkalemia - resolved * COVID 19 PNA * s/p OOH cardiac arrest * Acute hypoxic respiratory failure * Seizure activity * Anemia * Hypernatremia Plan: * No acute need for HD today * Vascath removed yesterday in light of fevers * Rate control per cardiology * Abx per primary team * Strict I/O * Keep MAP > 65 * Dose medications for renal function * Avoid potential nephrotoxins * Prognosis is poor. Subjective Date of service: 10/05/20 Principal diagnosis: Abnormal LFTs, s/p cardiac arrest, acute kidney injury with ATN Interval history: 24h events reviewed - now in ICU Objective - Vital Signs Vital signs: Vital Signs - 12hr 10/04/20 10/04/20 10/04/20 22:25 22:30 22:46 Temperature Pulse Rate 74 75 75 Pulse Rate [ From Monitor] Respiratory 30 H 30 H Rate Blood Pressure 120/61 120/51 108/42 O2 Sat by Pulse 96 93 Oximetry O2 Sat by Pulse Oximetry [ Assessment] 10/04/20 10/04/20 10/04/20 23:00 23:15 23:28 Temperature Pulse Rate 76 76 79 Pulse Rate [ From Monitor] Respiratory 31 H 31 H 31 H Rate Blood Pressure 108/42 115/47 108/42 O2 Sat by Pulse 93 93 90 Oximetry O2 Sat by Pulse Oximetry [ Assessment] 10/04/20 10/04/20 10/04/20 23:30 23:37 23:45 Temperature Pulse Rate 78 76 76 Pulse Rate [ From Monitor] Respiratory 32 H 32 H 30 H Rate Blood Pressure 108/49 108/49 125/55 O2 Sat by Pulse 90 91 91 Oximetry O2 Sat by Pulse Oximetry [ Assessment] 10/04/20 10/05/20 10/05/20 23:57 00:00 00:15 Temperature 99.8 F H Pulse Rate 78 77 Pulse Rate [ 74 From Monitor] Respiratory 31 H 39 H Rate Blood Pressure 127/53 122/60 O2 Sat by Pulse 91 91 Oximetry O2 Sat by Pulse Oximetry [ Assessment] 10/05/20 10/05/20 10/05/20 00:30 00:46 01:00 Temperature Pulse Rate 75 75 76 Pulse Rate [ From Monitor] Respiratory 40 H 33 H 32 H Rate Blood Pressure 126/57 126/57 130/56 O2 Sat by Pulse 100 100 100 Oximetry O2 Sat by Pulse Oximetry [ Assessment] 10/05/20 10/05/20 10/05/20 01:16 01:30 01:45 Temperature Pulse Rate 75 76 76 Pulse Rate [ From Monitor] Respiratory 33 H 32 H 31 H Rate Blood Pressure 127/58 125/56 125/54 O2 Sat by Pulse 100 99 99 Oximetry O2 Sat by Pulse Oximetry [ Assessment] 10/05/20 10/05/20 10/05/20 02:00 02:15 02:30 Temperature Pulse Rate 74 77 77 Pulse Rate [ From Monitor] Respiratory 31 H 30 H 35 H Rate Blood Pressure 125/57 125/53 122/53 O2 Sat by Pulse 99 98 100 Oximetry O2 Sat by Pulse Oximetry [ Assessment] 10/05/20 10/05/20 10/05/20 02:45 03:00 03:15 Temperature Pulse Rate 77 75 74 Pulse Rate [ From Monitor] Respiratory 31 H 32 H 31 H Rate Blood Pressure 119/54 126/55 120/54 O2 Sat by Pulse 100 100 100 Oximetry O2 Sat by Pulse Oximetry [ Assessment] 10/05/20 10/05/20 10/05/20 03:30 03:46 03:52 Temperature 100.1 F H Pulse Rate 72 75 Pulse Rate [ From Monitor] Respiratory 31 H 30 H Rate Blood Pressure 131/51 123/50 O2 Sat by Pulse 100 100 Oximetry O2 Sat by Pulse Oximetry [ Assessment] 10/05/20 10/05/20 10/05/20 04:00 04:15 04:30 Temperature Pulse Rate 74 74 74 Pulse Rate [ From Monitor] Respiratory 32 H 29 H 31 H Rate Blood Pressure 120/51 122/50 121/52 O2 Sat by Pulse 100 100 100 Oximetry O2 Sat by Pulse Oximetry [ Assessment] 10/05/20 10/05/20 10/05/20 04:39 04:46 05:00 Temperature Pulse Rate 75 77 Pulse Rate [ 78 From Monitor] Respiratory 37 H 30 H 39 H Rate Blood Pressure 124/47 117/48 O2 Sat by Pulse 99 99 99 Oximetry O2 Sat by Pulse Oximetry [ Assessment] 10/05/20 10/05/20 10/05/20 05:03 05:15 05:30 Temperature Pulse Rate 76 74 Pulse Rate [ From Monitor] Respiratory 38 H 32 H Rate Blood Pressure 108/53 125/56 O2 Sat by Pulse 98 99 Oximetry O2 Sat by Pulse 98 Oximetry [ Assessment] 10/05/20 10/05/20 10/05/20 05:45 06:00 06:16 Temperature Pulse Rate 73 74 72 Pulse Rate [ From Monitor] Respiratory 31 H 30 H 30 H Rate Blood Pressure 128/51 124/51 125/51 O2 Sat by Pulse 99 98 100 Oximetry O2 Sat by Pulse Oximetry [ Assessment] 10/05/20 10/05/20 10/05/20 06:30 06:45 07:00 Temperature Pulse Rate 75 74 74 Pulse Rate [ From Monitor] Respiratory 31 H 30 H 31 H Rate Blood Pressure 126/56 134/56 126/49 O2 Sat by Pulse 98 99 100 Oximetry O2 Sat by Pulse Oximetry [ Assessment] 10/05/20 10/05/20 10/05/20 07:15 07:30 07:45 Temperature Pulse Rate 73 73 73 Pulse Rate [ From Monitor] Respiratory 31 H 29 H 29 H Rate Blood Pressure 128/56 133/55 125/55 O2 Sat by Pulse 99 99 100 Oximetry O2 Sat by Pulse Oximetry [ Assessment] 10/05/20 10/05/20 10/05/20 08:00 08:16 08:30 Temperature Pulse Rate 74 74 74 Pulse Rate [ 78 From Monitor] Respiratory 28 H 30 H 28 H Rate Blood Pressure 137/57 131/58 130/58 O2 Sat by Pulse 98 100 100 Oximetry O2 Sat by Pulse Oximetry [ Assessment] 10/05/20 10/05/20 10/05/20 08:45 09:00 09:16 Temperature Pulse Rate 74 72 74 Pulse Rate [ From Monitor] Respiratory 29 H 30 H 32 H Rate Blood Pressure 131/58 139/54 143/60 O2 Sat by Pulse 100 100 100 Oximetry O2 Sat by Pulse Oximetry [ Assessment] 10/05/20 09:30 Temperature Pulse Rate 75 Pulse Rate [ From Monitor] Respiratory 27 H Rate Blood Pressure 136/55 O2 Sat by Pulse 100 Oximetry O2 Sat by Pulse Oximetry [ Assessment] - General Appearance General appearance: well-developed, well-nourished EENT: ATNC Respiratory: Present: Clear to Ascultation Cardiology: regular, S1S2 Gastrointestinal: normal, no tenderness, no distended Integumentary: no rash, warm and dry Neurologic: other (nonresponsive) Musculoskeletal: other (no edema) - Lab 10/06/20 10:12 10/06/20 10:12 Most recent lab results ABG pH 7.468 (7.320-7.450) H 10/02/20 10:16 ABG pCO2 33.4 mm Hg 09/11/20 05:40 ABG pO2 112.1 mm Hg (80.0-90.0) H 09/11/20 05:40 ABG HCO3 28.1 mmol/L (20.0-26.0) H 09/11/20 05:40 ABG O2 Saturation 98.4 % (95.0-99.0) 09/11/20 05:40 Calcium 9.2 mg/dL (8.4-10.2) 10/05/20 00:19 Phosphorus 8.00 mg/dL (2.5-4.5) H 09/08/20 12:02 Magnesium 1.80 mg/dL (1.7-2.3) 09/08/20 12:02 Urine Creatinine 182.4 mg/dL (0.1-20.0) H 09/08/20 Unknown Urine Sodium 40 mmol/L 09/08/20 Unknown Medications & Allergies - Medications Allergies/Adverse Reactions: Allergies No Known Allergies Allergy (Verified 09/21/20 21:00) Verified with , no known drug allergies. Home Medications: Home Medications Medication Instructions Recorded Confirmed Last Taken Type Albuterol Sulfate 60 mcg IH PRN 09/11/20 09/11/20 Unknown History Cholecalciferol (Vitamin D3) 25 tab PO DAILY 09/11/20 09/11/20 Unknown History Cozaar 25 tab PO DAILY 09/11/20 09/11/20 Unknown History HumaLOG 14 unit SQ AC 09/11/20 09/11/20 Unknown History Hydralazine HCl 50 tab PO TID 09/11/20 09/11/20 Unknown History Isosorbide Dinitrate 30 mg PO DAILY 09/11/20 09/11/20 Unknown History Lantus VIAL 54 units SQ HS 09/11/20 09/11/20 Unknown History Lasix 20 tab PO DAILY 09/11/20 09/11/20 Unknown History Nifedipine 30 tab PO DAILY 09/11/20 09/11/20 Unknown History Active Medications: Generic Name Dose Route Start Last Admin Trade Name Freq PRN Reason Stop Dose Admin Acetaminophen 650 mg 10/02/20 09:00 10/04/20 05:10 Acetaminophen 325 Mg/10.15 Ml Oral Liqd Unit Dose PO 650 mg Q4HR PRN Administration Non Cardiac Pain or Temp>100.5 Lipase/Protease/Amylase 1 each 09/09/20 09:40 Lipase 10,500/Protease 25,000/Amylase 43,750 (Units) Dr Armenta FEEDTUBE PRN PRN For Clogged Feeding Tube Hydralazine HCl 50 mg 09/23/20 14:00 10/05/20 06:29 Hydralazine 25 Mg Tab PO 50 mg Q8HR TAYLOR Administration Sodium Chloride 100 mls @ 999 mls/hr 09/09/20 13:36 Nacl 0.9% IV JAYJAY PRN Hypotension Diltiazem HCl 100 mg in 100 mls @ 10 mls/hr 10/04/20 16:30 Cardizem/D5w 100mg/100ml IV DIRECT TAYLOR Amiodarone HCl 900 mg/ 500 mls @ 33.333 mls/hr 10/04/20 17:00 10/04/20 17:01 Dextrose IV 1 mg/min DIRECT TAYLOR 33.333 mls/hr Administration Protocol 1 MG/MIN Cefepime HCl 2 gm in 100 mls @ 200 mls/hr 10/05/20 22:00 Cefepime/Ns 2 Gm/100 Ml IV Q24H TAYLOR Protocol Insulin Glargine 25 units 10/03/20 10:00 10/05/20 09:41 Insulin Glargine 100 Units/Ml SUB-Q 25 units DAILY TAYLOR Administration Insulin Human Lispro 0 unit 09/12/20 12:00 10/05/20 06:29 Insulin Lispro 100 Unit/Ml SUB-Q 4 unit Q6HR TAYLOR Administration Protocol Lansoprazole 30 mg 09/11/20 11:00 10/05/20 09:05 Lansoprazole 30 Mg Solutab FEEDTUBE 30 mg BID TAYLOR Administration Levetiracetam 1,500 mg 09/28/20 10:00 10/05/20 09:05 Levetiracetam 500 Mg/5 Ml Oral Liqd PO 1,500 mg BID TAYLOR Administration Multivitamins 5 ml 09/09/20 12:00 10/05/20 09:05 Multivitamins 5 Ml Oral Liquid PO 5 ml QDAY TAYLOR Administration Ondansetron HCl 4 mg 09/07/20 17:55 09/19/20 04:00 Ondansetron 4 Mg/2 Ml Inj IV 4 mg Q8H PRN Administration Nausea And Vomiting Senna/Docusate Sodium 2 tab 09/20/20 11:00 Sennosides/Docusate Sodium 8.6/50 Mg Tab PO BID PRN Laxative Effect Simple Syrup 15 ml 09/09/20 09:40 09/17/20 17:43 Simple Syrup 15 Ml FEEDTUBE 15 ml PRN PRN Administration Hypoglycemia Simple Syrup 30 ml 09/09/20 09:40 Simple Syrup 15 Ml FEEDTUBE PRN PRN Hypoglycemia Sodium Bicarbonate 325 mg 09/09/20 09:40 Sodium Bicarbonate 325 Mg Tab FEEDTUBE PRN PRN For Clogged Feeding Tube Sodium Chloride 10 ml 09/07/20 22:00 10/05/20 09:41 Sodium Chloride 0.9% 10 Ml Flush Syringe IV 10 ml BID TAYLOR Administration Sodium Chloride 10 ml 09/07/20 17:55 Sodium Chloride 0.9% 10 Ml Flush Syringe IV PRN PRN LINE FLUSH Valproic Acid 1,000 mg 09/28/20 10:00 10/05/20 09:05 Valproic Acid 250 Mg/5 Ml Oral Liqd FEEDTUBE 1,000 mg BID TAYLOR Administration
[2020-10-05] MEDS: AMIODARONE 200 MG TAB PO SCH ×2 (12:55→22:47)
--- NOTE | 2020-10-05 13:14 | Progress Note ---
Assessment and Plan 65 y/o male with out of hospital cardiac arrest now sedated on ativan for possible seizures. 10/05/20: Pulm status is unchanged. Wean Flow back down to 5. Will see PRN 10/04/20: Increase from 5 to 8 in flow. No documentation as to why. Will continue to monitor. If flow continues to increase, suggest repeat CXR. 10/03/20: Continue trach care. Stable pulm status. Will see PRN. 10/02/20: Will transfer out to floor. CM working on placement. 09/29/20: Please continue daily T-piece trials as tolerated over the weekend. Goals is to do 24 hours of T-piece. Once done stable for transfer out of the unit. Hold BP meds for now. MOnitor for fever cure or changes clinically other than change in blood pressure. Increased BID lantus to 20. May need more but can reassess tomorrow. My partner is covering this weekend. 09/28/20: T-piece again today. Will place official order to let patient stay on T-piece and to call if changes occur. HD MWF per renal. Poor prognosis for cognitive recovery. 09/27/20: T-piece trial again today. Will attempt to go 24 hours. Still needs HD per renal. This will be a barrier to discharge. CM knows and will discuss with administration. 09/26/20: Will do T-piece today. If tolerates the next 24 hours will move out of ICU. : PSV for the next 24 hours if tolerates. Restart feeds today at 10. Continue reglan. If tomorrow, same issues. Will change feeds, obtain GI consu lt. Continue antiepileptic therapy. 09/24/20: Continue Daily PSV, maybe ready for 24 hour trial. Antiepleptic therapy. Hold feeds today, suggest GI consult. Will discuss with Dietary on round tomorrow. 09/23/20: Daily PSV trials multiple times a day if needed. Antiepileptic therapy. Resume tube feeds today. 09/22/20: PSV trial today as tolerated and every day from this day forward. NO sedation. Continue antiepileptic therapy. HD per renal. Still having issues with feeds. Will contact to see if he has any food allergies. Prognosis still remains very poor. WIll start some promotility agents as well. 09/21/20: Trach and peg today. Continue with vent weaning. Hopeful we can wean him off the vent once trached. Only place [facility] will cover is SNF. Prognosis remains very poor for recovery of functional state. 09/20/20: Placed consult to surgery now that COVID is negative. However, patient is morbidly obese and his surgery will likely be a complicated one especially with peg placement. Await surgery eval and recs. HD per renal. Continue daily PSV trials, mental status precludes extubation traditionally but maybe able to wean off vent with stable airway such as trach. [facility] has denied transfer and placement requests at this time based on CM notes. Prognosis is very poor, but after speaking with neurology and neurosurgery, patient wishes to continue aggressive measures. 09/19/20: Ordered repeat COVID as surgery will not do trach and peg until negative status. Continue supportive measures. 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 09/18/20: Unable to fit in MRI. Repeat CT showed improvement in edema but no clinical response is seen with this. Will continue Antiepileptic therapy. If wishes to proceed, will need trach and peg. Not sure if he would be candidate for PEG given his size but will ask surgery. Will need repeat COVID test prior to surgery. 09/15/20: Order MRI brain without contrast. Per surgery this will help to add more in regards to prognosis. Continue Valproic Acid and Keppra for seizure therapy. HD going now per renal. Overall prognosis remains guarded to poor. Please reach out to over the weekend to update her as I am not rounding this weekend, ,my partner will be covering. 09/14/20: Will load with valproic acid and then start to wean Diprovan. Spoke with today, very tearful on the phone. Explained to that Neurosurgery would come and eval tonight but not a candidate for the other therapies she asked about since his edema is related to anoxic injury. Very very poor prognosis. 09/13/20: Per current neuro available, the neurologist from yesterday will call today. EEG is nonspecific but given CT of head findings consistent with anoxic encephalopathy, brain injury. As stated in neuro note, overall prognosis is very poor. Will continue to wean down diprovan to see if patient's seizures have been controlled with current Keppra dosing. Will call once she has spoken to neuro to get her thoughts on the next steps. (trach and peg, vs hosp ice as well as code status). Very very poor prognosis. 09/12/20: Long discussion with this am. Given recent head CT results, prognosis for full functional recovery is very POOR and neurology agrees. They will see in consult today. I have spoken to about AND and she is going to discuss with the family. The neurologist has stated they will reach out to the today. I am going to attempt to wean the ativan off and then start to wean the diprovan as long as no seizure activity is seen. Patient is now bradycardic, likely secondary to neuro state. I hope that he is not about to herniate. Patient is also like in Neurogenic DI given large urine out put volume. Very very poor prognosis. Continue supportive measures. 09/11/20: Will increase Keppra to 1500 BID given patient size. Continue Diprovan drip. Getting EEG today. HD per renal. Needs neurology consult however if patient is in status, needs to be transferred to an institution that can provide continuous EEG monitoring. Overll prognosis is very guarded to poor. Have not spoken to yet today. 09/10/20: Loaded with keppra and will start on Keppra BID. Needs EEG on therapy as well as OFF. If patient is in status, needs transfer to a location with continuous EEG capabilities. FiO2 has been weaned back down and is now at 60%, sats in the high 90's. HD per renal. Coags improving. Overall prognosis is guarded to poor. Spoke with on phone yesterday. Consult neurology tomorrow as not available on the weekend. Suggest checking for antibodies as he may be a candidate for convalsescent plasma. Per the , he was diagnosed with COVID [facility] Remains positive now with multisystem organ failure. Explained to that outcome may not be good but need more time to assess. 09/09/20: EEG ordered on yesterday but not done. If done not read. Continue diprovan for now until EEG can be done or interpreted. State Coags but given his oozing from his vascath, will give Vitamin K and FFP. Patient is covid positive so agree with steroids. Not a candidate for remdesivir. Need to check for antibodies, may be a candidate for convalescent plasma. HD per renal. Given improvement in pH will stop bicarb drip. Feed patient. 1. Stop sedation 2. EEG 3. Needs neuro consult. 4. Art line placement 5. Stat repeat of labs, if renal function is truly that bad, will need renal consult. 6. Follow up COVID testing 7. Likely needs echo 8. Will place on bicarb drip. CCT 31 minutes. Subjective Date of service: 10/05/20 Principal diagnosis: Abnormal LFTs, s/p cardiac arrest, acute kidney injury with ATN Interval history: transferred to [facility] for afib with RVR. Now back in sinus with transfer orders to floor. Objective Vital Signs - 12hr 10/05/20 10/05/20 10/05/20 01:16 01:30 01:45 Temperature Pulse Rate 75 76 76 Pulse Rate [ From Monitor] Respiratory 33 H 32 H 31 H Rate Blood Pressure 127/58 125/56 125/54 O2 Sat by Pulse 100 99 99 Oximetry O2 Sat by Pulse Oximetry [ Assessment] 10/05/20 10/05/20 10/05/20 02:00 02:15 02:30 Temperature Pulse Rate 74 77 77 Pulse Rate [ From Monitor] Respiratory 31 H 30 H 35 H Rate Blood Pressure 125/57 125/53 122/53 O2 Sat by Pulse 99 98 100 Oximetry O2 Sat by Pulse Oximetry [ Assessment] 10/05/20 10/05/20 10/05/20 02:45 03:00 03:15 Temperature Pulse Rate 77 75 74 Pulse Rate [ From Monitor] Respiratory 31 H 32 H 31 H Rate Blood Pressure 119/54 126/55 120/54 O2 Sat by Pulse 100 100 100 Oximetry O2 Sat by Pulse Oximetry [ Assessment] 10/05/20 10/05/20 10/05/20 03:30 03:46 03:52 Temperature 100.1 F H Pulse Rate 72 75 Pulse Rate [ From Monitor] Respiratory 31 H 30 H Rate Blood Pressure 131/51 123/50 O2 Sat by Pulse 100 100 Oximetry O2 Sat by Pulse Oximetry [ Assessment] 10/05/20 10/05/20 10/05/20 04:00 04:15 04:30 Temperature Pulse Rate 74 74 74 Pulse Rate [ From Monitor] Respiratory 32 H 29 H 31 H Rate Blood Pressure 120/51 122/50 121/52 O2 Sat by Pulse 100 100 100 Oximetry O2 Sat by Pulse Oximetry [ Assessment] 10/05/20 10/05/20 10/05/20 04:39 04:46 05:00 Temperature Pulse Rate 75 77 Pulse Rate [ 78 From Monitor] Respiratory 37 H 30 H 39 H Rate Blood Pressure 124/47 117/48 O2 Sat by Pulse 99 99 99 Oximetry O2 Sat by Pulse Oximetry [ Assessment] 10/05/20 10/05/20 10/05/20 05:03 05:15 05:30 Temperature Pulse Rate 76 74 Pulse Rate [ From Monitor] Respiratory 38 H 32 H Rate Blood Pressure 108/53 125/56 O2 Sat by Pulse 98 99 Oximetry O2 Sat by Pulse 98 Oximetry [ Assessment] 10/05/20 10/05/20 10/05/20 05:45 06:00 06:16 Temperature Pulse Rate 73 74 72 Pulse Rate [ From Monitor] Respiratory 31 H 30 H 30 H Rate Blood Pressure 128/51 124/51 125/51 O2 Sat by Pulse 99 98 100 Oximetry O2 Sat by Pulse Oximetry [ Assessment] 10/05/20 10/05/20 10/05/20 06:30 06:45 07:00 Temperature Pulse Rate 75 74 74 Pulse Rate [ From Monitor] Respiratory 31 H 30 H 31 H Rate Blood Pressure 126/56 134/56 126/49 O2 Sat by Pulse 98 99 100 Oximetry O2 Sat by Pulse Oximetry [ Assessment] 10/05/20 10/05/20 10/05/20 07:15 07:30 07:45 Temperature Pulse Rate 73 73 73 Pulse Rate [ From Monitor] Respiratory 31 H 29 H 29 H Rate Blood Pressure 128/56 133/55 125/55 O2 Sat by Pulse 99 99 100 Oximetry O2 Sat by Pulse Oximetry [ Assessment] 10/05/20 10/05/20 10/05/20 08:00 08:16 08:30 Temperature Pulse Rate 74 74 74 Pulse Rate [ 78 From Monitor] Respiratory 28 H 30 H 28 H Rate Blood Pressure 137/57 131/58 130/58 O2 Sat by Pulse 98 100 100 Oximetry O2 Sat by Pulse Oximetry [ Assessment] 10/05/20 10/05/20 10/05/20 08:45 09:00 09:16 Temperature Pulse Rate 74 72 74 Pulse Rate [ From Monitor] Respiratory 29 H 30 H 32 H Rate Blood Pressure 131/58 139/54 143/60 O2 Sat by Pulse 100 100 100 Oximetry O2 Sat by Pulse Oximetry [ Assessment] 10/05/20 10/05/20 10/05/20 09:30 09:46 10:00 Temperature Pulse Rate 75 76 75 Pulse Rate [ From Monitor] Respiratory 27 H 30 H 28 H Rate Blood Pressure 136/55 130/57 141/60 O2 Sat by Pulse 100 99 100 Oximetry O2 Sat by Pulse Oximetry [ Assessment] 10/05/20 10/05/20 10/05/20 10:16 10:22 10:23 Temperature Pulse Rate 74 Pulse Rate [ From Monitor] Respiratory 29 H Rate Blood Pressure 135/58 O2 Sat by Pulse 100 98 Oximetry O2 Sat by Pulse 98 Oximetry [ Assessment] 10/05/20 10/05/20 10/05/20 10:30 10:46 11:00 Temperature Pulse Rate 76 74 77 Pulse Rate [ From Monitor] Respiratory 35 H 37 H 31 H Rate Blood Pressure 131/57 138/55 147/58 O2 Sat by Pulse 100 100 99 Oximetry O2 Sat by Pulse Oximetry [ Assessment] 10/05/20 10/05/20 10/05/20 11:16 11:30 11:46 Temperature Pulse Rate 77 75 75 Pulse Rate [ From Monitor] Respiratory 29 H 30 H 29 H Rate Blood Pressure 137/55 137/60 137/59 O2 Sat by Pulse 98 97 98 Oximetry O2 Sat by Pulse Oximetry [ Assessment] 10/05/20 12:00 Temperature Pulse Rate 74 Pulse Rate [ From Monitor] Respiratory 31 H Rate Blood Pressure 128/59 O2 Sat by Pulse 100 Oximetry O2 Sat by Pulse Oximetry [ Assessment] Constitutional: comatose, other (morbidly obese t piece sp trach) Eyes: non-icteric ENT: other (tpiece) Neck: supple Effort: normal Ascultation: Bilateral: diminished breath sounds Percussion: Bilateral: not dull Cardiovascular: other (bradycardic) Gastrointestinal: soft Neurologic: other CBC and BMP: 10/04/20 10:32 10/05/20 00:19 ABG, PT/INR, D-dimer: ABG ABG pH 7.468 (7.320-7.450) H 10/02/20 10:16 POC ABG pCO2 37.1 mmHg (32.0-48.0) 10/02/20 10:16 ABG pCO2 33.4 mm Hg 09/11/20 05:40 POC ABG pO2 72.9 mmHg (83-108) L 10/02/20 10:16 ABG pO2 112.1 mm Hg (80.0-90.0) H 09/11/20 05:40 POC ABG HCO3 26.3 10/02/20 10:16 ABG O2 Saturation 98.4 % (95.0-99.0) 09/11/20 05:40 PT/INR, D-dimer PT 16.1 Sec. (12.2-14.9) H 09/12/20 04:00 INR 1.31 (0.87-1.13) H 09/12/20 04:00 D-Dimer 8315.85 ng/mlDDU (0-234) H 09/07/20 14:00 Abnormal lab findings: Abnormal Labs 09/07/20 09/07/20 09/07/20 13:08 14:00 14:00 WBC 15.7 H RBC Hgb 10.2 L Hct 32.5 L MCHC 31 L RDW 17.5 H Lymph % (Auto) Kane % (Auto) Lymph # (Auto) Kane # (Auto) Seg Neutrophils % Seg Neuts % (Manual) 72.0 H Lymphocytes % (Manual) Monocytes % (Manual) 8.0 H Nucleated RBC % Seg Neutrophils # Seg Neutrophils # Man 11.3 H Lymphocytes # (Manual) Monocytes # (Manual) 1.3 H PT INR D-Dimer 8315.85 H ABG pH POC ABG pCO2 POC ABG pO2 ABG pO2 ABG HCO3 ABG Base Excess ABG Hemoglobin ABG Oxyhemoglobin ABG Sodium ABG Potassium ABG Chloride ABG Glucose Carboxyhemoglobin Sodium Potassium Chloride Carbon Dioxide BUN Creatinine Glucose POC Glucose Lactic Acid Calcium Phosphorus Ferritin Total Bilirubin Direct Bilirubin AST ALT Lactate Dehydrogenase Total Creatine Kinase Troponin T Total Protein Albumin Triglycerides Arterial Blood Glucose Arterial Blood Ionized Calcium Urine pH 8.0 H Urine WBC (Auto) Urine Creatinine Salicylates Acetaminophen Coronavirus (PCR) 09/07/20 09/07/20 09/07/20 14:00 14:00 14:00 WBC RBC Hgb Hct MCHC RDW Lymph % (Auto) Kane % (Auto) Lymph # (Auto) Kane # (Auto) Seg Neutrophils % Seg Neuts % (Manual) Lymphocytes % (Manual) Monocytes % (Manual) Nucleated RBC % Seg Neutrophils # Seg Neutrophils # Man Lymphocytes # (Manual) Monocytes # (Manual) PT INR D-Dimer ABG pH POC ABG pCO2 POC ABG pO2 ABG pO2 ABG HCO3 ABG Base Excess ABG Hemoglobin ABG Oxyhemoglobin ABG Sodium ABG Potassium ABG Chloride ABG Glucose Carboxyhemoglobin Sodium Potassium Chloride Carbon Dioxide BUN Creatinine Glucose POC Glucose Lactic Acid 4.30 H* Calcium Phosphorus Ferritin > 2000.0 H Total Bilirubin Direct Bilirubin AST ALT Lactate Dehydrogenase 882 H Total Creatine Kinase 477 H Troponin T 0.076 H Total Protein Albumin Triglycerides Arterial Blood Glucose Arterial Blood Ionized Calcium Urine pH Urine WBC (Auto) Urine Creatinine Salicylates Acetaminophen Coronavirus (PCR) 09/07/20 09/07/20 09/07/20 14:00 14:00 14:00 WBC RBC Hgb Hct MCHC RDW Lymph % (Auto) Kane % (Auto) Lymph # (Auto) Kane # (Auto) Seg Neutrophils % Seg Neuts % (Manual) Lymphocytes % (Manual) Monocytes % (Manual) Nucleated RBC % Seg Neutrophils # Seg Neutrophils # Man Lymphocytes # (Manual) Monocytes # (Manual) PT INR D-Dimer ABG pH POC ABG pCO2 POC ABG pO2 ABG pO2 ABG HCO3 ABG Base Excess ABG Hemoglobin ABG Oxyhemoglobin ABG Sodium ABG Potassium ABG Chloride ABG Glucose Carboxyhemoglobin Sodium Potassium Chloride Carbon Dioxide BUN Creatinine 1.8 H Glucose POC Glucose Lactic Acid Calcium Phosphorus Ferritin Total Bilirubin Direct Bilirubin AST 310 H ALT 339 H Lactate Dehydrogenase Total Creatine Kinase Troponin T Total Protein Albumin 3.6 L Triglycerides Arterial Blood Glucose Arterial Blood Ionized Calcium Urine pH Urine WBC (Auto) Urine Creatinine Salicylates < 0.3 L Acetaminophen 5.0 L Coronavirus (PCR) 09/07/20 09/08/20 09/08/20 14:26 04:00 04:17 WBC RBC Hgb Hct MCHC RDW Lymph % (Auto) Kane % (Auto) Lymph # (Auto) Kane # (Auto) Seg Neutrophils % Seg Neuts % (Manual) Lymphocytes % (Manual) Monocytes % (Manual) Nucleated RBC % Seg Neutrophils # Seg Neutrophils # Man Lymphocytes # (Manual) Monocytes # (Manual) PT INR D-Dimer ABG pH 7.037 L 7.095 L POC ABG pCO2 92.4 H 68.0 H POC ABG pO2 130.8 H 43.5 L ABG pO2 ABG HCO3 ABG Base Excess ABG Hemoglobin 11.3 L 10.6 L ABG Oxyhemoglobin 70.8 L ABG Sodium ABG Potassium 7.0 H ABG Chloride 108.0 H ABG Glucose Carboxyhemoglobin 0.3 L Sodium Potassium 8.4 H* D Chloride Carbon Dioxide 17 L D BUN 38 H Creatinine 3.9 H D Glucose POC Glucose Lactic Acid Calcium 7.7 L D Phosphorus Ferritin Total Bilirubin Direct Bilirubin AST ALT Lactate Dehydrogenase Total Creatine Kinase Troponin T Total Protein Albumin Triglycerides Arterial Blood Glucose Arterial Blood Ionized Calcium 4.5 L Urine pH Urine WBC (Auto) Urine Creatinine Salicylates Acetaminophen Coronavirus (PCR) 09/08/20 09/08/20 09/08/20 05:00 05:25 12:02 WBC RBC Hgb Hct MCHC RDW Lymph % (Auto) Kane % (Auto) Lymph # (Auto) Kane # (Auto) Seg Neutrophils % Seg Neuts % (Manual) Lymphocytes % (Manual) Monocytes % (Manual) Nucleated RBC % Seg Neutrophils # Seg Neutrophils # Man Lymphocytes # (Manual) Monocytes # (Manual) PT INR D-Dimer ABG pH 7.088 L POC ABG pCO2 69.1 H POC ABG pO2 35.2 L ABG pO2 ABG HCO3 ABG Base Excess ABG Hemoglobin 10.9 L ABG Oxyhemoglobin 57.1 L ABG Sodium ABG Potassium 7.0 H ABG Chloride 108.0 H ABG Glucose Carboxyhemoglobin 0.4 L Sodium Potassium 8.1 H* Chloride Carbon Dioxide 17 L BUN 38 H Creatinine 3.7 H Glucose POC Glucose Lactic Acid Calcium 8.0 L Phosphorus 8.00 H Ferritin Total Bilirubin Direct Bilirubin 0.5 H AST 3696 H ALT 3331 H Lactate Dehydrogenase Total Creatine Kinase Troponin T Total Protein Albumin 3.5 L Triglycerides Arterial Blood Glucose Arterial Blood Ionized Calcium 4.4 L Urine pH Urine WBC (Auto) Urine Creatinine Salicylates Acetaminophen Coronavirus (PCR) 09/08/20 09/08/20 09/08/20 16:31 22:36 Unknown WBC RBC Hgb Hct MCHC RDW Lymph % (Auto) Kane % (Auto) Lymph # (Auto) Kane # (Auto) Seg Neutrophils % Seg Neuts % (Manual) Lymphocytes % (Manual) Monocytes % (Manual) Nucleated RBC % Seg Neutrophils # Seg Neutrophils # Man Lymphocytes # (Manual) Monocytes # (Manual) PT INR D-Dimer ABG pH POC ABG pCO2 POC ABG pO2 ABG pO2 ABG HCO3 ABG Base Excess ABG Hemoglobin ABG Oxyhemoglobin ABG Sodium ABG Potassium ABG Chloride ABG Glucose Carboxyhemoglobin Sodium Potassium 5.3 H D Chloride Carbon Dioxide BUN Creatinine Glucose POC Glucose 158 H Lactic Acid Calcium Phosphorus Ferritin Total Bilirubin Direct Bilirubin AST ALT Lactate Dehydrogenase Total Creatine Kinase Troponin T Total Protein Albumin Triglycerides Arterial Blood Glucose Arterial Blood Ionized Calcium Urine pH Urine WBC (Auto) Urine Creatinine Salicylates Acetaminophen Coronavirus (PCR) Positive A 09/08/20 09/08/20 09/08/20 Unknown Unknown Unknown WBC 18.4 H RBC Hgb 10.1 L Hct 32.0 L MCHC RDW 18.2 H Lymph % (Auto) Kane % (Auto) Lymph # (Auto) Kane # (Auto) Seg Neutrophils % Seg Neuts % (Manual) 81.0 H Lymphocytes % (Manual) 2.0 L Monocytes % (Manual) Nucleated RBC % 1.0 H Seg Neutrophils # Seg Neutrophils # Man 14.9 H Lymphocytes # (Manual) 0.4 L Monocytes # (Manual) 1.1 H PT 21.2 H INR 1.83 H D-Dimer ABG pH POC ABG pCO2 POC ABG pO2 ABG pO2 ABG HCO3 ABG Base Excess ABG Hemoglobin ABG Oxyhemoglobin ABG Sodium ABG Potassium ABG Chloride ABG Glucose Carboxyhemoglobin Sodium Potassium Chloride Carbon Dioxide BUN Creatinine Glucose POC Glucose Lactic Acid Calcium Phosphorus Ferritin Total Bilirubin Direct Bilirubin AST ALT Lactate Dehydrogenase Total Creatine Kinase Troponin T Total Protein Albumin Triglycerides Arterial Blood Glucose Arterial Blood Ionized Calcium Urine pH Urine WBC (Auto) Urine Creatinine 182.4 H Salicylates Acetaminophen Coronavirus (PCR) 09/09/20 09/09/20 09/09/20 03:14 04:20 04:20 WBC 16.3 H RBC 3.12 L Hgb 8.6 L Hct 26.8 L MCHC RDW 18.2 H Lymph % (Auto) 6.3 L Kane % (Auto) 8.8 H Lymph # (Auto) 1.0 L Kane # (Auto) 1.4 H Seg Neutrophils % 84.5 H Seg Neuts % (Manual) Lymphocytes % (Manual) Monocytes % (Manual) Nucleated RBC % Seg Neutrophils # 13.7 H Seg Neutrophils # Man Lymphocytes # (Manual) Monocytes # (Manual) PT INR D-Dimer ABG pH POC ABG pCO2 POC ABG pO2 148.5 H ABG pO2 ABG HCO3 ABG Base Excess ABG Hemoglobin 9.4 L ABG Oxyhemoglobin 98.8 H ABG Sodium 134.8 L ABG Potassium 5.0 H ABG Chloride ABG Glucose 222 H Carboxyhemoglobin 0.1 L Sodium Potassium 5.2 H Chloride Carbon Dioxide BUN 47 H Creatinine 4.3 H Glucose 211 H POC Glucose Lactic Acid Calcium 7.4 L Phosphorus Ferritin Total Bilirubin [place] 32451 H ALT 6206 H Lactate Dehydrogenase Total Creatine Kinase Troponin T Total Protein 5.6 L Albumin 3.0 L Triglycerides Arterial Blood Glucose 222 H Arterial Blood Ionized Calcium 3.8 L Urine pH Urine WBC (Auto) Urine Creatinine Salicylates Acetaminophen Coronavirus (PCR) 09/09/20 09/09/20 09/09/20 10:00 12:23 18:22 WBC RBC Hgb Hct MCHC RDW Lymph % (Auto) Kane % (Auto) Lymph # (Auto) Kane # (Auto) Seg Neutrophils % Seg Neuts % (Manual) Lymphocytes % (Manual) Monocytes % (Manual) Nucleated RBC % Seg Neutrophils # Seg Neutrophils # Man Lymphocytes # (Manual) Monocytes # (Manual) PT 21.7 H INR 1.90 H D-Dimer ABG pH POC ABG pCO2 POC ABG pO2 ABG pO2 ABG HCO3 ABG Base Excess ABG Hemoglobin ABG Oxyhemoglobin ABG Sodium ABG Potassium ABG Chloride ABG Glucose Carboxyhemoglobin Sodium Potassium Chloride Carbon Dioxide BUN Creatinine Glucose POC Glucose 216 H 211 H Lactic Acid Calcium Phosphorus Ferritin Total Bilirubin Direct Bilirubin AST ALT Lactate Dehydrogenase Total Creatine Kinase Troponin T Total Protein Albumin Triglycerides Arterial Blood Glucose Arterial Blood Ionized Calcium Urine pH Urine WBC (Auto) Urine Creatinine Salicylates Acetaminophen Coronavirus (PCR) 09/10/20 09/10/20 09/10/20 04:00 04:05 04:05 WBC 15.0 H RBC 3.06 L Hgb 8.6 L Hct 25.8 L MCHC RDW 18.0 H Lymph % (Auto) Kane % (Auto) Lymph # (Auto) Kane # (Auto) Seg Neutrophils % Seg Neuts % (Manual) 86.0 H Lymphocytes % (Manual) 6.0 L Monocytes % (Manual) 8.0 H Nucleated RBC % Seg Neutrophils # Seg Neutrophils # Man 12.9 H Lymphocytes # (Manual) 0.9 L Monocytes # (Manual) 1.2 H PT 18.4 H INR 1.54 H D-Dimer ABG pH POC ABG pCO2 POC ABG pO2 ABG pO2 ABG HCO3 ABG Base Excess ABG Hemoglobin ABG Oxyhemoglobin ABG Sodium ABG Potassium ABG Chloride ABG Glucose Carboxyhemoglobin Sodium 134 L Potassium Chloride 93.7 L Carbon Dioxide BUN 46 H Creatinine 3.6 H Glucose 275 H POC Glucose Lactic Acid Calcium 7.7 L Phosphorus Ferritin Total Bilirubin 1.30 H Direct Bilirubin AST 5899 H ALT 6440 H Lactate Dehydrogenase Total Creatine Kinase Troponin T Total Protein 5.9 L Albumin 3.3 L Triglycerides Arterial Blood Glucose Arterial Blood Ionized Calcium Urine pH Urine WBC (Auto) Urine Creatinine Salicylates Acetaminophen Coronavirus (PCR) 09/10/20 09/10/20 09/10/20 04:35 12:06 17:42 WBC RBC Hgb Hct MCHC RDW Lymph % (Auto) Kane % (Auto) Lymph # (Auto) Kane # (Auto) Seg Neutrophils % Seg Neuts % (Manual) Lymphocytes % (Manual) Monocytes % (Manual) Nucleated RBC % Seg Neutrophils # Seg Neutrophils # Man Lymphocytes # (Manual) Monocytes # (Manual) PT INR D-Dimer ABG pH 7.464 H POC ABG pCO2 POC ABG pO2 ABG pO2 ABG HCO3 ABG Base Excess ABG Hemoglobin 9.9 L ABG Oxyhemoglobin ABG Sodium 131.6 L ABG Potassium ABG Chloride 97.0 L ABG Glucose 281 H Carboxyhemoglobin 0.1 L Sodium Potassium Chloride Carbon Dioxide BUN Creatinine Glucose POC Glucose 298 H 340 H Lactic Acid Calcium Phosphorus Ferritin Total Bilirubin Direct Bilirubin AST ALT Lactate Dehydrogenase Total Creatine Kinase Troponin T Total Protein Albumin Triglycerides Arterial Blood Glucose 281 H Arterial Blood Ionized Calcium 3.9 L Urine pH Urine WBC (Auto) Urine Creatinine Salicylates Acetaminophen Coronavirus (PCR) 09/10/20 09/11/20 09/11/20 23:07 04:44 05:17 WBC RBC Hgb Hct MCHC RDW Lymph % (Auto) Kane % (Auto) Lymph # (Auto) Kane # (Auto) Seg Neutrophils % Seg Neuts % (Manual) Lymphocytes % (Manual) Monocytes % (Manual) Nucleated RBC % Seg Neutrophils # Seg Neutrophils # Man Lymphocytes # (Manual) Monocytes # (Manual) PT 16.9 H INR 1.39 H D-Dimer ABG pH POC ABG pCO2 POC ABG pO2 ABG pO2 ABG HCO3 ABG Base Excess ABG Hemoglobin ABG Oxyhemoglobin ABG Sodium ABG Potassium ABG Chloride ABG Glucose Carboxyhemoglobin Sodium Potassium Chloride Carbon Dioxide BUN Creatinine Glucose POC Glucose 367 H 416 H Lactic Acid Calcium Phosphorus Ferritin Total Bilirubin Direct Bilirubin AST ALT Lactate Dehydrogenase Total Creatine Kinase Troponin T Total Protein Albumin Triglycerides Arterial Blood Glucose Arterial Blood Ionized Calcium Urine pH Urine WBC (Auto) Urine Creatinine Salicylates Acetaminophen Coronavirus (PCR) 09/11/20 09/11/20 09/11/20 05:40 12:01 17:50 WBC RBC Hgb Hct MCHC RDW Lymph % (Auto) Kane % (Auto) Lymph # (Auto) Kane # (Auto) Seg Neutrophils % Seg Neuts % (Manual) Lymphocytes % (Manual) Monocytes % (Manual) Nucleated RBC % Seg Neutrophils # Seg Neutrophils # Man Lymphocytes # (Manual) Monocytes # (Manual) PT INR D-Dimer ABG pH 7.543 H POC ABG pCO2 POC ABG pO2 ABG pO2 112.1 H ABG HCO3 28.1 H ABG Base Excess 5.4 H ABG Hemoglobin 8.4 L ABG Oxyhemoglobin ABG Sodium ABG Potassium ABG Chloride ABG Glucose Carboxyhemoglobin Sodium Potassium Chloride Carbon Dioxide BUN Creatinine Glucose POC Glucose 418 H 404 H Lactic Acid Calcium Phosphorus Ferritin Total Bilirubin Direct Bilirubin AST ALT Lactate Dehydrogenase Total Creatine Kinase Troponin T Total Protein Albumin Triglycerides Arterial Blood Glucose Arterial Blood Ionized Calcium Urine pH Urine WBC (Auto) Urine Creatinine Salicylates Acetaminophen Coronavirus (PCR) 09/11/20 09/11/20 09/12/20 23:10 23:43 03:15 WBC RBC Hgb Hct MCHC RDW Lymph % (Auto) [place] % (Auto) Lymph # (Auto) [place] # (Auto) Seg Neutrophils % Seg Neuts % (Manual) Lymphocytes % (Manual) Monocytes % (Manual) Nucleated RBC % Seg Neutrophils # Seg Neutrophils # Man Lymphocytes # (Manual) Monocytes # (Manual) PT INR D-Dimer ABG pH POC ABG pCO2 POC ABG pO2 ABG pO2 ABG HCO3 ABG Base Excess ABG Hemoglobin ABG Oxyhemoglobin ABG Sodium ABG Potassium ABG Chloride ABG Glucose Carboxyhemoglobin Sodium 135 L Potassium Chloride 92.3 L Carbon Dioxide BUN 62 H Creatinine 3.7 H Glucose 406 H POC Glucose 372 H 359 H Lactic Acid Calcium Phosphorus Ferritin Total Bilirubin Direct Bilirubin AST 687 H ALT 3701 H Lactate Dehydrogenase Total Creatine Kinase Troponin T Total Protein 5.8 L Albumin 3.1 L Triglycerides Arterial Blood Glucose Arterial Blood Ionized Calcium Urine pH Urine WBC (Auto) Urine Creatinine Salicylates Acetaminophen Coronavirus (PCR) 09/12/20 09/12/20 09/12/20 03:18 04:00 04:00 WBC 13.7 H RBC 3.30 L Hgb 9.3 L Hct 27.6 L MCHC RDW 17.5 H Lymph % (Auto) [place] % (Auto) Lymph # (Auto) [place] # (Auto) Seg Neutrophils % Seg Neuts % (Manual) 76.0 H Lymphocytes % (Manual) 11.0 L Monocytes % (Manual) 13.0 H Nucleated RBC % Seg Neutrophils # Seg Neutrophils # Man 10.4 H Lymphocytes # (Manual) Monocytes # (Manual) 1.8 H PT 16.1 H INR 1.31 H D-Dimer ABG pH 7.558 H POC ABG pCO2 POC ABG pO2 74.7 L ABG pO2 ABG HCO3 ABG Base Excess ABG Hemoglobin 9.7 L ABG Oxyhemoglobin ABG Sodium 132.4 L ABG Potassium ABG Chloride 95.0 L ABG Glucose 437 H Carboxyhemoglobin Sodium Potassium Chloride Carbon Dioxide BUN Creatinine Glucose POC Glucose Lactic Acid Calcium Phosphorus Ferritin Total Bilirubin Direct Bilirubin AST ALT Lactate Dehydrogenase Total Creatine Kinase Troponin T Total Protein Albumin Triglycerides Arterial Blood Glucose 437 H Arterial Blood Ionized Calcium 4.3 L Urine pH Urine WBC (Auto) Urine Creatinine Salicylates Acetaminophen Coronavirus (PCR) 09/12/20 09/12/20 09/12/20 04:21 05:20 06:37 WBC RBC Hgb Hct MCHC RDW Lymph % (Auto) [place] % (Auto) Lymph # (Auto) [place] # (Auto) Seg Neutrophils % Seg Neuts % (Manual) Lymphocytes % (Manual) Monocytes % (Manual) Nucleated RBC % Seg Neutrophils # Seg Neutrophils # Man Lymphocytes # (Manual) Monocytes # (Manual) PT INR D-Dimer ABG pH POC ABG pCO2 POC ABG pO2 ABG pO2 ABG HCO3 ABG Base Excess ABG Hemoglobin ABG Oxyhemoglobin ABG Sodium ABG Potassium ABG Chloride ABG Glucose Carboxyhemoglobin Sodium Potassium Chloride Carbon Dioxide BUN Creatinine Glucose POC Glucose 417 H 397 H 370 H Lactic Acid Calcium Phosphorus Ferritin Total Bilirubin Direct Bilirubin AST ALT Lactate Dehydrogenase Total Creatine Kinase Troponin T Total Protein Albumin Triglycerides Arterial Blood Glucose Arterial Blood Ionized Calcium Urine pH Urine WBC (Auto) Urine Creatinine Salicylates Acetaminophen Coronavirus (PCR) 09/12/20 09/12/20 09/12/20 11:56 17:14 21:52 WBC RBC Hgb Hct MCHC RDW Lymph % (Auto) [place] % (Auto) Lymph # (Auto) [place] # (Auto) Seg Neutrophils % Seg Neuts % (Manual) Lymphocytes % (Manual) Monocytes % (Manual) Nucleated RBC % Seg Neutrophils # Seg Neutrophils # Man Lymphocytes # (Manual) Monocytes # (Manual) PT INR D-Dimer ABG pH POC ABG pCO2 POC ABG pO2 ABG pO2 ABG HCO3 ABG Base Excess ABG Hemoglobin ABG Oxyhemoglobin ABG Sodium ABG Potassium ABG Chloride ABG Glucose Carboxyhemoglobin Sodium Potassium Chloride Carbon Dioxide BUN Creatinine Glucose POC Glucose 341 H 325 H 285 H Lactic Acid Calcium Phosphorus Ferritin Total Bilirubin Direct Bilirubin AST ALT Lactate Dehydrogenase Total Creatine Kinase Troponin T Total Protein Albumin Triglycerides Arterial Blood Glucose Arterial Blood Ionized Calcium Urine pH Urine WBC (Auto) Urine Creatinine Salicylates Acetaminophen Coronavirus (PCR) 09/12/20 09/12/20 09/12/20 23:39 Unknown Unknown WBC RBC Hgb Hct MCHC RDW Lymph % (Auto) [place] % (Auto) Lymph # (Auto) [place] # (Auto) Seg Neutrophils % Seg Neuts % (Manual) Lymphocytes % (Manual) Monocytes % (Manual) Nucleated RBC % Seg Neutrophils # Seg Neutrophils # Man Lymphocytes # (Manual) Monocytes # (Manual) PT INR D-Dimer ABG pH POC ABG pCO2 POC ABG pO2 ABG pO2 ABG HCO3 ABG Base Excess ABG Hemoglobin ABG Oxyhemoglobin ABG Sodium ABG Potassium ABG Chloride ABG Glucose Carboxyhemoglobin Sodium 135 L Potassium Chloride 92.2 L Carbon Dioxide BUN 65 H Creatinine 3.5 H Glucose 418 H POC Glucose 338 H Lactic Acid Calcium Phosphorus Ferritin Total Bilirubin Direct Bilirubin AST 553 H ALT 3453 H Lactate Dehydrogenase Total Creatine Kinase Troponin T Total Protein 5.9 L Albumin 3.0 L Triglycerides 220 H Arterial Blood Glucose Arterial Blood Ionized Calcium Urine pH Urine WBC (Auto) Urine Creatinine Salicylates Acetaminophen Coronavirus (PCR) 09/13/20 09/13/20 09/13/20 04:47 05:24 10:50 WBC RBC Hgb Hct MCHC RDW Lymph % (Auto) [place] % (Auto) Lymph # (Auto) [place] # (Auto) Seg Neutrophils % Seg Neuts % (Manual) Lymphocytes % (Manual) Monocytes % (Manual) Nucleated RBC % Seg Neutrophils # Seg Neutrophils # Man Lymphocytes # (Manual) Monocytes # (Manual) PT INR D-Dimer ABG pH 7.571 H POC ABG pCO2 POC ABG pO2 69.0 L ABG pO2 ABG HCO3 ABG Base Excess ABG Hemoglobin 10.1 L ABG Oxyhemoglobin 93.2 L ABG Sodium 134.0 L ABG Potassium ABG Chloride ABG Glucose 365 H Carboxyhemoglobin 0.4 L Sodium Potassium Chloride 96.6 L Carbon Dioxide 32 H BUN 76 H Creatinine 3.1 H Glucose 395 H POC Glucose 329 H Lactic Acid Calcium Phosphorus Ferritin Total Bilirubin Direct Bilirubin AST ALT Lactate Dehydrogenase Total Creatine Kinase Troponin T Total Protein Albumin Triglycerides Arterial Blood Glucose 365 H Arterial Blood Ionized Calcium Urine pH Urine WBC (Auto) Urine Creatinine Salicylates Acetaminophen Coronavirus (PCR) 09/13/20 09/13/20 09/13/20 11:39 17:48 23:35 WBC RBC Hgb Hct MCHC RDW Lymph % (Auto) [place] % (Auto) Lymph # (Auto) [place] # (Auto) Seg Neutrophils % Seg Neuts % (Manual) Lymphocytes % (Manual) Monocytes % (Manual) Nucleated RBC % Seg Neutrophils # Seg Neutrophils # Man Lymphocytes # (Manual) Monocytes # (Manual) PT INR D-Dimer ABG pH POC ABG pCO2 POC ABG pO2 ABG pO2 ABG HCO3 ABG Base Excess ABG Hemoglobin ABG Oxyhemoglobin ABG Sodium ABG Potassium ABG Chloride ABG Glucose Carboxyhemoglobin Sodium Potassium Chloride Carbon Dioxide BUN Creatinine Glucose POC Glucose 344 H 286 H 223 H Lactic Acid Calcium Phosphorus Ferritin Total Bilirubin Direct Bilirubin AST ALT Lactate Dehydrogenase Total Creatine Kinase Troponin T Total Protein Albumin Triglycerides Arterial Blood Glucose Arterial Blood Ionized Calcium Urine pH Urine WBC (Auto) Urine Creatinine Salicylates Acetaminophen Coronavirus (PCR) 09/14/20 09/14/20 09/14/20 03:54 05:34 10:27 WBC RBC Hgb Hct MCHC RDW Lymph % (Auto) [place] % (Auto) Lymph # (Auto) [place] # (Auto) Seg Neutrophils % Seg Neuts % (Manual) Lymphocytes % (Manual) Monocytes % (Manual) Nucleated RBC % Seg Neutrophils # Seg Neutrophils # Man Lymphocytes # (Manual) Monocytes # (Manual) PT INR D-Dimer ABG pH POC ABG pCO2 POC ABG pO2 71.1 L ABG pO2 ABG HCO3 ABG Base Excess ABG Hemoglobin 10.3 L ABG Oxyhemoglobin ABG Sodium 135.2 L ABG Potassium ABG Chloride ABG Glucose 281 H Carboxyhemoglobin Sodium Potassium Chloride 96.6 L Carbon Dioxide BUN 100 H Creatinine 3.9 H Glucose 286 H POC Glucose 252 H Lactic Acid Calcium Phosphorus Ferritin Total Bilirubin Direct Bilirubin AST 145 H ALT 1400 H Lactate Dehydrogenase Total Creatine Kinase Troponin T Total Protein 5.6 L Albumin 2.9 L Triglycerides Arterial Blood Glucose 281 H Arterial Blood Ionized Calcium Urine pH Urine WBC (Auto) Urine Creatinine Salicylates Acetaminophen Coronavirus (PCR) 09/14/20 09/14/20 09/14/20 11:38 17:52 23:07 WBC RBC Hgb Hct MCHC RDW Lymph % (Auto) [place] % (Auto) Lymph # (Auto) [place] # (Auto) Seg Neutrophils % Seg Neuts % (Manual) Lymphocytes % (Manual) Monocytes % (Manual) Nucleated RBC % Seg Neutrophils # Seg Neutrophils # Man Lymphocytes # (Manual) Monocytes # (Manual) PT INR D-Dimer ABG pH POC ABG pCO2 POC ABG pO2 ABG pO2 ABG HCO3 ABG Base Excess ABG Hemoglobin ABG Oxyhemoglobin ABG Sodium ABG Potassium ABG Chloride ABG Glucose Carboxyhemoglobin Sodium Potassium Chloride Carbon Dioxide BUN Creatinine Glucose POC Glucose 247 H 247 H 256 H Lactic Acid Calcium Phosphorus Ferritin Total Bilirubin Direct Bilirubin AST ALT Lactate Dehydrogenase Total Creatine Kinase Troponin T Total Protein Albumin Triglycerides Arterial Blood Glucose Arterial Blood Ionized Calcium Urine pH Urine WBC (Auto) Urine Creatinine Salicylates Acetaminophen Coronavirus (PCR) 09/15/20 09/15/20 09/15/20 04:54 11:24 17:48 WBC RBC Hgb Hct MCHC RDW Lymph % (Auto) [place] % (Auto) Lymph # (Auto) [place] # (Auto) Seg Neutrophils % Seg Neuts % (Manual) Lymphocytes % (Manual) Monocytes % (Manual) Nucleated RBC % Seg Neutrophils # Seg Neutrophils # Man Lymphocytes # (Manual) Monocytes # (Manual) PT INR D-Dimer ABG pH POC ABG pCO2 POC ABG pO2 ABG pO2 ABG HCO3 ABG Base Excess ABG Hemoglobin ABG Oxyhemoglobin ABG Sodium ABG Potassium ABG Chloride ABG Glucose Carboxyhemoglobin Sodium Potassium Chloride Carbon Dioxide BUN Creatinine Glucose POC Glucose 271 H 228 H 254 H Lactic Acid Calcium Phosphorus Ferritin Total Bilirubin Direct Bilirubin AST ALT Lactate Dehydrogenase Total Creatine Kinase Troponin T Total Protein Albumin Triglycerides Arterial Blood Glucose Arterial Blood Ionized Calcium Urine pH Urine WBC (Auto) Urine Creatinine Salicylates Acetaminophen Coronavirus (PCR) 09/15/20 09/15/20 09/15/20 19:20 19:20 23:13 WBC 27.3 H RBC 3.16 L Hgb 8.8 L Hct 27.0 L MCHC RDW 19.7 H Lymph % (Auto) [place] % (Auto) Lymph # (Auto) [place] # (Auto) Seg Neutrophils % Seg Neuts % (Manual) 81.0 H Lymphocytes % (Manual) 9.0 L Monocytes % (Manual) 10.0 H Nucleated RBC % Seg Neutrophils # Seg Neutrophils # Man 22.1 H Lymphocytes # (Manual) Monocytes # (Manual) 2.7 H PT INR D-Dimer ABG pH POC ABG pCO2 POC ABG pO2 ABG pO2 ABG HCO3 ABG Base Excess ABG Hemoglobin ABG Oxyhemoglobin ABG Sodium ABG Potassium ABG Chloride ABG Glucose Carboxyhemoglobin Sodium Potassium Chloride Carbon Dioxide BUN 68 H Creatinine 2.8 H Glucose 288 H POC Glucose 259 H Lactic Acid Calcium Phosphorus Ferritin Total Bilirubin Direct Bilirubin AST ALT Lactate Dehydrogenase Total Creatine Kinase Troponin T Total Protein Albumin Triglycerides Arterial Blood Glucose Arterial Blood Ionized Calcium Urine pH Urine WBC (Auto) Urine Creatinine Salicylates Acetaminophen Coronavirus (PCR) 09/16/20 09/16/20 09/16/20 05:27 09:40 11:48 WBC RBC Hgb Hct MCHC RDW Lymph % (Auto) [place] % (Auto) Lymph # (Auto) [place] # (Auto) Seg Neutrophils % Seg Neuts % (Manual) Lymphocytes % (Manual) Monocytes % (Manual) Nucleated RBC % Seg Neutrophils # Seg Neutrophils # Man Lymphocytes # (Manual) Monocytes # (Manual) PT INR D-Dimer ABG pH POC ABG pCO2 POC ABG pO2 ABG pO2 ABG HCO3 ABG Base Excess ABG Hemoglobin ABG Oxyhemoglobin ABG Sodium ABG Potassium ABG Chloride ABG Glucose Carboxyhemoglobin Sodium Potassium Chloride Carbon Dioxide 31 H BUN 77 H Creatinine 2.9 H Glucose 250 H POC Glucose 275 H 234 H Lactic Acid Calcium Phosphorus Ferritin Total Bilirubin Direct Bilirubin AST ALT Lactate Dehydrogenase Total Creatine Kinase Troponin T Total Protein Albumin Triglycerides Arterial Blood Glucose Arterial Blood Ionized Calcium Urine pH Urine WBC (Auto) Urine Creatinine Salicylates Acetaminophen Coronavirus (PCR) 09/16/20 09/16/20 09/17/20 17:40 23:23 00:01 WBC RBC Hgb Hct MCHC RDW Lymph % (Auto) [place] % (Auto) Lymph # (Auto) [place] # (Auto) Seg Neutrophils % Seg Neuts % (Manual) Lymphocytes % (Manual) Monocytes % (Manual) Nucleated RBC % Seg Neutrophils # Seg Neutrophils # Man Lymphocytes # (Manual) Monocytes # (Manual) PT INR D-Dimer ABG pH POC ABG pCO2 POC ABG pO2 ABG pO2 ABG HCO3 ABG Base Excess ABG Hemoglobin ABG Oxyhemoglobin ABG Sodium ABG Potassium ABG Chloride ABG Glucose Carboxyhemoglobin Sodium Potassium Chloride Carbon Dioxide BUN Creatinine Glucose POC Glucose 172 H 161 H Lactic Acid 2.10 H* Calcium Phosphorus Ferritin Total Bilirubin Direct Bilirubin AST ALT Lactate Dehydrogenase Total Creatine Kinase Troponin T Total Protein Albumin Triglycerides Arterial Blood Glucose Arterial Blood Ionized Calcium Urine pH Urine WBC (Auto) Urine Creatinine Salicylates Acetaminophen Coronavirus (PCR) 09/17/20 09/17/20 09/17/20 04:00 04:00 05:09 WBC 19.5 H RBC 3.03 L Hgb 8.6 L Hct 26.3 L MCHC RDW 19.4 H Lymph % (Auto) 8.7 L [place] % (Auto) 13.7 H Lymph # (Auto) [place] # (Auto) 2.7 H Seg Neutrophils % 76.9 H Seg Neuts % (Manual) Lymphocytes % (Manual) Monocytes % (Manual) Nucleated RBC % Seg Neutrophils # 15.0 H Seg Neutrophils # Man Lymphocytes # (Manual) Monocytes # (Manual) PT INR D-Dimer ABG pH POC ABG pCO2 POC ABG pO2 ABG pO2 ABG HCO3 ABG Base Excess ABG Hemoglobin ABG Oxyhemoglobin ABG Sodium ABG Potassium ABG Chloride ABG Glucose Carboxyhemoglobin Sodium 146 H Potassium 3.1 L Chloride Carbon Dioxide BUN 79 H Creatinine 2.6 H Glucose 122 H POC Glucose 116 H Lactic Acid Calcium Phosphorus Ferritin Total Bilirubin Direct Bilirubin AST 64 H ALT 516 H Lactate Dehydrogenase Total Creatine Kinase Troponin T Total Protein 5.7 L Albumin 2.8 L Triglycerides Arterial Blood Glucose Arterial Blood Ionized Calcium Urine pH Urine WBC (Auto) Urine Creatinine Salicylates Acetaminophen Coronavirus (PCR) 09/17/20 09/17/20 09/18/20 13:52 17:38 05:16 WBC RBC Hgb Hct MCHC RDW Lymph % (Auto) [place] % (Auto) Lymph # (Auto) [place] # (Auto) Seg Neutrophils % Seg Neuts % (Manual) Lymphocytes % (Manual) Monocytes % (Manual) Nucleated RBC % Seg Neutrophils # Seg Neutrophils # Man Lymphocytes # (Manual) Monocytes # (Manual) PT INR D-Dimer ABG pH POC ABG pCO2 POC ABG pO2 ABG pO2 ABG HCO3 ABG Base Excess ABG Hemoglobin ABG Oxyhemoglobin ABG Sodium ABG Potassium ABG Chloride ABG Glucose Carboxyhemoglobin Sodium Potassium Chloride Carbon Dioxide BUN Creatinine Glucose POC Glucose 68 L 126 H Lactic Acid 2.90 H* Calcium Phosphorus Ferritin Total Bilirubin Direct Bilirubin AST ALT Lactate Dehydrogenase Total Creatine Kinase Troponin T Total Protein Albumin Triglycerides Arterial Blood Glucose Arterial Blood Ionized Calcium Urine pH Urine WBC (Auto) Urine Creatinine Salicylates Acetaminophen Coronavirus (PCR) 09/18/20 09/18/20 09/18/20 05:30 05:30 11:42 WBC 18.2 H RBC 3.18 L Hgb 9.0 L Hct 27.2 L MCHC RDW 18.8 H Lymph % (Auto) [place] % (Auto) Lymph # (Auto) [place] # (Auto) Seg Neutrophils % Seg Neuts % (Manual) Lymphocytes % (Manual) Monocytes % (Manual) Nucleated RBC % Seg Neutrophils # Seg Neutrophils # Man Lymphocytes # (Manual) Monocytes # (Manual) PT INR D-Dimer ABG pH POC ABG pCO2 POC ABG pO2 ABG pO2 ABG HCO3 ABG Base Excess ABG Hemoglobin ABG Oxyhemoglobin ABG Sodium ABG Potassium ABG Chloride ABG Glucose Carboxyhemoglobin Sodium Potassium 3.1 L Chloride Carbon Dioxide BUN 73 H Creatinine 2.6 H Glucose 154 H POC Glucose 140 H Lactic Acid Calcium Phosphorus Ferritin Total Bilirubin Direct Bilirubin AST ALT Lactate Dehydrogenase Total Creatine Kinase Troponin T Total Protein Albumin Triglycerides Arterial Blood Glucose Arterial Blood Ionized Calcium Urine pH Urine WBC (Auto) Urine Creatinine Salicylates Acetaminophen Coronavirus (PCR) 09/18/20 09/18/20 09/19/20 18:15 23:37 05:13 WBC 22.8 H RBC 3.30 L Hgb 9.2 L Hct 28.1 L MCHC RDW 18.2 H Lymph % (Auto) [place] % (Auto) Lymph # (Auto) [place] # (Auto) Seg Neutrophils % Seg Neuts % (Manual) 87.0 H Lymphocytes % (Manual) 5.0 L Monocytes % (Manual) Nucleated RBC % Seg Neutrophils # Seg Neutrophils # Man 19.8 H Lymphocytes # (Manual) 1.1 L Monocytes # (Manual) 1.6 H PT INR D-Dimer ABG pH POC ABG pCO2 POC ABG pO2 ABG pO2 ABG HCO3 ABG Base Excess ABG Hemoglobin ABG Oxyhemoglobin ABG Sodium ABG Potassium ABG Chloride ABG Glucose Carboxyhemoglobin Sodium Potassium Chloride Carbon Dioxide BUN Creatinine Glucose POC Glucose 149 H 153 H Lactic Acid Calcium Phosphorus Ferritin Total Bilirubin Direct Bilirubin AST ALT Lactate Dehydrogenase Total Creatine Kinase Troponin T Total Protein Albumin Triglycerides Arterial Blood Glucose Arterial Blood Ionized Calcium Urine pH Urine WBC (Auto) Urine Creatinine Salicylates Acetaminophen Coronavirus (PCR) 09/19/20 09/19/20 09/19/20 05:13 05:25 11:56 WBC RBC Hgb Hct MCHC RDW Lymph % (Auto) [place] % (Auto) Lymph # (Auto) [place] # (Auto) Seg Neutrophils % Seg Neuts % (Manual) Lymphocytes % (Manual) Monocytes % (Manual) Nucleated RBC % Seg Neutrophils # Seg Neutrophils # Man Lymphocytes # (Manual) Monocytes # (Manual) PT INR D-Dimer ABG pH POC ABG pCO2 POC ABG pO2 ABG pO2 ABG HCO3 ABG Base Excess ABG Hemoglobin ABG Oxyhemoglobin ABG Sodium ABG Potassium ABG Chloride ABG Glucose Carboxyhemoglobin Sodium Potassium Chloride Carbon Dioxide BUN 55 H Creatinine 2.3 H Glucose 196 H POC Glucose 168 H 137 H Lactic Acid Calcium Phosphorus Ferritin Total Bilirubin Direct Bilirubin AST ALT Lactate Dehydrogenase Total Creatine Kinase Troponin T Total Protein Albumin Triglycerides Arterial Blood Glucose Arterial Blood Ionized Calcium Urine pH Urine WBC (Auto) Urine Creatinine Salicylates Acetaminophen Coronavirus (PCR) 09/19/20 09/19/20 09/20/20 17:43 23:43 05:02 WBC RBC Hgb Hct MCHC RDW Lymph % (Auto) [place] % (Auto) Lymph # (Auto) [place] # (Auto) Seg Neutrophils % Seg Neuts % (Manual) Lymphocytes % (Manual) Monocytes % (Manual) Nucleated RBC % Seg Neutrophils # Seg Neutrophils # Man Lymphocytes # (Manual) Monocytes # (Manual) PT INR D-Dimer ABG pH POC ABG pCO2 POC ABG pO2 ABG pO2 ABG HCO3 ABG Base Excess ABG Hemoglobin ABG Oxyhemoglobin ABG Sodium ABG Potassium ABG Chloride ABG Glucose Carboxyhemoglobin Sodium Potassium Chloride Carbon Dioxide BUN Creatinine Glucose POC Glucose 114 H 136 H 163 H Lactic Acid Calcium Phosphorus Ferritin Total Bilirubin Direct Bilirubin AST ALT Lactate Dehydrogenase Total Creatine Kinase Troponin T Total Protein Albumin Triglycerides Arterial Blood Glucose Arterial Blood Ionized Calcium Urine pH Urine WBC (Auto) Urine Creatinine Salicylates Acetaminophen Coronavirus (PCR) 09/20/20 09/20/20 09/20/20 05:36 05:36 11:10 WBC 20.1 H RBC 3.07 L Hgb 8.5 L Hct 26.4 L MCHC RDW 18.6 H Lymph % (Auto) 9.6 L [place] % (Auto) 9.6 H Lymph # (Auto) [place] # (Auto) 1.9 H Seg Neutrophils % 79.0 H Seg Neuts % (Manual) Lymphocytes % (Manual) Monocytes % (Manual) Nucleated RBC % Seg Neutrophils # 15.9 H Seg Neutrophils # Man Lymphocytes # (Manual) Monocytes # (Manual) PT INR D-Dimer ABG pH POC ABG pCO2 POC ABG pO2 ABG pO2 ABG HCO3 ABG Base Excess ABG Hemoglobin ABG Oxyhemoglobin ABG Sodium ABG Potassium ABG Chloride ABG Glucose Carboxyhemoglobin Sodium Potassium 3.3 L Chloride Carbon Dioxide BUN 76 H Creatinine 3.6 H D Glucose 213 H POC Glucose 167 H Lactic Acid Calcium Phosphorus Ferritin Total Bilirubin Direct Bilirubin AST ALT Lactate Dehydrogenase Total Creatine Kinase Troponin T Total Protein Albumin Triglycerides Arterial Blood Glucose Arterial Blood Ionized Calcium Urine pH Urine WBC (Auto) Urine Creatinine Salicylates Acetaminophen Coronavirus (PCR) 09/20/20 09/20/20 09/20/20 14:02 17:24 23:30 WBC RBC Hgb Hct MCHC RDW Lymph % (Auto) [place] % (Auto) Lymph # (Auto) [place] # (Auto) Seg Neutrophils % Seg Neuts % (Manual) Lymphocytes % (Manual) Monocytes % (Manual) Nucleated RBC % Seg Neutrophils # Seg Neutrophils # Man Lymphocytes # (Manual) Monocytes # (Manual) PT INR D-Dimer ABG pH POC ABG pCO2 POC ABG pO2 ABG pO2 ABG HCO3 ABG Base Excess ABG Hemoglobin ABG Oxyhemoglobin ABG Sodium ABG Potassium ABG Chloride ABG Glucose Carboxyhemoglobin Sodium Potassium Chloride Carbon Dioxide BUN Creatinine Glucose POC Glucose 164 H 146 H 147 H Lactic Acid Calcium Phosphorus Ferritin Total Bilirubin Direct Bilirubin AST ALT Lactate Dehydrogenase Total Creatine Kinase Troponin T Total Protein Albumin Triglycerides Arterial Blood Glucose Arterial Blood Ionized Calcium Urine pH Urine WBC (Auto) Urine Creatinine Salicylates Acetaminophen Coronavirus (PCR) 09/21/20 09/21/20 09/21/20 05:00 05:00 05:24 WBC 17.4 H RBC 2.95 L Hgb 8.3 L Hct 25.8 L MCHC RDW 19.3 H Lymph % (Auto) 11.1 L [place] % (Auto) 11.1 H Lymph # (Auto) [place] # (Auto) 1.9 H Seg Neutrophils % 75.9 H Seg Neuts % (Manual) Lymphocytes % (Manual) Monocytes % (Manual) Nucleated RBC % Seg Neutrophils # 13.2 H Seg Neutrophils # Man Lymphocytes # (Manual) Monocytes # (Manual) PT INR D-Dimer ABG pH POC ABG pCO2 POC ABG pO2 ABG pO2 ABG HCO3 ABG Base Excess ABG Hemoglobin ABG Oxyhemoglobin ABG Sodium ABG Potassium ABG Chloride ABG Glucose Carboxyhemoglobin Sodium Potassium Chloride Carbon Dioxide BUN 60 H Creatinine 3.5 H Glucose 185 H POC Glucose 139 H Lactic Acid Calcium Phosphorus Ferritin Total Bilirubin Direct Bilirubin AST ALT Lactate Dehydrogenase Total Creatine Kinase Troponin T Total Protein Albumin Triglycerides Arterial Blood Glucose Arterial Blood Ionized Calcium Urine pH Urine WBC (Auto) Urine Creatinine Salicylates Acetaminophen Coronavirus (PCR) 09/21/20 09/21/20 09/21/20 11:59 17:59 23:32 WBC RBC Hgb Hct MCHC RDW Lymph % (Auto) [place] % (Auto) Lymph # (Auto) [place] # (Auto) Seg Neutrophils % Seg Neuts % (Manual) Lymphocytes % (Manual) Monocytes % (Manual) Nucleated RBC % Seg Neutrophils # Seg Neutrophils # Man Lymphocytes # (Manual) Monocytes # (Manual) PT INR D-Dimer ABG pH POC ABG pCO2 POC ABG pO2 ABG pO2 ABG HCO3 ABG Base Excess ABG Hemoglobin ABG Oxyhemoglobin ABG Sodium ABG Potassium ABG Chloride ABG Glucose Carboxyhemoglobin Sodium Potassium Chloride Carbon Dioxide BUN Creatinine Glucose POC Glucose 183 H 141 H 162 H Lactic Acid Calcium Phosphorus Ferritin Total Bilirubin Direct Bilirubin AST ALT Lactate Dehydrogenase Total Creatine Kinase Troponin T Total Protein Albumin Triglycerides Arterial Blood Glucose Arterial Blood Ionized Calcium Urine pH Urine WBC (Auto) Urine Creatinine Salicylates Acetaminophen Coronavirus (PCR) 09/22/20 09/22/20 09/22/20 05:32 12:07 17:53 WBC RBC Hgb Hct MCHC RDW Lymph % (Auto) [place] % (Auto) Lymph # (Auto) [place] # (Auto) Seg Neutrophils % Seg Neuts % (Manual) Lymphocytes % (Manual) Monocytes % (Manual) Nucleated RBC % Seg Neutrophils # Seg Neutrophils # Man Lymphocytes # (Manual) Monocytes # (Manual) PT INR D-Dimer ABG pH POC ABG pCO2 POC ABG pO2 ABG pO2 ABG HCO3 ABG Base Excess ABG Hemoglobin ABG Oxyhemoglobin ABG Sodium ABG Potassium ABG Chloride ABG Glucose Carboxyhemoglobin Sodium Potassium Chloride Carbon Dioxide BUN Creatinine Glucose POC Glucose 172 H 169 H 178 H Lactic Acid Calcium Phosphorus Ferritin Total Bilirubin Direct Bilirubin AST ALT Lactate Dehydrogenase Total Creatine Kinase Troponin T Total Protein Albumin Triglycerides Arterial Blood Glucose Arterial Blood Ionized Calcium Urine pH Urine WBC (Auto) Urine Creatinine Salicylates Acetaminophen Coronavirus (PCR) 09/22/20 09/23/20 09/23/20 23:34 05:21 06:05 WBC RBC Hgb Hct MCHC RDW Lymph % (Auto) [place] % (Auto) Lymph # (Auto) [place] # (Auto) Seg Neutrophils % Seg Neuts % (Manual) Lymphocytes % (Manual) Monocytes % (Manual) Nucleated RBC % Seg Neutrophils # Seg Neutrophils # Man Lymphocytes # (Manual) Monocytes # (Manual) PT INR D-Dimer ABG pH POC ABG pCO2 POC ABG pO2 ABG pO2 ABG HCO3 ABG Base Excess ABG Hemoglobin ABG Oxyhemoglobin ABG Sodium ABG Potassium ABG Chloride ABG Glucose Carboxyhemoglobin Sodium 147 H Potassium Chloride 109.2 H Carbon Dioxide 21 L BUN 54 H Creatinine 4.2 H Glucose 193 H POC Glucose 151 H 168 H Lactic Acid Calcium Phosphorus Ferritin Total Bilirubin Direct Bilirubin AST ALT Lactate Dehydrogenase Total Creatine Kinase Troponin T Total Protein Albumin Triglycerides Arterial Blood Glucose Arterial Blood Ionized Calcium Urine pH Urine WBC (Auto) Urine Creatinine Salicylates Acetaminophen Coronavirus (PCR) 09/23/20 09/23/20 09/23/20 12:30 17:52 23:16 WBC RBC Hgb Hct MCHC RDW Lymph % (Auto) [place] % (Auto) Lymph # (Auto) [place] # (Auto) Seg Neutrophils % Seg Neuts % (Manual) Lymphocytes % (Manual) Monocytes % (Manual) Nucleated RBC % Seg Neutrophils # Seg Neutrophils # Man Lymphocytes # (Manual) Monocytes # (Manual) PT INR D-Dimer ABG pH POC ABG pCO2 POC ABG pO2 ABG pO2 ABG HCO3 ABG Base Excess ABG Hemoglobin ABG Oxyhemoglobin ABG Sodium ABG Potassium ABG Chloride ABG Glucose Carboxyhemoglobin Sodium Potassium Chloride Carbon Dioxide BUN Creatinine Glucose POC Glucose 170 H 164 H 160 H Lactic Acid Calcium Phosphorus Ferritin Total Bilirubin Direct Bilirubin AST ALT Lactate Dehydrogenase Total Creatine Kinase Troponin T Total Protein Albumin Triglycerides Arterial Blood Glucose Arterial Blood Ionized Calcium Urine pH Urine WBC (Auto) Urine Creatinine Salicylates Acetaminophen Coronavirus (PCR) 09/24/20 09/24/20 09/24/20 05:22 05:44 12:32 WBC RBC Hgb Hct MCHC RDW Lymph % (Auto) [place] % (Auto) Lymph # (Auto) [place] # (Auto) Seg Neutrophils % Seg Neuts % (Manual) Lymphocytes % (Manual) Monocytes % (Manual) Nucleated RBC % Seg Neutrophils # Seg Neutrophils # Man Lymphocytes # (Manual) Monocytes # (Manual) PT INR D-Dimer ABG pH POC ABG pCO2 POC ABG pO2 ABG pO2 ABG HCO3 ABG Base Excess ABG Hemoglobin ABG Oxyhemoglobin ABG Sodium ABG Potassium ABG Chloride ABG Glucose Carboxyhemoglobin Sodium 148 H Potassium Chloride 109.2 H Carbon Dioxide BUN 61 H Creatinine 4.9 H Glucose 176 H POC Glucose 150 H 165 H Lactic Acid Calcium Phosphorus Ferritin Total Bilirubin Direct Bilirubin AST ALT Lactate Dehydrogenase Total Creatine Kinase Troponin T Total Protein Albumin Triglycerides Arterial Blood Glucose Arterial Blood Ionized Calcium Urine pH Urine WBC (Auto) Urine Creatinine Salicylates Acetaminophen Coronavirus (PCR) 09/24/20 09/24/20 09/25/20 17:28 23:18 05:18 WBC RBC Hgb Hct MCHC RDW Lymph % (Auto) [place] % (Auto) Lymph # (Auto) [place] # (Auto) Seg Neutrophils % Seg Neuts % (Manual) Lymphocytes % (Manual) Monocytes % (Manual) Nucleated RBC % Seg Neutrophils # Seg Neutrophils # Man Lymphocytes # (Manual) Monocytes # (Manual) PT INR D-Dimer ABG pH POC ABG pCO2 POC ABG pO2 ABG pO2 ABG HCO3 ABG Base Excess ABG Hemoglobin ABG Oxyhemoglobin ABG Sodium ABG Potassium ABG Chloride ABG Glucose Carboxyhemoglobin Sodium 149 H Potassium 3.3 L Chloride 109.6 H Carbon Dioxide BUN 70 H Creatinine 5.6 H Glucose 196 H POC Glucose 153 H 177 H Lactic Acid Calcium Phosphorus Ferritin Total Bilirubin Direct Bilirubin AST 55 H ALT 74 H Lactate Dehydrogenase Total Creatine Kinase Troponin T Total Protein Albumin 2.6 L Triglycerides Arterial Blood Glucose Arterial Blood Ionized Calcium Urine pH Urine WBC (Auto) Urine Creatinine Salicylates Acetaminophen Coronavirus (PCR) 09/25/20 09/25/20 09/25/20 05:18 11:47 17:04 WBC RBC Hgb Hct MCHC RDW Lymph % (Auto) [place] % (Auto) Lymph # (Auto) [place] # (Auto) Seg Neutrophils % Seg Neuts % (Manual) Lymphocytes % (Manual) Monocytes % (Manual) Nucleated RBC % Seg Neutrophils # Seg Neutrophils # Man Lymphocytes # (Manual) Monocytes # (Manual) PT INR D-Dimer ABG pH POC ABG pCO2 POC ABG pO2 ABG pO2 ABG HCO3 ABG Base Excess ABG Hemoglobin ABG Oxyhemoglobin ABG Sodium ABG Potassium ABG Chloride ABG Glucose Carboxyhemoglobin Sodium Potassium Chloride Carbon Dioxide BUN Creatinine Glucose POC Glucose 159 H 169 H 142 H Lactic Acid Calcium Phosphorus Ferritin Total Bilirubin Direct Bilirubin AST ALT Lactate Dehydrogenase Total Creatine Kinase Troponin T Total Protein Albumin Triglycerides Arterial Blood Glucose Arterial Blood Ionized Calcium Urine pH Urine WBC (Auto) Urine Creatinine Salicylates Acetaminophen Coronavirus (PCR) 09/25/20 09/26/20 09/26/20 23:20 04:00 05:00 WBC RBC 2.93 L Hgb 8.5 L Hct 25.8 L MCHC RDW 18.5 H Lymph % (Auto) [place] % (Auto) 11.3 H Lymph # (Auto) [place] # (Auto) 1.1 H Seg Neutrophils % 72.0 H Seg Neuts % (Manual) Lymphocytes % (Manual) Monocytes % (Manual) Nucleated RBC % Seg Neutrophils # Seg Neutrophils # Man Lymphocytes # (Manual) Monocytes # (Manual) PT INR D-Dimer ABG pH POC ABG pCO2 POC ABG pO2 ABG pO2 ABG HCO3 ABG Base Excess ABG Hemoglobin ABG Oxyhemoglobin ABG Sodium ABG Potassium ABG Chloride ABG Glucose Carboxyhemoglobin Sodium Potassium 3.4 L Chloride Carbon Dioxide BUN 49 H Creatinine 4.4 H Glucose 179 H POC Glucose 138 H Lactic Acid Calcium Phosphorus Ferritin Total Bilirubin Direct Bilirubin AST ALT Lactate Dehydrogenase Total Creatine Kinase Troponin T Total Protein Albumin Triglycerides Arterial Blood Glucose Arterial Blood Ionized Calcium Urine pH Urine WBC (Auto) Urine Creatinine Salicylates Acetaminophen Coronavirus (PCR) 09/26/20 09/26/20 09/26/20 05:18 11:59 17:37 WBC RBC Hgb Hct MCHC RDW Lymph % (Auto) [place] % (Auto) Lymph # (Auto) [place] # (Auto) Seg Neutrophils % Seg Neuts % (Manual) Lymphocytes % (Manual) Monocytes % (Manual) Nucleated RBC % Seg Neutrophils # Seg Neutrophils # Man Lymphocytes # (Manual) Monocytes # (Manual) PT INR D-Dimer ABG pH POC ABG pCO2 POC ABG pO2 ABG pO2 ABG HCO3 ABG Base Excess ABG Hemoglobin ABG Oxyhemoglobin ABG Sodium ABG Potassium ABG Chloride ABG Glucose Carboxyhemoglobin Sodium Potassium Chloride Carbon Dioxide BUN Creatinine Glucose POC Glucose 155 H 165 H 132 H Lactic Acid Calcium Phosphorus Ferritin Total Bilirubin Direct Bilirubin AST ALT Lactate Dehydrogenase Total Creatine Kinase Troponin T Total Protein Albumin Triglycerides Arterial Blood Glucose Arterial Blood Ionized Calcium Urine pH Urine WBC (Auto) Urine Creatinine Salicylates Acetaminophen Coronavirus (PCR) 09/26/20 09/27/20 09/27/20 23:35 04:47 04:47 WBC RBC 3.24 L Hgb 9.3 L Hct 28.6 L MCHC RDW 18.2 H Lymph % (Auto) [place] % (Auto) 11.6 H Lymph # (Auto) [place] # (Auto) 1.0 H Seg Neutrophils % Seg Neuts % (Manual) Lymphocytes % (Manual) Monocytes % (Manual) Nucleated RBC % Seg Neutrophils # Seg Neutrophils # Man Lymphocytes # (Manual) Monocytes # (Manual) PT INR D-Dimer ABG pH POC ABG pCO2 POC ABG pO2 ABG pO2 ABG HCO3 ABG Base Excess ABG Hemoglobin ABG Oxyhemoglobin ABG Sodium ABG Potassium ABG Chloride ABG Glucose Carboxyhemoglobin Sodium Potassium Chloride Carbon Dioxide BUN 54 H Creatinine 4.7 H Glucose 218 H POC Glucose 180 H Lactic Acid Calcium Phosphorus Ferritin Total Bilirubin Direct Bilirubin AST ALT Lactate Dehydrogenase Total Creatine Kinase Troponin T Total Protein Albumin Triglycerides Arterial Blood Glucose Arterial Blood Ionized Calcium Urine pH Urine WBC (Auto) Urine Creatinine Salicylates Acetaminophen Coronavirus (PCR) 09/27/20 09/27/20 09/27/20 05:14 11:49 17:48 WBC RBC Hgb Hct MCHC RDW Lymph % (Auto) [place] % (Auto) Lymph # (Auto) [place] # (Auto) Seg Neutrophils % Seg Neuts % (Manual) Lymphocytes % (Manual) Monocytes % (Manual) Nucleated RBC % Seg Neutrophils # Seg Neutrophils # Man Lymphocytes # (Manual) Monocytes # (Manual) PT INR D-Dimer ABG pH POC ABG pCO2 POC ABG pO2 ABG pO2 ABG HCO3 ABG Base Excess ABG Hemoglobin ABG Oxyhemoglobin ABG Sodium ABG Potassium ABG Chloride ABG Glucose Carboxyhemoglobin Sodium Potassium Chloride Carbon Dioxide BUN Creatinine Glucose POC Glucose 197 H 219 H 203 H Lactic Acid Calcium Phosphorus Ferritin Total Bilirubin Direct Bilirubin AST ALT Lactate Dehydrogenase Total Creatine Kinase Troponin T Total Protein Albumin Triglycerides Arterial Blood Glucose Arterial Blood Ionized Calcium Urine pH Urine WBC (Auto) Urine Creatinine Salicylates Acetaminophen Coronavirus (PCR) 09/27/20 09/28/20 09/28/20 23:26 05:28 07:02 WBC RBC Hgb Hct MCHC RDW Lymph % (Auto) [place] % (Auto) Lymph # (Auto) [place] # (Auto) Seg Neutrophils % Seg Neuts % (Manual) Lymphocytes % (Manual) Monocytes % (Manual) Nucleated RBC % Seg Neutrophils # Seg Neutrophils # Man Lymphocytes # (Manual) Monocytes # (Manual) PT INR D-Dimer ABG pH POC ABG pCO2 POC ABG pO2 ABG pO2 ABG HCO3 ABG Base Excess ABG Hemoglobin ABG Oxyhemoglobin ABG Sodium ABG Potassium ABG Chloride ABG Glucose Carboxyhemoglobin Sodium Potassium Chloride Carbon Dioxide BUN 37 H Creatinine 3.8 H Glucose 270 H POC Glucose 243 H 227 H Lactic Acid Calcium Phosphorus Ferritin Total Bilirubin Direct Bilirubin AST ALT Lactate Dehydrogenase Total Creatine Kinase Troponin T Total Protein Albumin Triglycerides Arterial Blood Glucose Arterial Blood Ionized Calcium Urine pH Urine WBC (Auto) Urine Creatinine Salicylates Acetaminophen Coronavirus (PCR) 09/28/20 09/28/20 09/28/20 07:02 11:35 17:44 WBC RBC 3.26 L Hgb 9.3 L Hct 28.7 L MCHC RDW 18.5 H Lymph % (Auto) [place] % (Auto) 12.7 H Lymph # (Auto) [place] # (Auto) 1.1 H Seg Neutrophils % Seg Neuts % (Manual) Lymphocytes % (Manual) Monocytes % (Manual) Nucleated RBC % Seg Neutrophils # Seg Neutrophils # Man Lymphocytes # (Manual) Monocytes # (Manual) PT INR D-Dimer ABG pH POC ABG pCO2 POC ABG pO2 ABG pO2 ABG HCO3 ABG Base Excess ABG Hemoglobin ABG Oxyhemoglobin ABG Sodium ABG Potassium ABG Chloride ABG Glucose Carboxyhemoglobin Sodium Potassium Chloride Carbon Dioxide BUN Creatinine Glucose POC Glucose 230 H 237 H Lactic Acid Calcium Phosphorus Ferritin Total Bilirubin Direct Bilirubin AST ALT Lactate Dehydrogenase Total Creatine Kinase Troponin T Total Protein Albumin Triglycerides Arterial Blood Glucose Arterial Blood Ionized Calcium Urine pH Urine WBC (Auto) Urine Creatinine Salicylates Acetaminophen Coronavirus (PCR) 09/28/20 09/29/20 09/29/20 23:52 05:11 05:20 WBC RBC Hgb Hct MCHC RDW Lymph % (Auto) [place] % (Auto) Lymph # (Auto) [place] # (Auto) Seg Neutrophils % Seg Neuts % (Manual) Lymphocytes % (Manual) Monocytes % (Manual) Nucleated RBC % Seg Neutrophils # Seg Neutrophils # Man Lymphocytes # (Manual) Monocytes # (Manual) PT INR D-Dimer ABG pH POC ABG pCO2 POC ABG pO2 ABG pO2 ABG HCO3 ABG Base Excess ABG Hemoglobin ABG Oxyhemoglobin ABG Sodium ABG Potassium ABG Chloride ABG Glucose Carboxyhemoglobin Sodium Potassium Chloride Carbon Dioxide BUN 47 H Creatinine 4.2 H Glucose 289 H POC Glucose 261 H 254 H Lactic Acid Calcium Phosphorus Ferritin Total Bilirubin Direct Bilirubin AST ALT Lactate Dehydrogenase Total Creatine Kinase Troponin T Total Protein Albumin Triglycerides Arterial Blood Glucose Arterial Blood Ionized Calcium Urine pH Urine WBC (Auto) Urine Creatinine Salicylates Acetaminophen Coronavirus (PCR) 09/29/20 09/29/20 09/29/20 05:20 11:55 17:13 WBC RBC 3.23 L Hgb 9.0 L Hct 27.7 L MCHC RDW 18.3 H Lymph % (Auto) 13.0 L [place] % (Auto) 13.8 H Lymph # (Auto) [place] # (Auto) 1.5 H Seg Neutrophils % 72.3 H Seg Neuts % (Manual) Lymphocytes % (Manual) Monocytes % (Manual) Nucleated RBC % Seg Neutrophils # Seg Neutrophils # Man Lymphocytes # (Manual) Monocytes # (Manual) PT INR D-Dimer ABG pH POC ABG pCO2 POC ABG pO2 ABG pO2 ABG HCO3 ABG Base Excess ABG Hemoglobin ABG Oxyhemoglobin ABG Sodium ABG Potassium ABG Chloride ABG Glucose Carboxyhemoglobin Sodium Potassium Chloride Carbon Dioxide BUN Creatinine Glucose POC Glucose 263 H 279 H Lactic Acid Calcium Phosphorus Ferritin Total Bilirubin Direct Bilirubin AST ALT Lactate Dehydrogenase Total Creatine Kinase Troponin T Total Protein Albumin Triglycerides Arterial Blood Glucose Arterial Blood Ionized Calcium Urine pH Urine WBC (Auto) Urine Creatinine Salicylates Acetaminophen Coronavirus (PCR) 09/29/20 09/30/20 09/30/20 23:25 05:15 06:57 WBC RBC 3.14 L Hgb 9.0 L Hct 27.4 L MCHC RDW 18.5 H Lymph % (Auto) [place] % (Auto) Lymph # (Auto) [place] # (Auto) Seg Neutrophils % Seg Neuts % (Manual) Lymphocytes % (Manual) Monocytes % (Manual) 13.0 H Nucleated RBC % Seg Neutrophils # Seg Neutrophils # Man Lymphocytes # (Manual) Monocytes # (Manual) 1.1 H PT INR D-Dimer ABG pH POC ABG pCO2 POC ABG pO2 ABG pO2 ABG HCO3 ABG Base Excess ABG Hemoglobin ABG Oxyhemoglobin ABG Sodium ABG Potassium ABG Chloride ABG Glucose Carboxyhemoglobin Sodium Potassium Chloride Carbon Dioxide BUN Creatinine Glucose POC Glucose 284 H 283 H Lactic Acid Calcium Phosphorus Ferritin Total Bilirubin Direct Bilirubin AST ALT Lactate Dehydrogenase Total Creatine Kinase Troponin T Total Protein Albumin Triglycerides Arterial Blood Glucose Arterial Blood Ionized Calcium Urine pH Urine WBC (Auto) Urine Creatinine Salicylates Acetaminophen Coronavirus (PCR) 09/30/20 09/30/20 09/30/20 11:54 17:28 23:34 WBC RBC Hgb Hct MCHC RDW Lymph % (Auto) [place] % (Auto) Lymph # (Auto) [place] # (Auto) Seg Neutrophils % Seg Neuts % (Manual) Lymphocytes % (Manual) Monocytes % (Manual) Nucleated RBC % Seg Neutrophils # Seg Neutrophils # Man Lymphocytes # (Manual) Monocytes # (Manual) PT INR D-Dimer ABG pH POC ABG pCO2 POC ABG pO2 ABG pO2 ABG HCO3 ABG Base Excess ABG Hemoglobin ABG Oxyhemoglobin ABG Sodium ABG Potassium ABG Chloride ABG Glucose Carboxyhemoglobin Sodium Potassium Chloride Carbon Dioxide BUN Creatinine Glucose POC Glucose 288 H 262 H 258 H Lactic Acid Calcium Phosphorus Ferritin Total Bilirubin Direct Bilirubin AST ALT Lactate Dehydrogenase Total Creatine Kinase Troponin T Total Protein Albumin Triglycerides Arterial Blood Glucose Arterial Blood Ionized Calcium Urine pH Urine WBC (Auto) Urine Creatinine Salicylates Acetaminophen Coronavirus (PCR) 10/01/20 10/01/20 10/01/20 04:33 04:49 05:30 WBC RBC 2.87 L Hgb 8.2 L Hct 24.9 L MCHC RDW 18.2 H Lymph % (Auto) [place] % (Auto) Lymph # (Auto) [place] # (Auto) 1.2 H Seg Neutrophils % Seg Neuts % (Manual) Lymphocytes % (Manual) Monocytes % (Manual) Nucleated RBC % Seg Neutrophils # Seg Neutrophils # Man Lymphocytes # (Manual) Monocytes # (Manual) PT INR D-Dimer ABG pH POC ABG pCO2 POC ABG pO2 ABG pO2 ABG HCO3 ABG Base Excess ABG Hemoglobin 10.0 L ABG Oxyhemoglobin ABG Sodium ABG Potassium ABG Chloride ABG Glucose 270 H Carboxyhemoglobin Sodium Potassium Chloride Carbon Dioxide BUN Creatinine Glucose POC Glucose 219 H Lactic Acid Calcium Phosphorus Ferritin Total Bilirubin Direct Bilirubin AST ALT Lactate Dehydrogenase Total Creatine Kinase Troponin T Total Protein Albumin Triglycerides Arterial Blood Glucose 270 H Arterial Blood Ionized Calcium Urine pH Urine WBC (Auto) Urine Creatinine Salicylates Acetaminophen Coronavirus (PCR) 10/01/20 10/01/20 10/01/20 12:10 16:32 23:36 WBC RBC Hgb Hct MCHC RDW Lymph % (Auto) [place] % (Auto) Lymph # (Auto) [place] # (Auto) Seg Neutrophils % Seg Neuts % (Manual) Lymphocytes % (Manual) Monocytes % (Manual) Nucleated RBC % Seg Neutrophils # Seg Neutrophils # Man Lymphocytes # (Manual) Monocytes # (Manual) PT INR D-Dimer ABG pH POC ABG pCO2 POC ABG pO2 ABG pO2 ABG HCO3 ABG Base Excess ABG Hemoglobin ABG Oxyhemoglobin ABG Sodium ABG Potassium ABG Chloride ABG Glucose Carboxyhemoglobin Sodium Potassium Chloride Carbon Dioxide BUN Creatinine Glucose POC Glucose 266 H 259 H 262 H Lactic Acid Calcium Phosphorus Ferritin Total Bilirubin Direct Bilirubin AST ALT Lactate Dehydrogenase Total Creatine Kinase Troponin T Total Protein Albumin Triglycerides Arterial Blood Glucose Arterial Blood Ionized Calcium Urine pH Urine WBC (Auto) Urine Creatinine Salicylates Acetaminophen Coronavirus (PCR) 10/02/20 10/02/20 10/02/20 00:58 05:29 10:16 WBC RBC Hgb Hct MCHC RDW Lymph % (Auto) [place] % (Auto) Lymph # (Auto) [place] # (Auto) Seg Neutrophils % Seg Neuts % (Manual) Lymphocytes % (Manual) Monocytes % (Manual) Nucleated RBC % Seg Neutrophils # Seg Neutrophils # Man Lymphocytes # (Manual) Monocytes # (Manual) PT INR D-Dimer ABG pH 7.468 H POC ABG pCO2 POC ABG pO2 72.9 L ABG pO2 ABG HCO3 ABG Base Excess ABG Hemoglobin 10.1 L ABG Oxyhemoglobin 93.1 L ABG Sodium ABG Potassium ABG Chloride 108.0 H ABG Glucose 289 H Carboxyhemoglobin Sodium Potassium Chloride Carbon Dioxide BUN 58 H Creatinine 5.0 H Glucose 324 H POC Glucose 260 H Lactic Acid Calcium Phosphorus Ferritin Total Bilirubin Direct Bilirubin AST ALT Lactate Dehydrogenase Total Creatine Kinase Troponin T Total Protein Albumin Triglycerides Arterial Blood Glucose 289 H Arterial Blood Ionized Calcium Urine pH Urine WBC (Auto) Urine Creatinine Salicylates Acetaminophen Coronavirus (PCR) 10/02/20 10/02/20 10/03/20 11:29 17:55 00:11 WBC RBC Hgb Hct MCHC RDW Lymph % (Auto) [place] % (Auto) Lymph # (Auto) [place] # (Auto) Seg Neutrophils % Seg Neuts % (Manual) Lymphocytes % (Manual) Monocytes % (Manual) Nucleated RBC % Seg Neutrophils # Seg Neutrophils # Man Lymphocytes # (Manual) Monocytes # (Manual) PT INR D-Dimer ABG pH POC ABG pCO2 POC ABG pO2 ABG pO2 ABG HCO3 ABG Base Excess ABG Hemoglobin ABG Oxyhemoglobin ABG Sodium ABG Potassium ABG Chloride ABG Glucose Carboxyhemoglobin Sodium Potassium Chloride Carbon Dioxide BUN Creatinine Glucose POC Glucose 268 H 210 H 172 H Lactic Acid Calcium Phosphorus Ferritin Total Bilirubin Direct Bilirubin AST ALT Lactate Dehydrogenase Total Creatine Kinase Troponin T Total Protein Albumin Triglycerides Arterial Blood Glucose Arterial Blood Ionized Calcium Urine pH Urine WBC (Auto) Urine Creatinine Salicylates Acetaminophen Coronavirus (PCR) 10/03/20 10/03/20 10/03/20 06:01 12:13 12:21 WBC RBC Hgb Hct MCHC RDW Lymph % (Auto) [place] % (Auto) Lymph # (Auto) [place] # (Auto) Seg Neutrophils % Seg Neuts % (Manual) Lymphocytes % (Manual) Monocytes % (Manual) Nucleated RBC % Seg Neutrophils # Seg Neutrophils # Man Lymphocytes # (Manual) Monocytes # (Manual) PT INR D-Dimer ABG pH POC ABG pCO2 POC ABG pO2 ABG pO2 ABG HCO3 ABG Base Excess ABG Hemoglobin ABG Oxyhemoglobin ABG Sodium ABG Potassium ABG Chloride ABG Glucose Carboxyhemoglobin Sodium 133 L D Potassium Chloride 97.7 L Carbon Dioxide BUN 47 H Creatinine 3.8 H Glucose 345 H POC Glucose 186 H 305 H Lactic Acid Calcium Phosphorus Ferritin Total Bilirubin Direct Bilirubin AST ALT Lactate Dehydrogenase Total Creatine Kinase Troponin T Total Protein Albumin Triglycerides Arterial Blood Glucose Arterial Blood Ionized Calcium Urine pH Urine WBC (Auto) Urine Creatinine Salicylates Acetaminophen Coronavirus (PCR) 10/03/20 10/03/20 10/03/20 16:23 16:57 22:52 WBC RBC Hgb Hct MCHC RDW Lymph % (Auto) [place] % (Auto) Lymph # (Auto) [place] # (Auto) Seg Neutrophils % Seg Neuts % (Manual) Lymphocytes % (Manual) Monocytes % (Manual) Nucleated RBC % Seg Neutrophils # Seg Neutrophils # Man Lymphocytes # (Manual) Monocytes # (Manual) PT INR D-Dimer ABG pH POC ABG pCO2 POC ABG pO2 ABG pO2 ABG HCO3 ABG Base Excess ABG Hemoglobin ABG Oxyhemoglobin ABG Sodium ABG Potassium ABG Chloride ABG Glucose Carboxyhemoglobin Sodium Potassium Chloride Carbon Dioxide BUN Creatinine Glucose POC Glucose 248 H 245 H 169 H Lactic Acid Calcium Phosphorus Ferritin Total Bilirubin Direct Bilirubin AST ALT Lactate Dehydrogenase Total Creatine Kinase Troponin T Total Protein Albumin Triglycerides Arterial Blood Glucose Arterial Blood Ionized Calcium Urine pH Urine WBC (Auto) Urine Creatinine Salicylates Acetaminophen Coronavirus (PCR) 10/04/20 10/04/20 10/04/20 01:31 06:31 10:32 WBC RBC 2.65 L Hgb 7.8 L Hct 23.0 L MCHC RDW 18.2 H Lymph % (Auto) [place] % (Auto) Lymph # (Auto) [place] # (Auto) Seg Neutrophils % Seg Neuts % (Manual) Lymphocytes % (Manual) Monocytes % (Manual) 14.0 H Nucleated RBC % Seg Neutrophils # Seg Neutrophils # Man Lymphocytes # (Manual) Monocytes # (Manual) 1.2 H PT INR D-Dimer ABG pH POC ABG pCO2 POC ABG pO2 ABG pO2 ABG HCO3 ABG Base Excess ABG Hemoglobin ABG Oxyhemoglobin ABG Sodium ABG Potassium ABG Chloride ABG Glucose Carboxyhemoglobin Sodium 136 L Potassium Chloride Carbon Dioxide BUN 53 H Creatinine 4.6 H Glucose 184 H POC Glucose 200 H Lactic Acid Calcium Phosphorus Ferritin Total Bilirubin Direct Bilirubin AST ALT Lactate Dehydrogenase Total Creatine Kinase Troponin T Total Protein Albumin Triglycerides Arterial Blood Glucose Arterial Blood Ionized Calcium Urine pH Urine WBC (Auto) Urine Creatinine Salicylates Acetaminophen Coronavirus (PCR) 10/04/20 10/04/20 10/04/20 11:47 16:20 23:22 WBC RBC Hgb Hct MCHC RDW Lymph % (Auto) [place] % (Auto) Lymph # (Auto) [place] # (Auto) Seg Neutrophils % Seg Neuts % (Manual) Lymphocytes % (Manual) Monocytes % (Manual) Nucleated RBC % Seg Neutrophils # Seg Neutrophils # Man Lymphocytes # (Manual) Monocytes # (Manual) PT INR D-Dimer ABG pH POC ABG pCO2 POC ABG pO2 ABG pO2 ABG HCO3 ABG Base Excess ABG Hemoglobin ABG Oxyhemoglobin ABG Sodium ABG Potassium ABG Chloride ABG Glucose Carboxyhemoglobin Sodium Potassium Chloride Carbon Dioxide BUN Creatinine Glucose POC Glucose 206 H 187 H 249 H Lactic Acid Calcium Phosphorus Ferritin Total Bilirubin Direct Bilirubin AST ALT Lactate Dehydrogenase Total Creatine Kinase Troponin T Total Protein Albumin Triglycerides Arterial Blood Glucose Arterial Blood Ionized Calcium Urine pH Urine WBC (Auto) Urine Creatinine Salicylates Acetaminophen Coronavirus (PCR) 10/05/20 10/05/20 10/05/20 00:19 05:19 09:15 WBC RBC Hgb Hct MCHC RDW Lymph % (Auto) [place] % (Auto) Lymph # (Auto) [place] # (Auto) Seg Neutrophils % Seg Neuts % (Manual) Lymphocytes % (Manual) Monocytes % (Manual) Nucleated RBC % Seg Neutrophils # Seg Neutrophils # Man Lymphocytes # (Manual) Monocytes # (Manual) PT INR D-Dimer ABG pH POC ABG pCO2 POC ABG pO2 ABG pO2 ABG HCO3 ABG Base Excess ABG Hemoglobin ABG Oxyhemoglobin ABG Sodium ABG Potassium ABG Chloride ABG Glucose Carboxyhemoglobin Sodium 132 L Potassium Chloride 96.7 L Carbon Dioxide BUN 44 H Creatinine 3.9 H Glucose 252 H POC Glucose 218 H Lactic Acid Calcium Phosphorus Ferritin Total Bilirubin Direct Bilirubin AST ALT Lactate Dehydrogenase Total Creatine Kinase Troponin T Total Protein Albumin Triglycerides Arterial Blood Glucose Arterial Blood Ionized Calcium Urine pH Urine WBC (Auto) 13.0 H Urine Creatinine Salicylates Acetaminophen Coronavirus (PCR)
--- NOTE | 2020-10-05 13:46 | Progress Note ---
Assessment and Plan Assessment and plan: S/p cardiopulmonary arrest (out of hospital) Now poorly responsive with brain damage/anoxic brain injury #Toxic metabolic encephalopathy +/-anoxic injury Persists Now has trach and PEG #Acute hypoxic respiratory failure Continue oxygen supplementation #Nonoliguric acute kidney injury secondary to ATN. Patient status post emergent hemodialysis 09/08. Continue hemodialysis as scheduled #Seizure disorder Keppra 1500 twice daily Depakote 1000 mg twice daily #COVID-19 pneumonia Status post COVID-19 treatment #Fever Remains febrile Repeat blood cultures ordered Chest x-ray, urinalysis #Diabetes mellitus Glargine 25 units daily Lispro sliding scale #Hypertension Hydralazine 3 times daily DVT prophylaxis Full code Disposition-family trying to consider hospice. Patient will need [facility] approval prior to this as per case therapist. 09/15/2020. MRI brain for further evaluation. Continue AEDs of valproic acid and Keppra. Continue hemodialysis per nephrology recommendations. Overall prognosis remains guarded and poor. 09/16/2020. ID recommends continue to monitor patient off of antibiotics. Fever most likely of central etiology. Patient with questionable seizures versus myoclonus from anoxic brain injury. Patient unable to undergo MRI due to body habitus. Continue AEDs per neurology recommendations. Inflammatory markers elevated. Patient was recently hospitalized for COVID-19 pneumonia at the [facility] prior to being hospitalized here. Patient not a candidate for remdesivir due to hepatic and renal failure. Viral hepatitis panel negative. Overall prognosis extremely poor. 09/17/2020. Fevers have resolved over the past 48 hours. Continue to monitor off antibiotics per ID recommendations. Patient with questionable seizures versus myoclonus from anoxic brain injury. Patient unable to undergo MRI due to body habitus. EEG is nonspecific but given CT of head findings consistent with anoxic encephalopathy, brain injury. Continue AEDs per neurology recommendations. Inflammatory markers elevated. Patient was recently hospitalized for COVID-19 pneumonia at the [facility] prior to being hospitalized here. Patient not a candidate for remdesivir due to hepatic and renal failure. Viral hepatitis panel negative. Patient is s/p emergent HD on Friday (hyperK) and Friday - 09/08. Patient also S/p HD 09/15. Continue hemodialysis per nephrology recommendations. Patient currently on AC/PRVC mode ventilation with rate of 30, tidal volume 475, FiO2 30% and PEEP of 6. As stated in neuro note, overall prognosis is very poor. 09/18/2020. Fevers have resolved over the past 72 hours. Continue to monitor off antibiotics per ID recommendations. Leukocytosis persistent for the past 4 days. Patient with questionable seizures/myoclonus from anoxic brain injury. Patient unable to undergo MRI due to body habitus. EEG is nonspecific but given CT of head findings consistent with anoxic encephalopathy, brain injury. Continue AEDs per neurology recommendations. Inflammatory markers elevated. Patient was recently hospitalized for COVID-19 pneumonia at the [facility] to being hospitalized here. Patient not a candidate for remdesivir due to hepatic and renal failure. Viral hepatitis panel negative. Patient currently on AC/PRVC mode ventilation with rate of 30, tidal volume 475, FiO2 30% and PEEP of 6. Overall prognosis remains guarded/poor. 09/19/2020 Fevers have resolved over the past 4 days. Continue to monitor off antibiotics per ID recommendations. Leukocytosis persistent for the past 4 days. Patient with questionable seizures/myoclonus from anoxic brain injury. Patient unable to undergo MRI due to body habitus. EEG is nonspecific but given CT of head fin dings consistent with anoxic encephalopathy, brain injury. Continue AEDs per neurology recommendations. Inflammatory markers elevated. Patient was recently hospitalized for COVID-19 pneumonia at the [facility] prior to being hospitalized here. Patient not a candidate for remdesivir due to hepatic and renal failure. Viral hepatitis panel negative. Patient currently on AC/PRVC mode ventilation with ra te of 30, tidal volume 475, FiO2 30% and PEEP of 6. Overall prognosis remains guarded/poor. 09/20/2020 -Surgery consulted for PEG and trach, will continue to follow. 09/21/2020; patient will have PEG and trach by Dr. hayes today. Prognosis is poor. Continue with current management. Software Team Leader is following for vent management. 09/22/2020; patient had PEG and trach yesterday. 09/23/2020; continue PEG Tube Feeding. 09/24/2020; continue PEG tube feeding, patient is on Keppra, lorazepam and p henytoin per neurology recommendation. Patient is on hemodialysis and nephrology is following. Management of mechanical ventilation for CCM. 09/25/2020. Continue PEG tube feeding, patient is on Keppra, lorazepam and phenytoin per neurology recommendation. Patient is on hemodialysis and nephrology is following. Management of mechanical ventilation for CCM. Continue PSV/CPAP /. Continue tracheostomy care, secretion control and airway management. 09/26/2020. Patient has tolerated PSV for approximately 48 hours. I discussed with pulmonary possibility of T-piece today. Continue tracheostomy care, secretion control and airway management. If patient tolerates T-piece trials, patient will be transferred to the floor. Continue AEDs of Keppra and phenytoin as well as Ativan as needed per neurology recommendations. Continue hemodialysis per nephrology. Continue TF with aspiration precautions. 09/27/2020. Patient continues to tolerate PSV /6 at 30% FiO2. T-piece trials per pulmonary. Continue tracheostomy care, secretion control and airway management. Continue AEDs of Keppra and phenytoin as well as Ativan as needed per neurology recommendations. Continue hemodialysis per nephrology. Continue TF with aspiration precautions. 09/28/2020. Patient for T-piece trials per pulmonary. Continue hemodialysis per nephrology. Continue tracheostomy care, secretion control and airway management. Continue AEDs of Keppra and phenytoin as well as Ativan as needed per neurology recommendations. Continue TF with aspiration precautions. 09/29/2020, continue T-piece trials per pulmonary. Continue hemodialysis per nephrology. Continue strict I/O's and labs daily. Monitor for renal recovery. 09/30/2020. Continue T-piece trials per pulmonary recommendations. Continue tracheostomy care, secretion control and airway management. Continue hemodialysis per nephrology. Tight glycemic control. Continue TF with aspiration precautions. 10/01/2020. Patient with T-piece trials and tolerating. Wean to trach collar per pulmonary. Continue tracheostomy care, secretion control and airway management. Continue hemodialysis per nephrology. Tight glycemic control. Continue TF with aspiration precautions. Case management consultation for placement 10/02/20. Continue T-piece trials per pulmonary recommendations. Continue tracheostomy care, secretion control and airway management. Continue hemodialysis per nephrology. Tight glycemic control. Continue TF with aspiration precautions. 10/03/2020. Continue T-piece trials per pulmonology. Continue tracheostomy care, secretion control and airway management. Continue modalities per nephrology. Discharge planning underway. Needs placement to SNF versus hospice. 10/04/2020. Patient remained febrile with temperature 101 F. Ordered blood culture, chest x-ray, urinalysis. Plan to start antibiotics after blood cult ures been obtained. Patient remains hemodynamically stable. Plan to discharge to SNF versus inpatient hospice on the way. 10/05/2020. Started on antibiotics yesterday. Awaiting blood culture. He d eveloped atrial fibrillation with RVR and was placed on amiodaronoe drip with subsequent conversion to SR. Now on amiodarone PO. Discussed with patients - she would like him to go inpatient hospice or a [facility] facility. As per CM, [facility] not approving LTC placement at this time. As is still undecided about hospice, inpatient hospice is not accepting h im at this time. has placed a referral to a SNF with inpatient dialysis. Awaiting response from the SNF. History Interval history: 65 y/o male with out of hospital cardiac arrest, acute hypoxic respiratory failure and COVID-19 infection. Hospitalist Physical - Physical exam Narrative exam: VITAL SIGNS: Reviewed. GENERAL: Not responsive HEAD: No signs of head trauma. EYES: Closed MOUTH: Oropharynx is normal. NECK: No adenopathy, no JVD. CHEST: Diminished breath sounds with crackles bilaterally CARDIAC: normal S1 and S2, without murmurs, gallops, or rubs. ABDOMEN: Soft, non tender and non distended. No rebound or guarding, and no masses palpated. Bowel Sounds normal. MUSCULOSKELETAL: Bilateral leg edema NEUROLOGIC EXAM: Not responsive SKIN: No obvious lesions - Constitutional Vitals: Temp Pulse Resp BP Pulse Ox 100.1 F H 74 31 H 128/59 100 10/05/20 03:52 10/05/20 12:00 10/05/20 12:00 10/05/20 12:00 10/05/20 12:00 HEART Score - HEART Score Troponin: Troponin T 0.076 ng/mL (0.00-0.029) H 09/07/20 14:00 Results - Labs CBC & Chem 7: 10/04/20 10:32 10/05/20 00:19 Labs: Laboratory Last Values WBC 8.8 K/mm3 (4.5-11.0) 10/04/20 10:32 RBC 2.65 M/mm3 (3.65-5.03) L 10/04/20 10:32 Hgb 7.8 gm/dl (11.8-15.2) L 10/04/20 10:32 Hct 23.0 % (35.5-45.6) L 10/04/20 10:32 MCV 87 fl (84-94) 10/04/20 10:32 MCH 29 pg (28-32) 10/04/20 10:32 MCHC 34 % (32-34) 10/04/20 10:32 RDW 18.2 % (13.2-15.2) H 10/04/20 10:32 Plt Count 171 K/mm3 (140-440) 10/04/20 10:32 Lymph % (Auto) 27.0 % (13.4-35.0) 10/01/20 04:33 [place] % (Auto) Environment Coordinator 10/04/20 10:32 Eos % (Auto) 1.4 % (0.0-4.3) 10/01/20 04:33 Baso % (Auto) 0.3 % (0.0-1.8) 10/01/20 04:33 Lymph # (Auto) 1.9 K/mm3 (1.2-5.4) 10/01/20 04:33 [place] # (Auto) 1.2 K/mm3 (0.0-0.8) H 10/01/20 04:33 Eos # (Auto) 0.1 K/mm3 (0.0-0.4) 10/01/20 04:33 Baso # (Auto) 0.0 K/mm3 (0.0-0.1) 10/01/20 04:33 Add Manual Diff Complete 10/04/20 10:32 Total Counted 100 10/04/20 10:32 Seg Neutrophils % 54.7 % (40.0-70.0) 10/01/20 04:33 Seg Neuts % (Manual) 53.0 % (40.0-70.0) 10/04/20 10:32 Band Neutrophils % 8.0 % 09/30/20 06:57 Lymphocytes % (Manual) 31.0 % (13.4-35.0) 10/04/20 10:32 Monocytes % (Manual) 14.0 % (0.0-7.3) H 10/04/20 10:32 Eosinophils % (Manual) 2.0 % (0.0-4.3) 10/04/20 10:32 Basophils % (Manual) 1.0 % (0.0-1.8) 09/30/20 06:57 Metamyelocytes % 2.0 % 09/08/20 Unknown Promyelocytes % 0 % 10/04/20 10:32 Nucleated RBC % Not Reportable 10/04/20 10:32 Seg Neutrophils # 3.9 K/mm3 (1.8-7.7) 10/01/20 04:33 Seg Neutrophils # Man 4.7 K/mm3 (1.8-7.7) 10/04/20 10:32 Band Neutrophils # 0.0 K/mm3 10/04/20 10:32 Lymphocytes # (Manual) 2.7 K/mm3 (1.2-5.4) 10/04/20 10:32 Abs React Lymphs (Man) 0.0 K/mm3 10/04/20 10:32 Monocytes # (Manual) 1.2 K/mm3 (0.0-0.8) H 10/04/20 10:32 Eosinophils # (Manual) 0.2 K/mm3 (0.0-0.4) 10/04/20 10:32 Basophils # (Manual) 0.0 K/mm3 (0.0-0.1) 10/04/20 10:32 Metamyelocytes # 0.0 K/mm3 10/04/20 10:32 Myelocytes # 0.0 K/mm3 10/04/20 10:32 Promyelocytes # 0.0 K/mm3 10/04/20 10:32 Blast Cells # 0.0 K/mm3 10/04/20 10:32 WBC Morphology Not Reportable 10/04/20 10:32 Hypersegmented Neuts Not Reportable 10/04/20 10:32 Hyposegmented Neuts Not Reportable 10/04/20 10:32 Hypogranular Neuts Not Reportable 10/04/20 10:32 Smudge Cells Not Reportable 10/04/20 10:32 Toxic Granulation Not Reportable 10/04/20 10:32 Toxic Vacuolation Not Reportable 10/04/20 10:32 Dohle Bodies Not Reportable 10/04/20 10:32 Pelger-Huet Anomaly Not Reportable 10/04/20 10:32 Justus Rods Not Reportable 10/04/20 10:32 Platelet Estimate Consistent w auto 10/04/20 10:32 Clumped Platelets Not Reportable 10/04/20 10:32 Plt Clumps, EDTA Not Reportable 10/04/20 10:32 Large Platelets Not Reportable 10/04/20 10:32 Giant Platelets Not Reportable 10/04/20 10:32 Platelet Satelliting Not Reportable 10/04/20 10:32 Plt Morphology Comment Not Reportable 10/04/20 10:32 RBC Morphology Not Reportable 10/04/20 10:32 Dimorphic RBCs Not Reportable 10/04/20 10:32 Polychromasia Not Reportable 10/04/20 10:32 Hypochromasia Not Reportable 10/04/20 10:32 Poikilocytosis Not Reportable 10/04/20 10:32 Anisocytosis 1+ 10/04/20 10:32 Microcytosis Not Reportable 10/04/20 10:32 Macrocytosis Not Reportable 10/04/20 10:32 Spherocytes Not Reportable 10/04/20 10:32 Pappenheimer Bodies Not Reportable 10/04/20 10:32 Sickle Cells Not Reportable 10/04/20 10:32 Target Cells Not Reportable 10/04/20 10:32 Tear Drop Cells Not Reportable 10/04/20 10:32 Ovalocytes Not Reportable 10/04/20 10:32 Helmet Cells Not Reportable 10/04/20 10:32 [place] Bodies Not Reportable 10/04/20 10:32 [place] Rings Not Reportable 10/04/20 10:32 Manjit Cells Not Reportable 10/04/20 10:32 Bite Cells Not Reportable 10/04/20 10:32 Crenated Cell Not Reportable 10/04/20 10:32 Elliptocytes Not Reportable 10/04/20 10:32 Acanthocytes (Spur) Not Reportable 10/04/20 10:32 Rouleaux Not Reportable 10/04/20 10:32 Hemoglobin C Crystals Not Reportable 10/04/20 10:32 Schistocytes Not Reportable 10/04/20 10:32 Malaria parasites Not Reportable 10/04/20 10:32 [place] Bodies Not Reportable 10/04/20 10:32 Hem Pathologist Commnt No 10/04/20 10:32 PT 16.1 Sec. (12.2-14.9) H 09/12/20 04:00 INR 1.31 (0.87-1.13) H 09/12/20 04:00 APTT 32.4 Sec. (24.2-36.6) 09/09/20 10:00 D-Dimer 8315.85 ng/mlDDU (0-234) H 09/07/20 14:00 ABG pH 7.468 (7.320-7.450) H 10/02/20 10:16 POC ABG pCO2 37.1 mmHg (32.0-48.0) 10/02/20 10:16 ABG pCO2 33.4 mm Hg 09/11/20 05:40 POC ABG pO2 72.9 mmHg (83-108) L 10/02/20 10:16 ABG pO2 112.1 mm Hg (80.0-90.0) H 09/11/20 05:40 POC ABG HCO3 26.3 10/02/20 10:16 ABG HCO3 28.1 mmol/L (20.0-26.0) H 09/11/20 05:40 ABG O2 Saturation 98.4 % (95.0-99.0) 09/11/20 05:40 ABG O2 Content 11.6 (0.0-44) 09/11/20 05:40 POC ABG Base Excess 2.6 10/02/20 10:16 ABG Base Excess 5.4 mmol/L (-2.0-3.0) H 09/11/20 05:40 ABG Hemoglobin 10.1 (12.0-17.5) L 10/02/20 10:16 ABG Oxyhemoglobin 93.1 (94-98) L 10/02/20 10:16 ABG Carboxyhemoglobin 1.2 % (0.0-5.0) 09/11/20 05:40 ABG Methemoglobin 0.3 (0.0-1.5) 10/02/20 10:16 ABG Sodium 138.5 mmol/L (136.0-145.0) 10/02/20 10:16 ABG Potassium 3.9 mmol/L (3.40-4.50) 10/02/20 10:16 ABG Chloride 108.0 mmol/L (98-107) H 10/02/20 10:16 ABG Glucose 289 mg/dL (65-95) H 10/02/20 10:16 Oxyhemoglobin 96.8 % (95.0-99.0) 09/11/20 05:40 Carboxyhemoglobin 0.8 (0.5-1.5) 10/02/20 10:16 FiO2 35 10/02/20 10:16 Sodium 132 mmol/L (137-145) L 10/05/20 00:19 Potassium 3.8 mmol/L (3.6-5.0) 10/05/20 00:19 Chloride 96.7 mmol/L (98-107) L 10/05/20 00:19 Carbon Dioxide 27 mmol/L (22-30) 10/05/20 00:19 Anion Gap 12 mmol/L 10/05/20 00:19 BUN 44 mg/dL (9-20) H 10/05/20 00:19 Creatinine 3.9 mg/dL (0.8-1.3) H 10/05/20 00:19 Estimated GFR 19 ml/min 10/05/20 00:19 BUN/Creatinine Ratio 11 % 10/05/20 00:19 Glucose 252 mg/dL (75-100) H 10/05/20 00:19 POC Glucose 218 mg/dL (70-105) H 10/05/20 05:19 Lactic Acid 2.90 mmol/L (0.7-2.0) H* 09/17/20 13:52 Calcium 9.2 mg/dL (8.4-10.2) 10/05/20 00:19 Phosphorus 8.00 mg/dL (2.5-4.5) H 09/08/20 12:02 Magnesium 1.80 mg/dL (1.7-2.3) 09/08/20 12:02 Ferritin > 2000.0 ng/mL (30.0-300.0) H 09/07/20 14:00 Total Bilirubin 0.50 mg/dL (0.1-1.2) 09/25/20 05:18 Direct Bilirubin 0.5 mg/dL (0-0.2) H 09/08/20 05:00 Indirect Bilirubin 0.5 mg/dL 09/08/20 05:00 AST 55 units/L (5-40) H 09/25/20 05:18 ALT 74 units/L (7-56) H 09/25/20 05:18 Alkaline Phosphatase 81 units/L (35-129) 09/25/20 05:18 Ammonia 50.0 umol/L (25-60) 09/07/20 14:00 Lactate Dehydrogenase 882 units/L (91-180) H 09/07/20 14:00 Total Creatine Kinase 477 units/L (55-170) H 09/07/20 14:00 Troponin T 0.076 ng/mL (0.00-0.029) H 09/07/20 14:00 C-Reactive Protein 1.10 mg/dL (0.00-1.30) 09/07/20 14:00 Total Protein 7.0 g/dL (6.3-8.2) 09/25/20 05:18 Albumin 2.6 g/dL (3.9-5) L 09/25/20 05:18 Albumin/Globulin Ratio 0.6 % 09/25/20 05:18 Triglycerides 220 mg/dL (2-149) H 09/12/20 Unknown Procalcitonin 1.16 ng/mL (<0.15) 10/04/20 10:32 TSH 2.290 mlU/mL (0.270-4.200) 09/07/20 14:00 Arterial Blood Glucose 289 mg/dL (65-95) H 10/02/20 10:16 Arterial Blood Ionized Calcium 5.2 mg/dL (4.6-5.3) 10/02/20 10:16 Urine Color Yellow (Yellow) 10/05/20 09:15 Urine Turbidity Slightly-cloudy (Clear) 10/05/20 09:15 Urine pH 5.0 (5.0-7.0) 10/05/20 09:15 Ur Specific [place] 1.015 (1.003-1.030) 10/05/20 09:15 Urine Protein 30 mg/dl mg/dL (Negative) 10/05/20 09:15 Urine Glucose (UA) Neg mg/dL (Negative) 10/05/20 09:15 Urine Ketones Neg mg/dL (Negative) 10/05/20 09:15 Urine Blood Sm (Negative) 10/05/20 09:15 Urine Nitrite Neg (Negative) 10/05/20 09:15 Urine Bilirubin Neg (Negative) 10/05/20 09:15 Urine Urobilinogen < 2.0 mg/dL (<2.0) 10/05/20 09:15 Ur Leukocyte Esterase Neg (Negative) 10/05/20 09:15 Urine WBC (Auto) 13.0 /HPF (0.0-6.0) H 10/05/20 09:15 Urine RBC (Auto) 19.0 /HPF (0.0-6.0) 10/05/20 09:15 U Epithel Cells (Auto) 6.0 /HPF (0-13.0) 10/05/20 09:15 Urine Bacteria (Auto) 2+ /HPF (Negative) 10/05/20 09:15 Hyaline Casts 1 /LPF 10/05/20 09:15 Urine Mucus Few /HPF 10/05/20 09:15 Urine Yeast (Budding) 3+ /HPF 10/05/20 09:15 Urine Sperm 3+ /HPF (DRY END OPERATOR) 09/07/20 13:08 Urine Creatinine 182.4 mg/dL (0.1-20.0) H 09/08/20 Unknown Urine Sodium 40 mmol/L 09/08/20 Unknown Salicylates < 0.3 mg/dL (2.8-20.0) L 09/07/20 14:00 Acetaminophen 5.0 ug/mL (10.0-30.0) L 09/07/20 14:00 Valproic Acid 58.9 ug/mL (50-100) 10/04/20 04:55 Plasma/Serum Alcohol < 0.01 % (0-0.07) 09/07/20 14:00 Coronavirus (PCR) Negative (Negative) 10/03/20 10:01 Hepatitis A IgM Ab Non-reactive (NonReactive) 09/07/20 14:00 Hep Bs Antigen Non-reactive (Negative) 09/07/20 14:00 Hep B Core IgM Ab Non-reactive (NonReactive) 09/07/20 14:00 Hepatitis C Antibody Non-reactive (NonReactive) 09/07/20 14:00 HIV 1&2 Antibody Rapid Non react (Non React) 09/07/20 14:34 HIV P24 Antigen Non react (Non React) 09/07/20 14:34 Blood Type O POSITIVE 09/09/20 10:00 Antibody Screen Negative 09/07/20 14:00 Microbiology: Microbiology 10/04/20 10:32 Peripheral/Venous Blood Culture - Preliminary NO GROWTH AFTER 24 HOURS 10/04/20 10:32 Peripheral/Venous Blood Culture - Preliminary NO GROWTH AFTER 24 HOURS Mae/IV: Voiding Method Condom Catheter IV Catheter Type [Right Triple Lumen Cath Femoral] IV Catheter Type [Left Peripheral IV Antecubital] IV Catheter Type [Left Hand] Peripheral IV IV Catheter Type [Right Peripheral IV Antecubital] Active Medications - Current Medications Current Medications: Generic Name Dose Route Start Last Admin Trade Name Freq PRN Reason Stop Dose Admin Acetaminophen 650 mg 10/02/20 09:00 10/04/20 05:10 Acetaminophen 325 Mg/10.15 Ml Oral Liqd Unit Dose PO 650 mg Q4HR PRN Administration Non Cardiac Pain or Temp>100.5 Amiodarone HCl 200 mg 10/05/20 11:00 10/05/20 12:55 Amiodarone 200 Mg Tab PO 200 mg BID TAYLOR Administration Lipase/Protease/Amylase 1 each 09/09/20 09:40 Lipase 10,500/Protease 25,000/Amylase 43,750 (Units) Dr Armenta FEEDTUBE PRN PRN For Clogged Feeding Tube Hydralazine HCl 50 mg 09/23/20 14:00 10/05/20 06:29 Hydralazine 25 Mg Tab PO 50 mg Q8HR TAYLOR Administration Sodium Chloride 100 mls @ 999 mls/hr 09/09/20 13:36 Nacl 0.9% IV JAYJAY PRN Hypotension Diltiazem HCl 100 mg in 100 mls @ 10 mls/hr 10/04/20 16:30 Cardizem/D5w 100mg/100ml IV DIRECT TAYLOR Cefepime HCl 2 gm in 100 mls @ 200 mls/hr 10/05/20 22:00 Cefepime/Ns 2 Gm/100 Ml IV Q24H TAYLOR Protocol Insulin Glargine 25 units 10/03/20 10:00 10/05/20 09:41 Insulin Glargine 100 Units/Ml SUB-Q 25 units DAILY TAYLOR Administration Insulin Human Lispro 0 unit 09/12/20 12:00 10/05/20 12:54 Insulin Lispro 100 Unit/Ml SUB-Q 4 unit Q6HR TAYLOR Administration Protocol Lansoprazole 30 mg 09/11/20 11:00 10/05/20 09:05 Lansoprazole 30 Mg Solutab FEEDTUBE 30 mg BID TAYLOR Administration Levetiracetam 1,500 mg 09/28/20 10:00 10/05/20 09:05 Levetiracetam 500 Mg/5 Ml Oral Liqd PO 1,500 mg BID TAYLOR Administration Multivitamins 5 ml 09/09/20 12:00 10/05/20 09:05 Multivitamins 5 Ml Oral Liquid PO 5 ml QDAY TAYLOR Administration Ondansetron HCl 4 mg 09/07/20 17:55 09/19/20 04:00 Ondansetron 4 Mg/2 Ml Inj IV 4 mg Q8H PRN Administration Nausea And Vomiting Senna/Docusate Sodium 2 tab 09/20/20 11:00 Sennosides/Docusate Sodium 8.6/50 Mg Tab PO BID PRN Laxative Effect Simple Syrup 15 ml 09/09/20 09:40 09/17/20 17:43 Simple Syrup 15 Ml FEEDTUBE 15 ml PRN PRN Administration Hypoglycemia Simple Syrup 30 ml 09/09/20 09:40 Simple Syrup 15 Ml FEEDTUBE PRN PRN Hypoglycemia Sodium Bicarbonate 325 mg 09/09/20 09:40 Sodium Bicarbonate 325 Mg Tab FEEDTUBE PRN PRN For Clogged Feeding Tube Sodium Chloride 10 ml 09/07/20 22:00 10/05/20 09:41 Sodium Chloride 0.9% 10 Ml Flush Syringe IV 10 ml BID TAYLOR Administration Sodium Chloride 10 ml 09/07/20 17:55 Sodium Chloride 0.9% 10 Ml Flush Syringe IV PRN PRN LINE FLUSH Valproic Acid 1,000 mg 09/28/20 10:00 10/05/20 09:05 Valproic Acid 250 Mg/5 Ml Oral Liqd FEEDTUBE 1,000 mg BID TYALOR Administration Nutrition/Malnutrition Assess - Dietary Evaluation Nutrition/Malnutrition Findings: Nutrition Notes Start: 09/08/20 12:01 Freq: Status: Active Protocol: Document 10/03/20 09:29 CW (Rec: 10/03/20 09:46 CW [id number]) Nutrition Notes Initial or Follow up Reassessment Current Diagnosis Acute Kidney Injury, Respiratory Failure Other Pertinent Diagnosis on HD, cardiac arrest, COVID ( +), metabolic encephalopathy, pneu Current Diet Nepro 1.8 at 45 mL/hr (goal rate) Labs/Tests BUN 50 Cr 5 BG 324 Pertinent Medications Lantus 35 units Humalog 8 units Height 6 ft Weight 145.18 kg Albert Body Weight (kg) 80.90 BMI 43.4 Weight change and time frame Weight stable at this time Weight Status Morbidly Obese Subjective/Other Information F/U for TF tolerance. Pt is tolerating TF at goal rate (45 ml/hr).Last BM reported on . RN stated large watery BM this morning. Will monitor for more loose stools to determine of TF change is warranted. Other than loose stool x1 pt is tolerating TF. Pt no longer hypernatremic, will decrease water flush down to 120 ml q4h to provide fluid needs. Protein not meeting 75% for kidney protection. Pt may be discharged soon. Order for bolus feed written in notes if needed;otherwise continue continous TF. Percent of energy/protein needs met: 100%/64% Burn Absent Trauma Absent GI Symptoms None Difficulty In Swallowing Food Allergy No Skin Integrity/Comment pressure ulcer to lips Current % PO Negligible Minimum of two criteria No Fluid Accumulation Mild (non-severe) #3 Nutrition Diagnosis Increased nutrient needs ( specify in comment below) Comments: protein Etiology wound healing As Evidenced by Signs and Symptoms pressure ulcer to lips #2 Nutrition Diagnosis Increased nutrient needs ( specify in comment below) As Evidenced by Signs and Symptoms PT no longer in critical care; Protein needs back down to >1 .2 kcal/kgAdjBW Diagnosis Progress(for reassessment Improved documentation) #1 Nutrition Diagnosis Inadequate oral intake Diagnosis Progress(for reassessment Continues documentation) Is patient on ventilator? No Is Patient Ambulatory and/or Out of Bed No REE-([place]-confined to bed) 2740.164 Kcal/Kg value to use for calculation 13 Approximate Energy Requirements Using 1887 kcal/Kg Calculation Used for Recommendations Kcal/kg Additional Notes PRO needs: >136g (>1.2g/kg AdjBW 113.04kg) Fluid needs are 1000-1500ml Nutrition Intervention Change Diet Order: TF Nutrition Support: Nepro at 45ml/hr 120ml q4h once resolved Kcal 1,944 Protein (gm) 87 Fluid (mL) 785 Goal #1 Meet kcal and protein needs as best as possible via TF Anticipated Discharge Needs: Continuous Nepro TF at 45ml/h Follow-Up By: 10/06/20 Additional Comments F/U for stable TF If needed, bolus feed order to be found in notes.
[2020-10-05] MEDS: CEFEPIME/NS 2 GM/100 ML 2 GM/100 ML BAG IV SCH (22:47)
[2020-10-06] MEDS: hydrALAZINE 25 MG TAB PO SCH ×3 (05:29→23:15)
[2020-10-06] MEDS: INSULIN LISPRO 100 UNIT/ML SUB-Q SCH ×3 (06:38→18:08)
--- NOTE | 2020-10-06 10:03 | Progress Note ---
Assessment and Plan Assessment and plan: #S/p cardiopulmonary arrest (out of hospital) Now poorly responsive with brain damage/anoxic brain injury #Toxic metabolic encephalopathy +/-anoxic injury Persists Now has trach and PEG #Acute hypoxic respiratory failure Continue oxygen supplementation #Nonoliguric acute kidney injury secondary to ATN. Patient status post emergent hemodialysis 09/08. Continue hemodialysis as scheduled #Seizure disorder Keppra 1500 twice daily Depakote 1000 mg twice daily #COVID-19 pneumonia Status post COVID-19 treatment #Fever Remains febrile Repeat blood cultures ordered Chest x-ray, urinalysis #Diabetes mellitus Glargine 25 units daily Lispro sliding scale #Hypertension Hydralazine 3 times daily #Atrial fibrillation with RVR Converted to sinus rhythm after initiation of amiodarone drip Continue p.o. amiodarone for now Holding therapeutic anticoagulation due to drop in hemoglobin #Acute on chronic anemia Continue to trend hemoglobin Repeat labs ordered today DVT prophylaxis-Lovenox Full code Disposition-family trying to consider hospice. Patient will need [facility] approval prior to this as per case filler. 09/15/2020. MRI brain for further evaluation. Continue AEDs of valproic acid and Keppra. Continue hemodialysis per nephrology recommendations. Overall prognosis remains guarded and poor. 09/16/2020. ID recommends continue to monitor patient off of antibiotics. Fever most likely of central etiology. Patient with questionable seizures versus myoclonus from anoxic brain injury. Patient unable to undergo MRI due to body habitus. Continue AEDs per neurology recommendations. Inflammatory markers elevated. Patient was recently hospitalized for COVID-19 pneumonia at the [facility] to being hospitalized [place]. Patient not a candidate for remdesivir due to hepatic and renal failure. Viral hepatitis panel negative. Overall prognosis extremely poor. 09/17/2020. Fevers have resolved over the past 48 hours. Continue to monitor off antibiotics per ID recommendations. Patient with questionable seizures versus myoclonus from anoxic brain injury. Patient unable to undergo MRI due to body habitus. EEG is nonspecific but given CT of head findings consistent with anoxic encephalopathy, brain injury. Continue AEDs per neurology recommendations. Inflammatory markers elevated. Patient was recently hospitalized for COVID-19 pneumonia at the [facility] to being hospitalized [facility]. Patient not a candidate for remdesivir due to hepatic and renal failure. Viral hepatitis panel negative. Patient is s/p emergent HD on Friday (hyperK) and Friday - 09/08. Patient also S/p HD 09/15. Continue hemodialysis per nephrology recommendations. Patient currently on AC/PRVC mode ventilation with rate of 30, tidal volume 475, FiO2 30% and PEEP of 6. As stated in neuro note, overall prognosis is very poor. 09/18/2020. Fevers have resolved over the past 72 hours. Continue to monitor off antibiotics per ID recommendations. Leukocytosis persistent for the past 4 days. Patient with questionable seizures/myoclonus from anoxic brain injury. Patient unable to undergo MRI due to body habitus. EEG is nonspecific but given CT of head findings consistent with anoxic encephalopathy, brain injury. Continue AEDs per neurology recommendations. Inflammatory markers elevated. Patient was recently hospitalized for COVID-19 pneumonia at the [facility] being [facility]. Patient not a candidate for remdesivir due to hepatic and renal failure. Viral hepatitis panel negative. Patient currently on AC/PRVC mode ventilation with rate of 30, tidal volume 475, FiO2 30% and PEEP of 6. Overall prognosis remains guarded/poor. 09/19/2020 Fevers have resolved over the past 4 days. Continue to monitor off antibiotics per ID recommendations. Leukocytosis persistent for the past 4 days. Patient with questionable seizures/myoclonus from anoxic brain injury. Patient unable to undergo MRI due to body habitus. EEG is nonspecific but given CT of head findings consistent with anoxic encephalopathy, brain injury. Continue AEDs per neurology recommendations. Inflammatory markers elevated. Patient was recently hospitalized for COVID-19 pneumonia at the [facility] being [facility]. Patient not a candidate for remdesivir due to hepatic and renal failure. Viral hepatitis panel negative. Patient currently on AC/PRVC mode ventilation with rate of 30, tidal volume 475, FiO2 30% and PEEP of 6. Overall prognosis remains guarded/poor. 09/20/2020 -Surgery consulted for PEG and trach, will continue to follow. 09/21/2020; patient will have PEG and trach by Dr. hayes today. Prognosis is poor. Continue with current management. Informatics Specialist is following for vent management. 09/22/2020; patient had PEG and trach yesterday. 09/23/2020; continue PEG Tube Feeding. 09/24/2020; continue PEG tube feeding, patient is on Keppra, lorazepam and phenytoin per neurology recommendation. Patient is on hemodialysis and nephrology is following. Management of mechanical ventilation for CCM. 09/25/2020. Continue PEG tube feeding, patient is on Keppra, lorazepam and phe nytoin per neurology recommendation. Patient is on hemodialysis and nephrology is following. Management of mechanical ventilation for CCM. Continue PSV/CPAP 12/6. Continue tracheostomy care, secretion control and airway management. 09/26/2020. Patient has tolerated PSV for approximately 48 hours. I discussed with pulmonary possibility of T-piece today. Continue tracheostomy care, secretion control and airway management. If patient tolerates T-piece trials, patient will be transferred to the floor. Continue AEDs of Keppra and phenytoin as well as Ativan as needed per neurology recommendations. Continue hemodialysis per nephrology. Continue TF with aspiration precautions. 09/27/2020. Patient continues to tolerate PSV 07/16 at 30% FiO2. T-piece trials per pulmonary. Continue tracheostomy care, secretion control and airway management. Continue AEDs of Keppra and phenytoin as well as Ativan as needed per neurology recommendations. Continue hemodialysis per nephrology. Continue TF with aspiration precautions. 09/28/2020. Patient for T-piece trials per pulmonary. Continue hemodialysis per nephrology. Continue tracheostomy care, secretion control and airway management. Continue AEDs of Keppra and phenytoin as well as Ativan as needed per neurology recommendations. Continue TF with aspiration precautions. 09/29/2020, continue T-piece trials per pulmonary. Continue hemodialysis per nephrology. Continue strict I/O's and labs daily. Monitor for renal recovery. 09/30/2020. Continue T-piece trials per pulmonary recommendations. Continue tracheostomy care, secretion control and airway management. Continue hemodialysis per nephrology. Tight glycemic control. Continue TF with aspiration precautions. 10/01/2020. Patient with T-piece trials and tolerating. Wean to trach collar per pulmonary. Continue tracheostomy care, secretion control and airway management. Continue hemodialysis per nephrology. Tight glycemic control. Continue TF with aspiration precautions. Case management consultation for placement 10/02/20. Continue T-piece trials per pulmonary recommendations. Continue tracheostomy care, secretion control and airway management. Continue hemo dialysis per nephrology. Tight glycemic control. Continue TF with aspiration precautions. 10/03/2020. Continue T-piece trials per pulmonology. Continue tracheostomy care, secretion control and airway management. Continue modalities per nephrology. Discharge planning underway. Needs placement to SNF versus hospice. 10/04/2020. Patient remained febrile with temperature 101 F. Ordered blood culture, chest x-ray, urinalysis. Plan to start antibiotics after blood cultures been obtained. Patient remains hemodynamically stable. Plan to discharge to SNF versus inpatient hospice on the way. 10/05/2020. Started on antibiotics yesterday. Awaiting blood culture. He developed atrial fibrillation with RVR and was placed on amiodaron see awaiting placement. E drip with subsequent conversion to SR. Now on amiodarone PO. Discussed with patients - she would like him to go inpatient hospice or a custodial care facility. As per CM, [facility] not approving LTC placement at this time. As is still undecided about hospice, inpatient hospice is not accepting h im at this time. has placed a referral to a SNF with inpatient dialysis. Awaiting response from the SNF. 10/06/2020. Hb drop noted. Not on therapeutic anticoagulation [atrial fibrillation] due to duration of atrial fibrillation [lasted less than 2 hours] and also drop in hemoglobin. Continue to monitor hemoglobin. Repeat labs ordered today. Vitals stable. Discussed with patient's yesterday History Interval history: 65 y/o male with out of hospital cardiac arrest, acute hypoxic respiratory failure and COVID-19 infection. Hospitalist Physical - Physical exam Narrative exam: VITAL SIGNS: Reviewed. GENERAL: Not responsive HEAD: No signs of head trauma. EYES: Closed MOUTH: Oropharynx is normal. NECK: No adenopathy, no JVD. CHEST: Diminished breath sounds with crackles bilaterally CARDIAC: normal S1 and S2, without murmurs, gallops, or rubs. ABDOMEN: Soft, non tender and non distended. No rebound or guarding, and no masses palpated. Bowel Sounds normal. MUSCULOSKELETAL: Bilateral leg edema NEUROLOGIC EXAM: Not responsive SKIN: No obvious lesions - Constitutional Vitals: Temp Pulse Resp BP Pulse Ox 98.9 F 82 18 152/80 90 10/06/20 09:05 10/06/20 09:05 10/06/20 09:05 10/06/20 09:05 10/06/20 09:05 General appearance: Present: other (On mechanical ventilation) HEART Score - HEART Score Troponin: Troponin T 0.076 ng/mL (0.00-0.029) H 09/07/20 14:00 Results - Labs CBC & Chem 7: 10/04/20 10:32 10/05/20 00:19 Labs: Laboratory Last Values WBC 8.8 K/mm3 (4.5-11.0) 10/04/20 10:32 RBC 2.65 M/mm3 (3.65-5.03) L 10/04/20 10:32 Hgb 7.8 gm/dl (11.8-15.2) L 10/04/20 10:32 Hct 23.0 % (35.5-45.6) L 10/04/20 10:32 MCV 87 fl (84-94) 10/04/20 10:32 MCH 29 pg (28-32) 10/04/20 10:32 MCHC 34 % (32-34) 10/04/20 10:32 RDW 18.2 % (13.2-15.2) H 10/04/20 10:32 Plt Count 171 K/mm3 (140-440) 10/04/20 10:32 Lymph % (Auto) 27.0 % (13.4-35.0) 10/01/20 04:33 [place] % (Auto) Jacquard Loom Heddles Tier 10/04/20 10:32 Eos % (Auto) 1.4 % (0.0-4.3) 10/01/20 04:33 Baso % (Auto) 0.3 % (0.0-1.8) 10/01/20 04:33 Lymph # (Auto) 1.9 K/mm3 (1.2-5.4) 10/01/20 04:33 [place] # (Auto) 1.2 K/mm3 (0.0-0.8) H 10/01/20 04:33 Eos # (Auto) 0.1 K/mm3 (0.0-0.4) 10/01/20 04:33 Baso # (Auto) 0.0 K/mm3 (0.0-0.1) 10/01/20 04:33 Add Manual Diff Complete 10/04/20 10:32 Total Counted 100 10/04/20 10:32 Seg Neutrophils % 54.7 % (40.0-70.0) 10/01/20 04:33 Seg Neuts % (Manual) 53.0 % (40.0-70.0) 10/04/20 10:32 Band Neutrophils % 8.0 % 09/30/20 06:57 Lymphocytes % (Manual) 31.0 % (13.4-35.0) 10/04/20 10:32 Monocytes % (Manual) 14.0 % (0.0-7.3) H 10/04/20 10:32 Eosinophils % (Manual) 2.0 % (0.0-4.3) 10/04/20 10:32 Basophils % (Manual) 1.0 % (0.0-1.8) 09/30/20 06:57 Metamyelocytes % 2.0 % 09/08/20 Unknown Promyelocytes % 0 % 10/04/20 10:32 Nucleated RBC % Not Reportable 10/04/20 10:32 Seg Neutrophils # 3.9 K/mm3 (1.8-7.7) 10/01/20 04:33 Seg Neutrophils # Man 4.7 K/mm3 (1.8-7.7) 10/04/20 10:32 Band Neutrophils # 0.0 K/mm3 10/04/20 10:32 Lymphocytes # (Manual) 2.7 K/mm3 (1.2-5.4) 10/04/20 10:32 Abs React Lymphs (Man) 0.0 K/mm3 10/04/20 10:32 Monocytes # (Manual) 1.2 K/mm3 (0.0-0.8) H 10/04/20 10:32 Eosinophils # (Manual) 0.2 K/mm3 (0.0-0.4) 10/04/20 10:32 Basophils # (Manual) 0.0 K/mm3 (0.0-0.1) 10/04/20 10:32 Metamyelocytes # 0.0 K/mm3 10/04/20 10:32 Myelocytes # 0.0 K/mm3 10/04/20 10:32 Promyelocytes # 0.0 K/mm3 10/04/20 10:32 Blast Cells # 0.0 K/mm3 10/04/20 10:32 WBC Morphology Not Reportable 10/04/20 10:32 Hypersegmented Neuts Not Reportable 10/04/20 10:32 Hyposegmented Neuts Not Reportable 10/04/20 10:32 Hypogranular Neuts Not Reportable 10/04/20 10:32 Smudge Cells Not Reportable 10/04/20 10:32 Toxic Granulation Not Reportable 10/04/20 10:32 Toxic Vacuolation Not Reportable 10/04/20 10:32 Dohle Bodies Not Reportable 10/04/20 10:32 Pelger-Huet Anomaly Not Reportable 10/04/20 10:32 Justus Rods Not Reportable 10/04/20 10:32 Platelet Estimate Consistent w auto 10/04/20 10:32 Clumped Platelets Not Reportable 10/04/20 10:32 Plt Clumps, EDTA Not Reportable 10/04/20 10:32 Large Platelets Not Reportable 10/04/20 10:32 Giant Platelets Not Reportable 10/04/20 10:32 Platelet Satelliting Not Reportable 10/04/20 10:32 Plt Morphology Comment Not Reportable 10/04/20 10:32 RBC Morphology Not Reportable 10/04/20 10:32 Dimorphic RBCs Not Reportable 10/04/20 10:32 Polychromasia Not Reportable 10/04/20 10:32 Hypochromasia Not Reportable 10/04/20 10:32 Poikilocytosis Not Reportable 10/04/20 10:32 Anisocytosis 1+ 10/04/20 10:32 Microcytosis Not Reportable 10/04/20 10:32 Macrocytosis Not Reportable 10/04/20 10:32 Spherocytes Not Reportable 10/04/20 10:32 Pappenheimer Bodies Not Reportable 10/04/20 10:32 Sickle Cells Not Reportable 10/04/20 10:32 Target Cells Not Reportable 10/04/20 10:32 Tear Drop Cells Not Reportable 10/04/20 10:32 Ovalocytes Not Reportable 10/04/20 10:32 Helmet Cells Not Reportable 10/04/20 10:32 [place] Bodies Not Reportable 10/04/20 10:32 [place] Rings Not Reportable 10/04/20 10:32 [place] Cells Not Reportable 10/04/20 10:32 Bite Cells Not Reportable 10/04/20 10:32 Crenated Cell Not Reportable 10/04/20 10:32 Elliptocytes Not Reportable 10/04/20 10:32 Acanthocytes (Spur) Not Reportable 10/04/20 10:32 Rouleaux Not Reportable 10/04/20 10:32 Hemoglobin C Crystals Not Reportable 10/04/20 10:32 Schistocytes Not Reportable 10/04/20 10:32 Malaria parasites Not Reportable 10/04/20 10:32 Otmmie Bodies Not Reportable 10/04/20 10:32 Hem Pathologist Commnt No 10/04/20 10:32 PT 16.1 Sec. (12.2-14.9) H 09/12/20 04:00 INR 1.31 (0.87-1.13) H 09/12/20 04:00 APTT 32.4 Sec. (24.2-36.6) 09/09/20 10:00 D-Dimer 8315.85 ng/mlDDU (0-234) H 09/07/20 14:00 ABG pH 7.468 (7.320-7.450) H 10/02/20 10:16 POC ABG pCO2 37.1 mmHg (32.0-48.0) 10/02/20 10:16 ABG pCO2 33.4 mm Hg 09/11/20 05:40 POC ABG pO2 72.9 mmHg (83-108) L 10/02/20 10:16 ABG pO2 112.1 mm Hg (80.0-90.0) H 09/11/20 05:40 POC ABG HCO3 26.3 10/02/20 10:16 ABG HCO3 28.1 mmol/L (20.0-26.0) H 09/11/20 05:40 ABG O2 Saturation 98.4 % (95.0-99.0) 09/11/20 05:40 ABG O2 Content 11.6 (0.0-44) 09/11/20 05:40 POC ABG Base Excess 2.6 10/02/20 10:16 ABG Base Excess 5.4 mmol/L (-2.0-3.0) H 09/11/20 05:40 ABG Hemoglobin 10.1 (12.0-17.5) L 10/02/20 10:16 ABG Oxyhemoglobin 93.1 (94-98) L 10/02/20 10:16 ABG Carboxyhemoglobin 1.2 % (0.0-5.0) 09/11/20 05:40 ABG Methemoglobin 0.3 (0.0-1.5) 10/02/20 10:16 ABG Sodium 138.5 mmol/L (136.0-145.0) 10/02/20 10:16 ABG Potassium 3.9 mmol/L (3.40-4.50) 10/02/20 10:16 ABG Chloride 108.0 mmol/L (98-107) H 10/02/20 10:16 ABG Glucose 289 mg/dL (65-95) H 10/02/20 10:16 Oxyhemoglobin 96.8 % (95.0-99.0) 09/11/20 05:40 Carboxyhemoglobin 0.8 (0.5-1.5) 10/02/20 10:16 FiO2 35 10/02/20 10:16 Sodium 132 mmol/L (137-145) L 10/05/20 00:19 Potassium 3.8 mmol/L (3.6-5.0) 10/05/20 00:19 Chloride 96.7 mmol/L (98-107) L 10/05/20 00:19 Carbon Dioxide 27 mmol/L (22-30) 10/05/20 00:19 Anion Gap 12 mmol/L 10/05/20 00:19 BUN 44 mg/dL (9-20) H 10/05/20 00:19 Creatinine 3.9 mg/dL (0.8-1.3) H 10/05/20 00:19 Estimated GFR 19 ml/min 10/05/20 00:19 BUN/Creatinine Ratio 11 % 10/05/20 00:19 Glucose 252 mg/dL (75-100) H 10/05/20 00:19 POC Glucose 280 mg/dL (70-105) H 10/06/20 07:44 Lactic Acid 2.90 mmol/L (0.7-2.0) H* 09/17/20 13:52 Calcium 9.2 mg/dL (8.4-10.2) 10/05/20 00:19 Phosphorus 8.00 mg/dL (2.5-4.5) H 09/08/20 12:02 Magnesium 1.80 mg/dL (1.7-2.3) 09/08/20 12:02 Ferritin > 2000.0 ng/mL (30.0-300.0) H 09/07/20 14:00 Total Bilirubin 0.50 mg/dL (0.1-1.2) 09/25/20 05:18 Direct Bilirubin 0.5 mg/dL (0-0.2) H 09/08/20 05:00 Indirect Bilirubin 0.5 mg/dL 09/08/20 05:00 AST 55 units/L (5-40) H 09/25/20 05:18 ALT 74 units/L (7-56) H 09/25/20 05:18 Alkaline Phosphatase 81 units/L (35-129) 09/25/20 05:18 Ammonia 50.0 umol/L (25-60) 09/07/20 14:00 Lactate Dehydrogenase 882 units/L (91-180) H 09/07/20 14:00 Total Creatine Kinase 477 units/L (55-170) H 09/07/20 14:00 Troponin T 0.076 ng/mL (0.00-0.029) H 09/07/20 14:00 C-Reactive Protein 1.10 mg/dL (0.00-1.30) 09/07/20 14:00 Total Protein 7.0 g/dL (6.3-8.2) 09/25/20 05:18 Albumin 2.6 g/dL (3.9-5) L 09/25/20 05:18 Albumin/Globulin Ratio 0.6 % 09/25/20 05:18 Triglycerides 220 mg/dL (2-149) H 09/12/20 Unknown Procalcitonin 1.16 ng/mL (<0.15) 10/04/20 10:32 TSH 2.290 mlU/mL (0.270-4.200) 09/07/20 14:00 Arterial Blood Glucose 289 mg/dL (65-95) H 10/02/20 10:16 Arterial Blood Ionized Calcium 5.2 mg/dL (4.6-5.3) 10/02/20 10:16 Urine Color Yellow (Yellow) 10/05/20 09:15 Urine Turbidity Slightly-cloudy (Clear) 10/05/20 09:15 Urine pH 5.0 (5.0-7.0) 10/05/20 09:15 Ur Specific [place] 1.015 (1.003-1.030) 10/05/20 09:15 Urine Protein 30 mg/dl mg/dL (Negative) 10/05/20 09:15 Urine Glucose (UA) Neg mg/dL (Negative) 10/05/20 09:15 Urine Ketones Neg mg/dL (Negative) 10/05/20 09:15 Urine Blood Sm (Negative) 10/05/20 09:15 Urine Nitrite Neg (Negative) 10/05/20 09:15 Urine Bilirubin Neg (Negative) 10/05/20 09:15 Urine Urobilinogen < 2.0 mg/dL (<2.0) 10/05/20 09:15 Ur Leukocyte Esterase Neg (Negative) 10/05/20 09:15 Urine WBC (Auto) 13.0 /HPF (0.0-6.0) H 10/05/20 09:15 Urine RBC (Auto) 19.0 /HPF (0.0-6.0) 10/05/20 09:15 U Epithel Cells (Auto) 6.0 /HPF (0-13.0) 10/05/20 09:15 Urine Bacteria (Auto) 2+ /HPF (Negative) 10/05/20 09:15 Hyaline Casts 1 /LPF 10/05/20 09:15 Urine Mucus Few /HPF 10/05/20 09:15 Urine Yeast (Budding) 3+ /HPF 10/05/20 09:15 Urine Sperm 3+ /HPF (CNC MANAGER) 09/07/20 13:08 Urine Creatinine 182.4 mg/dL (0.1-20.0) H 09/08/20 Unknown Urine Sodium 40 mmol/L 09/08/20 Unknown Salicylates < 0.3 mg/dL (2.8-20.0) L 09/07/20 14:00 Acetaminophen 5.0 ug/mL (10.0-30.0) L 09/07/20 14:00 Valproic Acid 58.9 ug/mL (50-100) 10/04/20 04:55 Plasma/Serum Alcohol < 0.01 % (0-0.07) 09/07/20 14:00 Coronavirus (PCR) Negative (Negative) 10/03/20 10:01 Hepatitis A IgM Ab Non-reactive (NonReactive) 09/07/20 14:00 Hep Bs Antigen Non-reactive (Negative) 09/07/20 14:00 Hep B Core IgM Ab Non-reactive (NonReactive) 09/07/20 14:00 Hepatitis C Antibody Non-reactive (NonReactive) 09/07/20 14:00 HIV 1&2 Antibody Rapid Non react (Non React) 09/07/20 14:34 HIV P24 Antigen Non react (Non React) 09/07/20 14:34 Blood Type O POSITIVE 09/09/20 10:00 Antibody Screen Negative 09/07/20 14:00 Microbiology: Microbiology 10/04/20 10:32 Peripheral/Venous Blood Culture - Preliminary NO GROWTH AFTER 24 HOURS 10/04/20 10:32 Peripheral/Venous Blood Culture - Preliminary NO GROWTH AFTER 24 HOURS Mae/IV: Voiding Method Condom Catheter IV Catheter Type [Right Triple Lumen Cath Femoral] IV Catheter Type [Left Peripheral IV Antecubital] IV Catheter Type [Left Hand] Peripheral IV IV Catheter Type [Right Peripheral IV Antecubital] Active Medications - Current Medications Current Medications: Generic Name Dose Route Start Last Admin Trade Name Freq PRN Reason Stop Dose Admin Acetaminophen 650 mg 10/02/20 09:00 10/04/20 05:10 Acetaminophen 325 Mg/10.15 Ml Oral Liqd Unit Dose PO 650 mg Q4HR PRN Administration Non Cardiac Pain or Temp>100.5 Amiodarone HCl 200 mg 10/05/20 11:00 10/05/20 22:47 Amiodarone 200 Mg Tab PO 200 mg BID TAYLOR Administration Lipase/Protease/Amylase 1 each 09/09/20 09:40 Lipase 10,500/Protease 25,000/Amylase 43,750 (Units) Dr Armenta FEEDTUBE PRN PRN For Clogged Feeding Tube Hydralazine HCl 50 mg 09/23/20 14:00 10/06/20 05:29 Hydralazine 25 Mg Tab PO 50 mg Q8HR TAYLOR Administration Sodium Chloride 100 mls @ 999 mls/hr 09/09/20 13:36 Nacl 0.9% IV JAYJAY PRN Hypotension Diltiazem HCl 100 mg in 100 mls @ 10 mls/hr 10/04/20 16:30 Cardizem/D5w 100mg/100ml IV DIRECT TAYLOR Cefepime HCl 2 gm in 100 mls @ 200 mls/hr 10/05/20 22:00 10/05/20 22:47 Cefepime/Ns 2 Gm/100 Ml IV 200 mls/hr Q24H TAYLOR Administration Protocol Insulin Glargine 25 units 10/03/20 10:00 10/05/20 09:41 Insulin Glargine 100 Units/Ml SUB-Q 25 units DAILY TAYLOR Administration Insulin Human Lispro 0 unit 09/12/20 12:00 10/06/20 06:38 Insulin Lispro 100 Unit/Ml SUB-Q 6 unit Q6HR TAYLOR Administration Protocol Lansoprazole 30 mg 09/11/20 11:00 10/05/20 22:47 Lansoprazole 30 Mg Solutab FEEDTUBE 30 mg BID TAYLOR Administration Levetiracetam 1,500 mg 09/28/20 10:00 10/05/20 22:47 Levetiracetam 500 Mg/5 Ml Oral Liqd PO 1,500 mg BID TAYLOR Administration Multivitamins 5 ml 09/09/20 12:00 10/05/20 09:05 Multivitamins 5 Ml Oral Liquid PO 5 ml QDAY TAYLOR Administration Ondansetron HCl 4 mg 09/07/20 17:55 09/19/20 04:00 Ondansetron 4 Mg/2 Ml Inj IV 4 mg Q8H PRN Administration Nausea And Vomiting Senna/Docusate Sodium 2 tab 09/20/20 11:00 Sennosides/Docusate Sodium 8.6/50 Mg Tab PO BID PRN Laxative Effect Simple Syrup 15 ml 09/09/20 09:40 09/17/20 17:43 Simple Syrup 15 Ml FEEDTUBE 15 ml PRN PRN Administration Hypoglycemia Simple Syrup 30 ml 09/09/20 09:40 Simple Syrup 15 Ml FEEDTUBE PRN PRN Hypoglycemia Sodium Bicarbonate 325 mg 09/09/20 09:40 Sodium Bicarbonate 325 Mg Tab FEEDTUBE PRN PRN For Clogged Feeding Tube Sodium Chloride 10 ml 09/07/20 22:00 10/05/20 22:48 Sodium Chloride 0.9% 10 Ml Flush Syringe IV 10 ml BID TAYLOR Administration Sodium Chloride 10 ml 09/07/20 17:55 Sodium Chloride 0.9% 10 Ml Flush Syringe IV PRN PRN LINE FLUSH Valproic Acid 1,000 mg 09/28/20 10:00 10/05/20 22:46 Valproic Acid 250 Mg/5 Ml Oral Liqd FEEDTUBE 1,000 mg BID TAYLOR Administration Nutrition/Malnutrition Assess - Dietary Evaluation Nutrition/Malnutrition Findings: Nutrition Notes Start: 09/08/20 12:01 Freq: Status: Active Protocol: Document 10/03/20 09:29 CW (Rec: 10/03/20 09:46 CW [id number]) Nutrition Notes Initial or Follow up Reassessment Current Diagnosis Acute Kidney Injury, Respiratory Failure Other Pertinent Diagnosis on HD, cardiac arrest, COVID ( +), metabolic encephalopathy, pneu Current Diet Nepro 1.8 at 45 mL/hr (goal rate) Labs/Tests BUN 50 Cr 5 BG 324 Pertinent Medications Lantus 35 units Humalog 8 units Height 6 ft Weight 145.18 kg [place] Body Weight (kg) 80.90 BMI 43.4 Weight change and time frame Weight stable at this time Weight Status Morbidly Obese Subjective/Other Information F/U for TF tolerance. Pt is tolerating TF at goal rate (45 ml/hr).Last BM reported on . RN stated large watery BM this morning. Will monitor for more loose stools to determine of TF change is warranted. Other than loose stool x1 pt is tolerating TF. Pt no longer hypernatremic, will decrease water flush down to 120 ml q4h to provide fluid needs. Protein not meeting 75% for kidney protection. Pt may be discharged soon. Order for bolus feed written in notes if needed;otherwise continue continous TF. Percent of energy/protein needs met: 100%/64% Burn Absent Trauma Absent GI Symptoms None Difficulty In Swallowing Food Allergy No Skin Integrity/Comment pressure ulcer to lips Current % PO Negligible Minimum of two criteria No Fluid Accumulation Mild (non-severe) #3 Nutrition Diagnosis Increased nutrient needs ( specify in comment below) Comments: protein Etiology wound healing As Evidenced by Signs and Symptoms pressure ulcer to lips #2 Nutrition Diagnosis Increased nutrient needs ( specify in comment below) As Evidenced by Signs and Symptoms PT no longer in critical care; Protein needs back down to >1 .2 kcal/kgAdjBW Diagnosis Progress(for reassessment Improved documentation) #1 Nutrition Diagnosis Inadequate oral intake Diagnosis Progress(for reassessment Continues documentation) Is patient on ventilator? No Is Patient Ambulatory and/or Out of Bed No REE-([place]-confined to bed) 2740.164 Kcal/Kg value to use for calculation 13 Approximate Energy Requirements Using 1887 kcal/Kg Calculation Used for Recommendations Kcal/kg Additional Notes PRO needs: >136g (>1.2g/kg AdjBW 113.04kg) Fluid needs are 1000-1500ml Nutrition Intervention Change Diet Order: TF Nutrition Support: Nepro at 45ml/hr 120ml q4h once resolved Kcal 1,944 Protein (gm) 87 Fluid (mL) 785 Goal #1 Meet kcal and protein needs as best as possible via TF Anticipated Discharge Needs: Continuous Nepro TF at 45ml/h Follow-Up By: 10/06/20 Additional Comments F/U for stable TF If needed, bolus feed order to be found in notes.
[2020-10-06] MEDS: levETIRAcetam 500 MG/5 ML ORAL LIQD PO SCH ×2 (10:42→23:23)
[2020-10-06] MEDS: VALPROIC ACID 250 MG/5 ML ORAL LIQD FEEDTUBE SCH ×2 (10:42→23:15)
[2020-10-06] MEDS: AMIODARONE 200 MG TAB PO SCH ×2 (10:43→23:16)
[2020-10-06] MEDS: INSULIN GLARGINE 100 UNITS/ML SUB-Q SCH (10:43)
[2020-10-06] MEDS: LANSOPRAZOLE 30 MG SOLUTAB FEEDTUBE SCH ×2 (10:44→23:23)
[2020-10-06 10:48] LABS: Hematocrit 24.7 % (35.5-45.6); Hemoglobin 8.4 gm/dl (11.8-15.2); Mean Corpuscular HGB Conc 34 % (32-34); Mean Corpuscular Volume 85 fl (84-94); Platelet Count 182 K/mm3 (140-440); Red Blood Count 2.92 M/mm3 (3.65-5.03); Red Cell Distribution Width 18.1 % (13.2-15.2)
[2020-10-06 10:50] LABS: Albumin 2.3 g/dL (3.9-5); Calcium 9.6 mg/dL (8.4-10.2)
[2020-10-06 12:44] LABS: Total Cells Counted 100
[2020-10-06 12:45] LABS: Anisocytosis 1+; Platelet Estimate Consistent w Auto
[2020-10-06] MEDS: MULTIVITAMINS 5 ML ORAL LIQUID PO SCH (13:40)
--- NOTE | 2020-10-06 14:36 | Progress Note ---
Assessment and Plan Impression: * Nonoliguric RYAN secondary to ATN * Severe hyperkalemia - resolved * COVID 19 PNA * s/p OOH cardiac arrest * Acute hypoxic respiratory failure * Acute encephalopathy * Seizure activity * Anemia * Hypernatremia * Fever --Vascath removed (Oct 04) --Blood cx: NGTD (Oct 04) Plan: * No acute need for HD today - lytes stable and UOP good (appx 2.4L yesterday) * Rate control per cardiology * Abx per primary team * Strict I/O * Keep MAP > 65 * Dose medications for renal function * Avoid potential nephrotoxins * Prognosis is poor. Agree with inpatient hospice Subjective Date of service: 10/06/20 Principal diagnosis: Abnormal LFTs, s/p cardiac arrest, acute kidney injury with ATN Interval history: Patient remains unresponsive. Transferred out of ICU. Now on floor. Objective - Vital Signs Vital signs: Vital Signs - 12hr 10/06/20 10/06/20 10/06/20 03:57 04:14 05:29 Temperature 98.7 F Pulse Rate 84 84 Pulse Rate [ From Monitor] Respiratory 18 Rate Blood Pressure 153/78 153/78 Blood Pressure [Right] O2 Sat by Pulse 96 Oximetry O2 Sat by Pulse 96 Oximetry [ Assessment] 10/06/20 10/06/20 10/06/20 08:00 09:05 10:00 Temperature 98.9 F Pulse Rate 82 82 Pulse Rate [ From Monitor] Respiratory 18 Rate Blood Pressure Blood Pressure 152/80 [Right] O2 Sat by Pulse 97 90 Oximetry O2 Sat by Pulse 97 Oximetry [ Assessment] 10/06/20 12:00 Temperature Pulse Rate Pulse Rate [ 80 From Monitor] Respiratory 26 H Rate Blood Pressure Blood Pressure [Right] O2 Sat by Pulse Oximetry O2 Sat by Pulse Oximetry [ Assessment] - General Appearance General appearance: well-developed EENT: ATNC Neck: other (trach) Cardiology: regular, S1S2 Gastrointestinal: normal, no tenderness, no distended, obese Integumentary: no rash, cool/clammy Musculoskeletal: other (trace edema) - Lab 10/06/20 10:12 10/06/20 10:12 Most recent lab results ABG pH 7.468 (7.320-7.450) H 10/02/20 10:16 ABG pCO2 33.4 mm Hg 09/11/20 05:40 ABG pO2 112.1 mm Hg (80.0-90.0) H 09/11/20 05:40 ABG HCO3 28.1 mmol/L (20.0-26.0) H 09/11/20 05:40 ABG O2 Saturation 98.4 % (95.0-99.0) 09/11/20 05:40 Calcium 9.6 mg/dL (8.4-10.2) 10/06/20 10:12 Phosphorus 8.00 mg/dL (2.5-4.5) H 09/08/20 12:02 Magnesium 1.80 mg/dL (1.7-2.3) 09/08/20 12:02 Urine Creatinine 182.4 mg/dL (0.1-20.0) H 09/08/20 Unknown Urine Sodium 40 mmol/L 09/08/20 Unknown Medications & Allergies - Medications Allergies/Adverse Reactions: Allergies No Known Allergies Allergy (Verified 09/21/20 21:00) Verified with , no known drug allergies. Home Medications: Home Medications Medication Instructions Recorded Confirmed Last Taken Type Albuterol Sulfate 60 mcg IH PRN 09/11/20 09/11/20 Unknown History Cholecalciferol (Vitamin D3) 25 tab PO DAILY 09/11/20 09/11/20 Unknown History Cozaar 25 tab PO DAILY 09/11/20 09/11/20 Unknown History HumaLOG 14 unit SQ AC 09/11/20 09/11/20 Unknown History Hydralazine HCl 50 tab PO TID 09/11/20 09/11/20 Unknown History Isosorbide Dinitrate 30 mg PO DAILY 09/11/20 09/11/20 Unknown History Lantus VIAL 54 units SQ HS 09/11/20 09/11/20 Unknown History Lasix 20 tab PO DAILY 09/11/20 09/11/20 Unknown History Nifedipine 30 tab PO DAILY 09/11/20 09/11/20 Unknown History Active Medications: Generic Name Dose Route Start Last Admin Trade Name Freq PRN Reason Stop Dose Admin Acetaminophen 650 mg 10/02/20 09:00 10/04/20 05:10 Acetaminophen 325 Mg/10.15 Ml Oral Liqd Unit Dose PO 650 mg Q4HR PRN Administration Non Cardiac Pain or Temp>100.5 Amiodarone HCl 200 mg 10/05/20 11:00 10/06/20 10:43 Amiodarone 200 Mg Tab PO 200 mg BID TAYLOR Administration Lipase/Protease/Amylase 1 each 09/09/20 09:40 Lipase 10,500/Protease 25,000/Amylase 43,750 (Units) Dr Armenta FEEDTUBE PRN PRN For Clogged Feeding Tube Hydralazine HCl 50 mg 09/23/20 14:00 10/06/20 13:16 Hydralazine 25 Mg Tab PO 50 mg Q8HR TAYLOR Administration Sodium Chloride 100 mls @ 999 mls/hr 09/09/20 13:36 Nacl 0.9% IV JAYJAY PRN Hypotension Cefepime HCl 2 gm in 100 mls @ 200 mls/hr 10/05/20 22:00 10/05/20 22:47 Cefepime/Ns 2 Gm/100 Ml IV 200 mls/hr Q24H TAYLOR Administration Protocol Insulin Glargine 25 units 10/03/20 10:00 10/06/20 10:43 Insulin Glargine 100 Units/Ml SUB-Q 25 units DAILY TAYLOR Administration Insulin Human Lispro 0 unit 09/12/20 12:00 10/06/20 13:13 Insulin Lispro 100 Unit/Ml SUB-Q 6 unit Q6HR TAYLOR Administration Protocol Lansoprazole 30 mg 09/11/20 11:00 10/06/20 10:44 Lansoprazole 30 Mg Solutab FEEDTUBE 30 mg BID TAYLOR Administration Levetiracetam 1,500 mg 09/28/20 10:00 10/06/20 10:42 Levetiracetam 500 Mg/5 Ml Oral Liqd PO 1,500 mg BID TAYLOR Administration Multivitamins 5 ml 09/09/20 12:00 10/06/20 13:40 Multivitamins 5 Ml Oral Liquid PO Not Given QDAY TAYLOR Ondansetron HCl 4 mg 09/07/20 17:55 09/19/20 04:00 Ondansetron 4 Mg/2 Ml Inj IV 4 mg Q8H PRN Administration Nausea And Vomiting Senna/Docusate Sodium 2 tab 09/20/20 11:00 Sennosides/Docusate Sodium 8.6/50 Mg Tab PO BID PRN Laxative Effect Simple Syrup 15 ml 09/09/20 09:40 09/17/20 17:43 Simple Syrup 15 Ml FEEDTUBE 15 ml PRN PRN Administration Hypoglycemia Simple Syrup 30 ml 09/09/20 09:40 Simple Syrup 15 Ml FEEDTUBE PRN PRN Hypoglycemia Sodium Bicarbonate 325 mg 09/09/20 09:40 Sodium Bicarbonate 325 Mg Tab FEEDTUBE PRN PRN For Clogged Feeding Tube Sodium Chloride 10 ml 09/07/20 22:00 10/06/20 10:44 Sodium Chloride 0.9% 10 Ml Flush Syringe IV 10 ml BID TAYLOR Administration Sodium Chloride 10 ml 09/07/20 17:55 Sodium Chloride 0.9% 10 Ml Flush Syringe IV PRN PRN LINE FLUSH Valproic Acid 1,000 mg 09/28/20 10:00 10/06/20 10:42 Valproic Acid 250 Mg/5 Ml Oral Liqd FEEDTUBE 1,000 mg BID TAYLOR Administration
[2020-10-06] MEDS: CEFEPIME/NS 2 GM/100 ML 2 GM/100 ML BAG IV SCH (23:22)
[2020-10-07] MEDS: INSULIN LISPRO 100 UNIT/ML SUB-Q SCH ×4 (00:35→17:37)
[2020-10-07] MEDS: hydrALAZINE 25 MG TAB PO SCH ×3 (05:26→21:47)
[2020-10-07] MEDS: INSULIN GLARGINE 100 UNITS/ML SUB-Q SCH (10:00)
--- NOTE | 2020-10-07 10:17 | Progress Note ---
Assessment and Plan Assessment and plan: #S/p cardiopulmonary arrest (out of hospital) Now poorly responsive with brain damage/anoxic brain injury #Toxic metabolic encephalopathy +/-anoxic injury Persists Now has trach and PEG #Acute hypoxic respiratory failure Continue oxygen supplementation #Nonoliguric acute kidney injury secondary to ATN. Patient status post emergent hemodialysis 09/08. Continue hemodialysis as scheduled #Seizure disorder Keppra 1500 twice daily Depakote 1000 mg twice daily #COVID-19 pneumonia Status post COVID-19 treatment #Fever Remains febrile Repeat blood cultures ordered Chest x-ray, urinalysis #Diabetes mellitus Glargine 25 units daily Lispro sliding scale #Hypertension Hydralazine 3 times daily #Atrial fibrillation with RVR Converted to sinus rhythm after initiation of amiodarone drip Continue p.o. amiodarone for now Holding therapeutic anticoagulation due to drop in hemoglobin #Acute on chronic anemia Continue to trend hemoglobin Repeat labs ordered today DVT prophylaxis-Lovenox Full code Disposition-family trying to consider hospice. Patient will need [facility] approval prior to this as per shelter case manager. 09/15/2020. MRI brain for further evaluation. Continue AEDs of valproic acid and Keppra. Continue hemodialysis per nephrology recommendations. Overall prognosis remains guarded and poor. 09/16/2020. ID recommends continue to monitor patient off of antibiotics. Fever most likely of central etiology. Patient with questionable seizures versus myoclonus from anoxic brain injury. Patient unable to undergo MRI due to body habitus. Continue AEDs per neurology recommendations. Inflammatory markers elevated. Patient was recently hospitalized for COVID-19 pneumonia at the [place] prior to being hospitalized here. Patient not a candidate for remdesivir due to hepatic and renal failure. Viral hepatitis panel negative. Overall prognosis extremely poor. 09/17/2020. Fevers have resolved over the past 48 hours. Continue to monitor off antibiotics per ID recommendations. Patient with questionable seizures versus myoclonus from anoxic brain injury. Patient unable to undergo MRI due to body habitus. EEG is nonspecific but given CT of head findings consistent with anoxic encephalopathy, brain injury. Continue AEDs per neurology recommendations. Inflammatory markers elevated. Patient was recently hospitalized for COVID-19 pneumonia at the [place] prior to being hospitalized here. Patient not a candidate for remdesivir due to hepatic and renal failure. Viral hepatitis panel negative. Patient is s/p emergent HD on Friday (hyperK) and Friday - 09/08. Patient also S/p HD 09/15. Continue hemodialysis per nephrology recommendations. Patient currently on AC/PRVC mode ventilation with rate of 30, tidal volume 475, FiO2 30% and PEEP of 6. As stated in neuro note, overall prognosis is very poor. 09/18/2020. Fevers have resolved over the past 72 hours. Continue to monitor off antibiotics per ID recommendations. Leukocytosis persistent for the past 4 days. Patient with questionable seizures/myoclonus from anoxic brain injury. Patient unable to undergo MRI due to body habitus. EEG is nonspecific but given CT of head findings consistent with anoxic encephalopathy, brain injury. Continue AEDs per neurology recommendations. Inflammatory markers elevated. Patient was recently hospitalized for COVID-19 pneumonia at the [place] prior to being hospitalized here. Patient not a candidate for remdesivir due to hepatic and renal failure. Viral hepatitis panel negative. Patient currently on AC/PRVC mode ventilation with rate of 30, tidal volume 475, FiO2 30% and PEEP of 6. Overall prognosis remains guarded/poor. 09/19/2020 Fevers have resolved over the past 4 days. Continue to monitor off antibiotics per ID recommendations. Leukocytosis persistent for the past 4 days. Patient with questionable seizures/myoclonus from anoxic brain injury. Patient unable to undergo MRI due to body habitus. EEG is nonspecific but given CT of head findings consistent with anoxic encephalopathy, brain injury. Continue AEDs per neurology recommendations. Inflammatory markers elevated. Patient was recently hospitalized for COVID-19 pneumonia at the [place] prior to being hospitalized here. Patient not a candidate for remdesivir due to hepatic and renal failure. Viral hepatitis panel negative. Patient currently on AC/PRVC mode ventilation with rate of 30, tidal volume 475, FiO2 30% and PEEP of 6. Overall prognosis remains guarded/poor. 09/20/2020 -Surgery consulted for PEG and trach, will continue to follow. 09/21/2020; patient will have PEG and trach by Dr. hayes today. Prognosis is poor. Continue with current management. Sound Equipment Mechanic is following for vent management. 09/22/2020; patient had PEG and trach yesterday. 09/23/2020; continue PEG Tube Feeding. 09/24/2020; continue PEG tube feeding, patient is on Keppra, lorazepam and phenytoin per neurology recommendation. Patient is on hemodialysis and nephrology is following. Management of mechanical ventilation for CCM. 09/25/2020. Continue PEG tube feeding, patient is on Keppra, lorazepam and phe nytoin per neurology recommendation. Patient is on hemodialysis and nephrology is following. Management of mechanical ventilation for CCM. Continue PSV/CPAP 12/6. Continue tracheostomy care, secretion control and airway management. 09/26/2020. Patient has tolerated PSV for approximately 48 hours. I discussed with pulmonary possibility of T-piece today. Continue tracheostomy care, secretion control and airway management. If patient tolerates T-piece trials, patient will be transferred to the floor. Continue AEDs of Keppra and phenytoin as well as Ativan as needed per neurology recommendations. Continue hemodialysis per nephrology. Continue TF with aspiration precautions. 09/27/2020. Patient continues to tolerate PSV 07/16 at 30% FiO2. T-piece trials per pulmonary. Continue tracheostomy care, secretion control and airway management. Continue AEDs of Keppra and phenytoin as well as Ativan as needed per neurology recommendations. Continue hemodialysis per nephrology. Continue TF with aspiration precautions. 09/28/2020. Patient for T-piece trials per pulmonary. Continue hemodialysis per nephrology. Continue tracheostomy care, secretion control and airway management. Continue AEDs of Keppra and phenytoin as well as Ativan as needed per neurology recommendations. Continue TF with aspiration precautions. 09/29/2020, continue T-piece trials per pulmonary. Continue hemodialysis per nephrology. Continue strict I/O's and labs daily. Monitor for renal recovery. 09/30/2020. Continue T-piece trials per pulmonary recommendations. Continue tracheostomy care, secretion control and airway management. Continue hemodialysis per nephrology. Tight glycemic control. Continue TF with aspiration precautions. 10/01/2020. Patient with T-piece trials and tolerating. Wean to trach collar per pulmonary. Continue tracheostomy care, secretion control and airway management. Continue hemodialysis per nephrology. Tight glycemic control. Continue TF with aspiration precautions. Case management consultation for placement 10/02/20. Continue T-piece trials per pulmonary recommendations. Continue tracheostomy care, secretion control and airway management. Continue hemo dialysis per nephrology. Tight glycemic control. Continue TF with aspiration precautions. 10/03/2020. Continue T-piece trials per pulmonology. Continue tracheostomy care, secretion control and airway management. Continue modalities per nephrology. Discharge planning underway. Needs placement to SNF versus hospice. 10/04/2020. Patient remained febrile with temperature 101 F. Ordered blood culture, chest x-ray, urinalysis. Plan to start antibiotics after blood cultures been obtained. Patient remains hemodynamically stable. Plan to discharge to SNF versus inpatient hospice on the way. 10/05/2020. Started on antibiotics yesterday. Awaiting blood culture. He developed atrial fibrillation with RVR and was placed on amiodaron see awaiting placement. E drip with subsequent conversion to SR. Now on amiodarone PO. Discussed with patients - she would like him to go inpatient hospice or a [facility] care facility. As per CM, [facility] not approving LTC placement at this time. As is still undecided about hospice, inpatient hospice is not accepting h im at this time. has placed a referral to a SNF with inpatient dialysis. Awaiting response from the SNF. 10/06/2020. Hb drop noted. Not on therapeutic anticoagulation [atrial fibrillation] due to duration of atrial fibrillation [lasted less than 2 hours] and also drop in hemoglobin. Continue to monitor hemoglobin. Repeat labs ordered today. Vitals stable. Discussed with patient's yesterday 10/07. HR is controlled. Pending placement. As per CM notes, patient denied acceptance at a [facility] as he has [place] insurance. Will discuss with CM to know other options are available. History Interval history: 65 y/o male with out of hospital cardiac arrest, acute hypoxic respiratory failure and COVID-19 infection. Hospitalist Physical - Physical exam Narrative exam: VITAL SIGNS: Reviewed. GENERAL: Not responsive HEAD: No signs of head trauma. EYES: Closed MOUTH: Oropharynx is normal. NECK: No adenopathy, no JVD. CHEST: Diminished breath sounds with crackles bilaterally CARDIAC: normal S1 and S2, without murmurs, gallops, or rubs. ABDOMEN: Soft, non tender and non distended. No rebound or guarding, and no masses palpated. Bowel Sounds normal. MUSCULOSKELETAL: Bilateral leg edema NEUROLOGIC EXAM: Not responsive SKIN: No obvious lesions - Constitutional Vitals: Temp Pulse Resp BP Pulse Ox 97.4 F L 74 16 128/63 95 10/07/20 08:52 10/07/20 08:52 10/07/20 08:52 10/07/20 08:52 10/07/20 08:52 General appearance: Present: other (On mechanical ventilation) HEART Score - HEART Score Troponin: Troponin T 0.076 ng/mL (0.00-0.029) H 09/07/20 14:00 Results - Labs CBC & Chem 7: 10/06/20 10:12 10/06/20 10:12 Labs: Laboratory Last Values WBC 7.1 K/mm3 (4.5-11.0) 10/06/20 10:12 RBC 2.92 M/mm3 (3.65-5.03) L 10/06/20 10:12 Hgb 8.4 gm/dl (11.8-15.2) L 10/06/20 10:12 Hct 24.7 % (35.5-45.6) L 10/06/20 10:12 MCV 85 fl (84-94) 10/06/20 10:12 MCH 29 pg (28-32) 10/06/20 10:12 MCHC 34 % (32-34) 10/06/20 10:12 RDW 18.1 % (13.2-15.2) H 10/06/20 10:12 Plt Count 182 K/mm3 (140-440) 10/06/20 10:12 Lymph % (Auto) 27.0 % (13.4-35.0) 10/01/20 04:33 [place] % (Auto) Oxygen Therapist 10/06/20 10:12 Eos % (Auto) 1.4 % (0.0-4.3) 10/01/20 04:33 Baso % (Auto) 0.3 % (0.0-1.8) 10/01/20 04:33 Lymph # (Auto) 1.9 K/mm3 (1.2-5.4) 10/01/20 04:33 [place] # (Auto) 1.2 K/mm3 (0.0-0.8) H 10/01/20 04:33 Eos # (Auto) 0.1 K/mm3 (0.0-0.4) 10/01/20 04:33 Baso # (Auto) 0.0 K/mm3 (0.0-0.1) 10/01/20 04:33 Add Manual Diff Complete 10/06/20 10:12 Total Counted 100 10/06/20 10:12 Seg Neutrophils % 54.7 % (40.0-70.0) 10/01/20 04:33 Seg Neuts % (Manual) 65.0 % (40.0-70.0) 10/06/20 10:12 Band Neutrophils % 8.0 % 09/30/20 06:57 Lymphocytes % (Manual) 26.0 % (13.4-35.0) 10/06/20 10:12 Monocytes % (Manual) 6.0 % (0.0-7.3) 10/06/20 10:12 Eosinophils % (Manual) 3.0 % (0.0-4.3) 10/06/20 10:12 Basophils % (Manual) 1.0 % (0.0-1.8) 09/30/20 06:57 Metamyelocytes % 2.0 % 09/08/20 Unknown Promyelocytes % 0 % 10/04/20 10:32 Nucleated RBC % Not Reportable 10/06/20 10:12 Seg Neutrophils # 3.9 K/mm3 (1.8-7.7) 10/01/20 04:33 Seg Neutrophils # Man 4.6 K/mm3 (1.8-7.7) 10/06/20 10:12 Band Neutrophils # 0.0 K/mm3 10/06/20 10:12 Lymphocytes # (Manual) 1.8 K/mm3 (1.2-5.4) 10/06/20 10:12 Abs React Lymphs (Man) 0.0 K/mm3 10/06/20 10:12 Monocytes # (Manual) 0.4 K/mm3 (0.0-0.8) 10/06/20 10:12 Eosinophils # (Manual) 0.2 K/mm3 (0.0-0.4) 10/06/20 10:12 Basophils # (Manual) 0.0 K/mm3 (0.0-0.1) 10/06/20 10:12 Metamyelocytes # 0.0 K/mm3 10/06/20 10:12 Myelocytes # 0.0 K/mm3 10/06/20 10:12 Promyelocytes # 0.0 K/mm3 10/06/20 10:12 Blast Cells # 0.0 K/mm3 10/06/20 10:12 WBC Morphology Not Reportable 10/06/20 10:12 Hypersegmented Neuts Not Reportable 10/06/20 10:12 Hyposegmented Neuts Not Reportable 10/06/20 10:12 Hypogranular Neuts Not Reportable 10/06/20 10:12 Smudge Cells Not Reportable 10/06/20 10:12 Toxic Granulation Not Reportable 10/06/20 10:12 Toxic Vacuolation Not Reportable 10/06/20 10:12 Dohle Bodies Not Reportable 10/06/20 10:12 Pelger-Huet Anomaly Not Reportable 10/06/20 10:12 Justus Rods Not Reportable 10/06/20 10:12 Platelet Estimate Consistent w auto 10/06/20 10:12 Clumped Platelets Not Reportable 10/06/20 10:12 Plt Clumps, EDTA Not Reportable 10/06/20 10:12 Large Platelets Not Reportable 10/06/20 10:12 Giant Platelets Not Reportable 10/06/20 10:12 Platelet Satelliting Not Reportable 10/06/20 10:12 Plt Morphology Comment Not Reportable 10/06/20 10:12 RBC Morphology Not Reportable 10/06/20 10:12 Dimorphic RBCs Not Reportable 10/06/20 10:12 Polychromasia Not Reportable 10/06/20 10:12 Hypochromasia Not Reportable 10/06/20 10:12 Poikilocytosis Not Reportable 10/06/20 10:12 Anisocytosis 1+ 10/06/20 10:12 Microcytosis Not Reportable 10/06/20 10:12 Macrocytosis Not Reportable 10/06/20 10:12 Spherocytes Not Reportable 10/06/20 10:12 Pappenheimer Bodies Not Reportable 10/06/20 10:12 Sickle Cells Not Reportable 10/06/20 10:12 Target Cells Not Reportable 10/06/20 10:12 Tear Drop Cells Not Reportable 10/06/20 10:12 Ovalocytes Not Reportable 10/06/20 10:12 Helmet Cells Not Reportable 10/06/20 10:12 [place] Bodies Not Reportable 10/06/20 10:12 [place] Rings Not Reportable 10/06/20 10:12 [place] Cells Not Reportable 10/06/20 10:12 Bite Cells Not Reportable 10/06/20 10:12 Crenated Cell Not Reportable 10/06/20 10:12 Elliptocytes Not Reportable 10/06/20 10:12 Acanthocytes (Spur) Not Reportable 10/06/20 10:12 Rouleaux Not Reportable 10/06/20 10:12 Hemoglobin C Crystals Not Reportable 10/06/20 10:12 Schistocytes Not Reportable 10/06/20 10:12 Malaria parasites Not Reportable 10/06/20 10:12 Tommie Bodies Not Reportable 10/06/20 10:12 Hem Pathologist Commnt No 10/06/20 10:12 PT 16.1 Sec. (12.2-14.9) H 09/12/20 04:00 INR 1.31 (0.87-1.13) H 09/12/20 04:00 APTT 32.4 Sec. (24.2-36.6) 09/09/20 10:00 D-Dimer 8315.85 ng/mlDDU (0-234) H 09/07/20 14:00 ABG pH 7.468 (7.320-7.450) H 10/02/20 10:16 POC ABG pCO2 37.1 mmHg (32.0-48.0) 10/02/20 10:16 ABG pCO2 33.4 mm Hg 09/11/20 05:40 POC ABG pO2 72.9 mmHg (83-108) L 10/02/20 10:16 ABG pO2 112.1 mm Hg (80.0-90.0) H 09/11/20 05:40 POC ABG HCO3 26.3 10/02/20 10:16 ABG HCO3 28.1 mmol/L (20.0-26.0) H 09/11/20 05:40 ABG O2 Saturation 98.4 % (95.0-99.0) 09/11/20 05:40 ABG O2 Content 11.6 (0.0-44) 09/11/20 05:40 POC ABG Base Excess 2.6 10/02/20 10:16 ABG Base Excess 5.4 mmol/L (-2.0-3.0) H 09/11/20 05:40 ABG Hemoglobin 10.1 (12.0-17.5) L 10/02/20 10:16 ABG Oxyhemoglobin 93.1 (94-98) L 10/02/20 10:16 ABG Carboxyhemoglobin 1.2 % (0.0-5.0) 09/11/20 05:40 ABG Methemoglobin 0.3 (0.0-1.5) 10/02/20 10:16 ABG Sodium 138.5 mmol/L (136.0-145.0) 10/02/20 10:16 ABG Potassium 3.9 mmol/L (3.40-4.50) 10/02/20 10:16 ABG Chloride 108.0 mmol/L (98-107) H 10/02/20 10:16 ABG Glucose 289 mg/dL (65-95) H 10/02/20 10:16 Oxyhemoglobin 96.8 % (95.0-99.0) 09/11/20 05:40 Carboxyhemoglobin 0.8 (0.5-1.5) 10/02/20 10:16 FiO2 35 10/02/20 10:16 Sodium 135 mmol/L (137-145) L 10/06/20 10:12 Potassium 4.1 mmol/L (3.6-5.0) 10/06/20 10:12 Chloride 98.1 mmol/L (98-107) 10/06/20 10:12 Carbon Dioxide 27 mmol/L (22-30) 10/06/20 10:12 Anion Gap 14 mmol/L 10/06/20 10:12 BUN 55 mg/dL (9-20) H 10/06/20 10:12 Creatinine 4.3 mg/dL (0.8-1.3) H 10/06/20 10:12 Estimated GFR 17 ml/min 10/06/20 10:12 BUN/Creatinine Ratio 13 % 10/06/20 10:12 Glucose 304 mg/dL (75-100) H 10/06/20 10:12 POC Glucose 270 mg/dL (70-105) H 10/07/20 05:56 Lactic Acid 2.90 mmol/L (0.7-2.0) H* 09/17/20 13:52 Calcium 9.6 mg/dL (8.4-10.2) 10/06/20 10:12 Phosphorus 8.00 mg/dL (2.5-4.5) H 09/08/20 12:02 Magnesium 1.80 mg/dL (1.7-2.3) 09/08/20 12:02 Ferritin > 2000.0 ng/mL (30.0-300.0) H 09/07/20 14:00 Total Bilirubin 0.30 mg/dL (0.1-1.2) 10/06/20 10:12 Direct Bilirubin 0.5 mg/dL (0-0.2) H 09/08/20 05:00 Indirect Bilirubin 0.5 mg/dL 09/08/20 05:00 AST 52 units/L (5-40) H 10/06/20 10:12 ALT 28 units/L (7-56) 10/06/20 10:12 Alkaline Phosphatase 94 units/L (35-129) 10/06/20 10:12 Ammonia 50.0 umol/L (25-60) 09/07/20 14:00 Lactate Dehydrogenase 882 units/L (91-180) H 09/07/20 14:00 Total Creatine Kinase 477 units/L (55-170) H 09/07/20 14:00 Troponin T 0.076 ng/mL (0.00-0.029) H 09/07/20 14:00 C-Reactive Protein 1.10 mg/dL (0.00-1.30) 09/07/20 14:00 Total Protein 8.4 g/dL (6.3-8.2) H 10/06/20 10:12 Albumin 2.3 g/dL (3.9-5) L 10/06/20 10:12 Albumin/Globulin Ratio 0.4 % 10/06/20 10:12 Triglycerides 220 mg/dL (2-149) H 09/12/20 Unknown Procalcitonin 1.16 ng/mL (<0.15) 10/04/20 10:32 TSH 2.290 mlU/mL (0.270-4.200) 09/07/20 14:00 Arterial Blood Glucose 289 mg/dL (65-95) H 10/02/20 10:16 Arterial Blood Ionized Calcium 5.2 mg/dL (4.6-5.3) 10/02/20 10:16 Urine Color Yellow (Yellow) 10/05/20 09:15 Urine Turbidity Slightly-cloudy (Clear) 10/05/20 09:15 Urine pH 5.0 (5.0-7.0) 10/05/20 09:15 Ur Specific [place] 1.015 (1.003-1.030) 10/05/20 09:15 Urine Protein 30 mg/dl mg/dL (Negative) 10/05/20 09:15 Urine Glucose (UA) Neg mg/dL (Negative) 10/05/20 09:15 Urine Ketones Neg mg/dL (Negative) 10/05/20 09:15 Urine Blood Sm (Negative) 10/05/20 09:15 Urine Nitrite Neg (Negative) 10/05/20 09:15 Urine Bilirubin Neg (Negative) 10/05/20 09:15 Urine Urobilinogen < 2.0 mg/dL (<2.0) 10/05/20 09:15 Ur Leukocyte Esterase Neg (Negative) 10/05/20 09:15 Urine WBC (Auto) 13.0 /HPF (0.0-6.0) H 10/05/20 09:15 Urine RBC (Auto) 19.0 /HPF (0.0-6.0) 10/05/20 09:15 U Epithel Cells (Auto) 6.0 /HPF (0-13.0) 10/05/20 09:15 Urine Bacteria (Auto) 2+ /HPF (Negative) 10/05/20 09:15 Hyaline Casts 1 /LPF 10/05/20 09:15 Urine Mucus Few /HPF 10/05/20 09:15 Urine Yeast (Budding) 3+ /HPF 10/05/20 09:15 Urine Sperm 3+ /HPF (ENTRY LEVEL WEB DEVELOPER) 09/07/20 13:08 Urine Creatinine 182.4 mg/dL (0.1-20.0) H 09/08/20 Unknown Urine Sodium 40 mmol/L 09/08/20 Unknown Salicylates < 0.3 mg/dL (2.8-20.0) L 09/07/20 14:00 Acetaminophen 5.0 ug/mL (10.0-30.0) L 09/07/20 14:00 Valproic Acid 58.9 ug/mL (50-100) 10/04/20 04:55 Plasma/Serum Alcohol < 0.01 % (0-0.07) 09/07/20 14:00 Coronavirus (PCR) Negative (Negative) 10/03/20 10:01 Hepatitis A IgM Ab Non-reactive (NonReactive) 09/07/20 14:00 Hep Bs Antigen Non-reactive (Negative) 09/07/20 14:00 Hep B Core IgM Ab Non-reactive (NonReactive) 09/07/20 14:00 Hepatitis C Antibody Non-reactive (NonReactive) 09/07/20 14:00 HIV 1&2 Antibody Rapid Non react (Non React) 09/07/20 14:34 HIV P24 Antigen Non react (Non React) 09/07/20 14:34 Blood Type O POSITIVE 09/09/20 10:00 Antibody Screen Negative 09/07/20 14:00 Microbiology: Microbiology 10/05/20 09:15 Urine,Clean Catch Urine Culture - Preliminary 10/04/20 10:32 Peripheral/Venous Blood Culture - Preliminary NO GROWTH AFTER 48 HOURS 10/04/20 10:32 Peripheral/Venous Blood Culture - Preliminary NO GROWTH AFTER 48 HOURS Mae/IV: Voiding Method Condom Catheter IV Catheter Type [Right Triple Lumen Cath Femoral] IV Catheter Type [Left Peripheral IV Antecubital] IV Catheter Type [Left Hand] Peripheral IV IV Catheter Type [Right Peripheral IV Antecubital] Active Medications - Current Medications Current Medications: Generic Name Dose Route Start Last Admin Trade Name Freq PRN Reason Stop Dose Admin Acetaminophen 650 mg 10/02/20 09:00 10/04/20 05:10 Acetaminophen 325 Mg/10.15 Ml Oral Liqd Unit Dose PO 650 mg Q4HR PRN Administration Non Cardiac Pain or Temp>100.5 Amiodarone HCl 200 mg 10/05/20 11:00 10/06/20 23:16 Amiodarone 200 Mg Tab PO 200 mg BID TAYLOR Administration Lipase/Protease/Amylase 1 each 09/09/20 09:40 Lipase 10,500/Protease 25,000/Amylase 43,750 (Units) Dr Armenta FEEDTUBE PRN PRN For Clogged Feeding Tube Hydralazine HCl 50 mg 09/23/20 14:00 10/07/20 05:26 Hydralazine 25 Mg Tab PO 50 mg Q8HR TAYLOR Administration Sodium Chloride 100 mls @ 999 mls/hr 09/09/20 13:36 Nacl 0.9% IV JAYJAY PRN Hypotension Cefepime HCl 2 gm in 100 mls @ 200 mls/hr 10/05/20 22:00 10/06/20 23:22 Cefepime/Ns 2 Gm/100 Ml IV 200 mls/hr Q24H TAYLOR Administration Protocol Insulin Glargine 30 units 10/07/20 10:00 Insulin Glargine 100 Units/Ml SUB-Q DAILY TAYLOR Insulin Human Lispro 0 unit 09/12/20 12:00 10/07/20 05:31 Insulin Lispro 100 Unit/Ml SUB-Q 6 unit Q6HR TAYLOR Administration Protocol Lansoprazole 30 mg 09/11/20 11:00 10/06/20 23:23 Lansoprazole 30 Mg Solutab FEEDTUBE 30 mg BID TAYLOR Administration Levetiracetam 1,500 mg 09/28/20 10:00 10/06/20 23:23 Levetiracetam 500 Mg/5 Ml Oral Liqd PO 1,500 mg BID TAYLOR Administration Multivitamins 5 ml 09/09/20 12:00 10/06/20 13:40 Multivitamins 5 Ml Oral Liquid PO Not Given QDAY TAYLOR Ondansetron HCl 4 mg 09/07/20 17:55 09/19/20 04:00 Ondansetron 4 Mg/2 Ml Inj IV 4 mg Q8H PRN Administration Nausea And Vomiting Senna/Docusate Sodium 2 tab 09/20/20 11:00 Sennosides/Docusate Sodium 8.6/50 Mg Tab PO BID PRN Laxative Effect Simple Syrup 15 ml 09/09/20 09:40 09/17/20 17:43 Simple Syrup 15 Ml FEEDTUBE 15 ml PRN PRN Administration Hypoglycemia Simple Syrup 30 ml 09/09/20 09:40 Simple Syrup 15 Ml FEEDTUBE PRN PRN Hypoglycemia Sodium Bicarbonate 325 mg 09/09/20 09:40 Sodium Bicarbonate 325 Mg Tab FEEDTUBE PRN PRN For Clogged Feeding Tube Sodium Chloride 10 ml 09/07/20 22:00 10/06/20 23:16 Sodium Chloride 0.9% 10 Ml Flush Syringe IV 10 ml BID TAYLOR Administration Sodium Chloride 10 ml 09/07/20 17:55 Sodium Chloride 0.9% 10 Ml Flush Syringe IV PRN PRN LINE FLUSH Valproic Acid 1,000 mg 09/28/20 10:00 10/06/20 23:15 Valproic Acid 250 Mg/5 Ml Oral Liqd FEEDTUBE 1,000 mg BID TAYLOR Administration Nutrition/Malnutrition Assess - Dietary Evaluation Nutrition/Malnutrition Findings: Nutrition Notes Start: 09/08/20 12:01 Freq: Status: Active Protocol: Document 10/06/20 10:48 [email or web address] (Rec: 10/06/20 11:09 [email or web address]) Co-Sign 10/06/20 10:48 [email or web address] Nutrition Notes Initial or Follow up Reassessment Current Diagnosis Acute Kidney Injury, Respiratory Failure Other Pertinent Diagnosis on HD, cardiac arrest, COVID ( +), metabolic encephalopathy, pneu Current Diet Nepro 1.8 at 45 mL/hr (goal rate) Labs/Tests BUN 55 Na 135 BG 304 Pertinent Medications Humalog 6 units Lantus 25 units Height 6 ft Weight 145.18 kg [place] Body Weight (kg) 80.90 BMI 43.4 Weight Status Morbidly Obese Subjective/Other Information F/U TF tolerance. Spoke with RN, Pt is tolerating TF at goal rate of 45ml/hr. Percent of energy/protein needs met: 100%/64% Burn Absent Trauma Absent GI Symptoms None Difficulty In Swallowing Food Allergy No Skin Integrity/Comment pressure ulcer to lips Current % PO Negligible Minimum of two criteria No Fluid Accumulation Mild (non-severe) #3 Nutrition Diagnosis Increased nutrient needs ( specify in comment below) Diagnosis Progress(for reassessment Continues documentation) #2 Nutrition Diagnosis Increased nutrient needs ( specify in comment below) As Evidenced by Signs and Symptoms Pt on HD and not meeting protein needs Diagnosis Progress(for reassessment Continues documentation) #1 Nutrition Diagnosis Inadequate oral intake Diagnosis Progress(for reassessment Continues documentation) Is patient on ventilator? No Is Patient Ambulatory and/or Out of Bed No REE-([place]-confined to bed) 2740.164 Kcal/Kg value to use for calculation 13 Approximate Energy Requirements Using 1887 kcal/Kg Calculation Used for Recommendations Kcal/kg Additional Notes PRO needs: >136g (>1.2g/kg AdjBW 113.04kg) Fluid needs are 1000-1500ml Nutrition Intervention Change Diet Order: TF Nutrition Support: Nepro at 45ml/hr Flush 120ml q4h Kcal 1,944 Protein (gm) 87 Fluid (mL) 785 Goal #1 Meet kcal and protein needs as best as possible via TF Anticipated Discharge Needs: TF Follow-Up By: 10/10/20 Additional Comments F/U stable TF
[2020-10-07] MEDS: VALPROIC ACID 250 MG/5 ML ORAL LIQD FEEDTUBE SCH ×2 (10:19→21:46)
[2020-10-07] MEDS: levETIRAcetam 500 MG/5 ML ORAL LIQD PO SCH ×2 (10:19→21:46)
[2020-10-07] MEDS: LANSOPRAZOLE 30 MG SOLUTAB FEEDTUBE SCH ×2 (10:19→21:45)
[2020-10-07] MEDS: AMIODARONE 200 MG TAB PO SCH ×2 (10:21→21:48)
[2020-10-07] MEDS: MULTIVITAMINS 5 ML ORAL LIQUID PO SCH (10:21)
--- NOTE | 2020-10-07 20:36 | Progress Note ---
Assessment and Plan Impression: * Nonoliguric RYAN secondary to ATN * Severe hyperkalemia - resolved * COVID 19 PNA * s/p OOH cardiac arrest * Acute hypoxic respiratory failure * Acute encephalopathy * Seizure activity * Anemia * Hypernatremia * Fever --Vascath removed (Oct 04) --Blood cx: NGTD (Oct 04) Plan: * No acute need for HD today - no labs are available for review. Patient w/ good UOP - appx 1.7L for today * Rate control per cardiology * Abx per primary team * Strict I/O * Keep MAP > 65 * Dose medications for renal function * Avoid potential nephrotoxins * Prognosis is poor. Recommend palliative care/hospice Subjective Date of service: 10/07/20 Principal diagnosis: Abnormal LFTs, s/p cardiac arrest, acute kidney injury with ATN Interval history: Patient remains unresponsive. No acute events. Remains afebrile. Objective - Vital Signs Vital signs: Vital Signs - 12hr 10/07/20 10/07/20 10/07/20 08:50 08:52 09:05 Temperature 97.4 F L Pulse Rate 74 Pulse Rate [ From Monitor] Pulse Rate [ Left Dorsalis Pedis] Pulse Rate [ Right Dorsalis Pedis] Respiratory 16 Rate Blood Pressure 128/63 Blood Pressure [Right] O2 Sat by Pulse 99 95 Oximetry O2 Sat by Pulse 99 Oximetry [ Assessment] 10/07/20 10/07/20 10/07/20 10:00 10:22 12:00 Temperature 98.2 F Pulse Rate 73 73 76 Pulse Rate [ 82 From Monitor] Pulse Rate [ 80 Left Dorsalis Pedis] Pulse Rate [ 80 Right Dorsalis Pedis] Respiratory 24 Rate Blood Pressure 131/64 Blood Pressure 134/66 [Right] O2 Sat by Pulse 99 98 Oximetry O2 Sat by Pulse Oximetry [ Assessment] 10/07/20 10/07/20 10/07/20 12:31 14:07 14:24 Temperature Pulse Rate 75 75 Pulse Rate [ From Monitor] Pulse Rate [ Left Dorsalis Pedis] Pulse Rate [ Right Dorsalis Pedis] Respiratory Rate Blood Pressure 134/66 134/66 Blood Pressure [Right] O2 Sat by Pulse 98 98 Oximetry O2 Sat by Pulse Oximetry [ Assessment] 10/07/20 10/07/20 15:05 16:48 Temperature 97.4 F L Pulse Rate 83 Pulse Rate [ From Monitor] Pulse Rate [ Left Dorsalis Pedis] Pulse Rate [ Right Dorsalis Pedis] Respiratory 18 Rate Blood Pressure 134/54 Blood Pressure [Right] O2 Sat by Pulse 96 Oximetry O2 Sat by Pulse 98 Oximetry [ Assessment] - General Appearance General appearance: well-developed, well-nourished EENT: ATNC Neck: other (trach) Respiratory: Present: Clear to Ascultation Cardiology: regular, S1S2 Gastrointestinal: normal, no tenderness, no distended Integumentary: no rash, warm and dry Musculoskeletal: other (trace edema) - Lab 10/06/20 10:12 10/06/20 10:12 Most recent lab results ABG pH 7.468 (7.320-7.450) H 10/02/20 10:16 ABG pCO2 33.4 mm Hg 09/11/20 05:40 ABG pO2 112.1 mm Hg (80.0-90.0) H 09/11/20 05:40 ABG HCO3 28.1 mmol/L (20.0-26.0) H 09/11/20 05:40 ABG O2 Saturation 98.4 % (95.0-99.0) 09/11/20 05:40 Calcium 9.6 mg/dL (8.4-10.2) 10/06/20 10:12 Phosphorus 8.00 mg/dL (2.5-4.5) H 09/08/20 12:02 Magnesium 1.80 mg/dL (1.7-2.3) 09/08/20 12:02 Urine Creatinine 182.4 mg/dL (0.1-20.0) H 09/08/20 Unknown Urine Sodium 40 mmol/L 09/08/20 Unknown Medications & Allergies - Medications Allergies/Adverse Reactions: Allergies No Known Allergies Allergy (Verified 09/21/20 21:00) Verified with , no known drug allergies. Home Medications: Home Medications Medication Instructions Recorded Confirmed Last Taken Type Albuterol Sulfate 60 mcg IH PRN 09/11/20 09/11/20 Unknown History Cholecalciferol (Vitamin D3) 25 tab PO DAILY 09/11/20 09/11/20 Unknown History Cozaar 25 tab PO DAILY 09/11/20 09/11/20 Unknown History HumaLOG 14 unit SQ AC 09/11/20 09/11/20 Unknown History Hydralazine HCl 50 tab PO TID 09/11/20 09/11/20 Unknown History Isosorbide Dinitrate 30 mg PO DAILY 09/11/20 09/11/20 Unknown History Lantus VIAL 54 units SQ HS 09/11/20 09/11/20 Unknown History Lasix 20 tab PO DAILY 09/11/20 09/11/20 Unknown History Nifedipine 30 tab PO DAILY 09/11/20 09/11/20 Unknown History Active Medications: Generic Name Dose Route Start Last Admin Trade Name Freq PRN Reason Stop Dose Admin Acetaminophen 650 mg 10/02/20 09:00 10/04/20 05:10 Acetaminophen 325 Mg/10.15 Ml Oral Liqd Unit Dose PO 650 mg Q4HR PRN Administration Non Cardiac Pain or Temp>100.5 Amiodarone HCl 200 mg 10/05/20 11:00 10/07/20 10:21 Amiodarone 200 Mg Tab PO 200 mg BID TAYLOR Administration Lipase/Protease/Amylase 1 each 09/09/20 09:40 Lipase 10,500/Protease 25,000/Amylase 43,750 (Units) Dr Armenta FEEDTUBE PRN PRN For Clogged Feeding Tube Hydralazine HCl 50 mg 09/23/20 14:00 10/07/20 14:07 Hydralazine 25 Mg Tab PO 50 mg Q8HR TAYLOR Administration Sodium Chloride 100 mls @ 999 mls/hr 09/09/20 13:36 Nacl 0.9% IV JAYJAY PRN Hypotension Cefepime HCl 2 gm in 100 mls @ 200 mls/hr 10/05/20 22:00 10/06/20 23:22 Cefepime/Ns 2 Gm/100 Ml IV 200 mls/hr Q24H TAYLOR Administration Protocol Insulin Glargine 30 units 10/07/20 10:00 10/07/20 10:00 Insulin Glargine 100 Units/Ml SUB-Q 30 units DAILY TAYLOR Administration Insulin Human Lispro 0 unit 09/12/20 12:00 10/07/20 17:37 Insulin Lispro 100 Unit/Ml SUB-Q 4 unit Q6HR TAYLOR Administration Protocol Lansoprazole 30 mg 09/11/20 11:00 10/07/20 10:19 Lansoprazole 30 Mg Araseli FEEDTUBE 30 mg BID TAYLOR Administration Levetiracetam 1,500 mg 09/28/20 10:00 10/07/20 10:19 Levetiracetam 500 Mg/5 Ml Oral Liqd PO 1,500 mg BID TAYLOR Administration Multivitamins 5 ml 09/09/20 12:00 10/07/20 10:21 Multivitamins 5 Ml Oral Liquid PO 5 ml QDAY TAYLOR Administration Ondansetron HCl 4 mg 09/07/20 17:55 09/19/20 04:00 Ondansetron 4 Mg/2 Ml Inj IV 4 mg Q8H PRN Administration Nausea And Vomiting Senna/Docusate Sodium 2 tab 09/20/20 11:00 Sennosides/Docusate Sodium 8.6/50 Mg Tab PO BID PRN Laxative Effect Simple Syrup 15 ml 09/09/20 09:40 09/17/20 17:43 Simple Syrup 15 Ml FEEDTUBE 15 ml PRN PRN Administration Hypoglycemia Simple Syrup 30 ml 09/09/20 09:40 Simple Syrup 15 Ml FEEDTUBE PRN PRN Hypoglycemia Sodium Bicarbonate 325 mg 09/09/20 09:40 Sodium Bicarbonate 325 Mg Tab FEEDTUBE PRN PRN For Clogged Feeding Tube Sodium Chloride 10 ml 09/07/20 22:00 10/07/20 10:21 Sodium Chloride 0.9% 10 Ml Flush Syringe IV 10 ml BID TAYLOR Administration Sodium Chloride 10 ml 09/07/20 17:55 Sodium Chloride 0.9% 10 Ml Flush Syringe IV PRN PRN LINE FLUSH Valproic Acid 1,000 mg 09/28/20 10:00 10/07/20 10:19 Valproic Acid 250 Mg/5 Ml Oral Liqd FEEDTUBE 1,000 mg BID TAYLOR Administration
[2020-10-07] MEDS: CEFEPIME/NS 2 GM/100 ML 2 GM/100 ML BAG IV SCH (21:44)
[2020-10-08] MEDS: INSULIN LISPRO 100 UNIT/ML SUB-Q SCH ×5 (00:49→23:34)
[2020-10-08] MEDS: hydrALAZINE 25 MG TAB PO SCH ×3 (05:43→22:59)
[2020-10-08 07:14] LABS: Calcium 9.7 mg/dL (8.4-10.2)
--- NOTE | 2020-10-08 10:22 | Progress Note ---
Assessment and Plan Assessment and plan: #S/p cardiopulmonary arrest (out of hospital) Now poorly responsive with brain damage/anoxic brain injury #Toxic metabolic encephalopathy +/-anoxic injury Persists Now has trach and PEG #Acute hypoxic respiratory failure Continue oxygen supplementation #Nonoliguric acute kidney injury secondary to ATN. Patient status post emergent hemodialysis 09/08. Continue hemodialysis as scheduled #Seizure disorder Keppra 1500 twice daily Depakote 1000 mg twice daily #COVID-19 pneumonia Status post COVID-19 treatment #Fever Remains febrile Repeat blood cultures ordered Chest x-ray, urinalysis #Diabetes mellitus Glargine 25 units daily Lispro sliding scale #Hypertension Hydralazine 3 times daily #Atrial fibrillation with RVR Converted to sinus rhythm after initiation of amiodarone drip Continue p.o. amiodarone for now Holding therapeutic anticoagulation due to drop in hemoglobin #Acute on chronic anemia Continue to trend hemoglobin Repeat labs ordered today DVT prophylaxis-Lovenox Full code Disposition-family trying to consider hospice. Patient will need [facility] approval prior to this as per director of casework services. 09/15/2020. MRI brain for further evaluation. Continue AEDs of valproic acid and Keppra. Continue hemodialysis per nephrology recommendations. Overall prognosis remains guarded and poor. 09/16/2020. ID recommends continue to monitor patient off of antibiotics. Fever most likely of central etiology. Patient with questionable seizures versus myoclonus from anoxic brain injury. Patient unable to undergo MRI due to body habitus. Continue AEDs per neurology recommendations. Inflammatory markers elevated. Patient was recently hospitalized for COVID-19 pneumonia at the [place] prior to being hospitalized here. Patient not a candidate for remdesivir due to hepatic and renal failure. Viral hepatitis panel negative. Overall prognosis extremely poor. 09/17/2020. Fevers have resolved over the past 48 hours. Continue to monitor off antibiotics per ID recommendations. Patient with questionable seizures versus myoclonus from anoxic brain injury. Patient unable to undergo MRI due to body habitus. EEG is nonspecific but given CT of head findings consistent with anoxic encephalopathy, brain injury. Continue AEDs per neurology recommendations. Inflammatory markers elevated. Patient was recently hospitalized for COVID-19 pneumonia at the [place] prior to being hospitalized here. Patient not a candidate for remdesivir due to hepatic and renal failure. Viral hepatitis panel negative. Patient is s/p emergent HD on Friday (hyperK) and Friday - 09/08. Patient also S/p HD 09/15. Continue hemodialysis per nephrology recommendations. Patient currently on AC/PRVC mode ventilation with rate of 30, tidal volume 475, FiO2 30% and PEEP of 6. As stated in neuro note, overall prognosis is very poor. 09/18/2020. Fevers have resolved over the past 72 hours. Continue to monitor off antibiotics per ID recommendations. Leukocytosis persistent for the past 4 days. Patient with questionable seizures/myoclonus from anoxic brain injury. Patient unable to undergo MRI due to body habitus. EEG is nonspecific but given CT of head findings consistent with anoxic encephalopathy, brain injury. Continue AEDs per neurology recommendations. Inflammatory markers elevated. Patient was recently hospitalized for COVID-19 pneumonia at the [place] prior to being hospitalized here. Patient not a candidate for remdesivir due to hepatic and renal failure. Viral hepatitis panel negative. Patient currently on AC/PRVC mode ventilation with rate of 30, tidal volume 475, FiO2 30% and PEEP of 6. Overall prognosis remains guarded/poor. 09/19/2020 Fevers have resolved over the past 4 days. Continue to monitor off antibiotics per ID recommendations. Leukocytosis persistent for the past 4 days. Patient with questionable seizures/myoclonus from anoxic brain injury. Patient unable to undergo MRI due to body habitus. EEG is nonspecific but given CT of head findings consistent with anoxic encephalopathy, brain injury. Continue AEDs per neurology recommendations. Inflammatory markers elevated. Patient was recently hospitalized for COVID-19 pneumonia at the [place] prior to being hospitalized here. Patient not a candidate for remdesivir due to hepatic and renal failure. Viral hepatitis panel negative. Patient currently on AC/PRVC mode ventilation with rate of 30, tidal volume 475, FiO2 30% and PEEP of 6. Overall prognosis remains guarded/poor. 09/20/2020 -Surgery consulted for PEG and trach, will continue to follow. 09/21/2020; patient will have PEG and trach by Dr. hayes today. Prognosis is poor. Continue with current management. Foreign Language Professor is following for vent management. 09/22/2020; patient had PEG and trach yesterday. 09/23/2020; continue PEG Tube Feeding. 09/24/2020; continue PEG tube feeding, patient is on Keppra, lorazepam and phenytoin per neurology recommendation. Patient is on hemodialysis and nephrology is following. Management of mechanical ventilation for CCM. 09/25/2020. Continue PEG tube feeding, patient is on Keppra, lorazepam and phe nytoin per neurology recommendation. Patient is on hemodialysis and nephrology is following. Management of mechanical ventilation for CCM. Continue PSV/CPAP 12/6. Continue tracheostomy care, secretion control and airway management. 09/26/2020. Patient has tolerated PSV for approximately 48 hours. I discussed with pulmonary possibility of T-piece today. Continue tracheostomy care, secretion control and airway management. If patient tolerates T-piece trials, patient will be transferred to the floor. Continue AEDs of Keppra and phenytoin as well as Ativan as needed per neurology recommendations. Continue hemodialysis per nephrology. Continue TF with aspiration precautions. 09/27/2020. Patient continues to tolerate PSV 07/16 at 30% FiO2. T-piece trials per pulmonary. Continue tracheostomy care, secretion control and airway management. Continue AEDs of Keppra and phenytoin as well as Ativan as needed per neurology recommendations. Continue hemodialysis per nephrology. Continue TF with aspiration precautions. 09/28/2020. Patient for T-piece trials per pulmonary. Continue hemodialysis per nephrology. Continue tracheostomy care, secretion control and airway management. Continue AEDs of Keppra and phenytoin as well as Ativan as needed per neurology recommendations. Continue TF with aspiration precautions. 09/29/2020, continue T-piece trials per pulmonary. Continue hemodialysis per nephrology. Continue strict I/O's and labs daily. Monitor for renal recovery. 09/30/2020. Continue T-piece trials per pulmonary recommendations. Continue tracheostomy care, secretion control and airway management. Continue hemodialysis per nephrology. Tight glycemic control. Continue TF with aspiration precautions. 10/01/2020. Patient with T-piece trials and tolerating. Wean to trach collar per pulmonary. Continue tracheostomy care, secretion control and airway management. Continue hemodialysis per nephrology. Tight glycemic control. Continue TF with aspiration precautions. Case management consultation for placement 10/02/20. Continue T-piece trials per pulmonary recommendations. Continue tracheostomy care, secretion control and airway management. Continue hemo dialysis per nephrology. Tight glycemic control. Continue TF with aspiration precautions. 10/03/2020. Continue T-piece trials per pulmonology. Continue tracheostomy care, secretion control and airway management. Continue modalities per nephrology. Discharge planning underway. Needs placement to SNF versus hospice. 10/04/2020. Patient remained febrile with temperature 101 F. Ordered blood culture, chest x-ray, urinalysis. Plan to start antibiotics after blood cultures been obtained. Patient remains hemodynamically stable. Plan to discharge to SNF versus inpatient hospice on the way. 10/05/2020. Started on antibiotics yesterday. Awaiting blood culture. He developed atrial fibrillation with RVR and was placed on amiodaron see awaiting placement. E drip with subsequent conversion to SR. Now on amiodarone PO. Discussed with patients - she would like him to go inpatient hospice or a senior living care facility. As per CM, [facility] not approving LTC placement at this time. As is still undecided about hospice, inpatient hospice is not accepting h im at this time. has placed a referral to a SNF with inpatient dialysis. Awaiting response from the SNF. 10/06/2020. Hb drop noted. Not on therapeutic anticoagulation [atrial fibrillation] due to duration of atrial fibrillation [lasted less than 2 hours] and also drop in hemoglobin. Continue to monitor hemoglobin. Repeat labs ordered today. Vitals stable. Discussed with patient's yesterday 10/07. HR is controlled. Pending placement. As per CM notes, patient denied acceptance at a [facility] as he has [place]. Will discuss with CM to know other options are available. 10/08. Vitals stable. Will discuss discharge plan with spouse today as it looks like only option left is inpatient hospice. History Interval history: 65 y/o male with out of hospital cardiac arrest, acute hypoxic respiratory failure and COVID-19 infection. Hospitalist Physical - Physical exam Narrative exam: VITAL SIGNS: Reviewed. GENERAL: Not responsive HEAD: No signs of head trauma. EYES: Closed MOUTH: Oropharynx is normal. NECK: No adenopathy, no JVD. CHEST: Diminished breath sounds with crackles bilaterally CARDIAC: normal S1 and S2, without murmurs, gallops, or rubs. ABDOMEN: Soft, non tender and non distended. No rebound or guarding, and no masses palpated. Bowel Sounds normal. MUSCULOSKELETAL: Bilateral leg edema NEUROLOGIC EXAM: Not responsive SKIN: No obvious lesions - Constitutional Vitals: Temp Pulse Resp BP Pulse Ox 98.4 F 77 18 115/59 94 10/08/20 08:49 10/08/20 08:49 10/08/20 08:49 10/08/20 08:49 10/08/20 08:49 General appearance: Present: other (On mechanical ventilation) HEART Score - HEART Score Troponin: Troponin T 0.076 ng/mL (0.00-0.029) H 09/07/20 14:00 Results - Labs CBC & Chem 7: 10/06/20 10:12 10/08/20 06:03 Labs: Laboratory Last Values WBC 7.1 K/mm3 (4.5-11.0) 10/06/20 10:12 RBC 2.92 M/mm3 (3.65-5.03) L 10/06/20 10:12 Hgb 8.4 gm/dl (11.8-15.2) L 10/06/20 10:12 Hct 24.7 % (35.5-45.6) L 10/06/20 10:12 MCV 85 fl (84-94) 10/06/20 10:12 MCH 29 pg (28-32) 10/06/20 10:12 MCHC 34 % (32-34) 10/06/20 10:12 RDW 18.1 % (13.2-15.2) H 10/06/20 10:12 Plt Count 182 K/mm3 (140-440) 10/06/20 10:12 Lymph % (Auto) 27.0 % (13.4-35.0) 10/01/20 04:33 [place] % (Auto) Hand Marker 10/06/20 10:12 Eos % (Auto) 1.4 % (0.0-4.3) 10/01/20 04:33 Baso % (Auto) 0.3 % (0.0-1.8) 10/01/20 04:33 Lymph # (Auto) 1.9 K/mm3 (1.2-5.4) 10/01/20 04:33 [place] # (Auto) 1.2 K/mm3 (0.0-0.8) H 10/01/20 04:33 Eos # (Auto) 0.1 K/mm3 (0.0-0.4) 10/01/20 04:33 Baso # (Auto) 0.0 K/mm3 (0.0-0.1) 10/01/20 04:33 Add Manual Diff Complete 10/06/20 10:12 Total Counted 100 10/06/20 10:12 Seg Neutrophils % 54.7 % (40.0-70.0) 10/01/20 04:33 Seg Neuts % (Manual) 65.0 % (40.0-70.0) 10/06/20 10:12 Band Neutrophils % 8.0 % 09/30/20 06:57 Lymphocytes % (Manual) 26.0 % (13.4-35.0) 10/06/20 10:12 Monocytes % (Manual) 6.0 % (0.0-7.3) 10/06/20 10:12 Eosinophils % (Manual) 3.0 % (0.0-4.3) 10/06/20 10:12 Basophils % (Manual) 1.0 % (0.0-1.8) 09/30/20 06:57 Metamyelocytes % 2.0 % 09/08/20 Unknown Promyelocytes % 0 % 10/04/20 10:32 Nucleated RBC % Not Reportable 10/06/20 10:12 Seg Neutrophils # 3.9 K/mm3 (1.8-7.7) 10/01/20 04:33 Seg Neutrophils # Man 4.6 K/mm3 (1.8-7.7) 10/06/20 10:12 Band Neutrophils # 0.0 K/mm3 10/06/20 10:12 Lymphocytes # (Manual) 1.8 K/mm3 (1.2-5.4) 10/06/20 10:12 Abs React Lymphs (Man) 0.0 K/mm3 10/06/20 10:12 Monocytes # (Manual) 0.4 K/mm3 (0.0-0.8) 10/06/20 10:12 Eosinophils # (Manual) 0.2 K/mm3 (0.0-0.4) 10/06/20 10:12 Basophils # (Manual) 0.0 K/mm3 (0.0-0.1) 10/06/20 10:12 Metamyelocytes # 0.0 K/mm3 10/06/20 10:12 Myelocytes # 0.0 K/mm3 10/06/20 10:12 Promyelocytes # 0.0 K/mm3 10/06/20 10:12 Blast Cells # 0.0 K/mm3 10/06/20 10:12 WBC Morphology Not Reportable 10/06/20 10:12 Hypersegmented Neuts Not Reportable 10/06/20 10:12 Hyposegmented Neuts Not Reportable 10/06/20 10:12 Hypogranular Neuts Not Reportable 10/06/20 10:12 Smudge Cells Not Reportable 10/06/20 10:12 Toxic Granulation Not Reportable 10/06/20 10:12 Toxic Vacuolation Not Reportable 10/06/20 10:12 Dohle Bodies Not Reportable 10/06/20 10:12 Pelger-Huet Anomaly Not Reportable 10/06/20 10:12 Justus Rods Not Reportable 10/06/20 10:12 Platelet Estimate Consistent w auto 10/06/20 10:12 Clumped Platelets Not Reportable 10/06/20 10:12 Plt Clumps, EDTA Not Reportable 10/06/20 10:12 Large Platelets Not Reportable 10/06/20 10:12 Giant Platelets Not Reportable 10/06/20 10:12 Platelet Satelliting Not Reportable 10/06/20 10:12 Plt Morphology Comment Not Reportable 10/06/20 10:12 RBC Morphology Not Reportable 10/06/20 10:12 Dimorphic RBCs Not Reportable 10/06/20 10:12 Polychromasia Not Reportable 10/06/20 10:12 Hypochromasia Not Reportable 10/06/20 10:12 Poikilocytosis Not Reportable 10/06/20 10:12 Anisocytosis 1+ 10/06/20 10:12 Microcytosis Not Reportable 10/06/20 10:12 Macrocytosis Not Reportable 10/06/20 10:12 Spherocytes Not Reportable 10/06/20 10:12 Pappenheimer Bodies Not Reportable 10/06/20 10:12 Sickle Cells Not Reportable 10/06/20 10:12 Target Cells Not Reportable 10/06/20 10:12 Tear Drop Cells Not Reportable 10/06/20 10:12 Ovalocytes Not Reportable 10/06/20 10:12 Helmet Cells Not Reportable 10/06/20 10:12 [place] Bodies Not Reportable 10/06/20 10:12 [place] Rings Not Reportable 10/06/20 10:12 Ragan Cells Not Reportable 10/06/20 10:12 Bite Cells Not Reportable 10/06/20 10:12 Crenated Cell Not Reportable 10/06/20 10:12 Elliptocytes Not Reportable 10/06/20 10:12 Acanthocytes (Spur) Not Reportable 10/06/20 10:12 Rouleaux Not Reportable 10/06/20 10:12 Hemoglobin C Crystals Not Reportable 10/06/20 10:12 Schistocytes Not Reportable 10/06/20 10:12 Malaria parasites Not Reportable 10/06/20 10:12 [place] Bodies Not Reportable 10/06/20 10:12 Hem Pathologist Commnt No 10/06/20 10:12 PT 16.1 Sec. (12.2-14.9) H 09/12/20 04:00 INR 1.31 (0.87-1.13) H 09/12/20 04:00 APTT 32.4 Sec. (24.2-36.6) 09/09/20 10:00 D-Dimer 8315.85 ng/mlDDU (0-234) H 09/07/20 14:00 ABG pH 7.468 (7.320-7.450) H 10/02/20 10:16 POC ABG pCO2 37.1 mmHg (32.0-48.0) 10/02/20 10:16 ABG pCO2 33.4 mm Hg 09/11/20 05:40 POC ABG pO2 72.9 mmHg (83-108) L 10/02/20 10:16 ABG pO2 112.1 mm Hg (80.0-90.0) H 09/11/20 05:40 POC ABG HCO3 26.3 10/02/20 10:16 ABG HCO3 28.1 mmol/L (20.0-26.0) H 09/11/20 05:40 ABG O2 Saturation 98.4 % (95.0-99.0) 09/11/20 05:40 ABG O2 Content 11.6 (0.0-44) 09/11/20 05:40 POC ABG Base Excess 2.6 10/02/20 10:16 ABG Base Excess 5.4 mmol/L (-2.0-3.0) H 09/11/20 05:40 ABG Hemoglobin 10.1 (12.0-17.5) L 10/02/20 10:16 ABG Oxyhemoglobin 93.1 (94-98) L 10/02/20 10:16 ABG Carboxyhemoglobin 1.2 % (0.0-5.0) 09/11/20 05:40 ABG Methemoglobin 0.3 (0.0-1.5) 10/02/20 10:16 ABG Sodium 138.5 mmol/L (136.0-145.0) 10/02/20 10:16 ABG Potassium 3.9 mmol/L (3.40-4.50) 10/02/20 10:16 ABG Chloride 108.0 mmol/L (98-107) H 10/02/20 10:16 ABG Glucose 289 mg/dL (65-95) H 10/02/20 10:16 Oxyhemoglobin 96.8 % (95.0-99.0) 09/11/20 05:40 Carboxyhemoglobin 0.8 (0.5-1.5) 10/02/20 10:16 FiO2 35 10/02/20 10:16 Sodium 136 mmol/L (137-145) L 10/08/20 06:03 Potassium 3.9 mmol/L (3.6-5.0) 10/08/20 06:03 Chloride 98.5 mmol/L (98-107) 10/08/20 06:03 Carbon Dioxide 30 mmol/L (22-30) 10/08/20 06:03 Anion Gap 11 mmol/L 10/08/20 06:03 BUN 71 mg/dL (9-20) H 10/08/20 06:03 Creatinine 4.5 mg/dL (0.8-1.3) H 10/08/20 06:03 Estimated GFR 16 ml/min 10/08/20 06:03 BUN/Creatinine Ratio 16 % 10/08/20 06:03 Glucose 240 mg/dL (75-100) H 10/08/20 06:03 POC Glucose 235 mg/dL (70-105) H 10/08/20 05:51 Lactic Acid 2.90 mmol/L (0.7-2.0) H* 09/17/20 13:52 Calcium 9.7 mg/dL (8.4-10.2) 10/08/20 06:03 Phosphorus 8.00 mg/dL (2.5-4.5) H 09/08/20 12:02 Magnesium 1.80 mg/dL (1.7-2.3) 09/08/20 12:02 Ferritin > 2000.0 ng/mL (30.0-300.0) H 09/07/20 14:00 Total Bilirubin 0.30 mg/dL (0.1-1.2) 10/06/20 10:12 Direct Bilirubin 0.5 mg/dL (0-0.2) H 09/08/20 05:00 Indirect Bilirubin 0.5 mg/dL 09/08/20 05:00 AST 52 units/L (5-40) H 10/06/20 10:12 ALT 28 units/L (7-56) 10/06/20 10:12 Alkaline Phosphatase 94 units/L (35-129) 10/06/20 10:12 Ammonia 50.0 umol/L (25-60) 09/07/20 14:00 Lactate Dehydrogenase 882 units/L (91-180) H 09/07/20 14:00 Total Creatine Kinase 477 units/L (55-170) H 09/07/20 14:00 Troponin T 0.076 ng/mL (0.00-0.029) H 09/07/20 14:00 C-Reactive Protein 1.10 mg/dL (0.00-1.30) 09/07/20 14:00 Total Protein 8.4 g/dL (6.3-8.2) H 10/06/20 10:12 Albumin 2.3 g/dL (3.9-5) L 10/06/20 10:12 Albumin/Globulin Ratio 0.4 % 10/06/20 10:12 Triglycerides 220 mg/dL (2-149) H 09/12/20 Unknown Procalcitonin 1.16 ng/mL (<0.15) 10/04/20 10:32 TSH 2.290 mlU/mL (0.270-4.200) 09/07/20 14:00 Arterial Blood Glucose 289 mg/dL (65-95) H 10/02/20 10:16 Arterial Blood Ionized Calcium 5.2 mg/dL (4.6-5.3) 10/02/20 10:16 Urine Color Yellow (Yellow) 10/05/20 09:15 Urine Turbidity Slightly-cloudy (Clear) 10/05/20 09:15 Urine pH 5.0 (5.0-7.0) 10/05/20 09:15 Ur Specific [place] 1.015 (1.003-1.030) 10/05/20 09:15 Urine Protein 30 mg/dl mg/dL (Negative) 10/05/20 09:15 Urine Glucose (UA) Neg mg/dL (Negative) 10/05/20 09:15 Urine Ketones Neg mg/dL (Negative) 10/05/20 09:15 Urine Blood Sm (Negative) 10/05/20 09:15 Urine Nitrite Neg (Negative) 10/05/20 09:15 Urine Bilirubin Neg (Negative) 10/05/20 09:15 Urine Urobilinogen < 2.0 mg/dL (<2.0) 10/05/20 09:15 Ur Leukocyte Esterase Neg (Negative) 10/05/20 09:15 Urine WBC (Auto) 13.0 /HPF (0.0-6.0) H 10/05/20 09:15 Urine RBC (Auto) 19.0 /HPF (0.0-6.0) 10/05/20 09:15 U Epithel Cells (Auto) 6.0 /HPF (0-13.0) 10/05/20 09:15 Urine Bacteria (Auto) 2+ /HPF (Negative) 10/05/20 09:15 Hyaline Casts 1 /LPF 10/05/20 09:15 Urine Mucus Few /HPF 10/05/20 09:15 Urine Yeast (Budding) 3+ /HPF 10/05/20 09:15 Urine Sperm 3+ /HPF ([employer]) 09/07/20 13:08 Urine Creatinine 182.4 mg/dL (0.1-20.0) H 09/08/20 Unknown Urine Sodium 40 mmol/L 09/08/20 Unknown Salicylates < 0.3 mg/dL (2.8-20.0) L 09/07/20 14:00 Acetaminophen 5.0 ug/mL (10.0-30.0) L 09/07/20 14:00 Valproic Acid 58.9 ug/mL (50-100) 10/04/20 04:55 Plasma/Serum Alcohol < 0.01 % (0-0.07) 09/07/20 14:00 Coronavirus (PCR) Negative (Negative) 10/03/20 10:01 Hepatitis A IgM Ab Non-reactive (NonReactive) 09/07/20 14:00 Hep Bs Antigen Non-reactive (Negative) 09/07/20 14:00 Hep B Core IgM Ab Non-reactive (NonReactive) 09/07/20 14:00 Hepatitis C Antibody Non-reactive (NonReactive) 09/07/20 14:00 HIV 1&2 Antibody Rapid Non react (Non React) 09/07/20 14:34 HIV P24 Antigen Non react (Non React) 09/07/20 14:34 Blood Type O POSITIVE 09/09/20 10:00 Antibody Screen Negative 09/07/20 14:00 Microbiology: Microbiology 10/05/20 09:15 Urine,Clean Catch Urine Culture - Final 10/04/20 10:32 Peripheral/Venous Blood Culture - Preliminary NO GROWTH AFTER 72 HOURS 10/04/20 10:32 Peripheral/Venous Blood Culture - Preliminary NO GROWTH AFTER 72 HOURS Mae/IV: Voiding Method Condom Catheter IV Catheter Type [Right Triple Lumen Cath Femoral] IV Catheter Type [Left Peripheral IV Antecubital] IV Catheter Type [Left Hand] Peripheral IV IV Catheter Type [Right Peripheral IV Antecubital] Active Medications - Current Medications Current Medications: Generic Name Dose Route Start Last Admin Trade Name Freq PRN Reason Stop Dose Admin Acetaminophen 650 mg 10/02/20 09:00 10/04/20 05:10 Acetaminophen 325 Mg/10.15 Ml Oral Liqd Unit Dose PO 650 mg Q4HR PRN Administration Non Cardiac Pain or Temp>100.5 Amiodarone HCl 200 mg 10/05/20 11:00 10/07/20 21:48 Amiodarone 200 Mg Tab PO 200 mg BID TAYLOR Administration Lipase/Protease/Amylase 1 each 09/09/20 09:40 Lipase 10,500/Protease 25,000/Amylase 43,750 (Units) Dr Armenta FEEDTUBE PRN PRN For Clogged Feeding Tube Hydralazine HCl 50 mg 09/23/20 14:00 10/08/20 05:43 Hydralazine 25 Mg Tab PO 50 mg Q8HR TAYLOR Administration Sodium Chloride 100 mls @ 999 mls/hr 09/09/20 13:36 Nacl 0.9% IV JAYJAY PRN Hypotension Cefepime HCl 2 gm in 100 mls @ 200 mls/hr 10/05/20 22:00 10/07/20 21:44 Cefepime/Ns 2 Gm/100 Ml IV 200 mls/hr Q24H TAYLOR Administration Protocol Insulin Glargine 30 units 10/07/20 10:00 10/07/20 10:00 Insulin Glargine 100 Units/Ml SUB-Q 30 units DAILY TYALOR Administration Insulin Human Lispro 0 unit 09/12/20 12:00 10/08/20 05:53 Insulin Lispro 100 Unit/Ml SUB-Q 4 unit Q6HR TAYLOR Administration Protocol Lansoprazole 30 mg 09/11/20 11:00 10/07/20 21:45 Lansoprazole 30 Mg Solutab FEEDTUBE 30 mg BID TAYLOR Administration Levetiracetam 1,500 mg 09/28/20 10:00 10/07/20 21:46 Levetiracetam 500 Mg/5 Ml Oral Liqd PO 1,500 mg BID TAYLOR Administration Multivitamins 5 ml 09/09/20 12:00 10/07/20 10:21 Multivitamins 5 Ml Oral Liquid PO 5 ml QDAY TAYLOR Administration Ondansetron HCl 4 mg 09/07/20 17:55 09/19/20 04:00 Ondansetron 4 Mg/2 Ml Inj IV 4 mg Q8H PRN Administration Nausea And Vomiting Senna/Docusate Sodium 2 tab 09/20/20 11:00 Sennosides/Docusate Sodium 8.6/50 Mg Tab PO BID PRN Laxative Effect Simple Syrup 15 ml 09/09/20 09:40 09/17/20 17:43 Simple Syrup 15 Ml FEEDTUBE 15 ml PRN PRN Administration Hypoglycemia Simple Syrup 30 ml 09/09/20 09:40 Simple Syrup 15 Ml FEEDTUBE PRN PRN Hypoglycemia Sodium Bicarbonate 325 mg 09/09/20 09:40 Sodium Bicarbonate 325 Mg Tab FEEDTUBE PRN PRN For Clogged Feeding Tube Sodium Chloride 10 ml 09/07/20 22:00 10/07/20 21:47 Sodium Chloride 0.9% 10 Ml Flush Syringe IV 10 ml BID TAYLOR Administration Sodium Chloride 10 ml 09/07/20 17:55 Sodium Chloride 0.9% 10 Ml Flush Syringe IV PRN PRN LINE FLUSH Valproic Acid 1,000 mg 09/28/20 10:00 10/07/20 21:46 Valproic Acid 250 Mg/5 Ml Oral Liqd FEEDTUBE 1,000 mg BID TAYLOR Administration Nutrition/Malnutrition Assess - Dietary Evaluation Nutrition/Malnutrition Findings: Nutrition Notes Start: 09/08/20 1 2:01 Freq: Status: Active Protocol: Document 10/06/20 10:48 [email or web address] (Rec: 10/06/20 11:09 [email or web address] [email or web address]) Co-Sign 10/06/20 10:48 MK Nutrition Notes Initial or Follow up Reassessment Current Diagnosis Acute Kidney Injury, Respiratory Failure Other Pertinent Diagnosis on HD, cardiac arrest, COVID ( +), metabolic encephalopathy, pneu Current Diet Nepro 1.8 at 45 mL/hr (goal rate) Labs/Tests BUN 55 Na 135 BG 304 Pertinent Medications Humalog 6 units Lantus 25 units Height 6 ft Weight 145.18 kg [place] Body Weight (kg) 80.90 BMI 43.4 Weight Status Morbidly Obese Subjective/Other Information F/U TF tolerance. Spoke with RN, Pt is tolerating TF at goal rate of 45ml/hr. Percent of energy/protein needs met: 100%/64% Burn Absent Trauma Absent GI Symptoms None Difficulty In Swallowing Food Allergy No Skin Integrity/Comment pressure ulcer to lips Current % PO Negligible Minimum of two criteria No Fluid Accumulation Mild (non-severe) #3 Nutrition Diagnosis Increased nutrient needs ( specify in comment below) Diagnosis Progress(for reassessment Continues documentation) #2 Nutrition Diagnosis Increased nutrient needs ( specify in comment below) As Evidenced by Signs and Symptoms Pt on HD and not meeting protein needs Diagnosis Progress(for reassessment Continues documentation) #1 Nutrition Diagnosis Inadequate oral intake Diagnosis Progress(for reassessment Continues documentation) Is patient on ventilator? No Is Patient Ambulatory and/or Out of Bed No REE-([facility]-confined to bed) 2740.164 Kcal/Kg value to use for calculation 13 Approximate Energy Requirements Using 1887 kcal/Kg Calculation Used for Recommendations Kcal/kg Additional Notes PRO needs: >136g (>1.2g/kg AdjBW 113.04kg) Fluid needs are 1000-1500ml Nutrition Intervention Change Diet Order: TF Nutrition Support: Nepro at 45ml/hr Flush 120ml q4h Kcal 1,944 Protein (gm) 87 Fluid (mL) 785 Goal #1 Meet kcal and protein needs as best as possible via TF Anticipated Discharge Needs: TF Follow-Up By: 10/10/20 Additional Comments F/U stable TF
[2020-10-08] MEDS: LANSOPRAZOLE 30 MG SOLUTAB FEEDTUBE SCH ×2 (10:43→22:59)
[2020-10-08] MEDS: VALPROIC ACID 250 MG/5 ML ORAL LIQD FEEDTUBE SCH ×2 (10:43→22:59)
[2020-10-08] MEDS: AMIODARONE 200 MG TAB PO SCH ×2 (10:43→22:59)
[2020-10-08] MEDS: levETIRAcetam 500 MG/5 ML ORAL LIQD PO SCH ×2 (10:43→22:59)
[2020-10-08] MEDS: INSULIN GLARGINE 100 UNITS/ML SUB-Q SCH (10:44)
[2020-10-08] MEDS: MULTIVITAMINS 5 ML ORAL LIQUID PO SCH (10:45)
--- NOTE | 2020-10-08 11:38 | Progress Note ---
Assessment and Plan 65 y/o male with out of hospital cardiac arrest now sedated on ativan for possible seizures. 10/08/20: No acute pulm issuse. Trach has been in over 2 weeks now, could consider downsizing but given his mental state is unchanged, no porter to do this as he is not an immediate candiate for decannulation. 10/05/20: Pulm status is unchanged. Wean Flow back down to 5. Will see PRN 10/04/20: Increase from 5 to 8 in flow. No documentation as to why. Will continue to monitor. If flow continues to increase, suggest repeat CXR. 10/03/20: Continue trach care. Stable pulm status. Will see PRN. 10/02/20: Will transfer out to floor. CM working on placement. 09/29/20: Please continue daily T-piece trials as tolerated over the weekend. Goals is to do 24 hours of T-piece. Once done stable for transfer out of the unit. Hold BP meds for now. MOnitor for fever cure or changes clinically other than change in blood pressure. Increased BID lantus to 20. May need more but can reassess tomorrow. My partner is covering this weekend. 09/28/20: T-piece again today. Will place official order to let patient stay on T-piece and to call if changes occur. HD MWF per renal. Poor prognosis for cognitive recovery. 09/27/20: T-piece trial again today. Will attempt to go 24 hours. Still needs HD per renal. This will be a barrier to discharge. CM knows and will discuss with administration. 09/26/20: Will do T-piece today. If tolerates the next 24 hours will move out of ICU. : PSV for the next 24 hours if tolerates. Restart feeds today at 10. Continue reglan. If tomorrow, same issues. Will change feeds, obtain GI consult. Continue antiepileptic therapy. 09/24/20: Continue Daily PSV, maybe ready for 24 hour trial. Antiepleptic therapy. Hold feeds today, suggest GI consult. Will discuss with Dietary on round tomorrow. 09/23/20: Daily PSV trials multiple times a day if needed. Antiepileptic therapy. Resume tube feeds today. 09/22/20: PSV trial today as tolerated and every day from this day forward. NO sedation. Continue antiepileptic therapy. HD per renal. Still having issues with feeds. Will contact to see if he has any food allergies. Prognosis still remains very poor. WIll start some promotility agents as well. 09/21/20: Trach and peg today. Continue with vent weaning. Hopeful we can wean him off the vent once trached. [facility] Prognosis re eliane very poor for recovery of functional state. 09/20/20: Placed consult to surgery now that COVID is negative. However, patient is morbidly obese and his surgery will likely be a complicated one especially with peg placement. Await surgery eval and recs. HD per renal. Continue daily PSV trials, mental status precludes extubation traditionally but maybe able to wean off vent with stable airway such as trach. [facility] has denied transfer and placement requests at this time based on CM notes. Prognosis is very poor, but after speaking with neurology and neurosurgery, patient wishes to continue aggressive measures. 09/19/20: Ordered repeat COVID as surgery will not do trach and peg until neg ative status. Continue supportive measures. 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 09/18/20: Unable to fit in MRI. Repeat CT showed improvement in edema but no clinical response is seen with this. Will continue Antiepileptic therapy. If wishes to proceed, will need trach and peg. Not sure if he would be candidate for PEG given his size but will ask surgery. Will need repeat COVID test prior to surgery. 09/15/20: Order MRI brain without contrast. Per surgery this will help to add more in regards to prognosis. Continue Valproic Acid and Keppra for seizure therapy. HD going now per renal. Overall prognosis remains guarded to poor. Please reach out to over the weekend to update her as I am not rounding this weekend, ,my partner will be covering. 09/14/20: Will load with valproic acid and then start to wean Diprovan. Spoke with today, very tearful on the phone. Explained to that Neurosurgery would come and eval tonight but not a candidate for the other therapies she asked about since his edema is related to anoxic injury. Very very poor prognosis. 09/13/20: Per current neuro available, the neurologist from yesterday will call today. EEG is nonspecific but given CT of head findings consistent with anoxic encephalopathy, brain injury. As stated in neuro note, overall prognosis is very poor. Will continue to wean down diprovan to see if patient's seizures have been controlled with current Keppra dosing. Will call once she has spoken to neuro to get her thoughts on the next steps. (trach and peg, vs hospice as well as code status). Very very poor prognosis. 09/12/20: Long discussion with this am. Given recent head CT results, prognosis for full functional recovery is very POOR and neurology agrees. They will see in consult today. I have spoken to about AND and she is going to discuss with the family. The neurologist has stated they will reach out to the today. I am going to attempt to wean the ativan off and then start to wean the diprovan as long as no seizure activity is seen. Patient is now bradycardic, likely secondary to neuro state. I hope that he is not about to herniate. Patient is also like in Neurogenic DI given large urine out put volume. Very very poor prognosis. Continue supportive measures. 09/11/20: Will increase Keppra to 1500 BID given patient size. Continue Diprovan drip. Getting EEG today. HD per renal. Needs neurology consult however if patient is in status, needs to be transferred to an institution that can provide continuous EEG monitoring. Overll prognosis is very guarded to poor. Have not spoken to yet today. 09/10/20: Loaded with keppra and will start on Keppra BID. Needs EEG on therapy as well as OFF. If patient is in status, needs transfer to a location with continuous EEG capabilities. FiO2 has been weaned back down and is now at 60%, sats in the high 90's. HD per renal. Coags improving. Overall prognosis is guarded to poor. Spoke with on phone yesterday. Consult neurology tomorrow as not available on the weekend. Suggest checking for antibodies as he may be a candidate for convalsescent plasma. Per the , he was diagnosed with COVID on and spent 6 days inpatient at the [facility]. Remains positive now with multisystem organ failure. Explained to that outcome may not be good but need more time to assess. 09/09/20: EEG ordered on yesterday but not done. If done not read. Continue diprovan for now until EEG can be done or interpreted. State Coags but given his oozing from his vascath, will give Vitamin K and FFP. Patient is covid positive so agree with steroids. Not a candidate for remdesivir. Need to check for antibodies, may be a candidate for convalescent plasma. HD per renal. Given improvement in pH will stop bicarb drip. Feed patient. 1. Stop sedation 2. EEG 3. Needs neuro consult. 4. Art line placement 5. Stat repeat of labs, if renal function is truly that bad, will need renal consult. 6. Follow up COVID testing 7. Likely needs echo 8. Will place on bicarb drip. CCT 31 minutes. Subjective Date of service: 10/08/20 Principal diagnosis: Abnormal LFTs, s/p cardiac arrest, acute kidney injury with ATN Interval history: No acute events. Still on TC and stable. Has a number 8 shiley in. Objective Vital Signs - 12hr 10/08/20 10/08/20 10/08/20 00:00 02:36 04:46 Temperature 98.4 F 98.6 F Pulse Rate 77 80 Respiratory 20 20 Rate Blood Pressure 124/62 O2 Sat by Pulse 98 98 Oximetry O2 Sat by Pulse 100 Oximetry [ Assessment] 10/08/20 10/08/20 05:43 08:49 Temperature 98.4 F Pulse Rate 77 Respiratory 18 Rate Blood Pressure 110/53 115/59 O2 Sat by Pulse 94 Oximetry O2 Sat by Pulse Oximetry [ Assessment] Constitutional: comatose, other (morbidly obese t piece sp trach) Eyes: non-icteric ENT: other (tpiece) Neck: supple Effort: normal Ascultation: Bilateral: diminished breath sounds Percussion: Bilateral: not dull Cardiovascular: other (bradycardic) Gastrointestinal: soft Neurologic: other CBC and BMP: 10/06/20 10:12 10/08/20 06:03 ABG, PT/INR, D-dimer: ABG ABG pH 7.468 (7.320-7.450) H 10/02/20 10:16 POC ABG pCO2 37.1 mmHg (32.0-48.0) 10/02/20 10:16 ABG pCO2 33.4 mm Hg 09/11/20 05:40 POC ABG pO2 72.9 mmHg (83-108) L 10/02/20 10:16 ABG pO2 112.1 mm Hg (80.0-90.0) H 09/11/20 05:40 POC ABG HCO3 26.3 10/02/20 10:16 ABG O2 Saturation 98.4 % (95.0-99.0) 09/11/20 05:40 PT/INR, D-dimer PT 16.1 Sec. (12.2-14.9) H 09/12/20 04:00 INR 1.31 (0.87-1.13) H 09/12/20 04:00 D-Dimer 8315.85 ng/mlDDU (0-234) H 09/07/20 14:00 Abnormal lab findings: Abnormal Labs 09/07/20 09/07/20 09/07/20 13:08 14:00 14:00 WBC 15.7 H RBC Hgb 10.2 L Hct 32.5 L MCHC 31 L RDW 17.5 H Lymph % (Auto) Yell % (Auto) Lymph # (Auto) Yell # (Auto) Seg Neutrophils % Seg Neuts % (Manual) 72.0 H Lymphocytes % (Manual) Monocytes % (Manual) 8.0 H Nucleated RBC % Seg Neutrophils # Seg Neutrophils # Man 11.3 H Lymphocytes # (Manual) Monocytes # (Manual) 1.3 H PT INR D-Dimer 8315.85 H ABG pH POC ABG pCO2 POC ABG pO2 ABG pO2 ABG HCO3 ABG Base Excess ABG Hemoglobin ABG Oxyhemoglobin ABG Sodium ABG Potassium ABG Chloride ABG Glucose Carboxyhemoglobin Sodium Potassium Chloride Carbon Dioxide BUN Creatinine Glucose POC Glucose Lactic Acid Calcium Phosphorus Ferritin Total Bilirubin Direct Bilirubin AST ALT Lactate Dehydrogenase Total Creatine Kinase Troponin T Total Protein Albumin Triglycerides Arterial Blood Glucose Arterial Blood Ionized Calcium Urine pH 8.0 H Urine WBC (Auto) Urine Creatinine Salicylates Acetaminophen Coronavirus (PCR) 09/07/20 09/07/20 09/07/20 14:00 14:00 14:00 WBC RBC Hgb Hct MCHC RDW Lymph % (Auto) Yell % (Auto) Lymph # (Auto) Yell # (Auto) Seg Neutrophils % Seg Neuts % (Manual) Lymphocytes % (Manual) Monocytes % (Manual) Nucleated RBC % Seg Neutrophils # Seg Neutrophils # Man Lymphocytes # (Manual) Monocytes # (Manual) PT INR D-Dimer ABG pH POC ABG pCO2 POC ABG pO2 ABG pO2 ABG HCO3 ABG Base Excess ABG Hemoglobin ABG Oxyhemoglobin ABG Sodium ABG Potassium ABG Chloride ABG Glucose Carboxyhemoglobin Sodium Potassium Chloride Carbon Dioxide BUN Creatinine Glucose POC Glucose Lactic Acid 4.30 H* Calcium Phosphorus Ferritin > 2000.0 H Total Bilirubin Direct Bilirubin AST ALT Lactate Dehydrogenase 882 H Total Creatine Kinase 477 H Troponin T 0.076 H Total Protein Albumin Triglycerides Arterial Blood Glucose Arterial Blood Ionized Calcium Urine pH Urine WBC (Auto) Urine Creatinine Salicylates Acetaminophen Coronavirus (PCR) 09/07/20 09/07/20 09/07/20 14:00 14:00 14:00 WBC RBC Hgb Hct MCHC RDW Lymph % (Auto) Yell % (Auto) Lymph # (Auto) Yell # (Auto) Seg Neutrophils % Seg Neuts % (Manual) Lymphocytes % (Manual) Monocytes % (Manual) Nucleated RBC % Seg Neutrophils # Seg Neutrophils # Man Lymphocytes # (Manual) Monocytes # (Manual) PT INR D-Dimer ABG pH POC ABG pCO2 POC ABG pO2 ABG pO2 ABG HCO3 ABG Base Excess ABG Hemoglobin ABG Oxyhemoglobin ABG Sodium ABG Potassium ABG Chloride ABG Glucose Carboxyhemoglobin Sodium Potassium Chloride Carbon Dioxide BUN Creatinine 1.8 H Glucose POC Glucose Lactic Acid Calcium Phosphorus Ferritin Total Bilirubin Direct Bilirubin AST 310 H ALT 339 H Lactate Dehydrogenase Total Creatine Kinase Troponin T Total Protein Albumin 3.6 L Triglycerides Arterial Blood Glucose Arterial Blood Ionized Calcium Urine pH Urine WBC (Auto) Urine Creatinine Salicylates < 0.3 L Acetaminophen 5.0 L Coronavirus (PCR) 09/07/20 09/08/20 09/08/20 14:26 04:00 04:17 WBC RBC Hgb Hct MCHC RDW Lymph % (Auto) Yell % (Auto) Lymph # (Auto) Yell # (Auto) Seg Neutrophils % Seg Neuts % (Manual) Lymphocytes % (Manual) Monocytes % (Manual) Nucleated RBC % Seg Neutrophils # Seg Neutrophils # Man Lymphocytes # (Manual) Monocytes # (Manual) PT INR D-Dimer ABG pH 7.037 L 7.095 L POC ABG pCO2 92.4 H 68.0 H POC ABG pO2 130.8 H 43.5 L ABG pO2 ABG HCO3 ABG Base Excess ABG Hemoglobin 11.3 L 10.6 L ABG Oxyhemoglobin 70.8 L ABG Sodium ABG Potassium 7.0 H ABG Chloride 108.0 H ABG Glucose Carboxyhemoglobin 0.3 L Sodium Potassium 8.4 H* D Chloride Carbon Dioxide 17 L D BUN 38 H Creatinine 3.9 H D Glucose POC Glucose Lactic Acid Calcium 7.7 L D Phosphorus Ferritin Total Bilirubin Direct Bilirubin AST ALT Lactate Dehydrogenase Total Creatine Kinase Troponin T Total Protein Albumin Triglycerides Arterial Blood Glucose Arterial Blood Ionized Calcium 4.5 L Urine pH Urine WBC (Auto) Urine Creatinine Salicylates Acetaminophen Coronavirus (PCR) 09/08/20 09/08/20 09/08/20 05:00 05:25 12:02 WBC RBC Hgb Hct MCHC RDW Lymph % (Auto) Yell % (Auto) Lymph # (Auto) Yell # (Auto) Seg Neutrophils % Seg Neuts % (Manual) Lymphocytes % (Manual) Monocytes % (Manual) Nucleated RBC % Seg Neutrophils # Seg Neutrophils # Man Lymphocytes # (Manual) Monocytes # (Manual) PT INR D-Dimer ABG pH 7.088 L POC ABG pCO2 69.1 H POC ABG pO2 35.2 L ABG pO2 ABG HCO3 ABG Base Excess ABG Hemoglobin 10.9 L ABG Oxyhemoglobin 57.1 L ABG Sodium ABG Potassium 7.0 H ABG Chloride 108.0 H ABG Glucose Carboxyhemoglobin 0.4 L Sodium Potassium 8.1 H* Chloride Carbon Dioxide 17 L BUN 38 H Creatinine 3.7 H Glucose POC Glucose Lactic Acid Calcium 8.0 L Phosphorus 8.00 H Ferritin Total Bilirubin Direct Bilirubin 0.5 H AST 3696 H ALT 3331 H Lactate Dehydrogenase Total Creatine Kinase Troponin T Total Protein Albumin 3.5 L Triglycerides Arterial Blood Glucose Arterial Blood Ionized Calcium 4.4 L Urine pH Urine WBC (Auto) Urine Creatinine Salicylates Acetaminophen Coronavirus (PCR) 09/08/20 09/08/20 09/08/20 16:31 22:36 Unknown WBC RBC Hgb Hct MCHC RDW Lymph % (Auto) Yell % (Auto) Lymph # (Auto) Yell # (Auto) Seg Neutrophils % Seg Neuts % (Manual) Lymphocytes % (Manual) Monocytes % (Manual) Nucleated RBC % Seg Neutrophils # Seg Neutrophils # Man Lymphocytes # (Manual) Monocytes # (Manual) PT INR D-Dimer ABG pH POC ABG pCO2 POC ABG pO2 ABG pO2 ABG HCO3 ABG Base Excess ABG Hemoglobin ABG Oxyhemoglobin ABG Sodium ABG Potassium ABG Chloride ABG Glucose Carboxyhemoglobin Sodium Potassium 5.3 H D Chloride Carbon Dioxide BUN Creatinine Glucose POC Glucose 158 H Lactic Acid Calcium Phosphorus Ferritin Total Bilirubin Direct Bilirubin AST ALT Lactate Dehydrogenase Total Creatine Kinase Troponin T Total Protein Albumin Triglycerides Arterial Blood Glucose Arterial Blood Ionized Calcium Urine pH Urine WBC (Auto) Urine Creatinine Salicylates Acetaminophen Coronavirus (PCR) Positive A 09/08/20 09/08/20 09/08/20 Unknown Unknown Unknown WBC 18.4 H RBC Hgb 10.1 L Hct 32.0 L MCHC RDW 18.2 H Lymph % (Auto) Yell % (Auto) Lymph # (Auto) Yell # (Auto) Seg Neutrophils % Seg Neuts % (Manual) 81.0 H Lymphocytes % (Manual) 2.0 L Monocytes % (Manual) Nucleated RBC % 1.0 H Seg Neutrophils # Seg Neutrophils # Man 14.9 H Lymphocytes # (Manual) 0.4 L Monocytes # (Manual) 1.1 H PT 21.2 H INR 1.83 H D-Dimer ABG pH POC ABG pCO2 POC ABG pO2 ABG pO2 ABG HCO3 ABG Base Excess ABG Hemoglobin ABG Oxyhemoglobin ABG Sodium ABG Potassium ABG Chloride ABG Glucose Carboxyhemoglobin Sodium Potassium Chloride Carbon Dioxide BUN Creatinine Glucose POC Glucose Lactic Acid Calcium Phosphorus Ferritin Total Bilirubin Direct Bilirubin AST ALT Lactate Dehydrogenase Total Creatine Kinase Troponin T Total Protein Albumin Triglycerides Arterial Blood Glucose Arterial Blood Ionized Calcium Urine pH Urine WBC (Auto) Urine Creatinine 182.4 H Salicylates Acetaminophen Coronavirus (PCR) 09/09/20 09/09/20 09/09/20 03:14 04:20 04:20 WBC 16.3 H RBC 3.12 L Hgb 8.6 L Hct 26.8 L MCHC RDW 18.2 H Lymph % (Auto) 6.3 L Yell % (Auto) 8.8 H Lymph # (Auto) 1.0 L Yell # (Auto) 1.4 H Seg Neutrophils % 84.5 H Seg Neuts % (Manual) Lymphocytes % (Manual) Monocytes % (Manual) Nucleated RBC % Seg Neutrophils # 13.7 H Seg Neutrophils # Man Lymphocytes # (Manual) Monocytes # (Manual) PT INR D-Dimer ABG pH POC ABG pCO2 POC ABG pO2 148.5 H ABG pO2 ABG HCO3 ABG Base Excess ABG Hemoglobin 9.4 L ABG Oxyhemoglobin 98.8 H ABG Sodium 134.8 L ABG Potassium 5.0 H ABG Chloride ABG Glucose 222 H Carboxyhemoglobin 0.1 L Sodium Potassium 5.2 H Chloride Carbon Dioxide BUN 47 H Creatinine 4.3 H Glucose 211 H POC Glucose Lactic Acid Calcium 7.4 L Phosphorus Ferritin Total Bilirubin Direct Bil[place] AST 49058 H ALT 6206 H Lactate Dehydrogenase Total Creatine Kinase Troponin T Total Protein 5.6 L Albumin 3.0 L Triglycerides Arterial Blood Glucose 222 H Arterial Blood Ionized Calcium 3.8 L Urine pH Urine WBC (Auto) Urine Creatinine Salicylates Acetaminophen Coronavirus (PCR) 09/09/20 09/09/20 09/09/20 10:00 12:23 18:22 WBC RBC Hgb Hct MCHC RDW Lymph % (Auto) Yell % (Auto) Lymph # (Auto) Yell # (Auto) Seg Neutrophils % Seg Neuts % (Manual) Lymphocytes % (Manual) Monocytes % (Manual) Nucleated RBC % Seg Neutrophils # Seg Neutrophils # Man Lymphocytes # (Manual) Monocytes # (Manual) PT 21.7 H INR 1.90 H D-Dimer ABG pH POC ABG pCO2 POC ABG pO2 ABG pO2 ABG HCO3 ABG Base Excess ABG Hemoglobin ABG Oxyhemoglobin ABG Sodium ABG Potassium ABG Chloride ABG Glucose Carboxyhemoglobin Sodium Potassium Chloride Carbon Dioxide BUN Creatinine Glucose POC Glucose 216 H 211 H Lactic Acid Calcium Phosphorus Ferritin Total Bilirubin Direct Bilirubin AST ALT Lactate Dehydrogenase Total Creatine Kinase Troponin T Total Protein Albumin Triglycerides Arterial Blood Glucose Arterial Blood Ionized Calcium Urine pH Urine WBC (Auto) Urine Creatinine Salicylates Acetaminophen Coronavirus (PCR) 09/10/20 09/10/20 09/10/20 04:00 04:05 04:05 WBC 15.0 H RBC 3.06 L Hgb 8.6 L Hct 25.8 L MCHC RDW 18.0 H Lymph % (Auto) Yell % (Auto) Lymph # (Auto) Yell # (Auto) Seg Neutrophils % Seg Neuts % (Manual) 86.0 H Lymphocytes % (Manual) 6.0 L Monocytes % (Manual) 8.0 H Nucleated RBC % Seg Neutrophils # Seg Neutrophils # Man 12.9 H Lymphocytes # (Manual) 0.9 L Monocytes # (Manual) 1.2 H PT 18.4 H INR 1.54 H D-Dimer ABG pH POC ABG pCO2 POC ABG pO2 ABG pO2 ABG HCO3 ABG Base Excess ABG Hemoglobin ABG Oxyhemoglobin ABG Sodium ABG Potassium ABG Chloride ABG Glucose Carboxyhemoglobin Sodium 134 L Potassium Chloride 93.7 L Carbon Dioxide BUN 46 H Creatinine 3.6 H Glucose 275 H POC Glucose Lactic Acid Calcium 7.7 L Phosphorus Ferritin Total Bilirubin 1.30 H Direct Bilirubin AST 5899 H ALT 6440 H Lactate Dehydrogenase Total Creatine Kinase Troponin T Total Protein 5.9 L Albumin 3.3 L Triglycerides Arterial Blood Glucose Arterial Blood Ionized Calcium Urine pH Urine WBC (Auto) Urine Creatinine Salicylates Acetaminophen Coronavirus (PCR) 09/10/20 09/10/20 09/10/20 04:35 12:06 17:42 WBC RBC Hgb Hct MCHC RDW Lymph % (Auto) Yell % (Auto) Lymph # (Auto) Yell # (Auto) Seg Neutrophils % Seg Neuts % (Manual) Lymphocytes % (Manual) Monocytes % (Manual) Nucleated RBC % Seg Neutrophils # Seg Neutrophils # Man Lymphocytes # (Manual) Monocytes # (Manual) PT INR D-Dimer ABG pH 7.464 H POC ABG pCO2 POC ABG pO2 ABG pO2 ABG HCO3 ABG Base Excess ABG Hemoglobin 9.9 L ABG Oxyhemoglobin ABG Sodium 131.6 L ABG Potassium ABG Chloride 97.0 L ABG Glucose 281 H Carboxyhemoglobin 0.1 L Sodium Potassium Chloride Carbon Dioxide BUN Creatinine Glucose POC Glucose 298 H 340 H Lactic Acid Calcium Phosphorus Ferritin Total Bilirubin Direct Bilirubin AST ALT Lactate Dehydrogenase Total Creatine Kinase Troponin T Total Protein Albumin Triglycerides Arterial Blood Glucose 281 H Arterial Blood Ionized Calcium 3.9 L Urine pH Urine WBC (Auto) Urine Creatinine Salicylates Acetaminophen Coronavirus (PCR) 09/10/20 09/11/20 09/11/20 23:07 04:44 05:17 WBC RBC Hgb Hct MCHC RDW Lymph % (Auto) Yell % (Auto) Lymph # (Auto) Yell # (Auto) Seg Neutrophils % Seg Neuts % (Manual) Lymphocytes % (Manual) Monocytes % (Manual) Nucleated RBC % Seg Neutrophils # Seg Neutrophils # Man Lymphocytes # (Manual) Monocytes # (Manual) PT 16.9 H INR 1.39 H D-Dimer ABG pH POC ABG pCO2 POC ABG pO2 ABG pO2 ABG HCO3 ABG Base Excess ABG Hemoglobin ABG Oxyhemoglobin ABG Sodium ABG Potassium ABG Chloride ABG Glucose Carboxyhemoglobin Sodium Potassium Chloride Carbon Dioxide BUN Creatinine Glucose POC Glucose 367 H 416 H Lactic Acid Calcium Phosphorus Ferritin Total Bilirubin Direct Bilirubin AST ALT Lactate Dehydrogenase Total Creatine Kinase Troponin T Total Protein Albumin Triglycerides Arterial Blood Glucose Arterial Blood Ionized Calcium Urine pH Urine WBC (Auto) Urine Creatinine Salicylates Acetaminophen Coronavirus (PCR) 09/11/20 09/11/20 09/11/20 05:40 12:01 17:50 WBC RBC Hgb Hct MCHC RDW Lymph % (Auto) Yell % (Auto) Lymph # (Auto) Yell # (Auto) Seg Neutrophils % Seg Neuts % (Manual) Lymphocytes % (Manual) Monocytes % (Manual) Nucleated RBC % Seg Neutrophils # Seg Neutrophils # Man Lymphocytes # (Manual) Monocytes # (Manual) PT INR D-Dimer ABG pH 7.543 H POC ABG pCO2 POC ABG pO2 ABG pO2 112.1 H ABG HCO3 28.1 H ABG Base Excess 5.4 H ABG Hemoglobin 8.4 L ABG Oxyhemoglobin ABG Sodium ABG Potassium ABG Chloride ABG Glucose Carboxyhemoglobin Sodium Potassium Chloride Carbon Dioxide BUN Creatinine Glucose POC Glucose 418 H 404 H Lactic Acid Calcium Phosphorus Ferritin Total Bilirubin Direct Bilirubin AST ALT Lactate Dehydrogenase Total Creatine Kinase Troponin T Total Protein Albumin Triglycerides Arterial Blood Glucose Arterial Blood Ionized Calcium Urine pH Urine WBC (Auto) Urine Creatinine Salicylates Acetaminophen Coronavirus (PCR) 09/11/20 09/11/20 09/12/20 23:10 23:43 03:15 WBC RBC Hgb Hct MCHC RDW Lymph % (Auto) Yell % (Auto) Lymph # (Auto) Yell # (Auto) Seg Neutrophils % Seg Neuts % (Manual) Lymphocytes % (Manual) Monocytes % (Manual) Nucleated RBC % Seg Neutrophils # Seg Neutrophils # Man Lymphocytes # (Manual) Monocytes # (Manual) PT INR D-Dimer ABG pH POC ABG pCO2 POC ABG pO2 ABG pO2 ABG HCO3 ABG Base Excess ABG Hemoglobin ABG Oxyhemoglobin ABG Sodium ABG Potassium ABG Chloride ABG Glucose Carboxyhemoglobin Sodium 135 L Potassium Chloride 92.3 L Carbon Dioxide BUN 62 H Creatinine 3.7 H Glucose 406 H POC Glucose 372 H 359 H Lactic Acid Calcium Phosphorus Ferritin Total Bilirubin Direct Bilirubin AST 687 H ALT 3701 H Lactate Dehydrogenase Total Creatine Kinase Troponin T Total Protein 5.8 L Albumin 3.1 L Triglycerides Arterial Blood Glucose Arterial Blood Ionized Calcium Urine pH Urine WBC (Auto) Urine Creatinine Salicylates Acetaminophen Coronavirus (PCR) 09/12/20 09/12/20 09/12/20 03:18 04:00 04:00 WBC 13.7 H RBC 3.30 L Hgb 9.3 L Hct 27.6 L MCHC RDW 17.5 H Lymph % (Auto) Yell % (Auto) Lymph # (Auto) Yell # (Auto) Seg Neutrophils % Seg Neuts % (Manual) 76.0 H Lymphocytes % (Manual) 11.0 L Monocytes % (Manual) 13.0 H Nucleated RBC % Seg Neutrophils # Seg Neutrophils # Man 10.4 H Lymphocytes # (Manual) Monocytes # (Manual) 1.8 H PT 16.1 H INR 1.31 H D-Dimer ABG pH 7.558 H POC ABG pCO2 POC ABG pO2 74.7 L ABG pO2 ABG HCO3 ABG Base Excess ABG Hemoglobin 9.7 L ABG Oxyhemoglobin ABG Sodium 132.4 L ABG Potassium ABG Chloride 95.0 L ABG Glucose 437 H Carboxyhemoglobin Sodium Potassium Chloride Carbon Dioxide BUN Creatinine Glucose POC Glucose Lactic Acid Calcium Phosphorus Ferritin Total Bilirubin Direct Bilirubin AST ALT Lactate Dehydrogenase Total Creatine Kinase Troponin T Total Protein Albumin Triglycerides Arterial Blood Glucose 437 H Arterial Blood Ionized Calcium 4.3 L Urine pH Urine WBC (Auto) Urine Creatinine Salicylates Acetaminophen Coronavirus (PCR) 09/12/20 09/12/20 09/12/20 04:21 05:20 06:37 WBC RBC Hgb Hct MCHC RDW Lymph % (Auto) Yell % (Auto) Lymph # (Auto) Yell # (Auto) Seg Neutrophils % Seg Neuts % (Manual) Lymphocytes % (Manual) Monocytes % (Manual) Nucleated RBC % Seg Neutrophils # Seg Neutrophils # Man Lymphocytes # (Manual) Monocytes # (Manual) PT INR D-Dimer ABG pH POC ABG pCO2 POC ABG pO2 ABG pO2 ABG HCO3 ABG Base Excess ABG Hemoglobin ABG Oxyhemoglobin ABG Sodium ABG Potassium ABG Chloride ABG Glucose Carboxyhemoglobin Sodium Potassium Chloride Carbon Dioxide BUN Creatinine Glucose POC Glucose 417 H 397 H 370 H Lactic Acid Calcium Phosphorus Ferritin Total Bilirubin Direct Bilirubin AST ALT Lactate Dehydrogenase Total Creatine Kinase Troponin T Total Protein Albumin Triglycerides Arterial Blood Glucose Arterial Blood Ionized Calcium Urine pH Urine WBC (Auto) Urine Creatinine Salicylates Acetaminophen Coronavirus (PCR) 09/12/20 09/12/20 09/12/20 11:56 17:14 21:52 WBC RBC Hgb Hct MCHC RDW Lymph % (Auto) Yell % (Auto) Lymph # (Auto) Yell # (Auto) Seg Neutrophils % Seg Neuts % (Manual) Lymphocytes % (Manual) Monocytes % (Manual) Nucleated RBC % Seg Neutrophils # Seg Neutrophils # Man Lymphocytes # (Manual) Monocytes # (Manual) PT INR D-Dimer ABG pH POC ABG pCO2 POC ABG pO2 ABG pO2 ABG HCO3 ABG Base Excess ABG Hemoglobin ABG Oxyhemoglobin ABG Sodium ABG Potassium ABG Chloride ABG Glucose Carboxyhemoglobin Sodium Potassium Chloride Carbon Dioxide BUN Creatinine Glucose POC Glucose 341 H 325 H 285 H Lactic Acid Calcium Phosphorus Ferritin Total Bilirubin Direct Bilirubin AST ALT Lactate Dehydrogenase Total Creatine Kinase Troponin T Total Protein Albumin Triglycerides Arterial Blood Glucose Arterial Blood Ionized Calcium Urine pH Urine WBC (Auto) Urine Creatinine Salicylates Acetaminophen Coronavirus (PCR) 09/12/20 09/12/20 09/12/20 23:39 Unknown Unknown WBC RBC Hgb Hct MCHC RDW Lymph % (Auto) Yell % (Auto) Lymph # (Auto) Yell # (Auto) Seg Neutrophils % Seg Neuts % (Manual) Lymphocytes % (Manual) Monocytes % (Manual) Nucleated RBC % Seg Neutrophils # Seg Neutrophils # Man Lymphocytes # (Manual) Monocytes # (Manual) PT INR D-Dimer ABG pH POC ABG pCO2 POC ABG pO2 ABG pO2 ABG HCO3 ABG Base Excess ABG Hemoglobin ABG Oxyhemoglobin ABG Sodium ABG Potassium ABG Chloride ABG Glucose Carboxyhemoglobin Sodium 135 L Potassium Chloride 92.2 L Carbon Dioxide BUN 65 H Creatinine 3.5 H Glucose 418 H POC Glucose 338 H Lactic Acid Calcium Phosphorus Ferritin Total Bilirubin Direct Bilirubin AST 553 H ALT 3453 H Lactate Dehydrogenase Total Creatine Kinase Troponin T Total Protein 5.9 L Albumin 3.0 L Triglycerides 220 H Arterial Blood Glucose Arterial Blood Ionized Calcium Urine pH Urine WBC (Auto) Urine Creatinine Salicylates Acetaminophen Coronavirus (PCR) 09/13/20 09/13/20 09/13/20 04:47 05:24 10:50 WBC RBC Hgb Hct MCHC RDW Lymph % (Auto) Yell % (Auto) Lymph # (Auto) Yell # (Auto) Seg Neutrophils % Seg Neuts % (Manual) Lymphocytes % (Manual) Monocytes % (Manual) Nucleated RBC % Seg Neutrophils # Seg Neutrophils # Man Lymphocytes # (Manual) Monocytes # (Manual) PT INR D-Dimer ABG pH 7.571 H POC ABG pCO2 POC ABG pO2 69.0 L ABG pO2 ABG HCO3 ABG Base Excess ABG Hemoglobin 10.1 L ABG Oxyhemoglobin 93.2 L ABG Sodium 134.0 L ABG Potassium ABG Chloride ABG Glucose 365 H Carboxyhemoglobin 0.4 L Sodium Potassium Chloride 96.6 L Carbon Dioxide 32 H BUN 76 H Creatinine 3.1 H Glucose 395 H POC Glucose 329 H Lactic Acid Calcium Phosphorus Ferritin Total Bilirubin Direct Bilirubin AST ALT Lactate Dehydrogenase Total Creatine Kinase Troponin T Total Protein Albumin Triglycerides Arterial Blood Glucose 365 H Arterial Blood Ionized Calcium Urine pH Urine WBC (Auto) Urine Creatinine Salicylates Acetaminophen Coronavirus (PCR) 09/13/20 09/13/20 09/13/20 11:39 17:48 23:35 WBC RBC Hgb Hct MCHC RDW Lymph % (Auto) Yell % (Auto) Lymph # (Auto) Yell # (Auto) Seg Neutrophils % Seg Neuts % (Manual) Lymphocytes % (Manual) Monocytes % (Manual) Nucleated RBC % Seg Neutrophils # Seg Neutrophils # Man Lymphocytes # (Manual) Monocytes # (Manual) PT INR D-Dimer ABG pH POC ABG pCO2 POC ABG pO2 ABG pO2 ABG HCO3 ABG Base Excess ABG Hemoglobin ABG Oxyhemoglobin ABG Sodium ABG Potassium ABG Chloride ABG Glucose Carboxyhemoglobin Sodium Potassium Chloride Carbon Dioxide BUN Creatinine Glucose POC Glucose 344 H 286 H 223 H Lactic Acid Calcium Phosphorus Ferritin Total Bilirubin Direct Bilirubin AST ALT Lactate Dehydrogenase Total Creatine Kinase Troponin T Total Protein Albumin Triglycerides Arterial Blood Glucose Arterial Blood Ionized Calcium Urine pH Urine WBC (Auto) Urine Creatinine Salicylates Acetaminophen Coronavirus (PCR) 09/14/20 09/14/20 09/14/20 03:54 05:34 10:27 WBC RBC Hgb Hct MCHC RDW Lymph % (Auto) Yell % (Auto) Lymph # (Auto) Yell # (Auto) Seg Neutrophils % Seg Neuts % (Manual) Lymphocytes % (Manual) Monocytes % (Manual) Nucleated RBC % Seg Neutrophils # Seg Neutrophils # Man Lymphocytes # (Manual) Monocytes # (Manual) PT INR D-Dimer ABG pH POC ABG pCO2 POC ABG pO2 71.1 L ABG pO2 ABG HCO3 ABG Base Excess ABG Hemoglobin 10.3 L ABG Oxyhemoglobin ABG Sodium 135.2 L ABG Potassium ABG Chloride ABG Glucose 281 H Carboxyhemoglobin Sodium Potassium Chloride 96.6 L Carbon Dioxide BUN 100 H Creatinine 3.9 H Glucose 286 H POC Glucose 252 H Lactic Acid Calcium Phosphorus Ferritin Total Bilirubin Direct Bilirubin AST 145 H ALT 1400 H Lactate Dehydrogenase Total Creatine Kinase Troponin T Total Protein 5.6 L Albumin 2.9 L Triglycerides Arterial Blood Glucose 281 H Arterial Blood Ionized Calcium Urine pH Urine WBC (Auto) Urine Creatinine Salicylates Acetaminophen Coronavirus (PCR) 09/14/20 09/14/20 09/14/20 11:38 17:52 23:07 WBC RBC Hgb Hct MCHC RDW Lymph % (Auto) Yell % (Auto) Lymph # (Auto) Yell # (Auto) Seg Neutrophils % Seg Neuts % (Manual) Lymphocytes % (Manual) Monocytes % (Manual) Nucleated RBC % Seg Neutrophils # Seg Neutrophils # Man Lymphocytes # (Manual) Monocytes # (Manual) PT INR D-Dimer ABG pH POC ABG pCO2 POC ABG pO2 ABG pO2 ABG HCO3 ABG Base Excess ABG Hemoglobin ABG Oxyhemoglobin ABG Sodium ABG Potassium ABG Chloride ABG Glucose Carboxyhemoglobin Sodium Potassium Chloride Carbon Dioxide BUN Creatinine Glucose POC Glucose 247 H 247 H 256 H Lactic Acid Calcium Phosphorus Ferritin Total Bilirubin Direct Bilirubin AST ALT Lactate Dehydrogenase Total Creatine Kinase Troponin T Total Protein Albumin Triglycerides Arterial Blood Glucose Arterial Blood Ionized Calcium Urine pH Urine WBC (Auto) Urine Creatinine Salicylates Acetaminophen Coronavirus (PCR) 09/15/20 09/15/20 09/15/20 04:54 11:24 17:48 WBC RBC Hgb Hct MCHC RDW Lymph % (Auto) Yell % (Auto) Lymph # (Auto) Yell # (Auto) Seg Neutrophils % Seg Neuts % (Manual) Lymphocytes % (Manual) Monocytes % (Manual) Nucleated RBC % Seg Neutrophils # Seg Neutrophils # Man Lymphocytes # (Manual) Monocytes # (Manual) PT INR D-Dimer ABG pH POC ABG pCO2 POC ABG pO2 ABG pO2 ABG HCO3 ABG Base Excess ABG Hemoglobin ABG Oxyhemoglobin ABG Sodium ABG Potassium ABG Chloride ABG Glucose Carboxyhemoglobin Sodium Potassium Chloride Carbon Dioxide BUN Creatinine Glucose POC Glucose 271 H 228 H 254 H Lactic Acid Calcium Phosphorus Ferritin Total Bilirubin Direct Bilirubin AST ALT Lactate Dehydrogenase Total Creatine Kinase Troponin T Total Protein Albumin Triglycerides Arterial Blood Glucose Arterial Blood Ionized Calcium Urine pH Urine WBC (Auto) Urine Creatinine Salicylates Acetaminophen Coronavirus (PCR) 09/15/20 09/15/20 09/15/20 19:20 19:20 23:13 WBC 27.3 H RBC 3.16 L Hgb 8.8 L Hct 27.0 L MCHC RDW 19.7 H Lymph % (Auto) Yell % (Auto) Lymph # (Auto) Yell # (Auto) Seg Neutrophils % Seg Neuts % (Manual) 81.0 H Lymphocytes % (Manual) 9.0 L Monocytes % (Manual) 10.0 H Nucleated RBC % Seg Neutrophils # Seg Neutrophils # Man 22.1 H Lymphocytes # (Manual) Monocytes # (Manual) 2.7 H PT INR D-Dimer ABG pH POC ABG pCO2 POC ABG pO2 ABG pO2 ABG HCO3 ABG Base Excess ABG Hemoglobin ABG Oxyhemoglobin ABG Sodium ABG Potassium ABG Chloride ABG Glucose Carboxyhemoglobin Sodium Potassium Chloride Carbon Dioxide BUN 68 H Creatinine 2.8 H Glucose 288 H POC Glucose 259 H Lactic Acid Calcium Phosphorus Ferritin Total Bilirubin Direct Bilirubin AST ALT Lactate Dehydrogenase Total Creatine Kinase Troponin T Total Protein Albumin Triglycerides Arterial Blood Glucose Arterial Blood Ionized Calcium Urine pH Urine WBC (Auto) Urine Creatinine Salicylates Acetaminophen Coronavirus (PCR) 09/16/20 09/16/20 09/16/20 05:27 09:40 11:48 WBC RBC Hgb Hct MCHC RDW Lymph % (Auto) Yell % (Auto) Lymph # (Auto) Yell # (Auto) Seg Neutrophils % Seg Neuts % (Manual) Lymphocytes % (Manual) Monocytes % (Manual) Nucleated RBC % Seg Neutrophils # Seg Neutrophils # Man Lymphocytes # (Manual) Monocytes # (Manual) PT INR D-Dimer ABG pH POC ABG pCO2 POC ABG pO2 ABG pO2 ABG HCO3 ABG Base Excess ABG Hemoglobin ABG Oxyhemoglobin ABG Sodium ABG Potassium ABG Chloride ABG Glucose Carboxyhemoglobin Sodium Potassium Chloride Carbon Dioxide 31 H BUN 77 H Creatinine 2.9 H Glucose 250 H POC Glucose 275 H 234 H Lactic Acid Calcium Phosphorus Ferritin Total Bilirubin Direct Bilirubin AST ALT Lactate Dehydrogenase Total Creatine Kinase Troponin T Total Protein Albumin Triglycerides Arterial Blood Glucose Arterial Blood Ionized Calcium Urine pH Urine WBC (Auto) Urine Creatinine Salicylates Acetaminophen Coronavirus (PCR) 09/16/20 09/16/20 09/17/20 17:40 23:23 00:01 WBC RBC Hgb Hct MCHC RDW Lymph % (Auto) Yell % (Auto) Lymph # (Auto) Yell # (Auto) Seg Neutrophils % Seg Neuts % (Manual) Lymphocytes % (Manual) Monocytes % (Manual) Nucleated RBC % Seg Neutrophils # Seg Neutrophils # Man Lymphocytes # (Manual) Monocytes # (Manual) PT INR D-Dimer ABG pH POC ABG pCO2 POC ABG pO2 ABG pO2 ABG HCO3 ABG Base Excess ABG Hemoglobin ABG Oxyhemoglobin ABG Sodium ABG Potassium ABG Chloride ABG Glucose Carboxyhemoglobin Sodium Potassium Chloride Carbon Dioxide BUN Creatinine Glucose POC Glucose 172 H 161 H Lactic Acid 2.10 H* Calcium Phosphorus Ferritin Total Bilirubin Direct Bilirubin AST ALT Lactate Dehydrogenase Total Creatine Kinase Troponin T Total Protein Albumin Triglycerides Arterial Blood Glucose Arterial Blood Ionized Calcium Urine pH Urine WBC (Auto) Urine Creatinine Salicylates Acetaminophen Coronavirus (PCR) 09/17/20 09/17/20 09/17/20 04:00 04:00 05:09 WBC 19.5 H RBC 3.03 L Hgb 8.6 L Hct 26.3 L MCHC RDW 19.4 H Lymph % (Auto) 8.7 L Yell % (Auto) 13.7 H Lymph # (Auto) Yell # (Auto) 2.7 H Seg Neutrophils % 76.9 H Seg Neuts % (Manual) Lymphocytes % (Manual) Monocytes % (Manual) Nucleated RBC % Seg Neutrophils # 15.0 H Seg Neutrophils # Man Lymphocytes # (Manual) Monocytes # (Manual) PT INR D-Dimer ABG pH POC ABG pCO2 POC ABG pO2 ABG pO2 ABG HCO3 ABG Base Excess ABG Hemoglobin ABG Oxyhemoglobin ABG Sodium ABG Potassium ABG Chloride ABG Glucose Carboxyhemoglobin Sodium 146 H Potassium 3.1 L Chloride Carbon Dioxide BUN 79 H Creatinine 2.6 H Glucose 122 H POC Glucose 116 H Lactic Acid Calcium Phosphorus Ferritin Total Bilirubin Direct Bilirubin AST 64 H ALT 516 H Lactate Dehydrogenase Total Creatine Kinase Troponin T Total Protein 5.7 L Albumin 2.8 L Triglycerides Arterial Blood Glucose Arterial Blood Ionized Calcium Urine pH Urine WBC (Auto) Urine Creatinine Salicylates Acetaminophen Coronavirus (PCR) 09/17/20 09/17/20 09/18/20 13:52 17:38 05:16 WBC RBC Hgb Hct MCHC RDW Lymph % (Auto) Yell % (Auto) Lymph # (Auto) Yell # (Auto) Seg Neutrophils % Seg Neuts % (Manual) Lymphocytes % (Manual) Monocytes % (Manual) Nucleated RBC % Seg Neutrophils # Seg Neutrophils # Man Lymphocytes # (Manual) Monocytes # (Manual) PT INR D-Dimer ABG pH POC ABG pCO2 POC ABG pO2 ABG pO2 ABG HCO3 ABG Base Excess ABG Hemoglobin ABG Oxyhemoglobin ABG Sodium ABG Potassium ABG Chloride ABG Glucose Carboxyhemoglobin Sodium Potassium Chloride Carbon Dioxide BUN Creatinine Glucose POC Glucose 68 L 126 H Lactic Acid 2.90 H* Calcium Phosphorus Ferritin Total Bilirubin Direct Bilirubin AST ALT Lactate Dehydrogenase Total Creatine Kinase Troponin T Total Protein Albumin Triglycerides Arterial Blood Glucose Arterial Blood Ionized Calcium Urine pH Urine WBC (Auto) Urine Creatinine Salicylates Acetaminophen Coronavirus (PCR) 09/18/20 09/18/20 09/18/20 05:30 05:30 11:42 WBC 18.2 H RBC 3.18 L Hgb 9.0 L Hct 27.2 L MCHC RDW 18.8 H Lymph % (Auto) Yell % (Auto) Lymph # (Auto) Yell # (Auto) Seg Neutrophils % Seg Neuts % (Manual) Lymphocytes % (Manual) Monocytes % (Manual) Nucleated RBC % Seg Neutrophils # Seg Neutrophils # Man Lymphocytes # (Manual) Monocytes # (Manual) PT INR D-Dimer ABG pH POC ABG pCO2 POC ABG pO2 ABG pO2 ABG HCO3 ABG Base Excess ABG Hemoglobin ABG Oxyhemoglobin ABG Sodium ABG Potassium ABG Chloride ABG Glucose Carboxyhemoglobin Sodium Potassium 3.1 L Chloride Carbon Dioxide BUN 73 H Creatinine 2.6 H Glucose 154 H POC Glucose 140 H Lactic Acid Calcium Phosphorus Ferritin Total Bilirubin Direct Bilirubin AST ALT Lactate Dehydrogenase Total Creatine Kinase Troponin T Total Protein Albumin Triglycerides Arterial Blood Glucose Arterial Blood Ionized Calcium Urine pH Urine WBC (Auto) Urine Creatinine Salicylates Acetaminophen Coronavirus (PCR) 09/18/20 09/18/20 09/19/20 18:15 23:37 05:13 WBC 22.8 H RBC 3.30 L Hgb 9.2 L Hct 28.1 L MCHC RDW 18.2 H Lymph % (Auto) Yell % (Auto) Lymph # (Auto) Yell # (Auto) Seg Neutrophils % Seg Neuts % (Manual) 87.0 H Lymphocytes % (Manual) 5.0 L Monocytes % (Manual) Nucleated RBC % Seg Neutrophils # Seg Neutrophils # Man 19.8 H Lymphocytes # (Manual) 1.1 L Monocytes # (Manual) 1.6 H PT INR D-Dimer ABG pH POC ABG pCO2 POC ABG pO2 ABG pO2 ABG HCO3 ABG Base Excess ABG Hemoglobin ABG Oxyhemoglobin ABG Sodium ABG Potassium ABG Chloride ABG Glucose Carboxyhemoglobin Sodium Potassium Chloride Carbon Dioxide BUN Creatinine Glucose POC Glucose 149 H 153 H Lactic Acid Calcium Phosphorus Ferritin Total Bilirubin Direct Bilirubin AST ALT Lactate Dehydrogenase Total Creatine Kinase Troponin T Total Protein Albumin Triglycerides Arterial Blood Glucose Arterial Blood Ionized Calcium Urine pH Urine WBC (Auto) Urine Creatinine Salicylates Acetaminophen Coronavirus (PCR) 09/19/20 09/19/20 09/19/20 05:13 05:25 11:56 WBC RBC Hgb Hct MCHC RDW Lymph % (Auto) Yell % (Auto) Lymph # (Auto) Yell # (Auto) Seg Neutrophils % Seg Neuts % (Manual) Lymphocytes % (Manual) Monocytes % (Manual) Nucleated RBC % Seg Neutrophils # Seg Neutrophils # Man Lymphocytes # (Manual) Monocytes # (Manual) PT INR D-Dimer ABG pH POC ABG pCO2 POC ABG pO2 ABG pO2 ABG HCO3 ABG Base Excess ABG Hemoglobin ABG Oxyhemoglobin ABG Sodium ABG Potassium ABG Chloride ABG Glucose Carboxyhemoglobin Sodium Potassium Chloride Carbon Dioxide BUN 55 H Creatinine 2.3 H Glucose 196 H POC Glucose 168 H 137 H Lactic Acid Calcium Phosphorus Ferritin Total Bilirubin Direct Bilirubin AST ALT Lactate Dehydrogenase Total Creatine Kinase Troponin T Total Protein Albumin Triglycerides Arterial Blood Glucose Arterial Blood Ionized Calcium Urine pH Urine WBC (Auto) Urine Creatinine Salicylates Acetaminophen Coronavirus (PCR) 09/19/20 09/19/20 09/20/20 17:43 23:43 05:02 WBC RBC Hgb Hct MCHC RDW Lymph % (Auto) Yell % (Auto) Lymph # (Auto) Yell # (Auto) Seg Neutrophils % Seg Neuts % (Manual) Lymphocytes % (Manual) Monocytes % (Manual) Nucleated RBC % Seg Neutrophils # Seg Neutrophils # Man Lymphocytes # (Manual) Monocytes # (Manual) PT INR D-Dimer ABG pH POC ABG pCO2 POC ABG pO2 ABG pO2 ABG HCO3 ABG Base Excess ABG Hemoglobin ABG Oxyhemoglobin ABG Sodium ABG Potassium ABG Chloride ABG Glucose Carboxyhemoglobin Sodium Potassium Chloride Carbon Dioxide BUN Creatinine Glucose POC Glucose 114 H 136 H 163 H Lactic Acid Calcium Phosphorus Ferritin Total Bilirubin Direct Bilirubin AST ALT Lactate Dehydrogenase Total Creatine Kinase Troponin T Total Protein Albumin Triglycerides Arterial Blood Glucose Arterial Blood Ionized Calcium Urine pH Urine WBC (Auto) Urine Creatinine Salicylates Acetaminophen Coronavirus (PCR) 09/20/20 09/20/20 09/20/20 05:36 05:36 11:10 WBC 20.1 H RBC 3.07 L Hgb 8.5 L Hct 26.4 L MCHC RDW 18.6 H Lymph % (Auto) 9.6 L Yell % (Auto) 9.6 H Lymph # (Auto) Yell # (Auto) 1.9 H Seg Neutrophils % 79.0 H Seg Neuts % (Manual) Lymphocytes % (Manual) Monocytes % (Manual) Nucleated RBC % Seg Neutrophils # 15.9 H Seg Neutrophils # Man Lymphocytes # (Manual) Monocytes # (Manual) PT INR D-Dimer ABG pH POC ABG pCO2 POC ABG pO2 ABG pO2 ABG HCO3 ABG Base Excess ABG Hemoglobin ABG Oxyhemoglobin ABG Sodium ABG Potassium ABG Chloride ABG Glucose Carboxyhemoglobin Sodium Potassium 3.3 L Chloride Carbon Dioxide BUN 76 H Creatinine 3.6 H D Glucose 213 H POC Glucose 167 H Lactic Acid Calcium Phosphorus Ferritin Total Bilirubin Direct Bilirubin AST ALT Lactate Dehydrogenase Total Creatine Kinase Troponin T Total Protein Albumin Triglycerides Arterial Blood Glucose Arterial Blood Ionized Calcium Urine pH Urine WBC (Auto) Urine Creatinine Salicylates Acetaminophen Coronavirus (PCR) 09/20/20 09/20/20 09/20/20 14:02 17:24 23:30 WBC RBC Hgb Hct MCHC RDW Lymph % (Auto) Yell % (Auto) Lymph # (Auto) Yell # (Auto) Seg Neutrophils % Seg Neuts % (Manual) Lymphocytes % (Manual) Monocytes % (Manual) Nucleated RBC % Seg Neutrophils # Seg Neutrophils # Man Lymphocytes # (Manual) Monocytes # (Manual) PT INR D-Dimer ABG pH POC ABG pCO2 POC ABG pO2 ABG pO2 ABG HCO3 ABG Base Excess ABG Hemoglobin ABG Oxyhemoglobin ABG Sodium ABG Potassium ABG Chloride ABG Glucose Carboxyhemoglobin Sodium Potassium Chloride Carbon Dioxide BUN Creatinine Glucose POC Glucose 164 H 146 H 147 H Lactic Acid Calcium Phosphorus Ferritin Total Bilirubin Direct Bilirubin AST ALT Lactate Dehydrogenase Total Creatine Kinase Troponin T Total Protein Albumin Triglycerides Arterial Blood Glucose Arterial Blood Ionized Calcium Urine pH Urine WBC (Auto) Urine Creatinine Salicylates Acetaminophen Coronavirus (PCR) 09/21/20 09/21/20 09/21/20 05:00 05:00 05:24 WBC 17.4 H RBC 2.95 L Hgb 8.3 L Hct 25.8 L MCHC RDW 19.3 H Lymph % (Auto) 11.1 L Yell % (Auto) 11.1 H Lymph # (Auto) Yell # (Auto) 1.9 H Seg Neutrophils % 75.9 H Seg Neuts % (Manual) Lymphocytes % (Manual) Monocytes % (Manual) Nucleated RBC % Seg Neutrophils # 13.2 H Seg Neutrophils # Man Lymphocytes # (Manual) Monocytes # (Manual) PT INR D-Dimer ABG pH POC ABG pCO2 POC ABG pO2 ABG pO2 ABG HCO3 ABG Base Excess ABG Hemoglobin ABG Oxyhemoglobin ABG Sodium ABG Potassium ABG Chloride ABG Glucose Carboxyhemoglobin Sodium Potassium Chloride Carbon Dioxide BUN 60 H Creatinine 3.5 H Glucose 185 H POC Glucose 139 H Lactic Acid Calcium Phosphorus Ferritin Total Bilirubin Direct Bilirubin AST ALT Lactate Dehydrogenase Total Creatine Kinase Troponin T Total Protein Albumin Triglycerides Arterial Blood Glucose Arterial Blood Ionized Calcium Urine pH Urine WBC (Auto) Urine Creatinine Salicylates Acetaminophen Coronavirus (PCR) 09/21/20 09/21/20 09/21/20 11:59 17:59 23:32 WBC RBC Hgb Hct MCHC RDW Lymph % (Auto) Yell % (Auto) Lymph # (Auto) Yell # (Auto) Seg Neutrophils % Seg Neuts % (Manual) Lymphocytes % (Manual) Monocytes % (Manual) Nucleated RBC % Seg Neutrophils # Seg Neutrophils # Man Lymphocytes # (Manual) Monocytes # (Manual) PT INR D-Dimer ABG pH POC ABG pCO2 POC ABG pO2 ABG pO2 ABG HCO3 ABG Base Excess ABG Hemoglobin ABG Oxyhemoglobin ABG Sodium ABG Potassium ABG Chloride ABG Glucose Carboxyhemoglobin Sodium Potassium Chloride Carbon Dioxide BUN Creatinine Glucose POC Glucose 183 H 141 H 162 H Lactic Acid Calcium Phosphorus Ferritin Total Bilirubin Direct Bilirubin AST ALT Lactate Dehydrogenase Total Creatine Kinase Troponin T Total Protein Albumin Triglycerides Arterial Blood Glucose Arterial Blood Ionized Calcium Urine pH Urine WBC (Auto) Urine Creatinine Salicylates Acetaminophen Coronavirus (PCR) 09/22/20 09/22/20 09/22/20 05:32 12:07 17:53 WBC RBC Hgb Hct MCHC RDW Lymph % (Auto) Yell % (Auto) Lymph # (Auto) Yell # (Auto) Seg Neutrophils % Seg Neuts % (Manual) Lymphocytes % (Manual) Monocytes % (Manual) Nucleated RBC % Seg Neutrophils # Seg Neutrophils # Man Lymphocytes # (Manual) Monocytes # (Manual) PT INR D-Dimer ABG pH POC ABG pCO2 POC ABG pO2 ABG pO2 ABG HCO3 ABG Base Excess ABG Hemoglobin ABG Oxyhemoglobin ABG Sodium ABG Potassium ABG Chloride ABG Glucose Carboxyhemoglobin Sodium Potassium Chloride Carbon Dioxide BUN Creatinine Glucose POC Glucose 172 H 169 H 178 H Lactic Acid Calcium Phosphorus Ferritin Total Bilirubin Direct Bilirubin AST ALT Lactate Dehydrogenase Total Creatine Kinase Troponin T Total Protein Albumin Triglycerides Arterial Blood Glucose Arterial Blood Ionized Calcium Urine pH Urine WBC (Auto) Urine Creatinine Salicylates Acetaminophen Coronavirus (PCR) 09/22/20 09/23/20 09/23/20 23:34 05:21 06:05 WBC RBC Hgb Hct MCHC RDW Lymph % (Auto) Yell % (Auto) Lymph # (Auto) Yell # (Auto) Seg Neutrophils % Seg Neuts % (Manual) Lymphocytes % (Manual) Monocytes % (Manual) Nucleated RBC % Seg Neutrophils # Seg Neutrophils # Man Lymphocytes # (Manual) Monocytes # (Manual) PT INR D-Dimer ABG pH POC ABG pCO2 POC ABG pO2 ABG pO2 ABG HCO3 ABG Base Excess ABG Hemoglobin ABG Oxyhemoglobin ABG Sodium ABG Potassium ABG Chloride ABG Glucose Carboxyhemoglobin Sodium 147 H Potassium Chloride 109.2 H Carbon Dioxide 21 L BUN 54 H Creatinine 4.2 H Glucose 193 H POC Glucose 151 H 168 H Lactic Acid Calcium Phosphorus Ferritin Total Bilirubin Direct Bilirubin AST ALT Lactate Dehydrogenase Total Creatine Kinase Troponin T Total Protein Albumin Triglycerides Arterial Blood Glucose Arterial Blood Ionized Calcium Urine pH Urine WBC (Auto) Urine Creatinine Salicylates Acetaminophen Coronavirus (PCR) 09/23/20 09/23/20 09/23/20 12:30 17:52 23:16 WBC RBC Hgb Hct MCHC RDW Lymph % (Auto) Yell % (Auto) Lymph # (Auto) Yell # (Auto) Seg Neutrophils % Seg Neuts % (Manual) Lymphocytes % (Manual) Monocytes % (Manual) Nucleated RBC % Seg Neutrophils # Seg Neutrophils # Man Lymphocytes # (Manual) Monocytes # (Manual) PT INR D-Dimer ABG pH POC ABG pCO2 POC ABG pO2 ABG pO2 ABG HCO3 ABG Base Excess ABG Hemoglobin ABG Oxyhemoglobin ABG Sodium ABG Potassium ABG Chloride ABG Glucose Carboxyhemoglobin Sodium Potassium Chloride Carbon Dioxide BUN Creatinine Glucose POC Glucose 170 H 164 H 160 H Lactic Acid Calcium Phosphorus Ferritin Total Bilirubin Direct Bilirubin AST ALT Lactate Dehydrogenase Total Creatine Kinase Troponin T Total Protein Albumin Triglycerides Arterial Blood Glucose Arterial Blood Ionized Calcium Urine pH Urine WBC (Auto) Urine Creatinine Salicylates Acetaminophen Coronavirus (PCR) 09/24/20 09/24/20 09/24/20 05:22 05:44 12:32 WBC RBC Hgb Hct MCHC RDW Lymph % (Auto) Yell % (Auto) Lymph # (Auto) Yell # (Auto) Seg Neutrophils % Seg Neuts % (Manual) Lymphocytes % (Manual) Monocytes % (Manual) Nucleated RBC % Seg Neutrophils # Seg Neutrophils # Man Lymphocytes # (Manual) Monocytes # (Manual) PT INR D-Dimer ABG pH POC ABG pCO2 POC ABG pO2 ABG pO2 ABG HCO3 ABG Base Excess ABG Hemoglobin ABG Oxyhemoglobin ABG Sodium ABG Potassium ABG Chloride ABG Glucose Carboxyhemoglobin Sodium 148 H Potassium Chloride 109.2 H Carbon Dioxide BUN 61 H Creatinine 4.9 H Glucose 176 H POC Glucose 150 H 165 H Lactic Acid Calcium Phosphorus Ferritin Total Bilirubin Direct Bilirubin AST ALT Lactate Dehydrogenase Total Creatine Kinase Troponin T Total Protein Albumin Triglycerides Arterial Blood Glucose Arterial Blood Ionized Calcium Urine pH Urine WBC (Auto) Urine Creatinine Salicylates Acetaminophen Coronavirus (PCR) 09/24/20 09/24/20 09/25/20 17:28 23:18 05:18 WBC RBC Hgb Hct MCHC RDW Lymph % (Auto) Yell % (Auto) Lymph # (Auto) Yell # (Auto) Seg Neutrophils % Seg Neuts % (Manual) Lymphocytes % (Manual) Monocytes % (Manual) Nucleated RBC % Seg Neutrophils # Seg Neutrophils # Man Lymphocytes # (Manual) Monocytes # (Manual) PT INR D-Dimer ABG pH POC ABG pCO2 POC ABG pO2 ABG pO2 ABG HCO3 ABG Base Excess ABG Hemoglobin ABG Oxyhemoglobin ABG Sodium ABG Potassium ABG Chloride ABG Glucose Carboxyhemoglobin Sodium 149 H Potassium 3.3 L Chloride 109.6 H Carbon Dioxide BUN 70 H Creatinine 5.6 H Glucose 196 H POC Glucose 153 H 177 H Lactic Acid Calcium Phosphorus Ferritin Total Bilirubin Direct Bilirubin AST 55 H ALT 74 H Lactate Dehydrogenase Total Creatine Kinase Troponin T Total Protein Albumin 2.6 L Triglycerides Arterial Blood Glucose Arterial Blood Ionized Calcium Urine pH Urine WBC (Auto) Urine Creatinine Salicylates Acetaminophen Coronavirus (PCR) 09/25/20 09/25/20 09/25/20 05:18 11:47 17:04 WBC RBC Hgb Hct MCHC RDW Lymph % (Auto) Yell % (Auto) Lymph # (Auto) Yell # (Auto) Seg Neutrophils % Seg Neuts % (Manual) Lymphocytes % (Manual) Monocytes % (Manual) Nucleated RBC % Seg Neutrophils # Seg Neutrophils # Man Lymphocytes # (Manual) Monocytes # (Manual) PT INR D-Dimer ABG pH POC ABG pCO2 POC ABG pO2 ABG pO2 ABG HCO3 ABG Base Excess ABG Hemoglobin ABG Oxyhemoglobin ABG Sodium ABG Potassium ABG Chloride ABG Glucose Carboxyhemoglobin Sodium Potassium Chloride Carbon Dioxide BUN Creatinine Glucose POC Glucose 159 H 169 H 142 H Lactic Acid Calcium Phosphorus Ferritin Total Bilirubin Direct Bilirubin AST ALT Lactate Dehydrogenase Total Creatine Kinase Troponin T Total Protein Albumin Triglycerides Arterial Blood Glucose Arterial Blood Ionized Calcium Urine pH Urine WBC (Auto) Urine Creatinine Salicylates Acetaminophen Coronavirus (PCR) 09/25/20 09/26/20 09/26/20 23:20 04:00 05:00 WBC RBC 2.93 L Hgb 8.5 L Hct 25.8 L MCHC RDW 18.5 H Lymph % (Auto) Yell % (Auto) 11.3 H Lymph # (Auto) Yell # (Auto) 1.1 H Seg Neutrophils % 72.0 H Seg Neuts % (Manual) Lymphocytes % (Manual) Monocytes % (Manual) Nucleated RBC % Seg Neutrophils # Seg Neutrophils # Man Lymphocytes # (Manual) Monocytes # (Manual) PT INR D-Dimer ABG pH POC ABG pCO2 POC ABG pO2 ABG pO2 ABG HCO3 ABG Base Excess ABG Hemoglobin ABG Oxyhemoglobin ABG Sodium ABG Potassium ABG Chloride ABG Glucose Carboxyhemoglobin Sodium Potassium 3.4 L Chloride Carbon Dioxide BUN 49 H Creatinine 4.4 H Glucose 179 H POC Glucose 138 H Lactic Acid Calcium Phosphorus Ferritin Total Bilirubin Direct Bilirubin AST ALT Lactate Dehydrogenase Total Creatine Kinase Troponin T Total Protein Albumin Triglycerides Arterial Blood Glucose Arterial Blood Ionized Calcium Urine pH Urine WBC (Auto) Urine Creatinine Salicylates Acetaminophen Coronavirus (PCR) 09/26/20 09/26/20 09/26/20 05:18 11:59 17:37 WBC RBC Hgb Hct MCHC RDW Lymph % (Auto) Yell % (Auto) Lymph # (Auto) Yell # (Auto) Seg Neutrophils % Seg Neuts % (Manual) Lymphocytes % (Manual) Monocytes % (Manual) Nucleated RBC % Seg Neutrophils # Seg Neutrophils # Man Lymphocytes # (Manual) Monocytes # (Manual) PT INR D-Dimer ABG pH POC ABG pCO2 POC ABG pO2 ABG pO2 ABG HCO3 ABG Base Excess ABG Hemoglobin ABG Oxyhemoglobin ABG Sodium ABG Potassium ABG Chloride ABG Glucose Carboxyhemoglobin Sodium Potassium Chloride Carbon Dioxide BUN Creatinine Glucose POC Glucose 155 H 165 H 132 H Lactic Acid Calcium Phosphorus Ferritin Total Bilirubin Direct Bilirubin AST ALT Lactate Dehydrogenase Total Creatine Kinase Troponin T Total Protein Albumin Triglycerides Arterial Blood Glucose Arterial Blood Ionized Calcium Urine pH Urine WBC (Auto) Urine Creatinine Salicylates Acetaminophen Coronavirus (PCR) 09/26/20 09/27/20 09/27/20 23:35 04:47 04:47 WBC RBC 3.24 L Hgb 9.3 L Hct 28.6 L MCHC RDW 18.2 H Lymph % (Auto) Yell % (Auto) 11.6 H Lymph # (Auto) Yell # (Auto) 1.0 H Seg Neutrophils % Seg Neuts % (Manual) Lymphocytes % (Manual) Monocytes % (Manual) Nucleated RBC % Seg Neutrophils # Seg Neutrophils # Man Lymphocytes # (Manual) Monocytes # (Manual) PT INR D-Dimer ABG pH POC ABG pCO2 POC ABG pO2 ABG pO2 ABG HCO3 ABG Base Excess ABG Hemoglobin ABG Oxyhemoglobin ABG Sodium ABG Potassium ABG Chloride ABG Glucose Carboxyhemoglobin Sodium Potassium Chloride Carbon Dioxide BUN 54 H Creatinine 4.7 H Glucose 218 H POC Glucose 180 H Lactic Acid Calcium Phosphorus Ferritin Total Bilirubin Direct Bilirubin AST ALT Lactate Dehydrogenase Total Creatine Kinase Troponin T Total Protein Albumin Triglycerides Arterial Blood Glucose Arterial Blood Ionized Calcium Urine pH Urine WBC (Auto) Urine Creatinine Salicylates Acetaminophen Coronavirus (PCR) 09/27/20 09/27/20 09/27/20 05:14 11:49 17:48 WBC RBC Hgb Hct MCHC RDW Lymph % (Auto) Yell % (Auto) Lymph # (Auto) Yell # (Auto) Seg Neutrophils % Seg Neuts % (Manual) Lymphocytes % (Manual) Monocytes % (Manual) Nucleated RBC % Seg Neutrophils # Seg Neutrophils # Man Lymphocytes # (Manual) Monocytes # (Manual) PT INR D-Dimer ABG pH POC ABG pCO2 POC ABG pO2 ABG pO2 ABG HCO3 ABG Base Excess ABG Hemoglobin ABG Oxyhemoglobin ABG Sodium ABG Potassium ABG Chloride ABG Glucose Carboxyhemoglobin Sodium Potassium Chloride Carbon Dioxide BUN Creatinine Glucose POC Glucose 197 H 219 H 203 H Lactic Acid Calcium Phosphorus Ferritin Total Bilirubin Direct Bilirubin AST ALT Lactate Dehydrogenase Total Creatine Kinase Troponin T Total Protein Albumin Triglycerides Arterial Blood Glucose Arterial Blood Ionized Calcium Urine pH Urine WBC (Auto) Urine Creatinine Salicylates Acetaminophen Coronavirus (PCR) 09/27/20 09/28/20 09/28/20 23:26 05:28 07:02 WBC RBC Hgb Hct MCHC RDW Lymph % (Auto) Yell % (Auto) Lymph # (Auto) Yell # (Auto) Seg Neutrophils % Seg Neuts % (Manual) Lymphocytes % (Manual) Monocytes % (Manual) Nucleated RBC % Seg Neutrophils # Seg Neutrophils # Man Lymphocytes # (Manual) Monocytes # (Manual) PT INR D-Dimer ABG pH POC ABG pCO2 POC ABG pO2 ABG pO2 ABG HCO3 ABG Base Excess ABG Hemoglobin ABG Oxyhemoglobin ABG Sodium ABG Potassium ABG Chloride ABG Glucose Carboxyhemoglobin Sodium Potassium Chloride Carbon Dioxide BUN 37 H Creatinine 3.8 H Glucose 270 H POC Glucose 243 H 227 H Lactic Acid Calcium Phosphorus Ferritin Total Bilirubin Direct Bilirubin AST ALT Lactate Dehydrogenase Total Creatine Kinase Troponin T Total Protein Albumin Triglycerides Arterial Blood Glucose Arterial Blood Ionized Calcium Urine pH Urine WBC (Auto) Urine Creatinine Salicylates Acetaminophen Coronavirus (PCR) 09/28/20 09/28/20 09/28/20 07:02 11:35 17:44 WBC RBC 3.26 L Hgb 9.3 L Hct 28.7 L MCHC RDW 18.5 H Lymph % (Auto) Yell % (Auto) 12.7 H Lymph # (Auto) Yell # (Auto) 1.1 H Seg Neutrophils % Seg Neuts % (Manual) Lymphocytes % (Manual) Monocytes % (Manual) Nucleated RBC % Seg Neutrophils # Seg Neutrophils # Man Lymphocytes # (Manual) Monocytes # (Manual) PT INR D-Dimer ABG pH POC ABG pCO2 POC ABG pO2 ABG pO2 ABG HCO3 ABG Base Excess ABG Hemoglobin ABG Oxyhemoglobin ABG Sodium ABG Potassium ABG Chloride ABG Glucose Carboxyhemoglobin Sodium Potassium Chloride Carbon Dioxide BUN Creatinine Glucose POC Glucose 230 H 237 H Lactic Acid Calcium Phosphorus Ferritin Total Bilirubin Direct Bilirubin AST ALT Lactate Dehydrogenase Total Creatine Kinase Troponin T Total Protein Albumin Triglycerides Arterial Blood Glucose Arterial Blood Ionized Calcium Urine pH Urine WBC (Auto) Urine Creatinine Salicylates Acetaminophen Coronavirus (PCR) 09/28/20 09/29/20 09/29/20 23:52 05:11 05:20 WBC RBC Hgb Hct MCHC RDW Lymph % (Auto) Yell % (Auto) Lymph # (Auto) Yell # (Auto) Seg Neutrophils % Seg Neuts % (Manual) Lymphocytes % (Manual) Monocytes % (Manual) Nucleated RBC % Seg Neutrophils # Seg Neutrophils # Man Lymphocytes # (Manual) Monocytes # (Manual) PT INR D-Dimer ABG pH POC ABG pCO2 POC ABG pO2 ABG pO2 ABG HCO3 ABG Base Excess ABG Hemoglobin ABG Oxyhemoglobin ABG Sodium ABG Potassium ABG Chloride ABG Glucose Carboxyhemoglobin Sodium Potassium Chloride Carbon Dioxide BUN 47 H Creatinine 4.2 H Glucose 289 H POC Glucose 261 H 254 H Lactic Acid Calcium Phosphorus Ferritin Total Bilirubin Direct Bilirubin AST ALT Lactate Dehydrogenase Total Creatine Kinase Troponin T Total Protein Albumin Triglycerides Arterial Blood Glucose Arterial Blood Ionized Calcium Urine pH Urine WBC (Auto) Urine Creatinine Salicylates Acetaminophen Coronavirus (PCR) 09/29/20 09/29/20 09/29/20 05:20 11:55 17:13 WBC RBC 3.23 L Hgb 9.0 L Hct 27.7 L MCHC RDW 18.3 H Lymph % (Auto) 13.0 L Yell % (Auto) 13.8 H Lymph # (Auto) Yell # (Auto) 1.5 H Seg Neutrophils % 72.3 H Seg Neuts % (Manual) Lymphocytes % (Manual) Monocytes % (Manual) Nucleated RBC % Seg Neutrophils # Seg Neutrophils # Man Lymphocytes # (Manual) Monocytes # (Manual) PT INR D-Dimer ABG pH POC ABG pCO2 POC ABG pO2 ABG pO2 ABG HCO3 ABG Base Excess ABG Hemoglobin ABG Oxyhemoglobin ABG Sodium ABG Potassium ABG Chloride ABG Glucose Carboxyhemoglobin Sodium Potassium Chloride Carbon Dioxide BUN Creatinine Glucose POC Glucose 263 H 279 H Lactic Acid Calcium Phosphorus Ferritin Total Bilirubin Direct Bilirubin AST ALT Lactate Dehydrogenase Total Creatine Kinase Troponin T Total Protein Albumin Triglycerides Arterial Blood Glucose Arterial Blood Ionized Calcium Urine pH Urine WBC (Auto) Urine Creatinine Salicylates Acetaminophen Coronavirus (PCR) 09/29/20 09/30/20 09/30/20 23:25 05:15 06:57 WBC RBC 3.14 L Hgb 9.0 L Hct 27.4 L MCHC RDW 18.5 H Lymph % (Auto) Yell % (Auto) Lymph # (Auto) Yell # (Auto) Seg Neutrophils % Seg Neuts % (Manual) Lymphocytes % (Manual) Monocytes % (Manual) 13.0 H Nucleated RBC % Seg Neutrophils # Seg Neutrophils # Man Lymphocytes # (Manual) Monocytes # (Manual) 1.1 H PT INR D-Dimer ABG pH POC ABG pCO2 POC ABG pO2 ABG pO2 ABG HCO3 ABG Base Excess ABG Hemoglobin ABG Oxyhemoglobin ABG Sodium ABG Potassium ABG Chloride ABG Glucose Carboxyhemoglobin Sodium Potassium Chloride Carbon Dioxide BUN Creatinine Glucose POC Glucose 284 H 283 H Lactic Acid Calcium Phosphorus Ferritin Total Bilirubin Direct Bilirubin AST ALT Lactate Dehydrogenase Total Creatine Kinase Troponin T Total Protein Albumin Triglycerides Arterial Blood Glucose Arterial Blood Ionized Calcium Urine pH Urine WBC (Auto) Urine Creatinine Salicylates Acetaminophen Coronavirus (PCR) 09/30/20 09/30/20 09/30/20 11:54 17:28 23:34 WBC RBC Hgb Hct MCHC RDW Lymph % (Auto) Yell % (Auto) Lymph # (Auto) Yell # (Auto) Seg Neutrophils % Seg Neuts % (Manual) Lymphocytes % (Manual) Monocytes % (Manual) Nucleated RBC % Seg Neutrophils # Seg Neutrophils # Man Lymphocytes # (Manual) Monocytes # (Manual) PT INR D-Dimer ABG pH POC ABG pCO2 POC ABG pO2 ABG pO2 ABG HCO3 ABG Base Excess ABG Hemoglobin ABG Oxyhemoglobin ABG Sodium ABG Potassium ABG Chloride ABG Glucose Carboxyhemoglobin Sodium Potassium Chloride Carbon Dioxide BUN Creatinine Glucose POC Glucose 288 H 262 H 258 H Lactic Acid Calcium Phosphorus Ferritin Total Bilirubin Direct Bilirubin AST ALT Lactate Dehydrogenase Total Creatine Kinase Troponin T Total Protein Albumin Triglycerides Arterial Blood Glucose Arterial Blood Ionized Calcium Urine pH Urine WBC (Auto) Urine Creatinine Salicylates Acetaminophen Coronavirus (PCR) 10/01/20 10/01/20 10/01/20 04:33 04:49 05:30 WBC RBC 2.87 L Hgb 8.2 L Hct 24.9 L MCHC RDW 18.2 H Lymph % (Auto) Yell % (Auto) Lymph # (Auto) Yell # (Auto) 1.2 H Seg Neutrophils % Seg Neuts % (Manual) Lymphocytes % (Manual) Monocytes % (Manual) Nucleated RBC % Seg Neutrophils # Seg Neutrophils # Man Lymphocytes # (Manual) Monocytes # (Manual) PT INR D-Dimer ABG pH POC ABG pCO2 POC ABG pO2 ABG pO2 ABG HCO3 ABG Base Excess ABG Hemoglobin 10.0 L ABG Oxyhemoglobin ABG Sodium ABG Potassium ABG Chloride ABG Glucose 270 H Carboxyhemoglobin Sodium Potassium Chloride Carbon Dioxide BUN Creatinine Glucose POC Glucose 219 H Lactic Acid Calcium Phosphorus Ferritin Total Bilirubin Direct Bilirubin AST ALT Lactate Dehydrogenase Total Creatine Kinase Troponin T Total Protein Albumin Triglycerides Arterial Blood Glucose 270 H Arterial Blood Ionized Calcium Urine pH Urine WBC (Auto) Urine Creatinine Salicylates Acetaminophen Coronavirus (PCR) 10/01/20 10/01/20 10/01/20 12:10 16:32 23:36 WBC RBC Hgb Hct MCHC RDW Lymph % (Auto) Yell % (Auto) Lymph # (Auto) Yell # (Auto) Seg Neutrophils % Seg Neuts % (Manual) Lymphocytes % (Manual) Monocytes % (Manual) Nucleated RBC % Seg Neutrophils # Seg Neutrophils # Man Lymphocytes # (Manual) Monocytes # (Manual) PT INR D-Dimer ABG pH POC ABG pCO2 POC ABG pO2 ABG pO2 ABG HCO3 ABG Base Excess ABG Hemoglobin ABG Oxyhemoglobin ABG Sodium ABG Potassium ABG Chloride ABG Glucose Carboxyhemoglobin Sodium Potassium Chloride Carbon Dioxide BUN Creatinine Glucose POC Glucose 266 H 259 H 262 H Lactic Acid Calcium Phosphorus Ferritin Total Bilirubin Direct Bilirubin AST ALT Lactate Dehydrogenase Total Creatine Kinase Troponin T Total Protein Albumin Triglycerides Arterial Blood Glucose Arterial Blood Ionized Calcium Urine pH Urine WBC (Auto) Urine Creatinine Salicylates Acetaminophen Coronavirus (PCR) 10/02/20 10/02/20 10/02/20 00:58 05:29 10:16 WBC RBC Hgb Hct MCHC RDW Lymph % (Auto) Yell % (Auto) Lymph # (Auto) Yell # (Auto) Seg Neutrophils % Seg Neuts % (Manual) Lymphocytes % (Manual) Monocytes % (Manual) Nucleated RBC % Seg Neutrophils # Seg Neutrophils # Man Lymphocytes # (Manual) Monocytes # (Manual) PT INR D-Dimer ABG pH 7.468 H POC ABG pCO2 POC ABG pO2 72.9 L ABG pO2 ABG HCO3 ABG Base Excess ABG Hemoglobin 10.1 L ABG Oxyhemoglobin 93.1 L ABG Sodium ABG Potassium ABG Chloride 108.0 H ABG Glucose 289 H Carboxyhemoglobin Sodium Potassium Chloride Carbon Dioxide BUN 58 H Creatinine 5.0 H Glucose 324 H POC Glucose 260 H Lactic Acid Calcium Phosphorus Ferritin Total Bilirubin Direct Bilirubin AST ALT Lactate Dehydrogenase Total Creatine Kinase Troponin T Total Protein Albumin Triglycerides Arterial Blood Glucose 289 H Arterial Blood Ionized Calcium Urine pH Urine WBC (Auto) Urine Creatinine Salicylates Acetaminophen Coronavirus (PCR) 10/02/20 10/02/20 10/03/20 11:29 17:55 00:11 WBC RBC Hgb Hct MCHC RDW Lymph % (Auto) Yell % (Auto) Lymph # (Auto) Yell # (Auto) Seg Neutrophils % Seg Neuts % (Manual) Lymphocytes % (Manual) Monocytes % (Manual) Nucleated RBC % Seg Neutrophils # Seg Neutrophils # Man Lymphocytes # (Manual) Monocytes # (Manual) PT INR D-Dimer ABG pH POC ABG pCO2 POC ABG pO2 ABG pO2 ABG HCO3 ABG Base Excess ABG Hemoglobin ABG Oxyhemoglobin ABG Sodium ABG Potassium ABG Chloride ABG Glucose Carboxyhemoglobin Sodium Potassium Chloride Carbon Dioxide BUN Creatinine Glucose POC Glucose 268 H 210 H 172 H Lactic Acid Calcium Phosphorus Ferritin Total Bilirubin Direct Bilirubin AST ALT Lactate Dehydrogenase Total Creatine Kinase Troponin T Total Protein Albumin Triglycerides Arterial Blood Glucose Arterial Blood Ionized Calcium Urine pH Urine WBC (Auto) Urine Creatinine Salicylates Acetaminophen Coronavirus (PCR) 10/03/20 10/03/20 10/03/20 06:01 12:13 12:21 WBC RBC Hgb Hct MCHC RDW Lymph % (Auto) Yell % (Auto) Lymph # (Auto) Yell # (Auto) Seg Neutrophils % Seg Neuts % (Manual) Lymphocytes % (Manual) Monocytes % (Manual) Nucleated RBC % Seg Neutrophils # Seg Neutrophils # Man Lymphocytes # (Manual) Monocytes # (Manual) PT INR D-Dimer ABG pH POC ABG pCO2 POC ABG pO2 ABG pO2 ABG HCO3 ABG Base Excess ABG Hemoglobin ABG Oxyhemoglobin ABG Sodium ABG Potassium ABG Chloride ABG Glucose Carboxyhemoglobin Sodium 133 L D Potassium Chloride 97.7 L Carbon Dioxide BUN 47 H Creatinine 3.8 H Glucose 345 H POC Glucose 186 H 305 H Lactic Acid Calcium Phosphorus Ferritin Total Bilirubin Direct Bilirubin AST ALT Lactate Dehydrogenase Total Creatine Kinase Troponin T Total Protein Albumin Triglycerides Arterial Blood Glucose Arterial Blood Ionized Calcium Urine pH Urine WBC (Auto) Urine Creatinine Salicylates Acetaminophen Coronavirus (PCR) 10/03/20 10/03/20 10/03/20 16:23 16:57 22:52 WBC RBC Hgb Hct MCHC RDW Lymph % (Auto) Yell % (Auto) Lymph # (Auto) Yell # (Auto) Seg Neutrophils % Seg Neuts % (Manual) Lymphocytes % (Manual) Monocytes % (Manual) Nucleated RBC % Seg Neutrophils # Seg Neutrophils # Man Lymphocytes # (Manual) Monocytes # (Manual) PT INR D-Dimer ABG pH POC ABG pCO2 POC ABG pO2 ABG pO2 ABG HCO3 ABG Base Excess ABG Hemoglobin ABG Oxyhemoglobin ABG Sodium ABG Potassium ABG Chloride ABG Glucose Carboxyhemoglobin Sodium Potassium Chloride Carbon Dioxide BUN Creatinine Glucose POC Glucose 248 H 245 H 169 H Lactic Acid Calcium Phosphorus Ferritin Total Bilirubin Direct Bilirubin AST ALT Lactate Dehydrogenase Total Creatine Kinase Troponin T Total Protein Albumin Triglycerides Arterial Blood Glucose Arterial Blood Ionized Calcium Urine pH Urine WBC (Auto) Urine Creatinine Salicylates Acetaminophen Coronavirus (PCR) 10/04/20 10/04/20 10/04/20 01:31 06:31 10:32 WBC RBC 2.65 L Hgb 7.8 L Hct 23.0 L MCHC RDW 18.2 H Lymph % (Auto) Yell % (Auto) Lymph # (Auto) Yell # (Auto) Seg Neutrophils % Seg Neuts % (Manual) Lymphocytes % (Manual) Monocytes % (Manual) 14.0 H Nucleated RBC % Seg Neutrophils # Seg Neutrophils # Man Lymphocytes # (Manual) Monocytes # (Manual) 1.2 H PT INR D-Dimer ABG pH POC ABG pCO2 POC ABG pO2 ABG pO2 ABG HCO3 ABG Base Excess ABG Hemoglobin ABG Oxyhemoglobin ABG Sodium ABG Potassium ABG Chloride ABG Glucose Carboxyhemoglobin Sodium 136 L Potassium Chloride Carbon Dioxide BUN 53 H Creatinine 4.6 H Glucose 184 H POC Glucose 200 H Lactic Acid Calcium Phosphorus Ferritin Total Bilirubin Direct Bilirubin AST ALT Lactate Dehydrogenase Total Creatine Kinase Troponin T Total Protein Albumin Triglycerides Arterial Blood Glucose Arterial Blood Ionized Calcium Urine pH Urine WBC (Auto) Urine Creatinine Salicylates Acetaminophen Coronavirus (PCR) 10/04/20 10/04/20 10/04/20 11:47 16:20 23:22 WBC RBC Hgb Hct MCHC RDW Lymph % (Auto) Yell % (Auto) Lymph # (Auto) Yell # (Auto) Seg Neutrophils % Seg Neuts % (Manual) Lymphocytes % (Manual) Monocytes % (Manual) Nucleated RBC % Seg Neutrophils # Seg Neutrophils # Man Lymphocytes # (Manual) Monocytes # (Manual) PT INR D-Dimer ABG pH POC ABG pCO2 POC ABG pO2 ABG pO2 ABG HCO3 ABG Base Excess ABG Hemoglobin ABG Oxyhemoglobin ABG Sodium ABG Potassium ABG Chloride ABG Glucose Carboxyhemoglobin Sodium Potassium Chloride Carbon Dioxide BUN Creatinine Glucose POC Glucose 206 H 187 H 249 H Lactic Acid Calcium Phosphorus Ferritin Total Bilirubin Direct Bilirubin AST ALT Lactate Dehydrogenase Total Creatine Kinase Troponin T Total Protein Albumin Triglycerides Arterial Blood Glucose Arterial Blood Ionized Calcium Urine pH Urine WBC (Auto) Urine Creatinine Salicylates Acetaminophen Coronavirus (PCR) 10/05/20 10/05/20 10/05/20 00:19 05:19 09:15 WBC RBC Hgb Hct MCHC RDW Lymph % (Auto) Yell % (Auto) Lymph # (Auto) Yell # (Auto) Seg Neutrophils % Seg Neuts % (Manual) Lymphocytes % (Manual) Monocytes % (Manual) Nucleated RBC % Seg Neutrophils # Seg Neutrophils # Man Lymphocytes # (Manual) Monocytes # (Manual) PT INR D-Dimer ABG pH POC ABG pCO2 POC ABG pO2 ABG pO2 ABG HCO3 ABG Base Excess ABG Hemoglobin ABG Oxyhemoglobin ABG Sodium ABG Potassium ABG Chloride ABG Glucose Carboxyhemoglobin Sodium 132 L Potassium Chloride 96.7 L Carbon Dioxide BUN 44 H Creatinine 3.9 H Glucose 252 H POC Glucose 218 H Lactic Acid Calcium Phosphorus Ferritin Total Bilirubin Direct Bilirubin AST ALT Lactate Dehydrogenase Total Creatine Kinase Troponin T Total Protein Albumin Triglycerides Arterial Blood Glucose Arterial Blood Ionized Calcium Urine pH Urine WBC (Auto) 13.0 H Urine Creatinine Salicylates Acetaminophen Coronavirus (PCR) 10/05/20 10/05/20 10/05/20 11:47 17:28 21:07 WBC RBC Hgb Hct MCHC RDW Lymph % (Auto) Yell % (Auto) Lymph # (Auto) Yell # (Auto) Seg Neutrophils % Seg Neuts % (Manual) Lymphocytes % (Manual) Monocytes % (Manual) Nucleated RBC % Seg Neutrophils # Seg Neutrophils # Man Lymphocytes # (Manual) Monocytes # (Manual) PT INR D-Dimer ABG pH POC ABG pCO2 POC ABG pO2 ABG pO2 ABG HCO3 ABG Base Excess ABG Hemoglobin ABG Oxyhemoglobin ABG Sodium ABG Potassium ABG Chloride ABG Glucose Carboxyhemoglobin Sodium Potassium Chloride Carbon Dioxide BUN Creatinine Glucose POC Glucose 201 H 244 H 208 H Lactic Acid Calcium Phosphorus Ferritin Total Bilirubin Direct Bilirubin AST ALT Lactate Dehydrogenase Total Creatine Kinase Troponin T Total Protein Albumin Triglycerides Arterial Blood Glucose Arterial Blood Ionized Calcium Urine pH Urine WBC (Auto) Urine Creatinine Salicylates Acetaminophen Coronavirus (PCR) 10/06/20 10/06/20 10/06/20 06:23 07:44 10:12 WBC RBC 2.92 L Hgb 8.4 L Hct 24.7 L MCHC RDW 18.1 H Lymph % (Auto) Yell % (Auto) Lymph # (Auto) Yell # (Auto) Seg Neutrophils % Seg Neuts % (Manual) Lymphocytes % (Manual) Monocytes % (Manual) Nucleated RBC % Seg Neutrophils # Seg Neutrophils # Man Lymphocytes # (Manual) Monocytes # (Manual) PT INR D-Dimer ABG pH POC ABG pCO2 POC ABG pO2 ABG pO2 ABG HCO3 ABG Base Excess ABG Hemoglobin ABG Oxyhemoglobin ABG Sodium ABG Potassium ABG Chloride ABG Glucose Carboxyhemoglobin Sodium Potassium Chloride Carbon Dioxide BUN Creatinine Glucose POC Glucose 251 H 280 H Lactic Acid Calcium Phosphorus Ferritin Total Bilirubin Direct Bilirubin AST ALT Lactate Dehydrogenase Total Creatine Kinase Troponin T Total Protein Albumin Triglycerides Arterial Blood Glucose Arterial Blood Ionized Calcium Urine pH Urine WBC (Auto) Urine Creatinine Salicylates Acetaminophen Coronavirus (PCR) 10/06/20 10/06/20 10/06/20 10:12 11:59 16:16 WBC RBC Hgb Hct MCHC RDW Lymph % (Auto) Yell % (Auto) Lymph # (Auto) Yell # (Auto) Seg Neutrophils % Seg Neuts % (Manual) Lymphocytes % (Manual) Monocytes % (Manual) Nucleated RBC % Seg Neutrophils # Seg Neutrophils # Man Lymphocytes # (Manual) Monocytes # (Manual) PT INR D-Dimer ABG pH POC ABG pCO2 POC ABG pO2 ABG pO2 ABG HCO3 ABG Base Excess ABG Hemoglobin ABG Oxyhemoglobin ABG Sodium ABG Potassium ABG Chloride ABG Glucose Carboxyhemoglobin Sodium 135 L Potassium Chloride Carbon Dioxide BUN 55 H Creatinine 4.3 H Glucose 304 H POC Glucose 273 H 274 H Lactic Acid Calcium Phosphorus Ferritin Total Bilirubin Direct Bilirubin AST 52 H ALT Lactate Dehydrogenase Total Creatine Kinase Troponin T Total Protein 8.4 H Albumin 2.3 L Triglycerides Arterial Blood Glucose Arterial Blood Ionized Calcium Urine pH Urine WBC (Auto) Urine Creatinine Salicylates Acetaminophen Coronavirus (PCR) 10/07/20 10/07/20 10/07/20 00:13 05:23 05:56 WBC RBC Hgb Hct MCHC RDW Lymph % (Auto) Yell % (Auto) Lymph # (Auto) Yell # (Auto) Seg Neutrophils % Seg Neuts % (Manual) Lymphocytes % (Manual) Monocytes % (Manual) Nucleated RBC % Seg Neutrophils # Seg Neutrophils # Man Lymphocytes # (Manual) Monocytes # (Manual) PT INR D-Dimer ABG pH POC ABG pCO2 POC ABG pO2 ABG pO2 ABG HCO3 ABG Base Excess ABG Hemoglobin ABG Oxyhemoglobin ABG Sodium ABG Potassium ABG Chloride ABG Glucose Carboxyhemoglobin Sodium Potassium Chloride Carbon Dioxide BUN Creatinine Glucose POC Glucose 249 H 257 H 270 H Lactic Acid Calcium Phosphorus Ferritin Total Bilirubin Direct Bilirubin AST ALT Lactate Dehydrogenase Total Creatine Kinase Troponin T Total Protein Albumin Triglycerides Arterial Blood Glucose Arterial Blood Ionized Calcium Urine pH Urine WBC (Auto) Urine Creatinine Salicylates Acetaminophen Coronavirus (PCR) 10/07/20 10/07/20 10/08/20 11:41 17:16 00:02 WBC RBC Hgb Hct MCHC RDW Lymph % (Auto) Yell % (Auto) Lymph # (Auto) Yell # (Auto) Seg Neutrophils % Seg Neuts % (Manual) Lymphocytes % (Manual) Monocytes % (Manual) Nucleated RBC % Seg Neutrophils # Seg Neutrophils # Man Lymphocytes # (Manual) Monocytes # (Manual) PT INR D-Dimer ABG pH POC ABG pCO2 POC ABG pO2 ABG pO2 ABG HCO3 ABG Base Excess ABG Hemoglobin ABG Oxyhemoglobin ABG Sodium ABG Potassium ABG Chloride ABG Glucose Carboxyhemoglobin Sodium Potassium Chloride Carbon Dioxide BUN Creatinine Glucose POC Glucose 274 H 246 H 234 H Lactic Acid Calcium Phosphorus Ferritin Total Bilirubin Direct Bilirubin AST ALT Lactate Dehydrogenase Total Creatine Kinase Troponin T Total Protein Albumin Triglycerides Arterial Blood Glucose Arterial Blood Ionized Calcium Urine pH Urine WBC (Auto) Urine Creatinine Salicylates Acetaminophen Coronavirus (PCR) 10/08/20 10/08/20 05:51 06:03 WBC RBC Hgb Hct MCHC RDW Lymph % (Auto) Yell % (Auto) Lymph # (Auto) Yell # (Auto) Seg Neutrophils % Seg Neuts % (Manual) Lymphocytes % (Manual) Monocytes % (Manual) Nucleated RBC % Seg Neutrophils # Seg Neutrophils # Man Lymphocytes # (Manual) Monocytes # (Manual) PT INR D-Dimer ABG pH POC ABG pCO2 POC ABG pO2 ABG pO2 ABG HCO3 ABG Base Excess ABG Hemoglobin ABG Oxyhemoglobin ABG Sodium ABG Potassium ABG Chloride ABG Glucose Carboxyhemoglobin Sodium 136 L Potassium Chloride Carbon Dioxide BUN 71 H Creatinine 4.5 H Glucose 240 H POC Glucose 235 H Lactic Acid Calcium Phosphorus Ferritin Total Bilirubin Direct Bilirubin AST ALT Lactate Dehydrogenase Total Creatine Kinase Troponin T Total Protein Albumin Triglycerides Arterial Blood Glucose Arterial Blood Ionized Calcium Urine pH Urine WBC (Auto) Urine Creatinine Salicylates Acetaminophen Coronavirus (PCR)
--- NOTE | 2020-10-08 16:02 | Progress Note ---
Assessment and Plan Impression: * Nonoliguric RYAN secondary to ATN * Severe hyperkalemia - resolved * COVID 19 PNA * s/p OOH cardiac arrest * Acute hypoxic respiratory failure * Acute encephalopathy * Seizure activity * Anemia * Hypernatremia * Fever --Vascath removed (Oct 04) --Blood cx: NGTD (Oct 04) Plan: * Last HD treatment was on Oct 05. Femoral vascath removed (placed on 09/08) due to fevers * No acute need for HD today. Patient w/ good UOP (1700ml yesterday), stable lytes. Will give free water with TF * Rate control per cardiology * Abx per primary team * Strict I/O * Keep MAP > 65 * Dose medications for renal function * Avoid potential nephrotoxins * Prognosis is poor. Discussed with via phone. Advised that given anoxic brain injury, patient is not an appropriate candidate for assisted dialysis. Discussed end of life/goals of care. states that she is not ready to "give up" on patient Subjective Date of service: 10/08/20 Principal diagnosis: Abnormal LFTs, s/p cardiac arrest, acute kidney injury with ATN Interval history: Patient remains unresponsive. No acute events. Remains afebrile. Objective - Vital Signs Vital signs: Vital Signs - 12hr 10/08/20 10/08/20 10/08/20 04:46 05:43 08:30 Temperature 98.6 F Pulse Rate 80 Pulse Rate [ From Monitor] Pulse Rate [ Left Dorsalis Pedis] Pulse Rate [ Right Dorsalis Pedis] Respiratory 20 Rate Blood Pressure 110/53 O2 Sat by Pulse 98 Oximetry O2 Sat by Pulse 97 Oximetry [ Assessment] 10/08/20 10/08/20 10/08/20 08:49 09:15 10:00 Temperature 98.4 F Pulse Rate 77 77 Pulse Rate [ 84 From Monitor] Pulse Rate [ 82 Left Dorsalis Pedis] Pulse Rate [ 82 Right Dorsalis Pedis] Respiratory 18 22 Rate Blood Pressure 115/59 O2 Sat by Pulse 94 97 Oximetry O2 Sat by Pulse Oximetry [ Assessment] - General Appearance General appearance: well-developed, well-nourished EENT: ATNC Neck: other (trach) Cardiology: regular, S1S2 Gastrointestinal: no tenderness, no distended, obese Integumentary: no rash, warm and dry Musculoskeletal: other (no edema) - Lab 10/06/20 10:12 10/08/20 06:03 Most recent lab results ABG pH 7.468 (7.320-7.450) H 10/02/20 10:16 ABG pCO2 33.4 mm Hg 09/11/20 05:40 ABG pO2 112.1 mm Hg (80.0-90.0) H 09/11/20 05:40 ABG HCO3 28.1 mmol/L (20.0-26.0) H 09/11/20 05:40 ABG O2 Saturation 98.4 % (95.0-99.0) 09/11/20 05:40 Calcium 9.7 mg/dL (8.4-10.2) 10/08/20 06:03 Phosphorus 8.00 mg/dL (2.5-4.5) H 09/08/20 12:02 Magnesium 1.80 mg/dL (1.7-2.3) 09/08/20 12:02 Urine Creatinine 182.4 mg/dL (0.1-20.0) H 09/08/20 Unknown Urine Sodium 40 mmol/L 09/08/20 Unknown Medications & Allergies - Medications Allergies/Adverse Reactions: Allergies No Known Allergies Allergy (Verified 09/21/20 21:00) Verified with , no known drug allergies. Home Medications: Home Medications Medication Instructions Recorded Confirmed Last Taken Type Albuterol Sulfate 60 mcg IH PRN 09/11/20 09/11/20 Unknown History Cholecalciferol (Vitamin D3) 25 tab PO DAILY 09/11/20 09/11/20 Unknown History Cozaar 25 tab PO DAILY 09/11/20 09/11/20 Unknown History HumaLOG 14 unit SQ AC 09/11/20 09/11/20 Unknown History Hydralazine HCl 50 tab PO TID 09/11/20 09/11/20 Unknown History Isosorbide Dinitrate 30 mg PO DAILY 09/11/20 09/11/20 Unknown History Lantus VIAL 54 units SQ HS 09/11/20 09/11/20 Unknown History Lasix 20 tab PO DAILY 09/11/20 09/11/20 Unknown History Nifedipine 30 tab PO DAILY 09/11/20 09/11/20 Unknown History Active Medications: Generic Name Dose Route Start Last Admin Trade Name Freq PRN Reason Stop Dose Admin Acetaminophen 650 mg 10/02/20 09:00 10/04/20 05:10 Acetaminophen 325 Mg/10.15 Ml Oral Liqd Unit Dose PO 650 mg Q4HR PRN Administration Non Cardiac Pain or Temp>100.5 Amiodarone HCl 200 mg 10/05/20 11:00 10/08/20 10:43 Amiodarone 200 Mg Tab PO 200 mg BID TAYLOR Administration Lipase/Protease/Amylase 1 each 09/09/20 09:40 Lipase 10,500/Protease 25,000/Amylase 43,750 (Units) Dr Armenta FEEDTUBE PRN PRN For Clogged Feeding Tube Hydralazine HCl 50 mg 09/23/20 14:00 10/08/20 13:35 Hydralazine 25 Mg Tab PO 50 mg Q8HR TAYLOR Administration Sodium Chloride 100 mls @ 999 mls/hr 09/09/20 13:36 Nacl 0.9% IV JAYJAY PRN Hypotension Cefepime HCl 2 gm in 100 mls @ 200 mls/hr 10/05/20 22:00 10/07/20 21:44 Cefepime/Ns 2 Gm/100 Ml IV 200 mls/hr Q24H TAYLOR Administration Protocol Insulin Glargine 30 units 10/07/20 10:00 10/08/20 10:44 Insulin Glargine 100 Units/Ml SUB-Q 30 units DAILY TAYLOR Administration Insulin Human Lispro 0 unit 09/12/20 12:00 10/08/20 12:28 Insulin Lispro 100 Unit/Ml SUB-Q 4 unit Q6HR TAYLOR Administration Protocol Lansoprazole 30 mg 09/11/20 11:00 10/08/20 10:43 Lansoprazole 30 Mg Solutab FEEDTUBE 30 mg BID TAYLOR Administration Levetiracetam 1,500 mg 09/28/20 10:00 10/08/20 10:43 Levetiracetam 500 Mg/5 Ml Oral Liqd PO 1,500 mg BID TAYLOR Administration Multivitamins 5 ml 09/09/20 12:00 10/08/20 10:45 Multivitamins 5 Ml Oral Liquid PO Not Given QDAY TAYLOR Ondansetron HCl 4 mg 09/07/20 17:55 09/19/20 04:00 Ondansetron 4 Mg/2 Ml Inj IV 4 mg Q8H PRN Administration Nausea And Vomiting Senna/Docusate Sodium 2 tab 09/20/20 11:00 Sennosides/Docusate Sodium 8.6/50 Mg Tab PO BID PRN Laxative Effect Simple Syrup 15 ml 09/09/20 09:40 09/17/20 17:43 Simple Syrup 15 Ml FEEDTUBE 15 ml PRN PRN Administration Hypoglycemia Simple Syrup 30 ml 09/09/20 09:40 Simple Syrup 15 Ml FEEDTUBE PRN PRN Hypoglycemia Sodium Bicarbonate 325 mg 09/09/20 09:40 Sodium Bicarbonate 325 Mg Tab FEEDTUBE PRN PRN For Clogged Feeding Tube Sodium Chloride 10 ml 09/07/20 22:00 10/08/20 10:44 Sodium Chloride 0.9% 10 Ml Flush Syringe IV 10 ml BID TAYLOR Administration Sodium Chloride 10 ml 09/07/20 17:55 Sodium Chloride 0.9% 10 Ml Flush Syringe IV PRN PRN LINE FLUSH Valproic Acid 1,000 mg 09/28/20 10:00 10/08/20 10:43 Valproic Acid 250 Mg/5 Ml Oral Liqd FEEDTUBE 1,000 mg BID TAYLOR Administration
[2020-10-08] MEDS: CEFEPIME/NS 2 GM/100 ML 2 GM/100 ML BAG IV SCH (22:59)
[2020-10-09 05:29] LABS: Calcium 9.6 mg/dL (8.4-10.2)
[2020-10-09] MEDS: INSULIN LISPRO 100 UNIT/ML SUB-Q SCH ×3 (06:40→17:24)
[2020-10-09] MEDS: hydrALAZINE 25 MG TAB PO SCH ×3 (06:40→23:09)
--- NOTE | 2020-10-09 08:40 | Progress Note ---
Subjective Principal diagnosis: Abnormal LFTs, s/p cardiac arrest, acute kidney injury with ATN Interval history: Patient was seen today for follow-up of multiple renal related issues, along with patient's nurse in the room Patient remains encephalopathic Interdisciplinary notes that also reviewed Events of 24 hours vitals labs intake output medications were reviewed Past medical history: Reviewed Family history: Reviewed Social history: Reviewed Allergies: Reviewed Physical examination: Vitals: Reviewed HEENT: No pallor or icterus oral mucosa moist Neck: Supple no JVD no thyromegaly Chest: Bilateral clear to auscultation anteriorly Heart: Regular rate and rhythm S1-S2 heard no S3-S4 Abdomen: Soft nontender no voluntary guarding rigidity rebound Extremity: Dry skin less than 1+ peripheral edema Psychiatric: No evidence of agitation and aggression noted Dermatology: No petechial rashes Labs and x-rays: Reviewed from today Assessment and plan Acute kidney injury currently nonoliguric likely felt to be due to acute tubular necrosis which has been felt to be multifactorial, Renal function needs to be monitored closely, no acute emergent indication for renal replacement therapy for now, monitor renal function as well as urine output, patient has very poor candidate for long-term dialysis in the outpatient setting Patient was temporarily on dialysis catheter was removed on September 08 due to fever Lasting dialysis noted to be on October 05 Renal function remained stable Patient will need ultrasonogram which will be ordered Does have underlying chronic kidney disease baseline creatinine around 1.8, upon admission the creatinine was around 5.6 on September 25, 2020 Anemia and renal failure: Will likely require erythropoietin depending on the CBC Severe hyperkalemia: Appears to have resolved continue to monitor, potassium peaked at 8.4 and generate 29th Status post out of hospital cardiac arrest, respiratory failure, encephalopathy, seizure disorder, Covert 19 pneumonia Overall prognosis appears to be very poor at this has been discussed by my partner over the phone We'll continue to follow and make recommendation for renal standpoint Objective - Vital Signs Vital signs: Vital Signs - 12hr 10/08/20 10/08/20 10/08/20 22:25 22:59 23:27 Temperature 98.6 F Pulse Rate 76 78 Respiratory 20 Rate Blood Pressure 129/63 O2 Sat by Pulse 96 95 Oximetry 10/09/20 10/09/20 10/09/20 04:13 06:40 08:35 Temperature 97.5 F L 98.9 F Pulse Rate 75 75 73 Respiratory 20 20 Rate Blood Pressure 121/59 125/71 O2 Sat by Pulse 95 97 Oximetry - Lab 10/06/20 10:12 10/11/20 04:50 Most recent lab results ABG pH 7.468 (7.320-7.450) H 10/02/20 10:16 ABG pCO2 33.4 mm Hg 09/11/20 05:40 ABG pO2 112.1 mm Hg (80.0-90.0) H 09/11/20 05:40 ABG HCO3 28.1 mmol/L (20.0-26.0) H 09/11/20 05:40 ABG O2 Saturation 98.4 % (95.0-99.0) 09/11/20 05:40 Calcium 9.6 mg/dL (8.4-10.2) 10/09/20 04:40 Phosphorus 8.00 mg/dL (2.5-4.5) H 09/08/20 12:02 Magnesium 1.80 mg/dL (1.7-2.3) 09/08/20 12:02 Urine Creatinine 182.4 mg/dL (0.1-20.0) H 09/08/20 Unknown Urine Sodium 40 mmol/L 09/08/20 Unknown Medications & Allergies - Medications Allergies/Adverse Reactions: Allergies No Known Allergies Allergy (Verified 09/21/20 21:00) Verified with , no known drug allergies. Home Medications: Home Medications Medication Instructions Recorded Confirmed Last Taken Type Albuterol Sulfate 60 mcg IH PRN 09/11/20 09/11/20 Unknown History Cholecalciferol (Vitamin D3) 25 tab PO DAILY 09/11/20 09/11/20 Unknown History Cozaar 25 tab PO DAILY 09/11/20 09/11/20 Unknown History HumaLOG 14 unit SQ AC 09/11/20 09/11/20 Unknown History Hydralazine HCl 50 tab PO TID 09/11/20 09/11/20 Unknown History Isosorbide Dinitrate 30 mg PO DAILY 09/11/20 09/11/20 Unknown History Lantus VIAL 54 units SQ HS 09/11/20 09/11/20 Unknown History Lasix 20 tab PO DAILY 09/11/20 09/11/20 Unknown History Nifedipine 30 tab PO DAILY 09/11/20 09/11/20 Unknown History Active Medications: Generic Name Dose Route Start Last Admin Trade Name Freq PRN Reason Stop Dose Admin Acetaminophen 650 mg 10/02/20 09:00 10/04/20 05:10 Acetaminophen 325 Mg/10.15 Ml Oral Liqd Unit Dose PO 650 mg Q4HR PRN Administration Non Cardiac Pain or Temp>100.5 Amiodarone HCl 200 mg 10/05/20 11:00 10/08/20 22:59 Amiodarone 200 Mg Tab PO 200 mg BID TAYLOR Administration Lipase/Protease/Amylase 1 each 09/09/20 09:40 Lipase 10,500/Protease 25,000/Amylase 43,750 (Units) Dr Armenta FEEDTUBE PRN PRN For Clogged Feeding Tube Hydralazine HCl 50 mg 09/23/20 14:00 10/09/20 06:40 Hydralazine 25 Mg Tab PO 50 mg Q8HR TAYLOR Administration Sodium Chloride 100 mls @ 999 mls/hr 09/09/20 13:36 Nacl 0.9% IV JAYJAY PRN Hypotension Cefepime HCl 2 gm in 100 mls @ 200 mls/hr 10/05/20 22:00 10/08/20 22:59 Cefepime/Ns 2 Gm/100 Ml IV 10/11/20 22:29 200 mls/hr Q24H TAYLOR Administration Protocol Insulin Glargine 30 units 10/07/20 10:00 10/08/20 10:44 Insulin Glargine 100 Units/Ml SUB-Q 30 units DAILY TAYLOR Administration Insulin Human Lispro 0 unit 09/12/20 12:00 10/09/20 06:40 Insulin Lispro 100 Unit/Ml SUB-Q 3 unit Q6HR TAYLOR Administration Protocol Lansoprazole 30 mg 09/11/20 11:00 10/08/20 22:59 Lansoprazole 30 Mg Solutab FEEDTUBE 30 mg BID TAYLOR Administration Levetiracetam 1,500 mg 09/28/20 10:00 10/08/20 22:59 Levetiracetam 500 Mg/5 Ml Oral Liqd PO 1,500 mg BID TAYLOR Administration Multivitamins 5 ml 09/09/20 12:00 10/08/20 10:45 Multivitamins 5 Ml Oral Liquid PO Not Given QDAY TAYLOR Ondansetron HCl 4 mg 09/07/20 17:55 09/19/20 04:00 Ondansetron 4 Mg/2 Ml Inj IV 4 mg Q8H PRN Administration Nausea And Vomiting Senna/Docusate Sodium 2 tab 09/20/20 11:00 Sennosides/Docusate Sodium 8.6/50 Mg Tab PO BID PRN Laxative Effect Simple Syrup 15 ml 09/09/20 09:40 09/17/20 17:43 Simple Syrup 15 Ml FEEDTUBE 15 ml PRN PRN Administration Hypoglycemia Simple Syrup 30 ml 09/09/20 09:40 Simple Syrup 15 Ml FEEDTUBE PRN PRN Hypoglycemia Sodium Bicarbonate 325 mg 09/09/20 09:40 Sodium Bicarbonate 325 Mg Tab FEEDTUBE PRN PRN For Clogged Feeding Tube Sodium Chloride 10 ml 09/07/20 22:00 10/08/20 23:00 Sodium Chloride 0.9% 10 Ml Flush Syringe IV 10 ml BID TAYLOR Administration Sodium Chloride 10 ml 09/07/20 17:55 Sodium Chloride 0.9% 10 Ml Flush Syringe IV PRN PRN LINE FLUSH Valproic Acid 1,000 mg 09/28/20 10:00 10/08/20 22:59 Valproic Acid 250 Mg/5 Ml Oral Liqd FEEDTUBE 1,000 mg BID TAYLOR Administration
[2020-10-09] MEDS: AMIODARONE 200 MG TAB PO SCH ×2 (09:21→23:07)
[2020-10-09] MEDS: LANSOPRAZOLE 30 MG SOLUTAB FEEDTUBE SCH ×2 (09:21→23:07)
[2020-10-09] MEDS: VALPROIC ACID 250 MG/5 ML ORAL LIQD FEEDTUBE SCH ×2 (09:21→23:06)
[2020-10-09] MEDS: levETIRAcetam 500 MG/5 ML ORAL LIQD PO SCH ×2 (09:21→23:07)
[2020-10-09] MEDS: INSULIN GLARGINE 100 UNITS/ML SUB-Q SCH (09:27)
[2020-10-09] MEDS: MULTIVITAMINS 5 ML ORAL LIQUID PO SCH (09:51)
--- NOTE | 2020-10-09 10:45 | Progress Note ---
Assessment and Plan Assessment and plan: #S/p cardiopulmonary arrest (out of hospital) Now poorly responsive with brain damage/anoxic brain injury #Toxic metabolic encephalopathy +/-anoxic injury Persists Now has trach and PEG #Acute hypoxic respiratory failure Continue oxygen supplementation #Nonoliguric acute kidney injury secondary to ATN. Patient status post emergent hemodialysis 09/08. Continue hemodialysis as scheduled. Last hemodialysis on 10/05. Nephrology on board #Seizure disorder Keppra 1500 twice daily Depakote 1000 mg twice daily #COVID-19 pneumonia Status post COVID-19 treatment #Fever Remains febrile Repeat blood cultures ordered Chest x-ray, urinalysis #Diabetes mellitus Glargine 25 units daily Lispro sliding scale #Hypertension Hydralazine 3 times daily #Atrial fibrillation with RVR Converted to sinus rhythm after initiation of amiodarone drip Continue p.o. amiodarone for now Holding therapeutic anticoagulation due to drop in hemoglobin #Acute on chronic anemia Continue to trend hemoglobin Repeat labs ordered today DVT prophylaxis-Lovenox Full code Disposition-family trying to consider hospice. Patient will need VA approval prior to this as per corrections caseworker. 09/15/2020. MRI brain for further evaluation. Continue AEDs of valproic acid and Keppra. Continue hemodialysis per nephrology recommendations. Overall prognosis remains guarded and poor. 09/16/2020. ID recommends continue to monitor patient off of antibiotics. Fever most likely of central etiology. Patient with questionable seizures versus myoclonus from anoxic brain injury. Patient unable to undergo MRI due to body habitus. Continue AEDs per neurology recommendations. Inflammatory markers elevated. Patient was recently hospitalized for COVID-19 pneumonia [facility] to being hospitalized [facility]. Patient not a candidate for remdesivir due to hepatic and renal failure. Viral hepatitis panel negative. Overall prognosis extremely poor. 09/17/2020. Fevers have resolved over the past 48 hours. Continue to monitor off antibiotics per ID recommendations. Patient with questionable seizures versus myoclonus from anoxic brain injury. Patient unable to undergo MRI due to body habitus. EEG is nonspecific but given CT of head findings consistent with anoxic encephalopathy, brain injury. Continue AEDs per neurology recommendations. Inflammatory markers elevated. Patient was recently hospitalized for COVID-19 pneumonia at the [facility] to being hospitalized [facility]. Patient not a candidate for remdesivir due to hepatic and renal failure. Viral hepatitis panel negative. Patient is s/p emergent HD on Friday (hyperK) and Friday - 09/08. Patient also S/p HD 09/15. Continue hemodialysis per nephrology recommendations. Patient currently on AC/PRVC mode ventilation with rate of 30, tidal volume 475, FiO2 30% and PEEP of 6. As stated in neuro note, overall prognosis is very poor. 09/18/2020. Fevers have resolved over the past 72 hours. Continue to monitor off antibiotics per ID recommendations. Leukocytosis persistent for the past 4 days. Patient with questionable seizures/myoclonus from anoxic brain injury. Patient unable to undergo MRI due to body habitus. EEG is nonspecific but given CT of head findings consistent with anoxic encephalopathy, brain injury. Continue AEDs per neurology recommendations. Inflammatory markers elevated. Patient was recently hospitalized for COVID-19 pneumonia [facility] being [facility]. Patient not a candidate for remdesivir due to hepatic and renal failure. Viral hepatitis panel negative. Patient currently on AC/PRVC mode ventilation with rate of 30, tidal volume 475, FiO2 30% and PEEP of 6. Overall prognosis remains guarded/poor. 09/19/2020 Fevers have resolved over the past 4 days. Continue to monitor off antibiotics per ID recommendations. Leukocytosis persistent for the past 4 days. Patient with questionable seizures/myoclonus from anoxic brain injury. Patient unable to undergo MRI due to body habitus. EEG is nonspecific but given CT of head findings consistent with anoxic encephalopathy, brain injury. Continue AEDs per neurology recommendations. Inflammatory markers elevated. Patient was recently hospitalized for COVID-19 pneumonia [facility] being [facility]. Patient not a candidate for remdesivir due to hepatic and renal failure. Viral hepatitis panel negative. Patient currently on AC/PRVC mode ventilation with rate of 30, tidal volume 475, FiO2 30% and PEEP of 6. Overall prognosis remains guarded/poor. 09/20/2020 -Surgery consulted for PEG and trach, will continue to follow. 09/21/2020; patient will have PEG and trach by Dr. hayes today. Prognosis is poor. Continue with current management. Oxygen Equipment Technician is following for vent management. 09/22/2020; patient had PEG and trach yesterday. 09/23/2020; continue PEG Tube Feeding. 09/24/2020; continue PEG tube feeding, patient is on Keppra, lorazepam and phenytoin per neurology recommendation. Patient is on hemodialysis and ne phrology is following. Management of mechanical ventilation for CCM. 09/25/2020. Continue PEG tube feeding, patient is on Keppra, lorazepam and phenytoin per neurology recommendation. Patient is on hemodialysis and nephrology is following. Management of mechanical ventilation for CCM. Continue PSV/CPAP 12/6. Continue tracheostomy care, secretion control and airway management. 09/26/2020. Patient has tolerated PSV for approximately 48 hours. I discussed with pulmonary possibility of T-piece today. Continue tracheostomy care, secretion control and airway management. If patient tolerates T-piece trials, patient will be transferred to the floor. Continue AEDs of Keppra and phenytoin as well as Ativan as needed per neurology recommendations. Continue hemodialysis per nephrology. Continue TF with aspiration precautions. 09/27/2020. Patient continues to tolerate PSV 12/6 at 30% FiO2. T-piece trials per pulmonary. Continue tracheostomy care, secretion control and airway manag ement. Continue AEDs of Keppra and phenytoin as well as Ativan as needed per neurology recommendations. Continue hemodialysis per nephrology. Continue TF with aspiration precautions. 09/28/2020. Patient for T-piece trials per pulmonary. Continue hemodialysis per nephrology. Continue tracheostomy care, secretion control and airway management. Continue AEDs of Keppra and phenytoin as well as Ativan as needed per neurology recommendations. Continue TF with aspiration precautions. 09/29/2020, continue T-piece trials per pulmonary. Continue hemodialysis per nephrology. Continue strict I/O's and labs daily. Monitor for renal recovery. 09/30/2020. Continue T-piece trials per pulmonary recommendations. Continue tracheostomy care, secretion control and airway management. Continue hemodialy sis per nephrology. Tight glycemic control. Continue TF with aspiration precautions. 10/01/2020. Patient with T-piece trials and tolerating. Wean to trach collar per pulmonary. Continue tracheostomy care, secretion control and airway management. Continue hemodialysis per nephrology. Tight glycemic control. Continue TF with aspiration precautions. Case management consultation for placement 10/02/20. Continue T-piece trials per pulmonary recommendations. Continue tracheostomy care, secretion control and airway management. Continue hemodialysis per nephrology. Tight glycemic control. Continue TF with aspiration precautions. 10/03/2020. Continue T-piece trials per pulmonology. Continue tracheostomy care, secretion control and airway management. Continue modalities per nephrology. Discharge planning underway. Needs placement to SNF versus hospice. 10/04/2020. Patient remained febrile with temperature 101 F. Ordered blood culture, chest x-ray, urinalysis. Plan to start antibiotics after blood cultures been obtained. Patient remains hemodynamically stable. Plan to dis charge to SNF versus inpatient hospice on the way. 10/05/2020. Started on antibiotics yesterday. Awaiting blood culture. He developed atrial fibrillation with RVR and was placed on amiodaron see awaiting placement. E drip with subsequent conversion to SR. Now on amiodarone PO. Discussed with patients - she would like him to go inpatient hospice or a care home care facility. As per CM, VA not approving LTC placement at this time. As is still undecided about hospice, inpatient hospice is not accepting h im at this time. has placed a referral to a SNF with inpatient dialysis. Awai keving response from the SNF. 10/06/2020. Hb drop noted. Not on therapeutic anticoagulation [atrial f ibrillation] due to duration of atrial fibrillation [lasted less than 2 hours] and also drop in hemoglobin. Continue to monitor hemoglobin. Repeat labs ordered today. Vitals stable. Discussed with patient's yesterday 10/07. HR is controlled. Pending placement. As per CM notes, patient denied acceptance at a [facility] as he has VA insurance. Will discuss with CM to know other options are available. 10/08. Vitals stable. Will discuss discharge plan with spouse today as it looks like only option left is inpatient hospice. 10/09. Vitals stable. Will discuss discharge plan with spouse today as it looks like only option left is inpatient hospice History Interval history: 65 y/o male with out of hospital cardiac arrest, acute hypoxic respiratory failure and COVID-19 infection. Hospitalist Physical - Physical exam Narrative exam: VITAL SIGNS: Reviewed. GENERAL: Not responsive HEAD: No signs of head trauma. EYES: Closed MOUTH: Oropharynx is normal. NECK: No adenopathy, no JVD. CHEST: Diminished breath sounds with crackles bilaterally CARDIAC: normal S1 and S2, without murmurs, gallops, or rubs. ABDOMEN: Soft, non tender and non distended. No rebound or guarding, and no masses palpated. Bowel Sounds normal. MUSCULOSKELETAL: Bilateral leg edema NEUROLOGIC EXAM: Not responsive SKIN: No obvious lesions - Constitutional Vitals: Temp Pulse Resp BP Pulse Ox 98.9 F 73 20 125/71 97 10/09/20 08:35 10/09/20 08:35 10/09/20 08:35 10/09/20 08:35 10/09/20 08:50 HEART Score - HEART Score Troponin: Troponin T 0.076 ng/mL (0.00-0.029) H 09/07/20 14:00 Results - Labs CBC & Chem 7: 10/06/20 10:12 10/10/20 05:46 Labs: Laboratory Last Values WBC 7.1 K/mm3 (4.5-11.0) 10/06/20 10:12 RBC 2.92 M/mm3 (3.65-5.03) L 10/06/20 10:12 Hgb 8.4 gm/dl (11.8-15.2) L 10/06/20 10:12 Hct 24.7 % (35.5-45.6) L 10/06/20 10:12 MCV 85 fl (84-94) 10/06/20 10:12 MCH 29 pg (28-32) 10/06/20 10:12 MCHC 34 % (32-34) 10/06/20 10:12 RDW 18.1 % (13.2-15.2) H 10/06/20 10:12 Plt Count 182 K/mm3 (140-440) 10/06/20 10:12 Lymph % (Auto) 27.0 % (13.4-35.0) 10/01/20 04:33 [place] % (Auto) Artificial Flower Maker 10/06/20 10:12 Eos % (Auto) 1.4 % (0.0-4.3) 10/01/20 04:33 Baso % (Auto) 0.3 % (0.0-1.8) 10/01/20 04:33 Lymph # (Auto) 1.9 K/mm3 (1.2-5.4) 10/01/20 04:33 [place] # (Auto) 1.2 K/mm3 (0.0-0.8) H 10/01/20 04:33 Eos # (Auto) 0.1 K/mm3 (0.0-0.4) 10/01/20 04:33 Baso # (Auto) 0.0 K/mm3 (0.0-0.1) 10/01/20 04:33 Add Manual Diff Complete 10/06/20 10:12 Total Counted 100 10/06/20 10:12 Seg Neutrophils % 54.7 % (40.0-70.0) 10/01/20 04:33 Seg Neuts % (Manual) 65.0 % (40.0-70.0) 10/06/20 10:12 Band Neutrophils % 8.0 % 09/30/20 06:57 Lymphocytes % (Manual) 26.0 % (13.4-35.0) 10/06/20 10:12 Monocytes % (Manual) 6.0 % (0.0-7.3) 10/06/20 10:12 Eosinophils % (Manual) 3.0 % (0.0-4.3) 10/06/20 10:12 Basophils % (Manual) 1.0 % (0.0-1.8) 09/30/20 06:57 Metamyelocytes % 2.0 % 09/08/20 Unknown Promyelocytes % 0 % 10/04/20 10:32 Nucleated RBC % Not Reportable 10/06/20 10:12 Seg Neutrophils # 3.9 K/mm3 (1.8-7.7) 10/01/20 04:33 Seg Neutrophils # Man 4.6 K/mm3 (1.8-7.7) 10/06/20 10:12 Band Neutrophils # 0.0 K/mm3 10/06/20 10:12 Lymphocytes # (Manual) 1.8 K/mm3 (1.2-5.4) 10/06/20 10:12 Abs React Lymphs (Man) 0.0 K/mm3 10/06/20 10:12 Monocytes # (Manual) 0.4 K/mm3 (0.0-0.8) 10/06/20 10:12 Eosinophils # (Manual) 0.2 K/mm3 (0.0-0.4) 10/06/20 10:12 Basophils # (Manual) 0.0 K/mm3 (0.0-0.1) 10/06/20 10:12 Metamyelocytes # 0.0 K/mm3 10/06/20 10:12 Myelocytes # 0.0 K/mm3 10/06/20 10:12 Promyelocytes # 0.0 K/mm3 10/06/20 10:12 Blast Cells # 0.0 K/mm3 10/06/20 10:12 WBC Morphology Not Reportable 10/06/20 10:12 Hypersegmented Neuts Not Reportable 10/06/20 10:12 Hyposegmented Neuts Not Reportable 10/06/20 10:12 Hypogranular Neuts Not Reportable 10/06/20 10:12 Smudge Cells Not Reportable 10/06/20 10:12 Toxic Granulation Not Reportable 10/06/20 10:12 Toxic Vacuolation Not Reportable 10/06/20 10:12 Dohle Bodies Not Reportable 10/06/20 10:12 Pelger-Huet Anomaly Not Reportable 10/06/20 10:12 Justus Rods Not Reportable 10/06/20 10:12 Platelet Estimate Consistent w auto 10/06/20 10:12 Clumped Platelets Not Reportable 10/06/20 10:12 Plt Clumps, EDTA Not Reportable 10/06/20 10:12 Large Platelets Not Reportable 10/06/20 10:12 Giant Platelets Not Reportable 10/06/20 10:12 Platelet Satelliting Not Reportable 10/06/20 10:12 Plt Morphology Comment Not Reportable 10/06/20 10:12 RBC Morphology Not Reportable 10/06/20 10:12 Dimorphic RBCs Not Reportable 10/06/20 10:12 Polychromasia Not Reportable 10/06/20 10:12 Hypochromasia Not Reportable 10/06/20 10:12 Poikilocytosis Not Reportable 10/06/20 10:12 Anisocytosis 1+ 10/06/20 10:12 Microcytosis Not Reportable 10/06/20 10:12 Macrocytosis Not Reportable 10/06/20 10:12 Spherocytes Not Reportable 10/06/20 10:12 Pappenheimer Bodies Not Reportable 10/06/20 10:12 Sickle Cells Not Reportable 10/06/20 10:12 Target Cells Not Reportable 10/06/20 10:12 Tear Drop Cells Not Reportable 10/06/20 10:12 Ovalocytes Not Reportable 10/06/20 10:12 Helmet Cells Not Reportable 10/06/20 10:12 Batres-Randolph Bodies Not Reportable 10/06/20 10:12 [place] Rings Not Reportable 10/06/20 10:12 [place] Cells Not Reportable 10/06/20 10:12 Bite Cells Not Reportable 10/06/20 10:12 Crenated Cell Not Reportable 10/06/20 10:12 Elliptocytes Not Reportable 10/06/20 10:12 Acanthocytes (Spur) Not Reportable 10/06/20 10:12 Rouleaux Not Reportable 10/06/20 10:12 Hemoglobin C Crystals Not Reportable 10/06/20 10:12 Schistocytes Not Reportable 10/06/20 10:12 Malaria parasites Not Reportable 10/06/20 10:12 [place] Bodies Not Reportable 10/06/20 10:12 Hem Pathologist Commnt No 10/06/20 10:12 PT 16.1 Sec. (12.2-14.9) H 09/12/20 04:00 INR 1.31 (0.87-1.13) H 09/12/20 04:00 APTT 32.4 Sec. (24.2-36.6) 09/09/20 10:00 D-Dimer 8315.85 ng/mlDDU (0-234) H 09/07/20 14:00 ABG pH 7.468 (7.320-7.450) H 10/02/20 10:16 POC ABG pCO2 37.1 mmHg (32.0-48.0) 10/02/20 10:16 ABG pCO2 33.4 mm Hg 09/11/20 05:40 POC ABG pO2 72.9 mmHg (83-108) L 10/02/20 10:16 ABG pO2 112.1 mm Hg (80.0-90.0) H 09/11/20 05:40 POC ABG HCO3 26.3 10/02/20 10:16 ABG HCO3 28.1 mmol/L (20.0-26.0) H 09/11/20 05:40 ABG O2 Saturation 98.4 % (95.0-99.0) 09/11/20 05:40 ABG O2 Content 11.6 (0.0-44) 09/11/20 05:40 POC ABG Base Excess 2.6 10/02/20 10:16 ABG Base Excess 5.4 mmol/L (-2.0-3.0) H 09/11/20 05:40 ABG Hemoglobin 10.1 (12.0-17.5) L 10/02/20 10:16 ABG Oxyhemoglobin 93.1 (94-98) L 10/02/20 10:16 ABG Carboxyhemoglobin 1.2 % (0.0-5.0) 09/11/20 05:40 ABG Methemoglobin 0.3 (0.0-1.5) 10/02/20 10:16 ABG Sodium 138.5 mmol/L (136.0-145.0) 10/02/20 10:16 ABG Potassium 3.9 mmol/L (3.40-4.50) 10/02/20 10:16 ABG Chloride 108.0 mmol/L (98-107) H 10/02/20 10:16 ABG Glucose 289 mg/dL (65-95) H 10/02/20 10:16 Oxyhemoglobin 96.8 % (95.0-99.0) 09/11/20 05:40 Carboxyhemoglobin 0.8 (0.5-1.5) 10/02/20 10:16 FiO2 35 10/02/20 10:16 Sodium 135 mmol/L (137-145) L 10/09/20 04:40 Potassium 3.9 mmol/L (3.6-5.0) 10/09/20 04:40 Chloride 97.9 mmol/L (98-107) L 10/09/20 04:40 Carbon Dioxide 26 mmol/L (22-30) 10/09/20 04:40 Anion Gap 15 mmol/L 10/09/20 04:40 BUN 80 mg/dL (9-20) H 10/09/20 04:40 Creatinine 4.6 mg/dL (0.8-1.3) H 10/09/20 04:40 Estimated GFR 16 ml/min 10/09/20 04:40 BUN/Creatinine Ratio 17 % 10/09/20 04:40 Glucose 211 mg/dL (75-100) H 10/09/20 04:40 POC Glucose 190 mg/dL (70-105) H 10/09/20 04:57 Lactic Acid 2.90 mmol/L (0.7-2.0) H* 09/17/20 13:52 Calcium 9.6 mg/dL (8.4-10.2) 10/09/20 04:40 Phosphorus 8.00 mg/dL (2.5-4.5) H 09/08/20 12:02 Magnesium 1.80 mg/dL (1.7-2.3) 09/08/20 12:02 Ferritin > 2000.0 ng/mL (30.0-300.0) H 09/07/20 14:00 Total Bilirubin 0.30 mg/dL (0.1-1.2) 10/06/20 10:12 Direct Bilirubin 0.5 mg/dL (0-0.2) H 09/08/20 05:00 Indirect Bilirubin 0.5 mg/dL 09/08/20 05:00 AST 52 units/L (5-40) H 10/06/20 10:12 ALT 28 units/L (7-56) 10/06/20 10:12 Alkaline Phosphatase 94 units/L (35-129) 10/06/20 10:12 Ammonia 50.0 umol/L (25-60) 09/07/20 14:00 Lactate Dehydrogenase 882 units/L (91-180) H 09/07/20 14:00 Total Creatine Kinase 477 units/L (55-170) H 09/07/20 14:00 Troponin T 0.076 ng/mL (0.00-0.029) H 09/07/20 14:00 C-Reactive Protein 1.10 mg/dL (0.00-1.30) 09/07/20 14:00 Total Protein 8.4 g/dL (6.3-8.2) H 10/06/20 10:12 Albumin 2.3 g/dL (3.9-5) L 10/06/20 10:12 Albumin/Globulin Ratio 0.4 % 10/06/20 10:12 Triglycerides 220 mg/dL (2-149) H 09/12/20 Unknown Procalcitonin 1.16 ng/mL (<0.15) 10/04/20 10:32 TSH 2.290 mlU/mL (0.270-4.200) 09/07/20 14:00 Arterial Blood Glucose 289 mg/dL (65-95) H 10/02/20 10:16 Arterial Blood Ionized Calcium 5.2 mg/dL (4.6-5.3) 10/02/20 10:16 Urine Color Yellow (Yellow) 10/05/20 09:15 Urine Turbidity Slightly-cloudy (Clear) 10/05/20 09:15 Urine pH 5.0 (5.0-7.0) 10/05/20 09:15 Ur Specific [place] 1.015 (1.003-1.030) 10/05/20 09:15 Urine Protein 30 mg/dl mg/dL (Negative) 10/05/20 09:15 Urine Glucose (UA) Neg mg/dL (Negative) 10/05/20 09:15 Urine Ketones Neg mg/dL (Negative) 10/05/20 09:15 Urine Blood Sm (Negative) 10/05/20 09:15 Urine Nitrite Neg (Negative) 10/05/20 09:15 Urine Bilirubin Neg (Negative) 10/05/20 09:15 Urine Urobilinogen < 2.0 mg/dL (<2.0) 10/05/20 09:15 Ur Leukocyte Esterase Neg (Negative) 10/05/20 09:15 Urine WBC (Auto) 13.0 /HPF (0.0-6.0) H 10/05/20 09:15 Urine RBC (Auto) 19.0 /HPF (0.0-6.0) 10/05/20 09:15 U Epithel Cells (Auto) 6.0 /HPF (0-13.0) 10/05/20 09:15 Urine Bacteria (Auto) 2+ /HPF (Negative) 10/05/20 09:15 Hyaline Casts 1 /LPF 10/05/20 09:15 Urine Mucus Few /HPF 10/05/20 09:15 Urine Yeast (Budding) 3+ /HPF 10/05/20 09:15 Urine Sperm 3+ /HPF (LIFE CYCLE ASSESSMENT ANALYST) 09/07/20 13:08 Urine Creatinine 182.4 mg/dL (0.1-20.0) H 09/08/20 Unknown Urine Sodium 40 mmol/L 09/08/20 Unknown Salicylates < 0.3 mg/dL (2.8-20.0) L 09/07/20 14:00 Acetaminophen 5.0 ug/mL (10.0-30.0) L 09/07/20 14:00 Valproic Acid 58.9 ug/mL (50-100) 10/04/20 04:55 Plasma/Serum Alcohol < 0.01 % (0-0.07) 09/07/20 14:00 Coronavirus (PCR) Negative (Negative) 10/03/20 10:01 Hepatitis A IgM Ab Non-reactive (NonReactive) 09/07/20 14:00 Hep Bs Antigen Non-reactive (Negative) 09/07/20 14:00 Hep B Core IgM Ab Non-reactive (NonReactive) 09/07/20 14:00 Hepatitis C Antibody Non-reactive (NonReactive) 09/07/20 14:00 HIV 1&2 Antibody Rapid Non react (Non React) 09/07/20 14:34 HIV P24 Antigen Non react (Non React) 09/07/20 14:34 Blood Type O POSITIVE 09/09/20 10:00 Antibody Screen Negative 09/07/20 14:00 Microbiology: Microbiology 10/04/20 10:32 Peripheral/Venous Blood Culture - Preliminary NO GROWTH AFTER 4 DAYS 10/04/20 10:32 Peripheral/Venous Blood Culture - Preliminary NO GROWTH AFTER 4 DAYS Mae/IV: Voiding Method Condom Catheter IV Catheter Type [Right Triple Lumen Cath Femoral] IV Catheter Type [Left Peripheral IV Antecubital] IV Catheter Type [Left Hand] Peripheral IV IV Catheter Type [Right Peripheral IV Antecubital] Active Medications - Current Medications Current Medications: Generic Name Dose Route Start Last Admin Trade Name Freq PRN Reason Stop Dose Admin Acetaminophen 650 mg 10/02/20 09:00 10/04/20 05:10 Acetaminophen 325 Mg/10.15 Ml Oral Liqd Unit Dose PO 650 mg Q4HR PRN Administration Non Cardiac Pain or Temp>100.5 Amiodarone HCl 200 mg 10/05/20 11:00 10/09/20 09:21 Amiodarone 200 Mg Tab PO 200 mg BID TAYLOR Administration Lipase/Protease/Amylase 1 each 09/09/20 09:40 Lipase 10,500/Protease 25,000/Amylase 43,750 (Units) Dr Armenta FEEDTUBE PRN PRN For Clogged Feeding Tube Hydralazine HCl 50 mg 09/23/20 14:00 10/09/20 06:40 Hydralazine 25 Mg Tab PO 50 mg Q8HR TAYLOR Administration Sodium Chloride 100 mls @ 999 mls/hr 09/09/20 13:36 Nacl 0.9% IV JAYJAY PRN Hypotension Cefepime HCl 2 gm in 100 mls @ 200 mls/hr 10/05/20 22:00 10/08/20 22:59 Cefepime/Ns 2 Gm/100 Ml IV 10/11/20 22:29 200 mls/hr Q24H TAYLOR Administration Protocol Insulin Glargine 30 units 10/07/20 10:00 10/09/20 09:27 Insulin Glargine 100 Units/Ml SUB-Q 30 units DAILY TAYLOR Administration Insulin Human Lispro 0 unit 09/12/20 12:00 10/09/20 06:40 Insulin Lispro 100 Unit/Ml SUB-Q 3 unit Q6HR TAYLOR Administration Protocol Lansoprazole 30 mg 09/11/20 11:00 10/09/20 09:21 Lansoprazole 30 Mg Solutab FEEDTUBE 30 mg BID TAYLOR Administration Levetiracetam 1,500 mg 09/28/20 10:00 10/09/20 09:21 Levetiracetam 500 Mg/5 Ml Oral Liqd PO 1,500 mg BID TAYLOR Administration Multivitamins 5 ml 09/09/20 12:00 10/09/20 09:51 Multivitamins 5 Ml Oral Liquid PO Not Given QDAY [facility] Ondansetron HCl 4 mg 09/07/20 17:55 09/19/20 04:00 Ondansetron 4 Mg/2 Ml Inj IV 4 mg Q8H PRN Administration Nausea And Vomiting Senna/Docusate Sodium 2 tab 09/20/20 11:00 Sennosides/Docusate Sodium 8.6/50 Mg Tab PO BID PRN Laxative Effect Simple Syrup 15 ml 09/09/20 09:40 09/17/20 17:43 Simple Syrup 15 Ml FEEDTUBE 15 ml PRN PRN Administration Hypoglycemia Simple Syrup 30 ml 09/09/20 09:40 Simple Syrup 15 Ml FEEDTUBE PRN PRN Hypoglycemia Sodium Bicarbonate 325 mg 09/09/20 09:40 Sodium Bicarbonate 325 Mg Tab FEEDTUBE PRN PRN For Clogged Feeding Tube Sodium Chloride 10 ml 09/07/20 22:00 10/09/20 09:21 Sodium Chloride 0.9% 10 Ml Flush Syringe IV 10 ml BID TAYLOR Administration Sodium Chloride 10 ml 09/07/20 17:55 Sodium Chloride 0.9% 10 Ml Flush Syringe IV PRN PRN LINE FLUSH Valproic Acid 1,000 mg 09/28/20 10:00 10/09/20 09:21 Valproic Acid 250 Mg/5 Ml Oral Liqd FEEDTUBE 1,000 mg BID TAYLOR Administration Nutrition/Malnutrition Assess - Dietary Evaluation Nutrition/Malnutrition Findings: Nutrition Notes Start: 09/08/20 12:01 Freq: Status: Active Protocol: Document 10/06/20 10:48 [email or web address] (Rec: 10/06/20 11:09 [email or web address] [id number]) Co-Sign 10/06/20 10:48 [email or web address] Nutrition Notes Initial or Follow up Reassessment Current Diagnosis Acute Kidney Injury, Respiratory Failure Other Pertinent Diagnosis on HD, cardiac arrest, COVID ( +), metabolic encephalopathy, pneu Current Diet Nepro 1.8 at 45 mL/hr (goal rate) Labs/Tests BUN 55 Na 135 BG 304 Pertinent Medications Humalog 6 units Lantus 25 units Height 6 ft Weight 145.18 kg [place] Body Weight (kg) 80.90 BMI 43.4 Weight Status Morbidly Obese Subjective/Other Information F/U TF tolerance. Spoke with RN, Pt is tolerating TF at goal rate of 45ml/hr. Percent of energy/protein needs met: 100%/64% Burn Absent Trauma Absent GI Symptoms None Difficulty In Swallowing Food Allergy No Skin Integrity/Comment pressure ulcer to lips Current % PO Negligible Minimum of two criteria No Fluid Accumulation Mild (non-severe) #3 Nutrition Diagnosis Increased nutrient needs ( specify in comment below) Diagnosis Progress(for reassessment Continues documentation) #2 Nutrition Diagnosis Increased nutrient needs ( specify in comment below) As Evidenced by Signs and Symptoms Pt on HD and not meeting protein needs Diagnosis Progress(for reassessment Continues documentation) #1 Nutrition Diagnosis Inadequate oral intake Diagnosis Progress(for reassessment Continues documentation) Is patient on ventilator? No Is Patient Ambulatory and/or Out of Bed No REE-([place]-confined to bed) 2740.164 Kcal/Kg value to use for calculation 13 Approximate Energy Requirements Using 1887 kcal/Kg Calculation Used for Recommendations Kcal/kg Additional Notes PRO needs: >136g (>1.2g/kg AdjBW 113.04kg) Fluid needs are 1000-1500ml Nutrition Intervention Change Diet Order: TF Nutrition Support: Nepro at 45ml/hr Flush 120ml q4h Kcal 1,944 Protein (gm) 87 Fluid (mL) 785 Goal #1 Meet kcal and protein needs as best as possible via TF Anticipated Discharge Needs: TF Follow-Up By: 10/10/20 Additional Comments F/U stable TF
--- NOTE | 2020-10-09 18:35 | Ultrasound Report ---
. ULTRASOUND RENAL INDICATION / CLINICAL INFORMATION: renal failure, must be done today. COMPARISON: None available. FINDINGS: RIGHT KIDNEY: Length = 12.9 cm. - Echogenicity: Normal. - Cortical Thickness: Normal. - Hydronephrosis: None. - Cyst or mass: 1.8 cm simple cyst at the medial interpolar region. - Stones: None seen. LEFT KIDNEY: Length = 11.3 cm. - Echogenicity: Normal. - Cortical Thickness: Normal. - Hydronephrosis: None. - Cyst or mass: 1.6 cm simple cyst at the inferior pole. - Stones: None seen. URINARY BLADDER: No significant abnormality. FREE FLUID: None. ADDITIONAL FINDINGS: None. IMPRESSION: 1. Small bilateral simple renal cysts. 2. Otherwise satisfactory sonographic appearance of the kidneys. Signer Name: Florentin Akers MD Signed: 10/09/2020 6:31 PM Workstation Name: [id number]
[2020-10-09] MEDS: CEFEPIME/NS 2 GM/100 ML 2 GM/100 ML BAG IV SCH (23:04)
[2020-10-10] MEDS: INSULIN LISPRO 100 UNIT/ML SUB-Q SCH ×4 (00:15→17:11)
[2020-10-10 06:34] LABS: Calcium 9.5 mg/dL (8.4-10.2)
[2020-10-10] MEDS: hydrALAZINE 25 MG TAB PO SCH ×3 (06:42→22:08)
--- NOTE | 2020-10-10 08:29 | Progress Note ---
Subjective Principal diagnosis: Abnormal LFTs, s/p cardiac arrest, acute kidney injury with ATN Interval history: Patient was seen today for follow-up of multiple renal related issues, today patient appeared to be doing poorly No change in mental status Patient remains encephalopathic Interdisciplinary notes that also reviewed Events of 24 hours vitals labs intake output medications were reviewed Past medical history: Reviewed Family history: Reviewed Social history: Reviewed Allergies: Reviewed Physical examination: Vitals: Reviewed HEENT: No pallor or icterus oral mucosa moist Neck: Supple no JVD no thyromegaly Chest: Bilateral clear to auscultation anteriorly Heart: Regular rate and rhythm S1-S2 heard no S3-S4 Abdomen: Soft nontender no voluntary guarding rigidity rebound Extremity: Dry skin less than 1+ peripheral edema Psychiatric: No evidence of agitation and aggression noted Dermatology: No petechial rashes Labs and x-rays: Reviewed from today Assessment and plan Acute kidney injury currently nonoliguric likely felt to be due to acute tubular necrosis which has been felt to be multifactorial, Renal function needs to be monitored closely, no acute emergent indication for renal replacement therapy for now, monitor renal function as well as urine output, patient has very poor candidate for long-term dialysis in the outpatient setting Patient was temporarily on dialysis catheter was removed on September 08 due to fever Lasting dialysis noted to be on October 05 Renal function remained stable Patient will need ultrasonogram which will be ordered Does have underlying chronic kidney disease baseline creatinine around 1.8, upon admission the creatinine was around 5.6 on September 25, 2020 Anemia and renal failure: Will likely require erythropoietin depending on the CBC Severe hyperkalemia: Appears to have resolved continue to monitor, potassium peaked at 8.4 and generate 29th Status post out of hospital cardiac arrest, respiratory failure, encephalopathy, seizure disorder, Covid19 pneumonia Overall prognosis appears to be very poor at this has been discussed by my partner over the phone We'll continue to follow and make recommendation for renal standpoint Objective - Vital Signs Vital signs: Vital Signs - 12hr 10/09/20 10/09/20 10/09/20 20:36 20:57 23:09 Temperature 97.3 F L Pulse Rate 68 Respiratory 22 Rate Blood Pressure 121/61 Blood Pressure 121/61 [Right] O2 Sat by Pulse 93 96 Oximetry O2 Sat by Pulse 96 Oximetry [ Assessment] 10/09/20 10/10/20 10/10/20 23:56 05:35 06:42 Temperature 96.6 F L 98.9 F Pulse Rate 69 67 67 Respiratory 30 H 24 Rate Blood Pressure Blood Pressure 130/63 135/64 [Right] O2 Sat by Pulse 92 95 Oximetry O2 Sat by Pulse Oximetry [ Assessment] 10/10/20 10/10/20 08:25 08:27 Temperature Pulse Rate Respiratory Rate Blood Pressure Blood Pressure [Right] O2 Sat by Pulse 97 Oximetry O2 Sat by Pulse 97 Oximetry [ Assessment] - Lab 10/06/20 10:12 10/11/20 04:50 Most recent lab results ABG pH 7.468 (7.320-7.450) H 10/02/20 10:16 ABG pCO2 33.4 mm Hg 09/11/20 05:40 ABG pO2 112.1 mm Hg (80.0-90.0) H 09/11/20 05:40 ABG HCO3 28.1 mmol/L (20.0-26.0) H 09/11/20 05:40 ABG O2 Saturation 98.4 % (95.0-99.0) 09/11/20 05:40 Calcium 9.5 mg/dL (8.4-10.2) 10/10/20 05:46 Phosphorus 8.00 mg/dL (2.5-4.5) H 09/08/20 12:02 Magnesium 1.80 mg/dL (1.7-2.3) 09/08/20 12:02 Urine Creatinine 182.4 mg/dL (0.1-20.0) H 09/08/20 Unknown Urine Sodium 40 mmol/L 09/08/20 Unknown Medications & Allergies - Medications Allergies/Adverse Reactions: Allergies No Known Allergies Allergy (Verified 09/21/20 21:00) Verified with , no known drug allergies. Home Medications: Home Medications Medication Instructions Recorded Confirmed Last Taken Type Albuterol Sulfate 60 mcg IH PRN 09/11/20 09/11/20 Unknown History Cholecalciferol (Vitamin D3) 25 tab PO DAILY 09/11/20 09/11/20 Unknown History Cozaar 25 tab PO DAILY 09/11/20 09/11/20 Unknown History HumaLOG 14 unit SQ AC 09/11/20 09/11/20 Unknown History Hydralazine HCl 50 tab PO TID 09/11/20 09/11/20 Unknown History Isosorbide Dinitrate 30 mg PO DAILY 09/11/20 09/11/20 Unknown History Lantus VIAL 54 units SQ HS 09/11/20 09/11/20 Unknown History Lasix 20 tab PO DAILY 09/11/20 09/11/20 Unknown History Nifedipine 30 tab PO DAILY 09/11/20 09/11/20 Unknown History Active Medications: Generic Name Dose Route Start Last Admin Trade Name Freq PRN Reason Stop Dose Admin Acetaminophen 650 mg 10/02/20 09:00 10/04/20 05:10 Acetaminophen 325 Mg/10.15 Ml Oral Liqd Unit Dose PO 650 mg Q4HR PRN Administration Non Cardiac Pain or Temp>100.5 Amiodarone HCl 200 mg 10/05/20 11:00 10/09/20 23:07 Amiodarone 200 Mg Tab PO 200 mg BID TAYLOR Administration Lipase/Protease/Amylase 1 each 09/09/20 09:40 Lipase 10,500/Protease 25,000/Amylase 43,750 (Units) Dr Armenta FEEDTUBE PRN PRN For Clogged Feeding Tube Hydralazine HCl 50 mg 09/23/20 14:00 10/10/20 06:42 Hydralazine 25 Mg Tab PO 50 mg Q8HR TAYLOR Administration Sodium Chloride 100 mls @ 999 mls/hr 09/09/20 13:36 Nacl 0.9% IV JAYJAY PRN Hypotension Cefepime HCl 2 gm in 100 mls @ 200 mls/hr 10/05/20 22:00 10/09/20 23:04 Cefepime/Ns 2 Gm/100 Ml IV 10/11/20 22:29 200 mls/hr Q24H TAYLOR Administration Protocol Insulin Glargine 30 units 10/07/20 10:00 10/09/20 09:27 Insulin Glargine 100 Units/Ml SUB-Q 30 units DAILY TAYLOR Administration Insulin Human Lispro 0 unit 09/12/20 12:00 10/10/20 06:42 Insulin Lispro 100 Unit/Ml SUB-Q 3 unit Q6HR TAYLOR Administration Protocol Lansoprazole 30 mg 09/11/20 11:00 10/09/20 23:07 Lansoprazole 30 Mg Solalyssab FEEDTUBE 30 mg BID TAYLOR Administration Levetiracetam 1,500 mg 09/28/20 10:00 10/09/20 23:07 Levetiracetam 500 Mg/5 Ml Oral Liqd PO 1,500 mg BID TAYLOR Administration Multivitamins 5 ml 09/09/20 12:00 10/09/20 09:51 Multivitamins 5 Ml Oral Liquid PO Not Given QDAY TAYLOR Ondansetron HCl 4 mg 09/07/20 17:55 09/19/20 04:00 Ondansetron 4 Mg/2 Ml Inj IV 4 mg Q8H PRN Administration Nausea And Vomiting Senna/Docusate Sodium 2 tab 09/20/20 11:00 Sennosides/Docusate Sodium 8.6/50 Mg Tab PO BID PRN Laxative Effect Simple Syrup 15 ml 09/09/20 09:40 09/17/20 17:43 Simple Syrup 15 Ml FEEDTUBE 15 ml PRN PRN Administration Hypoglycemia Simple Syrup 30 ml 09/09/20 09:40 Simple Syrup 15 Ml FEEDTUBE PRN PRN Hypoglycemia Sodium Bicarbonate 325 mg 09/09/20 09:40 Sodium Bicarbonate 325 Mg Tab FEEDTUBE PRN PRN For Clogged Feeding Tube Sodium Chloride 10 ml 09/07/20 22:00 10/09/20 23:08 Sodium Chloride 0.9% 10 Ml Flush Syringe IV 10 ml BID TAYLOR Administration Sodium Chloride 10 ml 09/07/20 17:55 Sodium Chloride 0.9% 10 Ml Flush Syringe IV PRN PRN LINE FLUSH Valproic Acid 1,000 mg 09/28/20 10:00 10/09/20 23:06 Valproic Acid 250 Mg/5 Ml Oral Liqd FEEDTUBE 1,000 mg BID TAYLOR Administration
--- NOTE | 2020-10-10 09:04 | Progress Note ---
Assessment and Plan Assessment and plan: #S/p cardiopulmonary arrest (out of hospital) Now poorly responsive with brain damage/anoxic brain injury #Toxic metabolic encephalopathy +/-anoxic injury Persists Now has trach and PEG #Acute hypoxic respiratory failure Continue oxygen supplementation #Nonoliguric acute kidney injury secondary to ATN. Patient status post emergent hemodialysis 09/08. Continue hemodialysis as scheduled. Last hemodialysis on 10/05. Nephrology on board #Seizure disorder Keppra 1500 twice daily Depakote 1000 mg twice daily #COVID-19 pneumonia Status post COVID-19 treatment #Fever Remains febrile Repeat blood cultures ordered Chest x-ray, urinalysis #Diabetes mellitus Glargine 25 units daily Lispro sliding scale #Hypertension Hydralazine 3 times daily #Atrial fibrillation with RVR Converted to sinus rhythm after initiation of amiodarone drip Continue p.o. amiodarone for now Holding therapeutic anticoagulation due to drop in hemoglobin #Acute on chronic anemia Continue to trend hemoglobin Repeat labs ordered today DVT prophylaxis-Lovenox Full code Disposition-family trying to consider hospice. Patient will need [facility] approval prior to this as per medical case manager. 09/15/2020. MRI brain for further evaluation. Continue AEDs of valproic acid and Keppra. Continue hemodialysis per nephrology recommendations. Overall prognosis remains guarded and poor. 09/16/2020. ID recommends continue to monitor patient off of antibiotics. Fever most likely of central etiology. Patient with questionable seizures versus myoclonus from anoxic brain injury. Patient unable to undergo MRI due to body habitus. Continue AEDs per neurology recommendations. Inflammatory markers elevated. Patient was recently hospitalized for [place]. Patient not a candidate for remdesivir due to hepatic and renal failure. Viral hepatitis panel negative. Overall prognosis extremely poor. 09/17/2020. Fevers have resolved over the past 48 hours. Continue to monitor off antibiotics per ID recommendations. Patient with questionable seizures versus myoclonus from anoxic brain injury. Patient unable to undergo MRI due to body habitus. EEG is nonspecific but given CT of head findings consistent with anoxic encephalopathy, brain injury. Continue AEDs per neurology recommendations. Inflammatory markers elevated. Patient was recently hospitalized for COVID-[place] pneumonia [place] being [place]. Patient not a candidate for remdesivir due to hepatic and renal failure. Viral hepatitis panel negative. Patient is s/p emergent HD on Friday (hyperK) and Friday - 09/08. Patient also S/p HD 09/15. Continue hemodialysis per nephrology recommendations. Patient currently on AC/PRVC mode ventilation with rate of 30, tidal volume 475, FiO2 30% and PEEP of 6. As stated in neuro note, overall prognosis is very poor. 09/18/2020. Fevers have resolved over the past 72 hours. Continue to monitor off antibiotics per ID recommendations. Leukocytosis persistent for the past 4 days. Patient with questionable seizures/myoclonus from anoxic brain injury. Patient unable to undergo MRI due to body habitus. EEG is nonspecific but given CT of head findings consistent with anoxic encephalopathy, brain injury. Continue AEDs per neurology recommendations. Inflammatory markers elevated. Patient was recently hospitalized for COVID-[place] pneumonia [place] being [place]. Patient not a candidate for remdesivir due to hepatic and renal failure. Viral hepatitis panel negative. Patient currently on AC/PRVC mode ventilation with rate of 30, tidal volume 475, FiO2 30% and PEEP of 6. Overall prognosis remains guarded/poor. 09/19/2020 Fevers have resolved over the past 4 days. Continue to monitor off antibiotics per ID recommendations. Leukocytosis persistent for the past 4 days. Patient with questionable seizures/myoclonus from anoxic brain injury. Patient unable to undergo MRI due to body habitus. EEG is nonspecific but given CT of head findings consistent with anoxic encephalopathy, brain injury. Continue AEDs per neurology recommendations. Inflammatory markers elevated. Patient was recently hospitalized for COVID-[place] pneumonia [place]. Patient not a candidate for remdesivir due to hepatic and renal failure. Viral hepatitis panel negative. Patient currently on AC/PRVC mode ventilation with rate of 30, tidal volume 475, FiO2 30% and PEEP of 6. Overall prognosis remains guarded/poor. 09/20/2020 -Surgery consulted for PEG and trach, will continue to follow. 09/21/2020; patient will have PEG and trach by Dr. hayes today. Prognosis is poor. Continue with current management. Health Careers Instructor is following for vent management. 09/22/2020; patient had PEG and trach yesterday. 09/23/2020; continue PEG Tube Feeding. 09/24/2020; continue PEG tube feeding, patient is on Keppra, lorazepam and phenytoin per neurology recommendation. Patient is on hemodialysis and ne phrology is following. Management of mechanical ventilation for CCM. 09/25/2020. Continue PEG tube feeding, patient is on Keppra, lorazepam and phenytoin per neurology recommendation. Patient is on hemodialysis and nephrology is following. Management of mechanical ventilation for CCM. Continue PSV/CPAP 12/6. Continue tracheostomy care, secretion control and airway management. 09/26/2020. Patient has tolerated PSV for approximately 48 hours. I discussed with pulmonary possibility of T-piece today. Continue tracheostomy care, secretion control and airway management. If patient tolerates T-piece trials, patient will be transferred to the floor. Continue AEDs of Keppra and phenytoin as well as Ativan as needed per neurology recommendations. Continue hemodialysis per nephrology. Continue TF with aspiration precautions. 09/27/2020. Patient continues to tolerate PSV 12/6 at 30% FiO2. T-piece trials per pulmonary. Continue tracheostomy care, secretion control and airway manag ement. Continue AEDs of Keppra and phenytoin as well as Ativan as needed per neurology recommendations. Continue hemodialysis per nephrology. Continue TF with aspiration precautions. 09/28/2020. Patient for T-piece trials per pulmonary. Continue hemodialysis per nephrology. Continue tracheostomy care, secretion control and airway management. Continue AEDs of Keppra and phenytoin as well as Ativan as needed per neurology recommendations. Continue TF with aspiration precautions. 09/29/2020, continue T-piece trials per pulmonary. Continue hemodialysis per nephrology. Continue strict I/O's and labs daily. Monitor for renal recovery. 09/30/2020. Continue T-piece trials per pulmonary recommendations. Continue tracheostomy care, secretion control and airway management. Continue hemodialy sis per nephrology. Tight glycemic control. Continue TF with aspiration precautions. 10/01/2020. Patient with T-piece trials and tolerating. Wean to trach collar per pulmonary. Continue tracheostomy care, secretion control and airway management. Continue hemodialysis per nephrology. Tight glycemic control. Continue TF with aspiration precautions. Case management consultation for placement 10/02/20. Continue T-piece trials per pulmonary recommendations. Continue tracheostomy care, secretion control and airway management. Continue hemodialysis per nephrology. Tight glycemic control. Continue TF with aspiration precautions. 10/03/2020. Continue T-piece trials per pulmonology. Continue tracheostomy care, secretion control and airway management. Continue modalities per nephrology. Discharge planning underway. Needs placement to SNF versus hospice. 10/04/2020. Patient remained febrile with temperature 101 F. Ordered blood culture, chest x-ray, urinalysis. Plan to start antibiotics after blood cultures been obtained. Patient remains hemodynamically stable. Plan to dis charge to SNF versus inpatient hospice on the way. 10/05/2020. Started on antibiotics yesterday. Awaiting blood culture. He developed atrial fibrillation with RVR and was placed on amiodaron see awaiting placement. E drip with subsequent conversion to SR. Now on amiodarone PO. Discussed with patients - she would like him to go inpatient hospice or a [facility] care facility. As per CM, VA not approving LTC placement at this time. As is still undecided about hospice, inpatient hospice is not accepting h im at this time. has placed a referral to a SNF with inpatient dialysis. Awai keving response from the SNF. 10/06/2020. Hb drop noted. Not on therapeutic anticoagulation [atrial f ibrillation] due to duration of atrial fibrillation [lasted less than 2 hours] and also drop in hemoglobin. Continue to monitor hemoglobin. Repeat labs ordered today. Vitals stable. Discussed with patient's yesterday 10/07. HR is controlled. Pending placement. As per CM notes, patient denied acceptance at a [facility] as he has VA insurance. Will discuss with CM to know other options are available. 10/08. Vitals stable. Will discuss discharge plan with spouse today as it looks like only option left is inpatient hospice. 10/09. Vitals stable. Will discuss discharge plan with spouse today as it looks like only option left is inpatient hospice 10/10. Discussed with patient spouse. Patient spouse asking to see patient in the hospital. care manager on board. Patient has not had hemodialysis since 10/05. Creatinine stable at 4.6. Nephrology on board History Interval history: 65 y/o male with out of hospital cardiac arrest, acute hypoxic respiratory failure and COVID-19 infection. Hospitalist Physical - Physical exam Narrative exam: VITAL SIGNS: Reviewed. GENERAL: Not responsive HEAD: No signs of head trauma. EYES: Closed MOUTH: Oropharynx is normal. NECK: No adenopathy, no JVD. CHEST: Diminished breath sounds with crackles bilaterally CARDIAC: normal S1 and S2, without murmurs, gallops, or rubs. ABDOMEN: Soft, non tender and non distended. No rebound or guarding, and no masses palpated. Bowel Sounds normal. MUSCULOSKELETAL: Bilateral leg edema NEUROLOGIC EXAM: Not responsive SKIN: No obvious lesions - Constitutional Vitals: Temp Pulse Resp BP Pulse Ox 98.9 F 67 24 135/64 97 10/10/20 05:35 10/10/20 06:42 10/10/20 05:35 10/10/20 05:35 10/10/20 08:27 HEART Score - HEART Score Troponin: Troponin T 0.076 ng/mL (0.00-0.029) H 09/07/20 14:00 Results - Labs CBC & Chem 7: 10/06/20 10:12 10/11/20 04:50 Labs: Laboratory Last Values WBC 7.1 K/mm3 (4.5-11.0) 10/06/20 10:12 RBC 2.92 M/mm3 (3.65-5.03) L 10/06/20 10:12 Hgb 8.4 gm/dl (11.8-15.2) L 10/06/20 10:12 Hct 24.7 % (35.5-45.6) L 10/06/20 10:12 MCV 85 fl (84-94) 10/06/20 10:12 MCH 29 pg (28-32) 10/06/20 10:12 MCHC 34 % (32-34) 10/06/20 10:12 RDW 18.1 % (13.2-15.2) H 10/06/20 10:12 Plt Count 182 K/mm3 (140-440) 10/06/20 10:12 Lymph % (Auto) 27.0 % (13.4-35.0) 10/01/20 04:33 [place] % (Auto) Door Fitter 10/06/20 10:12 Eos % (Auto) 1.4 % (0.0-4.3) 10/01/20 04:33 Baso % (Auto) 0.3 % (0.0-1.8) 10/01/20 04:33 Lymph # (Auto) 1.9 K/mm3 (1.2-5.4) 10/01/20 04:33 [place] # (Auto) 1.2 K/mm3 (0.0-0.8) H 10/01/20 04:33 Eos # (Auto) 0.1 K/mm3 (0.0-0.4) 10/01/20 04:33 Baso # (Auto) 0.0 K/mm3 (0.0-0.1) 10/01/20 04:33 Add Manual Diff Complete 10/06/20 10:12 Total Counted 100 10/06/20 10:12 Seg Neutrophils % 54.7 % (40.0-70.0) 10/01/20 04:33 Seg Neuts % (Manual) 65.0 % (40.0-70.0) 10/06/20 10:12 Band Neutrophils % 8.0 % 09/30/20 06:57 Lymphocytes % (Manual) 26.0 % (13.4-35.0) 10/06/20 10:12 Monocytes % (Manual) 6.0 % (0.0-7.3) 10/06/20 10:12 Eosinophils % (Manual) 3.0 % (0.0-4.3) 10/06/20 10:12 Basophils % (Manual) 1.0 % (0.0-1.8) 09/30/20 06:57 Metamyelocytes % 2.0 % 09/08/20 Unknown Promyelocytes % 0 % 10/04/20 10:32 Nucleated RBC % Not Reportable 10/06/20 10:12 Seg Neutrophils # 3.9 K/mm3 (1.8-7.7) 10/01/20 04:33 Seg Neutrophils # Man 4.6 K/mm3 (1.8-7.7) 10/06/20 10:12 Band Neutrophils # 0.0 K/mm3 10/06/20 10:12 Lymphocytes # (Manual) 1.8 K/mm3 (1.2-5.4) 10/06/20 10:12 Abs React Lymphs (Man) 0.0 K/mm3 10/06/20 10:12 Monocytes # (Manual) 0.4 K/mm3 (0.0-0.8) 10/06/20 10:12 Eosinophils # (Manual) 0.2 K/mm3 (0.0-0.4) 10/06/20 10:12 Basophils # (Manual) 0.0 K/mm3 (0.0-0.1) 10/06/20 10:12 Metamyelocytes # 0.0 K/mm3 10/06/20 10:12 Myelocytes # 0.0 K/mm3 10/06/20 10:12 Promyelocytes # 0.0 K/mm3 10/06/20 10:12 Blast Cells # 0.0 K/mm3 10/06/20 10:12 WBC Morphology Not Reportable 10/06/20 10:12 Hypersegmented Neuts Not Reportable 10/06/20 10:12 Hyposegmented Neuts Not Reportable 10/06/20 10:12 Hypogranular Neuts Not Reportable 10/06/20 10:12 Smudge Cells Not Reportable 10/06/20 10:12 Toxic Granulation Not Reportable 10/06/20 10:12 Toxic Vacuolation Not Reportable 10/06/20 10:12 Dohle Bodies Not Reportable 10/06/20 10:12 Pelger-Huet Anomaly Not Reportable 10/06/20 10:12 Justus Rods Not Reportable 10/06/20 10:12 Platelet Estimate Consistent w auto 10/06/20 10:12 Clumped Platelets Not Reportable 10/06/20 10:12 Plt Clumps, EDTA Not Reportable 10/06/20 10:12 Large Platelets Not Reportable 10/06/20 10:12 Giant Platelets Not Reportable 10/06/20 10:12 Platelet Satelliting Not Reportable 10/06/20 10:12 Plt Morphology Comment Not Reportable 10/06/20 10:12 RBC Morphology Not Reportable 10/06/20 10:12 Dimorphic RBCs Not Reportable 10/06/20 10:12 Polychromasia Not Reportable 10/06/20 10:12 Hypochromasia Not Reportable 10/06/20 10:12 Poikilocytosis Not Reportable 10/06/20 10:12 Anisocytosis 1+ 10/06/20 10:12 Microcytosis Not Reportable 10/06/20 10:12 Macrocytosis Not Reportable 10/06/20 10:12 Spherocytes Not Reportable 10/06/20 10:12 Pappenheimer Bodies Not Reportable 10/06/20 10:12 Sickle Cells Not Reportable 10/06/20 10:12 Target Cells Not Reportable 10/06/20 10:12 Tear Drop Cells Not Reportable 10/06/20 10:12 Ovalocytes Not Reportable 10/06/20 10:12 Helmet Cells Not Reportable 10/06/20 10:12 Batres-Virgin Bodies Not Reportable 10/06/20 10:12 Grant Rings Not Reportable 10/06/20 10:12 Manjit Cells Not Reportable 10/06/20 10:12 Bite Cells Not Reportable 10/06/20 10:12 Crenated Cell Not Reportable 10/06/20 10:12 Elliptocytes Not Reportable 10/06/20 10:12 Acanthocytes (Spur) Not Reportable 10/06/20 10:12 Rouleaux Not Reportable 10/06/20 10:12 Hemoglobin C Crystals Not Reportable 10/06/20 10:12 Schistocytes Not Reportable 10/06/20 10:12 Malaria parasites Not Reportable 10/06/20 10:12 Tommie Bodies Not Reportable 10/06/20 10:12 Hem Pathologist Commnt No 10/06/20 10:12 PT 16.1 Sec. (12.2-14.9) H 09/12/20 04:00 INR 1.31 (0.87-1.13) H 09/12/20 04:00 APTT 32.4 Sec. (24.2-36.6) 09/09/20 10:00 D-Dimer 8315.85 ng/mlDDU (0-234) H 09/07/20 14:00 ABG pH 7.468 (7.320-7.450) H 10/02/20 10:16 POC ABG pCO2 37.1 mmHg (32.0-48.0) 10/02/20 10:16 ABG pCO2 33.4 mm Hg 09/11/20 05:40 POC ABG pO2 72.9 mmHg (83-108) L 10/02/20 10:16 ABG pO2 112.1 mm Hg (80.0-90.0) H 09/11/20 05:40 POC ABG HCO3 26.3 10/02/20 10:16 ABG HCO3 28.1 mmol/L (20.0-26.0) H 09/11/20 05:40 ABG O2 Saturation 98.4 % (95.0-99.0) 09/11/20 05:40 ABG O2 Content 11.6 (0.0-44) 09/11/20 05:40 POC ABG Base Excess 2.6 10/02/20 10:16 ABG Base Excess 5.4 mmol/L (-2.0-3.0) H 09/11/20 05:40 ABG Hemoglobin 10.1 (12.0-17.5) L 10/02/20 10:16 ABG Oxyhemoglobin 93.1 (94-98) L 10/02/20 10:16 ABG Carboxyhemoglobin 1.2 % (0.0-5.0) 09/11/20 05:40 ABG Methemoglobin 0.3 (0.0-1.5) 10/02/20 10:16 ABG Sodium 138.5 mmol/L (136.0-145.0) 10/02/20 10:16 ABG Potassium 3.9 mmol/L (3.40-4.50) 10/02/20 10:16 ABG Chloride 108.0 mmol/L (98-107) H 10/02/20 10:16 ABG Glucose 289 mg/dL (65-95) H 10/02/20 10:16 Oxyhemoglobin 96.8 % (95.0-99.0) 09/11/20 05:40 Carboxyhemoglobin 0.8 (0.5-1.5) 10/02/20 10:16 FiO2 35 10/02/20 10:16 Sodium 133 mmol/L (137-145) L 10/10/20 05:46 Potassium 3.8 mmol/L (3.6-5.0) 10/10/20 05:46 Chloride 96.3 mmol/L (98-107) L 10/10/20 05:46 Carbon Dioxide 26 mmol/L (22-30) 10/10/20 05:46 Anion Gap 15 mmol/L 10/10/20 05:46 BUN 84 mg/dL (9-20) H 10/10/20 05:46 Creatinine 4.6 mg/dL (0.8-1.3) H 10/10/20 05:46 Estimated GFR 16 ml/min 10/10/20 05:46 BUN/Creatinine Ratio 18 % 10/10/20 05:46 Glucose 208 mg/dL (75-100) H 10/10/20 05:46 POC Glucose 199 mg/dL (70-105) H 10/10/20 06:18 Lactic Acid 2.90 mmol/L (0.7-2.0) H* 09/17/20 13:52 Calcium 9.5 mg/dL (8.4-10.2) 10/10/20 05:46 Phosphorus 8.00 mg/dL (2.5-4.5) H 09/08/20 12:02 Magnesium 1.80 mg/dL (1.7-2.3) 09/08/20 12:02 Ferritin > 2000.0 ng/mL (30.0-300.0) H 09/07/20 14:00 Total Bilirubin 0.30 mg/dL (0.1-1.2) 10/06/20 10:12 Direct Bilirubin 0.5 mg/dL (0-0.2) H 09/08/20 05:00 Indirect Bilirubin 0.5 mg/dL 09/08/20 05:00 AST 52 units/L (5-40) H 10/06/20 10:12 ALT 28 units/L (7-56) 10/06/20 10:12 Alkaline Phosphatase 94 units/L (35-129) 10/06/20 10:12 Ammonia 50.0 umol/L (25-60) 09/07/20 14:00 Lactate Dehydrogenase 882 units/L (91-180) H 09/07/20 14:00 Total Creatine Kinase 477 units/L (55-170) H 09/07/20 14:00 Troponin T 0.076 ng/mL (0.00-0.029) H 09/07/20 14:00 C-Reactive Protein 1.10 mg/dL (0.00-1.30) 09/07/20 14:00 Total Protein 8.4 g/dL (6.3-8.2) H 10/06/20 10:12 Albumin 2.3 g/dL (3.9-5) L 10/06/20 10:12 Albumin/Globulin Ratio 0.4 % 10/06/20 10:12 Triglycerides 220 mg/dL (2-149) H 09/12/20 Unknown Procalcitonin 1.16 ng/mL (<0.15) 10/04/20 10:32 TSH 2.290 mlU/mL (0.270-4.200) 09/07/20 14:00 Arterial Blood Glucose 289 mg/dL (65-95) H 10/02/20 10:16 Arterial Blood Ionized Calcium 5.2 mg/dL (4.6-5.3) 10/02/20 10:16 Urine Color Yellow (Yellow) 10/05/20 09:15 Urine Turbidity Slightly-cloudy (Clear) 10/05/20 09:15 Urine pH 5.0 (5.0-7.0) 10/05/20 09:15 Ur Specific [place] 1.015 (1.003-1.030) 10/05/20 09:15 Urine Protein 30 mg/dl mg/dL (Negative) 10/05/20 09:15 Urine Glucose (UA) Neg mg/dL (Negative) 10/05/20 09:15 Urine Ketones Neg mg/dL (Negative) 10/05/20 09:15 Urine Blood Sm (Negative) 10/05/20 09:15 Urine Nitrite Neg (Negative) 10/05/20 09:15 Urine Bilirubin Neg (Negative) 10/05/20 09:15 Urine Urobilinogen < 2.0 mg/dL (<2.0) 10/05/20 09:15 Ur Leukocyte Esterase Neg (Negative) 10/05/20 09:15 Urine WBC (Auto) 13.0 /HPF (0.0-6.0) H 10/05/20 09:15 Urine RBC (Auto) 19.0 /HPF (0.0-6.0) 10/05/20 09:15 U Epithel Cells (Auto) 6.0 /HPF (0-13.0) 10/05/20 09:15 Urine Bacteria (Auto) 2+ /HPF (Negative) 10/05/20 09:15 Hyaline Casts 1 /LPF 10/05/20 09:15 Urine Mucus Few /HPF 10/05/20 09:15 Urine Yeast (Budding) 3+ /HPF 10/05/20 09:15 Urine Sperm 3+ /HPF (CUTTER DOWN) 09/07/20 13:08 Urine Creatinine 182.4 mg/dL (0.1-20.0) H 09/08/20 Unknown Urine Sodium 40 mmol/L 09/08/20 Unknown Salicylates < 0.3 mg/dL (2.8-20.0) L 09/07/20 14:00 Acetaminophen 5.0 ug/mL (10.0-30.0) L 09/07/20 14:00 Valproic Acid 58.9 ug/mL (50-100) 10/04/20 04:55 Plasma/Serum Alcohol < 0.01 % (0-0.07) 09/07/20 14:00 Coronavirus (PCR) Negative (Negative) 10/03/20 10:01 Hepatitis A IgM Ab Non-reactive (NonReactive) 09/07/20 14:00 Hep Bs Antigen Non-reactive (Negative) 09/07/20 14:00 Hep B Core IgM Ab Non-reactive (NonReactive) 09/07/20 14:00 Hepatitis C Antibody Non-reactive (NonReactive) 09/07/20 14:00 HIV 1&2 Antibody Rapid Non react (Non React) 09/07/20 14:34 HIV P24 Antigen Non react (Non React) 09/07/20 14:34 Blood Type O POSITIVE 09/09/20 10:00 Antibody Screen Negative 09/07/20 14:00 Microbiology: Microbiology 10/04/20 10:32 Peripheral/Venous Blood Culture - Final NO GROWTH AFTER 5 DAYS 10/04/20 10:32 Peripheral/Venous Blood Culture - Final NO GROWTH AFTER 5 DAYS Mae/IV: Voiding Method Condom Catheter IV Catheter Type [Right Triple Lumen Cath Femoral] IV Catheter Type [Left Peripheral IV Antecubital] IV Catheter Type [Left Hand] Peripheral IV IV Catheter Type [Right Peripheral IV Antecubital] Active Medications - Current Medications Current Medications: Generic Name Dose Route Start Last Admin Trade Name Freq PRN Reason Stop Dose Admin Acetaminophen 650 mg 10/02/20 09:00 10/04/20 05:10 Acetaminophen 325 Mg/10.15 Ml Oral Liqd Unit Dose PO 650 mg Q4HR PRN Administration Non Cardiac Pain or Temp>100.5 Amiodarone HCl 200 mg 10/05/20 11:00 10/09/20 23:07 Amiodarone 200 Mg Tab PO 200 mg BID TAYLOR Administration Lipase/Protease/Amylase 1 each 09/09/20 09:40 Lipase 10,500/Protease 25,000/Amylase 43,750 (Units) Dr Cap FEEDTUBE PRN PRN For Clogged Feeding Tube Hydralazine HCl 50 mg 09/23/20 14:00 10/10/20 06:42 Hydralazine 25 Mg Tab PO 50 mg Q8HR TAYLOR Administration Sodium Chloride 100 mls @ 999 mls/hr 09/09/20 13:36 Nacl 0.9% IV JAYJAY PRN Hypotension Cefepime HCl 2 gm in 100 mls @ 200 mls/hr 10/05/20 22:00 10/09/20 23:04 Cefepime/Ns 2 Gm/100 Ml IV 10/11/20 22:29 200 mls/hr Q24H TAYLOR Administration Protocol Insulin Glargine 30 units 10/07/20 10:00 10/09/20 09:27 Insulin Glargine 100 Units/Ml SUB-Q 30 units DAILY TAYLOR Administration Insulin Human Lispro 0 unit 09/12/20 12:00 10/10/20 06:42 Insulin Lispro 100 Unit/Ml SUB-Q 3 unit Q6HR TAYLOR Administration Protocol Lansoprazole 30 mg 09/11/20 11:00 10/09/20 23:07 Lansoprazole 30 Mg Solutab FEEDTUBE 30 mg BID TAYLOR Administration Levetiracetam 1,500 mg 09/28/20 10:00 10/09/20 23:07 Levetiracetam 500 Mg/5 Ml Oral Liqd PO 1,500 mg BID TAYLOR Administration Multivitamins 5 ml 09/09/20 12:00 10/09/20 09:51 Multivitamins 5 Ml Oral Liquid PO Not Given [facility] Ondansetron HCl 4 mg 09/07/20 17:55 09/19/20 04:00 Ondansetron 4 Mg/2 Ml Inj IV 4 mg Q8H PRN Administration Nausea And Vomiting Senna/Docusate Sodium 2 tab 09/20/20 11:00 Sennosides/Docusate Sodium 8.6/50 Mg Tab PO BID PRN Laxative Effect Simple Syrup 15 ml 09/09/20 09:40 09/17/20 17:43 Simple Syrup 15 Ml FEEDTUBE 15 ml PRN PRN Administration Hypoglycemia Simple Syrup 30 ml 09/09/20 09:40 Simple Syrup 15 Ml FEEDTUBE PRN PRN Hypoglycemia Sodium Bicarbonate 325 mg 09/09/20 09:40 Sodium Bicarbonate 325 Mg Tab FEEDTUBE PRN PRN For Clogged Feeding Tube Sodium Chloride 10 ml 09/07/20 22:00 10/09/20 23:08 Sodium Chloride 0.9% 10 Ml Flush Syringe IV 10 ml BID TAYLOR Administration Sodium Chloride 10 ml 09/07/20 17:55 Sodium Chloride 0.9% 10 Ml Flush Syringe IV PRN PRN LINE FLUSH Valproic Acid 1,000 mg 09/28/20 10:00 10/09/20 23:06 Valproic Acid 250 Mg/5 Ml Oral Liqd FEEDTUBE 1,000 mg BID TAYLOR Administration Nutrition/Malnutrition Assess - Dietary Evaluation Nutrition/Malnutrition Findings: Nutrition Notes Start: 09/08/20 12:01 Freq: Status: Active Protocol: Document 10/06/20 10:48 [email or web address] (Rec: 10/06/20 11:09 [email or web address] [email or web address]) Co-Sign 10/06/20 10:48 Nutrition Notes Initial or Follow up Reassessment Current Diagnosis Acute Kidney Injury, Respiratory Failure Other Pertinent Diagnosis on HD, cardiac arrest, COVID ( +), metabolic encephalopathy, pneu Current Diet Nepro 1.8 at 45 mL/hr (goal rate) Labs/Tests BUN 55 Na 135 BG 304 Pertinent Medications Humalog 6 units Lantus 25 units Height 6 ft Weight 145.18 kg [place] Body Weight (kg) 80.90 BMI 43.4 Weight Status Morbidly Obese Subjective/Other Information F/U TF tolerance. Spoke with RN, Pt is tolerating TF at goal rate of 45ml/hr. Percent of energy/protein needs met: 100%/64% Burn Absent Trauma Absent GI Symptoms None Difficulty In Swallowing Food Allergy No Skin Integrity/Comment pressure ulcer to lips Current % PO Negligible Minimum of two criteria No Fluid Accumulation Mild (non-severe) #3 Nutrition Diagnosis Increased nutrient needs ( specify in comment below) Diagnosis Progress(for reassessment Continues documentation) #2 Nutrition Diagnosis Increased nutrient needs ( specify in comment below) As Evidenced by Signs and Symptoms Pt on HD and not meeting protein needs Diagnosis Progress(for reassessment Continues documentation) #1 Nutrition Diagnosis Inadequate oral intake Diagnosis Progress(for reassessment Continues documentation) Is patient on ventilator? No Is Patient Ambulatory and/or Out of Bed No REE-(Daniels-St. Jeor-confined to bed) 2740.164 Kcal/Kg value to use for calculation 13 Approximate Energy Requirements Using 1887 kcal/Kg Calculation Used for Recommendations Kcal/kg Additional Notes PRO needs: >136g (>1.2g/kg AdjBW 113.04kg) Fluid needs are 1000-1500ml Nutrition Intervention Change Diet Order: TF Nutrition Support: Nepro at 45ml/hr Flush 120ml q4h Kcal 1,944 Protein (gm) 87 Fluid (mL) 785 Goal #1 Meet kcal and protein needs as best as possible via TF Anticipated Discharge Needs: TF Follow-Up By: 10/10/20 Additional Comments F/U stable TF
[2020-10-10] MEDS: levETIRAcetam 500 MG/5 ML ORAL LIQD PO SCH ×2 (09:27→22:08)
[2020-10-10] MEDS: VALPROIC ACID 250 MG/5 ML ORAL LIQD FEEDTUBE SCH ×2 (09:27→22:08)
[2020-10-10] MEDS: LANSOPRAZOLE 30 MG SOLUTAB FEEDTUBE SCH ×2 (09:28→22:08)
[2020-10-10] MEDS: AMIODARONE 200 MG TAB PO SCH ×2 (09:28→22:08)
[2020-10-10] MEDS: INSULIN GLARGINE 100 UNITS/ML SUB-Q SCH (09:28)
[2020-10-10] MEDS: MULTIVITAMINS 5 ML ORAL LIQUID PO SCH (09:29)
[2020-10-10] MEDS: CEFEPIME/NS 2 GM/100 ML 2 GM/100 ML BAG IV SCH (22:07)
[2020-10-11] MEDS: INSULIN LISPRO 100 UNIT/ML SUB-Q SCH ×4 (00:54→17:17)
[2020-10-11 05:40] LABS: Calcium 9.7 mg/dL (8.4-10.2)
[2020-10-11] MEDS: hydrALAZINE 25 MG TAB PO SCH ×3 (05:42→23:45)
--- NOTE | 2020-10-11 08:43 | Progress Note ---
Subjective Principal diagnosis: Abnormal LFTs, s/p cardiac arrest, acute kidney injury with ATN Interval history: Patient was seen today for follow-up of multiple renal related issues, patient appears to be resting comfortably in bed in no acute distress he does have a Mae catheter which is draining florentino colored urine Patient remains encephalopathic Interdisciplinary notes that also reviewed Events of 24 hours vitals labs intake output medications were reviewed Past medical history: Reviewed Family history: Reviewed Social history: Reviewed Allergies: Reviewed Physical examination: Vitals: Reviewed HEENT: No pallor or icterus oral mucosa moist Neck: Supple no JVD no thyromegaly Chest: Bilateral clear to auscultation anteriorly Heart: Regular rate and rhythm S1-S2 heard no S3-S4 Abdomen: Soft nontender no voluntary guarding rigidity rebound Extremity: Dry skin less than 1+ peripheral edema Psychiatric: No evidence of agitation and aggression noted Dermatology: No petechial rashes Labs and x-rays: Reviewed from today Assessment and plan Acute kidney injury currently nonoliguric likely felt to be due to acute tubular necrosis which has been felt to be multifactorial, renal function remained stable at this time no acute emergent indication for renal replacement therapy his BMI is 46.6 Overall he is not a long-term candidate for renal placement therapy given his health status, Dialysis catheter was removed his last dialysis was on October 05 Patient will need ultrasonogram which will be ordered Does have underlying chronic kidney disease baseline creatinine around 1.8, upon admission the creatinine was around 5.6 on September 25, 2020 patient does have multiple risk factors for underlying chronic kidney disease overall prognosis appears to be very poor, mortality risk will be high, Status post out of hospital cardiac arrest, respiratory failure, encephalopathy, seizure disorder, Covid19 pneumonia Overall prognosis appears to be very poor at this has been discussed by my partner over the phone We'll continue to follow and make recommendation for renal standpoint Objective - Vital Signs Vital signs: Vital Signs - 12hr 10/10/20 10/10/20 10/10/20 21:29 21:30 23:52 Temperature Pulse Rate 59 L Respiratory 28 H Rate Blood Pressure 147/72 Blood Pressure [Right] O2 Sat by Pulse 100 100 Oximetry O2 Sat by Pulse 100 Oximetry [ Assessment] 10/11/20 10/11/20 10/11/20 00:24 03:05 04:18 Temperature 95.7 F L 94.9 F L 96.0 F L Pulse Rate 59 L 68 Respiratory 22 22 Rate Blood Pressure 139/62 Blood Pressure 122/61 [Right] O2 Sat by Pulse 99 96 Oximetry O2 Sat by Pulse Oximetry [ Assessment] 10/11/20 10/11/20 10/11/20 04:35 05:41 06:31 Temperature 97.3 F L 97.5 F L 97.2 F L Pulse Rate 69 71 Respiratory 24 22 Rate Blood Pressure 164/72 152/67 Blood Pressure [Right] O2 Sat by Pulse 99 97 Oximetry O2 Sat by Pulse Oximetry [ Assessment] - Lab 10/06/20 10:12 10/11/20 04:50 Most recent lab results ABG pH 7.468 (7.320-7.450) H 10/02/20 10:16 ABG pCO2 33.4 mm Hg 09/11/20 05:40 ABG pO2 112.1 mm Hg (80.0-90.0) H 09/11/20 05:40 ABG HCO3 28.1 mmol/L (20.0-26.0) H 09/11/20 05:40 ABG O2 Saturation 98.4 % (95.0-99.0) 09/11/20 05:40 Calcium 9.7 mg/dL (8.4-10.2) 10/11/20 04:50 Phosphorus 8.00 mg/dL (2.5-4.5) H 09/08/20 12:02 Magnesium 1.80 mg/dL (1.7-2.3) 09/08/20 12:02 Urine Creatinine 182.4 mg/dL (0.1-20.0) H 09/08/20 Unknown Urine Sodium 40 mmol/L 09/08/20 Unknown Medications & Allergies - Medications Allergies/Adverse Reactions: Allergies No Known Allergies Allergy (Verified 09/21/20 21:00) Verified with , no known drug allergies. Home Medications: Home Medications Medication Instructions Recorded Confirmed Last Taken Type Albuterol Sulfate 60 mcg IH PRN 09/11/20 09/11/20 Unknown History Cholecalciferol (Vitamin D3) 25 tab PO DAILY 09/11/20 09/11/20 Unknown History Cozaar 25 tab PO DAILY 09/11/20 09/11/20 Unknown History HumaLOG 14 unit SQ AC 09/11/20 09/11/20 Unknown History Hydralazine HCl 50 tab PO TID 09/11/20 09/11/20 Unknown History Isosorbide Dinitrate 30 mg PO DAILY 09/11/20 09/11/20 Unknown History Lantus VIAL 54 units SQ HS 09/11/20 09/11/20 Unknown History Lasix 20 tab PO DAILY 09/11/20 09/11/20 Unknown History Nifedipine 30 tab PO DAILY 09/11/20 09/11/20 Unknown History Active Medications: Generic Name Dose Route Start Last Admin Trade Name Freq PRN Reason Stop Dose Admin Acetaminophen 650 mg 10/02/20 09:00 10/04/20 05:10 Acetaminophen 325 Mg/10.15 Ml Oral Liqd Unit Dose PO 650 mg Q4HR PRN Administration Non Cardiac Pain or Temp>100.5 Amiodarone HCl 200 mg 10/05/20 11:00 10/10/20 22:08 Amiodarone 200 Mg Tab PO 200 mg BID TAYLOR Administration Lipase/Protease/Amylase 1 each 09/09/20 09:40 Lipase 10,500/Protease 25,000/Amylase 43,750 (Units) Dr Armenta FEEDTUBE PRN PRN For Clogged Feeding Tube Hydralazine HCl 50 mg 09/23/20 14:00 10/11/20 05:42 Hydralazine 25 Mg Tab PO 50 mg Q8HR TAYLOR Administration Sodium Chloride 100 mls @ 999 mls/hr 09/09/20 13:36 Nacl 0.9% IV JAYJAY PRN Hypotension Cefepime HCl 2 gm in 100 mls @ 200 mls/hr 10/05/20 22:00 10/10/20 22:07 Cefepime/Ns 2 Gm/100 Ml IV 10/11/20 22:29 200 mls/hr Q24H TAYLOR Administration Protocol Insulin Glargine 30 units 10/07/20 10:00 10/10/20 09:28 Insulin Glargine 100 Units/Ml SUB-Q 30 units DAILY TAYLOR Administration Insulin Human Lispro 0 unit 09/12/20 12:00 10/11/20 06:22 Insulin Lispro 100 Unit/Ml SUB-Q 4 unit Q6HR TAYLOR Administration Protocol Lansoprazole 30 mg 09/11/20 11:00 10/10/20 22:08 Lansoprazole 30 Mg Araseli FEEDTUBE 30 mg BID TAYLOR Administration Levetiracetam 1,500 mg 09/28/20 10:00 10/10/20 22:08 Levetiracetam 500 Mg/5 Ml Oral Liqd PO 1,500 mg BID TAYLOR Administration Multivitamins 5 ml 09/09/20 12:00 10/10/20 09:29 Multivitamins 5 Ml Oral Liquid PO Not Given QDAY TAYLOR Ondansetron HCl 4 mg 09/07/20 17:55 09/19/20 04:00 Ondansetron 4 Mg/2 Ml Inj IV 4 mg Q8H PRN Administration Nausea And Vomiting Senna/Docusate Sodium 2 tab 09/20/20 11:00 Sennosides/Docusate Sodium 8.6/50 Mg Tab PO BID PRN Laxative Effect Simple Syrup 15 ml 09/09/20 09:40 09/17/20 17:43 Simple Syrup 15 Ml FEEDTUBE 15 ml PRN PRN Administration Hypoglycemia Simple Syrup 30 ml 09/09/20 09:40 Simple Syrup 15 Ml FEEDTUBE PRN PRN Hypoglycemia Sodium Bicarbonate 325 mg 09/09/20 09:40 Sodium Bicarbonate 325 Mg Tab FEEDTUBE PRN PRN For Clogged Feeding Tube Sodium Chloride 10 ml 09/07/20 22:00 10/10/20 22:09 Sodium Chloride 0.9% 10 Ml Flush Syringe IV 10 ml BID TAYLOR Administration Sodium Chloride 10 ml 09/07/20 17:55 Sodium Chloride 0.9% 10 Ml Flush Syringe IV PRN PRN LINE FLUSH Valproic Acid 1,000 mg 09/28/20 10:00 10/10/20 22:08 Valproic Acid 250 Mg/5 Ml Oral Liqd FEEDTUBE 1,000 mg BID TAYLOR Administration
[2020-10-11] MEDS: levETIRAcetam 500 MG/5 ML ORAL LIQD PO SCH ×2 (10:17→23:44)
[2020-10-11] MEDS: VALPROIC ACID 250 MG/5 ML ORAL LIQD FEEDTUBE SCH ×2 (10:17→23:44)
[2020-10-11] MEDS: LANSOPRAZOLE 30 MG SOLUTAB FEEDTUBE SCH ×2 (10:17→23:45)
[2020-10-11] MEDS: AMIODARONE 200 MG TAB PO SCH ×2 (10:18→23:45)
[2020-10-11] MEDS: INSULIN GLARGINE 100 UNITS/ML SUB-Q SCH ×2 (10:19→13:56)
[2020-10-11] MEDS: MULTIVITAMINS 5 ML ORAL LIQUID PO SCH (10:57)
--- NOTE | 2020-10-11 11:18 | Progress Note ---
Assessment and Plan Assessment and plan: #S/p cardiopulmonary arrest (out of hospital) Now poorly responsive with brain damage/anoxic brain injury #Toxic metabolic encephalopathy +/-anoxic injury Persists Now has trach and PEG #Acute hypoxic respiratory failure Continue oxygen supplementation #Nonoliguric acute kidney injury secondary to ATN. Patient status post emergent hemodialysis 09/08. Continue hemodialysis as scheduled. Last hemodialysis on 10/05. Nephrology on board #Seizure disorder Keppra 1500 twice daily Depakote 1000 mg twice daily #COVID-19 pneumonia Status post COVID-19 treatment #Fever Now afebrile #Diabetes mellitus Glargine 25 units daily Lispro sliding scale #Hypertension Hydralazine 3 times daily #Atrial fibrillation with RVR Converted to sinus rhythm after initiation of amiodarone drip Continue p.o. amiodarone for now Holding therapeutic anticoagulation due to drop in hemoglobin #Acute on chronic anemia Continue to trend hemoglobin Repeat labs ordered today DVT prophylaxis-Lovenox Full code Disposition-family trying to consider hospice. Patient will need [facility] approval prior to this as per showcase maker. 09/15/2020. MRI brain for further evaluation. Continue AEDs of valproic acid and Keppra. Continue hemodialysis per nephrology recommendations. Overall prognosis remains guarded and poor. 09/16/2020. ID recommends continue to monitor patient off of antibiotics. Fever most likely of central etiology. Patient with questionable seizures versus myoclonus from anoxic brain injury. Patient unable to undergo MRI due to body habitus. Continue AEDs per neurology recommendations. Inflammatory markers elevated. Patient was recently hospitalized for COVID-19 pneumonia at the [place] prior to being hospitalized [place]. Patient not a candidate for remdesivir due to hepatic and renal failure. Viral hepatitis panel negative. Overall prognosis extremely poor. 09/17/2020. Fevers have resolved over the past 48 hours. Continue to monitor off antibiotics per ID recommendations. Patient with questionable seizures versus myoclonus from anoxic brain injury. Patient unable to undergo MRI due to body habitus. EEG is nonspecific but given CT of head findings consistent with anoxic encephalopathy, brain injury. Continue AEDs per neurology recommendations. Inflammatory markers elevated. Patient was recently hospitalized for COVID-19 pneumonia at the [place] prior to being hospitalized [place]. Patient not a candidate for remdesivir due to hepatic and renal failure. Viral hepatitis panel negative. Patient is s/p emergent HD on Friday (hyperK) and Friday - 09/08. Patient also S/p HD 09/15. Continue hemodialysis per nephrology recommendations. Patient currently on AC/PRVC mode ventilation with rate of 30, tidal volume 475, FiO2 30% and PEEP of 6. As stated in neuro note, overall prognosis is very poor. 09/18/2020. Fevers have resolved over the past 72 hours. Continue to monitor off antibiotics per ID recommendations. Leukocytosis persistent for the past 4 days. Patient with questionable seizures/myoclonus from anoxic brain injury. Patient unable to undergo MRI due to body habitus. EEG is nonspecific but given CT of head findings consistent with anoxic encephalopathy, brain injury. Continue AEDs per neurology recommendations. Inflammatory markers elevated. Patient was recently hospitalized for [place]. Patient not a candidate for remdesivir due to hepatic and renal failure. Viral hepatitis panel negative. Patient currently on AC/PRVC mode ventilation with rate of 30, tidal volume 475, FiO2 30% and PEEP of 6. Overall prognosis remains guarded/poor. 09/19/2020 Fevers have resolved over the past 4 days. Continue to monitor off antibiotics per ID recommendations. Leukocytosis persistent for the past 4 days. Patient with questionable seizures/myoclonus from anoxic brain injury. Patient unable to undergo MRI due to body habitus. EEG is nonspecific but given CT of head findings consistent with anoxic encephalopathy, brain injury. Continue AEDs per neurology recommendations. Inflammatory markers elevated. Patient was recently hospitalized for [place]19 pneumonia [place] the [place]. Patient not a candidate for remdesivir due to hepatic and renal failure. Viral hepatitis panel negative. Patient currently on AC/PRVC mode ventilation with rate of 30, tidal volume 475, FiO2 30% and PEEP of 6. Overall prognosis remains guarded/poor. 09/20/2020 -Surgery consulted for PEG and trach, will continue to follow. 09/21/2020; patient will have PEG and trach by Dr. hayes today. Prognosis is poor. Continue with current management. [facility] is following for vent management. 09/22/2020; patient had PEG and trach yesterday. 09/23/2020; continue PEG Tube Feeding. 09/24/2020; continue PEG tube feeding, patient is on Keppra, lorazepam and phenytoin per neurology recommendation. Patient is on hemodialysis and nephrology is following. Management of mechanical ventilation for CCM. 09/25/2020. Continue PEG tube feeding, patient is on Keppra, lorazepam and phenytoin per neurology recommendation. Patient is on hemodialysis and nephrology is following. Management of mechanical ventilation for CCM. Continue PSV/CPAP 12/6. Continue tracheostomy care, secretion control and airway management. 09/26/2020. Patient has tolerated PSV for approximately 48 hours. I discussed with pulmonary possibility of T-piece today. Continue tracheostomy care, secretion control and airway management. If patient tolerates T-piece trials, patient will be transferred to the floor. Continue AEDs of Keppra and phenytoin as well as Ativan as needed per neurology recommendations. Continue hemodialysis per nephrology. Continue TF with aspiration precautions. 09/27/2020. Patient continues to tolerate PSV 07/16 at 30% FiO2. T-piece trials per pulmonary. Continue tracheostomy care, secretion control and airway management. Continue AEDs of Keppra and phenytoin as well as Ativan as needed per neurology recommendations. Continue hemodialysis per nephrology. Continue TF with aspiration precautions. 09/28/2020. Patient for T-piece trials per pulmonary. Continue hemodialysis per nephrology. Continue tracheostomy care, secretion control and airway management. Continue AEDs of Keppra and phenytoin as well as Ativan as needed per neurology recommendations. Continue TF with aspiration precautions. 09/29/2020, continue T-piece trials per pulmonary. Continue hemodialysis per nephrology. Continue strict I/O's and labs daily. Monitor for renal recovery. 09/30/2020. Continue T-piece trials per pulmonary recommendations. Continue tracheostomy care, secretion control and airway management. Continue hemodialysis per nephrology. Tight glycemic control. Continue TF with aspiration precautions. 10/01/2020. Patient with T-piece trials and tolerating. Wean to trach collar per pulmonary. Continue tracheostomy care, secretion control and airway management. Continue hemodialysis per nephrology. Tight glycemic control. Continue TF with aspiration precautions. Case management consultation for placement 10/02/20. Continue T-piece trials per pulmonary recommendations. Continue tracheostomy care, secretion control and airway management. Continue hemodialysis per nephrology. Tight glycemic control. Continue TF with aspiration precautions. 10/03/2020. Continue T-piece trials per pulmonology. Continue tracheostomy care, secretion control and airway management. Continue modalities per nephrology. Discharge planning underway. Needs placement to SNF versus hospice. 10/04/2020. Patient remained febrile with temperature 101 F. Ordered blood culture, chest x-ray, urinalysis. Plan to start antibiotics after blood cultures been obtained. Patient remains hemodynamically stable. Plan to discharge to SNF versus inpatient hospice on the way. 10/05/2020. Started on antibiotics yesterday. Awaiting blood culture. He developed atrial fibrillation with RVR and was placed on amiodaron see awaiting placement. E drip with subsequent conversion to SR. Now on amiodarone PO. Discussed with patients - she would like him to go inpatient hospice or a residential care facility. As per CM, [facility] not approving LTC placement at this time. As is still undecided about hospice, inpatient hospice is not accepting h im at this time. has placed a referral to a SNF with inpatient dialysis. Awaiting response from the SNF. 10/06/2020. Hb drop noted. Not on therapeutic anticoagulation [atrial fibrillation] due to duration of atrial fibrillation [lasted less than 2 hours] and also drop in hemoglobin. Continue to monitor hemoglobin. Repeat labs ord ered today. Vitals stable. Discussed with patient's yesterday 10/07. HR is controlled. Pending placement. As per CM notes, patient denied acceptance at a [facility] as he has [place] insurance. Will discuss with CM to know other options are available. 10/08. Vitals stable. Will discuss discharge plan with spouse today as it looks like only option left is inpatient hospice. 10/09. Vitals stable. Will discuss discharge plan with spouse today as it looks like only option left is inpatient hospice 10/10. Discussed with patient spouse. Patient spouse asking to see patient in the hospital. manager language on board. Patient has not had hemodialysis since 10/05. Creatinine stable at 4.6. Nephrology on board 10/11. DC planning underway. Patient spouse to see patient in hospital today. Vitals remained stable. Creatinine stable as well. Increase Lantus to 36 units daily. History Interval history: 65 y/o male with out of hospital cardiac arrest, acute hypoxic respiratory failure and COVID-19 infection. Hospitalist Physical - Physical exam Narrative exam: VITAL SIGNS: Reviewed. GENERAL: Not responsive HEAD: No signs of head trauma. EYES: Closed MOUTH: Oropharynx is normal. NECK: No adenopathy, no JVD. CHEST: Diminished breath sounds with crackles bilaterally CARDIAC: normal S1 and S2, without murmurs, gallops, or rubs. ABDOMEN: Soft, non tender and non distended. No rebound or guarding, and no masses palpated. Bowel Sounds normal. MUSCULOSKELETAL: Bilateral leg edema NEUROLOGIC EXAM: Not responsive SKIN: No obvious lesions - Constitutional Vitals: Temp Pulse Resp BP Pulse Ox 97.5 F L 79 18 123/62 93 10/11/20 09:28 10/11/20 09:28 10/11/20 09:28 10/11/20 09:28 10/11/20 09:28 HEART Score - HEART Score Troponin: Troponin T 0.076 ng/mL (0.00-0.029) H 09/07/20 14:00 Results - Labs CBC & Chem 7: 10/06/20 10:12 10/12/20 04:38 Labs: Laboratory Last Values WBC 7.1 K/mm3 (4.5-11.0) 10/06/20 10:12 RBC 2.92 M/mm3 (3.65-5.03) L 10/06/20 10:12 Hgb 8.4 gm/dl (11.8-15.2) L 10/06/20 10:12 Hct 24.7 % (35.5-45.6) L 10/06/20 10:12 MCV 85 fl (84-94) 10/06/20 10:12 MCH 29 pg (28-32) 10/06/20 10:12 MCHC 34 % (32-34) 10/06/20 10:12 RDW 18.1 % (13.2-15.2) H 10/06/20 10:12 Plt Count 182 K/mm3 (140-440) 10/06/20 10:12 Lymph % (Auto) 27.0 % (13.4-35.0) 10/01/20 04:33 Dunn % (Auto) Facilities Locator 10/06/20 10:12 Eos % (Auto) 1.4 % (0.0-4.3) 10/01/20 04:33 Baso % (Auto) 0.3 % (0.0-1.8) 10/01/20 04:33 Lymph # (Auto) 1.9 K/mm3 (1.2-5.4) 10/01/20 04:33 Dunn # (Auto) 1.2 K/mm3 (0.0-0.8) H 10/01/20 04:33 Eos # (Auto) 0.1 K/mm3 (0.0-0.4) 10/01/20 04:33 Baso # (Auto) 0.0 K/mm3 (0.0-0.1) 10/01/20 04:33 Add Manual Diff Complete 10/06/20 10:12 Total Counted 100 10/06/20 10:12 Seg Neutrophils % 54.7 % (40.0-70.0) 10/01/20 04:33 Seg Neuts % (Manual) 65.0 % (40.0-70.0) 10/06/20 10:12 Band Neutrophils % 8.0 % 09/30/20 06:57 Lymphocytes % (Manual) 26.0 % (13.4-35.0) 10/06/20 10:12 Monocytes % (Manual) 6.0 % (0.0-7.3) 10/06/20 10:12 Eosinophils % (Manual) 3.0 % (0.0-4.3) 10/06/20 10:12 Basophils % (Manual) 1.0 % (0.0-1.8) 09/30/20 06:57 Metamyelocytes % 2.0 % 09/08/20 Unknown Promyelocytes % 0 % 10/04/20 10:32 Nucleated RBC % Not Reportable 10/06/20 10:12 Seg Neutrophils # 3.9 K/mm3 (1.8-7.7) 10/01/20 04:33 Seg Neutrophils # Man 4.6 K/mm3 (1.8-7.7) 10/06/20 10:12 Band Neutrophils # 0.0 K/mm3 10/06/20 10:12 Lymphocytes # (Manual) 1.8 K/mm3 (1.2-5.4) 10/06/20 10:12 Abs React Lymphs (Man) 0.0 K/mm3 10/06/20 10:12 Monocytes # (Manual) 0.4 K/mm3 (0.0-0.8) 10/06/20 10:12 Eosinophils # (Manual) 0.2 K/mm3 (0.0-0.4) 10/06/20 10:12 Basophils # (Manual) 0.0 K/mm3 (0.0-0.1) 10/06/20 10:12 Metamyelocytes # 0.0 K/mm3 10/06/20 10:12 Myelocytes # 0.0 K/mm3 10/06/20 10:12 Promyelocytes # 0.0 K/mm3 10/06/20 10:12 Blast Cells # 0.0 K/mm3 10/06/20 10:12 WBC Morphology Not Reportable 10/06/20 10:12 Hypersegmented Neuts Not Reportable 10/06/20 10:12 Hyposegmented Neuts Not Reportable 10/06/20 10:12 Hypogranular Neuts Not Reportable 10/06/20 10:12 Smudge Cells Not Reportable 10/06/20 10:12 Toxic Granulation Not Reportable 10/06/20 10:12 Toxic Vacuolation Not Reportable 10/06/20 10:12 Dohle Bodies Not Reportable 10/06/20 10:12 Pelger-Huet Anomaly Not Reportable 10/06/20 10:12 Justus Rods Not Reportable 10/06/20 10:12 Platelet Estimate Consistent w auto 10/06/20 10:12 Clumped Platelets Not Reportable 10/06/20 10:12 Plt Clumps, EDTA Not Reportable 10/06/20 10:12 Large Platelets Not Reportable 10/06/20 10:12 Giant Platelets Not Reportable 10/06/20 10:12 Platelet Satelliting Not Reportable 10/06/20 10:12 Plt Morphology Comment Not Reportable 10/06/20 10:12 RBC Morphology Not Reportable 10/06/20 10:12 Dimorphic RBCs Not Reportable 10/06/20 10:12 Polychromasia Not Reportable 10/06/20 10:12 Hypochromasia Not Reportable 10/06/20 10:12 Poikilocytosis Not Reportable 10/06/20 10:12 Anisocytosis 1+ 10/06/20 10:12 Microcytosis Not Reportable 10/06/20 10:12 Macrocytosis Not Reportable 10/06/20 10:12 Spherocytes Not Reportable 10/06/20 10:12 Pappenheimer Bodies Not Reportable 10/06/20 10:12 Sickle Cells Not Reportable 10/06/20 10:12 Target Cells Not Reportable 10/06/20 10:12 Tear Drop Cells Not Reportable 10/06/20 10:12 Ovalocytes Not Reportable 10/06/20 10:12 Helmet Cells Not Reportable 10/06/20 10:12 [place] Bodies Not Reportable 10/06/20 10:12 Jemison Rings Not Reportable 10/06/20 10:12 Manjit Cells Not Reportable 10/06/20 10:12 Bite Cells Not Reportable 10/06/20 10:12 Crenated Cell Not Reportable 10/06/20 10:12 Elliptocytes Not Reportable 10/06/20 10:12 Acanthocytes (Spur) Not Reportable 10/06/20 10:12 Rouleaux Not Reportable 10/06/20 10:12 Hemoglobin C Crystals Not Reportable 10/06/20 10:12 Schistocytes Not Reportable 10/06/20 10:12 Malaria parasites Not Reportable 10/06/20 10:12 Tommie Bodies Not Reportable 10/06/20 10:12 Hem Pathologist Commnt No 10/06/20 10:12 PT 16.1 Sec. (12.2-14.9) H 09/12/20 04:00 INR 1.31 (0.87-1.13) H 09/12/20 04:00 APTT 32.4 Sec. (24.2-36.6) 09/09/20 10:00 D-Dimer 8315.85 ng/mlDDU (0-234) H 09/07/20 14:00 ABG pH 7.468 (7.320-7.450) H 10/02/20 10:16 POC ABG pCO2 37.1 mmHg (32.0-48.0) 10/02/20 10:16 ABG pCO2 33.4 mm Hg 09/11/20 05:40 POC ABG pO2 72.9 mmHg (83-108) L 10/02/20 10:16 ABG pO2 112.1 mm Hg (80.0-90.0) H 09/11/20 05:40 POC ABG HCO3 26.3 10/02/20 10:16 ABG HCO3 28.1 mmol/L (20.0-26.0) H 09/11/20 05:40 ABG O2 Saturation 98.4 % (95.0-99.0) 09/11/20 05:40 ABG O2 Content 11.6 (0.0-44) 09/11/20 05:40 POC ABG Base Excess 2.6 10/02/20 10:16 ABG Base Excess 5.4 mmol/L (-2.0-3.0) H 09/11/20 05:40 ABG Hemoglobin 10.1 (12.0-17.5) L 10/02/20 10:16 ABG Oxyhemoglobin 93.1 (94-98) L 10/02/20 10:16 ABG Carboxyhemoglobin 1.2 % (0.0-5.0) 09/11/20 05:40 ABG Methemoglobin 0.3 (0.0-1.5) 10/02/20 10:16 ABG Sodium 138.5 mmol/L (136.0-145.0) 10/02/20 10:16 ABG Potassium 3.9 mmol/L (3.40-4.50) 10/02/20 10:16 ABG Chloride 108.0 mmol/L (98-107) H 10/02/20 10:16 ABG Glucose 289 mg/dL (65-95) H 10/02/20 10:16 Oxyhemoglobin 96.8 % (95.0-99.0) 09/11/20 05:40 Carboxyhemoglobin 0.8 (0.5-1.5) 10/02/20 10:16 FiO2 35 10/02/20 10:16 Sodium 133 mmol/L (137-145) L 10/11/20 04:50 Potassium 3.9 mmol/L (3.6-5.0) 10/11/20 04:50 Chloride 96.3 mmol/L (98-107) L 10/11/20 04:50 Carbon Dioxide 27 mmol/L (22-30) 10/11/20 04:50 Anion Gap 14 mmol/L 10/11/20 04:50 BUN 89 mg/dL (9-20) H 10/11/20 04:50 Creatinine 4.5 mg/dL (0.8-1.3) H 10/11/20 04:50 Estimated GFR 16 ml/min 10/11/20 04:50 BUN/Creatinine Ratio 20 % 10/11/20 04:50 Glucose 251 mg/dL (75-100) H 10/11/20 04:50 POC Glucose 242 mg/dL (70-105) H 10/11/20 05:55 Lactic Acid 2.90 mmol/L (0.7-2.0) H* 09/17/20 13:52 Calcium 9.7 mg/dL (8.4-10.2) 10/11/20 04:50 Phosphorus 8.00 mg/dL (2.5-4.5) H 09/08/20 12:02 Magnesium 1.80 mg/dL (1.7-2.3) 09/08/20 12:02 Ferritin > 2000.0 ng/mL (30.0-300.0) H 09/07/20 14:00 Total Bilirubin 0.30 mg/dL (0.1-1.2) 10/06/20 10:12 Direct Bilirubin 0.5 mg/dL (0-0.2) H 09/08/20 05:00 Indirect Bilirubin 0.5 mg/dL 09/08/20 05:00 AST 52 units/L (5-40) H 10/06/20 10:12 ALT 28 units/L (7-56) 10/06/20 10:12 Alkaline Phosphatase 94 units/L (35-129) 10/06/20 10:12 Ammonia 50.0 umol/L (25-60) 09/07/20 14:00 Lactate Dehydrogenase 882 units/L (91-180) H 09/07/20 14:00 Total Creatine Kinase 477 units/L (55-170) H 09/07/20 14:00 Troponin T 0.076 ng/mL (0.00-0.029) H 09/07/20 14:00 C-Reactive Protein 1.10 mg/dL (0.00-1.30) 09/07/20 14:00 Total Protein 8.4 g/dL (6.3-8.2) H 10/06/20 10:12 Albumin 2.3 g/dL (3.9-5) L 10/06/20 10:12 Albumin/Globulin Ratio 0.4 % 10/06/20 10:12 Triglycerides 220 mg/dL (2-149) H 09/12/20 Unknown Procalcitonin 1.16 ng/mL (<0.15) 10/04/20 10:32 TSH 2.290 mlU/mL (0.270-4.200) 09/07/20 14:00 Arterial Blood Glucose 289 mg/dL (65-95) H 10/02/20 10:16 Arterial Blood Ionized Calcium 5.2 mg/dL (4.6-5.3) 10/02/20 10:16 Urine Color Yellow (Yellow) 10/05/20 09:15 Urine Turbidity Slightly-cloudy (Clear) 10/05/20 09:15 Urine pH 5.0 (5.0-7.0) 10/05/20 09:15 Ur Specific [place] 1.015 (1.003-1.030) 10/05/20 09:15 Urine Protein 30 mg/dl mg/dL (Negative) 10/05/20 09:15 Urine Glucose (UA) Neg mg/dL (Negative) 10/05/20 09:15 Urine Ketones Neg mg/dL (Negative) 10/05/20 09:15 Urine Blood Sm (Negative) 10/05/20 09:15 Urine Nitrite Neg (Negative) 10/05/20 09:15 Urine Bilirubin Neg (Negative) 10/05/20 09:15 Urine Urobilinogen < 2.0 mg/dL (<2.0) 10/05/20 09:15 Ur Leukocyte Esterase Neg (Negative) 10/05/20 09:15 Urine WBC (Auto) 13.0 /HPF (0.0-6.0) H 10/05/20 09:15 Urine RBC (Auto) 19.0 /HPF (0.0-6.0) 10/05/20 09:15 U Epithel Cells (Auto) 6.0 /HPF (0-13.0) 10/05/20 09:15 Urine Bacteria (Auto) 2+ /HPF (Negative) 10/05/20 09:15 Hyaline Casts 1 /LPF 10/05/20 09:15 Urine Mucus Few /HPF 10/05/20 09:15 Urine Yeast (Budding) 3+ /HPF 10/05/20 09:15 Urine Sperm 3+ /HPF (MANUFACTURING TEACHER) 09/07/20 13:08 Urine Creatinine 182.4 mg/dL (0.1-20.0) H 09/08/20 Unknown Urine Sodium 40 mmol/L 09/08/20 Unknown Salicylates < 0.3 mg/dL (2.8-20.0) L 09/07/20 14:00 Acetaminophen 5.0 ug/mL (10.0-30.0) L 09/07/20 14:00 Valproic Acid 58.9 ug/mL (50-100) 10/04/20 04:55 Plasma/Serum Alcohol < 0.01 % (0-0.07) 09/07/20 14:00 Coronavirus (PCR) Negative (Negative) 10/03/20 10:01 Hepatitis A IgM Ab Non-reactive (NonReactive) 09/07/20 14:00 Hep Bs Antigen Non-reactive (Negative) 09/07/20 14:00 Hep B Core IgM Ab Non-reactive (NonReactive) 09/07/20 14:00 Hepatitis C Antibody Non-reactive (NonReactive) 09/07/20 14:00 HIV 1&2 Antibody Rapid Non react (Non React) 09/07/20 14:34 HIV P24 Antigen Non react (Non React) 09/07/20 14:34 Blood Type O POSITIVE 09/09/20 10:00 Antibody Screen Negative 09/07/20 14:00 Mae/IV: Voiding Method Condom Catheter IV Catheter Type [Right Triple Lumen Cath Femoral] IV Catheter Type [Left Peripheral IV Antecubital] IV Catheter Type [Left Hand] Peripheral IV IV Catheter Type [Right Peripheral IV Antecubital] Active Medications - Current Medications Current Medications: Generic Name Dose Route Start Last Admin Trade Name Freq PRN Reason Stop Dose Admin Acetaminophen 650 mg 10/02/20 09:00 10/04/20 05:10 Acetaminophen 325 Mg/10.15 Ml Oral Liqd Unit Dose PO 650 mg Q4HR PRN Administration Non Cardiac Pain or Temp>100.5 Amiodarone HCl 200 mg 10/05/20 11:00 10/11/20 10:18 Amiodarone 200 Mg Tab PO 200 mg BID TAYLOR Administration Lipase/Protease/Amylase 1 each 09/09/20 09:40 Lipase 10,500/Protease 25,000/Amylase 43,750 (Units) Dr Armenta FEEDTUBE PRN PRN For Clogged Feeding Tube Hydralazine HCl 50 mg 09/23/20 14:00 03/03/21 05:42 Hydralazine 25 Mg Tab PO 50 mg Q8HR TAYLOR Administration Sodium Chloride 100 mls @ 999 mls/hr 09/09/20 13:36 Nacl 0.9% IV JAYJAY PRN Hypotension Cefepime HCl 2 gm in 100 mls @ 200 mls/hr 10/05/20 22:00 10/10/20 22:07 Cefepime/Ns 2 Gm/100 Ml IV 10/11/20 22:29 200 mls/hr Q24H TAYLOR Administration Protocol Insulin Glargine 30 units 10/07/20 10:00 10/11/20 10:19 Insulin Glargine 100 Units/Ml SUB-Q 30 units DAILY TAYLOR Administration Insulin Human Lispro 0 unit 09/12/20 12:00 10/11/20 06:22 Insulin Lispro 100 Unit/Ml SUB-Q 4 unit Q6HR TAYLOR Administration Protocol Lansoprazole 30 mg 09/11/20 11:00 10/11/20 10:17 Lansoprazole 30 Mg Solutab FEEDTUBE 30 mg BID TAYLOR Administration Levetiracetam 1,500 mg 09/28/20 10:00 10/11/20 10:17 Levetiracetam 500 Mg/5 Ml Oral Liqd PO 1,500 mg BID TAYLOR Administration Multivitamins 5 ml 09/09/20 12:00 10/11/20 10:57 Multivitamins 5 Ml Oral Liquid PO Not Given QDAY [facility] Ondansetron HCl 4 mg 09/07/20 17:55 09/19/20 04:00 Ondansetron 4 Mg/2 Ml Inj IV 4 mg Q8H PRN Administration Nausea And Vomiting Senna/Docusate Sodium 2 tab 09/20/20 11:00 Sennosides/Docusate Sodium 8.6/50 Mg Tab PO BID PRN Laxative Effect Simple Syrup 15 ml 09/09/20 09:40 09/17/20 17:43 Simple Syrup 15 Ml FEEDTUBE 15 ml PRN PRN Administration Hypoglycemia Simple Syrup 30 ml 09/09/20 09:40 Simple Syrup 15 Ml FEEDTUBE PRN PRN Hypoglycemia Sodium Bicarbonate 325 mg 09/09/20 09:40 Sodium Bicarbonate 325 Mg Tab FEEDTUBE PRN PRN For Clogged Feeding Tube Sodium Chloride 10 ml 09/07/20 22:00 10/11/20 10:19 Sodium Chloride 0.9% 10 Ml Flush Syringe IV 10 ml BID TAYLOR Administration Sodium Chloride 10 ml 09/07/20 17:55 Sodium Chloride 0.9% 10 Ml Flush Syringe IV PRN PRN LINE FLUSH Valproic Acid 1,000 mg 09/28/20 10:00 10/11/20 10:17 Valproic Acid 250 Mg/5 Ml Oral Liqd FEEDTUBE 1,000 mg BID TAYLOR Administration Nutrition/Malnutrition Assess - Dietary Evaluation Nutrition/Malnutrition Findings: Nutrition Notes Start: 09/08/20 12:01 Freq: Status: Active Protocol: Document 10/10/20 12:17 AT (Rec: 10/10/20 12:26 AT [id number]) Co-Sign 10/10/20 12:17 MK Nutrition Notes Initial or Follow up Reassessment Current Diagnosis Acute Kidney Injury, Respiratory Failure Other Pertinent Diagnosis cardiac arrest, COVID (+), metabolic encephalopathy, pneu Current Diet Nepro 1.8 at 45 mL/hr (goal rate) Labs/Tests Na 133 BUN 84 Cr 4.6 BG 208 Pertinent Medications Lantus Humalog Height 6 ft Weight 156 kg Bowie Body Weight (kg) 80.90 BMI 46.6 Weight change and time frame Weight change noted, pt no longer on HD Weight Status Morbidly Obese Subjective/Other Information Follow up for stable TF. Spoke with RN, pt remains tolerating TF and running at goal. Per RN, team is flushing with 200 mL q4h as ordered by MD to compensate for HD cessation. Percent of energy/protein needs met: 100%/64% Burn Absent Trauma Absent GI Symptoms None Difficulty In Swallowing Food Allergy No Skin Integrity/Comment pressure ulcer to lips Current % PO Negligible Minimum of two criteria No Fluid Accumulation Mild (non-severe) #3 Nutrition Diagnosis Increased nutrient needs ( specify in comment below) Diagnosis Progress(for reassessment Continues documentation) #2 Nutrition Diagnosis Increased nutrient needs ( specify in comment below) As Evidenced by Signs and Symptoms pt no longer on HD Diagnosis Progress(for reassessment Resolved documentation) #1 Nutrition Diagnosis Inadequate oral intake Diagnosis Progress(for reassessment Continues documentation) Is patient on ventilator? No Is Patient Ambulatory and/or Out of Bed No REE-(Gilmer-St. Jeor-confined to bed) 2869.872 Kcal/Kg value to use for calculation 12 Approximate Energy Requirements Using 1872 kcal/Kg Calculation Used for Recommendations Kcal/kg Additional Notes PRO needs: 147 -177g (1.25-1.5 g/kg AdBW 118kg) Fluid needs: 2016-6658 mL or per MD Nutrition Intervention Change Diet Order: TF Nutrition Support: Nepro at 45ml/hr Flush with 200mL q4h per MD Kcal 1,944 Protein (gm) 87 Fluid (mL) 785 Goal #1 Meet kcal and protein needs as best as possible via TF Goal #2 Wound healing Anticipated Discharge Needs: TF Follow-Up By: 10/13/20 Additional Comments F/U for stable TF, POC
[2020-10-11] MEDS: ACETAMINOPHEN 325 MG/10.15 ML ORAL LIQD UNIT DOSE PO PRN (23:45)
[2020-10-11] MEDS: CEFEPIME/NS 2 GM/100 ML 2 GM/100 ML BAG IV SCH (23:45)
[2020-10-12] MEDS: INSULIN LISPRO 100 UNIT/ML SUB-Q SCH ×4 (06:41→20:13)
[2020-10-12] MEDS: hydrALAZINE 25 MG TAB PO SCH ×3 (06:42→23:02)
--- NOTE | 2020-10-12 08:49 | Progress Note ---
Subjective Principal diagnosis: Abnormal LFTs, s/p cardiac arrest, acute kidney injury with ATN Objective - Vital Signs Vital signs: Vital Signs - 12hr 10/11/20 10/11/20 10/12/20 21:50 22:00 00:13 Temperature 102.2 F H Pulse Rate 94 H 89 Respiratory 20 Rate Blood Pressure 119/61 O2 Sat by Pulse 92 99 Oximetry O2 Sat by Pulse 97 Oximetry [ Assessment] 10/12/20 10/12/20 10/12/20 00:30 04:46 07:52 Temperature 102.7 F H 102.4 F H 101.5 F H Pulse Rate 95 H 87 86 Respiratory 28 H 24 20 Rate Blood Pressure 102/56 111/57 122/56 O2 Sat by Pulse 91 93 94 Oximetry O2 Sat by Pulse Oximetry [ Assessment] - Lab 10/06/20 10:12 10/12/20 04:38 Most recent lab results ABG pH 7.468 (7.320-7.450) H 10/02/20 10:16 ABG pCO2 33.4 mm Hg 09/11/20 05:40 ABG pO2 112.1 mm Hg (80.0-90.0) H 09/11/20 05:40 ABG HCO3 28.1 mmol/L (20.0-26.0) H 09/11/20 05:40 ABG O2 Saturation 98.4 % (95.0-99.0) 09/11/20 05:40 Calcium 9.0 mg/dL (8.4-10.2) 10/12/20 04:38 Phosphorus 8.00 mg/dL (2.5-4.5) H 09/08/20 12:02 Magnesium 1.80 mg/dL (1.7-2.3) 09/08/20 12:02 Urine Creatinine 182.4 mg/dL (0.1-20.0) H 09/08/20 Unknown Urine Sodium 40 mmol/L 09/08/20 Unknown Medications & Allergies - Medications Allergies/Adverse Reactions: Allergies No Known Allergies Allergy (Verified 09/21/20 21:00) Verified with , no known drug allergies. Home Medications: Home Medications Medication Instructions Recorded Confirmed Last Taken Type Albuterol Sulfate 60 mcg IH PRN 09/11/20 09/11/20 Unknown History Cholecalciferol (Vitamin D3) 25 tab PO DAILY 09/11/20 09/11/20 Unknown History Cozaar 25 tab PO DAILY 09/11/20 09/11/20 Unknown History HumaLOG 14 unit SQ AC 09/11/20 09/11/20 Unknown History Hydralazine HCl 50 tab PO TID 09/11/20 09/11/20 Unknown History Isosorbide Dinitrate 30 mg PO DAILY 09/11/20 09/11/20 Unknown History Lantus VIAL 54 units SQ HS 09/11/20 09/11/20 Unknown History Lasix 20 tab PO DAILY 09/11/20 09/11/20 Unknown History Nifedipine 30 tab PO DAILY 09/11/20 09/11/20 Unknown History Active Medications: Generic Name Dose Route Start Last Admin Trade Name Freq PRN Reason Stop Dose Admin Acetaminophen 650 mg 10/02/20 09:00 10/11/20 23:45 Acetaminophen 325 Mg/10.15 Ml Oral Liqd Unit Dose PO 650 mg Q4HR PRN Administration Non Cardiac Pain or Temp>100.5 Amiodarone HCl 200 mg 10/05/20 11:00 10/11/20 23:45 Amiodarone 200 Mg Tab PO 200 mg BID TAYLOR Administration Lipase/Protease/Amylase 1 each 09/09/20 09:40 Lipase 10,500/Protease 25,000/Amylase 43,750 (Units) Dr Armenta FEEDTUBE PRN PRN For Clogged Feeding Tube Hydralazine HCl 50 mg 09/23/20 14:00 10/12/20 06:42 Hydralazine 25 Mg Tab PO Not Given Q8HR TAYLOR Sodium Chloride 100 mls @ 999 mls/hr 09/09/20 13:36 Nacl 0.9% IV JAYJAY PRN Hypotension Insulin Glargine 36 units 10/11/20 12:00 10/11/20 13:56 Insulin Glargine 100 Units/Ml SUB-Q Not Given DAILY TAYLOR Insulin Human Lispro 0 unit 09/12/20 12:00 10/12/20 08:07 Insulin Lispro 100 Unit/Ml SUB-Q Not Given Q6HR [facility] Protocol Lansoprazole 30 mg 09/11/20 11:00 10/11/20 23:45 Lansoprazole 30 Mg Solutab FEEDTUBE 30 mg BID TAYLOR Administration Levetiracetam 1,500 mg 09/28/20 10:00 10/11/20 23:44 Levetiracetam 500 Mg/5 Ml Oral Liqd PO 1,500 mg BID TAYLOR Administration Multivitamins 5 ml 09/09/20 12:00 10/11/20 10:57 Multivitamins 5 Ml Oral Liquid PO Not Given QDAY TAYLOR Ondansetron HCl 4 mg 09/07/20 17:55 09/19/20 04:00 Ondansetron 4 Mg/2 Ml Inj IV 4 mg Q8H PRN Administration Nausea And Vomiting Senna/Docusate Sodium 2 tab 09/20/20 11:00 Sennosides/Docusate Sodium 8.6/50 Mg Tab PO BID PRN Laxative Effect Simple Syrup 15 ml 09/09/20 09:40 09/17/20 17:43 Simple Syrup 15 Ml FEEDTUBE 15 ml PRN PRN Administration Hypoglycemia Simple Syrup 30 ml 09/09/20 09:40 Simple Syrup 15 Ml FEEDTUBE PRN PRN Hypoglycemia Sodium Bicarbonate 325 mg 09/09/20 09:40 Sodium Bicarbonate 325 Mg Tab FEEDTUBE PRN PRN For Clogged Feeding Tube Sodium Chloride 10 ml 09/07/20 22:00 10/11/20 23:45 Sodium Chloride 0.9% 10 Ml Flush Syringe IV 10 ml BID TAYLOR Administration Sodium Chloride 10 ml 09/07/20 17:55 Sodium Chloride 0.9% 10 Ml Flush Syringe IV PRN PRN LINE FLUSH Valproic Acid 1,000 mg 09/28/20 10:00 10/11/20 23:44 Valproic Acid 250 Mg/5 Ml Oral Liqd FEEDTUBE 1,000 mg BID TAYLOR Administration
[2020-10-12 09:14] LABS: Mean Corpuscular HGB Conc 34 % (32-34); Mean Corpuscular Volume 85 fl (84-94); Platelet Count 228 K/mm3 (140-440); Red Blood Count 1.58 M/mm3 (3.65-5.03); Red Cell Distribution Width 18.5 % (13.2-15.2)
--- NOTE | 2020-10-12 09:14 | XRay Report ---
CHEST - 1 VIEW 0822 hours INDICATION: PNEUMONIA COMPARISON: Yesterday FINDINGS: Support devices: Stable support device positioning. Heart: Stable mild cardiomegaly Lungs/pleura: Stable mild central congestion. The right hemidiaphragm is elevated. The lungs are ailyn ar otherwise. Additional findings: None. IMPRESSION: Unchanged exam. Signer Name: Korey Arnett Jr, MD Signed: 10/12/2020 9:10 AM Workstation Name: [id number]
[2020-10-12 09:20] LABS: Hematocrit 13.4 % (35.5-45.6); Hemoglobin 4.6 gm/dl (11.8-15.2)
[2020-10-12] MEDS: INSULIN GLARGINE 100 UNITS/ML SUB-Q SCH (09:30)
[2020-10-12] MEDS: LANSOPRAZOLE 30 MG SOLUTAB FEEDTUBE SCH ×2 (09:31→23:02)
[2020-10-12] MEDS: VALPROIC ACID 250 MG/5 ML ORAL LIQD FEEDTUBE SCH ×2 (09:31→23:02)
[2020-10-12] MEDS: AMIODARONE 200 MG TAB PO SCH ×2 (09:31→23:03)
[2020-10-12] MEDS: levETIRAcetam 500 MG/5 ML ORAL LIQD PO SCH ×2 (09:31→23:02)
[2020-10-12] MEDS: ACETAMINOPHEN 325 MG/10.15 ML ORAL LIQD UNIT DOSE PO PRN (09:31)
[2020-10-12] MEDS: MULTIVITAMINS 5 ML ORAL LIQUID PO SCH (09:33)
--- NOTE | 2020-10-12 10:07 | Progress Note ---
Assessment and Plan Assessment and plan: #S/p cardiopulmonary arrest (out of hospital) Now poorly responsive with brain damage/anoxic brain injury #Toxic metabolic encephalopathy +/-anoxic injury Persists Now has trach and PEG #Acute hypoxic respiratory failure Continue oxygen supplementation Trach in place #Nonoliguric acute kidney injury secondary to ATN. Patient status post emergent hemodialysis 09/08. Continue hemodialysis as scheduled. Last hemodialysis on 10/05. Creatinine creeping up again. Cr 5.2 Nephrology on board #Seizure disorder Keppra 1500 twice daily Depakote 1000 mg twice daily #COVID-19 pneumonia Status post COVID-19 treatment #Sepsis Has thick brownish secretions from trach. Now has fever and leuckocytosis Blood cultures drawn Start empirical abx ID consulted. #Acute on chronic anemia Hb 4.6 Ordered 2 units PRBCs Check stool guaiac #Diabetes mellitus Glargine 25 units daily Lispro sliding scale #Hypertension Hydralazine 3 times daily #Atrial fibrillation with RVR Converted to sinus rhythm after initiation of amiodarone drip Continue p.o. amiodarone for now Holding therapeutic anticoagulation due to drop in hemoglobin DVT prophylaxis-hold Lovenox Full code Disposition- Patient has poor prognosis. CM and Spouse looking into facilities that will accept his VA insurance. Spouse thinking about assisted care vs Inpatient hospice. Hospital course 09/15/2020. MRI brain for further evaluation. Continue AEDs of valproic acid and Keppra. Continue hemodialysis per nephrology recommendations. Overall prognosis remains guarded and poor. 09/16/2020. ID recommends continue to monitor patient off of antibiotics. Fever most likely of central etiology. Patient with questionable seizures versus myoclonus from anoxic brain injury. Patient unable to undergo MRI due to body habitus. Continue AEDs per neurology recommendations. Inflammatory markers elevated. Patient was recently hospitalized for [place]. Patient not a candidate for remdesivir due to hepatic and renal failure. Viral hepatitis panel negative. Overall prognosis extremely poor. 09/17/2020. Fevers have resolved over the past 48 hours. Continue to monitor off antibiotics per ID recommendations. Patient with questionable seizures versus myoclonus from anoxic brain injury. Patient unable to undergo MRI due to body habitus. EEG is nonspecific but given CT of head findings consistent with anoxic encephalopathy, brain injury. Continue AEDs per neurology recommendations. Inflammatory markers elevated. Patient was recently hospitalized for COVID-[place] pneumonia [place] [facility] [place] [facility] [place] [facility] [place]. Patient not a candidate for remdesivir due to hepatic and renal failure. Viral hepatitis panel negative. Patient is s/p emergent HD on Friday (hyperK) and Friday - 09/08. Patient also S/p HD 09/15. Continue hemodialysis per nephrology recommendations. Patient currently on AC/PRVC mode ventilation with rate of 30, tidal volume 475, FiO2 30% and PEEP of 6. As stated in neuro note, overall prognosis is very poor. 09/18/2020. Fevers have resolved over the past 72 hours. Continue to monitor off antibiotics per ID recommendations. Leukocytosis persistent for the past 4 days. Patient with questionable seizures/myoclonus from anoxic brain injury. Patient unable to undergo MRI due to body habitus. EEG is nonspecific but given CT of head findings consistent with anoxic encephalopathy, brain injury. Continue AEDs per neurology recommendations. Inflammatory markers elevated. Patient was recently hospitalized for [place] pneumonia [place] [facility] [place] [facility] [place]. Patient not a candidate for remdesivir due to hepatic and renal failure. Viral hepatitis panel negative. Patient currently on AC/PRVC mode ventilation with rate of 30, tidal volume 475, FiO2 30% and PEEP of 6. Overall prognosis remains guarded/poor. 09/19/2020 Fevers have resolved over the past 4 days. Continue to monitor off antibiotics per ID recommendations. Leukocytosis persistent for the past 4 days. Patient with questionable seizures/myoclonus from anoxic brain injury. Patient unable to undergo MRI due to body habitus. EEG is nonspecific but given CT of head findings consistent with anoxic encephalopathy, brain injury. Continue AEDs per neurology recommendations. Inflammatory markers elevated. Patient was recently hospitalized for [place] pneumonia [place] [facility] [place] [facility] [place] [facility] [place]. Patient not a candidate for remdesivir due to hepatic and renal failure. Viral hepatitis panel negative. Patient currently on AC/PRVC mode ventilation with rate of 30, tidal volume 475, FiO2 30% and PEEP of 6. Overall prognosis remains guarded/poor. 09/20/2020 -Surgery consulted for PEG and trach, will continue to follow. 09/21/2020; patient will have PEG and trach by Dr. hayes today. Prognosis is poor. Continue with current management. Pharmacist In Charge Owner is following for vent management. 09/22/2020; patient had PEG and trach yesterday. 09/23/2020; continue PEG Tube Feeding. 09/24/2020; continue PEG tube feeding, patient is on Keppra, lorazepam and phenytoin per neurology recommendation. Patient is on hemodialysis and nephrology is following. Management of mechanical ventilation for CCM. 09/25/2020. Continue PEG tube feeding, patient is on Keppra, lorazepam and phenytoin per neurology recommendation. Patient is on hemodialysis and nephrology is following. Management of mechanical ventilation for CCM. Continue PSV/CPAP 07/16. Continue tracheostomy care, secretion control and airway management. 09/26/2020. Patient has tolerated PSV for approximately 48 hours. I discussed with pulmonary possibility of T-piece today. Continue tracheostomy care, secretion control and airway management. If patient tolerates T-piece trials, patient will be transferred to the floor. Continue AEDs of Keppra and phenytoin as well as Ativan as needed per neurology recommendations. Continue hemodialysis per nephrology. Continue TF with aspiration precautions. 09/27/2020. Patient continues to tolerate PSV 07/16 at 30% FiO2. T-piece trials per pulmonary. Continue tracheostomy care, secretion control and airway management. Continue AEDs of Keppra and phenytoin as well as Ativan as needed per neurology recommendations. Continue hemodialysis per nephrology. Continue TF with aspiration precautions. 09/28/2020. Patient for T-piece trials per pulmonary. Continue hemodialysis per nephrology. Continue tracheostomy care, secretion control and airway management. Continue AEDs of Keppra and phenytoin as well as Ativan as needed per neurology recommendations. Continue TF with aspiration precautions. 09/29/2020, continue T-piece trials per pulmonary. Continue hemodialysis per nephrology. Continue strict I/O's and labs daily. Monitor for renal recovery. 09/30/2020. Continue T-piece trials per pulmonary recommendations. Continue tracheostomy care, secretion control and airway management. Continue hemodialysis per nephrology. Tight glycemic control. Continue TF with aspiration precautions. 10/01/2020. Patient with T-piece trials and tolerating. Wean to trach collar per pulmonary. Continue tracheostomy care, secretion control and airway management. Continue hemodialysis per nephrology. Tight glycemic control. Continue TF with aspiration precautions. Case management consultation for placement 10/02/20. Continue T-piece trials per pulmonary recommendations. Continue tracheostomy care, secretion control and airway management. Continue hemodialysis per nephrology. Tight glycemic control. Continue TF with aspiration precautions. 10/03/2020. Continue T-piece trials per pulmonology. Continue tracheostomy care, secretion control and airway management. Continue modalities per nephrology. Discharge planning underway. Needs placement to SNF versus hospice. 10/04/2020. Patient remained febrile with temperature 101 F. Ordered blood culture, chest x-ray, urinalysis. Plan to start antibiotics after blood cultures been obtained. Patient remains hemodynamically stable. Plan to discharge to SNF versus inpatient hospice on the way. 10/05/2020. Started on antibiotics yesterday. Awaiting blood culture. He developed atrial fibrillation with RVR and was placed on amiodaron see awaiting placement. E drip with subsequent conversion to SR. Now on amiodarone PO. Discu ssed with patients - she would like him to go inpatient hospice or a fixed wing aircraft flight mechanic care facility. As per CM, VA not approving LTC placement at this time. As is still undecided about hospice, inpatient hospice is not accepting h im at this time. CM has placed a referral to a SNF with inpatient dialysis. Awaiting response from the SNF. 10/06/2020. Hb drop noted. Not on therapeutic anticoagulation [atrial fibrillation] due to duration of atrial fibrillation [lasted less than 2 hours] and also drop in hemoglobin. Continue to monitor hemoglobin. Repeat labs ordered today. Vitals stable. Discussed with patient's yesterday 10/07. HR is controlled. Pending placement. As per CM notes, patient denied acceptance at a [facility] as he has VA insurance. Will discuss with CM to know other options are available. 10/08. Vitals stable. Will discuss discharge plan with spouse today as it looks like only option left is inpatient hospice. 10/09. Vitals stable. Will discuss discharge plan with spouse today as it looks like only option left is inpatient hospice 10/10. Discussed with patient spouse. Patient spouse asking to see patient in the hospital. manager metrology on board. Patient has not had hemodialysis since 10/05. Creatinine stable at 4.6. Nephrology on board 10/11. DC planning underway. Patient spouse to see patient in hospital today. Vitals remained stable. Creatinine stable as well. Increase Lantus to 36 units daily. 10/12. Patient started having fever yesterday-temp 102 Fahrenheit. Stat blood cultures were drawn today, urinalysis, urine culture, chest x-ray, procalcitonin ordered. Start on empirical antibiotics for possible hospital acquired pneumonia. ID consulted. H&H shows hemoglobin 4.6 patient will receive 2 units PRBCs.. Check H&H after admission. Check stool guaiac. History Interval history: 65 y/o male with out of hospital cardiac arrest, acute hypoxic respiratory failure and COVID-19 infection. Prognosis very poor. Unresponsive. Hospitalist Physical - Physical exam Narrative exam: VITAL SIGNS: Reviewed. GENERAL: Not responsive HEAD: No signs of head trauma. EYES: Closed MOUTH: Oropharynx is normal. NECK: No adenopathy, no JVD. Trach in place. thick secretions from trach CHEST: Diminished breath sounds with crackles bilaterally CARDIAC: normal S1 and S2, without murmurs, gallops, or rubs. ABDOMEN: Soft, non tender and non distended. No rebound or guarding, and no masses palpated. Bowel Sounds normal. MUSCULOSKELETAL: Bilateral leg edema NEUROLOGIC EXAM: Not responsive SKIN: No obvious lesions - Constitutional Vitals: Temp Pulse Resp BP Pulse Ox 101.5 F H 86 20 122/56 94 10/12/20 07:52 10/12/20 07:52 10/12/20 07:52 10/12/20 07:52 10/12/20 07:52 HEART Score - HEART Score Troponin: Troponin T 0.076 ng/mL (0.00-0.029) H 09/07/20 14:00 Results - Labs CBC & Chem 7: 10/12/20 08:36 10/12/20 04:38 Labs: Laboratory Last Values WBC 14.1 K/mm3 (4.5-11.0) H 10/12/20 08:36 RBC 1.58 M/mm3 (3.65-5.03) L 10/12/20 08:36 Hgb 4.6 gm/dl (11.8-15.2) L* 10/12/20 08:36 Hct 13.4 % (35.5-45.6) L* 10/12/20 08:36 MCV 85 fl (84-94) 10/12/20 08:36 MCH 29 pg (28-32) 10/12/20 08:36 MCHC 34 % (32-34) 10/12/20 08:36 RDW 18.5 % (13.2-15.2) H 10/12/20 08:36 Plt Count 228 K/mm3 (140-440) 10/12/20 08:36 Lymph % (Auto) 27.0 % (13.4-35.0) 10/01/20 04:33 [place] % (Auto) Neonatal Pediatric Nurse 10/06/20 10:12 Eos % (Auto) 1.4 % (0.0-4.3) 10/01/20 04:33 Baso % (Auto) 0.3 % (0.0-1.8) 10/01/20 04:33 Lymph # (Auto) 1.9 K/mm3 (1.2-5.4) 10/01/20 04:33 [place] # (Auto) 1.2 K/mm3 (0.0-0.8) H 10/01/20 04:33 Eos # (Auto) 0.1 K/mm3 (0.0-0.4) 10/01/20 04:33 Baso # (Auto) 0.0 K/mm3 (0.0-0.1) 10/01/20 04:33 Add Manual Diff Complete 10/06/20 10:12 Total Counted 100 10/06/20 10:12 Seg Neutrophils % 54.7 % (40.0-70.0) 10/01/20 04:33 Seg Neuts % (Manual) 65.0 % (40.0-70.0) 10/06/20 10:12 Band Neutrophils % 8.0 % 09/30/20 06:57 Lymphocytes % (Manual) 26.0 % (13.4-35.0) 10/06/20 10:12 Monocytes % (Manual) 6.0 % (0.0-7.3) 10/06/20 10:12 Eosinophils % (Manual) 3.0 % (0.0-4.3) 10/06/20 10:12 Basophils % (Manual) 1.0 % (0.0-1.8) 09/30/20 06:57 Metamyelocytes % 2.0 % 09/08/20 Unknown Promyelocytes % 0 % 10/04/20 10:32 Nucleated RBC % Not Reportable 10/06/20 10:12 Seg Neutrophils # 3.9 K/mm3 (1.8-7.7) 10/01/20 04:33 Seg Neutrophils # Man 4.6 K/mm3 (1.8-7.7) 10/06/20 10:12 Band Neutrophils # 0.0 K/mm3 10/06/20 10:12 Lymphocytes # (Manual) 1.8 K/mm3 (1.2-5.4) 10/06/20 10:12 Abs React Lymphs (Man) 0.0 K/mm3 10/06/20 10:12 Monocytes # (Manual) 0.4 K/mm3 (0.0-0.8) 10/06/20 10:12 Eosinophils # (Manual) 0.2 K/mm3 (0.0-0.4) 10/06/20 10:12 Basophils # (Manual) 0.0 K/mm3 (0.0-0.1) 10/06/20 10:12 Metamyelocytes # 0.0 K/mm3 10/06/20 10:12 Myelocytes # 0.0 K/mm3 10/06/20 10:12 Promyelocytes # 0.0 K/mm3 10/06/20 10:12 Blast Cells # 0.0 K/mm3 10/06/20 10:12 WBC Morphology Not Reportable 10/06/20 10:12 Hypersegmented Neuts Not Reportable 10/06/20 10:12 Hyposegmented Neuts Not Reportable 10/06/20 10:12 Hypogranular Neuts Not Reportable 10/06/20 10:12 Smudge Cells Not Reportable 10/06/20 10:12 Toxic Granulation Not Reportable 10/06/20 10:12 Toxic Vacuolation Not Reportable 10/06/20 10:12 Dohle Bodies Not Reportable 10/06/20 10:12 Pelger-Huet Anomaly Not Reportable 10/06/20 10:12 Justus Rods Not Reportable 10/06/20 10:12 Platelet Estimate Consistent w auto 10/06/20 10:12 Clumped Platelets Not Reportable 10/06/20 10:12 Plt Clumps, EDTA Not Reportable 10/06/20 10:12 Large Platelets Not Reportable 10/06/20 10:12 Giant Platelets Not Reportable 10/06/20 10:12 Platelet Satelliting Not Reportable 10/06/20 10:12 Plt Morphology Comment Not Reportable 10/06/20 10:12 RBC Morphology Not Reportable 10/06/20 10:12 Dimorphic RBCs Not Reportable 10/06/20 10:12 Polychromasia Not Reportable 10/06/20 10:12 Hypochromasia Not Reportable 10/06/20 10:12 Poikilocytosis Not Reportable 10/06/20 10:12 Anisocytosis 1+ 10/06/20 10:12 Microcytosis Not Reportable 10/06/20 10:12 Macrocytosis Not Reportable 10/06/20 10:12 Spherocytes Not Reportable 10/06/20 10:12 Pappenheimer Bodies Not Reportable 10/06/20 10:12 Sickle Cells Not Reportable 10/06/20 10:12 Target Cells Not Reportable 10/06/20 10:12 Tear Drop Cells Not Reportable 10/06/20 10:12 Ovalocytes Not Reportable 10/06/20 10:12 Helmet Cells Not Reportable 10/06/20 10:12 [place] Bodies Not Reportable 10/06/20 10:12 [place] Rings Not Reportable 10/06/20 10:12 [place] Cells Not Reportable 10/06/20 10:12 Bite Cells Not Reportable 10/06/20 10:12 Crenated Cell Not Reportable 10/06/20 10:12 Elliptocytes Not Reportable 10/06/20 10:12 Acanthocytes (Spur) Not Reportable 10/06/20 10:12 Rouleaux Not Reportable 10/06/20 10:12 Hemoglobin C Crystals Not Reportable 10/06/20 10:12 Schistocytes Not Reportable 10/06/20 10:12 Malaria parasites Not Reportable 10/06/20 10:12 [place] Bodies Not Reportable 10/06/20 10:12 Hem Pathologist Commnt No 10/06/20 10:12 PT 16.1 Sec. (12.2-14.9) H 09/12/20 04:00 INR 1.31 (0.87-1.13) H 09/12/20 04:00 APTT 32.4 Sec. (24.2-36.6) 09/09/20 10:00 D-Dimer 8315.85 ng/mlDDU (0-234) H 09/07/20 14:00 ABG pH 7.468 (7.320-7.450) H 10/02/20 10:16 POC ABG pCO2 37.1 mmHg (32.0-48.0) 10/02/20 10:16 ABG pCO2 33.4 mm Hg 09/11/20 05:40 POC ABG pO2 72.9 mmHg (83-108) L 10/02/20 10:16 ABG pO2 112.1 mm Hg (80.0-90.0) H 09/11/20 05:40 POC ABG HCO3 26.3 10/02/20 10:16 ABG HCO3 28.1 mmol/L (20.0-26.0) H 09/11/20 05:40 ABG O2 Saturation 98.4 % (95.0-99.0) 09/11/20 05:40 ABG O2 Content 11.6 (0.0-44) 09/11/20 05:40 POC ABG Base Excess 2.6 10/02/20 10:16 ABG Base Excess 5.4 mmol/L (-2.0-3.0) H 09/11/20 05:40 ABG Hemoglobin 10.1 (12.0-17.5) L 10/02/20 10:16 ABG Oxyhemoglobin 93.1 (94-98) L 10/02/20 10:16 ABG Carboxyhemoglobin 1.2 % (0.0-5.0) 09/11/20 05:40 ABG Methemoglobin 0.3 (0.0-1.5) 10/02/20 10:16 ABG Sodium 138.5 mmol/L (136.0-145.0) 10/02/20 10:16 ABG Potassium 3.9 mmol/L (3.40-4.50) 10/02/20 10:16 ABG Chloride 108.0 mmol/L (98-107) H 10/02/20 10:16 ABG Glucose 289 mg/dL (65-95) H 10/02/20 10:16 Oxyhemoglobin 96.8 % (95.0-99.0) 09/11/20 05:40 Carboxyhemoglobin 0.8 (0.5-1.5) 10/02/20 10:16 FiO2 35 10/02/20 10:16 Sodium 131 mmol/L (137-145) L 10/12/20 04:38 Potassium 4.0 mmol/L (3.6-5.0) 10/12/20 04:38 Chloride 94.9 mmol/L (98-107) L 10/12/20 04:38 Carbon Dioxide 25 mmol/L (22-30) 10/12/20 04:38 Anion Gap 15 mmol/L 10/12/20 04:38 BUN 98 mg/dL (9-20) H 10/12/20 04:38 Creatinine 5.2 mg/dL (0.8-1.3) H 10/12/20 04:38 Estimated GFR 14 ml/min 10/12/20 04:38 BUN/Creatinine Ratio 19 % 10/12/20 04:38 Glucose 245 mg/dL (75-100) H 10/12/20 04:38 POC Glucose 175 mg/dL (70-105) H 10/12/20 00:33 Lactic Acid 2.90 mmol/L (0.7-2.0) H* 09/17/20 13:52 Calcium 9.0 mg/dL (8.4-10.2) 10/12/20 04:38 Phosphorus 8.00 mg/dL (2.5-4.5) H 09/08/20 12:02 Magnesium 1.80 mg/dL (1.7-2.3) 09/08/20 12:02 Ferritin > 2000.0 ng/mL (30.0-300.0) H 09/07/20 14:00 Total Bilirubin 0.30 mg/dL (0.1-1.2) 10/06/20 10:12 Direct Bilirubin 0.5 mg/dL (0-0.2) H 09/08/20 05:00 Indirect Bilirubin 0.5 mg/dL 09/08/20 05:00 AST 52 units/L (5-40) H 10/06/20 10:12 ALT 28 units/L (7-56) 10/06/20 10:12 Alkaline Phosphatase 94 units/L (35-129) 10/06/20 10:12 Ammonia 50.0 umol/L (25-60) 09/07/20 14:00 Lactate Dehydrogenase 882 units/L (91-180) H 09/07/20 14:00 Total Creatine Kinase 477 units/L (55-170) H 09/07/20 14:00 Troponin T 0.076 ng/mL (0.00-0.029) H 09/07/20 14:00 C-Reactive Protein 1.10 mg/dL (0.00-1.30) 09/07/20 14:00 Total Protein 8.4 g/dL (6.3-8.2) H 10/06/20 10:12 Albumin 2.3 g/dL (3.9-5) L 10/06/20 10:12 Albumin/Globulin Ratio 0.4 % 10/06/20 10:12 Triglycerides 220 mg/dL (2-149) H 09/12/20 Unknown Procalcitonin 1.16 ng/mL (<0.15) 10/04/20 10:32 TSH 2.290 mlU/mL (0.270-4.200) 09/07/20 14:00 Arterial Blood Glucose 289 mg/dL (65-95) H 10/02/20 10:16 Arterial Blood Ionized Calcium 5.2 mg/dL (4.6-5.3) 10/02/20 10:16 Urine Color Yellow (Yellow) 10/05/20 09:15 Urine Turbidity Slightly-cloudy (Clear) 10/05/20 09:15 Urine pH 5.0 (5.0-7.0) 10/05/20 09:15 Ur Specific [place] 1.015 (1.003-1.030) 10/05/20 09:15 Urine Protein 30 mg/dl mg/dL (Negative) 10/05/20 09:15 Urine Glucose (UA) Neg mg/dL (Negative) 10/05/20 09:15 Urine Ketones Neg mg/dL (Negative) 10/05/20 09:15 Urine Blood Sm (Negative) 10/05/20 09:15 Urine Nitrite Neg (Negative) 10/05/20 09:15 Urine Bilirubin Neg (Negative) 10/05/20 09:15 Urine Urobilinogen < 2.0 mg/dL (<2.0) 10/05/20 09:15 Ur Leukocyte Esterase Neg (Negative) 10/05/20 09:15 Urine WBC (Auto) 13.0 /HPF (0.0-6.0) H 10/05/20 09:15 Urine RBC (Auto) 19.0 /HPF (0.0-6.0) 10/05/20 09:15 U Epithel Cells (Auto) 6.0 /HPF (0-13.0) 10/05/20 09:15 Urine Bacteria (Auto) 2+ /HPF (Negative) 10/05/20 09:15 Hyaline Casts 1 /LPF 10/05/20 09:15 Urine Mucus Few /HPF 10/05/20 09:15 Urine Yeast (Budding) 3+ /HPF 10/05/20 09:15 Urine Sperm 3+ /HPF (FIXED INCOME TRADING VICE PRESIDENT) 09/07/20 13:08 Urine Creatinine 182.4 mg/dL (0.1-20.0) H 09/08/20 Unknown Urine Sodium 40 mmol/L 09/08/20 Unknown Salicylates < 0.3 mg/dL (2.8-20.0) L 09/07/20 14:00 Acetaminophen 5.0 ug/mL (10.0-30.0) L 09/07/20 14:00 Valproic Acid 58.9 ug/mL (50-100) 10/04/20 04:55 Plasma/Serum Alcohol < 0.01 % (0-0.07) 09/07/20 14:00 Coronavirus (PCR) Negative (Negative) 10/03/20 10:01 Hepatitis A IgM Ab Non-reactive (NonReactive) 09/07/20 14:00 Hep Bs Antigen Non-reactive (Negative) 09/07/20 14:00 Hep B Core IgM Ab Non-reactive (NonReactive) 09/07/20 14:00 Hepatitis C Antibody Non-reactive (NonReactive) 09/07/20 14:00 HIV 1&2 Antibody Rapid Non react (Non React) 09/07/20 14:34 HIV P24 Antigen Non react (Non React) 09/07/20 14:34 Blood Type O POSITIVE 09/09/20 10:00 Antibody Screen Negative 09/07/20 14:00 Mae/IV: Voiding Method Condom Catheter IV Catheter Type [Right Triple Lumen Cath Femoral] IV Catheter Type [Left Peripheral IV Antecubital] IV Catheter Type [Left Hand] Peripheral IV IV Catheter Type [Right Peripheral IV Antecubital] Active Medications - Current Medications Current Medications: Generic Name Dose Route Start Last Admin Trade Name Freq PRN Reason Stop Dose Admin Acetaminophen 650 mg 10/02/20 09:00 10/12/20 09:31 Acetaminophen 325 Mg/10.15 Ml Oral Liqd Unit Dose PO 650 mg Q4HR PRN Administration Non Cardiac Pain or Temp>100.5 Amiodarone HCl 200 mg 10/05/20 11:00 10/12/20 09:31 Amiodarone 200 Mg Tab PO 200 mg BID TAYLOR Administration Lipase/Protease/Amylase 1 each 09/09/20 09:40 Lipase 10,500/Protease 25,000/Amylase 43,750 (Units) Dr Armenta FEEDTLAURA PRN PRN For Clogged Feeding Tube Hydralazine HCl 50 mg 09/23/20 14:00 10/12/20 06:42 Hydralazine 25 Mg Tab PO Not Given Q8HR TAYLOR Sodium Chloride 100 mls @ 999 mls/hr 09/09/20 13:36 Nacl 0.9% IV JAYJAY PRN Hypotension Sodium Chloride 500 mls @ 0 mls/hr 10/12/20 10:20 Nacl 0.9% 500 Ml IV 10/12/20 23:21 ONCE TAYLOR As Directed Cefepime HCl 2 gm in 100 mls @ 200 mls/hr 10/12/20 11:00 Cefepime/Ns 2 Gm/100 Ml IV Q24H [facility] Protocol Insulin Glargine 36 units 10/11/20 12:00 10/12/20 09:30 Insulin Glargine 100 Units/Ml SUB-Q 36 units DAILY TAYLOR Administration Insulin Human Lispro 0 unit 09/12/20 12:00 10/12/20 08:07 Insulin Lispro 100 Unit/Ml SUB-Q Not Given Q6HR [facility] Protocol Lansoprazole 30 mg 09/11/20 11:00 10/12/20 09:31 Lansoprazole 30 Mg Solutab FEEDTUBE 30 mg BID TAYLOR Administration Levetiracetam 1,500 mg 09/28/20 10:00 10/12/20 09:31 Levetiracetam 500 Mg/5 Ml Oral Liqd PO 1,500 mg BID TAYLOR Administration Multivitamins 5 ml 09/09/20 12:00 10/12/20 09:33 Multivitamins 5 Ml Oral Liquid PO Not Given QDAY TAYLOR Ondansetron HCl 4 mg 09/07/20 17:55 09/19/20 04:00 Ondansetron 4 Mg/2 Ml Inj IV 4 mg Q8H PRN Administration Nausea And Vomiting Senna/Docusate Sodium 2 tab 09/20/20 11:00 Sennosides/Docusate Sodium 8.6/50 Mg Tab PO BID PRN Laxative Effect Simple Syrup 15 ml 09/09/20 09:40 09/17/20 17:43 Simple Syrup 15 Ml FEEDTUBE 15 ml PRN PRN Administration Hypoglycemia Simple Syrup 30 ml 09/09/20 09:40 Simple Syrup 15 Ml FEEDTUBE PRN PRN Hypoglycemia Sodium Bicarbonate 325 mg 09/09/20 09:40 Sodium Bicarbonate 325 Mg Tab FEEDTUBE PRN PRN For Clogged Feeding Tube Sodium Chloride 10 ml 09/07/20 22:00 10/12/20 09:32 Sodium Chloride 0.9% 10 Ml Flush Syringe IV 10 ml BID TAYLOR Administration Sodium Chloride 10 ml 09/07/20 17:55 Sodium Chloride 0.9% 10 Ml Flush Syringe IV PRN PRN LINE FLUSH Valproic Acid 1,000 mg 09/28/20 10:00 10/12/20 09:31 Valproic Acid 250 Mg/5 Ml Oral Liqd FEEDTUBE 1,000 mg BID TAYLOR Administration Nutrition/Malnutrition Assess - Dietary Evaluation Nutrition/Malnutrition Findings: Nutrition Notes Start: 09/08/20 12:01 Freq: Status: Active Protocol: Document 10/10/20 12:17 AT (Rec: 10/10/20 12:26 AT [id number]) Co-Sign 10/10/20 12:17 Nutrition Notes Initial or Follow up Reassessment Current Diagnosis Acute Kidney Injury, Respiratory Failure Other Pertinent Diagnosis cardiac arrest, COVID (+), metabolic encephalopathy, pneu Current Diet Nepro 1.8 at 45 mL/hr (goal rate) Labs/Tests Na 133 BUN 84 Cr 4.6 BG 208 Pertinent Medications Lantus Humalog Height 6 ft Weight 156 kg [place] Body Weight (kg) 80.90 BMI 46.6 Weight change and time frame Weight change noted, pt no longer on HD Weight Status Morbidly Obese Subjective/Other Information Follow up for stable TF. Spoke with RN, pt remains tolerating TF and running at goal. Per RN, team is flushing with 200 mL q4h as ordered by MD to compensate for HD cessation. Percent of energy/protein needs met: 100%/64% Burn Absent Trauma Absent GI Symptoms None Difficulty In Swallowing Food Allergy No Skin Integrity/Comment pressure ulcer to lips Current % PO Negligible Minimum of two criteria No Fluid Accumulation Mild (non-severe) #3 Nutrition Diagnosis Increased nutrient needs ( specify in comment below) Diagnosis Progress(for reassessment Continues documentation) #2 Nutrition Diagnosis Increased nutrient needs ( specify in comment below) As Evidenced by Signs and Symptoms pt no longer on HD Diagnosis Progress(for reassessment Resolved documentation) #1 Nutrition Diagnosis Inadequate oral intake Diagnosis Progress(for reassessment Continues documentation) Is patient on ventilator? No Is Patient Ambulatory and/or Out of Bed No REE-([place] [facility]-confined to bed) 2869.872 Kcal/Kg value to use for calculation 12 Approximate Energy Requirements Using 1872 kcal/Kg Calculation Used for Recommendations Kcal/kg Additional Notes PRO needs: 147 -177g (1.25-1.5 g/kg AdBW 118kg) Fluid needs: 1183-1689 mL or per MD Nutrition Intervention Change Diet Order: TF Nutrition Support: Nepro at 45ml/hr Flush with 200mL q4h per MD Kcal 1,944 Protein (gm) 87 Fluid (mL) 785 Goal #1 Meet kcal and protein needs as best as possible via TF Goal #2 Wound healing Anticipated Discharge Needs: TF Follow-Up By: 10/13/20 Additional Comments F/U for stable TF, POC
[2020-10-12] MEDS ORDERED: SODIUM CHLORIDE 0.9% 500 ML 500 ML IV SCH (10:20)
[2020-10-12 10:36] LABS: Bacteria,Urine 4+ /HPF (Negative); Bilirubin,Urine NEG (Negative); Blood,Urine MOD (Negative); Color,Urine Yellow (Yellow); Urobilinogen,Urine < 2.0 mg/dL (<2.0)
[2020-10-12 11:35] LABS: Hemoglobin 6.9 gm/dl (11.8-15.2)
[2020-10-12 12:09] LABS: Hematocrit 19.9 % (35.5-45.6)
[2020-10-12] MEDS: CEFEPIME/NS 2 GM/100 ML 2 GM/100 ML BAG IV SCH (12:46)
[2020-10-12 14:45] LABS: Total Cells Counted 100
[2020-10-12 14:46] LABS: Hypochromasia 1+; Platelet Estimate Consistent w Auto
[2020-10-12] MEDS ORDERED: VANCOMYCIN 2,000 MG in SODIUM CHLORIDE 0.9% 500 ML 500 ML IV ONE (14:46)
--- NOTE | 2020-10-12 14:51 | Progress Note ---
Assessment and Plan Cultures: Blood culture 09/07/2020 no growth SARS CoV2 PCR positive 09/07/2020 urine culture: No growth HIV, hepatitis panel: Negative 10/04/2020 blood culture: No growth 10/05/2020 urine culture: Mixed cailin 10/12/2020 blood culture: In process Assessment: 65 years old male with unknown medical history, morbidly obese, brought to the ED by EMS on 09/07/2020 secondary to passing out, found in out of hospital ca rdiac arrest status post resuscitation, intubated in the field: #New sepsis: UA with pyuria, chest x-ray appears unchanged but thickened upper respiratory secretions. Rule out bacteremia. Prolonged and complicated hospital stay. #[id number] cardiac arrest/shock #Bilateral pneumonia secondary to COVID-19 infection. Inflammatory markers elevated. D-dimer was 8315. apparently, patient was recently hospitalized [facility] the [facility] for COVID-19 prior to admission here. Was not a candidate for remdesivir due to hepatic and renal failure. #Acute hypoxic respiratory failure: now s/p trach, PEG. #Acute renal failure: requiring HD. #Acute anoxic encephalopathy. Recs: -f/u blood cultures, urine culture, sputum culture -empiric renally adjusted Cefepime, Vancomycin Marisol Stock MD, FACP [facility] ([facility] O: [phone] F: [phone] Subjective Date of service: 10/12/20 Principal diagnosis: Abnormal LFTs, s/p cardiac arrest, acute kidney injury with ATN Interval history: ID reconsulted due to fevers. Patient unresponsive at baseline, noted to have thick secretions. Had cultures drawn and was started on empiric antibiotics. T-max 102.7 F. Objective - Exam Narrative Exam: Physical Exam: Constitutional: Unresponsive Head, Ears, Nose: Normocephalic, atraumatic. External ears, nose normal Eyes: Conjunctivae/corneas clear. No icterus. No ptosis. Neck: Trach present Cardiovascular: S1, S2 + Respiratory: AE fair bilaterally and equal GI: Soft, bowel sounds +, G-tube + Musculoskeletal: No pedal edema, no cyanosis. Skin: No rash or abscess Hem/Lymphatic: No palpable cervical or supraclavicular nodes. No lymphangitis Psych: no agitation Neurological: Unresponsive - Constitutional Vitals: Vital Signs Temp Pulse Resp BP Pulse Ox 101.5 F H 86 20 122/56 94 10/12/20 07:52 10/12/20 10:00 10/12/20 07:52 10/12/20 07:52 10/12/20 07:52 Temperature -Last 24 Hours Temperature 101.5 F Temperature 102.4 F Temperature 102.7 F Temperature 102.2 F Temperature 101.2 F - Labs CBC & Chem 7: 10/12/20 10:52 10/12/20 04:38 Labs: Abnormal lab results 10/11/20 10/11/20 10/12/20 Range/Units 13:50 16:06 00:33 WBC (4.5-11.0) K/mm3 RBC (3.65-5.03) M/mm3 Hgb (11.8-15.2) gm/dl Hct (35.5-45.6) % RDW (13.2-15.2) % Seg Neuts % (Manual) (40.0-70.0) % Seg Neutrophils # Man (1.8-7.7) K/mm3 Sodium (137-145) mmol/L Chloride (98-107) mmol/L BUN (9-20) mg/dL Creatinine (0.8-1.3) mg/dL Glucose (75-100) mg/dL POC Glucose 228 H 192 H 175 H (70-105) mg/dL Urine WBC (Auto) (0.0-6.0) /HPF Crossmatch 10/12/20 10/12/20 10/12/20 Range/Units 04:38 08:36 10:25 WBC 14.1 H (4.5-11.0) K/mm3 RBC 1.58 L (3.65-5.03) M/mm3 Hgb 4.6 L* (11.8-15.2) gm/dl Hct 13.4 L* (35.5-45.6) % RDW 18.5 H (13.2-15.2) % Seg Neuts % (Manual) 75.0 H (40.0-70.0) % Seg Neutrophils # Man 10.6 H (1.8-7.7) K/mm3 Sodium 131 L (137-145) mmol/L Chloride 94.9 L (98-107) mmol/L BUN 98 H (9-20) mg/dL Creatinine 5.2 H (0.8-1.3) mg/dL Glucose 245 H (75-100) mg/dL POC Glucose (70-105) mg/dL Urine WBC (Auto) 171.0 H (0.0-6.0) /HPF Crossmatch 10/12/20 10/12/20 10/12/20 Range/Units 10:52 11:04 11:23 WBC (4.5-11.0) K/mm3 RBC (3.65-5.03) M/mm3 Hgb 6.9 L (11.8-15.2) gm/dl Hct 19.9 L* D (35.5-45.6) % RDW (13.2-15.2) % Seg Neuts % (Manual) (40.0-70.0) % Seg Neutrophils # Man (1.8-7.7) K/mm3 Sodium (137-145) mmol/L Chloride (98-107) mmol/L BUN (9-20) mg/dL Creatinine (0.8-1.3) mg/dL Glucose (75-100) mg/dL POC Glucose 223 H (70-105) mg/dL Urine WBC (Auto) (0.0-6.0) /HPF Crossmatch See Detail - Imaging and cardiology Chest x-ray: report reviewed, image reviewed (no new infiltrate)
[2020-10-12] MEDS ORDERED: VANCOMYCIN PHARMACY TO DOSE IV SCH ×2 (15:00)
[2020-10-13] MEDS: INSULIN LISPRO 100 UNIT/ML SUB-Q SCH ×3 (00:15→12:57)
[2020-10-13 05:16] LABS: Basophils % (Auto) 0.3 % (0.0-1.8); Eosinophils # (Auto) 0.1 K/mm3 (0.0-0.4); Eosinophils % (Auto) 0.5 % (0.0-4.3); Hematocrit 24.7 % (35.5-45.6); Hemoglobin 8.1 gm/dl (11.8-15.2); Lymphocytes # (Auto) 1.8 K/mm3 (1.2-5.4); Lymphocytes % (Auto) 14.2 % (13.4-35.0); Mean Corpuscular HGB Conc 33 % (32-34); Mean Corpuscular Volume 87 fl (84-94); Monocytes # (Auto) 1.6 K/mm3 (0.0-0.8); Monocytes % (Auto) 12.7 % (0.0-7.3); Platelet Count 235 K/mm3 (140-440); Red Blood Count 2.84 M/mm3 (3.65-5.03); Red Cell Distribution Width 18.4 % (13.2-15.2)
[2020-10-13 05:31] LABS: Calcium 9.6 mg/dL (8.4-10.2)
[2020-10-13] MEDS: hydrALAZINE 25 MG TAB PO SCH ×3 (06:16→22:43)
--- NOTE | 2020-10-13 08:47 | Progress Note ---
Subjective Principal diagnosis: Abnormal LFTs, s/p cardiac arrest, acute kidney injury with ATN Interval history: Patient was seen today for follow-up of multiple renal related issues, patient appears to be resting comfortably in bed in no acute distress he does have a Mae catheter which is draining florentino colored urine Patient remains encephalopathic, unresponsive, nonoliguric Interdisciplinary notes that also reviewed Events of 24 hours vitals labs intake output medications were reviewed Past medical history: Reviewed Family history: Reviewed Social history: Reviewed Allergies: Reviewed Physical examination: Vitals: Reviewed HEENT: No pallor or icterus oral mucosa moist Neck: Supple no JVD no thyromegaly Chest: Bilateralfew crackles posteriorly Heart: Regular rate and rhythm S1-S2 heard no S3-S4 Abdomen: Soft nontender no voluntary guarding rigidity rebound Extremity: Dry skin less than 1+ peripheral edema Psychiatric: No evidence of agitation and aggression noted Dermatology: No petechial rashes Labs and x-rays: Reviewed from today Assessment and plan Acute kidney injury currently nonoliguric likely felt to be due to acute tubular necrosis which has been felt to be multifactorial, renal function remained stable at this time no acute emergent indication for renal replacement therapy his BMI is 46.6 current creatinine is in the 5 range GFR in the range of 13 cc,, patient is not a very good candidate renal replacement therapy, will reach out to the family Yoko, If family chooses to proceed with dialysis it will not be without risk in terms of any cardiac arrest as patient is noncommunicative. Monitor daily labs for now, last dialysis was on October 05 Does have underlying chronic kidney disease baseline creatinine around 1.8, upon admission the creatinine was around 5.6 on September 25, 2020 patient does have multiple risk factors for underlying chronic kidney disease overall prognosis appears to be very poor, mortality risk will be high, Status post out of hospital cardiac arrest, respiratory failure, encephalopathy, seizure disorder, Covid19 pneumonia His overall prognosis is very poor, mortality risk is very high, dialysis alone is not going to change his overall outcome I did called Yoko at [phone] and had to leave a message for her to call me back Will wait for 's call to discuss We'll continue to follow and make recommendation for renal standpoint Objective - Vital Signs Vital signs: Vital Signs - 12hr 10/12/20 10/12/20 10/12/20 21:27 22:00 22:53 Temperature 99.0 F Pulse Rate 89 76 Respiratory 21 Rate Blood Pressure 135/54 Blood Pressure [Right] O2 Sat by Pulse 97 97 Oximetry 10/13/20 10/13/20 10/13/20 00:09 05:00 06:16 Temperature 98.2 F 98.2 F Pulse Rate 76 72 72 Respiratory 20 20 Rate Blood Pressure 112/53 131/63 Blood Pressure 131/63 [Right] O2 Sat by Pulse 96 95 Oximetry 10/13/20 10/13/20 10/13/20 07:36 08:00 08:35 Temperature 98.3 F 98.3 F Pulse Rate 72 Respiratory 18 18 Rate Blood Pressure 141/70 Blood Pressure 141/70 [Right] O2 Sat by Pulse 96 95 Oximetry - Lab 10/13/20 04:38 10/13/20 04:38 Most recent lab results ABG pH 7.468 (7.320-7.450) H 10/02/20 10:16 ABG pCO2 33.4 mm Hg 09/11/20 05:40 ABG pO2 112.1 mm Hg (80.0-90.0) H 09/11/20 05:40 ABG HCO3 28.1 mmol/L (20.0-26.0) H 09/11/20 05:40 ABG O2 Saturation 98.4 % (95.0-99.0) 09/11/20 05:40 Calcium 9.6 mg/dL (8.4-10.2) 10/13/20 04:38 Phosphorus 8.00 mg/dL (2.5-4.5) H 09/08/20 12:02 Magnesium 1.80 mg/dL (1.7-2.3) 09/08/20 12:02 Urine Creatinine 182.4 mg/dL (0.1-20.0) H 09/08/20 Unknown Urine Sodium 40 mmol/L 09/08/20 Unknown Medications & Allergies - Medications Allergies/Adverse Reactions: Allergies No Known Allergies Allergy (Verified 09/21/20 21:00) Verified with , no known drug allergies. Home Medications: Home Medications Medication Instructions Recorded Confirmed Last Taken Type Albuterol Sulfate 60 mcg IH PRN 09/11/20 09/11/20 Unknown History Cholecalciferol (Vitamin D3) 25 tab PO DAILY 09/11/20 09/11/20 Unknown History Cozaar 25 tab PO DAILY 09/11/20 09/11/20 Unknown History HumaLOG 14 unit SQ AC 09/11/20 09/11/20 Unknown History Hydralazine HCl 50 tab PO TID 09/11/20 09/11/20 Unknown History Isosorbide Dinitrate 30 mg PO DAILY 09/11/20 09/11/20 Unknown History Lantus VIAL 54 units SQ HS 09/11/20 09/11/20 Unknown History Lasix 20 tab PO DAILY 09/11/20 09/11/20 Unknown History Nifedipine 30 tab PO DAILY 09/11/20 09/11/20 Unknown History Active Medications: Generic Name Dose Route Start Last Admin Trade Name Freq PRN Reason Stop Dose Admin Acetaminophen 650 mg 10/02/20 09:00 10/12/20 09:31 Acetaminophen 325 Mg/10.15 Ml Oral Liqd Unit Dose PO 650 mg Q4HR PRN Administration Non Cardiac Pain or Temp>100.5 Amiodarone HCl 200 mg 10/05/20 11:00 10/12/20 23:03 Amiodarone 200 Mg Tab PO 200 mg BID TAYLOR Administration Lipase/Protease/Amylase 1 each 09/09/20 09:40 Lipase 10,500/Protease 25,000/Amylase 43,750 (Units) Dr Geovany AVALOS PRN PRN For Clogged Feeding Tube Hydralazine HCl 50 mg 09/23/20 14:00 10/13/20 06:16 Hydralazine 25 Mg Tab PO 50 mg Q8HR TAYLOR Administration Sodium Chloride 100 mls @ 999 mls/hr 09/09/20 13:36 Nacl 0.9% IV JAYJAY PRN Hypotension Cefepime HCl 2 gm in 100 mls @ 200 mls/hr 10/12/20 12:00 10/12/20 12:46 Cefepime/Ns 2 Gm/100 Ml IV 200 mls/hr Q24H TAYLOR Administration Protocol Insulin Glargine 36 units 10/11/20 12:00 10/12/20 09:30 Insulin Glargine 100 Units/Ml SUB-Q 36 units DAILY TAYLOR Administration Insulin Human Lispro 0 unit 09/12/20 12:00 10/13/20 06:17 Insulin Lispro 100 Unit/Ml SUB-Q 4 unit Q6HR TAYLOR Administration Protocol Lansoprazole 30 mg 09/11/20 11:00 10/12/20 23:02 Lansoprazole 30 Mg Solutab FEEDTUBE 30 mg BID TAYLOR Administration Levetiracetam 1,500 mg 09/28/20 10:00 10/12/20 23:02 Levetiracetam 500 Mg/5 Ml Oral Liqd PO 1,500 mg BID TAYLOR Administration Multivitamins 5 ml 09/09/20 12:00 10/12/20 09:33 Multivitamins 5 Ml Oral Liquid PO Not Given QDAY TAYLOR Ondansetron HCl 4 mg 09/07/20 17:55 09/19/20 04:00 Ondansetron 4 Mg/2 Ml Inj IV 4 mg Q8H PRN Administration Nausea And Vomiting Senna/Docusate Sodium 2 tab 09/20/20 11:00 Sennosides/Docusate Sodium 8.6/50 Mg Tab PO BID PRN Laxative Effect Simple Syrup 15 ml 09/09/20 09:40 09/17/20 17:43 Simple Syrup 15 Ml FEEDTUBE 15 ml PRN PRN Administration Hypoglycemia Simple Syrup 30 ml 09/09/20 09:40 Simple Syrup 15 Ml FEEDTUBE PRN PRN Hypoglycemia Sodium Bicarbonate 325 mg 09/09/20 09:40 Sodium Bicarbonate 325 Mg Tab FEEDTUBE PRN PRN For Clogged Feeding Tube Sodium Chloride 10 ml 09/07/20 22:00 10/12/20 23:03 Sodium Chloride 0.9% 10 Ml Flush Syringe IV 10 ml BID TAYLOR Administration Sodium Chloride 10 ml 09/07/20 17:55 Sodium Chloride 0.9% 10 Ml Flush Syringe IV PRN PRN LINE FLUSH Valproic Acid 1,000 mg 09/28/20 10:00 10/12/20 23:02 Valproic Acid 250 Mg/5 Ml Oral Liqd FEEDTUBE 1,000 mg BID TAYLOR Administration
[2020-10-13] MEDS: INSULIN GLARGINE 100 UNITS/ML SUB-Q SCH (09:58)
[2020-10-13] MEDS: levETIRAcetam 500 MG/5 ML ORAL LIQD PO SCH ×2 (09:58→22:44)
[2020-10-13] MEDS: VALPROIC ACID 250 MG/5 ML ORAL LIQD FEEDTUBE SCH ×2 (09:58→22:44)
[2020-10-13] MEDS: LANSOPRAZOLE 30 MG SOLUTAB FEEDTUBE SCH (09:59)
[2020-10-13] MEDS: AMIODARONE 200 MG TAB PO SCH ×2 (09:59→22:44)
--- NOTE | 2020-10-13 10:42 | Progress Note ---
Assessment and Plan Assessment and plan: S/p cardiopulmonary arrest (out of hospital) Toxic metabolic encephalopathy +/-anoxic injury Acute hypoxic respiratory failure Nonoliguric acute kidney injury secondary to ATN. Patient status post emergent hemodialysis 09/08. Seizure disorder Hyperkalemia Hypernatremia COVID-19 pneumonia Sepsis Transaminitis Morbid obesity. 09/15/2020. MRI brain for further evaluation. Continue AEDs of valproic acid and Keppra. Continue hemodialysis per nephrology recommendations. Overall prognosis remains guarded and poor. 09/16/2020. ID recommends continue to monitor patient off of antibiotics. Fever most likely of central etiology. Patient with questionable seizures versus myoclonus from anoxic brain injury. Patient unable to undergo MRI due to body habitus. Continue AEDs per neurology recommendations. Inflammatory markers elevated. Patient was recently hospitalized for COVID-19 pneumonia [place] the [place] to being hospitalized [place]. Patient not a candidate for remdesivir due to hepatic and renal failure. Viral hepatitis panel negative. Overall prognosis extremely poor. 09/17/2020. Fevers have resolved over the past 48 hours. Continue to monitor off antibiotics per ID recommendations. Patient with questionable seizures versus myoclonus from anoxic brain injury. Patient unable to undergo MRI due to body habitus. EEG is nonspecific but given CT of head findings consistent with anoxic encephalopathy, brain injury. Continue AEDs per neurology recommendations. Inflammatory markers elevated. Patient was recently hospitalized for COVID-19 pneumonia at the [place] to being hospitalized [place]. Patient not a candidate for remdesivir due to hepatic and renal failure. Viral hepatitis panel negative. Patient is s/p emergent HD on Friday (hyperK) and Friday - 09/08. Patient also S/p HD 09/15. Continue hemodialysis per nephrology recommendations. Patient currently on AC/PRVC mode ventilation with rate of 30, tidal volume 475, FiO2 30% and PEEP of 6. As stated in neuro note, overall prognosis is very poor. 09/18/2020. Fevers have resolved over the past 72 hours. Continue to monitor off antibiotics per ID recommendations. Leukocytosis persistent for the past 4 days. Patient with questionable seizures/myoclonus from anoxic brain injury. Patient unable to undergo MRI due to body habitus. EEG is nonspecific but given CT of head findings consistent with anoxic encephalopathy, brain injury. Continue AEDs per neurology recommendations. Inflammatory markers elevated. Patient was recently hospitalized for COVID-19 pneumonia [place] the [place]. Patient not a candidate for remdesivir due to hepatic and renal failure. Viral hepatitis panel negative. Patient currently on AC/PRVC mode ventilation with rate of 30, tidal volume 475, FiO2 30% and PEEP of 6. Overall prognosis remains guarded/poor. 09/19/2020 Fevers have resolved over the past 4 days. Continue to monitor off antibiotics per ID recommendations. Leukocytosis persistent for the past 4 days. Patient with questionable seizures/myoclonus from anoxic brain injury. Patient unable to undergo MRI due to body habitus. EEG is nonspecific but given CT of head findings consistent with anoxic encephalopathy, brain injury. Continue AEDs per neurology recommendations. Inflammatory markers elevated. Patient was recently hospitalized for COVID-19 pneumonia [place] the [place]. Patient not a candidate for remdesivir due to hepatic and renal failure. Viral hepatitis panel negative. Patient currently on AC/PRVC mode ventilation with rate of 30, tidal volume 475, FiO2 30% and PEEP of 6. Overall prognosis remains guarded/poor. 09/20/2020 -Surgery consulted for PEG and trach, will continue to follow. 09/21/2020; patient will have PEG and trach by Dr. hayes today. Prognosis is poor. Continue with current management. Administrative Services Coordinator is following for vent management. 09/22/2020; patient had PEG and trach yesterday. 09/23/2020; continue PEG Tube Feeding. 09/24/2020; continue PEG tube feeding, patient is on Keppra, lorazepam and phenyt oin per neurology recommendation. Patient is on hemodialysis and nephrology is following. Management of mechanical ventilation for CCM. 09/25/2020. Continue PEG tube feeding, patient is on Keppra, lorazepam and phenytoin per neurology recommendation. Patient is on hemodialysis and nephrology is following. Management of mechanical ventilation for CCM. Continue PSV/CPAP 07/16. Continue tracheostomy care, secretion control and airway management. 09/26/2020. Patient has tolerated PSV for approximately 48 hours. I discussed with pulmonary possibility of T-piece today. Continue tracheostomy care, secretion control and airway management. If patient tolerates T-piece trials, patient will be transferred to the floor. Continue AEDs of Keppra and phenytoin as well as Ativan as needed per neurology recommendations. Continue hemodialysis per nephrology. Continue TF with aspiration precautions. 09/27/2020. Patient continues to tolerate PSV 12/6 at 30% FiO2. T-piece trials per pulmonary. Continue tracheostomy care, secretion control and airway management. Continue AEDs of Keppra and phenytoin as well as Ativan as needed per neurology recommendations. Continue hemodialysis per nephrology. Continue TF with aspiration precautions. 09/28/2020. Patient for T-piece trials per pulmonary. Continue hemodialysis per nephrology. Continue tracheostomy care, secretion control and airway management. Continue AEDs of Keppra and phenytoin as well as Ativan as needed per neurology recommendations. Continue TF with aspiration precautions. 09/29/2020, continue T-piece trials per pulmonary. Continue hemodialysis per nephrology. Continue strict I/O's and labs daily. Monitor for renal recovery. 09/30/2020. Continue T-piece trials per pulmonary recommendations. Continue tracheostomy care, secretion control and airway management. Continue hemodialysis per nephrology. Tight glycemic control. Continue TF with aspiration precautions. 10/01/2020. Patient with T-piece trials and tolerating. Wean to trach collar per pulmonary. Continue tracheostomy care, secretion control and airway management. Continue hemodialysis per nephrology. Tight glycemic control. Continue TF with aspiration precautions. Case management consultation for placement 10/02/20. Continue T-piece trials per pulmonary recommendations. Continue tracheostomy care, secretion control and airway management. Continue hemodialysis per nephrology. Tight glycemic control. Continue TF with aspiration precautions. 10/03/2020. Continue T-piece trials per pulmonology. Continue tracheostomy care, secretion control and airway management. Continue modalities per nephrology. Discharge planning underway. Needs placement to SNF versus hospice. 10/04/2020. Patient remained febrile with temperature 101 F. Ordered blood culture, chest x-ray, urinalysis. Plan to start antibiotics after blood cultures been obtained. Patient remains hemodynamically stable. Plan to discharge to SNF versus inpatient hospice on the way. 10/05/2020. Started on antibiotics yesterday. Awaiting blood culture. He develo ped atrial fibrillation with RVR and was placed on amiodaron see awaiting placement. E drip with subsequent conversion to SR. Now on amiodarone PO. Discussed with patients - she would like him to go inpatient hospice or a deliver driver care facility. As per CM, [place] not approving LTC placement at this time. As is still undecided about hospice, inpatient hospice is not accepting h im at this time. has placed a referral to a SNF with inpatient dialysis. Awaiting response from the SNF. 10/06/2020. Hb drop noted. Not on therapeutic anticoagulation [atrial fibrillation] due to duration of atrial fibrillation [lasted less than 2 hours] and also drop in hemoglobin. Continue to monitor hemoglobin. Repeat labs ordered today. Vitals stable. Discussed with patient's yesterday 10/07. HR is controlled. Pending placement. As per CM notes, patient denied acceptance at a [facility] as he has [place]. Will discuss with CM to know other options are available. 10/08. Vitals stable. Will discuss discharge plan with spouse today as it looks like only option left is inpatient hospice. 10/09. Vitals stable. Will discuss discharge plan with spouse today as it looks like only option left is inpatient hospice 10/10. Discussed with patient spouse. Patient spouse asking to see patient in the hospital. airborne weapons technical manager on board. Patient has not had hemodialysis since 10/05. Creatinine stable at 4.6. Nephrology on board 10/11. DC planning underway. Patient spouse to see patient in hospital today. Vitals remained stable. Creatinine stable as well. Increase Lantus to 36 units daily. 10/12. Patient started having fever yesterday-temp 102 Fahrenheit. Stat blood cultures were drawn today, urinalysis, urine culture, chest x-ray, procalcitonin ordered. Start on empirical antibiotics for possible hospital acquired pneumonia. ID consulted. H&H shows hemoglobin 4.6 patient will receive 2 units PRBCs.. Check H&H after admission. Check stool guaiac. 10/13. Patient with new sepsis. Follow-up blood, sputum and urine cultures. Continue empiric antibiotics of cefepime and vancomycin. Chest x-ray appears to be unchanged. Urinalysis revealed pyuria. H&H is stabilized from PRBCs. Continue to follow H&H History Interval history: 65 y/o male with out of hospital cardiac arrest, acute hypoxic respiratory failu re and COVID-19 infection. Hospitalist Physical - Constitutional Vitals: Temp Pulse Resp BP Pulse Ox 98.3 F 72 18 141/70 95 10/13/20 08:00 10/13/20 08:00 10/13/20 08:00 10/13/20 08:00 10/13/20 08:35 General appearance: Present: other (On mechanical ventilation) - EENT Eyes: Present: PERRL, EOM intact ENT: hearing intact, clear oral mucosa, dentition normal - Neck Neck: Present: supple, normal ROM - Respiratory Respiratory effort: normal Respiratory: bilateral: CTA - Cardiovascular Rhythm: regular Heart Sounds: Present: S1 & S2. Absent: gallop, rub - Extremities Extremities: no ischemia, No edema, Full ROM - Abdominal General gastrointestinal: soft, non-tender, non-distended, normal bowel sounds - Integumentary Integumentary: Present: clear, warm, dry - Neurologic Neurologic: CNII-XII intact, moves all extremities HEART Score - HEART Score Troponin: Troponin T 0.076 ng/mL (0.00-0.029) H 09/07/20 14:00 Results - Labs CBC & Chem 7: 10/13/20 04:38 10/13/20 04:38 Labs: Laboratory Last Values WBC 13.0 K/mm3 (4.5-11.0) H 10/13/20 04:38 RBC 2.84 M/mm3 (3.65-5.03) L 10/13/20 04:38 Hgb 8.1 gm/dl (11.8-15.2) L 10/13/20 04:38 Hct 24.7 % (35.5-45.6) L 10/13/20 04:38 MCV 87 fl (84-94) 10/13/20 04:38 MCH 29 pg (28-32) 10/13/20 04:38 MCHC 33 % (32-34) 10/13/20 04:38 RDW 18.4 % (13.2-15.2) H 10/13/20 04:38 Plt Count 235 K/mm3 (140-440) 10/13/20 04:38 Lymph % (Auto) 14.2 % (13.4-35.0) 10/13/20 04:38 [place] % (Auto) 12.7 % (0.0-7.3) H 10/13/20 04:38 Eos % (Auto) 0.5 % (0.0-4.3) 10/13/20 04:38 Baso % (Auto) 0.3 % (0.0-1.8) 10/13/20 04:38 Lymph # (Auto) 1.8 K/mm3 (1.2-5.4) 10/13/20 04:38 [place] # (Auto) 1.6 K/mm3 (0.0-0.8) H 10/13/20 04:38 Eos # (Auto) 0.1 K/mm3 (0.0-0.4) 10/13/20 04:38 Baso # (Auto) 0.0 K/mm3 (0.0-0.1) 10/13/20 04:38 Add Manual Diff Complete 10/12/20 08:36 Total Counted 100 10/12/20 08:36 Seg Neutrophils % 72.3 % (40.0-70.0) H 10/13/20 04:38 Seg Neuts % (Manual) 75.0 % (40.0-70.0) H 10/12/20 08:36 Band Neutrophils % 8.0 % 09/30/20 06:57 Lymphocytes % (Manual) 17.0 % (13.4-35.0) 10/12/20 08:36 Monocytes % (Manual) 5.0 % (0.0-7.3) 10/12/20 08:36 Eosinophils % (Manual) 2.0 % (0.0-4.3) 10/12/20 08:36 Basophils % (Manual) 1.0 % (0.0-1.8) 10/12/20 08:36 Metamyelocytes % 2.0 % 09/08/20 Unknown Promyelocytes % 0 % 10/04/20 10:32 Nucleated RBC % Not Reportable 10/12/20 08:36 Seg Neutrophils # 9.4 K/mm3 (1.8-7.7) H 10/13/20 04:38 Seg Neutrophils # Man 10.6 K/mm3 (1.8-7.7) H 10/12/20 08:36 Band Neutrophils # 0.0 K/mm3 10/12/20 08:36 Lymphocytes # (Manual) 2.4 K/mm3 (1.2-5.4) 10/12/20 08:36 Abs React Lymphs (Man) 0.0 K/mm3 10/12/20 08:36 Monocytes # (Manual) 0.7 K/mm3 (0.0-0.8) 10/12/20 08:36 Eosinophils # (Manual) 0.3 K/mm3 (0.0-0.4) 10/12/20 08:36 Basophils # (Manual) 0.1 K/mm3 (0.0-0.1) 10/12/20 08:36 Metamyelocytes # 0.0 K/mm3 10/12/20 08:36 Myelocytes # 0.0 K/mm3 10/12/20 08:36 Promyelocytes # 0.0 K/mm3 10/12/20 08:36 Blast Cells # 0.0 K/mm3 10/12/20 08:36 WBC Morphology Not Reportable 10/12/20 08:36 Hypersegmented Neuts Not Reportable 10/12/20 08:36 Hyposegmented Neuts Not Reportable 10/12/20 08:36 Hypogranular Neuts Not Reportable 10/12/20 08:36 Smudge Cells Not Reportable 10/12/20 08:36 Toxic Granulation Not Reportable 10/12/20 08:36 Toxic Vacuolation Not Reportable 10/12/20 08:36 Dohle Bodies Not Reportable 10/12/20 08:36 Pelger-Huet Anomaly Not Reportable 10/12/20 08:36 Justus Rods Not Reportable 10/12/20 08:36 Platelet Estimate Consistent w auto 10/12/20 08:36 Clumped Platelets Not Reportable 10/12/20 08:36 Plt Clumps, EDTA Not Reportable 10/12/20 08:36 Large Platelets Not Reportable 10/12/20 08:36 Giant Platelets Not Reportable 10/12/20 08:36 Platelet Satelliting Not Reportable 10/12/20 08:36 Plt Morphology Comment Not Reportable 10/12/20 08:36 RBC Morphology Not Reportable 10/12/20 08:36 Dimorphic RBCs Not Reportable 10/12/20 08:36 Polychromasia Not Reportable 10/12/20 08:36 Hypochromasia 1+ 10/12/20 08:36 Poikilocytosis Not Reportable 10/12/20 08:36 Anisocytosis Not Reportable 10/12/20 08:36 Microcytosis Not Reportable 10/12/20 08:36 Macrocytosis Not Reportable 10/12/20 08:36 Spherocytes Not Reportable 10/12/20 08:36 Pappenheimer Bodies Not Reportable 10/12/20 08:36 Sickle Cells Not Reportable 10/12/20 08:36 Target Cells Not Reportable 10/12/20 08:36 Tear Drop Cells Not Reportable 10/12/20 08:36 Ovalocytes Not Reportable 10/12/20 08:36 Helmet Cells Not Reportable 10/12/20 08:36 [place] Bodies Not Reportable 10/12/20 08:36 [place] Rings Not Reportable 10/12/20 08:36 Galliano Cells Not Reportable 10/12/20 08:36 Bite Cells Not Reportable 10/12/20 08:36 Crenated Cell Not Reportable 10/12/20 08:36 Elliptocytes Not Reportable 10/12/20 08:36 Acanthocytes (Spur) Not Reportable 10/12/20 08:36 Rouleaux Not Reportable 10/12/20 08:36 Hemoglobin C Crystals Not Reportable 10/12/20 08:36 Schistocytes Not Reportable 10/12/20 08:36 Malaria parasites Not Reportable 10/12/20 08:36 [place] Bodies Not Reportable 10/12/20 08:36 Hem Pathologist Commnt No 10/12/20 08:36 PT 16.1 Sec. (12.2-14.9) H 09/12/20 04:00 INR 1.31 (0.87-1.13) H 09/12/20 04:00 APTT 32.4 Sec. (24.2-36.6) 09/09/20 10:00 D-Dimer 8315.85 ng/mlDDU (0-234) H 09/07/20 14:00 ABG pH 7.468 (7.320-7.450) H 10/02/20 10:16 POC ABG pCO2 37.1 mmHg (32.0-48.0) 10/02/20 10:16 ABG pCO2 33.4 mm Hg 09/11/20 05:40 POC ABG pO2 72.9 mmHg (83-108) L 10/02/20 10:16 ABG pO2 112.1 mm Hg (80.0-90.0) H 09/11/20 05:40 POC ABG HCO3 26.3 10/02/20 10:16 ABG HCO3 28.1 mmol/L (20.0-26.0) H 09/11/20 05:40 ABG O2 Saturation 98.4 % (95.0-99.0) 09/11/20 05:40 ABG O2 Content 11.6 (0.0-44) 09/11/20 05:40 POC ABG Base Excess 2.6 10/02/20 10:16 ABG Base Excess 5.4 mmol/L (-2.0-3.0) H 09/11/20 05:40 ABG Hemoglobin 10.1 (12.0-17.5) L 10/02/20 10:16 ABG Oxyhemoglobin 93.1 (94-98) L 10/02/20 10:16 ABG Carboxyhemoglobin 1.2 % (0.0-5.0) 09/11/20 05:40 ABG Methemoglobin 0.3 (0.0-1.5) 10/02/20 10:16 ABG Sodium 138.5 mmol/L (136.0-145.0) 10/02/20 10:16 ABG Potassium 3.9 mmol/L (3.40-4.50) 10/02/20 10:16 ABG Chloride 108.0 mmol/L (98-107) H 10/02/20 10:16 ABG Glucose 289 mg/dL (65-95) H 10/02/20 10:16 Oxyhemoglobin 96.8 % (95.0-99.0) 09/11/20 05:40 Carboxyhemoglobin 0.8 (0.5-1.5) 10/02/20 10:16 FiO2 35 10/02/20 10:16 Sodium 133 mmol/L (137-145) L 10/13/20 04:38 Potassium 4.1 mmol/L (3.6-5.0) 10/13/20 04:38 Chloride 95.1 mmol/L (98-107) L 10/13/20 04:38 Carbon Dioxide 26 mmol/L (22-30) 10/13/20 04:38 Anion Gap 16 mmol/L 10/13/20 04:38 BUN 103 mg/dL (9-20) H 10/13/20 04:38 Creatinine 5.4 mg/dL (0.8-1.3) H 10/13/20 04:38 Estimated GFR 13 ml/min 10/13/20 04:38 BUN/Creatinine Ratio 19 % 10/13/20 04:38 Glucose 229 mg/dL (75-100) H 10/13/20 04:38 POC Glucose 160 mg/dL (70-105) H 10/13/20 00:26 Lactic Acid 2.90 mmol/L (0.7-2.0) H* 09/17/20 13:52 Calcium 9.6 mg/dL (8.4-10.2) 10/13/20 04:38 Phosphorus 8.00 mg/dL (2.5-4.5) H 09/08/20 12:02 Magnesium 1.80 mg/dL (1.7-2.3) 09/08/20 12:02 Ferritin > 2000.0 ng/mL (30.0-300.0) H 09/07/20 14:00 Total Bilirubin 0.30 mg/dL (0.1-1.2) 10/06/20 10:12 Direct Bilirubin 0.5 mg/dL (0-0.2) H 09/08/20 05:00 Indirect Bilirubin 0.5 mg/dL 09/08/20 05:00 AST 52 units/L (5-40) H 10/06/20 10:12 ALT 28 units/L (7-56) 10/06/20 10:12 Alkaline Phosphatase 94 units/L (35-129) 10/06/20 10:12 Ammonia 50.0 umol/L (25-60) 09/07/20 14:00 Lactate Dehydrogenase 882 units/L (91-180) H 09/07/20 14:00 Total Creatine Kinase 477 units/L (55-170) H 09/07/20 14:00 Troponin T 0.076 ng/mL (0.00-0.029) H 09/07/20 14:00 C-Reactive Protein 1.10 mg/dL (0.00-1.30) 09/07/20 14:00 Total Protein 8.4 g/dL (6.3-8.2) H 10/06/20 10:12 Albumin 2.3 g/dL (3.9-5) L 10/06/20 10:12 Albumin/Globulin Ratio 0.4 % 10/06/20 10:12 Triglycerides 220 mg/dL (2-149) H 09/12/20 Unknown Procalcitonin 2.03 ng/mL (<0.15) 10/12/20 08:19 TSH 2.290 mlU/mL (0.270-4.200) 09/07/20 14:00 Arterial Blood Glucose 289 mg/dL (65-95) H 10/02/20 10:16 Arterial Blood Ionized Calcium 5.2 mg/dL (4.6-5.3) 10/02/20 10:16 Urine Color Yellow (Yellow) 10/12/20 10:25 Urine Turbidity Cloudy (Clear) 10/12/20 10:25 Urine pH 5.0 (5.0-7.0) 10/12/20 10:25 Ur Specific [place] 1.015 (1.003-1.030) 10/12/20 10:25 Urine Protein 100 mg/dl mg/dL (Negative) 10/12/20 10:25 Urine Glucose (UA) Neg mg/dL (Negative) 10/12/20 10:25 Urine Ketones Neg mg/dL (Negative) 10/12/20 10:25 Urine Blood Mod (Negative) 10/12/20 10:25 Urine Nitrite Neg (Negative) 10/12/20 10:25 Urine Bilirubin Neg (Negative) 10/12/20 10:25 Urine Urobilinogen < 2.0 mg/dL (<2.0) 10/12/20 10:25 Ur Leukocyte Esterase Mod (Negative) 10/12/20 10:25 Urine WBC (Auto) 171.0 /HPF (0.0-6.0) H 10/12/20 10:25 Urine RBC (Auto) 75.0 /HPF (0.0-6.0) 10/12/20 10:25 U Epithel Cells (Auto) 6.0 /HPF (0-13.0) 10/12/20 10:25 Urine Bacteria (Auto) 4+ /HPF (Negative) 10/12/20 10:25 Urine WBC Clumps 3+ /HPF 10/12/20 10:25 Hyaline Casts 1 /LPF 10/05/20 09:15 Urine Mucus Few /HPF 10/05/20 09:15 Urine Yeast (Budding) 3+ /HPF 10/12/20 10:25 Urine Sperm 3+ /HPF (CLINICAL EXERCISE PHYSIOLOGIST) 09/07/20 13:08 Urine Creatinine 182.4 mg/dL (0.1-20.0) H 09/08/20 Unknown Urine Sodium 40 mmol/L 09/08/20 Unknown Salicylates < 0.3 mg/dL (2.8-20.0) L 09/07/20 14:00 Acetaminophen 5.0 ug/mL (10.0-30.0) L 09/07/20 14:00 Valproic Acid 58.9 ug/mL (50-100) 10/04/20 04:55 Plasma/Serum Alcohol < 0.01 % (0-0.07) 09/07/20 14:00 Coronavirus (PCR) Negative (Negative) 10/03/20 10:01 Hepatitis A IgM Ab Non-reactive (NonReactive) 09/07/20 14:00 Hep Bs Antigen Non-reactive (Negative) 09/07/20 14:00 Hep B Core IgM Ab Non-reactive (NonReactive) 09/07/20 14:00 Hepatitis C Antibody Non-reactive (NonReactive) 09/07/20 14:00 HIV 1&2 Antibody Rapid Non react (Non React) 09/07/20 14:34 HIV P24 Antigen Non react (Non React) 09/07/20 14:34 Blood Type O POSITIVE 10/12/20 11:04 Antibody Screen Negative 10/12/20 11:04 Crossmatch See Detail 10/12/20 11:04 Microbiology: Microbiology 10/12/20 08:19 Peripheral/Venous Blood Culture - Preliminary Culture in Progress 10/12/20 08:48 Peripheral/Venous Blood Culture - Preliminary Culture in Progress Mae/IV: Voiding Method Condom Catheter IV Catheter Type [Right Triple Lumen Cath Femoral] IV Catheter Type [Left Peripheral IV Antecubital] IV Catheter Type [Left Hand] Peripheral IV IV Catheter Type [Right Peripheral IV Antecubital] Active Medications - Current Medications Current Medications: Generic Name Dose Route Start Last Admin Trade Name Freq PRN Reason Stop Dose Admin Acetaminophen 650 mg 10/02/20 09:00 10/12/20 09:31 Acetaminophen 325 Mg/10.15 Ml Oral Liqd Unit Dose PO 650 mg Q4HR PRN Administration Non Cardiac Pain or Temp>100.5 Amiodarone HCl 200 mg 10/05/20 11:00 10/13/20 09:59 Amiodarone 200 Mg Tab PO 200 mg BID TAYLOR Administration Lipase/Protease/Amylase 1 each 09/09/20 09:40 Lipase 10,500/Protease 25,000/Amylase 43,750 (Units) Dr Armenta FEEDTUBE PRN PRN For Clogged Feeding Tube Hydralazine HCl 50 mg 09/23/20 14:00 10/13/20 06:16 Hydralazine 25 Mg Tab PO 50 mg Q8HR TAYLOR Administration Sodium Chloride 100 mls @ 999 mls/hr 09/09/20 13:36 Nacl 0.9% IV JAYJAY PRN Hypotension Cefepime HCl 2 gm in 100 mls @ 200 mls/hr 10/12/20 12:00 10/12/20 12:46 Cefepime/Ns 2 Gm/100 Ml IV 200 mls/hr Q24H TAYLOR Administration Protocol Insulin Glargine 36 units 10/11/20 12:00 10/13/20 09:58 Insulin Glargine 100 Units/Ml SUB-Q 36 units DAILY TAYLOR Administration Insulin Human Lispro 0 unit 09/12/20 12:00 10/13/20 06:17 Insulin Lispro 100 Unit/Ml SUB-Q 4 unit Q6HR TAYLOR Administration Protocol Lansoprazole 30 mg 10/13/20 10:00 10/13/20 09:59 Lansoprazole 30 Mg Solutab FEEDTUBE 30 mg DAILY TAYLOR Administration Levetiracetam 1,500 mg 09/28/20 10:00 10/13/20 09:58 Levetiracetam 500 Mg/5 Ml Oral Liqd PO 1,500 mg BID TAYLOR Administration Multivitamins 5 ml 09/09/20 12:00 10/12/20 09:33 Multivitamins 5 Ml Oral Liquid PO Not Given [facility] Ondansetron HCl 4 mg 09/07/20 17:55 09/19/20 04:00 Ondansetron 4 Mg/2 Ml Inj IV 4 mg Q8H PRN Administration Nausea And Vomiting Senna/Docusate Sodium 2 tab 09/20/20 11:00 Sennosides/Docusate Sodium 8.6/50 Mg Tab PO BID PRN Laxative Effect Simple Syrup 15 ml 09/09/20 09:40 09/17/20 17:43 Simple Syrup 15 Ml FEEDTUBE 15 ml PRN PRN Administration Hypoglycemia Simple Syrup 30 ml 09/09/20 09:40 Simple Syrup 15 Ml FEEDTUBE PRN PRN Hypoglycemia Sodium Bicarbonate 325 mg 09/09/20 09:40 Sodium Bicarbonate 325 Mg Tab FEEDTUBE PRN PRN For Clogged Feeding Tube Sodium Chloride 10 ml 09/07/20 22:00 10/13/20 10:00 Sodium Chloride 0.9% 10 Ml Flush Syringe IV 10 ml BID TAYLOR Administration Sodium Chloride 10 ml 09/07/20 17:55 Sodium Chloride 0.9% 10 Ml Flush Syringe IV PRN PRN LINE FLUSH Valproic Acid 1,000 mg 09/28/20 10:00 10/13/20 09:58 Valproic Acid 250 Mg/5 Ml Oral Liqd FEEDTUBE 1,000 mg BID TAYLOR Administration Nutrition/Malnutrition Assess - Dietary Evaluation Nutrition/Malnutrition Findings: Nutrition Notes Start: 09/08/20 12:01 Freq: Status: Active Protocol: Document 10/10/20 12:17 AT (Rec: 10/10/20 12:26 AT [id number]) Co-Sign 10/10/20 12:17 MK Nutrition Notes Initial or Follow up Reassessment Current Diagnosis Acute Kidney Injury, Respiratory Failure Other Pertinent Diagnosis cardiac arrest, COVID (+), metabolic encephalopathy, pneu Current Diet Nepro 1.8 at 45 mL/hr (goal rate) Labs/Tests Na 133 BUN 84 Cr 4.6 BG 208 Pertinent Medications Lantus Humalog Height 6 ft Weight 156 kg [place] Body Weight (kg) 80.90 BMI 46.6 Weight change and time frame Weight change noted, pt no longer on HD Weight Status Morbidly Obese Subjective/Other Information Follow up for stable TF. Spoke with RN, pt remains tolerating TF and running at goal. Per RN, team is flushing with 200 mL q4h as ordered by MD to compensate for HD cessation. Percent of energy/protein needs met: 100%/64% Burn Absent Trauma Absent GI Symptoms None Difficulty In Swallowing Food Allergy No Skin Integrity/Comment pressure ulcer to lips Current % PO Negligible Minimum of two criteria No Fluid Accumulation Mild (non-severe) #3 Nutrition Diagnosis Increased nutrient needs ( specify in comment below) Diagnosis Progress(for reassessment Continues documentation) #2 Nutrition Diagnosis Increased nutrient needs ( specify in comment below) As Evidenced by Signs and Symptoms pt no longer on HD Diagnosis Progress(for reassessment Resolved documentation) #1 Nutrition Diagnosis Inadequate oral intake Diagnosis Progress(for reassessment Continues documentation) Is patient on ventilator? No Is Patient Ambulatory and/or Out of Bed No REE-([place]-St. Jeor-confined to bed) 2869.872 Kcal/Kg value to use for calculation 12 Approximate Energy Requirements Using 1872 kcal/Kg Calculation Used for Recommendations Kcal/kg Additional Notes PRO needs: 147 -177g (1.25-1.5 g/kg AdBW 118kg) Fluid needs: 7967-8682 mL or per MD Nutrition Intervention Change Diet Order: TF Nutrition Support: Nepro at 45ml/hr Flush with 200mL q4h per MD Kcal 1,944 Protein (gm) 87 Fluid (mL) 785 Goal #1 Meet kcal and protein needs as best as possible via TF Goal #2 Wound healing Anticipated Discharge Needs: TF Follow-Up By: 10/13/20 Additional Comments F/U for stable TF, POC
[2020-10-13] MEDS: MULTIVITAMINS 5 ML ORAL LIQUID PO SCH (11:04)
--- NOTE | 2020-10-13 12:07 | Progress Note ---
Assessment and Plan Cultures: Blood culture 09/07/2020 no growth SARS CoV2 PCR positive 09/07/2020 urine culture: No growth HIV, hepatitis panel: Negative 10/04/2020 blood culture: No growth 10/05/2020 urine culture: Mixed cailin 10/12/2020 blood culture: In process 10/12/2020 urine culture: In process Assessment: 65 years old male with unknown medical history, morbidly obese, brought to the ED by EMS on 09/07/2020 secondary to passing out, found in out of hospital cardiac arrest status post resuscitation, intubated in the field: #New sepsis: UA with pyuria, chest x-ray appears unchanged but thickened upper respiratory secretions. Rule out bacteremia. Prolonged and complicated hospital stay. #[id number] cardiac arrest/shock #Bilateral pneumonia secondary to COVID-19 infection. Inflammatory markers elevated. D-dimer was 8315. apparently, patient was recently hospitalized at [facility] for COVID-19 prior to admission here. Was not a candidate for remdesivir due to hepatic and renal failure. #Acute hypoxic respiratory failure: now s/p trach, PEG. #Acute renal failure: required HD but now off, nephrology closely monitoring. #Acute anoxic encephalopathy. Recs: -f/u blood cultures, urine culture, sputum culture -continue empiric renally adjusted Cefepime, Vancomycin Marisol Stock MD, FACP [facility] ([facility] O: [phone] F: [phone] Subjective Date of service: 10/13/20 Principal diagnosis: Abnormal LFTs, s/p cardiac arrest, acute kidney injury with ATN Interval history: Afebrile. Non verbal. Objective - Exam Narrative Exam: Physical Exam: Constitutional: Unresponsive Head, Ears, Nose: Normocephalic, atraumatic. External ears, nose normal Eyes: Conjunctivae/corneas clear. No icterus. No ptosis. Neck: Trach present Cardiovascular: S1, S2 + Respiratory: AE fair bilaterally and equal GI: Soft, bowel sounds +, G-tube + Musculoskeletal: No pedal edema, no cyanosis. Skin: No rash or abscess Hem/Lymphatic: No palpable cervical or supraclavicular nodes. No lymphangitis Psych: no agitation Neurological: Unresponsive - Constitutional Vitals: Vital Signs Temp Pulse Resp BP Pulse Ox 98.3 F 72 18 141/70 95 10/13/20 08:00 10/13/20 08:00 10/13/20 08:00 10/13/20 08:00 10/13/20 08:35 Temperature -Last 24 Hours Temperature 98.3 F Temperature 98.3 F Temperature 98.2 F Temperature 98.2 F Temperature 99.0 F Temperature 99.0 F - Labs CBC & Chem 7: 10/13/20 04:38 10/13/20 04:38 Labs: Abnormal lab results 10/12/20 10/12/20 10/12/20 Range/Units 08:36 10:52 11:04 WBC (4.5-11.0) K/mm3 RBC (3.65-5.03) M/mm3 Hgb (11.8-15.2) gm/dl Hct 19.9 L* D (35.5-45.6) % RDW (13.2-15.2) % Gaines % (Auto) (0.0-7.3) % Gaines # (Auto) (0.0-0.8) K/mm3 Seg Neutrophils % (40.0-70.0) % Seg Neuts % (Manual) 75.0 H (40.0-70.0) % Seg Neutrophils # (1.8-7.7) K/mm3 Seg Neutrophils # Man 10.6 H (1.8-7.7) K/mm3 Sodium (137-145) mmol/L Chloride (98-107) mmol/L BUN (9-20) mg/dL Creatinine (0.8-1.3) mg/dL Glucose (75-100) mg/dL POC Glucose (70-105) mg/dL Uric Acid (3.5-7.6) mg/dL Crossmatch See Detail 10/12/20 10/13/20 10/13/20 Range/Units 16:19 00:26 04:38 WBC (4.5-11.0) K/mm3 RBC (3.65-5.03) M/mm3 Hgb (11.8-15.2) gm/dl Hct (35.5-45.6) % RDW (13.2-15.2) % Gaines % (Auto) (0.0-7.3) % Gaines # (Auto) (0.0-0.8) K/mm3 Seg Neutrophils % (40.0-70.0) % Seg Neuts % (Manual) (40.0-70.0) % Seg Neutrophils # (1.8-7.7) K/mm3 Seg Neutrophils # Man (1.8-7.7) K/mm3 Sodium 133 L (137-145) mmol/L Chloride 95.1 L (98-107) mmol/L BUN 103 H (9-20) mg/dL Creatinine 5.4 H (0.8-1.3) mg/dL Glucose 229 H (75-100) mg/dL POC Glucose 164 H 160 H (70-105) mg/dL Uric Acid (3.5-7.6) mg/dL Crossmatch 10/13/20 10/13/20 10/13/20 Range/Units 04:38 05:34 08:10 WBC 13.0 H (4.5-11.0) K/mm3 RBC 2.84 L (3.65-5.03) M/mm3 Hgb 8.1 L (11.8-15.2) gm/dl Hct 24.7 L (35.5-45.6) % RDW 18.4 H (13.2-15.2) % Gaines % (Auto) 12.7 H (0.0-7.3) % Gaines # (Auto) 1.6 H (0.0-0.8) K/mm3 Seg Neutrophils % 72.3 H (40.0-70.0) % Seg Neuts % (Manual) (40.0-70.0) % Seg Neutrophils # 9.4 H (1.8-7.7) K/mm3 Seg Neutrophils # Man (1.8-7.7) K/mm3 Sodium (137-145) mmol/L Chloride (98-107) mmol/L BUN (9-20) mg/dL Creatinine (0.8-1.3) mg/dL Glucose (75-100) mg/dL POC Glucose 220 H 247 H (70-105) mg/dL Uric Acid (3.5-7.6) mg/dL Crossmatch 10/13/20 10/13/20 Range/Units 09:29 11:14 WBC (4.5-11.0) K/mm3 RBC (3.65-5.03) M/mm3 Hgb (11.8-15.2) gm/dl Hct (35.5-45.6) % RDW (13.2-15.2) % Gaines % (Auto) (0.0-7.3) % Gaines # (Auto) (0.0-0.8) K/mm3 Seg Neutrophils % (40.0-70.0) % Seg Neuts % (Manual) (40.0-70.0) % Seg Neutrophils # (1.8-7.7) K/mm3 Seg Neutrophils # Man (1.8-7.7) K/mm3 Sodium (137-145) mmol/L Chloride (98-107) mmol/L BUN (9-20) mg/dL Creatinine (0.8-1.3) mg/dL Glucose (75-100) mg/dL POC Glucose 211 H (70-105) mg/dL Uric Acid 8.6 H (3.5-7.6) mg/dL Crossmatch
[2020-10-13] MEDS: CEFEPIME/NS 2 GM/100 ML 2 GM/100 ML BAG IV SCH (12:56)
--- NOTE | 2020-10-13 14:47 | Event Note ---
Had a long discussion with the patient's spouse Yoko today I called her from my cell phone around 2:19 PM, the call lasted for approximately 18 minutes, explained the patient's spouse the patient is not doing very well and that his renal function is not very good his estimated GFR is less than 15 cc/min. At this point I am not seeing any meaningful recovery from renal standpoint as well as overall. If she chooses to proceed with dialysis this will not be without risk, including cardiovascular collapse and remotely as patient is anoxic and nonverbal She is going to discuss with her children and family about how they would like to proceed from here they were thinking about going to LTAC, She told me that she is going to need some help regarding power of contracts attorney from the social service coordinator here She has other family members that she would she would like to talk to before she comes up with any decisions so far I have told her that his prognosis overall is not good and his mortality risk is very high, being bedbound he will be prone to several different complications including pneumonia or urinary tract infection bedsores etc. She told me that she will reach out sometime tonight or tomorrow and will also need some help from the hospital medicine service to understand her 's health a little bit more
[2020-10-13 15:08] LABS: Bacteria,Urine 2+ /HPF (Negative); Bilirubin,Urine NEG (Negative); Blood,Urine MOD (Negative); Color,Urine Yellow (Yellow); Mucus,Urine FEW /HPF; Sperm,Urine FEW /HPF (NP); Urobilinogen,Urine < 2.0 mg/dL (<2.0)
[2020-10-13 15:13] LABS: Creatinine,Urine < 4.2 mg/dL (0.1-20.0)
[2020-10-14] MEDS: INSULIN LISPRO 100 UNIT/ML SUB-Q SCH ×4 (01:32→17:01)
[2020-10-14] MEDS: hydrALAZINE 25 MG TAB PO SCH ×3 (06:28→23:12)
[2020-10-14 06:38] LABS: Basophils % (Auto) 0.2 % (0.0-1.8); Eosinophils # (Auto) 0.2 K/mm3 (0.0-0.4); Eosinophils % (Auto) 1.8 % (0.0-4.3); Hematocrit 24.4 % (35.5-45.6); Hemoglobin 8.3 gm/dl (11.8-15.2); Lymphocytes # (Auto) 1.8 K/mm3 (1.2-5.4); Mean Corpuscular HGB Conc 34 % (32-34); Mean Corpuscular Volume 86 fl (84-94); Monocytes # (Auto) 1.4 K/mm3 (0.0-0.8); Monocytes % (Auto) 13.9 % (0.0-7.3); Platelet Count 219 K/mm3 (140-440); Red Blood Count 2.83 M/mm3 (3.65-5.03)
[2020-10-14 06:42] LABS: Calcium 9.5 mg/dL (8.4-10.2)
[2020-10-14] MEDS: VALPROIC ACID 250 MG/5 ML ORAL LIQD FEEDTUBE SCH ×2 (09:00→23:08)
[2020-10-14] MEDS: AMIODARONE 200 MG TAB PO SCH ×2 (09:01→23:12)
[2020-10-14] MEDS: LANSOPRAZOLE 30 MG SOLUTAB FEEDTUBE SCH (09:01)
[2020-10-14] MEDS: levETIRAcetam 500 MG/5 ML ORAL LIQD PO SCH ×2 (09:01→23:12)
[2020-10-14] MEDS: MULTIVITAMINS 5 ML ORAL LIQUID PO SCH (09:02)
[2020-10-14] MEDS: INSULIN GLARGINE 100 UNITS/ML SUB-Q SCH (09:03)
--- NOTE | 2020-10-14 09:33 | Progress Note ---
Assessment and Plan Assessment and plan: S/p cardiopulmonary arrest (out of hospital) Toxic metabolic encephalopathy +/-anoxic injury Acute hypoxic respiratory failure Nonoliguric acute kidney injury secondary to ATN. Patient status post emergent hemodialysis 09/08. Seizure disorder Hyperkalemia Hypernatremia COVID-19 pneumonia Sepsis Transaminitis Morbid obesity. 09/15/2020. MRI brain for further evaluation. Continue AEDs of valproic acid and Keppra. Continue hemodialysis per nephrology recommendations. Overall prognosis remains guarded and poor. 09/16/2020. ID recommends continue to monitor patient off of antibiotics. Fever most likely of central etiology. Patient with questionable seizures versus myoclonus from anoxic brain injury. Patient unable to undergo MRI due to body habitus. Continue AEDs per neurology recommendations. Inflammatory markers elevated. Patient was recently hospitalized for [place] at the [place] being [place]. Patient not a candidate for remdesivir due to hepatic and renal failure. Viral hepatitis panel negative. Overall prognosis extremely poor. 09/17/2020. Fevers have resolved over the past 48 hours. Continue to monitor off antibiotics per ID recommendations. Patient with questionable seizures versus myoclonus from anoxic brain injury. Patient unable to undergo MRI due to body habitus. EEG is nonspecific but given CT of head findings consistent with anoxic encephalopathy, brain injury. Continue AEDs per neurology recommendations. Inflammatory markers elevated. Patient was recently hospitalized for COVID-19 pneumonia at the [place]. Patient not a candidate for remdesivir due to hepatic and renal failure. Viral hepatitis panel negative. Patient is s/p emergent HD on Friday (hyperK) and Friday - 09/08. Patient also S/p HD 09/15. Continue hemodialysis per nephrology recommendations. Patient currently on AC/PRVC mode ventilation with rate of 30, tidal volume 475, FiO2 30% and PEEP of 6. As stated in neuro note, overall prognosis is very poor. 09/18/2020. Fevers have resolved over the past 72 hours. Continue to monitor off antibiotics per ID recommendations. Leukocytosis persistent for the past 4 days. Patient with questionable seizures/myoclonus from anoxic brain injury. Patient unable to undergo MRI due to body habitus. EEG is nonspecific but given CT of head findings consistent with anoxic encephalopathy, brain injury. Continue AEDs per neurology recommendations. Inflammatory markers elevated. Patient was recently hospitalized for [place] the [place]. Patient not a candidate for remdesivir due to hepatic and renal failure. Viral hepatitis panel negative. Patient currently on AC/PRVC mode ventilation with rate of 30, tidal volume 475, FiO2 30% and PEEP of 6. Overall prognosis remains guarded/poor. 09/19/2020 Fevers have resolved over the past 4 days. Continue to monitor off antibiotics per ID recommendations. Leukocytosis persistent for the past 4 days. Patient with questionable seizures/myoclonus from anoxic brain injury. Patient unable to undergo MRI due to body habitus. EEG is nonspecific but given CT of head findings consistent with anoxic encephalopathy, brain injury. Continue AEDs per neurology recommendations. Inflammatory markers elevated. Patient was recently hospitalized for [place] pneumonia [place] the [place]. Patient not a candidate for remdesivir due to hepatic and renal failure. Viral hepatitis panel negative. Patient currently on AC/PRVC mode ventilation with rate of 30, tidal volume 475, FiO2 30% and PEEP of 6. Overall prognosis remains guarded/poor. 09/20/2020 -Surgery consulted for PEG and trach, will continue to follow. 09/21/2020; patient will have PEG and trach by Dr. hayes today. Prognosis is poor. Continue with current management. Seed Trucker is following for vent management. 09/22/2020; patient had PEG and trach yesterday. 09/23/2020; continue PEG Tube Feeding. 09/24/2020; continue PEG tube feeding, patient is on Keppra, lorazepam and phenyt oin per neurology recommendation. Patient is on hemodialysis and nephrology is following. Management of mechanical ventilation for CCM. 09/25/2020. Continue PEG tube feeding, patient is on Keppra, lorazepam and phenytoin per neurology recommendation. Patient is on hemodialysis and nephrology is following. Management of mechanical ventilation for CCM. Continue PSV/CPAP 07/16. Continue tracheostomy care, secretion control and airway management. 09/26/2020. Patient has tolerated PSV for approximately 48 hours. I discussed with pulmonary possibility of T-piece today. Continue tracheostomy care, secretion control and airway management. If patient tolerates T-piece trials, patient will be transferred to the floor. Continue AEDs of Keppra and phenytoin as well as Ativan as needed per neurology recommendations. Continue hemodialysis per nephrology. Continue TF with aspiration precautions. 09/27/2020. Patient continues to tolerate PSV 12/6 at 30% FiO2. T-piece trials per pulmonary. Continue tracheostomy care, secretion control and airway management. Continue AEDs of Keppra and phenytoin as well as Ativan as needed per neurology recommendations. Continue hemodialysis per nephrology. Continue TF with aspiration precautions. 09/28/2020. Patient for T-piece trials per pulmonary. Continue hemodialysis per nephrology. Continue tracheostomy care, secretion control and airway management. Continue AEDs of Keppra and phenytoin as well as Ativan as needed per neurology recommendations. Continue TF with aspiration precautions. 09/29/2020, continue T-piece trials per pulmonary. Continue hemodialysis per nephrology. Continue strict I/O's and labs daily. Monitor for renal recovery. 09/30/2020. Continue T-piece trials per pulmonary recommendations. Continue tracheostomy care, secretion control and airway management. Continue hemodialysis per nephrology. Tight glycemic control. Continue TF with aspiration precautions. 10/01/2020. Patient with T-piece trials and tolerating. Wean to trach collar per pulmonary. Continue tracheostomy care, secretion control and airway management. Continue hemodialysis per nephrology. Tight glycemic control. Continue TF with aspiration precautions. Case management consultation for placement 10/02/20. Continue T-piece trials per pulmonary recommendations. Continue tracheostomy care, secretion control and airway management. Continue hemodialysis per nephrology. Tight glycemic control. Continue TF with aspiration precautions. 10/03/2020. Continue T-piece trials per pulmonology. Continue tracheostomy care, secretion control and airway management. Continue modalities per nephrology. Discharge planning underway. Needs placement to SNF versus hospice. 10/04/2020. Patient remained febrile with temperature 101 F. Ordered blood culture, chest x-ray, urinalysis. Plan to start antibiotics after blood cultures been obtained. Patient remains hemodynamically stable. Plan to discharge to SNF versus inpatient hospice on the way. 10/05/2020. Started on antibiotics yesterday. Awaiting blood culture. He develo ped atrial fibrillation with RVR and was placed on amiodaron see awaiting placement. E drip with subsequent conversion to SR. Now on amiodarone PO. Discussed with patients - she would like him to go inpatient hospice or a extermination inspector care facility. As per CM, [place] not approving L[place] at this time. As is still undecided about hospice, inpatient hospice is not accepting h im at this time. has placed a referral to a SNF with inpatient dialysis. Awaiting response from the SNF. 10/06/2020. Hb drop noted. Not on therapeutic anticoagulation [atrial fibrillation] due to duration of atrial fibrillation [lasted less than 2 hours] and also drop in hemoglobin. Continue to monitor hemoglobin. Repeat labs ordered today. Vitals stable. Discussed with patient's yesterday 10/07. HR is controlled. Pending placement. As per CM notes, patient denied acceptance at a [facility] as he has [place]. Will discuss with CM to know other options are available. 10/08. Vitals stable. Will discuss discharge plan with spouse today as it looks like only option left is inpatient hospice. 10/09. Vitals stable. Will discuss discharge plan with spouse today as it looks like only option left is inpatient hospice 10/10. Discussed with patient spouse. Patient spouse asking to see patient in the hospital. revenue accounting manager on board. Patient has not had hemodialysis since 10/05. Creatinine stable at 4.6. Nephrology on board 10/11. DC planning underway. Patient spouse to see patient in hospital today. Vitals remained stable. Creatinine stable as well. Increase Lantus to 36 units daily. 10/12. Patient started having fever yesterday-temp 102 Fahrenheit. Stat blood cultures were drawn today, urinalysis, urine culture, chest x-ray, procalcitonin ordered. Start on empirical antibiotics for possible hospital acquired pneumonia. ID consulted. H&H shows hemoglobin 4.6 patient will receive 2 units PRBCs.. Check H&H after admission. Check stool guaiac. 10/13. Patient with new sepsis. Follow-up blood, sputum and urine cultures. Continue empiric antibiotics of cefepime and vancomycin. Chest x-ray appears to be unchanged. Urinalysis revealed pyuria. H&H is stabilized from PRBCs. Continue to follow H&H 10/14. Urine culture reveals yeast. Blood cultures thus far negative. Continue empiric antibiotics of cefepime and vancomycin per ID recommendations. Nephrology had long discussion regarding initiation of hemodialysis. Byproducts Pump Operator conveyed to the spouse Yoko yesterday that prognosis is overall not good and his mortality risk is very high. Nephrology to potentially initiate hemodialysis today. A follow-up discussion with the spouse Yoko and reiterated poor prognosis. All questions answered. History Interval history: 65 y/o male with out of hospital cardiac arrest, acute hypoxic respiratory failure and COVID-19 infection. Hospitalist Physical - Constitutional Vitals: Temp Pulse Resp BP Pulse Ox 98.6 F 72 18 132/61 97 10/14/20 07:57 10/14/20 07:57 10/14/20 07:57 10/14/20 07:57 10/14/20 07:57 General appearance: Present: other (On mechanical ventilation) - EENT Eyes: Present: PERRL, EOM intact ENT: hearing intact, clear oral mucosa, dentition normal - Neck Neck: Present: supple, normal ROM - Respiratory Respiratory effort: normal Respiratory: bilateral: CTA - Cardiovascular Rhythm: regular Heart Sounds: Present: S1 & S2. Absent: gallop, rub - Extremities Extremities: no ischemia, No edema, Full ROM - Abdominal General gastrointestinal: soft, non-tender, non-distended, normal bowel sounds - Integumentary Integumentary: Present: clear, warm, dry - Neurologic Neurologic: CNII-XII intact, moves all extremities HEART Score - HEART Score Troponin: Troponin T 0.076 ng/mL (0.00-0.029) H 09/07/20 14:00 Results - Labs CBC & Chem 7: 10/14/20 05:46 10/14/20 05:46 Labs: Laboratory Last Values WBC 10.4 K/mm3 (4.5-11.0) 10/14/20 05:46 RBC 2.83 M/mm3 (3.65-5.03) L 10/14/20 05:46 Hgb 8.3 gm/dl (11.8-15.2) L 10/14/20 05:46 Hct 24.4 % (35.5-45.6) L 10/14/20 05:46 MCV 86 fl (84-94) 10/14/20 05:46 MCH 29 pg (28-32) 10/14/20 05:46 MCHC 34 % (32-34) 10/14/20 05:46 RDW 18.0 % (13.2-15.2) H 10/14/20 05:46 Plt Count 219 K/mm3 (140-440) 10/14/20 05:46 Lymph % (Auto) 17.0 % (13.4-35.0) 10/14/20 05:46 [place] % (Auto) 13.9 % (0.0-7.3) H 10/14/20 05:46 Eos % (Auto) 1.8 % (0.0-4.3) 10/14/20 05:46 Baso % (Auto) 0.2 % (0.0-1.8) 10/14/20 05:46 Lymph # (Auto) 1.8 K/mm3 (1.2-5.4) 10/14/20 05:46 [place] # (Auto) 1.4 K/mm3 (0.0-0.8) H 10/14/20 05:46 Eos # (Auto) 0.2 K/mm3 (0.0-0.4) 10/14/20 05:46 Baso # (Auto) 0.0 K/mm3 (0.0-0.1) 10/14/20 05:46 Add Manual Diff Complete 10/12/20 08:36 Total Counted 100 10/12/20 08:36 Seg Neutrophils % 67.1 % (40.0-70.0) 10/14/20 05:46 Seg Neuts % (Manual) 75.0 % (40.0-70.0) H 10/12/20 08:36 Band Neutrophils % 8.0 % 09/30/20 06:57 Lymphocytes % (Manual) 17.0 % (13.4-35.0) 10/12/20 08:36 Monocytes % (Manual) 5.0 % (0.0-7.3) 10/12/20 08:36 Eosinophils % (Manual) 2.0 % (0.0-4.3) 10/12/20 08:36 Basophils % (Manual) 1.0 % (0.0-1.8) 10/12/20 08:36 Metamyelocytes % 2.0 % 09/08/20 Unknown Promyelocytes % 0 % 10/04/20 10:32 Nucleated RBC % Not Reportable 10/12/20 08:36 Seg Neutrophils # 7.0 K/mm3 (1.8-7.7) 10/14/20 05:46 Seg Neutrophils # Man 10.6 K/mm3 (1.8-7.7) H 10/12/20 08:36 Band Neutrophils # 0.0 K/mm3 10/12/20 08:36 Lymphocytes # (Manual) 2.4 K/mm3 (1.2-5.4) 10/12/20 08:36 Abs React Lymphs (Man) 0.0 K/mm3 10/12/20 08:36 Monocytes # (Manual) 0.7 K/mm3 (0.0-0.8) 10/12/20 08:36 Eosinophils # (Manual) 0.3 K/mm3 (0.0-0.4) 10/12/20 08:36 Basophils # (Manual) 0.1 K/mm3 (0.0-0.1) 10/12/20 08:36 Metamyelocytes # 0.0 K/mm3 10/12/20 08:36 Myelocytes # 0.0 K/mm3 10/12/20 08:36 Promyelocytes # 0.0 K/mm3 10/12/20 08:36 Blast Cells # 0.0 K/mm3 10/12/20 08:36 WBC Morphology Not Reportable 10/12/20 08:36 Hypersegmented Neuts Not Reportable 10/12/20 08:36 Hyposegmented Neuts Not Reportable 10/12/20 08:36 Hypogranular Neuts Not Reportable 10/12/20 08:36 Smudge Cells Not Reportable 10/12/20 08:36 Toxic Granulation Not Reportable 10/12/20 08:36 Toxic Vacuolation Not Reportable 10/12/20 08:36 Dohle Bodies Not Reportable 10/12/20 08:36 Pelger-Huet Anomaly Not Reportable 10/12/20 08:36 Justus Rods Not Reportable 10/12/20 08:36 Platelet Estimate Consistent w auto 10/12/20 08:36 Clumped Platelets Not Reportable 10/12/20 08:36 Plt Clumps, EDTA Not Reportable 10/12/20 08:36 Large Platelets Not Reportable 10/12/20 08:36 Giant Platelets Not Reportable 10/12/20 08:36 Platelet Satelliting Not Reportable 10/12/20 08:36 Plt Morphology Comment Not Reportable 10/12/20 08:36 RBC Morphology Not Reportable 10/12/20 08:36 Dimorphic RBCs Not Reportable 10/12/20 08:36 Polychromasia Not Reportable 10/12/20 08:36 Hypochromasia 1+ 10/12/20 08:36 Poikilocytosis Not Reportable 10/12/20 08:36 Anisocytosis Not Reportable 10/12/20 08:36 Microcytosis Not Reportable 10/12/20 08:36 Macrocytosis Not Reportable 10/12/20 08:36 Spherocytes Not Reportable 10/12/20 08:36 Pappenheimer Bodies Not Reportable 10/12/20 08:36 Sickle Cells Not Reportable 10/12/20 08:36 Target Cells Not Reportable 10/12/20 08:36 Tear Drop Cells Not Reportable 10/12/20 08:36 Ovalocytes Not Reportable 10/12/20 08:36 Helmet Cells Not Reportable 10/12/20 08:36 Batres-Poole Bodies Not Reportable 10/12/20 08:36 Timewell Rings Not Reportable 10/12/20 08:36 Slater Cells Not Reportable 10/12/20 08:36 Bite Cells Not Reportable 10/12/20 08:36 Crenated Cell Not Reportable 10/12/20 08:36 Elliptocytes Not Reportable 10/12/20 08:36 Acanthocytes (Spur) Not Reportable 10/12/20 08:36 Rouleaux Not Reportable 10/12/20 08:36 Hemoglobin C Crystals Not Reportable 10/12/20 08:36 Schistocytes Not Reportable 10/12/20 08:36 Malaria parasites Not Reportable 10/12/20 08:36 Tommie Bodies Not Reportable 10/12/20 08:36 Hem Pathologist Commnt No 10/12/20 08:36 PT 16.1 Sec. (12.2-14.9) H 09/12/20 04:00 INR 1.31 (0.87-1.13) H 09/12/20 04:00 APTT 32.4 Sec. (24.2-36.6) 09/09/20 10:00 D-Dimer 8315.85 ng/mlDDU (0-234) H 09/07/20 14:00 ABG pH 7.468 (7.320-7.450) H 10/02/20 10:16 POC ABG pCO2 37.1 mmHg (32.0-48.0) 10/02/20 10:16 ABG pCO2 33.4 mm Hg 09/11/20 05:40 POC ABG pO2 72.9 mmHg (83-108) L 10/02/20 10:16 ABG pO2 112.1 mm Hg (80.0-90.0) H 09/11/20 05:40 POC ABG HCO3 26.3 10/02/20 10:16 ABG HCO3 28.1 mmol/L (20.0-26.0) H 09/11/20 05:40 ABG O2 Saturation 98.4 % (95.0-99.0) 09/11/20 05:40 ABG O2 Content 11.6 (0.0-44) 09/11/20 05:40 POC ABG Base Excess 2.6 10/02/20 10:16 ABG Base Excess 5.4 mmol/L (-2.0-3.0) H 09/11/20 05:40 ABG Hemoglobin 10.1 (12.0-17.5) L 10/02/20 10:16 ABG Oxyhemoglobin 93.1 (94-98) L 10/02/20 10:16 ABG Carboxyhemoglobin 1.2 % (0.0-5.0) 09/11/20 05:40 ABG Methemoglobin 0.3 (0.0-1.5) 10/02/20 10:16 ABG Sodium 138.5 mmol/L (136.0-145.0) 10/02/20 10:16 ABG Potassium 3.9 mmol/L (3.40-4.50) 10/02/20 10:16 ABG Chloride 108.0 mmol/L (98-107) H 10/02/20 10:16 ABG Glucose 289 mg/dL (65-95) H 10/02/20 10:16 Oxyhemoglobin 96.8 % (95.0-99.0) 09/11/20 05:40 Carboxyhemoglobin 0.8 (0.5-1.5) 10/02/20 10:16 FiO2 35 10/02/20 10:16 Sodium 134 mmol/L (137-145) L 10/14/20 05:46 Potassium 4.1 mmol/L (3.6-5.0) 10/14/20 05:46 Chloride 95.8 mmol/L (98-107) L 10/14/20 05:46 Carbon Dioxide 28 mmol/L (22-30) 10/14/20 05:46 Anion Gap 14 mmol/L 10/14/20 05:46 BUN 101 mg/dL (9-20) H 10/14/20 05:46 Creatinine 5.2 mg/dL (0.8-1.3) H 10/14/20 05:46 Estimated GFR 14 ml/min 10/14/20 05:46 BUN/Creatinine Ratio 19 % 10/14/20 05:46 Glucose 256 mg/dL (75-100) H 10/14/20 05:46 POC Glucose 251 mg/dL (70-105) H 10/14/20 00:19 Osmolality 353 Mosm/kg 10/13/20 09:29 Lactic Acid 2.90 mmol/L (0.7-2.0) H* 09/17/20 13:52 Uric Acid 8.6 mg/dL (3.5-7.6) H 10/13/20 09:29 Calcium 9.5 mg/dL (8.4-10.2) 10/14/20 05:46 Phosphorus 8.00 mg/dL (2.5-4.5) H 09/08/20 12:02 Magnesium 1.80 mg/dL (1.7-2.3) 09/08/20 12:02 Ferritin > 2000.0 ng/mL (30.0-300.0) H 09/07/20 14:00 Total Bilirubin 0.30 mg/dL (0.1-1.2) 10/06/20 10:12 Direct Bilirubin 0.5 mg/dL (0-0.2) H 09/08/20 05:00 Indirect Bilirubin 0.5 mg/dL 09/08/20 05:00 AST 52 units/L (5-40) H 10/06/20 10:12 ALT 28 units/L (7-56) 10/06/20 10:12 Alkaline Phosphatase 94 units/L (35-129) 10/06/20 10:12 Ammonia 50.0 umol/L (25-60) 09/07/20 14:00 Lactate Dehydrogenase 882 units/L (91-180) H 09/07/20 14:00 Total Creatine Kinase 477 units/L (55-170) H 09/07/20 14:00 Troponin T 0.076 ng/mL (0.00-0.029) H 09/07/20 14:00 C-Reactive Protein 1.10 mg/dL (0.00-1.30) 09/07/20 14:00 Total Protein 8.4 g/dL (6.3-8.2) H 10/06/20 10:12 Albumin 2.3 g/dL (3.9-5) L 10/06/20 10:12 Albumin/Globulin Ratio 0.4 % 10/06/20 10:12 Triglycerides 220 mg/dL (2-149) H 09/12/20 Unknown Procalcitonin 2.03 ng/mL (<0.15) 10/12/20 08:19 TSH 2.290 mlU/mL (0.270-4.200) 09/07/20 14:00 Arterial Blood Glucose 289 mg/dL (65-95) H 10/02/20 10:16 Arterial Blood Ionized Calcium 5.2 mg/dL (4.6-5.3) 10/02/20 10:16 Urine Color Yellow (Yellow) 10/13/20 14:45 Urine Turbidity Slightly-cloudy (Clear) 10/13/20 14:45 Urine pH 5.0 (5.0-7.0) 10/13/20 14:45 Ur Specific [place] 1.014 (1.003-1.030) 10/13/20 14:45 Urine Protein 100 mg/dl mg/dL (Negative) 10/13/20 14:45 Urine Glucose (UA) 50 mg/dL (Negative) 10/13/20 14:45 Urine Ketones Neg mg/dL (Negative) 10/13/20 14:45 Urine Blood Mod (Negative) 10/13/20 14:45 Urine Nitrite Neg (Negative) 10/13/20 14:45 Urine Bilirubin Neg (Negative) 10/13/20 14:45 Urine Urobilinogen < 2.0 mg/dL (<2.0) 10/13/20 14:45 Ur Leukocyte Esterase Neg (Negative) 10/13/20 14:45 Urine WBC (Auto) 6.0 /HPF (0.0-6.0) 10/13/20 14:45 Urine RBC (Auto) 29.0 /HPF (0.0-6.0) 10/13/20 14:45 U Epithel Cells (Auto) 1.0 /HPF (0-13.0) 10/13/20 14:45 Urine Bacteria (Auto) 2+ /HPF (Negative) 10/13/20 14:45 Urine WBC Clumps 3+ /HPF 10/12/20 10:25 Hyaline Casts 1 /LPF 10/05/20 09:15 Urine Mucus Few /HPF 10/13/20 14:45 Urine Yeast (Budding) 3+ /HPF 10/13/20 14:45 Urine Sperm Few /HPF (VULCANIZER OPERATOR) 10/13/20 14:45 Urine Creatinine < 4.2 mg/dL (0.1-20.0) 10/13/20 14:45 Urine Sodium 10 mmol/L 10/13/20 14:45 Salicylates < 0.3 mg/dL (2.8-20.0) L 09/07/20 14:00 Acetaminophen 5.0 ug/mL (10.0-30.0) L 09/07/20 14:00 Valproic Acid 58.9 ug/mL (50-100) 10/04/20 04:55 Plasma/Serum Alcohol < 0.01 % (0-0.07) 09/07/20 14:00 Coronavirus (PCR) Negative (Negative) 10/03/20 10:01 Hepatitis A IgM Ab Non-reactive (NonReactive) 09/07/20 14:00 Hep Bs Antigen Non-reactive (Negative) 09/07/20 14:00 Hep B Core IgM Ab Non-reactive (NonReactive) 09/07/20 14:00 Hepatitis C Antibody Non-reactive (NonReactive) 09/07/20 14:00 HIV 1&2 Antibody Rapid Non react (Non React) 09/07/20 14:34 HIV P24 Antigen Non react (Non React) 09/07/20 14:34 Blood Type O POSITIVE 10/12/20 11:04 Antibody Screen Negative 10/12/20 11:04 Crossmatch See Detail 10/12/20 11:04 Microbiology: Microbiology 10/12/20 Unknown Urine,Catheterized - Straight Catheter Urine Culture - Final YEAST 10/12/20 10:00 Tracheal Aspirate Sputum Culture - Preliminary 10/12/20 08:19 Peripheral/Venous Blood Culture - Preliminary NO GROWTH AFTER 24 HOURS 10/12/20 08:48 Peripheral/Venous Blood Culture - Preliminary NO GROWTH AFTER 24 HOURS Mae/IV: Voiding Method Condom Catheter IV Catheter Type [Right Triple Lumen Cath Femoral] IV Catheter Type [Left Peripheral IV Antecubital] IV Catheter Type [Left Hand] Peripheral IV IV Catheter Type [Right Peripheral IV Antecubital] Active Medications - Current Medications Current Medications: Generic Name Dose Route Start Last Admin Trade Name Freq PRN Reason Stop Dose Admin Acetaminophen 650 mg 10/02/20 09:00 10/12/20 09:31 Acetaminophen 325 Mg/10.15 Ml Oral Liqd Unit Dose PO 650 mg Q4HR PRN Administration Non Cardiac Pain or Temp>100.5 Amiodarone HCl 200 mg 10/05/20 11:00 10/14/20 09:01 Amiodarone 200 Mg Tab PO 200 mg BID TAYLOR Administration Lipase/Protease/Amylase 1 each 09/09/20 09:40 Lipase 10,500/Protease 25,000/Amylase 43,750 (Units) Dr Armenta FEEDTUBE PRN PRN For Clogged Feeding Tube Hydralazine HCl 50 mg 09/23/20 14:00 10/14/20 06:28 Hydralazine 25 Mg Tab PO 50 mg Q8HR TAYLOR Administration Sodium Chloride 100 mls @ 999 mls/hr 09/09/20 13:36 Nacl 0.9% IV JAYJAY PRN Hypotension Cefepime HCl 2 gm in 100 mls @ 200 mls/hr 10/12/20 12:00 10/13/20 12:56 Cefepime/Ns 2 Gm/100 Ml IV 200 mls/hr Q24H TAYLOR Administration Protocol Insulin Glargine 36 units 10/11/20 12:00 10/14/20 09:03 Insulin Glargine 100 Units/Ml SUB-Q 36 units DAILY TAYLOR Administration Insulin Human Lispro 0 unit 09/12/20 12:00 10/14/20 06:31 Insulin Lispro 100 Unit/Ml SUB-Q 4 unit Q6HR TAYLOR Administration Protocol Lansoprazole 30 mg 10/13/20 10:00 10/14/20 09:01 Lansoprazole 30 Mg Solutab FEEDTUBE 30 mg DAILY TAYLOR Administration Levetiracetam 1,500 mg 09/28/20 10:00 10/14/20 09:01 Levetiracetam 500 Mg/5 Ml Oral Liqd PO 1,500 mg BID TAYLOR Administration Multivitamins 5 ml 09/09/20 12:00 10/14/20 09:02 Multivitamins 5 Ml Oral Liquid PO Not Given QDAY TAYLOR Ondansetron HCl 4 mg 09/07/20 17:55 09/19/20 04:00 Ondansetron 4 Mg/2 Ml Inj IV 4 mg Q8H PRN Administration Nausea And Vomiting Senna/Docusate Sodium 2 tab 09/20/20 11:00 Sennosides/Docusate Sodium 8.6/50 Mg Tab PO BID PRN Laxative Effect Simple Syrup 15 ml 09/09/20 09:40 09/17/20 17:43 Simple Syrup 15 Ml FEEDTUBE 15 ml PRN PRN Administration Hypoglycemia Simple Syrup 30 ml 09/09/20 09:40 Simple Syrup 15 Ml FEEDTUBE PRN PRN Hypoglycemia Sodium Bicarbonate 325 mg 09/09/20 09:40 Sodium Bicarbonate 325 Mg Tab FEEDTUBE PRN PRN For Clogged Feeding Tube Sodium Chloride 10 ml 09/07/20 22:00 10/14/20 09:02 Sodium Chloride 0.9% 10 Ml Flush Syringe IV 10 ml BID TAYLOR Administration Sodium Chloride 10 ml 09/07/20 17:55 Sodium Chloride 0.9% 10 Ml Flush Syringe IV PRN PRN LINE FLUSH Valproic Acid 1,000 mg 09/28/20 10:00 10/14/20 09:00 Valproic Acid 250 Mg/5 Ml Oral Liqd FEEDTUBE 1,000 mg BID TAYLOR Administration Nutrition/Malnutrition Assess - Dietary Evaluation Nutrition/Malnutrition Findings: Nutrition Notes Start: 09/08/20 12:01 Freq: Status: Active Protocol: Document 10/13/20 14:01 CW (Rec: 10/13/20 14:11 CW [id number]) Nutrition Notes Initial or Follow up Reassessment Current Diagnosis Acute Kidney Injury, Respiratory Failure Other Pertinent Diagnosis cardiac arrest, COVID (+), metabolic encephalopathy, pneu Current Diet Nepro 1.8 at 45 mL/hr (goal rate) Labs/Tests Na 133 BUN 103 Cr 5.4 BG 229 Pertinent Medications Lantus 36 Units Humalog 4 units Vancomycin in NS at 333 ml/h Height 6 ft Weight 156 kg [place] Body Weight (kg) 80.90 BMI 46.6 Weight change and time frame Weight change noted, pt no longer on HD Weight Status Morbidly Obese Subjective/Other Information F/U for TF stability. Nepro 1. 8 running at 45 ml per hour. TF is being well tolerated. Percent of energy/protein needs met: 100%/64% Burn Absent Trauma Absent GI Symptoms None Difficulty In Swallowing Food Allergy No Skin Integrity/Comment pressure ulcer to lips Current % PO Negligible Minimum of two criteria No Fluid Accumulation Mild (non-severe) #3 Nutrition Diagnosis Increased nutrient needs ( specify in comment below) Comments: protein Diagnosis Progress(for reassessment Continues documentation) #1 Nutrition Diagnosis Inadequate oral intake Diagnosis Progress(for reassessment Continues documentation) Is patient on ventilator? No Is Patient Ambulatory and/or Out of Bed No REE-([place]-confined to bed) 2869.872 Kcal/Kg value to use for calculation 12 Approximate Energy Requirements Using 1872 kcal/Kg Calculation Used for Recommendations Kcal/kg Additional Notes PRO needs: 147 -177g (1.25-1.5 g/kg AdBW 118kg) Fluid needs: 1 ml/kcal or per MD Nutrition Intervention Change Diet Order: TF Nutrition Support: Nepro at 45ml/hr Flush with 200mL q4h per MD Kcal 1,944 Protein (gm) 87 Fluid (mL) 785 Goal #1 Meet kcal and protein needs as best as possible via TF Goal #2 Wound healing Anticipated Discharge Needs: Continous Nepro TF at 45 ml/h Follow-Up By: 10/16/20 Additional Comments F/U Stable TF
--- NOTE | 2020-10-14 11:34 | Progress Note ---
Subjective Principal diagnosis: Abnormal LFTs, s/p cardiac arrest, acute kidney injury with ATN Interval history: Patient was seen today for follow-up of multiple renal related issues, after had a long conversation with patient's and explained her about his mortality risk in X. Poor prognosis She called me and told me that if needed she would like the patient to be dialyzed even though she is aware that during the process of dialysis he can possibly as well, she has discussed this with her family as well Creatinine remained stable between yesterday and today and day before Interdisciplinary notes that also reviewed Events of 24 hours vitals labs intake output medications were reviewed Past medical history: Reviewed Family history: Reviewed Social history: Reviewed Allergies: Reviewed Physical examination: Vitals: Reviewed HEENT: No pallor or icterus oral mucosa moist Neck: Supple no JVD no thyromegaly Chest: Bilateralfew crackles posteriorly Heart: Regular rate and rhythm S1-S2 heard no S3-S4 Abdomen: Soft nontender no voluntary guarding rigidity rebound Extremity: Dry skin less than 1+ peripheral edema Psychiatric: No evidence of agitation and aggression noted Dermatology: No petechial rashes Labs and x-rays: Reviewed from today Assessment and plan Acute kidney injury currently nonoliguric likely felt to be due to acute tubular necrosis which has been felt to be multifactorial, #Will give him 1 dose of erythropoietin today 20,000 units 1 as of today there is no emergent indication for renal replacement therapy Renal function has been stable between October 12 through October 14 patient is nonoliguric there is no emergent indication for renal replacement therapy Serum osmolality is around 353 uric acid is 8.6 Will increase hydration 300 cc every 4 hours for the next 24 hours and follow Has had a long discussion with patient's spouse yesterday at length, even after extensive counseling and education she told me that she would like to proceed with hemodialysis if needed, I told her clearly that at this time patient is considered very high risk for dialysis treatment given his health status as well as anoxic brain injury, told her clearly that he can also during the pr ocess of dialysis and she does understand this. I believe patient's family's expectations are unreal and medically we do have some limitation looking at his overall health status, I understand that they are hopeful for any meaningful recovery but so far I have not seen any meaningful change Please see my telephone conversation as of yesterday in my opinion: Chances of survival very poor, patient will have to face the challenges of being bedbound including urinary tract infection pneumonia sepsis with skin breakdown etc. this has been explained to the patient's spouse Does have underlying chronic kidney disease baseline creatinine around 1.8, upon admission the creatinine was around 5.6 on September 25, 2020 We'll continue to follow and make recommendation for renal standpoint Objective - Vital Signs Vital signs: Vital Signs - 12hr 10/14/20 10/14/20 10/14/20 00:00 00:23 06:14 Temperature 97.3 F L 97.5 F L Pulse Rate 70 69 Respiratory 22 22 Rate Blood Pressure 124/56 129/56 O2 Sat by Pulse 96 96 Oximetry O2 Sat by Pulse 97 Oximetry [ Assessment] 10/14/20 10/14/20 10/14/20 06:28 07:57 10:00 Temperature 98.6 F Pulse Rate 69 72 71 Respiratory 18 Rate Blood Pressure 129/56 132/61 O2 Sat by Pulse 97 Oximetry O2 Sat by Pulse Oximetry [ Assessment] - Lab 10/15/20 06:52 10/14/20 05:46 Most recent lab results ABG pH 7.468 (7.320-7.450) H 10/02/20 10:16 ABG pCO2 33.4 mm Hg 09/11/20 05:40 ABG pO2 112.1 mm Hg (80.0-90.0) H 09/11/20 05:40 ABG HCO3 28.1 mmol/L (20.0-26.0) H 09/11/20 05:40 ABG O2 Saturation 98.4 % (95.0-99.0) 09/11/20 05:40 Calcium 9.5 mg/dL (8.4-10.2) 10/14/20 05:46 Phosphorus 8.00 mg/dL (2.5-4.5) H 09/08/20 12:02 Magnesium 1.80 mg/dL (1.7-2.3) 09/08/20 12:02 Urine Creatinine < 4.2 mg/dL (0.1-20.0) 10/13/20 14:45 Urine Sodium 10 mmol/L 10/13/20 14:45 Medications & Allergies - Medications Allergies/Adverse Reactions: Allergies No Known Allergies Allergy (Verified 09/21/20 21:00) Verified with , no known drug allergies. Home Medications: Home Medications Medication Instructions Recorded Confirmed Last Taken Type Albuterol Sulfate 60 mcg IH PRN 09/11/20 09/11/20 Unknown History Cholecalciferol (Vitamin D3) 25 tab PO DAILY 09/11/20 09/11/20 Unknown History Cozaar 25 tab PO DAILY 09/11/20 09/11/20 Unknown History HumaLOG 14 unit SQ AC 09/11/20 09/11/20 Unknown History Hydralazine HCl 50 tab PO TID 09/11/20 09/11/20 Unknown History Isosorbide Dinitrate 30 mg PO DAILY 09/11/20 09/11/20 Unknown History Lantus VIAL 54 units SQ HS 09/11/20 09/11/20 Unknown History Lasix 20 tab PO DAILY 09/11/20 09/11/20 Unknown History Nifedipine 30 tab PO DAILY 09/11/20 09/11/20 Unknown History Active Medications: Generic Name Dose Route Start Last Admin Trade Name Freq PRN Reason Stop Dose Admin Acetaminophen 650 mg 10/02/20 09:00 10/12/20 09:31 Acetaminophen 325 Mg/10.15 Ml Oral Liqd Unit Dose PO 650 mg Q4HR PRN Administration Non Cardiac Pain or Temp>100.5 Amiodarone HCl 200 mg 10/05/20 11:00 10/14/20 09:01 Amiodarone 200 Mg Tab PO 200 mg BID TAYLOR Administration Lipase/Protease/Amylase 1 each 09/09/20 09:40 Lipase 10,500/Protease 25,000/Amylase 43,750 (Units) Dr Armenta FEEDTUBE PRN PRN For Clogged Feeding Tube Hydralazine HCl 50 mg 09/23/20 14:00 10/14/20 06:28 Hydralazine 25 Mg Tab PO 50 mg Q8HR TAYLOR Administration Sodium Chloride 100 mls @ 999 mls/hr 09/09/20 13:36 Nacl 0.9% IV JAYJAY PRN Hypotension Cefepime HCl 2 gm in 100 mls @ 200 mls/hr 10/12/20 12:00 10/13/20 12:56 Cefepime/Ns 2 Gm/100 Ml IV 200 mls/hr Q24H TAYLOR Administration Protocol Insulin Glargine 36 units 10/11/20 12:00 10/14/20 09:03 Insulin Glargine 100 Units/Ml SUB-Q 36 units DAILY TAYLOR Administration Insulin Human Lispro 0 unit 09/12/20 12:00 10/14/20 06:31 Insulin Lispro 100 Unit/Ml SUB-Q 4 unit Q6HR TAYLOR Administration Protocol Lansoprazole 30 mg 10/13/20 10:00 10/14/20 09:01 Lansoprazole 30 Mg Solutab FEEDTUBE 30 mg DAILY TAYLOR Administration Levetiracetam 1,500 mg 09/28/20 10:00 10/14/20 09:01 Levetiracetam 500 Mg/5 Ml Oral Liqd PO 1,500 mg BID TAYLOR Administration Multivitamins 5 ml 09/09/20 12:00 10/14/20 09:02 Multivitamins 5 Ml Oral Liquid PO Not Given QDAY TAYLOR Ondansetron HCl 4 mg 09/07/20 17:55 09/19/20 04:00 Ondansetron 4 Mg/2 Ml Inj IV 4 mg Q8H PRN Administration Nausea And Vomiting Senna/Docusate Sodium 2 tab 09/20/20 11:00 Sennosides/Docusate Sodium 8.6/50 Mg Tab PO BID PRN Laxative Effect Simple Syrup 15 ml 09/09/20 09:40 09/17/20 17:43 Simple Syrup 15 Ml FEEDTUBE 15 ml PRN PRN Administration Hypoglycemia Simple Syrup 30 ml 09/09/20 09:40 Simple Syrup 15 Ml FEEDTUBE PRN PRN Hypoglycemia Sodium Bicarbonate 325 mg 09/09/20 09:40 Sodium Bicarbonate 325 Mg Tab FEEDTUBE PRN PRN For Clogged Feeding Tube Sodium Chloride 10 ml 09/07/20 22:00 10/14/20 09:02 Sodium Chloride 0.9% 10 Ml Flush Syringe IV 10 ml BID TAYLOR Administration Sodium Chloride 10 ml 09/07/20 17:55 Sodium Chloride 0.9% 10 Ml Flush Syringe IV PRN PRN LINE FLUSH Valproic Acid 1,000 mg 09/28/20 10:00 10/14/20 09:00 Valproic Acid 250 Mg/5 Ml Oral Liqd FEEDTUBE 1,000 mg BID TAYLOR Administration
[2020-10-14] MEDS: CEFEPIME/NS 2 GM/100 ML 2 GM/100 ML BAG IV SCH (12:22)
[2020-10-15] MEDS: INSULIN LISPRO 100 UNIT/ML SUB-Q SCH ×4 (06:54→16:59)
[2020-10-15] MEDS: hydrALAZINE 25 MG TAB PO SCH ×3 (06:54→21:37)
[2020-10-15 07:19] LABS: Basophils % (Auto) 0.4 % (0.0-1.8); Eosinophils # (Auto) 0.2 K/mm3 (0.0-0.4); Hematocrit 24.1 % (35.5-45.6); Lymphocytes # (Auto) 2.5 K/mm3 (1.2-5.4); Lymphocytes % (Auto) 26.6 % (13.4-35.0); Mean Corpuscular HGB Conc 33 % (32-34); Mean Corpuscular Volume 85 fl (84-94); Monocytes # (Auto) 1.2 K/mm3 (0.0-0.8); Monocytes % (Auto) 12.4 % (0.0-7.3); Platelet Count 233 K/mm3 (140-440); Red Blood Count 2.82 M/mm3 (3.65-5.03); Red Cell Distribution Width 18.3 % (13.2-15.2)
--- NOTE | 2020-10-15 08:38 | Progress Note ---
Subjective Principal diagnosis: Abnormal LFTs, s/p cardiac arrest, acute kidney injury with ATN Interval history: Patient was seen today for follow-up of multiple renal related issues, resting comfortably in bed, densely encephalopathic Creatinine remained stable between yesterday and today and day before Interdisciplinary notes that also reviewed Events of 24 hours vitals labs intake output medications were reviewed Past medical history: Reviewed Family history: Reviewed Social history: Reviewed Allergies: Reviewed Physical examination: Vitals: Reviewed HEENT: No pallor or icterus oral mucosa moist Neck: Supple no JVD no thyromegaly Chest: Bilateralfew crackles posteriorly Heart: Regular rate and rhythm S1-S2 heard no S3-S4 Abdomen: Soft nontender no voluntary guarding rigidity rebound Extremity: Dry skin less than 1+ peripheral edema Psychiatric: No evidence of agitation and aggression noted Dermatology: No petechial rashes Labs and x-rays: Reviewed from today Assessment and plan Acute kidney injury currently nonoliguric likely felt to be due to acute tubular necrosis which has been felt to be multifactorial, patient is currently nonoliguric no urgent or emergent indication for renal replacement therapy His wants to proceed with renal replacement therapy, even though I have told her that patient is high risk for any adverse outcome including mortality risk during dialysis. We will continue to reassess if needed, we will offer a second opinion from renal standpoint Maintain intake and output logs, avoid any nephrotoxic medication Anemia with renal failure patient has received erythropoietin already I have had a long telephone conversation with patient's spouse during this admission His overall prognosis is very poor my impression: Chances of survival very poor, patient will have to face the challenges of being bedbound including urinary tract infection pneumonia sepsis with skin breakdown etc. this has been explained to the patient's spouse, during my phone conversation Does have underlying chronic kidney disease baseline creatinine around 1.8, upon admission the creatinine was around 5.6 on September 25, 2020 We'll continue to follow and make recommendation for renal standpoint Objective - Vital Signs Vital signs: Vital Signs - 12hr 10/14/20 10/14/20 10/15/20 21:02 21:39 02:08 Temperature 98.5 F 97.7 F Pulse Rate 74 72 Respiratory 22 20 Rate Blood Pressure 118/55 129/58 O2 Sat by Pulse 96 99 92 Oximetry O2 Sat by Pulse Oximetry [ Assessment] 10/15/20 10/15/20 10/15/20 03:37 03:41 05:56 Temperature 99.3 F Pulse Rate 72 Respiratory 20 Rate Blood Pressure 142/63 O2 Sat by Pulse 98 95 Oximetry O2 Sat by Pulse 98 Oximetry [ Assessment] 10/15/20 06:54 Temperature Pulse Rate 72 Respiratory Rate Blood Pressure 142/63 O2 Sat by Pulse Oximetry O2 Sat by Pulse Oximetry [ Assessment] - Lab 10/15/20 06:52 10/14/20 05:46 Most recent lab results ABG pH 7.468 (7.320-7.450) H 10/02/20 10:16 ABG pCO2 33.4 mm Hg 09/11/20 05:40 ABG pO2 112.1 mm Hg (80.0-90.0) H 09/11/20 05:40 ABG HCO3 28.1 mmol/L (20.0-26.0) H 09/11/20 05:40 ABG O2 Saturation 98.4 % (95.0-99.0) 09/11/20 05:40 Calcium 9.5 mg/dL (8.4-10.2) 10/14/20 05:46 Phosphorus 8.00 mg/dL (2.5-4.5) H 09/08/20 12:02 Magnesium 1.80 mg/dL (1.7-2.3) 09/08/20 12:02 Urine Creatinine < 4.2 mg/dL (0.1-20.0) 10/13/20 14:45 Urine Sodium 10 mmol/L 10/13/20 14:45 Medications & Allergies - Medications Allergies/Adverse Reactions: Allergies No Known Allergies Allergy (Verified 09/21/20 21:00) Verified with , no known drug allergies. Home Medications: Home Medications Medication Instructions Recorded Confirmed Last Taken Type Albuterol Sulfate 60 mcg IH PRN 09/11/20 09/11/20 Unknown History Cholecalciferol (Vitamin D3) 25 tab PO DAILY 09/11/20 09/11/20 Unknown History Cozaar 25 tab PO DAILY 09/11/20 09/11/20 Unknown History HumaLOG 14 unit SQ AC 09/11/20 09/11/20 Unknown History Hydralazine HCl 50 tab PO TID 09/11/20 09/11/20 Unknown History Isosorbide Dinitrate 30 mg PO DAILY 09/11/20 09/11/20 Unknown History Lantus VIAL 54 units SQ HS 09/11/20 09/11/20 Unknown History Lasix 20 tab PO DAILY 09/11/20 09/11/20 Unknown History Nifedipine 30 tab PO DAILY 09/11/20 09/11/20 Unknown History Active Medications: Generic Name Dose Route Start Last Admin Trade Name Freq PRN Reason Stop Dose Admin Acetaminophen 650 mg 10/02/20 09:00 10/12/20 09:31 Acetaminophen 325 Mg/10.15 Ml Oral Liqd Unit Dose PO 650 mg Q4HR PRN Administration Non Cardiac Pain or Temp>100.5 Amiodarone HCl 200 mg 10/05/20 11:00 10/14/20 23:12 Amiodarone 200 Mg Tab PO 200 mg BID TAYLOR Administration Lipase/Protease/Amylase 1 each 09/09/20 09:40 Lipase 10,500/Protease 25,000/Amylase 43,750 (Units) Dr Armenta FEEDTUBE PRN PRN For Clogged Feeding Tube Hydralazine HCl 50 mg 09/23/20 14:00 10/15/20 06:54 Hydralazine 25 Mg Tab PO 50 mg Q8HR TAYLOR Administration Sodium Chloride 100 mls @ 999 mls/hr 09/09/20 13:36 Nacl 0.9% IV JAYJAY PRN Hypotension Cefepime HCl 2 gm in 100 mls @ 200 mls/hr 10/12/20 12:00 10/14/20 12:22 Cefepime/Ns 2 Gm/100 Ml IV 200 mls/hr Q24H TAYLOR Administration Protocol Insulin Glargine 36 units 10/11/20 12:00 10/14/20 09:03 Insulin Glargine 100 Units/Ml SUB-Q 36 units DAILY TAYLOR Administration Insulin Human Lispro 0 unit 09/12/20 12:00 10/15/20 06:54 Insulin Lispro 100 Unit/Ml SUB-Q 3 unit Q6HR TAYLOR Administration Protocol Lansoprazole 30 mg 10/13/20 10:00 10/14/20 09:01 Lansoprazole 30 Mg Solutab FEEDTUBE 30 mg DAILY TAYLOR Administration Levetiracetam 1,500 mg 09/28/20 10:00 10/14/20 23:12 Levetiracetam 500 Mg/5 Ml Oral Liqd PO 1,500 mg BID TAYLOR Administration Multivitamins 5 ml 09/09/20 12:00 10/14/20 09:02 Multivitamins 5 Ml Oral Liquid PO Not Given QDAY TAYLOR Ondansetron HCl 4 mg 09/07/20 17:55 09/19/20 04:00 Ondansetron 4 Mg/2 Ml Inj IV 4 mg Q8H PRN Administration Nausea And Vomiting Senna/Docusate Sodium 2 tab 09/20/20 11:00 Sennosides/Docusate Sodium 8.6/50 Mg Tab PO BID PRN Laxative Effect Simple Syrup 15 ml 09/09/20 09:40 09/17/20 17:43 Simple Syrup 15 Ml FEEDTUBE 15 ml PRN PRN Administration Hypoglycemia Simple Syrup 30 ml 09/09/20 09:40 Simple Syrup 15 Ml FEEDTUBE PRN PRN Hypoglycemia Sodium Bicarbonate 325 mg 09/09/20 09:40 Sodium Bicarbonate 325 Mg Tab FEEDTUBE PRN PRN For Clogged Feeding Tube Sodium Chloride 10 ml 09/07/20 22:00 10/14/20 23:12 Sodium Chloride 0.9% 10 Ml Flush Syringe IV 10 ml BID TAYLOR Administration Sodium Chloride 10 ml 09/07/20 17:55 Sodium Chloride 0.9% 10 Ml Flush Syringe IV PRN PRN LINE FLUSH Valproic Acid 1,000 mg 09/28/20 10:00 10/14/20 23:08 Valproic Acid 250 Mg/5 Ml Oral Liqd FEEDTUBE 1,000 mg BID TAYLOR Administration
--- NOTE | 2020-10-15 08:46 | Progress Note ---
Assessment and Plan Assessment and plan: S/p cardiopulmonary arrest (out of hospital) Toxic metabolic encephalopathy +/-anoxic injury Acute hypoxic respiratory failure Nonoliguric acute kidney injury secondary to ATN. Patient status post emergent hemodialysis 09/08. Seizure disorder Hyperkalemia Hypernatremia COVID-19 pneumonia Sepsis Transaminitis Morbid obesity. 09/15/2020. MRI brain for further evaluation. Continue AEDs of valproic acid and Keppra. Continue hemodialysis per nephrology recommendations. Overall prognosis remains guarded and poor. 09/16/2020. ID recommends continue to monitor patient off of antibiotics. Fever most likely of central etiology. Patient with questionable seizures versus myoclonus from anoxic brain injury. Patient unable to undergo MRI due to body habitus. Continue AEDs per neurology recommendations. Inflammatory markers elevated. Patient was recently hospitalized for COVID-19 pneumonia at the [place] prior to being hospitalized here. Patient not a candidate for remdesivir due to hepatic and renal failure. Viral hepatitis panel negative. Overall prognosis extremely poor. 09/17/2020. Fevers have resolved over the past 48 hours. Continue to monitor off antibiotics per ID recommendations. Patient with questionable seizures versus myoclonus from anoxic brain injury. Patient unable to undergo MRI due to body habitus. EEG is nonspecific but given CT of head findings consistent with anoxic encephalopathy, brain injury. Continue AEDs per neurology recommendations. Inflammatory markers elevated. Patient was recently hospitalized for COVID-19 pneumonia at the [place] prior to being hospitalized here. Patient not a candidate for remdesivir due to hepatic and renal failure. Viral hepatitis panel negative. Patient is s/p emergent HD on Friday (hyperK) and Friday - 09/08. Patient also S/p HD 09/15. Continue hemodialysis per nephrology recommendations. Patient currently on AC/PRVC mode ventilation with rate of 30, tidal volume 475, FiO2 30% and PEEP of 6. As stated in neuro note, overall prognosis is very poor. 09/18/2020. Fevers have resolved over the past 72 hours. Continue to monitor off antibiotics per ID recommendations. Leukocytosis persistent for the past 4 days. Patient with questionable seizures/myoclonus from anoxic brain injury. Patient unable to undergo MRI due to body habitus. EEG is nonspecific but given CT of head findings consistent with anoxic encephalopathy, brain injury. Continue AEDs per neurology recommendations. Inflammatory markers elevated. Patient was recently hospitalized for COVID-19 pneumonia at the [place] prior to being hospitalized here. Patient not a candidate for remdesivir due to hepatic and renal failure. Viral hepatitis panel negative. Patient currently on AC/PRVC mode ventilation with rate of 30, tidal volume 475, FiO2 30% and PEEP of 6. Overall prognosis remains guarded/poor. 09/19/2020 Fevers have resolved over the past 4 days. Continue to monitor off antibiotics per ID recommendations. Leukocytosis persistent for the past 4 days. Patient with questionable seizures/myoclonus from anoxic brain injury. Patient unable to undergo MRI due to body habitus. EEG is nonspecific but given CT of head findings consistent with anoxic encephalopathy, brain injury. Continue AEDs per neurology recommendations. Inflammatory markers elevated. Patient was recently hospitalized for COVID-19 pneumonia at the [place] prior to being hospitalized here. Patient not a candidate for remdesivir due to hepatic and renal failure. Viral hepatitis panel negative. Patient currently on AC/PRVC mode ventilation with rate of 30, tidal volume 475, FiO2 30% and PEEP of 6. Overall prognosis remains guarded/poor. 09/20/2020 -Surgery consulted for PEG and trach, will continue to follow. 09/21/2020; patient will have PEG and trach by Dr. hayes today. Prognosis is poor. Continue with current management. Cloth Classer is following for vent management. 09/22/2020; patient had PEG and trach yesterday. 09/23/2020; continue PEG Tube Feeding. 09/24/2020; continue PEG tube feeding, patient is on Keppra, lorazepam and phenyt oin per neurology recommendation. Patient is on hemodialysis and nephrology is following. Management of mechanical ventilation for CCM. 09/25/2020. Continue PEG tube feeding, patient is on Keppra, lorazepam and phenytoin per neurology recommendation. Patient is on hemodialysis and nephrology is following. Management of mechanical ventilation for CCM. Continue PSV/CPAP 07/16. Continue tracheostomy care, secretion control and airway management. 09/26/2020. Patient has tolerated PSV for approximately 48 hours. I discussed with pulmonary possibility of T-piece today. Continue tracheostomy care, secretion control and airway management. If patient tolerates T-piece trials, patient will be transferred to the floor. Continue AEDs of Keppra and phenytoin as well as Ativan as needed per neurology recommendations. Continue hemodialysis per nephrology. Continue TF with aspiration precautions. 09/27/2020. Patient continues to tolerate PSV 12/6 at 30% FiO2. T-piece trials per pulmonary. Continue tracheostomy care, secretion control and airway management. Continue AEDs of Keppra and phenytoin as well as Ativan as needed per neurology recommendations. Continue hemodialysis per nephrology. Continue TF with aspiration precautions. 09/28/2020. Patient for T-piece trials per pulmonary. Continue hemodialysis per nephrology. Continue tracheostomy care, secretion control and airway management. Continue AEDs of Keppra and phenytoin as well as Ativan as needed per neurology recommendations. Continue TF with aspiration precautions. 09/29/2020, continue T-piece trials per pulmonary. Continue hemodialysis per nephrology. Continue strict I/O's and labs daily. Monitor for renal recovery. 09/30/2020. Continue T-piece trials per pulmonary recommendations. Continue tracheostomy care, secretion control and airway management. Continue hemodialysis per nephrology. Tight glycemic control. Continue TF with aspiration precautions. 10/01/2020. Patient with T-piece trials and tolerating. Wean to trach collar per pulmonary. Continue tracheostomy care, secretion control and airway management. Continue hemodialysis per nephrology. Tight glycemic control. Continue TF with aspiration precautions. Case management consultation for placement 10/02/20. Continue T-piece trials per pulmonary recommendations. Continue tracheostomy care, secretion control and airway management. Continue hemodialysis per nephrology. Tight glycemic control. Continue TF with aspiration precautions. 10/03/2020. Continue T-piece trials per pulmonology. Continue tracheostomy care, secretion control and airway management. Continue modalities per nephrology. Discharge planning underway. Needs placement to SNF versus hospice. 10/04/2020. Patient remained febrile with temperature 101 F. Ordered blood culture, chest x-ray, urinalysis. Plan to start antibiotics after blood cultures been obtained. Patient remains hemodynamically stable. Plan to discharge to SNF versus inpatient hospice on the way. 10/05/2020. Started on antibiotics yesterday. Awaiting blood culture. He develo ped atrial fibrillation with RVR and was placed on amiodaron see awaiting placement. E drip with subsequent conversion to SR. Now on amiodarone PO. Discussed with patients - she would like him to go inpatient hospice or a manager intermediate care facility. As per CM, [place] not approving LTC placement at this time. As is still undecided about hospice, inpatient hospice is not accepting h im at this time. has placed a referral to a SNF with inpatient dialysis. Awaiting response from the SNF. 10/06/2020. Hb drop noted. Not on therapeutic anticoagulation [atrial fibrillation] due to duration of atrial fibrillation [lasted less than 2 hours] and also drop in hemoglobin. Continue to monitor hemoglobin. Repeat labs ordered today. Vitals stable. Discussed with patient's yesterday 10/07. HR is controlled. Pending placement. As per CM notes, patient denied acceptance at a [facility] as he has [place] insurance. Will discuss with CM to know other options are available. 10/08. Vitals stable. Will discuss discharge plan with spouse today as it looks like only option left is inpatient hospice. 10/09. Vitals stable. Will discuss discharge plan with spouse today as it looks like only option left is inpatient hospice 10/10. Discussed with patient spouse. Patient spouse asking to see patient in the hospital. critical care unit manager on board. Patient has not had hemodialysis since 10/05. Creatinine stable at 4.6. Nephrology on board 10/11. DC planning underway. Patient spouse to see patient in hospital today. Vitals remained stable. Creatinine stable as well. Increase Lantus to 36 units daily. 10/12. Patient started having fever yesterday-temp 102 Fahrenheit. Stat blood cultures were drawn today, urinalysis, urine culture, chest x-ray, procalcitonin ordered. Start on empirical antibiotics for possible hospital acquired pneumonia. ID consulted. H&H shows hemoglobin 4.6 patient will receive 2 units PRBCs.. Check H&H after admission. Check stool guaiac. 10/13. Patient with new sepsis. Follow-up blood, sputum and urine cultures. Continue empiric antibiotics of cefepime and vancomycin. Chest x-ray appears to be unchanged. Urinalysis revealed pyuria. H&H is stabilized from PRBCs. Continue to follow H&H 10/14. Urine culture reveals yeast. Blood cultures thus far negative. Continue empiric antibiotics of cefepime and vancomycin per ID recommendations. Nephrology had long discussion regarding initiation of hemodialysis. Land Surveyor Manager conveyed to the spouse Yoko yesterday that prognosis is overall not good and his mortality risk is very high. Nephrology to potentially initiate hemodialysis today. I had a follow-up discussion with the spouse Yoko and reiterated poor prognosis. All questions answered. 10/15. Continue empiric antibiotics of cefepime and vancomycin per ID recommendations. Prognosis remains poor. Initiation of hemodialysis per nephrology recommendations. History Interval history: 65 y/o male with out of hospital cardiac arrest, acute hypoxic respiratory failure and COVID-19 infection. Hospitalist Physical - Constitutional Vitals: Temp Pulse Resp BP Pulse Ox 99.3 F 72 20 142/63 95 10/15/20 05:56 10/15/20 06:54 10/15/20 05:56 10/15/20 06:54 10/15/20 05:56 General appearance: Present: other (On mechanical ventilation) - EENT Eyes: Present: PERRL, EOM intact ENT: hearing intact, clear oral mucosa, dentition normal - Neck Neck: Present: supple, normal ROM - Respiratory Respiratory effort: normal Respiratory: bilateral: CTA - Cardiovascular Rhythm: regular Heart Sounds: Present: S1 & S2. Absent: gallop, rub - Extremities Extremities: no ischemia, No edema, Full ROM - Abdominal General gastrointestinal: soft, non-tender, non-distended, normal bowel sounds - Integumentary Integumentary: Present: clear, warm, dry - Neurologic Neurologic: CNII-XII intact, moves all extremities HEART Score - HEART Score Troponin: Troponin T 0.076 ng/mL (0.00-0.029) H 09/07/20 14:00 Results - Labs CBC & Chem 7: 10/15/20 06:52 10/14/20 05:46 Labs: Laboratory Last Values WBC 9.6 K/mm3 (4.5-11.0) 10/15/20 06:52 RBC 2.82 M/mm3 (3.65-5.03) L 10/15/20 06:52 Hgb 8.0 gm/dl (11.8-15.2) L 10/15/20 06:52 Hct 24.1 % (35.5-45.6) L 10/15/20 06:52 MCV 85 fl (84-94) 10/15/20 06:52 MCH 29 pg (28-32) 10/15/20 06:52 MCHC 33 % (32-34) 10/15/20 06:52 RDW 18.3 % (13.2-15.2) H 10/15/20 06:52 Plt Count 233 K/mm3 (140-440) 10/15/20 06:52 Lymph % (Auto) 26.6 % (13.4-35.0) 10/15/20 06:52 [place] % (Auto) 12.4 % (0.0-7.3) H 10/15/20 06:52 Eos % (Auto) 2.0 % (0.0-4.3) 10/15/20 06:52 Baso % (Auto) 0.4 % (0.0-1.8) 10/15/20 06:52 Lymph # (Auto) 2.5 K/mm3 (1.2-5.4) 10/15/20 06:52 [place] # (Auto) 1.2 K/mm3 (0.0-0.8) H 10/15/20 06:52 Eos # (Auto) 0.2 K/mm3 (0.0-0.4) 10/15/20 06:52 Baso # (Auto) 0.0 K/mm3 (0.0-0.1) 10/15/20 06:52 Add Manual Diff Complete 10/12/20 08:36 Total Counted 100 10/12/20 08:36 Seg Neutrophils % 58.6 % (40.0-70.0) 10/15/20 06:52 Seg Neuts % (Manual) 75.0 % (40.0-70.0) H 10/12/20 08:36 Band Neutrophils % 8.0 % 09/30/20 06:57 Lymphocytes % (Manual) 17.0 % (13.4-35.0) 10/12/20 08:36 Monocytes % (Manual) 5.0 % (0.0-7.3) 10/12/20 08:36 Eosinophils % (Manual) 2.0 % (0.0-4.3) 10/12/20 08:36 Basophils % (Manual) 1.0 % (0.0-1.8) 10/12/20 08:36 Metamyelocytes % 2.0 % 09/08/20 Unknown Promyelocytes % 0 % 10/04/20 10:32 Nucleated RBC % Not Reportable 10/12/20 08:36 Seg Neutrophils # 5.6 K/mm3 (1.8-7.7) 10/15/20 06:52 Seg Neutrophils # Man 10.6 K/mm3 (1.8-7.7) H 10/12/20 08:36 Band Neutrophils # 0.0 K/mm3 10/12/20 08:36 Lymphocytes # (Manual) 2.4 K/mm3 (1.2-5.4) 10/12/20 08:36 Abs React Lymphs (Man) 0.0 K/mm3 10/12/20 08:36 Monocytes # (Manual) 0.7 K/mm3 (0.0-0.8) 10/12/20 08:36 Eosinophils # (Manual) 0.3 K/mm3 (0.0-0.4) 10/12/20 08:36 Basophils # (Manual) 0.1 K/mm3 (0.0-0.1) 10/12/20 08:36 Metamyelocytes # 0.0 K/mm3 10/12/20 08:36 Myelocytes # 0.0 K/mm3 10/12/20 08:36 Promyelocytes # 0.0 K/mm3 10/12/20 08:36 Blast Cells # 0.0 K/mm3 10/12/20 08:36 WBC Morphology Not Reportable 10/12/20 08:36 Hypersegmented Neuts Not Reportable 10/12/20 08:36 Hyposegmented Neuts Not Reportable 10/12/20 08:36 Hypogranular Neuts Not Reportable 10/12/20 08:36 Smudge Cells Not Reportable 10/12/20 08:36 Toxic Granulation Not Reportable 10/12/20 08:36 Toxic Vacuolation Not Reportable 10/12/20 08:36 Dohle Bodies Not Reportable 10/12/20 08:36 Pelger-Huet Anomaly Not Reportable 10/12/20 08:36 Justus Rods Not Reportable 10/12/20 08:36 Platelet Estimate Consistent w auto 10/12/20 08:36 Clumped Platelets Not Reportable 10/12/20 08:36 Plt Clumps, EDTA Not Reportable 10/12/20 08:36 Large Platelets Not Reportable 10/12/20 08:36 Giant Platelets Not Reportable 10/12/20 08:36 Platelet Satelliting Not Reportable 10/12/20 08:36 Plt Morphology Comment Not Reportable 10/12/20 08:36 RBC Morphology Not Reportable 10/12/20 08:36 Dimorphic RBCs Not Reportable 10/12/20 08:36 Polychromasia Not Reportable 10/12/20 08:36 Hypochromasia 1+ 10/12/20 08:36 Poikilocytosis Not Reportable 10/12/20 08:36 Anisocytosis Not Reportable 10/12/20 08:36 Microcytosis Not Reportable 10/12/20 08:36 Macrocytosis Not Reportable 10/12/20 08:36 Spherocytes Not Reportable 10/12/20 08:36 Pappenheimer Bodies Not Reportable 10/12/20 08:36 Sickle Cells Not Reportable 10/12/20 08:36 Target Cells Not Reportable 10/12/20 08:36 Tear Drop Cells Not Reportable 10/12/20 08:36 Ovalocytes Not Reportable 10/12/20 08:36 Helmet Cells Not Reportable 10/12/20 08:36 Batres-Terrell Bodies Not Reportable 10/12/20 08:36 Boyd Rings Not Reportable 10/12/20 08:36 [place] Cells Not Reportable 10/12/20 08:36 Bite Cells Not Reportable 10/12/20 08:36 Crenated Cell Not Reportable 10/12/20 08:36 Elliptocytes Not Reportable 10/12/20 08:36 Acanthocytes (Spur) Not Reportable 10/12/20 08:36 Rouleaux Not Reportable 10/12/20 08:36 Hemoglobin C Crystals Not Reportable 10/12/20 08:36 Schistocytes Not Reportable 10/12/20 08:36 Malaria parasites Not Reportable 10/12/20 08:36 Tommie Bodies Not Reportable 10/12/20 08:36 Hem Pathologist Commnt No 10/12/20 08:36 PT 16.1 Sec. (12.2-14.9) H 09/12/20 04:00 INR 1.31 (0.87-1.13) H 09/12/20 04:00 APTT 32.4 Sec. (24.2-36.6) 09/09/20 10:00 D-Dimer 8315.85 ng/mlDDU (0-234) H 09/07/20 14:00 ABG pH 7.468 (7.320-7.450) H 10/02/20 10:16 POC ABG pCO2 37.1 mmHg (32.0-48.0) 10/02/20 10:16 ABG pCO2 33.4 mm Hg 09/11/20 05:40 POC ABG pO2 72.9 mmHg (83-108) L 10/02/20 10:16 ABG pO2 112.1 mm Hg (80.0-90.0) H 09/11/20 05:40 POC ABG HCO3 26.3 10/02/20 10:16 ABG HCO3 28.1 mmol/L (20.0-26.0) H 09/11/20 05:40 ABG O2 Saturation 98.4 % (95.0-99.0) 09/11/20 05:40 ABG O2 Content 11.6 (0.0-44) 09/11/20 05:40 POC ABG Base Excess 2.6 10/02/20 10:16 ABG Base Excess 5.4 mmol/L (-2.0-3.0) H 09/11/20 05:40 ABG Hemoglobin 10.1 (12.0-17.5) L 10/02/20 10:16 ABG Oxyhemoglobin 93.1 (94-98) L 10/02/20 10:16 ABG Carboxyhemoglobin 1.2 % (0.0-5.0) 09/11/20 05:40 ABG Methemoglobin 0.3 (0.0-1.5) 10/02/20 10:16 ABG Sodium 138.5 mmol/L (136.0-145.0) 10/02/20 10:16 ABG Potassium 3.9 mmol/L (3.40-4.50) 10/02/20 10:16 ABG Chloride 108.0 mmol/L (98-107) H 10/02/20 10:16 ABG Glucose 289 mg/dL (65-95) H 10/02/20 10:16 Oxyhemoglobin 96.8 % (95.0-99.0) 09/11/20 05:40 Carboxyhemoglobin 0.8 (0.5-1.5) 10/02/20 10:16 FiO2 35 10/02/20 10:16 Sodium 134 mmol/L (137-145) L 10/14/20 05:46 Potassium 4.1 mmol/L (3.6-5.0) 10/14/20 05:46 Chloride 95.8 mmol/L (98-107) L 10/14/20 05:46 Carbon Dioxide 28 mmol/L (22-30) 10/14/20 05:46 Anion Gap 14 mmol/L 10/14/20 05:46 BUN 101 mg/dL (9-20) H 10/14/20 05:46 Creatinine 5.2 mg/dL (0.8-1.3) H 10/14/20 05:46 Estimated GFR 14 ml/min 10/14/20 05:46 BUN/Creatinine Ratio 19 % 10/14/20 05:46 Glucose 256 mg/dL (75-100) H 10/14/20 05:46 POC Glucose 202 mg/dL (70-105) H 10/15/20 01:14 Osmolality 353 Mosm/kg 10/13/20 09:29 Lactic Acid 2.90 mmol/L (0.7-2.0) H* 09/17/20 13:52 Uric Acid 8.6 mg/dL (3.5-7.6) H 10/13/20 09:29 Calcium 9.5 mg/dL (8.4-10.2) 10/14/20 05:46 Phosphorus 8.00 mg/dL (2.5-4.5) H 09/08/20 12:02 Magnesium 1.80 mg/dL (1.7-2.3) 09/08/20 12:02 Ferritin > 2000.0 ng/mL (30.0-300.0) H 09/07/20 14:00 Total Bilirubin 0.30 mg/dL (0.1-1.2) 10/06/20 10:12 Direct Bilirubin 0.5 mg/dL (0-0.2) H 09/08/20 05:00 Indirect Bilirubin 0.5 mg/dL 09/08/20 05:00 AST 52 units/L (5-40) H 10/06/20 10:12 ALT 28 units/L (7-56) 10/06/20 10:12 Alkaline Phosphatase 94 units/L (35-129) 10/06/20 10:12 Ammonia 50.0 umol/L (25-60) 09/07/20 14:00 Lactate Dehydrogenase 882 units/L (91-180) H 09/07/20 14:00 Total Creatine Kinase 477 units/L (55-170) H 09/07/20 14:00 Troponin T 0.076 ng/mL (0.00-0.029) H 09/07/20 14:00 C-Reactive Protein 1.10 mg/dL (0.00-1.30) 09/07/20 14:00 Total Protein 8.4 g/dL (6.3-8.2) H 10/06/20 10:12 Albumin 2.3 g/dL (3.9-5) L 10/06/20 10:12 Albumin/Globulin Ratio 0.4 % 10/06/20 10:12 Triglycerides 220 mg/dL (2-149) H 09/12/20 Unknown Procalcitonin 2.03 ng/mL (<0.15) 10/12/20 08:19 TSH 2.290 mlU/mL (0.270-4.200) 09/07/20 14:00 Arterial Blood Glucose 289 mg/dL (65-95) H 10/02/20 10:16 Arterial Blood Ionized Calcium 5.2 mg/dL (4.6-5.3) 10/02/20 10:16 Urine Color Yellow (Yellow) 10/13/20 14:45 Urine Turbidity Slightly-cloudy (Clear) 10/13/20 14:45 Urine pH 5.0 (5.0-7.0) 10/13/20 14:45 Ur Specific [place] 1.014 (1.003-1.030) 10/13/20 14:45 Urine Protein 100 mg/dl mg/dL (Negative) 10/13/20 14:45 Urine Glucose (UA) 50 mg/dL (Negative) 10/13/20 14:45 Urine Ketones Neg mg/dL (Negative) 10/13/20 14:45 Urine Blood Mod (Negative) 10/13/20 14:45 Urine Nitrite Neg (Negative) 10/13/20 14:45 Urine Bilirubin Neg (Negative) 10/13/20 14:45 Urine Urobilinogen < 2.0 mg/dL (<2.0) 10/13/20 14:45 Ur Leukocyte Esterase Neg (Negative) 10/13/20 14:45 Urine WBC (Auto) 6.0 /HPF (0.0-6.0) 10/13/20 14:45 Urine RBC (Auto) 29.0 /HPF (0.0-6.0) 10/13/20 14:45 U Epithel Cells (Auto) 1.0 /HPF (0-13.0) 10/13/20 14:45 Urine Bacteria (Auto) 2+ /HPF (Negative) 10/13/20 14:45 Urine WBC Clumps 3+ /HPF 10/12/20 10:25 Hyaline Casts 1 /LPF 10/05/20 09:15 Urine Mucus Few /HPF 10/13/20 14:45 Urine Yeast (Budding) 3+ /HPF 10/13/20 14:45 Urine Sperm Few /HPF (TRANSFORMATION MANAGER) 10/13/20 14:45 Urine Creatinine < 4.2 mg/dL (0.1-20.0) 10/13/20 14:45 Urine Sodium 10 mmol/L 10/13/20 14:45 Random Vancomycin 12.4 ug/mL (0-40.0) 10/15/20 06:52 Salicylates < 0.3 mg/dL (2.8-20.0) L 09/07/20 14:00 Acetaminophen 5.0 ug/mL (10.0-30.0) L 09/07/20 14:00 Valproic Acid 58.9 ug/mL (50-100) 10/04/20 04:55 Plasma/Serum Alcohol < 0.01 % (0-0.07) 09/07/20 14:00 Coronavirus (PCR) Negative (Negative) 10/03/20 10:01 Hepatitis A IgM Ab Non-reactive (NonReactive) 09/07/20 14:00 Hep Bs Antigen Non-reactive (Negative) 09/07/20 14:00 Hep B Core IgM Ab Non-reactive (NonReactive) 09/07/20 14:00 Hepatitis C Antibody Non-reactive (NonReactive) 09/07/20 14:00 HIV 1&2 Antibody Rapid Non react (Non React) 09/07/20 14:34 HIV P24 Antigen Non react (Non React) 09/07/20 14:34 Blood Type O POSITIVE 10/12/20 11:04 Antibody Screen Negative 10/12/20 11:04 Crossmatch See Detail 10/12/20 11:04 Microbiology: Microbiology 10/12/20 08:19 Peripheral/Venous Blood Culture - Preliminary NO GROWTH AFTER 48 HOURS 10/12/20 08:48 Peripheral/Venous Blood Culture - Preliminary NO GROWTH AFTER 48 HOURS Mae/IV: Voiding Method Condom Catheter IV Catheter Type [Right Triple Lumen Cath Femoral] IV Catheter Type [Left Peripheral IV Antecubital] IV Catheter Type [Left Hand] Peripheral IV IV Catheter Type [Right Peripheral IV Antecubital] Active Medications - Current Medications Current Medications: Generic Name Dose Route Start Last Admin Trade Name Freq PRN Reason Stop Dose Admin Acetaminophen 650 mg 10/02/20 09:00 10/12/20 09:31 Acetaminophen 325 Mg/10.15 Ml Oral Liqd Unit Dose PO 650 mg Q4HR PRN Administration Non Cardiac Pain or Temp>100.5 Amiodarone HCl 200 mg 10/05/20 11:00 10/14/20 23:12 Amiodarone 200 Mg Tab PO 200 mg BID TAYLOR Administration Lipase/Protease/Amylase 1 each 09/09/20 09:40 Lipase 10,500/Protease 25,000/Amylase 43,750 (Units) Dr Armenta FEEDTUBE PRN PRN For Clogged Feeding Tube Hydralazine HCl 50 mg 09/23/20 14:00 10/15/20 06:54 Hydralazine 25 Mg Tab PO 50 mg Q8HR TAYLOR Administration Sodium Chloride 100 mls @ 999 mls/hr 09/09/20 13:36 Nacl 0.9% IV JAYJAY PRN Hypotension Cefepime HCl 2 gm in 100 mls @ 200 mls/hr 10/12/20 12:00 10/14/20 12:22 Cefepime/Ns 2 Gm/100 Ml IV 200 mls/hr Q24H TAYLOR Administration Protocol Insulin Glargine 36 units 10/11/20 12:00 10/14/20 09:03 Insulin Glargine 100 Units/Ml SUB-Q 36 units DAILY TAYLOR Administration Insulin Human Lispro 0 unit 09/12/20 12:00 10/15/20 06:54 Insulin Lispro 100 Unit/Ml SUB-Q 3 unit Q6HR TAYLOR Administration Protocol Lansoprazole 30 mg 10/13/20 10:00 10/14/20 09:01 Lansoprazole 30 Mg Solutab FEEDTUBE 30 mg DAILY TAYLOR Administration Levetiracetam 1,500 mg 09/28/20 10:00 10/14/20 23:12 Levetiracetam 500 Mg/5 Ml Oral Liqd PO 1,500 mg BID TAYLOR Administration Multivitamins 5 ml 09/09/20 12:00 10/14/20 09:02 Multivitamins 5 Ml Oral Liquid PO Not Given QDAY TAYLOR Ondansetron HCl 4 mg 09/07/20 17:55 09/19/20 04:00 Ondansetron 4 Mg/2 Ml Inj IV 4 mg Q8H PRN Administration Nausea And Vomiting Senna/Docusate Sodium 2 tab 09/20/20 11:00 Sennosides/Docusate Sodium 8.6/50 Mg Tab PO BID PRN Laxative Effect Simple Syrup 15 ml 09/09/20 09:40 09/17/20 17:43 Simple Syrup 15 Ml FEEDTUBE 15 ml PRN PRN Administration Hypoglycemia Simple Syrup 30 ml 09/09/20 09:40 Simple Syrup 15 Ml FEEDTUBE PRN PRN Hypoglycemia Sodium Bicarbonate 325 mg 09/09/20 09:40 Sodium Bicarbonate 325 Mg Tab FEEDTUBE PRN PRN For Clogged Feeding Tube Sodium Chloride 10 ml 09/07/20 22:00 10/14/20 23:12 Sodium Chloride 0.9% 10 Ml Flush Syringe IV 10 ml BID TAYLOR Administration Sodium Chloride 10 ml 09/07/20 17:55 Sodium Chloride 0.9% 10 Ml Flush Syringe IV PRN PRN LINE FLUSH Valproic Acid 1,000 mg 09/28/20 10:00 10/14/20 23:08 Valproic Acid 250 Mg/5 Ml Oral Liqd FEEDTUBE 1,000 mg BID TAYLOR Administration Nutrition/Malnutrition Assess - Dietary Evaluation Nutrition/Malnutrition Findings: Nutrition Notes Start: 09/08/20 12:01 Freq: Status: Active Protocol: Document 10/13/20 14:01 CW (Rec: 10/13/20 14:11 CW [id number]) Nutrition Notes Initial or Follow up Reassessment Current Diagnosis Acute Kidney Injury, Respiratory Failure Other Pertinent Diagnosis cardiac arrest, COVID (+), metabolic encephalopathy, pneu Current Diet Nepro 1.8 at 45 mL/hr (goal rate) Labs/Tests Na 133 BUN 103 Cr 5.4 BG 229 Pertinent Medications Lantus 36 Units Humalog 4 units Vancomycin in NS at 333 ml/h Height 6 ft Weight 156 kg [place] Body Weight (kg) 80.90 BMI 46.6 Weight change and time frame Weight change noted, pt no longer on HD Weight Status Morbidly Obese Subjective/Other Information F/U for TF stability. Nepro 1. 8 running at 45 ml per hour. TF is being well tolerated. Percent of energy/protein needs met: 100%/64% Burn Absent Trauma Absent GI Symptoms None Difficulty In Swallowing Food Allergy No Skin Integrity/Comment pressure ulcer to lips Current % PO Negligible Minimum of two criteria No Fluid Accumulation Mild (non-severe) #3 Nutrition Diagnosis Increased nutrient needs ( specify in comment below) Comments: protein Diagnosis Progress(for reassessment Continues documentation) #1 Nutrition Diagnosis Inadequate oral intake Diagnosis Progress(for reassessment Continues documentation) Is patient on ventilator? No Is Patient Ambulatory and/or Out of Bed No REE-([facility]-confined to bed) 2869.872 Kcal/Kg value to use for calculation 12 Approximate Energy Requirements Using 1872 kcal/Kg Calculation Used for Recommendations Kcal/kg Additional Notes PRO needs: 147 -177g (1.25-1.5 g/kg AdBW 118kg) Fluid needs: 1 ml/kcal or per MD Nutrition Intervention Change Diet Order: TF Nutrition Support: Nepro at 45ml/hr Flush with 200mL q4h per MD Kcal 1,944 Protein (gm) 87 Fluid (mL) 785 Goal #1 Meet kcal and protein needs as best as possible via TF Goal #2 Wound healing Anticipated Discharge Needs: Continous Nepro TF at 45 ml/h Follow-Up By: 10/16/20 Additional Comments F/U Stable TF
[2020-10-15] MEDS: AMIODARONE 200 MG TAB PO SCH ×2 (09:15→21:37)
[2020-10-15] MEDS: levETIRAcetam 500 MG/5 ML ORAL LIQD PO SCH ×2 (09:15→21:37)
[2020-10-15] MEDS: LANSOPRAZOLE 30 MG SOLUTAB FEEDTUBE SCH (09:15)
[2020-10-15] MEDS: MULTIVITAMINS 5 ML ORAL LIQUID PO SCH (09:16)
[2020-10-15] MEDS: VALPROIC ACID 250 MG/5 ML ORAL LIQD FEEDTUBE SCH ×2 (09:16→21:37)
[2020-10-15] MEDS: INSULIN GLARGINE 100 UNITS/ML SUB-Q SCH (09:19)
[2020-10-15] MEDS: CEFEPIME/NS 2 GM/100 ML 2 GM/100 ML BAG IV SCH (12:09)
[2020-10-16] MEDS: hydrALAZINE 25 MG TAB PO SCH ×3 (06:18→22:55)
[2020-10-16] MEDS: INSULIN LISPRO 100 UNIT/ML SUB-Q SCH ×4 (06:43→18:19)
--- NOTE | 2020-10-16 08:28 | Progress Note ---
Assessment and Plan Assessment and plan: S/p cardiopulmonary arrest (out of hospital) Toxic metabolic encephalopathy +/-anoxic injury Acute hypoxic respiratory failure Nonoliguric acute kidney injury secondary to ATN. Patient status post emergent hemodialysis 09/08. Seizure disorder Hyperkalemia Hypernatremia COVID-19 pneumonia Sepsis Transaminitis Morbid obesity. 09/15/2020. MRI brain for further evaluation. Continue AEDs of valproic acid and Keppra. Continue hemodialysis per nephrology recommendations. Overall prognosis remains guarded and poor. 09/16/2020. ID recommends continue to monitor patient off of antibiotics. Fever most likely of central etiology. Patient with questionable seizures versus myoclonus from anoxic brain injury. Patient unable to undergo MRI due to body habitus. Continue AEDs per neurology recommendations. Inflammatory markers elevated. Patient was recently hospitalized for COVID-19 pneumonia at the [facility] prior to being hospitalized here. Patient not a candidate for remdesivir due to hepatic and renal failure. Viral hepatitis panel negative. Overall prognosis extremely poor. 09/17/2020. Fevers have resolved over the past 48 hours. Continue to monitor off antibiotics per ID recommendations. Patient with questionable seizures versus myoclonus from anoxic brain injury. Patient unable to undergo MRI due to body habitus. EEG is nonspecific but given CT of head findings consistent with anoxic encephalopathy, brain injury. Continue AEDs per neurology recommendations. Inflammatory markers elevated. Patient was recently hospitalized for COVID-19 pneumonia at the [facility] prior to being hospitalized here. Patient not a candidate for remdesivir due to hepatic and renal failure. Viral hepatitis panel negative. Patient is s/p emergent HD on Friday (hyperK) and Friday - 09/08. Patient also S/p HD 09/15. Continue hemodialysis per nephrology recommendations. Patient currently on AC/PRVC mode ventilation with rate of 30, tidal volume 475, FiO2 30% and PEEP of 6. As stated in neuro note, overall prognosis is very poor. 09/18/2020. Fevers have resolved over the past 72 hours. Continue to monitor off antibiotics per ID recommendations. Leukocytosis persistent for the past 4 days. Patient with questionable seizures/myoclonus from anoxic brain injury. Patient unable to undergo MRI due to body habitus. EEG is nonspecific but given CT of head findings consistent with anoxic encephalopathy, brain injury. Continue AEDs per neurology recommendations. Inflammatory markers elevated. Patient was recently hospitalized for COVID-19 pneumonia at the [facility] to being hospitalized here. Patient not a candidate for remdesivir due to hepatic and renal failure. Viral hepatitis panel negative. Patient currently on AC/PRVC mode ventilation with rate of 30, tidal volume 475, FiO2 30% and PEEP of 6. Overall prognosis remains guarded/poor. 09/19/2020 Fevers have resolved over the past 4 days. Continue to monitor off antibiotics per ID recommendations. Leukocytosis persistent for the past 4 days. Patient with questionable seizures/myoclonus from anoxic brain injury. Patient unable to undergo MRI due to body habitus. EEG is nonspecific but given CT of head findings consistent with anoxic encephalopathy, brain injury. Continue AEDs per neurology recommendations. Inflammatory markers elevated. Patient was recently hospitalized for COVID-19 pneumonia at the [facility] to being hospitalized here. Patient not a candidate for remdesivir due to hepatic and renal failure. Viral hepatitis panel negative. Patient currently on AC/PRVC mode ventilation with rate of 30, tidal volume 475, FiO2 30% and PEEP of 6. Overall prognosis remains guarded/poor. 09/20/2020 -Surgery consulted for PEG and trach, will continue to follow. 09/21/2020; patient will have PEG and trach by Dr. hayes today. Prognosis is poor. Continue with current management. Gas Combustion Engineer is following for vent management. 09/22/2020; patient had PEG and trach yesterday. 09/23/2020; continue PEG Tube Feeding. 09/24/2020; continue PEG tube feeding, patient is on Keppra, lorazepam and phenyt oin per neurology recommendation. Patient is on hemodialysis and nephrology is following. Management of mechanical ventilation for CCM. 09/25/2020. Continue PEG tube feeding, patient is on Keppra, lorazepam and phenytoin per neurology recommendation. Patient is on hemodialysis and nephrology is following. Management of mechanical ventilation for CCM. Continue PSV/CPAP 07/16. Continue tracheostomy care, secretion control and airway management. 09/26/2020. Patient has tolerated PSV for approximately 48 hours. I discussed with pulmonary possibility of T-piece today. Continue tracheostomy care, secretion control and airway management. If patient tolerates T-piece trials, patient will be transferred to the floor. Continue AEDs of Keppra and phenytoin as well as Ativan as needed per neurology recommendations. Continue hemodialysis per nephrology. Continue TF with aspiration precautions. 09/27/2020. Patient continues to tolerate PSV 12/6 at 30% FiO2. T-piece trials per pulmonary. Continue tracheostomy care, secretion control and airway management. Continue AEDs of Keppra and phenytoin as well as Ativan as needed per neurology recommendations. Continue hemodialysis per nephrology. Continue TF with aspiration precautions. 09/28/2020. Patient for T-piece trials per pulmonary. Continue hemodialysis per nephrology. Continue tracheostomy care, secretion control and airway management. Continue AEDs of Keppra and phenytoin as well as Ativan as needed per neurology recommendations. Continue TF with aspiration precautions. 09/29/2020, continue T-piece trials per pulmonary. Continue hemodialysis per nephrology. Continue strict I/O's and labs daily. Monitor for renal recovery. 09/30/2020. Continue T-piece trials per pulmonary recommendations. Continue tracheostomy care, secretion control and airway management. Continue hemodialysis per nephrology. Tight glycemic control. Continue TF with aspiration precautions. 10/01/2020. Patient with T-piece trials and tolerating. Wean to trach collar per pulmonary. Continue tracheostomy care, secretion control and airway management. Continue hemodialysis per nephrology. Tight glycemic control. Continue TF with aspiration precautions. Case management consultation for placement 10/02/20. Continue T-piece trials per pulmonary recommendations. Continue tracheostomy care, secretion control and airway management. Continue hemodialysis per nephrology. Tight glycemic control. Continue TF with aspiration precautions. 10/03/2020. Continue T-piece trials per pulmonology. Continue tracheostomy care, secretion control and airway management. Continue modalities per nephrology. Discharge planning underway. Needs placement to SNF versus hospice. 10/04/2020. Patient remained febrile with temperature 101 F. Ordered blood culture, chest x-ray, urinalysis. Plan to start antibiotics after blood cultures been obtained. Patient remains hemodynamically stable. Plan to discharge to SNF versus inpatient hospice on the way. 10/05/2020. Started on antibiotics yesterday. Awaiting blood culture. He develo ped atrial fibrillation with RVR and was placed on amiodaron see awaiting placement. E drip with subsequent conversion to SR. Now on amiodarone PO. Discussed with patients - she would like him to go inpatient hospice or a [facility] care facility. As per CM, [facility] not approving L[facility] placement at this time. As is still undecided about hospice, inpatient hospice is not accepting h im at this time. has placed a referral to a SNF with inpatient dialysis. Awaiting response from the SNF. 10/06/2020. Hb drop noted. Not on therapeutic anticoagulation [atrial fibrillation] due to duration of atrial fibrillation [lasted less than 2 hours] and also drop in hemoglobin. Continue to monitor hemoglobin. Repeat labs ordered today. Vitals stable. Discussed with patient's yesterday 10/07. HR is controlled. Pending placement. As per CM notes, patient denied acceptance at a [facility] as he has [facility]. Will discuss with CM to know other options are available. 10/08. Vitals stable. Will discuss discharge plan with spouse today as it looks like only option left is inpatient hospice. 10/09. Vitals stable. Will discuss discharge plan with spouse today as it looks like only option left is inpatient hospice 10/10. Discussed with patient spouse. Patient spouse asking to see patient in the hospital. biodiesel product development manager on board. Patient has not had hemodialysis since 10/05. Creatinine stable at 4.6. Nephrology on board 10/11. DC planning underway. Patient spouse to see patient in hospital today. Vitals remained stable. Creatinine stable as well. Increase Lantus to 36 units daily. 10/12. Patient started having fever yesterday-temp 102 Fahrenheit. Stat blood cultures were drawn today, urinalysis, urine culture, chest x-ray, procalcitonin ordered. Start on empirical antibiotics for possible hospital acquired pneumonia. ID consulted. H&H shows hemoglobin 4.6 patient will receive 2 units PRBCs.. Check H&H after admission. Check stool guaiac. 10/13. Patient with new sepsis. Follow-up blood, sputum and urine cultures. Continue empiric antibiotics of cefepime and vancomycin. Chest x-ray appears to be unchanged. Urinalysis revealed pyuria. H&H is stabilized from PRBCs. Continue to follow H&H 10/14. Urine culture reveals yeast. Blood cultures thus far negative. Continue empiric antibiotics of cefepime and vancomycin per ID recommendations. Nephrology had long discussion regarding initiation of hemodialysis. Media Marketing Director conveyed to the spouse Yoko yesterday that prognosis is overall not good and his mortality risk is very high. Nephrology to potentially initiate hemodialysis today. I had a follow-up discussion with the spouse Yoko and reiterated poor prognosis. All questions answered. 10/15. Continue empiric antibiotics of cefepime and vancomycin per ID recommendations. Prognosis remains poor. Initiation of hemodialysis per nephrology recommendations. 10/16. PEG tube currently not flushing per nursing. GI consultation for PEG tube dysfunction. Repeat blood cultures have been negative x72 hours. Continue IV antibiotics per ID recommendations. Patient with Acute kidney injury currently nonoliguric likely felt to be due to acute tubular necrosis which has been felt to be multifactorial. Nephrology reports no urgent or emergent indication for renal replacement therapy and that the wants to proceed with renal replacement therapy. Nephrology informed her that patient is high risk for any adverse outcome including mortality risk during dialysis. Overall poor prognosis. History Interval history: 65 y/o male with out of hospital cardiac arrest, acute hypoxic respiratory failure and COVID-19 infection. Hospitalist Physical - Constitutional Vitals: Temp Pulse Resp BP Pulse Ox 98.5 F 74 18 145/66 96 10/16/20 07:55 10/16/20 07:55 10/16/20 04:40 10/16/20 07:55 10/16/20 07:55 General appearance: Present: other (On mechanical ventilation) - EENT Eyes: Present: PERRL, EOM intact ENT: hearing intact, clear oral mucosa, dentition normal - Neck Neck: Present: supple, normal ROM - Respiratory Respiratory effort: normal Respiratory: bilateral: CTA - Cardiovascular Rhythm: regular Heart Sounds: Present: S1 & S2. Absent: gallop, rub - Extremities Extremities: no ischemia, No edema, Full ROM - Abdominal General gastrointestinal: soft, non-tender, non-distended, normal bowel sounds - Integumentary Integumentary: Present: clear, warm, dry - Neurologic Neurologic: CNII-XII intact, moves all extremities HEART Score - HEART Score Troponin: Troponin T 0.076 ng/mL (0.00-0.029) H 09/07/20 14:00 Results - Labs CBC & Chem 7: 10/16/20 07:13 10/14/20 05:46 Labs: Laboratory Last Values WBC 9.6 K/mm3 (4.5-11.0) 10/15/20 06:52 RBC 2.82 M/mm3 (3.65-5.03) L 10/15/20 06:52 Hgb 8.0 gm/dl (11.8-15.2) L 10/15/20 06:52 Hct 24.1 % (35.5-45.6) L 10/15/20 06:52 MCV 85 fl (84-94) 10/15/20 06:52 MCH 29 pg (28-32) 10/15/20 06:52 MCHC 33 % (32-34) 10/15/20 06:52 RDW 18.3 % (13.2-15.2) H 10/15/20 06:52 Plt Count 233 K/mm3 (140-440) 10/15/20 06:52 Lymph % (Auto) 26.6 % (13.4-35.0) 10/15/20 06:52 Dickson % (Auto) 12.4 % (0.0-7.3) H 10/15/20 06:52 Eos % (Auto) 2.0 % (0.0-4.3) 10/15/20 06:52 Baso % (Auto) 0.4 % (0.0-1.8) 10/15/20 06:52 Lymph # (Auto) 2.5 K/mm3 (1.2-5.4) 10/15/20 06:52 Dickson # (Auto) 1.2 K/mm3 (0.0-0.8) H 10/15/20 06:52 Eos # (Auto) 0.2 K/mm3 (0.0-0.4) 10/15/20 06:52 Baso # (Auto) 0.0 K/mm3 (0.0-0.1) 10/15/20 06:52 Add Manual Diff Complete 10/12/20 08:36 Total Counted 100 10/12/20 08:36 Seg Neutrophils % 58.6 % (40.0-70.0) 10/15/20 06:52 Seg Neuts % (Manual) 75.0 % (40.0-70.0) H 10/12/20 08:36 Band Neutrophils % 8.0 % 09/30/20 06:57 Lymphocytes % (Manual) 17.0 % (13.4-35.0) 10/12/20 08:36 Monocytes % (Manual) 5.0 % (0.0-7.3) 10/12/20 08:36 Eosinophils % (Manual) 2.0 % (0.0-4.3) 10/12/20 08:36 Basophils % (Manual) 1.0 % (0.0-1.8) 10/12/20 08:36 Metamyelocytes % 2.0 % 09/08/20 Unknown Promyelocytes % 0 % 10/04/20 10:32 Nucleated RBC % Not Reportable 10/12/20 08:36 Seg Neutrophils # 5.6 K/mm3 (1.8-7.7) 10/15/20 06:52 Seg Neutrophils # Man 10.6 K/mm3 (1.8-7.7) H 10/12/20 08:36 Band Neutrophils # 0.0 K/mm3 10/12/20 08:36 Lymphocytes # (Manual) 2.4 K/mm3 (1.2-5.4) 10/12/20 08:36 Abs React Lymphs (Man) 0.0 K/mm3 10/12/20 08:36 Monocytes # (Manual) 0.7 K/mm3 (0.0-0.8) 10/12/20 08:36 Eosinophils # (Manual) 0.3 K/mm3 (0.0-0.4) 10/12/20 08:36 Basophils # (Manual) 0.1 K/mm3 (0.0-0.1) 10/12/20 08:36 Metamyelocytes # 0.0 K/mm3 10/12/20 08:36 Myelocytes # 0.0 K/mm3 10/12/20 08:36 Promyelocytes # 0.0 K/mm3 10/12/20 08:36 Blast Cells # 0.0 K/mm3 10/12/20 08:36 WBC Morphology Not Reportable 10/12/20 08:36 Hypersegmented Neuts Not Reportable 10/12/20 08:36 Hyposegmented Neuts Not Reportable 10/12/20 08:36 Hypogranular Neuts Not Reportable 10/12/20 08:36 Smudge Cells Not Reportable 10/12/20 08:36 Toxic Granulation Not Reportable 10/12/20 08:36 Toxic Vacuolation Not Reportable 10/12/20 08:36 Dohle Bodies Not Reportable 10/12/20 08:36 Pelger-Huet Anomaly Not Reportable 10/12/20 08:36 Justus Rods Not Reportable 10/12/20 08:36 Platelet Estimate Consistent w auto 10/12/20 08:36 Clumped Platelets Not Reportable 10/12/20 08:36 Plt Clumps, EDTA Not Reportable 10/12/20 08:36 Large Platelets Not Reportable 10/12/20 08:36 Giant Platelets Not Reportable 10/12/20 08:36 Platelet Satelliting Not Reportable 10/12/20 08:36 Plt Morphology Comment Not Reportable 10/12/20 08:36 RBC Morphology Not Reportable 10/12/20 08:36 Dimorphic RBCs Not Reportable 10/12/20 08:36 Polychromasia Not Reportable 10/12/20 08:36 Hypochromasia 1+ 10/12/20 08:36 Poikilocytosis Not Reportable 10/12/20 08:36 Anisocytosis Not Reportable 10/12/20 08:36 Microcytosis Not Reportable 10/12/20 08:36 Macrocytosis Not Reportable 10/12/20 08:36 Spherocytes Not Reportable 10/12/20 08:36 Pappenheimer Bodies Not Reportable 10/12/20 08:36 Sickle Cells Not Reportable 10/12/20 08:36 Target Cells Not Reportable 10/12/20 08:36 Tear Drop Cells Not Reportable 10/12/20 08:36 Ovalocytes Not Reportable 10/12/20 08:36 Helmet Cells Not Reportable 10/12/20 08:36 [place] Bodies Not Reportable 10/12/20 08:36 [place] Rings Not Reportable 10/12/20 08:36 Manjit Cells Not Reportable 10/12/20 08:36 Bite Cells Not Reportable 10/12/20 08:36 Crenated Cell Not Reportable 10/12/20 08:36 Elliptocytes Not Reportable 10/12/20 08:36 Acanthocytes (Spur) Not Reportable 10/12/20 08:36 Rouleaux Not Reportable 10/12/20 08:36 Hemoglobin C Crystals Not Reportable 10/12/20 08:36 Schistocytes Not Reportable 10/12/20 08:36 Malaria parasites Not Reportable 10/12/20 08:36 [place] Bodies Not Reportable 10/12/20 08:36 Hem Pathologist Commnt No 10/12/20 08:36 PT 16.1 Sec. (12.2-14.9) H 09/12/20 04:00 INR 1.31 (0.87-1.13) H 09/12/20 04:00 APTT 32.4 Sec. (24.2-36.6) 09/09/20 10:00 D-Dimer 8315.85 ng/mlDDU (0-234) H 09/07/20 14:00 ABG pH 7.468 (7.320-7.450) H 10/02/20 10:16 POC ABG pCO2 37.1 mmHg (32.0-48.0) 10/02/20 10:16 ABG pCO2 33.4 mm Hg 09/11/20 05:40 POC ABG pO2 72.9 mmHg (83-108) L 10/02/20 10:16 ABG pO2 112.1 mm Hg (80.0-90.0) H 09/11/20 05:40 POC ABG HCO3 26.3 10/02/20 10:16 ABG HCO3 28.1 mmol/L (20.0-26.0) H 09/11/20 05:40 ABG O2 Saturation 98.4 % (95.0-99.0) 09/11/20 05:40 ABG O2 Content 11.6 (0.0-44) 09/11/20 05:40 POC ABG Base Excess 2.6 10/02/20 10:16 ABG Base Excess 5.4 mmol/L (-2.0-3.0) H 09/11/20 05:40 ABG Hemoglobin 10.1 (12.0-17.5) L 10/02/20 10:16 ABG Oxyhemoglobin 93.1 (94-98) L 10/02/20 10:16 ABG Carboxyhemoglobin 1.2 % (0.0-5.0) 09/11/20 05:40 ABG Methemoglobin 0.3 (0.0-1.5) 10/02/20 10:16 ABG Sodium 138.5 mmol/L (136.0-145.0) 10/02/20 10:16 ABG Potassium 3.9 mmol/L (3.40-4.50) 10/02/20 10:16 ABG Chloride 108.0 mmol/L (98-107) H 10/02/20 10:16 ABG Glucose 289 mg/dL (65-95) H 10/02/20 10:16 Oxyhemoglobin 96.8 % (95.0-99.0) 09/11/20 05:40 Carboxyhemoglobin 0.8 (0.5-1.5) 10/02/20 10:16 FiO2 35 10/02/20 10:16 Sodium 134 mmol/L (137-145) L 10/14/20 05:46 Potassium 4.1 mmol/L (3.6-5.0) 10/14/20 05:46 Chloride 95.8 mmol/L (98-107) L 10/14/20 05:46 Carbon Dioxide 28 mmol/L (22-30) 10/14/20 05:46 Anion Gap 14 mmol/L 10/14/20 05:46 BUN 101 mg/dL (9-20) H 10/14/20 05:46 Creatinine 5.2 mg/dL (0.8-1.3) H 10/14/20 05:46 Estimated GFR 14 ml/min 10/14/20 05:46 BUN/Creatinine Ratio 19 % 10/14/20 05:46 Glucose 256 mg/dL (75-100) H 10/14/20 05:46 POC Glucose 194 mg/dL (70-105) H 10/16/20 06:38 Osmolality 353 Mosm/kg 10/13/20 09:29 Lactic Acid 2.90 mmol/L (0.7-2.0) H* 09/17/20 13:52 Uric Acid 8.6 mg/dL (3.5-7.6) H 10/13/20 09:29 Calcium 9.5 mg/dL (8.4-10.2) 10/14/20 05:46 Phosphorus 8.00 mg/dL (2.5-4.5) H 09/08/20 12:02 Magnesium 1.80 mg/dL (1.7-2.3) 09/08/20 12:02 Ferritin > 2000.0 ng/mL (30.0-300.0) H 09/07/20 14:00 Total Bilirubin 0.30 mg/dL (0.1-1.2) 10/06/20 10:12 Direct Bilirubin 0.5 mg/dL (0-0.2) H 09/08/20 05:00 Indirect Bilirubin 0.5 mg/dL 09/08/20 05:00 AST 52 units/L (5-40) H 10/06/20 10:12 ALT 28 units/L (7-56) 10/06/20 10:12 Alkaline Phosphatase 94 units/L (35-129) 10/06/20 10:12 Ammonia 50.0 umol/L (25-60) 09/07/20 14:00 Lactate Dehydrogenase 882 units/L (91-180) H 09/07/20 14:00 Total Creatine Kinase 477 units/L (55-170) H 09/07/20 14:00 Troponin T 0.076 ng/mL (0.00-0.029) H 09/07/20 14:00 C-Reactive Protein 1.10 mg/dL (0.00-1.30) 09/07/20 14:00 Total Protein 8.4 g/dL (6.3-8.2) H 10/06/20 10:12 Albumin 2.3 g/dL (3.9-5) L 10/06/20 10:12 Albumin/Globulin Ratio 0.4 % 10/06/20 10:12 Triglycerides 220 mg/dL (2-149) H 09/12/20 Unknown Procalcitonin 2.03 ng/mL (<0.15) 10/12/20 08:19 TSH 2.290 mlU/mL (0.270-4.200) 09/07/20 14:00 Arterial Blood Glucose 289 mg/dL (65-95) H 10/02/20 10:16 Arterial Blood Ionized Calcium 5.2 mg/dL (4.6-5.3) 10/02/20 10:16 Urine Color Yellow (Yellow) 10/13/20 14:45 Urine Turbidity Slightly-cloudy (Clear) 10/13/20 14:45 Urine pH 5.0 (5.0-7.0) 10/13/20 14:45 Ur Specific [place] 1.014 (1.003-1.030) 10/13/20 14:45 Urine Protein 100 mg/dl mg/dL (Negative) 10/13/20 14:45 Urine Glucose (UA) 50 mg/dL (Negative) 10/13/20 14:45 Urine Ketones Neg mg/dL (Negative) 10/13/20 14:45 Urine Blood Mod (Negative) 10/13/20 14:45 Urine Nitrite Neg (Negative) 10/13/20 14:45 Urine Bilirubin Neg (Negative) 10/13/20 14:45 Urine Urobilinogen < 2.0 mg/dL (<2.0) 10/13/20 14:45 Ur Leukocyte Esterase Neg (Negative) 10/13/20 14:45 Urine WBC (Auto) 6.0 /HPF (0.0-6.0) 10/13/20 14:45 Urine RBC (Auto) 29.0 /HPF (0.0-6.0) 10/13/20 14:45 U Epithel Cells (Auto) 1.0 /HPF (0-13.0) 10/13/20 14:45 Urine Bacteria (Auto) 2+ /HPF (Negative) 10/13/20 14:45 Urine WBC Clumps 3+ /HPF 10/12/20 10:25 Hyaline Casts 1 /LPF 10/05/20 09:15 Urine Mucus Few /HPF 10/13/20 14:45 Urine Yeast (Budding) 3+ /HPF 10/13/20 14:45 Urine Sperm Few /HPF (SENIOR NURSE MANAGER) 10/13/20 14:45 Urine Creatinine < 4.2 mg/dL (0.1-20.0) 10/13/20 14:45 Urine Sodium 10 mmol/L 10/13/20 14:45 Random Vancomycin 12.4 ug/mL (0-40.0) 10/15/20 06:52 Salicylates < 0.3 mg/dL (2.8-20.0) L 09/07/20 14:00 Acetaminophen 5.0 ug/mL (10.0-30.0) L 09/07/20 14:00 Valproic Acid 58.9 ug/mL (50-100) 10/04/20 04:55 Plasma/Serum Alcohol < 0.01 % (0-0.07) 09/07/20 14:00 Coronavirus (PCR) Negative (Negative) 10/03/20 10:01 Hepatitis A IgM Ab Non-reactive (NonReactive) 09/07/20 14:00 Hep Bs Antigen Non-reactive (Negative) 09/07/20 14:00 Hep B Core IgM Ab Non-reactive (NonReactive) 09/07/20 14:00 Hepatitis C Antibody Non-reactive (NonReactive) 09/07/20 14:00 HIV 1&2 Antibody Rapid Non react (Non React) 09/07/20 14:34 HIV P24 Antigen Non react (Non React) 09/07/20 14:34 Blood Type O POSITIVE 10/12/20 11:04 Antibody Screen Negative 10/12/20 11:04 Crossmatch See Detail 10/12/20 11:04 Microbiology: Microbiology 10/12/20 10:00 Tracheal Aspirate Sputum Culture - Final 10/12/20 08:19 Peripheral/Venous Blood Culture - Preliminary NO GROWTH AFTER 72 HOURS 10/12/20 08:48 Peripheral/Venous Blood Culture - Preliminary NO GROWTH AFTER 72 HOURS Mae/IV: Voiding Method Condom Catheter IV Catheter Type [Right Triple Lumen Cath Femoral] IV Catheter Type [Left Peripheral IV Antecubital] IV Catheter Type [Left Hand] Peripheral IV IV Catheter Type [Right Peripheral IV Antecubital] Active Medications - Current Medications Current Medications: Generic Name Dose Route Start Last Admin Trade Name Freq PRN Reason Stop Dose Admin Acetaminophen 650 mg 10/02/20 09:00 10/12/20 09:31 Acetaminophen 325 Mg/10.15 Ml Oral Liqd Unit Dose PO 650 mg Q4HR PRN Administration Non Cardiac Pain or Temp>100.5 Amiodarone HCl 200 mg 10/05/20 11:00 10/15/20 21:37 Amiodarone 200 Mg Tab PO 200 mg BID TAYLOR Administration Lipase/Protease/Amylase 1 each 09/09/20 09:40 Lipase 10,500/Protease 25,000/Amylase 43,750 (Units) Dr Armenta FEEDTUBE PRN PRN For Clogged Feeding Tube Hydralazine HCl 50 mg 09/23/20 14:00 10/16/20 06:18 Hydralazine 25 Mg Tab PO 50 mg Q8HR TAYLOR Administration Cefepime HCl 2 gm in 100 mls @ 200 mls/hr 10/12/20 12:00 10/15/20 12:09 Cefepime/Ns 2 Gm/100 Ml IV 200 mls/hr Q24H TAYLOR Administration Protocol Insulin Glargine 36 units 10/11/20 12:00 10/15/20 09:19 Insulin Glargine 100 Units/Ml SUB-Q 36 units DAILY TAYLOR Administration Insulin Human Lispro 0 unit 09/12/20 12:00 10/16/20 06:43 Insulin Lispro 100 Unit/Ml SUB-Q 3 unit Q6HR TAYLOR Administration Protocol Lansoprazole 30 mg 10/13/20 10:00 10/15/20 09:15 Lansoprazole 30 Mg Solutab FEEDTUBE 30 mg DAILY TAYLOR Administration Levetiracetam 1,500 mg 09/28/20 10:00 10/15/20 21:37 Levetiracetam 500 Mg/5 Ml Oral Liqd PO 1,500 mg BID TAYLOR Administration Multivitamins 5 ml 09/09/20 12:00 10/15/20 09:16 Multivitamins 5 Ml Oral Liquid PO Not Given QDAY [facility] Ondansetron HCl 4 mg 09/07/20 17:55 09/19/20 04:00 Ondansetron 4 Mg/2 Ml Inj IV 4 mg Q8H PRN Administration Nausea And Vomiting Senna/Docusate Sodium 2 tab 09/20/20 11:00 Sennosides/Docusate Sodium 8.6/50 Mg Tab PO BID PRN Laxative Effect Simple Syrup 15 ml 09/09/20 09:40 09/17/20 17:43 Simple Syrup 15 Ml FEEDTUBE 15 ml PRN PRN Administration Hypoglycemia Simple Syrup 30 ml 09/09/20 09:40 Simple Syrup 15 Ml FEEDTUBE PRN PRN Hypoglycemia Sodium Bicarbonate 325 mg 09/09/20 09:40 Sodium Bicarbonate 325 Mg Tab FEEDTUBE PRN PRN For Clogged Feeding Tube Sodium Chloride 10 ml 09/07/20 22:00 10/15/20 21:38 Sodium Chloride 0.9% 10 Ml Flush Syringe IV 10 ml BID TAYLOR Administration Sodium Chloride 10 ml 09/07/20 17:55 Sodium Chloride 0.9% 10 Ml Flush Syringe IV PRN PRN LINE FLUSH Valproic Acid 1,000 mg 09/28/20 10:00 10/15/20 21:37 Valproic Acid 250 Mg/5 Ml Oral Liqd FEEDTUBE 1,000 mg BID TAYLOR Administration Nutrition/Malnutrition Assess - Dietary Evaluation Nutrition/Malnutrition Findings: Nutrition Notes Start: 09/08/20 12:01 Freq: Status: Active Protocol: Document 10/13/20 14:01 CW (Rec: 10/13/20 14:11 CW [id number]) Nutrition Notes Initial or Follow up Reassessment Current Diagnosis Acute Kidney Injury, Respiratory Failure Other Pertinent Diagnosis cardiac arrest, COVID (+), metabolic encephalopathy, pneu Current Diet Nepro 1.8 at 45 mL/hr (goal rate) Labs/Tests Na 133 BUN 103 Cr 5.4 BG 229 Pertinent Medications Lantus 36 Units Humalog 4 units Vancomycin in NS at 333 ml/h Height 6 ft Weight 156 kg [place] Body Weight (kg) 80.90 BMI 46.6 Weight change and time frame Weight change noted, pt no longer on HD Weight Status Morbidly Obese Subjective/Other Information F/U for TF stability. Nepro 1. 8 running at 45 ml per hour. TF is being well tolerated. Percent of energy/protein needs met: 100%/64% Burn Absent Trauma Absent GI Symptoms None Difficulty In Swallowing Food Allergy No Skin Integrity/Comment pressure ulcer to lips Current % PO Negligible Minimum of two criteria No Fluid Accumulation Mild (non-severe) #3 Nutrition Diagnosis Increased nutrient needs ( specify in comment below) Comments: protein Diagnosis Progress(for reassessment Continues documentation) #1 Nutrition Diagnosis Inadequate oral intake Diagnosis Progress(for reassessment Continues documentation) Is patient on ventilator? No Is Patient Ambulatory and/or Out of Bed No REE-([place]-confined to bed) 2869.872 Kcal/Kg value to use for calculation 12 Approximate Energy Requirements Using 1872 kcal/Kg Calculation Used for Recommendations Kcal/kg Additional Notes PRO needs: 147 -177g (1.25-1.5 g/kg AdBW 118kg) Fluid needs: 1 ml/kcal or per MD Nutrition Intervention Change Diet Order: TF Nutrition Support: Nepro at 45ml/hr Flush with 200mL q4h per MD Kcal 1,944 Protein (gm) 87 Fluid (mL) 785 Goal #1 Meet kcal and protein needs as best as possible via TF Goal #2 Wound healing Anticipated Discharge Needs: Continous Nepro TF at 45 ml/h Follow-Up By: 10/16/20 Additional Comments F/U Stable TF
[2020-10-16] MEDS: LIPASE 10,500/PROTEASE 25,000/AMYLASE 43,750 (UNITS) DR CAP FEEDTUBE PRN (08:34)
[2020-10-16] MEDS: SODIUM BICARBONATE 325 MG TAB FEEDTUBE PRN (08:36)
[2020-10-16 08:37] LABS: Basophils % (Auto) 0.3 % (0.0-1.8); Eosinophils # (Auto) 0.2 K/mm3 (0.0-0.4); Eosinophils % (Auto) 1.9 % (0.0-4.3); Hematocrit 25.3 % (35.5-45.6); Hemoglobin 8.4 gm/dl (11.8-15.2); Lymphocytes # (Auto) 1.6 K/mm3 (1.2-5.4); Lymphocytes % (Auto) 21.2 % (13.4-35.0); Mean Corpuscular HGB Conc 33 % (32-34); Mean Corpuscular Volume 88 fl (84-94); Monocytes # (Auto) 1.1 K/mm3 (0.0-0.8); Monocytes % (Auto) 14.4 % (0.0-7.3); Platelet Count 222 K/mm3 (140-440); Red Blood Count 2.87 M/mm3 (3.65-5.03); Red Cell Distribution Width 18.7 % (13.2-15.2)
[2020-10-16] MEDS: LANSOPRAZOLE 30 MG SOLUTAB FEEDTUBE SCH (10:13)
[2020-10-16] MEDS: levETIRAcetam 500 MG/5 ML ORAL LIQD PO SCH ×2 (10:13→22:55)
[2020-10-16] MEDS: MULTIVITAMINS 5 ML ORAL LIQUID PO SCH (10:14)
[2020-10-16] MEDS: AMIODARONE 200 MG TAB PO SCH ×2 (10:14→22:55)
[2020-10-16] MEDS: INSULIN GLARGINE 100 UNITS/ML SUB-Q SCH (10:14)
[2020-10-16] MEDS: VALPROIC ACID 250 MG/5 ML ORAL LIQD FEEDTUBE SCH ×2 (10:14→22:55)
[2020-10-16] MEDS: CEFEPIME/NS 2 GM/100 ML 2 GM/100 ML BAG IV SCH (12:14)
[2020-10-16 13:16] LABS: Calcium 9.4 mg/dL (8.4-10.2)
--- NOTE | 2020-10-16 15:20 | Progress Note ---
Assessment and Plan Cultures: Blood culture 09/07/2020 no growth SARS CoV2 PCR positive 09/07/2020 urine culture: No growth HIV, hepatitis panel: Negative 10/04/2020 blood culture: No growth 10/05/2020 urine culture: Mixed cailin 10/12/2020 blood culture: No growth 10/12/2020 tracheal aspirate: Usual respiratory cailin 10/12/2020 urine culture: Yeast, non-albicans Assessment: 65 years old male with unknown medical history, morbidly obese, brought to the ED by EMS on 09/07/2020 secondary to passing out, found in out of hospital cardiac arrest status post resuscitation, intubated in the field: #New sepsis: UA with pyuria, chest x-ray appears unchanged but thickened upper respiratory secretions. Ruled out bacteremia. Prolonged and complicated hospital stay. #[id number] cardiac arrest/shock #Bilateral pneumonia secondary to COVID-19 infection. Inflammatory markers elevated. D-dimer was 8315. apparently, patient was recently hospitalized at the [place] for COVID-19 prior to admission here. Was not a candidate for remdesivir due to hepatic and renal failure. #Acute hypoxic respiratory failure: now s/p trach, PEG. #Acute renal failure: required HD but now off, nephrology closely monitoring. #Acute anoxic encephalopathy. Recs: -fevers resolved, all cultures negative, Urine culture with non-albicans wilfredo, likely colonization given prolonged hospital stay and broad spectrum abx exposure. -IV Cefepime, Vancomycin, D5 of 5 Marisol Stock MD, FACP [facility] ([facility]) O: [phone] F: [phone] Subjective Date of service: 10/16/20 Principal diagnosis: Abnormal LFTs, s/p cardiac arrest, acute kidney injury with ATN Interval history: Afebrile. Non verbal. Objective - Exam Narrative Exam: Physical Exam: Constitutional: Unresponsive Head, Ears, Nose: Normocephalic, atraumatic. External ears, nose normal Eyes: Conjunctivae/corneas clear. No icterus. No ptosis. Neck: Trach present Cardiovascular: S1, S2 + Respiratory: AE fair bilaterally and equal GI: Soft, bowel sounds +, G-tube + Musculoskeletal: No pedal edema, no cyanosis. Skin: No rash or abscess Hem/Lymphatic: No palpable cervical or supraclavicular nodes. No lymphangitis Psych: no agitation Neurological: Unresponsive - Constitutional Vitals: Vital Signs Temp Pulse Resp BP Pulse Ox 98.7 F 78 18 138/68 97 10/16/20 12:19 10/16/20 13:29 10/16/20 12:19 10/16/20 13:29 10/16/20 14:19 Temperature -Last 24 Hours Temperature 98.7 F Temperature 98.7 F Temperature 98.5 F Temperature 98.0 F Temperature 98.0 F Temperature 97.6 F Temperature 98.6 F - Labs CBC & Chem 7: 10/16/20 07:13 10/16/20 12:28 Labs: Abnormal lab results 10/15/20 10/16/20 10/16/20 Range/Units 15:42 06:38 07:13 RBC 2.87 L (3.65-5.03) M/mm3 Hgb 8.4 L (11.8-15.2) gm/dl Hct 25.3 L (35.5-45.6) % RDW 18.7 H (13.2-15.2) % Trinity % (Auto) 14.4 H (0.0-7.3) % Trinity # (Auto) 1.1 H (0.0-0.8) K/mm3 Sodium (137-145) mmol/L BUN (9-20) mg/dL Creatinine (0.8-1.3) mg/dL Glucose (75-100) mg/dL POC Glucose 183 H 194 H (70-105) mg/dL 10/16/20 10/16/20 10/16/20 Range/Units 10:07 12:28 12:31 RBC (3.65-5.03) M/mm3 Hgb (11.8-15.2) gm/dl Hct (35.5-45.6) % RDW (13.2-15.2) % Trinity % (Auto) (0.0-7.3) % Trinity # (Auto) (0.0-0.8) K/mm3 Sodium 136 L (137-145) mmol/L BUN 101 H (9-20) mg/dL Creatinine 4.9 H (0.8-1.3) mg/dL Glucose 238 H (75-100) mg/dL POC Glucose 168 H 202 H (70-105) mg/dL
--- NOTE | 2020-10-16 16:53 | Progress Note ---
Assessment and Plan Assessment and plan #Acute kidney injury on chronic kidney disease, baseline creatinine around 1.8, briefly on iHD, currently nonoliguric likely felt to be due to acute tubular necrosis (multifactorial). No emergent indication for renal replacement therapy. However he is a poor candidate for renal replacement therapy, however as per discussion of prior cook relief with the , she would like to proceed with [employer] if needed. Maintain intake and output logs, avoid any nephrotoxic medication Anemia with renal failure, s/p erythropoietin Keep MAP > 65 Renally dose medications - antibiotics and antiepileptics #Out of hospital cardiac arrest #Anoxic encephalopathy, s/p trach and PEG #Bilateral pneumonia due to Covid infection - ID following, s/p trach Subjective Date of service: 10/16/20 Principal diagnosis: Abnormal LFTs, s/p cardiac arrest, acute kidney injury with ATN Interval history: Remains unresponsive Trached Patient was seen for his renal issues Nursing, interdisciplinary and consult notes were reviewed Vitals, input and output, medications and labs were reviewed Objective - Exam Narrative Exam: General: No acute distress HEENT: Oral mucosa moist Neck: Supple, no JVD Chest: Trached. Heart: RRR, S1 and S2, no pericardial rub Abdomen: Soft, nontender, no renal bruit Extremity: No peripheral cyanosis, edema Neurological: Unresponsive Dermatology: No skin rash Psych: No agitation Musculoskeletal: No joint effusion - Vital Signs Vital signs: Vital Signs - 12hr 10/16/20 10/16/20 10/16/20 07:55 08:32 10:00 Temperature 98.5 F Pulse Rate 74 75 Pulse Rate [ 75 Right Radial] Respiratory 17 Rate Blood Pressure 145/66 Blood Pressure [Right] O2 Sat by Pulse 96 97 Oximetry O2 Sat by Pulse Oximetry [ Assessment] 10/16/20 10/16/20 10/16/20 10:40 12:19 13:29 Temperature 98.7 F 98.7 F Pulse Rate 81 81 78 Pulse Rate [ Right Radial] Respiratory 18 Rate Blood Pressure 138/68 Blood Pressure 141/75 141/72 [Right] O2 Sat by Pulse 97 Oximetry O2 Sat by Pulse Oximetry [ Assessment] 10/16/20 10/16/20 14:19 15:48 Temperature 99.6 F Pulse Rate 73 Pulse Rate [ Right Radial] Respiratory Rate Blood Pressure 134/65 Blood Pressure [Right] O2 Sat by Pulse 95 Oximetry O2 Sat by Pulse 97 Oximetry [ Assessment] - Lab 10/16/20 07:13 10/16/20 12:28 Most recent lab results ABG pH 7.468 (7.320-7.450) H 10/02/20 10:16 ABG pCO2 33.4 mm Hg 09/11/20 05:40 ABG pO2 112.1 mm Hg (80.0-90.0) H 09/11/20 05:40 ABG HCO3 28.1 mmol/L (20.0-26.0) H 09/11/20 05:40 ABG O2 Saturation 98.4 % (95.0-99.0) 09/11/20 05:40 Calcium 9.4 mg/dL (8.4-10.2) 10/16/20 12:28 Phosphorus 8.00 mg/dL (2.5-4.5) H 09/08/20 12:02 Magnesium 1.80 mg/dL (1.7-2.3) 09/08/20 12:02 Urine Creatinine < 4.2 mg/dL (0.1-20.0) 10/13/20 14:45 Urine Sodium 10 mmol/L 10/13/20 14:45 Medications & Allergies - Medications Allergies/Adverse Reactions: Allergies No Known Allergies Allergy (Verified 09/21/20 21:00) Verified with , no known drug allergies. Home Medications: Home Medications Medication Instructions Recorded Confirmed Last Taken Type Albuterol Sulfate 60 mcg IH PRN 09/11/20 09/11/20 Unknown History Cholecalciferol (Vitamin D3) 25 tab PO DAILY 09/11/20 09/11/20 Unknown History Cozaar 25 tab PO DAILY 09/11/20 09/11/20 Unknown History HumaLOG 14 unit SQ AC 09/11/20 09/11/20 Unknown History Hydralazine HCl 50 tab PO TID 09/11/20 09/11/20 Unknown History Isosorbide Dinitrate 30 mg PO DAILY 09/11/20 09/11/20 Unknown History Lantus VIAL 54 units SQ HS 09/11/20 09/11/20 Unknown History Lasix 20 tab PO DAILY 09/11/20 09/11/20 Unknown History Nifedipine 30 tab PO DAILY 09/11/20 09/11/20 Unknown History Active Medications: Generic Name Dose Route Start Last Admin Trade Name Freq PRN Reason Stop Dose Admin Acetaminophen 650 mg 10/02/20 09:00 10/12/20 09:31 Acetaminophen 325 Mg/10.15 Ml Oral Liqd Unit Dose PO 650 mg Q4HR PRN Administration Non Cardiac Pain or Temp>100.5 Amiodarone HCl 200 mg 10/05/20 11:00 10/16/20 10:14 Amiodarone 200 Mg Tab PO 200 mg BID TAYLOR Administration Lipase/Protease/Amylase 1 each 09/09/20 09:40 10/16/20 08:34 Lipase 10,500/Protease 25,000/Amylase 43,750 (Units) Dr Armenta FEEDTUBE 1 each PRN PRN Administration For Clogged Feeding Tube Hydralazine HCl 50 mg 09/23/20 14:00 10/16/20 13:29 Hydralazine 25 Mg Tab PO 50 mg Q8HR TAYLOR Administration Cefepime HCl 2 gm in 100 mls @ 200 mls/hr 10/12/20 12:00 10/16/20 12:14 Cefepime/Ns 2 Gm/100 Ml IV 200 mls/hr Q24H TAYLOR Administration Protocol Insulin Glargine 36 units 10/11/20 12:00 10/16/20 10:14 Insulin Glargine 100 Units/Ml SUB-Q 36 units DAILY TAYLOR Administration Insulin Human Lispro 0 unit 09/12/20 12:00 10/16/20 12:34 Insulin Lispro 100 Unit/Ml SUB-Q 4 unit Q6HR TAYLOR Administration Protocol Lansoprazole 30 mg 10/13/20 10:00 10/16/20 10:13 Lansoprazole 30 Mg Araseli FEEDTUBE 30 mg DAILY TAYLOR Administration Levetiracetam 1,500 mg 09/28/20 10:00 10/16/20 10:13 Levetiracetam 500 Mg/5 Ml Oral Liqd PO 1,500 mg BID TAYLOR Administration Multivitamins 5 ml 09/09/20 12:00 10/16/20 10:14 Multivitamins 5 Ml Oral Liquid PO Not Given QDAY TAYLOR Ondansetron HCl 4 mg 09/07/20 17:55 09/19/20 04:00 Ondansetron 4 Mg/2 Ml Inj IV 4 mg Q8H PRN Administration Nausea And Vomiting Senna/Docusate Sodium 2 tab 09/20/20 11:00 Sennosides/Docusate Sodium 8.6/50 Mg Tab PO BID PRN Laxative Effect Simple Syrup 15 ml 09/09/20 09:40 09/17/20 17:43 Simple Syrup 15 Ml FEEDTUBE 15 ml PRN PRN Administration Hypoglycemia Simple Syrup 30 ml 09/09/20 09:40 Simple Syrup 15 Ml FEEDTUBE PRN PRN Hypoglycemia Sodium Bicarbonate 325 mg 09/09/20 09:40 10/16/20 08:36 Sodium Bicarbonate 325 Mg Tab FEEDTUBE 325 mg PRN PRN Administration For Clogged Feeding Tube Sodium Chloride 10 ml 09/07/20 22:00 10/16/20 10:14 Sodium Chloride 0.9% 10 Ml Flush Syringe IV 10 ml BID TAYLOR Administration Sodium Chloride 10 ml 09/07/20 17:55 Sodium Chloride 0.9% 10 Ml Flush Syringe IV PRN PRN LINE FLUSH Valproic Acid 1,000 mg 09/28/20 10:00 10/16/20 10:14 Valproic Acid 250 Mg/5 Ml Oral Liqd FEEDTUBE 1,000 mg BID TAYLOR Administration
[2020-10-17] MEDS: INSULIN LISPRO 100 UNIT/ML SUB-Q SCH ×3 (00:41→18:10)
[2020-10-17] MEDS: hydrALAZINE 25 MG TAB PO SCH ×3 (06:27→21:43)
[2020-10-17] MEDS: MULTIVITAMINS 5 ML ORAL LIQUID PO SCH (09:00)
[2020-10-17] MEDS: VALPROIC ACID 250 MG/5 ML ORAL LIQD FEEDTUBE SCH ×2 (09:01→21:41)
[2020-10-17] MEDS: LANSOPRAZOLE 30 MG SOLUTAB FEEDTUBE SCH (09:02)
[2020-10-17] MEDS: levETIRAcetam 500 MG/5 ML ORAL LIQD PO SCH ×2 (09:02→21:44)
[2020-10-17] MEDS: AMIODARONE 200 MG TAB PO SCH ×2 (09:02→21:42)
[2020-10-17] MEDS: INSULIN GLARGINE 100 UNITS/ML SUB-Q SCH (09:18)
[2020-10-17 09:30] LABS: Calcium 9.6 mg/dL (8.4-10.2)
--- NOTE | 2020-10-17 09:42 | Progress Note ---
Assessment and Plan Assessment and plan: S/p cardiopulmonary arrest Toxic metabolic encephalopathy +/-anoxic injury Acute hypoxic respiratory failure Acute kidney injury Seizure disorder Hyperkalemia COVID-19 pneumonia Sepsis Transaminitis Morbid obesity. 09/15/2020. MRI brain for further evaluation. Continue AEDs of valproic acid and Keppra. Continue hemodialysis per nephrology recommendations. Overall prognosis remains guarded and poor. 09/16/2020. ID recommends continue to monitor patient off of antibiotics. Fever most likely of central etiology. Patient with questionable seizures versus myoclonus from anoxic brain injury. Patient unable to undergo MRI due to body habitus. Continue AEDs per neurology recommendations. Inflammatory markers elevated. Patient was recently hospitalized for COVID-19 pneumonia at the [place] to being hospitalized [place]. Patient not a candidate for remdesivir due to hepatic and renal failure. Viral hepatitis panel negative. Overall prognosis extremely poor. 09/17/2020. Fevers have resolved over the past 48 hours. Continue to monitor off antibiotics per ID recommendations. Patient with questionable seizures versus myoclonus from anoxic brain injury. Patient unable to undergo MRI due to body habitus. EEG is nonspecific but given CT of head findings consistent with anoxic encephalopathy, brain injury. Continue AEDs per neurology recommendations. Inflammatory markers elevated. Patient was recently hospitalized for COVID-19 pneumonia at the [place] being hospitalized [place]. Patient not a candidate for remdesivir due to hepatic and renal failure. Viral hepatitis panel negative. Patient is s/p emergent HD on Friday (hyperK) and Friday - 09/08. Patient also S/p HD 09/15. Continue hemodialysis per nephrology recommendations. Patient currently on AC/PRVC mode ventilation with rate of 30, tidal volume 475, FiO2 30% and PEEP of 6. As stated in neuro note, overall prognosis is very poor. 09/18/2020. Fevers have resolved over the past 72 hours. Continue to monitor off antibiotics per ID recommendations. Leukocytosis persistent for the past 4 days. Patient with questionable seizures/myoclonus from anoxic brain injury. Patient unable to undergo MRI due to body habitus. EEG is nonspecific but given CT of head findings consistent with anoxic encephalopathy, brain injury. Continue AEDs per neurology recommendations. Inflammatory markers elevated. Patient was recently hospitalized for COVID-19 pneumonia [place]. Patient not a candidate for remdesivir due to hepatic and renal failure. Viral hepatitis panel negative. Patient currently on AC/PRVC mode ventilation with rate of 30, tidal volume 475, FiO2 30% and PEEP of 6. Overall prognosis remains guarded/poor. 07/19/2021 Fevers have resolved over the past 4 days. Continue to monitor off antibiotics per ID recommendations. Leukocytosis persistent for the past 4 days. Patient with questionable seizures/myoclonus from anoxic brain injury. Patient unable to undergo MRI due to body habitus. EEG is nonspecific but given CT of head findings consistent with anoxic encephalopathy, brain injury. Continue AEDs per neurology recommendations. Inflammatory markers elevated. Patient was recently hospitalized for COVID-19 pneumonia [place] the [place] being hospitalized [place]. Patient not a candidate for remdesivir due to hepatic and renal failure. Viral hepatitis panel negative. Patient currently on AC/PRVC mode ventilation with rate of 30, tidal volume 475, FiO2 30% and PEEP of 6. Overall prognosis remains guarded/poor. 09/20/2020 -Surgery consulted for PEG and trach, will continue to follow. 09/21/2020; patient will have PEG and trach by Dr. hayes today. Prognosis is poor. Continue with current management. Network Control Operators Supervisor is following for vent management. 09/22/2020; patient had PEG and trach yesterday. 09/23/2020; continue PEG Tube Feeding. 07/24/2021; continue PEG tube feeding, patient is on Keppra, lorazepam and phenytoin per neurology recommendation. Patient is on hemodialysis and nephrology is following. Management of mechanical ventilation for CCM. 09/25/2020. Continue PEG tube feeding, patient is on Keppra, lorazepam and phenytoin per neurology recommendation. Patient is on hemodialysis and nephrology is following. Management of mechanical ventilation for CCM. Continue PSV/CPAP 07/16. Continue tracheostomy care, secretion control and airway management. 09/26/2020. Patient has tolerated PSV for approximately 48 hours. I discussed with pulmonary possibility of T-piece today. Continue tracheostomy care, se cretion control and airway management. If patient tolerates T-piece trials, patient will be transferred to the floor. Continue AEDs of Keppra and phenytoin as well as Ativan as needed per neurology recommendations. Continue hemodialysis per nephrology. Continue TF with aspiration precautions. 09/27/2020. Patient continues to tolerate PSV 12/6 at 30% FiO2. T-piece trials per pulmonary. Continue tracheostomy care, secretion control and airway management. Continue AEDs of Keppra and phenytoin as well as Ativan as needed per neurology recommendations. Continue hemodialysis per nephrology. Continue TF with aspiration precautions. 09/28/2020. Patient for T-piece trials per pulmonary. Continue hemodialysis per nephrology. Continue tracheostomy care, secretion control and airway manageme nt. Continue AEDs of Keppra and phenytoin as well as Ativan as needed per neurology recommendations. Continue TF with aspiration precautions. 09/29/2020, continue T-piece trials per pulmonary. Continue hemodialysis per nephrology. Continue strict I/O's and labs daily. Monitor for renal recovery. 09/30/2020. Continue T-piece trials per pulmonary recommendations. Continue tracheostomy care, secretion control and airway management. Continue hemodialysis per nephrology. Tight glycemic control. Continue TF with aspiration precautions. 10/01/2020. Patient with T-piece trials and tolerating. Wean to trach collar per pulmonary. Continue tracheostomy care, secretion control and airway paola gement. Continue hemodialysis per nephrology. Tight glycemic control. Continue TF with aspiration precautions. Case management consultation for placement 10/02/20. Continue T-piece trials per pulmonary recommendations. Continue tracheostomy care, secretion control and airway management. Continue hemodialysis per nephrology. Tight glycemic control. Continue TF with aspiration precautions. 10/03/2020. Continue T-piece trials per pulmonology. Continue tracheostomy care, secretion control and airway management. Continue modalities per nephrology. Discharge planning underway. Needs placement to SNF versus hospice. 10/04/2020. Patient remained febrile with temperature 101 F. Ordered blood culture, chest x-ray, urinalysis. Plan to start antibiotics after blood cultures been obtained. Patient remains hemodynamically stable. Plan to discharge to SNF versus inpatient hospice on the way. 10/05/2020. Started on antibiotics yesterday. Awaiting blood culture. He developed atrial fibrillation with RVR and was placed on amiodaron see awaiting placement. E drip with subsequent conversion to SR. Now on amiodarone PO. Discussed with patients - she would like him to go inpatient hospice or a termite inspector care facility. As per CM, [facility] not approving LTC placement at this time. As is still undecided about hospice, inpatient hospice is not accepting h im at this time. has placed a referral to a SNF with inpatient dialysis. Awaiting response from the SNF. 10/06/2020. Hb drop noted. Not on therapeutic anticoagulation [atrial fibrillation] due to duration of atrial fibrillation [lasted less than 2 hours] and also drop in hemoglobin. Continue to monitor hemoglobin. Repeat labs ordered today. Vitals stable. Discussed with patient's yesterday 10/07. HR is controlled. Pending placement. As per CM notes, patient denied acceptance at a [facility] as he has [facility] insurance. Will discuss with CM to know other options are available. 10/08. Vitals stable. Will discuss discharge plan with spouse today as it looks like only option left is inpatient hospice. 10/09. Vitals stable. Will discuss discharge plan with spouse today as it looks like only option left is inpatient hospice 10/10. Discussed with patient spouse. Patient spouse asking to see patient in the hospital. medical manager on board. Patient has not had hemodialysis since 10/05. Creatinine stable at 4.6. Nephrology on board 10/11. DC planning underway. Patient spouse to see patient in hospital today. Vitals remained stable. Creatinine stable as well. Increase Lantus to 36 units daily. 10/12. Patient started having fever yesterday-temp 102 Fahrenheit. Stat blood cultures were drawn today, urinalysis, urine culture, chest x-ray, procalcitonin ordered. Start on empirical antibiotics for possible hospital acquired pneumonia. ID consulted. H&H shows hemoglobin 4.6 patient will receive 2 units PRBCs.. Check H&H after admission. Check stool guaiac. 10/13. Patient with new sepsis. Follow-up blood, sputum and urine cultures. Continue empiric antibiotics of cefepime and vancomycin. Chest x-ray appears to be unchanged. Urinalysis revealed pyuria. H&H is stabilized from PRBCs. Continue to follow H&H 10/14. Urine culture reveals yeast. Blood cultures thus far negative. Continue empiric antibiotics of cefepime and vancomycin per ID recommendations. Nephro courtney had long discussion regarding initiation of hemodialysis. Pumper Gauger conveyed to the spouse Yoko yesterday that prognosis is overall not good and his mortality risk is very high. Nephrology to potentially initiate hemodialysis today. I had a follow-up discussion with the spouse Yoko and reiterated poor prognosis. All questions answered. 10/15. Continue empiric antibiotics of cefepime and vancomycin per ID recommendations. Prognosis remains poor. Initiation of hemodialysis per nephrology recommendations. 10/16. PEG tube currently not flushing per nursing. GI consultation for PEG tube dysfunction. Repeat blood cultures have been negative x72 hours. Continue IV antibiotics per ID recommendations. Patient with Acute kidney injury currently nonoliguric likely felt to be due to acute tubular necrosis which has been felt to be multifactorial. Nephrology reports no urgent or emergent indication for renal replacement therapy and that the wants to proceed with renal replacement therapy. Nephrology informed her that patient is high risk for any adverse outcome including mortality risk during dialysis. Overall poor prognosis. 10/17/2020; patient is on PEG tube feeding and functional. Repeat blood cultures were negative. Patient does not have any fever overnight. Patient finished 5 days of IV cefepime and vancomycin yesterday. Acute renal failure followed by nephrology and said patient not a candidate for DELIVERY CONSULTANT. And he is a poor candidate for dialysis. Will follow with nephrology for further recommendation. Overall prognosis is very poor. I order CT head to assess if brain edema is resolved, and to assess for anoxic brain injury. I put a consult for neurology to assess his prognosis and discussed with the family from neurology point of view. History Interval history: Patient was seen and evaluated this morning Patient is noncommunicative Patient has PEG and Trach Hospitalist Physical - Physical exam Narrative exam: On mechanical ventilation. Patient has PEG and a trach The patient appeared well nourished and normally developed. Vital signs as documented. Head exam is unremarkable. No scleral icterus . Neck is without jugular venous distension, thyromegaly, or carotid bruits. Lungs are clear to auscultation. Cardiac exam reveals regular rate and Rhythm. Abdominal exam reveals normal bowel sounds, nontender, no organomegaly. Extremities are nonedematous and both femoral and pedal pulses are normal. DRAFTER ASSISTANT: Patient is noncommunicative - Constitutional Vitals: Temp Pulse Resp BP Pulse Ox 97.8 F 74 25 H 132/53 93 10/17/20 08:54 10/17/20 08:54 10/17/20 08:54 10/17/20 08:54 10/17/20 08:54 General appearance: Present: other (On mechanical ventilation) HEART Score - HEART Score Troponin: Troponin T 0.076 ng/mL (0.00-0.029) H 09/07/20 14:00 Results - Labs CBC & Chem 7: 10/16/20 07:13 10/17/20 08:19 Labs: Laboratory Last Values WBC 7.8 K/mm3 (4.5-11.0) 10/16/20 07:13 RBC 2.87 M/mm3 (3.65-5.03) L 10/16/20 07:13 Hgb 8.4 gm/dl (11.8-15.2) L 10/16/20 07:13 Hct 25.3 % (35.5-45.6) L 10/16/20 07:13 MCV 88 fl (84-94) 10/16/20 07:13 MCH 29 pg (28-32) 10/16/20 07:13 MCHC 33 % (32-34) 10/16/20 07:13 RDW 18.7 % (13.2-15.2) H 10/16/20 07:13 Plt Count 222 K/mm3 (140-440) 10/16/20 07:13 Lymph % (Auto) 21.2 % (13.4-35.0) 10/16/20 07:13 Stevens % (Auto) 14.4 % (0.0-7.3) H 10/16/20 07:13 Eos % (Auto) 1.9 % (0.0-4.3) 10/16/20 07:13 Baso % (Auto) 0.3 % (0.0-1.8) 10/16/20 07:13 Lymph # (Auto) 1.6 K/mm3 (1.2-5.4) 10/16/20 07:13 Stevens # (Auto) 1.1 K/mm3 (0.0-0.8) H 10/16/20 07:13 Eos # (Auto) 0.2 K/mm3 (0.0-0.4) 10/16/20 07:13 Baso # (Auto) 0.0 K/mm3 (0.0-0.1) 10/16/20 07:13 Add Manual Diff Complete 10/12/20 08:36 Total Counted 100 10/12/20 08:36 Seg Neutrophils % 62.2 % (40.0-70.0) 10/16/20 07:13 Seg Neuts % (Manual) 75.0 % (40.0-70.0) H 10/12/20 08:36 Band Neutrophils % 8.0 % 09/30/20 06:57 Lymphocytes % (Manual) 17.0 % (13.4-35.0) 10/12/20 08:36 Monocytes % (Manual) 5.0 % (0.0-7.3) 10/12/20 08:36 Eosinophils % (Manual) 2.0 % (0.0-4.3) 10/12/20 08:36 Basophils % (Manual) 1.0 % (0.0-1.8) 10/12/20 08:36 Metamyelocytes % 2.0 % 09/08/20 Unknown Promyelocytes % 0 % 10/04/20 10:32 Nucleated RBC % Not Reportable 10/12/20 08:36 Seg Neutrophils # 4.8 K/mm3 (1.8-7.7) 10/16/20 07:13 Seg Neutrophils # Man 10.6 K/mm3 (1.8-7.7) H 10/12/20 08:36 Band Neutrophils # 0.0 K/mm3 10/12/20 08:36 Lymphocytes # (Manual) 2.4 K/mm3 (1.2-5.4) 10/12/20 08:36 Abs React Lymphs (Man) 0.0 K/mm3 10/12/20 08:36 Monocytes # (Manual) 0.7 K/mm3 (0.0-0.8) 10/12/20 08:36 Eosinophils # (Manual) 0.3 K/mm3 (0.0-0.4) 10/12/20 08:36 Basophils # (Manual) 0.1 K/mm3 (0.0-0.1) 10/12/20 08:36 Metamyelocytes # 0.0 K/mm3 10/12/20 08:36 Myelocytes # 0.0 K/mm3 10/12/20 08:36 Promyelocytes # 0.0 K/mm3 10/12/20 08:36 Blast Cells # 0.0 K/mm3 10/12/20 08:36 WBC Morphology Not Reportable 10/12/20 08:36 Hypersegmented Neuts Not Reportable 10/12/20 08:36 Hyposegmented Neuts Not Reportable 10/12/20 08:36 Hypogranular Neuts Not Reportable 10/12/20 08:36 Smudge Cells Not Reportable 10/12/20 08:36 Toxic Granulation Not Reportable 10/12/20 08:36 Toxic Vacuolation Not Reportable 10/12/20 08:36 Dohle Bodies Not Reportable 10/12/20 08:36 Pelger-Huet Anomaly Not Reportable 10/12/20 08:36 Justus Rods Not Reportable 10/12/20 08:36 Platelet Estimate Consistent w auto 10/12/20 08:36 Clumped Platelets Not Reportable 10/12/20 08:36 Plt Clumps, EDTA Not Reportable 10/12/20 08:36 Large Platelets Not Reportable 10/12/20 08:36 Giant Platelets Not Reportable 10/12/20 08:36 Platelet Satelliting Not Reportable 10/12/20 08:36 Plt Morphology Comment Not Reportable 10/12/20 08:36 RBC Morphology Not Reportable 10/12/20 08:36 Dimorphic RBCs Not Reportable 10/12/20 08:36 Polychromasia Not Reportable 10/12/20 08:36 Hypochromasia 1+ 10/12/20 08:36 Poikilocytosis Not Reportable 10/12/20 08:36 Anisocytosis Not Reportable 10/12/20 08:36 Microcytosis Not Reportable 10/12/20 08:36 Macrocytosis Not Reportable 10/12/20 08:36 Spherocytes Not Reportable 10/12/20 08:36 Pappenheimer Bodies Not Reportable 10/12/20 08:36 Sickle Cells Not Reportable 10/12/20 08:36 Target Cells Not Reportable 10/12/20 08:36 Tear Drop Cells Not Reportable 10/12/20 08:36 Ovalocytes Not Reportable 10/12/20 08:36 Helmet Cells Not Reportable 10/12/20 08:36 [place] Bodies Not Reportable 10/12/20 08:36 [place] Rings Not Reportable 10/12/20 08:36 [place] Cells Not Reportable 10/12/20 08:36 Bite Cells Not Reportable 10/12/20 08:36 Crenated Cell Not Reportable 10/12/20 08:36 Elliptocytes Not Reportable 10/12/20 08:36 Acanthocytes (Spur) Not Reportable 10/12/20 08:36 Rouleaux Not Reportable 10/12/20 08:36 Hemoglobin C Crystals Not Reportable 10/12/20 08:36 Schistocytes Not Reportable 10/12/20 08:36 Malaria parasites Not Reportable 10/12/20 08:36 [place] Bodies Not Reportable 10/12/20 08:36 Hem Pathologist Commnt No 10/12/20 08:36 PT 16.1 Sec. (12.2-14.9) H 09/12/20 04:00 INR 1.31 (0.87-1.13) H 09/12/20 04:00 APTT 32.4 Sec. (24.2-36.6) 09/09/20 10:00 D-Dimer 8315.85 ng/mlDDU (0-234) H 09/07/20 14:00 ABG pH 7.468 (7.320-7.450) H 10/02/20 10:16 POC ABG pCO2 37.1 mmHg (32.0-48.0) 10/02/20 10:16 ABG pCO2 33.4 mm Hg 09/11/20 05:40 POC ABG pO2 72.9 mmHg (83-108) L 10/02/20 10:16 ABG pO2 112.1 mm Hg (80.0-90.0) H 09/11/20 05:40 POC ABG HCO3 26.3 10/02/20 10:16 ABG HCO3 28.1 mmol/L (20.0-26.0) H 09/11/20 05:40 ABG O2 Saturation 98.4 % (95.0-99.0) 09/11/20 05:40 ABG O2 Content 11.6 (0.0-44) 09/11/20 05:40 POC ABG Base Excess 2.6 10/02/20 10:16 ABG Base Excess 5.4 mmol/L (-2.0-3.0) H 09/11/20 05:40 ABG Hemoglobin 10.1 (12.0-17.5) L 10/02/20 10:16 ABG Oxyhemoglobin 93.1 (94-98) L 10/02/20 10:16 ABG Carboxyhemoglobin 1.2 % (0.0-5.0) 09/11/20 05:40 ABG Methemoglobin 0.3 (0.0-1.5) 10/02/20 10:16 ABG Sodium 138.5 mmol/L (136.0-145.0) 10/02/20 10:16 ABG Potassium 3.9 mmol/L (3.40-4.50) 10/02/20 10:16 ABG Chloride 108.0 mmol/L (98-107) H 10/02/20 10:16 ABG Glucose 289 mg/dL (65-95) H 10/02/20 10:16 Oxyhemoglobin 96.8 % (95.0-99.0) 09/11/20 05:40 Carboxyhemoglobin 0.8 (0.5-1.5) 10/02/20 10:16 FiO2 35 10/02/20 10:16 Sodium 133 mmol/L (137-145) L 10/17/20 08:19 Potassium 4.3 mmol/L (3.6-5.0) 10/17/20 08:19 Chloride 96.8 mmol/L (98-107) L 10/17/20 08:19 Carbon Dioxide 28 mmol/L (22-30) 10/17/20 08:19 Anion Gap 13 mmol/L 10/17/20 08:19 BUN 105 mg/dL (9-20) H 10/17/20 08:19 Creatinine 4.8 mg/dL (0.8-1.3) H 10/17/20 08:19 Estimated GFR 15 ml/min 10/17/20 08:19 BUN/Creatinine Ratio 22 % 10/17/20 08:19 Glucose 220 mg/dL (75-100) H 10/17/20 08:19 POC Glucose 209 mg/dL (70-105) H 10/17/20 09:12 Osmolality 353 Mosm/kg 10/13/20 09:29 Lactic Acid 2.90 mmol/L (0.7-2.0) H* 09/17/20 13:52 Uric Acid 8.6 mg/dL (3.5-7.6) H 10/13/20 09:29 Calcium 9.6 mg/dL (8.4-10.2) 10/17/20 08:19 Phosphorus 8.00 mg/dL (2.5-4.5) H 09/08/20 12:02 Magnesium 1.80 mg/dL (1.7-2.3) 09/08/20 12:02 Ferritin > 2000.0 ng/mL (30.0-300.0) H 09/07/20 14:00 Total Bilirubin 0.30 mg/dL (0.1-1.2) 10/06/20 10:12 Direct Bilirubin 0.5 mg/dL (0-0.2) H 09/08/20 05:00 Indirect Bilirubin 0.5 mg/dL 09/08/20 05:00 AST 52 units/L (5-40) H 10/06/20 10:12 ALT 28 units/L (7-56) 10/06/20 10:12 Alkaline Phosphatase 94 units/L (35-129) 10/06/20 10:12 Ammonia 50.0 umol/L (25-60) 09/07/20 14:00 Lactate Dehydrogenase 882 units/L (91-180) H 09/07/20 14:00 Total Creatine Kinase 477 units/L (55-170) H 09/07/20 14:00 Troponin T 0.076 ng/mL (0.00-0.029) H 09/07/20 14:00 C-Reactive Protein 1.10 mg/dL (0.00-1.30) 09/07/20 14:00 Total Protein 8.4 g/dL (6.3-8.2) H 10/06/20 10:12 Albumin 2.3 g/dL (3.9-5) L 10/06/20 10:12 Albumin/Globulin Ratio 0.4 % 10/06/20 10:12 Triglycerides 220 mg/dL (2-149) H 09/12/20 Unknown Procalcitonin 2.03 ng/mL (<0.15) 10/12/20 08:19 TSH 2.290 mlU/mL (0.270-4.200) 09/07/20 14:00 Arterial Blood Glucose 289 mg/dL (65-95) H 10/02/20 10:16 Arterial Blood Ionized Calcium 5.2 mg/dL (4.6-5.3) 10/02/20 10:16 Urine Color Yellow (Yellow) 10/13/20 14:45 Urine Turbidity Slightly-cloudy (Clear) 10/13/20 14:45 Urine pH 5.0 (5.0-7.0) 10/13/20 14:45 Ur Specific [place] 1.014 (1.003-1.030) 10/13/20 14:45 Urine Protein 100 mg/dl mg/dL (Negative) 10/13/20 14:45 Urine Glucose (UA) 50 mg/dL (Negative) 10/13/20 14:45 Urine Ketones Neg mg/dL (Negative) 10/13/20 14:45 Urine Blood Mod (Negative) 10/13/20 14:45 Urine Nitrite Neg (Negative) 10/13/20 14:45 Urine Bilirubin Neg (Negative) 10/13/20 14:45 Urine Urobilinogen < 2.0 mg/dL (<2.0) 10/13/20 14:45 Ur Leukocyte Esterase Neg (Negative) 10/13/20 14:45 Urine WBC (Auto) 6.0 /HPF (0.0-6.0) 10/13/20 14:45 Urine RBC (Auto) 29.0 /HPF (0.0-6.0) 10/13/20 14:45 U Epithel Cells (Auto) 1.0 /HPF (0-13.0) 10/13/20 14:45 Urine Bacteria (Auto) 2+ /HPF (Negative) 10/13/20 14:45 Urine WBC Clumps 3+ /HPF 10/12/20 10:25 Hyaline Casts 1 /LPF 10/05/20 09:15 Urine Mucus Few /HPF 10/13/20 14:45 Urine Yeast (Budding) 3+ /HPF 10/13/20 14:45 Urine Sperm Few /HPF (HEALTHCARE PROF) 10/13/20 14:45 Urine Creatinine < 4.2 mg/dL (0.1-20.0) 10/13/20 14:45 Urine Sodium 10 mmol/L 10/13/20 14:45 Random Vancomycin 12.4 ug/mL (0-40.0) 10/15/20 06:52 Salicylates < 0.3 mg/dL (2.8-20.0) L 09/07/20 14:00 Acetaminophen 5.0 ug/mL (10.0-30.0) L 09/07/20 14:00 Valproic Acid 58.9 ug/mL (50-100) 10/04/20 04:55 Plasma/Serum Alcohol < 0.01 % (0-0.07) 09/07/20 14:00 Coronavirus (PCR) Negative (Negative) 10/03/20 10:01 Hepatitis A IgM Ab Non-reactive (NonReactive) 09/07/20 14:00 Hep Bs Antigen Non-reactive (Negative) 09/07/20 14:00 Hep B Core IgM Ab Non-reactive (NonReactive) 09/07/20 14:00 Hepatitis C Antibody Non-reactive (NonReactive) 09/07/20 14:00 HIV 1&2 Antibody Rapid Non react (Non React) 09/07/20 14:34 HIV P24 Antigen Non react (Non React) 09/07/20 14:34 Blood Type O POSITIVE 10/12/20 11:04 Antibody Screen Negative 10/12/20 11:04 Crossmatch See Detail 10/12/20 11:04 Microbiology: Microbiology 10/12/20 08:19 Peripheral/Venous Blood Culture - Preliminary NO GROWTH AFTER 4 DAYS 10/12/20 08:48 Peripheral/Venous Blood Culture - Preliminary NO GROWTH AFTER 4 DAYS Mae/IV: Voiding Method Condom Catheter IV Catheter Type [Right Triple Lumen Cath Femoral] IV Catheter Type [Left Peripheral IV Antecubital] IV Catheter Type [Left Hand] Peripheral IV IV Catheter Type [Right Peripheral IV Antecubital] Active Medications - Current Medications Current Medications: Generic Name Dose Route Start Last Admin Trade Name Freq PRN Reason Stop Dose Admin Acetaminophen 650 mg 10/02/20 09:00 10/12/20 09:31 Acetaminophen 325 Mg/10.15 Ml Oral Liqd Unit Dose PO 650 mg Q4HR PRN Administration Non Cardiac Pain or Temp>100.5 Amiodarone HCl 200 mg 10/05/20 11:00 10/17/20 09:02 Amiodarone 200 Mg Tab PO 200 mg BID TAYLOR Administration Lipase/Protease/Amylase 1 each 09/09/20 09:40 10/16/20 08:34 Lipase 10,500/Protease 25,000/Amylase 43,750 (Units) Dr Armenta FEEDTUBE 1 each PRN PRN Administration For Clogged Feeding Tube Hydralazine HCl 50 mg 09/23/20 14:00 10/17/20 06:27 Hydralazine 25 Mg Tab PO 50 mg Q8HR TAYLOR Administration Insulin Glargine 36 units 10/11/20 12:00 10/17/20 09:18 Insulin Glargine 100 Units/Ml SUB-Q 36 units DAILY TAYLOR Administration Insulin Human Lispro 0 unit 09/12/20 12:00 10/17/20 00:41 Insulin Lispro 100 Unit/Ml SUB-Q 3 unit Q6HR TAYLOR Administration Protocol Lansoprazole 30 mg 10/13/20 10:00 10/17/20 09:02 Lansoprazole 30 Mg Solutab FEEDTUBE 30 mg DAILY TAYLOR Administration Levetiracetam 1,500 mg 09/28/20 10:00 10/17/20 09:02 Levetiracetam 500 Mg/5 Ml Oral Liqd PO 1,500 mg BID TAYLOR Administration Multivitamins 5 ml 09/09/20 12:00 10/17/20 09:00 Multivitamins 5 Ml Oral Liquid PO Not Given QDAY TAYLOR Ondansetron HCl 4 mg 09/07/20 17:55 09/19/20 04:00 Ondansetron 4 Mg/2 Ml Inj IV 4 mg Q8H PRN Administration Nausea And Vomiting Senna/Docusate Sodium 2 tab 09/20/20 11:00 Sennosides/Docusate Sodium 8.6/50 Mg Tab PO BID PRN Laxative Effect Simple Syrup 15 ml 09/09/20 09:40 09/17/20 17:43 Simple Syrup 15 Ml FEEDTUBE 15 ml PRN PRN Administration Hypoglycemia Simple Syrup 30 ml 09/09/20 09:40 Simple Syrup 15 Ml FEEDTUBE PRN PRN Hypoglycemia Sodium Bicarbonate 325 mg 09/09/20 09:40 10/16/20 08:36 Sodium Bicarbonate 325 Mg Tab FEEDTUBE 325 mg PRN PRN Administration For Clogged Feeding Tube Sodium Chloride 10 ml 09/07/20 22:00 10/17/20 09:17 Sodium Chloride 0.9% 10 Ml Flush Syringe IV 10 ml BID TAYLOR Administration Sodium Chloride 10 ml 09/07/20 17:55 Sodium Chloride 0.9% 10 Ml Flush Syringe IV PRN PRN LINE FLUSH Valproic Acid 1,000 mg 09/28/20 10:00 10/17/20 09:01 Valproic Acid 250 Mg/5 Ml Oral Liqd FEEDTUBE 1,000 mg BID TAYLOR Administration Nutrition/Malnutrition Assess - Dietary Evaluation Nutrition/Malnutrition Findings: Nutrition Notes Start: 09/08/20 12:01 Freq: Status: Active Protocol: Document 10/16/20 15:09 CW (Rec: 10/16/20 15:13 CW [id number]) Nutrition Notes Initial or Follow up Reassessment Current Diagnosis Acute Kidney Injury, Respiratory Failure Other Pertinent Diagnosis cardiac arrest, COVID (+), metabolic encephalopathy, pneu Current Diet Nepro 1.8 at 45 mL/hr (goal rate) Labs/Tests Na 136 BUN 101 Cr 4.9 BG 238 Pertinent Medications Humalog 4 units Lantus 36 units Height 6 ft Weight 157.1 kg [place] Body Weight (kg) 80.90 BMI 47.0 Weight change and time frame Weight change noted, pt no longer on HD Weight Status Morbidly Obese Subjective/Other Information F/U for TF stability. Nepro 1. 8 running at 45 ml per hour. TF is being well tolerated. TF temporarily on hold d/t clogging but has since been unclogged and is running again . TF not meeting 75% of protein needs d/t poor renal functioning w/out HD Percent of energy/protein needs met: 100%/64% Burn Absent Trauma Absent GI Symptoms None Difficulty In Swallowing Food Allergy No Skin Integrity/Comment pressure ulcer to lips Current % PO Negligible Minimum of two criteria No Fluid Accumulation Mild (non-severe) #3 Nutrition Diagnosis Increased nutrient needs ( specify in comment below) Comments: protein Diagnosis Progress(for reassessment Continues documentation) #1 Nutrition Diagnosis Inadequate oral intake Diagnosis Progress(for reassessment Continues documentation) Is patient on ventilator? No Is Patient Ambulatory and/or Out of Bed No REE-([facility]-confined to bed) 2883.060 Kcal/Kg value to use for calculation 12 Approximate Energy Requirements Using 1885 kcal/Kg Calculation Used for Recommendations Kcal/kg Additional Notes PRO needs: 147 -177g (1.25-1.5 g/kg AdBW 118kg) Fluid needs: 1 ml/kcal or per MD Nutrition Intervention Change Diet Order: TF Nutrition Support: Nepro at 45ml/hr Flush with 200mL q4h per MD Kcal 1,944 Protein (gm) 87 Fluid (mL) 785 Goal #1 Meet kcal and protein needs as best as possible via TF Goal #2 Wound healing Anticipated Discharge Needs: Continous Nepro TF at 45 ml/h Follow-Up By: 10/19/20 Additional Comments F/U Stable TF
--- NOTE | 2020-10-17 12:37 | Progress Note ---
Assessment and Plan Assessment and plan #Acute kidney injury on chronic kidney disease, baseline creatinine around 1.8, briefly on iHD, currently nonoliguric likely felt to be due to acute tubular necrosis (multifactorial). No emergent indication for renal replacement therapy. Added free water flushes. Elevated BUN likely due to tube feeds. He is a poor candidate for renal replacement therapy. Maintain intake and output logs, avoid any nephrotoxic medication Anemia with renal failure, s/p erythropoietin Keep MAP > 65 Renally dose medications - antibiotics and antiepileptics #Out of hospital cardiac arrest #Anoxic encephalopathy, s/p trach and PEG. Recommend repeat CT head and neurology evaluation. #Bilateral pneumonia due to Covid infection - ID following, s/p trach Subjective Date of service: 10/17/20 Principal diagnosis: Abnormal LFTs, s/p cardiac arrest, acute kidney injury with ATN Interval history: No change in mental status Trached Patient was seen for his renal issues Nursing, interdisciplinary and consult notes were reviewed Vitals, input and output, medications and labs were reviewed Objective - Exam Narrative Exam: General: No acute distress HEENT: Oral mucosa moist Neck: Supple, no JVD Chest: Trached. Heart: RRR, S1 and S2, no pericardial rub Abdomen: Soft, nontender, no renal bruit Extremity: No peripheral cyanosis, edema Neurological: Unresponsive Dermatology: No skin rash Psych: No agitation Musculoskeletal: No joint effusion - Vital Signs Vital signs: Vital Signs - 12hr 10/17/20 10/17/20 10/17/20 05:16 05:30 06:27 Temperature 98.0 F Pulse Rate 71 71 Pulse Rate [ Left Radial] Pulse Rate [ Right Radial] Respiratory 18 Rate Blood Pressure 153/75 153/75 O2 Sat by Pulse 97 Oximetry O2 Sat by Pulse 98 Oximetry [ Assessment] 10/17/20 10/17/20 10/17/20 08:54 10:00 11:00 Temperature 97.8 F Pulse Rate 74 81 Pulse Rate [ 71 Left Radial] Pulse Rate [ 71 Right Radial] Respiratory 25 H 17 Rate Blood Pressure 132/53 O2 Sat by Pulse 93 94 98 Oximetry O2 Sat by Pulse 99 Oximetry [ Assessment] 10/17/20 11:31 Temperature 98.2 F Pulse Rate 72 Pulse Rate [ Left Radial] Pulse Rate [ Right Radial] Respiratory 18 Rate Blood Pressure 145/61 O2 Sat by Pulse 93 Oximetry O2 Sat by Pulse Oximetry [ Assessment] - Lab 03/08/21 07:13 10/17/20 08:19 Most recent lab results ABG pH 7.468 (7.320-7.450) H 10/02/20 10:16 ABG pCO2 33.4 mm Hg 09/11/20 05:40 ABG pO2 112.1 mm Hg (80.0-90.0) H 09/11/20 05:40 ABG HCO3 28.1 mmol/L (20.0-26.0) H 09/11/20 05:40 ABG O2 Saturation 98.4 % (95.0-99.0) 09/11/20 05:40 Calcium 9.6 mg/dL (8.4-10.2) 10/17/20 08:19 Phosphorus 8.00 mg/dL (2.5-4.5) H 09/08/20 12:02 Magnesium 1.80 mg/dL (1.7-2.3) 09/08/20 12:02 Urine Creatinine < 4.2 mg/dL (0.1-20.0) 10/13/20 14:45 Urine Sodium 10 mmol/L 10/13/20 14:45 Medications & Allergies - Medications Allergies/Adverse Reactions: Allergies No Known Allergies Allergy (Verified 09/21/20 21:00) Verified with , no known drug allergies. Home Medications: Home Medications Medication Instructions Recorded Confirmed Last Taken Type Albuterol Sulfate 60 mcg IH PRN 09/11/20 09/11/20 Unknown History Cholecalciferol (Vitamin D3) 25 tab PO DAILY 09/11/20 09/11/20 Unknown History Cozaar 25 tab PO DAILY 09/11/20 09/11/20 Unknown History HumaLOG 14 unit SQ AC 09/11/20 09/11/20 Unknown History Hydralazine HCl 50 tab PO TID 09/11/20 09/11/20 Unknown History Isosorbide Dinitrate 30 mg PO DAILY 09/11/20 09/11/20 Unknown History Lantus VIAL 54 units SQ HS 09/11/20 09/11/20 Unknown History Lasix 20 tab PO DAILY 09/11/20 09/11/20 Unknown History Nifedipine 30 tab PO DAILY 09/11/20 09/11/20 Unknown History Active Medications: Generic Name Dose Route Start Last Admin Trade Name Freq PRN Reason Stop Dose Admin Acetaminophen 650 mg 10/02/20 09:00 10/12/20 09:31 Acetaminophen 325 Mg/10.15 Ml Oral Liqd Unit Dose PO 650 mg Q4HR PRN Administration Non Cardiac Pain or Temp>100.5 Amiodarone HCl 200 mg 10/05/20 11:00 10/17/20 09:02 Amiodarone 200 Mg Tab PO 200 mg BID TAYLOR Administration Lipase/Protease/Amylase 1 each 09/09/20 09:40 10/16/20 08:34 Lipase 10,500/Protease 25,000/Amylase 43,750 (Units) Dr Armenta FEEDTUBE 1 each PRN PRN Administration For Clogged Feeding Tube Hydralazine HCl 50 mg 09/23/20 14:00 10/17/20 06:27 Hydralazine 25 Mg Tab PO 50 mg Q8HR TAYLOR Administration Insulin Glargine 36 units 10/11/20 12:00 10/17/20 09:18 Insulin Glargine 100 Units/Ml SUB-Q 36 units DAILY TAYLOR Administration Insulin Human Lispro 0 unit 09/12/20 12:00 10/17/20 11:51 Insulin Lispro 100 Unit/Ml SUB-Q 4 unit Q6HR TAYLOR Administration Protocol Lansoprazole 30 mg 10/13/20 10:00 10/17/20 09:02 Lansoprazole 30 Mg Solutab FEEDTUBE 30 mg DAILY TAYLOR Administration Levetiracetam 1,500 mg 09/28/20 10:00 10/17/20 09:02 Levetiracetam 500 Mg/5 Ml Oral Liqd PO 1,500 mg BID TAYLOR Administration Multivitamins 5 ml 09/09/20 12:00 10/17/20 09:00 Multivitamins 5 Ml Oral Liquid PO Not Given QDAY TAYLOR Ondansetron HCl 4 mg 09/07/20 17:55 09/19/20 04:00 Ondansetron 4 Mg/2 Ml Inj IV 4 mg Q8H PRN Administration Nausea And Vomiting Senna/Docusate Sodium 2 tab 09/20/20 11:00 Sennosides/Docusate Sodium 8.6/50 Mg Tab PO BID PRN Laxative Effect Simple Syrup 15 ml 09/09/20 09:40 09/17/20 17:43 Simple Syrup 15 Ml FEEDTUBE 15 ml PRN PRN Administration Hypoglycemia Simple Syrup 30 ml 09/09/20 09:40 Simple Syrup 15 Ml FEEDTUBE PRN PRN Hypoglycemia Sodium Bicarbonate 325 mg 09/09/20 09:40 10/16/20 08:36 Sodium Bicarbonate 325 Mg Tab FEEDTUBE 325 mg PRN PRN Administration For Clogged Feeding Tube Sodium Chloride 10 ml 09/07/20 22:00 10/17/20 09:17 Sodium Chloride 0.9% 10 Ml Flush Syringe IV 10 ml BID TAYLOR Administration Sodium Chloride 10 ml 09/07/20 17:55 Sodium Chloride 0.9% 10 Ml Flush Syringe IV PRN PRN LINE FLUSH Valproic Acid 1,000 mg 09/28/20 10:00 10/17/20 09:01 Valproic Acid 250 Mg/5 Ml Oral Liqd FEEDTUBE 1,000 mg BID TAYLOR Administration
--- NOTE | 2020-10-17 14:48 | Progress Note ---
Assessment and Plan Cultures: Blood culture 09/07/2020 no growth SARS CoV2 PCR positive 09/07/2020 urine culture: No growth HIV, hepatitis panel: Negative 10/04/2020 blood culture: No growth 10/05/2020 urine culture: Mixed cailin 10/12/2020 blood culture: No growth 10/12/2020 tracheal aspirate: Usual respiratory cailin 10/12/2020 urine culture: Yeast, non-albicans Assessment: 65 years old male with unknown medical history, morbidly obese, brought to the ED by EMS on 09/07/2020 secondary to passing out, found in out of hospital cardiac arrest status post resuscitation, intubated in the field: #New sepsis: UA with pyuria, chest x-ray appears unchanged but thickened upper respiratory secretions. Ruled out bacteremia. Prolonged and complicated hospital stay. Urine culture with non-albicans wilfredo, likely colonization given prolonged hospital stay and broad spectrum abx exposure #Azj-ri-[id number] cardiac arrest/shock #Bilateral pneumonia secondary to COVID-19 infection. Inflammatory markers elevated. D-dimer was 8315. apparently, patient was recently hospitalized at the [place] for COVID-19 prior to admission here. Was not a candidate for remdesivir due to hepatic and renal failure. #Acute hypoxic respiratory failure: now s/p trach, PEG. #Acute renal failure: required HD but now off, nephrology closely monitoring. #Acute anoxic encephalopathy. Recs: -monitor off abx Marisol Stock MD, FACP [facility] ([facility]) O: [phone] F: [phone] Subjective Date of service: 10/17/20 Principal diagnosis: Abnormal LFTs, s/p cardiac arrest, acute kidney injury with ATN Interval history: Afebrile. Non verbal. No change, d/w RN. Objective - Exam Narrative Exam: Physical Exam: Constitutional: Unresponsive Head, Ears, Nose: Normocephalic, atraumatic. External ears, nose normal Eyes: Conjunctivae/corneas clear. No icterus. No ptosis. Neck: Trach present Cardiovascular: S1, S2 + Respiratory: AE fair bilaterally and equal GI: Soft, bowel sounds +, G-tube + Musculoskeletal: No pedal edema, no cyanosis. Skin: No rash or abscess Hem/Lymphatic: No palpable cervical or supraclavicular nodes. No lymphangitis Psych: no agitation Neurological: Unresponsive - Constitutional Vitals: Vital Signs Temp Pulse Resp BP Pulse Ox 98.2 F 78 18 134/86 93 10/17/20 11:31 10/17/20 14:07 10/17/20 11:31 10/17/20 14:07 10/17/20 11:31 Temperature -Last 24 Hours Temperature 98.2 F Temperature 97.8 F Temperature 98.0 F Temperature 98.0 F Temperature 98.0 F Temperature 99.6 F - Labs CBC & Chem 7: 10/16/20 07:13 10/17/20 08:19 Labs: Abnormal lab results 10/16/20 10/16/20 10/16/20 Range/Units 10:07 12:31 16:45 Sodium (137-145) mmol/L Chloride (98-107) mmol/L BUN (9-20) mg/dL Creatinine (0.8-1.3) mg/dL Glucose (75-100) mg/dL POC Glucose 168 H 202 H 159 H (70-105) mg/dL 10/17/20 10/17/20 10/17/20 Range/Units 00:12 07:54 08:19 Sodium 133 L (137-145) mmol/L Chloride 96.8 L (98-107) mmol/L BUN 105 H (9-20) mg/dL Creatinine 4.8 H (0.8-1.3) mg/dL Glucose 220 H (75-100) mg/dL POC Glucose 190 H 173 H (70-105) mg/dL 10/17/20 Range/Units 09:12 Sodium (137-145) mmol/L Chloride (98-107) mmol/L BUN (9-20) mg/dL Creatinine (0.8-1.3) mg/dL Glucose (75-100) mg/dL POC Glucose 209 H (70-105) mg/dL
--- NOTE | 2020-10-17 14:55 | Progress Note ---
Assessment and Plan 65 yo male with severe anoxic-hypoxic cerebral injury w/ a poor exam. 1. Anoxic Hypoxic Encephalopathy - ordered MR Brain w/o contrast and EEG to confirm clinical findings. 2. Metabolic Encephalopathy - workup per primary team. Jt Iqbal MD Neurology Subjective Principal diagnosis: Abnormal LFTs, s/p cardiac arrest, acute kidney injury with ATN Interval history: 65 yo male s/p OOH cardiac arrest w/ covid pneumonia who is noted with continued encephalopathy with evidence of cerebral injury on the last NCHCT in 09/2020. Objective - Exam Narrative Exam: Gen: nad, well-nourished, +trach; Head: normocephalic; Eyes: no gaze deviation; no ptosis appreciated; ENT: +trach; CVS: warm and well-perfused; Pulm: no respiratory distress; GI: non-distended; Ext: no cyanosis at distal extremities; Skin: no acute rash at distal extremities; Heme: no bruising or ecchymosis at distal extremities; Neuro: obtunded, intubated, CN 2 - no blink to visual stimuli; sluggish reactive pupils, CN 3, 4, 6 - oculocephalic absent, CN 5/7 - opened eyes to tactile stimuli, CN 9/10 - no spontaneous swallow noted, CN 11/12 - pt cannot cooperate secondary to LOC; Motor/Sensory -0/5 in all exts to tactile stimuli; Cerebellar/Gait - pt cannot cooperate secondary to LOC; - Vital Sign Vital Signs - 12hr 10/17/20 10/17/20 10/17/20 05:16 05:30 06:27 Temperature 98.0 F Pulse Rate 71 71 Pulse Rate [ Left Radial] Pulse Rate [ Right Radial] Respiratory 18 Rate Blood Pressure 153/75 153/75 O2 Sat by Pulse 97 Oximetry O2 Sat by Pulse 98 Oximetry [ Assessment] 10/17/20 10/17/20 10/17/20 08:54 10:00 11:00 Temperature 97.8 F Pulse Rate 74 81 Pulse Rate [ 71 Left Radial] Pulse Rate [ 71 Right Radial] Respiratory 25 H 17 Rate Blood Pressure 132/53 O2 Sat by Pulse 93 94 98 Oximetry O2 Sat by Pulse 99 Oximetry [ Assessment] 10/17/20 10/17/20 11:31 14:07 Temperature 98.2 F Pulse Rate 72 78 Pulse Rate [ Left Radial] Pulse Rate [ Right Radial] Respiratory 18 Rate Blood Pressure 145/61 134/86 O2 Sat by Pulse 93 Oximetry O2 Sat by Pulse Oximetry [ Assessment] - Laboratory Findings CBC and BMP: 10/16/20 07:13 10/17/20 08:19 Abnormal Lab Findings: Abnormal Labs 09/07/20 09/07/20 09/07/20 13:08 14:00 14:00 WBC 15.7 H RBC Hgb 10.2 L Hct 32.5 L MCHC 31 L RDW 17.5 H Lymph % (Auto) Wallace % (Auto) Lymph # (Auto) Wallace # (Auto) Seg Neutrophils % Seg Neuts % (Manual) 72.0 H Lymphocytes % (Manual) Monocytes % (Manual) 8.0 H Nucleated RBC % Seg Neutrophils # Seg Neutrophils # Man 11.3 H Lymphocytes # (Manual) Monocytes # (Manual) 1.3 H PT INR D-Dimer 8315.85 H ABG pH POC ABG pCO2 POC ABG pO2 ABG pO2 ABG HCO3 ABG Base Excess ABG Hemoglobin ABG Oxyhemoglobin ABG Sodium ABG Potassium ABG Chloride ABG Glucose Carboxyhemoglobin Sodium Potassium Chloride Carbon Dioxide BUN Creatinine Glucose POC Glucose Lactic Acid Uric Acid Calcium Phosphorus Ferritin Total Bilirubin Direct Bilirubin AST ALT Lactate Dehydrogenase Total Creatine Kinase Troponin T Total Protein Albumin Triglycerides Arterial Blood Glucose Arterial Blood Ionized Calcium Urine pH 8.0 H Urine WBC (Auto) Urine Creatinine Salicylates Acetaminophen Coronavirus (PCR) Crossmatch 09/07/20 09/07/20 09/07/20 14:00 14:00 14:00 WBC RBC Hgb Hct MCHC RDW Lymph % (Auto) Wallace % (Auto) Lymph # (Auto) Wallace # (Auto) Seg Neutrophils % Seg Neuts % (Manual) Lymphocytes % (Manual) Monocytes % (Manual) Nucleated RBC % Seg Neutrophils # Seg Neutrophils # Man Lymphocytes # (Manual) Monocytes # (Manual) PT INR D-Dimer ABG pH POC ABG pCO2 POC ABG pO2 ABG pO2 ABG HCO3 ABG Base Excess ABG Hemoglobin ABG Oxyhemoglobin ABG Sodium ABG Potassium ABG Chloride ABG Glucose Carboxyhemoglobin Sodium Potassium Chloride Carbon Dioxide BUN Creatinine Glucose POC Glucose Lactic Acid 4.30 H* Uric Acid Calcium Phosphorus Ferritin > 2000.0 H Total Bilirubin Direct Bilirubin AST ALT Lactate Dehydrogenase 882 H Total Creatine Kinase 477 H Troponin T 0.076 H Total Protein Albumin Triglycerides Arterial Blood Glucose Arterial Blood Ionized Calcium Urine pH Urine WBC (Auto) Urine Creatinine Salicylates Acetaminophen Coronavirus (PCR) Crossmatch 09/07/20 09/07/20 09/07/20 14:00 14:00 14:00 WBC RBC Hgb Hct MCHC RDW Lymph % (Auto) Wallace % (Auto) Lymph # (Auto) Wallace # (Auto) Seg Neutrophils % Seg Neuts % (Manual) Lymphocytes % (Manual) Monocytes % (Manual) Nucleated RBC % Seg Neutrophils # Seg Neutrophils # Man Lymphocytes # (Manual) Monocytes # (Manual) PT INR D-Dimer ABG pH POC ABG pCO2 POC ABG pO2 ABG pO2 ABG HCO3 ABG Base Excess ABG Hemoglobin ABG Oxyhemoglobin ABG Sodium ABG Potassium ABG Chloride ABG Glucose Carboxyhemoglobin Sodium Potassium Chloride Carbon Dioxide BUN Creatinine 1.8 H Glucose POC Glucose Lactic Acid Uric Acid Calcium Phosphorus Ferritin Total Bilirubin Direct Bilirubin AST 310 H ALT 339 H Lactate Dehydrogenase Total Creatine Kinase Troponin T Total Protein Albumin 3.6 L Triglycerides Arterial Blood Glucose Arterial Blood Ionized Calcium Urine pH Urine WBC (Auto) Urine Creatinine Salicylates < 0.3 L Acetaminophen 5.0 L Coronavirus (PCR) Crossmatch 09/07/20 09/08/20 09/08/20 14:26 04:00 04:17 WBC RBC Hgb Hct MCHC RDW Lymph % (Auto) Wallace % (Auto) Lymph # (Auto) Wallace # (Auto) Seg Neutrophils % Seg Neuts % (Manual) Lymphocytes % (Manual) Monocytes % (Manual) Nucleated RBC % Seg Neutrophils # Seg Neutrophils # Man Lymphocytes # (Manual) Monocytes # (Manual) PT INR D-Dimer ABG pH 7.037 L 7.095 L POC ABG pCO2 92.4 H 68.0 H POC ABG pO2 130.8 H 43.5 L ABG pO2 ABG HCO3 ABG Base Excess ABG Hemoglobin 11.3 L 10.6 L ABG Oxyhemoglobin 70.8 L ABG Sodium ABG Potassium 7.0 H ABG Chloride 108.0 H ABG Glucose Carboxyhemoglobin 0.3 L Sodium Potassium 8.4 H* D Chloride Carbon Dioxide 17 L D BUN 38 H Creatinine 3.9 H D Glucose POC Glucose Lactic Acid Uric Acid Calcium 7.7 L D Phosphorus Ferritin Total Bilirubin Direct Bilirubin AST ALT Lactate Dehydrogenase Total Creatine Kinase Troponin T Total Protein Albumin Triglycerides Arterial Blood Glucose Arterial Blood Ionized Calcium 4.5 L Urine pH Urine WBC (Auto) Urine Creatinine Salicylates Acetaminophen Coronavirus (PCR) Crossmatch 09/08/20 09/08/20 09/08/20 05:00 05:25 12:02 WBC RBC Hgb Hct MCHC RDW Lymph % (Auto) Wallace % (Auto) Lymph # (Auto) Wallace # (Auto) Seg Neutrophils % Seg Neuts % (Manual) Lymphocytes % (Manual) Monocytes % (Manual) Nucleated RBC % Seg Neutrophils # Seg Neutrophils # Man Lymphocytes # (Manual) Monocytes # (Manual) PT INR D-Dimer ABG pH 7.088 L POC ABG pCO2 69.1 H POC ABG pO2 35.2 L ABG pO2 ABG HCO3 ABG Base Excess ABG Hemoglobin 10.9 L ABG Oxyhemoglobin 57.1 L ABG Sodium ABG Potassium 7.0 H ABG Chloride 108.0 H ABG Glucose Carboxyhemoglobin 0.4 L Sodium Potassium 8.1 H* Chloride Carbon Dioxide 17 L BUN 38 H Creatinine 3.7 H Glucose POC Glucose Lactic Acid Uric Acid Calcium 8.0 L Phosphorus 8.00 H Ferritin Total Bilirubin Direct Bilirubin 0.5 H AST 3696 H ALT 3331 H Lactate Dehydrogenase Total Creatine Kinase Troponin T Total Protein Albumin 3.5 L Triglycerides Arterial Blood Glucose Arterial Blood Ionized Calcium 4.4 L Urine pH Urine WBC (Auto) Urine Creatinine Salicylates Acetaminophen Coronavirus (PCR) Crossmatch 09/08/20 09/08/20 09/08/20 16:31 22:36 Unknown WBC RBC Hgb Hct MCHC RDW Lymph % (Auto) Wallace % (Auto) Lymph # (Auto) Wallace # (Auto) Seg Neutrophils % Seg Neuts % (Manual) Lymphocytes % (Manual) Monocytes % (Manual) Nucleated RBC % Seg Neutrophils # Seg Neutrophils # Man Lymphocytes # (Manual) Monocytes # (Manual) PT INR D-Dimer ABG pH POC ABG pCO2 POC ABG pO2 ABG pO2 ABG HCO3 ABG Base Excess ABG Hemoglobin ABG Oxyhemoglobin ABG Sodium ABG Potassium ABG Chloride ABG Glucose Carboxyhemoglobin Sodium Potassium 5.3 H D Chloride Carbon Dioxide BUN Creatinine Glucose POC Glucose 158 H Lactic Acid Uric Acid Calcium Phosphorus Ferritin Total Bilirubin Direct Bilirubin AST ALT Lactate Dehydrogenase Total Creatine Kinase Troponin T Total Protein Albumin Triglycerides Arterial Blood Glucose Arterial Blood Ionized Calcium Urine pH Urine WBC (Auto) Urine Creatinine Salicylates Acetaminophen Coronavirus (PCR) Positive A Crossmatch 09/08/20 09/08/20 09/08/20 Unknown Unknown Unknown WBC 18.4 H RBC Hgb 10.1 L Hct 32.0 L MCHC RDW 18.2 H Lymph % (Auto) Wallace % (Auto) Lymph # (Auto) Wallace # (Auto) Seg Neutrophils % Seg Neuts % (Manual) 81.0 H Lymphocytes % (Manual) 2.0 L Monocytes % (Manual) Nucleated RBC % 1.0 H Seg Neutrophils # Seg Neutrophils # Man 14.9 H Lymphocytes # (Manual) 0.4 L Monocytes # (Manual) 1.1 H PT 21.2 H INR 1.83 H D-Dimer ABG pH POC ABG pCO2 POC ABG pO2 ABG pO2 ABG HCO3 ABG Base Excess ABG Hemoglobin ABG Oxyhemoglobin ABG Sodium ABG Potassium ABG Chloride ABG Glucose Carboxyhemoglobin Sodium Potassium Chloride Carbon Dioxide BUN Creatinine Glucose POC Glucose Lactic Acid Uric Acid Calcium Phosphorus Ferritin Total Bilirubin Direct Bilirubin AST ALT Lactate Dehydrogenase Total Creatine Kinase Troponin T Total Protein Albumin Triglycerides Arterial Blood Glucose Arterial Blood Ionized Calcium Urine pH Urine WBC (Auto) Urine Creatinine 182.4 H Salicylates Acetaminophen Coronavirus (PCR) Crossmatch 09/09/20 09/09/20 09/09/20 03:14 04:20 04:20 WBC 16.3 H RBC 3.12 L Hgb 8.6 L Hct 26.8 L MCHC RDW 18.2 H Lymph % (Auto) 6.3 L Wallace % (Auto) 8.8 H Lymph # (Auto) 1.0 L Wallace # (Auto) 1.4 H Seg Neutrophils % 84.5 H Seg Neuts % (Manual) Lymphocytes % (Manual) Monocytes % (Manual) Nucleated RBC % Seg Neutrophils # 13.7 H Seg Neutrophils # Man Lymphocytes # (Manual) Monocytes # (Manual) PT INR D-Dimer ABG pH POC ABG pCO2 POC ABG pO2 148.5 H ABG pO2 ABG HCO3 ABG Base Excess ABG Hemoglobin 9.4 L ABG Oxyhemoglobin 98.8 H ABG Sodium 134.8 L ABG Potassium 5.0 H ABG Chloride ABG Glucose 222 H Carboxyhemoglobin 0.1 L Sodium Potassium 5.2 H Chloride Carbon Dioxide BUN 47 H Creatinine 4.3 H Glucose 211 H POC Glucose Lactic Acid Uric Acid Calcium 7.4 L Phosphorus Ferritin Total Bilirubin [place] AST 46733 H ALT 6206 H Lactate Dehydrogenase Total Creatine Kinase Troponin T Total Protein 5.6 L Albumin 3.0 L Triglycerides Arterial Blood Glucose 222 H Arterial Blood Ionized Calcium 3.8 L Urine pH Urine WBC (Auto) Urine Creatinine Salicylates Acetaminophen Coronavirus (PCR) Crossmatch 09/09/20 09/09/20 09/09/20 10:00 12:23 18:22 WBC RBC Hgb Hct MCHC RDW Lymph % (Auto) Wallace % (Auto) Lymph # (Auto) Wallace # (Auto) Seg Neutrophils % Seg Neuts % (Manual) Lymphocytes % (Manual) Monocytes % (Manual) Nucleated RBC % Seg Neutrophils # Seg Neutrophils # Man Lymphocytes # (Manual) Monocytes # (Manual) PT 21.7 H INR 1.90 H D-Dimer ABG pH POC ABG pCO2 POC ABG pO2 ABG pO2 ABG HCO3 ABG Base Excess ABG Hemoglobin ABG Oxyhemoglobin ABG Sodium ABG Potassium ABG Chloride ABG Glucose Carboxyhemoglobin Sodium Potassium Chloride Carbon Dioxide BUN Creatinine Glucose POC Glucose 216 H 211 H Lactic Acid Uric Acid Calcium Phosphorus Ferritin Total Bilirubin Direct Bilirubin AST ALT Lactate Dehydrogenase Total Creatine Kinase Troponin T Total Protein Albumin Triglycerides Arterial Blood Glucose Arterial Blood Ionized Calcium Urine pH Urine WBC (Auto) Urine Creatinine Salicylates Acetaminophen Coronavirus (PCR) Crossmatch 09/10/20 09/10/20 09/10/20 04:00 04:05 04:05 WBC 15.0 H RBC 3.06 L Hgb 8.6 L Hct 25.8 L MCHC RDW 18.0 H Lymph % (Auto) Wallace % (Auto) Lymph # (Auto) Wallace # (Auto) Seg Neutrophils % Seg Neuts % (Manual) 86.0 H Lymphocytes % (Manual) 6.0 L Monocytes % (Manual) 8.0 H Nucleated RBC % Seg Neutrophils # Seg Neutrophils # Man 12.9 H Lymphocytes # (Manual) 0.9 L Monocytes # (Manual) 1.2 H PT 18.4 H INR 1.54 H D-Dimer ABG pH POC ABG pCO2 POC ABG pO2 ABG pO2 ABG HCO3 ABG Base Excess ABG Hemoglobin ABG Oxyhemoglobin ABG Sodium ABG Potassium ABG Chloride ABG Glucose Carboxyhemoglobin Sodium 134 L Potassium Chloride 93.7 L Carbon Dioxide BUN 46 H Creatinine 3.6 H Glucose 275 H POC Glucose Lactic Acid Uric Acid Calcium 7.7 L Phosphorus Ferritin Total Bilirubin 1.30 H Direct Bilirubin AST 5899 H ALT 6440 H Lactate Dehydrogenase Total Creatine Kinase Troponin T Total Protein 5.9 L Albumin 3.3 L Triglycerides Arterial Blood Glucose Arterial Blood Ionized Calcium Urine pH Urine WBC (Auto) Urine Creatinine Salicylates Acetaminophen Coronavirus (PCR) Crossmatch 09/10/20 09/10/20 09/10/20 04:35 12:06 17:42 WBC RBC Hgb Hct MCHC RDW Lymph % (Auto) Wallace % (Auto) Lymph # (Auto) Wallace # (Auto) Seg Neutrophils % Seg Neuts % (Manual) Lymphocytes % (Manual) Monocytes % (Manual) Nucleated RBC % Seg Neutrophils # Seg Neutrophils # Man Lymphocytes # (Manual) Monocytes # (Manual) PT INR D-Dimer ABG pH 7.464 H POC ABG pCO2 POC ABG pO2 ABG pO2 ABG HCO3 ABG Base Excess ABG Hemoglobin 9.9 L ABG Oxyhemoglobin ABG Sodium 131.6 L ABG Potassium ABG Chloride 97.0 L ABG Glucose 281 H Carboxyhemoglobin 0.1 L Sodium Potassium Chloride Carbon Dioxide BUN Creatinine Glucose POC Glucose 298 H 340 H Lactic Acid Uric Acid Calcium Phosphorus Ferritin Total Bilirubin Direct Bilirubin AST ALT Lactate Dehydrogenase Total Creatine Kinase Troponin T Total Protein Albumin Triglycerides Arterial Blood Glucose 281 H Arterial Blood Ionized Calcium 3.9 L Urine pH Urine WBC (Auto) Urine Creatinine Salicylates Acetaminophen Coronavirus (PCR) Crossmatch 09/10/20 09/11/20 09/11/20 23:07 04:44 05:17 WBC RBC Hgb Hct MCHC RDW Lymph % (Auto) Wallace % (Auto) Lymph # (Auto) Wallace # (Auto) Seg Neutrophils % Seg Neuts % (Manual) Lymphocytes % (Manual) Monocytes % (Manual) Nucleated RBC % Seg Neutrophils # Seg Neutrophils # Man Lymphocytes # (Manual) Monocytes # (Manual) PT 16.9 H INR 1.39 H D-Dimer ABG pH POC ABG pCO2 POC ABG pO2 ABG pO2 ABG HCO3 ABG Base Excess ABG Hemoglobin ABG Oxyhemoglobin ABG Sodium ABG Potassium ABG Chloride ABG Glucose Carboxyhemoglobin Sodium Potassium Chloride Carbon Dioxide BUN Creatinine Glucose POC Glucose 367 H 416 H Lactic Acid Uric Acid Calcium Phosphorus Ferritin Total Bilirubin Direct Bilirubin AST ALT Lactate Dehydrogenase Total Creatine Kinase Troponin T Total Protein Albumin Triglycerides Arterial Blood Glucose Arterial Blood Ionized Calcium Urine pH Urine WBC (Auto) Urine Creatinine Salicylates Acetaminophen Coronavirus (PCR) Crossmatch 09/11/20 09/11/20 09/11/20 05:40 12:01 17:50 WBC RBC Hgb Hct MCHC RDW Lymph % (Auto) Wallace % (Auto) Lymph # (Auto) Wallace # (Auto) Seg Neutrophils % Seg Neuts % (Manual) Lymphocytes % (Manual) Monocytes % (Manual) Nucleated RBC % Seg Neutrophils # Seg Neutrophils # Man Lymphocytes # (Manual) Monocytes # (Manual) PT INR D-Dimer ABG pH 7.543 H POC ABG pCO2 POC ABG pO2 ABG pO2 112.1 H ABG HCO3 28.1 H ABG Base Excess 5.4 H ABG Hemoglobin 8.4 L ABG Oxyhemoglobin ABG Sodium ABG Potassium ABG Chloride ABG Glucose Carboxyhemoglobin Sodium Potassium Chloride Carbon Dioxide BUN Creatinine Glucose POC Glucose 418 H 404 H Lactic Acid Uric Acid Calcium Phosphorus Ferritin Total Bilirubin Direct Bilirubin AST ALT Lactate Dehydrogenase Total Creatine Kinase Troponin T Total Protein Albumin Triglycerides Arterial Blood Glucose Arterial Blood Ionized Calcium Urine pH Urine WBC (Auto) Urine Creatinine Salicylates Acetaminophen Coronavirus (PCR) Crossmatch 09/11/20 09/11/20 09/12/20 23:10 23:43 03:15 WBC RBC Hgb Hct MCHC RDW Lymph % (Auto) Wallace % (Auto) Lymph # (Auto) Wallace # (Auto) Seg Neutrophils % Seg Neuts % (Manual) Lymphocytes % (Manual) Monocytes % (Manual) Nucleated RBC % Seg Neutrophils # Seg Neutrophils # Man Lymphocytes # (Manual) Monocytes # (Manual) PT INR D-Dimer ABG pH POC ABG pCO2 POC ABG pO2 ABG pO2 ABG HCO3 ABG Base Excess ABG Hemoglobin ABG Oxyhemoglobin ABG Sodium ABG Potassium ABG Chloride ABG Glucose Carboxyhemoglobin Sodium 135 L Potassium Chloride 92.3 L Carbon Dioxide BUN 62 H Creatinine 3.7 H Glucose 406 H POC Glucose 372 H 359 H Lactic Acid Uric Acid Calcium Phosphorus Ferritin Total Bilirubin Direct Bilirubin AST 687 H ALT 3701 H Lactate Dehydrogenase Total Creatine Kinase Troponin T Total Protein 5.8 L Albumin 3.1 L Triglycerides Arterial Blood Glucose Arterial Blood Ionized Calcium Urine pH Urine WBC (Auto) Urine Creatinine Salicylates Acetaminophen Coronavirus (PCR) Crossmatch 09/12/20 09/12/20 09/12/20 03:18 04:00 04:00 WBC 13.7 H RBC 3.30 L Hgb 9.3 L Hct 27.6 L MCHC RDW 17.5 H Lymph % (Auto) Wallace % (Auto) Lymph # (Auto) Wallace # (Auto) Seg Neutrophils % Seg Neuts % (Manual) 76.0 H Lymphocytes % (Manual) 11.0 L Monocytes % (Manual) 13.0 H Nucleated RBC % Seg Neutrophils # Seg Neutrophils # Man 10.4 H Lymphocytes # (Manual) Monocytes # (Manual) 1.8 H PT 16.1 H INR 1.31 H D-Dimer ABG pH 7.558 H POC ABG pCO2 POC ABG pO2 74.7 L ABG pO2 ABG HCO3 ABG Base Excess ABG Hemoglobin 9.7 L ABG Oxyhemoglobin ABG Sodium 132.4 L ABG Potassium ABG Chloride 95.0 L ABG Glucose 437 H Carboxyhemoglobin Sodium Potassium Chloride Carbon Dioxide BUN Creatinine Glucose POC Glucose Lactic Acid Uric Acid Calcium Phosphorus Ferritin Total Bilirubin Direct Bilirubin AST ALT Lactate Dehydrogenase Total Creatine Kinase Troponin T Total Protein Albumin Triglycerides Arterial Blood Glucose 437 H Arterial Blood Ionized Calcium 4.3 L Urine pH Urine WBC (Auto) Urine Creatinine Salicylates Acetaminophen Coronavirus (PCR) Crossmatch 09/12/20 09/12/20 09/12/20 04:21 05:20 06:37 WBC RBC Hgb Hct MCHC RDW Lymph % (Auto) Wallace % (Auto) Lymph # (Auto) Wallace # (Auto) Seg Neutrophils % Seg Neuts % (Manual) Lymphocytes % (Manual) Monocytes % (Manual) Nucleated RBC % Seg Neutrophils # Seg Neutrophils # Man Lymphocytes # (Manual) Monocytes # (Manual) PT INR D-Dimer ABG pH POC ABG pCO2 POC ABG pO2 ABG pO2 ABG HCO3 ABG Base Excess ABG Hemoglobin ABG Oxyhemoglobin ABG Sodium ABG Potassium ABG Chloride ABG Glucose Carboxyhemoglobin Sodium Potassium Chloride Carbon Dioxide BUN Creatinine Glucose POC Glucose 417 H 397 H 370 H Lactic Acid Uric Acid Calcium Phosphorus Ferritin Total Bilirubin Direct Bilirubin AST ALT Lactate Dehydrogenase Total Creatine Kinase Troponin T Total Protein Albumin Triglycerides Arterial Blood Glucose Arterial Blood Ionized Calcium Urine pH Urine WBC (Auto) Urine Creatinine Salicylates Acetaminophen Coronavirus (PCR) Crossmatch 09/12/20 09/12/20 09/12/20 11:56 17:14 21:52 WBC RBC Hgb Hct MCHC RDW Lymph % (Auto) Wallace % (Auto) Lymph # (Auto) Wallace # (Auto) Seg Neutrophils % Seg Neuts % (Manual) Lymphocytes % (Manual) Monocytes % (Manual) Nucleated RBC % Seg Neutrophils # Seg Neutrophils # Man Lymphocytes # (Manual) Monocytes # (Manual) PT INR D-Dimer ABG pH POC ABG pCO2 POC ABG pO2 ABG pO2 ABG HCO3 ABG Base Excess ABG Hemoglobin ABG Oxyhemoglobin ABG Sodium ABG Potassium ABG Chloride ABG Glucose Carboxyhemoglobin Sodium Potassium Chloride Carbon Dioxide BUN Creatinine Glucose POC Glucose 341 H 325 H 285 H Lactic Acid Uric Acid Calcium Phosphorus Ferritin Total Bilirubin Direct Bilirubin AST ALT Lactate Dehydrogenase Total Creatine Kinase Troponin T Total Protein Albumin Triglycerides Arterial Blood Glucose Arterial Blood Ionized Calcium Urine pH Urine WBC (Auto) Urine Creatinine Salicylates Acetaminophen Coronavirus (PCR) Crossmatch 09/12/20 09/12/20 09/12/20 23:39 Unknown Unknown WBC RBC Hgb Hct MCHC RDW Lymph % (Auto) Wallace % (Auto) Lymph # (Auto) Wallace # (Auto) Seg Neutrophils % Seg Neuts % (Manual) Lymphocytes % (Manual) Monocytes % (Manual) Nucleated RBC % Seg Neutrophils # Seg Neutrophils # Man Lymphocytes # (Manual) Monocytes # (Manual) PT INR D-Dimer ABG pH POC ABG pCO2 POC ABG pO2 ABG pO2 ABG HCO3 ABG Base Excess ABG Hemoglobin ABG Oxyhemoglobin ABG Sodium ABG Potassium ABG Chloride ABG Glucose Carboxyhemoglobin Sodium 135 L Potassium Chloride 92.2 L Carbon Dioxide BUN 65 H Creatinine 3.5 H Glucose 418 H POC Glucose 338 H Lactic Acid Uric Acid Calcium Phosphorus Ferritin Total Bilirubin Direct Bilirubin AST 553 H ALT 3453 H Lactate Dehydrogenase Total Creatine Kinase Troponin T Total Protein 5.9 L Albumin 3.0 L Triglycerides 220 H Arterial Blood Glucose Arterial Blood Ionized Calcium Urine pH Urine WBC (Auto) Urine Creatinine Salicylates Acetaminophen Coronavirus (PCR) Crossmatch 09/13/20 09/13/20 09/13/20 04:47 05:24 10:50 WBC RBC Hgb Hct MCHC RDW Lymph % (Auto) Wallace % (Auto) Lymph # (Auto) Wallace # (Auto) Seg Neutrophils % Seg Neuts % (Manual) Lymphocytes % (Manual) Monocytes % (Manual) Nucleated RBC % Seg Neutrophils # Seg Neutrophils # Man Lymphocytes # (Manual) Monocytes # (Manual) PT INR D-Dimer ABG pH 7.571 H POC ABG pCO2 POC ABG pO2 69.0 L ABG pO2 ABG HCO3 ABG Base Excess ABG Hemoglobin 10.1 L ABG Oxyhemoglobin 93.2 L ABG Sodium 134.0 L ABG Potassium ABG Chloride ABG Glucose 365 H Carboxyhemoglobin 0.4 L Sodium Potassium Chloride 96.6 L Carbon Dioxide 32 H BUN 76 H Creatinine 3.1 H Glucose 395 H POC Glucose 329 H Lactic Acid Uric Acid Calcium Phosphorus Ferritin Total Bilirubin Direct Bilirubin AST ALT Lactate Dehydrogenase Total Creatine Kinase Troponin T Total Protein Albumin Triglycerides Arterial Blood Glucose 365 H Arterial Blood Ionized Calcium Urine pH Urine WBC (Auto) Urine Creatinine Salicylates Acetaminophen Coronavirus (PCR) Crossmatch 09/13/20 09/13/20 09/13/20 11:39 17:48 23:35 WBC RBC Hgb Hct MCHC RDW Lymph % (Auto) Wallace % (Auto) Lymph # (Auto) Wallace # (Auto) Seg Neutrophils % Seg Neuts % (Manual) Lymphocytes % (Manual) Monocytes % (Manual) Nucleated RBC % Seg Neutrophils # Seg Neutrophils # Man Lymphocytes # (Manual) Monocytes # (Manual) PT INR D-Dimer ABG pH POC ABG pCO2 POC ABG pO2 ABG pO2 ABG HCO3 ABG Base Excess ABG Hemoglobin ABG Oxyhemoglobin ABG Sodium ABG Potassium ABG Chloride ABG Glucose Carboxyhemoglobin Sodium Potassium Chloride Carbon Dioxide BUN Creatinine Glucose POC Glucose 344 H 286 H 223 H Lactic Acid Uric Acid Calcium Phosphorus Ferritin Total Bilirubin Direct Bilirubin AST ALT Lactate Dehydrogenase Total Creatine Kinase Troponin T Total Protein Albumin Triglycerides Arterial Blood Glucose Arterial Blood Ionized Calcium Urine pH Urine WBC (Auto) Urine Creatinine Salicylates Acetaminophen Coronavirus (PCR) Crossmatch 09/14/20 09/14/20 09/14/20 03:54 05:34 10:27 WBC RBC Hgb Hct MCHC RDW Lymph % (Auto) Wallace % (Auto) Lymph # (Auto) Wallace # (Auto) Seg Neutrophils % Seg Neuts % (Manual) Lymphocytes % (Manual) Monocytes % (Manual) Nucleated RBC % Seg Neutrophils # Seg Neutrophils # Man Lymphocytes # (Manual) Monocytes # (Manual) PT INR D-Dimer ABG pH POC ABG pCO2 POC ABG pO2 71.1 L ABG pO2 ABG HCO3 ABG Base Excess ABG Hemoglobin 10.3 L ABG Oxyhemoglobin ABG Sodium 135.2 L ABG Potassium ABG Chloride ABG Glucose 281 H Carboxyhemoglobin Sodium Potassium Chloride 96.6 L Carbon Dioxide BUN 100 H Creatinine 3.9 H Glucose 286 H POC Glucose 252 H Lactic Acid Uric Acid Calcium Phosphorus Ferritin Total Bilirubin Direct Bilirubin AST 145 H ALT 1400 H Lactate Dehydrogenase Total Creatine Kinase Troponin T Total Protein 5.6 L Albumin 2.9 L Triglycerides Arterial Blood Glucose 281 H Arterial Blood Ionized Calcium Urine pH Urine WBC (Auto) Urine Creatinine Salicylates Acetaminophen Coronavirus (PCR) Crossmatch 09/14/20 09/14/20 09/14/20 11:38 17:52 23:07 WBC RBC Hgb Hct MCHC RDW Lymph % (Auto) Wallace % (Auto) Lymph # (Auto) Wallace # (Auto) Seg Neutrophils % Seg Neuts % (Manual) Lymphocytes % (Manual) Monocytes % (Manual) Nucleated RBC % Seg Neutrophils # Seg Neutrophils # Man Lymphocytes # (Manual) Monocytes # (Manual) PT INR D-Dimer ABG pH POC ABG pCO2 POC ABG pO2 ABG pO2 ABG HCO3 ABG Base Excess ABG Hemoglobin ABG Oxyhemoglobin ABG Sodium ABG Potassium ABG Chloride ABG Glucose Carboxyhemoglobin Sodium Potassium Chloride Carbon Dioxide BUN Creatinine Glucose POC Glucose 247 H 247 H 256 H Lactic Acid Uric Acid Calcium Phosphorus Ferritin Total Bilirubin Direct Bilirubin AST ALT Lactate Dehydrogenase Total Creatine Kinase Troponin T Total Protein Albumin Triglycerides Arterial Blood Glucose Arterial Blood Ionized Calcium Urine pH Urine WBC (Auto) Urine Creatinine Salicylates Acetaminophen Coronavirus (PCR) Crossmatch 09/15/20 09/15/20 09/15/20 04:54 11:24 17:48 WBC RBC Hgb Hct MCHC RDW Lymph % (Auto) Wallace % (Auto) Lymph # (Auto) Wallace # (Auto) Seg Neutrophils % Seg Neuts % (Manual) Lymphocytes % (Manual) Monocytes % (Manual) Nucleated RBC % Seg Neutrophils # Seg Neutrophils # Man Lymphocytes # (Manual) Monocytes # (Manual) PT INR D-Dimer ABG pH POC ABG pCO2 POC ABG pO2 ABG pO2 ABG HCO3 ABG Base Excess ABG Hemoglobin ABG Oxyhemoglobin ABG Sodium ABG Potassium ABG Chloride ABG Glucose Carboxyhemoglobin Sodium Potassium Chloride Carbon Dioxide BUN Creatinine Glucose POC Glucose 271 H 228 H 254 H Lactic Acid Uric Acid Calcium Phosphorus Ferritin Total Bilirubin Direct Bilirubin AST ALT Lactate Dehydrogenase Total Creatine Kinase Troponin T Total Protein Albumin Triglycerides Arterial Blood Glucose Arterial Blood Ionized Calcium Urine pH Urine WBC (Auto) Urine Creatinine Salicylates Acetaminophen Coronavirus (PCR) Crossmatch 09/15/20 09/15/20 09/15/20 19:20 19:20 23:13 WBC 27.3 H RBC 3.16 L Hgb 8.8 L Hct 27.0 L MCHC RDW 19.7 H Lymph % (Auto) Wallace % (Auto) Lymph # (Auto) Wallace # (Auto) Seg Neutrophils % Seg Neuts % (Manual) 81.0 H Lymphocytes % (Manual) 9.0 L Monocytes % (Manual) 10.0 H Nucleated RBC % Seg Neutrophils # Seg Neutrophils # Man 22.1 H Lymphocytes # (Manual) Monocytes # (Manual) 2.7 H PT INR D-Dimer ABG pH POC ABG pCO2 POC ABG pO2 ABG pO2 ABG HCO3 ABG Base Excess ABG Hemoglobin ABG Oxyhemoglobin ABG Sodium ABG Potassium ABG Chloride ABG Glucose Carboxyhemoglobin Sodium Potassium Chloride Carbon Dioxide BUN 68 H Creatinine 2.8 H Glucose 288 H POC Glucose 259 H Lactic Acid Uric Acid Calcium Phosphorus Ferritin Total Bilirubin Direct Bilirubin AST ALT Lactate Dehydrogenase Total Creatine Kinase Troponin T Total Protein Albumin Triglycerides Arterial Blood Glucose Arterial Blood Ionized Calcium Urine pH Urine WBC (Auto) Urine Creatinine Salicylates Acetaminophen Coronavirus (PCR) Crossmatch 09/16/20 09/16/20 09/16/20 05:27 09:40 11:48 WBC RBC Hgb Hct MCHC RDW Lymph % (Auto) Wallace % (Auto) Lymph # (Auto) Wallace # (Auto) Seg Neutrophils % Seg Neuts % (Manual) Lymphocytes % (Manual) Monocytes % (Manual) Nucleated RBC % Seg Neutrophils # Seg Neutrophils # Man Lymphocytes # (Manual) Monocytes # (Manual) PT INR D-Dimer ABG pH POC ABG pCO2 POC ABG pO2 ABG pO2 ABG HCO3 ABG Base Excess ABG Hemoglobin ABG Oxyhemoglobin ABG Sodium ABG Potassium ABG Chloride ABG Glucose Carboxyhemoglobin Sodium Potassium Chloride Carbon Dioxide 31 H BUN 77 H Creatinine 2.9 H Glucose 250 H POC Glucose 275 H 234 H Lactic Acid Uric Acid Calcium Phosphorus Ferritin Total Bilirubin Direct Bilirubin AST ALT Lactate Dehydrogenase Total Creatine Kinase Troponin T Total Protein Albumin Triglycerides Arterial Blood Glucose Arterial Blood Ionized Calcium Urine pH Urine WBC (Auto) Urine Creatinine Salicylates Acetaminophen Coronavirus (PCR) Crossmatch 09/16/20 09/16/20 09/17/20 17:40 23:23 00:01 WBC RBC Hgb Hct MCHC RDW Lymph % (Auto) Wallace % (Auto) Lymph # (Auto) Wallace # (Auto) Seg Neutrophils % Seg Neuts % (Manual) Lymphocytes % (Manual) Monocytes % (Manual) Nucleated RBC % Seg Neutrophils # Seg Neutrophils # Man Lymphocytes # (Manual) Monocytes # (Manual) PT INR D-Dimer ABG pH POC ABG pCO2 POC ABG pO2 ABG pO2 ABG HCO3 ABG Base Excess ABG Hemoglobin ABG Oxyhemoglobin ABG Sodium ABG Potassium ABG Chloride ABG Glucose Carboxyhemoglobin Sodium Potassium Chloride Carbon Dioxide BUN Creatinine Glucose POC Glucose 172 H 161 H Lactic Acid 2.10 H* Uric Acid Calcium Phosphorus Ferritin Total Bilirubin Direct Bilirubin AST ALT Lactate Dehydrogenase Total Creatine Kinase Troponin T Total Protein Albumin Triglycerides Arterial Blood Glucose Arterial Blood Ionized Calcium Urine pH Urine WBC (Auto) Urine Creatinine Salicylates Acetaminophen Coronavirus (PCR) Crossmatch 09/17/20 09/17/20 09/17/20 04:00 04:00 05:09 WBC 19.5 H RBC 3.03 L Hgb 8.6 L Hct 26.3 L MCHC RDW 19.4 H Lymph % (Auto) 8.7 L Wallace % (Auto) 13.7 H Lymph # (Auto) Wallace # (Auto) 2.7 H Seg Neutrophils % 76.9 H Seg Neuts % (Manual) Lymphocytes % (Manual) Monocytes % (Manual) Nucleated RBC % Seg Neutrophils # 15.0 H Seg Neutrophils # Man Lymphocytes # (Manual) Monocytes # (Manual) PT INR D-Dimer ABG pH POC ABG pCO2 POC ABG pO2 ABG pO2 ABG HCO3 ABG Base Excess ABG Hemoglobin ABG Oxyhemoglobin ABG Sodium ABG Potassium ABG Chloride ABG Glucose Carboxyhemoglobin Sodium 146 H Potassium 3.1 L Chloride Carbon Dioxide BUN 79 H Creatinine 2.6 H Glucose 122 H POC Glucose 116 H Lactic Acid Uric Acid Calcium Phosphorus Ferritin Total Bilirubin Direct Bilirubin AST 64 H ALT 516 H Lactate Dehydrogenase Total Creatine Kinase Troponin T Total Protein 5.7 L Albumin 2.8 L Triglycerides Arterial Blood Glucose Arterial Blood Ionized Calcium Urine pH Urine WBC (Auto) Urine Creatinine Salicylates Acetaminophen Coronavirus (PCR) Crossmatch 09/17/20 09/17/20 09/18/20 13:52 17:38 05:16 WBC RBC Hgb Hct MCHC RDW Lymph % (Auto) Wallace % (Auto) Lymph # (Auto) Wallace # (Auto) Seg Neutrophils % Seg Neuts % (Manual) Lymphocytes % (Manual) Monocytes % (Manual) Nucleated RBC % Seg Neutrophils # Seg Neutrophils # Man Lymphocytes # (Manual) Monocytes # (Manual) PT INR D-Dimer ABG pH POC ABG pCO2 POC ABG pO2 ABG pO2 ABG HCO3 ABG Base Excess ABG Hemoglobin ABG Oxyhemoglobin ABG Sodium ABG Potassium ABG Chloride ABG Glucose Carboxyhemoglobin Sodium Potassium Chloride Carbon Dioxide BUN Creatinine Glucose POC Glucose 68 L 126 H Lactic Acid 2.90 H* Uric Acid Calcium Phosphorus Ferritin Total Bilirubin Direct Bilirubin AST ALT Lactate Dehydrogenase Total Creatine Kinase Troponin T Total Protein Albumin Triglycerides Arterial Blood Glucose Arterial Blood Ionized Calcium Urine pH Urine WBC (Auto) Urine Creatinine Salicylates Acetaminophen Coronavirus (PCR) Crossmatch 09/18/20 09/18/20 09/18/20 05:30 05:30 11:42 WBC 18.2 H RBC 3.18 L Hgb 9.0 L Hct 27.2 L MCHC RDW 18.8 H Lymph % (Auto) Wallace % (Auto) Lymph # (Auto) Wallace # (Auto) Seg Neutrophils % Seg Neuts % (Manual) Lymphocytes % (Manual) Monocytes % (Manual) Nucleated RBC % Seg Neutrophils # Seg Neutrophils # Man Lymphocytes # (Manual) Monocytes # (Manual) PT INR D-Dimer ABG pH POC ABG pCO2 POC ABG pO2 ABG pO2 ABG HCO3 ABG Base Excess ABG Hemoglobin ABG Oxyhemoglobin ABG Sodium ABG Potassium ABG Chloride ABG Glucose Carboxyhemoglobin Sodium Potassium 3.1 L Chloride Carbon Dioxide BUN 73 H Creatinine 2.6 H Glucose 154 H POC Glucose 140 H Lactic Acid Uric Acid Calcium Phosphorus Ferritin Total Bilirubin Direct Bilirubin AST ALT Lactate Dehydrogenase Total Creatine Kinase Troponin T Total Protein Albumin Triglycerides Arterial Blood Glucose Arterial Blood Ionized Calcium Urine pH Urine WBC (Auto) Urine Creatinine Salicylates Acetaminophen Coronavirus (PCR) Crossmatch 09/18/20 09/18/20 09/19/20 18:15 23:37 05:13 WBC 22.8 H RBC 3.30 L Hgb 9.2 L Hct 28.1 L MCHC RDW 18.2 H Lymph % (Auto) Wallace % (Auto) Lymph # (Auto) Wallace # (Auto) Seg Neutrophils % Seg Neuts % (Manual) 87.0 H Lymphocytes % (Manual) 5.0 L Monocytes % (Manual) Nucleated RBC % Seg Neutrophils # Seg Neutrophils # Man 19.8 H Lymphocytes # (Manual) 1.1 L Monocytes # (Manual) 1.6 H PT INR D-Dimer ABG pH POC ABG pCO2 POC ABG pO2 ABG pO2 ABG HCO3 ABG Base Excess ABG Hemoglobin ABG Oxyhemoglobin ABG Sodium ABG Potassium ABG Chloride ABG Glucose Carboxyhemoglobin Sodium Potassium Chloride Carbon Dioxide BUN Creatinine Glucose POC Glucose 149 H 153 H Lactic Acid Uric Acid Calcium Phosphorus Ferritin Total Bilirubin Direct Bilirubin AST ALT Lactate Dehydrogenase Total Creatine Kinase Troponin T Total Protein Albumin Triglycerides Arterial Blood Glucose Arterial Blood Ionized Calcium Urine pH Urine WBC (Auto) Urine Creatinine Salicylates Acetaminophen Coronavirus (PCR) Crossmatch 09/19/20 09/19/20 09/19/20 05:13 05:25 11:56 WBC RBC Hgb Hct MCHC RDW Lymph % (Auto) Wallace % (Auto) Lymph # (Auto) Wallace # (Auto) Seg Neutrophils % Seg Neuts % (Manual) Lymphocytes % (Manual) Monocytes % (Manual) Nucleated RBC % Seg Neutrophils # Seg Neutrophils # Man Lymphocytes # (Manual) Monocytes # (Manual) PT INR D-Dimer ABG pH POC ABG pCO2 POC ABG pO2 ABG pO2 ABG HCO3 ABG Base Excess ABG Hemoglobin ABG Oxyhemoglobin ABG Sodium ABG Potassium ABG Chloride ABG Glucose Carboxyhemoglobin Sodium Potassium Chloride Carbon Dioxide BUN 55 H Creatinine 2.3 H Glucose 196 H POC Glucose 168 H 137 H Lactic Acid Uric Acid Calcium Phosphorus Ferritin Total Bilirubin Direct Bilirubin AST ALT Lactate Dehydrogenase Total Creatine Kinase Troponin T Total Protein Albumin Triglycerides Arterial Blood Glucose Arterial Blood Ionized Calcium Urine pH Urine WBC (Auto) Urine Creatinine Salicylates Acetaminophen Coronavirus (PCR) Crossmatch 09/19/20 09/19/20 09/20/20 17:43 23:43 05:02 WBC RBC Hgb Hct MCHC RDW Lymph % (Auto) Wallace % (Auto) Lymph # (Auto) Wallace # (Auto) Seg Neutrophils % Seg Neuts % (Manual) Lymphocytes % (Manual) Monocytes % (Manual) Nucleated RBC % Seg Neutrophils # Seg Neutrophils # Man Lymphocytes # (Manual) Monocytes # (Manual) PT INR D-Dimer ABG pH POC ABG pCO2 POC ABG pO2 ABG pO2 ABG HCO3 ABG Base Excess ABG Hemoglobin ABG Oxyhemoglobin ABG Sodium ABG Potassium ABG Chloride ABG Glucose Carboxyhemoglobin Sodium Potassium Chloride Carbon Dioxide BUN Creatinine Glucose POC Glucose 114 H 136 H 163 H Lactic Acid Uric Acid Calcium Phosphorus Ferritin Total Bilirubin Direct Bilirubin AST ALT Lactate Dehydrogenase Total Creatine Kinase Troponin T Total Protein Albumin Triglycerides Arterial Blood Glucose Arterial Blood Ionized Calcium Urine pH Urine WBC (Auto) Urine Creatinine Salicylates Acetaminophen Coronavirus (PCR) Crossmatch 09/20/20 09/20/20 09/20/20 05:36 05:36 11:10 WBC 20.1 H RBC 3.07 L Hgb 8.5 L Hct 26.4 L MCHC RDW 18.6 H Lymph % (Auto) 9.6 L Wallace % (Auto) 9.6 H Lymph # (Auto) Wallace # (Auto) 1.9 H Seg Neutrophils % 79.0 H Seg Neuts % (Manual) Lymphocytes % (Manual) Monocytes % (Manual) Nucleated RBC % Seg Neutrophils # 15.9 H Seg Neutrophils # Man Lymphocytes # (Manual) Monocytes # (Manual) PT INR D-Dimer ABG pH POC ABG pCO2 POC ABG pO2 ABG pO2 ABG HCO3 ABG Base Excess ABG Hemoglobin ABG Oxyhemoglobin ABG Sodium ABG Potassium ABG Chloride ABG Glucose Carboxyhemoglobin Sodium Potassium 3.3 L Chloride Carbon Dioxide BUN 76 H Creatinine 3.6 H D Glucose 213 H POC Glucose 167 H Lactic Acid Uric Acid Calcium Phosphorus Ferritin Total Bilirubin Direct Bilirubin AST ALT Lactate Dehydrogenase Total Creatine Kinase Troponin T Total Protein Albumin Triglycerides Arterial Blood Glucose Arterial Blood Ionized Calcium Urine pH Urine WBC (Auto) Urine Creatinine Salicylates Acetaminophen Coronavirus (PCR) Crossmatch 09/20/20 09/20/20 09/20/20 14:02 17:24 23:30 WBC RBC Hgb Hct MCHC RDW Lymph % (Auto) Wallace % (Auto) Lymph # (Auto) Wallace # (Auto) Seg Neutrophils % Seg Neuts % (Manual) Lymphocytes % (Manual) Monocytes % (Manual) Nucleated RBC % Seg Neutrophils # Seg Neutrophils # Man Lymphocytes # (Manual) Monocytes # (Manual) PT INR D-Dimer ABG pH POC ABG pCO2 POC ABG pO2 ABG pO2 ABG HCO3 ABG Base Excess ABG Hemoglobin ABG Oxyhemoglobin ABG Sodium ABG Potassium ABG Chloride ABG Glucose Carboxyhemoglobin Sodium Potassium Chloride Carbon Dioxide BUN Creatinine Glucose POC Glucose 164 H 146 H 147 H Lactic Acid Uric Acid Calcium Phosphorus Ferritin Total Bilirubin Direct Bilirubin AST ALT Lactate Dehydrogenase Total Creatine Kinase Troponin T Total Protein Albumin Triglycerides Arterial Blood Glucose Arterial Blood Ionized Calcium Urine pH Urine WBC (Auto) Urine Creatinine Salicylates Acetaminophen Coronavirus (PCR) Crossmatch 09/21/20 09/21/20 09/21/20 05:00 05:00 05:24 WBC 17.4 H RBC 2.95 L Hgb 8.3 L Hct 25.8 L MCHC RDW 19.3 H Lymph % (Auto) 11.1 L Wallace % (Auto) 11.1 H Lymph # (Auto) Wallace # (Auto) 1.9 H Seg Neutrophils % 75.9 H Seg Neuts % (Manual) Lymphocytes % (Manual) Monocytes % (Manual) Nucleated RBC % Seg Neutrophils # 13.2 H Seg Neutrophils # Man Lymphocytes # (Manual) Monocytes # (Manual) PT INR D-Dimer ABG pH POC ABG pCO2 POC ABG pO2 ABG pO2 ABG HCO3 ABG Base Excess ABG Hemoglobin ABG Oxyhemoglobin ABG Sodium ABG Potassium ABG Chloride ABG Glucose Carboxyhemoglobin Sodium Potassium Chloride Carbon Dioxide BUN 60 H Creatinine 3.5 H Glucose 185 H POC Glucose 139 H Lactic Acid Uric Acid Calcium Phosphorus Ferritin Total Bilirubin Direct Bilirubin AST ALT Lactate Dehydrogenase Total Creatine Kinase Troponin T Total Protein Albumin Triglycerides Arterial Blood Glucose Arterial Blood Ionized Calcium Urine pH Urine WBC (Auto) Urine Creatinine Salicylates Acetaminophen Coronavirus (PCR) Crossmatch 09/21/20 09/21/20 09/21/20 11:59 17:59 23:32 WBC RBC Hgb Hct MCHC RDW Lymph % (Auto) Wallace % (Auto) Lymph # (Auto) Wallace # (Auto) Seg Neutrophils % Seg Neuts % (Manual) Lymphocytes % (Manual) Monocytes % (Manual) Nucleated RBC % Seg Neutrophils # Seg Neutrophils # Man Lymphocytes # (Manual) Monocytes # (Manual) PT INR D-Dimer ABG pH POC ABG pCO2 POC ABG pO2 ABG pO2 ABG HCO3 ABG Base Excess ABG Hemoglobin ABG Oxyhemoglobin ABG Sodium ABG Potassium ABG Chloride ABG Glucose Carboxyhemoglobin Sodium Potassium Chloride Carbon Dioxide BUN Creatinine Glucose POC Glucose 183 H 141 H 162 H Lactic Acid Uric Acid Calcium Phosphorus Ferritin Total Bilirubin Direct Bilirubin AST ALT Lactate Dehydrogenase Total Creatine Kinase Troponin T Total Protein Albumin Triglycerides Arterial Blood Glucose Arterial Blood Ionized Calcium Urine pH Urine WBC (Auto) Urine Creatinine Salicylates Acetaminophen Coronavirus (PCR) Crossmatch 09/22/20 09/22/20 09/22/20 05:32 12:07 17:53 WBC RBC Hgb Hct MCHC RDW Lymph % (Auto) Wallace % (Auto) Lymph # (Auto) Wallace # (Auto) Seg Neutrophils % Seg Neuts % (Manual) Lymphocytes % (Manual) Monocytes % (Manual) Nucleated RBC % Seg Neutrophils # Seg Neutrophils # Man Lymphocytes # (Manual) Monocytes # (Manual) PT INR D-Dimer ABG pH POC ABG pCO2 POC ABG pO2 ABG pO2 ABG HCO3 ABG Base Excess ABG Hemoglobin ABG Oxyhemoglobin ABG Sodium ABG Potassium ABG Chloride ABG Glucose Carboxyhemoglobin Sodium Potassium Chloride Carbon Dioxide BUN Creatinine Glucose POC Glucose 172 H 169 H 178 H Lactic Acid Uric Acid Calcium Phosphorus Ferritin Total Bilirubin Direct Bilirubin AST ALT Lactate Dehydrogenase Total Creatine Kinase Troponin T Total Protein Albumin Triglycerides Arterial Blood Glucose Arterial Blood Ionized Calcium Urine pH Urine WBC (Auto) Urine Creatinine Salicylates Acetaminophen Coronavirus (PCR) Crossmatch 09/22/20 09/23/20 09/23/20 23:34 05:21 06:05 WBC RBC Hgb Hct MCHC RDW Lymph % (Auto) Wallace % (Auto) Lymph # (Auto) Wallace # (Auto) Seg Neutrophils % Seg Neuts % (Manual) Lymphocytes % (Manual) Monocytes % (Manual) Nucleated RBC % Seg Neutrophils # Seg Neutrophils # Man Lymphocytes # (Manual) Monocytes # (Manual) PT INR D-Dimer ABG pH POC ABG pCO2 POC ABG pO2 ABG pO2 ABG HCO3 ABG Base Excess ABG Hemoglobin ABG Oxyhemoglobin ABG Sodium ABG Potassium ABG Chloride ABG Glucose Carboxyhemoglobin Sodium 147 H Potassium Chloride 109.2 H Carbon Dioxide 21 L BUN 54 H Creatinine 4.2 H Glucose 193 H POC Glucose 151 H 168 H Lactic Acid Uric Acid Calcium Phosphorus Ferritin Total Bilirubin Direct Bilirubin AST ALT Lactate Dehydrogenase Total Creatine Kinase Troponin T Total Protein Albumin Triglycerides Arterial Blood Glucose Arterial Blood Ionized Calcium Urine pH Urine WBC (Auto) Urine Creatinine Salicylates Acetaminophen Coronavirus (PCR) Crossmatch 09/23/20 09/23/20 09/23/20 12:30 17:52 23:16 WBC RBC Hgb Hct MCHC RDW Lymph % (Auto) Wallace % (Auto) Lymph # (Auto) Wallace # (Auto) Seg Neutrophils % Seg Neuts % (Manual) Lymphocytes % (Manual) Monocytes % (Manual) Nucleated RBC % Seg Neutrophils # Seg Neutrophils # Man Lymphocytes # (Manual) Monocytes # (Manual) PT INR D-Dimer ABG pH POC ABG pCO2 POC ABG pO2 ABG pO2 ABG HCO3 ABG Base Excess ABG Hemoglobin ABG Oxyhemoglobin ABG Sodium ABG Potassium ABG Chloride ABG Glucose Carboxyhemoglobin Sodium Potassium Chloride Carbon Dioxide BUN Creatinine Glucose POC Glucose 170 H 164 H 160 H Lactic Acid Uric Acid Calcium Phosphorus Ferritin Total Bilirubin Direct Bilirubin AST ALT Lactate Dehydrogenase Total Creatine Kinase Troponin T Total Protein Albumin Triglycerides Arterial Blood Glucose Arterial Blood Ionized Calcium Urine pH Urine WBC (Auto) Urine Creatinine Salicylates Acetaminophen Coronavirus (PCR) Crossmatch 09/24/20 09/24/20 09/24/20 05:22 05:44 12:32 WBC RBC Hgb Hct MCHC RDW Lymph % (Auto) Wallace % (Auto) Lymph # (Auto) Wallace # (Auto) Seg Neutrophils % Seg Neuts % (Manual) Lymphocytes % (Manual) Monocytes % (Manual) Nucleated RBC % Seg Neutrophils # Seg Neutrophils # Man Lymphocytes # (Manual) Monocytes # (Manual) PT INR D-Dimer ABG pH POC ABG pCO2 POC ABG pO2 ABG pO2 ABG HCO3 ABG Base Excess ABG Hemoglobin ABG Oxyhemoglobin ABG Sodium ABG Potassium ABG Chloride ABG Glucose Carboxyhemoglobin Sodium 148 H Potassium Chloride 109.2 H Carbon Dioxide BUN 61 H Creatinine 4.9 H Glucose 176 H POC Glucose 150 H 165 H Lactic Acid Uric Acid Calcium Phosphorus Ferritin Total Bilirubin Direct Bilirubin AST ALT Lactate Dehydrogenase Total Creatine Kinase Troponin T Total Protein Albumin Triglycerides Arterial Blood Glucose Arterial Blood Ionized Calcium Urine pH Urine WBC (Auto) Urine Creatinine Salicylates Acetaminophen Coronavirus (PCR) Crossmatch 09/24/20 09/24/20 09/25/20 17:28 23:18 05:18 WBC RBC Hgb Hct MCHC RDW Lymph % (Auto) Wallace % (Auto) Lymph # (Auto) Wallace # (Auto) Seg Neutrophils % Seg Neuts % (Manual) Lymphocytes % (Manual) Monocytes % (Manual) Nucleated RBC % Seg Neutrophils # Seg Neutrophils # Man Lymphocytes # (Manual) Monocytes # (Manual) PT INR D-Dimer ABG pH POC ABG pCO2 POC ABG pO2 ABG pO2 ABG HCO3 ABG Base Excess ABG Hemoglobin ABG Oxyhemoglobin ABG Sodium ABG Potassium ABG Chloride ABG Glucose Carboxyhemoglobin Sodium 149 H Potassium 3.3 L Chloride 109.6 H Carbon Dioxide BUN 70 H Creatinine 5.6 H Glucose 196 H POC Glucose 153 H 177 H Lactic Acid Uric Acid Calcium Phosphorus Ferritin Total Bilirubin Direct Bilirubin AST 55 H ALT 74 H Lactate Dehydrogenase Total Creatine Kinase Troponin T Total Protein Albumin 2.6 L Triglycerides Arterial Blood Glucose Arterial Blood Ionized Calcium Urine pH Urine WBC (Auto) Urine Creatinine Salicylates Acetaminophen Coronavirus (PCR) Crossmatch 09/25/20 09/25/20 09/25/20 05:18 11:47 17:04 WBC RBC Hgb Hct MCHC RDW Lymph % (Auto) Wallace % (Auto) Lymph # (Auto) Wallace # (Auto) Seg Neutrophils % Seg Neuts % (Manual) Lymphocytes % (Manual) Monocytes % (Manual) Nucleated RBC % Seg Neutrophils # Seg Neutrophils # Man Lymphocytes # (Manual) Monocytes # (Manual) PT INR D-Dimer ABG pH POC ABG pCO2 POC ABG pO2 ABG pO2 ABG HCO3 ABG Base Excess ABG Hemoglobin ABG Oxyhemoglobin ABG Sodium ABG Potassium ABG Chloride ABG Glucose Carboxyhemoglobin Sodium Potassium Chloride Carbon Dioxide BUN Creatinine Glucose POC Glucose 159 H 169 H 142 H Lactic Acid Uric Acid Calcium Phosphorus Ferritin Total Bilirubin Direct Bilirubin AST ALT Lactate Dehydrogenase Total Creatine Kinase Troponin T Total Protein Albumin Triglycerides Arterial Blood Glucose Arterial Blood Ionized Calcium Urine pH Urine WBC (Auto) Urine Creatinine Salicylates Acetaminophen Coronavirus (PCR) Crossmatch 09/25/20 09/26/20 09/26/20 23:20 04:00 05:00 WBC RBC 2.93 L Hgb 8.5 L Hct 25.8 L MCHC RDW 18.5 H Lymph % (Auto) Wallace % (Auto) 11.3 H Lymph # (Auto) Wallace # (Auto) 1.1 H Seg Neutrophils % 72.0 H Seg Neuts % (Manual) Lymphocytes % (Manual) Monocytes % (Manual) Nucleated RBC % Seg Neutrophils # Seg Neutrophils # Man Lymphocytes # (Manual) Monocytes # (Manual) PT INR D-Dimer ABG pH POC ABG pCO2 POC ABG pO2 ABG pO2 ABG HCO3 ABG Base Excess ABG Hemoglobin ABG Oxyhemoglobin ABG Sodium ABG Potassium ABG Chloride ABG Glucose Carboxyhemoglobin Sodium Potassium 3.4 L Chloride Carbon Dioxide BUN 49 H Creatinine 4.4 H Glucose 179 H POC Glucose 138 H Lactic Acid Uric Acid Calcium Phosphorus Ferritin Total Bilirubin Direct Bilirubin AST ALT Lactate Dehydrogenase Total Creatine Kinase Troponin T Total Protein Albumin Triglycerides Arterial Blood Glucose Arterial Blood Ionized Calcium Urine pH Urine WBC (Auto) Urine Creatinine Salicylates Acetaminophen Coronavirus (PCR) Crossmatch 09/26/20 09/26/20 09/26/20 05:18 11:59 17:37 WBC RBC Hgb Hct MCHC RDW Lymph % (Auto) Wallace % (Auto) Lymph # (Auto) Wallace # (Auto) Seg Neutrophils % Seg Neuts % (Manual) Lymphocytes % (Manual) Monocytes % (Manual) Nucleated RBC % Seg Neutrophils # Seg Neutrophils # Man Lymphocytes # (Manual) Monocytes # (Manual) PT INR D-Dimer ABG pH POC ABG pCO2 POC ABG pO2 ABG pO2 ABG HCO3 ABG Base Excess ABG Hemoglobin ABG Oxyhemoglobin ABG Sodium ABG Potassium ABG Chloride ABG Glucose Carboxyhemoglobin Sodium Potassium Chloride Carbon Dioxide BUN Creatinine Glucose POC Glucose 155 H 165 H 132 H Lactic Acid Uric Acid Calcium Phosphorus Ferritin Total Bilirubin Direct Bilirubin AST ALT Lactate Dehydrogenase Total Creatine Kinase Troponin T Total Protein Albumin Triglycerides Arterial Blood Glucose Arterial Blood Ionized Calcium Urine pH Urine WBC (Auto) Urine Creatinine Salicylates Acetaminophen Coronavirus (PCR) Crossmatch 09/26/20 09/27/20 09/27/20 23:35 04:47 04:47 WBC RBC 3.24 L Hgb 9.3 L Hct 28.6 L MCHC RDW 18.2 H Lymph % (Auto) Wallace % (Auto) 11.6 H Lymph # (Auto) Wallace # (Auto) 1.0 H Seg Neutrophils % Seg Neuts % (Manual) Lymphocytes % (Manual) Monocytes % (Manual) Nucleated RBC % Seg Neutrophils # Seg Neutrophils # Man Lymphocytes # (Manual) Monocytes # (Manual) PT INR D-Dimer ABG pH POC ABG pCO2 POC ABG pO2 ABG pO2 ABG HCO3 ABG Base Excess ABG Hemoglobin ABG Oxyhemoglobin ABG Sodium ABG Potassium ABG Chloride ABG Glucose Carboxyhemoglobin Sodium Potassium Chloride Carbon Dioxide BUN 54 H Creatinine 4.7 H Glucose 218 H POC Glucose 180 H Lactic Acid Uric Acid Calcium Phosphorus Ferritin Total Bilirubin Direct Bilirubin AST ALT Lactate Dehydrogenase Total Creatine Kinase Troponin T Total Protein Albumin Triglycerides Arterial Blood Glucose Arterial Blood Ionized Calcium Urine pH Urine WBC (Auto) Urine Creatinine Salicylates Acetaminophen Coronavirus (PCR) Crossmatch 09/27/20 09/27/20 09/27/20 05:14 11:49 17:48 WBC RBC Hgb Hct MCHC RDW Lymph % (Auto) Wallace % (Auto) Lymph # (Auto) Wallace # (Auto) Seg Neutrophils % Seg Neuts % (Manual) Lymphocytes % (Manual) Monocytes % (Manual) Nucleated RBC % Seg Neutrophils # Seg Neutrophils # Man Lymphocytes # (Manual) Monocytes # (Manual) PT INR D-Dimer ABG pH POC ABG pCO2 POC ABG pO2 ABG pO2 ABG HCO3 ABG Base Excess ABG Hemoglobin ABG Oxyhemoglobin ABG Sodium ABG Potassium ABG Chloride ABG Glucose Carboxyhemoglobin Sodium Potassium Chloride Carbon Dioxide BUN Creatinine Glucose POC Glucose 197 H 219 H 203 H Lactic Acid Uric Acid Calcium Phosphorus Ferritin Total Bilirubin Direct Bilirubin AST ALT Lactate Dehydrogenase Total Creatine Kinase Troponin T Total Protein Albumin Triglycerides Arterial Blood Glucose Arterial Blood Ionized Calcium Urine pH Urine WBC (Auto) Urine Creatinine Salicylates Acetaminophen Coronavirus (PCR) Crossmatch 09/27/20 09/28/20 09/28/20 23:26 05:28 07:02 WBC RBC Hgb Hct MCHC RDW Lymph % (Auto) Wallace % (Auto) Lymph # (Auto) Wallace # (Auto) Seg Neutrophils % Seg Neuts % (Manual) Lymphocytes % (Manual) Monocytes % (Manual) Nucleated RBC % Seg Neutrophils # Seg Neutrophils # Man Lymphocytes # (Manual) Monocytes # (Manual) PT INR D-Dimer ABG pH POC ABG pCO2 POC ABG pO2 ABG pO2 ABG HCO3 ABG Base Excess ABG Hemoglobin ABG Oxyhemoglobin ABG Sodium ABG Potassium ABG Chloride ABG Glucose Carboxyhemoglobin Sodium Potassium Chloride Carbon Dioxide BUN 37 H Creatinine 3.8 H Glucose 270 H POC Glucose 243 H 227 H Lactic Acid Uric Acid Calcium Phosphorus Ferritin Total Bilirubin Direct Bilirubin AST ALT Lactate Dehydrogenase Total Creatine Kinase Troponin T Total Protein Albumin Triglycerides Arterial Blood Glucose Arterial Blood Ionized Calcium Urine pH Urine WBC (Auto) Urine Creatinine Salicylates Acetaminophen Coronavirus (PCR) Crossmatch 09/28/20 09/28/20 09/28/20 07:02 11:35 17:44 WBC RBC 3.26 L Hgb 9.3 L Hct 28.7 L MCHC RDW 18.5 H Lymph % (Auto) Wallace % (Auto) 12.7 H Lymph # (Auto) Wallace # (Auto) 1.1 H Seg Neutrophils % Seg Neuts % (Manual) Lymphocytes % (Manual) Monocytes % (Manual) Nucleated RBC % Seg Neutrophils # Seg Neutrophils # Man Lymphocytes # (Manual) Monocytes # (Manual) PT INR D-Dimer ABG pH POC ABG pCO2 POC ABG pO2 ABG pO2 ABG HCO3 ABG Base Excess ABG Hemoglobin ABG Oxyhemoglobin ABG Sodium ABG Potassium ABG Chloride ABG Glucose Carboxyhemoglobin Sodium Potassium Chloride Carbon Dioxide BUN Creatinine Glucose POC Glucose 230 H 237 H Lactic Acid Uric Acid Calcium Phosphorus Ferritin Total Bilirubin Direct Bilirubin AST ALT Lactate Dehydrogenase Total Creatine Kinase Troponin T Total Protein Albumin Triglycerides Arterial Blood Glucose Arterial Blood Ionized Calcium Urine pH Urine WBC (Auto) Urine Creatinine Salicylates Acetaminophen Coronavirus (PCR) Crossmatch 09/28/20 09/29/20 09/29/20 23:52 05:11 05:20 WBC RBC Hgb Hct MCHC RDW Lymph % (Auto) Wallace % (Auto) Lymph # (Auto) Wallace # (Auto) Seg Neutrophils % Seg Neuts % (Manual) Lymphocytes % (Manual) Monocytes % (Manual) Nucleated RBC % Seg Neutrophils # Seg Neutrophils # Man Lymphocytes # (Manual) Monocytes # (Manual) PT INR D-Dimer ABG pH POC ABG pCO2 POC ABG pO2 ABG pO2 ABG HCO3 ABG Base Excess ABG Hemoglobin ABG Oxyhemoglobin ABG Sodium ABG Potassium ABG Chloride ABG Glucose Carboxyhemoglobin Sodium Potassium Chloride Carbon Dioxide BUN 47 H Creatinine 4.2 H Glucose 289 H POC Glucose 261 H 254 H Lactic Acid Uric Acid Calcium Phosphorus Ferritin Total Bilirubin Direct Bilirubin AST ALT Lactate Dehydrogenase Total Creatine Kinase Troponin T Total Protein Albumin Triglycerides Arterial Blood Glucose Arterial Blood Ionized Calcium Urine pH Urine WBC (Auto) Urine Creatinine Salicylates Acetaminophen Coronavirus (PCR) Crossmatch 09/29/20 09/29/20 09/29/20 05:20 11:55 17:13 WBC RBC 3.23 L Hgb 9.0 L Hct 27.7 L MCHC RDW 18.3 H Lymph % (Auto) 13.0 L Wallace % (Auto) 13.8 H Lymph # (Auto) Wallace # (Auto) 1.5 H Seg Neutrophils % 72.3 H Seg Neuts % (Manual) Lymphocytes % (Manual) Monocytes % (Manual) Nucleated RBC % Seg Neutrophils # Seg Neutrophils # Man Lymphocytes # (Manual) Monocytes # (Manual) PT INR D-Dimer ABG pH POC ABG pCO2 POC ABG pO2 ABG pO2 ABG HCO3 ABG Base Excess ABG Hemoglobin ABG Oxyhemoglobin ABG Sodium ABG Potassium ABG Chloride ABG Glucose Carboxyhemoglobin Sodium Potassium Chloride Carbon Dioxide BUN Creatinine Glucose POC Glucose 263 H 279 H Lactic Acid Uric Acid Calcium Phosphorus Ferritin Total Bilirubin Direct Bilirubin AST ALT Lactate Dehydrogenase Total Creatine Kinase Troponin T Total Protein Albumin Triglycerides Arterial Blood Glucose Arterial Blood Ionized Calcium Urine pH Urine WBC (Auto) Urine Creatinine Salicylates Acetaminophen Coronavirus (PCR) Crossmatch 09/29/20 09/30/20 09/30/20 23:25 05:15 06:57 WBC RBC 3.14 L Hgb 9.0 L Hct 27.4 L MCHC RDW 18.5 H Lymph % (Auto) Wallace % (Auto) Lymph # (Auto) Wallace # (Auto) Seg Neutrophils % Seg Neuts % (Manual) Lymphocytes % (Manual) Monocytes % (Manual) 13.0 H Nucleated RBC % Seg Neutrophils # Seg Neutrophils # Man Lymphocytes # (Manual) Monocytes # (Manual) 1.1 H PT INR D-Dimer ABG pH POC ABG pCO2 POC ABG pO2 ABG pO2 ABG HCO3 ABG Base Excess ABG Hemoglobin ABG Oxyhemoglobin ABG Sodium ABG Potassium ABG Chloride ABG Glucose Carboxyhemoglobin Sodium Potassium Chloride Carbon Dioxide BUN Creatinine Glucose POC Glucose 284 H 283 H Lactic Acid Uric Acid Calcium Phosphorus Ferritin Total Bilirubin Direct Bilirubin AST ALT Lactate Dehydrogenase Total Creatine Kinase Troponin T Total Protein Albumin Triglycerides Arterial Blood Glucose Arterial Blood Ionized Calcium Urine pH Urine WBC (Auto) Urine Creatinine Salicylates Acetaminophen Coronavirus (PCR) Crossmatch 09/30/20 09/30/20 09/30/20 11:54 17:28 23:34 WBC RBC Hgb Hct MCHC RDW Lymph % (Auto) Wallace % (Auto) Lymph # (Auto) Wallace # (Auto) Seg Neutrophils % Seg Neuts % (Manual) Lymphocytes % (Manual) Monocytes % (Manual) Nucleated RBC % Seg Neutrophils # Seg Neutrophils # Man Lymphocytes # (Manual) Monocytes # (Manual) PT INR D-Dimer ABG pH POC ABG pCO2 POC ABG pO2 ABG pO2 ABG HCO3 ABG Base Excess ABG Hemoglobin ABG Oxyhemoglobin ABG Sodium ABG Potassium ABG Chloride ABG Glucose Carboxyhemoglobin Sodium Potassium Chloride Carbon Dioxide BUN Creatinine Glucose POC Glucose 288 H 262 H 258 H Lactic Acid Uric Acid Calcium Phosphorus Ferritin Total Bilirubin Direct Bilirubin AST ALT Lactate Dehydrogenase Total Creatine Kinase Troponin T Total Protein Albumin Triglycerides Arterial Blood Glucose Arterial Blood Ionized Calcium Urine pH Urine WBC (Auto) Urine Creatinine Salicylates Acetaminophen Coronavirus (PCR) Crossmatch 10/01/20 10/01/20 10/01/20 04:33 04:49 05:30 WBC RBC 2.87 L Hgb 8.2 L Hct 24.9 L MCHC RDW 18.2 H Lymph % (Auto) Wallace % (Auto) Lymph # (Auto) Wallace # (Auto) 1.2 H Seg Neutrophils % Seg Neuts % (Manual) Lymphocytes % (Manual) Monocytes % (Manual) Nucleated RBC % Seg Neutrophils # Seg Neutrophils # Man Lymphocytes # (Manual) Monocytes # (Manual) PT INR D-Dimer ABG pH POC ABG pCO2 POC ABG pO2 ABG pO2 ABG HCO3 ABG Base Excess ABG Hemoglobin 10.0 L ABG Oxyhemoglobin ABG Sodium ABG Potassium ABG Chloride ABG Glucose 270 H Carboxyhemoglobin Sodium Potassium Chloride Carbon Dioxide BUN Creatinine Glucose POC Glucose 219 H Lactic Acid Uric Acid Calcium Phosphorus Ferritin Total Bilirubin Direct Bilirubin AST ALT Lactate Dehydrogenase Total Creatine Kinase Troponin T Total Protein Albumin Triglycerides Arterial Blood Glucose 270 H Arterial Blood Ionized Calcium Urine pH Urine WBC (Auto) Urine Creatinine Salicylates Acetaminophen Coronavirus (PCR) Crossmatch 10/01/20 10/01/20 10/01/20 12:10 16:32 23:36 WBC RBC Hgb Hct MCHC RDW Lymph % (Auto) Wallace % (Auto) Lymph # (Auto) Wallace # (Auto) Seg Neutrophils % Seg Neuts % (Manual) Lymphocytes % (Manual) Monocytes % (Manual) Nucleated RBC % Seg Neutrophils # Seg Neutrophils # Man Lymphocytes # (Manual) Monocytes # (Manual) PT INR D-Dimer ABG pH POC ABG pCO2 POC ABG pO2 ABG pO2 ABG HCO3 ABG Base Excess ABG Hemoglobin ABG Oxyhemoglobin ABG Sodium ABG Potassium ABG Chloride ABG Glucose Carboxyhemoglobin Sodium Potassium Chloride Carbon Dioxide BUN Creatinine Glucose POC Glucose 266 H 259 H 262 H Lactic Acid Uric Acid Calcium Phosphorus Ferritin Total Bilirubin Direct Bilirubin AST ALT Lactate Dehydrogenase Total Creatine Kinase Troponin T Total Protein Albumin Triglycerides Arterial Blood Glucose Arterial Blood Ionized Calcium Urine pH Urine WBC (Auto) Urine Creatinine Salicylates Acetaminophen Coronavirus (PCR) Crossmatch 10/02/20 10/02/20 10/02/20 00:58 05:29 10:16 WBC RBC Hgb Hct MCHC RDW Lymph % (Auto) Wallace % (Auto) Lymph # (Auto) [place] # (Auto) Seg Neutrophils % Seg Neuts % (Manual) Lymphocytes % (Manual) Monocytes % (Manual) Nucleated RBC % Seg Neutrophils # Seg Neutrophils # Man Lymphocytes # (Manual) Monocytes # (Manual) PT INR D-Dimer ABG pH 7.468 H POC ABG pCO2 POC ABG pO2 72.9 L ABG pO2 ABG HCO3 ABG Base Excess ABG Hemoglobin 10.1 L ABG Oxyhemoglobin 93.1 L ABG Sodium ABG Potassium ABG Chloride 108.0 H ABG Glucose 289 H Carboxyhemoglobin Sodium Potassium Chloride Carbon Dioxide BUN 58 H Creatinine 5.0 H Glucose 324 H POC Glucose 260 H Lactic Acid Uric Acid Calcium Phosphorus Ferritin Total Bilirubin Direct Bilirubin AST ALT Lactate Dehydrogenase Total Creatine Kinase Troponin T Total Protein Albumin Triglycerides Arterial Blood Glucose 289 H Arterial Blood Ionized Calcium Urine pH Urine WBC (Auto) Urine Creatinine Salicylates Acetaminophen Coronavirus (PCR) Crossmatch 10/02/20 10/02/20 10/03/20 11:29 17:55 00:11 WBC RBC Hgb Hct MCHC RDW Lymph % (Auto) Wallace % (Auto) Lymph # (Auto) Wallace # (Auto) Seg Neutrophils % Seg Neuts % (Manual) Lymphocytes % (Manual) Monocytes % (Manual) Nucleated RBC % Seg Neutrophils # Seg Neutrophils # Man Lymphocytes # (Manual) Monocytes # (Manual) PT INR D-Dimer ABG pH POC ABG pCO2 POC ABG pO2 ABG pO2 ABG HCO3 ABG Base Excess ABG Hemoglobin ABG Oxyhemoglobin ABG Sodium ABG Potassium ABG Chloride ABG Glucose Carboxyhemoglobin Sodium Potassium Chloride Carbon Dioxide BUN Creatinine Glucose POC Glucose 268 H 210 H 172 H Lactic Acid Uric Acid Calcium Phosphorus Ferritin Total Bilirubin Direct Bilirubin AST ALT Lactate Dehydrogenase Total Creatine Kinase Troponin T Total Protein Albumin Triglycerides Arterial Blood Glucose Arterial Blood Ionized Calcium Urine pH Urine WBC (Auto) Urine Creatinine Salicylates Acetaminophen Coronavirus (PCR) Crossmatch 10/03/20 10/03/20 10/03/20 06:01 12:13 12:21 WBC RBC Hgb Hct MCHC RDW Lymph % (Auto) Wallace % (Auto) Lymph # (Auto) [place] # (Auto) Seg Neutrophils % Seg Neuts % (Manual) Lymphocytes % (Manual) Monocytes % (Manual) Nucleated RBC % Seg Neutrophils # Seg Neutrophils # Man Lymphocytes # (Manual) Monocytes # (Manual) PT INR D-Dimer ABG pH POC ABG pCO2 POC ABG pO2 ABG pO2 ABG HCO3 ABG Base Excess ABG Hemoglobin ABG Oxyhemoglobin ABG Sodium ABG Potassium ABG Chloride ABG Glucose Carboxyhemoglobin Sodium 133 L D Potassium Chloride 97.7 L Carbon Dioxide BUN 47 H Creatinine 3.8 H Glucose 345 H POC Glucose 186 H 305 H Lactic Acid Uric Acid Calcium Phosphorus Ferritin Total Bilirubin Direct Bilirubin AST ALT Lactate Dehydrogenase Total Creatine Kinase Troponin T Total Protein Albumin Triglycerides Arterial Blood Glucose Arterial Blood Ionized Calcium Urine pH Urine WBC (Auto) Urine Creatinine Salicylates Acetaminophen Coronavirus (PCR) Crossmatch 10/03/20 10/03/20 10/03/20 16:23 16:57 22:52 WBC RBC Hgb Hct MCHC RDW Lymph % (Auto) Wallace % (Auto) Lymph # (Auto) Wallace # (Auto) Seg Neutrophils % Seg Neuts % (Manual) Lymphocytes % (Manual) Monocytes % (Manual) Nucleated RBC % Seg Neutrophils # Seg Neutrophils # Man Lymphocytes # (Manual) Monocytes # (Manual) PT INR D-Dimer ABG pH POC ABG pCO2 POC ABG pO2 ABG pO2 ABG HCO3 ABG Base Excess ABG Hemoglobin ABG Oxyhemoglobin ABG Sodium ABG Potassium ABG Chloride ABG Glucose Carboxyhemoglobin Sodium Potassium Chloride Carbon Dioxide BUN Creatinine Glucose POC Glucose 248 H 245 H 169 H Lactic Acid Uric Acid Calcium Phosphorus Ferritin Total Bilirubin Direct Bilirubin AST ALT Lactate Dehydrogenase Total Creatine Kinase Troponin T Total Protein Albumin Triglycerides Arterial Blood Glucose Arterial Blood Ionized Calcium Urine pH Urine WBC (Auto) Urine Creatinine Salicylates Acetaminophen Coronavirus (PCR) Crossmatch 10/04/20 10/04/20 10/04/20 01:31 06:31 10:32 WBC RBC 2.65 L Hgb 7.8 L Hct 23.0 L MCHC RDW 18.2 H Lymph % (Auto) Wallace % (Auto) Lymph # (Auto) Wallace # (Auto) Seg Neutrophils % Seg Neuts % (Manual) Lymphocytes % (Manual) Monocytes % (Manual) 14.0 H Nucleated RBC % Seg Neutrophils # Seg Neutrophils # Man Lymphocytes # (Manual) Monocytes # (Manual) 1.2 H PT INR D-Dimer ABG pH POC ABG pCO2 POC ABG pO2 ABG pO2 ABG HCO3 ABG Base Excess ABG Hemoglobin ABG Oxyhemoglobin ABG Sodium ABG Potassium ABG Chloride ABG Glucose Carboxyhemoglobin Sodium 136 L Potassium Chloride Carbon Dioxide BUN 53 H Creatinine 4.6 H Glucose 184 H POC Glucose 200 H Lactic Acid Uric Acid Calcium Phosphorus Ferritin Total Bilirubin Direct Bilirubin AST ALT Lactate Dehydrogenase Total Creatine Kinase Troponin T Total Protein Albumin Triglycerides Arterial Blood Glucose Arterial Blood Ionized Calcium Urine pH Urine WBC (Auto) Urine Creatinine Salicylates Acetaminophen Coronavirus (PCR) Crossmatch 10/04/20 10/04/20 10/04/20 11:47 16:20 23:22 WBC RBC Hgb Hct MCHC RDW Lymph % (Auto) Wallace % (Auto) Lymph # (Auto) Wallace # (Auto) Seg Neutrophils % Seg Neuts % (Manual) Lymphocytes % (Manual) Monocytes % (Manual) Nucleated RBC % Seg Neutrophils # Seg Neutrophils # Man Lymphocytes # (Manual) Monocytes # (Manual) PT INR D-Dimer ABG pH POC ABG pCO2 POC ABG pO2 ABG pO2 ABG HCO3 ABG Base Excess ABG Hemoglobin ABG Oxyhemoglobin ABG Sodium ABG Potassium ABG Chloride ABG Glucose Carboxyhemoglobin Sodium Potassium Chloride Carbon Dioxide BUN Creatinine Glucose POC Glucose 206 H 187 H 249 H Lactic Acid Uric Acid Calcium Phosphorus Ferritin Total Bilirubin Direct Bilirubin AST ALT Lactate Dehydrogenase Total Creatine Kinase Troponin T Total Protein Albumin Triglycerides Arterial Blood Glucose Arterial Blood Ionized Calcium Urine pH Urine WBC (Auto) Urine Creatinine Salicylates Acetaminophen Coronavirus (PCR) Crossmatch 10/05/20 10/05/20 10/05/20 00:19 05:19 09:15 WBC RBC Hgb Hct MCHC RDW Lymph % (Auto) Wallace % (Auto) Lymph # (Auto) Wallace # (Auto) Seg Neutrophils % Seg Neuts % (Manual) Lymphocytes % (Manual) Monocytes % (Manual) Nucleated RBC % Seg Neutrophils # Seg Neutrophils # Man Lymphocytes # (Manual) Monocytes # (Manual) PT INR D-Dimer ABG pH POC ABG pCO2 POC ABG pO2 ABG pO2 ABG HCO3 ABG Base Excess ABG Hemoglobin ABG Oxyhemoglobin ABG Sodium ABG Potassium ABG Chloride ABG Glucose Carboxyhemoglobin Sodium 132 L Potassium Chloride 96.7 L Carbon Dioxide BUN 44 H Creatinine 3.9 H Glucose 252 H POC Glucose 218 H Lactic Acid Uric Acid Calcium Phosphorus Ferritin Total Bilirubin Direct Bilirubin AST ALT Lactate Dehydrogenase Total Creatine Kinase Troponin T Total Protein Albumin Triglycerides Arterial Blood Glucose Arterial Blood Ionized Calcium Urine pH Urine WBC (Auto) 13.0 H Urine Creatinine Salicylates Acetaminophen Coronavirus (PCR) Crossmatch 10/05/20 10/05/20 10/05/20 11:47 17:28 21:07 WBC RBC Hgb Hct MCHC RDW Lymph % (Auto) Wallace % (Auto) Lymph # (Auto) Wallace # (Auto) Seg Neutrophils % Seg Neuts % (Manual) Lymphocytes % (Manual) Monocytes % (Manual) Nucleated RBC % Seg Neutrophils # Seg Neutrophils # Man Lymphocytes # (Manual) Monocytes # (Manual) PT INR D-Dimer ABG pH POC ABG pCO2 POC ABG pO2 ABG pO2 ABG HCO3 ABG Base Excess ABG Hemoglobin ABG Oxyhemoglobin ABG Sodium ABG Potassium ABG Chloride ABG Glucose Carboxyhemoglobin Sodium Potassium Chloride Carbon Dioxide BUN Creatinine Glucose POC Glucose 201 H 244 H 208 H Lactic Acid Uric Acid Calcium Phosphorus Ferritin Total Bilirubin Direct Bilirubin AST ALT Lactate Dehydrogenase Total Creatine Kinase Troponin T Total Protein Albumin Triglycerides Arterial Blood Glucose Arterial Blood Ionized Calcium Urine pH Urine WBC (Auto) Urine Creatinine Salicylates Acetaminophen Coronavirus (PCR) Crossmatch 10/06/20 10/06/20 10/06/20 06:23 07:44 10:12 WBC RBC 2.92 L Hgb 8.4 L Hct 24.7 L MCHC RDW 18.1 H Lymph % (Auto) Wallace % (Auto) Lymph # (Auto) Wallace # (Auto) Seg Neutrophils % Seg Neuts % (Manual) Lymphocytes % (Manual) Monocytes % (Manual) Nucleated RBC % Seg Neutrophils # Seg Neutrophils # Man Lymphocytes # (Manual) Monocytes # (Manual) PT INR D-Dimer ABG pH POC ABG pCO2 POC ABG pO2 ABG pO2 ABG HCO3 ABG Base Excess ABG Hemoglobin ABG Oxyhemoglobin ABG Sodium ABG Potassium ABG Chloride ABG Glucose Carboxyhemoglobin Sodium Potassium Chloride Carbon Dioxide BUN Creatinine Glucose POC Glucose 251 H 280 H Lactic Acid Uric Acid Calcium Phosphorus Ferritin Total Bilirubin Direct Bilirubin AST ALT Lactate Dehydrogenase Total Creatine Kinase Troponin T Total Protein Albumin Triglycerides Arterial Blood Glucose Arterial Blood Ionized Calcium Urine pH Urine WBC (Auto) Urine Creatinine Salicylates Acetaminophen Coronavirus (PCR) Crossmatch 10/06/20 10/06/20 10/06/20 10:12 11:59 16:16 WBC RBC Hgb Hct MCHC RDW Lymph % (Auto) Wallace % (Auto) Lymph # (Auto) Wallace # (Auto) Seg Neutrophils % Seg Neuts % (Manual) Lymphocytes % (Manual) Monocytes % (Manual) Nucleated RBC % Seg Neutrophils # Seg Neutrophils # Man Lymphocytes # (Manual) Monocytes # (Manual) PT INR D-Dimer ABG pH POC ABG pCO2 POC ABG pO2 ABG pO2 ABG HCO3 ABG Base Excess ABG Hemoglobin ABG Oxyhemoglobin ABG Sodium ABG Potassium ABG Chloride ABG Glucose Carboxyhemoglobin Sodium 135 L Potassium Chloride Carbon Dioxide BUN 55 H Creatinine 4.3 H Glucose 304 H POC Glucose 273 H 274 H Lactic Acid Uric Acid Calcium Phosphorus Ferritin Total Bilirubin Direct Bilirubin AST 52 H ALT Lactate Dehydrogenase Total Creatine Kinase Troponin T Total Protein 8.4 H Albumin 2.3 L Triglycerides Arterial Blood Glucose Arterial Blood Ionized Calcium Urine pH Urine WBC (Auto) Urine Creatinine Salicylates Acetaminophen Coronavirus (PCR) Crossmatch 10/07/20 10/07/20 10/07/20 00:13 05:23 05:56 WBC RBC Hgb Hct MCHC RDW Lymph % (Auto) Wallace % (Auto) Lymph # (Auto) Wallace # (Auto) Seg Neutrophils % Seg Neuts % (Manual) Lymphocytes % (Manual) Monocytes % (Manual) Nucleated RBC % Seg Neutrophils # Seg Neutrophils # Man Lymphocytes # (Manual) Monocytes # (Manual) PT INR D-Dimer ABG pH POC ABG pCO2 POC ABG pO2 ABG pO2 ABG HCO3 ABG Base Excess ABG Hemoglobin ABG Oxyhemoglobin ABG Sodium ABG Potassium ABG Chloride ABG Glucose Carboxyhemoglobin Sodium Potassium Chloride Carbon Dioxide BUN Creatinine Glucose POC Glucose 249 H 257 H 270 H Lactic Acid Uric Acid Calcium Phosphorus Ferritin Total Bilirubin Direct Bilirubin AST ALT Lactate Dehydrogenase Total Creatine Kinase Troponin T Total Protein Albumin Triglycerides Arterial Blood Glucose Arterial Blood Ionized Calcium Urine pH Urine WBC (Auto) Urine Creatinine Salicylates Acetaminophen Coronavirus (PCR) Crossmatch 10/07/20 10/07/20 10/08/20 11:41 17:16 00:02 WBC RBC Hgb Hct MCHC RDW Lymph % (Auto) Wallace % (Auto) Lymph # (Auto) Wallace # (Auto) Seg Neutrophils % Seg Neuts % (Manual) Lymphocytes % (Manual) Monocytes % (Manual) Nucleated RBC % Seg Neutrophils # Seg Neutrophils # Man Lymphocytes # (Manual) Monocytes # (Manual) PT INR D-Dimer ABG pH POC ABG pCO2 POC ABG pO2 ABG pO2 ABG HCO3 ABG Base Excess ABG Hemoglobin ABG Oxyhemoglobin ABG Sodium ABG Potassium ABG Chloride ABG Glucose Carboxyhemoglobin Sodium Potassium Chloride Carbon Dioxide BUN Creatinine Glucose POC Glucose 274 H 246 H 234 H Lactic Acid Uric Acid Calcium Phosphorus Ferritin Total Bilirubin Direct Bilirubin AST ALT Lactate Dehydrogenase Total Creatine Kinase Troponin T Total Protein Albumin Triglycerides Arterial Blood Glucose Arterial Blood Ionized Calcium Urine pH Urine WBC (Auto) Urine Creatinine Salicylates Acetaminophen Coronavirus (PCR) Crossmatch 10/08/20 10/08/20 10/08/20 05:51 06:03 11:29 WBC RBC Hgb Hct MCHC RDW Lymph % (Auto) Wallace % (Auto) Lymph # (Auto) Wallace # (Auto) Seg Neutrophils % Seg Neuts % (Manual) Lymphocytes % (Manual) Monocytes % (Manual) Nucleated RBC % Seg Neutrophils # Seg Neutrophils # Man Lymphocytes # (Manual) Monocytes # (Manual) PT INR D-Dimer ABG pH POC ABG pCO2 POC ABG pO2 ABG pO2 ABG HCO3 ABG Base Excess ABG Hemoglobin ABG Oxyhemoglobin ABG Sodium ABG Potassium ABG Chloride ABG Glucose Carboxyhemoglobin Sodium 136 L Potassium Chloride Carbon Dioxide BUN 71 H Creatinine 4.5 H Glucose 240 H POC Glucose 235 H 230 H Lactic Acid Uric Acid Calcium Phosphorus Ferritin Total Bilirubin Direct Bilirubin AST ALT Lactate Dehydrogenase Total Creatine Kinase Troponin T Total Protein Albumin Triglycerides Arterial Blood Glucose Arterial Blood Ionized Calcium Urine pH Urine WBC (Auto) Urine Creatinine Salicylates Acetaminophen Coronavirus (PCR) Crossmatch 10/08/20 10/08/20 10/09/20 15:35 21:38 04:40 WBC RBC Hgb Hct MCHC RDW Lymph % (Auto) Wallace % (Auto) Lymph # (Auto) Wallace # (Auto) Seg Neutrophils % Seg Neuts % (Manual) Lymphocytes % (Manual) Monocytes % (Manual) Nucleated RBC % Seg Neutrophils # Seg Neutrophils # Man Lymphocytes # (Manual) Monocytes # (Manual) PT INR D-Dimer ABG pH POC ABG pCO2 POC ABG pO2 ABG pO2 ABG HCO3 ABG Base Excess ABG Hemoglobin ABG Oxyhemoglobin ABG Sodium ABG Potassium ABG Chloride ABG Glucose Carboxyhemoglobin Sodium 135 L Potassium Chloride 97.9 L Carbon Dioxide BUN 80 H Creatinine 4.6 H Glucose 211 H POC Glucose 263 H 213 H Lactic Acid Uric Acid Calcium Phosphorus Ferritin Total Bilirubin Direct Bilirubin AST ALT Lactate Dehydrogenase Total Creatine Kinase Troponin T Total Protein Albumin Triglycerides Arterial Blood Glucose Arterial Blood Ionized Calcium Urine pH Urine WBC (Auto) Urine Creatinine Salicylates Acetaminophen Coronavirus (PCR) Crossmatch 10/09/20 10/09/20 10/09/20 04:57 09:26 11:30 WBC RBC Hgb Hct MCHC RDW Lymph % (Auto) Wallace % (Auto) Lymph # (Auto) [place] # (Auto) Seg Neutrophils % Seg Neuts % (Manual) Lymphocytes % (Manual) Monocytes % (Manual) Nucleated RBC % Seg Neutrophils # Seg Neutrophils # Man Lymphocytes # (Manual) Monocytes # (Manual) PT INR D-Dimer ABG pH POC ABG pCO2 POC ABG pO2 ABG pO2 ABG HCO3 ABG Base Excess ABG Hemoglobin ABG Oxyhemoglobin ABG Sodium ABG Potassium ABG Chloride ABG Glucose Carboxyhemoglobin Sodium Potassium Chloride Carbon Dioxide BUN Creatinine Glucose POC Glucose 190 H 193 H 240 H Lactic Acid Uric Acid Calcium Phosphorus Ferritin Total Bilirubin Direct Bilirubin AST ALT Lactate Dehydrogenase Total Creatine Kinase Troponin T Total Protein Albumin Triglycerides Arterial Blood Glucose Arterial Blood Ionized Calcium Urine pH Urine WBC (Auto) Urine Creatinine Salicylates Acetaminophen Coronavirus (PCR) Crossmatch 10/09/20 10/09/20 10/10/20 17:21 23:53 05:46 WBC RBC Hgb Hct MCHC RDW Lymph % (Auto) Wallace % (Auto) Lymph # (Auto) [place] # (Auto) Seg Neutrophils % Seg Neuts % (Manual) Lymphocytes % (Manual) Monocytes % (Manual) Nucleated RBC % Seg Neutrophils # Seg Neutrophils # Man Lymphocytes # (Manual) Monocytes # (Manual) PT INR D-Dimer ABG pH POC ABG pCO2 POC ABG pO2 ABG pO2 ABG HCO3 ABG Base Excess ABG Hemoglobin ABG Oxyhemoglobin ABG Sodium ABG Potassium ABG Chloride ABG Glucose Carboxyhemoglobin Sodium 133 L Potassium Chloride 96.3 L Carbon Dioxide BUN 84 H Creatinine 4.6 H Glucose 208 H POC Glucose 217 H 216 H Lactic Acid Uric Acid Calcium Phosphorus Ferritin Total Bilirubin Direct Bilirubin AST ALT Lactate Dehydrogenase Total Creatine Kinase Troponin T Total Protein Albumin Triglycerides Arterial Blood Glucose Arterial Blood Ionized Calcium Urine pH Urine WBC (Auto) Urine Creatinine Salicylates Acetaminophen Coronavirus (PCR) Crossmatch 10/10/20 10/10/20 10/10/20 06:18 09:24 11:03 WBC RBC Hgb Hct MCHC RDW Lymph % (Auto) Wallace % (Auto) Lymph # (Auto) [place] # (Auto) Seg Neutrophils % Seg Neuts % (Manual) Lymphocytes % (Manual) Monocytes % (Manual) Nucleated RBC % Seg Neutrophils # Seg Neutrophils # Man Lymphocytes # (Manual) Monocytes # (Manual) PT INR D-Dimer ABG pH POC ABG pCO2 POC ABG pO2 ABG pO2 ABG HCO3 ABG Base Excess ABG Hemoglobin ABG Oxyhemoglobin ABG Sodium ABG Potassium ABG Chloride ABG Glucose Carboxyhemoglobin Sodium Potassium Chloride Carbon Dioxide BUN Creatinine Glucose POC Glucose 199 H 196 H 236 H Lactic Acid Uric Acid Calcium Phosphorus Ferritin Total Bilirubin Direct Bilirubin AST ALT Lactate Dehydrogenase Total Creatine Kinase Troponin T Total Protein Albumin Triglycerides Arterial Blood Glucose Arterial Blood Ionized Calcium Urine pH Urine WBC (Auto) Urine Creatinine Salicylates Acetaminophen Coronavirus (PCR) Crossmatch 10/10/20 10/10/20 10/11/20 15:18 17:09 00:21 WBC RBC Hgb Hct MCHC RDW Lymph % (Auto) Wallace % (Auto) Lymph # (Auto) [place] # (Auto) Seg Neutrophils % Seg Neuts % (Manual) Lymphocytes % (Manual) Monocytes % (Manual) Nucleated RBC % Seg Neutrophils # Seg Neutrophils # Man Lymphocytes # (Manual) Monocytes # (Manual) PT INR D-Dimer ABG pH POC ABG pCO2 POC ABG pO2 ABG pO2 ABG HCO3 ABG Base Excess ABG Hemoglobin ABG Oxyhemoglobin ABG Sodium ABG Potassium ABG Chloride ABG Glucose Carboxyhemoglobin Sodium Potassium Chloride Carbon Dioxide BUN Creatinine Glucose POC Glucose 254 H 239 H 266 H Lactic Acid Uric Acid Calcium Phosphorus Ferritin Total Bilirubin Direct Bilirubin AST ALT Lactate Dehydrogenase Total Creatine Kinase Troponin T Total Protein Albumin Triglycerides Arterial Blood Glucose Arterial Blood Ionized Calcium Urine pH Urine WBC (Auto) Urine Creatinine Salicylates Acetaminophen Coronavirus (PCR) Crossmatch 10/11/20 10/11/20 10/11/20 03:31 04:50 05:55 WBC RBC Hgb Hct MCHC RDW Lymph % (Auto) [place] % (Auto) Lymph # (Auto) [place] # (Auto) Seg Neutrophils % Seg Neuts % (Manual) Lymphocytes % (Manual) Monocytes % (Manual) Nucleated RBC % Seg Neutrophils # Seg Neutrophils # Man Lymphocytes # (Manual) Monocytes # (Manual) PT INR D-Dimer ABG pH POC ABG pCO2 POC ABG pO2 ABG pO2 ABG HCO3 ABG Base Excess ABG Hemoglobin ABG Oxyhemoglobin ABG Sodium ABG Potassium ABG Chloride ABG Glucose Carboxyhemoglobin Sodium 133 L Potassium Chloride 96.3 L Carbon Dioxide BUN 89 H Creatinine 4.5 H Glucose 251 H POC Glucose 233 H 242 H Lactic Acid Uric Acid Calcium Phosphorus Ferritin Total Bilirubin Direct Bilirubin AST ALT Lactate Dehydrogenase Total Creatine Kinase Troponin T Total Protein Albumin Triglycerides Arterial Blood Glucose Arterial Blood Ionized Calcium Urine pH Urine WBC (Auto) Urine Creatinine Salicylates Acetaminophen Coronavirus (PCR) Crossmatch 10/11/20 10/11/20 10/12/20 13:50 16:06 00:33 WBC RBC Hgb Hct MCHC RDW Lymph % (Auto) Wallace % (Auto) Lymph # (Auto) Wallace # (Auto) Seg Neutrophils % Seg Neuts % (Manual) Lymphocytes % (Manual) Monocytes % (Manual) Nucleated RBC % Seg Neutrophils # Seg Neutrophils # Man Lymphocytes # (Manual) Monocytes # (Manual) PT INR D-Dimer ABG pH POC ABG pCO2 POC ABG pO2 ABG pO2 ABG HCO3 ABG Base Excess ABG Hemoglobin ABG Oxyhemoglobin ABG Sodium ABG Potassium ABG Chloride ABG Glucose Carboxyhemoglobin Sodium Potassium Chloride Carbon Dioxide BUN Creatinine Glucose POC Glucose 228 H 192 H 175 H Lactic Acid Uric Acid Calcium Phosphorus Ferritin Total Bilirubin Direct Bilirubin AST ALT Lactate Dehydrogenase Total Creatine Kinase Troponin T Total Protein Albumin Triglycerides Arterial Blood Glucose Arterial Blood Ionized Calcium Urine pH Urine WBC (Auto) Urine Creatinine Salicylates Acetaminophen Coronavirus (PCR) Crossmatch 10/12/20 10/12/20 10/12/20 04:38 08:36 10:25 WBC 14.1 H RBC 1.58 L Hgb 4.6 L* Hct 13.4 L* MCHC RDW 18.5 H Lymph % (Auto) Wallace % (Auto) Lymph # (Auto) Wallace # (Auto) Seg Neutrophils % Seg Neuts % (Manual) 75.0 H Lymphocytes % (Manual) Monocytes % (Manual) Nucleated RBC % Seg Neutrophils # Seg Neutrophils # Man 10.6 H Lymphocytes # (Manual) Monocytes # (Manual) PT INR D-Dimer ABG pH POC ABG pCO2 POC ABG pO2 ABG pO2 ABG HCO3 ABG Base Excess ABG Hemoglobin ABG Oxyhemoglobin ABG Sodium ABG Potassium ABG Chloride ABG Glucose Carboxyhemoglobin Sodium 131 L Potassium Chloride 94.9 L Carbon Dioxide BUN 98 H Creatinine 5.2 H Glucose 245 H POC Glucose Lactic Acid Uric Acid Calcium Phosphorus Ferritin Total Bilirubin Direct Bilirubin AST ALT Lactate Dehydrogenase Total Creatine Kinase Troponin T Total Protein Albumin Triglycerides Arterial Blood Glucose Arterial Blood Ionized Calcium Urine pH Urine WBC (Auto) 171.0 H Urine Creatinine Salicylates Acetaminophen Coronavirus (PCR) Crossmatch 10/12/20 10/12/20 10/12/20 10:52 11:04 11:23 WBC RBC Hgb 6.9 L Hct 19.9 L* D MCHC RDW Lymph % (Auto) Wallace % (Auto) Lymph # (Auto) Wallace # (Auto) Seg Neutrophils % Seg Neuts % (Manual) Lymphocytes % (Manual) Monocytes % (Manual) Nucleated RBC % Seg Neutrophils # Seg Neutrophils # Man Lymphocytes # (Manual) Monocytes # (Manual) PT INR D-Dimer ABG pH POC ABG pCO2 POC ABG pO2 ABG pO2 ABG HCO3 ABG Base Excess ABG Hemoglobin ABG Oxyhemoglobin ABG Sodium ABG Potassium ABG Chloride ABG Glucose Carboxyhemoglobin Sodium Potassium Chloride Carbon Dioxide BUN Creatinine Glucose POC Glucose 223 H Lactic Acid Uric Acid Calcium Phosphorus Ferritin Total Bilirubin Direct Bilirubin AST ALT Lactate Dehydrogenase Total Creatine Kinase Troponin T Total Protein Albumin Triglycerides Arterial Blood Glucose Arterial Blood Ionized Calcium Urine pH Urine WBC (Auto) Urine Creatinine Salicylates Acetaminophen Coronavirus (PCR) Crossmatch See Detail 10/12/20 10/13/20 10/13/20 16:19 00:26 04:38 WBC RBC Hgb Hct MCHC RDW Lymph % (Auto) Wallace % (Auto) Lymph # (Auto) Wallace # (Auto) Seg Neutrophils % Seg Neuts % (Manual) Lymphocytes % (Manual) Monocytes % (Manual) Nucleated RBC % Seg Neutrophils # Seg Neutrophils # Man Lymphocytes # (Manual) Monocytes # (Manual) PT INR D-Dimer ABG pH POC ABG pCO2 POC ABG pO2 ABG pO2 ABG HCO3 ABG Base Excess ABG Hemoglobin ABG Oxyhemoglobin ABG Sodium ABG Potassium ABG Chloride ABG Glucose Carboxyhemoglobin Sodium 133 L Potassium Chloride 95.1 L Carbon Dioxide BUN 103 H Creatinine 5.4 H Glucose 229 H POC Glucose 164 H 160 H Lactic Acid Uric Acid Calcium Phosphorus Ferritin Total Bilirubin Direct Bilirubin AST ALT Lactate Dehydrogenase Total Creatine Kinase Troponin T Total Protein Albumin Triglycerides Arterial Blood Glucose Arterial Blood Ionized Calcium Urine pH Urine WBC (Auto) Urine Creatinine Salicylates Acetaminophen Coronavirus (PCR) Crossmatch 10/13/20 10/13/20 10/13/20 04:38 05:34 08:10 WBC 13.0 H RBC 2.84 L Hgb 8.1 L Hct 24.7 L MCHC RDW 18.4 H Lymph % (Auto) Wallace % (Auto) 12.7 H Lymph # (Auto) Wallace # (Auto) 1.6 H Seg Neutrophils % 72.3 H Seg Neuts % (Manual) Lymphocytes % (Manual) Monocytes % (Manual) Nucleated RBC % Seg Neutrophils # 9.4 H Seg Neutrophils # Man Lymphocytes # (Manual) Monocytes # (Manual) PT INR D-Dimer ABG pH POC ABG pCO2 POC ABG pO2 ABG pO2 ABG HCO3 ABG Base Excess ABG Hemoglobin ABG Oxyhemoglobin ABG Sodium ABG Potassium ABG Chloride ABG Glucose Carboxyhemoglobin Sodium Potassium Chloride Carbon Dioxide BUN Creatinine Glucose POC Glucose 220 H 247 H Lactic Acid Uric Acid Calcium Phosphorus Ferritin Total Bilirubin Direct Bilirubin AST ALT Lactate Dehydrogenase Total Creatine Kinase Troponin T Total Protein Albumin Triglycerides Arterial Blood Glucose Arterial Blood Ionized Calcium Urine pH Urine WBC (Auto) Urine Creatinine Salicylates Acetaminophen Coronavirus (PCR) Crossmatch 10/13/20 10/13/20 10/13/20 09:29 11:14 16:20 WBC RBC Hgb Hct MCHC RDW Lymph % (Auto) Wallace % (Auto) Lymph # (Auto) Wallace # (Auto) Seg Neutrophils % Seg Neuts % (Manual) Lymphocytes % (Manual) Monocytes % (Manual) Nucleated RBC % Seg Neutrophils # Seg Neutrophils # Man Lymphocytes # (Manual) Monocytes # (Manual) PT INR D-Dimer ABG pH POC ABG pCO2 POC ABG pO2 ABG pO2 ABG HCO3 ABG Base Excess ABG Hemoglobin ABG Oxyhemoglobin ABG Sodium ABG Potassium ABG Chloride ABG Glucose Carboxyhemoglobin Sodium Potassium Chloride Carbon Dioxide BUN Creatinine Glucose POC Glucose 211 H 224 H Lactic Acid Uric Acid 8.6 H Calcium Phosphorus Ferritin Total Bilirubin Direct Bilirubin AST ALT Lactate Dehydrogenase Total Creatine Kinase Troponin T Total Protein Albumin Triglycerides Arterial Blood Glucose Arterial Blood Ionized Calcium Urine pH Urine WBC (Auto) Urine Creatinine Salicylates Acetaminophen Coronavirus (PCR) Crossmatch 10/14/20 10/14/20 10/14/20 00:19 05:46 05:46 WBC RBC 2.83 L Hgb 8.3 L Hct 24.4 L MCHC RDW 18.0 H Lymph % (Auto) Wallace % (Auto) 13.9 H Lymph # (Auto) Wallace # (Auto) 1.4 H Seg Neutrophils % Seg Neuts % (Manual) Lymphocytes % (Manual) Monocytes % (Manual) Nucleated RBC % Seg Neutrophils # Seg Neutrophils # Man Lymphocytes # (Manual) Monocytes # (Manual) PT INR D-Dimer ABG pH POC ABG pCO2 POC ABG pO2 ABG pO2 ABG HCO3 ABG Base Excess ABG Hemoglobin ABG Oxyhemoglobin ABG Sodium ABG Potassium ABG Chloride ABG Glucose Carboxyhemoglobin Sodium 134 L Potassium Chloride 95.8 L Carbon Dioxide BUN 101 H Creatinine 5.2 H Glucose 256 H POC Glucose 251 H Lactic Acid Uric Acid Calcium Phosphorus Ferritin Total Bilirubin Direct Bilirubin AST ALT Lactate Dehydrogenase Total Creatine Kinase Troponin T Total Protein Albumin Triglycerides Arterial Blood Glucose Arterial Blood Ionized Calcium Urine pH Urine WBC (Auto) Urine Creatinine Salicylates Acetaminophen Coronavirus (PCR) Crossmatch 10/14/20 10/14/20 10/14/20 06:10 11:32 16:28 WBC RBC Hgb Hct MCHC RDW Lymph % (Auto) Wallace % (Auto) Lymph # (Auto) Wallace # (Auto) Seg Neutrophils % Seg Neuts % (Manual) Lymphocytes % (Manual) Monocytes % (Manual) Nucleated RBC % Seg Neutrophils # Seg Neutrophils # Man Lymphocytes # (Manual) Monocytes # (Manual) PT INR D-Dimer ABG pH POC ABG pCO2 POC ABG pO2 ABG pO2 ABG HCO3 ABG Base Excess ABG Hemoglobin ABG Oxyhemoglobin ABG Sodium ABG Potassium ABG Chloride ABG Glucose Carboxyhemoglobin Sodium Potassium Chloride Carbon Dioxide BUN Creatinine Glucose POC Glucose 238 H 251 H 213 H Lactic Acid Uric Acid Calcium Phosphorus Ferritin Total Bilirubin Direct Bilirubin AST ALT Lactate Dehydrogenase Total Creatine Kinase Troponin T Total Protein Albumin Triglycerides Arterial Blood Glucose Arterial Blood Ionized Calcium Urine pH Urine WBC (Auto) Urine Creatinine Salicylates Acetaminophen Coronavirus (PCR) Crossmatch 10/15/20 10/15/20 10/15/20 01:14 06:07 06:52 WBC RBC 2.82 L Hgb 8.0 L Hct 24.1 L MCHC RDW 18.3 H Lymph % (Auto) Wallace % (Auto) 12.4 H Lymph # (Auto) Wallace # (Auto) 1.2 H Seg Neutrophils % Seg Neuts % (Manual) Lymphocytes % (Manual) Monocytes % (Manual) Nucleated RBC % Seg Neutrophils # Seg Neutrophils # Man Lymphocytes # (Manual) Monocytes # (Manual) PT INR D-Dimer ABG pH POC ABG pCO2 POC ABG pO2 ABG pO2 ABG HCO3 ABG Base Excess ABG Hemoglobin ABG Oxyhemoglobin ABG Sodium ABG Potassium ABG Chloride ABG Glucose Carboxyhemoglobin Sodium Potassium Chloride Carbon Dioxide BUN Creatinine Glucose POC Glucose 202 H 192 H Lactic Acid Uric Acid Calcium Phosphorus Ferritin Total Bilirubin Direct Bilirubin AST ALT Lactate Dehydrogenase Total Creatine Kinase Troponin T Total Protein Albumin Triglycerides Arterial Blood Glucose Arterial Blood Ionized Calcium Urine pH Urine WBC (Auto) Urine Creatinine Salicylates Acetaminophen Coronavirus (PCR) Crossmatch 10/15/20 10/15/20 10/16/20 11:34 15:42 06:38 WBC RBC Hgb Hct MCHC RDW Lymph % (Auto) Wallace % (Auto) Lymph # (Auto) Wallace # (Auto) Seg Neutrophils % Seg Neuts % (Manual) Lymphocytes % (Manual) Monocytes % (Manual) Nucleated RBC % Seg Neutrophils # Seg Neutrophils # Man Lymphocytes # (Manual) Monocytes # (Manual) PT INR D-Dimer ABG pH POC ABG pCO2 POC ABG pO2 ABG pO2 ABG HCO3 ABG Base Excess ABG Hemoglobin ABG Oxyhemoglobin ABG Sodium ABG Potassium ABG Chloride ABG Glucose Carboxyhemoglobin Sodium Potassium Chloride Carbon Dioxide BUN Creatinine Glucose POC Glucose 201 H 183 H 194 H Lactic Acid Uric Acid Calcium Phosphorus Ferritin Total Bilirubin Direct Bilirubin AST ALT Lactate Dehydrogenase Total Creatine Kinase Troponin T Total Protein Albumin Triglycerides Arterial Blood Glucose Arterial Blood Ionized Calcium Urine pH Urine WBC (Auto) Urine Creatinine Salicylates Acetaminophen Coronavirus (PCR) Crossmatch 10/16/20 10/16/20 10/16/20 07:13 10:07 12:28 WBC RBC 2.87 L Hgb 8.4 L Hct 25.3 L MCHC RDW 18.7 H Lymph % (Auto) Wallace % (Auto) 14.4 H Lymph # (Auto) Wallace # (Auto) 1.1 H Seg Neutrophils % Seg Neuts % (Manual) Lymphocytes % (Manual) Monocytes % (Manual) Nucleated RBC % Seg Neutrophils # Seg Neutrophils # Man Lymphocytes # (Manual) Monocytes # (Manual) PT INR D-Dimer ABG pH POC ABG pCO2 POC ABG pO2 ABG pO2 ABG HCO3 ABG Base Excess ABG Hemoglobin ABG Oxyhemoglobin ABG Sodium ABG Potassium ABG Chloride ABG Glucose Carboxyhemoglobin Sodium 136 L Potassium Chloride Carbon Dioxide BUN 101 H Creatinine 4.9 H Glucose 238 H POC Glucose 168 H Lactic Acid Uric Acid Calcium Phosphorus Ferritin Total Bilirubin Direct Bilirubin AST ALT Lactate Dehydrogenase Total Creatine Kinase Troponin T Total Protein Albumin Triglycerides Arterial Blood Glucose Arterial Blood Ionized Calcium Urine pH Urine WBC (Auto) Urine Creatinine Salicylates Acetaminophen Coronavirus (PCR) Crossmatch 10/16/20 10/16/20 10/17/20 12:31 16:45 00:12 WBC RBC Hgb Hct MCHC RDW Lymph % (Auto) Wallace % (Auto) Lymph # (Auto) Wallace # (Auto) Seg Neutrophils % Seg Neuts % (Manual) Lymphocytes % (Manual) Monocytes % (Manual) Nucleated RBC % Seg Neutrophils # Seg Neutrophils # Man Lymphocytes # (Manual) Monocytes # (Manual) PT INR D-Dimer ABG pH POC ABG pCO2 POC ABG pO2 ABG pO2 ABG HCO3 ABG Base Excess ABG Hemoglobin ABG Oxyhemoglobin ABG Sodium ABG Potassium ABG Chloride ABG Glucose Carboxyhemoglobin Sodium Potassium Chloride Carbon Dioxide BUN Creatinine Glucose POC Glucose 202 H 159 H 190 H Lactic Acid Uric Acid Calcium Phosphorus Ferritin Total Bilirubin Direct Bilirubin AST ALT Lactate Dehydrogenase Total Creatine Kinase Troponin T Total Protein Albumin Triglycerides Arterial Blood Glucose Arterial Blood Ionized Calcium Urine pH Urine WBC (Auto) Urine Creatinine Salicylates Acetaminophen Coronavirus (PCR) Crossmatch 10/17/20 10/17/20 10/17/20 07:54 08:19 09:12 WBC RBC Hgb Hct MCHC RDW Lymph % (Auto) Wallace % (Auto) Lymph # (Auto) Wallace # (Auto) Seg Neutrophils % Seg Neuts % (Manual) Lymphocytes % (Manual) Monocytes % (Manual) Nucleated RBC % Seg Neutrophils # Seg Neutrophils # Man Lymphocytes # (Manual) Monocytes # (Manual) PT INR D-Dimer ABG pH POC ABG pCO2 POC ABG pO2 ABG pO2 ABG HCO3 ABG Base Excess ABG Hemoglobin ABG Oxyhemoglobin ABG Sodium ABG Potassium ABG Chloride ABG Glucose Carboxyhemoglobin Sodium 133 L Potassium Chloride 96.8 L Carbon Dioxide BUN 105 H Creatinine 4.8 H Glucose 220 H POC Glucose 173 H 209 H Lactic Acid Uric Acid Calcium Phosphorus Ferritin Total Bilirubin Direct Bilirubin AST ALT Lactate Dehydrogenase Total Creatine Kinase Troponin T Total Protein Albumin Triglycerides Arterial Blood Glucose Arterial Blood Ionized Calcium Urine pH Urine WBC (Auto) Urine Creatinine Salicylates Acetaminophen Coronavirus (PCR) Crossmatch
[2020-10-18] MEDS: INSULIN LISPRO 100 UNIT/ML SUB-Q SCH ×5 (03:40→17:27)
[2020-10-18] MEDS: hydrALAZINE 25 MG TAB PO SCH ×3 (05:48→22:13)
--- NOTE | 2020-10-18 08:29 | Progress Note ---
Assessment and Plan Assessment and plan: S/p cardiopulmonary arrest Toxic metabolic encephalopathy +/-anoxic injury Acute hypoxic respiratory failure Acute kidney injury Seizure disorder Hyperkalemia COVID-19 pneumonia Sepsis Transaminitis Morbid obesity. 09/15/2020. MRI brain for further evaluation. Continue AEDs of valproic acid and Keppra. Continue hemodialysis per nephrology recommendations. Overall prognosis remains guarded and poor. 09/16/2020. ID recommends continue to monitor patient off of antibiotics. Fever most likely of central etiology. Patient with questionable seizures versus myoclonus from anoxic brain injury. Patient unable to undergo MRI due to body habitus. Continue AEDs per neurology recommendations. Inflammatory markers elevated. Patient was recently [place]. Patient not a candidate for remdesivir due to hepatic and renal failure. Viral hepatitis panel negative. Overall prognosis extremely poor. 09/17/2020. Fevers have resolved over the past 48 hours. Continue to monitor off antibiotics per ID recommendations. Patient with questionable seizures versus myoclonus from anoxic brain injury. Patient unable to undergo MRI due to body habitus. EEG is nonspecific but given CT of head findings consistent with anoxic encephalopathy, brain injury. Continue AEDs per neurology recommendations. Inflammatory markers elevated. Patient was recently [facility] for [place] [facility] [place]. Patient not a candidate for remdesivir due to hepatic and renal failure. Viral hepatitis panel negative. Patient is s/p emergent HD on Friday (hyperK) and Friday - 09/08. Patient also S/p HD 09/15. Continue hemodialysis per nephrology recommendations. Patient currently on AC/PRVC mode ventilation with rate of 30, tidal volume 475, FiO2 30% and PEEP of 6. As stated in neuro note, overall prognosis is very poor. 09/18/2020. Fevers have resolved over the past 72 hours. Continue to monitor off antibiotics per ID recommendations. Leukocytosis persistent for the past 4 days. Patient with questionable seizures/myoclonus from anoxic brain injury. Patient unable to undergo MRI due to body habitus. EEG is nonspecific but given CT of head findings consistent with anoxic encephalopathy, brain injury. Continue AEDs per neurology recommendations. Inflammatory markers elevated. Patient was recently [facility] [place] [facility] [place] [facility] [place]. Patient not a candidate for remdesivir due to hepatic and renal failure. Viral hepatitis panel negative. Patient currently on AC/PRVC mode ventilation with rate of 30, tidal volume 475, FiO2 30% and PEEP of 6. Overall prognosis remains guarded/poor. 07/19/2021 Fevers have resolved over the past 4 days. Continue to monitor off antibiotics per ID recommendations. Leukocytosis persistent for the past 4 days. Patient with questionable seizures/myoclonus from anoxic brain injury. Patient unable to undergo MRI due to body habitus. EEG is nonspecific but given CT of head findings consistent with anoxic encephalopathy, brain injury. Continue AEDs per neurology recommendations. Inflammatory markers elevated. Patient was [facility] [place] [facility] [place] [facility] [place]. Patient not a candidate for remdesivir due to hepatic and renal failure. Viral hepatitis panel negative. Patient currently on AC/PRVC mode ventilation with rate of 30, tidal volume 475, FiO2 30% and PEEP of 6. Overall prognosis remains guarded/poor. 09/20/2020 -Surgery consulted for PEG and trach, will continue to follow. 09/21/2020; patient will have PEG and trach by Dr. hayes today. Prognosis is poor. Continue with current management. Relief Driller is following for vent management. 09/22/2020; patient had PEG and trach yesterday. 09/23/2020; continue PEG Tube Feeding. 07/24/2021; continue PEG tube feeding, patient is on Keppra, lorazepam and phenytoin per neurology recommendation. Patient is on hemodialysis and nephrology is following. Management of mechanical ventilation for CCM. 09/25/2020. Continue PEG tube feeding, patient is on Keppra, lorazepam and phenytoin per neurology recommendation. Patient is on hemodialysis and nephrology is following. Management of mechanical ventilation for CCM. Continue PSV/CPAP 07/16. Continue tracheostomy care, secretion control and airway management. 09/26/2020. Patient has tolerated PSV for approximately 48 hours. I discussed with pulmonary possibility of T-piece today. Continue tracheostomy care, se cretion control and airway management. If patient tolerates T-piece trials, patient will be transferred to the floor. Continue AEDs of Keppra and phenytoin as well as Ativan as needed per neurology recommendations. Continue hemodialysis per nephrology. Continue TF with aspiration precautions. 09/27/2020. Patient continues to tolerate PSV 12/6 at 30% FiO2. T-piece trials per pulmonary. Continue tracheostomy care, secretion control and airway management. Continue AEDs of Keppra and phenytoin as well as Ativan as needed per neurology recommendations. Continue hemodialysis per nephrology. Continue TF with aspiration precautions. 09/28/2020. Patient for T-piece trials per pulmonary. Continue hemodialysis per nephrology. Continue tracheostomy care, secretion control and airway manageme nt. Continue AEDs of Keppra and phenytoin as well as Ativan as needed per neurology recommendations. Continue TF with aspiration precautions. 09/29/2020, continue T-piece trials per pulmonary. Continue hemodialysis per nephrology. Continue strict I/O's and labs daily. Monitor for renal recovery. 09/30/2020. Continue T-piece trials per pulmonary recommendations. Continue tracheostomy care, secretion control and airway management. Continue hemodialysis per nephrology. Tight glycemic control. Continue TF with aspiration precautions. 10/01/2020. Patient with T-piece trials and tolerating. Wean to trach collar per pulmonary. Continue tracheostomy care, secretion control and airway paola gement. Continue hemodialysis per nephrology. Tight glycemic control. Continue TF with aspiration precautions. Case management consultation for placement 10/02/20. Continue T-piece trials per pulmonary recommendations. Continue tracheostomy care, secretion control and airway management. Continue hemodialysis per nephrology. Tight glycemic control. Continue TF with aspiration precautions. 10/03/2020. Continue T-piece trials per pulmonology. Continue tracheostomy care, secretion control and airway management. Continue modalities per nephrology. Discharge planning underway. Needs placement to SNF versus hospice. 10/04/2020. Patient remained febrile with temperature 101 F. Ordered blood culture, chest x-ray, urinalysis. Plan to start antibiotics after blood cultures been obtained. Patient remains hemodynamically stable. Plan to discharge to SNF versus inpatient hospice on the way. 10/05/2020. Started on antibiotics yesterday. Awaiting blood culture. He developed atrial fibrillation with RVR and was placed on amiodaron see awaiting placement. E drip with subsequent conversion to SR. Now on amiodarone PO. Discussed with patients - she would like him to go inpatient hospice or a supervisor intermediates care facility. As per CM, [facility] not approving LTC placement at this time. As is still undecided about hospice, inpatient hospice is not accepting h im at this time. has placed a referral to a SNF with inpatient dialysis. Awaiting response from the SNF. 10/06/2020. Hb drop noted. Not on therapeutic anticoagulation [atrial fibrillation] due to duration of atrial fibrillation [lasted less than 2 hours] and also drop in hemoglobin. Continue to monitor hemoglobin. Repeat labs ordered today. Vitals stable. Discussed with patient's yesterday 10/07. HR is controlled. Pending placement. As per CM notes, patient denied acceptance at a [facility] as he has [facility] insurance. Will discuss with CM to know other options are available. 10/08. Vitals stable. Will discuss discharge plan with spouse today as it looks like only option left is inpatient hospice. 10/09. Vitals stable. Will discuss discharge plan with spouse today as it looks like only option left is inpatient hospice 10/10. Discussed with patient spouse. Patient spouse asking to see patient in the hospital. general production manager on board. Patient has not had hemodialysis since 10/05. Creatinine stable at 4.6. Nephrology on board 10/11. DC planning underway. Patient spouse to see patient in hospital today. Vitals remained stable. Creatinine stable as well. Increase Lantus to 36 units daily. 10/12. Patient started having fever yesterday-temp 102 Fahrenheit. Stat blood cultures were drawn today, urinalysis, urine culture, chest x-ray, procalcitonin ordered. Start on empirical antibiotics for possible hospital acquired pneumonia. ID consulted. H&H shows hemoglobin 4.6 patient will receive 2 units PRBCs.. Check H&H after admission. Check stool guaiac. 10/13. Patient with new sepsis. Follow-up blood, sputum and urine cultures. Continue empiric antibiotics of cefepime and vancomycin. Chest x-ray appears to be unchanged. Urinalysis revealed pyuria. H&H is stabilized from PRBCs. Continue to follow H&H 10/14. Urine culture reveals yeast. Blood cultures thus far negative. Continue empiric antibiotics of cefepime and vancomycin per ID recommendations. Nephro courtney had long discussion regarding initiation of hemodialysis. Shuttle Inspector conveyed to the spouse Yoko yesterday that prognosis is overall not good and his mortality risk is very high. Nephrology to potentially initiate hemodialysis today. I had a follow-up discussion with the spouse Yoko and reiterated poor prognosis. All questions answered. 10/15. Continue empiric antibiotics of cefepime and vancomycin per ID recommendations. Prognosis remains poor. Initiation of hemodialysis per nephrology recommendations. 10/16. PEG tube currently not flushing per nursing. GI consultation for PEG tube dysfunction. Repeat blood cultures have been negative x72 hours. Continue IV antibiotics per ID recommendations. Patient with Acute kidney injury currently nonoliguric likely felt to be due to acute tubular necrosis which has been felt to be multifactorial. Nephrology reports no urgent or emergent indication for renal replacement therapy and that the wants to proceed with renal replacement therapy. Nephrology informed her that patient is high risk for any adverse outcome including mortality risk during dialysis. Overall poor prognosis. 10/17/2020; patient is on PEG tube feeding and functional. Repeat blood cultures were negative. Patient does not have any fever overnight. Patient finished 5 days of IV cefepime and vancomycin yesterday. Acute renal failure followed by nephrology and said patient not a candidate for SUPER[employer]OR [employer]. And he is a poor candidate for dialysis. Will follow with nephrology for further recommendation. Overall prognosis is very poor. I order CT head to assess if brain edema is resolved, and to assess for anoxic brain injury. I put a consult for neurology to assess his prognosis and discussed with the family from neurology point of view. 10/18/2020; patient was evaluated by neurology and recommend MRI and EEG, MRI was not done because patient does not fit to the MRI table. CT head is ordered yesterday. Evaluated by ID and recommend to monitor off antibiotics. Nephrology is following. History Interval history: Patient was seen and evaluated this morning Patient is noncommunicative Patient has PEG and Trach Hospitalist Physical - Physical exam Narrative exam: On mechanical ventilation. Patient has PEG and a trach The patient appeared well nourished and normally developed. Vital signs as documented. Head exam is unremarkable. No scleral icterus . Neck is without jugular venous distension, thyromegaly, or carotid bruits. Lungs are clear to auscultation. Cardiac exam reveals regular rate and Rhythm. Abdominal exam reveals normal bowel sounds, nontender, no organomegaly. Extremities are nonedematous and both femoral and pedal pulses are normal. JOINT MAKER MACHINE: Patient is noncommunicative - Constitutional Vitals: Temp Pulse Resp BP Pulse Ox 96.3 F L 64 26 H 134/63 100 10/18/20 08:13 10/18/20 08:13 10/18/20 08:13 10/18/20 08:13 10/18/20 08:13 General appearance: Present: other (On mechanical ventilation) HEART Score - HEART Score Troponin: Troponin T 0.076 ng/mL (0.00-0.029) H 09/07/20 14:00 Results - Labs CBC & Chem 7: 10/16/20 07:13 10/17/20 08:19 Labs: Laboratory Last Values WBC 7.8 K/mm3 (4.5-11.0) 10/16/20 07:13 RBC 2.87 M/mm3 (3.65-5.03) L 10/16/20 07:13 Hgb 8.4 gm/dl (11.8-15.2) L 10/16/20 07:13 Hct 25.3 % (35.5-45.6) L 10/16/20 07:13 MCV 88 fl (84-94) 10/16/20 07:13 MCH 29 pg (28-32) 10/16/20 07:13 MCHC 33 % (32-34) 10/16/20 07:13 RDW 18.7 % (13.2-15.2) H 10/16/20 07:13 Plt Count 222 K/mm3 (140-440) 10/16/20 07:13 Lymph % (Auto) 21.2 % (13.4-35.0) 10/16/20 07:13 [place] % (Auto) 14.4 % (0.0-7.3) H 10/16/20 07:13 Eos % (Auto) 1.9 % (0.0-4.3) 10/16/20 07:13 Baso % (Auto) 0.3 % (0.0-1.8) 10/16/20 07:13 Lymph # (Auto) 1.6 K/mm3 (1.2-5.4) 10/16/20 07:13 [place] # (Auto) 1.1 K/mm3 (0.0-0.8) H 10/16/20 07:13 Eos # (Auto) 0.2 K/mm3 (0.0-0.4) 10/16/20 07:13 Baso # (Auto) 0.0 K/mm3 (0.0-0.1) 10/16/20 07:13 Add Manual Diff Complete 10/12/20 08:36 Total Counted 100 10/12/20 08:36 Seg Neutrophils % 62.2 % (40.0-70.0) 10/16/20 07:13 Seg Neuts % (Manual) 75.0 % (40.0-70.0) H 10/12/20 08:36 Band Neutrophils % 8.0 % 09/30/20 06:57 Lymphocytes % (Manual) 17.0 % (13.4-35.0) 10/12/20 08:36 Monocytes % (Manual) 5.0 % (0.0-7.3) 10/12/20 08:36 Eosinophils % (Manual) 2.0 % (0.0-4.3) 10/12/20 08:36 Basophils % (Manual) 1.0 % (0.0-1.8) 10/12/20 08:36 Metamyelocytes % 2.0 % 09/08/20 Unknown Promyelocytes % 0 % 10/04/20 10:32 Nucleated RBC % Not Reportable 10/12/20 08:36 Seg Neutrophils # 4.8 K/mm3 (1.8-7.7) 10/16/20 07:13 Seg Neutrophils # Man 10.6 K/mm3 (1.8-7.7) H 10/12/20 08:36 Band Neutrophils # 0.0 K/mm3 10/12/20 08:36 Lymphocytes # (Manual) 2.4 K/mm3 (1.2-5.4) 10/12/20 08:36 Abs React Lymphs (Man) 0.0 K/mm3 10/12/20 08:36 Monocytes # (Manual) 0.7 K/mm3 (0.0-0.8) 10/12/20 08:36 Eosinophils # (Manual) 0.3 K/mm3 (0.0-0.4) 10/12/20 08:36 Basophils # (Manual) 0.1 K/mm3 (0.0-0.1) 10/12/20 08:36 Metamyelocytes # 0.0 K/mm3 10/12/20 08:36 Myelocytes # 0.0 K/mm3 10/12/20 08:36 Promyelocytes # 0.0 K/mm3 10/12/20 08:36 Blast Cells # 0.0 K/mm3 10/12/20 08:36 WBC Morphology Not Reportable 10/12/20 08:36 Hypersegmented Neuts Not Reportable 10/12/20 08:36 Hyposegmented Neuts Not Reportable 10/12/20 08:36 Hypogranular Neuts Not Reportable 10/12/20 08:36 Smudge Cells Not Reportable 10/12/20 08:36 Toxic Granulation Not Reportable 10/12/20 08:36 Toxic Vacuolation Not Reportable 10/12/20 08:36 Dohle Bodies Not Reportable 10/12/20 08:36 Pelger-Huet Anomaly Not Reportable 10/12/20 08:36 Justus Rods Not Reportable 10/12/20 08:36 Platelet Estimate Consistent w auto 10/12/20 08:36 Clumped Platelets Not Reportable 10/12/20 08:36 Plt Clumps, EDTA Not Reportable 10/12/20 08:36 Large Platelets Not Reportable 10/12/20 08:36 Giant Platelets Not Reportable 10/12/20 08:36 Platelet Satelliting Not Reportable 10/12/20 08:36 Plt Morphology Comment Not Reportable 10/12/20 08:36 RBC Morphology Not Reportable 10/12/20 08:36 Dimorphic RBCs Not Reportable 10/12/20 08:36 Polychromasia Not Reportable 10/12/20 08:36 Hypochromasia 1+ 10/12/20 08:36 Poikilocytosis Not Reportable 10/12/20 08:36 Anisocytosis Not Reportable 10/12/20 08:36 Microcytosis Not Reportable 10/12/20 08:36 Macrocytosis Not Reportable 10/12/20 08:36 Spherocytes Not Reportable 10/12/20 08:36 Pappenheimer Bodies Not Reportable 10/12/20 08:36 Sickle Cells Not Reportable 10/12/20 08:36 Target Cells Not Reportable 10/12/20 08:36 Tear Drop Cells Not Reportable 10/12/20 08:36 Ovalocytes Not Reportable 10/12/20 08:36 Helmet Cells Not Reportable 10/12/20 08:36 [place] Bodies Not Reportable 10/12/20 08:36 [place] Rings Not Reportable 10/12/20 08:36 [place] Cells Not Reportable 10/12/20 08:36 Bite Cells Not Reportable 10/12/20 08:36 Crenated Cell Not Reportable 10/12/20 08:36 Elliptocytes Not Reportable 10/12/20 08:36 Acanthocytes (Spur) Not Reportable 10/12/20 08:36 Rouleaux Not Reportable 10/12/20 08:36 Hemoglobin C Crystals Not Reportable 10/12/20 08:36 Schistocytes Not Reportable 10/12/20 08:36 Malaria parasites Not Reportable 10/12/20 08:36 [place] Bodies Not Reportable 10/12/20 08:36 Hem Pathologist Commnt No 10/12/20 08:36 PT 16.1 Sec. (12.2-14.9) H 09/12/20 04:00 INR 1.31 (0.87-1.13) H 09/12/20 04:00 APTT 32.4 Sec. (24.2-36.6) 09/09/20 10:00 D-Dimer 8315.85 ng/mlDDU (0-234) H 09/07/20 14:00 ABG pH 7.468 (7.320-7.450) H 10/02/20 10:16 POC ABG pCO2 37.1 mmHg (32.0-48.0) 10/02/20 10:16 ABG pCO2 33.4 mm Hg 09/11/20 05:40 POC ABG pO2 72.9 mmHg (83-108) L 10/02/20 10:16 ABG pO2 112.1 mm Hg (80.0-90.0) H 09/11/20 05:40 POC ABG HCO3 26.3 10/02/20 10:16 ABG HCO3 28.1 mmol/L (20.0-26.0) H 09/11/20 05:40 ABG O2 Saturation 98.4 % (95.0-99.0) 09/11/20 05:40 ABG O2 Content 11.6 (0.0-44) 09/11/20 05:40 POC ABG Base Excess 2.6 10/02/20 10:16 ABG Base Excess 5.4 mmol/L (-2.0-3.0) H 09/11/20 05:40 ABG Hemoglobin 10.1 (12.0-17.5) L 10/02/20 10:16 ABG Oxyhemoglobin 93.1 (94-98) L 10/02/20 10:16 ABG Carboxyhemoglobin 1.2 % (0.0-5.0) 09/11/20 05:40 ABG Methemoglobin 0.3 (0.0-1.5) 10/02/20 10:16 ABG Sodium 138.5 mmol/L (136.0-145.0) 10/02/20 10:16 ABG Potassium 3.9 mmol/L (3.40-4.50) 10/02/20 10:16 ABG Chloride 108.0 mmol/L (98-107) H 10/02/20 10:16 ABG Glucose 289 mg/dL (65-95) H 10/02/20 10:16 Oxyhemoglobin 96.8 % (95.0-99.0) 09/11/20 05:40 Carboxyhemoglobin 0.8 (0.5-1.5) 10/02/20 10:16 FiO2 35 10/02/20 10:16 Sodium 133 mmol/L (137-145) L 10/17/20 08:19 Potassium 4.3 mmol/L (3.6-5.0) 10/17/20 08:19 Chloride 96.8 mmol/L (98-107) L 10/17/20 08:19 Carbon Dioxide 28 mmol/L (22-30) 10/17/20 08:19 Anion Gap 13 mmol/L 10/17/20 08:19 BUN 105 mg/dL (9-20) H 10/17/20 08:19 Creatinine 4.8 mg/dL (0.8-1.3) H 10/17/20 08:19 Estimated GFR 15 ml/min 10/17/20 08:19 BUN/Creatinine Ratio 22 % 10/17/20 08:19 Glucose 220 mg/dL (75-100) H 10/17/20 08:19 POC Glucose 249 mg/dL (70-105) H 10/18/20 00:16 Osmolality 353 Mosm/kg 10/13/20 09:29 Lactic Acid 2.90 mmol/L (0.7-2.0) H* 09/17/20 13:52 Uric Acid 8.6 mg/dL (3.5-7.6) H 10/13/20 09:29 Calcium 9.6 mg/dL (8.4-10.2) 10/17/20 08:19 Phosphorus 8.00 mg/dL (2.5-4.5) H 09/08/20 12:02 Magnesium 1.80 mg/dL (1.7-2.3) 09/08/20 12:02 Ferritin > 2000.0 ng/mL (30.0-300.0) H 09/07/20 14:00 Total Bilirubin 0.30 mg/dL (0.1-1.2) 10/06/20 10:12 Direct Bilirubin 0.5 mg/dL (0-0.2) H 09/08/20 05:00 Indirect Bilirubin 0.5 mg/dL 09/08/20 05:00 AST 52 units/L (5-40) H 10/06/20 10:12 ALT 28 units/L (7-56) 10/06/20 10:12 Alkaline Phosphatase 94 units/L (35-129) 10/06/20 10:12 Ammonia 50.0 umol/L (25-60) 09/07/20 14:00 Lactate Dehydrogenase 882 units/L (91-180) H 09/07/20 14:00 Total Creatine Kinase 477 units/L (55-170) H 09/07/20 14:00 Troponin T 0.076 ng/mL (0.00-0.029) H 09/07/20 14:00 C-Reactive Protein 1.10 mg/dL (0.00-1.30) 09/07/20 14:00 Total Protein 8.4 g/dL (6.3-8.2) H 10/06/20 10:12 Albumin 2.3 g/dL (3.9-5) L 10/06/20 10:12 Albumin/Globulin Ratio 0.4 % 10/06/20 10:12 Triglycerides 220 mg/dL (2-149) H 09/12/20 Unknown Procalcitonin 2.03 ng/mL (<0.15) 10/12/20 08:19 TSH 2.290 mlU/mL (0.270-4.200) 09/07/20 14:00 Arterial Blood Glucose 289 mg/dL (65-95) H 10/02/20 10:16 Arterial Blood Ionized Calcium 5.2 mg/dL (4.6-5.3) 10/02/20 10:16 Urine Color Yellow (Yellow) 10/13/20 14:45 Urine Turbidity Slightly-cloudy (Clear) 10/13/20 14:45 Urine pH 5.0 (5.0-7.0) 10/13/20 14:45 Ur Specific [place] 1.014 (1.003-1.030) 10/13/20 14:45 Urine Protein 100 mg/dl mg/dL (Negative) 10/13/20 14:45 Urine Glucose (UA) 50 mg/dL (Negative) 10/13/20 14:45 Urine Ketones Neg mg/dL (Negative) 10/13/20 14:45 Urine Blood Mod (Negative) 10/13/20 14:45 Urine Nitrite Neg (Negative) 10/13/20 14:45 Urine Bilirubin Neg (Negative) 10/13/20 14:45 Urine Urobilinogen < 2.0 mg/dL (<2.0) 10/13/20 14:45 Ur Leukocyte Esterase Neg (Negative) 10/13/20 14:45 Urine WBC (Auto) 6.0 /HPF (0.0-6.0) 10/13/20 14:45 Urine RBC (Auto) 29.0 /HPF (0.0-6.0) 10/13/20 14:45 U Epithel Cells (Auto) 1.0 /HPF (0-13.0) 10/13/20 14:45 Urine Bacteria (Auto) 2+ /HPF (Negative) 10/13/20 14:45 Urine WBC Clumps 3+ /HPF 10/12/20 10:25 Hyaline Casts 1 /LPF 10/05/20 09:15 Urine Mucus Few /HPF 10/13/20 14:45 Urine Yeast (Budding) 3+ /HPF 10/13/20 14:45 Urine Sperm Few /HPF (SWIMMING INSTRUCTOR) 10/13/20 14:45 Urine Creatinine < 4.2 mg/dL (0.1-20.0) 10/13/20 14:45 Urine Sodium 10 mmol/L 10/13/20 14:45 Random Vancomycin 12.4 ug/mL (0-40.0) 10/15/20 06:52 Salicylates < 0.3 mg/dL (2.8-20.0) L 09/07/20 14:00 Acetaminophen 5.0 ug/mL (10.0-30.0) L 09/07/20 14:00 Valproic Acid 58.9 ug/mL (50-100) 10/04/20 04:55 Plasma/Serum Alcohol < 0.01 % (0-0.07) 09/07/20 14:00 Coronavirus (PCR) Negative (Negative) 10/03/20 10:01 Hepatitis A IgM Ab Non-reactive (NonReactive) 09/07/20 14:00 Hep Bs Antigen Non-reactive (Negative) 09/07/20 14:00 Hep B Core IgM Ab Non-reactive (NonReactive) 09/07/20 14:00 Hepatitis C Antibody Non-reactive (NonReactive) 09/07/20 14:00 HIV 1&2 Antibody Rapid Non react (Non React) 09/07/20 14:34 HIV P24 Antigen Non react (Non React) 09/07/20 14:34 Blood Type O POSITIVE 10/12/20 11:04 Antibody Screen Negative 10/12/20 11:04 Crossmatch See Detail 10/12/20 11:04 Microbiology: Microbiology 10/12/20 08:19 Peripheral/Venous Blood Culture - Final NO GROWTH AFTER 5 DAYS 10/12/20 08:48 Peripheral/Venous Blood Culture - Final NO GROWTH AFTER 5 DAYS Mae/IV: Voiding Method Condom Catheter IV Catheter Type [Right Triple Lumen Cath Femoral] IV Catheter Type [Left Peripheral IV Antecubital] IV Catheter Type [Left Hand] Peripheral IV IV Catheter Type [Right Peripheral IV Antecubital] Active Medications - Current Medications Current Medications: Generic Name Dose Route Start Last Admin Trade Name Freq PRN Reason Stop Dose Admin Acetaminophen 650 mg 10/02/20 09:00 10/12/20 09:31 Acetaminophen 325 Mg/10.15 Ml Oral Liqd Unit Dose PO 650 mg Q4HR PRN Administration Non Cardiac Pain or Temp>100.5 Amiodarone HCl 200 mg 10/05/20 11:00 10/17/20 21:42 Amiodarone 200 Mg Tab PO 200 mg BID TAYLOR Administration Lipase/Protease/Amylase 1 each 09/09/20 09:40 10/16/20 08:34 Lipase 10,500/Protease 25,000/Amylase 43,750 (Units) Dr Armenta FEEDTUBE 1 each PRN PRN Administration For Clogged Feeding Tube Hydralazine HCl 50 mg 09/23/20 14:00 10/18/20 05:48 Hydralazine 25 Mg Tab PO 50 mg Q8HR TAYLOR Administration Insulin Glargine 36 units 10/11/20 12:00 10/17/20 09:18 Insulin Glargine 100 Units/Ml SUB-Q 36 units DAILY TAYLOR Administration Insulin Human Lispro 0 unit 09/12/20 12:00 10/18/20 08:06 Insulin Lispro 100 Unit/Ml SUB-Q Not Given Q6HR [facility] Protocol Lansoprazole 30 mg 10/13/20 10:00 10/17/20 09:02 Lansoprazole 30 Mg Solutab FEEDTUBE 30 mg DAILY TAYLOR Administration Levetiracetam 1,500 mg 09/28/20 10:00 10/17/20 21:44 Levetiracetam 500 Mg/5 Ml Oral Liqd PO 1,500 mg BID TAYLOR Administration Multivitamins 5 ml 09/09/20 12:00 10/17/20 09:00 Multivitamins 5 Ml Oral Liquid PO Not Given QDAY [facility] Ondansetron HCl 4 mg 09/07/20 17:55 09/19/20 04:00 Ondansetron 4 Mg/2 Ml Inj IV 4 mg Q8H PRN Administration Nausea And Vomiting Senna/Docusate Sodium 2 tab 09/20/20 11:00 Sennosides/Docusate Sodium 8.6/50 Mg Tab PO BID PRN Laxative Effect Simple Syrup 15 ml 09/09/20 09:40 09/17/20 17:43 Simple Syrup 15 Ml FEEDTUBE 15 ml PRN PRN Administration Hypoglycemia Simple Syrup 30 ml 09/09/20 09:40 Simple Syrup 15 Ml FEEDTUBE PRN PRN Hypoglycemia Sodium Bicarbonate 325 mg 09/09/20 09:40 10/16/20 08:36 Sodium Bicarbonate 325 Mg Tab FEEDTUBE 325 mg PRN PRN Administration For Clogged Feeding Tube Sodium Chloride 10 ml 09/07/20 22:00 10/17/20 21:45 Sodium Chloride 0.9% 10 Ml Flush Syringe IV 10 ml BID TAYLOR Administration Sodium Chloride 10 ml 09/07/20 17:55 Sodium Chloride 0.9% 10 Ml Flush Syringe IV PRN PRN LINE FLUSH Valproic Acid 1,000 mg 09/28/20 10:00 10/17/20 21:41 Valproic Acid 250 Mg/5 Ml Oral Liqd FEEDTUBE 1,000 mg BID TAYLOR Administration Nutrition/Malnutrition Assess - Dietary Evaluation Nutrition/Malnutrition Findings: Nutrition Notes Start: 09/08/20 12:01 Freq: Status: Active Protocol: Document 10/16/20 15:09 CW (Rec: 10/16/20 15:13 CW [id number]) Nutrition Notes Initial or Follow up Reassessment Current Diagnosis Acute Kidney Injury, Respiratory Failure Other Pertinent Diagnosis cardiac arrest, COVID (+), metabolic encephalopathy, pneu Current Diet Nepro 1.8 at 45 mL/hr (goal rate) Labs/Tests Na 136 BUN 101 Cr 4.9 BG 238 Pertinent Medications Humalog 4 units Lantus 36 units Height 6 ft Weight 157.1 kg [place] Body Weight (kg) 80.90 BMI 47.0 Weight change and time frame Weight change noted, pt no longer on HD Weight Status Morbidly Obese Subjective/Other Information F/U for TF stability. Nepro 1. 8 running at 45 ml per hour. TF is being well tolerated. TF temporarily on hold d/t clogging but has since been unclogged and is running again . TF not meeting 75% of protein needs d/t poor renal functioning w/out HD Percent of energy/protein needs met: 100%/64% Burn Absent Trauma Absent GI Symptoms None Difficulty In Swallowing Food Allergy No Skin Integrity/Comment pressure ulcer to lips Current % PO Negligible Minimum of two criteria No Fluid Accumulation Mild (non-severe) #3 Nutrition Diagnosis Increased nutrient needs ( specify in comment below) Comments: protein Diagnosis Progress(for reassessment Continues documentation) #1 Nutrition Diagnosis Inadequate oral intake Diagnosis Progress(for reassessment Continues documentation) Is patient on ventilator? No Is Patient Ambulatory and/or Out of Bed No REE-([facility]-confined to bed) 2883.060 Kcal/Kg value to use for calculation 12 Approximate Energy Requirements Using 1885 kcal/Kg Calculation Used for Recommendations Kcal/kg Additional Notes PRO needs: 147 -177g (1.25-1.5 g/kg AdBW 118kg) Fluid needs: 1 ml/kcal or per MD Nutrition Intervention Change Diet Order: TF Nutrition Support: Nepro at 45ml/hr Flush with 200mL q4h per MD Kcal 1,944 Protein (gm) 87 Fluid (mL) 785 Goal #1 Meet kcal and protein needs as best as possible via TF Goal #2 Wound healing Anticipated Discharge Needs: Continous Nepro TF at 45 ml/h Follow-Up By: 10/19/20 Additional Comments F/U Stable TF
[2020-10-18] MEDS: levETIRAcetam 500 MG/5 ML ORAL LIQD PO SCH ×2 (09:18→22:13)
[2020-10-18] MEDS: VALPROIC ACID 250 MG/5 ML ORAL LIQD FEEDTUBE SCH ×2 (09:18→22:13)
[2020-10-18] MEDS: LANSOPRAZOLE 30 MG SOLUTAB FEEDTUBE SCH (09:19)
[2020-10-18] MEDS: AMIODARONE 200 MG TAB PO SCH ×2 (09:19→22:14)
[2020-10-18] MEDS: SODIUM BICARBONATE 325 MG TAB FEEDTUBE PRN (09:46)
[2020-10-18] MEDS: LIPASE 10,500/PROTEASE 25,000/AMYLASE 43,750 (UNITS) DR CAP FEEDTUBE PRN (09:46)
[2020-10-18] MEDS: INSULIN GLARGINE 100 UNITS/ML SUB-Q SCH (10:13)
[2020-10-18 10:38] LABS: Calcium 9.9 mg/dL (8.4-10.2)
[2020-10-18] MEDS: MULTIVITAMINS 5 ML ORAL LIQUID PO SCH (11:56)
--- NOTE | 2020-10-18 12:21 | Progress Note ---
Assessment and Plan Cultures: Blood culture 09/07/2020 no growth SARS CoV2 PCR positive 09/07/2020 urine culture: No growth HIV, hepatitis panel: Negative 10/04/2020 blood culture: No growth 10/05/2020 urine culture: Mixed cailin 10/12/2020 blood culture: No growth 10/12/2020 tracheal aspirate: Usual respiratory cailin 10/12/2020 urine culture: Yeast, non-albicans Assessment: 65 years old male with unknown medical history, morbidly obese, brought to the ED by EMS on 09/07/2020 secondary to passing out, found in out of hospital cardiac arrest status post resuscitation, intubated in the field: #New sepsis: UA with pyuria, chest x-ray appears unchanged but thickened upper respiratory secretions. Ruled out bacteremia. Prolonged and complicated hospital stay. Urine culture with non-albicans wilfredo, likely colonization given prolonged hospital stay and broad spectrum abx exposure #[id number] cardiac arrest/shock #Bilateral pneumonia secondary to COVID-19 infection. Inflammatory markers elevated. D-dimer was 8315. apparently, patient was recently hospitalized at the [facility] for COVID-19 prior to admission here. Was not a candidate for remdesivir due to hepatic and renal failure. #Acute hypoxic respiratory failure: now s/p trach, PEG. #Acute renal failure: required HD but now off, nephrology closely monitoring. #Acute anoxic encephalopathy. Recs: -monitor off abx ID will sign off. Remains at risk of recurrent infections: UTI, decubiti, pneumonia. Please reconsult if needed. Marisol Stock MD, FACP [facility] ([facility] O: [phone] F: [phone] Subjective Date of service: 10/18/20 Principal diagnosis: Abnormal LFTs, s/p cardiac arrest, acute kidney injury with ATN Interval history: Afebrile. Non verbal. No change in clinical status. Objective - Exam Narrative Exam: Physical Exam: Constitutional: Unresponsive Head, Ears, Nose: Normocephalic, atraumatic. External ears, nose normal Eyes: Conjunctivae/corneas clear. No icterus. No ptosis. Neck: Trach present Cardiovascular: S1, S2 + Respiratory: AE fair bilaterally and equal GI: Soft, bowel sounds +, G-tube + Musculoskeletal: No pedal edema, no cyanosis. Skin: No rash or abscess Hem/Lymphatic: No palpable cervical or supraclavicular nodes. No lymphangitis Psych: no agitation Neurological: Unresponsive - Constitutional Vitals: Vital Signs Temp Pulse Resp BP Pulse Ox 96.1 F L 62 20 134/67 97 10/18/20 11:56 10/18/20 11:56 10/18/20 11:56 10/18/20 11:56 10/18/20 11:56 Temperature -Last 24 Hours Temperature 96.1 F Temperature 96.3 F Temperature 97.8 F Temperature 98.0 F Temperature 97.9 F Temperature 97.7 F - Labs CBC & Chem 7: 10/16/20 07:13 10/18/20 09:54 Labs: Abnormal lab results 10/17/20 10/17/20 10/18/20 Range/Units 11:30 16:02 00:16 BUN (9-20) mg/dL Creatinine (0.8-1.3) mg/dL Glucose (75-100) mg/dL POC Glucose 233 H 200 H 249 H (70-105) mg/dL 10/18/20 10/18/20 10/18/20 Range/Units 05:42 09:54 11:37 BUN 104 H (9-20) mg/dL Creatinine 4.6 H (0.8-1.3) mg/dL Glucose 223 H (75-100) mg/dL POC Glucose 232 H 190 H (70-105) mg/dL
[2020-10-18] MEDS ORDERED: SODIUM CHLORIDE 0.9% 1000 ML 1,000 ML IV SCH (13:00)
--- NOTE | 2020-10-18 13:00 | Progress Note ---
Assessment and Plan Assessment and plan #Acute kidney injury on chronic kidney disease, baseline creatinine around 1.8, briefly on iHD, currently nonoliguric likely felt to be due to acute tubular necrosis (multifactorial). No emergent indication for renal replacement therapy. Added free water flushes. IF PEG tube not flushing, can add IVF in the interim. Elevated BUN likely due to tube feeds. He is a poor candidate for renal replacement therapy. Maintain intake and output logs, avoid any nephrotoxic medication Anemia with renal failure, s/p erythropoietin Keep MAP > 65 Renally dose medications - antibiotics and antiepileptics #Out of hospital cardiac arrest #Anoxic encephalopathy, s/p trach and PEG. Repeat CT head pending, neurology evaluation noted. #Bilateral pneumonia due to Covid infection - S/p completion of antibiotic course - ID following, s/p trach Subjective Date of service: 10/18/20 Principal diagnosis: Abnormal LFTs, s/p cardiac arrest, acute kidney injury with ATN Interval history: No change in mental status PEG tube dysfunction noted, not flushing Patient was seen for his renal issues Nursing, interdisciplinary and consult notes were reviewed Vitals, input and output, medications and labs were reviewed Objective - Exam Narrative Exam: General: No acute distress HEENT: Oral mucosa moist Neck: Supple, no JVD Chest: Trached. Heart: RRR, S1 and S2, no pericardial rub Abdomen: Soft, nontender, no renal bruit Extremity: No peripheral cyanosis, edema Neurological: Unresponsive Dermatology: No skin rash Psych: No agitation Musculoskeletal: No joint effusion - Vital Signs Vital signs: Vital Signs - 12hr 10/18/20 10/18/20 10/18/20 02:20 04:35 08:00 Temperature 97.8 F Pulse Rate 69 Respiratory 28 H Rate Blood Pressure 139/67 Blood Pressure [Right] O2 Sat by Pulse 96 Oximetry O2 Sat by Pulse 97 98 Oximetry [ Assessment] 10/18/20 10/18/20 10/18/20 08:13 09:20 11:00 Temperature 96.3 F L Pulse Rate 64 Respiratory 26 H 20 Rate Blood Pressure 134/63 Blood Pressure [Right] O2 Sat by Pulse 100 98 97 Oximetry O2 Sat by Pulse Oximetry [ Assessment] 10/18/20 11:56 Temperature 96.1 F L Pulse Rate 62 Respiratory 20 Rate Blood Pressure Blood Pressure 134/67 [Right] O2 Sat by Pulse 97 Oximetry O2 Sat by Pulse Oximetry [ Assessment] - Lab 10/16/20 07:13 10/18/20 09:54 Most recent lab results ABG pH 7.468 (7.320-7.450) H 10/02/20 10:16 ABG pCO2 33.4 mm Hg 09/11/20 05:40 ABG pO2 112.1 mm Hg (80.0-90.0) H 09/11/20 05:40 ABG HCO3 28.1 mmol/L (20.0-26.0) H 09/11/20 05:40 ABG O2 Saturation 98.4 % (95.0-99.0) 09/11/20 05:40 Calcium 9.9 mg/dL (8.4-10.2) 10/18/20 09:54 Phosphorus 8.00 mg/dL (2.5-4.5) H 09/08/20 12:02 Magnesium 1.80 mg/dL (1.7-2.3) 09/08/20 12:02 Urine Creatinine < 4.2 mg/dL (0.1-20.0) 10/13/20 14:45 Urine Sodium 10 mmol/L 10/13/20 14:45 Medications & Allergies - Medications Allergies/Adverse Reactions: Allergies No Known Allergies Allergy (Verified 09/21/20 21:00) Verified with , no known drug allergies. Home Medications: Home Medications Medication Instructions Recorded Confirmed Last Taken Type Albuterol Sulfate 60 mcg IH PRN 09/11/20 09/11/20 Unknown History Cholecalciferol (Vitamin D3) 25 tab PO DAILY 09/11/20 09/11/20 Unknown History Cozaar 25 tab PO DAILY 09/11/20 09/11/20 Unknown History HumaLOG 14 unit SQ AC 09/11/20 09/11/20 Unknown History Hydralazine HCl 50 tab PO TID 09/11/20 09/11/20 Unknown History Isosorbide Dinitrate 30 mg PO DAILY 09/11/20 09/11/20 Unknown History Lantus VIAL 54 units SQ HS 09/11/20 09/11/20 Unknown History Lasix 20 tab PO DAILY 09/11/20 09/11/20 Unknown History Nifedipine 30 tab PO DAILY 09/11/20 09/11/20 Unknown History Active Medications: Generic Name Dose Route Start Last Admin Trade Name Freq PRN Reason Stop Dose Admin Acetaminophen 650 mg 10/02/20 09:00 10/12/20 09:31 Acetaminophen 325 Mg/10.15 Ml Oral Liqd Unit Dose PO 650 mg Q4HR PRN Administration Non Cardiac Pain or Temp>100.5 Amiodarone HCl 200 mg 10/05/20 11:00 10/18/20 09:19 Amiodarone 200 Mg Tab PO 200 mg BID TAYLOR Administration Lipase/Protease/Amylase 1 each 09/09/20 09:40 10/18/20 09:46 Lipase 10,500/Protease 25,000/Amylase 43,750 (Units) Dr Armenta FEEDTUBE 1 each PRN PRN Administration For Clogged Feeding Tube Hydralazine HCl 50 mg 09/23/20 14:00 10/18/20 05:48 Hydralazine 25 Mg Tab PO 50 mg Q8HR TAYLOR Administration Insulin Glargine 36 units 10/11/20 12:00 10/18/20 10:13 Insulin Glargine 100 Units/Ml SUB-Q 36 units DAILY TAYLOR Administration Insulin Human Lispro 0 unit 09/12/20 12:00 10/18/20 12:25 Insulin Lispro 100 Unit/Ml SUB-Q 3 unit Q6HR TAYLOR Administration Protocol Lansoprazole 30 mg 10/13/20 10:00 10/18/20 09:19 Lansoprazole 30 Mg Solutab FEEDTUBE 30 mg DAILY TAYLOR Administration Levetiracetam 1,500 mg 09/28/20 10:00 10/18/20 09:18 Levetiracetam 500 Mg/5 Ml Oral Liqd PO 1,500 mg BID TAYLOR Administration Multivitamins 5 ml 09/09/20 12:00 10/18/20 11:56 Multivitamins 5 Ml Oral Liquid PO Not Given QDAY TAYLRO Ondansetron HCl 4 mg 09/07/20 17:55 09/19/20 04:00 Ondansetron 4 Mg/2 Ml Inj IV 4 mg Q8H PRN Administration Nausea And Vomiting Senna/Docusate Sodium 2 tab 09/20/20 11:00 Sennosides/Docusate Sodium 8.6/50 Mg Tab PO BID PRN Laxative Effect Simple Syrup 15 ml 09/09/20 09:40 09/17/20 17:43 Simple Syrup 15 Ml FEEDTUBE 15 ml PRN PRN Administration Hypoglycemia Simple Syrup 30 ml 09/09/20 09:40 Simple Syrup 15 Ml FEEDTUBE PRN PRN Hypoglycemia Sodium Bicarbonate 325 mg 09/09/20 09:40 10/18/20 09:46 Sodium Bicarbonate 325 Mg Tab FEEDTUBE 325 mg PRN PRN Administration For Clogged Feeding Tube Sodium Chloride 10 ml 09/07/20 22:00 10/18/20 09:19 Sodium Chloride 0.9% 10 Ml Flush Syringe IV 10 ml BID TAYLOR Administration Sodium Chloride 10 ml 09/07/20 17:55 Sodium Chloride 0.9% 10 Ml Flush Syringe IV PRN PRN LINE FLUSH Valproic Acid 1,000 mg 09/28/20 10:00 10/18/20 09:18 Valproic Acid 250 Mg/5 Ml Oral Liqd FEEDTUBE 1,000 mg BID TAYLOR Administration
[2020-10-19] MEDS: INSULIN LISPRO 100 UNIT/ML SUB-Q SCH ×4 (00:14→17:31)
[2020-10-19] MEDS: hydrALAZINE 25 MG TAB PO SCH ×3 (05:36→21:48)
--- NOTE | 2020-10-19 09:29 | Progress Note ---
Assessment and Plan Assessment and plan: S/p cardiopulmonary arrest Toxic metabolic encephalopathy +/-anoxic injury Acute hypoxic respiratory failure Acute kidney injury Seizure disorder Hyperkalemia COVID-19 pneumonia Sepsis Transaminitis Morbid obesity. 09/15/2020. MRI brain for further evaluation. Continue AEDs of valproic acid and Keppra. Continue hemodialysis per nephrology recommendations. Overall prognosis remains guarded and poor. 09/16/2020. ID recommends continue to monitor patient off of antibiotics. Fever most likely of central etiology. Patient with questionable seizures versus myoclonus from anoxic brain injury. Patient unable to undergo MRI due to body habitus. Continue AEDs per neurology recommendations. Inflammatory markers elevated. Patient was recently hospitalized for COVID-19 pneumonia at [facility] to being hospitalized [place]. Patient not a candidate for remdesivir due to hepatic and renal failure. Viral hepatitis panel negative. Overall prognosis extremely poor. 09/17/2020. Fevers have resolved over the past 48 hours. Continue to monitor off antibiotics per ID recommendations. Patient with questionable seizures versus myoclonus from anoxic brain injury. Patient unable to undergo MRI due to body habitus. EEG is nonspecific but given CT of head findings consistent with anoxic encephalopathy, brain injury. Continue AEDs per neurology recommendations. Inflammatory markers elevated. Patient was recently hospitalized for COVID-19 pneumonia at the [facility] to being hospitalized [facility]. Patient not a candidate for remdesivir due to hepatic and renal failure. Viral hepatitis panel negative. Patient is s/p emergent HD on Friday (hyperK) and Friday - 09/08. Patient also S/p HD 09/15. Continue hemodialysis per nephrology recommendations. Patient currently on AC/PRVC mode ventilation with rate of 30, tidal volume 475, FiO2 30% and PEEP of 6. As stated in neuro note, overall prognosis is very poor. 09/18/2020. Fevers have resolved over the past 72 hours. Continue to monitor off antibiotics per ID recommendations. Leukocytosis persistent for the past 4 days. Patient with questionable seizures/myoclonus from anoxic brain injury. Patient unable to undergo MRI due to body habitus. EEG is nonspecific but given CT of head findings consistent with anoxic encephalopathy, brain injury. Continue AEDs per neurology recommendations. Inflammatory markers elevated. Patient was recently hospitalized for COVID-19 pneumonia at the [facility] to being hospitalized [facility]. Patient not a candidate for remdesivir due to hepatic and renal failure. Viral hepatitis panel negative. Patient currently on AC/PRVC mode ventilation with rate of 30, tidal volume 475, FiO2 30% and PEEP of 6. Overall prognosis remains guarded/poor. 07/19/2021 Fevers have resolved over the past 4 days. Continue to monitor off antibiotics per ID recommendations. Leukocytosis persistent for the past 4 days. Patient with questionable seizures/myoclonus from anoxic brain injury. Patient unable to undergo MRI due to body habitus. EEG is nonspecific but given CT of head findings consistent with anoxic encephalopathy, brain injury. Continue AEDs per neurology recommendations. Inflammatory markers elevated. Patient was recently hospitalized for COVID-19 pneumonia at the [facility] to being hospitalized [place]. Patient not a candidate for remdesivir due to hepatic and renal failure. Viral hepatitis panel negative. Patient currently on AC/PRVC mode ventilation with rate of 30, tidal volume 475, FiO2 30% and PEEP of 6. Overall prognosis remains guarded/poor. 09/20/2020 -Surgery consulted for PEG and trach, will continue to follow. 09/21/2020; patient will have PEG and trach by Dr. hayes today. Prognosis is poor. Continue with current management. Scientific Research Manager is following for vent management. 09/22/2020; patient had PEG and trach yesterday. 09/23/2020; continue PEG Tube Feeding. 07/24/2021; continue PEG tube feeding, patient is on Keppra, lorazepam and phenytoin per neurology recommendation. Patient is on hemodialysis and nephrology is following. Management of mechanical ventilation for CCM. 09/25/2020. Continue PEG tube feeding, patient is on Keppra, lorazepam and phenytoin per neurology recommendation. Patient is on hemodialysis and nephrology is following. Management of mechanical ventilation for CCM. Continue PSV/CPAP 07/16. Continue tracheostomy care, secretion control and airway management. 09/26/2020. Patient has tolerated PSV for approximately 48 hours. I discussed with pulmonary possibility of T-piece today. Continue tracheostomy care, se cretion control and airway management. If patient tolerates T-piece trials, patient will be transferred to the floor. Continue AEDs of Keppra and phenytoin as well as Ativan as needed per neurology recommendations. Continue hemodialysis per nephrology. Continue TF with aspiration precautions. 09/27/2020. Patient continues to tolerate PSV 12/6 at 30% FiO2. T-piece trials per pulmonary. Continue tracheostomy care, secretion control and airway management. Continue AEDs of Keppra and phenytoin as well as Ativan as needed per neurology recommendations. Continue hemodialysis per nephrology. Continue TF with aspiration precautions. 09/28/2020. Patient for T-piece trials per pulmonary. Continue hemodialysis per nephrology. Continue tracheostomy care, secretion control and airway manageme nt. Continue AEDs of Keppra and phenytoin as well as Ativan as needed per neurology recommendations. Continue TF with aspiration precautions. 09/29/2020, continue T-piece trials per pulmonary. Continue hemodialysis per nephrology. Continue strict I/O's and labs daily. Monitor for renal recovery. 09/30/2020. Continue T-piece trials per pulmonary recommendations. Continue tracheostomy care, secretion control and airway management. Continue hemodialysis per nephrology. Tight glycemic control. Continue TF with aspiration precautions. 10/01/2020. Patient with T-piece trials and tolerating. Wean to trach collar per pulmonary. Continue tracheostomy care, secretion control and airway paola gement. Continue hemodialysis per nephrology. Tight glycemic control. Continue TF with aspiration precautions. Case management consultation for placement 10/02/20. Continue T-piece trials per pulmonary recommendations. Continue tracheostomy care, secretion control and airway management. Continue hemodialysis per nephrology. Tight glycemic control. Continue TF with aspiration precautions. 10/03/2020. Continue T-piece trials per pulmonology. Continue tracheostomy care, secretion control and airway management. Continue modalities per nephrology. Discharge planning underway. Needs placement to SNF versus hospice. 10/04/2020. Patient remained febrile with temperature 101 F. Ordered blood culture, chest x-ray, urinalysis. Plan to start antibiotics after blood cultures been obtained. Patient remains hemodynamically stable. Plan to discharge to SNF versus inpatient hospice on the way. 10/05/2020. Started on antibiotics yesterday. Awaiting blood culture. He developed atrial fibrillation with RVR and was placed on amiodaron see awaiting placement. E drip with subsequent conversion to SR. Now on amiodarone PO. Discussed with patients - she would like him to go inpatient hospice or a rodent exterminator care facility. As per CM, [facility] not approving LTC placement at this time. As is still undecided about hospice, inpatient hospice is not accepting h im at this time. has placed a referral to a SNF with inpatient dialysis. Awaiting response from the SNF. 10/06/2020. Hb drop noted. Not on therapeutic anticoagulation [atrial fibrillation] due to duration of atrial fibrillation [lasted less than 2 hours] and also drop in hemoglobin. Continue to monitor hemoglobin. Repeat labs ordered today. Vitals stable. Discussed with patient's yesterday 10/07. HR is controlled. Pending placement. As per CM notes, patient denied acceptance at a [facility] as he has [facility] insurance. Will discuss with CM to know other options are available. 10/08. Vitals stable. Will discuss discharge plan with spouse today as it looks like only option left is inpatient hospice. 10/09. Vitals stable. Will discuss discharge plan with spouse today as it looks like only option left is inpatient hospice 10/10. Discussed with patient spouse. Patient spouse asking to see patient in the hospital. liability claims manager on board. Patient has not had hemodialysis since 10/05. Creatinine stable at 4.6. Nephrology on board 10/11. DC planning underway. Patient spouse to see patient in hospital today. Vitals remained stable. Creatinine stable as well. Increase Lantus to 36 units daily. 10/12. Patient started having fever yesterday-temp 102 Fahrenheit. Stat blood cultures were drawn today, urinalysis, urine culture, chest x-ray, procalcitonin ordered. Start on empirical antibiotics for possible hospital acquired pneumonia. ID consulted. H&H shows hemoglobin 4.6 patient will receive 2 units PRBCs.. Check H&H after admission. Check stool guaiac. 10/13. Patient with new sepsis. Follow-up blood, sputum and urine cultures. Continue empiric antibiotics of cefepime and vancomycin. Chest x-ray appears to be unchanged. Urinalysis revealed pyuria. H&H is stabilized from PRBCs. Continue to follow H&H 10/14. Urine culture reveals yeast. Blood cultures thus far negative. Continue empiric antibiotics of cefepime and vancomycin per ID recommendations. Nephro courtney had long discussion regarding initiation of hemodialysis. Route Sales Trainee conveyed to the spouse Yoko yesterday that prognosis is overall not good and his mortality risk is very high. Nephrology to potentially initiate hemodialysis today. I had a follow-up discussion with the spouse Yoko and reiterated poor prognosis. All questions answered. 10/15. Continue empiric antibiotics of cefepime and vancomycin per ID recommendations. Prognosis remains poor. Initiation of hemodialysis per nephrology recommendations. 10/16. PEG tube currently not flushing per nursing. GI consultation for PEG tube dysfunction. Repeat blood cultures have been negative x72 hours. Continue IV antibiotics per ID recommendations. Patient with Acute kidney injury currently nonoliguric likely felt to be due to acute tubular necrosis which has been felt to be multifactorial. Nephrology reports no urgent or emergent indication for renal replacement therapy and that the wants to proceed with renal replacement therapy. Nephrology informed her that patient is high risk for any adverse outcome including mortality risk during dialysis. Overall poor prognosis. 10/17/2020; patient is on PEG tube feeding and functional. Repeat blood cultures were negative. Patient does not have any fever overnight. Patient finished 5 days of IV cefepime and vancomycin yesterday. Acute renal failure followed by nephrology and said patient not a candidate for BLOOD TESTER FOWL. And he is a poor candidate for dialysis. Will follow with nephrology for further recommendation. Overall prognosis is very poor. I order CT head to assess if brain edema is resolved, and to assess for anoxic brain injury. I put a consult for neurology to assess his prognosis and discussed with the family from neurology point of view. 10/18/2020; patient was evaluated by neurology and recommend MRI and EEG, MRI was not done because patient does not fit to the MRI table. CT head is ordered yesterday. Evaluated by ID and recommend to monitor off antibiotics. Nephrology is following. 10/19/2020 patient was evaluated by neurology and recommend MRI and EEG, MRI was not done because patient does not fit to the MRI table. CT head is ordered yesterday. Evaluated by ID and recommend to monitor off antibiotics. Nephrology is following. History Interval history: Patient was seen and evaluated this morning Patient is noncommunicative Patient has PEG and Trach Hospitalist Physical - Physical exam Narrative exam: On mechanical ventilation. Patient has PEG and a trach The patient appeared well nourished and normally developed. Vital signs as documented. Head exam is unremarkable. No scleral icterus . Neck is without jugular venous distension, thyromegaly, or carotid bruits. Lungs are clear to auscultation. Cardiac exam reveals regular rate and Rhythm. Abdominal exam reveals normal bowel sounds, nontender, no organomegaly. Extremities are nonedematous and both femoral and pedal pulses are normal. ABRASIVE BAND WINDER: Patient is noncommunicative - Constitutional Vitals: Temp Pulse Resp BP Pulse Ox 96.9 F L 56 L 19 124/71 100 10/19/20 04:32 10/19/20 04:32 10/19/20 04:32 10/19/20 04:32 10/19/20 08:26 General appearance: Present: other (On mechanical ventilation) HEART Score - HEART Score Troponin: Troponin T 0.076 ng/mL (0.00-0.029) H 09/07/20 14:00 Results - Labs CBC & Chem 7: 10/16/20 07:13 10/18/20 09:54 Labs: Laboratory Last Values WBC 7.8 K/mm3 (4.5-11.0) 10/16/20 07:13 RBC 2.87 M/mm3 (3.65-5.03) L 10/16/20 07:13 Hgb 8.4 gm/dl (11.8-15.2) L 10/16/20 07:13 Hct 25.3 % (35.5-45.6) L 10/16/20 07:13 MCV 88 fl (84-94) 10/16/20 07:13 MCH 29 pg (28-32) 10/16/20 07:13 MCHC 33 % (32-34) 10/16/20 07:13 RDW 18.7 % (13.2-15.2) H 10/16/20 07:13 Plt Count 222 K/mm3 (140-440) 10/16/20 07:13 Lymph % (Auto) 21.2 % (13.4-35.0) 10/16/20 07:13 [place] % (Auto) 14.4 % (0.0-7.3) H 10/16/20 07:13 Eos % (Auto) 1.9 % (0.0-4.3) 10/16/20 07:13 Baso % (Auto) 0.3 % (0.0-1.8) 10/16/20 07:13 Lymph # (Auto) 1.6 K/mm3 (1.2-5.4) 10/16/20 07:13 [place] # (Auto) 1.1 K/mm3 (0.0-0.8) H 10/16/20 07:13 Eos # (Auto) 0.2 K/mm3 (0.0-0.4) 10/16/20 07:13 Baso # (Auto) 0.0 K/mm3 (0.0-0.1) 10/16/20 07:13 Add Manual Diff Complete 10/12/20 08:36 Total Counted 100 10/12/20 08:36 Seg Neutrophils % 62.2 % (40.0-70.0) 10/16/20 07:13 Seg Neuts % (Manual) 75.0 % (40.0-70.0) H 10/12/20 08:36 Band Neutrophils % 8.0 % 09/30/20 06:57 Lymphocytes % (Manual) 17.0 % (13.4-35.0) 10/12/20 08:36 Monocytes % (Manual) 5.0 % (0.0-7.3) 10/12/20 08:36 Eosinophils % (Manual) 2.0 % (0.0-4.3) 10/12/20 08:36 Basophils % (Manual) 1.0 % (0.0-1.8) 10/12/20 08:36 Metamyelocytes % 2.0 % 09/08/20 Unknown Promyelocytes % 0 % 10/04/20 10:32 Nucleated RBC % Not Reportable 10/12/20 08:36 Seg Neutrophils # 4.8 K/mm3 (1.8-7.7) 10/16/20 07:13 Seg Neutrophils # Man 10.6 K/mm3 (1.8-7.7) H 10/12/20 08:36 Band Neutrophils # 0.0 K/mm3 10/12/20 08:36 Lymphocytes # (Manual) 2.4 K/mm3 (1.2-5.4) 10/12/20 08:36 Abs React Lymphs (Man) 0.0 K/mm3 10/12/20 08:36 Monocytes # (Manual) 0.7 K/mm3 (0.0-0.8) 10/12/20 08:36 Eosinophils # (Manual) 0.3 K/mm3 (0.0-0.4) 10/12/20 08:36 Basophils # (Manual) 0.1 K/mm3 (0.0-0.1) 10/12/20 08:36 Metamyelocytes # 0.0 K/mm3 10/12/20 08:36 Myelocytes # 0.0 K/mm3 10/12/20 08:36 Promyelocytes # 0.0 K/mm3 10/12/20 08:36 Blast Cells # 0.0 K/mm3 10/12/20 08:36 WBC Morphology Not Reportable 10/12/20 08:36 Hypersegmented Neuts Not Reportable 10/12/20 08:36 Hyposegmented Neuts Not Reportable 10/12/20 08:36 Hypogranular Neuts Not Reportable 10/12/20 08:36 Smudge Cells Not Reportable 10/12/20 08:36 Toxic Granulation Not Reportable 10/12/20 08:36 Toxic Vacuolation Not Reportable 10/12/20 08:36 Dohle Bodies Not Reportable 10/12/20 08:36 Pelger-Huet Anomaly Not Reportable 10/12/20 08:36 Justus Rods Not Reportable 10/12/20 08:36 Platelet Estimate Consistent w auto 10/12/20 08:36 Clumped Platelets Not Reportable 10/12/20 08:36 Plt Clumps, EDTA Not Reportable 10/12/20 08:36 Large Platelets Not Reportable 10/12/20 08:36 Giant Platelets Not Reportable 10/12/20 08:36 Platelet Satelliting Not Reportable 10/12/20 08:36 Plt Morphology Comment Not Reportable 10/12/20 08:36 RBC Morphology Not Reportable 10/12/20 08:36 Dimorphic RBCs Not Reportable 10/12/20 08:36 Polychromasia Not Reportable 10/12/20 08:36 Hypochromasia 1+ 10/12/20 08:36 Poikilocytosis Not Reportable 10/12/20 08:36 Anisocytosis Not Reportable 10/12/20 08:36 Microcytosis Not Reportable 10/12/20 08:36 Macrocytosis Not Reportable 10/12/20 08:36 Spherocytes Not Reportable 10/12/20 08:36 Pappenheimer Bodies Not Reportable 10/12/20 08:36 Sickle Cells Not Reportable 10/12/20 08:36 Target Cells Not Reportable 10/12/20 08:36 Tear Drop Cells Not Reportable 10/12/20 08:36 Ovalocytes Not Reportable 10/12/20 08:36 Helmet Cells Not Reportable 10/12/20 08:36 [place] Bodies Not Reportable 10/12/20 08:36 [place] Rings Not Reportable 10/12/20 08:36 Marcellus Cells Not Reportable 10/12/20 08:36 Bite Cells Not Reportable 10/12/20 08:36 Crenated Cell Not Reportable 10/12/20 08:36 Elliptocytes Not Reportable 10/12/20 08:36 Acanthocytes (Spur) Not Reportable 10/12/20 08:36 Rouleaux Not Reportable 10/12/20 08:36 Hemoglobin C Crystals Not Reportable 10/12/20 08:36 Schistocytes Not Reportable 10/12/20 08:36 Malaria parasites Not Reportable 10/12/20 08:36 [place] Bodies Not Reportable 10/12/20 08:36 Hem Pathologist Commnt No 10/12/20 08:36 PT 16.1 Sec. (12.2-14.9) H 09/12/20 04:00 INR 1.31 (0.87-1.13) H 09/12/20 04:00 APTT 32.4 Sec. (24.2-36.6) 09/09/20 10:00 D-Dimer 8315.85 ng/mlDDU (0-234) H 09/07/20 14:00 ABG pH 7.468 (7.320-7.450) H 10/02/20 10:16 POC ABG pCO2 37.1 mmHg (32.0-48.0) 10/02/20 10:16 ABG pCO2 33.4 mm Hg 09/11/20 05:40 POC ABG pO2 72.9 mmHg (83-108) L 10/02/20 10:16 ABG pO2 112.1 mm Hg (80.0-90.0) H 09/11/20 05:40 POC ABG HCO3 26.3 10/02/20 10:16 ABG HCO3 28.1 mmol/L (20.0-26.0) H 09/11/20 05:40 ABG O2 Saturation 98.4 % (95.0-99.0) 09/11/20 05:40 ABG O2 Content 11.6 (0.0-44) 09/11/20 05:40 POC ABG Base Excess 2.6 10/02/20 10:16 ABG Base Excess 5.4 mmol/L (-2.0-3.0) H 09/11/20 05:40 ABG Hemoglobin 10.1 (12.0-17.5) L 10/02/20 10:16 ABG Oxyhemoglobin 93.1 (94-98) L 10/02/20 10:16 ABG Carboxyhemoglobin 1.2 % (0.0-5.0) 09/11/20 05:40 ABG Methemoglobin 0.3 (0.0-1.5) 10/02/20 10:16 ABG Sodium 138.5 mmol/L (136.0-145.0) 10/02/20 10:16 ABG Potassium 3.9 mmol/L (3.40-4.50) 10/02/20 10:16 ABG Chloride 108.0 mmol/L (98-107) H 10/02/20 10:16 ABG Glucose 289 mg/dL (65-95) H 10/02/20 10:16 Oxyhemoglobin 96.8 % (95.0-99.0) 09/11/20 05:40 Carboxyhemoglobin 0.8 (0.5-1.5) 10/02/20 10:16 FiO2 35 10/02/20 10:16 Sodium 139 mmol/L (137-145) 10/18/20 09:54 Potassium 4.3 mmol/L (3.6-5.0) 10/18/20 09:54 Chloride 100.4 mmol/L (98-107) 10/18/20 09:54 Carbon Dioxide 30 mmol/L (22-30) 10/18/20 09:54 Anion Gap 13 mmol/L 10/18/20 09:54 BUN 104 mg/dL (9-20) H 10/18/20 09:54 Creatinine 4.6 mg/dL (0.8-1.3) H 10/18/20 09:54 Estimated GFR 16 ml/min 10/18/20 09:54 BUN/Creatinine Ratio 23 % 10/18/20 09:54 Glucose 223 mg/dL (75-100) H 10/18/20 09:54 POC Glucose 244 mg/dL (70-105) H 10/19/20 08:27 Osmolality 353 Mosm/kg 10/13/20 09:29 Lactic Acid 2.90 mmol/L (0.7-2.0) H* 09/17/20 13:52 Uric Acid 8.6 mg/dL (3.5-7.6) H 10/13/20 09:29 Calcium 9.9 mg/dL (8.4-10.2) 10/18/20 09:54 Phosphorus 8.00 mg/dL (2.5-4.5) H 09/08/20 12:02 Magnesium 1.80 mg/dL (1.7-2.3) 09/08/20 12:02 Ferritin > 2000.0 ng/mL (30.0-300.0) H 09/07/20 14:00 Total Bilirubin 0.30 mg/dL (0.1-1.2) 10/06/20 10:12 Direct Bilirubin 0.5 mg/dL (0-0.2) H 09/08/20 05:00 Indirect Bilirubin 0.5 mg/dL 09/08/20 05:00 AST 52 units/L (5-40) H 10/06/20 10:12 ALT 28 units/L (7-56) 10/06/20 10:12 Alkaline Phosphatase 94 units/L (35-129) 10/06/20 10:12 Ammonia 50.0 umol/L (25-60) 09/07/20 14:00 Lactate Dehydrogenase 882 units/L (91-180) H 09/07/20 14:00 Total Creatine Kinase 477 units/L (55-170) H 09/07/20 14:00 Troponin T 0.076 ng/mL (0.00-0.029) H 09/07/20 14:00 C-Reactive Protein 1.10 mg/dL (0.00-1.30) 09/07/20 14:00 Total Protein 8.4 g/dL (6.3-8.2) H 10/06/20 10:12 Albumin 2.3 g/dL (3.9-5) L 10/06/20 10:12 Albumin/Globulin Ratio 0.4 % 10/06/20 10:12 Triglycerides 220 mg/dL (2-149) H 09/12/20 Unknown Procalcitonin 2.03 ng/mL (<0.15) 10/12/20 08:19 TSH 2.290 mlU/mL (0.270-4.200) 09/07/20 14:00 Arterial Blood Glucose 289 mg/dL (65-95) H 10/02/20 10:16 Arterial Blood Ionized Calcium 5.2 mg/dL (4.6-5.3) 10/02/20 10:16 Urine Color Yellow (Yellow) 10/13/20 14:45 Urine Turbidity Slightly-cloudy (Clear) 10/13/20 14:45 Urine pH 5.0 (5.0-7.0) 10/13/20 14:45 Ur Specific [place] 1.014 (1.003-1.030) 10/13/20 14:45 Urine Protein 100 mg/dl mg/dL (Negative) 10/13/20 14:45 Urine Glucose (UA) 50 mg/dL (Negative) 10/13/20 14:45 Urine Ketones Neg mg/dL (Negative) 10/13/20 14:45 Urine Blood Mod (Negative) 10/13/20 14:45 Urine Nitrite Neg (Negative) 10/13/20 14:45 Urine Bilirubin Neg (Negative) 10/13/20 14:45 Urine Urobilinogen < 2.0 mg/dL (<2.0) 10/13/20 14:45 Ur Leukocyte Esterase Neg (Negative) 10/13/20 14:45 Urine WBC (Auto) 6.0 /HPF (0.0-6.0) 10/13/20 14:45 Urine RBC (Auto) 29.0 /HPF (0.0-6.0) 10/13/20 14:45 U Epithel Cells (Auto) 1.0 /HPF (0-13.0) 10/13/20 14:45 Urine Bacteria (Auto) 2+ /HPF (Negative) 10/13/20 14:45 Urine WBC Clumps 3+ /HPF 10/12/20 10:25 Hyaline Casts 1 /LPF 10/05/20 09:15 Urine Mucus Few /HPF 10/13/20 14:45 Urine Yeast (Budding) 3+ /HPF 10/13/20 14:45 Urine Sperm Few /HPF (SUBSTATION OPERATOR AUTOMATIC) 10/13/20 14:45 Urine Creatinine < 4.2 mg/dL (0.1-20.0) 10/13/20 14:45 Urine Sodium 10 mmol/L 10/13/20 14:45 Random Vancomycin 12.4 ug/mL (0-40.0) 10/15/20 06:52 Salicylates < 0.3 mg/dL (2.8-20.0) L 09/07/20 14:00 Acetaminophen 5.0 ug/mL (10.0-30.0) L 09/07/20 14:00 Valproic Acid 58.9 ug/mL (50-100) 10/04/20 04:55 Plasma/Serum Alcohol < 0.01 % (0-0.07) 09/07/20 14:00 Coronavirus (PCR) Negative (Negative) 10/03/20 10:01 Hepatitis A IgM Ab Non-reactive (NonReactive) 09/07/20 14:00 Hep Bs Antigen Non-reactive (Negative) 09/07/20 14:00 Hep B Core IgM Ab Non-reactive (NonReactive) 09/07/20 14:00 Hepatitis C Antibody Non-reactive (NonReactive) 09/07/20 14:00 HIV 1&2 Antibody Rapid Non react (Non React) 09/07/20 14:34 HIV P24 Antigen Non react (Non React) 09/07/20 14:34 Blood Type O POSITIVE 10/12/20 11:04 Antibody Screen Negative 10/12/20 11:04 Crossmatch See Detail 10/12/20 11:04 Mae/IV: Voiding Method Condom Catheter IV Catheter Type [Right Triple Lumen Cath Femoral] IV Catheter Type [Left Peripheral IV Antecubital] IV Catheter Type [Left Hand] Peripheral IV IV Catheter Type [Right Peripheral IV Antecubital] Active Medications - Current Medications Current Medications: Generic Name Dose Route Start Last Admin Trade Name Freq PRN Reason Stop Dose Admin Acetaminophen 650 mg 10/02/20 09:00 10/12/20 09:31 Acetaminophen 325 Mg/10.15 Ml Oral Liqd Unit Dose PO 650 mg Q4HR PRN Administration Non Cardiac Pain or Temp>100.5 Amiodarone HCl 200 mg 10/05/20 11:00 10/18/20 22:14 Amiodarone 200 Mg Tab PO 200 mg BID TAYLOR Administration Lipase/Protease/Amylase 1 each 09/09/20 09:40 10/18/20 09:46 Lipase 10,500/Protease 25,000/Amylase 43,750 (Units) Dr Armenta FEEDTUBE 1 each PRN PRN Administration For Clogged Feeding Tube Hydralazine HCl 50 mg 09/23/20 14:00 10/19/20 05:36 Hydralazine 25 Mg Tab PO Not Given Q8HR [facility] Sodium Chloride 1,000 mls @ 75 mls/hr 10/18/20 13:00 Nacl 0.9% 1000 Ml IV DIRECT TAYLOR Insulin Glargine 40 units 10/19/20 09:28 Insulin Glargine 100 Units/Ml SUB-Q DAILY [facility] Insulin Human Lispro 0 unit 09/12/20 12:00 10/19/20 05:26 Insulin Lispro 100 Unit/Ml SUB-Q 4 unit Q6HR TAYLOR Administration Protocol Lansoprazole 30 mg 10/13/20 10:00 10/18/20 09:19 Lansoprazole 30 Mg Solutab FEEDTUBE 30 mg DAILY TAYLOR Administration Levetiracetam 1,500 mg 09/28/20 10:00 10/18/20 22:13 Levetiracetam 500 Mg/5 Ml Oral Liqd PO 1,500 mg BID TAYLOR Administration Multivitamins 5 ml 09/09/20 12:00 10/18/20 11:56 Multivitamins 5 Ml Oral Liquid PO Not Given QDAY [facility] Ondansetron HCl 4 mg 09/07/20 17:55 09/19/20 04:00 Ondansetron 4 Mg/2 Ml Inj IV 4 mg Q8H PRN Administration Nausea And Vomiting Senna/Docusate Sodium 2 tab 09/20/20 11:00 Sennosides/Docusate Sodium 8.6/50 Mg Tab PO BID PRN Laxative Effect Simple Syrup 15 ml 09/09/20 09:40 09/17/20 17:43 Simple Syrup 15 Ml FEEDTUBE 15 ml PRN PRN Administration Hypoglycemia Simple Syrup 30 ml 09/09/20 09:40 Simple Syrup 15 Ml FEEDTUBE PRN PRN Hypoglycemia Sodium Bicarbonate 325 mg 09/09/20 09:40 10/18/20 09:46 Sodium Bicarbonate 325 Mg Tab FEEDTUBE 325 mg PRN PRN Administration For Clogged Feeding Tube Sodium Chloride 10 ml 09/07/20 22:00 10/18/20 09:19 Sodium Chloride 0.9% 10 Ml Flush Syringe IV 10 ml BID TAYLOR Administration Sodium Chloride 10 ml 09/07/20 17:55 Sodium Chloride 0.9% 10 Ml Flush Syringe IV PRN PRN LINE FLUSH Valproic Acid 1,000 mg 09/28/20 10:00 10/18/20 22:13 Valproic Acid 250 Mg/5 Ml Oral Liqd FEEDTUBE 1,000 mg BID TAYLOR Administration Nutrition/Malnutrition Assess - Dietary Evaluation Nutrition/Malnutrition Findings: Nutrition Notes Start: 09/08/20 12:01 Freq: Status: Active Protocol: Document 10/19/20 08:51 AT (Rec: 10/19/20 08:59 AT [id number]) Co-Sign 10/19/20 08:51 CW Nutrition Notes Initial or Follow up Reassessment Current Diagnosis Acute Kidney Injury, Respiratory Failure Other Pertinent Diagnosis s/p cardiac arrest, COVID(-), Anoxic Encephalopathy, Pneu, Tubular Necrosis Current Diet Nepro 1.8 at 45 mL/hr (goal rate) Labs/Tests POC BG 244 3/10 BUN 104 Cr 4.6 Pertinent Medications Humalog Pancreaze NS at 75 mL/hr Height 6 ft Weight 98.6 kg [place] Body Weight (kg) 80.90 BMI 29.5 Weight change and time frame Weight change noted, possibly due to error. Yesterday, weight recorded at 157.1 kg Percent of energy/protein needs met: 100%/59% Burn Absent Trauma Absent GI Symptoms None Difficulty In Swallowing Food Allergy No Skin Integrity/Comment pressure ulcer to lips Current % PO Negligible Fluid Accumulation Mild (non-severe) #3 Nutrition Diagnosis Increased nutrient needs ( specify in comment below) Diagnosis Progress(for reassessment Continues documentation) #1 Nutrition Diagnosis Inadequate oral intake Diagnosis Progress(for reassessment Continues documentation) Is patient on ventilator? No Is Patient Ambulatory and/or Out of Bed No REE-([facility]-confined to bed) 2181.756 Kcal/Kg value to use for calculation 19 Approximate Energy Requirements Using 1873 kcal/Kg Calculation Used for Recommendations Kcal/kg Additional Notes PRO needs: (1.25-1.5 g/kg AdBW )
[2020-10-19] MEDS: VALPROIC ACID 250 MG/5 ML ORAL LIQD FEEDTUBE SCH ×2 (10:08→21:48)
[2020-10-19] MEDS: AMIODARONE 200 MG TAB PO SCH ×2 (10:09→21:48)
[2020-10-19] MEDS: LANSOPRAZOLE 30 MG SOLUTAB FEEDTUBE SCH (10:09)
[2020-10-19] MEDS: levETIRAcetam 500 MG/5 ML ORAL LIQD PO SCH ×2 (10:09→21:48)
[2020-10-19] MEDS: INSULIN GLARGINE 100 UNITS/ML SUB-Q SCH (10:11)
[2020-10-19] MEDS: MULTIVITAMINS 5 ML ORAL LIQUID PO SCH (10:14)
--- NOTE | 2020-10-19 13:58 | Progress Note ---
Assessment and Plan Assessment and plan #Acute kidney injury on chronic kidney disease, baseline creatinine around 1.8, briefly on iHD, currently nonoliguric likely felt to be due to acute tubular necrosis (multifactorial). No emergent indication for renal replacement therapy. Continue IVF until free water flushes are resumed. Elevated BUN likely due to tube feeds. He is a poor candidate for renal replacement therapy. Check BMP daily. Maintain intake and output logs, avoid any nephrotoxic medication Anemia with renal failure, s/p erythropoietin Keep MAP > 65 Renally dose medications - antibiotics and antiepileptics #Out of hospital cardiac arrest #Anoxic encephalopathy, s/p trach and PEG. Repeat CT head read pending, neurology evaluation noted. #Bilateral pneumonia due to Covid infection - S/p completion of antibiotic course - ID following, s/p trach #Recommend goals of care discussion #Prognosis guarded Subjective Date of service: 10/19/20 Principal diagnosis: Abnormal LFTs, s/p cardiac arrest, acute kidney injury with ATN Interval history: No change in mental status Good UOP following IVF Patient was seen for his renal issues Nursing, interdisciplinary and consult notes were reviewed Vitals, input and output, medications and labs were reviewed Objective - Exam Narrative Exam: General: No acute distress HEENT: Oral mucosa moist Neck: Supple, no JVD Chest: Trached. Heart: RRR, S1 and S2, no pericardial rub Abdomen: Soft, nontender, no renal bruit Extremity: No peripheral cyanosis, edema Neurological: Unresponsive Dermatology: No skin rash Psych: No agitation Musculoskeletal: No joint effusion - Vital Signs Vital signs: Vital Signs - 12hr 10/19/20 10/19/20 10/19/20 03:00 04:32 08:00 Temperature 96.9 F L Pulse Rate 56 L Respiratory 19 Rate Blood Pressure 124/71 O2 Sat by Pulse 98 Oximetry O2 Sat by Pulse 100 100 Oximetry [ Assessment] 10/19/20 10/19/20 10/19/20 08:17 08:26 11:58 Temperature Pulse Rate 56 L 59 L Respiratory 20 18 Rate Blood Pressure 135/71 141/77 O2 Sat by Pulse 100 100 95 Oximetry O2 Sat by Pulse Oximetry [ Assessment] - Lab 10/16/20 07:13 10/18/20 09:54 Most recent lab results ABG pH 7.468 (7.320-7.450) H 10/02/20 10:16 ABG pCO2 33.4 mm Hg 09/11/20 05:40 ABG pO2 112.1 mm Hg (80.0-90.0) H 09/11/20 05:40 ABG HCO3 28.1 mmol/L (20.0-26.0) H 09/11/20 05:40 ABG O2 Saturation 98.4 % (95.0-99.0) 09/11/20 05:40 Calcium 9.9 mg/dL (8.4-10.2) 10/18/20 09:54 Phosphorus 8.00 mg/dL (2.5-4.5) H 09/08/20 12:02 Magnesium 1.80 mg/dL (1.7-2.3) 09/08/20 12:02 Urine Creatinine < 4.2 mg/dL (0.1-20.0) 10/13/20 14:45 Urine Sodium 10 mmol/L 10/13/20 14:45 Medications & Allergies - Medications Allergies/Adverse Reactions: Allergies No Known Allergies Allergy (Verified 09/21/20 21:00) Verified with , no known drug allergies. Home Medications: Home Medications Medication Instructions Recorded Confirmed Last Taken Type Albuterol Sulfate 60 mcg IH PRN 09/11/20 09/11/20 Unknown History Cholecalciferol (Vitamin D3) 25 tab PO DAILY 09/11/20 09/11/20 Unknown History Cozaar 25 tab PO DAILY 09/11/20 09/11/20 Unknown History HumaLOG 14 unit SQ AC 09/11/20 09/11/20 Unknown History Hydralazine HCl 50 tab PO TID 09/11/20 09/11/20 Unknown History Isosorbide Dinitrate 30 mg PO DAILY 09/11/20 09/11/20 Unknown History Lantus VIAL 54 units SQ HS 09/11/20 09/11/20 Unknown History Lasix 20 tab PO DAILY 09/11/20 09/11/20 Unknown History Nifedipine 30 tab PO DAILY 09/11/20 09/11/20 Unknown History Active Medications: Generic Name Dose Route Start Last Admin Trade Name Freq PRN Reason Stop Dose Admin Acetaminophen 650 mg 10/02/20 09:00 10/12/20 09:31 Acetaminophen 325 Mg/10.15 Ml Oral Liqd Unit Dose PO 650 mg Q4HR PRN Administration Non Cardiac Pain or Temp>100.5 Amiodarone HCl 200 mg 10/05/20 11:00 10/19/20 10:09 Amiodarone 200 Mg Tab PO 200 mg BID TAYLOR Administration Lipase/Protease/Amylase 1 each 09/09/20 09:40 10/18/20 09:46 Lipase 10,500/Protease 25,000/Amylase 43,750 (Units) Dr Armenta FEEDTUBE 1 each PRN PRN Administration For Clogged Feeding Tube Hydralazine HCl 50 mg 09/23/20 14:00 10/19/20 05:36 Hydralazine 25 Mg Tab PO Not Given Q8HR TAYLOR Sodium Chloride 1,000 mls @ 75 mls/hr 10/18/20 13:00 Nacl 0.9% 1000 Ml IV DIRECT TAYLOR Insulin Glargine 40 units 10/19/20 10:00 10/19/20 10:11 Insulin Glargine 100 Units/Ml SUB-Q 40 units DAILY TAYLOR Administration Insulin Human Lispro 0 unit 09/12/20 12:00 10/19/20 12:36 Insulin Lispro 100 Unit/Ml SUB-Q 4 unit Q6HR TAYLOR Administration Protocol Lansoprazole 30 mg 10/13/20 10:00 10/19/20 10:09 Lansoprazole 30 Mg Solutab FEEDTUBE 30 mg DAILY TAYLOR Administration Levetiracetam 1,500 mg 09/28/20 10:00 10/19/20 10:09 Levetiracetam 500 Mg/5 Ml Oral Liqd PO 1,500 mg BID TAYLOR Administration Multivitamins 5 ml 09/09/20 12:00 10/19/20 10:14 Multivitamins 5 Ml Oral Liquid PO 5 ml QDAY TAYLOR Administration Ondansetron HCl 4 mg 09/07/20 17:55 09/19/20 04:00 Ondansetron 4 Mg/2 Ml Inj IV 4 mg Q8H PRN Administration Nausea And Vomiting Senna/Docusate Sodium 2 tab 09/20/20 11:00 Sennosides/Docusate Sodium 8.6/50 Mg Tab PO BID PRN Laxative Effect Simple Syrup 15 ml 09/09/20 09:40 09/17/20 17:43 Simple Syrup 15 Ml FEEDTUBE 15 ml PRN PRN Administration Hypoglycemia Simple Syrup 30 ml 09/09/20 09:40 Simple Syrup 15 Ml FEEDTUBE PRN PRN Hypoglycemia Sodium Bicarbonate 325 mg 09/09/20 09:40 10/18/20 09:46 Sodium Bicarbonate 325 Mg Tab FEEDTUBE 325 mg PRN PRN Administration For Clogged Feeding Tube Sodium Chloride 10 ml 09/07/20 22:00 10/19/20 10:11 Sodium Chloride 0.9% 10 Ml Flush Syringe IV 10 ml BID TAYLOR Administration Sodium Chloride 10 ml 09/07/20 17:55 Sodium Chloride 0.9% 10 Ml Flush Syringe IV PRN PRN LINE FLUSH Valproic Acid 1,000 mg 09/28/20 10:00 10/19/20 10:08 Valproic Acid 250 Mg/5 Ml Oral Liqd FEEDTUBE 1,000 mg BID TAYLOR Administration
--- NOTE | 2020-10-19 19:45 | Cat Scan Report ---
NONENHANCED CT SCAN OF THE HEAD: INDICATION / CLINICAL INFORMATION: 65 years Male; Follow-up of brain edema. TECHNIQUE: Routine CT head without contrast. All CT scans at this location are performed using CT dos e reduction for ALARA by means of automated exposure control. COMPARISON: CT scan of the head from 09/16/2020 and 09/11/2020 FINDINGS: BRAIN / INTRACRANIAL CONTENTS: Since the last CT scan, diffuse brain edema has decreased significantly. High convexity cortical sulc i and sylvian fissure are seen well. Since the last 2 CT scans, lateral ventricle and third ventricle are larger due to decrease in the brain edema. Gyriform areas of increased CT attenuation is seen in both cerebral hemispheres almost symmetric sug gesting laminar cortical necrosis. Homogenous low-attenuation areas seen in the centrum semiovale and quiros radiata. Basal ganglia stru ctures could not be well delineated. Cerebellar hemispheres and brainstem appear normal. CRANIOCERVICAL JUNCTION: No significant abnormality. ORBITS: No significant abnormality of visualized orbits. SINUSES / MASTOIDS: Both maxillary sinuses, anterior ethmoid air cells, right posterior ethmoid air c ell, both sphenoid sinuses and left frontal sinus is opacified. Mastoid air cells are opacified bilat erally. ADDITIONAL FINDINGS: None. IMPRESSION: Brain swelling has decreased considerably Laminar cortical necrosis Signer Name: Sujit Best MD Signed: 10/19/2020 7:40 PM Workstation Name: [id number]
[2020-10-19 20:36] LABS: Calcium 10.1 mg/dL (8.4-10.2)
[2020-10-19] MEDS: LIPASE 10,500/PROTEASE 25,000/AMYLASE 43,750 (UNITS) DR CAP FEEDTUBE PRN (22:12)
[2020-10-19] MEDS: SIMPLE SYRUP 15 ML FEEDTUBE PRN (22:12)
[2020-10-19] MEDS: SODIUM BICARBONATE 325 MG TAB FEEDTUBE PRN (22:12)
[2020-10-20] MEDS: hydrALAZINE 25 MG TAB PO SCH ×3 (06:36→22:55)
[2020-10-20] MEDS: INSULIN LISPRO 100 UNIT/ML SUB-Q SCH ×4 (06:38→17:32)
[2020-10-20] MEDS: SODIUM BICARBONATE 325 MG TAB FEEDTUBE PRN ×2 (06:41→16:10)
[2020-10-20] MEDS: VALPROIC ACID 250 MG/5 ML ORAL LIQD FEEDTUBE SCH ×2 (09:01→22:55)
[2020-10-20] MEDS: levETIRAcetam 500 MG/5 ML ORAL LIQD PO SCH ×2 (09:01→22:55)
[2020-10-20] MEDS: LANSOPRAZOLE 30 MG SOLUTAB FEEDTUBE SCH (09:02)
--- NOTE | 2020-10-20 09:17 | Progress Note ---
Assessment and Plan Assessment and plan: S/p cardiopulmonary arrest Toxic metabolic encephalopathy +/-anoxic injury Acute hypoxic respiratory failure Acute kidney injury Seizure disorder Hyperkalemia COVID-19 pneumonia Sepsis Transaminitis Morbid obesity. 09/15/2020. MRI brain for further evaluation. Continue AEDs of valproic acid and Keppra. Continue hemodialysis per nephrology recommendations. Overall prognosis remains guarded and poor. 09/16/2020. ID recommends continue to monitor patient off of antibiotics. Fever most likely of central etiology. Patient with questionable seizures versus myoclonus from anoxic brain injury. Patient unable to undergo MRI due to body habitus. Continue AEDs per neurology recommendations. Inflammatory markers elevated. Patient was recently hospitalized for COVID-19 pneumonia at the [place] prior to being hospitalized here. Patient not a candidate for remdesivir due to hepatic and renal failure. Viral hepatitis panel negative. Overall prognosis extremely poor. 09/17/2020. Fevers have resolved over the past 48 hours. Continue to monitor off antibiotics per ID recommendations. Patient with questionable seizures versus myoclonus from anoxic brain injury. Patient unable to undergo MRI due to body habitus. EEG is nonspecific but given CT of head findings consistent with anoxic encephalopathy, brain injury. Continue AEDs per neurology recommendations. Inflammatory markers elevated. Patient was recently hospitalized for COVID-19 pneumonia at the [place] prior to being hospitalized here. Patient not a candidate for remdesivir due to hepatic and renal failure. Viral hepatitis panel negative. Patient is s/p emergent HD on Friday (hyperK) and Friday - 09/08. Patient also S/p HD 09/15. Continue hemodialysis per nephrology recommendations. Patient currently on AC/PRVC mode ventilation with rate of 30, tidal volume 475, FiO2 30% and PEEP of 6. As stated in neuro note, overall prognosis is very poor. 09/18/2020. Fevers have resolved over the past 72 hours. Continue to monitor off antibiotics per ID recommendations. Leukocytosis persistent for the past 4 days. Patient with questionable seizures/myoclonus from anoxic brain injury. Patient unable to undergo MRI due to body habitus. EEG is nonspecific but given CT of head findings consistent with anoxic encephalopathy, brain injury. Continue AEDs per neurology recommendations. Inflammatory markers elevated. Patient was recently hospitalized for COVID-19 pneumonia at the [place] prior to being hospitalized here. Patient not a candidate for remdesivir due to hepatic and renal failure. Viral hepatitis panel negative. Patient currently on AC/PRVC mode ventilation with rate of 30, tidal volume 475, FiO2 30% and PEEP of 6. Overall prognosis remains guarded/poor. 07/19/2021 Fevers have resolved over the past 4 days. Continue to monitor off antibiotics per ID recommendations. Leukocytosis persistent for the past 4 days. Patient with questionable seizures/myoclonus from anoxic brain injury. Patient unable to undergo MRI due to body habitus. EEG is nonspecific but given CT of head findings consistent with anoxic encephalopathy, brain injury. Continue AEDs per neurology recommendations. Inflammatory markers elevated. Patient was recently hospitalized for COVID-19 pneumonia at the [place] prior to being hospitalized here. Patient not a candidate for remdesivir due to hepatic and renal failure. Viral hepatitis panel negative. Patient currently on AC/PRVC mode ventilation with rate of 30, tidal volume 475, FiO2 30% and PEEP of 6. Overall prognosis remains guarded/poor. 09/20/2020 -Surgery consulted for PEG and trach, will continue to follow. 09/21/2020; patient will have PEG and trach by Dr. hayes today. Prognosis is poor. Continue with current management. Seamless Tube Mill Operator is following for vent management. 09/22/2020; patient had PEG and trach yesterday. 09/23/2020; continue PEG Tube Feeding. 07/24/2021; continue PEG tube feeding, patient is on Keppra, lorazepam and phenytoin per neurology recommendation. Patient is on hemodialysis and nephrology is following. Management of mechanical ventilation for CCM. 09/25/2020. Continue PEG tube feeding, patient is on Keppra, lorazepam and phenytoin per neurology recommendation. Patient is on hemodialysis and nephrology is following. Management of mechanical ventilation for CCM. Continue PSV/CPAP 07/16. Continue tracheostomy care, secretion control and airway management. 09/26/2020. Patient has tolerated PSV for approximately 48 hours. I discussed with pulmonary possibility of T-piece today. Continue tracheostomy care, se cretion control and airway management. If patient tolerates T-piece trials, patient will be transferred to the floor. Continue AEDs of Keppra and phenytoin as well as Ativan as needed per neurology recommendations. Continue hemodialysis per nephrology. Continue TF with aspiration precautions. 09/27/2020. Patient continues to tolerate PSV 12/6 at 30% FiO2. T-piece trials per pulmonary. Continue tracheostomy care, secretion control and airway management. Continue AEDs of Keppra and phenytoin as well as Ativan as needed per neurology recommendations. Continue hemodialysis per nephrology. Continue TF with aspiration precautions. 09/28/2020. Patient for T-piece trials per pulmonary. Continue hemodialysis per nephrology. Continue tracheostomy care, secretion control and airway manageme nt. Continue AEDs of Keppra and phenytoin as well as Ativan as needed per neurology recommendations. Continue TF with aspiration precautions. 09/29/2020, continue T-piece trials per pulmonary. Continue hemodialysis per nephrology. Continue strict I/O's and labs daily. Monitor for renal recovery. 09/30/2020. Continue T-piece trials per pulmonary recommendations. Continue tracheostomy care, secretion control and airway management. Continue hemodialysis per nephrology. Tight glycemic control. Continue TF with aspiration precautions. 10/01/2020. Patient with T-piece trials and tolerating. Wean to trach collar per pulmonary. Continue tracheostomy care, secretion control and airway paola gement. Continue hemodialysis per nephrology. Tight glycemic control. Continue TF with aspiration precautions. Case management consultation for placement 10/02/20. Continue T-piece trials per pulmonary recommendations. Continue tracheostomy care, secretion control and airway management. Continue hemodialysis per nephrology. Tight glycemic control. Continue TF with aspiration precautions. 10/03/2020. Continue T-piece trials per pulmonology. Continue tracheostomy care, secretion control and airway management. Continue modalities per nephrology. Discharge planning underway. Needs placement to SNF versus hospice. 10/04/2020. Patient remained febrile with temperature 101 F. Ordered blood culture, chest x-ray, urinalysis. Plan to start antibiotics after blood cultures been obtained. Patient remains hemodynamically stable. Plan to discharge to SNF versus inpatient hospice on the way. 10/05/2020. Started on antibiotics yesterday. Awaiting blood culture. He developed atrial fibrillation with RVR and was placed on amiodaron see awaiting placement. E drip with subsequent conversion to SR. Now on amiodarone PO. Discussed with patients - she would like him to go inpatient hospice or a technician terminal and repeater care facility. As per CM, [facility] not approving LTC placement at this time. As is still undecided about hospice, inpatient hospice is not accepting h im at this time. has placed a referral to a SNF with inpatient dialysis. Awaiting response from the SNF. 10/06/2020. Hb drop noted. Not on therapeutic anticoagulation [atrial fibrillation] due to duration of atrial fibrillation [lasted less than 2 hours] and also drop in hemoglobin. Continue to monitor hemoglobin. Repeat labs ordered today. Vitals stable. Discussed with patient's yesterday 10/07. HR is controlled. Pending placement. As per CM notes, patient denied acceptance at a [facility] as he has [facility] insurance. Will discuss with CM to know other options are available. 10/08. Vitals stable. Will discuss discharge plan with spouse today as it looks like only option left is inpatient hospice. 10/09. Vitals stable. Will discuss discharge plan with spouse today as it looks like only option left is inpatient hospice 10/10. Discussed with patient spouse. Patient spouse asking to see patient in the hospital. reo asset manager on board. Patient has not had hemodialysis since 10/05. Creatinine stable at 4.6. Nephrology on board 10/11. DC planning underway. Patient spouse to see patient in hospital today. Vitals remained stable. Creatinine stable as well. Increase Lantus to 36 units daily. 10/12. Patient started having fever yesterday-temp 102 Fahrenheit. Stat blood cultures were drawn today, urinalysis, urine culture, chest x-ray, procalcitonin ordered. Start on empirical antibiotics for possible hospital acquired pneumonia. ID consulted. H&H shows hemoglobin 4.6 patient will receive 2 units PRBCs.. Check H&H after admission. Check stool guaiac. 10/13. Patient with new sepsis. Follow-up blood, sputum and urine cultures. Continue empiric antibiotics of cefepime and vancomycin. Chest x-ray appears to be unchanged. Urinalysis revealed pyuria. H&H is stabilized from PRBCs. Continue to follow H&H 10/14. Urine culture reveals yeast. Blood cultures thus far negative. Continue empiric antibiotics of cefepime and vancomycin per ID recommendations. Nephro courtney had long discussion regarding initiation of hemodialysis. Cloth Carrier conveyed to the spouse Yoko yesterday that prognosis is overall not good and his mortality risk is very high. Nephrology to potentially initiate hemodialysis today. I had a follow-up discussion with the spouse Yoko and reiterated poor prognosis. All questions answered. 10/15. Continue empiric antibiotics of cefepime and vancomycin per ID recommendations. Prognosis remains poor. Initiation of hemodialysis per nephrology recommendations. 10/16. PEG tube currently not flushing per nursing. GI consultation for PEG tube dysfunction. Repeat blood cultures have been negative x72 hours. Continue IV antibiotics per ID recommendations. Patient with Acute kidney injury currently nonoliguric likely felt to be due to acute tubular necrosis which has been felt to be multifactorial. Nephrology reports no urgent or emergent indication for renal replacement therapy and that the wants to proceed with renal replacement therapy. Nephrology informed her that patient is high risk for any adverse outcome including mortality risk during dialysis. Overall poor prognosis. 10/17/2020; patient is on PEG tube feeding and functional. Repeat blood cultures were negative. Patient does not have any fever overnight. Patient finished 5 days of IV cefepime and vancomycin yesterday. Acute renal failure followed by nephrology and said patient not a candidate for RN ADVANCED. And he is a poor candidate for dialysis. Will follow with nephrology for further recommendation. Overall prognosis is very poor. I order CT head to assess if brain edema is resolved, and to assess for anoxic brain injury. I put a consult for neurology to assess his prognosis and discussed with the family from neurology point of view. 10/18/2020; patient was evaluated by neurology and recommend MRI and EEG, MRI was not done because patient does not fit to the MRI table. CT head is ordered yesterday. Evaluated by ID and recommend to monitor off antibiotics. Nephrology is following. 10/19/2020 patient was evaluated by neurology and recommend MRI and EEG, MRI was not done because patient does not fit to the MRI table. CT head is ordered yesterday. Evaluated by ID and recommend to monitor off antibiotics. Nephrology is following. 10/20/2020; CT head was done and showed significant decrease in brain swelling. Nephrology is following. Pending SNF placement. History Interval history: Patient was seen and evaluated this morning Patient is noncommunicative Patient has PEG and Trach Hospitalist Physical - Physical exam Narrative exam: On mechanical ventilation. Patient has PEG and a trach The patient appeared well nourished and normally developed. Vital signs as documented. Head exam is unremarkable. No scleral icterus . Neck is without jugular venous distension, thyromegaly, or carotid bruits. Lungs are clear to auscultation. Cardiac exam reveals regular rate and Rhythm. Abdominal exam reveals normal bowel sounds, nontender, no organomegaly. Extremities are nonedematous and both femoral and pedal pulses are normal. HOT DIPPER: Patient is noncommunicative - Constitutional Vitals: Temp Pulse Resp BP Pulse Ox 99.7 F H 88 19 134/68 96 10/20/20 08:37 10/20/20 08:37 10/20/20 08:37 10/20/20 08:37 10/20/20 08:37 General appearance: Present: other (On mechanical ventilation) HEART Score - HEART Score Troponin: Troponin T 0.076 ng/mL (0.00-0.029) H 09/07/20 14:00 Results - Labs CBC & Chem 7: 10/16/20 07:13 10/19/20 19:14 Labs: Laboratory Last Values WBC 7.8 K/mm3 (4.5-11.0) 10/16/20 07:13 RBC 2.87 M/mm3 (3.65-5.03) L 10/16/20 07:13 Hgb 8.4 gm/dl (11.8-15.2) L 10/16/20 07:13 Hct 25.3 % (35.5-45.6) L 10/16/20 07:13 MCV 88 fl (84-94) 10/16/20 07:13 MCH 29 pg (28-32) 10/16/20 07:13 MCHC 33 % (32-34) 10/16/20 07:13 RDW 18.7 % (13.2-15.2) H 10/16/20 07:13 Plt Count 222 K/mm3 (140-440) 10/16/20 07:13 Lymph % (Auto) 21.2 % (13.4-35.0) 10/16/20 07:13 [place] % (Auto) 14.4 % (0.0-7.3) H 10/16/20 07:13 Eos % (Auto) 1.9 % (0.0-4.3) 10/16/20 07:13 Baso % (Auto) 0.3 % (0.0-1.8) 10/16/20 07:13 Lymph # (Auto) 1.6 K/mm3 (1.2-5.4) 10/16/20 07:13 [place] # (Auto) 1.1 K/mm3 (0.0-0.8) H 10/16/20 07:13 Eos # (Auto) 0.2 K/mm3 (0.0-0.4) 10/16/20 07:13 Baso # (Auto) 0.0 K/mm3 (0.0-0.1) 10/16/20 07:13 Add Manual Diff Complete 10/12/20 08:36 Total Counted 100 10/12/20 08:36 Seg Neutrophils % 62.2 % (40.0-70.0) 10/16/20 07:13 Seg Neuts % (Manual) 75.0 % (40.0-70.0) H 10/12/20 08:36 Band Neutrophils % 8.0 % 09/30/20 06:57 Lymphocytes % (Manual) 17.0 % (13.4-35.0) 10/12/20 08:36 Monocytes % (Manual) 5.0 % (0.0-7.3) 10/12/20 08:36 Eosinophils % (Manual) 2.0 % (0.0-4.3) 10/12/20 08:36 Basophils % (Manual) 1.0 % (0.0-1.8) 10/12/20 08:36 Metamyelocytes % 2.0 % 09/08/20 Unknown Promyelocytes % 0 % 10/04/20 10:32 Nucleated RBC % Not Reportable 10/12/20 08:36 Seg Neutrophils # 4.8 K/mm3 (1.8-7.7) 10/16/20 07:13 Seg Neutrophils # Man 10.6 K/mm3 (1.8-7.7) H 10/12/20 08:36 Band Neutrophils # 0.0 K/mm3 10/12/20 08:36 Lymphocytes # (Manual) 2.4 K/mm3 (1.2-5.4) 10/12/20 08:36 Abs React Lymphs (Man) 0.0 K/mm3 10/12/20 08:36 Monocytes # (Manual) 0.7 K/mm3 (0.0-0.8) 10/12/20 08:36 Eosinophils # (Manual) 0.3 K/mm3 (0.0-0.4) 10/12/20 08:36 Basophils # (Manual) 0.1 K/mm3 (0.0-0.1) 10/12/20 08:36 Metamyelocytes # 0.0 K/mm3 10/12/20 08:36 Myelocytes # 0.0 K/mm3 10/12/20 08:36 Promyelocytes # 0.0 K/mm3 10/12/20 08:36 Blast Cells # 0.0 K/mm3 10/12/20 08:36 WBC Morphology Not Reportable 10/12/20 08:36 Hypersegmented Neuts Not Reportable 10/12/20 08:36 Hyposegmented Neuts Not Reportable 10/12/20 08:36 Hypogranular Neuts Not Reportable 10/12/20 08:36 Smudge Cells Not Reportable 10/12/20 08:36 Toxic Granulation Not Reportable 10/12/20 08:36 Toxic Vacuolation Not Reportable 10/12/20 08:36 Dohle Bodies Not Reportable 10/12/20 08:36 Pelger-Huet Anomaly Not Reportable 10/12/20 08:36 Justus Rods Not Reportable 10/12/20 08:36 Platelet Estimate Consistent w auto 10/12/20 08:36 Clumped Platelets Not Reportable 10/12/20 08:36 Plt Clumps, EDTA Not Reportable 10/12/20 08:36 Large Platelets Not Reportable 10/12/20 08:36 Giant Platelets Not Reportable 10/12/20 08:36 Platelet Satelliting Not Reportable 10/12/20 08:36 Plt Morphology Comment Not Reportable 10/12/20 08:36 RBC Morphology Not Reportable 10/12/20 08:36 Dimorphic RBCs Not Reportable 10/12/20 08:36 Polychromasia Not Reportable 10/12/20 08:36 Hypochromasia 1+ 10/12/20 08:36 Poikilocytosis Not Reportable 10/12/20 08:36 Anisocytosis Not Reportable 10/12/20 08:36 Microcytosis Not Reportable 10/12/20 08:36 Macrocytosis Not Reportable 10/12/20 08:36 Spherocytes Not Reportable 10/12/20 08:36 Pappenheimer Bodies Not Reportable 10/12/20 08:36 Sickle Cells Not Reportable 10/12/20 08:36 Target Cells Not Reportable 10/12/20 08:36 Tear Drop Cells Not Reportable 10/12/20 08:36 Ovalocytes Not Reportable 10/12/20 08:36 Helmet Cells Not Reportable 10/12/20 08:36 Batres-Buchanan Bodies Not Reportable 10/12/20 08:36 Kinnear Rings Not Reportable 10/12/20 08:36 Manjit Cells Not Reportable 10/12/20 08:36 Bite Cells Not Reportable 10/12/20 08:36 Crenated Cell Not Reportable 10/12/20 08:36 Elliptocytes Not Reportable 10/12/20 08:36 Acanthocytes (Spur) Not Reportable 10/12/20 08:36 Rouleaux Not Reportable 10/12/20 08:36 Hemoglobin C Crystals Not Reportable 10/12/20 08:36 Schistocytes Not Reportable 10/12/20 08:36 Malaria parasites Not Reportable 10/12/20 08:36 Tommie Bodies Not Reportable 10/12/20 08:36 Hem Pathologist Commnt No 10/12/20 08:36 PT 16.1 Sec. (12.2-14.9) H 09/12/20 04:00 INR 1.31 (0.87-1.13) H 09/12/20 04:00 APTT 32.4 Sec. (24.2-36.6) 09/09/20 10:00 D-Dimer 8315.85 ng/mlDDU (0-234) H 09/07/20 14:00 ABG pH 7.468 (7.320-7.450) H 10/02/20 10:16 POC ABG pCO2 37.1 mmHg (32.0-48.0) 10/02/20 10:16 ABG pCO2 33.4 mm Hg 09/11/20 05:40 POC ABG pO2 72.9 mmHg (83-108) L 10/02/20 10:16 ABG pO2 112.1 mm Hg (80.0-90.0) H 09/11/20 05:40 POC ABG HCO3 26.3 10/02/20 10:16 ABG HCO3 28.1 mmol/L (20.0-26.0) H 09/11/20 05:40 ABG O2 Saturation 98.4 % (95.0-99.0) 09/11/20 05:40 ABG O2 Content 11.6 (0.0-44) 09/11/20 05:40 POC ABG Base Excess 2.6 10/02/20 10:16 ABG Base Excess 5.4 mmol/L (-2.0-3.0) H 09/11/20 05:40 ABG Hemoglobin 10.1 (12.0-17.5) L 10/02/20 10:16 ABG Oxyhemoglobin 93.1 (94-98) L 10/02/20 10:16 ABG Carboxyhemoglobin 1.2 % (0.0-5.0) 09/11/20 05:40 ABG Methemoglobin 0.3 (0.0-1.5) 10/02/20 10:16 ABG Sodium 138.5 mmol/L (136.0-145.0) 10/02/20 10:16 ABG Potassium 3.9 mmol/L (3.40-4.50) 10/02/20 10:16 ABG Chloride 108.0 mmol/L (98-107) H 10/02/20 10:16 ABG Glucose 289 mg/dL (65-95) H 10/02/20 10:16 Oxyhemoglobin 96.8 % (95.0-99.0) 09/11/20 05:40 Carboxyhemoglobin 0.8 (0.5-1.5) 10/02/20 10:16 FiO2 35 10/02/20 10:16 Sodium 135 mmol/L (137-145) L 10/19/20 19:14 Potassium 4.5 mmol/L (3.6-5.0) 10/19/20 19:14 Chloride 99.9 mmol/L (98-107) 10/19/20 19:14 Carbon Dioxide 25 mmol/L (22-30) 10/19/20 19:14 Anion Gap 15 mmol/L 10/19/20 19:14 BUN 104 mg/dL (9-20) H 10/19/20 19:14 Creatinine 4.1 mg/dL (0.8-1.3) H 10/19/20 19:14 Estimated GFR 18 ml/min 10/19/20 19:14 BUN/Creatinine Ratio 25 % 10/19/20 19:14 Glucose 225 mg/dL (75-100) H 10/19/20 19:14 POC Glucose 200 mg/dL (70-105) H 10/20/20 05:26 Osmolality 353 Mosm/kg 10/13/20 09:29 Lactic Acid 2.90 mmol/L (0.7-2.0) H* 09/17/20 13:52 Uric Acid 8.6 mg/dL (3.5-7.6) H 10/13/20 09:29 Calcium 10.1 mg/dL (8.4-10.2) 10/19/20 19:14 Phosphorus 8.00 mg/dL (2.5-4.5) H 09/08/20 12:02 Magnesium 1.80 mg/dL (1.7-2.3) 09/08/20 12:02 Ferritin > 2000.0 ng/mL (30.0-300.0) H 09/07/20 14:00 Total Bilirubin 0.30 mg/dL (0.1-1.2) 10/06/20 10:12 Direct Bilirubin 0.5 mg/dL (0-0.2) H 09/08/20 05:00 Indirect Bilirubin 0.5 mg/dL 09/08/20 05:00 AST 52 units/L (5-40) H 10/06/20 10:12 ALT 28 units/L (7-56) 10/06/20 10:12 Alkaline Phosphatase 94 units/L (35-129) 10/06/20 10:12 Ammonia 50.0 umol/L (25-60) 09/07/20 14:00 Lactate Dehydrogenase 882 units/L (91-180) H 09/07/20 14:00 Total Creatine Kinase 477 units/L (55-170) H 09/07/20 14:00 Troponin T 0.076 ng/mL (0.00-0.029) H 09/07/20 14:00 C-Reactive Protein 1.10 mg/dL (0.00-1.30) 09/07/20 14:00 Total Protein 8.4 g/dL (6.3-8.2) H 10/06/20 10:12 Albumin 2.3 g/dL (3.9-5) L 10/06/20 10:12 Albumin/Globulin Ratio 0.4 % 10/06/20 10:12 Triglycerides 220 mg/dL (2-149) H 09/12/20 Unknown Procalcitonin 2.03 ng/mL (<0.15) 10/12/20 08:19 TSH 2.290 mlU/mL (0.270-4.200) 09/07/20 14:00 Arterial Blood Glucose 289 mg/dL (65-95) H 10/02/20 10:16 Arterial Blood Ionized Calcium 5.2 mg/dL (4.6-5.3) 10/02/20 10:16 Urine Color Yellow (Yellow) 10/13/20 14:45 Urine Turbidity Slightly-cloudy (Clear) 10/13/20 14:45 Urine pH 5.0 (5.0-7.0) 10/13/20 14:45 Ur Specific Louise 1.014 (1.003-1.030) 10/13/20 14:45 Urine Protein 100 mg/dl mg/dL (Negative) 10/13/20 14:45 Urine Glucose (UA) 50 mg/dL (Negative) 10/13/20 14:45 Urine Ketones Neg mg/dL (Negative) 10/13/20 14:45 Urine Blood Mod (Negative) 10/13/20 14:45 Urine Nitrite Neg (Negative) 10/13/20 14:45 Urine Bilirubin Neg (Negative) 10/13/20 14:45 Urine Urobilinogen < 2.0 mg/dL (<2.0) 10/13/20 14:45 Ur Leukocyte Esterase Neg (Negative) 10/13/20 14:45 Urine WBC (Auto) 6.0 /HPF (0.0-6.0) 10/13/20 14:45 Urine RBC (Auto) 29.0 /HPF (0.0-6.0) 10/13/20 14:45 U Epithel Cells (Auto) 1.0 /HPF (0-13.0) 10/13/20 14:45 Urine Bacteria (Auto) 2+ /HPF (Negative) 10/13/20 14:45 Urine WBC Clumps 3+ /HPF 10/12/20 10:25 Hyaline Casts 1 /LPF 10/05/20 09:15 Urine Mucus Few /HPF 10/13/20 14:45 Urine Yeast (Budding) 3+ /HPF 10/13/20 14:45 Urine Sperm Few /HPF (WATCH AND CLOCK REPAIRER) 10/13/20 14:45 Urine Creatinine < 4.2 mg/dL (0.1-20.0) 10/13/20 14:45 Urine Sodium 10 mmol/L 10/13/20 14:45 Random Vancomycin 12.4 ug/mL (0-40.0) 10/15/20 06:52 Salicylates < 0.3 mg/dL (2.8-20.0) L 09/07/20 14:00 Acetaminophen 5.0 ug/mL (10.0-30.0) L 09/07/20 14:00 Valproic Acid 58.9 ug/mL (50-100) 10/04/20 04:55 Plasma/Serum Alcohol < 0.01 % (0-0.07) 09/07/20 14:00 Coronavirus (PCR) Negative (Negative) 10/03/20 10:01 Hepatitis A IgM Ab Non-reactive (NonReactive) 09/07/20 14:00 Hep Bs Antigen Non-reactive (Negative) 09/07/20 14:00 Hep B Core IgM Ab Non-reactive (NonReactive) 09/07/20 14:00 Hepatitis C Antibody Non-reactive (NonReactive) 09/07/20 14:00 HIV 1&2 Antibody Rapid Non react (Non React) 09/07/20 14:34 HIV P24 Antigen Non react (Non React) 09/07/20 14:34 Blood Type O POSITIVE 10/12/20 11:04 Antibody Screen Negative 10/12/20 11:04 Crossmatch See Detail 10/12/20 11:04 Mae/IV: Voiding Method Incontinent IV Catheter Type [Right Triple Lumen Cath Femoral] IV Catheter Type [Left Peripheral IV Antecubital] IV Catheter Type [Left Hand] Peripheral IV IV Catheter Type [Right Peripheral IV Antecubital] Active Medications - Current Medications Current Medications: Generic Name Dose Route Start Last Admin Trade Name Freq PRN Reason Stop Dose Admin Acetaminophen 650 mg 10/02/20 09:00 10/12/20 09:31 Acetaminophen 325 Mg/10.15 Ml Oral Liqd Unit Dose PO 650 mg Q4HR PRN Administration Non Cardiac Pain or Temp>100.5 Amiodarone HCl 200 mg 10/05/20 11:00 10/19/20 21:48 Amiodarone 200 Mg Tab PO 200 mg BID TAYLOR Administration Lipase/Protease/Amylase 1 each 09/09/20 09:40 10/19/20 22:12 Lipase 10,500/Protease 25,000/Amylase 43,750 (Units) Dr Armenta FEEDTUBE 1 each PRN PRN Administration For Clogged Feeding Tube Hydralazine HCl 50 mg 09/23/20 14:00 10/20/20 06:36 Hydralazine 25 Mg Tab PO 50 mg Q8HR TAYLOR Administration Sodium Chloride 1,000 mls @ 75 mls/hr 10/18/20 13:00 Nacl 0.9% 1000 Ml IV DIRECT TAYLOR Insulin Glargine 40 units 10/19/20 10:00 10/19/20 10:11 Insulin Glargine 100 Units/Ml SUB-Q 40 units DAILY TAYLOR Administration Insulin Human Lispro 0 unit 09/12/20 12:00 10/20/20 06:38 Insulin Lispro 100 Unit/Ml SUB-Q 4 unit Q6HR TAYLOR Administration Protocol Lansoprazole 30 mg 10/13/20 10:00 10/20/20 09:02 Lansoprazole 30 Mg Solutab FEEDTUBE 30 mg DAILY TAYLOR Administration Levetiracetam 1,500 mg 09/28/20 10:00 10/20/20 09:01 Levetiracetam 500 Mg/5 Ml Oral Liqd PO 1,500 mg BID TAYLOR Administration Multivitamins 5 ml 09/09/20 12:00 10/19/20 10:14 Multivitamins 5 Ml Oral Liquid PO 5 ml QDAY TAYLOR Administration Ondansetron HCl 4 mg 09/07/20 17:55 09/19/20 04:00 Ondansetron 4 Mg/2 Ml Inj IV 4 mg Q8H PRN Administration Nausea And Vomiting Senna/Docusate Sodium 2 tab 09/20/20 11:00 Sennosides/Docusate Sodium 8.6/50 Mg Tab PO BID PRN Laxative Effect Simple Syrup 15 ml 09/09/20 09:40 10/19/20 22:12 Simple Syrup 15 Ml FEEDTUBE 15 ml PRN PRN Administration Hypoglycemia Simple Syrup 30 ml 09/09/20 09:40 10/20/20 06:41 Simple Syrup 15 Ml FEEDTUBE 30 ml PRN PRN Administration Hypoglycemia Sodium Bicarbonate 325 mg 09/09/20 09:40 10/20/20 06:41 Sodium Bicarbonate 325 Mg Tab FEEDTUBE 325 mg PRN PRN Administration For Clogged Feeding Tube Sodium Chloride 10 ml 09/07/20 22:00 10/19/20 21:49 Sodium Chloride 0.9% 10 Ml Flush Syringe IV 10 ml BID TAYLOR Administration Sodium Chloride 10 ml 09/07/20 17:55 Sodium Chloride 0.9% 10 Ml Flush Syringe IV PRN PRN LINE FLUSH Valproic Acid 1,000 mg 09/28/20 10:00 10/20/20 09:01 Valproic Acid 250 Mg/5 Ml Oral Liqd FEEDTUBE 1,000 mg BID TAYLOR Administration Nutrition/Malnutrition Assess - Dietary Evaluation Nutrition/Malnutrition Findings: Nutrition Notes Start: 09/08/20 12:01 Freq: Status: Active Protocol: Document 10/19/20 08:51 AT (Rec: 10/19/20 08:59 AT [id number]) Co-Sign 10/19/20 08:51 CW Nutrition Notes Initial or Follow up Reassessment Current Diagnosis Acute Kidney Injury, Respiratory Failure Other Pertinent Diagnosis s/p cardiac arrest, COVID(-), Anoxic Encephalopathy, Pneu, Tubular Necrosis Current Diet Nepro 1.8 at 45 mL/hr (goal rate) Labs/Tests POC BG 244 3/10 BUN 104 Cr 4.6 Pertinent Medications Humalog Pancreaze NS at 75 mL/hr Height 6 ft Weight 98.6 kg [place] Body Weight (kg) 80.90 BMI 29.5 Weight change and time frame Weight change noted, possibly due to error. Yesterday, weight recorded at 157.1 kg Weight Status Morbidly Obese Subjective/Other Information Follow up for TF stability. Observed pt at bedside, TF running at goal rate and tolerating well per RN. Will reduce flushes for generalized edema. Percent of energy/protein needs met: 100%/59% Burn Absent Trauma Absent GI Symptoms None Difficulty In Swallowing Food Allergy No Current % PO Negligible Minimum of two criteria No Fluid Accumulation Mild (non-severe) #3 Nutrition Diagnosis Increased nutrient needs ( specify in comment below) As Evidenced by Signs and Symptoms pressure ulcer healed Diagnosis Progress(for reassessment Resolved documentation) #1 Nutrition Diagnosis Inadequate oral intake Diagnosis Progress(for reassessment Continues documentation) Is patient on ventilator? No Is Patient Ambulatory and/or Out of Bed No REE-([facility]-confined to bed) 2181.756 Kcal/Kg value to use for calculation 19 Approximate Energy Requirements Using 1873 kcal/Kg Calculation Used for Recommendations Kcal/kg Additional Notes PRO needs: 119-143g (1-1.2 g/ kg AdBW 119 kg) Fluid needs: 1 mL/kcal or per MD Nutrition Intervention Change Diet Order: Continue TF Nutrition Support: Nepro 1.8 at 45 mL/hr. Flush with 120 mL q4h. Kcal 1,944 Protein (gm) 87 Fluid (mL) 785 Goal #1 Meet kcal and protein needs as best as possible via TF Anticipated Discharge Needs: Nepro 1.8 at 45 mL/hr Follow-Up By: 10/23/20 Additional Comments F/U for stable TF, edema
[2020-10-20] MEDS: AMIODARONE 200 MG TAB PO SCH ×2 (09:34→22:55)
[2020-10-20] MEDS: MULTIVITAMINS 5 ML ORAL LIQUID PO SCH (09:35)
[2020-10-20] MEDS: INSULIN GLARGINE 100 UNITS/ML SUB-Q SCH (11:36)
[2020-10-20 13:00] LABS: Calcium 9.8 mg/dL (8.4-10.2)
[2020-10-20 16:32] LABS: Calcium 9.5 mg/dL (8.4-10.2)
--- NOTE | 2020-10-20 19:55 | Progress Note ---
Assessment and Plan Assessment and plan #Acute kidney injury on chronic kidney disease, baseline creatinine around 1.8, briefly on iHD, currently nonoliguric likely felt to be due to acute tubular necrosis (multifactorial). No emergent indication for renal replacement therapy. Continue IVF until free water flushes are resumed. Elevated BUN likely due to tube feeds. He is a poor candidate for renal replacement therapy. Check BMP daily. Maintain intake and output logs, avoid any nephrotoxic medication Anemia with renal failure, s/p erythropoietin Keep MAP > 65 Renally dose medications - antibiotics and antiepileptics #Out of hospital cardiac arrest #Anoxic encephalopathy, s/p trach and PEG. Neurology evaluation noted. #Bilateral pneumonia due to Covid infection - S/p completion of antibiotic course - ID following, s/p trach #Recommend goals of care discussion #Prognosis guarded Subjective Date of service: 10/20/20 Principal diagnosis: Abnormal LFTs, s/p cardiac arrest, acute kidney injury with ATN Interval history: Mental status remains unchanged UOP - 1.1 L Patient was seen for his renal issues Nursing, interdisciplinary and consult notes were reviewed Vitals, input and output, medications and labs were reviewed Objective - Exam Narrative Exam: General: No acute distress HEENT: Oral mucosa moist Neck: Supple, no JVD Chest: Trached. Heart: RRR, S1 and S2, no pericardial rub Abdomen: Soft, nontender, no renal bruit Extremity: No peripheral cyanosis, edema Neurological: Unresponsive Dermatology: No skin rash Psych: No agitation Musculoskeletal: No joint effusion - Vital Signs Vital signs: Vital Signs - 12hr 10/20/20 10/20/20 10/20/20 08:37 10:30 11:00 Temperature 99.7 F H Pulse Rate 88 Pulse Rate [ 59 L Left Radial] Pulse Rate [ 80 Right Radial] Respiratory 19 20 Rate Blood Pressure 134/68 O2 Sat by Pulse 96 97 Oximetry O2 Sat by Pulse 98 Oximetry [ Assessment] 10/20/20 10/20/20 10/20/20 11:56 14:38 15:20 Temperature 99.9 F H Pulse Rate 91 H 93 H Pulse Rate [ Left Radial] Pulse Rate [ Right Radial] Respiratory 40 H Rate Blood Pressure 129/58 129/58 O2 Sat by Pulse Oximetry O2 Sat by Pulse Oximetry [ Assessment] - Lab 10/16/20 07:13 10/20/20 15:57 Most recent lab results ABG pH 7.468 (7.320-7.450) H 10/02/20 10:16 ABG pCO2 33.4 mm Hg 09/11/20 05:40 ABG pO2 112.1 mm Hg (80.0-90.0) H 09/11/20 05:40 ABG HCO3 28.1 mmol/L (20.0-26.0) H 09/11/20 05:40 ABG O2 Saturation 98.4 % (95.0-99.0) 09/11/20 05:40 Calcium 9.5 mg/dL (8.4-10.2) 10/20/20 15:57 Phosphorus 8.00 mg/dL (2.5-4.5) H 09/08/20 12:02 Magnesium 1.80 mg/dL (1.7-2.3) 09/08/20 12:02 Urine Creatinine < 4.2 mg/dL (0.1-20.0) 10/13/20 14:45 Urine Sodium 10 mmol/L 10/13/20 14:45 Medications & Allergies - Medications Allergies/Adverse Reactions: Allergies No Known Allergies Allergy (Verified 09/21/20 21:00) Verified with , no known drug allergies. Home Medications: Home Medications Medication Instructions Recorded Confirmed Last Taken Type Albuterol Sulfate 60 mcg IH PRN 09/11/20 09/11/20 Unknown History Cholecalciferol (Vitamin D3) 25 tab PO DAILY 09/11/20 09/11/20 Unknown History Cozaar 25 tab PO DAILY 09/11/20 09/11/20 Unknown History HumaLOG 14 unit SQ AC 09/11/20 09/11/20 Unknown History Hydralazine HCl 50 tab PO TID 09/11/20 09/11/20 Unknown History Isosorbide Dinitrate 30 mg PO DAILY 09/11/20 09/11/20 Unknown History Lantus VIAL 54 units SQ HS 09/11/20 09/11/20 Unknown History Lasix 20 tab PO DAILY 09/11/20 09/11/20 Unknown History Nifedipine 30 tab PO DAILY 09/11/20 09/11/20 Unknown History Active Medications: Generic Name Dose Route Start Last Admin Trade Name Freq PRN Reason Stop Dose Admin Acetaminophen 650 mg 10/02/20 09:00 10/12/20 09:31 Acetaminophen 325 Mg/10.15 Ml Oral Liqd Unit Dose PO 650 mg Q4HR PRN Administration Non Cardiac Pain or Temp>100.5 Amiodarone HCl 200 mg 10/05/20 11:00 10/20/20 09:34 Amiodarone 200 Mg Tab PO 200 mg BID TAYLOR Administration Lipase/Protease/Amylase 1 each 09/09/20 09:40 10/19/20 22:12 Lipase 10,500/Protease 25,000/Amylase 43,750 (Units) Dr Armenta FEEDTUBE 1 each PRN PRN Administration For Clogged Feeding Tube Hydralazine HCl 50 mg 09/23/20 14:00 10/20/20 14:38 Hydralazine 25 Mg Tab PO 50 mg Q8HR TAYLOR Administration Sodium Chloride 1,000 mls @ 75 mls/hr 10/18/20 13:00 Nacl 0.9% 1000 Ml IV DIRECT TAYLOR Insulin Glargine 40 units 10/19/20 10:00 10/20/20 11:36 Insulin Glargine 100 Units/Ml SUB-Q 40 units DAILY TAYLOR Administration Insulin Human Lispro 0 unit 09/12/20 12:00 10/20/20 17:32 Insulin Lispro 100 Unit/Ml SUB-Q 3 unit Q6HR TAYLOR Administration Protocol Lansoprazole 30 mg 10/13/20 10:00 10/20/20 09:02 Lansoprazole 30 Mg Solutab FEEDTUBE 30 mg DAILY TAYLOR Administration Levetiracetam 1,500 mg 09/28/20 10:00 10/20/20 09:01 Levetiracetam 500 Mg/5 Ml Oral Liqd PO 1,500 mg BID TAYLOR Administration Multivitamins 5 ml 09/09/20 12:00 10/20/20 09:35 Multivitamins 5 Ml Oral Liquid PO Not Given QDAY [facility] Ondansetron HCl 4 mg 09/07/20 17:55 09/19/20 04:00 Ondansetron 4 Mg/2 Ml Inj IV 4 mg Q8H PRN Administration Nausea And Vomiting Senna/Docusate Sodium 2 tab 09/20/20 11:00 Sennosides/Docusate Sodium 8.6/50 Mg Tab PO BID PRN Laxative Effect Simple Syrup 15 ml 09/09/20 09:40 10/19/20 22:12 Simple Syrup 15 Ml FEEDTUBE 15 ml PRN PRN Administration Hypoglycemia Simple Syrup 30 ml 09/09/20 09:40 10/20/20 06:41 Simple Syrup 15 Ml FEEDTUBE 30 ml PRN PRN Administration Hypoglycemia Sodium Bicarbonate 325 mg 09/09/20 09:40 10/20/20 16:10 Sodium Bicarbonate 325 Mg Tab FEEDTUBE 325 mg PRN PRN Administration For Clogged Feeding Tube Sodium Chloride 10 ml 09/07/20 22:00 10/20/20 09:35 Sodium Chloride 0.9% 10 Ml Flush Syringe IV 10 ml BID TAYLOR Administration Sodium Chloride 10 ml 09/07/20 17:55 Sodium Chloride 0.9% 10 Ml Flush Syringe IV PRN PRN LINE FLUSH Valproic Acid 1,000 mg 09/28/20 10:00 10/20/20 09:01 Valproic Acid 250 Mg/5 Ml Oral Liqd FEEDTUBE 1,000 mg BID TAYLOR Administration
[2020-10-20] MEDS: ACETAMINOPHEN 325 MG/10.15 ML ORAL LIQD UNIT DOSE PO PRN (23:32)
[2020-10-21] MEDS: INSULIN LISPRO 100 UNIT/ML SUB-Q SCH ×5 (00:45→23:35)
[2020-10-21] MEDS: hydrALAZINE 25 MG TAB PO SCH ×3 (06:31→21:44)
[2020-10-21] MEDS: SODIUM BICARBONATE 325 MG TAB FEEDTUBE PRN (08:06)
[2020-10-21] MEDS: LIPASE 10,500/PROTEASE 25,000/AMYLASE 43,750 (UNITS) DR CAP FEEDTUBE PRN (08:06)
--- NOTE | 2020-10-21 08:41 | Progress Note ---
Assessment and Plan Assessment and plan: S/p cardiopulmonary arrest Toxic metabolic encephalopathy +/-anoxic injury Acute hypoxic respiratory failure Acute kidney injury Seizure disorder Hyperkalemia COVID-19 pneumonia Sepsis Transaminitis Morbid obesity. 09/15/2020. MRI brain for further evaluation. Continue AEDs of valproic acid and Keppra. Continue hemodialysis per nephrology recommendations. Overall prognosis remains guarded and poor. 09/16/2020. ID recommends continue to monitor patient off of antibiotics. Fever most likely of central etiology. Patient with questionable seizures versus myoclonus from anoxic brain injury. Patient unable to undergo MRI due to body habitus. Continue AEDs per neurology recommendations. Inflammatory markers elevated. Patient was recently hospitalized for COVID-19 pneumonia at the [facility] prior to being hospitalized [place]. Patient not a candidate for remdesivir due to hepatic and renal failure. Viral hepatitis panel negative. Overall prognosis extremely poor. 09/17/2020. Fevers have resolved over the past 48 hours. Continue to monitor off antibiotics per ID recommendations. Patient with questionable seizures versus myoclonus from anoxic brain injury. Patient unable to undergo MRI due to body habitus. EEG is nonspecific but given CT of head findings consistent with anoxic encephalopathy, brain injury. Continue AEDs per neurology recommendations. Inflammatory markers elevated. Patient was recently hospitalized for COVID-19 pneumonia at the [facility] to being hospitalized [facility]. Patient not a candidate for remdesivir due to hepatic and renal failure. Viral hepatitis panel negative. Patient is s/p emergent HD on Friday (hyperK) and Friday - 09/08. Patient also S/p HD 09/15. Continue hemodialysis per nephrology recommendations. Patient currently on AC/PRVC mode ventilation with rate of 30, tidal volume 475, FiO2 30% and PEEP of 6. As stated in neuro note, overall prognosis is very poor. 09/18/2020. Fevers have resolved over the past 72 hours. Continue to monitor off antibiotics per ID recommendations. Leukocytosis persistent for the past 4 days. Patient with questionable seizures/myoclonus from anoxic brain injury. Patient unable to undergo MRI due to body habitus. EEG is nonspecific but given CT of head findings consistent with anoxic encephalopathy, brain injury. Continue AEDs per neurology recommendations. Inflammatory markers elevated. Patient was recently hospitalized for COVID-19 pneumonia at the [facility] to being hospitalized [facility]. Patient not a candidate for remdesivir due to hepatic and renal failure. Viral hepatitis panel negative. Patient currently on AC/PRVC mode ventilation with rate of 30, tidal volume 475, FiO2 30% and PEEP of 6. Overall prognosis remains guarded/poor. 07/19/2021 Fevers have resolved over the past 4 days. Continue to monitor off antibiotics per ID recommendations. Leukocytosis persistent for the past 4 days. Patient with questionable seizures/myoclonus from anoxic brain injury. Patient unable to undergo MRI due to body habitus. EEG is nonspecific but given CT of head findings consistent with anoxic encephalopathy, brain injury. Continue AEDs per neurology recommendations. Inflammatory markers elevated. Patient was recently hospitalized for COVID-19 pneumonia at the [facility] to being [facility]. Patient not a candidate for remdesivir due to hepatic and renal failure. Viral hepatitis panel negative. Patient currently on AC/PRVC mode ventilation with rate of 30, tidal volume 475, FiO2 30% and PEEP of 6. Overall prognosis remains guarded/poor. 09/20/2020 -Surgery consulted for PEG and trach, will continue to follow. 09/21/2020; patient will have PEG and trach by Dr. hayes today. Prognosis is poor. Continue with current management. Photographers' Model is following for vent management. 09/22/2020; patient had PEG and trach yesterday. 09/23/2020; continue PEG Tube Feeding. 07/24/2021; continue PEG tube feeding, patient is on Keppra, lorazepam and phenytoin per neurology recommendation. Patient is on hemodialysis and nephrology is following. Management of mechanical ventilation for CCM. 09/25/2020. Continue PEG tube feeding, patient is on Keppra, lorazepam and phenytoin per neurology recommendation. Patient is on hemodialysis and nephrology is following. Management of mechanical ventilation for CCM. Continue PSV/CPAP 07/16. Continue tracheostomy care, secretion control and airway management. 09/26/2020. Patient has tolerated PSV for approximately 48 hours. I discussed with pulmonary possibility of T-piece today. Continue tracheostomy care, se cretion control and airway management. If patient tolerates T-piece trials, patient will be transferred to the floor. Continue AEDs of Keppra and phenytoin as well as Ativan as needed per neurology recommendations. Continue hemodialysis per nephrology. Continue TF with aspiration precautions. 09/27/2020. Patient continues to tolerate PSV 12/6 at 30% FiO2. T-piece trials per pulmonary. Continue tracheostomy care, secretion control and airway management. Continue AEDs of Keppra and phenytoin as well as Ativan as needed per neurology recommendations. Continue hemodialysis per nephrology. Continue TF with aspiration precautions. 09/28/2020. Patient for T-piece trials per pulmonary. Continue hemodialysis per nephrology. Continue tracheostomy care, secretion control and airway manageme nt. Continue AEDs of Keppra and phenytoin as well as Ativan as needed per neurology recommendations. Continue TF with aspiration precautions. 09/29/2020, continue T-piece trials per pulmonary. Continue hemodialysis per nephrology. Continue strict I/O's and labs daily. Monitor for renal recovery. 09/30/2020. Continue T-piece trials per pulmonary recommendations. Continue tracheostomy care, secretion control and airway management. Continue hemodialysis per nephrology. Tight glycemic control. Continue TF with aspiration precautions. 10/01/2020. Patient with T-piece trials and tolerating. Wean to trach collar per pulmonary. Continue tracheostomy care, secretion control and airway paola gement. Continue hemodialysis per nephrology. Tight glycemic control. Continue TF with aspiration precautions. Case management consultation for placement 10/02/20. Continue T-piece trials per pulmonary recommendations. Continue tracheostomy care, secretion control and airway management. Continue hemodialysis per nephrology. Tight glycemic control. Continue TF with aspiration precautions. 10/03/2020. Continue T-piece trials per pulmonology. Continue tracheostomy care, secretion control and airway management. Continue modalities per nephrology. Discharge planning underway. Needs placement to SNF versus hospice. 10/04/2020. Patient remained febrile with temperature 101 F. Ordered blood culture, chest x-ray, urinalysis. Plan to start antibiotics after blood cultures been obtained. Patient remains hemodynamically stable. Plan to discharge to SNF versus inpatient hospice on the way. 10/05/2020. Started on antibiotics yesterday. Awaiting blood culture. He developed atrial fibrillation with RVR and was placed on amiodaron see awaiting placement. E drip with subsequent conversion to SR. Now on amiodarone PO. 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 As per CM, [facility] not approving LTC placement at this time. As is still undecided about hospice, inpatient hospice is not accepting h im at this time. has placed a referral to a SNF with inpatient dialysis. Awaiting response from the SNF. 10/06/2020. Hb drop noted. Not on therapeutic anticoagulation [atrial fibrillation] due to duration of atrial fibrillation [lasted less than 2 hours] and also drop in hemoglobin. Continue to monitor hemoglobin. Repeat labs ordered today. Vitals stable. Discussed with patient's yesterday 10/07. HR is controlled. Pending placement. As per CM notes, patient denied acceptance at a [facility] as he has [facility] insurance. Will discuss with CM to know other options are available. 10/08. Vitals stable. Will discuss discharge plan with spouse today as it looks like only option left is inpatient hospice. 10/09. Vitals stable. Will discuss discharge plan with spouse today as it looks like only option left is inpatient hospice 10/10. Discussed with patient spouse. Patient spouse asking to see patient in the hospital. manager body on board. Patient has not had hemodialysis since 10/05. Creatinine stable at 4.6. Nephrology on board 10/11. DC planning underway. Patient spouse to see patient in hospital today. Vitals remained stable. Creatinine stable as well. Increase Lantus to 36 units daily. 10/12. Patient started having fever yesterday-temp 102 Fahrenheit. Stat blood cultures were drawn today, urinalysis, urine culture, chest x-ray, procalcitonin ordered. Start on empirical antibiotics for possible hospital acquired pneumonia. ID consulted. H&H shows hemoglobin 4.6 patient will receive 2 units PRBCs.. Check H&H after admission. Check stool guaiac. 10/13. Patient with new sepsis. Follow-up blood, sputum and urine cultures. Continue empiric antibiotics of cefepime and vancomycin. Chest x-ray appears to be unchanged. Urinalysis revealed pyuria. H&H is stabilized from PRBCs. Continue to follow H&H 10/14. Urine culture reveals yeast. Blood cultures thus far negative. Continue empiric antibiotics of cefepime and vancomycin per ID recommendations. Nephro courtney had long discussion regarding initiation of hemodialysis. Coke Handling Supervisor conveyed to the spouse Yoko yesterday that prognosis is overall not good and his mortality risk is very high. Nephrology to potentially initiate hemodialysis today. I had a follow-up discussion with the spouse Yoko and reiterated poor prognosis. All questions answered. 10/15. Continue empiric antibiotics of cefepime and vancomycin per ID recommendations. Prognosis remains poor. Initiation of hemodialysis per nephrology recommendations. 10/16. PEG tube currently not flushing per nursing. GI consultation for PEG tube dysfunction. Repeat blood cultures have been negative x72 hours. Continue IV antibiotics per ID recommendations. Patient with Acute kidney injury currently nonoliguric likely felt to be due to acute tubular necrosis which has been felt to be multifactorial. Nephrology reports no urgent or emergent indication for renal replacement therapy and that the wants to proceed with renal replacement therapy. Nephrology informed her that patient is high risk for any adverse outcome including mortality risk during dialysis. Overall poor prognosis. 10/17/2020; patient is on PEG tube feeding and functional. Repeat blood cultures were negative. Patient does not have any fever overnight. Patient finished 5 days of IV cefepime and vancomycin yesterday. 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 And he is a poor candidate for dialysis. Will follow with nephrology for further recommendation. Overall prognosis is very poor. I order CT head to assess if brain edema is resolved, and to assess for anoxic brain injury. I put a consult for neurology to assess his prognosis and discussed with the family from neurology point of view. 10/18/2020; patient was evaluated by neurology and recommend MRI and EEG, MRI was not done because patient does not fit to the MRI table. CT head is ordered yesterday. Evaluated by ID and recommend to monitor off antibiotics. Nephrology is following. 10/19/2020 patient was evaluated by neurology and recommend MRI and EEG, MRI was not done because patient does not fit to the MRI table. CT head is ordered yesterday. Evaluated by ID and recommend to monitor off antibiotics. Nephrology is following. 10/20/2020; CT head was done and showed significant decrease in brain swelling. Nephrology is following. Pending SNF placement. 10/21/2020; no change in his brain function. Nephrology is following and said he is a poor candidate for dialysis. Ending SNF placement. Prognosis poor History Interval history: Patient was seen and evaluated this morning Patient is noncommunicative Patient has PEG and Trach Hospitalist Physical - Physical exam Narrative exam: On mechanical ventilation. Patient has PEG and a trach The patient appeared well nourished and normally developed. Vital signs as documented. Head exam is unremarkable. No scleral icterus . Neck is without jugular venous distension, thyromegaly, or carotid bruits. Lungs are clear to auscultation. Cardiac exam reveals regular rate and Rhythm. Abdominal exam reveals normal bowel sounds, nontender, no organomegaly. Extremities are nonedematous and both femoral and pedal pulses are normal. PLASTICS SCIENTIST: Patient is noncommunicative - Constitutional Vitals: Temp Pulse Resp BP Pulse Ox 98.9 F 77 18 149/74 95 10/21/20 08:11 10/21/20 08:11 10/21/20 08:11 10/21/20 08:11 10/21/20 08:11 General appearance: Present: other (On mechanical ventilation) HEART Score - HEART Score Troponin: Troponin T 0.076 ng/mL (0.00-0.029) H 09/07/20 14:00 Results - Labs CBC & Chem 7: 10/16/20 07:13 10/20/20 15:57 Labs: Laboratory Last Values WBC 7.8 K/mm3 (4.5-11.0) 10/16/20 07:13 RBC 2.87 M/mm3 (3.65-5.03) L 10/16/20 07:13 Hgb 8.4 gm/dl (11.8-15.2) L 10/16/20 07:13 Hct 25.3 % (35.5-45.6) L 10/16/20 07:13 MCV 88 fl (84-94) 10/16/20 07:13 MCH 29 pg (28-32) 10/16/20 07:13 MCHC 33 % (32-34) 10/16/20 07:13 RDW 18.7 % (13.2-15.2) H 10/16/20 07:13 Plt Count 222 K/mm3 (140-440) 10/16/20 07:13 Lymph % (Auto) 21.2 % (13.4-35.0) 10/16/20 07:13 Garrard % (Auto) 14.4 % (0.0-7.3) H 10/16/20 07:13 Eos % (Auto) 1.9 % (0.0-4.3) 10/16/20 07:13 Baso % (Auto) 0.3 % (0.0-1.8) 10/16/20 07:13 Lymph # (Auto) 1.6 K/mm3 (1.2-5.4) 10/16/20 07:13 Garrard # (Auto) 1.1 K/mm3 (0.0-0.8) H 10/16/20 07:13 Eos # (Auto) 0.2 K/mm3 (0.0-0.4) 10/16/20 07:13 Baso # (Auto) 0.0 K/mm3 (0.0-0.1) 10/16/20 07:13 Add Manual Diff Complete 10/12/20 08:36 Total Counted 100 10/12/20 08:36 Seg Neutrophils % 62.2 % (40.0-70.0) 10/16/20 07:13 Seg Neuts % (Manual) 75.0 % (40.0-70.0) H 10/12/20 08:36 Band Neutrophils % 8.0 % 09/30/20 06:57 Lymphocytes % (Manual) 17.0 % (13.4-35.0) 10/12/20 08:36 Monocytes % (Manual) 5.0 % (0.0-7.3) 10/12/20 08:36 Eosinophils % (Manual) 2.0 % (0.0-4.3) 10/12/20 08:36 Basophils % (Manual) 1.0 % (0.0-1.8) 10/12/20 08:36 Metamyelocytes % 2.0 % 09/08/20 Unknown Promyelocytes % 0 % 10/04/20 10:32 Nucleated RBC % Not Reportable 10/12/20 08:36 Seg Neutrophils # 4.8 K/mm3 (1.8-7.7) 10/16/20 07:13 Seg Neutrophils # Man 10.6 K/mm3 (1.8-7.7) H 10/12/20 08:36 Band Neutrophils # 0.0 K/mm3 10/12/20 08:36 Lymphocytes # (Manual) 2.4 K/mm3 (1.2-5.4) 10/12/20 08:36 Abs React Lymphs (Man) 0.0 K/mm3 10/12/20 08:36 Monocytes # (Manual) 0.7 K/mm3 (0.0-0.8) 10/12/20 08:36 Eosinophils # (Manual) 0.3 K/mm3 (0.0-0.4) 10/12/20 08:36 Basophils # (Manual) 0.1 K/mm3 (0.0-0.1) 10/12/20 08:36 Metamyelocytes # 0.0 K/mm3 10/12/20 08:36 Myelocytes # 0.0 K/mm3 10/12/20 08:36 Promyelocytes # 0.0 K/mm3 10/12/20 08:36 Blast Cells # 0.0 K/mm3 10/12/20 08:36 WBC Morphology Not Reportable 10/12/20 08:36 Hypersegmented Neuts Not Reportable 10/12/20 08:36 Hyposegmented Neuts Not Reportable 10/12/20 08:36 Hypogranular Neuts Not Reportable 10/12/20 08:36 Smudge Cells Not Reportable 10/12/20 08:36 Toxic Granulation Not Reportable 10/12/20 08:36 Toxic Vacuolation Not Reportable 10/12/20 08:36 Dohle Bodies Not Reportable 10/12/20 08:36 Pelger-Huet Anomaly Not Reportable 10/12/20 08:36 Justus Rods Not Reportable 10/12/20 08:36 Platelet Estimate Consistent w auto 10/12/20 08:36 Clumped Platelets Not Reportable 10/12/20 08:36 Plt Clumps, EDTA Not Reportable 10/12/20 08:36 Large Platelets Not Reportable 10/12/20 08:36 Giant Platelets Not Reportable 10/12/20 08:36 Platelet Satelliting Not Reportable 10/12/20 08:36 Plt Morphology Comment Not Reportable 10/12/20 08:36 RBC Morphology Not Reportable 10/12/20 08:36 Dimorphic RBCs Not Reportable 10/12/20 08:36 Polychromasia Not Reportable 10/12/20 08:36 Hypochromasia 1+ 10/12/20 08:36 Poikilocytosis Not Reportable 10/12/20 08:36 Anisocytosis Not Reportable 10/12/20 08:36 Microcytosis Not Reportable 10/12/20 08:36 Macrocytosis Not Reportable 10/12/20 08:36 Spherocytes Not Reportable 10/12/20 08:36 Pappenheimer Bodies Not Reportable 10/12/20 08:36 Sickle Cells Not Reportable 10/12/20 08:36 Target Cells Not Reportable 10/12/20 08:36 Tear Drop Cells Not Reportable 10/12/20 08:36 Ovalocytes Not Reportable 10/12/20 08:36 Helmet Cells Not Reportable 10/12/20 08:36 Batres-Martelle Bodies Not Reportable 10/12/20 08:36 [place] Rings Not Reportable 10/12/20 08:36 Manjit Cells Not Reportable 10/12/20 08:36 Bite Cells Not Reportable 10/12/20 08:36 Crenated Cell Not Reportable 10/12/20 08:36 Elliptocytes Not Reportable 10/12/20 08:36 Acanthocytes (Spur) Not Reportable 10/12/20 08:36 Rouleaux Not Reportable 10/12/20 08:36 Hemoglobin C Crystals Not Reportable 10/12/20 08:36 Schistocytes Not Reportable 10/12/20 08:36 Malaria parasites Not Reportable 10/12/20 08:36 Tommie Bodies Not Reportable 10/12/20 08:36 Hem Pathologist Commnt No 10/12/20 08:36 PT 16.1 Sec. (12.2-14.9) H 09/12/20 04:00 INR 1.31 (0.87-1.13) H 09/12/20 04:00 APTT 32.4 Sec. (24.2-36.6) 09/09/20 10:00 D-Dimer 8315.85 ng/mlDDU (0-234) H 09/07/20 14:00 ABG pH 7.468 (7.320-7.450) H 10/02/20 10:16 POC ABG pCO2 37.1 mmHg (32.0-48.0) 10/02/20 10:16 ABG pCO2 33.4 mm Hg 09/11/20 05:40 POC ABG pO2 72.9 mmHg (83-108) L 10/02/20 10:16 ABG pO2 112.1 mm Hg (80.0-90.0) H 09/11/20 05:40 POC ABG HCO3 26.3 10/02/20 10:16 ABG HCO3 28.1 mmol/L (20.0-26.0) H 09/11/20 05:40 ABG O2 Saturation 98.4 % (95.0-99.0) 09/11/20 05:40 ABG O2 Content 11.6 (0.0-44) 09/11/20 05:40 POC ABG Base Excess 2.6 10/02/20 10:16 ABG Base Excess 5.4 mmol/L (-2.0-3.0) H 09/11/20 05:40 ABG Hemoglobin 10.1 (12.0-17.5) L 10/02/20 10:16 ABG Oxyhemoglobin 93.1 (94-98) L 10/02/20 10:16 ABG Carboxyhemoglobin 1.2 % (0.0-5.0) 09/11/20 05:40 ABG Methemoglobin 0.3 (0.0-1.5) 10/02/20 10:16 ABG Sodium 138.5 mmol/L (136.0-145.0) 10/02/20 10:16 ABG Potassium 3.9 mmol/L (3.40-4.50) 10/02/20 10:16 ABG Chloride 108.0 mmol/L (98-107) H 10/02/20 10:16 ABG Glucose 289 mg/dL (65-95) H 10/02/20 10:16 Oxyhemoglobin 96.8 % (95.0-99.0) 09/11/20 05:40 Carboxyhemoglobin 0.8 (0.5-1.5) 10/02/20 10:16 FiO2 35 10/02/20 10:16 Sodium 136 mmol/L (137-145) L 10/20/20 15:57 Potassium 4.6 mmol/L (3.6-5.0) 10/20/20 15:57 Chloride 100.2 mmol/L (98-107) 10/20/20 15:57 Carbon Dioxide 28 mmol/L (22-30) 10/20/20 15:57 Anion Gap 12 mmol/L 10/20/20 15:57 BUN 107 mg/dL (9-20) H 10/20/20 15:57 Creatinine 4.5 mg/dL (0.8-1.3) H 10/20/20 15:57 Estimated GFR 16 ml/min 10/20/20 15:57 BUN/Creatinine Ratio 24 % 10/20/20 15:57 Glucose 226 mg/dL (75-100) H 10/20/20 15:57 POC Glucose 183 mg/dL (70-105) H 10/21/20 00:44 Osmolality 353 Mosm/kg 10/13/20 09:29 Lactic Acid 2.90 mmol/L (0.7-2.0) H* 09/17/20 13:52 Uric Acid 8.6 mg/dL (3.5-7.6) H 10/13/20 09:29 Calcium 9.5 mg/dL (8.4-10.2) 10/20/20 15:57 Phosphorus 8.00 mg/dL (2.5-4.5) H 09/08/20 12:02 Magnesium 1.80 mg/dL (1.7-2.3) 09/08/20 12:02 Ferritin > 2000.0 ng/mL (30.0-300.0) H 09/07/20 14:00 Total Bilirubin 0.30 mg/dL (0.1-1.2) 10/06/20 10:12 Direct Bilirubin 0.5 mg/dL (0-0.2) H 09/08/20 05:00 Indirect Bilirubin 0.5 mg/dL 09/08/20 05:00 AST 52 units/L (5-40) H 10/06/20 10:12 ALT 28 units/L (7-56) 10/06/20 10:12 Alkaline Phosphatase 94 units/L (35-129) 10/06/20 10:12 Ammonia 50.0 umol/L (25-60) 09/07/20 14:00 Lactate Dehydrogenase 882 units/L (91-180) H 09/07/20 14:00 Total Creatine Kinase 477 units/L (55-170) H 09/07/20 14:00 Troponin T 0.076 ng/mL (0.00-0.029) H 09/07/20 14:00 C-Reactive Protein 1.10 mg/dL (0.00-1.30) 09/07/20 14:00 Total Protein 8.4 g/dL (6.3-8.2) H 10/06/20 10:12 Albumin 2.3 g/dL (3.9-5) L 10/06/20 10:12 Albumin/Globulin Ratio 0.4 % 10/06/20 10:12 Triglycerides 220 mg/dL (2-149) H 09/12/20 Unknown Procalcitonin 2.03 ng/mL (<0.15) 10/12/20 08:19 TSH 2.290 mlU/mL (0.270-4.200) 09/07/20 14:00 Arterial Blood Glucose 289 mg/dL (65-95) H 10/02/20 10:16 Arterial Blood Ionized Calcium 5.2 mg/dL (4.6-5.3) 10/02/20 10:16 Urine Color Yellow (Yellow) 10/13/20 14:45 Urine Turbidity Slightly-cloudy (Clear) 10/13/20 14:45 Urine pH 5.0 (5.0-7.0) 10/13/20 14:45 Ur Specific Gause 1.014 (1.003-1.030) 10/13/20 14:45 Urine Protein 100 mg/dl mg/dL (Negative) 10/13/20 14:45 Urine Glucose (UA) 50 mg/dL (Negative) 10/13/20 14:45 Urine Ketones Neg mg/dL (Negative) 10/13/20 14:45 Urine Blood Mod (Negative) 10/13/20 14:45 Urine Nitrite Neg (Negative) 10/13/20 14:45 Urine Bilirubin Neg (Negative) 10/13/20 14:45 Urine Urobilinogen < 2.0 mg/dL (<2.0) 10/13/20 14:45 Ur Leukocyte Esterase Neg (Negative) 10/13/20 14:45 Urine WBC (Auto) 6.0 /HPF (0.0-6.0) 10/13/20 14:45 Urine RBC (Auto) 29.0 /HPF (0.0-6.0) 10/13/20 14:45 U Epithel Cells (Auto) 1.0 /HPF (0-13.0) 10/13/20 14:45 Urine Bacteria (Auto) 2+ /HPF (Negative) 10/13/20 14:45 Urine WBC Clumps 3+ /HPF 10/12/20 10:25 Hyaline Casts 1 /LPF 10/05/20 09:15 Urine Mucus Few /HPF 10/13/20 14:45 Urine Yeast (Budding) 3+ /HPF 10/13/20 14:45 Urine Sperm Few /HPF ([employer]) 10/13/20 14:45 Urine Creatinine < 4.2 mg/dL (0.1-20.0) 10/13/20 14:45 Urine Sodium 10 mmol/L 10/13/20 14:45 Random Vancomycin 12.4 ug/mL (0-40.0) 10/15/20 06:52 Salicylates < 0.3 mg/dL (2.8-20.0) L 09/07/20 14:00 Acetaminophen 5.0 ug/mL (10.0-30.0) L 09/07/20 14:00 Valproic Acid 58.9 ug/mL (50-100) 10/04/20 04:55 Plasma/Serum Alcohol < 0.01 % (0-0.07) 09/07/20 14:00 Coronavirus (PCR) Negative (Negative) 10/19/20 09:20 Hepatitis A IgM Ab Non-reactive (NonReactive) 09/07/20 14:00 Hep Bs Antigen Non-reactive (Negative) 09/07/20 14:00 Hep B Core IgM Ab Non-reactive (NonReactive) 09/07/20 14:00 Hepatitis C Antibody Non-reactive (NonReactive) 09/07/20 14:00 HIV 1&2 Antibody Rapid Non react (Non React) 09/07/20 14:34 HIV P24 Antigen Non react (Non React) 09/07/20 14:34 Blood Type O POSITIVE 10/12/20 11:04 Antibody Screen Negative 10/12/20 11:04 Crossmatch See Detail 10/12/20 11:04 Mae/IV: Voiding Method Condom Catheter IV Catheter Type [Right Triple Lumen Cath Femoral] IV Catheter Type [Left Peripheral IV Antecubital] IV Catheter Type [Left Hand] Peripheral IV IV Catheter Type [Right Peripheral IV Antecubital] Active Medications - Current Medications Current Medications: Generic Name Dose Route Start Last Admin Trade Name Freq PRN Reason Stop Dose Admin Acetaminophen 650 mg 10/02/20 09:00 10/20/20 23:32 Acetaminophen 325 Mg/10.15 Ml Oral Liqd Unit Dose PO 650 mg Q4HR PRN Administration Non Cardiac Pain or Temp>100.5 Amiodarone HCl 200 mg 10/05/20 11:00 10/20/20 22:55 Amiodarone 200 Mg Tab PO 200 mg BID TAYLOR Administration Lipase/Protease/Amylase 1 each 09/09/20 09:40 10/21/20 08:06 Lipase 10,500/Protease 25,000/Amylase 43,750 (Units) Dr Armenta FEEDTUBE 1 each PRN PRN Administration For Clogged Feeding Tube Hydralazine HCl 50 mg 09/23/20 14:00 10/21/20 06:31 Hydralazine 25 Mg Tab PO 50 mg Q8HR TAYLOR Administration Sodium Chloride 1,000 mls @ 75 mls/hr 10/18/20 13:00 Nacl 0.9% 1000 Ml IV DIRECT TAYLOR Insulin Glargine 40 units 10/19/20 10:00 10/20/20 11:36 Insulin Glargine 100 Units/Ml SUB-Q 40 units DAILY TAYLOR Administration Insulin Human Lispro 0 unit 09/12/20 12:00 10/21/20 06:32 Insulin Lispro 100 Unit/Ml SUB-Q 3 unit Q6HR TAYLOR Administration Protocol Lansoprazole 30 mg 10/13/20 10:00 10/20/20 09:02 Lansoprazole 30 Mg Solutab FEEDTUBE 30 mg DAILY TAYLOR Administration Levetiracetam 1,500 mg 09/28/20 10:00 10/20/20 22:55 Levetiracetam 500 Mg/5 Ml Oral Liqd PO 1,500 mg BID TAYLOR Administration Multivitamins 5 ml 09/09/20 12:00 10/20/20 09:35 Multivitamins 5 Ml Oral Liquid PO Not Given QDAY TAYLOR Ondansetron HCl 4 mg 09/07/20 17:55 09/19/20 04:00 Ondansetron 4 Mg/2 Ml Inj IV 4 mg Q8H PRN Administration Nausea And Vomiting Senna/Docusate Sodium 2 tab 09/20/20 11:00 Sennosides/Docusate Sodium 8.6/50 Mg Tab PO BID PRN Laxative Effect Simple Syrup 15 ml 09/09/20 09:40 10/19/20 22:12 Simple Syrup 15 Ml FEEDTUBE 15 ml PRN PRN Administration Hypoglycemia Simple Syrup 30 ml 09/09/20 09:40 10/20/20 06:41 Simple Syrup 15 Ml FEEDTUBE 30 ml PRN PRN Administration Hypoglycemia Sodium Bicarbonate 325 mg 09/09/20 09:40 10/21/20 08:06 Sodium Bicarbonate 325 Mg Tab FEEDTUBE 325 mg PRN PRN Administration For Clogged Feeding Tube Sodium Chloride 10 ml 09/07/20 22:00 10/20/20 22:55 Sodium Chloride 0.9% 10 Ml Flush Syringe IV 10 ml BID TAYLOR Administration Sodium Chloride 10 ml 09/07/20 17:55 Sodium Chloride 0.9% 10 Ml Flush Syringe IV PRN PRN LINE FLUSH Valproic Acid 1,000 mg 09/28/20 10:00 10/20/20 22:55 Valproic Acid 250 Mg/5 Ml Oral Liqd FEEDTUBE 1,000 mg BID TAYLOR Administration Nutrition/Malnutrition Assess - Dietary Evaluation Nutrition/Malnutrition Findings: Nutrition Notes Start: 09/08/20 12:01 Freq: Status: Active Protocol: Document 10/19/20 08:51 AT (Rec: 10/19/20 08:59 AT [id number]) Co-Sign 10/19/20 08:51 CW Nutrition Notes Initial or Follow up Reassessment Current Diagnosis Acute Kidney Injury, Respiratory Failure Other Pertinent Diagnosis s/p cardiac arrest, COVID(-), Anoxic Encephalopathy, Pneu, Tubular Necrosis Current Diet Nepro 1.8 at 45 mL/hr (goal rate) Labs/Tests POC BG 244 3/10 BUN 104 Cr 4.6 Pertinent Medications Humalog Pancreaze NS at 75 mL/hr Height 6 ft Weight 98.6 kg [place] Body Weight (kg) 80.90 BMI 29.5 Weight change and time frame Weight change noted, possibly due to error. Yesterday, weight recorded at 157.1 kg Weight Status Morbidly Obese Subjective/Other Information Follow up for TF stability. Observed pt at bedside, TF running at goal rate and tolerating well per RN. Will reduce flushes for generalized edema. Percent of energy/protein needs met: 100%/59% Burn Absent Trauma Absent GI Symptoms None Difficulty In Swallowing Food Allergy No Current % PO Negligible Minimum of two criteria No Fluid Accumulation Mild (non-severe) #3 Nutrition Diagnosis Increased nutrient needs ( specify in comment below) As Evidenced by Signs and Symptoms pressure ulcer healed Diagnosis Progress(for reassessment Resolved documentation) #1 Nutrition Diagnosis Inadequate oral intake Diagnosis Progress(for reassessment Continues documentation) Is patient on ventilator? No Is Patient Ambulatory and/or Out of Bed No REE-([facility]-confined to bed) 2181.756 Kcal/Kg value to use for calculation 19 Approximate Energy Requirements Using 1873 kcal/Kg Calculation Used for Recommendations Kcal/kg Additional Notes PRO needs: 119-143g (1-1.2 g/ kg AdBW 119 kg) Fluid needs: 1 mL/kcal or per MD Nutrition Intervention Change Diet Order: Continue TF Nutrition Support: Nepro 1.8 at 45 mL/hr. Flush with 120 mL q4h. Kcal 1,944 Protein (gm) 87 Fluid (mL) 785 Goal #1 Meet kcal and protein needs as best as possible via TF Anticipated Discharge Needs: Nepro 1.8 at 45 mL/hr Follow-Up By: 10/23/20 Additional Comments F/U for stable TF, edema
[2020-10-21] MEDS: levETIRAcetam 500 MG/5 ML ORAL LIQD PO SCH ×2 (09:01→21:44)
[2020-10-21] MEDS: LANSOPRAZOLE 30 MG SOLUTAB FEEDTUBE SCH (09:01)
[2020-10-21] MEDS: VALPROIC ACID 250 MG/5 ML ORAL LIQD FEEDTUBE SCH ×2 (09:01→21:44)
[2020-10-21] MEDS: AMIODARONE 200 MG TAB PO SCH ×2 (09:02→21:46)
[2020-10-21] MEDS: INSULIN GLARGINE 100 UNITS/ML SUB-Q SCH (09:15)
[2020-10-21] MEDS: MULTIVITAMINS 5 ML ORAL LIQUID PO SCH (09:17)
[2020-10-21 09:36] LABS: Calcium 9.8 mg/dL (8.4-10.2)
[2020-10-21 18:35] LABS: Calcium 9.6 mg/dL (8.4-10.2)
--- NOTE | 2020-10-21 20:24 | Progress Note ---
Assessment and Plan Assessment and plan #Acute kidney injury on chronic kidney disease, baseline creatinine around 1.8, briefly on iHD, currently nonoliguric likely felt to be due to acute tubular necrosis (multifactorial). No emergent indication for renal replacement therapy. S/p IVF, continue free water flushes - increase to 300 q4h. Elevated BUN likely due to tube feeds. He is a poor candidate for renal replacement therapy. Check BMP daily. Maintain intake and output logs, avoid any nephrotoxic medication Anemia with renal failure, s/p erythropoietin Keep MAP > 65 Renally dose medications - antibiotics and antiepileptics #Out of hospital cardiac arrest #Anoxic encephalopathy, s/p trach and PEG. Neurology evaluation noted. #Bilateral pneumonia due to Covid infection - S/p completion of antibiotic course - ID following, s/p trach #Recommend goals of care discussion #Prognosis guarded Subjective Date of service: 10/21/20 Principal diagnosis: Abnormal LFTs, s/p cardiac arrest, acute kidney injury with ATN Interval history: Mental status remains unchanged UOP - 2 L Patient was seen for his renal issues Nursing, interdisciplinary and consult notes were reviewed Vitals, input and output, medications and labs were reviewed Objective - Exam Narrative Exam: General: No acute distress HEENT: Oral mucosa moist Neck: Supple, no JVD Chest: Trached. Heart: RRR, S1 and S2, no pericardial rub Abdomen: Soft, nontender, no renal bruit Extremity: No peripheral cyanosis, edema Neurological: Unresponsive Dermatology: No skin rash Psych: No agitation Musculoskeletal: No joint effusion - Vital Signs Vital signs: Vital Signs - 12hr 10/21/20 10/21/20 10/21/20 09:30 10:00 11:00 Temperature Pulse Rate 77 Pulse Rate [ 77 Left Radial] Pulse Rate [ 77 Right Radial] Respiratory 17 Rate Blood Pressure O2 Sat by Pulse 97 98 Oximetry 10/21/20 10/21/20 10/21/20 12:45 13:11 15:42 Temperature 98.6 F Pulse Rate 70 87 77 Pulse Rate [ Left Radial] Pulse Rate [ Right Radial] Respiratory 12 Rate Blood Pressure 136/68 132/66 O2 Sat by Pulse 94 Oximetry 10/21/20 10/21/20 16:12 19:26 Temperature 98.2 F 98.3 F Pulse Rate 70 68 Pulse Rate [ Left Radial] Pulse Rate [ Right Radial] Respiratory 12 20 Rate Blood Pressure 141/76 116/52 O2 Sat by Pulse 94 99 Oximetry - Lab 10/16/20 07:13 10/21/20 18:02 Most recent lab results ABG pH 7.468 (7.320-7.450) H 10/02/20 10:16 ABG pCO2 33.4 mm Hg 09/11/20 05:40 ABG pO2 112.1 mm Hg (80.0-90.0) H 09/11/20 05:40 ABG HCO3 28.1 mmol/L (20.0-26.0) H 09/11/20 05:40 ABG O2 Saturation 98.4 % (95.0-99.0) 09/11/20 05:40 Calcium 9.6 mg/dL (8.4-10.2) 10/21/20 18:02 Phosphorus 8.00 mg/dL (2.5-4.5) H 09/08/20 12:02 Magnesium 1.80 mg/dL (1.7-2.3) 09/08/20 12:02 Urine Creatinine < 4.2 mg/dL (0.1-20.0) 10/13/20 14:45 Urine Sodium 10 mmol/L 10/13/20 14:45 Medications & Allergies - Medications Allergies/Adverse Reactions: Allergies No Known Allergies Allergy (Verified 09/21/20 21:00) Verified with , no known drug allergies. Home Medications: Home Medications Medication Instructions Recorded Confirmed Last Taken Type Albuterol Sulfate 60 mcg IH PRN 09/11/20 09/11/20 Unknown History Cholecalciferol (Vitamin D3) 25 tab PO DAILY 09/11/20 09/11/20 Unknown History Cozaar 25 tab PO DAILY 09/11/20 09/11/20 Unknown History HumaLOG 14 unit SQ AC 09/11/20 09/11/20 Unknown History Hydralazine HCl 50 tab PO TID 09/11/20 09/11/20 Unknown History Isosorbide Dinitrate 30 mg PO DAILY 09/11/20 09/11/20 Unknown History Lantus VIAL 54 units SQ HS 09/11/20 09/11/20 Unknown History Lasix 20 tab PO DAILY 09/11/20 09/11/20 Unknown History Nifedipine 30 tab PO DAILY 09/11/20 09/11/20 Unknown History Active Medications: Generic Name Dose Route Start Last Admin Trade Name Freq PRN Reason Stop Dose Admin Acetaminophen 650 mg 10/02/20 09:00 10/20/20 23:32 Acetaminophen 325 Mg/10.15 Ml Oral Liqd Unit Dose PO 650 mg Q4HR PRN Administration Non Cardiac Pain or Temp>100.5 Amiodarone HCl 200 mg 10/05/20 11:00 10/21/20 09:02 Amiodarone 200 Mg Tab PO 200 mg BID TAYLOR Administration Lipase/Protease/Amylase 1 each 09/09/20 09:40 10/21/20 08:06 Lipase 10,500/Protease 25,000/Amylase 43,750 (Units) Dr Armenta FEEDTUBE 1 each PRN PRN Administration For Clogged Feeding Tube Hydralazine HCl 50 mg 09/23/20 14:00 10/21/20 13:11 Hydralazine 25 Mg Tab PO 50 mg Q8HR TAYLOR Administration Sodium Chloride 1,000 mls @ 75 mls/hr 10/18/20 13:00 Nacl 0.9% 1000 Ml IV DIRECT TAYLOR Insulin Glargine 40 units 10/19/20 10:00 10/21/20 09:15 Insulin Glargine 100 Units/Ml SUB-Q 40 units DAILY TAYLOR Administration Insulin Human Lispro 0 unit 09/12/20 12:00 10/21/20 17:19 Insulin Lispro 100 Unit/Ml SUB-Q Not Given Q6HR [facility] Protocol Lansoprazole 30 mg 10/13/20 10:00 10/21/20 09:01 Lansoprazole 30 Mg Araseli FEEDTUBE 30 mg DAILY TAYLOR Administration Levetiracetam 1,500 mg 09/28/20 10:00 10/21/20 09:01 Levetiracetam 500 Mg/5 Ml Oral Liqd PO 1,500 mg BID TAYLOR Administration Multivitamins 5 ml 09/09/20 12:00 10/21/20 09:17 Multivitamins 5 Ml Oral Liquid PO Not Given QDAY [facility] [place] Ondansetron HCl 4 mg 09/07/20 17:55 09/19/20 04:00 Ondansetron 4 Mg/2 Ml Inj IV 4 mg Q8H PRN Administration Nausea And Vomiting Senna/Docusate Sodium 2 tab 09/20/20 11:00 Sennosides/Docusate Sodium 8.6/50 Mg Tab PO BID PRN Laxative Effect Simple Syrup 15 ml 09/09/20 09:40 10/19/20 22:12 Simple Syrup 15 Ml FEEDTUBE 15 ml PRN PRN Administration Hypoglycemia Simple Syrup 30 ml 09/09/20 09:40 10/20/20 06:41 Simple Syrup 15 Ml FEEDTUBE 30 ml PRN PRN Administration Hypoglycemia Sodium Bicarbonate 325 mg 09/09/20 09:40 10/21/20 08:06 Sodium Bicarbonate 325 Mg Tab FEEDTUBE 325 mg PRN PRN Administration For Clogged Feeding Tube Sodium Chloride 10 ml 09/07/20 22:00 10/21/20 09:16 Sodium Chloride 0.9% 10 Ml Flush Syringe IV 10 ml BID TAYLOR Administration Sodium Chloride 10 ml 09/07/20 17:55 Sodium Chloride 0.9% 10 Ml Flush Syringe IV PRN PRN LINE FLUSH Valproic Acid 1,000 mg 09/28/20 10:00 10/21/20 09:01 Valproic Acid 250 Mg/5 Ml Oral Liqd FEEDTUBE 1,000 mg BID TAYLOR Administration
[2020-10-22] MEDS: hydrALAZINE 25 MG TAB PO SCH ×3 (06:44→22:23)
[2020-10-22] MEDS: INSULIN LISPRO 100 UNIT/ML SUB-Q SCH ×3 (06:50→17:00)
[2020-10-22] MEDS: levETIRAcetam 500 MG/5 ML ORAL LIQD PO SCH ×2 (09:08→22:24)
[2020-10-22] MEDS: VALPROIC ACID 250 MG/5 ML ORAL LIQD FEEDTUBE SCH ×2 (09:11→22:24)
[2020-10-22] MEDS: MULTIVITAMINS 5 ML ORAL LIQUID PO SCH (09:12)
[2020-10-22] MEDS: AMIODARONE 200 MG TAB PO SCH ×2 (09:12→22:24)
[2020-10-22] MEDS: LANSOPRAZOLE 30 MG SOLUTAB FEEDTUBE SCH (09:12)
[2020-10-22] MEDS: INSULIN GLARGINE 100 UNITS/ML SUB-Q SCH (09:12)
--- NOTE | 2020-10-22 09:18 | Progress Note ---
Assessment and Plan Assessment and plan: S/p cardiopulmonary arrest Toxic metabolic encephalopathy +/-anoxic injury Acute hypoxic respiratory failure Acute kidney injury Seizure disorder Hyperkalemia COVID-19 pneumonia Sepsis Transaminitis Morbid obesity. 09/15/2020. MRI brain for further evaluation. Continue AEDs of valproic acid and Keppra. Continue hemodialysis per nephrology recommendations. Overall prognosis remains guarded and poor. 09/16/2020. ID recommends continue to monitor patient off of antibiotics. Fever most likely of central etiology. Patient with questionable seizures versus myoclonus from anoxic brain injury. Patient unable to undergo MRI due to body habitus. Continue AEDs per neurology recommendations. Inflammatory markers elevated. Patient was recently hospitalized for COVID-19 pneumonia [place] to being hospitalized [place]. Patient not a candidate for remdesivir due to hepatic and renal failure. Viral hepatitis panel negative. Overall prognosis extremely poor. 09/17/2020. Fevers have resolved over the past 48 hours. Continue to monitor off antibiotics per ID recommendations. Patient with questionable seizures versus myoclonus from anoxic brain injury. Patient unable to undergo MRI due to body habitus. EEG is nonspecific but given CT of head findings consistent with anoxic encephalopathy, brain injury. Continue AEDs per neurology recommendations. Inflammatory markers elevated. Patient was recently hospitalized for COVID-19 pneumonia at the [place] [facility] to being hospitalized [place]. Patient not a candidate for remdesivir due to hepatic and renal failure. Viral hepatitis panel negative. Patient is s/p emergent HD on Friday (hyperK) and Friday - 09/08. Patient also S/p HD 09/15. Continue hemodialysis per nephrology recommendations. Patient currently on AC/PRVC mode ventilation with rate of 30, tidal volume 475, FiO2 30% and PEEP of 6. As stated in neuro note, overall prognosis is very poor. 09/18/2020. Fevers have resolved over the past 72 hours. Continue to monitor off antibiotics per ID recommendations. Leukocytosis persistent for the past 4 days. Patient with questionable seizures/myoclonus from anoxic brain injury. Patient unable to undergo MRI due to body habitus. EEG is nonspecific but given CT of head findings consistent with anoxic encephalopathy, brain injury. Continue AEDs per neurology recommendations. Inflammatory markers elevated. Patient was recently hospitalized for COVID-19 pneumonia at the [place] [facility] to being hospitalized [place]. Patient not a candidate for remdesivir due to hepatic and renal failure. Viral hepatitis panel negative. Patient currently on AC/PRVC mode ventilation with rate of 30, tidal volume 475, FiO2 30% and PEEP of 6. Overall prognosis remains guarded/poor. 07/19/2021 Fevers have resolved over the past 4 days. Continue to monitor off antibiotics per ID recommendations. Leukocytosis persistent for the past 4 days. Patient with questionable seizures/myoclonus from anoxic brain injury. Patient unable to undergo MRI due to body habitus. EEG is nonspecific but given CT of head findings consistent with anoxic encephalopathy, brain injury. Continue AEDs per neurology recommendations. Inflammatory markers elevated. Patient was recently hospitalized for COVID-19 pneumonia at the [place] [facility] to being [place]. Patient not a candidate for remdesivir due to hepatic and renal failure. Viral hepatitis panel negative. Patient currently on AC/PRVC mode ventilation with rate of 30, tidal volume 475, FiO2 30% and PEEP of 6. Overall prognosis remains guarded/poor. 09/20/2020 -Surgery consulted for PEG and trach, will continue to follow. 09/21/2020; patient will have PEG and trach by Dr. hayes today. Prognosis is poor. Continue with current management. Housing And Residence Life Director is following for vent management. 09/22/2020; patient had PEG and trach yesterday. 09/23/2020; continue PEG Tube Feeding. 07/24/2021; continue PEG tube feeding, patient is on Keppra, lorazepam and phenytoin per neurology recommendation. Patient is on hemodialysis and nephrology is following. Management of mechanical ventilation for CCM. 09/25/2020. Continue PEG tube feeding, patient is on Keppra, lorazepam and phenytoin per neurology recommendation. Patient is on hemodialysis and nephrology is following. Management of mechanical ventilation for CCM. Continue PSV/CPAP 07/16. Continue tracheostomy care, secretion control and airway management. 09/26/2020. Patient has tolerated PSV for approximately 48 hours. I discussed with pulmonary possibility of T-piece today. Continue tracheostomy care, se cretion control and airway management. If patient tolerates T-piece trials, patient will be transferred to the floor. Continue AEDs of Keppra and phenytoin as well as Ativan as needed per neurology recommendations. Continue hemodialysis per nephrology. Continue TF with aspiration precautions. 09/27/2020. Patient continues to tolerate PSV 12/6 at 30% FiO2. T-piece trials per pulmonary. Continue tracheostomy care, secretion control and airway management. Continue AEDs of Keppra and phenytoin as well as Ativan as needed per neurology recommendations. Continue hemodialysis per nephrology. Continue TF with aspiration precautions. 09/28/2020. Patient for T-piece trials per pulmonary. Continue hemodialysis per nephrology. Continue tracheostomy care, secretion control and airway manageme nt. Continue AEDs of Keppra and phenytoin as well as Ativan as needed per neurology recommendations. Continue TF with aspiration precautions. 09/29/2020, continue T-piece trials per pulmonary. Continue hemodialysis per nephrology. Continue strict I/O's and labs daily. Monitor for renal recovery. 09/30/2020. Continue T-piece trials per pulmonary recommendations. Continue tracheostomy care, secretion control and airway management. Continue hemodialysis per nephrology. Tight glycemic control. Continue TF with aspiration precautions. 10/01/2020. Patient with T-piece trials and tolerating. Wean to trach collar per pulmonary. Continue tracheostomy care, secretion control and airway paola gement. Continue hemodialysis per nephrology. Tight glycemic control. Continue TF with aspiration precautions. Case management consultation for placement 10/02/20. Continue T-piece trials per pulmonary recommendations. Continue tracheostomy care, secretion control and airway management. Continue hemodialysis per nephrology. Tight glycemic control. Continue TF with aspiration precautions. 10/03/2020. Continue T-piece trials per pulmonology. Continue tracheostomy care, secretion control and airway management. Continue modalities per nephrology. Discharge planning underway. Needs placement to SNF versus hospice. 10/04/2020. Patient remained febrile with temperature 101 F. Ordered blood culture, chest x-ray, urinalysis. Plan to start antibiotics after blood cultures been obtained. Patient remains hemodynamically stable. Plan to discharge to SNF versus inpatient hospice on the way. 10/05/2020. Started on antibiotics yesterday. Awaiting blood culture. He developed atrial fibrillation with RVR and was placed on amiodaron see awaiting placement. E drip with subsequent conversion to SR. Now on amiodarone PO. Discussed with patients - she would like him to go inpatient hospice or a press tender long goods care facility. As per CM, [facility] not approving LTC placement at this time. As is still undecided about hospice, inpatient hospice is not accepting h im at this time. has placed a referral to a SNF with inpatient dialysis. Awaiting response from the SNF. 10/06/2020. Hb drop noted. Not on therapeutic anticoagulation [atrial fibrillation] due to duration of atrial fibrillation [lasted less than 2 hours] and also drop in hemoglobin. Continue to monitor hemoglobin. Repeat labs ordered today. Vitals stable. Discussed with patient's yesterday 10/07. HR is controlled. Pending placement. As per CM notes, patient denied acceptance at a [facility] as he has [facility] insurance. Will discuss with CM to know other options are available. 10/08. Vitals stable. Will discuss discharge plan with spouse today as it looks like only option left is inpatient hospice. 10/09. Vitals stable. Will discuss discharge plan with spouse today as it looks like only option left is inpatient hospice 10/10. Discussed with patient spouse. Patient spouse asking to see patient in the hospital. convention services manager on board. Patient has not had hemodialysis since 10/05. Creatinine stable at 4.6. Nephrology on board 10/11. DC planning underway. Patient spouse to see patient in hospital today. Vitals remained stable. Creatinine stable as well. Increase Lantus to 36 units daily. 10/12. Patient started having fever yesterday-temp 102 Fahrenheit. Stat blood cultures were drawn today, urinalysis, urine culture, chest x-ray, procalcitonin ordered. Start on empirical antibiotics for possible hospital acquired pneumonia. ID consulted. H&H shows hemoglobin 4.6 patient will receive 2 units PRBCs.. Check H&H after admission. Check stool guaiac. 10/13. Patient with new sepsis. Follow-up blood, sputum and urine cultures. Continue empiric antibiotics of cefepime and vancomycin. Chest x-ray appears to be unchanged. Urinalysis revealed pyuria. H&H is stabilized from PRBCs. Continue to follow H&H 10/14. Urine culture reveals yeast. Blood cultures thus far negative. Continue empiric antibiotics of cefepime and vancomycin per ID recommendations. Nephro courtney had long discussion regarding initiation of hemodialysis. Twist Packer conveyed to the spouse Yoko yesterday that prognosis is overall not good and his mortality risk is very high. Nephrology to potentially initiate hemodialysis today. I had a follow-up discussion with the spouse Yoko and reiterated poor prognosis. All questions answered. 10/15. Continue empiric antibiotics of cefepime and vancomycin per ID recommendations. Prognosis remains poor. Initiation of hemodialysis per nephrology recommendations. 10/16. PEG tube currently not flushing per nursing. GI consultation for PEG tube dysfunction. Repeat blood cultures have been negative x72 hours. Continue IV antibiotics per ID recommendations. Patient with Acute kidney injury currently nonoliguric likely felt to be due to acute tubular necrosis which has been felt to be multifactorial. Nephrology reports no urgent or emergent indication for renal replacement therapy and that the wants to proceed with renal replacement therapy. Nephrology informed her that patient is high risk for any adverse outcome including mortality risk during dialysis. Overall poor prognosis. 10/17/2020; patient is on PEG tube feeding and functional. Repeat blood cultures were negative. Patient does not have any fever overnight. Patient finished 5 days of IV cefepime and vancomycin yesterday. 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 And he is a poor candidate for dialysis. Will follow with nephrology for further recommendation. Overall prognosis is very poor. I order CT head to assess if brain edema is resolved, and to assess for anoxic brain injury. I put a consult for neurology to assess his prognosis and discussed with the family from neurology point of view. 10/18/2020; patient was evaluated by neurology and recommend MRI and EEG, MRI was not done because patient does not fit to the MRI table. CT head is ordered yesterday. Evaluated by ID and recommend to monitor off antibiotics. Nephrology is following. 10/19/2020 patient was evaluated by neurology and recommend MRI and EEG, MRI was not done because patient does not fit to the MRI table. CT head is ordered yesterday. Evaluated by ID and recommend to monitor off antibiotics. Nephrology is following. 10/20/2020; CT head was done and showed significant decrease in brain swelling. Nephrology is following. Pending SNF placement. 10/21/2020; no change in his brain function. Nephrology is following and said he is a poor candidate for dialysis. Ending SNF placement. Prognosis poor 10/22/2020;no change in his brain function. Nephrology is following and said he is a poor candidate for dialysis. Pending SNF placement. Prognosis poor. History Interval history: Patient was seen and evaluated this morning Patient is noncommunicative Patient is on PEG and Trach Hospitalist Physical - Physical exam Narrative exam: On mechanical ventilation. Patient has PEG and a trach The patient appeared well nourished and normally developed. Vital signs as documented. Head exam is unremarkable. No scleral icterus . Neck is without jugular venous distension, thyromegaly, or carotid bruits. Lungs are clear to auscultation. Cardiac exam reveals regular rate and Rhythm. Abdominal exam reveals normal bowel sounds, nontender, no organomegaly. Extremities are nonedematous and both femoral and pedal pulses are normal. 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 SAS PROGRAMMER: Patient is noncommunicative - Constitutional Vitals: Temp Pulse Resp BP Pulse Ox 97.5 F L 70 15 122/52 94 10/22/20 07:03 10/22/20 07:03 10/22/20 07:03 10/22/20 07:03 10/22/20 08:19 General appearance: Present: other (On mechanical ventilation) HEART Score - HEART Score Troponin: Troponin T 0.076 ng/mL (0.00-0.029) H 09/07/20 14:00 Results - Labs CBC & Chem 7: 10/16/20 07:13 10/21/20 18:02 Labs: Laboratory Last Values WBC 7.8 K/mm3 (4.5-11.0) 10/16/20 07:13 RBC 2.87 M/mm3 (3.65-5.03) L 10/16/20 07:13 Hgb 8.4 gm/dl (11.8-15.2) L 10/16/20 07:13 Hct 25.3 % (35.5-45.6) L 10/16/20 07:13 MCV 88 fl (84-94) 10/16/20 07:13 MCH 29 pg (28-32) 10/16/20 07:13 MCHC 33 % (32-34) 10/16/20 07:13 RDW 18.7 % (13.2-15.2) H 10/16/20 07:13 Plt Count 222 K/mm3 (140-440) 10/16/20 07:13 Lymph % (Auto) 21.2 % (13.4-35.0) 10/16/20 07:13 [place] % (Auto) 14.4 % (0.0-7.3) H 10/16/20 07:13 Eos % (Auto) 1.9 % (0.0-4.3) 10/16/20 07:13 Baso % (Auto) 0.3 % (0.0-1.8) 10/16/20 07:13 Lymph # (Auto) 1.6 K/mm3 (1.2-5.4) 10/16/20 07:13 [place] # (Auto) 1.1 K/mm3 (0.0-0.8) H 10/16/20 07:13 Eos # (Auto) 0.2 K/mm3 (0.0-0.4) 10/16/20 07:13 Baso # (Auto) 0.0 K/mm3 (0.0-0.1) 10/16/20 07:13 Add Manual Diff Complete 10/12/20 08:36 Total Counted 100 10/12/20 08:36 Seg Neutrophils % 62.2 % (40.0-70.0) 10/16/20 07:13 Seg Neuts % (Manual) 75.0 % (40.0-70.0) H 10/12/20 08:36 Band Neutrophils % 8.0 % 09/30/20 06:57 Lymphocytes % (Manual) 17.0 % (13.4-35.0) 10/12/20 08:36 Monocytes % (Manual) 5.0 % (0.0-7.3) 10/12/20 08:36 Eosinophils % (Manual) 2.0 % (0.0-4.3) 10/12/20 08:36 Basophils % (Manual) 1.0 % (0.0-1.8) 10/12/20 08:36 Metamyelocytes % 2.0 % 09/08/20 Unknown Promyelocytes % 0 % 10/04/20 10:32 Nucleated RBC % Not Reportable 10/12/20 08:36 Seg Neutrophils # 4.8 K/mm3 (1.8-7.7) 10/16/20 07:13 Seg Neutrophils # Man 10.6 K/mm3 (1.8-7.7) H 10/12/20 08:36 Band Neutrophils # 0.0 K/mm3 10/12/20 08:36 Lymphocytes # (Manual) 2.4 K/mm3 (1.2-5.4) 10/12/20 08:36 Abs React Lymphs (Man) 0.0 K/mm3 10/12/20 08:36 Monocytes # (Manual) 0.7 K/mm3 (0.0-0.8) 10/12/20 08:36 Eosinophils # (Manual) 0.3 K/mm3 (0.0-0.4) 10/12/20 08:36 Basophils # (Manual) 0.1 K/mm3 (0.0-0.1) 10/12/20 08:36 Metamyelocytes # 0.0 K/mm3 10/12/20 08:36 Myelocytes # 0.0 K/mm3 10/12/20 08:36 Promyelocytes # 0.0 K/mm3 10/12/20 08:36 Blast Cells # 0.0 K/mm3 10/12/20 08:36 WBC Morphology Not Reportable 10/12/20 08:36 Hypersegmented Neuts Not Reportable 10/12/20 08:36 Hyposegmented Neuts Not Reportable 10/12/20 08:36 Hypogranular Neuts Not Reportable 10/12/20 08:36 Smudge Cells Not Reportable 10/12/20 08:36 Toxic Granulation Not Reportable 10/12/20 08:36 Toxic Vacuolation Not Reportable 10/12/20 08:36 Dohle Bodies Not Reportable 10/12/20 08:36 Pelger-Huet Anomaly Not Reportable 10/12/20 08:36 Justus Rods Not Reportable 10/12/20 08:36 Platelet Estimate Consistent w auto 10/12/20 08:36 Clumped Platelets Not Reportable 10/12/20 08:36 Plt Clumps, EDTA Not Reportable 10/12/20 08:36 Large Platelets Not Reportable 10/12/20 08:36 Giant Platelets Not Reportable 10/12/20 08:36 Platelet Satelliting Not Reportable 10/12/20 08:36 Plt Morphology Comment Not Reportable 10/12/20 08:36 RBC Morphology Not Reportable 10/12/20 08:36 Dimorphic RBCs Not Reportable 10/12/20 08:36 Polychromasia Not Reportable 10/12/20 08:36 Hypochromasia 1+ 10/12/20 08:36 Poikilocytosis Not Reportable 10/12/20 08:36 Anisocytosis Not Reportable 10/12/20 08:36 Microcytosis Not Reportable 10/12/20 08:36 Macrocytosis Not Reportable 10/12/20 08:36 Spherocytes Not Reportable 10/12/20 08:36 Pappenheimer Bodies Not Reportable 10/12/20 08:36 Sickle Cells Not Reportable 10/12/20 08:36 Target Cells Not Reportable 10/12/20 08:36 Tear Drop Cells Not Reportable 10/12/20 08:36 Ovalocytes Not Reportable 10/12/20 08:36 Helmet Cells Not Reportable 10/12/20 08:36 Bat[place]-Upper [place] Bodies Not Reportable 10/12/20 08:36 [place] Rings Not Reportable 10/12/20 08:36 [place] Cells Not Reportable 10/12/20 08:36 Bite Cells Not Reportable 10/12/20 08:36 Crenated Cell Not Reportable 10/12/20 08:36 Elliptocytes Not Reportable 10/12/20 08:36 Acanthocytes (Spur) Not Reportable 10/12/20 08:36 Rouleaux Not Reportable 10/12/20 08:36 Hemoglobin C Crystals Not Reportable 10/12/20 08:36 Schistocytes Not Reportable 10/12/20 08:36 Malaria parasites Not Reportable 10/12/20 08:36 Tommie Bodies Not Reportable 10/12/20 08:36 Hem Pathologist Commnt No 10/12/20 08:36 PT 16.1 Sec. (12.2-14.9) H 09/12/20 04:00 INR 1.31 (0.87-1.13) H 09/12/20 04:00 APTT 32.4 Sec. (24.2-36.6) 09/09/20 10:00 D-Dimer 8315.85 ng/mlDDU (0-234) H 09/07/20 14:00 ABG pH 7.468 (7.320-7.450) H 10/02/20 10:16 POC ABG pCO2 37.1 mmHg (32.0-48.0) 10/02/20 10:16 ABG pCO2 33.4 mm Hg 09/11/20 05:40 POC ABG pO2 72.9 mmHg (83-108) L 10/02/20 10:16 ABG pO2 112.1 mm Hg (80.0-90.0) H 09/11/20 05:40 POC ABG HCO3 26.3 10/02/20 10:16 ABG HCO3 28.1 mmol/L (20.0-26.0) H 09/11/20 05:40 ABG O2 Saturation 98.4 % (95.0-99.0) 09/11/20 05:40 ABG O2 Content 11.6 (0.0-44) 09/11/20 05:40 POC ABG Base Excess 2.6 10/02/20 10:16 ABG Base Excess 5.4 mmol/L (-2.0-3.0) H 09/11/20 05:40 ABG Hemoglobin 10.1 (12.0-17.5) L 10/02/20 10:16 ABG Oxyhemoglobin 93.1 (94-98) L 10/02/20 10:16 ABG Carboxyhemoglobin 1.2 % (0.0-5.0) 09/11/20 05:40 ABG Methemoglobin 0.3 (0.0-1.5) 10/02/20 10:16 ABG Sodium 138.5 mmol/L (136.0-145.0) 10/02/20 10:16 ABG Potassium 3.9 mmol/L (3.40-4.50) 10/02/20 10:16 ABG Chloride 108.0 mmol/L (98-107) H 10/02/20 10:16 ABG Glucose 289 mg/dL (65-95) H 10/02/20 10:16 Oxyhemoglobin 96.8 % (95.0-99.0) 09/11/20 05:40 Carboxyhemoglobin 0.8 (0.5-1.5) 10/02/20 10:16 FiO2 35 10/02/20 10:16 Sodium 137 mmol/L (137-145) 10/21/20 18:02 Potassium 4.3 mmol/L (3.6-5.0) 10/21/20 18:02 Chloride 99.7 mmol/L (98-107) 10/21/20 18:02 Carbon Dioxide 29 mmol/L (22-30) 10/21/20 18:02 Anion Gap 13 mmol/L 10/21/20 18:02 BUN 110 mg/dL (9-20) H 10/21/20 18:02 Creatinine 4.5 mg/dL (0.8-1.3) H 10/21/20 18:02 Estimated GFR 16 ml/min 10/21/20 18:02 BUN/Creatinine Ratio 24 % 10/21/20 18:02 Glucose 160 mg/dL (75-100) H 10/21/20 18:02 POC Glucose 134 mg/dL (70-105) H 10/22/20 06:50 Osmolality 353 Mosm/kg 10/13/20 09:29 Lactic Acid 2.90 mmol/L (0.7-2.0) H* 09/17/20 13:52 Uric Acid 8.6 mg/dL (3.5-7.6) H 10/13/20 09:29 Calcium 9.6 mg/dL (8.4-10.2) 10/21/20 18:02 Phosphorus 8.00 mg/dL (2.5-4.5) H 09/08/20 12:02 Magnesium 1.80 mg/dL (1.7-2.3) 09/08/20 12:02 Ferritin > 2000.0 ng/mL (30.0-300.0) H 09/07/20 14:00 Total Bilirubin 0.30 mg/dL (0.1-1.2) 10/06/20 10:12 Direct Bilirubin 0.5 mg/dL (0-0.2) H 09/08/20 05:00 Indirect Bilirubin 0.5 mg/dL 09/08/20 05:00 AST 52 units/L (5-40) H 10/06/20 10:12 ALT 28 units/L (7-56) 10/06/20 10:12 Alkaline Phosphatase 94 units/L (35-129) 10/06/20 10:12 Ammonia 50.0 umol/L (25-60) 09/07/20 14:00 Lactate Dehydrogenase 882 units/L (91-180) H 09/07/20 14:00 Total Creatine Kinase 477 units/L (55-170) H 09/07/20 14:00 Troponin T 0.076 ng/mL (0.00-0.029) H 09/07/20 14:00 C-Reactive Protein 1.10 mg/dL (0.00-1.30) 09/07/20 14:00 Total Protein 8.4 g/dL (6.3-8.2) H 10/06/20 10:12 Albumin 2.3 g/dL (3.9-5) L 10/06/20 10:12 Albumin/Globulin Ratio 0.4 % 10/06/20 10:12 Triglycerides 220 mg/dL (2-149) H 09/12/20 Unknown Procalcitonin 2.03 ng/mL (<0.15) 10/12/20 08:19 TSH 2.290 mlU/mL (0.270-4.200) 09/07/20 14:00 Arterial Blood Glucose 289 mg/dL (65-95) H 10/02/20 10:16 Arterial Blood Ionized Calcium 5.2 mg/dL (4.6-5.3) 10/02/20 10:16 Urine Color Yellow (Yellow) 10/13/20 14:45 Urine Turbidity Slightly-cloudy (Clear) 10/13/20 14:45 Urine pH 5.0 (5.0-7.0) 10/13/20 14:45 Ur Specific [place] 1.014 (1.003-1.030) 10/13/20 14:45 Urine Protein 100 mg/dl mg/dL (Negative) 10/13/20 14:45 Urine Glucose (UA) 50 mg/dL (Negative) 10/13/20 14:45 Urine Ketones Neg mg/dL (Negative) 10/13/20 14:45 Urine Blood Mod (Negative) 10/13/20 14:45 Urine Nitrite Neg (Negative) 10/13/20 14:45 Urine Bilirubin Neg (Negative) 10/13/20 14:45 Urine Urobilinogen < 2.0 mg/dL (<2.0) 10/13/20 14:45 Ur Leukocyte Esterase Neg (Negative) 10/13/20 14:45 Urine WBC (Auto) 6.0 /HPF (0.0-6.0) 10/13/20 14:45 Urine RBC (Auto) 29.0 /HPF (0.0-6.0) 10/13/20 14:45 U Epithel Cells (Auto) 1.0 /HPF (0-13.0) 10/13/20 14:45 Urine Bacteria (Auto) 2+ /HPF (Negative) 10/13/20 14:45 Urine WBC Clumps 3+ /HPF 10/12/20 10:25 Hyaline Casts 1 /LPF 10/05/20 09:15 Urine Mucus Few /HPF 10/13/20 14:45 Urine Yeast (Budding) 3+ /HPF 10/13/20 14:45 Urine Sperm Few /HPF (MYCOLOGIST) 10/13/20 14:45 Urine Creatinine < 4.2 mg/dL (0.1-20.0) 10/13/20 14:45 Urine Sodium 10 mmol/L 10/13/20 14:45 Random Vancomycin 12.4 ug/mL (0-40.0) 10/15/20 06:52 Salicylates < 0.3 mg/dL (2.8-20.0) L 09/07/20 14:00 Acetaminophen 5.0 ug/mL (10.0-30.0) L 09/07/20 14:00 Valproic Acid 58.9 ug/mL (50-100) 10/04/20 04:55 Plasma/Serum Alcohol < 0.01 % (0-0.07) 09/07/20 14:00 Coronavirus (PCR) Negative (Negative) 10/19/20 09:20 Hepatitis A IgM Ab Non-reactive (NonReactive) 09/07/20 14:00 Hep Bs Antigen Non-reactive (Negative) 09/07/20 14:00 Hep B Core IgM Ab Non-reactive (NonReactive) 09/07/20 14:00 Hepatitis C Antibody Non-reactive (NonReactive) 09/07/20 14:00 HIV 1&2 Antibody Rapid Non react (Non React) 09/07/20 14:34 HIV P24 Antigen Non react (Non React) 09/07/20 14:34 Blood Type O POSITIVE 10/12/20 11:04 Antibody Screen Negative 10/12/20 11:04 Crossmatch See Detail 10/12/20 11:04 Mae/IV: Voiding Method Condom Catheter IV Catheter Type [Right Triple Lumen Cath Femoral] IV Catheter Type [Left Peripheral IV Antecubital] IV Catheter Type [Left Hand] Peripheral IV IV Catheter Type [Right Peripheral IV Antecubital] Active Medications - Current Medications Current Medications: Generic Name Dose Route Start Last Admin Trade Name Freq PRN Reason Stop Dose Admin Acetaminophen 650 mg 10/02/20 09:00 10/20/20 23:32 Acetaminophen 325 Mg/10.15 Ml Oral Liqd Unit Dose PO 650 mg Q4HR PRN Administration Non Cardiac Pain or Temp>100.5 Amiodarone HCl 200 mg 10/05/20 11:00 10/22/20 09:12 Amiodarone 200 Mg Tab PO 200 mg BID ATYLOR Administration Lipase/Protease/Amylase 1 each 09/09/20 09:40 10/21/20 08:06 Lipase 10,500/Protease 25,000/Amylase 43,750 (Units) Dr Armenta FEEDTUBE 1 each PRN PRN Administration For Clogged Feeding Tube Hydralazine HCl 50 mg 09/23/20 14:00 10/22/20 06:44 Hydralazine 25 Mg Tab PO 50 mg Q8HR TAYLOR Administration Sodium Chloride 1,000 mls @ 75 mls/hr 10/18/20 13:00 Nacl 0.9% 1000 Ml IV DIRECT TAYLOR Insulin Glargine 40 units 10/19/20 10:00 10/21/20 09:15 Insulin Glargine 100 Units/Ml SUB-Q 40 units DAILY TAYLOR Administration Insulin Human Lispro 0 unit 09/12/20 12:00 10/22/20 06:50 Insulin Lispro 100 Unit/Ml SUB-Q Not Given Q6HR [facility] Protocol Lansoprazole 30 mg 10/13/20 10:00 10/22/20 09:12 Lansoprazole 30 Mg Araseli FEEDTUBE 30 mg DAILY TAYLOR Administration Levetiracetam 1,500 mg 09/28/20 10:00 10/22/20 09:08 Levetiracetam 500 Mg/5 Ml Oral Liqd PO 1,500 mg BID TAYLOR Administration Multivitamins 5 ml 09/09/20 12:00 10/22/20 09:12 Multivitamins 5 Ml Oral Liquid PO Not Given QDAY TAYLOR Ondansetron HCl 4 mg 09/07/20 17:55 09/19/20 04:00 Ondansetron 4 Mg/2 Ml Inj IV 4 mg Q8H PRN Administration Nausea And Vomiting Senna/Docusate Sodium 2 tab 09/20/20 11:00 Sennosides/Docusate Sodium 8.6/50 Mg Tab PO BID PRN Laxative Effect Simple Syrup 15 ml 09/09/20 09:40 10/19/20 22:12 Simple Syrup 15 Ml FEEDTUBE 15 ml PRN PRN Administration Hypoglycemia Simple Syrup 30 ml 09/09/20 09:40 10/20/20 06:41 Simple Syrup 15 Ml FEEDTUBE 30 ml PRN PRN Administration Hypoglycemia Sodium Bicarbonate 325 mg 09/09/20 09:40 10/21/20 08:06 Sodium Bicarbonate 325 Mg Tab FEEDTUBE 325 mg PRN PRN Administration For Clogged Feeding Tube Sodium Chloride 10 ml 09/07/20 22:00 10/21/20 21:47 Sodium Chloride 0.9% 10 Ml Flush Syringe IV 10 ml BID TAYLOR Administration Sodium Chloride 10 ml 09/07/20 17:55 Sodium Chloride 0.9% 10 Ml Flush Syringe IV PRN PRN LINE FLUSH Valproic Acid 1,000 mg 09/28/20 10:00 10/22/20 09:11 Valproic Acid 250 Mg/5 Ml Oral Liqd FEEDTUBE 1,000 mg BID TAYLOR Administration Nutrition/Malnutrition Assess - Dietary Evaluation Nutrition/Malnutrition Findings: Nutrition Notes Start: 09/08/20 12:01 Freq: Status: Active Protocol: Document 10/19/20 08:51 AT (Rec: 10/19/20 08:59 AT [id number]) Co-Sign 10/19/20 08:51 CW Nutrition Notes Initial or Follow up Reassessment Current Diagnosis Acute Kidney Injury, Respiratory Failure Other Pertinent Diagnosis s/p cardiac arrest, COVID(-), Anoxic Encephalopathy, Pneu, Tubular Necrosis Current Diet Nepro 1.8 at 45 mL/hr (goal rate) Labs/Tests POC BG 244 3/10 BUN 104 Cr 4.6 Pertinent Medications Humalog Pancreaze NS at 75 mL/hr Height 6 ft Weight 98.6 kg [place] Body Weight (kg) 80.90 BMI 29.5 Weight change and time frame Weight change noted, possibly due to error. Yesterday, weight recorded at 157.1 kg Weight Status Morbidly Obese Subjective/Other Information Follow up for TF stability. Observed pt at bedside, TF running at goal rate and tolerating well per RN. Will reduce flushes for generalized edema. Percent of energy/protein needs met: 100%/59% Burn Absent Trauma Absent GI Symptoms None Difficulty In Swallowing Food Allergy No Current % PO Negligible Minimum of two criteria No Fluid Accumulation Mild (non-severe) #3 Nutrition Diagnosis Increased nutrient needs ( specify in comment below) As Evidenced by Signs and Symptoms pressure ulcer healed Diagnosis Progress(for reassessment Resolved documentation) #1 Nutrition Diagnosis Inadequate oral intake Diagnosis Progress(for reassessment Continues documentation) Is patient on ventilator? No Is Patient Ambulatory and/or Out of Bed No REE-([facility]-confined to bed) 2181.756 Kcal/Kg value to use for calculation 19 Approximate Energy Requirements Using 1873 kcal/Kg Calculation Used for Recommendations Kcal/kg Additional Notes PRO needs: 119-143g (1-1.2 g/ kg AdBW 119 kg) Fluid needs: 1 mL/kcal or per MD Nutrition Intervention Change Diet Order: Continue TF Nutrition Support: Nepro 1.8 at 45 mL/hr. Flush with 120 mL q4h. Kcal 1,944 Protein (gm) 87 Fluid (mL) 785 Goal #1 Meet kcal and protein needs as best as possible via TF Anticipated Discharge Needs: Nepro 1.8 at 45 mL/hr Follow-Up By: 10/23/20 Additional Comments F/U for stable TF, edema
[2020-10-22 15:00] LABS: Calcium 9.9 mg/dL (8.4-10.2)
--- NOTE | 2020-10-22 20:11 | Progress Note ---
Assessment and Plan Assessment and plan #Acute kidney injury on chronic kidney disease, baseline creatinine around 1.8, briefly on iHD, currently nonoliguric. No emergent indication for renal replacement therapy. S/p IVF, continue free water flushes - increased to 300 q4h. Elevated BUN likely due to tube feeds. He is a poor candidate for renal replacement therapy should the need arise. Check BMP daily. Maintain intake and output logs, avoid nephrotoxic medications Anemia with renal failure, s/p erythropoietin Keep MAP > 65 Renally dose medications - antiepileptics noted #Out of hospital cardiac arrest with resulting anoxic encephalopathy. #Anoxic encephalopathy, s/p trach and PEG. Neurology evaluation noted. #Bilateral pneumonia due to Covid infection - S/p completion of antibiotic course - ID following, s/p trach #Recommend goals of care discussion #Prognosis guarded Subjective Date of service: 10/22/20 Principal diagnosis: Abnormal LFTs, s/p cardiac arrest, acute kidney injury with ATN Interval history: Mental status remains unchanged UOP - 1.8 L Patient was seen for his renal issues Nursing, interdisciplinary and consult notes were reviewed Vitals, input and output, medications and labs were reviewed Objective - Exam Narrative Exam: General: No acute distress HEENT: Oral mucosa moist Neck: Supple, no JVD Chest: Trached. Heart: RRR, S1 and S2, no pericardial rub Abdomen: Soft, nontender, no renal bruit Extremity: No peripheral cyanosis, edema Neurological: Unresponsive Dermatology: No skin rash Psych: No agitation Musculoskeletal: No joint effusion - Vital Signs Vital signs: Vital Signs - 12hr 10/22/20 10/22/20 10/22/20 08:19 10:00 11:00 Temperature Pulse Rate 71 Pulse Rate [ 66 Left Radial] Pulse Rate [ 66 Right Radial] Respiratory 20 Rate Blood Pressure O2 Sat by Pulse 94 99 Oximetry O2 Sat by Pulse 94 Oximetry [ Assessment] 10/22/20 10/22/20 10/22/20 11:09 14:24 15:45 Temperature 97.5 F L 97.4 F L Pulse Rate 65 73 Pulse Rate [ Left Radial] Pulse Rate [ Right Radial] Respiratory 15 Rate Blood Pressure 145/61 155/73 O2 Sat by Pulse 92 94 93 Oximetry O2 Sat by Pulse 94 Oximetry [ Assessment] - Lab 10/16/20 07:13 10/22/20 14:39 Most recent lab results ABG pH 7.468 (7.320-7.450) H 10/02/20 10:16 ABG pCO2 33.4 mm Hg 09/11/20 05:40 ABG pO2 112.1 mm Hg (80.0-90.0) H 09/11/20 05:40 ABG HCO3 28.1 mmol/L (20.0-26.0) H 09/11/20 05:40 ABG O2 Saturation 98.4 % (95.0-99.0) 09/11/20 05:40 Calcium 9.9 mg/dL (8.4-10.2) 10/22/20 14:39 Calcium 9.9 mg/dL (8.4-10.2) 10/22/20 14:39 Phosphorus 8.00 mg/dL (2.5-4.5) H 09/08/20 12:02 Magnesium 1.80 mg/dL (1.7-2.3) 09/08/20 12:02 Urine Creatinine < 4.2 mg/dL (0.1-20.0) 10/13/20 14:45 Urine Sodium 10 mmol/L 10/13/20 14:45 Medications & Allergies - Medications Allergies/Adverse Reactions: Allergies No Known Allergies Allergy (Verified 09/21/20 21:00) Verified with , no known drug allergies. Home Medications: Home Medications Medication Instructions Recorded Confirmed Last Taken Type Albuterol Sulfate 60 mcg IH PRN 09/11/20 09/11/20 Unknown History Cholecalciferol (Vitamin D3) 25 tab PO DAILY 09/11/20 09/11/20 Unknown History Cozaar 25 tab PO DAILY 09/11/20 09/11/20 Unknown History HumaLOG 14 unit SQ AC 09/11/20 09/11/20 Unknown History Hydralazine HCl 50 tab PO TID 09/11/20 09/11/20 Unknown History Isosorbide Dinitrate 30 mg PO DAILY 09/11/20 09/11/20 Unknown History Lantus VIAL 54 units SQ HS 09/11/20 09/11/20 Unknown History Lasix 20 tab PO DAILY 09/11/20 09/11/20 Unknown History Nifedipine 30 tab PO DAILY 09/11/20 09/11/20 Unknown History Active Medications: Generic Name Dose Route Start Last Admin Trade Name Freq PRN Reason Stop Dose Admin Acetaminophen 650 mg 10/02/20 09:00 10/20/20 23:32 Acetaminophen 325 Mg/10.15 Ml Oral Liqd Unit Dose PO 650 mg Q4HR PRN Administration Non Cardiac Pain or Temp>100.5 Amiodarone HCl 200 mg 10/05/20 11:00 10/22/20 09:12 Amiodarone 200 Mg Tab PO 200 mg BID TAYLOR Administration Lipase/Protease/Amylase 1 each 09/09/20 09:40 10/21/20 08:06 Lipase 10,500/Protease 25,000/Amylase 43,750 (Units) Dr Armenta FEEDTUBE 1 each PRN PRN Administration For Clogged Feeding Tube Hydralazine HCl 50 mg 09/23/20 14:00 10/22/20 16:28 Hydralazine 25 Mg Tab PO 50 mg Q8HR TAYLOR Administration Sodium Chloride 1,000 mls @ 75 mls/hr 10/18/20 13:00 Nacl 0.9% 1000 Ml IV DIRECT TAYLOR Insulin Glargine 40 units 10/19/20 10:00 10/22/20 09:12 Insulin Glargine 100 Units/Ml SUB-Q 40 units DAILY TAYLOR Administration Insulin Human Lispro 0 unit 09/12/20 12:00 10/22/20 17:00 Insulin Lispro 100 Unit/Ml SUB-Q 3 unit Q6HR TAYLOR Administration Protocol Lansoprazole 30 mg 10/13/20 10:00 10/22/20 09:12 Lansoprazole 30 Mg Araseli FEEDTUBE 30 mg DAILY TAYLOR Administration Levetiracetam 1,500 mg 09/28/20 10:00 10/22/20 09:08 Levetiracetam 500 Mg/5 Ml Oral Liqd PO 1,500 mg BID TAYLOR Administration Multivitamins 5 ml 09/09/20 12:00 10/22/20 09:12 Multivitamins 5 Ml Oral Liquid PO Not Given [facility] Ondansetron HCl 4 mg 09/07/20 17:55 09/19/20 04:00 Ondansetron 4 Mg/2 Ml Inj IV 4 mg Q8H PRN Administration Nausea And Vomiting Senna/Docusate Sodium 2 tab 09/20/20 11:00 Sennosides/Docusate Sodium 8.6/50 Mg Tab PO BID PRN Laxative Effect Simple Syrup 15 ml 09/09/20 09:40 10/19/20 22:12 Simple Syrup 15 Ml FEEDTUBE 15 ml PRN PRN Administration Hypoglycemia Simple Syrup 30 ml 09/09/20 09:40 10/20/20 06:41 Simple Syrup 15 Ml FEEDTUBE 30 ml PRN PRN Administration Hypoglycemia Sodium Bicarbonate 325 mg 09/09/20 09:40 10/21/20 08:06 Sodium Bicarbonate 325 Mg Tab FEEDTUBE 325 mg PRN PRN Administration For Clogged Feeding Tube Sodium Chloride 10 ml 09/07/20 22:00 10/22/20 09:13 Sodium Chloride 0.9% 10 Ml Flush Syringe IV 10 ml BID TAYLOR Administration Sodium Chloride 10 ml 09/07/20 17:55 Sodium Chloride 0.9% 10 Ml Flush Syringe IV PRN PRN LINE FLUSH Valproic Acid 1,000 mg 09/28/20 10:00 10/22/20 09:11 Valproic Acid 250 Mg/5 Ml Oral Liqd FEEDTUBE 1,000 mg BID TAYLOR Administration
[2020-10-23] MEDS: INSULIN LISPRO 100 UNIT/ML SUB-Q SCH ×4 (00:40→18:40)
[2020-10-23] MEDS: hydrALAZINE 25 MG TAB PO SCH ×3 (06:08→23:22)
--- NOTE | 2020-10-23 10:19 | Discharge Summary ---
Providers - Providers Date of Admission: 09/07/20 17:07 Attending physician: MILTON HAGER MD 09/07/20 13:08 Consult to Dietitian/Nutrition [CONS] Routine Physician Instructions: Reason For Exam: Reason for Consult: Evaluate nutritional intake Consult to Physician [CONS] Urgent Comment: Consulting Provider: WHITLEY ROSARIO Physician Instructions: Reason For Exam: resp failure, ? covid 09/07/20 21:33 Consult to Physician [CONS] Routine Comment: Consulting Provider: LOI GARCIA Physician Instructions: Reason For Exam: Elevated liver enzymes 09/08/20 13:12 Consult to Physician [CONS] ONCE Comment: Consulting Provider: FEI MURRAY Physician Instructions: Reason For Exam: acute renal failure, hyperkalemia 09/08/20 13:31 Consult to Physician [CONS] Stat Comment: Consulting Provider: ALBERTO PEARCE Physician Instructions: Reason For Exam: vascath placement 09/09/20 09:28 Consult to Dietitian/Nutrition [CONS] Routine Physician Instructions: Reason For Exam: Reason for Consult: Write/Manage Tube Feeding 09/12/20 09:12 Consult to Physician [CONS] Urgent Comment: Consulting Provider: ARIANA AGUIRRE Physician Instructions: I have spoken to this physician Reason For Exam: Concern for Anoxic Brain Injury 09/14/20 09:49 Consult to Physician [CONS] Stat Comment: Consulting Provider: AWA JETT Physician Instructions: Reason For Exam: Mannitol or [place] Holes for Cerebral Edema/Anoxic 09/20/20 08:22 Consult to Physician [CONS] Routine Comment: Consulting Provider: JUANITA FONTAINE Physician Instructions: I have spoken with physician Reason For Exam: Trach and Peg 09/21/20 03:58 Consult to Wound/ET Nurse [CONS] Stat Reason For Exam: wound eval 10/04/20 17:03 Consult to Physician [CONS] Routine Comment: Consulting Provider: WHITLEY ROSARIO Physician Instructions: Reason For Exam: Sepsis 10/12/20 10:02 Consult to Physician [CONS] Routine Comment: Consulting Provider: ANTONY GUERRERO Physician Instructions: Reason For Exam: Sepsis 10/17/20 12:30 Consult to Physician [CONS] Routine Comment: Consulting Provider: ALYSE HARRY Physician Instructions: Reason For Exam: s/p OOH cardiac arrest, anoxic brain injury 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 GENERAL: The patient appears normally developed, but unresponsive to verbal or tactile stimuli vital signs as documented. HEAD: No signs of head trauma. EYES: Has eyes closed pupils equal reactive EARS: Unable to exam MOUTH: Oropharynx is normal. NECK: Trach aerosol trach CHEST: Chest with diminished breath sounds bilaterally. No wheezes, rales, or rhonchi. CARDIAC: Regular rate and rhythm. S1 and S2, without murmurs, gallops, or rubs. VASCULAR: +1 pitting edema edema. Peripheral pulses normal and equal in all extremities. ABDOMEN: PEG site intact soft, non tender and non distended. No rebound or guarding, and no masses palpated. Bowel Sounds normal. MUSCULOSKELETAL: Good range of motion of all major joints. Extremities without clubbing, cyanosis. With dependent pitting edema NEUROLOGIC EXAM: Profound encephalopathy not following any commands. PSYCHIATRIC: Unable to examine SKIN: detail exam as documented in skin assessment - Constitutional Vitals: Temp Pulse Resp BP Pulse Ox 96.6 F L 67 16 131/61 88 10/23/20 08:03 10/23/20 08:03 10/23/20 08:03 10/23/20 08:03 10/23/20 08:03 Plan Activity: advance as tolerated Diet: advance as tolerated Wound: per wound nurse instructions Follow up with: PRIMARY CAREMD [Primary Care Provider] - 3-5 Days
--- NOTE | 2020-10-23 10:34 | Progress Note ---
Assessment and Plan Assessment and plan: 65-year-old male brought into the emergency room today by EMS for cardiopulmonary arrest. Patient was said to be awaiting a Covid test when he was said to have passed out. CPR was started and also patient was defibrillated once. CPR was continued on the field by EMS and patient had a spontaneous retur n of circulation. Upon arrival in the emergency room patient had been receiving bag valve mask ventilation through a [place] airway. He was tachycardic and was subsequently intubated in the emergency room. Most of the history was obtained from the ER staff as patient is already intubated. Work-up in the emergency room today chest x-ray reveals:Bilateral airspace disease which could be related to alveolar edema or infection. CT scan of the head was unremarkable. Patient could not had a CT angiogram because of his size. Patient is being admitted for cardiopulmonary arrest and also possible Covid pneumonia. S/p cardiopulmonary arrest Toxic metabolic encephalopathy +/-anoxic injury UREMIC Acute hypoxic respiratory failure RYAN WITH CKD SECONDARY TO ATN Seizure disorder Hyperkalemia COVID-19 pneumonia Sepsis Transaminitis Morbid obesity. 09/15/2020. MRI brain for further evaluation. Continue AEDs of valproic acid and Keppra. Continue hemodialysis per nephrology recommendations. Overall prognosis remains guarded and poor. 09/16/2020. ID recommends continue to monitor patient off of antibiotics. Fever most likely of central etiology. Patient with questionable seizures versus myoclonus from anoxic brain injury. Patient unable to undergo MRI due to body habitus. Continue AEDs per neurology recommendations. Inflammatory markers elevated. Patient was recently hospitalized for COVID-19 pneumonia at the OR prior to being hospitalized here. Patient not a candidate for remdesivir due to hepatic and renal failure. Viral hepatitis panel negative. Overall prognosis extremely poor. 09/17/2020. Fevers have resolved over the past 48 hours. Continue to monitor off antibiotics per ID recommendations. Patient with questionable seizures versus myoclonus from anoxic brain injury. Patient unable to undergo MRI due to body habitus. EEG is nonspecific but given CT of head findings consistent with anoxic encephalopathy, brain injury. Continue AEDs per neurology recommendations. Inflammatory markers elevated. Patient was recently hospitalized for COVID-19 pneumonia at the OR prior to being hospitalized here. Patient not a candidate for remdesivir due to hepatic and renal failure. Viral hepatitis panel negative. Patient is s/p emergent HD on Friday (hyperK) and Friday - 09/08. Patient also S/p HD 09/15. Continue hemodialysis per nephrology recommendations. Patient currently on AC/PRVC mode ventilation with rate of 30, tidal volume 475, FiO2 30% and PEEP of 6. As stated in neuro note, overall prognosis is very poor. 09/18/2020. Fevers have resolved over the past 72 hours. Continue to monitor off antibiotics per ID recommendations. Leukocytosis persistent for the past 4 days. Patient with questionable seizures/myoclonus from anoxic brain injury. Patient unable to undergo MRI due to body habitus. EEG is nonspecific but given CT of head findings consistent with anoxic encephalopathy, brain injury. Continue AEDs per neurology recommendations. Inflammatory markers elevated. Patient was recently hospitalized for COVID-19 pneumonia at the OR prior to being hospitalized here. Patient not a candidate for remdesivir due to hepatic and renal failure. Viral hepatitis panel negative. Patient currently on AC/PRVC mode ventilation with rate of 30, tidal volume 475, FiO2 30% and PEEP of 6. Overall prognosis remains guarded/poor. 07/19/2021 Fevers have resolved over the past 4 days. Continue to monitor off antibiotics per ID recommendations. Leukocytosis persistent for the past 4 days. Patient with questionable seizures/myoclonus from anoxic brain injury. Patient unable to undergo MRI due to body habitus. EEG is nonspecific but given CT of head findings consistent with anoxic encephalopathy, brain injury. Continue AEDs per neurology recommendations. Inflammatory markers elevated. Patient was recently hospitalized for COVID-19 pneumonia at the OR prior to being hospitalized here. Patient not a candidate for remdesivir due to hepatic and renal failure. Viral hepatitis panel negative. Patient currently on AC/PRVC mode ventilation with rate of 30, tidal volume 475, FiO2 30% and PEEP of 6. Overall prognosis remains guarded/poor. 09/20/2020 -Surgery consulted for PEG and trach, will continue to follow. 09/21/2020; patient will have PEG and trach by Dr. hayes today. Prognosis is poor. Continue with current management. Supervisor Air Conditioning Installer is following for vent management. 09/22/2020; patient had PEG and trach yesterday. 09/23/2020; continue PEG Tube Feeding. 07/24/2021; continue PEG tube feeding, patient is on Keppra, lorazepam and phenytoin per neurology recommendation. Patient is on hemodialysis and ne phrology is following. Management of mechanical ventilation for CCM. 09/25/2020. Continue PEG tube feeding, patient is on Keppra, lorazepam and phenytoin per neurology recommendation. Patient is on hemodialysis and nephrology is following. Management of mechanical ventilation for CCM. Continue PSV/CPAP 12/6. Continue tracheostomy care, secretion control and airway management. 09/26/2020. Patient has tolerated PSV for approximately 48 hours. I discussed with pulmonary possibility of T-piece today. Continue tracheostomy care, secretion control and airway management. If patient tolerates T-piece trials, patient will be transferred to the floor. Continue AEDs of Keppra and phenytoin as well as Ativan as needed per neurology recommendations. Continue hemodialysis per nephrology. Continue TF with aspiration precautions. 09/27/2020. Patient continues to tolerate PSV /6 at 30% FiO2. T-piece trials per pulmonary. Continue tracheostomy care, secretion control and airway manage ment. Continue AEDs of Keppra and phenytoin as well as Ativan as needed per neurology recommendations. Continue hemodialysis per nephrology. Continue TF with aspiration precautions. 09/28/2020. Patient for T-piece trials per pulmonary. Continue hemodialysis per nephrology. Continue tracheostomy care, secretion control and airway management. Continue AEDs of Keppra and phenytoin as well as Ativan as needed per neurology recommendations. Continue TF with aspiration precautions. 09/29/2020, continue T-piece trials per pulmonary. Continue hemodialysis per nephrology. Continue strict I/O's and labs daily. Monitor for renal recovery. 09/30/2020. Continue T-piece trials per pulmonary recommendations. Continue tracheostomy care, secretion control and airway management. Continue hemodialys is per nephrology. Tight glycemic control. Continue TF with aspiration precautions. 10/01/2020. Patient with T-piece trials and tolerating. Wean to trach collar per pulmonary. Continue tracheostomy care, secretion control and airway management. Continue hemodialysis per nephrology. Tight glycemic control. Continue TF with aspiration precautions. Case management consultation for placement 10/02/20. Continue T-piece trials per pulmonary recommendations. Continue tracheostomy care, secretion control and airway management. Continue hemodialysis per nephrology. Tight glycemic control. Continue TF with aspiration precautions. 10/03/2020. Continue T-piece trials per pulmonology. Continue tracheostomy care, secretion control and airway management. Continue modalities per nephrology. Discharge planning underway. Needs placement to SNF versus hospice. 10/04/2020. Patient remained febrile with temperature 101 F. Ordered blood culture, chest x-ray, urinalysis. Plan to start antibiotics after blood cultures been obtained. Patient remains hemodynamically stable. Plan to disc harge to SNF versus inpatient hospice on the way. 10/05/2020. Started on antibiotics yesterday. Awaiting blood culture. He developed atrial fibrillation with RVR and was placed on amiodaron see awaiting placement. E drip with subsequent conversion to SR. Now on amiodarone PO. Discussed with patients - she would like him to go inpatient hospice or a exterminator care facility. As per CM, OR not approving LTC placement at this time. As is still undecided about hospice, inpatient hospice is not accepting h im at this time. has placed a referral to a SNF with inpatient dialysis. Awaiting response from the SNF. 10/06/2020. Hb drop noted. Not on therapeutic anticoagulation [atrial fi brillation] due to duration of atrial fibrillation [lasted less than 2 hours] and also drop in hemoglobin. Continue to monitor hemoglobin. Repeat labs ordered today. Vitals stable. Discussed with patient's yesterday 10/07. HR is controlled. Pending placement. As per CM notes, patient denied acceptance at a [facility] as he has VA insurance. Will discuss with CM to know other options are available. 10/08. Vitals stable. Will discuss discharge plan with spouse today as it looks like only option left is inpatient hospice. 10/09. Vitals stable. Will discuss discharge plan with spouse today as it looks like only option left is inpatient hospice 10/10. Discussed with patient spouse. Patient spouse asking to see patient in the hospital. plant culture manager on board. Patient has not had hemodialysis since 10/05. Creatinine stable at 4.6. Nephrology on board 10/11. DC planning underway. Patient spouse to see patient in hospital today. Vitals remained stable. Creatinine stable as well. Increase Lantus to 36 units daily. 10/12. Patient started having fever yesterday-temp 102 Fahrenheit. Stat blood cultures were drawn today, urinalysis, urine culture, chest x-ray, procalcitonin ordered. Start on empirical antibiotics for possible hospital acquired pneumonia. ID consulted. H&H shows hemoglobin 4.6 patient will receive 2 units PRBCs.. Check H&H after admission. Check stool guaiac. 10/13. Patient with new sepsis. Follow-up blood, sputum and urine cultures. Continue empiric antibiotics of cefepime and vancomycin. Chest x-ray appears to be unchanged. Urinalysis revealed pyuria. H&H is stabilized from PRBCs. Continue to follow H&H 10/14. Urine culture reveals yeast. Blood cultures thus far negative. Continue empiric antibiotics of cefepime and vancomycin per ID recommendations. Nephrology had long discussion regarding initiation of hemodialysis. Assistant Professor Of Mathematics conveyed to the spouse Yoko yesterday that prognosis is overall not good and his mortality risk is very high. Nephrology to potentially initiate hemodialysis today. I had a follow-up discussion with the spouse Yoko and reiterated poor prognosis. All questions answered. 10/15. Continue empiric antibiotics of cefepime and vancomycin per ID recommendations. Prognosis remains poor. Initiation of hemodialysis per nephrology recommendations. 10/16. PEG tube currently not flushing per nursing. GI consultation for PEG tube dysfunction. Repeat blood cultures have been negative x72 hours. Continue IV antibiotics per ID recommendations. Patient with Acute kidney injury currently nonoliguric likely felt to be due to acute tubular necrosis which has been felt to be multifactorial. Nephrology reports no urgent or emergent indication for renal replacement therapy and that the wants to proceed with renal replacement therapy. Nephrology informed her that patient is high risk for any adverse outcome including mortality risk during dialysis. Overall poor prog nosis. 10/17/2020; patient is on PEG tube feeding and functional. Repeat blood cultures were negative. Patient does not have any fever overnight. Patient finished 5 days of IV cefepime and vancomycin yesterday. Acute renal failure followed by nephrology and said patient not a candidate for ADAPTIVE PHYSICAL EDUCATOR. And he is a poor candidate for dialysis. Will follow with nephrology for further recommendation. Overall prognosis is very poor. I order CT head to assess if brain edema is resolved, and to assess for anoxic brain injury. I put a consult for neurology to assess his prognosis and discussed with the family from neurology point of view. 10/18/2020; patient was evaluated by neurology and recommend MRI and EEG, MRI was not done because patient does not fit to the MRI table. CT head is ordered ye sterday. Evaluated by ID and recommend to monitor off antibiotics. Nephrology is following. 10/19/2020 patient was evaluated by neurology and recommend MRI and EEG, MRI was not done because patient does not fit to the MRI table. CT head is ordered yesterday. Evaluated by ID and recommend to monitor off antibiotics. Nephrology is following. 10/20/2020; CT head was done and showed significant decrease in brain swelling. Nephrology is following. Pending SNF placement. 10/21/2020; no change in his brain function. Nephrology is following and said he is a poor candidate for dialysis. Ending SNF placement. Prognosis poor 10/22/2020;no change in his brain function. Nephrology is following and said he is a poor candidate for dialysis. Pending SNF placement. Prognosis poor. 10/23: Patient is awaiting placement to hospice he remains nonverbal to me this morning. No response to tactile stimuli. Spontaneous respiration. No adverse event reported overnight. Prognosis remains poor. Awaiting hospice based on documentation from case management. DISCUSS WITH SPOUSE, SHE WANTED REPEAT EEG. She wants to know if HD can be done. We will have nail making machine tender- give her a call. History Interval history: Patient seen and examined, remains unresponsive, no new issues Hospitalist Physical - Physical exam Narrative exam: VITAL SIGNS: Reviewed. GENERAL: The patient appears normally developed, but unresponsive to verbal or tactile stimuli vital signs as documented. HEAD: No signs of head trauma. EYES: Has eyes closed pupils equal reactive EARS: Unable to exam MOUTH: Oropharynx is normal. NECK: Trach aerosol trach CHEST: Chest with diminished breath sounds bilaterally. No wheezes, rales, or rhonchi. CARDIAC: Regular rate and rhythm. S1 and S2, without murmurs, gallops, or rubs. VASCULAR: +1 pitting edema edema. Peripheral pulses normal and equal in all extremities. ABDOMEN: PEG site intact soft, non tender and non distended. No rebound or guarding, and no masses palpated. Bowel Sounds normal. MUSCULOSKELETAL: Good range of motion of all major joints. Extremities without clubbing, cyanosis. With dependent pitting edema NEUROLOGIC EXAM: Profound encephalopathy not following any commands. PSYCHIATRIC: Unable to examine SKIN: detail exam as documented in skin assessment - Constitutional Vitals: Temp Pulse Resp BP Pulse Ox 96.6 F L 67 16 131/61 88 10/23/20 08:03 10/23/20 08:03 10/23/20 08:03 10/23/20 08:03 10/23/20 08:03 General appearance: Present: other (On mechanical ventilation) HEART Score - HEART Score Troponin: Troponin T 0.076 ng/mL (0.00-0.029) H 09/07/20 14:00 Results - Labs CBC & Chem 7: 10/16/20 07:13 10/22/20 14:39 Labs: Laboratory Last Values WBC 7.8 K/mm3 (4.5-11.0) 10/16/20 07:13 RBC 2.87 M/mm3 (3.65-5.03) L 10/16/20 07:13 Hgb 8.4 gm/dl (11.8-15.2) L 10/16/20 07:13 Hct 25.3 % (35.5-45.6) L 10/16/20 07:13 MCV 88 fl (84-94) 10/16/20 07:13 MCH 29 pg (28-32) 10/16/20 07:13 MCHC 33 % (32-34) 10/16/20 07:13 RDW 18.7 % (13.2-15.2) H 10/16/20 07:13 Plt Count 222 K/mm3 (140-440) 10/16/20 07:13 Lymph % (Auto) 21.2 % (13.4-35.0) 10/16/20 07:13 [place] % (Auto) 14.4 % (0.0-7.3) H 10/16/20 07:13 Eos % (Auto) 1.9 % (0.0-4.3) 10/16/20 07:13 Baso % (Auto) 0.3 % (0.0-1.8) 10/16/20 07:13 Lymph # (Auto) 1.6 K/mm3 (1.2-5.4) 10/16/20 07:13 [place] # (Auto) 1.1 K/mm3 (0.0-0.8) H 10/16/20 07:13 Eos # (Auto) 0.2 K/mm3 (0.0-0.4) 10/16/20 07:13 Baso # (Auto) 0.0 K/mm3 (0.0-0.1) 10/16/20 07:13 Add Manual Diff Complete 10/12/20 08:36 Total Counted 100 10/12/20 08:36 Seg Neutrophils % 62.2 % (40.0-70.0) 10/16/20 07:13 Seg Neuts % (Manual) 75.0 % (40.0-70.0) H 10/12/20 08:36 Band Neutrophils % 8.0 % 09/30/20 06:57 Lymphocytes % (Manual) 17.0 % (13.4-35.0) 10/12/20 08:36 Monocytes % (Manual) 5.0 % (0.0-7.3) 10/12/20 08:36 Eosinophils % (Manual) 2.0 % (0.0-4.3) 10/12/20 08:36 Basophils % (Manual) 1.0 % (0.0-1.8) 10/12/20 08:36 Metamyelocytes % 2.0 % 09/08/20 Unknown Promyelocytes % 0 % 10/04/20 10:32 Nucleated RBC % Not Reportable 10/12/20 08:36 Seg Neutrophils # 4.8 K/mm3 (1.8-7.7) 10/16/20 07:13 Seg Neutrophils # Man 10.6 K/mm3 (1.8-7.7) H 10/12/20 08:36 Band Neutrophils # 0.0 K/mm3 10/12/20 08:36 Lymphocytes # (Manual) 2.4 K/mm3 (1.2-5.4) 10/12/20 08:36 Abs React Lymphs (Man) 0.0 K/mm3 10/12/20 08:36 Monocytes # (Manual) 0.7 K/mm3 (0.0-0.8) 10/12/20 08:36 Eosinophils # (Manual) 0.3 K/mm3 (0.0-0.4) 10/12/20 08:36 Basophils # (Manual) 0.1 K/mm3 (0.0-0.1) 10/12/20 08:36 Metamyelocytes # 0.0 K/mm3 10/12/20 08:36 Myelocytes # 0.0 K/mm3 10/12/20 08:36 Promyelocytes # 0.0 K/mm3 10/12/20 08:36 Blast Cells # 0.0 K/mm3 10/12/20 08:36 WBC Morphology Not Reportable 10/12/20 08:36 Hypersegmented Neuts Not Reportable 10/12/20 08:36 Hyposegmented Neuts Not Reportable 10/12/20 08:36 Hypogranular Neuts Not Reportable 10/12/20 08:36 Smudge Cells Not Reportable 10/12/20 08:36 Toxic Granulation Not Reportable 10/12/20 08:36 Toxic Vacuolation Not Reportable 10/12/20 08:36 Dohle Bodies Not Reportable 10/12/20 08:36 Pelger-Huet Anomaly Not Reportable 10/12/20 08:36 Justus Rods Not Reportable 10/12/20 08:36 Platelet Estimate Consistent w auto 10/12/20 08:36 Clumped Platelets Not Reportable 10/12/20 08:36 Plt Clumps, EDTA Not Reportable 10/12/20 08:36 Large Platelets Not Reportable 10/12/20 08:36 Giant Platelets Not Reportable 10/12/20 08:36 Platelet Satelliting Not Reportable 10/12/20 08:36 Plt Morphology Comment Not Reportable 10/12/20 08:36 RBC Morphology Not Reportable 10/12/20 08:36 Dimorphic RBCs Not Reportable 10/12/20 08:36 Polychromasia Not Reportable 10/12/20 08:36 Hypochromasia 1+ 10/12/20 08:36 Poikilocytosis Not Reportable 10/12/20 08:36 Anisocytosis Not Reportable 10/12/20 08:36 Microcytosis Not Reportable 10/12/20 08:36 Macrocytosis Not Reportable 10/12/20 08:36 Spherocytes Not Reportable 10/12/20 08:36 Pappenheimer Bodies Not Reportable 10/12/20 08:36 Sickle Cells Not Reportable 10/12/20 08:36 Target Cells Not Reportable 10/12/20 08:36 Tear Drop Cells Not Reportable 10/12/20 08:36 Ovalocytes Not Reportable 10/12/20 08:36 Helmet Cells Not Reportable 10/12/20 08:36 [place] Bodies Not Reportable 10/12/20 08:36 [place] Rings Not Reportable 10/12/20 08:36 Manjit Cells Not Reportable 10/12/20 08:36 Bite Cells Not Reportable 10/12/20 08:36 Crenated Cell Not Reportable 10/12/20 08:36 Elliptocytes Not Reportable 10/12/20 08:36 Acanthocytes (Spur) Not Reportable 10/12/20 08:36 Rouleaux Not Reportable 10/12/20 08:36 Hemoglobin C Crystals Not Reportable 10/12/20 08:36 Schistocytes Not Reportable 10/12/20 08:36 Malaria parasites Not Reportable 10/12/20 08:36 [place] Bodies Not Reportable 10/12/20 08:36 Hem Pathologist Commnt No 10/12/20 08:36 PT 16.1 Sec. (12.2-14.9) H 09/12/20 04:00 INR 1.31 (0.87-1.13) H 09/12/20 04:00 APTT 32.4 Sec. (24.2-36.6) 09/09/20 10:00 D-Dimer 8315.85 ng/mlDDU (0-234) H 09/07/20 14:00 ABG pH 7.468 (7.320-7.450) H 10/02/20 10:16 POC ABG pCO2 37.1 mmHg (32.0-48.0) 10/02/20 10:16 ABG pCO2 33.4 mm Hg 09/11/20 05:40 POC ABG pO2 72.9 mmHg (83-108) L 10/02/20 10:16 ABG pO2 112.1 mm Hg (80.0-90.0) H 09/11/20 05:40 POC ABG HCO3 26.3 10/02/20 10:16 ABG HCO3 28.1 mmol/L (20.0-26.0) H 09/11/20 05:40 ABG O2 Saturation 98.4 % (95.0-99.0) 09/11/20 05:40 ABG O2 Content 11.6 (0.0-44) 09/11/20 05:40 POC ABG Base Excess 2.6 10/02/20 10:16 ABG Base Excess 5.4 mmol/L (-2.0-3.0) H 09/11/20 05:40 ABG Hemoglobin 10.1 (12.0-17.5) L 10/02/20 10:16 ABG Oxyhemoglobin 93.1 (94-98) L 10/02/20 10:16 ABG Carboxyhemoglobin 1.2 % (0.0-5.0) 09/11/20 05:40 ABG Methemoglobin 0.3 (0.0-1.5) 10/02/20 10:16 ABG Sodium 138.5 mmol/L (136.0-145.0) 10/02/20 10:16 ABG Potassium 3.9 mmol/L (3.40-4.50) 10/02/20 10:16 ABG Chloride 108.0 mmol/L (98-107) H 10/02/20 10:16 ABG Glucose 289 mg/dL (65-95) H 10/02/20 10:16 Oxyhemoglobin 96.8 % (95.0-99.0) 09/11/20 05:40 Carboxyhemoglobin 0.8 (0.5-1.5) 10/02/20 10:16 FiO2 35 10/02/20 10:16 Sodium 135 mmol/L (137-145) L 10/22/20 14:39 Sodium 137 mmol/L (137-145) 10/22/20 14:39 Potassium 4.6 mmol/L (3.6-5.0) 10/22/20 14:39 Potassium 4.6 mmol/L (3.6-5.0) 10/22/20 14:39 Chloride 97.7 mmol/L (98-107) L 10/22/20 14:39 Chloride 98.9 mmol/L (98-107) 10/22/20 14:39 Carbon Dioxide 32 mmol/L (22-30) H 10/22/20 14:39 Carbon Dioxide 33 mmol/L (22-30) H 10/22/20 14:39 Anion Gap 10 mmol/L 10/22/20 14:39 Anion Gap 10 mmol/L 10/22/20 14:39 BUN 114 mg/dL (9-20) H 10/22/20 14:39 BUN 115 mg/dL (9-20) H 10/22/20 14:39 Creatinine 4.4 mg/dL (0.8-1.3) H 10/22/20 14:39 Creatinine 4.4 mg/dL (0.8-1.3) H 10/22/20 14:39 Estimated GFR 16 ml/min 10/22/20 14:39 Estimated GFR 16 ml/min 10/22/20 14:39 BUN/Creatinine Ratio 26 % 10/22/20 14:39 BUN/Creatinine Ratio 26 % 10/22/20 14:39 Glucose 199 mg/dL (75-100) H 10/22/20 14:39 Glucose 201 mg/dL (75-100) H 10/22/20 14:39 POC Glucose 167 mg/dL (70-105) H 10/23/20 08:49 Osmolality 353 Mosm/kg 10/13/20 09:29 Lactic Acid 2.90 mmol/L (0.7-2.0) H* 09/17/20 13:52 Uric Acid 8.6 mg/dL (3.5-7.6) H 10/13/20 09:29 Calcium 9.9 mg/dL (8.4-10.2) 10/22/20 14:39 Calcium 9.9 mg/dL (8.4-10.2) 10/22/20 14:39 Phosphorus 8.00 mg/dL (2.5-4.5) H 09/08/20 12:02 Magnesium 1.80 mg/dL (1.7-2.3) 09/08/20 12:02 Ferritin > 2000.0 ng/mL (30.0-300.0) H 09/07/20 14:00 Total Bilirubin 0.30 mg/dL (0.1-1.2) 10/06/20 10:12 Direct Bilirubin 0.5 mg/dL (0-0.2) H 09/08/20 05:00 Indirect Bilirubin 0.5 mg/dL 09/08/20 05:00 AST 52 units/L (5-40) H 10/06/20 10:12 ALT 28 units/L (7-56) 10/06/20 10:12 Alkaline Phosphatase 94 units/L (35-129) 10/06/20 10:12 Ammonia 50.0 umol/L (25-60) 09/07/20 14:00 Lactate Dehydrogenase 882 units/L (91-180) H 09/07/20 14:00 Total Creatine Kinase 477 units/L (55-170) H 09/07/20 14:00 Troponin T 0.076 ng/mL (0.00-0.029) H 09/07/20 14:00 C-Reactive Protein 1.10 mg/dL (0.00-1.30) 09/07/20 14:00 Total Protein 8.4 g/dL (6.3-8.2) H 10/06/20 10:12 Albumin 2.3 g/dL (3.9-5) L 10/06/20 10:12 Albumin/Globulin Ratio 0.4 % 10/06/20 10:12 Triglycerides 220 mg/dL (2-149) H 09/12/20 Unknown Procalcitonin 2.03 ng/mL (<0.15) 10/12/20 08:19 TSH 2.290 mlU/mL (0.270-4.200) 09/07/20 14:00 Arterial Blood Glucose 289 mg/dL (65-95) H 10/02/20 10:16 Arterial Blood Ionized Calcium 5.2 mg/dL (4.6-5.3) 10/02/20 10:16 Urine Color Yellow (Yellow) 10/13/20 14:45 Urine Turbidity Slightly-cloudy (Clear) 10/13/20 14:45 Urine pH 5.0 (5.0-7.0) 10/13/20 14:45 Ur Specific [place] 1.014 (1.003-1.030) 10/13/20 14:45 Urine Protein 100 mg/dl mg/dL (Negative) 10/13/20 14:45 Urine Glucose (UA) 50 mg/dL (Negative) 10/13/20 14:45 Urine Ketones Neg mg/dL (Negative) 10/13/20 14:45 Urine Blood Mod (Negative) 10/13/20 14:45 Urine Nitrite Neg (Negative) 10/13/20 14:45 Urine Bilirubin Neg (Negative) 10/13/20 14:45 Urine Urobilinogen < 2.0 mg/dL (<2.0) 10/13/20 14:45 Ur Leukocyte Esterase Neg (Negative) 10/13/20 14:45 Urine WBC (Auto) 6.0 /HPF (0.0-6.0) 10/13/20 14:45 Urine RBC (Auto) 29.0 /HPF (0.0-6.0) 10/13/20 14:45 U Epithel Cells (Auto) 1.0 /HPF (0-13.0) 10/13/20 14:45 Urine Bacteria (Auto) 2+ /HPF (Negative) 10/13/20 14:45 Urine WBC Clumps 3+ /HPF 10/12/20 10:25 Hyaline Casts 1 /LPF 10/05/20 09:15 Urine Mucus Few /HPF 10/13/20 14:45 Urine Yeast (Budding) 3+ /HPF 10/13/20 14:45 Urine Sperm Few /HPF (SPECIAL ASSEMBLIES SUPERVISOR) 10/13/20 14:45 Urine Creatinine < 4.2 mg/dL (0.1-20.0) 10/13/20 14:45 Urine Sodium 10 mmol/L 10/13/20 14:45 Random Vancomycin 12.4 ug/mL (0-40.0) 10/15/20 06:52 Salicylates < 0.3 mg/dL (2.8-20.0) L 09/07/20 14:00 Acetaminophen 5.0 ug/mL (10.0-30.0) L 09/07/20 14:00 Valproic Acid 58.9 ug/mL (50-100) 10/04/20 04:55 Plasma/Serum Alcohol < 0.01 % (0-0.07) 09/07/20 14:00 Coronavirus (PCR) Negative (Negative) 10/19/20 09:20 Hepatitis A IgM Ab Non-reactive (NonReactive) 09/07/20 14:00 Hep Bs Antigen Non-reactive (Negative) 09/07/20 14:00 Hep B Core IgM Ab Non-reactive (NonReactive) 09/07/20 14:00 Hepatitis C Antibody Non-reactive (NonReactive) 09/07/20 14:00 HIV 1&2 Antibody Rapid Non react (Non React) 09/07/20 14:34 HIV P24 Antigen Non react (Non React) 09/07/20 14:34 Blood Type O POSITIVE 10/12/20 11:04 Antibody Screen Negative 10/12/20 11:04 Crossmatch See Detail 10/12/20 11:04 Mae/IV: Voiding Method Condom Catheter IV Catheter Type [Right Triple Lumen Cath Femoral] IV Catheter Type [Left Peripheral IV Antecubital] IV Catheter Type [Left Hand] Peripheral IV IV Catheter Type [Right Peripheral IV Antecubital] Active Medications - Current Medications Current Medications: Generic Name Dose Route Start Last Admin Trade Name Freq PRN Reason Stop Dose Admin Acetaminophen 650 mg 10/02/20 09:00 10/20/20 23:32 Acetaminophen 325 Mg/10.15 Ml Oral Liqd Unit Dose PO 650 mg Q4HR PRN Administration Non Cardiac Pain or Temp>100.5 Amiodarone HCl 200 mg 10/05/20 11:00 10/22/20 22:24 Amiodarone 200 Mg Tab PO 200 mg BID TAYLOR Administration Lipase/Protease/Amylase 1 each 09/09/20 09:40 10/21/20 08:06 Lipase 10,500/Protease 25,000/Amylase 43,750 (Units) Dr Armenta FEEDTUBE 1 each PRN PRN Administration For Clogged Feeding Tube Hydralazine HCl 50 mg 09/23/20 14:00 10/23/20 06:08 Hydralazine 25 Mg Tab PO 50 mg Q8HR TAYLOR Administration Sodium Chloride 1,000 mls @ 75 mls/hr 10/18/20 13:00 Nacl 0.9% 1000 Ml IV DIRECT TAYLOR Insulin Glargine 40 units 10/19/20 10:00 10/22/20 09:12 Insulin Glargine 100 Units/Ml SUB-Q 40 units DAILY TAYLOR Administration Insulin Human Lispro 0 unit 09/12/20 12:00 10/23/20 06:51 Insulin Lispro 100 Unit/Ml SUB-Q 3 unit Q6HR TAYLOR Administration Protocol Lansoprazole 30 mg 10/13/20 10:00 10/22/20 09:12 Lansoprazole 30 Mg Araseli FEEDTUBE 30 mg DAILY TAYLOR Administration Levetiracetam 1,500 mg 09/28/20 10:00 10/22/20 22:24 Levetiracetam 500 Mg/5 Ml Oral Liqd PO 1,500 mg BID TAYLOR Administration Multivitamins 5 ml 09/09/20 12:00 10/22/20 09:12 Multivitamins 5 Ml Oral Liquid PO Not Given QDAY TAYLOR Ondansetron HCl 4 mg 09/07/20 17:55 09/19/20 04:00 Ondansetron 4 Mg/2 Ml Inj IV 4 mg Q8H PRN Administration Nausea And Vomiting Senna/Docusate Sodium 2 tab 09/20/20 11:00 Sennosides/Docusate Sodium 8.6/50 Mg Tab PO BID PRN Laxative Effect Simple Syrup 15 ml 09/09/20 09:40 10/19/20 22:12 Simple Syrup 15 Ml FEEDTUBE 15 ml PRN PRN Administration Hypoglycemia Simple Syrup 30 ml 09/09/20 09:40 10/20/20 06:41 Simple Syrup 15 Ml FEEDTUBE 30 ml PRN PRN Administration Hypoglycemia Sodium Bicarbonate 325 mg 09/09/20 09:40 10/21/20 08:06 Sodium Bicarbonate 325 Mg Tab FEEDTUBE 325 mg PRN PRN Administration For Clogged Feeding Tube Sodium Chloride 10 ml 09/07/20 22:00 10/22/20 22:25 Sodium Chloride 0.9% 10 Ml Flush Syringe IV 10 ml BID TAYLOR Administration Sodium Chloride 10 ml 09/07/20 17:55 Sodium Chloride 0.9% 10 Ml Flush Syringe IV PRN PRN LINE FLUSH Valproic Acid 1,000 mg 09/28/20 10:00 10/22/20 22:24 Valproic Acid 250 Mg/5 Ml Oral Liqd FEEDTUBE 1,000 mg BID TAYLOR Administration Nutrition/Malnutrition Assess - Dietary Evaluation Nutrition/Malnutrition Findings: Nutrition Notes Start: 09/08/20 12:01 Freq: Status: Active Protocol: Document 10/19/20 08:51 AT (Rec: 10/19/20 08:59 AT [id number]) Co-Sign 10/19/20 08:51 CW Nutrition Notes Initial or Follow up Reassessment Current Diagnosis Acute Kidney Injury, Respiratory Failure Other Pertinent Diagnosis s/p cardiac arrest, COVID(-), Anoxic Encephalopathy, Pneu, Tubular Necrosis Current Diet Nepro 1.8 at 45 mL/hr (goal rate) Labs/Tests POC BG 244 3/10 BUN 104 Cr 4.6 Pertinent Medications Humalog Pancreaze NS at 75 mL/hr Height 6 ft Weight 98.6 kg [place] Body Weight (kg) 80.90 BMI 29.5 Weight change and time frame Weight change noted, possibly due to error. Yesterday, weight recorded at 157.1 kg Weight Status Morbidly Obese Subjective/Other Information Follow up for TF stability. Observed pt at bedside, TF running at goal rate and tolerating well per RN. Will reduce flushes for generalized edema. Percent of energy/protein needs met: 100%/59% Burn Absent Trauma Absent GI Symptoms None Difficulty In Swallowing Food Allergy No Current % PO Negligible Minimum of two criteria No Fluid Accumulation Mild (non-severe) #3 Nutrition Diagnosis Increased nutrient needs ( specify in comment below) As Evidenced by Signs and Symptoms pressure ulcer healed Diagnosis Progress(for reassessment Resolved documentation) #1 Nutrition Diagnosis Inadequate oral intake Diagnosis Progress(for reassessment Continues documentation) Is patient on ventilator? No Is Patient Ambulatory and/or Out of Bed No REE-([place]-confined to bed) 2181.756 Kcal/Kg value to use for calculation 19 Approximate Energy Requirements Using 1873 kcal/Kg Calculation Used for Recommendations Kcal/kg Additional Notes PRO needs: 119-143g (1-1.2 g/ kg AdBW 119 kg) Fluid needs: 1 mL/kcal or per MD Nutrition Intervention Change Diet Order: Continue TF Nutrition Support: Nepro 1.8 at 45 mL/hr. Flush with 120 mL q4h. Kcal 1,944 Protein (gm) 87 Fluid (mL) 785 Goal #1 Meet kcal and protein needs as best as possible via TF Anticipated Discharge Needs: Nepro 1.8 at 45 mL/hr Follow-Up By: 10/23/20 Additional Comments F/U for stable TF, edema
--- NOTE | 2020-10-23 10:41 | Progress Note ---
Assessment and Plan Impression: * Nonoliguric RYAN secondary to ATN * Severe hyperkalemia - resolved * COVID 19 PNA * s/p OOH cardiac arrest * ANOXIA * Acute hypoxic respiratory failure * Seizure activity * Anemia Plan: * Patient is s/p emergent HD - 09/08 * no emergent reason for hd today * He is a poor candidate for renal replacement therapy * Check labs daily * Strict I/O * Monitor for renal recovery * Keep MAP > 65 * Vent management per CCM * Steroids per primary team/ID * Dose medications for renal function * Avoid potential nephrotoxins * Prognosis is guarded * hospice appropriate, no plans on hd, can get second opinion if family desires Subjective Principal diagnosis: Abnormal LFTs, s/p cardiac arrest, acute kidney injury with ATN Interval history: resting in bed today Objective - Exam Narrative Exam: Deferred for PPE conservation and to prevent spread of infection - Vital Signs Vital signs: Vital Signs - 12hr 10/22/20 10/22/20 10/23/20 23:00 23:20 04:58 Temperature 98.0 F 97.7 F Pulse Rate 63 64 Pulse Rate [ 63 Left Radial] Pulse Rate [ 63 Right Radial] Respiratory 32 H 28 H Rate Blood Pressure 118/60 125/64 O2 Sat by Pulse 97 96 98 Oximetry 10/23/20 10/23/20 06:08 08:03 Temperature 96.6 F L Pulse Rate 64 67 Pulse Rate [ Left Radial] Pulse Rate [ Right Radial] Respiratory 16 Rate Blood Pressure 125/64 131/61 O2 Sat by Pulse 88 Oximetry - Lab 10/16/20 07:13 10/22/20 14:39 Most recent lab results ABG pH 7.468 (7.320-7.450) H 10/02/20 10:16 ABG pCO2 33.4 mm Hg 09/11/20 05:40 ABG pO2 112.1 mm Hg (80.0-90.0) H 09/11/20 05:40 ABG HCO3 28.1 mmol/L (20.0-26.0) H 09/11/20 05:40 ABG O2 Saturation 98.4 % (95.0-99.0) 09/11/20 05:40 Calcium 9.9 mg/dL (8.4-10.2) 10/22/20 14:39 Calcium 9.9 mg/dL (8.4-10.2) 10/22/20 14:39 Phosphorus 8.00 mg/dL (2.5-4.5) H 09/08/20 12:02 Magnesium 1.80 mg/dL (1.7-2.3) 09/08/20 12:02 Urine Creatinine < 4.2 mg/dL (0.1-20.0) 10/13/20 14:45 Urine Sodium 10 mmol/L 10/13/20 14:45 Medications & Allergies - Medications Allergies/Adverse Reactions: Allergies No Known Allergies Allergy (Verified 09/21/20 21:00) Verified with , no known drug allergies. Home Medications: Home Medications Medication Instructions Recorded Confirmed Last Taken Type Albuterol Sulfate 60 mcg IH PRN 09/11/20 09/11/20 Unknown History Cholecalciferol (Vitamin D3) 25 tab PO DAILY 09/11/20 09/11/20 Unknown History Cozaar 25 tab PO DAILY 09/11/20 09/11/20 Unknown History HumaLOG 14 unit SQ AC 09/11/20 09/11/20 Unknown History Hydralazine HCl 50 tab PO TID 09/11/20 09/11/20 Unknown History Isosorbide Dinitrate 30 mg PO DAILY 09/11/20 09/11/20 Unknown History Lantus VIAL 54 units SQ HS 09/11/20 09/11/20 Unknown History Lasix 20 tab PO DAILY 09/11/20 09/11/20 Unknown History Nifedipine 30 tab PO DAILY 09/11/20 09/11/20 Unknown History Active Medications: Generic Name Dose Route Start Last Admin Trade Name Freq PRN Reason Stop Dose Admin Acetaminophen 650 mg 10/02/20 09:00 10/20/20 23:32 Acetaminophen 325 Mg/10.15 Ml Oral Liqd Unit Dose PO 650 mg Q4HR PRN Administration Non Cardiac Pain or Temp>100.5 Amiodarone HCl 200 mg 10/05/20 11:00 10/22/20 22:24 Amiodarone 200 Mg Tab PO 200 mg BID TAYLOR Administration Lipase/Protease/Amylase 1 each 09/09/20 09:40 10/21/20 08:06 Lipase 10,500/Protease 25,000/Amylase 43,750 (Units) Dr Armenta FEEDTUBE 1 each PRN PRN Administration For Clogged Feeding Tube Hydralazine HCl 50 mg 09/23/20 14:00 10/23/20 06:08 Hydralazine 25 Mg Tab PO 50 mg Q8HR TAYLOR Administration Sodium Chloride 1,000 mls @ 75 mls/hr 10/18/20 13:00 Nacl 0.9% 1000 Ml IV DIRECT TAYLOR Insulin Glargine 40 units 10/19/20 10:00 10/22/20 09:12 Insulin Glargine 100 Units/Ml SUB-Q 40 units DAILY TAYLOR Administration Insulin Human Lispro 0 unit 09/12/20 12:00 10/23/20 06:51 Insulin Lispro 100 Unit/Ml SUB-Q 3 unit Q6HR TAYLOR Administration Protocol Lansoprazole 30 mg 10/13/20 10:00 10/22/20 09:12 Lansoprazole 30 Mg Solutab FEEDTUBE 30 mg DAILY TAYLOR Administration Levetiracetam 1,500 mg 09/28/20 10:00 10/22/20 22:24 Levetiracetam 500 Mg/5 Ml Oral Liqd PO 1,500 mg BID TAYLOR Administration Multivitamins 5 ml 09/09/20 12:00 10/22/20 09:12 Multivitamins 5 Ml Oral Liquid PO Not Given QDAY TAYLOR Ondansetron HCl 4 mg 09/07/20 17:55 09/19/20 04:00 Ondansetron 4 Mg/2 Ml Inj IV 4 mg Q8H PRN Administration Nausea And Vomiting Senna/Docusate Sodium 2 tab 09/20/20 11:00 Sennosides/Docusate Sodium 8.6/50 Mg Tab PO BID PRN Laxative Effect Simple Syrup 15 ml 09/09/20 09:40 10/19/20 22:12 Simple Syrup 15 Ml FEEDTUBE 15 ml PRN PRN Administration Hypoglycemia Simple Syrup 30 ml 09/09/20 09:40 10/20/20 06:41 Simple Syrup 15 Ml FEEDTUBE 30 ml PRN PRN Administration Hypoglycemia Sodium Bicarbonate 325 mg 09/09/20 09:40 10/21/20 08:06 Sodium Bicarbonate 325 Mg Tab FEEDTUBE 325 mg PRN PRN Administration For Clogged Feeding Tube Sodium Chloride 10 ml 09/07/20 22:00 10/22/20 22:25 Sodium Chloride 0.9% 10 Ml Flush Syringe IV 10 ml BID TAYLOR Administration Sodium Chloride 10 ml 09/07/20 17:55 Sodium Chloride 0.9% 10 Ml Flush Syringe IV PRN PRN LINE FLUSH Valproic Acid 1,000 mg 09/28/20 10:00 10/22/20 22:24 Valproic Acid 250 Mg/5 Ml Oral Liqd FEEDTUBE 1,000 mg BID TAYLOR Administration
[2020-10-23] MEDS: AMIODARONE 200 MG TAB PO SCH ×2 (12:00→23:22)
[2020-10-23] MEDS: levETIRAcetam 500 MG/5 ML ORAL LIQD PO SCH ×2 (12:02→23:19)
[2020-10-23] MEDS: VALPROIC ACID 250 MG/5 ML ORAL LIQD FEEDTUBE SCH ×2 (12:02→23:21)
[2020-10-23] MEDS: LANSOPRAZOLE 30 MG SOLUTAB FEEDTUBE SCH (12:02)
[2020-10-23] MEDS: INSULIN GLARGINE 100 UNITS/ML SUB-Q SCH (12:03)
[2020-10-23] MEDS: MULTIVITAMINS 5 ML ORAL LIQUID PO SCH (12:31)
[2020-10-23] MEDS: LIPASE 10,500/PROTEASE 25,000/AMYLASE 43,750 (UNITS) DR CAP FEEDTUBE PRN (13:59)
[2020-10-23] MEDS: SODIUM BICARBONATE 325 MG TAB FEEDTUBE PRN (13:59)
[2020-10-23 15:09] LABS: Calcium 8.2 mg/dL (8.4-10.2)
[2020-10-24 05:25] LABS: Basophils % (Auto) 0.3 % (0.0-1.8); Eosinophils # (Auto) 0.1 K/mm3 (0.0-0.4); Eosinophils % (Auto) 1.8 % (0.0-4.3); Hematocrit 23.7 % (35.5-45.6); Lymphocytes # (Auto) 1.6 K/mm3 (1.2-5.4); Mean Corpuscular HGB Conc 34 % (32-34); Mean Corpuscular Volume 87 fl (84-94); Monocytes # (Auto) 0.8 K/mm3 (0.0-0.8); Monocytes % (Auto) 10.8 % (0.0-7.3); Platelet Count 211 K/mm3 (140-440); Red Blood Count 2.73 M/mm3 (3.65-5.03); Red Cell Distribution Width 19.2 % (13.2-15.2)
[2020-10-24 05:37] LABS: Calcium 9.5 mg/dL (8.4-10.2)
[2020-10-24] MEDS: hydrALAZINE 25 MG TAB PO SCH ×3 (05:53→22:08)
[2020-10-24] MEDS: INSULIN LISPRO 100 UNIT/ML SUB-Q SCH ×4 (06:06→18:00)
[2020-10-24] MEDS: AMIODARONE 200 MG TAB PO SCH ×2 (13:07→22:08)
[2020-10-24] MEDS: MULTIVITAMINS 5 ML ORAL LIQUID PO SCH (13:07)
--- NOTE | 2020-10-24 13:08 | Discharge Summary ---
Providers - Providers Date of Admission: 09/07/20 17:07 Attending physician: MILTON HAGER MD 09/07/20 13:08 Consult to Dietitian/Nutrition [CONS] Routine Physician Instructions: Reason For Exam: Reason for Consult: Evaluate nutritional intake Consult to Physician [CONS] Urgent Comment: Consulting Provider: WHITLEY ROSARIO Physician Instructions: Reason For Exam: resp failure, ? covid 09/07/20 21:33 Consult to Physician [CONS] Routine Comment: Consulting Provider: LOI GARCIA Physician Instructions: Reason For Exam: Elevated liver enzymes 09/08/20 13:12 Consult to Physician [CONS] ONCE Comment: Consulting Provider: FEI MURRAY Physician Instructions: Reason For Exam: acute renal failure, hyperkalemia 09/08/20 13:31 Consult to Physician [CONS] Stat Comment: Consulting Provider: ALBERTO PEARCE Physician Instructions: Reason For Exam: vascath placement 09/09/20 09:28 Consult to Dietitian/Nutrition [CONS] Routine Physician Instructions: Reason For Exam: Reason for Consult: Write/Manage Tube Feeding 09/12/20 09:12 Consult to Physician [CONS] Urgent Comment: Consulting Provider: ARIANA AGUIRRE Physician Instructions: I have spoken to this physician Reason For Exam: Concern for Anoxic Brain Injury 09/14/20 09:49 Consult to Physician [CONS] Stat Comment: Consulting Provider: AWA JETT Physician Instructions: Reason For Exam: Mann[place] or [place] Holes for Cerebral Edema/Anoxic 09/20/20 08:22 Consult to Physician [CONS] Routine Comment: Consulting Provider: JUANITA HAYES Physician Instructions: I have spoken with physician Reason For Exam: Trach and Peg 09/21/20 03:58 Consult to Wound/ET Nurse [CONS] Stat Reason For Exam: wound eval 10/04/20 17:03 Consult to Physician [CONS] Routine Comment: Consulting Provider: WHITLEY ROSARIO Physician Instructions: Reason For Exam: Sepsis 10/12/20 10:02 Consult to Physician [CONS] Routine Comment: Consulting Provider: ANTONY GUERRERO Physician Instructions: Reason For Exam: Sepsis 10/17/20 12:30 Consult to Physician [CONS] Routine Comment: Consulting Provider: ALYSE HARRY Physician Instructions: Reason For Exam: s/p OOH cardiac arrest, anoxic brain injury Primary care physician: DIRECTOR BIOMEDICAL ENGINEERING Hospitalization Reason for admission: Cardiac arrest Condition: Stable Hospital course: 65-year-old male brought into the emergency room today by EMS for cardiopulmonary arrest. Patient was said to be awaiting a Covid test when he was said to have passed out. CPR was started and also patient was defibrillated once. CPR was continued on the field by EMS and patient had a spontaneous return of circulation. Upon arrival in the emergency room patient had been receiving bag valve mask ventilation through a [place] airway. He was tachycardic and was subsequently intubated in the emergency room. Most of the history was obtained from the ER staff as patient is already intubated. Work-up in the emergency room today chest x-ray reveals:Bilateral airspace disease which could be related to alveolar edema or infection. CT scan of the head was unremarkable. Patient could not had a CT angiogram because of his size. Patient is being admitted for cardiopulmonary arrest and also possible Covid pneumonia. S/p cardiopulmonary arrest Toxic metabolic encephalopathy +/-anoxic injury UREMIC Acute hypoxic respiratory failure RYAN WITH CKD SECONDARY TO ATN Seizure disorder Hyperkalemia COVID-19 pneumonia Sepsis Transaminitis Morbid obesity. 09/15/2020. MRI brain for further evaluation. Continue AEDs of valproic acid and Keppra. Continue hemodialysis per nephrology recommendations. Overall prognosis remains guarded and poor. 09/16/2020. ID recommends continue to monitor patient off of antibiotics. Fever most likely of central etiology. Patient with questionable seizures versus myoclonus from anoxic brain injury. Patient unable to undergo MRI due to body habitus. Continue AEDs per neurology recommendations. Inflammatory markers elevated. Patient was recently hospitalized for [place] the [place] being [place]. Patient not a candidate for remdesivir due to hepatic and renal failure. Viral hepatitis panel negative. Overall prognosis extremely poor. 09/17/2020. Fevers have resolved over the past 48 hours. Continue to monitor off antibiotics per ID recommendations. Patient with questionable seizures versus myoclonus from anoxic brain injury. Patient unable to undergo MRI due to body habitus. EEG is nonspecific but given CT of head findings consistent with anoxic encephalopathy, brain injury. Continue AEDs per neurology recommendations. Inflammatory markers elevated. Patient was recently hospi talized for COVID-19 pneumonia at the [place] to being hospitalized [place]. Patient not a candidate for remdesivir due to hepatic and renal failure. Viral hepatitis panel negative. Patient is s/p emergent HD on Friday (hyperK) and Friday - 09/08. Patient also S/p HD 09/15. Continue hemodialysis per nephrology recommendations. Patient currently on AC/PRVC mode ventilation with rate of 30, tidal volume 475, FiO2 30% and PEEP of 6. As stated in neuro note, overall prognosis is very poor. 09/18/2020. Fevers have resolved over the past 72 hours. Continue to monitor off antibiotics per ID recommendations. Leukocytosis persistent for the past 4 days. Patient with questionable seizures/myoclonus from anoxic brain injury. Patient unable to undergo MRI due to body habitus. EEG is nonspecific but given CT of head findings consistent with anoxic encephalopathy, brain injury. Continue AEDs per neurology recommendations. Inflammatory markers elevated. Patient was recently hospitalized for COVID-[place] pneumonia at the [place]. Patient not a candidate for remdesivir due to hepatic and renal failure. Viral hepatitis panel negative. Patient currently on AC/P RVC mode ventilation with rate of 30, tidal volume 475, FiO2 30% and PEEP of 6. Overall prognosis remains guarded/poor. 07/19/2021 Fevers have resolved over the past 4 days. Continue to monitor off antibiotics per ID recommendations. Leukocytosis persistent for the past 4 days. Patient with questionable seizures/myoclonus from anoxic brain injury. Patient unable to undergo MRI due to body habitus. EEG is nonspecific but given CT of head findings consistent with anoxic encephalopathy, brain injury. Continue AEDs per neurology recommendations. Inflammatory markers elevated. Patient was recently hospitalized for COVID-19 pneumonia at the [place]. Patient not a candidate for remdesivir due to hepatic and renal failure. Viral hepatitis panel negative. Patient currently on AC/PRVC mode ventilation with rate of 30, tidal volume 475, FiO2 30% and PEEP of 6. Overall prognosis remains guarded/poor. 09/20/2020 -Surgery consulted for PEG and trach, will continue to follow. 09/21/2020; patient will have PEG and trach by Dr. hayes today. Prognosis is poor. Continue with current management. Turnaround Planner is following for vent management. 09/22/2020; patient had PEG and trach yesterday. 09/23/2020; continue PEG Tube Feeding. 07/24/2021; continue PEG tube feeding, patient is on Keppra, lorazepam and phenytoin per neurology recommendation. Patient is on hemodialysis and nephrology is following. Management of mechanical ventilation for CCM. 09/25/2020. Continue PEG tube feeding, patient is on Keppra, lorazepam and phenytoin per neurology recommendation. Patient is on hemodialysis and nephrology is following. Management of mechanical ventilation for CCM. Continue PSV/CPAP 12/6. Continue tracheostomy care, secretion control and airway management. 09/26/2020. Patient has tolerated PSV for approximately 48 hours. I discussed with pulmonary possibility of T-piece today. Continue tracheostomy care, secretion control and airway management. If patient tolerates T-piece trials, patient will be transferred to the floor. Continue AEDs of Keppra and phenytoin as well as Ativan as needed per neurology recommendations. Continue hemodia lysis per nephrology. Continue TF with aspiration precautions. 09/27/2020. Patient continues to tolerate PSV 12/6 at 30% FiO2. T-piece trials per pulmonary. Continue tracheostomy care, secretion control and airway management. Continue AEDs of Keppra and phenytoin as well as Ativan as needed per neurology recommendations. Continue hemodialysis per nephrology. Continue TF with aspiration precautions. 09/28/2020. Patient for T-piece trials per pulmonary. Continue hemodialysis per nephrology. Continue tracheostomy care, secretion control and airway management. Continue AEDs of Keppra and phenytoin as well as Ativan as needed per neurology recommendations. Continue TF with aspiration precautions. 09/29/2020, continue T-piece trials per pulmonary. Continue hemodialysis per nephrology. Continue strict I/O's and labs daily. Monitor for renal recovery. 09/30/2020. Continue T-piece trials per pulmonary recommendations. Continue tracheostomy care, secretion control and airway management. Continue hemodialysis per nephrology. Tight glycemic control. Continue TF with aspiration precautions. 10/01/2020. Patient with T-piece trials and tolerating. Wean to trach collar per pulmonary. Continue tracheostomy care, secretion control and airway management. Continue hemodialysis per nephrology. Tight glycemic control. Continue TF with aspiration precautions. Case management consultation for placement 10/02/20. Continue T-piece trials per pulmonary recommendations. Continue tracheostomy care, secretion control and airway management. Continue hemodialysis per nephrology. Tight glycemic control. Continue TF with aspiration precautions. 10/03/2020. Continue T-piece trials per pulmonology. Continue tracheostomy care, secretion control and airway management. Continue modalities per nephrology. Discharge planning underway. Needs placement to SNF versus hospice. 10/04/2020. Patient remained febrile with temperature 101 F. Ordered blood culture, chest x-ray, urinalysis. Plan to start antibiotics after blood cultures been obtained. Patient remains hemodynamically stable. Plan to discharge to SNF versus inpatient hospice on the way. 10/05/2020. Started on antibiotics yesterday. Awaiting blood culture. He developed atrial fibrillation with RVR and was placed on amiodaron see awaiting placement. E drip with subsequent conversion to SR. Now on amiodarone PO. Discussed with patients - she would like him to go inpatient hospice or a rodent exterminator care facility. As per CM, [place] not approving L[place] at this time. As is still undecided about hospice, inpatient hospice is not accepting h im at this time. has placed a referral to a SNF with inpatient dialysis. Awaiting response from the SNF. 10/06/2020. Hb drop noted. Not on therapeutic anticoagulation [atrial fibrillation] due to duration of atrial fibrillation [lasted less than 2 hours] and also drop in hemoglobin. Continue to monitor hemoglobin. Repeat labs ordered today. Vitals stable. Discussed with patient's yesterday 10/07. HR is controlled. Pending placement. As per CM notes, patient denied acceptance at a [facility] as he has [facility] insurance. Will discuss with CM to know other options are available. 10/08. Vitals stable. Will discuss discharge plan with spouse today as it looks like only option left is inpatient hospice. 10/09. Vitals stable. Will discuss discharge plan with spouse today as it looks like only option left is inpatient hospice 10/10. Discussed with patient spouse. Patient spouse asking to see patient in the hospital. vocational case manager on board. Patient has not had hemodialysis since 10/05. Creatinine stable at 4.6. Nephrology on board 10/11. DC planning underway. Patient spouse to see patient in hospital today. Vitals remained stable. Creatinine stable as well. Increase Lantus to 36 units daily. 10/12. Patient started having fever yesterday-temp 102 Fahrenheit. Stat blood cultures were drawn today, urinalysis, urine culture, chest x-ray, procalcitonin ordered. Start on empirical antibiotics for possible hospital acquired pneumonia. ID consulted. H&H shows hemoglobin 4.6 patient will receive 2 units PRBCs.. Check H&H after admission. Check stool guaiac. 10/13. Patient with new sepsis. Follow-up blood, sputum and urine cultures. Continue empiric antibiotics of cefepime and vancomycin. Chest x-ray appears to be unchanged. Urinalysis revealed pyuria. H&H is stabilized from PRBCs. Continue to follow H&H 10/14. Urine culture reveals yeast. Blood cultures thus far negative. Continue empiric antibiotics of cefepime and vancomycin per ID recommendations. Nephrology had long discussion regarding initiation of hemodialysis. Software Development Analyst conveyed to the spouse Yoko yesterday that prognosis is overall not good and his mortality risk is very high. Nephrology to potentially initiate hemodialysis today. I had a follow-up discussion with the spouse Yoko and reiterated poor prognosis. All questions answered. 10/15. Continue empiric antibiotics of cefepime and vancomycin per ID recommendations. Prognosis remains poor. Initiation of hemodialysis per nephrology recommendations. 10/16. PEG tube currently not flushing per nursing. GI consultation for PEG tube dysfunction. Repeat blood cultures have been negative x72 hours. Continue IV antibiotics per ID recommendations. Patient with Acute kidney injury currently nonoliguric likely felt to be due to acute tubular necrosis which has been felt to be multifactorial. Nephrology reports no urgent or emergent indication for renal replacement therapy and that the wants to proceed with renal replacement therapy. Nephrology informed her that patient is high risk for any adverse outcome including mortality risk during dialysis. Overall poor prognosis. 10/17/2020; patient is on PEG tube feeding and functional. Repeat blood cultures were negative. Patient does not have any fever overnight. Patient finished 5 days of IV cefepime and vancomycin yesterday. Acute renal failure followed by nephrology and said patient not a candidate for CREW CAR DRIVER. And he is a poor candidate for dialysis. Will follow with nephrology for further recommendation. Overall prognosis is very poor. I order CT head to assess if brain edema is resolved, and to assess for anoxic brain injury. I put a consult for neurology to assess his prognosis and discussed with the family from neurology point of view. 10/18/2020; patient was evaluated by neurology and recommend MRI and EEG, MRI was not done because patient does not fit to the MRI table. CT head is ordered yesterday. Evaluated by ID and recommend to monitor off antibiotics. Nephrology is following. 10/19/2020 patient was evaluated by neurology and recommend MRI and EEG, MRI was not done because patient does not fit to the MRI table. CT head is ordered yesterday. Evaluated by ID and recommend to monitor off antibiotics. Nephrology is following. 10/20/2020; CT head was done and showed significant decrease in brain swelling. Nephrology is following. Pending SNF placement. 10/21/2020; no change in his brain function. Nephrology is following and said he is a poor candidate for dialysis. Ending SNF placement. Prognosis poor 10/22/2020;no change in his brain function. Nephrology is following and said he is a poor candidate for dialysis. Pending SNF placement. Prognosis poor. 10/23: Patient is awaiting placement to hospice he remains nonverbal to me this morning. No response to tactile stimuli. Spontaneous respiration. No adverse event reported overnight. Prognosis remains poor. Awaiting hospice based on documentation from case management. DISCUSS WITH SPOUSE, SHE WANTED REPEAT EEG. She wants to know if HD can be done. We will have tool lathe operator- give her a call. 10/24: Discussed with tool lathe operator. Case management also reports to me that the patient's spouse had signed DNR with hospice. Unfortunately clinical condition remains unchanged. Will place discharge for hospice once a bed is available Disposition: [facility] ([facility] Final Discharge Diagnosis (Prints w/discharge instructions): Cardiac arrest Time spent for discharge: 35 MINS Core Measure Documentation - Palliative Care Palliative Care/ Comfort Measures: Hospice Care - Core Measures Any of the following diagnoses?: none Exam - Physical Exam Narrative exam: VITAL SIGNS: Reviewed. GENERAL: The patient appears normally developed, but unresponsive to verbal or tactile stimuli vital signs as documented. HEAD: No signs of head trauma. EYES: Has eyes closed pupils equal reactive EARS: Unable to exam MOUTH: Oropharynx is normal. NECK: Trach aerosol trach CHEST: Chest with diminished breath sounds bilaterally. No wheezes, rales, or rhonchi. CARDIAC: Regular rate and rhythm. S1 and S2, without murmurs, gallops, or rubs. VASCULAR: +1 pitting edema edema. Peripheral pulses normal and equal in all extremities. ABDOMEN: PEG site intact soft, non tender and non distended. No rebound or guarding, and no masses palpated. Bowel Sounds normal. MUSCULOSKELETAL: Good range of motion of all major joints. Extremities without clubbing, cyanosis. With dependent pitting edema NEUROLOGIC EXAM: Profound encephalopathy not following any commands. PSYCHIATRIC: Unable to examine SKIN: detail exam as documented in skin assessment - Constitutional Vitals: Temp Pulse Resp BP Pulse Ox 98.2 F 69 12 107/48 97 10/24/20 07:18 10/24/20 07:18 10/24/20 07:18 10/24/20 07:18 10/24/20 08:29 Plan Activity: advance as tolerated, fall precautions Follow up with: PRIMARY CAREMD [Primary Care Provider] - 3-5 Days
[2020-10-24] MEDS: levETIRAcetam 500 MG/5 ML ORAL LIQD PO SCH ×2 (13:09→22:08)
[2020-10-24] MEDS: VALPROIC ACID 250 MG/5 ML ORAL LIQD FEEDTUBE SCH ×2 (13:10→22:08)
[2020-10-24] MEDS: INSULIN GLARGINE 100 UNITS/ML SUB-Q SCH (13:48)
[2020-10-24] MEDS: LANSOPRAZOLE 30 MG SOLUTAB FEEDTUBE SCH (13:48)
[2020-10-24 15:25] LABS: Calcium 9.7 mg/dL (8.4-10.2)
[2020-10-25 05:29] LABS: Hematocrit 22.5 % (35.5-45.6); Hemoglobin 7.5 gm/dl (11.8-15.2); Mean Corpuscular HGB Conc 33 % (32-34); Mean Corpuscular Volume 89 fl (84-94); Platelet Count 218 K/mm3 (140-440); Red Blood Count 2.54 M/mm3 (3.65-5.03); Red Cell Distribution Width 19.7 % (13.2-15.2)
[2020-10-25 05:35] LABS: Basophils % (Auto) 0.4 % (0.0-1.8); Eosinophils # (Auto) 0.1 K/mm3 (0.0-0.4); Eosinophils % (Auto) 1.1 % (0.0-4.3); Lymphocytes # (Auto) 2.5 K/mm3 (1.2-5.4); Lymphocytes % (Auto) 29.1 % (13.4-35.0); Monocytes # (Auto) 1.2 K/mm3 (0.0-0.8); Monocytes % (Auto) 14.3 % (0.0-7.3)
[2020-10-25 05:36] LABS: Calcium 9.5 mg/dL (8.4-10.2)
[2020-10-25] MEDS: INSULIN LISPRO 100 UNIT/ML SUB-Q SCH ×2 (05:58)
[2020-10-25] MEDS: ACETAMINOPHEN 325 MG/10.15 ML ORAL LIQD UNIT DOSE PO PRN (05:59)
[2020-10-25] MEDS: hydrALAZINE 25 MG TAB PO SCH (05:59)
[2020-10-25 08:07] VITALS: BP 153/66
[2020-10-25] MEDS: levETIRAcetam 500 MG/5 ML ORAL LIQD PO SCH (09:50)
[2020-10-25] MEDS: VALPROIC ACID 250 MG/5 ML ORAL LIQD FEEDTUBE SCH (09:50)
[2020-10-25] MEDS: LANSOPRAZOLE 30 MG SOLUTAB FEEDTUBE SCH (09:51)
[2020-10-25] MEDS: MULTIVITAMINS 5 ML ORAL LIQUID PO SCH (09:51)
[2020-10-25] MEDS: AMIODARONE 200 MG TAB PO SCH (09:56)
[2020-10-25] MEDS: INSULIN GLARGINE 100 UNITS/ML SUB-Q SCH (10:00)
--- NOTE | 2020-10-25 10:36 | Progress Note ---
Assessment and Plan Assessment and plan: 65-year-old male brought into the emergency room today by EMS for cardiopulmonary arrest. Patient was said to be awaiting a Covid test when he was said to have passed out. CPR was started and also patient was defibrillated once. CPR was continued on the field by EMS and patient had a spontaneous retur n of circulation. Upon arrival in the emergency room patient had been receiving bag valve mask ventilation through a [place] airway. He was tachycardic and was subsequently intubated in the emergency room. Most of the history was obtained from the ER staff as patient is already intubated. Work-up in the emergency room today chest x-ray reveals:Bilateral airspace disease which could be related to alveolar edema or infection. CT scan of the head was unremarkable. Patient could not had a CT angiogram because of his size. Patient is being admitted for cardiopulmonary arrest and also possible Covid pneumonia. S/p cardiopulmonary arrest Toxic metabolic encephalopathy +/-anoxic injury UREMIC Acute hypoxic respiratory failure RYAN WITH CKD SECONDARY TO ATN Seizure disorder Hyperkalemia COVID-19 pneumonia Sepsis Transaminitis Morbid obesity. 09/15/2020. MRI brain for further evaluation. Continue AEDs of valproic acid and Keppra. Continue hemodialysis per nephrology recommendations. Overall prognosis remains guarded and poor. 09/16/2020. ID recommends continue to monitor patient off of antibiotics. Fever most likely of central etiology. Patient with questionable seizures versus myoclonus from anoxic brain injury. Patient unable to undergo MRI due to body habitus. Continue AEDs per neurology recommendations. Inflammatory markers elevated. Patient was recently hospitalized for COVID-19 pneumonia at the [place] prior to being hospitalized here. Patient not a candidate for remdesivir due to hepatic and renal failure. Viral hepatitis panel negative. Overall prognosis extremely poor. 09/17/2020. Fevers have resolved over the past 48 hours. Continue to monitor off antibiotics per ID recommendations. Patient with questionable seizures versus myoclonus from anoxic brain injury. Patient unable to undergo MRI due to body habitus. EEG is nonspecific but given CT of head findings consistent with anoxic encephalopathy, brain injury. Continue AEDs per neurology recommendations. Inflammatory markers elevated. Patient was recently hospitalized for COVID-19 pneumonia at the [place] prior to being hospitalized here. Patient not a candidate for remdesivir due to hepatic and renal failure. Viral hepatitis panel negative. Patient is s/p emergent HD on Friday (hyperK) and Friday - 09/08. Patient also S/p HD 09/15. Continue hemodialysis per nephrology recommendations. Patient currently on AC/PRVC mode ventilation with rate of 30, tidal volume 475, FiO2 30% and PEEP of 6. As stated in neuro note, overall prognosis is very poor. 09/18/2020. Fevers have resolved over the past 72 hours. Continue to monitor off antibiotics per ID recommendations. Leukocytosis persistent for the past 4 days. Patient with questionable seizures/myoclonus from anoxic brain injury. Patient unable to undergo MRI due to body habitus. EEG is nonspecific but given CT of head findings consistent with anoxic encephalopathy, brain injury. Continue AEDs per neurology recommendations. Inflammatory markers elevated. Patient was recently hospitalized for COVID-19 pneumonia at the [place] prior to being hospitalized here. Patient not a candidate for remdesivir due to hepatic and renal failure. Viral hepatitis panel negative. Patient currently on AC/PRVC mode ventilation with rate of 30, tidal volume 475, FiO2 30% and PEEP of 6. Overall prognosis remains guarded/poor. 07/19/2021 Fevers have resolved over the past 4 days. Continue to monitor off antibiotics per ID recommendations. Leukocytosis persistent for the past 4 days. Patient with questionable seizures/myoclonus from anoxic brain injury. Patient unable to undergo MRI due to body habitus. EEG is nonspecific but given CT of head findings consistent with anoxic encephalopathy, brain injury. Continue AEDs per neurology recommendations. Inflammatory markers elevated. Patient was recently hospitalized for COVID-19 pneumonia at the [place] prior to being hospitalized [place]. Patient not a candidate for remdesivir due to hepatic and renal failure. Viral hepatitis panel negative. Patient currently on AC/PRVC mode ventilation with rate of 30, tidal volume 475, FiO2 30% and PEEP of 6. Overall prognosis remains guarded/poor. 09/20/2020 -Surgery consulted for PEG and trach, will continue to follow. 09/21/2020; patient will have PEG and trach by Dr. hayes today. Prognosis is poor. Continue with current management. Marketing Regional Consultant is following for vent management. 09/22/2020; patient had PEG and trach yesterday. 09/23/2020; continue PEG Tube Feeding. 07/24/2021; continue PEG tube feeding, patient is on Keppra, lorazepam and phenytoin per neurology recommendation. Patient is on hemodialysis and ne phrology is following. Management of mechanical ventilation for CCM. 09/25/2020. Continue PEG tube feeding, patient is on Keppra, lorazepam and phenytoin per neurology recommendation. Patient is on hemodialysis and nephrology is following. Management of mechanical ventilation for CCM. Continue PSV/CPAP 12/6. Continue tracheostomy care, secretion control and airway management. 09/26/2020. Patient has tolerated PSV for approximately 48 hours. I discussed with pulmonary possibility of T-piece today. Continue tracheostomy care, secretion control and airway management. If patient tolerates T-piece trials, patient will be transferred to the floor. Continue AEDs of Keppra and phenytoin as well as Ativan as needed per neurology recommendations. Continue hemodialysis per nephrology. Continue TF with aspiration precautions. 09/27/2020. Patient continues to tolerate PSV /6 at 30% FiO2. T-piece trials per pulmonary. Continue tracheostomy care, secretion control and airway manage ment. Continue AEDs of Keppra and phenytoin as well as Ativan as needed per neurology recommendations. Continue hemodialysis per nephrology. Continue TF with aspiration precautions. 09/28/2020. Patient for T-piece trials per pulmonary. Continue hemodialysis per nephrology. Continue tracheostomy care, secretion control and airway management. Continue AEDs of Keppra and phenytoin as well as Ativan as needed per neurology recommendations. Continue TF with aspiration precautions. 09/29/2020, continue T-piece trials per pulmonary. Continue hemodialysis per nephrology. Continue strict I/O's and labs daily. Monitor for renal recovery. 09/30/2020. Continue T-piece trials per pulmonary recommendations. Continue tracheostomy care, secretion control and airway management. Continue hemodialys is per nephrology. Tight glycemic control. Continue TF with aspiration precautions. 10/01/2020. Patient with T-piece trials and tolerating. Wean to trach collar per pulmonary. Continue tracheostomy care, secretion control and airway management. Continue hemodialysis per nephrology. Tight glycemic control. Continue TF with aspiration precautions. Case management consultation for placement 10/02/20. Continue T-piece trials per pulmonary recommendations. Continue tracheostomy care, secretion control and airway management. Continue hemodialysis per nephrology. Tight glycemic control. Continue TF with aspiration precautions. 10/03/2020. Continue T-piece trials per pulmonology. Continue tracheostomy care, secretion control and airway management. Continue modalities per nephrology. Discharge planning underway. Needs placement to SNF versus hospice. 10/04/2020. Patient remained febrile with temperature 101 F. Ordered blood culture, chest x-ray, urinalysis. Plan to start antibiotics after blood cultures been obtained. Patient remains hemodynamically stable. Plan to disc harge to SNF versus inpatient hospice on the way. 10/05/2020. Started on antibiotics yesterday. Awaiting blood culture. He developed atrial fibrillation with RVR and was placed on amiodaron see awaiting placement. E drip with subsequent conversion to SR. Now on amiodarone PO. 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 As per CM, [place] not approving LTC placement at this time. As is still undecided about hospice, inpatient hospice is not accepting h im at this time. has placed a referral to a SNF with inpatient dialysis. Awaiting response from the SNF. 10/06/2020. Hb drop noted. Not on therapeutic anticoagulation [atrial fi brillation] due to duration of atrial fibrillation [lasted less than 2 hours] and also drop in hemoglobin. Continue to monitor hemoglobin. Repeat labs ordered today. Vitals stable. Discussed with patient's yesterday 10/07. HR is controlled. Pending placement. As per CM notes, patient denied acceptance at a [facility] as he has VA insurance. Will discuss with CM to know other options are available. 10/08. Vitals stable. Will discuss discharge plan with spouse today as it looks like only option left is inpatient hospice. 10/09. Vitals stable. Will discuss discharge plan with spouse today as it looks like only option left is inpatient hospice 10/10. Discussed with patient spouse. Patient spouse asking to see patient in the hospital. manager workers compensation on board. Patient has not had hemodialysis since 10/05. Creatinine stable at 4.6. Nephrology on board 10/11. DC planning underway. Patient spouse to see patient in hospital today. Vitals remained stable. Creatinine stable as well. Increase Lantus to 36 units daily. 10/12. Patient started having fever yesterday-temp 102 Fahrenheit. Stat blood cultures were drawn today, urinalysis, urine culture, chest x-ray, procalcitonin ordered. Start on empirical antibiotics for possible hospital acquired pneumonia. ID consulted. H&H shows hemoglobin 4.6 patient will receive 2 units PRBCs.. Check H&H after admission. Check stool guaiac. 10/13. Patient with new sepsis. Follow-up blood, sputum and urine cultures. Continue empiric antibiotics of cefepime and vancomycin. Chest x-ray appears to be unchanged. Urinalysis revealed pyuria. H&H is stabilized from PRBCs. Continue to follow H&H 10/14. Urine culture reveals yeast. Blood cultures thus far negative. Continue empiric antibiotics of cefepime and vancomycin per ID recommendations. Nephrology had long discussion regarding initiation of hemodialysis. Switchboard Troubleshooter conveyed to the spouse Yoko yesterday that prognosis is overall not good and his mortality risk is very high. Nephrology to potentially initiate hemodialysis today. I had a follow-up discussion with the spouse Yoko and reiterated poor prognosis. All questions answered. 10/15. Continue empiric antibiotics of cefepime and vancomycin per ID recommendations. Prognosis remains poor. Initiation of hemodialysis per nephrology recommendations. 10/16. PEG tube currently not flushing per nursing. GI consultation for PEG tube dysfunction. Repeat blood cultures have been negative x72 hours. Continue IV antibiotics per ID recommendations. Patient with Acute kidney injury currently nonoliguric likely felt to be due to acute tubular necrosis which has been felt to be multifactorial. Nephrology reports no urgent or emergent indication for renal replacement therapy and that the wants to proceed with renal replacement therapy. Nephrology informed her that patient is high risk for any adverse outcome including mortality risk during dialysis. Overall poor prog nosis. 10/17/2020; patient is on PEG tube feeding and functional. Repeat blood cultures were negative. Patient does not have any fever overnight. Patient finished 5 days of IV cefepime and vancomycin yesterday. Acute renal failure followed by nephrology and said patient not a candidate for CABLE DISPATCHER. And he is a poor candidate for dialysis. Will follow with nephrology for further recommendation. Overall prognosis is very poor. I order CT head to assess if brain edema is resolved, and to assess for anoxic brain injury. I put a consult for neurology to assess his prognosis and discussed with the family from neurology point of view. 10/18/2020; patient was evaluated by neurology and recommend MRI and EEG, MRI was not done because patient does not fit to the MRI table. CT head is ordered ye sterday. Evaluated by ID and recommend to monitor off antibiotics. Nephrology is following. 10/19/2020 patient was evaluated by neurology and recommend MRI and EEG, MRI was not done because patient does not fit to the MRI table. CT head is ordered yesterday. Evaluated by ID and recommend to monitor off antibiotics. Nephrology is following. 10/20/2020; CT head was done and showed significant decrease in brain swelling. Nephrology is following. Pending SNF placement. 10/21/2020; no change in his brain function. Nephrology is following and said he is a poor candidate for dialysis. Ending SNF placement. Prognosis poor 10/22/2020;no change in his brain function. Nephrology is following and said he is a poor candidate for dialysis. Pending SNF placement. Prognosis poor. 10/23: Patient is awaiting placement to hospice he remains nonverbal to me this morning. No response to tactile stimuli. Spontaneous respiration. No adverse event reported overnight. Prognosis remains poor. Awaiting hospice based on documentation from case management. DISCUSS WITH SPOUSE, SHE WANTED REPEAT EEG. She wants to know if HD can be done. We will have intervention specialist- give her a call. 10/24: Discussed with intervention specialist. Case management also reports to me that the patient's spouse had signed DNR with hospice. Unfortunately clinical condition remains unchanged. Will place discharge for hospice once a bed is available 10/25: Clinically remains unchanged. Patient was not discharged yesterday due to hospice bed availability being discharged today. History Interval history: Patient seen and examined, remains unresponsive, no new issues overnight. Plan for discharge today to hospice Hospitalist Physical - Physical exam Narrative exam: VITAL SIGNS: Reviewed. GENERAL: The patient appears normally developed, but unresponsive to verbal or tactile stimuli vital signs as documented. HEAD: No signs of head trauma. EYES: Has eyes closed pupils equal reactive EARS: Unable to exam MOUTH: Oropharynx is normal. NECK: Trach aerosol trach CHEST: Chest with diminished breath sounds bilaterally. No wheezes, rales, or rhonchi. CARDIAC: Regular rate and rhythm. S1 and S2, without murmurs, gallops, or rubs. VASCULAR: +1 pitting edema edema. Peripheral pulses normal and equal in all extremities. ABDOMEN: PEG site intact soft, non tender and non distended. No rebound or guarding, and no masses palpated. Bowel Sounds normal. MUSCULOSKELETAL: Good range of motion of all major joints. Extremities without clubbing, cyanosis. With dependent pitting edema NEUROLOGIC EXAM: Profound encephalopathy not following any commands. PSYCHIATRIC: Unable to examine SKIN: detail exam as documented in skin assessment - Constitutional Vitals: Temp Pulse Resp BP Pulse Ox 99.4 F 84 38 H 153/66 95 10/25/20 07:30 10/25/20 07:30 10/25/20 07:30 10/25/20 07:30 10/25/20 07:30 General appearance: Present: other (On mechanical ventilation) HEART Score - HEART Score Troponin: Troponin T 0.076 ng/mL (0.00-0.029) H 09/07/20 14:00 Results - Labs CBC & Chem 7: 10/25/20 04:56 10/25/20 04:56 Labs: Laboratory Last Values WBC 8.6 K/mm3 (4.5-11.0) 10/25/20 04:56 RBC 2.54 M/mm3 (3.65-5.03) L 10/25/20 04:56 Hgb 7.5 gm/dl (11.8-15.2) L 10/25/20 04:56 Hct 22.5 % (35.5-45.6) L 10/25/20 04:56 MCV 89 fl (84-94) 10/25/20 04:56 MCH 29 pg (28-32) 10/25/20 04:56 MCHC 33 % (32-34) 10/25/20 04:56 RDW 19.7 % (13.2-15.2) H 10/25/20 04:56 Plt Count 218 K/mm3 (140-440) 10/25/20 04:56 Lymph % (Auto) 29.1 % (13.4-35.0) 10/25/20 04:56 [place] % (Auto) 14.3 % (0.0-7.3) H 10/25/20 04:56 Eos % (Auto) 1.1 % (0.0-4.3) 10/25/20 04:56 Baso % (Auto) 0.4 % (0.0-1.8) 10/25/20 04:56 Lymph # (Auto) 2.5 K/mm3 (1.2-5.4) 10/25/20 04:56 [place] # (Auto) 1.2 K/mm3 (0.0-0.8) H 10/25/20 04:56 Eos # (Auto) 0.1 K/mm3 (0.0-0.4) 10/25/20 04:56 Baso # (Auto) 0.0 K/mm3 (0.0-0.1) 10/25/20 04:56 Add Manual Diff Complete 10/12/20 08:36 Total Counted 100 10/12/20 08:36 Seg Neutrophils % 55.1 % (40.0-70.0) 10/25/20 04:56 Seg Neuts % (Manual) 75.0 % (40.0-70.0) H 10/12/20 08:36 Band Neutrophils % 8.0 % 09/30/20 06:57 Lymphocytes % (Manual) 17.0 % (13.4-35.0) 10/12/20 08:36 Monocytes % (Manual) 5.0 % (0.0-7.3) 10/12/20 08:36 Eosinophils % (Manual) 2.0 % (0.0-4.3) 10/12/20 08:36 Basophils % (Manual) 1.0 % (0.0-1.8) 10/12/20 08:36 Metamyelocytes % 2.0 % 09/08/20 Unknown Promyelocytes % 0 % 10/04/20 10:32 Nucleated RBC % Not Reportable 10/12/20 08:36 Seg Neutrophils # 4.8 K/mm3 (1.8-7.7) 10/25/20 04:56 Seg Neutrophils # Man 10.6 K/mm3 (1.8-7.7) H 10/12/20 08:36 Band Neutrophils # 0.0 K/mm3 10/12/20 08:36 Lymphocytes # (Manual) 2.4 K/mm3 (1.2-5.4) 10/12/20 08:36 Abs React Lymphs (Man) 0.0 K/mm3 10/12/20 08:36 Monocytes # (Manual) 0.7 K/mm3 (0.0-0.8) 10/12/20 08:36 Eosinophils # (Manual) 0.3 K/mm3 (0.0-0.4) 10/12/20 08:36 Basophils # (Manual) 0.1 K/mm3 (0.0-0.1) 10/12/20 08:36 Metamyelocytes # 0.0 K/mm3 10/12/20 08:36 Myelocytes # 0.0 K/mm3 10/12/20 08:36 Promyelocytes # 0.0 K/mm3 10/12/20 08:36 Blast Cells # 0.0 K/mm3 10/12/20 08:36 WBC Morphology Not Reportable 10/12/20 08:36 Hypersegmented Neuts Not Reportable 10/12/20 08:36 Hyposegmented Neuts Not Reportable 10/12/20 08:36 Hypogranular Neuts Not Reportable 10/12/20 08:36 Smudge Cells Not Reportable 10/12/20 08:36 Toxic Granulation Not Reportable 10/12/20 08:36 Toxic Vacuolation Not Reportable 10/12/20 08:36 Dohle Bodies Not Reportable 10/12/20 08:36 Pelger-Huet Anomaly Not Reportable 10/12/20 08:36 Justus Rods Not Reportable 10/12/20 08:36 Platelet Estimate Consistent w auto 10/12/20 08:36 Clumped Platelets Not Reportable 10/12/20 08:36 Plt Clumps, EDTA Not Reportable 10/12/20 08:36 Large Platelets Not Reportable 10/12/20 08:36 Giant Platelets Not Reportable 10/12/20 08:36 Platelet Satelliting Not Reportable 10/12/20 08:36 Plt Morphology Comment Not Reportable 10/12/20 08:36 RBC Morphology Not Reportable 10/12/20 08:36 Dimorphic RBCs Not Reportable 10/12/20 08:36 Polychromasia Not Reportable 10/12/20 08:36 Hypochromasia 1+ 10/12/20 08:36 Poikilocytosis Not Reportable 10/12/20 08:36 Anisocytosis Not Reportable 10/12/20 08:36 Microcytosis Not Reportable 10/12/20 08:36 Macrocytosis Not Reportable 10/12/20 08:36 Spherocytes Not Reportable 10/12/20 08:36 Pappenheimer Bodies Not Reportable 10/12/20 08:36 Sickle Cells Not Reportable 10/12/20 08:36 Target Cells Not Reportable 10/12/20 08:36 Tear Drop Cells Not Reportable 10/12/20 08:36 Ovalocytes Not Reportable 10/12/20 08:36 Helmet Cells Not Reportable 10/12/20 08:36 [place] Bodies Not Reportable 10/12/20 08:36 [place] Rings Not Reportable 10/12/20 08:36 [place] Cells Not Reportable 10/12/20 08:36 Bite Cells Not Reportable 10/12/20 08:36 Crenated Cell Not Reportable 10/12/20 08:36 Elliptocytes Not Reportable 10/12/20 08:36 Acanthocytes (Spur) Not Reportable 10/12/20 08:36 Rouleaux Not Reportable 10/12/20 08:36 Hemoglobin C Crystals Not Reportable 10/12/20 08:36 Schistocytes Not Reportable 10/12/20 08:36 Malaria parasites Not Reportable 10/12/20 08:36 [place] Bodies Not Reportable 10/12/20 08:36 Hem Pathologist Commnt No 10/12/20 08:36 PT 16.1 Sec. (12.2-14.9) H 09/12/20 04:00 INR 1.31 (0.87-1.13) H 09/12/20 04:00 APTT 32.4 Sec. (24.2-36.6) 09/09/20 10:00 D-Dimer 8315.85 ng/mlDDU (0-234) H 09/07/20 14:00 ABG pH 7.468 (7.320-7.450) H 10/02/20 10:16 POC ABG pCO2 37.1 mmHg (32.0-48.0) 10/02/20 10:16 ABG pCO2 33.4 mm Hg 09/11/20 05:40 POC ABG pO2 72.9 mmHg (83-108) L 10/02/20 10:16 ABG pO2 112.1 mm Hg (80.0-90.0) H 09/11/20 05:40 POC ABG HCO3 26.3 10/02/20 10:16 ABG HCO3 28.1 mmol/L (20.0-26.0) H 09/11/20 05:40 ABG O2 Saturation 98.4 % (95.0-99.0) 09/11/20 05:40 ABG O2 Content 11.6 (0.0-44) 09/11/20 05:40 POC ABG Base Excess 2.6 10/02/20 10:16 ABG Base Excess 5.4 mmol/L (-2.0-3.0) H 09/11/20 05:40 ABG Hemoglobin 10.1 (12.0-17.5) L 10/02/20 10:16 ABG Oxyhemoglobin 93.1 (94-98) L 10/02/20 10:16 ABG Carboxyhemoglobin 1.2 % (0.0-5.0) 09/11/20 05:40 ABG Methemoglobin 0.3 (0.0-1.5) 10/02/20 10:16 ABG Sodium 138.5 mmol/L (136.0-145.0) 10/02/20 10:16 ABG Potassium 3.9 mmol/L (3.40-4.50) 10/02/20 10:16 ABG Chloride 108.0 mmol/L (98-107) H 10/02/20 10:16 ABG Glucose 289 mg/dL (65-95) H 10/02/20 10:16 Oxyhemoglobin 96.8 % (95.0-99.0) 09/11/20 05:40 Carboxyhemoglobin 0.8 (0.5-1.5) 10/02/20 10:16 FiO2 35 10/02/20 10:16 Sodium 136 mmol/L (137-145) L 10/25/20 04:56 Potassium 4.8 mmol/L (3.6-5.0) 10/25/20 04:56 Chloride 98.7 mmol/L (98-107) 10/25/20 04:56 Carbon Dioxide 28 mmol/L (22-30) 10/25/20 04:56 Anion Gap 14 mmol/L 10/25/20 04:56 BUN 125 mg/dL (9-20) H 10/25/20 04:56 Creatinine 4.6 mg/dL (0.8-1.3) H 10/25/20 04:56 Estimated GFR 16 ml/min 10/25/20 04:56 BUN/Creatinine Ratio 27 % 10/25/20 04:56 Glucose 163 mg/dL (75-100) H 10/25/20 04:56 POC Glucose 164 mg/dL (70-105) H 10/25/20 07:10 Osmolality 353 Mosm/kg 10/13/20 09:29 Lactic Acid 2.90 mmol/L (0.7-2.0) H* 09/17/20 13:52 Uric Acid 8.6 mg/dL (3.5-7.6) H 10/13/20 09:29 Calcium 9.5 mg/dL (8.4-10.2) 10/25/20 04:56 Phosphorus 8.00 mg/dL (2.5-4.5) H 09/08/20 12:02 Magnesium 1.80 mg/dL (1.7-2.3) 09/08/20 12:02 Ferritin > 2000.0 ng/mL (30.0-300.0) H 09/07/20 14:00 Total Bilirubin 0.30 mg/dL (0.1-1.2) 10/06/20 10:12 Direct Bilirubin 0.5 mg/dL (0-0.2) H 09/08/20 05:00 Indirect Bilirubin 0.5 mg/dL 09/08/20 05:00 AST 52 units/L (5-40) H 10/06/20 10:12 ALT 28 units/L (7-56) 10/06/20 10:12 Alkaline Phosphatase 94 units/L (35-129) 10/06/20 10:12 Ammonia 50.0 umol/L (25-60) 09/07/20 14:00 Lactate Dehydrogenase 882 units/L (91-180) H 09/07/20 14:00 Total Creatine Kinase 477 units/L (55-170) H 09/07/20 14:00 Troponin T 0.076 ng/mL (0.00-0.029) H 09/07/20 14:00 C-Reactive Protein 1.10 mg/dL (0.00-1.30) 09/07/20 14:00 Total Protein 8.4 g/dL (6.3-8.2) H 10/06/20 10:12 Albumin 2.3 g/dL (3.9-5) L 10/06/20 10:12 Albumin/Globulin Ratio 0.4 % 10/06/20 10:12 Triglycerides 220 mg/dL (2-149) H 09/12/20 Unknown Procalcitonin 2.03 ng/mL (<0.15) 10/12/20 08:19 TSH 2.290 mlU/mL (0.270-4.200) 09/07/20 14:00 Arterial Blood Glucose 289 mg/dL (65-95) H 10/02/20 10:16 Arterial Blood Ionized Calcium 5.2 mg/dL (4.6-5.3) 10/02/20 10:16 Urine Color Yellow (Yellow) 10/13/20 14:45 Urine Turbidity Slightly-cloudy (Clear) 10/13/20 14:45 Urine pH 5.0 (5.0-7.0) 10/13/20 14:45 Ur Specific [place] 1.014 (1.003-1.030) 10/13/20 14:45 Urine Protein 100 mg/dl mg/dL (Negative) 10/13/20 14:45 Urine Glucose (UA) 50 mg/dL (Negative) 10/13/20 14:45 Urine Ketones Neg mg/dL (Negative) 10/13/20 14:45 Urine Blood Mod (Negative) 10/13/20 14:45 Urine Nitrite Neg (Negative) 10/13/20 14:45 Urine Bilirubin Neg (Negative) 10/13/20 14:45 Urine Urobilinogen < 2.0 mg/dL (<2.0) 10/13/20 14:45 Ur Leukocyte Esterase Neg (Negative) 10/13/20 14:45 Urine WBC (Auto) 6.0 /HPF (0.0-6.0) 10/13/20 14:45 Urine RBC (Auto) 29.0 /HPF (0.0-6.0) 10/13/20 14:45 U Epithel Cells (Auto) 1.0 /HPF (0-13.0) 10/13/20 14:45 Urine Bacteria (Auto) 2+ /HPF (Negative) 10/13/20 14:45 Urine WBC Clumps 3+ /HPF 10/12/20 10:25 Hyaline Casts 1 /LPF 10/05/20 09:15 Urine Mucus Few /HPF 10/13/20 14:45 Urine Yeast (Budding) 3+ /HPF 10/13/20 14:45 Urine Sperm Few /HPF (FAMILY SERVICES SPECIALIST) 10/13/20 14:45 Urine Creatinine < 4.2 mg/dL (0.1-20.0) 10/13/20 14:45 Urine Sodium 10 mmol/L 10/13/20 14:45 Random Vancomycin 12.4 ug/mL (0-40.0) 10/15/20 06:52 Salicylates < 0.3 mg/dL (2.8-20.0) L 09/07/20 14:00 Acetaminophen 5.0 ug/mL (10.0-30.0) L 09/07/20 14:00 Valproic Acid 58.9 ug/mL (50-100) 10/04/20 04:55 Plasma/Serum Alcohol < 0.01 % (0-0.07) 09/07/20 14:00 Coronavirus (PCR) Negative (Negative) 10/23/20 10:50 Hepatitis A IgM Ab Non-reactive (NonReactive) 09/07/20 14:00 Hep Bs Antigen Non-reactive (Negative) 09/07/20 14:00 Hep B Core IgM Ab Non-reactive (NonReactive) 09/07/20 14:00 Hepatitis C Antibody Non-reactive (NonReactive) 09/07/20 14:00 HIV 1&2 Antibody Rapid Non react (Non React) 09/07/20 14:34 HIV P24 Antigen Non react (Non React) 09/07/20 14:34 Blood Type O POSITIVE 10/12/20 11:04 Antibody Screen Negative 10/12/20 11:04 Crossmatch See Detail 10/12/20 11:04 Mae/IV: Voiding Method Condom Catheter IV Catheter Type [Right Triple Lumen Cath Femoral] IV Catheter Type [Left Peripheral IV Antecubital] IV Catheter Type [Left Hand] Peripheral IV IV Catheter Type [Right Peripheral IV Antecubital] Active Medications - Current Medications Current Medications: Generic Name Dose Route Start Last Admin Trade Name Freq PRN Reason Stop Dose Admin Acetaminophen 650 mg 10/02/20 09:00 10/25/20 05:59 Acetaminophen 325 Mg/10.15 Ml Oral Liqd Unit Dose PO 650 mg Q4HR PRN Administration Non Cardiac Pain or Temp>100.5 Amiodarone HCl 200 mg 10/05/20 11:00 10/25/20 09:56 Amiodarone 200 Mg Tab PO 200 mg BID TAYLOR Administration Lipase/Protease/Amylase 1 each 09/09/20 09:40 10/23/20 13:59 Lipase 10,500/Protease 25,000/Amylase 43,750 (Units) Dr Armenta FEEDTUBE 1 each PRN PRN Administration For Clogged Feeding Tube Hydralazine HCl 50 mg 09/23/20 14:00 10/25/20 05:59 Hydralazine 25 Mg Tab PO 50 mg Q8HR TAYLOR Administration Sodium Chloride 1,000 mls @ 75 mls/hr 10/18/20 13:00 Nacl 0.9% 1000 Ml IV DIRECT TAYLOR Insulin Glargine 40 units 10/19/20 10:00 10/25/20 10:00 Insulin Glargine 100 Units/Ml SUB-Q 40 units DAILY TAYLOR Administration Insulin Human Lispro 0 unit 09/12/20 12:00 10/25/20 05:58 Insulin Lispro 100 Unit/Ml SUB-Q Not Given Q6HR [facility] Protocol Lansoprazole 30 mg 10/13/20 10:00 10/25/20 09:51 Lansoprazole 30 Mg Solutab FEEDTUBE 30 mg DAILY TAYLOR Administration Levetiracetam 1,500 mg 09/28/20 10:00 10/25/20 09:50 Levetiracetam 500 Mg/5 Ml Oral Liqd PO 1,500 mg BID TAYLOR Administration Multivitamins 5 ml 09/09/20 12:00 10/25/20 09:51 Multivitamins 5 Ml Oral Liquid PO Not Given QDAY [facility] Ondansetron HCl 4 mg 09/07/20 17:55 09/19/20 04:00 Ondansetron 4 Mg/2 Ml Inj IV 4 mg Q8H PRN Administration Nausea And Vomiting Senna/Docusate Sodium 2 tab 09/20/20 11:00 Sennosides/Docusate Sodium 8.6/50 Mg Tab PO BID PRN Laxative Effect Simple Syrup 15 ml 09/09/20 09:40 10/19/20 22:12 Simple Syrup 15 Ml FEEDTUBE 15 ml PRN PRN Administration Hypoglycemia Simple Syrup 30 ml 09/09/20 09:40 10/20/20 06:41 Simple Syrup 15 Ml FEEDTUBE 30 ml PRN PRN Administration Hypoglycemia Sodium Bicarbonate 325 mg 09/09/20 09:40 10/23/20 13:59 Sodium Bicarbonate 325 Mg Tab FEEDTUBE 325 mg PRN PRN Administration For Clogged Feeding Tube Sodium Chloride 10 ml 09/07/20 22:00 10/25/20 09:54 Sodium Chloride 0.9% 10 Ml Flush Syringe IV 10 ml BID TAYLOR Administration Sodium Chloride 10 ml 09/07/20 17:55 Sodium Chloride 0.9% 10 Ml Flush Syringe IV PRN PRN LINE FLUSH Valproic Acid 1,000 mg 09/28/20 10:00 10/25/20 09:50 Valproic Acid 250 Mg/5 Ml Oral Liqd FEEDTUBE 1,000 mg BID TAYLOR Administration Nutrition/Malnutrition Assess - Dietary Evaluation Nutrition/Malnutrition Findings: Nutrition Notes Start: 09/08/20 12:01 Freq: Status: Active Protocol: Document 10/23/20 11:34 (Rec: 10/23/20 11:43 [id number]) Nutrition Notes Initial or Follow up Reassessment Current Diagnosis Acute Kidney Injury, Respiratory Failure Other Pertinent Diagnosis s/p cardiac arrest, COVID(-), Anoxic Encephalopathy, Pneu, Tubular Necrosis Current Diet Nepro 1.8 at 45 mL/hr (goal rate) Labs/Tests BUN 114 Cr 4.4 BG 199 Pertinent Medications Reviewed Height 6 ft Weight 98.6 kg [place] Body Weight (kg) 80.90 BMI 29.5 Weight change and time frame Unable to obtain new wt Weight Status Morbidly Obese Subjective/Other Information FU for TF tolerance. Per chart , pt tolerating. Observed Nepro running at goal rate. Per MD reports, flush 300 q4h. Percent of energy/protein needs met: 100%/73% Burn Absent Trauma Absent GI Symptoms None Difficulty In Swallowing Food Allergy No Current % PO Negligible Minimum of two criteria No Fluid Accumulation Mild (non-severe) #1 Nutrition Diagnosis Inadequate oral intake Diagnosis Progress(for reassessment Continues documentation) Is patient on ventilator? No Is Patient Ambulatory and/or Out of Bed No REE-([place]-confined to bed) 2181.756 Kcal/Kg value to use for calculation 19 Approximate Energy Requirements Using 1873 kcal/Kg Calculation Used for Recommendations Kcal/kg Additional Notes PRO needs: 119-143g (1-1.2 g/ kg AdBW 119 kg) Fluid needs: 0640-5178 ml or per MD Nutrition Intervention Change Diet Order: Continue TF Nutrition Support: Nepro 1.8 at 45 mL/hr. Flush with 120 ml q4h or per MD Kcal 1,944 Protein (gm) 87 Fluid (mL) 785 Goal #1 Meet kcal and protein needs as best as possible via TF Anticipated Discharge Needs: Nepro 1.8 at 45 mL/hr Follow-Up By: 10/27/20 Additional Comments FU for stable TF and wt
== END 2020-10-25 14:10 | disposition hospice, inpatient (51) | DRG 4 ==
LOC: ED 12:46 → CC1 17:07 → 4A 10-02 19:01 → IMCU 10-04 17:21 → 4A 10-05 18:52
PROVIDERS: ADMIT Internal Medicine Geriatric Medicine; ATTEND Internal Medicine
PROC: 5A1955Z Respiratory Ventilation, Greater than 96 Consecutive Hours (ICD-10-PCS; principal; 2020-09-07)
PROC: 0BH17EZ Insertion of Endotracheal Airway into Trachea, Via Natural or Artificial Opening (ICD-10-PCS; 2020-09-07)
PROC: 4A033R1 Measurement of Arterial Saturation, Peripheral, Percutaneous Approach (ICD-10-PCS; 2020-09-07)
PROC: 5A12012 Performance of Cardiac Output, Single, Manual (ICD-10-PCS; 2020-09-07)
PROC: 06HY33Z Insertion of Infusion Device into Lower Vein, Percutaneous Approach (ICD-10-PCS; 2020-09-08)
PROC: B54CZZA Ultrasonography of Left Lower Extremity Veins, Guidance (ICD-10-PCS; 2020-09-08)
PROC: 06HY33Z Insertion of Infusion Device into Lower Vein, Percutaneous Approach (ICD-10-PCS; 2020-09-08)
PROC: B54BZZA Ultrasonography of Right Lower Extremity Veins, Guidance (ICD-10-PCS; 2020-09-08)
PROC: 5A1D70Z Performance of Urinary Filtration, Intermittent, Less than 6 Hours Per Day (ICD-10-PCS; 2020-09-08)
PROC: 06HY33Z Insertion of Infusion Device into Lower Vein, Percutaneous Approach (ICD-10-PCS; 2020-09-09)
PROC: B54CZZA Ultrasonography of Left Lower Extremity Veins, Guidance (ICD-10-PCS; 2020-09-09)
PROC: 30233K1 Transfusion of Nonautologous Frozen Plasma into Peripheral Vein, Percutaneous Approach (ICD-10-PCS; 2020-09-09)
PROC: 5A1D70Z Performance of Urinary Filtration, Intermittent, Less than 6 Hours Per Day (ICD-10-PCS; 2020-09-09)
PROC: 5A1D70Z Performance of Urinary Filtration, Intermittent, Less than 6 Hours Per Day (ICD-10-PCS; 2020-09-15)
PROC: 5A1D70Z Performance of Urinary Filtration, Intermittent, Less than 6 Hours Per Day (ICD-10-PCS; 2020-09-18)
PROC: 5A1D70Z Performance of Urinary Filtration, Intermittent, Less than 6 Hours Per Day (ICD-10-PCS; 2020-09-20)
PROC: 0B113F4 Bypass Trachea to Cutaneous with Tracheostomy Device, Percutaneous Approach (ICD-10-PCS; 2020-09-21)
PROC: 0DH63UZ Insertion of Feeding Device into Stomach, Percutaneous Approach (ICD-10-PCS; 2020-09-21)
PROC: 0BJ08ZZ Inspection of Tracheobronchial Tree, Via Natural or Artificial Opening Endoscopic (ICD-10-PCS; 2020-09-21)
PROC: 5A1D70Z Performance of Urinary Filtration, Intermittent, Less than 6 Hours Per Day (ICD-10-PCS; 2020-09-22)
PROC: 5A1D70Z Performance of Urinary Filtration, Intermittent, Less than 6 Hours Per Day (ICD-10-PCS; 2020-09-25)
PROC: 5A1D70Z Performance of Urinary Filtration, Intermittent, Less than 6 Hours Per Day (ICD-10-PCS; 2020-09-27)
PROC: 5A1D70Z Performance of Urinary Filtration, Intermittent, Less than 6 Hours Per Day (ICD-10-PCS; 2020-09-29)
PROC: 5A1D70Z Performance of Urinary Filtration, Intermittent, Less than 6 Hours Per Day (ICD-10-PCS; 2020-10-02)
PROC: 5A1D70Z Performance of Urinary Filtration, Intermittent, Less than 6 Hours Per Day (ICD-10-PCS; 2020-10-04)
PROC: 30233N1 Transfusion of Nonautologous Red Blood Cells into Peripheral Vein, Percutaneous Approach (ICD-10-PCS; 2020-10-12)
DX: A41.89 Other specified sepsis (principal); U07.1 COVID-19; I46.9 Cardiac arrest, cause unspecified; N17.0 Acute kidney failure with tubular necrosis; J96.01 Acute respiratory failure with hypoxia; J12.82 Pneumonia due to coronavirus disease 2019; G92 Toxic encephalopathy; G40.802 Other epilepsy, not intractable, without status epilepticus; Z68.42 Body mass index [BMI] 45.0-49.9, adult; E66.01 Morbid (severe) obesity due to excess calories; E87.5 Hyperkalemia; D64.9 Anemia, unspecified; R74.01 Elevation of levels of liver transaminase levels; S06.890A Other specified intracranial injury without loss of consciousness, initial encounter; N18.9 Chronic kidney disease, unspecified; Z79.899 Other long term (current) drug therapy; Y93.89 Activity, other specified; Y92.89 Other specified places as the place of occurrence of the external cause; Y99.8 Other external cause status
CPT/HCPCS: 31500; 36415; 36600; 70450; 71045; 74018; 76770; 80048; 80053; 80074; 80076; 80164; 80202; 80320; 81001; 82140; 82550; 82570; 82728; 82803; 82805; 82947; 82962; 83615; 83735; 83930; 84100; 84132; 84145; 84300; 84443; 84478; 84484; 84550; 85007; 85014; 85018; 85025; 85027; 85379; 85610; 85730; 86140; 86850; 86900; 86901; 86920; 87040; 87070; 87086; 87205; 87806; 93005; 94002; 94003; 94760; 95819; 96361; 96365; 96366; 96367; 96375; 96376; G0378; C9113; G0480; J0282; J0360; J0456; J0692; J0696; J1100; J1644; J1815; J1953; J2060; J2405; J2597; J2704; J2765; J3010; J3370; J3430; J7030; J7040; J7060; J7070; P9016; P9017; U0003